=== PATIENT | female | born 1945 | race Caucasian/White ===

== ENCOUNTER 2018-03-30 14:43 | Emergency (ER) | payer OTHER, SELFPAY ==
[2018-03-30] VITALS (42 sets, daily range): BP systolic 98–143; BP diastolic 59–92; PULSE 75–101; RESP 12–33; TEMP 36.7–37; O2SAT 78–99
--- NOTE | 2018-03-30 15:27 | ED.GENADUL ---
Disposition Clinical Impression: Humerus fracture, Fall, Closed head injury without loss of consciousness, Alcohol use disorder, Alcohol intoxication Disposition: HOME Condition: Stable Instructions: Head Injury (ED), Alcohol Intoxication (ED), Proximal Humerus Fracture (ED) Additional Instructions: Take Tylenol as needed and directed for pain. Drink plenty of fluids and get plenty of rest. Take your regular medications as directed. Refrain from excessive alcohol use. Follow-up with your primary care doctor within the next week as needed. Follow-up with orthopedics in 2 weeks for reevaluation of your left shoulder fracture. Return to the emergency department with any worsening or new concerning symptoms. Referrals: Maximilian Villarreal MD [ [facility] STAFF PHYSICIAN] - Medical Decision Making - Lab Data Laboratory Results - last 24 hr 03/30/18 03/30/18 03/30/18 15:50 15:50 15:50 WBC 6.05 RBC 3.86 L Hgb 11.6 L Hct 35.8 L MCV 92.7 MCH 30.1 MCHC 32.4 RDW 17.1 H Plt Count 208 MPV 9.5 Immature Gran % 0.7 Neutrophils % 58.3 Lymphocytes % 29.1 Monocytes % 10.4 Eosinophils % 1.2 Basophils % 0.3 Absolute Neutrophils 3.53 Absolute Lymphocytes 1.76 Absolute Monocytes 0.63 Absolute Eosinophils 0.07 Absolute Basophils 0.02 Sodium 130 L Potassium 3.6 Chloride 93 L Carbon Dioxide 24.5 Anion Gap 12.5 H BUN 24 H Creatinine 1.93 H Estimated GFR/1.73 m2 25.59 Glucose 91 Calcium 9.9 Magnesium 2.4 Total Bilirubin 1.0 1.0 Conjugated Bilirubin 0.35 H AST 197 H 196 H ALT 124 H 124 H Alkaline Phosphatase 116 114 Troponin I < 0.02 Total Protein 6.8 6.8 Albumin 3.6 3.6 Urine Color Urine Clarity Urine pH Ur Specific [place] Urine Protein Urine Ketones Urine Blood Urine Nitrite Urine Bilirubin Urine Urobilinogen Ur Leukocyte Esterase Urine RBC Urine WBC Ur Epithelial Cells Urine Crystals Urine Bacteria Urine Casts Urine Mucus Urine Other Ur Culture Indicated? Urine Glucose Ethyl Alcohol 03/30/18 03/30/18 15:50 15:59 WBC RBC Hgb Hct MCV MCH MCHC RDW Plt Count MPV Immature Gran % Neutrophils % Lymphocytes % Monocytes % Eosinophils % Basophils % Absolute Neutrophils Absolute Lymphocytes Absolute Monocytes Absolute Eosinophils Absolute Basophils Sodium Potassium Chloride Carbon Dioxide Anion Gap BUN Creatinine Estimated GFR/1.73 m2 Glucose Calcium Magnesium Total Bilirubin Conjugated Bilirubin AST ALT Alkaline Phosphatase Troponin I Total Protein Albumin Urine Color Yellow Urine Clarity Cloudy Urine pH >= 9.0 H Ur Specific [place] 1.015 Urine Protein >=300 H Urine Ketones 15 H Urine Blood Negative Urine Nitrite Negative Urine Bilirubin Small H Urine Urobilinogen 0.2 Ur Leukocyte Esterase Trace H Urine RBC Negative Urine WBC 3-5 Ur Epithelial Cells Moderate Urine Crystals Negative Urine Bacteria Many Urine Casts Negative Urine Mucus Negative Urine Other Negative Ur Culture Indicated? Yes Urine Glucose Negative Ethyl Alcohol 169.2 03/30/18 1649: 70 bpm. Sinus. T-wave inversion in lead III and aVR seen in previous EKG. No acute ST elevation or depression. - Radiology Data Radiology results: report reviewed, image reviewed CT head: Senescent changes, no acute findings. CT cervical spine: Severe multilevel cervical degenerative changes. No acute fracture dislocation. Chest x-ray: Vertical lucency greater tuberosity left shoulder, suspicious for hairline fracture. No acute chest findings. Left shoulder x-ray: 1. Vertical cleft seen along medial margin greater tuberosity concerning for nondisplaced fracture. Recommend CT. 2. Resection of distal clavicle, no acute change from previous. CT left upper extremity: Hairline fracture of the greater tuberosity of the humerus, without distraction or displacement. Appears acute by CT imaging not present on prior study. - Medical Decision Making 72-year-old female with frequent admissions and ED visits for alcohol intoxication and withdrawal who presents status post fall at home. Admits to head injury and left shoulder injury. Also admits to neck pain but has a history of chronic neck and back pain. Admits to drinking alcohol this morning. He appears mildly intoxicated but otherwise is awake and alert and able to answer questions. No focal deficits. She has tenderness palpation and pain with range of motion of the left shoulder. Her abdomen is soft and nontender. No bony deformity to remainder of extremities. Vitals within normal limits. Will place an IV, give small bolus IV fluids, check labs, EKG, CT head and neck, chest x-ray, left shoulder x-ray. Patient is requesting medication for pain. Will hold on this due to head injury and likely alcohol intoxication. 1510: Left shoulder x-ray notes a questionable left shoulder fracture and recommend CT for further eval. Will order CT left upper extremity. Labs reviewed. Sodium 130. Creatinine 1.93. AST 196. ALT 124. Troponin negative. UA notes 3-5 WBCs. Alcohol 169. Imaging reviewed. Chest x-ray, CT head and C-spine negative for acute findings. 1840: CT left upper extremity notes hairline fracture of the greater tuberosity of the humerus. Will call orthopedics for recommendations. Case discussed with orthopedics Dr. Villarreal -recommends sling for left shoulder and follow-up in 2 weeks. Patient placed on care management list to arrange for a follow-up appointment with orthopedics. Patient states she feels good to go home. Patient has been eating and drinking and appears in no acute distress. She is alert and oriented ?3. Sister is going to pick patient up. Patient was instructed to return to the ER with any concerns per History of Present Illness - General Chief complaint: ETOHWithdr Stated complaint: LUÍS Time Seen by Provider: 03/30/18 14:46 Source: patient Mode of arrival: ambulatory Limitations: no limitations - History of Present Illness Initial comments: Patient is a 72-year-old female well-known to the emergency department for alcohol intoxication and withdrawal who presents for fall at home prior to arrival. Patient states her primary care doctor sent police for a welfare check and when they were knocking on the door her dogs were barking and she stood up quickly and fell down. Patient states this usually happens when her blood pressure is low. Patient states she hit her head but denies any LOC or vomiting. Patient also is complaining of left shoulder pain after hitting her left shoulder. She also admits to some mild neck pain. She denies chest pain, shortness of breath, hip pain, knee pain or right upper extremity pain. She states her primary care doctor sent the police for a welfare check because she spoke with her primary care doctor today regarding them not refilling her prescription of tramadol. Patient states she has been on tramadol for 20 years and takes 1 tab nightly to help with sleep and they will not refill this for her. States her last dose was 1 week ago. She does admit to drinking a few shots this morning. States her last drink before this was 5 days ago. Patient also states she recently received a prescription for a urinary tract infection but she did not yet start it. - Related Data Cholecalciferol (Vitamin D3) [Vitamin D3] 2 tab PO DAILY #100 tab-cap 09/03/16 Cyanocobalamin [Vitamin B-12] 1,000 mcg PO DAILY #100 tab-cap 09/03/16 Fluticasone Propionate [Flonase] 1 spr NS daily prn #3 bottle 09/03/16 Loperamide [Imodium] 2 mg PO QLOOSE PRN #30 cap 12/23/16 Multivitamin 1 tab PO DAILY #0 tab 02/04/17 Gabapentin 2 tab PO BID #360 cap 03/25/17 Magnesium Oxide 400 mg PO BID #180 tab-cap 06/28/17 Folic Acid 1 mg PO DAILY #90 tab 07/26/17 Ranitidine HCl 150 mg PO HS #30 tab-cap 10/21/17 Naltrexone HCl 50 mg PO DAILY #30 tab-cap 11/04/17 Omeprazole 40 mg PO DAILY #90 tab-cap 11/04/17 Pyridoxine HCl [Vitamin B-6] 50 mg PO nightly #60 cap 11/04/17 Thiamine Mononitrate [Vitamin B-1] 100 mg PO QAM #90 tab 11/04/17 Venlafaxine HCl [Venlafaxine HCl ER] 150 mg PO DAILY #90 tab-cap 11/04/17 Venlafaxine [Effexor] 37.5 mg PO DAILY #90 tab-cap 11/04/17 Metoprolol Succinate 50 mg PO DAILY #30 tab-cap 11/11/17 Trazodone HCl 100 mg PO hs prn tab-cap 11/18/17 Acetaminophen [Tylenol] 1,000 mg PO Q8H PRN PRN #0 tab 12/21/17 Ondansetron HCl 4 mg PO Q6H PRN PRN #15 tab-cap 12/21/17 Losartan [Cozaar] 100 mg PO DAILY #30 tab 02/20/18 Sulfamethoxazole/Trimethoprim [Sulfamethoxazole-Tmp Ds Tablet] 1 tab-cap PO BID #10 tab-cap 03/28/18 Potassium Chloride 20 meq PO BID #180 tab-cap 03/30/18 Allergies Allergy/AdvReac Type Severity Reaction Status Date / Time Penicillins Allergy Mild Rash Unverified 03/30/18 15:04 ramipril Allergy Unknown ITCHING Unverified 03/30/18 15:04 meperidine [From Demerol] AdvReac Severe Nausea Unverified 03/30/18 15:04 bupropion AdvReac Mild GI upset Unverified 03/30/18 15:04 AMBER Inhibitors AdvReac Unknown COUGH Unverified 03/30/18 15:04 alendronate sodium AdvReac Unknown GI Distress Unverified 03/30/18 15:04 clarithromycin AdvReac Unknown intolerant Unverified 03/30/18 15:04 paroxetine AdvReac Unknown Diarrhea Unverified 03/30/18 15:04 Review of Systems Constitutional: denies: chills, fever Eyes: denies: eye pain ENT: denies: ear pain, dental pain Respiratory: denies: cough, shortness of breath Cardiovascular: denies: chest pain, dyspnea on exertion Gastrointestinal: denies: abdominal pain, nausea, vomiting Genitourinary: denies: urgency, dysuria, frequency Musculoskeletal: back pain (chronic ), other (Left shoulder pain) Skin: denies: rash, lesions Neurological: headache. denies: weakness, numbness Past Medical History - Past Medical History Medical history: arthritis, GERD, GI bleed, hyperlipidemia, hypertension ETOH abuse, Chronic back and neck pain, Wernicke's encephalopathy Surgical history: other (bladder repair) Family history: no significant family history - Social History Smoking status: never smoker Alcohol use: heavy Drug use: none General Exam - General Limitations: no limitations General appearance: alert, appears intoxicated (mildly) - Eye Eye exam: Present: PERRL, EOMI - ENT ENT exam: Present: mucous membranes dry, mucous membranes moist, TM's normal bilaterally - Neck Neck exam: Present: normal inspection, other (no midline c-spine tenderness) - Respiratory Respiratory exam: Present: normal lung sounds bilaterally. Absent: respiratory distress, wheezes, rales, rhonchi, stridor, chest wall tenderness - Cardiovascular Cardiovascular Exam: Present: regular rate, normal rhythm. Absent: bradycardia, tachycardia - GI/Abdominal GI/Abdominal exam: Present: soft, normal bowel sounds. Absent: distended, tenderness, guarding, rebound, rigid - Extremities Exam Extremities exam: Present: other (Pain with range of motion and tenderness to palpation of left anterior and lateral shoulder. Old healing ecchymosis noted to left upper arm. Full range of motion at right upper extremity and bilateral lower extremities without pain or deformity. Bilateral DP/PT pulse intact.) - Back Exam Back exam: Present: normal inspection. Absent: vertebral tenderness - Neurological Exam Neurological exam: Present: alert, oriented X3 - Psychiatric Psychiatric exam: Present: normal affect - Skin Skin exam: Present: warm, dry, intact Course Vital Signs - 24 hr 03/30/18 14:58 Temperature 98.6 F Pulse 75 Respiratory 16 Rate Blood Pressure 99/63 Pulse Oximetry 95
--- NOTE | 2018-03-30 15:28 | DI.REPORT_ITS ---
SYMPTOM/DIAGNOSIS: FALL, HYPOTENSION, R/O ACUTE DISEASE CHEST X-RAY: Frontal and lateral views. Comparison 02/17/18 Heart size and pulmonary vasculature are within normal limits. The lungs are clear. No effusions or pneumothoraces are identified. There is a vertical lucency seen at the base of the greater tuberosity of the proximal left humerus suspicious for a fracture. Post surgical changes, post traumatic changes are seen at the left acromioclavicular joint. Old right rib fractures are noted. IMPRESSION: 1. No acute pulmonary process. 2. Findings of a nondisplaced fracture involving the greater tuberosity of the left humerus.
[2018-03-30] MEDS: Normal Saline 1,000 ML 125 ML IV (15:30)
--- NOTE | 2018-03-30 15:45 | DI.RPTCT_ITS ---
SYMPTOM/DIAGNOSIS: S/P FALL AT HOME, R/O INTRACRANIAL INJURY, CERVICAL FRACTURE CT BRAIN: Noncontrast examination was performed. Comparison is 08/27/17. There is age appropriate cerebral atrophy and small vessel ischemic disease. No acute intracranial hemorrhage, midline shift or mass effect is identified. No evidence of a calvarial fracture is seen. The visualized paranasal sinuses are clear. The mastoid air cells are well pneumatized. IMPRESSION: No acute intracranial process. CT CERVICAL SPINE: Multiple contiguous axial images of the cervical spine were obtained. Sagittal and coronal reformatted images were evaluated on the [facility]'s work station. No acute fracture or subluxation of the cervical spine is seen. 3 mm anterolisthesis of C3 on C4 is noted. There is marked disc space narrowing at C4-5, C5-6, and C6-C7. End plate osteophytes are present at each of these levels. There is 2 mm anterolisthesis of C5 on C6. There is no significant pre-vertebral soft tissue swelling. The lung apices appear clear. IMPRESSION: 1. No acute fractures or subluxations in the cervical spine. 2. Severe degenerative changes in the cervical spine as described above.
--- NOTE | 2018-03-30 15:46 | DI.REPORT_ITS ---
SYMPTOM/DIAGNOSIS: S/P FALL, R/O ACUTE FRACTURE LEFT SHOULDER: Multiple views. There is a nondisplaced fracture through the greater tuberosity. No other acute fracture or dislocation seen. There are findings of a partial resection of the distal clavicle. The soft tissues are unremarkable. IMPRESSION: Nondisplaced fracture of the greater tuberosity of the proximal left humerus.
[2018-03-30 15:55] LABS: Abs Immature Grans 0.04 k/cumm (0.0-0.09); Absolute Basophil Count 0.02 k/cumm (0.0-0.2); Absolute Eosinophil Count 0.07 k/cumm (0.0-0.7); Absolute Lymphocyte Count 1.76 k/cumm (1.2-3.4); Absolute Monocyte Count 0.63 k/cumm (0.11-0.7); Absolute Neutrophil Count 3.53 k/cumm (1.2-6.7); Basophils % 0.3; Eosinophils % 1.2; HCT 35.8 % (36.0-46.0); HGB 11.6 g/dL (12.0-15.5); Immature Grans % 0.7; Lymphocytes % 29.1; Mean Corp. HGB Concentration 32.4 g/dL (32.0-36.0); Mean Corpuscular Hemoglobin 30.1 pg (27.0-33.0); Mean Corpuscular Volume 92.7 fL (80-95); Mean Platelet Volume 9.5 fL (8.0-11.0); Monocytes % 10.4; Neutrophils % 58.3; Platelet Count 208 x1000/uL (130-400); RBC 3.86 m/cumm (4.00-5.20); RBC Distribution Width 17.1 % (11.7-14.6); White Blood Cell Count 6.05 k/cumm (4.4-10.8)
[2018-03-30 16:03] LABS: Bilirubin Small (Negative); Blood Negative (Negative); Clarity Cloudy; Glucose Negative (Negative); Ketones 15 mg/dL (Negative); Leukocyte Esterase Trace (Negative); Nitrite Negative (Negative); Specific Gravity 1.015 (1.005-1.025); Urobilinogen 0.2 EU/dL (Up TO 0.2); pH >= 9.0 (5-8)
[2018-03-30 16:14] LABS: ETHANOL BLOOD 169.2 mg/dL (<3)
[2018-03-30 16:18] LABS: RBC Negative (0-2)
[2018-03-30 16:19] LABS: Bacteria Many HPF (Negative); C & S Indicated? Yes; Casts Negative LPF (Negative); Crystals Negative HPF (Negative); Epithelial Cells Moderate HPF (Negative); Mucus Negative (Negative); Other Cells Negative (Negative)
[2018-03-30 16:34] LABS: ALT 124 U/L (12-78); AST 196 U/L (15-37); Albumin 3.6 g/dL (3.4-5.0); Alkaline Phosphatase 114 U/L (46-116); Bilirubin, Direct 0.35 mg/dL (0.00-0.20); Total Protein 6.8 g/dL (6.4-8.2)
[2018-03-30 16:37] LABS: ALT 124 U/L (12-78); AST 197 U/L (15-37); Albumin 3.6 g/dL (3.4-5.0); Alkaline Phosphatase 116 U/L (46-116); Anion Gap 12.5 mmol/L (3-11); BUN 24 mg/dL (7-18); CO2 24.5 mmol/L (21.0-32.0); CREATININE 1.93 mg/dL (0.55-1.02); Calcium 9.9 mg/dL (8.5-10.1); Chloride 93 mmol/L (98-107); Estimated GFR 25.59 (mL/min/1.73m2); Glucose 91 mg/dL (70-100); Magnesium 2.4 mg/dL (1.8-2.4); Potassium 3.6 mmol/L (3.5-5.1); Sodium 130 mmol/L (136-145); Total Protein 6.8 g/dL (6.4-8.2)
[2018-03-30 16:40] LABS: Troponin I < 0.02 ng/mL (0.00-0.06)
--- NOTE | 2018-03-30 16:53 | DI.VRAD_ITS ---
EXAM: XR Left Shoulder Complete, 2 or More Views CLINICAL HISTORY: 72 years old, female; Pain; Shoulder; Left; Patient HX: S/P fall, rule out acute FX TECHNIQUE: Two or more views of the left shoulder. COMPARISON: No relevant prior studies available. FINDINGS: Bones/joints: There is a vertical cleft is seen along the medial margin of the greater tuberosity. Findings are consistent with nondisplaced greater tuberosity fracture. There has been resection of the distal clavicle, with an inferior osteophyte. I do not see any appreciable change in the clavicle compared to a prior portable chest x-ray dated 02/17/2018. No dislocation. Soft tissues: Unremarkable. IMPRESSION: 1. There is a vertical cleft is seen along the medial margin of the greater tuberosity. Findings are consistent with nondisplaced greater tuberosity fracture. This is worrisome for acute fracture, and clinical correlation is recommended. CT scanning may be helpful to confirm suspected acute fracture if there is pain referable to the humeral head laterally. 2. There has been resection of the distal clavicle, with an inferior osteophyte. I do not see any appreciable change in the clavicle compared to a prior portable chest x-ray dated 02/17/2018. Dictated and Authenticated by: Arash Rodriguez MD. Ordering:KATE FOWLER MD
--- NOTE | 2018-03-30 16:55 | DI.VRAD_ITS ---
EXAM: XR Chest, 2 Views CLINICAL HISTORY: 72 years old, female; Signs and symptoms; Other: Hypotension, fall, rule out acute disease. TECHNIQUE: Frontal and lateral views of the chest. COMPARISON: CR - PORTABLE CHEST ONE VIEW 2018-02-17 10:59 FINDINGS: Lungs: Unremarkable. No consolidation. Pleural space: Unremarkable. No pneumothorax. Heart: Unremarkable. No cardiomegaly. Mediastinum: Unremarkable. Bones/joints: There has been previous resection of the distal left clavicle. There is a vertical lucency seen through the greater tuberosity on the left, suspicious for a hairline fracture. This was discussed in a separate x-ray clavicle report. Old, healed right upper rib fractures are noted incidentally. Vasculature: There is mild tortuosity of the descending aorta. IMPRESSION: There has been previous resection of the distal left clavicle. There is a vertical lucency seen through the greater tuberosity on the left, suspicious for a hairline fracture. This was discussed in a separate x-ray clavicle report. Dictated and Authenticated by: Arash Rodriguez MD. Ordering:KATE FOWLER MD
--- NOTE | 2018-03-30 16:56 | DI.RPTCT_ITS ---
SYMPTOM/DIAGNOSIS: S/P FALL, PAIN IN LEFT SHOULDER, ? FX ON X-RAY, R/O ACUTE FRACTURE ON CT CT LEFT SHOULDER: Multiple contiguous axial images of the left shoulder were obtained. Sagittal and coronal reformatted images were evaluated on the [employer]'s work station. There is a nondisplaced fracture involving the anterior aspect of the greater tuberosity of the proximal left humerus. No other fracture or dislocation is identified. There has been resection of the distal clavicle. Soft tissues are unremarkable. The visualized lungs are clear. IMPRESSION: Nondisplaced fracture of the greater tuberosity of the proximal left humerus.
--- NOTE | 2018-03-30 17:04 | DI.VRAD_ITS ---
EXAM: CT Head Without Intravenous Contrast CLINICAL HISTORY: 72 years old, female; Signs and symptoms; Other: S/P fall at home, R/O intracranial injury; Other: S/P fall at home, R/O cervical FX. TECHNIQUE: Axial computed tomography images of the head/brain without intravenous contrast. All CT scans at this facility use at least one of these dose optimization techniques: automated exposure control; mA and/or kV adjustment per patient size (includes targeted exams where dose is matched to clinical indication); or iterative reconstruction. Coronal and sagittal reformatted images were created and reviewed. COMPARISON: No relevant prior studies available. FINDINGS: Brain: Unremarkable. No hemorrhage. No significant white matter disease. No edema. Ventricles: There is moderate diffuse involutional change with commensurate ventriculomegaly. Bones/joints: Unremarkable. No acute fracture. Soft tissues: Unremarkable. Sinuses: Unremarkable as visualized. No acute sinusitis. Mastoid air cells: Unremarkable as visualized. No mastoid effusion. IMPRESSION: Senescent changes with no evidence of acute intracranial trauma. EXAM: CT Cervical Spine Without Intravenous Contrast CLINICAL HISTORY: 72 years old, female; Signs and symptoms; Other: S/P fall at home, R/O intracranial injury; Other: S/P fall at home, R/O cervical FX. TECHNIQUE: Axial computed tomography images of the cervical spine without intravenous contrast. All CT scans at this facility use at least one of these dose optimization techniques: automated exposure control; mA and/or kV adjustment per patient size (includes targeted exams where dose is matched to clinical indication); or iterative reconstruction. Coronal and sagittal reformatted images were created and reviewed. COMPARISON: CT - HEAD WITHOUT CONTRAST 2017-08-27 21:13 FINDINGS: Vertebrae: There is a moderate, grade 1 anterolisthesis of C3 on C4 with moderate posterior disc narrowing. Severe associated right facet hypertrophy suggests a likely degenerative listhesis. Discs/spinal canal/neural foramina: There is severe disc narrowing and degenerative changes C4-5 with uncinate hypertrophy. There is moderate to severe disc narrowing at C5-6 with a grade 1 anterolisthesis. There is severe left and moderate right facet arthropathy again suggesting a degenerative listhesis. There is mild disc narrowing at C6-7. Soft tissues: Unremarkable. Lung apices: Unremarkable as visualized. IMPRESSION: Severe, multilevel cervical degenerative changes. No acute fracture, dislocation or other acute traumatic injury is seen. Dictated and Authenticated by: Arash Rodriguez MD. Ordering:KATE FOWLER MD
--- NOTE | 2018-03-30 18:21 | DI.VRAD_ITS ---
EXAM: CT Left Upper Extremity Without Intravenous Contrast, Shoulder CLINICAL HISTORY: 72 years old, female; Pain; Shoulder; Left; Patient HX: S/P fall, pain, questioning shoulder FX. On x-ray. TECHNIQUE: Axial computed tomography images of the left shoulder without intravenous contrast. All CT scans at this facility use at least one of these dose optimization techniques: automated exposure control; mA and/or kV adjustment per patient size (includes targeted exams where dose is matched to clinical indication); or iterative reconstruction. Coronal and sagittal reformatted images were created and reviewed. COMPARISON: CT - LT.UPPER EXTREMITY WO CONTRAST 2016-05-17 10:58 FINDINGS: Bones/joints: There is a hairline fracture of the greater tuberosity of the humerus, without distraction or displacement. There has been resection of the distal clavicle, appearing stable compared to prior studies. No dislocation. Soft tissues: Unremarkable. IMPRESSION: There is a hairline fracture of the greater tuberosity of the humerus, without distraction or displacement. This appears acute by CT imaging, and was not present on the prior study. Chronic distal clavicular surgical changes. Dictated and Authenticated by: Arash oRdriguez MD. Ordering:KATE FOWLER MD
--- NOTE | 2018-03-31 17:04 | PDOC.ERCMPRO ---
Care Management Progress Note 03/31/18-Pt seen on 03/30/18 for a Left hairline fracture of her humerus. She was seen by Dr. Ana Cristina Foster who requestes f/u with Ortho within 2 weeks. Referral faxed.
--- NOTE | 2018-04-04 18:23 | ED.FU.B ---
- Follow Up Follow Up Plan: I called and spoke with patient and reviewed results. She notes no fever or dysuria but has had urinary incontinence. I have called in a prescription for nitrofurantoin to her pharmacy [facility] in [place]. I advised that she take the full course of antibiotic as prescribed and follow-up with pcp.
--- NOTE | 2018-04-04 18:33 | ED.FU.B_ITS ---
- Follow Up Follow Up Plan: I called and spoke with patient and reviewed results. She notes no fever or dysuria but has had urinary incontinence. I have called in a prescription for nitrofurantoin to her pharmacy [facility] in [place]. I advised that she take the full course of antibiotic as prescribed and follow- up with pcp.
== END 2018-03-30 20:21 | disposition home or self-care (01) ==
PROVIDERS: Emergency Provider Physician Assistant; PCP Family Medicine
DX: S42.255A Nondisplaced fracture of greater tuberosity of left humerus, initial encounter for closed fracture (principal); S09.90XA Unspecified injury of head, initial encounter; F10.129 Alcohol abuse with intoxication, unspecified; Y90.6 Blood alcohol level of 120-199 mg/100 ml; W18.30XA Fall on same level, unspecified, initial encounter; I10 Essential (primary) hypertension
CPT/HCPCS: 36415; 80053; 80076; 87077; 93005; 96360; 96361; 99285; 70450; 71046; 72125; 73030; 73200; 80320; 81003; 81015; 83735; 84484; 85025; 87086; 87186; 93010; L3650

== ENCOUNTER → 2018-04-10 11:25 | Outpatient (CLI) | payer OTHER, SELFPAY | PROVIDERS: PCP Family Medicine; Visit Provider Nurse Practitioner Gerontology | DX: R32 Unspecified urinary incontinence (principal); I10 Essential (primary) hypertension; Z87.440 Personal history of urinary (tract) infections; Z91.14 Patient's other noncompliance with medication regimen | CPT/HCPCS: 99215 ==

== ENCOUNTER → 2018-04-24 12:12 | Outpatient (REF) | payer OTHER, SELFPAY ==
[2018-04-24 15:08] LABS: ALT 53 U/L (12-78); AST 49 U/L (15-37); Albumin 3.3 g/dL (3.4-5.0); Alkaline Phosphatase 108 U/L (46-116); Anion Gap 4.7 mmol/L (3-11); BUN 19 mg/dL (7-18); Bilirubin, Total 0.4 mg/dL (0.2-1.0); CO2 29.3 mmol/L (21.0-32.0); CREATININE 0.92 mg/dL (0.55-1.02); Calcium 9.6 mg/dL (8.5-10.1); Chloride 103 mmol/L (98-107); Glucose 89 mg/dL (70-100); Magnesium 1.7 mg/dL (1.8-2.4); Potassium 4.9 mmol/L (3.5-5.1); Sodium 137 mmol/L (136-145)
== END ==
LOC: LBN 12:12
PROVIDERS: PCP Family Medicine; Visit Provider Family Medicine
DX: I10 Essential (primary) hypertension (principal); F33.9 Major depressive disorder, recurrent, unspecified; J20.9 Acute bronchitis, unspecified; E78.5 Hyperlipidemia, unspecified; D64.9 Anemia, unspecified
CPT/HCPCS: 80053; 83735

== ENCOUNTER → 2018-04-24 15:33 | Outpatient (CLI) | payer OTHER, SELFPAY ==
--- NOTE | 2018-04-24 15:09 | DI.REPORT_ITS ---
SYMPTOMS/DIAGNOSIS: LEFT PROXIMAL HUMERUS FX LEFT SHOULDER: Three views. Comparison is 03/30/18. There is a healing nondisplaced fracture of the greater tuberosity of the left humerus. Posttraumatic or postsurgical changes of the distal clavicle appear stable. Soft tissues are unremarkable.
== END ==
PROVIDERS: PCP Family Medicine; Visit Provider Physician Assistant
DX: S42.255A Nondisplaced fracture of greater tuberosity of left humerus, initial encounter for closed fracture (principal); S22.42XA Multiple fractures of ribs, left side, initial encounter for closed fracture; W18.30XA Fall on same level, unspecified, initial encounter; I10 Essential (primary) hypertension
CPT/HCPCS: 99214; 73030

== ENCOUNTER 2018-05-17 00:38 | Inpatient (IN) | payer OTHER, SELFPAY ==
[2018-05-17] VITALS (59 sets, daily range): BP systolic 122–203; BP diastolic 62–108; PULSE 92–139; RESP 16–30; TEMP 36.2–37.5; O2SAT 88–100
[2018-05-17] MEDS: Normal Saline 1,000 ML 1000 ML IV ×2 (00:49→01:53)
[2018-05-17] MEDS: Ondansetron 4 MG/2 ML VIAL (00:52)
[2018-05-17] MEDS: FAMOTIDINE 20 MG/50 ML BAG 200 MG (00:52)
[2018-05-17] MEDS: LORazepam 2 MG/ML VIAL (00:53)
[2018-05-17] MEDS: THIAMINE 100 MG in Normal Saline 100 ML 200 MG IVPB (01:01)
[2018-05-17] MEDS: Folic Acid 1 MG TAB PO (01:01)
--- NOTE | 2018-05-17 01:03 | ED.GENADUL_ITS ---
Discharge Plan Disposition Patient Disposition: [facility] INPATIENT Condition: Fair Discharge Details Chief Complaint: Dizzy/Sync Clinical Impression: Alcohol withdrawal, Hypomagnesemia, Alcoholic ketoacidosis Reason For Visit: ACUTE ALCOHOL WITHDRAWAL, ALCOHOLIC KETOACIDOSIS Admit Date/Time: 05/17/18 02:35 Admit Provider: Saeed Cosme Attending Provider: Saeed Cosme Primary Care Provider: Lavelle Galindo ED Provider: Megan Foster Discharge Data Discharge Date/Time-TO BE ENTERED AT DEPARTURE: 05/17/18 03:26 Medical Decision Making MDM Narrative Medical decision making narrative: 73-year-old female with a history of alcohol abuse who has had multiple ED visits for alcohol intoxication and alcohol withdrawal as well as admissions for alcohol withdrawal and electrolyte abnormality including hypokalemia and hypomagnesemia who presents for vomiting and dizziness since this afternoon. Last alcoholic drink 4 days ago. BP on arrival 172/108. Heart rate 139. Patient is alert and oriented ?3. No tremor noted. She has mild epigastric tenderness. No focal deficits. 0043 --EKG notes a rate of 138 in sinus tachycardia, nonspecific millimeter ST depression noted in [address] and aVL. No acute ST elevation. QTc 500. QRS 96. Patient had an IV placed on arrival, will give a dose of Pepcid, Zofran, Ativan as well as bolus IV fluids, thiamine and folic acid. Suspect acute alcohol withdrawal. Patient is on Zofran on her medication list. QTc 500 on EKG. We will continue german tutor for assessment for any arrhythmias or prolonged QT. We will check labs, urinalysis, alcohol, chest x-ray. 0130 --CXR negative. HR had decreased to 120s but now increasing to 130s while pt sleeping. BP 180/90. Will give another liter and another dose ativan. 0230 --Lab unable to report lipase due to problem with calibration machine. States won't be able to fix machine likely until the morning. Blood did not appear lipemic. Labs reviewed and note white blood cell count 12, hemoglobin 11, potassium 3.4, bicarb 14.5, anion gap 29.5, creatinine 1.2, glucose 261, magnesium 1.4, T bili 1.6, AST 39, ALT 40, alk phos 149, troponin negative, urinalysis notes 160 ketones and 100 protein, 10-20 WBCs but negative leukocyte esterase and nitrate. Alcohol negative. Potassium and magnesium repletion ordered. Her rate improved to 120s. Blood pressure improved to 164/78. Patient sleeping and resting comfortably. Will admit for alcohol withdrawal/alcohol ketoacidosis. 0235 --case discussed with Dr. Cosme -accepts patient for admission. Notified of pending lipase. Will continue fluids and Ativan and CIWA. HPI - General Adult General Mode of arrival: EMS . Date/Time Provider Initiated Documentation: 05/17/18 00:50 . Limitations to Documentation: no limitations . Information obtained by: patient . HPI Narrative: Patient is a 73-year-old female with a history of alcoholism who is well-known to the emergency department for visits for alcohol intoxication, alcohol withdrawal, hypokalemia, and hypomagnesemia who presents for vomiting and dizziness since this afternoon. States she has vomited more than 10 times. States her last vomiting was prior to arrival in which she vomited brown material that she states filled a grocery bag. She admits to epigastric pain. She states her last alcoholic drink was 4 days ago. She states she had been drinking every day for an unknown amount of time prior to then. She denies fever, chest pain, shortness of breath, urinary symptoms, diarrhea, recent travel, sick contacts, recent surgery, recent antibiotics. Past medical history: GERD, hypertension, hyperlipidemia, alcohol abuse, pancreatitis, gastritis Past surgical history: Tubal, bladder surgery Social history: Alcohol abuse Medications: See list Allergies: See list Related Data Home Medications Medication Instructions Recorded Confirmed cholecalciferol (vitamin D3) 2 tab PO DAILY #100 tab-cap 09/03/16 05/17/18 cyanocobalamin (vitamin B-12) 1,000 mcg PO DAILY #100 tab-cap 09/03/16 05/17/18 [Vitamin B-12] fluticasone 1 spr NS daily prn #3 bottle 09/03/16 05/17/18 gabapentin 2 tab PO BID #360 cap 03/25/17 05/17/18 trazodone 100 mg PO hs prn tab-cap 11/18/17 05/17/18 Previous Rx's Medication Instructions Recorded loperamide 2 mg PO QLOOSE PRN #30 cap 12/23/16 multivitamin [Multiple Vitamins] 1 tab PO DAILY #0 tab 02/04/17 magnesium oxide 400 mg PO BID #180 tab-cap 06/28/17 folic acid 1 mg PO DAILY #90 tab 07/26/17 ranitidine HCl 150 mg PO HS #30 tab-cap 10/21/17 naltrexone 50 mg PO DAILY #30 tab-cap 11/04/17 pyridoxine (vitamin B6) [Vitamin 50 mg PO nightly #60 cap 11/04/17 B-6] thiamine mononitrate (vit B1) 100 mg PO QAM #90 tab 11/04/17 venlafaxine 37.5 mg PO DAILY #90 tab-cap 11/04/17 venlafaxine 150 mg PO DAILY #90 tab-cap 11/04/17 ondansetron HCl 4 mg PO Q6H PRN PRN #15 tab-cap 12/21/17 losartan 100 mg PO DAILY #30 tab 02/20/18 potassium chloride 20 meq PO BID #180 tab-cap 03/30/18 acetaminophen [Mapap Extra 500 mg PO Q6H tab 04/17/18 Strength] pantoprazole 40 mg PO BID@0730,2000 tabcr 04/17/18 polyethylene glycol 3350 17 gm PO DAILY PRN PRN packet 04/17/18 spironolactone 25 mg PO DAILY tab 04/17/18 thiamine mononitrate (vit B1) 100 mg PO DAILY tab 04/17/18 [Vitamin B-1 (mononitrate)] tramadol 50 mg PO Q6H PRN PRN tab 04/17/18 Allergies Allergy/AdvReac Type Severity Reaction Status Date / Time Penicillins Allergy Mild Rash Unverified 05/17/18 00:43 ramipril Allergy Unknown ITCHING Unverified 05/17/18 00:43 meperidine [From Demerol] AdvReac Severe Nausea Unverified 05/17/18 00:43 bupropion AdvReac Mild GI upset Unverified 05/17/18 00:43 AMBER Inhibitors AdvReac Unknown COUGH Unverified 05/17/18 00:43 alendronate sodium AdvReac Unknown GI Distress Unverified 05/17/18 00:43 clarithromycin AdvReac Unknown intolerant Unverified 05/17/18 00:43 paroxetine AdvReac Unknown Diarrhea Unverified 05/17/18 00:43 General Stated Complaint: Dizzy/Sync JORDAN: 2 Review of Systems Review of Systems All systems reviewed & are unremarkable except as noted in HPI and below Constitutional Denies chills, Denies excessive sweating, Denies fever(s) and Denies weight loss Eyes Patient Reports system reviewed and no additional complaints, except as docu and Denies blurry vision ENT Denies vertigo, Reports dizziness, Denies otalgia, Denies nasal congestion, Denies sore throat and Denies throat swelling Cardiovascular Denies chest pain, Denies syncope, Denies rapid heart rate and Denies dyspnea Respiratory Denies dyspnea Gastrointestinal Reports abdominal pain, Denies diarrhea and Reports vomiting Genitourinary Denies hematuria, Denies dysuria and Denies flank pain Musculoskeletal Denies back pain and Denies joint swelling Integumentary/Breasts Denies lesions and Denies rash Neurologic Denies behavioral changes, Denies confusion, Denies vertigo, Reports dizziness and Denies syncope Psychiatric Denies behavioral changes, Denies confusion and Denies depression Endocrine Denies excessive sweating Hematologic/Lymphatic Denies easy bruising and Denies lymphadenopathy Allergic/Immunologic Denies throat swelling [facility] Family History Mother No problems noted. Father No problems noted. Sister Personal history of malignant neoplasm Sister No problems noted. Grandfather Personal history of malignant neoplasm Grandfather Personal history of malignant neoplasm Grandmother Heart disease Acute ill-defined cerebrovascular disease Grandmother Personal history of malignant neoplasm AUNT Heart disease AUNT Heart disease Brother No problems noted. Medical History Alcohol abuse Depression Essential hypertension Hyperlipidemia Osteoarthritis Sciatica Urinary incontinence Social History Smoking/Tobacco Use Status: Former Tobacco Use Surgical History Bladder Surgery Colonoscopy - MAC (01/28/17) EGD - MAC (12/20/16) Ligation of fallopian tube Repair bladder injury, simple Exam Const General: cooperative, no acute distress, disheveled and ill appearing Orientation: alert, awake and oriented x3 HENMT Head: normal to inspection Ears: hearing grossly normal bilaterally and external ears normal General nose exam: external nose normal Face and sinus: normal facial exam Mouth: moist mucous membranes Eyes General: appearance normal, both eyes and all related structures Eyelids: eyelids normal Sclera: scleral abnormality (mild icterus b/l) Pupils: PERRL EOM: EOM intact bilaterally Neck Neck: normal visual inspection Lymphatic: no lymphadenopathy noted Chest Chest: normal inspection of the chest Resp Effort & Inspection: normal respiratory effort and able to speak in complete sentences Auscultation: clear to auscultation bilaterally Cardio Rate: tachycardic Rhythm: regular rhythm GI Inspection: normal to inspection Palpation: soft, not firm, no guarding, no hepatosplenomegaly, no masses, tender in the epigastrum (mild) and No ascites Auscultation: normal bowel sounds Skin General skin exam: no rashes or lesions noted Neuro General: alert, awake and oriented x3 Cognition: normal cognition Speech: speech normal Motor: muscle tone normal throughout, strength 5/5 throughout (some pain with movement of LUE due to recent humerus fracture), fasciculations noted, no tremors and No asterixis Sensory Exam: no sensory deficits noted DTR's: Rt Patellar: 1+, Lt Patellar: 1+, Rt Ankle: 1+ and Lt Ankle: 1+ Plantar Reflexes: Equivocal: bilateral Extrem General: normal to inspection, full ROM, normal capillary refill, no edema and no pedal edema Psych Appearance: grossly normal Mental Status: mental status grossly normal Speech and Movement: speech and movement normal Affect: normal affect Thought Process: normal Course Vital Signs Temperature 98.2 F 05/17/18 00:35 Pulse 139 H 05/17/18 00:35 Respiratory Rate 23 05/17/18 00:35 Blood Pressure 172/108 H 05/17/18 00:35 Pulse Oximetry 99 05/17/18 00:35 Temperature 98.2 F 05/17/18 00:35 Pulse 139 H 05/17/18 00:35 Respiratory Rate 23 05/17/18 00:35 Blood Pressure 172/108 H 05/17/18 00:35 Pulse Oximetry 99 05/17/18 00:35
--- NOTE | 2018-05-17 01:05 | DI.RAD_ITS ---
SYMPTOM/DIAGNOSIS: VOMITING, DIZZINESS PORTABLE AP CHEST: The heart is not enlarged. The lungs are grossly clear and well expanded. CONCLUSION: No evidence of acute disease. Old healed rib fractures noted bilaterally.
[2018-05-17 01:13] LABS: Bilirubin Negative (Negative); Blood Negative (Negative); Clarity Clear; Glucose 100 mg/dL (Negative); Ketones >=160 mg/dL (Negative); Leukocyte Esterase Negative (Negative); Nitrite Negative (Negative); Specific Gravity 1.025 (1.005-1.025); Urobilinogen 0.2 EU/dL (Up TO 0.2); pH 5.5 (5-8)
[2018-05-17 01:14] LABS: Abs Immature Grans 0.02 k/cumm (0.0-0.09); Absolute Basophil Count 0.01 k/cumm (0.0-0.2); Absolute Eosinophil Count 0.01 k/cumm (0.0-0.7); Absolute Lymphocyte Count 0.29 k/cumm (1.2-3.4); Absolute Monocyte Count 0.39 k/cumm (0.11-0.7); Absolute Neutrophil Count 11.76 k/cumm (1.2-6.7); Basophils % 0.1; Eosinophils % 0.1; HCT 35.5 % (36.0-46.0); HGB 11.6 g/dL (12.0-15.5); Immature Grans % 0.2; Lymphocytes % 2.3; Mean Corp. HGB Concentration 32.7 g/dL (32.0-36.0); Mean Corpuscular Hemoglobin 31.3 pg (27.0-33.0); Mean Corpuscular Volume 95.7 fL (80-95); Mean Platelet Volume 10.2 fL (8.0-11.0); Monocytes % 3.1; Neutrophils % 94.2; Platelet Count 213 x1000/uL (130-400); RBC 3.71 m/cumm (4.00-5.20); RBC Distribution Width 17.9 % (11.7-14.6); White Blood Cell Count 12.48 k/cumm (4.4-10.8)
--- NOTE | 2018-05-17 01:16 | DI.VRAD_ITS ---
EXAM: XR Chest, 1 View CLINICAL HISTORY: 73 years old, female; Signs and symptoms; Other: Vomiting \T\ dizziness; Patient HX: Vomiting, dizziness, TECHNIQUE: Frontal view of the chest. COMPARISON: No relevant prior studies available. FINDINGS: Lungs: Unremarkable. No consolidation. Pleural space: Unremarkable. No pneumothorax. Heart: Unremarkable. No cardiomegaly. Mediastinum: Unremarkable. Bones/joints: Old rib fracture deformities. IMPRESSION: No acute findings. Dictated and Authenticated by: Edilberto Allen MD. Ordering:KATE FOWLER MD
[2018-05-17 01:30] LABS: ALT 40 U/L (12-78); AST 39 U/L (15-37); Alkaline Phosphatase 149 U/L (46-116); Anion Gap 29.5 mmol/L (3-11); BUN 21 mg/dL (7-18); Bilirubin, Direct 0.33 mg/dL (0.00-0.20); Bilirubin, Total 1.6 mg/dL (0.2-1.0); CO2 14.5 mmol/L (21.0-32.0); Calcium 9.9 mg/dL (8.5-10.1); Chloride 95 mmol/L (98-107); Estimated GFR 44.16 (mL/min/1.73m2); Glucose 261 mg/dL (70-100); Potassium 3.4 mmol/L (3.5-5.1); Sodium 139 mmol/L (136-145); Total Protein 7.5 g/dL (6.4-8.2); Troponin I 0.02 ng/mL (0.00-0.06)
[2018-05-17 01:39] LABS: Bacteria Many HPF (Negative); C & S Indicated? Yes; Casts 3-5 Hyaline LPF (Negative); Crystals Negative HPF (Negative); Epithelial Cells Few HPF (Negative); Mucus Trace (Negative); Other Cells Rare Transitional (Negative); RBC 0-2 (0-2)
[2018-05-17 01:45] LABS: ETHANOL BLOOD < 3.0 mg/dL (<3)
[2018-05-17 01:46] LABS: Magnesium 1.4 mg/dL (1.8-2.4)
[2018-05-17] MEDS: LORazepam 2 MG/ML VIAL 0.5 MG IVP (01:52)
--- NOTE | 2018-05-17 01:59 | NUR.NOTE ---
Nursing Note: Pt is unable to state her current medication list. Was here roughly 1 month ago for inpatient admission and she does not believe there have been any changes in her medications since that time. States she has home nursing who come in and set up medications for her in a pill box I take whatever is in my pill box. aware.
[2018-05-17] MEDS: MAGNESIUM SULFATE 2 GM/50 ML BAG IVPB (02:04)
[2018-05-17] MEDS: POTASSIUM CHLORIDE 10 MEQ/100 ML BAG 100 MEQ IVPB (02:24)
[2018-05-17] MEDS: LORazepam 1 MG TAB PO/SL ×3 (04:15→20:26)
[2018-05-17] MEDS: Normal Saline 1,000 ML 100 ML IV ×3 (04:41→23:46)
[2018-05-17 05:54] LABS: Lipase 84 U/L (73-393)
--- NOTE | 2018-05-17 06:11 | HPE_ITS ---
Date of service: 05/17/18 Time of Service: 06:10 Assessment and Plan (1) Alcohol abuse: Current visit: Yes Status: Chronic Alcohol abuse, with multiple attendant problems the nausea is nonspecific but is likely recurrent gastritis (there is a history of recurrent pancreatitis but lipase is normal today) the various electrolyte abnormalities (potassium, magnesium) are noted and have been addressed. A ketosis is noted, likely so- called starvation ketosis under the circumstances. Also noted is mild sinus tachycardia. This does not seem to be resolving with fluid resuscitation and indeed the blood pressure is actually somewhat elevated so I suspect other factors here. There may may be an element of alcohol withdrawal at play. I also note the patient is listed as taking a beta-j luis and there may be an element of beta-j luis withdrawal as well. In this regard let me note that we have no confirmation at this point that the patient has been taking her medications, or if so when they were last taken. I would advise we hold everything this point until the matter can be sorted out. 1. gastritis: Proton pump inhibitor 2. alcohol withdrawal: Per protocol. 3. sinus tachycardia: We will add beta-j luis, would cover both alcohol withdrawal and beta-j luis withdrawal 4. electrolyte abnormalities: Will monitor 5. ketosis: will monitor History of Present Illness Chief Complaint: nausea Narrative: Patient is a 73-year-old female with history of alcohol abuse and innumerable hospital visits. She came to the emergency room this morning reporting A. Of vomiting after having been drinking up to, she says, 4 days prior to admission. In the emergency room she was noted to have a sinus tachycardia and hypokalemia and hypomagnesemia. She was given IV fluids and electrolyte replacement she was also given Ativan and Zofran. She was admitted for further evaluation and management here on the floor she has had only one episode of minimal vomiting. She has scored once on this alcohol withdrawal protocol and received a dose of Ativan approximately 1 hour prior to this dictation. The patient is unable to add anything to this history as she is sleeping quite soundly. Review of Systems Review of Systems Unobtainable [facility] Family History Mother No problems noted. Father No problems noted. Sister Personal history of malignant neoplasm Sister No problems noted. Grandfather Personal history of malignant neoplasm Grandfather Personal history of malignant neoplasm Grandmother Heart disease Acute ill-defined cerebrovascular disease Grandmother Personal history of malignant neoplasm AUNT Heart disease AUNT Heart disease Brother No problems noted. Medical History Alcohol abuse Depression Essential hypertension Hyperlipidemia Osteoarthritis Sciatica Urinary incontinence Social History Smoking/Tobacco Use Status: Former Tobacco Use Surgical History Bladder Surgery Colonoscopy - MAC (01/28/17) EGD - MAC (12/20/16) Ligation of fallopian tube Repair bladder injury, simple Meds Home Medications Medication Instructions Recorded Confirmed Type cholecalciferol (vitamin D3) 2 tab PO DAILY #100 tab-cap 09/03/16 05/17/18 History cyanocobalamin (vitamin B-12) 1,000 mcg PO DAILY #100 tab-cap 09/03/16 05/17/18 History [Vitamin B-12] fluticasone 1 spr NS daily prn #3 bottle 09/03/16 05/17/18 History gabapentin 2 tab PO BID #360 cap 03/25/17 05/17/18 History Metoprolol Succinate 50 mg PO DAILY #30 tab-cap 11/11/17 05/17/18 Clinic trazodone 100 mg PO hs prn tab-cap 11/18/17 05/17/18 History Allergies Allergy/AdvReac Type Severity Reaction Status Date / Time Penicillins Allergy Mild Rash Unverified 05/17/18 00:43 ramipril Allergy Unknown ITCHING Unverified 05/17/18 00:43 meperidine [From Demerol] AdvReac Severe Nausea Unverified 05/17/18 00:43 bupropion AdvReac Mild GI upset Unverified 05/17/18 00:43 AMBER Inhibitors AdvReac Unknown COUGH Unverified 05/17/18 00:43 alendronate sodium AdvReac Unknown GI Distress Unverified 05/17/18 00:43 clarithromycin AdvReac Unknown intolerant Unverified 05/17/18 00:43 paroxetine AdvReac Unknown Diarrhea Unverified 05/17/18 00:43 Exam Narrative Exam Narrative: Blood pressure 167/84 pulse 126 (at the time of my visit pulses 112) respirations 18 temp 37.2 O2 sat 97% HEENT there are no signs of head trauma neck is supple lungs clear heart tachycardic and regular abdomen soft and nontender pelvic and rectal exams are deferred extremities without edema neurologic patient is sleeping soundly she arouses briefly to loud voice or light touch. Pupils are equal round reactive to light there is no facial asymmetry and she moves all 4 extremities equally Results Labs : 05/17/18 00:56 05/17/18 00:56 Laboratory Results - last 24 hr 05/17/18 05/17/18 05/17/18 00:56 00:56 00:56 WBC 12.48 H RBC 3.71 L Hgb 11.6 L Hct 35.5 L MCV 95.7 H MCH 31.3 MCHC 32.7 RDW 17.9 H Plt Count 213 MPV 10.2 Immature Gran % 0.2 Neutrophils % 94.2 Lymphocytes % 2.3 Monocytes % 3.1 Eosinophils % 0.1 Basophils % 0.1 Absolute Neutrophils 11.76 H Absolute Lymphocytes 0.29 L Absolute Monocytes 0.39 Absolute Eosinophils 0.01 Absolute Basophils 0.01 Sodium 139 Potassium 3.4 L Chloride 95 L Carbon Dioxide 14.5 L Anion Gap 29.5 H BUN 21 H Creatinine 1.20 H Estimated GFR/1.73 m2 44.16 Glucose 261 H Calcium 9.9 Magnesium 1.4 L Total Bilirubin 1.6 H Conjugated Bilirubin 0.33 H AST 39 H ALT 40 Alkaline Phosphatase 149 H Troponin I 0.02 Total Protein 7.5 Albumin 4.0 Lipase 84 Urine Color Urine Clarity Urine pH Ur Specific Mcgregor Urine Protein Urine Ketones Urine Blood Urine Nitrite Urine Bilirubin Urine Urobilinogen Ur Leukocyte Esterase Urine RBC Urine WBC Ur Epithelial Cells Urine Crystals Urine Bacteria Urine Casts Urine Mucus Urine Other Ur Culture Indicated? Urine Glucose Ethyl Alcohol 05/17/18 05/17/18 00:56 01:05 WBC RBC Hgb Hct MCV MCH MCHC RDW Plt Count MPV Immature Gran % Neutrophils % Lymphocytes % Monocytes % Eosinophils % Basophils % Absolute Neutrophils Absolute Lymphocytes Absolute Monocytes Absolute Eosinophils Absolute Basophils Sodium Potassium Chloride Carbon Dioxide Anion Gap BUN Creatinine Estimated GFR/1.73 m2 Glucose Calcium Magnesium Total Bilirubin Conjugated Bilirubin AST ALT Alkaline Phosphatase Troponin I Total Protein Albumin Lipase Urine Color Straw Urine Clarity Clear Urine pH 5.5 Ur Specific Mcgregor 1.025 Urine Protein 100 H Urine Ketones >=160 Urine Blood Negative Urine Nitrite Negative Urine Bilirubin Negative Urine Urobilinogen 0.2 Ur Leukocyte Esterase Negative Urine RBC 0-2 Urine WBC 10-20 Ur Epithelial Cells Few Urine Crystals Negative Urine Bacteria Many Urine Casts 3-5 hyaline Urine Mucus Trace Urine Other Rare transitional Ur Culture Indicated? Yes Urine Glucose 100 Ethyl Alcohol < 3.0
[2018-05-17] MEDS: Pantoprazole 40 MG VIAL IVP (06:59)
[2018-05-17] MEDS: Normal Saline Flush 10 ML SYR 20 ML (06:59)
--- NOTE | 2018-05-17 08:59 | PDOC.CMIN ---
- If Service Date Differs Date of service: 05/17/18 Time of Service: 09:00 Care Management Initial Assess REASON FOR HOSPITALIZATION:: Alcohol abuse PAST MEDICAL HISTORY/PAST SURGICAL HISTORY:: Alcohol abuse, Depression, Essential hypertension, Hyperlipidemia, Osteoarthritis, Sciatica, Urinary incontinence, Bladder surgery, Colonoscopy, EGD-MAC, Ligation of fallopian tube, Repair bladder injury PREVIOUS FUNCTIONAL STATUS/SOCIAL/FAMILY SUPPORTS:: Leticia resides alone in [place]. She has a sister whom resides locally and is supportive. Leticia has two sons both whom reside out of state. Leticia is independent at baseline and is able to drive. CURRENT FUNCTIONAL STATUS:: CM knows Leticia well from previous hospitalizations. Leticia is lying in bed this morning, she falls asleep easily during discussion and it is difficult to hold a conversation. ADVANCE DIRECTIVES:: On file - Clarence Garza (Ex spouse) is agent Has patient been provided with information about the portal?: No Did the patient sign up for the portal?: No CODE STATUS:: Full Code INSURANCE COVERAGE / FINANCIAL ISSUES:: [employer], Financial ASST [employer] CURRENT HOME/COMMUNITY SERVICES/EQUIPMENT:: Currently Leticia has a FWW at home. She has MOW, [facility] case management (Monica Rodriguez), CCC @ [facility] (Vesna Best), Home Health RN/PT services. PRIMARY CARE PHYSICIAN:: Dr. Galindo POTENTIAL DISCHARGE NEEDS:: F/U appointment with PCP. Resumption of home health services PATIENT/FAMILY EDUCATION NEEDS:: Review DC instructions, any limitations, and ongoing DC planning discussion. Discuss Ask Me Three ANTICIPATED BARRIERS TO DISCHARGE:: None identified at this time. TRANSPORTATION:: via private vehicle with sister PLAN:: ? DC plan at this time. Leticia is unable to fully engage in discussion around DC plans today. ? return home with continued home health RN/PT services. Sister to transport. Readmission - Within the Past 30 Days Yes or No: Y - Date of First Admission Date of 1st Admission: 04/12/18 - Date of this Admission Date of Admission: 05/17/18 This admission was: Through ED - Assessment for Readmission Summary of readmission circumstances, based upon interviews: Leticia had difficulty engaging in discussion today as she fell asleep multiple times throughout conversation. CM called and spoke with [facility], whom states that Leticia was at [facility] for two weeks and then returned home as she was ready for DC and her insurance would no longer cover a SNF stay. CM contacted [facility] whom states that RN/PT/DIET SUPERVISOR was ordered at time of DC. Sharri [facility], states that nursing met with Leticia the day prior to admission to [facility] and Leticia spoke of having diarrhea twice a week at that time. Sharri also states that the DIET SUPERVISOR from [facility] met with Leticia once and she declined this service. PT also has been provided to Leticia three times since her DC at [facility]. Per Sharri [facility], Leticia is intoxicated during home health visits. CM spoke with Vesna Best, [facility], whom states that Leticia no longer allows her or COA in her home. Vesna does state that Leticia called [facility] yesterday and spoke with a nurse that she has a good rapport with. As Leticia is sleeping throughout discussion and unable to fully engage CM to meet with her again later in the day to discuss her readmission as well as plans for DC
--- NOTE | 2018-05-17 10:00 | INITIAL_ITS ---
- If Service Date Differs Date of service: 05/17/18 Time of Service: 09:00 Care Management Initial Assess REASON FOR HOSPITALIZATION:: Alcohol abuse PAST MEDICAL HISTORY/PAST SURGICAL HISTORY:: Alcohol abuse, Depression, Essential hypertension, Hyperlipidemia, Osteoarthritis, Sciatica, Urinary incontinence, Bladder surgery, Colonoscopy, EGD-MAC, Ligation of fallopian tube , Repair bladder injury PREVIOUS FUNCTIONAL STATUS/SOCIAL/FAMILY SUPPORTS:: Leticia resides alone in [place]. She has a sister whom resides locally and is supportive. Leticia has two sons both whom reside out of state. Leticia is independent at baseline and is able to drive. CURRENT FUNCTIONAL STATUS:: CM knows Leticia well from previous hospitalizations. Leticia is lying in bed this morning, she falls asleep easily during discussion and it is difficult to hold a conversation. ADVANCE DIRECTIVES:: On file - Clarence Garza (Ex spouse) is agent Has patient been provided with information about the portal?: No Did the patient sign up for the portal?: No CODE STATUS:: Full Code INSURANCE COVERAGE / FINANCIAL ISSUES:: [employer], Financial ASST 70 CURRENT HOME/COMMUNITY SERVICES/EQUIPMENT:: Currently Leticia has a FWW at home. She has MOW, COA case management (Monica Rodriguez), CCC @ [facility] (Vesna Best), Home Health RN/PT services. PRIMARY CARE PHYSICIAN:: Dr. Galindo POTENTIAL DISCHARGE NEEDS:: F/U appointment with PCP. Resumption of home health services PATIENT/FAMILY EDUCATION NEEDS:: Review DC instructions, any limitations, and ongoing DC planning discussion. Discuss Ask Me Three ANTICIPATED BARRIERS TO DISCHARGE:: None identified at this time. TRANSPORTATION:: via private vehicle with sister PLAN:: ? DC plan at this time. Leticia is unable to fully engage in discussion around DC plans today. ? return home with continued home health RN/PT services. Sister to transport. Readmission - Within the Past 30 Days Yes or No: Y - Date of First Admission Date of 1st Admission: 04/12/18 - Date of this Admission Date of Admission: 05/17/18 This admission was: Through ED - Assessment for Readmission Summary of readmission circumstances, based upon interviews: Leticia had difficulty engaging in discussion today as she fell asleep multiple times throughout conversation. CM called and spoke with [facility], whom states that [facility]icia was at [facility] and then returned home as she was ready for DC and her insurance would no longer cover a SNF stay. CM contacted [facility] whom states that RN/PT/STONE AND CONCRETE WASHER was ordered at time of DC. Sharri [facility], states that nursing met with Leticia the day prior to admission to [facility] and Leticia spoke of having diarrhea twice a week at that time. Sharri also states that the STONE AND CONCRETE WASHER from [facility] met with Leticia once and she declined this service. PT also has been provided to Leticia three times since her DC at [facility]. Per Sharri [facility], Leticia is intoxicated during home health visits. CM spoke with Vesna Best, [facility], whom states that Leticia no longer allows her or COA in her home. Vesna does state that Leticia called [facility] yesterday and spoke with a nurse that she has a good rapport with. As Leticia is sleeping throughout discussion and unable to fully engage CM to meet with her again later in the day to discuss her readmission as well as plans for DC
[2018-05-17] MEDS: Metoprolol 5 MG/5 ML VIAL 2.5 MG IVP ×3 (12:19→23:43)
[2018-05-17] MEDS: Normal Saline Flush 10 ML SYR (12:21)
--- NOTE | 2018-05-17 16:35 | PGE_ITS ---
Date of service: 05/17/18 Time of Service: 16:35 Objective Objective Clinical Data: Abnormal lab results 05/17/18 05/17/18 05/17/18 Range/Units 00:56 00:56 01:05 WBC 12.48 H (4.4-10.8) k/cumm RBC 3.71 L (4.00-5.20) m/cumm Hgb 11.6 L (12.0-15.5) g/dL Hct 35.5 L (36.0-46.0) % MCV 95.7 H (80-95) fL RDW 17.9 H (11.7-14.6) % Absolute Neutrophils 11.76 H (1.2-6.7) k/cumm Absolute Lymphocytes 0.29 L (1.2-3.4) k/cumm Potassium 3.4 L (3.5-5.1) mmol/L Chloride 95 L (98-107) mmol/L Carbon Dioxide 14.5 L (21.0-32.0) mmol/L Anion Gap 29.5 H (3-11) mmol/L BUN 21 H (7-18) mg/dL Creatinine 1.20 H (0.55-1.02) mg/dL Glucose 261 H (70-100) mg/dL Magnesium 1.4 L (1.8-2.4) mg/dL Total Bilirubin 1.6 H (0.2-1.0) mg/dL Conjugated Bilirubin 0.33 H (0.00-0.20) mg/dL AST 39 H (15-37) U/L Alkaline Phosphatase 149 H (46-116) U/L Urine Protein 100 H (Negative) mg/dL Vital Signs Temp 37.1 C 05/17/18 16:05 Pulse 106 H 05/17/18 16:05 Resp 18 05/17/18 16:05 BP 153/92 H 05/17/18 16:05 Pulse Ox 94 L 05/17/18 16:05 Intake & Output 05/16/18 05/17/18 05/17/18 23:59 11:59 23:59 Intake Total 2200 1418.667 / 1418.667 Balance 2200 1418.667 / 1418.667 Weight 58.7 kg Intake: IV 2200 968.667 / 968.667 Oral 450 / 450 Other: Comment incontinent in brief Voiding Methods Diaper Diaper Incontinent Incontinent Laboratory Results WBC 12.48 k/cumm (4.4-10.8) H 05/17/18 00:56 RBC 3.71 m/cumm (4.00-5.20) L 05/17/18 00:56 Hgb 11.6 g/dL (12.0-15.5) L 05/17/18 00:56 Hct 35.5 % (36.0-46.0) L 05/17/18 00:56 MCV 95.7 fL (80-95) H 05/17/18 00:56 MCH 31.3 pg (27.0-33.0) 05/17/18 00:56 MCHC 32.7 g/dL (32.0-36.0) 05/17/18 00:56 RDW 17.9 % (11.7-14.6) H 05/17/18 00:56 Plt Count 213 x1000/uL (130-400) 05/17/18 00:56 MPV 10.2 fL (8.0-11.0) 05/17/18 00:56 Immature Gran % 0.2 05/17/18 00:56 Neutrophils % 94.2 05/17/18 00:56 Lymphocytes % 2.3 05/17/18 00:56 Monocytes % 3.1 05/17/18 00:56 Eosinophils % 0.1 05/17/18 00:56 Basophils % 0.1 05/17/18 00:56 Absolute Neutrophils 11.76 k/cumm (1.2-6.7) H 05/17/18 00:56 Absolute Lymphocytes 0.29 k/cumm (1.2-3.4) L 05/17/18 00:56 Absolute Monocytes 0.39 k/cumm (0.11-0.7) 05/17/18 00:56 Absolute Eosinophils 0.01 k/cumm (0.0-0.7) 05/17/18 00:56 Absolute Basophils 0.01 k/cumm (0.0-0.2) 05/17/18 00:56 Sodium 139 mmol/L (136-145) 09/19/18 00:56 Potassium 3.4 mmol/L (3.5-5.1) L 05/17/18 00:56 Chloride 95 mmol/L (98-107) L 05/17/18 00:56 Carbon Dioxide 14.5 mmol/L (21.0-32.0) L 05/17/18 00:56 Anion Gap 29.5 mmol/L (3-11) H 05/17/18 00:56 BUN 21 mg/dL (7-18) H 05/17/18 00:56 Creatinine 1.20 mg/dL (0.55-1.02) H 05/17/18 00:56 Estimated GFR/1.73 m2 44.16 (mL/min/1.73m2) 05/17/18 00:56 Glucose 261 mg/dL (70-100) H 05/17/18 00:56 Calcium 9.9 mg/dL (8.5-10.1) 05/17/18 00:56 Magnesium 1.4 mg/dL (1.8-2.4) L 05/17/18 00:56 Total Bilirubin 1.6 mg/dL (0.2-1.0) H 05/17/18 00:56 Conjugated Bilirubin 0.33 mg/dL (0.00-0.20) H 05/17/18 00:56 AST 39 U/L (15-37) H 05/17/18 00:56 ALT 40 U/L (12-78) 05/17/18 00:56 Alkaline Phosphatase 149 U/L (46-116) H 05/17/18 00:56 Troponin I 0.02 ng/mL (0.00-0.06) 05/17/18 00:56 Total Protein 7.5 g/dL (6.4-8.2) 05/17/18 00:56 Albumin 4.0 g/dL (3.4-5.0) 05/17/18 00:56 Lipase 84 U/L (73-393) 05/17/18 00:56 Urine Color Straw (Yellow) 05/17/18 01:05 Urine Clarity Clear 05/17/18 01:05 Urine pH 5.5 (5-8) 05/17/18 01:05 Ur Specific [place] 1.025 (1.005-1.025) 05/17/18 01:05 Urine Protein 100 mg/dL (Negative) H 05/17/18 01:05 Urine Ketones >=160 mg/dL (Negative) 05/17/18 01:05 Urine Blood Negative (Negative) 05/17/18 01:05 Urine Nitrite Negative (Negative) 05/17/18 01:05 Urine Bilirubin Negative (Negative) 05/17/18 01:05 Urine Urobilinogen 0.2 EU/dL (Up TO 0.2) 05/17/18 01:05 Ur Leukocyte Esterase Negative (Negative) 05/17/18 01:05 Urine RBC 0-2 (0-2) 05/17/18 01:05 Urine WBC 10-20 HPF (0-5) 05/17/18 01:05 Ur Epithelial Cells Few HPF (Negative) 05/17/18 01:05 Urine Crystals Negative HPF (Negative) 05/17/18 01:05 Urine Bacteria Many HPF (Negative) 05/17/18 01:05 Urine Casts 3-5 hyaline LPF (Negative) 05/17/18 01:05 Urine Mucus Trace (Negative) 05/17/18 01:05 Urine Other Rare transitional (Negative) 05/17/18 01:05 Ur Culture Indicated? Yes 05/17/18 01:05 Urine Glucose 100 mg/dL (Negative) 05/17/18 01:05 Ethyl Alcohol < 3.0 mg/dL (<3) 05/17/18 00:56
[2018-05-17] MEDS: Normal Saline Flush 10 ML SYR IVP (18:04)
[2018-05-18] VITALS (8 sets, daily range): BP systolic 152–181; BP diastolic 93–122; PULSE 84–100; RESP 16–19; TEMP 36.3–36.9; O2SAT 93–97
[2018-05-18] MEDS: Metoprolol 5 MG/5 ML VIAL 2.5 MG IVP (06:20)
[2018-05-18] MEDS: Pantoprazole 40 MG VIAL IVP (06:24)
[2018-05-18 07:30] LABS: Anion Gap 7.5 mmol/L (3-11); BUN 8 mg/dL (7-18); CO2 28.5 mmol/L (21.0-32.0); CREATININE 0.82 mg/dL (0.55-1.02); Calcium 8.5 mg/dL (8.5-10.1); Chloride 105 mmol/L (98-107); Glucose 113 mg/dL (70-100); Sodium 141 mmol/L (136-145)
[2018-05-18 07:31] LABS: Potassium 2.9 mmol/L (3.5-5.1)
[2018-05-18] MEDS: LORazepam 1 MG TAB PO/SL (08:00)
--- NOTE | 2018-05-18 09:55 | PDOC.CMPRO ---
Care Management Progress Note S/O: Leticia was reviewed during interdisciplinary rounds; she continues to score on the CIWA scale and is being medically managed for acute alcohol withdrawal. CM will continue to attempt to connect with Leticia regarding DC planning. A: 73 year old female admitted to [facility] 05/17/18 for Acute Alcohol Withdrawal, Alcoholic Ketoacidosis P: Leticia will return home, resume current supports [facility] RN/PT and follow up with her PCP. She will transport via [facility]. Please refer to re-admission for explanation of lack of follow through with coordinated services resulting in barriers to care and re-admission issues.
[2018-05-18] MEDS: Folic Acid 1 MG TAB PO (10:07)
[2018-05-18] MEDS: Thiamine 100 MG TAB PO (10:07)
[2018-05-18] MEDS: Metoprolol CR 50 MG TABCR PO (10:07)
[2018-05-18] MEDS: Acetaminophen 325 MG TAB 650 MG PO (10:07)
[2018-05-18] MEDS: Multivitamin TAB 1 TAB PO (10:07)
[2018-05-18] MEDS: Normal Saline 1,000 ML 100 ML IV ×2 (10:09→22:12)
--- NOTE | 2018-05-18 14:30 | PHARADMIT ---
Addendum entered by Pedro Hercules III 05/22/18 12:35: Pharmacy Note Subjective Patient had some BP and kidney issues overnight (BP-162/11 SCr-1.43). Objective VS-OK K+4.5 CIWA scale dc'd Had BM Assessment Watch BP and SCr. Bactrim dc'd, Losartan dc'd Plan MD wants patient to remain another 24 hrs to make sure BP & kidney issues have resolved. Original Note: Addendum entered by Licha Atkinson 05/21/18 11:05: Pharmacy Note Subjective Objective BP-154/95 other VS okay Na-135 mag-1.6 SCr-1.14(up) Assessment amlodipine ordered today, spironolactone dose increased yesterday to BID then decreased back to daily today, IV magnesium given today, lorazapam for CIWA discontinued day 3 bactrim Plan watch to see if SCr decreases tomorrow, watch VS Original Note: Admission Pharmacy Clinical Review ACUTE ALCOHOL WITHDRAWAL, ALCOHOLIC KETOACIDOSIS Code Status Full Code Current Weight 58.7 kg Renally Cleared and Narrow Therapeutic Index Meds CRCL ~47ML/MIN QTc Value / Action Taken BP Control, Fever 175/122 AFEBRILE Electrolytes reviewed K 2.9, mag 1.4 (mag bolus and KCL IV) DVT Prophylaxis no, will ask MD Opiate Usage / Scheduled Bowel Regimen Ordered no/no Plt/SCr for Heparin / Enoxaparin 213/0.82 INR for Warfarin na H/H stable, WBC/Bands 11.6/35.5 wbc 12.48 Antibiotic appropriateness na Cultures and Sensitivities na Surgical ABX d/c within 24 hr na DM control / Insulin Dosing na Heart Failure (Check EF%) (AMBER's, B-Block, Diuretics) IV to PO Switch Home Meds Reviewed Home Meds Not Ordered cholecalciferol (vitamin D3) 2 tab PO DAILY #100 tab-cap 09/03/16 cyanocobalamin (vitamin B-12) [Vitamin B-12] 1,000 mcg PO DAILY #100 fluticasone 1 spr NS daily prn #3 bottle 09/03/16 loperamide 2 mg PO QLOOSE PRN #30 cap 12/23/16 [Rx Confirmed 05/17/18] gabapentin 2 tab PO BID #360 cap 03/25/17 [History Confirmed 05/17/18] magnesium oxide 400 mg PO BID #180 tab-cap 06/28/17 ranitidine HCl 150 mg PO HS #30 tab-cap 10/21/17 [Rx Confirmed 05/17/18] naltrexone 50 mg PO DAILY #30 tab-cap 11/04/17 [Rx Confirmed 05/17/18] pyridoxine (vitamin B6) [Vitamin B-6] 50 mg PO nightly #60 cap venlafaxine 37.5 mg PO DAILY #90 tab-cap 11/04/17 [Rx Confirmed 05/17/18] venlafaxine 150 mg PO DAILY #90 tab-cap 11/04/17 [Rx Confirmed 05/17/18] trazodone 100 mg PO hs prn tab-cap 11/18/17 [History Confirmed 05/17/18] ondansetron HCl 4 mg PO Q6H PRN PRN #15 tab-cap 12/21/17 losartan 100 mg PO DAILY #30 tab 02/20/18 [Rx Confirmed 05/17/18] potassium chloride 20 meq PO BID #180 tab-cap 03/30/18 polyethylene glycol 3350 17 gm PO DAILY PRN PRN packet 04/17/18 spironolactone 25 mg PO DAILY tab 04/17/18 [Rx Confirmed 05/17/18] tramadol 50 mg PO Q6H PRN PRN tab 04/17/18 [Rx Confirmed 05/17/18 Comments
--- NOTE | 2018-05-18 15:38 | CMPROGNOTE_ITS ---
Care Management Progress Note S/O: Leticia was reviewed during interdisciplinary rounds; she continues to score on the CIWA scale and is being medically managed for acute alcohol withdrawal. CM will continue to attempt to connect with Leticia regarding DC planning. A: 73 year old female admitted to [facility] 05/17/18 for Acute Alcohol Withdrawal, Alcoholic Ketoacidosis P: Leticia will return home, resume current supports [facility] RN/PT and follow up with her PCP. She will transport via [facility]. Please refer to re-admission for explanation of lack of follow through with coordinated services resulting in barriers to care and re-admission issues.
[2018-05-18] MEDS: Normal Saline Flush 10 ML SYR IVP ×2 (16:50→23:27)
--- NOTE | 2018-05-18 16:52 | PGE_ITS ---
Date of service: 05/18/18 Time of Service: 16:48 Assessment and Plan (1) Alcohol withdrawal: Current visit: Yes Status: Acute cont. CIWA monitoring and give ativan per CIWA scoring. She may benefit from programmed doses of Serax however at present she is too lethargic to require this. (2) Hypertension: Current visit: No Status: Chronic bp have been high. She has been getting metoprolol iv until today; she is now back on Toprol XL but I have resumed her losartan and her spironolactone beginning tomorrow. HOwever I will give her a dose of losartan tonight and write for prn labetalol if her bp becomes elevated. (3) Alcohol dependence: Current visit: No Status: Acute patient has high rescidivism w/ recurrent admissions for alcohol withdrawal. unfortunately she does not allow the staff to set her up in a more stable living situation to allow for continued abstinence (4) Dehydration: Current visit: No Status: Acute continue iv fluid hydration. I will give her D5LR w/ potassium (5) Hypokalemia: Current visit: No Status: Acute will give couple of doses of iv potassium and recheck her labs tonight (6) Hypomagnesemia: Current visit: No Status: Acute will give her repeat bolus of magnesium and repeat her levels Subjective Interval history since last seen: Patient was admitted yesterday by Dr. 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 She was found to have hypokalemia and hypomagnesemia. She was given parenteral magnesium and potassium and remains low today. She was lethargic on admission and could not contribute much to her history and again she is lethargic this afternoon but arouseable. Her last dose of Ativan was given at 8 a.m. and she was given 2 mg. Her CIWA scores have been 4 to 8, however, they have not been able to medicate her d/t lethargy. However her blood pressure remains elevated d/t not getting her oral medications on admission. Her Toprol was restarted this a.m. I have reordered all of her home medications including her losartan, and her spironolactone. As for her potassium and magnesium they remain low and I have ordered iv replacements for this afternoon. Exam Const General: disheveled, ill appearing chronically and lethargic Orientation: oriented to person and confused Limitations: altered mental status Resp Effort & Inspection: normal respiratory effort and able to speak in complete sentences Auscultation: clear to auscultation bilaterally Cardio Jugular venous pressure: no JVD Palpation: normal PMI Rate: regular rate Rhythm: regular rhythm Heart Sounds: normal, physiologic split S2 GI Inspection: normal to inspection and non-distended Palpation: soft and tender in the epigastrum Percussion: normal to percussion Neuro General: confused Cranial Nerves: EOM intact bilaterally and no nystagmus Cognition: abnormal cognition Speech: speech normal Motor: muscle tone normal throughout and strength 5/5 throughout Sensory Exam: no sensory deficits noted Extrem General: normal to inspection, full ROM, no pedal edema and no cyanosis Psych Appearance: disheveled Speech and Movement: speech and movement normal Mood: paranoid Affect: dysphoric affect Attitude: guarded Thought Content: hallucinations (she thinks that she has mice in her bed) Insight: poor Judgment: poor Objective Objective Clinical Data: Abnormal lab results 05/18/18 Range/Units 06:15 Potassium 2.9 L* (3.5-5.1) mmol/L Glucose 113 H D (70-100) mg/dL Vital Signs Temp 36.3 C L 05/18/18 16:11 Pulse 96 H 05/18/18 16:11 Resp 16 05/18/18 16:11 BP 179/107 H 05/18/18 16:11 Pulse Ox 96 05/18/18 16:11 Intake & Output 05/17/18 05/18/18 05/18/18 23:59 11:59 23:59 Intake Total 2978.667 / 2978.667 1375 / 1375 485 / 485 Balance 2978.667 / 2978.667 1375 / 1375 485 / 485 Intake: IV 1928.667 / 1392.234 6091 / 1000 485 / 485 Oral 1050 / 1050 375 / 375 Other: Urine Color Yellow Urine Appearance Clear Clear Urine Odor Normal Voiding Methods Diaper Diaper Diaper Incontinent Incontinent Incontinent Laboratory Results WBC 12.48 k/cumm (4.4-10.8) H 05/17/18 00:56 RBC 3.71 m/cumm (4.00-5.20) L 05/17/18 00:56 Hgb 11.6 g/dL (12.0-15.5) L 05/17/18 00:56 Hct 35.5 % (36.0-46.0) L 05/17/18 00:56 MCV 95.7 fL (80-95) H 05/17/18 00:56 MCH 31.3 pg (27.0-33.0) 05/17/18 00:56 MCHC 32.7 g/dL (32.0-36.0) 05/17/18 00:56 RDW 17.9 % (11.7-14.6) H 05/17/18 00:56 Plt Count 213 x1000/uL (130-400) 05/17/18 00:56 MPV 10.2 fL (8.0-11.0) 05/17/18 00:56 Immature Gran % 0.2 05/17/18 00:56 Neutrophils % 94.2 05/17/18 00:56 Lymphocytes % 2.3 05/17/18 00:56 Monocytes % 3.1 05/17/18 00:56 Eosinophils % 0.1 05/17/18 00:56 Basophils % 0.1 05/17/18 00:56 Absolute Neutrophils 11.76 k/cumm (1.2-6.7) H 05/17/18 00:56 Absolute Lymphocytes 0.29 k/cumm (1.2-3.4) L 05/17/18 00:56 Absolute Monocytes 0.39 k/cumm (0.11-0.7) 05/17/18 00:56 Absolute Eosinophils 0.01 k/cumm (0.0-0.7) 05/17/18 00:56 Absolute Basophils 0.01 k/cumm (0.0-0.2) 05/17/18 00:56 Sodium 141 mmol/L (136-145) 05/18/18 06:15 Potassium 2.9 mmol/L (3.5-5.1) L* 05/18/18 06:15 Chloride 105 mmol/L (98-107) 05/18/18 06:15 Carbon Dioxide 28.5 mmol/L (21.0-32.0) 05/18/18 06:15 Anion Gap 7.5 mmol/L (3-11) 05/18/18 06:15 BUN 8 mg/dL (7-18) D 05/18/18 06:15 Creatinine 0.82 mg/dL (0.55-1.02) 05/18/18 06:15 Estimated GFR/1.73 m2 >= 60.00 (mL/min/1.73m2) 05/18/18 06:15 Glucose 113 mg/dL (70-100) H D 05/18/18 06:15 Calcium 8.5 mg/dL (8.5-10.1) 05/18/18 06:15 Magnesium 1.4 mg/dL (1.8-2.4) L 05/17/18 00:56 Total Bilirubin 1.6 mg/dL (0.2-1.0) H 05/17/18 00:56 Conjugated Bilirubin 0.33 mg/dL (0.00-0.20) H 05/17/18 00:56 AST 39 U/L (15-37) H 05/17/18 00:56 ALT 40 U/L (12-78) 05/17/18 00:56 Alkaline Phosphatase 149 U/L (46-116) H 05/17/18 00:56 Troponin I 0.02 ng/mL (0.00-0.06) 05/17/18 00:56 Total Protein 7.5 g/dL (6.4-8.2) 05/17/18 00:56 Albumin 4.0 g/dL (3.4-5.0) 05/17/18 00:56 Lipase 84 U/L (73-393) 05/17/18 00:56 Urine Color Straw (Yellow) 05/17/18 01:05 Urine Clarity Clear 05/17/18 01:05 Urine pH 5.5 (5-8) 05/17/18 01:05 Ur Specific [place] 1.025 (1.005-1.025) 05/17/18 01:05 Urine Protein 100 mg/dL (Negative) H 05/17/18 01:05 Urine Ketones >=160 mg/dL (Negative) 05/17/18 01:05 Urine Blood Negative (Negative) 05/17/18 01:05 Urine Nitrite Negative (Negative) 05/17/18 01:05 Urine Bilirubin Negative (Negative) 05/17/18 01:05 Urine Urobilinogen 0.2 EU/dL (Up TO 0.2) 05/17/18 01:05 Ur Leukocyte Esterase Negative (Negative) 05/17/18 01:05 Urine RBC 0-2 (0-2) 05/17/18 01:05 Urine WBC 10-20 HPF (0-5) 05/17/18 01:05 Ur Epithelial Cells Few HPF (Negative) 05/17/18 01:05 Urine Crystals Negative HPF (Negative) 05/17/18 01:05 Urine Bacteria Many HPF (Negative) 05/17/18 01:05 Urine Casts 3-5 hyaline LPF (Negative) 05/17/18 01:05 Urine Mucus Trace (Negative) 05/17/18 01:05 Urine Other Rare transitional (Negative) 05/17/18 01:05 Ur Culture Indicated? Yes 05/17/18 01:05 Urine Glucose 100 mg/dL (Negative) 05/17/18 01:05 Ethyl Alcohol < 3.0 mg/dL (<3) 05/17/18 00:56
[2018-05-18] MEDS: POTASSIUM CHLORIDE 20 MEQ/100 ML BAG 50 MEQ IVPB ×2 (17:20→19:58)
[2018-05-18] MEDS: Potassium Chloride 20 MEQ TABCR PO (18:04)
[2018-05-18] MEDS: Magnesium Oxide 400 MG TAB PO (19:57)
[2018-05-18] MEDS: Pantoprazole 40 MG TABCR PO (19:57)
[2018-05-18] MEDS: Gabapentin 100 MG CAP 200 MG PO (19:58)
[2018-05-18 22:38] LABS: Anion Gap 8.5 mmol/L (3-11); BUN 4 mg/dL (7-18); CO2 26.5 mmol/L (21.0-32.0); CREATININE 0.84 mg/dL (0.55-1.02); Calcium 8.8 mg/dL (8.5-10.1); Chloride 101 mmol/L (98-107); Glucose 116 mg/dL (70-100); Potassium 3.5 mmol/L (3.5-5.1); Sodium 136 mmol/L (136-145)
[2018-05-19] VITALS (8 sets, daily range): BP systolic 145–174; BP diastolic 72–101; PULSE 81–98; RESP 16–18; TEMP 36.2–37.3; O2SAT 96–98
[2018-05-19 07:40] LABS: Magnesium 1.3 mg/dL (1.8-2.4)
[2018-05-19] MEDS: Cyanocobalamin 500 MCG TAB 1000 MCG PO (08:26)
[2018-05-19] MEDS: Pantoprazole 40 MG TABCR PO ×2 (08:28→20:30)
[2018-05-19] MEDS: Losartan 50 MG TAB 100 MG PO (08:29)
[2018-05-19] MEDS: Magnesium Oxide 400 MG TAB PO ×2 (08:29→20:28)
[2018-05-19] MEDS: Metoprolol CR 50 MG TABCR PO (08:30)
[2018-05-19] MEDS: Acetaminophen 325 MG TAB 650 MG PO (08:34)
[2018-05-19] MEDS: Gabapentin 100 MG CAP 200 MG PO ×2 (08:35→20:30)
[2018-05-19] MEDS: Normal Saline 1,000 ML 100 ML IV ×2 (08:36→22:21)
[2018-05-19] MEDS: Potassium Chloride 20 MEQ TABCR PO ×2 (08:37→20:28)
[2018-05-19] MEDS: Venlafaxine 150 MG CAPCR PO (08:38)
[2018-05-19] MEDS: LORazepam 1 MG TAB PO/SL (08:45)
[2018-05-19] MEDS: Spironolactone 25 MG TAB PO ×2 (08:46→16:20)
[2018-05-19] MEDS: Naltrexone 50 MG TAB PO (08:46)
[2018-05-19] MEDS: Folic Acid 1 MG TAB PO (08:47)
[2018-05-19] MEDS: Multivitamin TAB 1 TAB PO (08:47)
[2018-05-19] MEDS: Thiamine 100 MG TAB PO (08:47)
[2018-05-19] MEDS: MAGNESIUM SULFATE 2 GM/50 ML BAG IVPB ×2 (08:48→16:20)
[2018-05-19 08:51] LABS: Anion Gap 8.4 mmol/L (3-11); BUN 4 mg/dL (7-18); CO2 26.6 mmol/L (21.0-32.0); CREATININE 0.93 mg/dL (0.55-1.02); Calcium 9.1 mg/dL (8.5-10.1); Chloride 104 mmol/L (98-107); Estimated GFR 59.26 (mL/min/1.73m2); Glucose 119 mg/dL (70-100); Potassium 3.1 mmol/L (3.5-5.1); Sodium 139 mmol/L (136-145)
[2018-05-19] MEDS: Sulfameth/Trimeth DS TAB 1 TAB PO ×2 (10:46→20:31)
--- NOTE | 2018-05-19 12:39 | CMPROGNOTE_ITS ---
- If Service Date Differs Date of service: 05/19/18 Time of Service: 12:37 Care Management Progress Note S/O: Leticia is lying in bed when this global technical writer visits this morning, her room is darkened, and she responds to verbal stimuli. CM [facility] Let[facility] with her, and Leticia states that she does not want to go anywhere but home at time of DC. CM discussed home services currently in place, Leticia states that she would like to have home health continue at time of DC. A: 73 year old female admitted to [facility] 05/17/18 for Acute Alcohol Withdrawal, Alcoholic Ketoacidosis P: Leticia will return home, resume current supports [facility] RN/PT and follow up with her PCP. She will transport via [facility]. Please refer to re-admission for explanation of lack of follow through with coordinated services resulting in barriers to care and re-admission issues.
--- NOTE | 2018-05-19 14:29 | NUR.NOTE ---
Nursing Note: 1425: pt's son called and requested RN remain in room while talking to pt. pt's son Bennie is calling to discuss her sick dog, Khushbu, and what should happen with her. pt agrees, while on the phone with the son that the dog should be put down by Dr. Coughlin as she has bladder cancer and is not well. pt states 3 times just put her down. RN confirms with pt while Bennie is still on the phone that pt does want dog put down. pt confirms this and states yes put her down.
--- NOTE | 2018-05-19 15:01 | PGE_ITS ---
Date of service: 05/19/18 Time of Service: 15:01 Assessment and Plan (1) Alcohol withdrawal: Current visit: Yes Status: Acute CIWA scores have been declining. She is only been medicated with Lorazepam once this morning for score of 9. (2) Hypertension: Current visit: No Status: Chronic poorly controlled. She is currently on Toprol XL and losartan 100 mg daily and spironolactone 25 daily. Given her recurrent hypokalemia, I think she would do better on higher dose of spironolactone. I am also going to switch her toprol XL to carvedilol 6.25 mg BID but this dose may need uptitration. However a combination of beta/alpha j luis would give better bp control than pure beta j luis. She has labetalol 20 mg ivp prn ordered but only for severe elevation over 190 mm. (3) Alcohol dependence: Current visit: No Status: Acute patient has high rescidivism w/ recurrent admissions for alcohol withdrawal. unfortunately she does not allow the staff to set her up in a more stable living situation to allow for continued abstinence (4) Dehydration: Current visit: No Status: Resolved iv fluids have been discontinued (5) Hypokalemia: Current visit: No Status: Acute an ongoing problem for her. I have ordered couple more iv doses of potassium 20 meq each and added additional oral supplementation. With the increase in her spironolactone hopefully her K+ will improve. However we also need to correct her hypomagnesemia. (6) Hypomagnesemia: Current visit: No Status: Acute will give her repeat bolus of magnesium and continue oral supplementation and recheck her levels Subjective Interval history since last seen: Patient is much more oriented today. She is answering questions appropriately. Her CIWA scores have come down this afternoon to 3. Her highest score was in 9 this morning. She scored this based on she was disoriented in terms of the date this morning by being off by 2 days and she had some mild nausea and mild headache along with mild light sensitivity. However Julia is always sensitive to light and if allowed to will insist on keeping the curtains drawn and the lights off. I think at this point she is coming out of danger zone for delirium tremens. She is not having any hallucinations. I think by tomorrow she should be ready for discharge from the hospital. According to the director of healthcare systems's note the patient's son Bennie called to inform his mother that her dog is ill with bladder bladder cancer and needs to be put down. Leticia did not share this with me when I visited her this afternoon. According to the director of healthcare systems and plans for her to return home with her current supports for community home health including nursing and physical therapy visits. Julia is being treated for Klebsiella UTI for which I just started on Bactrim this morning. She will need a 7 day course of antibiotics upon discharge from the hospital. Exam Narrative Exam Narrative: Patient is withdrawn with the covers pulled over her. She reluctantly answers my questions but avoids eye contact. Her answers seem to be appropriate with no slurring of her speech. She has no tremors in her hands and no sweating. Her lungs are clear to auscultation her heart is regular without appreciable murmur rub or gallop. Abdomen is soft and nontender. Objective Objective Clinical Data: Abnormal lab results 05/17/18 05/18/18 05/19/18 Range/Units 01:05 22:14 06:35 Potassium 3.1 L (3.5-5.1) mmol/L BUN 4 L 4 L (7-18) mg/dL Glucose 116 H 119 H (70-100) mg/dL Magnesium 1.3 L (1.8-2.4) mg/dL Urine Protein 100 H (Negative) mg/dL Vital Signs Temp 36.6 C 05/19/18 10:47 Pulse 98 H 05/19/18 14:24 Resp 17 05/19/18 10:47 BP 170/101 H 05/19/18 10:47 Pulse Ox 97 05/19/18 10:47 Intake & Output 05/18/18 05/19/18 05/19/18 23:59 11:59 23:59 Intake Total 1260 / 1260 1560 / 1560 360 / 360 Balance 1260 / 1260 1560 / 1560 360 / 360 Intake: IV 1020 / 1020 1000 / 1000 Oral 240 / 240 560 / 560 360 / 360 Other: Urine Color Yellow Urine Odor Normal Comment Incontinent of a large amount of urine x1 in the briefs. Briefs and gown were changed. Stool Size Moderate Stool Characteristics Liquid Voiding Methods Diaper Diaper Diaper Incontinent Incontinent Incontinent Laboratory Results WBC 12.48 k/cumm (4.4-10.8) H 05/17/18 00:56 RBC 3.71 m/cumm (4.00-5.20) L 05/17/18 00:56 Hgb 11.6 g/dL (12.0-15.5) L 05/17/18 00:56 Hct 35.5 % (36.0-46.0) L 05/17/18 00:56 MCV 95.7 fL (80-95) H 05/17/18 00:56 MCH 31.3 pg (27.0-33.0) 05/17/18 00:56 MCHC 32.7 g/dL (32.0-36.0) 05/17/18 00:56 RDW 17.9 % (11.7-14.6) H 05/17/18 00:56 Plt Count 213 x1000/uL (130-400) 05/17/18 00:56 MPV 10.2 fL (8.0-11.0) 05/17/18 00:56 Immature Gran % 0.2 05/17/18 00:56 Neutrophils % 94.2 05/17/18 00:56 Lymphocytes % 2.3 05/17/18 00:56 Monocytes % 3.1 05/17/18 00:56 Eosinophils % 0.1 05/17/18 00:56 Basophils % 0.1 05/17/18 00:56 Absolute Neutrophils 11.76 k/cumm (1.2-6.7) H 05/17/18 00:56 Absolute Lymphocytes 0.29 k/cumm (1.2-3.4) L 05/17/18 00:56 Absolute Monocytes 0.39 k/cumm (0.11-0.7) 05/17/18 00:56 Absolute Eosinophils 0.01 k/cumm (0.0-0.7) 05/17/18 00:56 Absolute Basophils 0.01 k/cumm (0.0-0.2) 05/17/18 00:56 Sodium 139 mmol/L (136-145) 05/19/18 06:35 Potassium 3.1 mmol/L (3.5-5.1) L 05/19/18 06:35 Chloride 104 mmol/L (98-107) 05/19/18 06:35 Carbon Dioxide 26.6 mmol/L (21.0-32.0) 05/19/18 06:35 Anion Gap 8.4 mmol/L (3-11) 05/19/18 06:35 BUN 4 mg/dL (7-18) L 05/19/18 06:35 Creatinine 0.93 mg/dL (0.55-1.02) 05/19/18 06:35 Estimated GFR/1.73 m2 59.26 (mL/min/1.73m2) 05/19/18 06:35 Glucose 119 mg/dL (70-100) H 05/19/18 06:35 Calcium 9.1 mg/dL (8.5-10.1) 05/19/18 06:35 Magnesium 1.3 mg/dL (1.8-2.4) L 05/19/18 06:35 Total Bilirubin 1.6 mg/dL (0.2-1.0) H 05/17/18 00:56 Conjugated Bilirubin 0.33 mg/dL (0.00-0.20) H 05/17/18 00:56 AST 39 U/L (15-37) H 05/17/18 00:56 ALT 40 U/L (12-78) 05/17/18 00:56 Alkaline Phosphatase 149 U/L (46-116) H 05/17/18 00:56 Troponin I 0.02 ng/mL (0.00-0.06) 05/17/18 00:56 Total Protein 7.5 g/dL (6.4-8.2) 05/17/18 00:56 Albumin 4.0 g/dL (3.4-5.0) 05/17/18 00:56 Lipase 84 U/L (73-393) 05/17/18 00:56 Urine Color Straw (Yellow) 05/17/18 01:05 Urine Clarity Clear 05/17/18 01:05 Urine pH 5.5 (5-8) 05/17/18 01:05 Ur Specific [place] 1.025 (1.005-1.025) 05/17/18 01:05 Urine Protein 100 mg/dL (Negative) H 05/17/18 01:05 Urine Ketones >=160 mg/dL (Negative) 05/17/18 01:05 Urine Blood Negative (Negative) 05/17/18 01:05 Urine Nitrite Negative (Negative) 05/17/18 01:05 Urine Bilirubin Negative (Negative) 05/17/18 01:05 Urine Urobilinogen 0.2 EU/dL (Up TO 0.2) 05/17/18 01:05 Ur Leukocyte Esterase Negative (Negative) 05/17/18 01:05 Urine RBC 0-2 (0-2) 05/17/18 01:05 Urine WBC 10-20 HPF (0-5) 05/17/18 01:05 Ur Epithelial Cells Few HPF (Negative) 05/17/18 01:05 Urine Crystals Negative HPF (Negative) 05/17/18 01:05 Urine Bacteria Many HPF (Negative) 05/17/18 01:05 Urine Casts 3-5 hyaline LPF (Negative) 05/17/18 01:05 Urine Mucus Trace (Negative) 05/17/18 01:05 Urine Other Rare transitional (Negative) 05/17/18 01:05 Ur Culture Indicated? Yes 05/17/18 01:05 Urine Glucose 100 mg/dL (Negative) 05/17/18 01:05 Ethyl Alcohol < 3.0 mg/dL (<3) 05/17/18 00:56
[2018-05-19] MEDS: Potassium Chloride 20 MEQ TABCR 40 MEQ PO (16:20)
[2018-05-19] MEDS: Venlafaxine 37.5 MG CAPCR PO (16:21)
[2018-05-19] MEDS: Normal Saline Flush 10 ML SYR IVP (16:22)
[2018-05-19] MEDS: Carvedilol 6.25 MG TAB PO (20:28)
[2018-05-20] MEDS: Acetaminophen 325 MG TAB 650 MG PO ×4 (02:04→23:54)
[2018-05-20 03:45] VITALS: BP 161/91; PULSE 81; RESP 19; TEMP 36.6; O2SAT 94
[2018-05-20] MEDS: Normal Saline 1,000 ML 100 ML IV (07:02)
[2018-05-20 07:31] LABS: Anion Gap 6.4 mmol/L (3-11); BUN 4 mg/dL (7-18); CO2 24.6 mmol/L (21.0-32.0); CREATININE 0.94 mg/dL (0.55-1.02); Calcium 8.6 mg/dL (8.5-10.1); Chloride 103 mmol/L (98-107); Estimated GFR 58.53 (mL/min/1.73m2); Glucose 105 mg/dL (70-100); Magnesium 1.8 mg/dL (1.8-2.4); Potassium 3.8 mmol/L (3.5-5.1); Sodium 134 mmol/L (136-145)
[2018-05-20 08:34] VITALS: BP 170/102; PULSE 82; RESP 20; TEMP 36.5; O2SAT 97
[2018-05-20] MEDS: Venlafaxine 37.5 MG CAPCR PO (08:37)
[2018-05-20] MEDS: Potassium Chloride 20 MEQ TABCR PO ×3 (08:37→19:53)
[2018-05-20] MEDS: Naltrexone 50 MG TAB PO (08:37)
[2018-05-20] MEDS: Cyanocobalamin 500 MCG TAB 1000 MCG PO (08:38)
[2018-05-20] MEDS: Venlafaxine 150 MG CAPCR PO (08:38)
[2018-05-20] MEDS: Folic Acid 1 MG TAB PO (08:38)
[2018-05-20] MEDS: Magnesium Oxide 400 MG TAB PO ×4 (08:39→19:52)
[2018-05-20] MEDS: Losartan 50 MG TAB 100 MG PO (08:39)
[2018-05-20] MEDS: Spironolactone 25 MG TAB 50 MG PO ×2 (08:39→19:52)
[2018-05-20] MEDS: Carvedilol 6.25 MG TAB PO ×2 (08:40→19:53)
[2018-05-20] MEDS: Pantoprazole 40 MG TABCR PO ×2 (08:40→19:52)
[2018-05-20] MEDS: Thiamine 100 MG TAB PO (08:40)
[2018-05-20] MEDS: Gabapentin 100 MG CAP 200 MG PO ×2 (08:41→19:51)
[2018-05-20] MEDS: Multivitamin TAB 1 TAB PO (08:41)
[2018-05-20] MEDS: Sulfameth/Trimeth DS TAB 1 TAB PO ×2 (08:41→19:52)
--- NOTE | 2018-05-20 10:52 | PDOC.CMPRO ---
- If Service Date Differs Date of service: 05/20/18 Time of Service: 10:53 Care Management Progress Note S/O: Leticia is lying in bed when this display card writer visits this morning, she is attempting to make a phone call. Leticia is more alert than she has been with this display card writer this admission. Leticia requests to use the restroom as I've had so much water and CM spoke with full time staff interpreter whom will facilitate. No change in plan at this time. A: 73 year old female admitted to [facility] 05/17/18 for Acute Alcohol Withdrawal, Alcoholic Ketoacidosis P: Leticia will return home, resume current supports [facility] RN/PT and follow up with her PCP. She will transport via [facility]. Please refer to re-admission for explanation of lack of follow through with coordinated services resulting in barriers to care and re-admission issues.
--- NOTE | 2018-05-20 10:54 | CMPROGNOTE_ITS ---
- If Service Date Differs Date of service: 05/20/18 Time of Service: 10:53 Care Management Progress Note S/O: Leticia is lying in bed when this automobile service writer visits this morning, she is attempting to make a phone call. Leticia is more alert than she has been with this automobile service writer this admission. Leticia requests to use the restroom as I've had so much water and CM spoke with staffing consultant whom will facilitate. No change in plan at this time. A: 73 year old female admitted to [facility] 05/17/18 for Acute Alcohol Withdrawal, Alcoholic Ketoacidosis P: Leticia will return home, resume current supports [facility] RN/PT and follow up with her PCP. She will transport via [facility]. Please refer to re-admission for explanation of lack of follow through with coordinated services resulting in barriers to care and re-admission issues.
[2018-05-20 11:20] VITALS: BP 152/89; PULSE 76; RESP 20; TEMP 36.2; O2SAT 96
--- NOTE | 2018-05-20 14:43 | W.PM.PROGNOT ---
Date of service: 05/20/18 Time of Service: 14:45 Assessment and Plan (1) Alcohol withdrawal: Current visit: Yes Status: Chronic Recurrent admissions for acute withdrawl in known alcoholic woman who abruptly stops drinking at home. CIWA scores have been declining. Continue CIWA protocol, but currently without evidence of withdrawl. (2) Hypertension: Current visit: Yes Status: Acute Poorly controlled and recurrent problem. Continue ARB, BB, and Spironolactone. BB changed to Coreg previously, and ARB maximized. Will increase Spironolactone to twice daily dosing. (3) Alcohol dependence: Current visit: Yes Status: Chronic Recurrent admissions for alcohol withdrawal. Has declined offers for multiple different strategies aimed at assisting her at home in the past. (4) Gastritis: Current visit: Yes Status: Chronic May be on the basis of chronic ETOH abuse. Currently on BID H2 j luis as well as BID PPI therapy. (5) UTI (urinary tract infection): Current visit: Yes Status: Acute Klebsiella Pneumonia, but only at 50 -100,000 colonies/ML. Sensitive to Bactrim - currently day #2. Urinalysis with negative Nitrite, negative LE, and 10-20 WBCs. Plan on discontinuation of antibiotics tomorrow. (6) DVT prophylaxis: Current visit: No Status: Acute Start daily SC Lovenox. Subjective Interval history since last seen: Appears oriented and appropriate today. No evidence of significant hallucinations or tremors. No overnight events reported. Remains afebrile. Exam Narrative Exam Narrative: General: Patient appears comfortable, AAOX3, NAD Neck: Supple CV: Regular, nontachycardic, S1S2, No rubs, murmurs, or gallops. Pulmonary: Clear to auscultation bilaterally, no crackles, wheezing, or rhonchi Abdomen: + Bowel Sounds, soft, nontender, nondistended Vascular: No lower extremity edema Neurologic: CN II-XII grossly intact. No focal deficits. Psych: Normal mood and affect. Objective Objective Clinical Data: Abnormal lab results 05/20/18 Range/Units 06:45 Sodium 134 L (136-145) mmol/L BUN 4 L (7-18) mg/dL Glucose 105 H (70-100) mg/dL Vital Signs Temperature 36.2 C L 05/20/18 11:20 Temperature Source Tympanic 05/20/18 11:20 Pulse 76 05/20/18 11:20 Pulse Rhythm Regular 05/20/18 09:26 Pulse 115 H 05/17/18 03:15 Respiratory Rate 20 05/20/18 11:20 Respiratory Effort Non-Labored 05/20/18 09:26 Respiratory Depth Normal 05/20/18 09:26 Respiratory Pattern Normal 05/20/18 09:26 Blood Pressure 152/89 H 05/20/18 11:20 Blood Pressure Mean 79 05/17/18 03:15 Pulse Oximetry 96 05/20/18 11:20 Oxygen Delivery Method Room Air 05/20/18 11:20 Oxygen Flow Rate 0 05/20/18 11:20 Pain Level 3 05/20/18 09:37 Comment 05/20/18 08:34 Intake & Output 05/19/18 05/20/18 05/20/18 23:59 11:59 23:59 Intake Total 1600 / 1600 1108.333 / 1108.333 920 / 920 Output Total 200 / 200 1200 / 1200 400 / 400 Balance 1400 / 1400 -91.667 / -91.667 520 / 520 Intake: IV 1000 / 1000 868.333 / 868.333 Oral 600 / 600 240 / 240 920 / 920 Output: Urine 200 / 200 1200 / 1200 400 / 400 Other: Urine Color Yellow Pale Yellow Yellow Urine Appearance Clear Clear Clear Urine Odor Normal Normal Comment Patient voided 200cc in commode and was incontinent of large amount of urine at this time. void x 1 + inc large amount plus largely incontinent. Voiding Methods Bedside Commode Diaper Bedside Commode Incontinent Incontinent Laboratory Results WBC 12.48 k/cumm (4.4-10.8) H 05/17/18 00:56 RBC 3.71 m/cumm (4.00-5.20) L 05/17/18 00:56 Hgb 11.6 g/dL (12.0-15.5) L 05/17/18 00:56 Hct 35.5 % (36.0-46.0) L 05/17/18 00:56 MCV 95.7 fL (80-95) H 05/17/18 00:56 MCH 31.3 pg (27.0-33.0) 05/17/18 00:56 MCHC 32.7 g/dL (32.0-36.0) 05/17/18 00:56 RDW 17.9 % (11.7-14.6) H 05/17/18 00:56 Plt Count 213 x1000/uL (130-400) 05/17/18 00:56 MPV 10.2 fL (8.0-11.0) 05/17/18 00:56 Immature Gran % 0.2 05/17/18 00:56 Neutrophils % 94.2 05/17/18 00:56 Lymphocytes % 2.3 05/17/18 00:56 Monocytes % 3.1 05/17/18 00:56 Eosinophils % 0.1 05/17/18 00:56 Basophils % 0.1 05/17/18 00:56 Absolute Neutrophils 11.76 k/cumm (1.2-6.7) H 05/17/18 00:56 Absolute Lymphocytes 0.29 k/cumm (1.2-3.4) L 05/17/18 00:56 Absolute Monocytes 0.39 k/cumm (0.11-0.7) 05/17/18 00:56 Absolute Eosinophils 0.01 k/cumm (0.0-0.7) 05/17/18 00:56 Absolute Basophils 0.01 k/cumm (0.0-0.2) 05/17/18 00:56 Sodium 134 mmol/L (136-145) L 05/20/18 06:45 Potassium 3.8 mmol/L (3.5-5.1) D 05/20/18 06:45 Chloride 103 mmol/L (98-107) 05/20/18 06:45 Carbon Dioxide 24.6 mmol/L (21.0-32.0) 05/20/18 06:45 Anion Gap 6.4 mmol/L (3-11) 05/20/18 06:45 BUN 4 mg/dL (7-18) L 05/20/18 06:45 Creatinine 0.94 mg/dL (0.55-1.02) 05/20/18 06:45 Estimated GFR/1.73 m2 58.53 (mL/min/1.73m2) 05/20/18 06:45 Glucose 105 mg/dL (70-100) H 05/20/18 06:45 Calcium 8.6 mg/dL (8.5-10.1) 05/20/18 06:45 Magnesium 1.8 mg/dL (1.8-2.4) 05/20/18 06:45 Total Bilirubin 1.6 mg/dL (0.2-1.0) H 05/17/18 00:56 Conjugated Bilirubin 0.33 mg/dL (0.00-0.20) H 05/17/18 00:56 AST 39 U/L (15-37) H 05/17/18 00:56 ALT 40 U/L (12-78) 05/17/18 00:56 Alkaline Phosphatase 149 U/L (46-116) H 05/17/18 00:56 Troponin I 0.02 ng/mL (0.00-0.06) 05/17/18 00:56 Total Protein 7.5 g/dL (6.4-8.2) 05/17/18 00:56 Albumin 4.0 g/dL (3.4-5.0) 05/17/18 00:56 Lipase 84 U/L (73-393) 05/17/18 00:56 Urine Color Straw (Yellow) 05/17/18 01:05 Urine Clarity Clear 05/17/18 01:05 Urine pH 5.5 (5-8) 05/17/18 01:05 Ur Specific [place] 1.025 (1.005-1.025) 05/17/18 01:05 Urine Protein 100 mg/dL (Negative) H 05/17/18 01:05 Urine Ketones >=160 mg/dL (Negative) 05/17/18 01:05 Urine Blood Negative (Negative) 05/17/18 01:05 Urine Nitrite Negative (Negative) 05/17/18 01:05 Urine Bilirubin Negative (Negative) 05/17/18 01:05 Urine Urobilinogen 0.2 EU/dL (Up TO 0.2) 05/17/18 01:05 Ur Leukocyte Esterase Negative (Negative) 05/17/18 01:05 Urine RBC 0-2 (0-2) 05/17/18 01:05 Urine WBC 10-20 HPF (0-5) 05/17/18 01:05 Ur Epithelial Cells Few HPF (Negative) 05/17/18 01:05 Urine Crystals Negative HPF (Negative) 05/17/18 01:05 Urine Bacteria Many HPF (Negative) 05/17/18 01:05 Urine Casts 3-5 hyaline LPF (Negative) 05/17/18 01:05 Urine Mucus Trace (Negative) 05/17/18 01:05 Urine Other Rare transitional (Negative) 05/17/18 01:05 Ur Culture Indicated? Yes 05/17/18 01:05 Urine Glucose 100 mg/dL (Negative) 05/17/18 01:05 Ethyl Alcohol < 3.0 mg/dL (<3) 05/17/18 00:56
[2018-05-20] MEDS: Enoxaparin 40 MG/0.4 ML SYR SC (16:07)
[2018-05-20 17:45] LABS: HCT 34.5 % (36.0-46.0); HGB 10.9 g/dL (12.0-15.5); Mean Corp. HGB Concentration 31.6 g/dL (32.0-36.0); Mean Corpuscular Volume 85.6 fL (80-95); Mean Platelet Volume 8.8 fL (8.0-11.0); Platelet Count 408 x1000/uL (130-400); RBC 4.03 m/cumm (4.00-5.20); RBC Distribution Width 15.5 % (11.7-14.6)
[2018-05-20 19:49] VITALS: BP 164/96; PULSE 79; RESP 18; TEMP 36.6; O2SAT 97
[2018-05-20 22:36] VITALS: O2SAT 97
[2018-05-21 07:31] LABS: Magnesium 1.6 mg/dL (1.8-2.4)
[2018-05-21 07:33] LABS: BUN 7 mg/dL (7-18); CREATININE 1.14 mg/dL (0.55-1.02); Calcium 9.3 mg/dL (8.5-10.1); Chloride 101 mmol/L (98-107); Estimated GFR 46.85 (mL/min/1.73m2); Glucose 102 mg/dL (70-100); Potassium 4.4 mmol/L (3.5-5.1); Sodium 135 mmol/L (136-145)
[2018-05-21 07:45] VITALS: BP 162/111; PULSE 98; RESP 20; TEMP 36.2; O2SAT 98
[2018-05-21] MEDS: Gabapentin 100 MG CAP 200 MG PO ×2 (07:54→19:41)
[2018-05-21] MEDS: Cyanocobalamin 500 MCG TAB 1000 MCG PO (07:55)
[2018-05-21] MEDS: Pantoprazole 40 MG TABCR PO ×2 (07:55→19:40)
[2018-05-21] MEDS: Naltrexone 50 MG TAB PO (07:55)
[2018-05-21] MEDS: Magnesium Oxide 400 MG TAB PO ×3 (07:56→19:40)
[2018-05-21] MEDS: Venlafaxine 150 MG CAPCR PO (07:56)
[2018-05-21] MEDS: Multivitamin TAB 1 TAB PO (07:56)
[2018-05-21] MEDS: Thiamine 100 MG TAB PO (07:56)
[2018-05-21] MEDS: Venlafaxine 37.5 MG CAPCR PO (07:57)
[2018-05-21] MEDS: Carvedilol 6.25 MG TAB PO ×2 (07:58→19:40)
[2018-05-21] MEDS: Acetaminophen 325 MG TAB 650 MG PO ×3 (07:58→21:10)
[2018-05-21] MEDS: Losartan 50 MG TAB 100 MG PO (07:58)
[2018-05-21] MEDS: Spironolactone 25 MG TAB 50 MG PO (07:58)
[2018-05-21] MEDS: Potassium Chloride 20 MEQ TABCR PO ×2 (07:59→19:40)
[2018-05-21] MEDS: Normal Saline Flush 10 ML SYR IVP ×2 (08:00→10:31)
[2018-05-21] MEDS: Folic Acid 1 MG TAB PO (08:00)
[2018-05-21] MEDS: Sulfameth/Trimeth DS TAB 1 TAB PO ×2 (08:00→19:41)
[2018-05-21 10:00] VITALS: BP 154/95; PULSE 81; RESP 18; TEMP 36.8; O2SAT 95
[2018-05-21] MEDS: amLODIPine 10 MG TAB PO (10:30)
[2018-05-21] MEDS: MAGNESIUM SULFATE 2 GM/50 ML BAG IVPB (10:30)
[2018-05-21] MEDS: Normal Saline 500 ML 200 ML IVPB (10:31)
--- NOTE | 2018-05-21 13:41 | PDOC.CMPRO ---
- If Service Date Differs Date of service: 05/21/18 Time of Service: 13:41 Care Management Progress Note S/O: Leticia is sitting up in her chair this morning when this radio news writer visits, her mentation continues to improve. Per morning report CIWA will be DC'd at this time. Leticia continues to be treated for the UTI. No change in DC plan. A: 73 year old female admitted to [facility] 05/17/18 for Acute Alcohol Withdrawal, Alcoholic Ketoacidosis P: Leticia will return home, resume current supports [facility] RN/PT and follow up with her PCP. She will transport via [facility]. Please refer to re-admission for explanation of lack of follow through with coordinated services resulting in barriers to care and re-admission issues.
--- NOTE | 2018-05-21 13:44 | CMPROGNOTE_ITS ---
- If Service Date Differs Date of service: 05/21/18 Time of Service: 13:41 Care Management Progress Note S/O: Leticia is sitting up in her chair this morning when this radio news writer visits, her mentation continues to improve. Per morning report CIWA will be DC'd at this time. Leticia continues to be treated for the UTI. No change in DC plan. A: 73 year old female admitted to [facility] 05/17/18 for Acute Alcohol Withdrawal, Alcoholic Ketoacidosis P: Leticia will return home, resume current supports [facility] RN/PT and follow up with her PCP. She will transport via [facility]. Please refer to re-admission for explanation of lack of follow through with coordinated services resulting in barriers to care and re-admission issues.
[2018-05-21] MEDS: Enoxaparin 40 MG/0.4 ML SYR SC (15:11)
--- NOTE | 2018-05-21 15:16 | W.PM.PROGNOT ---
Date of service: 05/21/18 Time of Service: 15:16 Assessment and Plan (1) Alcohol withdrawal: Current visit: Yes Status: Chronic Recurrent admissions for acute withdrawl in known alcoholic woman who abruptly stops drinking at home. CIWA scores have been declining and now >96 hours following admission. Discontinue CIWA protocol. (2) Hypertension: Current visit: Yes Status: Acute Poorly controlled and recurrent problem. Currently appears improved, but with slightly increasing creatinine. Continue ARB, BB, and Spironolactone, but decrease dose of K+ Sparing agent. BB changed to Coreg previously, and ARB maximized. Initiate CCB therapy today. Monitor and repeat kidney function in morning. (3) Alcohol dependence: Current visit: Yes Status: Chronic Recurrent admissions for alcohol withdrawal. Has declined offers for multiple different strategies aimed at assisting her at home and as an outpatient in the past. (4) Gastritis: Current visit: Yes Status: Chronic May be on the basis of chronic ETOH abuse. Currently on BID H2 j luis as well as BID PPI therapy. (5) UTI (urinary tract infection): Current visit: Yes Status: Acute Klebsiella Pneumonia, but only at 50 -100,000 colonies/ML. Sensitive to Bactrim - currently day #2. Urinalysis with negative Nitrite, negative LE, and 10-20 WBCs. Will discontinue antibiotic therapy after tonight's dose. (6) DVT prophylaxis: Current visit: No Status: Acute Daily SC Lovenox. Subjective Interval history since last seen: Appears oriented and appropriate again today. No evidence of significant hallucinations or tremors. Not scoring high on CIWA, now >96 hours after last drink. No overnight events reported. Remains afebrile. Exam Narrative Exam Narrative: General: Patient appears comfortable, AAOX3, NAD Psych: Normal mood and affect. Objective Objective Clinical Data: Abnormal lab results 05/20/18 05/21/18 05/21/18 Range/Units 17:31 06:30 06:30 Hgb 10.9 L (12.0-15.5) g/dL Hct 34.5 L (36.0-46.0) % MCHC 31.6 L (32.0-36.0) g/dL RDW 15.5 H (11.7-14.6) % Plt Count 408 H (130-400) x1000/uL Sodium 135 L (136-145) mmol/L Creatinine 1.14 H (0.55-1.02) mg/dL Glucose 102 H (70-100) mg/dL Magnesium 1.6 L (1.8-2.4) mg/dL Vital Signs Temperature 36.8 C 05/21/18 10:00 Temperature Source Tympanic 05/21/18 10:00 Pulse 81 05/21/18 10:00 Pulse Rhythm Regular 05/21/18 08:08 Pulse 115 H 05/17/18 03:15 Respiratory Rate 18 05/21/18 10:00 Respiratory Effort Non-Labored 05/21/18 08:08 Respiratory Depth Normal 05/21/18 08:08 Respiratory Pattern Normal 05/21/18 08:08 Blood Pressure 154/95 H 05/21/18 10:00 Blood Pressure Mean 79 05/17/18 03:15 Pulse Oximetry 95 05/21/18 10:00 Oxygen Delivery Method Room Air 05/21/18 10:00 Oxygen Flow Rate 0 05/21/18 10:00 Pain Level 6 05/21/18 15:12 Comment 05/21/18 10:00 Intake & Output 05/20/18 05/21/18 05/21/18 23:59 11:59 23:59 Intake Total 1040 / 1040 500 / 500 240 / 240 Output Total 1250 / 1250 550 / 550 500 / 500 Balance -210 / -210 -50 / -50 -260 / -260 Intake: IV 10 Oral 1040 / 1040 490 / 490 240 / 240 Output: Urine 1250 / 1250 550 / 550 500 / 500 Other: Urine Color Yellow Yellow Yellow Urine Appearance Clear Clear Clear Urine Odor None Normal Normal Comment plus largely incontinent. Void x 1 in toilet Voiding Methods Toilet Diaper Toilet Diaper Incontinent Incontinent Laboratory Results WBC 9.00 k/cumm (4.4-10.8) 05/20/18 17:31 RBC 4.03 m/cumm (4.00-5.20) 05/20/18 17:31 Hgb 10.9 g/dL (12.0-15.5) L 05/20/18 17:31 Hct 34.5 % (36.0-46.0) L 05/20/18 17:31 MCV 85.6 fL (80-95) 05/20/18 17:31 MCH 27.0 pg (27.0-33.0) 05/20/18 17:31 MCHC 31.6 g/dL (32.0-36.0) L 05/20/18 17:31 RDW 15.5 % (11.7-14.6) H 05/20/18 17:31 Plt Count 408 x1000/uL (130-400) H 05/20/18 17:31 MPV 8.8 fL (8.0-11.0) 05/20/18 17:31 Immature Gran % 0.2 05/17/18 00:56 Neutrophils % 94.2 05/17/18 00:56 Lymphocytes % 2.3 05/17/18 00:56 Monocytes % 3.1 05/17/18 00:56 Eosinophils % 0.1 05/17/18 00:56 Basophils % 0.1 05/17/18 00:56 Absolute Neutrophils 11.76 k/cumm (1.2-6.7) H 05/17/18 00:56 Absolute Lymphocytes 0.29 k/cumm (1.2-3.4) L 05/17/18 00:56 Absolute Monocytes 0.39 k/cumm (0.11-0.7) 05/17/18 00:56 Absolute Eosinophils 0.01 k/cumm (0.0-0.7) 05/17/18 00:56 Absolute Basophils 0.01 k/cumm (0.0-0.2) 05/17/18 00:56 Sodium 135 mmol/L (136-145) L 05/21/18 06:30 Potassium 4.4 mmol/L (3.5-5.1) 05/21/18 06:30 Chloride 101 mmol/L (98-107) 05/21/18 06:30 Carbon Dioxide 24.0 mmol/L (21.0-32.0) 05/21/18 06:30 Anion Gap 10.0 mmol/L (3-11) 05/21/18 06:30 BUN 7 mg/dL (7-18) 05/21/18 06:30 Creatinine 1.14 mg/dL (0.55-1.02) H 05/21/18 06:30 Estimated GFR/1.73 m2 46.85 (mL/min/1.73m2) 05/21/18 06:30 Glucose 102 mg/dL (70-100) H 05/21/18 06:30 Calcium 9.3 mg/dL (8.5-10.1) 05/21/18 06:30 Magnesium 1.6 mg/dL (1.8-2.4) L 05/21/18 06:30 Total Bilirubin 1.6 mg/dL (0.2-1.0) H 05/17/18 00:56 Conjugated Bilirubin 0.33 mg/dL (0.00-0.20) H 05/17/18 00:56 AST 39 U/L (15-37) H 05/17/18 00:56 ALT 40 U/L (12-78) 05/17/18 00:56 Alkaline Phosphatase 149 U/L (46-116) H 05/17/18 00:56 Troponin I 0.02 ng/mL (0.00-0.06) 05/17/18 00:56 Total Protein 7.5 g/dL (6.4-8.2) 05/17/18 00:56 Albumin 4.0 g/dL (3.4-5.0) 05/17/18 00:56 Lipase 84 U/L (73-393) 05/17/18 00:56 Urine Color Straw (Yellow) 05/17/18 01:05 Urine Clarity Clear 05/17/18 01:05 Urine pH 5.5 (5-8) 05/17/18 01:05 Ur Specific [place] 1.025 (1.005-1.025) 05/17/18 01:05 Urine Protein 100 mg/dL (Negative) H 05/17/18 01:05 Urine Ketones >=160 mg/dL (Negative) 05/17/18 01:05 Urine Blood Negative (Negative) 05/17/18 01:05 Urine Nitrite Negative (Negative) 05/17/18 01:05 Urine Bilirubin Negative (Negative) 05/17/18 01:05 Urine Urobilinogen 0.2 EU/dL (Up TO 0.2) 05/17/18 01:05 Ur Leukocyte Esterase Negative (Negative) 05/17/18 01:05 Urine RBC 0-2 (0-2) 05/17/18 01:05 Urine WBC 10-20 HPF (0-5) 05/17/18 01:05 Ur Epithelial Cells Few HPF (Negative) 05/17/18 01:05 Urine Crystals Negative HPF (Negative) 05/17/18 01:05 Urine Bacteria Many HPF (Negative) 05/17/18 01:05 Urine Casts 3-5 hyaline LPF (Negative) 05/17/18 01:05 Urine Mucus Trace (Negative) 05/17/18 01:05 Urine Other Rare transitional (Negative) 05/17/18 01:05 Ur Culture Indicated? Yes 05/17/18 01:05 Urine Glucose 100 mg/dL (Negative) 05/17/18 01:05 Ethyl Alcohol < 3.0 mg/dL (<3) 05/17/18 00:56
[2018-05-21 16:07] VITALS: BP 119/77; PULSE 85; RESP 18; TEMP 36.7; O2SAT 96
[2018-05-21] MEDS: traZODone 100 MG TAB PO (21:04)
[2018-05-22 00:25] VITALS: BP 105/68; PULSE 74; RESP 15; TEMP 36.2; O2SAT 98
[2018-05-22 07:35] VITALS: BP 149/83; PULSE 81; RESP 17; TEMP 36.3; O2SAT 96
[2018-05-22 07:40] VITALS: O2SAT 96
[2018-05-22 07:50] LABS: Anion Gap 9.4 mmol/L (3-11); BUN 10 mg/dL (7-18); CO2 23.6 mmol/L (21.0-32.0); CREATININE 1.43 mg/dL (0.55-1.02); Calcium 9.5 mg/dL (8.5-10.1); Chloride 101 mmol/L (98-107); Estimated GFR 36.07 (mL/min/1.73m2); Glucose 96 mg/dL (70-100); Potassium 4.5 mmol/L (3.5-5.1); Sodium 134 mmol/L (136-145)
[2018-05-22] MEDS: Acetaminophen 325 MG TAB 650 MG PO ×3 (09:24→22:43)
[2018-05-22] MEDS: Naltrexone 50 MG TAB PO (09:24)
[2018-05-22] MEDS: Carvedilol 6.25 MG TAB PO ×2 (09:25→19:54)
[2018-05-22] MEDS: Gabapentin 100 MG CAP 200 MG PO ×2 (09:26→19:55)
[2018-05-22] MEDS: Venlafaxine 150 MG CAPCR PO (09:26)
[2018-05-22] MEDS: Cyanocobalamin 500 MCG TAB 1000 MCG PO (09:26)
[2018-05-22] MEDS: Magnesium Oxide 400 MG TAB PO ×3 (09:26→19:54)
[2018-05-22] MEDS: Multivitamin TAB 1 TAB PO (09:27)
[2018-05-22] MEDS: Potassium Chloride 20 MEQ TABCR PO ×2 (09:27→19:54)
[2018-05-22] MEDS: Spironolactone 25 MG TAB 50 MG PO (09:27)
[2018-05-22] MEDS: Thiamine 100 MG TAB PO (09:27)
[2018-05-22] MEDS: Pantoprazole 40 MG TABCR PO ×2 (09:27→19:54)
[2018-05-22] MEDS: amLODIPine 10 MG TAB PO (09:28)
[2018-05-22] MEDS: Venlafaxine 37.5 MG CAPCR PO (09:28)
[2018-05-22] MEDS: Folic Acid 1 MG TAB PO (09:28)
--- NOTE | 2018-05-22 10:57 | PDOC.CMPRO ---
- If Service Date Differs Date of service: 05/22/18 Time of Service: 10:57 Care Management Progress Note S/O: Leticia is lying in bed watching TV when this newspaper writer visits. She is pleasant and open to conversation. Leticia states that she is hopeful to return home soon as her dog was recently put to sleep (Yesterday). Leticia states that she partially blames herself, as her dog would get into a lot of things on the floor, was able to assist Leticia with processing this. Leticia also states that when she returns home she would like [facility] to transport her. A: 73 year old female admitted to [facility] 05/17/18 for Acute Alcohol Withdrawal, Alcoholic Ketoacidosis P: Leticia will return home, resume current supports [facility] RN/PT and follow up with her PCP. She will transport via [facility].
--- NOTE | 2018-05-22 11:00 | CMPROGNOTE_ITS ---
- If Service Date Differs Date of service: 05/22/18 Time of Service: 10:57 Care Management Progress Note S/O: Leticia is lying in bed watching TV when this chief writer visits. She is pleasant and open to conversation. Leticia states that she is hopeful to return home soon as her dog was recently put to sleep (Yesterday). Leticia states that she partially blames herself, as her dog would get into a lot of things on the floor , was able to assist Leticia with processing this. Leticia also states that when she returns home she would like [facility] to transport her. A: 73 year old female admitted to [facility] 05/17/18 for Acute Alcohol Withdrawal, Alcoholic Ketoacidosis P: Leticia will return home, resume current supports [facility] RN/PT and follow up with her PCP. She will transport via [facility].
[2018-05-22] MEDS: Normal Saline Flush 10 ML SYR IVP ×2 (11:30→17:50)
--- NOTE | 2018-05-22 14:21 | PGE_ITS ---
Documented by User: Iris Mendieta NP 05/22/18 14:21 Date of service: 05/22/18 Time of Service: 14:12 Assessment and Plan (1) Alcohol withdrawal: Current visit: Yes Status: Chronic CIWA discontinued yesterday. Continues to show no signs or symptoms of withdrawal. (2) Hypertension: Current visit: Yes Status: Acute Continue BB, CCB, Spironolactone, ARB discontinued due to worsening kidney function. Will repeat in the morning to re-evaluate and consider adding back to her regimen once renal function normalizes. (3) Alcohol dependence: Current visit: Yes Status: Chronic Recurrent admissions for alcohol withdrawal. Has declined offers for multiple different strategies aimed at assisting her at home and as an outpatient in the past. (4) Gastritis: Current visit: Yes Status: Chronic Continue BID H2 j luis and PPI therapy. Strongly encouraged sustained abstinence from ETOH. (5) UTI (urinary tract infection): Current visit: Yes Status: Acute Discontinued Bactrim after 3 days of treatment for an uncomplicated UTI. Monitor for symptoms. (6) DVT prophylaxis: Current visit: No Status: Acute Daily SC Lovenox. Subjective Patient reports: no new complaints Interval history since last seen: Leticia appears drowsy and comfortable in bed, although she complains of a XIONG today. These occur frequently at home and are typically relieved with tylenol which she took an hour before our meeting. Is not currently experiencing any ETOH withdrawal symptoms. Nursing has no concerns. ROS: 10 point ROS obtained with pertinent positives noted in HPI, otherwise negative. Exam Narrative Exam Narrative: General: 73yo Female. Well developed and well nourished. No acute distress. A/Ox3. Cooperative. HEENT: Normocephalic, Atraumatic. Conjunctiva clear, sclera non-icteric. PERRL. EOMI. Moist mucous membranes, oropharynx clear. Neck supple, no JVD, thyromegaly or lymphadenopathy. Cardiovascular: Regular rate and rhythm, S1S2, no S3 or S4. No murmur, rub, gallop. Respiratory: Chest expansion symmetrical, respirations unlabored. Lungs clear to auscultation, no adventitious breath sounds. GI: Abdomen round, soft, non-tender to palpation. Normoactive bowel sounds in all 4 quadrants. No hepatosplenomegaly or prominent masses. : deferred Extremities: Lower extremities without deformity or edema Neurological: non-focal. CN 2-12 grossly intact. Psychiatric: pleasant and cooperative. Speech clear and articulate. Depressed/ anxious affect Objective Objective Clinical Data: Abnormal lab results 05/22/18 Range/Units 07:12 Sodium 134 L (136-145) mmol/L Creatinine 1.43 H (0.55-1.02) mg/dL Vital Signs Temperature 36.3 C L 05/22/18 07:35 Temperature Source Tympanic 05/22/18 07:35 Pulse 81 05/22/18 07:35 Pulse Rhythm Regular 05/22/18 09:20 Pulse 115 H 05/17/18 03:15 Respiratory Rate 17 05/22/18 07:35 Respiratory Effort Non-Labored 05/22/18 09:20 Respiratory Depth Normal 05/22/18 09:20 Respiratory Pattern Normal 05/22/18 09:20 Blood Pressure 149/83 H 05/22/18 07:35 Blood Pressure Mean 79 05/17/18 03:15 Pulse Oximetry 96 05/22/18 07:40 Oxygen Delivery Method Room Air 05/22/18 07:40 Oxygen Flow Rate 0 05/22/18 07:40 Pain Level 3 05/22/18 13:43 Comment 05/21/18 10:00 Intake & Output 05/21/18 05/22/18 05/22/18 23:59 11:59 23:59 Intake Total 980 / 980 650 / 650 450 / 450 Output Total 700 / 700 550 / 550 Balance 280 / 280 100 / 100 450 / 450 Intake: IV 500 / 500 10 / 10 Oral 480 / 480 640 / 640 450 / 450 Output: Urine 700 / 700 550 / 550 Other: Urine Color Yellow Yellow Urine Appearance Clear Clear Urine Odor Normal None Comment mixed with stool Stool Size Moderate Stool Characteristics Soft Formed Brown Voiding Methods Toilet Bedside Commode Laboratory Results WBC 9.00 k/cumm (4.4-10.8) 05/20/18 17:31 RBC 4.03 m/cumm (4.00-5.20) 05/20/18 17:31 Hgb 10.9 g/dL (12.0-15.5) L 05/20/18 17:31 Hct 34.5 % (36.0-46.0) L 05/20/18 17:31 MCV 85.6 fL (80-95) 05/20/18 17:31 MCH 27.0 pg (27.0-33.0) 05/20/18 17:31 MCHC 31.6 g/dL (32.0-36.0) L 05/20/18 17:31 RDW 15.5 % (11.7-14.6) H 05/20/18 17:31 Plt Count 408 x1000/uL (130-400) H 05/20/18 17:31 MPV 8.8 fL (8.0-11.0) 05/20/18 17:31 Immature Gran % 0.2 05/17/18 00:56 Neutrophils % 94.2 05/17/18 00:56 Lymphocytes % 2.3 05/17/18 00:56 Monocytes % 3.1 05/17/18 00:56 Eosinophils % 0.1 05/17/18 00:56 Basophils % 0.1 05/17/18 00:56 Absolute Neutrophils 11.76 k/cumm (1.2-6.7) H 05/17/18 00:56 Absolute Lymphocytes 0.29 k/cumm (1.2-3.4) L 05/17/18 00:56 Absolute Monocytes 0.39 k/cumm (0.11-0.7) 05/17/18 00:56 Absolute Eosinophils 0.01 k/cumm (0.0-0.7) 05/17/18 00:56 Absolute Basophils 0.01 k/cumm (0.0-0.2) 05/17/18 00:56 Sodium 134 mmol/L (136-145) L 05/22/18 07:12 Potassium 4.5 mmol/L (3.5-5.1) 05/22/18 07:12 Chloride 101 mmol/L (98-107) 05/22/18 07:12 Carbon Dioxide 23.6 mmol/L (21.0-32.0) 05/22/18 07:12 Anion Gap 9.4 mmol/L (3-11) 05/22/18 07:12 BUN 10 mg/dL (7-18) 05/22/18 07:12 Creatinine 1.43 mg/dL (0.55-1.02) H 05/22/18 07:12 Estimated GFR/1.73 m2 36.07 (mL/min/1.73m2) 05/22/18 07:12 Glucose 96 mg/dL (70-100) 05/22/18 07:12 Calcium 9.5 mg/dL (8.5-10.1) 05/22/18 07:12 Magnesium 2.0 mg/dL (1.8-2.4) 05/22/18 07:12 Total Bilirubin 1.6 mg/dL (0.2-1.0) H 05/17/18 00:56 Conjugated Bilirubin 0.33 mg/dL (0.00-0.20) H 05/17/18 00:56 AST 39 U/L (15-37) H 05/17/18 00:56 ALT 40 U/L (12-78) 05/17/18 00:56 Alkaline Phosphatase 149 U/L (46-116) H 05/17/18 00:56 Troponin I 0.02 ng/mL (0.00-0.06) 05/17/18 00:56 Total Protein 7.5 g/dL (6.4-8.2) 05/17/18 00:56 Albumin 4.0 g/dL (3.4-5.0) 05/17/18 00:56 Lipase 84 U/L (73-393) 05/17/18 00:56 Urine Color Straw (Yellow) 05/17/18 01:05 Urine Clarity Clear 05/17/18 01:05 Urine pH 5.5 (5-8) 05/17/18 01:05 Ur Specific [place] 1.025 (1.005-1.025) 05/17/18 01:05 Urine Protein 100 mg/dL (Negative) H 05/17/18 01:05 Urine Ketones >=160 mg/dL (Negative) 05/17/18 01:05 Urine Blood Negative (Negative) 05/17/18 01:05 Urine Nitrite Negative (Negative) 05/17/18 01:05 Urine Bilirubin Negative (Negative) 05/17/18 01:05 Urine Urobilinogen 0.2 EU/dL (Up TO 0.2) 05/17/18 01:05 Ur Leukocyte Esterase Negative (Negative) 05/17/18 01:05 Urine RBC 0-2 (0-2) 05/17/18 01:05 Urine WBC 10-20 HPF (0-5) 05/17/18 01:05 Ur Epithelial Cells Few HPF (Negative) 05/17/18 01:05 Urine Crystals Negative HPF (Negative) 05/17/18 01:05 Urine Bacteria Many HPF (Negative) 05/17/18 01:05 Urine Casts 3-5 hyaline LPF (Negative) 05/17/18 01:05 Urine Mucus Trace (Negative) 05/17/18 01:05 Urine Other Rare transitional (Negative) 05/17/18 01:05 Ur Culture Indicated? Yes 05/17/18 01:05 Urine Glucose 100 mg/dL (Negative) 05/17/18 01:05 Ethyl Alcohol < 3.0 mg/dL (<3) 05/17/18 00:56
--- NOTE | 2018-05-22 14:54 | CHAPLAIN ---
Leticia was watching [employer] when I stopped in. She said the shows are comforting, but also make her sad because she misses her four cats. Recently (yesterday?) one of her four dogs from liver cancer. She still has four cats she said. Her shoulder is still sore from her fall, she said, and now she is wondering when she will be going home.
[2018-05-22] MEDS: Enoxaparin 40 MG/0.4 ML SYR SC (15:09)
[2018-05-22 15:10] VITALS: BP 111/64; PULSE 78; RESP 16; TEMP 36.2; O2SAT 94
[2018-05-22] MEDS: traMADol 50 MG TAB PO (21:40)
[2018-05-22] MEDS: traZODone 100 MG TAB PO (22:44)
[2018-05-23 00:38] VITALS: BP 139/81; PULSE 80; RESP 19; TEMP 36.8; O2SAT 95
[2018-05-23 07:30] VITALS: BP 126/85; PULSE 82; RESP 17; TEMP 36.6; O2SAT 97
[2018-05-23 07:45] VITALS: O2SAT 97
[2018-05-23 07:49] LABS: Anion Gap 7.8 mmol/L (3-11); BUN 12 mg/dL (7-18); CO2 25.2 mmol/L (21.0-32.0); CREATININE 1.45 mg/dL (0.55-1.02); Calcium 10.2 mg/dL (8.5-10.1); Chloride 104 mmol/L (98-107); Glucose 101 mg/dL (70-100); Magnesium 1.9 mg/dL (1.8-2.4); Potassium 4.6 mmol/L (3.5-5.1); Sodium 137 mmol/L (136-145)
[2018-05-23] MEDS: Gabapentin 100 MG CAP 200 MG PO ×2 (07:58→19:57)
[2018-05-23] MEDS: Naltrexone 50 MG TAB PO (07:59)
[2018-05-23] MEDS: Acetaminophen 325 MG TAB 650 MG PO ×2 (07:59→12:31)
[2018-05-23] MEDS: Pantoprazole 40 MG TABCR PO ×2 (07:59→19:57)
[2018-05-23] MEDS: Spironolactone 25 MG TAB 50 MG PO (07:59)
[2018-05-23] MEDS: Carvedilol 6.25 MG TAB PO ×2 (07:59→19:57)
[2018-05-23] MEDS: Venlafaxine 150 MG CAPCR PO (08:00)
[2018-05-23] MEDS: Multivitamin TAB 1 TAB PO (08:00)
[2018-05-23] MEDS: amLODIPine 10 MG TAB PO (08:00)
[2018-05-23] MEDS: Folic Acid 1 MG TAB PO (08:00)
[2018-05-23] MEDS: Thiamine 100 MG TAB PO (08:00)
[2018-05-23] MEDS: Magnesium Oxide 400 MG TAB PO ×3 (08:00→19:57)
[2018-05-23] MEDS: Potassium Chloride 20 MEQ TABCR PO ×2 (08:00→19:57)
[2018-05-23] MEDS: Venlafaxine 37.5 MG CAPCR PO (08:00)
[2018-05-23] MEDS: Cyanocobalamin 500 MCG TAB 1000 MCG PO (08:00)
[2018-05-23 08:34] LABS: Platelet Count 193 x1000/uL (130-400)
[2018-05-23 15:53] VITALS: BP 104/71; PULSE 85; RESP 18; TEMP 35.9; O2SAT 97
[2018-05-23] MEDS: Enoxaparin 40 MG/0.4 ML SYR SC (16:05)
[2018-05-23] MEDS: Normal Saline 1,000 ML 75 ML IV (16:06)
[2018-05-23] MEDS: Normal Saline Flush 10 ML SYR IVP (16:06)
--- NOTE | 2018-05-23 16:18 | PDOC.CMPRO ---
Care Management Progress Note S/O: Leticia was sitting up in bed when CM met with her. She is pleasant and open to conversation. Leticia reports some confusion over her HIPAA and AD documents though she reports accurately that her son is her POA. Leticia also reiterates that when she returns home she would like [facility] to transport her. A: 73 year old female admitted to [facility] 05/17/18 for Acute Alcohol Withdrawal, Alcoholic Ketoacidosis P: Leticia will return home, resume current supports [facility] RN/PT and follow up with her PCP. She will transport via [facility].
--- NOTE | 2018-05-23 16:57 | PGE_ITS ---
Assessment and Plan (1) Alcohol withdrawal: Current visit: Yes Status: Chronic Recurrent admissions for acute withdrawl in known alcoholic woman who abruptly stops drinking at home. CIWA scores have been declining and now >96 hours following admission. Discontinued CIWA protocol. (2) Hypertension: Current visit: Yes Status: Acute Poorly controlled and recurrent problem. Currently appears improved and at goal, but with slightly increasing creatinine. ARB discontinued yesterday, and Spironolactone dose decreased. BB changed to Coreg previously, and CCB therapy initiated. Monitor and repeat kidney function in morning. Continue current regimen. BP is at goal. (3) Alcohol dependence: Current visit: Yes Status: Chronic Recurrent admissions for alcohol withdrawal. Has declined offers for multiple different strategies aimed at assisting her at home and as an outpatient in the past. (4) Gastritis: Current visit: Yes Status: Chronic May be on the basis of chronic ETOH abuse. Currently on BID H2 j luis as well as BID PPI therapy. (5) UTI (urinary tract infection): Current visit: Yes Status: Acute Klebsiella Pneumonia, but only at 50 -100,000 colonies/ML with negative LE and nitrite. Sensitive to Bactrim - discontinued after 3 days of therapy. (6) AMBER (acute kidney injury): Current visit: Yes Status: Acute In setting of initiation and maximization of ARB, as well as initiation and increase in dose and frequency of Spironolactone. Spironolactone frequency decreased, ARB discontinued. Creatinine this morning stopped rising and now stabilized. Hydrate gently and repeat creatinine in am. Patient was also on 3 days of TMP-SMX. (7) DVT prophylaxis: Current visit: No Status: Acute Daily SC Lovenox. Subjective Interval history since last seen: Appears oriented and appropriate again today. No evidence of significant hallucinations or tremors, and CIWA protocol discontinued on 05/22. Blood Pressure vastly improved. Creatinine remains higher than baseline but without further increase today. No overnight events reported. Remains afebrile. Exam Narrative Exam Narrative: General: Patient appears comfortable, AAOX3, NAD Psych: Normal mood and affect. Objective Objective Clinical Data: Abnormal lab results 05/23/18 Range/Units 07:08 Creatinine 1.45 H (0.55-1.02) mg/dL Glucose 101 H (70-100) mg/dL Calcium 10.2 H (8.5-10.1) mg/dL Vital Signs Temperature 36.6 C 05/23/18 07:30 Temperature Source Tympanic 05/23/18 07:30 Pulse 82 05/23/18 07:30 Pulse Rhythm Regular 05/23/18 08:06 Pulse 115 H 05/17/18 03:15 Respiratory Rate 17 05/23/18 07:30 Respiratory Effort Non-Labored 05/23/18 08:06 Respiratory Depth Normal 05/23/18 08:06 Respiratory Pattern Normal 05/23/18 08:06 Blood Pressure 126/85 05/23/18 07:30 Blood Pressure Mean 79 05/17/18 03:15 Pulse Oximetry 97 05/23/18 07:45 Oxygen Delivery Method Room Air 05/23/18 07:45 Oxygen Flow Rate 0 05/23/18 07:45 Pain Level 7 05/23/18 12:31 Comment 05/21/18 10:00 Intake & Output 05/22/18 05/23/18 05/23/18 23:59 11:59 23:59 Intake Total 460 / 460 600 / 600 Output Total 550 / 550 600 / 600 Balance -90 / -90 0 / 0 Intake: IV 10 Oral 450 / 450 600 / 600 Output: Urine 550 / 550 600 / 600 Other: Urine Color Yellow Yellow Urine Appearance Clear Clear Urine Odor Normal Comment mixed cont/inc pt voided approx 30 cc in hat, more in toilet Voiding Methods Toilet Toilet Toilet Laboratory Results WBC 9.00 k/cumm (4.4-10.8) 05/20/18 17:31 RBC 4.03 m/cumm (4.00-5.20) 05/20/18 17:31 Hgb 10.9 g/dL (12.0-15.5) L 05/20/18 17:31 Hct 34.5 % (36.0-46.0) L 05/20/18 17:31 MCV 85.6 fL (80-95) 05/20/18 17:31 MCH 27.0 pg (27.0-33.0) 05/20/18 17:31 MCHC 31.6 g/dL (32.0-36.0) L 05/20/18 17:31 RDW 15.5 % (11.7-14.6) H 05/20/18 17:31 Plt Count 193 x1000/uL (130-400) D 05/23/18 07:08 MPV 8.8 fL (8.0-11.0) 05/20/18 17:31 Immature Gran % 0.2 05/17/18 00:56 Neutrophils % 94.2 05/17/18 00:56 Lymphocytes % 2.3 05/17/18 00:56 Monocytes % 3.1 05/17/18 00:56 Eosinophils % 0.1 05/17/18 00:56 Basophils % 0.1 05/17/18 00:56 Absolute Neutrophils 11.76 k/cumm (1.2-6.7) H 05/17/18 00:56 Absolute Lymphocytes 0.29 k/cumm (1.2-3.4) L 05/17/18 00:56 Absolute Monocytes 0.39 k/cumm (0.11-0.7) 05/17/18 00:56 Absolute Eosinophils 0.01 k/cumm (0.0-0.7) 05/17/18 00:56 Absolute Basophils 0.01 k/cumm (0.0-0.2) 05/17/18 00:56 Sodium 137 mmol/L (136-145) 05/23/18 07:08 Potassium 4.6 mmol/L (3.5-5.1) 05/23/18 07:08 Chloride 104 mmol/L (98-107) 05/23/18 07:08 Carbon Dioxide 25.2 mmol/L (21.0-32.0) 05/23/18 07:08 Anion Gap 7.8 mmol/L (3-11) 05/23/18 07:08 BUN 12 mg/dL (7-18) 05/23/18 07:08 Creatinine 1.45 mg/dL (0.55-1.02) H 05/23/18 07:08 Estimated GFR/1.73 m2 35.50 (mL/min/1.73m2) 05/23/18 07:08 Glucose 101 mg/dL (70-100) H 05/23/18 07:08 Calcium 10.2 mg/dL (8.5-10.1) H 05/23/18 07:08 Magnesium 1.9 mg/dL (1.8-2.4) 05/23/18 07:08 Total Bilirubin 1.6 mg/dL (0.2-1.0) H 05/17/18 00:56 Conjugated Bilirubin 0.33 mg/dL (0.00-0.20) H 05/17/18 00:56 AST 39 U/L (15-37) H 05/17/18 00:56 ALT 40 U/L (12-78) 05/17/18 00:56 Alkaline Phosphatase 149 U/L (46-116) H 05/17/18 00:56 Troponin I 0.02 ng/mL (0.00-0.06) 05/17/18 00:56 Total Protein 7.5 g/dL (6.4-8.2) 05/17/18 00:56 Albumin 4.0 g/dL (3.4-5.0) 05/17/18 00:56 Lipase 84 U/L (73-393) 05/17/18 00:56 Urine Color Straw (Yellow) 05/17/18 01:05 Urine Clarity Clear 05/17/18 01:05 Urine pH 5.5 (5-8) 05/17/18 01:05 Ur Specific [place] 1.025 (1.005-1.025) 05/17/18 01:05 Urine Protein 100 mg/dL (Negative) H 05/17/18 01:05 Urine Ketones >=160 mg/dL (Negative) 05/17/18 01:05 Urine Blood Negative (Negative) 05/17/18 01:05 Urine Nitrite Negative (Negative) 05/17/18 01:05 Urine Bilirubin Negative (Negative) 05/17/18 01:05 Urine Urobilinogen 0.2 EU/dL (Up TO 0.2) 05/17/18 01:05 Ur Leukocyte Esterase Negative (Negative) 05/17/18 01:05 Urine RBC 0-2 (0-2) 05/17/18 01:05 Urine WBC 10-20 HPF (0-5) 05/17/18 01:05 Ur Epithelial Cells Few HPF (Negative) 05/17/18 01:05 Urine Crystals Negative HPF (Negative) 05/17/18 01:05 Urine Bacteria Many HPF (Negative) 05/17/18 01:05 Urine Casts 3-5 hyaline LPF (Negative) 05/17/18 01:05 Urine Mucus Trace (Negative) 09/19/18 01:05 Urine Other Rare transitional (Negative) 05/17/18 01:05 Ur Culture Indicated? Yes 05/17/18 01:05 Urine Glucose 100 mg/dL (Negative) 05/17/18 01:05 Ethyl Alcohol < 3.0 mg/dL (<3) 05/17/18 00:56
[2018-05-23] MEDS: traZODone 100 MG TAB PO (21:25)
[2018-05-23] MEDS: traMADol 50 MG TAB PO (21:25)
[2018-05-23 23:00] VITALS: BP 145/81; PULSE 86; RESP 16; TEMP 36.5; O2SAT 98
[2018-05-24] MEDS: Normal Saline 1,000 ML 75 ML IV (05:04)
[2018-05-24 07:41] VITALS: O2SAT 98
[2018-05-24 07:42] LABS: Anion Gap 5.2 mmol/L (3-11); BUN 14 mg/dL (7-18); CO2 27.8 mmol/L (21.0-32.0); CREATININE 1.33 mg/dL (0.55-1.02); Calcium 9.7 mg/dL (8.5-10.1); Chloride 105 mmol/L (98-107); Estimated GFR 39.22 (mL/min/1.73m2); Glucose 99 mg/dL (70-100); Magnesium 1.6 mg/dL (1.8-2.4); Potassium 4.7 mmol/L (3.5-5.1); Sodium 138 mmol/L (136-145)
[2018-05-24 07:50] VITALS: BP 163/84; PULSE 84; RESP 18; TEMP 36.4; O2SAT 99
[2018-05-24] MEDS: Acetaminophen 325 MG TAB 650 MG PO (08:48)
[2018-05-24] MEDS: Gabapentin 100 MG CAP 200 MG PO (08:49)
[2018-05-24] MEDS: Carvedilol 6.25 MG TAB PO (08:54)
[2018-05-24] MEDS: Folic Acid 1 MG TAB PO (08:54)
[2018-05-24] MEDS: Magnesium Oxide 400 MG TAB PO ×2 (08:54→14:54)
[2018-05-24] MEDS: Naltrexone 50 MG TAB PO (08:54)
[2018-05-24] MEDS: Cyanocobalamin 500 MCG TAB 1000 MCG PO (08:55)
[2018-05-24] MEDS: Spironolactone 25 MG TAB 50 MG PO (08:55)
[2018-05-24] MEDS: Venlafaxine 150 MG CAPCR PO (08:56)
[2018-05-24] MEDS: Pantoprazole 40 MG TABCR PO (08:56)
[2018-05-24] MEDS: Multivitamin TAB 1 TAB PO (08:56)
[2018-05-24] MEDS: Venlafaxine 37.5 MG CAPCR PO (08:56)
[2018-05-24] MEDS: Potassium Chloride 20 MEQ TABCR PO (08:56)
[2018-05-24] MEDS: Thiamine 100 MG TAB PO (08:56)
[2018-05-24] MEDS: amLODIPine 10 MG TAB PO (08:56)
[2018-05-24] MEDS: MAGNESIUM SULFATE 2 GM/50 ML BAG IVPB (10:52)
[2018-05-24] MEDS: Normal Saline Flush 10 ML SYR IVP (10:53)
--- NOTE | 2018-05-24 13:01 | DSE_ITS ---
Date of service: 05/24/18 Time of Service: 12:53 DS: Diagnosis Discharge Diagnosis (1) Alcohol withdrawal: Status: Chronic (2) Hypertension: Status: Acute (3) Alcohol dependence: Status: Chronic (4) Gastritis: Status: Chronic (5) UTI (urinary tract infection): Status: Acute (6) AMBER (acute kidney injury): Status: Acute Discharge Plan Disposition Patient Disposition: HOME W/HOME HEALTH SERVICE Condition: Improving Discharge Details Chief Complaint: Dizzy/Sync Reason For Visit: ACUTE ALCOHOL WITHDRAWAL, ALCOHOLIC KETOACIDOSIS Admit Date/Time: 05/17/18 02:35 Admit Provider: Saeed Cosme Attending Provider: Saeed Cosme Primary Care Provider: Lavelle Galindo ED Provider: Megan Foster Hospital Course Hospital Course: CC: Nausea and Vomiting HPI: 73-year-old female with history of alcohol abuse and innumerable hospital visits. She came to the emergency room this morning reporting episodes of vomiting after having been drinking up to 4 days prior to admission. In the emergency room she was noted to have a sinus tachycardia and hypokalemia and hypomagnesemia. She was given IV fluids and electrolyte replacement she was also given Ativan and Zofran. She was admitted for further evaluation and management of potential acute alcohol withdrawl, which is a diagnosis that she has been admitted for on numerous prior occasions. Hospital Course by Problem List: (1) Alcohol withdrawal: Current visit: Yes Status: Chronic Recurrent admissions for acute withdrawl in known alcoholic woman who abruptly stops drinking at home. CIWA scores have been declining and now >96 hours following admission. Discontinued CIWA protocol. (2) Hypertension: Current visit: Yes Status: Acute Poorly controlled and recurrent problem. Currently appears improved, with decreasing creatinine. ARB discontinued 2 days ago, and Spironolactone dose decreased. BB changed to Coreg previously, and CCB therapy initiated. Monitor and repeat kidney function in 2-3 days. Continue current regimen. BP is at goal. (3) Alcohol dependence: Current visit: Yes Status: Chronic Recurrent admissions for alcohol withdrawal. Has declined offers for multiple different strategies aimed at assisting her at home and as an outpatient in the past. Did not have significant withdrawl symptoms during this hospitalization. (4) Gastritis: Current visit: Yes Status: Chronic May be on the basis of chronic ETOH abuse. Currently on BID H2 j luis as well as BID PPI therapy. (5) UTI (urinary tract infection): Current visit: Yes Status: Acute Klebsiella Pneumonia, but only at 50 -100,000 colonies/ML with negative LE and nitrite. Sensitive to Bactrim - discontinued after 3 days of therapy. (6) AMBER (acute kidney injury): Current visit: Yes Status: Acute In setting of initiation and maximization of ARB, as well as initiation and increase in dose and frequency of Spironolactone. Spironolactone frequency decreased, ARB discontinued. Creatinine this morning improved with gentle hydration and above measures. Patient was also on 3 days of TMP-SMX. (7) Disposition Discharge home with Home Health for VNA and PT. Follow-up with PCP in one week. Repeat BMP in 2-3 days. Home Meds and New Rx's Prescriptions: New venlafaxine [Effexor XR] 37.5 mg Capsule,Extended Release 24hr 37.5 mg PO DAILY Qty: 30 RF: 0 carvedilol [Coreg] 6.25 mg Tablet 6.25 mg PO BID Qty: 60 RF: 0 venlafaxine 150 mg Capsule,Extended Release 24hr 150 mg PO DAILY Qty: 30 RF: 0 spironolactone 25 mg Tablet 50 mg PO DAILY Qty: 30 RF: 0 potassium chloride [Klor-Con M20] 20 mEq Tablet,Er Particles/Crystals 20 meq PO BID Qty: 60 RF: 0 magnesium oxide 400 mg (241.3 mg magnesium) Tablet 400 mg PO TID Qty: 120 RF: 0 trazodone 100 mg Tablet 100 mg PO HS PRN PRNQty: 30 RF: 0 amlodipine 10 mg Tablet 10 mg PO DAILY Qty: 30 RF: 0 pantoprazole 40 mg Tablet,Delayed Release (Dr/Ec) 40 mg PO BID@0730,2000 Qty: 60 RF: 0 ranitidine HCl 150 mg Tablet 150 mg PO BID Qty: 60 RF: 0 No Action cyanocobalamin (vitamin B-12) [Vitamin B-12] 1,000 MCG tablet 1,000 mcg PO DAILY Qty: 100 RF: 4 fluticasone 16 GM spray,suspension 1 spr NS daily prn Qty: 3 RF: 3 cholecalciferol (vitamin D3) 1,000 UNIT tablet 2 tab PO DAILY Qty: 100 RF: 3 gabapentin 100 MG capsule 2 tab PO BID Qty: 360 RF: 3 magnesium oxide 400 MG tablet 400 mg PO BID Qty: 180 RF: 3 folic acid 1 MG tablet 1 mg PO DAILY Qty: 90 RF: 3 ranitidine HCl 150 MG tablet 150 mg PO HS Qty: 30 RF: 2 venlafaxine 37.5 MG tablet 37.5 mg PO DAILY Qty: 90 RF: 3 venlafaxine 150 MG tablet extended release 24hr 150 mg PO DAILY Qty: 90 RF: 3 naltrexone 50 MG tablet 50 mg PO DAILY Qty: 30 RF: 2 pyridoxine (vitamin B6) [Vitamin B-6] 50 MG tablet 50 mg PO nightly Qty: 60 RF: 4 thiamine mononitrate (vit B1) 100 MG tablet 100 mg PO QAM Qty: 90 RF: 3 Metoprolol Succinate 50 MG TAB.ER.24H 50 mg PO DAILY Qty: 30 RF: 2 trazodone 100 MG tablet 100 mg PO hs prn RF: 0 potassium chloride 20 MEQ tablet extended release 20 meq PO BID Qty: 180 RF: 3 loperamide 2 MG capsule 2 mg PO QLOOSE PRNQty: 30 RF: 0 losartan 50 MG tablet 100 mg PO DAILY Qty: 30 RF: 0 polyethylene glycol 3350 17 GM powder in packet 17 gm PO DAILY PRN PRN (Reason: Constipation) RF: 0 tramadol 50 MG tablet 50 mg PO Q6H PRN PRNRF: 0 acetaminophen [Mapap Extra Strength] 500 MG tablet 500 mg PO Q6H RF: 0 spironolactone 25 MG tablet 25 mg PO DAILY RF: 0 pantoprazole 40 MG tablet,delayed release (DR/EC) 40 mg PO BID@729,1999 RF: 0 thiamine mononitrate (vit B1) [Vitamin B-1 (mononitrate)] 100 MG tablet 100 mg PO DAILY RF: 0 multivitamin [Multiple Vitamins] 1 TAB tablet 1 tab PO DAILY Qty: 0 RF: 0 ondansetron HCl 4 MG tablet 4 mg PO Q6H PRN PRNQty: 15 RF: 0 Discharge Instructions Instructions: Abuse of Alcohol (DC), Chronic Hypertension (DC) Additional Instructions: Please see your primary care doctor in 1 week Please have blood work performed in 2-3 days Referrals: Lavelle Galindo [Primary Care Provider] - 05/31/18 3:00 pm Activity:: No Strenuous Activity Equipment/Supplies:: No Equipment Needed Discharge Orders Discharge Orders: Discharge Order (Routine); Ordered 05/24/18 Ordered By: Robert Medina Other Ambulatory Orders: Basic Metabolic Panel (Routine) Timeframe: 2 Days Location: Determined by Patient Ordered By: Robert Medina Exam Narrative Exam Narrative: General: Patient appears comfortable, AAOX3, NAD Neck: Supple CV: Regular, nontachycardic, S1S2, No rubs, murmurs, or gallops. Pulmonary: Clear to auscultation bilaterally, no crackles, wheezing, or rhonchi Abdomen: + Bowel Sounds, soft, nontender, nondistended Vascular: No lower extremity edema Neurologic: CN II-XII grossly intact. No focal deficits. Psych: Normal mood and affect. DS: Data Vitals/I&O Vitals and I&O: Vital Signs Temperature 36.4 C L 05/24/18 07:50 Temperature Source Tympanic 05/24/18 07:50 Pulse 84 05/24/18 07:50 Pulse Rhythm Regular 05/24/18 08:57 Pulse 115 H 05/17/18 03:15 Respiratory Rate 18 05/24/18 07:50 Respiratory Effort Non-Labored 05/24/18 08:57 Respiratory Depth Normal 05/24/18 08:57 Respiratory Pattern Normal 05/24/18 08:57 Blood Pressure 163/84 H 05/24/18 07:50 Blood Pressure Mean 79 05/17/18 03:15 Pulse Oximetry 99 05/24/18 07:50 Oxygen Delivery Method Room Air 05/24/18 07:50 Oxygen Flow Rate 0 05/24/18 07:50 Pain Level 7 05/24/18 08:48 Comment 05/21/18 10:00 Intake & Output 05/23/18 05/24/18 05/24/18 23:59 11:59 23:59 Intake Total 240 / 240 1332.5 / 1332.5 Output Total 1150 / 1150 1050 / 1050 Balance -910 / -910 282.5 / 282.5 Intake: IV 972.5 / 972.5 Oral 240 / 240 360 / 360 Output: Urine 1150 / 1150 1050 / 1050 Other: Urine Color Pale Yellow Yellow Urine Appearance Clear Clear Urine Odor Normal Normal Stool Size Moderate Small Stool Characteristics Liquid Brown Voiding Methods Toilet Toilet Diaper Incontinent Pending studies at discharge: WBC 9.00 k/cumm (4.4-10.8) 05/20/18 17:31 RBC 4.03 m/cumm (4.00-5.20) 05/20/18 17:31 Hgb 10.9 g/dL (12.0-15.5) L 05/20/18 17:31 Hct 34.5 % (36.0-46.0) L 05/20/18 17:31 MCV 85.6 fL (80-95) 05/20/18 17:31 MCH 27.0 pg (27.0-33.0) 05/20/18 17:31 MCHC 31.6 g/dL (32.0-36.0) L 05/20/18 17:31 RDW 15.5 % (11.7-14.6) H 05/20/18 17:31 Plt Count 193 x1000/uL (130-400) D 05/23/18 07:08 MPV 8.8 fL (8.0-11.0) 05/20/18 17:31 Immature Gran % 0.2 05/17/18 00:56 Neutrophils % 94.2 05/17/18 00:56 Lymphocytes % 2.3 05/17/18 00:56 Monocytes % 3.1 05/17/18 00:56 Eosinophils % 0.1 05/17/18 00:56 Basophils % 0.1 05/17/18 00:56 Absolute Neutrophils 11.76 k/cumm (1.2-6.7) H 05/17/18 00:56 Absolute Lymphocytes 0.29 k/cumm (1.2-3.4) L 05/17/18 00:56 Absolute Monocytes 0.39 k/cumm (0.11-0.7) 05/17/18 00:56 Absolute Eosinophils 0.01 k/cumm (0.0-0.7) 05/17/18 00:56 Absolute Basophils 0.01 k/cumm (0.0-0.2) 05/17/18 00:56 Sodium 138 mmol/L (136-145) 05/24/18 06:20 Potassium 4.7 mmol/L (3.5-5.1) 05/24/18 06:20 Chloride 105 mmol/L (98-107) 05/24/18 06:20 Carbon Dioxide 27.8 mmol/L (21.0-32.0) 05/24/18 06:20 Anion Gap 5.2 mmol/L (3-11) 05/24/18 06:20 BUN 14 mg/dL (7-18) 05/24/18 06:20 Creatinine 1.33 mg/dL (0.55-1.02) H 05/24/18 06:20 Estimated GFR/1.73 m2 39.22 (mL/min/1.73m2) 05/24/18 06:20 Glucose 99 mg/dL (70-100) 05/24/18 06:20 Calcium 9.7 mg/dL (8.5-10.1) 05/24/18 06:20 Magnesium 1.6 mg/dL (1.8-2.4) L 05/24/18 06:20 Total Bilirubin 1.6 mg/dL (0.2-1.0) H 05/17/18 00:56 Conjugated Bilirubin 0.33 mg/dL (0.00-0.20) H 05/17/18 00:56 AST 39 U/L (15-37) H 05/17/18 00:56 ALT 40 U/L (12-78) 05/17/18 00:56 Alkaline Phosphatase 149 U/L (46-116) H 05/17/18 00:56 Troponin I 0.02 ng/mL (0.00-0.06) 05/17/18 00:56 Total Protein 7.5 g/dL (6.4-8.2) 05/17/18 00:56 Albumin 4.0 g/dL (3.4-5.0) 05/17/18 00:56 Lipase 84 U/L (73-393) 05/17/18 00:56 Urine Color Straw (Yellow) 05/17/18 01:05 Urine Clarity Clear 05/17/18 01:05 Urine pH 5.5 (5-8) 05/17/18 01:05 Ur Specific [place] 1.025 (1.005-1.025) 05/17/18 01:05 Urine Protein 100 mg/dL (Negative) H 05/17/18 01:05 Urine Ketones >=160 mg/dL (Negative) 05/17/18 01:05 Urine Blood Negative (Negative) 05/17/18 01:05 Urine Nitrite Negative (Negative) 05/17/18 01:05 Urine Bilirubin Negative (Negative) 05/17/18 01:05 Urine Urobilinogen 0.2 EU/dL (Up TO 0.2) 05/17/18 01:05 Ur Leukocyte Esterase Negative (Negative) 05/17/18 01:05 Urine RBC 0-2 (0-2) 05/17/18 01:05 Urine WBC 10-20 HPF (0-5) 05/17/18 01:05 Ur Epithelial Cells Few HPF (Negative) 05/17/18 01:05 Urine Crystals Negative HPF (Negative) 05/17/18 01:05 Urine Bacteria Many HPF (Negative) 05/17/18 01:05 Urine Casts 3-5 hyaline LPF (Negative) 05/17/18 01:05 Urine Mucus Trace (Negative) 05/17/18 01:05 Urine Other Rare transitional (Negative) 05/17/18 01:05 Ur Culture Indicated? Yes 05/17/18 01:05 Urine Glucose 100 mg/dL (Negative) 05/17/18 01:05 Ethyl Alcohol < 3.0 mg/dL (<3) 05/17/18 00:56 Labs on day of discharge: Labs from last 24 hours 05/24/18 05/24/18 06:20 06:20 Sodium 138 Potassium 4.7 Chloride 105 Carbon Dioxide 27.8 Anion Gap 5.2 BUN 14 Creatinine 1.33 H Estimated GFR/1.73 m2 39.22 Glucose 99 Calcium 9.7 Magnesium 1.6 L Additional Comments Exam(s) a RAD:XR portable chest AP SYMPTOM/DIAGNOSIS: VOMITING, DIZZINESS PORTABLE AP CHEST: The heart is not enlarged. The lungs are grossly clear and well expanded. CONCLUSION: No evidence of acute disease. Old healed rib fractures noted bilaterally.
--- NOTE | 2018-05-24 13:19 | PDOC.CMDIS ---
- If Service Date Differs Date of service: 05/24/18 Time of Service: 13:19 LACE Index Scoring Tool - Questions: Length of Stay (in days): 7 - 13 Acuity (Admit via E.D.?): Yes E.D. Visits: 15 - Answers: Total Score: 12 Risk of Readmission: High Risk Care Management Discharge Reason for Hospitalization: Alcohol abuse Discharge Plan: Leticia will return home today with a resumption of home health RN services. has notified DEEPKIA Blanco, in regards to Leticia's discharge. CAPO has contacted [facility] and spoken with Gracia, transportation has been arranged for 1430. notified Darlene, psychiatric secretary, of the above whom will alert nursing.Leticia will F/U with PCP and plan of care as prescribed. Patient/Family Education Needs: Review DC instructions, any limitations, and discuss DC planning discussion. Services Needed at Discharge: Home Health Care Services (RN), Transportation (RCT)
--- NOTE | 2018-05-24 13:21 | PDOC.HHF2F ---
1. Encounter Date and Reason I certify that LINDA MONSIVAIS was seen by Robert Medina on 05/24/18 and that I had a [id number] encounter with this patient that meets the physician face to face encounter requirements. 2. Clinical Findings Supporting Skilled Need and Homebound Status I certify that home health services are medically necessary, include either intermittent custodial and/or physical/speech therapy, and that this patient is homebound in that absences from the home require considerable and taxing effort and are infrequent or of short duration, or are attributable to the need to receive medical care. [X] (a) Attached documentation from encounter provides clinical findings supporting skilled need and homebound status (including what assistance patient requires to leave the home). The encounter with the patient was in whole, or in part, for the following medical condition, which is the primary reason for home health care: ACUTE ALCOHOL WITHDRAWAL, ALCOHOLIC KETOACIDOSIS Long Term: Med Checks, Repeat blood work (BMP) in 2 days. Physical Therapy: Deconditioning following hospitalization. Speech Therapy: Homebound: 3. Certification and Authentication I certify that I composed the above information based on my clinical judgement relating to this patient's medical condition and, if applicable, clinical findings communicated to me by the NPP or inpatient physician who performed the Home Health Referral. All further orders will be obtained through (Community Based Physician - PCP)
--- NOTE | 2018-05-24 13:24 | CMDISCH_ITS ---
- If Service Date Differs Date of service: 05/24/18 Time of Service: 13:19 LACE Index Scoring Tool - Questions: Length of Stay (in days): 7 - 13 Acuity (Admit via E.D.?): Yes E.D. Visits: 15 - Answers: Total Score: 12 Risk of Readmission: High Risk Care Management Discharge Reason for Hospitalization: Alcohol abuse Discharge Plan: Leticia will return home today with a resumption of home health RN services. has notified DEEPIKA Blanco, in regards to Leticia's discharge. CAPO has contacted [facility] and spoken with Gracia, transportation has been arranged for 1430. notified Darlene, medical secretary teacher, of the above whom will alert nursing.Leticia will F/U with PCP and plan of care as prescribed. Patient/Family Education Needs: Review DC instructions, any limitations, and discuss DC planning discussion. Services Needed at Discharge: Home Health Care Services (RN), Transportation ( RCT)
== END 2018-05-24 15:04 | disposition home health service (06) | DRG 897 ==
LOC: ER 03:18 → MS 09:39
PROVIDERS: Family Medicine; Internal Medicine; Admitting Provider General Practice; Emergency Provider Physician Assistant; PCP Family Medicine; Visit Provider Internal Medicine
DX: F10.239 Alcohol dependence with withdrawal, unspecified (principal); N39.0 Urinary tract infection, site not specified; N17.9 Acute kidney failure, unspecified; E87.2 Acidosis; B96.1 Klebsiella pneumoniae [K. pneumoniae] as the cause of diseases classified elsewhere; R51 Headache; Z16.11 Resistance to penicillins; K29.20 Alcoholic gastritis without bleeding; Y90.0 Blood alcohol level of less than 20 mg/100 ml; R00.0 Tachycardia, unspecified; E87.6 Hypokalemia; E83.42 Hypomagnesemia; I10 Essential (primary) hypertension; E86.0 Dehydration
CPT/HCPCS: 36415; 80048; 80053; 80076; 83690; 85027; 87077; 93005; 96361; 96365; 96367; 96368; 96375; 96376; 99222; 99232; 99239; 99285; J1650; 71045; 80320; 81003; 81015; 83735; 84484; 85025; 85049; 87086; 87186; 93010; J2060; J2405; J3480

== ENCOUNTER 2018-06-11 11:42 | Inpatient (IN) | payer OTHER, SELFPAY ==
[2018-06-11 11:48] VITALS: BP 189/102; PULSE 118; RESP 20; TEMP 36.2; O2SAT 95
--- NOTE | 2018-06-11 11:52 | DI.CT_ITS ---
SYMPTOMS/DIAGNOSIS: S/P FALL, ? ACUTE ABNORMALITY, ? SHOULDER/RIB FRACTURE CERVICAL SPINE CT: CT examination of the cervical spine was performed without contrast administration. Tracheolaryngeal structures appear intact. No cervical mass or adenopathy seen. Severe degenerative changes of the cervical spine noted. No acute fracture identified. CONCLUSION: No evidence of acute cervical fracture. CRANIAL CT: Noncontrast cranial CT was performed. There is moderate generalized cerebral atrophy. There is no evidence of acute intracranial hemorrhage, mass effect or midline shift. There may be small bilateral lacunar infarcts. Orbital and temporal bone structures appear intact. Visualized paranasal sinuses are well aerated. No calvarial fractures seen. CONCLUSION: No evidence of acute intracranial injury. CHEST, ABDOMEN AND PELVIS CT: CT examination of the chest, abdomen and pelvis was performed with a bolus infusion of 100 cc of Omnipaque 350. There is a 12 mm in diameter rounded right apical intrapulmonary radiodensity, which is apparently unchanged in size in comparison with previous CT of 08/27/2017. CT followup recommended in six to 12 months. No evidence of acute consolidation, pulmonary contusion, pleural effusion or pneumothorax. No evidence of vascular injury in the thorax. No evidence of pulmonary embolic disease. No mediastinal or hilar mass or adenopathy seen. Multiple rib fractures seen bilaterally, which appear to be old. No additional bony abnormalities seen. No vascular injury identified on scanning of the abdomen or pelvis. Hepatic steatosis noted. Liver and spleen otherwise unremarkable in appearance, although some image degradation from motion is noted. The gallbladder and bile ducts are CT normal, as is the pancreas. Bilateral renal cysts appear to be present. No evidence of acute renal or adrenal injury. No abdominal or pelvic adenopathy seen. No significant abdominal wall hernia seen. No evidence of bowel injury or bowel obstruction. No bony injury identified on scanning of the chest, abdomen and pelvis. A rounded presacral mass measures about 26 mm in diameter and appears unchanged from previous CT of 08/27/2017. CONCLUSION: No evidence of acute traumatic injury. Right upper lobe lung lesion is probably stable from 08/27/2017. Chest CT followup recommended in six to 12 months.
--- NOTE | 2018-06-11 11:55 | ED.GENADUL_ITS ---
Discharge Plan Disposition Patient Disposition: [facility] INPATIENT Condition: Stable Discharge Details Chief Complaint: GenMedical Clinical Impression: Multiple fractures of ribs of left side, Alcohol intoxication, Fall at home Admit Date/Time: 06/11/18 16:45 Admit Provider: Robert Medina Attending Provider: Robert Medina Primary Care Provider: Lavelle Galindo ED Provider: Megan Foster Discharge Data Discharge Date/Time-TO BE ENTERED AT DEPARTURE: 06/11/18 16:38 Medical Decision Making 73-year-old female with history of chronic alcoholism and frequent falls and frequent ED visits who presents for fall at home while intoxicated. Unsure if all last night of this morning. EMS found patient on ground. Blood pressure hypertensive, heart rate tachycardic, remainder vitals within normal limits. She has pain with range of motion of her left upper extremity which is chronic and there does not appear to be any acute deformity. She is also complaining of pain across her lower back and lower abdomen. Abdomen is otherwise soft and minimally tender in suprapubic region. Cervical spine tender to palpation. No midline thoracic or lumbar spine tenderness. No evidence of trauma to chest or abdomen. EKG notes a rate of 107, sinus tachycardia, no acute ST elevation or depression. QTc 464. QRS 96. T wave inversion in lead III and aVF which is seen in previous EKG. 1520 --labs reviewed and note white blood cell count 4.39. Anion gap 15.6. Magnesium 1.7. Urinalysis notes 20-50 WBCs, few epis, negative leukocyte esterase and nitrate, urine culture sent. CT head notes suggestion of minimally displaced nasal bone fractures, no acute skull fracture or intracranial process, negative CT C-spine. CT chest notes nondisplaced fractures of left fifth through eighth posterior lateral ribs. No pneumothorax. CT abdomen no acute process. Pt has significant pain with movement. Will admit for intractable pain in intoxicated pt with multiple rib fractures. 1545 --discussed with hospitalist - accepts pt for admission. HPI General Mode of arrival: EMS . Date/Time Provider Initiated Documentation: 06/11/18 11:52 . Limitations to Documentation: other (intoxicated) . Information obtained by: patient and EMS . HPI Narrative: Patient is a 73-year-old female who was sent to the ED for fall. Patient appears intoxicated and is a poor historian. She states she fell last night while walking. She is complaining of pain in her neck, left shoulder and lower abdomen but states this is because she has to urinate. EMS states that they believe patient's sister called them for patient found on ground at the house, unsure of how long she was lying there. Past medical history: Depression, hypertension, high cholesterol, alcohol abuse , chronic neck and back pain and chronic left shoulder pain Surgical history: Bladder repair, cataracts Social history: Smokes tobacco, daily alcohol use Medications: See list Allergies: See list Related Data Home Medications Medication Instructions Recorded Confirmed cholecalciferol (vitamin D3) 2 tab PO DAILY #100 tab-cap 09/03/16 06/11/18 cyanocobalamin (vitamin B-12) 1,000 mcg PO DAILY #100 tab-cap 09/03/16 06/11/18 [Vitamin B-12] fluticasone 1 spr NS daily prn #3 bottle 09/03/16 06/11/18 gabapentin 2 tab PO BID #360 cap 03/25/17 06/11/18 folic acid 1 mg PO DAILY #90 tab 07/26/17 06/11/18 naltrexone 50 mg PO DAILY #30 tab-cap 11/04/17 06/11/18 pyridoxine (vitamin B6) [Vitamin 50 mg PO nightly #60 cap 11/04/17 06/11/18 B-6] thiamine mononitrate (vit B1) 100 mg PO QAM #90 tab 11/04/17 06/11/18 venlafaxine 37.5 mg PO DAILY #90 tab-cap 11/04/17 06/11/18 ondansetron HCl 4 mg PO Q6H PRN PRN #15 tab-cap 12/21/17 06/11/18 potassium chloride 20 meq PO BID #180 tab-cap 03/30/18 06/11/18 acetaminophen [Mapap Extra 500 mg PO Q6H tab 04/17/18 06/11/18 Strength] polyethylene glycol 3350 17 gm PO DAILY PRN PRN packet 04/17/18 06/11/18 tramadol 50 mg PO Q6H PRN PRN tab 04/17/18 06/11/18 amlodipine 10 mg PO DAILY #30 tab 05/24/18 06/11/18 carvedilol [Coreg] 6.25 mg PO BID #60 tab 05/24/18 06/11/18 magnesium oxide 400 mg PO TID #120 tab 05/24/18 06/11/18 pantoprazole 40 mg PO BID@729,1999 #60 tab 05/24/18 06/11/18 ranitidine HCl 150 mg PO BID #60 tab 05/24/18 06/11/18 spironolactone 50 mg PO DAILY #30 tab 05/24/18 06/11/18 trazodone 100 mg PO HS PRN PRN #30 tab 05/24/18 06/11/18 venlafaxine 150 mg PO DAILY #30 cap 05/24/18 06/11/18 Previous Rx's Medication Instructions Recorded folic acid 1 mg PO DAILY #90 tab 07/26/17 naltrexone 50 mg PO DAILY #30 tab-cap 11/04/17 pyridoxine (vitamin B6) [Vitamin 50 mg PO nightly #60 cap 11/04/17 B-6] thiamine mononitrate (vit B1) 100 mg PO QAM #90 tab 11/04/17 venlafaxine 37.5 mg PO DAILY #90 tab-cap 11/04/17 ondansetron HCl 4 mg PO Q6H PRN PRN #15 tab-cap 12/21/17 potassium chloride 20 meq PO BID #180 tab-cap 03/30/18 acetaminophen [Mapap Extra 500 mg PO Q6H tab 04/17/18 Strength] polyethylene glycol 3350 17 gm PO DAILY PRN PRN packet 04/17/18 tramadol 50 mg PO Q6H PRN PRN tab 04/17/18 amlodipine 10 mg PO DAILY #30 tab 05/24/18 carvedilol [Coreg] 6.25 mg PO BID #60 tab 05/24/18 magnesium oxide 400 mg PO TID #120 tab 05/24/18 pantoprazole 40 mg PO BID@30,1999 #60 tab 05/24/18 ranitidine HCl 150 mg PO BID #60 tab 05/24/18 spironolactone 50 mg PO DAILY #30 tab 05/24/18 trazodone 100 mg PO HS PRN PRN #30 tab 05/24/18 venlafaxine 150 mg PO DAILY #30 cap 05/24/18 Allergies Allergy/AdvReac Type Severity Reaction Status Date / Time Penicillins Allergy Mild Rash Unverified 05/17/18 00:43 ramipril Allergy Unknown ITCHING Unverified 05/17/18 00:43 meperidine [From Demerol] AdvReac Severe Nausea Unverified 05/17/18 00:43 bupropion AdvReac Mild GI upset Unverified 05/17/18 00:43 AMBER Inhibitors AdvReac Unknown COUGH Unverified 05/17/18 00:43 alendronate sodium AdvReac Unknown GI Distress Unverified 05/17/18 00:43 clarithromycin AdvReac Unknown intolerant Unverified 05/17/18 00:43 paroxetine AdvReac Unknown Diarrhea Unverified 05/17/18 00:43 General Stated Complaint: GenMedical JORDAN: 3 Review of Systems Review of Systems All systems reviewed & are unremarkable except as noted in HPI and below Constitutional Denies chills, Denies excessive sweating, Denies fatigue, Denies fever(s), Denies weakness and Denies weight loss Eyes Reports system reviewed and no additional complaints, except as docu and Denies blurry vision ENT Denies vertigo, Denies dizziness, Denies otalgia, Denies nasal congestion, Reports neck pain, Denies sore throat and Denies throat swelling Cardiovascular Denies chest pain, Denies syncope, Denies rapid heart rate and Denies dyspnea Respiratory Denies dyspnea Gastrointestinal Denies abdominal pain, Denies diarrhea and Denies vomiting Genitourinary Denies hematuria, Denies dysuria and Denies flank pain Musculoskeletal Denies back pain, Reports arthralgias (chronic L shoulder pain ), Denies joint swelling and Reports neck pain Integumentary/Breasts Denies lesions and Denies rash Neurologic Denies behavioral changes, Denies confusion, Denies vertigo, Denies dizziness, Denies syncope and Denies weakness Psychiatric Denies behavioral changes, Denies confusion and Denies depression Endocrine Denies excessive sweating and Denies fatigue Hematologic/Lymphatic Denies easy bruising and Denies lymphadenopathy Allergic/Immunologic Denies throat swelling PFSH Family History Mother No problems noted. Father No problems noted. Sister Personal history of malignant neoplasm Sister No problems noted. Grandfather Personal history of malignant neoplasm Grandfather Personal history of malignant neoplasm Grandmother Heart disease Acute ill-defined cerebrovascular disease Grandmother Personal history of malignant neoplasm Aunt Heart disease Aunt Heart disease Brother No problems noted. 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) Headache (Chronic) Gastritis (Chronic) Wernicke encephalopathy (Chronic) GERD (gastroesophageal reflux disease) (Chronic) Falling (Chronic) Alcohol dependence (Chronic) Anemia (Chronic) Alcohol abuse Depression Essential hypertension Hyperlipidemia Osteoarthritis Sciatica Urinary incontinence Social History Smoking/Tobacco Use Status: Former Tobacco Use Surgical History Bladder Surgery Colonoscopy - MAC (01/28/17) EGD - MAC (12/20/16) Ligation of fallopian tube Repair bladder injury, simple Exam Const General: disheveled and intoxicated appearing Orientation: alert, awake and oriented x3 HENMT Head: normal to inspection Ears: hearing grossly normal bilaterally, external ears normal and TM's normal bilaterally General nose exam: external nose normal Face and sinus: normal facial exam Mouth: oral mucosae normal Teeth and gingiva: dentition normal Throat: posterior oropharynx normal Eyes General: appearance normal, both eyes and all related structures Eyelids: eyelids normal Pupils: PERRL EOM: EOM intact bilaterally Neck Neck: normal visual inspection Lymphatic: no lymphadenopathy noted Chest Chest: normal inspection of the chest Resp Effort & Inspection: normal respiratory effort and able to speak in complete sentences Auscultation: clear to auscultation bilaterally Cardio Rate: regular rate Rhythm: regular rhythm GI Inspection: normal to inspection and no abdominal wall ecchymosis Palpation: soft, not firm, no guarding, no hepatosplenomegaly, no masses and tender suprapubicly Auscultation: normal bowel sounds Back/Spine/Pelvis Cervical Spine: cervical spinal tenderness Thoracic/Lumbar Spine: No thoracic spinal tenderness and No lumbar spinal tenderness Pelvis: no pain with anterior-posterior compression Skin General skin exam: no rashes or lesions noted Neuro General: alert, awake and oriented x3 Cognition: normal cognition Motor: muscle tone normal throughout and strength 5/5 throughout Sensory Exam: no sensory deficits noted Extrem General: normal to inspection, full ROM and normal capillary refill Psych Appearance: disheveled Mental Status: mental status grossly normal Speech and Movement: slurred speech (intoxicated) Affect: irritable affect Thought Process: normal Course Vital Signs Temperature 97.2 F L 06/11/18 11:48 Pulse 118 H 06/11/18 11:48 Respiratory Rate 20 06/11/18 11:48 Blood Pressure 189/102 H 06/11/18 11:48 Pulse Oximetry 95 06/11/18 11:48 Temperature 97.2 F L 06/11/18 11:48 Temperature Source Temporal Artery Scan 06/11/18 11:48 Pulse 118 H 06/11/18 11:48 Respiratory Rate 20 06/11/18 11:48 Blood Pressure 189/102 H 06/11/18 11:48 Blood Pressure Position Supine 06/11/18 11:48 Pulse Oximetry 95 06/11/18 11:48 Oxygen Delivery Method Room Air 06/11/18 11:48 Oxygen Flow Rate 0 06/11/18 11:48 Pain Level 10 06/11/18 11:48
[2018-06-11 12:21] LABS: Abs Immature Grans 0.01 k/cumm (0.0-0.09); Absolute Basophil Count 0.01 k/cumm (0.0-0.2); Absolute Eosinophil Count 0.06 k/cumm (0.0-0.7); Absolute Lymphocyte Count 1.42 k/cumm (1.2-3.4); Absolute Monocyte Count 0.27 k/cumm (0.11-0.7); Absolute Neutrophil Count 2.62 k/cumm (1.2-6.7); Basophils % 0.2; Eosinophils % 1.4; HCT 34.7 % (36.0-46.0); HGB 11.2 g/dL (12.0-15.5); Immature Grans % 0.2; Lymphocytes % 32.3; Mean Corp. HGB Concentration 32.3 g/dL (32.0-36.0); Mean Corpuscular Hemoglobin 31.1 pg (27.0-33.0); Mean Corpuscular Volume 96.4 fL (80-95); Mean Platelet Volume 8.9 fL (8.0-11.0); Monocytes % 6.2; Neutrophils % 59.7; Platelet Count 199 x1000/uL (130-400); RBC Distribution Width 17.8 % (11.7-14.6); White Blood Cell Count 4.39 k/cumm (4.4-10.8)
[2018-06-11 12:43] LABS: ALT 40 U/L (12-78); AST 41 U/L (15-37); Albumin 3.7 g/dL (3.4-5.0); Alkaline Phosphatase 119 U/L (46-116); Anion Gap 15.6 mmol/L (3-11); BUN 16 mg/dL (7-18); Bilirubin, Direct 0.27 mg/dL (0.00-0.20); Bilirubin, Total 1.1 mg/dL (0.2-1.0); CO2 24.4 mmol/L (21.0-32.0); CREATININE 0.98 mg/dL (0.55-1.02); Calcium 9.5 mg/dL (8.5-10.1); Chloride 102 mmol/L (98-107); Creatine Kinase 38 U/L (26-192); Estimated GFR 55.79 (mL/min/1.73m2); Glucose 121 mg/dL (70-100); Lipase 177 U/L (73-393); Magnesium 1.7 mg/dL (1.8-2.4); Potassium 3.5 mmol/L (3.5-5.1); Sodium 142 mmol/L (136-145); Total Protein 7.1 g/dL (6.4-8.2); Troponin I < 0.02 ng/mL (0.00-0.06)
--- NOTE | 2018-06-11 14:13 | DI.VRAD_ITS ---
EXAM: CT Head Without Intravenous Contrast CLINICAL HISTORY: 73 years old, female; Injury or trauma; Fall; Initial encounter; Blunt trauma (contusions or hematomas); Patient HX: S/P fall; Additional info: R/O acute abnormality TECHNIQUE: Axial computed tomography images of the head/brain without intravenous contrast. Coronal and sagittal reformatted images were created and reviewed. COMPARISON: No relevant prior studies available. FINDINGS: Mild diffuse atrophy. Chronic white matter changes of probable small vessel disease. No evidence of hemorrhage. No mass effect. No acute intracranial abnormality. No evidence of acute skull fracture. Irregularity of the nasal bones suggesting minimally displaced fractures. Impression: No evidence of acute intracranial process. Suggestion of minimally displaced fractures. EXAM: CT Cervical Spine Without Intravenous Contrast CLINICAL HISTORY: 73 years old, female; Injury or trauma; Fall; Initial encounter; Blunt trauma (contusions or hematomas); Patient HX: S/P fall; Additional info: R/O acute abnormality TECHNIQUE: Axial computed tomography images of the cervical spine without intravenous contrast. Coronal and sagittal reformatted images were created and reviewed. COMPARISON: FINDINGS: Diffuse degenerative disc and facet disease most pronounced at the C4-5 and C5-6 levels. Slight posterior positioning of C4 with respect to C3 and C6 with respect to C5. This is felt to be due to degenerative disc and facet disease. No evidence of acute fracture. Moderate increased density in the right upper lobe most likely representing scarring. Please see the final report for details as to the local protocol for followup if needed. Impression: No evidence of acute bony injury. Dictated and Authenticated by: Mendez Laird MD. Ordering:KATE FOWLER MD
[2018-06-11] MEDS: MAGNESIUM SULFATE 2 GM/50 ML BAG IVPB (14:26)
--- NOTE | 2018-06-11 14:28 | DI.VRAD_ITS ---
EXAM: CT Abdomen and Pelvis With Intravenous Contrast CLINICAL HISTORY: 73 years old, female; Injury or trauma; Fall; Initial encounter; Blunt; Generalized; Blunt trauma (contusions or hematomas); Patient HX: S/P fall; Additional info: R/O shoulder (l) / rib fracture, R/O abdominal abnormality/pelvis fracture TECHNIQUE: Axial computed tomography images of the abdomen and pelvis with intravenous contrast. Coronal and sagittal reformatted images were created and reviewed. COMPARISON: No relevant prior studies available. FINDINGS: Liver, spleen, and kidneys intact. No abnormal fluid collections. No extraluminal air. Diffuse degenerative disc and facet disease of the lumbar spine. No acute fracture of the abdomen and pelvis. Impression: No evidence of acute abdominal or pelvic trauma. EXAM: CT Chest With Intravenous Contrast CLINICAL HISTORY: 73 years old, female; Injury or trauma; Fall; Initial encounter; Blunt; Generalized; Blunt trauma (contusions or hematomas); Patient HX: S/P fall; Additional info: R/O shoulder (l) / rib fracture, R/O abdominal abnormality/pelvis fracture TECHNIQUE: Axial computed tomography images of the chest with intravenous contrast. Coronal and sagittal reformatted images were created and reviewed. COMPARISON: No relevant prior studies available. FINDINGS: Nondisplaced fractures of the left fifth through eighth posterior lateral ribs. Old appearing right sided rib fractures although the posterior lateral aspect of the ninth rib may be acute or subacute. No evidence of pneumothorax. Mild basilar atelectasis. No pleural effusion. Mediastinum appears unremarkable. Impression: Multiple left-sided rib fractures with a possible acute or subacute fracture of the ninth right rib with additional old appearing right rib fractures. No other evidence of significant thoracic trauma. Dictated and Authenticated by: Mendez Laird MD. Ordering:KATE FOWLER MD
[2018-06-11 14:35] LABS: Bilirubin Negative (Negative); Blood Trace-intact (Negative); Clarity Sl Cloudy; Glucose Negative (Negative); Ketones Negative (Negative); Leukocyte Esterase Negative (Negative); Nitrite Negative (Negative); Specific Gravity 1.015 (1.005-1.025); Urobilinogen 0.2 EU/dL (Up TO 0.2)
[2018-06-11 14:44] LABS: WBC 20-50 HPF (0-5)
[2018-06-11 14:45] LABS: Bacteria Many HPF (Negative); C & S Indicated? Yes; Casts Negative LPF (Negative); Crystals Negative HPF (Negative); Epithelial Cells Few HPF (Negative); Mucus Negative (Negative)
[2018-06-11 15:04] VITALS: BP 185/105; PULSE 103; RESP 16; TEMP 37.1; O2SAT 94
[2018-06-11 16:26] VITALS: BP 196/100; PULSE 109; RESP 16; O2SAT 96
[2018-06-11 17:15] VITALS: BP 182/110; PULSE 106; RESP 18; TEMP 37.1; O2SAT 96
--- NOTE | 2018-06-11 17:54 | HPE_ITS ---
Date of service: 06/11/18 Time of Service: 17:54 Assessment and Plan (1) Left rib fracture: Current visit: No Status: Acute Evidence of b/l Rib fractures, worse on left. Fractures occuring in setting of falls in patient while intoxicated. Pain control, physical therapy. Monitor. (2) Alcohol abuse: Current visit: Yes Status: Chronic Maintain on CIWA protocol with scheduled Oxazepam. Monitor vitals, electrolytes carefully. Has previously declined offers for multiple different strategies aimed at assisting her at home and as an outpatient in the past. (3) Chronic alcoholic gastritis: Current visit: Yes Status: Chronic Continue H2 j luis as well as BID PPI. (4) Essential hypertension: Current visit: Yes Status: Chronic Continue CCB, Spironolactone, BB, and ARB. Losartan was discontinued during previous hospitalization in setting of worsening renal function. Monitor creatinine, electrolytes. (5) Elev transaminase/LDH: Current visit: Yes Status: Chronic In patient with ETOH history. (6) Depressive disorder: Current visit: Yes Status: Chronic Continue Venlafaxine, QHS Trazodone. (7) DVT prophylaxis: Current visit: Yes Status: Acute SC Lovenox. (8) Discharge planning issues: Current visit: No Status: Acute Full Code. History of Present Illness Narrative: 73-year-old female with history of chronic alcoholism and frequent falls while inebriated, with frequent ED visits, presents following a fall at home while intoxicated. Ms. Ingram was found on the ground by EMS and brought to [facility] Emergency Department. Initial work-up revealed a visibly intoxicated woman without significant laboratory derangements. CT of the head noted potential of a minimally displaced nasal bone fracture without any acute skull fracture or intracranial process. She also had a negative CT scan of the C-spine. CT abdomen and pelvis note non-displaced fractures of left fifth through eighth posterior lateral ribs, but no pneumothorax. CT of the abdomen showed no acute process. She was also noted to be significantly hypertensive and mildly tachycardic. She was referred for admission for further evaluation and treatment. At time of examination the patient was found to be intoxicated but awake and alert, answering questions appropriately. Review of Systems Review of Systems Could not ascertain as patient was intoxicated at time of exam. [facility] Family History Mother No problems noted. Father No problems noted. Sister Personal history of malignant neoplasm Sister No problems noted. Grandfather Personal history of malignant neoplasm Grandfather Personal history of malignant neoplasm Grandmother Heart disease Acute ill-defined cerebrovascular disease Grandmother Personal history of malignant neoplasm Aunt Heart disease Aunt Heart disease Brother No problems noted. 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) Headache (Chronic) Gastritis (Chronic) Wernicke encephalopathy (Chronic) GERD (gastroesophageal reflux disease) (Chronic) Falling (Chronic) Alcohol dependence (Chronic) Anemia (Chronic) Alcohol abuse Depression Essential hypertension Hyperlipidemia Osteoarthritis Sciatica Urinary incontinence Social History Smoking/Tobacco Use Status: Former Tobacco Use Surgical History Bladder Surgery Colonoscopy - MAC (01/28/17) EGD - MAC (12/20/16) Ligation of fallopian tube Repair bladder injury, simple Meds Home Medications Medication Instructions Recorded Confirmed Type cholecalciferol (vitamin D3) 2 tab PO DAILY #100 tab-cap 09/03/16 06/11/18 History cyanocobalamin (vitamin B-12) 1,000 mcg PO DAILY #100 tab-cap 09/03/16 06/11/18 History [Vitamin B-12] fluticasone 1 spr NS daily prn #3 bottle 09/03/16 06/11/18 History gabapentin 2 tab PO BID #360 cap 03/25/17 06/11/18 History folic acid 1 mg PO DAILY #90 tab 07/26/17 06/11/18 Rx naltrexone 50 mg PO DAILY #30 tab-cap 11/04/17 06/11/18 Rx pyridoxine (vitamin B6) [Vitamin 50 mg PO nightly #60 cap 11/04/17 06/11/18 Rx B-6] thiamine mononitrate (vit B1) 100 mg PO QAM #90 tab 11/04/17 06/11/18 Rx venlafaxine 37.5 mg PO DAILY #90 tab-cap 11/04/17 06/11/18 Rx ondansetron HCl 4 mg PO Q6H PRN PRN #15 tab-cap 12/21/17 06/11/18 Rx potassium chloride 20 meq PO BID #180 tab-cap 03/30/18 06/11/18 Rx acetaminophen [Mapap Extra 500 mg PO Q6H tab 04/17/18 06/11/18 Rx Strength] polyethylene glycol 3350 17 gm PO DAILY PRN PRN packet 04/17/18 06/11/18 Rx tramadol 50 mg PO Q6H PRN PRN tab 04/17/18 06/11/18 Rx amlodipine 10 mg PO DAILY #30 tab 05/24/18 06/11/18 Rx carvedilol [Coreg] 6.25 mg PO BID #60 tab 05/24/18 06/11/18 Rx magnesium oxide 400 mg PO TID #120 tab 05/24/18 06/11/18 Rx pantoprazole 40 mg PO BID@0730,2000 #60 tab 05/24/18 06/11/18 Rx ranitidine HCl 150 mg PO BID #60 tab 05/24/18 06/11/18 Rx spironolactone 50 mg PO DAILY #30 tab 05/24/18 06/11/18 Rx trazodone 100 mg PO HS PRN PRN #30 tab 05/24/18 06/11/18 Rx venlafaxine 150 mg PO DAILY #30 cap 05/24/18 06/11/18 Rx Allergies Allergy/AdvReac Type Severity Reaction Status Date / Time Penicillins Allergy Mild Rash Unverified 05/17/18 00:43 ramipril Allergy Unknown ITCHING Unverified 05/17/18 00:43 meperidine [From Demerol] AdvReac Severe Nausea Unverified 05/17/18 00:43 bupropion AdvReac Mild GI upset Unverified 05/17/18 00:43 AMBER Inhibitors AdvReac Unknown COUGH Unverified 05/17/18 00:43 alendronate sodium AdvReac Unknown GI Distress Unverified 05/17/18 00:43 clarithromycin AdvReac Unknown intolerant Unverified 05/17/18 00:43 paroxetine AdvReac Unknown Diarrhea Unverified 05/17/18 00:43 Exam Narrative Exam Narrative: General: Patient appears comfortable, AAOX3, NAD. Appears intoxicated. Neck: Supple CV: Regular, nontachycardic, S1S2, No rubs, murmurs, or gallops. Pulmonary: Clear to auscultation bilaterally, no crackles, wheezing, or rhonchi Abdomen: + Bowel Sounds, soft, nontender, nondistended Vascular: No lower extremity edema Neurologic: No focal deficits. Musculoskeletal: Minimal pain overlying left lateral rib cage Psych: Normal mood and affect. Results Imaging Abdomen CT scan report/results: report reviewed CT scan - chest: report reviewed CT scan - pelvis: report reviewed Imaging Studies: Exam(s) EXAM: CT Head Without Intravenous Contrast CLINICAL HISTORY: 73 years old, female; Injury or trauma; Fall; Initial encounter; Blunt trauma (contusions or hematomas); Patient HX: S/P fall; Additional info: R/O acute abnormality TECHNIQUE: Axial computed tomography images of the head/brain without intravenous contrast. Coronal and sagittal reformatted images were created and reviewed. COMPARISON: No relevant prior studies available. FINDINGS: Mild diffuse atrophy. Chronic white matter changes of probable small vessel disease. No evidence of hemorrhage. No mass effect. No acute intracranial abnormality. No evidence of acute skull fracture. Irregularity of the nasal bones suggesting minimally displaced fractures. Impression: No evidence of acute intracranial process. Suggestion of minimally displaced fractures. EXAM: CT Cervical Spine Without Intravenous Contrast CLINICAL HISTORY: 73 years old, female; Injury or trauma; Fall; Initial encounter; Blunt trauma (contusions or hematomas); Patient HX: S/P fall; Additional info: R/O acute abnormality TECHNIQUE: Axial computed tomography images of the cervical spine without intravenous contrast. Coronal and sagittal reformatted images were created and reviewed. COMPARISON: FINDINGS: Diffuse degenerative disc and facet disease most pronounced at the C4-5 and C5-6 levels. Slight posterior positioning of C4 with respect to C3 and C6 with respect to C5. This is felt to be due to degenerative disc and facet disease. No evidence of acute fracture. Moderate increased density in the right upper lobe most likely representing scarring. Please see the final report for details as to the local protocol for followup if needed. Impression: No evidence of acute bony injury. - Exam(s) EXAM: CT Abdomen and Pelvis With Intravenous Contrast CLINICAL HISTORY: 73 years old, female; Injury or trauma; Fall; Initial encounter; Blunt; Generalized; Blunt trauma (contusions or hematomas); Patient HX: S/P fall; Additional info: R/O shoulder (l) / rib fracture, R/O abdominal abnormality/pelvis fracture TECHNIQUE: Axial computed tomography images of the abdomen and pelvis with intravenous contrast. Coronal and sagittal reformatted images were created and reviewed. COMPARISON: No relevant prior studies available. FINDINGS: Liver, spleen, and kidneys intact. No abnormal fluid collections. No extraluminal air. Diffuse degenerative disc and facet disease of the lumbar spine. No acute fracture of the abdomen and pelvis. Impression: No evidence of acute abdominal or pelvic trauma. EXAM: CT Chest With Intravenous Contrast CLINICAL HISTORY: 73 years old, female; Injury or trauma; Fall; Initial encounter; Blunt; Generalized; Blunt trauma (contusions or hematomas); Patient HX: S/P fall; Additional info: R/O shoulder (l) / rib fracture, R/O abdominal abnormality/pelvis fracture COMPARISON: No relevant prior studies available. FINDINGS: Nondisplaced fractures of the left fifth through eighth posterior lateral ribs. Old appearing right sided rib fractures although the posterior lateral aspect of the ninth rib may be acute or subacute. No evidence of pneumothorax. Mild basilar atelectasis. No pleural effusion. Mediastinum appears unremarkable. Impression: Multiple left-sided rib fractures with a possible acute or subacute fracture of the ninth right rib with additional old appearing right rib fractures. No other evidence of significant thoracic trauma. Labs : 06/11/18 12:15 06/12/18 06:30 Laboratory Results - last 24 hr 06/11/18 06/11/18 06/11/18 12:15 12:15 14:28 WBC 4.39 L RBC 3.60 L Hgb 11.2 L Hct 34.7 L MCV 96.4 H MCH 31.1 MCHC 32.3 RDW 17.8 H Plt Count 199 MPV 8.9 Abs Immat Gran (auto) Immature Gran % 0.2 Neutrophils % 59.7 Lymphocytes % 32.3 Monocytes % 6.2 Eosinophils % 1.4 Basophils % 0.2 Absolute Neutrophils 2.62 Band Neutrophils Absolute Lymphocytes 1.42 Absolute Monocytes 0.27 Absolute Eosinophils 0.06 Absolute Basophils 0.01 Metamyelocytes Myelocytes Promyelocytes Nucleated RBCs Differential Comment Atypical Lymphocytes Other Cell Type RBC Morphology Polychromasia Hypochromasia Poikilocytosis Basophilic Stippling Anisocytosis Microcytosis Macrocytosis Spherocytes Target Cells Tear Drop Cells Ovalocytes Stomatocytes Castro-Leland Bodies [place] Cells Acanthocytes (Spur) Schistocytes PT INR APTT Sodium 142 Potassium 3.5 Chloride 102 Carbon Dioxide 24.4 Anion Gap 15.6 H BUN 16 Creatinine 0.98 Estimated GFR/1.73 m2 55.79 Glucose 121 H Calcium 9.5 Magnesium 1.7 L Total Bilirubin 1.1 H Conjugated Bilirubin 0.27 H AST 41 H ALT 40 Alkaline Phosphatase 119 H Creatine Kinase 38 Troponin I < 0.02 Total Protein 7.1 Albumin 3.7 Lipase 177 Urine Color Yellow Urine Clarity Sl cloudy Urine pH 6.0 Ur Specific [place] 1.015 Urine Protein 30 H Urine Ketones Negative Urine Blood Trace-intact H Urine Nitrite Negative Urine Bilirubin Negative Urine Urobilinogen 0.2 Ur Leukocyte Esterase Negative Urine RBC 3-5 H Urine WBC 20-50 Ur Epithelial Cells Few Urine Crystals Negative Urine Bacteria Many Urine Casts Negative Urine Mucus Negative Ur Culture Indicated? Yes Urine Glucose Negative Ethyl Alcohol 338.0 06/11/18 06/11/18 06/11/18 14:36 14:36 14:36 WBC Cancelled RBC Cancelled Hgb Cancelled Hct Cancelled MCV Cancelled MCH Cancelled MCHC Cancelled RDW Cancelled Plt Count Cancelled MPV Cancelled Abs Immat Gran (auto) Cancelled Immature Gran % Cancelled Neutrophils % Cancelled Lymphocytes % Cancelled Monocytes % Cancelled Eosinophils % Cancelled Basophils % Cancelled Absolute Neutrophils Cancelled Band Neutrophils Cancelled Absolute Lymphocytes Cancelled Absolute Monocytes Cancelled Absolute Eosinophils Cancelled Absolute Basophils Cancelled Metamyelocytes Cancelled Myelocytes Cancelled Promyelocytes Cancelled Nucleated RBCs Cancelled Differential Comment Cancelled Atypical Lymphocytes Cancelled Other Cell Type Cancelled RBC Morphology Cancelled Polychromasia Cancelled Hypochromasia Cancelled Poikilocytosis Cancelled Basophilic Stippling Cancelled Anisocytosis Cancelled Microcytosis Cancelled Macrocytosis Cancelled Spherocytes Cancelled Target Cells Cancelled Tear Drop Cells Cancelled Ovalocytes Cancelled Stomatocytes Cancelled Castro-Leland Bodies Cancelled [place] Cells Cancelled Acanthocytes (Spur) Cancelled Schistocytes Cancelled PT Cancelled INR Cancelled APTT Cancelled Sodium Cancelled Potassium Cancelled Chloride Cancelled Carbon Dioxide Cancelled Anion Gap Cancelled BUN Cancelled Creatinine Cancelled Estimated GFR/1.73 m2 Cancelled Glucose Cancelled Calcium Cancelled Magnesium Cancelled Total Bilirubin Cancelled Conjugated Bilirubin Cancelled AST Cancelled ALT Cancelled Alkaline Phosphatase Cancelled Creatine Kinase Troponin I Cancelled Total Protein Cancelled Albumin Cancelled Lipase Cancelled Urine Color Urine Clarity Urine pH Ur Specific [place] Urine Protein Urine Ketones Urine Blood Urine Nitrite Urine Bilirubin Urine Urobilinogen Ur Leukocyte Esterase Urine RBC Urine WBC Ur Epithelial Cells Urine Crystals Urine Bacteria Urine Casts Urine Mucus Ur Culture Indicated? Urine Glucose Ethyl Alcohol Last Vital Signs Temp 37.1 C 06/11/18 17:15 Pulse 106 H 06/11/18 17:15 Resp 18 06/11/18 17:15 BP 182/110 H 06/11/18 17:15 Pulse Ox 96 06/11/18 17:15
[2018-06-11] MEDS: Normal Saline 1,000 ML 75 ML IV (17:57)
[2018-06-11] MEDS: LORazepam 1 MG TAB PO/SL (18:33)
[2018-06-11] MEDS: Losartan 50 MG TAB 100 MG PO (18:34)
[2018-06-11] MEDS: Enoxaparin 40 MG/0.4 ML SYR SC (18:34)
[2018-06-11] MEDS: Acetaminophen 325 MG TAB PO (18:35)
[2018-06-11 20:33] VITALS: BP 176/100; PULSE 108; RESP 16; TEMP 37.5; O2SAT 96
[2018-06-11] MEDS: Potassium Chloride 20 MEQ TABCR PO (21:13)
[2018-06-11] MEDS: Carvedilol 6.25 MG TAB PO (21:14)
[2018-06-11] MEDS: amLODIPine 10 MG TAB PO (21:15)
[2018-06-11] MEDS: Pantoprazole 40 MG TABCR PO (21:16)
[2018-06-11] MEDS: Gabapentin 100 MG CAP 200 MG PO (21:17)
[2018-06-11] MEDS: Magnesium Oxide 400 MG TAB PO (21:18)
[2018-06-11] MEDS: Docusate Sodium 100 MG CAP PO (21:19)
[2018-06-11] MEDS: Senna TAB 2 TAB PO (21:32)
[2018-06-12] VITALS: BP 175/103; PULSE 98; RESP 18; TEMP 37.4; O2SAT 95
[2018-06-12] MEDS: LORazepam 1 MG TAB PO/SL (02:19)
[2018-06-12] MEDS: Normal Saline 1,000 ML 75 ML IV ×2 (06:25→19:25)
[2018-06-12 07:22] VITALS: BP 166/83; PULSE 84; RESP 18; TEMP 36.6; O2SAT 97
[2018-06-12 07:30] LABS: Anion Gap 7.6 mmol/L (3-11); BUN 11 mg/dL (7-18); CO2 28.4 mmol/L (21.0-32.0); CREATININE 0.76 mg/dL (0.55-1.02); Calcium 8.7 mg/dL (8.5-10.1); Chloride 105 mmol/L (98-107); Glucose 97 mg/dL (70-100); Potassium 3.3 mmol/L (3.5-5.1); Sodium 141 mmol/L (136-145)
[2018-06-12 07:35] VITALS: BP 161/89; PULSE 84; RESP 20; TEMP 36.1; O2SAT 92
[2018-06-12] MEDS: Lidocaine 5% Patch 2 PATCH TP (08:53)
[2018-06-12] MEDS: Naltrexone 50 MG TAB PO (08:59)
[2018-06-12] MEDS: Spironolactone 25 MG TAB 50 MG PO (08:59)
[2018-06-12] MEDS: Venlafaxine 37.5 MG CAPCR PO (08:59)
[2018-06-12] MEDS: Venlafaxine 150 MG CAPCR PO (08:59)
[2018-06-12] MEDS: Magnesium Oxide 400 MG TAB PO ×3 (08:59→20:24)
[2018-06-12] MEDS: Folic Acid 1 MG TAB PO (08:59)
[2018-06-12] MEDS: Thiamine 100 MG TAB PO (08:59)
[2018-06-12] MEDS: Cyanocobalamin 500 MCG TAB 1000 MCG PO (09:00)
[2018-06-12] MEDS: amLODIPine 10 MG TAB PO (09:00)
[2018-06-12] MEDS: Losartan 50 MG TAB 100 MG PO (09:00)
[2018-06-12] MEDS: Gabapentin 100 MG CAP 200 MG PO ×2 (09:00→20:24)
[2018-06-12] MEDS: Potassium Chloride 20 MEQ TABCR PO ×2 (09:00→20:24)
[2018-06-12] MEDS: Pantoprazole 40 MG TABCR PO ×2 (09:00→20:24)
--- NOTE | 2018-06-12 10:09 | PT.INIE ---
Date of service: 06/12/18 Time of Service: 10:03 PT Notes Date: 06/12/18 Referring Doctor: Robert Medina PT Orders: PT Consult fall with intoxication, rib fractures Precautions: Fall Precautions Patient Profile/Admitting Diagnosis: Pt is a 73 yr old female admitted for alcohol withdrawal s/p recent left proximal humeral fracture s/p fall at home, now with non-displaced fractures left 5th-8th ribs PMHX: depression, anxiety, alcohol abuse with multiple rehab attempts, alcoholic gastritis, alcoholic hepatitis, Wernicke's encephalopathy, chronic back pain, osteoarthritis hypertension, hyperlipidemia, genital herpes, osteopenia, urinary incontinence s/p bladder repair, temporal mandibular joint pain, allergic rhinitis, lymphocytic colitis, uterine leiomyoma, bilateral cataracts, bilateral tubal ligation Social History/Home Situation: Lives alone in home in [place], 3 steps with left rail to enter, 2 level home patient can stay on the first level, bedroom and bathroom on first level. 10-12 steps with railing to second floor. Baseline mobility independent uses a cane, still drives, sister assists sometimes. Pt states she has not been using the walker at home because she has trouble fitting it in her house. Equipment owned/DME: SPC, FWW, bedside commode, shower chair, grab bars in the bathroom SUBJECTIVE: Pt lying in bed, sleeping, arousable to verbal stimulus but has trouble keeping her eyes open to participate in conversation. Pt agreeable to PT consult. OBJECTIVE General Observation: IV R UE Mental Status: A&O x 3 Pain: c/o pain left arm with movement (prior humerus fracture), not rated. BED MOBILITY/TRANSFERS: Supine-sit: HOB 30 degrees, supervision Sit-stand: SBA with FWW Stand-sit: SBA Bed-commode or chair: unable due to dizziness with standing positions, stating she feels like she is going to faint and lying back down on bed GAIT: stood 2x at bedside with FWW, reported severe dizziness and transferred back to bed. Unable to perform gait training due to dizziness in upright position. BALANCE: Static Sitting balance: normal Dynamic sitting balance: normal Static Standing balance: fair Dynamic standing balance: fair SPECIAL TESTS: Mobility Limitations Standardized Measure [facility] -PAC ?6 clicks? Basic Mobility Inpatient Short Form: raw score: 16 standardized score: 40.78 CMS score: 54.16% CMS modifier: CK INFORMED CONSENT/EDUCATION: Pt instructed in purpose of PT Consult and plan of care and in agreement with plan. ASSESSMENT: Pt is a 73 yr old female admitted for alcohol withdrawal s/p recent left proximal humeral fracture s/p fall at home, now with non-displaced fractures left 5th-8th ribs, in setting of depression, anxiety, alcohol abuse with multiple rehab attempts, alcoholic gastritis, alcoholic hepatitis, Wernicke's encephalopathy, chronic back pain, osteoarthritis. Patient presents with clinical signs and symptoms consistent with diagnosis as demonstrated by the following impairment level findings: decreased strength and mobility with bed transfers, standing transfers and gait with inability to transfer to chair or commode this morning or progress gait training due to dizziness with standing positions requiring transfer back to bed. Pt decreased static and dynamic standing balance putting her at high risk for falls. Impairments are contributing to the following functional limitations: AMPAC score CMS score: 54.16% Patient is assessed as a * mod 46760 complexity based on the following: History: see above, left humeral fracture, alcohol withdrawal, abdominal pain, gastritis, hypokalemia, depression, anxiety, alcohol abuse with multiple rehab attempts, alcoholic gastritis, alcoholic hepatitis, Wernicke's encephalopathy, chronic back pain, osteoarthritis Examination: see above, decreased strength and mobility with bed transfers, standing transfers, gait, decreased static and dynamic standing balance . Presentation: unstable Decision Making: AMPAC score CMS score: 54.16% GOALS x 1week 1. Supine-sit: HOB flat no rails, I 2. Sit-supine: HOB flat no rails, I 3. Sit-stand: S with FWW 4. Stand-sit: S 5. Bed-Chair: S with FWW 6. Chair-bed: S with FWW 7. Gait: S with FWW, 75ft PLAN OF CARE/TREATMENT PLAN 1-2x/day, 7 days/ week x 1 week READING ASSISTANT providing services updated on patient status and plan of care. Initiate physical therapy intervention for strengthening, bed mobility, transfers, gait, stair and balance training. DISCHARGE RECOMMENDATIONS Home with home PT TREATMENT TIME/MINUTES/CODES 24 IE 10:03 G codes in the area of mobility, walking and moving around current status GP [id number] with projected status GP [id number] and discharge status GP G8980- CK based on AMPAC score CMS score: 54.16% Sobia Delarosa PT
--- NOTE | 2018-06-12 10:13 | IN_ITS ---
Date of service: 06/12/18 Time of Service: 10:03 PT Notes Date: 06/12/18 Referring Doctor: Robert Medina PT Orders: PT Consult fall with intoxication, rib fractures Precautions: Fall Precautions Patient Profile/Admitting Diagnosis: Pt is a 73 yr old female admitted for alcohol withdrawal s/p recent left proximal humeral fracture s/p fall at home, now with non-displaced fractures left 5th-8th ribs PMHX: depression, anxiety, alcohol abuse with multiple rehab attempts, alcoholic gastritis, alcoholic hepatitis, Wernicke's encephalopathy, chronic back pain, osteoarthritis hypertension, hyperlipidemia, genital herpes, osteopenia, urinary incontinence s/p bladder repair, temporal mandibular joint pain, allergic rhinitis, lymphocytic colitis, uterine leiomyoma, bilateral cataracts, bilateral tubal ligation Social History/Home Situation: Lives alone in home in [place], 3 steps with left rail to enter, 2 level home patient can stay on the first level, bedroom and bathroom on first level. 10-12 steps with railing to second floor. Baseline mobility independent uses a cane, still drives, sister assists sometimes. Pt states she has not been using the walker at home because she has trouble fitting it in her house. Equipment owned/DME: SPC, FWW, bedside commode, shower chair, grab bars in the bathroom SUBJECTIVE: Pt lying in bed, sleeping, arousable to verbal stimulus but has trouble keeping her eyes open to participate in conversation. Pt agreeable to PT consult. OBJECTIVE General Observation: IV R UE Mental Status: A&O x 3 Pain: c/o pain left arm with movement (prior humerus fracture), not rated. BED MOBILITY/TRANSFERS: Supine-sit: HOB 30 degrees, supervision Sit-stand: SBA with FWW Stand-sit: SBA Bed-commode or chair: unable due to dizziness with standing positions, stating she feels like she is going to faint and lying back down on bed GAIT: stood 2x at bedside with FWW, reported severe dizziness and transferred back to bed. Unable to perform gait training due to dizziness in upright position. BALANCE: Static Sitting balance: normal Dynamic sitting balance: normal Static Standing balance: fair Dynamic standing balance: fair SPECIAL TESTS: Mobility Limitations Standardized Measure [facility] -PAC ?6 clicks? Basic Mobility Inpatient Short Form: raw score: 16 standardized score: 40.78 CMS score: 54.16 % CMS modifier: CK INFORMED CONSENT/EDUCATION: Pt instructed in purpose of PT Consult and plan of care and in agreement with plan. ASSESSMENT: Pt is a 73 yr old female admitted for alcohol withdrawal s/p recent left proximal humeral fracture s/p fall at home, now with non-displaced fractures left 5th-8th ribs, in setting of depression, anxiety, alcohol abuse with multiple rehab attempts, alcoholic gastritis, alcoholic hepatitis, Wernicke 's encephalopathy, chronic back pain, osteoarthritis. Patient presents with clinical signs and symptoms consistent with diagnosis as demonstrated by the following impairment level findings: decreased strength and mobility with bed transfers, standing transfers and gait with inability to transfer to chair or commode this morning or progress gait training due to dizziness with standing positions requiring transfer back to bed. Pt decreased static and dynamic standing balance putting her at high risk for falls. Impairments are contributing to the following functional limitations: AMPAC score CMS score: 54.16% Patient is assessed as a * mod 34918 complexity based on the following: History: see above, left humeral fracture, alcohol withdrawal, abdominal pain, gastritis, hypokalemia, depression, anxiety, alcohol abuse with multiple rehab attempts, alcoholic gastritis, alcoholic hepatitis, Wernicke's encephalopathy, chronic back pain, osteoarthritis Examination: see above, decreased strength and mobility with bed transfers, standing transfers, gait, decreased static and dynamic standing balance . Presentation: unstable Decision Making: AMPAC score CMS score: 54.16% GOALS x 1week 1. Supine-sit: HOB flat no rails, I 2. Sit-supine: HOB flat no rails, I 3. Sit-stand: S with FWW 4. Stand-sit: S 5. Bed-Chair: S with FWW 6. Chair-bed: S with FWW 7. Gait: S with FWW, 75ft PLAN OF CARE/TREATMENT PLAN 1-2x/day, 7 days/ week x 1 week TUBE DRAWING SUPERVISOR providing services updated on patient status and plan of care. Initiate physical therapy intervention for strengthening, bed mobility, transfers, gait, stair and balance training. DISCHARGE RECOMMENDATIONS Home with home PT TREATMENT TIME/MINUTES/CODES 24 IE 10:03 G codes in the area of mobility, walking and moving around current status GP [id number] with projected status GP [id number] and discharge status GP G8980- CK based on AMPAC score CMS score: 54.16% Sobia Delarosa PT
[2018-06-12] MEDS: Carvedilol 6.25 MG TAB PO ×2 (10:18→20:24)
[2018-06-12 10:20] VITALS: BP 157/93; PULSE 90
--- NOTE | 2018-06-12 11:26 | PDOC.CMIN ---
- If Service Date Differs Date of service: 06/12/18 Time of Service: 11:26 Care Management Initial Assess REASON FOR HOSPITALIZATION:: Alcohol abuse PAST MEDICAL HISTORY/PAST SURGICAL HISTORY:: Alcohol abuse (Chronic). Alcoholic ketosis (Resolved). Alcohol abuse (Chronic). Alcohol withdrawal (Chronic). Hypertension (Acute). Hyperlipidemia (Chronic). Back pain, chronic (Chronic). Depression (Chronic). Genital herpes (Chronic). Osteoarthritis (Chronic). Osteopenia (Chronic). Urinary incontinence (Chronic). 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 Headache (Chronic). Gastritis (Chronic). Wernicke encephalopathy (Chronic). GERD (gastroesophageal reflux disease) (Chronic). Falling (Chronic). Alcohol dependence (Chronic). Anemia (Chronic). Alcohol abuse. Depression. Essential hypertension. Hyperlipidemia. Osteoarthritis. Sciatica. Urinary incontinence. Bladder Surgery. Colonoscopy - MAC (01/28/17). EGD - MAC (12/20/16). Ligation of fallopian tube. Repair bladder injury, simple PREVIOUS FUNCTIONAL STATUS/SOCIAL/FAMILY SUPPORTS:: Leticia resides alone in [place], she has a sister whom resides locally. Leticia has two sons whom reside out of [facility]. Leticia is independent at baseline. CURRENT FUNCTIONAL STATUS:: Leticia is lying in bed this morning. CM knows her well from previous hospitalizations. ADVANCE DIRECTIVES:: None on file Has patient been provided with information about the portal?: Yes Did the patient sign up for the portal?: No CODE STATUS:: Full Code INSURANCE COVERAGE / FINANCIAL ISSUES:: [employer], Financial ASST 70 CURRENT HOME/COMMUNITY SERVICES/EQUIPMENT:: Currently Leticia has a FWW at home. CM has left a for [facility] to verify current home health services. In the past Leticia has had MOW, COA case management (Monica Rodriguez), Vesna Keene ([facility] @), and Home health RN/PT services. PRIMARY CARE PHYSICIAN:: Dr. Galindo POTENTIAL DISCHARGE NEEDS:: F/U appointment with PCP. PATIENT/FAMILY EDUCATION NEEDS:: Review DC instructions, any limitations, and ongoing DC planning discussion. Discuss Ask Me Three ANTICIPATED BARRIERS TO DISCHARGE:: None identified at this time. TRANSPORTATION:: Via private vehicle with sister or taxi PLAN:: Leticia will return home with ? continued home health services. She will F/U with PCP and plan of care as prescribed. Leticia's sister or taxi to transport when ready. Readmission - Within the Past 30 Days Yes or No: Y - Date of First Admission Date of 1st Admission: 05/17/18 - Date of this Admission Date of Admission: 06/11/18 This admission was: Through ED - Office Visit Since 1st Admission Have you seen your PCP in the office since discharge?: Yes Date of PCP Appointment: 06/02/18 Describe barriers for scheduling or getting an appointment: Home visit - Speicalist Appointments Have you seen any other specialist since your 1st Admission?: No - I. Interview patient and/or Family Difficulty reaching your doctor or getting an office appt?: No Have you had trouble purchasing/ or taking medication?: No How do you take your medications and set up your pills?: Pills are set up around the home. Have you had trouble with getting meals at home?: No Did you feel ready for discharge when you left the last time: Yes - If the patient had a VNA ordered Did the patient have a VNA order?: Yes Did you call the VNA before you came?: No - If the patient had home care service Call them to discuss the patient's admission: [facility] has left a VM for [facility] in regards to home services that were arranged on DC. Unsure as to what services are in place at this time. - ED visits How many ED visits in the past 12 months: 13 - Assessment for Readmission Summary of readmission circumstances, based upon interviews: Leticia continues to present to [facility] for falls and ETOH abuse. Leticia has had home health at home, as well as support through her PCP (home visits) and CCC at her PCP's office. [facility]O has a call out to [facility] in regards to home services as well as services that will be needed upon DC. Awaiting call back at this time.
--- NOTE | 2018-06-12 12:20 | INITIAL_ITS ---
- If Service Date Differs Date of service: 06/12/18 Time of Service: 11:26 Care Management Initial Assess REASON FOR HOSPITALIZATION:: Alcohol abuse PAST MEDICAL HISTORY/PAST SURGICAL HISTORY:: Alcohol abuse (Chronic). Alcoholic ketosis (Resolved). Alcohol abuse (Chronic). Alcohol withdrawal ( Chronic). Hypertension (Acute). Hyperlipidemia (Chronic). Back pain, chronic (Chronic). Depression (Chronic). Genital herpes (Chronic). Osteoarthritis ( Chronic). Osteopenia (Chronic). Urinary incontinence (Chronic). DJD ( degenerative joint disease) of cervical spine (Chronic). Headache (Chronic). Gastritis (Chronic). Wernicke encephalopathy (Chronic). GERD ( gastroesophageal reflux disease) (Chronic). Falling (Chronic). Alcohol dependence (Chronic). Anemia (Chronic). Alcohol abuse. Depression. Essential hypertension. Hyperlipidemia. Osteoarthritis. Sciatica. Urinary incontinence. Bladder Surgery. Colonoscopy - MAC (01/28/17). EGD - MAC (12/20). Ligation of fallopian tube. Repair bladder injury, simple PREVIOUS FUNCTIONAL STATUS/SOCIAL/FAMILY SUPPORTS:: Leticia resides alone in [place], she has a sister whom resides locally. Leticia has two sons whom reside out of [facility]. Leticia is independent at baseline. CURRENT FUNCTIONAL STATUS:: Leticia is lying in bed this morning. CM knows her well from previous hospitalizations. ADVANCE DIRECTIVES:: None on file Has patient been provided with information about the portal?: Yes Did the patient sign up for the portal?: No CODE STATUS:: Full Code INSURANCE COVERAGE / FINANCIAL ISSUES:: [employer], Financial ASST 70 CURRENT HOME/COMMUNITY SERVICES/EQUIPMENT:: Currently Leticia has a FWW at home. CM has left a for [facility] to verify current home health services. In the past Leticia has had MOW, COA case management (Monica Rodriguez), Vesna Keene ([facility] @), and Home health RN/PT services. PRIMARY CARE PHYSICIAN:: Dr. Galindo POTENTIAL DISCHARGE NEEDS:: F/U appointment with PCP. PATIENT/FAMILY EDUCATION NEEDS:: Review DC instructions, any limitations, and ongoing DC planning discussion. Discuss Ask Me Three ANTICIPATED BARRIERS TO DISCHARGE:: None identified at this time. TRANSPORTATION:: Via private vehicle with sister or taxi PLAN:: Leticia will return home with ? continued home health services. She will F/ U with PCP and plan of care as prescribed. Leticia's sister or taxi to transport when ready. Readmission - Within the Past 30 Days Yes or No: Y - Date of First Admission Date of 1st Admission: 05/17/18 - Date of this Admission Date of Admission: 06/11/18 This admission was: Through ED - Office Visit Since 1st Admission Have you seen your PCP in the office since discharge?: Yes Date of PCP Appointment: 06/02/18 Describe barriers for scheduling or getting an appointment: Home visit - Speicalist Appointments Have you seen any other specialist since your 1st Admission?: No - I. Interview patient and/or Family Difficulty reaching your doctor or getting an office appt?: No Have you had trouble purchasing/ or taking medication?: No How do you take your medications and set up your pills?: Pills are set up around the home. Have you had trouble with getting meals at home?: No Did you feel ready for discharge when you left the last time: Yes - If the patient had a VNA ordered Did the patient have a VNA order?: Yes Did you call the VNA before you came?: No - If the patient had home care service Call them to discuss the patient's admission: [facility] has left a VM for [facility] in regards to home services that were arranged on DC. Unsure as to what services are in place at this time. - ED visits How many ED visits in the past 12 months: 13 - Assessment for Readmission Summary of readmission circumstances, based upon interviews: Leticia continues to present to [facility] for falls and ETOH abuse. Leticia has had home health at home, as well as support through her PCP (home visits) and CCC at her PCP's office. [facility] has a call out to [facility] in regards to home services as well as services that will be needed upon DC. Awaiting call back at this time.
[2018-06-12] MEDS: Docusate Sodium 100 MG CAP PO ×2 (13:06→20:25)
--- NOTE | 2018-06-12 13:29 | PT.INTREAT ---
Date of service: 06/12/18 Time of Service: 13:27 PT Notes Inpatient Physical Therapy Treatment Note Date: 06/12/18 PRECAUTIONS: Fall precautions SUBJECTIVE: Pt sleeping in bed, difficult to arouse, able to awaken when provided with wet wash cloth to wash face. Pt incontinent of urine, agreeable to therapy session to get out of bed for change. OBJECTIVE: PAIN: no c/o pain BED MOBILITY/TRANSFERS Rolling L/R: independent Supine-sit: HOB 30 degrees, supervision Sit-supine: HOB flat, supervision Sit-stand: SBA with FWW, using R UE more than left due to recent left proximal humerus fracture. Stand-sit: SBA Bed-Chair: unable due to falling asleep in standing position. GAIT Assistive Device: FWW Weight bearing: as tolerated Assist: SBA Distance: 5 side steps to the left, further gait witheld due to patient falling asleep in standing position. Pt was incontinent of urine, able to stand at bedside for change of pull up, clean up and change of gown before requiring transfer back to bed. Pt not alert enough to sit in chair or progress gait this afternoon. THEREX: unable to perform, falling asleep ASSESSMENT: Pt mobilizing without assistance, supervision/SBA only with FWW, however she is not able to do much due to falling asleep during both am and pm sessions and as a result was lying in bed incontinent of urine requiring assistance to awaken to get cleaned up. Pt needs to be more alert to participate in progressive mobility. PLAN: Progress transfers Progress gait training TREATMENT CODE/TIME: 24min TAX2 [id number] Sobia Delarosa PT
--- NOTE | 2018-06-12 14:33 | W.PM.PROGNOT ---
Assessment and Plan (1) Left rib fracture: Current visit: No Status: Acute Evidence of b/l Rib fractures, worse on left. Fractures occuring in setting of falls in patient while intoxicated. Pain control, physical therapy. Monitor. (2) Alcohol abuse: Current visit: Yes Status: Chronic Potential start of withdrawl today. Maintain on CIWA protocol with scheduled Oxazepam. Monitor vitals, electrolytes carefully. Has previously declined offers for multiple different strategies aimed at assisting her at home and as an outpatient in the past. (3) Chronic alcoholic gastritis: Current visit: Yes Status: Chronic Continue H2 j luis as well as BID PPI. (4) Essential hypertension: Current visit: Yes Status: Chronic Continue CCB, Spironolactone, BB, and ARB. Losartan was discontinued during previous hospitalization in setting of worsening renal function. Monitor creatinine, electrolytes. (5) Elev transaminase/LDH: Current visit: Yes Status: Chronic In patient with ETOH history. (6) Depressive disorder: Current visit: Yes Status: Chronic Continue Venlafaxine, QHS Trazodone. (7) DVT prophylaxis: Current visit: Yes Status: Acute SC Lovenox. (8) Discharge planning issues: Current visit: No Status: Acute Full Code. Subjective Interval history since last seen: 73-year-old female with history of chronic alcoholism and frequent falls while inebriated, with frequent ED visits, admitted from [facility] Emergency Department on 06/11/2018 following a fall at home while intoxicated, with evidence of rib fractures. Ms. Ingram was found on the ground by EMS and brought to [facility] Emergency Department. Initial work-up revealed a visibly intoxicated woman without significant laboratory derangements. CT of the head noted potential of a minimally displaced nasal bone fracture without any acute skull fracture or intracranial process. She also had a negative CT scan of the C-spine. CT abdomen and pelvis note non-displaced fractures of left fifth through eighth posterior lateral ribs, but no pneumothorax. CT of the abdomen showed no acute process. She was also noted to be significantly hypertensive and mildly tachycardic. She was referred for admission for further evaluation and treatment. Patient appears more somnolent today, and reporting to Physical Therapy that she is dizzy with standing. Still responding and appropriate. No overnight events reported. Remains hypertensive but improved. Afebrile. Exam Narrative Exam Narrative: General: Patient appears comfortable. Sleeping but arousable. Oriented X3. Neck: Supple CV: Regular, nontachycardic, S1S2, No rubs, murmurs, or gallops. Pulmonary: Clear to auscultation bilaterally, no crackles, wheezing, or rhonchi Abdomen: + Bowel Sounds, soft, nontender, nondistended Vascular: No lower extremity edema Objective Objective Clinical Data: Abnormal lab results 06/11/18 06/12/18 Range/Units 14:28 06:30 Potassium 3.3 L (3.5-5.1) mmol/L Urine Protein 30 H (Negative) mg/dL Urine Blood Trace-intact H (Negative) Urine RBC 3-5 H (0-2) Vital Signs Temperature 36.1 C L 06/12/18 07:35 Temperature Source Tympanic 06/12/18 07:35 Pulse 90 06/12/18 10:20 Pulse Rhythm Regular 06/12/18 10:28 Respiratory Rate 20 06/12/18 07:35 Respiratory Effort Non-Labored 06/12/18 10:28 Respiratory Depth Normal 06/12/18 10:28 Respiratory Pattern Normal 06/11/18 12:00 Blood Pressure 157/93 H 06/12/18 10:20 Blood Pressure Position Supine 06/11/18 11:48 Pulse Oximetry 92 L 06/12/18 07:35 Oxygen Delivery Method Room Air 06/12/18 07:35 Oxygen Flow Rate 0 06/12/18 07:35 Pain Level 0 06/12/18 07:22 Intake & Output 06/11/18 06/12/18 06/12/18 23:59 11:59 23:59 Intake Total 770 / 770 1375 / 1375 572.5 / 572.5 Output Total 550 / 550 Balance 770 / 770 825 / 825 572.5 / 572.5 Weight 65.771 kg Intake: IV 50 / 50 935 / 935 572.5 / 572.5 Oral 720 / 720 440 / 440 Output: Urine 550 / 550 Other: Urine Color Yellow Yellow Urine Appearance Clear Clear Urine Odor Normal Normal Comment needs encouragement to get oob and use commode Voiding Methods Bedside Commode Bedside Commode Laboratory Results WBC 4.39 k/cumm (4.4-10.8) L 06/11/18 12:15 RBC 3.60 m/cumm (4.00-5.20) L 06/11/18 12:15 Hgb 11.2 g/dL (12.0-15.5) L 06/11/18 12:15 Hct 34.7 % (36.0-46.0) L 06/11/18 12:15 MCV 96.4 fL (80-95) H 06/11/18 12:15 MCH 31.1 pg (27.0-33.0) 06/11/18 12:15 MCHC 32.3 g/dL (32.0-36.0) 06/11/18 12:15 RDW 17.8 % (11.7-14.6) H 06/11/18 12:15 Plt Count 199 x1000/uL (130-400) 06/11/18 12:15 MPV 8.9 fL (8.0-11.0) 06/11/18 12:15 Abs Immat Gran (auto) Cancelled 06/11/18 14:36 Immature Gran % 0.2 06/11/18 12:15 Neutrophils % 59.7 06/11/18 12:15 Lymphocytes % 32.3 06/11/18 12:15 Monocytes % 6.2 06/11/18 12:15 Eosinophils % 1.4 06/11/18 12:15 Basophils % 0.2 06/11/18 12:15 Absolute Neutrophils 2.62 k/cumm (1.2-6.7) 06/11/18 12:15 Band Neutrophils Cancelled 06/11/18 14:36 Absolute Lymphocytes 1.42 k/cumm (1.2-3.4) 06/11/18 12:15 Absolute Monocytes 0.27 k/cumm (0.11-0.7) 06/11/18 12:15 Absolute Eosinophils 0.06 k/cumm (0.0-0.7) 06/11/18 12:15 Absolute Basophils 0.01 k/cumm (0.0-0.2) 06/11/18 12:15 Metamyelocytes Cancelled 06/11/18 14:36 Myelocytes Cancelled 06/11/18 14:36 Promyelocytes Cancelled 06/11/18 14:36 Nucleated RBCs Cancelled 06/11/18 14:36 Differential Comment Cancelled 06/11/18 14:36 Atypical Lymphocytes Cancelled 06/11/18 14:36 Other Cell Type Cancelled 06/11/18 14:36 RBC Morphology Cancelled 06/11/18 14:36 Polychromasia Cancelled 06/11/18 14:36 Hypochromasia Cancelled 06/11/18 14:36 Poikilocytosis Cancelled 06/11/18 14:36 Basophilic Stippling Cancelled 06/11/18 14:36 Anisocytosis Cancelled 06/11/18 14:36 Microcytosis Cancelled 06/11/18 14:36 Macrocytosis Cancelled 06/11/18 14:36 Spherocytes Cancelled 06/11/18 14:36 Target Cells Cancelled 06/11/18 14:36 Tear Drop Cells Cancelled 06/11/18 14:36 Ovalocytes Cancelled 06/11/18 14:36 Stomatocytes Cancelled 06/11/18 14:36 [place] Bodies Cancelled 06/11/18 14:36 Hillister Cells Cancelled 06/11/18 14:36 Acanthocytes (Spur) Cancelled 06/11/18 14:36 Schistocytes Cancelled 06/11/18 14:36 PT Cancelled 06/11/18 14:36 INR Cancelled 06/11/18 14:36 APTT Cancelled 06/11/18 14:36 Sodium 141 mmol/L (136-145) 06/12/18 06:30 Potassium 3.3 mmol/L (3.5-5.1) L 06/12/18 06:30 Chloride 105 mmol/L (98-107) 06/12/18 06:30 Carbon Dioxide 28.4 mmol/L (21.0-32.0) 06/12/18 06:30 Anion Gap 7.6 mmol/L (3-11) 06/12/18 06:30 BUN 11 mg/dL (7-18) 06/12/18 06:30 Creatinine 0.76 mg/dL (0.55-1.02) 06/12/18 06:30 Estimated GFR/1.73 m2 >= 60.00 (mL/min/1.73m2) 06/12/18 06:30 Glucose 97 mg/dL (70-100) 06/12/18 06:30 Calcium 8.7 mg/dL (8.5-10.1) 06/12/18 06:30 Magnesium 2.0 mg/dL (1.8-2.4) 06/12/18 06:30 Total Bilirubin 1.1 mg/dL (0.2-1.0) H 06/11/18 12:15 Conjugated Bilirubin 0.27 mg/dL (0.00-0.20) H 06/11/18 12:15 AST 41 U/L (15-37) H 06/11/18 12:15 ALT 40 U/L (12-78) 06/11/18 12:15 Alkaline Phosphatase 119 U/L (46-116) H 06/11/18 12:15 Creatine Kinase 38 U/L (26-192) 06/11/18 12:15 Troponin I < 0.02 ng/mL (0.00-0.06) 06/11/18 12:15 Total Protein 7.1 g/dL (6.4-8.2) 06/11/18 12:15 Albumin 3.7 g/dL (3.4-5.0) 06/11/18 12:15 Lipase 177 U/L (73-393) 06/11/18 12:15 Urine Color Yellow (Yellow) 06/11/18 14:28 Urine Clarity Sl cloudy 06/11/18 14:28 Urine pH 6.0 (5-8) 06/11/18 14:28 Ur Specific [place] 1.015 (1.005-1.025) 06/11/18 14:28 Urine Protein 30 mg/dL (Negative) H 06/11/18 14:28 Urine Ketones Negative mg/dL (Negative) 06/11/18 14:28 Urine Blood Trace-intact (Negative) H 06/11/18 14:28 Urine Nitrite Negative (Negative) 06/11/18 14:28 Urine Bilirubin Negative (Negative) 06/11/18 14:28 Urine Urobilinogen 0.2 EU/dL (Up TO 0.2) 06/11/18 14:28 Ur Leukocyte Esterase Negative (Negative) 06/11/18 14:28 Urine RBC 3-5 (0-2) H 06/11/18 14:28 Urine WBC 20-50 HPF (0-5) 06/11/18 14:28 Ur Epithelial Cells Few HPF (Negative) 06/11/18 14:28 Urine Crystals Negative HPF (Negative) 06/11/18 14:28 Urine Bacteria Many HPF (Negative) 06/11/18 14:28 Urine Casts Negative LPF (Negative) 06/11/18 14:28 Urine Mucus Negative (Negative) 06/11/18 14:28 Ur Culture Indicated? Yes 06/11/18 14:28 Urine Glucose Negative mg/dL (Negative) 06/11/18 14:28 Ethyl Alcohol 338.0 mg/dL (<3) 06/11/18 12:15
[2018-06-12] MEDS: Potassium Chloride 20 MEQ TABCR 40 MEQ PO (15:27)
[2018-06-12 15:53] VITALS: BP 161/89; PULSE 17; RESP 17; TEMP 36.3; O2SAT 95
[2018-06-12] MEDS: Enoxaparin 40 MG/0.4 ML SYR SC (17:06)
[2018-06-12] MEDS: Senna TAB 2 TAB PO (22:39)
[2018-06-12 22:40] VITALS: BP 174/100; PULSE 102; RESP 18; TEMP 36.6; O2SAT 97
[2018-06-13] MEDS: Acetaminophen 325 MG TAB PO (01:54)
[2018-06-13 07:33] LABS: Anion Gap 7.7 mmol/L (3-11); BUN 7 mg/dL (7-18); CO2 23.3 mmol/L (21.0-32.0); CREATININE 0.77 mg/dL (0.55-1.02); Calcium 8.9 mg/dL (8.5-10.1); Chloride 102 mmol/L (98-107); Glucose 102 mg/dL (70-100); Magnesium 1.7 mg/dL (1.8-2.4); Potassium 4.4 mmol/L (3.5-5.1); Sodium 133 mmol/L (136-145)
[2018-06-13 07:38] VITALS: BP 131/87; PULSE 85; RESP 18; TEMP 36.6; O2SAT 94
[2018-06-13] MEDS: Normal Saline 1,000 ML 75 ML IV (08:57)
[2018-06-13] MEDS: Lidocaine 5% Patch 2 PATCH TP (09:27)
[2018-06-13] MEDS: MAGNESIUM SULFATE 1 GM/100 ML BAG IVPB (09:28)
[2018-06-13] MEDS: Gabapentin 100 MG CAP 200 MG PO ×2 (09:28→19:58)
[2018-06-13] MEDS: Carvedilol 6.25 MG TAB PO ×2 (09:28→19:58)
[2018-06-13] MEDS: Potassium Chloride 20 MEQ TABCR PO ×2 (09:28→19:58)
[2018-06-13] MEDS: Thiamine 100 MG TAB PO (09:28)
[2018-06-13] MEDS: Venlafaxine 150 MG CAPCR PO (09:28)
[2018-06-13] MEDS: Cyanocobalamin 500 MCG TAB 1000 MCG PO (09:28)
[2018-06-13] MEDS: Spironolactone 25 MG TAB 50 MG PO (09:29)
[2018-06-13] MEDS: Naltrexone 50 MG TAB PO (09:29)
[2018-06-13] MEDS: Magnesium Oxide 400 MG TAB PO ×3 (09:29→19:58)
[2018-06-13] MEDS: Losartan 50 MG TAB 100 MG PO (09:29)
[2018-06-13] MEDS: Docusate Sodium 100 MG CAP PO ×3 (09:29→19:58)
[2018-06-13] MEDS: Venlafaxine 37.5 MG CAPCR PO (09:29)
[2018-06-13] MEDS: Pantoprazole 40 MG TABCR PO ×2 (09:29→19:58)
[2018-06-13] MEDS: Folic Acid 1 MG TAB PO (09:29)
[2018-06-13] MEDS: amLODIPine 10 MG TAB PO (09:29)
--- NOTE | 2018-06-13 10:23 | PT.INTREAT ---
Date of service: 06/13/18 Time of Service: 10:23 PT Notes Date: 06/13/18 PRECAUTIONS: Fall precautions SUBJECTIVE: Pt sleeping in bed, difficult to arouse. Pt stating all I want to do is sleep. Therapist able to encourage patient to attempt sitting and standing this am. OBJECTIVE: PAIN: no c/o pain BED MOBILITY/TRANSFERS Rolling L/R: independent Supine-sit: HOB 30 degrees, supervision Sit-supine: HOB flat, supervision Sit-stand: SBA with FWW, using R UE more than left due to recent left proximal humerus fracture. Stand-sit: SBA Bed-Chair: unable due to falling asleep during therapy session GAIT Assistive Device: FWW Weight bearing: as tolerated Assist: SBA Distance: 5ftx2 in room with FWW. Pt taking slow small steps, requiring repeated verbal cues to stay alert and attend to task. Pt unsafe to leave up in chair, transferred back to bed with fall alarms activated, pt fell asleep immediately upon returning to bed THEREX: unable to perform, falling asleep ASSESSMENT: Continues to have decreased mobility due to decreased alertness and ability to participate in therapy session. PLAN: Progress transfers Progress gait training TREATMENT CODE/TIME: 23min TAX2 [id number] Sobia Delarosa PT
[2018-06-13] MEDS: CIPROFLOXACIN 400 MG/200 ML BAG 200 MG IVPB ×2 (11:13→21:49)
--- NOTE | 2018-06-13 12:34 | W.PM.PROGNOT ---
Assessment and Plan (1) Left rib fracture: Current visit: No Status: Acute Evidence of b/l Rib fractures, worse on left. Fractures occuring in setting of falls in patient while intoxicated. Pain control, physical therapy. Does not appear to be of significant source of discomfort for patient. Monitor. (2) Alcohol abuse: Current visit: Yes Status: Chronic Potential start of withdrawl, although without significant signs currently. No tremors observed, mental status is appropriate. Maintain on CIWA protocol with scheduled Oxazepam. Monitor vitals, electrolytes carefully. Has previously declined offers for multiple different strategies aimed at assisting her at home and as an outpatient in the past. (3) Chronic alcoholic gastritis: Current visit: Yes Status: Chronic Continue H2 j luis as well as BID PPI. (4) Essential hypertension: Current visit: Yes Status: Chronic Continue CCB, Spironolactone, BB, and ARB. Losartan was discontinued during previous hospitalization in setting of worsening renal function. Monitor creatinine, electrolytes. Currently improved. (5) Elev transaminase/LDH: Current visit: Yes Status: Chronic In patient with ETOH history. (6) Depressive disorder: Current visit: Yes Status: Chronic Continue Venlafaxine, QHS Trazodone. (7) DVT prophylaxis: Current visit: Yes Status: Acute SC Lovenox. (8) Discharge planning issues: Current visit: No Status: Acute Full Code. Subjective Interval history since last seen: 73-year-old female with history of chronic alcoholism and frequent falls while inebriated, with frequent ED visits, admitted from [facility] Emergency Department on 06/11/2018 following a fall at home while intoxicated, with evidence of rib fractures. Ms. Ingram was found on the ground by EMS and brought to [facility] Emergency Department. Initial work-up revealed a visibly intoxicated woman without significant laboratory derangements. CT of the head noted potential of a minimally displaced nasal bone fracture without any acute skull fracture or intracranial process. She also had a negative CT scan of the C-spine. CT abdomen and pelvis note non-displaced fractures of left fifth through eighth posterior lateral ribs, but no pneumothorax. CT of the abdomen showed no acute process. Urinalysis showed evidence of a UTI, with cultures again positive for Kelbsiella. She was also noted to be significantly hypertensive and mildly tachycardic. She was referred for admission for further evaluation and treatment. Patient appears sleepy but appropriate. Nursing reports that she is regularly standing up and ambulate to the commode, but patient herself is currently only minimally interactive physically. She states discomfort and subjective sensation of tremors, but scoring minimally on CIWA. Still responding and appropriate. No overnight events reported. Blood Pressure vastly improved. Afebrile. Exam Narrative Exam Narrative: General: Patient appears comfortable. Sleeping but arousable. Oriented X3. Neck: Supple CV: Regular, nontachycardic, S1S2, No rubs, murmurs, or gallops. Pulmonary: Clear to auscultation bilaterally, no crackles, wheezing, or rhonchi Abdomen: + Bowel Sounds, soft, nontender, nondistended Vascular: No lower extremity edema Objective Objective Clinical Data: Abnormal lab results 06/13/18 Range/Units 06:50 Sodium 133 L (136-145) mmol/L Glucose 102 H (70-100) mg/dL Magnesium 1.7 L (1.8-2.4) mg/dL Vital Signs Temperature 36.6 C 06/13/18 07:38 Temperature Source Skin 06/13/18 07:38 Pulse 85 06/13/18 07:38 Pulse Rhythm Regular 06/13/18 10:58 Respiratory Rate 18 06/13/18 07:38 Respiratory Effort 06/13/18 10:58 Respiratory Depth Normal 06/13/18 10:58 Respiratory Pattern Normal 06/13/18 10:58 Blood Pressure 131/87 06/13/18 07:38 Blood Pressure Position Supine 06/11/18 11:48 Pulse Oximetry 94 L 06/13/18 07:38 Oxygen Delivery Method Room Air 06/13/18 07:38 Oxygen Flow Rate 0 06/13/18 07:38 Pain Level 0 06/12/18 07:22 Intake & Output 06/12/18 06/13/18 06/13/18 23:59 11:59 23:59 Intake Total 1455.0 / 1455.0 1510 / 1510 Output Total 600 / 600 650 / 650 Balance 855.0 / 855.0 860 / 860 Intake: IV 975.0 / 975.0 1000 / 1000 Oral 480 / 480 510 / 510 Output: Urine 600 / 600 650 / 650 Other: Urine Color Yellow Yellow Urine Appearance Clear Clear Urine Odor Normal Comment pt incontinent, pt changed. Brief was soaked Voiding Methods Bedside Commode Bedside Commode Incontinent Laboratory Results WBC 4.39 k/cumm (4.4-10.8) L 06/11/18 12:15 RBC 3.60 m/cumm (4.00-5.20) L 06/11/18 12:15 Hgb 11.2 g/dL (12.0-15.5) L 06/11/18 12:15 Hct 34.7 % (36.0-46.0) L 06/11/18 12:15 MCV 96.4 fL (80-95) H 06/11/18 12:15 MCH 31.1 pg (27.0-33.0) 06/11/18 12:15 MCHC 32.3 g/dL (32.0-36.0) 06/11/18 12:15 RDW 17.8 % (11.7-14.6) H 06/11/18 12:15 Plt Count 199 x1000/uL (130-400) 06/11/18 12:15 MPV 8.9 fL (8.0-11.0) 06/11/18 12:15 Abs Immat Gran (auto) Cancelled 06/11/18 14:36 Immature Gran % 0.2 06/11/18 12:15 Neutrophils % 59.7 06/11/18 12:15 Lymphocytes % 32.3 06/11/18 12:15 Monocytes % 6.2 06/11/18 12:15 Eosinophils % 1.4 06/11/18 12:15 Basophils % 0.2 06/11/18 12:15 Absolute Neutrophils 2.62 k/cumm (1.2-6.7) 06/11/18 12:15 Band Neutrophils Cancelled 06/11/18 14:36 Absolute Lymphocytes 1.42 k/cumm (1.2-3.4) 06/11/18 12:15 Absolute Monocytes 0.27 k/cumm (0.11-0.7) 06/11/18 12:15 Absolute Eosinophils 0.06 k/cumm (0.0-0.7) 06/11/18 12:15 Absolute Basophils 0.01 k/cumm (0.0-0.2) 06/11/18 12:15 Metamyelocytes Cancelled 06/11/18 14:36 Myelocytes Cancelled 06/11/18 14:36 Promyelocytes Cancelled 06/11/18 14:36 Nucleated RBCs Cancelled 06/11/18 14:36 Differential Comment Cancelled 06/11/18 14:36 Atypical Lymphocytes Cancelled 06/11/18 14:36 Other Cell Type Cancelled 06/11/18 14:36 RBC Morphology Cancelled 06/11/18 14:36 Polychromasia Cancelled 06/11/18 14:36 Hypochromasia Cancelled 06/11/18 14:36 Poikilocytosis Cancelled 06/11/18 14:36 Basophilic Stippling Cancelled 06/11/18 14:36 Anisocytosis Cancelled 06/11/18 14:36 Microcytosis Cancelled 06/11/18 14:36 Macrocytosis Cancelled 06/11/18 14:36 Spherocytes Cancelled 06/11/18 14:36 Target Cells Cancelled 06/11/18 14:36 Tear Drop Cells Cancelled 06/11/18 14:36 Ovalocytes Cancelled 06/11/18 14:36 Stomatocytes Cancelled 06/11/18 14:36 [place] Bodies Cancelled 06/11/18 14:36 Brooke Cells Cancelled 06/11/18 14:36 Acanthocytes (Spur) Cancelled 06/11/18 14:36 Schistocytes Cancelled 06/11/18 14:36 PT Cancelled 06/11/18 14:36 INR Cancelled 06/11/18 14:36 APTT Cancelled 06/11/18 14:36 Sodium 133 mmol/L (136-145) L 06/13/18 06:50 Potassium 4.4 mmol/L (3.5-5.1) D 06/13/18 06:50 Chloride 102 mmol/L (98-107) 06/13/18 06:50 Carbon Dioxide 23.3 mmol/L (21.0-32.0) 06/13/18 06:50 Anion Gap 7.7 mmol/L (3-11) 06/13/18 06:50 BUN 7 mg/dL (7-18) 06/13/18 06:50 Creatinine 0.77 mg/dL (0.55-1.02) 06/13/18 06:50 Estimated GFR/1.73 m2 >= 60.00 (mL/min/1.73m2) 06/13/18 06:50 Glucose 102 mg/dL (70-100) H 06/13/18 06:50 Calcium 8.9 mg/dL (8.5-10.1) 06/13/18 06:50 Magnesium 1.7 mg/dL (1.8-2.4) L 06/13/18 06:50 Total Bilirubin 1.1 mg/dL (0.2-1.0) H 06/11/18 12:15 Conjugated Bilirubin 0.27 mg/dL (0.00-0.20) H 06/11/18 12:15 AST 41 U/L (15-37) H 06/11/18 12:15 ALT 40 U/L (12-78) 06/11/18 12:15 Alkaline Phosphatase 119 U/L (46-116) H 06/11/18 12:15 Creatine Kinase 38 U/L (26-192) 06/11/18 12:15 Troponin I < 0.02 ng/mL (0.00-0.06) 06/11/18 12:15 Total Protein 7.1 g/dL (6.4-8.2) 06/11/18 12:15 Albumin 3.7 g/dL (3.4-5.0) 06/11/18 12:15 Lipase 177 U/L (73-393) 06/11/18 12:15 Urine Color Yellow (Yellow) 06/11/18 14:28 Urine Clarity Sl cloudy 06/11/18 14:28 Urine pH 6.0 (5-8) 06/11/18 14:28 Ur Specific [place] 1.015 (1.005-1.025) 06/11/18 14:28 Urine Protein 30 mg/dL (Negative) H 06/11/18 14:28 Urine Ketones Negative mg/dL (Negative) 06/11/18 14:28 Urine Blood Trace-intact (Negative) H 06/11/18 14: Urine Nitrite Negative (Negative) 06/11/18 14:28 Urine Bilirubin Negative (Negative) 06/11/18 14: Urine Urobilinogen 0.2 EU/dL (Up TO 0.2) 06/11/18 14:28 Ur Leukocyte Esterase Negative (Negative) 06/11/18 14:28 Urine RBC 3-5 (0-2) H 06/11/18 14:28 Urine WBC 20-50 HPF (0-5) 06/11/18 14:28 Ur Epithelial Cells Few HPF (Negative) 06/11/18 14:28 Urine Crystals Negative HPF (Negative) 06/11/18 14:28 Urine Bacteria Many HPF (Negative) 06/11/18 14:28 Urine Casts Negative LPF (Negative) 06/11/18 14:28 Urine Mucus Negative (Negative) 06/11/18 14:28 Ur Culture Indicated? Yes 06/11/18 14:28 Urine Glucose Negative mg/dL (Negative) 06/11/18 14:28 Ethyl Alcohol 338.0 mg/dL (<3) 06/11/18 12:15
--- NOTE | 2018-06-13 14:07 | PDOC.CMPRO ---
- If Service Date Differs Date of service: 06/13/18 Time of Service: 14:07 Care Management Progress Note S/O: Leticia is sleeping soundly in bed the three times CM attempts to visit this morning and afternoon. She has been reportedly tired since admission, reporting that all she wants to do is sleep. Per MD, Leticia is potentially beginning to withdrawal. Patient continues to be monitored on the CIWA protocol with scheduled Oxazepam. Leticia's CIWA scores have been nominal; most recently 1, 1, and 4. Leticia has had multiple services through home health and has continually refused to allow staff into her home, or answered the door drunk. CM alerted yesterday that has discharged patient from their service. A: 73 year old female admitted for alcohol abuse and fractured ribs d/t fall. P: Leticia will discharge home when medically ready per MD. Anticipate patient will discharge home with no services. Leticia will transport via private vehicle with her sister vs. [facility] vs taxi. CM will continue to offer assistance to patient and care team regarding discharge planning and disposition.
[2018-06-13 16:06] VITALS: BP 127/81; PULSE 71; RESP 18; TEMP 36.3; O2SAT 97
--- NOTE | 2018-06-13 16:36 | PHARADMIT ---
Addendum entered by Jillian Murillo 06/14/18 11:21: Pharmacy Note Subjective pt with rib fractures from falls after etoh intoxication, scheduled oxazepam ordered Objective CIWA 4 Assessment UC klebsiella connor sens except amp, cipro IV continues, no med changes noted Plan monitor CIWA scores, labs and med changes Original Note: Admission Pharmacy Clinical Review alcohol abuse Code Status Full Code Current Weight 65.771 kg Renally Cleared and Narrow Therapeutic Index Meds Crcl ~47.96 mL/min current meds okay QTc Value / Action Taken BP Control, Fever BP 127/81 afebrile Electrolytes reviewed Na-133 mag-1.7 DVT Prophylaxis enoxaparin Opiate Usage / Scheduled Bowel Regimen Ordered PRN/leoncio and prn Plt/SCr for Heparin / Enoxaparin plt 199 SCr 0.77 INR for Warfarin n/a H/H stable, WBC/Bands h/h 11.2/34.7 wbc 4.39 Antibiotic appropriateness ciprofloxacin Cultures and Sensitivities urine culture grew klebsiella Surgical ABX d/c within 24 hr n/a DM control / Insulin Dosing BG 102 n/a Heart Failure (Check EF%) (AMBER's, B-Block, Diuretics) amlodipine, carvedilol, losartan, spironolactone IV to PO Switch n/a Home Meds Reviewed -separate admin of magnesium and gabapentin -multiple QTc prolonging meds (ondansetron, trazodone, venlafaxine) -potassium and spironolactone may increase the risk of hyperkalemia -multiple [employer] depressants (tramadol, gabapentin) -naltrexone may diminish the therapeutic effect of tramadol -trazodone and venlafaxine may increase the risk of side effects (serotonin syndrome) Home Meds Not Ordered none Comments
[2018-06-13] MEDS: traMADol 50 MG TAB PO (17:16)
[2018-06-13] MEDS: Enoxaparin 40 MG/0.4 ML SYR SC (17:16)
[2018-06-13] MEDS: Senna TAB 2 TAB PO (21:49)
[2018-06-14 00:38] VITALS: BP 116/78; PULSE 79; RESP 18; TEMP 36.8; O2SAT 96
[2018-06-14] MEDS: Normal Saline 1,000 ML 75 ML IV (01:14)
[2018-06-14] MEDS: Acetaminophen 325 MG TAB PO ×2 (02:46→10:51)
[2018-06-14 07:19] LABS: Platelet Count 135 x1000/uL (130-400)
[2018-06-14 07:34] LABS: Anion Gap 5.5 mmol/L (3-11); BUN 9 mg/dL (7-18); CO2 24.5 mmol/L (21.0-32.0); Calcium 8.7 mg/dL (8.5-10.1); Chloride 104 mmol/L (98-107); Glucose 99 mg/dL (70-100); Magnesium 1.9 mg/dL (1.8-2.4); Potassium 4.7 mmol/L (3.5-5.1); Sodium 134 mmol/L (136-145)
[2018-06-14 07:40] VITALS: BP 144/87; PULSE 93; RESP 17; TEMP 36.3; O2SAT 96
[2018-06-14] MEDS: Spironolactone 25 MG TAB 50 MG PO (08:06)
[2018-06-14] MEDS: Folic Acid 1 MG TAB PO (08:07)
[2018-06-14] MEDS: Carvedilol 6.25 MG TAB PO (08:07)
[2018-06-14] MEDS: Pantoprazole 40 MG TABCR PO (08:07)
[2018-06-14] MEDS: Venlafaxine 37.5 MG CAPCR PO (08:07)
[2018-06-14] MEDS: Venlafaxine 150 MG CAPCR PO (08:08)
[2018-06-14] MEDS: Magnesium Oxide 400 MG TAB PO ×2 (08:08→14:31)
[2018-06-14] MEDS: amLODIPine 10 MG TAB PO (08:08)
[2018-06-14] MEDS: Docusate Sodium 100 MG CAP PO ×2 (08:08→14:31)
[2018-06-14] MEDS: Thiamine 100 MG TAB PO (08:08)
[2018-06-14] MEDS: Losartan 50 MG TAB 100 MG PO (08:09)
[2018-06-14] MEDS: Cyanocobalamin 500 MCG TAB 1000 MCG PO (08:09)
[2018-06-14] MEDS: Potassium Chloride 20 MEQ TABCR PO (08:09)
[2018-06-14] MEDS: Naltrexone 50 MG TAB PO (08:10)
[2018-06-14] MEDS: Gabapentin 100 MG CAP 200 MG PO (08:10)
[2018-06-14] MEDS: Lidocaine 5% Patch 2 PATCH TP (08:11)
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
--- NOTE | 2018-06-14 10:43 | PT.INTREAT ---
Date of service: 06/14/18 Time of Service: 10:43 PT Notes Inpatient Physical Therapy Treatment Note Date: 06/14/18 PRECAUTIONS: Fall SUBJECTIVE: Leticia states that she is feeling better today, less tired. She is concerned about staying here and missing her dog's grooming appointment tomorrow. OBJECTIVE: PAIN: No complaints of pain BED MOBILITY/TRANSFERS Supine-sit: S with HOB at 20 degrees Sit-supine: S with HOB at 20 degrees Sit-stand: SBA Stand-sit: SBA GAIT Assistive Device: FWW Weight bearing: Full Assist: SBA Distance: 30' +150' Deviation: Slow pace, minimal complaints of dizziness TOILETING/SELF CARE: Patient toileted with assist for dressing and transfers; assisted with washing while in seated and standing positions. ASSESSMENT: Patient tolerated session with minimal c/o dizziness with gait training and without c/o pain. She was able to tolerate a progression in gait distance with FWW support and SBA. She would benefit from continued gait and transfer training to improve ability to perform these functional tasks with more independence. PLAN: Continue with PT's POC TREATMENT CODE/TIME: 30 minutes; TAx2
[2018-06-14] MEDS: Milk of Magnesia 30 ML CUP PO (10:51)
[2018-06-14] MEDS: CIPROFLOXACIN 400 MG/200 ML BAG 200 MG IVPB (10:52)
[2018-06-14 11:35] VITALS: BP 123/77; PULSE 79; RESP 18; TEMP 36; O2SAT 97
--- NOTE | 2018-06-14 12:00 | DI.CT_ITS ---
SYMPTOMS/DIAGNOSIS: RT FLANK PAIN, RECURRENT UTI CT OF THE ABDOMEN AND PELVIS: The lung bases are unremarkable. Fatty infiltration of the liver is noted. The gallbladder and pancreas are unremarkable. The spleen is unremarkable. When compared with the previous examination renal cysts are again noted. There is nonobstructing left nephrolithiasis. A small left adrenal nodule is unchanged. There is no evidence of bowel obstruction. The appendix is normal and no localized bowel wall abnormality is seen. The bladder is intact. The reproductive organs as visualized appear unremarkable with incidental note made of small calcification in the left adnexa likely lying within the ovary. There is no evidence of abdominal or pelvic free fluid or free air. There is no evidence of an abdominal aortic aneurysm. Degenerative changes involving the lumbar spine are identified. SUMMARY: No evidence of an acute abdomen with note made of fatty infiltration of the liver. Bilateral renal cysts and nonobstructing left nephrolithiasis. Please see the above discussion. ADDENDUM: The study was conducted according to the usual protocol and reveals symmetrical excretion of contrast material by the kidneys. Small bilateral renal cysts are evident. There is no apparent mass. There is no evidence of hydronephrosis. The ureters appear normal with no evidence of ureterolithiasis or ureterectasis. The bladder appears intact. SUMMARY: The urogram reveals symmetrical renal function. Small cysts are seen. There is no evidence of hydronephrosis and the bladder is normal.
[2018-06-14] MEDS: Omnipaque 350 MG/ML 100 ML BTL IJ (12:05)
--- NOTE | 2018-06-14 13:27 | PT.INNT ---
Date of service: 06/14/18 Time of Service: 13:27 PT Notes PHYSICAL THERAPY NOTE 06/14/18 Attempted to see patient for PT session, pt deferred stating she wanted to rest. Sobia Delarosa PT
--- NOTE | 2018-06-14 14:48 | PDOC.CMDIS ---
- If Service Date Differs Date of service: 06/14/18 Time of Service: 14:48 LACE Index Scoring Tool - Questions: Length of Stay (in days): 4 - 6 Acuity (Admit via E.D.?): Yes E.D. Visits: 13 - Answers: Total Score: 11 Risk of Readmission: High Risk Care Management Discharge Reason for Hospitalization: Alcohol abuse Discharge Plan: Leticia will return home today via [facility] taxi. [facility] spoke with JANET Mcdonough, and transport has been arranged for [address] to stop at [facility] for Leticia to get her prescription. CM notified Dr. Medina, as well as Darlene, Observatory Director, of the above. Leticia will have no services at time of DC. She will F/U with PCP and plan of care as prescribed. Patient/Family Education Needs: Review DC instructions, any limitations, and discuss Ask Me Three Services Needed at Discharge: Transportation ([facility])
--- NOTE | 2018-06-14 14:52 | CMDISCH_ITS ---
- If Service Date Differs Date of service: 06/14/18 Time of Service: 14:48 LACE Index Scoring Tool - Questions: Length of Stay (in days): 4 - 6 Acuity (Admit via E.D.?): Yes E.D. Visits: 13 - Answers: Total Score: 11 Risk of Readmission: High Risk Care Management Discharge Reason for Hospitalization: Alcohol abuse Discharge Plan: Leticia will return home today via [facility] taxi. [facility] spoke with JANET Mcdonough, and transport has been arranged for [address] stop at [facility] for Leticia to get her prescription. CM notified Dr. Medina, as well as Darlene, [place], of the above. Leticia will have no services at time of DC. She will F/U with PCP and plan of care as prescribed. Patient/Family Education Needs: Review DC instructions, any limitations, and discuss Ask Me Three Services Needed at Discharge: Transportation ([facility])
--- NOTE | 2018-06-14 14:52 | DSE_ITS ---
Date of service: 06/14/18 Time of Service: 14:47 DS: Diagnosis Discharge Diagnosis (1) Left rib fracture: Status: Acute (2) Alcohol abuse: Status: Chronic (3) Chronic alcoholic gastritis: Status: Chronic (4) Essential hypertension: Status: Chronic (5) Elev transaminase/LDH: Status: Chronic Discharge Plan Disposition Patient Disposition: HOME Condition: Stable Discharge Details Reason For Visit: ETOH, FALLS, MULTIPLE FX'S Admit Date/Time: 06/11/18 16:45 Admit Provider: Robert Medina Attending Provider: Robert Medina Primary Care Provider: Lavelle Galindo Hospital Course Hospital Course: CC: Intoxication, Rib Fractures HPI: 73-year-old female with history of chronic alcoholism and frequent falls while inebriated, with frequent ED visits, presented to [facility] ED following a fall at home while intoxicated. Ms. Ingram was found on the ground by EMS and brought to [facility] Emergency Department. Initial work-up revealed a visibly intoxicated woman without significant laboratory derangements. CT of the head noted potential of a minimally displaced nasal bone fracture without any acute skull fracture or intracranial process. She also had a negative CT scan of the C-spine. CT abdomen and pelvis note non-displaced fractures of left fifth through eighth posterior lateral ribs, but no pneumothorax. CT of the abdomen showed no acute process. She was also noted to be significantly hypertensive and mildly tachycardic. She was referred for admission for further evaluation and treatment. At time of examination the patient was found to be intoxicated but awake and alert, answering questions appropriately. (1) Rib fractures: Evidence of b/l Rib fractures, worse on left. Fractures occuring in setting of falls in patient while intoxicated. Patient was ordered pain control and physical therapy. However, fractures do not appear to be of significant source of discomfort for patient. PT has evaluated her as well, and this afternoon verbally reports safe for her to return home. Unfortunately patient's falls all seem to occur in setting of intoxication. Continue Tramadol, Soma, and Topical Lidoderm. (2) Alcohol abuse: Currently without any signs of withdrawl. Of note, patient also did not have signs of withdrawl during her last hospitalizations. No tremors observed, mental status is appropriate. Maintained on CIWA protocol with scheduled Oxazepam, with stable appearing vitals, electrolytes. Has previously declined offers for multiple different strategies aimed at assisting her at home and as an outpatient in the past. Has also been dropped by Home Health Services due to intoxication during visits, limiting their ability to effectively help patient. Discussed importance of abstinence in detail with patient today. (3) Chronic alcoholic gastritis: Continue H2 j luis as well as BID PPI. (4) Essential hypertension: Continue CCB, Spironolactone, BB, and ARB. Losartan was discontinued during previous hospitalization in setting of worsening renal function, restarted. Blood Pressure appears ideal. (5) Elev transaminase/LDH: In patient with ETOH history. (6) Depressive disorder: Continue Venlafaxine, QHS Trazodone. (7) UTI Urine Culture with Klebsiella. Continue Cipro, currently day #2 of a planned 7 day course of antibiotic therapy. Prior Urine culture from last month also with Klebsiella Pneumoniae. Trazodone currently on hold while patient is being treated with Fluoroquinolone therapy. Patient with reported complaint of Right Flank Pain - Given recurrent nature of UTI a CT Urogram was obtained, showing no evidence of obstruction or hydronephrosis, but with a small left nephrolithiasis. Also with an unchanged small left adrenal nodule. Home Meds and New Rx's Prescriptions: New losartan 50 mg Tablet 100 mg PO DAILY Qty: 30 RF: 0 carisoprodol [Soma] 350 mg Tablet 350 mg PO TID Qty: 15 RF: 0 lidocaine [Lidoderm] 5 % Adhesive Patch,Medicated 2 patch Topical DAILY Qty: 1 RF: 0 ciprofloxacin HCl 500 mg tablet 500 mg PO Q12H Qty: 10 RF: 0 Continue cyanocobalamin (vitamin B-12) [Vitamin B-12] 1,000 MCG tablet 1,000 mcg PO DAILY Qty: 100 RF: 4 fluticasone 16 GM spray,suspension 1 spr NS daily prn Qty: 3 RF: 3 cholecalciferol (vitamin D3) 1,000 UNIT tablet 2 tab PO DAILY Qty: 100 RF: 3 gabapentin 100 MG capsule 2 tab PO BID Qty: 360 RF: 3 folic acid 1 MG tablet 1 mg PO DAILY Qty: 90 RF: 3 venlafaxine 37.5 MG tablet 37.5 mg PO DAILY Qty: 90 RF: 3 naltrexone 50 MG tablet 50 mg PO DAILY Qty: 30 RF: 2 pyridoxine (vitamin B6) [Vitamin B-6] 50 MG tablet 50 mg PO nightly Qty: 60 RF: 4 thiamine mononitrate (vit B1) 100 MG tablet 100 mg PO QAM Qty: 90 RF: 3 potassium chloride 20 MEQ tablet extended release 20 meq PO BID Qty: 180 RF: 3 polyethylene glycol 3350 17 GM powder in packet 17 gm PO DAILY PRN PRN (Reason: Constipation) RF: 0 tramadol 50 MG tablet 50 mg PO Q6H PRN PRNRF: 0 acetaminophen [Mapap Extra Strength] 500 MG tablet 500 mg PO Q6H RF: 0 carvedilol [Coreg] 6.25 mg Tablet 6.25 mg PO BID Qty: 60 RF: 0 venlafaxine 150 mg Capsule,Extended Release 24hr 150 mg PO DAILY Qty: 30 RF: 0 spironolactone 25 mg Tablet 50 mg PO DAILY Qty: 30 RF: 0 magnesium oxide 400 mg (241.3 mg magnesium) Tablet 400 mg PO TID Qty: 120 RF: 0 amlodipine 10 mg Tablet 10 mg PO DAILY Qty: 30 RF: 0 pantoprazole 40 mg Tablet,Delayed Release (Dr/Ec) 40 mg PO BID@729,1999 Qty: 60 RF: 0 ranitidine HCl 150 mg Tablet 150 mg PO BID Qty: 60 RF: 0 ondansetron HCl 4 MG tablet 4 mg PO Q6H PRN PRNQty: 15 RF: 0 Discontinued trazodone 100 mg Tablet 100 mg PO HS PRN PRNQty: 30 RF: 0 Discharge Instructions Instructions: Abuse of Alcohol (DC), Abuse of Alcohol (GEN) Additional Instructions: Please see your Primary Care Physician within [address] Galindo' s office will call you back to set up an appointment with you Stand Alone Forms: Nursing Discharge Form Referrals: Lavelle Galindo [Primary Care Provider] - Activity:: No Strenuous Activity Equipment/Supplies:: No Equipment Needed Diet:: Heart Healthy Discharge Orders Discharge Orders: Discharge Order (Routine); Ordered 06/14/18 Ordered By: Robert Medina Discharge Data Discharge Date/Time-TO BE ENTERED AT DEPARTURE: 06/14/18 15:40 Exam Narrative Exam Narrative: General: Patient appears comfortable. Sleeping but arousable. Oriented X3. Neck: Supple CV: Regular, nontachycardic, S1S2, No rubs, murmurs, or gallops. Pulmonary: Clear to auscultation bilaterally, no crackles, wheezing, or rhonchi Abdomen: + Bowel Sounds, soft, nontender, nondistended Vascular: No lower extremity edema DS: Data Vitals/I&O Vitals and I&O: Vital Signs Temperature 36 C L 06/14/18 11:35 Temperature Source Tympanic 06/14/18 11:35 Pulse 79 06/14/18 11:35 Pulse Rhythm Regular 06/14/18 08:00 Respiratory Rate 18 06/14/18 11:35 Respiratory Effort Non-Labored 06/14/18 08:00 Respiratory Depth Normal 06/14/18 08:00 Respiratory Pattern Normal 06/14/18 08:00 Blood Pressure 123/77 06/14/18 11:35 Blood Pressure Position Supine 06/11/18 11:48 Pulse Oximetry 97 06/14/18 11:35 Oxygen Delivery Method Room Air 06/14/18 11:35 Oxygen Flow Rate 0 06/14/18 11:35 Pain Level 6 06/14/18 11:35 Intake & Output 06/13/18 06/14/18 06/14/18 23:59 11:59 23:59 Intake Total 2130.0 / 2130.0 510 / 510 Output Total 600 / 600 950 / 950 700 / 700 Balance 1530.0 / 1530.0 -440 / -440 -700 / -700 Intake: IV 1400.0 / 1400.0 20 / 20 Oral 730 / 730 490 / 490 Output: Urine 600 / 600 950 / 950 700 / 700 Other: Urine Color Yellow Yellow Yellow Urine Appearance Clear Clear Clear Urine Odor Normal Normal Normal Comment maintained continence at this time Voiding Methods Bedside Commode Diaper Toilet Incontinent Completed studies during hospitalization [Text1]: Exam(s) a CT:CT abdomen & pelvis wo/w SYMPTOMS/DIAGNOSIS: RT FLANK PAIN, RECURRENT UTI CT OF THE ABDOMEN AND PELVIS: The lung bases are unremarkable. Fatty infiltration of the liver is noted. The gallbladder and pancreas are unremarkable. The spleen is unremarkable. When compared with the previous examination renal cysts are again noted. There is nonobstructing left nephrolithiasis. A small left adrenal nodule is unchanged. There is no evidence of bowel obstruction. The appendix is normal and no localized bowel wall abnormality is seen. The bladder is intact. The reproductive organs as visualized appear unremarkable with incidental note made of small calcification in the left adnexa likely lying within the ovary. There is no evidence of abdominal or pelvic free fluid or free air. There is no evidence of an abdominal aortic aneurysm. Degenerative changes involving the lumbar spine are identified. SUMMARY: No evidence of an acute abdomen with note made of fatty infiltration of the liver. Bilateral renal cysts and nonobstructing left nephrolithiasis. Please see the above discussion. ADDENDUM: The study was conducted according to the usual protocol and reveals symmetrical excretion of contrast material by the kidneys. Small bilateral renal cysts are evident. There is no apparent mass. There is no evidence of hydronephrosis. The ureters appear normal with no evidence of ureterolithiasis or ureterectasis. The bladder appears intact. SUMMARY: The urogram reveals symmetrical renal function. Small cysts are seen. There is no evidence of hydronephrosis and the bladder is normal. Exam(s) EXAM: CT Abdomen and Pelvis With Intravenous Contrast CLINICAL HISTORY: 73 years old, female; Injury or trauma; Fall; Initial encounter; Blunt; Generalized; Blunt trauma (contusions or hematomas); Patient HX: S/P fall; Additional info: R/O shoulder (l) / rib fracture, R/O abdominal abnormality/pelvis fracture TECHNIQUE: Axial computed tomography images of the abdomen and pelvis with intravenous contrast. Coronal and sagittal reformatted images were created and reviewed. COMPARISON: No relevant prior studies available. FINDINGS: Liver, spleen, and kidneys intact. No abnormal fluid collections. No extraluminal air. Diffuse degenerative disc and facet disease of the lumbar spine. No acute fracture of the abdomen and pelvis. Impression: No evidence of acute abdominal or pelvic trauma. Exam(s) EXAM: CT Head Without Intravenous Contrast CLINICAL HISTORY: 73 years old, female; Injury or trauma; Fall; Initial encounter; Blunt trauma (contusions or hematomas); Patient HX: S/P fall; Additional info: R/O acute abnormality TECHNIQUE: Axial computed tomography images of the head/brain without intravenous contrast. Coronal and sagittal reformatted images were created and reviewed. COMPARISON: No relevant prior studies available. FINDINGS: Mild diffuse atrophy. Chronic white matter changes of probable small vessel disease. No evidence of hemorrhage. No mass effect. No acute intracranial abnormality. No evidence of acute skull fracture. Irregularity of the nasal bones suggesting minimally displaced fractures. Impression: No evidence of acute intracranial process. Suggestion of minimally displaced fractures. (Nasal Bones) EXAM: CT Cervical Spine Without Intravenous Contrast CLINICAL HISTORY: 73 years old, female; Injury or trauma; Fall; Initial encounter; Blunt trauma (contusions or hematomas); Patient HX: S/P fall; Additional info: R/O acute abnormality TECHNIQUE: Axial computed tomography images of the cervical spine without intravenous contrast. Coronal and sagittal reformatted images were created and reviewed. COMPARISON: FINDINGS: Diffuse degenerative disc and facet disease most pronounced at the C4-5 and C5-6 levels. Slight posterior positioning of C4 with respect to C3 and C6 with respect to C5. This is felt to be due to degenerative disc and facet disease. No evidence of acute fracture. Moderate increased density in the right upper lobe most likely representing scarring. Please see the final report for details as to the local protocol for followup if needed. Impression: No evidence of acute bony injury. -------- Exam(s) a CT:CT chest/abd/pel w a CT:CT head & cervical spine wo SYMPTOMS/DIAGNOSIS: S/P FALL, ? ACUTE ABNORMALITY, ? SHOULDER/RIB FRACTURE CERVICAL SPINE CT: CT examination of the cervical spine was performed without contrast administration. Tracheolaryngeal structures appear intact. No cervical mass or adenopathy seen. Severe degenerative changes of the cervical spine noted. No acute fracture identified. CONCLUSION: No evidence of acute cervical fracture. CRANIAL CT: Noncontrast cranial CT was performed. There is moderate generalized cerebral atrophy. There is no evidence of acute intracranial hemorrhage, mass effect or midline shift. There may be small bilateral lacunar infarcts. Orbital and temporal bone structures appear intact. Visualized paranasal sinuses are well aerated. No calvarial fractures seen. CONCLUSION: No evidence of acute intracranial injury. CHEST, ABDOMEN AND PELVIS CT: CT examination of the chest, abdomen and pelvis was performed with a bolus infusion of 100 cc of Omnipaque 350. There is a 12 mm in diameter rounded right apical intrapulmonary radiodensity, which is apparently unchanged in size in comparison with previous CT of 08/27/2017. CT followup recommended in six to 12 months. No evidence of acute consolidation, pulmonary contusion, pleural effusion or pneumothorax. No evidence of vascular injury in the thorax. No evidence of pulmonary embolic disease. No mediastinal or hilar mass or adenopathy seen. Multiple rib fractures seen bilaterally, which appear to be old. No additional bony abnormalities seen. No vascular injury identified on scanning of the abdomen or pelvis. Hepatic steatosis noted. Liver and spleen otherwise unremarkable in appearance, although some image degradation from motion is noted. The gallbladder and bile ducts are CT normal, as is the pancreas. Bilateral renal cysts appear to be present. No evidence of acute renal or adrenal injury. No abdominal or pelvic adenopathy seen. No significant abdominal wall hernia seen. No evidence of bowel injury or bowel obstruction. No bony injury identified on scanning of the chest, abdomen and pelvis. Exam(s) a CT:CT chest/abd/pel w a CT:CT head & cervical spine wo SYMPTOMS/DIAGNOSIS: S/P FALL, ? ACUTE ABNORMALITY, ? SHOULDER/RIB FRACTURE CERVICAL SPINE CT: CT examination of the cervical spine was performed without contrast administration. Tracheolaryngeal structures appear intact. No cervical mass or adenopathy seen. Severe degenerative changes of the cervical spine noted. No acute fracture identified. CONCLUSION: No evidence of acute cervical fracture. CRANIAL CT: Noncontrast cranial CT was performed. There is moderate generalized cerebral atrophy. There is no evidence of acute intracranial hemorrhage, mass effect or midline shift. There may be small bilateral lacunar infarcts. Orbital and temporal bone structures appear intact. Visualized paranasal sinuses are well aerated. No calvarial fractures seen. CONCLUSION: No evidence of acute intracranial injury. CHEST, ABDOMEN AND PELVIS CT: CT examination of the chest, abdomen and pelvis was performed with a bolus infusion of 100 cc of Omnipaque 350. There is a 12 mm in diameter rounded right apical intrapulmonary radiodensity, which is apparently unchanged in size in comparison with previous CT of 08/27/2017. CT followup recommended in six to 12 months. No evidence of acute consolidation, pulmonary contusion, pleural effusion or pneumothorax. No evidence of vascular injury in the thorax. No evidence of pulmonary embolic disease. No mediastinal or hilar mass or adenopathy seen. Multiple rib fractures seen bilaterally, which appear to be old. No additional bony abnormalities seen. No vascular injury identified on scanning of the abdomen or pelvis. Hepatic steatosis noted. Liver and spleen otherwise unremarkable in appearance, although some image degradation from motion is noted. The gallbladder and bile ducts are CT normal, as is the pancreas. Bilateral renal cysts appear to be present. No evidence of acute renal or adrenal injury. No abdominal or pelvic adenopathy seen. No significant abdominal wall hernia seen. No evidence of bowel injury or bowel obstruction. No bony injury identified on scanning of the chest, abdomen and pelvis. A rounded presacral mass measures about 26 mm in diameter and appears unchanged from previous CT of 08/27/2017. Labs on day of discharge: Labs from last 24 hours 06/14/18 06/14/18 06:40 06:40 Plt Count 135 Sodium 134 L Potassium 4.7 Chloride 104 Carbon Dioxide 24.5 Anion Gap 5.5 BUN 9 Creatinine 1.00 Estimated GFR/1.73 m2 54.50 Glucose 99 Calcium 8.7 Magnesium 1.9
--- NOTE | 2018-06-14 14:58 | PT.INDS ---
Date of service: 06/14/18 Time of Service: 14:59 PT Notes Inpatient Physical Therapy Discharge Summary Date: 06/14/18 Dates of Service: 06/12/18-06/14 SUBJECTIVE: NT OBJECTIVE: 06/12/18-06/14 BED MOBILITY/TRANSFERS: Supine-sit: supervision Sit-supine: supervision Sit-stand: SBA with FWW Stand-sit: SBA GAIT: SBA with FWW 150ft BALANCE: Static Sitting balance: normal Dynamic sitting balance: normal Static Standing balance: fair Dynamic standing balance: fair ASSESSMENT: Pt is a 73 yr old female admitted for alcohol withdrawal s/p recent left proximal humeral fracture s/p fall at home, now with non-displaced fractures left 5th-8th ribs, in setting of depression, anxiety, alcohol abuse with multiple rehab attempts, alcoholic gastritis, alcoholic hepatitis, Wernicke's encephalopathy, chronic back pain, osteoarthritis. Patient was seen for 4 visits. Progressed from unable to gait train to SBA with FWW 150ft. Pt is being discharged to home today, home PT recommended for continued strengthening and mobility training. GOALS x 1week 1. Supine-sit: HOB flat no rails, I 2. Sit-supine: HOB flat no rails, I 3. Sit-stand: S with FWW 4. Stand-sit: S 5. Bed-Chair: S with FWW 6. Chair-bed: S with FWW 7. Gait: S with FWW, 75ft Pt did not meet therapy goals prior to discharge, recommend home PT follow up DISCHARGE RECOMMENDATIONS Home with home PT G codes in the area of mobility, walking and moving: projected status GP [id number] and discharge status GP [id number] Sobia Delarosa PT
--- NOTE | 2018-06-14 15:02 | INDS_ITS ---
Date of service: 06/14/18 Time of Service: 14:59 PT Notes Inpatient Physical Therapy Discharge Summary Date: 06/14/18 Dates of Service: 06/12/18-06/14 SUBJECTIVE: NT OBJECTIVE: 06/12/18-06/14 BED MOBILITY/TRANSFERS: Supine-sit: supervision Sit-supine: supervision Sit-stand: SBA with FWW Stand-sit: SBA GAIT: SBA with FWW 150ft BALANCE: Static Sitting balance: normal Dynamic sitting balance: normal Static Standing balance: fair Dynamic standing balance: fair ASSESSMENT: Pt is a 73 yr old female admitted for alcohol withdrawal s/p recent left proximal humeral fracture s/p fall at home, now with non-displaced fractures left 5th-8th ribs, in setting of depression, anxiety, alcohol abuse with multiple rehab attempts, alcoholic gastritis, alcoholic hepatitis, Wernicke 's encephalopathy, chronic back pain, osteoarthritis. Patient was seen for 4 visits. Progressed from unable to gait train to SBA with FWW 150ft. Pt is being discharged to home today, home PT recommended for continued strengthening and mobility training. GOALS x 1week 1. Supine-sit: HOB flat no rails, I 2. Sit-supine: HOB flat no rails, I 3. Sit-stand: S with FWW 4. Stand-sit: S 5. Bed-Chair: S with FWW 6. Chair-bed: S with FWW 7. Gait: S with FWW, 75ft Pt did not meet therapy goals prior to discharge, recommend home PT follow up DISCHARGE RECOMMENDATIONS Home with home PT G codes in the area of mobility, walking and moving: projected status GP [id number]- CK and discharge status GP [id number] CK Sobia Delarosa PT
== END 2018-06-14 16:28 | disposition home or self-care (01) | DRG 184 ==
LOC: ER 16:58 → MS 17:07
PROVIDERS: Admitting Provider Internal Medicine; Emergency Provider Physician Assistant; PCP Family Medicine; Visit Provider Internal Medicine
DX: S22.43XA Multiple fractures of ribs, bilateral, initial encounter for closed fracture (principal); N39.0 Urinary tract infection, site not specified; S02.2XXA Fracture of nasal bones, initial encounter for closed fracture; W19.XXXA Unspecified fall, initial encounter; Z91.81 History of falling; Y92.019 Unspecified place in single-family (private) house as the place of occurrence of the external cause; F10.220 Alcohol dependence with intoxication, uncomplicated; K29.20 Alcoholic gastritis without bleeding; Y90.8 Blood alcohol level of 240 mg/100 ml or more; B96.1 Klebsiella pneumoniae [K. pneumoniae] as the cause of diseases classified elsewhere; Z16.11 Resistance to penicillins; Z23 Encounter for immunization; I10 Essential (primary) hypertension; R00.0 Tachycardia, unspecified; R74.0 Nonspecific elevation of levels of transaminase and lactic acid dehydrogenase [LDH]; F32.9 Major depressive disorder, single episode, unspecified
CPT/HCPCS: 36415; 74177; 80048; 80053; 80076; 82550; 83690; 87077; 93005; 96365; 96366; 97162; 97530; 99222; 99232; 99239; 99285; J1650; 70450; 71260; 72125; 74178; 80320; 81003; 81015; 83735; 84484; 85025; 85049; 85610; 85730; 87086; 87186; 93010; J0744; J3475; J3490

== ENCOUNTER 2018-06-26 13:32 | Inpatient (IN) | payer OTHER, SELFPAY ==
[2018-06-26] VITALS (35 sets, daily range): BP systolic 140–217; BP diastolic 80–172; PULSE 102–128; RESP 16–38; TEMP 36.6–37.2; O2SAT 95–99
[2018-06-26] MEDS: Ondansetron 4 MG/2 ML VIAL IVP (13:49)
[2018-06-26] MEDS: LORazepam 2 MG/ML VIAL 1 MG IM (13:49)
[2018-06-26] MEDS: Normal Saline 1,000 ML 1000 ML IV (13:51)
[2018-06-26 14:06] LABS: Abs Immature Grans 0.02 k/cumm (0.0-0.09); Absolute Basophil Count 0.02 k/cumm (0.0-0.2); Absolute Lymphocyte Count 0.22 k/cumm (1.2-3.4); Absolute Monocyte Count 0.39 k/cumm (0.11-0.7); Absolute Neutrophil Count 9.92 k/cumm (1.2-6.7); Basophils % 0.2; HCT 32.6 % (36.0-46.0); HGB 10.8 g/dL (12.0-15.5); Immature Grans % 0.2; Lymphocytes % 2.1; Mean Corp. HGB Concentration 33.1 g/dL (32.0-36.0); Mean Corpuscular Hemoglobin 31.7 pg (27.0-33.0); Mean Corpuscular Volume 95.6 fL (80-95); Mean Platelet Volume 8.8 fL (8.0-11.0); Monocytes % 3.7; Neutrophils % 93.8; Platelet Count 233 x1000/uL (130-400); RBC 3.41 m/cumm (4.00-5.20); RBC Distribution Width 17.8 % (11.7-14.6); White Blood Cell Count 10.57 k/cumm (4.4-10.8)
[2018-06-26 14:17] LABS: ALT 31 U/L (12-78); AST 31 U/L (15-37); Albumin 4.1 g/dL (3.4-5.0); Alkaline Phosphatase 97 U/L (46-116); Anion Gap 20.2 mmol/L (3-11); BUN 13 mg/dL (7-18); Bilirubin, Total 1.5 mg/dL (0.2-1.0); CO2 22.8 mmol/L (21.0-32.0); CREATININE 1.03 mg/dL (0.55-1.02); Calcium 10.1 mg/dL (8.5-10.1); Chloride 97 mmol/L (98-107); Estimated GFR 52.67 (mL/min/1.73m2); Glucose 220 mg/dL (70-100); Lipase 114 U/L (73-393); Magnesium 1.2 mg/dL (1.8-2.4); Sodium 140 mmol/L (136-145); Total Protein 7.6 g/dL (6.4-8.2)
[2018-06-26 14:25] LABS: Potassium 2.9 mmol/L (3.5-5.1); Troponin I < 0.02 ng/mL (0.00-0.06)
[2018-06-26 14:41] LABS: ETHANOL BLOOD < 3.0 mg/dL (<3)
[2018-06-26 14:55] LABS: Bilirubin Negative (Negative); Blood Trace-intact (Negative); Clarity Clear; Glucose 500 mg/dL (Negative); Ketones Negative (Negative); Leukocyte Esterase Negative (Negative); Nitrite Negative (Negative); Urobilinogen 0.2 EU/dL (Up TO 0.2); pH 7.5 (5-8)
[2018-06-26] MEDS: MAGNESIUM SULFATE 1 GM/100 ML BAG IVPB (15:08)
[2018-06-26] MEDS: THIAMINE 100 MG in Normal Saline 100 ML 200 MG IVPB (15:09)
[2018-06-26 15:12] LABS: BE (Venous) 5.3 mmol/L (-3-3); HCO3 (Venous) 28 mmol/L (22-28); O2 Sat (Venous) 94 % (70-80); TCO2 (Venous) 26 mmol/L (22-29); pCO2 (Venous) 35 mm/Hg (34-47); pH (Venous) 7.51 (7.32-7.43); pO2 (Venous) 66 mm/Hg (28-44)
[2018-06-26 15:20] LABS: Bacteria Rare HPF (Negative); Crystals Negative HPF (Negative); Epithelial Cells Rare HPF (Negative); Mucus Negative (Negative); Other Cells Rare Renal (Negative); RBC 0-2 (0-2); WBC 0-2 HPF (0-5)
[2018-06-26 15:21] LABS: C & S Indicated? No
[2018-06-26] MEDS: DEXTROSE 5%-0.45% SALINE 1,000 ML 150 ML IV (15:35)
--- NOTE | 2018-06-26 16:09 | W.PM.HP.N ---
Date of service: 06/26/18 Time of Service: 16:10 Assessment and Plan (1) DVT prophylaxis: Current visit: No Status: Acute SC Lovenox (2) Chronic alcoholic gastritis: Current visit: No Status: Chronic With acute reports of epigastric discomfort and N/V occurring prior to presentation to the ER. IV Protonix BID in addition to home dosage of ranitidine. Will also add Sucralfate ACHS in case she has developed an ulcer. Monitor daily labs and heme test stool and vomitus. If acutely bleeding stop SC Lovenox and consider surgical consult. (3) Essential hypertension: Current visit: No Status: Chronic Worsened today due to inability to keep anti-hypertensives down. Continue home regimen, but add IV hydralazine for acute management for sustained SBP > 180mm Hg. (4) Depressive disorder: Current visit: No Status: Chronic Continue Venlafaxine at home dose. Consider psych referral as her depression seems a major contributor to her alcohol abuse (5) Alcohol abuse: Current visit: No Status: Chronic Ongoing. Was recently ETOH free for 1 month, however became lonely upon her return home and turned to drinking again. Has tried AA in the past without success/benefit. CM involvement will be important in terms of safe D/C planning as well as connecting Leticia to various community resources on substance abuse. She would be a great candidate for long term care phlebotomist inpatient substance abuse program if possible. (6) Alcohol withdrawal: Current visit: No Status: Chronic CIWA per protocol with benzos PRN. Has been alcohol free for 72 hours without seizure activity or signs of withdrawal (7) Hypokalemia: Current visit: Yes Status: Acute Received 20 mEq in the ER and I have ordered an additional 40 mEq to be given via IV. Maintain on continuous cardiac monitoring to evaluate for arrhythmias. Resume home potassium supplementation. Receiving banana bag in the ER. (8) Hypomagnesemia: Current visit: Yes Status: Acute Recieved 1 Gm in the ER and I have written for an additional 4 Gm's to be given on the floor. Telemetry as above for monitoring of cardiac arrhythmias. History of Present Illness Chief Complaint: ETOH withdrawal, epigastric pain Narrative: Leticia is a 73-year-old with ongoing alcoholism requiring frequent hospitalizations for acute alcohol withdrawal, falls while intoxicated resulting in injury, hypertension, hyperlipidemia, depression, alcohol induced gastritis, history of [place] encephalopathy, GERD, anemia who presents to the emergency department today wanting to withdrawal from alcohol and with complaints of epigastric pain with associated nausea. Leticia reports this happens frequently towards the end of the month. This is typically when her benefits run out and she no longer has money to purchase alcohol. She then acutely withdrawals from alcohol at home. Today she also reports severe epigastric discomfort that remains localized and does not radiate. This is associated with nausea and vomiting. In fact she took her morning medications and proceeded to vomit and suspects that is why her blood pressure is elevated in the emergency room. She did not notice any blood or coffee-ground appearance to her vomitus. Has received IV antiemetics while in the emergency room. In the emergency department workup was notable for hypertension, tachycardia, chronic anemia, hypokalemia with a potassium of 2.9, chloride 97, anion gap 20.2 creatinine 1.03, glucose 220, magnesium 1.2, total bilirubin 1.5. Alcohol level was normal, Leticia reports she has not had a drink in 3 days. First troponin negative at less than 0.02. Leticia also reports she was recently seen in the emergency department after sustaining a fall sustaining a fracture to her right arm/shoulder. Review of Systems Review of Systems Review of Systems: 10 point ROS obtained with pertinent positives noted in HPI, otherwise negative. Meds Home Medications Medication Instructions Recorded Confirmed Type cholecalciferol (vitamin D3) 2 tab PO DAILY #100 tab-cap 09/03/16 06/11/18 History cyanocobalamin (vitamin B-12) 1,000 mcg PO DAILY #100 tab-cap 09/03/16 06/11/18 History [Vitamin B-12] fluticasone 1 spr NS daily prn #3 bottle 09/03/16 06/11/18 History gabapentin 2 tab PO BID #360 cap 03/25/17 06/11/18 History folic acid 1 mg PO DAILY #90 tab 07/26/17 06/11/18 Rx naltrexone 50 mg PO DAILY #30 tab-cap 11/04/17 06/11/18 Rx pyridoxine (vitamin B6) [Vitamin 50 mg PO nightly #60 cap 11/04/17 06/11/18 Rx B-6] thiamine mononitrate (vit B1) 100 mg PO QAM #90 tab 11/04/17 06/11/18 Rx venlafaxine 37.5 mg PO DAILY #90 tab-cap 11/04/17 06/11/18 Rx ondansetron HCl 4 mg PO Q6H PRN PRN #15 tab-cap 12/21/17 06/11/18 Rx potassium chloride 20 meq PO BID #180 tab-cap 03/30/18 06/11/18 Rx acetaminophen [Mapap Extra 500 mg PO Q6H tab 04/17/18 06/11/18 Rx Strength] polyethylene glycol 3350 17 gm PO DAILY PRN PRN packet 04/17/18 06/11/18 Rx tramadol 50 mg PO Q6H PRN PRN tab 04/17/18 06/11/18 Rx amlodipine 10 mg PO DAILY #30 tab 05/24/18 06/11/18 Rx carvedilol [Coreg] 6.25 mg PO BID #60 tab 05/24/18 06/11/18 Rx magnesium oxide 400 mg PO TID #120 tab 05/24/18 06/11/18 Rx pantoprazole 40 mg PO BID@0730,2000 #60 tab 05/24/18 06/11/18 Rx ranitidine HCl 150 mg PO BID #60 tab 05/24/18 06/11/18 Rx spironolactone 50 mg PO DAILY #30 tab 05/24/18 06/11/18 Rx venlafaxine 150 mg PO DAILY #30 cap 05/24/18 06/11/18 Rx carisoprodol [Soma] 350 mg PO TID #15 tab 06/14/18 Rx ciprofloxacin HCl 500 mg PO Q12H #10 tab 06/14/18 Rx lidocaine [Lidoderm] 2 patch TOPICAL DAILY #1 pkg 06/14/18 Rx losartan 100 mg PO DAILY #30 tab 06/14/18 Rx Allergies Allergy/AdvReac Type Severity Reaction Status Date / Time Penicillins Allergy Mild Rash Unverified 05/17/18 00:43 ramipril Allergy Unknown ITCHING Unverified 05/17/18 00:43 meperidine [From Demerol] AdvReac Severe Nausea Unverified 05/17/18 00:43 bupropion AdvReac Mild GI upset Unverified 05/17/18 00:43 AMBER Inhibitors AdvReac Unknown COUGH Unverified 05/17/18 00:43 alendronate sodium AdvReac Unknown GI Distress Unverified 05/17/18 00:43 clarithromycin AdvReac Unknown intolerant Unverified 05/17/18 00:43 paroxetine AdvReac Unknown Diarrhea Unverified 05/17/18 00:43 Exam Const General: cooperative, well developed, disheveled, frail appearing and ill appearing Nutritional Appearance: average body habitus and well nourished Orientation: alert, awake and oriented x3 HENMT Head: normal to inspection Ears: hearing grossly normal bilaterally General nose exam: external nose normal Face and sinus: normal facial exam Mouth: oral mucosae normal Teeth and gingiva: dentition normal Throat: posterior oropharynx normal Eyes General: appearance normal, both eyes and all related structures Alignment and Position: alignment normal Eyelids: eyelids normal Conjunctivae: conjunctivae normal Sclera: sclerae normal Pupils: PERRL EOM: EOM intact bilaterally Neck Neck: normal visual inspection and no JVD Resp Effort & Inspection: normal respiratory effort Auscultation: clear to auscultation bilaterally Cardio Jugular venous pressure: no JVD Palpation: normal PMI Rate: regular rate and tachycardic Rhythm: regular rhythm Heart Sounds: S1 normal and S2 normal GI Inspection: normal to inspection Palpation: soft, no hepatosplenomegaly and tender (suprapubic tenderness and epigastric tenderness) Auscultation: normal bowel sounds General: other (+ urinary incontinence) Neuro General: alert, awake, oriented x3 and no focal motor deficits Cognition: normal cognition Speech: speech normal Motor: muscle tone normal throughout Psych Appearance: disheveled Speech and Movement: speech and movement normal Affect: sad and indifferent Results Labs : 06/26/18 13:50 06/26/18 13:50 Laboratory Results - last 24 hr 06/26/18 06/26/18 06/26/18 13:50 13:50 14:50 WBC 10.57 RBC 3.41 L Hgb 10.8 L Hct 32.6 L MCV 95.6 H MCH 31.7 MCHC 33.1 RDW 17.8 H Plt Count 233 MPV 8.8 Immature Gran % 0.2 Neutrophils % 93.8 Lymphocytes % 2.1 Monocytes % 3.7 Eosinophils % 0.0 Basophils % 0.2 Absolute Neutrophils 9.92 H Absolute Lymphocytes 0.22 L Absolute Monocytes 0.39 Absolute Eosinophils 0.00 Absolute Basophils 0.02 VBG pH VBG pCO2 VBG pO2 VBG HCO3 VBG Total CO2 VBG O2 Saturation VBG Base Excess Sodium 140 Potassium 2.9 L* Chloride 97 L Carbon Dioxide 22.8 Anion Gap 20.2 H BUN 13 Creatinine 1.03 H Estimated GFR/1.73 m2 52.67 Glucose 220 H Calcium 10.1 Magnesium 1.2 L Total Bilirubin 1.5 H AST 31 ALT 31 Alkaline Phosphatase 97 Troponin I < 0.02 Total Protein 7.6 Albumin 4.1 Lipase 114 Urine Color Straw Urine Clarity Clear Urine pH 7.5 Ur Specific [place] 1.020 Urine Protein 100 H Urine Ketones Negative Urine Blood Trace-intact H Urine Nitrite Negative Urine Bilirubin Negative Urine Urobilinogen 0.2 Ur Leukocyte Esterase Negative Urine RBC 0-2 Urine WBC 0-2 Ur Epithelial Cells Rare Urine Crystals Negative Urine Bacteria Rare Urine Casts Comment Urine Mucus Negative Urine Other Rare renal Ur Culture Indicated? No Urine Glucose 500 H Ethyl Alcohol < 3.0 06/26/18 15:00 WBC RBC Hgb Hct MCV MCH MCHC RDW Plt Count MPV Immature Gran % Neutrophils % Lymphocytes % Monocytes % Eosinophils % Basophils % Absolute Neutrophils Absolute Lymphocytes Absolute Monocytes Absolute Eosinophils Absolute Basophils VBG pH 7.51 H VBG pCO2 35 VBG pO2 66 H VBG HCO3 28 VBG Total CO2 26 VBG O2 Saturation 94 H VBG Base Excess 5.3 H Sodium Potassium Chloride Carbon Dioxide Anion Gap BUN Creatinine Estimated GFR/1.73 m2 Glucose Calcium Magnesium Total Bilirubin AST ALT Alkaline Phosphatase Troponin I Total Protein Albumin Lipase Urine Color Urine Clarity Urine pH Ur Specific [place] Urine Protein Urine Ketones Urine Blood Urine Nitrite Urine Bilirubin Urine Urobilinogen Ur Leukocyte Esterase Urine RBC Urine WBC Ur Epithelial Cells Urine Crystals Urine Bacteria Urine Casts Urine Mucus Urine Other Ur Culture Indicated? Urine Glucose Ethyl Alcohol Last Vital Signs Temp 36.8 C 06/26/18 15:26 Pulse 121 H 06/26/18 15:26 Resp 23 06/26/18 15:26 BP 199/108 H 06/26/18 15:26 Pulse Ox 95 06/26/18 15:26
[2018-06-26] MEDS: POTASSIUM CHLORIDE 20 MEQ/100 ML BAG 50 MEQ IVPB (16:12)
[2018-06-26] MEDS: Sucralfate 1 GM TAB PO ×2 (16:16→21:58)
--- NOTE | 2018-06-26 17:17 | DI.CT_ITS ---
SYMPTOMS/DIAGNOSIS: ABDOMINAL PAIN CT ABDOMEN AND PELVIS: Comparison is 05/10/17. Mild dependent atelectatic changes are seen in the lung bases. The dome of the liver is not included on the film. The liver is normal in size and appearance. No hepatic mass is seen. The gallbladder is negative. No biliary ductal dilatation is seen. The portal and superior mesenteric veins are patent. The pancreas and spleen are unremarkable. The left adrenal nodules are stable. The right adrenal gland is unremarkable. The kidneys are normal in size. There are bilateral renal cysts, which appear stable. No suspicious solid renal masses or obstruction is seen. The urinary bladder is intact. The reproductive organs are grossly unremarkable. The abdominal aorta is of normal caliber. No significant abdominal or pelvic adenopathy, ascites or pneumoperitoneum is present. The bowel shows no evidence of obstruction. There is a moderate amount of retained stool present. No findings to suggest an acute appendicitis. Note is made of a small hiatal hernia. Note is made of small bilateral fat-containing inguinal hernias. The 3.2 x 2.8 cm soft tissue presacral mass is unchanged. It is nonspecific. Degenerative changes are again seen in the spine. Alignment of the spine is unchanged. The compression deformity of the inferior endplate of T12 is unchanged. IMPRESSION: 1. No evidence of an acute abdomen or pelvis. 2. Stable presacral soft tissue mass. 3. Bilateral fat-containing inguinal hernias and a small hiatal hernia.
[2018-06-26] MEDS: Omnipaque 350 MG/ML 100 ML BTL IJ (17:18)
--- NOTE | 2018-06-26 17:46 | DI.VRAD_ITS ---
EXAM: CT Abdomen and Pelvis With Intravenous Contrast CLINICAL HISTORY: 73 years old, female; Pain; Abdominal pain TECHNIQUE: Axial computed tomography images of the abdomen and pelvis with intravenous contrast. Coronal and sagittal reformatted images were created and reviewed. CONTRAST: 93 mL of Omnipaque 350 administered intravenously. COMPARISON: UN CT ABDOMEN PELVIS WO/W 06/14/2018 11:30 AM FINDINGS: Lung bases: Mild bibasilar dependent atelectasis of the lung bases. Mediastinum: Small hiatal hernia is present. ABDOMEN: Liver: Unremarkable. No mass. Gallbladder and bile ducts: Unremarkable. No calcified stones. No ductal dilation. Pancreas: Unremarkable. No mass. No ductal dilation. Spleen: Unremarkable. No splenomegaly. Adrenals: Unremarkable. No mass. Kidneys and ureters: Fluid density cysts are present in both kidneys, largest on the right measuring 3 cm. Additional small subcentimeter low density lesions in both kidneys, too small to characterize though statistically representing cysts. Nonspecific bilateral perinephric stranding. No hydronephrosis. No nephrolithiasis. He Stomach and bowel: Unremarkable. No obstruction. No mucosal thickening. PELVIS: Appendix: No findings to suggest acute appendicitis. Bladder: Unremarkable. No mass. Reproductive: Unremarkable as visualized. ABDOMEN and PELVIS: Intraperitoneal space: Unremarkable. No free air. No significant fluid collection. Bones/joints: Multiple old healed bilateral rib fractures. Unchanged mild chronic compression deformity of the inferior endplate of T12. No dislocation. Soft tissues: Chronic unchanged approximately 3.2 x 2.8 cm soft tissue mass anterior to the sacrum. Small fat containing right inguinal hernia. Small fat containing left inguinal hernia. Vasculature: Atherosclerotic calcifications of the aorta and major branches. No abdominal aortic aneurysm. Lymph nodes: Unremarkable. No enlarged lymph nodes. IMPRESSION: 1. Small hiatal hernia. 2. Small bilateral fat-containing inguinal hernias. 3. Chronic unchanged approximately 3.2 x 2.8 cm soft tissue mass anterior to the sacrum. 4. Other chronic findings as above. Dictated and Authenticated by: Jason Durant MD. Ordering:TETO KEEN MD
[2018-06-26 18:29] LABS: *AMPHETAMINES SCREEN URINE Negative (Negative); *BARBITURATES SCREEN URINE Negative (Negative); *BENZODIAZEPINES SCREEN URINE Negative (Negative); Cannabinoids THC Negative (Negative); Cocaine Screen,Urine Negative (Negative); METHADONE URINE SCREEN Negative (Negative); OPIATES URINE SCREEN Negative (Negative)
[2018-06-26 18:32] LABS: Troponin I < 0.02 ng/mL (0.00-0.06)
[2018-06-26 18:36] LABS: Tricyclic Antidepressants Negative (Negative)
[2018-06-26] MEDS: Enoxaparin 40 MG/0.4 ML SYR SC (21:42)
[2018-06-26] MEDS: Pantoprazole 40 MG VIAL IVP (21:43)
[2018-06-26] MEDS: Normal Saline Flush 10 ML SYR IVP (21:43)
[2018-06-26] MEDS: Gabapentin 100 MG CAP 200 MG PO (21:48)
[2018-06-26] MEDS: Carvedilol 6.25 MG TAB PO (21:48)
[2018-06-26] MEDS: Magnesium Oxide 400 MG TAB PO (21:50)
[2018-06-26] MEDS: Potassium Chloride 10 MEQ TABCR 20 MEQ PO (21:50)
[2018-06-26] MEDS: Normal Saline 1,000 ML 125 ML IV (22:21)
[2018-06-27] VITALS (13 sets, daily range): BP systolic 116–161; BP diastolic 74–101; PULSE 72–96; RESP 16–20; TEMP 36–37.2; O2SAT 92–97
[2018-06-27] MEDS: MAGNESIUM SULFATE 4 GM/100 ML BAG IVPB (01:39)
[2018-06-27] MEDS: Acetaminophen 325 MG TAB PO (02:01)
[2018-06-27 07:20] LABS: Abs Immature Grans 0.01 k/cumm (0.0-0.09); Absolute Basophil Count 0.01 k/cumm (0.0-0.2); Absolute Eosinophil Count 0.01 k/cumm (0.0-0.7); Absolute Lymphocyte Count 0.73 k/cumm (1.2-3.4); Absolute Monocyte Count 0.81 k/cumm (0.11-0.7); Absolute Neutrophil Count 4.99 k/cumm (1.2-6.7); Basophils % 0.2; Eosinophils % 0.2; HGB 9.9 g/dL (12.0-15.5); Immature Grans % 0.2; Lymphocytes % 11.1; Mean Corp. HGB Concentration 31.9 g/dL (32.0-36.0); Mean Corpuscular Hemoglobin 30.9 pg (27.0-33.0); Mean Corpuscular Volume 96.9 fL (80-95); Mean Platelet Volume 9.4 fL (8.0-11.0); Monocytes % 12.3; Platelet Count 215 x1000/uL (130-400); RBC Distribution Width 17.8 % (11.7-14.6); White Blood Cell Count 6.56 k/cumm (4.4-10.8)
[2018-06-27 07:33] LABS: Anion Gap 7.6 mmol/L (3-11); BUN 13 mg/dL (7-18); CO2 28.4 mmol/L (21.0-32.0); CREATININE 0.83 mg/dL (0.55-1.02); Calcium 9.6 mg/dL (8.5-10.1); Chloride 97 mmol/L (98-107); Glucose 132 mg/dL (70-100); PHOSPHORUS 2.8 mg/dL (2.6-4.7); Potassium 3.2 mmol/L (3.5-5.1); Sodium 133 mmol/L (136-145)
[2018-06-27 07:40] LABS: Magnesium 4.4 mg/dL (1.8-2.4); Troponin I < 0.02 ng/mL (0.00-0.06)
[2018-06-27 08:33] LABS: Anisocytosis 1+; Diff Comment RBC Morph Reviewed; Hypochromasia 1+; Polychromasia Present
[2018-06-27 08:34] LABS: Magnesium 3.9 mg/dL (1.8-2.4)
[2018-06-27] MEDS: Thiamine 100 MG TAB PO (09:26)
[2018-06-27] MEDS: Carvedilol 6.25 MG TAB PO ×2 (09:26→20:05)
[2018-06-27] MEDS: Losartan 50 MG TAB 100 MG PO (09:26)
[2018-06-27] MEDS: Normal Saline Flush 10 ML SYR IVP ×2 (09:26→20:07)
[2018-06-27] MEDS: Gabapentin 100 MG CAP 200 MG PO ×2 (09:26→20:05)
[2018-06-27] MEDS: Pantoprazole 40 MG VIAL IVP ×2 (09:26→20:06)
[2018-06-27] MEDS: Sucralfate 1 GM TAB PO ×4 (09:27→22:08)
[2018-06-27] MEDS: Naltrexone 50 MG TAB PO (09:27)
[2018-06-27] MEDS: Spironolactone 25 MG TAB 50 MG PO (09:27)
[2018-06-27] MEDS: Potassium Chloride 10 MEQ TABCR 20 MEQ PO (09:27)
[2018-06-27] MEDS: Venlafaxine 37.5 MG CAPCR PO (09:27)
[2018-06-27] MEDS: Multivitamin TAB 1 TAB PO (09:27)
[2018-06-27] MEDS: Venlafaxine 150 MG CAPCR PO (09:27)
[2018-06-27] MEDS: amLODIPine 10 MG TAB PO (09:27)
[2018-06-27] MEDS: Cyanocobalamin 500 MCG TAB 1000 MCG PO (09:28)
[2018-06-27] MEDS: Folic Acid 1 MG TAB PO (09:28)
[2018-06-27] MEDS: Normal Saline 1,000 ML 125 ML IV (10:32)
--- NOTE | 2018-06-27 10:45 | PHARADMIT ---
Addendum entered by Tarah Benjamin 06/28/18 14:04: Pharmacy Note Subjective Objective VS ok, K+ up 4.4, Mag 2.0, Na++ down 131, CIWA 1 Assessment K-dur 40meq po BID put on hold this morning Plan Original Note: Admission Pharmacy Clinical Review ETOH WITHDRAWAL, HYPOKALEMIA, EPIGASTRIC PAIN, N/V Code Status Full Code Current Weight Wgt-60.3 kg Renally Cleared and Narrow Therapeutic Index Meds CrCl~ 46.2 mL/min Meds-OK QTc Value / Action Taken NA BP Control, Fever BP-136/75 Tmax-37.2C Electrolytes reviewed Na-133 K+3.2 Phos-2.8 Mag-3.9 DVT Prophylaxis Lovenox 40mg Opiate Usage / Scheduled Bowel Regimen Ordered Yes Yes Plt/SCr for Heparin / Enoxaparin Plts-215 SCr-0.83 INR for Warfarin na H/H stable, WBC/Bands H&H- 9.9/31.0 WBC- 6.56 Antibiotic appropriateness none Cultures and Sensitivities none Surgical ABX d/c within 24 hr na DM control / Insulin Dosing BG- 132 Aspart Heart Failure (Check EF%) (AMBER's, B-Block, Diuretics) Norvasc,Coreg, Losartan, Aldactone IV to PO Switch No Home Meds Reviewed Yes Home Meds Not Ordered SOMA, Flonase, Cipro, Lidoderm, Zofran Comments
--- NOTE | 2018-06-27 14:53 | PGE_ITS ---
Assessment and Plan (1) Alcohol abuse: Current visit: No Status: Chronic Ongoing. Currently admitted for ETOH withdrawal. She is no longer experiencing withdrawal symptoms, however, she remains at risk for withdrawal. Continue scheduled Serax and CIWA protocol with additional PRN serax. Care management continues to work on safe discharge plan. Continue to monitor labs. (2) Chronic alcoholic gastritis: Current visit: No Status: Chronic With epigastric discomfort and nausea and vomiting on admission. Continue IV PPI at current dosing. Continue to monitor hemoglobin and hematocrit. (3) Depression: Current visit: No Status: Chronic Continue Venlafaxine per home dosing. Refer to therapist as an outpatient. Consider rehab after discharge for both alcohol abuse and depression as she reports depression as a trigger for her alcohol abuse. (4) Hypokalemia: Current visit: Yes Status: Acute Continues to be low despite supplementation. Additional potassium given today. Reassess potassium tomorrow morning. (5) DVT prophylaxis: Current visit: No Status: Acute Subcutaneous Lovenox. (6) Discharge planning issues: Current visit: No Status: Acute She is a FULL CODE. Care management continues to work with Leticia on a safe discharge plan. This case was discussed with Dr. Medina who is in agreement. Subjective Interval history since last seen: Leticia is a 73-year-old with ongoing alcoholism requiring frequent hospitalizations for acute alcohol withdrawal, falls while intoxicated resulting in injury, hypertension, hyperlipidemia, depression, alcohol induced gastritis, history of Wernicke's encephalopathy, GERD, and anemia who presented to the ED on 06/26/18 with reports of epigastric pain, nausea and vomiting. She verbalized a desire to withdrawal from alcohol. She was admitted to the med/surg floor and treated with IV fluids, antiemetics, and serax for alcohol withdrawal. She has both scheduled and PRN Serax ordered but she has not required any PRN doses. She is doing well today. She does not feel like she is experiencing withdrawal. She is eating and drinking without nausea, vomiting or diarrhea. She has a headache, which is typical for her. She reports shortness of breath with activity, none at rest. She denies chest pain/pressure, palpitations. She admits to feeling depressed recently as she has lost 3 dogs in the last 3 months. She is looking forward to getting home to her last living dog. We discussed that she is still at risk for withdrawal as her last drink was 2 days ago (Tuesday). She is agreeable to remaining here on [facility] protocol. Exam Narrative Exam Narrative: General: Leticia is a 73 year old female who appears younger than her stated age. She is pleasant and cooperative, well nourished. She is awake and oriented, in no acute distress. HEENT: normocephalic, atraumatic. Pupils are equal and round. mucous membranes are moist. Neck: supple, no JVD. Respiratory: Respirations are even and unlabored, rales left base. No wheezing. Cardiovascular: Heart has regular rate and rhythm, non-tachycardic. No murmur, click, gallop or rub. Gastrointestinal: Abdomen is soft, nontender on palpation, no masses appreciated with normoactive bowel sounds throughout. : Positive for urinary incontinence. Extremities: No clubbing, cyanosis or edema. Skin: No significant rash or lesion noted. Psychiatric: Speech is clear and articulate, affect is somewhat flat and depressed. Objective Objective Clinical Data: Abnormal lab results 06/26/18 06/26/18 06/27/18 Range/Units 14:50 15:00 06:15 RBC (4.00-5.20) m/cumm Hgb (12.0-15.5) g/dL Hct (36.0-46.0) % MCV (80-95) fL MCHC (32.0-36.0) g/dL RDW (11.7-14.6) % Absolute Lymphocytes (1.2-3.4) k/cumm Absolute Monocytes (0.11-0.7) k/cumm VBG pH 7.51 H (7.32-7.43) VBG pO2 66 H (28-44) mm/Hg VBG O2 Saturation 94 H (70-80) % VBG Base Excess 5.3 H (-3-3) mmol/L Sodium 133 L (136-145) mmol/L Potassium 3.2 L (3.5-5.1) mmol/L Chloride 97 L (98-107) mmol/L Glucose 132 H D (70-100) mg/dL Magnesium 4.4 H* (1.8-2.4) mg/dL Urine Protein 100 H (Negative) mg/dL Urine Blood Trace-intact H (Negative) Urine Glucose 500 H (Negative) mg/dL 06/27/18 06/27/18 Range/Units 06:15 08:20 RBC 3.20 L (4.00-5.20) m/cumm Hgb 9.9 L (12.0-15.5) g/dL Hct 31.0 L (36.0-46.0) % MCV 96.9 H (80-95) fL MCHC 31.9 L (32.0-36.0) g/dL RDW 17.8 H (11.7-14.6) % Absolute Lymphocytes 0.73 L (1.2-3.4) k/cumm Absolute Monocytes 0.81 H (0.11-0.7) k/cumm VBG pH (7.32-7.43) VBG pO2 (28-44) mm/Hg VBG O2 Saturation (70-80) % VBG Base Excess (-3-3) mmol/L Sodium (136-145) mmol/L Potassium (3.5-5.1) mmol/L Chloride (98-107) mmol/L Glucose (70-100) mg/dL Magnesium 3.9 H (1.8-2.4) mg/dL Urine Protein (Negative) mg/dL Urine Blood (Negative) Urine Glucose (Negative) mg/dL Vital Signs Temperature 36 C L 06/27/18 14:45 Temperature Source Tympanic 06/27/18 14:45 Pulse 85 06/27/18 14:45 Pulse Rhythm Regular 06/27/18 01:48 Pulse 109 H 06/26/18 16:50 Respiratory Rate 16 06/27/18 14:45 Respiratory Effort 06/27/18 01:48 Respiratory Depth Normal 06/27/18 01:48 Respiratory Pattern Normal 06/27/18 01:48 Blood Pressure 116/74 06/27/18 14:45 Blood Pressure Mean 184 06/26/18 16:46 Pulse Oximetry 94 L 06/27/18 14:45 Oxygen Delivery Method Room Air 06/27/18 14:45 Oxygen Flow Rate 0 06/27/18 14:45 Pain Level 4 06/27/18 02:01 Intake & Output 06/26/18 06/27/18 06/27/18 23:59 11:59 23:59 Intake Total 1055 / 1055 2450 / 2450 Output Total 400 / 400 600 / 600 250 / 250 Balance 655 / 655 1850 / 1850 -250 / -250 Weight 62 kg 60.3 kg Intake: IV 1055 / 1055 1100 / 1100 Oral 1350 / 1350 Output: Urine 400 / 400 600 / 600 250 / 250 Other: Urine Color Yellow Straw Yellow Urine Appearance Clear Clear Clear Urine Odor Normal Comment also voided on commode. Stool Size Large Stool Characteristics Hard Emesis Description None Voiding Methods Bedside Commode Bedside Commode Bedside Commode Laboratory Results WBC 6.56 k/cumm (4.4-10.8) D 06/27/18 06:15 RBC 3.20 m/cumm (4.00-5.20) L 06/27/18 06:15 Hgb 9.9 g/dL (12.0-15.5) L 06/27/18 06:15 Hct 31.0 % (36.0-46.0) L 06/27/18 06:15 MCV 96.9 fL (80-95) H 06/27/18 06:15 MCH 30.9 pg (27.0-33.0) 06/27/18 06:15 MCHC 31.9 g/dL (32.0-36.0) L 06/27/18 06:15 RDW 17.8 % (11.7-14.6) H 06/27/18 06:15 Plt Count 215 x1000/uL (130-400) 06/27/18 06:15 MPV 9.4 fL (8.0-11.0) 06/27/18 06:15 Immature Gran % 0.2 06/27/18 06:15 Neutrophils % 76.0 06/27/18 06:15 Lymphocytes % 11.1 06/27/18 06:15 Monocytes % 12.3 06/27/18 06:15 Eosinophils % 0.2 06/27/18 06:15 Basophils % 0.2 06/27/18 06:15 Absolute Neutrophils 4.99 k/cumm (1.2-6.7) 06/27/18 06:15 Absolute Lymphocytes 0.73 k/cumm (1.2-3.4) L 06/27/18 06:15 Absolute Monocytes 0.81 k/cumm (0.11-0.7) H 06/27/18 06:15 Absolute Eosinophils 0.01 k/cumm (0.0-0.7) 06/27/18 06:15 Absolute Basophils 0.01 k/cumm (0.0-0.2) 06/27/18 06:15 Differential Comment Rbc morph reviewed 06/27/18 06:15 RBC Morphology See below 06/27/18 06:15 Polychromasia Present 06/27/18 06:15 Hypochromasia 1+ 06/27/18 06:15 Anisocytosis 1+ 06/27/18 06:15 VBG pH 7.51 (7.32-7.43) H 06/26/18 15:00 VBG pCO2 35 mm/Hg (34-47) 06/26/18 15:00 VBG pO2 66 mm/Hg (28-44) H 06/26/18 15:00 VBG HCO3 28 mmol/L (22-28) 06/26/18 15:00 VBG Total CO2 26 mmol/L (22-29) 06/26/18 15:00 VBG O2 Saturation 94 % (70-80) H 06/26/18 15:00 VBG Base Excess 5.3 mmol/L (-3-3) H 06/26/18 15:00 Sodium 133 mmol/L (136-145) L 06/27/18 06:15 Potassium 3.2 mmol/L (3.5-5.1) L 06/27/18 06:15 Chloride 97 mmol/L (98-107) L 06/27/18 06:15 Carbon Dioxide 28.4 mmol/L (21.0-32.0) 06/27/18 06:15 Anion Gap 7.6 mmol/L (3-11) 06/27/18 06:15 BUN 13 mg/dL (7-18) 06/27/18 06:15 Creatinine 0.83 mg/dL (0.55-1.02) 06/27/18 06:15 Estimated GFR/1.73 m2 >= 60.00 (mL/min/1.73m2) 06/27/18 06:15 Glucose 132 mg/dL (70-100) H D 06/27/18 06:15 Calcium 9.6 mg/dL (8.5-10.1) 06/27/18 06:15 Phosphorus 2.8 mg/dL (2.6-4.7) 06/27/18 06:15 Magnesium 3.9 mg/dL (1.8-2.4) H 06/27/18 08:20 Total Bilirubin 1.5 mg/dL (0.2-1.0) H 06/26/18 13:50 AST 31 U/L (15-37) 06/26/18 13:50 ALT 31 U/L (12-78) 06/26/18 13:50 Alkaline Phosphatase 97 U/L (46-116) 06/26/18 13:50 Troponin I < 0.02 ng/mL (0.00-0.06) 06/27/18 06:15 Total Protein 7.6 g/dL (6.4-8.2) 06/26/18 13:50 Albumin 4.1 g/dL (3.4-5.0) 06/26/18 13:50 Lipase 114 U/L (73-393) 06/26/18 13:50 Urine Color Straw (Yellow) 06/26/18 14:50 Urine Clarity Clear 06/26/18 14:50 Urine pH 7.5 (5-8) 06/26/18 14:50 Ur Specific [place] 1.020 (1.005-1.025) 06/26/18 14:50 Urine Protein 100 mg/dL (Negative) H 06/26/18 14:50 Urine Ketones Negative mg/dL (Negative) 06/26/18 14:50 Urine Blood Trace-intact (Negative) H 06/26/18 14:50 Urine Nitrite Negative (Negative) 06/26/18 14:50 Urine Bilirubin Negative (Negative) 06/26/18 14:50 Urine Urobilinogen 0.2 EU/dL (Up TO 0.2) 06/26/18 14:50 Ur Leukocyte Esterase Negative (Negative) 06/26/18 14:50 Urine RBC 0-2 (0-2) 06/26/18 14:50 Urine WBC 0-2 HPF (0-5) 06/26/18 14:50 Ur Epithelial Cells Rare HPF (Negative) 06/26/18 14:50 Urine Crystals Negative HPF (Negative) 06/26/18 14:50 Urine Bacteria Rare HPF (Negative) 06/26/18 14:50 Urine Casts Comment LPF (Negative) 06/26/18 14:50 Urine Mucus Negative (Negative) 06/26/18 14:50 Urine Other Rare renal (Negative) 06/26/18 14:50 Ur Culture Indicated? No 06/26/18 14:50 Urine Glucose 500 mg/dL (Negative) H 06/26/18 14:50 Urine Opiates Screen Negative (Negative) 06/26/18 14:50 Urine Methadone Screen Negative (Negative) 06/26/18 14:50 Ur Barbiturates Screen Negative (Negative) 06/26/18 14:50 Ur Tricyclics Screen Negative (Negative) 06/26/18 14:50 Ur Amphetamines Screen Negative (Negative) 06/26/18 14:50 U Benzodiazepines Scrn Negative (Negative) 06/26/18 14:50 Urine Cocaine Screen Negative (Negative) 06/26/18 14:50 Ur THC Screen Negative (Negative) 06/26/18 14:50 Ethyl Alcohol < 3.0 mg/dL (<3) 06/26/18 13:50
--- NOTE | 2018-06-27 15:32 | NUTRITION ---
Pt. with poor PO intake at meal times and history of ETOH. BMI is 25 kg/m2 which is WNL. Offered Glucerna supplements to boost calorie and protein intake. Pt. is on a carbohydrate counting nutrition therapy. Will follow up with pt. to see acceptance. Will adjust nutrition care plan accordingly.
--- NOTE | 2018-06-27 16:25 | PDOC.CMIN ---
Care Management Initial Assess REASON FOR HOSPITALIZATION:: ETOH abuse, hypokalemia, epigastric pain, N/V PAST MEDICAL HISTORY/PAST SURGICAL HISTORY:: lcohol abuse (Chronic). Alcoholic ketosis (Resolved). Alcohol abuse (Chronic). Alcohol withdrawal (Chronic). Hypertension (Acute). Hyperlipidemia (Chronic). Back pain, chronic (Chronic). Depression (Chronic). Genital herpes (Chronic). Osteoarthritis (Chronic). Osteopenia (Chronic). Urinary incontinence (Chronic). 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 Headache (Chronic). Gastritis (Chronic). Wernicke encephalopathy (Chronic). GERD (gastroesophageal reflux disease) (Chronic). Falling (Chronic). Alcohol dependence (Chronic). Anemia (Chronic). Alcohol abuse. Depression. Essential hypertension. Hyperlipidemia. Osteoarthritis. Sciatica. Urinary incontinence. Bladder Surgery. Colonoscopy - MAC (01/28/17). EGD - MAC (12/20/16). Ligation of fallopian tube. Repair bladder injury, simple PREVIOUS FUNCTIONAL STATUS/SOCIAL/FAMILY SUPPORTS:: Leticia resides alone in [place], she has a sister whom resides locally. Leticia has two sons whom reside out of [facility]. Leticia is independent at baseline. CURRENT FUNCTIONAL STATUS:: Leticia is lying in bed, appearing alert and oriented. She is forthcoming with admission assessment and pleasant in interaction. ADVANCE DIRECTIVES:: POA: Son. Has patient been provided with information about the portal?: Yes Did the patient sign up for the portal?: No CODE STATUS:: Full Code INSURANCE COVERAGE / FINANCIAL ISSUES:: [employer] Financial ASST 70 CURRENT HOME/COMMUNITY SERVICES/EQUIPMENT:: Currently Leticia has a FWW at home. Prior community based supports are no longer able to support Leticia due to liability. Her PCP provides home visits in attempt to keep Leticia from drinking and driving to appointments. PRIMARY CARE PHYSICIAN:: Dr. Galindo POTENTIAL DISCHARGE NEEDS:: Follow up appointment with PCP. PATIENT/FAMILY EDUCATION NEEDS:: Re-admission data review; discharge instructions-discuss Ask Me Three. ANTICIPATED BARRIERS TO DISCHARGE:: None idenfitifed. TRANSPORTATION:: Via taxi-paid for by [facility]. PLAN:: Leticia will return home. She will follow up with her PCP and plan of care-she will transport via taxi paid for by [facility] and coordinated by this play writer. Readmission - Within the Past 30 Days Yes or No: Y - Date of First Admission Date of 1st Admission: 06/11/18 - Date of this Admission Date of Admission: 06/26/18 This admission was: Through ED - Office Visit Since 1st Admission Have you seen your PCP in the office since discharge?: Yes Date of PCP Appointment: 06/22/18 - I. Interview patient and/or Family Difficulty reaching your doctor or getting an office appt?: No Have you had trouble purchasing/ or taking medication?: No Have you had trouble with getting meals at home?: No Did you feel ready for discharge when you left the last time: Yes Did you call your physician beore you came to the ED?: No (Didn't think of it-too sickvomitting) How do you think you became sick enough to come back?: exposure to alcohol. at home. fine in rehabs and hospital when out of sight. been down that road-just costs me thousands of dollars. - If the patient had a VNA ordered Did the patient have a VNA order?: No - If the patient had home care service Call them to discuss the patient's admission: VNA unable to offer supports for Leticia due to liability. - ED visits How many ED visits in the past 12 months: 17 (since 05/05/18) - Assessment for Readmission Summary of readmission circumstances, based upon interviews: Financial barriers due to income guidelines. Liability issues due to ongoing alcohol use. Patient choice-refusal and follow through. Addiction and barriers to treatment.
--- NOTE | 2018-06-27 16:34 | INITIAL_ITS ---
Care Management Initial Assess REASON FOR HOSPITALIZATION:: ETOH abuse, hypokalemia, epigastric pain, N/V PAST MEDICAL HISTORY/PAST SURGICAL HISTORY:: lcohol abuse (Chronic). Alcoholic ketosis (Resolved). Alcohol abuse (Chronic). Alcohol withdrawal (Chronic). Hypertension (Acute). Hyperlipidemia (Chronic). Back pain, chronic (Chronic). Depression (Chronic). Genital herpes (Chronic). Osteoarthritis (Chronic). Osteopenia (Chronic). Urinary incontinence (Chronic). 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 Headache (Chronic). Gastritis (Chronic) . Wernicke encephalopathy (Chronic). GERD (gastroesophageal reflux disease) ( Chronic). Falling (Chronic). Alcohol dependence (Chronic). Anemia (Chronic). Alcohol abuse. Depression. Essential hypertension. Hyperlipidemia. Osteoarthritis. Sciatica. Urinary incontinence. Bladder Surgery. Colonoscopy - MAC (01/28/17). EGD - MAC (12/20/16). Ligation of fallopian tube. Repair bladder injury, simple PREVIOUS FUNCTIONAL STATUS/SOCIAL/FAMILY SUPPORTS:: Leticia resides alone in [place], she has a sister whom resides locally. Leticia has two sons whom reside out of [facility]. Leticia is independent at baseline. CURRENT FUNCTIONAL STATUS:: Leticia is lying in bed, appearing alert and oriented. She is forthcoming with admission assessment and pleasant in interaction. ADVANCE DIRECTIVES:: POA: Son. Has patient been provided with information about the portal?: Yes Did the patient sign up for the portal?: No CODE STATUS:: Full Code INSURANCE COVERAGE / FINANCIAL ISSUES:: [employer], Financial ASST 70 CURRENT HOME/COMMUNITY SERVICES/EQUIPMENT:: Currently Leticia has a FWW at home. Prior community based supports are no longer able to support Leticia due to liability. Her PCP provides home visits in attempt to keep Leticia from drinking and driving to appointments. PRIMARY CARE PHYSICIAN:: Dr. Galindo POTENTIAL DISCHARGE NEEDS:: Follow up appointment with PCP. PATIENT/FAMILY EDUCATION NEEDS:: Re-admission data review; discharge instructions-discuss Ask Me Three. ANTICIPATED BARRIERS TO DISCHARGE:: None idenfitifed. TRANSPORTATION:: Via taxi-paid for by [facility]. PLAN:: Leticia will return home. She will follow up with her PCP and plan of care- she will transport via taxi paid for by [facility] and coordinated by this health underwriter. Readmission - Within the Past 30 Days Yes or No: Y - Date of First Admission Date of 1st Admission: 06/11/18 - Date of this Admission Date of Admission: 06/26/18 This admission was: Through ED - Office Visit Since 1st Admission Have you seen your PCP in the office since discharge?: Yes Date of PCP Appointment: 06/22/18 - I. Interview patient and/or Family Difficulty reaching your doctor or getting an office appt?: No Have you had trouble purchasing/ or taking medication?: No Have you had trouble with getting meals at home?: No Did you feel ready for discharge when you left the last time: Yes Did you call your physician beore you came to the ED?: No (Didn't think of it- too sickvomitting) How do you think you became sick enough to come back?: exposure to alcohol. at home. fine in rehabs and hospital when out of sight. been down that road-just costs me thousands of dollars. - If the patient had a VNA ordered Did the patient have a VNA order?: No - If the patient had home care service Call them to discuss the patient's admission: [facility] unable to offer supports for Leticia due to liability. - ED visits How many ED visits in the past 12 months: 17 (since 05/05/18) - Assessment for Readmission Summary of readmission circumstances, based upon interviews: Financial barriers due to income guidelines. Liability issues due to ongoing alcohol use. Patient choice-refusal and follow through. Addiction and barriers to treatment.
[2018-06-27] MEDS: Insulin Aspart 300 UNITS/3 ML PEN SC (17:11)
[2018-06-27] MEDS: Enoxaparin 40 MG/0.4 ML SYR SC (17:12)
[2018-06-27] MEDS: Magnesium Oxide 400 MG TAB PO (20:05)
[2018-06-27] MEDS: Potassium Chloride 10 MEQ TABCR 40 MEQ PO (20:06)
--- NOTE | 2018-06-27 21:17 | ED.GENADUL_ITS ---
Discharge Plan Disposition Condition: Improving Discharge Details Chief Complaint: Nausea/Vomit/Diar Reason For Visit: ETOH ABUSE, HYPOKALEMIA, EPIGASTRIC PAIN, N/V Admit Date/Time: 06/26/18 15:51 Admit Provider: Robert Medina Attending Provider: Robert Medina Primary Care Provider: Lavelle Galindo ED Provider: Karol Crenshaw Discharge Instructions Activity:: Activity as Tolerated Equipment/Supplies:: No Equipment Needed Diet:: As Tolerated Discharge Orders Discharge Orders: Discharge Order (Routine); Ordered 06/28/18 Ordered By: Jessie Cowan Discharge Data Discharge Date/Time-TO BE ENTERED AT DEPARTURE: 06/26/18 18:22 Medical Decision Making Leticia Ingram is a 73 y/o woman with h/o HTN, HLD, etoh abuse who presented to the emergency department with vomiting and etoh withdrawal with last alcoholic drink 48 hours ago. On exam Pt is tachycardic, hypertensive, UE tremor. A&Ox3, no focal deficit. Concern for etoh withdrawal, pancreatitis, gastritis, dehydration, metabolic/lyte derangement, other. Exam/hx not c/w ACS, PE, sepsis , GIB. Plan for EKG, screening labs, IVF hydration, IV benzos, CT abd/pelv, telemetry. Will monitor and reassess. Pt reports feeling much better after IVF, ativan 1mg IV and valium 5mg IV. Tremor significantly improved. Tachycardia now 100-110. Hypokalemia, hypomagnesemia, increased AG. Plan for admission for etoh withdrawal, alcoholic ketoacidosis, lyte derangements. Will continue IVF. Pt to have CT for r/o acute intra-abdominal process. Lab Data Lab results reviewed: Yes I reviewed the patient's lab results. ECG Data Attestation: I personally reviewed and interpreted this ECG (s) as follows: Interpretation: EKG shows sinus tach at 120 with normal axis, nonspecific ST changes, no STEMI, nondiagnostic EKG HPI General Mode of arrival: EMS . Date/Time Provider Initiated Documentation: 06/26/18 13:37 . Limitations to Documentation: no limitations . Information obtained by: patient, RN notes reviewed and old records reviewed . HPI Narrative: Leticia Ingram is a 73 y/o woman with h/o HTN, HLD, etoh abuse who presents to the emergency department with vomiting and etoh withdrawal. Pt reports that she typically drinks 5-6 glasses of whiskey per day. She states that she has not had anything to drink in two days because she ran out of money to buy alcohol. She states that this morning she began vomiting, denies bloody emesis. Pt reports that she also is feeling shaky and thinks she is going into etoh withdrawal. She denies SI, other ingestions. Reports that she was eating normally until today. No recent illness. She reports generalized abdominal pain worse in epigastric region. No diarrhea. No fever, no SOB, no cough, no rash, no n/t, no weakness, no other pain. Pt recently admitted for fall and alcohol intoxication. Related Data Home Medications Medication Instructions Recorded Confirmed cholecalciferol (vitamin D3) 2 tab PO DAILY #100 tab-cap 09/03/16 06/26/18 cyanocobalamin (vitamin B-12) 1,000 mcg PO DAILY #100 tab-cap 09/03/16 06/26/18 [Vitamin B-12] fluticasone 1 spr NS daily prn #3 bottle 09/03/16 06/26/18 gabapentin 2 tab PO BID #360 cap 03/25/17 06/11/18 folic acid 1 mg PO DAILY #90 tab 07/26/17 06/11/18 naltrexone 50 mg PO DAILY #30 tab-cap 11/04/17 06/11/18 pyridoxine (vitamin B6) [Vitamin 50 mg PO nightly #60 cap 11/04/17 06/26/18 B-6] thiamine mononitrate (vit B1) 100 mg PO QAM #90 tab 11/04/17 06/26/18 venlafaxine 37.5 mg PO DAILY #90 tab-cap 11/04/17 06/26/18 ondansetron HCl 4 mg PO Q6H PRN PRN #15 tab-cap 12/21/17 06/11/18 potassium chloride 20 meq PO BID #180 tab-cap 03/30/18 06/26/18 acetaminophen [Mapap Extra 500 mg PO Q6H tab 04/17/18 06/11/18 Strength] polyethylene glycol 3350 17 gm PO DAILY PRN PRN packet 04/17/18 06/26/18 tramadol 50 mg PO Q6H PRN PRN tab 04/17/18 06/26/18 amlodipine 10 mg PO DAILY #30 tab 05/24/18 06/26/18 carvedilol [Coreg] 6.25 mg PO BID #60 tab 05/24/18 06/26/18 magnesium oxide 400 mg PO TID #120 tab 05/24/18 06/11/18 pantoprazole 40 mg PO BID@0730,2000 #60 tab 05/24/18 06/26/18 ranitidine HCl 150 mg PO BID #60 tab 05/24/18 06/26/18 spironolactone 50 mg PO DAILY #30 tab 05/24/18 06/26/18 venlafaxine 150 mg PO DAILY #30 cap 05/24/18 06/26/18 carisoprodol [Soma] 350 mg PO TID #15 tab 06/14/18 06/26/18 ciprofloxacin HCl 500 mg PO Q12H #10 tab 06/14/18 lidocaine [Lidoderm] 2 patch TOPICAL DAILY #1 pkg 06/14/18 losartan 100 mg PO DAILY #30 tab 06/14/18 amlodipine 10 mg PO DAILY #0 tab 06/28/18 carvedilol [Coreg] 6.25 mg PO BID #0 tab 06/28/18 cholecalciferol (vitamin D3) 2,000 units PO DAILY #0 tab 06/28/18 cyanocobalamin (vitamin B-12) 1,000 mcg PO DAILY #0 tab 06/28/18 [Vitamin B-12] folic acid 1 mg PO DAILY #0 tab 06/28/18 gabapentin 200 mg PO BID #0 cap 06/28/18 losartan 100 mg PO DAILY #0 tab 06/28/18 magnesium oxide 400 mg PO TID #0 tab 06/28/18 multivitamin [Multiple Vitamins] 1 tab PO DAILY #0 tab 06/28/18 naloxone [Narcan] 1 spray EZIO ONCE PRN #2 each 06/28/18 naltrexone 50 mg PO DAILY #0 tab 06/28/18 oxazepam 15 mg PO TID #9 cap 06/28/18 potassium chloride [Klor-Con M10] 20 meq PO DAILY #0 tab 06/28/18 pyridoxine (vitamin B6) [Vitamin 50 mg PO QPM #0 tab 06/28/18 B-6] ranitidine HCl 150 mg PO BID #0 tab 06/28/18 spironolactone 50 mg PO DAILY #0 tab 06/28/18 sucralfate 1 g PO AC & HS #0 tab 06/28/18 thiamine mononitrate (vit B1) 100 mg PO QAM #0 tab 06/28/18 [Vitamin B-1 (mononitrate)] tramadol 50 mg PO Q6H PRN PRN #0 tab 06/28/18 venlafaxine 150 mg PO DAILY #0 cap 06/28/18 venlafaxine [Effexor XR] 37.5 mg PO DAILY #0 cap 06/28/18 Previous Rx's Medication Instructions Recorded folic acid 1 mg PO DAILY #90 tab 07/26/17 naltrexone 50 mg PO DAILY #30 tab-cap 11/04/17 pyridoxine (vitamin B6) [Vitamin 50 mg PO nightly #60 cap 11/04/17 B-6] thiamine mononitrate (vit B1) 100 mg PO QAM #90 tab 11/04/17 venlafaxine 37.5 mg PO DAILY #90 tab-cap 11/04/17 ondansetron HCl 4 mg PO Q6H PRN PRN #15 tab-cap 12/21/17 potassium chloride 20 meq PO BID #180 tab-cap 03/30/18 acetaminophen [Mapap Extra 500 mg PO Q6H tab 04/17/18 Strength] polyethylene glycol 3350 17 gm PO DAILY PRN PRN packet 04/17/18 tramadol 50 mg PO Q6H PRN PRN tab 04/17/18 amlodipine 10 mg PO DAILY #30 tab 05/24/18 carvedilol [Coreg] 6.25 mg PO BID #60 tab 05/24/18 magnesium oxide 400 mg PO TID #120 tab 05/24/18 pantoprazole 40 mg PO BID@0730,2000 #60 tab 05/24/18 ranitidine HCl 150 mg PO BID #60 tab 05/24/18 spironolactone 50 mg PO DAILY #30 tab 05/24/18 venlafaxine 150 mg PO DAILY #30 cap 05/24/18 carisoprodol [Soma] 350 mg PO TID #15 tab 06/14/18 ciprofloxacin HCl 500 mg PO Q12H #10 tab 06/14/18 lidocaine [Lidoderm] 2 patch TOPICAL DAILY #1 pkg 06/14/18 losartan 100 mg PO DAILY #30 tab 06/14/18 amlodipine 10 mg PO DAILY #0 tab 06/28/18 carvedilol [Coreg] 6.25 mg PO BID #0 tab 06/28/18 cholecalciferol (vitamin D3) 2,000 units PO DAILY #0 tab 06/28/18 cyanocobalamin (vitamin B-12) 1,000 mcg PO DAILY #0 tab 06/28/18 [Vitamin B-12] folic acid 1 mg PO DAILY #0 tab 06/28/18 gabapentin 200 mg PO BID #0 cap 06/28/18 losartan 100 mg PO DAILY #0 tab 06/28/18 magnesium oxide 400 mg PO TID #0 tab 06/28/18 multivitamin [Multiple Vitamins] 1 tab PO DAILY #0 tab 06/28/18 naloxone [Narcan] 1 spray EZIO ONCE PRN #2 each 06/28/18 naltrexone 50 mg PO DAILY #0 tab 06/28/18 oxazepam 15 mg PO TID #9 cap 06/28/18 potassium chloride [Klor-Con M10] 20 meq PO DAILY #0 tab 06/28/18 pyridoxine (vitamin B6) [Vitamin 50 mg PO QPM #0 tab 06/28/18 B-6] ranitidine HCl 150 mg PO BID #0 tab 06/28/18 spironolactone 50 mg PO DAILY #0 tab 06/28/18 sucralfate 1 g PO AC & HS #0 tab 06/28/18 thiamine mononitrate (vit B1) 100 mg PO QAM #0 tab 06/28/18 [Vitamin B-1 (mononitrate)] tramadol 50 mg PO Q6H PRN PRN #0 tab 06/28/18 venlafaxine 150 mg PO DAILY #0 cap 06/28/18 venlafaxine [Effexor XR] 37.5 mg PO DAILY #0 cap 06/28/18 Allergies Allergy/AdvReac Type Severity Reaction Status Date / Time Penicillins Allergy Mild Rash Unverified 06/26/18 17:13 ramipril Allergy Unknown ITCHING Unverified 06/26/18 17:13 meperidine [From Demerol] AdvReac Severe Nausea Unverified 06/26/18 17:13 bupropion AdvReac Mild GI upset Unverified 06/26/18 17:13 AMBER Inhibitors AdvReac Unknown COUGH Unverified 06/26/18 17:13 alendronate sodium AdvReac Unknown GI Distress Unverified 06/26/18 17:13 clarithromycin AdvReac Unknown intolerant Unverified 06/26/18 17:13 paroxetine AdvReac Unknown Diarrhea Unverified 06/26/18 17:13 General Stated Complaint: Nausea/Vomit/Diar JORDAN: 2 Review of Systems Review of Systems Constitutional: denies fevers Eyes: denies eye pain ENT: denies facial pain, dental pain, sore throat Cardiovascular: denies chest pain, edema Respiratory: denies SOB, cough GI: reports abdominal pain, vomiting, denies constipation, diarrhea : denies flank pain MSK: denies back pain, neck pain, arthralgias, myalgias Skin: denies rash Neuro: denies headaches, lightheadedness, weakness, reports tremor upper extremities Exam Narrative Exam Narrative: Constitutional: chronically ill-appearing, anxious HENT: head atraumatic, normocephalic normal inspection, mucous membranes moist Eyes: conjunctiva normal, sclera normal, pupils 3mm b/l Neck: no stridor, normal ROM, trachea midline Chest: normal inspection Resp: normal work of breathing, LCTAB Cardio: tachycardic, normal rhythm, no murmur appreciated GI: abdomen soft, mild tenderness throughout without rebound or guarding, non- distended. resolving ecchymoses left flank Back: normal inspection, no rash Skin: warm, dry, normal color, no rash Neuro: alert, not altered, grossly non-focal, normal tone, tremor b/l upper exts Ext: no edema Psych: anxious mood, normal affect, normal behavior Course Vital Signs Temperature 37 C 06/26/18 13:38 Pulse 127 H 06/26/18 13:38 Respiratory Rate 24 06/26/18 13:38 Blood Pressure 213/102 H 06/26/18 13:38 Pulse Oximetry 99 06/26/18 13:38 Temperature 37 C 06/26/18 13:38 Temperature Source Temporal Artery Scan 06/26/18 13:38 Pulse 127 H 06/26/18 13:38 Respiratory Rate 24 06/26/18 13:38 Respiratory Effort 06/26/18 14:16 Blood Pressure 213/102 H 06/26/18 13:38 Pulse Oximetry 99 06/26/18 13:38 Oxygen Delivery Method Room Air 06/26/18 13:38 Oxygen Flow Rate 0 06/26/18 13:38 Pain Level 6 06/26/18 13:49 Lab/Test Results Lab/Test Results: Laboratory Tests Range/Units 06/26/18 06/26/18 13:50 13:50 WBC (4.4-10.8) k/cumm 10.57 RBC (4.00-5.20) m/cumm 3.41 L Hgb (12.0-15.5) g/dL 10.8 L Hct (36.0-46.0) % 32.6 L MCV (80-95) fL 95.6 H MCH (27.0-33.0) pg 31.7 MCHC (32.0-36.0) g/dL 33.1 RDW (11.7-14.6) % 17.8 H Plt Count (130-400) x1000/uL 233 MPV (8.0-11.0) fL 8.8 Immature Gran % 0.2 Neutrophils % 93.8 Lymphocytes % 2.1 Monocytes % 3.7 Eosinophils % 0.0 Basophils % 0.2 Absolute Neutrophils (1.2-6.7) k/cumm 9.92 H Absolute Lymphocytes (1.2-3.4) k/cumm 0.22 L Absolute Monocytes (0.11-0.7) k/cumm 0.39 Absolute Eosinophils (0.0-0.7) k/cumm 0.00 Absolute Basophils (0.0-0.2) k/cumm 0.02 Sodium (136-145) mmol/L 140 Potassium (3.5-5.1) mmol/L 2.9 L* Chloride (98-107) mmol/L 97 L Carbon Dioxide (21.0-32.0) mmol/L 22.8 Anion Gap (3-11) mmol/L 20.2 H BUN (7-18) mg/dL 13 Creatinine (0.55-1.02) mg/dL 1.03 H Estimated GFR/1.73 m2 (mL/min/1.73m2) 52.67 Glucose (70-100) mg/dL 220 H Calcium (8.5-10.1) mg/dL 10.1 Magnesium (1.8-2.4) mg/dL 1.2 L Total Bilirubin (0.2-1.0) mg/dL 1.5 H AST (15-37) U/L 31 ALT (12-78) U/L 31 Alkaline Phosphatase (46-116) U/L 97 Troponin I (0.00-0.06) ng/mL < 0.02 Total Protein (6.4-8.2) g/dL 7.6 Albumin (3.4-5.0) g/dL 4.1 Lipase (73-393) U/L 114
[2018-06-28] VITALS (8 sets, daily range): BP systolic 112–149; BP diastolic 66–89; PULSE 70–82; RESP 16–20; TEMP 35.2–36.8; O2SAT 95–99
[2018-06-28] MEDS: Acetaminophen 325 MG TAB PO ×2 (00:31→09:59)
[2018-06-28 07:20] LABS: HCT 30.9 % (36.0-46.0); HGB 9.7 g/dL (12.0-15.5); Mean Corp. HGB Concentration 31.4 g/dL (32.0-36.0); Mean Corpuscular Hemoglobin 30.5 pg (27.0-33.0); Mean Corpuscular Volume 97.2 fL (80-95); Mean Platelet Volume 9.6 fL (8.0-11.0); Platelet Count 184 x1000/uL (130-400); RBC 3.18 m/cumm (4.00-5.20); RBC Distribution Width 17.1 % (11.7-14.6); White Blood Cell Count 4.26 k/cumm (4.4-10.8)
[2018-06-28 07:28] LABS: Anion Gap 7.1 mmol/L (3-11); BUN 14 mg/dL (7-18); CO2 25.9 mmol/L (21.0-32.0); CREATININE 0.85 mg/dL (0.55-1.02); Calcium 9.1 mg/dL (8.5-10.1); Chloride 98 mmol/L (98-107); Glucose 112 mg/dL (70-100); Potassium 4.4 mmol/L (3.5-5.1); Sodium 131 mmol/L (136-145)
[2018-06-28] MEDS: Carvedilol 6.25 MG TAB PO (09:26)
[2018-06-28] MEDS: amLODIPine 10 MG TAB PO (09:27)
[2018-06-28] MEDS: Spironolactone 25 MG TAB 50 MG PO (09:27)
[2018-06-28] MEDS: Sucralfate 1 GM TAB PO ×2 (09:28→13:20)
[2018-06-28] MEDS: Naltrexone 50 MG TAB PO (09:28)
[2018-06-28] MEDS: Thiamine 100 MG TAB PO (09:28)
[2018-06-28] MEDS: Cyanocobalamin 500 MCG TAB 1000 MCG PO (09:28)
[2018-06-28] MEDS: Losartan 50 MG TAB 100 MG PO (09:28)
[2018-06-28] MEDS: Venlafaxine 150 MG CAPCR PO (09:29)
[2018-06-28] MEDS: Venlafaxine 37.5 MG CAPCR PO (09:29)
[2018-06-28] MEDS: Gabapentin 100 MG CAP 200 MG PO (09:29)
[2018-06-28] MEDS: Magnesium Oxide 400 MG TAB PO ×2 (09:29→13:20)
[2018-06-28] MEDS: Folic Acid 1 MG TAB PO (09:29)
[2018-06-28] MEDS: Multivitamin TAB 1 TAB PO (09:30)
[2018-06-28] MEDS: Pantoprazole 40 MG VIAL IVP (09:34)
[2018-06-28] MEDS: Normal Saline Flush 10 ML SYR IVP (09:35)
--- NOTE | 2018-06-28 09:39 | PDOC.CMPRO ---
Care Management Progress Note S/O: A: 73 year old female admitted to [facility] 06/26/18 for ETOH Abuse, Hypokalemia, Epigastric Pain, N/V P: Leticia will return home. She will follow up with her PCP and plan of care-she will transport via taxi paid for by [facility] and coordinated by this check writer.
--- NOTE | 2018-06-28 09:40 | CMPROGNOTE_ITS ---
Care Management Progress Note S/O: A: 73 year old female admitted to [facility] 06/26/18 for ETOH Abuse, Hypokalemia, Epigastric Pain, N/V P: Leticia will return home. She will follow up with her PCP and plan of care-she will transport via taxi paid for by [facility] and coordinated by this teletypewriter operator.
[2018-06-28] MEDS: traMADol 50 MG TAB PO (09:59)
--- NOTE | 2018-06-28 12:48 | W.PM.DS.N ---
Date of service: 06/28/18 Time of Service: 12:51 DS: Diagnosis Discharge Diagnosis (1) Alcohol abuse: Status: Chronic (2) Chronic alcoholic gastritis: Status: Chronic (3) Depression: Status: Chronic (4) Hypokalemia: Status: Acute Discharge Plan Disposition Patient Disposition: HOME Condition: Improving Discharge Details Reason For Visit: ETOH ABUSE, HYPOKALEMIA, EPIGASTRIC PAIN, N/V Admit Date/Time: 06/26/18 15:51 Admit Provider: Robert Medina Attending Provider: Robert Medina Primary Care Provider: Lavelle Galindo Hospital Course Hospital Course: Leticia is a 73-year-old with ongoing alcoholism requiring frequent hospitalizations for acute alcohol withdrawal, falls while intoxicated resulting in injury, hypertension, hyperlipidemia, depression, alcohol induced gastritis, history of Wernicke's encephalopathy, GERD, and anemia who presented to the ED on 06/26/18 with reports of epigastric pain, nausea and vomiting. She was also noted to be hypertensive and tachycardic. She verbalized a desire to withdrawal from alcohol at the time of her presentation. She reported that her last alcoholic drink was the day prior to her presentation. She was admitted to the med/surg floor and treated with IV fluids, antiemetics, and serax for alcohol withdrawal. She had both scheduled and PRN Serax ordered but she did not score high enough to require any PRN doses. Despite her initial presentation, with nausea, vomiting, abdominal pain, hypertension and tachycardia, she did not appear to have significant withdrawal symptoms throughout her hospitalization. She was monitored on telemetry due to electrolyte abnormalities at time of presentation and was noted to be in normal sinus rhythm. She was initially tachycardic but by the time of discharge her heart rate was appropriate at 77, blood pressure stable at 134/84. On her initial presentation, her potassium was critically low at 2.9, she received supplementation with improvement in her level to 4.4. Her magnesium was low at 1.2, she received supplementation and had a spike to 3.9, by the day of discharge, her magnesium was within normal limits at 2. She continues to have anemia. Her hemoglobin is stable at the time of discharge at 9.7, her hematocrit was 30.9. She declines referral to a intermediate facility or to an alcohol rehabilitation facility. She was counseled extensively on abstinence from alcohol. She agrees to being reconnected with her outpatient therapist. Leticia will be scheduled to follow up with her therapist, Rudy Reid. She will follow up with her PCP, Dr Galindo. Home Meds and New Rx's Prescriptions: New carvedilol [Coreg] 6.25 mg Tablet 6.25 mg PO BID Qty: 0 RF: 0 cyanocobalamin (vitamin B-12) [Vitamin B-12] 500 mcg Tablet 1,000 mcg PO DAILY Qty: 0 RF: 0 amlodipine 10 mg Tablet 10 mg PO DAILY Qty: 0 RF: 0 folic acid 1 mg Tablet 1 mg PO DAILY Qty: 0 RF: 0 gabapentin 100 mg Capsule 200 mg PO BID Qty: 0 RF: 0 multivitamin [Multiple Vitamins] Tablet 1 tab PO DAILY Qty: 0 RF: 0 losartan 50 mg Tablet 100 mg PO DAILY Qty: 0 RF: 0 venlafaxine [Effexor XR] 37.5 mg Capsule,Extended Release 24hr 37.5 mg PO DAILY Qty: 0 RF: 0 sucralfate 1 gram Tablet 1 g PO AC & HS Qty: 0 RF: 0 naltrexone 50 mg Tablet 50 mg PO DAILY Qty: 0 RF: 0 venlafaxine 150 mg Capsule,Extended Release 24hr 150 mg PO DAILY Qty: 0 RF: 0 tramadol 50 mg Tablet 50 mg PO Q6H PRN PRNQty: 0 RF: 0 spironolactone 25 mg Tablet 50 mg PO DAILY Qty: 0 RF: 0 magnesium oxide 400 mg (241.3 mg magnesium) Tablet 400 mg PO TID Qty: 0 RF: 0 ranitidine HCl 150 mg Tablet 150 mg PO BID Qty: 0 RF: 0 pyridoxine (vitamin B6) [Vitamin B-6] 100 mg Tablet 50 mg PO QPM Qty: 0 RF: 0 potassium chloride [Klor-Con M10] 10 mEq Tablet,Er Particles/Crystals 20 meq PO DAILY Qty: 0 RF: 0 cholecalciferol (vitamin D3) 1,000 unit Tablet 2,000 units PO DAILY Qty: 0 RF: 0 thiamine mononitrate (vit B1) [Vitamin B-1 (mononitrate)] 100 mg Tablet 100 mg PO QAM Qty: 0 RF: 0 oxazepam 15 mg capsule 15 mg PO TID Qty: 9 RF: 0 No Action cyanocobalamin (vitamin B-12) [Vitamin B-12] 1,000 MCG tablet 1,000 mcg PO DAILY Qty: 100 RF: 4 fluticasone 16 GM spray,suspension 1 spr NS daily prn Qty: 3 RF: 3 cholecalciferol (vitamin D3) 1,000 UNIT tablet 2 tab PO DAILY Qty: 100 RF: 3 gabapentin 100 MG capsule 2 tab PO BID Qty: 360 RF: 3 folic acid 1 MG tablet 1 mg PO DAILY Qty: 90 RF: 3 venlafaxine 37.5 MG tablet 37.5 mg PO DAILY Qty: 90 RF: 3 naltrexone 50 MG tablet 50 mg PO DAILY Qty: 30 RF: 2 pyridoxine (vitamin B6) [Vitamin B-6] 50 MG tablet 50 mg PO nightly Qty: 60 RF: 4 thiamine mononitrate (vit B1) 100 MG tablet 100 mg PO QAM Qty: 90 RF: 3 potassium chloride 20 MEQ tablet extended release 20 meq PO BID Qty: 180 RF: 3 polyethylene glycol 3350 17 GM powder in packet 17 gm PO DAILY PRN PRN (Reason: Constipation) RF: 0 tramadol 50 MG tablet 50 mg PO Q6H PRN PRNRF: 0 acetaminophen [Mapap Extra Strength] 500 MG tablet 500 mg PO Q6H RF: 0 carvedilol [Coreg] 6.25 mg Tablet 6.25 mg PO BID Qty: 60 RF: 0 venlafaxine 150 mg Capsule,Extended Release 24hr 150 mg PO DAILY Qty: 30 RF: 0 spironolactone 25 mg Tablet 50 mg PO DAILY Qty: 30 RF: 0 magnesium oxide 400 mg (241.3 mg magnesium) Tablet 400 mg PO TID Qty: 120 RF: 0 amlodipine 10 mg Tablet 10 mg PO DAILY Qty: 30 RF: 0 pantoprazole 40 mg Tablet,Delayed Release (Dr/Ec) 40 mg PO BID@0730,2000 Qty: 60 RF: 0 ranitidine HCl 150 mg Tablet 150 mg PO BID Qty: 60 RF: 0 ondansetron HCl 4 MG tablet 4 mg PO Q6H PRN PRNQty: 15 RF: 0 losartan 50 mg Tablet 100 mg PO DAILY Qty: 30 RF: 0 carisoprodol [Soma] 350 mg Tablet 350 mg PO TID Qty: 15 RF: 0 lidocaine [Lidoderm] 5 % Adhesive Patch,Medicated 2 patch Topical DAILY Qty: 1 RF: 0 ciprofloxacin HCl 500 mg tablet 500 mg PO Q12H Qty: 10 RF: 0 Discharge Instructions Instructions: Alcohol Withdrawal (DC) Additional Instructions: Do not drink alcohol. Consider AA. Follow up with your therapist as scheduled. Follow up with your PCP as scheduled. Stand Alone Forms: Nursing Discharge Form Referrals: RUDY REID [Other] Lavelle Galindo [Primary Care Provider] - 07/05/18 11:20 am Activity:: Activity as Tolerated Equipment/Supplies:: No Equipment Needed Diet:: As Tolerated Discharge Orders Discharge Orders: Discharge Order (Routine); Ordered 06/28/18 Ordered By: Jessie Cowan Exam Narrative Exam Narrative: General: she is awake and alert, oriented x3. Pleasant and cooperative. HEENT: normocephalic, atraumatic, mucous membranes moist. Neck: supple, no JVD. Respiratory: respirations even and unlabored. LSCTA throughout. Cardiovascular: HRR, nontachycardic. GI: soft, protuberant, nontender on palpation, no masses appreciated, normoactive bowel sounds. Extremities: no clubbing, cyanosis or edema. DS: Data Vitals/I&O Vitals and I&O: Vital Signs Temperature 36.3 C L 06/28/18 11:30 Temperature Source Tympanic 06/28/18 11:30 Pulse 76 06/28/18 11:30 Pulse Rhythm Regular 06/28/18 08:05 Pulse 109 H 06/26/18 16:50 Respiratory Rate 20 06/28/18 11:30 Respiratory Effort 06/28/18 08:05 Respiratory Depth Normal 06/28/18 08:05 Respiratory Pattern Normal 06/28/18 08:05 Blood Pressure 135/80 06/28/18 11:30 Blood Pressure Mean 184 06/26/18 16:46 Pulse Oximetry 95 06/28/18 11:30 Oxygen Delivery Method Room Air 06/28/18 11:30 Oxygen Flow Rate 0 06/28/18 11:30 Pain Level 6 06/28/18 09:59 Intake & Output 06/27/18 06/28/18 06/28/18 23:59 11:59 23:59 Intake Total 1390.833 / 1390.833 660 / 660 Output Total 1100 / 1100 650 / 650 Balance 290.833 / 290.833 Weight 62.2 kg Intake: IV 670.833 / 670.833 Oral 720 / 720 660 / 660 Output: Urine 1100 / 1100 650 / 650 Other: Urine Color Yellow Yellow Urine Appearance Clear Clear Urine Odor Normal Normal Comment void x 2 200cc each time and incontinent at both times Voiding Methods Toilet Bedside Commode Incontinent Completed studies during hospitalization [Text1]: 06/27/18: CT ABDOMEN AND PELVIS: Comparison is 05/10/17. Mild dependent atelectatic changes are seen in the lung bases. The dome of the liver is not included on the film. The liver is normal in size and appearance. No hepatic mass is seen. The gallbladder is negative. No biliary ductal dilatation is seen. The portal and superior mesenteric veins are patent. The pancreas and spleen are unremarkable. The left adrenal nodules are stable. The right adrenal gland is unremarkable. The kidneys are normal in size. There are bilateral renal cysts, which appear stable. No suspicious solid renal masses or obstruction is seen. The urinary bladder is intact. The reproductive organs are grossly unremarkable. The abdominal aorta is of normal caliber. No significant abdominal or pelvic adenopathy, ascites or pneumoperitoneum is present. The bowel shows no evidence of obstruction. There is a moderate amount of retained stool present. No findings to suggest an acute appendicitis. Note is made of a small hiatal hernia. Note is made of small bilateral fat-containing inguinal hernias. The 3.2 x 2.8 cm soft tissue presacral mass is unchanged. It is nonspecific. Degenerative changes are again seen in the spine. Alignment of the spine is unchanged. The compression deformity of the inferior endplate of T12 is unchanged. IMPRESSION: 1. No evidence of an acute abdomen or pelvis. 2. Stable presacral soft tissue mass. 3. Bilateral fat-containing inguinal hernias and a small hiatal hernia. Labs on day of discharge: Labs from last 24 hours 06/28/18 06/28/18 07:00 07:00 WBC 4.26 L D RBC 3.18 L Hgb 9.7 L Hct 30.9 L MCV 97.2 H MCH 30.5 MCHC 31.4 L RDW 17.1 H Plt Count 184 MPV 9.6 Sodium 131 L Potassium 4.4 D Chloride 98 Carbon Dioxide 25.9 Anion Gap 7.1 BUN 14 Creatinine 0.85 Estimated GFR/1.73 m2 >= 60.00 Glucose 112 H Calcium 9.1 Magnesium 2.0
--- NOTE | 2018-06-28 13:26 | PDOC.CMDIS ---
LACE Index Scoring Tool - Questions: Length of Stay (in days): 3 Acuity (Admit via E.D.?): Yes Comorbidities: Liver or Renal Disease E.D. Visits: 14 - Answers: Total Score: 15 Risk of Readmission: High Risk Care Management Discharge Reason for Hospitalization: ETOH abuse, hypokalemia, epigastric pain, N/V Discharge Plan: Leticia will return home. She will follow up with her PCP and plan of care-she will transport via taxi paid for by [facility] and coordinated by this screenplay writer. Patient/Family Education Needs: Re-admission data review; discharge instructions-discuss Ask Me Three. Services Needed at Discharge: Transportation (RCT prior authorization provided by this screenplay writer for [facility])
--- NOTE | 2018-06-28 13:30 | CMDISCH_ITS ---
LACE Index Scoring Tool - Questions: Length of Stay (in days): 3 Acuity (Admit via E.D.?): Yes Comorbidities: Liver or Renal Disease E.D. Visits: 14 - Answers: Total Score: 15 Risk of Readmission: High Risk Care Management Discharge Reason for Hospitalization: ETOH abuse, hypokalemia, epigastric pain, N/V Discharge Plan: Leticia will return home. She will follow up with her PCP and plan of care-she will transport via taxi paid for by [facility] and coordinated by this tag writer. Patient/Family Education Needs: Re-admission data review; discharge instructions -discuss Ask Me Three. Services Needed at Discharge: Transportation (RCT prior authorization provided by this tag writer for [facility])
== END 2018-06-28 15:38 | disposition home or self-care (01) | DRG 392 ==
LOC: ER 17:28 → MS 18:26
PROVIDERS: Internal Medicine; Nurse Practitioner; Nurse Practitioner Primary Care; Admitting Provider Internal Medicine; Emergency Provider Student in an Organized Health Care Education/Training Program; PCP Family Medicine; Visit Provider Internal Medicine
DX: K29.20 Alcoholic gastritis without bleeding (principal); F10.20 Alcohol dependence, uncomplicated; E87.6 Hypokalemia; E83.42 Hypomagnesemia; I10 Essential (primary) hypertension; R00.0 Tachycardia, unspecified; D64.9 Anemia, unspecified; F32.9 Major depressive disorder, single episode, unspecified
CPT/HCPCS: 36415; 36416; 80048; 80053; 80307; 82805; 82962; 83690; 85027; 93005; 96361; 96365; 96366; 96367; 96368; 96372; 96375; 99223; 99232; 99239; 99285; J1650; 74177; 80320; 81003; 81015; 83735; 84100; 84484; 85025; 93010; J2060; J2405; J3475; J3480; J3490; L3650

== ENCOUNTER 2018-07-08 11:20 | Emergency (ER) | payer OTHER, SELFPAY ==
[2018-07-08] VITALS (24 sets, daily range): BP systolic 107–168; BP diastolic 53–99; PULSE 106–137; RESP 21–32; TEMP 36.6; O2SAT 90–100
--- NOTE | 2018-07-08 11:46 | ED.GENADUL_ITS ---
Discharge Plan Disposition Patient Disposition: HOME Condition: Stable Discharge Details Chief Complaint: ETOHWithdr Clinical Impression: Alcohol withdrawal Primary Care Provider: Lavelle Galindo ED Provider: Blaze Mccarthy [place] Meds and New Rx's Prescriptions: New chlordiazepoxide HCl 25 mg capsule See Label Instructions .ROUTE .COMPLEX Qty: 30 RF: 0 No Action fluticasone 16 GM spray,suspension 1 spr NS daily prn Qty: 3 RF: 3 gabapentin 100 MG capsule 2 tab PO BID Qty: 360 RF: 3 venlafaxine 37.5 MG tablet 37.5 mg PO DAILY Qty: 90 RF: 3 naltrexone 50 MG tablet 50 mg PO DAILY Qty: 30 RF: 2 pyridoxine (vitamin B6) [Vitamin B-6] 50 MG tablet 50 mg PO nightly Qty: 60 RF: 4 potassium chloride 20 MEQ tablet extended release 20 meq PO BID Qty: 180 RF: 3 polyethylene glycol 3350 17 GM powder in packet 17 gm PO DAILY PRN PRN (Reason: Constipation) RF: 0 tramadol 50 MG tablet 50 mg PO Q6H PRN PRNRF: 0 acetaminophen [Mapap Extra Strength] 500 MG tablet 500 mg PO Q6H RF: 0 venlafaxine 150 mg Capsule,Extended Release 24hr 150 mg PO DAILY Qty: 30 RF: 0 spironolactone 25 mg Tablet 50 mg PO DAILY Qty: 30 RF: 0 magnesium oxide 400 mg (241.3 mg magnesium) Tablet 400 mg PO TID Qty: 120 RF: 0 pantoprazole 40 mg Tablet,Delayed Release (Dr/Ec) 40 mg PO BID@0730,2000 Qty: 60 RF: 0 ranitidine HCl 150 mg Tablet 150 mg PO BID Qty: 60 RF: 0 ondansetron HCl 4 MG tablet 4 mg PO Q6H PRN PRNQty: 15 RF: 0 losartan 50 mg Tablet 100 mg PO DAILY Qty: 30 RF: 0 carisoprodol [Soma] 350 mg Tablet 350 mg PO TID Qty: 15 RF: 0 lidocaine [Lidoderm] 5 % Adhesive Patch,Medicated 2 patch Topical DAILY Qty: 1 RF: 0 ciprofloxacin HCl 500 mg tablet 500 mg PO Q12H Qty: 10 RF: 0 carvedilol [Coreg] 6.25 mg Tablet 6.25 mg PO BID Qty: 0 RF: 0 cyanocobalamin (vitamin B-12) [Vitamin B-12] 500 mcg Tablet 1,000 mcg PO DAILY Qty: 0 RF: 0 amlodipine 10 mg Tablet 10 mg PO DAILY Qty: 0 RF: 0 folic acid 1 mg Tablet 1 mg PO DAILY Qty: 0 RF: 0 multivitamin [Multiple Vitamins] Tablet 1 tab PO DAILY Qty: 0 RF: 0 venlafaxine [Effexor XR] 37.5 mg Capsule,Extended Release 24hr 37.5 mg PO DAILY Qty: 0 RF: 0 sucralfate 1 gram Tablet 1 g PO AC & HS Qty: 0 RF: 0 cholecalciferol (vitamin D3) 1,000 unit Tablet 2,000 units PO DAILY Qty: 0 RF: 0 thiamine mononitrate (vit B1) [Vitamin B-1 (mononitrate)] 100 mg Tablet 100 mg PO QAM Qty: 0 RF: 0 oxazepam 15 mg capsule 15 mg PO TID Qty: 9 RF: 0 naloxone [Narcan] 4 mg/actuation spray,non-aerosol 1 spray EZIO ONCE PRN (Reason: opioid overdose) Qty: 2 RF: 0 Discharge Instructions Additional Instructions: do not drink alcohol if you take the chlordiazepoxide if you have significant worsening of sympoms return to the emergency department follow up with your primary care provider's office within a week Medical Decision Making 73 yo female with hx of alcoholism who last had alcohol yesterday afternoon, frequent alcohol withdrawal comes in with n/v since 3am and tremors and states this feels exactly like her prior withdrawals. Has mild epigastric pain that she states she normally gets, and has mild tenderness in epigastric area otherwise no distention, ruq pain and normal bowel sounds so doubt sbo or other surgical pathology at this time. No chest pain or sob so doubt acs at htis time. Will treat her symptoms and eval for electrolyte abnormalities and monitor pt tremors and n/v resolved after ativan, given librium and tolerating PO now. Awaiting lab work labs show low mag and anion gap of 20 likely alcoholic ketosis. Will tx with fluids and recheck. Remains stable and feels much better, no n/v or tremors repeat anion gap is 11, tolerating PO and only has mild tachycardia of 110. She states she is interested in giving up alcohol so will prescribe librum and advised she should not drink alcohol with this. Will have her f/u with pcp this week and return precautions given Differential Diagnosis alcohol withdrawal, sbo, electrolyte abnormality Lab Data Lab results reviewed: Yes I reviewed the patient's lab results. HPI General Mode of arrival: wheelchair . Date/Time Provider Initiated Documentation: 07/08/18 11:21 . Limitations to Documentation: no limitations . Information obtained by: patient . History of Present Illness 73 year old F presents to the emergency department with the chief complaint of nausea and vomit, described as moderate, with intensity rated at 3. Patient started experiencing this hour(s) (8) and it has been constant. No relieving factors improve symptom(s), No exacerbating factors reported . Patient notes no other symptoms.. Related Data Home Medications Medication Instructions Recorded Confirmed fluticasone 1 spr NS daily prn #3 bottle 09/03/16 07/05/18 gabapentin 2 tab PO BID #360 cap 03/25/17 07/05/18 naltrexone 50 mg PO DAILY #30 tab-cap 11/04/17 07/05/18 pyridoxine (vitamin B6) [Vitamin 50 mg PO nightly #60 cap 11/04/17 07/05/18 B-6] venlafaxine 37.5 mg PO DAILY #90 tab-cap 11/04/17 07/05/18 ondansetron HCl 4 mg PO Q6H PRN PRN #15 tab-cap 12/21/17 07/05/18 potassium chloride 20 meq PO BID #180 tab-cap 03/30/18 07/05/18 acetaminophen [Mapap Extra 500 mg PO Q6H tab 04/17/18 07/05/18 Strength] polyethylene glycol 3350 17 gm PO DAILY PRN PRN packet 04/17/18 07/05/18 tramadol 50 mg PO Q6H PRN PRN tab 04/17/18 07/05/18 magnesium oxide 400 mg PO TID #120 tab 05/24/18 07/05/18 pantoprazole 40 mg PO BID@0730,2000 #60 tab 05/24/18 07/05/18 ranitidine HCl 150 mg PO BID #60 tab 05/24/18 07/05/18 spironolactone 50 mg PO DAILY #30 tab 05/24/18 07/05/18 venlafaxine 150 mg PO DAILY #30 cap 05/24/18 07/05/18 carisoprodol [Soma] 350 mg PO TID #15 tab 06/14/18 07/05/18 ciprofloxacin HCl 500 mg PO Q12H #10 tab 06/14/18 07/05/18 lidocaine [Lidoderm] 2 patch TOPICAL DAILY #1 pkg 06/14/18 07/05/18 losartan 100 mg PO DAILY #30 tab 06/14/18 07/05/18 amlodipine 10 mg PO DAILY #0 tab 06/28/18 07/05/18 carvedilol [Coreg] 6.25 mg PO BID #0 tab 06/28/18 07/05/18 cholecalciferol (vitamin D3) 2,000 units PO DAILY #0 tab 06/28/18 07/05/18 cyanocobalamin (vitamin B-12) 1,000 mcg PO DAILY #0 tab 06/28/18 07/05/18 [Vitamin B-12] folic acid 1 mg PO DAILY #0 tab 06/28/18 07/05/18 multivitamin [Multiple Vitamins] 1 tab PO DAILY #0 tab 06/28/18 07/05/18 naloxone [Narcan] 1 spray EZIO ONCE PRN #2 each 06/28/18 07/05/18 oxazepam 15 mg PO TID #9 cap 06/28/18 07/05/18 sucralfate 1 g PO AC & HS #0 tab 06/28/18 07/05/18 thiamine mononitrate (vit B1) 100 mg PO QAM #0 tab 06/28/18 07/05/18 [Vitamin B-1 (mononitrate)] venlafaxine [Effexor XR] 37.5 mg PO DAILY #0 cap 06/28/18 07/05/18 chlordiazepoxide HCl See Label Instructions .ROUTE 07/08/18 .COMPLEX #30 cap Previous Rx's Medication Instructions Recorded naltrexone 50 mg PO DAILY #30 tab-cap 11/04/17 pyridoxine (vitamin B6) [Vitamin 50 mg PO nightly #60 cap 11/04/17 B-6] venlafaxine 37.5 mg PO DAILY #90 tab-cap 11/04/17 ondansetron HCl 4 mg PO Q6H PRN PRN #15 tab-cap 12/21/17 potassium chloride 20 meq PO BID #180 tab-cap 03/30/18 acetaminophen [Mapap Extra 500 mg PO Q6H tab 04/17/18 Strength] polyethylene glycol 3350 17 gm PO DAILY PRN PRN packet 04/17/18 tramadol 50 mg PO Q6H PRN PRN tab 04/17/18 magnesium oxide 400 mg PO TID #120 tab 05/24/18 pantoprazole 40 mg PO BID@0730,2000 #60 tab 05/24/18 ranitidine HCl 150 mg PO BID #60 tab 05/24/18 spironolactone 50 mg PO DAILY #30 tab 05/24/18 venlafaxine 150 mg PO DAILY #30 cap 05/24/18 carisoprodol [Soma] 350 mg PO TID #15 tab 06/14/18 ciprofloxacin HCl 500 mg PO Q12H #10 tab 06/14/18 lidocaine [Lidoderm] 2 patch TOPICAL DAILY #1 pkg 06/14/18 losartan 100 mg PO DAILY #30 tab 06/14/18 amlodipine 10 mg PO DAILY #0 tab 06/28/18 carvedilol [Coreg] 6.25 mg PO BID #0 tab 06/28/18 cholecalciferol (vitamin D3) 2,000 units PO DAILY #0 tab 06/28/18 cyanocobalamin (vitamin B-12) 1,000 mcg PO DAILY #0 tab 06/28/18 [Vitamin B-12] folic acid 1 mg PO DAILY #0 tab 06/28/18 multivitamin [Multiple Vitamins] 1 tab PO DAILY #0 tab 06/28/18 naloxone [Narcan] 1 spray EZIO ONCE PRN #2 each 06/28/18 oxazepam 15 mg PO TID #9 cap 06/28/18 sucralfate 1 g PO AC & HS #0 tab 06/28/18 thiamine mononitrate (vit B1) 100 mg PO QAM #0 tab 06/28/18 [Vitamin B-1 (mononitrate)] venlafaxine [Effexor XR] 37.5 mg PO DAILY #0 cap 06/28/18 chlordiazepoxide HCl See Label Instructions .ROUTE 07/08/18 .COMPLEX #30 cap Allergies Allergy/AdvReac Type Severity Reaction Status Date / Time Penicillins Allergy Mild Rash Unverified 07/05/18 11:39 ramipril Allergy Unknown ITCHING Unverified 07/05/18 11:39 meperidine [From Demerol] AdvReac Severe Nausea Unverified 07/05/18 11:39 bupropion AdvReac Mild GI upset Unverified 07/05/18 11:39 AMBER Inhibitors AdvReac Unknown COUGH Unverified 07/05/18 11:39 alendronate sodium AdvReac Unknown GI Distress Unverified 07/05/18 11:39 clarithromycin AdvReac Unknown intolerant Unverified 07/05/18 11:39 paroxetine AdvReac Unknown Diarrhea Unverified 07/05/18 11:39 General Stated Complaint: ETOHWithdr JORDAN: 3 Review of Systems Review of Systems All systems reviewed & are unremarkable except as noted in HPI and below Constitutional Denies chills, Denies fever(s) and Denies weakness Eyes Denies loss of vision ENT Denies change in voice Cardiovascular Denies chest pain and Denies dyspnea Respiratory Denies dyspnea Genitourinary Denies dysuria Musculoskeletal Denies joint swelling Integumentary/Breasts Denies rash Neurologic Denies loss of vision and Denies weakness Psychiatric Denies depression Endocrine Denies cold intolerance and Denies heat intolerance Allergic/Immunologic Denies urticaria PFSH Family History Mother No problems noted. Father No problems noted. Sister Personal history of malignant neoplasm Sister No problems noted. Grandfather Personal history of malignant neoplasm Grandfather Personal history of malignant neoplasm Grandmother Heart disease Acute ill-defined cerebrovascular disease Grandmother Personal history of malignant neoplasm Aunt Heart disease Aunt Heart disease Brother No problems noted. Medical History Chronic alcoholic gastritis (Chronic 10/12/17) Urinary incontinence (Chronic) Tubular adenoma of colon (Chronic 01/28/17) Sciatica (Chronic) 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) Osteopenia (Chronic) Osteoarthritis (Chronic 03/29/14) Non-cardiac chest pain (Chronic 09/21/16) Macrocytosis (Chronic 09/26/14) Hyperlipidemia (Chronic 02/23/13) Genital herpes simplex (Chronic) GI bleed (Chronic 12/20/16) Elev transaminase/LDH (Chronic) Cervical radicular pain (Chronic) Cataract (Chronic 11/07/15) Anemia (Chronic 12/20/16) Allergic rhinitis (Chronic) Alcohol abuse (Chronic) Alcoholic ketosis (Resolved) Alcohol abuse (Chronic) Hypertension (Acute) Hyperlipidemia (Chronic) Back pain, chronic (Chronic) Depression (Chronic) Osteoarthritis (Chronic) Osteopenia (Chronic) Urinary incontinence (Chronic) 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) Headache (Chronic) Gastritis (Chronic) Wernicke encephalopathy (Chronic) GERD (gastroesophageal reflux disease) (Chronic) Falling (Chronic) Right rib fracture (Acute) Alcohol dependence (Chronic) Anemia (Chronic) Alcohol abuse Depression Essential hypertension Hyperlipidemia Osteoarthritis Sciatica Urinary incontinence Social History Smoking/Tobacco Use Status: Former Tobacco Use Surgical History Bladder Surgery Colonoscopy - MAC (01/28/17) EGD - MAC (12/20/16) Ligation of fallopian tube Repair bladder injury, simple Exam Const Orientation: alert HENMT Head: normal to inspection Ears: external ears normal General nose exam: external nose normal Mouth: moist mucous membranes Eyes General: appearance normal, both eyes and all related structures Neck Neck: normal visual inspection Resp Effort & Inspection: normal respiratory effort and able to speak in complete sentences Cardio Rate: regular rate Skin General skin exam: no rashes or lesions noted Neuro General: alert and oriented x3 Extrem General: normal to inspection Psych Mental Status: mental status grossly normal Course Vital Signs Temperature 36.6 C 07/08/18 11:26 Pulse 136 H 07/08/18 11:26 Respiratory Rate 28 H 07/08/18 11:26 Blood Pressure 140/73 07/08/18 11:26 Pulse Oximetry 100 07/08/18 11:26 Temperature 36.6 C 07/08/18 11:26 Temperature Source Temporal Artery Scan 07/08/18 11:26 Pulse 136 H 07/08/18 11:26 Respiratory Rate 28 H 07/08/18 11:26 Blood Pressure 140/73 07/08/18 11:26 Blood Pressure Position Sitting 07/08/18 11:26 Pulse Oximetry 100 07/08/18 11:26 Oxygen Delivery Method Room Air 07/08/18 11:26 Oxygen Flow Rate 0 11/10/18 11:26 Pain Level 6 07/08/18 11:26
[2018-07-08] MEDS: LORazepam 2 MG/ML VIAL 3 MG IVP (11:48)
[2018-07-08] MEDS: Normal Saline 1,000 ML 1000 ML IV ×2 (11:50→13:12)
[2018-07-08] MEDS: THIAMINE 100 MG in Normal Saline 100 ML 200 MG IVPB (12:01)
[2018-07-08] MEDS: MAGNESIUM SULFATE 2 GM/50 ML BAG IVPB (12:02)
[2018-07-08 12:13] LABS: Abs Immature Grans 0.02 k/cumm (0.0-0.09); Absolute Basophil Count 0.01 k/cumm (0.0-0.2); Absolute Lymphocyte Count 0.39 k/cumm (1.2-3.4); Absolute Neutrophil Count 11.44 k/cumm (1.2-6.7); Basophils % 0.1; HCT 36.7 % (36.0-46.0); HGB 11.8 g/dL (12.0-15.5); Immature Grans % 0.2; Lymphocytes % 3.2; Mean Corp. HGB Concentration 32.2 g/dL (32.0-36.0); Mean Corpuscular Hemoglobin 30.6 pg (27.0-33.0); Mean Corpuscular Volume 95.1 fL (80-95); Mean Platelet Volume 9.5 fL (8.0-11.0); Monocytes % 2.5; Platelet Count 281 x1000/uL (130-400); RBC 3.86 m/cumm (4.00-5.20); RBC Distribution Width 17.1 % (11.7-14.6); White Blood Cell Count 12.17 k/cumm (4.4-10.8)
--- NOTE | 2018-07-08 12:19 | NUR.NOTE ---
MD Mccarthy is aware that patient appears comfortable, resting with eyes closed, RR WNL, no longer dry heaving. HR remains in the 130s.
[2018-07-08 12:25] LABS: ALT 26 U/L (12-78); AST 22 U/L (15-37); Albumin 4.3 g/dL (3.4-5.0); Alkaline Phosphatase 99 U/L (46-116); Anion Gap 20.4 mmol/L (3-11); BUN 18 mg/dL (7-18); Bilirubin, Direct 0.23 mg/dL (0.00-0.20); Bilirubin, Total 1.4 mg/dL (0.2-1.0); CO2 22.6 mmol/L (21.0-32.0); CREATININE 1.46 mg/dL (0.55-1.02); Chloride 95 mmol/L (98-107); Estimated GFR 35.22 (mL/min/1.73m2); Glucose 234 mg/dL (70-100); Lipase 103 U/L (73-393); Magnesium 1.4 mg/dL (1.8-2.4); Potassium 3.2 mmol/L (3.5-5.1); Sodium 138 mmol/L (136-145)
[2018-07-08] MEDS: chlordiazePOXIDE 25 MG CAP 50 MG PO (12:27)
[2018-07-08 12:37] LABS: ETHANOL BLOOD < 3.0 mg/dL (<3)
--- NOTE | 2018-07-08 13:10 | NUR.NOTE ---
pt. continues to rest comfortably, sleeping, easily aroused. Tachycardia remains. MD Mccarthy aware. O2 sat occasionally drops to 89%, placed on 2L NC.
[2018-07-08 14:21] LABS: BUN 16 mg/dL (7-18); CREATININE 0.91 mg/dL (0.55-1.02); Calcium 8.7 mg/dL (8.5-10.1); Chloride 104 mmol/L (98-107); Glucose 146 mg/dL (70-100); Potassium 3.2 mmol/L (3.5-5.1); Sodium 141 mmol/L (136-145)
== END 2018-07-08 15:03 | disposition home or self-care (01) ==
PROVIDERS: Emergency Provider Emergency Medicine; PCP Family Medicine
DX: F10.230 Alcohol dependence with withdrawal, uncomplicated (principal); I10 Essential (primary) hypertension
CPT/HCPCS: 36415; 80048; 80053; 80076; 83690; 96361; 96365; 96368; 99284; 80320; 83735; 85025; J2060

== ENCOUNTER 2018-07-19 10:19 | Emergency (ER) | payer OTHER, SELFPAY ==
[2018-07-19] VITALS (48 sets, daily range): BP systolic 155–197; BP diastolic 58–102; PULSE 89–117; RESP 12–121; TEMP 37; O2SAT 94–99
--- NOTE | 2018-07-19 11:28 | NUR.NOTE ---
This RN attempted PIV access X2 without success. Pt. is alert, intermittently cooperative, redirecatable. VSS on the monitor.
--- NOTE | 2018-07-19 11:46 | W.ED.GENAD ---
Discharge Plan Disposition Patient Disposition: HOME Condition: Stable Discharge Details Chief Complaint: ETOHWithdr Clinical Impression: Alcohol abuse, Depression Reason For Visit: LUÍS Primary Care Provider: Lavelle Galindo ED Provider: Megan Foster Home Meds and New Rx's Prescriptions: Continue fluticasone 16 GM spray,suspension 1 spr NS daily prn Qty: 3 RF: 3 gabapentin 100 MG capsule 2 tab PO BID Qty: 360 RF: 3 venlafaxine 37.5 MG tablet 37.5 mg PO DAILY Qty: 90 RF: 3 naltrexone 50 MG tablet 50 mg PO DAILY Qty: 30 RF: 2 pyridoxine (vitamin B6) [Vitamin B-6] 50 MG tablet 50 mg PO nightly Qty: 60 RF: 4 potassium chloride 20 MEQ tablet extended release 20 meq PO BID Qty: 180 RF: 3 polyethylene glycol 3350 17 GM powder in packet 17 gm PO DAILY PRN PRN (Reason: Constipation) RF: 0 tramadol 50 MG tablet 50 mg PO Q6H PRN PRNRF: 0 acetaminophen [Mapap Extra Strength] 500 MG tablet 500 mg PO Q6H RF: 0 venlafaxine 150 mg Capsule,Extended Release 24hr 150 mg PO DAILY Qty: 30 RF: 0 spironolactone 25 mg Tablet 50 mg PO DAILY Qty: 30 RF: 0 magnesium oxide 400 mg (241.3 mg magnesium) Tablet 400 mg PO TID Qty: 120 RF: 0 pantoprazole 40 mg Tablet,Delayed Release (Dr/Ec) 40 mg PO BID@0730,2000 Qty: 60 RF: 0 ranitidine HCl 150 mg Tablet 150 mg PO BID Qty: 60 RF: 0 chlordiazepoxide HCl 25 mg capsule See Label Instructions .ROUTE .COMPLEX Qty: 30 RF: 0 ondansetron HCl 4 MG tablet 4 mg PO Q6H PRN PRNQty: 15 RF: 0 losartan 50 mg Tablet 100 mg PO DAILY Qty: 30 RF: 0 carisoprodol [Soma] 350 mg Tablet 350 mg PO TID Qty: 15 RF: 0 lidocaine [Lidoderm] 5 % Adhesive Patch,Medicated 2 patch Topical DAILY Qty: 1 RF: 0 ciprofloxacin HCl 500 mg tablet 500 mg PO Q12H Qty: 10 RF: 0 carvedilol [Coreg] 6.25 mg Tablet 6.25 mg PO BID Qty: 0 RF: 0 cyanocobalamin (vitamin B-12) [Vitamin B-12] 500 mcg Tablet 1,000 mcg PO DAILY Qty: 0 RF: 0 amlodipine 10 mg Tablet 10 mg PO DAILY Qty: 0 RF: 0 folic acid 1 mg Tablet 1 mg PO DAILY Qty: 0 RF: 0 multivitamin [Multiple Vitamins] Tablet 1 tab PO DAILY Qty: 0 RF: 0 venlafaxine [Effexor XR] 37.5 mg Capsule,Extended Release 24hr 37.5 mg PO DAILY Qty: 0 RF: 0 sucralfate 1 gram Tablet 1 g PO AC & HS Qty: 0 RF: 0 cholecalciferol (vitamin D3) 1,000 unit Tablet 2,000 units PO DAILY Qty: 0 RF: 0 thiamine mononitrate (vit B1) [Vitamin B-1 (mononitrate)] 100 mg Tablet 100 mg PO QAM Qty: 0 RF: 0 oxazepam 15 mg capsule 15 mg PO TID Qty: 9 RF: 0 naloxone [Narcan] 4 mg/actuation spray,non-aerosol 1 spray EZIO ONCE PRN (Reason: opioid overdose) Qty: 2 RF: 0 Discharge Instructions Instructions: Depression (ED), Abuse of Alcohol (ED) Additional Instructions: Take your regular medications as directed. Follow-up with your primary care doctor in 1 week. Return immediately to the emergency department any worsening or new concerning symptoms per Discharge Data Discharge Date/Time-TO BE ENTERED AT DEPARTURE: 07/19/18 18:27 Discharge Physician: Megan Foster Medical Decision Making 73-year-old female well-known to the emergency department for alcohol intoxication, alcohol withdrawal, frequent falls who presents for alcohol intoxication and a statement of possible suicidal ideation. Patient states she currently denies being actively suicidal but states I do not care if I . Son called [facility] for patient stating I know where my gun is. Patient states she has no intent to kill herself and states she said this because my son does not care . Patient appears mildly intoxicated. Blood pressure hypertensive. Heart rate tachycardic. Afebrile. She otherwise appears nontoxic and is able to answer questions appropriately. Will place an IV, bolus IV fluids, labs, EKG, urinalysis, UDS and alcohol level. Will call mental health pending alcohol level and if negative will call to have them evaluate patient. Patient initially refused IV placement and states I want to go home to take care of my dogs and cats. EKG notes a rate of 106, sinus tachycardia no acute ST elevation or depression. T wave inversion in lead III and aVF which is been seen in previous. QTc 41. QRS 94 1305 --labs reviewed and notes potassium 3.2, magnesium 1.6, anion gap 14.8, alcohol 108. Will replete magnesium and potassium. Discussed with mental health and they were not evaluate until alcohol zero -which will be approximately around 4pm. Concern would be possible withdrawal as well. Patient has not taken any of her blood pressure medications today. Will order a dose of amlodipine and Coreg and Ativan as needed. Patient does not seem to be in acute withdrawal at this time, no tremors. 1630 --discussed with mental health who evaluated patient and patient denies any suicidal ideation or intent. Tammie discussed with patient and patient states she thinks she does own a gun but she does not know where it is and she does not know where the ammunition is. Patient is refusing any follow-up with mental health. Patient denies any suicidal ideation or intent to me. Patient is requesting to go home to take care of her animals. Urinalysis just obtained and there is moderate bacteria but negative leukocyte esterase, negative WBCs, urine culture sent. Patient states she had recent urinary tract infection but did not take antibiotics. She has no fever and a normal white blood cell count so will hold on antibiotics and await urine culture results. UDS notes benzodiazepines otherwise negative. Patient demonstrates no signs of acute alcohol withdrawal or intoxication. She demonstrates capacity to make decisions. There are no tremors, heart rate within normal limits. SBP 170. I feel that patient is safe for discharge home and she is requesting to leave as soon as possible. Patient instructed return here with any concerns. HPI General Mode of arrival: EMS. Date/Time Provider Initiated Documentation: 07/19/18 10:29. Limitations to Documentation: no limitations. Information obtained by: patient. HPI Narrative: Patient is a 73-year-old female well-known to the emergency department for alcohol intoxication, alcohol withdrawal frequent falls who presents for alcohol intoxication and suicidal ideation. Patient currently denies feeling suicidal but states I do not care if I . EMS stated that they were called after son called [facility] stating that patient threatened to kill herself with a gun. Patient states she only said to her son I know where my gun is. She states she said this to him because he does not care. She states no one cares, not my son or the hospital . Patient denies any acute medical complaints. She states she last drank alcohol last night. EMS states that patient drank 1/5 of liquor today. Past medical history: Hypertension, hyperlipidemia, alcohol abuse, chronic back pain, GERD, Wernicke encephalopathy, Pancreatitis, Anemia Surgical history: Bladder surgery, cataract surgery Social history: Former tobacco smoker, daily alcohol and marijuana use Meds: See list Allergies: See list Related Data Home Medications Medication Instructions Recorded Confirmed fluticasone 1 spr NS daily prn #3 bottle 09/03/16 07/19/18 gabapentin 2 tab PO BID #360 cap 03/25/17 07/19/18 naltrexone 50 mg PO DAILY #30 tab-cap 11/04/17 07/19/18 pyridoxine (vitamin B6) [Vitamin 50 mg PO nightly #60 cap 11/04/17 07/19/18 B-6] venlafaxine 37.5 mg PO DAILY #90 tab-cap 11/04/17 07/19/18 ondansetron HCl 4 mg PO Q6H PRN PRN #15 tab-cap 12/21/17 07/19/18 potassium chloride 20 meq PO BID #180 tab-cap 03/30/18 07/19/18 acetaminophen [Mapap Extra 500 mg PO Q6H tab 04/17/18 07/19/18 Strength] polyethylene glycol 3350 17 gm PO DAILY PRN PRN packet 04/17/18 07/19/18 tramadol 50 mg PO Q6H PRN PRN tab 04/17/18 07/19/18 magnesium oxide 400 mg PO TID #120 tab 05/24/18 07/19/18 pantoprazole 40 mg PO BID@0730,2000 #60 tab 05/24/18 07/19/18 ranitidine HCl 150 mg PO BID #60 tab 05/24/18 07/19/18 spironolactone 50 mg PO DAILY #30 tab 05/24/18 07/19/18 venlafaxine 150 mg PO DAILY #30 cap 05/24/18 07/19/18 carisoprodol [Soma] 350 mg PO TID #15 tab 06/14/18 07/19/18 ciprofloxacin HCl 500 mg PO Q12H #10 tab 06/14/18 07/19/18 lidocaine [Lidoderm] 2 patch TOPICAL DAILY #1 pkg 06/14/18 07/19/18 losartan 100 mg PO DAILY #30 tab 06/14/18 07/19/18 amlodipine 10 mg PO DAILY #0 tab 06/28/18 07/19/18 carvedilol [Coreg] 6.25 mg PO BID #0 tab 06/28/18 07/19/18 cholecalciferol (vitamin D3) 2,000 units PO DAILY #0 tab 06/28/18 07/19/18 cyanocobalamin (vitamin B-12) 1,000 mcg PO DAILY #0 tab 06/28/18 07/19/18 [Vitamin B-12] folic acid 1 mg PO DAILY #0 tab 06/28/18 07/19/18 multivitamin [Multiple Vitamins] 1 tab PO DAILY #0 tab 06/28/18 07/19/18 naloxone [Narcan] 1 spray EZIO ONCE PRN #2 each 06/28/18 07/19/18 oxazepam 15 mg PO TID #9 cap 06/28/18 07/19/18 sucralfate 1 g PO AC & HS #0 tab 06/28/18 07/19/18 thiamine mononitrate (vit B1) 100 mg PO QAM #0 tab 06/28/18 07/19/18 [Vitamin B-1 (mononitrate)] venlafaxine [Effexor XR] 37.5 mg PO DAILY #0 cap 06/28/18 07/19/18 chlordiazepoxide HCl See Label Instructions .ROUTE 07/08/18 07/19/18 .COMPLEX #30 cap Previous Rx's Medication Instructions Recorded naltrexone 50 mg PO DAILY #30 tab-cap 11/04/17 pyridoxine (vitamin B6) [Vitamin 50 mg PO nightly #60 cap 11/04/17 B-6] venlafaxine 37.5 mg PO DAILY #90 tab-cap 11/04/17 ondansetron HCl 4 mg PO Q6H PRN PRN #15 tab-cap 12/21/17 potassium chloride 20 meq PO BID #180 tab-cap 03/30/18 acetaminophen [Mapap Extra 500 mg PO Q6H tab 04/17/18 Strength] polyethylene glycol 3350 17 gm PO DAILY PRN PRN packet 04/17/18 tramadol 50 mg PO Q6H PRN PRN tab 04/17/18 magnesium oxide 400 mg PO TID #120 tab 05/24/18 pantoprazole 40 mg PO BID@0730,2000 #60 tab 05/24/18 ranitidine HCl 150 mg PO BID #60 tab 05/24/18 spironolactone 50 mg PO DAILY #30 tab 05/24/18 venlafaxine 150 mg PO DAILY #30 cap 05/24/18 carisoprodol [Soma] 350 mg PO TID #15 tab 06/14/18 ciprofloxacin HCl 500 mg PO Q12H #10 tab 06/14/18 lidocaine [Lidoderm] 2 patch TOPICAL DAILY #1 pkg 06/14/18 losartan 100 mg PO DAILY #30 tab 06/14/18 amlodipine 10 mg PO DAILY #0 tab 06/28/18 carvedilol [Coreg] 6.25 mg PO BID #0 tab 06/28/18 cholecalciferol (vitamin D3) 2,000 units PO DAILY #0 tab 06/28/18 cyanocobalamin (vitamin B-12) 1,000 mcg PO DAILY #0 tab 06/28/18 [Vitamin B-12] folic acid 1 mg PO DAILY #0 tab 06/28/18 multivitamin [Multiple Vitamins] 1 tab PO DAILY #0 tab 06/28/18 naloxone [Narcan] 1 spray EZIO ONCE PRN #2 each 06/28/18 oxazepam 15 mg PO TID #9 cap 06/28/18 sucralfate 1 g PO AC & HS #0 tab 06/28/18 thiamine mononitrate (vit B1) 100 mg PO QAM #0 tab 06/28/18 [Vitamin B-1 (mononitrate)] venlafaxine [Effexor XR] 37.5 mg PO DAILY #0 cap 06/28/18 chlordiazepoxide HCl See Label Instructions .ROUTE 07/08/18 .COMPLEX #30 cap Allergies Allergy/AdvReac Type Severity Reaction Status Date / Time Penicillins Allergy Mild Rash Unverified 07/19/18 10:29 ramipril Allergy Unknown ITCHING Unverified 07/19/18 10:29 meperidine [From Demerol] AdvReac Severe Nausea Unverified 07/19/18 10:29 bupropion AdvReac Mild GI upset Unverified 07/19/18 10:29 AMBER Inhibitors AdvReac Unknown COUGH Unverified 07/19/18 10:29 alendronate sodium AdvReac Unknown GI Distress Unverified 07/19/18 10:29 clarithromycin AdvReac Unknown intolerant Unverified 07/19/18 10:29 paroxetine AdvReac Unknown Diarrhea Unverified 07/19/18 10:29 General Stated Complaint: ETOHWithdr JORDAN: 3 Review of Systems Review of Systems All systems reviewed & are unremarkable except as noted in HPI and below Constitutional Denies chills, Denies excessive sweating, Denies fatigue, Denies fever(s), Denies weakness and Denies weight loss Eyes Reports system reviewed and no additional complaints, except as docu and Denies blurry vision ENT Denies vertigo, Denies dizziness, Denies otalgia, Denies nasal congestion, Denies sore throat and Denies throat swelling Cardiovascular Denies chest pain, Denies syncope, Denies rapid heart rate and Denies dyspnea Respiratory Denies dyspnea Gastrointestinal Denies abdominal pain, Denies diarrhea and Denies vomiting Genitourinary Denies hematuria, Denies dysuria and Denies flank pain Musculoskeletal Denies back pain and Denies joint swelling Integumentary/Breasts Denies lesions and Denies rash Neurologic Denies behavioral changes, Denies confusion, Denies vertigo, Denies dizziness, Denies syncope and Denies weakness Psychiatric Denies behavioral changes, Denies confusion and Reports depression Endocrine Denies excessive sweating and Denies fatigue Hematologic/Lymphatic Denies easy bruising and Denies lymphadenopathy Allergic/Immunologic Denies throat swelling PFSH Family History Mother No problems noted. Father No problems noted. Sister Personal history of malignant neoplasm Sister No problems noted. Grandfather Personal history of malignant neoplasm Grandfather Personal history of malignant neoplasm Grandmother Heart disease Acute ill-defined cerebrovascular disease Grandmother Personal history of malignant neoplasm Aunt Heart disease Aunt Heart disease Brother No problems noted. Medical History Chronic alcoholic gastritis (Chronic 10/12/17) Urinary incontinence (Chronic) Tubular adenoma of colon (Chronic 01/28/17) Sciatica (Chronic) 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) Osteopenia (Chronic) Osteoarthritis (Chronic 03/29/14) Non-cardiac chest pain (Chronic 09/21/16) Macrocytosis (Chronic 09/26/14) Hyperlipidemia (Chronic 02/23/13) Genital herpes simplex (Chronic) GI bleed (Chronic 12/20/16) Elev transaminase/LDH (Chronic) Cervical radicular pain (Chronic) Cataract (Chronic 11/07/15) Anemia (Chronic 12/20/16) Allergic rhinitis (Chronic) Alcohol abuse (Chronic) Alcoholic ketosis (Resolved) Alcohol abuse (Chronic) Hypertension (Acute) Hyperlipidemia (Chronic) Back pain, chronic (Chronic) Depression (Chronic) Osteoarthritis (Chronic) Osteopenia (Chronic) Urinary incontinence (Chronic) 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) Headache (Chronic) Gastritis (Chronic) Wernicke encephalopathy (Chronic) GERD (gastroesophageal reflux disease) (Chronic) Falling (Chronic) Right rib fracture (Acute) Alcohol dependence (Chronic) Anemia (Chronic) Alcohol abuse Depression Essential hypertension Hyperlipidemia Osteoarthritis Sciatica Urinary incontinence Social History Smoking/Tobacco Use Status: Former Tobacco Use Surgical History Bladder Surgery Colonoscopy - MAC (01/28/17) EGD - MAC (12/20/16) Ligation of fallopian tube Repair bladder injury, simple Exam Const General: no acute distress and intoxicated appearing Orientation: awake and other (drowsy but arousable) [facility] Head: normal to inspection Ears: hearing grossly normal bilaterally and external ears normal General nose exam: external nose normal Face and sinus: normal facial exam Eyes General: appearance normal, both eyes and all related structures Eyelids: eyelids normal EOM: EOM intact bilaterally Neck Neck: normal visual inspection Lymphatic: no lymphadenopathy noted Chest Chest: normal inspection of the chest Resp Effort & Inspection: normal respiratory effort and able to speak in complete sentences Auscultation: clear to auscultation bilaterally Cardio Rate: regular rate Rhythm: regular rhythm GI Inspection: normal to inspection Palpation: soft, not firm, no guarding, no hepatosplenomegaly, no masses and nontender Auscultation: normal bowel sounds Skin General skin exam: no rashes or lesions noted Neuro General: alert and awake Cognition: normal cognition Speech: speech normal Motor: muscle tone normal throughout Sensory Exam: no sensory deficits noted Extrem General: normal to inspection, full ROM and no edema Right upper extremity: normal to inspection and shoulder/upper arm (Chronic pain with range of motion due to previous fracture) Left upper extremity: normal to inspection and shoulder/upper arm (Chronic pain with range of motion due to previous fracture) Psych Appearance: grossly normal Mental Status: mental status grossly normal Speech and Movement: speech and movement normal Affect: normal affect Thought Process: normal Course Vital Signs Temperature 98.6 F 07/19/18 10:24 Pulse 117 H 07/19/18 10:24 Respiratory Rate 121 H 07/19/18 10:24 Blood Pressure 197/94 H 07/19/18 10:24 Pulse Oximetry 95 07/19/18 10:24 Temperature 98.6 F 07/19/18 10:24 Temperature Source Skin 07/19/18 10:24 Pulse 117 H 07/19/18 10:24 Respiratory Rate 121 H 07/19/18 10:24 Respiratory Effort Non-Labored 07/19/18 10:24 Blood Pressure 197/94 H 07/19/18 10:24 Blood Pressure Position Supine 07/19/18 10:24 Pulse Oximetry 95 07/19/18 10:24 Pain Level 0 07/19/18 10:24
--- NOTE | 2018-07-19 11:46 | NUR.NOTE ---
[employer]ODUCTION [employer]OUBLES[employer]ER is at the bedside attempting IV
[2018-07-19 11:50] LABS: Abs Immature Grans 0.01 k/cumm (0.0-0.09); Absolute Basophil Count 0.01 k/cumm (0.0-0.2); Absolute Eosinophil Count 0.14 k/cumm (0.0-0.7); Absolute Lymphocyte Count 1.24 k/cumm (1.2-3.4); Absolute Monocyte Count 0.41 k/cumm (0.11-0.7); Absolute Neutrophil Count 2.75 k/cumm (1.2-6.7); Basophils % 0.2; Eosinophils % 3.1; HGB 10.9 g/dL (12.0-15.5); Immature Grans % 0.2; Lymphocytes % 27.2; Mean Corp. HGB Concentration 32.1 g/dL (32.0-36.0); Mean Corpuscular Hemoglobin 31.1 pg (27.0-33.0); Mean Corpuscular Volume 97.1 fL (80-95); Mean Platelet Volume 9.2 fL (8.0-11.0); Neutrophils % 60.3; Platelet Count 163 x1000/uL (130-400); RBC Distribution Width 16.5 % (11.7-14.6); White Blood Cell Count 4.56 k/cumm (4.4-10.8)
[2018-07-19] MEDS: Normal Saline 500 ML IV ×3 (11:59→16:21)
[2018-07-19 12:00] LABS: ETHANOL BLOOD 108.7 mg/dL (<3); Magnesium 1.6 mg/dL (1.8-2.4)
[2018-07-19 12:10] LABS: ALT 31 U/L (12-78); AST 32 U/L (15-37); Alkaline Phosphatase 95 U/L (46-116); Anion Gap 14.8 mmol/L (3-11); BUN 15 mg/dL (7-18); CO2 24.2 mmol/L (21.0-32.0); CREATININE 0.82 mg/dL (0.55-1.02); Calcium 10.3 mg/dL (8.5-10.1); Chloride 102 mmol/L (98-107); Glucose 88 mg/dL (70-100); Potassium 3.2 mmol/L (3.5-5.1); Sodium 141 mmol/L (136-145); Total Protein 7.4 g/dL (6.4-8.2); Troponin I 0.02 ng/mL (0.00-0.06)
--- NOTE | 2018-07-19 12:10 | NUR.NOTE ---
Pt. is currently sleeping, RR WNL. Sitter is at the bedside for safety as she attempted to get out of bed, pt. continues to be redirecatble.
[2018-07-19] MEDS: MAGNESIUM SULFATE 1 GM/100 ML BAG IVPB (13:11)
[2018-07-19] MEDS: Carvedilol 6.25 MG TAB PO (13:51)
[2018-07-19] MEDS: amLODIPine 10 MG TAB PO (13:51)
[2018-07-19] MEDS: POTASSIUM CHLORIDE 20 MEQ/100 ML BAG 50 MEQ IVPB (13:51)
--- NOTE | 2018-07-19 15:17 | NUR.NOTE ---
Pt. is drinking coffee, VSS on the monitor. One to one sitter remains at the bedside.
--- NOTE | 2018-07-19 16:11 | NUR.NOTE ---
Pt. stood up at bedside, changed into new attends. Pt. is alert, is not tremulous, VS improved. Will continue to monitor.
--- NOTE | 2018-07-19 16:34 | PDOC.MHCN ---
Date of service: 07/19/18 Time of Service: 16:34 Mental Health Crisis Note Presenting Issue How did you arrive at the ED and why did you come: Patient states that her son called the police on her for making suicidal statements. The ambulance service was called as the patient had been drinking. The is a self identified alcoholic and there were concerns of alcohol withdraw. Patient was transported to the hospital in order to detox. Precipitating Factors Patient denies SI, HI, and the presence of delusions. She mentions having a gun but is unable to identify the location of the firearm as well as the ammunition for it. She states I think it is on my porch but I would have to find it. The patient denies having intent to harm herself and ana m ever hurting herself in the past. She states that she began drinking heavily after her and her ex- got a divorce. She states that he found a new girlfriend and blah, blah, blah. The patient states that she just wants to go home and be left alone. Disposition BEHAVIOR: No abnormal behavior to report EYE CONTACT: Intermittent MOOD: Patient is slightly agitated at she just wants to go home AFFECT: Appropriate for conversation APPETITE: Unknown SLEEP(trouble falling/staying asleep: Unknown Plan Client refuses to start any services with [facility]. Client is safe to go home as she denies SI/HI. Client contracts for safety. Client states that her plan is to go home and watch television as she always does. Signature Clinician's Name/Title: Tammie Medina - Emergency Clinician
--- NOTE | 2018-07-19 16:46 | PDOC.MHCN_ITS ---
Date of service: 07/19/18 Time of Service: 16:34 Mental Health Crisis Note Presenting Issue How did you arrive at the ED and why did you come: Patient states that her son called the police on her for making suicidal statements. The ambulance service was called as the patient had been drinking. The is a self identified alcoholic and there were concerns of alcohol withdraw. Patient was transported to the hospital in order to detox. Precipitating Factors Patient denies SI, HI, and the presence of delusions. She mentions having a gun but is unable to identify the location of the firearm as well as the ammunition for it. She states I think it is on my porch but I would have to find it. The patient denies having intent to harm herself and ana m ever hurting herself in the past. She states that she began drinking heavily after her and her ex- got a divorce. She states that he found a new girlfriend and blah, blah , blah. The patient states that she just wants to go home and be left alone. Disposition BEHAVIOR: No abnormal behavior to report EYE CONTACT: Intermittent MOOD: Patient is slightly agitated at she just wants to go home AFFECT: Appropriate for conversation APPETITE: Unknown SLEEP(trouble falling/staying asleep: Unknown Plan Client refuses to start any services with [facility]. Client is safe to go home as she denies SI/HI. Client contracts for safety. Client states that her plan is to go home and watch television as she always does. Signature Clinician's Name/Title: Tammie Medina - Emergency Clinician
--- NOTE | 2018-07-19 16:57 | NUR.NOTE ---
Pt. stood up to void in commode independently.
[2018-07-19 17:04] LABS: Bilirubin Negative (Negative); Blood Negative (Negative); Clarity Sl Cloudy; Glucose Negative (Negative); Ketones Negative (Negative); Leukocyte Esterase Negative (Negative); Nitrite Negative (Negative); pH 6.5 (5-8)
[2018-07-19 17:13] LABS: Bacteria Moderate HPF (Negative); C & S Indicated? Yes; Casts Negative LPF (Negative); Crystals Negative HPF (Negative); Epithelial Cells Rare HPF (Negative); Mucus Trace (Negative); Other Cells Negative (Negative); RBC Negative (0-2); WBC Negative HPF (0-5)
[2018-07-19 17:24] LABS: *AMPHETAMINES SCREEN URINE Negative (Negative); *BARBITURATES SCREEN URINE Negative (Negative); *BENZODIAZEPINES SCREEN URINE POSITIVE (Negative); Cannabinoids THC Negative (Negative); Cocaine Screen,Urine Negative (Negative); METHADONE URINE SCREEN Negative (Negative); OPIATES URINE SCREEN Negative (Negative)
[2018-07-19 17:27] LABS: Tricyclic Antidepressants Negative (Negative)
--- NOTE | 2018-07-19 18:22 | NUR.NOTE ---
Pt. is sitting up in chair, eating dinner. Waiting for taxi.
== END 2018-07-19 18:27 | disposition home or self-care (01) ==
PROVIDERS: Emergency Provider Physician Assistant; PCP Family Medicine
DX: F10.120 Alcohol abuse with intoxication, uncomplicated (principal); F32.9 Major depressive disorder, single episode, unspecified; R45.851 Suicidal ideations; R00.0 Tachycardia, unspecified
CPT/HCPCS: 36415; 80053; 80307; 93005; 96361; 96365; 99285; 80320; 81003; 81015; 83735; 84484; 85025; 87086; 93010; 99284; J3475; J3480

== ENCOUNTER 2018-07-21 11:12 | Emergency (ER) | payer OTHER, SELFPAY ==
[2018-07-21 11:18] VITALS: BP 109/76; PULSE 109; RESP 16; TEMP 36.6; O2SAT 100
--- NOTE | 2018-07-21 11:21 | NUR.NOTE ---
Pt. is agitated on arrival, VSS. Pt. is ambulatory with MD on arrival. She alert, skin is pink, warm and dry. Pt. is disheveled.
--- NOTE | 2018-07-21 11:25 | ED.GENADUL_ITS ---
Discharge Plan Disposition Patient Disposition: HOME Condition: Stable Discharge Details Chief Complaint: ETOHWithdr Clinical Impression: Alcohol abuse, Hypokalemia, Hypomagnesemia Reason For Visit: fern Primary Care Provider: Lavelle Galindo ED Provider: Moose Lafleur Home Meds and New Rx's Prescriptions: Continue fluticasone 16 GM spray,suspension 1 spr NS daily prn Qty: 3 RF: 3 gabapentin 100 MG capsule 2 tab PO BID Qty: 360 RF: 3 venlafaxine 37.5 MG tablet 37.5 mg PO DAILY Qty: 90 RF: 3 naltrexone 50 MG tablet 50 mg PO DAILY Qty: 30 RF: 2 pyridoxine (vitamin B6) [Vitamin B-6] 50 MG tablet 50 mg PO nightly Qty: 60 RF: 4 potassium chloride 20 MEQ tablet extended release 20 meq PO BID Qty: 180 RF: 3 polyethylene glycol 3350 17 GM powder in packet 17 gm PO DAILY PRN PRN (Reason: Constipation) RF: 0 tramadol 50 MG tablet 50 mg PO Q6H PRN PRNRF: 0 acetaminophen [Mapap Extra Strength] 500 MG tablet 500 mg PO Q6H RF: 0 venlafaxine 150 mg Capsule,Extended Release 24hr 150 mg PO DAILY Qty: 30 RF: 0 spironolactone 25 mg Tablet 50 mg PO DAILY Qty: 30 RF: 0 magnesium oxide 400 mg (241.3 mg magnesium) Tablet 400 mg PO TID Qty: 120 RF: 0 pantoprazole 40 mg Tablet,Delayed Release (Dr/Ec) 40 mg PO BID@0730,2000 Qty: 60 RF: 0 ranitidine HCl 150 mg Tablet 150 mg PO BID Qty: 60 RF: 0 chlordiazepoxide HCl 25 mg capsule See Label Instructions .ROUTE .COMPLEX Qty: 30 RF: 0 ondansetron HCl 4 MG tablet 4 mg PO Q6H PRN PRNQty: 15 RF: 0 losartan 50 mg Tablet 100 mg PO DAILY Qty: 30 RF: 0 carisoprodol [Soma] 350 mg Tablet 350 mg PO TID Qty: 15 RF: 0 lidocaine [Lidoderm] 5 % Adhesive Patch,Medicated 2 patch Topical DAILY Qty: 1 RF: 0 ciprofloxacin HCl 500 mg tablet 500 mg PO Q12H Qty: 10 RF: 0 carvedilol [Coreg] 6.25 mg Tablet 6.25 mg PO BID Qty: 0 RF: 0 cyanocobalamin (vitamin B-12) [Vitamin B-12] 500 mcg Tablet 1,000 mcg PO DAILY Qty: 0 RF: 0 amlodipine 10 mg Tablet 10 mg PO DAILY Qty: 0 RF: 0 folic acid 1 mg Tablet 1 mg PO DAILY Qty: 0 RF: 0 multivitamin [Multiple Vitamins] Tablet 1 tab PO DAILY Qty: 0 RF: 0 venlafaxine [Effexor XR] 37.5 mg Capsule,Extended Release 24hr 37.5 mg PO DAILY Qty: 0 RF: 0 sucralfate 1 gram Tablet 1 g PO AC & HS Qty: 0 RF: 0 cholecalciferol (vitamin D3) 1,000 unit Tablet 2,000 units PO DAILY Qty: 0 RF: 0 thiamine mononitrate (vit B1) [Vitamin B-1 (mononitrate)] 100 mg Tablet 100 mg PO QAM Qty: 0 RF: 0 oxazepam 15 mg capsule 15 mg PO TID Qty: 9 RF: 0 naloxone [Narcan] 4 mg/actuation spray,non-aerosol 1 spray EZIO ONCE PRN (Reason: opioid overdose) Qty: 2 RF: 0 Discharge Instructions Additional Instructions: Your offered help with your alcohol abuse which she declined. Please continue efforts to decrease the use of alcohol. Continue regular medications Please follow with Dr. Galindo in clinic this week for recheck. Medical Decision Making 73-year-old female brought from home by EMS after being found intoxicated and unresponsive by her housekeeper and laundry assistant. She is a chronic and receptive assist daily alcoholic who aroused after evaluation and transport by EMS. She is ambulatory , somewhat agitated but redirectable. She does not have signs of significant head injury. Her neurologic status is without focal deficits. Screening laboratories reviewed and notable for persistent hypokalemia and hypomagnesemia which was supplemented in the ED. She does have an alcohol level of 204. Patient ambulatory, conversant, clinically sober, stating she wished to be discharged home. I do feel that her chronic alcoholism will likely result in her ultimate demise and discussed this directly with her. She was seen by our dock manager as well as care management. HPI General Mode of arrival: EMS . Date/Time Provider Initiated Documentation: 07/21/18 11:17 . Limitations to Documentation: no limitations . Information obtained by: patient and EMS . History of Present Illness 73 year old F presents to the emergency department with the chief complaint of Found unresponsive and intoxicated by house keeper, described as similar to prior episodes, Patient notes no other symptoms.. Patient did receive the following treatments prior to arrival, none HPI Narrative: 73-year-old female who was found intoxicated passed out by her housekeeper and laundry assistant who called EMS and by the time of their arrival the patient arouses and is become oriented to her usual state admitting to daily use of alcohol. She denies to me any pain other than chronic right shoulder pain Related Data Home Medications Medication Instructions Recorded Confirmed fluticasone 1 spr NS daily prn #3 bottle 09/03/16 07/19/18 gabapentin 2 tab PO BID #360 cap 03/25/17 07/19/18 naltrexone 50 mg PO DAILY #30 tab-cap 11/04/17 07/19/18 pyridoxine (vitamin B6) [Vitamin 50 mg PO nightly #60 cap 11/04/17 07/19/18 B-6] venlafaxine 37.5 mg PO DAILY #90 tab-cap 11/04/17 07/19/18 ondansetron HCl 4 mg PO Q6H PRN PRN #15 tab-cap 12/21/17 07/19/18 potassium chloride 20 meq PO BID #180 tab-cap 03/30/18 07/19/18 acetaminophen [Mapap Extra 500 mg PO Q6H tab 04/17/18 07/19/18 Strength] polyethylene glycol 3350 17 gm PO DAILY PRN PRN packet 04/17/18 07/19/18 tramadol 50 mg PO Q6H PRN PRN tab 04/17/18 07/19/18 magnesium oxide 400 mg PO TID #120 tab 05/24/18 07/19/18 pantoprazole 40 mg PO BID@0730,2000 #60 tab 05/24/18 07/19/18 ranitidine HCl 150 mg PO BID #60 tab 05/24/18 07/19/18 spironolactone 50 mg PO DAILY #30 tab 05/24/18 07/19/18 venlafaxine 150 mg PO DAILY #30 cap 05/24/18 07/19/18 carisoprodol [Soma] 350 mg PO TID #15 tab 06/14/18 07/19/18 ciprofloxacin HCl 500 mg PO Q12H #10 tab 06/14/18 07/19/18 lidocaine [Lidoderm] 2 patch TOPICAL DAILY #1 pkg 06/14/18 07/19/18 losartan 100 mg PO DAILY #30 tab 06/14/18 07/19/18 amlodipine 10 mg PO DAILY #0 tab 06/28/18 07/19/18 carvedilol [Coreg] 6.25 mg PO BID #0 tab 06/28/18 07/19/18 cholecalciferol (vitamin D3) 2,000 units PO DAILY #0 tab 06/28/18 07/19/18 cyanocobalamin (vitamin B-12) 1,000 mcg PO DAILY #0 tab 06/28/18 07/19/18 [Vitamin B-12] folic acid 1 mg PO DAILY #0 tab 06/28/18 07/19/18 multivitamin [Multiple Vitamins] 1 tab PO DAILY #0 tab 06/28/18 07/19/18 naloxone [Narcan] 1 spray EZIO ONCE PRN #2 each 06/28/18 07/19/18 oxazepam 15 mg PO TID #9 cap 06/28/18 07/19/18 sucralfate 1 g PO AC & HS #0 tab 06/28/18 07/19/18 thiamine mononitrate (vit B1) 100 mg PO QAM #0 tab 06/28/18 07/19/18 [Vitamin B-1 (mononitrate)] venlafaxine [Effexor XR] 37.5 mg PO DAILY #0 cap 06/28/18 07/19/18 chlordiazepoxide HCl See Label Instructions .ROUTE 07/08/18 07/19/18 .COMPLEX #30 cap Previous Rx's Medication Instructions Recorded naltrexone 50 mg PO DAILY #30 tab-cap 11/04/17 pyridoxine (vitamin B6) [Vitamin 50 mg PO nightly #60 cap 11/04/17 B-6] venlafaxine 37.5 mg PO DAILY #90 tab-cap 11/04/17 ondansetron HCl 4 mg PO Q6H PRN PRN #15 tab-cap 12/21/17 potassium chloride 20 meq PO BID #180 tab-cap 03/30/18 acetaminophen [Mapap Extra 500 mg PO Q6H tab 04/17/18 Strength] polyethylene glycol 3350 17 gm PO DAILY PRN PRN packet 04/17/18 tramadol 50 mg PO Q6H PRN PRN tab 04/17/18 magnesium oxide 400 mg PO TID #120 tab 05/24/18 pantoprazole 40 mg PO BID@0730,2000 #60 tab 05/24/18 ranitidine HCl 150 mg PO BID #60 tab 05/24/18 spironolactone 50 mg PO DAILY #30 tab 05/24/18 venlafaxine 150 mg PO DAILY #30 cap 05/24/18 carisoprodol [Soma] 350 mg PO TID #15 tab 06/14/18 ciprofloxacin HCl 500 mg PO Q12H #10 tab 06/14/18 lidocaine [Lidoderm] 2 patch TOPICAL DAILY #1 pkg 06/14/18 losartan 100 mg PO DAILY #30 tab 06/14/18 amlodipine 10 mg PO DAILY #0 tab 06/28/18 carvedilol [Coreg] 6.25 mg PO BID #0 tab 06/28/18 cholecalciferol (vitamin D3) 2,000 units PO DAILY #0 tab 06/28/18 cyanocobalamin (vitamin B-12) 1,000 mcg PO DAILY #0 tab 06/28/18 [Vitamin B-12] folic acid 1 mg PO DAILY #0 tab 06/28/18 multivitamin [Multiple Vitamins] 1 tab PO DAILY #0 tab 06/28/18 naloxone [Narcan] 1 spray EZIO ONCE PRN #2 each 06/28/18 oxazepam 15 mg PO TID #9 cap 06/28/18 sucralfate 1 g PO AC & HS #0 tab 06/28/18 thiamine mononitrate (vit B1) 100 mg PO QAM #0 tab 06/28/18 [Vitamin B-1 (mononitrate)] venlafaxine [Effexor XR] 37.5 mg PO DAILY #0 cap 06/28/18 chlordiazepoxide HCl See Label Instructions .ROUTE 07/08/18 .COMPLEX #30 cap Allergies Allergy/AdvReac Type Severity Reaction Status Date / Time Penicillins Allergy Mild Rash Unverified 07/19/18 10:29 ramipril Allergy Unknown ITCHING Unverified 07/19/18 10:29 meperidine [From Demerol] AdvReac Severe Nausea Unverified 07/19/18 10:29 bupropion AdvReac Mild GI upset Unverified 07/19/18 10:29 AMBER Inhibitors AdvReac Unknown COUGH Unverified 07/19/18 10:29 alendronate sodium AdvReac Unknown GI Distress Unverified 07/19/18 10:29 clarithromycin AdvReac Unknown intolerant Unverified 07/19/18 10:29 paroxetine AdvReac Unknown Diarrhea Unverified 07/19/18 10:29 General JORDAN: 3 Review of Systems Review of Systems 6 systems reviewed and otherwise neg PFSH Family History Mother No problems noted. Father No problems noted. Sister Personal history of malignant neoplasm Sister No problems noted. Grandfather Personal history of malignant neoplasm Grandfather Personal history of malignant neoplasm Grandmother Heart disease Acute ill-defined cerebrovascular disease Grandmother Personal history of malignant neoplasm Aunt Heart disease Aunt Heart disease Brother No problems noted. Medical History Chronic alcoholic gastritis (Chronic 10/12/17) Urinary incontinence (Chronic) Tubular adenoma of colon (Chronic 01/28/17) Sciatica (Chronic) 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) Osteopenia (Chronic) Osteoarthritis (Chronic 03/29/14) Non-cardiac chest pain (Chronic 09/21/16) Macrocytosis (Chronic 09/26/14) Hyperlipidemia (Chronic 02/23/13) Genital herpes simplex (Chronic) GI bleed (Chronic 12/20/16) Elev transaminase/LDH (Chronic) Cervical radicular pain (Chronic) Cataract (Chronic 11/07/15) Anemia (Chronic 12/20/16) Allergic rhinitis (Chronic) Alcohol abuse (Chronic) Alcoholic ketosis (Resolved) Alcohol abuse (Chronic) Hypertension (Acute) Hyperlipidemia (Chronic) Back pain, chronic (Chronic) Depression (Chronic) Osteoarthritis (Chronic) Osteopenia (Chronic) Urinary incontinence (Chronic) 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 Pleasant, poorly groomed, interactive. HEAD: Normocephalic, atraumatic ENT: Mucous membranes moist, oropharynx unremarkable, External ear exam unremarkable EYES: PERRL, EOMI NECK: Full ROM, no CANDY, no menigismus CHEST/RESP: Nontender, clear to auscultation bilateral, no wheeze/rhonchi/rales CARDIOVASCULAR: RRR, no murmur, rub shirin. 2+ Rad pulse bilateral ABDOMEN: Soft, nontender, no mass. +Bowel sounds Back: Nontender no step-off or deformity EXT: Full ROM, no edema, no rash Neuro: Grossly normal neurologic exam, conversant, interactive. She is ambulatory. Psych: Speech fluent, thoughts congruent, affect agitated, states I want to go home
[2018-07-21 11:45] LABS: Abs Immature Grans 0.01 k/cumm (0.0-0.09); Absolute Basophil Count 0.01 k/cumm (0.0-0.2); Absolute Eosinophil Count 0.15 k/cumm (0.0-0.7); Absolute Lymphocyte Count 1.82 k/cumm (1.2-3.4); Absolute Monocyte Count 0.22 k/cumm (0.11-0.7); Basophils % 0.2; Eosinophils % 3.7; HCT 36.3 % (36.0-46.0); HGB 11.2 g/dL (12.0-15.5); Immature Grans % 0.2; Lymphocytes % 45.4; Mean Corp. HGB Concentration 30.9 g/dL (32.0-36.0); Mean Corpuscular Hemoglobin 30.6 pg (27.0-33.0); Mean Corpuscular Volume 99.2 fL (80-95); Mean Platelet Volume 8.8 fL (8.0-11.0); Monocytes % 5.5; Platelet Count 302 x1000/uL (130-400); RBC 3.66 m/cumm (4.00-5.20); RBC Distribution Width 16.6 % (11.7-14.6); White Blood Cell Count 4.01 k/cumm (4.4-10.8)
[2018-07-21 12:00] LABS: ALT 34 U/L (12-78); AST 39 U/L (15-37); Albumin 3.6 g/dL (3.4-5.0); Alkaline Phosphatase 93 U/L (46-116); Anion Gap 12.5 mmol/L (3-11); BUN 9 mg/dL (7-18); Bilirubin, Total 0.6 mg/dL (0.2-1.0); CO2 26.5 mmol/L (21.0-32.0); CREATININE 0.93 mg/dL (0.55-1.02); Calcium 9.7 mg/dL (8.5-10.1); Chloride 105 mmol/L (98-107); ETHANOL BLOOD 204.2 mg/dL (<3); Estimated GFR 59.26 (mL/min/1.73m2); Glucose 159 mg/dL (70-100); Magnesium 1.3 mg/dL (1.8-2.4); Sodium 144 mmol/L (136-145); Total Protein 7.1 g/dL (6.4-8.2)
--- NOTE | 2018-07-21 12:01 | NUR.NOTE ---
Pt. has sitter for safety.
[2018-07-21] MEDS: Magnesium Oxide 400 MG TAB 800 MG PO (13:03)
== END 2018-07-21 13:27 | disposition home or self-care (01) ==
PROVIDERS: Emergency Provider Emergency Medicine; PCP Family Medicine
DX: F10.129 Alcohol abuse with intoxication, unspecified (principal); Y90.7 Blood alcohol level of 200-239 mg/100 ml; E87.6 Hypokalemia; E83.42 Hypomagnesemia; I10 Essential (primary) hypertension
CPT/HCPCS: 36415; 80053; 99284; 80320; 83735; 85025

== ENCOUNTER 2018-07-24 15:02 | Emergency (ER) | payer OTHER, SELFPAY ==
[2018-07-24] MEDS: Haloperidol 5 MG/ML VIAL 4 MG IM (15:14)
--- NOTE | 2018-07-24 15:15 | W.ED.GENAD ---
Discharge Plan Disposition Patient Disposition: HOME Condition: Fair Discharge Details Chief Complaint: PsychEval Clinical Impression: Alcohol abuse, Urinary tract infection Reason For Visit: LUÍS Primary Care Provider: Lavelle Galindo ED Provider: Moose Lafleur Home Meds and New Rx's Prescriptions: New cephalexin 500 mg capsule 500 mg PO TID 7 Days Qty: 21 RF: 0 Continue fluticasone 16 GM spray,suspension 1 spr NS daily prn Qty: 3 RF: 3 gabapentin 100 MG capsule 2 tab PO BID Qty: 360 RF: 3 venlafaxine 37.5 MG tablet 37.5 mg PO DAILY Qty: 90 RF: 3 naltrexone 50 MG tablet 50 mg PO DAILY Qty: 30 RF: 2 pyridoxine (vitamin B6) [Vitamin B-6] 50 MG tablet 50 mg PO nightly Qty: 60 RF: 4 potassium chloride 20 MEQ tablet extended release 20 meq PO BID Qty: 180 RF: 3 polyethylene glycol 3350 17 GM powder in packet 17 gm PO DAILY PRN PRN (Reason: Constipation) RF: 0 tramadol 50 MG tablet 50 mg PO Q6H PRN PRNRF: 0 acetaminophen [Mapap Extra Strength] 500 MG tablet 500 mg PO Q6H RF: 0 venlafaxine 150 mg Capsule,Extended Release 24hr 150 mg PO DAILY Qty: 30 RF: 0 spironolactone 25 mg Tablet 50 mg PO DAILY Qty: 30 RF: 0 magnesium oxide 400 mg (241.3 mg magnesium) Tablet 400 mg PO TID Qty: 120 RF: 0 pantoprazole 40 mg Tablet,Delayed Release (Dr/Ec) 40 mg PO BID@0730,2000 Qty: 60 RF: 0 ranitidine HCl 150 mg Tablet 150 mg PO BID Qty: 60 RF: 0 chlordiazepoxide HCl 25 mg capsule See Label Instructions .ROUTE .COMPLEX Qty: 30 RF: 0 ondansetron HCl 4 MG tablet 4 mg PO Q6H PRN PRNQty: 15 RF: 0 losartan 50 mg Tablet 100 mg PO DAILY Qty: 30 RF: 0 carisoprodol [Soma] 350 mg Tablet 350 mg PO TID Qty: 15 RF: 0 lidocaine [Lidoderm] 5 % Adhesive Patch,Medicated 2 patch Topical DAILY Qty: 1 RF: 0 ciprofloxacin HCl 500 mg tablet 500 mg PO Q12H Qty: 10 RF: 0 carvedilol [Coreg] 6.25 mg Tablet 6.25 mg PO BID Qty: 0 RF: 0 cyanocobalamin (vitamin B-12) [Vitamin B-12] 500 mcg Tablet 1,000 mcg PO DAILY Qty: 0 RF: 0 amlodipine 10 mg Tablet 10 mg PO DAILY Qty: 0 RF: 0 folic acid 1 mg Tablet 1 mg PO DAILY Qty: 0 RF: 0 multivitamin [Multiple Vitamins] Tablet 1 tab PO DAILY Qty: 0 RF: 0 venlafaxine [Effexor XR] 37.5 mg Capsule,Extended Release 24hr 37.5 mg PO DAILY Qty: 0 RF: 0 sucralfate 1 gram Tablet 1 g PO AC & HS Qty: 0 RF: 0 cholecalciferol (vitamin D3) 1,000 unit Tablet 2,000 units PO DAILY Qty: 0 RF: 0 thiamine mononitrate (vit B1) [Vitamin B-1 (mononitrate)] 100 mg Tablet 100 mg PO QAM Qty: 0 RF: 0 oxazepam 15 mg capsule 15 mg PO TID Qty: 9 RF: 0 naloxone [Narcan] 4 mg/actuation spray,non-aerosol 1 spray EZIO ONCE PRN (Reason: opioid overdose) Qty: 2 RF: 0 Discharge Instructions Instructions: Urinary Tract Infection in Women (ED), Abuse of Alcohol (ED) Additional Instructions: Take antibiotics as prescribed. You were offered admission and referrals for mental health care which you declined after interview with myself and subsequently the on-call [facility] human services provider. Near regular medications. Return at any time for re-evaluation Medical Decision Making 73yof presents from home via EMS after found intoxicated and with suicidal ideation at home after voicing wishes to harm herself to a home care provider. She has chronically poor self-care and alcoholism. Vital signs stable with mild tachycardia with agitation. Patient agitated and combative with staff and unable to safely obtain medical workup. Patient given IM Haldol & Ativan with Benadryl, IV placed, labs obtained, patient given fluid and MVM. Laboratories are reassuring although she has chronic anemia and leukopenia. She has chronic hypokalemia and this was supplemented in the emergency department again today Patient was able to sleep quietly, did not require physical restraints, was observed in the emergency department. She was watched by a patient care safety observer. Repeat alcohol level at approximately 4 hours of care decreased to 73. Patient does have positive leuk esterase and many bacteria on her urinalysis, culture is pending, may represent underlying urinary tract infection versus contaminated sample. Treatment initiated with Keflex Patient medically stable for interview with mental health. She was seen by [facility] provider Rosina, patient has no further complaints of suicidality, she has agreed to a outpatient plan of care. She was offered admission or further resources for mental health disease which she declined. Lab Data Lab results reviewed: Yes I reviewed the patient's lab results. Laboratory Results - last 24 hr 07/24/18 07/24/18 16:25 16:25 WBC 2.84 L RBC 2.98 L Hgb 9.2 L Hct 29.5 L MCV 99.0 H MCH 30.9 MCHC 31.2 L RDW 16.0 H Plt Count 242 MPV 8.9 Immature Gran % 0.0 Neutrophils % 44.6 Lymphocytes % 42.6 Monocytes % 8.5 Eosinophils % 3.9 Basophils % 0.4 Absolute Neutrophils 1.27 Absolute Lymphocytes 1.21 Absolute Monocytes 0.24 Absolute Eosinophils 0.11 Absolute Basophils 0.01 Differential Comment Agrees w/ instrument RBC Morphology See below Basophilic Stippling Present Macrocytosis 1+ Sodium 144 Potassium 3.2 L Chloride 107 Carbon Dioxide 25.6 Anion Gap 11.4 H BUN 14 Creatinine 0.84 Estimated GFR/1.73 m2 >= 60.00 Glucose 99 Calcium 9.2 Total Bilirubin 0.5 AST 39 H ALT 32 Alkaline Phosphatase 89 Total Protein 6.0 L Albumin 3.0 L TSH 0.07 L Ethyl Alcohol 165.0 ECG Data Attestation: I personally reviewed and interpreted this ECG (s) as follows: Interpretation: Normal sinus rhythm, tachycardic, no ST segment elevations, intervals are unremarkable HPI General Mode of arrival: EMS. Date/Time Provider Initiated Documentation: 07/24/18 15:11. Limitations to Documentation: altered mental status. Information obtained by: EMS. History of Present Illness 73 year old F presents to the emergency department with the chief complaint of 73yof alcoholic brought by EMS after home care provider fnd intoxicated, described as moderate, Patient did receive the following treatments prior to arrival, other (unable to assess given patient intoxication) Related Data Home Medications Medication Instructions Recorded Confirmed fluticasone 1 spr NS daily prn #3 bottle 09/03/16 07/19/18 gabapentin 2 tab PO BID #360 cap 03/25/17 07/19/18 naltrexone 50 mg PO DAILY #30 tab-cap 11/04/17 07/19/18 pyridoxine (vitamin B6) [Vitamin 50 mg PO nightly #60 cap 11/04/17 07/19/18 B-6] venlafaxine 37.5 mg PO DAILY #90 tab-cap 11/04/17 07/19/18 ondansetron HCl 4 mg PO Q6H PRN PRN #15 tab-cap 12/21/17 07/19/18 potassium chloride 20 meq PO BID #180 tab-cap 03/30/18 07/19/18 acetaminophen [Mapap Extra 500 mg PO Q6H tab 04/17/18 07/19/18 Strength] polyethylene glycol 3350 17 gm PO DAILY PRN PRN packet 04/17/18 07/19/18 tramadol 50 mg PO Q6H PRN PRN tab 04/17/18 07/19/18 magnesium oxide 400 mg PO TID #120 tab 05/24/18 07/19/18 pantoprazole 40 mg PO BID@0730,2000 #60 tab 05/24/18 07/19/18 ranitidine HCl 150 mg PO BID #60 tab 05/24/18 07/19/18 spironolactone 50 mg PO DAILY #30 tab 05/24/18 07/19/18 venlafaxine 150 mg PO DAILY #30 cap 05/24/18 07/19/18 carisoprodol [Soma] 350 mg PO TID #15 tab 06/14/18 07/19/18 ciprofloxacin HCl 500 mg PO Q12H #10 tab 06/14/18 07/19/18 lidocaine [Lidoderm] 2 patch TOPICAL DAILY #1 pkg 06/14/18 07/19/18 losartan 100 mg PO DAILY #30 tab 06/14/18 07/19/18 amlodipine 10 mg PO DAILY #0 tab 06/28/18 07/19/18 carvedilol [Coreg] 6.25 mg PO BID #0 tab 06/28/18 07/19/18 cholecalciferol (vitamin D3) 2,000 units PO DAILY #0 tab 06/28/18 07/19/18 cyanocobalamin (vitamin B-12) 1,000 mcg PO DAILY #0 tab 06/28/18 07/19/18 [Vitamin B-12] folic acid 1 mg PO DAILY #0 tab 06/28/18 07/19/18 multivitamin [Multiple Vitamins] 1 tab PO DAILY #0 tab 06/28/18 07/19/18 naloxone [Narcan] 1 spray EZIO ONCE PRN #2 each 06/28/18 07/19/18 oxazepam 15 mg PO TID #9 cap 06/28/18 07/19/18 sucralfate 1 g PO AC & HS #0 tab 06/28/18 07/19/18 thiamine mononitrate (vit B1) 100 mg PO QAM #0 tab 06/28/18 07/19/18 [Vitamin B-1 (mononitrate)] venlafaxine [Effexor XR] 37.5 mg PO DAILY #0 cap 06/28/18 07/19/18 chlordiazepoxide HCl See Label Instructions .ROUTE 07/08/18 07/19/18 .COMPLEX #30 cap cephalexin 500 mg PO TID 7 Days #21 cap 07/24/18 Previous Rx's Medication Instructions Recorded naltrexone 50 mg PO DAILY #30 tab-cap 11/04/17 pyridoxine (vitamin B6) [Vitamin 50 mg PO nightly #60 cap 11/04/17 B-6] venlafaxine 37.5 mg PO DAILY #90 tab-cap 11/04/17 ondansetron HCl 4 mg PO Q6H PRN PRN #15 tab-cap 12/21/17 potassium chloride 20 meq PO BID #180 tab-cap 03/30/18 acetaminophen [Mapap Extra 500 mg PO Q6H tab 04/17/18 Strength] polyethylene glycol 3350 17 gm PO DAILY PRN PRN packet 04/17/18 tramadol 50 mg PO Q6H PRN PRN tab 04/17/18 magnesium oxide 400 mg PO TID #120 tab 05/24/18 pantoprazole 40 mg PO BID@0730,2000 #60 tab 05/24/18 ranitidine HCl 150 mg PO BID #60 tab 05/24/18 spironolactone 50 mg PO DAILY #30 tab 05/24/18 venlafaxine 150 mg PO DAILY #30 cap 05/24/18 carisoprodol [Soma] 350 mg PO TID #15 tab 06/14/18 ciprofloxacin HCl 500 mg PO Q12H #10 tab 06/14/18 lidocaine [Lidoderm] 2 patch TOPICAL DAILY #1 pkg 06/14/18 losartan 100 mg PO DAILY #30 tab 06/14/18 amlodipine 10 mg PO DAILY #0 tab 06/28/18 carvedilol [Coreg] 6.25 mg PO BID #0 tab 06/28/18 cholecalciferol (vitamin D3) 2,000 units PO DAILY #0 tab 06/28/18 cyanocobalamin (vitamin B-12) 1,000 mcg PO DAILY #0 tab 06/28/18 [Vitamin B-12] folic acid 1 mg PO DAILY #0 tab 06/28/18 multivitamin [Multiple Vitamins] 1 tab PO DAILY #0 tab 06/28/18 naloxone [Narcan] 1 spray EZIO ONCE PRN #2 each 06/28/18 oxazepam 15 mg PO TID #9 cap 06/28/18 sucralfate 1 g PO AC & HS #0 tab 06/28/18 thiamine mononitrate (vit B1) 100 mg PO QAM #0 tab 06/28/18 [Vitamin B-1 (mononitrate)] venlafaxine [Effexor XR] 37.5 mg PO DAILY #0 cap 06/28/18 chlordiazepoxide HCl See Label Instructions .ROUTE 07/08/18 .COMPLEX #30 cap cephalexin 500 mg PO TID 7 Days #21 cap 07/24/18 Allergies Allergy/AdvReac Type Severity Reaction Status Date / Time Penicillins Allergy Mild Rash Unverified 07/19/18 10:29 ramipril Allergy Unknown ITCHING Unverified 07/19/18 10:29 meperidine [From Demerol] AdvReac Severe Nausea Unverified 07/19/18 10:29 bupropion AdvReac Mild GI upset Unverified 07/19/18 10:29 AMBER Inhibitors AdvReac Unknown COUGH Unverified 07/19/18 10:29 alendronate sodium AdvReac Unknown GI Distress Unverified 07/19/18 10:29 clarithromycin AdvReac Unknown intolerant Unverified 07/19/18 10:29 paroxetine AdvReac Unknown Diarrhea Unverified 07/19/18 10:29 General JORDAN: 3 Review of Systems Review of Systems Unobtainable due to mental status Exam Narrative Exam Narrative: GEN: awake, slurred speech, interactive, yelling at staff F. HEAD: Normocephalic, atraumatic ENT: Mucous membranes dry, oropharynx unremarkable, External ear exam unremarkable EYES: PERRL, EOMI NECK: Full ROM, no CANDY, no menigismus CHEST/RESP: Nontender, clear to auscultation bilateral, no wheeze/rhonchi/rales CARDIOVASCULAR: RRR, no murmur, rub shirin. 2+ Rad pulse bilateral ABDOMEN: Soft, nontender, no mass. +Bowel sounds EXT: Full ROM, no edema, no rash Neuro: Grossly normal neurologic exam, conversant, interactive. Psych: Speech fluent, thoughts congruent, affect agitated
[2018-07-24] MEDS: diphenhydrAMINE 50 MG/ML VIAL 25 MG IM (15:18)
[2018-07-24] MEDS: LORazepam 2 MG/ML VIAL IM (15:53)
--- NOTE | 2018-07-24 16:10 | NUR.NOTE ---
Nursing Note: U/A, patient agitated, talking about wanting to be with her dogs, which are from bladder cancer. Patient also continuously dry heaving and stating, He told me I couldn't throw up! He's going to be so mad at me! Patient was trying to leave. Attempted verbal deescalation, patient stated that she intended to leave. VO for 5mg haldol and 25mg benadryl IM. Administered. Patient continued to state No one cares. I just want to be with my dogs and attempted to leave multiple times. Assisted back into bed by nursing, continued to try to leave. VO for IM ativan 2 mg. Administered. Patient no longer dry heaving, resting calmly in bed with eyes closed. [facility] arrived.
[2018-07-24] MEDS: Normal Saline 1,000 ML 150 ML IV (16:25)
[2018-07-24 16:37] LABS: Absolute Basophil Count 0.01 k/cumm (0.0-0.2); Absolute Eosinophil Count 0.11 k/cumm (0.0-0.7); Absolute Lymphocyte Count 1.21 k/cumm (1.2-3.4); Absolute Monocyte Count 0.24 k/cumm (0.11-0.7); Absolute Neutrophil Count 1.27 k/cumm (1.2-6.7); Basophils % 0.4; Eosinophils % 3.9; HCT 29.5 % (36.0-46.0); HGB 9.2 g/dL (12.0-15.5); Lymphocytes % 42.6; Mean Corp. HGB Concentration 31.2 g/dL (32.0-36.0); Mean Corpuscular Hemoglobin 30.9 pg (27.0-33.0); Mean Platelet Volume 8.9 fL (8.0-11.0); Monocytes % 8.5; Neutrophils % 44.6; Platelet Count 242 x1000/uL (130-400); RBC 2.98 m/cumm (4.00-5.20); White Blood Cell Count 2.84 k/cumm (4.4-10.8)
[2018-07-24 16:42] VITALS: BP 145/88; TEMP 37
[2018-07-24 16:57] LABS: Diff Comment Agrees w/ Instrument; Macrocytosis 1+
[2018-07-24 16:58] LABS: Basophilic Stippling Present
[2018-07-24 17:01] VITALS: BP 138/83; PULSE 102; RESP 16; O2SAT 93
[2018-07-24 17:02] LABS: ALT 32 U/L (12-78); AST 39 U/L (15-37); Alkaline Phosphatase 89 U/L (46-116); Anion Gap 11.4 mmol/L (3-11); BUN 14 mg/dL (7-18); Bilirubin, Total 0.5 mg/dL (0.2-1.0); CO2 25.6 mmol/L (21.0-32.0); CREATININE 0.84 mg/dL (0.55-1.02); Calcium 9.2 mg/dL (8.5-10.1); Chloride 107 mmol/L (98-107); Glucose 99 mg/dL (70-100); Potassium 3.2 mmol/L (3.5-5.1); Sodium 144 mmol/L (136-145); TSH 0.07 uIU/mL (0.358-3.74)
[2018-07-24 17:15] LABS: Salicylate < 2.8 mg/dL (2.8-20.0)
--- NOTE | 2018-07-24 17:15 | NUR.NOTE ---
Nursing Note: 1625---sleepy/more cooperative -able to start IV and draw blood for lab
[2018-07-24 17:17] LABS: Acetaminophen < 2 ug/mL (10-30)
[2018-07-24] MEDS: MAGNESIUM SULFATE 8.12 MEQ, MULTIVITAMIN 10 ML, THIAMINE 100 MG, FOLIC ACID 1 MG in Nor... 168.867 MG IV (17:50)
--- NOTE | 2018-07-24 17:55 | NUR.NOTE ---
Nursing Note: 1755--sleeping--arousable to voice/touch
[2018-07-24 18:01] VITALS: BP 162/88; PULSE 103; RESP 18; TEMP 37.1; O2SAT 92
--- NOTE | 2018-07-24 18:06 | NUR.NOTE ---
Nursing Note: Laying on side sleeping-arousable to voice/touch--jumps and states Go away--unable to do EKG in this position. Dr Lafleur notified--states not needed now--obtain when more awake/cooperative.
[2018-07-24 19:09] VITALS: BP 136/82; PULSE 101; RESP 16; TEMP 36.4; O2SAT 93
[2018-07-24 20:17] VITALS: BP 159/99; PULSE 104; RESP 14; TEMP 36.6; O2SAT 94
[2018-07-24 20:40] LABS: ETHANOL BLOOD 73.8 mg/dL (<3)
[2018-07-24 21:26] LABS: Bilirubin Negative (Negative); Blood Negative (Negative); Clarity Cloudy; Glucose Negative (Negative); Ketones Negative (Negative); Leukocyte Esterase Trace (Negative); Nitrite Negative (Negative); Urobilinogen 0.2 EU/dL (Up TO 0.2); pH 7.5 (5-8)
[2018-07-24] MEDS: LORazepam 2 MG/ML VIAL 0.5 MG IVP (21:31)
[2018-07-24 21:40] LABS: *AMPHETAMINES SCREEN URINE Negative (Negative); *BARBITURATES SCREEN URINE Negative (Negative); *BENZODIAZEPINES SCREEN URINE POSITIVE (Negative); Cannabinoids THC Negative (Negative); Cocaine Screen,Urine Negative (Negative); METHADONE URINE SCREEN Negative (Negative); OPIATES URINE SCREEN Negative (Negative)
[2018-07-24 21:43] LABS: Bacteria Many HPF (Negative); C & S Indicated? Yes; Casts Negative LPF (Negative); Crystals Many Amorphous HPF (Negative); Epithelial Cells Negative HPF (Negative); Mucus Negative (Negative); Other Cells Negative (Negative); RBC Negative (0-2)
[2018-07-24 21:44] LABS: Tricyclic Antidepressants Negative (Negative)
[2018-07-24] MEDS: Potassium Chloride 20 MEQ TABCR PO (22:30)
[2018-07-24] MEDS: Cephalexin 500 MG CAP 1000 MG PO (22:30)
--- NOTE | 2018-07-24 22:51 | PDOC.MHCN ---
Date of service: 06/30/18 Time of Service: 22:53 Mental Health Crisis Note Presenting Issue How did you arrive at the ED and why did you come: Pt arrived this afternoon by ambulance after a wellness check. She was intoxicated. Precipitating Factors Initially pt stated she wanted to she had a gun. On assessment after medically cleared this clinician was told I just want to go home and feed my pets. I am fine. She is cooperative to a point but does not want to sign up for [facility] and says she just wants to be alone. She has followup planned by [facility] ostomy care nurse and her chronic ostomy care nurse. she is unclean, smells of alcohol and urine/animals. She speaks clearly and her thoughts are organized. This is her fourth visit here this week. She does not show signs of psychosis or delusional thinking. Disposition BEHAVIOR: Her bahavior is cooperative and indifferent. EYE CONTACT: She mjakes eye contact occasionally. MOOD: Her mood is dysphoric and depressed. she is irritable. AFFECT: Her affect is blunted. APPETITE: She appears to be eating, has meals on wheels. SLEEP(trouble falling/staying asleep: No problem Plan Discussed case with Dr. Lafelur and Mignon Arteaga. The patient wants to go home and wants to be left alond. She has follow up with chronic disabilities caregiver and was told by this clinician that [facility] would followup. Although she did not want our services and would not sign paperwork. She stated she would tomorrow Signature Clinician's Name/Title: Rosina Larsen, [facility], [facility] Emergency Services Clinician
[2018-07-24 23:34] VITALS: BP 159/99; PULSE 104; RESP 14; TEMP 36.6; O2SAT 94
--- NOTE | 2018-07-24 23:36 | PDOC.MHCN_ITS ---
Date of service: 06/30/18 Time of Service: 22:53 Mental Health Crisis Note Presenting Issue How did you arrive at the ED and why did you come: Pt arrived this afternoon by ambulance after a wellness check. She was intoxicated. Precipitating Factors Initially pt stated she wanted to she had a gun. On assessment after medically cleared this clinician was told I just want to go home and feed my pets. I am fine. She is cooperative to a point but does not want to sign up for [facility] and says she just wants to be alone. She has followup planned by [facility] eye care professional and her chronic eye care professional. she is unclean, smells of alcohol and urine/animals. She speaks clearly and her thoughts are organized. This is her fourth visit here this week. She does not show signs of psychosis or delusional thinking. Disposition BEHAVIOR: Her bahavior is cooperative and indifferent. EYE CONTACT: She mjakes eye contact occasionally. MOOD: Her mood is dysphoric and depressed. she is irritable. AFFECT: Her affect is blunted. APPETITE: She appears to be eating, has meals on wheels. SLEEP(trouble falling/staying asleep: No problem Plan Discussed case with Dr. Lafleur and Mignon Arteaga. The patient wants to go home and wants to be left alond. She has follow up with chronic career development consultant and was told by this clinician that [facility] would followup. Although she did not want our services and would not sign paperwork. She stated she would tomorrow Verdana 4d Signature Clinician's Name/Title: Rosina Larsen, [facility], [facility] Emergency Services Clinician
== END 2018-07-24 23:24 | disposition home or self-care (01) ==
PROVIDERS: Emergency Provider Emergency Medicine; PCP Family Medicine
DX: F10.129 Alcohol abuse with intoxication, unspecified (principal); Y90.6 Blood alcohol level of 120-199 mg/100 ml; N39.0 Urinary tract infection, site not specified; R45.851 Suicidal ideations; I10 Essential (primary) hypertension
CPT/HCPCS: 36415; 80053; 80307; 93005; 96361; 96365; 96366; 96372; 96375; 99285; 80320; 80329; 81003; 81015; 84443; 85025; 87086; 93010; 99284; J1200; J1630; J2060

== ENCOUNTER 2018-07-31 11:00 | Outpatient (CLI) | payer OTHER, SELFPAY ==
--- NOTE | 2018-07-31 10:58 | DI.RAD_ITS ---
SYMPTOM/DIAGNOSIS: LT SHOULDER PAIN, S/P PROXIMAL HUMERAL FX LEFT SHOULDER: Three views. Comparison is made with 04/24/18. The proximal left humeral fracture appears to be well healed. No new fracture or dislocation is identified. Post surgical changes are seen at the distal clavicle. The soft tissues are unremarkable. IMPRESSION: Healed proximal left humeral fracture.
== END 2018-07-31 11:20 ==
PROVIDERS: PCP Family Medicine; Referring Provider Family Medicine; Visit Provider Student in an Organized Health Care Education/Training Program
DX: M25.512 Pain in left shoulder (principal); M75.82 Other shoulder lesions, left shoulder; S42.255D Nondisplaced fracture of greater tuberosity of left humerus, subsequent encounter for fracture with routine healing
CPT/HCPCS: 99213; 73030

== ENCOUNTER 2018-08-11 14:27 | Emergency (ER) | payer OTHER, SELFPAY ==
[2018-08-11] VITALS (7 sets, daily range): BP systolic 155–197; BP diastolic 66–132; PULSE 95–125; RESP 16–29; TEMP 37.1–38; O2SAT 96–98
--- NOTE | 2018-08-11 14:29 | DI.RAD_ITS ---
SYMPTOM/DIAGNOSIS: SOB AP AND LATERAL CHEST: Comparison is made with 03/16/18. The heart is enlarged and the aorta is tortuous, unchanged. There are old bilateral rib fractures and an old distal clavicle fracture which is non united. No infiltrate, effusion or pneumothorax is seen. IMPRESSION: No acute abnormality.
--- NOTE | 2018-08-11 14:35 | W.ED.GENAD ---
Discharge Plan Disposition Patient Disposition: AGAINST MEDICAL ADVICE Condition: Stable Discharge Details Chief Complaint: RespSymp Clinical Impression: Alcohol abuse, Hypokalemia, Hypomagnesemia, Alcohol withdrawal, Hypertension Reason For Visit: LUÍS Primary Care Provider: Lavelle Galindo ED Provider: Brian Rosales Home Meds and New Rx's Prescriptions: Continued fluticasone 16 GM spray,suspension 1 spr NS daily prn Qty: 3 RF: 3 gabapentin 100 MG capsule 2 tab PO BID Qty: 56 RF: 3 venlafaxine 37.5 MG tablet 37.5 mg PO DAILY Qty: 90 RF: 3 naltrexone 50 MG tablet 50 mg PO DAILY Qty: 30 RF: 2 pyridoxine (vitamin B6) [Vitamin B-6] 50 MG tablet 50 mg PO nightly Qty: 60 RF: 4 polyethylene glycol 3350 17 GM powder in packet 17 gm PO DAILY PRN PRN (Reason: Constipation) RF: 0 tramadol 50 MG tablet 50 mg PO Q6H PRN PRNRF: 0 venlafaxine 150 mg Capsule,Extended Release 24hr 150 mg PO DAILY Qty: 30 RF: 0 pantoprazole 40 mg Tablet,Delayed Release (Dr/Ec) 40 mg PO BID@0730,2000 Qty: 60 RF: 0 ranitidine HCl 150 mg Tablet 150 mg PO BID Qty: 60 RF: 0 chlordiazepoxide HCl 25 mg capsule See Rx Instructions .ROUTE .COMPLEX Qty: 30 RF: 0 losartan 50 mg Tablet 100 mg PO DAILY Qty: 14 RF: 0 carvedilol [Coreg] 6.25 mg Tablet 6.25 mg PO BID Qty: 28 RF: 0 spironolactone 25 mg Tablet 50 mg PO DAILY Qty: 14 RF: 0 magnesium oxide 400 mg (241.3 mg magnesium) Tablet 400 mg PO TID Qty: 14 RF: 0 cyanocobalamin (vitamin B-12) [Vitamin B-12] 500 mcg Tablet 1,000 mcg PO DAILY Qty: 14 RF: 0 amlodipine 10 mg Tablet 10 mg PO DAILY Qty: 14 RF: 0 folic acid 1 mg Tablet 1 mg PO DAILY Qty: 14 RF: 0 cholecalciferol (vitamin D3) 1,000 unit Tablet 2,000 units PO DAILY Qty: 14 RF: 0 thiamine mononitrate (vit B1) [Vitamin B-1 (mononitrate)] 100 mg Tablet 100 mg PO QAM Qty: 14 RF: 0 potassium chloride 20 MEQ tablet extended release 20 meq PO BID Qty: 14 RF: 3 ondansetron HCl 4 MG tablet 4 mg PO Q6H PRN PRNQty: 15 RF: 0 carisoprodol [Soma] 350 mg Tablet 350 mg PO TID Qty: 15 RF: 0 lidocaine [Lidoderm] 5 % Adhesive Patch,Medicated 2 patch Topical DAILY Qty: 1 RF: 0 multivitamin [Multiple Vitamins] Tablet 1 tab PO DAILY Qty: 0 RF: 0 venlafaxine [Effexor XR] 37.5 mg Capsule,Extended Release 24hr 37.5 mg PO DAILY Qty: 0 RF: 0 sucralfate 1 gram Tablet 1 g PO AC & HS Qty: 0 RF: 0 oxazepam 15 mg capsule 15 mg PO TID Qty: 9 RF: 0 Narcan 4 mg/actuation spray,non-aerosol 1 spray EZIO ONCE PRN (Reason: opioid overdose) Qty: 2 RF: 0 Discontinued ciprofloxacin HCl 500 mg tablet 500 mg PO Q12H Qty: 10 RF: 0 No Action acetaminophen [Mapap Extra Strength] 500 MG tablet 500 mg PO Q6H RF: 0 Discharge Instructions Instructions: Hypokalemia (ED), Abuse of Alcohol (ED), Hypertension (ED), Hypomagnesemia (ED) Additional Instructions: Feel free to return immediately for any new or significant worsening of symptoms, seizure activity, or further concerns she may have. Otherwise you should follow-up with your primary care provider for refill of your medications and please continue your medications tomorrow morning. You should utilize [facility] services to get to the pharmacy to fill your medications Referrals: Lavelle Galindo [Primary Care Provider] - 1 week Discharge Data Discharge Date/Time-TO BE ENTERED AT DEPARTURE: 08/11/18 19:00 Medical Decision Making <CELINA Villarreal - Last Filed: 08/13/18 08:14> Balwinder presents, brought in via EMS, with c/c of SOB. States that this started today, patient is a poor historian and is inconsistent in her information. EMS report that upon arrival, O2 98% on RA but that she was notably wheezy. They administered duoneb. Patient is unsure if this offered any symptomatic management. Denies recent illness, no cough/cold/fevers/chills. She does endorse nausea/vomiting that also began today. No recent travel. Denies recent abx. No change in urinary habits or dysurea. Patient typically drinks ETOH daily, states she has had none today. Smells of ETOH. History of chronic alcoholic gastritis, urinary incontinence, tubular adenoma of colon, sciatica, osteopenia, macrocytosis, hyperlipidemia, GI bleed, AMBER, alcohol abuse, hypoxia, alcoholic ketosis, HTN, depression, wernicke encephalopathy, GERD, hypokalemia, hypomagnesemia. On exam, patient is speaking in full sentences but appears very anxious. She is tachypnic. Lungs are clear, no respiratory distress. With coaching the patient, she is able to slow her breathing and feel improved. BP elevated at 180/132, P 124. Afebrile. Had also endorses N/V, no abdominal discomfort on exam. Denies nausea currently. No CP, no cardiac history. Unclear when patient last had alcohol. Her demenor and shakiness appear anxiety driven, may be linked to withdrawal, will keep patient on monitor and obtain labs. She does smell of alcohol. Patient has not been taking her medications for the past week, reports that she has a DUI and is unable to drive to pharmacy to pick these up. Will ask health care consultant to help with this. Patiet is tachycardic and hypertensive. Will give her her typical daily antihypertensives. Spoke with health care consultant who advises that patient is already established with RCT. CXR reviewed by radiologist with no acute abnormality noted. At the end of my shift, patient is just back from XR, labs are coming in. Appear significant for low magnesium and potassium. Care was transitioned to Nestor Rosales NP who will order these to be replenished and will continue to monitor HR and BP as well as withdrawal symptoms. HPI <CELINA Villarreal - Last Filed: 08/13/18 08:14> General Mode of arrival: EMS. Date/Time Provider Initiated Documentation: 08/11/18 14:28. Limitations to Documentation: no limitations. Information obtained by: patient and EMS. History of Present Illness 73 year old F presents to the emergency department with the chief complaint of SOB, described as moderate, Patient started experiencing this hour(s) and it has been constant. No relieving factors improve symptom(s), No exacerbating factors reported . Patient notes nausea/vomiting (endorses nausea today, reports vomiting x 2) and shortness of breath; denies chest pain, cough, diaphoresis, fever/chills, headaches, rash, syncope and weakness. Patient did receive the following treatments prior to arrival, other (received duoneb from EMS) Related Data Home Medications Medication Instructions Recorded Confirmed fluticasone 1 spr NS daily prn #3 bottle 09/03/16 07/19/18 gabapentin 2 tab PO BID #56 cap 03/25/17 07/19/18 naltrexone 50 mg PO DAILY #30 tab-cap 11/04/17 07/19/18 pyridoxine (vitamin B6) [Vitamin 50 mg PO nightly #60 cap 11/04/17 07/19/18 B-6] venlafaxine 37.5 mg PO DAILY #90 tab-cap 11/04/17 07/19/18 ondansetron HCl 4 mg PO Q6H PRN PRN #15 tab-cap 12/21/17 07/19/18 acetaminophen [Mapap Extra 500 mg PO Q6H tab 04/17/18 07/19/18 Strength] polyethylene glycol 3350 17 gm PO DAILY PRN PRN packet 04/17/18 07/19/18 tramadol 50 mg PO Q6H PRN PRN tab 04/17/18 07/19/18 pantoprazole 40 mg PO BID@0730,2000 #60 tab 05/24/18 07/19/18 ranitidine HCl 150 mg PO BID #60 tab 05/24/18 07/19/18 venlafaxine 150 mg PO DAILY #30 cap 05/24/18 07/19/18 carisoprodol [Soma] 350 mg PO TID #15 tab 06/14/18 07/19/18 lidocaine [Lidoderm] 2 patch TOPICAL DAILY #1 pkg 06/14/18 07/19/18 Narcan 1 spray EZIO ONCE PRN #2 each 06/28/18 07/19/18 multivitamin [Multiple Vitamins] 1 tab PO DAILY #0 tab 06/28/18 07/19/18 oxazepam 15 mg PO TID #9 cap 06/28/18 07/19/18 sucralfate 1 g PO AC & HS #0 tab 06/28/18 07/19/18 venlafaxine [Effexor XR] 37.5 mg PO DAILY #0 cap 06/28/18 07/19/18 chlordiazepoxide HCl See Rx Instructions .ROUTE 07/08/18 07/19/18 .COMPLEX #30 cap amlodipine 10 mg PO DAILY #14 tab 08/11/18 carvedilol [Coreg] 6.25 mg PO BID #28 tab 08/11/18 cholecalciferol (vitamin D3) 2,000 units PO DAILY #14 tab 08/11/18 cyanocobalamin (vitamin B-12) 1,000 mcg PO DAILY #14 tab 08/11/18 [Vitamin B-12] folic acid 1 mg PO DAILY #14 tab 08/11/18 losartan 100 mg PO DAILY #14 tab 08/11/18 magnesium oxide 400 mg PO TID #14 tab 08/11/18 potassium chloride 20 meq PO BID #14 tab-cap 08/11/18 spironolactone 50 mg PO DAILY #14 tab 08/11/18 thiamine mononitrate (vit B1) 100 mg PO QAM #14 tab 08/11/18 [Vitamin B-1 (mononitrate)] Previous Rx's Medication Instructions Recorded naltrexone 50 mg PO DAILY #30 tab-cap 11/04/17 pyridoxine (vitamin B6) [Vitamin 50 mg PO nightly #60 cap 11/04/17 B-6] venlafaxine 37.5 mg PO DAILY #90 tab-cap 11/04/17 ondansetron HCl 4 mg PO Q6H PRN PRN #15 tab-cap 12/21/17 acetaminophen [Mapap Extra 500 mg PO Q6H tab 04/17/18 Strength] polyethylene glycol 3350 17 gm PO DAILY PRN PRN packet 04/17/18 tramadol 50 mg PO Q6H PRN PRN tab 04/17/18 pantoprazole 40 mg PO BID@0730,2000 #60 tab 05/24/18 ranitidine HCl 150 mg PO BID #60 tab 05/24/18 venlafaxine 150 mg PO DAILY #30 cap 05/24/18 carisoprodol [Soma] 350 mg PO TID #15 tab 06/14/18 lidocaine [Lidoderm] 2 patch TOPICAL DAILY #1 pkg 06/14/18 Narcan 1 spray EZIO ONCE PRN #2 each 06/28/18 multivitamin [Multiple Vitamins] 1 tab PO DAILY #0 tab 06/28/18 oxazepam 15 mg PO TID #9 cap 06/28/18 sucralfate 1 g PO AC & HS #0 tab 06/28/18 venlafaxine [Effexor XR] 37.5 mg PO DAILY #0 cap 06/28/18 chlordiazepoxide HCl See Rx Instructions .ROUTE 07/08/18 .COMPLEX #30 cap amlodipine 10 mg PO DAILY #14 tab 08/11/18 carvedilol [Coreg] 6.25 mg PO BID #28 tab 08/11/18 cholecalciferol (vitamin D3) 2,000 units PO DAILY #14 tab 08/11/18 cyanocobalamin (vitamin B-12) 1,000 mcg PO DAILY #14 tab 08/11/18 [Vitamin B-12] folic acid 1 mg PO DAILY #14 tab 08/11/18 losartan 100 mg PO DAILY #14 tab 08/11/18 magnesium oxide 400 mg PO TID #14 tab 08/11/18 potassium chloride 20 meq PO BID #14 tab-cap 08/11/18 spironolactone 50 mg PO DAILY #14 tab 08/11/18 thiamine mononitrate (vit B1) 100 mg PO QAM #14 tab 08/11/18 [Vitamin B-1 (mononitrate)] Allergies Allergy/AdvReac Type Severity Reaction Status Date / Time Penicillins Allergy Mild Rash Unverified 08/11/18 14:31 ramipril Allergy Unknown ITCHING Unverified 08/11/18 14:31 meperidine [From Demerol] AdvReac Severe Nausea Unverified 08/11/18 14:31 bupropion AdvReac Mild GI upset Unverified 08/11/18 14:31 AMBER Inhibitors AdvReac Unknown COUGH Unverified 08/11/18 14:31 alendronate sodium AdvReac Unknown GI Distress Unverified 08/11/18 14:31 clarithromycin AdvReac Unknown intolerant Unverified 08/11/18 14:31 paroxetine AdvReac Unknown Diarrhea Unverified 08/11/18 14:31 General Stated Complaint: RespSymp JORDAN: 3 Review of Systems <CELIAN Villarreal - Last Filed: 08/13/18 08:14> Constitutional Reports as per HPI and Denies headache(s) Eyes Reports as per HPI, Denies eye discharge and Denies irritation ENT Denies headache(s) Cardiovascular Reports as per HPI, Denies chest pain, Denies pedal edema, Denies leg edema, Reports lightheadedness, Denies radiating jaw, neck or arm pain, Denies palpitations, Reports dyspnea and Reports dyspnea on exertion Respiratory Reports dyspnea and Reports dyspnea on exertion Gastrointestinal Reports as per HPI, Denies abdominal pain, Denies change in bowel habits, Reports nausea and Reports vomiting Integumentary/Breasts Reports as per HPI and Denies rash Neurologic Denies headache(s) Endocrine Denies palpitations PFS <CELINA Villarreal - Last Filed: 08/13/18 08:14> Medical History Chronic alcoholic gastritis (Chronic 10/12/17) Urinary incontinence (Chronic) Tubular adenoma of colon (Chronic 01/28/17) Sciatica (Chronic) 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) Osteopenia (Chronic) Osteoarthritis (Chronic 03/29/14) Non-cardiac chest pain (Chronic 09/21/16) Macrocytosis (Chronic 09/26/14) Hyperlipidemia (Chronic 02/23/13) Genital herpes simplex (Chronic) GI bleed (Chronic 12/20/16) Elev transaminase/LDH (Chronic) Cervical radicular pain (Chronic) Cataract (Chronic 11/07/15) Anemia (Chronic 12/20/16) Allergic rhinitis (Chronic) Alcohol abuse (Chronic) Alcoholic ketosis (Resolved) Alcohol abuse (Chronic) Hypertension (Acute) Hyperlipidemia (Chronic) Back pain, chronic (Chronic) Depression (Chronic) Osteoarthritis (Chronic) Osteopenia (Chronic) Urinary incontinence (Chronic) 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) Headache (Chronic) Gastritis (Chronic) Wernicke encephalopathy (Chronic) GERD (gastroesophageal reflux disease) (Chronic) Falling (Chronic) Right rib fracture (Acute) Alcohol dependence (Chronic) Anemia (Chronic) Alcohol abuse Depression Essential hypertension Hyperlipidemia Osteoarthritis Sciatica Urinary incontinence Surgical History Bladder Surgery Colonoscopy - MAC (01/28/17) EGD - MAC (12/20/16) Ligation of fallopian tube Repair bladder injury, simple Social History Smoking/Tobacco Use Status: Former Tobacco Use Exam <CELINA Villarreal - Last Filed: 08/13/18 08:14> Const General: cooperative, healthy appearing, comfortable, no acute distress, well developed and well groomed Nutritional Appearance: well nourished and obese Orientation: alert and awake [facility] Head: normal to inspection, normocephalic and atraumatic Ears: hearing grossly normal bilaterally, external ears normal and TM's normal bilaterally General nose exam: external nose normal and nares normal Face and sinus: normal facial exam, sinuses nontender and face symmetric Mouth: oral mucosae normal, lip normal, tongue normal, oropharynx normal and moist mucous membranes Teeth and gingiva: dentition normal Throat: posterior oropharynx normal, tonsils normal and uvula midline Eyes General: appearance normal, both eyes and all related structures Neck Neck: normal visual inspection, full ROM, no lymphadenopathy and no meningeal signs Resp Effort & Inspection: normal respiratory effort, able to speak in complete sentences, no respiratory distress and tachypneic Auscultation: clear to auscultation bilaterally, no rales, no rhonchi and no wheezes Cardio Rate: regular rate Rhythm: regular rhythm Heart Sounds: S1 normal and S2 normal GI Inspection: normal to inspection and non-distended Palpation: soft, not firm, no guarding and nontender Skin General skin exam: no rashes or lesions noted Neuro General: alert and awake Cognition: normal cognition Speech: speech normal Gait: normal gait Extrem General: normal to inspection, no clubbing, cyanosis or edema, no pedal edema and no calf tenderness Psych Appearance: grossly normal and well kempt Mental Status: mental status grossly normal Speech and Movement: speech and movement normal Course <CELINA Villarreal - Last Filed: 08/13/18 08:14> Vital Signs Temperature 37.1 C 08/11/18 14:26 Pulse 124 H 08/11/18 14:26 Respiratory Rate 26 H 08/11/18 14:26 Blood Pressure 180/132 H 08/11/18 14:26 Pulse Oximetry 98 08/11/18 14:26 Temperature 37.1 C 08/11/18 14:26 Temperature Source Skin 08/11/18 14:26 Pulse 124 H 08/11/18 14:26 Respiratory Rate 26 H 08/11/18 14:26 Respiratory Effort 08/11/18 14:31 Blood Pressure 180/132 H 08/11/18 14:26 Pulse Oximetry 98 08/11/18 14:26 Oxygen Delivery Method Room Air 08/11/18 14:26 Oxygen Flow Rate 0 08/11/18 14:26 Pain Level 3 08/11/18 14:26 Sign Out <CELINA Villarreal - Last Filed: 08/13/18 08:14> Sign Out Data: Sign Out Comment: Care signed out to Nestor Rosales NP. Pending results of antihypertensives. Needs magnesium and potassium replenished. Continue to monitor for withdrawal. No ETOH today per patient report. Last updated by Tash Servin PA at 08/11/18 16:13 Post-Handoff Eval: Care of patient was resumed from Natalee PATRICK. Patient remained tachycardic and hypertensive but alert and oriented x4 with no tremors noted. Patient given p.o. mag and potassium but given patient remained tachycardic and hypotensive in spite of fluid resuscitation I have concern for alcohol withdrawal. Patient given 1 mg an hour of Ativan and continue to monitor. Patient did have significant reduction of blood pressure to 180s over 90s and heart rate below 100. Per review of previous medical records this seems to be patient's baseline. Given concern for alcohol withdrawal and potential complications I did discuss with patient benefit of admission which she states that she does not want to be admitted and wants to go home. social staff worker was present for discussion of AMA and paperwork was signed. Given that patient states that she has not been taking her medications due to not being able to get them refilled due to inability to get to the pharmacy. Patient was informed that she does have our CT services and to call them for transportation. Patient was given 2-week prescriptions for associated medications with hypokalemia, hypomagnesia, alcohol abuse, hypertension. Patient was strongly encouraged to return for any new or significant worsening of symptoms and informed that she may return for any further withdrawal symptoms. Patient states full resolution of shortness of breath. Patient was able to ambulate through the emergency department had steady gait. Patient was alert and oriented and competent to make decisions of her own accord. social staff worker Adonis, was present during discussion of leaving AGAINST MEDICAL ADVICE and signing of paperwork.
[2018-08-11 14:54] LABS: Abs Immature Grans 0.01 k/cumm (0.0-0.09); Absolute Basophil Count 0.02 k/cumm (0.0-0.2); Absolute Eosinophil Count 0.01 k/cumm (0.0-0.7); Absolute Lymphocyte Count 0.87 k/cumm (1.2-3.4); Absolute Monocyte Count 0.42 k/cumm (0.11-0.7); Absolute Neutrophil Count 3.75 k/cumm (1.2-6.7); Basophils % 0.4; Eosinophils % 0.2; HCT 35.5 % (36.0-46.0); HGB 11.3 g/dL (12.0-15.5); Immature Grans % 0.2; Lymphocytes % 17.1; Mean Corp. HGB Concentration 31.8 g/dL (32.0-36.0); Mean Corpuscular Hemoglobin 30.5 pg (27.0-33.0); Mean Corpuscular Volume 95.9 fL (80-95); Mean Platelet Volume 8.8 fL (8.0-11.0); Monocytes % 8.3; Neutrophils % 73.8; Platelet Count 139 x1000/uL (130-400); RBC Distribution Width 14.7 % (11.7-14.6); White Blood Cell Count 5.08 k/cumm (4.4-10.8)
--- NOTE | 2018-08-11 15:12 | NUR.NOTE ---
patient reports not haviong anti-hypertensoives x 1 wwek CELINA aware Nursing Note:
[2018-08-11 15:17] LABS: ETHANOL BLOOD 58.6 mg/dL (<3); Lipase 110 U/L (73-393); Magnesium 1.2 mg/dL (1.8-2.4); Troponin I 0.02 ng/mL (0.00-0.06)
[2018-08-11] MEDS: amLODIPine 10 MG TAB PO (15:43)
[2018-08-11] MEDS: Carvedilol 6.25 MG TAB PO (15:43)
--- NOTE | 2018-08-11 15:45 | NUR.NOTE ---
patient medicated per PA order Nursing Note:
[2018-08-11 15:46] LABS: ALT 63 U/L (12-78); AST 116 U/L (15-37); Albumin 3.5 g/dL (3.4-5.0); Alkaline Phosphatase 143 U/L (46-116); Anion Gap 18.6 mmol/L (3-11); BUN 15 mg/dL (7-18); Bilirubin, Total 1.3 mg/dL (0.2-1.0); CO2 22.4 mmol/L (21.0-32.0); CREATININE 0.81 mg/dL (0.55-1.02); Calcium 9.5 mg/dL (8.5-10.1); Chloride 100 mmol/L (98-107); Glucose 124 mg/dL (70-100); Sodium 141 mmol/L (136-145); Total Protein 7.1 g/dL (6.4-8.2)
[2018-08-11 16:01] LABS: Bilirubin Negative (Negative); Blood Trace-intact (Negative); Clarity Cloudy; Glucose Negative (Negative); Ketones 15 mg/dL (Negative); Leukocyte Esterase Negative (Negative); Nitrite Positive (Negative); Specific Gravity 1.025 (1.005-1.025)
[2018-08-11 16:11] LABS: Bacteria Packed HPF (Negative); C & S Indicated? Yes; Crystals Few Calcium Oxalate HPF (Negative)
[2018-08-11 16:14] LABS: *AMPHETAMINES SCREEN URINE Negative (Negative); *BARBITURATES SCREEN URINE Negative (Negative); *BENZODIAZEPINES SCREEN URINE POSITIVE (Negative); Cannabinoids THC Negative (Negative); Cocaine Screen,Urine Negative (Negative); METHADONE URINE SCREEN Negative (Negative); OPIATES URINE SCREEN Negative (Negative)
[2018-08-11 16:15] LABS: Tricyclic Antidepressants Negative (Negative)
[2018-08-11] MEDS: Potassium Chloride 20 MEQ TABCR 40 MEQ PO (16:41)
[2018-08-11] MEDS: Magnesium Oxide 400 MG TAB 800 MG PO (16:42)
[2018-08-11] MEDS: LORazepam 2 MG/ML VIAL 1 MG IVP (16:42)
--- NOTE | 2018-08-11 16:51 | NUR.NOTE ---
patient mediicated per MD order, patient is feeling better Nursing Note:
--- NOTE | 2018-08-11 17:59 | NUR.NOTE ---
patient desires to be discharged, IV dc'd, patient ambulates with a steady gait Nursing Note:
--- NOTE | 2018-08-11 18:31 | NUR.NOTE ---
nusrat hernandez resting comfortbaly, awaiting RCT Nursing Note:
--- NOTE | 2018-08-11 19:07 | NUR.NOTE ---
patient left AMA, patient home with RCT Nursing Note:
== END 2018-08-11 19:00 | disposition left against medical advice (07) ==
PROVIDERS: Physician Assistant; Emergency Provider Nurse Practitioner Family; PCP Family Medicine
DX: E87.6 Hypokalemia (principal); F10.230 Alcohol dependence with withdrawal, uncomplicated; E83.42 Hypomagnesemia; I10 Essential (primary) hypertension; Z53.29 Procedure and treatment not carried out because of patient's decision for other reasons
CPT/HCPCS: 36415; 80053; 80307; 83690; 87077; 96374; 99284; 71046; 80320; 81003; 81015; 83735; 84484; 85025; 87086; 87186; J2060

== ENCOUNTER 2018-08-17 01:10 | Emergency (ER) | payer OTHER, SELFPAY ==
--- NOTE | 2018-08-17 01:24 | W.ED.GENAD ---
Discharge Plan Disposition Patient Disposition: HOME Condition: Good Discharge Details Chief Complaint: EyeProblem Clinical Impression: Pain, eye, right Reason For Visit: LUÍS Primary Care Provider: Lavelle Galindo ED Provider: Wes Dc [place] Meds and New Rx's Prescriptions: Continued fluticasone 16 GM spray,suspension 1 spr NS daily prn Qty: 3 RF: 3 gabapentin 100 MG capsule 2 tab PO BID Qty: 56 RF: 3 venlafaxine 37.5 MG tablet 37.5 mg PO DAILY Qty: 90 RF: 3 naltrexone 50 MG tablet 50 mg PO DAILY Qty: 30 RF: 2 pyridoxine (vitamin B6) [Vitamin B-6] 50 MG tablet 50 mg PO nightly Qty: 60 RF: 4 polyethylene glycol 3350 17 GM powder in packet 17 gm PO DAILY PRN PRN (Reason: Constipation) RF: 0 tramadol 50 MG tablet 50 mg PO Q6H PRN PRNRF: 0 acetaminophen [Mapap Extra Strength] 500 MG tablet 500 mg PO Q6H RF: 0 venlafaxine 150 mg Capsule,Extended Release 24hr 150 mg PO DAILY Qty: 30 RF: 0 pantoprazole 40 mg Tablet,Delayed Release (Dr/Ec) 40 mg PO BID@0730,2000 Qty: 60 RF: 0 ranitidine HCl 150 mg Tablet 150 mg PO BID Qty: 60 RF: 0 chlordiazepoxide HCl 25 mg capsule See Rx Instructions .ROUTE .COMPLEX Qty: 30 RF: 0 losartan 50 mg Tablet 100 mg PO DAILY Qty: 14 RF: 0 carvedilol [Coreg] 6.25 mg Tablet 6.25 mg PO BID Qty: 28 RF: 0 spironolactone 25 mg Tablet 50 mg PO DAILY Qty: 14 RF: 0 magnesium oxide 400 mg (241.3 mg magnesium) Tablet 400 mg PO TID Qty: 14 RF: 0 cyanocobalamin (vitamin B-12) [Vitamin B-12] 500 mcg Tablet 1,000 mcg PO DAILY Qty: 14 RF: 0 amlodipine 10 mg Tablet 10 mg PO DAILY Qty: 14 RF: 0 folic acid 1 mg Tablet 1 mg PO DAILY Qty: 14 RF: 0 cholecalciferol (vitamin D3) 1,000 unit Tablet 2,000 units PO DAILY Qty: 14 RF: 0 thiamine mononitrate (vit B1) [Vitamin B-1 (mononitrate)] 100 mg Tablet 100 mg PO QAM Qty: 14 RF: 0 potassium chloride 20 MEQ tablet extended release 20 meq PO BID Qty: 14 RF: 3 ondansetron HCl 4 MG tablet 4 mg PO Q6H PRN PRNQty: 15 RF: 0 carisoprodol [Soma] 350 mg Tablet 350 mg PO TID Qty: 15 RF: 0 lidocaine [Lidoderm] 5 % Adhesive Patch,Medicated 2 patch Topical DAILY Qty: 1 RF: 0 multivitamin [Multiple Vitamins] Tablet 1 tab PO DAILY Qty: 0 RF: 0 sucralfate 1 gram Tablet 1 g PO AC & HS Qty: 0 RF: 0 oxazepam 15 mg capsule 15 mg PO TID Qty: 9 RF: 0 Narcan 4 mg/actuation spray,non-aerosol 1 spray EZIO ONCE PRN (Reason: opioid overdose) Qty: 2 RF: 0 Discharge Instructions Additional Instructions: You will need to bulk picker the prescription that you received from [facility] yesterday. Begin using it and follow up with [facility]. Return to ED for fever, new neurologic symptoms, continued worsening pain. Referrals: [facility] [Outside] Medical Decision Making Patient was seen for eye complaint this afternoon at [facility]. She cannot tell me what her diagnosis was. She cannot tell me the medication she was supposed to bulk picker at the pharmacy. Attempts were made to contact the provider on for [facility]. At no point were any calls returned. By morning there has been no changes in the patient's status. She does appear to have some corneal opacification versus abrasion versus ulceration on exam. There has been no significant change while she has been here. Will discharge from the ED to go to pharmacy and bulk picker the medication ointment that she is supposed to be using. She can follow up with [facility] next week if not better. Return to ED for any new neurologic symptoms, fever, worsening pain. HPI General Mode of arrival: EMS. Date/Time Provider Initiated Documentation: 08/17/18 01:22. Limitations to Documentation: no limitations. Information obtained by: patient. HPI Narrative: Patient presents to ED with right eye pain. She was actually seen by the eye doctor in the afternoon and she was prescribed medication but did not go to the pharmacy to get it. She reports having pain for the last 2-3 days with loss of vision. She states that she was told there was a injury to the eye. Light makes the discomfort much worse. She continues to have no real vision in the eye. She has previously had cataract surgery in that eye. She denies headache or other neurologic changes. She denies nausea vomiting. Related Data Home Medications Medication Instructions Recorded Confirmed fluticasone 1 spr NS daily prn #3 bottle 09/03/16 07/19/18 gabapentin 2 tab PO BID #56 cap 03/25/17 07/19/18 naltrexone 50 mg PO DAILY #30 tab-cap 11/04/17 07/19/18 pyridoxine (vitamin B6) [Vitamin 50 mg PO nightly #60 cap 11/04/17 07/19/18 B-6] venlafaxine 37.5 mg PO DAILY #90 tab-cap 11/04/17 07/19/18 ondansetron HCl 4 mg PO Q6H PRN PRN #15 tab-cap 12/21/17 07/19/18 acetaminophen [Mapap Extra 500 mg PO Q6H tab 04/17/18 07/19/18 Strength] polyethylene glycol 3350 17 gm PO DAILY PRN PRN packet 04/17/18 07/19/18 tramadol 50 mg PO Q6H PRN PRN tab 04/17/18 07/19/18 pantoprazole 40 mg PO BID@0730,2000 #60 tab 05/24/18 07/19/18 ranitidine HCl 150 mg PO BID #60 tab 05/24/18 07/19/18 venlafaxine 150 mg PO DAILY #30 cap 05/24/18 07/19/18 carisoprodol [Soma] 350 mg PO TID #15 tab 06/14/18 07/19/18 lidocaine [Lidoderm] 2 patch TOPICAL DAILY #1 pkg 06/14/18 07/19/18 Narcan 1 spray EZIO ONCE PRN #2 each 06/28/18 07/19/18 multivitamin [Multiple Vitamins] 1 tab PO DAILY #0 tab 06/28/18 07/19/18 oxazepam 15 mg PO TID #9 cap 06/28/18 07/19/18 sucralfate 1 g PO AC & HS #0 tab 06/28/18 07/19/18 chlordiazepoxide HCl See Rx Instructions .ROUTE 07/08/18 07/19/18 .COMPLEX #30 cap amlodipine 10 mg PO DAILY #14 tab 08/11/18 carvedilol [Coreg] 6.25 mg PO BID #28 tab 08/11/18 cholecalciferol (vitamin D3) 2,000 units PO DAILY #14 tab 08/11/18 cyanocobalamin (vitamin B-12) 1,000 mcg PO DAILY #14 tab 08/11/18 [Vitamin B-12] folic acid 1 mg PO DAILY #14 tab 08/11/18 losartan 100 mg PO DAILY #14 tab 08/11/18 magnesium oxide 400 mg PO TID #14 tab 08/11/18 potassium chloride 20 meq PO BID #14 tab-cap 08/11/18 spironolactone 50 mg PO DAILY #14 tab 08/11/18 thiamine mononitrate (vit B1) 100 mg PO QAM #14 tab 08/11/18 [Vitamin B-1 (mononitrate)] Previous Rx's Medication Instructions Recorded naltrexone 50 mg PO DAILY #30 tab-cap 11/04/17 pyridoxine (vitamin B6) [Vitamin 50 mg PO nightly #60 cap 11/04/17 B-6] venlafaxine 37.5 mg PO DAILY #90 tab-cap 11/04/17 ondansetron HCl 4 mg PO Q6H PRN PRN #15 tab-cap 12/21/17 acetaminophen [Mapap Extra 500 mg PO Q6H tab 04/17/18 Strength] polyethylene glycol 3350 17 gm PO DAILY PRN PRN packet 04/17/18 tramadol 50 mg PO Q6H PRN PRN tab 04/17/18 pantoprazole 40 mg PO BID@0730,2000 #60 tab 05/24/18 ranitidine HCl 150 mg PO BID #60 tab 05/24/18 venlafaxine 150 mg PO DAILY #30 cap 05/24/18 carisoprodol [Soma] 350 mg PO TID #15 tab 06/14/18 lidocaine [Lidoderm] 2 patch TOPICAL DAILY #1 pkg 06/14/18 Narcan 1 spray EZIO ONCE PRN #2 each 06/28/18 multivitamin [Multiple Vitamins] 1 tab PO DAILY #0 tab 06/28/18 oxazepam 15 mg PO TID #9 cap 06/28/18 sucralfate 1 g PO AC & HS #0 tab 06/28/18 chlordiazepoxide HCl See Rx Instructions .ROUTE 07/08/18 .COMPLEX #30 cap amlodipine 10 mg PO DAILY #14 tab 08/11/18 carvedilol [Coreg] 6.25 mg PO BID #28 tab 08/11/18 cholecalciferol (vitamin D3) 2,000 units PO DAILY #14 tab 08/11/18 cyanocobalamin (vitamin B-12) 1,000 mcg PO DAILY #14 tab 08/11/18 [Vitamin B-12] folic acid 1 mg PO DAILY #14 tab 08/11/18 losartan 100 mg PO DAILY #14 tab 08/11/18 magnesium oxide 400 mg PO TID #14 tab 08/11/18 potassium chloride 20 meq PO BID #14 tab-cap 08/11/18 spironolactone 50 mg PO DAILY #14 tab 08/11/18 thiamine mononitrate (vit B1) 100 mg PO QAM #14 tab 08/11/18 [Vitamin B-1 (mononitrate)] Allergies Allergy/AdvReac Type Severity Reaction Status Date / Time Penicillins Allergy Mild Rash Unverified 08/11/18 14:31 ramipril Allergy Unknown ITCHING Unverified 08/11/18 14:31 meperidine [From Demerol] AdvReac Severe Nausea Unverified 08/11/18 14:31 bupropion AdvReac Mild GI upset Unverified 08/11/18 14:31 AMBER Inhibitors AdvReac Unknown COUGH Unverified 08/11/18 14:31 alendronate sodium AdvReac Unknown GI Distress Unverified 08/11/18 14:31 clarithromycin AdvReac Unknown intolerant Unverified 08/11/18 14:31 paroxetine AdvReac Unknown Diarrhea Unverified 08/11/18 14:31 General JORDAN: 3 Review of Systems Constitutional Denies chills, Denies fever(s) and Denies headache(s) Eyes Reports loss of vision and Reports eye pain ENT Denies otalgia, Denies facial pain and Denies headache(s) Gastrointestinal Denies diarrhea, Denies nausea and Denies vomiting Musculoskeletal Denies numbness Neurologic Denies headache(s), Denies focal weakness, Reports loss of vision and Denies numbness [facility] Medical History Chronic alcoholic gastritis (Chronic 10/12/17) Urinary incontinence (Chronic) Tubular adenoma of colon (Chronic 01/28/17) Sciatica (Chronic) 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) Osteopenia (Chronic) Osteoarthritis (Chronic 03/29/14) Non-cardiac chest pain (Chronic 09/21/16) Macrocytosis (Chronic 09/26/14) Hyperlipidemia (Chronic 02/23/13) Genital herpes simplex (Chronic) GI bleed (Chronic 12/20/16) Elev transaminase/LDH (Chronic) Cervical radicular pain (Chronic) Cataract (Chronic 11/07/15) Anemia (Chronic 12/20/16) Allergic rhinitis (Chronic) Alcohol abuse (Chronic) Alcoholic ketosis (Resolved) Alcohol abuse (Chronic) Hypertension (Acute) Hyperlipidemia (Chronic) Back pain, chronic (Chronic) Depression (Chronic) Osteoarthritis (Chronic) Osteopenia (Chronic) Urinary incontinence (Chronic) 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) Headache (Chronic) Gastritis (Chronic) Wernicke encephalopathy (Chronic) GERD (gastroesophageal reflux disease) (Chronic) Falling (Chronic) Right rib fracture (Acute) Alcohol dependence (Chronic) Anemia (Chronic) Alcohol abuse Depression Essential hypertension Hyperlipidemia Osteoarthritis Sciatica Urinary incontinence Surgical History Bladder Surgery Colonoscopy - MAC (01/28/17) EGD - MAC (12/20/16) Ligation of fallopian tube Repair bladder injury, simple Social History Smoking/Tobacco Use Status: Former Tobacco Use Exam Const General: cooperative and uncomfortable Orientation: alert and oriented x3 HENMT Head: normocephalic and atraumatic Face and sinus: normal facial exam Eyes Periorbital: periorbital findings normal Eyelids: eyelids normal Conjunctivae: conjunctival abnormality right conjunctival injection Cornea: corneas abnormal on the right Pupils: other (Previous right cataract surgery) EOM: EOM intact bilaterally Skin General skin exam: no erythema Neuro General: alert, oriented x3, no focal motor deficits and CN's II-XI intact bilaterally
[2018-08-17 05:18] VITALS: BP 159/73; PULSE 89; RESP 16; TEMP 37.2; O2SAT 98
--- NOTE | 2018-08-17 08:42 | PDOC.ERCMPRO ---
- If Service Date Differs Date of service: 08/17/18 Time of Service: 08:43 Care Management Progress Note CM received notification from NORMA Emmanuel, that Leticia was returning home, and did not have money to obtain her prescription. CAPO contacted Zachary Randhawa [facility], and she will outreach to Leticia in regards to obtaining her prescription.
--- NOTE | 2018-08-17 09:30 | CMPROGNOTE_ITS ---
- If Service Date Differs Date of service: 08/17/18 Time of Service: 08:43 Care Management Progress Note CM received notification from NORMA Emmanuel, that Leticia was returning home, and did not have money to obtain her prescription. CAPO contacted Zachary Randhawa [facility], and she will outreach to Leticia in regards to obtaining her prescription.
== END 2018-08-17 07:25 | disposition home or self-care (01) ==
PROVIDERS: Emergency Provider Emergency Medicine; PCP Family Medicine
DX: H57.11 Ocular pain, right eye (principal)
CPT/HCPCS: 99283

== ENCOUNTER 2018-08-22 08:00 | Emergency (ER) | payer OTHER, SELFPAY ==
[2018-08-22 08:05] VITALS: BP 171/86; PULSE 113; RESP 18; TEMP 36.6; O2SAT 100
--- NOTE | 2018-08-22 08:19 | NUR.NOTE ---
MD Mccarthy at the bedside.
--- NOTE | 2018-08-22 08:26 | ED.GENADUL_ITS ---
Discharge Plan Disposition Patient Disposition: HOME Condition: Stable Discharge Details Chief Complaint: EyeProblem Clinical Impression: Corneal ulcer Reason For Visit: LUÍS Primary Care Provider: Lavelle Galindo ED Provider: Blaze Mccarthy [place] Meds and New Rx's Prescriptions: No Action fluticasone 16 GM spray,suspension 1 spr NS daily prn Qty: 3 RF: 3 gabapentin 100 MG capsule 2 tab PO BID Qty: 56 RF: 3 venlafaxine 37.5 MG tablet 37.5 mg PO DAILY Qty: 90 RF: 3 naltrexone 50 MG tablet 50 mg PO DAILY Qty: 30 RF: 2 pyridoxine (vitamin B6) [Vitamin B-6] 50 MG tablet 50 mg PO nightly Qty: 60 RF: 4 polyethylene glycol 3350 17 GM powder in packet 17 gm PO DAILY PRN PRN (Reason: Constipation) RF: 0 tramadol 50 MG tablet 50 mg PO Q6H PRN PRNRF: 0 acetaminophen [Mapap Extra Strength] 500 MG tablet 500 mg PO Q6H RF: 0 venlafaxine 150 mg Capsule,Extended Release 24hr 150 mg PO DAILY Qty: 30 RF: 0 pantoprazole 40 mg Tablet,Delayed Release (Dr/Ec) 40 mg PO BID@0730,2000 Qty: 60 RF: 0 ranitidine HCl 150 mg Tablet 150 mg PO BID Qty: 60 RF: 0 chlordiazepoxide HCl 25 mg capsule See Rx Instructions .ROUTE .COMPLEX Qty: 30 RF: 0 losartan 50 mg Tablet 100 mg PO DAILY Qty: 14 RF: 0 carvedilol [Coreg] 6.25 mg Tablet 6.25 mg PO BID Qty: 28 RF: 0 spironolactone 25 mg Tablet 50 mg PO DAILY Qty: 14 RF: 0 magnesium oxide 400 mg (241.3 mg magnesium) Tablet 400 mg PO TID Qty: 14 RF: 0 cyanocobalamin (vitamin B-12) [Vitamin B-12] 500 mcg Tablet 1,000 mcg PO DAILY Qty: 14 RF: 0 amlodipine 10 mg Tablet 10 mg PO DAILY Qty: 14 RF: 0 folic acid 1 mg Tablet 1 mg PO DAILY Qty: 14 RF: 0 cholecalciferol (vitamin D3) 1,000 unit Tablet 2,000 units PO DAILY Qty: 14 RF: 0 thiamine mononitrate (vit B1) [Vitamin B-1 (mononitrate)] 100 mg Tablet 100 mg PO QAM Qty: 14 RF: 0 potassium chloride 20 MEQ tablet extended release 20 meq PO BID Qty: 14 RF: 3 ondansetron HCl 4 MG tablet 4 mg PO Q6H PRN PRNQty: 15 RF: 0 carisoprodol [Soma] 350 mg Tablet 350 mg PO TID Qty: 15 RF: 0 lidocaine [Lidoderm] 5 % Adhesive Patch,Medicated 2 patch Topical DAILY Qty: 1 RF: 0 multivitamin [Multiple Vitamins] Tablet 1 tab PO DAILY Qty: 0 RF: 0 sucralfate 1 gram Tablet 1 g PO AC & HS Qty: 0 RF: 0 oxazepam 15 mg capsule 15 mg PO TID Qty: 9 RF: 0 Narcan 4 mg/actuation spray,non-aerosol 1 spray EZIO ONCE PRN (Reason: opioid overdose) Qty: 2 RF: 0 Discharge Instructions Instructions: Corneal Ulcer (ED) Additional Instructions: I have placed you on a list to see your relations specialist this week take 1000mg tylenol and 600mg ibuprofen every 6 hours for pain Medical Decision Making 73 yo female who denies chronic eye problems comes in with right eye pain for 5 days after waking up, denies known eye trauma, deep eye pain or fevers. She saw optometerist nuvia Merritt on 08/17, was prescribed topical abx and dx'd with corneal tear. She did not fill the prescription that day and got it the next day. She states she still has pain so came here today. She has no periorbital swleling or redness. Does have injected conjunctiva of the right eye and normal appearance of the left eye, perrl, eomi. IOP pressure 11 in the right eye, 10 in the left eye, she refuses to open the eye to check visual accuity. She has a corneal ulcer over the right pupil without evidence of globe rupture and small amount of iritis. No foreign body on exam. I am going to prescribe her cyclopentolate and abx and I am going to have her f/u with her relations specialist this week Differential Diagnosis iritis, corneal abrasion, glaucoma HPI General Mode of arrival: EMS . Date/Time Provider Initiated Documentation: 08/22/18 08:12 . Limitations to Documentation: no limitations . Information obtained by: patient . History of Present Illness 73 year old F presents to the emergency department with the chief complaint of right eye pain, described as severe, with intensity rated at 8. Quality is described as sharp, and is localized to the eyes. Patient reports no radiation. Patient started experiencing this day(s) (5) and it has been constant. No relieving factors improve symptom(s), No exacerbating factors reported . Patient notes no other symptoms.. Patient did receive the following treatments prior to arrival, none Related Data Home Medications Medication Instructions Recorded Confirmed fluticasone 1 spr NS daily prn #3 bottle 09/03/16 07/19/18 gabapentin 2 tab PO BID #56 cap 03/25/17 07/19/18 naltrexone 50 mg PO DAILY #30 tab-cap 11/04/17 07/19/18 pyridoxine (vitamin B6) [Vitamin 50 mg PO nightly #60 cap 11/04/17 07/19/18 B-6] venlafaxine 37.5 mg PO DAILY #90 tab-cap 11/04/17 07/19/18 ondansetron HCl 4 mg PO Q6H PRN PRN #15 tab-cap 12/21/17 07/19/18 acetaminophen [Mapap Extra 500 mg PO Q6H tab 04/17/18 07/19/18 Strength] polyethylene glycol 3350 17 gm PO DAILY PRN PRN packet 04/17/18 07/19/18 tramadol 50 mg PO Q6H PRN PRN tab 04/17/18 07/19/18 pantoprazole 40 mg PO BID@0730,2000 #60 tab 05/24/18 07/19/18 ranitidine HCl 150 mg PO BID #60 tab 05/24/18 07/19/18 venlafaxine 150 mg PO DAILY #30 cap 05/24/18 07/19/18 carisoprodol [Soma] 350 mg PO TID #15 tab 06/14/18 07/19/18 lidocaine [Lidoderm] 2 patch TOPICAL DAILY #1 pkg 06/14/18 07/19/18 Narcan 1 spray EZIO ONCE PRN #2 each 06/28/18 07/19/18 multivitamin [Multiple Vitamins] 1 tab PO DAILY #0 tab 06/28/18 07/19/18 oxazepam 15 mg PO TID #9 cap 06/28/18 07/19/18 sucralfate 1 g PO AC & HS #0 tab 06/28/18 07/19/18 chlordiazepoxide HCl See Rx Instructions .ROUTE 07/08/18 07/19/18 .COMPLEX #30 cap amlodipine 10 mg PO DAILY #14 tab 08/11/18 carvedilol [Coreg] 6.25 mg PO BID #28 tab 08/11/18 cholecalciferol (vitamin D3) 2,000 units PO DAILY #14 tab 08/11/18 cyanocobalamin (vitamin B-12) 1,000 mcg PO DAILY #14 tab 08/11/18 [Vitamin B-12] folic acid 1 mg PO DAILY #14 tab 08/11/18 losartan 100 mg PO DAILY #14 tab 08/11/18 magnesium oxide 400 mg PO TID #14 tab 08/11/18 potassium chloride 20 meq PO BID #14 tab-cap 08/11/18 spironolactone 50 mg PO DAILY #14 tab 08/11/18 thiamine mononitrate (vit B1) 100 mg PO QAM #14 tab 08/11/18 [Vitamin B-1 (mononitrate)] Previous Rx's Medication Instructions Recorded naltrexone 50 mg PO DAILY #30 tab-cap 11/04/17 pyridoxine (vitamin B6) [Vitamin 50 mg PO nightly #60 cap 11/04/17 B-6] venlafaxine 37.5 mg PO DAILY #90 tab-cap 11/04/17 ondansetron HCl 4 mg PO Q6H PRN PRN #15 tab-cap 12/21/17 acetaminophen [Mapap Extra 500 mg PO Q6H tab 04/17/18 Strength] polyethylene glycol 3350 17 gm PO DAILY PRN PRN packet 04/17/18 tramadol 50 mg PO Q6H PRN PRN tab 04/17/18 pantoprazole 40 mg PO BID@0730,2000 #60 tab 05/24/18 ranitidine HCl 150 mg PO BID #60 tab 05/24/18 venlafaxine 150 mg PO DAILY #30 cap 05/24/18 carisoprodol [Soma] 350 mg PO TID #15 tab 06/14/18 lidocaine [Lidoderm] 2 patch TOPICAL DAILY #1 pkg 06/14/18 Narcan 1 spray EZIO ONCE PRN #2 each 06/28/18 multivitamin [Multiple Vitamins] 1 tab PO DAILY #0 tab 06/28/18 oxazepam 15 mg PO TID #9 cap 06/28/18 sucralfate 1 g PO AC & HS #0 tab 06/28/18 chlordiazepoxide HCl See Rx Instructions .ROUTE 07/08/18 .COMPLEX #30 cap amlodipine 10 mg PO DAILY #14 tab 08/11/18 carvedilol [Coreg] 6.25 mg PO BID #28 tab 08/11/18 cholecalciferol (vitamin D3) 2,000 units PO DAILY #14 tab 08/11/18 cyanocobalamin (vitamin B-12) 1,000 mcg PO DAILY #14 tab 08/11/18 [Vitamin B-12] folic acid 1 mg PO DAILY #14 tab 08/11/18 losartan 100 mg PO DAILY #14 tab 08/11/18 magnesium oxide 400 mg PO TID #14 tab 08/11/18 potassium chloride 20 meq PO BID #14 tab-cap 08/11/18 spironolactone 50 mg PO DAILY #14 tab 08/11/18 thiamine mononitrate (vit B1) 100 mg PO QAM #14 tab 08/11/18 [Vitamin B-1 (mononitrate)] Allergies Allergy/AdvReac Type Severity Reaction Status Date / Time Penicillins Allergy Mild Rash Unverified 08/11/18 14:31 ramipril Allergy Unknown ITCHING Unverified 08/11/18 14:31 meperidine [From Demerol] AdvReac Severe Nausea Unverified 08/11/18 14:31 bupropion AdvReac Mild GI upset Unverified 08/11/18 14:31 AMBER Inhibitors AdvReac Unknown COUGH Unverified 08/11/18 14:31 alendronate sodium AdvReac Unknown GI Distress Unverified 08/11/18 14:31 clarithromycin AdvReac Unknown intolerant Unverified 08/11/18 14:31 paroxetine AdvReac Unknown Diarrhea Unverified 08/11/18 14:31 General Stated Complaint: EyeProblem JORDAN: 3 Review of Systems Review of Systems All systems reviewed & are unremarkable except as noted in HPI and below Constitutional Denies chills, Denies fever(s) and Denies weakness ENT Denies change in voice Cardiovascular Denies chest pain and Denies dyspnea Respiratory Denies dyspnea Gastrointestinal Denies abdominal pain, Denies nausea and Denies vomiting Genitourinary Denies dysuria Musculoskeletal Denies joint swelling Integumentary/Breasts Denies rash Neurologic Denies weakness Psychiatric Denies depression Endocrine Denies heat intolerance [facility] Medical History Chronic alcoholic gastritis (Chronic 10/12/17) Urinary incontinence (Chronic) Tubular adenoma of colon (Chronic 01/28/17) Sciatica (Chronic) 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) Osteopenia (Chronic) Osteoarthritis (Chronic 03/29/14) Non-cardiac chest pain (Chronic 09/21/16) Macrocytosis (Chronic 09/26/14) Hyperlipidemia (Chronic 02/23/13) Genital herpes simplex (Chronic) GI bleed (Chronic 12/20/16) Elev transaminase/LDH (Chronic) Cervical radicular pain (Chronic) Cataract (Chronic 11/07/15) Anemia (Chronic 12/20/16) Allergic rhinitis (Chronic) Alcohol abuse (Chronic) Alcoholic ketosis (Resolved) Alcohol abuse (Chronic) Hypertension (Acute) Hyperlipidemia (Chronic) Back pain, chronic (Chronic) Depression (Chronic) Osteoarthritis (Chronic) Osteopenia (Chronic) Urinary incontinence (Chronic) 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) Headache (Chronic) Gastritis (Chronic) Wernicke encephalopathy (Chronic) GERD (gastroesophageal reflux disease) (Chronic) Falling (Chronic) Right rib fracture (Acute) Alcohol dependence (Chronic) Anemia (Chronic) Alcohol abuse Depression Essential hypertension Hyperlipidemia Osteoarthritis Sciatica Urinary incontinence Social History Smoking/Tobacco Use Status: Former Tobacco Use Exam Const General: no acute distress Orientation: alert [facility] Head: normal to inspection Ears: external ears normal General nose exam: external nose normal Mouth: moist mucous membranes Eyes Periorbital: periorbital findings normal Eyelids: eyelids normal Neck Neck: normal visual inspection Resp Effort & Inspection: normal respiratory effort and able to speak in complete sentences Cardio Rate: regular rate Skin General skin exam: no rashes or lesions noted Neuro General: alert and oriented x3 Extrem General: normal to inspection Psych Mental Status: mental status grossly normal Course Vital Signs Temperature 36.6 C 08/22/18 08:05 Pulse 113 H 08/22/18 08:05 Respiratory Rate 18 08/22/18 08:05 Blood Pressure 171/86 H 08/22/18 08:05 Pulse Oximetry 100 08/22/18 08:05 Temperature 36.6 C 08/22/18 08:05 Temperature Source Temporal Artery Scan 08/22/18 08:05 Pulse 113 H 08/22/18 08:05 Respiratory Rate 18 08/22/18 08:05 Respiratory Effort 08/22/18 08:08 Blood Pressure 171/86 H 08/22/18 08:05 Blood Pressure Position Sitting 08/22/18 08:05 Pulse Oximetry 100 08/22/18 08:05 Oxygen Delivery Method Room Air 08/22/18 08:05 Oxygen Flow Rate 0 08/22/18 08:05 Pain Level 10 08/22/18 08:05
[2018-08-22] MEDS: Erythromycin Ophth Oint 3.5 GM TUBE OP (08:40)
[2018-08-22] MEDS: Fluorescein STRIPS 100/BOX 1 MG OP (08:40)
== END 2018-08-22 09:25 | disposition home or self-care (01) ==
LOC: ER 09:26
PROVIDERS: Emergency Provider Emergency Medicine; PCP Family Medicine
DX: H16.001 Unspecified corneal ulcer, right eye (principal); I10 Essential (primary) hypertension
CPT/HCPCS: 99283; 99282

== ENCOUNTER 2018-09-24 14:13 | Emergency (ER) | payer OTHER, SELFPAY ==
[2018-09-24] VITALS (41 sets, daily range): BP systolic 156–214; BP diastolic 81–100; PULSE 102–130; RESP 15–38; TEMP 36.5; O2SAT 89–100
--- NOTE | 2018-09-24 14:38 | ED.GENADUL_ITS ---
Discharge Plan Disposition Patient Disposition: HOME Condition: Stable Discharge Details Chief Complaint: Nausea/Vomit/Diar Clinical Impression: Gastritis Primary Care Provider: Lavelle Galindo ED Provider: Moose Lafleur Home Meds and New Rx's Prescriptions: No Action valacyclovir 500 mg tablet 1,000 mg PO QAM RF: 0 prednisolone acetate 1 % drops,suspension 1 drp OP QID RF: 0 fluticasone 16 GM spray,suspension 1 spr NS daily prn Qty: 3 RF: 3 naltrexone 50 MG tablet 50 mg PO DAILY Qty: 30 RF: 2 pyridoxine (vitamin B6) [Vitamin B-6] 50 MG tablet 50 mg PO nightly Qty: 60 RF: 4 cyanocobalamin (vitamin B-12) 1,000 mcg capsule 2,000 mcg PO DAILY RF: 0 gabapentin 300 mg capsule 300 mg PO BID RF: 0 magnesium oxide 400 mg (241.3 mg magnesium) tablet 400 mg PO BID RF: 0 venlafaxine 37.5 mg tablet 112.5 mg PO DAILY RF: 0 erythromycin ophthalmic oint ointment OD QID RF: 0 polyethylene glycol 3350 17 GM powder in packet 17 gm PO DAILY PRN PRN (Reason: Constipation) RF: 0 acetaminophen [Mapap Extra Strength] 500 MG tablet 500 mg PO Q6H RF: 0 ranitidine HCl 150 mg Tablet 150 mg PO BID Qty: 60 RF: 0 losartan 50 mg Tablet 100 mg PO DAILY Qty: 14 RF: 0 amlodipine 10 mg Tablet 10 mg PO DAILY Qty: 14 RF: 0 folic acid 1 mg Tablet 1 mg PO DAILY Qty: 14 RF: 0 cholecalciferol (vitamin D3) 1,000 unit Tablet 2,000 units PO DAILY Qty: 14 RF: 0 thiamine mononitrate (vit B1) [Vitamin B-1 (mononitrate)] 100 mg Tablet 100 mg PO QAM Qty: 14 RF: 0 multivitamin [Multiple Vitamins] Tablet 1 tab PO DAILY Qty: 0 RF: 0 Narcan 4 mg/actuation spray,non-aerosol 1 spray EZIO ONCE PRN (Reason: opioid overdose) Qty: 2 RF: 0 Medical Decision Making 73-year-old feet the first the night of nausea and vomiting this morning with associated abdominal cramping. She is quite anxious on arrival and hypertensive. She has a history of alcoholic gastritis, states she has recently been abstinent due to admission to [facility] for hypertensive emergency on September 12 and outpatient ophthalmology consultation for right eye entropion repair. IV placed, labs obtained, patient given fluids and antiemetic. White blood cell count 9, hematocrit stable, platelets 343; chemistries notable for depressed carbon dioxide and positive anion gap with elevated BUN and creatinine. Troponin and lipase are unremarkable. Following 2 L of fluid, chemistries rechecked and anion gap closed and essentially normal. Given the patient's history of gastritis, this may represent some form of cyclic vomiting. She is improving with supportive care. Initial blood pressure is 214/99, rechecked at 157/81 after fluids. She prefers to be discharged to home which I feel is reasonable. She will return for any acute concerns, otherwise continue all regular medications. Lab Data Lab results reviewed: Yes I reviewed the patient's lab results. Laboratory Tests Range/Units 09/24/18 09/24/18 14:44 14:44 WBC (4.4-10.8) k/cumm 9.24 RBC (4.00-5.20) m/cumm 3.85 L Hgb (12.0-15.5) g/dL 11.8 L Hct (36.0-46.0) % 35.1 L MCV (80-95) fL 91.2 MCH (27.0-33.0) pg 30.6 MCHC (32.0-36.0) g/dL 33.6 RDW (11.7-14.6) % 16.7 H Plt Count (130-400) x1000/uL 343 MPV (8.0-11.0) fL 9.6 Immature Gran % 0.1 Neutrophils % 90.5 Lymphocytes % 6.0 Monocytes % 3.2 Eosinophils % 0.1 Basophils % 0.1 Absolute Neutrophils (1.2-6.7) k/cumm 8.36 H Absolute Lymphocytes (1.2-3.4) k/cumm 0.55 L Absolute Monocytes (0.11-0.7) k/cumm 0.30 Absolute Eosinophils (0.0-0.7) k/cumm 0.01 Absolute Basophils (0.0-0.2) k/cumm 0.01 Sodium (136-145) mmol/L 137 Potassium (3.5-5.1) mmol/L 3.4 L Chloride (98-107) mmol/L 97 L Carbon Dioxide (21.0-32.0) mmol/L 18.9 L Anion Gap (3-11) mmol/L 21.1 H BUN (7-18) mg/dL 20 H Creatinine (0.55-1.02) mg/dL 1.23 H Estimated GFR/1.73 m2 (mL/min/1.73m2) 42.92 Glucose (70-100) mg/dL 237 H Calcium (8.5-10.1) mg/dL 11.0 H Magnesium (1.8-2.4) mg/dL 1.5 L Total Bilirubin (0.2-1.0) mg/dL 1.3 H AST (15-37) U/L 30 ALT (12-78) U/L 39 Alkaline Phosphatase (46-116) U/L 115 Troponin I (0.00-0.06) ng/mL < 0.02 Total Protein (6.4-8.2) g/dL 8.0 Albumin (3.4-5.0) g/dL 4.1 Lipase (73-393) U/L 114 Ethyl Alcohol (<3) mg/dL < 3.0 Laboratory Results - last 24 hr 09/24/18 14:44 WBC 9.24 RBC 3.85 L Hgb 11.8 L Hct 35.1 L MCV 91.2 MCH 30.6 MCHC 33.6 RDW 16.7 H Plt Count 343 MPV 9.6 Immature Gran % 0.1 Neutrophils % 90.5 Lymphocytes % 6.0 Monocytes % 3.2 Eosinophils % 0.1 Basophils % 0.1 Absolute Neutrophils 8.36 H Absolute Lymphocytes 0.55 L Absolute Monocytes 0.30 Absolute Eosinophils 0.01 Absolute Basophils 0.01 ECG Data Attestation: I personally reviewed and interpreted this ECG (s) as follows: Interpretation: Sinus tachycardia, rate of 110, the QRS is narrow, no ST segment elevation HPI General Mode of arrival: wheelchair . Date/Time Provider Initiated Documentation: 09/24/18 14:14 . Limitations to Documentation: no limitations . Information obtained by: patient . History of Present Illness 73 year old F presents to the emergency department with the chief complaint of Nausea and vomiting beginning this morning. No headache, described as moderate, Quality is described as dull, and is localized to the abdomen. Patient reports no radiation. Patient started experiencing this hour(s) and it has b een constant. No relieving factors improve symptom(s), No exacerbating factors reported . Patient notes loss of appetite; denies chest pain and fever/chills. Patient did receive the following treatments prior to arrival, none Related Data Home Medications Medication Instructions Recorded Confirmed fluticasone 1 spr NS daily prn #3 bottle 09/03/16 09/24/18 naltrexone 50 mg PO DAILY #30 tab-cap 11/04/17 09/24/18 pyridoxine (vitamin B6) [Vitamin 50 mg PO nightly #60 cap 11/04/17 09/22/18 B-6] acetaminophen [Mapap Extra 500 mg PO Q6H tab 04/17/18 09/24/18 Strength] polyethylene glycol 3350 17 gm PO DAILY PRN PRN packet 04/17/18 09/24/18 ranitidine HCl 150 mg PO BID #60 tab 05/24/18 09/22/18 Narcan 1 spray EZIO ONCE PRN #2 each 06/28/18 09/24/18 multivitamin [Multiple Vitamins] 1 tab PO DAILY #0 tab 06/28/18 09/24/18 amlodipine 10 mg PO DAILY #14 tab 08/11/18 09/24/18 cholecalciferol (vitamin D3) 2,000 units PO DAILY #14 tab 08/11/18 09/24/18 folic acid 1 mg PO DAILY #14 tab 08/11/18 09/24/18 losartan 100 mg PO DAILY #14 tab 08/11/18 09/24/18 thiamine mononitrate (vit B1) 100 mg PO QAM #14 tab 08/11/18 09/22/18 [Vitamin B-1 (mononitrate)] cyanocobalamin (vitamin B-12) 2,000 mcg PO DAILY cap 09/22/18 09/24/18 1,000 mcg capsule erythromycin ophthalmic oint OD QID 09/22/18 gabapentin 300 mg capsule 300 mg PO BID 09/22/18 09/24/18 magnesium oxide 400 mg (241.3 mg 400 mg PO BID tab 09/22/18 09/24/18 magnesium) tablet prednisolone acetate 1 % eye 1 drp OP QID 09/22/18 09/22/18 drops,suspension valacyclovir 500 mg tablet 1,000 mg PO QAM tab 09/22/18 09/22/18 venlafaxine 37.5 mg tablet 112.5 mg PO DAILY tab 09/22/18 Previous Rx's Medication Instructions Recorded naltrexone 50 mg PO DAILY #30 tab-cap 11/04/17 pyridoxine (vitamin B6) [Vitamin 50 mg PO nightly #60 cap 11/04/17 B-6] acetaminophen [Mapap Extra 500 mg PO Q6H tab 04/17/18 Strength] polyethylene glycol 3350 17 gm PO DAILY PRN PRN packet 04/17/18 ranitidine HCl 150 mg PO BID #60 tab 05/24/18 Narcan 1 spray EZIO ONCE PRN #2 each 06/28/18 multivitamin [Multiple Vitamins] 1 tab PO DAILY #0 tab 06/28/18 amlodipine 10 mg PO DAILY #14 tab 08/11/18 cholecalciferol (vitamin D3) 2,000 units PO DAILY #14 tab 08/11/18 folic acid 1 mg PO DAILY #14 tab 08/11/18 losartan 100 mg PO DAILY #14 tab 08/11/18 thiamine mononitrate (vit B1) 100 mg PO QAM #14 tab 08/11/18 [Vitamin B-1 (mononitrate)] Allergies Allergy/AdvReac Type Severity Reaction Status Date / Time Penicillins Allergy Mild Rash Unverified 09/24/18 15:27 ramipril Allergy Unknown ITCHING Unverified 09/24/18 15:27 meperidine [From Demerol] AdvReac Severe Nausea Unverified 09/24/18 15:27 bupropion AdvReac Mild GI upset Unverified 09/24/18 15:27 AMBER Inhibitors AdvReac Unknown COUGH Unverified 09/24/18 15:27 alendronate sodium AdvReac Unknown GI Distress Unverified 09/24/18 15:27 clarithromycin AdvReac Unknown intolerant Unverified 09/24/18 15:27 paroxetine AdvReac Unknown Diarrhea Unverified 09/24/18 15:27 General Stated Complaint: Nausea/Vomit/Diar JORDAN: 2 Review of Systems Review of Systems Patient has recently had right eye surgery at [facility]. She has follow-up established for this on Tuesday. She has had some visual changes that are unchanged. Denies headache, fever, chest pain 6 systems reviewed and otherwise negative [facility] Medical History Chronic alcoholic gastritis (Chronic 10/12/17) Urinary incontinence (Chronic) Tubular adenoma of colon (Chronic 01/28/17) Sciatica (Chronic) 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) Osteopenia (Chronic) Osteoarthritis (Chronic 03/29/14) Non-cardiac chest pain (Chronic 09/21/16) Macrocytosis (Chronic 09/26/14) Hyperlipidemia (Chronic 02/23/13) Genital herpes simplex (Chronic) GI bleed (Chronic 12/20/16) Elev transaminase/LDH (Chronic) Cervical radicular pain (Chronic) Cataract (Chronic 11/07/15) Anemia (Chronic 12/20/16) Allergic rhinitis (Chronic) Alcohol abuse (Chronic) Alcoholic ketosis (Resolved) Alcohol abuse (Chronic) Hypertension (Acute) Hyperlipidemia (Chronic) Back pain, chronic (Chronic) Depression (Chronic) Osteoarthritis (Chronic) Osteopenia (Chronic) Urinary incontinence (Chronic) 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 Anxious. HEAD: Normocephalic, atraumatic ENT: Mucous membranes moist, oropharynx unremarkable, External ear exam unremarkable EYES: EOMI NECK: Full ROM, no CANDY, no menigismus CHEST/RESP: Nontender, clear to auscultation bilateral, no wheeze/rhonchi/rales CARDIOVASCULAR: Regular, tachycardic, no murmur, rub shirin. 2+ Rad pulse bilateral ABDOMEN: Soft, nontender, no mass. +Bowel sounds EXT: Full ROM, no edema, no rash Neuro: Grossly normal neurologic exam, conversant, interactive. Psych: Speech fluent, thoughts congruent, affect normal Course Vital Signs Temperature 36.5 C 09/24/18 14:27 Pulse 126 H 09/24/18 14:27 Respiratory Rate 22 09/24/18 14:27 Blood Pressure 214/99 H 09/24/18 14:27 Pulse Oximetry 99 09/24/18 14:27 Temperature 36.5 C 09/24/18 14:27 Temperature Source Temporal Artery Scan 09/24/18 14:27 Pulse 126 H 09/24/18 14:27 Respiratory Rate 22 09/24/18 14:27 Blood Pressure 214/99 H 09/24/18 14:27 Blood Pressure Position Supine 09/24/18 14:27 Pulse Oximetry 99 09/24/18 14:27 Oxygen Delivery Method Room Air 09/24/18 14:27 Oxygen Flow Rate 0 09/24/18 14:27 Pain Level 6 09/24/18 14:27
[2018-09-24] MEDS: Ondansetron 4 MG/2 ML VIAL IVP (14:45)
[2018-09-24] MEDS: Lactated Ringers 1,000 ML 1000 ML IV ×2 (14:46→16:01)
[2018-09-24] MEDS: LORazepam 2 MG/ML VIAL 1 MG IVP (14:46)
[2018-09-24] MEDS: Pantoprazole 40 MG VIAL IVP (14:50)
[2018-09-24 14:55] LABS: Abs Immature Grans 0.01 k/cumm (0.0-0.09); Absolute Basophil Count 0.01 k/cumm (0.0-0.2); Absolute Eosinophil Count 0.01 k/cumm (0.0-0.7); Absolute Lymphocyte Count 0.55 k/cumm (1.2-3.4); Absolute Neutrophil Count 8.36 k/cumm (1.2-6.7); Basophils % 0.1; Eosinophils % 0.1; HCT 35.1 % (36.0-46.0); HGB 11.8 g/dL (12.0-15.5); Immature Grans % 0.1; Mean Corp. HGB Concentration 33.6 g/dL (32.0-36.0); Mean Corpuscular Hemoglobin 30.6 pg (27.0-33.0); Mean Corpuscular Volume 91.2 fL (80-95); Mean Platelet Volume 9.6 fL (8.0-11.0); Monocytes % 3.2; Neutrophils % 90.5; Platelet Count 343 x1000/uL (130-400); RBC 3.85 m/cumm (4.00-5.20); RBC Distribution Width 16.7 % (11.7-14.6); White Blood Cell Count 9.24 k/cumm (4.4-10.8)
[2018-09-24 15:10] LABS: ALT 39 U/L (12-78); AST 30 U/L (15-37); Albumin 4.1 g/dL (3.4-5.0); Alkaline Phosphatase 115 U/L (46-116); Anion Gap 21.1 mmol/L (3-11); BUN 20 mg/dL (7-18); Bilirubin, Total 1.3 mg/dL (0.2-1.0); CO2 18.9 mmol/L (21.0-32.0); CREATININE 1.23 mg/dL (0.55-1.02); Chloride 97 mmol/L (98-107); Estimated GFR 42.92 (mL/min/1.73m2); Glucose 237 mg/dL (70-100); Lipase 114 U/L (73-393); Magnesium 1.5 mg/dL (1.8-2.4); Potassium 3.4 mmol/L (3.5-5.1); Sodium 137 mmol/L (136-145)
[2018-09-24 15:17] LABS: Troponin I < 0.02 ng/mL (0.00-0.06)
[2018-09-24 15:35] LABS: ETHANOL BLOOD < 3.0 mg/dL (<3)
[2018-09-24 17:25] LABS: Anion Gap 10.9 mmol/L (3-11); BUN 17 mg/dL (7-18); CO2 27.1 mmol/L (21.0-32.0); CREATININE 0.99 mg/dL (0.55-1.02); Chloride 101 mmol/L (98-107); Estimated GFR 55.14 (mL/min/1.73m2); Glucose 145 mg/dL (70-100); Potassium 3.8 mmol/L (3.5-5.1); Sodium 139 mmol/L (136-145)
[2018-09-24 17:34] LABS: Calcium 9.7 mg/dL (8.5-10.1)
--- NOTE | 2018-09-24 18:14 | NUR.NOTE ---
pt states that she is incontinent on a regular basis. pt whet bed estimated output 500+ ml was ambulated to the bathroom unassisted Nursing Note:
== END 2018-09-24 18:29 | disposition home or self-care (01) ==
PROVIDERS: Emergency Provider Emergency Medicine; PCP Family Medicine
DX: K52.9 Noninfective gastroenteritis and colitis, unspecified (principal); I10 Essential (primary) hypertension
CPT/HCPCS: 36415; 80048; 80053; 83690; 96361; 96374; 96375; 99284; 80320; 83735; 84484; 85025; J2060; J2405

== ENCOUNTER 2018-10-01 08:21 | Emergency (ER) | payer OTHER, SELFPAY ==
[2018-10-01] VITALS (26 sets, daily range): BP systolic 133–195; BP diastolic 74–114; PULSE 95–121; RESP 14–27; TEMP 37.4–37.6; O2SAT 94–100
--- NOTE | 2018-10-01 08:33 | ED.GENADUL_ITS ---
Discharge Plan Disposition Patient Disposition: HOME Condition: Improving Discharge Details Chief Complaint: Nausea/Vomit/Diar Clinical Impression: Gastritis, Nausea and vomiting in adult Reason For Visit: LUÍS Primary Care Provider: Lavelle Galindo ED Provider: Moose Lafleur Home Meds and New Rx's Prescriptions: Continued valacyclovir 500 mg tablet 1,000 mg PO QAM RF: 0 prednisolone acetate 1 % drops,suspension 1 drp OP QID RF: 0 fluticasone 16 GM spray,suspension 1 spr NS daily prn Qty: 3 RF: 3 naltrexone 50 MG tablet 50 mg PO DAILY Qty: 30 RF: 2 pyridoxine (vitamin B6) [Vitamin B-6] 50 MG tablet 50 mg PO nightly Qty: 60 RF: 4 cyanocobalamin (vitamin B-12) 1,000 mcg capsule 2,000 mcg PO DAILY RF: 0 gabapentin 300 mg capsule 300 mg PO BID RF: 0 magnesium oxide 400 mg (241.3 mg magnesium) tablet 400 mg PO BID RF: 0 venlafaxine 37.5 mg tablet 112.5 mg PO DAILY RF: 0 erythromycin ophthalmic oint ointment OD QID RF: 0 polyethylene glycol 3350 17 GM powder in packet 17 gm PO DAILY PRN PRN (Reason: Constipation) RF: 0 acetaminophen [Mapap Extra Strength] 500 MG tablet 500 mg PO Q6H RF: 0 ranitidine HCl 150 mg Tablet 150 mg PO BID Qty: 60 RF: 0 losartan 50 mg Tablet 100 mg PO DAILY Qty: 14 RF: 0 amlodipine 10 mg Tablet 10 mg PO DAILY Qty: 14 RF: 0 folic acid 1 mg Tablet 1 mg PO DAILY Qty: 14 RF: 0 cholecalciferol (vitamin D3) 1,000 unit Tablet 2,000 units PO DAILY Qty: 14 RF: 0 thiamine mononitrate (vit B1) [Vitamin B-1 (mononitrate)] 100 mg Tablet 100 mg PO QAM Qty: 14 RF: 0 multivitamin [Multiple Vitamins] Tablet 1 tab PO DAILY Qty: 0 RF: 0 Narcan 4 mg/actuation spray,non-aerosol 1 spray EZIO ONCE PRN (Reason: opioid overdose) Qty: 2 RF: 0 Discharge Instructions Instructions: Acute Nausea and Vomiting (ED) Additional Instructions: Home to rest today. Small, frequent sips of fluids to maintain hydration. Follow-up with regular doctor this week for recheck. Return for any acute concerns including the development of fever, chest pain, persistent vomiting. Medical Decision Making 73-year-old female presents from home via EMS complaining of hours of nausea and vomiting, unable to take her regular medications this morning. She has had similar episodes in the past. She has a history of recurrent gastritis as well as alcohol abuse; states she has recently been abstinent due to admission to [facility] for hypertensive emergency on September 12 and outpatient ophthalmology consultation for right eye entropion repair. She has had known vision loss right eye as well. She arrives hypertensive, slightly tachycardic holding an emesis bag. Given IV fluids and Phenergan. Patient's laboratories are reassuring with a white blood cell count of 5, discrete anion gap but otherwise reassuring chemistries. Following initiation of fluids and antiemetic, patient was ambulatory, requesting p.o. she tolerated liquids and solids well without difficulty, subjectively felt better and requested discharge home. I discussed with her home management as well as return precautions. She stable and appropriate for outpatient management at this time. She will follow up with PMD Lab Data Lab results reviewed: Yes I reviewed the patient's lab results. Laboratory Results - last 24 hr 10/01/18 10/01/18 10/01/18 08:35 08:35 08:35 WBC 5.77 RBC 3.70 L Hgb 11.2 L Hct 34.8 L MCV 94.1 MCH 30.3 MCHC 32.2 RDW 17.2 H Plt Count 285 MPV 8.9 Immature Gran % 0.0 Neutrophils % 83.8 Lymphocytes % 10.6 Monocytes % 5.2 Eosinophils % 0.2 Basophils % 0.2 Absolute Neutrophils 4.84 Absolute Lymphocytes 0.61 L Absolute Monocytes 0.30 Absolute Eosinophils 0.01 Absolute Basophils 0.01 Sodium 141 Potassium 3.7 Chloride 101 Carbon Dioxide 26.5 Anion Gap 13.5 H BUN 16 Creatinine 1.07 H Estimated GFR/1.73 m2 50.41 Glucose 147 H Calcium 10.1 Total Bilirubin 1.0 AST 20 ALT 27 Alkaline Phosphatase 105 Total Protein 7.5 Albumin 3.7 Lipase 109 Ethyl Alcohol < 3.0 HPI General Mode of arrival: EMS . Date/Time Provider Initiated Documentation: 10/01/18 10:17 . Limitations to Documentation: no limitations . Information obtained by: patient . History of Present Illness 73 year old F presents to the emergency department with the chief complaint of Nausea and vomiting since this morning. Unable to take medications, described as moderate and similar to prior episodes, Quality is described as dull and constant, and is localized to the abdomen. Patient reports no radiation. Patient started experiencing this hour(s) and it has been constant. No relieving factors improve symptom(s), No exacerbating factors reported . Patient notes loss of appetite and nausea/vomiting; denies fever/chills. Patient did receive the following treatments prior to arrival, other (IV attempted by EMS) Related Data Home Medications Medication Instructions Recorded Confirmed fluticasone 1 spr NS daily prn #3 bottle 09/03/16 09/24/18 naltrexone 50 mg PO DAILY #30 tab-cap 11/04/17 09/24/18 pyridoxine (vitamin B6) [Vitamin 50 mg PO nightly #60 cap 11/04/17 09/22/18 B-6] acetaminophen [Mapap Extra 500 mg PO Q6H tab 04/17/18 09/24/18 Strength] polyethylene glycol 3350 17 gm PO DAILY PRN PRN packet 04/17/18 09/24/18 ranitidine HCl 150 mg PO BID #60 tab 05/24/18 09/22/18 Narcan 1 spray EZIO ONCE PRN #2 each 06/28/18 09/24/18 multivitamin [Multiple Vitamins] 1 tab PO DAILY #0 tab 06/28/18 09/24/18 amlodipine 10 mg PO DAILY #14 tab 08/11/18 09/24/18 cholecalciferol (vitamin D3) 2,000 units PO DAILY #14 tab 08/11/18 09/24/18 folic acid 1 mg PO DAILY #14 tab 08/11/18 09/24/18 losartan 100 mg PO DAILY #14 tab 08/11/18 09/24/18 thiamine mononitrate (vit B1) 100 mg PO QAM #14 tab 08/11/18 09/22/18 [Vitamin B-1 (mononitrate)] cyanocobalamin (vitamin B-12) 2,000 mcg PO DAILY cap 09/22/18 09/24/18 1,000 mcg capsule erythromycin ophthalmic oint OD QID 09/22/18 gabapentin 300 mg capsule 300 mg PO BID 09/22/18 09/24/18 magnesium oxide 400 mg (241.3 mg 400 mg PO BID tab 09/22/18 09/24/18 magnesium) tablet prednisolone acetate 1 % eye 1 drp OP QID 09/22/18 09/22/18 drops,suspension valacyclovir 500 mg tablet 1,000 mg PO QAM tab 09/22/18 09/22/18 venlafaxine 37.5 mg tablet 112.5 mg PO DAILY tab 09/22/18 Previous Rx's Medication Instructions Recorded naltrexone 50 mg PO DAILY #30 tab-cap 11/04/17 pyridoxine (vitamin B6) [Vitamin 50 mg PO nightly #60 cap 11/04/17 B-6] acetaminophen [Mapap Extra 500 mg PO Q6H tab 04/17/18 Strength] polyethylene glycol 3350 17 gm PO DAILY PRN PRN packet 04/17/18 ranitidine HCl 150 mg PO BID #60 tab 05/24/18 Narcan 1 spray EZIO ONCE PRN #2 each 06/28/18 multivitamin [Multiple Vitamins] 1 tab PO DAILY #0 tab 06/28/18 amlodipine 10 mg PO DAILY #14 tab 08/11/18 cholecalciferol (vitamin D3) 2,000 units PO DAILY #14 tab 08/11/18 folic acid 1 mg PO DAILY #14 tab 08/11/18 losartan 100 mg PO DAILY #14 tab 08/11/18 thiamine mononitrate (vit B1) 100 mg PO QAM #14 tab 08/11/18 [Vitamin B-1 (mononitrate)] Allergies Allergy/AdvReac Type Severity Reaction Status Date / Time Penicillins Allergy Mild Rash Unverified 09/24/18 15:27 ramipril Allergy Unknown ITCHING Unverified 09/24/18 15:27 meperidine [From Demerol] AdvReac Severe Nausea Unverified 09/24/18 15:27 bupropion AdvReac Mild GI upset Unverified 09/24/18 15:27 AMBER Inhibitors AdvReac Unknown COUGH Unverified 09/24/18 15:27 alendronate sodium AdvReac Unknown GI Distress Unverified 09/24/18 15:27 clarithromycin AdvReac Unknown intolerant Unverified 09/24/18 15:27 paroxetine AdvReac Unknown Diarrhea Unverified 09/24/18 15:27 General Stated Complaint: Nausea/Vomit/Diar JORDAN: 3 Review of Systems Review of Systems 8 systems reviewed and otherwise neg PFSH Social History Smoking/Tobacco Use Status: Former Tobacco Use Exam Narrative Exam Narrative: GEN: awake, alert, oriented 3. Pleasant, poorly groomed, interactive. But anxious HEAD: Normocephalic, atraumatic ENT: Mucous membranes moist, oropharynx unremarkable, External ear exam unremarkable EYES: PERRL, EOMI NECK: Full ROM, no CANDY, no menigismus CHEST/RESP: Nontender, clear to auscultation bilateral, no wheeze/rhonchi/rales CARDIOVASCULAR: Tachycardic, no murmur, rub shirin. 2+ Rad pulse bilateral ABDOMEN: Soft, slight distention, mild diffuse tenderness without rebound, no mass. +Bowel sounds EXT: Full ROM, no edema, no rash Neuro: Grossly normal neurologic exam, conversant, interactive. Psych: Speech fluent, thoughts congruent, affect anxious Course Vital Signs Temperature 37.6 C H 10/01/18 08:26 Pulse 110 H 10/01/18 08:26 Respiratory Rate 10/01/18 08:26 Blood Pressure 195/85 H 10/01/18 08:26 Pulse Oximetry 99 10/01/18 08:26 Temperature 37.6 C H 10/01/18 08:26 Temperature Source Temporal Artery Scan 10/01/18 08:26 Pulse 110 H 10/01/18 08:26 Respiratory Rate 19 10/01/18 08:26 Respiratory Effort Non-Labored 10/01/18 08:28 Blood Pressure 195/85 H 10/01/18 08:26 Blood Pressure Position Supine 10/01/18 08:26 Pulse Oximetry 99 10/01/18 08:26 Oxygen Delivery Method Room Air 10/01/18 08:26 Oxygen Flow Rate 0 10/01/18 08:26 Pain Level 7 10/01/18 08:26
[2018-10-01] MEDS: Lactated Ringers 1,000 ML 1000 ML IV (08:37)
[2018-10-01] MEDS: Ondansetron 4 MG/2 ML VIAL IVP (08:38)
[2018-10-01] MEDS: LORazepam 2 MG/ML VIAL 1 MG IVP (08:39)
[2018-10-01] MEDS: Pantoprazole 40 MG VIAL IVP (08:45)
[2018-10-01 08:49] LABS: Absolute Basophil Count 0.01 k/cumm (0.0-0.2); Absolute Eosinophil Count 0.01 k/cumm (0.0-0.7); Absolute Lymphocyte Count 0.61 k/cumm (1.2-3.4); Absolute Neutrophil Count 4.84 k/cumm (1.2-6.7); Basophils % 0.2; Eosinophils % 0.2; HCT 34.8 % (36.0-46.0); HGB 11.2 g/dL (12.0-15.5); Lymphocytes % 10.6; Mean Corp. HGB Concentration 32.2 g/dL (32.0-36.0); Mean Corpuscular Hemoglobin 30.3 pg (27.0-33.0); Mean Corpuscular Volume 94.1 fL (80-95); Mean Platelet Volume 8.9 fL (8.0-11.0); Monocytes % 5.2; Neutrophils % 83.8; Platelet Count 285 x1000/uL (130-400); RBC Distribution Width 17.2 % (11.7-14.6); White Blood Cell Count 5.77 k/cumm (4.4-10.8)
[2018-10-01 08:57] LABS: Lipase 109 U/L (73-393)
[2018-10-01 09:10] LABS: ALT 27 U/L (12-78); AST 20 U/L (15-37); Albumin 3.7 g/dL (3.4-5.0); Alkaline Phosphatase 105 U/L (46-116); Anion Gap 13.5 mmol/L (3-11); BUN 16 mg/dL (7-18); CO2 26.5 mmol/L (21.0-32.0); CREATININE 1.07 mg/dL (0.55-1.02); Calcium 10.1 mg/dL (8.5-10.1); Chloride 101 mmol/L (98-107); Estimated GFR 50.41 (mL/min/1.73m2); Glucose 147 mg/dL (70-100); Potassium 3.7 mmol/L (3.5-5.1); Sodium 141 mmol/L (136-145); Total Protein 7.5 g/dL (6.4-8.2)
[2018-10-01 09:24] LABS: ETHANOL BLOOD < 3.0 mg/dL (<3)
== END 2018-10-01 12:34 | disposition home or self-care (01) ==
PROVIDERS: Emergency Provider Emergency Medicine; PCP Family Medicine
DX: R11.2 Nausea with vomiting, unspecified (principal); K29.00 Acute gastritis without bleeding; F10.10 Alcohol abuse, uncomplicated; I10 Essential (primary) hypertension
CPT/HCPCS: 36415; 80053; 83690; 96361; 96374; 96375; 99284; 80320; 85025; J2060; J2405

== ENCOUNTER 2018-10-24 16:56 | Emergency (ER) | payer OTHER, SELFPAY ==
[2018-10-24] VITALS (8 sets, daily range): BP systolic 137–171; BP diastolic 67–72; PULSE 97–125; RESP 14–28; TEMP 36.6; O2SAT 88–99
--- NOTE | 2018-10-24 17:06 | ED.GENADUL_ITS ---
Discharge Plan Disposition Patient Disposition: HOME Condition: Stable Discharge Details Chief Complaint: Nausea/Vomit/Diar Clinical Impression: Nausea & vomiting Reason For Visit: LUÍS Primary Care Provider: Lavelle Galindo ED Provider: Blaze Mccarthy [place] Meds and New Rx's Prescriptions: New ondansetron 4 mg tablet,disintegrating 4 mg PO TID PRN (Reason: nausea and vomiting) 5 Days Qty: 30 RF: 0 Continued ondansetron 4 mg tablet,disintegrating 4 mg PO QID PRN (Reason: nausea and vomiting) Qty: 20 RF: 0 valacyclovir 500 mg tablet 1,000 mg PO QAM RF: 0 prednisolone acetate 1 % drops,suspension 1 drp OP QID RF: 0 fluticasone 16 GM spray,suspension 1 spr NS daily prn Qty: 3 RF: 3 naltrexone 50 MG tablet 50 mg PO DAILY Qty: 30 RF: 2 pyridoxine (vitamin B6) [Vitamin B-6] 50 MG tablet 50 mg PO nightly Qty: 60 RF: 4 cyanocobalamin (vitamin B-12) 1,000 mcg capsule 2,000 mcg PO DAILY RF: 0 gabapentin 300 mg capsule 300 mg PO BID RF: 0 magnesium oxide 400 mg (241.3 mg magnesium) tablet 400 mg PO BID RF: 0 erythromycin ophthalmic oint ointment OD QID RF: 0 venlafaxine 75 mg tablet 75 mg PO DAILY Qty: 30 RF: 3 venlafaxine 37.5 mg tablet 37.5 mg PO DAILY Qty: 30 RF: 3 polyethylene glycol 3350 17 GM powder in packet 17 gm PO DAILY PRN PRN (Reason: Constipation) RF: 0 acetaminophen [Mapap Extra Strength] 500 MG tablet 500 mg PO Q6H RF: 0 ranitidine HCl 150 mg Tablet 150 mg PO BID Qty: 60 RF: 0 losartan 50 mg Tablet 100 mg PO DAILY Qty: 14 RF: 0 amlodipine 10 mg Tablet 10 mg PO DAILY Qty: 14 RF: 0 folic acid 1 mg Tablet 1 mg PO DAILY Qty: 14 RF: 0 cholecalciferol (vitamin D3) 1,000 unit Tablet 2,000 units PO DAILY Qty: 14 RF: 0 thiamine mononitrate (vit B1) [Vitamin B-1 (mononitrate)] 100 mg Tablet 100 mg PO QAM Qty: 14 RF: 0 multivitamin [Multiple Vitamins] Tablet 1 tab PO DAILY Qty: 0 RF: 0 Narcan 4 mg/actuation spray,non-aerosol 1 spray EZIO ONCE PRN (Reason: opioid overdose) Qty: 2 RF: 0 Discharge Instructions Instructions: Acute Nausea and Vomiting (ED) Additional Instructions: follow up with your primary care provider within 1 week if you feel you are becoming more ill, or having new symptoms such as difficulty breathing or chest pain return to the emergency department Discharge Data Discharge Date/Time-TO BE ENTERED AT DEPARTURE: 10/24/18 18:57 Medical Decision Making 73 yo female with hx of alcohol abuse, states last drink yesterday, comes in with cc of n/v for about a day per pt. She states her last alcoholic drink was about 2pm yesterday and started to have nausea last night and vomit today. She denies fevers, chills, chest pain, sob, headaches, recent falls. SHe does appear tremulous on exam with HR of 120. She has no abdominal tenderness or distention on my exam so doubt sbo or other surgical pathology as the cause of her symptoms. My suspicion is she is in alcohol withdrawal given her hx and last drink being over 24 hours ago, will treat with IV benzos and also evaluate for electrolyte abnormalities and monitor. Given lack of chest pain or pressure I do not suspect acs as the cause of her symptoms and would not expect the tremulous that she is experiencing with this. Will evaluate for possible pancreatitis given her hx and also hepatitis. 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 She is tolerating PO, sleeping on repeat exam, and HR is now 100 and feels better and is requesting d/c at this time. I did recommend strongly that the pt stay and have repeat chemistries done to make sure her chemistries improve and ensure this is alcoholic ketosis and not other entities such as dka or sepsis but she is declining to stay. She has the capacity to make her own decisions and accepts risks of potential and disability. She was advised to f/u with her pcp miguel and return if she changes her mind. She still has no abdominal tenderness or distention so do not feel abdominal imaging is indicated at this time and again denies any chest pain or sob so do not feel w/u for acs indicated at this time Differential Diagnosis alcohol withdrawal, pancreatitis, gastritis, alcoholic ketosis Lab Data Lab results reviewed: Yes I reviewed the patient's lab results. HPI General Mode of arrival: EMS . Date/Time Provider Initiated Documentation: 10/24/18 17:01 . Limitations to Documentation: no limitations . Information obtained by: patient . History of Present Illness 73 year old F presents to the emergency department with the chief complaint of nausea and vomit, described as moderate, with intensity rated at 6. Patient started experiencing this day(s) (1) and it has been constant. No relieving factors improve symptom(s), No exacerbating factors reported . Patient notes denies fever/chills. Patient did receive the following treatments prior to arrival, none Related Data Home Medications Medication Instructions Recorded Confirmed fluticasone 1 spr NS daily prn #3 bottle 09/03/16 10/24/18 naltrexone 50 mg PO DAILY #30 tab-cap 11/04/17 10/24/18 pyridoxine (vitamin B6) [Vitamin 50 mg PO nightly #60 cap 11/04/17 10/24/18 B-6] acetaminophen [Mapap Extra 500 mg PO Q6H tab 04/17/18 10/24/18 Strength] polyethylene glycol 3350 17 gm PO DAILY PRN PRN packet 04/17/18 10/24/18 ranitidine HCl 150 mg PO BID #60 tab 05/24/18 10/24/18 Narcan 1 spray EZIO ONCE PRN #2 each 06/28/18 10/24/18 multivitamin [Multiple Vitamins] 1 tab PO DAILY #0 tab 06/28/18 10/24/18 amlodipine 10 mg PO DAILY #14 tab 08/11/18 10/24/18 cholecalciferol (vitamin D3) 2,000 units PO DAILY #14 tab 08/11/18 10/24/18 folic acid 1 mg PO DAILY #14 tab 08/11/18 10/24/18 losartan 100 mg PO DAILY #14 tab 08/11/18 10/24/18 thiamine mononitrate (vit B1) 100 mg PO QAM #14 tab 08/11/18 10/24/18 [Vitamin B-1 (mononitrate)] cyanocobalamin (vitamin B-12) 2,000 mcg PO DAILY cap 09/22/18 10/24/18 1,000 mcg capsule erythromycin ophthalmic oint OD QID 09/22/18 gabapentin 300 mg capsule 300 mg PO BID 09/22/18 10/24/18 magnesium oxide 400 mg (241.3 mg 400 mg PO BID tab 09/22/18 10/24/18 magnesium) tablet prednisolone acetate 1 % eye 1 drp OP QID 09/22/18 10/24/18 drops,suspension valacyclovir 500 mg tablet 1,000 mg PO QAM tab 09/22/18 10/24/18 ondansetron 4 mg disintegrating 4 mg PO QID PRN #20 tab 10/04/18 10/24/18 tablet venlafaxine 37.5 mg tablet 37.5 mg PO DAILY #30 tab 10/23/18 10/24/18 venlafaxine 75 mg tablet 75 mg PO DAILY #30 tab 10/23/18 10/24/18 ondansetron 4 mg PO TID PRN 5 Days #30 tab 10/24/18 Previous Rx's Medication Instructions Recorded naltrexone 50 mg PO DAILY #30 tab-cap 11/04/17 pyridoxine (vitamin B6) [Vitamin 50 mg PO nightly #60 cap 11/04/17 B-6] acetaminophen [Mapap Extra 500 mg PO Q6H tab 04/17/18 Strength] polyethylene glycol 3350 17 gm PO DAILY PRN PRN packet 04/17/18 ranitidine HCl 150 mg PO BID #60 tab 05/24/18 Narcan 1 spray EZIO ONCE PRN #2 each 06/28/18 multivitamin [Multiple Vitamins] 1 tab PO DAILY #0 tab 06/28/18 amlodipine 10 mg PO DAILY #14 tab 08/11/18 cholecalciferol (vitamin D3) 2,000 units PO DAILY #14 tab 08/11/18 folic acid 1 mg PO DAILY #14 tab 08/11/18 losartan 100 mg PO DAILY #14 tab 08/11/18 thiamine mononitrate (vit B1) 100 mg PO QAM #14 tab 08/11/18 [Vitamin B-1 (mononitrate)] ondansetron 4 mg disintegrating 4 mg PO QID PRN #20 tab 10/04/18 tablet venlafaxine 37.5 mg tablet 37.5 mg PO DAILY #30 tab 10/23/18 venlafaxine 75 mg tablet 75 mg PO DAILY #30 tab 10/23/18 ondansetron 4 mg PO TID PRN 5 Days #30 tab 10/24/18 Allergies Allergy/AdvReac Type Severity Reaction Status Date / Time Penicillins Allergy Mild Rash Unverified 10/24/18 17:00 ramipril Allergy Unknown ITCHING Unverified 10/24/18 17:00 meperidine [From Demerol] AdvReac Severe Nausea Unverified 10/24/18 17:00 bupropion AdvReac Mild GI upset Unverified 10/24/18 17:00 AMBER Inhibitors AdvReac Unknown COUGH Unverified 10/24/18 17:00 alendronate sodium AdvReac Unknown GI Distress Unverified 10/24/18 17:00 clarithromycin AdvReac Unknown intolerant Unverified 10/24/18 17:00 paroxetine AdvReac Unknown Diarrhea Unverified 10/24/18 17:00 General Stated Complaint: Nausea/Vomit/Diar JORDAN: 3 Review of Systems Review of Systems All systems reviewed & are unremarkable except as noted in HPI and below Constitutional Denies chills, Denies fever(s) and Denies weakness Cardiovascular Denies chest pain and Denies dyspnea Respiratory Denies cough and Denies dyspnea Gastrointestinal Denies nausea Genitourinary Denies dysuria Musculoskeletal Denies joint swelling Integumentary/Breasts Denies rash Neurologic Denies weakness Allergic/Immunologic Denies urticaria [facility] Medical History Chronic alcoholic gastritis (Chronic 10/12/17) Urinary incontinence (Chronic) Tubular adenoma of colon (Chronic 01/28/17) Sciatica (Chronic) 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) Osteopenia (Chronic) Osteoarthritis (Chronic 03/29/14) Non-cardiac chest pain (Chronic 09/21/16) Macrocytosis (Chronic 09/26/14) Hyperlipidemia (Chronic 02/23/13) Genital herpes simplex (Chronic) GI bleed (Chronic 12/20/16) Elev transaminase/LDH (Chronic) Cervical radicular pain (Chronic) Cataract (Chronic 11/07/15) Anemia (Chronic 12/20/16) Allergic rhinitis (Chronic) Alcohol abuse (Chronic) Alcoholic ketosis (Resolved) Alcohol abuse (Chronic) Hypertension (Acute) Hyperlipidemia (Chronic) Back pain, chronic (Chronic) Depression (Chronic) Osteoarthritis (Chronic) Osteopenia (Chronic) Urinary incontinence (Chronic) 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 Father No problems noted. Sister Personal history of malignant neoplasm Sister No problems noted. Grandfather Personal history of malignant neoplasm Grandfather Personal history of malignant neoplasm Grandmother Heart disease Acute ill-defined cerebrovascular disease Grandmother Personal history of malignant neoplasm Aunt Heart disease Aunt Heart disease Brother No problems noted. Social History Smoking and Tabacco status: Former Tobacco Use Exam Const General: no acute distress Orientation: alert HENMT Head: normal to inspection Ears: external ears normal General nose exam: external nose normal Mouth: moist mucous membranes Eyes General: appearance normal, both eyes and all related structures Neck Neck: normal visual inspection Resp Effort & Inspection: normal respiratory effort and able to speak in complete sentences Cardio Jugular venous pressure: no JVD Rate: tachycardic Rhythm: regular rhythm Skin General skin exam: no rashes or lesions noted Neuro General: alert and oriented x3 Extrem General: normal to inspection Psych Mental Status: mental status grossly normal Course Vital Signs Temperature 36.6 C 10/24/18 16:57 Pulse 125 H 10/24/18 16:57 Respiratory Rate 28 H 10/24/18 16:57 Blood Pressure 171/72 H 10/24/18 16:57 Pulse Oximetry 99 10/24/18 16:57 Temperature 36.6 C 10/24/18 16:57 Temperature Source Temporal Artery Scan 10/24/18 16:57 Pulse 125 H 10/24/18 16:57 Respiratory Rate 28 H 10/24/18 16:57 Respiratory Effort Non-Labored 10/24/18 16:57 Blood Pressure 171/72 H 10/24/18 16:57 Blood Pressure Position Sitting 10/24/18 16:57 Pulse Oximetry 99 10/24/18 16:57 Oxygen Delivery Method Room Air 10/24/18 16:57 Oxygen Flow Rate 0 10/24/18 16:57 Pain Level 7 10/24/18 16:57
[2018-10-24] MEDS: MAGNESIUM SULFATE 1 GM/100 ML BAG IVPB (17:21)
[2018-10-24] MEDS: THIAMINE 100 MG in Normal Saline 100 ML 200 MG IVPB (17:21)
[2018-10-24] MEDS: LORazepam 2 MG/ML VIAL IVP (17:21)
[2018-10-24] MEDS: Normal Saline 1,000 ML 1000 ML IV (17:21)
[2018-10-24 17:32] LABS: Abs Immature Grans 0.01 k/cumm (0.0-0.09); Absolute Basophil Count 0.01 k/cumm (0.0-0.2); Absolute Monocyte Count 0.22 k/cumm (0.11-0.7); Absolute Neutrophil Count 5.13 k/cumm (1.2-6.7); Basophils % 0.2; HCT 31.2 % (36.0-46.0); Immature Grans % 0.2; Lymphocytes % 3.6; Mean Corp. HGB Concentration 32.1 g/dL (32.0-36.0); Mean Corpuscular Hemoglobin 30.8 pg (27.0-33.0); Mean Platelet Volume 8.9 fL (8.0-11.0); Monocytes % 3.9; Neutrophils % 92.1; Platelet Count 217 x1000/uL (130-400); RBC 3.25 m/cumm (4.00-5.20); RBC Distribution Width 19.1 % (11.7-14.6); White Blood Cell Count 5.57 k/cumm (4.4-10.8)
[2018-10-24 17:40] LABS: ALT 22 U/L (12-78); AST 23 U/L (15-37); Albumin 4.1 g/dL (3.4-5.0); Alkaline Phosphatase 118 U/L (46-116); Anion Gap 22.6 mmol/L (3-11); BUN 18 mg/dL (7-18); Bilirubin, Total 1.7 mg/dL (0.2-1.0); CO2 19.4 mmol/L (21.0-32.0); CREATININE 1.26 mg/dL (0.55-1.02); Chloride 100 mmol/L (98-107); Estimated GFR 41.74 (mL/min/1.73m2); Glucose 242 mg/dL (70-100); Lipase 88 U/L (73-393); Potassium 3.4 mmol/L (3.5-5.1); Sodium 142 mmol/L (136-145); Total Protein 7.9 g/dL (6.4-8.2)
[2018-10-24 18:05] LABS: Calcium 10.4 mg/dL (8.5-10.1)
[2018-10-24 18:12] LABS: ETHANOL BLOOD < 3.0 mg/dL (<3)
[2018-10-24] MEDS: Normal Saline Flush 10 ML SYR IVP (19:00)
== END 2018-10-24 18:57 | disposition home or self-care (01) ==
LOC: ER 18:24
PROVIDERS: Emergency Provider Emergency Medicine; PCP Family Medicine
DX: R11.2 Nausea with vomiting, unspecified (principal); F10.10 Alcohol abuse, uncomplicated; I10 Essential (primary) hypertension
CPT/HCPCS: 36415; 80053; 80076; 83690; 96361; 96365; 96368; 96375; 99284; 80320; 85025; J2060; J3475

== ENCOUNTER 2019-01-01 08:01 | Outpatient (CLI) | payer OTHER, SELFPAY ==
[2019-01-01 11:02] LABS: HCT 32.2 % (36.0-46.0); HGB 9.6 g/dL (12.0-15.5); Mean Corp. HGB Concentration 29.8 g/dL (32.0-36.0); Mean Corpuscular Hemoglobin 26.4 pg (27.0-33.0); Mean Corpuscular Volume 88.7 fL (80-95); Mean Platelet Volume 8.6 fL (8.0-11.0); Platelet Count 286 x1000/uL (130-400); RBC 3.63 m/cumm (4.00-5.20); RBC Distribution Width 16.3 % (11.7-14.6); White Blood Cell Count 3.27 k/cumm (4.4-10.8)
[2019-01-01 11:55] LABS: Anion Gap 13.5 mmol/L (3-11); BUN 17 mg/dL (7-18); CO2 29.5 mmol/L (21.0-32.0); CREATININE 1.07 mg/dL (0.55-1.02); Calcium 9.9 mg/dL (8.5-10.1); Chloride 99 mmol/L (98-107); Estimated GFR 50.41 (mL/min/1.73m2); Glucose 107 mg/dL (70-100); Potassium 3.3 mmol/L (3.5-5.1); Sodium 142 mmol/L (136-145); Vitamin B12 319 pg/mL (193-986)
[2019-01-02 11:04] LABS: Ferritin 25 ng/mL (8-388); Folate 19.4 ng/mL (8.6-20.0)
== END 2019-01-01 08:21 ==
PROVIDERS: PCP Family Medicine; Visit Provider Family Medicine
DX: K29.20 Alcoholic gastritis without bleeding (principal); D64.9 Anemia, unspecified; F10.20 Alcohol dependence, uncomplicated
CPT/HCPCS: 36415; 80048; 85027; 82607; 82728; 82746

== ENCOUNTER 2019-01-04 20:29 | Emergency (ER) | payer OTHER, SELFPAY ==
[2019-01-04] VITALS (29 sets, daily range): BP systolic 110–193; BP diastolic 61–92; PULSE 118–133; RESP 17–37; TEMP 37.1; O2SAT 92–100
--- NOTE | 2019-01-04 20:47 | DI.RAD_ITS ---
SYMPTOM/DIAGNOSIS: LEFT CHEST PAIN RESOLVED NOW. PORTABLE AP CHEST: 01/04 The heart is not enlarged. The lungs are grossly clear and well expanded. 12 mm pulmonary nodule seen on CT in the right lung apex is not seen on this exam.
--- NOTE | 2019-01-04 21:03 | DI.VRAD_ITS ---
EXAM: XR Chest, 1 View EXAM DATE/TIME: 01/04/2019 8:39 PM CLINICAL HISTORY: 73 years old, female; Left-sided chest pain TECHNIQUE: Imaging protocol: XR of the chest, 1 view. COMPARISON: CR XR CHEST 2V PA LATERAL 08/11/2018 3:14 PM FINDINGS: Lungs: Lung gatica are clear. No infiltrates. Pleural space: No pleural effusion or pneumothorax. Heart/Mediastinum: Heart size normal. Moderate aortic tortuosity/ectasia and Pulmonary vaculature normal. No tracheal shift. Bones/joints: There are multiple bilateral chronic appearing rib fractures which are unchanged. No superimposed acute rib fractures were identified radiographically. Chronic postsurgical changes in the distal left clavicle. IMPRESSION: 1. No acute thoracic process. 2. Chronic bilateral rib fractures. No acute osseous abnormalities are identified radiographically. Dictated and Authenticated by: Clarence Phipps MD. Ordering:SHADI Miller MD
[2019-01-04] MEDS: LORazepam 2 MG/ML VIAL 0.5 MG IVP (21:19)
[2019-01-04] MEDS: Normal Saline 1,000 ML 1000 ML IV (21:20)
[2019-01-04 21:22] LABS: Abs Immature Grans 0.02 k/cumm (0.0-0.09); Absolute Basophil Count 0.02 k/cumm (0.0-0.2); Absolute Lymphocyte Count 0.33 k/cumm (1.2-3.4); Absolute Monocyte Count 0.45 k/cumm (0.11-0.7); Absolute Neutrophil Count 9.38 k/cumm (1.2-6.7); Basophils % 0.2; HCT 32.7 % (36.0-46.0); HGB 10.1 g/dL (12.0-15.5); Immature Grans % 0.2; Lymphocytes % 3.2; Mean Corp. HGB Concentration 30.9 g/dL (32.0-36.0); Mean Corpuscular Hemoglobin 27.2 pg (27.0-33.0); Mean Corpuscular Volume 87.9 fL (80-95); Mean Platelet Volume 8.4 fL (8.0-11.0); Monocytes % 4.4; Platelet Count 241 x1000/uL (130-400); RBC 3.72 m/cumm (4.00-5.20); RBC Distribution Width 16.9 % (11.7-14.6)
[2019-01-04 21:32] LABS: Lipase 102 U/L (73-393)
[2019-01-04 21:37] LABS: ALT 47 U/L (12-78); AST 43 U/L (15-37); Albumin 4.4 g/dL (3.4-5.0); Alkaline Phosphatase 110 U/L (46-116); Anion Gap 25.6 mmol/L (3-11); BUN 17 mg/dL (7-18); Bilirubin, Total 1.7 mg/dL (0.2-1.0); CO2 20.4 mmol/L (21.0-32.0); CREATININE 1.47 mg/dL (0.55-1.02); Calcium 11.2 mg/dL (8.5-10.1); Chloride 97 mmol/L (98-107); Estimated GFR 34.94 (mL/min/1.73m2); Glucose 246 mg/dL (70-100); Potassium 3.2 mmol/L (3.5-5.1); Sodium 143 mmol/L (136-145); Total Protein 8.1 g/dL (6.4-8.2)
[2019-01-04 21:50] LABS: ETHANOL BLOOD < 3.0 mg/dL (<3); Troponin I < 0.02 ng/mL (0.00-0.06)
--- NOTE | 2019-01-04 23:12 | ED.GENADUL_ITS ---
Discharge Plan Disposition Patient Disposition: [facility] Condition: Improving Discharge Details Chief Complaint: Abd Prob Clinical Impression: Alcohol abuse, Alcohol withdrawal, Metastatic disease, Acute alcoholic gastritis, Acute hypokalemia, Hypercalcemia Primary Care Provider: Lavelle Galindo ED Provider: Paul Chavira Home Meds and New Rx's Prescriptions: No Action valacyclovir 500 mg tablet 1,000 mg PO QAM RF: 0 prednisolone acetate 1 % drops,suspension 1 drp OP QID RF: 0 potassium chloride [Klor-Con M10] 10 mEq tablet,ER particles/crystals 10 meq PO DAILY Qty: 90 RF: 3 ondansetron 4 mg tablet,disintegrating 4 mg PO QID PRN (Reason: nausea and vomiting) Qty: 20 RF: 1 fluticasone propionate 16 GM spray,suspension 1 spr NS daily prn Qty: 3 RF: 3 naltrexone 50 MG tablet 50 mg PO DAILY Qty: 30 RF: 2 pyridoxine (vitamin B6) [Vitamin B-6] 50 MG tablet 50 mg PO nightly Qty: 60 RF: 4 erythromycin ophthalmic oint ointment OD QID RF: 0 hydrochlorothiazide 12.5 mg tablet 12.5 mg PO DAILY Qty: 90 RF: 3 magnesium oxide 400 mg (241.3 mg magnesium) tablet 400 mg PO BID Qty: 180 RF: 3 pantoprazole 40 mg tablet,delayed release (DR/EC) 40 mg PO DAILY Qty: 90 RF: 3 ranitidine HCl 150 mg tablet 150 mg PO BID Qty: 180 RF: 3 venlafaxine 75 mg tablet 75 mg PO DAILY Qty: 30 RF: 3 venlafaxine 37.5 mg tablet 37.5 mg PO DAILY Qty: 30 RF: 3 amlodipine 10 mg tablet 10 mg PO DAILY Qty: 30 RF: 11 gabapentin 300 mg capsule 300 mg PO TID Qty: 90 RF: 5 celecoxib [Celebrex] 100 mg capsule 100 mg PO DAILY Qty: 90 RF: 1 polyethylene glycol 3350 17 GM powder in packet 17 gm PO DAILY PRN PRN (Reason: Constipation) RF: 0 acetaminophen [Mapap Extra Strength] 500 MG tablet 500 mg PO Q6H RF: 0 folic acid 1 mg Tablet 1 mg PO DAILY Qty: 14 RF: 0 cholecalciferol (vitamin D3) 1,000 unit Tablet 2,000 units PO DAILY Qty: 14 RF: 0 thiamine mononitrate (vit B1) [Vitamin B-1 (mononitrate)] 100 mg Tablet 100 mg PO QAM Qty: 14 RF: 0 multivitamin [Multiple Vitamins] Tablet 1 tab PO DAILY Qty: 0 RF: 0 Narcan 4 mg/actuation spray,non-aerosol 1 spray EZIO ONCE PRN (Reason: opioid overdose) Qty: 2 RF: 0 Medical Decision Making This is a 73-year-old female with a past medical history of chronic alcoholism, gastritis, medical noncompliance, who presents today for evaluation of chest pain and epigastric pain as well as mild alcohol withdrawal. She had a brief episode of chest pain that lasted 1 minute, it was positional and got better on its own. She also has associated chronic epigastric pain which she describes as much worse now compared to normal. Her last drink was 24 hours ago. She does have a history of DTs before but denies any history of seizure. No reproducible chest pain on exam, notable reproducible epigastric pain. Vital signs demonstrate notable tachycardic, the patient is very anxious. I feel that DTs is certainly a component of her symptomatology, however less likely but still in the differential includes severe pancreatitis, gastric ulcer with perf oration causing her abdominal pain and tachycardia, ACS, or notable dehydration. We will rehydrate, perform a CT scan Noncon secondary to decreased renal function to rule out acute abdominal pathology, perform an ACS work-up, start a banana bag, give Ativan for DTs. We will give a GI cocktail for potential gastritis. CIWA score at this time is 11-13. 1 AM Laboratory work-up has returned, the patient's white count is normal, hemoglobin is is at her baseline, platelets are normal, electrolytes demonstrate a potassium of 3.2, chloride of 97, bicarb of 20, anion gap of 25, which I feel is most likely suggestive of alcohol alcoholic ketoacidosis. Creatinine is 1.47 which is higher than her normal. Calcium is 11.2. Bilirubin is 1.7 at her normal. She is less than 0.02. Lipase is normal. Alcohol level is undetectable. Signs and symptoms appear consistent with alcohol withdrawal. The patient has had a improvement of her see was score with her Ativan. CT scan results have returned and demonstrate notable nodules in the lung and liver, concerning for metastases. The patient has known lung nodules, however these liver nodules appear to be somewhat new. She has other nonacute findings of renal cyst, but no evidence of acute process, perf from the abdomen, severe pneumonia or other abnormality per the virtual radiologist. I feel the patient's current signs and symptoms are clinically consistent with alcohol withdrawal at this time. With complete absence of any current chest pain, shortness of breath, chest heaviness or chest weight, I feel that her symptoms are clinically inconsistent with severe PE, ACS, severe pneumonia. Unfortunately at this time we do not have any telemetry or ICU beds. Patient would not be a candidate for admission here. We have contacted [facility] and they are full, cottage, and they are unwilling to accept the patient at this time. We did contact [facility], and I spoke with the on-call provider, operating under Dr. Pacheco, and he agrees with the current assessment and plan and agrees to accept the patient for transfer. Patient's Electrolytes have been replaced, banana bag has been given, magnesium has been supplemented. Patient will be transferred by [facility]. I have extensively reviewed the treatment plan with the patient. I have addressed all patient concerns at this time. I have also discussed the plan with the admitting physician and they agree with the current assessment and plan and have agreed to assume responsibility for the patient. All parties demonstrate verbal understanding and agreement with our assessment and plan at this time. At time of transfer the patient was reassessed and continued to demonstrate current medical stability. No signs of acute respiratory distress requiring intubation, hemodynamic instability requiring pressor support, or rapidly declining mental status. The patient is stable for transport. EKG 20: 38 Rate 129, VA 134, QTc 469, sinus tachycardia, no significant ST elevations or depressions, inverted T wave in lead III. No other significant abnormalities. No evidence of STEMI. TECHNIQUE: Imaging protocol: XR of the chest, 1 view. COMPARISON: CR XR CHEST 2V PA LATERAL 08/11/2018 3:14 PM FINDINGS: Lungs: Lung gatica are clear. No infiltrates. Pleural space: No pleural effusion or pneumothorax. Heart/Mediastinum: Heart size normal. Moderate aortic tortuosity/ectasia and Pulmonary vaculature normal. No tracheal shift. Bones/joints: There are multiple bilateral chronic appearing rib fractures which are unchanged. No superimposed acute rib fractures were identified radiographically. Chronic postsurgical changes in the distal left clavicle. IMPRESSION: 1. No acute thoracic process. 2. Chronic bilateral rib fractures. No acute osseous abnormalities are identified radiographically. Dictated and Authenticated by: Clarence Phipps MD. Ordering:SHADI Miller MD EXAM: CT Chest Without Contrast EXAM DATE/TIME: 01/04/2019 11:17 PM CLINICAL HISTORY: 73 years old, female; Abdominal pain; Generalized; Chest wall pain; Patient HX: Chronic pain, epigastric pain, chronic ETOH TECHNIQUE: Imaging protocol: Axial computed tomography images of the chest without intravenous contrast. Coronal and sagittal reformatted images were created and reviewed. Radiation optimization: All CT scans at this facility use at least one of these dose optimization techniques: automated exposure control; mA and/or kV adjustment per patient size (includes targeted exams where dose is matched to clinical indication); or iterative reconstruction. COMPARISON: CT Private^ROUTINE_ABDOMEN_PELVIS_WITH_CONTRAST (Adult) 06/26/2018 4:52 PM FINDINGS: Thyroid: The thyroid gland is unremarkable. Lungs: No tracheobronchial abnormalities. No infiltrates or edema. There is a mildly spiculated 11.5 x 8.6 mm noncalcified solid nodule in the posterior right pulmonary apex on series 2 image 11. For both low risk and high risk patients, consider CT at 3 months, PET/CT or biopsy. (Val et al., Fleischner Society, 2017). Pleural space: No pneumothorax. Heart: Mild cardiomegaly. Mild aortic ectasia and tortuosity without adria aneurysm. Mediastinum: The esophagus is largely contracted without gross abnormality. Aorta: See Heart Finding. Lymph nodes: No supraclavicular or axillary adenopathy. No mediastinal or hilar adenopathy. Bones/joints: Multiple chronic right posterior rib fractures noted. Multiple chronic left lateral and posterolateral rib fractures noted. No acute rib fractures are identified. There is mild inferior endplate compression deformity of T12 with about 20% loss of anterior vertebral body height and no retropulsion. This is age-indeterminate. Soft tissues: Soft tissues of the thoracic wall demonstrate no gross abnormality. Other findings: No effusions. IMPRESSION: 1. 11.5 mm mildly spiculated noncalcified solid pulmonary nodule in the right posterior pulmonary apex. For both low risk and high risk patients, consider CT at 3 months, PET/CT or biopsy. (Val et al., Fleischner Society, 2017). 2. No evidence of associated adenopathy. 3. Mild cardiomegaly. 4. Multiple bilateral chronic rib fractures. No acute rib fractures are id entified. 5. Mild inferior endplate compression deformity of T12, age-indeterminate. No retropulsion. EXAM: CT Abdomen and Pelvis Without Contrast EXAM DATE/TIME: 01/04/2019 11:17 PM CLINICAL HISTORY: 73 years old, female; Abdominal pain; Generalized; Chest wall pain; Patient HX: Chronic pain, epigastric pain, chronic ETOH TECHNIQUE: Imaging protocol: Axial computed tomography images of the abdomen and pelvis without contrast. Coronal and sagittal reformatted images were created and reviewed. Radiation optimization: All CT scans at this facility use at least one of these dose optimization techniques: automated exposure control; mA and/or kV adjustment per patient size (includes targeted exams where dose is matched to clinical indication); or iterative reconstruction . COMPARISON: CT Private^ROUTINE_ABDOMEN_PELVIS_WITH_CONTRAST (Adult) 06/26/2018 4:52 PM FINDINGS: ABDOMEN: Liver: There are innumerable poorly defined low density nodular foci distributed throughout the liver. There is no peripheral nodularity to suggest underlying hepatic cirrhosis, and the appearance raises concern for the possibility of diffuse hepatic metastasis. Previous report from CT abdomen pelvis on 06/26/2018 suggests this is a new finding. This is a new appearance compared to the postcontrast CT 06/11/2018 images. At this point, recommend further characterization with multiphase post gadolinium MRI. Gallbladder and bile ducts: Normal. No calcified stones. No ductal dilation. Pancreas: Normal. No inflammatory changes or ductal dilation. Spleen: Normal. No splenomegaly. Adrenals: Normal. No adrenal mass. Kidneys and ureters: Multiple bilateral probable renal cysts. The largest is in the anterior midpole of the right kidney measuring 2.9 cm and measuring fluid density. There is a small hyperdense 4 mm lesion in the posterior upper pole cortex of the right kidney which may represent a cyst with hemorrhagic/proteinaceous content. Post contrast CT or ultrasound could be helpf ul in further characterization to exclude solid features. Bilateral nonspecific perinephric stranding. Stomach and bowel: The visualized distal esophagus and stomach are normal. The small bowel is normal with no evidence of obstruction. The colon is fully contracted, limiting its assessment. Appendix: Normal. No evidence of appendicitis. PELVIS: Bladder: Unremarkable as visualized. Reproductive: Unremarkable as visualized. ABDOMEN and PELVIS: Intraperitoneal space: No free fluid or air. Bones/joints: Grade 1 anterolisthesis and moderate central canal stenosis L4-L5. Soft tissues: In the presacral distribution there is a heterogeneous 3.4 x 2.7 cm soft tissue density lesion which is unchanged from the description on the previous report from 06/26/2018. The etiology is uncertain. It does not appear to arise from the colon or uterus. It has been described on multiple prior reports and demonstrates long-term stability based on the available reports. This goes against malignancy. No local adenopathy. Vasculature: Mild atherosclerotic aortoiliac calcification without aneurysm. Lymph nodes: No adenopathy. IMPRESSION: 1. Innumerable poorly defined low density lesions throughout the liver which appear to be new from previous report description is. This raises concern for possible hepatic metastasis. Multiphase post gadolinium MRI of the liver is recommended for further characterization. 2. 3.4 cm mass in the presacral distribution remains unchanged back to 2017 description, which goes against malignancy. Considering the liver findings however, PET/CT scan maybe helpful to confirm that there is not hypermetabolic uptake if not previously performed, or previously biopsied. 3. Multiple probable renal cysts. A 4 mm lesion in the posterior upper pole cortex of the right kidney is mildly hyperdense and is probably hemorrhagic/proteinaceous cyst although this could be confirmed with greater specificity on postcontrast CT oral percent. 4. Moderate central canal stenosis L4-L5. Thank you for allowing us to participate in the care of your patient. Dictated and Authenticated by: Clarence Phipps MD HPI General Date/Time Provider Initiated Documentation: 01/04/19 20:34 . HPI Narrative: This is a 73-year-old female with a past medical history of chronic alcoholism, chronic rib fractures, chronic medical noncompliance, who presents today for evaluation of chest pain, abdominal pain, and DTs. The patient states that she had chest pain that occurred roughly 30 minutes ago, it lasted 1 minute, it was only present when she was bending forward, she describes it as a severe stabbing sensation, that went away on its own without any other activity. It was only brought on by that movement, there is no radiation to the arm, neck, or head. She denies any tearing sensation. She also has chronic abdominal and epigastric pain, and she states that this is worse now than it was in the past. She denies any vomiting but does admit to notable nausea. Last drink was 24 hours ago. She has a history of alcoholic gastritis but does not take her medication for. She denies any history of stroke, heart attack, or PE. She denies any other complaints. No other modifying factors. The patient denies a history of seizures with alcohol withdrawal. Related Data Home Medications Medication Instructions Recorded Confirmed fluticasone propionate 1 spr NS daily prn #3 bottle 09/03/16 11/08/18 naltrexone 50 mg PO DAILY #30 tab-cap 11/04/17 11/08/18 pyridoxine (vitamin B6) [Vitamin 50 mg PO nightly #60 cap 11/04/17 11/08/18 B-6] acetaminophen [Mapap Extra 500 mg PO Q6H tab 04/17/18 11/08/18 Strength] polyethylene glycol 3350 17 gm PO DAILY PRN PRN packet 04/17/18 11/08/18 Narcan 1 spray EZIO ONCE PRN #2 each 06/28/18 11/08/18 multivitamin [Multiple Vitamins] 1 tab PO DAILY #0 tab 06/28/18 11/08/18 cholecalciferol (vitamin D3) 2,000 units PO DAILY #14 tab 08/11/18 11/08/18 folic acid 1 mg PO DAILY #14 tab 08/11/18 11/08/18 thiamine mononitrate (vit B1) 100 mg PO QAM #14 tab 08/11/18 11/08/18 [Vitamin B-1 (mononitrate)] erythromycin ophthalmic oint OD QID 09/22/18 11/08/18 prednisolone acetate 1 % eye 1 drp OP QID 09/22/18 11/08/18 drops,suspension valacyclovir 500 mg tablet 1,000 mg PO QAM tab 09/22/18 11/08/18 amlodipine 10 mg tablet 10 mg PO DAILY #30 tab 11/22/18 gabapentin 300 mg capsule 300 mg PO TID #90 cap 11/22/18 hydrochlorothiazide 12.5 mg tablet 12.5 mg PO DAILY #90 tab 11/22/18 magnesium oxide 400 mg (241.3 mg 400 mg PO BID #180 tab 11/22/18 magnesium) tablet pantoprazole 40 mg tablet,delayed 40 mg PO DAILY #90 tab 11/22/18 release ranitidine 150 mg tablet 150 mg PO BID #180 tab 11/22/18 venlafaxine 37.5 mg tablet 37.5 mg PO DAILY #30 tab 11/22/18 venlafaxine 75 mg tablet 75 mg PO DAILY #30 tab 11/22/18 ondansetron 4 mg disintegrating 4 mg PO QID PRN #20 tab 11/28/18 11/28/18 tablet potassium chloride ER 10 mEq 10 meq PO DAILY #90 tab 11/28/18 11/28/18 tablet,extended release(part/cryst) celecoxib 100 mg capsule 100 mg PO DAILY #90 cap 11/29/18 Previous Rx's Medication Instructions Recorded naltrexone 50 mg PO DAILY #30 tab-cap 11/04/17 pyridoxine (vitamin B6) [Vitamin 50 mg PO nightly #60 cap 11/04/17 B-6] acetaminophen [Mapap Extra 500 mg PO Q6H tab 04/17/18 Strength] polyethylene glycol 3350 17 gm PO DAILY PRN PRN packet 04/17/18 Narcan 1 spray EZIO ONCE PRN #2 each 06/28/18 multivitamin [Multiple Vitamins] 1 tab PO DAILY #0 tab 06/28/18 cholecalciferol (vitamin D3) 2,000 units PO DAILY #14 tab 08/11/18 folic acid 1 mg PO DAILY #14 tab 08/11/18 thiamine mononitrate (vit B1) 100 mg PO QAM #14 tab 08/11/18 [Vitamin B-1 (mononitrate)] amlodipine 10 mg tablet 10 mg PO DAILY #30 tab 11/22/18 gabapentin 300 mg capsule 300 mg PO TID #90 cap 11/22/18 hydrochlorothiazide 12.5 mg tablet 12.5 mg PO DAILY #90 tab 11/22/18 magnesium oxide 400 mg (241.3 mg 400 mg PO BID #180 tab 11/22/18 magnesium) tablet pantoprazole 40 mg tablet,delayed 40 mg PO DAILY #90 tab 11/22/18 release ranitidine 150 mg tablet 150 mg PO BID #180 tab 11/22/18 venlafaxine 37.5 mg tablet 37.5 mg PO DAILY #30 tab 11/22/18 venlafaxine 75 mg tablet 75 mg PO DAILY #30 tab 11/22/18 ondansetron 4 mg disintegrating 4 mg PO QID PRN #20 tab 11/28/18 tablet potassium chloride ER 10 mEq 10 meq PO DAILY #90 tab 11/28/18 tablet,extended release(part/cryst) celecoxib 100 mg capsule 100 mg PO DAILY #90 cap 11/29/18 Allergies Allergy/AdvReac Type Severity Reaction Status Date / Time Penicillins Allergy Mild Rash Unverified 11/08/18 10:42 ramipril Allergy Unknown ITCHING Unverified 11/08/18 10:42 meperidine [From Demerol] AdvReac Severe Nausea Unverified 11/08/18 10:42 bupropion AdvReac Mild GI upset Unverified 11/08/18 10:42 AMBER Inhibitors AdvReac Unknown COUGH Unverified 11/08/18 10:42 alendronate sodium AdvReac Unknown GI Distress Unverified 11/08/18 10:42 clarithromycin AdvReac Unknown intolerant Unverified 11/08/18 10:42 paroxetine AdvReac Unknown Diarrhea Unverified 11/08/18 10:42 General Stated Complaint: Abd Prob JORDAN: 3 Review of Systems Review of Systems All systems reviewed & are unremarkable except as noted in HPI and below PFSH Social History Smoking/Tobacco Use Status: Former Tobacco Use Drug use: Never Do you feel safe in your relationship?: Yes Exam Narrative Exam Narrative: 1.Const: Well-nourished, Well-developed, appearing stated age 2.Eyes: PERRL, no conjunctival injection, and symmetrical lids. 3.ENT: Atraumatic external nose and ears. Moist MM. Neck: Symmetric, trachea midline, No thyromegaly. 4.CVS: +S1/S2, No murmurs or gallops. Peripheral pulses 2+ and equal in all extremities. Brisk capillary refill in all extremities. 5.RESP: Unlabored respiratory effort. Clear to auscultation bilaterally. No wheezes rales or rhonchi 6.GI: Soft,Nondistended, No hepatosplenomegaly. Generalized tenderness throughout, notably worse in the epigastric region. No reproducible chest pain. No pain at McBurney's point, negative Zavala sign. 7.MSK: Normocephalic/Atraumatic, Extremities w/o deformity or ttp No cyanosis or clubbing, Normal movement of all extremities 8.Skin: Warm, Dry. No rashes or lesions. 9.Neuro: awake overnight monitor II-XII grossly intact. Sensation grossly intact, no focal neurologic deficits. 10.Psych: (AAO) x3. Notably anxious, mild tremor. Course Vital Signs Temperature 37.1 C 01/04/19 20:30 Pulse 128 H 01/04/19 20:30 Respiratory Rate 23 01/04/19 20:30 Blood Pressure 174/80 H 01/04/19 20:30 Pulse Oximetry 96 01/04/19 20:30 Temperature 37.1 C 01/04/19 20:30 Temperature Source Skin 01/04/19 20:30 Pulse 128 H 01/04/19 20:30 Respiratory Rate 23 01/04/19 20:30 Blood Pressure 174/80 H 01/04/19 20:30 Pulse Oximetry 96 01/04/19 20:30 Oxygen Delivery Method Room Air 01/04/19 20:30 Oxygen Flow Rate 0 01/04/19 20:30 Pain Level 5 01/04/19 20:30 Lab/Test Results Lab/Test Results: Laboratory Tests Range/Units 01/04/19 01/04/19 01/04/19 21:15 21:15 21:15 WBC (4.4-10.8) k/cumm 10.20 RBC (4.00-5.20) m/cumm 3.72 L Hgb (12.0-15.5) g/dL 10.1 L Hct (36.0-46.0) % 32.7 L MCV (80-95) fL 87.9 MCH (27.0-33.0) pg 27.2 MCHC (32.0-36.0) g/dL 30.9 L RDW (11.7-14.6) % 16.9 H Plt Count (130-400) x1000/uL 241 MPV (8.0-11.0) fL 8.4 Immature Gran % 0.2 Neutrophils % 92.0 Lymphocytes % 3.2 Monocytes % 4.4 Eosinophils % 0.0 Basophils % 0.2 Absolute Neutrophils (1.2-6.7) k/cumm 9.38 H Absolute Lymphocytes (1.2-3.4) k/cumm 0.33 L Absolute Monocytes (0.11-0.7) k/cumm 0.45 Absolute Eosinophils (0.0-0.7) k/cumm 0.00 Absolute Basophils (0.0-0.2) k/cumm 0.02 Sodium (136-145) mmol/L 143 Potassium (3.5-5.1) mmol/L 3.2 L Chloride (98-107) mmol/L 97 L Carbon Dioxide (21.0-32.0) mmol/L 20.4 L Anion Gap (3-11) mmol/L 25.6 H BUN (7-18) mg/dL 17 Creatinine (0.55-1.02) mg/dL 1.47 H Estimated GFR/1.73 m2 (mL/min/1.73m2) 34.94 Glucose (70-100) mg/dL 246 H Calcium (8.5-10.1) mg/dL 11.2 H Total Bilirubin (0.2-1.0) mg/dL 1.7 H AST (15-37) U/L 43 H ALT (12-78) U/L 47 Alkaline Phosphatase (46-116) U/L 110 Troponin I (0.00-0.06) ng/mL Total Protein (6.4-8.2) g/dL 8.1 Albumin (3.4-5.0) g/dL 4.4 Lipase (73-393) U/L 102 Ethyl Alcohol (<3) mg/dL < 3.0 Range/Units 01/04/19 21:15 WBC (4.4-10.8) k/cumm RBC (4.00-5.20) m/cumm Hgb (12.0-15.5) g/dL Hct (36.0-46.0) % MCV (80-95) fL MCH (27.0-33.0) pg MCHC (32.0-36.0) g/dL RDW (11.7-14.6) % Plt Count (130-400) x1000/uL MPV (8.0-11.0) fL Immature Gran % Neutrophils % Lymphocytes % Monocytes % Eosinophils % Basophils % Absolute Neutrophils (1.2-6.7) k/cumm Absolute Lymphocytes (1.2-3.4) k/cumm Absolute Monocytes (0.11-0.7) k/cumm Absolute Eosinophils (0.0-0.7) k/cumm Absolute Basophils (0.0-0.2) k/cumm Sodium (136-145) mmol/L Potassium (3.5-5.1) mmol/L Chloride (98-107) mmol/L Carbon Dioxide (21.0-32.0) mmol/L Anion Gap (3-11) mmol/L BUN (7-18) mg/dL Creatinine (0.55-1.02) mg/dL Estimated GFR/1.73 m2 (mL/min/1.73m2) Glucose (70-100) mg/dL Calcium (8.5-10.1) mg/dL Total Bilirubin (0.2-1.0) mg/dL AST (15-37) U/L ALT (12-78) U/L Alkaline Phosphatase (46-116) U/L Troponin I (0.00-0.06) ng/mL < 0.02 Total Protein (6.4-8.2) g/dL Albumin (3.4-5.0) g/dL Lipase (73-393) U/L Ethyl Alcohol (<3) mg/dL
--- NOTE | 2019-01-04 23:40 | DI.CT_ITS ---
SYMPTOM/DIAGNOSIS: EPIGASTRIC PAIN, CHRONIC ETOH, RIB PAIN CT CHEST, ABDOMEN AND PELVIS: 01/[address] of the chest, abdomen and pelvis was performed. There are multiple healed rib fractures. Due to the degree of motion artifact on this scan it would be impossible to absolutely exclude acute rib fracture but no definite acute rib fracture is seen. No mediastinal or hilar adenopathy. No pneumothorax or pleural effusion. Mild cardiomegaly noted. There is an 11-12 mm spiculated noncalcified pulmonary nodule in the right lung apex. This is essentially unchanged in comparison with examination of 06/11/18. No additional pulmonary lesion identified. Tracheobronchial tree appears intact. There are innumerable small low attenuation hepatic lesions which were not present on most recent CT. The findings are suspicious for metastatic disease although other etiologies including infectious process not excluded. The spleen is unremarkable. Pancreas appears intact. Gallbladder and bile ducts are CT normal. Abdominal aorta is of normal diameter. Bilateral fat containing inguinal hernias noted. No abdominal or pelvic adenopathy seen. There are multiple renal cortical lesions unchanged from prior CT of 06/11/18 and these appear to be consistent with cysts. No urinary tract obstruction. Nonobstructing tiny left renal calculus noted. Appendix is normal. No evidence of bowel obstruction or diverticulitis. 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 Note is made of a pre-sacral mass measuring up to about 33 mm in diameter, unchanged from examinations dating back to 2017. CONCLUSION: 1. Stable 12 mm right apical pulmonary mass 2. Stable pre-sacral mass 3. Interval development of innumerable low attenuation hepatic foci, consider metastatic disease, infectious process, etc. 4. No other significant acute findings.
[2019-01-05] VITALS (16 sets, daily range): BP systolic 129–164; BP diastolic 79–103; PULSE 120–130; RESP 15–31; O2SAT 95–99
--- NOTE | 2019-01-05 00:03 | DI.VRAD_ITS ---
EXAM: CT Chest Without Contrast EXAM DATE/TIME: 01/04/2019 11:17 PM CLINICAL HISTORY: 73 years old, female; Abdominal pain; Generalized; Chest wall pain; Patient HX: Chronic pain, epigastric pain, chronic ETOH TECHNIQUE: Imaging protocol: Axial computed tomography images of the chest without intravenous contrast. Coronal and sagittal reformatted images were created and reviewed. Radiation optimization: All CT scans at this facility use at least one of these dose optimization techniques: automated exposure control; mA and/or kV adjustment per patient size (includes targeted exams where dose is matched to clinical indication); or iterative reconstruction. COMPARISON: CT Private^ROUTINE ABDOMEN PELVIS WITH CONTRAST (Adult) 06/26/2018 4:52 PM FINDINGS: Thyroid: The thyroid gland is unremarkable. Lungs: No tracheobronchial abnormalities. No infiltrates or edema. There is a mildly spiculated 11.5 x 8.6 mm noncalcified solid nodule in the posterior right pulmonary apex on series 2 image 11. For both low risk and high risk patients, consider CT at 3 months, PET/CT or biopsy. (MacMahonguyen, et al., Fleischner Society, 2017). Pleural space: No pneumothorax. Heart: Mild cardiomegaly. Mild aortic ectasia and tortuosity without adria aneurysm. Mediastinum: The esophagus is largely contracted without gross abnormality. Aorta: See Heart Finding. Lymph nodes: No supraclavicular or axillary adenopathy. No mediastinal or hilar adenopathy. Bones/joints: Multiple chronic right posterior rib fractures noted. Multiple chronic left lateral and posterolateral rib fractures noted. No acute rib fractures are identified. There is mild inferior endplate compression deformity of T12 with about 20% loss of anterior vertebral body height and no retropulsion. This is age-indeterminate. Soft tissues: Soft tissues of the thoracic wall demonstrate no gross abnormality. Other findings: No effusions. IMPRESSION: 1. 11.5 mm mildly spiculated noncalcified solid pulmonary nodule in the right posterior pulmonary apex. For both low risk and high risk patients, consider CT at 3 months, PET/CT or biopsy. (Judahhonguyen, et al., Fleischner Society, 2017). 2. No evidence of associated adenopathy. 3. Mild cardiomegaly. 4. Multiple bilateral chronic rib fractures. No acute rib fractures are identified. 5. Mild inferior endplate compression deformity of T12, age-indeterminate. No retropulsion. EXAM: CT Abdomen and Pelvis Without Contrast EXAM DATE/TIME: 01/04/2019 11:17 PM CLINICAL HISTORY: 73 years old, female; Abdominal pain; Generalized; Chest wall pain; Patient HX: Chronic pain, epigastric pain, chronic ETOH TECHNIQUE: Imaging protocol: Axial computed tomography images of the abdomen and pelvis without contrast. Coronal and sagittal reformatted images were created and reviewed. Radiation optimization: All CT scans at this facility use at least one of these dose optimization techniques: automated exposure control; mA and/or kV adjustment per patient size (includes targeted exams where dose is matched to clinical indication); or iterative reconstruction. COMPARISON: CT Private^ROUTINE ABDOMEN PELVIS WITH CONTRAST (Adult) 06/26/2018 4:52 PM FINDINGS: ABDOMEN: Liver: There are innumerable poorly defined low density nodular foci distributed throughout the liver. There is no peripheral nodularity to suggest underlying hepatic cirrhosis, and the appearance raises concern for the possibility of diffuse hepatic metastasis. Previous report from CT abdomen pelvis on 06/26/2018 suggests this is a new finding. This is a new appearance compared to the postcontrast CT 06/11/2018 images. At this point, recommend further characterization with multiphase post gadolinium MRI. Gallbladder and bile ducts: Normal. No calcified stones. No ductal dilation. Pancreas: Normal. No inflammatory changes or ductal dilation. Spleen: Normal. No splenomegaly. Adrenals: Normal. No adrenal mass. Kidneys and ureters: Multiple bilateral probable renal cysts. The largest is in the anterior midpole of the right kidney measuring 2.9 cm and measuring fluid density. There is a small hyperdense 4 mm lesion in the posterior upper pole cortex of the right kidney which may represent a cyst with hemorrhagic/proteinaceous content. Post contrast CT or ultrasound could be helpful in further characterization to exclude solid features. Bilateral nonspecific perinephric stranding. Stomach and bowel: The visualized distal esophagus and stomach are normal. The small bowel is normal with no evidence of obstruction. The colon is fully contracted, limiting its assessment. Appendix: Normal. No evidence of appendicitis. PELVIS: Bladder: Unremarkable as visualized. Reproductive: Unremarkable as visualized. ABDOMEN and PELVIS: Intraperitoneal space: No free fluid or air. Bones/joints: Grade 1 anterolisthesis and moderate central canal stenosis L4-L5. Soft tissues: In the presacral distribution there is a heterogeneous 3.4 x 2.7 cm soft tissue density lesion which is unchanged from the description on the previous report from 06/26/2018. The etiology is uncertain. It does not appear to arise from the colon or uterus. It has been described on multiple prior reports and demonstrates long-term stability based on the available reports. This goes against malignancy. No local adenopathy. Vasculature: Mild atherosclerotic aortoiliac calcification without aneurysm. Lymph nodes: No adenopathy. IMPRESSION: 1. Innumerable poorly defined low density lesions throughout the liver which appear to be new from previous report description is. This raises concern for possible hepatic metastasis. Multiphase post gadolinium MRI of the liver is recommended for further characterization. 2. 3.4 cm mass in the presacral distribution remains unchanged back to 2017 description, which goes against malignancy. Considering the liver findings however, PET/CT scan maybe helpful to confirm that there is not hypermetabolic uptake if not previously performed, or previously biopsied. 3. Multiple probable renal cysts. A 4 mm lesion in the posterior upper pole cortex of the right kidney is mildly hyperdense and is probably hemorrhagic/proteinaceous cyst although this could be confirmed with greater specificity on postcontrast CT oral percent. 4. Moderate central canal stenosis L4-L5. Dictated and Authenticated by: Clarence Phipps MD. Ordering:SHADI Miller MD
[2019-01-05] MEDS: Normal Saline 1,000 ML 1000 ML IV (00:55)
[2019-01-05] MEDS: POTASSIUM CHLORIDE 20 MEQ/100 ML BAG 50 MEQ IVPB (00:55)
[2019-01-05] MEDS: LORazepam 2 MG/ML VIAL IVP (00:56)
[2019-01-05] MEDS: MAGNESIUM SULFATE 8.12 MEQ, MULTIVITAMIN 10 ML, THIAMINE 100 MG, FOLIC ACID 1 MG in Nor... 168.867 MG IV (01:24)
[2019-01-05] MEDS: Ondansetron 4 MG/2 ML VIAL IVP (01:25)
[2019-01-05] MEDS: MORPHine 10 MG/ML VIAL 4 MG IVP (01:25)
[2019-01-05] MEDS: LORazepam 2 MG/ML VIAL 1 MG IVP (01:35)
== END 2019-01-05 01:44 | disposition short-term general hospital (02) ==
PROVIDERS: Emergency Provider Student in an Organized Health Care Education/Training Program; PCP Family Medicine
DX: F10.230 Alcohol dependence with withdrawal, uncomplicated (principal); K29.20 Alcoholic gastritis without bleeding; E87.6 Hypokalemia; E83.52 Hypercalcemia; R00.0 Tachycardia, unspecified; I10 Essential (primary) hypertension
CPT/HCPCS: 36415; 71250; 80053; 83690; 93005; 96361; 96365; 96375; 96376; 99285; 71045; 74176; 80320; 84484; 85025; 93010; J2060; J2270; J2405; J3480

== ENCOUNTER 2019-01-16 01:13 | Outpatient (CLI) | payer OTHER, SELFPAY ==
[2019-01-16 13:56] LABS: CREATININE 1.63 mg/dL (0.55-1.02); Estimated GFR 31.01 (mL/min/1.73m2); Potassium 3.6 mmol/L (3.5-5.1)
[2019-01-16 14:36] LABS: Hemoglobin A1C 5.4 % (4.5-6.2)
== END 2019-01-16 01:33 ==
PROVIDERS: PCP Family Medicine; Visit Provider Family Medicine
DX: I10 Essential (primary) hypertension (principal); R73.9 Hyperglycemia, unspecified
CPT/HCPCS: 36415; 82565; 83036; 84132

== ENCOUNTER 2019-01-17 06:22 | Emergency (ER) | payer OTHER, SELFPAY ==
[2019-01-17] VITALS (29 sets, daily range): BP systolic 127–139; BP diastolic 61–76; PULSE 85–95; RESP 9–26; TEMP 36.8; O2SAT 91–100
--- NOTE | 2019-01-17 06:26 | DI.COMBO_ITS ---
SYMPTOM/DIAGNOSIS: FELL, ALCOHOL ABUSE, PAIN NONCONTRAST HEAD CT: Comparison is made with 03/30/18. There is a left frontal scalp hematoma. No fracture or intracranial hemorrhage is seen. Atrophy is again noted, unchanged. The ventricles are normal in size. The sinuses and mastoid air cells appear clear. IMPRESSION: Left frontal scalp hematoma. No acute intracranial abnormality. CERVICAL SPINE CT: There is no evidence of fracture. Advanced degenerative disc changes are seen throughout. Facet degenerative changes are also present. Stable area of scarring is seen in the right lung apex. No pneumothorax is seen. IMPRESSION: Degenerative changes. No acute abnormality. LEFT ELBOW: The exam is limited by overlying IV tubing. No fracture or dislocation is seen. IMPRESSION: Negative left elbow. RIGHT HAND: The bones appear osteopenic. There is an old healed fracture of the proximal phalanx of the index finger. No acute fracture or dislocation is seen. IMPRESSION: No acute abnormality.
[2019-01-17] MEDS: Lactated Ringers 1,000 ML 150 ML IV (06:36)
[2019-01-17] MEDS: Normal Saline Flush 10 ML SYR IVP (06:37)
[2019-01-17 06:38] LABS: Abs Immature Grans 0.01 k/cumm (0.0-0.09); Absolute Basophil Count 0.03 k/cumm (0.0-0.2); Absolute Eosinophil Count 0.15 k/cumm (0.0-0.7); Absolute Lymphocyte Count 1.02 k/cumm (1.2-3.4); Absolute Neutrophil Count 3.21 k/cumm (1.2-6.7); Basophils % 0.6; Eosinophils % 3.1; HCT 30.5 % (36.0-46.0); HGB 9.3 g/dL (12.0-15.5); Immature Grans % 0.2; Lymphocytes % 21.2; Mean Corp. HGB Concentration 30.5 g/dL (32.0-36.0); Mean Corpuscular Hemoglobin 26.8 pg (27.0-33.0); Mean Corpuscular Volume 87.9 fL (80-95); Mean Platelet Volume 8.1 fL (8.0-11.0); Monocytes % 8.3; Neutrophils % 66.6; Platelet Count 249 x1000/uL (130-400); RBC 3.47 m/cumm (4.00-5.20); RBC Distribution Width 17.6 % (11.7-14.6); White Blood Cell Count 4.82 k/cumm (4.4-10.8)
--- NOTE | 2019-01-17 06:50 | ED.GENADUL_ITS ---
Discharge Plan Disposition Patient Disposition: HOME Condition: Stable Discharge Details Chief Complaint: Trauma Clinical Impression: Head trauma, Alcohol abuse Primary Care Provider: Lavelle Galindo ED Provider: Blaze Mccarthy [place] Meds and New Rx's Prescriptions: No Action naproxen sodium [Aleve] 220 mg capsule 220 mg PO BID PRNRF: 0 valacyclovir 500 mg tablet 1,000 mg PO QAM RF: 0 potassium chloride [Klor-Con M10] 10 mEq tablet,ER particles/crystals 10 meq PO DAILY Qty: 90 RF: 3 ondansetron 4 mg tablet,disintegrating 4 mg PO QID PRN (Reason: nausea and vomiting) Qty: 20 RF: 1 fluticasone propionate 16 GM spray,suspension 1 spr NS daily prn Qty: 3 RF: 3 naltrexone 50 MG tablet 50 mg PO DAILY Qty: 30 RF: 2 pyridoxine (vitamin B6) [Vitamin B-6] 50 MG tablet 50 mg PO nightly Qty: 60 RF: 4 hydrochlorothiazide 12.5 mg tablet 12.5 mg PO DAILY Qty: 90 RF: 3 magnesium oxide 400 mg (241.3 mg magnesium) tablet 400 mg PO BID Qty: 180 RF: 3 pantoprazole 40 mg tablet,delayed release (DR/EC) 40 mg PO DAILY Qty: 90 RF: 3 ranitidine HCl 150 mg tablet 150 mg PO BID Qty: 180 RF: 3 venlafaxine 75 mg tablet 75 mg PO DAILY Qty: 30 RF: 3 venlafaxine 37.5 mg tablet 37.5 mg PO DAILY Qty: 30 RF: 3 amlodipine 10 mg tablet 10 mg PO DAILY Qty: 30 RF: 11 gabapentin 300 mg capsule 300 mg PO TID Qty: 90 RF: 5 celecoxib [Celebrex] 100 mg capsule 100 mg PO DAILY Qty: 90 RF: 1 polyethylene glycol 3350 17 GM powder in packet 17 gm PO DAILY PRN PRN (Reason: Constipation) RF: 0 folic acid 1 mg Tablet 1 mg PO DAILY Qty: 14 RF: 0 cholecalciferol (vitamin D3) 1,000 unit Tablet 2,000 units PO DAILY Qty: 14 RF: 0 thiamine mononitrate (vit B1) [Vitamin B-1 (mononitrate)] 100 mg Tablet 100 mg PO QAM Qty: 14 RF: 0 multivitamin [Multiple Vitamins] Tablet 1 tab PO DAILY Qty: 0 RF: 0 Narcan 4 mg/actuation spray,non-aerosol 1 spray EZIO ONCE PRN (Reason: opioid overdose) Qty: 2 RF: 0 Discharge Instructions Instructions: Abuse of Alcohol (ED) Additional Instructions: follow up with your primary care provider within 1-2 weeks if you have severe new pain or new weakness return to the emergency department for reevaluation Discharge Data Discharge Date/Time-TO BE ENTERED AT DEPARTURE: 01/17/19 09:49 Medical Decision Making <Wes Dc MD - Last Filed: 01/17/19 19:56> Patient here by ambulance status post fall at home with questionable LOC. She does have evidence of head trauma. She is confused but appears intoxicated. She is nonfocal neurologically otherwise. She is in an inflatable c-collar. Complains of elbow and hand pain. IV is established by EMS. Will give fluids. Laboratory studies ordered. EKG is unchanged from previous other than she now has a normal rate. Vital signs are normal. Fingerstick is normal. CT scan of head and c-spine ordered. X-rays of left elbow and right hand ordered. Laboratory studies show potassium of 2.9 and alcohol level of almost 300. Imaging studies are pending read. Will order IV potassium replacement. Will need to remain in the ED for sober eval later today. Will sign out to on coming day physician. Medical Records Medical records reviewed: Yes I reviewed the patient's medical records. Lab Data Lab results reviewed: Yes I reviewed the patient's lab results. ECG Data Attestation: I personally reviewed and interpreted this ECG (s) as follows: Prior ECG tracings: available for review Interpretation: Sinus rhythm at 84. Borderline first-degree heart block. Normal axis. No acute ST changes. No significant change from previous (01/04/19) other than rate. <Blaze Mccarthy MD - Last Filed: 01/17/19 09:45> pt now caox4 and clinically sober, has no midline c spine pain on palpation even on rom and no focal neuro deficits, cleared her c collar. She will be d/c'd, advised f/u with pcp and return precautions given HPI <Wes Dc MD - Last Filed: 01/17/19 19:56> General Mode of arrival: EMS . Date/Time Provider Initiated Documentation: 01/17/19 06:46 . Limitations to Documentation: altered mental status . Information obtained by: patient, EMS and old records reviewed . HPI Narrative: Patient brought in by ambulance status post fall at home. Patient states she was trying to feed her dog and slipped and fell because she only had socks on. There is report of loss of consciousness. She complains of head pain, elbow pain, hand pain. She is a daily drinker. She appears to be intoxicated currently and is altered. Currently no complaint of chest pain, shortness of breath, abdominal pain. Related Data Home Medications Medication Instructions Recorded Confirmed fluticasone propionate 1 spr NS daily prn #3 bottle 09/03/16 01/10/19 naltrexone 50 mg PO DAILY #30 tab-cap 11/04/17 01/10/19 pyridoxine (vitamin B6) [Vitamin 50 mg PO nightly #60 cap 11/04/17 01/10/19 B-6] polyethylene glycol 3350 17 gm PO DAILY PRN PRN packet 04/17/18 01/10/19 Narcan 1 spray EZIO ONCE PRN #2 each 06/28/18 01/10/19 multivitamin [Multiple Vitamins] 1 tab PO DAILY #0 tab 06/28/18 01/10/19 cholecalciferol (vitamin D3) 2,000 units PO DAILY #14 tab 08/11/18 01/10/19 folic acid 1 mg PO DAILY #14 tab 08/11/18 01/10/19 thiamine mononitrate (vit B1) 100 mg PO QAM #14 tab 08/11/18 01/10/19 [Vitamin B-1 (mononitrate)] valacyclovir 500 mg tablet 1,000 mg PO QAM tab 09/22/18 01/10/19 amlodipine 10 mg tablet 10 mg PO DAILY #30 tab 11/22/18 01/10/19 gabapentin 300 mg capsule 300 mg PO TID #90 cap 11/22/18 01/10/19 hydrochlorothiazide 12.5 mg tablet 12.5 mg PO DAILY #90 tab 11/22/18 01/10/19 magnesium oxide 400 mg (241.3 mg 400 mg PO BID #180 tab 11/22/18 01/10/19 magnesium) tablet pantoprazole 40 mg tablet,delayed 40 mg PO DAILY #90 tab 11/22/18 01/10/19 release ranitidine 150 mg tablet 150 mg PO BID #180 tab 11/22/18 01/10/19 venlafaxine 37.5 mg tablet 37.5 mg PO DAILY #30 tab 11/22/18 01/10/19 venlafaxine 75 mg tablet 75 mg PO DAILY #30 tab 11/22/18 01/10/19 ondansetron 4 mg disintegrating 4 mg PO QID PRN #20 tab 11/28/18 01/10/19 tablet potassium chloride ER 10 mEq 10 meq PO DAILY #90 tab 11/28/18 01/10/19 tablet,extended release(part/cryst) celecoxib 100 mg capsule 100 mg PO DAILY #90 cap 11/29/18 01/10/19 naproxen sodium 220 mg capsule 220 mg PO BID PRN 01/10/19 01/10/19 Previous Rx's Medication Instructions Recorded naltrexone 50 mg PO DAILY #30 tab-cap 11/04/17 pyridoxine (vitamin B6) [Vitamin 50 mg PO nightly #60 cap 11/04/17 B-6] polyethylene glycol 3350 17 gm PO DAILY PRN PRN packet 04/17/18 Narcan 1 spray EZIO ONCE PRN #2 each 06/28/18 multivitamin [Multiple Vitamins] 1 tab PO DAILY #0 tab 06/28/18 cholecalciferol (vitamin D3) 2,000 units PO DAILY #14 tab 08/11/18 folic acid 1 mg PO DAILY #14 tab 08/11/18 thiamine mononitrate (vit B1) 100 mg PO QAM #14 tab 08/11/18 [Vitamin B-1 (mononitrate)] amlodipine 10 mg tablet 10 mg PO DAILY #30 tab 11/22/18 gabapentin 300 mg capsule 300 mg PO TID #90 cap 11/22/18 hydrochlorothiazide 12.5 mg tablet 12.5 mg PO DAILY #90 tab 11/22/18 magnesium oxide 400 mg (241.3 mg 400 mg PO BID #180 tab 11/22/18 magnesium) tablet pantoprazole 40 mg tablet,delayed 40 mg PO DAILY #90 tab 11/22/18 release ranitidine 150 mg tablet 150 mg PO BID #180 tab 11/22/18 venlafaxine 37.5 mg tablet 37.5 mg PO DAILY #30 tab 11/22/18 venlafaxine 75 mg tablet 75 mg PO DAILY #30 tab 11/22/18 ondansetron 4 mg disintegrating 4 mg PO QID PRN #20 tab 11/28/18 tablet potassium chloride ER 10 mEq 10 meq PO DAILY #90 tab 11/28/18 tablet,extended release(part/cryst) celecoxib 100 mg capsule 100 mg PO DAILY #90 cap 11/29/18 Allergies Allergy/AdvReac Type Severity Reaction Status Date / Time Penicillins Allergy Mild Rash Unverified 01/17/19 06:30 ramipril Allergy Unknown ITCHING Unverified 01/17/19 06:30 meperidine [From Demerol] AdvReac Severe Nausea Unverified 01/17/19 06:30 bupropion AdvReac Mild GI upset Unverified 01/17/19 06:30 AMBER Inhibitors AdvReac Unknown COUGH Unverified 01/17/19 06:30 alendronate sodium AdvReac Unknown GI Distress Unverified 01/17/19 06:30 clarithromycin AdvReac Unknown intolerant Unverified 01/17/19 06:30 paroxetine AdvReac Unknown Diarrhea Unverified 01/17/19 06:30 General Stated Complaint: Trauma JORDAN: 2 Review of Systems <Wes Dc MD - Last Filed: 01/17/19 19:56> Review of Systems Unobtainable due to mental status [facility] <Wes Dc MD - Last Filed: 01/17/19 19:56> Medical History Chronic alcoholic gastritis (Chronic 10/12/17) Urinary incontinence (Chronic) Tubular adenoma of colon (Chronic 01/28/17) Sciatica (Chronic) 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) Non-cardiac chest pain (Chronic 09/21/16) Macrocytosis (Chronic 09/26/14) Genital herpes simplex (Chronic) GI bleed (Chronic 12/20/16) Elev transaminase/LDH (Chronic) Cervical radicular pain (Chronic) Cataract (Chronic 11/07/15) Anemia (Chronic 12/20/16) Allergic rhinitis (Chronic) Alcoholic ketosis (Resolved) Alcohol abuse (Chronic) Hypertension (Acute) Hyperlipidemia (Chronic) Back pain, chronic (Chronic) Depression (Chronic) Osteoarthritis (Chronic) Osteopenia (Chronic) Headache (Chronic) Wernicke encephalopathy (Chronic) GERD (gastroesophageal reflux disease) (Chronic) Falling (Chronic) Right rib fracture (Resolved) Surgical History Bladder Surgery Colonoscopy - MAC (01/28/17) EGD - MAC (12/20/16) Ligation of fallopian tube Repair bladder injury, simple Social History Smoking/Tobacco Use Status: Former Tobacco Use Alcohol Intake: current Alcohol Intake frequency: 3 or more drinks per day Drug use: Never Do you feel safe at home: Yes Do you feel safe in your relationship?: Yes Exam <Wes Dc MD - Last Filed: 01/17/19 19:56> Narrative Exam Narrative: Vitals: Normal. Const: Elderly female in NAD appears intoxicated with inflatable c-collar on. HEENT: NC with large left forehead hematoma/abrasion. Eyes: Right corneal ulcer/cloudiness with minimally reactive large pupil. Left eye normal. Neck: Inflatable collar in place. Lungs: Normal respiratory effort. Lungs are clear. No chest wall tenderness. Cor: RRR without murmur/gallop. Good radial pulses. GI: Soft. NT/ND. No guarding or rebound. Neuro: Awake and alert but seems confused. CN grossly in tact. Good strength and no focal deficit. Ext: Right hand with swelling dorsal, minimal tenderness. Left elbow with ecchymosis and skin tear but normal ROM. Mild abrasion left knee, no tenderness and normal ROM of LE. Skin: Bruising and abrasions as described. Course <Wes Dc MD - Last Filed: 01/17/19 19:56> Vital Signs Temperature 98.2 F 01/17/19 06:15 Pulse 85 01/17/19 06:15 Respiratory Rate 16 01/17/19 06:15 Blood Pressure 132/72 01/17/19 06:15 Pulse Oximetry 95 01/17/19 06:15 Temperature 98.2 F 01/17/19 06:15 Temperature Source Skin 01/17/19 06:15 Pulse 85 01/17/19 06:15 Respiratory Rate 16 01/17/19 06:15 Respiratory Effort Non-Labored 01/17/19 06:24 Respiratory Depth Normal 01/17/19 06:24 Respiratory Pattern Normal 01/17/19 06:24 Blood Pressure 132/72 01/17/19 06:15 Blood Pressure Position Supine 01/17/19 06:15 Pulse Oximetry 95 01/17/19 06:15 Oxygen Delivery Method Room Air 01/17/19 06:15 Oxygen Flow Rate 0 01/17/19 06:15 Sign Out <Wes Dc MD - Last Filed: 01/17/19 19:56> Sign Out Data: Sign Out Comment: Imaging studies are negative. Potassium is low and is being replaced. Patient signed out to Dr. Mccarthy for sober eval. Last updated by Wes Dc MD at 01/17/19 07:47
[2019-01-17 06:51] LABS: ALT 40 U/L (12-78); AST 33 U/L (15-37); Albumin 3.5 g/dL (3.4-5.0); Alkaline Phosphatase 85 U/L (46-116); Anion Gap 12.9 mmol/L (3-11); BUN 17 mg/dL (7-18); Bilirubin, Total 0.5 mg/dL (0.2-1.0); CO2 28.1 mmol/L (21.0-32.0); CREATININE 1.06 mg/dL (0.55-1.02); Calcium 9.1 mg/dL (8.5-10.1); Chloride 100 mmol/L (98-107); ETHANOL BLOOD 296.3 mg/dL (<3); Estimated GFR 50.96 (mL/min/1.73m2); Glucose 107 mg/dL (70-100); Sodium 141 mmol/L (136-145); Total Protein 6.8 g/dL (6.4-8.2)
[2019-01-17 06:52] LABS: Potassium 2.9 mmol/L (3.5-5.1)
--- NOTE | 2019-01-17 07:04 | DI.VRAD_ITS ---
EXAM: XR Left Elbow EXAM DATE/TIME: 01/17/2019 6:30 AM CLINICAL HISTORY: 73 years old, female; Injury or trauma; Fall; Initial encounter; Sprain or strain; Elbow; Left TECHNIQUE: Imaging protocol: XR Left elbow. Views: 3 or more views. COMPARISON: CR LEFT ELBOW COMPLETE 05/05/2017 5:22 PM FINDINGS: Bones/joints: Joint spaces are maintained. No appreciable elbow joint effusion. No acute fracture or dislocation. Soft tissues: No radiopaque foreign body. IMPRESSION: No acute fracture or dislocation. Dictated and Authenticated by: Pelon Marx MD. Ordering:EVE Harvey MD
--- NOTE | 2019-01-17 07:05 | DI.VRAD_ITS ---
EXAM: XR Right Hand EXAM DATE/TIME: 01/17/2019 6:30 AM CLINICAL HISTORY: 73 years old, female; Injury or trauma; Fall; Initial encounter; Sprain or strain; Hand; Right TECHNIQUE: Imaging protocol: XR Right hand. Views: 3 or more views COMPARISON: CR RIGHT HAND LIMITED 04/25/2017 1:25 PM FINDINGS: Bones/joints: No acute fracture or dislocation. Soft tissues: No radiopaque foreign body. IMPRESSION: No acute fracture or dislocation. Dictated and Authenticated by: Pelon Marx MD. Ordering:EVE Harvey MD
--- NOTE | 2019-01-17 07:13 | DI.VRAD_ITS ---
EXAM: CT Head Without Contrast EXAM DATE/TIME: 01/17/2019 6:30 AM CLINICAL HISTORY: 73 years old, female; Injury or trauma; Initial encounter; Blunt trauma (contusions or hematomas); With loss of consciousness; Not specified; Injury date: 01/17/19; Injury details: Fall from standing with loc TECHNIQUE: Imaging protocol: Axial computed tomography images of the head without contrast. Coronal and sagittal reformatted images were created and reviewed. Radiation optimization: All CT scans at this facility use at least one of these dose optimization techniques: automated exposure control; mA and/or kV adjustment per patient size (includes targeted exams where dose is matched to clinical indication); or iterative reconstruction. COMPARISON: CT HEAD CERVICAL SPINE WO 06/11/2018 1:15 PM FINDINGS: Brain: Age-related involutional changes and chronic microvascular ischemic disease. No evidence for acute transcortical infarct. No mass effect or midline shift. No extra-axial collection. No acute intracranial hemorrhage. Basal cisterns are patent. Ventricles: Normal. No ventriculomegaly. Bones/joints: No acute calvarial fracture. Sinuses: Visualized sinuses are unremarkable. No fluid levels. Mastoid air cells: Visualized mastoid air cells are well aerated. No mastoid effusion. Orbits: Right cataract surgery. Soft tissues: Left forehead scalp hematoma. No radiopaque foreign body. IMPRESSION: 1. Left forehead scalp hematoma. No radiopaque foreign body. No acute calvarial fracture. 2. No evidence for acute transcortical infarct, acute intracranial hemorrhage, or mass effect. EXAM: CT Cervical Spine Without Contrast EXAM DATE/TIME: 01/17/2019 6:30 AM CLINICAL HISTORY: 73 years old, female; Injury or trauma; Initial encounter; Blunt trauma (contusions or hematomas); With loss of consciousness; Not specified; Injury date: 01/17/19; Injury details: Fall from standing with loc TECHNIQUE: Imaging protocol: Axial computed tomography images of the cervical spine without contrast. Coronal and sagittal reformatted images were created and reviewed. Radiation optimization: All CT scans at this facility use at least one of these dose optimization techniques: automated exposure control; mA and/or kV adjustment per patient size (includes targeted exams where dose is matched to clinical indication); or iterative reconstruction. COMPARISON: CT HEAD CERVICAL SPINE WO 06/11/2018 1:15 PM FINDINGS: Vertebrae: Grade 1 anterolisthesis of C3 on C4 and C5 on C6. No acute fracture or traumatic subluxation. The atlantooccipital and atlantoaxial articulations are intact. Facet joint alignments are maintained. Discs/Spinal canal/Neural foramina: Age-related degenerative disc disease. Multilevel degenerative changes of the cervical spine. Other bones/joints: Occipital condyles are intact. Prevertebral Space: No prevertebral soft tissue swelling. Soft tissues: Unremarkable. Lungs: Stable 11 mm groundglass opacity in the right lung apex. IMPRESSION: No acute fracture or traumatic subluxation. Dictated and Authenticated by: Pelon Marx MD. Ordering:EVE Harvey MD
[2019-01-17] MEDS: Acetaminophen 325 MG TAB 650 MG PO (07:16)
[2019-01-17] MEDS: POTASSIUM CHLORIDE 10 MEQ/100 ML BAG 100 MEQ IVPB (07:17)
== END 2019-01-17 09:49 | disposition home or self-care (01) ==
PROVIDERS: Emergency Medicine; Emergency Provider Emergency Medicine; PCP Family Medicine
DX: S09.90XA Unspecified injury of head, initial encounter (principal); M25.522 Pain in left elbow; M79.641 Pain in right hand; F10.120 Alcohol abuse with intoxication, uncomplicated; I10 Essential (primary) hypertension
CPT/HCPCS: 36415; 36416; 80053; 82962; 93005; 96361; 96365; 96366; 99285; 70450; 72125; 73080; 73130; 80320; 83735; 85025; 93010; J3480

== ENCOUNTER 2019-01-24 10:39 | Emergency (ER) | payer OTHER, SELFPAY ==
--- NOTE | 2019-01-24 10:44 | ED.GENADUL_ITS ---
Discharge Plan Disposition Patient Disposition: HOME Condition: Improving Discharge Details Chief Complaint: GenMedical Clinical Impression: Alcohol abuse Primary Care Provider: Lavelle Galindo ED Provider: Moose Lafleur Home Meds and New Rx's Prescriptions: Continued naproxen sodium [Aleve] 220 mg capsule 220 mg PO BID PRNRF: 0 valacyclovir 500 mg tablet 1,000 mg PO QAM RF: 0 potassium chloride [Klor-Con M10] 10 mEq tablet,ER particles/crystals 10 meq PO DAILY Qty: 90 RF: 3 ondansetron 4 mg tablet,disintegrating 4 mg PO QID PRN (Reason: nausea and vomiting) Qty: 20 RF: 1 fluticasone propionate 16 GM spray,suspension 1 spr NS daily prn Qty: 3 RF: 3 naltrexone 50 MG tablet 50 mg PO DAILY Qty: 30 RF: 2 pyridoxine (vitamin B6) [Vitamin B-6] 50 MG tablet 50 mg PO nightly Qty: 60 RF: 4 hydrochlorothiazide 12.5 mg tablet 12.5 mg PO DAILY Qty: 90 RF: 3 magnesium oxide 400 mg (241.3 mg magnesium) tablet 400 mg PO BID Qty: 180 RF: 3 pantoprazole 40 mg tablet,delayed release (DR/EC) 40 mg PO DAILY Qty: 90 RF: 3 ranitidine HCl 150 mg tablet 150 mg PO BID Qty: 180 RF: 3 venlafaxine 75 mg tablet 75 mg PO DAILY Qty: 30 RF: 3 venlafaxine 37.5 mg tablet 37.5 mg PO DAILY Qty: 30 RF: 3 amlodipine 10 mg tablet 10 mg PO DAILY Qty: 30 RF: 11 gabapentin 300 mg capsule 300 mg PO TID Qty: 90 RF: 5 celecoxib [Celebrex] 100 mg capsule 100 mg PO DAILY Qty: 90 RF: 1 polyethylene glycol 3350 17 GM powder in packet 17 gm PO DAILY PRN PRN (Reason: Constipation) RF: 0 folic acid 1 mg Tablet 1 mg PO DAILY Qty: 14 RF: 0 cholecalciferol (vitamin D3) 1,000 unit Tablet 2,000 units PO DAILY Qty: 14 RF: 0 thiamine mononitrate (vit B1) [Vitamin B-1 (mononitrate)] 100 mg Tablet 100 mg PO QAM Qty: 14 RF: 0 multivitamin [Multiple Vitamins] Tablet 1 tab PO DAILY Qty: 0 RF: 0 Narcan 4 mg/actuation spray,non-aerosol 1 spray EZIO ONCE PRN (Reason: opioid overdose) Qty: 2 RF: 0 Discharge Instructions Instructions: Abuse of Alcohol (ED) Additional Instructions: Please follow-up with Dr. Galindo in clinic for recheck. You need to continue to your efforts to stop using alcohol. Return at any time for repeat evaluation Medical Decision Making 73-year-old female, daily drinker, with frequent visits to the emerge department including on January 17 for a fall at which point she had an unremarkable CT scan of the head. Reported by caregiver to be drinking for the past 3 days and found unresponsive at home. She arrives via EMS alert and quite cantankerous. She is interactive with staff. IV placed, patient given small amount of anxiolytic, banana bag ordered and screening labs obtained. Alcohol is greater than 200, her potassium is low at 2.8 and supplemented in the emergency department. Patient observed in the ED, interviewed by case management while in the ED, seen by substance abuse reading recovery teacher. She was observed and clinically became sob er, requested discharge to home, ambulatory and taking liquids and solids without difficulty. She is stable for discharge as per her wishes. She understands her ongoing use of alcohol will prevent treatment of her lung mass. Lab Data Lab results reviewed: Yes I reviewed the patient's lab results. Laboratory Results - last 24 hr 01/24/19 01/24/19 01/24/19 11:00 11:00 11:00 WBC 3.91 L RBC 3.71 L Hgb 9.8 L Hct 31.7 L MCV 85.4 MCH 26.4 L MCHC 30.9 L RDW 18.2 H Plt Count 246 MPV 7.9 L Immature Gran % 0.0 Neutrophils % 63.9 Lymphocytes % 26.1 Monocytes % 7.2 Eosinophils % 1.8 Basophils % 1.0 Absolute Neutrophils 2.50 Absolute Lymphocytes 1.02 L Absolute Monocytes 0.28 Absolute Eosinophils 0.07 Absolute Basophils 0.04 Differential Comment Rbc morph reviewed RBC Morphology See below Polychromasia Present Hypochromasia 1+ Anisocytosis 1+ Sodium 139 Potassium 2.8 L* Chloride 100 Carbon Dioxide 23.5 Anion Gap 15.5 H BUN 10 Creatinine 0.94 Estimated GFR/1.73 m2 58.53 Glucose 148 H Calcium 9.9 Total Bilirubin 1.2 H AST 49 H ALT 45 Alkaline Phosphatase 106 Total Protein 7.0 Albumin 3.8 Ethyl Alcohol 247.8 HPI General Mode of arrival: EMS . Date/Time Provider Initiated Documentation: 01/24/19 10:56 . Limitations to Documentation: no limitations . Information obtained by: patient and EMS . History of Present Illness 73 year old F presents to the emergency department with the chief complaint of Alcohol intoxication, 3 days of drinking, described as moderate and similar to prior episodes, Patient started experiencing this day(s) and it has been constant. Patient notes other (Patient had recent fall, CAT scan was performed on January 17 ). Patient did receive the following treatments prior to arrival, none Related Data Home Medications Medication Instructions Recorded Confirmed fluticasone propionate 1 spr NS daily prn #3 bottle 09/03/16 01/24/19 naltrexone 50 mg PO DAILY #30 tab-cap 11/04/17 01/24/19 pyridoxine (vitamin B6) [Vitamin 50 mg PO nightly #60 cap 11/04/17 01/24/19 B-6] polyethylene glycol 3350 17 gm PO DAILY PRN PRN packet 04/17/18 01/24/19 Narcan 1 spray EZIO ONCE PRN #2 each 06/28/18 01/10/19 multivitamin [Multiple Vitamins] 1 tab PO DAILY #0 tab 06/28/18 01/24/19 cholecalciferol (vitamin D3) 2,000 units PO DAILY #14 tab 08/11/18 01/24/19 folic acid 1 mg PO DAILY #14 tab 08/11/18 01/24/19 thiamine mononitrate (vit B1) 100 mg PO QAM #14 tab 08/11/18 01/24/19 [Vitamin B-1 (mononitrate)] valacyclovir 500 mg tablet 1,000 mg PO QAM tab 09/22/18 01/24/19 amlodipine 10 mg tablet 10 mg PO DAILY #30 tab 11/22/18 01/24/19 gabapentin 300 mg capsule 300 mg PO TID #90 cap 11/22/18 01/24/19 hydrochlorothiazide 12.5 mg tablet 12.5 mg PO DAILY #90 tab 11/22/18 01/24/19 magnesium oxide 400 mg (241.3 mg 400 mg PO BID #180 tab 11/22/18 01/24/19 magnesium) tablet pantoprazole 40 mg tablet,delayed 40 mg PO DAILY #90 tab 11/22/18 01/24/19 release ranitidine 150 mg tablet 150 mg PO BID #180 tab 11/22/18 01/24/19 venlafaxine 37.5 mg tablet 37.5 mg PO DAILY #30 tab 11/22/18 01/24/19 venlafaxine 75 mg tablet 75 mg PO DAILY #30 tab 11/22/18 01/24/19 ondansetron 4 mg disintegrating 4 mg PO QID PRN #20 tab 11/28/18 01/24/19 tablet potassium chloride ER 10 mEq 10 meq PO DAILY #90 tab 11/28/18 01/24/19 tablet,extended release(part/cryst) celecoxib 100 mg capsule 100 mg PO DAILY #90 cap 11/29/18 01/24/19 naproxen sodium 220 mg capsule 220 mg PO BID PRN 01/10/19 01/24/19 Previous Rx's Medication Instructions Recorded naltrexone 50 mg PO DAILY #30 tab-cap 11/04/17 pyridoxine (vitamin B6) [Vitamin 50 mg PO nightly #60 cap 11/04/17 B-6] polyethylene glycol 3350 17 gm PO DAILY PRN PRN packet 04/17/18 Narcan 1 spray EZIO ONCE PRN #2 each 06/28/18 multivitamin [Multiple Vitamins] 1 tab PO DAILY #0 tab 06/28/18 cholecalciferol (vitamin D3) 2,000 units PO DAILY #14 tab 08/11/18 folic acid 1 mg PO DAILY #14 tab 08/11/18 thiamine mononitrate (vit B1) 100 mg PO QAM #14 tab 08/11/18 [Vitamin B-1 (mononitrate)] amlodipine 10 mg tablet 10 mg PO DAILY #30 tab 11/22/18 gabapentin 300 mg capsule 300 mg PO TID #90 cap 11/22/18 hydrochlorothiazide 12.5 mg tablet 12.5 mg PO DAILY #90 tab 11/22/18 magnesium oxide 400 mg (241.3 mg 400 mg PO BID #180 tab 11/22/18 magnesium) tablet pantoprazole 40 mg tablet,delayed 40 mg PO DAILY #90 tab 11/22/18 release ranitidine 150 mg tablet 150 mg PO BID #180 tab 11/22/18 venlafaxine 37.5 mg tablet 37.5 mg PO DAILY #30 tab 11/22/18 venlafaxine 75 mg tablet 75 mg PO DAILY #30 tab 11/22/18 ondansetron 4 mg disintegrating 4 mg PO QID PRN #20 tab 11/28/18 tablet potassium chloride ER 10 mEq 10 meq PO DAILY #90 tab 11/28/18 tablet,extended release(part/cryst) celecoxib 100 mg capsule 100 mg PO DAILY #90 cap 11/29/18 Allergies Allergy/AdvReac Type Severity Reaction Status Date / Time Penicillins Allergy Mild Rash Unverified 01/24/19 12:48 ramipril Allergy Unknown ITCHING Unverified 01/24/19 12:48 meperidine [From Demerol] AdvReac Severe Nausea Unverified 01/24/19 12:48 bupropion AdvReac Mild GI upset Unverified 01/24/19 12:48 AMBER Inhibitors AdvReac Unknown COUGH Unverified 01/24/19 12:48 alendronate sodium AdvReac Unknown GI Distress Unverified 01/24/19 12:48 clarithromycin AdvReac Unknown intolerant Unverified 01/24/19 12:48 paroxetine AdvReac Unknown Diarrhea Unverified 01/24/19 12:48 General JORDAN: 2 Review of Systems Review of Systems Unobtainable due to mental status [facility] Medical History Chronic alcoholic gastritis (Chronic 10/12/17) Urinary incontinence (Chronic) Tubular adenoma of colon (Chronic 01/28/17) Sciatica (Chronic) 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) Non-cardiac chest pain (Chronic 09/21/16) Macrocytosis (Chronic 09/26/14) Genital herpes simplex (Chronic) GI bleed (Chronic 12/20/16) Elev transaminase/LDH (Chronic) Cervical radicular pain (Chronic) Cataract (Chronic 11/07/15) Anemia (Chronic 12/20/16) Allergic rhinitis (Chronic) Alcoholic ketosis (Resolved) Alcohol abuse (Chronic) Hypertension (Acute) Hyperlipidemia (Chronic) Back pain, chronic (Chronic) Depression (Chronic) Osteoarthritis (Chronic) Osteopenia (Chronic) Headache (Chronic) Wernicke encephalopathy (Chronic) GERD (gastroesophageal reflux disease) (Chronic) Falling (Chronic) Right rib fracture (Resolved) Surgical History Bladder Surgery Colonoscopy - MAC (01/28/17) EGD - MAC (12/20/16) Ligation of fallopian tube Repair bladder injury, simple Family History Mother No problems noted. Father No problems noted. Sister Personal history of malignant neoplasm Sister No problems noted. Grandfather Personal history of malignant neoplasm Grandfather Personal history of malignant neoplasm Grandmother Heart disease Acute ill-defined cerebrovascular disease Grandmother Personal history of malignant neoplasm Aunt Heart disease Aunt Heart disease Brother No problems noted. Social History Smoking/Tobacco Use Status: Former Tobacco Use Alcohol Intake: current Alcohol Intake frequency: 3 or more drinks per day Drug use: Never Do you feel safe at home: Yes Do you feel safe in your relationship?: Yes Additional Social history: my caregiver is an anxiety attack person Exam Narrative Exam Narrative: GEN: awake, poorly groomed, interactive. HEAD: Normocephalic, bilateral periorbital ecchymosis, left face ecchymosis ENT: Mucous membranes moist, oropharynx unremarkable, External ear exam unremarkable. No midface instability or tenderness EYES: PERRL, EOMI NECK: Full ROM, no CANDY, no menigismus CHEST/RESP: Nontender, clear to auscultation bilateral, no wheeze/rhonchi/rales CARDIOVASCULAR: RRR, no murmur, rub shirin. 2+ Rad pulse bilateral ABDOMEN: Soft, nontender, no mass. +Bowel sounds EXT: Full ROM, no edema, no rash Neuro: Grossly normal neurologic exam, conversant, interactive. Psych: Speech slurred
[2019-01-24 10:58] VITALS: BP 148/79; PULSE 102; RESP 16; TEMP 36.6; O2SAT 97
[2019-01-24 11:12] LABS: Absolute Basophil Count 0.04 k/cumm (0.0-0.2); Absolute Eosinophil Count 0.07 k/cumm (0.0-0.7); Absolute Lymphocyte Count 1.02 k/cumm (1.2-3.4); Absolute Monocyte Count 0.28 k/cumm (0.11-0.7); Eosinophils % 1.8; HCT 31.7 % (36.0-46.0); HGB 9.8 g/dL (12.0-15.5); Lymphocytes % 26.1; Mean Corp. HGB Concentration 30.9 g/dL (32.0-36.0); Mean Corpuscular Hemoglobin 26.4 pg (27.0-33.0); Mean Corpuscular Volume 85.4 fL (80-95); Mean Platelet Volume 7.9 fL (8.0-11.0); Monocytes % 7.2; Neutrophils % 63.9; Platelet Count 246 x1000/uL (130-400); RBC 3.71 m/cumm (4.00-5.20); RBC Distribution Width 18.2 % (11.7-14.6); White Blood Cell Count 3.91 k/cumm (4.4-10.8)
[2019-01-24] MEDS: MAGNESIUM SULFATE 8.12 MEQ, MULTIVITAMIN 10 ML, THIAMINE 100 MG, FOLIC ACID 1 MG in Nor... 168.867 MG IV (11:15)
[2019-01-24] MEDS: LORazepam 2 MG/ML VIAL 1 MG IVP (11:15)
[2019-01-24 11:22] LABS: ETHANOL BLOOD 247.8 mg/dL (<3)
[2019-01-24 11:24] LABS: Anisocytosis 1+; Diff Comment RBC Morph Reviewed; Hypochromasia 1+; Polychromasia Present
[2019-01-24 11:25] LABS: ALT 45 U/L (12-78); AST 49 U/L (15-37); Albumin 3.8 g/dL (3.4-5.0); Alkaline Phosphatase 106 U/L (46-116); Anion Gap 15.5 mmol/L (3-11); BUN 10 mg/dL (7-18); Bilirubin, Total 1.2 mg/dL (0.2-1.0); CO2 23.5 mmol/L (21.0-32.0); CREATININE 0.94 mg/dL (0.55-1.02); Calcium 9.9 mg/dL (8.5-10.1); Chloride 100 mmol/L (98-107); Estimated GFR 58.53 (mL/min/1.73m2); Glucose 148 mg/dL (70-100); Sodium 139 mmol/L (136-145)
[2019-01-24 11:28] LABS: Potassium 2.8 mmol/L (3.5-5.1)
[2019-01-24] MEDS: POTASSIUM CHLORIDE 20 MEQ/100 ML BAG 50 MEQ IVPB (11:55)
[2019-01-24] MEDS: Potassium Chloride 20 MEQ TABCR PO (11:55)
[2019-01-24 12:51] VITALS: RESP 16
--- NOTE | 2019-01-25 07:51 | PDOC.ERCMPRO ---
Care Management Progress Note 01/25-Note for 01/24 Leticia presents to the emergency department today for multiple falls, she is intoxicated (Please see provider note). This CM met with Leticia.Leticia is lying in bed, has a patch over her eye. When asked what happened to her eye she stated, I ripped my cornea one morning by rubbing it. I went to Dr. Merritt but he shipped me to [place] and I was there for 15 days. Leticia states she had a recent diagnosis of lung cancer, saw oncology last week. Surgeons have told her they would do surgery if she is three months sober. Leticia hasn't taken any of her meds for four days. She does have a caregiver that comes every day, Armida [phone] or [phone]. Julia states that Armida does housework and animal care (she has one dog and four cats) and keeps in touch with her son Bennie. Leticia states she had a PET scan at [facility], Dr. Randhawa and she states she was told she had nodules throughout her body but mostly in her upper right lung. Discussed her alcoholism and if she wanted treatment. Leticia stated she has been going to AA but it is not helping. Asked how she gets her alcohol and she stated she walks to the store and purchases it herself. Discussed elementary instructional coach with Dr. Lafleur and he asked for them to come in and see Leticia for which they did. Julia states, I'm alone most of the time and watch a lot of TV, I'm bored so I drink. Discussed going to [place]. 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 Leticia uses [facility] for transportation. After being cleared by Dr. Lafleur, Leticia was discharged home. This CM asked access to update demographics, Chela Ingram, , [place], [place].
--- NOTE | 2019-01-25 08:04 | CMPROGNOTE_ITS ---
Care Management Progress Note 01/25-Note for 01/24 Leticia presents to the emergency department today for multiple falls, she is intoxicated (Please see provider note). This CM met with Leticia.Leticia is lying in bed, has a patch over her eye. When asked what happened to her eye she stated, I ripped my cornea one morning by rubbing it. I went to Dr. eMrritt but he shipped me to [place] and I was there for 15 days. Leticia states she had a recent diagnosis of lung cancer, saw oncology last week. Surgeons have told her they would do surgery if she is three months sober. Leticia hasn't taken any of her meds for four days. She does have a caregiver that comes every day, Armida [phone] or [phone]. Julia states that Armida does housework and animal care (she has one dog and four cats) and keeps in touch with her son Bennie. Leticia states she had a PET scan at [facility], Dr. Randhawa and she states she was told she had nodules throughout her body but mostly in her upper right lung. Discussed her alcoholism and if she wanted treatment. Leticia stated she has been going to AA but it is not helping. Asked how she gets her alcohol and she stated she walks to the store and purchases it herself. Discussed coach professional athletes with Dr. Lafleur and he asked for them to come in and see Leticia for which they did. Julia states, I'm alone most of the time and watch a lot of TV, I'm bored so I drink. Discussed going to [place]. 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 Leticia uses [facility] for transportation. After being cleared by Dr. Lafelur, Leticia was discharged home. This CM asked access to update demographics, Chela Ingram, , [place], [place].
== END 2019-01-24 14:24 | disposition home or self-care (01) ==
PROVIDERS: Emergency Provider Emergency Medicine; PCP Family Medicine
DX: F10.220 Alcohol dependence with intoxication, uncomplicated (principal); R19.12 Hyperactive bowel sounds
CPT/HCPCS: 36415; 80053; 96365; 96366; 96368; 96375; 99284; 80320; 85025; J2060; J3480

== ENCOUNTER 2019-02-02 10:23 | Outpatient (CLI) | payer OTHER, SELFPAY ==
[2019-02-02 11:14] LABS: Bilirubin Negative (Negative); Blood Negative (Negative); Clarity Cloudy; Glucose Negative (Negative); Ketones Trace mg/dL (Negative); Leukocyte Esterase Small (Negative); Nitrite Positive (Negative); Specific Gravity 1.015 (1.005-1.025); Urobilinogen 0.2 EU/dL (Up TO 0.2); pH 5.5 (5-8)
[2019-02-02 11:26] LABS: Bacteria Packed HPF (Negative); C & S Indicated? C&S Done As Ordered
[2019-02-05 13:33] LABS: Albumin 62.5 % (55.8-66.1); Total Protein 6.7 g/dl (6.3-8.2)
== END 2019-02-02 10:43 ==
PROVIDERS: PCP Family Medicine; Visit Provider Family Medicine
DX: N28.9 Disorder of kidney and ureter, unspecified (principal); R32 Unspecified urinary incontinence; R30.0 Dysuria
CPT/HCPCS: 36415; 87077; 81003; 81015; 84165; 87086; 87186

== ENCOUNTER 2019-03-11 06:33 | Emergency (ER) | payer OTHER, SELFPAY ==
[2019-03-11] VITALS (42 sets, daily range): BP systolic 82–127; BP diastolic 43–76; PULSE 99–170; RESP 17–43; TEMP 36.4–36.7; O2SAT 91–98
--- NOTE | 2019-03-11 06:52 | DI.CT_ITS ---
SYMPTOMS/DIAGNOSIS: TRAUMA, GROUND LEVEL FALL CT BRAIN: Noncontrast. Comparison 01/17/19. There is cerebral atrophy and small vessel ischemic disease consistent with the patient's age. No acute intracranial hemorrhage, midline shift or mass effect. The ventricles are intact. The basilar cisterns are patent. No fluid levels are seen in the sinuses. The mastoid air cells are clear. The calvarium is intact. There are old depressed bilateral nasal bone fractures. These are unchanged. IMPRESSION: No acute intracranial process. CT OF THE CERVICAL SPINE: Multiple contiguous axial images of the cervical spine were obtained. Sagittal and coronal reformatted images were evaluated on the Siemens workstation. No acute fracture or traumatic subluxation is seen. Severe degenerative changes are present throughout the cervical spine. There is anterolisthesis of C 3 on C 4 and C 5 on C 6. This is likely due to degenerative changes. The bones appear osteopenic. There is no prevertebral soft tissue swelling. IMPRESSION: No acute fracture or subluxation of the cervical spine. CT SCAN OF THE CHEST, ABDOMEN AND PELVIS: CT scan of the chest, abdomen and pelvis was performed without intravenous contrast material. The lack of IV contrast does limit evaluation for abdominal or pelvic organ injury. CT SCAN OF THE ABDOMEN AND PELVIS: Comparison is 06/26/18. There is hepatic steatosis. The liver is otherwise unremarkable. The gallbladder is negative. There is no biliary ductal dilatation. There is patient motion artifact which does limit evaluation of the examination. The pancreas, spleen, adrenal glands, kidneys, ureters and bladder are all unremarkable. The reproductive organs are unremarkable as visualized. No significant abdominal or pelvic adenopathy, ascites or pneumoperitoneum is seen. The abdominal aorta is of normal caliber. There is an old compression deformity of the inferior endplate of T 12. No acute fractures in the lumbar spine or pelvis are noted. Multi-level degenerative changes are seen in the lumbar spine. There is grade I pseudospondylolisthesis of L 4 on L 5. There is multi-level central and neural foraminal stenosis. The findings are most marked at L 4 - 5. If there is concern for radiculopathy, a nonemergent MRI of the lumbar spine may be obtained. IMPRESSION: Noncontrast examination of the abdomen and pelvis shows no acute abnormality. Lack of IV contrast does limit evaluation of the abdominal and pelvic organs. Incidental findings in the abdomen and pelvis as described above. CT OF THE CHEST: The thoracic aorta appears grossly unremarkable. The heart size is within normal limits. No significant pericardial effusion is seen. No significant thoracic adenopathy is present. There is a large left hemothorax. There is consolidation involving the left lower lobe. This may represent contusion, atelectasis or pneumonia. There is a nodular opacity seen in the right upper lobe measuring 0.9 cm. This was present on the prior CT scan of the chest from 01/04/19. The tracheobronchial tree is unremarkable. There are multiple old healed fractures present. There are acute fractures of the posterior aspect of the left 6th, 7th, 8th and 9th ribs. The 7th rib is comminuted and displaced. There are healed old right rib fractures. IMPRESSION: 1. Acute fractures involving the left 6th through 9th ribs. 2. Large left hemothorax. 3. Large area of consolidation involving the left lower lobe. This may represent contusion, atelectasis or pneumonia.
--- NOTE | 2019-03-11 06:54 | ED.GENADUL_ITS ---
Discharge Plan Disposition Patient Disposition: STEVE HOYOS ([facility]) Condition: Improving Discharge Details Chief Complaint: Trauma Clinical Impression: Hemothorax, Left rib fracture, Renal failure, High anion gap metabolic acidosis, Fall, Acute dehydration, Chronic alcohol abuse, Transaminitis, Bulging lumbar disc Primary Care Provider: Lavelle Galindo ED Provider: Paul Chavira Home Meds and New Rx's Prescriptions: No Action naproxen sodium [Aleve] 220 mg capsule 220 mg PO BID PRNRF: 0 valacyclovir 500 mg tablet 1,000 mg PO QAM RF: 0 potassium chloride [Klor-Con M10] 10 mEq tablet,ER particles/crystals 10 meq PO DAILY Qty: 90 RF: 3 ondansetron 4 mg tablet,disintegrating 4 mg PO QID PRN (Reason: nausea and vomiting) Qty: 20 RF: 1 fluticasone propionate 16 GM spray,suspension 1 spr NS daily prn Qty: 3 RF: 3 naltrexone 50 MG tablet 50 mg PO DAILY Qty: 30 RF: 2 pyridoxine (vitamin B6) [Vitamin B-6] 50 MG tablet 50 mg PO nightly Qty: 60 RF: 4 hydrochlorothiazide 12.5 mg tablet 12.5 mg PO DAILY Qty: 90 RF: 3 magnesium oxide 400 mg (241.3 mg magnesium) tablet 400 mg PO BID Qty: 180 RF: 3 pantoprazole 40 mg tablet,delayed release (DR/EC) 40 mg PO DAILY Qty: 90 RF: 3 ranitidine HCl 150 mg tablet 150 mg PO BID Qty: 180 RF: 3 venlafaxine 75 mg tablet 75 mg PO DAILY Qty: 30 RF: 3 venlafaxine 37.5 mg tablet 37.5 mg PO DAILY Qty: 30 RF: 3 amlodipine 10 mg tablet 10 mg PO DAILY Qty: 30 RF: 11 gabapentin 300 mg capsule 300 mg PO TID Qty: 90 RF: 5 celecoxib [Celebrex] 100 mg capsule 100 mg PO DAILY Qty: 90 RF: 1 polyethylene glycol 3350 17 GM powder in packet 17 gm PO DAILY PRN PRN (Reason: Constipation) RF: 0 folic acid 1 mg Tablet 1 mg PO DAILY Qty: 14 RF: 0 cholecalciferol (vitamin D3) 1,000 unit Tablet 2,000 units PO DAILY Qty: 14 RF: 0 thiamine mononitrate (vit B1) [Vitamin B-1 (mononitrate)] 100 mg Tablet 100 mg PO QAM Qty: 14 RF: 0 multivitamin [Multiple Vitamins] Tablet 1 tab PO DAILY Qty: 0 RF: 0 Narcan 4 mg/actuation spray,non-aerosol 1 spray EZIO ONCE PRN (Reason: opioid overdose) Qty: 2 RF: 0 Medical Decision Making <Wes Dc MD - Last Filed: 03/11/19 07:43> IV established and LR hung. 1 L bolus ordered to be given. Laboratory studies obtained. Will scan head, C-spine, chest/abdomen/pelvis for trauma. Send urine for possible UTI. Reevaluate vitals after first liter of LR in. 07:45 - Laboratory studies are significant for an anemia which is about a point lower and hemoglobin than usual. She has significant AMBER with a creatinine up over 3. Anion gap is up over 30. Liver function studies are all elevated. CK and troponin are negative. Alcohol is 0. Vital signs are starting to normalize with fluids. We will continue LR at 150 an hour after the first liter bolus. CT scan changed to noncontrast studies. Lab Data Lab results reviewed: Yes I reviewed the patient's lab results. ECG Data Attestation: I personally reviewed and interpreted this ECG (s) as follows: Prior ECG tracings: not available for review Interpretation: Sinus tachycardia at 117. Normal axis and intervals. Nonspecific ST depression but no acute elevation <Paul Chavira DO - Last Filed: 03/11/19 09:25> Upon my evaluation, this patient had a high probability of imminent or life- threatening deterioration, which required my direct attention, intervention, and personal management. I have personally provided 45 minutes of critical care time exclusive of time spent on separately billable procedures. Time includes review of laboratory data, radiology results, discussion with consultants, and monitoring for potential decompensation. Interventions were performed as documented above. The case was signed out to me this morning by my colleague Dr. Dc pending imaging results. CT scan results have returned, and per virtual radiology shows no evidence of acute intracranial bleed, or fracture dislocation of the head or C-spine. Chest abdomen pelvis demonstrates evidence of acute displaced posterior and lateral rib fractures of 6789, left hemothorax that is large, and consolidation in the lower lobe which may represent contusion atelectasis or pneumonia. On reassessment the patient's oxygen saturation is 99% on 2 L, respiration rate has normalized to 20, blood pressure right now is 120/70 systolic. She is hemodynamically stable. Heart rate is 105. Review of her labs demonstrates evidence of no white count, hemoglobin 8.6, platelets are 266, VBG shows a pH of 7.09, anion gap is 33, bicarb is 11 suggesting a notable metabolic acidosis, in the setting of a creatinine of 3.8, notable transaminitis, lipase normal, troponin normal, suspect rhabdomyolysis. Se icylates and acetaminophen levels were ordered, alcohol was ordered, all levels are negative. CPK is 76. urinalysis shows mild urinary tract infection. I feel that the patient is suffering from moderate dehydration, organ failure secondary to dehydration, significant hemothorax multiple rib fractures. Electrolytes are stable at this time. Urine function is demonstrating small output, but she is still making urine. We will place a Lopez catheter for control measurement. CT scan also shows evidence of broad-based disc bulge at L4-L5, however exam shows no signs of cauda equina syndrome at this time clinically. I do feel that her acidosis is not secondary to DKA, sugars have improved to the low 200s with fluid, she does not smell of ketones. I feel renal failure and dehydration and chronic alcoholic ketoacidosis is the cause of her anion gap metabolic acidosis. We did contact the hospitalist here, and because of the patient's multiple medical comorbidities and current problems we have no ICU beds available and the patient is not appropriate to stay here. We did contact [facility] center stated that the ED charge nurse was requiring 1 hour until call back for conversation due to their current patient burden. We did contact the [facility], and discussed the case with their ED staff/trauma staff Dr. Anderson, he agrees with the current assessment and plan. I did discuss placing chest tube here versus at [facility], because she is currently hemodynamically stable, shows no signs of acute respiratory distress, and shows actual improving of her vital signs, Dr. Anderson feels that we can hold off on the chest tube here and wait until she arrives at the [facility]. Patient will be transferred via hydrate thickener operator. I have extensively reviewed the treatment plan with the patient. I have addressed all patient concerns at this time. I have also discussed the plan with the admitting physician and they agree with the current assessment and plan and have agreed to assume responsibility for the patient. All parties demonstrate verbal understanding and agreement with our assessment and plan at this time. At time of transfer the patient was reassessed and continued to demonstrate current medical stability. No signs of acute respiratory distress requiring intubation, hemodynamic instability requiring pressor support, or rapidly declining mental status. The patient is stable for transport. Candidate vein examined with linear array probe - confirmed collapsibility, lack of pulsatility, and proper anatomic location. Using aseptic technique, IV c atheter inserted with flash of blood noted, flow of venous blood confirmed. Flushes easily and without pain. No hematoma or complications noted. IV secured. Patient tolerated well. FINDINGS: Brain: Age-related involutional changes and chronic microvascular ischemic disease. No evidence for acute transcortical infarct. No mass effect or midline shift. No extra-axial collection. No acute intracranial hemorrhage. Basal cisterns are patent. Ventricles: Normal. No ventriculomegaly. Bones/joints: Unremarkable. No acute fracture. Sinuses: Visualized sinuses are unremarkable. No fluid levels. Mastoid air cells: Visualized mastoid air cells are well aerated. No mastoid effusion. Orbits: Right cataract surgery. Soft tissues: Unremarkable. IMPRESSION: No evidence for acute transcortical infarct, acute intracranial hemorrhage, or mass effect. FINDINGS: Vertebrae: No acute fracture or traumatic subluxation. No spondylolisthesis. The atlantooccipital and atlantoaxial articulations are intact. Facet joint alignments are maintained. Discs/Spinal canal/Neural foramina: Age-related degenerative disc disease. Multilevel degenerative changes of the cervical spine. Other bones/joints: Occipital condyles are intact. Prevertebral Space: No prevertebral soft tissue swelling. Soft tissues: Unremarkable. Lungs: Lung apices are normal. Pleural space: Large left pleural effusion. IMPRESSION: No acute fracture or traumatic subluxation. Thank you for allowing us to participate in the care of your patient. Dictated and Authenticated by: Pelon Marx MD 03/11/ FINDINGS: Lungs: Consolidation in the left lower lobe may represent contusion, atelectasis, or pneumonia. Pleural space: Large left hemothorax. Heart: Unremarkable. No cardiomegaly. No pericardial effusion. Aorta: Unremarkable. No aortic aneurysm. Lymph nodes: Unremarkable. No enlarged lymph nodes. Bones/joints: Acute Displaced posterior and lateral left rib fractures:, 6, 7, 8, 9. Healed bilateral rib fractures Soft tissues: Unremarkable. 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 acute Displaced posterior and lateral left rib fractures:, 6, 7, 8, 9. 2. Large left hemothorax. 3. Consolidation in the left lower lobe may represent contusion, atelectasis, or pneumonia. FINDINGS: Liver: Normal. No mass. Gallbladder and bile ducts: Normal. No calcified stones. No ductal dilation. Pancreas: Normal. No ductal dilation. Spleen: Normal. No splenomegaly. Adrenals: Normal. No mass. Kidneys and ureters: Normal. No hydronephrosis. Stomach and bowel: Normal. No obstruction. No mucosal thickening. Appendix: No evidence of appendicitis. Intraperitoneal space: Normal. No free air. No significant fluid collection. Vasculature: Normal. No abdominal aortic aneurysm. Lymph nodes: Normal. No enlarged lymph nodes. Bladder: Unremarkable as visualized. Reproductive: Unremarkable as visualized. Bones/joints: Chronic compression fracture of the inferior endplate of T12. Broad-based disc bulge, facet hypertrophy, and ligament hypertrophy at L4/L5 consistent with spinal stenosis. Soft tissues: Unremarkable. Other findings: Motion artifact degrades images IMPRESSION: Broad-based disc bulge, facet hypertrophy, and ligament hypertrophy at L4/L5 consistent with spinal stenosis. Recommend MRI for further evaluation. Thank you for allowing us to participate in the care of your patient. Dictated and Authenticated by: Fauzia Barfield MD 03/11/2019 8:24 AM Eastern Time ([place] & [place]) HPI <Wes Dc MD - Last Filed: 03/11/19 07:43> General Mode of arrival: EMS . Date/Time Provider Initiated Documentation: 03/11/19 06:40 . Limitations to Documentation: no limitations . Information obtained by: patient, EMS and RN notes reviewed . HPI Narrative: Patient brought in by EMS after calling 911 after being on the floor for the last 3 or 4 hours. She reports that she fell but cannot tell me how. She reports no food or drink for the last couple of days. She typically drinks alcohol on a regular basis. She reports no alcohol for the last couple of days. She is complaining of left shoulder and left sided rib and back pain. She denies headache or neck pain. She denies abdominal pain. She has some difficulty breathing because of pain in her ribs and back. She can not give me a reason as to why she has not been eating and drinking. She also cannot tell me why she fell. She does know where she is and who she is but does not know the date. Related Data Home Medications Medication Instructions Recorded Confirmed fluticasone propionate 1 spr NS daily prn #3 bottle 09/03/16 03/09/19 naltrexone 50 mg PO DAILY #30 tab-cap 11/04/17 03/09/19 pyridoxine (vitamin B6) [Vitamin 50 mg PO nightly #60 cap 11/04/17 03/09/19 B-6] polyethylene glycol 3350 17 gm PO DAILY PRN PRN packet 04/17/18 03/09/19 Narcan 1 spray EZIO ONCE PRN #2 each 06/28/18 03/09/19 multivitamin [Multiple Vitamins] 1 tab PO DAILY #0 tab 06/28/18 03/09/19 cholecalciferol (vitamin D3) 2,000 units PO DAILY #14 tab 08/11/18 03/09/19 folic acid 1 mg PO DAILY #14 tab 08/11/18 03/09/19 thiamine mononitrate (vit B1) 100 mg PO QAM #14 tab 08/11/18 03/09/19 [Vitamin B-1 (mononitrate)] valacyclovir 500 mg tablet 1,000 mg PO QAM tab 09/22/18 03/09/19 amlodipine 10 mg tablet 10 mg PO DAILY #30 tab 11/22/18 03/09/19 gabapentin 300 mg capsule 300 mg PO TID #90 cap 11/22/18 03/09/19 hydrochlorothiazide 12.5 mg tablet 12.5 mg PO DAILY #90 tab 11/22/18 03/09/19 magnesium oxide 400 mg (241.3 mg 400 mg PO BID #180 tab 11/22/18 03/09/19 magnesium) tablet pantoprazole 40 mg tablet,delayed 40 mg PO DAILY #90 tab 11/22/18 03/09/19 release ranitidine HCl 150 mg tablet 150 mg PO BID #180 tab 11/22/18 03/09/19 venlafaxine 37.5 mg tablet 37.5 mg PO DAILY #30 tab 11/22/18 03/09/19 venlafaxine 75 mg tablet 75 mg PO DAILY #30 tab 11/22/18 03/09/19 ondansetron 4 mg disintegrating 4 mg PO QID PRN #20 tab 11/28/18 03/09/19 tablet potassium chloride 10 mEq 10 meq PO DAILY #90 tab 11/28/18 03/09/19 tablet,extended release(part/cryst) celecoxib 100 mg capsule 100 mg PO DAILY #90 cap 11/29/18 03/09/19 naproxen sodium 220 mg capsule 220 mg PO BID PRN 01/10/19 03/09/19 Previous Rx's Medication Instructions Recorded naltrexone 50 mg PO DAILY #30 tab-cap 11/04/17 pyridoxine (vitamin B6) [Vitamin 50 mg PO nightly #60 cap 11/04/17 B-6] polyethylene glycol 3350 17 gm PO DAILY PRN PRN packet 04/17/18 Narcan 1 spray EZIO ONCE PRN #2 each 06/28/18 multivitamin [Multiple Vitamins] 1 tab PO DAILY #0 tab 06/28/18 cholecalciferol (vitamin D3) 2,000 units PO DAILY #14 tab 08/11/18 folic acid 1 mg PO DAILY #14 tab 08/11/18 thiamine mononitrate (vit B1) 100 mg PO QAM #14 tab 08/11/18 [Vitamin B-1 (mononitrate)] amlodipine 10 mg tablet 10 mg PO DAILY #30 tab 11/22/18 gabapentin 300 mg capsule 300 mg PO TID #90 cap 11/22/18 hydrochlorothiazide 12.5 mg tablet 12.5 mg PO DAILY #90 tab 11/22/18 magnesium oxide 400 mg (241.3 mg 400 mg PO BID #180 tab 11/22/18 magnesium) tablet pantoprazole 40 mg tablet,delayed 40 mg PO DAILY #90 tab 11/22/18 release ranitidine HCl 150 mg tablet 150 mg PO BID #180 tab 11/22/18 venlafaxine 37.5 mg tablet 37.5 mg PO DAILY #30 tab 11/22/18 venlafaxine 75 mg tablet 75 mg PO DAILY #30 tab 11/22/18 ondansetron 4 mg disintegrating 4 mg PO QID PRN #20 tab 11/28/18 tablet potassium chloride 10 mEq 10 meq PO DAILY #90 tab 11/28/18 tablet,extended release(part/cryst) celecoxib 100 mg capsule 100 mg PO DAILY #90 cap 11/29/18 Allergies Allergy/AdvReac Type Severity Reaction Status Date / Time Penicillins Allergy Mild Rash Unverified 03/11/19 09:20 ramipril Allergy Unknown ITCHING Unverified 03/11/19 09:20 meperidine [From Demerol] AdvReac Severe Nausea Unverified 03/11/19 09:20 bupropion AdvReac Mild GI upset Unverified 03/11/19 09:20 AMBER Inhibitors AdvReac Unknown COUGH Unverified 03/11/19 09:20 alendronate sodium AdvReac Unknown GI Distress Unverified 03/11/19 09:20 clarithromycin AdvReac Unknown intolerant Unverified 03/11/19 09:20 paroxetine AdvReac Unknown Diarrhea Unverified 03/11/19 09:20 General Stated Complaint: Trauma JORDAN: 3 Review of Systems <Wes Dc MD - Last Filed: 03/11/19 07:43> Review of Systems Unobtainable due to mental status (patient seems mildly confused and is not answering all questions) PFS <Wes Dc MD - Last Filed: 03/11/19 07:43> Medical History Alcohol abuse (Chronic) Alcoholic ketosis (Resolved) Allergic rhinitis (Chronic) Anemia (Chronic 12/20/16) Back pain, chronic (Chronic) Cataract (Chronic 11/07/15) Cervical radicular pain (Chronic) Chronic alcoholic gastritis (Chronic 10/12/17) Depression (Chronic) Elev transaminase/LDH (Chronic) Falling (Chronic) Genital herpes simplex (Chronic) GERD (gastroesophageal reflux disease) (Chronic) GI bleed (Chronic 12/20/16) Headache (Chronic) Hyperlipidemia (Chronic) Hypertension (Chronic) Macrocytosis (Chronic 09/26/14) Non-cardiac chest pain (Chronic 09/21/16) Osteoarthritis (Chronic) Osteopenia (Chronic) 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) Right rib fracture (Resolved) Sciatica (Chronic) Tubular adenoma of colon (Chronic 01/28/17) Urinary incontinence (Chronic) Wernicke encephalopathy (Chronic) Surgical History Bladder Surgery Colonoscopy - MAC (01/28/17) EGD - MAC (12/20/16) Ligation of fallopian tube Repair bladder injury, simple Social History Smoking/Tobacco Use Status: Former Tobacco Use Alcohol Intake: current Alcohol Intake frequency: 3 or more drinks per day Drug use: Never Details: Do you feel safe at home: Yes Do you feel safe in your relationship?: Yes Additional Social history: my caregiver is an anxiety attack person Exam <Wes Dc MD - Last Filed: 03/11/19 07:43> Narrative Exam Narrative: Vitals: She is afebrile. She is tachycardic, hypotensive and at times hypoxic although I think that is more of poor waveform then true hypoxemia. She is on nasal cannula oxygen. Const: Elderly female in NAD but pasty in appearance, mildly confused. HEENT: NC/AT. Normal facial exam. Eyes: Right eye patch in place; pupil dilated and cornea with some opacification. Left eye with normal reactivity. Neck: Supple. Trachea midline. No c-spine tenderness. Lungs: Tachypnea. Lungs are clear and equal bilaterally. Chest tender on left side. Cor: RRR without murmur/gallop. Tachycardic. Good radial pulses. GI: Soft. NT/ND. No guarding or rebound. Back: No spine tenderness. Posterior left rib tenderness. Neuro: A+O x 2. CN grossly in tact. Generally weak but HUFFMAN x4. Ext: No C/C/E. No deformity or tenderness. No pain with ROM of hips. Skin: Warm and dry without lacerations. Ecchymosis present left lateral ribs extending around posteriorly. Course <Wes Dc MD - Last Filed: 03/11/19 07:43> Vital Signs Temperature 97.5 F L 03/11/19 06:34 Pulse 116 H 03/11/19 06:34 Respiratory Rate 40 H 03/11/19 06:34 Pulse Oximetry 98 03/11/19 06:34 Temperature 97.5 F L 03/11/19 06:34 Temperature Source Temporal Artery Scan 03/11/19 06:34 Pulse 116 H 03/11/19 06:34 Respiratory Rate 40 H 03/11/19 06:34 Respiratory Effort 03/11/19 06:34 Pulse Oximetry 98 03/11/19 06:34 Oxygen Delivery Method Room Air 03/11/19 06:34 Oxygen Flow Rate 0 03/11/19 06:34 Pain Level 8 03/11/19 06:34 Sign Out <Wes Dc MD - Last Filed: 03/11/19 07:43> Sign Out Data: Sign Out Comment: Patient is currently in CT scan. Laboratory studies reveal acute kidney injury as well as elevated LFTs. Patient will require admission. Case turned over to Dr. Chavira who will follow up on scan results and get the patient admitted. Last updated by Wes Dc MD at 03/11/19 07:57
[2019-03-11] MEDS: Lactated Ringers 1,000 ML 1000 ML IV (06:57)
[2019-03-11] MEDS: Normal Saline Flush 10 ML SYR IVP (06:58)
[2019-03-11 07:04] LABS: Abs Immature Grans 0.09 k/cumm (0.0-0.09); Absolute Basophil Count 0.02 k/cumm (0.0-0.2); Absolute Eosinophil Count 0.01 k/cumm (0.0-0.7); Absolute Neutrophil Count 8.98 k/cumm (1.2-6.7); Basophils % 0.2; Eosinophils % 0.1; HCT 29.4 % (36.0-46.0); HGB 8.6 g/dL (12.0-15.5); Immature Grans % 0.8; Lymphocytes % 10.4; Mean Corp. HGB Concentration 29.3 g/dL (32.0-36.0); Mean Corpuscular Hemoglobin 28.2 pg (27.0-33.0); Mean Corpuscular Volume 96.4 fL (80-95); Mean Platelet Volume 10.3 fL (8.0-11.0); Monocytes % 3.8; Neutrophils % 84.7; Platelet Count 266 x1000/uL (130-400); RBC 3.05 m/cumm (4.00-5.20); RBC Distribution Width 18.7 % (11.7-14.6)
[2019-03-11 07:17] LABS: INR 1.1 (0.9-1.1); PTT Activated 21.8 sec (21.0-31.4); Prothrombin Time 11.3 sec (9.3-11.0)
[2019-03-11 07:21] LABS: Albumin 3.2 g/dL (3.4-5.0); Anion Gap 33.4 mmol/L (3-11); BUN 20 mg/dL (7-18); Bilirubin, Total 1.7 mg/dL (0.2-1.0); CO2 10.6 mmol/L (21.0-32.0); Calcium 9.5 mg/dL (8.5-10.1); Chloride 97 mmol/L (98-107); Creatine Kinase 76 U/L (26-192); Estimated GFR 11.68 (mL/min/1.73m2); Glucose 309 mg/dL (70-100); Magnesium 2.1 mg/dL (1.8-2.4); Potassium 3.8 mmol/L (3.5-5.1); Sodium 141 mmol/L (136-145); Total Protein 6.3 g/dL (6.4-8.2)
[2019-03-11 07:24] LABS: Bilirubin Small (Negative); Blood Trace-intact (Negative); Clarity Cloudy (Clear); Glucose Negative (Negative); Ketones Trace mg/dL (Negative); Leukocyte Esterase Moderate (Negative); Nitrite Negative (Negative); Specific Gravity 1.015 (1.005-1.025); Urobilinogen 0.2 EU/dL (Up TO 0.2); pH 5.5 (5-8)
[2019-03-11 07:35] LABS: Alkaline Phosphatase 136 U/L (46-116); ETHANOL BLOOD < 3.0 mg/dL (<3); Troponin I < 0.05 ng/mL (0.00-0.06)
[2019-03-11 07:36] LABS: ALT 285 U/L (12-78); AST 678 U/L (15-37)
[2019-03-11 07:40] LABS: Bacteria Moderate HPF (Negative); C & S Indicated? No/Sq. Contamination; Casts 3-5 Fine Granular LPF (Negative); Crystals Moderate Amorphous HPF (Negative); Epithelial Cells Many HPF (Negative); Mucus Moderate (Negative); RBC 0-2 (0-2)
[2019-03-11 07:58] LABS: Lipase 203 U/L (73-393)
[2019-03-11 08:17] LABS: HCO3 (Venous) 11 mmol/L (22-28); O2 Sat (Venous) 48 % (70-80); TCO2 (Venous) 11 mmol/L (22-29); pCO2 (Venous) 36 mm/Hg (34-47); pH (Venous) 7.09 (7.32-7.43); pO2 (Venous) 39 mm/Hg (28-44)
--- NOTE | 2019-03-11 08:22 | DI.VRAD_ITS ---
EXAM: CT Head Without Contrast EXAM DATE/TIME: 03/11/2019 6:55 AM CLINICAL HISTORY: 73 years old, female; Other: Trauma; Ground level fall TECHNIQUE: Imaging protocol: Axial computed tomography images of the head without contrast. Coronal and sagittal reformatted images were created and reviewed. Radiation optimization: All CT scans at this facility use at least one of these dose optimization techniques: automated exposure control; mA and/or kV adjustment per patient size (includes targeted exams where dose is matched to clinical indication); or iterative reconstruction. COMPARISON: CT HEAD CERVICAL SPINE WO 01/17/2019 6:35 AM FINDINGS: Brain: Age-related involutional changes and chronic microvascular ischemic disease. No evidence for acute transcortical infarct. No mass effect or midline shift. No extra-axial collection. No acute intracranial hemorrhage. Basal cisterns are patent. Ventricles: Normal. No ventriculomegaly. Bones/joints: Unremarkable. No acute fracture. Sinuses: Visualized sinuses are unremarkable. No fluid levels. Mastoid air cells: Visualized mastoid air cells are well aerated. No mastoid effusion. Orbits: Right cataract surgery. Soft tissues: Unremarkable. IMPRESSION: No evidence for acute transcortical infarct, acute intracranial hemorrhage, or mass effect. EXAM: CT Cervical Spine Without Contrast EXAM DATE/TIME: 03/11/2019 6:55 AM CLINICAL HISTORY: 73 years old, female; Other: Trauma; Ground level fall TECHNIQUE: Imaging protocol: Axial computed tomography images of the cervical spine without contrast. Coronal and sagittal reformatted images were created and reviewed. Radiation optimization: All CT scans at this facility use at least one of these dose optimization techniques: automated exposure control; mA and/or kV adjustment per patient size (includes targeted exams where dose is matched to clinical indication); or iterative reconstruction. COMPARISON: CT HEAD CERVICAL SPINE WO 01/17/2019 6:35 AM FINDINGS: Vertebrae: No acute fracture or traumatic subluxation. No spondylolisthesis. The atlantooccipital and atlantoaxial articulations are intact. Facet joint alignments are maintained. Discs/Spinal canal/Neural foramina: Age-related degenerative disc disease. Multilevel degenerative changes of the cervical spine. Other bones/joints: Occipital condyles are intact. Prevertebral Space: No prevertebral soft tissue swelling. Soft tissues: Unremarkable. Lungs: Lung apices are normal. Pleural space: Large left pleural effusion. IMPRESSION: No acute fracture or traumatic subluxation. Dictated and Authenticated by: Pelon Marx MD. Ordering:EVE Harvey MD
--- NOTE | 2019-03-11 08:25 | DI.VRAD_ITS ---
EXAM: CT Chest Without Contrast EXAM DATE/TIME: 03/11/2019 8:04 AM CLINICAL HISTORY: 73 years old, female; Other: Trauma; Ground level fall; Additional info: Trauma; Ground level fall PT stated lt shoulder painful also TECHNIQUE: Imaging protocol: Axial computed tomography images of the chest without intravenous contrast. Coronal and sagittal reformatted images were created and reviewed. Radiation optimization: All CT scans at this facility use at least one of these dose optimization techniques: automated exposure control; mA and/or kV adjustment per patient size (includes targeted exams where dose is matched to clinical indication); or iterative reconstruction. COMPARISON: CT CHEST/ABD/PEL WO 01/04/2019 11:13 PM FINDINGS: Lungs: Consolidation in the left lower lobe may represent contusion, atelectasis, or pneumonia. Pleural space: Large left hemothorax. Heart: Unremarkable. No cardiomegaly. No pericardial effusion. Aorta: Unremarkable. No aortic aneurysm. Lymph nodes: Unremarkable. No enlarged lymph nodes. Bones/joints: Acute Displaced posterior and lateral left rib fractures:, 6, 7, 8, 9. Healed bilateral rib fractures Soft tissues: Unremarkable. 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 acute Displaced posterior and lateral left rib fractures:, 6, 7, 8, 9. 2. Large left hemothorax. 3. Consolidation in the left lower lobe may represent contusion, atelectasis, or pneumonia. EXAM: CT Abdomen and Pelvis Without Contrast EXAM DATE/TIME: 03/11/2019 8:04 AM CLINICAL HISTORY: 73 years old, female; Other: Trauma; Ground level fall; Additional info: Trauma; Ground level fall PT stated lt shoulder painful also TECHNIQUE: Imaging protocol: Axial computed tomography images of the abdomen and pelvis without contrast. Coronal and sagittal reformatted images were created and reviewed. Radiation optimization: All CT scans at this facility use at least one of these dose optimization techniques: automated exposure control; mA and/or kV adjustment per patient size (includes targeted exams where dose is matched to clinical indication); or iterative reconstruction. COMPARISON: CT CHEST/ABD/PEL WO 01/04/2019 11:13 PM FINDINGS: Liver: Normal. No mass. Gallbladder and bile ducts: Normal. No calcified stones. No ductal dilation. Pancreas: Normal. No ductal dilation. Spleen: Normal. No splenomegaly. Adrenals: Normal. No mass. Kidneys and ureters: Normal. No hydronephrosis. Stomach and bowel: Normal. No obstruction. No mucosal thickening. Appendix: No evidence of appendicitis. Intraperitoneal space: Normal. No free air. No significant fluid collection. Vasculature: Normal. No abdominal aortic aneurysm. Lymph nodes: Normal. No enlarged lymph nodes. Bladder: Unremarkable as visualized. Reproductive: Unremarkable as visualized. Bones/joints: Chronic compression fracture of the inferior endplate of T12. Broad-based disc bulge, facet hypertrophy, and ligament hypertrophy at L4/L5 consistent with spinal stenosis. Soft tissues: Unremarkable. Other findings: Motion artifact degrades images IMPRESSION: Broad-based disc bulge, facet hypertrophy, and ligament hypertrophy at L4/L5 consistent with spinal stenosis. Recommend MRI for further evaluation. Dictated and Authenticated by: Fauzia Barfield MD. Ordering:EVE Harvey MD
[2019-03-11] MEDS: Normal Saline 1,000 ML 1000 ML IV (08:48)
[2019-03-11 09:02] LABS: Salicylate < 2.8 mg/dL (2.8-20.0)
[2019-03-11 09:08] LABS: Acetaminophen < 2 ug/mL (10-30)
[2019-03-11] MEDS: levoFLOXacin 750 MG/150 ML BAG 100 MG IVPB (09:17)
[2019-03-11] MEDS: MORPHine 10 MG/ML VIAL 4 MG IVP (09:32)
--- NOTE | 2019-03-11 09:53 | NUR.NOTE ---
Nursing Note: Spoke with Robyn Samuel patient's sister. She will take care of patient's dog and will contact her son about the patient. Wendy Roth.
[2019-03-11] MEDS: Lactated Ringers 1,000 ML 150 ML IV (10:08)
== END 2019-03-11 10:17 | disposition short-term general hospital (02) ==
PROVIDERS: Emergency Medicine; Emergency Provider Student in an Organized Health Care Education/Training Program; PCP Family Medicine
DX: S22.42XA Multiple fractures of ribs, left side, initial encounter for closed fracture (principal); S27.1XXA Traumatic hemothorax, initial encounter; E86.0 Dehydration; N17.9 Acute kidney failure, unspecified; E87.2 Acidosis; R74.0 Nonspecific elevation of levels of transaminase and lactic acid dehydrogenase [LDH]; F10.20 Alcohol dependence, uncomplicated; I10 Essential (primary) hypertension; M51.86 Other intervertebral disc disorders, lumbar region
CPT/HCPCS: 36415; 36416; 51702; 71250; 80053; 82550; 82805; 82962; 83690; 86850; 86900; 86901; 93005; 96360; 96361; 96365; 96375; 99285; 70450; 72125; 74176; 80320; 80329; 81003; 81015; 83735; 84484; 85025; 85610; 85730; 93010; J1956; J2270

== ENCOUNTER 2019-04-02 08:03 | Outpatient (CLI) | payer OTHER, SELFPAY ==
--- NOTE | 2019-04-02 08:48 | DI.RAD_ITS ---
SYMPTOMS/DIAGNOSIS: DECREASED BREATH SOUNDS, RALES BASES BOTH LUNGS, F/U HEMOTHORAX PA AND LATERAL CHEST: Comparison is made with [id number]. Comparison is also made with chest CT dated [id number]. Bilateral rib fractures are seen. There is a small residual left pleural effusion, decreasing when compared with the prior CT. There is no pneumothorax. The right lung appears clear. The aorta is tortuous. IMPRESSION: size of left pleural effusion. No evidence of pneumothorax.
== END 2019-04-02 08:23 ==
PROVIDERS: PCP Family Medicine; Visit Provider Nurse Practitioner Adult Health
DX: J90 Pleural effusion, not elsewhere classified (principal); R09.89 Other specified symptoms and signs involving the circulatory and respiratory systems; S22.43XD Multiple fractures of ribs, bilateral, subsequent encounter for fracture with routine healing
CPT/HCPCS: 71046

== ENCOUNTER 2019-04-06 14:19 | Outpatient (REF) | payer OTHER, SELFPAY ==
[2019-04-06 15:15] LABS: Anion Gap 14.7 mmol/L (3-11); BUN 12 mg/dL (7-18); CO2 22.3 mmol/L (21.0-32.0); CREATININE 0.84 mg/dL (0.55-1.02); Calcium 10.1 mg/dL (8.5-10.1); Chloride 101 mmol/L (98-107); Glucose 102 mg/dL (70-100); Potassium 3.4 mmol/L (3.5-5.1); Sodium 138 mmol/L (136-145)
[2019-04-06 15:38] LABS: Abs Immature Grans 0.02 k/cumm (0.0-0.09); Absolute Basophil Count 0.01 k/cumm (0.0-0.2); Absolute Eosinophil Count 0.23 k/cumm (0.0-0.7); Absolute Lymphocyte Count 1.17 k/cumm (1.2-3.4); Absolute Monocyte Count 0.66 k/cumm (0.11-0.7); Absolute Neutrophil Count 5.53 k/cumm (1.2-6.7); Basophils % 0.1; HCT 33.5 % (36.0-46.0); HGB 10.7 g/dL (12.0-15.5); Immature Grans % 0.3; Lymphocytes % 15.4; Mean Corp. HGB Concentration 31.9 g/dL (32.0-36.0); Mean Corpuscular Hemoglobin 30.7 pg (27.0-33.0); Mean Platelet Volume 9.7 fL (8.0-11.0); Monocytes % 8.7; Neutrophils % 72.5; Platelet Count 391 x1000/uL (130-400); RBC 3.49 m/cumm (4.00-5.20); RBC Distribution Width 19.2 % (11.7-14.6); White Blood Cell Count 7.62 k/cumm (4.4-10.8)
== END 2019-04-06 14:39 ==
LOC: LBN 14:19
PROVIDERS: PCP Family Medicine; Visit Provider Nurse Practitioner Adult Health
DX: D64.9 Anemia, unspecified (principal)
CPT/HCPCS: 80048; 80053; 85025

== ENCOUNTER 2019-04-11 10:13 | Inpatient (IN) | payer OTHER, SELFPAY ==
[2019-04-11] VITALS (65 sets, daily range): BP systolic 131–236; BP diastolic 68–131; PULSE 106–144; RESP 17–35; TEMP 36.1–38; O2SAT 90–100
--- NOTE | 2019-04-11 10:27 | ED.GENADUL_ITS ---
Discharge Plan Discharge Details Chief Complaint: SOB Admit Date/Time: 04/11/19 14:41 Admit Provider: Susie Moore Attending Provider: Susie Moore Primary Care Provider: Lavelle Galindo ED Provider: Tash Servin Discharge Data Discharge Date/Time-TO BE ENTERED AT DEPARTURE: 04/11/19 16:21 Medical Decision Making Patient presents today, brought in via EMS, with chief complaint of shortness of breath, nausea, vomiting. Reports she was discharged from [facility] and woke with symptoms this morning. Patient is moaning and appears very anxious. She is a poor historian, patient's mentation seems to be at baseline compared to previous visits. I do not appreciate any alcohol on today's exam. Patient is a known alcoholic. States she has not been drinking since the time of discharge. EMS reports the patient was noted to be hypertensive. Patient reports she has not taken any of her medications since the time of discharge. Patient is notably tachycardic, hypertensive, anxious and disheveled. Patient is a very poor historian making differential diagnostic list difficult. She has been having shortness of breath, with recent trauma, I am concerned for possible PE, ACS. Also concern for possible infectious source. She is tender on her abdominal exam. Plan to give Ativan to help with her anxiety. Patient reports she has not had any alcohol since her injury 1 month ago. EKg reviewed by Dr. Mccarthy, significant for sinus tach with rate of 128. No acute ischemic changes noted. After IV ativan, patient is sleeping, resting comfortably. Her breathing is nonlabored, her O2 remains 95%RA. She is still tachycardic at 130. Labs reviewed, mild leukocytosis with WBC of 11.32. Anemic with Hgb 11.8, this is typical for the patient. Platelet count elevated at 456, this is typical for hte patient. D-dimer elevated at 4716. Anion gap 17.8, patient is typically elevated. Alk phos elevated at 196, while this has been elevated historically, it is higher than her typical. ETOH 3.3. Patient having abdominal pain with palpation, she was not endorsing pain initially. Will obtain CT for PE, abdominal CT. Discussed case with Dr. Mccarthy. He advised bolous, will give 500cc bolus, hestitant to do more than this as the patient sanchez been hypertensive. He notes that the patient is typically tachycardic. Patient has not taken any of her medications today also considered possible gabapentin withdrawal. CT reviewed by radiologist, advised there is no evidence of a pulmonary embolism or acute intra-abdominal pathology. Consulted with hospitalist who agrees to admission For patient's persistent tachycardia, hypertension. Patient is cooperative and calm at this time. All of her questions and concerns were addressed, she is in agreement with this plan. . HPI General Mode of arrival: EMS . Date/Time Provider Initiated Documentation: 04/11/19 10:16 . Limitations to Documentation: no limitations . Information obtained by: patient, EMS and RN notes reviewed . HPI Narrative: Patient is a 73 year old female, brought in via EMS, with c/c of SOB. States that she was discharged from [facility] yesterday where she was recovering from trauma that included a multitude of rib fractures. Patient was admitted at [facility] prior to [facility]. States that she awoke with SOB this AM. On 03/11 patient fell, unknown source of fall but patient did admit to ETOH intake, and suffered left hemothorax, left rib fx, left posterior flank hematoma, radial fracture. Patient had a chest tube placed, 3 units PRBCs. Medical history pertinent for Etoh abuse, COPD, GERD, cirrhosis, depression, chronic renal disease, multiple falls. Patient had no evidence of ETOH withdrawal while at [facility]. Patient reports that she was feeling well while at [facility] yesterday, denies any ETOH lsast night or today. Reports that she is nauseated. Denies pain, No fevers/chills. No SOB, CP. Denies abdominal pain. Related Data Home Medications Medication Instructions Recorded Confirmed fluticasone propionate 1 spr NS daily prn #3 bottle 09/03/16 04/11/19 polyethylene glycol 3350 17 gm PO DAILY PRN PRN packet 04/17/18 04/11/19 folic acid 1 mg PO DAILY #14 tab 08/11/18 04/11/19 gabapentin 300 mg capsule 300 mg PO TID #90 cap 11/22/18 04/11/19 hydrochlorothiazide 12.5 mg tablet 12.5 mg PO DAILY #90 tab 11/22/18 04/11/19 magnesium oxide 400 mg (241.3 mg 400 mg PO BID #180 tab 11/22/18 04/11/19 magnesium) tablet acetaminophen 500 mg tablet 1,000 mg PO Q8H PRN PRN tab 04/10/19 04/11/19 ferrous sulfate 325 mg (65 mg 325 mg PO DAILY 04/10/19 04/11/19 iron) tablet,delayed release lidocaine 5 % topical patch 1 patch TP DAILY 04/10/19 04/11/19 methocarbamol 500 mg tablet 500 mg PO Q6H PRN tab 04/10/19 04/11/19 bisacodyl 10 mg NH PRN PRN 04/11/19 04/11/19 Previous Rx's Medication Instructions Recorded polyethylene glycol 3350 17 gm PO DAILY PRN PRN packet 04/17/18 folic acid 1 mg PO DAILY #14 tab 08/11/18 gabapentin 300 mg capsule 300 mg PO TID #90 cap 11/22/18 hydrochlorothiazide 12.5 mg tablet 12.5 mg PO DAILY #90 tab 11/22/18 magnesium oxide 400 mg (241.3 mg 400 mg PO BID #180 tab 11/22/18 magnesium) tablet Allergies Allergy/AdvReac Type Severity Reaction Status Date / Time Penicillins Allergy Mild Rash Unverified 04/11/19 10:32 ramipril Allergy Unknown ITCHING Unverified 04/11/19 10:32 meperidine [From Demerol] AdvReac Severe Nausea Unverified 04/11/19 10:32 bupropion AdvReac Mild GI upset Unverified 04/11/19 10:32 AMBER Inhibitors AdvReac Unknown COUGH Unverified 04/11/19 10:32 alendronate sodium AdvReac Unknown GI Distress Unverified 04/11/19 10:32 clarithromycin AdvReac Unknown intolerant Unverified 04/11/19 10:32 paroxetine AdvReac Unknown Diarrhea Unverified 04/11/19 10:32 General JORDAN: 3 Review of Systems Review of Systems ROS difficult to obtain from patient. She is a poor historian and very anxious at this time. Patient would answer some questions, these are below. Constitutional Denies chills, Denies fever(s), Denies headache(s) and Reports poor appetite ENT Denies headache(s) and Denies neck pain Cardiovascular Denies chest pain Respiratory Denies cough, Reports pain on inspiration and Reports pain with cough (associates with rib fractures) Gastrointestinal Reports as per HPI (patient does not know when last BM was ), Denies abdominal pain, Reports nausea and Reports vomiting (bringing up small amounts of bile per EMS report) Genitourinary Reports system reviewed and no additional complaints, except as docu (patient does not know about her urinary symptoms) Musculoskeletal Denies neck pain, Denies numbness and Reports other (pain in the left ribs) Neurologic Denies headache(s) and Denies numbness [facility] Medical History (Updated 04/12/19 @ 12:07 by Laly Dumont MD) Alcohol abuse (Chronic) Alcoholic ketosis (Resolved) Allergic rhinitis (Chronic) Anemia (Chronic 12/20/16) Back pain, chronic (Chronic) Cataract (Chronic 11/07/15) Cervical radicular pain (Chronic) Chronic alcoholic gastritis (Chronic 10/12/17) Depression (Chronic) Elev transaminase/LDH (Chronic) Falling (Chronic) Genital herpes simplex (Chronic) GERD (gastroesophageal reflux disease) (Chronic) GI bleed (Chronic 12/20/16) Headache (Chronic) Hyperlipidemia (Chronic) Hypertension (Chronic) Macrocytosis (Chronic 09/26/14) Multiple rib fractures (Acute) Non-cardiac chest pain (Chronic 09/21/16) Osteoarthritis (Chronic) Osteopenia (Chronic) 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) Pleural effusion on left (Acute) Right rib fracture (Resolved) Sciatica (Chronic) Tubular adenoma of colon (Chronic 01/28/17) Urinary incontinence (Chronic) Wernicke encephalopathy (Chronic) Surgical History Bladder Surgery Colonoscopy - MAC (01/28/17) EGD - MAC (12/20/16) Ligation of fallopian tube Repair bladder injury, simple Social History Smoking/Tobacco Use Status: Former Tobacco Use Alcohol Intake: former Drug use: Never Details: Do you feel safe at home: Yes Additional Social history: my caregiver is an anxiety attack person Exam Const General: no acute distress, anxious, not diaphoretic, disheveled and ill appearing chronically Nutritional Appearance: average body habitus and well nourished Orientation: alert, awake and oriented x3 HENMT Head: normal to inspection Mouth: mucous membranes dry (Appears dry) Chest Chest: normal inspection of the chest Resp Effort & Inspection: normal respiratory effort, able to speak in complete sentences and no respiratory distress Auscultation: clear to auscultation bilaterally, no rales, no rhonchi and no wheezes Cardio Rate: regular rate Rhythm: regular rhythm Heart Sounds: S1 normal and S2 normal GI Inspection: normal to inspection, no edema, non-distended, incision (Incision on the inferior aspect, well-healed) and no visible herniation Palpation: soft, no hepatosplenomegaly, not firm, no guarding and tender (Diffusely tender) Auscultation: normal bowel sounds Back/Spine/Pelvis Back: no CVA tenderness Skin General skin exam: no rashes or lesions noted Trauma: no lacerations or abrasions Neuro General: alert and awake Cognition: normal cognition Speech: speech normal Gait: normal gait Extrem General: normal to inspection, normal capillary refill, no pedal edema and no calf tenderness Psych Appearance: grossly normal and disheveled Mental Status: mental status grossly normal Speech and Movement: restless Mood: anxious mood
[2019-04-11 11:03] LABS: Abs Immature Grans 0.02 k/cumm (0.0-0.09); Absolute Basophil Count 0.01 k/cumm (0.0-0.2); Absolute Lymphocyte Count 0.43 k/cumm (1.2-3.4); Absolute Monocyte Count 0.31 k/cumm (0.11-0.7); Absolute Neutrophil Count 10.55 k/cumm (1.2-6.7); Basophils % 0.1; HCT 35.7 % (36.0-46.0); HGB 11.8 g/dL (12.0-15.5); Immature Grans % 0.2; Lymphocytes % 3.8; Mean Corp. HGB Concentration 33.1 g/dL (32.0-36.0); Mean Corpuscular Hemoglobin 31.5 pg (27.0-33.0); Mean Corpuscular Volume 95.2 fL (80-95); Mean Platelet Volume 9.2 fL (8.0-11.0); Monocytes % 2.7; Neutrophils % 93.2; Platelet Count 456 x1000/uL (130-400); RBC 3.75 m/cumm (4.00-5.20); RBC Distribution Width 19.5 % (11.7-14.6); White Blood Cell Count 11.32 k/cumm (4.4-10.8)
[2019-04-11 11:20] LABS: Anisocytosis 2+; Diff Comment RBC Morph Reviewed; Macrocytosis 2+; Polychromasia Present
[2019-04-11 11:21] LABS: Poikilocytes 2+
[2019-04-11 11:23] LABS: PTT Activated 21.8 sec (21.0-31.4); Prothrombin Time 9.8 sec (9.3-11.0)
[2019-04-11] MEDS: LORazepam 2 MG/ML VIAL 1 MG IVP ×2 (11:27→14:21)
[2019-04-11] MEDS: Ondansetron 4 MG/2 ML VIAL IVP (11:27)
[2019-04-11 11:36] LABS: ETHANOL BLOOD 3.3 mg/dL (<3)
[2019-04-11 11:38] LABS: ALT 35 U/L (12-78); AST 42 U/L (15-37); Albumin 3.5 g/dL (3.4-5.0); Alkaline Phosphatase 196 U/L (46-116); Anion Gap 17.8 mmol/L (3-11); BUN 12 mg/dL (7-18); Bilirubin, Total 0.9 mg/dL (0.2-1.0); CO2 22.2 mmol/L (21.0-32.0); CREATININE 0.86 mg/dL (0.55-1.02); Calcium 10.2 mg/dL (8.5-10.1); Chloride 101 mmol/L (98-107); Glucose 188 mg/dL (70-100); Magnesium 1.6 mg/dL (1.8-2.4); NT-proBNP 304 pg/mL; Potassium 3.8 mmol/L (3.5-5.1); Sodium 141 mmol/L (136-145)
[2019-04-11 11:39] LABS: Troponin I < 0.05 ng/mL (0.00-0.06)
[2019-04-11 11:47] LABS: Lipase 104 U/L (73-393)
--- NOTE | 2019-04-11 12:00 | DI.RAD_ITS ---
SYMPTOMS/DIAGNOSIS: SHORTNESS OF BREATH AP AND LATERAL CHEST: Comparison is made with March,. There has been continued interval decrease in size of the previously noted left pleural effusion and left basilar densities. Increased callus formation is seen along the left lateral rib fractures. No pneumothorax is seen. IMPRESSION: Continued decrease in size of left pleural effusion. No new abnormality.
[2019-04-11 12:12] LABS: D-Dimer 4716 ng/mlFEU (<500)
[2019-04-11 12:18] LABS: Ammonia 14 umol/L (11-32)
[2019-04-11] MEDS: Normal Saline 500 ML IV ×2 (12:30→15:00)
--- NOTE | 2019-04-11 12:40 | DI.CT_ITS ---
SYMPTOMS/DIAGNOSIS: TACHYCARDIA, SHORTNESS OF BREATH, ABDOMINAL PAIN CT OF THE CHEST, ABDOMEN AND PELVIS: CT angiography was performed with multi slice acquisition and multi planar and 3D reconstruction. Comparison is made with February,. Images were performed from the clavicles through the ischial tuberosities after IV contrast. There has been interval decrease in size of the left pleural effusion. There is mild adjacent compressive atelectasis. There are multiple left rib fractures, which show some increased callus formation when compared with the previous exam. The right lung shows dependent changes. There is a stable nodule in the right upper lobe when compared with a 2017 exam. There is no evidence of pneumothorax. The pulmonary arteries and aorta are well opacified with IV contrast and there is no evidence of aortic dissection or pulmonary emboli. There is again noted to be dilatation of the ascending aorta to 3.9 cm. The liver shows slight fatty infiltration. The gallbladder is unremarkable. The spleen is normal in size. There is a tiny hiatal hernia. Cysts are noted on both kidneys, right greater than left. There is no hydronephrosis. There is mild motion on the images through the upper abdomen, particularly through the level of the pancreas. No gross pancreatic abnormality is seen. The bladder, uterus and ovaries are unremarkable. There is no bowel dilatation or inflammatory change. The colon is mainly free of stool. The appendix appears normal. There is no small bowel dilatation or inflammatory change. The aorta shows mild calcification and is normal in diameter. No free air or free fluid is seen. Degenerative changes and scoliosis are again noted in the spine. There is a stable mild compression of the inferior endplate of T12. IMPRESSION: Interval decrease in size of right pleural effusion and basilar atelectasis. No acute abnormality is seen in the chest, abdomen or pelvis.
[2019-04-11] MEDS: Omnipaque 350 MG/ML 100 ML BTL IJ (12:44)
[2019-04-11 14:52] LABS: Lactate 2.9 mmol/L (0.6-1.4)
--- NOTE | 2019-04-11 15:16 | W.PM.HP.N ---
Date of service: 04/11/19 Time of Service: 15:16 Assessment and Plan (1) Dyspnea: Current visit: Yes Status: Acute subjective, no hypoxia , no PE, no evidence ACS, may be due to resolving effusion and recent rib fractures (2) Tachycardia: Current visit: Yes Status: Acute sinus tachycardia, dehration unlikely as she is hypertensive, may be due to alcohol withdrawal (3) Hypertension: Current visit: Yes Status: Chronic she is on antihypertensives, unclear whether she is compliant, may be due to alcohol withdrawal. will continue home meds and treats for possible withdrawal (4) Alcohol abuse: Current visit: Yes Status: Chronic her ethanol level was just above 3 on arrival, if she did consume alcohol 2 days ago following discharge, she would be in the window for withdrawal. this could certainly explain her tachycardia and hypertension. we will monitor on CIWA and treat with PRN ativan. would resume naltrexone on discharge (5) Lactic acidosis: Current visit: Yes Status: Acute mild elevation, no obvious source infection, she may have impaired lactate clearance in setting underlying liver disease in an alcoholic, we will repeat a level after she has received IVF (6) Hypomagnesemia: Current visit: Yes Status: Acute replete prn History of Present Illness Chief Complaint: chest pain Narrative: 73 y/o F with H alcohol abuse and multiple admissions for alcohol withdrawal, HTN, chronic pain, depression and recent admission to [facility] from 03/11-03/21 with rib fractures and hemothorax following mechanical fall requiring chest tube presents with shortness of breath and nausea. She was discharged from rehab 2 days ago. She denies any alcohol or drug use in the past 2 days. Upon arrival to [facility] ED she was hypertensive and tachycardic. EKG showed sinus rhythm without acute ischemic changes. CT chest/abdomen pelvis showed no evidence PE, no acute pathology, and improving pleural effusion. Labs notable for elevated anion gap with lactate of 2.9. Ethyl alcohol level was 3.3, Troponin negative. She receiving 1mg IV ativan x2 in the ED as well as IVF. [facility] Medical History (Updated 04/11/19 @ 15:52 by Susie Moore MD) Alcohol abuse (Chronic) Alcoholic ketosis (Resolved) Allergic rhinitis (Chronic) Anemia (Chronic 12/20/16) Back pain, chronic (Chronic) Cataract (Chronic 11/07/15) Cervical radicular pain (Chronic) Chronic alcoholic gastritis (Chronic 10/12/17) Depression (Chronic) Elev transaminase/LDH (Chronic) Falling (Chronic) Genital herpes simplex (Chronic) GERD (gastroesophageal reflux disease) (Chronic) GI bleed (Chronic 12/20/16) Headache (Chronic) Hyperlipidemia (Chronic) Hypertension (Chronic) Macrocytosis (Chronic 09/26/14) Multiple rib fractures (Acute) Non-cardiac chest pain (Chronic 09/21/16) Osteoarthritis (Chronic) Osteopenia (Chronic) 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) Pleural effusion on left (Acute) Right rib fracture (Resolved) Sciatica (Chronic) Tubular adenoma of colon (Chronic 01/28/17) Urinary incontinence (Chronic) Wernicke encephalopathy (Chronic) Surgical History Bladder Surgery Colonoscopy - MAC (01/28/17) EGD - MAC (12/20/16) Ligation of fallopian tube Repair bladder injury, simple Social History Smoking/Tobacco Use Status: Former Tobacco Use Alcohol Intake: former Drug use: Never Details: Do you feel safe at home: Yes Additional Social history: my caregiver is an anxiety attack person Meds Home Medications Medication Instructions Recorded Confirmed Type fluticasone propionate 1 spr NS daily prn #3 bottle 09/03/16 04/11/19 History polyethylene glycol 3350 17 gm PO DAILY PRN PRN packet 04/17/18 04/11/19 Rx folic acid 1 mg PO DAILY #14 tab 08/11/18 04/11/19 Rx gabapentin 300 mg capsule 300 mg PO TID #90 cap 11/22/18 04/11/19 Rx hydrochlorothiazide 12.5 mg tablet 12.5 mg PO DAILY #90 tab 11/22/18 04/11/19 Rx magnesium oxide 400 mg (241.3 mg 400 mg PO BID #180 tab 11/22/18 04/11/19 Rx magnesium) tablet acetaminophen 500 mg tablet 1,000 mg PO Q8H PRN PRN tab 04/10/19 04/11/19 History ferrous sulfate 325 mg (65 mg 325 mg PO DAILY 04/10/19 04/11/19 History iron) tablet,delayed release lidocaine 5 % topical patch 1 patch TP DAILY 04/10/19 04/11/19 History methocarbamol 500 mg tablet 500 mg PO Q6H PRN tab 04/10/19 04/11/19 History bisacodyl 10 mg NM PRN PRN 04/11/19 04/11/19 History Allergies Allergy/AdvReac Type Severity Reaction Status Date / Time Penicillins Allergy Mild Rash Unverified 04/11/19 10:32 ramipril Allergy Unknown ITCHING Unverified 04/11/19 10:32 meperidine [From Demerol] AdvReac Severe Nausea Unverified 04/11/19 10:32 bupropion AdvReac Mild GI upset Unverified 04/11/19 10:32 AMBER Inhibitors AdvReac Unknown COUGH Unverified 04/11/19 10:32 alendronate sodium AdvReac Unknown GI Distress Unverified 04/11/19 10:32 clarithromycin AdvReac Unknown intolerant Unverified 04/11/19 10:32 paroxetine AdvReac Unknown Diarrhea Unverified 04/11/19 10:32 Exam Narrative Exam Narrative: GEN: appears older than stated, mild distress HEENT: NCAT, MMM, CNII-XII intact CV: tachycardic. regular LUNGS: CTAB ABD: obese, mildly distended, soft, ND EXT: symmetrical, no edema NEURO: waxing and waning attention, oriented to person and place, moving all extremities spontaneouls, no asterixis Results Labs : 04/11/19 10:55 04/11/19 10:55 Laboratory Results - last 24 hr 04/11/19 04/11/19 04/11/19 10:55 10:55 10:55 WBC 11.32 H RBC 3.75 L Hgb 11.8 L Hct 35.7 L MCV 95.2 H MCH 31.5 MCHC 33.1 RDW 19.5 H Plt Count 456 H MPV 9.2 Immature Gran % 0.2 Neutrophils % 93.2 Lymphocytes % 3.8 Monocytes % 2.7 Eosinophils % 0.0 Basophils % 0.1 Absolute Neutrophils 10.55 H Absolute Lymphocytes 0.43 L Absolute Monocytes 0.31 Absolute Eosinophils 0.00 Absolute Basophils 0.01 Differential Comment Rbc morph reviewed RBC Morphology See below Polychromasia Present Poikilocytosis 2+ Anisocytosis 2+ Macrocytosis 2+ PT 9.8 INR 1.0 APTT 21.8 D-Dimer Sodium 141 Potassium 3.8 Chloride 101 Carbon Dioxide 22.2 Anion Gap 17.8 H BUN 12 Creatinine 0.86 Estimated GFR/1.73 m2 >= 60.00 Glucose 188 H Lactate Calcium 10.2 H Magnesium 1.6 L Total Bilirubin 0.9 AST 42 H ALT 35 Alkaline Phosphatase 196 H Ammonia Troponin I < 0.05 NT-Pro-B Natriuret Pep 304 H Total Protein 8.0 Albumin 3.5 Lipase Ethyl Alcohol 04/11/19 04/11/19 04/11/19 10:55 10:55 10:55 WBC RBC Hgb Hct MCV MCH MCHC RDW Plt Count MPV Immature Gran % Neutrophils % Lymphocytes % Monocytes % Eosinophils % Basophils % Absolute Neutrophils Absolute Lymphocytes Absolute Monocytes Absolute Eosinophils Absolute Basophils Differential Comment RBC Morphology Polychromasia Poikilocytosis Anisocytosis Macrocytosis PT INR APTT D-Dimer 4716 H Sodium Potassium Chloride Carbon Dioxide Anion Gap BUN Creatinine Estimated GFR/1.73 m2 Glucose Lactate Calcium Magnesium Total Bilirubin AST ALT Alkaline Phosphatase Ammonia Troponin I NT-Pro-B Natriuret Pep Total Protein Albumin Lipase 104 Ethyl Alcohol 3.3 04/11/19 04/11/19 11:50 14:37 WBC RBC Hgb Hct MCV MCH MCHC RDW Plt Count MPV Immature Gran % Neutrophils % Lymphocytes % Monocytes % Eosinophils % Basophils % Absolute Neutrophils Absolute Lymphocytes Absolute Monocytes Absolute Eosinophils Absolute Basophils Differential Comment RBC Morphology Polychromasia Poikilocytosis Anisocytosis Macrocytosis PT INR APTT D-Dimer Sodium Potassium Chloride Carbon Dioxide Anion Gap BUN Creatinine Estimated GFR/1.73 m2 Glucose Lactate 2.9 H* Calcium Magnesium Total Bilirubin AST ALT Alkaline Phosphatase Ammonia 14 Troponin I NT-Pro-B Natriuret Pep Total Protein Albumin Lipase Ethyl Alcohol Last Vital Signs Temp 36.6 C 04/11/19 10:26 Pulse 128 H 04/11/19 12:15 Resp 23 04/11/19 12:15 BP 201/110 H 04/11/19 12:15 Pulse Ox 96 04/11/19 12:15
[2019-04-11 15:32] LABS: Bilirubin Negative (Negative); Blood Trace-lysed (Negative); Clarity Clear (Clear); Glucose 100 mg/dL (Negative); Ketones 40 mg/dL (Negative); Leukocyte Esterase Negative (Negative); Nitrite Negative (Negative); Specific Gravity 1.015 (1.005-1.025); Urobilinogen 0.2 EU/dL (Up TO 0.2)
[2019-04-11 15:40] LABS: *AMPHETAMINES SCREEN URINE Negative (Negative); *BARBITURATES SCREEN URINE Negative (Negative); *BENZODIAZEPINES SCREEN URINE Negative (Negative); Cannabinoids THC Negative (Negative); Cocaine Screen,Urine Negative (Negative); METHADONE URINE SCREEN Negative (Negative); OPIATES URINE SCREEN Negative (Negative)
[2019-04-11 15:45] LABS: Tricyclic Antidepressants Negative (Negative)
[2019-04-11 15:46] LABS: Bacteria Many HPF (Negative); Crystals Negative HPF (Negative); Epithelial Cells Negative HPF (Negative); Other Cells Few Renal (Negative); RBC Negative (0-2)
[2019-04-11 15:47] LABS: C & S Indicated? Yes; Casts Negative LPF (Negative); Mucus Negative (Negative)
[2019-04-11] MEDS: LORazepam 2 MG/ML VIAL IVP ×2 (17:07→21:09)
[2019-04-11] MEDS: Normal Saline Flush 10 ML SYR IVP (17:07)
[2019-04-11] MEDS: MAGNESIUM SULFATE 2 GM/50 ML BAG IVPB (18:01)
[2019-04-11 20:43] LABS: Lactate 1.1 mmol/L (0.6-1.4)
[2019-04-12] VITALS (117 sets, daily range): BP systolic 127–185; BP diastolic 73–98; PULSE 90–120; RESP 14–37; TEMP 36.1–37.1; O2SAT 91–100
[2019-04-12 07:03] LABS: HCT 36.6 % (36.0-46.0); HGB 11.5 g/dL (12.0-15.5); Mean Corp. HGB Concentration 31.4 g/dL (32.0-36.0); Mean Corpuscular Hemoglobin 30.7 pg (27.0-33.0); Mean Corpuscular Volume 97.6 fL (80-95); Mean Platelet Volume 9.3 fL (8.0-11.0); Platelet Count 399 x1000/uL (130-400); RBC 3.75 m/cumm (4.00-5.20); RBC Distribution Width 20.1 % (11.7-14.6); White Blood Cell Count 8.87 k/cumm (4.4-10.8)
[2019-04-12 07:19] LABS: ALT 31 U/L (12-78); AST 26 U/L (15-37); Albumin 3.1 g/dL (3.4-5.0); Alkaline Phosphatase 178 U/L (46-116); Anion Gap 11.3 mmol/L (3-11); BUN 14 mg/dL (7-18); CO2 27.7 mmol/L (21.0-32.0); CREATININE 0.91 mg/dL (0.55-1.02); Chloride 105 mmol/L (98-107); Glucose 128 mg/dL (70-100); Magnesium 2.7 mg/dL (1.8-2.4); Sodium 144 mmol/L (136-145); Total Protein 7.2 g/dL (6.4-8.2)
[2019-04-12 07:24] LABS: Potassium 2.8 mmol/L (3.5-5.1)
--- NOTE | 2019-04-12 08:23 | W.PM.PROGNOT ---
Date of Service Date of service: 04/12/19 Time of Service: 11:59 Assessment and Plan (1) Alcohol withdrawal: Current visit: Yes Status: Acute Continue to monitor in the ICU. Continue CIWA, MVI, thiamine, prn ativan. on gabapentin. Schedule librium. (2) Hypomagnesemia: Current visit: Yes Status: Acute This am's magnesium is unlikely to be accurate - hasn't had time to redistribute. Recheck in am. (3) Hypertension: Current visit: Yes Status: Chronic Likely being driven by alcohol withdrawal. Will rx clonidine (4) Tachycardia: Current visit: Yes Status: Acute Manage alcohol withdrawal. Prn clonidine (5) Dyspnea: Current visit: Yes Status: Acute Could be related to possible aspiration, recent hemothorax/atelectasis, symptoms of alcohol withdrawal. Monitor for recurrence of fevers - low threshold to start broad spectrum abx (would need HCAP coverage). (6) Pleural effusion on left: Current visit: No Status: Acute Consider empyema. Consider thoracenthesis. Consider surgical consult. (7) Multiple rib fractures: Current visit: No Status: Acute Provide incentive spirometry (8) DVT prophylaxis: Current visit: Yes Status: Acute Start SCD's and TEDs. Consider sq heparin (deferring for now due to recent hemothorax) (9) Discharge planning issues: Current visit: Yes Status: Acute Full code Investigating disposition - case management on board Subjective Interval history since last seen: The patient briefly wakes up and nods yes To questions re pain (not specifying where), shortness of breath, nausea. Falls promptly back asleep. Overnight, slept. Got ativan IV @2109 (2 mg) for CIWA 12, 3 mg for a score of 18 this am. 24 yesterday @ 5 pm. Requiring O2 at 2L NC. O2 sats 98%. Exam Narrative Exam Narrative: General: elderly female, laying comfortably/calmly in bed, somnolent, arousable, falls asleep after 2-3 questions. HEENT: EOMI, MMM Heart: RRR, tachycardic, no m/r/g Lungs: diminished breath sounds B anteriorly GI: abdomen is soft, nondistended, + BS, seemingly nontender Extremities: no e/c/c BLE's, 2+ pedal pulses B, R foot with tattoo Objective Objective Clinical Data: Abnormal lab results 04/11/19 04/11/19 04/11/19 Range/Units 10:55 10:55 10:55 WBC 11.32 H (4.4-10.8) k/cumm RBC 3.75 L (4.00-5.20) m/cumm Hgb 11.8 L (12.0-15.5) g/dL Hct 35.7 L (36.0-46.0) % MCV 95.2 H (80-95) fL MCHC (32.0-36.0) g/dL RDW 19.5 H (11.7-14.6) % Plt Count 456 H (130-400) x1000/uL Absolute Neutrophils 10.55 H (1.2-6.7) k/cumm Absolute Lymphocytes 0.43 L (1.2-3.4) k/cumm D-Dimer 4716 H (<500) ng/mlFEU Potassium (3.5-5.1) mmol/L Anion Gap 17.8 H (3-11) mmol/L Glucose 188 H (70-100) mg/dL Lactate (0.6-1.4) mmol/L Calcium 10.2 H (8.5-10.1) mg/dL Magnesium 1.6 L (1.8-2.4) mg/dL AST 42 H (15-37) U/L Alkaline Phosphatase 196 H (46-116) U/L NT-Pro-B Natriuret Pep 304 H ( - 299) pg/mL Albumin (3.4-5.0) g/dL Urine Protein (Negative) mg/dL Urine Ketones (Negative) mg/dL Urine Blood (Negative) 04/11/19 04/11/19 04/12/19 Range/Units 14:37 14:49 06:35 WBC (4.4-10.8) k/cumm RBC (4.00-5.20) m/cumm Hgb (12.0-15.5) g/dL Hct (36.0-46.0) % MCV (80-95) fL MCHC (32.0-36.0) g/dL RDW (11.7-14.6) % Plt Count (130-400) x1000/uL Absolute Neutrophils (1.2-6.7) k/cumm Absolute Lymphocytes (1.2-3.4) k/cumm D-Dimer (<500) ng/mlFEU Potassium 2.8 L* D (3.5-5.1) mmol/L Anion Gap 11.3 H (3-11) mmol/L Glucose 128 H (70-100) mg/dL Lactate 2.9 H* (0.6-1.4) mmol/L Calcium (8.5-10.1) mg/dL Magnesium 2.7 H (1.8-2.4) mg/dL AST (15-37) U/L Alkaline Phosphatase 178 H (46-116) U/L NT-Pro-B Natriuret Pep ( - 299) pg/mL Albumin 3.1 L (3.4-5.0) g/dL Urine Protein >=300 H (Negative) mg/dL Urine Ketones 40 H (Negative) mg/dL Urine Blood Trace-lysed H (Negative) 04/12/19 Range/Units 06:35 WBC (4.4-10.8) k/cumm RBC 3.75 L (4.00-5.20) m/cumm Hgb 11.5 L (12.0-15.5) g/dL Hct (36.0-46.0) % MCV 97.6 H (80-95) fL MCHC 31.4 L (32.0-36.0) g/dL RDW 20.1 H (11.7-14.6) % Plt Count (130-400) x1000/uL Absolute Neutrophils (1.2-6.7) k/cumm Absolute Lymphocytes (1.2-3.4) k/cumm D-Dimer (<500) ng/mlFEU Potassium (3.5-5.1) mmol/L Anion Gap (3-11) mmol/L Glucose (70-100) mg/dL Lactate (0.6-1.4) mmol/L Calcium (8.5-10.1) mg/dL Magnesium (1.8-2.4) mg/dL AST (15-37) U/L Alkaline Phosphatase (46-116) U/L NT-Pro-B Natriuret Pep ( - 299) pg/mL Albumin (3.4-5.0) g/dL Urine Protein (Negative) mg/dL Urine Ketones (Negative) mg/dL Urine Blood (Negative) Vital Signs Temperature 36.5 C 04/12/19 04:33 Temperature Source Temporal Artery Scan 04/12/19 04:33 Pulse 100 H 04/12/19 05:00 Pulse 110 H 04/12/19 05:40 Respiratory Rate 25 H 04/12/19 05:40 Respiratory Effort 04/12/19 04:33 Respiratory Depth Deep 04/12/19 04:33 Respiratory Pattern Tachypnea 04/11/19 16:40 Blood Pressure 168/79 H 04/12/19 05:00 Blood Pressure Mean 97 04/12/19 05:00 Blood Pressure Position Supine 04/12/19 04:33 Pulse Oximetry 97 04/12/19 05:40 Oxygen Delivery Method Nasal Cannula 04/12/19 04:33 Oxygen Flow Rate 2 04/12/19 04:33 Pain Level 0 04/12/19 04:33 Intake & Output 04/11/19 04/11/19 04/12/19 11:59 23:59 11:59 Intake Total 1000 / 1000 Balance 1000 / 1000 Weight 61.235 kg 60 kg 62.4 kg Intake: IV 1000 / 1000 Other: Urine Color Light Nguyen Urine Odor Strong Voiding Methods Diaper Laboratory Results WBC 8.87 k/cumm (4.4-10.8) 04/12/19 06:35 RBC 3.75 m/cumm (4.00-5.20) L 04/12/19 06:35 Hgb 11.5 g/dL (12.0-15.5) L 04/12/19 06:35 Hct 36.6 % (36.0-46.0) 04/12/19 06:35 MCV 97.6 fL (80-95) H 04/12/19 06:35 MCH 30.7 pg (27.0-33.0) 04/12/19 06:35 MCHC 31.4 g/dL (32.0-36.0) L 04/12/19 06:35 RDW 20.1 % (11.7-14.6) H 04/12/19 06:35 Plt Count 399 x1000/uL (130-400) 04/12/19 06:35 MPV 9.3 fL (8.0-11.0) 04/12/19 06:35 Immature Gran % 0.2 04/11/19 10:55 93.2 04/11/19 10:55 3.8 04/11/19 10:55 2.7 04/11/19 10:55 0.0 04/11/19 10:55 0.1 04/11/19 10:55 Absolute Neutrophils 10.55 k/cumm (1.2-6.7) H 04/11/19 10:55 Absolute Lymphocytes 0.43 k/cumm (1.2-3.4) L 04/11/19 10:55 Absolute Monocytes 0.31 k/cumm (0.11-0.7) 04/11/19 10:55 Absolute Eosinophils 0.00 k/cumm (0.0-0.7) 04/11/19 10:55 Absolute Basophils 0.01 k/cumm (0.0-0.2) 04/11/19 10:55 Rbc morph reviewed 04/11/19 10:55 RBC Morphology See below 04/11/19 10:55 Present 04/11/19 10:55 2+ 04/11/19 10:55 2+ 04/11/19 10:55 2+ 04/11/19 10:55 PT 9.8 sec (9.3-11.0) 04/11/19 10:55 INR 1.0 (0.9-1.1) 04/11/19 10:55 APTT 21.8 sec (21.0-31.4) 04/11/19 10:55 4716 ng/mlFEU (<500) H 04/11/19 10:55 Sodium 144 mmol/L (136-145) 04/12/19 06:35 Potassium 2.8 mmol/L (3.5-5.1) L* D 04/12/19 06:35 Chloride 105 mmol/L (98-107) 04/12/19 06:35 Carbon Dioxide 27.7 mmol/L (21.0-32.0) 04/12/19 06:35 11.3 mmol/L (3-11) H 04/12/19 06:35 BUN 14 mg/dL (7-18) 04/12/19 06:35 0.91 mg/dL (0.55-1.02) 04/12/19 06:35 >= 60.00 (mL/min/1.73m2) 04/12/19 06:35 Glucose 128 mg/dL (70-100) H 04/12/19 06:35 1.1 mmol/L (0.6-1.4) 04/11/19 20:30 Calcium 10.0 mg/dL (8.5-10.1) 04/12/19 06:35 Magnesium 2.7 mg/dL (1.8-2.4) H 04/12/19 06:35 1.0 mg/dL (0.2-1.0) 04/12/19 06:35 AST 26 U/L (15-37) 04/12/19 06:35 ALT 31 U/L (12-78) 04/12/19 06:35 178 U/L (46-116) H 04/12/19 06:35 14 umol/L (11-32) 04/11/19 11:50 < 0.05 ng/mL (0.00-0.06) 04/11/19 10:55 NT-Pro-B Natriuret Pep 304 pg/mL (-299) H 04/11/19 10:55 7.2 g/dL (6.4-8.2) 04/12/19 06:35 3.1 g/dL (3.4-5.0) L 04/12/19 06:35 104 U/L (73-393) 04/11/19 10:55 Yellow (Yellow) 04/11/19 14:49 Clear (Clear) 04/11/19 14:49 7.0 (5-8) 04/11/19 14:49 Ur Specific [place] 1.015 (1.005-1.025) 04/11/19 14:49 >=300 mg/dL (Negative) H 04/11/19 14:49 40 mg/dL (Negative) H 04/11/19 14:49 Trace-lysed (Negative) H 04/11/19 14:49 Negative (Negative) 04/11/19 14:49 Negative (Negative) 04/11/19 14:49 0.2 EU/dL (Up TO 0.2) 04/11/19 14:49 Ur Leukocyte Esterase Negative (Negative) 04/11/19 14:49 Negative (0-2) 04/11/19 14:49 5-10 HPF (0-5) 04/11/19 14:49 Ur Epithelial Cells Negative HPF (Negative) 04/11/19 14:49 Negative HPF (Negative) 04/11/19 14:49 Many HPF (Negative) 04/11/19 14:49 Negative LPF (Negative) 04/11/19 14:49 Negative (Negative) 04/11/19 14:49 Few renal (Negative) 04/11/19 14:49 Ur Culture Indicated? Yes 04/11/19 14:49 100 mg/dL (Negative) 04/11/19 14:49 Negative (Negative) 04/11/19 14:49 Negative (Negative) 04/11/19 14:49 Ur Barbiturates Screen Negative (Negative) 04/11/19 14:49 Ur Tricyclics Screen Negative (Negative) 04/11/19 14:49 Ur Amphetamines Screen Negative (Negative) 04/11/19 14:49 U Benzodiazepines Scrn Negative (Negative) 04/11/19 14:49 Negative (Negative) 04/11/19 14:49 Ur THC Screen Negative (Negative) 04/11/19 14:49 Ethyl Alcohol 3.3 mg/dL (<3) 04/11/19 10:55
[2019-04-12 09:13] LABS: FREE T4 1.32 ng/dL (0.76-1.46)
[2019-04-12] MEDS: Folic Acid 1 MG TAB PO (09:43)
[2019-04-12] MEDS: Gabapentin 300 MG CAP PO ×3 (09:43→20:43)
[2019-04-12] MEDS: Magnesium Oxide 400 MG TAB PO ×2 (09:43→20:43)
[2019-04-12] MEDS: amLODIPine 10 MG TAB PO (09:43)
[2019-04-12] MEDS: Venlafaxine 150 MG CAPCR PO (09:43)
[2019-04-12] MEDS: Pantoprazole 40 MG TABCR PO (09:44)
[2019-04-12] MEDS: hydroCHLOROthiazide 12.5 MG TAB PO (09:44)
[2019-04-12] MEDS: Thiamine 100 MG TAB PO (09:44)
[2019-04-12] MEDS: Potassium Chloride 20 MEQ TABCR 40 MEQ PO ×2 (09:44→13:52)
[2019-04-12] MEDS: LORazepam 2 MG/ML VIAL IVP (09:45)
[2019-04-12] MEDS: Lidocaine 5% Patch 1 PATCH TP (09:46)
[2019-04-12] MEDS: POTASSIUM CHLORIDE 20 MEQ/100 ML BAG 50 MEQ IVPB (09:46)
[2019-04-12] MEDS: Multivitamin w/Minerals TAB 1 TAB PO (09:48)
--- NOTE | 2019-04-12 10:28 | INITIAL_ITS ---
Care Management Initial Assess REASON FOR HOSPITALIZATION:: Tachycardia, HTN PAST MEDICAL HISTORY/PAST SURGICAL HISTORY:: Medical: Alcohol abuse (Chronic), Alcoholic ketosis (Resolved), Allergic rhinitis (Chronic), Anemia (Chronic 12/20/16); Back pain, chronic (Chronic). Cataract (Chronic 11/07/15); Cervical radicular pain (Chronic); Chronic alcoholic gastritis (Chronic 10/12/17); Depression (Chronic); Elev transaminase/LDH (Chronic),Falling (Chronic), Genital herpes simplex (Chronic); GERD (gastroesophageal reflux disease) (Chronic); GI bleed (Chronic 12/20/16); Headache (Chronic); Hyperlipidemia (Chronic); Hypertension (Chronic); Macrocytosis (Chronic 09/26/14); Multiple rib fractures (Acute); Non-cardiac chest pain (Chronic 09/21/16); Osteoarthritis (Chronic); Osteopenia (Chronic); 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). Pleural effusion on left (Acute); Right rib fracture (Resolved); Sciatica (Chronic); Tubular adenoma of colon (Chronic 01/28/17); Urinary incontinence (Chronic); Wernicke encephalopathy (Chronic). Surgical: Bladder Surgery; Colonoscopy - MAC (01/28/17); EGD - MAC (12/20/16); Ligation of fallopian tube; Repair bladder injury, simple PREVIOUS FUNCTIONAL STATUS/SOCIAL/FAMILY SUPPORTS:: Lives alone at her home in [place]. Has one dog. Does not currently attend AA meetings. No current contact with [place] on Aging. CCC at [facility] does periodically contact her. No other services at this time. Sister, Robyn Samuel, lives nearby and has been supportive. CURRENT FUNCTIONAL STATUS:: Frail appearing. Asked to call her brother and let him know she was in the hospital. He is actually and this happened over a year ago. States she has not had any alcohol intake at all. Clinical documentation states she is in withdrawal at this time. Has been medicated and is very sleepy at this time. ADVANCE DIRECTIVES:: None on file Has patient been provided with information about the portal?: No Did the patient sign up for the portal?: No CODE STATUS:: Full Code INSURANCE COVERAGE / FINANCIAL ISSUES:: Commercial MCR replacement. Financial Assist 70% CURRENT HOME/COMMUNITY SERVICES/EQUIPMENT:: Owns a FWW. No current services PRIMARY CARE PHYSICIAN:: [facility]: Lavelle Galindo MD POTENTIAL DISCHARGE NEEDS:: HH, [facility], [facility] PATIENT/FAMILY EDUCATION NEEDS:: Discharge instructions. ANTICIPATED BARRIERS TO DISCHARGE:: None identified TRANSPORTATION:: Taxi PLAN:: Leticia will return home when medically cleared for discharge. Plan to connect her to a [facility] and any other services she may need at that time.
--- NOTE | 2019-04-12 10:36 | PHARADMIT ---
Addendum entered by Tarah Benjamin 04/15/19 13:02: Pharmacy Note Subjective overnight fall w/fractured index finger-tripped on SCD tubing Objective BP 163/94, HR 80-90's, CIWA 2, Afebrile, pain 5/10, no weight, Mag 2.0 Assessment slight improvement in HR with Metoprolol addition, still hypertensive no signs of withdrawl Magnesium level recovered no new med orders today Plan wrist immobilizer & tape after seen by Likely return home Tuesday w/services as mentioned below Addendum entered by Tarah Benjamin 04/14/19 13:05: Pharmacy Note Subjective Objective BP 158/81, HR 87, CIWA zero, Mag 1.6 Urine growing Klebsiella >100K but Asymptomatic...not treating Assessment Librium dose decreased as CIWA scores are low, has Lorazepam if needed Starting Metoprolol 50mg po BID and IV prn both with hold parameters to treat underlying tachycardia Also on Amlodipine which was dc'd off home med list while in the ED Spent lengthy time reading old reports, calling local pharmacies for med history and spoke w/RN at [facility] about her meds during last admission just before her admission to our ER (thru 04/09/19), was home only two days before our admission on 04/11/19 and med list not accurate. Old notes state pt often is non-compliant with meds [facility]ano last filled HCTZ and Amlodipine 02/27/19 but patient also had a [facility] admission recently for a lung mass...won't be able to treat until she is 90 days sober, was trying to get into [facility]. GP is Ck Galindo Mag 2gram IV x1, Naproxen dc'd, Tramadol started Plan Tx to M/S, anticipate discharge home with counseling for sobriety when ready Addendum entered by Licha Atkinson 04/13/19 17:20: Pharmacy Note Subjective patient working with PT and OT; speaking more clearly per progress note Objective BP-146/75 HR-96 other VS okay CIWA-5 Na-135 K+4.3(improved) h/h-10.2/32.69(down) Assessment IV fluids discontinued, no other med changes so far today Plan may move to [place] pending CIWA Original Note: Admission Pharmacy Clinical Review Code Status Full Code Current Weight 62.4 kg Renally Cleared and Narrow Therapeutic Index Meds CrCl ~42 ml/min QTc Value / Action Taken QTc 467 BP Control, Fever BP 150/75, HR 103 afebrile Electrolytes reviewed Na 144, K+ 2.8, Mg 2.7 DVT Prophylaxis No Opiate Usage / Scheduled Bowel Regimen Ordered None Plt/SCr for Heparin / Enoxaparin INR for Warfarin H/H stable, WBC/Bands H/H 36.6/11.5, WBC 8.87 Antibiotic appropriateness Cultures and Sensitivities Surgical ABX d/c within 24 hr DM control / Insulin Dosing Heart Failure (Check EF%) (AMBER's, B-Block, Diuretics) AMLODIPINE, HCTZ IV to PO Switch NA Home Meds Reviewed Yes-meds ok Home Meds Not Ordered ferrous sulfate, flonase, naltrexone, vitamin b6, vitamin d3, ranitidine Comments Received Potassium 40meq IV and PO CIWA - needed iv ativan yesterday @4482
[2019-04-12] MEDS: POTASSIUM CHLORIDE 20 MEQ/100 ML BAG 25 MEQ IVPB (13:50)
[2019-04-12] MEDS: chlordiazePOXIDE 25 MG CAP PO ×2 (13:52→20:44)
--- NOTE | 2019-04-12 15:43 | CHAPLAIN ---
Leticia had been medicated and was drowsy when I visited. She responded to her nurse speaking directly to her, and when then fall asleep again. I will check in with her tomorrow.
[2019-04-13] VITALS (63 sets, daily range): BP systolic 96–162; BP diastolic 72–95; PULSE 93–111; RESP 16–27; TEMP 36.6–36.9; O2SAT 95–97
[2019-04-13] MEDS: Acetaminophen 500 MG TAB 1000 MG PO ×2 (02:16→17:04)
[2019-04-13 07:21] LABS: Abs Immature Grans 0.01 k/cumm (0.0-0.09); Absolute Basophil Count 0.02 k/cumm (0.0-0.2); Absolute Eosinophil Count 0.19 k/cumm (0.0-0.7); Absolute Monocyte Count 0.52 k/cumm (0.11-0.7); Basophils % 0.3; Eosinophils % 2.7; HCT 32.9 % (36.0-46.0); HGB 10.2 g/dL (12.0-15.5); Immature Grans % 0.1; Lymphocytes % 20.2; Mean Corpuscular Hemoglobin 30.8 pg (27.0-33.0); Mean Corpuscular Volume 99.4 fL (80-95); Mean Platelet Volume 9.6 fL (8.0-11.0); Monocytes % 7.5; Neutrophils % 69.2; Platelet Count 390 x1000/uL (130-400); RBC 3.31 m/cumm (4.00-5.20); RBC Distribution Width 19.1 % (11.7-14.6); White Blood Cell Count 6.94 k/cumm (4.4-10.8)
[2019-04-13 07:37] LABS: Anion Gap 9.6 mmol/L (3-11); BUN 15 mg/dL (7-18); CO2 24.4 mmol/L (21.0-32.0); CREATININE 0.91 mg/dL (0.55-1.02); Calcium 9.5 mg/dL (8.5-10.1); Chloride 101 mmol/L (98-107); Glucose 135 mg/dL (70-100); Magnesium 1.8 mg/dL (1.8-2.4); Potassium 4.3 mmol/L (3.5-5.1); Sodium 135 mmol/L (136-145)
--- NOTE | 2019-04-13 08:26 | PGE_ITS ---
Date of Service Date of service: 04/13/19 Time of Service: 08:26 Assessment and Plan (1) Alcohol withdrawal: Current visit: Yes Status: Acute Transfer out of ICU to [facility] with tele. Continue CIWA, MVI, thiamine, prn ativan PO/SL, gabapentin. Continue current dose of Scheduled librium. (2) Hypomagnesemia: Current visit: Yes Status: Acute Monitor. Recheck in am. (3) Hypertension: Current visit: Yes Status: Chronic Likely being driven by alcohol withdrawal. Continue prn clonidine (4) Tachycardia: Current visit: Yes Status: Acute Manage alcohol withdrawal. Prn clonidine (5) Dyspnea: Current visit: Yes Status: Acute I do not appreciate increased work of breathing, hypoxia, any signs of respiratory distress. Her imaging reveals improvement of the pleural effusion. I wonder if this is this patient's sensation of anxiety. No fevers. (6) Pleural effusion on left: Current visit: No Status: Chronic No clinical evidence of empyema - no role for antibiotics. Monitor for fevers. (7) Multiple rib fractures: Current visit: No Status: Acute Provide incentive spirometry (8) Asymptomatic bacteriuria: Current visit: Yes Status: Acute D/c ochoa. No indication for abx. (9) DVT prophylaxis: Current visit: Yes Status: Acute SCD's and TEDs. Consider sq heparin (deferring for now due to recent hemothorax) (10) Discharge planning issues: Current visit: Yes Status: Acute Transfer out of ICU. Full code Investigating disposition - case management on board Subjective Interval history since last seen: Patient is much more awake today. Complains of feeling like she was run over by a truck. Denies dizziness, chest pain, nausea, vomiting. Reports a cough and shortness of breath. Nursing does not confirm that the patient has been coughing. Patient says that she has not drunk in over a month. CIWA scores low today. Overnight, 10 - 6 -2, no ativan given. C/o chronic headache - better with tylenol. On tele, sinus tach in low 100's. BP's are trending down as well. Eating, drinking. Exam Narrative Exam Narrative: General: elderly female, still slightly disoriented, but A&OX3, follows commands, conversant, stays awake HEENT: EOMI, MMM Heart: RRR, tachycardic, no m/r/g Lungs: crackles at B bases GI: abdomen is soft, nondistended, + BS, nontender Extremities: no e/c/c BLE's, 2+ pedal pulses B, R foot with tattoo Objective Objective Clinical Data: Abnormal lab results 04/12/19 04/13/19 04/13/19 Range/Units 06:35 06:15 06:15 RBC 3.31 L (4.00-5.20) m/cumm Hgb 10.2 L (12.0-15.5) g/dL Hct 32.9 L (36.0-46.0) % MCV 99.4 H (80-95) fL MCHC 31.0 L (32.0-36.0) g/dL RDW 19.1 H (11.7-14.6) % Sodium 135 L (136-145) mmol/L Potassium 2.8 L* D (3.5-5.1) mmol/L Anion Gap 11.3 H (3-11) mmol/L Glucose 128 H 135 H (70-100) mg/dL Magnesium 2.7 H (1.8-2.4) mg/dL Alkaline Phosphatase 178 H (46-116) U/L Albumin 3.1 L (3.4-5.0) g/dL Vital Signs Temperature 36.6 C 04/13/19 02:51 Temperature Source Temporal Artery Scan 04/12/19 23:50 Pulse 100 H 04/13/19 06:00 Pulse 97 H 04/13/19 06:30 Respiratory Rate 20 04/13/19 06:30 Respiratory Effort Pursed Lip 04/13/19 02:51 Respiratory Depth Normal 04/13/19 02:51 Respiratory Pattern Normal 04/13/19 02:51 Blood Pressure 132/77 04/13/19 06:00 Blood Pressure Mean 91 04/13/19 06:00 Blood Pressure Position Supine 04/12/19 21:36 Pulse Oximetry 94 L 04/12/19 23:50 Oxygen Delivery Method Room Air 04/13/19 02:51 Oxygen Flow Rate 0 04/13/19 02:51 Pain Level 6 04/13/19 04:28 Intake & Output 04/12/19 04/12/19 04/13/19 11:59 23:59 11:59 Intake Total 432.5 / 2097.0 1664.5 / 2097.0 640 / 640 Output Total 250 / 250 200 / 200 Balance 432.5 / 1847.0 1414.5 / 1847.0 440 / 440 Weight 62.4 kg 64.1 kg Intake: IV 32.5 / 270.0 237.5 / 270.0 Oral 400 / 1827 1427 / 1827 640 / 640 Output: Urine 250 / 250 200 / 200 Other: Urine Color Light Nguyen Light Nguyen Light Nguyen Urine Appearance Cloudy Cloudy Urine Odor Normal Comment ochoa patent ochoa patent. Ochoa flushed at this time. Voiding Methods Diaper Laboratory Results WBC 6.94 k/cumm (4.4-10.8) 04/13/19 06:15 RBC 3.31 m/cumm (4.00-5.20) L 04/13/19 06:15 Hgb 10.2 g/dL (12.0-15.5) L 04/13/19 06:15 Hct 32.9 % (36.0-46.0) L 04/13/19 06:15 MCV 99.4 fL (80-95) H 04/13/19 06:15 MCH 30.8 pg (27.0-33.0) 04/13/19 06:15 MCHC 31.0 g/dL (32.0-36.0) L 04/13/19 06:15 RDW 19.1 % (11.7-14.6) H 04/13/19 06:15 Plt Count 390 x1000/uL (130-400) 04/13/19 06:15 MPV 9.6 fL (8.0-11.0) 04/13/19 06:15 Immature Gran % 0.1 04/13/19 06:15 69.2 04/13/19 06:15 20.2 04/13/19 06:15 7.5 04/13/19 06:15 2.7 04/13/19 06:15 0.3 04/13/19 06:15 Absolute Neutrophils 4.80 k/cumm (1.2-6.7) 04/13/19 06:15 Absolute Lymphocytes 1.40 k/cumm (1.2-3.4) 04/13/19 06:15 Absolute Monocytes 0.52 k/cumm (0.11-0.7) 04/13/19 06:15 Absolute Eosinophils 0.19 k/cumm (0.0-0.7) 04/13/19 06:15 Absolute Basophils 0.02 k/cumm (0.0-0.2) 04/13/19 06:15 Rbc morph reviewed 04/11/19 10:55 RBC Morphology See below 04/11/19 10:55 Present 04/11/19 10:55 2+ 04/11/19 10:55 2+ 04/11/19 10:55 2+ 04/11/19 10:55 PT 9.8 sec (9.3-11.0) 04/11/19 10:55 INR 1.0 (0.9-1.1) 04/11/19 10:55 APTT 21.8 sec (21.0-31.4) 04/11/19 10:55 4716 ng/mlFEU (<500) H 04/11/19 10:55 Sodium 135 mmol/L (136-145) L 04/13/19 06:15 Potassium 4.3 mmol/L (3.5-5.1) D 04/13/19 06:15 Chloride 101 mmol/L (98-107) 04/13/19 06:15 Carbon Dioxide 24.4 mmol/L (21.0-32.0) 04/13/19 06:15 9.6 mmol/L (3-11) 04/13/19 06:15 BUN 15 mg/dL (7-18) 04/13/19 06:15 0.91 mg/dL (0.55-1.02) 04/13/19 06:15 >= 60.00 (mL/min/1.73m2) 04/13/19 06:15 Glucose 135 mg/dL (70-100) H 04/13/19 06:15 1.1 mmol/L (0.6-1.4) 04/11/19 20:30 Calcium 9.5 mg/dL (8.5-10.1) 04/13/19 06:15 Magnesium 1.8 mg/dL (1.8-2.4) 04/13/19 06:15 1.0 mg/dL (0.2-1.0) 04/12/19 06:35 AST 26 U/L (15-37) 04/12/19 06:35 ALT 31 U/L (12-78) 04/12/19 06:35 178 U/L (46-116) H 04/12/19 06:35 14 umol/L (11-32) 04/11/19 11:50 < 0.05 ng/mL (0.00-0.06) 04/11/19 10:55 NT-Pro-B Natriuret Pep 304 pg/mL (-299) H 04/11/19 10:55 7.2 g/dL (6.4-8.2) 04/12/19 06:35 3.1 g/dL (3.4-5.0) L 04/12/19 06:35 104 U/L (73-393) 04/11/19 10:55 TSH 0.40 uIU/mL (0.36-3.74) 04/12/19 06:35 Free T4 1.32 ng/dL (0.76-1.46) 04/12/19 06:35 Yellow (Yellow) 04/11/19 14:49 Clear (Clear) 04/11/19 14:49 7.0 (5-8) 04/11/19 14:49 Ur Specific [place] 1.015 (1.005-1.025) 04/11/19 14:49 >=300 mg/dL (Negative) H 04/11/19 14:49 40 mg/dL (Negative) H 04/11/19 14:49 Trace-lysed (Negative) H 04/11/19 14:49 Negative (Negative) 04/11/19 14:49 Negative (Negative) 04/11/19 14:49 0.2 EU/dL (Up TO 0.2) 04/11/19 14:49 Ur Leukocyte Esterase Negative (Negative) 04/11/19 14:49 Negative (0-2) 04/11/19 14:49 5-10 HPF (0-5) 04/11/19 14:49 Ur Epithelial Cells Negative HPF (Negative) 04/11/19 14:49 Negative HPF (Negative) 04/11/19 14:49 Many HPF (Negative) 04/11/19 14:49 Negative LPF (Negative) 04/11/19 14:49 Negative (Negative) 04/11/19 14:49 Few renal (Negative) 04/11/19 14:49 Ur Culture Indicated? Yes 04/11/19 14:49 100 mg/dL (Negative) 04/11/19 14:49 Negative (Negative) 04/11/19 14:49 Negative (Negative) 04/11/19 14:49 Ur Barbiturates Screen Negative (Negative) 04/11/19 14:49 Ur Tricyclics Screen Negative (Negative) 04/11/19 14:49 Ur Amphetamines Screen Negative (Negative) 04/11/19 14:49 U Benzodiazepines Scrn Negative (Negative) 04/11/19 14:49 Negative (Negative) 04/11/19 14:49 Ur THC Screen Negative (Negative) 04/11/19 14:49 Ethyl Alcohol 3.3 mg/dL (<3) 04/11/19 10:55
[2019-04-13] MEDS: Lidocaine 5% Patch 1 PATCH TP (09:26)
[2019-04-13] MEDS: Gabapentin 300 MG CAP PO ×3 (09:27→19:41)
[2019-04-13] MEDS: Magnesium Oxide 400 MG TAB PO ×2 (09:27→19:41)
[2019-04-13] MEDS: Normal Saline 1,000 ML 100 ML IV (09:27)
[2019-04-13] MEDS: Pantoprazole 40 MG TABCR PO (09:28)
[2019-04-13] MEDS: amLODIPine 10 MG TAB PO (09:28)
[2019-04-13] MEDS: Multivitamin w/Minerals TAB 1 TAB PO (09:28)
[2019-04-13] MEDS: Venlafaxine 150 MG CAPCR PO (09:28)
[2019-04-13] MEDS: chlordiazePOXIDE 25 MG CAP PO ×3 (09:28→19:41)
[2019-04-13] MEDS: Thiamine 100 MG TAB PO (09:28)
[2019-04-13] MEDS: Folic Acid 1 MG TAB PO (09:28)
--- NOTE | 2019-04-13 10:48 | OTIE_ITS ---
Occupational Therapy Notes Inpatient Occupational Therapy Evaluation Date: 04/13/19 Referring Doctor:Laly Dumont MD OT Orders: Eval and Treat Precautions: Fall, Standard PATIENT PROFILE/ADMITTING DIAGNOSIS: Pt is a 73 year old female who was admitted through the ER to the ICU one day after being discharged from [facility] for shortness of breath, nausea, vomiting. Past Medical History: Medical History (Updated 04/11/19 @ 15:52 by Susie Moore MD) Alcohol abuse (Chronic) Alcoholic ketosis (Resolved) Allergic rhinitis (Chronic) Anemia (Chronic 12/20/16) Back pain, chronic (Chronic) Cataract (Chronic 11/07/15) Cervical radicular pain (Chronic) Chronic alcoholic gastritis (Chronic 10/12/17) Depression (Chronic) Elev transaminase/LDH (Chronic) Falling (Chronic) Genital herpes simplex (Chronic) GERD (gastroesophageal reflux disease) (Chronic) GI bleed (Chronic 12/20/16) Headache (Chronic) Hyperlipidemia (Chronic) Hypertension (Chronic) Macrocytosis (Chronic 09/26/14) Multiple rib fractures (Acute) Non-cardiac chest pain (Chronic 09/21/16) Osteoarthritis (Chronic) Osteopenia (Chronic) 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) Pleural effusion on left (Acute) Right rib fracture (Resolved) Sciatica (Chronic) Tubular adenoma of colon (Chronic 01/28/17) Urinary incontinence (Chronic) Wernicke encephalopathy (Chronic) Surgical History Bladder Surgery Colonoscopy - MAC (01/28/17) EGD - MAC (12/20/16) Ligation of fallopian tube Repair bladder injury, simple Social History/Home Situation: Pt reports that she was just recently discharged from the [facility] the other day because of funds running out. She reports that she lives in a private home and has a caregiver who comes into the home 2 hours per day. She reports that her caregiver (A) with laundry, grocery shopping and homecare tasks. Pt states that she takes a shower 2x per week. She states that she has a shower seat and what she considers a regular shower. She has a regular toilet and grab bars near her shower but they are removeable. She states that otherwise she feels she is (I) and is able to wash and dress herself. She states that she sometimes has difficulty with LE dressing but this comes and goes she states that she never knows how the day will be. Equipment owned/DME: grab bars, shower seat. SUBJECTIVE: Pt was sitting in bed when OT arrived. She was agreeable to OT session. 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 Pt required vc throughout and min (A). TOILETING on commode min (A) With toileting hygiene. BALANCE: Static sitting Normal Dynamic Sitting Good Static Standing Good Dynamic Standing Good SPECIAL TESTS: Daily Activity Limitations Standardized Measure [facility] AM -PAC ?6 clicks? Daily Activity Inpatient Short Form: Raw score: 20 Standardized score: 42.03 CMS score: 38.32% INFORMED CONSENT/EDUCATION: Pt instructed in purpose of OT Consult and plan of care. ASSESSMENT: Patient is a 73-year-old female referred to occupational therapy services with diagnosis of shortness of breath, nausea, vomiting with care in the ICU due to pts significant medical hx. Patient presents with clinical signs and symptoms consistent with dx, as demonstrated by the following impairment level findings/functional limitations: Decreased functional activity tolerance, decreased (I) in her ADL/IADL routines, decreased functional mobility. Pt would benefit from skilled OT services for increased (I) in her ADL routines, education on adapative equipment and education on energy conservation techniques. AMPAC score 20, CMS score 38.32% Patient is assessed as a Moderate 18492 complexity based on the following: History: See Above Examination: See Above Presentation: Evolving Decision Making: AMPAC score 20, CMS score 38.32% GOALS Goals x1 week 1. Transfers- SBA, FWW 2. Dressing sitting on side of bed (I) with use of sock with ideal technique for socks, (I) with UE 3. Bathing sitting on side of bed (I) UE/LE 4. Toileting on commode (I) 5. Eating (I) 6. Grooming- standing at sink pt will be able to stand at sink with FWW (I) with brushing teeth PLAN OF CARE/TREATMENT PLAN: 1x/day, 5 days/ week x 1week Initiate Occupational Therapy Services for bathing, dressing, grooming, toileting, eating, transfer training. DISCHARGE RECOMMENDATIONS SNF based on pts current functional level of status, OT will continue to assess pts functional (I) and make recommendations as needed. TREATMENT TIME/MINUTES/CODES 54246, 30 minutes (09:35) Yee Elizalde OTR/L [facility]
--- NOTE | 2019-04-13 14:52 | PT.INTREAT ---
Date of service: 04/13/19 Time of Service: 14:52 PT Notes Inpatient Physical Therapy Treatment Note [facility] Date: 04/13/19 PRECAUTIONS: Fall SUBJECTIVE: Leticia is agreeable to PT following some encouragement. She reports at the completion of the PT session that she has a headache. OBJECTIVE: PAIN: No c/o pain BED MOBILITY/TRANSFERS Supine-sit: S with HOB at 40 degrees Sit-stand: SBA Stand-sit: SBA GAIT Assistive Device: FWW Weight bearing: Full Assist: CGA Distance: 80' Deviation: Slow pacing, increased fatigue THEREX: Patient completed several LE strengthening exercises, in a seated position, as per flow sheet. ASSESSMENT: Patient tolerated a progression in gait distance with FWW support and CGA. She continues to demonstrate slow pacing with gait and transfers. She would benefit from continued gait and transfer training for improved mobility and activity tolerance. PLAN: Continue with PT's POC TREATMENT CODE/TIME: 30 minutes; 51092, 55013
--- NOTE | 2019-04-13 15:10 | CHAPLAIN ---
Leticia was having a late lunch when I visited. We remember each other from previous admissions. She told me about being at [facility] before coming here. She said she was disappointed she didn't get a much PT as she though she would. She talked about her four cats and how she misses them.
--- NOTE | 2019-04-13 16:09 | CMPROGNOTE_ITS ---
Care Management Progress Note S/O: Lying in bed and alert today. States she has been receiving Meals on Wheels and has a private caregiver, Armida Lo, who comes in a few times each week. he was just discharged from [facility] less than a week prior to this admission. A: 73 y.o. female admitted for tachycardia and Hypertension. P: Leticia will return home and resume her current services. [facility] to transport. Will request a professional athletes coach contact.
--- NOTE | 2019-04-13 17:00 | IN_ITS ---
Date of service: 04/13/19 Time of Service: 09:56 PT Notes Inpatient Physical Therapy Evaluation Date: 04/13/2019 Referring Doctor: Laly Dumont MD PT Orders: PT CONSULT: eval/treat Precautions: High fall risk. Standard. Activity as tolerated Patient Profile/Admitting Diagnosis: Patient is a 73-year-old female with past medical history significant for ET OH abuse, back pain, depression, and frequent falling who presented to the ED 04/11/2019 with chief complaints of shortness of breath, nausea, and vomiting. Patient was diagnosed with dyspnea, tachycardia, hypertension, and toe abuse, lactic acidosis, and hypomagnesemia. PMHX: Medical History (Updated 04/11/19 @ 15:52 by Susie Moore MD) Alcohol abuse (Chronic) Alcoholic ketosis (Resolved) Allergic rhinitis (Chronic) Anemia (Chronic 12/20/16) Back pain, chronic (Chronic) Cataract (Chronic 11/07/15) Cervical radicular pain (Chronic) Chronic alcoholic gastritis (Chronic 10/12/17) Depression (Chronic) Elev transaminase/LDH (Chronic) Falling (Chronic) Genital herpes simplex (Chronic) GERD (gastroesophageal reflux disease) (Chronic) GI bleed (Chronic 12/20/16) Headache (Chronic) Hyperlipidemia (Chronic) Hypertension (Chronic) Macrocytosis (Chronic 09/26/14) Multiple rib fractures (Acute) Non-cardiac chest pain (Chronic 09/21/16) Osteoarthritis (Chronic) Osteopenia (Chronic) 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) Pleural effusion on left (Acute) Right rib fracture (Resolved) Sciatica (Chronic) Tubular adenoma of colon (Chronic 01/28/17) Urinary incontinence (Chronic) Wernicke encephalopathy (Chronic) Surgical History Bladder Surgery Colonoscopy - MAC (01/28/17) EGD - MAC (12/20/16) Ligation of fallopian tube Repair bladder injury, simple Social History/Home Situation: Leticia lives alone in a private apartment. She has a caregiver who comes in daily 5 days per week for 2 hours each time to assist with laundry, minor house chores, and grocery shopping. Patient is inde pendent with MRADLs using a straight cane. She has a walker which she states she does not use often. She receives meals on wheels. She no longer drives. Current Functional Limitations: Need for an assistive device for all transfer and ambulation task performance due to unsteadiness and frequent falls Equipment Owned/DME: FWW, [place], misha beaver Subjective: Patient is agreeable to a PT consult and treatment today despite report of fatigue and having a restless night. OT and charge nurse were present during the initial part of PT evaluation. Patient states that she has recently been discharged from a long-term facility but ended up being here due to above chief complaints. She reports pain in her low back area more pronounced on the right side. Objective: General Observation: Patient seen resting in bed. Telemetry monitoring in place. Lopez catheter in place. IV in the left UE. Bilateral TEDS. Grade 1 non-pitting edema on the right foot. Diarrhea episode x1 during PT evaluation. Mental Status: Alert and oriented as to person and place Pain: Reports discomfort on her low back area with the right more affected than the left ROM: Right Lower Extremity: Hip flexion 0-100. Hip abduction WFL. Knee flexion WFL. Ankle dorsiflexion WFL. Ankle plantarflexion WFL. Left Lower Extremity: Hip flexion 0-110. Hip abduction WFL. Knee flexion WFL. Ankle dorsiflexion WFL. Ankle plantarflexion WFL. Strength: Right Lower Extremity: Hip flexors 3-/5. Hip abductors 3+/5. Knee flexors 3/5. Knee extensors 3/5. Ankle dorsiflexors 4-/5. Ankle plantarflexors 4-/5. Left Lower Extremity:Hip flexors 3-/5. Hip abductors 4-/5. Knee flexors 4-/5. Knee extensors 4-/5. Ankle dorsiflexors 4/5. Ankle plantarflexors 4/5. Sensation: Intact as to pain and pressure on bilateral lower extremities. Bed Mobility/Transfers: Rolling SBA Supine to sit SBA Sit to supine SBA Sit to stand SBA Stand to sit SBA Bed to chair SBA Chair to bed SBA Gait: Patient tolerated level surface in room ambulation of 10 feet to transfer to the bedside commode and 30 feet to walk around patient's ICU bed and back using front wheeled walker with CGA assist and IV pole management of charge nurse. Patient reports fatigue and discomfort on low back area that subsided with rest. Good good Balance: Static Sitting: Good Dynamic Sitting: Good Static Standing: Fair Dynamic Standing: Fair Special Tests: Mobility Limitations Standardized Measure [facility]-PAC 6 clicks Basic Mobility Inpatient Short Form: Raw Score: 17 CMS Score: 51% deficit 4-stage balance Test: Able to maintain feet together for 5 minutes but unable to do so with semi-tandem, tandem, and one-legged stance. Patient is at high risk for falls. Informed Consent/Education: Patient instructed in purpose of PT consult and plan of care. Assessment: Patient is a 73-year-old female with diagnosis of dyspnea, tachycardia, hypertension, and toe abuse, lactic acidosis, and hypomagnesemia. Patient also has known and reported multiple falls [employer]. Patient appears to be not fully able to thrive at home despite current caregiver support with ADL performance. Furthermore, patient presents with clinical signs and symptoms consistent with current/admitting diagnoses that have resulted to mobility limitations, gait instability, generalized weakness, and impairment of motor control as demonstrated by the following impairment level findings: 1. Decreased strength to B LE major muscle groups with R more affected than the L 6 2 moderate 2. Impaired sitting/standing balance 3. Impaired activity tolerance 4. Edema to R foot , grade 1 Impairments are contributing to the following functional limitations: 1. Dependent bed mobility skills 2. Increased dependence with transfers 3. Inability to safely ambulate without assistive device and physical assistance 4. Increase completion time for mobility ADL performance 5. Increased fall risk 6. Inability to negotiate steps alone safely Patient is assessed as a 53063 moderate complexity based on the following: History: Patient is a 73-year-old female with support service in place now with diagnosis of dyspnea, tachycardia, hypertension, and toe abuse, lactic acidosis, and hypomagnesemia Examination: Demonstrable impairment in strength, balance, and range of motion with underlying impairments and functional limitations as documented above Presentation:Evolving Decision Makin moderate complexity Goals: Goals X1 week 1. Supine-Sit independent 2. Sit-Supine independent 3. Sit-Stand independent 4. Stand-Sit independent 5. Bed-Chair independent 6. Chair-Bed independent 7. Independent gait on level surface with use of least restrictive device for at least 300 feet without report of pain nor dyspnea 8. Independent stair negotiation while holding onto bilateral rails for at least 5 steps without report of pain nor dyspnea 9. Good static and dynamic standing balance/tolerance Plan of Care/Treatment Plan: 1-2x/day, 7 days/week x 1 week. Plan of care has been reviewed with the COMMERCIAL [employer]S PROFESSIONAL providing the service under Physical Therapy direction. Initiate Physical Therapy intervention for strengthening, bed mobility, transfers, gait, stairs, balance training, and use of assistive device. DISCHARGE RECOMMENDATIONS: Patient will benefit from long-term facility placement in order to progress mobility level, strength, and balance with potential for long-term placement due to frequent falls and inability to thrive satisfactorily at home despite existing support services. TREATMENT CODE/TIME: 96111 x 23 minutes beginning at 9:56 AM. Thank you very much for this referral. Tawana Cruz PT, DPT, CLT [facility]
[2019-04-14] VITALS (16 sets, daily range): BP systolic 133–170; BP diastolic 73–99; PULSE 80–107; RESP 14–28; TEMP 36.4–37; O2SAT 94–97
[2019-04-14] MEDS: Acetaminophen 500 MG TAB 1000 MG PO ×2 (06:18→14:21)
[2019-04-14 06:52] LABS: HCT 34.3 % (36.0-46.0); HGB 10.6 g/dL (12.0-15.5); Mean Corp. HGB Concentration 30.9 g/dL (32.0-36.0); Mean Corpuscular Hemoglobin 30.4 pg (27.0-33.0); Mean Corpuscular Volume 98.3 fL (80-95); Mean Platelet Volume 9.3 fL (8.0-11.0); Platelet Count 358 x1000/uL (130-400); RBC 3.49 m/cumm (4.00-5.20); RBC Distribution Width 18.5 % (11.7-14.6); White Blood Cell Count 5.74 k/cumm (4.4-10.8)
[2019-04-14 07:06] LABS: Anion Gap 8.5 mmol/L (3-11); BUN 14 mg/dL (7-18); CO2 25.5 mmol/L (21.0-32.0); CREATININE 0.86 mg/dL (0.55-1.02); Calcium 9.7 mg/dL (8.5-10.1); Chloride 103 mmol/L (98-107); Glucose 116 mg/dL (70-100); Magnesium 1.6 mg/dL (1.8-2.4); Potassium 4.3 mmol/L (3.5-5.1); Sodium 137 mmol/L (136-145)
[2019-04-14] MEDS: Pantoprazole 40 MG TABCR PO (07:42)
[2019-04-14] MEDS: Lidocaine 5% Patch 1 PATCH TP (07:42)
[2019-04-14] MEDS: Normal Saline Flush 10 ML SYR IVP ×3 (08:41→21:34)
[2019-04-14] MEDS: MAGNESIUM SULFATE 2 GM/50 ML BAG IVPB (08:41)
[2019-04-14] MEDS: Thiamine 100 MG TAB PO (08:56)
[2019-04-14] MEDS: Gabapentin 300 MG CAP PO ×3 (08:56→19:43)
[2019-04-14] MEDS: Venlafaxine 150 MG CAPCR PO (08:56)
[2019-04-14] MEDS: amLODIPine 10 MG TAB PO (08:56)
[2019-04-14] MEDS: Folic Acid 1 MG TAB PO (08:56)
[2019-04-14] MEDS: Magnesium Oxide 400 MG TAB PO ×2 (08:57→19:43)
[2019-04-14] MEDS: chlordiazePOXIDE 25 MG CAP PO (08:57)
[2019-04-14] MEDS: Multivitamin w/Minerals TAB 1 TAB PO (08:57)
[2019-04-14] MEDS: Docusate Sodium 100 MG CAP PO ×2 (08:59→19:43)
--- NOTE | 2019-04-14 10:54 | W.PM.PROGNOT ---
Date of Service Date of service: 04/14/19 Time of Service: 10:54 Assessment and Plan (1) Alcohol abuse: Current visit: No Status: Chronic Currently showing no signs of withdrawl. No tremors noted, mental status appropriate, and patient is oriented X3 and without diaphoresis or hallucinations. Underlying hypertension and tachycardia very likely related to lack of medications (see below). Of note, patient also did not have signs of withdrawl during multiple prior hospitalizations. Continue to maintained on CIWA protoco, but begin to wean Chlordiazepoxide. Has previously declined offers for multiple different strategies aimed at assisting her at home and as an outpatient in the past. Has also been dropped by Home Health Services due to intoxication during visits, limiting their ability to effectively help. Discussed importance of abstinence in detail with patient on prior occasions. (2) Hypertension: Current visit: Yes Status: Chronic Appearance of significant hypertension and tachycardia at time of admission currently and in the past. Of note, Mrs. Ingram has a significant prior history of hypertension, previously on combination of medications that included CCB, Spironolactone, BB, and ARB, currently maintained on thiazide therapy only. Presenting hypertension may be related to medication noncompliance at home, and tachycardia related to lack of BB therapy, in addition to initial dehydration in setting of likely EtOH use. Continue CCB, change prn clonidine to IV lopressor, and initiate BB therapy. Plans on restarting home thiazide soon. Pharmacy currently checking into patient's current medications and use at home. Monitor. (3) Tachycardia: Current visit: Yes Status: Acute As above. (4) Multiple rib fractures: Current visit: No Status: Acute History of numerous falls with Rib fractures, occuring in setting of EtOH abuse and intoxication. Recent hospitalization at [facility] with evidence of fractures and associated hemothorax, s/p Chest Tube placement. Current imaging with decrease in size of pleural effusion and basilar atelectasis. Ensure physical therapy, continue Gabapentin, Topical Lidocaine, and Robaxin. Discontinue NSAID therapy given history of gastritis, and start low dose Tramadol. (5) Pleural effusion on left: Current visit: No Status: Chronic Recent hemothorax requiring Chest Tube placement. Findings appear improved. Continue to monitor. (6) GERD (gastroesophageal reflux disease): Current visit: No Status: Chronic Continue daily PPI therapy. (7) DVT prophylaxis: Current visit: Yes Status: Acute Continue SCDs and TEDs. Continue to hold off chemical prophylaxis given recent hemothorax. (8) Advance directive on file: Current visit: Yes Status: Acute Full Code. Subjective Interval history since last seen: 73-year-old woman with a history of chronic alcoholism and frequent falls while inebriated, with a recent development of a hemothorax requiring hospitalization and chest tube placement, admitted from [facility] Emergency Department 04/11 with concern regarding acute alcohol withdrawl . Ms. Ingram has a Past Medical History significant for EtOH abuse with frequent falls while intoxicated, HTN, GERD, prior GIB and Gastritis, as well as a history of alcoholic pancreatitis. She has been seen in the ED on multiple occasions after falls, and was hospitalized here with rib fractures in the past. She was apparently hospitalized at [facility] between 03/11 and 03/21 with rib fractures and hemothorax, requiring placement of a chest tube. Prior to previous hospitalizations she has also been noted to be significantly hypertensive and tachycardic. Following her admission at [facility] she was sent to SNF at [facility], and then discharged home. She presented to the ED 2 days later with acute complaints of SOB, nausea, and vomiting. She was found to be anxious, and again hypertensive and tachycardic. Her work-up was essentially negative. The patient was referred for admission due to concern for possible Alcohol Withdrawl. Following admission the patient has been maintained on CIWA protocol but showing very little signs of withdrawl and not receiving Lorazepam. Her HR remains mostly in the 90's, and blood pressure appears improved. Of note, review of patient's records indicates prior treatment with BB therapy, as well as CCB, ARB, and Spironolactone. Also known to have medication noncompliance in the past - along with dehydration potential explanation for her presenting symptoms of elevated blood pressure and HR. No overnight events reported. Remains afebrile. Exam Narrative Exam Narrative: General: Patient appears comfortable, AAOX3, NAD Neck: Supple CV: Regular, borderline tachycardic, S1S2. Pulmonary: Bibasilar crackles Abdomen: + Bowel Sounds, soft, nontender, nondistended Vascular: No lower extremity edema Psych: Normal mood and affect. Objective Objective Clinical Data: Abnormal lab results 04/14/19 04/14/19 Range/Units 06:11 06:11 RBC 3.49 L (4.00-5.20) m/cumm Hgb 10.6 L (12.0-15.5) g/dL Hct 34.3 L (36.0-46.0) % MCV 98.3 H (80-95) fL MCHC 30.9 L (32.0-36.0) g/dL RDW 18.5 H (11.7-14.6) % Glucose 116 H (70-100) mg/dL Magnesium 1.6 L (1.8-2.4) mg/dL Vital Signs Temperature 36.5 C 04/14/19 07:57 Temperature Source Temporal Artery Scan 04/14/19 07:57 Pulse 94 H 04/14/19 08:01 Pulse Rhythm Regular 04/14/19 07:57 Pulse 95 H 04/14/19 08:01 Respiratory Rate 18 04/14/19 08:01 Respiratory Effort 04/14/19 07:57 Respiratory Depth Normal 04/14/19 07:57 Respiratory Pattern Normal 04/14/19 07:57 Blood Pressure 155/85 H 04/14/19 08:01 Blood Pressure Mean 103 04/14/19 08:01 Blood Pressure Position Supine 04/13/19 16:00 Pulse Oximetry 94 L 04/14/19 08:01 Oxygen Delivery Method Room Air 04/14/19 07:57 Oxygen Flow Rate 0 04/14/19 07:57 Pain Level 7 04/14/19 07:57 Comment 04/14/19 07:57 Intake & Output 04/13/19 04/13/19 04/14/19 11:59 23:59 11:59 Intake Total 1780 / 3716.667 1936.667 / 3716.667 600 / 600 Output Total 300 / 1225 925 / 1225 1100 / 1100 Balance 1480 / 2491.667 1011.667 / 2491.667 -500 / -500 Weight 64.1 kg Intake: IV 20 / 516.667 496.667 / 516.667 Oral 1760 / 3200 1440 / 3200 600 / 600 Output: Urine 300 / 1225 925 / 1225 1100 / 1100 Other: Urine Color Yellow Yellow Yellow Urine Appearance Clear Clear Clear Comment Lopez in place Leg strap in place Pt up to commode, complaining that the catheter is buring her. Performed rafal/cath care. adjusted tubing and reattached to thigh belt. no further complaints. Stool Occult Blood Negative Negative Negative Stool Size Moderate Small Moderate Stool Characteristics Soft Soft Soft Formed Brown Formed Laboratory Results WBC 5.74 k/cumm (4.4-10.8) 04/14/19 06:11 RBC 3.49 m/cumm (4.00-5.20) L 04/14/19 06:11 Hgb 10.6 g/dL (12.0-15.5) L 04/14/19 06:11 Hct 34.3 % (36.0-46.0) L 04/14/19 06:11 MCV 98.3 fL (80-95) H 04/14/19 06:11 MCH 30.4 pg (27.0-33.0) 04/14/19 06:11 MCHC 30.9 g/dL (32.0-36.0) L 04/14/19 06:11 RDW 18.5 % (11.7-14.6) H 04/14/19 06:11 Plt Count 358 x1000/uL (130-400) 04/14/19 06:11 MPV 9.3 fL (8.0-11.0) 04/14/19 06:11 Immature Gran % 0.1 04/13/19 06:15 69.2 04/13/19 06:15 20.2 04/13/19 06:15 7.5 04/13/19 06:15 2.7 04/13/19 06:15 0.3 04/13/19 06:15 Absolute Neutrophils 4.80 k/cumm (1.2-6.7) 04/13/19 06:15 Absolute Lymphocytes 1.40 k/cumm (1.2-3.4) 04/13/19 06:15 Absolute Monocytes 0.52 k/cumm (0.11-0.7) 04/13/19 06:15 Absolute Eosinophils 0.19 k/cumm (0.0-0.7) 04/13/19 06:15 Absolute Basophils 0.02 k/cumm (0.0-0.2) 04/13/19 06:15 Rbc morph reviewed 04/11/19 10:55 RBC Morphology See below 04/11/19 10:55 Present 04/11/19 10:55 2+ 04/11/19 10:55 2+ 04/11/19 10:55 2+ 04/11/19 10:55 PT 9.8 sec (9.3-11.0) 04/11/19 10:55 INR 1.0 (0.9-1.1) 04/11/19 10:55 APTT 21.8 sec (21.0-31.4) 04/11/19 10:55 4716 ng/mlFEU (<500) H 04/11/19 10:55 Sodium 137 mmol/L (136-145) 04/14/19 06:11 Potassium 4.3 mmol/L (3.5-5.1) 04/14/19 06:11 Chloride 103 mmol/L (98-107) 04/14/19 06:11 Carbon Dioxide 25.5 mmol/L (21.0-32.0) 04/14/19 06:11 8.5 mmol/L (3-11) 04/14/19 06:11 BUN 14 mg/dL (7-18) 04/14/19 06:11 0.86 mg/dL (0.55-1.02) 04/14/19 06:11 >= 60.00 (mL/min/1.73m2) 04/14/19 06:11 Glucose 116 mg/dL (70-100) H 04/14/19 06:11 1.1 mmol/L (0.6-1.4) 04/11/19 20:30 Calcium 9.7 mg/dL (8.5-10.1) 04/14/19 06:11 Magnesium 1.6 mg/dL (1.8-2.4) L 04/14/19 06:11 1.0 mg/dL (0.2-1.0) 04/12/19 06:35 AST 26 U/L (15-37) 04/12/19 06:35 ALT 31 U/L (12-78) 04/12/19 06:35 178 U/L (46-116) H 04/12/19 06:35 14 umol/L (11-32) 04/11/19 11:50 < 0.05 ng/mL (0.00-0.06) 04/11/19 10:55 NT-Pro-B Natriuret Pep 304 pg/mL (-299) H 04/11/19 10:55 7.2 g/dL (6.4-8.2) 04/12/19 06:35 3.1 g/dL (3.4-5.0) L 04/12/19 06:35 104 U/L (73-393) 04/11/19 10:55 TSH 0.40 uIU/mL (0.36-3.74) 04/12/19 06:35 Free T4 1.32 ng/dL (0.76-1.46) 04/12/19 06:35 Yellow (Yellow) 04/11/19 14:49 Clear (Clear) 04/11/19 14:49 7.0 (5-8) 04/11/19 14:49 Ur Specific [place] 1.015 (1.005-1.025) 04/11/19 14:49 >=300 mg/dL (Negative) H 04/11/19 14:49 40 mg/dL (Negative) H 04/11/19 14:49 Trace-lysed (Negative) H 04/11/19 14:49 Negative (Negative) 04/11/19 14:49 Negative (Negative) 04/11/19 14:49 0.2 EU/dL (Up TO 0.2) 04/11/19 14:49 Ur Leukocyte Esterase Negative (Negative) 04/11/19 14:49 Negative (0-2) 04/11/19 14:49 5-10 HPF (0-5) 04/11/19 14:49 Ur Epithelial Cells Negative HPF (Negative) 04/11/19 14:49 Negative HPF (Negative) 04/11/19 14:49 Many HPF (Negative) 04/11/19 14:49 Negative LPF (Negative) 04/11/19 14:49 Negative (Negative) 04/11/19 14:49 Few renal (Negative) 04/11/19 14:49 Ur Culture Indicated? Yes 04/11/19 14:49 100 mg/dL (Negative) 04/11/19 14:49 Negative (Negative) 04/11/19 14:49 Negative (Negative) 04/11/19 14:49 Ur Barbiturates Screen Negative (Negative) 04/11/19 14:49 Ur Tricyclics Screen Negative (Negative) 04/11/19 14:49 Ur Amphetamines Screen Negative (Negative) 04/11/19 14:49 U Benzodiazepines Scrn Negative (Negative) 04/11/19 14:49 Negative (Negative) 04/11/19 14:49 Ur THC Screen Negative (Negative) 04/11/19 14:49 Ethyl Alcohol 3.3 mg/dL (<3) 04/11/19 10:55
--- NOTE | 2019-04-14 11:00 | PT.INTREAT ---
Date of service: 04/14/19 Time of Service: 11:00 PT Notes 04/14/19 SUBJECTIVE: Leticia stating she is tired today. She notes she utilizes her cane mostly at home due to narrow door ways and her walker is hard to manage. OBJECTIVE: Supine in bed. Agreeable to PT. TRANSFERS Supine to Sit: Min A Sit to supine: Min A Sit to stand: SBA Stand to sit: SBA GAIT Device: FWW Weight bearing: Full Assist: CGA Distance: 80' Deviation: Slow cautious gait pattern ASSESSMENT: Tolerates PT well. She does note feeling wobbly with gait although does not demonstrate LOB or gait deviations. PLAN: Continue current POC progressing gait distance as she is able to tolerate. Direct time: 15 minutes [id number] Total time: 15 minutes Odette Saul PTA Clinic location: [facility] [place], [place]
--- NOTE | 2019-04-14 12:58 | PDOC.CMPRO ---
Care Management Progress Note S/O: Leticia was up and ambulating with a walker with PT. Alert and engaged readily in conversation. Stated she would like to make contact with a assistant women's soccer coach. Lien Collins is glass production machine operator today and agreed to come in to make initial contact. A: 73 y.o. female admitted for tachycardia and Hypertension. P: Leticia will return home and resume her current MOW and private caregiver services. RCT to transport.
--- NOTE | 2019-04-14 14:59 | NUR.NOTE ---
Nursing Note: Pt to MS floor from ICU at 1258. Report received from Elisa RN and Montserrat RN; ICU nurses. Telemetry; SR. A&Ox3, VSS. Pt ambulated with walker and standby from ICU to room 228. Pt oriented to MS floor; call bailey within reach. RN will continue to monitor.
[2019-04-14] MEDS: traMADol 50 MG TAB PO (16:26)
--- NOTE | 2019-04-14 16:34 | NUR.NOTE ---
Nursing Note: At 1615, RN alerted to pt fall in room. Per pt, she was getting up to go to the toilet from the bed, did not realize she had her SCDs on, and fell next to the bed and the door. Per pt, she hit her head, her knees and her right hand. Pt did not lose consciousness. Pt c/o knee pain, right hand pain, and head pain. Small bump to forehead. No other signs of trauma noted. [employer] SPECIALIST Kavita alerted, assessed pt at bedside. CT scan of head ordered. VSS; 36.6T, 102P, 139/76BP, 20R, 96 O2 RA. Pain 8/10. Pain medications administered. RN will continue to monitor.
--- NOTE | 2019-04-14 16:59 | DI.COMBO_ITS ---
SYMPTOM/DIAGNOSIS: FELL, HIT HEAD, PAIN NONCONTRAST HEAD CT: A noncontrast cranial CT was performed. There is moderate generalized cerebral atrophy. There is no evidence of acute intracranial hemorrhage, mass effect or midline shift. The orbital and temporal bone structures appear intact. Note is made of opacification of a couple of ethmoid air cells. Otherwise the paranasal sinuses appear well aerated. CONCLUSION: No evidence of acute intracranial process. RIGHT HAND: Three views were obtained. There is a moderately displaced fracture of the base of the proximal phalanx of the index finger. Deformity of the distal aspect of the fifth metacarpal is noted, probably unchanged from 01/17/19 and probably representing a healed fracture. Correlation is requested regarding any acute injury to the head of the fifth metacarpal.
--- NOTE | 2019-04-14 17:28 | DI.VRAD_ITS ---
EXAM: XR Right Hand EXAM DATE/TIME: 04/14/2019 5:00 PM CLINICAL HISTORY: 73 years old, female; Other: Fall TECHNIQUE: Imaging protocol: XR Right hand. Views: 3 or more views. COMPARISON: CR XR hand RT complete 17/01/2019 06:48 FINDINGS: Bones/joints: Osteoporotic. Possible fifth distal metacarpal fracture. Fracture of the proximal second phalanx. Possible fracture second middle phalanx shaft. Degenerative changes of the first, second, and third DIP joints. Soft tissues: Soft tissue swelling second digit. IMPRESSION: Intra-articular fracture right second proximal phalanx and possible second middle phalanx fracture. Possible fifth metacarpal fracture. Dictated and Authenticated by: Elizabeth Granger MD. Ordering:NATHEN Jones MD
--- NOTE | 2019-04-14 17:36 | DI.VRAD_ITS ---
EXAM: CT Head Without Contrast EXAM DATE/TIME: 04/14/2019 4:25 PM CLINICAL HISTORY: 73 years old, female; Other: Fall TECHNIQUE: Imaging protocol: Computed tomography images of the head without contrast. Coronal and sagittal reformatted images were created and reviewed. COMPARISON: CT HEAD CERVICAL SPINE WO 11/03/2019 07:43 FINDINGS: Brain: No evidence for acute hemorrhage or infarct. Ventricles: Stable ventriculomegaly. Bones/joints: Unremarkable. No acute fracture. Sinuses: Ethmoid sinus disease. Mastoid air cells: Visualized mastoid air cells are well aerated. No mastoid effusion. Soft tissues: Unremarkable. Vasculature: Calcified right vertebral artery. IMPRESSION: 1. No acute intracranial abnormality. 2. Ethmoid sinus disease. Dictated and Authenticated by: Elizabeth Granger MD. Ordering:CAROL Stewart MD
[2019-04-14] MEDS: Metoprolol 50 MG TAB PO (19:43)
[2019-04-14] MEDS: Senna TAB 1 TAB PO (19:43)
[2019-04-14] MEDS: MORPHine 2 MG/ML SYR 1 MG IVP (21:33)
[2019-04-15] VITALS (8 sets, daily range): BP systolic 134–163; BP diastolic 78–94; PULSE 83–98; RESP 18–19; TEMP 36.6–37; O2SAT 94–97
[2019-04-15 06:57] LABS: Abs Immature Grans 0.02 k/cumm (0.0-0.09); Absolute Basophil Count 0.02 k/cumm (0.0-0.2); Absolute Eosinophil Count 0.33 k/cumm (0.0-0.7); Absolute Lymphocyte Count 1.23 k/cumm (1.2-3.4); Absolute Monocyte Count 0.39 k/cumm (0.11-0.7); Absolute Neutrophil Count 4.04 k/cumm (1.2-6.7); Basophils % 0.3; Eosinophils % 5.5; HCT 33.7 % (36.0-46.0); HGB 10.4 g/dL (12.0-15.5); Immature Grans % 0.3; Lymphocytes % 20.4; Mean Corp. HGB Concentration 30.9 g/dL (32.0-36.0); Mean Corpuscular Hemoglobin 30.6 pg (27.0-33.0); Mean Corpuscular Volume 99.1 fL (80-95); Mean Platelet Volume 9.2 fL (8.0-11.0); Monocytes % 6.5; Platelet Count 385 x1000/uL (130-400); RBC Distribution Width 18.7 % (11.7-14.6); White Blood Cell Count 6.03 k/cumm (4.4-10.8)
[2019-04-15 07:04] LABS: Anion Gap 7.9 mmol/L (3-11); BUN 14 mg/dL (7-18); CO2 28.1 mmol/L (21.0-32.0); CREATININE 1.04 mg/dL (0.55-1.02); Calcium 9.9 mg/dL (8.5-10.1); Chloride 103 mmol/L (98-107); Estimated GFR 52.09 (mL/min/1.73m2); Glucose 111 mg/dL (70-100); Potassium 4.3 mmol/L (3.5-5.1); Sodium 139 mmol/L (136-145)
[2019-04-15] MEDS: Senna TAB 1 TAB PO ×2 (08:12→19:49)
[2019-04-15] MEDS: Folic Acid 1 MG TAB PO (08:12)
[2019-04-15] MEDS: amLODIPine 10 MG TAB PO (08:12)
[2019-04-15] MEDS: Venlafaxine 150 MG CAPCR PO (08:12)
[2019-04-15] MEDS: Metoprolol 50 MG TAB PO ×2 (08:12→19:49)
[2019-04-15] MEDS: Lidocaine 5% Patch 1 PATCH TP (08:13)
[2019-04-15] MEDS: Multivitamin w/Minerals TAB 1 TAB PO (08:13)
[2019-04-15] MEDS: Pantoprazole 40 MG TABCR PO (08:13)
[2019-04-15] MEDS: Magnesium Oxide 400 MG TAB PO ×2 (08:13→19:49)
[2019-04-15] MEDS: Docusate Sodium 100 MG CAP PO ×2 (08:13→19:49)
[2019-04-15] MEDS: Thiamine 100 MG TAB PO (08:13)
[2019-04-15] MEDS: Gabapentin 300 MG CAP PO ×3 (08:13→19:49)
[2019-04-15] MEDS: traMADol 50 MG TAB PO ×3 (08:32→19:48)
--- NOTE | 2019-04-15 08:47 | OCONE_ITS ---
Date of service: 04/15/19 Time of Service: 08:48 History of Present Illness Chief Complaint: Fracture index finger right hand Narrative: This patient is a 73-year-old white female with a chronic history of alcoholism. She was admitted for detoxification approximately 4 days of etoh and was admitted to ICU as an overflow bed patient. She was returned to the [facility] yesterday afternoon and tripped over her SCD tubing injuring her dominant right hand x-ray showed a incomplete nondisplaced fracture of the midportion of the proximal phalanx of her index finger the radiologist also felt that she had another fracture but I believe that she has had a previous fracture of her index finger which has healed she is complaining today mainly thumb pain and minimal fracture pain at the index finger. I have her in a wrist splint in the index middle fingers kaitlin taped Consults Consult date: 04/15/19 Assessment and Plan (1) Fracture of phalanx of right index finger: Current visit: Yes Status: Acute In addition to the incomplete fracture of the index finger right hand proximal phalanx the patient has a sprain ulnar collateral ligament to the thumb both conditions could be managed with a wrist immobilizer with kaitlin taping of the index and middle fingers together. I explained this is a patient but I am not sure she has a good understanding of it. We will continue to follow her she should follow-up with orthopedics in 2 weeks for probable repeat radiographs prognosis is good and I think the ulnar collateral ligament does not require any type of surgical intervention [facility] Medical History (Updated 04/15/19 @ 08:53 by Maximilian Villarreal MD) Alcohol abuse (Chronic) Alcoholic ketosis (Resolved) Allergic rhinitis (Chronic) Anemia (Chronic 12/20/16) Back pain, chronic (Chronic) Cataract (Chronic 11/07/15) Cervical radicular pain (Chronic) Chronic alcoholic gastritis (Chronic 10/12/17) Depression (Chronic) Elev transaminase/LDH (Chronic) Falling (Chronic) Genital herpes simplex (Chronic) GERD (gastroesophageal reflux disease) (Chronic) GI bleed (Chronic 12/20/16) Headache (Chronic) Hyperlipidemia (Chronic) Hypertension (Chronic) Macrocytosis (Chronic 09/26/14) Multiple rib fractures (Acute) Non-cardiac chest pain (Chronic 09/21/16) Osteoarthritis (Chronic) Osteopenia (Chronic) 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) Pleural effusion on left (Chronic) Right rib fracture (Resolved) Sciatica (Chronic) Tubular adenoma of colon (Chronic 01/28/17) Urinary incontinence (Chronic) Wernicke encephalopathy (Chronic) Surgical History Bladder Surgery Colonoscopy - MAC (01/28/17) EGD - MAC (12/20/16) Ligation of fallopian tube Repair bladder injury, simple Social History Smoking/Tobacco Use Status: Former Tobacco Use Alcohol Intake: former Drug use: Never Details: Do you feel safe at home: Yes Additional Social history: my caregiver is an anxiety attack person Exam Extrem Other: Patient has very mild swelling over the proximal phalanx of her right index finger. Stressing the bone causes minimal to little discomfort. Overall alignment is satisfactory. She is tender over the ulnar collateral ligament to her right thumb and I suspect that she sprained this in the course of the fall. Results Last Vital Signs Temp 98.6 F 04/15/19 08:40 Pulse 88 04/15/19 08:40 Resp 18 04/15/19 08:40 BP 163/94 H 04/15/19 08:40 Pulse Ox 96 04/15/19 08:40 Labs : 04/15/19 06:15 04/15/19 06:15 Laboratory Results - last 24 hr 04/15/19 04/15/19 06:15 06:15 WBC 6.03 RBC 3.40 L Hgb 10.4 L Hct 33.7 L MCV 99.1 H MCH 30.6 MCHC 30.9 L RDW 18.7 H Plt Count 385 MPV 9.2 Immature Gran % 0.3 Neutrophils % 67.0 Lymphocytes % 20.4 Monocytes % 6.5 Eosinophils % 5.5 Basophils % 0.3 Absolute Neutrophils 4.04 Absolute Lymphocytes 1.23 Absolute Monocytes 0.39 Absolute Eosinophils 0.33 Absolute Basophils 0.02 Sodium 139 Potassium 4.3 Chloride 103 Carbon Dioxide 28.1 Anion Gap 7.9 BUN 14 Creatinine 1.04 H Estimated GFR/1.73 m2 52.09 Glucose 111 H Calcium 9.9 Magnesium 2.0
--- NOTE | 2019-04-15 10:42 | PT.INTREAT ---
Date of service: 04/15/19 Time of Service: 10:42 PT Notes 04/15/19 SUBJECTIVE: Leticia stating her thumb is sore from falling yesterday. She knows she needs to get stronger to go home. OBJECTIVE: Supine in bed. Agreeable to PT. TRANSFERS supine to sit: SBA SIt to stand: SBA Stand to sit: SBA GAIT Device: FWW Weight bearing: Full Assist: CGA Distance: 120' Deviation: Walker management. THEREX: Squats x 5, LAQ x 10, SLR x 5 each ASSESSMENT: Pt able to increase gait distance today although with path deviations and she tends to run into furniture in the halls. No LOB throughout. PLAN: Continue current POC. Treatment time: 20 minutes [id number] Odette Saul PTA Clinic location: [facility] [place], [place]
--- NOTE | 2019-04-15 10:53 | PGE_ITS ---
Date of Service Date of service: 04/15/19 Time of Service: 10:54 Assessment and Plan (1) Alcohol abuse: Current visit: No Status: Chronic Currently showing no signs of withdrawl. No tremors noted, mental status appropriate, and patient is oriented X3 and without diaphoresis or hallucinations. Underlying hypertension and tachycardia very likely related to lack of medications (see below). Of note, patient also did not show any signs of withdrawl during multiple prior hospitalizations. Continue to maintained on CIWA protoco, but continue to wean Chlordiazepoxide. Has previously declined offers for multiple different strategies aimed at assisting her at home and as an outpatient in the past. Has also been dropped by Home Health Services due to intoxication during visits, limiting their ability to effectively help. Discussed importance of abstinence in detail with patient on prior occasions. (2) Hypertension: Current visit: Yes Status: Chronic Appearance of significant hypertension and tachycardia at time of admission currently and in the past. Of note, Mrs. Ingram has a significant prior history of hypertension, previously on combination of medications that included CCB, Spironolactone, BB, and ARB, currently maintained on thiazide therapy only. Presenting hypertension may be related to medication noncompliance at home, and tachycardia related to lack of BB therapy, in addition to initial dehydration in setting of likely EtOH use. Continue CCB, changed prn clonidine to IV lopressor, and initiated BB therapy. Plans on restarting home thiazide soon as well. Monitor. (3) Tachycardia: Current visit: Yes Status: Acute As above. (4) Multiple rib fractures: Current visit: No Status: Acute History of numerous falls with Rib fractures, occuring in setting of EtOH abuse and intoxication. Recent hospitalization at [facility] with evidence of fractures and associated hemothorax, s/p Chest Tube placement. Current imaging with decrease in size of pleural effusion and basilar atelectasis. Ensure physical therapy, continue Gabapentin, Topical Lidocaine, and Robaxin. Discontinued NSAID therapy given history of gastritis, and started low dose Tramadol. (5) Hand fracture: Current visit: Yes Status: Acute Mechanical fall with resultant fracture - has undergone evaluation by Ortho, with recommendations for maintaining patient on a wrist immobilizer with kaitlin taping of the index and middle fingers for approximately 2 weeks. (6) Pleural effusion on left: Current visit: No Status: Chronic Recent hemothorax requiring Chest Tube placement. Findings appear improved. Continue to monitor. (7) GERD (gastroesophageal reflux disease): Current visit: No Status: Chronic Continue daily PPI therapy. (8) DVT prophylaxis: Current visit: Yes Status: Acute Continue SCDs and TEDs. Continue to hold off chemical prophylaxis given recent hemothorax. (9) Advance directive on file: Current visit: Yes Status: Acute Full Code. Subjective Interval history since last seen: 73-year-old woman with a history of chronic alcoholism and frequent falls while inebriated, with a recent development of a hemothorax requiring hospitalization and chest tube placement, admitted from [facility] Emergency Department 04/11 with concern regarding acute alcohol withdrawl . Ms. Ingram has a Past Medical History significant for EtOH abuse with frequent falls while intoxicated, HTN, GERD, prior GIB and Gastritis, as well as a history of alcoholic pancreatitis. She has been seen in the ED on multiple occasions after falls, and was hospitalized here with rib fractures in the past. She was apparently hospitalized at [facility] between 03/11 and 03/21 with rib fractures and hemothorax, requiring placement of a chest tube. Prior to previous hospitalizations she has also been noted to be significantly hypertensive and tachycardic. Following her admission at [facility] she was sent to SNF at [facility], and then discharged home. She presented to the ED 2 days later with acute complaints of SOB, nausea, and vomiting. She was found to be anxious, and again hypertensive and tachycardic. Her work-up was essentially negative. The patient was referred for admission due to concern for possible Alcohol Withdrawl. Following admission the patient has been maintained on CIWA protocol but showing very little signs of withdrawl and not receiving Lorazepam. Her HR had remained mostly in the 90's prior to reinitiation of BB therapy, and blood pressure appears improved as well. Of note, review of patient's records indicates prior treatment with BB therapy, as well as CCB, ARB, and Spironolactone. Also known to have medication noncompliance in the past - along with dehydration potential explanation for her presenting symptoms of elevated blood pressure and HR. Last night Mrs. Ingram suffered a mechanical fall, precipitated by attempting to ambulate while wearing her SCDs, and suffered a fracture of right 2nd digit and 5th metacarpal. Although she reported hitting her head CT imaging was negative for fracture or acute pathology. Remains afebrile. Exam Narrative Exam Narrative: General: Patient appears comfortable, AAOX3, NAD Neck: Supple CV: Regular, borderline tachycardic, S1S2. Pulmonary: Bibasilar crackles continued Abdomen: + Bowel Sounds, soft, nontender, nondistended Vascular: No lower extremity edema Psych: Normal mood and affect. Objective Objective Clinical Data: Abnormal lab results 04/15/19 04/15/19 Range/Units 06:15 06:15 RBC 3.40 L (4.00-5.20) m/cumm Hgb 10.4 L (12.0-15.5) g/dL Hct 33.7 L (36.0-46.0) % MCV 99.1 H (80-95) fL MCHC 30.9 L (32.0-36.0) g/dL RDW 18.7 H (11.7-14.6) % Creatinine 1.04 H (0.55-1.02) mg/dL Glucose 111 H (70-100) mg/dL Vital Signs Temperature 37 C 04/15/19 08:40 Temperature Source Temporal Artery Scan 04/15/19 08:40 Pulse 95 H 04/15/19 08:50 Pulse Rhythm Regular 04/15/19 08:23 Pulse 95 H 04/14/19 08:01 Respiratory Rate 18 04/15/19 08:40 Respiratory Effort Non-Labored 04/15/19 08:23 Respiratory Depth Normal 04/15/19 08:23 Respiratory Pattern Normal 04/15/19 08:23 Blood Pressure 163/94 H 04/15/19 08:40 Blood Pressure Mean 103 04/14/19 08:01 Blood Pressure Position Supine 04/13/19 16:00 Pulse Oximetry 96 04/15/19 08:40 Oxygen Delivery Method Room Air 04/15/19 08:40 Oxygen Flow Rate 0 04/15/19 08:40 Pain Level 5 04/15/19 08:40 Comment 04/14/19 16:38 Intake & Output 04/14/19 04/14/19 04/15/19 11:59 23:59 11:59 Intake Total 1219 / 1969 750 / 1970 680 / 680 Output Total 1100 / 1400 300 / 1400 300 / 300 Balance 120 / 570 450 / 570 380 / 380 Intake: IV 50 / 60 10 / 60 Oral 1170 / 1910 740 / 1910 680 / 680 Output: Urine 1100 / 1400 300 / 1400 300 / 300 Other: Urine Color Yellow Pale Yellow Yellow Urine Appearance Clear Clear Clear Urine Odor Normal None Comment Pt up to commode, complaining that the catheter is buring her. Performed rafal/cath care. adjusted tubing and reattached to thigh belt. no further complaints. Pt missed hat; no measurement. Denies sx. Stool Occult Blood Negative Stool Size Moderate Small Stool Characteristics Soft Soft Formed Formed Voiding Methods Diaper Toilet Incontinent Diaper Incontinent Laboratory Results WBC 6.03 k/cumm (4.4-10.8) 04/15/19 06:15 RBC 3.40 m/cumm (4.00-5.20) L 04/15/19 06:15 Hgb 10.4 g/dL (12.0-15.5) L 04/15/19 06:15 Hct 33.7 % (36.0-46.0) L 04/15/19 06:15 MCV 99.1 fL (80-95) H 04/15/19 06:15 MCH 30.6 pg (27.0-33.0) 04/15/19 06:15 MCHC 30.9 g/dL (32.0-36.0) L 04/15/19 06:15 RDW 18.7 % (11.7-14.6) H 04/15/19 06:15 Plt Count 385 x1000/uL (130-400) 04/15/19 06:15 MPV 9.2 fL (8.0-11.0) 04/15/19 06:15 Immature Gran % 0.3 04/15/19 06:15 67.0 04/15/19 06:15 20.4 04/15/19 06:15 6.5 04/15/19 06:15 5.5 04/15/19 06:15 0.3 04/15/19 06:15 Absolute Neutrophils 4.04 k/cumm (1.2-6.7) 04/15/19 06:15 Absolute Lymphocytes 1.23 k/cumm (1.2-3.4) 04/15/19 06:15 Absolute Monocytes 0.39 k/cumm (0.11-0.7) 04/15/19 06:15 Absolute Eosinophils 0.33 k/cumm (0.0-0.7) 04/15/19 06:15 Absolute Basophils 0.02 k/cumm (0.0-0.2) 04/15/19 06:15 Rbc morph reviewed 04/11/19 10:55 RBC Morphology See below 04/11/19 10:55 Present 04/11/19 10:55 2+ 04/11/19 10:55 2+ 04/11/19 10:55 2+ 04/11/19 10:55 PT 9.8 sec (9.3-11.0) 04/11/19 10:55 INR 1.0 (0.9-1.1) 04/11/19 10:55 APTT 21.8 sec (21.0-31.4) 04/11/19 10:55 4716 ng/mlFEU (<500) H 04/11/19 10:55 Sodium 139 mmol/L (136-145) 04/15/19 06:15 Potassium 4.3 mmol/L (3.5-5.1) 04/15/19 06:15 Chloride 103 mmol/L (98-107) 04/15/19 06:15 Carbon Dioxide 28.1 mmol/L (21.0-32.0) 04/15/19 06:15 7.9 mmol/L (3-11) 04/15/19 06:15 BUN 14 mg/dL (7-18) 04/15/19 06:15 1.04 mg/dL (0.55-1.02) H 04/15/19 06:15 52.09 (mL/min/1.73m2) 04/15/19 06:15 Glucose 111 mg/dL (70-100) H 04/15/19 06:15 1.1 mmol/L (0.6-1.4) 04/11/19 20:30 Calcium 9.9 mg/dL (8.5-10.1) 04/15/19 06:15 Magnesium 2.0 mg/dL (1.8-2.4) 04/15/19 06:15 1.0 mg/dL (0.2-1.0) 04/12/19 06:35 AST 26 U/L (15-37) 04/12/19 06:35 ALT 31 U/L (12-78) 04/12/19 06:35 178 U/L (46-116) H 04/12/19 06:35 14 umol/L (11-32) 04/11/19 11:50 < 0.05 ng/mL (0.00-0.06) 04/11/19 10:55 NT-Pro-B Natriuret Pep 304 pg/mL (-299) H 04/11/19 10:55 7.2 g/dL (6.4-8.2) 04/12/19 06:35 3.1 g/dL (3.4-5.0) L 04/12/19 06:35 104 U/L (73-393) 04/11/19 10:55 TSH 0.40 uIU/mL (0.36-3.74) 04/12/19 06:35 Free T4 1.32 ng/dL (0.76-1.46) 04/12/19 06:35 Yellow (Yellow) 04/11/19 14:49 Clear (Clear) 04/11/19 14:49 7.0 (5-8) 04/11/19 14:49 Ur Specific [place] 1.015 (1.005-1.025) 04/11/19 14:49 >=300 mg/dL (Negative) H 04/11/19 14:49 40 mg/dL (Negative) H 04/11/19 14:49 Trace-lysed (Negative) H 04/11/19 14:49 Negative (Negative) 04/11/19 14:49 Negative (Negative) 04/11/19 14:49 0.2 EU/dL (Up TO 0.2) 04/11/19 14:49 Ur Leukocyte Esterase Negative (Negative) 04/11/19 14:49 Negative (0-2) 04/11/19 14:49 5-10 HPF (0-5) 04/11/19 14:49 Ur Epithelial Cells Negative HPF (Negative) 04/11/19 14:49 Negative HPF (Negative) 04/11/19 14:49 Many HPF (Negative) 04/11/19 14:49 Negative LPF (Negative) 04/11/19 14:49 Negative (Negative) 04/11/19 14:49 Few renal (Negative) 04/11/19 14:49 Ur Culture Indicated? Yes 04/11/19 14:49 100 mg/dL (Negative) 04/11/19 14:49 Negative (Negative) 04/11/19 14:49 Negative (Negative) 04/11/19 14:49 Ur Barbiturates Screen Negative (Negative) 04/11/19 14:49 Ur Tricyclics Screen Negative (Negative) 04/11/19 14:49 Ur Amphetamines Screen Negative (Negative) 04/11/19 14:49 U Benzodiazepines Scrn Negative (Negative) 04/11/19 14:49 Negative (Negative) 04/11/19 14:49 Ur THC Screen Negative (Negative) 04/11/19 14:49 Ethyl Alcohol 3.3 mg/dL (<3) 04/11/19 10:55
--- NOTE | 2019-04-15 15:44 | PDOC.CMPRO ---
Care Management Progress Note S/O: Leticia was resting in bed and appeared to be in a sound sleep. I did not wake her today. Telephone Interceptor Operator, Lien Collins, came in to meet her yesterday and left her card. She is willing to meet with Leticia as an outpatient. A: 73 y.o. female admitted for tachycardia and Hypertension. P: Leticia will return home and resume her current MOW and private caregiver services. RCT to transport.
[2019-04-15] MEDS: Acetaminophen 500 MG TAB 1000 MG PO (17:54)
[2019-04-16 03:48] VITALS: BP 141/79; PULSE 87; RESP 18; TEMP 36; O2SAT 97
[2019-04-16 07:15] LABS: Abs Immature Grans 0.02 k/cumm (0.0-0.09); Absolute Basophil Count 0.03 k/cumm (0.0-0.2); Absolute Eosinophil Count 0.31 k/cumm (0.0-0.7); Absolute Lymphocyte Count 1.61 k/cumm (1.2-3.4); Absolute Monocyte Count 0.38 k/cumm (0.11-0.7); Absolute Neutrophil Count 4.04 k/cumm (1.2-6.7); Basophils % 0.5; Eosinophils % 4.9; HCT 34.6 % (36.0-46.0); Immature Grans % 0.3; Lymphocytes % 25.2; Mean Corp. HGB Concentration 31.8 g/dL (32.0-36.0); Mean Corpuscular Hemoglobin 31.3 pg (27.0-33.0); Mean Corpuscular Volume 98.6 fL (80-95); Mean Platelet Volume 9.3 fL (8.0-11.0); Monocytes % 5.9; Neutrophils % 63.2; Platelet Count 386 x1000/uL (130-400); RBC 3.51 m/cumm (4.00-5.20); RBC Distribution Width 18.8 % (11.7-14.6); White Blood Cell Count 6.39 k/cumm (4.4-10.8)
[2019-04-16] MEDS: Pantoprazole 40 MG TABCR PO (07:25)
[2019-04-16] MEDS: Lidocaine 5% Patch 1 PATCH TP (07:26)
[2019-04-16 07:34] LABS: Anion Gap 10.7 mmol/L (3-11); BUN 17 mg/dL (7-18); CO2 26.3 mmol/L (21.0-32.0); CREATININE 0.99 mg/dL (0.55-1.02); Calcium 9.8 mg/dL (8.5-10.1); Chloride 101 mmol/L (98-107); Estimated GFR 55.14 (mL/min/1.73m2); Glucose 108 mg/dL (70-100); Magnesium 1.7 mg/dL (1.8-2.4); Potassium 4.2 mmol/L (3.5-5.1); Sodium 138 mmol/L (136-145)
[2019-04-16 07:36] LABS: Diff Comment RBC Morph Reviewed
[2019-04-16 07:37] LABS: Anisocytosis 2+; Hypochromasia 1+; Polychromasia Present
[2019-04-16 08:16] VITALS: BP 158/91; PULSE 85; RESP 18; TEMP 36.2; O2SAT 97
[2019-04-16] MEDS: amLODIPine 10 MG TAB PO (09:05)
[2019-04-16] MEDS: Multivitamin w/Minerals TAB 1 TAB PO (09:05)
[2019-04-16] MEDS: LORazepam 1 MG TAB PO/SL ×2 (09:05→16:34)
[2019-04-16] MEDS: Venlafaxine 150 MG CAPCR PO (09:05)
[2019-04-16] MEDS: Magnesium Oxide 400 MG TAB PO ×2 (09:05→20:22)
[2019-04-16] MEDS: Thiamine 100 MG TAB PO (09:05)
[2019-04-16] MEDS: Metoprolol 50 MG TAB PO ×2 (09:05→20:22)
[2019-04-16] MEDS: Folic Acid 1 MG TAB PO (09:06)
[2019-04-16] MEDS: Senna TAB 1 TAB PO ×2 (09:06→20:22)
[2019-04-16] MEDS: Docusate Sodium 100 MG CAP PO ×2 (09:06→20:22)
[2019-04-16] MEDS: Gabapentin 300 MG CAP PO ×3 (09:06→20:22)
[2019-04-16] MEDS: Acetaminophen 500 MG TAB 1000 MG PO ×2 (09:06→20:33)
--- NOTE | 2019-04-16 10:00 | OT.INTREAT ---
Date of service: 04/16/19 Time of Service: 09:40 Occupational Therapy Notes Occupational Therapy Inpatient Treatment Note Date: 04/16/19 PRECAUTIONS: Fall, Standard SUBJECTIVE: Pt states that she is willing to participate in OT session. She reports that she had fallen over the weekend attempting to go to the bathroom by herself. She states that she hurt her thumb, she says that the doctor told her it was broken but that it feels like it is fine, she then later expresses pain in her (R) thumb. OBJECTIVE: PAIN:c/o pain in her lower back and ribs. FUNCTIONAL MOBILITY Sit-stand: Min vc for hand placement, FWW and SBA Stand-sit: SBA, FWW Sink-Chair: SBA, FWW Chair-Sink: SBA, FWW GROOMING: Standing at sink with FWW, pt was able to perform her teeth brushing with min vc, pt has difficulty opening and closing her toothpaste container with her (R) prefabricated orthosis. Pt required min vc for weight shifting and hand placement. Pt then was able to stand at the sink and perform hair brushing which she required min vc and min (A) for back of head. ASSESSMENT/PLAN: Pt was able to perform hair and teeth brushing standing at sink with FWW. She presents with decreased functional activity tolerance, she has c/o pain in her lower back. She denies performance of bathing and states that she performed this prior to OT arrival. She notes that she is in pain from falling this past weekend. She was moving her (R) digits without noted pain. She thumb is sore at time. OT will continue to work with pt to progress towards goals established at initial evaluation. TREATMENT CODES/TIME: [id number], 20 minutes (09:40) Yee Elizalde OTR/[facility]
[2019-04-16 11:37] VITALS: BP 142/92; PULSE 93; RESP 16; TEMP 36.6; O2SAT 95
--- NOTE | 2019-04-16 11:47 | PT.INTREAT ---
Date of service: 04/16/19 Time of Service: 11:47 PT Notes Inpatient Physical Therapy Treatment Note [facility] Date: 04/16/19 PRECAUTIONS: Fall SUBJECTIVE: Leticia states that her thumb and ribs are sore from when she fell over the weekend. She reports that she wants to go home upon discharge and states that she feels this is a safe plan for her. OBJECTIVE: PAIN: Patient c/o R thumb and rib pain BED MOBILITY/TRANSFERS Supine-sit: S Sit-stand: SBA Stand-sit: SBA GAIT Assistive Device: FWW Weight bearing: Full Assist: CGA Distance: 70' x2 Deviation: Seated rest x1, slow pace, cueing for direction THEREX: Patient completed a LE strengthening and stabilization program, in a supine position, as per flow sheet. Patient required verbal and tactile cueing for appropriate exercise completion. STAIRS: Up/down 3x4 using B rails and a step-to pattern with CGA. ASSESSMENT: Patient tolerated gait training demonstrating slow pacing and requiring cueing for direction and FWW management. Patient would benefit from continued gait and transfer training as well as global strengthening for improved safety with mobility as well as for improved activity tolerance. PLAN: Continue with PT's POC TREATMENT CODE/TIME: 30 minutes; 11494, [id number]
[2019-04-16] MEDS: Magnesium Oxide 400 MG TAB 800 MG PO (13:28)
--- NOTE | 2019-04-16 14:19 | W.PM.PROGNOT ---
Date of Service Date of service: 04/16/19 Time of Service: 14:20 Assessment and Plan (1) Alcohol abuse: Current visit: No Status: Chronic Currently showing no signs of withdrawl. No tremors noted, mental status appropriate, and patient is oriented X3 and without diaphoresis or hallucinations. Underlying hypertension and tachycardia very likely related to lack of medications (see below). 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 Of note, patient also did not show any signs of withdrawl during multiple prior hospitalizations. Continue to maintained on CIWA protoco, but continue to wean Chlordiazepoxide. Has previously declined offers for multiple different strategies aimed at assisting her at home and as an outpatient in the past. Has also been dropped by Home Health Services due to intoxication during visits, limiting their ability to effectively help. Is expressing some interest in a sobriety high school coach, and Case Management has been attempting to help facilitate this. Discussed importance of abstinence in detail with patient on multiple prior occasions. (2) Hypertension: Current visit: Yes Status: Chronic Appearance of significant hypertension and tachycardia at time of admission currently and in the past. Of note, Mrs. Ingram has a significant prior history of HTN, previously on combination of medications that included CCB, Spironolactone, BB, and ARB, admitted with thiazide as her only therapy. Presenting hypertension may be related to medication noncompliance at home, and tachycardia related to lack of BB therapy, in addition to initial dehydration in setting of likely EtOH use. Continue CCB, changed prn clonidine to IV lopressor, and initiated BB therapy. Plans on restarting home thiazide soon as well. Current blood pressure appears improved. (3) Tachycardia: Current visit: Yes Status: Acute As above - HR is improved with reinitiation of BB therapy. (4) Multiple rib fractures: Current visit: No Status: Acute History of numerous falls with Rib fractures, occuring in setting of EtOH abuse and intoxication. Recent hospitalization at [facility] with evidence of fractures and associated hemothorax, s/p Chest Tube placement. Current imaging with decrease in size of pleural effusion and basilar atelectasis. Ensure physical therapy, continue Gabapentin, Topical Lidocaine, and Robaxin. Discontinued NSAID therapy given history of gastritis, and started low dose Tramadol. (5) Hand fracture: Current visit: Yes Status: Acute Mechanical fall with resultant fracture - has undergone evaluation by Ortho, with recommendations for maintaining patient on a wrist immobilizer with kaitlin taping of the index and middle fingers for approximately 2 weeks. (6) Pleural effusion on left: Current visit: No Status: Chronic Recent hemothorax requiring Chest Tube placement. Findings appear improved. Continue to monitor. (7) GERD (gastroesophageal reflux disease): Current visit: No Status: Chronic Continue daily PPI therapy. (8) DVT prophylaxis: Current visit: Yes Status: Acute Continue SCDs and TEDs. Continue to hold off chemical prophylaxis given recent hemothorax. (9) Advance directive on file: Current visit: Yes Status: Acute Full Code. Subjective Interval history since last seen: 73-year-old woman with a history of chronic alcoholism and frequent falls while inebriated, with a recent development of a hemothorax requiring hospitalization and chest tube placement, admitted from [facility] Emergency Department 04/11 with concern regarding acute alcohol withdrawl. Ms. Ingram has a Past Medical History significant for EtOH abuse with frequent falls while intoxicated, HTN, GERD, prior GIB and Gastritis, as well as a history of alcoholic pancreatitis. She has been seen in the ED on multiple occasions after falls, and was hospitalized here with rib fractures in the past. She was apparently hospitalized at [facility] between 03/11 and 03/21 with rib fractures and hemothorax, requiring placement of a chest tube. Prior to previous hospitalizations she has also been noted to be significantly hypertensive and tachycardic. Following her admission at [facility] she was sent to SNF at [facility], and then discharged home. She presented to the ED 2 days later with acute complaints of SOB, nausea, and vomiting. She was found to be anxious, and again hypertensive and tachycardic. Her work-up was essentially negative. The patient was referred for admission due to concern for possible Alcohol Withdrawl. Following admission the patient has been maintained on CIWA protocol but showed very little signs of withdrawl. Her HR had remained mostly in the 90's prior to reinitiation of BB therapy, and blood pressure appears improved as well. Of note, review of patient's records indicates prior treatment with BB therapy, as well as CCB, ARB, and Spironolactone - none of which she was on at time of her admission. Also known to have medication noncompliance in the past - along with dehydration as potential explanation for her presenting symptoms of elevated blood pressure and HR. On 04/14 Mrs. Ingram suffered a mechanical fall, precipitated by attempting to ambulate while wearing her SCDs, and suffered a fracture of right 2nd digit and 5th metacarpal. She continues to complain of hand pain, now better controlled. Although she reported hitting her head CT imaging was negative for fracture or acute pathology. No other events reported. Remains afebrile. Exam Narrative Exam Narrative: General: Patient appears comfortable, AAOX3, NAD Neck: Supple CV: Regular, not tachycardic, S1S2. Pulmonary: Bibasilar crackles continued Abdomen: + Bowel Sounds, soft, nontender, nondistended Vascular: No lower extremity edema Psych: Normal mood and affect. Objective Objective Clinical Data: Abnormal lab results 04/16/19 04/16/19 Range/Units 06:35 06:35 RBC 3.51 L (4.00-5.20) m/cumm Hgb 11.0 L (12.0-15.5) g/dL Hct 34.6 L (36.0-46.0) % MCV 98.6 H (80-95) fL MCHC 31.8 L (32.0-36.0) g/dL RDW 18.8 H (11.7-14.6) % Glucose 108 H (70-100) mg/dL Magnesium 1.7 L (1.8-2.4) mg/dL Vital Signs Temperature 36.6 C 04/16/19 11:37 Temperature Source Tympanic 04/16/19 11:37 Pulse 93 H 04/16/19 11:37 Pulse Rhythm Regular 04/16/19 07:42 Pulse 95 H 04/14/19 08:01 Respiratory Rate 16 04/16/19 11:37 Respiratory Effort Non-Labored 04/16/19 07:42 Respiratory Depth Normal 04/16/19 07:42 Respiratory Pattern Normal 04/16/19 07:42 Blood Pressure 142/92 H 04/16/19 11:37 Blood Pressure Mean 103 04/14/19 08:01 Blood Pressure Position Supine 04/13/19 16:00 Pulse Oximetry 95 04/16/19 11:37 Oxygen Delivery Method Room Air 04/16/19 11:37 Oxygen Flow Rate 0 04/16/19 11:37 Pain Level 4 04/16/19 10:06 Comment 04/14/19 16:38 Intake & Output 04/15/19 04/16/19 04/16/19 23:59 11:59 23:59 Intake Total 720 / 1400 240 / 240 Output Total 400 / 400 Balance 720 / 1100 -400 / -160 240 / -160 Intake: Oral 720 / 1400 240 / 240 Output: Urine 400 / 400 Other: Urine Color Yellow Yellow Urine Appearance Clear Clear Urine Odor Normal Normal Comment pt voided in toilet, unmeasured. Voiding Methods Diaper Toilet Incontinent Laboratory Results WBC 6.39 k/cumm (4.4-10.8) 04/16/19 06:35 RBC 3.51 m/cumm (4.00-5.20) L 04/16/19 06:35 Hgb 11.0 g/dL (12.0-15.5) L 04/16/19 06:35 Hct 34.6 % (36.0-46.0) L 04/16/19 06:35 MCV 98.6 fL (80-95) H 04/16/19 06:35 MCH 31.3 pg (27.0-33.0) 04/16/19 06:35 MCHC 31.8 g/dL (32.0-36.0) L 04/16/19 06:35 RDW 18.8 % (11.7-14.6) H 04/16/19 06:35 Plt Count 386 x1000/uL (130-400) 04/16/19 06:35 MPV 9.3 fL (8.0-11.0) 04/16/19 06:35 Immature Gran % 0.3 04/16/19 06:35 63.2 04/16/19 06:35 25.2 04/16/19 06:35 5.9 04/16/19 06:35 4.9 04/16/19 06:35 0.5 04/16/19 06:35 Absolute Neutrophils 4.04 k/cumm (1.2-6.7) 04/16/19 06:35 Absolute Lymphocytes 1.61 k/cumm (1.2-3.4) 04/16/19 06:35 Absolute Monocytes 0.38 k/cumm (0.11-0.7) 04/16/19 06:35 Absolute Eosinophils 0.31 k/cumm (0.0-0.7) 04/16/19 06:35 Absolute Basophils 0.03 k/cumm (0.0-0.2) 04/16/19 06:35 Rbc morph reviewed 04/16/19 06:35 RBC Morphology See below 04/16/19 06:35 Present 04/16/19 06:35 1+ 04/16/19 06:35 2+ 04/11/19 10:55 2+ 04/16/19 06:35 2+ 04/11/19 10:55 PT 9.8 sec (9.3-11.0) 04/11/19 10:55 INR 1.0 (0.9-1.1) 04/11/19 10:55 APTT 21.8 sec (21.0-31.4) 04/11/19 10:55 4716 ng/mlFEU (<500) H 04/11/19 10:55 Sodium 138 mmol/L (136-145) 04/16/19 06:35 Potassium 4.2 mmol/L (3.5-5.1) 04/16/19 06:35 Chloride 101 mmol/L (98-107) 04/16/19 06:35 Carbon Dioxide 26.3 mmol/L (21.0-32.0) 04/16/19 06:35 10.7 mmol/L (3-11) 04/16/19 06:35 BUN 17 mg/dL (7-18) 04/16/19 06:35 0.99 mg/dL (0.55-1.02) 04/16/19 06:35 55.14 (mL/min/1.73m2) 04/16/19 06:35 Glucose 108 mg/dL (70-100) H 04/16/19 06:35 1.1 mmol/L (0.6-1.4) 04/11/19 20:30 Calcium 9.8 mg/dL (8.5-10.1) 04/16/19 06:35 Magnesium 1.7 mg/dL (1.8-2.4) L 04/16/19 06:35 1.0 mg/dL (0.2-1.0) 04/12/19 06:35 AST 26 U/L (15-37) 04/12/19 06:35 ALT 31 U/L (12-78) 04/12/19 06:35 178 U/L (46-116) H 04/12/19 06:35 14 umol/L (11-32) 04/11/19 11:50 < 0.05 ng/mL (0.00-0.06) 04/11/19 10:55 NT-Pro-B Natriuret Pep 304 pg/mL (-299) H 04/11/19 10:55 7.2 g/dL (6.4-8.2) 04/12/19 06:35 3.1 g/dL (3.4-5.0) L 04/12/19 06:35 104 U/L (73-393) 04/11/19 10:55 TSH 0.40 uIU/mL (0.36-3.74) 04/12/19 06:35 Free T4 1.32 ng/dL (0.76-1.46) 04/12/19 06:35 Yellow (Yellow) 04/11/19 14:49 Clear (Clear) 04/11/19 14:49 7.0 (5-8) 04/11/19 14:49 Ur Specific [place] 1.015 (1.005-1.025) 04/11/19 14:49 >=300 mg/dL (Negative) H 04/11/19 14:49 40 mg/dL (Negative) H 04/11/19 14:49 Trace-lysed (Negative) H 04/11/19 14:49 Negative (Negative) 04/11/19 14:49 Negative (Negative) 04/11/19 14:49 0.2 EU/dL (Up TO 0.2) 04/11/19 14:49 Ur Leukocyte Esterase Negative (Negative) 04/11/19 14:49 Negative (0-2) 04/11/19 14:49 5-10 HPF (0-5) 04/11/19 14:49 Ur Epithelial Cells Negative HPF (Negative) 04/11/19 14:49 Negative HPF (Negative) 04/11/19 14:49 Many HPF (Negative) 04/11/19 14:49 Negative LPF (Negative) 04/11/19 14:49 Negative (Negative) 04/11/19 14:49 Few renal (Negative) 04/11/19 14:49 Ur Culture Indicated? Yes 04/11/19 14:49 100 mg/dL (Negative) 04/11/19 14:49 Negative (Negative) 04/11/19 14:49 Negative (Negative) 04/11/19 14:49 Ur Barbiturates Screen Negative (Negative) 04/11/19 14:49 Ur Tricyclics Screen Negative (Negative) 04/11/19 14:49 Ur Amphetamines Screen Negative (Negative) 04/11/19 14:49 U Benzodiazepines Scrn Negative (Negative) 04/11/19 14:49 Negative (Negative) 04/11/19 14:49 Ur THC Screen Negative (Negative) 04/11/19 14:49 Ethyl Alcohol 3.3 mg/dL (<3) 04/11/19 10:55
[2019-04-16 15:10] VITALS: BP 129/80; PULSE 92; RESP 16; TEMP 36.8; O2SAT 95
--- NOTE | 2019-04-16 16:09 | CMPROGNOTE_ITS ---
- If Service Date Differs Date of service: 04/16/19 Time of Service: 16:09 Care Management Progress Note S/O: Leticia was resting in bed when CM came to see her. She appeared sleepy and had difficulty answering questions. PT had recommended that Leticia go to rehab at discharge.CM approached Leticia to determine if this was an option she wished to pursue. She stated that she would like to go home but didn't really care. CM contacted area facilities and neither [facility]. Leticia will likely be discharged home tomorrow. A: 73 y.o. female admitted for tachycardia and Hypertension. P: Leticia will return home and resume her current MOW and private caregiver services. [facility] to transport.
[2019-04-16 18:40] VITALS: BP 133/70; PULSE 93; RESP 18; TEMP 36.5; O2SAT 97
[2019-04-16 22:02] VITALS: BP 133/81; PULSE 95; RESP 18; TEMP 36.5; O2SAT 95
[2019-04-17 03:44] VITALS: BP 142/85; PULSE 82; RESP 18; TEMP 36.5; O2SAT 96
[2019-04-17 06:58] LABS: Abs Immature Grans 0.02 k/cumm (0.0-0.09); Absolute Basophil Count 0.01 k/cumm (0.0-0.2); Absolute Eosinophil Count 0.24 k/cumm (0.0-0.7); Absolute Lymphocyte Count 1.21 k/cumm (1.2-3.4); Absolute Monocyte Count 0.33 k/cumm (0.11-0.7); Absolute Neutrophil Count 4.09 k/cumm (1.2-6.7); Basophils % 0.2; Eosinophils % 4.1; HCT 32.5 % (36.0-46.0); HGB 10.2 g/dL (12.0-15.5); Immature Grans % 0.3; Lymphocytes % 20.5; Mean Corp. HGB Concentration 31.4 g/dL (32.0-36.0); Mean Corpuscular Hemoglobin 30.8 pg (27.0-33.0); Mean Corpuscular Volume 98.2 fL (80-95); Mean Platelet Volume 9.4 fL (8.0-11.0); Monocytes % 5.6; Neutrophils % 69.3; Platelet Count 330 x1000/uL (130-400); RBC 3.31 m/cumm (4.00-5.20); RBC Distribution Width 18.4 % (11.7-14.6)
[2019-04-17 07:10] VITALS: BP 158/79; PULSE 80; RESP 20; TEMP 36.6; O2SAT 98
[2019-04-17 07:28] LABS: Anion Gap 8.6 mmol/L (3-11); BUN 19 mg/dL (7-18); CO2 27.4 mmol/L (21.0-32.0); CREATININE 0.91 mg/dL (0.55-1.02); Calcium 9.8 mg/dL (8.5-10.1); Chloride 104 mmol/L (98-107); Glucose 109 mg/dL (70-100); Magnesium 1.8 mg/dL (1.8-2.4); Potassium 3.9 mmol/L (3.5-5.1); Sodium 140 mmol/L (136-145)
[2019-04-17] MEDS: Lidocaine 5% Patch 1 PATCH TP (08:25)
[2019-04-17] MEDS: Metoprolol 50 MG TAB PO (08:30)
[2019-04-17] MEDS: Gabapentin 300 MG CAP PO ×2 (08:30→13:57)
[2019-04-17] MEDS: Magnesium Oxide 400 MG TAB PO (08:30)
[2019-04-17] MEDS: Docusate Sodium 100 MG CAP PO (08:30)
[2019-04-17] MEDS: Multivitamin w/Minerals TAB 1 TAB PO (08:30)
[2019-04-17] MEDS: Folic Acid 1 MG TAB PO (08:30)
[2019-04-17] MEDS: Pantoprazole 40 MG TABCR PO (08:31)
[2019-04-17] MEDS: Venlafaxine 150 MG CAPCR PO (08:31)
[2019-04-17] MEDS: Thiamine 100 MG TAB PO (08:31)
[2019-04-17] MEDS: amLODIPine 10 MG TAB PO (08:31)
[2019-04-17] MEDS: Senna TAB 1 TAB PO (08:31)
--- NOTE | 2019-04-17 09:09 | OT.INTREAT ---
Date of service: 04/17/19 Time of Service: 08:55 Occupational Therapy Notes Occupational Therapy Inpatient Treatment Note Date: 04/17/19 PRECAUTIONS: Fall, standard SUBJECTIVE: Pt was sitting in chair when OT arrived. She was agreeable to OT session and states that she would like to use the bathroom. She performed her bathing routine with nursing prior to OT arrival. OBJECTIVE: PAIN: c/o pain in ribs with sit-stand FUNCTIONAL MOBILITY Sit-stand: CGA, FWW Stand-sit: CGA, FWW Toilet-Chair: CGA Chair-Toilet: CGA GROOMING: Standing at sink with FWW (I) with brushing teeth pt was able to squeeze her toothpaste on to toothbrush. TOILETING: Device: Toilet Assist: (I) with mod vc throughout ASSESSMENT/PLAN: Pt was able to tolerate standing at sink well with increased (I). She did require increased vc for toileting routine. Pt was able to perform her teeth brushing with increased (I) and was able to put her own tooth paste on her tooth brush. She did require vc for toileting routine. Pt states that she thinks she is going home today. OT will monitor pts response to todays session and progress accordingly. TREATMENT CODES/TIME: [id number], 15 minutes (08:55) Yee Elizalde OTR/[facility]
[2019-04-17 11:35] VITALS: BP 146/80; PULSE 88; RESP 18; TEMP 36.6; O2SAT 98
--- NOTE | 2019-04-17 12:43 | PT.INTREAT ---
Date of service: 04/17/19 Time of Service: 12:43 PT Notes Inpatient Physical Therapy Treatment Note [facility] Date: 04/17/19 PRECAUTIONS: Fall SUBJECTIVE: Leticia appears sleepy this morning, although, is agreeable to participating in PT. OBJECTIVE: PAIN: No c/o pain BED MOBILITY/TRANSFERS Supine-sit: I with HOB flat Sit-stand: SBA Stand-sit: SBA GAIT Assistive Device: FWW Weight bearing: Full Assist: CGA Distance: 120' + 5' Deviation: Slow pace, verbal and tactile cueing for direction and FWW mechanics and management ASSESSMENT: Patient tolerated gait training demonstrating slow pacing and requiring cueing for direction and FWW management. Patient would benefit from continued gait and transfer training as well as global strengthening for improved safety with mobility as well as for improved activity tolerance. PLAN: Continue with PT's POC TREATMENT CODE/TIME: 35 minutes; [id number] x2
--- NOTE | 2019-04-17 13:23 | PDOC.CMPRO ---
- If Service Date Differs Date of service: 04/17/19 Time of Service: 13:23 Care Management Progress Note S/O: Leticia was sitting up in her chair eating lunch when CM entered the room. Leticia was not very talkative as she was trying to eat her lunch. CM asked about transportation home, which CM will help coordinate. It took Leticia a long time to process questions, with long pauses between communication. A: 73 y.o. female admitted for tachycardia and Hypertension. P: Leticia will return home and resume her current MOW and private caregiver services. CM will help coordinate transportation home.
--- NOTE | 2019-04-17 13:45 | DSE_ITS ---
Date of service: 04/17/19 Time of Service: 13:46 DS: Diagnosis Discharge Diagnosis (1) Alcohol abuse: Status: Chronic (2) Hypertension: Status: Chronic (3) Tachycardia: Status: Acute (4) Multiple rib fractures: Status: Acute (5) Hand fracture: Status: Acute (6) Pleural effusion on left: Status: Chronic (7) GERD (gastroesophageal reflux disease): Status: Chronic (8) Advance directive on file: Status: Acute Discharge Plan Disposition Patient Disposition: HOME W/HOME HEALTH SERVICE Condition: Stable Discharge Details Chief Complaint: SOB Reason For Visit: TACHYCARDIA, HTN Admit Date/Time: 04/11/19 14:41 Admit Provider: Susie Moore Attending Provider: Susie Moore Primary Care Provider: Lavelle Galindo ED Provider: Tash Servin [facility] Course Hospital Course: Chief Complaint: Dyspnea, Nausea HPI: 73-year-old woman with a history of chronic alcoholism and frequent falls while inebriated, with a recent development of a hemothorax requiring hospitalization and chest tube placement, admitted from [facility] Emergency Department 04/11 with concern regarding acute alcohol withdrawl. Ms. Ingram has a Past Medical History significant for EtOH abuse with frequent falls while intoxicated, HTN, GERD, prior GIB and Gastritis, as well as a history of alcoholic pancreatitis. She has been seen in the ED on multiple occasions after falls, and was hospitalized here with rib fractures in the past. She was apparently hospitalized at [facility] between 03/11 and 03/21 with rib fractures and hemothorax, requiring placement of a chest tube. Prior to previous hospitalizations she has also been noted to be significantly hypertensive and tachycardic. Following her admission at [facility] she was sent to SNF at [facility], and then discharged home. She presented to the ED approximately one week later with acute complaints of SOB, nausea, and vomiting. She was found to be anxious, and again hypertensive and tachycardic. Her work-up was essentially negative. The patient was referred for admission due to concern for possible Alcohol Withdrawl. Following admission the patient has been maintained on CIWA protocol but showed very little signs of withdrawl. Her HR had remained mostly in the 90's prior to reinitiation of BB therapy, and blood pressure appears improved as well. Of note, review of patient's records indicates prior treatment with BB therapy, as well as CCB, ARB, and Spironolactone - none of which she was on at time of her admission. Also known to have medication noncompliance in the past - along with dehydration as potential explanation for her presenting symptoms of elevated blood pressure and HR. On 04/14 Mrs. Ingram suffered a mechanical fall, precipitated by attempting to ambulate while wearing her SCDs, and suffered a fracture of right 2nd digit and 5th metacarpal. She continues to complain of thumb pain, deemed likely ligament sprain by Ortho. Although she reported hitting her head CT imaging was negative for fracture or acute pathology. She received doses of Ativan overnight for anxiety, but still without evidence for active withdrawl. No other events reported. Remains afebrile. Hospital Course: (1) Alcohol abuse: Currently showing no signs of withdrawl. Again with no tremors noted, mental status at baseline, and patient is oriented X3 and without diaphoresis or hallucinations. Underlying hypertension and tachycardia very likely related to lack of medications (see below), both now improved. 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 Of note, patient also did not show any signs of withdrawl during multiple prior hospitalizations. Was maintained on Chlordiazepoxide, weaned off. Has previously declined offers for multiple different strategies aimed at assisting her at home and as an outpatient in the past. Has also been dropped by Home Health Services due to intoxication during visits, limiting their ability to effectively help. Is expressing some interest in a sobriety head strength and conditioning coach, and Case Management has been attempting to help facilitate this. Discussed importance of abstinence in detail with patient on multiple prior occasions, including today. (2) Hypertension: Appearance of significant hypertension and tachycardia at time of admission currently and in the past. Of note, Mrs. Ingram has a prior history of HTN, previously on combination of medications that has included CCB, Spironolactone, BB, and ARB, admitted with thiazide as her only therapy. Presenting hypertension may be related to medication noncompliance at home, and tachycardia related to lack of BB therapy, in addition to initial dehydration in setting of likely EtOH use. Continue CCB and BB therapy. Hold off on thiazide. Current blood pressure appears improved. Needs follow-up as outpatient. (3) Tachycardia: As above - HR is improved with reinitiation of BB therapy. (4) Multiple rib fractures: History of numerous falls with Rib fractures, occuring in setting of EtOH abuse and intoxication. Recent hospitalization at [facility] with evidence of fractures and associated hemothorax, s/p Chest Tube placement. Current imaging with decrease in size of pleural effusion and basilar atelectasis. Ensure physical therapy, continue Gabapentin, Topical Lidocaine, and Robaxin. Discontinued NSAID therapy given history of gastritis, and maintained on low dose Tramadol while hospitalized. (5) Hand fracture: Mechanical fall with resultant fracture - has undergone evaluation by Ortho, with recommendations for maintaining patient on a wrist immobilizer with kaitlin taping of the index and middle fingers for approximately 2 weeks. (6) Pleural effusion on left: Recent hemothorax requiring Chest Tube placement. Findings appear improved. Continue to monitor. (7) GERD (gastroesophageal reflux disease): Continue daily PPI therapy. (8) DVT prophylaxis: Was maintained on SCDs and TEDs, with chemical prophylaxis held given recent hemothorax. (9) Advance directive on file: Full Code. (10) Disposition: Official recommendation was for SNF placement - however there are no beds available, and patient has been refused due to substance abuse and leaving AMA in the past. Only current option is for return to home with home services, i ncluding VNA, PT, and OT - however, she has also been refused by home services in the past due to inebriation and intoxication during visits. Discussed importance of sobriety in detail, including risk of falls when drinking and at home. Also informed of meals on wheels services through the [place] [facility], and possible home caregiver per case management. Home Meds and New Rx's Prescriptions: New venlafaxine 150 mg Capsule,Extended Release 24hr 150 mg PO QAM Qty: 0 RF: 0 amlodipine 10 mg Tablet 10 mg PO DAILY Qty: 0 RF: 0 pantoprazole 40 mg Tablet,Delayed Release (Dr/Ec) 40 mg PO DAILY@0730 Qty: 0 RF: 0 metoprolol tartrate 50 mg Tablet 50 mg PO BID Qty: 60 RF: 0 ondansetron 4 mg Tablet,Disintegrating 4 mg PO QID PRN PRN (Reason: nausea and vomiting) Qty: 0 RF: 0 Continued fluticasone propionate 16 GM spray,suspension 1 spr NS daily prn Qty: 3 RF: 3 magnesium oxide 400 mg (241.3 mg magnesium) tablet 400 mg PO BID Qty: 180 RF: 3 gabapentin 300 mg capsule 300 mg PO TID Qty: 90 RF: 5 acetaminophen [Tylenol Extra Strength] 500 mg tablet 1,000 mg PO Q8H PRN PRNRF: 0 ferrous sulfate 325 mg (65 mg iron) tablet,delayed release (DR/EC) 325 mg PO DAILY RF: 0 methocarbamol 500 mg tablet 500 mg PO Q6H PRN RF: 0 lidocaine 5 % adhesive patch,medicated 1 patch TP DAILY RF: 0 polyethylene glycol 3350 17 GM powder in packet 17 gm PO DAILY PRN PRN (Reason: Constipation) RF: 0 folic acid 1 mg Tablet 1 mg PO DAILY Qty: 14 RF: 0 bisacodyl 10 mg Suppository 10 mg OR PRN PRNRF: 0 Discontinued hydrochlorothiazide 12.5 mg tablet 12.5 mg PO DAILY Qty: 90 RF: 3 Discharge Instructions Additional Instructions: Please see your Primary care provider within 1 week of discharge You need to wear your wrist brace and tape your fingers for the next 2 weeks Stand Alone Forms: Nursing Discharge Form Referrals: Maximilian Villarreal MD [ [facility] STAFF PHYSICIAN] - (2 weeks) Lavelle Galindo [Primary Care Provider] - 04/27/19 10:40 am Activity:: No strenuous activity Equipment/Supplies:: Wrist Brace Diet:: As Tolerated Discharge Orders Discharge Orders: Discharge Order (Routine); Ordered 04/17/19 Ordered By: Robert Medina DS: Data Vitals/I&O Vitals and I&O: Vital Signs Temperature 36.6 C 04/17/19 11:35 Temperature Source Tympanic 04/17/19 11:35 Pulse 88 04/17/19 11:35 Pulse Rhythm Regular 04/16/19 20:28 Pulse 95 H 04/14/19 08:01 Respiratory Rate 18 04/17/19 11:35 Respiratory Effort Non-Labored 04/16/19 20:28 Respiratory Depth Normal 04/16/19 20:28 Respiratory Pattern Normal 04/16/19 20:28 Blood Pressure 146/80 H 04/17/19 11:35 Blood Pressure Mean 103 04/14/19 08:01 Blood Pressure Position Supine 04/13/19 16:00 Pulse Oximetry 98 04/17/19 11:35 Oxygen Delivery Method Room Air 04/17/19 11:35 Oxygen Flow Rate 0 04/17/19 11:35 Pain Level 0 04/17/19 11:35 Comment 04/14/19 16:38 Intake & Output 04/16/19 04/17/19 04/17/19 23:59 11:59 23:59 Intake Total 360 / 360 660 / 900 240 / 900 Balance 360 / -40 660 / 900 240 / 900 Intake: Oral 360 / 360 660 / 900 240 / 900 Other: Urine Color Yellow Urine Appearance Clear Urine Odor Normal Normal Stool Size Large Copious Stool Characteristics Formed Soft Brown Formed Voiding Methods Diaper Diaper Incontinent Incontinent Completed studies during hospitalization [Text1]: Exam(s) 04/11/2019 a RAD:XR chest 2V PA & lateral SYMPTOMS/DIAGNOSIS: SHORTNESS OF BREATH AP AND LATERAL CHEST: Comparison is made with March,. There has been continued interval decrease in size of the previously noted left pleural effusion and left basilar densities. Increased callus formation is seen along the left lateral rib fractures. No pneumothorax is seen. IMPRESSION: Continued decrease in size of left pleural effusion. No new abnormality. --------- Exam(s) 04/11/[address]:CT chest PE abd & pelvis w SYMPTOMS/DIAGNOSIS: TACHYCARDIA, SHORTNESS OF BREATH, ABDOMINAL PAIN CT OF THE CHEST, ABDOMEN AND PELVIS: CT angiography was performed with multi slice acquisition and multi planar and 3D reconstruction. Comparison is made with February,. Images were performed from the clavicles through the ischial tuberosities after IV contrast. There has been interval decrease in size of the left pleural effusion. There is mild adjacent compressive atelectasis. There are multiple left rib fractures, which show some increased callus formation when compared with the previous exam. The right lung shows dependent changes. There is a stable nodule in the right upper lobe when compared with a 2017 exam. There is no evidence of pneumothorax. The pulmonary arteries and aorta are well opacified with IV contrast and there is no evidence of aortic dissection or pulmonary emboli. There is again noted to be dilatation of the ascending aorta to 3.9 cm. The liver shows slight fatty infiltration. The gallbladder is unremarkable. The spleen is normal in size. There is a tiny hiatal hernia. Cysts are noted on both kidneys, right greater than left. There is no hydronephrosis. There is mild motion on the images through the upper abdomen, particularly through the level of the pancreas. No gross pancreatic abnormality is seen. The bladder, uterus and ovaries are unremarkable. There is no bowel dilatation or inflammatory change. The colon is mainly free of stool. The appendix appears normal. There is no small bowel dilatation or inflammatory change. The aorta shows mild calcification and is normal in diameter. No free air or free fluid is seen. Degenerative changes and scoliosis are again noted in the spine. There is a stable mild compression of the inferior endplate of T12. IMPRESSION: Interval decrease in size of right pleural effusion and basilar atelectasis. No acute abnormality is seen in the chest, abdomen or pelvis. --------- Exam(s) 04/14/[address]:CT head wo a RAD:XR hand RT complete SYMPTOM/DIAGNOSIS: FELL, HIT HEAD, PAIN NONCONTRAST HEAD CT: A noncontrast cranial CT was performed. There is moderate generalized cerebral atrophy. There is no evidence of acute intracranial hemorrhage, mass effect or midline shift. The orbital and temporal bone structures appear intact. Note is made of opacification of a couple of ethmoid air cells. Otherwise the paranasal sinuses appear well aerated. CONCLUSION: No evidence of acute intracranial process. RIGHT HAND: Three views were obtained. There is a moderately displaced fracture of the base of the proximal phalanx of the index finger. Deformity of the distal aspect of the fifth metacarpal is noted, probably unchanged from 01/17/19 and probably representing a healed fracture. Correlation is requested regarding any acute injury to the head of the fifth metacarpal. Labs on day of discharge: Labs from last 24 hours 04/17/19 04/17/19 06:46 06:40 WBC 5.90 RBC 3.31 L Hgb 10.2 L Hct 32.5 L MCV 98.2 H MCH 30.8 MCHC 31.4 L RDW 18.4 H Plt Count 330 MPV 9.4 Immature Gran % 0.3 Neutrophils % 69.3 Lymphocytes % 20.5 Monocytes % 5.6 Eosinophils % 4.1 Basophils % 0.2 Absolute Neutrophils 4.09 Absolute Lymphocytes 1.21 Absolute Monocytes 0.33 Absolute Eosinophils 0.24 Absolute Basophils 0.01 Sodium 140 Potassium 3.9 Chloride 104 Carbon Dioxide 27.4 Anion Gap 8.6 BUN 19 H Creatinine 0.91 Estimated GFR/1.73 m2 >= 60.00 Glucose 109 H Calcium 9.8 Magnesium 1.8 PFSH Medical History Alcohol abuse (Chronic) Alcoholic ketosis (Resolved) Allergic rhinitis (Chronic) Anemia (Chronic 12/20/16) Back pain, chronic (Chronic) Cataract (Chronic 11/07/15) Cervical radicular pain (Chronic) Chronic alcoholic gastritis (Chronic 10/12/17) Depression (Chronic) Elev transaminase/LDH (Chronic) Falling (Chronic) Genital herpes simplex (Chronic) GERD (gastroesophageal reflux disease) (Chronic) GI bleed (Chronic 12/20/16) Headache (Chronic) Hyperlipidemia (Chronic) Hypertension (Chronic) Macrocytosis (Chronic 09/26/14) Multiple rib fractures (Acute) Non-cardiac chest pain (Chronic 09/21/16) Osteoarthritis (Chronic) Osteopenia (Chronic) 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) Pleural effusion on left (Chronic) Right rib fracture (Resolved) Sciatica (Chronic) Tubular adenoma of colon (Chronic 01/28/17) Urinary incontinence (Chronic) Wernicke encephalopathy (Chronic) Surgical History Bladder Surgery Colonoscopy - MAC (01/28/17) EGD - MAC (12/20/16) Ligation of fallopian tube Repair bladder injury, simple Family History Mother No problems noted. Father No problems noted. Sister Personal history of malignant neoplasm Sister No problems noted. Grandfather Personal history of malignant neoplasm Grandfather Personal history of malignant neoplasm Grandmother Heart disease Acute ill-defined cerebrovascular disease Grandmother Personal history of malignant neoplasm Aunt Heart disease Aunt Heart disease Brother No problems noted. Social History Smoking/Tobacco Use Status: Former Tobacco Use Alcohol Intake: former Drug use: Never Details: Do you feel safe at home: Yes Additional Social history: my caregiver is an anxiety attack person
--- NOTE | 2019-04-17 14:05 | HHF2F_ITS ---
1. Encounter Date and Reason I certify that LINDA MONSIVAIS was seen by Robert Medina on 04/17/19 and that I had a [id number] encounter with this patient that meets the physician face to face encounter requirements. 2. Clinical Findings Supporting Skilled Need and Homebound Status I certify that home health services are medically necessary, include either intermittent custodial and/or physical/speech therapy, and that this patient is homebound in that absences from the home require considerable and taxing effort and are infrequent or of short duration, or are attributable to the need to receive medical care. [X] (a) Attached documentation from encounter provides clinical findings supporting skilled need and homebound status (including what assistance patient requires to leave the home). The encounter with the patient was in whole, or in part, for the following medical condition, which is the primary reason for home health care: TACHYCARDIA, HTN Nursing Home: Medication Reconcilliation, blood pressure and heart rate measurement Physical Therapy/Occupational Therapy: Frequent Falls, Rib and Hand Fractures, deconditioning. Need for continued services. Speech Therapy: Homebound: 3. Certification and Authentication I certify that I composed the above information based on my clinical judgement relating to this patient's medical condition and, if applicable, clinical findings communicated to me by the NPP or inpatient physician who performed the Home Health Referral. All further orders will be obtained through James Galindo (Community Based Physician - PCP)
--- NOTE | 2019-04-17 14:34 | CHAPLAIN ---
I've checked on Leticia a couple of times today (morning and afternoon) and have not caught her away, but will keep trying.
--- NOTE | 2019-04-18 08:30 | OTDS_ITS ---
Date of service: 04/18/19 Time of Service: 08:30 Occupational Therapy Notes Occupational Therapy Inpatient Discharge Summary Date: 04/18/19 Dates of Service: 04/13/19-04/17/19 Referring Doctor:Laly Dumont MD OT Orders: Eval and Treat Precautions: Fall, Standard PATIENT PROFILE/ADMITTING DIAGNOSIS: Pt is a 73 year old female who was admitted through the ER to the ICU one day after being discharged from [facility] for shortness of breath, nausea, vomiting. Past Medical History: Medical History (Updated 04/11/19 @ 15:52 by Susie Moore MD) Alcohol abuse (Chronic) Alcoholic ketosis (Resolved) Allergic rhinitis (Chronic) Anemia (Chronic 12/20/16) Back pain, chronic (Chronic) Cataract (Chronic 11/07/15) Cervical radicular pain (Chronic) Chronic alcoholic gastritis (Chronic 10/12/17) Depression (Chronic) Elev transaminase/LDH (Chronic) Falling (Chronic) Genital herpes simplex (Chronic) GERD (gastroesophageal reflux disease) (Chronic) GI bleed (Chronic 12/20/16) Headache (Chronic) Hyperlipidemia (Chronic) Hypertension (Chronic) Macrocytosis (Chronic 09/26/14) Multiple rib fractures (Acute) Non-cardiac chest pain (Chronic 09/21/16) Osteoarthritis (Chronic) Osteopenia (Chronic) 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) Pleural effusion on left (Acute) Right rib fracture (Resolved) Sciatica (Chronic) Tubular adenoma of colon (Chronic 01/28/17) Urinary incontinence (Chronic) Wernicke encephalopathy (Chronic) Surgical History Bladder Surgery Colonoscopy - MAC (01/28/17) EGD - MAC (12/20/16) Ligation of fallopian tube Repair bladder injury, simple Social History/Home Situation: Pt reports that she was just recently discharged from the [facility] the other day because of funds running out. She reports that she lives in a private home and has a caregiver who comes into the home 2 hours per day. She reports that her caregiver (A) with laundry, grocery shopping and homecare tasks. Pt states that she takes a shower 2x per week. She states that she has a shower seat and what she considers a regular shower. She has a regular toilet and grab bars near her shower but they are removeable. She states that otherwise she feels she is (I) and is able to wash and dress herself. She states that she sometimes has difficulty with LE dressing but this comes and goes she states that she never knows how the day will be. Equipment owned/DME: grab bars, shower seat. SUBJECTIVE: NT This document serves as a summary of care, no skilled OT services provided for this documentation. OBJECTIVE: ROM: RUE AROM WFL L UE AROM WFL with limited shoulder flexion to 110* STRENGTH: RUE Shoulder flexion 3-/5, bicep 2+/5, tricep 3-/5, media account executive is weak and symmetrical LUE Shoulder flexion 3-/5, bicep 3/5, tricep 3-/5, media account executive is weak and symmetrical FUNCTIONAL MOBILITY/ADLS: Transfers with FWW Supine-sit (S) Sit-Stand vc throughout for hand placement, CGA Bed-Commode CGA, FWW min vc throughout Bathing- Sitting in chair pt was (I) with face, abdomen and (B) UE, (B) LE pt required min vc throughout but was able to perform with vc provided. DRESSING Dressing LE (I) with don and doffing (B) socks with use of sock aid, (I) with don and doffing hospital with vc provided throughout. TOILETING on toilet (I) with vc throughout for toileting hygiene. BALANCE: Static sitting Normal Dynamic Sitting Good Static Standing Good Dynamic Standing Good ASSESSMENT: Patient is a 73-year-old female referred to occupational therapy services with diagnosis of shortness of breath, nausea, vomiting with care in the ICU due to pts significant medical hx. Pt was seen for 3 skilled OT services. Pt was able to demonstrate increased (I) in her ADL/IADL routines. Pt does require vc throughout to increase her overall (I) in her ADL/IADL routines. GOALS 1. Transfers- SBA, FWW-met 2. Dressing sitting on side of bed (I) with use of sock with ideal technique for socks, (I) with UE-not met 3. Bathing sitting on side of bed (I) UE/LE- not met 4. Toileting on commode (I) -met 5. Eating (I) -met 6. Grooming- standing at sink pt will be able to stand at sink with FWW (I) with brushing teeth- met PLAN OF CARE/TREATMENT PLAN: Discharge from skilled OT services, pt returned home with MOW and services on 04/17/19. DISCHARGE RECOMMENDATIONS SNF based on pts current functional level of status, OT will continue to assess pts functional (I) and make recommendations as needed. TREATMENT TIME/MINUTES/CODES N/A Yee Elizalde OTR/L [facility] Yee Elizalde OTR/L [facility]
--- NOTE | 2019-04-18 11:22 | PT.INDS ---
Date of service: 04/18/19 Time of Service: 11:23 PT Notes Date: 04/18/2019 Referring Doctor: Laly Dumont MD PT Orders: PT CONSULT: eval/treat Precautions: High fall risk. Standard. Activity as tolerated Treatment Dates: 04/13/19 - 04/17/19 This document serves as a summary of care. No PT services were provided on this date. Patient Profile/Admitting Diagnosis: Patient is a 73-year-old female with past medical history significant for ET OH abuse, back pain, depression, and frequent falling who presented to the ED 04/11/2019 with chief complaints of shortness of breath, nausea, and vomiting. Patient was diagnosed with dyspnea, tachycardia, hypertension, and toe abuse, lactic acidosis, and hypomagnesemia. She participated in 7 PT sessions over the course of 5 days, with improvements in mobility and activity tolerance. She was discharged home with services on 04/17/19. Social History/Home Situation: Leticia lives alone in a private apartment. She has a caregiver who comes in daily 5 days per week for 2 hours each time to assist with laundry, minor house chores, and grocery shopping. Patient is independent with MRADLs using a straight cane. She has a walker which she states she does not use often. She receives meals on wheels. She no longer drives. Subjective: None obtained. Patient discharged home 04/17/19. Objective: ROM: Right Lower Extremity: Hip flexion 0-100. Hip abduction WFL. Knee flexion WFL. Ankle dorsiflexion WFL. Ankle plantarflexion WFL. Left Lower Extremity: Hip flexion 0-110. Hip abduction WFL. Knee flexion WFL. Ankle dorsiflexion WFL. Ankle plantarflexion WFL. Strength: Right Lower Extremity: Hip flexors 3-/5. Hip abductors 3+/5. Knee flexors 3/5. Knee extensors 3/5. Ankle dorsiflexors 4-/5. Ankle plantarflexors 4-/5. Left Lower Extremity:Hip flexors 3-/5. Hip abductors 4-/5. Knee flexors 4-/5. Knee extensors 4-/5. Ankle dorsiflexors 4/5. Ankle plantarflexors 4/5. Sensation: Intact as to pain and pressure on bilateral lower extremities. Bed Mobility/Transfers: Supine to sit : independent with HOB flat Sit to supine : independent with HOB flat Sit to stand SBA Stand to sit SBA Bed to chair SBA Chair to bed SBA Gait: Patient ambulated up to 120' with FWW, SBA and cues for safety. Balance: Static Sitting: Good Dynamic Sitting: Good Static Standing: Fair Dynamic Standing: Fair Assessment: Patient is a 73-year-old female with diagnosis of dyspnea, tachycardia, hypertension, and toe abuse, lactic acidosis, and hypomagnesemia. Patient also has known and reported history of multiple falls. She participated in 7 PT sessions over the course of 5 days, with improvements in mobility and activity tolerance. She was discharged home with services on 04/17/19. Goals: Goals X1 week 1. Supine-Sit independent (MET) 2. Sit-Supine independent(MET) 3. Sit-Stand independent (PROGRESSING TOWARD) 4. Stand-Sit independent(PROGRESSING TOWARD) 5. Bed-Chair independent(PROGRESSING TOWARD) 6. Chair-Bed independent(PROGRESSING TOWARD) 7. Independent gait on level surface with use of least restrictive device for at least 300 feet without report of pain nor dyspnea(PROGRESSING TOWARD) 8. Independent stair negotiation while holding onto bilateral rails for at least 5 steps without report of pain nor dyspnea(PROGRESSING TOWARD) 9. Good static and dynamic standing balance/tolerance(PROGRESSING TOWARD) Plan of Care/Treatment Plan: D/C from PT services in acute care setting. DISCHARGE RECOMMENDATIONS:Home with ongoing community support. She will require PT to continue progress toward established goals. Mae Wallace, PT, DPT [facility]
== END 2019-04-17 15:35 | disposition home health service (06) | DRG 897 ==
LOC: ER 15:35 → ICU 16:24 → MS 04-14 14:06 → ICU 04-23 13:04
PROVIDERS: Internal Medicine; Admitting Provider Internal Medicine; Emergency Provider Physician Assistant; PCP Family Medicine; Visit Provider Internal Medicine
DX: F10.20 Alcohol dependence, uncomplicated (principal); E87.2 Acidosis; E86.0 Dehydration; I10 Essential (primary) hypertension; R00.0 Tachycardia, unspecified; R06.00 Dyspnea, unspecified; E83.42 Hypomagnesemia; S22.49XD Multiple fractures of ribs, unspecified side, subsequent encounter for fracture with routine healing; W19.XXXD Unspecified fall, subsequent encounter; Z91.81 History of falling; K21.9 Gastro-esophageal reflux disease without esophagitis; Z91.14 Patient's other noncompliance with medication regimen; S62.610A Displaced fracture of proximal phalanx of right index finger, initial encounter for closed fracture; W01.0XXA Fall on same level from slipping, tripping and stumbling without subsequent striking against object, initial encounter; Y92.230 Patient room in hospital as the place of occurrence of the external cause
CPT/HCPCS: 36415; 71275; 74177; 80048; 80053; 80307; 83690; 85027; 87077; 87081; 93005; 96361; 96374; 96375; 96376; 97110; 97162; 97166; 97530; 97535; 99221; 99222; 99232; 99238; 99285; 70450; 71046; 73130; 80320; 81003; 81015; 82140; 83605; 83735; 83880; 84439; 84443; 84484; 85025; 85379; 85610; 85730; 87086; 87186; 93010; 99284; J2060; J2270; J2405; J3480; J3490; L3908

== ENCOUNTER → 2019-05-01 10:08 | Outpatient (BNVA) | payer OTHER, SELFPAY | PROVIDERS: PCP Family Medicine; Referring Provider Family Medicine; Visit Provider Orthopaedic Surgery | DX: S62.600A Fracture of unspecified phalanx of right index finger, initial encounter for closed fracture (principal); W19.XXXA Unspecified fall, initial encounter | CPT/HCPCS: 99214 ==

== ENCOUNTER 2019-05-01 19:12 | Emergency (ER) | payer OTHER, SELFPAY ==
--- NOTE | 2019-05-01 19:07 | NUR.NOTE ---
Nursing Note: pt states that he had dialis this morning and at 1830 dialysis site started to bleed upon arrival bleeding had stopped
[2019-05-01 19:08] VITALS: BP 159/84; PULSE 98; RESP 18; TEMP 36.5; O2SAT 98
--- NOTE | 2019-05-01 19:18 | W.ED.GENAD ---
Discharge Plan Disposition Patient Disposition: HOME Condition: Fair Discharge Details Chief Complaint: Laceration Clinical Impression: Falling, Contusion of head Primary Care Provider: Lavelle Galindo ED Provider: Tash Servin Home Meds and New Rx's Prescriptions: Continued magnesium oxide 400 mg (241.3 mg magnesium) tablet 400 mg PO BID Qty: 180 RF: 3 acetaminophen [Tylenol Extra Strength] 500 mg tablet 1,000 mg PO Q8H PRN PRNRF: 0 lidocaine 5 % adhesive patch,medicated 1 patch TP DAILY RF: 0 gabapentin 300 mg capsule 300 mg PO BID Qty: 90 RF: 5 ondansetron 4 mg tablet,disintegrating 4 mg PO QID PRN (Reason: nausea and vomiting) Qty: 0 RF: 0 celecoxib [Celebrex] 100 mg capsule 100 mg PO DAILY PRN (Reason: pain) Qty: 30 RF: 2 metoprolol tartrate 50 mg tablet 50 mg PO BID Qty: 60 RF: 2 venlafaxine 150 mg capsule,extended release 24hr 37.5 mg PO QAM Qty: 0 RF: 0 folic acid 1 mg Tablet 1 mg PO DAILY Qty: 14 RF: 0 bisacodyl 10 mg Suppository 10 mg NJ PRN PRNRF: 0 amlodipine 10 mg Tablet 10 mg PO DAILY Qty: 0 RF: 0 pantoprazole 40 mg Tablet,Delayed Release (Dr/Ec) 40 mg PO DAILY@0730 Qty: 0 RF: 0 Discharge Instructions Instructions: Contusion in Adults (ED) Additional Instructions: Encourage water intake. Tylenol as needed for discomfort. Ice to affected area. If you develop increased pain, weakness, fevers/chills, vision changes or other new/worsening symptoms please seek care urgently once again. Please follow up with primary care in one week for reevaluation. Referrals: Lavelle Galindo [Primary Care Provider] - Medical Decision Making Patient is a 73 year old female, brought in via EMS, with c/c of right sided head trauma. Reports that prior ot arrival, she tripped over her small dog and fell striking the right side of her head on the ground. Denies LOC, good memory of the event. Patient lives alone with her small dog. Called EMS when she noted bleeding. She denies other injury at the time of the incident. Patient was evaluated by EMS, thought to have multiple lacerations. She does have notable contusion to the right parietal side of her scalp. She is not anticoagulated. Patient has a lengthy medical history including alcohol abuse, anemia, back pain, gastritis depression, GERD, headache, tubular adenoma of the colon, urinary incontinence, wearing the encephalopathy. She does report that she had a drink prior to arrival. I do not smell any alcohol or at this time. I seen the patient historically she seems to be at her baseline, does not appear intoxicated at this time. Mentating clearly, appropriate at the time of evaluation. On exam, patient has a 5 cm area of contusion and swelling to the right parietal scalp. She has dried blood across the scalp. Remaining trauma exam is otherwise benign. Plan for CT imaging. FINDINGS: Brain: No hemorrhage. No edema. There is moderate diffuse cerebral atrophy present, consistent with this patient's age.There is mild diffuse heterogeneity of the white matter attenuation, this change is nonspecific but is likely secondary to chronic ischemia within microvascular distributions. Ventricles: Normal in configuration. Compensatory dilatation. Bones/joints: Unremarkable. No acute fracture. Sinuses: Visualized sinuses are unremarkable. No fluid levels. Mastoid air cells: Visualized mastoid air cells are well aerated. Soft tissues: Right temporoparietal scalp hematoma containing small gas bubbles. Vasculature: Vascular calcifications. IMPRESSION: 1. No acute intracerebral findings. 2. Right temporoparietal scalp hematoma/laceration Discussed these findings with the patient. Cleaned of all of the dried blood, patient does not fact have a laceration but does have a small area of abrasion superior to the contusion. Patient son actively bleeding. Do not feel that intervention is needed at this time. Patient is mentating well, requesting discharge. Is worried about her animals. Patient is in our CT client, ride was arranged. She is given strict return precautions. All the questions and concerns were addressed and she is in agreement this plan. HPI General Mode of arrival: EMS. Date/Time Provider Initiated Documentation: 05/01/19 19:18. Limitations to Documentation: no limitations. Information obtained by: patient, EMS and RN notes reviewed. History of Present Illness 73 year old F presents to the emergency department with the chief complaint of right sided head pain after fall, described as moderate, with intensity rated at 7. Quality is described as aching, and is localized to the head. Patient reports no radiation. Patient started experiencing this minute(s) and it has been constant. No relieving factors improve symptom(s), No exacerbating factors reported . Patient notes headaches and rash (reports laceration); denies confusion, chest pain, cough, diaphoresis, fever/chills, loss of appetite, nausea/vomiting, seizure (denies LOC), shortness of breath and weakness. Patient did receive the following treatments prior to arrival, none Related Data Home Medications Medication Instructions Recorded Confirmed folic acid 1 mg PO DAILY #14 tab 08/11/18 05/01/19 magnesium oxide 400 mg (241.3 mg 400 mg PO BID #180 tab 11/22/18 05/01/19 magnesium) tablet acetaminophen 500 mg tablet 1,000 mg PO Q8H PRN PRN tab 04/10/19 05/01/19 lidocaine 5 % topical patch 1 patch TP DAILY 04/10/19 05/01/19 bisacodyl 10 mg NJ PRN PRN 04/11/19 05/01/19 amlodipine 10 mg PO DAILY #0 tab 04/17/19 05/01/19 pantoprazole 40 mg PO DAILY@0730 #0 tab 04/17/19 05/01/19 celecoxib 100 mg capsule 100 mg PO DAILY PRN #30 cap 04/27/19 05/01/19 gabapentin 300 mg capsule 300 mg PO BID #90 cap 04/27/19 05/01/19 metoprolol tartrate 50 mg tablet 50 mg PO BID #60 tab 04/27/19 05/01/19 ondansetron 4 mg disintegrating 4 mg PO QID PRN #0 tab 04/27/19 05/01/19 tablet venlafaxine 150 mg 37.5 mg PO QAM #0 cap 04/27/19 05/01/19 capsule,extended release 24 hr Previous Rx's Medication Instructions Recorded folic acid 1 mg PO DAILY #14 tab 08/11/18 magnesium oxide 400 mg (241.3 mg 400 mg PO BID #180 tab 11/22/18 magnesium) tablet amlodipine 10 mg PO DAILY #0 tab 04/17/19 pantoprazole 40 mg PO DAILY@0730 #0 tab 04/17/19 celecoxib 100 mg capsule 100 mg PO DAILY PRN #30 cap 04/27/19 gabapentin 300 mg capsule 300 mg PO BID #90 cap 04/27/19 metoprolol tartrate 50 mg tablet 50 mg PO BID #60 tab 04/27/19 ondansetron 4 mg disintegrating 4 mg PO QID PRN #0 tab 04/27/19 tablet venlafaxine 150 mg 37.5 mg PO QAM #0 cap 04/27/19 capsule,extended release 24 hr Allergies Allergy/AdvReac Type Severity Reaction Status Date / Time Penicillins Allergy Mild Rash Unverified 05/01/19 19:22 ramipril Allergy Unknown ITCHING Unverified 05/01/19 19:22 meperidine [From Demerol] AdvReac Severe Nausea Unverified 05/01/19 19:22 bupropion AdvReac Mild GI upset Unverified 05/01/19 19:22 AMBER Inhibitors AdvReac Unknown COUGH Unverified 05/01/19 19:22 alendronate sodium AdvReac Unknown GI Distress Unverified 05/01/19 19:22 clarithromycin AdvReac Unknown intolerant Unverified 05/01/19 19:22 paroxetine AdvReac Unknown Diarrhea Unverified 05/01/19 19:22 General Stated Complaint: Laceration JORDAN: 3 Review of Systems Constitutional Reports as per HPI, Denies chills, Denies fatigue, Denies fever(s), Reports headache(s) and Denies weakness Eyes Reports as per HPI, Denies blurry vision, Denies change in vision and Denies loss of vision ENT Denies abnormal hearing and Reports headache(s) Cardiovascular Reports as per HPI, Denies chest pain and Denies dyspnea Respiratory Reports as per HPI, Denies cough, Denies pain on inspiration, Denies pain with cough and Denies dyspnea Gastrointestinal Reports as per HPI, Denies abdominal pain, Denies nausea and Denies vomiting Genitourinary Reports as per HPI and Denies urinary incontinence Musculoskeletal Reports as per HPI Integumentary/Breasts Reports as per HPI and Reports wounds (bleeding from right side of head) Neurologic Reports as per HPI, Denies abnormal hearing, Denies abnormal movements, Denies abnormal speech, Reports headache(s), Denies lack of coordination, Denies focal weakness, Denies loss of vision, Denies seizure-like activity, Denies paresthesias and Denies weakness Endocrine Denies fatigue [facility] Medical History Alcohol abuse (Chronic) Alcoholic ketosis (Resolved) Allergic rhinitis (Chronic) Anemia (Chronic 12/20/16) Back pain, chronic (Chronic) Cataract (Chronic 11/07/15) Cervical radicular pain (Chronic) neck pain and [facility] Chronic alcoholic gastritis (Chronic 10/12/17) pls refrain from alcohol Depression (Chronic) Elev transaminase/LDH (Chronic) due to alcohol Falling (Chronic) Genital herpes simplex (Chronic) recurrent gential; suppressive Valtrex GERD (gastroesophageal reflux disease) (Chronic) GI bleed (Chronic 12/20/16) Headache (Chronic) Hyperlipidemia (Chronic) Hypertension (Chronic) high today; she will check readings at home 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 Multiple rib fractures (Acute) 03/11/19 [facility] Non-cardiac chest pain (Chronic 09/21/16) [facility] [place] 09/21/16 NEGATIVE MP Osteoarthritis (Chronic) Osteopenia (Chronic) 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) Pleural effusion on left (Chronic) 03/11/19 [facility] Right rib fracture (Resolved) Sciatica (Chronic) right, epidural injuections [facility] Tubular adenoma of colon (Chronic 01/28/17) Urinary incontinence (Chronic) 01/24/13 urethral suspension and sling at [facility] [place] (bladder suspension 1991) Wernicke encephalopathy (Chronic) Surgical History Bladder Surgery suspension Colonoscopy - MAC (01/28/17) EGD - MAC (12/20/16) Ligation of fallopian tube Repair bladder injury, simple Social History Smoking/Tobacco Use Status: Former Tobacco Use Alcohol Intake: former Drug use: Never Details: Do you feel safe at home: Yes Additional Social history: my caregiver is an anxiety attack person Exam Const General: cooperative, comfortable, no acute distress, well developed, disheveled, ill appearing chronically, does not appear intoxicated (patient reports she had a drink prior to arrival, does not smell of ETOH) and other (patient appears baseline from previous visit, does not appear intoxicated) Nutritional Appearance: average body habitus and well nourished Orientation: alert, awake and oriented x3 HENMT Head: no palpable skull fracture, normocephalic, no Valentine's sign, contusion right parietal 1.97 in, no lacerations, no palpable skull fracture, no raccoon eyes, scalp lesion (abrasion superior to contusion) and No periorbital ecchymosis Ears: hearing grossly normal bilaterally, external ears normal and TM's normal bilaterally General nose exam: external nose normal Mouth: oral mucosae normal, lip normal, tongue normal and No moist mucous membranes abnormal (appears dry) Throat: posterior oropharynx normal Eyes General: appearance normal, both eyes and all related structures Visual Gatica: normal visual gatica by confrontation Alignment and Position: alignment normal Periorbital: periorbital findings normal Eyelids: eyelids normal Conjunctivae: conjunctivae normal Pupils: PERRL EOM: EOM intact bilaterally Neck Neck: normal visual inspection, full ROM, no lymphadenopathy, no meningeal signs, trachea midline and supple Chest Chest: normal inspection of the chest, normal palpation of entire chest wall, no crepitus and no localized rib tenderness Resp Effort & Inspection: normal respiratory effort, able to speak in complete sentences and no respiratory distress Auscultation: clear to auscultation bilaterally, no rales, no rhonchi and no wheezes Cardio Rate: regular rate Rhythm: regular rhythm Heart Sounds: S1 normal and S2 normal GI Inspection: normal to inspection, no abdominal wall ecchymosis, no edema and distended (patient reports that her round, distended abdomen is baseline, no pain) Palpation: soft, not firm, no guarding, no pulsatile masses, not rigid and nontender Back/Spine/Pelvis Back: no CVA tenderness Cervical Spine: normal cervical lordosis and cervical ROM normal Thoracic/Lumbar Spine: thoracic and lumbar spine normal to inspection, thoraco-lumbar ROM normal, No thoraco-lumbar ROM limited, No thoraco-lumbar spasm and No thoracic spinal tenderness Pelvis: no pain with anterior-posterior compression and no pain with lateral compression Skin Trauma: abrasion (1cm abrasion to scalp as above, no laceration seen) Neuro General: alert, awake, oriented x3, gait normal, tone normal and moves all extremities Cranial Nerves: CN's II-XI intact bilaterally Cognition: normal cognition Speech: speech normal Motor: muscle tone normal throughout and strength 5/5 throughout Sensory Exam: no sensory deficits noted (no saddle paresthesias) Extrem General: normal to inspection, full ROM, normal capillary refill, no pedal edema and no calf tenderness Psych Appearance: grossly normal and well kempt Mental Status: mental status grossly normal Speech and Movement: speech and movement normal
--- NOTE | 2019-05-01 19:42 | DI.CT_ITS ---
SYMPTOMS/DIAGNOSIS: FALL NONCONTRAST HEAD CT: Comparison is made with [id number]. No intracranial hemorrhage or skull fracture is seen. There is a right sided scalp hematoma. The ventricles are normal in size. There is no evidence of mass or infarct. There is atrophy, consistent with the patient's age. IMPRESSION: Scalp hematoma. No acute intracranial abnormality.
--- NOTE | 2019-05-01 20:33 | DI.VRAD_ITS ---
EXAM: CT Head Without Contrast EXAM DATE/TIME: 05/01/2019 7:46 PM CLINICAL HISTORY: 73 years old, female; Injury or trauma; Fall; Initial encounter; Blunt trauma (contusions or hematomas); Consciousness not specified; Injury date: 05/01/19; Injury details: Tripped over dog and hit head, R sided laceration TECHNIQUE: Imaging protocol: Computed tomography of the head without contrast. Radiation optimization: All CT scans at this facility use at least one of these dose optimization techniques: automated exposure control; mA and/or kV adjustment per patient size (includes targeted exams where dose is matched to clinical indication); or iterative reconstruction. COMPARISON: CT HEAD CERVICAL SPINE WO 01/17/2019 6:35 AM FINDINGS: Brain: No hemorrhage. No edema. There is moderate diffuse cerebral atrophy present, consistent with this patient's age.There is mild diffuse heterogeneity of the white matter attenuation, this change is nonspecific but is likely secondary to chronic ischemia within microvascular distributions. Ventricles: Normal in configuration. Compensatory dilatation. Bones/joints: Unremarkable. No acute fracture. Sinuses: Visualized sinuses are unremarkable. No fluid levels. Mastoid air cells: Visualized mastoid air cells are well aerated. Soft tissues: Right temporoparietal scalp hematoma containing small gas bubbles. Vasculature: Vascular calcifications. IMPRESSION: 1. No acute intracerebral findings. 2. Right temporoparietal scalp hematoma/laceration Dictated and Authenticated by: Yinka Garland MD. Ordering:BECKIE Bianchi MD
[2019-05-01 22:05] VITALS: BP 154/68; PULSE 98; RESP 18; TEMP 36.7; O2SAT 98
--- NOTE | 2019-05-02 16:39 | PT.INNT ---
Date of service: 05/02/19 Time of Service: 16:39 PT Notes Patient is a 73-year-old female patient at the ED with minimally displaced clavicular fracture on the R sustained from a fall last night who is referred to physical therapy for fall safety assessment. Patient was admitted for observation as of 16:26 PM today and will be evaluated as soon as another referral for physical therapy services is received. Thank you very much for this referral. Tawana Cruz PT, DPT, CLT [facility]
== END 2019-05-01 22:54 | disposition home or self-care (01) ==
PROVIDERS: Emergency Provider Physician Assistant; PCP Family Medicine
DX: S00.03XA Contusion of scalp, initial encounter (principal); W01.0XXA Fall on same level from slipping, tripping and stumbling without subsequent striking against object, initial encounter; I10 Essential (primary) hypertension
CPT/HCPCS: 99284; 70450

== ENCOUNTER 2019-05-02 09:04 | Observation (INO) | payer OTHER, SELFPAY ==
[2019-05-02] VITALS (29 sets, daily range): BP systolic 158–187; BP diastolic 80–118; PULSE 94–128; RESP 16–28; TEMP 36.4–37.5; O2SAT 93–98
--- NOTE | 2019-05-02 09:15 | DI.RAD_ITS ---
SYMPTOMS/DIAGNOSIS: PAIN, S/P FALL RIGHT SHOULDER: Comparison is made with chest x-ray of [id number]. There is a fracture of the distal right clavicle with mild comminution and inferior displacement of the distal fragments. There is no glenohumeral joint dislocation or AC joint widening. There is a small calcification near the humeral head which could indicate calcific tendinosis. There are old upper right rib fractures. IMPRESSION: Mildly comminuted displaced fracture of the distal clavicle.
--- NOTE | 2019-05-02 09:21 | ED.GENADUL_ITS ---
Discharge Plan Disposition Patient Disposition: HOME Condition: Stable Discharge Details Chief Complaint: GenMedical Clinical Impression: Alcohol abuse, Fracture of right clavicle Primary Care Provider: Lavelle Galindo ED Provider: Blaze Mccarthy Home Meds and New Rx's Prescriptions: Continued magnesium oxide 400 mg (241.3 mg magnesium) tablet 400 mg PO BID Qty: 180 RF: 3 acetaminophen [Tylenol Extra Strength] 500 mg tablet 1,000 mg PO Q8H PRN PRNRF: 0 lidocaine 5 % adhesive patch,medicated 1 patch TP DAILY RF: 0 gabapentin 300 mg capsule 300 mg PO BID Qty: 90 RF: 5 ondansetron 4 mg tablet,disintegrating 4 mg PO QID PRN (Reason: nausea and vomiting) Qty: 0 RF: 0 celecoxib [Celebrex] 100 mg capsule 100 mg PO DAILY PRN (Reason: pain) Qty: 30 RF: 2 metoprolol tartrate 50 mg tablet 50 mg PO BID Qty: 60 RF: 2 venlafaxine 150 mg capsule,extended release 24hr 37.5 mg PO QAM Qty: 0 RF: 0 folic acid 1 mg Tablet 1 mg PO DAILY Qty: 14 RF: 0 bisacodyl 10 mg Suppository 10 mg OR PRN PRNRF: 0 amlodipine 10 mg Tablet 10 mg PO DAILY Qty: 0 RF: 0 pantoprazole 40 mg Tablet,Delayed Release (Dr/Ec) 40 mg PO DAILY@0730 Qty: 0 RF: 0 Discharge Instructions Instructions: Clavicle Fracture (ED) Additional Instructions: call orthopedics tomorrow morning for an appointment for your clavicle fracture follow up with your primary care provider within 1-2 weeks if you feel you are becoming more ill, have high fevers or persistent vomit return to the emergency department Medical Decision Making 73 yo female with hx of alcohol abuse, htn, who comes in with chief complaint of right shoulder pain. She had a fall last night for which she was seen here and had ct head that was negative. She states she has had the pain since last night and states she didn't tell the provider about it last night for unclear reasons. Denies new falls. She has pain with palpation to the right anterior shoulder without palpable for visible deformity and can't move the shoulder due to pain. no chest pain or neck pain, has no pain over elbow, mid/distal humerus, forearm, wrist or hand with intact distal sensation and pulses. will xray the shoulder to eval for fx. She is also noted to be tachycardic and is having dry heaving without abodminal tenderness and hasn't had alcohol since last night so I suspect she is in withdrawal, will treat with benzos and banana bag and reassess. Denies any chest pain or pressure so odubt acs as cause of her dry heaving at this time pt remains stable, sleeping now with HR in the 90's without evidence of withdrawal. Xray shows distal clavicle fracture. Will have nursing place in ing. I do not feel that she requires admission but has been weak but is declining referral to rehab/group home and has capacity to make her own decisions. She is willing to meet with palliative care as an outpaitent given her frequent ed visits, falls and discuss her goals. Return precautions given pt has decided she would like to go to rehab. patient care specialist consulted and will discuss options with patient. Differential Diagnosis fracture, contusion, withdrawal Imaging Data Radiologic Study: Attestation: I personally reviewed and interpreted this imaging study as follows: Imaging: X-Ray Radiologist's impression: IMPRESSION: Mildly comminuted displaced fracture of the distal clavicle. Lab Data Lab results reviewed: Yes I reviewed the patient's lab results. HPI General Mode of arrival: wheelchair . Date/Time Provider Initiated Documentation: 05/02/19 09:05 . Limitations to Documentation: no limitations . Information obtained by: patient . History of Present Illness 73 year old F presents to the emergency department with the chief complaint of right shoulder pain, described as moderate, Quality is described as aching, and is localized to the right and upper extremity. Patient started experiencing this day(s) (1) and it has been constant. Rest improves symptom(s), Movement worsens symptoms . Patient did receive the following treatments prior to arrival, none Related Data Home Medications Medication Instructions Recorded Confirmed folic acid 1 mg PO DAILY #14 tab 08/11/18 05/01/19 magnesium oxide 400 mg (241.3 mg 400 mg PO BID #180 tab 11/22/18 05/01/19 magnesium) tablet acetaminophen 500 mg tablet 1,000 mg PO Q8H PRN PRN tab 04/10/19 05/01/19 lidocaine 5 % topical patch 1 patch TP DAILY 04/10/19 05/01/19 bisacodyl 10 mg OR PRN PRN 04/11/19 05/01/19 amlodipine 10 mg PO DAILY #0 tab 04/17/19 05/01/19 pantoprazole 40 mg PO DAILY@0730 #0 tab 04/17/19 05/01/19 celecoxib 100 mg capsule 100 mg PO DAILY PRN #30 cap 04/27/19 05/01/19 gabapentin 300 mg capsule 300 mg PO BID #90 cap 04/27/19 05/01/19 metoprolol tartrate 50 mg tablet 50 mg PO BID #60 tab 04/27/19 05/01/19 ondansetron 4 mg disintegrating 4 mg PO QID PRN #0 tab 04/27/19 05/01/19 tablet venlafaxine 150 mg 37.5 mg PO QAM #0 cap 04/27/19 05/01/19 capsule,extended release 24 hr Previous Rx's Medication Instructions Recorded folic acid 1 mg PO DAILY #14 tab 08/11/18 magnesium oxide 400 mg (241.3 mg 400 mg PO BID #180 tab 11/22/18 magnesium) tablet amlodipine 10 mg PO DAILY #0 tab 04/17/19 pantoprazole 40 mg PO DAILY@0730 #0 tab 04/17/19 celecoxib 100 mg capsule 100 mg PO DAILY PRN #30 cap 04/27/19 gabapentin 300 mg capsule 300 mg PO BID #90 cap 04/27/19 metoprolol tartrate 50 mg tablet 50 mg PO BID #60 tab 04/27/19 ondansetron 4 mg disintegrating 4 mg PO QID PRN #0 tab 04/27/19 tablet venlafaxine 150 mg 37.5 mg PO QAM #0 cap 04/27/19 capsule,extended release 24 hr Allergies Allergy/AdvReac Type Severity Reaction Status Date / Time Penicillins Allergy Mild Rash Unverified 05/02/19 09:16 ramipril Allergy Unknown ITCHING Unverified 05/02/19 09:16 meperidine [From Demerol] AdvReac Severe Nausea Unverified 05/02/19 09:16 bupropion AdvReac Mild GI upset Unverified 05/02/19 09:16 AMBER Inhibitors AdvReac Unknown COUGH Unverified 05/02/19 09:16 alendronate sodium AdvReac Unknown GI Distress Unverified 05/02/19 09:16 clarithromycin AdvReac Unknown intolerant Unverified 05/02/19 09:16 paroxetine AdvReac Unknown Diarrhea Unverified 05/02/19 09:16 General Stated Complaint: GenMedical JORDAN: 3 Review of Systems Review of Systems All systems reviewed & are unremarkable except as noted in HPI and below Constitutional Denies chills, Denies fever(s) and Denies weakness Cardiovascular Denies chest pain and Denies dyspnea Respiratory Denies cough and Denies dyspnea Gastrointestinal Denies abdominal pain, Denies nausea and Denies vomiting Musculoskeletal Denies joint swelling Neurologic Denies weakness PFS Social History Smoking/Tobacco Use Status: Former Tobacco Use Alcohol Intake: former Drug use: Never Details: APtient states her last alcohol intake was 2 days ago Do you feel safe at home: Yes Additional Social history: my caregiver is an anxiety attack person Exam Const General: disheveled Orientation: alert HENMT Head: normal to inspection Ears: external ears normal General nose exam: external nose normal Mouth: moist mucous membranes Eyes General: appearance normal, both eyes and all related structures Neck Neck: normal visual inspection Resp Effort & Inspection: normal respiratory effort and able to speak in complete sentences Cardio Rate: regular rate Skin General skin exam: no rashes or lesions noted Neuro General: alert and oriented x3 Extrem General: normal capillary refill Psych Mental Status: mental status grossly normal Course Vital Signs Temperature 36.4 C L 05/02/19 09:12 Pulse 128 H 05/02/19 09:12 Respiratory Rate 18 05/02/19 09:12 Blood Pressure 167/87 H 05/02/19 09:12 Pulse Oximetry 98 05/02/19 09:12 Temperature 36.4 C L 05/02/19 09:12 Temperature Source Tympanic 05/02/19 09:12 Pulse 128 H 05/02/19 09:12 Respiratory Rate 18 05/02/19 09:12 Respiratory Effort Non-Labored 05/02/19 09:17 Blood Pressure 167/87 H 05/02/19 09:12 Blood Pressure Position Supine 05/02/19 09:12 Pulse Oximetry 98 05/02/19 09:12 Oxygen Delivery Method Room Air 05/02/19 09:12 Oxygen Flow Rate 0 05/02/19 09:12 Pain Level 10 04/19 09:12
[2019-05-02 10:09] LABS: Abs Immature Grans 0.01 k/cumm (0.0-0.09); Absolute Basophil Count 0.02 k/cumm (0.0-0.2); Absolute Lymphocyte Count 0.69 k/cumm (1.2-3.4); Absolute Monocyte Count 0.49 k/cumm (0.11-0.7); Absolute Neutrophil Count 5.45 k/cumm (1.2-6.7); Basophils % 0.3; HCT 35.7 % (36.0-46.0); HGB 11.6 g/dL (12.0-15.5); Immature Grans % 0.2; Lymphocytes % 10.4; Mean Corp. HGB Concentration 32.5 g/dL (32.0-36.0); Mean Corpuscular Volume 95.5 fL (80-95); Mean Platelet Volume 9.3 fL (8.0-11.0); Monocytes % 7.4; Neutrophils % 81.7; Platelet Count 235 x1000/uL (130-400); RBC 3.74 m/cumm (4.00-5.20); RBC Distribution Width 16.8 % (11.7-14.6); White Blood Cell Count 6.66 k/cumm (4.4-10.8)
[2019-05-02] MEDS: LORazepam 2 MG/ML VIAL IVP (10:20)
[2019-05-02] MEDS: Normal Saline 1,000 ML 1000 ML IV (10:22)
[2019-05-02 10:24] LABS: PTT Activated 23.2 sec (21.0-31.4); Prothrombin Time 10.4 sec (9.3-11.0)
[2019-05-02 10:25] LABS: ALT 45 U/L (14-59); AST 46 U/L (15-37); Alkaline Phosphatase 183 U/L (46-116); Anion Gap 14.1 mmol/L (3-11); BUN 9 mg/dL (7-18); Bilirubin, Direct 0.55 mg/dL (0.00-0.20); Bilirubin, Total 2.3 mg/dL (0.2-1.0); CO2 24.9 mmol/L (21.0-32.0); CREATININE 0.85 mg/dL (0.55-1.02); Calcium 8.9 mg/dL (8.5-10.1); Chloride 104 mmol/L (98-107); Glucose 137 mg/dL (70-100); Magnesium 1.1 mg/dL (1.8-2.4); Potassium 3.1 mmol/L (3.5-5.1); Sodium 143 mmol/L (136-145); Total Protein 6.7 g/dL (6.4-8.2)
[2019-05-02] MEDS: Acetaminophen 500 MG TAB 1000 MG PO (10:34)
[2019-05-02 10:39] LABS: ETHANOL BLOOD < 3.0 mg/dL (<3)
[2019-05-02] MEDS: MAGNESIUM SULFATE 8.12 MEQ, MULTIVITAMIN 10 ML, THIAMINE 100 MG, FOLIC ACID 1 MG in Nor... 1000 MG IV (11:24)
--- NOTE | 2019-05-02 18:26 | NUR.NOTE ---
Nursing Note: Attempted to do med rec with pt- unable to state what medications she takes or what they are for. Accompanying friend Armida states that Leticia has not taken any medications as prescribed since she was discharged from this Hospital a few weeks ago.
--- NOTE | 2019-05-02 19:31 | HPE_ITS ---
Date of service: 05/02/19 Time of Service: 19:32 Assessment and Plan (1) Fracture of clavicle, right, closed: Current visit: Yes Status: Acute sling and swath, NSAID analgesics, ice compresses Qualifiers: Clavicle location: lateral end Encounter type: initial encounter Fracture alignment: displaced Qualified Code(s): S42.031A - Displaced fracture of lateral end of right clavicle, initial encounter for closed fracture (2) Hypomagnesemia: Current visit: No Status: Acute multiple causes including chronic PPI use along w/ alcoholism and poor nutrition. I will continue to replace per IV overnight, continue her home dose of magnesium and recheck levels in the a.m. (3) Alcohol abuse: Current visit: No Status: Chronic monitor for withdrawal per CIWA scoring, however, it should be noted that in the past she has had CIWA scores that would suggest withdrawal when in fact she was not withdrawing. Her tachycardia and hypertension can be explained by her medication non-compliance with her amlodipine and lopressor. (4) Hypertension: Current visit: No Status: Chronic resume her amlodipine and metoprolol. monitor her bp. Qualifiers: Hypertension type: essential hypertension Qualified Code(s): I10 - Essential (primary) hypertension (5) Hypokalemia: Current visit: No Status: Acute replace w/ oral and iv supplementation, correct her hypomagnesemia; monitor levels History of Present Illness Chief Complaint: right shoulder pain Narrative: 73 y/o F with PMH alcohol abuse and multiple admissions for alcohol withdrawal, HTN, chronic pain, depression and frequent falls due to inebriation and recent admission to [facility] f rom 03/11-03/21 with rib fractures and hemothorax following mechanical fall requiring chest tube who was just discharged from [facility] 04/17/2019 after hospitalized for dyspnea, tachycardia, and hypertension. Initially concern was raised for recurrent acute alcohol withdrawal but eventually was concluded that she was hypertensive and tachycardic due to dehydration and poor medication compliance w/ her beta blockers. She did exhibit alcoholic lactic acidosis which corrected w/ hydration and hypomagnesemia which she has chronically. She returned to the ER last night after yet another fall, allegedly over her dog, and she sustained a right temporal soft tissue hematoma but no evidence for ICH per CT. She was discharged home but now returns to the ER w/ c/o of right shoulder pain and has been found by xray to have a comminuted distal right clavicle fracture. Because the patient lives alone and has been found by caregivers to not be taking care of herself including not taking her medications and not eating, attempts were made from the ER today to try to place her in a SNF for short term rehabilitation. [facility] ([facility]) has accepted the patient but could not take the patient this afternoon/evening and therefore she is placed for observation status at [facility] while we have P.T. and CM work with her. Her right arm was put in sling. Labs done in the ER reveal recurrent hypokalemia of 3.1 and hypomagnesemia of 1.1, chronically elevated mildly elevated LFT's and a chronic anemia 11.6 gm/HCT 35%. MIGUELINA was <3. Patient was given ativan 2 mg IV for anxiety, 1 L of NS IV bolus and a banana bag of MVS, thiamine, folic acid and magnesium as well as Tylenol 1 gm for her pain. She is now admitted overnight pending [facility] tomorrow. We will continue to hydrate her and give her additional potassium and magnesium as well as folic acid and thiamine and MVS and monitor for signs/symptoms of withdrawal. Her amlodipine and lopressor will be restarted to control her BP. I will recheck her labs in the a.m. 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; only sees shadows) [facility] Medical History (Updated 05/02/19 @ 20:15 by Gwyn Blake) Alcohol abuse (Chronic) Alcoholic ketosis (Resolved) Allergic rhinitis (Chronic) Anemia (Chronic 12/20/16) Back pain, chronic (Chronic) Cataract (Chronic 11/07/15) Cervical radicular pain (Chronic) neck pain and [facility] Chronic alcoholic gastritis (Chronic 10/12/17) pls refrain from alcohol Corneal ulcer, right (Inactive ~08/23/18) 08/23/18; UV-kb Depression (Chronic) Elev transaminase/LDH (Chronic) due to alcohol Falling (Chronic) Genital herpes simplex (Chronic) recurrent gential; suppressive Valtrex GERD (gastroesophageal reflux disease) (Chronic) GI bleed (Chronic 12/20/16) Headache (Chronic) Hyperlipidemia (Chronic) Hypertension (Chronic) high today; she will check readings at home 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 Multiple rib fractures (Acute) 03/11/19 [facility] Non-cardiac chest pain (Chronic 09/21/16) [facility] 09/21/16 NEGATIVE MP Osteoarthritis (Chronic) Osteopenia (Chronic) 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) Pleural effusion on left (Chronic) 03/11/19 [facility] Right rib fracture (Resolved) Sciatica (Chronic) right, epidural injuections [facility] Tendinitis of left rotator cuff (Inactive) Tubular adenoma of colon (Chronic 01/28/17) Urinary incontinence (Chronic) 01/24/13 urethral suspension and sling at [facility] (bladder suspension 1991) Wernicke encephalopathy (Chronic) Surgical History Bladder Surgery suspension Colonoscopy - [facility] (01/28/17) EGD - [facility] (12/20/16) Ligation of fallopian tube Repair bladder injury, simple Family History Mother No problems noted. Father , DROWNED at age 50. No problems noted. Sister Personal history of malignant neoplasm MELANOMA Sister No problems noted. Grandfather Personal history of malignant neoplasm STOMACH Grandfather Personal history of malignant neoplasm PROSTATE Grandmother Heart disease ME Acute ill-defined cerebrovascular disease Grandmother Personal history of malignant neoplasm UTERINE Aunt , ME Heart disease ME Aunt , ME Heart disease Brother No problems noted. Social History Smoking/Tobacco Use Status: Former Tobacco Use Alcohol Intake: former Drug use: Never Details: APtient states her last alcohol intake was 2 days ago Do you feel safe at home: Yes Additional Social history: my caregiver is an anxiety attack person Meds Home Medications Medication Instructions Recorded Confirmed Type folic acid 1 mg PO DAILY #14 tab 08/11/18 05/02/19 Rx magnesium oxide 400 mg (241.3 mg 400 mg PO BID #180 tab 11/22/18 05/02/19 Rx magnesium) tablet acetaminophen 500 mg tablet 1,000 mg PO Q8H PRN PRN tab 04/10/19 05/02/19 History lidocaine 5 % topical patch 1 patch TP DAILY 04/10/19 05/02/19 History bisacodyl 10 mg CA PRN PRN 04/11/19 05/02/19 History amlodipine 10 mg PO DAILY #0 tab 04/17/19 05/02/19 Rx pantoprazole 40 mg PO DAILY@0730 #0 tab 04/17/19 05/02/19 Rx celecoxib 100 mg capsule 100 mg PO DAILY PRN #30 cap 04/27/19 05/02/19 Rx gabapentin 300 mg capsule 300 mg PO BID #90 cap 04/27/19 05/02/19 Rx metoprolol tartrate 50 mg tablet 50 mg PO BID #60 tab 04/27/19 05/02/19 Rx ondansetron 4 mg disintegrating 4 mg PO QID PRN #0 tab 04/27/19 05/02/19 Rx tablet venlafaxine 150 mg 150 mg PO QAM #0 cap 04/27/19 05/02/19 Rx capsule,extended release 24 hr Allergies Allergy/AdvReac Type Severity Reaction Status Date / Time Penicillins Allergy Mild Rash Unverified 05/02/19 09:16 ramipril Allergy Unknown ITCHING Unverified 05/02/19 09:16 meperidine [From Demerol] AdvReac Severe Nausea Unverified 05/02/19 09:16 bupropion AdvReac Mild GI upset Unverified 05/02/19 09:16 AMBER Inhibitors AdvReac Unknown COUGH Unverified 05/02/19 09:16 alendronate sodium AdvReac Unknown GI Distress Unverified 05/02/19 09:16 clarithromycin AdvReac Unknown intolerant Unverified 05/02/19 09:16 paroxetine AdvReac Unknown Diarrhea Unverified 05/02/19 09:16 Exam Const General: cooperative, no acute distress, well developed and not anxious Nutritional Appearance: average body habitus Orientation: alert, awake and oriented x3 HENMT Head: hematoma right parietal and scalp lesion right parietal other (laceration and hematoma) Chest Chest: tenderness clavicle on the right distal clavicular Resp Effort & Inspection: normal respiratory effort and able to speak in complete sentences Auscultation: clear to auscultation bilaterally Cardio Jugular venous pressure: no JVD Palpation: normal PMI Rate: regular rate Rhythm: regular rhythm Heart Sounds: S1 normal, S2 normal and normal, physiologic split S2 Pulses: normal peripheral pulses GI Inspection: obesity Palpation: soft and no hepatosplenomegaly Percussion: normal to percussion Auscultation: normal bowel sounds Back/Spine/Pelvis Cervical Spine: normal cervical lordosis Thoracic/Lumbar Spine: thoracic and lumbar spine normal to inspection Skin Wounds: wounds noted right parietal region other (small laceration/abrasion that is closed and scabbed over) Neuro General: alert, awake, oriented x3 and no focal motor deficits (RUE motor exam limited d/t clavicle fracture but normal hand and wrist move) Cranial Nerves: CN's II-XI intact bilaterally (except marked decr. vision in O.D.), EOM intact bilaterally and no nystagmus Cognition: normal cognition Speech: speech normal Gait: normal gait Motor: muscle tone normal throughout and no movement abnormalities noted Sensory Exam: no sensory deficits noted Extrem Right upper extremity: shoulder/upper arm Details: tenderness Location: of the clavicle Laterality: laterally, wrist Details: normal to inspection and normal ROM and hand Details: abnormal ROM of finger (right index and middle finger are kaitlin taped) Left upper extremity: normal to inspection, full ROM and normal capillary refill Right lower extremity: normal to inspection, full ROM and normal capillary refill; no edema Left lower extremity: normal to inspection, full ROM and normal capillary refill; no edema Psych Appearance: grossly normal Mental Status: mental status grossly normal Speech and Movement: speech and movement normal Mood: congruent mood Affect: normal affect Attitude: cooperative Thought Process: normal Thought Content: normal Insight: fair Judgment: fair Results Labs : 05/02/19 09:53 05/02/19 09:53 Laboratory Results - last 24 hr 05/02/19 05/02/19 05/02/19 09:53 09:53 09:53 WBC 6.66 RBC 3.74 L Hgb 11.6 L Hct 35.7 L MCV 95.5 H MCH 31.0 MCHC 32.5 RDW 16.8 H Plt Count 235 MPV 9.3 Immature Gran % 0.2 Neutrophils % 81.7 Lymphocytes % 10.4 Monocytes % 7.4 Eosinophils % 0.0 Basophils % 0.3 Absolute Neutrophils 5.45 Absolute Lymphocytes 0.69 L Absolute Monocytes 0.49 Absolute Eosinophils 0.00 Absolute Basophils 0.02 PT 10.4 INR 1.0 APTT 23.2 Sodium 143 Potassium 3.1 L Chloride 104 Carbon Dioxide 24.9 Anion Gap 14.1 H BUN 9 Creatinine 0.85 Estimated GFR/1.73 m2 >= 60.00 Glucose 137 H Calcium 8.9 Magnesium 1.1 L Total Bilirubin 2.3 H Conjugated Bilirubin 0.55 H AST 46 H ALT 45 Alkaline Phosphatase 183 H Total Protein 6.7 Albumin 3.0 L Ethyl Alcohol < 3.0 Last Vital Signs Temp 37.5 C 05/02/19 18:28 Pulse 117 H 05/02/19 18:28 Resp 20 05/02/19 18:28 BP 183/118 H 05/02/19 18:28 Pulse Ox 97 05/02/19 18:28
[2019-05-02] MEDS: Acetaminophen 325 MG TAB PO (20:20)
[2019-05-02] MEDS: Gabapentin 300 MG CAP PO (20:21)
[2019-05-02] MEDS: Metoprolol 50 MG TAB PO (20:21)
[2019-05-02] MEDS: Potassium Chloride 20 MEQ TABCR 40 MEQ PO (20:21)
[2019-05-02] MEDS: Magnesium Oxide 400 MG TAB PO (20:21)
[2019-05-02] MEDS: Thiamine 100 MG TAB PO (20:47)
[2019-05-02] MEDS: MAGNESIUM SULFATE 4 GM/100 ML BAG IVPB (21:08)
[2019-05-02] MEDS: Normal Saline Flush 10 ML SYR IVP (21:10)
[2019-05-03] MEDS: POTASSIUM CHLORIDE/D5-0.45NACL 1,000 ML 85 MEQ IV (05:27)
[2019-05-03] MEDS: Normal Saline Flush 10 ML SYR IVP (05:28)
[2019-05-03] MEDS: Acetaminophen 500 MG TAB 1000 MG PO (06:55)
[2019-05-03] MEDS: Pantoprazole 40 MG TABCR PO (06:55)
[2019-05-03 07:20] VITALS: BP 128/66; PULSE 63; RESP 18; TEMP 36.7; O2SAT 98
[2019-05-03 07:37] LABS: Absolute Basophil Count 0.01 k/cumm (0.0-0.2); Absolute Lymphocyte Count 1.03 k/cumm (1.2-3.4); Absolute Monocyte Count 0.37 k/cumm (0.11-0.7); Absolute Neutrophil Count 3.37 k/cumm (1.2-6.7); Basophils % 0.2; HCT 38.3 % (36.0-46.0); HGB 12.4 g/dL (12.0-15.5); Lymphocytes % 21.1; Mean Corp. HGB Concentration 32.4 g/dL (32.0-36.0); Mean Corpuscular Hemoglobin 31.3 pg (27.0-33.0); Mean Corpuscular Volume 96.7 fL (80-95); Mean Platelet Volume 9.4 fL (8.0-11.0); Monocytes % 7.6; Neutrophils % 69.1; Platelet Count 194 x1000/uL (130-400); RBC 3.96 m/cumm (4.00-5.20); RBC Distribution Width 16.4 % (11.7-14.6); White Blood Cell Count 4.88 k/cumm (4.4-10.8)
[2019-05-03] MEDS: Magnesium Oxide 400 MG TAB PO (07:42)
[2019-05-03] MEDS: Folic Acid 1 MG TAB PO (07:42)
[2019-05-03] MEDS: Potassium Chloride 10 MEQ TABCR 20 MEQ PO (07:42)
[2019-05-03] MEDS: Metoprolol 50 MG TAB PO (07:42)
[2019-05-03] MEDS: Venlafaxine 150 MG CAPCR PO (07:42)
[2019-05-03] MEDS: Thiamine 100 MG TAB PO (07:42)
[2019-05-03] MEDS: amLODIPine 10 MG TAB PO (07:42)
[2019-05-03] MEDS: Gabapentin 300 MG CAP PO (07:42)
[2019-05-03] MEDS: Multivitamin TAB 1 TAB PO (07:43)
[2019-05-03] MEDS: Lidocaine 5% Patch 1 PATCH TP (07:43)
[2019-05-03 08:02] LABS: Anion Gap 8.6 mmol/L (3-11); BUN 6 mg/dL (7-18); CO2 28.4 mmol/L (21.0-32.0); CREATININE 0.73 mg/dL (0.55-1.02); Calcium 9.1 mg/dL (8.5-10.1); Chloride 104 mmol/L (98-107); Glucose 130 mg/dL (70-100); Magnesium 2.5 mg/dL (1.8-2.4); Potassium 3.6 mmol/L (3.5-5.1); Sodium 141 mmol/L (136-145)
[2019-05-03 08:06] LABS: ALT 40 U/L (14-59); AST 39 U/L (15-37); Alkaline Phosphatase 184 U/L (46-116); Bilirubin, Total 2.3 mg/dL (0.2-1.0); Total Protein 6.6 g/dL (6.4-8.2)
[2019-05-03] MEDS: Potassium Chloride 20 MEQ TABCR 40 MEQ PO (10:02)
--- NOTE | 2019-05-03 12:19 | IN_ITS ---
Date of service: 05/03/19 Time of Service: 10:09 PT Notes Inpatient Physical Therapy Evaluation Date: 05/03/19 Referring Doctor: KERI Vazquez PT Orders: PT CONSULT: Routine? Precautions: Fall. Standard. Activity as tolerated. Patient Profile/Admitting Diagnosis: Patient is a 74-year-old female with past medical history significant for ETOH abuse, back pain, depression, and frequent falling who presented to the ED 05/02/2019 with chief complaints of right shoulder pain resultiung from a mechanical fall. Patient is diagnosed with ETOH withrawal and with mildly comminuted /mildly displaced distal clavicular fracture on the right side. PMHX: Medical History Alcohol abuse (Chronic) Alcoholic ketosis (Resolved) Allergic rhinitis (Chronic) Anemia (Chronic 12/20/16) Back pain, chronic (Chronic) Cataract (Chronic 11/07/15) Cervical radicular pain (Chronic) Chronic alcoholic gastritis (Chronic 10/12/17) Depression (Chronic) Elev transaminase/LDH (Chronic) Falling (Chronic) Genital herpes simplex (Chronic) GERD (gastroesophageal reflux disease) (Chronic) GI bleed (Chronic 12/20/16) Headache (Chronic) Hyperlipidemia (Chronic) Hypertension (Chronic) Macrocytosis (Chronic 09/26/14) Multiple rib fractures (Acute) Non-cardiac chest pain (Chronic 09/21/16) Osteoarthritis (Chronic) Osteopenia (Chronic) 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) Pleural effusion on left (Acute) Right rib fracture (Resolved) Sciatica (Chronic) Tubular adenoma of colon (Chronic 01/28/17) Urinary incontinence (Chronic) Wernicke encephalopathy (Chronic) Surgical History Bladder Surgery Colonoscopy - MAC (01/28/17) EGD - MAC (12/20/16) Ligation of fallopian tube Repair bladder injury, simple Social History/Home Situation: Leticia reports that she lives in an assisted living facility in [place]. She has a caregiver who comes in daily 5 days per week for 2 hours each time to assist with laundry, minor house chores, and grocery shopping. Patient is independent with MRADLs using a straight cane. She has a walker which she states she does not use often. She receives meals on wheels. She no longer drives. Equipment Owned/DME: FWW, SC, grab bars Subjective: Leticia reported moderate pain in her R shoulder. She appeared to have neutral feelings regarding her participation in a PT evaluation. Objective: General Observation: Leticia was seen laying supine with HOB elevated 30 degrees. Sling to R arm. Bilateral TEDS in legs. Mental Status: Alert and oriented x 4 Pain: Moderate discomfort of the R shoulder ROM: R UE not assessed due to pain and discomfort. Right Lower Extremity: Hip flexion WFL. Hip abduction WFL. Knee flexion WFL. Ankle dorsiflexion WFL. Ankle plantarflexion WFL. Left Lower Extremity: Hip flexion WFL. Hip abduction WFL. Knee flexion WFL. Ankle dorsiflexion WFL. Ankle plantarflexion WFL. Strength (assessed in supine): Right Lower Extremity: Hip flexors 3-/5. Knee extensors 4/5. Ankle dorsiflexors 5/5. Ankle plantarflexors 5/5. Left Lower Extremity: Hip flexors 3-/5. Knee extensors 4/5. Ankle dorsiflexors 5/5. Ankle plantarflexors 5/5. Bed Mobility/Transfers: Rolling I Supine to sit Minimal assistance Sit to supine Minimal assistance Sit to stand CGA Stand to sit CGA Bed to chair CGA Chair to bed CGA Gait: Patient exhibited reciprocal gait for 25 feet using a flako-walker, and wheelchair follow with CGA. She appeared to have decreased step length but normal violeta. Balance: Static Sitting: Normal Dynamic Sitting: Good Static Standing: Good Dynamic Standing: Fair Special Tests: Mobility Limitations Standardized Measure [facility] AM-PAC 6 clicks Basic Mobility Inpatient Short Form: Raw Score: 15 CMS Score: 58% deficit Informed Consent/Education: Patient instructed in purpose of PT consult and plan of care. She was educated on use of the flako-walker but her need for it is not apparent. She was educated about the benefits of continued PT in a detention facility. Assessment: Patient is a 74-year-old female with past medical history sign ificant for ETOH abuse, back pain, depression, and frequent falling with diagnoses of ETOH withrawal and mildly comminuted /mildly displaced distal clavicular fracture on the right side presenting with impairments and functional limitations listed above requiring continued skilled PT services at the SNF. Patient presents with clinical signs and symptoms consistent with current/admitting diagnoses that have resulted to mobility limitations, gait instability, generalized weakness, and impairment of motor control as demonstrated by the following impairment level findings: 1. Decreased strength to R UE and B LE major muscle groups 2. Impaired standing balance 3. Impaired activity tolerance 4. Limitation of joint range of motion in R shoulder Impairments are contributing to the following functional limitations: 1. Dependent bed mobility skills 2. Increased dependence with transfers 3. Inability to safely ambulate without assistive device and physical assistance 4. Increase completion time for mobility ADL performance 5. Increased fall risk 6. Inability to negotiate steps alone safely Patient is assessed as a 06174 moderate complexity based on the following: History: Patient is a 74 year old female presenting with EtOH withdrawal and distal facture of the R clavicle. Examination: Demonstrable impairment in strength, balance, and range of motion with underlying impairments and functional limitations as documented above Presentation: Evolving Decision Makin moderate complexity Goals: Goals X1 week 1. Supine-Sit independent 2. Sit-Supine independent 3. Sit-Stand independent 4. Stand-Sit independent 5. Bed-Chair independent 6. Chair-Bed independent 7. Independent gait on level surface with use of least restrictive device for at least 300 feet without report of pain nor dyspnea 8. Independent stair negotiation while holding onto bilateral rails for at least 10 steps without report of pain nor dyspnea 9. Independent with home exercise program 10. Good static and dynamic standing balance/tolerance DISCHARGE RECOMMENDATIONS: Patient is recommended to be discharged to a SNF with continued PT treatment and use of SC during ambulatory activities. TREATMENT CODE/TIME: 95300 x 30 minutes, 98417 x 10 minutes beginning at 10:09 AM. Thank you very much for this referral. Fidel Escalona [facility] With the supervision of: Tawana Cruz PT, DPT, CLT [facility]
--- NOTE | 2019-05-03 12:45 | DSE_ITS ---
Date of service: 05/03/19 Time of Service: 12:45 DS: Diagnosis Discharge Diagnosis (1) Fracture of clavicle, right, closed: Status: Acute (2) Hypomagnesemia: Status: Acute (3) Alcohol abuse: Status: Chronic (4) Hypertension: Status: Chronic (5) Hypokalemia: Status: Acute Discharge Plan Disposition Patient Disposition: SNF (LEVEL 1) [facility] Condition: Stable Discharge Details Chief Complaint: GenMedical Clinical Impression: Alcohol abuse, Fracture of right clavicle, Failure to thrive Reason For Visit: FAILURE TO THRIVE Admit Date/Time: 05/02/19 17:33 Admit Provider: Gwyn Blake Attending Provider: Gwyn Blake Primary Care Provider: Lavelle Galindo ED Provider: Blaze Mccarthy Hospital Course Hospital Course: Leticia Garza is a 74 year old female with a past medical history of alcohol abuse and multiple admissions for alcohol withdrawal, HTN, chronic pain, depression and frequent falls related to alcohol intoxication and a recent admission to [facility] with rib fractures and hemothorax following mechanical fall requiring chest tube and a recent discharge here at [facility] on 04/17/19 after being hospitalized for dyspnea, tachycardia, and hypertension. During that hospitalization, there was initially concern for acute alcohol withdrawal but eventually was concluded that she was hypertensive and tachycardic due to dehydration and poor medication compliance w/ her beta blockers. At the time of discharge, official recommendations were for placement at a custodial facility, however, there were no beds available at local facilities. She was discharged home with home health services. Unfortunately, she sustained another fall and presented back to the ED on 05/01, she had a CT head at that time which showed a scalp hematoma, no acute intracranial abnormality. She was discharged home but presented back to the ED on 05/02 with reports of right shoulder pain. X- ray revealed a comminuted distal right clavicle fracture. Because the patient lives alone and has been found by caregivers to not be taking care of herself including not taking her medications and not eating, attempts were made from the ER today to try to place her in a SNF for short term rehabilitation. Local custodial facilities were not able to take her last evening from the ED, therefore, she was admitted overnight on observation to work with PT and to determine a safe disposition. Labs in the ED showed hypokalemia of 3.1 and hypomagnesemia of 1.1, chronically elevated mildly elevated LFT's and a chronic anemia 11.6 gm/HCT 35%. MIGUELINA was <3. Patient was given ativan 2 mg IV for anxiety, 1 L of NS IV bolus and a banana bag of MVS, thiamine, folic acid and magnesium as well as Tylenol 1 gm for her pain. This morning, her potassium has improved to 3.6, magnesium improved to 2.5, hgb 12.4, hct 38.3. She is awake and alert. She is wearing sling on her RUE and has ice to her right shoulder. She is agreeable to rehab. She was seen by PT who recommended Leticia be discharged to a SNF with continued PT treatment and use of SC during ambulatory activities. Leticia's vital signs are stable. She did have 2 small soft brown bowel movements on the day of discharge, no profuse watery diarrhea. She is alert and oriented, pleasant and cooperative. She denies drinking alcohol in several days. Of note, she also had a hand x-ray on 04/14 which showed a moderately displaced fracture of the base of the proximal phalanx of the index finger, she has a splint and kaitlin tape in place. Home Meds and New Rx's Prescriptions: New multivitamin [Multiple Vitamins] Tablet 1 tab PO DAILY Qty: 0 RF: 0 potassium chloride [Klor-Con M10] 10 mEq Tablet,Er Particles/Crystals 20 meq PO BID@0800,2000 Qty: 0 RF: 0 thiamine mononitrate (vit B1) [Vitamin B-1 (mononitrate)] 100 mg Tablet 100 mg PO DAILY Qty: 0 RF: 0 Continued magnesium oxide 400 mg (241.3 mg magnesium) tablet 400 mg PO BID Qty: 180 RF: 3 acetaminophen [Tylenol Extra Strength] 500 mg tablet 1,000 mg PO Q8H PRN PRNRF: 0 lidocaine 5 % adhesive patch,medicated 1 patch TP DAILY RF: 0 gabapentin 300 mg capsule 300 mg PO BID Qty: 90 RF: 5 ondansetron 4 mg tablet,disintegrating 4 mg PO QID PRN (Reason: nausea and vomiting) Qty: 0 RF: 0 celecoxib [Celebrex] 100 mg capsule 100 mg PO DAILY PRN (Reason: pain) Qty: 30 RF: 2 metoprolol tartrate 50 mg tablet 50 mg PO BID Qty: 60 RF: 2 venlafaxine 150 mg capsule,extended release 24hr 150 mg PO QAM Qty: 0 RF: 0 folic acid 1 mg Tablet 1 mg PO DAILY Qty: 14 RF: 0 bisacodyl 10 mg Suppository 10 mg CO PRN PRNRF: 0 amlodipine 10 mg Tablet 10 mg PO DAILY Qty: 0 RF: 0 pantoprazole 40 mg Tablet,Delayed Release (Dr/Ec) 40 mg PO DAILY@0730 Qty: 0 RF: 0 Discharge Instructions Instructions: Clavicle Fracture (ED) Additional Instructions: Follow up with Orthopedics for distal clavicle fracture. Activity:: Activity as Tolerated Equipment/Supplies:: No Equipment Needed Diet:: As Tolerated Discharge Orders Discharge Orders: Discharge Order (Routine); Ordered 05/03/19 Ordered By: Jessie Cowan Exam Narrative Exam Narrative: General: elderly female, laying in bed, in NAD. Alert and oriented, answers questions appropriately. In NAD. HEENT: normocephalic, pupils equal and round, EOMI, mucous membranes moist. Neck: supple, no JVD. Respiratory: respirations even and unlabored, lung sounds clear bilaterally. Cardiovascular: heart has regular rate and rhythm. No murmur appreciated. GI: abdomen soft, nontender on palpation, nondistended, normal bowel sounds. Extremities: RUE with sling in place, lidoderm patch to right shoulder, no obvious deformation to right shoulder, no ecchymosis visible. Right fingers kaitlin taped with splint. no clubbing, cyanosis or edema of BLEs. DS: Data Vitals/I&O Vitals and I&O: Vital Signs Temperature 36.7 C 05/03/19 07:20 Temperature Source Tympanic 05/03/19 07:20 Pulse 63 05/03/19 07:20 Pulse Rhythm Regular 05/03/19 08:03 Pulse 117 H 05/02/19 12:20 Respiratory Rate 18 05/03/19 07:20 Respiratory Effort Non-Labored 05/03/19 08:03 Respiratory Depth Normal 05/03/19 08:03 Respiratory Pattern Normal 05/03/19 08:03 Blood Pressure 128/66 05/03/19 07:20 Blood Pressure Mean 111 05/02/19 14:37 Blood Pressure Position Supine 05/02/19 09:12 Pulse Oximetry 98 09/05/19 07:20 Oxygen Delivery Method Room Air 05/03/19 07:20 Oxygen Flow Rate 0 05/03/19 07:20 Pain Level 0 05/03/19 07:20 Intake & Output 05/02/19 05/03/19 05/03/19 23:59 11:59 23:59 Intake Total 600 / 610 Output Total 300 / 300 Balance -300 / 876.667 600 / 610 Weight 61.235 kg 63.2 kg Intake: IV Oral 600 / 600 Output: Urine 300 / 300 Other: Urine Color Yellow Yellow Urine Appearance Clear Clear Comment Patient grossly incontinent in brief. Stool Size Small Small Stool Characteristics Soft Soft Brown Voiding Methods Bedside Commode Diaper Incontinent Completed studies during hospitalization [Text1]: 05/02/19: RIGHT SHOULDER: Comparison is made with chest x-ray of [id number]. There is a fracture of the distal right clavicle with mild comminution and inferior displacement of the distal fragments. There is no glenohumeral joint dislocation or AC joint widening. There is a small calcification near the humeral head which could indicate calcific tendinosis. There are old upper right rib fractures. IMPRESSION: Mildly comminuted displaced fracture of the distal clavicle. Labs on day of discharge: Labs from last 24 hours 05/03/19 05/03/19 05/03/19 07:20 07:20 07:20 WBC 4.88 RBC 3.96 L Hgb 12.4 Hct 38.3 MCV 96.7 H MCH 31.3 MCHC 32.4 RDW 16.4 H Plt Count 194 MPV 9.4 Immature Gran % 0.0 Neutrophils % 69.1 Lymphocytes % 21.1 Monocytes % 7.6 Eosinophils % 2.0 Basophils % 0.2 Absolute Neutrophils 3.37 Absolute Lymphocytes 1.03 L Absolute Monocytes 0.37 Absolute Eosinophils 0.10 Absolute Basophils 0.01 Sodium 141 Potassium 3.6 Chloride 104 Carbon Dioxide 28.4 Anion Gap 8.6 BUN 6 L Creatinine 0.73 Estimated GFR/1.73 m2 >= 60.00 Glucose 130 H Calcium 9.1 Magnesium 2.5 H Total Bilirubin 2.3 H Conjugated Bilirubin 0.50 H AST 39 H ALT 40 Alkaline Phosphatase 184 H Total Protein 6.6 Albumin 3.0 L [facility] Medical History Alcohol abuse (Chronic) Alcoholic ketosis (Resolved) Allergic rhinitis (Chronic) Anemia (Chronic 12/20/16) Back pain, chronic (Chronic) Cataract (Chronic 11/07/15) Cervical radicular pain (Chronic) neck pain and DJD [facility] Chronic alcoholic gastritis (Chronic 10/12/17) pls refrain from alcohol Corneal ulcer, right (Inactive ~08/23/18) 08/23/18; [facility] Depression (Chronic) Elev transaminase/LDH (Chronic) due to alcohol Falling (Chronic) Genital herpes simplex (Chronic) recurrent gential; suppressive Valtrex GERD (gastroesophageal reflux disease) (Chronic) GI bleed (Chronic 12/20/16) Headache (Chronic) Hyperlipidemia (Chronic) Hypertension (Chronic) high today; she will check readings at home 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 Multiple rib fractures (Acute) 03/11/19 [facility] Non-cardiac chest pain (Chronic 09/21/16) [facility] 09/21/16 NEGATIVE MP Osteoarthritis (Chronic) Osteopenia (Chronic) 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) Pleural effusion on left (Chronic) 03/11/19 [facility] Right rib fracture (Resolved) Sciatica (Chronic) right, epidural injuections [facility] Tendinitis of left rotator cuff (Inactive) Tubular adenoma of colon (Chronic 01/28/17) Urinary incontinence (Chronic) 01/24/13 urethral suspension and sling at [facility] (bladder suspension 1991) Wernicke encephalopathy (Chronic) Surgical History Bladder Surgery suspension Colonoscopy - MAC (01/28/17) EGD - MAC (12/20/16) Ligation of fallopian tube Repair bladder injury, simple Family History Mother No problems noted. Father , DROWNED at age 50. No problems noted. Sister Personal history of malignant neoplasm MELANOMA Sister No problems noted. Grandfather Personal history of malignant neoplasm STOMACH Grandfather Personal history of malignant neoplasm PROSTATE Grandmother Heart disease SC Acute ill-defined cerebrovascular disease Grandmother Personal history of malignant neoplasm UTERINE Aunt , SC Heart disease SC Aunt , SC Heart disease Brother No problems noted. Social History Smoking/Tobacco Use Status: Former Tobacco Use Alcohol Intake: former Drug use: Never Details: APtient states her last alcohol intake was 2 days ago Do you feel safe at home: Yes Additional Social history: my caregiver is an anxiety attack person
--- NOTE | 2019-05-03 14:29 | PDOC.CMIN ---
- If Service Date Differs Date of service: 05/03/19 Time of Service: 14:29 Care Management Initial Assess REASON FOR HOSPITALIZATION:: Failure to thrive PAST MEDICAL HISTORY/PAST SURGICAL HISTORY:: Medical: Alcohol abuse (Chronic), Alcoholic ketosis (Resolved), Allergic rhinitis (Chronic), Anemia (Chronic 12/20/16); Back pain, chronic (Chronic). Cataract (Chronic 11/07/15); Cervical radicular pain (Chronic); Chronic alcoholic gastritis (Chronic 10/12/17); Depression (Chronic); Elev transaminase/LDH (Chronic),Falling (Chronic), Genital herpes simplex (Chronic); GERD (gastroesophageal reflux disease) (Chronic); GI bleed (Chronic 12/20/16); Headache (Chronic); Hyperlipidemia (Chronic); Hypertension (Chronic); Macrocytosis (Chronic 09/26/14); Multiple rib fractures (Acute); Non-cardiac chest pain (Chronic 09/21/16); Osteoarthritis (Chronic); Osteopenia (Chronic); 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). Pleural effusion on left (Acute); Right rib fracture (Resolved); Sciatica (Chronic); Tubular adenoma of colon (Chronic 01/28/17); Urinary incontinence (Chronic); Wernicke encephalopathy (Chronic). Surgical: Bladder Surgery; Colonoscopy - MAC (01/28/17); EGD - MAC (12/20/16); Ligation of fallopian tube; Repair bladder injury, simple PREVIOUS FUNCTIONAL STATUS/SOCIAL/FAMILY SUPPORTS:: Leticia lives alone at her home in [place] with her dog. She has a caregiver, Armida (cell: [phone]; home: [phone]), who assists her with ADL's. Leticia also mentioned her son, Bennie who is a strong support, but lives in [place]. CURRENT FUNCTIONAL STATUS:: Leticia was sitting up in her bed eating lunch when CM visited with her. She was awake and alert and open to discuss her plan of care. She reported that she is here because she fell, but she did not believe that she was ready to be discharged the last time she was here (dc 04/17/19). She was aware of the plan to be placed in a facility for a short rehab stay before going home. ADVANCE DIRECTIVES:: None on file, but there is a durable POA, naming Clarence Garza as agent. Has patient been provided with information about the portal?: Yes Did the patient sign up for the portal?: Yes CODE STATUS:: Full Code INSURANCE COVERAGE / FINANCIAL ISSUES:: Commercial MCR replacement. Financial Assist 70%. CURRENT HOME/COMMUNITY SERVICES/EQUIPMENT:: Leticia has a caregiver, Armida, who assists with her ADL's. She also has current home health services. She owns a FWW. PRIMARY CARE PHYSICIAN:: Lavelle Galindo POTENTIAL DISCHARGE NEEDS:: Evaluations for further needs, follow up appointments including palliative consult. PATIENT/FAMILY EDUCATION NEEDS:: Review of community supports, discharge plan, discussion of self care needs upon discharge, including Ask Me Three. ANTICIPATED BARRIERS TO DISCHARGE:: None identified at this time. TRANSPORTATION:: [facility] private vehicle, coordinated by CM. PLAN:: Anticipate Leticia will discharge today and go to the [facility] for a short rehab stay before returning home. CM to coordinate transportation via [facility]. CM will support Leticia with decision making regarding discharge planning. Readmission - Within the Past 30 Days Yes or No: Y (Previous acute stay) - Date of First Admission Date of 1st Admission: 04/11/19 - Date of this Admission Date of Admission: 05/02/19 This admission was: Through ED - Office Visit Since 1st Admission Have you seen your PCP in the office since discharge?: No Had an appointment Been Scheduled?: Yes Date of Scheduled Appointment: 05/02/2019 Describe barriers for scheduling or getting an appointment: No barriers identified. - Speicalist Appointments Have you seen any other specialist since your 1st Admission?: No - I. Interview patient and/or Family Difficulty reaching your doctor or getting an office appt?: No Have you had trouble purchasing/ or taking medication?: Yes Describe barriers fpr purchasing or taking medication: Leticia states that she does not take her medication as well as she should because it makes her sick to her stomach. How do you take your medications and set up your pills?: Caregiver, Armida helps set up her medication. Leticia states that due to the medication upsetting her stomach she only takes one pill at a time, and often does not finish taking them. Have you had trouble with getting meals at home?: No Describe your typical meals since you have been home: Leticia has received MOW but does not like the food as it is not appealing to her. She states that she does not have a good appetite at baseline. Did you feel ready for discharge when you left the last time: No Why did you not feel ready for discharge?: Leticia states that she felt like she was not ready to be discharged, but she was rushed out of the hospital. Were services received that you thought were set up on disch: Yes What services were received?: HH- VNA What were the barriers for not receiving services?: HH will not stay if it is apparent that Leticia has been drinking upon their arrival. Did you call your physician beore you came to the ED?: Yes (Armida, caregiver called) Did your physician tell you to come in?: No How do you think you became sick enough to come back?: Leticia states that she came back because she fell and broke her shoulder and had a CT scan and was sent home from the ED, despite her pain. She then went home and tripped and fell, which brought her back into the ED. - If the patient had a VNA ordered Did the patient have a VNA order?: Yes Did you call the VNA before you came?: No - If the patient had home care service Call them to discuss the patient's admission: called and spoke with HH regarding Leticia. HH reported that their main concern is her alcohol use, and that they have told her that if they arrive and she has been drinking, they will leave, which has happened on numerous occasions. They also stated that she is not taking her meds at all, and that she is non compliant. - ED visits How many ED visits in the past 12 months: 20 - Assessment for Readmission Summary of readmission circumstances, based upon interviews: Leticia has had numerous trips to the ER in the last year. She was recently discharged home from [facility] on 04/17/2019. Leticia's history of alcohol abuse and her non compliance with medication management are recurrent issues that aid in her readmission. Although it has been noted that she may benefit from joint terminal attack controller care, her lack of nursing home care funds are a barrier to this plan.
--- NOTE | 2019-05-03 15:01 | CHAPLAIN ---
Leticia [facility], but prior to that she was friendly and engaged in a conversation with me. We know each other from previous admissions. Today Leticia was as clear as I've ever seen her. She told me about falling and said her shoulder is still really painful, as well as some ribs. She fell last night, she said. Her children purchased [employer] service for her and Leticia said she used her [employer] to notify emergency services that she'd fallen and they arrived quickly. I gave Leticia a prayer shawl that she seemed to appreciate.
== END 2019-05-03 14:27 | disposition skilled nursing facility (03) ==
LOC: ER 17:45 → MS 18:19
PROVIDERS: Admitting Provider Internal Medicine; Emergency Provider Emergency Medicine; PCP Family Medicine; Visit Provider Internal Medicine
DX: S42.031A Displaced fracture of lateral end of right clavicle, initial encounter for closed fracture (principal); E83.42 Hypomagnesemia; F10.20 Alcohol dependence, uncomplicated; I10 Essential (primary) hypertension; E87.6 Hypokalemia; W19.XXXA Unspecified fall, initial encounter; Z91.81 History of falling; D50.9 Iron deficiency anemia, unspecified; S62.610D Displaced fracture of proximal phalanx of right index finger, subsequent encounter for fracture with routine healing; F32.9 Major depressive disorder, single episode, unspecified; K21.9 Gastro-esophageal reflux disease without esophagitis
CPT/HCPCS: 36415; 80048; 80053; 80076; 96361; 96374; 97162; 97530; 99220; 99239; 99285; 73030; 80320; 83735; 85025; 85610; 85730; 99217; 99284; G0378; J2060; J3475; L3650

== ENCOUNTER 2019-05-07 13:34 | Outpatient (REF) | payer OTHER, SELFPAY ==
[2019-05-07 15:37] LABS: Anion Gap 8.6 mmol/L (3-11); BUN 11 mg/dL (7-18); CO2 25.4 mmol/L (21.0-32.0); CREATININE 1.12 mg/dL (0.55-1.02); Calcium 9.8 mg/dL (8.5-10.1); Chloride 102 mmol/L (98-107); Estimated GFR 47.69 (mL/min/1.73m2); Glucose 102 mg/dL (70-100); Potassium 4.9 mmol/L (3.5-5.1); Sodium 136 mmol/L (136-145); Vitamin B12 597 pg/mL (193-986)
== END 2019-05-07 13:54 ==
LOC: LBN 13:34
PROVIDERS: PCP Family Medicine; Visit Provider Nurse Practitioner Gerontology
DX: D51.8 Other vitamin B12 deficiency anemias (principal)
CPT/HCPCS: 80048; 82607

== ENCOUNTER 2019-05-09 11:29 | Outpatient (CLI) | payer OTHER, SELFPAY ==
--- NOTE | 2019-05-09 11:35 | DI.RAD_ITS ---
SYMPTOM/DIAGNOSIS: F/U FX RIGHT SHOULDER: Comparison is made with 05/02/19. There has been no change in the comminuted fracture at the distal clavicle.
== END 2019-05-09 11:49 ==
PROVIDERS: PCP Family Medicine; Referring Provider Family Medicine; Visit Provider Orthopaedic Surgery
DX: S42.031A Displaced fracture of lateral end of right clavicle, initial encounter for closed fracture (principal); W08.XXXA Fall from other furniture, initial encounter; F10.10 Alcohol abuse, uncomplicated
CPT/HCPCS: 99214; 73020

== ENCOUNTER 2019-05-19 20:55 | Emergency (ER) | payer OTHER, SELFPAY ==
[2019-05-19 21:13] VITALS: BP 175/86; PULSE 134; RESP 32; TEMP 37.7; O2SAT 94
--- NOTE | 2019-05-19 21:21 | DI.CT_ITS ---
EXAM: CT CHEST PE CTA CLINICAL HISTORY: chest pain and shortness of breath. TECHNIQUE: The exam was performed according to the usual protocol with 60 cc of Omnipaque 350. COMPARISON: CT CHEST PE ABD PELVIS W from 04/11/2019 FINDINGS: The pulmonary arteries are intact. There is no evidence of pulmonary emboli. The aorta is unremarkab le. There is no aneurysm or evidence of dissection. There is no pericardial effusion. There is no e vidence of lymphadenopathy. Note is made of old fracture deformities bilaterally. The soft tissues are unremarkable. There is no evidence of PE. The aorta is unremarkable. A 12 mm right apical ground-glass nodular opac ity is identified. A small amount of atelectasis is noted in the left lung base. The heart is unremar kable. There is no evidence of lymphadenopathy many old bilateral rib fractures are seen. The soft ti ssues are unremarkable. IMPRESSION: There is no evidence of PE. There is a 12 mm ground-glass nodular opacity in the right lung apex whic h may have increased in size slightly when compared with an older available study. A small amount of left lung atelectasis is improved. A small left pleural effusion is improved. Many old rib fracture d eformities are identified.
--- NOTE | 2019-05-19 21:23 | W.ED.GENAD ---
Discharge Plan Disposition Patient Disposition: HOME Condition: Stable Discharge Details Chief Complaint: RespSymp Clinical Impression: Alcohol abuse, Influenza Primary Care Provider: Lavelle Galindo ED Provider: Blaze Mccarthy Teller Meds and New Rx's Prescriptions: New oseltamivir [Tamiflu] 75 mg capsule 75 mg PO DAILY Qty: 9 RF: 0 Continued potassium chloride [Klor-Con M10] 10 mEq tablet,ER particles/crystals 20 meq PO BID@0800,2000 RF: 0 magnesium oxide 400 mg (241.3 mg magnesium) tablet 400 mg PO BID Qty: 180 RF: 3 acetaminophen [Tylenol Extra Strength] 500 mg tablet 1,000 mg PO Q8H PRN PRNRF: 0 lidocaine 5 % adhesive patch,medicated 1 patch TP DAILY RF: 0 gabapentin 300 mg capsule 300 mg PO BID Qty: 90 RF: 5 ondansetron 4 mg tablet,disintegrating 4 mg PO QID PRN (Reason: nausea and vomiting) Qty: 0 RF: 0 celecoxib [Celebrex] 100 mg capsule 100 mg PO DAILY PRN (Reason: pain) Qty: 30 RF: 2 metoprolol tartrate 50 mg tablet 50 mg PO BID Qty: 60 RF: 2 venlafaxine 150 mg capsule,extended release 24hr 150 mg PO QAM Qty: 0 RF: 0 folic acid 1 mg Tablet 1 mg PO DAILY Qty: 14 RF: 0 multivitamin [Multiple Vitamins] Tablet 1 tab PO DAILY Qty: 0 RF: 0 thiamine mononitrate (vit B1) [Vitamin B-1 (mononitrate)] 100 mg Tablet 100 mg PO DAILY Qty: 0 RF: 0 bisacodyl 10 mg Suppository 10 mg VA PRN PRNRF: 0 amlodipine 10 mg Tablet 10 mg PO DAILY Qty: 0 RF: 0 pantoprazole 40 mg Tablet,Delayed Release (Dr/Ec) 40 mg PO DAILY@0730 Qty: 0 RF: 0 Discharge Instructions Instructions: Influenza (ED) Additional Instructions: follow up with your primary care provider within 1 week try to limit alcohol use to 1 drink daily if you have severe worsening symptoms, persistent vomit or feel more ill return to the emergency department Medical Decision Making 74 yo female with multiple medical problems comes in with cough for an hour. She recently left the [facility] 3 days ago and denies drinking alcohol since d/c from the [facility]. She came in tonight with cough that started an hour ago with subjective fevers. She has persistent cough during exam, clear lungs on exam. She does appear anxious on exam. She notes some chest pain in the anterior chest that is worsened with coughing. I doubt acs but given her age and risk factors will obtain ecg and troponin and also obtain CTA given her shortness of breath and tachycardia to eval for PE and pna. She does appear anxious and is hypertensive, though she denies alcohol use will give ativan to treat possible withdrawal vs anxiety Pt's labs show etoh of 110 and she is not sure how this happened as she still denies drinking alcohol. Flu is positive so tamiflu ordered, CTA negative and she has improved atelecasis on the left with improved pleural effusion. She still has tachycarida at 110 on my exam. Given her degree of symptoms I recommended admission but she wants to go home and take the tamiflu. She is caox4 and has capacity to make her own decisions and understands risks of leaving incudling and permanent disability. She understands she needs to return immediately if she changes her mind and if she worsens. I will prescribe her the tamiflu Differential Diagnosis Differential Diagnosis: pna, bronchitis, PE, acs Medical Records Medical records reviewed: Yes I reviewed the patient's medical records. Imaging Data Radiologic Study: Attestation: I personally reviewed and interpreted this imaging study as follows: Imaging: CT Scan Radiologist's impression: IMPRESSION: 1. No obvious pulmonary emboli. Some of the basilar subsegmental vessels are obscured by breathing motion. 2. 12 mm groundglass nodular opacity in the right lung apex may have increased in size slightly. Compared to any older available studies. If none available then suggest PET/CT. 3. Small amount of left lung atelectasis, improved. 4. Small left pleural effusion, improved. 5. Many old rib fracture deformities. Lab Data Lab results reviewed: Yes I reviewed the patient's lab results. ECG Data Attestation: I personally reviewed and interpreted this ECG (s) as follows: Prior ECG tracings: not available for review Interpretation: sinus tachycardia, rate of 120, pr 140, qtc 494 HPI General Mode of arrival: wheelchair. Date/Time Provider Initiated Documentation: 05/19/19 20:56. Limitations to Documentation: no limitations. Information obtained by: patient. History of Present Illness 74 year old F presents to the emergency department with the chief complaint of cough, described as moderate, Quality is described as aching, Patient started experiencing this hour(s) (1) and it has been constant. No relieving factors improve symptom(s), No exacerbating factors reported . Patient did receive the following treatments prior to arrival, none Related Data Home Medications Medication Instructions Recorded Confirmed folic acid 1 mg PO DAILY #14 tab 08/11/18 05/19/19 magnesium oxide 400 mg (241.3 mg 400 mg PO BID #180 tab 11/22/18 05/19/19 magnesium) tablet acetaminophen 500 mg tablet 1,000 mg PO Q8H PRN PRN tab 04/10/19 05/19/19 lidocaine 5 % topical patch 1 patch TP DAILY 04/10/19 05/19/19 bisacodyl 10 mg VA PRN PRN 04/11/19 05/19/19 amlodipine 10 mg PO DAILY #0 tab 04/17/19 05/19/19 pantoprazole 40 mg PO DAILY@0730 #0 tab 04/17/19 05/19/19 celecoxib 100 mg capsule 100 mg PO DAILY PRN #30 cap 04/27/19 05/19/19 gabapentin 300 mg capsule 300 mg PO BID #90 cap 04/27/19 05/19/19 metoprolol tartrate 50 mg tablet 50 mg PO BID #60 tab 04/27/19 05/19/19 ondansetron 4 mg disintegrating 4 mg PO QID PRN #0 tab 04/27/19 05/19/19 tablet venlafaxine 150 mg 150 mg PO QAM #0 cap 04/27/19 05/19/19 capsule,extended release 24 hr multivitamin [Multiple Vitamins] 1 tab PO DAILY #0 tab 05/03/19 05/19/19 thiamine mononitrate (vit B1) 100 mg PO DAILY #0 tab 05/03/19 05/19/19 [Vitamin B-1 (mononitrate)] potassium chloride 10 mEq 20 meq PO BID@0800,2000 tab 05/09/19 05/19/19 tablet,extended release(part/cryst) oseltamivir [Tamiflu] 75 mg PO DAILY #9 cap 05/19/19 Previous Rx's Medication Instructions Recorded folic acid 1 mg PO DAILY #14 tab 12/14/18 magnesium oxide 400 mg (241.3 mg 400 mg PO BID #180 tab 11/22/18 magnesium) tablet amlodipine 10 mg PO DAILY #0 tab 04/17/19 pantoprazole 40 mg PO DAILY@0730 #0 tab 04/17/19 celecoxib 100 mg capsule 100 mg PO DAILY PRN #30 cap 04/27/19 gabapentin 300 mg capsule 300 mg PO BID #90 cap 04/27/19 metoprolol tartrate 50 mg tablet 50 mg PO BID #60 tab 04/27/19 ondansetron 4 mg disintegrating 4 mg PO QID PRN #0 tab 04/27/19 tablet venlafaxine 150 mg 150 mg PO QAM #0 cap 04/27/19 capsule,extended release 24 hr multivitamin [Multiple Vitamins] 1 tab PO DAILY #0 tab 05/03/19 thiamine mononitrate (vit B1) 100 mg PO DAILY #0 tab 05/03/19 [Vitamin B-1 (mononitrate)] oseltamivir [Tamiflu] 75 mg PO DAILY #9 cap 05/19/19 Allergies Allergy/AdvReac Type Severity Reaction Status Date / Time Penicillins Allergy Mild Rash Verified 05/19/19 21:16 ramipril Allergy Unknown ITCHING Verified 05/19/19 21:16 meperidine [From Demerol] AdvReac Severe Nausea Verified 05/19/19 21:16 bupropion AdvReac Mild GI upset Verified 05/19/19 21:16 AMBER Inhibitors AdvReac Unknown COUGH Verified 05/19/19 21:16 alendronate sodium AdvReac Unknown GI Distress Verified 05/19/19 21:16 clarithromycin AdvReac Unknown intolerant Verified 05/19/19 21:16 paroxetine AdvReac Unknown Diarrhea Verified 05/19/19 21:16 General Stated Complaint: RespSymp JORDAN: 3 Review of Systems Review of Systems ROS Unobtainable: All systems reviewed & are unremarkable except as noted in HPI and below Constitutional Constitutional: Denies chills, Denies fever(s) and Denies weakness Gastrointestinal Gastrointestinal: Denies abdominal pain, Denies nausea and Denies vomiting Neurologic Neurologic: Denies weakness Endocrine Endocrine: Denies heat intolerance PFSH Social History Smoking/Tobacco Use Status: Former Tobacco Use Alcohol Intake: former Drug use: Never Details: APtient states her last alcohol intake was 2 days ago 05/19/19-pt states last drink was weeks ago Do you feel safe at home: Yes Do you feel safe in your relationship?: Yes Additional Social history: my caregiver is an anxiety attack person Exam Const General: anxious Orientation: alert HENMT Head: normal to inspection Ears: external ears normal General nose exam: external nose normal Mouth: moist mucous membranes Eyes General: appearance normal, both eyes and all related structures Neck Neck: normal visual inspection Resp Effort & Inspection: normal respiratory effort and able to speak in complete sentences Cardio Rate: regular rate Skin General skin exam: no rashes or lesions noted Neuro General: alert and oriented x3 Extrem General: normal to inspection Psych Mental Status: mental status grossly normal Course Vital Signs Vital signs: Vital Signs Temperature 37.7 C H 05/19/19 21:13 Pulse 134 H 05/19/19 21:13 Respiratory Rate 32 H 05/19/19 21:13 Blood Pressure 175/86 H 05/19/19 21:13 Pulse Oximetry 94 L 05/19/19 21:13 Temperature 37.7 C H 05/19/19 21:13 Pulse 134 H 05/19/19 21:13 Respiratory Rate 32 H 05/19/19 21:13 Respiratory Effort Non-Labored 05/19/19 21:18 Respiratory Depth Normal 05/19/19 21:18 Blood Pressure 175/86 H 05/19/19 21:13 Blood Pressure Position Supine 05/19/19 21:13 Pulse Oximetry 94 L 05/19/19 21:13 Oxygen Delivery Method Room Air 05/19/19 21:13 Oxygen Flow Rate 0 05/19/19 21:13 Pain Level 7 05/19/19 21:13
[2019-05-19] MEDS: Albuterol/Ipratropium 3 ML UPD VIAL UPD (21:30)
[2019-05-19] MEDS: methylPREDNISolone SUCC 125 MG VIAL IVP (21:53)
[2019-05-19] MEDS: LORazepam 2 MG/ML VIAL 1 MG IVP (21:53)
[2019-05-19] MEDS: Normal Saline 1,000 ML 1000 ML IV (21:54)
[2019-05-19 22:06] LABS: Abs Immature Grans 0.03 k/cumm (0.0-0.09); Absolute Basophil Count 0.04 k/cumm (0.0-0.2); Absolute Lymphocyte Count 2.35 k/cumm (1.2-3.4); Absolute Neutrophil Count 5.82 k/cumm (1.2-6.7); Basophils % 0.4; Eosinophils % 2.2; HCT 34.8 % (36.0-46.0); HGB 11.1 g/dL (12.0-15.5); Immature Grans % 0.3; Lymphocytes % 25.7; Mean Corp. HGB Concentration 31.9 g/dL (32.0-36.0); Mean Corpuscular Hemoglobin 30.8 pg (27.0-33.0); Mean Corpuscular Volume 96.7 fL (80-95); Mean Platelet Volume 8.5 fL (8.0-11.0); Monocytes % 7.7; Neutrophils % 63.7; Platelet Count 444 x1000/uL (130-400); RBC Distribution Width 16.2 % (11.7-14.6); White Blood Cell Count 9.14 k/cumm (4.4-10.8)
[2019-05-19 22:16] LABS: ALT 42 U/L (14-59); AST 31 U/L (15-37); Albumin 3.6 g/dL (3.4-5.0); Alkaline Phosphatase 179 U/L (46-116); Anion Gap 19.2 mmol/L (3-11); BUN 18 mg/dL (7-18); Bilirubin, Total 0.5 mg/dL (0.2-1.0); CO2 18.8 mmol/L (21.0-32.0); CREATININE 0.96 mg/dL (0.55-1.02); Chloride 107 mmol/L (98-107); ETHANOL BLOOD 115.8 mg/dL (<3); Estimated GFR 56.97 (mL/min/1.73m2); Glucose 109 mg/dL (70-100); Potassium 3.6 mmol/L (3.5-5.1); Sodium 145 mmol/L (136-145); Total Protein 7.4 g/dL (6.4-8.2)
[2019-05-19 22:27] LABS: Troponin I < 0.05 ng/mL (0.00-0.06)
[2019-05-19] MEDS: Omnipaque 350 MG/ML 100 ML BTL IJ (22:42)
[2019-05-19 22:49] LABS: PTT Activated 24.5 sec (21.0-31.4); Prothrombin Time 9.7 sec (9.3-11.0)
--- NOTE | 2019-05-19 22:58 | DI.VRAD_ITS ---
PROCEDURE INFORMATION: Exam: CT Angiography Chest With Contrast Exam date and time: 05/19/2019 9:23 PM Clinical history: 74 years old, female; Type not specified; Patient HX: Chest pain, shortness of breath TECHNIQUE: Imaging protocol: Computed tomographic angiography of the chest with intravenous contrast. 3D rendering: MIP reconstructed images were created and reviewed. COMPARISON: No relevant prior studies available. FINDINGS: Pulmonary arteries: Unremarkable. No evidence of pulmonary emboli. Aorta: Unremarkable. No aortic aneurysm. No aortic dissection. Lungs: 12 mm right apical groundglass nodular opacity. Small amount of atelectasis in the left base. Pleural space: Small left pleural effusion. Heart: Unremarkable. No pericardial effusion. No obvious heart strain. Lymph nodes: Unremarkable. No enlarged lymph nodes. Bones/joints: Many old rib fracture deformities bilaterally. Soft tissues: Unremarkable. IMPRESSION: 1. No obvious pulmonary emboli. Some of the basilar subsegmental vessels are obscured by breathing motion. 2. 12 mm groundglass nodular opacity in the right lung apex may have increased in size slightly. Compared to any older available studies. If none available then suggest PET/CT. 3. Small amount of left lung atelectasis, improved. 4. Small left pleural effusion, improved. 5. Many old rib fracture deformities. Dictated and Authenticated by: Edilberto Allen MD. Ordering:EDUAR Thakur MD
[2019-05-19] MEDS: Oseltamivir 75 MG CAP PO (23:09)
[2019-05-19 23:49] VITALS: TEMP 37.1
== END 2019-05-19 23:15 | disposition home or self-care (01) ==
PROVIDERS: Emergency Provider Emergency Medicine; PCP Family Medicine
DX: J10.1 Influenza due to other identified influenza virus with other respiratory manifestations (principal); F10.220 Alcohol dependence with intoxication, uncomplicated; R91.1 Solitary pulmonary nodule; I10 Essential (primary) hypertension; F41.9 Anxiety disorder, unspecified; Y90.5 Blood alcohol level of 100-119 mg/100 ml
CPT/HCPCS: 36415; 71275; 80053; 87449; 93005; 94640; 96361; 96374; 96375; 99285; 80320; 84484; 85025; 85610; 85730; 93010; J2060; J2930; J3490; J7620

== ENCOUNTER 2019-05-21 20:00 | Emergency (ER) | payer OTHER, SELFPAY ==
[2019-05-21] VITALS (12 sets, daily range): BP systolic 126–145; BP diastolic 74–102; PULSE 107–125; RESP 4–30; TEMP 37.5; O2SAT 94–99
--- NOTE | 2019-05-21 20:37 | ED.GENADUL_ITS ---
Discharge Plan Disposition Patient Disposition: AGAINST MEDICAL ADVICE Discharge Details Chief Complaint: RespSymp Clinical Impression: Ground glass opacity present on imaging of lung, Cough, Pneumonia, Respiratory alkalosis Primary Care Provider: Lavelle Galindo ED Provider: James Crenshaw Home Meds and New Rx's Prescriptions: New albuterol sulfate 90 mcg/actuation HFA aerosol inhaler 2 puff IH Q4H PRN (Reason: shortness of breath) Qty: 8.5 RF: 0 levofloxacin 750 mg tablet 750 mg PO DAILY Qty: 4 RF: 0 magnesium oxide [MagOx] 400 mg (241.3 mg magnesium) tablet 400 mg PO BID Qty: 30 RF: 0 Discontinued magnesium oxide 400 mg (241.3 mg magnesium) tablet 400 mg PO BID Qty: 180 RF: 3 ondansetron 4 mg tablet,disintegrating 4 mg PO QID PRN (Reason: nausea and vomiting) Qty: 0 RF: 0 No Action potassium chloride [Klor-Con M10] 10 mEq tablet,ER particles/crystals 20 meq PO BID@0800,2000 RF: 0 acetaminophen [Tylenol Extra Strength] 500 mg tablet 1,000 mg PO Q8H PRN PRNRF: 0 lidocaine 5 % adhesive patch,medicated 1 patch TP DAILY RF: 0 gabapentin 300 mg capsule 300 mg PO BID Qty: 90 RF: 5 celecoxib [Celebrex] 100 mg capsule 100 mg PO DAILY PRN (Reason: pain) Qty: 30 RF: 2 metoprolol tartrate 50 mg tablet 50 mg PO BID Qty: 60 RF: 2 venlafaxine 150 mg capsule,extended release 24hr 150 mg PO QAM Qty: 0 RF: 0 folic acid 1 mg Tablet 1 mg PO DAILY Qty: 14 RF: 0 multivitamin [Multiple Vitamins] Tablet 1 tab PO DAILY Qty: 0 RF: 0 thiamine mononitrate (vit B1) [Vitamin B-1 (mononitrate)] 100 mg Tablet 100 mg PO DAILY Qty: 0 RF: 0 oseltamivir [Tamiflu] 75 mg capsule 75 mg PO DAILY Qty: 9 RF: 0 bisacodyl 10 mg Suppository 10 mg AK PRN PRNRF: 0 amlodipine 10 mg Tablet 10 mg PO DAILY Qty: 0 RF: 0 pantoprazole 40 mg Tablet,Delayed Release (Dr/Ec) 40 mg PO DAILY@0730 Qty: 0 RF: 0 Discharge Instructions Instructions: Against Medical Advice (ED), Pneumonia (ED) Additional Instructions: You are leaving AGAINST MEDICAL ADVICE. Please take medication as prescribed. Please follow-up with your primary care physician. Call tomorrow. Be sure to discuss her medications as an official medical be sure to discuss your medications as an official medicine reconciliation was not performed today. Please contact your primary care physician to arrange follow-up. Return to the ER at any time for further work-up and treatment. Referrals: Lavelle Galindo [Primary Care Provider] - Discharge Data Discharge Date/Time-TO BE ENTERED AT DEPARTURE: 05/21/19 22:45 Medical Decision Making 20:42 --74-year-old female with multiple medical problems including recently diagnosed with influenza A on 05/19/19, started on tamiflu, here with excessive coughing. Patient is saturating 94% on room air. She does appear anxious and tachycardic. Patient initially refusing care. I have convinced her to allow me to perform physical exam. She is agreeable to receiving lidocaine neb for treatment of spasmodic cough. --Patient reassessed after lidocaine neb and cough much improved now with wheezing. Patient remains minimally cooperative with history and exam. Initially refused IV by nursing. Now agreeable. Patient now with wheezing noted. I will give albuterol neb. --Radiology interpretation of CT of the chest 05/19/2019 was reviewed: There is no evidence of PE. There is a 12 mm ground-glass nodular opacity in the right lung apex which may have increased in size slightly when compared with an older available study. A small amount of left lung atelectasis is improved. A small left pleural effusion is improved. Many old rib fracture deformities are identified. -- VBG reviewed and interpreted by me: 7.51, pCO2 29, pO2 65. Patient has respiratory alkalosis from over ventilating. She has elevated PO2 on room air. Screening ECG was reviewed and interpreted by me: Sinus tachycardia 114 bpm, normal axis, nondiagnostic. --Chest x-ray reviewed and interpreted by radiology: Overall improved aeration of the lungs compared to the previous study. Patchy opacity in the left lung base could represent subsegmental atelectasis, pneumonia or aspiration in the right clinical setting. Pleural thickening and/or scarring suspected at the left lung base. Less likely effusion. Chemistry pending. Patient reassessed and does seem to be breathing easier. Remains tachycardic. Plan for hospitalization for further treatment. I had a discussion with the patient about my diagnostic/treatment plan. Patient declines plan and wishes to leave against medical advise. I reiterated my concerns to the patient and explained the risks of leaving prior to completion of workup and treatment. I specifically emphasized the possibility of life- threatening or lifestyle modifying disease that would not be appropriately treated if they leave. Patient verbalized understanding of my concerns and the potential for life threatening or lifestyle modifying disease. Patient has capacity to make this informed decision to leave. I again explained my concerns and urged the patient to stay for treatment as outlined. Patient continued to refuse. I then discussed potential less ideal alternatives to diagnostic/treatment plan as outlines and patient refused. I recommended that the patient follow-up with primary care physician PARKER or return to the Emergency Department at any time for further treatment. I will initiate treatment with levaquin as well as provide albuterol inhaler and neb. HPI General Mode of arrival: ambulatory . Date/Time Provider Initiated Documentation: 05/21/19 20:03 . Limitations to Documentation: physical limitation (coughing) and other (not cooperative with hx) . Information obtained by: patient . HPI Narrative: 74-year-old female with multiple medical problems including recently diagnosed with influenza A on 05/19/2019, returns today by ambulance with cough. Patient initially refusing treatment and just requesting water. Unable to obtain history secondary to excessive coughing and patient not cooperative with providing history or review of systems. Related Data Home Medications Medication Instructions Recorded Confirmed folic acid 1 mg PO DAILY #14 tab 08/11/18 05/19/19 acetaminophen 500 mg tablet 1,000 mg PO Q8H PRN PRN tab 04/10/19 05/19/19 lidocaine 5 % topical patch 1 patch TP DAILY 04/10/19 05/19/19 bisacodyl 10 mg AK PRN PRN 04/11/19 05/19/19 amlodipine 10 mg PO DAILY #0 tab 04/17/19 05/19/19 pantoprazole 40 mg PO DAILY@0730 #0 tab 04/17/19 05/19/19 celecoxib 100 mg capsule 100 mg PO DAILY PRN #30 cap 04/27/19 05/19/19 gabapentin 300 mg capsule 300 mg PO BID #90 cap 04/27/19 05/19/19 metoprolol tartrate 50 mg tablet 50 mg PO BID #60 tab 04/27/19 05/19/19 venlafaxine 150 mg 150 mg PO QAM #0 cap 04/27/19 05/19/19 capsule,extended release 24 hr multivitamin [Multiple Vitamins] 1 tab PO DAILY #0 tab 05/03/19 05/19/19 thiamine mononitrate (vit B1) 100 mg PO DAILY #0 tab 05/03/19 05/19/19 [Vitamin B-1 (mononitrate)] potassium chloride 10 mEq 20 meq PO BID@0800,2000 tab 05/09/19 05/19/19 tablet,extended release(part/cryst) oseltamivir [Tamiflu] 75 mg PO DAILY #9 cap 05/19/19 albuterol sulfate 2 puff IH Q4H PRN #8.5 gm 05/21/19 levofloxacin 750 mg PO DAILY #4 tab 05/21/19 magnesium oxide [MagOx] 400 mg PO BID #30 tab 05/21/19 Previous Rx's Medication Instructions Recorded folic acid 1 mg PO DAILY #14 tab 08/11/18 amlodipine 10 mg PO DAILY #0 tab 04/17/19 pantoprazole 40 mg PO DAILY@0730 #0 tab 04/17/19 celecoxib 100 mg capsule 100 mg PO DAILY PRN #30 cap 04/27/19 gabapentin 300 mg capsule 300 mg PO BID #90 cap 04/27/19 metoprolol tartrate 50 mg tablet 50 mg PO BID #60 tab 04/27/19 venlafaxine 150 mg 150 mg PO QAM #0 cap 04/27/19 capsule,extended release 24 hr multivitamin [Multiple Vitamins] 1 tab PO DAILY #0 tab 05/03/19 thiamine mononitrate (vit B1) 100 mg PO DAILY #0 tab 05/03/19 [Vitamin B-1 (mononitrate)] oseltamivir [Tamiflu] 75 mg PO DAILY #9 cap 05/19/19 albuterol sulfate 2 puff IH Q4H PRN #8.5 gm 05/21/19 levofloxacin 750 mg PO DAILY #4 tab 05/21/19 magnesium oxide [MagOx] 400 mg PO BID #30 tab 05/21/19 Allergies Allergy/AdvReac Type Severity Reaction Status Date / Time Penicillins Allergy Mild Rash Verified 05/30/19 11:15 ramipril Allergy Unknown ITCHING Verified 05/30/19 11:15 meperidine [From Demerol] AdvReac Severe Nausea Verified 05/30/19 11:15 bupropion AdvReac Mild GI upset Verified 05/30/19 11:15 AMBER Inhibitors AdvReac Unknown COUGH Verified 05/30/19 11:15 alendronate sodium AdvReac Unknown GI Distress Verified 05/30/19 11:15 clarithromycin AdvReac Unknown intolerant Verified 05/30/19 11:15 paroxetine AdvReac Unknown Diarrhea Verified 05/30/19 11:15 General Stated Complaint: RespSymp JORDAN: 3 Review of Systems Review of Systems ROS Unobtainable: Unobtainable due to (See HPI) [facility] Medical History Alcohol abuse (Chronic) Alcoholic ketosis (Resolved) Allergic rhinitis (Chronic) Anemia (Chronic 12/20/16) Back pain, chronic (Chronic) Cataract (Chronic 11/07/15) Cervical radicular pain (Chronic) neck pain and [facility] Chronic alcoholic gastritis (Chronic 10/12/17) pls refrain from alcohol Corneal ulcer, right (Inactive ~08/23/18) 08/23/18; UV-kb Depression (Chronic) Elev transaminase/LDH (Chronic) due to alcohol Falling (Chronic) Genital herpes simplex (Chronic) recurrent gential; suppressive Valtrex GERD (gastroesophageal reflux disease) (Chronic) GI bleed (Chronic 12/20/16) Headache (Chronic) Hyperlipidemia (Chronic) Hypertension (Chronic) high today; she will check readings at home 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 Multiple rib fractures (Acute) 03/11/19 [facility] Non-cardiac chest pain (Chronic 09/21/16) [facility] [place] NEGATIVE MP Osteoarthritis (Chronic) Osteopenia (Chronic) 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) Pleural effusion on left (Chronic) 03/11/19 [facility] Right rib fracture (Resolved) Sciatica (Chronic) right, epidural injuections [facility] Tendinitis of left rotator cuff (Inactive) Tubular adenoma of colon (Chronic 01/28/17) Urinary incontinence (Chronic) 01/24/13 urethral suspension and sling at [facility] (bladder suspension 1991) Wernicke encephalopathy (Chronic) Surgical History Bladder Surgery suspension Colonoscopy - [facility] (01/28/17) EGD - [facility] (12/20/16) Ligation of fallopian tube Repair bladder injury, simple Family History Mother No problems noted. Father , DROWNED at age 50. No problems noted. Sister Personal history of malignant neoplasm MELANOMA Sister No problems noted. Grandfather Personal history of malignant neoplasm STOMACH Grandfather Personal history of malignant neoplasm PROSTATE Grandmother Heart disease AR Acute ill-defined cerebrovascular disease Grandmother Personal history of malignant neoplasm UTERINE Aunt , AR Heart disease AR Aunt , AR Heart disease Brother No problems noted. Social History Smoking/Tobacco Use Status: Former Tobacco Use Alcohol Intake: former Drug use: Never Details: Patient states her last alcohol intake was 2 days ago 05/19/19-pt states last drink was weeks ago Do you feel safe at home: Yes Do you feel safe in your relationship?: Yes Additional Social history: my caregiver is an anxiety attack person Exam Const General: cooperative HENMT Mouth: moist mucous membranes Eyes Conjunctivae: normal conjunctivae Sclera: normal sclerae Neck Neck: trachea midline and supple Resp Effort & Inspection: cough, no respiratory distress and tachypneic Auscultation: clear to auscultation bilaterally, no rales, no rhonchi and no wheezes Cardio Jugular venous pressure: no JVD Rate: regular rate and not tachycardic Rhythm: regular rhythm GI Palpation: soft, not firm, no guarding, no masses, not rigid and nontender Skin General skin exam: no rashes or lesions noted Neuro General: alert, awake and tone normal Extrem General: no edema Course Vital Signs Vital signs: Vital Signs Temperature 37.5 C 05/21/19 20:00 Pulse 119 H 05/21/19 20:00 Respiratory Rate 16 05/21/19 20:00 Blood Pressure 129/94 H 05/21/19 20:00 Pulse Oximetry 94 L 05/21/19 20:00 Temperature 37.5 C 05/21/19 20:00 Temperature Source Temporal Artery Scan 05/21/19 20:00 Pulse 119 H 05/21/19 20:00 Respiratory Rate 16 05/21/19 20:00 Blood Pressure 129/94 H 05/21/19 20:00 Blood Pressure Position Supine 05/21/19 20:00 Pulse Oximetry 94 L 05/21/19 20:00 Oxygen Delivery Method Room Air 05/21/19 20:00 Oxygen Flow Rate 0 05/21/19 20:00 Pain Level 0 05/21/19 20:00 Comment 05/21/19 20:00
--- NOTE | 2019-05-21 20:51 | NUR.NOTE ---
Nursing Note: Pt provided with water x 3 glasses with MD approval.Pt refusing IV access at this time. Call bailey attached to bed and pt instructed in it's use.
[2019-05-21] MEDS: Albuterol 2.5 MG/3 ML INH SOLN VIAL UPD (21:14)
[2019-05-21] MEDS: methylPREDNISolone SUCC 125 MG VIAL 60 MG IVP (21:15)
[2019-05-21 21:18] LABS: Abs Immature Grans 0.02 k/cumm (0.0-0.09); Absolute Basophil Count 0.02 k/cumm (0.0-0.2); Absolute Eosinophil Count 0.06 k/cumm (0.0-0.7); Absolute Lymphocyte Count 1.79 k/cumm (1.2-3.4); Absolute Monocyte Count 0.41 k/cumm (0.11-0.7); Absolute Neutrophil Count 4.58 k/cumm (1.2-6.7); Basophils % 0.3; Eosinophils % 0.9; HCT 33.7 % (36.0-46.0); HGB 10.7 g/dL (12.0-15.5); Immature Grans % 0.3; Mean Corp. HGB Concentration 31.8 g/dL (32.0-36.0); Mean Corpuscular Hemoglobin 30.7 pg (27.0-33.0); Mean Corpuscular Volume 96.6 fL (80-95); Mean Platelet Volume 8.7 fL (8.0-11.0); Neutrophils % 66.5; Platelet Count 370 x1000/uL (130-400); RBC 3.49 m/cumm (4.00-5.20); RBC Distribution Width 16.2 % (11.7-14.6); White Blood Cell Count 6.88 k/cumm (4.4-10.8)
--- NOTE | 2019-05-21 21:18 | DI.RAD_ITS ---
EXAM: XR PORTABLE CHEST AP INDICATION: cough. COMPARISON: XR CHEST 2V PA LATERAL from 04/11/2019 TECHNIQUE: 2D digital imaging was performed. FINDINGS: Improved aeration of the lungs when compared with the previous examination. There is a patchy opacit y in the left lung base. Pleural thickening and/or scarring is identified in the left lung base. The re is no pneumothorax. Heart is not enlarged. No acute bony abnormality is seen. IMPRESSION: Overall improved aeration of the lungs compared with the previous study. A patchy density in the left lung base could reflect subsegmental atelectasis or pneumonia, aspiration in the right clinical sett ing. Note is also made of pleural thickening and/or scarring in the left lung base.
[2019-05-21 21:20] LABS: BE (Venous) -0.4 mmol/L (-3-3); HCO3 (Venous) 23 mmol/L (22-28); O2 Sat (Venous) 91 % (70-80); TCO2 (Venous) 21 mmol/L (22-29); pCO2 (Venous) 29 mm/Hg (34-47); pH (Venous) 7.51 (7.32-7.43); pO2 (Venous) 65 mm/Hg (28-44)
[2019-05-21 21:48] LABS: ALT 43 U/L (14-59); AST 52 U/L (15-37); Albumin 3.6 g/dL (3.4-5.0); Alkaline Phosphatase 156 U/L (46-116); Anion Gap 17.4 mmol/L (3-11); BUN 16 mg/dL (7-18); Bilirubin, Total 0.5 mg/dL (0.2-1.0); CO2 21.6 mmol/L (21.0-32.0); CREATININE 0.89 mg/dL (0.55-1.02); Calcium 9.6 mg/dL (8.5-10.1); Chloride 106 mmol/L (98-107); Glucose 96 mg/dL (70-100); Magnesium 1.7 mg/dL (1.8-2.4); Potassium 3.4 mmol/L (3.5-5.1); Sodium 145 mmol/L (136-145); Total Protein 7.2 g/dL (6.4-8.2)
--- NOTE | 2019-05-21 21:52 | NUR.NOTE ---
Nursing Note: Pt states she wants the light off and to sleep. Pt's rr rate has decreased. Pt encouraged to remain in bed, as she often tries to exit through the end of bed. Repositioning done, offered toileting.
--- NOTE | 2019-05-21 21:57 | NUR.NOTE ---
Nursing Note: pt requesting to see MD and call me RCT, I'm going home
--- NOTE | 2019-05-21 22:02 | DI.VRAD_ITS ---
PROCEDURE INFORMATION: Exam: XR Chest, 1 View Exam date and time: 05/21/2019 21:19 Clinical history: 74 years old, female; Cough TECHNIQUE: Imaging protocol: XR of the chest Views: 1 view. COMPARISON: CR XR CHEST 2V PA LATERAL 04/11/2019 11:57 FINDINGS: Lungs: Overall improved aeration of the lungs compared to the previous study. Patchy opacity in the left lung base. Low lung volumes. Pleural space: Pleural thickening and/or scarring is suspected at the left lung base. No pneumothorax. Heart/Mediastinum: No cardiomegaly. Bones/joints: No acute-appearing bony pathology including old rib fractures, chronic appearing ostial lysis of both distal clavicles, could represent ununited fracture bilaterally. IMPRESSION: 1. Overall improved aeration of the lungs compared to the previous study. Patchy opacity in the left lung base could reflect subsegmental atelectasis, pneumonia or aspiration in the right clinical setting. 2. Pleural thickening and/or scarring is suspected at the left lung base. Less likely effusion. Dictated and Authenticated by: Yadira Hernandez MD. Ordering:ALICIA Ramirez MD
[2019-05-21] MEDS: levoFLOXacin 500 MG, levoFLOXacin 250 MG 750 MG PO (22:42)
[2019-05-21] MEDS: Inhaler, Assist Device 1 EACH MC (22:50)
[2019-05-21] MEDS: Albuterol HFA 8 GM 60 PUFF INH IH (22:50)
--- NOTE | 2019-05-21 22:57 | NUR.NOTE ---
Nursing Note: Attempted to assist pt from stretcher to wheelchair as asked. Once in wheelchair and assisted to dress, removed IV. As documented in IV removal, bleeding present- arms waving around and pt refuses to have this nurse hold pressure. This nurse states please, please, please be careful! Pt snaps at this nurse, Don't say Juan to me again. This nurse assures pt that this word was not used, pt continues to states just don't say Juan to me again, do you hear me?. This nurse acknowledges an understanding of this request and again attempts to reassure this pt that these words were not used. Pt does not accept this. MD made aware. Pt encouraged to stay and not leave AMA, due to condition and risks of leaving. Pt states she is going to leave no matter what and acknowledges the risks associated with leaving, up to and including or permanent disability. Assisted by wheelchair into RCT. Pt able to ambulates short distance on own. Uses assistive device at home for ambulation. Pt on care management list for close follow up. High level of concern for decompensation at home and non- compliance with prescriptions. Pt determined to have capacity by MD to sign AMA paperwork.
== END 2019-05-21 22:45 | disposition left against medical advice (07) ==
LOC: ER 22:22
PROVIDERS: Emergency Provider Student in an Organized Health Care Education/Training Program; PCP Family Medicine
DX: J18.9 Pneumonia, unspecified organism (principal); R91.8 Other nonspecific abnormal finding of lung field; R00.0 Tachycardia, unspecified; E87.3 Alkalosis; Z53.29 Procedure and treatment not carried out because of patient's decision for other reasons
CPT/HCPCS: 80053; 82805; 93005; 94640; 96374; 99285; 71045; 83735; 85025; 93010; J2930; J7613

== ENCOUNTER 2019-05-22 14:06 | Emergency (ER) | payer OTHER, SELFPAY ==
[2019-05-22] VITALS (54 sets, daily range): BP systolic 154–165; BP diastolic 82–108; PULSE 118–130; RESP 15–36; TEMP 36.6–37.7; O2SAT 83–100
--- NOTE | 2019-05-22 14:13 | DI.RAD_ITS ---
EXAM: XR CHEST 2V PA LATERAL INDICATION: fever, recent flu, r/o pneumonia. COMPARISON: No exams were available for comparison TECHNIQUE: 2D digital imaging was performed. FINDINGS: Atelectasis versus infiltrate in the left lower lobe. Left rib fractures, age indeterminate. 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
--- NOTE | 2019-05-22 14:18 | ED.GENADUL_ITS ---
Discharge Plan Disposition Patient Disposition: AGAINST MEDICAL ADVICE Condition: Fair Discharge Details Chief Complaint: SOB Clinical Impression: Pneumonia, Influenza A Primary Care Provider: Lavelle Galindo ED Provider: Megan Foster Home Meds and New Rx's Prescriptions: Continued potassium chloride [Klor-Con M10] 10 mEq tablet,ER particles/crystals 20 meq PO BID@0800,2000 RF: 0 acetaminophen [Tylenol Extra Strength] 500 mg tablet 1,000 mg PO Q8H PRN PRNRF: 0 lidocaine 5 % adhesive patch,medicated 1 patch TP DAILY RF: 0 gabapentin 300 mg capsule 300 mg PO BID Qty: 90 RF: 5 celecoxib [Celebrex] 100 mg capsule 100 mg PO DAILY PRN (Reason: pain) Qty: 30 RF: 2 metoprolol tartrate 50 mg tablet 50 mg PO BID Qty: 60 RF: 2 venlafaxine 150 mg capsule,extended release 24hr 150 mg PO QAM Qty: 0 RF: 0 folic acid 1 mg Tablet 1 mg PO DAILY Qty: 14 RF: 0 multivitamin [Multiple Vitamins] Tablet 1 tab PO DAILY Qty: 0 RF: 0 thiamine mononitrate (vit B1) [Vitamin B-1 (mononitrate)] 100 mg Tablet 100 mg PO DAILY Qty: 0 RF: 0 oseltamivir [Tamiflu] 75 mg capsule 75 mg PO DAILY Qty: 9 RF: 0 bisacodyl 10 mg Suppository 10 mg WV PRN PRNRF: 0 amlodipine 10 mg Tablet 10 mg PO DAILY Qty: 0 RF: 0 pantoprazole 40 mg Tablet,Delayed Release (Dr/Ec) 40 mg PO DAILY@0730 Qty: 0 RF: 0 albuterol sulfate 90 mcg/actuation HFA aerosol inhaler 2 puff IH Q4H PRN (Reason: shortness of breath) Qty: 8.5 RF: 0 levofloxacin 750 mg tablet 750 mg PO DAILY Qty: 4 RF: 0 magnesium oxide [MagOx] 400 mg (241.3 mg magnesium) tablet 400 mg PO BID Qty: 30 RF: 0 Discharge Instructions Instructions: H1N1 Influenza (ED), Pneumonia (ED) Additional Instructions: Take the doxycycline and Tamiflu until finished. Use your albuterol inhaler as needed and directed for shortness of breath, wheezing or cough. Take [id number] cough and cold medication to help with cold symptoms. Follow-up with your primary care doctor next week for reevaluation. Return to the emergency department if you develop any worsening or new concerning symptoms. Discharge Data Discharge Date/Time-TO BE ENTERED AT DEPARTURE: 05/22/19 18:35 Discharge Physician: Megan Foster Medical Decision Making 74-year-old female with history of chronic alcohol abuse, GERD, hypertension, hyperlipidemia who presents for shortness of breath for the past 2 days. Was seen here 3 days ago diagnosed with the flu and started on Tamiflu. She was seen here yesterday for worsening symptoms diagnosed with pneumonia and sent home with doxycycline and albuterol. Heart rate 130s. Oxygen saturation within normal limits on room air. She has crackles in bases bilaterally. Due to age and history, will place an IV, check screening labs, give neb treatment, fluids, chest x-ray and EKG and reassess. EKG notes a rate of 121, sinus, T wave inversion in lead III, no acute ST elevation or depression, no acute change from previous. Labs and imaging reviewed. Lactate 2.7. Magnesium 1.6. Troponin negative. BNP 424. Chest x-ray notes atelectasis versus infiltrate left lung base. Heart rate still 130s. She was given 2 L IV fluids. Discussed with patient that I recommend admission for her tachycardia and symptoms but she is refusing. The risks of and disability due to a serious pathology were explained and she fully understands and is still requesting to leave. AMA form signed. She is advised to finish her Tamiflu, doxycycline and use the albuterol inhaler as needed and directed. She is advised to follow-up with her primary care doctor return her anytime if worse. Patient states she was unaware of her prescriptions for Tamiflu and doxycycline. She states she has a caregiver that helps her with this. 1 dose of doxycycline and Tamiflu given here prior to leaving. Medical Records Medical records reviewed: Yes I reviewed the patient's medical records. Imaging Data Radiologic Study: Radiologist's impression: XR Chest, 2 Views Exam date and time: 05/22/2019 2:17 PM Clinical history: 74 years old, female; Shortness of breath TECHNIQUE: Imaging protocol: XR of the chest Views: 2 views. COMPARISON: XR PORTABLE CHEST AP 05/21/2019 9:19 PM FINDINGS: Lungs: Atelectasis versus infiltrate in the left base. Pleural space: Cannot exclude left pleural effusion. Heart/Mediastinum: Unremarkable. No cardiomegaly. Bones/joints: Left rib fractures, age undetermined. 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 IMPRESSION: Atelectasis versus infiltrate in the left base. Cannot exclude left pleural effusion. Left rib fractures, age undetermined. 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 Lab Data Lab results reviewed: Yes I reviewed the patient's lab results. Labs: Laboratory Tests Range/Units 05/22/19 05/22/19 05/22/19 14:22 14:22 14:22 WBC (4.4-10.8) k/cumm 7.60 RBC (4.00-5.20) m/cumm 3.56 L Hgb (12.0-15.5) g/dL 11.0 L Hct (36.0-46.0) % 33.9 L MCV (80-95) fL 95.2 H MCH (27.0-33.0) pg 30.9 MCHC (32.0-36.0) g/dL 32.4 RDW (11.7-14.6) % 15.7 H Plt Count (130-400) x1000/uL 390 MPV (8.0-11.0) fL 9.0 Immature Gran % 0.4 Neutrophils % 84.1 Lymphocytes % 7.6 Monocytes % 7.9 Eosinophils % 0.0 Basophils % 0.0 Absolute Neutrophils (1.2-6.7) k/cumm 6.39 Absolute Lymphocytes (1.2-3.4) k/cumm 0.58 L Absolute Monocytes (0.11-0.7) k/cumm 0.60 Absolute Eosinophils (0.0-0.7) k/cumm 0.00 Absolute Basophils (0.0-0.2) k/cumm 0.00 Sodium (136-145) mmol/L 139 Potassium (3.5-5.1) mmol/L 3.4 L Chloride (98-107) mmol/L 99 Carbon Dioxide (21.0-32.0) mmol/L 22.7 Anion Gap (3-11) mmol/L 17.3 H BUN (7-18) mg/dL 18 Creatinine (0.55-1.02) mg/dL 0.95 Estimated GFR/1.73 m2 (mL/min/1.73m2) 57.66 Glucose (70-100) mg/dL 172 H D Lactate (0.6-1.4) mmol/L 2.7 H* Calcium (8.5-10.1) mg/dL 9.9 Magnesium (1.8-2.4) mg/dL 1.6 L Total Bilirubin (0.2-1.0) mg/dL 1.0 AST (15-37) U/L 29 ALT (14-59) U/L 42 Alkaline Phosphatase (46-116) U/L 157 H Troponin I (0.00-0.06) ng/mL < 0.05 NT-Pro-B Natriuret Pep ( - 299) pg/mL Total Protein (6.4-8.2) g/dL 7.5 Albumin (3.4-5.0) g/dL 3.7 Range/Units 05/22/19 05/22/19 14:22 17:14 WBC (4.4-10.8) k/cumm RBC (4.00-5.20) m/cumm Hgb (12.0-15.5) g/dL Hct (36.0-46.0) % MCV (80-95) fL MCH (27.0-33.0) pg MCHC (32.0-36.0) g/dL RDW (11.7-14.6) % Plt Count (130-400) x1000/uL MPV (8.0-11.0) fL Immature Gran % Neutrophils % Lymphocytes % Monocytes % Eosinophils % Basophils % Absolute Neutrophils (1.2-6.7) k/cumm Absolute Lymphocytes (1.2-3.4) k/cumm Absolute Monocytes (0.11-0.7) k/cumm Absolute Eosinophils (0.0-0.7) k/cumm Absolute Basophils (0.0-0.2) k/cumm Sodium (136-145) mmol/L Potassium (3.5-5.1) mmol/L Chloride (98-107) mmol/L Carbon Dioxide (21.0-32.0) mmol/L Anion Gap (3-11) mmol/L BUN (7-18) mg/dL Creatinine (0.55-1.02) mg/dL Estimated GFR/1.73 m2 (mL/min/1.73m2) Glucose (70-100) mg/dL Lactate (0.6-1.4) mmol/L Calcium (8.5-10.1) mg/dL Magnesium (1.8-2.4) mg/dL Total Bilirubin (0.2-1.0) mg/dL AST (15-37) U/L ALT (14-59) U/L Alkaline Phosphatase (46-116) U/L Troponin I (0.00-0.06) ng/mL Cancelled NT-Pro-B Natriuret Pep ( - 299) pg/mL 424 H Total Protein (6.4-8.2) g/dL Albumin (3.4-5.0) g/dL ECG Data Attestation: I personally reviewed and interpreted this ECG (s) as follows: Interpretation: Rate of 121, sinus, no acute ST elevation or depression. WV 144. QTc 460. QRS 90. HPI General Mode of arrival: ambulatory . Date/Time Provider Initiated Documentation: 05/22/19 14:13 . Limitations to Documentation: no limitations . Information obtained by: patient . HPI Narrative: Patient is a 74-year-old female with history of chronic alcohol abuse, GERD, hypertension, hyperlipidemia who presents for shortness of breath for the past 2 days. She was seen here 3 days ago and diagnosed with the flu and started on Tamiflu. She was seen here yesterday for worsening symptoms diagnosed with pneumonia and sent home with doxycycline and albuterol. She denies recent alcohol use. She states she has had diminished appetite. She denies chest pain. She admits to feeling feverish. Related Data Home Medications Medication Instructions Recorded Confirmed folic acid 1 mg PO DAILY #14 tab 08/11/18 05/19/19 acetaminophen 500 mg tablet 1,000 mg PO Q8H PRN PRN tab 04/10/19 05/19/19 lidocaine 5 % topical patch 1 patch TP DAILY 04/10/19 05/19/19 bisacodyl 10 mg WV PRN PRN 04/11/19 05/19/19 amlodipine 10 mg PO DAILY #0 tab 04/17/19 05/19/19 pantoprazole 40 mg PO DAILY@0730 #0 tab 04/17/19 05/19/19 celecoxib 100 mg capsule 100 mg PO DAILY PRN #30 cap 04/27/19 05/19/19 gabapentin 300 mg capsule 300 mg PO BID #90 cap 04/27/19 05/19/19 metoprolol tartrate 50 mg tablet 50 mg PO BID #60 tab 04/27/19 05/19/19 venlafaxine 150 mg 150 mg PO QAM #0 cap 04/27/19 05/19/19 capsule,extended release 24 hr multivitamin [Multiple Vitamins] 1 tab PO DAILY #0 tab 05/03/19 05/19/19 thiamine mononitrate (vit B1) 100 mg PO DAILY #0 tab 05/03/19 05/19/19 [Vitamin B-1 (mononitrate)] potassium chloride 10 mEq 20 meq PO BID@0800,2000 tab 05/09/19 05/19/19 tablet,extended release(part/cryst) oseltamivir [Tamiflu] 75 mg PO DAILY #9 cap 05/19/19 albuterol sulfate 2 puff IH Q4H PRN #8.5 gm 05/21/19 levofloxacin 750 mg PO DAILY #4 tab 05/21/19 magnesium oxide [MagOx] 400 mg PO BID #30 tab 05/21/19 Previous Rx's Medication Instructions Recorded folic acid 1 mg PO DAILY #14 tab 08/11/18 amlodipine 10 mg PO DAILY #0 tab 04/17/19 pantoprazole 40 mg PO DAILY@0730 #0 tab 04/17/19 celecoxib 100 mg capsule 100 mg PO DAILY PRN #30 cap 04/27/19 gabapentin 300 mg capsule 300 mg PO BID #90 cap 04/27/19 metoprolol tartrate 50 mg tablet 50 mg PO BID #60 tab 04/27/19 venlafaxine 150 mg 150 mg PO QAM #0 cap 04/27/19 capsule,extended release 24 hr multivitamin [Multiple Vitamins] 1 tab PO DAILY #0 tab 05/03/19 thiamine mononitrate (vit B1) 100 mg PO DAILY #0 tab 05/03/19 [Vitamin B-1 (mononitrate)] oseltamivir [Tamiflu] 75 mg PO DAILY #9 cap 05/19/19 albuterol sulfate 2 puff IH Q4H PRN #8.5 gm 05/21/19 levofloxacin 750 mg PO DAILY #4 tab 05/21/19 magnesium oxide [MagOx] 400 mg PO BID #30 tab 05/21/19 Allergies Allergy/AdvReac Type Severity Reaction Status Date / Time Penicillins Allergy Mild Rash Verified 05/22/19 14:16 ramipril Allergy Unknown ITCHING Verified 05/22/19 14:16 meperidine [From Demerol] AdvReac Severe Nausea Verified 05/22/19 14:16 bupropion AdvReac Mild GI upset Verified 05/22/19 14:16 AMBER Inhibitors AdvReac Unknown COUGH Verified 05/22/19 14:16 alendronate sodium AdvReac Unknown GI Distress Verified 05/22/19 14:16 clarithromycin AdvReac Unknown intolerant Verified 05/22/19 14:16 paroxetine AdvReac Unknown Diarrhea Verified 05/22/19 14:16 General Stated Complaint: SOB JORDAN: 3 Review of Systems Review of Systems ROS Unobtainable: All systems reviewed & are unremarkable except as noted in HPI and below Constitutional Constitutional: Reports as per HPI, Denies chills and Denies fever(s) Eyes Eyes: Denies blurry vision ENT Ears, Nose, Mouth, and Throat: Denies dizziness, Denies sore throat and Denies throat swelling Cardiovascular Cardiovascular: Denies chest pain and Reports dyspnea Respiratory Respiratory: Denies cough and Reports dyspnea Gastrointestinal Gastrointestinal: Denies abdominal pain, Denies diarrhea and Denies vomiting Genitourinary Genitourinary: Denies hematuria and Denies dysuria Musculoskeletal Musculoskeletal: Denies back pain and Denies numbness Integumentary/Breasts Skin/Breast: Denies lesions and Denies rash Neurologic Neurologic: Denies dizziness, Denies focal weakness and Denies numbness Allergic/Immunologic Allergic/Immunologic: Denies throat swelling [facility] Medical History Alcohol abuse (Chronic) Alcoholic ketosis (Resolved) Allergic rhinitis (Chronic) Anemia (Chronic 12/20/16) Back pain, chronic (Chronic) Cataract (Chronic 11/07/15) Cervical radicular pain (Chronic) neck pain and [facility] Chronic alcoholic gastritis (Chronic 10/12/17) pls refrain from alcohol Corneal ulcer, right (Inactive ~08/23/18) 08/23/18; [facility] Depression (Chronic) Elev transaminase/LDH (Chronic) due to alcohol Falling (Chronic) Genital herpes simplex (Chronic) recurrent gential; suppressive Valtrex GERD (gastroesophageal reflux disease) (Chronic) GI bleed (Chronic 12/20/16) Headache (Chronic) Hyperlipidemia (Chronic) Hypertension (Chronic) high today; she will check readings at home 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 Multiple rib fractures (Acute) 03/11/19 [facility] Non-cardiac chest pain (Chronic 09/21/16) [facility] 09/21/16 NEGATIVE MP Osteoarthritis (Chronic) Osteopenia (Chronic) 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) Pleural effusion on left (Chronic) 03/11/19 [facility] Right rib fracture (Resolved) Sciatica (Chronic) right, epidural injuections [facility] Tendinitis of left rotator cuff (Inactive) Tubular adenoma of colon (Chronic 01/28/17) Urinary incontinence (Chronic) 01/24/13 urethral suspension and sling at [facility] (bladder suspension 1991) Wernicke encephalopathy (Chronic) Surgical History Bladder Surgery suspension Colonoscopy - [facility] (01/28/17) EGD - [facility] (12/20/16) Ligation of fallopian tube Repair bladder injury, simple Family History Mother No problems noted. Father , DROWNED at age 50. No problems noted. Sister Personal history of malignant neoplasm MELANOMA Sister No problems noted. Grandfather Personal history of malignant neoplasm STOMACH Grandfather Personal history of malignant neoplasm PROSTATE Grandmother Heart disease CT Acute ill-defined cerebrovascular disease Grandmother Personal history of malignant neoplasm UTERINE Aunt , CT Heart disease CT Aunt , CT Heart disease Brother No problems noted. Social History Smoking/Tobacco Use Status: Former Tobacco Use Alcohol Intake: former Drug use: Never Details: Patient states her last alcohol intake was 2 days ago 05/19/19-pt states last drink was weeks ago Do you feel safe at home: Yes Do you feel safe in your relationship?: Yes Additional Social history: my caregiver is an anxiety attack person Exam Const General: cooperative, healthy appearing and no acute distress HENMT Head: normal to inspection Face and sinus: normal facial exam Eyes General: appearance normal, both eyes and all related structures Pupils: PERRL EOM: EOM intact bilaterally Neck Neck: normal visual inspection and No submandibular swelling Lymphatic: no lymphadenopathy noted Chest Chest: normal inspection of the chest and no tenderness Resp Effort & Inspection: normal respiratory effort and able to speak in complete sentences Auscultation: crackles bilaterally at the base Cardio Rate: regular rate Rhythm: regular rhythm GI Inspection: normal to inspection Palpation: soft, not firm, not rigid and nontender Auscultation: normal bowel sounds Skin General skin exam: no rashes or lesions noted Neuro General: alert, awake and oriented x3 Cognition: normal cognition Speech: speech normal Motor: muscle tone normal throughout Sensory Exam: no sensory deficits noted Extrem General: normal to inspection, full ROM, normal capillary refill, no calf tenderness bilaterally and no edema Psych Appearance: grossly normal Mental Status: mental status grossly normal Speech and Movement: speech and movement normal Affect: normal affect Course Vital Signs Vital signs: Vital Signs Temperature 97.9 F 05/22/19 14:07 Pulse 130 H 05/22/19 14:07 Respiratory Rate 22 05/22/19 14:07 Blood Pressure 162/92 H 05/22/19 14:07 Pulse Oximetry 96 05/22/19 14:07 Temperature 97.9 F 05/22/19 14:07 Temperature Source Oral 05/22/19 14:07 Pulse 130 H 05/22/19 14:07 Respiratory Rate 22 05/22/19 14:07 Blood Pressure 162/92 H 05/22/19 14:07 Blood Pressure Position Sitting 05/22/19 14:07 Pulse Oximetry 96 05/22/19 14:07 Oxygen Delivery Method Room Air 05/22/19 14:07 Oxygen Flow Rate 0 05/22/19 14:07 Pain Level 6 05/22/19 14:07
[2019-05-22 14:42] LABS: Lactate 2.7 mmol/L (0.6-1.4)
[2019-05-22 14:55] LABS: Abs Immature Grans 0.03 k/cumm (0.0-0.09); Absolute Lymphocyte Count 0.58 k/cumm (1.2-3.4); Absolute Neutrophil Count 6.39 k/cumm (1.2-6.7); HCT 33.9 % (36.0-46.0); Immature Grans % 0.4; Lymphocytes % 7.6; Mean Corp. HGB Concentration 32.4 g/dL (32.0-36.0); Mean Corpuscular Hemoglobin 30.9 pg (27.0-33.0); Mean Corpuscular Volume 95.2 fL (80-95); Monocytes % 7.9; Neutrophils % 84.1; Platelet Count 390 x1000/uL (130-400); RBC 3.56 m/cumm (4.00-5.20); RBC Distribution Width 15.7 % (11.7-14.6)
[2019-05-22] MEDS: Normal Saline 1,000 ML 1000 ML IV (15:02)
[2019-05-22 15:03] LABS: ALT 42 U/L (14-59); AST 29 U/L (15-37); Albumin 3.7 g/dL (3.4-5.0); Alkaline Phosphatase 157 U/L (46-116); Anion Gap 17.3 mmol/L (3-11); BUN 18 mg/dL (7-18); CO2 22.7 mmol/L (21.0-32.0); CREATININE 0.95 mg/dL (0.55-1.02); Calcium 9.9 mg/dL (8.5-10.1); Chloride 99 mmol/L (98-107); Estimated GFR 57.66 (mL/min/1.73m2); Glucose 172 mg/dL (70-100); Magnesium 1.6 mg/dL (1.8-2.4); Potassium 3.4 mmol/L (3.5-5.1); Sodium 139 mmol/L (136-145); Total Protein 7.5 g/dL (6.4-8.2); Troponin I < 0.05 ng/mL (0.00-0.06)
[2019-05-22] MEDS: Normal Saline Flush 10 ML SYR IVP (15:05)
[2019-05-22] MEDS: Ketorolac 30 MG/ML VIAL IVP (15:14)
[2019-05-22] MEDS: Prochlorperazine 10 MG/2 ML VIAL IVP (15:31)
[2019-05-22 16:01] LABS: NT-proBNP 424 pg/mL
[2019-05-22] MEDS: Normal Saline 1,000 ML 125 ML IV (17:09)
--- NOTE | 2019-05-22 17:36 | DI.VRAD_ITS ---
PROCEDURE INFORMATION: Exam: XR Chest, 2 Views Exam date and time: 05/22/2019 2:17 PM Clinical history: 74 years old, female; Shortness of breath TECHNIQUE: Imaging protocol: XR of the chest Views: 2 views. COMPARISON: XR PORTABLE CHEST AP 05/21/2019 9:19 PM FINDINGS: Lungs: Atelectasis versus infiltrate in the left base. Pleural space: Cannot exclude left pleural effusion. Heart/Mediastinum: Unremarkable. No cardiomegaly. Bones/joints: Left rib fractures, age undetermined. 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 IMPRESSION: Atelectasis versus infiltrate in the left base. Cannot exclude left pleural effusion. Left rib fractures, age undetermined. 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 Dictated and Authenticated by: Eugenio Madden MD. Ordering:KATE Guzman MD
[2019-05-22] MEDS: Doxycycline Hyclate 100 MG CAP (18:17)
[2019-05-22] MEDS: Oseltamivir 75 MG CAP (18:17)
== END 2019-05-22 18:35 | disposition left against medical advice (07) ==
PROVIDERS: Emergency Provider Physician Assistant; PCP Family Medicine
DX: J10.00 Influenza due to other identified influenza virus with unspecified type of pneumonia (principal); I10 Essential (primary) hypertension
CPT/HCPCS: 36415; 80053; 93005; 96361; 96374; 96375; 99285; 71046; 83605; 83735; 83880; 84484; 85025; 93010; J0780; J1885

== ENCOUNTER 2019-05-30 11:46 | Outpatient (CLI) | payer OTHER, SELFPAY ==
--- NOTE | 2019-05-30 11:50 | DI.RAD_ITS ---
EXAM: XR CLAVICLE RT LIMITED 1V INDICATION: f/u. COMPARISON: LEFT CLAVICLE LTD from 05/12/2016 XR shoulder RT 1V from 05/09/2019 TECHNIQUE: 2D digital imaging was performed. FINDINGS: There is again seen a comminuted fracture of the distal right clavicle. No change in alignment of th e fracture components is noted. There does appear to be some callus formation about the fracture sug gesting interval healing.
== END 2019-05-30 12:06 ==
PROVIDERS: PCP Family Medicine; Referring Provider Family Medicine; Visit Provider Orthopaedic Surgery
DX: S42.031A Displaced fracture of lateral end of right clavicle, initial encounter for closed fracture (principal); X58.XXXA Exposure to other specified factors, initial encounter
CPT/HCPCS: 99213; 73000

== ENCOUNTER 2019-06-10 19:10 | Inpatient (IN) | payer OTHER, SELFPAY ==
[2019-06-10] VITALS (8 sets, daily range): BP systolic 90–145; BP diastolic 51–66; PULSE 97–124; RESP 20–26; TEMP 36.3–36.8; O2SAT 96–100
--- NOTE | 2019-06-10 20:15 | DI.RAD_ITS ---
EXAM: XR CHEST 2V PA LATERAL INDICATION: cough. COMPARISON: XR CHEST 2V PA LATERAL from 05/22/2019 TECHNIQUE: 2D digital imaging was performed. FINDINGS: Note is again made of multiple left rib fractures with left pleural effusion. Lungs appear grossly c lear. No gross interval change in appearance comparison with examination of May 22. IMPRESSION:
--- NOTE | 2019-06-10 20:15 | DI.CT_ITS ---
EXAM: CT ABDOMEN PELVIS WO CLINICAL HISTORY: ruq abdominal pain w/ vomiting. TECHNIQUE: COMPARISON: ABD PELVIS WO CONTRAST from 05/10/2017 CHEST ABD PELVIS WITH CONTRAST from 08/27/2017 CHEST ABD PELVIS WITH CONTRAST from 08/27/2017 CT CHEST PE CTA from 05/19/2019 XR CHEST 2V PA LATERAL from 05/22/2019 FINDINGS: CT examination of the abdomen and pelvis was performed without contrast administration. Images obtai kika through the lung bases show left pleural effusion and areas of atelectasis the left lung base. N ote is made of hepatic steatosis. Probable gallbladder sludge, ultrasound suggested if clinically in dicated. Spleen is unremarkable. Multiple renal lesions again noted as seen on previous CT examinat ions, nonobstructing left renal stone and right renal stone also noted. No hydronephrosis. Abdomina l aorta is of normal diameter. Fat containing bilateral inguinal hernias and umbilical hernia noted. Presacral lobulated mass again noted unchanged from prior studies including July 2017. Appendi x is normal. No evidence of diverticulitis or bowel obstruction. Pancreas is unremarkable. IMPRESSION: No evidence of acute intra-abdominal process.
[2019-06-10] MEDS: Normal Saline 1,000 ML 1000 ML IV ×2 (20:25→22:08)
[2019-06-10] MEDS: Ondansetron 4 MG/2 ML VIAL (20:25)
--- NOTE | 2019-06-10 20:25 | W.ED.GENAD ---
Discharge Plan Disposition Patient Disposition: [facility] INPATIENT Condition: Improving Discharge Details Chief Complaint: GenMedical Clinical Impression: Sepsis, HCAP (healthcare-associated pneumonia), Vomiting, Abdominal pain, epigastric, Acute kidney injury, Acute dehydration Primary Care Provider: Lavelle Galindo ED Provider: Paul Chavira Home Meds and New Rx's Prescriptions: No Action potassium chloride [Klor-Con M10] 10 mEq tablet,ER particles/crystals 20 meq PO BID@0800,2000 RF: 0 acetaminophen [Tylenol Extra Strength] 500 mg tablet 1,000 mg PO Q8H PRN PRNRF: 0 lidocaine 5 % adhesive patch,medicated 1 patch TP DAILY RF: 0 gabapentin 300 mg capsule 300 mg PO BID Qty: 90 RF: 5 metoprolol tartrate 50 mg tablet 50 mg PO BID Qty: 60 RF: 2 hydrochlorothiazide 12.5 mg tablet 12.5 mg PO DAILY Qty: 90 RF: 3 venlafaxine 150 mg capsule,extended release 24hr 150 mg PO DAILY Qty: 90 RF: 3 venlafaxine 37.5 mg capsule,extended release 24hr 37.5 mg PO DAILY RF: 0 folic acid 1 mg Tablet 1 mg PO DAILY Qty: 14 RF: 0 multivitamin [Multiple Vitamins] Tablet 1 tab PO DAILY Qty: 0 RF: 0 thiamine mononitrate (vit B1) [Vitamin B-1 (mononitrate)] 100 mg Tablet 100 mg PO DAILY Qty: 0 RF: 0 amlodipine 10 mg Tablet 10 mg PO DAILY Qty: 0 RF: 0 pantoprazole 40 mg Tablet,Delayed Release (Dr/Ec) 40 mg PO DAILY@0730 Qty: 0 RF: 0 albuterol sulfate 90 mcg/actuation HFA aerosol inhaler 2 puff IH Q4H PRN (Reason: shortness of breath) Qty: 8.5 RF: 0 levofloxacin 750 mg tablet 750 mg PO DAILY Qty: 4 RF: 0 magnesium oxide [MagOx] 400 mg (241.3 mg magnesium) tablet 400 mg PO BID Qty: 30 RF: 0 Medical Decision Making Patient is a 74-year-old female with history of chronic alcohol abuse, GERD, hypertension, hyperlipidemia, previous rib fracture and hemothorax, medical noncompliance, previous episodes of hypertension and tachycardia secondary to medical noncompliance and failure to take medications, as well as recent diagnosis of influenza in late April, and a recently completed prescription of doxycycline for pneumonia and subsequently Levaquin. She presents today for complaints of shortness of breath, weakness, productive cough, vomiting for the last 24 hours in conjunction with fever. Physical exam demonstrates crackles in the left lower lung field. She has mild to moderate pain in the right upper quadrant of her abdomen. With her symptoms of vomiting, as well as fever and tachycardia which may be secondary to medical noncompliance but may also be secondary to a notable illness we will start blood cultures, rehydrate the patient, get a CT scan to evaluate for acute abdominal pathology including gallbladder disease, evaluate for potential pulmonary pathology and reassess. 9:[address] scan results demonstrate evidence of renal lesion concerning for potential renal cell carcinoma requiring further assessment. There is also left lower lobe infiltrate with effusion, we will start aztreonam, vancomycin, and Levaquin secondary to her allergies. Additionally the gallbladder is notably distended, recommendations for ultrasound for further assessment. Ultrasound will be ordered to evaluate for acute cholecystitis. 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 There is sludge noted. Few red sees no evidence of acute cholecystitis. Laboratory work-up does show notable acute kidney injury, she remains persistently tachycardic here, will continue fluids. She is receiving her second liter of normal saline, after which will start to 1/3 L will be LR. Bicarb is notably low. Troponin normal. EKG sinus tachycardia but no evidence of STEMI. She still has not yet urinated for us. We will place a Lopez. Patient's d-dimer is notably elevated however I feel this is likely secondary to her current septic issue. I have spoken with the hospitalist, he agrees with the assessment and plan. Patient will be admitted to the ICU for further medical management. Diagnosis Healthcare associated pneumonia, distended gallbladder, sepsis. At this time the patient remains hemodynamically stable. She is tachycardic blood pressure is stable. I have extensively reviewed the treatment plan with the patient. I have addressed all patient concerns at this time. I have also discussed the plan with the admitting physician and they agree with the current assessment and plan and have agreed to assume responsibility for the patient. All parties demonstrate verbal understanding and agreement with our assessment and plan at this time. EKG 19: 32 Rate 121, MO 138, QTc 494, QRS 94, sinus tachycardia, no evidence of STEMI. FINDINGS: Lungs: Left lower lobe infiltrate. Pleural space: Left pleural effusion. Heart/Mediastinum: Cardiomegaly. Bones/joints: Old bilateral rib fractures. Degenerative changes of the thoracic spine. Other findings: Left clavicular defects. IMPRESSION: 1. Left lower lobe infiltrate and left pleural effusion. 2. Cardiomegaly. Thank you for allowing us to participate in the care of your patient. Dictated and Authenticated by: Elizabeth Granger MD FINDINGS: Liver: Hepatic steatosis. Gallbladder: Distended gallbladder filled with echogenic material consistent with sludge. Negative Zavala's sign. Common bile duct: Common bile duct 0.4 cm. Pancreas: The pancreas is not seen secondary to bowel gas. Right kidney: 2.7 cm simple right renal cyst. Evaluation of the right kidney is limited secondary to patient's inability to hold her breath. Known hyperdense bilateral renal lesions seen on CT earlier today warrants further evaluation with a dedicated renal CT to rule out renal cell carcinoma. IMPRESSION: 1. Hepatic steatosis. 2. Distended echogenic sludge filled gallbladder. Negative Zavala's sign. 3. Known hyperdense renal lesions not appreciated on this ultrasound. Thank you for allowing us to participate in the care of your patient. Dictated and Authenticated by: Elizabeth Granger MD FINDINGS: Lungs: Left lower lobe infiltrate. Pleural space: Left pleural effusion. Heart: Cardiomegaly. Liver: Hepatic steatosis. Gallbladder and bile ducts: Distended hyperdense gallbladder may represent sludge. Consider ultrasound for further evaluation distended gallbladder. Pancreas: Normal. No ductal dilation. Spleen: Normal. No splenomegaly. Adrenals: Normal. No mass. Kidneys and ureters: Stable bilateral renal cysts. 2.0 cm hyperdense nodule in the lower pole of the right kidney, which warrants further evaluation with a dedicated renal CT to rule out renal cell carcinoma. In addition there are several tiny hyperdensities in the upper pole of the right kidney and in the midpole of the left kidney which warrants further evaluation with a dedicated renal CT. Stomach and bowel: Unremarkable. No obstruction. No mucosal thickening. Appendix: No evidence of appendicitis. Intraperitoneal space: Unremarkable. No free air. No significant fluid collection. Vasculature: Unremarkable. No abdominal aortic aneurysm. Lymph nodes: Unremarkable. No enlarged lymph nodes. Bladder: Unremarkable as visualized. Reproductive: Unremarkable as visualized. Bones/joints: Multiple old bilateral rib fractures. Multilevel degenerative changes of the thoracic spine and the lumbar spine. Soft tissues: Fat distention of the inguinal canals. Dependent edema in the posterior back. IMPRESSION: 1. Distended hyperdense gallbladder. Consider ultrasound for further evaluation to rule out cholecystitis. 2. Left lower lobe infiltrate with left pleural effusion. 3. Hyperdense renal lesions warrants further evaluation with dedicated renal CT to rule out renal cell carcinoma. The largest hyperdense lesion measures 2.0 cm. 4. Hepatic steatosis. Thank you for allowing us to participate in the care of your patient. Dictated and Authenticated by: Elizabeth Granger MD [facility] General Date/Time Provider Initiated Documentation: 06/10/19 19:19. [facility] Narrative: Patient is a 74-year-old female with history of chronic alcohol abuse, GERD, hypertension, hyperlipidemia, previous rib fracture and hemothorax, medical noncompliance, previous episodes of hypertension and tachycardia secondary to medical noncompliance and failure to take medications, as well as recent diagnosis of influenza in late April, and a recently completed prescription of doxycycline for pneumonia and subsequently Levaquin. She presents today for complaints of shortness of breath, weakness, productive cough, vomiting for the last 24 hours in conjunction with fever. She denies any hematemesis, dark tarry stools, coffee-ground emesis, she does admit to mild epigastric and right upper quadrant abdominal pain. She does admit to occasional alcohol. Patient denies any chest pain, chest tightness, tearing sensation in her chest. She denies any recent falls or trauma. She has no other complaints at this time. Related Data Home Medications Medication Instructions Recorded Confirmed folic acid 1 mg PO DAILY #14 tab 08/11/18 06/10/19 acetaminophen 500 mg tablet 1,000 mg PO Q8H PRN PRN tab 04/10/19 06/10/19 lidocaine 5 % topical patch 1 patch TP DAILY 04/10/19 06/10/19 amlodipine 10 mg PO DAILY #0 tab 04/17/19 06/10/19 pantoprazole 40 mg PO DAILY@0730 #0 tab 04/17/19 06/10/19 gabapentin 300 mg capsule 300 mg PO BID #90 cap 04/27/19 06/10/19 metoprolol tartrate 50 mg tablet 50 mg PO BID #60 tab 04/27/19 06/10/19 multivitamin [Multiple Vitamins] 1 tab PO DAILY #0 tab 05/03/19 06/10/19 thiamine mononitrate (vit B1) 100 mg PO DAILY #0 tab 05/03/19 06/10/19 [Vitamin B-1 (mononitrate)] potassium chloride 10 mEq 20 meq PO BID@0800,2000 tab 05/09/19 06/10/19 tablet,extended release(part/cryst) albuterol sulfate 2 puff IH Q4H PRN #8.5 gm 05/21/19 06/10/19 levofloxacin 750 mg PO DAILY #4 tab 05/21/19 06/10/19 magnesium oxide [MagOx] 400 mg PO BID #30 tab 05/21/19 06/10/19 hydrochlorothiazide 12.5 mg tablet 12.5 mg PO DAILY #90 tab 06/08/19 06/10/19 venlafaxine 150 mg 150 mg PO DAILY #90 cap 06/08/19 06/10/19 capsule,extended release 24 hr venlafaxine 37.5 mg 37.5 mg PO DAILY 06/08/19 06/10/19 capsule,extended release 24 hr Previous Rx's Medication Instructions Recorded folic acid 1 mg PO DAILY #14 tab 08/11/18 amlodipine 10 mg PO DAILY #0 tab 04/17/19 pantoprazole 40 mg PO DAILY@0730 #0 tab 04/17/19 gabapentin 300 mg capsule 300 mg PO BID #90 cap 04/27/19 metoprolol tartrate 50 mg tablet 50 mg PO BID #60 tab 04/27/19 multivitamin [Multiple Vitamins] 1 tab PO DAILY #0 tab 05/03/19 thiamine mononitrate (vit B1) 100 mg PO DAILY #0 tab 05/03/19 [Vitamin B-1 (mononitrate)] albuterol sulfate 2 puff IH Q4H PRN #8.5 gm 05/21/19 levofloxacin 750 mg PO DAILY #4 tab 05/21/19 magnesium oxide [MagOx] 400 mg PO BID #30 tab 05/21/19 hydrochlorothiazide 12.5 mg tablet 12.5 mg PO DAILY #90 tab 06/08/19 venlafaxine 150 mg 150 mg PO DAILY #90 cap 06/08/19 capsule,extended release 24 hr Allergies Allergy/AdvReac Type Severity Reaction Status Date / Time Penicillins Allergy Mild Rash Verified 05/30/19 11:15 ramipril Allergy Unknown ITCHING Verified 05/30/19 11:15 meperidine [From Demerol] AdvReac Severe Nausea Verified 05/30/19 11:15 bupropion AdvReac Mild GI upset Verified 05/30/19 11:15 AMBER Inhibitors AdvReac Unknown COUGH Verified 05/30/19 11:15 alendronate sodium AdvReac Unknown GI Distress Verified 05/30/19 11:15 clarithromycin AdvReac Unknown intolerant Verified 05/30/19 11:15 paroxetine AdvReac Unknown Diarrhea Verified 05/30/19 11:15 General Stated Complaint: GenMedical JORDAN: 3 Review of Systems Review of Systems ROS Unobtainable: All systems reviewed & are unremarkable except as noted in HPI and below PFSH Social History Smoking/Tobacco Use Status: Former Tobacco Use Alcohol Intake: current Alcohol Intake frequency: 3 or more drinks per day Alcohol type: hard liquor Drug use: Never Substance use type: does not use Details: Patient states her last alcohol intake was 2 days ago 05/19/19-pt states last drink was weeks ago Do you feel safe at home: Yes Do you feel safe in your relationship?: Yes Additional Social history: my caregiver is an anxiety attack person Exam Narrative Exam Narrative: 1.Const: Elderly appearing 2.Eyes: PERRL, no conjunctival injection, and symmetrical lids. 3.ENT: Atraumatic external nose and ears. dry MM. Neck: Symmetric, trachea midline, No thyromegaly. 4.CVS: +S1/S2, No murmurs or gallops. Peripheral pulses 2+ and equal in all extremities. Brisk capillary refill in all extremities. 5.RESP: Unlabored respiratory effort. Crackles in the bases bilaterally primarily on the left lower lung gatica. 6.GI: Soft, nondistended, pain is present in the right upper abdominal quadrant. No guarding or rebound. Questionably positive Zavala sign, no pain at McBurney's point. Negative obturator and psoas sign. 7.MSK: Normocephalic/Atraumatic, Extremities w/o deformity or ttp No cyanosis or clubbing, Normal movement of all extremities 8.Skin: Warm, Dry. No rashes or lesions. 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 Sensation grossly intact, no focal neurologic deficits. 10.Psych: (AAO) x3. Appropriate mood and affect Course Vital Signs Vital signs: Vital Signs Temperature 36.7 C 06/10/19 19:18 Pulse 121 H 06/10/19 19:18 Respiratory Rate 20 06/10/19 19:18 Blood Pressure 132/55 L 06/10/19 19:18 Pulse Oximetry 100 06/10/19 19:18 Temperature 36.7 C 06/10/19 19:18 Temperature Source Skin 06/10/19 19:18 Pulse 121 H 06/10/19 19:18 Respiratory Rate 20 06/10/19 19:40 Respiratory Effort 06/10/19 19:40 Respiratory Depth Normal 06/10/19 19:40 Respiratory Pattern Normal 06/10/19 19:40 Blood Pressure 132/55 L 06/10/19 19:18 Blood Pressure Position Supine 06/10/19 19:18 Pulse Oximetry 100 06/10/19 19:18 Oxygen Delivery Method Room Air 06/10/19 19:18 Oxygen Flow Rate 0 06/10/19 19:18 Lab/Test Results Lab/Test Results: 06/10/19 20:10 Nasopharynx Influenza Types A,B Antigen - Pending 06/10/19 19:14 Blood Blood Culture - Pending 06/10/19 19:14 Blood Blood Culture - Pending
[2019-06-10 20:27] LABS: Abs Immature Grans 0.03 k/cumm (0.0-0.09); Absolute Monocyte Count 0.44 k/cumm (0.11-0.7); Basophils % 0.2; HCT 36.4 % (36.0-46.0); HGB 11.5 g/dL (12.0-15.5); Immature Grans % 0.2; Lymphocytes % 4.5; Mean Corp. HGB Concentration 31.6 g/dL (32.0-36.0); Mean Corpuscular Hemoglobin 31.1 pg (27.0-33.0); Mean Corpuscular Volume 98.4 fL (80-95); Monocytes % 3.4; Neutrophils % 91.7; Platelet Count 308 x1000/uL (130-400); RBC Distribution Width 16.8 % (11.7-14.6); White Blood Cell Count 12.98 k/cumm (4.4-10.8)
[2019-06-10 20:30] LABS: Absolute Basophil Count 0.03 k/cumm (0.0-0.2); Absolute Lymphocyte Count 0.58 k/cumm (1.2-3.4)
--- NOTE | 2019-06-10 20:30 | DI.VRAD_ITS ---
PROCEDURE INFORMATION: Exam: XR Chest, 2 Views Exam date and time: 06/10/2019 7:15 PM Clinical history: 74 years old, female; Patient HX: Cough, vomiting TECHNIQUE: Imaging protocol: XR of the chest Views: 2 views. COMPARISON: CR XR CHEST 2V PA LATERAL 22/05/2019 15:59 FINDINGS: Lungs: Left lower lobe infiltrate. Pleural space: Left pleural effusion. Heart/Mediastinum: Cardiomegaly. Bones/joints: Old bilateral rib fractures. Degenerative changes of the thoracic spine. Other findings: Left clavicular defects. IMPRESSION: 1. Left lower lobe infiltrate and left pleural effusion. 2. Cardiomegaly. Dictated and Authenticated by: Elizabeth Granger MD. Ordering:SHADI Miller MD
--- NOTE | 2019-06-10 20:35 | NUR.NOTE ---
BIBA from home with c/o not feeling well today. Cough, SOB, vomiting today. Reports abd pain with palpation. arrives with #20 LAC from EMS, +flush, +BR. ST on monitor. crackles in LLL. Recent admission for pna, finished levaquin at home. Pt requesting washcloth for eyes, states eyes are very sensitive. Daily drinker, reports last drink yesterday.
--- NOTE | 2019-06-10 20:42 | DI.VRAD_ITS ---
PROCEDURE INFORMATION: Exam: CT Abdomen And Pelvis Without Contrast Exam date and time: 06/10/2019 8:02 PM Clinical history: 74 years old, female; Abdominal pain; Localized; Right upper quadrant (ruq); Patient HX: Epigastric pain, vomiting TECHNIQUE: Imaging protocol: Computed tomography of the abdomen and pelvis without contrast. Radiation optimization: All CT scans at this facility use at least one of these dose optimization techniques: automated exposure control; mA and/or kV adjustment per patient size (includes targeted exams where dose is matched to clinical indication); or iterative reconstruction. COMPARISON: CT CHEST/ABD/PEL WO 11/03/2019 08:00 FINDINGS: Lungs: Left lower lobe infiltrate. Pleural space: Left pleural effusion. Heart: Cardiomegaly. Liver: Hepatic steatosis. Gallbladder and bile ducts: Distended hyperdense gallbladder may represent sludge. Consider ultrasound for further evaluation distended gallbladder. Pancreas: Normal. No ductal dilation. Spleen: Normal. No splenomegaly. Adrenals: Normal. No mass. Kidneys and ureters: Stable bilateral renal cysts. 2.0 cm hyperdense nodule in the lower pole of the right kidney, which warrants further evaluation with a dedicated renal CT to rule out renal cell carcinoma. In addition there are several tiny hyperdensities in the upper pole of the right kidney and in the midpole of the left kidney which warrants further evaluation with a dedicated renal CT. Stomach and bowel: Unremarkable. No obstruction. No mucosal thickening. Appendix: No evidence of appendicitis. Intraperitoneal space: Unremarkable. No free air. No significant fluid collection. Vasculature: Unremarkable. No abdominal aortic aneurysm. Lymph nodes: Unremarkable. No enlarged lymph nodes. Bladder: Unremarkable as visualized. Reproductive: Unremarkable as visualized. Bones/joints: Multiple old bilateral rib fractures. Multilevel degenerative changes of the thoracic spine and the lumbar spine. Soft tissues: Fat distention of the inguinal canals. Dependent edema in the posterior back. IMPRESSION: 1. Distended hyperdense gallbladder. Consider ultrasound for further evaluation to rule out cholecystitis. 2. Left lower lobe infiltrate with left pleural effusion. 3. Hyperdense renal lesions warrants further evaluation with dedicated renal CT to rule out renal cell carcinoma. The largest hyperdense lesion measures 2.0 cm. 4. Hepatic steatosis. Dictated and Authenticated by: Elizabeth Granger MD. Ordering:SHADI Miller MD
--- NOTE | 2019-06-10 20:42 | NUR.NOTE ---
Pt vomited approx 300mL in CT per golf technician. Fan aware, n/o for zofran. Pt reports being daily drinker. last drink yesterday. Appears tremulous. Pt denies feeling tremors. Denies XIONG. Phlebo in to draw BCx2. NS infusing through #20 LAC, pt encouraged to keep arm straight to allow NS to infuse.
[2019-06-10 20:48] LABS: ALT 30 U/L (14-59); AST 39 U/L (15-37); Albumin 3.8 g/dL (3.4-5.0); Alkaline Phosphatase 130 U/L (46-116); Anion Gap 38.1 mmol/L (3-11); BUN 27 mg/dL (7-18); Bilirubin, Total 1.3 mg/dL (0.2-1.0); CO2 8.9 mmol/L (21.0-32.0); CREATININE 1.87 mg/dL (0.55-1.02); Chloride 99 mmol/L (98-107); Estimated GFR 26.39 (mL/min/1.73m2); Glucose 258 mg/dL (70-100); Lipase 58 U/L (73-393); Potassium 3.7 mmol/L (3.5-5.1); Sodium 146 mmol/L (136-145); Total Protein 7.3 g/dL (6.4-8.2)
[2019-06-10 20:50] LABS: Troponin I < 0.05 ng/mL (0.00-0.06)
[2019-06-10] MEDS: AZTREONAM 2,000 MG in Normal Saline 100 ML 200 MG IVPB (21:00)
--- NOTE | 2019-06-10 21:00 | DI.US_ITS ---
EXAM: US ABDOMEN LIMITED CLINICAL HISTORY: ruq pain, distended GB. TECHNIQUE: Ultrasound performed using standard protocol. COMPARISON: ABDOMEN ULTRASOUND (P) from 12/18/2016 FINDINGS: Visualized liver parenchyma is normal in appearance. There is mild gallbladder distention and sludge without discrete gallstone. No biliary dilatation. Pancreas unremarkable as visualized. There are at least 2 right renal cysts. Limited visualization of the left kidney. Spleen is unremarkable. A angela and IVC are of normal diameter. IMPRESSION: No evidence of cholelithiasis. Hyperdense renal lesions noted on CT, thought to be cysts stable, are not identified on ultrasound. Additional evaluation with contrast-enhanced CT or renal protocol MRI should be considered if clinically appropriate to evaluate these lesions.
[2019-06-10 21:07] LABS: D-Dimer 1556 ng/mlFEU (<500); PTT Activated 22.1 sec (21.0-31.4); Prothrombin Time 9.6 sec (9.3-11.0)
[2019-06-10 22:05] LABS: Lactate 8.4 mmol/L (0.6-1.4)
[2019-06-10] MEDS: levoFLOXacin 750 MG/150 ML BAG 100 MG IVPB (22:07)
--- NOTE | 2019-06-10 22:16 | DI.VRAD_ITS ---
PROCEDURE INFORMATION: Exam: US Abdomen Limited, Right Upper Quadrant Exam date and time: 06/10/2019 9:35 PM Clinical history: 74 years old, female; Other: Ruq/epigastric pain and tenderness; Additional info: Limited study due to PT condition/inability to hold breath. TECHNIQUE: Imaging protocol: Real-time ultrasound of the abdomen with image documentation. Examination was focused on the right upper quadrant. COMPARISON: US ABDOMEN ULTRASOUND (P) 18/12/2016 14:47 FINDINGS: Liver: Hepatic steatosis. Gallbladder: Distended gallbladder filled with echogenic material consistent with sludge. Negative Zavala's sign. Common bile duct: Common bile duct 0.4 cm. Pancreas: The pancreas is not seen secondary to bowel gas. Right kidney: 2.7 cm simple right renal cyst. Evaluation of the right kidney is limited secondary to patient's inability to hold her breath. Known hyperdense bilateral renal lesions seen on CT earlier today warrants further evaluation with a dedicated renal CT to rule out renal cell carcinoma. IMPRESSION: 1. Hepatic steatosis. 2. Distended echogenic sludge filled gallbladder. Negative Zavala's sign. 3. Known hyperdense renal lesions not appreciated on this ultrasound. Dictated and Authenticated by: Elizabeth Granger MD. Ordering:SHADI Miller MD
[2019-06-10] MEDS: Labetalol 100 MG/20 ML VIAL 10 MG IVP (22:43)
[2019-06-10] MEDS: Ondansetron 4 MG/2 ML VIAL IVP (22:44)
[2019-06-10 23:14] LABS: Bilirubin Negative (Negative); Blood Negative (Negative); Clarity Clear (Clear); Glucose Negative (Negative); Ketones 80 mg/dL (Negative); Leukocyte Esterase Negative (Negative); Nitrite Negative (Negative); Specific Gravity 1.025 (1.005-1.025); Urobilinogen 0.2 EU/dL (Up TO 0.2); pH 5.5 (5-8)
--- NOTE | 2019-06-10 23:31 | NUR.NOTE ---
Pt provided with phone to call son to inform of admission. Report to Licha in ICU.
[2019-06-11] VITALS (83 sets, daily range): BP systolic 113–161; BP diastolic 59–99; PULSE 78–115; RESP 1–43; TEMP 36.7–37; O2SAT 88–100
--- NOTE | 2019-06-11 00:11 | NUR.NOTE ---
Report to Devin in ICU, pt transported up with all belongings.
--- NOTE | 2019-06-11 00:18 | HPE_ITS ---
Date of service: 06/11/19 Time of Service: 00:18 Assessment and Plan Assessment and plan (1) Community acquired pneumonia of left lower lobe of lung: Status: Acute Assessment and plan: Given her failure to respond to outpatient antibiotics and her prior multiple hospitalization, I will cover her w/ broad spectrum antibiotics including Vancomycin and Cefepime but will continue Levaquin for double coverage of Pseudomonas as well as coverage for atypical organisms. She will receive stress dose corticosteroids per sepsis protocol, supplemental oxygen and mucolytics. (2) Sepsis: Status: Acute Assessment and plan: aggressive iv fluid hydration. Her [id number] echocardiogram showed hyperdynamic LV and RV function with no dilatation of her RV. She has greater than 50% respirophasic change in her IVC suggestive that she can tolerate a fluid challenge. Her blood pressure is stable at this point therefore I do not think she needs vasopressor support. I will check serial blood lactate and procalcitonin levels and continue with broad-spectrum antibiotics as outlined above. Qualifiers: Acute renal failure type: unspecified Sepsis acute organ dysfunction status: with acute organ dysfunction Sepsis type: sepsis due to unspecified organism Severe sepsis acute organ dysfunction type: acute renal failure (3) Lactic acidosis: Status: Acute Assessment and plan: Probably multifactorial cause for lactic acidosis including dehydration along with acute kidney injury in the setting of sepsis. I had some concerns for possible ischemic bowel however her abdominal exam is fairly benign compared to her complaints. She does not have rebound tenderness nor involuntary guarding and no Zavala sign. Ultrasound of her gallbladder is reassuring and that there is no pericholecystic fluid or gallbladder wall thickening to suggest an acute cholecystitis. (4) Acute kidney injury (nontraumatic): Status: Acute Assessment and plan: Multifactorial in origin including dehydration and sepsis as well as continued use of her diuretic. (5) Renal mass: Status: Suspected Assessment and plan: I have ordered renal US to follow up on the suspicous right renal mass seen on her non-contrast CT of her abdomen. Of note, no renal mass was mentioned on recent CT of her abdomen and pelvis from 04/11/2019 but veronica al cysts were mentioned. (6) Alcohol abuse: Status: Chronic Assessment and plan: Patient continues to abuse alcohol her last alcoholic drink was yesterday she had 2 shots of vodka. She has a history of acute alcohol withdrawal therefore we will monitor using the [facility] of alcohol withdrawal assessment. Present time I do not feel that she needs prophylactic benzodiazepines. If she can tolerate her oral pills she will continue on thiamine and multivitamin otherwise we will switch it to IV multivitamin and thiamine. History of Present Illness History of Present Illness Chief Complaint: cough, nausea and vomiting, abdominal pain Narrative: 74-year-old female with a history of alcoholism, GERD, hypertension, hyperlipidemia, previous rib fractures and hemothorax, right clavicular fracture, medical noncompliance, depression, chronic pain presents emergency department with 1 week history of cough productive of purulent sputum along with chills but no rigors and developed acute nausea and vomiting and epigastric abdominal pain today. Patient has been on outpatient treatment with oral antibiotics including Levaquin for the past f ew days. Prior to that she been diagnosed with influenza and treated with Tamiflu on May 19, 2019. Evaluation in the emergency room today included a CT scan of her abdomen and pelvis along with chest x-ray and abdominal ultrasound. Chest x-ray showed a left lower lobe infiltrate and pleural effusion along with cardiomegaly. CT of the abdomen and pelvis without contrast was performed and shows fatty liver as well as a distended hyperdense gallbladder suggestive of sludge. Pancreas sp emir and adrenals appear to be normal. Patient has bilateral renal cysts which appear to be stable however a 2 cm hyperdense nodule in the lower pole of the right kidney is concerning for renal cell carcinoma there are several tiny hypodensities in the upper pole the right kidney in the midpole of the left kidney that warrant further work-up with a renal CT. Abdominal ultrasound again demonstrates hepatic steatosis along with distended echogenic sludge in the gallbladder but negative Zavala sign. Laboratory studies showed a leukocytosis of 12,980. Stable chronic anemia with hemoglobin 11.5 g hematocrit 36%. There is a leftward shift in her white cell count was 11,900 neutrophils. Chemistry panel demonstrated acute kidney injury with a BUN of 26 creatinine 1.6 along with an anion gap metabolic acidosis with an anion gap of 22.5 and a carbon dioxide 18.5. Blood lactate level was elevated at 8.4. Troponin level was normal at less than 0.05. Procalcitonin is elevated at 0.5. Pro time and PTT were normal and her d-dimer is elevated at 1556. Urinalysis showed ketones of 80 mg/dL but was negative for protein blood nitrites bilirubin or leukocyte esterase. Treatment in the emergency department included couple liters of lactated Ringer's solution along with Zofran for her nausea Lola role lack for her pain and initiation of parenteral antibiotics including Levaquin and vancomycin. Patient is now being admitted to the intensive care unit for treatment of sepsis secondary to pneumonia along with metabolic acidosis and acute kidney injury and protracted nausea and vomiting and dehydration. Review of Systems Constitutional Constitutional: Reports anorexia, Reports body ache(s), Reports chills, Reports fatigue, Reports fever(s), Reports headache(s), Reports malaise, Reports poor appetite and Reports weakness Eyes Eyes: Reports system reviewed and no additional complaints, except as docu ENT Ears, Nose, Mouth, and Throat: Reports system reviewed and no additional complaints, except as docu and Reports headache(s) Cardiovascular Cardiovascular: Reports system reviewed and no additional complaints, except as docu, Reports dyspnea and Reports dyspnea on exertion Respiratory Respiratory: Reports change in phlegm color, Reports chest congestion, Reports cough, Reports excessive phlegm production, Reports pain with cough, Reports dyspnea, Reports dyspnea on exertion and Reports wheezing Gastrointestinal Gastrointestinal: Denies hematochezia, Denies coffee ground emesis, Reports nausea and Reports vomiting Genitourinary Genitourinary: Reports system reviewed and no additional complaints, except as docu Musculoskeletal Musculoskeletal: Reports system reviewed and no additional complaints, except as docu Integumentary/Breasts Skin/Breast: Reports system reviewed and no additional complaints, except as docu Neurologic Neurologic: Reports system reviewed and no additional complaints, except as docu, Reports headache(s) and Reports weakness Endocrine Endocrine: Reports system reviewed and no additional complaints, except as docu and Reports fatigue Hematologic/Lymphatic Hematologic/Lymphatic: Reports system reviewed and no additional complaints, except as docu Allergic/Immunologic Allergic/Immunologic: Reports system reviewed and no additional complaints, except as docu and Reports wheezing [facility] Medical History Alcohol abuse (Chronic) Alcoholic ketosis (Resolved) Allergic rhinitis (Chronic) Anemia (Chronic 12/20/16) Back pain, chronic (Chronic) Cataract (Chronic 11/07/15) Cervical radicular pain (Chronic) neck pain and [facility] Chronic alcoholic gastritis (Chronic 10/12/17) pls refrain from alcohol Corneal ulcer, right (Inactive ~08/23/18) 08/23/18; UV-kb Depression (Chronic) Elev transaminase/LDH (Chronic) due to alcohol Falling (Chronic) Genital herpes simplex (Chronic) recurrent gential; suppressive Valtrex GERD (gastroesophageal reflux disease) (Chronic) GI bleed (Chronic 12/20/16) Headache (Chronic) Hyperlipidemia (Chronic) Hypertension (Chronic) high today; she will check readings at home 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 Multiple rib fractures (Acute) 03/11/19 [facility] Non-cardiac chest pain (Chronic 09/21/16) [facility] 09/21/16 NEGATIVE MP Osteoarthritis (Chronic) Osteopenia (Chronic) 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) Pleural effusion on left (Chronic) 03/11/19 [facility] Right rib fracture (Resolved) Sciatica (Chronic) right, epidural injuections [facility] Tendinitis of left rotator cuff (Inactive) Tubular adenoma of colon (Chronic 01/28/17) Urinary incontinence (Chronic) 01/24/13 urethral suspension and sling at [facility] (bladder suspension 1991) Wernicke encephalopathy (Chronic) Surgical History Bladder Surgery suspension Colonoscopy - MAC (01/28/17) EGD - MAC (12/20/16) Ligation of fallopian tube Repair bladder injury, simple Family History Mother No problems noted. Father , DROWNED at age 50. No problems noted. Sister Personal history of malignant neoplasm MELANOMA Sister No problems noted. Grandfather Personal history of malignant neoplasm STOMACH Grandfather Personal history of malignant neoplasm PROSTATE Grandmother Heart disease [place] Acute ill-defined cerebrovascular disease Grandmother Personal history of malignant neoplasm UTERINE Aunt , [place] Heart disease [place] Aunt , [place] Heart disease Brother No problems noted. Social History Smoking/Tobacco Use Status: Former Tobacco Use Alcohol Intake: current Alcohol Intake frequency: 3 or more drinks per day A lcohol type: hard liquor Drug use: Never Substance use type: does not use Details: Patient states her last alcohol intake was 2 days ago 05/19/19-pt states last drink was weeks ago Do you feel safe at home: Yes Do you feel safe in your relationship?: Yes Additional Social history: my caregiver is an anxiety attack person Meds Home Medications and Allergies Home Medications Medication Instructions Recorded Confirmed Type folic acid 1 mg PO DAILY #14 tab 08/11/18 06/10/19 Rx acetaminophen 500 mg tablet 1,000 mg PO Q8H PRN PRN tab 04/10/19 06/10/19 History lidocaine 5 % topical patch 1 patch TP DAILY 04/10/19 06/10/19 History amlodipine 10 mg PO DAILY #0 tab 04/17/19 06/10/19 Rx pantoprazole 40 mg PO DAILY@0730 #0 tab 04/17/19 06/10/19 Rx gabapentin 300 mg capsule 300 mg PO BID #90 cap 04/27/19 06/10/19 Rx metoprolol tartrate 50 mg tablet 50 mg PO BID #60 tab 04/27/19 06/10/19 Rx multivitamin [Multiple Vitamins] 1 tab PO DAILY #0 tab 05/03/19 06/10/19 Rx thiamine mononitrate (vit B1) 100 mg PO DAILY #0 tab 05/03/19 06/10/19 Rx [Vitamin B-1 (mononitrate)] potassium chloride 10 mEq 20 meq PO BID@0800,2000 tab 05/09/19 06/10/19 History tablet,extended release(part/cryst) albuterol sulfate 2 puff IH Q4H PRN #8.5 gm 05/21/19 06/10/19 Rx levofloxacin 750 mg PO DAILY #4 tab 05/21/19 06/10/19 Rx magnesium oxide [MagOx] 400 mg PO BID #30 tab 05/21/19 06/10/19 Rx hydrochlorothiazide 12.5 mg tablet 12.5 mg PO DAILY #90 tab 06/08/19 06/10/19 Rx venlafaxine 150 mg 150 mg PO DAILY #90 cap 06/08/19 06/10/19 Rx capsule,extended release 24 hr venlafaxine 37.5 mg 37.5 mg PO DAILY 06/08/19 06/10/19 History capsule,extended release 24 hr Allergies Allergy/AdvReac Type Severity Reaction Status Date / Time Penicillins Allergy Mild Rash Verified 05/30/19 11:15 ramipril Allergy Unknown ITCHING Verified 05/30/19 11:15 meperidine [From Demerol] AdvReac Severe Nausea Verified 05/30/19 11:15 bupropion AdvReac Mild GI upset Verified 05/30/19 11:15 AMBER Inhibitors AdvReac Unknown COUGH Verified 05/30/19 11:15 alendronate sodium AdvReac Unknown GI Distress Verified 05/30/19 11:15 clarithromycin AdvReac Unknown intolerant Verified 05/30/19 11:15 paroxetine AdvReac Unknown Diarrhea Verified 05/30/19 11:15 Exam Const General: cooperative, in distress moderate, disheveled and ill appearing acutely Nutritional Appearance: average body habitus Orientation: alert, awake and oriented x3 Neck Neck: normal visual inspection, full ROM, supple and no JVD Thyroid: thyroid normal Carotids: normal carotid upstroke Lymphatic: no lymphadenopathy noted Chest Chest: normal inspection of the chest Resp Effort & Inspection: cough Quality of cough: wet and tachypneic Auscultation: bronchovesicular breath sounds bilaterally and crackles bilaterally at the base Cardio Jugular venous pressure: no JVD Palpation: normal PMI Rate: tachycardic Rhythm: regular rhythm Pulses: normal peripheral pulses GI Inspection: distended Palpation: soft, no hepatosplenomegaly and no guarding Percussion: normal to percussion Auscultation: hyperactive bowel sounds Rectal Exam - female: deferred General: bladder normal to inspection, bladder normal to palpation and No CVA tenderness Bimanual Exam- Vagina & Uterus: bladder normal to palpation Back/Spine/Pelvis Back: no CVA tenderness Cervical Spine: normal cervical lordosis Thoracic/Lumbar Spine: thoracic and lumbar spine normal to inspection Skin General skin exam: no rashes or lesions noted, elasticity normal and turgor normal Neuro General: alert, awake, oriented x3, moves all extremities and no focal motor deficits Cognition: normal cognition Speech: speech normal Motor: muscle tone normal throughout, strength 5/5 throughout and no movement abnormalities noted Sensory Exam: no sensory deficits noted Extrem General: normal to inspection, full ROM, normal capillary refill, no joint enlargement, no clubbing, cyanosis or edema, no pedal edema and no calf tenderness Psych Appearance: disheveled Mental Status: mental status grossly normal Speech and Movement: speech and movement normal Mood: congruent mood Affect: normal affect Attitude: cooperative Thought Process: normal Thought Content: normal Insight: fair Judgment: fair Results Imaging Chest x-ray: image reviewed Abdomen CT scan report/results: report reviewed Abdominal ultrasound report/results: report reviewed Labs Result diagrams: 06/11/19 06:50 06/11/19 06:50 Labs: Laboratory Results - last 24 hr 06/10/19 06/10/19 06/10/19 20:10 20:10 20:10 WBC 12.98 H RBC 3.70 L Hgb 11.5 L Hct 36.4 MCV 98.4 H MCH 31.1 MCHC 31.6 L RDW 16.8 H Plt Count 308 MPV 9.0 Immature Gran % 0.2 Neutrophils % 91.7 Lymphocytes % 4.5 Monocytes % 3.4 Eosinophils % 0.0 Basophils % 0.2 Absolute Neutrophils 11.90 H Absolute Lymphocytes 0.58 L Absolute Monocytes 0.44 Absolute Eosinophils 0.00 Absolute Basophils 0.03 PT 9.6 INR 1.0 APTT 22.1 D-Dimer Sodium 146 H Potassium 3.7 Chloride 99 Carbon Dioxide 8.9 L Anion Gap 38.1 H BUN 27 H Creatinine 1.87 H Estimated GFR/1.73 m2 26.39 Glucose 258 H Lactate Calcium 10.0 Total Bilirubin 1.3 H AST 39 H ALT 30 Alkaline Phosphatase 130 H Troponin I < 0.05 Total Protein 7.3 Albumin 3.8 Lipase 58 L Urine Color Urine Clarity Urine pH Ur Specific Sidney Urine Protein Urine Ketones Urine Blood Urine Nitrite Urine Bilirubin Urine Urobilinogen Ur Leukocyte Esterase Urine Glucose 06/10/19 06/10/19 06/10/19 20:10 20:55 21:50 WBC RBC Hgb Hct MCV MCH MCHC RDW Plt Count MPV Immature Gran % Neutrophils % Lymphocytes % Monocytes % Eosinophils % Basophils % Absolute Neutrophils Absolute Lymphocytes Absolute Monocytes Absolute Eosinophils Absolute Basophils PT INR APTT D-Dimer 1556 H Sodium Potassium Chloride Carbon Dioxide Anion Gap BUN Creatinine Estimated GFR/1.73 m2 Glucose Lactate Cancelled 8.4 H* Calcium Total Bilirubin AST ALT Alkaline Phosphatase Troponin I Total Protein Albumin Lipase Urine Color Urine Clarity Urine pH Ur Specific Sidney Urine Protein Urine Ketones Urine Blood Urine Nitrite Urine Bilirubin Urine Urobilinogen Ur Leukocyte Esterase Urine Glucose 06/10/19 23:00 WBC RBC Hgb Hct MCV MCH MCHC RDW Plt Count MPV Immature Gran % Neutrophils % Lymphocytes % Monocytes % Eosinophils % Basophils % Absolute Neutrophils Absolute Lymphocytes Absolute Monocytes Absolute Eosinophils Absolute Basophils PT INR APTT D-Dimer Sodium Potassium Chloride Carbon Dioxide Anion Gap BUN Creatinine Estimated GFR/1.73 m2 Glucose Lactate Calcium Total Bilirubin AST ALT Alkaline Phosphatase Troponin I Total Protein Albumin Lipase Urine Color Yellow Urine Clarity Clear Urine pH 5.5 Ur Specific Sidney 1.025 Urine Protein Negative Urine Ketones 80 H Urine Blood Negative Urine Nitrite Negative Urine Bilirubin Negative Urine Urobilinogen 0.2 Ur Leukocyte Esterase Negative Urine Glucose Negative Last Vital Signs Temp 36.3 C L 06/10/19 23:16 Pulse 99 H 06/10/19 23:31 Resp 24 06/10/19 23:31 BP 119/58 L 06/10/19 23:31 Pulse Ox 99 06/10/19 23:31
[2019-06-11 01:17] LABS: Lactate 4.9 mmol/L (0.6-1.4)
[2019-06-11 01:25] LABS: Anion Gap 22.5 mmol/L (3-11); BUN 26 mg/dL (7-18); CO2 18.5 mmol/L (21.0-32.0); Calcium 8.8 mg/dL (8.5-10.1); Chloride 105 mmol/L (98-107); Glucose 271 mg/dL (70-100); Potassium 3.7 mmol/L (3.5-5.1); Sodium 146 mmol/L (136-145)
[2019-06-11] MEDS: Lactated Ringers 1,000 ML 250 ML IV ×2 (01:29→05:49)
[2019-06-11 01:40] LABS: Troponin I < 0.05 ng/mL (0.00-0.06)
[2019-06-11 01:51] LABS: Procalcitonin 0.5 ng/mL
[2019-06-11] MEDS: Benzonatate 200 MG CAP PO ×4 (01:52→20:37)
[2019-06-11] MEDS: guaiFENesin 600 MG TABCR PO ×3 (01:52→20:36)
[2019-06-11] MEDS: Hydrocortisone SOD SUC. 100 MG VIAL IVP (01:52)
[2019-06-11] MEDS: Albuterol/Ipratropium 3 ML UPD VIAL UPD ×3 (01:52→19:15)
[2019-06-11] MEDS: CEFEPIME 2 GM in Normal Saline 100 ML IVPB (02:45)
[2019-06-11] MEDS: Hydrocortisone SOD SUC. 100 MG VIAL 50 MG IVP ×3 (05:48→19:15)
[2019-06-11 07:03] LABS: Lactate 1.8 mmol/L (0.6-1.4)
[2019-06-11 07:07] LABS: Abs Immature Grans 0.01 k/cumm (0.0-0.09); Absolute Lymphocyte Count 0.26 k/cumm (1.2-3.4); Absolute Neutrophil Count 6.38 k/cumm (1.2-6.7); HGB 10.1 g/dL (12.0-15.5); Immature Grans % 0.1; Lymphocytes % 3.7; Mean Corp. HGB Concentration 31.6 g/dL (32.0-36.0); Mean Corpuscular Hemoglobin 30.2 pg (27.0-33.0); Mean Corpuscular Volume 95.8 fL (80-95); Mean Platelet Volume 8.6 fL (8.0-11.0); Monocytes % 5.7; Neutrophils % 90.5; Platelet Count 185 x1000/uL (130-400); RBC 3.34 m/cumm (4.00-5.20); RBC Distribution Width 16.6 % (11.7-14.6); White Blood Cell Count 7.05 k/cumm (4.4-10.8)
[2019-06-11 07:35] LABS: ALT 26 U/L (14-59); AST 24 U/L (15-37); Albumin 3.2 g/dL (3.4-5.0); Alkaline Phosphatase 107 U/L (46-116); Anion Gap 11.6 mmol/L (3-11); BUN 22 mg/dL (7-18); Bilirubin, Total 1.1 mg/dL (0.2-1.0); CO2 28.4 mmol/L (21.0-32.0); CREATININE 1.37 mg/dL (0.55-1.02); Calcium 8.7 mg/dL (8.5-10.1); Chloride 107 mmol/L (98-107); Estimated GFR 37.79 (mL/min/1.73m2); Glucose 213 mg/dL (70-100); Potassium 3.3 mmol/L (3.5-5.1); Sodium 147 mmol/L (136-145); Total Protein 6.3 g/dL (6.4-8.2)
[2019-06-11 07:38] LABS: Troponin I < 0.05 ng/mL (0.00-0.06)
[2019-06-11] MEDS: Thiamine 100 MG TAB PO (08:30)
[2019-06-11] MEDS: amLODIPine 10 MG TAB PO (08:30)
[2019-06-11] MEDS: Pantoprazole 40 MG TABCR PO (08:30)
[2019-06-11] MEDS: Metoprolol 50 MG TAB PO ×2 (08:30→20:37)
[2019-06-11] MEDS: Venlafaxine 37.5 MG CAPCR PO (08:30)
[2019-06-11] MEDS: Venlafaxine 150 MG CAPCR PO (08:30)
[2019-06-11] MEDS: Gabapentin 300 MG CAP PO ×2 (08:30→20:37)
[2019-06-11] MEDS: Multivitamin TAB 1 TAB PO (08:30)
[2019-06-11] MEDS: Magnesium Oxide 400 MG TAB PO ×2 (08:30→21:53)
[2019-06-11] MEDS: Folic Acid 1 MG TAB PO (08:31)
[2019-06-11] MEDS: Heparin 5,000 UNITS/ML VIAL 5000 UNITS SC ×2 (08:31→15:44)
[2019-06-11] MEDS: POTASSIUM CHLORIDE/0.45% NACL 1,000 ML 150 MEQ IV ×2 (08:56→19:24)
[2019-06-11] MEDS: Lidocaine 5% Patch 1 PATCH TP (09:03)
--- NOTE | 2019-06-11 09:39 | PHARADMIT ---
Addendum entered by Tarah Benjamin 06/19/19 11:00: Pharmacy Note Subjective Objective BP 163/78, HR 96, Afebrile, Mag 1.7, Procalcitonin today: 0.2 H/H down 9.6/30.8, CIWA zero Micro blood/urine: negative, Chest xray: possible pneumonia Assessment Cefepime was renally adjusted, day #9 Vanco was re-added 06/18 based on Procalcitonin which was 0.3 Flagyl orally continues Plan trough entered for 11am 06/20/19, unless the Vanco is dc'd prior Addendum entered by Licha Atkinson 06/16/19 11:57: Pharmacy Note Subjective chest xray, pt consult ordered Objective BP-147/85 HR-91 other VS okay mag-1.7 Assessment vanco discontinued cefepime and metronidazole continues (day6) magnesium replacement given multivitamin with minerals ordered daily, regular multivitamin discontinued Plan recheck procalcitonin tomorrow Addendum entered by Licha Atkinson 06/15/19 12:38: Pharmacy Note Subjective pt continues to improve but was mildly tachycardic this morning per morning report Objective VS okay mag-1.6 Assessment vanco,cefepime and metronidazole continue (day5) procalcitonin today 0.2 heparin changed to enoxaparin, IV fluids started, IV mag replacement given Plan vanco trough ordered for tomorrow @1300 Original Note: Admission Pharmacy Clinical Review sepsis, pneumonia, acute kidney injury Code Status Full Code Current Weight 61.235 kg Renally Cleared and Narrow Therapeutic Index Meds Crcl ~27.5 mL/min -gabapentin: crcl >15-29 recommended 200-700 daily -magnesium: use with caution, renally excreted -metronidazole: no dose adjustments; metabolites may accumulate, monitor for adverse effects -venlafaxine: Crcl<30 recommended to reduce daily dose by 50% or more QTc Value / Action Taken QTc 494 pt has venlafaxine and albuterol ordered BP Control, Fever BP 148/73 afebrile Electrolytes reviewed Na 147 K+3.3 DVT Prophylaxis heparin Opiate Usage / Scheduled Bowel Regimen Ordered no/prn Plt/SCr for Heparin / Enoxaparin plt 185 SCr 1.37 INR for Warfarin n/a H/H stable, WBC/Bands h/h 10.1/32.0 WBC 7.05 Antibiotic appropriateness cefepime, metronidazole, and vanco Cultures and Sensitivities blood and urine cultures pending rapid flu negative Surgical ABX d/c within 24 hr n/a DM control / Insulin Dosing BG 213 none Heart Failure (Check EF%) (AMBER's, B-Block, Diuretics) amlodipine, metoprolol, IV to PO Switch n/a Home Meds Reviewed -multiple forms of vitamin D increase risk of toxicity -separate admin of magnesium from gabapentin and levofloxacin. also separate admin of levofloxacin from multivitamin Home Meds Not Ordered cholecalciferol, cyanocobalamin, flonase, hydrochlorothiazide, levofloxacin (was discontinued), naltrexone, potassium chloride (has fluids w/K+ running), pyridoxine, ranitidine Comments renal ultrasound ordered watch for QTc prolonging meds
[2019-06-11] MEDS: metroNIDAZOLE 500 MG TAB PO ×2 (09:42→15:44)
[2019-06-11] MEDS: VANCOMYCIN 750 MG in Normal Saline 250 ML 166.667 MG IVPB (10:26)
--- NOTE | 2019-06-11 11:00 | DI.US_ITS ---
EXAM: US RENAL CLINICAL HISTORY: renal lesions on CT of abdomen. TECHNIQUE: Ultrasound performed using standard protocol. COMPARISON: No exams were available for comparison FINDINGS: Renal ultrasound was performed. There is limited visualization of the kidneys due to patient's body habitus and inability to cooperate. Two cystic lesions of the right kidney are noted. Additional re nal lesions identified on CT are not identified. Correlation with contrast-enhanced CT or renal prot ocol MRI should be considered to evaluate these lesions. IMPRESSION:
[2019-06-11 12:01] LABS: Lactate 1.1 mmol/L (0.6-1.4)
[2019-06-11 12:09] LABS: Anion Gap 9.3 mmol/L (3-11); BUN 18 mg/dL (7-18); CO2 28.7 mmol/L (21.0-32.0); CREATININE 1.21 mg/dL (0.55-1.02); Calcium 8.5 mg/dL (8.5-10.1); Chloride 106 mmol/L (98-107); Estimated GFR 43.62 (mL/min/1.73m2); Glucose 210 mg/dL (70-100); Potassium 3.2 mmol/L (3.5-5.1); Sodium 144 mmol/L (136-145)
[2019-06-11] MEDS: Albuterol 2.5 MG/3 ML INH SOLN VIAL UPD (12:15)
--- NOTE | 2019-06-11 15:31 | PDOC.CMIN ---
- If Service Date Differs Date of service: 06/11/19 Time of Service: 15:31 Care Management Initial Assess REASON FOR HOSPITALIZATION:: Sepsis, pneumonia, AMBER PAST MEDICAL HISTORY/PAST SURGICAL HISTORY:: Medical: Alcohol abuse (Chronic), Alcoholic ketosis (Resolved), Allergic rhinitis (Chronic), Anemia (Chronic 12/20/16); Back pain, chronic (Chronic). Cataract (Chronic 11/07/15); Cervical radicular pain (Chronic); Chronic alcoholic gastritis (Chronic 10/12/17); Depression (Chronic); Elev transaminase/LDH (Chronic),Falling (Chronic), Genital herpes simplex (Chronic); GERD (gastroesophageal reflux disease) (Chronic); GI bleed (Chronic 12/20/16); Headache (Chronic); Hyperlipidemia (Chronic); Hypertension (Chronic); Macrocytosis (Chronic 09/26/14); Multiple rib fractures (Acute); Non-cardiac chest pain (Chronic 09/21/16); Osteoarthritis (Chronic); Osteopenia (Chronic); 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). Pleural effusion on left (Acute); Right rib fracture (Resolved); Sciatica (Chronic); Tubular adenoma of colon (Chronic 01/28/17); Urinary incontinence (Chronic); Wernicke encephalopathy (Chronic). Surgical: Bladder Surgery; Colonoscopy - MAC (01/28/17); EGD - MAC (12/20/16); Ligation of fallopian tube; Repair bladder injury, simple PREVIOUS FUNCTIONAL STATUS/SOCIAL/FAMILY SUPPORTS:: Leticia lives alone at her home in [place] with her dog. She has a caregiver, Armida (cell: [phone]; home: [phone]), who assists her with med management and homemaking. She is otherwise independent with ADL's. Leticia also mentioned her son, Bennie who is a strong support, but lives in [place]. She does not drive, but uses [facility] to travel locally. CURRENT FUNCTIONAL STATUS:: Leticia was lying in bed when CM met with her. She was pleasant and engaged in conversation. She stated that she is not feeling very well, especially since she was walking around with the nurse. CAPO discussed with her the importance of movement and how it helps with healing. She reported that she knows she will be at [facility] for a few days, and that Armida (her caregiver) and her sister, Robyn, will check in on her dog and cats. She is comfortable with the plan. CM will follow. ADVANCE DIRECTIVES:: None on file, but there is a durable POA, naming Clarence Garza as agent. Has patient been provided with information about the portal?: Yes Did the patient sign up for the portal?: Yes CODE STATUS:: Full Code INSURANCE COVERAGE / FINANCIAL ISSUES:: Commercial MCR replacement. Financial Assist 70%. CURRENT HOME/COMMUNITY SERVICES/EQUIPMENT:: Leticia has a caregiver, Armida, who assists with her med management and home making. She also has current home health services. She owns a FWW. PRIMARY CARE PHYSICIAN:: Lavelle Galindo POTENTIAL DISCHARGE NEEDS:: Evaluations for further needs, follow up appointments. PATIENT/FAMILY EDUCATION NEEDS:: Review of community supports, discharge plan, discussion of self care needs upon discharge, including [employer]. ANTICIPATED BARRIERS TO DISCHARGE:: None identified at this time. TRANSPORTATION:: [employer] private vehicle, coordinated by CM. PLAN:: Anticipate Leticia will return home when medically cleared with a resumption of services- nursing, PT & OT. CM to coordinate transportation via [facility]. CM will continue to support Leticia with decision making regarding discharge planning.
[2019-06-11] MEDS: Acetaminophen 325 MG TAB PO ×2 (15:44→22:01)
--- NOTE | 2019-06-11 18:45 | W.PM.PROGNOT ---
Date of Service Date of service: 06/11/19 Time of Service: 18:46 Assessment and Plan Assessment and plan (1) Sepsis: Status: Acute Assessment and plan: Sepsis based on evidence of tachypnea, tachycardia, leukocytosis, with evidence of pneumonia by imaging. Patient also had a significantly elevated lactic acid with initial AMBER that has so far been responsive to IV fluid resuscitation. -Given numerous recent hospitalizations continue broad-spectrum antibiotic coverage with Vanco and cefepime. There was concern regarding aspiration, and metronidazole was added this morning to that regimen as well. Continue to monitor culture data carefully. Continue and wean stress dose steroids, IV fluid resuscitation. Supplemental O2 as needed. ?Please note that the patient has a history of prior hemothorax following a fall and rib fracture, as well as notes of a pleural effusion currently surrounding her infection. Very low threshold for surgical consult for a thoracentesis if the patient's symptoms do not improve or fail to respond to current treatment. Qualifiers: Sepsis type: sepsis due to unspecified organism Sepsis acute organ dysfunction status: with acute organ dysfunction Severe sepsis acute organ dysfunction type: acute renal failure Acute renal failure type: unspecified (2) Acute kidney injury (nontraumatic): Status: Acute Assessment and plan: Appears to be responding well to IV fluids. Continue and monitor renal function carefully, renally dose medications when appropriate, and avoid nephrotoxins. (3) Renal mass: Status: Suspected Assessment and plan: Will need contrast-enhanced CT or renal protocol MRI for full evaluation once acute illness is better controlled. (4) Alcohol abuse: Status: Chronic Assessment and plan: Currently showing no signs of withdrawl. Of note, patient has not shown any signs of withdrawl during multiple prior hospitalizations, with lone tachycardia and HTN being due to repeated medication noncompliance (BB therapy, antihypertensive regimen) Has previously declined offers for multiple different strategies aimed at assisting her at home and as an outpatient in the past. Has also been dropped by Home Health Services due to intoxication during visits, limiting their ability to effectively help. Has in the past expressed some interest in a sobriety instructional coach. Discussed importance of abstinence in detail with patient on multiple prior occasions. Will maintain on CIWA protocol and monitor symptoms. (5) Hypertension: Status: Chronic Assessment and plan: Currently being maintained on CCB and BB therapy, with HCTZ on hold. Please note in the past Mrs. Garza has required a number of medications, including ARB and spironolactone, for better control of her blood pressure. Currently on IV fluids for sepsis. Will monitor blood pressure carefully and titrate current medications and initiate new ones as needed. (6) GERD (gastroesophageal reflux disease): Status: Chronic Assessment and plan: Continue PPI therapy. (7) DVT prophylaxis: Status: Acute Assessment and plan: SC heparin given AMBER. Subjective Subjective Interval history since last seen: 73-year-old woman with a history of chronic alcoholism and frequent falls, with a somewhat recent development of a hemothorax requiring hospitalization and chest tube placement, admitted from [facility] Emergency Department 06/10 with apparent sepsis from a suspected pulmonary source. Ms. Ingram has a Past Medical History significant for EtOH abuse with frequent falls while intoxicated, HTN, GERD, prior GIB and Gastritis, as well as a history of alcoholic pancreatitis. She has been seen in the ED on multiple occasions after falls, and was hospitalized here with fractures in the past. She was apparently hospitalized at [facility] between 03/11 and 03/21 with rib fractures and hemothorax, requiring placement of a chest tube. The patient presented to the ED with a one-week complaint of cough with production of purulent sputum, along with subjective chills and fever. She had also undergone treatment with oral levofloxacin as an outpatient. Of note, the patient has undergone treatment with oseltamivir on May 19 for diagnosis of influenza. Due to her ongoing nausea and vomiting, Mrs. Garza had also complained of abdominal pain upon presentation to the ED, requiring work-up with a CT scan of her abdomen and pelvis, along with subsequent abdominal ultrasound. A chest x-ray was also obtained. Imaging of the patient's chest was remarkable for multiple left rib fractures with a left-sided pleural effusion unofficial local radiology read, but virtual radiology had read the same image the night before as with a left lower lobe infiltrate and pleural effusion. Her CT was similarly read as without acute intra-abdominal process, hepatic steatosis, and probable gallbladder sludge, along with a nonobstructing bilateral renal stones. Again noted was a pre-sacral lobulated mass unchanged from prior studies dating back to 2017. However, virtual radiology read of the same film included a left lower lobe infiltrate with left pleural effusions, and a hyper dense renal lesion that warrants further evaluation to rule out renal cell CA. The patient's lab work was remarkable for mild leukocytosis with a left shift but no bandemia, evidence of AMBER with a creatinine rise to 1.8, elevated glucose, and significant lactic acidosis with a lactate of 8.4. Her cardiac biomarkers were and remained negative. Lipase was also checked and low. Urinalysis showed no evidence of infection. The patient was initiated on broad-spectrum antibiotic therapy, and referred for admission for further evaluation and treatment for likely sepsis from a pulmonary source. This morning Mrs. Garza appears improved, with improving renal function and quickly normalizing lactate. Renal ultrasound was limited, but showed 2 cystic lesions of the right kidney, with recommendations for additional contrast-enhanced CT or renal protocol MRI for full evaluation of previously noted renal lesions. Patient was noted to have vomited overnight, and there was nursing concern regarding aspiration. She remains afebrile. Exam Narrative Exam Narrative: General: Patient appears chronically ill appearing, asleep but arousable, NAD Neck: Supple CV: Regular, tachycardic, S1S2, No rubs, murmurs, or gallops. Pulmonary: Bibasilar crackles without wheezing on limited anterior lateral exam Abdomen: + Bowel Sounds, soft, nontender, nondistended Vascular: No lower extremity edema Objective Objective Clinical Data: Abnormal lab results 06/10/19 06/10/19 06/10/19 Range/Units 20:10 20:10 20:10 WBC 12.98 H (4.4-10.8) k/cumm RBC 3.70 L (4.00-5.20) m/cumm Hgb 11.5 L (12.0-15.5) g/dL Hct (36.0-46.0) % MCV 98.4 H (80-95) fL MCHC 31.6 L (32.0-36.0) g/dL RDW 16.8 H (11.7-14.6) % Absolute Neutrophils 11.90 H (1.2-6.7) k/cumm Absolute Lymphocytes 0.58 L (1.2-3.4) k/cumm D-Dimer 1556 H (<500) ng/mlFEU Sodium 146 H (136-145) mmol/L Potassium (3.5-5.1) mmol/L Carbon Dioxide 8.9 L (21.0-32.0) mmol/L Anion Gap 38.1 H (3-11) mmol/L BUN 27 H (7-18) mg/dL Creatinine 1.87 H (0.55-1.02) mg/dL Glucose 258 H (70-100) mg/dL Lactate (0.6-1.4) mmol/L Total Bilirubin 1.3 H (0.2-1.0) mg/dL AST 39 H (15-37) U/L Alkaline Phosphatase 130 H (46-116) U/L Total Protein (6.4-8.2) g/dL Albumin (3.4-5.0) g/dL Lipase 58 L (73-393) U/L Urine Ketones (Negative) mg/dL 06/10/19 06/10/19 06/11/19 Range/Units 21:50 23:00 01:05 WBC (4.4-10.8) k/cumm RBC (4.00-5.20) m/cumm Hgb (12.0-15.5) g/dL Hct (36.0-46.0) % MCV (80-95) fL MCHC (32.0-36.0) g/dL RDW (11.7-14.6) % Absolute Neutrophils (1.2-6.7) k/cumm Absolute Lymphocytes (1.2-3.4) k/cumm D-Dimer (<500) ng/mlFEU Sodium 146 H (136-145) mmol/L Potassium (3.5-5.1) mmol/L Carbon Dioxide 18.5 L (21.0-32.0) mmol/L Anion Gap 22.5 H (3-11) mmol/L BUN 26 H (7-18) mg/dL Creatinine 1.60 H (0.55-1.02) mg/dL Glucose 271 H (70-100) mg/dL Lactate 8.4 H* (0.6-1.4) mmol/L Total Bilirubin (0.2-1.0) mg/dL AST (15-37) U/L Alkaline Phosphatase (46-116) U/L Total Protein (6.4-8.2) g/dL Albumin (3.4-5.0) g/dL Lipase (73-393) U/L Urine Ketones 80 H (Negative) mg/dL 1006/11/19 06/11/19 Range/Units 01:05 06:50 06:50 WBC (4.4-10.8) k/cumm RBC (4.00-5.20) m/cumm Hgb (12.0-15.5) g/dL Hct (36.0-46.0) % MCV (80-95) fL MCHC (32.0-36.0) g/dL RDW (11.7-14.6) % Absolute Neutrophils (1.2-6.7) k/cumm Absolute Lymphocytes (1.2-3.4) k/cumm D-Dimer (<500) ng/mlFEU Sodium 147 H (136-145) mmol/L Potassium 3.3 L (3.5-5.1) mmol/L Carbon Dioxide (21.0-32.0) mmol/L Anion Gap 11.6 H (3-11) mmol/L BUN 22 H (7-18) mg/dL Creatinine 1.37 H (0.55-1.02) mg/dL Glucose 213 H (70-100) mg/dL Lactate 4.9 H* 1.8 H (0.6-1.4) mmol/L Total Bilirubin 1.1 H (0.2-1.0) mg/dL AST (15-37) U/L Alkaline Phosphatase (46-116) U/L Total Protein 6.3 L (6.4-8.2) g/dL Albumin 3.2 L (3.4-5.0) g/dL Lipase (73-393) U/L Urine Ketones (Negative) mg/dL 06/11/19 06/11/19 Range/Units 06:50 11:58 WBC (4.4-10.8) k/cumm RBC 3.34 L (4.00-5.20) m/cumm Hgb 10.1 L (12.0-15.5) g/dL Hct 32.0 L (36.0-46.0) % MCV 95.8 H (80-95) fL MCHC 31.6 L (32.0-36.0) g/dL RDW 16.6 H (11.7-14.6) % Absolute Neutrophils (1.2-6.7) k/cumm Absolute Lymphocytes 0.26 L (1.2-3.4) k/cumm D-Dimer (<500) ng/mlFEU Sodium (136-145) mmol/L Potassium 3.2 L (3.5-5.1) mmol/L Carbon Dioxide (21.0-32.0) mmol/L Anion Gap (3-11) mmol/L BUN (7-18) mg/dL Creatinine 1.21 H (0.55-1.02) mg/dL Glucose 210 H (70-100) mg/dL Lactate (0.6-1.4) mmol/L Total Bilirubin (0.2-1.0) mg/dL AST (15-37) U/L Alkaline Phosphatase (46-116) U/L Total Protein (6.4-8.2) g/dL Albumin (3.4-5.0) g/dL Lipase (73-393) U/L Urine Ketones (Negative) mg/dL Vital Signs Temperature 36.8 C 06/11/19 13:00 Temperature Source Temporal Artery Scan 06/11/19 16:48 Pulse 103 H 06/11/19 16:48 Pulse 90 06/11/19 16:01 Respiratory Rate 19 06/11/19 16:48 Respiratory Effort 06/11/19 13:00 Respiratory Depth Normal 06/11/19 13:00 Respiratory Pattern Normal 06/11/19 13:00 Blood Pressure 113/71 06/11/19 16:00 Blood Pressure Mean 79 06/11/19 16:00 Blood Pressure Position Supine 06/11/19 16:48 Pulse Oximetry 93 L 06/11/19 16:48 Oxygen Delivery Method Nasal Cannula 06/11/19 15:35 Oxygen Flow Rate 1 06/11/19 15:35 Pain Level 6 06/11/19 16:48 Comment 06/11/19 16:00 Intake & Output 06/10/19 06/11/19 06/11/19 23:59 11:59 23:59 Intake Total 2099 2540.25 / 4800.25 2260 / 4800.25 Output Total 1600 / 3200 1600 / 3200 Balance 2099 940.25 / 1600.25 660 / 1600.25 Weight 61.235 kg Intake: IV 2099 2300.25 / 4300.25 2000 / 4300.25 Oral 240 / 500 260 / 500 Output: Urine 1600 / 3200 1600 / 3200 Other: Urine Color Yellow Pale Yellow Yellow Urine Appearance Clear Clear Comment functional incontinence Indwelling Lopez catheter with pale clear yellow urine in collection bag. Indwelling Lopez catheter with pale clear yellow urine in collection bag. Laboratory Results WBC 7.05 k/cumm (4.4-10.8) D 06/11/19 06:50 RBC 3.34 m/cumm (4.00-5.20) L 06/11/19 06:50 Hgb 10.1 g/dL (12.0-15.5) L 06/11/19 06:50 Hct 32.0 % (36.0-46.0) L 06/11/19 06:50 MCV 95.8 fL (80-95) H 06/11/19 06:50 MCH 30.2 pg (27.0-33.0) 06/11/19 06:50 MCHC 31.6 g/dL (32.0-36.0) L 06/11/19 06:50 RDW 16.6 % (11.7-14.6) H 06/11/19 06:50 Plt Count 185 x1000/uL (130-400) D 06/11/19 06:50 MPV 8.6 fL (8.0-11.0) 06/11/19 06:50 Immature Gran % 0.1 06/11/19 06:50 Neutrophils % 90.5 06/11/19 06:50 Lymphocytes % 3.7 06/11/19 06:50 Monocytes % 5.7 06/11/19 06:50 Eosinophils % 0.0 06/11/19 06:50 Basophils % 0.0 06/11/19 06:50 Absolute Neutrophils 6.38 k/cumm (1.2-6.7) 06/11/19 06:50 Absolute Lymphocytes 0.26 k/cumm (1.2-3.4) L 06/11/19 06:50 Absolute Monocytes 0.40 k/cumm (0.11-0.7) 06/11/19 06:50 Absolute Eosinophils 0.00 k/cumm (0.0-0.7) 06/11/19 06:50 Absolute Basophils 0.00 k/cumm (0.0-0.2) 06/11/19 06:50 PT 9.6 sec (9.3-11.0) 06/10/19 20:10 INR 1.0 (0.9-1.1) 06/10/19 20:10 APTT 22.1 sec (21.0-31.4) 06/10/19 20:10 D-Dimer 1556 ng/mlFEU (<500) H 06/10/19 20:10 Sodium 144 mmol/L (136-145) 06/11/19 11:58 Potassium 3.2 mmol/L (3.5-5.1) L 06/11/19 11:58 Chloride 106 mmol/L (98-107) 06/11/19 11:58 Carbon Dioxide 28.7 mmol/L (21.0-32.0) 06/11/19 11:58 Anion Gap 9.3 mmol/L (3-11) 06/11/19 11:58 BUN 18 mg/dL (7-18) 06/11/19 11:58 Creatinine 1.21 mg/dL (0.55-1.02) H 06/11/19 11:58 Estimated GFR/1.73 m2 43.62 (mL/min/1.73m2) 06/11/19 11:58 Glucose 210 mg/dL (70-100) H 06/11/19 11:58 Lactate 1.1 mmol/L (0.6-1.4) 06/11/19 11:58 Calcium 8.5 mg/dL (8.5-10.1) 06/11/19 11:58 Total Bilirubin 1.1 mg/dL (0.2-1.0) H 06/11/19 06:50 AST 24 U/L (15-37) 06/11/19 06:50 ALT 26 U/L (14-59) 06/11/19 06:50 Alkaline Phosphatase 107 U/L (46-116) 06/11/19 06:50 Troponin I < 0.05 ng/mL (0.00-0.06) 06/11/19 06:50 Total Protein 6.3 g/dL (6.4-8.2) L 06/11/19 06:50 Albumin 3.2 g/dL (3.4-5.0) L 06/11/19 06:50 Lipase 58 U/L (73-393) L 06/10/19 20:10 Procalcitonin 0.5 ng/mL 06/11/19 01:05 Urine Color Yellow (Yellow) 06/10/19 23:00 Urine Clarity Clear (Clear) 06/10/19 23:00 Urine pH 5.5 (5-8) 06/10/19 23:00 Ur Specific [place] 1.025 (1.005-1.025) 06/10/19 23:00 Urine Protein Negative mg/dL (Negative) 06/10/19 23:00 Urine Ketones 80 mg/dL (Negative) H 06/10/19 23:00 Urine Blood Negative (Negative) 06/10/19 23:00 Urine Nitrite Negative (Negative) 06/10/19 23:00 Urine Bilirubin Negative (Negative) 06/10/19 23:00 Urine Urobilinogen 0.2 EU/dL (Up TO 0.2) 06/10/19 23:00 Ur Leukocyte Esterase Negative (Negative) 06/10/19 23:00 Urine Glucose Negative mg/dL (Negative) 06/10/19 23:00 Legionella Source Cancelled 06/11/19 05:45 Legionella Reprt Status Cancelled 06/11/19 05:45 Legionella Final Result Cancelled 06/11/19 05:45
[2019-06-11] MEDS: Potassium Chloride 20 MEQ TABCR 40 MEQ PO (19:15)
[2019-06-12] VITALS (57 sets, daily range): BP systolic 110–130; BP diastolic 62–91; PULSE 77–97; RESP 2–29; TEMP 36.5–37.2; O2SAT 91–100
[2019-06-12] MEDS: Albuterol/Ipratropium 3 ML UPD VIAL UPD ×5 (00:05→23:55)
[2019-06-12] MEDS: metroNIDAZOLE 500 MG TAB PO ×4 (00:05→23:55)
[2019-06-12] MEDS: Hydrocortisone SOD SUC. 100 MG VIAL 50 MG IVP ×3 (00:05→18:53)
[2019-06-12] MEDS: Heparin 5,000 UNITS/ML VIAL 5000 UNITS SC ×4 (00:05→23:55)
[2019-06-12] MEDS: LORazepam 2 MG/ML VIAL IVP (01:00)
[2019-06-12] MEDS: CEFEPIME 2 GM in Normal Saline 100 ML IVPB (01:41)
[2019-06-12] MEDS: POTASSIUM CHLORIDE/0.45% NACL 1,000 ML 150 MEQ IV ×3 (02:41→19:53)
[2019-06-12] MEDS: VANCOMYCIN 750 MG in Normal Saline 250 ML 166.7 MG IVPB ×2 (04:33→23:51)
[2019-06-12] MEDS: Gabapentin 300 MG CAP PO ×2 (09:29→19:50)
[2019-06-12] MEDS: Venlafaxine 150 MG CAPCR PO (09:29)
[2019-06-12] MEDS: amLODIPine 10 MG TAB PO (09:30)
[2019-06-12] MEDS: Venlafaxine 37.5 MG CAPCR PO (09:30)
[2019-06-12] MEDS: Folic Acid 1 MG TAB PO (09:30)
[2019-06-12] MEDS: Benzonatate 200 MG CAP PO ×3 (09:30→19:50)
[2019-06-12] MEDS: Thiamine 100 MG TAB PO (09:30)
[2019-06-12] MEDS: Pantoprazole 40 MG TABCR PO (09:30)
[2019-06-12] MEDS: Magnesium Oxide 400 MG TAB PO ×2 (09:30→22:57)
[2019-06-12] MEDS: Metoprolol 50 MG TAB PO ×2 (09:30→19:50)
[2019-06-12] MEDS: guaiFENesin 600 MG TABCR PO ×2 (09:30→19:50)
[2019-06-12] MEDS: Multivitamin TAB 1 TAB PO (09:30)
[2019-06-12] MEDS: Lidocaine 5% Patch 1 PATCH TP (09:31)
[2019-06-12 10:44] LABS: Anion Gap 10.1 mmol/L (3-11); BUN 15 mg/dL (7-18); CO2 26.9 mmol/L (21.0-32.0); CREATININE 1.22 mg/dL (0.55-1.02); Calcium 9.1 mg/dL (8.5-10.1); Chloride 102 mmol/L (98-107); Glucose 175 mg/dL (70-100); Magnesium 1.6 mg/dL (1.8-2.4); Potassium 4.2 mmol/L (3.5-5.1); Sodium 139 mmol/L (136-145)
[2019-06-12 12:39] LABS: Abs Immature Grans 0.07 k/cumm (0.0-0.09); Absolute Basophil Count 0.01 k/cumm (0.0-0.2); Absolute Eosinophil Count 0.01 k/cumm (0.0-0.7); Absolute Lymphocyte Count 0.43 k/cumm (1.2-3.4); Absolute Monocyte Count 0.55 k/cumm (0.11-0.7); Absolute Neutrophil Count 8.89 k/cumm (1.2-6.7); Basophils % 0.1; Eosinophils % 0.1; HCT 30.8 % (36.0-46.0); HGB 9.8 g/dL (12.0-15.5); Immature Grans % 0.7; Lymphocytes % 4.3; Mean Corp. HGB Concentration 31.8 g/dL (32.0-36.0); Mean Corpuscular Hemoglobin 30.7 pg (27.0-33.0); Mean Corpuscular Volume 96.6 fL (80-95); Mean Platelet Volume 9.5 fL (8.0-11.0); Monocytes % 5.5; Neutrophils % 89.3; Platelet Count 206 x1000/uL (130-400); RBC 3.19 m/cumm (4.00-5.20); RBC Distribution Width 16.2 % (11.7-14.6); White Blood Cell Count 9.96 k/cumm (4.4-10.8)
--- NOTE | 2019-06-12 14:56 | CHAPLAIN ---
Leticia was sitting up, she'd finished a late breakfast when I visited. She said she didn't get much sleep last night because the noise at the nurses' station. As she usually does, Leticia talked about her pets. One dog recently. She still has one dog and four cats. Leticia said she is feeling better, like her pneumonia is improving. She didn't mention drinking at all.
--- NOTE | 2019-06-12 15:14 | CMPROGNOTE_ITS ---
- If Service Date Differs Date of service: 06/12/19 Time of Service: 15:15 Care Management Progress Note S/O: Leticia was sitting up in her bed eating lunch when CM met with her. She stated that she feels a bit better today, but she is not ready to go home yet. She reported that she was supposed to have an appointment at [facility] tomorrow. CM contacted [facility] to inform them that Leticia is at [facility] and will not make it to that appointment. CM will continue to follow. A: Leticia is a 74 year old female admitted to [facility] on 06/10/2019 due to Sepsis, Pneumonia, AMBER. P: Anticipate Leticia will return home when medically cleared with a resumption of HH services- PT, OT, VNA. CM to coordinate transportation via [facility] private vehicle. CM will continue to support Leticia with discharge planning.
--- NOTE | 2019-06-12 18:16 | W.PM.PROGNOT ---
Date of Service Date of service: 06/12/19 Time of Service: 18:16 Assessment and Plan Assessment and plan (1) Sepsis: Status: Acute Assessment and plan: Sepsis based on evidence of tachypnea, tachycardia, leukocytosis, with evidence of pneumonia by imaging. Patient also had a significantly elevated lactic acid with initial AMBER that has so far been responsive to IV fluid resuscitation. -Given numerous recent hospitalizations continue broad-spectrum antibiotic coverage with Vanco and cefepime, day #2. There was concern regarding aspiration, and metronidazole was added as well. -Continue to monitor culture data carefully - currently negative. Continue and wean stress dose steroids, IV fluid resuscitation. Supplemental O2 as needed. ?Please note that the patient has a history of prior hemothorax following a fall and rib fracture, as well as notes of a pleural effusion currently surrounding her infection. Very low threshold for surgical consult for a thoracentesis if the patient's symptoms do not improve or fail to respond to current treatment. Qualifiers: Sepsis type: sepsis due to unspecified organism Sepsis acute organ dysfunction status: with acute organ dysfunction Severe sepsis acute organ dysfunction type: acute renal failure Acute renal failure type: unspecified (2) Acute kidney injury (nontraumatic): Status: Acute Assessment and plan: Appears to have initially responded well to IV fluids, but without further decrease in creatinine today. Continue IVFs for now, and monitor renal function carefully. Renally dose medications when appropriate, and avoid nephrotoxins. (3) Renal mass: Status: Suspected Assessment and plan: Will need contrast-enhanced CT or renal protocol MRI for full evaluation once acute illness is better controlled. (4) Alcohol abuse: Status: Chronic Assessment and plan: Currently showing no signs of withdrawl. Of note, patient has not shown any signs of withdrawl during multiple prior hospitalizations, with lone tachycardia and HTN being due to repeated medication noncompliance (BB therapy, antihypertensive regimen), and tremors and headache being a chronic finding. No hallucinations or diaphoresis in the past. Has previously declined offers for multiple different strategies aimed at assisting her at home and as an outpatient. Has also been dropped by Home Health Services due to intoxication during visits, limiting their ability to effectively help. Has in the past expressed some interest in a sobriety swim coach. Discussed importance of abstinence in detail with patient on multiple prior occasions. Will maintain on CIWA protocol and monitor symptoms. (5) Hypertension: Status: Chronic Assessment and plan: Currently being maintained on CCB and BB therapy, with HCTZ on hold. Please note in the past Mrs. Garza has required a number of medications, including ARB and spironolactone, for better control of her blood pressure. Currently on IV fluids for sepsis. Will monitor blood pressure carefully and titrate current medications and initiate new ones as needed. (6) GERD (gastroesophageal reflux disease): Status: Chronic Assessment and plan: Continue PPI therapy. (7) DVT prophylaxis: Status: Acute Assessment and plan: SC heparin given AMBER. Subjective Subjective Interval history since last seen: 73-year-old woman with a history of chronic alcoholism and frequent falls, with a somewhat recent development of a hemothorax requiring hospitalization and chest tube placement, admitted from [facility] Emergency Department 06/10 with apparent sepsis from a suspected pulmonary source. Ms. Garza has a Past Medical History significant for EtOH abuse with frequent falls while intoxicated, HTN, GERD, prior GIB and Gastritis, as well as a history of alcoholic pancreatitis. She has been seen in the ED on multiple occasions after falls, and was hospitalized here with fractures in the past. She was apparently hospitalized at [facility] between 03/11 and 03/21 with rib fractures and hemothorax, requiring placement of a chest tube. The patient presented to the ED with a one-week complaint of cough with production of purulent sputum, along with subjective fever and chills. She had also undergone treatment with oral levofloxacin as an outpatient. Of note, the patient has undergone treatment with oseltamivir on May 19 for diagnosis of influenza. Due to her ongoing nausea and vomiting, Mrs. Garza had also complained of abdominal pain upon presentation to the ED, requiring work-up with a CT scan of her abdomen and pelvis, along with subsequent abdominal ultrasound. A chest x-ray was also obtained. Imaging of the patient's chest was remarkable for multiple left rib fractures with a left-sided pleural effusion on official local radiology read, but virtual radiology had read the same image the night before as with a left lower lobe infiltrate and pleural effusion. Her CT was similarly read as without acute intra-abdominal process, hepatic steatosis, and probable gallbladder sludge, along with a nonobstructing bilateral renal stones. Again noted was a pre-sacral lobulated mass unchanged from prior studies dating back to 2017. However, virtual radiology read of the same film included a left lower lobe infiltrate with left pleural effusions, and a hyperdense renal lesion that warrants further evaluation to rule out renal cell CA. The patient's lab work was remarkable for mild leukocytosis with a left shift but no bandemia, evidence of AMBER with a creatinine rise to 1.8, elevated glucose, and significant lactic acidosis with a lactate of 8.4. Her cardiac biomarkers were and remained negative. Lipase was also checked and low. Urinalysis showed no evidence of infection. The patient was initiated on broad-spectrum antibiotic therapy, and referred for admission for further evaluation and treatment for likely sepsis from a pulmonary source. This morning Mrs. Garza continues to appear improved. However, her renal function remains mildly above her baseline. Renal ultrasound was limited, but showed 2 cystic lesions of the right kidney, with recommendations for additional contrast-enhanced CT or renal protocol MRI for full evaluation of previously noted renal lesions. Her Blood and Urine Cultures remain negative, and her flu was checked and negative as well. No overnight events reported. She remains afebrile. Exam Narrative Exam Narrative: General: Patient appears chronically ill appearing, awake and at baseline mental status, NAD Neck: Supple CV: Regular, tachycardic, S1S2, No rubs, murmurs, or gallops. Pulmonary: Bibasilar crackles without wheezing on limited anterior lateral exam Abdomen: + Bowel Sounds, soft, nontender, nondistended Vascular: No lower extremity edema Objective Objective Clinical Data: Abnormal lab results 06/12/19 06/12/19 Range/Units 10:00 11:40 RBC 3.19 L (4.00-5.20) m/cumm Hgb 9.8 L (12.0-15.5) g/dL Hct 30.8 L (36.0-46.0) % MCV 96.6 H (80-95) fL MCHC 31.8 L (32.0-36.0) g/dL RDW 16.2 H (11.7-14.6) % Absolute Neutrophils 8.89 H (1.2-6.7) k/cumm Absolute Lymphocytes 0.43 L (1.2-3.4) k/cumm Creatinine 1.22 H (0.55-1.02) mg/dL Glucose 175 H (70-100) mg/dL Magnesium 1.6 L (1.8-2.4) mg/dL Vital Signs Temperature 36.5 C 06/12/19 15:30 Temperature Source Tympanic 06/12/19 15:30 Pulse 91 H 06/12/19 16:59 Pulse 92 H 06/12/19 17:00 Respiratory Rate 22 06/12/19 17:00 Respiratory Effort 06/12/19 15:30 Respiratory Depth Normal 06/12/19 15:30 Respiratory Pattern Normal 06/12/19 15:30 Blood Pressure 121/68 06/12/19 16:01 Blood Pressure Mean 80 06/12/19 16:01 Blood Pressure Position Supine 06/12/19 15:30 Pulse Oximetry 97 06/12/19 16:59 Oxygen Delivery Method Nasal Cannula 06/12/19 16:59 Oxygen Flow Rate 1 06/12/19 16:59 Pain Level 0 06/12/19 15:30 Comment 06/11/19 16:00 Intake & Output 06/11/19 06/12/19 06/12/19 23:59 11:59 23:59 Intake Total 3070 / 5610.25 3000 / 3300 300 / 3300 Output Total 1600 / 3200 450 / 725 275 / 725 Balance 1470 / 2410.25 2550 / 2575 25 / 2575 Weight 63.8 kg Intake: IV 2250 / 4550.25 3000 / 3000 Oral 820 / 1060 300 / 300 Output: Urine 1600 / 3200 450 / 725 275 / 725 Other: Urine Color Yellow Yellow Urine Appearance Clear Clear Comment Indwelling Ochoa catheter with pale clear yellow urine in collection bag. Indwelling Ochoa catheter dark yellow urine clear, medium yellow urine in ochoa Laboratory Results WBC 9.96 k/cumm (4.4-10.8) 06/12/19 11:40 RBC 3.19 m/cumm (4.00-5.20) L 06/12/19 11:40 Hgb 9.8 g/dL (12.0-15.5) L 06/12/19 11:40 Hct 30.8 % (36.0-46.0) L 06/12/19 11:40 MCV 96.6 fL (80-95) H 06/12/19 11:40 MCH 30.7 pg (27.0-33.0) 06/12/19 11:40 MCHC 31.8 g/dL (32.0-36.0) L 06/12/19 11:40 RDW 16.2 % (11.7-14.6) H 06/12/19 11:40 Plt Count 206 x1000/uL (130-400) 06/12/19 11:40 MPV 9.5 fL (8.0-11.0) 06/12/19 11:40 Immature Gran % 0.7 06/12/19 11:40 Neutrophils % 89.3 06/12/19 11:40 Lymphocytes % 4.3 06/12/19 11:40 Monocytes % 5.5 06/12/19 11:40 Eosinophils % 0.1 06/12/19 11:40 Basophils % 0.1 06/12/19 11:40 Absolute Neutrophils 8.89 k/cumm (1.2-6.7) H 06/12/19 11:40 Absolute Lymphocytes 0.43 k/cumm (1.2-3.4) L 06/12/19 11:40 Absolute Monocytes 0.55 k/cumm (0.11-0.7) 06/12/19 11:40 Absolute Eosinophils 0.01 k/cumm (0.0-0.7) 06/12/19 11:40 Absolute Basophils 0.01 k/cumm (0.0-0.2) 06/12/19 11:40 PT 9.6 sec (9.3-11.0) 06/10/19 20:10 INR 1.0 (0.9-1.1) 06/10/19 20:10 APTT 22.1 sec (21.0-31.4) 06/10/19 20:10 D-Dimer 1556 ng/mlFEU (<500) H 06/10/19 20:10 Sodium 139 mmol/L (136-145) 06/12/19 10:00 Potassium 4.2 mmol/L (3.5-5.1) D 06/12/19 10:00 Chloride 102 mmol/L (98-107) 06/12/19 10:00 Carbon Dioxide 26.9 mmol/L (21.0-32.0) 06/12/19 10:00 Anion Gap 10.1 mmol/L (3-11) 06/12/19 10:00 BUN 15 mg/dL (7-18) 06/12/19 10:00 Creatinine 1.22 mg/dL (0.55-1.02) H 06/12/19 10:00 Estimated GFR/1.73 m2 43.20 (mL/min/1.73m2) 06/12/19 10:00 Glucose 175 mg/dL (70-100) H 06/12/19 10:00 Lactate 1.1 mmol/L (0.6-1.4) 06/11/19 11:58 Calcium 9.1 mg/dL (8.5-10.1) 06/12/19 10:00 Magnesium 1.6 mg/dL (1.8-2.4) L 06/12/19 10:00 Total Bilirubin 1.1 mg/dL (0.2-1.0) H 06/11/19 06:50 AST 24 U/L (15-37) 06/11/19 06:50 ALT 26 U/L (14-59) 06/11/19 06:50 Alkaline Phosphatase 107 U/L (46-116) 06/11/19 06:50 Troponin I < 0.05 ng/mL (0.00-0.06) 06/11/19 06:50 Total Protein 6.3 g/dL (6.4-8.2) L 06/11/19 06:50 Albumin 3.2 g/dL (3.4-5.0) L 06/11/19 06:50 Lipase 58 U/L (73-393) L 06/10/19 20:10 Procalcitonin 0.5 ng/mL 06/11/19 01:05 Urine Color Yellow (Yellow) 06/10/19 23:00 Urine Clarity Clear (Clear) 06/10/19 23:00 Urine pH 5.5 (5-8) 06/10/19 23:00 Ur Specific [place] 1.025 (1.005-1.025) 06/10/19 23:00 Urine Protein Negative mg/dL (Negative) 06/10/19 23:00 Urine Ketones 80 mg/dL (Negative) H 06/10/19 23:00 Urine Blood Negative (Negative) 06/10/19 23:00 Urine Nitrite Negative (Negative) 06/10/19 23:00 Urine Bilirubin Negative (Negative) 06/10/19 23:00 Urine Urobilinogen 0.2 EU/dL (Up TO 0.2) 06/10/19 23:00 Ur Leukocyte Esterase Negative (Negative) 06/10/19 23:00 Urine Glucose Negative mg/dL (Negative) 06/10/19 23:00 Legionella Source Cancelled 06/11/19 05:45 Legionella Reprt Status Cancelled 06/11/19 05:45 Legionella Final Result Cancelled 06/11/19 05:45
[2019-06-12] MEDS: MAGNESIUM SULFATE 2 GM/50 ML BAG IVPB (18:54)
[2019-06-12] MEDS: LORazepam 1 MG TAB 3 MG PO (20:18)
[2019-06-12 23:27] LABS: Vancomycin, Trough 10.6 ug/mL (10.0-20.0)
[2019-06-13] VITALS (40 sets, daily range): BP systolic 112–145; BP diastolic 64–87; PULSE 75–97; RESP 2–26; TEMP 36.3–37; O2SAT 81–100
[2019-06-13] MEDS: CEFEPIME 2 GM in Normal Saline 100 ML IVPB (03:02)
[2019-06-13] MEDS: Albuterol/Ipratropium 3 ML UPD VIAL UPD ×4 (06:22→23:24)
[2019-06-13] MEDS: Hydrocortisone SOD SUC. 100 MG VIAL 50 MG IVP (06:22)
[2019-06-13] MEDS: POTASSIUM CHLORIDE/0.45% NACL 1,000 ML 150 MEQ IV (06:22)
[2019-06-13 07:10] LABS: Abs Immature Grans 0.03 k/cumm (0.0-0.09); Absolute Basophil Count 0.01 k/cumm (0.0-0.2); Absolute Eosinophil Count 0.01 k/cumm (0.0-0.7); Absolute Lymphocyte Count 0.69 k/cumm (1.2-3.4); Absolute Monocyte Count 0.44 k/cumm (0.11-0.7); Absolute Neutrophil Count 4.16 k/cumm (1.2-6.7); Basophils % 0.2; Eosinophils % 0.2; HCT 29.4 % (36.0-46.0); HGB 9.2 g/dL (12.0-15.5); Immature Grans % 0.6; Lymphocytes % 12.9; Mean Corp. HGB Concentration 31.3 g/dL (32.0-36.0); Mean Corpuscular Hemoglobin 30.4 pg (27.0-33.0); Mean Platelet Volume 9.8 fL (8.0-11.0); Monocytes % 8.2; Neutrophils % 77.9; Platelet Count 182 x1000/uL (130-400); RBC 3.03 m/cumm (4.00-5.20); RBC Distribution Width 15.8 % (11.7-14.6); White Blood Cell Count 5.34 k/cumm (4.4-10.8)
[2019-06-13 07:24] LABS: Anion Gap 8.2 mmol/L (3-11); BUN 13 mg/dL (7-18); CO2 26.8 mmol/L (21.0-32.0); CREATININE 0.96 mg/dL (0.55-1.02); Calcium 8.6 mg/dL (8.5-10.1); Chloride 106 mmol/L (98-107); Estimated GFR 56.97 (mL/min/1.73m2); Glucose 147 mg/dL (70-100); Potassium 4.1 mmol/L (3.5-5.1); Sodium 141 mmol/L (136-145)
--- NOTE | 2019-06-13 08:32 | CMPROGNOTE_ITS ---
- If Service Date Differs Date of service: 06/13/19 Time of Service: 08:32 Care Management Progress Note S/O: Leticia was sitting up in her chair when CM met with her. She reported that she is feeling better, and that she was able to sleep last night, which helped. She also reported that the nurses had her up and walking, which was not comfortable for her. CM discussed the importance of ambulating while in the hospital, which Leticia agreed with. She asked CM if she would have HH services upon discharge, which CM reassured her that it would be coordinated prior to discharge. CM will continue to follow. A: Leticia is a 74 year old female admitted to [facility] on 06/10/2019 due to Sepsis, Pneumonia, AMBER. P: Anticipate Leticia will return home when medically cleared with a resumption of HH services- PT, OT, VNA. CM to coordinate transportation via [facility] private vehicle. CM will continue to support Leticia with discharge planning.
[2019-06-13] MEDS: guaiFENesin 600 MG TABCR PO ×2 (09:35→19:56)
[2019-06-13] MEDS: Multivitamin TAB 1 TAB PO (09:35)
[2019-06-13] MEDS: Gabapentin 300 MG CAP PO ×2 (09:36→19:56)
[2019-06-13] MEDS: metroNIDAZOLE 500 MG TAB PO ×3 (09:36→23:25)
[2019-06-13] MEDS: Venlafaxine 37.5 MG CAPCR PO (09:36)
[2019-06-13] MEDS: Benzonatate 200 MG CAP PO ×3 (09:36→19:56)
[2019-06-13] MEDS: amLODIPine 10 MG TAB PO (09:37)
[2019-06-13] MEDS: Folic Acid 1 MG TAB PO (09:37)
[2019-06-13] MEDS: Magnesium Oxide 400 MG TAB PO ×2 (09:37→21:37)
[2019-06-13] MEDS: Metoprolol 50 MG TAB PO ×2 (09:37→19:56)
[2019-06-13] MEDS: Venlafaxine 150 MG CAPCR PO (09:37)
[2019-06-13] MEDS: Heparin 5,000 UNITS/ML VIAL 5000 UNITS SC ×3 (09:38→23:25)
[2019-06-13] MEDS: Pantoprazole 40 MG TABCR PO (09:38)
[2019-06-13] MEDS: Thiamine 100 MG TAB PO (09:38)
[2019-06-13] MEDS: Lidocaine 5% Patch 1 PATCH TP (10:14)
--- NOTE | 2019-06-13 16:29 | W.PM.PROGNOT ---
Date of Service Date of service: 06/13/19 Time of Service: 16:29 Assessment and Plan Assessment and plan (1) Sepsis: Status: Acute Assessment and plan: Sepsis based on evidence of tachypnea, tachycardia, leukocytos - with likely pulmonary source. Patient also had a significantly elevated lactic acid with initial AMBER that has responded to fluid. -Given numerous recent hospitalizations, on broad-spectrum Abx with Vanco and cefepime, day #3. There was concern regarding aspiration, and metronidazole was added as well. -UCx with NG X48 hours, and Blood Cultures remain negative. Will repeat Procalcitonin - 0.5 at time of admission. Continue and wean stress dose steroids, supplemental O2 as needed. Now off IVFs. ?Please note that the patient has a history of prior hemothorax following a fall and rib fracture, as well as notes of a pleural effusion currently surrounding her infection. Very low threshold for surgical consult for a thoracentesis if the patient's symptoms acutely worsen. Qualifiers: Sepsis type: sepsis due to unspecified organism Sepsis acute organ dysfunction status: with acute organ dysfunction Severe sepsis acute organ dysfunction type: acute renal failure Acute renal failure type: unspecified (2) Acute kidney injury (nontraumatic): Status: Acute Assessment and plan: Resolved. Appears to have responded well to IV fluids (3) Renal mass: Status: Suspected Assessment and plan: Will need contrast-enhanced CT or renal protocol MRI for full evaluation once acute illness is better controlled. (4) Alcohol abuse: Status: Chronic Assessment and plan: Currently showing no signs of withdrawl. Of note, patient has not shown any signs of withdrawl during multiple prior hospitalizations, with lone tachycardia and HTN being due to repeated medication noncompliance (BB therapy, antihypertensive regimen), and tremors and headache being a chronic finding. No hallucinations or diaphoresis in the past. Has previously declined offers for multiple different strategies aimed at assisting her at home and as an outpatient. Has also been dropped by Home Health Services due to intoxication during visits, limiting their ability to effectively help. Has in the past expressed some interest in a sobriety health coach. Discussed importance of abstinence in detail with patient on multiple prior occasions. Will maintain on CIWA protocol and monitor symptoms. CIWA score 1 last night. (5) Hypertension: Status: Chronic Assessment and plan: Currently being maintained on CCB and BB therapy, with HCTZ on hold. Please note in the past Mrs. Garza has required a number of medications, including ARB and spironolactone, for better control of her blood pressure. Will monitor blood pressure carefully and titrate current medications and initiate new ones as needed. (6) GERD (gastroesophageal reflux disease): Status: Chronic Assessment and plan: Continue PPI therapy. (7) DVT prophylaxis: Status: Acute Assessment and plan: SC heparin given AMBER. Subjective Subjective Interval history since last seen: 73-year-old woman with a history of chronic alcoholism and frequent falls, with a somewhat recent development of a hemothorax requiring hospitalization and chest tube placement, admitted from [facility] Emergency Department 06/10 with apparent sepsis from a suspected pulmonary source. Ms. Garza has a Past Medical History significant for EtOH abuse with frequent falls while intoxicated, HTN, GERD, prior GIB and Gastritis, as well as a history of alcoholic pancreatitis. She has been seen in the ED on multiple occasions after falls, and was hospitalized here with fractures in the past. She was apparently hospitalized at [facility] between 03/11 and 03/21 with rib fractures and hemothorax, requiring placement of a chest tube. The patient presented to the ED with a one-week complaint of cough with production of purulent sputum, along with subjective fever and chills. She had also undergone treatment with oral levofloxacin as an outpatient. Of note, the patient has undergone treatment with oseltamivir on May 19 for diagnosis of influenza. Due to her ongoing nausea and vomiting, Mrs. Garza had also complained of abdominal pain upon presentation to the ED, requiring work-up with a CT scan of her abdomen and pelvis, along with subsequent abdominal ultrasound. A chest x-ray was also obtained. Imaging of the patient's chest was remarkable for multiple left rib fractures with a left-sided pleural effusion on official local radiology read, but virtual radiology had read the same image the night before as with a left lower lobe infiltrate and pleural effusion. Her CT was similarly read as without acute intra-abdominal process, hepatic steatosis, and probable gallbladder sludge, along with a nonobstructing bilateral renal stones. Again noted was a pre-sacral lobulated mass unchanged from prior studies dating back to 2017. However, virtual radiology read of the same film included a left lower lobe infiltrate with left pleural effusions, and a hyperdense renal lesion that warrants further evaluation to rule out renal cell CA. The patient's lab work was remarkable for mild leukocytosis with a left shift but no bandemia, evidence of AMBER with a creatinine rise to 1.8, elevated glucose, and significant lactic acidosis with a lactate of 8.4. Her cardiac biomarkers were and remained negative. Lipase was also checked and low. Urinalysis showed no evidence of infection. The patient was initiated on broad-spectrum antibiotic therapy, and referred for admission for further evaluation and treatment for likely sepsis from a pulmonary source. This morning Mrs. Garza continues to appear improved. Her renal function has improved and is at or near her baseline. Renal ultrasound was limited, but showed 2 cystic lesions of the right kidney, with recommendations for additional contrast-enhanced CT or renal protocol MRI for full evaluation of previously noted renal lesions. Her Blood and Urine Cultures remain negative, and her flu was checked and negative as well. No overnight events reported. She remains afebrile. Exam Narrative Exam Narrative: General: Patient appears chronically ill appearing, awake and at baseline mental status, NAD Neck: Supple CV: Regular, tachycardic, S1S2, No rubs, murmurs, or gallops. Pulmonary: Bibasilar crackles without wheezing or rhonchi Abdomen: + Bowel Sounds, soft, nontender, nondistended Vascular: No lower extremity edema Objective Objective Clinical Data: Abnormal lab results 06/13/19 06/13/19 Range/Units 06:30 06:30 RBC 3.03 L (4.00-5.20) m/cumm Hgb 9.2 L (12.0-15.5) g/dL Hct 29.4 L (36.0-46.0) % MCV 97.0 H (80-95) fL MCHC 31.3 L (32.0-36.0) g/dL RDW 15.8 H (11.7-14.6) % Absolute Lymphocytes 0.69 L (1.2-3.4) k/cumm Glucose 147 H (70-100) mg/dL Vital Signs Temperature 36.3 C L 06/13/19 12:05 Temperature Source Temporal Artery Scan 06/13/19 12:05 Pulse 85 06/13/19 13:06 Pulse 81 06/13/19 15:30 Respiratory Rate 19 06/13/19 15:30 Respiratory Effort 06/13/19 12:05 Respiratory Depth Normal 06/13/19 12:05 Respiratory Pattern Normal 06/13/19 12:05 Blood Pressure 142/83 H 06/13/19 12:05 Blood Pressure Mean 102 06/13/19 12:05 Blood Pressure Position Sitting 06/13/19 12:05 Pulse Oximetry 98 06/13/19 13:09 Oxygen Delivery Method Nasal Cannula 06/13/19 13:09 Oxygen Flow Rate 1 06/13/19 13:09 Pain Level 6 06/13/19 09:00 Comment 06/11/19 16:00 Intake & Output 06/12/19 06/13/19 06/13/19 23:59 11:59 23:59 Intake Total 1880 / 5230 2070 / 2550 480 / 2550 Output Total 1225 / 1675 1450 / 2200 750 / 2200 Balance 655 / 3555 620 / 350 -270 / 350 Weight 71.2 kg Intake: IV 1000 / 4350 1710 / 1710 Oral 880 / 880 360 / 840 480 / 840 Output: Urine 1225 / 1675 1450 / 2200 750 / 2200 Other: Urine Color Yellow Yellow Pale Yellow Urine Appearance Clear Clear Clear Comment ochoa in place. Ochoa catheter in place draining clear, pale urine. ph of 5, large amt of blood and SG of 1.[address] draining clear urine. Stool Occult Blood Negative Stool Size Small Stool Characteristics Soft Formed Laboratory Results WBC 5.34 k/cumm (4.4-10.8) D 06/13/19 06:30 RBC 3.03 m/cumm (4.00-5.20) L 06/13/19 06:30 Hgb 9.2 g/dL (12.0-15.5) L 06/13/19 06:30 Hct 29.4 % (36.0-46.0) L 06/13/19 06:30 MCV 97.0 fL (80-95) H 06/13/19 06:30 MCH 30.4 pg (27.0-33.0) 06/13/19 06:30 MCHC 31.3 g/dL (32.0-36.0) L 06/13/19 06:30 RDW 15.8 % (11.7-14.6) H 06/13/19 06:30 Plt Count 182 x1000/uL (130-400) 06/13/19 06:30 MPV 9.8 fL (8.0-11.0) 06/13/19 06:30 Immature Gran % 0.6 06/13/19 06:30 Neutrophils % 77.9 06/13/19 06:30 Lymphocytes % 12.9 06/13/19 06:30 Monocytes % 8.2 06/13/19 06:30 Eosinophils % 0.2 06/13/19 06:30 Basophils % 0.2 06/13/19 06:30 Absolute Neutrophils 4.16 k/cumm (1.2-6.7) 06/13/19 06:30 Absolute Lymphocytes 0.69 k/cumm (1.2-3.4) L 06/13/19 06:30 Absolute Monocytes 0.44 k/cumm (0.11-0.7) 06/13/19 06:30 Absolute Eosinophils 0.01 k/cumm (0.0-0.7) 06/13/19 06:30 Absolute Basophils 0.01 k/cumm (0.0-0.2) 06/13/19 06:30 PT 9.6 sec (9.3-11.0) 06/10/19 20:10 INR 1.0 (0.9-1.1) 06/10/19 20:10 APTT 22.1 sec (21.0-31.4) 06/10/19 20:10 D-Dimer 1556 ng/mlFEU (<500) H 06/10/19 20:10 Sodium 141 mmol/L (136-145) 06/13/19 06:30 Potassium 4.1 mmol/L (3.5-5.1) 06/13/19 06:30 Chloride 106 mmol/L (98-107) 06/13/19 06:30 Carbon Dioxide 26.8 mmol/L (21.0-32.0) 06/13/19 06:30 Anion Gap 8.2 mmol/L (3-11) 06/13/19 06:30 BUN 13 mg/dL (7-18) 06/13/19 06:30 Creatinine 0.96 mg/dL (0.55-1.02) 06/13/19 06:30 Estimated GFR/1.73 m2 56.97 (mL/min/1.73m2) 06/13/19 06:30 Glucose 147 mg/dL (70-100) H 06/13/19 06:30 Lactate 1.1 mmol/L (0.6-1.4) 06/11/19 11:58 Calcium 8.6 mg/dL (8.5-10.1) 06/13/19 06:30 Magnesium 2.0 mg/dL (1.8-2.4) 06/13/19 06:30 Total Bilirubin 1.1 mg/dL (0.2-1.0) H 06/11/19 06:50 AST 24 U/L (15-37) 06/11/19 06:50 ALT 26 U/L (14-59) 06/11/19 06:50 Alkaline Phosphatase 107 U/L (46-116) 06/11/19 06:50 Troponin I < 0.05 ng/mL (0.00-0.06) 06/11/19 06:50 Total Protein 6.3 g/dL (6.4-8.2) L 06/11/19 06:50 Albumin 3.2 g/dL (3.4-5.0) L 06/11/19 06:50 Lipase 58 U/L (73-393) L 06/10/19 20:10 Procalcitonin 0.5 ng/mL 06/11/19 01:05 Urine Color Yellow (Yellow) 06/10/19 23:00 Urine Clarity Clear (Clear) 06/10/19 23:00 Urine pH 5.5 (5-8) 06/10/19 23:00 Ur Specific [place] 1.025 (1.005-1.025) 06/10/19 23:00 Urine Protein Negative mg/dL (Negative) 06/10/19 23:00 Urine Ketones 80 mg/dL (Negative) H 06/10/19 23:00 Urine Blood Negative (Negative) 06/10/19 23:00 Urine Nitrite Negative (Negative) 06/10/19 23:00 Urine Bilirubin Negative (Negative) 06/10/19 23:00 Urine Urobilinogen 0.2 EU/dL (Up TO 0.2) 06/10/19 23:00 Ur Leukocyte Esterase Negative (Negative) 06/10/19 23:00 Urine Glucose Negative mg/dL (Negative) 06/10/19 23:00 Vancomycin Trough 10.6 ug/mL (10.0-20.0) 06/12/19 22:55 Legionella Source Cancelled 06/11/19 05:45 Legionella Reprt Status Cancelled 06/11/19 05:45 Legionella Final Result Cancelled 06/11/19 05:45
--- NOTE | 2019-06-13 18:14 | NUR.NOTE ---
Addendum entered and electronically signed by Bianka Rodriges 06/13/19 18:15: Report received from Tessie RN at 1645. All questions answered. Original Note: Nursing Note: Pt to MS floor from ICU at 1700. A&Ox3. VSS. Pt oriented to MS floor, call bailey, TV, etc. Call bailey within reach. RN will continue to monitor.
[2019-06-13] MEDS: Acetaminophen 325 MG TAB PO (19:56)
[2019-06-13] MEDS: LORazepam 1 MG TAB 3 MG PO (21:37)
[2019-06-14] VITALS (15 sets, daily range): BP systolic 124–146; BP diastolic 75–85; PULSE 78–110; RESP 1–18; TEMP 36.3–37.4; O2SAT 92–96
[2019-06-14] MEDS: CEFEPIME 2 GM in Normal Saline 100 ML IVPB (02:58)
[2019-06-14] MEDS: Normal Saline Flush 10 ML SYR IVP ×2 (03:08→19:35)
[2019-06-14] MEDS: Albuterol/Ipratropium 3 ML UPD VIAL UPD ×4 (06:21→22:59)
[2019-06-14 06:57] LABS: Abs Immature Grans 0.05 k/cumm (0.0-0.09); Absolute Basophil Count 0.01 k/cumm (0.0-0.2); Absolute Eosinophil Count 0.11 k/cumm (0.0-0.7); Absolute Monocyte Count 0.41 k/cumm (0.11-0.7); Basophils % 0.2; Eosinophils % 2.4; HGB 10.1 g/dL (12.0-15.5); Immature Grans % 1.1; Lymphocytes % 25.6; Mean Corp. HGB Concentration 31.6 g/dL (32.0-36.0); Mean Corpuscular Hemoglobin 30.5 pg (27.0-33.0); Mean Corpuscular Volume 96.7 fL (80-95); Mean Platelet Volume 9.5 fL (8.0-11.0); Monocytes % 8.8; Neutrophils % 61.9; Platelet Count 170 x1000/uL (130-400); RBC 3.31 m/cumm (4.00-5.20); RBC Distribution Width 15.4 % (11.7-14.6); White Blood Cell Count 4.68 k/cumm (4.4-10.8)
[2019-06-14 07:16] LABS: Anion Gap 6.9 mmol/L (3-11); BUN 14 mg/dL (7-18); CO2 27.1 mmol/L (21.0-32.0); CREATININE 0.87 mg/dL (0.55-1.02); Calcium 8.9 mg/dL (8.5-10.1); Chloride 107 mmol/L (98-107); Glucose 129 mg/dL (70-100); Magnesium 1.8 mg/dL (1.8-2.4); Sodium 141 mmol/L (136-145)
[2019-06-14] MEDS: Hydrocortisone SOD SUC. 100 MG VIAL 50 MG IVP (08:10)
[2019-06-14] MEDS: Lidocaine 5% Patch 1 PATCH TP (08:11)
[2019-06-14] MEDS: Benzonatate 200 MG CAP PO ×3 (08:11→19:26)
[2019-06-14] MEDS: metroNIDAZOLE 500 MG TAB PO ×3 (08:11→22:59)
[2019-06-14] MEDS: amLODIPine 10 MG TAB PO (08:11)
[2019-06-14] MEDS: Venlafaxine 150 MG CAPCR PO (08:11)
[2019-06-14] MEDS: Venlafaxine 37.5 MG CAPCR PO (08:11)
[2019-06-14] MEDS: Multivitamin TAB 1 TAB PO (08:11)
[2019-06-14] MEDS: Thiamine 100 MG TAB PO (08:11)
[2019-06-14] MEDS: Metoprolol 50 MG TAB PO ×2 (08:11→19:26)
[2019-06-14] MEDS: Folic Acid 1 MG TAB PO (08:11)
[2019-06-14] MEDS: Pantoprazole 40 MG TABCR PO (08:11)
[2019-06-14] MEDS: Gabapentin 300 MG CAP PO ×2 (08:11→19:26)
[2019-06-14] MEDS: guaiFENesin 600 MG TABCR PO ×2 (08:11→19:26)
[2019-06-14] MEDS: Heparin 5,000 UNITS/ML VIAL 5000 UNITS SC ×3 (08:17→22:59)
[2019-06-14] MEDS: Acetaminophen 325 MG TAB PO ×2 (09:47→22:59)
[2019-06-14] MEDS: Magnesium Oxide 400 MG TAB PO ×3 (09:47→21:39)
[2019-06-14] MEDS: Polyethylene Glycol 3350 17 GM PACKET PO (09:54)
[2019-06-14 10:39] LABS: Procalcitonin 0.2 ng/mL
--- NOTE | 2019-06-14 14:30 | PDOC.CMPRO ---
- If Service Date Differs Date of service: 06/14/19 Time of Service: 14:30 Care Management Progress Note S/O: Leticia was sitting up in her bed eating lunch when CM met with her. She commented on her new room, as she was transferred from the ICU to NC floor. She stated that she prefers the room she is in now, as it is bigger and more private. She reported that she is feeling better today. CM and Leticia discussed her discharge plan, which is to return home when medically cleared and resume current HH services, which Leticia is agreeable to. CM will continue to follow. A: Leticia is a 74 year old female admitted to [facility] on 06/10/2019 due to Sepsis, Pneumonia, AMBER. P: Anticipate Leticia will return home when medically cleared with a resumption of HH services- PT, OT, VNA. CM to coordinate transportation via [facility] private vehicle. CM will continue to support Leticia with discharge planning.
--- NOTE | 2019-06-14 14:59 | CHAPLAIN ---
Leticia was in bed when I visited. We had brief visit before her nurse arrived to administer meds. Julia said is feeling better, but is tired from waking up every two hours. I will continue to visit her.
--- NOTE | 2019-06-14 15:32 | W.PM.PROGNOT ---
Date of Service Date of service: 06/14/19 Time of Service: 15:32 Assessment and Plan Assessment and plan (1) Sepsis: Status: Acute Assessment and plan: Sepsis based on evidence of tachypnea, tachycardia, and leukocytosis - with likely pulmonary source. Patient also had a significantly elevated lactic acid with initial AMBER that has responded to fluid. -Given numerous recent hospitalizations, on broad-spectrum Abx with Vanco and cefepime, day #4. There was concern regarding aspiration, and metronidazole was added as well. -UCx with NG X48 hours, and Blood Cultures remain negative. Procalcitonin - 0.5 --> 0.2. Will repeat in am to determine timing of antibiotic discontinuation. Stress dosed steroids discontinued. ?Please note that the patient has a history of prior hemothorax following a fall and rib fracture, as well as notes of a pleural effusion currently surrounding her infection. Very low threshold for surgical consult for a thoracentesis if the patient's symptoms acutely worsen. Qualifiers: Sepsis type: sepsis due to unspecified organism Sepsis acute organ dysfunction status: with acute organ dysfunction Severe sepsis acute organ dysfunction type: acute renal failure Acute renal failure type: unspecified (2) Acute kidney injury (nontraumatic): Status: Acute Assessment and plan: Resolved. Appears to have responded well to IV fluids (3) Renal mass: Status: Suspected Assessment and plan: Will need contrast-enhanced CT or renal protocol MRI for full evaluation - currently planning for outpatient. (4) Alcohol abuse: Status: Chronic Assessment and plan: Currently showing no signs of withdrawl. Of note, patient has not shown any signs of withdrawl during multiple prior hospitalizations, with lone tachycardia and HTN being due to repeated medication noncompliance (BB therapy, antihypertensive regimen), and tremors and headache being a chronic finding. No hallucinations or diaphoresis in the past. Has previously declined offers for multiple different strategies aimed at assisting her at home and as an outpatient. Has also been dropped by Home Health Services due to intoxication during visits, limiting their ability to effectively help. Has in the past expressed some interest in a sobriety continuous improvement coach. Discussed importance of abstinence in detail with patient on multiple prior occasions. Will maintain on CIWA protocol and monitor symptoms. (5) Hypertension: Status: Chronic Assessment and plan: Currently being maintained on CCB and BB therapy, with HCTZ on hold. Please note in the past Mrs. Garza has required a number of medications, including ARB and spironolactone, for better control of her blood pressure. Will monitor blood pressure carefully and titrate current medications and initiate new ones as needed. Current readings reasonable. (6) GERD (gastroesophageal reflux disease): Status: Chronic Assessment and plan: Continue PPI therapy. (7) DVT prophylaxis: Status: Acute Assessment and plan: SC heparin given AMBER. Subjective Subjective Interval history since last seen: 73-year-old woman with a history of chronic alcoholism and frequent falls, with a somewhat recent development of a hemothorax requiring hospitalization and chest tube placement, admitted from [facility] Emergency Department 06/10 with apparent sepsis from a suspected pulmonary source. Ms. Garza has a Past Medical History significant for EtOH abuse with frequent falls while intoxicated, HTN, GERD, prior GIB and Gastritis, as well as a history of alcoholic pancreatitis. She has been seen in the ED on multiple occasions after falls, and was hospitalized here with fractures in the past. She was apparently hospitalized at [facility] between 03/11 and 03/21 with rib fractures and hemothorax, requiring placement of a chest tube. The patient presented to the ED with a one-week complaint of cough with production of purulent sputum, along with subjective fever and chills. She had also undergone treatment with oral levofloxacin as an outpatient. Of note, the patient has undergone treatment with oseltamivir on May 19 for diagnosis of influenza. Due to her ongoing nausea and vomiting, Mrs. Garza had also complained of abdominal pain upon presentation to the ED, requiring work-up with a CT scan of her abdomen and pelvis, along with subsequent abdominal ultrasound. A chest x-ray was also obtained. Imaging of the patient's chest was remarkable for multiple left rib fractures with a left-sided pleural effusion on official local radiology read, but virtual radiology had read the same image the night before as with a left lower lobe infiltrate and pleural effusion. Her CT was similarly read as without acute intra-abdominal process, hepatic steatosis, and probable gallbladder sludge, along with a nonobstructing bilateral renal stones. Again noted was a pre-sacral lobulated mass unchanged from prior studies dating back to 2017. However, virtual radiology read of the same film included a left lower lobe infiltrate with left pleural effusions, and a hyperdense renal lesion that warrants further evaluation to rule out renal cell CA. The patient's lab work was remarkable for mild leukocytosis with a left shift but no bandemia, evidence of AMBER with a creatinine rise to 1.8, elevated glucose, and significant lactic acidosis with a lactate of 8.4. Her cardiac biomarkers were and remained negative. Lipase was also checked and low. Urinalysis showed no evidence of infection. The patient was initiated on broad-spectrum antibiotic therapy, and referred for admission for further evaluation and treatment for likely sepsis from a pulmonary source. This morning Mrs. Garza continues to appear improved from original presentation. Her renal function has improved and is at or near her baseline. Renal ultrasound was limited, but showed 2 cystic lesions of the right kidney, with recommendations for additional contrast-enhanced CT or renal protocol MRI for full evaluation of previously noted renal lesions. Her Blood and Urine Cultures remain negative, and her flu was checked and negative as well. No overnight events reported. She remains afebrile. Exam Narrative Exam Narrative: General: Patient appears chronically ill appearing, awake and at baseline mental status, NAD Neck: Supple CV: Regular, nontachycardic, S1S2, No rubs, murmurs, or gallops. Pulmonary: Bibasilar crackles without wheezing or rhonchi - all appear improved Abdomen: + Bowel Sounds, soft, nontender, nondistended Vascular: No lower extremity edema Objective Objective Clinical Data: Abnormal lab results 06/14/19 06/14/19 Range/Units 06:12 06:12 RBC 3.31 L (4.00-5.20) m/cumm Hgb 10.1 L (12.0-15.5) g/dL Hct 32.0 L (36.0-46.0) % MCV 96.7 H (80-95) fL MCHC 31.6 L (32.0-36.0) g/dL RDW 15.4 H (11.7-14.6) % Glucose 129 H (70-100) mg/dL Vital Signs Temperature 36.3 C L 06/14/19 11:20 Temperature Source Tympanic 06/14/19 11:20 Pulse 82 06/14/19 13:31 Pulse Rhythm Regular 06/14/19 13:34 Pulse 82 06/13/19 16:04 Respiratory Rate 18 06/14/19 13:31 Respiratory Effort 06/14/19 13:34 Respiratory Depth Normal 06/14/19 13:34 Respiratory Pattern Normal 06/14/19 13:34 Blood Pressure 124/78 06/14/19 11:20 Blood Pressure Mean 82 06/13/19 16:04 Blood Pressure Position Sitting 06/13/19 12:05 Pulse Oximetry 92 L 06/14/19 14:06 Oxygen Delivery Method Room Air 06/14/19 14:06 Oxygen Flow Rate 0 06/14/19 14:06 Pain Level 5 06/14/19 11:20 Comment 06/11/19 16:00 Intake & Output 06/13/19 06/14/19 06/14/19 23:59 11:59 23:59 Intake Total 1120 / 3440 820 / 1300 480 / 1300 Output Total 2000 / 3450 2975 / 2975 Balance -880 / -10 -2155 / -1675 480 / -1675 Weight 69.2 kg Intake: IV 400 / 2360 340 / 340 Oral 720 / 1080 480 / 960 480 / 960 Output: Urine 2000 / 3450 2975 / 2975 Other: Urine Color Pale Yellow Urine Appearance Clear Clear Clear Comment Lopez catheter in place draining clear urine. Stool Occult Blood Negative Stool Size Small Large Stool Characteristics Soft Formed Formed Brown Laboratory Results WBC 4.68 k/cumm (4.4-10.8) 06/14/19 06:12 RBC 3.31 m/cumm (4.00-5.20) L 06/14/19 06:12 Hgb 10.1 g/dL (12.0-15.5) L 06/14/19 06:12 Hct 32.0 % (36.0-46.0) L 06/14/19 06:12 MCV 96.7 fL (80-95) H 06/14/19 06:12 MCH 30.5 pg (27.0-33.0) 06/14/19 06:12 MCHC 31.6 g/dL (32.0-36.0) L 06/14/19 06:12 RDW 15.4 % (11.7-14.6) H 06/14/19 06:12 Plt Count 170 x1000/uL (130-400) 06/14/19 06:12 MPV 9.5 fL (8.0-11.0) 06/14/19 06:12 Immature Gran % 1.1 06/14/19 06:12 Neutrophils % 61.9 06/14/19 06:12 Lymphocytes % 25.6 06/14/19 06:12 Monocytes % 8.8 06/14/19 06:12 Eosinophils % 2.4 06/14/19 06:12 Basophils % 0.2 06/14/19 06:12 Absolute Neutrophils 2.90 k/cumm (1.2-6.7) 06/14/19 06:12 Absolute Lymphocytes 1.20 k/cumm (1.2-3.4) 06/14/19 06:12 Absolute Monocytes 0.41 k/cumm (0.11-0.7) 06/14/19 06:12 Absolute Eosinophils 0.11 k/cumm (0.0-0.7) 06/14/19 06:12 Absolute Basophils 0.01 k/cumm (0.0-0.2) 06/14/19 06:12 PT 9.6 sec (9.3-11.0) 06/10/19 20:10 INR 1.0 (0.9-1.1) 06/10/19 20:10 APTT 22.1 sec (21.0-31.4) 06/10/19 20:10 D-Dimer 1556 ng/mlFEU (<500) H 06/10/19 20:10 Sodium 141 mmol/L (136-145) 06/14/19 06:12 Potassium 4.0 mmol/L (3.5-5.1) 06/14/19 06:12 Chloride 107 mmol/L (98-107) 06/14/19 06:12 Carbon Dioxide 27.1 mmol/L (21.0-32.0) 06/14/19 06:12 Anion Gap 6.9 mmol/L (3-11) 06/14/19 06:12 BUN 14 mg/dL (7-18) 06/14/19 06:12 Creatinine 0.87 mg/dL (0.55-1.02) 06/14/19 06:12 Estimated GFR/1.73 m2 >= 60.00 (mL/min/1.73m2) 06/14/19 06:12 Glucose 129 mg/dL (70-100) H 06/14/19 06:12 Lactate 1.1 mmol/L (0.6-1.4) 06/11/19 11:58 Calcium 8.9 mg/dL (8.5-10.1) 06/14/19 06:12 Magnesium 1.8 mg/dL (1.8-2.4) 06/14/19 06:12 Total Bilirubin 1.1 mg/dL (0.2-1.0) H 06/11/19 06:50 AST 24 U/L (15-37) 06/11/19 06:50 ALT 26 U/L (14-59) 06/11/19 06:50 Alkaline Phosphatase 107 U/L (46-116) 06/11/19 06:50 Troponin I < 0.05 ng/mL (0.00-0.06) 06/11/19 06:50 Total Protein 6.3 g/dL (6.4-8.2) L 06/11/19 06:50 Albumin 3.2 g/dL (3.4-5.0) L 06/11/19 06:50 Lipase 58 U/L (73-393) L 06/10/19 20:10 Procalcitonin 0.2 ng/mL 06/14/19 06:12 Urine Color Yellow (Yellow) 06/10/19 23:00 Urine Clarity Clear (Clear) 06/10/19 23:00 Urine pH 5.5 (5-8) 06/10/19 23:00 Ur Specific [place] 1.025 (1.005-1.025) 06/10/19 23:00 Urine Protein Negative mg/dL (Negative) 06/10/19 23:00 Urine Ketones 80 mg/dL (Negative) H 06/10/19 23:00 Urine Blood Negative (Negative) 06/10/19 23:00 Urine Nitrite Negative (Negative) 06/10/19 23:00 Urine Bilirubin Negative (Negative) 06/10/19 23:00 Urine Urobilinogen 0.2 EU/dL (Up TO 0.2) 06/10/19 23:00 Ur Leukocyte Esterase Negative (Negative) 06/10/19 23:00 Urine Glucose Negative mg/dL (Negative) 06/10/19 23:00 Vancomycin Trough 10.6 ug/mL (10.0-20.0) 06/12/19 22:55 Legionella Source Cancelled 06/11/19 05:45 Legionella Reprt Status Cancelled 06/11/19 05:45 Legionella Final Result Cancelled 06/11/19 05:45
[2019-06-14] MEDS: LORazepam 1 MG TAB 3 MG PO (23:03)
[2019-06-15] VITALS (14 sets, daily range): BP systolic 128–151; BP diastolic 81–90; PULSE 77–102; RESP 1–20; TEMP 36.4–37.2; O2SAT 95–98
[2019-06-15] MEDS: CEFEPIME 2 GM in Normal Saline 100 ML IVPB (01:34)
[2019-06-15] MEDS: Normal Saline Flush 10 ML SYR IVP ×3 (01:35→08:54)
[2019-06-15] MEDS: Pantoprazole 40 MG TABCR PO (06:20)
[2019-06-15] MEDS: Albuterol/Ipratropium 3 ML UPD VIAL UPD ×3 (06:20→18:14)
[2019-06-15 07:25] LABS: Abs Immature Grans 0.11 k/cumm (0.0-0.09); Absolute Basophil Count 0.01 k/cumm (0.0-0.2); Absolute Eosinophil Count 0.23 k/cumm (0.0-0.7); Absolute Lymphocyte Count 1.39 k/cumm (1.2-3.4); Absolute Monocyte Count 0.53 k/cumm (0.11-0.7); Basophils % 0.2; Eosinophils % 5.1; HCT 33.8 % (36.0-46.0); HGB 10.6 g/dL (12.0-15.5); Immature Grans % 2.5; Lymphocytes % 31.1; Mean Corp. HGB Concentration 31.4 g/dL (32.0-36.0); Mean Corpuscular Hemoglobin 30.2 pg (27.0-33.0); Mean Corpuscular Volume 96.3 fL (80-95); Monocytes % 11.9; Neutrophils % 49.2; Platelet Count 188 x1000/uL (130-400); RBC 3.51 m/cumm (4.00-5.20); RBC Distribution Width 16.1 % (11.7-14.6); White Blood Cell Count 4.47 k/cumm (4.4-10.8)
[2019-06-15 07:52] LABS: Anion Gap 6.4 mmol/L (3-11); BUN 15 mg/dL (7-18); CO2 28.6 mmol/L (21.0-32.0); CREATININE 0.94 mg/dL (0.55-1.02); Calcium 8.8 mg/dL (8.5-10.1); Chloride 105 mmol/L (98-107); Estimated GFR 58.37 (mL/min/1.73m2); Glucose 124 mg/dL (70-100); Magnesium 1.6 mg/dL (1.8-2.4); Sodium 140 mmol/L (136-145)
[2019-06-15 08:25] LABS: Procalcitonin 0.2 ng/mL
[2019-06-15] MEDS: Lidocaine 5% Patch 1 PATCH TP (08:25)
[2019-06-15] MEDS: Benzonatate 200 MG CAP PO ×3 (08:30→20:29)
[2019-06-15] MEDS: metroNIDAZOLE 500 MG TAB PO ×2 (08:30→17:02)
[2019-06-15] MEDS: Multivitamin TAB 1 TAB PO (08:30)
[2019-06-15] MEDS: guaiFENesin 600 MG TABCR PO ×2 (08:30→20:29)
[2019-06-15] MEDS: Gabapentin 300 MG CAP PO ×2 (08:30→20:29)
[2019-06-15] MEDS: Venlafaxine 150 MG CAPCR PO (08:31)
[2019-06-15] MEDS: Folic Acid 1 MG TAB PO (08:31)
[2019-06-15] MEDS: amLODIPine 10 MG TAB PO (08:31)
[2019-06-15] MEDS: Venlafaxine 37.5 MG CAPCR PO (08:31)
[2019-06-15] MEDS: Metoprolol 50 MG TAB PO ×2 (08:32→20:29)
[2019-06-15] MEDS: Thiamine 100 MG TAB PO (08:32)
[2019-06-15] MEDS: Heparin 5,000 UNITS/ML VIAL 5000 UNITS SC (08:33)
[2019-06-15] MEDS: Acetaminophen 325 MG TAB PO ×2 (08:53→18:49)
[2019-06-15] MEDS: MAGNESIUM SULFATE 2 GM/50 ML BAG IVPB (08:55)
[2019-06-15] MEDS: Normal Saline 500 ML IV (08:55)
[2019-06-15] MEDS: Magnesium Oxide 400 MG TAB PO ×2 (10:11→21:00)
[2019-06-15] MEDS: Normal Saline 1,000 ML 125 ML IV ×2 (10:23→18:33)
--- NOTE | 2019-06-15 10:27 | CMPROGNOTE_ITS ---
- If Service Date Differs Date of service: 06/15/19 Time of Service: 10:27 Care Management Progress Note S/O: Leticia was sitting up in her chair when CM met with her. She was pleasant and engaged in conversation. She reported that she is feeling better today. CM discussed the plan to return home when she is ready, which she is agreeable to. She asked if CM would notify and Armida, her caregiver. CM reassured her that it would be taken care of prior to discharge. CM will continue to follow. A: Leticia is a 74 year old female admitted to [facility] on 06/10/2019 due to Sepsis, Pneumonia, AMBER. P: Anticipate Leticia will return home when medically cleared with a resumption of services- PT, OT, VNA. CM to coordinate transportation via [facility] private vehicle. CM will also contact Leticia Huffman's caregiver (c:[phone]) day of discharge to inform her that she will be returning home. CM will continue to support Leticia with discharge planning.
--- NOTE | 2019-06-15 12:01 | PGE_ITS ---
Date of Service Date of service: 06/15/19 Time of Service: 12:01 Assessment and Plan Assessment and plan (1) Sepsis: Status: Acute Assessment and plan: Sepsis based on evidence of tachypnea, tachycardia, and leukocytosis - with likely pulmonary source. Patient also had a significantly elevated lactic acid with initial AMBER that has responded to fluid. -Given numerous recent hospitalizations, on broad-spectrum Abx with Vanco and cefepime, day #5. There was concern regarding aspiration immediately after admission, and metronidazole was added as well. -UCx with NG X48 hours, and Blood Cultures remain negative. Procalcitonin - 0.5 --> 0.2, 0.2 today. Stress dosed steroids discontinued. - Mild tachycardia this morning - remains afebrile, normotensive to slightly hypertensive, non-hypoxic on room air, and with normal mentation. Review of I/O's with -4L over the last 2 days - will benefit from IVFs. ?Has history of prior hemothorax following fall and rib fx, as well as notes of a pleural effusion surrounding her infection. Very low threshold for surgical consult for a thoracentesis if the patient's symptoms acutely worsen. Qualifiers: Sepsis type: sepsis due to unspecified organism Sepsis acute organ dysfunction status: with acute organ dysfunction Severe sepsis acute organ dysfunction type: acute renal failure Acute renal failure type: unspecified (2) Acute kidney injury (nontraumatic): Status: Acute Assessment and plan: Resolved. Appears to have responded well to IV fluids (3) Renal mass: Status: Suspected Assessment and plan: Will need contrast-enhanced CT or renal protocol MRI for full evaluation - currently planning for outpatient. (4) Alcohol abuse: Status: Chronic Assessment and plan: Currently showing no signs of withdrawl. Of note, patient has not shown any signs of withdrawl during multiple prior hospitalizations, with lone tachycardia and HTN being due to repeated medication noncompliance (BB therapy, antihypertensive regimen), and tremors and headache being a chronic finding. No hallucinations or diaphoresis in the past. Has previously declined offers for multiple different strategies aimed at assisting her at home and as an outpatient. Has also been dropped by Home Health Services due to intoxication during visits, limiting their ability to effectively help. 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 Discussed importance of abstinence in detail with patient on multiple prior occasions. Will maintain on CIWA protocol and monitor symptoms. (5) Hypertension: Status: Chronic Assessment and plan: Currently being maintained on CCB and BB therapy, with HCTZ on hold. Please note in the past Mrs. Garza has required a number of medications, including ARB and spironolactone, for better control of her blood pressure. Will monitor blood pressure carefully and titrate current medications and initiate new ones as needed. Current readings reasonable. (6) GERD (gastroesophageal reflux disease): Status: Chronic Assessment and plan: GERD with hx of EtOH Gastritis. Continue PPI therapy. (7) DVT prophylaxis: Status: Acute Assessment and plan: SC heparin given AMBER - change to enoxaparin today. Subjective Subjective Interval history since last seen: 73-year-old woman with a history of chronic alcoholism and frequent falls, with a somewhat recent development of a hemothorax requiring hospitalization and chest tube placement, admitted from [facility] Emergency Department 06/10 with apparent sepsis from a suspected pulmonary source. Ms. Garza has a Past Medical History significant for EtOH abuse with frequent falls while intoxicated, HTN, GERD, prior GIB and Gastritis, as well as a history of alcoholic pancreatitis. She has been seen in the ED on multiple occasions after falls, and was hospitalized here with fractures in the past. She was apparently hospitalized at [facility] between 03/11 and 03/21 with rib fractures and hemothorax, requiring placement of a chest tube. The patient presented to the ED with a one-week complaint of cough with production of purulent sputum, along with subjective fever and chills. She had also undergone treatment with oral levofloxacin as an outpatient. Of note, the patient has undergone treatment with oseltamivir on May 19 for diagnosis of influenza. Due to her ongoing nausea and vomiting, Mrs. Garza had also complained of abdominal pain upon presentation to the ED, requiring work-up with a CT scan of her abdomen and pelvis, along with subsequent abdominal ultrasound. A chest x- ray was also obtained. Imaging of the patient's chest was remarkable for multiple left rib fractures with a left-sided pleural effusion on official local radiology read, but virtual radiology had read the same image the night before as with a left lower lobe infiltrate and pleural effusion. Her CT was similarly read as without acute intra-abdominal process, hepatic steatosis, and probable gallbladder sludge, along with a nonobstructing bilateral renal stones. Again noted was a pre-sacral lobulated mass unchanged from prior studies dating back to 2017. However, virtual radiology read of the same film included a left lower lobe infiltrate with left pleural effusions, and a hyperdense renal lesion that warrants further evaluation to rule out renal cell CA. The patient's lab work was remarkable for mild leukocytosis with a left shift but no bandemia, evidence of AMBER with a creatinine rise to 1.8, elevated glucose, and significant lactic acidosis with a lactate of 8.4. Her cardiac biomarkers were and remained negative. Lipase was also checked and low. Urinalysis showed no evidence of infection. The patient was initiated on broad-spectrum antibiotic therapy, and referred for admission for further evaluation and treatment for likely sepsis from a pulmonary source. This morning Mrs. Garza continues to appear improved from original presentation. Her renal function has improved and is at or near her baseline. Renal ultrasound was limited, but showed 2 cystic lesions of the right kidney, with recommendations for additional contrast-enhanced CT or renal protocol MRI for full evaluation of previously noted renal lesions. Her Blood and Urine Cultures remain negative, and her flu was checked and negative as well. She continues to have minimal activity and ambulation while hospitalized. Mildly tachycardic this morning. No overnight events reported. She remains afebrile. Exam Narrative Exam Narrative: General: Patient appears chronically ill appearing, awake and at baseline mental status, NAD Neck: Supple CV: Regular, nontachycardic, S1S2, No rubs, murmurs, or gallops. Pulmonary: Bibasilar crackles without wheezing or rhonchi - all appear improved Abdomen: + Bowel Sounds, soft, nontender, nondistended Vascular: No lower extremity edema Objective Objective Clinical Data: Abnormal lab results 06/15/19 06/15/19 Range/Units 06:40 06:40 RBC 3.51 L (4.00-5.20) m/cumm Hgb 10.6 L (12.0-15.5) g/dL Hct 33.8 L (36.0-46.0) % MCV 96.3 H (80-95) fL MCHC 31.4 L (32.0-36.0) g/dL RDW 16.1 H (11.7-14.6) % Glucose 124 H (70-100) mg/dL Magnesium 1.6 L (1.8-2.4) mg/dL Vital Signs Temperature 37.0 C 06/15/19 07:00 Temperature Source Tympanic 06/15/19 07:00 Pulse 99 H 06/15/19 07:06 Pulse Rhythm Regular 06/15/19 09:03 Pulse 82 06/13/19 16:04 Respiratory Rate 18 06/15/19 07:00 Respiratory Effort Non-Labored 06/15/19 09:03 Respiratory Depth Normal 06/15/19 09:03 Respiratory Pattern Normal 06/15/19 09:03 Blood Pressure 147/87 H 06/15/19 07:00 Blood Pressure Mean 82 06/13/19 16:04 Blood Pressure Position Sitting 06/13/19 12:05 Pulse Oximetry 95 06/15/19 07:00 Oxygen Delivery Method Room Air 06/15/19 07:00 Oxygen Flow Rate 0 06/15/19 07:00 Pain Level 1 06/15/19 09:53 Comment 06/11/19 16:00 Intake & Output 06/14/19 06/15/19 06/15/19 23:59 11:59 23:59 Intake Total 790.25 / 1610.25 1545.001 / 1545.001 Output Total 1725 / 4700 2500 / 2500 Balance -934.75 / -3089.75 -954.999 / -954.999 Weight 69 kg Intake: IV 70.25 / 410.25 325.001 / 325.001 Oral 720 / 1200 1220 / 1220 Output: Urine 1725 / 4700 2500 / 2500 Other: Urine Color Pale Yellow Urine Appearance Clear Clear Stool Size Large Stool Characteristics Formed Brown Laboratory Results WBC 4.47 k/cumm (4.4-10.8) 06/15/19 06:40 RBC 3.51 m/cumm (4.00-5.20) L 06/15/19 06:40 Hgb 10.6 g/dL (12.0-15.5) L 06/15/19 06:40 Hct 33.8 % (36.0-46.0) L 06/15/19 06:40 MCV 96.3 fL (80-95) H 06/15/19 06:40 MCH 30.2 pg (27.0-33.0) 06/15/19 06:40 MCHC 31.4 g/dL (32.0-36.0) L 06/15/19 06:40 RDW 16.1 % (11.7-14.6) H 06/15/19 06:40 Plt Count 188 x1000/uL (130-400) 06/15/19 06:40 MPV 10.0 fL (8.0-11.0) 06/15/19 06:40 Immature Gran % 2.5 06/15/19 06:40 Neutrophils % 49.2 06/15/19 06:40 Lymphocytes % 31.1 06/15/19 06:40 Monocytes % 11.9 06/15/19 06:40 Eosinophils % 5.1 06/15/19 06:40 Basophils % 0.2 06/15/19 06:40 Absolute Neutrophils 2.20 k/cumm (1.2-6.7) 06/15/19 06:40 Absolute Lymphocytes 1.39 k/cumm (1.2-3.4) 06/15/19 06:40 Absolute Monocytes 0.53 k/cumm (0.11-0.7) 06/15/19 06:40 Absolute Eosinophils 0.23 k/cumm (0.0-0.7) 06/15/19 06:40 Absolute Basophils 0.01 k/cumm (0.0-0.2) 06/15/19 06:40 PT 9.6 sec (9.3-11.0) 06/10/19 20:10 INR 1.0 (0.9-1.1) 06/10/19 20:10 APTT 22.1 sec (21.0-31.4) 06/10/19 20:10 D-Dimer 1556 ng/mlFEU (<500) H 06/10/19 20:10 Sodium 140 mmol/L (136-145) 06/15/19 06:40 Potassium 4.0 mmol/L (3.5-5.1) 06/15/19 06:40 Chloride 105 mmol/L (98-107) 06/15/19 06:40 Carbon Dioxide 28.6 mmol/L (21.0-32.0) 06/15/19 06:40 Anion Gap 6.4 mmol/L (3-11) 06/15/19 06:40 BUN 15 mg/dL (7-18) 06/15/19 06:40 Creatinine 0.94 mg/dL (0.55-1.02) 06/15/19 06:40 Estimated GFR/1.73 m2 58.37 (mL/min/1.73m2) 06/15/19 06:40 Glucose 124 mg/dL (70-100) H 06/15/19 06:40 Lactate 1.1 mmol/L (0.6-1.4) 06/11/19 11:58 Calcium 8.8 mg/dL (8.5-10.1) 06/15/19 06:40 Magnesium 1.6 mg/dL (1.8-2.4) L 06/15/19 06:40 Total Bilirubin 1.1 mg/dL (0.2-1.0) H 06/11/19 06:50 AST 24 U/L (15-37) 06/11/19 06:50 ALT 26 U/L (14-59) 06/11/19 06:50 Alkaline Phosphatase 107 U/L (46-116) 06/11/19 06:50 Troponin I < 0.05 ng/mL (0.00-0.06) 06/11/19 06:50 Total Protein 6.3 g/dL (6.4-8.2) L 06/11/19 06:50 Albumin 3.2 g/dL (3.4-5.0) L 06/11/19 06:50 Lipase 58 U/L (73-393) L 06/10/19 20:10 Procalcitonin 0.2 ng/mL 06/15/19 06:40 Urine Color Yellow (Yellow) 06/10/19 23:00 Urine Clarity Clear (Clear) 06/10/19 23:00 Urine pH 5.5 (5-8) 06/10/19 23:00 Ur Specific Channing 1.025 (1.005-1.025) 06/10/19 23:00 Urine Protein Negative mg/dL (Negative) 06/10/19 23:00 Urine Ketones 80 mg/dL (Negative) H 06/10/19 23:00 Urine Blood Negative (Negative) 06/10/19 23:00 Urine Nitrite Negative (Negative) 06/10/19 23:00 Urine Bilirubin Negative (Negative) 06/10/19 23:00 Urine Urobilinogen 0.2 EU/dL (Up TO 0.2) 06/10/19 23:00 Ur Leukocyte Esterase Negative (Negative) 06/10/19 23:00 Urine Glucose Negative mg/dL (Negative) 06/10/19 23:00 Vancomycin Trough 10.6 ug/mL (10.0-20.0) 06/12/19 22:55 Legionella Source Cancelled 06/11/19 05:45 Legionella Reprt Status Cancelled 06/11/19 05:45 Legionella Final Result Cancelled 06/11/19 05:45
--- NOTE | 2019-06-15 12:52 | PT.INIE ---
Date of service: 06/15/19 Time of Service: 11:22 PT Notes Inpatient Physical Therapy Evaluation Date: 06/15/2019 Referring Doctor: Robert Medina MD PT Orders: PT CONSULT: Eval/Treat? Precautions: Fall. Standard. Activity as tolerated. Patient Profile/Admitting Diagnosis: Patient is a 74-year-old female with past medical history significant for ETOH abuse, back pain, depression, and frequent falling who presented to the ED 06/10/2019 with chief complaints of shortness of breath, weakness, productive cough, and pain in the upper abdominal quadrant. Patient is diagnosed with community-acquired pneumonia, sepsis, lactic acidosis, acute kidney injury, and suspected renal mass with past medical history significant for ETOH abuse. PMHX: Medical History Alcohol abuse (Chronic) Alcoholic ketosis (Resolved) Allergic rhinitis (Chronic) Anemia (Chronic 12/20/16) Back pain, chronic (Chronic) Cataract (Chronic 11/07/15) Cervical radicular pain (Chronic) Chronic alcoholic gastritis (Chronic 10/12/17) Depression (Chronic) Elev transaminase/LDH (Chronic) Falling (Chronic) Genital herpes simplex (Chronic) GERD (gastroesophageal reflux disease) (Chronic) GI bleed (Chronic 12/20/16) Headache (Chronic) Hyperlipidemia (Chronic) Hypertension (Chronic) Macrocytosis (Chronic 09/26/14) Multiple rib fractures (Acute) Non-cardiac chest pain (Chronic 09/21/16) Osteoarthritis (Chronic) Osteopenia (Chronic) 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) Pleural effusion on left (Acute) Right rib fracture (Resolved) Sciatica (Chronic) Tubular adenoma of colon (Chronic 01/28/17) Urinary incontinence (Chronic) Wernicke encephalopathy (Chronic) Surgical History Bladder Surgery Colonoscopy - MAC (01/28/17) EGD - MAC (12/20/16) Ligation of fallopian tube Repair bladder injury, simple Social History/Home Situation: Leticia reports that she lives in an assisted living facility in [place]. She has a caregiver who comes in daily 5 days per week for 2 hours each time to assist with laundry, minor house chores, and grocery shopping. Patient is independent with MRADLs using a straight cane. She has a walker which she states she does not use often. She receives meals on wheels. She no longer drives. Equipment Owned/DME: FWW, SC, grab bars Subjective: Patient is agreeable to a PT evaluation and treatment today. She did report discomfort on her R shoulder when she was maneuvering the FWW to the right to make a turn. She did report being more comfortable with using the straight cane during walking activity than the FWW. Objective: General Observation: Leticia was seen sitting on her recliner upon arrival of this PT and student PT. Bilateral TEDS in legs. Telemetry monitoring in place. Mental Status: Alert and oriented x 4 Pain: No complaints of abdominal pain received throughout session. ROM: R UE not assessed due to pain and discomfort. Right Lower Extremity: Hip flexion WFL. Hip abduction WFL. Knee flexion WFL. Ankle dorsiflexion WFL. Ankle plantarflexion WFL. Left Lower Extremity: Hip flexion WFL. Hip abduction WFL. Knee flexion WFL. Ankle dorsiflexion WFL. Ankle plantarflexion WFL. Strength (assessed in supine): Right Lower Extremity: Hip flexors 3-/5. Knee extensors 4/5. Ankle dorsiflexors 5/5. Ankle plantarflexors 5/5. Left Lower Extremity: Hip flexors 3-/5. Knee extensors 4/5. Ankle dorsiflexors 5/5. Ankle plantarflexors 5/5. Bed Mobility/Transfers: Rolling CGA Supine to sit CGA Sit to supine CGA Sit to stand CGA Stand to sit CGA Bed to chair CGA Chair to bed CGA Gait: Patient exhibited reciprocal gait for 120 feet using a FWW headed to the therapy gym and using a straight cane going back from the gym to her room with mild breathlessness observed with use of the cane. She appeared to have decreased step length. She denies headache, chest pain, and dizziness. Balance: Static Sitting: Normal Dynamic Sitting: Good Static Standing: Good Dynamic Standing: Fair Special Tests: Mobility Limitations Standardized Measure [facility] AM-PAC 6 clicks Basic Mobility Inpatient Short Form: Raw Score: 18 CMS Score: 47% deficit Informed Consent/Education: Patient instructed in purpose of PT consult and plan of care. Assessment: Patient is a 74-year-old female presenting with community-acquired pneumonia, sepsis, lactic acidosis, acute kidney injury, and suspected renal mass with past medical history significant for ETOH abuse presenting with impairments and functional limitations listed below requiring skilled PT services at the SNF. Patient presents with clinical signs and symptoms consistent with current/admitting diagnoses that have resulted to mobility limitations, gait instability, generalized weakness, and impairment of motor control as demonstrated by the following impairment level findings: 1. Decreased strength to B LE major muscle groups 2. Impaired standing balance 3. Impaired activity tolerance Impairments are contributing to the following functional limitations: 1. Dependent bed mobility skills 2. Increased dependence with transfers 3. Inability to safely ambulate without assistive device and physical assistance 4. Increase completion time for mobility ADL performance 5. Increased fall risk 6. Inability to negotiate steps alone safely Patient is assessed as a [id number] moderate complexity based on the following: History: Patient is a 74-year-old female presenting with community-acquired pneumonia, sepsis, lactic acidosis, acute kidney injury, and suspected renal mass with past medical history significant for ETOH abuse Examination: Demonstrable impairment in strength, balance, and range of motion with underlying impairments and functional limitations as documented above Presentation: Evolving Decision Makin moderate complexity Goals: Goals X1 week 1. Supine-Sit independent 2. Sit-Supine independent 3. Sit-Stand independent 4. Stand-Sit independent 5. Bed-Chair independent 6. Chair-Bed independent 7. Independent gait on level surface with use of straight cane for at least 300 feet without report of pain nor dyspnea 8. Independent stair negotiation while holding onto bilateral rails for at least 5 steps without report of pain nor dyspnea 9. Independent with home exercise program 10. Good static and dynamic standing balance/tolerance DISCHARGE RECOMMENDATIONS: Patient is recommended to be discharged to a SNF with continued PT treatment and use of SC during ambulatory activities. TREATMENT CODE/TIME: 16041 x 32 minutes beginning at 11:22 AM. Thank you very much for this referral. Tawana Cruz PT, DPT, CLT [facility]
--- NOTE | 2019-06-15 13:46 | PT.INTREAT ---
Date of service: 06/15/19 Time of Service: 13:46 PT Notes 06/15/19 SUBJECTIVE: Leticai stating she is starting to get tired. She would like to go back to bed after PT. She notes she utilizes a cane in her home and she tends to hold onto her flynn when she has that available. OBJECTIVE: Seated on commode when I enter her room. She is agreeable to PT treatment. TRANSFERS Sit to stand: S Stand to sit: S Sit to supine: I GAIT Device: SPC Weight bearing: Full Assist: CGA Distance: 120' Deviation: Slow cautious gait pattern. ASSESSMENT: Pt tolerates PT well this afternoon. No LOB with use of SPC without her grabbing for furniture or the flynn. PLAN: Continue current POC progressing toward's established goals. Treatment time: 15 minutes [id number] Odette Saul PTA Clinic location: [facility] [place], [place]
[2019-06-15] MEDS: Enoxaparin 40 MG/0.4 ML SYR SC (13:51)
[2019-06-15] MEDS: Lidocaine Patch Removal 1 EACH TD (20:29)
[2019-06-15] MEDS: LORazepam 1 MG TAB 3 MG PO (21:00)
[2019-06-16] VITALS (8 sets, daily range): BP systolic 133–159; BP diastolic 80–99; PULSE 89–106; RESP 17–18; TEMP 36–37; O2SAT 93–97
[2019-06-16] MEDS: metroNIDAZOLE 500 MG TAB PO ×3 (00:17→15:10)
[2019-06-16] MEDS: CEFEPIME 2 GM in Normal Saline 100 ML IVPB (01:59)
[2019-06-16] MEDS: Normal Saline 1,000 ML 125 ML IV (04:15)
[2019-06-16] MEDS: Albuterol/Ipratropium 3 ML UPD VIAL UPD (06:20)
[2019-06-16] MEDS: Acetaminophen 325 MG TAB PO ×2 (06:39→15:10)
[2019-06-16 06:52] LABS: Abs Immature Grans 0.15 k/cumm (0.0-0.09); Absolute Basophil Count 0.02 k/cumm (0.0-0.2); Absolute Eosinophil Count 0.36 k/cumm (0.0-0.7); Absolute Lymphocyte Count 1.15 k/cumm (1.2-3.4); Absolute Monocyte Count 0.47 k/cumm (0.11-0.7); Absolute Neutrophil Count 2.14 k/cumm (1.2-6.7); Basophils % 0.5; Eosinophils % 8.4; Immature Grans % 3.5; Lymphocytes % 26.8; Mean Corp. HGB Concentration 31.3 g/dL (32.0-36.0); Mean Corpuscular Hemoglobin 30.1 pg (27.0-33.0); Mean Corpuscular Volume 96.4 fL (80-95); Mean Platelet Volume 9.1 fL (8.0-11.0); Neutrophils % 49.8; Platelet Count 166 x1000/uL (130-400); RBC 3.32 m/cumm (4.00-5.20); RBC Distribution Width 16.4 % (11.7-14.6); White Blood Cell Count 4.29 k/cumm (4.4-10.8)
[2019-06-16 06:58] LABS: Anion Gap 6.3 mmol/L (3-11); BUN 18 mg/dL (7-18); CO2 28.7 mmol/L (21.0-32.0); CREATININE 0.96 mg/dL (0.55-1.02); Calcium 8.9 mg/dL (8.5-10.1); Chloride 106 mmol/L (98-107); Estimated GFR 56.97 (mL/min/1.73m2); Glucose 113 mg/dL (70-100); Magnesium 1.7 mg/dL (1.8-2.4); Potassium 3.9 mmol/L (3.5-5.1); Sodium 141 mmol/L (136-145)
[2019-06-16] MEDS: Benzonatate 200 MG CAP PO ×3 (07:40→19:54)
[2019-06-16] MEDS: Pantoprazole 40 MG TABCR PO (07:40)
[2019-06-16] MEDS: Multivitamin TAB 1 TAB PO (07:40)
[2019-06-16] MEDS: Gabapentin 300 MG CAP PO ×2 (07:40→19:54)
[2019-06-16] MEDS: Thiamine 100 MG TAB PO (07:40)
[2019-06-16] MEDS: Folic Acid 1 MG TAB PO (07:40)
[2019-06-16] MEDS: amLODIPine 10 MG TAB PO (07:41)
[2019-06-16] MEDS: guaiFENesin 600 MG TABCR PO ×2 (07:41→19:54)
[2019-06-16] MEDS: Metoprolol 50 MG TAB PO ×2 (07:41→19:54)
[2019-06-16] MEDS: Venlafaxine 37.5 MG CAPCR PO (07:42)
[2019-06-16] MEDS: Venlafaxine 150 MG CAPCR PO (07:42)
[2019-06-16] MEDS: Lidocaine 5% Patch 1 PATCH TP (07:43)
[2019-06-16 07:46] LABS: Diff Comment Agrees w/ Instrument; RBC Morphology Normal
[2019-06-16] MEDS: MAGNESIUM SULFATE 2 GM/50 ML BAG IVPB (08:01)
[2019-06-16] MEDS: Normal Saline Flush 10 ML SYR IVP (08:39)
[2019-06-16] MEDS: Normal Saline 500 ML IV (08:40)
--- NOTE | 2019-06-16 08:54 | DI.RAD_ITS ---
EXAM: XR CHEST 2V PA LATERAL CLINICAL HISTORY: follow up pneumonia TECHNIQUE: COMPARISON: XR CHEST 2V PA LATERAL from 06/10/2019 FINDINGS: Today's PA and lateral examination is compared with AP and lateral examination from June 10. No te is again made of multiple left rib fractures with associated left pleural effusion. No pneumothor ax identified. Right lung is clear. Streaky areas of increased radiodensity in left lung base may r epresent areas of atelectasis. Consolidation not excluded. Lungs appear mildly hypoventilated in co mparison to the previous examination. IMPRESSION: Findings suggesting decreased pulmonary ventilation since the previous examination of June 10. Increased atelectasis may be present in the left lung base. Interval development of pneumonia not ex cluded.
--- NOTE | 2019-06-16 09:32 | DI.VRAD_ITS ---
PROCEDURE INFORMATION: Exam: XR Chest, 2 Views Exam date and time: 06/16/2019 8:52 AM Clinical history: 74 years old, female; Other: Follow up pneumonia TECHNIQUE: Imaging protocol: XR of the chest Views: 2 views. COMPARISON: CR XR CHEST 2V PA LATERAL 06/10/2019 7:49 PM FINDINGS: Lungs: Opacity in left costophrenic angle may represent mild atelectasis or pneumonia. Pleural space: There may be small left pleural effusion. Heart/Mediastinum: Stable cardiac silhouette Bones/joints: Osseous structures are stable IMPRESSION: 1. Opacity in left costophrenic angle may represent mild atelectasis or pneumonia. 2. There may be small left pleural effusion. . Dictated and Authenticated by: Fauzia Barfield MD. Ordering:JENNIE Ruffin MD
[2019-06-16] MEDS: Magnesium Oxide 400 MG TAB PO ×2 (10:09→21:17)
--- NOTE | 2019-06-16 10:43 | W.PM.PROGNOT ---
Date of Service Date of service: 06/16/19 Time of Service: 10:43 Assessment and Plan Assessment and plan (1) Sepsis: Status: Acute Assessment and plan: Due to HCAP vs aspiration pneumonia, present on admission, likely complicated by atelectasis and rib fx, as seen today on repeat CXR Improving clinically. D/c vancomycin. Continue cefepime and metronidazole (day 6), vibrapep, add incentive spirometry. Recheck procalcitonin in am. Qualifiers: Sepsis type: sepsis due to unspecified organism Sepsis acute organ dysfunction status: with acute organ dysfunction Severe sepsis acute organ dysfunction type: acute renal failure Acute renal failure type: unspecified (2) Acute kidney injury (nontraumatic): Status: Acute Assessment and plan: Resolved. D/c IVF. Not clinically dehydrated at this point. (3) Renal mass: Status: Suspected Assessment and plan: Will need outpatient contrast-enhanced CT or renal protocol MRI (4) Alcohol abuse: Status: Chronic Assessment and plan: Not actively withdrawing. Continue monitoring on CIWA. Continue thiamine. Add MVI. (5) Hypertension: Status: Chronic Assessment and plan: BP 147/85 this am. D/C IVF. Continue CCB and BB therapy; continue to hold HCTZ. May require reintroduction of ARB and spironolactone. (6) GERD (gastroesophageal reflux disease): Status: Chronic Assessment and plan: GERD with hx of EtOH Gastritis. Continue PPI therapy. (7) Photophobia of right eye: Status: Acute Assessment and plan: Provide a black eye patch and obtain medical records from [facility]. Patient states she ran out of her prescription for eye drops - will attempt to find out which drops. She states the eye patch is supposed to be black. (8) Atelectasis of left lung: Status: Acute Assessment and plan: IS (9) DVT prophylaxis: Status: Acute Assessment and plan: TEDs, SCD's, SC lovenox (10) Generalized weakness: Status: Resolved Assessment and plan: Continue to work with PT (11) Discharge planning issues: Status: Acute Assessment and plan: Pending PT recommendations Subjective Subjective Interval history since last seen: Leticia states she still gets very short of breath with any exertion, long periods of talking or when she is taking medications. Dizzy only when walking. Got nauseated in XR today. No nausea now. CP when she takes a deep breath - on the left where she has the broken rib. The patient reports excruciating pain to her right eye whenever it is exposed to light - ongoing issue since her hospitalization at [facility] (she can't tell me when); she had to have surgery on that eye - she cannot tell me when this was or what the condition was. Exam Narrative Exam Narrative: General: very pleasant elderly female, A&Ox3, sitting comfortably in a chair, but does have mild dyspnea after speaking a few sentences HEENT: R eye with a clear eye patch on, secured with tape, MMM Heart: RRR, ?quiet KIRTI Lungs: Crackles at B bases GI: abdomen is soft, nontender, nondistended Extremities: Trace edema BLE's, +1 pedal pulses B, wearing TEDs. Objective Objective Clinical Data: Abnormal lab results 06/16/19 06/16/19 Range/Units 06:30 06:30 WBC 4.29 L (4.4-10.8) k/cumm RBC 3.32 L (4.00-5.20) m/cumm Hgb 10.0 L (12.0-15.5) g/dL Hct 32.0 L (36.0-46.0) % MCV 96.4 H (80-95) fL MCHC 31.3 L (32.0-36.0) g/dL RDW 16.4 H (11.7-14.6) % Absolute Lymphocytes 1.15 L (1.2-3.4) k/cumm Glucose 113 H (70-100) mg/dL Magnesium 1.7 L (1.8-2.4) mg/dL Vital Signs Temperature 37.0 C 06/16/19 07:09 Temperature Source Tympanic 06/16/19 07:09 Pulse 91 H 06/16/19 07:10 Pulse Rhythm Regular 06/16/19 07:51 Pulse 82 06/13/19 16:04 Respiratory Rate 18 06/16/19 07:09 Respiratory Effort Non-Labored 06/16/19 07:51 Respiratory Depth Shallow 06/16/19 07:51 Respiratory Pattern Normal 06/16/19 07:51 Blood Pressure 147/85 H 06/16/19 07:09 Blood Pressure Mean 82 06/13/19 16:04 Blood Pressure Position Sitting 06/13/19 12:05 Pulse Oximetry 95 06/16/19 07:09 Oxygen Delivery Method Room Air 06/16/19 07:09 Oxygen Flow Rate 0 06/16/19 07:09 Pain Level 2 06/16/19 07:39 Comment 06/11/19 16:00 Intake & Output 06/15/19 06/15/19 06/16/19 11:59 23:59 11:59 Intake Total 1595.001 / 3771.668 2176.667 / 3771.668 2118.750 / 2118.750 Output Total 2500 / 4450 1950 / 4450 2750 / 2750 Balance -904.999 / -678.332 226.667 / -678.332 -631.250 / -631.250 Weight 69 kg 69.6 kg Intake: IV 375.001 / 2007.241 0181.667 / 0992.669 2447.750 / 1368.750 Oral 1220 / 1920 700 / 1920 750 / 750 Output: Urine 2500 / 4450 1950 / 4450 2750 / 2750 Other: Urine Color Yellow Pale Pale Yellow Yellow Urine Appearance Clear Clear Clear Stool Size Large Stool Characteristics Soft Formed Brown Laboratory Results WBC 4.29 k/cumm (4.4-10.8) L 06/16/19 06:30 RBC 3.32 m/cumm (4.00-5.20) L 06/16/19 06:30 Hgb 10.0 g/dL (12.0-15.5) L 06/16/19 06:30 Hct 32.0 % (36.0-46.0) L 06/16/19 06:30 MCV 96.4 fL (80-95) H 06/16/19 06:30 MCH 30.1 pg (27.0-33.0) 06/16/19 06:30 MCHC 31.3 g/dL (32.0-36.0) L 06/16/19 06:30 RDW 16.4 % (11.7-14.6) H 06/16/19 06:30 Plt Count 166 x1000/uL (130-400) 06/16/19 06:30 MPV 9.1 fL (8.0-11.0) 06/16/19 06:30 Immature Gran % 3.5 06/16/19 06:30 Neutrophils % 49.8 06/16/19 06:30 Lymphocytes % 26.8 06/16/19 06:30 Monocytes % 11.0 06/16/19 06:30 Eosinophils % 8.4 06/16/19 06:30 Basophils % 0.5 06/16/19 06:30 Absolute Neutrophils 2.14 k/cumm (1.2-6.7) 06/16/19 06:30 Absolute Lymphocytes 1.15 k/cumm (1.2-3.4) L 06/16/19 06:30 Absolute Monocytes 0.47 k/cumm (0.11-0.7) 06/16/19 06:30 Absolute Eosinophils 0.36 k/cumm (0.0-0.7) 06/16/19 06:30 Absolute Basophils 0.02 k/cumm (0.0-0.2) 06/16/19 06:30 Differential Comment Agrees w/ instrument 06/16/19 06:30 RBC Morphology Normal 06/16/19 06:30 PT 9.6 sec (9.3-11.0) 06/10/19 20:10 INR 1.0 (0.9-1.1) 06/10/19 20:10 APTT 22.1 sec (21.0-31.4) 06/10/19 20:10 D-Dimer 1556 ng/mlFEU (<500) H 06/10/19 20:10 Sodium 141 mmol/L (136-145) 06/16/19 06:30 Potassium 3.9 mmol/L (3.5-5.1) 06/16/19 06:30 Chloride 106 mmol/L (98-107) 06/16/19 06:30 Carbon Dioxide 28.7 mmol/L (21.0-32.0) 06/16/19 06:30 Anion Gap 6.3 mmol/L (3-11) 06/16/19 06:30 BUN 18 mg/dL (7-18) 06/16/19 06:30 Creatinine 0.96 mg/dL (0.55-1.02) 06/16/19 06:30 Estimated GFR/1.73 m2 56.97 (mL/min/1.73m2) 06/16/19 06:30 Glucose 113 mg/dL (70-100) H 06/16/19 06:30 Lactate 1.1 mmol/L (0.6-1.4) 06/11/19 11:58 Calcium 8.9 mg/dL (8.5-10.1) 06/16/19 06:30 Magnesium 1.7 mg/dL (1.8-2.4) L 06/16/19 06:30 Total Bilirubin 1.1 mg/dL (0.2-1.0) H 06/11/19 06:50 AST 24 U/L (15-37) 06/11/19 06:50 ALT 26 U/L (14-59) 06/11/19 06:50 Alkaline Phosphatase 107 U/L (46-116) 06/11/19 06:50 Troponin I < 0.05 ng/mL (0.00-0.06) 06/11/19 06:50 Total Protein 6.3 g/dL (6.4-8.2) L 06/11/19 06:50 Albumin 3.2 g/dL (3.4-5.0) L 06/11/19 06:50 Lipase 58 U/L (73-393) L 06/10/19 20:10 Procalcitonin 0.2 ng/mL 06/15/19 06:40 Urine Color Yellow (Yellow) 06/10/19 23:00 Urine Clarity Clear (Clear) 06/10/19 23:00 Urine pH 5.5 (5-8) 06/10/19 23:00 Ur Specific [place] 1.025 (1.005-1.025) 06/10/19 23:00 Urine Protein Negative mg/dL (Negative) 06/10/19 23:00 Urine Ketones 80 mg/dL (Negative) H 06/10/19 23:00 Urine Blood Negative (Negative) 06/10/19 23:00 Urine Nitrite Negative (Negative) 06/10/19 23:00 Urine Bilirubin Negative (Negative) 06/10/19 23:00 Urine Urobilinogen 0.2 EU/dL (Up TO 0.2) 06/10/19 23:00 Ur Leukocyte Esterase Negative (Negative) 06/10/19 23:00 Urine Glucose Negative mg/dL (Negative) 06/10/19 23:00 Vancomycin Trough Cancelled 06/16/19 13:00 Legionella Source Cancelled 06/11/19 05:45 Legionella Reprt Status Cancelled 06/11/19 05:45 Legionella Final Result Cancelled 06/11/19 05:45 CXR: 1. Opacity in left costophrenic angle may represent mild atelectasis or pneumonia. 2. There may be small left pleural effusion.
--- NOTE | 2019-06-16 11:26 | PT.INTREAT ---
Date of service: 06/16/19 PT Notes Inpatient Physical Therapy Treatment Note [facility] Date: 06/16/19 SUBJECTIVE: Leticia states that she is doing better today. She offers no complaints to me this am. OBJECTIVE: [] BED MOBILITY/TRANSFERS Supine-sit: S Sit-supine: S Sit-stand: S Stand-sit: S GAIT Assistive Device: pushing IV pole Weight bearing: full Assist: SBA Distance: approx 600' ASSESSMENT: tolerated session well. Slight c/o dizziness after session, which subsided once she sat down. No LOB noted with ambulation or transfers. She seemed safe. PLAN: will continue towards established goals. TREATMENT CODE/TIME: 20 min. [id number].
[2019-06-16] MEDS: Enoxaparin 40 MG/0.4 ML SYR SC (13:27)
--- NOTE | 2019-06-16 16:39 | PDOC.CMPRO ---
Care Management Progress Note S/O: Leticia was sleeping when I entered. Did not wake her today for discussion. A: Leticia is a 74 year old female admitted to [facility] on 06/10/2019 due to Sepsis, Pneumonia, AMBER. P: Anticipate Leticia will return home when medically cleared with services- RN, PT, OT. Need to clarify if this will be a resume or new services. Need to verify that still has this client on the active patient list. CM to coordinate transportation via [facility] private vehicle. CM will also contact Leticia Huffman's caregiver (c:[phone]) day of discharge to inform her that she will be returning home.
[2019-06-16] MEDS: Ibuprofen 600 MG TAB PO (19:53)
[2019-06-16] MEDS: Lidocaine Patch Removal 1 EACH TD (19:54)
[2019-06-16] MEDS: LORazepam 1 MG TAB 3 MG PO (21:17)
[2019-06-17] VITALS (10 sets, daily range): BP systolic 139–172; BP diastolic 78–96; PULSE 80–100; RESP 17–18; TEMP 36.4–37.1; O2SAT 96–99
[2019-06-17] MEDS: metroNIDAZOLE 500 MG TAB PO ×4 (00:18→23:14)
[2019-06-17] MEDS: CEFEPIME 2 GM in Normal Saline 100 ML IVPB (02:32)
[2019-06-17] MEDS: Normal Saline Flush 10 ML SYR IVP ×2 (02:33→09:08)
[2019-06-17 07:22] LABS: Abs Immature Grans 0.16 k/cumm (0.0-0.09); HCT 33.8 % (36.0-46.0); HGB 10.6 g/dL (12.0-15.5); Mean Corp. HGB Concentration 31.4 g/dL (32.0-36.0); Mean Corpuscular Hemoglobin 30.3 pg (27.0-33.0); Mean Corpuscular Volume 96.6 fL (80-95); Mean Platelet Volume 9.7 fL (8.0-11.0); Platelet Count 215 x1000/uL (130-400); RBC Distribution Width 16.6 % (11.7-14.6); White Blood Cell Count 4.07 k/cumm (4.4-10.8)
[2019-06-17 07:32] LABS: Anion Gap 7.8 mmol/L (3-11); BUN 15 mg/dL (7-18); CO2 28.2 mmol/L (21.0-32.0); CREATININE 0.83 mg/dL (0.55-1.02); Calcium 9.5 mg/dL (8.5-10.1); Chloride 107 mmol/L (98-107); Glucose 105 mg/dL (70-100); Potassium 3.6 mmol/L (3.5-5.1); Sodium 143 mmol/L (136-145)
[2019-06-17 07:56] LABS: Procalcitonin 0.3 ng/mL
[2019-06-17 08:03] LABS: Absolute Eosinophil Count 0.28 k/cumm (0.0-0.7); Absolute Lymphocyte Count 1.22 k/cumm (1.2-3.4); Absolute Monocyte Count 0.41 k/cumm (0.11-0.7); Absolute Neutrophil Count 2.12 k/cumm (1.2-6.7)
[2019-06-17 08:04] LABS: Diff Comment Manual Differential; RBC Morphology Normal
[2019-06-17] MEDS: Lidocaine 5% Patch 1 PATCH TP (09:08)
[2019-06-17] MEDS: Folic Acid 1 MG TAB PO (09:09)
[2019-06-17] MEDS: Venlafaxine 37.5 MG CAPCR PO (09:09)
[2019-06-17] MEDS: Gabapentin 300 MG CAP PO ×2 (09:09→20:29)
[2019-06-17] MEDS: Metoprolol 50 MG TAB PO ×2 (09:09→20:29)
[2019-06-17] MEDS: Pantoprazole 40 MG TABCR PO (09:09)
[2019-06-17] MEDS: amLODIPine 10 MG TAB PO (09:09)
[2019-06-17] MEDS: Acetaminophen 325 MG TAB PO ×2 (09:09→17:58)
[2019-06-17] MEDS: Benzonatate 200 MG CAP PO ×3 (09:09→20:29)
[2019-06-17] MEDS: guaiFENesin 600 MG TABCR PO ×2 (09:09→20:29)
[2019-06-17] MEDS: Multivitamin w/Minerals TAB 1 TAB PO (09:09)
[2019-06-17] MEDS: Thiamine 100 MG TAB PO (09:09)
[2019-06-17] MEDS: Venlafaxine 150 MG CAPCR PO (09:10)
[2019-06-17] MEDS: Magnesium Oxide 400 MG TAB PO ×2 (09:56→22:02)
--- NOTE | 2019-06-17 11:58 | W.PM.PROGNOT ---
Date of Service Date of service: 06/17/19 Time of Service: 11:59 Assessment and Plan Assessment and plan (1) Sepsis: Status: Acute Assessment and plan: Due to HCAP vs aspiration pneumonia, present on admission, likely complicated by atelectasis due to L rib fx. Clinically improving; however, procalcitonin is slightly worse today (0.2 from 0.1) after discontinuation of vancomycin. Continue cefepime and metronidazole (day 7), vibrapep, incentive spirometry. Recheck procalcitonin in am. Qualifiers: Sepsis type: sepsis due to unspecified organism Sepsis acute organ dysfunction status: with acute organ dysfunction Severe sepsis acute organ dysfunction type: acute renal failure Acute renal failure type: unspecified (2) Acute kidney injury (nontraumatic): Status: Acute Assessment and plan: Resolved. Not clinically dehydrated at this point - off IVF. (3) Renal mass: Status: Suspected Assessment and plan: Will need outpatient contrast-enhanced CT or renal protocol MRI (4) Alcohol abuse: Status: Chronic Assessment and plan: Not actively withdrawing. Continue monitoring on CIWA. Continue thiamine, MVI. (5) Hypertension: Status: Chronic Assessment and plan: Continue CCB and BB therapy; reintroduce HCTZ. (6) GERD (gastroesophageal reflux disease): Status: Chronic Assessment and plan: GERD with hx of EtOH Gastritis. Continue PPI therapy. (7) Photophobia of right eye: Status: Acute Assessment and plan: Now has a black eye patch; awaiting medical records from [facility]. Patient states she ran out of her prescription for eye drops - will attempt to find out which drops. (8) Atelectasis of left lung: Status: Acute Assessment and plan: Continue IS and vibrapep (9) Arthralgia of temporomandibular joint: Status: Acute Assessment and plan: While the patient states her pain is new, per chart review, this diagnosis actually dates back as far as 2014. Seems to be improving with ibuprofen, which we will cautiously continue. (10) Generalized weakness: Status: Resolved Assessment and plan: Continue to work with PT, who as of 06/15/19 was recommending SNF. (11) Discharge planning issues: Status: Acute Assessment and plan: PT recommends SNF - discussed with case management. DNR/DNI. (12) DVT prophylaxis: Status: Acute Assessment and plan: TEDs, SCD's, SC lovenox Subjective Subjective Interval history since last seen: Leticia states that this morning, when she first woke up, she felt very short of breath. Unfortunately, she did not tell anyone so she did not get any breathing treatments. She also reports a lot of nasal drainage today and feeling like she might have postnasal drip. Since yesterday evening, she has been reporting to me that she has had bilateral jaw and lateral neck pain, better with ibuprofen tried overnight. She denies dizziness, chest pain except for when she coughs, which is when she gets the left-sided rib pain. She endorses nausea this morning after breakfast, which has now resolved. Exam Narrative Exam Narrative: General: very pleasant elderly female, A&Ox3, sitting comfortably in a chair, no dyspnea observed today; she does clear her throat several times while talking to me. HEENT: R eye with now a black patch on; MMM; TTP B TMJ and laterally submandibularly Heart: RRR, ?quiet KIRTI Lungs: Crackles at B bases have improved GI: abdomen is soft, nontender, nondistended Extremities: No edema BLE's, +1 pedal pulses B, wearing TEDs. Objective Objective Clinical Data: Abnormal lab results 06/17/19 06/17/19 Range/Units 06:23 06:23 WBC 4.07 L (4.4-10.8) k/cumm RBC 3.50 L (4.00-5.20) m/cumm Hgb 10.6 L (12.0-15.5) g/dL Hct 33.8 L (36.0-46.0) % MCV 96.6 H (80-95) fL MCHC 31.4 L (32.0-36.0) g/dL RDW 16.6 H (11.7-14.6) % Glucose 105 H (70-100) mg/dL Vital Signs Temperature 37.1 C 06/17/19 07:14 Temperature Source Tympanic 06/17/19 07:14 Pulse 100 H 06/17/19 07:15 Pulse Rhythm Regular 06/17/19 09:17 Pulse 82 06/13/19 16:04 Respiratory Rate 17 06/17/19 07:14 Respiratory Effort 06/17/19 09:17 Respiratory Depth Shallow 06/17/19 09:17 Respiratory Pattern Normal 06/17/19 09:17 Blood Pressure 166/95 H 06/17/19 07:14 Blood Pressure Mean 82 06/13/19 16:04 Blood Pressure Position Sitting 06/13/19 12:05 Pulse Oximetry 97 06/17/19 07:14 Oxygen Delivery Method Room Air 06/17/19 07:14 Oxygen Flow Rate 0 06/17/19 07:14 Pain Level 5 06/17/19 07:14 Comment 06/11/19 16:00 Intake & Output 06/16/19 06/16/19 06/17/19 11:59 23:59 11:59 Intake Total 2910.417 / 3390.417 480 / 3390.417 1900 / 1900 Output Total 2750 / 5300 2550 / 5300 300 / 300 Balance 160.417 / -1909.583 -2070 / -2824.409 3335 / 1600 Weight 69.6 kg 68.8 kg Intake: IV 1710.417 / 1710.417 110 / 110 Oral 1200 / 1680 480 / 1680 1790 / 1790 Output: Urine 2750 / 5300 2550 / 5300 300 / 300 Other: Urine Color Pale Yellow Yellow Yellow Urine Appearance Clear Clear Clear Urine Odor None Normal Comment large amount Stool Size Large Stool Characteristics Soft Formed Voiding Methods Toilet Diaper Incontinent Laboratory Results WBC 4.07 k/cumm (4.4-10.8) L 06/17/19 06:23 RBC 3.50 m/cumm (4.00-5.20) L 06/17/19 06:23 Hgb 10.6 g/dL (12.0-15.5) L 06/17/19 06:23 Hct 33.8 % (36.0-46.0) L 06/17/19 06:23 MCV 96.6 fL (80-95) H 06/17/19 06:23 MCH 30.3 pg (27.0-33.0) 06/17/19 06:23 MCHC 31.4 g/dL (32.0-36.0) L 06/17/19 06:23 RDW 16.6 % (11.7-14.6) H 06/17/19 06:23 Plt Count 215 x1000/uL (130-400) 06/17/19 06:23 MPV 9.7 fL (8.0-11.0) 06/17/19 06:23 Immature Gran % See Differential 06/17/19 06:23 Neutrophils % 51.0 06/17/19 06:23 Band Neutrophils % 1.0 % 06/17/19 06:23 Lymphocytes % 30.0 06/17/19 06:23 Monocytes % 10.0 06/17/19 06:23 Eosinophils % 7.0 06/17/19 06:23 Basophils % 0.0 06/17/19 06:23 Metamyelocytes % 1.0 % 06/17/19 06:23 Absolute Neutrophils 2.12 k/cumm (1.2-6.7) 06/17/19 06:23 Absolute Lymphocytes 1.22 k/cumm (1.2-3.4) 06/17/19 06:23 Absolute Monocytes 0.41 k/cumm (0.11-0.7) 06/17/19 06:23 Absolute Eosinophils 0.28 k/cumm (0.0-0.7) 06/17/19 06:23 Absolute Basophils 0.00 k/cumm (0.0-0.2) 06/17/19 06:23 Differential Comment Manual differential 06/17/19 06:23 RBC Morphology Normal 06/17/19 06:23 PT 9.6 sec (9.3-11.0) 06/10/19 20:10 INR 1.0 (0.9-1.1) 06/10/19 20:10 APTT 22.1 sec (21.0-31.4) 06/10/19 20:10 D-Dimer 1556 ng/mlFEU (<500) H 06/10/19 20:10 Sodium 143 mmol/L (136-145) 06/17/19 06:23 Potassium 3.6 mmol/L (3.5-5.1) 06/17/19 06:23 Chloride 107 mmol/L (98-107) 06/17/19 06:23 Carbon Dioxide 28.2 mmol/L (21.0-32.0) 06/17/19 06:23 Anion Gap 7.8 mmol/L (3-11) 06/17/19 06:23 BUN 15 mg/dL (7-18) 06/17/19 06:23 Creatinine 0.83 mg/dL (0.55-1.02) 06/17/19 06:23 Estimated GFR/1.73 m2 >= 60.00 (mL/min/1.73m2) 06/17/19 06:23 Glucose 105 mg/dL (70-100) H 06/17/19 06:23 Lactate 1.1 mmol/L (0.6-1.4) 06/11/19 11:58 Calcium 9.5 mg/dL (8.5-10.1) 06/17/19 06:23 Magnesium 2.0 mg/dL (1.8-2.4) 06/17/19 06:23 Total Bilirubin 1.1 mg/dL (0.2-1.0) H 06/11/19 06:50 AST 24 U/L (15-37) 06/11/19 06:50 ALT 26 U/L (14-59) 06/11/19 06:50 Alkaline Phosphatase 107 U/L (46-116) 06/11/19 06:50 Troponin I < 0.05 ng/mL (0.00-0.06) 06/11/19 06:50 Total Protein 6.3 g/dL (6.4-8.2) L 06/11/19 06:50 Albumin 3.2 g/dL (3.4-5.0) L 06/11/19 06:50 Lipase 58 U/L (73-393) L 06/10/19 20:10 Procalcitonin 0.3 ng/mL 06/17/19 06:23 Urine Color Yellow (Yellow) 06/10/19 23:00 Urine Clarity Clear (Clear) 06/10/19 23:00 Urine pH 5.5 (5-8) 06/10/19 23:00 Ur Specific [place] 1.025 (1.005-1.025) 06/10/19 23:00 Urine Protein Negative mg/dL (Negative) 06/10/19 23:00 Urine Ketones 80 mg/dL (Negative) H 06/10/19 23:00 Urine Blood Negative (Negative) 06/10/19 23:00 Urine Nitrite Negative (Negative) 06/10/19 23:00 Urine Bilirubin Negative (Negative) 06/10/19 23:00 Urine Urobilinogen 0.2 EU/dL (Up TO 0.2) 06/10/19 23:00 Ur Leukocyte Esterase Negative (Negative) 06/10/19 23:00 Urine Glucose Negative mg/dL (Negative) 06/10/19 23:00 Vancomycin Trough Cancelled 06/16/19 13:00 Legionella Source Cancelled 06/11/19 05:45 Legionella Reprt Status Cancelled 06/11/19 05:45 Legionella Final Result Cancelled 06/11/19 05:45
[2019-06-17] MEDS: Ibuprofen 600 MG TAB PO ×2 (12:08→20:38)
--- NOTE | 2019-06-17 12:58 | PDOC.CMPRO ---
Care Management Progress Note S/O: Julia was up in her recliner and enjoying lunch. Smiling and talkative. PT Evaluation note 06/15 stated she was in an assisted living place. Clarified with Julia and she is still in her own home on [address] in [place] where she has lived for the past 43 years. She did go to the [facility] for short term rehab but then returned home with her private caregiver and services through [facility] and [facility]. Armida, her shelter private caregiver, comes in several times a week to help with microbiology teacher, shopping and the animals. Leticia would prefer to go home and receive PT/OT services through [facility]. Stated that she would not consider going to the [facility] again but in an extreme situation she would consider a referral to [facility]. Feels that she will be better off in her own home even though the PT evaluation recommends SNF placement. A: Leticia is a 74 year old female admitted to [facility] on 06/10/2019 due to Sepsis, Pneumonia, AMBER. P: Anticipate Leticia will return home when medically cleared with services- RN, PT, OT. Need to clarify if this will be a resume or new services. Need to verify that still has this client on the active patient list. CM to coordinate transportation via [facility] private vehicle. CM will also contact Leticia Huffman's caregiver (c:[phone]) day of discharge to inform her that she will be returning home.
[2019-06-17] MEDS: Fluticasone NASAL SPRAY 16 GM BTL NS (13:30)
[2019-06-17] MEDS: Enoxaparin 40 MG/0.4 ML SYR SC (13:31)
--- NOTE | 2019-06-17 13:32 | PT.INTREAT ---
Date of service: 06/17/19 PT Notes Inpatient Physical Therapy Treatment Note [facility] Date: 06/17/19 SUBJECTIVE: Leticia states that she has been struggling with XIONG all day. OBJECTIVE: [] BED MOBILITY/TRANSFERS Sit-stand: S Stand-sit: S GAIT Assistive Device: SPC Weight bearing: full Assist: SBA Distance: 300' ASSESSMENT: tolerated session well despite c/o XIONG. No LOB noted with ambulation. She transferred in safe manner. PLAN: continued towards established goals. TREATMENT CODE/TIME: 20 min. [id number]
[2019-06-17] MEDS: Sodium Chloride-Nasal SPRAY-ADULT 44 ML BTL NS (17:56)
[2019-06-17] MEDS: Lidocaine Patch Removal 1 EACH TD (20:30)
[2019-06-17] MEDS: LORazepam 1 MG TAB 3 MG PO (20:38)
[2019-06-18] VITALS (7 sets, daily range): BP systolic 133–169; BP diastolic 78–97; PULSE 84–102; RESP 16–18; TEMP 36.5–37; O2SAT 93–98
[2019-06-18] MEDS: CEFEPIME 2 GM in Normal Saline 100 ML IVPB ×2 (01:50→15:51)
[2019-06-18] MEDS: Refresh PLUS Eye Drops 0.4ml 1 EACH OU ×2 (01:51→15:51)
[2019-06-18] MEDS: Normal Saline Flush 10 ML SYR IVP ×2 (01:52→23:46)
[2019-06-18] MEDS: Folic Acid 1 MG TAB PO (07:28)
[2019-06-18] MEDS: Metoprolol 50 MG TAB PO ×2 (07:28→20:31)
[2019-06-18] MEDS: Venlafaxine 37.5 MG CAPCR PO (07:28)
[2019-06-18] MEDS: Ibuprofen 600 MG TAB PO ×2 (07:28→20:31)
[2019-06-18] MEDS: metroNIDAZOLE 500 MG TAB PO ×3 (07:28→23:46)
[2019-06-18] MEDS: Multivitamin w/Minerals TAB 1 TAB PO (07:28)
[2019-06-18] MEDS: Thiamine 100 MG TAB PO (07:28)
[2019-06-18] MEDS: amLODIPine 10 MG TAB PO (07:29)
[2019-06-18] MEDS: Venlafaxine 150 MG CAPCR PO (07:29)
[2019-06-18] MEDS: guaiFENesin 600 MG TABCR PO ×2 (07:29→20:31)
[2019-06-18] MEDS: Pantoprazole 40 MG TABCR PO (07:29)
[2019-06-18] MEDS: Benzonatate 200 MG CAP PO ×3 (07:29→20:31)
[2019-06-18] MEDS: Gabapentin 300 MG CAP PO ×2 (07:29→20:31)
[2019-06-18] MEDS: Lidocaine 5% Patch 1 PATCH TP (07:29)
[2019-06-18] MEDS: Fluticasone NASAL SPRAY 16 GM BTL NS (07:31)
[2019-06-18] MEDS: hydroCHLOROthiazide 12.5 MG TAB PO (07:34)
[2019-06-18 07:36] LABS: Abs Immature Grans 0.12 k/cumm (0.0-0.09); Absolute Basophil Count 0.01 k/cumm (0.0-0.2); Absolute Eosinophil Count 0.21 k/cumm (0.0-0.7); Absolute Lymphocyte Count 0.98 k/cumm (1.2-3.4); Absolute Monocyte Count 0.78 k/cumm (0.11-0.7); Absolute Neutrophil Count 1.73 k/cumm (1.2-6.7); Basophils % 0.3; Eosinophils % 5.5; HCT 32.5 % (36.0-46.0); HGB 10.2 g/dL (12.0-15.5); Immature Grans % 3.1; Lymphocytes % 25.6; Mean Corp. HGB Concentration 31.4 g/dL (32.0-36.0); Mean Corpuscular Hemoglobin 30.1 pg (27.0-33.0); Mean Corpuscular Volume 95.9 fL (80-95); Mean Platelet Volume 9.4 fL (8.0-11.0); Monocytes % 20.4; Neutrophils % 45.1; Platelet Count 279 x1000/uL (130-400); RBC 3.39 m/cumm (4.00-5.20); RBC Distribution Width 16.2 % (11.7-14.6); White Blood Cell Count 3.83 k/cumm (4.4-10.8)
[2019-06-18 07:48] LABS: Anion Gap 6.9 mmol/L (3-11); BUN 14 mg/dL (7-18); CO2 28.1 mmol/L (21.0-32.0); Calcium 9.8 mg/dL (8.5-10.1); Chloride 104 mmol/L (98-107); Glucose 111 mg/dL (70-100); Magnesium 1.8 mg/dL (1.8-2.4); Sodium 139 mmol/L (136-145)
[2019-06-18 08:47] LABS: Procalcitonin 0.3 ng/mL
[2019-06-18] MEDS: Magnesium Oxide 400 MG TAB PO ×2 (08:55→20:39)
--- NOTE | 2019-06-18 12:51 | PT.INTREAT ---
Date of service: 06/18/19 Time of Service: 11:18 PT Notes Inpatient Physical Therapy Treatment Note [facility] Date: 06/18/2019 PRECAUTIONS: Fall. Standard. Activity as tolerated. SUBJECTIVE: Patient is agreeable to PT session. She very much is looking forward to going home and returning to having back her previous supports. She was talking about how recently she had a negative experience at a SNF she went to and expressed how she would not want to have to experience the same in the future. She denied headache, dizziness, chest pain throughout PT session. OBJECTIVE: Patient seen sitting on recliner upon arrival of this PT and student PT. IV in R UE. Bilateral TEDS on. PAIN: 0/10 BED MOBILITY/TRANSFERS Sit-stand: I Stand-sit: I Bed-Chair: I Chair-bed: I GAIT Assistive Device: FWW Weight bearing: FWB Assist: S Distance: 120' + 150' feet Deviation: Increasing violeta, one episode of trunk swaying to L but patient was able to self-correct THEREX: Patient tolerated seated LAQs, seated marches, and ankle circles x 10 reps. ASSESSMENT: Patient continues to require skilled PT services in order to progress balance skills, mobility level, activity tolerance, and safety awareness PLAN: Continue per PT POC. Patient will benefit from discharging to an assisted living facility or to home with previous caregiver and HH PT/OT/SW in place. TREATMENT CODE/TIME: 60146 x 21 minutes beginning at 11:18 AM.
[2019-06-18] MEDS: Enoxaparin 40 MG/0.4 ML SYR SC (13:47)
[2019-06-18 14:21] LABS: Streptococcus Pneumoniae Ag, U Negative (Negative)
--- NOTE | 2019-06-18 15:29 | PT.INTREAT ---
Date of service: 06/18/19 Time of Service: 15:30 PT Notes Inpatient Physical Therapy Treatment Note [facility] Date: 06/18/19 PRECAUTIONS: Fall SUBJECTIVE: Leticia is pleasant and is agreeable to participating in PT. She states that she is feeling pretty good at this afternoon, she is hopeful to be returning to home soon. OBJECTIVE: PAIN: No c/o pain BED MOBILITY/TRANSFERS Sit-stand: I Stand-sit: I GAIT Assistive Device: SPC Weight bearing: Full Assist: I Distance: 500' + TOILETING: Patient toileted independently ASSESSMENT: Patient tolerated session well, without complaint. She was able to tolerate a progression in gait distance with SPC support. PLAN: Continue with PT's POC TREATMENT CODE/TIME: 25 minutes; 52735 x2
--- NOTE | 2019-06-18 17:21 | CMPROGNOTE_ITS ---
- If Service Date Differs Date of service: 06/18/19 Time of Service: 17:21 Care Management Progress Note S/O: Leticia was sitting in her chair when CM met with her. She was pleasant and engaged in conversation. She reported that she is feeling ok, but that she was started more antibiotics. She stated that she missed her animals at home, and she is eager to get back to them. She also stated that she would like to go home, and not to a facility. CM will continue to follow. A: Leticia is a 74 year old female admitted to [facility] on 06/10/2019 due to Sepsis, Pneumonia, AMBER. P: Anticipate Leticia will return home when medically cleared with resumption of services- RN, PT, OT. Need to verify that still has this client on the active patient list. CM to coordinate transportation via [facility] private vehicle. CM will also contact Leticia Huffman's caregiver (c:[phone]) day of discharge to inform her that she will be returning home.
--- NOTE | 2019-06-18 18:29 | PGE_ITS ---
Date of Service Date of service: 06/18/19 Time of Service: 17:30 Assessment and Plan Assessment and plan (1) Sepsis: Status: Acute Assessment and plan: Due to HCAP vs aspiration pneumonia, present on admission, likely complicated by atelectasis due to L rib fx. Procalcitonin increased yet again today 48 hours after d/c'ing vancomycin - will reintroduce today. Continue cefepime and metronidazole (day 8), vibrapep, incentive spirometry. Recheck procalcitonin in am. Qualifiers: Sepsis type: sepsis due to unspecified organism Sepsis acute organ dysfunction status: with acute organ dysfunction Severe sepsis acute organ dysfunction type: acute renal failure Acute renal failure type: unspecified (2) Acute kidney injury (nontraumatic): Status: Acute Assessment and plan: Resolved. Not clinically dehydrated at this point - off IVF. (3) Renal mass: Status: Suspected Assessment and plan: Will need outpatient contrast-enhanced CT or renal protocol MRI (4) Alcohol abuse: Status: Chronic Assessment and plan: Not actively withdrawing. Continue monitoring on CIWA. Continue thiamine, MVI. (5) Hypertension: Status: Chronic Assessment and plan: Continue CCB and BB therapy; reintroduce HCTZ. (6) GERD (gastroesophageal reflux disease): Status: Chronic Assessment and plan: GERD with hx of EtOH Gastritis. Continue PPI therapy. (7) Photophobia of right eye: Status: Acute Assessment and plan: [facility] records reviewed. The patient had several things happen to her R eye, including a corneal ulcer, bacterial keratitis with strep pneumo, entropion/hypopion. She had completed antibiotic and steroid eyedrops and is recommended to continue artificial tears prn. Unfortunately, I do not know that she knows to ask for them of the nursing staff so I have now scheduled them. We do not have any lubricant eye gels that I can find in our formulary, but this could be something that the patient could use at night as well. Continue the eye patch for comfort. (8) Atelectasis of left lung: Status: Acute Assessment and plan: Continue IS and vibrapep (9) Arthralgia of temporomandibular joint: Status: Acute Assessment and plan: While the patient states her pain is new, per chart review, this diagnosis actually dates back as far as 2014. Seems to be improving with ibuprofen, which we will cautiously continue. (10) Generalized weakness: Status: Resolved Assessment and plan: Continue to work with PT. No longer requiring SNF, per PT. (11) Discharge planning issues: Status: Acute Assessment and plan: home with print machine operator, home health nursing, PT/OT when stable. DNR/DNI. (12) DVT prophylaxis: Status: Acute Assessment and plan: TEDs, SCD's, SC lovenox Subjective Subjective Interval history since last seen: Breathing unchanged. Continues to have TMJ discomfort B, c/o R eye tearing, requests eyedrops. Denies dizziness unless she gets up really fast to go to the bathroom. Denies CP, worsening SOB, n/v. Exam Narrative Exam Narrative: General: very pleasant elderly female, A&Ox3, not wearing eyepatch today HEENT: EOMI, MMM, R eye with some tearing Heart: RRR, ?quiet KIRTI Lungs: Crackles at B bases GI: abdomen is soft, nontender, nondistended Extremities: No edema BLE's, +1 pedal pulses B, wearing TEDs. Objective Objective Clinical Data: Abnormal lab results 06/18/19 06/18/19 Range/Units 06:27 06:27 WBC 3.83 L (4.4-10.8) k/cumm RBC 3.39 L (4.00-5.20) m/cumm Hgb 10.2 L (12.0-15.5) g/dL Hct 32.5 L (36.0-46.0) % MCV 95.9 H (80-95) fL MCHC 31.4 L (32.0-36.0) g/dL RDW 16.2 H (11.7-14.6) % Absolute Lymphocytes 0.98 L (1.2-3.4) k/cumm Absolute Monocytes 0.78 H (0.11-0.7) k/cumm Glucose 111 H (70-100) mg/dL Vital Signs Temperature 36.7 C 06/18/19 16:25 Temperature Source Tympanic 06/18/19 16:25 Pulse 94 H 06/18/19 16:25 Pulse Rhythm Irregular 06/18/19 07:40 Pulse 82 06/13/19 16:04 Respiratory Rate 18 06/18/19 16:25 Respiratory Effort Non-Labored 06/18/19 17:47 Respiratory Depth Normal 06/18/19 17:47 Respiratory Pattern Normal 06/18/19 17:47 Blood Pressure 135/83 06/18/19 16:25 Blood Pressure Mean 82 06/13/19 16:04 Blood Pressure Position Sitting 06/13/19 12:05 Pulse Oximetry 95 06/18/19 16:25 Oxygen Delivery Method Room Air 06/18/19 16:25 Oxygen Flow Rate 0 06/18/19 16:25 Pain Level 5 06/18/19 16:25 Comment 06/18/19 07:10 Intake & Output 06/17/19 06/18/19 06/18/19 23:59 11:59 23:59 Intake Total 680 / 2590 700 / 1960 1260 / 1960 Output Total 1100 / 1400 300 / 300 Balance -420 / 1190 400 / 1660 1260 / 1660 Weight 65.2 kg Intake: IV 10 / 310 300 / 310 Oral 680 / 2470 690 / 1650 960 / 1650 Output: Urine 1100 / 1400 300 / 300 Other: Urine Color Yellow Yellow Urine Appearance Clear Clear Urine Odor Strong Normal Stool Size Moderate Voiding Methods Toilet Diaper Incontinent Laboratory Results WBC 3.83 k/cumm (4.4-10.8) L 06/18/19 06:27 RBC 3.39 m/cumm (4.00-5.20) L 06/18/19 06:27 Hgb 10.2 g/dL (12.0-15.5) L 06/18/19 06:27 Hct 32.5 % (36.0-46.0) L 06/18/19 06:27 MCV 95.9 fL (80-95) H 06/18/19 06:27 MCH 30.1 pg (27.0-33.0) 06/18/19 06:27 MCHC 31.4 g/dL (32.0-36.0) L 06/18/19 06:27 RDW 16.2 % (11.7-14.6) H 06/18/19 06:27 Plt Count 279 x1000/uL (130-400) 06/18/19 06:27 MPV 9.4 fL (8.0-11.0) 06/18/19 06:27 Immature Gran % 3.1 06/18/19 06:27 Neutrophils % 45.1 06/18/19 06:27 Band Neutrophils % 1.0 % 06/17/19 06:23 Lymphocytes % 25.6 06/18/19 06:27 Monocytes % 20.4 06/18/19 06:27 Eosinophils % 5.5 06/18/19 06:27 Basophils % 0.3 06/18/19 06:27 Metamyelocytes % 1.0 % 06/17/19 06:23 Absolute Neutrophils 1.73 k/cumm (1.2-6.7) 06/18/19 06:27 Absolute Lymphocytes 0.98 k/cumm (1.2-3.4) L 06/18/19 06:27 Absolute Monocytes 0.78 k/cumm (0.11-0.7) H 06/18/19 06:27 Absolute Eosinophils 0.21 k/cumm (0.0-0.7) 06/18/19 06:27 Absolute Basophils 0.01 k/cumm (0.0-0.2) 06/18/19 06:27 Differential Comment Manual differential 06/17/19 06:23 RBC Morphology Normal 06/17/19 06:23 PT 9.6 sec (9.3-11.0) 06/10/19 20:10 INR 1.0 (0.9-1.1) 06/10/19 20:10 APTT 22.1 sec (21.0-31.4) 06/10/19 20:10 D-Dimer 1556 ng/mlFEU (<500) H 06/10/19 20:10 Sodium 139 mmol/L (136-145) 06/18/19 06:27 Potassium 4.0 mmol/L (3.5-5.1) 06/18/19 06:27 Chloride 104 mmol/L (98-107) 06/18/19 06:27 Carbon Dioxide 28.1 mmol/L (21.0-32.0) 06/18/19 06:27 Anion Gap 6.9 mmol/L (3-11) 06/18/19 06:27 BUN 14 mg/dL (7-18) 06/18/19 06:27 Creatinine 0.90 mg/dL (0.55-1.02) 06/18/19 06:27 Estimated GFR/1.73 m2 >= 60.00 (mL/min/1.73m2) 06/18/19 06:27 Glucose 111 mg/dL (70-100) H 06/18/19 06:27 Lactate 1.1 mmol/L (0.6-1.4) 06/11/19 11:58 Calcium 9.8 mg/dL (8.5-10.1) 06/18/19 06:27 Magnesium 1.8 mg/dL (1.8-2.4) 06/18/19 06:27 Total Bilirubin 1.1 mg/dL (0.2-1.0) H 06/11/19 06:50 AST 24 U/L (15-37) 06/11/19 06:50 ALT 26 U/L (14-59) 06/11/19 06:50 Alkaline Phosphatase 107 U/L (46-116) 06/11/19 06:50 Troponin I < 0.05 ng/mL (0.00-0.06) 06/11/19 06:50 Total Protein 6.3 g/dL (6.4-8.2) L 06/11/19 06:50 Albumin 3.2 g/dL (3.4-5.0) L 06/11/19 06:50 Lipase 58 U/L (73-393) L 06/10/19 20:10 Procalcitonin 0.3 ng/mL 06/18/19 06:27 Urine Color Yellow (Yellow) 06/10/19 23:00 Urine Clarity Clear (Clear) 06/10/19 23:00 Urine pH 5.5 (5-8) 06/10/19 23:00 Ur Specific [place] 1.025 (1.005-1.025) 06/10/19 23:00 Urine Protein Negative mg/dL (Negative) 06/10/19 23:00 Urine Ketones 80 mg/dL (Negative) H 06/10/19 23:00 Urine Blood Negative (Negative) 06/10/19 23:00 Urine Nitrite Negative (Negative) 06/10/19 23:00 Urine Bilirubin Negative (Negative) 06/10/19 23:00 Urine Urobilinogen 0.2 EU/dL (Up TO 0.2) 06/10/19 23:00 Ur Leukocyte Esterase Negative (Negative) 06/10/19 23:00 Urine Glucose Negative mg/dL (Negative) 06/10/19 23:00 Vancomycin Trough Cancelled 06/16/19 13:00 Legionella Source Cancelled 06/11/19 05:45 Legionella Reprt Status Cancelled 06/11/19 05:45 Legionella Final Result Cancelled 06/11/19 05:45 Ur Strep pneumoniae Ag Negative (Negative) 06/15/19 10:15
[2019-06-18] MEDS: Refresh PLUS Eye Drops 0.4ml OU ×2 (20:34→23:46)
[2019-06-18] MEDS: LORazepam 1 MG TAB 3 MG PO (20:39)
[2019-06-18] MEDS: Lidocaine Patch Removal 1 EACH TD (20:45)
[2019-06-18] MEDS: VANCOMYCIN 750 MG in Normal Saline 250 ML 250 MG IV (23:46)
[2019-06-19] MEDS: Normal Saline Flush 10 ML SYR IVP ×2 (02:04→20:39)
[2019-06-19] MEDS: CEFEPIME 2 GM in Normal Saline 100 ML IVPB ×2 (02:04→16:22)
[2019-06-19 03:30] VITALS: BP 135/89; PULSE 95; RESP 17; TEMP 36.9; O2SAT 98
[2019-06-19 07:00] VITALS: BP 163/78; PULSE 96; RESP 14; TEMP 36.6; O2SAT 95
[2019-06-19 07:36] LABS: Abs Immature Grans 0.08 k/cumm (0.0-0.09); Absolute Basophil Count 0.01 k/cumm (0.0-0.2); Absolute Eosinophil Count 0.14 k/cumm (0.0-0.7); Absolute Lymphocyte Count 0.77 k/cumm (1.2-3.4); Absolute Monocyte Count 0.81 k/cumm (0.11-0.7); Absolute Neutrophil Count 2.78 k/cumm (1.2-6.7); Basophils % 0.2; Eosinophils % 3.1; HCT 30.8 % (36.0-46.0); HGB 9.6 g/dL (12.0-15.5); Immature Grans % 1.7; Lymphocytes % 16.8; Mean Corp. HGB Concentration 31.2 g/dL (32.0-36.0); Mean Corpuscular Hemoglobin 29.7 pg (27.0-33.0); Mean Corpuscular Volume 95.4 fL (80-95); Mean Platelet Volume 8.5 fL (8.0-11.0); Monocytes % 17.6; Neutrophils % 60.6; Platelet Count 288 x1000/uL (130-400); RBC 3.23 m/cumm (4.00-5.20); RBC Distribution Width 16.3 % (11.7-14.6); White Blood Cell Count 4.59 k/cumm (4.4-10.8)
[2019-06-19 07:51] LABS: Anion Gap 9.7 mmol/L (3-11); BUN 18 mg/dL (7-18); CO2 28.3 mmol/L (21.0-32.0); CREATININE 0.96 mg/dL (0.55-1.02); Calcium 9.4 mg/dL (8.5-10.1); Chloride 106 mmol/L (98-107); Estimated GFR 56.97 (mL/min/1.73m2); Glucose 119 mg/dL (70-100); Magnesium 1.7 mg/dL (1.8-2.4); Potassium 3.7 mmol/L (3.5-5.1); Sodium 144 mmol/L (136-145)
[2019-06-19] MEDS: Thiamine 100 MG TAB PO (08:16)
[2019-06-19] MEDS: Benzonatate 200 MG CAP PO ×3 (08:16→20:40)
[2019-06-19] MEDS: Gabapentin 300 MG CAP PO ×2 (08:16→20:40)
[2019-06-19] MEDS: hydroCHLOROthiazide 12.5 MG TAB PO (08:16)
[2019-06-19] MEDS: Venlafaxine 37.5 MG CAPCR PO (08:17)
[2019-06-19] MEDS: Metoprolol 50 MG TAB PO ×2 (08:17→20:40)
[2019-06-19] MEDS: amLODIPine 10 MG TAB PO (08:17)
[2019-06-19] MEDS: Multivitamin w/Minerals TAB 1 TAB PO (08:17)
[2019-06-19] MEDS: guaiFENesin 600 MG TABCR PO ×2 (08:17→20:40)
[2019-06-19] MEDS: Venlafaxine 150 MG CAPCR PO (08:17)
[2019-06-19] MEDS: Folic Acid 1 MG TAB PO (08:17)
[2019-06-19] MEDS: metroNIDAZOLE 500 MG TAB PO ×2 (08:17→16:22)
[2019-06-19] MEDS: Pantoprazole 40 MG TABCR PO (08:18)
[2019-06-19] MEDS: Fluticasone NASAL SPRAY 16 GM BTL NS (08:18)
[2019-06-19] MEDS: Lidocaine 5% Patch 1 PATCH TP (08:18)
[2019-06-19] MEDS: Refresh PLUS Eye Drops 0.4ml OU ×5 (08:32→23:41)
[2019-06-19 09:11] LABS: Procalcitonin 0.2 ng/mL
[2019-06-19] MEDS: Magnesium Oxide 400 MG TAB PO ×2 (10:24→20:40)
[2019-06-19 11:00] VITALS: BP 156/72; PULSE 87; RESP 14; TEMP 36.5; O2SAT 95
[2019-06-19] MEDS: Ibuprofen 600 MG TAB PO ×2 (11:40→17:20)
[2019-06-19] MEDS: VANCOMYCIN 750 MG in Normal Saline 250 ML 250 MG IV (11:42)
[2019-06-19] MEDS: MAGNESIUM SULFATE 2 GM/50 ML BAG IVPB (13:31)
[2019-06-19] MEDS: Enoxaparin 40 MG/0.4 ML SYR SC (14:46)
--- NOTE | 2019-06-19 15:56 | DI.RAD_ITS ---
EXAM: XR CHEST 2V PA LATERAL INDICATION: follow up pneumonia. COMPARISON: XR CHEST 2V PA LATERAL from 06/16/2019 TECHNIQUE: 2D digital imaging was performed. FINDINGS: The heart is mildly enlarged and the aorta is tortuous, unchanged. There are old bilateral rib frac tures. The lungs are better inflated on today's exam. No infiltrate or effusion is seen. There are no thoracic compression fractures. IMPRESSION: No acute abnormality.
--- NOTE | 2019-06-19 16:08 | CMPROGNOTE_ITS ---
- If Service Date Differs Date of service: 06/19/19 Time of Service: 16:08 Care Management Progress Note S/O: Leticia was sitting in her chair when CM met with her. She was in good spirits and was engaged in conversation. She stated that the MD told her she would be ready to go home by Tuesday. She stated that she isn't complaining about staying because the food is so good. She also expressed concern about not having appropriate clothes to go home in. CM asked if Armida, her caregiver, or her sister would bring her clothes before Tuesday. She responded saying she would call and ask. CM offered support with this task if needed, which she declined. CM will continue to follow. A: Leticia is a 74 year old female admitted to [facility] on 06/10/2019 due to Sepsis, Pneumonia, AMBER. P: Anticipate Leticia will return home when medically cleared with resumption of services- RN, PT, OT. Need to verify that still has this client on the active patient list. CM to coordinate transportation via [facility] private vehicle. CM will also contact Leticia Huffman's caregiver (c:[phone]) day of discharge to inform her that she will be returning home.
--- NOTE | 2019-06-19 16:13 | PGE_ITS ---
Date of Service Date of service: 06/19/19 Time of Service: 16:13 Assessment and Plan Assessment and plan (1) Sepsis: Status: Acute Assessment and plan: Due to HCAP vs aspiration pneumonia, present on admission, likely complicated by atelectasis due to L rib fx. Procalcitonin better since restarting vancomycin yesterday. We need to find a good oral regimen for discharge home - seeking ID consult - awaiting call back. Continue cefepime and metronidazole (day 9), vibrapep, incentive spirometry. Recheck procalcitonin in am. Qualifiers: Sepsis type: sepsis due to unspecified organism Sepsis acute organ dysfunction status: with acute organ dysfunction Severe sepsis acute organ dysfunction type: acute renal failure Acute renal failure type: unspecified (2) Acute kidney injury (nontraumatic): Status: Acute Assessment and plan: Resolved. Not clinically dehydrated at this point - off IVF. (3) Renal mass: Status: Suspected Assessment and plan: Will need outpatient contrast-enhanced CT or renal protocol MRI (4) Alcohol abuse: Status: Chronic Assessment and plan: Not actively withdrawing. Continue monitoring on CIWA. Continue thiamine, MVI. (5) Hypertension: Status: Chronic Assessment and plan: Continue CCB and BB therapy, HCTZ. Consider reintroducing ARB tomorrow (6) GERD (gastroesophageal reflux disease): Status: Chronic Assessment and plan: GERD with hx of EtOH Gastritis. Continue PPI therapy. (7) Photophobia of right eye: Status: Acute Assessment and plan: [facility] records reviewed. The patient had several things happen to her R eye, including a corneal ulcer, bacterial keratitis with strep pneumo, entropion/hypopion. Continue artificial tears prn and eye patch for comfort. Follow up with [facility] ophthalmology as outpatient. (8) Atelectasis of left lung: Status: Acute Assessment and plan: Continue IS and vibrapep (9) Arthralgia of temporomandibular joint: Status: Acute Assessment and plan: Continue prn ibuprofen. (10) Generalized weakness: Status: Resolved Assessment and plan: Continue to work with PT. No longer requiring SNF, per PT. (11) Discharge planning issues: Status: Acute Assessment and plan: home with speech language pathologist assistant, home health nursing, PT/OT when stable - hoping for tomorrow. DNR/DNI. (12) DVT prophylaxis: Status: Acute Assessment and plan: TEDs, SCD's, SC lovenox Subjective Subjective Interval history since last seen: I have placed a call with [facility] for ID consult for help with antibiotic guidance - awaiting call back at this time. THe patient states that she does not have a headache today, but apparently she had it yesterday. She never reported it to me. Reports 1 bout of diarrhea this morning, none since. Denies dizziness, chest pain, shortness of breath, nausea. Still has a cough - she is not sure what the color of her sputum is. She would like to go home. Exam Narrative Exam Narrative: General: very pleasant elderly female, A&Ox3, sitting comfortably in a chair, no shortness of breath observed HEENT: EOMI, MMM, R eye with some tearing Heart: RRR, ?quiet KIRTI Lungs: Crackles at B bases, slightly better today GI: abdomen is soft, nontender, nondistended Extremities: No edema BLE's, +1 pedal pulses B, wearing TEDs. Objective Objective Clinical Data: Abnormal lab results 06/19/19 06/19/19 Range/Units 07:24 07:24 RBC 3.23 L (4.00-5.20) m/cumm Hgb 9.6 L (12.0-15.5) g/dL Hct 30.8 L (36.0-46.0) % MCV 95.4 H (80-95) fL MCHC 31.2 L (32.0-36.0) g/dL RDW 16.3 H (11.7-14.6) % Absolute Lymphocytes 0.77 L (1.2-3.4) k/cumm Absolute Monocytes 0.81 H (0.11-0.7) k/cumm Glucose 119 H (70-100) mg/dL Magnesium 1.7 L (1.8-2.4) mg/dL Vital Signs Temperature 36.5 C 06/19/19 11:00 Temperature Source Tympanic 06/19/19 11:00 Pulse 87 06/19/19 11:00 Pulse Rhythm Regular 06/19/19 15:07 Pulse 82 06/13/19 16:04 Respiratory Rate 14 06/19/19 11:00 Respiratory Effort Non-Labored 06/19/19 15:07 Respiratory Depth Normal 06/19/19 15:07 Respiratory Pattern Normal 06/19/19 15:07 Blood Pressure 156/72 H 06/19/19 11:00 Blood Pressure Mean 82 06/13/19 16:04 Blood Pressure Position Sitting 06/13/19 12:05 Pulse Oximetry 95 06/19/19 11:00 Oxygen Delivery Method Room Air 06/19/19 11:00 Oxygen Flow Rate 0 06/19/19 11:00 Pain Level 4 06/19/19 11:40 Comment 06/19/19 07:00 Intake & Output 06/18/19 06/19/19 06/19/19 23:59 11:59 23:59 Intake Total 1260 / 1960 350 / 600 250 / 600 Output Total 500 / 500 Balance 1260 / 1660 -150 / 100 250 / 100 Weight 63.9 kg Intake: IV 300 / 310 350 / 600 250 / 600 Oral 960 / 1650 Output: Urine 500 / 500 Other: Urine Color Yellow Yellow Urine Appearance Clear Clear Clear Comment Voids to the toilet Grossly inc. Voiding Methods Toilet Toilet Toilet Laboratory Results WBC 4.59 k/cumm (4.4-10.8) 06/19/19 07:24 RBC 3.23 m/cumm (4.00-5.20) L 06/19/19 07:24 Hgb 9.6 g/dL (12.0-15.5) L 06/19/19 07:24 Hct 30.8 % (36.0-46.0) L 06/19/19 07:24 MCV 95.4 fL (80-95) H 06/19/19 07:24 MCH 29.7 pg (27.0-33.0) 06/19/19 07:24 MCHC 31.2 g/dL (32.0-36.0) L 06/19/19 07:24 RDW 16.3 % (11.7-14.6) H 06/19/19 07:24 Plt Count 288 x1000/uL (130-400) 06/19/19 07:24 MPV 8.5 fL (8.0-11.0) 06/19/19 07:24 Immature Gran % 1.7 06/19/19 07:24 Neutrophils % 60.6 06/19/19 07:24 Band Neutrophils % 1.0 % 06/17/19 06:23 Lymphocytes % 16.8 06/19/19 07:24 Monocytes % 17.6 06/19/19 07:24 Eosinophils % 3.1 06/19/19 07:24 Basophils % 0.2 06/19/19 07:24 Metamyelocytes % 1.0 % 06/17/19 06:23 Absolute Neutrophils 2.78 k/cumm (1.2-6.7) 06/19/19 07:24 Absolute Lymphocytes 0.77 k/cumm (1.2-3.4) L 06/19/19 07:24 Absolute Monocytes 0.81 k/cumm (0.11-0.7) H 06/19/19 07:24 Absolute Eosinophils 0.14 k/cumm (0.0-0.7) 06/19/19 07:24 Absolute Basophils 0.01 k/cumm (0.0-0.2) 06/19/19 07:24 Differential Comment Manual differential 06/17/19 06:23 RBC Morphology Normal 06/17/19 06:23 PT 9.6 sec (9.3-11.0) 06/10/19 20:10 INR 1.0 (0.9-1.1) 06/10/19 20:10 APTT 22.1 sec (21.0-31.4) 06/10/19 20:10 D-Dimer 1556 ng/mlFEU (<500) H 06/10/19 20:10 Sodium 144 mmol/L (136-145) 06/19/19 07:24 Potassium 3.7 mmol/L (3.5-5.1) 06/19/19 07:24 Chloride 106 mmol/L (98-107) 06/19/19 07:24 Carbon Dioxide 28.3 mmol/L (21.0-32.0) 06/19/19 07:24 Anion Gap 9.7 mmol/L (3-11) 06/19/19 07:24 BUN 18 mg/dL (7-18) 06/19/19 07:24 Creatinine 0.96 mg/dL (0.55-1.02) 06/19/19 07:24 Estimated GFR/1.73 m2 56.97 (mL/min/1.73m2) 06/19/19 07:24 Glucose 119 mg/dL (70-100) H 06/19/19 07:24 Lactate 1.1 mmol/L (0.6-1.4) 06/11/19 11:58 Calcium 9.4 mg/dL (8.5-10.1) 06/19/19 07:24 Magnesium 1.7 mg/dL (1.8-2.4) L 06/19/19 07:24 Total Bilirubin 1.1 mg/dL (0.2-1.0) H 06/11/19 06:50 AST 24 U/L (15-37) 06/11/19 06:50 ALT 26 U/L (14-59) 06/11/19 06:50 Alkaline Phosphatase 107 U/L (46-116) 06/11/19 06:50 Troponin I < 0.05 ng/mL (0.00-0.06) 06/11/19 06:50 Total Protein 6.3 g/dL (6.4-8.2) L 06/11/19 06:50 Albumin 3.2 g/dL (3.4-5.0) L 06/11/19 06:50 Lipase 58 U/L (73-393) L 06/10/19 20:10 Procalcitonin 0.2 ng/mL 06/19/19 07:24 Urine Color Yellow (Yellow) 06/10/19 23:00 Urine Clarity Clear (Clear) 06/10/19 23:00 Urine pH 5.5 (5-8) 06/10/19 23:00 Ur Specific [place] 1.025 (1.005-1.025) 06/10/19 23:00 Urine Protein Negative mg/dL (Negative) 06/10/19 23:00 Urine Ketones 80 mg/dL (Negative) H 06/10/19 23:00 Urine Blood Negative (Negative) 06/10/19 23:00 Urine Nitrite Negative (Negative) 06/10/19 23:00 Urine Bilirubin Negative (Negative) 06/10/19 23:00 Urine Urobilinogen 0.2 EU/dL (Up TO 0.2) 06/10/19 23:00 Ur Leukocyte Esterase Negative (Negative) 06/10/19 23:00 Urine Glucose Negative mg/dL (Negative) 06/10/19 23:00 Vancomycin Trough Cancelled 06/16/19 13:00 Legionella Source Cancelled 06/11/19 05:45 Legionella Reprt Status Cancelled 06/11/19 05:45 Legionella Final Result Cancelled 06/11/19 05:45 Ur Strep pneumoniae Ag Negative (Negative) 06/15/19 10:15
--- NOTE | 2019-06-19 16:50 | INDS_ITS ---
Date of service: 06/19/19 PT Notes Inpatient Physical Therapy Evaluation Date: [] Referring Doctor: [] PT Orders: PT CONSULT: [] Precautions: [] Patient Profile/Admitting Diagnosis: [] PMHX: [] Social History/Home Situation: [] Current Functional Limitations: [] Equipment Owned/DME: [] Subjective: [] Objective: [] General Observation: [] Mental Status: [] Pain: [] Vital Signs: [] ROM: Right Upper Extremity: [] Left Upper Extremity: [] Right Lower Extremity: [] Left Lower Extremity: [] Strength: Right Upper Extremity: [] Left Upper Extremity: [] Right Lower Extremity: [] Left Lower Extremity: [] Sensation: [] Bed Mobility/Transfers: [] Gait: [] Balance: [] Static Sitting: [] Dynamic Sitting: [] Static Standing: [] Dynamic Standing: [] Special Tests: Mobility Limitations Standardized Measure [facility] AM-PAC 6 clicks Basic Mobility Inpatient Short Form: Raw Score: [] Standardized Score: [] CMS Score: [] CMS Modifier: [] Informed Consent/Education: Patient instructed in purpose of PT consult and plan of care. Assessment: Patient is a [] year old [] referred to physical therapy services with the diagnosis of []. Patient presents with clinical signs and symptoms consistent with [], as demonstrated by the following impairment level findings: []. Impairments are contributing to the following functional limitations: AMPAC score. Patient is assessed as a [] Low 45000 [] Moderate 22304 [] High 15887 complexity based on the following: History: [] Examination: [] Presentation: [] Decision Making: [] Goals: Goals X1 week 1. Supine-Sit [] 2. Sit-Supine [] 3. Sit-Stand [] 4. Stand-Sit [] 5. Bed-Chair [] 6. Chair-Bed [] 7. Gait [] 8. Stairs [] 9. Independent with home exercise program [] 10. Balance [] Plan of Care/Treatment Plan: 1-2x/day, 7 days/week x 1 week. Plan of care has been reviewed with the SUPERVISOR [employer]ESS ROOM providing the service under Physical Therapy direction. Initiate Physical Therapy intervention for strengthening, bed mobility, transfers, gait, stairs, balance training, use of assistive device. DISCHARGE RECOMMENDATIONS: [] TREATMENT CODE/TIME: []
--- NOTE | 2019-06-19 16:50 | INDS_ITS ---
Date of service: 06/19/19 PT Notes Inpatient Physical Therapy Discharge Summary Dates: 06/19/2019 Dates of Service: 06/15/2019 through 06/18/2019 This is a clinical summary of care provided on the duration of dates listed above. No charge was made in the completion of this documentation. Referring Doctor: Robert Medina MD PT Orders: PT CONSULT: Eval/Treat? Precautions: Fall. Standard. Activity as tolerated. Patient Profile/Admitting Diagnosis: Patient is a 74-year-old female with past medical history significant for ETOH abuse, back pain, depression, and frequent falling who presented to the ED 06/10/2019 with chief complaints of shortness of breath, weakness, productive cough, and pain in the upper abdominal quadrant. Patient is diagnosed with community-acquired pneumonia, sepsis, lactic acidosis, acute kidney injury, and suspected renal mass with past medical history signific ant for ETOH abuse. PMHX: Medical History Alcohol abuse (Chronic) Alcoholic ketosis (Resolved) Allergic rhinitis (Chronic) Anemia (Chronic 12/20/16) Back pain, chronic (Chronic) Cataract (Chronic 11/07/15) Cervical radicular pain (Chronic) Chronic alcoholic gastritis (Chronic 10/12/17) Depression (Chronic) Elev transaminase/LDH (Chronic) Falling (Chronic) Genital herpes simplex (Chronic) GERD (gastroesophageal reflux disease) (Chronic) GI bleed (Chronic 12/20/16) Headache (Chronic) Hyperlipidemia (Chronic) Hypertension (Chronic) Macrocytosis (Chronic 09/26/14) Multiple rib fractures (Acute) Non-cardiac chest pain (Chronic 09/21/16) Osteoarthritis (Chronic) Osteopenia (Chronic) 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) Pleural effusion on left (Acute) Right rib fracture (Resolved) Sciatica (Chronic) Tubular adenoma of colon (Chronic 01/28/17) Urinary incontinence (Chronic) Wernicke encephalopathy (Chronic) Surgical History Bladder Surgery Colonoscopy - MAC (01/28/17) EGD - MAC (12/20/16) Ligation of fallopian tube Repair bladder injury, simple Social History/Home Situation: Leticia reports that she lives in an assisted living facility in [place]. She has a caregiver who comes in daily 5 days per week for 2 hours each time to assist with laundry, minor house chores, and grocery shopping. Patient is independent with MRADLs using a straight cane. She has a walker which she states she does not use often. She receives meals on wheels. She no longer drives. Equipment Owned/DME: FWW, SC, jmaib bars Subjective: NT Objective: General Observation: NT Mental Status: NT Pain: NT ROM: R UE not assessed due to pain and discomfort. Right Lower Extremity: Hip flexion WFL. Hip abduction WFL. Knee flexion WFL. Ankle dorsiflexion WFL. Ankle plantarflexion WFL. Left Lower Extremity: Hip flexion WFL. Hip abduction WFL. Knee flexion WFL. Ankle dorsiflexion WFL. Ankle plantarflexion WFL. Strength (assessed in supine): Right Lower Extremity: Hip flexors 3-/5. Knee extensors 4/5. Ankle dorsiflexors 5/5. Ankle plantarflexors 5/5. Left Lower Extremity: Hip flexors 3-/5. Knee extensors 4/5. Ankle dorsiflexors 5/5. Ankle plantarflexors 5/5. Bed Mobility/Transfers: Rolling independent Supine to sit independent Sit to supine independent Sit to stand independent Stand to sit independent A Bed to chair independent Chair to bed independent Gait: Patient exhibited reciprocal gait for 500 feet using a FWW headed to the therapy gym and using a straight cane going back from the gym to her room with mild breathlessness observed with use of the cane independently. She denies headache, chest pain, and dizziness. Balance: Static Sitting: Normal Dynamic Sitting: Good Static Standing: Good Dynamic Standing: Fair Assessment: Patient is a 74-year-old female presenting with community-acquired pneumonia, sepsis, lactic acidosis, acute kidney injury, and suspected renal mass with past medical history significant for ETOH abuse presenting with impairments and functional limitations listed below requiring skilled PT services at the SNF. Patient continues to present with clinical signs and symptoms consistent with current/admitting diagnoses that have resulted to mobility limitations, gait instability, generalized weakness, and impairment of motor control as demonstrated by the following impairment level findings: 1. Decreased strength to B LE major muscle groups 2. Impaired standing balance Impairments are contributing to the following functional limitations: 1. Inability to safely ambulate without assistive device and physical assistance Goals: Goals X1 week 1. Supine-Sit independent MET 2. Sit-Supine independent MET 3. Sit-Stand independent MET 4. Stand-Sit independent MET 5. Bed-Chair independent MET 6. Chair-Bed independent MET 7. Independent gait on level surface with use of straight cane for at least 300 feet without report of pain nor dyspnea MET 8. Independent stair negotiation while holding onto bilateral rails for at least 5 steps without report of pain nor dyspnea MET 9. Independent with home exercise program MET 10. Good static and dynamic standing balance/tolerance NOT MET DISCHARGE RECOMMENDATIONS: Patient will benefit from home health PT services in order to progress mobility level using least restrictive assistive ambulatory device, assess home safety, identify additional equipment needs, and establish a functional maintenance program that will increase ability of patient to remain at home. TREATMENT CODE/TIME: HI Thank you very much for this referral. Tawana Cruz PT, DPT, CLT [facility]
[2019-06-19 17:02] VITALS: BP 147/84; PULSE 94; RESP 16; TEMP 37; O2SAT 96
[2019-06-19 20:00] VITALS: BP 145/89; PULSE 107; RESP 17; TEMP 36.6; O2SAT 96
[2019-06-19] MEDS: Cefuroxime 500 MG TAB PO (20:40)
[2019-06-19] MEDS: Doxycycline Hyclate 100 MG CAP PO (20:40)
[2019-06-19] MEDS: LORazepam 1 MG TAB 3 MG PO (21:04)
[2019-06-19] MEDS: Lidocaine Patch Removal 1 EACH TD (21:07)
[2019-06-20 00:28] VITALS: BP 147/84; PULSE 93; RESP 16; TEMP 37; O2SAT 96
[2019-06-20] MEDS: Ibuprofen 600 MG TAB PO ×2 (01:31→10:12)
[2019-06-20 03:39] VITALS: BP 150/80; PULSE 93; RESP 16; TEMP 37.3; O2SAT 96
[2019-06-20 07:18] VITALS: BP 156/88; PULSE 104; RESP 18; TEMP 36.8; O2SAT 96
[2019-06-20 07:43] LABS: Abs Immature Grans 0.06 k/cumm (0.0-0.09); Absolute Basophil Count 0.01 k/cumm (0.0-0.2); Absolute Eosinophil Count 0.15 k/cumm (0.0-0.7); Absolute Lymphocyte Count 0.66 k/cumm (1.2-3.4); Absolute Monocyte Count 0.59 k/cumm (0.11-0.7); Absolute Neutrophil Count 3.79 k/cumm (1.2-6.7); Basophils % 0.2; Eosinophils % 2.9; HCT 33.3 % (36.0-46.0); HGB 10.4 g/dL (12.0-15.5); Immature Grans % 1.1; Lymphocytes % 12.5; Mean Corp. HGB Concentration 31.2 g/dL (32.0-36.0); Mean Corpuscular Hemoglobin 29.8 pg (27.0-33.0); Mean Corpuscular Volume 95.4 fL (80-95); Monocytes % 11.2; Neutrophils % 72.1; Platelet Count 319 x1000/uL (130-400); RBC 3.49 m/cumm (4.00-5.20); RBC Distribution Width 16.3 % (11.7-14.6); White Blood Cell Count 5.26 k/cumm (4.4-10.8)
[2019-06-20] MEDS: Multivitamin w/Minerals TAB 1 TAB PO (07:57)
[2019-06-20] MEDS: Pantoprazole 40 MG TABCR PO (07:57)
[2019-06-20] MEDS: Metoprolol 50 MG TAB PO (07:57)
[2019-06-20] MEDS: guaiFENesin 600 MG TABCR PO (07:57)
[2019-06-20] MEDS: hydroCHLOROthiazide 12.5 MG TAB PO (07:57)
[2019-06-20] MEDS: Folic Acid 1 MG TAB PO (07:57)
[2019-06-20] MEDS: Thiamine 100 MG TAB PO (07:58)
[2019-06-20] MEDS: Benzonatate 200 MG CAP PO ×2 (07:58→13:51)
[2019-06-20] MEDS: Venlafaxine 37.5 MG CAPCR PO (07:59)
[2019-06-20] MEDS: Venlafaxine 150 MG CAPCR PO (07:59)
[2019-06-20] MEDS: amLODIPine 10 MG TAB PO (07:59)
[2019-06-20] MEDS: Cefuroxime 500 MG TAB PO (07:59)
[2019-06-20] MEDS: Gabapentin 300 MG CAP PO (07:59)
[2019-06-20] MEDS: Refresh PLUS Eye Drops 0.4ml OU ×2 (07:59→11:42)
[2019-06-20] MEDS: Fluticasone NASAL SPRAY 16 GM BTL NS (08:03)
[2019-06-20] MEDS: Lidocaine 5% Patch 1 PATCH TP (08:03)
[2019-06-20 08:14] LABS: Anion Gap 9.5 mmol/L (3-11); BUN 19 mg/dL (7-18); CO2 26.5 mmol/L (21.0-32.0); CREATININE 0.92 mg/dL (0.55-1.02); Calcium 9.7 mg/dL (8.5-10.1); Chloride 105 mmol/L (98-107); Estimated GFR 59.84 (mL/min/1.73m2); Glucose 107 mg/dL (70-100); Potassium 3.7 mmol/L (3.5-5.1); Sodium 141 mmol/L (136-145)
[2019-06-20 08:37] LABS: Procalcitonin 0.3 ng/mL
[2019-06-20] MEDS: Doxycycline Hyclate 100 MG CAP PO (10:12)
[2019-06-20] MEDS: Magnesium Oxide 400 MG TAB PO (10:12)
[2019-06-20 11:06] VITALS: BP 131/79; PULSE 92; RESP 17; TEMP 36.5; O2SAT 97
[2019-06-20 12:20] LABS: Vancomycin, Trough 12.5 ug/mL (10.0-20.0)
[2019-06-20] MEDS: Enoxaparin 40 MG/0.4 ML SYR SC (13:51)
--- NOTE | 2019-06-20 14:43 | W.PM.DS.N ---
Date of service: 06/20/19 Time of Service: 14:43 DS: Diagnosis Discharge Diagnosis (1) Sepsis: Status: Resolved (2) Pneumonia: Status: Resolved (3) Acute kidney injury (nontraumatic): Status: Resolved (4) Renal mass: Status: Suspected Asessment and Plan: Needs outpatient contrast CT or renal protocol MRI (5) Alcohol abuse: Status: Chronic (6) Hypertension: Status: Chronic (7) GERD (gastroesophageal reflux disease): Status: Chronic (8) Photophobia of right eye: Status: Acute (9) Atelectasis of left lung: Status: Acute (10) Arthralgia of temporomandibular joint: Status: Chronic (11) Generalized weakness: Status: Resolved Asessment and Plan: Uses a cane and a walker with PT - has both, cane and a FWW at home. Discharge Plan Disposition Patient Disposition: HOME W/HOME HEALTH SERVICE Condition: Improving Discharge Details Chief Complaint: GenMedical Clinical Impression: Sepsis, HCAP (healthcare-associated pneumonia), Vomiting, Abdominal pain, epigastric, Acute kidney injury, Acute dehydration Reason For Visit: SEPSIS, PNEUMONIA, ACUTE KIDNEY INJURY Admit Date/Time: 06/10/19 22:16 Admit Provider: Gwyn Blake Attending Provider: Gwyn Blake Primary Care Provider: Lavelle Galindo ED Provider: Paul Chavira Hospital Course Hospital Course: Mr Garza is a 74 year old female with PMHx of alcohol abuse with Wernicke's Encephalopathy, as well as hypertension, rib fractures on the left, resulting in hemothorax on a prior admission, ambulatory dysfunction, who was admitted to [facility] ICU on 06/10/19 with sepsis due to pneumonia. She was never febrile, but did have a leucocytosis as well as lactic acidosis. She was never in shock. Her blood cultures were negative. No sputum culture data is available. She was treated with aztreonam and levofloxacin in the ED, but because there was suspected aspiration (the patient was vomiting), her antibiotics were upgraded to vancomycin, cefepime, and flagyl on 06/11/19. With this therapy, the patient steadily improved. She was transferred out of the ICU on 06/13/19 to the medical surgical floor. She never had DT's, but possibly did have a mild degree of alcohol withdrawal, for which she was monitored on CIWA. While her procalcitonin had not normalized by antibiotic day 10, the case was discussed with [facility] ID, and because of patient's clinical resolution of illness, it is felt safe to completely stop the antibiotics and discharge patient home with home health RN, PT, OT, [employer], and close follow up with PCP. PCP should follow up on the incidental findings of right renal cystic lesions with either a contrast CT or renal MRI. 45 minutes were spent on care for patient as well as completion of her discharge paperwork on the day of discharge. Home Meds and New Rx's Prescriptions: New ibuprofen [IBU] 600 mg Tablet 600 mg PO TID PRN PRN (Reason: prn TMJ) Qty: 30 RF: 0 Refresh Plus 0.5 % Dropperette 1 drp OU Q4H WHILE AWAKE Qty: 30 RF: 0 sodium chloride [Deep Sea Nasal] 0.65 % Aerosol,[place] 1 spray NS QID PRN PRN (Reason: dry nasal passages) Qty: 30 RF: 0 fluticasone propionate 50 mcg/actuation [place],Suspension 1 spray NS DAILY Qty: 15.8 RF: 0 Continued acetaminophen [Tylenol Extra Strength] 500 mg tablet 1,000 mg PO Q8H PRN PRNRF: 0 lidocaine 5 % adhesive patch,medicated 1 patch TP DAILY RF: 0 gabapentin 300 mg capsule 300 mg PO BID Qty: 90 RF: 5 metoprolol tartrate 50 mg tablet 50 mg PO BID Qty: 60 RF: 2 hydrochlorothiazide 12.5 mg tablet 12.5 mg PO DAILY Qty: 90 RF: 3 venlafaxine 150 mg capsule,extended release 24hr 150 mg PO DAILY Qty: 90 RF: 3 venlafaxine 37.5 mg capsule,extended release 24hr 37.5 mg PO DAILY RF: 0 folic acid 1 mg Tablet 1 mg PO DAILY Qty: 14 RF: 0 multivitamin [Multiple Vitamins] Tablet 1 tab PO DAILY Qty: 0 RF: 0 thiamine mononitrate (vit B1) [Vitamin B-1 (mononitrate)] 100 mg Tablet 100 mg PO DAILY Qty: 0 RF: 0 amlodipine 10 mg Tablet 10 mg PO DAILY Qty: 0 RF: 0 pantoprazole 40 mg Tablet,Delayed Release (Dr/Ec) 40 mg PO DAILY@0730 Qty: 0 RF: 0 albuterol sulfate 90 mcg/actuation HFA aerosol inhaler 2 puff IH Q4H PRN (Reason: shortness of breath) Qty: 8.5 RF: 0 magnesium oxide [MagOx] 400 mg (241.3 mg magnesium) tablet 400 mg PO BID Qty: 30 RF: 0 Discontinued potassium chloride [Klor-Con M10] 10 mEq tablet,ER particles/crystals 20 meq PO BID@0800,2000 RF: 0 levofloxacin 750 mg tablet 750 mg PO DAILY Qty: 4 RF: 0 Discharge Instructions Instructions: Acute Kidney Injury (GEN), Pneumonia (GEN) Additional Instructions: Return to the hospital with any fever, bleeding, chest pain, or shortness of breath. Care Plan Goals: Home with home health RN, PT, OT, [employer] Stand Alone Forms: Nursing Discharge Form Referrals: Lavelle Galindo [Primary Care Provider] - 06/27/19 2:00 pm () Activity:: Activity as Tolerated Equipment/Supplies:: No Equipment Needed Diet:: Low Sodium Discharge Orders Discharge Orders: Discharge Order (Routine); Ordered 06/20/19 Ordered By: Laly Dumont DS: Summary Status at Discharge Functional status at discharge: uses cane/walker Overall status at discharge: patient is back to baseline Mental Status: mental status grossly normal Speech and Movement: speech and movement normal Mood: congruent mood Affect: normal affect Exam Narrative Exam Narrative: General: very pleasant elderly female, A&Ox3, sitting comfortably in a chair, no shortness of breath observed HEENT: EOMI, MMM, wearing a R eye patch Heart: RRR, ?quiet KIRTI Lungs: Crackles at B bases, better GI: abdomen is soft, nontender, nondistended Extremities: No edema BLE's, +1 pedal pulses B, wearing TEDs. Psych Mental Status: mental status grossly normal Speech and Movement: speech and movement normal Mood: congruent mood Affect: normal affect DS: Data Vitals/I&O Vitals and I&O: Vital Signs Temperature 36.5 C 06/20/19 11:06 Temperature Source Tympanic 06/20/19 11:06 Pulse 92 H 06/20/19 11:06 Pulse Rhythm Regular 06/20/19 08:15 Pulse 82 06/13/19 16:04 Respiratory Rate 17 06/20/19 11:06 Respiratory Effort Non-Labored 06/20/19 08:15 Respiratory Depth Normal 06/20/19 08:15 Respiratory Pattern Normal 06/20/19 08:15 Blood Pressure 131/79 06/20/19 11:06 Blood Pressure Mean 82 06/13/19 16:04 Blood Pressure Position Sitting 06/13/19 12:05 Pulse Oximetry 97 06/20/19 11:06 Oxygen Delivery Method Room Air 06/20/19 11:06 Oxygen Flow Rate 0 06/20/19 11:06 Pain Level 6 06/20/19 11:06 Comment 06/19/19 07:00 Intake & Output 06/19/19 06/20/19 06/20/19 23:59 11:59 23:59 Intake Total 650 / 1000 1989 Output Total 1700 / 1700 Balance 650 / 500 290 / 290 Weight 64.9 kg Intake: IV 410 / 760 Oral 240 / 240 1989 Output: Urine 1700 / 1700 Other: Urine Color Yellow Urine Appearance Clear Clear Urine Odor Normal Comment multiple voids Voiding Methods Toilet Toilet Diaper Incontinent Data Completed and Pending Completed studies during hospitalization [Text1]: CT abdomen/pelvis 06/10/19: No evidence of acute intra-abdominal process. Multiple renal lesions again noted as seen on previous CT examinations, nonobstructing left renal stone and right renal stone also noted. CXR PA and lateral 06/10/19: Note is again made of multiple left rib fractures with left pleural effusion. Lungs appear grossly clear. No gross interval change in appearance comparison with examination of May 22. US abdomen 06/10/19: No evidence of cholelithiasis. Hyperdense renal lesions noted on CT, thought to be cysts stable, are not identified on ultrasound. Additional evaluation with contrast-enhanced CT or renal protocol MRI should be considered if clinically appropriate to evaluate these lesions. US renal 06/11/19: Renal ultrasound was performed. There is limited visualization of the kidneys due to patient's body habitus and inability to cooperate. Two cystic lesions of the right kidney are noted. Additional renal lesions identified on CT are not identified. Correlation with contrast-enhanced CT or renal protocol MRI should be considered to evaluate these lesions. CXR 06/16/19: Findings suggesting decreased pulmonary ventilation since the previous examination of June 10. Increased atelectasis may be present in the left lung base. Interval development of pneumonia not excluded. CXR 06/19/19: No acute abnormality. Labs on day of discharge: Labs from last 24 hours 06/20/19 06/20/19 06/20/19 10:50 07:00 07:00 WBC 5.26 RBC 3.49 L Hgb 10.4 L Hct 33.3 L MCV 95.4 H MCH 29.8 MCHC 31.2 L RDW 16.3 H Plt Count 319 MPV 9.0 Immature Gran % 1.1 Neutrophils % 72.1 Lymphocytes % 12.5 Monocytes % 11.2 Eosinophils % 2.9 Basophils % 0.2 Absolute Neutrophils 3.79 Absolute Lymphocytes 0.66 L Absolute Monocytes 0.59 Absolute Eosinophils 0.15 Absolute Basophils 0.01 Sodium Potassium Chloride Carbon Dioxide Anion Gap BUN Creatinine Estimated GFR/1.73 m2 Glucose Calcium Magnesium Procalcitonin 0.3 Vancomycin Trough 12.5 06/20/19 07:00 WBC RBC Hgb Hct MCV MCH MCHC RDW Plt Count MPV Immature Gran % Neutrophils % Lymphocytes % Monocytes % Eosinophils % Basophils % Absolute Neutrophils Absolute Lymphocytes Absolute Monocytes Absolute Eosinophils Absolute Basophils Sodium 141 Potassium 3.7 Chloride 105 Carbon Dioxide 26.5 Anion Gap 9.5 BUN 19 H Creatinine 0.92 Estimated GFR/1.73 m2 59.84 Glucose 107 H Calcium 9.7 Magnesium 2.0 Procalcitonin Vancomycin Trough PFSH Medical History Alcohol abuse (Chronic) Alcoholic ketosis (Resolved) Allergic rhinitis (Chronic) Anemia (Chronic 12/20/16) Back pain, chronic (Chronic) Cataract (Chronic 11/07/15) Cervical radicular pain (Chronic) neck pain and [facility]D [facility] Chronic alcoholic gastritis (Chronic 10/12/17) pls refrain from alcohol Corneal ulcer, right (Inactive ~08/23/18) 08/23/18; [facility] Depression (Chronic) Elev transaminase/LDH (Chronic) due to alcohol Falling (Chronic) Genital herpes simplex (Chronic) recurrent gential; suppressive Valtrex GERD (gastroesophageal reflux disease) (Chronic) GI bleed (Chronic 12/20/16) Headache (Chronic) Hyperlipidemia (Chronic) Hypertension (Chronic) high today; she will check readings at home 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 Multiple rib fractures (Acute) 03/11/19 [facility] Non-cardiac chest pain (Chronic 09/21/16) [facility] 09/21/16 NEGATIVE MP Osteoarthritis (Chronic) Osteopenia (Chronic) 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) Pleural effusion on left (Chronic) 03/11/19 [facility] Right rib fracture (Resolved) Sciatica (Chronic) right, epidural injuections [facility] Tendinitis of left rotator cuff (Inactive) Tubular adenoma of colon (Chronic 01/28/17) Urinary incontinence (Chronic) 01/24/13 urethral suspension and sling at [facility] (bladder suspension 1991) Wernicke encephalopathy (Chronic) Surgical History Bladder Surgery suspension Colonoscopy - MAC (01/28/17) EGD - MAC (12/20/16) Ligation of fallopian tube Repair bladder injury, simple Family History Mother No problems noted. Father , DROWNED at age 50. No problems noted. Sister Personal history of malignant neoplasm MELANOMA Sister No problems noted. Grandfather Personal history of malignant neoplasm STOMACH Grandfather Personal history of malignant neoplasm PROSTATE Grandmother Heart disease CO Acute ill-defined cerebrovascular disease Grandmother Personal history of malignant neoplasm UTERINE Aunt , CO Heart disease CO Aunt , CO Heart disease Brother No problems noted. Social History Smoking/Tobacco Use Status: Former Tobacco Use Alcohol Intake: current Alcohol Intake frequency: 3 or more drinks per day Alcohol type: hard liquor Drug use: Never Substance use type: does not use Details: Patient states her last alcohol intake was 2 days ago 05/19/19-pt states last drink was weeks ago Do you feel safe at home: Yes Do you feel safe in your relationship?: Yes Additional Social history: my caregiver is an anxiety attack person
--- NOTE | 2019-06-20 15:03 | PDOC.CMDIS ---
- If Service Date Differs Date of service: 06/20/19 Time of Service: 15:03 LACE Index Scoring Tool - Questions: Length of Stay (in days): 7 - 13 Acuity (Admit via E.D.?): Yes E.D. Visits: 22 - Answers: Total Score: 12 Risk of Readmission: High Risk Care Management Discharge Reason for Hospitalization: Sepsis, pneumonia, AMBER Discharge Plan: Leticia will return home with new orders for HH nursing, PT/OT. CM coordinated transportation via [facility] private vehicle. She is agreeable to the plan and happy to be going home. Patient/Family Education Needs: Review discharge instructions, discussion of self care needs including Ask Me Three Services Needed at Discharge: Home Health Care Services, Transportation
--- NOTE | 2019-06-20 15:47 | PDOC.HHF2F_ITS ---
Home Health Certification Home Health Certification: 1. Encounter Date and Reason I certify that LINDA CONROY was seen by Laly Dumont on 06/20/19 and that I had a [id number] encounter with this patient that meets the physician face to face encounter requirements. 2. Clinical Findings Supporting Skilled Need and Homebound Status I certify that home health services are medically necessary, include either intermittent mcc and/or physical/speech therapy, and that this pat ient is homebound in that absences from the home require considerable and taxing effort and are infrequent or of short duration, or are attributable to the need to receive medical care. [X] (a) Attached documentation from encounter provides clinical findings supporting skilled need and homebound status (including what assistance patient requires to leave the home). The encounter with the patient was in whole, or in part, for the following medical condition, which is the primary reason for home health care: SEPSIS, PNEUMONIA, ACUTE KIDNEY INJURY Alf: Patient with complex medical history, multiple hospitalizations, HTN, Wernicke's encephalopathy, recent PNA Physical Therapy: eval and treat Occupational Therapy: eval and treat WINDOWS TECHNICAL SPECIALIST: evaluate for resources that could benefit the patient in the community Homebound: unable to leave home without assistance. 3. Certification and Authentication I certify that I composed the above information based on my clinical judgement relating to this patient's medical condition and, if applicable, clinical findings communicated to me by the NPP or inpatient physician who performed the Home Health Referral. All further orders will be obtained through ____Dr Galindo (Community Based Physician - PCP)
== END 2019-06-20 16:07 | disposition home health service (06) | DRG 871 ==
LOC: ER 22:45 → ICU 23:46 → MS 06-20 10:18 → ICU 06-21 10:56
PROVIDERS: General Practice; Internal Medicine; Admitting Provider Internal Medicine; Emergency Provider Student in an Organized Health Care Education/Training Program; PCP Family Medicine; Visit Provider Internal Medicine
DX: A41.9 Sepsis, unspecified organism (principal); J69.0 Pneumonitis due to inhalation of food and vomit; J18.1 Lobar pneumonia, unspecified organism; N17.9 Acute kidney failure, unspecified; J98.11 Atelectasis; E87.2 Acidosis; R65.20 Severe sepsis without septic shock; F10.20 Alcohol dependence, uncomplicated; G31.2 Degeneration of nervous system due to alcohol; I10 Essential (primary) hypertension; K21.9 Gastro-esophageal reflux disease without esophagitis; H53.141 Visual discomfort, right eye; R53.1 Weakness; R11.10 Vomiting, unspecified; E86.0 Dehydration; N28.89 Other specified disorders of kidney and ureter; E78.5 Hyperlipidemia, unspecified; M26.623 Arthralgia of bilateral temporomandibular joint; R26.89 Other abnormalities of gait and mobility; Z91.81 History of falling; K29.20 Alcoholic gastritis without bleeding; S22.42XD Multiple fractures of ribs, left side, subsequent encounter for fracture with routine healing; W19.XXXD Unspecified fall, subsequent encounter
CPT/HCPCS: 36410; 36415; 76770; 80048; 80053; 83690; 84145; 87040; 87449; 93005; 96361; 96365; 96367; 96375; 97162; 97530; 99223; 99232; 99233; 99239; 99285; J1650; 71046; 74176; 76705; 80202; 81003; 83605; 83735; 84484; 85025; 85379; 85610; 85730; 87086; 87324; 87450; 93010; 94640; 94667; J1644; J1720; J1956; J2060; J2405; J3490; J7613; J7620

== ENCOUNTER 2019-06-27 10:31 | Outpatient (CLI) | payer OTHER, SELFPAY ==
--- NOTE | 2019-06-27 10:20 | DI.RAD_ITS ---
EXAM: XR CLAVICLE RT LIMITED 1V INDICATION: f/u. COMPARISON: XR CLAVICLE RT LIMITED 1V from 05/30/2019 TECHNIQUE: 2D digital imaging was performed. FINDINGS: There has been no change in alignment of the comminuted displaced fracture involving the distal right clavicle.
== END 2019-06-27 10:51 ==
PROVIDERS: PCP Family Medicine; Referring Provider Family Medicine; Visit Provider Orthopaedic Surgery
DX: S42.031D Displaced fracture of lateral end of right clavicle, subsequent encounter for fracture with routine healing (principal); X58.XXXD Exposure to other specified factors, subsequent encounter
CPT/HCPCS: 99213; 73000

== ENCOUNTER 2019-06-30 15:59 | Inpatient (IN) | payer OTHER, SELFPAY ==
[2019-06-30] VITALS (30 sets, daily range): BP systolic 147–189; BP diastolic 77–101; PULSE 84–126; RESP 15–33; TEMP 37.1–37.4; O2SAT 89–99
--- NOTE | 2019-06-30 16:03 | ED.GENADUL_ITS ---
Discharge Plan Disposition Patient Disposition: [facility] INPATIENT Condition: Fair Discharge Details Chief Complaint: Nausea/Vomit/Diar Clinical Impression: Hypomagnesemia, Alcohol abuse, Alcohol withdrawal, Hypokalemia, Nausea and vomiting in adult Admit Date/Time: 06/30/19 18:54 Admit Provider: Saeed Thompson Attending Provider: Saeed Thompson Primary Care Provider: Lavelle Galindo ED Provider: Tash Servin Discharge Data Discharge Date/Time-TO BE ENTERED AT DEPARTURE: 06/30/19 19:50 Medical Decision Making Patient is a 74-year-old female, well-known to the department, with chief complaint of nausea and vomiting that began last night. States she vomited multiple times throughout the course of the night. Denies any abdominal pa. Denies any fevers or chills. No diarrhea. Does not feel shaky. She does not like going to alcohol but has been drinking multiple drinks daily but stopped 48 hours ago. Unclear exactly why she stopped drinking. She does not feel that she has been trying. Denies any chest pain. Patient is chronically short of breath but is not short of breath at this time. Was seen by her primary care yesterday who had prescribed patient nebulizer but no acute wheezing noted. Past surgical history pertinent for tubal ligation. Patient underwent a colonoscopy in 2017 as well as an EGD. On exam, patient appears intoxicated. She has her eyes closed has given for short answers. She needs frequently aroused but does answer appropriately wants she is awake. She is not shaky does report nausea. She did vomit with EMS. Appears chronically unwell. Normal cardiac exam. Crackles noted in the bases bilaterally. Patient was treated recently for pneumonia. As the patient has repeat crackles and is feeling well at this point, I am concerned for her current illness. Given her level of alcoholism, I am concerned for possible aspiration pneumonia. Patient does have right upper quadrant pain on exam, there was concern for possible gallbladder disease and a recent admission. Negative Zavala sign. EKG was reviewed by Dr. Lafleur. Patient seems to be in sinus tachycardia. Otherwise no acute ischemic changes. Labs reviewed. No leukocytosis. Patient symptoms 11.4 but this uptrending from recent admission. D-dimer slightly elevated for age-adjusted 789 but this is downtrending from recent admission at which time her d-dimer was 1556. Her potassium is critically low at 2.8, will begin replenishing this IV. Do not believe the patient will tolerate oral. Chloride is low at 95. Anion gap of 13.1. BUN, creatinine and GFR remain stable. Glucose is elevated 178. Lactate is 2.4. Magnesium is 1.2, with osteoporosis IV. Troponin is normal less than 0.05. BNP is slightly elevated at 848. Reviewed chest x-ray, awaiting read from radiologist. Do not see any evidence to suggest acute change from previous. However, with the patient's tachycardia, shortness of breath, recent auscultation elevated d-dimer plan move forward with CT for PE. We will also image the patient's abdomen she is having right upper quadrant discomfort and was noted to have gallbladder abnormalities on recent admission with no evidence of acute cholecystitis. Patient is feeling improved at this time. She continues to appear fatigued but did respond well to the Zofran. Patient was given a PPI and Ativan as well for concern for alcoholic gastritis as well as concern for withdrawal being the source of the nausea vomiting. Consulted by Dr. Bay. Patient is receiving her IV potassium and magnesium. She continues to be sleepy while here. As the CT does not show any new infiltrate, will hold off on antibiotics. Because patient does not have any leukocytosis on labs. Patient to be admitted to the floor. HPI General Mode of arrival: EMS . Date/Time Provider Initiated Documentation: 06/30/19 16:02 . Limitations to Documentation: no limitations . Information obtained by: patient, EMS and RN notes reviewed . HPI Narrative: Patient is a 74-year-old female, well-known to the department, with chief complaint of nausea and vomiting. She reports that this began last night and is endorsing some abdominal pain. Is endorsing shortness of breath but this seems to be more chronic. No recent fevers. Patient was recently admitted and was discharged on 06/20/19 after a 10-day course for sepsis, pneumonia, AMBER, renal mass, alcohol abuse, hypertension. Patient states that she has been drinking alcohol since discharge. She has a known history of large amount of alcohol consumption. She reports that since discharge she is only been having 3 drinks a day. States she is primarily drinking whiskey. However, 2 days ago she stopped drinking alcohol and began having nausea vomiting the following day. Denies any seizures with withdrawal historically. Patient does have known history of Warnicke's encephalopathy. Patient was seen by her primary care on 06/27/2019 at which time a nebulizer was ordered as the patient was unable to use an inhaler while her shortness of breath. She has not yet been able to get this but states is been ordered for Tuesday. She denies any chest pain. Denies any feelings of palpitation. Related Data Home Medications Medication Instructions Recorded Confirmed folic acid 1 mg PO DAILY #14 tab 08/11/18 06/30/19 lidocaine 5 % topical patch 1 patch TP DAILY 04/10/19 06/30/19 pantoprazole 40 mg PO DAILY@0730 #0 tab 04/17/19 06/30/19 gabapentin 300 mg capsule 300 mg PO BID #90 cap 04/27/19 06/30/19 metoprolol tartrate 50 mg tablet 50 mg PO BID #60 tab 04/27/19 06/30/19 multivitamin [Multiple Vitamins] 1 tab PO DAILY #0 tab 05/03/19 06/30/19 magnesium oxide [MagOx] 400 mg PO BID #30 tab 05/21/19 06/30/19 hydrochlorothiazide 12.5 mg tablet 12.5 mg PO DAILY #90 tab 06/08/19 06/30/19 carboxymethylcellulose sodium 1 drp OU Q4H WHILE AWAKE #30 each 06/20/19 06/30/19 [Refresh Plus] fluticasone propionate 1 spray NS DAILY #15.8 ml 06/20/19 06/30/19 ibuprofen [IBU] 600 mg PO TID PRN PRN #30 tab 06/20/19 06/30/19 ipratropium-albuterol 0.5 mg-3 3 ml IH QID PRN #90 ml 06/27/19 06/30/19 mg(2.5 mg base)/3 mL nebulization soln venlafaxine 150 mg 150 mg PO DAILY #30 cap 06/27/19 06/30/19 capsule,extended release 24 hr venlafaxine 37.5 mg 37.5 mg PO DAILY #30 cap 06/27/19 06/30/19 capsule,extended release 24 hr amlodipine 10 mg tablet 10 mg PO DAILY #90 tab 06/28/19 06/30/19 thiamine mononitrate (vit B1) 100 100 mg PO DAILY #90 tab 06/28/19 06/30/19 mg tablet Previous Rx's Medication Instructions Recorded folic acid 1 mg PO DAILY #14 tab 08/11/18 pantoprazole 40 mg PO DAILY@0730 #0 tab 04/17/19 gabapentin 300 mg capsule 300 mg PO BID #90 cap 04/27/19 metoprolol tartrate 50 mg tablet 50 mg PO BID #60 tab 04/27/19 multivitamin [Multiple Vitamins] 1 tab PO DAILY #0 tab 05/03/19 magnesium oxide [MagOx] 400 mg PO BID #30 tab 05/21/19 hydrochlorothiazide 12.5 mg tablet 12.5 mg PO DAILY #90 tab 06/08/19 carboxymethylcellulose sodium 1 drp OU Q4H WHILE AWAKE #30 each 06/20/19 [Refresh Plus] fluticasone propionate 1 spray NS DAILY #15.8 ml 06/20/19 ibuprofen [IBU] 600 mg PO TID PRN PRN #30 tab 06/20/19 ipratropium-albuterol 0.5 mg-3 3 ml IH QID PRN #90 ml 06/27/19 mg(2.5 mg base)/3 mL nebulization soln venlafaxine 150 mg 150 mg PO DAILY #30 cap 06/27/19 capsule,extended release 24 hr venlafaxine 37.5 mg 37.5 mg PO DAILY #30 cap 06/27/19 capsule,extended release 24 hr amlodipine 10 mg tablet 10 mg PO DAILY #90 tab 06/28/19 thiamine mononitrate (vit B1) 100 100 mg PO DAILY #90 tab 06/28/19 mg tablet Allergies Allergy/AdvReac Type Severity Reaction Status Date / Time Penicillins Allergy Mild Rash Verified 06/30/19 16:04 ramipril Allergy Unknown ITCHING Verified 06/30/19 16:04 meperidine [From Demerol] AdvReac Severe Nausea Verified 06/30/19 16:04 bupropion AdvReac Mild GI upset Verified 06/30/19 16:04 AMBER Inhibitors AdvReac Unknown COUGH Verified 06/30/19 16:04 alendronate sodium AdvReac Unknown GI Distress Verified 06/30/19 16:04 clarithromycin AdvReac Unknown intolerant Verified 06/30/19 16:04 paroxetine AdvReac Unknown Diarrhea Verified 06/30/19 16:04 General JORDAN: 3 Review of Systems Constitutional Constitutional: Reports as per HPI, Denies chills, Reports fatigue, Denies fever(s), Denies headache(s), Denies lethargy and Reports poor appetite Eyes Eyes: Denies change in vision ENT Ears, Nose, Mouth, and Throat: Denies dizziness and Denies headache(s) Cardiovascular Cardiovascular: Reports as per HPI, Denies dyspnea and Denies dyspnea on exertion Respiratory Respiratory: Reports as per HPI, Denies chest congestion, Denies cough, Denies pain on inspiration, Denies pain with cough, Denies dyspnea, Denies dyspnea on exertion and Denies wheezing Gastrointestinal Gastrointestinal: Reports as per HPI, Denies abdominal pain, Denies change in stool character, Denies diarrhea, Reports nausea, Reports vomiting and Denies hematemesis Genitourinary Genitourinary: Reports system reviewed and no additional complaints, except as docu (denies change in urinary habits) Musculoskeletal Musculoskeletal: Reports as per HPI and Denies back pain Integumentary/Breasts Skin/Breast: Reports as per HPI and Denies rash Neurologic Neurologic: Reports as per HPI, Denies dizziness and Denies headache(s) Endocrine Endocrine: Reports fatigue Allergic/Immunologic Allergic/Immunologic: Denies wheezing [facility] Medical History Alcohol abuse (Chronic) Alcoholic ketosis (Resolved) Allergic rhinitis (Chronic) Anemia (Chronic 12/20/16) Back pain, chronic (Chronic) Cataract (Chronic 11/07/15) Cervical radicular pain (Chronic) neck pain and [facility] Chronic alcoholic gastritis (Chronic 10/12/17) pls refrain from alcohol Corneal ulcer, right (Inactive ~08/23/18) 08/23/18; [facility] Depression (Chronic) Elev transaminase/LDH (Chronic) due to alcohol Falling (Chronic) Genital herpes simplex (Chronic) recurrent gential; suppressive Valtrex GERD (gastroesophageal reflux disease) (Chronic) GI bleed (Chronic 12/20/16) Headache (Chronic) Hyperlipidemia (Chronic) Hypertension (Chronic) high today; she will check readings at home 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 09/21/16 NEGATIVE MP Osteoarthritis (Chronic) Osteopenia (Chronic) 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) Pleural effusion on left (Chronic) 03/11/19 [facility] Right rib fracture (Resolved) Sciatica (Chronic) right, epidural injuections [facility] Tendinitis of left rotator cuff (Inactive) Tubular adenoma of colon (Chronic 01/28/17) Urinary incontinence (Chronic) 01/24/13 urethral suspension and sling at [facility] (bladder suspension 1991) Wernicke encephalopathy (Chronic) Surgical History Bladder Surgery suspension Colonoscopy - [facility] (01/28/17) EGD - [facility] (12/20/16) Ligation of fallopian tube Repair bladder injury, simple Family History Mother No problems noted. Father , DROWNED at age 50. No problems noted. Sister Personal history of malignant neoplasm MELANOMA Sister No problems noted. Grandfather Personal history of malignant neoplasm STOMACH Grandfather Personal history of malignant neoplasm PROSTATE Grandmother Heart disease NM Acute ill-defined cerebrovascular disease Grandmother Personal history of malignant neoplasm UTERINE Aunt , NM Heart disease NM Aunt , NM Heart disease Brother No problems noted. Social History Smoking/Tobacco Use Status: Former Tobacco Use Alcohol Intake: current Alcohol Intake frequency: 3 or more drinks per day Alcohol type: hard liquor Drug use: Never Substance use type: does not use Details: Patient states her last alcohol intake was 2 days ago 05/19/19-pt states last drink was weeks ago Do you feel safe at home: Yes Do you feel safe in your relationship?: Yes Additional Social history: my caregiver is an anxiety attack person Exam Const General: cooperative, comfortable, no acute distress, well developed and ill appearing chronically Nutritional Appearance: average body habitus and well nourished Orientation: alert, awake and oriented x3 HENMT Head: normal to inspection Ears: hearing grossly normal bilaterally Mouth: mucous membranes dry (patient appears dry) Chest Chest: normal inspection of the chest, normal palpation of entire chest wall and no crepitus Resp Effort & Inspection: normal respiratory effort, able to speak in complete sentences and no respiratory distress Auscultation: crackles bilaterally at the base, no rales, no rhonchi and no wheezes Cardio Rate: regular rate Rhythm: regular rhythm Heart Sounds: S1 normal and S2 normal GI Inspection: normal to inspection, no edema and non-distended Palpation: soft, no hepatosplenomegaly, not firm, no guarding, not rigid and tender in the RUQ; not at McBurney's point, Zavala's sign negative and with no rebound tenderness Auscultation: normal bowel sounds Back/Spine/Pelvis Back: no CVA tenderness Thoracic/Lumbar Spine: thoracic and lumbar spine normal to inspection Skin General skin exam: no rashes or lesions noted Trauma: no lacerations or abrasions Neuro General: alert, awake and oriented x3 Cognition: normal cognition Speech: speech normal Extrem General: normal to inspection, normal capillary refill, no pedal edema, no calf tenderness and normal gait Psych Appearance: grossly normal and well kempt Mental Status: mental status grossly normal Speech and Movement: speech and movement normal
[2019-06-30 16:13] LABS: Abs Immature Grans 0.02 k/cumm (0.0-0.09); Absolute Basophil Count 0.01 k/cumm (0.0-0.2); Absolute Eosinophil Count 0.01 k/cumm (0.0-0.7); Absolute Lymphocyte Count 0.54 k/cumm (1.2-3.4); Absolute Monocyte Count 0.71 k/cumm (0.11-0.7); Absolute Neutrophil Count 5.58 k/cumm (1.2-6.7); Basophils % 0.1; Eosinophils % 0.1; HCT 34.8 % (36.0-46.0); HGB 11.4 g/dL (12.0-15.5); Immature Grans % 0.3; Lymphocytes % 7.9; Mean Corp. HGB Concentration 32.8 g/dL (32.0-36.0); Mean Corpuscular Hemoglobin 30.3 pg (27.0-33.0); Mean Corpuscular Volume 92.6 fL (80-95); Mean Platelet Volume 8.5 fL (8.0-11.0); Monocytes % 10.3; Neutrophils % 81.3; Platelet Count 298 x1000/uL (130-400); RBC 3.76 m/cumm (4.00-5.20); RBC Distribution Width 16.4 % (11.7-14.6); White Blood Cell Count 6.87 k/cumm (4.4-10.8)
[2019-06-30 16:14] LABS: Lactate 2.4 mmol/L (0.6-1.4)
[2019-06-30] MEDS: Normal Saline 1,000 ML 1000 ML IV (16:20)
[2019-06-30] MEDS: Ondansetron 4 MG/2 ML VIAL (16:20)
[2019-06-30] MEDS: LORazepam 2 MG/ML VIAL 1 MG IVP (16:20)
[2019-06-30 16:31] LABS: ALT 35 U/L (14-59); AST 27 U/L (15-37); Albumin 3.9 g/dL (3.4-5.0); Alkaline Phosphatase 143 U/L (46-116); Anion Gap 13.1 mmol/L (3-11); BUN 9 mg/dL (7-18); Bilirubin, Total 1.7 mg/dL (0.2-1.0); CO2 28.9 mmol/L (21.0-32.0); CREATININE 0.77 mg/dL (0.55-1.02); Chloride 95 mmol/L (98-107); Glucose 178 mg/dL (70-100); Magnesium 1.2 mg/dL (1.8-2.4); Sodium 137 mmol/L (136-145); Total Protein 7.7 g/dL (6.4-8.2)
[2019-06-30 16:33] LABS: ETHANOL BLOOD < 3.0 mg/dL (<3); Potassium 2.8 mmol/L (3.5-5.1); Troponin I < 0.05 ng/mL (0.00-0.06)
[2019-06-30 16:52] LABS: NT-proBNP 848 pg/mL
[2019-06-30 17:05] LABS: D-Dimer 789 ng/mlFEU (<500)
--- NOTE | 2019-06-30 17:10 | DI.RAD_ITS ---
EXAM: XR CHEST 2V PA LATERAL INDICATION: cough. COMPARISON: XR CHEST 2V PA LATERAL from 06/16/2019 XR CHEST 2V PA LATERAL from 06/16/2019 XR CHEST 2V PA LATERAL from 06/19/2019 XR CHEST 2V PA LATERAL from 06/19/2019 CT CHEST PE ABD PELVIS W from 06/30/2019 TECHNIQUE: 2D digital imaging was performed. FINDINGS: The heart is enlarged and the aorta is tortuous, unchanged. There are bilateral old rib fractures. The lungs are suboptimally inflated on both views. There is chronic left pleural thickening. No a cute infiltrate or pulmonary edema is seen. There is a small left pleural effusion. IMPRESSION: Small left pleural effusion. Cardiomegaly.
[2019-06-30] MEDS: POTASSIUM CHLORIDE 20 MEQ/100 ML BAG 50 MEQ IVPB (17:15)
[2019-06-30] MEDS: Pantoprazole 40 MG TABCR PO (17:20)
--- NOTE | 2019-06-30 17:37 | DI.CT_ITS ---
EXAM: CT CHEST PE ABD AND PELVIS W CLINICAL HISTORY: RUQ pain TECHNIQUE: Post IV contrast. COMPARISON: CHEST ABD PELVIS WITH CONTRAST from 10/25/2016 CT CHEST/ABD/PEL WO from 03/11/2019 CT CHEST PE CTA from 05/19/2019 CT ABDOMEN PELVIS WO from 06/10/2019 FINDINGS: The liver again shows fatty infiltration. The gallbladder, spleen and pancreas are unremarkable. Ther e is a stable appearance of mild nodularity of the left adrenal gland. Multiple renal cysts are again noted. There is a large amount of fluid distending the vagina. The uterus is otherwise unremarkable. The left ovary is unremarkable. Right ovary is not definitely seen. There is a masslike rounded lesi on to the right of the lower sacral fat, which measures 3 x 4 cm. Findings may represent adenopathy v ersus other malignancy. This does appear stable when compared with previous exams. There is a 10 mil limeter ground-glass nodule in the right upper lobe, which appears unchanged when compared with the o ldest exam of September,. The lungs are expiratory and there is respiratory motion. There is a stable loculated left pleural effusion. No infiltrate or pericardial effusion is seen. There is no evidence of pulmonary emboli or aortic dissection. IMPRESSION: 1. No evidence of pulmonary emboli or aortic dissection. 2. Stable 10 millimeter right upper lobe ground-glass nodule. 3. Stable mass in the presacral fat, which could represent adenopathy versus other malignancy.
[2019-06-30] MEDS: Omnipaque 350 MG/ML 100 ML BTL IJ (17:58)
[2019-06-30] MEDS: MAGNESIUM SULFATE 1 GM/100 ML BAG IVPB (18:04)
--- NOTE | 2019-06-30 18:17 | DI.VRAD_ITS ---
PROCEDURE INFORMATION: Exam: CT Angiography Chest With Contrast Exam date and time: 06/30/2019 17:51 Clinical history: 74 years old, female; Other: Ruq pain; Other: Elevated d dimer TECHNIQUE: Imaging protocol: Computed tomographic angiography of the chest with intravenous contrast. 3D rendering: MIP reconstructed images were created and reviewed. COMPARISON: CT CHEST PE CTA 05/19/2019 22:34 FINDINGS: Pulmonary arteries: No pulmonary emboli. Aorta: Redemonstration of mild dilation of the ascending aorta, 37 x 40 mm with no dissection or evidence of rupture. Normal caliber of the descending aorta. Lungs: Focal groundglass nodule in the right lung apex approximately 10 mm similar to the previous study however warrants followup. Mostly dependent subsegmental atelectasis similar to the previous study. Pleural space: Similar small slightly loculated appearing left pleural effusion. No pneumothorax. Heart: Redemonstration of moderate cardiomegaly. Lymph nodes: No enlarged lymph nodes. Bones/joints: Multiple bilateral rib fractures appearing subacute to chronic are again seen. No definite acute rib fractures are identified. Mild loss of height in inferior T12 endplate, could be acute to subacute. Additional minor areas of loss of height in the thoracic spine appear likely nonacute. Soft tissues: No suspicious lesions. IMPRESSION: 1. No pulmonary emboli are seen. 2. Similar small slightly loculated appearing left pleural effusion. 3. Focal groundglass nodule in the right lung apex approximately 10 mm similar to the previous study however warrants followup. 4. Mostly dependent subsegmental atelectasis similar to the previous study. 5. Mild loss of height in inferior T12 endplate, could be acute to subacute. 6. Incidental findings as described. PROCEDURE INFORMATION: Exam: CT Abdomen And Pelvis With Contrast Exam date and time: 06/30/2019 17:51 Clinical history: 74 years old, female; Other: Ruq pain; Other: Elevated d dimer TECHNIQUE: Imaging protocol: Computed tomography of the abdomen and pelvis with intravenous contrast. 3D rendering: MIP reconstructed images were created and reviewed. COMPARISON: CT CHEST PE CTA 05/19/2019 22:34 FINDINGS: Liver: The liver appears mildly fatty. No hepatic masses. Gallbladder and bile ducts: No calcified stones. No ductal dilation. Pancreas: No ductal dilation. No masses. Spleen: No splenomegaly or focal lesions. Adrenals: Slightly nodular appearance of the left adrenal gland could represent small adenomas. Follow-up as per institutional protocol. No acute pathology in the right adrenal gland. Kidneys and ureters: Multiple benign-appearing renal cysts and probable cysts. Stomach and bowel: No obstruction. No mucosal thickening. Appendix: No evidence of appendicitis. Intraperitoneal space: No free air. No significant fluid collection. Vasculature: No abdominal aortic aneurysm. Lymph nodes: No significantly enlarged lymph nodes. Bladder: Unremarkable as visualized. Reproductive: Moderate amount of fluid in the vagina. Slightly heterogeneous uterus could represent uterine fibroids. Bones/joints: Significant multilevel degenerative changes in the lumbar spine with likely degenerative anterolisthesis L4 over L5. No acute fracture or subluxation. Mild lumbar levoscoliosis. Soft tissues: Soft tissue nodule left subcutaneous flank at the level of the iliac crest, could reflect medication injection however consider clinical correlation. Cluster of soft tissue nodules in the right low pelvis, 3 x 4 cm. IMPRESSION: 1. Cluster of soft tissue nodules in the right low pelvis, 3 x 4 cm. the etiology is uncertain however malignancy must be considered. 2. Moderate amount of fluid in the vagina. 3. Additional findings as described. Dictated and Authenticated by: Yadira Hernandez MD. Ordering:BECKIE Bianchi MD
--- NOTE | 2019-06-30 18:18 | DI.VRAD_ITS ---
PROCEDURE INFORMATION: Exam: XR Chest, 2 Views Exam date and time: 06/30/2019 16:27 Clinical history: 74 years old, female; Cough TECHNIQUE: Imaging protocol: XR of the chest Views: 2 views. COMPARISON: CR XR CHEST 2V PA LATERAL 06/19/2019 15:51 FINDINGS: Lungs: Subsegmental atelectasis in the left lung base. Mild generalized vascular congestion in the setting of low lung volumes. Pleural space: A small left pleural effusion appears similar, better demonstrated on CT. Heart/Mediastinum: Mild cardiomegaly. Bones/joints: Multiple nonacute-appearing rib fractures are again seen. Other findings: Chronic appearing ostial lysis of both clavicles again seen. IMPRESSION: 1. A small left pleural effusion appears similar, better demonstrated on CT. 2. Subsegmental atelectasis in the left lung base. 3. Mild generalized vascular congestion in the setting of low lung volumes. Dictated and Authenticated by: Yadira Hernandez MD. Ordering:BECKIE Bianchi MD
--- NOTE | 2019-06-30 19:08 | HPE_ITS ---
Date of service: 06/30/19 Time of Service: 19:08 Assessment and Plan Assessment and plan (1) Emesis, persistent: Start date: 06/30/19 Status: Acute Assessment and plan: This is a 74-year-old lady who has recurrent episodes of emesis and dehydration with daily alcohol use. She has chronic abdominal pain with recent evaluation revealing nothing specific to cause her symptoms but multiple abnormalities on CT which should be followed up as an outpatient. We will treat her nausea and vomiting symptomatically as we rehydrate her. We will watch for alcohol withdrawal. (2) Dehydration: Start date: 06/30/19 Status: Acute Assessment and plan: IV hydration with electrolyte repletion and follow-up on labs. This is recurrent because of her home situation and daily alcohol use. (3) Alcohol withdrawal: Status: Acute Assessment and plan: This is a recurrent problem with the patient to be the [facility] protocol during her hospital stay. Qualifiers: Complication of substance-induced condition: uncomplicated Qualified Code(s): F10.230 - Alcohol dependence with withdrawal, uncomplicated (4) Hypokalemia: Status: Acute Assessment and plan: Patient did receive magnesium and potassium IV in the ED and will continue on IV hydration with potassium supplement. Follow-up lab in the morning. Patient will be on telemetry. History of Present Illness History of Present Illness Chief Complaint: For nausea and vomiting with chronic abdominal pain. Narrative: This is a 74-year-old lady who is chronically drinking alcohol switching from wine to whiskey recently and trying to decrease the amount that she drinks. He was recently admitted with pneumonia and had a work-up for her abdominal pain which was unrevealing. She does have chronic pleural effusions and she is concerned about a mass in her right upper lung with CT scan of the abdomen and pelvis today revealing also possible tumor in her pelvis. She complained of persistent nausea and vomiting and came in dehydrated and was admitted for IV hydration. Her nausea was controlled with antiemetics and this will be continued. She states she simply want to get a good night sleep when I talked to her. She had multiple chronic concerns which appear to be stable. See ED note for review. Patient does have frequent hospitalizations and presently does not appear to have any active infection but will be hydrated with IV fluids. She also will have to be watched for alcohol withdrawal. Review of systems positive for her chronic complaints which appear to be stable mostly pertaining to her abdomen and recurrent uncontrolled emesis. She denied any hematemesis. She states that she has poor bowel movements I think indicating mostly constipation that she has poor intake. He does live alone. She is a DNR/DNI. Review of Systems Narrative: 13 point review of systems otherwise unrevealing or stable. [facility] Medical History Alcohol abuse (Chronic) Alcoholic ketosis (Resolved) Allergic rhinitis (Chronic) Anemia (Chronic 12/20/16) Back pain, chronic (Chronic) Cataract (Chronic 11/07/15) Cervical radicular pain (Chronic) neck pain and [facility] Chronic alcoholic gastritis (Chronic 10/12/17) pls refrain from alcohol Corneal ulcer, right (Inactive ~08/23/18) 08/23/18; [facility]- Depression (Chronic) Elev transaminase/LDH (Chronic) due to alcohol Falling (Chronic) Genital herpes simplex (Chronic) recurrent gential; suppressive Valtrex GERD (gastroesophageal reflux disease) (Chronic) GI bleed (Chronic 12/20/16) Headache (Chronic) Hyperlipidemia (Chronic) Hypertension (Chronic) high today; she will check readings at home 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 Multiple rib fractures (Acute) 03/11/19 [facility] Non-cardiac chest pain (Chronic 09/21/16) [facility] 09/21/16 NEGATIVE MP Osteoarthritis (Chronic) Osteopenia (Chronic) 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) Pleural effusion on left (Chronic) 03/11/19 [facility] Right rib fracture (Resolved) Sciatica (Chronic) right, epidural injuections [facility] Tendinitis of left rotator cuff (Inactive) Tubular adenoma of colon (Chronic 01/28/17) Urinary incontinence (Chronic) 01/24/13 urethral suspension and sling at [facility] (bladder suspension 1991) Wernicke encephalopathy (Chronic) Surgical History Bladder Surgery suspension Colonoscopy - [facility] (01/28/17) EGD - [facility] (12/20/16) Ligation of fallopian tube Repair bladder injury, simple Family History Mother No problems noted. Father , DROWNED at age 50. No problems noted. Sister Personal history of malignant neoplasm MELANOMA Sister No problems noted. Grandfather Personal history of malignant neoplasm STOMACH Grandfather Personal history of malignant neoplasm PROSTATE Grandmother Heart disease [place] Acute ill-defined cerebrovascular disease Grandmother Personal history of malignant neoplasm UTERINE Aunt , [place] Heart disease [place] Aunt , [place] Heart disease Brother No problems noted. Social History Smoking/Tobacco Use Status: Former Tobacco Use Alcohol Intake: current Alcohol Intake frequency: 3 or more drinks per day Alcohol type: hard liquor Drug use: Never Substance use type: does not use Details: Patient states her last alcohol intake was 2 days ago 05/19/19-pt states last drink was weeks ago Do you feel safe at home: Yes Do you feel safe in your relationship?: Yes Additional Social history: my caregiver is an anxiety attack person Meds Home Medications and Allergies Home Medications Medication Instructions Recorded Confirmed Type folic acid 1 mg PO DAILY #14 tab 08/11/18 06/30/19 Rx lidocaine 5 % topical patch 1 patch TP DAILY 04/10/19 06/30/19 History pantoprazole 40 mg PO DAILY@0730 #0 tab 04/17/19 06/30/19 Rx gabapentin 300 mg capsule 300 mg PO BID #90 cap 04/27/19 06/30/19 Rx metoprolol tartrate 50 mg tablet 50 mg PO BID #60 tab 04/27/19 06/30/19 Rx multivitamin [Multiple Vitamins] 1 tab PO DAILY #0 tab 05/03/19 06/30/19 Rx magnesium oxide [MagOx] 400 mg PO BID #30 tab 05/21/19 06/30/19 Rx hydrochlorothiazide 12.5 mg tablet 12.5 mg PO DAILY #90 tab 06/08/19 06/30/19 Rx carboxymethylcellulose sodium 1 drp OU Q4H WHILE AWAKE #30 each 06/20/19 06/30/19 Rx [Refresh Plus] fluticasone propionate 1 spray NS DAILY #15.8 ml 06/20/19 06/30/19 Rx ibuprofen [IBU] 600 mg PO TID PRN PRN #30 tab 06/20/19 06/30/19 Rx ipratropium-albuterol 0.5 mg-3 3 ml IH QID PRN #90 ml 06/27/19 06/30/19 Rx mg(2.5 mg base)/3 mL nebulization soln venlafaxine 150 mg 150 mg PO DAILY #30 cap 06/27/19 06/30/19 Rx capsule,extended release 24 hr venlafaxine 37.5 mg 37.5 mg PO DAILY #30 cap 06/27/19 06/30/19 Rx capsule,extended release 24 hr amlodipine 10 mg tablet 10 mg PO DAILY #90 tab 06/28/19 06/30/19 Rx thiamine mononitrate (vit B1) 100 100 mg PO DAILY #90 tab 06/28/19 06/30/19 Rx mg tablet Allergies Allergy/AdvReac Type Severity Reaction Status Date / Time Penicillins Allergy Mild Rash Verified 06/30/19 16:04 ramipril Allergy Unknown ITCHING Verified 06/30/19 16:04 meperidine [From Demerol] AdvReac Severe Nausea Verified 06/30/19 16:04 bupropion AdvReac Mild GI upset Verified 06/30/19 16:04 AMBER Inhibitors AdvReac Unknown COUGH Verified 06/30/19 16:04 alendronate sodium AdvReac Unknown GI Distress Verified 06/30/19 16:04 clarithromycin AdvReac Unknown intolerant Verified 06/30/19 16:04 paroxetine AdvReac Unknown Diarrhea Verified 06/30/19 16:04 Exam Narrative Exam Narrative: General: Patient is in moderate distress and has slow and monotonous speech. She is alert and oriented at least to person and place. She is wearing a right eye patch for a chronic cornea abrasion. She does have good eye contact but flattened affect. She is in moderate distress from her nausea and abdominal discomfort. HEENT: Normocephalic with right eye patch in place, left eye with pupil reactive, sclera anicteric and extraocular movement intact. Ears normal. Oropharynx with dry mucosa. Neck: Supple without JVD. Back: Stooped posture with no CVA tenderness. Lungs: Decreased breath sounds both bases with coarse crackles just above the bases and of bronchovesicular breath sounds diffusely with decreased aeration. No expiratory wheeze focalizing rales. No rhonchi. Heart: Regular rate and rhythm no appreciable murmur or gallop. Breast: Exam deferred. Abdomen: Obese contour, soft palpation noted with no palpable hepatomegaly but more comfortable to palpation over the right more than left upper quadrant with slight guarding. No rebound. No tympany. Bowel sounds positive in all quadrants but decreased in the upper abdomen. Genitalia and rectal: Deferred. Extremities: Without clubbing, cyanosis or edema with movement of all extremities without restriction. Skin: Warm, dry and slightly pale with multiple tattoos over her extremities and trunk. No rashes noted. Neuro: Cranial nerves II through XII grossly intact, no focalizing motor deficits. Sensory grossly intact. Psych: Depressed mood with flattened affect but normal memory remote and recent. She ruminates over her somatic complaints and failing body. Results Imaging Imaging Studies: Exam(s) PROCEDURE INFORMATION: Exam: XR Chest, 2 Views Exam date and time: 06/30/2019 16:27 Clinical history: 74 years old, female; Cough TECHNIQUE: Imaging protocol: XR of the chest Views: 2 views. COMPARISON: CR XR CHEST 2V PA LATERAL 06/19/2019 15:51 FINDINGS: Lungs: Subsegmental atelectasis in the left lung base. Mild generalized vascular congestion in the setting of low lung volumes. Pleural space: A small left pleural effusion appears similar, better demonstrated on CT. Heart/Mediastinum: Mild cardiomegaly. Bones/joints: Multiple nonacute-appearing rib fractures are again seen. Other findings: Chronic appearing ostial lysis of both clavicles again seen. IMPRESSION: 1. A small left pleural effusion appears similar, better demonstrated on CT. 2. Subsegmental atelectasis in the left lung base. 3. Mild generalized vascular congestion in the setting of low lung volumes. Dictated and Authenticated by: Yadira Hernandez MD. Exam(s) PROCEDURE INFORMATION: Exam: CT Angiography Chest With Contrast Exam date and time: 06/30/2019 17:51 Clinical history: 74 years old, female; Other: Ruq pain; Other: Elevated d dimer TECHNIQUE: Imaging protocol: Computed tomographic angiography of the chest with intravenous contrast. 3D rendering: MIP reconstructed images were created and reviewed. COMPARISON: CT CHEST PE CTA 05/19/2019 22:34 FINDINGS: Pulmonary arteries: No pulmonary emboli. Aorta: Redemonstration of mild dilation of the ascending aorta, 37 x 40 mm with no dissection or evidence of rupture. Normal caliber of the descending aorta. Lungs: Focal groundglass nodule in the right lung apex approximately 10 mm similar to the previous study however warrants followup. Mostly dependent subsegmental atelectasis similar to the previous study. Pleural space: Similar small slightly loculated appearing left pleural effusion. No pneumothorax. Heart: Redemonstration of moderate cardiomegaly. Lymph nodes: No enlarged lymph nodes. Bones/joints: Multiple bilateral rib fractures appearing subacute to chronic are again seen. No definite acute rib fractures are identified. Mild loss of height in inferior T12 endplate, could be acute to subacute. Additional minor areas of loss of height in the thoracic spine appear likely nonacute. Soft tissues: No suspicious lesions. IMPRESSION: 1. No pulmonary emboli are seen. 2. Similar small slightly loculated appearing left pleural effusion. 3. Focal groundglass nodule in the right lung apex approximately 10 mm similar to the previous study however warrants followup. 4. Mostly dependent subsegmental atelectasis similar to the previous study. 5. Mild loss of height in inferior T12 endplate, could be acute to subacute. 6. Incidental findings as described. PROCEDURE INFORMATION: Exam: CT Abdomen And Pelvis With Contrast Exam date and time: 06/30/2019 17:51 Clinical history: 74 years old, female; Other: Ruq pain; Other: Elevated d dimer TECHNIQUE: Imaging protocol: Computed tomography of the abdomen and pelvis with intravenous contrast. 3D rendering: MIP reconstructed images were created and reviewed. COMPARISON: CT CHEST PE CTA 05/19/2019 22:34 FINDINGS: Liver: The liver appears mildly fatty. No hepatic masses. Gallbladder and bile ducts: No calcified stones. No ductal dilation. Pancreas: No ductal dilation. No masses. Spleen: No splenomegaly or focal lesions. Adrenals: Slightly nodular appearance of the left adrenal gland could represent small adenomas. Follow-up as per institutional protocol. No acute pathology in the right adrenal gland. Kidneys and ureters: Multiple benign-appearing renal cysts and probable cysts. Stomach and bowel: No obstruction. No mucosal thickening. Appendix: No evidence of appendicitis. Intraperitoneal space: No free air. No significant fluid collection. Vasculature: No abdominal aortic aneurysm. Lymph nodes: No significantly enlarged lymph nodes. Bladder: Unremarkable as visualized. Reproductive: Moderate amount of fluid in the vagina. Slightly heterogeneous uterus could represent uterine fibroids. Bones/joints: Significant multilevel degenerative changes in the lumbar spine with likely degenerative anterolisthesis L4 over L5. No acute fracture or subluxation. Mild lumbar levoscoliosis. Soft tissues: Soft tissue nodule left subcutaneous flank at the level of the iliac crest, could reflect medication injection however consider clinical correlation. Cluster of soft tissue nodules in the right low pelvis, 3 x 4 cm. IMPRESSION: 1. Cluster of soft tissue nodules in the right low pelvis, 3 x 4 cm. the etiology is uncertain however malignancy must be considered. 2. Moderate amount of fluid in the vagina. 3. Additional findings as described. Dictated and Authenticated by: Yadira Hernandez MD. Labs Result diagrams: 06/30/19 16:05 06/30/19 16:05 Labs: Laboratory Results - last 24 hr 06/30/19 06/30/19 06/30/19 16:05 16:05 16:05 WBC 6.87 RBC 3.76 L Hgb 11.4 L Hct 34.8 L MCV 92.6 MCH 30.3 MCHC 32.8 RDW 16.4 H Plt Count 298 MPV 8.5 Immature Gran % 0.3 Neutrophils % 81.3 Lymphocytes % 7.9 Monocytes % 10.3 Eosinophils % 0.1 Basophils % 0.1 Absolute Neutrophils 5.58 Absolute Lymphocytes 0.54 L Absolute Monocytes 0.71 H Absolute Eosinophils 0.01 Absolute Basophils 0.01 D-Dimer Sodium 137 Potassium 2.8 L* Chloride 95 L Carbon Dioxide 28.9 Anion Gap 13.1 H BUN 9 Creatinine 0.77 Estimated GFR/1.73 m2 >= 60.00 Glucose 178 H Lactate 2.4 H* Calcium 10.0 Magnesium 1.2 L Total Bilirubin 1.7 H AST 27 ALT 35 Alkaline Phosphatase 143 H Troponin I < 0.05 NT-Pro-B Natriuret Pep Total Protein 7.7 Albumin 3.9 Ethyl Alcohol < 3.0 06/30/19 06/30/19 16:05 16:26 WBC RBC Hgb Hct MCV MCH MCHC RDW Plt Count MPV Immature Gran % Neutrophils % Lymphocytes % Monocytes % Eosinophils % Basophils % Absolute Neutrophils Absolute Lymphocytes Absolute Monocytes Absolute Eosinophils Absolute Basophils D-Dimer 789 H Sodium Potassium Chloride Carbon Dioxide Anion Gap BUN Creatinine Estimated GFR/1.73 m2 Glucose Lactate Calcium Magnesium Total Bilirubin AST ALT Alkaline Phosphatase Troponin I NT-Pro-B Natriuret Pep 848 H Total Protein Albumin Ethyl Alcohol Last Vital Signs Temp 37.1 C 06/30/19 16:00 Pulse 106 H 06/30/19 17:30 Resp 20 06/30/19 18:20 BP 147/89 H 06/30/19 17:30 Pulse Ox 95 06/30/19 18:20
[2019-06-30] MEDS: Normal Saline 1,000 ML 125 ML IV (19:20)
[2019-06-30 19:33] LABS: Troponin I < 0.05 ng/mL (0.00-0.06)
[2019-06-30 19:53] LABS: Prothrombin Time 10.1 sec (9.3-11.0)
[2019-06-30 19:54] LABS: PHOSPHORUS 2.5 mg/dL (2.6-4.7)
[2019-06-30 20:05] LABS: TSH (W/Ref FT4) 0.27 uIU/mL (0.36-3.74)
[2019-06-30 20:23] LABS: FREE T4 1.22 ng/dL (0.76-1.46)
[2019-06-30] MEDS: POTASSIUM CHLORIDE/0.9% NACL 1,000 ML 125 MEQ IV (21:51)
[2019-06-30] MEDS: Metoprolol 50 MG TAB PO (21:51)
[2019-06-30] MEDS: Heparin 5,000 UNITS/ML VIAL 5000 UNITS SC (21:52)
[2019-06-30] MEDS: Acetaminophen 325 MG TAB 650 MG PO (21:52)
[2019-06-30] MEDS: Gabapentin 300 MG CAP PO (21:52)
[2019-06-30] MEDS: Magnesium Oxide 400 MG TAB PO (21:52)
[2019-06-30] MEDS: Refresh PLUS Eye Drops 0.4ml 1 EACH OU (23:04)
[2019-07-01] VITALS (20 sets, daily range): BP systolic 138–173; BP diastolic 81–104; PULSE 80–132; RESP 14–36; TEMP 36.4–39.8; O2SAT 88–99
[2019-07-01] MEDS: Ondansetron 4 MG/2 ML VIAL IVP (00:49)
[2019-07-01] MEDS: Normal Saline 50 ML 200 ML (00:51)
[2019-07-01] MEDS: LORazepam 0.5 MG TAB PO (01:11)
[2019-07-01] MEDS: Refresh PLUS Eye Drops 0.4ml 1 EACH OU ×6 (04:11→23:52)
[2019-07-01] MEDS: POTASSIUM CHLORIDE/0.9% NACL 1,000 ML 125 MEQ IV (05:12)
[2019-07-01] MEDS: Heparin 5,000 UNITS/ML VIAL 5000 UNITS SC ×3 (05:56→21:20)
[2019-07-01 07:49] LABS: HCT 33.4 % (36.0-46.0); HGB 10.4 g/dL (12.0-15.5); Mean Corp. HGB Concentration 31.1 g/dL (32.0-36.0); Mean Corpuscular Volume 96.3 fL (80-95); Mean Platelet Volume 8.9 fL (8.0-11.0); Platelet Count 212 x1000/uL (130-400); RBC 3.47 m/cumm (4.00-5.20); RBC Distribution Width 16.5 % (11.7-14.6); White Blood Cell Count 2.96 k/cumm (4.4-10.8)
[2019-07-01] MEDS: Lidocaine 5% Patch 1 PATCH TP (07:49)
[2019-07-01] MEDS: Venlafaxine 150 MG CAPCR PO (07:51)
[2019-07-01] MEDS: LORazepam 1 MG TAB PO/SL ×4 (07:51→23:53)
[2019-07-01] MEDS: Venlafaxine 37.5 MG CAPCR PO (07:51)
[2019-07-01] MEDS: Gabapentin 300 MG CAP PO ×2 (07:51→19:28)
[2019-07-01] MEDS: Thiamine 100 MG TAB PO (07:51)
[2019-07-01] MEDS: Pantoprazole 40 MG TABCR PO (07:52)
[2019-07-01] MEDS: Magnesium Oxide 400 MG TAB PO ×2 (07:52→19:28)
[2019-07-01] MEDS: amLODIPine 10 MG TAB PO (07:52)
[2019-07-01] MEDS: Multivitamin TAB 1 TAB PO (07:52)
[2019-07-01] MEDS: Metoprolol 50 MG TAB PO ×2 (07:52→19:27)
[2019-07-01] MEDS: Folic Acid 1 MG TAB PO (07:52)
[2019-07-01 08:13] LABS: ALT 33 U/L (14-59); AST 38 U/L (15-37); Albumin 3.1 g/dL (3.4-5.0); Alkaline Phosphatase 114 U/L (46-116); Anion Gap 9.9 mmol/L (3-11); BUN 4 mg/dL (7-18); Bilirubin, Total 1.7 mg/dL (0.2-1.0); CO2 27.1 mmol/L (21.0-32.0); CREATININE 0.76 mg/dL (0.55-1.02); Chloride 105 mmol/L (98-107); Glucose 113 mg/dL (70-100); Magnesium 1.6 mg/dL (1.8-2.4); Potassium 3.3 mmol/L (3.5-5.1); Sodium 142 mmol/L (136-145); Total Protein 6.4 g/dL (6.4-8.2)
[2019-07-01 08:42] LABS: Lactate 1.3 mmol/L (0.6-1.4)
[2019-07-01] MEDS: POTASSIUM CHLORIDE 20 MEQ/100 ML BAG 50 MEQ IVPB ×2 (11:27→13:24)
[2019-07-01] MEDS: MAGNESIUM SULFATE 2 GM/50 ML BAG IVPB (11:28)
--- NOTE | 2019-07-01 11:44 | PHARADMIT ---
Addendum entered by Holly Stephenson 07/05/19 15:05: Pharmacy Note Subjective Feels better, nauseous when taking meds, reports headache Objective BP 155/103, Mag 1.8, C-Reactive Protein 1.81 Assessment Vanc and Ceftriaxone day 5, mag bolus - has been needing daily Plan Ceftriaxone dose decreased to 1gram Addendum entered by Jillian Murillo 07/03/19 14:35: Pharmacy Note Subjective pt working with PT and OT Objective K WNL, Mag 1.7 Assessment Mag bolus ordered, new BC no growth 24 hours vanco and ceftriaxone continue (day 3) Plan possibly order vanco trough tomorrow Addendum entered by Licha Atkinson 07/02/19 14:55: Pharmacy Note Subjective Objective BP-159/100 other VS okay CIWA-0 Tmax-39.8 overnight procalcitonin-1.7 Assessment blood cultures- possible contaminant; repeat blood cultures pending IV magnesium and PO potassium replacement given IV fluids discontinued vanco and ceftriaxone continue (day 2) extrapolated vanco trough came back at 15.1 (still not at steady state). continue current dose with estimated trough of 16.9 Plan watch for results of repeat blood cultures Original Note: Admission Pharmacy Clinical Review DEHYDRATION WITH EMESIS, HYPOKALEMIA, ALCOHOLISM (?Aspiration) Code Status DNR/DNI Current Weight 64.6 kg Renally Cleared and Narrow Therapeutic Index Meds CrCl~47ml/min QTc Value / Action Taken QTC 487 (Effexor/Zofran) BP Control, Fever BP 151/84 Afebrile Electrolytes reviewed K+ 3.3, Mag 1.6 (both being replaced with bolus' and KCL in IVF) also Mag ox DVT Prophylaxis Heparin SC Opiate Usage / Scheduled Bowel Regimen Ordered Plt/SCr for Heparin / Enoxaparin Plt 212 SCr 0.76 INR for Warfarin H/H stable, WBC/Bands H;/H 10.4/33.4 WBC 2.96 Antibiotic appropriateness Rocephin & Vancomycin started 07/01/19 Cultures and Sensitivities POSITIVE BLOOD CULTURES 07/01/19 Surgical ABX d/c within 24 hr DM control / Insulin Dosing Heart Failure (Check EF%) (AMBER's, B-Block, Diuretics) Amlodipine, Metoprolol IV to PO Switch Home Meds Reviewed Home Meds Not Ordered Flonase, Vit D, HCTZ, Ibuprofen, Duoneb, Naltrexone, Vit B6, Ranitidine Comments CIWA: 1 (Lorazepam ordered) Chest Xray/CT: no PE, small left pleural effusion Previous admission just ~ 10 days ago for Sepsis/Pneumonia
--- NOTE | 2019-07-01 12:07 | PGE_ITS ---
Date of Service Date of service: 07/01/19 Time of Service: 12:07 Assessment and Plan Assessment and plan (1) Positive blood culture: Status: Acute Assessment and plan: 09/01 cx from admission are positive. ?contaminant. Check UA/C&S now. Start empiric vancomycin and high dose ceftriaxone. Repeat blood cultures in am. Consider thoracenthesis of the small loculated pleural effusion on the L - could be the source of infection if blood culture is real. (2) Emesis, persistent: Status: Resolved Assessment and plan: Suspect alcoholic gastritis. No evidence of an obstructive process on CT. Continue PPI, add carafate. (3) Hypoxia: Status: Resolved Assessment and plan: Due to atelectasis, medications for alcohol withdrawal, or aspiration. Monitor respiratory status. Encourage IS. Imaging negative for pneumonia on admission - repeat in am. (4) Atelectasis of left lung: Status: Acute Assessment and plan: Due to known L-sided rib fractures (old). Provide IS. Encourage ambulation. (5) Loculated pleural effusion: Status: Acute Assessment and plan: As above - if blood culture is real, consider thoracenthesis. (6) Alcohol withdrawal: Status: Acute Assessment and plan: Monitor on CIWA with prn PO ativan. Continue PO thiamine, multivitamins. Qualifiers: Complication of substance-induced condition: uncomplicated Qualified Code(s): F10.230 - Alcohol dependence with withdrawal, uncomplicated (7) Hypomagnesemia: Status: Acute Assessment and plan: Replete and recheck in am (8) Hypokalemia: Status: Acute Assessment and plan: Replete and recheck in am (9) Discharge planning issues: Status: Acute Assessment and plan: DNR/DNI Only has a classified copy control clerk 2 hours a day (10) DVT prophylaxis: Status: Acute Assessment and plan: Heparin SC. Subjective Subjective Interval history since last seen: Leitcia reports a 7/10 headache this morning, her chronic L-sided rib pain, shortness of breath, cough productive of white sputum. She reports a band-like pain around the middle of her abdomen. Denies nausea/vomiting this morning. She thinks there was blood in her urine this morning, but denies dysuria. Her CIWA score was 8 this morning requiring 2 mg of PO ativan. This did improve her symptoms. She states that her classified copy control clerk comes in for 2 hours a day only and that she does not stay with her. Exam Narrative Exam Narrative: Genera: Frail elderly female, laying comfortably in bed, not visibly tachypenic/dyspneic, A&OX3, answers my questions appropriately, not visibly tremulous HEENT: EOMI, MMM Heart: RRR, no m/r/g Lungs: Diminished breath sounds B anteriorly GI: abdomen is soft, nontender to palpation that I can appreciate Extremities: no e/c/c BLE's Objective Objective Clinical Data: Abnormal lab results 06/30/19 06/30/19 06/30/19 Range/Units 16:05 16:05 16:05 WBC (4.4-10.8) k/cumm RBC 3.76 L (4.00-5.20) m/cumm Hgb 11.4 L (12.0-15.5) g/dL Hct 34.8 L (36.0-46.0) % MCV (80-95) fL MCHC (32.0-36.0) g/dL RDW 16.4 H (11.7-14.6) % Absolute Lymphocytes 0.54 L (1.2-3.4) k/cumm Absolute Monocytes 0.71 H (0.11-0.7) k/cumm D-Dimer (<500) ng/mlFEU Potassium 2.8 L* (3.5-5.1) mmol/L Chloride 95 L (98-107) mmol/L Anion Gap 13.1 H (3-11) mmol/L BUN (7-18) mg/dL Glucose 178 H (70-100) mg/dL Lactate 2.4 H* (0.6-1.4) mmol/L Phosphorus (2.6-4.7) mg/dL Magnesium 1.2 L (1.8-2.4) mg/dL Total Bilirubin 1.7 H (0.2-1.0) mg/dL AST (15-37) U/L Alkaline Phosphatase 143 H (46-116) U/L NT-Pro-B Natriuret Pep ( - 299) pg/mL Albumin (3.4-5.0) g/dL TSH (0.36-3.74) uIU/mL 06/30/19 06/30/1919 Range/Units 16:05 16:26 19:06 WBC (4.4-10.8) k/cumm RBC (4.00-5.20) m/cumm Hgb (12.0-15.5) g/dL Hct (36.0-46.0) % MCV (80-95) fL MCHC (32.0-36.0) g/dL RDW (11.7-14.6) % Absolute Lymphocytes (1.2-3.4) k/cumm Absolute Monocytes (0.11-0.7) k/cumm D-Dimer 789 H (<500) ng/mlFEU Potassium (3.5-5.1) mmol/L Chloride (98-107) mmol/L Anion Gap (3-11) mmol/L BUN (7-18) mg/dL Glucose (70-100) mg/dL Lactate (0.6-1.4) mmol/L Phosphorus (2.6-4.7) mg/dL Magnesium (1.8-2.4) mg/dL Total Bilirubin (0.2-1.0) mg/dL AST (15-37) U/L Alkaline Phosphatase (46-116) U/L NT-Pro-B Natriuret Pep 848 H ( - 299) pg/mL Albumin (3.4-5.0) g/dL TSH 0.27 L (0.36-3.74) uIU/mL 06/30/19 07/01/19 07/01/19 Range/Units 19:06 07:10 07:10 WBC 2.96 L D (4.4-10.8) k/cumm RBC 3.47 L (4.00-5.20) m/cumm Hgb 10.4 L (12.0-15.5) g/dL Hct 33.4 L (36.0-46.0) % MCV 96.3 H D (80-95) fL MCHC 31.1 L (32.0-36.0) g/dL RDW 16.5 H (11.7-14.6) % Absolute Lymphocytes (1.2-3.4) k/cumm Absolute Monocytes (0.11-0.7) k/cumm D-Dimer (<500) ng/mlFEU Potassium 3.3 L (3.5-5.1) mmol/L Chloride (98-107) mmol/L Anion Gap (3-11) mmol/L BUN 4 L (7-18) mg/dL Glucose 113 H (70-100) mg/dL Lactate (0.6-1.4) mmol/L Phosphorus 2.5 L (2.6-4.7) mg/dL Magnesium 1.6 L (1.8-2.4) mg/dL Total Bilirubin 1.7 H (0.2-1.0) mg/dL AST 38 H (15-37) U/L Alkaline Phosphatase (46-116) U/L NT-Pro-B Natriuret Pep ( - 299) pg/mL Albumin 3.1 L (3.4-5.0) g/dL TSH (0.36-3.74) uIU/mL Vital Signs Temperature 37.1 C 07/01/19 09:54 Temperature Source Tympanic 07/01/19 09:54 Pulse 80 07/01/19 09:54 Pulse Rhythm Regular 07/01/19 00:17 Pulse 100 H 06/30/19 19:10 Respiratory Rate 20 07/01/19 09:54 Respiratory Effort Non-Labored 07/01/19 00:17 Respiratory Depth Normal 07/01/19 00:17 Respiratory Pattern Normal 07/01/19 00:17 Blood Pressure 151/84 H 07/01/19 09:54 Blood Pressure Mean 103 06/30/19 17:30 Blood Pressure Position Supine 06/30/19 16:00 Pulse Oximetry 95 07/01/19 11:03 Oxygen Delivery Method Nasal Cannula 07/01/19 11:03 Oxygen Flow Rate 1.5 07/01/19 11:03 Pain Level 2 07/01/19 09:54 Comment 07/01/19 04:00 Intake & Output 07/01/19 07/01/19 07/01/19 00:59 11:59 23:59 Intake Total Output Total Balance Weight Intake: IV Oral Output: Urine Other: Urine Color Urine Appearance Urine Odor Comment Emesis Description Voiding Methods Laboratory Results WBC 2.96 k/cumm (4.4-10.8) L D 07/01/19 07:10 RBC 3.47 m/cumm (4.00-5.20) L 07/01/19 07:10 Hgb 10.4 g/dL (12.0-15.5) L 07/01/19 07:10 Hct 33.4 % (36.0-46.0) L 07/01/19 07:10 MCV 96.3 fL (80-95) H D 07/01/19 07:10 MCH 30.0 pg (27.0-33.0) 07/01/19 07:10 MCHC 31.1 g/dL (32.0-36.0) L 07/01/19 07:10 RDW 16.5 % (11.7-14.6) H 07/01/19 07:10 Plt Count 212 x1000/uL (130-400) 07/01/19 07:10 MPV 8.9 fL (8.0-11.0) 07/01/19 07:10 Immature Gran % 0.3 06/30/19 16:05 Neutrophils % 81.3 06/30/19 16:05 Lymphocytes % 7.9 06/30/19 16:05 Monocytes % 10.3 06/30/19 16:05 Eosinophils % 0.1 06/30/19 16:05 Basophils % 0.1 06/30/19 16:05 Absolute Neutrophils 5.58 k/cumm (1.2-6.7) 06/30/19 16:05 Absolute Lymphocytes 0.54 k/cumm (1.2-3.4) L 06/30/19 16:05 Absolute Monocytes 0.71 k/cumm (0.11-0.7) H 06/30/19 16:05 Absolute Eosinophils 0.01 k/cumm (0.0-0.7) 06/30/19 16:05 Absolute Basophils 0.01 k/cumm (0.0-0.2) 06/30/19 16:05 PT 10.1 sec (9.3-11.0) 06/30/19 16:30 INR 1.0 (0.9-1.1) 06/30/19 16:30 D-Dimer 789 ng/mlFEU (<500) H 06/30/19 16:26 Sodium 142 mmol/L (136-145) 07/01/19 07:10 Potassium 3.3 mmol/L (3.5-5.1) L 07/01/19 07:10 Chloride 105 mmol/L (98-107) 07/01/19 07:10 Carbon Dioxide 27.1 mmol/L (21.0-32.0) 07/01/19 07:10 Anion Gap 9.9 mmol/L (3-11) 07/01/19 07:10 BUN 4 mg/dL (7-18) L 07/01/19 07:10 Creatinine 0.76 mg/dL (0.55-1.02) 07/01/19 07:10 Estimated GFR/1.73 m2 >= 60.00 (mL/min/1.73m2) 07/01/19 07:10 Glucose 113 mg/dL (70-100) H 07/01/19 07:10 Lactate 1.3 mmol/L (0.6-1.4) 07/01/19 08:32 Calcium 9.0 mg/dL (8.5-10.1) 07/01/19 07:10 Phosphorus 2.5 mg/dL (2.6-4.7) L 06/30/19 19:06 Magnesium 1.6 mg/dL (1.8-2.4) L 07/01/19 07:10 Total Bilirubin 1.7 mg/dL (0.2-1.0) H 07/01/19 07:10 AST 38 U/L (15-37) H 07/01/19 07:10 ALT 33 U/L (14-59) 07/01/19 07:10 Alkaline Phosphatase 114 U/L (46-116) 07/01/19 07:10 Troponin I < 0.05 ng/mL (0.00-0.06) 06/30/19 19:08 NT-Pro-B Natriuret Pep 848 pg/mL (-299) H 06/30/19 16:05 Total Protein 6.4 g/dL (6.4-8.2) 07/01/19 07:10 Albumin 3.1 g/dL (3.4-5.0) L 07/01/19 07:10 TSH 0.27 uIU/mL (0.36-3.74) L 06/30/19 19:06 Free T4 1.22 ng/dL (0.76-1.46) 06/30/19 19:06 Ethyl Alcohol < 3.0 mg/dL (<3) 06/30/19 16:05 Blood culture 06/30/19: 1/4 bottles with GPC's in clusters
--- NOTE | 2019-07-01 12:19 | PDOC.CMIN ---
- If Service Date Differs Date of service: 07/01/19 Time of Service: 12:19 Care Management Initial Assess REASON FOR HOSPITALIZATION:: Dehydration with emesis, hypokalemia PAST MEDICAL HISTORY/PAST SURGICAL HISTORY:: Medical: Alcohol abuse (Chronic), Alcoholic ketosis (Resolved), Allergic rhinitis (Chronic), Anemia (Chronic 12/20/16); Back pain, chronic (Chronic). Cataract (Chronic 11/07/15); Cervical radicular pain (Chronic); Chronic alcoholic gastritis (Chronic 10/12/17); Depression (Chronic); Elev transaminase/LDH (Chronic),Falling (Chronic), Genital herpes simplex (Chronic); GERD (gastroesophageal reflux disease) (Chronic); GI bleed (Chronic 12/20/16); Headache (Chronic); Hyperlipidemia (Chronic); Hypertension (Chronic); Macrocytosis (Chronic 09/26/14); Multiple rib fractures (Acute); Non-cardiac chest pain (Chronic 09/21/16); Osteoarthritis (Chronic); Osteopenia (Chronic); 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). Pleural effusion on left (Acute); Right rib fracture (Resolved); Sciatica (Chronic); Tubular adenoma of colon (Chronic 01/28/17); Urinary incontinence (Chronic); Wernicke encephalopathy (Chronic). Surgical: Bladder Surgery; Colonoscopy - MAC (01/28/17); EGD - MAC (12/20/16); Ligation of fallopian tube; Repair bladder injury, simple PREVIOUS FUNCTIONAL STATUS/SOCIAL/FAMILY SUPPORTS:: Leticia lives alone at her home in [place] with her dog. She has a caregiver, Armida (cell: [phone]; home: [phone]), who assists her with med management and homemaking. She is otherwise independent with ADL's. Leticia also mentioned her son, Bennie who is a strong support, but lives in [place]. She does not drive, but uses [facility] to travel locally. CURRENT FUNCTIONAL STATUS:: Leticia was lying in bed when CM met with her. She reported that she is not feeling well as she is very n[place] and has not been able to keep anything down, which is why she came to the ED. She stated that she would like to be well enough to be home with her dog. CM asked if Leticia felt like she would benefit from a short rehab stay, which Leticia stated she would consider. CM will continue to follow. ADVANCE DIRECTIVES:: None on file, but there is a durable POA, naming Clarence Garza as agent. Has patient been provided with information about the portal?: Yes Did the patient sign up for the portal?: Yes CODE STATUS:: DNR/DNI INSURANCE COVERAGE / FINANCIAL ISSUES:: Commercial MCR replacement. Financial Assist 70%. CURRENT HOME/COMMUNITY SERVICES/EQUIPMENT:: Leticia has a caregiver, Armida, who assists with her med management and home making. She also has current home health services. She owns a FWW. PRIMARY CARE PHYSICIAN:: Lavelle Galindo POTENTIAL DISCHARGE NEEDS:: Evaluations for further needs, follow up appointments. PATIENT/FAMILY EDUCATION NEEDS:: Review of community supports, discharge plan, discussion of self care needs upon discharge, including Ask Me Three. ANTICIPATED BARRIERS TO DISCHARGE:: None identified at this time. TRANSPORTATION:: [employer] private vehicle, coordinated by CM. PLAN:: Anticipate Leticia will return home when medically cleared with a resumption of services- nursing, PT & OT. CM to coordinate transportation via [facility]. CM will continue to support Leticia with decision making regarding discharge planning. Readmission - Within the Past 30 Days Yes or No: Y - Date of First Admission Date of 1st Admission: 06/10/19 - Date of this Admission Date of Admission: 06/30/19 This admission was: Through ED - Office Visit Since 1st Admission Have you seen your PCP in the office since discharge?: Yes Date of PCP Appointment: 06/27/2019 - I. Interview patient and/or Family Difficulty reaching your doctor or getting an office appt?: No Have you had trouble purchasing/ or taking medication?: No Have you had trouble with getting meals at home?: No Did you feel ready for discharge when you left the last time: Yes Were services received that you thought were set up on disch: Yes What services were received?: HH RN, PT, OT. Did you call your physician beore you came to the ED?: No How do you think you became sick enough to come back?: Leticia reported that she could not keep anything down, which is why she came to the ED. - If the patient had a VNA ordered Did the patient have a VNA order?: Yes Did you call the VNA before you came?: No - ED visits How many ED visits in the past 12 months: 22 - Assessment for Readmission Summary of readmission circumstances, based upon interviews: Leticia felt that she was ready for discharge, but that she may have benefitted from a short rehab stay, which CM had discussed with her prior to discharge. She did receive VNA services which were ordered, and she did see her PCP for her follow up.
[2019-07-01] MEDS: cefTRIAXone 2 GM/50 ML BAG IVPB (12:28)
[2019-07-01] MEDS: Acetaminophen 325 MG TAB 650 MG PO ×2 (12:29→20:18)
[2019-07-01 12:30] LABS: Bilirubin Negative (Negative); Blood Negative (Negative); Clarity Clear (Clear); Glucose Negative (Negative); Ketones Negative (Negative); Leukocyte Esterase Negative (Negative); Nitrite Negative (Negative); Specific Gravity 1.015 (1.005-1.025); Urobilinogen 0.2 EU/dL (Up TO 0.2); pH 7.5 (5-8)
[2019-07-01] MEDS: POTASSIUM CHLORIDE/0.9% NACL 1,000 ML 100 MEQ IV (15:41)
[2019-07-01] MEDS: Sucralfate 1 GM TAB PO ×2 (16:59→21:20)
[2019-07-01] MEDS: VANCOMYCIN 750 MG in Normal Saline 250 ML 250 MG IV (20:15)
[2019-07-01] MEDS: Normal Saline Flush 10 ML SYR IVP ×2 (20:17→22:32)
--- NOTE | 2019-07-01 22:00 | NUR.NOTE ---
Nursing Note: This nurse went into this patients room around 1930 when report for shift change was completed. Upon initial assessment it was noted the patient had a fever, was tachycardic and tachypneic. Patient stated she feels short of breath and like she can not take in a good breath. Patients color looks very poor and pale. Patient was very hot to the touch, Crackles noted in bases of bilat lungs. CIWA assessment performed and medicated per protocol. CCRN Rita was notified, then MD was called. Blood cultures were obtained, antibiotic given early per MD, acetaminophen given. Patients temp continued to rise along with respiratory rate, still remaining tachycardic. MD was contacted again and ordered ibuprofen, morphine and lasix. Will continue to monitor.
[2019-07-01] MEDS: Ibuprofen 400 MG TAB PO (22:13)
[2019-07-01] MEDS: Furosemide 20 MG/2 ML VIAL IVP (22:33)
[2019-07-01] MEDS: MORPHine 2 MG/ML SYR IVP (22:35)
[2019-07-02] VITALS (15 sets, daily range): BP systolic 134–164; BP diastolic 76–102; PULSE 79–111; RESP 17–28; TEMP 36.5–38.6; O2SAT 96–99
[2019-07-02] MEDS: Albuterol 2.5 MG/3 ML INH SOLN VIAL UPD (00:03)
[2019-07-02] MEDS: POTASSIUM CHLORIDE/0.9% NACL 1,000 ML 100 MEQ IV (02:30)
[2019-07-02] MEDS: Acetaminophen 325 MG TAB 650 MG PO ×2 (06:13→21:30)
[2019-07-02] MEDS: Heparin 5,000 UNITS/ML VIAL 5000 UNITS SC ×3 (06:13→21:30)
--- NOTE | 2019-07-02 06:58 | DI.VRAD_ITS ---
PROCEDURE INFORMATION: Exam: XR Chest, 1 View Exam date and time: 07/02/2019 6:24 AM Clinical history: 74 years old, female; Other: Concern for aspiration pneumonia TECHNIQUE: Imaging protocol: XR of the chest Views: 1 view. COMPARISON: CR XR CHEST 2V PA LATERAL 06/30/2019 5:09 PM FINDINGS: Tubes, catheters and devices: Monitoring leads project over the chest. Lungs: Mild central vascular congestion. No overt pulmonary edema. No consolidative pneumonia. Minimal basilar atelectasis not excluded. Pleural space: Pleural thickening/reaction laterally on the left. No significant effusion or pneumothorax. Heart/Mediastinum: Mild cardiomegaly. Vasculature: Atherosclerotic calcification within a tortuous aorta. Bones/joints: Mild degenerative changes noted throughout the spine. Multiple left-sided rib fractures again demonstrated. IMPRESSION: Mild cardiomegaly with central vascular congestion. No overt edema or consolidative pneumonia. Minimal basilar atelectasis. Relatively stable appearance allowing for differences in technique. Dictated and Authenticated by: Angelito Arciniega MD. Ordering:JENNIE Ruffin MD
[2019-07-02 07:39] LABS: Lactate 1.1 mmol/L (0.6-1.4)
[2019-07-02 07:40] LABS: Abs Immature Grans 0.01 k/cumm (0.0-0.09); Absolute Basophil Count 0.01 k/cumm (0.0-0.2); Absolute Eosinophil Count 0.25 k/cumm (0.0-0.7); Absolute Lymphocyte Count 0.52 k/cumm (1.2-3.4); Absolute Monocyte Count 0.01 k/cumm (0.11-0.7); Basophils % 0.1; Eosinophils % 3.6; HCT 30.4 % (36.0-46.0); HGB 9.6 g/dL (12.0-15.5); Immature Grans % 0.1; Lymphocytes % 7.5; Mean Corp. HGB Concentration 31.6 g/dL (32.0-36.0); Mean Corpuscular Hemoglobin 30.1 pg (27.0-33.0); Mean Corpuscular Volume 95.3 fL (80-95); Mean Platelet Volume 8.5 fL (8.0-11.0); Monocytes % 0.1; Neutrophils % 88.6; Platelet Count 168 x1000/uL (130-400); RBC 3.19 m/cumm (4.00-5.20); White Blood Cell Count 6.94 k/cumm (4.4-10.8)
[2019-07-02 07:45] LABS: Absolute Neutrophil Count 6.15 k/cumm (1.2-6.7)
--- NOTE | 2019-07-02 07:50 | OTIE_ITS ---
Occupational Therapy Notes Inpatient Occupational Therapy Evaluation Date: 07/02/19 Referring Doctor:Laly Dumont MD OT Orders: Eval and Treat Precautions: Fall, Standard PATIENT PROFILE/ADMITTING DIAGNOSIS: Pt is a 74 year old female who was admitted through the ER on 06/30/19 for c/o nausea, vomiting and diarrhea. She was admitted to [facility] for hypomagnesemia, alcohol abuse, alcohol widthdrawal, hypokalemia, and dehydration. Pt was recently admitted to [facility] and was discharged on 06/20/19 after being admitted for several days for sepsis, p enumonia and AMBER. After pt was discharged she returned home and reports that she drank 3 drinks of whiskey per day. Past Medical History: Medical History Alcohol abuse (Chronic) Alcoholic ketosis (Resolved) Allergic rhinitis (Chronic) Anemia (Chronic 12/20/16) Back pain, chronic (Chronic) Cataract (Chronic 11/07/15) Cervical radicular pain (Chronic) Chronic alcoholic gastritis (Chronic 10/12/17) Depression (Chronic) Elev transaminase/LDH (Chronic) Falling (Chronic) Genital herpes simplex (Chronic) GERD (gastroesophageal reflux disease) (Chronic) GI bleed (Chronic 12/20/16) Headache (Chronic) Hyperlipidemia (Chronic) Hypertension (Chronic) Macrocytosis (Chronic 09/26/14) Multiple rib fractures (Acute) Non-cardiac chest pain (Chronic 09/21/16) Osteoarthritis (Chronic) Osteopenia (Chronic) 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) Pleural effusion on left (Acute) Right rib fracture (Resolved) Sciatica (Chronic) Tubular adenoma of colon (Chronic 01/28/17) Urinary incontinence (Chronic) Wernicke encephalopathy (Chronic) Surgical History Bladder Surgery Colonoscopy - MAC (01/28/17) EGD - MAC (12/20/16) Ligation of fallopian tube Repair bladder injury, simple Social History/Home Situation: Pt reports that she was discharged from the [facility] and rehab in [place] March. She reports that she lives in a private home and has a caregiver who comes into the home 2 hours per day. She reports that her caregiver (A) with laundry, grocery shopping and homecare tasks. Pt states that she takes a shower 2x per week. She states that she has a shower seat and what she considers a regular shower. She has a regular toilet and grab bars near her shower but they are removeable. She states that otherwise she feels she is (I) and is able to wash and dress herself. She states that she sometimes has difficulty with LE dressing but this comes and goes she states that she never knows how the day will be. She has a dog that she cares for and she reports that she is eager to return home. Equipment owned/DME: grab bars, shower seat, FWW SUBJECTIVE: Pt was sitting in bed when OT arrived. She was agreeable to OT session. OBJECTIVE: General Observation: BP (B) UE, telemetry, IV (R) UE Mental Status: A&Ox3 Pain: c/o pain in back ROM: RUE AROM WFL L UE AROM WFL with limited shoulder flexion to 110* STRENGTH: RUE Shoulder flexion 3-/5, bicep 3/5, tricep 3-/5, energy systems laboratory director is weak and symmetrical LUE Shoulder flexion 3-/5, bicep 3/5, tricep 3-/5, energy systems laboratory director is weak and symmetrical FUNCTIONAL MOBILITY/ADLS: Transfers with FWW Supine-sit (S) Sit-Stand vc throughout for hand placement, CGA Bed-Commode CGA, FWW min vc throughout and cues for reaching for commode when sitting down DRESSING Dressing- sitting on side of bed pt was min (A) with [facility] gown, mod (A) don and doffing (B) socks. Bathing- sitting on side of the bed with max (A) set up, (I) with (B) UE, denies washing hair, (I) abdomen and mod (A) washing (B) feet. Grooming- Sitting on side of the bed (I) with brushing hair TOILETING on commode min vc for toileting hygiene although pt was able to perform this (I) with vc. BALANCE: Static sitting Normal Dynamic Sitting Good Static Standing Good Dynamic Standing Good SPECIAL TESTS: Daily Activity Limitations Standardized Measure [facility] AM -PAC ?6 clicks? Daily Activity Inpatient Short Form: Raw score: 20 Standardized score: 42.03 CMS score: 38.32% INFORMED CONSENT/EDUCATION: Pt instructed in purpose of OT Consult and plan of care. ASSESSMENT: Patient is a 74-year-old female referred to occupational therapy services with diagnosis of hypomagnesia, alcohol abuse, alcohol widthdrawal, hypokalemia, nausea, vomiting and dehydration. Patient presents with clinical signs and symptoms consistent with dx, as demonstrated by the following impairment level findings/functional limitations: Decreased functional activity tolerance, decreased (I) in her ADL/IADL routines, decreased functional mobility, decreased safety awareness, high risk of re-admission . Pt would benefit from skilled OT services for increased (I) in her ADL routines, education on adaptive equipment and education on energy conservation techniques. AMPAC score 20, CMS score 38.32% Patient is assessed as a Moderate 80444 complexity based on the following: History: See Above Examination: See functional limitations as noted above Presentation: Evolving Decision Making: AMPAC score 20, CMS score 38.32% GOALS 1. Transfers- (S), FWW 2. Dressing sitting on side of bed (I) with UE don and doffing shirt, (I) with don and doffing pants 3. Bathing sitting on side of bed (I) UE/LE 4. Toileting on commode (I) 5. Eating (I) 6. Grooming- standing at sink pt will be able to stand at sink with FWW (I) with brushing teeth PLAN OF CARE/TREATMENT PLAN: 1x/day, 5 days/ week x 1week Initiate Occupational Therapy Services for bathing, dressing, grooming, toileting, eating, transfer training. DISCHARGE RECOMMENDATIONS SNF based on pts current functional level of status and decreased overall safety awareness, OT will continue to assess pts functional (I) and make recommendations as needed. TREATMENT TIME/MINUTES/CODES 49786, 36 minutes (07:10) [facility]
[2019-07-02 08:10] LABS: Diff Comment Agrees w/ Instrument; Hypochromasia 2+; Polychromasia Present
[2019-07-02 08:11] LABS: Poikilocytes 1+
[2019-07-02] MEDS: Multivitamin TAB 1 TAB PO (08:16)
[2019-07-02] MEDS: Venlafaxine 150 MG CAPCR PO (08:16)
[2019-07-02] MEDS: Metoprolol 50 MG TAB PO ×2 (08:16→21:31)
[2019-07-02] MEDS: Lidocaine 5% Patch 1 PATCH TP (08:16)
[2019-07-02] MEDS: amLODIPine 10 MG TAB PO (08:16)
[2019-07-02] MEDS: Refresh PLUS Eye Drops 0.4ml 1 EACH OU ×3 (08:16→17:04)
[2019-07-02] MEDS: Gabapentin 300 MG CAP PO ×2 (08:16→21:31)
[2019-07-02] MEDS: Sucralfate 1 GM TAB PO ×4 (08:17→21:31)
[2019-07-02] MEDS: Folic Acid 1 MG TAB PO (08:17)
[2019-07-02] MEDS: Thiamine 100 MG TAB PO (08:17)
[2019-07-02] MEDS: Venlafaxine 37.5 MG CAPCR PO (08:17)
[2019-07-02] MEDS: Ibuprofen 400 MG TAB PO (08:17)
[2019-07-02] MEDS: Pantoprazole 40 MG TABCR PO (08:17)
[2019-07-02] MEDS: Magnesium Oxide 400 MG TAB PO ×2 (08:17→21:31)
[2019-07-02 08:24] LABS: AST 27 U/L (15-37); Albumin 3.2 g/dL (3.4-5.0); Alkaline Phosphatase 114 U/L (46-116); Anion Gap 10.4 mmol/L (3-11); BUN 5 mg/dL (7-18); Bilirubin, Total 1.1 mg/dL (0.2-1.0); CO2 26.6 mmol/L (21.0-32.0); CREATININE 0.88 mg/dL (0.55-1.02); Chloride 103 mmol/L (98-107); Glucose 115 mg/dL (70-100); Magnesium 1.6 mg/dL (1.8-2.4); Potassium 3.5 mmol/L (3.5-5.1); Sodium 140 mmol/L (136-145); Total Protein 6.7 g/dL (6.4-8.2)
[2019-07-02 08:25] LABS: ALT 32 U/L (14-59); Bilirubin, Direct 0.26 mg/dL (0.00-0.20); C-Reactive Protein 7.92 mg/dL (0.0-0.3); Lipase 37 U/L (73-393)
--- NOTE | 2019-07-02 08:30 | DI.RAD_ITS ---
EXAM: XR PORTABLE CHEST AP INDICATION: concern for aspiration pneumonia. COMPARISON: XR CHEST 2V PA LATERAL from 06/30/2019 TECHNIQUE: 2D digital imaging was performed. FINDINGS: The heart is enlarged, unchanged. The aorta is again noted to be tortuous. Leads overlie the chest. There are old bilateral rib fractures. No infiltrate, effusion or pulmonary edema seen. IMPRESSION: No acute abnormality.
[2019-07-02] MEDS: VANCOMYCIN 750 MG in Normal Saline 250 ML 250 MG IV ×2 (08:51→18:03)
[2019-07-02 09:01] LABS: Procalcitonin 1.7 ng/mL
--- NOTE | 2019-07-02 10:16 | IN_ITS ---
Date of service: 07/02/19 Time of Service: 09:35 PT Notes Physical Therapy Inpatient Evaluation Date: 07/02/2019 Referring Doctor: Laly Dumont MD PT Orders: PT CONSULT: Eval/Treat for limited ability.? Precautions: Fall. Standard. Activity as tolerated. Patient Profile/Admitting Diagnosis: Patient is a 74-year-old female with past medical history significant for ETOH abuse, back pain, depression, and frequent falling who presented to the ED 06/30/2019 9 with chief complaints of nausea, vomiting, diarrhea. Patient is diagnosed with emesis, dehydration, EtOH withdrawal, and hypokalemia. PMHX: Medical History Alcohol abuse (Chronic) Alcoholic ketosis (Resolved) Allergic rhinitis (Chronic) Anemia (Chronic 12/20/16) Back pain, chronic (Chronic) Cataract (Chronic 11/07/15) Cervical radicular pain (Chronic) Chronic alcoholic gastritis (Chronic 10/12/17) Depression (Chronic) Elev transaminase/LDH (Chronic) Falling (Chronic) Genital herpes simplex (Chronic) GERD (gastroesophageal reflux disease) (Chronic) GI bleed (Chronic 12/20/16) Headache (Chronic) Hyperlipidemia (Chronic) Hypertension (Chronic) Macrocytosis (Chronic 09/26/14) Multiple rib fractures (Acute) Non-cardiac chest pain (Chronic 09/21/16) Osteoarthritis (Chronic) Osteopenia (Chronic) 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) Pleural effusion on left (Acute) Right rib fracture (Resolved) Sciatica (Chronic) Tubular adenoma of colon (Chronic 01/28/17) Urinary incontinence (Chronic) Wernicke encephalopathy (Chronic) Surgical History Bladder Surgery Colonoscopy - MAC (01/28/17) EGD - MAC (12/20/16) Ligation of fallopian tube Repair bladder injury, simple Social History/Home Situation: Leticia reports that she lives in a private home in [place]. She has a caregiver who comes in daily 5 days per week for 2 hours each time to assist with laundry, minor house chores, and grocery shopping. Patient is independent with MRADLs using a straight cane. She has a walker which she states she does not use often. She receives meals on wheels. She no longer drives. She was recently discharged from this hospital on 06/18/2019 at independent with a straight cane for all level surface ambulation. Equipment Owned/DME: FWW, SC, grab bars, emergency alert device Subjective: Patient is agreeable to a PT evaluation and treatment today. She did report being more comfortable with using the straight cane during walking activity than the FWW. She denies headache, dizziness, and chest pain throughout PT session. Objective: General Observation: Leticia was seen sitting on her recliner upon arrival of this PT and student PT. Bilateral TEDS in legs. Telemetry monitoring in place. Mental Status: Alert and oriented x 4 Pain: Patient reported back discomfort upon sitting up at edge of bed that subsided with activity. ROM: Right Lower Extremity: Hip flexion WFL. Hip abduction WFL. Knee flexion WFL. Ankle dorsiflexion WFL. Ankle plantarflexion WFL. Left Lower Extremity: Hip flexion WFL. Hip abduction WFL. Knee flexion WFL. Ankle dorsiflexion WFL. Ankle plantarflexion WFL. Strength (assessed in supine): Right Lower Extremity: Hip flexors 3+/5. Knee extensors 4/5. Ankle dorsiflexors 5/5. Ankle plantarflexors 5/5. Left Lower Extremity: Hip flexors 3+/5. Knee extensors 4/5. Ankle dorsiflexors 5/5. Ankle plantarflexors 5/5. Bed Mobility/Transfers: Rolling SBA Supine to sit SBA Sit to supine SBA Sit to stand CGA Stand to sit CGA Bed to chair CGA Chair to bed CGA Gait: Patient exhibited reciprocal gait for 15 feet x 2 feet using a FWW with mild breathlessness after activity. She appeared to have decreased step length. Balance: Static Sitting: Normal Dynamic Sitting: Normal Static Standing: Fair Dynamic Standing: Fair Special Tests: Mobility Limitations Standardized Measure [facility] AM-PAC 6 clicks Basic Mobility Inpatient Short Form: Raw Score: 20 CMS Score: 36 % deficit Informed Consent/Education: Patient instructed in purpose of PT consult and plan of care. Assessment: Patient is a 74-year-old female presenting with emesis, dehydration, EtOH withdrawal, and hypokalemia with impairments and functional limitations listed below requiring skilled PT services at the SNF. Patient has had multiple readmissions to this hospital related to ETOH abuse and may benefit from SNF placement on discharge in order to have a better prognosis and to decrease falls. Patient was given advice about said recommendation but continues to be firm about going home. His prognosis for going home is poor. Patient presents with clinical signs and symptoms consistent with current/admitting diagnoses that have resulted to mobility limitations, gait instability, generalized weakness, and impairment of motor control as demonstrated by the following impairment level findings: 1. Decreased strength to B LE major muscle groups 2. Impaired standing balance 3. Impaired activity tolerance Impairments are contributing to the following functional limitations: 1. Increased dependence with transfers 2. Inability to safely ambulate without assistive device and physical assistance 3. Increase completion time for mobility ADL performance 4. Increased fall risk 5. Inability to negotiate steps alone safely Patient is assessed as a 16955 moderate complexity based on the following: History: Patient is a 74-year-old female presenting with emesis, dehydration, EtOH withdrawal, and hypokalemia with impairments and functional limitations listed below requiring skilled PT services at the SNF Examination: Demonstrable impairment in strength, balance, and range of motion with underlying impairments and functional limitations as documented above Presentation: Evolving Decision Makin moderate complexity Goals: Goals X1 week 1. Supine-Sit independent 2. Sit-Supine independent 3. Sit-Stand independent 4. Stand-Sit independent 5. Bed-Chair independent 6. Chair-Bed independent 7. Independent gait on level surface with use of straight cane for at least 300 feet without report of pain nor dyspnea 8. Independent stair negotiation while holding onto bilateral rails for at least 5 steps without report of pain nor dyspnea 9. Independent with home exercise program 10. Good static and dynamic standing balance/tolerance DISCHARGE RECOMMENDATIONS: Patient is recommended to be discharged to a SNF with continued PT treatment and use of SC during ambulatory activities. TREATMENT CODE/TIME: 57697 x 27 minutes beginning at 9:35 AM. Thank you very much for this referral. Tawana Cruz PT, DPT, CLT [facility]
[2019-07-02] MEDS: MAGNESIUM SULFATE 2 GM/50 ML BAG IVPB (12:12)
[2019-07-02] MEDS: cefTRIAXone 2 GM/50 ML BAG IVPB (12:25)
--- NOTE | 2019-07-02 12:31 | PGE_ITS ---
Date of Service Date of service: 07/02/19 Time of Service: 12:31 Assessment and Plan Assessment and plan (1) Positive blood culture: Status: Acute Assessment and plan: 2/ cx from admission are positive for coag negative staph. The patient states she does not have any implants or metal in her. She did have quite a fever last night, has an elevated CRP and procalcitonin, and is known to have a loculated left pleural effusion. There is no evidence of an active intraabdominal infectious process - denies diarrhea. No UTI per UA. Continue empiric antibiotics (vancomycin, high dose ceftriaxone day 2) and consult surgery for a possible thoracenthesis if the pleural effusion is big enough. Blood cultures recollected today. Trend ESR/CRP. I doubt that alcohol withdrawal alone is cause for the fever due to elevated procalcitonin and CRP. (2) Fever of unknown origin: Status: Acute Assessment and plan: As above. (3) Emesis, persistent: Status: Resolved Assessment and plan: Suspect alcoholic gastritis. No evidence of an obstructive process on CT. Continue PPI, carafate. I am also concerned about development of C.Diff, so monitor for diarrhea. (4) Hypoxia: Status: Resolved Assessment and plan: Due to atelectasis, medications for alcohol wit hdrawal. Aspiration less likely given absence of findings on CXR. Monitor respiratory status. Encourage IS. (5) Atelectasis of left lung: Status: Acute Assessment and plan: Due to known L-sided rib fractures (old). Provide IS. Encourage ambulation. (6) Loculated pleural effusion: Status: Acute Assessment and plan: As above - obtaining surgical consult for a possible thoracenthesis. (7) Alcohol withdrawal: Status: Acute Assessment and plan: Monitor on CIWA with prn PO ativan. Continue PO thiamine, multivitamins. 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 Subjective Subjective Interval history since last seen: Mr Kayla states that she is not in pain, has a cough productive of clear sputum, denies dizziness, chest pain. Endorses nausea this morning with her medications, but that it had resolved, and she was able to tolerate both breakfast and lunch. It does not burn to urinate. Denies sore throat. She was febrile up to 39.8 overnight. CIWA score of 3 overnight. Exam Narrative Exam Narrative: Genera: Frail elderly female, laying comfortably in bed, not tremulous, looks exhausted, A&OX3 HEENT: EOMI, MMM Heart: RRR, no m/r/g Lungs: crackles at B bases. GI: abdomen is soft, nontender to palpation that I can appreciate Extremities: no e/c/c BLE's Objective Objective Clinical Data: Abnormal lab results 07/02/19 07/02/19 07/02/19 Range/Units 07:30 07:30 07:30 RBC 3.19 L (4.00-5.20) m/cumm Hgb 9.6 L (12.0-15.5) g/dL Hct 30.4 L (36.0-46.0) % MCV 95.3 H (80-95) fL MCHC 31.6 L (32.0-36.0) g/dL RDW 16.0 H (11.7-14.6) % Absolute Lymphocytes 0.52 L (1.2-3.4) k/cumm Absolute Monocytes 0.01 L (0.11-0.7) k/cumm BUN 5 L (7-18) mg/dL Glucose 115 H (70-100) mg/dL Magnesium 1.6 L (1.8-2.4) mg/dL Total Bilirubin 1.1 H (0.2-1.0) mg/dL Conjugated Bilirubin 0.26 H (0.00-0.20) mg/dL C-Reactive Protein 7.92 H (0.0-0.3) mg/dL Albumin 3.2 L (3.4-5.0) g/dL Lipase 37 L (73-393) U/L Vital Signs Temperature 36.8 C 07/02/19 10:00 Temperature Source Tympanic 07/02/19 10:00 Pulse 82 07/02/19 10:00 Pulse Rhythm Regular 07/02/19 09:04 Pulse 100 H 06/30/19 19:10 Respiratory Rate 19 07/02/19 10:00 Respiratory Effort Non-Labored 07/02/19 09:04 Respiratory Depth Shallow 07/02/19 09:04 Respiratory Pattern Normal 07/02/19 09:04 Blood Pressure 162/98 H 07/02/19 10:00 Blood Pressure Mean 103 06/30/19 17:30 Blood Pressure Position Supine 06/30/19 16:00 Pulse Oximetry 99 07/02/19 10:00 Oxygen Delivery Method Nasal Cannula 07/02/19 10:00 Oxygen Flow Rate 1 07/02/19 10:00 Pain Level 6 07/02/19 10:00 Comment 07/02/19 06:05 Intake & Output 07/01/19 07/02/19 07/02/19 23:59 11:59 23:59 Intake Total 1807.5 / 3897.5 1750 / 1750 Output Total 570 / 970 100 / 100 Balance 1237.5 / 2927.5 1650 / 1650 Weight 65.2 kg Intake: IV 1567.5 / 2567.5 1000 / 1000 Oral 240 / 1330 750 / 750 Output: Urine 570 / 970 100 / 100 Other: Urine Color Yellow Yellow Urine Appearance Clear Clear Urine Odor Normal Normal Comment Grossly incontinent of urine pt was incontinent Voiding Methods Bedside Commode Diaper Incontinent Laboratory Results WBC 6.94 k/cumm (4.4-10.8) D 07/02/19 07:30 RBC 3.19 m/cumm (4.00-5.20) L 07/02/19 07:30 Hgb 9.6 g/dL (12.0-15.5) L 07/02/19 07:30 Hct 30.4 % (36.0-46.0) L 07/02/19 07:30 MCV 95.3 fL (80-95) H 07/02/19 07:30 MCH 30.1 pg (27.0-33.0) 07/02/19 07:30 MCHC 31.6 g/dL (32.0-36.0) L 07/02/19 07:30 RDW 16.0 % (11.7-14.6) H 07/02/19 07:30 Plt Count 168 x1000/uL (130-400) 07/02/19 07:30 MPV 8.5 fL (8.0-11.0) 07/02/19 07:30 Immature Gran % 0.1 07/02/19 07:30 Neutrophils % 88.6 07/02/19 07:30 Lymphocytes % 7.5 07/02/19 07:30 Monocytes % 0.1 07/02/19 07:30 Eosinophils % 3.6 07/02/19 07:30 Basophils % 0.1 07/02/19 07:30 Absolute Neutrophils 6.15 k/cumm (1.2-6.7) 07/02/19 07:30 Absolute Lymphocytes 0.52 k/cumm (1.2-3.4) L 07/02/19 07:30 Absolute Monocytes 0.01 k/cumm (0.11-0.7) L 07/02/19 07:30 Absolute Eosinophils 0.25 k/cumm (0.0-0.7) 07/02/19 07:30 Absolute Basophils 0.01 k/cumm (0.0-0.2) 07/02/19 07:30 Differential Comment Agrees w/ instrument 07/02/19 07:30 RBC Morphology See below 07/02/19 07:30 Polychromasia Present 07/02/19 07:30 Hypochromasia 2+ 07/02/19 07:30 Poikilocytosis 1+ 07/02/19 07:30 PT 10.1 sec (9.3-11.0) 06/30/19 16:30 INR 1.0 (0.9-1.1) 06/30/19 16:30 D-Dimer 789 ng/mlFEU (<500) H 06/30/19 16:26 Sodium 140 mmol/L (136-145) 07/02/19 07:30 Potassium 3.5 mmol/L (3.5-5.1) 07/02/19 07:30 Chloride 103 mmol/L (98-107) 07/02/19 07:30 Carbon Dioxide 26.6 mmol/L (21.0-32.0) 07/02/19 07:30 Anion Gap 10.4 mmol/L (3-11) 07/02/19 07:30 BUN 5 mg/dL (7-18) L 07/02/19 07:30 Creatinine 0.88 mg/dL (0.55-1.02) 07/02/19 07:30 Estimated GFR/1.73 m2 >= 60.00 (mL/min/1.73m2) 07/02/19 07:30 Glucose 115 mg/dL (70-100) H 07/02/19 07:30 Lactate Cancelled 07/02/19 07:56 Calcium 9.0 mg/dL (8.5-10.1) 07/02/19 07:30 Phosphorus 2.5 mg/dL (2.6-4.7) L 06/30/19 19:06 Magnesium 1.6 mg/dL (1.8-2.4) L 07/02/19 07:30 Total Bilirubin 1.1 mg/dL (0.2-1.0) H 07/02/19 07:30 Conjugated Bilirubin 0.26 mg/dL (0.00-0.20) H 07/02/19 07:30 AST 27 U/L (15-37) 07/02/19 07:30 ALT 32 U/L (14-59) 07/02/19 07:30 Alkaline Phosphatase 114 U/L (46-116) 07/02/19 07:30 Troponin I < 0.05 ng/mL (0.00-0.06) 06/30/19 19:08 C-Reactive Protein 7.92 mg/dL (0.0-0.3) H 07/02/19 07:30 NT-Pro-B Natriuret Pep 848 pg/mL (-299) H 06/30/19 16:05 Total Protein 6.7 g/dL (6.4-8.2) 07/02/19 07:30 Albumin 3.2 g/dL (3.4-5.0) L 07/02/19 07:30 Lipase 37 U/L (73-393) L 07/02/19 07:30 Procalcitonin 1.7 ng/mL 07/02/19 07:30 TSH 0.27 uIU/mL (0.36-3.74) L 06/30/19 19:06 Free T4 1.22 ng/dL (0.76-1.46) 06/30/19 19:06 Urine Color Yellow (Yellow) 07/01/19 12:15 Urine Clarity Clear (Clear) 07/01/19 12:15 Urine pH 7.5 (5-8) 07/01/19 12:15 Ur Specific [place] 1.015 (1.005-1.025) 07/01/19 12:15 Urine Protein Negative mg/dL (Negative) 07/01/19 12:15 Urine Ketones Negative mg/dL (Negative) 07/01/19 12:15 Urine Blood Negative (Negative) 07/01/19 12:15 Urine Nitrite Negative (Negative) 07/01/19 12:15 Urine Bilirubin Negative (Negative) 07/01/19 12:15 Urine Urobilinogen 0.2 EU/dL (Up TO 0.2) 07/01/19 12:15 Ur Leukocyte Esterase Negative (Negative) 07/01/19 12:15 Urine Glucose Negative mg/dL (Negative) 07/01/19 12:15 Ethyl Alcohol < 3.0 mg/dL (<3) 06/30/19 16:05 CXR 07/02/19: No acute abnormality.
[2019-07-02] MEDS: Potassium Chloride 20 MEQ TABCR 40 MEQ PO (14:01)
--- NOTE | 2019-07-02 15:15 | PTTR_ITS ---
Date of service: 07/02/19 Time of Service: 13:22 PT Notes Physical therapy Inpatient Note Date: 07/02/2019 PRECAUTIONS: Fall. Standard. Activity as tolerated. SUBJECTIVE: Patient is agreeable to PT session. She reports dizziness during the first half of the ambulation activity which necessitated a seated rest. She reports feeling better this afternoon and that she had an okay lunch. OBJECTIVE: Patient seen lying in bed upon arrival of this PT. IV in R UE and LE. Bilateral TEDS on. Oxygen via NC at 1L/minute. PAIN: Minimal discomfort on back upon sitting up at edge of bed. BED MOBILITY/TRANSFERS Rolling SBA Supine to sit SBA Sit to supine SBA Sit to stand CGA Stand to sit CGA Bed to chair CGA GAIT Assistive Device: FWW Weight bearing: FWB Assist: CGA Distance: 80' x 2 Deviation: Decreased gait velocity, decreased step length/length, wheelchair follow required, complained of dizziness after the first half of ambulation activity requiring seated rest. Oxygen remained at 94% on 0.25 L/min of oxygen. ASSESSMENT: Patient continues to require skilled PT services in order to progress balance skills, mobility level, activity tolerance, and safety awareness. PLAN: Continue per PT POC. Patient will benefit from [facility] in order to progress mobility level, strength, and balance. TREATMENT CODE/TIME: 65563 x 29 minutes beginning at 13:22 PM.
--- NOTE | 2019-07-02 16:12 | PDOC.CMPRO ---
Care Management Progress Note S/O: Leticia was sleeping soundly when CM attempted to meet with her. CM met with Recovery Coaches who reported Leticia stated she was tired and would like to rest. Alex reports she will return tomorrow to meet with Leticia again. CM continues to follow. A: 74 year old female admitted to [facility] 06/30/19 for Dehydration with Emesis, Hypokalemia, Alcoholism P: Anticipate Leticia will return home when medically cleared with a resumption of services- RN. CAPO to coordinate transportation via [facility]. CM will continue to support Leticia with decision making regarding discharge planning.
[2019-07-02 16:33] LABS: Vancomycin, Trough 18.6 ug/mL (10.0-20.0)
[2019-07-02] MEDS: Normal Saline Flush 10 ML SYR IVP (17:04)
[2019-07-02] MEDS: LORazepam 1 MG TAB PO/SL (21:30)
[2019-07-03] VITALS (10 sets, daily range): BP systolic 134–166; BP diastolic 82–94; PULSE 78–87; RESP 16–18; TEMP 36.5–37.1; O2SAT 94–98
[2019-07-03] MEDS: Refresh PLUS Eye Drops 0.4ml 1 EACH OU ×5 (00:22→17:06)
[2019-07-03] MEDS: Normal Saline Flush 10 ML SYR IVP ×4 (04:40→19:43)
[2019-07-03] MEDS: VANCOMYCIN 750 MG in Normal Saline 250 ML 250 MG IV ×2 (04:40→15:22)
[2019-07-03] MEDS: Heparin 5,000 UNITS/ML VIAL 5000 UNITS SC ×3 (05:53→21:49)
[2019-07-03] MEDS: Acetaminophen 325 MG TAB 650 MG PO ×2 (06:45→10:16)
[2019-07-03 07:42] LABS: Abs Immature Grans 0.02 k/cumm (0.0-0.09); Absolute Basophil Count 0.01 k/cumm (0.0-0.2); Absolute Eosinophil Count 0.25 k/cumm (0.0-0.7); Absolute Monocyte Count 0.08 k/cumm (0.11-0.7); Absolute Neutrophil Count 2.45 k/cumm (1.2-6.7); Basophils % 0.3; Eosinophils % 7.1; HCT 28.6 % (36.0-46.0); Immature Grans % 0.6; Lymphocytes % 19.9; Mean Corp. HGB Concentration 31.5 g/dL (32.0-36.0); Mean Corpuscular Hemoglobin 29.9 pg (27.0-33.0); Mean Platelet Volume 9.1 fL (8.0-11.0); Monocytes % 2.3; Neutrophils % 69.8; Platelet Count 148 x1000/uL (130-400); RBC 3.01 m/cumm (4.00-5.20); RBC Distribution Width 15.7 % (11.7-14.6); White Blood Cell Count 3.51 k/cumm (4.4-10.8)
[2019-07-03 07:55] LABS: ALT 29 U/L (14-59); AST 25 U/L (15-37); Albumin 2.7 g/dL (3.4-5.0); Alkaline Phosphatase 101 U/L (46-116); Anion Gap 8.7 mmol/L (3-11); BUN 9 mg/dL (7-18); Bilirubin, Direct 0.12 mg/dL (0.00-0.20); Bilirubin, Total 0.5 mg/dL (0.2-1.0); C-Reactive Protein 6.01 mg/dL (0.0-0.3); CO2 26.3 mmol/L (21.0-32.0); CREATININE 0.71 mg/dL (0.55-1.02); Chloride 103 mmol/L (98-107); Glucose 103 mg/dL (70-100); Magnesium 1.7 mg/dL (1.8-2.4); Potassium 4.2 mmol/L (3.5-5.1); Sodium 138 mmol/L (136-145); Total Protein 6.1 g/dL (6.4-8.2)
[2019-07-03 08:27] LABS: Procalcitonin 0.2 ng/mL
[2019-07-03] MEDS: MAGNESIUM SULFATE 2 GM/50 ML BAG IVPB (08:57)
[2019-07-03] MEDS: Lidocaine 5% Patch 1 PATCH TP (08:57)
[2019-07-03] MEDS: Sucralfate 1 GM TAB PO ×4 (08:58→21:49)
[2019-07-03] MEDS: Gabapentin 300 MG CAP PO ×2 (08:58→19:42)
[2019-07-03] MEDS: Multivitamin TAB 1 TAB PO (08:58)
[2019-07-03] MEDS: Venlafaxine 37.5 MG CAPCR PO (08:58)
[2019-07-03] MEDS: Magnesium Chloride 64 MG TABCR PO ×2 (08:58→19:43)
[2019-07-03] MEDS: amLODIPine 10 MG TAB PO (08:58)
[2019-07-03] MEDS: Pantoprazole 40 MG TABCR PO (08:58)
[2019-07-03] MEDS: Folic Acid 1 MG TAB PO (08:58)
[2019-07-03] MEDS: Metoprolol 50 MG TAB PO ×2 (08:58→19:43)
[2019-07-03] MEDS: Venlafaxine 150 MG CAPCR PO (08:58)
[2019-07-03] MEDS: Thiamine 100 MG TAB PO (08:58)
--- NOTE | 2019-07-03 10:56 | OTTR_ITS ---
Date of service: 07/03/19 Time of Service: 10:10 Occupational Therapy Notes Occupational Therapy Inpatient Treatment Note Date: 07/03/19 PRECAUTIONS: Fall, Standard SUBJECTIVE: Pt was lying in bed when OT arrived. She was agreeable to OT session and reports that she is willing to participate in OT session. OBJECTIVE: PAIN:no c/o pain FUNCTIONAL MOBILITY Rolling L/R: (s) Supine-sit: (s) min vc Sit-stand: CGA Stand-sit: CGA, FWW Bed-Chair: CGA, FWW BATHING: With max (A) set up sitting in chair Upper Body: (I) with (B) UE with min vc Lower Body: Min (A) (B) LE with min vc DRESSING: Sitting in chair with min vc Upper Extremity: (I) [facility] and [facility] gown Lower Extremity: Min (A) don and doffing underwear, Mod (A) don and doffing (B) socks. GROOMING: Sitting in chair (I) with brushing hair TOILETING: Device: Commode Assist: (I) with toilet hygiene with min vc PLAN: Progress pt towards goals established at Initial evaluation. With increased (I) in dressing routine for (B) LE. TREATMENT CODES/TIME: 34394x6, 45 minutes (10:10) [facility]
[2019-07-03] MEDS: cefTRIAXone 2 GM/50 ML BAG IVPB (11:33)
--- NOTE | 2019-07-03 13:13 | PT.INTREAT ---
Date of service: 07/03/19 Time of Service: 11:30 PT Notes Inpatient Physical Therapy Treatment Note [facility] Date: 07/03/19 PRECAUTIONS: Fall SUBJECTIVE: Leticia is hesitant but agreeable to PT following some encouragement. She reports that she could only sit up in the chair for 15 minutes before it threw my back out. OBJECTIVE: PAIN: No c/o pain BED MOBILITY/TRANSFERS Supine-sit: I Sit-supine: I Sit-stand: SBA in a.m.; S p.m. Stand-sit: SBA in a.m.; S p.m. GAIT Assistive Device: FWW Weight bearing: Full Assist: SBA in the a.m.; S in p.m. Distance: 150' a.m.; 50' +200' in p.m. Deviation: Wheelchair follow in a.m. VITALS: SaO2: 96-97% on RA with gait training THEREX: Patient completed a LE strengthening and stabilization program, in a supine position in the a.m. and in seated position in p.m., as per flow sheet. STAIRS: Up/down 3?4 and 2?6 using B rails to step over pattern, independently TOILETING: Patient toileting with Min A ASSESSMENT: Patient tolerated sessions well without complaint. She was able to tolerate a progression in gait training, with FWW support and supervision. She would benefit from continued gait and transfer training for improved mobility and activity tolerance. PLAN: Continue with PT's POC TREATMENT CODE/TIME: Session 1: 25 minutes; 29642, [id number] Session 2: 35 minutes; 93607 ?2
--- NOTE | 2019-07-03 16:55 | PDOC.CMPRO ---
- If Service Date Differs Date of service: 07/03/19 Time of Service: 16:56 Care Management Progress Note S/O: Leticia was lying in bed when CM met with her. She was pleasant and engaged in conversation. She reported that she is scheduled for a test tomorrow so she will be at [facility] overnight at least. CM discussed the options of Leticia going from here to a facility for short term rehab, or to hire additional private caregivers in her home. Leticia reported that she doesn't have the money to hire more caregivers, and that she would prefer not to go to the [facility], but she would consider [facility]. CM will continue to follow. A: 74 year old female admitted to [facility] 06/30/19 for Dehydration with Emesis, Hypokalemia, Alcoholism P: Anticipate Leticia will return home when medically cleared with a resumption of services- RN. SCANLON to coordinate transportation via [facility]. CM will continue to support Leticia with decision making regarding discharge planning.
--- NOTE | 2019-07-03 17:00 | NUR.NOTE ---
attempted to place new IV site for NM scan tomorrow but was unable to get another IV access. Nursing Note:
[2019-07-03] MEDS: Ibuprofen 400 MG TAB PO (18:22)
--- NOTE | 2019-07-03 18:50 | PGE_ITS ---
Date of Service Date of service: 07/03/19 Time of Service: 18:50 Assessment and Plan Assessment and plan (1) Positive blood culture: Status: Acute Assessment and plan: 2/4 cx from admission are positive for coag negative staph. I believe these are contaminant. Repeat blood cultures are negative. There is one possibility, however, where these blood cultures could be represen tative of a real infection, and that is if she had an empyema - she does have a left loculated pleural effusion which is too small for thoracenthesis. WBC scan is ordered to help us figure out the source of fever. If positive, would need a transfer for VATS - [facility] is familiar with the patient's effusion; she had a chest tube there previously. Continue to trend CRP and procalcitonin. Continue empiric vancomycin, high dose ceftriaxone day 3) (2) Fever of unknown origin: Status: Acute Assessment and plan: As above. (3) Emesis, persistent: Status: Resolved Assessment and plan: Suspect alcoholic gastritis. No evidence of an obstructive process on CT. Continue PPI, carafate. I am also concerned about development of C.Diff, so monitor for diarrhea. (4) Hypoxia: Status: Resolved Assessment and plan: Due to atelectasis, medications for alcohol withdrawal. Aspiration less likely given absence of findings on CXR. Monitor respiratory status. Encourage IS. (5) Atelectasis of left lung: Status: Acute Assessment and plan: Due to known L-sided rib fractures (old). Provide IS. Encourage ambulation. (6) Loculated pleural effusion: Status: Acute Assessment and plan: As above - Too small for thoracenthesis. Obtain WBC scan - if lights up, will consult CT surgery for a possible VATS (at [facility]). (7) Alcohol withdrawal: Status: Acute Assessment and plan: Monitor on CIWA with prn PO ativan. CIWA scores zeros and 1s. Continue PO thiamine, multivitamins. Qualifiers: Complication of substance-induced condition: uncomplicated Qualified Code(s): F10.230 - Alcohol dependence with withdrawal, uncomplicated (8) Hypomagnesemia: Status: Acute Assessment and plan: Replete and recheck in am (9) Hypokalemia: Status: Acute Assessment and plan: Replete and recheck in am (10) Discharge planning issues: Status: Acute Assessment and plan: DNR/DNI Only has a director product management 2 hours a day (11) DVT prophylaxis: Status: Acute Assessment and plan: Heparin SC. Subjective Subjective Interval history since last seen: Leticia states that she feels dizzy and short of breath when she walks but not at rest. Denies chest pain. Had nausea after she took her medications (as always), but not right now. She is planned for a WBC scan tomorrow. Afebrile. Exam Narrative Exam Narrative: Genera: Frail elderly female, laying comfortably in bed, not tremulous, A&Ox3 HEENT: EOMI, MMM Heart: RRR, no m/r/g Lungs: crackles at B bases. GI: abdomen is soft, nontender to palpation that I can appreciate Extremities: no e/c/c BLE's Objective Objective Clinical Data: Abnormal lab results 07/03/19 07/03/19 Range/Units 07:25 07:25 WBC 3.51 L D (4.4-10.8) k/cumm RBC 3.01 L (4.00-5.20) m/cumm Hgb 9.0 L (12.0-15.5) g/dL Hct 28.6 L (36.0-46.0) % MCHC 31.5 L (32.0-36.0) g/dL RDW 15.7 H (11.7-14.6) % Absolute Lymphocytes 0.70 L (1.2-3.4) k/cumm Absolute Monocytes 0.08 L (0.11-0.7) k/cumm Glucose 103 H (70-100) mg/dL Magnesium 1.7 L (1.8-2.4) mg/dL C-Reactive Protein 6.01 H (0.0-0.3) mg/dL Total Protein 6.1 L (6.4-8.2) g/dL Albumin 2.7 L (3.4-5.0) g/dL Vital Signs Temperature 36.8 C 07/03/19 15:30 Temperature Source Tympanic 07/03/19 15:30 Pulse 78 07/03/19 15:30 Pulse Rhythm Regular 07/03/19 10:07 Pulse 100 H 06/30/19 19:10 Respiratory Rate 17 07/03/19 15:30 Respiratory Effort Non-Labored 07/03/19 10:07 Respiratory Depth Normal 07/03/19 10:07 Respiratory Pattern Normal 07/03/19 10:07 Blood Pressure 145/86 H 07/03/19 15:30 Blood Pressure Mean 103 06/30/19 17:30 Blood Pressure Position Supine 06/30/19 16:00 Pulse Oximetry 94 L 07/03/19 15:30 Oxygen Delivery Method Room Air 07/03/19 15:30 Oxygen Flow Rate 0 07/03/19 15:30 Pain Level 7 07/03/19 18:22 Comment 07/03/19 07:45 Intake & Output 07/02/19 07/03/19 07/03/19 23:59 11:59 23:59 Intake Total 3030 / 4780 1160 / 1640 480 / 1640 Output Total 600 / 700 100 / 100 Balance 2430 / 4080 1060 / 1540 480 / 1540 Weight 66.9 kg Intake: IV 1600 / 2600 270 / 270 Oral 1430 / 2180 890 / 1370 480 / 1370 Output: Urine 600 / 700 100 / 100 Other: Urine Color Yellow Yellow Urine Appearance Clear Clear Urine Odor Normal Normal Comment Grossly incontinent of urine Grossly incontinent of urine Stool Occult Blood Negative Stool Size Small Small Stool Characteristics Soft Soft Formed Formed Voiding Methods Diaper Incontinent Incontinent Laboratory Results WBC 3.51 k/cumm (4.4-10.8) L D 07/03/19 07:25 RBC 3.01 m/cumm (4.00-5.20) L 07/03/19 07:25 Hgb 9.0 g/dL (12.0-15.5) L 07/03/19 07:25 Hct 28.6 % (36.0-46.0) L 07/03/19 07:25 MCV 95.0 fL (80-95) 07/03/19 07:25 MCH 29.9 pg (27.0-33.0) 07/03/19 07:25 MCHC 31.5 g/dL (32.0-36.0) L 07/03/19 07:25 RDW 15.7 % (11.7-14.6) H 07/03/19 07:25 Plt Count 148 x1000/uL (130-400) 07/03/19 07:25 MPV 9.1 fL (8.0-11.0) 07/03/19 07:25 Immature Gran % 0.6 07/03/19 07:25 Neutrophils % 69.8 07/03/19 07:25 Lymphocytes % 19.9 07/03/19 07:25 Monocytes % 2.3 07/03/19 07:25 Eosinophils % 7.1 07/03/19 07:25 Basophils % 0.3 07/03/19 07:25 Absolute Neutrophils 2.45 k/cumm (1.2-6.7) 07/03/19 07:25 Absolute Lymphocytes 0.70 k/cumm (1.2-3.4) L 07/03/19 07:25 Absolute Monocytes 0.08 k/cumm (0.11-0.7) L 07/03/19 07:25 Absolute Eosinophils 0.25 k/cumm (0.0-0.7) 07/03/19 07:25 Absolute Basophils 0.01 k/cumm (0.0-0.2) 07/03/19 07:25 Differential Comment Agrees w/ instrument 07/02/19 07:30 RBC Morphology See below 07/02/19 07:30 Polychromasia Present 07/02/19 07:30 Hypochromasia 2+ 07/02/19 07:30 Poikilocytosis 1+ 07/02/19 07:30 PT 10.1 sec (9.3-11.0) 06/30/19 16:30 INR 1.0 (0.9-1.1) 06/30/19 16:30 D-Dimer 789 ng/mlFEU (<500) H 06/30/19 16:26 Sodium 138 mmol/L (136-145) 07/03/19 07:25 Potassium 4.2 mmol/L (3.5-5.1) 07/03/19 07:25 Chloride 103 mmol/L (98-107) 07/03/19 07:25 Carbon Dioxide 26.3 mmol/L (21.0-32.0) 07/03/19 07:25 Anion Gap 8.7 mmol/L (3-11) 07/03/19 07:25 BUN 9 mg/dL (7-18) 07/03/19 07:25 Creatinine 0.71 mg/dL (0.55-1.02) 07/03/19 07:25 Estimated GFR/1.73 m2 >= 60.00 (mL/min/1.73m2) 07/03/19 07:25 Glucose 103 mg/dL (70-100) H 07/03/19 07:25 Lactate Cancelled 07/02/19 07:56 Calcium 9.0 mg/dL (8.5-10.1) 07/03/19 07:25 Phosphorus 2.5 mg/dL (2.6-4.7) L 06/30/19 19:06 Magnesium 1.7 mg/dL (1.8-2.4) L 07/03/19 07:25 Total Bilirubin 0.5 mg/dL (0.2-1.0) 07/03/19 07:25 Conjugated Bilirubin 0.12 mg/dL (0.00-0.20) 07/03/19 07:25 AST 25 U/L (15-37) 07/03/19 07:25 ALT 29 U/L (14-59) 07/03/19 07:25 Alkaline Phosphatase 101 U/L (46-116) 07/03/19 07:25 Troponin I < 0.05 ng/mL (0.00-0.06) 06/30/19 19:08 C-Reactive Protein 6.01 mg/dL (0.0-0.3) H 07/03/19 07:25 NT-Pro-B Natriuret Pep 848 pg/mL (-299) H 06/30/19 16:05 Total Protein 6.1 g/dL (6.4-8.2) L 07/03/19 07:25 Albumin 2.7 g/dL (3.4-5.0) L 07/03/19 07:25 Lipase 37 U/L (73-393) L 07/02/19 07:30 Procalcitonin 0.2 ng/mL 07/03/19 07:25 TSH 0.27 uIU/mL (0.36-3.74) L 06/30/19 19:06 Free T4 1.22 ng/dL (0.76-1.46) 06/30/19 19:06 Urine Color Yellow (Yellow) 07/01/19 12:15 Urine Clarity Clear (Clear) 07/01/19 12:15 Urine pH 7.5 (5-8) 07/01/19 12:15 Ur Specific [place] 1.015 (1.005-1.025) 07/01/19 12:15 Urine Protein Negative mg/dL (Negative) 07/01/19 12:15 Urine Ketones Negative mg/dL (Negative) 07/01/19 12:15 Urine Blood Negative (Negative) 07/01/19 12:15 Urine Nitrite Negative (Negative) 07/01/19 12:15 Urine Bilirubin Negative (Negative) 07/01/19 12:15 Urine Urobilinogen 0.2 EU/dL (Up TO 0.2) 07/01/19 12:15 Ur Leukocyte Esterase Negative (Negative) 07/01/19 12:15 Urine Glucose Negative mg/dL (Negative) 07/01/19 12:15 Vancomycin Trough 18.6 ug/mL (10.0-20.0) 07/02/19 16:09 Ethyl Alcohol < 3.0 mg/dL (<3) 06/30/19 16:05
[2019-07-03] MEDS: LORazepam 1 MG TAB PO/SL (21:49)
[2019-07-04] VITALS (8 sets, daily range): BP systolic 132–158; BP diastolic 72–91; PULSE 68–100; RESP 14–20; TEMP 36.4–37; O2SAT 96–99
[2019-07-04] MEDS: Acetaminophen 325 MG TAB 650 MG PO ×2 (00:51→09:26)
[2019-07-04] MEDS: VANCOMYCIN 750 MG in Normal Saline 250 ML 250 MG IV ×3 (00:52→23:40)
[2019-07-04] MEDS: Normal Saline Flush 10 ML SYR IVP ×4 (00:53→23:40)
[2019-07-04] MEDS: Heparin 5,000 UNITS/ML VIAL 5000 UNITS SC ×3 (05:18→21:58)
--- NOTE | 2019-07-04 07:00 | DI.NM_ITS ---
EXAM: NM ABSCESS IMG WHOLE BODY GRP INDICATION: FEVER UNKNOWN ETIOLOGY COMPARISON: HEPATOBILIARY CCK from 12/23/2016 CT CHEST PE ABD PELVIS W from 06/30/2019 TECHNIQUE: Whole body white cell scanning was performed utilizing autologous white blood cells with 7.0 millicuries of Technetium 99 labeled cells. FINDINGS: Imaging was obtained at 1 hour and 4 hours post-injection. Typical white cell distribution noted. Additionally there is a focus of increased uptake in the presacral region just to the right of midli ne. 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 The findings of increased uptake at this site are nonspecific and may represent neopl astic process versus inflammatory process. No other suspicious focal abnormality seen. IMPRESSION: Increased uptake corresponding to presacral mass noted on recent CT, neoplastic versus infectious/inf lammatory process.
[2019-07-04 07:22] LABS: Abs Immature Grans 0.03 k/cumm (0.0-0.09); Absolute Basophil Count 0.01 k/cumm (0.0-0.2); Absolute Eosinophil Count 0.24 k/cumm (0.0-0.7); Absolute Lymphocyte Count 0.81 k/cumm (1.2-3.4); Absolute Monocyte Count 0.13 k/cumm (0.11-0.7); Absolute Neutrophil Count 2.09 k/cumm (1.2-6.7); Basophils % 0.3; Eosinophils % 7.3; HCT 30.1 % (36.0-46.0); HGB 9.5 g/dL (12.0-15.5); Immature Grans % 0.9; Lymphocytes % 24.5; Mean Corp. HGB Concentration 31.6 g/dL (32.0-36.0); Mean Platelet Volume 8.9 fL (8.0-11.0); Monocytes % 3.9; Neutrophils % 63.1; Platelet Count 197 x1000/uL (130-400); RBC 3.17 m/cumm (4.00-5.20); RBC Distribution Width 16.1 % (11.7-14.6); White Blood Cell Count 3.31 k/cumm (4.4-10.8)
[2019-07-04 07:27] LABS: Anion Gap 7.7 mmol/L (3-11); BUN 13 mg/dL (7-18); C-Reactive Protein 1.81 mg/dL (0.0-0.3); CO2 27.3 mmol/L (21.0-32.0); CREATININE 0.87 mg/dL (0.55-1.02); Calcium 9.4 mg/dL (8.5-10.1); Chloride 102 mmol/L (98-107); Glucose 104 mg/dL (70-100); Magnesium 1.7 mg/dL (1.8-2.4); Potassium 4.1 mmol/L (3.5-5.1); Sodium 137 mmol/L (136-145)
[2019-07-04 07:50] LABS: Procalcitonin 0.1 ng/mL
[2019-07-04 08:11] LABS: Iron 29 ug/dL (50-175); Total Iron Binding Capacity 297 ug/dL (250-450); Transferrin Sat 10 % (15-50)
[2019-07-04 08:26] LABS: Ferritin 80 ng/mL (8-388)
[2019-07-04] MEDS: Cyanocobalamin 500 MCG TAB 1000 MCG PO (09:23)
[2019-07-04] MEDS: Sucralfate 1 GM TAB PO ×4 (09:24→21:58)
[2019-07-04] MEDS: Thiamine 100 MG TAB PO (09:24)
[2019-07-04] MEDS: Magnesium Chloride 64 MG TABCR PO ×2 (09:24→20:10)
[2019-07-04] MEDS: Venlafaxine 37.5 MG CAPCR PO (09:24)
[2019-07-04] MEDS: Venlafaxine 150 MG CAPCR PO (09:24)
[2019-07-04] MEDS: Folic Acid 1 MG TAB PO (09:24)
[2019-07-04] MEDS: amLODIPine 10 MG TAB PO (09:25)
[2019-07-04] MEDS: Multivitamin TAB 1 TAB PO (09:25)
[2019-07-04] MEDS: Gabapentin 300 MG CAP PO ×2 (09:25→20:10)
[2019-07-04] MEDS: Pantoprazole 40 MG TABCR PO (09:25)
[2019-07-04] MEDS: Refresh PLUS Eye Drops 0.4ml 1 EACH OU ×5 (09:26→23:39)
[2019-07-04] MEDS: Metoprolol 50 MG TAB PO ×2 (09:26→20:10)
[2019-07-04] MEDS: Lidocaine 5% Patch 1 PATCH TP (09:27)
--- NOTE | 2019-07-04 09:33 | OT.INNT ---
Date of service: 07/04/19 Time of Service: 09:25 Occupational Therapy Notes 07/04/19 OT attempted to see pt 2x this morning. Pt reports that she has performed her ADLs prior with nursing and refused getting dressed this morning. Based on pt already performing her ADLs, OT will resume OT services tomorrow. Yee Elizalde, OTR/[facility]
[2019-07-04 09:42] LABS: Vancomycin, Trough 25.2 ug/mL (10.0-20.0)
--- NOTE | 2019-07-04 09:47 | PT.INTREAT ---
Date of service: 07/04/19 Time of Service: 09:47 PT Notes Inpatient Physical Therapy Treatment Note [facility] Date: 07/04/19 PRECAUTIONS: Fall SUBJECTIVE: Leticia is agreeable to participating in PT, although indicates that she is feeling tired this morning. OBJECTIVE: PAIN: No c/o pain BED MOBILITY/TRANSFERS Sit-supine: I Sit-stand: I Stand-sit: I GAIT Assistive Device: FWW SPC Weight bearing: Full Assist: S with FWW SBA with SPC Distance: 50' with FWW 200' with SPC THEREX: Patient completed a LE strengthening and stabilization program, in a supine position, as per flow sheet. Static standing at sink to brush teeth x2 minutes, independently TOILETING: Patient toileted, independently ASSESSMENT: Patient tolerated session well without complaint. She was able to tolerate a progression in gait training, with FWW support and supervision. She would benefit from continued gait and transfer training for improved mobility and activity tolerance. PLAN: Continue with PT's POC TREATMENT CODE/TIME: Session 1: 30 minutes; [id number], [id number]
[2019-07-04] MEDS: cefTRIAXone 2 GM/50 ML BAG IVPB (11:27)
[2019-07-04] MEDS: MAGNESIUM SULFATE 2 GM/50 ML BAG IVPB (12:08)
[2019-07-04] MEDS: Ibuprofen 400 MG TAB PO ×2 (14:57→22:00)
--- NOTE | 2019-07-04 14:59 | PT.INNT ---
Date of service: 07/04/19 Time of Service: 14:59 PT Notes 07/04/19 Patient refused afternoon PT session reporting that she is having a headache that she rates as a 5-6/10 on the VAS. Will attempt to resume PT services tomorrow morning.
--- NOTE | 2019-07-04 18:27 | W.PM.PROGNOT ---
Date of Service Date of service: 07/04/19 Time of Service: 15:45 Assessment and Plan Assessment and plan (1) Positive blood culture: Status: Acute Assessment and plan: 2/4 cx from admission are positive for coag negative staph. I believe these are contaminant. Repeat blood cultures are negative. There is one possibility, however, where these blood cultures could be textile machinery sales representative of a real infection, and that is if she had an empyema - she does have a left loculated pleural effusion which is too small for thoracenthesis. WBC scan was done today, read is pending. If positive, would need a transfer for VATS - [facility] is familiar with the patient's effusion; she had a chest tube there previously. Continue to trend CRP and procalcitonin - both better. Continue empiric vancomycin, high dose ceftriaxone day 4) (2) Fever of unknown origin: Status: Acute Assessment and plan: As above. (3) Emesis, persistent: Status: Resolved Assessment and plan: Suspect alcoholic gastritis. No evidence of an obstructive process on CT. Continue PPI, carafate. I am also concerned about development of C.Diff, so monitor for diarrhea. (4) Hypoxia: Status: Resolved Assessment and plan: Due to atelectasis, medications for alcohol withdrawal. Aspiration less likely given absence of findings on CXR. Monitor respiratory status. Encourage IS. (5) Atelectasis of left lung: Status: Chronic Assessment and plan: Due to known L-sided rib fractures (old). Provide IS. Encourage ambulation. (6) Loculated pleural effusion: Status: Acute Assessment and plan: As above - Too small for thoracenthesis. Await WBC scan results. (7) Alcohol withdrawal: Status: Acute Assessment and plan: Monitor on CIWA with prn PO ativan. Continue PO thiamine, multivitamins. Qualifiers: Complication of substance-induced condition: uncomplicated Qualified Code(s): F10.230 - Alcohol dependence with withdrawal, uncomplicated (8) Hypomagnesemia: Status: Acute Assessment and plan: recheck in am (9) Hypokalemia: Status: Resolved Assessment and plan: recheck in am (10) Discharge planning issues: Status: Acute Assessment and plan: DNR/DNI Only has a generator assembler 2 hours a day Palliative care consult to discuss goals of care given unwillingness to stop drinking for workup of a lung nodule (11) DVT prophylaxis: Status: Acute Assessment and plan: Heparin SC. Subjective Subjective Interval history since last seen: Leticia feels better. No dizziness, chest pain, shortness of breath. Continues to report nausea when taking meds. Has a headache today. Per my conversation with her generator assembler, Leticia was told by [facility] that she can only have a biopsy of her lung mass if she stops drinking, and she does not want to. Exam Narrative Exam Narrative: Genera: Frail elderly female, laying comfortably in bed, not tremulous, A&Ox3 HEENT: EOMI, MMM Heart: RRR, no m/r/g Lungs: crackles at B bases. GI: abdomen is soft, nontender to palpation that I can appreciate Extremities: no e/c/c BLE's Objective Objective Clinical Data: Abnormal lab results 07/04/19 07/04/19 07/04/19 Range/Units 06:55 06:55 06:55 WBC 3.31 L (4.4-10.8) k/cumm RBC 3.17 L (4.00-5.20) m/cumm Hgb 9.5 L (12.0-15.5) g/dL Hct 30.1 L (36.0-46.0) % MCHC 31.6 L (32.0-36.0) g/dL RDW 16.1 H (11.7-14.6) % Absolute Lymphocytes 0.81 L (1.2-3.4) k/cumm Glucose 104 H (70-100) mg/dL Magnesium 1.7 L (1.8-2.4) mg/dL Iron 29 L (50-175) ug/dL Transferrin % Sat 10 L (15-50) % C-Reactive Protein 1.81 H (0.0-0.3) mg/dL Vancomycin Trough (10.0-20.0) ug/mL 07/04/19 Range/Units 09:00 WBC (4.4-10.8) k/cumm RBC (4.00-5.20) m/cumm Hgb (12.0-15.5) g/dL Hct (36.0-46.0) % MCHC (32.0-36.0) g/dL RDW (11.7-14.6) % Absolute Lymphocytes (1.2-3.4) k/cumm Glucose (70-100) mg/dL Magnesium (1.8-2.4) mg/dL Iron (50-175) ug/dL Transferrin % Sat (15-50) % C-Reactive Protein (0.0-0.3) mg/dL Vancomycin Trough 25.2 H* (10.0-20.0) ug/mL Vital Signs Temperature 36.7 C 07/04/19 16:03 Temperature Source Tympanic 07/04/19 16:03 Pulse 83 07/04/19 16:03 Pulse Rhythm Regular 07/04/19 15:16 Pulse 100 H 06/30/19 19:10 Respiratory Rate 18 07/04/19 16:03 Respiratory Effort Non-Labored 07/04/19 15:16 Respiratory Depth Normal 07/04/19 15:16 Respiratory Pattern Normal 07/04/19 15:16 Blood Pressure 132/83 07/04/19 16:03 Blood Pressure Mean 103 06/30/19 17:30 Blood Pressure Position Supine 06/30/19 16:00 Pulse Oximetry 97 07/04/19 16:03 Oxygen Delivery Method Room Air 07/04/19 16:03 Oxygen Flow Rate 0 07/04/19 16:03 Pain Level 0 07/04/19 16:03 Comment 07/03/19 07:45 Intake & Output 07/03/19 07/04/19 07/04/19 23:59 11:59 23:59 Intake Total 740 / 1900 810 / 1060 250 / 1060 Balance 740 / 1800 810 / 1060 250 / 1060 Weight 64.9 kg Intake: IV 260 / 530 570 / 570 Oral 480 / 1370 240 / 490 250 / 490 Other: Urine Color Yellow Pale Pale Yellow Yellow Urine Appearance Clear Clear Clear Stool Occult Blood Negative Stool Size Large Smear Moderate Stool Characteristics Soft Formed Soft Brown Brown Formed Voiding Methods Bedside Commode Toilet Toilet Laboratory Results WBC 3.31 k/cumm (4.4-10.8) L 07/04/19 06:55 RBC 3.17 m/cumm (4.00-5.20) L 07/04/19 06:55 Hgb 9.5 g/dL (12.0-15.5) L 07/04/19 06:55 Hct 30.1 % (36.0-46.0) L 07/04/19 06:55 MCV 95.0 fL (80-95) 07/04/19 06:55 MCH 30.0 pg (27.0-33.0) 07/04/19 06:55 MCHC 31.6 g/dL (32.0-36.0) L 07/04/19 06:55 RDW 16.1 % (11.7-14.6) H 07/04/19 06:55 Plt Count 197 x1000/uL (130-400) 07/04/19 06:55 MPV 8.9 fL (8.0-11.0) 07/04/19 06:55 Immature Gran % 0.9 07/04/19 06:55 Neutrophils % 63.1 07/04/19 06:55 Lymphocytes % 24.5 07/04/19 06:55 Monocytes % 3.9 07/04/19 06:55 Eosinophils % 7.3 07/04/19 06:55 Basophils % 0.3 07/04/19 06:55 Absolute Neutrophils 2.09 k/cumm (1.2-6.7) 07/04/19 06:55 Absolute Lymphocytes 0.81 k/cumm (1.2-3.4) L 07/04/19 06:55 Absolute Monocytes 0.13 k/cumm (0.11-0.7) 07/04/19 06:55 Absolute Eosinophils 0.24 k/cumm (0.0-0.7) 07/04/19 06:55 Absolute Basophils 0.01 k/cumm (0.0-0.2) 07/04/19 06:55 Differential Comment Agrees w/ instrument 07/02/19 07:30 RBC Morphology See below 07/02/19 07:30 Polychromasia Present 07/02/19 07:30 Hypochromasia 2+ 07/02/19 07:30 Poikilocytosis 1+ 07/02/19 07:30 PT 10.1 sec (9.3-11.0) 06/30/19 16:30 INR 1.0 (0.9-1.1) 06/30/19 16:30 D-Dimer 789 ng/mlFEU (<500) H 06/30/19 16:26 Sodium 137 mmol/L (136-145) 07/04/19 06:55 Potassium 4.1 mmol/L (3.5-5.1) 07/04/19 06:55 Chloride 102 mmol/L (98-107) 07/04/19 06:55 Carbon Dioxide 27.3 mmol/L (21.0-32.0) 07/04/19 06:55 Anion Gap 7.7 mmol/L (3-11) 07/04/19 06:55 BUN 13 mg/dL (7-18) 07/04/19 06:55 Creatinine 0.87 mg/dL (0.55-1.02) 07/04/19 06:55 Estimated GFR/1.73 m2 >= 60.00 (mL/min/1.73m2) 07/04/19 06:55 Glucose 104 mg/dL (70-100) H 07/04/19 06:55 Lactate Cancelled 07/02/19 07:56 Calcium 9.4 mg/dL (8.5-10.1) 07/04/19 06:55 Phosphorus 2.5 mg/dL (2.6-4.7) L 06/30/19 19:06 Magnesium 1.7 mg/dL (1.8-2.4) L 07/04/19 06:55 Iron 29 ug/dL (50-175) L 07/04/19 06:55 TIBC 297 ug/dL (250-450) 07/04/19 06:55 Transferrin % Sat 10 % (15-50) L 07/04/19 06:55 Ferritin 80 ng/mL (8-388) 07/04/19 06:55 Total Bilirubin 0.5 mg/dL (0.2-1.0) 07/03/19 07:25 Conjugated Bilirubin 0.12 mg/dL (0.00-0.20) 07/03/19 07:25 AST 25 U/L (15-37) 07/03/19 07:25 ALT 29 U/L (14-59) 07/03/19 07:25 Alkaline Phosphatase 101 U/L (46-116) 07/03/19 07:25 Troponin I < 0.05 ng/mL (0.00-0.06) 06/30/19 19:08 C-Reactive Protein 1.81 mg/dL (0.0-0.3) H 07/04/19 06:55 NT-Pro-B Natriuret Pep 848 pg/mL (-299) H 06/30/19 16:05 Total Protein 6.1 g/dL (6.4-8.2) L 07/03/19 07:25 Albumin 2.7 g/dL (3.4-5.0) L 07/03/19 07:25 Lipase 37 U/L (73-393) L 07/02/19 07:30 Procalcitonin 0.1 ng/mL 07/04/19 06:55 TSH 0.27 uIU/mL (0.36-3.74) L 06/30/19 19:06 Free T4 1.22 ng/dL (0.76-1.46) 06/30/19 19:06 Urine Color Yellow (Yellow) 07/01/19 12:15 Urine Clarity Clear (Clear) 07/01/19 12:15 Urine pH 7.5 (5-8) 07/01/19 12:15 Ur Specific [place] 1.015 (1.005-1.025) 07/01/19 12:15 Urine Protein Negative mg/dL (Negative) 07/01/19 12:15 Urine Ketones Negative mg/dL (Negative) 07/01/19 12:15 Urine Blood Negative (Negative) 07/01/19 12:15 Urine Nitrite Negative (Negative) 07/01/19 12:15 Urine Bilirubin Negative (Negative) 07/01/19 12:15 Urine Urobilinogen 0.2 EU/dL (Up TO 0.2) 07/01/19 12:15 Ur Leukocyte Esterase Negative (Negative) 07/01/19 12:15 Urine Glucose Negative mg/dL (Negative) 07/01/19 12:15 Vancomycin Trough 25.2 ug/mL (10.0-20.0) H* 07/04/19 09:00 Ethyl Alcohol < 3.0 mg/dL (<3) 06/30/19 16:05
--- NOTE | 2019-07-04 19:31 | PDOC.CMPRO ---
- If Service Date Differs Date of service: 07/04/19 Time of Service: 19:31 Care Management Progress Note S/O: Leticia was lying in bed when CM met with her. She reported that she was very tired and planned to go to sleep early tonight, after she watches the local news. She also reported having a test today, but not knowing the results at that time. CM will continue to follow. A: 74 year old female admitted to [facility] 06/30/19 for Dehydration with Emesis, Hypokalemia, Alcoholism P: Anticipate Leticia will return home when medically cleared with a resumption of services- RN vs SNF placement for a short rehab stay. CM to coordinate transportation via [facility]. CM will continue to support Leticia with decision making regarding discharge planning.
[2019-07-04] MEDS: LORazepam 1 MG TAB PO/SL (20:18)
--- NOTE | 2019-07-04 22:06 | NUR.NOTE ---
Nursing Note:Patient took lidocaine patch off and gave to this nurse. Lidocaine patch placed in black box.
[2019-07-05] MEDS: Heparin 5,000 UNITS/ML VIAL 5000 UNITS SC ×3 (05:33→22:12)
[2019-07-05 07:20] VITALS: BP 157/108; PULSE 94; RESP 20; TEMP 36.9; O2SAT 97
[2019-07-05 07:21] LABS: Abs Immature Grans 0.04 k/cumm (0.0-0.09); Absolute Basophil Count 0.01 k/cumm (0.0-0.2); Absolute Eosinophil Count 0.22 k/cumm (0.0-0.7); Absolute Neutrophil Count 1.61 k/cumm (1.2-6.7); Basophils % 0.3; Eosinophils % 7.4; HCT 29.3 % (36.0-46.0); HGB 9.1 g/dL (12.0-15.5); Immature Grans % 1.3; Lymphocytes % 30.2; Mean Corp. HGB Concentration 31.1 g/dL (32.0-36.0); Mean Corpuscular Hemoglobin 29.4 pg (27.0-33.0); Mean Corpuscular Volume 94.8 fL (80-95); Mean Platelet Volume 8.7 fL (8.0-11.0); Monocytes % 6.7; Neutrophils % 54.1; Platelet Count 219 x1000/uL (130-400); RBC 3.09 m/cumm (4.00-5.20); RBC Distribution Width 16.1 % (11.7-14.6); White Blood Cell Count 2.98 k/cumm (4.4-10.8)
[2019-07-05 07:25] VITALS: BP 158/100
[2019-07-05 07:51] LABS: Anion Gap 10.2 mmol/L (3-11); BUN 15 mg/dL (7-18); CO2 24.8 mmol/L (21.0-32.0); CREATININE 0.85 mg/dL (0.55-1.02); Calcium 9.8 mg/dL (8.5-10.1); Chloride 103 mmol/L (98-107); Glucose 111 mg/dL (70-100); Magnesium 1.8 mg/dL (1.8-2.4); Sodium 138 mmol/L (136-145)
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
[2019-07-05] MEDS: Lidocaine 5% Patch 1 PATCH TP (09:19)
[2019-07-05] MEDS: Cyanocobalamin 500 MCG TAB 1000 MCG PO (09:20)
[2019-07-05] MEDS: Pantoprazole 40 MG TABCR PO (09:21)
[2019-07-05] MEDS: Gabapentin 300 MG CAP PO ×2 (09:21→20:43)
[2019-07-05] MEDS: Folic Acid 1 MG TAB PO (09:21)
[2019-07-05] MEDS: Thiamine 100 MG TAB PO (09:21)
[2019-07-05] MEDS: Metoprolol 50 MG TAB PO ×2 (09:21→20:43)
[2019-07-05] MEDS: Venlafaxine 150 MG CAPCR PO (09:21)
[2019-07-05] MEDS: Venlafaxine 37.5 MG CAPCR PO (09:21)
[2019-07-05] MEDS: amLODIPine 10 MG TAB PO (09:21)
[2019-07-05] MEDS: Magnesium Chloride 64 MG TABCR PO ×2 (09:21→20:43)
[2019-07-05] MEDS: Multivitamin TAB 1 TAB PO (09:21)
[2019-07-05] MEDS: Sucralfate 1 GM TAB PO ×4 (09:22→22:12)
[2019-07-05] MEDS: Refresh PLUS Eye Drops 0.4ml 1 EACH OU ×3 (09:22→15:55)
[2019-07-05] MEDS: Normal Saline Flush 10 ML SYR IVP ×2 (09:22→11:39)
[2019-07-05] MEDS: Ibuprofen 400 MG TAB PO ×2 (09:59→18:18)
[2019-07-05 11:15] VITALS: BP 155/103; PULSE 94; RESP 16; TEMP 36.7; O2SAT 95
[2019-07-05] MEDS: cefTRIAXone 2 GM/50 ML BAG IVPB (11:40)
--- NOTE | 2019-07-05 12:05 | PT.INTREAT ---
Date of service: 07/05/19 Time of Service: 12:05 PT Notes Inpatient Physical Therapy Treatment Note [facility] Date: 07/05/2019 PRECAUTIONS: Fall SUBJECTIVE: Leticia states that she is feeling much better compared to earlier this morning. She is pleasant and agreeable to participating in PT. OBJECTIVE: Patient is independent within room with transfers and gait with SPC support. PAIN: No c/o pain BED MOBILITY/TRANSFERS Sit-stand: I Stand-sit: I GAIT Assistive Device: SPC Weight bearing: Full Assist: S Distance: 400' Patient required Min A for tieing gown behind her neck due to self-reported shoulder impairment, as well as for clean up from independent bathing. ASSESSMENT: Patient tolerated session well without complaint. She was able to tolerate a progression in gait distance with SPC support and supervision. She has been cleared to be independent within her room with use of SPC support, with gait and transfers. PLAN: As per primary PT TREATMENT CODE/TIME: 25 minutes; 71168 x2
[2019-07-05] MEDS: VANCOMYCIN 750 MG in Normal Saline 250 ML 250 MG IV (12:47)
--- NOTE | 2019-07-05 15:20 | W.PM.PROGNOT ---
Date of Service Date of service: 07/05/19 Time of Service: 15:22 Assessment and Plan Assessment and plan (1) Positive blood culture: Status: Acute Assessment and plan: 2/4 cx from admission are positive for coag negative staph - likely contaminant. Repeat blood cultures are negative. WBC scan did not show enhanced uptake at left lung base, but actually showed it in presacral collection. Discussed with Dr Nam (surgery) - will obtain pelvic US. Continue empiric vancomycin, decrease dose of ceftriaxone (day 5). (2) Fever of unknown origin: Status: Acute Assessment and plan: As above. (3) Emesis, persistent: Status: Resolved Assessment and plan: Suspect alcoholic gastritis. No evidence of an obstructive process on CT. Continue PPI, carafate. I am also concerned about development of C.Diff, so monitor for diarrhea. (4) Hypoxia: Status: Resolved Assessment and plan: Due to atelectasis, medications for alcohol withdrawal. Aspiration less likely given absence of findings on CXR. Monitor respiratory status. Encourage IS. (5) Atelectasis of left lung: Status: Chronic Assessment and plan: Due to known L-sided rib fractures (old). Provide IS. Encourage ambulation. (6) Loculated pleural effusion: Status: Acute Assessment and plan: As above - Too small for thoracenthesis. Not empyema - no activity on WBC scan. (7) Alcohol withdrawal: Status: Acute Assessment and plan: Monitor on CIWA with prn PO ativan. Continue PO thiamine, multivitamins. Qualifiers: Complication of substance-induced condition: uncomplicated Qualified Code(s): F10.230 - Alcohol dependence with withdrawal, uncomplicated (8) Hypomagnesemia: Status: Acute Assessment and plan: recheck in am (9) Hypokalemia: Status: Resolved Assessment and plan: recheck in am (10) Discharge planning issues: Status: Acute Assessment and plan: DNR/DNI Only has a technical writer 2 hours a day Palliative care consult to discuss goals of care given unwillingness to stop drinking for workup of a lung nodule (11) DVT prophylaxis: Status: Acute Assessment and plan: Heparin SC. Subjective Subjective Interval history since last seen: Leticia states she has had a lot of post-nasal drip and requests flonase. She states her headache is better - she now connects it to her sinuses. Denies dizziness, chest pain, shortness of breath, nausea. When asked about pelvic discomfort (based on WBC scan report), she endorses it - states it's bad and she always thought she had arthritis. Exam Narrative Exam Narrative: Genera: Frail elderly female, laying comfortably in bed, not tremulous, A&Ox3 HEENT: EOMI, MMM Heart: RRR, no m/r/g Lungs: crackles at B bases have improved GI: abdomen is soft, nontender Extremities: no e/c/c BLE's Objective Objective Clinical Data: Abnormal lab results 07/05/19 07/05/19 Range/Units 07:13 07:13 WBC 2.98 L (4.4-10.8) k/cumm RBC 3.09 L (4.00-5.20) m/cumm Hgb 9.1 L (12.0-15.5) g/dL Hct 29.3 L (36.0-46.0) % MCHC 31.1 L (32.0-36.0) g/dL RDW 16.1 H (11.7-14.6) % Absolute Lymphocytes 0.90 L (1.2-3.4) k/cumm Glucose 111 H (70-100) mg/dL Vital Signs Temperature 36.7 C 07/05/19 11:15 Temperature Source Tympanic 07/05/19 11:15 Pulse 94 H 07/05/19 11:15 Pulse Rhythm Regular 07/05/19 09:20 Pulse 100 H 06/30/19 19:10 Respiratory Rate 16 07/05/19 11:15 Respiratory Effort Non-Labored 07/05/19 09:20 Respiratory Depth Normal 07/05/19 09:20 Respiratory Pattern Normal 07/05/19 09:20 Blood Pressure 155/103 H 07/05/19 11:15 Blood Pressure Mean 103 06/30/19 17:30 Blood Pressure Position Supine 06/30/19 16:00 Pulse Oximetry 95 07/05/19 11:15 Oxygen Delivery Method Room Air 07/05/19 11:15 Oxygen Flow Rate 0 07/05/19 11:15 Pain Level 0 07/05/19 11:15 Comment 07/03/19 07:45 Intake & Output 07/04/19 07/05/19 07/05/19 23:59 11:59 23:59 Intake Total 250 / 1060 710 / 710 Balance 250 / 1060 710 / 710 Weight 62.2 kg Intake: IV 310 / 310 Oral 250 / 490 400 / 400 Other: Urine Color Yellow Yellow Urine Appearance Clear Clear Urine Odor Normal Stool Size Moderate Small Stool Characteristics Soft Soft Formed Brown Voiding Methods Toilet Toilet Toilet Diaper Laboratory Results WBC 2.98 k/cumm (4.4-10.8) L 07/05/19 07:13 RBC 3.09 m/cumm (4.00-5.20) L 07/05/19 07:13 Hgb 9.1 g/dL (12.0-15.5) L 07/05/19 07:13 Hct 29.3 % (36.0-46.0) L 07/05/19 07:13 MCV 94.8 fL (80-95) 07/05/19 07:13 MCH 29.4 pg (27.0-33.0) 07/05/19 07:13 MCHC 31.1 g/dL (32.0-36.0) L 07/05/19 07:13 RDW 16.1 % (11.7-14.6) H 07/05/19 07:13 Plt Count 219 x1000/uL (130-400) 07/05/19 07:13 MPV 8.7 fL (8.0-11.0) 07/05/19 07:13 Immature Gran % 1.3 07/05/19 07:13 Neutrophils % 54.1 07/05/19 07:13 Lymphocytes % 30.2 07/05/19 07:13 Monocytes % 6.7 07/05/19 07:13 Eosinophils % 7.4 07/05/19 07:13 Basophils % 0.3 07/05/19 07:13 Absolute Neutrophils 1.61 k/cumm (1.2-6.7) 07/05/19 07:13 Absolute Lymphocytes 0.90 k/cumm (1.2-3.4) L 07/05/19 07:13 Absolute Monocytes 0.20 k/cumm (0.11-0.7) 07/05/19 07:13 Absolute Eosinophils 0.22 k/cumm (0.0-0.7) 07/05/19 07:13 Absolute Basophils 0.01 k/cumm (0.0-0.2) 07/05/19 07:13 Differential Comment Agrees w/ instrument 07/02/19 07:30 RBC Morphology See below 07/02/19 07:30 Polychromasia Present 07/02/19 07:30 Hypochromasia 2+ 07/02/19 07:30 Poikilocytosis 1+ 07/02/19 07:30 PT 10.1 sec (9.3-11.0) 06/30/19 16:30 INR 1.0 (0.9-1.1) 06/30/19 16:30 D-Dimer 789 ng/mlFEU (<500) H 06/30/19 16:26 Sodium 138 mmol/L (136-145) 07/05/19 07:13 Potassium 4.0 mmol/L (3.5-5.1) 07/05/19 07:13 Chloride 103 mmol/L (98-107) 07/05/19 07:13 Carbon Dioxide 24.8 mmol/L (21.0-32.0) 07/05/19 07:13 Anion Gap 10.2 mmol/L (3-11) 07/05/19 07:13 BUN 15 mg/dL (7-18) 07/05/19 07:13 Creatinine 0.85 mg/dL (0.55-1.02) 07/05/19 07:13 Estimated GFR/1.73 m2 >= 60.00 (mL/min/1.73m2) 07/05/19 07:13 Glucose 111 mg/dL (70-100) H 07/05/19 07:13 Lactate Cancelled 07/02/19 07:56 Calcium 9.8 mg/dL (8.5-10.1) 07/05/19 07:13 Phosphorus 2.5 mg/dL (2.6-4.7) L 06/30/19 19:06 Magnesium 1.8 mg/dL (1.8-2.4) 07/05/19 07:13 Iron 29 ug/dL (50-175) L 07/04/19 06:55 TIBC 297 ug/dL (250-450) 07/04/19 06:55 Transferrin % Sat 10 % (15-50) L 07/04/19 06:55 Ferritin 80 ng/mL (8-388) 07/04/19 06:55 Total Bilirubin 0.5 mg/dL (0.2-1.0) 07/03/19 07:25 Conjugated Bilirubin 0.12 mg/dL (0.00-0.20) 07/03/19 07:25 AST 25 U/L (15-37) 07/03/19 07:25 ALT 29 U/L (14-59) 07/03/19 07:25 Alkaline Phosphatase 101 U/L (46-116) 07/03/19 07:25 Troponin I < 0.05 ng/mL (0.00-0.06) 06/30/19 19:08 C-Reactive Protein 1.81 mg/dL (0.0-0.3) H 07/04/19 06:55 NT-Pro-B Natriuret Pep 848 pg/mL (-299) H 06/30/19 16:05 Total Protein 6.1 g/dL (6.4-8.2) L 07/03/19 07:25 Albumin 2.7 g/dL (3.4-5.0) L 07/03/19 07:25 Lipase 37 U/L (73-393) L 07/02/19 07:30 Procalcitonin 0.1 ng/mL 07/04/19 06:55 TSH 0.27 uIU/mL (0.36-3.74) L 06/30/19 19:06 Free T4 1.22 ng/dL (0.76-1.46) 06/30/19 19:06 Urine Color Yellow (Yellow) 07/01/19 12:15 Urine Clarity Clear (Clear) 07/01/19 12:15 Urine pH 7.5 (5-8) 07/01/19 12:[address] [place] 1.015 (1.005-1.025) 07/01/19 12:15 Urine Protein Negative mg/dL (Negative) 07/01/19 12:15 Urine Ketones Negative mg/dL (Negative) 07/01/19 12:15 Urine Blood Negative (Negative) 07/01/19 12:15 Urine Nitrite Negative (Negative) 07/01/19 12:15 Urine Bilirubin Negative (Negative) 07/01/19 12:15 Urine Urobilinogen 0.2 EU/dL (Up TO 0.2) 07/01/19 12:15 Ur Leukocyte Esterase Negative (Negative) 07/01/19 12:15 Urine Glucose Negative mg/dL (Negative) 07/01/19 12:15 Vancomycin Trough 25.2 ug/mL (10.0-20.0) H* 07/04/19 09:00 Ethyl Alcohol < 3.0 mg/dL (<3) 06/30/19 16:05
[2019-07-05 16:01] VITALS: BP 143/92; PULSE 91; RESP 17; TEMP 37; O2SAT 96
--- NOTE | 2019-07-05 16:04 | CHAPLAIN ---
Leticia said she's had more tests and is waiting to hear results. She said a scan of her pelvic area lit up but I haven't heard what that means. She talked about going to rehab before returning home, because she said last time she was home only for a few days before being readmitted. She is concerned about her four cats and one dog. Her caregiver is checking on them in the morning, and her sister at night, but her animals remain her motivation for getting home.
--- NOTE | 2019-07-05 16:33 | CMPROGNOTE_ITS ---
- If Service Date Differs Date of service: 07/05/19 Time of Service: 16:33 Care Management Progress Note S/O: Leticia was lying in bed when CM met with her. She reported that she felt ok, but that earlier this morning she had a 'screaming headache'. She also reported that she worked with PT today, which 'went fine'. She stated that she would consider going to [facility], but she prefers going home. She states that she will NOT go to the [facility]. CM will continue to follow. A: 74 year old female admitted to [facility] 06/30/19 for Dehydration with Emesis, Hypokalemia, Alcoholism P: Anticipate Leticia will return home when medically cleared with a resumption of HH services- RN vs SNF placement for a short rehab stay. CM to coordinate transportation via [facility]. CM will continue to support Leticia with decision making regarding discharge planning.
[2019-07-05] MEDS: Fluticasone NASAL SPRAY 16 GM BTL NS (16:53)
[2019-07-05 19:52] VITALS: BP 166/90; PULSE 93; RESP 18; TEMP 37.1; O2SAT 95
[2019-07-05] MEDS: LORazepam 1 MG TAB PO/SL (20:43)
[2019-07-06] MEDS: Refresh PLUS Eye Drops 0.4ml 1 EACH OU ×4 (00:20→15:29)
[2019-07-06] MEDS: VANCOMYCIN 750 MG in Normal Saline 250 ML 250 MG IV (00:20)
[2019-07-06 00:25] VITALS: BP 149/77; PULSE 83; RESP 17; TEMP 36.7; O2SAT 96
[2019-07-06] MEDS: Heparin 5,000 UNITS/ML VIAL 5000 UNITS SC ×2 (06:39→13:38)
[2019-07-06] MEDS: Ibuprofen 400 MG TAB PO ×2 (07:08→15:32)
[2019-07-06 07:29] LABS: Abs Immature Grans 0.06 k/cumm (0.0-0.09); Absolute Basophil Count 0.01 k/cumm (0.0-0.2); Absolute Eosinophil Count 0.16 k/cumm (0.0-0.7); Absolute Monocyte Count 0.27 k/cumm (0.11-0.7); Absolute Neutrophil Count 1.12 k/cumm (1.2-6.7); Basophils % 0.4; Eosinophils % 6.1; HCT 28.6 % (36.0-46.0); HGB 8.8 g/dL (12.0-15.5); Immature Grans % 2.3; Lymphocytes % 38.2; Mean Corp. HGB Concentration 30.8 g/dL (32.0-36.0); Mean Corpuscular Hemoglobin 29.2 pg (27.0-33.0); Mean Platelet Volume 8.8 fL (8.0-11.0); Monocytes % 10.3; Neutrophils % 42.7; Platelet Count 248 x1000/uL (130-400); RBC 3.01 m/cumm (4.00-5.20); RBC Distribution Width 16.1 % (11.7-14.6); White Blood Cell Count 2.62 k/cumm (4.4-10.8)
[2019-07-06 07:35] VITALS: BP 162/93; PULSE 93; RESP 18; TEMP 36.8; O2SAT 96
[2019-07-06] MEDS: Gabapentin 300 MG CAP PO (07:44)
[2019-07-06] MEDS: Normal Saline Flush 10 ML SYR IVP ×3 (07:44→12:58)
[2019-07-06] MEDS: Thiamine 100 MG TAB PO (07:44)
[2019-07-06] MEDS: Cyanocobalamin 500 MCG TAB 1000 MCG PO (07:44)
[2019-07-06] MEDS: Venlafaxine 150 MG CAPCR PO (07:45)
[2019-07-06] MEDS: amLODIPine 10 MG TAB PO (07:45)
[2019-07-06] MEDS: Magnesium Chloride 64 MG TABCR PO (07:45)
[2019-07-06] MEDS: Metoprolol 50 MG TAB PO (07:45)
[2019-07-06] MEDS: Sucralfate 1 GM TAB PO ×3 (07:45→15:32)
[2019-07-06] MEDS: Venlafaxine 37.5 MG CAPCR PO (07:46)
[2019-07-06] MEDS: Pantoprazole 40 MG TABCR PO (07:46)
[2019-07-06] MEDS: Multivitamin TAB 1 TAB PO (07:46)
[2019-07-06] MEDS: Folic Acid 1 MG TAB PO (07:46)
[2019-07-06] MEDS: Lidocaine 5% Patch 1 PATCH TP (07:48)
[2019-07-06 07:58] LABS: BUN 17 mg/dL (7-18); C-Reactive Protein 0.28 mg/dL (0.0-0.3); CREATININE 0.93 mg/dL (0.55-1.02); Calcium 9.9 mg/dL (8.5-10.1); Chloride 106 mmol/L (98-107); Glucose 107 mg/dL (70-100); Magnesium 1.6 mg/dL (1.8-2.4); Potassium 3.9 mmol/L (3.5-5.1); Sodium 141 mmol/L (136-145)
--- NOTE | 2019-07-06 08:18 | NUR.NOTE ---
Nursing Note: Patient angry stating that she is leaving because we do nothing for her here. Patient also stating that her pain is 10/10 but is refusing pain medication because it also does nothing for her
[2019-07-06 08:19] LABS: Procalcitonin < 0.1 ng/mL
[2019-07-06] MEDS: Fluticasone NASAL SPRAY 16 GM BTL NS (09:34)
[2019-07-06 09:40] VITALS: O2SAT 96
--- NOTE | 2019-07-06 10:04 | OTDS_ITS ---
Date of service: 07/06/19 Time of Service: 10:04 Occupational Therapy Notes Occupational Therapy Inpatient Discharge Summary Date: [] Dates of Service: 07/02/19-07/06/19 Referring Doctor:Laly Dumont MD OT Orders: Eval and Treat Precautions: Fall, Standard PATIENT PROFILE/ADMITTING DIAGNOSIS: Pt is a 74 year old female who was admitted through the ER on 06/30/19 for c/o nausea, vomiting and diarrhea. She was admitted to [facility] for hypomagnesemia, alcohol abuse, alcohol widthdrawal, hypokalemia, and dehydration. Pt was recently admitted to [facility] and was discharged on 06/20/19 after being admitted for several days for sepsis, penumonia and AMBER. After pt was discharged she returned home and reports that she drank 3 drinks of whiskey per day. Past Medical History: Medical History Alcohol abuse (Chronic) Alcoholic ketosis (Resolved) Allergic rhinitis (Chronic) Anemia (Chronic 12/20/16) Back pain, chronic (Chronic) Cataract (Chronic 11/07/15) Cervical radicular pain (Chronic) Chronic alcoholic gastritis (Chronic 10/12/17) Depression (Chronic) Elev transaminase/LDH (Chronic) Falling (Chronic) Genital herpes simplex (Chronic) GERD (gastroesophageal reflux disease) (Chronic) GI bleed (Chronic 12/20/16) Headache (Chronic) Hyperlipidemia (Chronic) Hypertension (Chronic) Macrocytosis (Chronic 09/26/14) Multiple rib fractures (Acute) Non-cardiac chest pain (Chronic 09/21/16) Osteoarthritis (Chronic) Osteopenia (Chronic) 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) Pleural effusion on left (Acute) Right rib fracture (Resolved) Sciatica (Chronic) Tubular adenoma of colon (Chronic 01/28/17) Urinary incontinence (Chronic) Wernicke encephalopathy (Chronic) Surgical History Bladder Surgery Colonoscopy - MAC (01/28/17) EGD - MAC (12/20/16) Ligation of fallopian tube Repair bladder injury, simple Social History/Home Situation: Pt reports that she was discharged from the [facility] in Mid March. She reports that she lives in a private home and has a caregiver who comes into the home 2 hours per day. She reports that her caregiver (A) with laundry, grocery shopping and homecare tasks. Pt states that she takes a shower 2x per week. She states that she has a shower seat and what she considers a regular shower. She has a regular toilet and grab bars near her shower but they are removeable. She states that otherwise she feels she is (I) and is able to wash and dress herself. She states that she sometimes has difficulty with LE dressing but this comes and goes she states that she never knows how the day will be. She has a dog that she cares for and she reports that she is eager to return home. Equipment owned/DME: grab bars, shower seat, FWW SUBJECTIVE: NT- Pt states that she is not interested in community resources and OT and pt discuss pts progress towards OT goals which she feels that she is at her baseline level of function. No skilled OT services were provided for this documentation and this is a summary of patient's care. OBJECTIVE: ROM: RUE AROM WFL L UE AROM WFL with limited shoulder flexion to 110* STRENGTH: RUE Shoulder flexion 4/5, bicep 3/5, tricep 3-/5, electrical and radio mock up mechanic is weak and symmetrical LUE Shoulder flexion 4/5, bicep 3/5, tricep 3-/5, electrical and radio mock up mechanic is weak and symmetrical FUNCTIONAL MOBILITY/ADLS: Transfers with cane Supine-sit (S) Sit-Stand vc throughout for hand placement, SBA Bed-Commode SBA, cane DRESSING Dressing- sitting on side of bed pt was (I) with [facility] of early gown, (I) don and doffing (B) socks and pants with ideal technique. Bathing- sitting on side of the bed with max (A) set up, (I) with (B) UE, denies washing hair, (I) abdomen and (I) (B) feet and (B) LE. Grooming- Sitting on side of the bed (I) with brushing hair TOILETING on commode min vc for toileting hygiene although pt was able to perform this (I). BALANCE: Static sitting Normal Dynamic Sitting Normal Static Standing Good Dynamic Standing Good ASSESSMENT: Patient is a 74-year-old female referred to occupational therapy services with diagnosis of hypomagnesia, alcohol abuse, alcohol widthdrawal, hypokalemia, nausea, vomiting and dehydration. Pt has been seen for 4 skilled OT services. She is demonstrating increased (I) and able to meet all goals established at initial eval. GOALS- All met 1. Transfers- (S), FWW 2. Dressing sitting on side of bed (I) with UE don and doffing shirt, (I) with don and doffing pants 3. Bathing sitting on side of bed (I) UE/LE 4. Toileting on commode (I) 5. Eating (I) 6. Grooming- standing at sink pt will be able to stand at sink with FWW (I) with brushing teeth PLAN OF CARE/TREATMENT PLAN: Discharge from skilled OT services. DISCHARGE RECOMMENDATIONS SNF based on pts current functional level of status and decreased overall safety awareness vs. Home with HH services. TREATMENT TIME/MINUTES/CODES N/A Yee Elizalde OTR/L [facility]
[2019-07-06] MEDS: Gadoterate meglumine 20 ML VIAL 12 ML IVP (11:54)
--- NOTE | 2019-07-06 12:35 | DI.MRI_ITS ---
EXAM: MR PELVIS WO/W CLINICAL HISTORY: presacral mass vs abscess. TECHNIQUE: Multiplanar multisequence MRI was performed. Post gadolinium fat-suppressed T1 axial, co tucker and sagittal sequences were performed in addition to the routine sequences. COMPARISON: CHEST ABD PELVIS WITH CONTRAST from 10/25/2016 CT CHEST PE ABD PELVIS W from 06/30/2019 NM ABSCESS IMG WHOLE BODY GRP from 07/04/2019 FINDINGS: As seen on the previous CTs, there is a lobulated mass in the presacral soft tissue to the right of midline. It measures up to 4 cm in size. There is mild enhancement following IV gadolinium. It does n ot have an appearance of an abscess. It is not significantly changed in size and when compared with t he previous exam from 2017 and is unlikely to represent an abscess. No invasive qualities. Previously noted fluid within the vagina is not seen on the current exam. The bladder and ovaries are unremarka ble. There may be a few small uterine fibroids. There are degenerative disc changes in the lower lumb ar spine as well as facet degenerative changes. 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 There are no features to suggest an abscess.
[2019-07-06] MEDS: Acetaminophen 325 MG TAB 650 MG PO (12:58)
[2019-07-06] MEDS: cefTRIAXone 1 GM/50 ML BAG IVPB (12:58)
[2019-07-06 13:09] VITALS: BP 153/88; PULSE 91; RESP 18; TEMP 37; O2SAT 99
[2019-07-06] MEDS: MAGNESIUM SULFATE 2 GM/50 ML BAG IVPB (13:38)
--- NOTE | 2019-07-06 14:53 | SCONE_ITS ---
Date of service: 07/06/19 Time of Service: 14:53 Assessment and Plan Assessment and plan (1) Presacral mass: Status: Acute Assessment and plan: The findings could be consistent with a low grade malignancy. I do not think it is the cause of her fever or acute issue. Discharge is expected soon. Will refer to IR for CT guided biopsy as an outpatient History of Present Illness Narrative: Patient admitted with fever/malaise. Likely source is pulmonary but patient also noted to have soft tissue mass in presacral region on CT. Tagged WBC scan showed an abscess vs malignancy. Follow up pelvic MRI was not consistent with infectious cause, but concern remains for a low grade tumor. Mass has been present since at least 07/2017 with review of prior imaging. The patient reports low back pain with standing to wash dishes. She reports a normal colonoscopy within the last few years. No vaginal bleeding. [facility] Medical History Alcohol abuse (Chronic) Alcoholic ketosis (Resolved) Allergic rhinitis (Chronic) Anemia (Chronic 12/20/16) Back pain, chronic (Chronic) Cataract (Chronic 11/07/15) Cervical radicular pain (Chronic) neck pain and DJD [facility] Chronic alcoholic gastritis (Chronic 10/12/17) pls refrain from alcohol Corneal ulcer, right (Inactive ~08/23/18) 08/23/18; [facility]- Depression (Chronic) Elev transaminase/LDH (Chronic) due to alcohol Falling (Chronic) Genital herpes simplex (Chronic) recurrent gential; suppressive Valtrex GERD (gastroesophageal reflux disease) (Chronic) GI bleed (Chronic 12/20/16) Headache (Chronic) Hyperlipidemia (Chronic) Hypertension (Chronic) high today; she will check readings at home 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 Multiple rib fractures (Acute) 03/11/19 [facility] Non-cardiac chest pain (Chronic 09/21/16[place] [facility] [place] NEGATIVE MP Osteoarthritis (Chronic) Osteopenia (Chronic) 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) Pleural effusion on left (Chronic) 03/11/19 [facility] Right rib fracture (Resolved) Sciatica (Chronic) right, epidural injuections [facility] Tendinitis of left rotator cuff (Inactive) Tubular adenoma of colon (Chronic 01/28/17) Urinary incontinence (Chronic) 01/24/13 [place] [facility] [place] Wernicke encephalopathy (Chronic) Surgical History Bladder Surgery suspension Colonoscopy - MAC (01/28/17) EGD - MAC (12/20/16) Ligation of fallopian tube Repair bladder injury, simple Family History Mother No problems noted. Father , DROWNED at age 50. No problems noted. Sister Personal history of malignant neoplasm MELANOMA Sister No problems noted. Grandfather Personal history of malignant neoplasm STOMACH Grandfather Personal history of malignant neoplasm PROSTATE Grandmother Heart disease [place] Acute ill-defined cerebrovascular disease Grandmother Personal history of malignant neoplasm UTERINE Aunt , [place] Heart disease [place] Aunt , [place] Heart disease Brother No problems noted. Social History Smoking/Tobacco Use Status: Former Tobacco Use Alcohol Intake: current Alcohol Intake frequency: 3 or more drinks per day Alcohol type: hard liquor Drug use: Never Substance use type: does not use Details: Patient states her last alcohol intake was 2 days ago 05/19/19-pt states last drink was weeks ago Do you feel safe at home: Yes Do you feel safe in your relationship?: Yes Additional Social history: my caregiver is an anxiety attack person Exam Narrative Exam Narrative: No acute distress Abdomen soft, non tender No groin adenopathy Results Last Vital Signs Temp 98.6 F 07/06/19 13:09 Pulse 91 H 07/06/19 13:09 Resp 18 07/06/19 13:09 BP 153/88 H 07/06/19 13:09 Pulse Ox 99 07/06/19 13:09 Labs Result diagrams: 07/06/19 06:55 07/06/19 06:55 Labs: Laboratory Results - last 24 hr 07/06/19 07/06/19 07/06/19 06:55 06:55 06:55 WBC 2.62 L RBC 3.01 L Hgb 8.8 L Hct 28.6 L MCV 95.0 MCH 29.2 MCHC 30.8 L RDW 16.1 H Plt Count 248 MPV 8.8 Immature Gran % 2.3 Neutrophils % 42.7 Lymphocytes % 38.2 Monocytes % 10.3 Eosinophils % 6.1 Basophils % 0.4 Absolute Neutrophils 1.12 L Absolute Lymphocytes 1.00 L Absolute Monocytes 0.27 Absolute Eosinophils 0.16 Absolute Basophils 0.01 Sodium 141 Potassium 3.9 Chloride 106 Carbon Dioxide 26.0 Anion Gap 9.0 BUN 17 Creatinine 0.93 Estimated GFR/1.73 m2 59.10 Glucose 107 H Calcium 9.9 Magnesium 1.6 L C-Reactive Protein 0.28 Procalcitonin < 0.1 Vancomycin Trough 07/06/19 11:00 WBC RBC Hgb Hct MCV MCH MCHC RDW Plt Count MPV Immature Gran % Neutrophils % Lymphocytes % Monocytes % Eosinophils % Basophils % Absolute Neutrophils Absolute Lymphocytes Absolute Monocytes Absolute Eosinophils Absolute Basophils Sodium Potassium Chloride Carbon Dioxide Anion Gap BUN Creatinine Estimated GFR/1.73 m2 Glucose Calcium Magnesium C-Reactive Protein Procalcitonin Vancomycin Trough Cancelled
[2019-07-06 15:37] VITALS: BP 132/83; PULSE 69; RESP 20; TEMP 36.1; O2SAT 96
--- NOTE | 2019-07-06 16:44 | DSE_ITS ---
Date of service: 07/06/19 Time of Service: 16:44 DS: Diagnosis Discharge Diagnosis (1) Fever of unknown origin: Status: Acute (2) Presacral mass: Status: Acute (3) Loculated pleural effusion: Status: Chronic Asessment and Plan: Did not light up on WBC scan - unlikely to be infected (4) Hypokalemia: Status: Resolved (5) Emesis, persistent: Status: Resolved (6) Alcohol withdrawal: Status: Acute (7) Alcohol abuse: Status: Chronic Discharge Plan Disposition Patient Disposition: HOME W/HOME HEALTH SERVICE Condition: Good Discharge Details Chief Complaint: Nausea/Vomit/Diar Clinical Impression: Hypomagnesemia, Alcohol abuse, Alcohol withdrawal, Hypokalemia, Nausea and vomiting in adult Reason For Visit: DEHYDRATION WITH EMESIS,HYPOKALEMIA,ALCOHOLISM Admit Date/Time: 06/30/19 18:54 Admit Provider: Saeed Thompson Attending Provider: Saeed Thompson Primary Care Provider: Lavelle Galindo ED Provider: Tash Servin [place] [facility] Course Hospital Course: Ms Garza is a 74 year old female with PMHx of alcohol abuse, as well as chronic small loculated left pleural effusion (residual from hemothorax/prior rib fractures), R lung nodule, hypertension, who was admitted to [facility] on 06/30/19 with intractable nausea/vomiting. Her imaging was negative for nay acute GI issue. Nausea/vomiting were self limited and resolved over the first night of patient's hospitalization. However, she did develop a significant fever (39.8) and remained febrile through 07/01/19. Blood cultures (1 set out of too) came back with coag negative staff. CXR and UA were negative. Because the patient has a known loculated L pleural effusion, which per surgery is too small for thoracenthesis, we needed to make sure she does not have an empyema. WBC scan was obtained and did not light up in the area of concern, essentially ruling it out. Meanwhile, the patient defervesced on broad spectrum antibiotics, and her inflammatory markers (CRP, procalcitonin) normalized. What did light up on the WBC scan was a presacral mass. To follow it up/qualify it better, the patient underwent a pelvic MRI, which revealed a lobulated mass with little change in the last 2 year - with concern for a low grade malignancy. General surgery feels that the patient would benefit from a CT-guided biopsy as outpatient which the general surgery office will set up. Patient has completed her medical therapy and, at this time, is medically stable for discharge home with resumption of home health services. care for patient as well as preparation of her discharge summary took 45 minutes on the day of discharge. Home Meds and New Rx's Prescriptions: New magnesium chloride [Mag 64] 64 mg Tablet,Delayed Release (Dr/Ec) 128 mg PO BID@1000,2200 Qty: 120 RF: 0 Continued venlafaxine 37.5 mg capsule,extended release 24hr 37.5 mg PO DAILY Qty: 30 RF: 11 venlafaxine 150 mg capsule,extended release 24hr 150 mg PO DAILY Qty: 30 RF: 11 ipratropium-albuterol 0.5 mg-3 mg(2.5 mg base)/3 mL solution for nebulization 3 ml IH QID PRN (Reason: shortness of breath) Qty: 90 RF: 3 lidocaine 5 % adhesive patch,medicated 1 patch TP DAILY RF: 0 gabapentin 300 mg capsule 300 mg PO BID Qty: 90 RF: 5 metoprolol tartrate 50 mg tablet 50 mg PO BID Qty: 60 RF: 2 hydrochlorothiazide 12.5 mg tablet 12.5 mg PO DAILY Qty: 90 RF: 3 amlodipine 10 mg tablet 10 mg PO DAILY Qty: 90 RF: 3 thiamine mononitrate (vit B1) [Vitamin B-1 (mononitrate)] 100 mg tablet 100 mg PO DAILY Qty: 90 RF: 3 folic acid 1 mg Tablet 1 mg PO DAILY Qty: 14 RF: 0 multivitamin [Multiple Vitamins] Tablet 1 tab PO DAILY Qty: 0 RF: 0 ibuprofen [IBU] 600 mg Tablet 600 mg PO TID PRN PRN (Reason: prn TMJ) Qty: 30 RF: 0 Refresh Plus 0.5 % Dropperette 1 drp OU Q4H WHILE AWAKE Qty: 30 RF: 0 fluticasone propionate 50 mcg/actuation [place],Suspension 1 spray NS DAILY Qty: 15.8 RF: 0 pantoprazole 40 mg Tablet,Delayed Release (Dr/Ec) 40 mg PO DAILY@0730 Qty: 0 RF: 0 Discontinued magnesium oxide [MagOx] 400 mg (241.3 mg magnesium) tablet 400 mg PO BID Qty: 30 RF: 0 Discharge Instructions Additional Instructions: Return to the hospital with any fever, bleeding, chest pain, shortness of breath. Follow up with your PCP and general surgery. 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 Referrals: Tiffanie Nam MD [ [facility] STAFF PHYSICIAN] - Lavelle Galindo [Primary Care Provider] - Activity:: Activity as Tolerated Equipment/Supplies:: No Equipment Needed Diet:: As Tolerated Discharge Orders Discharge Orders: Discharge Order (Routine); Ordered 07/06/19 Ordered By: Laly Dumont DS: Summary Status at Discharge Functional status at discharge: independent ambulation Overall status at discharge: patient is back to baseline Mental Status: mental status grossly normal Speech and Movement: speech and movement normal Mood: congruent mood Affect: normal affect Exam Narrative Exam Narrative: Genera: Frail elderly female, laying comfortably in bed, not tremulous, A&Ox3 HEENT: EOMI, MMM Heart: RRR, no m/r/g Lungs: crackles at B bases have improved GI: abdomen is soft, nontender Extremities: no e/c/c BLE's Psych Mental Status: mental status grossly normal Speech and Movement: speech and movement normal Mood: congruent mood Affect: normal affect DS: Data Vitals/I&O Vitals and I&O: Vital Signs Temperature 36.1 C L 07/06/19 15:37 Temperature Source Tympanic 07/06/19 15:37 Pulse 69 07/06/19 15:37 Pulse Rhythm Regular 07/06/19 15:30 Pulse 100 H 06/30/19 19:10 Respiratory Rate 20 07/06/19 15:37 Respiratory Effort Non-Labored 07/06/19 15:30 Respiratory Depth Normal 07/06/19 15:30 Respiratory Pattern Normal 07/06/19 15:30 Blood Pressure 132/83 07/06/19 15:37 Blood Pressure Mean 103 06/30/19 17:30 Blood Pressure Position Supine 06/30/19 16:00 Pulse Oximetry 96 07/06/19 15:37 Oxygen Delivery Method Room Air 07/06/19 15:37 Oxygen Flow Rate 0 07/06/19 15:37 Pain Level 0 07/06/19 15:37 Comment 07/06/19 13:09 Intake & Output 07/05/19 07/06/19 07/06/19 23:59 11:59 23:59 Intake Total 780 / 1500 280 / 590 310 / 590 Balance 780 / 1500 280 / 590 310 / 590 Weight 61.9 kg Intake: IV 300 / 620 280 / 350 70 / 350 Oral 480 / 880 240 / 240 Other: Urine Color Yellow Yellow Yellow Urine Appearance Clear Clear Clear Stool Size Small Large Large Stool Characteristics Soft Formed Formed Brown Brown Voiding Methods Toilet Bedside Commode Toilet Data Completed and Pending Completed studies during hospitalization [Text1]: CXR: Small left pleural effusion. Cardiomegaly. CT chest/abdomen/pelvis: 1. No evidence of pulmonary emboli or aortic dissection. 2. Stable 10 millimeter right upper lobe ground-glass nodule. 3. Stable mass in the presacral fat, which could represent adenopathy versus other malignancy. CXR: No acute abnormality. WBC scan: Increased uptake corresponding to presacral mass noted on recent CT, neoplastic versus infectious/inflammatory process. MRI pelvis: Lobulated mass seen on CT shows little climate change risk assessor 2 years and likely represents a low-grade malignancy. There are no features to suggest an abscess. Labs on day of discharge: Labs from last 24 hours 07/06/19 07/06/19 07/06/19 11:00 06:55 06:55 WBC 2.62 L RBC 3.01 L Hgb 8.8 L Hct 28.6 L MCV 95.0 MCH 29.2 MCHC 30.8 L RDW 16.1 H Plt Count 248 MPV 8.8 Immature Gran % 2.3 Neutrophils % 42.7 Lymphocytes % 38.2 Monocytes % 10.3 Eosinophils % 6.1 Basophils % 0.4 Absolute Neutrophils 1.12 L Absolute Lymphocytes 1.00 L Absolute Monocytes 0.27 Absolute Eosinophils 0.16 Absolute Basophils 0.01 Sodium Potassium Chloride Carbon Dioxide Anion Gap BUN Creatinine Estimated GFR/1.73 m2 Glucose Calcium Magnesium C-Reactive Protein Procalcitonin < 0.1 Vancomycin Trough Cancelled 07/06/19 06:55 WBC RBC Hgb Hct MCV MCH MCHC RDW Plt Count MPV Immature Gran % Neutrophils % Lymphocytes % Monocytes % Eosinophils % Basophils % Absolute Neutrophils Absolute Lymphocytes Absolute Monocytes Absolute Eosinophils Absolute Basophils Sodium 141 Potassium 3.9 Chloride 106 Carbon Dioxide 26.0 Anion Gap 9.0 BUN 17 Creatinine 0.93 Estimated GFR/1.73 m2 59.10 Glucose 107 H Calcium 9.9 Magnesium 1.6 L C-Reactive Protein 0.28 Procalcitonin Vancomycin Trough Preliminary micro results at discharge 07/01/19 20:10 Blood Culture - Preliminary Blood NO GROWTH 96 HOURS 07/01/19 19:55 Blood Culture - Preliminary Blood NO GROWTH 96 HOURS [facility] Medical History Alcohol abuse (Chronic) Alcoholic ketosis (Resolved) Allergic rhinitis (Chronic) Anemia (Chronic 12/20/16) Back pain, chronic (Chronic) Cataract (Chronic 11/07/15) Cervical radicular pain (Chronic) neck pain and [facility]D [facility] Chronic alcoholic gastritis (Chronic 10/12/17) pls refrain from alcohol Corneal ulcer, right (Inactive ~08/23/18) 08/23/18; [email or web address] Depression (Chronic) Elev transaminase/LDH (Chronic) due to alcohol Falling (Chronic) Genital herpes simplex (Chronic) recurrent gential; suppressive Valtrex GERD (gastroesophageal reflux disease) (Chronic) GI bleed (Chronic 12/20/16) Headache (Chronic) Hyperlipidemia (Chronic) Hypertension (Chronic) high today; she will check readings at home 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 Multiple rib fractures (Acute) 03/11/19 [facility] Non-cardiac chest pain (Chronic 09/21/16) [facility] 09/21/16 NEGATIVE MP Osteoarthritis (Chronic) Osteopenia (Chronic) 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) Pleural effusion on left (Chronic) 03/11/19 [facility] Right rib fracture (Resolved) Sciatica (Chronic) right, epidural injuections [facility] Tendinitis of left rotator cuff (Inactive) Tubular adenoma of colon (Chronic 01/28/17) Urinary incontinence (Chronic) 01/24/13 urethral suspension and sling at [facility] (bladder suspension 1991) Wernicke encephalopathy (Chronic) Surgical History Bladder Surgery suspension Colonoscopy - MAC (01/28/17) EGD - MAC (12/20/16) Ligation of fallopian tube Repair bladder injury, simple Family History Mother No problems noted. Father , DROWNED at age 50. No problems noted. Sister Personal history of malignant neoplasm MELANOMA Sister No problems noted. Grandfather Personal history of malignant neoplasm STOMACH Grandfather Personal history of malignant neoplasm PROSTATE Grandmother Heart disease SD Acute ill-defined cerebrovascular disease Grandmother Personal history of malignant neoplasm UTERINE Aunt , SD Heart disease SD Aunt , SD Heart disease Brother No problems noted. Social History Smoking/Tobacco Use Status: Former Tobacco Use Alcohol Intake: current Alcohol Intake frequency: 3 or more drinks per day Alcohol type: hard liquor Drug use: Never Substance use type: does not use Details: Patient states her last alcohol intake was 2 days ago 05/19/19-pt states last drink was weeks ago Do you feel safe at home: Yes Do you feel safe in your relationship?: Yes Additional Social history: my caregiver is an anxiety attack person
--- NOTE | 2019-07-06 17:07 | PDOC.CMDIS ---
- If Service Date Differs Date of service: 07/06/19 Time of Service: 17:07 LACE Index Scoring Tool - Questions: Length of Stay (in days): 7 - 13 Acuity (Admit via E.D.?): Yes E.D. Visits: 22 - Answers: Total Score: 12 Risk of Readmission: High Risk Care Management Discharge Reason for Hospitalization: Dehydration with emesis, hypokalemia Discharge Plan: Leticia will return home with a resumption of RN, PT, OT. [facility] notified [facility] of her discharge. CAPO also coordinated transportation via [facility]. She will follow up with her PCP, as recommended. She states that she is agreeable to going home at this time. Patient/Family Education Needs: Review discharge instructions regarding activity level, medication, and follow up appointments, discussion of self care needs including Ask Me Three
--- NOTE | 2019-07-07 15:00 | INDS_ITS ---
Date of service: 07/07/19 Time of Service: 15:00 PT Notes Inpatient Physical Therapy Discharge Summary Dates: 07/07/2019 Dates of Service: 07/02/2019 through 07/05/2019 This is a clinical summary of care provided on the duration of dates listed above. No charge was made in the completion of this documentation. Referring Doctor: Laly Dumont MD PT Orders: PT CONSULT: Eval/Treat for limited ability.? Precautions: Fall. Standard. Activity as tolerated. Patient Profile/Admitting Diagnosis: Patient is a 74-year-old female with past medical history significant for ETOH abuse, back pain, depression, and frequent falling who presented to the ED 06/30/2019 9 with chief complaints of nausea, vomiting, diarrhea. Patient is diagnosed with emesis, dehydration, EtOH withdrawal, and hypokalemia. PMHX: Medical History Alcohol abuse (Chronic) Alcoholic ketosis (Resolved) Allergic rhinitis (Chronic) Anemia (Chronic 12/20/16) Back pain, chronic (Chronic) Cataract (Chronic 11/07/15) Cervical radicular pain (Chronic) Chronic alcoholic gastritis (Chronic 10/12/17) Depression (Chronic) Elev transaminase/LDH (Chronic) Falling (Chronic) Genital herpes simplex (Chronic) GERD (gastroesophageal reflux disease) (Chronic) GI bleed (Chronic 12/20/16) Headache (Chronic) Hyperlipidemia (Chronic) Hypertension (Chronic) Macrocytosis (Chronic 09/26/14) Multiple rib fractures (Acute) Non-cardiac chest pain (Chronic 09/21/16) Osteoarthritis (Chronic) Osteopenia (Chronic) 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) Pleural effusion on left (Acute) Right rib fracture (Resolved) Sciatica (Chronic) Tubular adenoma of colon (Chronic 01/28/17) Urinary incontinence (Chronic) Wernicke encephalopathy (Chronic) Surgical History Bladder Surgery Colonoscopy - MAC (01/28/17) EGD - MAC (12/20/16) Ligation of fallopian tube Repair bladder injury, simple Social History/Home Situation: Leticia reports that she lives in a private home in [place]. She has a caregiver who comes in daily 5 days per week for 2 hours each time to assist with laundry, minor house chores, and grocery shopping. Patient is independent with MRADLs using a straight cane. She has a walker which she states she does not use often. She receives meals on wheels. She no longer drives. She was recently discharged from this hospital on 06/18/2019 at independent with a straight cane for all level surface ambulation. Equipment Owned/DME: FWW, SC, grab bars, emergency alert device Subjective: NT Is Objective: General Observation: NT Mental Status: NT Pain: NT ROM: Right Lower Extremity: Hip flexion WFL. Hip abduction WFL. Knee flexion WFL. Ankle dorsiflexion WFL. Ankle plantarflexion WFL. Left Lower Extremity: Hip flexion WFL. Hip abduction WFL. Knee flexion WFL. Ankle dorsiflexion WFL. Ankle plantarflexion WFL. Strength (assessed in supine): Right Lower Extremity: Hip flexors 4-/5. Knee extensors 4/5. Ankle dorsiflexors 5/5. Ankle plantarflexors 5/5. Left Lower Extremity: Hip flexors 4-/5. Knee extensors 4/5. Ankle dorsiflexors 5/5. Ankle plantarflexors 5/5. Bed Mobility/Transfers: Rolling independent Supine to sit independent Sit to supine independent Sit to stand independent Stand to sit independent Bed to chair independent Chair to bed independent Gait: Patient exhibited reciprocal gait for 15 feet x 2 feet using a FWW with mild breathlessness after activity. She appeared to have decreased step length. Balance: Static Sitting: Normal Dynamic Sitting: Normal Static Standing: Fair Dynamic Standing: Fair Assessment: Patient is a 74-year-old female presenting with emesis, dehydration, EtOH withdrawal, and hypokalemia with impairments and functional limitations listed below requiring skilled PT services at the SNF. Patient has had multiple readmissions to this hospital related to ETOH abuse and may benefit from SNF placement on discharge in order to have a better prognosis and to decrease falls. Patient however is refusing said recommendation. Patient continues to present with clinical signs and symptoms consistent with current/admitting diagnoses that have resulted to mobility limitations, gait in stability, generalized weakness, and impairment of motor control as demonstrated by the following impairment level findings: 1. Impaired standing balance 2. Impaired activity tolerance Impairments continue to contribute to the following functional limitations: 1. Inability to safely ambulate without assistive device 2. Increase completion time for mobility ADL performance 3. Increased fall risk Goals: Goals X1 week 1. Supine-Sit independent MET 2. Sit-Supine independent MET 3. Sit-Stand independent MET 4. Stand-Sit independent MET 5. Bed-Chair independent MET 6. Chair-Bed independent MET 7. Independent gait on level surface with use of straight cane for at least 300 feet without report of pain nor dyspnea NOT MET 8. Independent stair negotiation while holding onto bilateral rails for at least 5 steps without report of pain nor dyspnea NOT MET 9. Independent with home exercise program NOT MET 10. Good static and dynamic standing balance/tolerance NOT MET DISCHARGE RECOMMENDATIONS: Patient will benefit from home health PT services in order to progress mobility level using least restrictive assistive ambulatory device, assess home safety, identify additional equipment needs, and establish a functional maintenance program that will increase ability of patient to remain at home. TREATMENT CODE/TIME: NC Thank you very much for this referral. Tawana Cruz PT, DPT, CLT [facility]
== END 2019-07-06 18:29 | disposition home health service (06) | DRG 392 ==
LOC: ER 19:07 → MS 20:00
PROVIDERS: Admitting Provider Family Medicine; Emergency Provider Physician Assistant; PCP Family Medicine; Visit Provider Internal Medicine
DX: K29.20 Alcoholic gastritis without bleeding (principal); J91.8 Pleural effusion in other conditions classified elsewhere; F10.239 Alcohol dependence with withdrawal, unspecified; J98.11 Atelectasis; E51.2 Wernicke's encephalopathy; E86.0 Dehydration; E83.42 Hypomagnesemia; E87.6 Hypokalemia; R05 Cough; R09.02 Hypoxemia; R50.9 Fever, unspecified; R19.09 Other intra-abdominal and pelvic swelling, mass and lump; S22.32XS Fracture of one rib, left side, sequela; X58.XXXS Exposure to other specified factors, sequela; R09.82 Postnasal drip
CPT/HCPCS: 36415; 71275; 72197; 74177; 80048; 80053; 80076; 83690; 84145; 85027; 87040; 87077; 93005; 96361; 96365; 96366; 96375; 97110; 97162; 97166; 97530; 97535; 99222; 99223; 99232; 99239; 99253; 99285; 71045; 71046; 78806; 80202; 80320; 81003; 82728; 83540; 83550; 83605; 83735; 83880; 84100; 84439; 84443; 84484; 85025; 85379; 85610; 86140; 87086; 87186; 93010; J0696; J1644; J1941; J2060; J2270; J2405; J3475; J3480; J3490; J7613

== ENCOUNTER 2019-07-10 18:11 | Observation (INO) | payer OTHER, SELFPAY ==
[2019-07-10] VITALS (7 sets, daily range): BP systolic 116–174; BP diastolic 82–95; PULSE 94–118; RESP 15–22; TEMP 36.6; O2SAT 94–98
--- NOTE | 2019-07-10 18:29 | W.ED.GENAD ---
Discharge Plan Disposition Patient Disposition: [facility] INPATIENT Condition: Fair Discharge Details Chief Complaint: Laceration Clinical Impression: Alcohol abuse, Hypertension, Falling, Tachycardia with heart rate 121-140 beats per minute, Forehead laceration Primary Care Provider: Lavelle Galindo ED Provider: Wes Dc [place] Meds and New Rx's Prescriptions: No Action venlafaxine 37.5 mg capsule,extended release 24hr 37.5 mg PO DAILY Qty: 30 RF: 11 venlafaxine 150 mg capsule,extended release 24hr 150 mg PO DAILY Qty: 30 RF: 11 ipratropium-albuterol 0.5 mg-3 mg(2.5 mg base)/3 mL solution for nebulization 3 ml IH QID PRN (Reason: shortness of breath) Qty: 90 RF: 3 gabapentin 300 mg capsule 300 mg PO BID Qty: 90 RF: 5 metoprolol tartrate 50 mg tablet 50 mg PO BID Qty: 60 RF: 2 hydrochlorothiazide 12.5 mg tablet 12.5 mg PO DAILY Qty: 90 RF: 3 amlodipine 10 mg tablet 10 mg PO DAILY Qty: 90 RF: 3 thiamine mononitrate (vit B1) [Vitamin B-1 (mononitrate)] 100 mg tablet 100 mg PO DAILY Qty: 90 RF: 3 folic acid 1 mg Tablet 1 mg PO DAILY Qty: 14 RF: 0 multivitamin [Multiple Vitamins] Tablet 1 tab PO DAILY Qty: 0 RF: 0 ibuprofen [IBU] 600 mg Tablet 600 mg PO TID PRN PRN (Reason: prn TMJ) Qty: 30 RF: 0 Refresh Plus 0.5 % Dropperette 1 drp OU Q4H WHILE AWAKE Qty: 30 RF: 0 fluticasone propionate 50 mcg/actuation [place],Suspension 1 spray NS DAILY Qty: 15.8 RF: 0 pantoprazole 40 mg Tablet,Delayed Release (Dr/Ec) 40 mg PO DAILY@0730 Qty: 0 RF: 0 magnesium chloride [Mag 64] 64 mg Tablet,Delayed Release (Dr/Ec) 128 mg PO BID@1000,2200 Qty: 120 RF: 0 Medical Decision Making <Megan Foster DO - Last Filed: 07/10/19 20:05> 1820 -- 74-year-old female who is well-known to the emergency department with a history of alcohol abuse and withdrawal, Warnicke's encephalopathy presents for evaluation after medical alarm activation and found on the ground at her home. Vitals within normal limits. Patient appears intoxicated. She does not provide any history. She has a 3 cm right lateral temporal face laceration. She is moving all of her extremities. She is complaining of pain in her left shoulder but there is no obvious orthopedic deformity. No C-spine/T-spine/L-spine tenderness. Abdomen soft nontender. Lungs clear. Discussed with patient that I would recommend labs and CT imaging but she is refusing all treatment at this time. She states I want to go home to my dog . When discussed that patient could possibly have an intracranial bleed, patient stated I do not care I hope I from this . While in the nurses station there was a loud thump noted and patient had climbed out of her bed and was on the ground naked. She is noted to have a 4 mm laceration to her left lateral baptism region which may be new since arrival. She has no other evidence of new injury. As patient is intoxicated, she is not able to make decisions for herself at this time and concern for intracranial or organ injury, a dose of 2 mg Ativan IM given. Will check screening labs, CT head/cervical spine/facial bones/chest/abdomen and pelvis. 1999 -- case endorsed to Dr. Dc to f/u on labs and imaging and final disposition. Medical Records Medical records reviewed: Yes I reviewed the patient's medical records. <Wes Dc MD - Last Filed: 07/11/19 07:44> Patient signed over to me from Dr. Foster pending imaging and laboratory studies. Patient known to me. She had presented after she was found by EMS on her floor at home. Also apparently had fall here out of stretcher. Please see Dr. Foster's note for initial presentation, evaluation. Lacerations repaired by Dr. Foster. Patient had received Ativan prior to signout. For me she has been mostly cooperative and sleeping. Laboratory studies show neutropenia which is chronic. She also has anemia which is chronic. Chemistries are unremarkable. Liver function is okay. CK normal. Troponin normal. Alcohol level 261. Imaging shows negative intracranial traumatic injury. She has scalp soft tissue swelling. Questionable fracture of the nasal bones of indeterminate age. Negative fracture of the cervical spine. Stable CT of the chest with no posttraumatic thoracic injury. She is noted to have slightly nodular thyroid gland as well as a spiculated 1 cm nodule in the right lung apex both of which appear to be stable. Also noted stable abdominal pelvic scan with no traumatic injury. She has fatty liver as well as subcutaneous nodules noted which have been present previously. She continues to sleep. Continues to remain a little tachycardic so we will give some LR. Will hold for observation until awake and sober for repeat evaluation. 7:30 AM - Patient has received a liter of LR overnight. Continues to remain tachycardic in the 120s and hypertensive. She is awake and alert otherwise with complaint of headache only. She does not seem anxious, agitated, tremulous. Seems unlikely to be withdrawal but given her history need to consider. Patient redosed with Ativan. Patient is agreeable to admission. Case discussed with hospitalist, Dr. Medina. He knows the patient well. Typically gets restarted on her medications including amlodipine, metoprolol, hydrochlorothiazide and vitals normalize. She has never truly had withdrawal. He is agreeable to admission as well. She will receive her dose of amlodipine and metoprolol here in the ED. Lab Data Lab results reviewed: Yes I reviewed the patient's lab results. ECG Data Attestation: I personally reviewed and interpreted this ECG (s) as follows: Prior ECG tracings: not available for review Interpretation: Sinus tachycardia at 106. Normal axis and intervals. Normal ST segments. Normal EKG. HPI <Megan Foster DO - Last Filed: 07/10/19 20:05> General Mode of arrival: EMS. Date/Time Provider Initiated Documentation: 07/10/19 18:27. Limitations to Documentation: altered mental status. Information obtained by: patient. HPI Narrative: Patient is a 74-year-old female who presents to the ED after patient's medical alarm was activated. EMS states they found patient laying on the floor. Patient arrives to the ED intoxicated and denies drinking. She cannot provide any history and only states I want to go home to my dog and I do not want anything done. Related Data Home Medications Medication Instructions Recorded Confirmed folic acid 1 mg PO DAILY #14 tab 08/11/18 07/11/19 pantoprazole 40 mg PO DAILY@0730 #0 tab 04/17/19 07/11/19 gabapentin 300 mg capsule 300 mg PO BID #90 cap 04/27/19 07/11/19 metoprolol tartrate 50 mg tablet 50 mg PO BID #60 tab 04/27/19 07/11/19 multivitamin [Multiple Vitamins] 1 tab PO DAILY #0 tab 05/03/19 07/11/19 hydrochlorothiazide 12.5 mg tablet 12.5 mg PO DAILY #90 tab 06/08/19 07/11/19 Refresh Plus 1 drp OU Q4H WHILE AWAKE #30 each 06/20/19 07/11/19 fluticasone propionate 1 spray NS DAILY #15.8 ml 06/20/19 07/11/19 ibuprofen [IBU] 600 mg PO TID PRN PRN #30 tab 06/20/19 07/11/19 ipratropium-albuterol 0.5 mg-3 3 ml IH QID PRN #90 ml 06/27/19 07/11/19 mg(2.5 mg base)/3 mL nebulization soln venlafaxine 150 mg 150 mg PO DAILY #30 cap 06/27/19 07/11/19 capsule,extended release 24 hr venlafaxine 37.5 mg 37.5 mg PO DAILY #30 cap 06/27/19 07/11/19 capsule,extended release 24 hr amlodipine 10 mg tablet 10 mg PO DAILY #90 tab 06/28/19 07/11/19 thiamine mononitrate (vit B1) 100 100 mg PO DAILY #90 tab 06/28/19 07/11/19 mg tablet magnesium chloride [Mag 64] 128 mg PO BID@1000,2200 #120 tab 07/06/19 07/11/19 Previous Rx's Medication Instructions Recorded folic acid 1 mg PO DAILY #14 tab 08/11/18 pantoprazole 40 mg PO DAILY@0730 #0 tab 04/17/19 gabapentin 300 mg capsule 300 mg PO BID #90 cap 04/27/19 metoprolol tartrate 50 mg tablet 50 mg PO BID #60 tab 04/27/19 multivitamin [Multiple Vitamins] 1 tab PO DAILY #0 tab 05/03/19 hydrochlorothiazide 12.5 mg tablet 12.5 mg PO DAILY #90 tab 06/08/19 Refresh Plus 1 drp OU Q4H WHILE AWAKE #30 each 06/20/19 fluticasone propionate 1 spray NS DAILY #15.8 ml 06/20/19 ibuprofen [IBU] 600 mg PO TID PRN PRN #30 tab 06/20/19 ipratropium-albuterol 0.5 mg-3 3 ml IH QID PRN #90 ml 06/27/19 mg(2.5 mg base)/3 mL nebulization soln venlafaxine 150 mg 150 mg PO DAILY #30 cap 06/27/19 capsule,extended release 24 hr venlafaxine 37.5 mg 37.5 mg PO DAILY #30 cap 06/27/19 capsule,extended release 24 hr amlodipine 10 mg tablet 10 mg PO DAILY #90 tab 06/28/19 thiamine mononitrate (vit B1) 100 100 mg PO DAILY #90 tab 06/28/19 mg tablet magnesium chloride [Mag 64] 128 mg PO BID@1000,2200 #120 tab 07/06/19 Allergies Allergy/AdvReac Type Severity Reaction Status Date / Time Penicillins Allergy Mild Rash Verified 07/11/19 07:29 ramipril Allergy Unknown ITCHING Verified 07/11/19 07:29 meperidine [From Demerol] AdvReac Severe Nausea Verified 07/11/19 07:29 bupropion AdvReac Mild GI upset Verified 07/11/19 07:29 AMBER Inhibitors AdvReac Unknown COUGH Verified 07/11/19 07:29 alendronate sodium AdvReac Unknown GI Distress Verified 07/11/19 07:29 clarithromycin AdvReac Unknown intolerant Verified 07/11/19 07:29 paroxetine AdvReac Unknown Diarrhea Verified 07/11/19 07:29 General Stated Complaint: Laceration JORDAN: 3 Review of Systems <Megan Foster DO - Last Filed: 07/10/19 20:05> All systems reviewed & are unremarkable except as noted in HPI and below Constitutional Constitutional: Reports as per HPI, Denies chills and Denies fever(s) Eyes Eyes: Denies blurry vision ENT Ears, Nose, Mouth, and Throat: Denies dizziness, Denies sore throat and Denies throat swelling Cardiovascular Cardiovascular: Denies chest pain and Denies dyspnea Respiratory Respiratory: Denies cough and Denies dyspnea Gastrointestinal Gastrointestinal: Denies abdominal pain, Denies diarrhea and Denies vomiting Genitourinary Genitourinary: Denies hematuria and Denies dysuria Musculoskeletal Musculoskeletal: Denies back pain and Denies numbness Integumentary/Breasts Skin/Breast: Denies lesions and Denies rash Neurologic Neurologic: Denies dizziness, Denies focal weakness and Denies numbness Allergic/Immunologic Allergic/Immunologic: Denies throat swelling [facility] <Megan Foster DO - Last Filed: 07/10/19 20:05> Medical History Alcohol abuse (Chronic) Alcoholic ketosis (Resolved) Allergic rhinitis (Chronic) Anemia (Chronic 12/20/16) Back pain, chronic (Chronic) Cataract (Chronic 11/07/15) Cervical radicular pain (Chronic) neck pain and [facility] Chronic alcoholic gastritis (Chronic 10/12/17) pls refrain from alcohol Corneal ulcer, right (Inactive ~08/23/18) 08/23/18; UV- Depression (Chronic) Elev transaminase/LDH (Chronic) due to alcohol Falling (Chronic) Genital herpes simplex (Chronic) recurrent gential; suppressive Valtrex GERD (gastroesophageal reflux disease) (Chronic) GI bleed (Chronic 12/20/16) Headache (Chronic) Hyperlipidemia (Chronic) Hypertension (Chronic) high today; she will check readings at home 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 Non-cardiac chest pain (Chronic 09/21/16) [facility] [place]16 NEGATIVE MP Osteoarthritis (Chronic) Osteopenia (Chronic) 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) Pleural effusion on left (Chronic) 03/11/19 [facility] Right rib fracture (Resolved) Sciatica (Chronic) right, epidural injuections [facility] Tendinitis of left rotator cuff (Inactive) Tubular adenoma of colon (Chronic 01/28/17) Urinary incontinence (Chronic) 01/24/13 urethral suspension and sling at [facility] (bladder suspension 1991) Wernicke encephalopathy (Chronic) Surgical History Bladder Surgery suspension Colonoscopy - MAC (01/28/17) EGD - MAC (12/20/16) Ligation of fallopian tube Repair bladder injury, simple Family History Mother No problems noted. Father , DROWNED at age 50. No problems noted. Sister Personal history of malignant neoplasm MELANOMA Sister No problems noted. Grandfather Personal history of malignant neoplasm STOMACH Grandfather Personal history of malignant neoplasm PROSTATE Grandmother Heart disease OR Acute ill-defined cerebrovascular disease Grandmother Personal history of malignant neoplasm UTERINE Aunt , OR Heart disease OR Aunt , OR Heart disease Brother No problems noted. Social History Smoking/Tobacco Use Status: Former Tobacco Use Alcohol Intake: current Alcohol Intake frequency: 3 or more drinks per day Alcohol type: hard liquor Drug use: Never Substance use type: does not use Details: Patient states her last alcohol intake was 2 days ago 05/19/19-pt states last drink was weeks ago Do you feel safe at home: Yes Do you feel safe in your relationship?: Yes Additional Social history: my caregiver is an anxiety attack person Exam <Megan Foster DO - Last Filed: 07/10/19 20:05> Const General: disheveled and intoxicated appearing HENKS Head: normal to inspection Ears: hearing grossly normal bilaterally, external ears normal and TM's normal bilaterally General nose exam: external nose normal Mouth: oral mucosae normal Teeth and gingiva: dentures Eyes General: appearance normal, both eyes and all related structures Periorbital: periorbital findings abnormal right periorbital swelling and periorbital tenderness; no erythema and no crepitus Pupils: pupil size on the right (Overlying haziness. Cataract? former eye injury, wears patch) 4 and on the left 2 EOM: EOM intact bilaterally Neck Neck: normal visual inspection and No submandibular swelling Lymphatic: no lymphadenopathy noted Chest Chest: normal inspection of the chest and no tenderness Resp Effort & Inspection: normal respiratory effort and able to speak in complete sentences Auscultation: clear to auscultation bilaterally Cardio Rate: regular rate Rhythm: regular rhythm GI Inspection: normal to inspection Palpation: soft, not firm, not rigid and nontender Auscultation: normal bowel sounds Back/Spine/Pelvis Cervical Spine: No cervical spinal tenderness Thoracic/Lumbar Spine: thoracic and lumbar spine normal to inspection, No thoracic spinal tenderness and No lumbar spinal tenderness Pelvis: no pain with anterior-posterior compression Skin General skin exam: no rashes or lesions noted Neuro General: alert, awake, oriented x3 and moves all extremities Speech: speech normal Motor: muscle tone normal throughout Sensory Exam: no sensory deficits noted Extrem General: normal to inspection, full ROM, normal capillary refill, no calf tenderness bilaterally and no edema Other: Pain in left shoulder with range of motion without obvious deformity, erythema, edema. Bilateral radial pulses intact. Psych Appearance: disheveled Mental Status: mental status grossly normal Speech and Movement: agitated Affect: hostile and irritable affect Course <Megan Foster DO - Last Filed: 07/10/19 20:05> Vital Signs Vital signs: Vital Signs Temperature 97.9 F 07/10/19 18:15 Pulse 94 H 07/10/19 18:15 Respiratory Rate 20 07/10/19 18:15 Blood Pressure 130/85 07/10/19 18:15 Pulse Oximetry 95 07/10/19 18:15 Temperature 97.9 F 07/10/19 18:15 Temperature Source Skin 07/10/19 18:15 Pulse 94 H 07/10/19 18:15 Respiratory Rate 20 07/10/19 18:15 Blood Pressure 130/85 07/10/19 18:15 Blood Pressure Position Supine 07/10/19 18:15 Pulse Oximetry 95 07/10/19 18:15 Oxygen Delivery Method Room Air 07/10/19 18:15 Oxygen Flow Rate 0 07/10/19 18:15 Procedures <Megan Foster DO - Last Filed: 07/10/19 20:05> Laceration Laceration 1: Site: face Side (If applicable): right Size (cm): 3 Description: linear and other (c shaped) Depth: simple, single layer Pre-repair: wound explored and irrigated extensively Skin layer closed with: other (dermabond) Sign Out <Megan Foster DO - Last Filed: 07/10/19 20:05> Sign Out Data: Sign Out Comment: Follow-up on labs and imaging and final disposition. Last updated by Megan Foster DO at 07/10/19 19:55
--- NOTE | 2019-07-10 18:51 | DI.CT_ITS ---
EXAM: CT CHEST/ABD/PEL W CLINICAL HISTORY: s/p fall, r/o acute organ injury TECHNIQUE: 98 mL of Omnipaque 350 COMPARISON: CT CHEST PE ABD AND PELVIS W from 06/30/2019 FINDINGS: There is no evidence of a hepatic or splenic laceration. The portal, superior mesenteric and splenic veins are patent. The gallbladder, bile ducts, pancreas, and adrenal glands appear stable. No acute abnormalities iden tified. There are stable bilateral renal cysts. No evidence of renal injury. The urinary bladder is intact. The reproductive organs are stable. The abdominal aorta is intact. Atherosclerosis. No significant abdominal or pelvic adenopathy, ascites, or pneumoperitoneum. The bowel shows no evidence of obstruction or inflammation. There is a small hiatal hernia. No acute fracture is present. There is stable grade 1 anterolisthesis of L4 on L5. 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 The thoracic aorta is intact. The heart is enlarged. No pericardial effusion is seen. No significant thoracic adenopathy is present. Left pleural effusion with subjacent infiltrate, which may represent atelectasis or pneumonia. No rig ht pleural effusion is seen. There is no pneumothorax. There is a 1 centimeter spiculated nodule in the right lung apex posteriorly. The tracheobronchial tree is unremarkable. Old healed bilateral rib fractures are noted. There is an old compression deformity of the inferior endplate of T12. IMPRESSION: 1. No acute abdominal or pelvic injury. 2. No acute thoracic injury. 3. 1 centimeter nodule in the right lung apex. Follow-up as clinically appropriate. This may includ e a 3-[address] scan of the chest based on the patient's risk factors.
[2019-07-10] MEDS: LORazepam 2 MG/ML VIAL IM (19:01)
--- NOTE | 2019-07-10 20:17 | NUR.NOTE ---
[facility] care of pt at 1900 Per previous nurse pt had unwitnessed fall in room. Pt lying in bed in NAD. Answering questions, pt agitated with staff you're all laughing at me, i'm just going to walk home. Right eyebrow and left yazidism wound cleansed with MD Cristian PEDERSON in to glue wounds. #20 to LAC, EKG done ST 105. Sitter with pt. Pt reports azeem shoulder pain x several days.
[2019-07-10 20:22] LABS: Abs Immature Grans 0.06 k/cumm (0.0-0.09); Absolute Basophil Count 0.05 k/cumm (0.0-0.2); Absolute Eosinophil Count 0.05 k/cumm (0.0-0.7); Absolute Monocyte Count 0.34 k/cumm (0.11-0.7); Absolute Neutrophil Count 1.43 k/cumm (1.2-6.7); Basophils % 1.5; Eosinophils % 1.5; HCT 32.8 % (36.0-46.0); HGB 10.1 g/dL (12.0-15.5); Immature Grans % 1.9; Lymphocytes % 40.2; Mean Corp. HGB Concentration 30.8 g/dL (32.0-36.0); Mean Corpuscular Volume 94.3 fL (80-95); Mean Platelet Volume 8.3 fL (8.0-11.0); Monocytes % 10.5; Neutrophils % 44.4; Platelet Count 430 x1000/uL (130-400); RBC 3.48 m/cumm (4.00-5.20); RBC Distribution Width 16.6 % (11.7-14.6); White Blood Cell Count 3.23 k/cumm (4.4-10.8)
[2019-07-10 20:30] LABS: ALT 31 U/L (14-59); AST 23 U/L (15-37); Albumin 3.6 g/dL (3.4-5.0); Alkaline Phosphatase 122 U/L (46-116); Anion Gap 13.4 mmol/L (3-11); BUN 11 mg/dL (7-18); Bilirubin, Total 0.3 mg/dL (0.2-1.0); CO2 23.6 mmol/L (21.0-32.0); CREATININE 0.89 mg/dL (0.55-1.02); Calcium 9.9 mg/dL (8.5-10.1); Chloride 106 mmol/L (98-107); Glucose 107 mg/dL (70-100); Potassium 3.8 mmol/L (3.5-5.1); Sodium 143 mmol/L (136-145); Total Protein 7.3 g/dL (6.4-8.2)
[2019-07-10 20:32] LABS: Creatine Kinase 43 U/L (26-192)
[2019-07-10 20:35] LABS: ETHANOL BLOOD 260.7 mg/dL (<3); Magnesium 1.7 mg/dL (1.8-2.4)
[2019-07-10 20:44] LABS: Troponin I < 0.05 ng/mL (0.00-0.06)
--- NOTE | 2019-07-10 21:00 | DI.CT_ITS ---
EXAM: CT HEAD CERV SPINE FACIAL WO CLINICAL HISTORY: b/l eyebrow lacerations TECHNIQUE: The studies were performed according to usual protocol. COMPARISON: CT HEAD WO from 05/01/2019 FINDINGS: CT brain: Age-appropriate cerebral atrophy and small vessel ischemic disease is present. The ventricles are in tact. The basilar cisterns are patent. No acute intracranial hemorrhage, midline shift or mass effe ct is present. No evidence of a calvarial fracture is present. There is a left frontal scalp hemato ma. There is periorbital soft tissue swelling on the right. There are minimally displaced fractures involving the nasal bones. CT scan of the cervical spine: There is no evidence of acute fracture or subluxation in the cervical spine. Moderately severe degen erative changes are present throughout the cervical spine. The odontoid is intact. The lateral mass es are well aligned. The prevertebral soft tissues are unremarkable. CT scan of the face: There are minimally displaced fractures involving the nasal bones bilaterally. The orbits and retro- orbital soft tissues are unremarkable. There is periorbital soft tissue swelling on the right. Ther e is a left frontal scalp hematoma. Nasal septum and turbinates are unremarkable. IMPRESSION: 1. No acute intracranial process. 2. Right periorbital soft tissue swelling. 3. Left frontal scalp hematoma. 4. Minimally displaced nasal bone fractures. 5. No acute fracture or subluxation of the cervical spine.
--- NOTE | 2019-07-10 21:19 | DI.VRAD_ITS ---
PROCEDURE INFORMATION: Exam: CT Head Without Contrast Exam date and time: 07/10/2019 8:40 PM Clinical history: 74 years old, female; Injury or trauma; Initial encounter; Blunt trauma (contusions or hematomas); Consciousness not specified; Eyelid; Upper right and upper left; Injury date: 07/10/19; Injury details: Fall, +etoh, lacerations bilat eyebrows TECHNIQUE: Imaging protocol: Computed tomography of the head without contrast. Radiation optimization: All CT scans at this facility use at least one of these dose optimization techniques: automated exposure control; mA and/or kV adjustment per patient size (includes targeted exams where dose is matched to clinical indication); or iterative reconstruction. COMPARISON: CT HEAD WO 05/01/2019 8:08 PM FINDINGS: Brain: Age related brain involution is present. No acute intracranial hemorrhage, mass effect, midline shift, or brain herniation. Diffuse subcortical and periventricular white matter hypodensities are most in favor with chronic small vessel disease. Ventricles: Compensatory exvacuo ventriculomegaly is present. Bones/joints: Concern for a minimally displaced bilateral nasal bone fracture. Sinuses: Visualized sinuses are unremarkable. No fluid levels. Mastoid air cells: Visualized mastoid air cells are well aerated. Orbits: There is asymmetriy of the lenses consistent with right intraocular lens prosthesis. Soft tissues: There is mild left frontal scalp soft tissue swelling and soft tissue emphysema, most likely related to a small laceration. There is mild right periorbital soft tissue swelling. IMPRESSION: 1. Negative for acute intracranial pathology. 2. Mild left frontal scalp soft tissue swelling and suggested small laceration. 3. Mild right periorbital soft tissue swelling. 4. Concern for a minimally displaced bilateral nasal bone fracture of indeterminate timeframe. Consider correlation with point tenderness at the level of the nasal bridge. PROCEDURE INFORMATION: Exam: CT Maxillofacial Without Contrast Exam date and time: 07/10/2019 8:40 PM Clinical history: 74 years old, female; Injury or trauma; Initial encounter; Blunt trauma (contusions or hematomas); Consciousness not specified; Eyelid; Upper right and upper left; Injury date: 07/10/19; Injury details: Fall, +etoh, lacerations bilat eyebrows TECHNIQUE: Imaging protocol: Computed tomography images of the face without contrast. Radiation optimization: All CT scans at this facility use at least one of these dose optimization techniques: automated exposure control; mA and/or kV adjustment per patient size (includes targeted exams where dose is matched to clinical indication); or iterative reconstruction. COMPARISON: CT HEAD WO 05/01/2019 8:08 PM FINDINGS: Orbits: There is asymmetriy of the lenses consistent with right intraocular lens prosthesis. Sinuses: Normal. No air-fluid levels. Bones/joints: Concern for a minimally displaced bilateral nasal bone fracture. No other acutely displaced fracture or dislocation is otherwise appreciated. Soft tissues: There is mild left frontal scalp soft tissue swelling and soft tissue emphysema, most likely related to a small laceration. There is mild right periorbital soft tissue swelling. IMPRESSION: 1. Mild left frontal scalp soft tissue swelling and suggested small laceration. 2. Mild right periorbital soft tissue swelling. 3. Concern for a minimally displaced bilateral nasal bone fracture of indeterminate timeframe. Consider correlation with point tenderness at the level of the nasal bridge. PROCEDURE INFORMATION: Exam: CT Cervical Spine Without Contrast Exam date and time: 07/10/2019 8:40 PM Clinical history: 74 years old, female; Injury or trauma; Initial encounter; Blunt trauma (contusions or hematomas); Consciousness not specified; Eyelid; Upper right and upper left; Injury date: 07/10/19; Injury details: Fall, +etoh, lacerations bilat eyebrows TECHNIQUE: Imaging protocol: Computed tomography images of the cervical spine without contrast. Radiation optimization: All CT scans at this facility use at least one of these dose optimization techniques: automated exposure control; mA and/or kV adjustment per patient size (includes targeted exams where dose is matched to clinical indication); or iterative reconstruction. COMPARISON: CT HEAD WO 05/01/2019 8:08 PM FINDINGS: Vertebrae: Multilevel degenerative changes of the vertebra are present, as manifested by multilevel anterior osteophytes, endplate sclerosis, and multilevel posterior disc osteophyte complexes. No acutely displaced fracture or dislocation. Discs/Spinal canal/Neural foramina: No spinal stenosis. No neural foraminal narrowing. Soft tissues: No acute soft tissue findings. Lungs: Nonspecific spiculated 1.0 cm nodule in the right lung apex. Linear atelectasis in the left lung apex. Vasculature: There are calcifications of the bilateral carotid bulbs. IMPRESSION: 1. Multilevel degenerative disease without acute skeletal pathology. 2. Nonspecific spiculated 1 cm nodule in the right lung apex. Highly suspicious pulmonary nodule(s). Recommend a complete CT Chest for further evaluation. Val Quarles, Fleischner Society, 2017. Dictated and Authenticated by: Max Luna MD. Ordering:KATE Guzman MD
--- NOTE | 2019-07-10 21:34 | DI.VRAD_ITS ---
PROCEDURE INFORMATION: Exam: CT Chest With Contrast Exam date and time: 07/10/2019 8:55 PM Clinical history: 74 years old, female; Injury or trauma; Initial encounter; Generalized; Blunt trauma (contusions or hematomas); Injury date: 07/10/19; Injury details: Fall, +etoh; Patient HX: S/P fall R/O acute organ injury TECHNIQUE: Imaging protocol: Computed tomography of the chest with intravenous contrast. Radiation optimization: All CT scans at this facility use at least one of these dose optimization techniques: automated exposure control; mA and/or kV adjustment per patient size (includes targeted exams where dose is matched to clinical indication); or iterative reconstruction. Contrast material: OMNIPAQUE 350; Contrast volume: 100 ml; Contrast route: IV; COMPARISON: CT CHEST PE ABD PELVIS W 06/30/2019 5:48 PM FINDINGS: Thyroid: Stable slightly nodular thyroid gland with subcentimeter hypodense nodules merits further evaluation with ultrasound in a nonemergent setting. Lungs: There is linear atelectasis in the right lung base. Low lung volumes causes crowding of the bronchovascular structures. Slightly spiculated 1 cm nodule in the right lung apex is stable. There is subpleural atelectasis of the dependent portions of the lungs. Pleural space: Stable slightly loculated left pleural effusion is again appreciated. No acute right pleural disease. Heart: The heart is markedly enlarged but stable. There is mild stable atherosclerotic calcification of the coronary arteries. No pericardial thickening or effusion. Pulmonary arteries: Normal in course and caliber. Aorta: There is a stable 4 cm mid ascending aortic aneurysm. No acute aortic pathology is otherwise appreciated. There is mild calcific atherosclerotic disease of the aorta noted. Lymph nodes: No adenopathy. Bones/joints: Stable multilevel bilateral old/healed rib fractures are again appreciated. No acutely displaced skeletal fractures are otherwise seen. Stable compression to the inferior endplate of T12. Soft tissues: Unremarkable. IMPRESSION: Essentially stable examination without acute posttraumatic thoracic injury, as detailed above. Note is made of a stable 1 cm nodule in the right lung apex. For both low risk and high risk patients, consider CT at 3 months, PET/CT or biopsy. (Val et al., Fleischner Society, 2017) PROCEDURE INFORMATION: Exam: CT Abdomen And Pelvis With Contrast Exam date and time: 07/10/2019 8:55 PM Clinical history: 74 years old, female; Injury or trauma; Initial encounter; Generalized; Blunt trauma (contusions or hematomas); Injury date: 07/10/19; Injury details: Fall, +etoh; Patient HX: S/P fall R/O acute organ injury TECHNIQUE: Imaging protocol: Computed tomography of the abdomen and pelvis with intravenous contrast. Radiation optimization: All CT scans at this facility use at least one of these dose optimization techniques: automated exposure control; mA and/or kV adjustment per patient size (includes targeted exams where dose is matched to clinical indication); or iterative reconstruction. Contrast material: OMNIPAQUE 350; Contrast volume: 100 ml; Contrast route: IV; COMPARISON: CT CHEST PE ABD PELVIS W 06/30/2019 5:48 PM FINDINGS: Mediastinum: A moderate hiatal hernia is present. Liver: There is a diffuse decrease in hepatic parenchymal density, consistent with fatty infiltration. Gallbladder and bile ducts: Normal. No calcified stones. No ductal dilation. Pancreas: There is diffuse atrophy of the pancreatic parenchyma. Spleen: Normal. No splenomegaly. Adrenals: Stable appearance of the left adrenal gland. No acute adrenal findings otherwise. Kidneys and ureters: Stable bilateral renal cysts and other hypodense renal lesions which are too small to characterize but most probably benign representing cysts. No acute renal findings. No obstructive uropathy. Stomach and bowel: There is no evidence of intestinal perforation or obstruction. There is moderately excessive colonic stool content. Appendix: No evidence of appendicitis. Intraperitoneal space: Unremarkable. No free air. No significant fluid collection. Vasculature: The vasculature demonstrates diffuse moderate atherosclerotic calcification. Lymph nodes: Unremarkable. No enlarged lymph nodes. Bladder: Unremarkable as visualized. Reproductive: Unremarkable as visualized. Bones/joints: No acute skeletal pathology. Moderate multilevel degenerative changes of the spine, as manifested by multilevel anterior osteophytes and multilevel decrease in intervertebral disc space. Stable grade 1 anterolisthesis of L4 in relation to L5. Soft tissues: Stable 1.5 cm subcutaneous nodule in the left abdominal wall near the iliac crest on image 781 series 5. Multiple subcutaneous nodules in the anterior abdominal and pelvic wall most likely represent injection granuloma in the appropriate clinical setting. Other findings: Stable cluster of soft tissue masses/nodules in the presacral region measuring 3.8 cm x 3 cm. This is nonspecific, however raises concern for infiltrative disease. IMPRESSION: Essentially stable examination without acute posttraumatic abdominopelvic injury. Dictated and Authenticated by: Max Luna MD. Ordering:KATE Guzman MD
--- NOTE | 2019-07-10 23:14 | NUR.NOTE ---
Pt sleeping on back, even unlabored resp. Easily arousable to voice.
[2019-07-11] VITALS (11 sets, daily range): BP systolic 150–189; BP diastolic 78–107; PULSE 99–124; RESP 16–94; TEMP 36.5–37.4; O2SAT 94–100
[2019-07-11] MEDS: Lactated Ringers 500 ML IV
[2019-07-11] MEDS: Ondansetron 4 MG/2 ML VIAL IVP (00:18)
[2019-07-11] MEDS: Lactated Ringers 1,000 ML 125 ML IV (03:00)
--- NOTE | 2019-07-11 05:46 | NUR.NOTE ---
Pt sleeping on back, even unlabored resp. Arousable to voice. Denies pain when awake. Inct of large amount of urine, inct care provided. Toño PO fluids. LR infusing a/o. Pt reports dizziness when turning.
[2019-07-11] MEDS: LORazepam 2 MG/ML VIAL 1 MG IVP (07:17)
[2019-07-11] MEDS: Normal Saline Flush 10 ML SYR IVP (07:20)
[2019-07-11] MEDS: Metoprolol 50 MG TAB PO ×2 (07:40→20:44)
[2019-07-11] MEDS: amLODIPine 5 MG TAB 10 MG PO (07:41)
[2019-07-11] MEDS: Folic Acid 1 MG TAB PO (10:12)
[2019-07-11] MEDS: Acetaminophen 325 MG TAB PO ×2 (10:12→20:44)
[2019-07-11] MEDS: Thiamine 100 MG TAB PO (10:12)
[2019-07-11] MEDS: Magnesium Chloride 64 MG TABCR 128 MG PO ×2 (10:12→20:45)
[2019-07-11] MEDS: Refresh PLUS Eye Drops 0.4ml OU ×3 (10:13→23:07)
[2019-07-11] MEDS: hydroCHLOROthiazide 12.5 MG TAB PO (10:13)
[2019-07-11] MEDS: Pantoprazole 40 MG TABCR PO (10:13)
[2019-07-11] MEDS: Gabapentin 300 MG CAP PO ×2 (10:13→20:44)
[2019-07-11] MEDS: Multivitamin TAB 1 TAB PO (10:13)
[2019-07-11] MEDS: Venlafaxine 150 MG CAPCR PO (10:15)
[2019-07-11] MEDS: Venlafaxine 37.5 MG CAPCR PO (10:15)
[2019-07-11] MEDS: Enoxaparin 40 MG/0.4 ML SYR SC (10:15)
[2019-07-11] MEDS: Normal Saline 1,000 ML 125 ML IV ×2 (10:20→18:18)
--- NOTE | 2019-07-11 10:59 | PT.INIE ---
Date of service: 07/11/19 Time of Service: 10:39 PT Notes Inpatient Physical Therapy Evaluation Date: 07/11/2019 Referring Doctor: Robert Medina MD PT Orders: PT CONSULT: Eval/Treat for limited ability.? Precautions: Fall. Standard. Activity as tolerated. Patient Profile/Admitting Diagnosis: Patient is a 74-year-old female with past medical history significant for ETOH abuse, back pain, depression, and frequent falling who presented to the ED 07/10/2019 via EMS with chief presentation of intoxication. Patient was reportedly found on the floor upon arrival of EMS personnel at home. Patient is found to be tachycardic and hypertensive. PMHX: Medical History Alcohol abuse (Chronic) Alcoholic ketosis (Resolved) Allergic rhinitis (Chronic) Anemia (Chronic 12/20/16) Back pain, chronic (Chronic) Cataract (Chronic 11/07/15) Cervical radicular pain (Chronic) Chronic alcoholic gastritis (Chronic 10/12/17) Depression (Chronic) Elev transaminase/LDH (Chronic) Falling (Chronic) Genital herpes simplex (Chronic) GERD (gastroesophageal reflux disease) (Chronic) GI bleed (Chronic 12/20/16) Headache (Chronic) Hyperlipidemia (Chronic) Hypertension (Chronic) Macrocytosis (Chronic 09/26/14) Multiple rib fractures (Acute) Non-cardiac chest pain (Chronic 09/21/16) Osteoarthritis (Chronic) Osteopenia (Chronic) 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) Pleural effusion on left (Acute) Right rib fracture (Resolved) Sciatica (Chronic) Tubular adenoma of colon (Chronic 01/28/17) Urinary incontinence (Chronic) Wernicke encephalopathy (Chronic) Surgical History Bladder Surgery Colonoscopy - MAC (01/28/17) EGD - MAC (12/20/16) Ligation of fallopian tube Repair bladder injury, simple Social History/Home Situation: Leticia lives in a private home in [place]. She has a caregiver who comes in daily 5 days per week for 2 hours each time to assist with laundry, minor house chores, and grocery shopping. Patient is independent with MRADLs using a straight cane. She has a walker which she states she does not use often. She receives meals on wheels. She no longer drives. She was recently discharged from this hospital on 06/18/2019 at independent with a straight cane for all level surface ambulation. Equipment Owned/DME: FWW, SC, grab bars, emergency alert device Subjective: Patient is agreeable to a PT evaluation and treatment today. When asked about what happened to her right eyebrow patient responds slight dog jumped on me. She denies headache, dizziness, and chest pain throughout PT session. Objective: General Observation: Leticia was seen lying in bed upon arrival of this PT. Appears to be mildly lethargic but was able to participate with ambulation activity with encouragement. IV in right UE. Right supraorbital laceration and left lateral temporal laceration noted. Mental Status: Mildly lethargic but oriented x4 Pain: 0/10 ROM: Right Upper Extremity: Shoulder Flexion WFL. Shoulder abduction WFL. Elbow flexion WFL. Wrist flexion WFL. Functional opening and closing of hand WFL. Left Upper Extremity: Shoulder Flexion WFL. Shoulder abduction WFL. Elbow flexion WFL. Wrist flexion WFL. Functional opening and closing of hand WFL. Right Lower Extremity: Hip flexion WFL. Hip abduction WFL. Knee flexion WFL. Ankle dorsiflexion WFL. Ankle plantarflexion WFL. Left Lower Extremity: Hip flexion WFL. Hip abduction WFL. Knee flexion WFL. Ankle dorsiflexion WFL. Ankle plantarflexion WFL. Strength: Right Upper Extremity: Shoulder flexors 4/5. Shoulder abductors 4/5. Elbow flexors 4/5. Elbow extensors 4/5. Outbound Sales Professional strong. Left Upper Extremity: Shoulder flexors 4/5. Shoulder abductors 4/5. Elbow flexors 4/5. Elbow extensors 4/5. Outbound Sales Professional strong. Right Lower Extremity: Hip flexors 4-/5. Hip abductors 4-/5. Knee flexors 4-/5. Knee extensors 4-/5. Ankle dorsiflexors 4-/5. Ankle plantarflexors 4-/5. Left Lower Extremity:Hip flexors 4-/5. Hip abductors 4-/5. Knee flexors 4-/5. Knee extensors 4-/5. Ankle dorsiflexors 4-/5. Ankle plantarflexors 4-/5. Bed Mobility/Transfers: Rolling CGA Supine to sit CGA Sit to supine CGA Sit to stand CGA Stand to sit CGA Bed to chair CGA Chair to bed CGA Gait: Patient exhibited reciprocal gait for 120 feet feet using a FWW with mild breathlessness after activity requiring CGA from PT. She appeared to have decreased step length. Balance: Static Sitting: Normal Dynamic Sitting: Normal Static Standing: Fair Dynamic Standing: Fair Special Tests: Mobility Limitations Standardized Measure [facility] AM-PAC 6 clicks Basic Mobility Inpatient Short Form: Raw Score: 18 CMS Score: 47 % deficit Informed Consent/Education: Patient instructed in purpose of PT consult and plan of care. Assessment: Patient is a 74-year-old female with past medical history significant for ETOH abuse, back pain, depression, and frequent falling who presented to the ED 07/10/2019 via EMS with chief presentation of intoxication. Patient was reportedly found on the floor upon arrival of EMS personnel at home. Patient is found to be tachycardic and hypertensive and demonstrates with impairments and functional limitations listed below requiring skilled PT services at the SNF. Patient has had multiple readmissions to this hospital related to ETOH abuse and may benefit from SNF placement on discharge in order to have a better prognosis and to decrease falls. Patient was given advice about said recommendation but continues to be firm about going home. Her prognosis for thriving at home is poor. Patient presents with clinical signs and symptoms consistent with current/admitting diagnoses that have resulted to mobility limitations, gait instability, generalized weakness, and impairment of motor control as demonstrated by the following impairment level findings: 1. Decreased strength to B LE major muscle groups 2. Impaired standing balance 3. Impaired activity tolerance Impairments are contributing to the following functional limitations: 1. Increased dependence with transfers 2. Inability to safely ambulate without assistive device and physical assistance 3. Increase completion time for mobility ADL performance 4. Increased fall risk 5. Inability to negotiate steps alone safely Patient is assessed as a 62909 moderate complexity based on the following: History: Patient is a 74-year-old female presenting with emesis, dehydration, EtOH withdrawal, and hypokalemia with impairments and functional limitations listed below requiring skilled PT services at the SNF Examination: Demonstrable impairment in strength, balance, and range of motion with underlying impairments and functional limitations as documented above Presentation: Evolving Decision Makin moderate complexity Goals: Goals X1 week 1. Supine-Sit independent 2. Sit-Supine independent 3. Sit-Stand independent 4. Stand-Sit independent 5. Bed-Chair independent 6. Chair-Bed independent 7. Independent gait on level surface with use of straight cane for at least 300 feet without report of pain nor dyspnea 8. Independent stair negotiation while holding onto bilateral rails for at least 5 steps without report of pain nor dyspnea 9. Independent with home exercise program 10. Good static and dynamic standing balance/tolerance DISCHARGE RECOMMENDATIONS: Patient is recommended to be discharged to a SNF with continued PT treatment and use of SC during ambulatory activities. TREATMENT CODE/TIME: 59501 x 27 minutes beginning at 10:39 AM. Thank you very much for this referral. Tawana Cruz PT, DPT, CLT [facility]
--- NOTE | 2019-07-11 12:20 | HPE_ITS ---
Date of service: 07/11/19 Time of Service: 12:20 Assessment and Plan Assessment and plan (1) Alcohol abuse: Status: Chronic Assessment and plan: Currently showing no signs of withdrawl. Of note, patient has not shown any signs of withdrawl during multiple prior hospitalizations, with lone tachycardia and HTN being due to repeated medication noncompliance (BB therapy, antihypertensive regimen), and tremors and headache being chronic findings. No hallucinations or diaphoresis in the past or current ly. Has previously declined offers for multiple different strategies aimed at assisting her at home and as an outpatient. Has also been dropped by Home Health Services due to intoxication during visits, limiting their ability to effectively help. Has in the past expressed some interest in a sobriety quality assurance coach. Discussed importance of abstinence in detail with patient on multiple prior occasions. With multiple falls while intoxicated the patient has had frequent hospitalizations with injuries, and has spent time undergoing PT evaluation as well as SNF placement. Highly doubt that there will be any effective way of helping her upon return home in any way that is meaningful or has lasting effec ts, but will ask for official PT evaluation again and request Case Management in assistance for any further tools that may be able to assist Mrs. aGrza long-term. (2) Hypertension: Status: Chronic Assessment and plan: Restart home regimen of BB, CCB, and thiazide diuretic. Monitor blood pressure. Qualifiers: Hypertension type: essential hypertension Qualified Code(s): I10 - Essential (primary) hypertension (3) Tachycardia: Status: Acute Assessment and plan: Likely due to intoxication, concurrent dehydration, and non-compliance with BB therapy. (4) Nodule of upper lobe of right lung: Status: Acute Assessment and plan: Needs follow-up and further evaluation as outpatient. (5) Chronic alcoholic gastritis: Status: Chronic Assessment and plan: With prior history of GIB. Continue PPI therapy. (6) Renal mass: Status: Suspected Assessment and plan: Will need contrast-enhanced CT or renal protocol MRI for full evaluation - currently planning for outpatient. (7) DVT prophylaxis: Status: Acute Assessment and plan: Enoxaparin. (8) Advance directive on file: Status: Acute Assessment and plan: DNR/DNI. History of Present Illness History of Present Illness Chief Complaint: Fall Narrative: 73-year-old woman with a history of chronic alcoholism and frequent falls while intoxicated, HTN a nd medication non-compliance, being admitted from [facility] Emergency Department on 07/11 after a fall at home while inebriated. Ms. Garza has a Past Medical History significant for EtOH abuse with f requent falls while intoxicated, HTN, GERD, prior GIB and Gastritis, as well as a history of alcoholic pancreatitis. She has been seen in the ED on multiple occasions after falls, and was hospitalized here with fractures in the past. She was hospitalized at [facility] between 03/11 and 03/21 with rib fractures and hemothorax, requiring placement of a chest tube. She was also hospitalized here between 06/30 and 07/06 with sepsis from a pulmonary source. She has despite prior elevated CIWA scores while inpatient never been noted to be acutely in significant withdrawl, specifically without noted diaphoresis, tremors, or hallucinations. Her significant hypertension and tachycardia have always been on the basis of acute alcohol intoxication, dehydration, and non-compliance with her home antihypertensives. The patient presented to the ED after medical bracelet activation, found on the ground at her home by EMS. She was noted to be intoxicated and with a small facial laceration. She also suffered an unwitnessed fall while in the ED. Work-up showed essentially unremarkable labs, and imaging was positive for a questionable fracture of the nasal bone (Indeterminate age), as well as a stable spiculated 1cm right lung nodule. She also has a lobulated mass of the presacral soft tissue that may represent a low grade malignancy, by recent MRI, and by review of prior images also has 2 cystic lesions of the right kidney by ultrasound, with recommendations for additional contrast-enhanced CT or renal protocol MRI for full evaluation. She was also noted to be tachycardic and hypertensive, and administered IVFs and allowed to sleep overnight in the ED. However, as she remained with an elevated HR and blood pressure this morning, the patient was referred for admission for further evaluation and treatment. Review of Systems All systems reviewed & are unremarkable except as noted in HPI and below [facility] Medical History Alcohol abuse (Chronic) Alcoholic ketosis (Resolved) Allergic rhinitis (Chronic) Anemia (Chronic 12/20/16) Back pain, chronic (Chronic) Cataract (Chronic 11/07/15) Cervical radicular pain (Chronic) neck pain and DJD [facility] Chronic alcoholic gastritis (Chronic 10/12/17) pls refrain from alcohol Corneal ulcer, right (Inactive ~08/23/18) 08/23/18; [facility]- Depression (Chronic) Elev transaminase/LDH (Chronic) due to alcohol Falling (Chronic) Genital herpes simplex (Chronic) recurrent gential; suppressive Valtrex GERD (gastroesophageal reflux disease) (Chronic) GI bleed (Chronic 12/20/16) Headache (Chronic) Hyperlipidemia (Chronic) Hypertension (Chronic) high today; she will check readings at home 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 Multiple rib fractures (Acute) 03/11/19 [facility] Non-cardiac chest pain (Chronic 09/21/16) [facility] 09/21/16 NEGATIVE MP Osteoarthritis (Chronic) Osteopenia (Chronic) 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) Pleural effusion on left (Chronic) 03/11/19 [facility] Right rib fracture (Resolved) Sciatica (Chronic) right, epidural injuections [facility] Tendinitis of left rotator cuff (Inactive) Tubular adenoma of colon (Chronic 01/28/17) Urinary incontinence (Chronic) 01/24/13 urethral suspension and sling at [facility] (bladder suspension 1991) Wernicke encephalopathy (Chronic) Surgical History Bladder Surgery suspension Colonoscopy - [facility] (01/28/17) EGD - [facility] (12/20/16) Ligation of fallopian tube Repair bladder injury, simple Family History Mother No problems noted. Father , DROWNED at age 50. No problems noted. Sister Personal history of malignant neoplasm MELANOMA Sister No problems noted. Grandfather Personal history of malignant neoplasm STOMACH Grandfather Personal history of malignant neoplasm PROSTATE Grandmother Heart disease [place] Acute ill-defined cerebrovascular disease Grandmother Personal history of malignant neoplasm UTERINE Aunt , [place] Heart disease [place] Aunt , [place] Heart disease Brother No problems noted. Social History Smoking/Tobacco Use Status: Former Tobacco Use Alcohol Intake: current Alcohol Intake frequency: 3 or more drinks per day Alcohol type: hard liquor Drug use: Never Substance use type: does not use Details: Patient states her last alcohol intake was 2 days ago 05/19/19-pt states last drink was weeks ago Do you feel safe at home: Yes Do you feel safe in your relationship?: Yes Additional Social history: my caregiver is an anxiety attack person Meds Home Medications and Allergies Home Medications Medication Instructions Recorded Confirmed Type folic acid 1 mg PO DAILY #14 tab 08/11/18 07/11/19 Rx pantoprazole 40 mg PO DAILY@0730 #0 tab 04/17/19 07/11/19 Rx gabapentin 300 mg capsule 300 mg PO BID #90 cap 04/27/19 07/11/19 Rx metoprolol tartrate 50 mg tablet 50 mg PO BID #60 tab 04/27/19 07/11/19 Rx multivitamin [Multiple Vitamins] 1 tab PO DAILY #0 tab 05/03/19 07/11/19 Rx hydrochlorothiazide 12.5 mg tablet 12.5 mg PO DAILY #90 tab 06/08/19 07/11/19 Rx Refresh Plus 1 drp OU Q4H WHILE AWAKE #30 each 06/20/19 07/11/19 Rx fluticasone propionate 1 spray NS DAILY #15.8 ml 06/20/19 07/11/19 Rx ibuprofen [IBU] 600 mg PO TID PRN PRN #30 tab 06/20/19 07/11/19 Rx ipratropium-albuterol 0.5 mg-3 3 ml IH QID PRN #90 ml 06/27/19 07/11/19 Rx mg(2.5 mg base)/3 mL nebulization soln venlafaxine 150 mg 150 mg PO DAILY #30 cap 06/27/19 07/11/19 Rx capsule,extended release 24 hr venlafaxine 37.5 mg 37.5 mg PO DAILY #30 cap 06/27/19 07/11/19 Rx capsule,extended release 24 hr amlodipine 10 mg tablet 10 mg PO DAILY #90 tab 06/28/19 07/11/19 Rx thiamine mononitrate (vit B1) 100 100 mg PO DAILY #90 tab 06/28/19 07/11/19 Rx mg tablet magnesium chloride [Mag 64] 128 mg PO BID@1000,2200 #120 tab 07/06/19 07/11/19 Rx Allergies Allergy/AdvReac Type Severity Reaction Status Date / Time Penicillins Allergy Mild Rash Verified 07/11/19 07:29 ramipril Allergy Unknown ITCHING Verified 07/11/19 07:29 meperidine [From Demerol] AdvReac Severe Nausea Verified 07/11/19 07:29 bupropion AdvReac Mild GI upset Verified 07/11/19 07:29 AMBER Inhibitors AdvReac Unknown COUGH Verified 07/11/19 07:29 alendronate sodium AdvReac Unknown GI Distress Verified 07/11/19 07:29 clarithromycin AdvReac Unknown intolerant Verified 07/11/19 07:29 paroxetine AdvReac Unknown Diarrhea Verified 07/11/19 07:29 Exam Narrative Exam Narrative: General: Patient appears comfortable, sleeping but arousable, NAD Neck: Supple CV: Regular, mildly tachycardic, No rubs, murmurs, or gallops. Pulmonary: Clear to auscultation bilaterally, no crackles, wheezing, or rhonchi on limited anterior and lateral exam Abdomen: + Bowel Sounds, soft, nontender, nondistended Vascular: No lower extremity edema Results Labs Result diagrams: 07/10/19 20:00 07/10/19 20:00 Labs: Laboratory Results - last 24 hr 07/10/19 07/10/19 07/10/19 20:00 20:00 20:00 WBC 3.23 L RBC 3.48 L Hgb 10.1 L Hct 32.8 L MCV 94.3 MCH 29.0 MCHC 30.8 L RDW 16.6 H Plt Count 430 H MPV 8.3 Immature Gran % 1.9 Neutrophils % 44.4 Lymphocytes % 40.2 Monocytes % 10.5 Eosinophils % 1.5 Basophils % 1.5 Absolute Neutrophils 1.43 Absolute Lymphocytes 1.30 Absolute Monocytes 0.34 Absolute Eosinophils 0.05 Absolute Basophils 0.05 Sodium 143 Potassium 3.8 Chloride 106 Carbon Dioxide 23.6 Anion Gap 13.4 H BUN 11 Creatinine 0.89 Estimated GFR/1.73 m2 >= 60.00 Glucose 107 H Calcium 9.9 Magnesium 1.7 L Total Bilirubin 0.3 AST 23 ALT 31 Alkaline Phosphatase 122 H Creatine Kinase Troponin I < 0.05 Total Protein 7.3 Albumin 3.6 Ethyl Alcohol 260.7 07/10/19 20:00 WBC RBC Hgb Hct MCV MCH MCHC RDW Plt Count MPV Immature Gran % Neutrophils % Lymphocytes % Monocytes % Eosinophils % Basophils % Absolute Neutrophils Absolute Lymphocytes Absolute Monocytes Absolute Eosinophils Absolute Basophils Sodium Potassium Chloride Carbon Dioxide Anion Gap BUN Creatinine Estimated GFR/1.73 m2 Glucose Calcium Magnesium Total Bilirubin AST ALT Alkaline Phosphatase Creatine Kinase 43 Troponin I Total Protein Albumin Ethyl Alcohol Last Vital Signs Temp 36.9 C 07/11/19 10:58 Pulse 101 H 07/11/19 10:58 Resp 18 07/11/19 10:58 BP 173/103 H 07/11/19 10:58 Pulse Ox 96 07/11/19 10:58
--- NOTE | 2019-07-11 14:22 | PT.INTREAT ---
Date of service: 07/11/19 Time of Service: 14:22 PT Notes 07/11/19 SUBJECTIVE: Leticia stating she has a headache and wants some medication for this. Nursing is aware. She notes significant dizziness upon rising from her bed. OBJECTIVE: Supine in bed. Agreeable to PT. TRANSFERS Supine to sit: SBA Sit to supine: SBA Sit to stand: CGA Stand to sit: CGA GAIT Device: FWW Weight bearing: Full Assist: CGA Distance: 20'+40' Deviation: Walker management Toileting: Max A with toileting and donning brief. ASSESSMENT: Gait limited by her dizziness this afternoon with nursing present throughout treatment. She tends to run into furniture as she is walking and requires assist with managing her walker. PLAN: Continue current POC progressing functional mobility and strength. Treatment time: 15 minutes [id number] Odette Saul PTA Clinic location: [facility] [place], [place]
[2019-07-11] MEDS: Ibuprofen 600 MG TAB PO (14:53)
[2019-07-12 00:10] VITALS: BP 146/84; PULSE 86; RESP 19; TEMP 36.8; O2SAT 95
[2019-07-12] MEDS: LORazepam 1 MG TAB PO (00:24)
[2019-07-12] MEDS: Refresh PLUS Eye Drops 0.4ml OU ×5 (03:39→20:09)
[2019-07-12 05:01] VITALS: BP 180/92; PULSE 91; RESP 16; TEMP 36.8; O2SAT 95
[2019-07-12] MEDS: Pantoprazole 40 MG TABCR PO (06:51)
[2019-07-12 07:25] VITALS: BP 167/83; PULSE 93; RESP 18; TEMP 37; O2SAT 93
[2019-07-12 07:31] LABS: Abs Immature Grans 0.01 k/cumm (0.0-0.09); Absolute Basophil Count 0.02 k/cumm (0.0-0.2); Absolute Eosinophil Count 0.07 k/cumm (0.0-0.7); Absolute Lymphocyte Count 1.17 k/cumm (1.2-3.4); Absolute Neutrophil Count 1.91 k/cumm (1.2-6.7); Basophils % 0.6; HCT 28.4 % (36.0-46.0); Immature Grans % 0.3; Lymphocytes % 33.6; Mean Corp. HGB Concentration 31.7 g/dL (32.0-36.0); Mean Corpuscular Hemoglobin 29.5 pg (27.0-33.0); Mean Corpuscular Volume 93.1 fL (80-95); Mean Platelet Volume 8.6 fL (8.0-11.0); Monocytes % 8.6; Neutrophils % 54.9; Platelet Count 407 x1000/uL (130-400); RBC 3.05 m/cumm (4.00-5.20); RBC Distribution Width 15.5 % (11.7-14.6); White Blood Cell Count 3.48 k/cumm (4.4-10.8)
[2019-07-12 07:32] LABS: Anion Gap 9.5 mmol/L (3-11); BUN 10 mg/dL (7-18); CO2 28.5 mmol/L (21.0-32.0); CREATININE 0.77 mg/dL (0.55-1.02); Calcium 9.8 mg/dL (8.5-10.1); Chloride 100 mmol/L (98-107); Glucose 114 mg/dL (70-100); Magnesium 1.6 mg/dL (1.8-2.4); Potassium 3.3 mmol/L (3.5-5.1); Sodium 138 mmol/L (136-145)
[2019-07-12 07:58] LABS: Anisocytosis 1+; Diff Comment RBC Morph Reviewed; Polychromasia Present
[2019-07-12] MEDS: Thiamine 100 MG TAB PO (08:05)
[2019-07-12] MEDS: Folic Acid 1 MG TAB PO (08:05)
[2019-07-12] MEDS: amLODIPine 10 MG TAB PO (08:06)
[2019-07-12] MEDS: Venlafaxine 37.5 MG CAPCR PO (08:06)
[2019-07-12] MEDS: Venlafaxine 150 MG CAPCR PO (08:06)
[2019-07-12] MEDS: Multivitamin TAB 1 TAB PO (08:07)
[2019-07-12] MEDS: Acetaminophen 325 MG TAB PO (08:07)
[2019-07-12] MEDS: hydroCHLOROthiazide 12.5 MG TAB PO (08:07)
[2019-07-12] MEDS: Spironolactone 25 MG TAB PO ×2 (08:07→20:09)
[2019-07-12] MEDS: Gabapentin 300 MG CAP PO ×2 (08:07→20:09)
[2019-07-12] MEDS: Metoprolol 50 MG TAB PO ×2 (08:07→20:09)
--- NOTE | 2019-07-12 08:15 | PHARADMIT ---
Admission Pharmacy Clinical Review ETOH INTOXICATION, BP MEDICATION NON-COMPLIANCE Code Status DNR/DNI Current Weight Wgt-63.4 kg Renally Cleared and Narrow Therapeutic Index Meds CrCl~47.26 mL/min Meds-OK QTc Value / Action Taken QTc-465 (Protonix, ) BP Control, Fever BP- 180/92 Tmax-36.8C Electrolytes reviewed Na-138 K+3.3 Mag-1.6 DVT Prophylaxis Lovenox Opiate Usage / Scheduled Bowel Regimen Ordered No Yes Plt/SCr for Heparin / Enoxaparin Plts-407 SCr-0.77 INR for Warfarin NA H/H stable, WBC/Bands H&H- 9.0/28.4 WBC-3.48 Antibiotic appropriateness none Cultures and Sensitivities none Surgical ABX d/c within 24 hr NA DM control / Insulin Dosing [id number] Heart Failure (Check EF%) (AMBER's, B-Block, Diuretics) Norvasc, Hydralazine,HCTZ, Lopressor, Spironolactone IV to PO Switch No Home Meds Reviewed Yes Home Meds Not Ordered Vit-D, Naltrexone spray, Zantac Comments ETOH-260.7
[2019-07-12] MEDS: Enoxaparin 40 MG/0.4 ML SYR SC (10:01)
[2019-07-12] MEDS: Magnesium Chloride 64 MG TABCR 128 MG PO ×2 (10:01→21:27)
--- NOTE | 2019-07-12 10:41 | PDOC.CMIN ---
- If Service Date Differs Date of service: 07/12/19 Time of Service: 10:41 Care Management Initial Assess REASON FOR HOSPITALIZATION:: ETOH intoxication, BP medication non-compliance. PAST MEDICAL HISTORY/PAST SURGICAL HISTORY:: Medical History: Alcohol abuse, Alcoholic ketosis, Allergic rhinitis, Anemia, Back pain, chronic, Cataract, Cervical radicular pain, neck pain and DJD - [facility], Chronic alcoholic gastritis - pls refrain from alcohol, Corneal ulcer, right - 08/23/18; [facility], Depression, Elev transaminase/LDH due to alcohol, Falling, Genital herpes simplex - recurrent gential; suppressive Valtrex, GERD (gastroesophageal reflux disease), GI bleed, Headache, Hyperlipidemia, Hypertension, Macrocytosis due to alcohol, Multiple rib fractures - 03/11/19 [facility], Non-cardiac chest pain - [facility] 09/21/16 NEGATIVE MP, Osteoarthritis, Osteopenia, Palliative care patient, Pleural effusion on left - 03/11/19 [facility], Right rib fracture (Resolved), Sciatica - right, [facility], Tendinitis of left rotator cuff, Tubular adenoma of colon, Urinary incontinence - 01/24/13 urethral suspension and sling at [facility] (bladder suspension 1991), and Wernicke encephalopathy. Surgical History: Bladder Surgery suspension, Colonoscopy - [facility], EGD - [facility],. Ligation of fallopian tube, and Repair bladder injury, simple. PREVIOUS FUNCTIONAL STATUS/SOCIAL/FAMILY SUPPORTS:: Leticia lives alone with her dog at her home in [place]. She has a private caregiver who assists her with medication management and housekeeping. Leticia is otherwise independent with ADLs. She states she no longer drives and takes [facility] to appointments. CURRENT FUNCTIONAL STATUS:: Leticia is lying in bed when meets with her. She is fully dressed and states she is going home despite continuing to feel nauseous. After further discussion, Leticia decides to remain at [facility] until she is medically cleared to return home by provider. ADVANCE DIRECTIVES:: DNR/COLST on file, dwayne Avery is agent. Durable POA also on file, agent is Clarence Garza and Balbina Ingram is alternate agent. Has patient been provided with information about the portal?: Yes Did the patient sign up for the portal?: Yes CODE STATUS:: DNR/DNI INSURANCE COVERAGE / FINANCIAL ISSUES:: Commercial Medicare replacement ([facility] PPO) and Financial Assist 47. CURRENT HOME/COMMUNITY SERVICES/EQUIPMENT:: Leticia has a private caregiver who assists with medication management and housekeeping. She meets with Gianna Green for weekly therapy. She also has current HH RN, PT and OT and owns a FWW. PRIMARY CARE PHYSICIAN:: Lavelle Galindo MD, [facility]. POTENTIAL DISCHARGE NEEDS:: Follow-up appointment with primary care physician. PATIENT/FAMILY EDUCATION NEEDS:: Discharge plan, limitations, follow up plan, including [facility]. ANTICIPATED BARRIERS TO DISCHARGE:: None identified at this time. TRANSPORTATION:: [facility] will transport Leticia home when ready. CM will coordinate transport. PLAN:: Leticia will discharge home when medically cleared by provider. Resumption of HH services - nursing, PT and OT. CM to coordinate transportation via [facility]. CM will continue to support Leticia with decision making regarding discharge planning.
[2019-07-12] MEDS: MAGNESIUM SULFATE 2 GM/50 ML BAG IVPB (10:46)
[2019-07-12] MEDS: Potassium Chloride 20 MEQ TABCR 40 MEQ PO (10:49)
--- NOTE | 2019-07-12 13:09 | PT.INTREAT ---
Date of service: 07/12/19 Time of Service: 13:10 PT Notes Inpatient Physical Therapy Treatment Note [facility] Date: 07/12/19 SUBJECTIVE: Leticia is agreeable to participating in PT, although indicates that she feels dizzy this morning. PRECAUTIONS: Fall OBJECTIVE: PAIN: No c/o pain BED MOBILITY/TRANSFERS Supine-sit: I with HOB flat Sit-stand: SBA Stand-sit: SBA GAIT Assistive Device: FWW Weight bearing: Full Assist: CGA-SBA Distance: 75' x2 Deviation: Seated rest x1 THEREX: Patient completed a LE strengthening program in a seated position, as per flow sheet. STAIRS: Up/down 3x4 and 2x6 using B rails and a step-to pattern with SBA ASSESSMENT: Patient tolerated session well, without complaint. She was able to tolerate a progression in gait distance with FWW support and CGA-SBA. She would benefit from continued gait and transfer training for improved mobility and progression toward increased independence. PLAN: Continue with PT's POC TREATMENT CODE/TIME: 25 minutes; [id number], [id number]
--- NOTE | 2019-07-12 13:52 | PT.INNT ---
Date of service: 07/12/19 Time of Service: 13:52 PT Notes 07/12/19 Patient refused afternoon PT, stating she was upset. Will attempt to resume PT services tomorrow morning.
[2019-07-12] MEDS: Ibuprofen 600 MG TAB PO (14:58)
[2019-07-12 15:49] VITALS: BP 128/83; PULSE 82; RESP 16; TEMP 36.5; O2SAT 96
--- NOTE | 2019-07-12 16:33 | W.PM.PROGNOT ---
Date of Service Date of service: 07/12/19 Time of Service: 16:33 Assessment and Plan Assessment and plan (1) Alcohol abuse: Status: Chronic Assessment and plan: Currently showing no signs of withdrawl. Of note, patient has not shown any signs of withdrawl during multiple prior hospitalizations, with lone tachycardia and HTN being due to repeated medication noncompliance (BB therapy, antihypertensive regimen), and tremors and headache being chronic findings. No hallucinations or diaphoresis in the past or currently. Has previously declined offers for multiple different strategies aimed at assisting her at home and as an outpatient. Has also been dropped by Home Health Services due to intoxication during visits, limiting their ability to effectively help. Has in the past expressed some interest in a sobriety women's lacrosse coach. Discussed importance of abstinence in detail with patient on multiple prior occasions. With multiple falls while intoxicated the patient has had frequent hospitalizations with injuries, and has spent time undergoing PT evaluation as well as SNF placement. Highly doubt that there will be any effective way of helping her upon return home in any way that is meaningful or has lasting effects, but will ask for continued official PT evaluation and Case Management involvement in assistance for any further tools that may be able to assist Mrs. Garza long-term. (2) Hypertension: Status: Chronic Assessment and plan: Restarted home regimen of BB, CCB, and thiazide diuretic, but with continued elevated readings. Reinitiate on low dose Spironolactone, and discontinue thiazide. Monitor blood pressure and renal function carefully. Qualifiers: Hypertension type: essential hypertension Qualified Code(s): I10 - Essential (primary) hypertension (3) Tachycardia: Status: Acute Assessment and plan: Likely due to intoxication, concurrent dehydration, and non-compliance with BB therapy. Resolved with reinitiation of medication. (4) Nodule of upper lobe of right lung: Status: Acute Assessment and plan: Needs follow-up and further evaluation as outpatient. (5) Renal mass: Status: Suspected Assessment and plan: With recommendations for contrast enhanced CT or renal protocol MRI for full evaluation - CT with contrast at time of admission with stable b/l renal cysts. (6) Chronic alcoholic gastritis: Status: Chronic Assessment and plan: With prior history of GIB. Continue PPI therapy. (7) DVT prophylaxis: Status: Acute Assessment and plan: Enoxaparin. (8) Advance directive on file: Status: Acute Assessment and plan: DNR/DNI. Subjective Subjective Interval history since last seen: 73-year-old woman with a history of chronic alcoholism and frequent falls while intoxicated, HTN and medication non-compliance, being admitted from [facility] Emergency Department on 07/11 after a fall at home while inebriated. Ms. Garza has a Past Medical History significant for EtOH abuse with frequent falls while intoxicated, HTN, GERD, prior GIB and Gastritis, as well as a history of alcoholic pancreatitis. She has been seen in the ED on multiple occasions after falls, and was hospitalized here with fractures in the past. She was hospitalized at [facility] between 03/11 and 03/21 with rib fractures and hemothorax, requiring placement of a chest tube. She was also hospitalized here between 06/30 and 07/06 with sepsis from a pulmonary source. She has despite prior elevated CIWA scores while inpatient never been noted to be acutely in significant withdrawl, specifically without noted diaphoresis, tremors, or hallucinations. Her significant hypertension and tachycardia have always been on the basis of acute alcohol intoxication, dehydration, and non-compliance with her home antihypertensives. The patient presented to the ED after medical bracelet activation, found on the ground at her home by EMS. She was noted to be intoxicated and with a small facial laceration. She also suffered an unwitnessed fall while in the ED. Work-up showed essentially unremarkable labs, and imaging was positive for a questionable fracture of the nasal bone (Indeterminate age), as well as a stable spiculated 1cm right lung nodule. She also has a lobulated mass of the presacral soft tissue that may represent a low grade malignancy, by recent MRI. She was also noted to be tachycardic and hypertensive, and administered IVFs and allowed to sleep overnight in the ED. However, as she remained with an elevated HR and blood pressure, the patient was referred for admission for further evaluation and treatment. This morning Mrs. Garza was again found sleeping but easily arousable. Continues to work with PT. No signs of withdrawl currently. No overnight events reported. Remains afebrile. Exam Narrative Exam Narrative: General: Patient appears comfortable, sleeping but easily arousable, NAD, Oriented X3 Psych: Normal mood, depressed affect Objective Objective Clinical Data: Abnormal lab results 07/12/19 07/12/19 Range/Units 06:53 06:53 WBC 3.48 L (4.4-10.8) k/cumm RBC 3.05 L (4.00-5.20) m/cumm Hgb 9.0 L (12.0-15.5) g/dL Hct 28.4 L (36.0-46.0) % MCHC 31.7 L (32.0-36.0) g/dL RDW 15.5 H (11.7-14.6) % Plt Count 407 H (130-400) x1000/uL Absolute Lymphocytes 1.17 L (1.2-3.4) k/cumm Potassium 3.3 L (3.5-5.1) mmol/L Glucose 114 H (70-100) mg/dL Magnesium 1.6 L (1.8-2.4) mg/dL Vital Signs Temperature 36.5 C 07/12/19 15:49 Temperature Source Tympanic 07/12/19 15:49 Pulse 82 07/12/19 15:49 Pulse Rhythm Irregular 07/12/19 11:56 Pulse 107 H 07/10/19 20:10 Respiratory Rate 16 07/12/19 15:49 Respiratory Effort Non-Labored 07/12/19 11:56 Respiratory Depth Normal 07/12/19 11:56 Respiratory Pattern Normal 07/12/19 11:56 Blood Pressure 128/83 07/12/19 15:49 Blood Pressure Mean 103 07/10/19 20:08 Blood Pressure Position Supine 07/10/19 18:15 Pulse Oximetry 96 07/12/19 15:49 Oxygen Delivery Method Room Air 07/12/19 15:49 Oxygen Flow Rate 0 07/12/19 15:49 Pain Level 7 07/12/19 14:58 Comment 07/11/19 15:51 Intake & Output 07/11/19 07/12/19 07/12/19 23:59 11:59 23:59 Intake Total 1509.166 / 3009.166 480 / 1010 530 / 1010 Output Total 200 / 200 Balance 1309.166 / 2809.166 480 / 1010 530 / 1010 Intake: IV 1029.166 / 2529.166 50 / 50 Oral 480 / 480 480 / 960 480 / 960 Output: Urine 200 / 200 Other: Urine Color Yellow Yellow Urine Appearance Clear Clear Urine Odor Normal Comment large incontient void patient missed the hat Stool Size Moderate Stool Characteristics Soft Voiding Methods Toilet Toilet Incontinent Laboratory Results WBC 3.48 k/cumm (4.4-10.8) L 07/12/19 06:53 RBC 3.05 m/cumm (4.00-5.20) L 07/12/19 06:53 Hgb 9.0 g/dL (12.0-15.5) L 07/12/19 06:53 Hct 28.4 % (36.0-46.0) L 07/12/19 06:53 MCV 93.1 fL (80-95) 07/12/19 06:53 MCH 29.5 pg (27.0-33.0) 07/12/19 06:53 MCHC 31.7 g/dL (32.0-36.0) L 07/12/19 06:53 RDW 15.5 % (11.7-14.6) H 07/12/19 06:53 Plt Count 407 x1000/uL (130-400) H 07/12/19 06:53 MPV 8.6 fL (8.0-11.0) 07/12/19 06:53 Immature Gran % 0.3 07/12/19 06:53 Neutrophils % 54.9 07/12/19 06:53 Lymphocytes % 33.6 07/12/19 06:53 Monocytes % 8.6 07/12/19 06:53 Eosinophils % 2.0 07/12/19 06:53 Basophils % 0.6 07/12/19 06:53 Absolute Neutrophils 1.91 k/cumm (1.2-6.7) 07/12/19 06:53 Absolute Lymphocytes 1.17 k/cumm (1.2-3.4) L 07/12/19 06:53 Absolute Monocytes 0.30 k/cumm (0.11-0.7) 07/12/19 06:53 Absolute Eosinophils 0.07 k/cumm (0.0-0.7) 07/12/19 06:53 Absolute Basophils 0.02 k/cumm (0.0-0.2) 07/12/19 06:53 Differential Comment Rbc morph reviewed 07/12/19 06:53 RBC Morphology See below 07/12/19 06:53 Polychromasia Present 07/12/19 06:53 Anisocytosis 1+ 07/12/19 06:53 Sodium 138 mmol/L (136-145) 07/12/19 06:53 Potassium 3.3 mmol/L (3.5-5.1) L 07/12/19 06:53 Chloride 100 mmol/L (98-107) 07/12/19 06:53 Carbon Dioxide 28.5 mmol/L (21.0-32.0) 07/12/19 06:53 Anion Gap 9.5 mmol/L (3-11) 07/12/19 06:53 BUN 10 mg/dL (7-18) 07/12/19 06:53 Creatinine 0.77 mg/dL (0.55-1.02) 07/12/19 06:53 Estimated GFR/1.73 m2 >= 60.00 (mL/min/1.73m2) 07/12/19 06:53 Glucose 114 mg/dL (70-100) H 07/12/19 06:53 Calcium 9.8 mg/dL (8.5-10.1) 07/12/19 06:53 Magnesium 1.6 mg/dL (1.8-2.4) L 07/12/19 06:53 Total Bilirubin 0.3 mg/dL (0.2-1.0) 07/10/19 20:00 AST 23 U/L (15-37) 07/10/19 20:00 ALT 31 U/L (14-59) 07/10/19 20:00 Alkaline Phosphatase 122 U/L (46-116) H 07/10/19 20:00 Creatine Kinase 43 U/L (26-192) 07/10/19 20:00 Troponin I < 0.05 ng/mL (0.00-0.06) 07/10/19 20:00 Total Protein 7.3 g/dL (6.4-8.2) 07/10/19 20:00 Albumin 3.6 g/dL (3.4-5.0) 07/10/19 20:00 Ethyl Alcohol 260.7 mg/dL (<3) 07/10/19 20:00
[2019-07-12] MEDS: Mirtazapine 15 MG TAB PO (21:27)
[2019-07-12 22:25] VITALS: BP 146/80; PULSE 91; RESP 16; TEMP 37.2; O2SAT 96
[2019-07-13] MEDS: Refresh PLUS Eye Drops 0.4ml OU ×2 (00:13→07:10)
[2019-07-13 04:30] VITALS: BP 129/70; PULSE 82; RESP 16; TEMP 36.5; O2SAT 95
[2019-07-13 06:52] LABS: Abs Immature Grans 0.03 k/cumm (0.0-0.09); Absolute Basophil Count 0.03 k/cumm (0.0-0.2); Absolute Eosinophil Count 0.16 k/cumm (0.0-0.7); Absolute Monocyte Count 0.38 k/cumm (0.11-0.7); Basophils % 0.5; Eosinophils % 2.8; HCT 29.5 % (36.0-46.0); HGB 9.1 g/dL (12.0-15.5); Immature Grans % 0.5; Lymphocytes % 26.3; Mean Corp. HGB Concentration 30.8 g/dL (32.0-36.0); Mean Corpuscular Hemoglobin 29.4 pg (27.0-33.0); Mean Corpuscular Volume 95.5 fL (80-95); Mean Platelet Volume 8.4 fL (8.0-11.0); Monocytes % 6.7; Neutrophils % 63.2; Platelet Count 421 x1000/uL (130-400); RBC 3.09 m/cumm (4.00-5.20); RBC Distribution Width 15.8 % (11.7-14.6)
[2019-07-13 06:58] LABS: BUN 16 mg/dL (7-18); CREATININE 0.99 mg/dL (0.55-1.02); Calcium 9.8 mg/dL (8.5-10.1); Chloride 104 mmol/L (98-107); Estimated GFR 54.98 (mL/min/1.73m2); Glucose 117 mg/dL (70-100); Magnesium 1.9 mg/dL (1.8-2.4); Potassium 4.6 mmol/L (3.5-5.1); Sodium 139 mmol/L (136-145)
[2019-07-13 07:05] VITALS: BP 158/95; PULSE 94; RESP 16; TEMP 37; O2SAT 100
[2019-07-13] MEDS: Pantoprazole 40 MG TABCR PO (07:10)
[2019-07-13] MEDS: Metoprolol 50 MG TAB PO (09:21)
[2019-07-13] MEDS: Gabapentin 300 MG CAP PO (09:21)
[2019-07-13] MEDS: Venlafaxine 37.5 MG CAPCR PO (09:21)
[2019-07-13] MEDS: Magnesium Chloride 64 MG TABCR 128 MG PO (09:21)
[2019-07-13] MEDS: Thiamine 100 MG TAB PO (09:22)
[2019-07-13] MEDS: Venlafaxine 150 MG CAPCR PO (09:22)
[2019-07-13] MEDS: Multivitamin TAB 1 TAB PO (09:22)
[2019-07-13] MEDS: Ibuprofen 600 MG TAB PO (09:22)
[2019-07-13] MEDS: Spironolactone 25 MG TAB PO (09:23)
[2019-07-13] MEDS: amLODIPine 10 MG TAB PO (09:23)
[2019-07-13] MEDS: Folic Acid 1 MG TAB PO (09:23)
[2019-07-13] MEDS: Enoxaparin 40 MG/0.4 ML SYR SC (09:24)
--- NOTE | 2019-07-13 09:43 | W.PM.DS.N ---
Date of service: 07/13/19 Time of Service: 09:43 DS: Diagnosis Discharge Diagnosis (1) Alcohol abuse: Status: Chronic (2) Hypertension: Status: Chronic (3) Tachycardia: Status: Acute (4) Nodule of upper lobe of right lung: Status: Acute (5) Renal mass: Status: Suspected Discharge Plan Disposition Patient Disposition: HOME W/HOME HEALTH SERVICE Condition: Stable Discharge Details Chief Complaint: Laceration Clinical Impression: Alcohol abuse, Hypertension, Falling, Tachycardia with heart rate 121-140 beats per minute, Forehead laceration Reason For Visit: ETOH INTOXICATION, BP MEDICATION NON-COMPLIANCE Admit Date/Time: 07/11/19 07:45 Admit Provider: Robert Medina Attending Provider: Robert Medina Primary Care Provider: Lavelle Galindo ED Provider: Wes D[facility] Course Hospital Course: Chief Complaint: Intoxication with Fall HPI: 73-year-old woman with a history of chronic alcoholism and frequent falls while intoxicated, HTN and medication non-compliance, admitted from [facility] Emergency Department on 07/11 after a fall at home while inebriated. Ms. Garza has a Past Medical History significant for EtOH abuse with frequent falls while intoxicated, HTN, GERD, prior GIB and Gastritis, as well as a history of alcoholic pancreatitis. She has been seen in the ED on multiple occasions after falls, and was hospitalized here with fractures in the past. She was hospitalized at [facility] between 03/11 and 03/21 with rib fractures and hemothorax, requiring placement of a chest tube. She was also hospitalized here between 06/30 and 07/06 with sepsis from a pulmonary source. She has despite prior elevated CIWA scores while inpatient never been noted to be acutely in alcohol withdrawl, specifically without noted diaphoresis, tremors, or hallucinations. Her significant hypertension and tachycardia have always been on the basis of acute alcohol intoxication, dehydration, and non-compliance with her home antihypertensives. The patient presented to the ED after medical bracelet activation, found on the ground at her home by EMS. She was noted to be intoxicated and with a small facial laceration. She also suffered an unwitnessed fall while in the ED. Work-up showed essentially unremarkable labs, and imaging was positive for a questionable fracture of the nasal bone (Indeterminate age), as well as a stable spiculated 1cm right lung nodule. She also has a lobulated mass of the presacral soft tissue that may represent a low grade malignancy, by recent MRI. She was also noted to be tachycardic and hypertensive, and administered IVFs and allowed to sleep overnight in the ED. However, as she remained with an elevated HR and blood pressure, the patient was referred for admission for further evaluation and treatment. This morning Mrs. Garza was found awake and dressed, asking to go home. Her blood pressure is ideal. No signs of withdrawl. No overnight events reported. Remains afebrile. Hospital Course: (1) Alcohol abuse: Currently showing no signs of withdrawl. Of note, patient has not shown any signs of withdrawl during multiple prior hospitalizations, with lone tachycardia and HTN being due to repeated medication noncompliance (BB therapy, antihypertensive regimen), and tremors and headache being chronic findings. No hallucinations or diaphoresis in the past or during current hospital stay. Has previously declined offers for multiple different strategies aimed at assisting her at home and as an outpatient. Has also been dropped by Home Health Services multiple times in the past due to intoxication during visits, limiting their ability to effectively help. Has in the past expressed some interest in a sobriety assistant baseball coach. Discussed importance of abstinence in detail with patient on multiple prior occasions. With multiple falls while intoxicated the patient has had frequent hospitalizations with injuries, and has spent time undergoing PT evaluation as well as SNF placement. Highly doubt that there will be any effective way of helping her upon return home in any way that is meaningful or has lasting effects, but will again request Home Health for PT and VNA. Case Management has been involvement in assistance. Patient is at high risk for re-hospitalization. (2) Hypertension: Restarted home regimen of BB, CCB, and thiazide diuretic, but with continued elevated readings. Reinitiate on low dose Spironolactone, and discontinued thiazide, with current pressures improved. Continue to monitor blood pressure and renal function carefully upon return home. (3) Tachycardia: Likely due to intoxication, concurrent dehydration, and non-compliance with BB therapy. Resolved with reinitiation of medication. (4) Nodule of upper lobe of right lung: Needs follow-up and further evaluation as outpatient. (5) Renal mass: With recommendations for contrast enhanced CT or renal protocol MRI for full evaluation - CT with contrast at time of admission with stable b/l renal cysts. (6) Chronic alcoholic gastritis: With prior history of GIB. Continue PPI therapy. (7) Pelvic Mass: Appearance of a Lobulated mass in the presacral soft tissue to the right of midline - 4cm in size. NM WBC scan with neoplasm vs. infectious/inflammatory process. No evidence of abscess by pelvic MRI on 07/06. 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 Needs follow-up and monitoring/evaluation as outpatient. (8) DVT prophylaxis: Was maintained on [place] Enoxaparin. (9) Advance directive on file: DNR/DNI. Home Meds and New Rx's Prescriptions: New spironolactone 25 mg Tablet 25 mg PO BID Qty: 60 RF: 0 Continued venlafaxine 37.5 mg capsule,extended release 24hr 37.5 mg PO DAILY Qty: 30 RF: 11 venlafaxine 150 mg capsule,extended release 24hr 150 mg PO DAILY Qty: 30 RF: 11 ipratropium-albuterol 0.5 mg-3 mg(2.5 mg base)/3 mL solution for nebulization 3 ml IH QID PRN (Reason: shortness of breath) Qty: 90 RF: 3 gabapentin 300 mg capsule 300 mg PO BID Qty: 90 RF: 5 metoprolol tartrate 50 mg tablet 50 mg PO BID Qty: 60 RF: 2 amlodipine 10 mg tablet 10 mg PO DAILY Qty: 90 RF: 3 thiamine mononitrate (vit B1) [Vitamin B-1 (mononitrate)] 100 mg tablet 100 mg PO DAILY Qty: 90 RF: 3 folic acid 1 mg Tablet 1 mg PO DAILY Qty: 14 RF: 0 multivitamin [Multiple Vitamins] Tablet 1 tab PO DAILY Qty: 0 RF: 0 ibuprofen [IBU] 600 mg Tablet 600 mg PO TID PRN PRN (Reason: prn TMJ) Qty: 30 RF: 0 Refresh Plus 0.5 % Dropperette 1 drp OU Q4H WHILE AWAKE Qty: 30 RF: 0 fluticasone propionate 50 mcg/actuation [place],Suspension 1 spray NS DAILY Qty: 15.8 RF: 0 pantoprazole 40 mg Tablet,Delayed Release (Dr/Ec) 40 mg PO DAILY@0730 Qty: 0 RF: 0 magnesium chloride [Mag 64] 64 mg Tablet,Delayed Release (Dr/Ec) 128 mg PO BID@1000,2200 Qty: 120 RF: 0 Discontinued hydrochlorothiazide 12.5 mg tablet 12.5 mg PO DAILY Qty: 90 RF: 3 Discharge Instructions Stand Alone Forms: Nursing Discharge Form Referrals: Lavelle Galindo [Primary Care Provider] - 07/17/19 10:20 am Activity:: No strenuous activity Equipment/Supplies:: No Equipment Needed Diet:: Low Sodium Discharge Orders Discharge Orders: Discharge Order (Routine); Ordered 07/13/19 Ordered By: Robert Medina Other Ambulatory Orders: Basic Metabolic Panel (Routine) Timeframe: 7 Days Location: None Selected Ordered By: Robert Medina DS: Summary Status at Discharge Functional status at discharge: independent ambulation Overall status at discharge: patient is back to baseline Mental Status: mental status grossly normal Speech and Movement: speech and movement normal Mood: congruent mood Affect: normal affect Exam Psych Mental Status: mental status grossly normal Speech and Movement: speech and movement normal Mood: congruent mood Affect: normal affect DS: Data Vitals/I&O Vitals and I&O: Vital Signs Temperature 37 C 07/13/19 07:05 Temperature Source Tympanic 07/13/19 07:05 Pulse 94 H 07/13/19 07:05 Pulse Rhythm Regular 07/13/19 09:31 Pulse 107 H 07/10/19 20:10 Respiratory Rate 16 07/13/19 07:05 Respiratory Effort Non-Labored 07/13/19 09:31 Respiratory Depth Normal 07/13/19 09:31 Respiratory Pattern Normal 07/13/19 09:31 Blood Pressure 158/95 H 07/13/19 07:05 Blood Pressure Mean 103 07/10/19 20:08 Blood Pressure Position Supine 07/10/19 18:15 Pulse Oximetry 100 07/13/19 07:05 Oxygen Delivery Method Room Air 07/13/19 07:05 Oxygen Flow Rate 0 07/13/19 07:05 Pain Level 8 07/13/19 09:22 Comment 07/13/19 07:05 Intake & Output 07/12/19 07/12/19 07/13/19 11:59 23:59 11:59 Intake Total 480 / 1490 1010 / 1490 Output Total 700 / 700 600 / 600 Balance 480 / 790 310 / 790 -600 / -600 Intake: IV 50 / 50 Oral 480 / 1440 960 / 1440 Output: Urine 700 / 700 600 / 600 Other: Urine Color Yellow Yellow Yellow Urine Appearance Clear Clear Clear Comment patient missed the hat Stool Size Moderate Stool Characteristics Soft Voiding Methods Toilet Toilet Data Completed and Pending Completed studies during hospitalization [Text1]: Exam(s) 07/10/[address]:CT chest/abd/pel w EXAM: CT CHEST/ABD/PEL W CLINICAL HISTORY: s/p fall, r/o acute organ injury TECHNIQUE: 98 mL of Omnipaque 350 COMPARISON: CT CHEST PE ABD AND PELVIS W from 06/30/2019 FINDINGS: There is no evidence of a hepatic or splenic laceration. The portal, superior mesenteric and splenic veins are patent. The gallbladder, bile ducts, pancreas, and adrenal glands appear stable. No acute abnormalities identified. There are stable bilateral renal cysts. No evidence of renal injury. The urinary bladder is intact. The reproductive organs are stable. The abdominal aorta is intact. Atherosclerosis. No significant abdominal or pelvic adenopathy, ascites, or pneumoperitoneum. The bowel shows no evidence of obstruction or inflammation. There is a small hiatal hernia. No acute fracture is present. There is stable grade 1 anterolisthesis of L4 on L5. 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 The thoracic aorta is intact. The heart is enlarged. No pericardial effusion is seen. No significant thoracic adenopathy is present. Left pleural effusion with subjacent infiltrate, which may represent atelectasis or pneumonia. No right pleural effusion is seen. There is no pneumothorax. There is a 1 centimeter spiculated nodule in the right lung apex posteriorly. The tracheobronchial tree is unremarkable. Old healed bilateral rib fractures are noted. There is an old compression deformity of the inferior endplate of T12. IMPRESSION: 1. No acute abdominal or pelvic injury. 2. No acute thoracic injury. 3. 1 centimeter nodule in the right lung apex. Follow-up as clinically appropriate. This may include a 3-[address] scan of the chest based on the patient's risk factors. --------- Exam(s) 07/10/[address]:CT head cerv spine & facial wo EXAM: CT HEAD CERV SPINE FACIAL WO CLINICAL HISTORY: b/l eyebrow lacerations TECHNIQUE: The studies were performed according to usual protocol. COMPARISON: CT HEAD WO from 05/01/2019 FINDINGS: CT brain: Age-appropriate cerebral atrophy and small vessel ischemic disease is present. The ventricles are intact. The basilar cisterns are patent. No acute intracranial hemorrhage, midline shift or mass effect is present. No evidence of a calvarial fracture is present. There is a left frontal scalp hematoma. There is periorbital soft tissue swelling on the right. There are minimally displaced fractures involving the nasal bones. CT scan of the cervical spine: There is no evidence of acute fracture or subluxation in the cervical spine. Moderately severe degenerative changes are present throughout the cervical spine. The odontoid is intact. The lateral masses are well aligned. The prevertebral soft tissues are unremarkable. CT scan of the face: There are minimally displaced fractures involving the nasal bones bilaterally. The orbits and retro-orbital soft tissues are unremarkable. There is periorbital soft tissue swelling on the right. There is a left frontal scalp hematoma. Nasal septum and turbinates are unremarkable. IMPRESSION: 1. No acute intracranial process. 2. Right periorbital soft tissue swelling. 3. Left frontal scalp hematoma. 4. Minimally displaced nasal bone fractures. 5. No acute fracture or subluxation of the cervical spine. Labs on day of discharge: Labs from last 24 hours 07/13/19 07/13/19 06:30 06:30 WBC 5.70 D RBC 3.09 L Hgb 9.1 L Hct 29.5 L MCV 95.5 H MCH 29.4 MCHC 30.8 L RDW 15.8 H Plt Count 421 H MPV 8.4 Immature Gran % 0.5 Neutrophils % 63.2 Lymphocytes % 26.3 Monocytes % 6.7 Eosinophils % 2.8 Basophils % 0.5 Absolute Neutrophils 3.60 Absolute Lymphocytes 1.50 Absolute Monocytes 0.38 Absolute Eosinophils 0.16 Absolute Basophils 0.03 Sodium 139 Potassium 4.6 D Chloride 104 Carbon Dioxide 28.0 Anion Gap 7.0 BUN 16 D Creatinine 0.99 Estimated GFR/1.73 m2 54.98 Glucose 117 H Calcium 9.8 Magnesium 1.9 PFSH Medical History Alcohol abuse (Chronic) Alcoholic ketosis (Resolved) Allergic rhinitis (Chronic) Anemia (Chronic 12/20/16) Back pain, chronic (Chronic) Cataract (Chronic 11/07/15) Cervical radicular pain (Chronic) neck pain and DJD [facility] Chronic alcoholic gastritis (Chronic 10/12/17) pls refrain from alcohol Corneal ulcer, right (Inactive ~08/23/18) 08/23/18; [facility]- Depression (Chronic) Elev transaminase/LDH (Chronic) due to alcohol Falling (Chronic) Genital herpes simplex (Chronic) recurrent gential; suppressive Valtrex GERD (gastroesophageal reflux disease) (Chronic) GI bleed (Chronic 12/20/16) Headache (Chronic) Hyperlipidemia (Chronic) Hypertension (Chronic) high today; she will check readings at home 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 Multiple rib fractures (Acute) 03/11/19 [facility] Non-cardiac chest pain (Chronic 09/21/16) [facility] [place] 09/21/16 NEGATIVE MP Osteoarthritis (Chronic) Osteopenia (Chronic) 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) Pleural effusion on left (Chronic) 03/11/19 [facility] Right rib fracture (Resolved) Sciatica (Chronic) right, epidural injuections [facility] Tendinitis of left rotator cuff (Inactive) Tubular adenoma of colon (Chronic 01/28/17) Urinary incontinence (Chronic) 01/24/13 urethral suspension and sling at [facility] [place] (bladder suspension 1991) Wernicke encephalopathy (Chronic) Surgical History Bladder Surgery suspension Colonoscopy - MAC (01/28/17) EGD - MAC (12/20/16) Ligation of fallopian tube Repair bladder injury, simple Family History Mother No problems noted. Father , DROWNED at age 50. No problems noted. Sister Personal history of malignant neoplasm MELANOMA Sister No problems noted. Grandfather Personal history of malignant neoplasm STOMACH Grandfather Personal history of malignant neoplasm PROSTATE Grandmother Heart disease NC Acute ill-defined cerebrovascular disease Grandmother Personal history of malignant neoplasm UTERINE Aunt , NC Heart disease NC Aunt , NC Heart disease Brother No problems noted. Social History Smoking/Tobacco Use Status: Former Tobacco Use Alcohol Intake: current Alcohol Intake frequency: 3 or more drinks per day Alcohol type: hard liquor Drug use: Never Substance use type: does not use Details: Patient states her last alcohol intake was 2 days ago 05/19/19-pt states last drink was weeks ago Do you feel safe at home: Yes Do you feel safe in your relationship?: Yes Additional Social history: my caregiver is an anxiety attack person
--- NOTE | 2019-07-13 09:59 | PDOC.HHF2F_ITS ---
Home Health Certification Home Health Certification: 1. Encounter Date and Reason I certify that LINDA CONROY was seen by Robert Medina on 07/13/19 and that I had a [id number] encounter with this patient that meets the physician face to face encounter requirements. 2. Clinical Findings Supporting Skilled Need and Homebound Status I certify that home health services are medically necessary, include either intermittent jail and/or physical/speech therapy, and that this katheryn ent is homebound in that absences from the home require considerable and taxing effort and are infrequent or of short duration, or are attributable to the need to receive medical care. [X] (a) Attached documentation from encounter provides clinical findings supporting skilled need and homebound status (including what assistance patient requires to leave the home). The encounter with the patient was in whole, or in part, for the following medical condition, which is the primary reason for home health care: ETOH INTOXICATION, BP MEDICATION NON-COMPLIANCE Long-Term: Blood pressure and clinical status follow-up post hospitalization. Physical Therapy: Continued falls with intoxication. Home PT Needs. Speech Therapy: Homebound: 3. Certification and Authentication I certify that I composed the above information based on my clinical judgement relating to this patient's medical condition and, if applicable, clinical findings communicated to me by the NPP or inpatient physician who performed the Home Health Referral. All further orders will be obtained through Lavelle Galindo (Community Based Physician - PCP)
[2019-07-13] MEDS: Magnesium Oxide 400 MG TAB PO (10:04)
--- NOTE | 2019-07-13 10:30 | CMDISCH_ITS ---
- If Service Date Differs Date of service: 07/13/19 Time of Service: 10:30 LACE Index Scoring Tool - Questions: Length of Stay (in days): 2 Acuity (Admit via E.D.?): Yes E.D. Visits: 23 - Answers: Total Score: 9 Risk of Readmission: Low Risk Care Management Discharge Reason for Hospitalization: ETOH intoxication, BP medication non-compliance. Discharge Plan: Leticia is returning home with resumption of Home Health nursing and PT. [facility] has notified [facility] of the resumption of services. [facility] has also coordinated transportation via [facility] [place]. Leticia will follow up with her primary care physician as prescribed. Leticia is agreeable to returning home at this time. Patient/Family Education Needs: Nursing will review discharge instructions with Leticia regarding activity level, medications, and follow up appointments. Leticia is able to verbalize reason for hospitalization and how to manage care at home. Services Needed at Discharge: Home Health Care Services (Resumption of nursing and PT.)
--- NOTE | 2019-07-13 15:43 | PT.INDS ---
Date of service: 07/13/19 Time of Service: 15:43 PT Notes Inpatient Physical Therapy Discharge Summary Dates: 07/13/2019 Dates of Service: 07/11/2019 through 07/13/2019 This is a clinical summary of care provided on the duration of dates listed above. No charge was made in the completion of this documentation. Referring Doctor: Robert Medina MD PT Orders: PT CONSULT: Eval/Treat for limited ability.? Precautions: Fall. Standard. Activity as tolerated. Patient Profile/Admitting Diagnosis: Patient is a 74-year-old female with past medical history significant for ETOH abuse, back pain, depression, and frequent falling who presented to the ED 07/10/2019 via EMS with chief presentation of intoxication. Patient was reportedly found on the floor upon arrival of EMS personnel at home. Patient is found to be tachycardic and hypertensive. PMHX: Medical History Alcohol abuse (Chronic) Alcoholic ketosis (Resolved) Allergic rhinitis (Chronic) Anemia (Chronic 12/20/16) Back pain, chronic (Chronic) Cataract (Chronic 11/07/15) Cervical radicular pain (Chronic) Chronic alcoholic gastritis (Chronic 10/12/17) Depression (Chronic) Elev transaminase/LDH (Chronic) Falling (Chronic) Genital herpes simplex (Chronic) GERD (gastroesophageal reflux disease) (Chronic) GI bleed (Chronic 12/20/16) Headache (Chronic) Hyperlipidemia (Chronic) Hypertension (Chronic) Macrocytosis (Chronic 09/26/14) Multiple rib fractures (Acute) Non-cardiac chest pain (Chronic 09/21/16) Osteoarthritis (Chronic) Osteopenia (Chronic) 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) Pleural effusion on left (Acute) Right rib fracture (Resolved) Sciatica (Chronic) Tubular adenoma of colon (Chronic 01/28/17) Urinary incontinence (Chronic) Wernicke encephalopathy (Chronic) Surgical History Bladder Surgery Colonoscopy - MAC (01/28/17) EGD - MAC (12/20/16) Ligation of fallopian tube Repair bladder injury, simple Social History/Home Situation: Leticia lives in a private home in [place]. She has a caregiver who comes in daily 5 days per week for 2 hours each time to assist with laundry, minor house chores, and grocery shopping. Patient is independent with MRADLs using a straight cane. She has a walker which she states she does not use often. She receives meals on wheels. She no longer drives. She was recently discharged from this hospital on 06/18/2019 at [facility] with a straight cane for all level surface ambulation. Equipment Owned/DME: FWW, SC, grab bars, emergency alert device Subjective: NT Objective: General Observation: NT Mental Status: NT Pain: NT ROM: Right Upper Extremity: Shoulder Flexion WFL. Shoulder abduction WFL. Elbow flexion WFL. Wrist flexion WFL. Functional opening and closing of hand WFL. Left Upper Extremity: Shoulder Flexion WFL. Shoulder abduction WFL. Elbow flexion WFL. Wrist flexion WFL. Functional opening and closing of hand WFL. Right Lower Extremity: Hip flexion WFL. Hip abduction WFL. Knee flexion WFL. Ankle dorsiflexion WFL. Ankle plantarflexion WFL. Left Lower Extremity: Hip flexion WFL. Hip abduction WFL. Knee flexion WFL. Ankle dorsiflexion WFL. Ankle plantarflexion WFL. Strength: Right Upper Extremity: Shoulder flexors 4/5. Shoulder abductors 4/5. Elbow flexors 4/5. Elbow extensors 4/5. Piece Work Inspector strong. Left Upper Extremity: Shoulder flexors 4/5. Shoulder abductors 4/5. Elbow flexors 4/5. Elbow extensors 4/5. Piece Work Inspector strong. Right Lower Extremity: Hip flexors 4-/5. Hip abductors 4-/5. Knee flexors 4-/5. Knee extensors 4-/5. Ankle dorsiflexors 4-/5. Ankle plantarflexors 4-/5. Left Lower Extremity:Hip flexors 4-/5. Hip abductors 4-/5. Knee flexors 4-/5. Knee extensors 4-/5. Ankle dorsiflexors 4-/5. Ankle plantarflexors 4-/5. Bed Mobility/Transfers: Rolling independent Supine to sit independent Sit to supine independent Sit to stand SBA Stand to sit SBA Bed to chair SBA Chair to bed SBA Gait: Patient exhibited reciprocal gait for 120 feet feet using a FWW with mild breathlessness after activity requiring CGA from PT. She appeared to have decreased step length. Balance: Static Sitting: Normal Dynamic Sitting: Normal Static Standing: Fair Dynamic Standing: Fair Assessment: Patient is a 74-year-old female with past medical history significant for ETOH abuse, back pain, depression, and frequent falling who presented to the ED 07/10/2019 via EMS with chief presentation of intoxication. Patient was reportedly found on the floor upon arrival of EMS personnel at home. Patient is found to be tachycardic and hypertensive and demonstrates with impairments and functional limitations listed below requiring skilled PT services at the SNF. Patient has had multiple readmissions to this hospital related to ETOH abuse and may benefit from SNF placement on discharge in order to have a better prognosis and to decrease falls. Patient was given advice about said recommendation but continues to be firm about going home. Her prognosis for thriving at home is poor. Patient continues to presentwith clinical signs and symptoms consistent with current/admitting diagnoses that have resulted to mobility limitations, gait instability, generalized weakness, and impairment of motor control as demonstrated by the following impairment level findings: 1. Decreased strength to B LE major muscle groups 2. Impaired standing balance 3. Impaired activity tolerance Impairments continue to contribute to the following functional limitations: 1. Increased dependence with transfers 2. Inability to safely ambulate without assistive device and physical assistance 3. Increase completion time for mobility ADL performance 4. Increased fall risk 5. Inability to negotiate steps alone safely Goals: Goals X1 week 1. Supine-Sit independent MET 2. Sit-Supine independent MET 3. Sit-Stand independent MET 4. Stand-Sit independent NOT MET 5. Bed-Chair independent NOT MET 6. Chair-Bed independent NOT MET 7. Independent gait on level surface with use of straight cane for at least 300 feet without report of pain nor dyspnea NOT MET 8. Independent stair negotiation while holding onto bilateral rails for at least 5 steps without report of pain nor dyspnea NOT MET 9. Independent with home exercise program NOT MET 10. Good static and dynamic standing balance/tolerance NOT MET DISCHARGE RECOMMENDATIONS: Patient is recommended to be discharged to a SNF with continued PT treatment and use of SC during ambulatory activities. TREATMENT CODE/TIME: NC Thank you very much for this referral. Tawana Cruz PT, DPT, CLT [facility]
== END 2019-07-13 10:47 | disposition home health service (06) ==
LOC: ER 07-11 08:05 → MS 07-11 08:59
PROVIDERS: Physician Assistant; Admitting Provider Internal Medicine; Emergency Provider Emergency Medicine; PCP Family Medicine; Visit Provider Internal Medicine
DX: F10.229 Alcohol dependence with intoxication, unspecified (principal); R00.0 Tachycardia, unspecified; T44.7X6A Underdosing of beta-adrenoreceptor antagonists, initial encounter; S01.81XA Laceration without foreign body of other part of head, initial encounter; S02.2XXA Fracture of nasal bones, initial encounter for closed fracture; X58.XXXA Exposure to other specified factors, initial encounter; R91.1 Solitary pulmonary nodule; K29.20 Alcoholic gastritis without bleeding; Y90.8 Blood alcohol level of 240 mg/100 ml or more; Y92.019 Unspecified place in single-family (private) house as the place of occurrence of the external cause; I10 Essential (primary) hypertension; N28.89 Other specified disorders of kidney and ureter; Z91.81 History of falling; W19.XXXA Unspecified fall, initial encounter; Y92.238 Other place in hospital as the place of occurrence of the external cause; E78.5 Hyperlipidemia, unspecified; K21.9 Gastro-esophageal reflux disease without esophagitis; E51.2 Wernicke's encephalopathy
CPT/HCPCS: 12013; 36415; 74177; 80048; 80053; 82550; 93005; 96361; 96372; 96374; 97110; 97162; 97530; 99222; 99232; 99238; 99285; J1650; 70450; 70486; 71260; 72125; 80320; 83735; 84484; 85025; 93010; 99217; 99219; 99225; G0378; J2060; J2405

== ENCOUNTER 2019-07-22 13:32 | Emergency (ER) | payer OTHER, SELFPAY ==
[2019-07-22 13:26] VITALS: BP 166/92; PULSE 95; RESP 25; TEMP 37; O2SAT 98
--- NOTE | 2019-07-22 13:39 | ED.GENADUL_ITS ---
Discharge Plan Disposition Patient Disposition: HOME Condition: Improving Discharge Details Chief Complaint: SOB Clinical Impression: Vomiting, Cough Primary Care Provider: Lavelle Galindo ED Provider: Megan Foster Home Meds and New Rx's Prescriptions: Continued venlafaxine 37.5 mg capsule,extended release 24hr 37.5 mg PO DAILY Qty: 30 RF: 11 venlafaxine 150 mg capsule,extended release 24hr 150 mg PO DAILY Qty: 30 RF: 11 ipratropium-albuterol 0.5 mg-3 mg(2.5 mg base)/3 mL solution for nebulization 3 ml IH QID PRN (Reason: shortness of breath) Qty: 90 RF: 3 magnesium oxide 400 mg magnesium capsule 400 mg PO BID Qty: 180 RF: 3 spironolactone [Aldactone] 25 mg tablet 25 mg PO DAILY Qty: 90 RF: 3 gabapentin 300 mg capsule 300 mg PO BID Qty: 90 RF: 5 metoprolol tartrate 50 mg tablet 50 mg PO BID Qty: 60 RF: 2 amlodipine 10 mg tablet 10 mg PO DAILY Qty: 90 RF: 3 thiamine mononitrate (vit B1) [Vitamin B-1 (mononitrate)] 100 mg tablet 100 mg PO DAILY Qty: 90 RF: 3 folic acid 1 mg Tablet 1 mg PO DAILY Qty: 14 RF: 0 multivitamin [Multiple Vitamins] Tablet 1 tab PO DAILY Qty: 0 RF: 0 Refresh Plus 0.5 % Dropperette 1 drp OU Q4H WHILE AWAKE Qty: 30 RF: 0 fluticasone propionate 50 mcg/actuation [place],Suspension 1 spray NS DAILY Qty: 15.8 RF: 0 pantoprazole 40 mg Tablet,Delayed Release (Dr/Ec) 40 mg PO DAILY@0730 Qty: 0 RF: 0 Discharge Instructions Instructions: Acute Nausea and Vomiting (ED), Acute Cough (ED) Additional Instructions: Use your albuterol inhaler as needed and directed for cough and shortness of breath. Take the Zofran as needed directed for nausea and vomiting. Drink plenty of fluids and get plenty of rest. Follow-up with your primary care doctor within the next week for reevaluation. Return to the emergency department if you develop any worsening or new concerning symptoms. Discharge Data Discharge Date/Time-TO BE ENTERED AT DEPARTURE: 07/22/19 17:51 Discharge Physician: Megan Foster Medical Decision Making 1340 -- 74-year-old female well-known to the emergency department and frequent hospital admission with a history of alcohol abuse presents with cough with clear sputum, vomiting, and shortness of breath today. Patient is coughing throughout exam. Lungs clear. Abdomen tender in epigastrium and mild to moderately distended. She appears nontoxic and at baseline. Differential diagnosis includes pneumonia, bronchitis, ACS, acute abdominal abnormality, dehydration, electrolyte abnormality. Will place an IV, bolus IV fluids, screening labs, CT chest abdomen pelvis and will give a DuoNeb and reassess. 1600 -- Labs and imaging reviewed. Normal white blood cell count, hemoglobin stable, troponin negative. Alcohol 13. CT chest abdomen pelvis negative for acute findings. 164 --patient was able to eat a tray of food and feels much better. She states her shortness of breath and cough are much improved and she denies any dizziness. Patient was able to ambulate to the bathroom without any difficulty. We will send home with an albuterol inhaler to use as needed as well as Zofran. She is advised to follow-up with the primary care doctor for evaluation and to return here anytime if worse. Medical Records Medical records reviewed: Yes I reviewed the patient's medical records. Imaging Data Radiologic Study: Radiologist's impression: CT Chest With Contrast Exam date and time: 07/22/2019 3:15 PM Age: 74 years old Clinical history: Abdominal pain; Generalized; Patient HX: Sob/vomiting, abd pain TECHNIQUE: Imaging protocol: Computed tomography of the chest with intravenous contrast. Radiation optimization: All CT scans at this facility use at least one of these dose optimization techniques: automated exposure control; mA and/or kV adjustment per patient size (includes targeted exams where dose is matched to clinical indication); or iterative reconstruction. Contrast material: OMNI 350; Contrast volume: 100 ml; Contrast route: IV; COMPARISON: CT CHEST/ABD/PEL W 07/10/2019 8:54 PM FINDINGS: Persistent very small left pleural effusion. Continued mild left basilar atelectasis. Mild diffuse interstitial lung scarring unchanged. Irregularity to the left humeral head suggesting prior dislocation with secondary degenerative arthritis. Multiple old bilateral rib fractures. Mediastinum appears unremarkable. IMPRESSION: Little interval change from the prior examination with incidental findings as described but no other specific etiology identified for the patient's symptoms. CT Abdomen And Pelvis With Contrast Exam date and time: 07/22/2019 3:15 PM Age: 74 years old Clinical history: Abdominal pain; Generalized; Patient HX: Sob/vomiting, abd pain TECHNIQUE: Imaging protocol: Computed tomography of the abdomen and pelvis with intravenous contrast. Radiation optimization: All CT scans at this facility use at least one of these dose optimization techniques: automated exposure control; mA and/or kV adjustment per patient size (includes targeted exams where dose is matched to clinical indication); or iterative reconstruction. Contrast material: OMNI 350; Contrast volume: 100 ml; Contrast route: IV; COMPARISON: CT CHEST/ABD/PEL W 07/10/2019 8:54 PM FINDINGS: Bilateral renal cysts. Appendix is normal. No focal inflammatory process. 2.6 x 3.9 x 3.5 cm soft tissue mass in the right mid posterior pelvis unchanged from the prior examination. The exact etiology of this is uncertain. Continued followup is recommended. Please see the final report for further details as to the local protocol for followup. No bowel obstruction. No obstructive uropathy. IMPRESSION: 1. 2.6 x 3.9 x 3.5 cm soft tissue mass in the right mid posterior pelvis unchanged from the prior examination. The exact etiology of this is uncertain. Continued followup is recommended. 2. No other specific etiology identified for the patient's symptoms. Lab Data Lab results reviewed: Yes I reviewed the patient's lab results. Labs: Laboratory Tests Range/Units 07/22/19 07/22/19 07/22/19 14:07 14:07 14:07 WBC (4.4-10.8) k/cumm 6.26 RBC (4.00-5.20) m/cumm 3.20 L Hgb (12.0-15.5) g/dL 9.3 L Hct (36.0-46.0) % 29.7 L MCV (80-95) fL 92.8 MCH (27.0-33.0) pg 29.1 MCHC (32.0-36.0) g/dL 31.3 L RDW (11.7-14.6) % 16.2 H Plt Count (130-400) x1000/uL 343 MPV (8.0-11.0) fL 8.0 Immature Gran % 0.2 Neutrophils % 80.9 Lymphocytes % 11.7 Monocytes % 6.4 Eosinophils % 0.5 Basophils % 0.3 Absolute Neutrophils (1.2-6.7) k/cumm 5.07 Absolute Lymphocytes (1.2-3.4) k/cumm 0.73 L Absolute Monocytes (0.11-0.7) k/cumm 0.40 Absolute Eosinophils (0.0-0.7) k/cumm 0.03 Absolute Basophils (0.0-0.2) k/cumm 0.02 Differential Comment Rbc morph reviewed RBC Morphology See below Polychromasia Present Hypochromasia 1+ Basophilic Stippling Present Anisocytosis 1+ Sodium (136-145) mmol/L 142 Potassium (3.5-5.1) mmol/L 4.2 Chloride (98-107) mmol/L 102 Carbon Dioxide (21.0-32.0) mmol/L 23.1 Anion Gap (3-11) mmol/L 16.9 H BUN (7-18) mg/dL 13 Creatinine (0.55-1.02) mg/dL 0.90 Estimated GFR/1.73 m2 (mL/min/1.73m2) >= 60.00 Glucose (74-106) mg/dL 142 H Calcium (8.5-10.1) mg/dL 9.9 Magnesium (1.8-2.4) mg/dL 1.6 L Total Bilirubin (0.2-1.0) mg/dL 0.5 AST (15-37) U/L 17 ALT (14-59) U/L 20 Alkaline Phosphatase (46-116) U/L 144 H Troponin I (<0.06) ng/Ml < 0.05 NT-Pro-B Natriuret Pep (<300) pg/mL 81 Total Protein (6.4-8.2) g/dL 7.3 Albumin (3.4-5.0) g/dL 3.7 Ethyl Alcohol (<3) mg/dL 13.6 ECG Data Attestation: I personally reviewed and interpreted this ECG (s) as follows: Interpretation: rate of 101, sinus, T wave inversion in lead III which is been seen in previous EKG. No acute ST elevation or depression. TN 182. QTc 477. QRS 94 HPI General Mode of arrival: ambulatory . Date/Time Provider Initiated Documentation: 07/22/19 13:39 . Limitations to Documentation: no limitations . Information obtained by: patient . HPI Narrative: Patient is a 74-year-old female well-known to the emergency department with frequent visits and history of alcohol abuse, depression, hypertension, hyperlipidemia presents for cough, vomiting and shortness of breath today. Patient states she has vomited a few times which is mainly been clear. She states her cough is productive of clear sputum. She denies any known fever or abdominal pain. She states she has not had any alcohol for the past 2 days. Related Data Home Medications Medication Instructions Recorded Confirmed folic acid 1 mg PO DAILY #14 tab 08/11/18 07/17/19 pantoprazole 40 mg PO DAILY@0730 #0 tab 04/17/19 07/17/19 gabapentin 300 mg capsule 300 mg PO BID #90 cap 04/27/19 07/17/19 metoprolol tartrate 50 mg tablet 50 mg PO BID #60 tab 04/27/19 07/17/19 multivitamin [Multiple Vitamins] 1 tab PO DAILY #0 tab 05/03/19 07/17/19 Refresh Plus 1 drp OU Q4H WHILE AWAKE #30 each 06/20/19 07/17/19 fluticasone propionate 1 spray NS DAILY #15.8 ml 06/20/19 07/17/19 ipratropium-albuterol 0.5 mg-3 3 ml IH QID PRN #90 ml 06/27/19 07/17/19 mg(2.5 mg base)/3 mL nebulization soln venlafaxine 150 mg 150 mg PO DAILY #30 cap 06/27/19 07/17/19 capsule,extended release 24 hr venlafaxine 37.5 mg 37.5 mg PO DAILY #30 cap 06/27/19 07/17/19 capsule,extended release 24 hr amlodipine 10 mg tablet 10 mg PO DAILY #90 tab 06/28/19 07/17/19 thiamine mononitrate (vit B1) 100 100 mg PO DAILY #90 tab 06/28/19 07/17/19 mg tablet magnesium oxide 400 mg PO BID #180 cap 07/17/19 07/17/19 spironolactone 25 mg tablet 25 mg PO DAILY #90 tab 07/17/19 07/17/19 Previous Rx's Medication Instructions Recorded folic acid 1 mg PO DAILY #14 tab 08/11/18 pantoprazole 40 mg PO DAILY@0730 #0 tab 04/17/19 gabapentin 300 mg capsule 300 mg PO BID #90 cap 04/27/19 metoprolol tartrate 50 mg tablet 50 mg PO BID #60 tab 04/27/19 multivitamin [Multiple Vitamins] 1 tab PO DAILY #0 tab 05/03/19 Refresh Plus 1 drp OU Q4H WHILE AWAKE #30 each 06/20/19 fluticasone propionate 1 spray NS DAILY #15.8 ml 06/20/19 ipratropium-albuterol 0.5 mg-3 3 ml IH QID PRN #90 ml 06/27/19 mg(2.5 mg base)/3 mL nebulization soln venlafaxine 150 mg 150 mg PO DAILY #30 cap 06/27/19 capsule,extended release 24 hr venlafaxine 37.5 mg 37.5 mg PO DAILY #30 cap 06/27/19 capsule,extended release 24 hr amlodipine 10 mg tablet 10 mg PO DAILY #90 tab 06/28/19 thiamine mononitrate (vit B1) 100 100 mg PO DAILY #90 tab 06/28/19 mg tablet magnesium oxide 400 mg PO BID #180 cap 07/17/19 spironolactone 25 mg tablet 25 mg PO DAILY #90 tab 07/17/19 Allergies Allergy/AdvReac Type Severity Reaction Status Date / Time Penicillins Allergy Mild Rash Verified 07/17/19 10:22 ramipril Allergy Unknown ITCHING Verified 07/17/19 10:22 meperidine [From Demerol] AdvReac Severe Nausea Verified 07/17/19 10:22 bupropion AdvReac Mild GI upset Verified 07/17/19 10:22 AMBER Inhibitors AdvReac Unknown COUGH Verified 07/17/19 10:22 alendronate sodium AdvReac Unknown GI Distress Verified 07/17/19 10:22 clarithromycin AdvReac Unknown intolerant Verified 07/17/19 10:22 paroxetine AdvReac Unknown Diarrhea Verified 07/17/19 10:22 General Stated Complaint: SOB JORDAN: 3 Review of Systems All systems reviewed & are unremarkable except as noted in HPI and below Constitutional Constitutional: Reports as per HPI, Denies chills and Denies fever(s) Eyes Eyes: Denies blurry vision ENT Ears, Nose, Mouth, and Throat: Denies dizziness, Denies sore throat and Denies throat swelling Cardiovascular Cardiovascular: Denies chest pain and Reports dyspnea Respiratory Respiratory: Reports cough and Reports dyspnea Gastrointestinal Gastrointestinal: Denies abdominal pain, Denies diarrhea and Reports vomiting Genitourinary Genitourinary: Denies hematuria and Denies dysuria Musculoskeletal Musculoskeletal: Denies back pain and Denies numbness Integumentary/Breasts Skin/Breast: Denies lesions and Denies rash Neurologic Neurologic: Denies dizziness, Denies focal weakness and Denies numbness Allergic/Immunologic Allergic/Immunologic: Denies throat swelling [facility] Medical History Alcohol abuse (Chronic) Alcoholic ketosis (Resolved) Allergic rhinitis (Chronic) Anemia (Chronic 12/20/16) Back pain, chronic (Chronic) Cataract (Chronic 11/07/15) Cervical radicular pain (Chronic) neck pain and [facility] Chronic alcoholic gastritis (Chronic 10/12/17) pls refrain from alcohol Corneal ulcer, right (Inactive ~08/23/18) 08/23/18; UV-kb Depression (Chronic) Elev transaminase/LDH (Chronic) due to alcohol Fall (Acute) Falling (Chronic) Genital herpes simplex (Chronic) recurrent gential; suppressive Valtrex GERD (gastroesophageal reflux disease) (Chronic) GI bleed (Chronic 12/20/16) Headache (Chronic) Hyperlipidemia (Chronic) Hypertension (Chronic) high today; she will check readings at home 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 Multiple rib fractures (Acute) 03/11/19 [facility] Non-cardiac chest pain (Chronic 09/21/16) [facility] 09/21/16 NEGATIVE MP Osteoarthritis (Chronic) Osteopenia (Chronic) 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) Pleural effusion on left (Chronic) 03/11/19 [facility] Right rib fracture (Resolved) Sciatica (Chronic) right, epidural injuections [facility] Tendinitis of left rotator cuff (Inactive) Tubular adenoma of colon (Chronic 01/28/17) Urinary incontinence (Chronic) 01/24/13 urethral suspension and sling at [facility] [place] (bladder suspension 1991) Wernicke encephalopathy (Chronic) Surgical History Bladder Surgery suspension Colonoscopy - MAC (01/28/17) EGD - [facility] (12/20/16) Ligation of fallopian tube Repair bladder injury, simple Family History Mother No problems noted. Father , DROWNED at age 50. No problems noted. Sister Personal history of malignant neoplasm MELANOMA Sister No problems noted. Grandfather Personal history of malignant neoplasm STOMACH Grandfather Personal history of malignant neoplasm PROSTATE Grandmother Heart disease [place] Acute ill-defined cerebrovascular disease Grandmother Personal history of malignant neoplasm UTERINE Aunt , [place] Heart disease DE Aunt , [place] Heart disease Brother No problems noted. Social History Smoking/Tobacco Use Status: Former Tobacco Use Alcohol Intake: current Alcohol Intake frequency: 3 or more drinks per day Alcohol type: hard liquor Drug use: Never Substance use type: does not use Details: Patient states her last alcohol intake was 2 days ago 05/19/19-pt states last drink was weeks ago Do you feel safe at home: Yes Do you feel safe in your relationship?: Yes Additional Social history: my caregiver is an anxiety attack person Exam Const General: cooperative, no acute distress, disheveled and ill appearing chronically HENMT Head: normal to inspection Face and sinus: normal facial exam Eyes General: appearance normal, both eyes and all related structures Pupils: PERRL EOM: EOM intact bilaterally Neck Neck: normal visual inspection and No submandibular swelling Lymphatic: no lymphadenopathy noted Chest Chest: normal inspection of the chest and no tenderness Resp Effort & Inspection: normal respiratory effort and able to speak in complete sentences Auscultation: clear to auscultation bilaterally Cardio Rate: regular rate Rhythm: regular rhythm GI Inspection: normal to inspection and distended (mild to moderate) Palpation: soft, not firm, not rigid and tender in the epigastrum Auscultation: normal bowel sounds Skin General skin exam: no rashes or lesions noted Neuro General: alert, awake and oriented x3 Cognition: normal cognition Speech: speech normal Motor: muscle tone normal throughout Sensory Exam: no sensory deficits noted Extrem General: normal to inspection, full ROM, normal capillary refill, no calf tenderness bilaterally and no edema Psych Appearance: grossly normal Mental Status: mental status grossly normal Speech and Movement: speech and movement normal Affect: normal affect Course Vital Signs Vital signs: Vital Signs Temperature 98.6 F 07/22/19 13:26 Pulse 95 H 07/22/19 13:26 Respiratory Rate 25 H 07/22/19 13:26 Pulse Oximetry 98 07/22/19 13:26 Temperature 98.6 F 07/22/19 13:26 Temperature Source Oral 07/22/19 13:26 Pulse 95 H 07/22/19 13:26 Respiratory Rate 25 H 07/22/19 13:26 Blood Pressure Position Sitting 07/22/19 13:26 Pulse Oximetry 98 07/22/19 13:26 Oxygen Delivery Method Room Air 07/22/19 13:26 Oxygen Flow Rate 0 07/22/19 13:26
[2019-07-22] MEDS: Albuterol/Ipratropium 3 ML UPD VIAL UPD (13:58)
[2019-07-22] MEDS: Ondansetron 4 MG/2 ML VIAL IVP (13:59)
[2019-07-22] MEDS: Normal Saline 1,000 ML 1000 ML IV (14:10)
[2019-07-22 14:11] VITALS: RESP 20
[2019-07-22 14:14] LABS: Abs Immature Grans 0.01 k/cumm (0.0-0.09); Absolute Basophil Count 0.02 k/cumm (0.0-0.2); Absolute Eosinophil Count 0.03 k/cumm (0.0-0.7); Absolute Lymphocyte Count 0.73 k/cumm (1.2-3.4); Absolute Neutrophil Count 5.07 k/cumm (1.2-6.7); Basophils % 0.3; Eosinophils % 0.5; HCT 29.7 % (36.0-46.0); HGB 9.3 g/dL (12.0-15.5); Immature Grans % 0.2; Lymphocytes % 11.7; Mean Corp. HGB Concentration 31.3 g/dL (32.0-36.0); Mean Corpuscular Hemoglobin 29.1 pg (27.0-33.0); Mean Corpuscular Volume 92.8 fL (80-95); Monocytes % 6.4; Neutrophils % 80.9; Platelet Count 343 x1000/uL (130-400); RBC Distribution Width 16.2 % (11.7-14.6); White Blood Cell Count 6.26 k/cumm (4.4-10.8)
[2019-07-22 14:28] LABS: Anisocytosis 1+; Basophilic Stippling Present; Diff Comment RBC Morph Reviewed; Hypochromasia 1+; Polychromasia Present
[2019-07-22 14:31] LABS: ALT 20 U/L (14-59); AST 17 U/L (15-37); Albumin 3.7 g/dL (3.4-5.0); Alkaline Phosphatase 144 U/L (46-116); Anion Gap 16.9 mmol/L (3-11); BUN 13 mg/dL (7-18); Bilirubin, Total 0.5 mg/dL (0.2-1.0); CO2 23.1 mmol/L (21.0-32.0); Calcium 9.9 mg/dL (8.5-10.1); Chloride 102 mmol/L (98-107); ETHANOL BLOOD 13.6 mg/dL (<3); Glucose 142 mg/dL (74-106); Magnesium 1.6 mg/dL (1.8-2.4); NT-proBNP 81 pg/mL (<300); Potassium 4.2 mmol/L (3.5-5.1); Sodium 142 mmol/L (136-145); Total Protein 7.3 g/dL (6.4-8.2); Troponin I < 0.05 ng/Ml (<0.06)
[2019-07-22 15:11] VITALS: BP 162/98; PULSE 97; RESP 18; TEMP 36.7; O2SAT 91
[2019-07-22] MEDS: Omnipaque 350 MG/ML 100 ML BTL IJ (15:14)
[2019-07-22] MEDS: Normal Saline Flush 10 ML SYR IVP (15:15)
--- NOTE | 2019-07-22 15:20 | DI.CT_ITS ---
EXAM: CT CHEST/ABD/PEL W CLINICAL HISTORY: sob, vomiting, abd pain TECHNIQUE: Post IV contrast. 100 cc's of Omnipaque 350 was utilized. COMPARISON: HEAD NECK FACIAL WO from 02/01/2016 HEAD NECK FACIAL WO from 02/01/2016 CHEST ABD PELVIS WITH CONTRAST from 08/27/2017 CT CHEST/ABD/PEL WO from 01/04/2019 CT CHEST PE ABD PELVIS W from 04/11/2019 CT CHEST PE ABD PELVIS W from 06/30/2019 CT CHEST/ABD/PEL W from 07/10/2019 FINDINGS: CHEST: There is stable mild cardiac enlargement. No pericardial effusion is seen. There is motion a t the aortic root. There is no gross evidence of dissection. There is a stable small left pleural e ffusion with adjacent atelectasis. There are posterior dependent changes in both lungs. There is mi ld scarring at the left lung base. There is a stable 1 centimeter, spiculated appearing lesion at the right lung apex which could represent an additional area of scarring. No adenopathy is seen. There is no evidence of pneumothorax. There are bilateral old rib fractures. Abdomen and pelvis: The liver shows mild fatty infiltration. The gallbladder, spleen, pancreas and a drenals are unremarkable. Multiple bilateral renal cysts are again noted. The appendix appears edilberto l. There is a moderate quantity of stool. No bowel dilatation or inflammatory changes are seen. Aga in noted is a presacral soft tissue mass. The uterus and bladder are unremarkable. IMPRESSION: No acute abnormality is seen in the chest, abdomen or pelvis. 1 centimeters area of presumed scarring at the right lung apex. It appears unchanged when compared wi th a neck CT 02/01/16. Presacral mass.
--- NOTE | 2019-07-22 16:02 | DI.VRAD_ITS ---
PROCEDURE INFORMATION: Exam: CT Chest With Contrast Exam date and time: 07/22/2019 3:15 PM Age: 74 years old Clinical history: Abdominal pain; Generalized; Patient HX: Sob/vomiting, abd pain TECHNIQUE: Imaging protocol: Computed tomography of the chest with intravenous contrast. Radiation optimization: All CT scans at this facility use at least one of these dose optimization techniques: automated exposure control; mA and/or kV adjustment per patient size (includes targeted exams where dose is matched to clinical indication); or iterative reconstruction. Contrast material: OMNI 350; Contrast volume: 100 ml; Contrast route: IV; COMPARISON: CT CHEST/ABD/PEL W 07/10/2019 8:54 PM FINDINGS: Persistent very small left pleural effusion. Continued mild left basilar atelectasis. Mild diffuse interstitial lung scarring unchanged. Irregularity to the left humeral head suggesting prior dislocation with secondary degenerative arthritis. Multiple old bilateral rib fractures. Mediastinum appears unremarkable. IMPRESSION: Little interval change from the prior examination with incidental findings as described but no other specific etiology identified for the patient's symptoms. PROCEDURE INFORMATION: Exam: CT Abdomen And Pelvis With Contrast Exam date and time: 07/22/2019 3:15 PM Age: 74 years old Clinical history: Abdominal pain; Generalized; Patient HX: Sob/vomiting, abd pain TECHNIQUE: Imaging protocol: Computed tomography of the abdomen and pelvis with intravenous contrast. Radiation optimization: All CT scans at this facility use at least one of these dose optimization techniques: automated exposure control; mA and/or kV adjustment per patient size (includes targeted exams where dose is matched to clinical indication); or iterative reconstruction. Contrast material: OMNI 350; Contrast volume: 100 ml; Contrast route: IV; COMPARISON: CT CHEST/ABD/PEL W 07/10/2019 8:54 PM FINDINGS: Bilateral renal cysts. Appendix is normal. No focal inflammatory process. 2.6 x 3.9 x 3.5 cm soft tissue mass in the right mid posterior pelvis unchanged from the prior examination. The exact etiology of this is uncertain. Continued followup is recommended. Please see the final report for further details as to the local protocol for followup. No bowel obstruction. No obstructive uropathy. IMPRESSION: 1. 2.6 x 3.9 x 3.5 cm soft tissue mass in the right mid posterior pelvis unchanged from the prior examination. The exact etiology of this is uncertain. Continued followup is recommended. 2. No other specific etiology identified for the patient's symptoms. Dictated and Authenticated by: Mendez Laird MD. Ordering:KATE Guzman MD
[2019-07-22] MEDS: Ondansetron O.D.T. 4 MG TABEF, 3 TABS/BTL PO (17:18)
[2019-07-22] MEDS: Albuterol HFA 8 GM 60 PUFF INH IH (17:19)
[2019-07-22 17:30] VITALS: BP 168/97; PULSE 100; RESP 20; TEMP 36.9; O2SAT 95
== END 2019-07-22 17:51 | disposition home or self-care (01) ==
PROVIDERS: Emergency Provider Physician Assistant; PCP Family Medicine
DX: R05 Cough (principal); R11.2 Nausea with vomiting, unspecified; I10 Essential (primary) hypertension; F10.10 Alcohol abuse, uncomplicated; Y90.0 Blood alcohol level of less than 20 mg/100 ml; Z87.891 Personal history of nicotine dependence
CPT/HCPCS: 36415; 74177; 80053; 93005; 94640; 96361; 96374; 99285; 71260; 80320; 83735; 83880; 84484; 85025; 93010; J2405; J3490; J7620

== ENCOUNTER 2019-07-25 10:36 | Outpatient (CLI) | payer OTHER, SELFPAY ==
--- NOTE | 2019-07-25 10:55 | DI.RAD_ITS ---
EXAM: XR CLAVICLE RT LIMITED 1V CLINICAL HISTORY: f/u COMPARISON: XR CLAVICLE RT LIMITED 1V from 06/27/2019 FINDINGS: Single view of the clavicle was obtained and shows healing fracture of the distal clavicle with incre ased callus at the fracture site and no gross interval change in alignment in comparison with previou s examination of June 27
--- NOTE | 2019-07-25 10:58 | DI.RAD_ITS ---
EXAM: XR ELBOW LT COMPLETE CLINICAL HISTORY: pain COMPARISON: XR elbow LT complete from 01/17/2019 FINDINGS: Three views of the elbow were obtained. There is slight prominence of the anterior humeral fat pad r aising the possibility of a small joint effusion. Mild degenerative changes are noted involving the joints of the elbow. IMPRESSION: No evidence of acute fracture or dislocation.
== END 2019-07-25 10:56 ==
PROVIDERS: PCP Family Medicine; Referring Provider Family Medicine; Visit Provider Orthopaedic Surgery
DX: M25.522 Pain in left elbow (principal); M19.022 Primary osteoarthritis, left elbow; S53.442A Ulnar collateral ligament sprain of left elbow, initial encounter; W19.XXXA Unspecified fall, initial encounter; Z87.81 Personal history of (healed) traumatic fracture
CPT/HCPCS: 99214; 73000; 73080

== ENCOUNTER 2019-07-26 19:57 | Emergency (ER) | payer OTHER, SELFPAY ==
[2019-07-26 20:01] VITALS: BP 159/84; PULSE 135; RESP 22; TEMP 36.2; O2SAT 98
--- NOTE | 2019-07-26 20:01 | ED.GENADUL_ITS ---
Discharge Plan Disposition Patient Disposition: HOME Condition: Stable Discharge Details Chief Complaint: Nausea/Vomit/Diar Clinical Impression: Alcohol abuse, Hypokalemia, Hypomagnesemia, UTI (urinary tract infection) Primary Care Provider: Lavelle Galindo ED Provider: Wes Dc Saline Meds and New Rx's Prescriptions: New nitrofurantoin macrocrystal 100 mg capsule 100 mg PO BID Qty: 10 RF: 0 Continued venlafaxine 37.5 mg capsule,extended release 24hr 37.5 mg PO DAILY Qty: 30 RF: 11 venlafaxine 150 mg capsule,extended release 24hr 150 mg PO DAILY Qty: 30 RF: 11 ipratropium-albuterol 0.5 mg-3 mg(2.5 mg base)/3 mL solution for nebulization 3 ml IH QID PRN (Reason: shortness of breath) Qty: 90 RF: 3 magnesium oxide 400 mg magnesium capsule 400 mg PO BID Qty: 180 RF: 3 spironolactone [Aldactone] 25 mg tablet 25 mg PO DAILY Qty: 90 RF: 3 gabapentin 300 mg capsule 300 mg PO BID Qty: 90 RF: 5 metoprolol tartrate 50 mg tablet 50 mg PO BID Qty: 60 RF: 2 amlodipine 10 mg tablet 10 mg PO DAILY Qty: 90 RF: 3 thiamine mononitrate (vit B1) [Vitamin B-1 (mononitrate)] 100 mg tablet 100 mg PO DAILY Qty: 90 RF: 3 folic acid 1 mg Tablet 1 mg PO DAILY Qty: 14 RF: 0 multivitamin [Multiple Vitamins] Tablet 1 tab PO DAILY Qty: 0 RF: 0 Refresh Plus 0.5 % Dropperette 1 drp OU Q4H WHILE AWAKE Qty: 30 RF: 0 fluticasone propionate 50 mcg/actuation [place],Suspension 1 spray NS DAILY Qty: 15.8 RF: 0 pantoprazole 40 mg Tablet,Delayed Release (Dr/Ec) 40 mg PO DAILY@0730 Qty: 0 RF: 0 Discharge Instructions Instructions: Urinary Tract Infection in Women (ED), Abuse of Alcohol (ED) Additional Instructions: As we discussed abstain from alcohol, take your medications as prescribed, try to eat and drink on a regular basis. Follow-up with your primary care this week. Return to ED for fever, vomiting, mental status changes, other concerns or problems. Referrals: Lavelle Galindo. [Primary Care Provider] - Medical Decision Making Patient returns with continued complaint of shortness of breath, nausea and vomiting. She was seen just 4 days ago for same. She was admitted earlier this month for fall. She is a known active alcoholic who is noncompliant with medications when she returns home after an admission. Typically shows back-up tachycardic and hypertensive not because of alcohol withdrawal but because of noncompliance with medications including metoprolol which gives her the rebound tachycardia. This has been noted on previous medical admissions where she does not truly ever show alcohol withdrawal symptoms. When her medications are restarted, her vital signs normalize and she does better. She denies any falls recently. She just had CT scan of the chest/abdomen/pelvis 4 days ago which was negative. Will place IV and recheck laboratory studies. Will give fluids, IV Zofran, IV Lopressor. Will do repeat chest x-ray. Suspect that this is just recurrent vicious cycle of patient noncompliance with medical regimen and continued alcohol consumption. 23:00 - Patient continuously coughing and gagging here. However, her lungs remained clear, she had no emesis, and oxygen saturations remained normal. Heart rate came down with IV Lopressor. She was given oral amlodipine and metoprolol that she is supposed to be taking at home. Laboratory studies show a normal white count. She has a stable anemia. She does have low potassium and low magnesium which I have ordered replaced. Her anion gap is elevated. Suspect that is related to alcohol ketoacidosis as opposed to diabetic ketoacidosis. Glucose is only a little elevated at 234. Liver function and lipase are fine. Troponin negative. Alcohol level 0. Her chest x-ray is unremarkable. After receiving IV Phenergan all of her coughing and gagging resolved. Still waiting for urinalysis and EKG. We will plan on repeat BMP to make sure gap is closing after her second liter of fluid is done. I do not plan on admitting this patient and I have discussed this with her. If she would simply abstain from alcohol, take her medications as directed, eat and drink a regular diet, she most likely would do fine. She has refused placement into a facility in the past. I have not approached her regarding this tonight. 00:15 - Patient's EKG is without any acute changes. Urine suggest cystitis so will treat with MacroBid. She has been able to ambulate in the department. Repeat BMP shows potassium now normal and anion gap has closed significantly. Discussed with patient need to abstain from alcohol, take medications as prescribed and to follow up with PCP next week. Medical Records Medical records reviewed: Yes I reviewed the patient's medical records. Lab Data Lab results reviewed: Yes I reviewed the patient's lab results. ECG Data Attestation: I personally reviewed and interpreted this ECG (s) as follows: Prior ECG tracings: not available for review Interpretation: Sinus tachycardia at 110. Normal axis and intervals. Nonspecific ST changes but nothing acute. HPI General Mode of arrival: EMS . Date/Time Provider Initiated Documentation: 07/26/19 20:10 . Limitations to Documentation: no limitations . Information obtained by: patient, EMS, RN notes reviewed and old records reviewed . HPI Narrative: Patient is brought in by ambulance for reevaluation of continued cough, shortness of breath, nausea and vomiting. Patient is well-known to me. She was just here 4 days ago with similar complaints. Work-up at that time was negative, including CT chest/abdomen/pelvis. Patient was also admitted the middle of this month after a fall at home. After discharge she returned home and began drinking alcohol again. She reports that she has not been drinking for the last couple of days. I have reviewed primary care notes since that discharge. Patient denies any falls in the last few days. She is not complaining of pain. Despite complaining of nausea and vomiting she wants ice chips immediately on arrival. No report of fever. Related Data Home Medications Medication Instructions Recorded Confirmed folic acid 1 mg PO DAILY #14 tab 08/11/18 07/25/19 pantoprazole 40 mg PO DAILY@0730 #0 tab 04/17/19 07/25/19 gabapentin 300 mg capsule 300 mg PO BID #90 cap 04/27/19 07/25/19 metoprolol tartrate 50 mg tablet 50 mg PO BID #60 tab 04/27/19 07/25/19 multivitamin [Multiple Vitamins] 1 tab PO DAILY #0 tab 05/03/19 07/25/19 Refresh Plus 1 drp OU Q4H WHILE AWAKE #30 each 06/20/19 07/25/19 fluticasone propionate 1 spray NS DAILY #15.8 ml 06/20/19 07/25/19 ipratropium-albuterol 0.5 mg-3 3 ml IH QID PRN #90 ml 06/27/19 07/25/19 mg(2.5 mg base)/3 mL nebulization soln venlafaxine 150 mg 150 mg PO DAILY #30 cap 06/27/19 07/25/19 capsule,extended release 24 hr venlafaxine 37.5 mg 37.5 mg PO DAILY #30 cap 06/27/19 07/25/19 capsule,extended release 24 hr amlodipine 10 mg tablet 10 mg PO DAILY #90 tab 06/28/19 07/25/19 thiamine mononitrate (vit B1) 100 100 mg PO DAILY #90 tab 06/28/19 07/25/19 mg tablet magnesium oxide 400 mg PO BID #180 cap 07/17/19 07/25/19 spironolactone 25 mg tablet 25 mg PO DAILY #90 tab 07/17/19 07/25/19 nitrofurantoin macrocrystal 100 mg PO BID #10 cap 07/27/19 Previous Rx's Medication Instructions Recorded folic acid 1 mg PO DAILY #14 tab 08/11/18 pantoprazole 40 mg PO DAILY@0730 #0 tab 04/17/19 gabapentin 300 mg capsule 300 mg PO BID #90 cap 04/27/19 metoprolol tartrate 50 mg tablet 50 mg PO BID #60 tab 04/27/19 multivitamin [Multiple Vitamins] 1 tab PO DAILY #0 tab 05/03/19 Refresh Plus 1 drp OU Q4H WHILE AWAKE #30 each 06/20/19 fluticasone propionate 1 spray NS DAILY #15.8 ml 06/20/19 ipratropium-albuterol 0.5 mg-3 3 ml IH QID PRN #90 ml 06/27/19 mg(2.5 mg base)/3 mL nebulization soln venlafaxine 150 mg 150 mg PO DAILY #30 cap 06/27/19 capsule,extended release 24 hr venlafaxine 37.5 mg 37.5 mg PO DAILY #30 cap 06/27/19 capsule,extended release 24 hr amlodipine 10 mg tablet 10 mg PO DAILY #90 tab 06/28/19 thiamine mononitrate (vit B1) 100 100 mg PO DAILY #90 tab 06/28/19 mg tablet magnesium oxide 400 mg PO BID #180 cap 07/17/19 spironolactone 25 mg tablet 25 mg PO DAILY #90 tab 07/17/19 nitrofurantoin macrocrystal 100 mg PO BID #10 cap 07/27/19 Allergies Allergy/AdvReac Type Severity Reaction Status Date / Time Penicillins Allergy Mild Rash Verified 07/25/19 10:22 ramipril Allergy Unknown ITCHING Verified 07/25/19 10:22 meperidine [From Demerol] AdvReac Severe Nausea Verified 07/25/19 10:22 bupropion AdvReac Mild GI upset Verified 07/25/19 10:22 AMBER Inhibitors AdvReac Unknown COUGH Verified 07/25/19 10:22 alendronate sodium AdvReac Unknown GI Distress Verified 07/25/19 10:22 clarithromycin AdvReac Unknown intolerant Verified 07/25/19 10:22 paroxetine AdvReac Unknown Diarrhea Verified 07/25/19 10:22 General JORDAN: 3 Review of Systems Narrative: 06/11 Review of Systems completed and is negative except as stated above in HPI (Systems reviewed: Const, Eyes, ENT, Resp, CV, GI, , MSK, Skin, Neuro) [facility] Medical History Alcohol abuse (Chronic) Alcoholic ketosis (Resolved) Allergic rhinitis (Chronic) Anemia (Chronic 12/20/16) Back pain, chronic (Chronic) Cataract (Chronic 11/07/15) Cervical radicular pain (Chronic) neck pain and [facility] Chronic alcoholic gastritis (Chronic 10/12/17) pls refrain from alcohol Corneal ulcer, right (Inactive ~08/23/18) 08/23/18; [facility] Depression (Chronic) Elev transaminase/LDH (Chronic) due to alcohol Fall (Acute) Falling (Chronic) Genital herpes simplex (Chronic) recurrent gential; suppressive Valtrex GERD (gastroesophageal reflux disease) (Chronic) GI bleed (Chronic 12/20/16) Headache (Chronic) Hyperlipidemia (Chronic) Hypertension (Chronic) high today; she will check readings at home 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 Multiple rib fractures (Acute) 03/11/19 [facility] Non-cardiac chest pain (Chronic 09/21/16) [facility] 09/21/16 NEGATIVE MP Osteoarthritis (Chronic) Osteopenia (Chronic) 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) Pleural effusion on left (Chronic) 03/11/19 [facility] Right rib fracture (Resolved) Sciatica (Chronic) right, epidural injuections [facility] Tendinitis of left rotator cuff (Inactive) Tubular adenoma of colon (Chronic 01/28/17) Urinary incontinence (Chronic) 01/24/13 urethral suspension and sling at [facility] (bladder suspension 1991) Wernicke encephalopathy (Chronic) Surgical History Bladder Surgery suspension Colonoscopy - [facility] (01/28/17) EGD - [facility] (12/20/16) Ligation of fallopian tube Repair bladder injury, simple Social History Smoking/Tobacco Use Status: Former Tobacco Use Alcohol Intake: current Alcohol Intake frequency: 3 or more drinks per day Alcohol type: hard liquor Drug use: Never Substance use type: does not use Details: Patient states her last alcohol intake was 2 days ago 05/19/19-pt states last drink was weeks ago Current gender identity: female Do you feel safe at home: Yes Do you feel safe in your relationship?: Yes Additional Social history: my caregiver is an anxiety attack person Exam Narrative Exam Narrative: Vitals: Afebrile. Tachycardic and hypertensive which is how she typically presents. Normal room air O2 saturation. Const: Elderly female in NAD. HEENT: NC/AT. Normal facial exam. Eyes: Right eye patch in place. Neck: Supple. Trachea midline. No tenderness. Lungs: Normal respiratory effort. Lungs are clear there is no wheezing/rales/rhonchi. Cor: RRR tachy. Good radial pulses. GI: Soft. NT/ND. No guarding or rebound. Neuro: A+O x 3. CN grossly in tact. Good strength and no focal deficit. Ext: No C/C/E. Skin: Warm and dry.
[2019-07-26 20:28] VITALS: TEMP 36.2
[2019-07-26] MEDS: Ondansetron 4 MG/2 ML VIAL IVP (20:28)
[2019-07-26 20:30] VITALS: BP 171/83; PULSE 125
[2019-07-26] MEDS: Metoprolol 5 MG/5 ML VIAL IVP (20:30)
--- NOTE | 2019-07-26 20:36 | NUR.NOTE ---
Nursing Note: Pt doing better, medicated for nausea and repositioned in bed. Metoprolol also given for increased heart rate at 130 and increased BP. Pt now more comfortable. Will continue to monitor pts heart rate and BP.
--- NOTE | 2019-07-26 20:55 | DI.RAD_ITS ---
EXAM: XR CHEST 2V PA LATERAL CLINICAL HISTORY: SOB TECHNIQUE: COMPARISON: XR PORTABLE CHEST AP from 07/02/2019 FINDINGS: Note is made multiple old healed bilateral rib fractures. Heart is mildly enlarged. Lungs are clear . No pleural effusion seen. IMPRESSION: No evidence of acute process.
--- NOTE | 2019-07-26 20:58 | DI.VRAD_ITS ---
PROCEDURE INFORMATION: Exam: XR Chest, 2 Views Exam date and time: 07/26/2019 8:51 PM Age: 74 years old Clinical history: Shortness of breath; Patient HX: SOB, vomiting TECHNIQUE: Imaging protocol: XR of the chest Views: 2 views. COMPARISON: XR PORTABLE CHEST AP 07/02/2019 6:13 AM FINDINGS: Lungs: Unremarkable. No consolidation. Pleural space: Unremarkable. No pleural effusion. No pneumothorax. Heart/Mediastinum: Unremarkable. No cardiomegaly. Bones/joints: Bilateral healed rib fractures. Deformities of acromioclavicular joints. IMPRESSION: No acute findings. Dictated and Authenticated by: Yinka Garland MD. Ordering:EVE Harvey MD
[2019-07-26 21:00] VITALS: BP 174/89; PULSE 109
[2019-07-26 21:01] LABS: ALT 30 U/L (14-59); AST 21 U/L (15-37); Albumin 4.2 g/dL (3.4-5.0); Alkaline Phosphatase 147 U/L (46-116); Anion Gap 21.4 mmol/L (3-11); BUN 16 mg/dL (7-18); Bilirubin, Total 0.7 mg/dL (0.2-1.0); CO2 21.6 mmol/L (21.0-32.0); CREATININE 1.32 mg/dL (0.55-1.02); Calcium 10.2 mg/dL (8.5-10.1); Chloride 97 mmol/L (98-107); Estimated GFR 39.45 (mL/min/1.73m2); Glucose 234 mg/dL (74-106); Magnesium 1.6 mg/dL (1.8-2.4); Potassium 3.3 mmol/L (3.5-5.1); Sodium 140 mmol/L (136-145); Total Protein 8.1 g/dL (6.4-8.2)
[2019-07-26 21:05] LABS: Troponin I < 0.05 ng/Ml (<0.06)
[2019-07-26 21:11] LABS: Abs Immature Grans 0.02 k/cumm (0.0-0.09); Absolute Basophil Count 0.01 k/cumm (0.0-0.2); Absolute Lymphocyte Count 0.31 k/cumm (1.2-3.4); Absolute Monocyte Count 0.38 k/cumm (0.11-0.7); Absolute Neutrophil Count 7.83 k/cumm (1.2-6.7); Basophils % 0.1; HCT 31.2 % (36.0-46.0); HGB 9.4 g/dL (12.0-15.5); Immature Grans % 0.2; Lymphocytes % 3.6; Mean Corp. HGB Concentration 30.1 g/dL (32.0-36.0); Mean Corpuscular Hemoglobin 28.1 pg (27.0-33.0); Mean Corpuscular Volume 93.4 fL (80-95); Mean Platelet Volume 8.9 fL (8.0-11.0); Monocytes % 4.4; Neutrophils % 91.7; Platelet Count 289 x1000/uL (130-400); RBC 3.34 m/cumm (4.00-5.20); White Blood Cell Count 8.55 k/cumm (4.4-10.8)
[2019-07-26] MEDS: amLODIPine 5 MG TAB 10 MG PO (21:21)
[2019-07-26] MEDS: Potassium Chloride 20 MEQ TABCR 40 MEQ PO (21:24)
[2019-07-26] MEDS: Metoprolol CR 50 MG TABCR PO (21:25)
[2019-07-26] MEDS: Lactated Ringers 1,000 ML 1000 ML IV (21:30)
[2019-07-26] MEDS: MAGNESIUM SULFATE 2 GM/50 ML BAG IVPB (21:32)
[2019-07-26 21:33] LABS: ETHANOL BLOOD < 3.0 mg/dL (<3); Lipase 54 U/L (73-393)
[2019-07-26 23:55] LABS: Bilirubin Negative (Negative); Blood Negative (Negative); Clarity Clear (Clear); Glucose 100 mg/dL (Negative); Ketones Negative (Negative); Leukocyte Esterase Small (Negative); Nitrite Negative (Negative); Urobilinogen 0.2 EU/dL (Up TO 0.2); pH 7.5 (5-8)
[2019-07-26 23:56] LABS: Anion Gap 14.2 mmol/L (3-11); BUN 11 mg/dL (7-18); CO2 24.8 mmol/L (21.0-32.0); CREATININE 0.97 mg/dL (0.55-1.02); Calcium 9.7 mg/dL (8.5-10.1); Chloride 100 mmol/L (98-107); Estimated GFR 56.29 (mL/min/1.73m2); Glucose 145 mg/dL (74-106); Potassium 3.7 mmol/L (3.5-5.1); Sodium 139 mmol/L (136-145)
[2019-07-27 00:04] LABS: Bacteria Many HPF (Negative); C & S Indicated? Yes; Casts Negative LPF (Negative); Crystals Negative HPF (Negative); Epithelial Cells Rare HPF (Negative); Mucus Negative (Negative); RBC 0-2 HPF (0-2)
--- NOTE | 2019-07-27 00:50 | NUR.NOTE ---
Nursing Note:Pt has been up to the bathroom with little assistance, tolerated getting up and also provided us for testing. Pt was placed in wheelchair for comfort since she has been slipping out of bed regardless of which position she was placed in. Pt has been very difficult during her stay in the ED. Pt was discharged at 0040 from ED. Pt states she does not have a ride home or anyone she can call to pick her up. States she usually uses [facility]. Pt discharged to [facility] where she can use telephone to call someone to pick her up. No further patient contact.
[2019-07-27 00:54] VITALS: BP 155/78; PULSE 108; RESP 20; TEMP 37.2; O2SAT 99
== END 2019-07-27 01:15 | disposition home or self-care (01) ==
PROVIDERS: Emergency Provider Emergency Medicine; PCP Family Medicine
DX: E87.6 Hypokalemia (principal); E83.42 Hypomagnesemia; N39.0 Urinary tract infection, site not specified; F10.20 Alcohol dependence, uncomplicated; Z91.128 Patient's intentional underdosing of medication regimen for other reason; I10 Essential (primary) hypertension
CPT/HCPCS: 36415; 80048; 80053; 83690; 87077; 93005; 96361; 96365; 96375; 99285; 71046; 80320; 81003; 81015; 83735; 84484; 85025; 87086; 87186; 93010; 99284; J2405; J3490

== ENCOUNTER 2019-07-30 14:53 | Outpatient (REF) | payer OTHER, SELFPAY ==
[2019-07-30 15:24] LABS: Anion Gap 10.2 mmol/L (3-11); BUN 13 mg/dL (7-18); CO2 25.8 mmol/L (21.0-32.0); CREATININE 0.92 mg/dL (0.55-1.02); Calcium 9.7 mg/dL (8.5-10.1); Chloride 100 mmol/L (98-107); Estimated GFR 59.84 (mL/min/1.73m2); Glucose 114 mg/dL (74-106); Potassium 4.2 mmol/L (3.5-5.1); Sodium 136 mmol/L (136-145)
== END 2019-07-30 15:13 ==
LOC: LBN 14:53
PROVIDERS: PCP Family Medicine; Visit Provider Family Medicine
DX: A40.3 Sepsis due to Streptococcus pneumoniae (principal); E51.2 Wernicke's encephalopathy; F10.19 Alcohol abuse with unspecified alcohol-induced disorder
CPT/HCPCS: 80048

== ENCOUNTER 2019-08-15 01:23 | Emergency (ER) | payer OTHER, SELFPAY ==
[2019-08-15] VITALS (36 sets, daily range): BP systolic 132–195; BP diastolic 76–161; PULSE 98–133; RESP 20; TEMP 36.2–36.7; O2SAT 94–100
--- NOTE | 2019-08-15 01:30 | ED.GENADUL_ITS ---
Discharge Plan Disposition Patient Disposition: HOME Condition: Good Discharge Details Chief Complaint: Nausea/Vomit/Diar Clinical Impression: Nausea and vomiting in adult, Hypokalemia, Hypomagnesemia Primary Care Provider: Lavelle Galindo ED Provider: Wes Dc Colbert Meds and New Rx's Prescriptions: New ondansetron 4 mg tablet,disintegrating 4 mg PO Q6H PRN (Reason: nausea and vomiting) Qty: 20 RF: 0 Continued venlafaxine 37.5 mg capsule,extended release 24hr 37.5 mg PO DAILY Qty: 30 RF: 11 venlafaxine 150 mg capsule,extended release 24hr 150 mg PO DAILY Qty: 30 RF: 11 ipratropium-albuterol 0.5 mg-3 mg(2.5 mg base)/3 mL solution for nebulization 3 ml IH QID PRN (Reason: shortness of breath) Qty: 90 RF: 3 magnesium oxide 400 mg magnesium capsule 400 mg PO BID Qty: 180 RF: 3 spironolactone [Aldactone] 25 mg tablet 25 mg PO DAILY Qty: 90 RF: 3 gabapentin 300 mg capsule 300 mg PO BID Qty: 90 RF: 5 metoprolol tartrate 50 mg tablet 50 mg PO BID Qty: 60 RF: 2 amlodipine 10 mg tablet 10 mg PO DAILY Qty: 90 RF: 3 thiamine mononitrate (vit B1) [Vitamin B-1 (mononitrate)] 100 mg tablet 100 mg PO DAILY Qty: 90 RF: 3 folic acid 1 mg Tablet 1 mg PO DAILY Qty: 14 RF: 0 multivitamin [Multiple Vitamins] Tablet 1 tab PO DAILY Qty: 0 RF: 0 Refresh Plus 0.5 % Dropperette 1 drp OU Q4H WHILE AWAKE Qty: 30 RF: 0 fluticasone propionate 50 mcg/actuation [place],Suspension 1 spray NS DAILY Qty: 15.8 RF: 0 pantoprazole 40 mg Tablet,Delayed Release (Dr/Ec) 40 mg PO DAILY@0730 Qty: 0 RF: 0 Discharge Instructions Instructions: Acute Nausea and Vomiting (ED) Additional Instructions: Clear liquid/bland diet for the next few days. Ondansetron as directed for nausea vomiting. Continue and be sure to take other medications as previously prescribed. Avoid alcohol. Please contact primary care for follow-up next week. Return to emergency department for fever, persistent vomiting, new or worsening abdominal pain, chest pain, other concerns. Referrals: Lavelle Galindo [Primary Care Provider] - Medical Decision Making Patient presents to ED with nausea, vomiting and epigastric pain for which I have seen her previously. She was last seen by me just couple weeks ago. She is always tachycardic and hypertensive on arrival. In the past this has been thought to be due to alcohol withdrawal but after many admissions for same, it seems that this is more likely to medication noncompliance. Will place IV and start fluids. We will give a dose of Lopressor and Zofran. Check laboratory studies and EKG. Patient heart rate already down to 100 after fluids and metoprolol. Laboratory studies show a stable anemia. Bilirubin high but it has been in the past and seems to fluctuate. LFTs are otherwise unremarkable. She does have an anion gap. Potassium and magnesium a little low. Lipase normal. Troponin normal. We will continue IV fluid hydration. Will replenish mag and potassium. Will dose with her Norvasc and metoprolol orally. Patient without any vomiting since being dosed with Zofran after arrival. Heart rate and blood pressure down. Repeat BMP shows that anion gap has closed. No signs of withdrawal. Patient will be discharged home with prescription for Zofran ODT to use if needed for nausea vomiting. Follow-up with primary care next week. Return to ED for fever, recurrent/persistent vomiting, abdominal pain, other concerns or problems. Medical Records Medical records reviewed: Yes I reviewed the patient's medical records. Lab Data Lab results reviewed: Yes I reviewed the patient's lab results. ECG Data Attestation: I personally reviewed and interpreted this ECG (s) as follows: Prior ECG tracings: available for review Interpretation: Sinus tachycardia at 111. Normal axis and intervals. Nonspecific ST changes but no change from previous. HPI General Mode of arrival: EMS . Date/Time Provider Initiated Documentation: 08/15/19 01:29 . Limitations to Documentation: no limitations . Information obtained by: patient, EMS, RN notes reviewed and old records reviewed . HPI Narrative: Patient presents by ambulance for evaluation of nausea, vomiting and epigastric pain. Patient reports symptoms started at 11:00 in the morning and have been ongoing now for 12+ hours. She denies hematemesis. She denies fever. She has had previous visits here for same. She denies alcohol use except for 4 to 5 days ago. She reports taking her medications. She reports vomiting up her medications today. She denies chest pain or shortness of breath. She denies diarrhea. Related Data Home Medications Medication Instructions Recorded Confirmed folic acid 1 mg PO DAILY #14 tab 08/11/18 08/15/19 pantoprazole 40 mg PO DAILY@0730 #0 tab 04/17/19 08/15/19 gabapentin 300 mg capsule 300 mg PO BID #90 cap 04/27/19 08/15/19 metoprolol tartrate 50 mg tablet 50 mg PO BID #60 tab 04/27/19 08/15/19 multivitamin [Multiple Vitamins] 1 tab PO DAILY #0 tab 05/03/19 08/15/19 Refresh Plus 1 drp OU Q4H WHILE AWAKE #30 each 06/20/19 08/15/19 fluticasone propionate 1 spray NS DAILY #15.8 ml 06/20/19 08/15/19 ipratropium-albuterol 0.5 mg-3 3 ml IH QID PRN #90 ml 06/27/19 08/15/19 mg(2.5 mg base)/3 mL nebulization soln venlafaxine 150 mg 150 mg PO DAILY #30 cap 06/27/19 08/15/19 capsule,extended release 24 hr venlafaxine 37.5 mg 37.5 mg PO DAILY #30 cap 06/27/19 08/15/19 capsule,extended release 24 hr amlodipine 10 mg tablet 10 mg PO DAILY #90 tab 06/28/19 08/15/19 thiamine mononitrate (vit B1) 100 100 mg PO DAILY #90 tab 06/28/19 08/15/19 mg tablet magnesium oxide 400 mg PO BID #180 cap 07/17/19 08/15/19 spironolactone 25 mg tablet 25 mg PO DAILY #90 tab 07/17/19 08/15/19 ondansetron 4 mg PO Q6H PRN #20 tab 08/15/19 Previous Rx's Medication Instructions Recorded folic acid 1 mg PO DAILY #14 tab 08/11/18 pantoprazole 40 mg PO DAILY@0730 #0 tab 04/17/19 gabapentin 300 mg capsule 300 mg PO BID #90 cap 04/27/19 metoprolol tartrate 50 mg tablet 50 mg PO BID #60 tab 04/27/19 multivitamin [Multiple Vitamins] 1 tab PO DAILY #0 tab 05/03/19 Refresh Plus 1 drp OU Q4H WHILE AWAKE #30 each 06/20/19 fluticasone propionate 1 spray NS DAILY #15.8 ml 06/20/19 ipratropium-albuterol 0.5 mg-3 3 ml IH QID PRN #90 ml 06/27/19 mg(2.5 mg base)/3 mL nebulization soln venlafaxine 150 mg 150 mg PO DAILY #30 cap 06/27/19 capsule,extended release 24 hr venlafaxine 37.5 mg 37.5 mg PO DAILY #30 cap 06/27/19 capsule,extended release 24 hr amlodipine 10 mg tablet 10 mg PO DAILY #90 tab 06/28/19 thiamine mononitrate (vit B1) 100 100 mg PO DAILY #90 tab 06/28/19 mg tablet magnesium oxide 400 mg PO BID #180 cap 07/17/19 spironolactone 25 mg tablet 25 mg PO DAILY #90 tab 07/17/19 ondansetron 4 mg PO Q6H PRN #20 tab 08/15/19 Allergies Allergy/AdvReac Type Severity Reaction Status Date / Time Penicillins Allergy Mild Rash Verified 07/25/19 10:22 ramipril Allergy Unknown ITCHING Verified 07/25/19 10:22 meperidine [From Demerol] AdvReac Severe Nausea Verified 07/25/19 10:22 bupropion AdvReac Mild GI upset Verified 07/25/19 10:22 AMBER Inhibitors AdvReac Unknown COUGH Verified 07/25/19 10:22 alendronate sodium AdvReac Unknown GI Distress Verified 07/25/19 10:22 clarithromycin AdvReac Unknown intolerant Verified 07/25/19 10:22 paroxetine AdvReac Unknown Diarrhea Verified 07/25/19 10:22 General JORDAN: 3 Review of Systems Narrative: As documented in HPI otherwise negative as below. Const: no fever, chills, weakness Resp: no cough, SOB, pleuritic pain CV: no CP, diaphoresis, edema, syncope GI: abdominal pain, nausea, vomiting; no diarrhea Neuro: no headache, numbness, focal weakness, confusion PFSH Social History Smoking/Tobacco Use Status: Former Tobacco Use Alcohol Intake: current Alcohol Intake frequency: 3 or more drinks per day Alcohol type: hard liquor Drug use: Never Substance use type: does not use Details: Patient states her last alcohol intake was 2 days ago 05/19/19-pt states last drink was weeks ago Current gender identity: female Do you feel safe at home: Yes Do you feel safe in your relationship?: Yes Additional Social history: my caregiver is an anxiety attack person Exam Narrative Exam Narrative: Vitals: Afebrile. Tachycardic and hypertensive. Normal room air pulse ox. Const: Elderly female dry heaving. HEENT: NC/AT. Normal facial exam. Eyes: Right eye is patched. Sclera normal. Neck: Supple. Trachea midline. Lungs: Normal respiratory effort. Lungs are clear. Cor: RRR and tachy without murmur/gallop. Good radial pulses. GI: Soft. NT/ND. No guarding or rebound. Neuro: A+O x 3. Normal speech and mental status tonight. Cranial nerves grossly intact. No focal weakness or sensory deficit. Ext: No C/C/E. Skin: Warm and dry without rash.
[2019-08-15 01:59] LABS: Abs Immature Grans 0.01 k/cumm (0.0-0.09); Absolute Basophil Count 0.01 k/cumm (0.0-0.2); Absolute Lymphocyte Count 0.21 k/cumm (1.2-3.4); Absolute Monocyte Count 0.42 k/cumm (0.11-0.7); Basophils % 0.2; HCT 34.3 % (36.0-46.0); HGB 10.9 g/dL (12.0-15.5); Immature Grans % 0.2; Lymphocytes % 3.4; Mean Corp. HGB Concentration 31.8 g/dL (32.0-36.0); Mean Corpuscular Hemoglobin 28.3 pg (27.0-33.0); Mean Corpuscular Volume 89.1 fL (80-95); Mean Platelet Volume 8.7 fL (8.0-11.0); Monocytes % 6.8; Neutrophils % 89.4; Platelet Count 204 x1000/uL (130-400); RBC 3.85 m/cumm (4.00-5.20); RBC Distribution Width 17.2 % (11.7-14.6); White Blood Cell Count 6.15 k/cumm (4.4-10.8)
[2019-08-15] MEDS: Lactated Ringers 1,000 ML 1000 ML IV (02:00)
[2019-08-15 02:16] LABS: ALT 38 U/L (14-59); AST 30 U/L (15-37); Albumin 4.7 g/dL (3.4-5.0); Alkaline Phosphatase 132 U/L (46-116); Anion Gap 17.5 mmol/L (3-11); BUN 13 mg/dL (7-18); Bilirubin, Total 2.3 mg/dL (0.2-1.0); CO2 23.5 mmol/L (21.0-32.0); CREATININE 0.93 mg/dL (0.55-1.02); Calcium 10.7 mg/dL (8.5-10.1); Chloride 96 mmol/L (98-107); ETHANOL BLOOD < 3.0 mg/dL (<3); Glucose 223 mg/dL (74-106); Lipase 60 U/L (73-393); Magnesium 1.2 mg/dL (1.8-2.4); Potassium 3.2 mmol/L (3.5-5.1); Sodium 137 mmol/L (136-145); Total Protein 8.4 g/dL (6.4-8.2); Troponin I < 0.05 ng/Ml (<0.06)
[2019-08-15] MEDS: POTASSIUM CHLORIDE 20 MEQ, POTASSIUM CHLORIDE 10 MEQ 30 MEQ PO (02:35)
[2019-08-15] MEDS: Metoprolol 50 MG TAB PO (02:45)
[2019-08-15] MEDS: Metoprolol 5 MG/5 ML VIAL IVP (02:45)
[2019-08-15] MEDS: Pantoprazole 40 MG VIAL IVP (02:46)
[2019-08-15] MEDS: Ondansetron 4 MG/2 ML VIAL IVP (02:50)
[2019-08-15] MEDS: MAGNESIUM SULFATE 2 GM/50 ML BAG IVPB (03:00)
[2019-08-15] MEDS: amLODIPine 10 MG TAB PO (03:15)
[2019-08-15] MEDS: Lactated Ringers 1,000 ML 200 ML IV (05:15)
[2019-08-15 06:28] LABS: Anion Gap 11.4 mmol/L (3-11); BUN 10 mg/dL (7-18); CO2 26.6 mmol/L (21.0-32.0); CREATININE 0.68 mg/dL (0.55-1.02); Chloride 98 mmol/L (98-107); Glucose 167 mg/dL (74-106); Potassium 3.6 mmol/L (3.5-5.1); Sodium 136 mmol/L (136-145)
[2019-08-15] MEDS: Ondansetron O.D.T. 4 MG TABEF PO (07:30)
== END 2019-08-15 08:28 | disposition home or self-care (01) ==
PROVIDERS: Emergency Provider Emergency Medicine; PCP Family Medicine
DX: R11.2 Nausea with vomiting, unspecified (principal); E87.6 Hypokalemia; E83.42 Hypomagnesemia; R10.13 Epigastric pain
CPT/HCPCS: 36415; 80048; 80053; 83690; 93005; 96361; 96365; 96366; 96375; 99284; 80320; 83735; 84484; 85025; 93010; J2405

== ENCOUNTER 2019-08-15 22:35 | Inpatient (IN) | payer OTHER, SELFPAY ==
--- NOTE | 2019-08-15 22:35 | ED.GENADUL_ITS ---
Discharge Plan Disposition Patient Disposition: [facility] INPATIENT Condition: Fair Discharge Details Chief Complaint: Nausea/Vomit/Diar Clinical Impression: Nausea and vomiting, Hypokalemia, Dehydration Primary Care Provider: Lavelle Galindo ED Provider: Wes Dc [facility] and New Rx's Prescriptions: No Action venlafaxine 37.5 mg capsule,extended release 24hr 37.5 mg PO DAILY Qty: 30 RF: 11 venlafaxine 150 mg capsule,extended release 24hr 150 mg PO DAILY Qty: 30 RF: 11 ipratropium-albuterol 0.5 mg-3 mg(2.5 mg base)/3 mL solution for nebulization 3 ml IH QID PRN (Reason: shortness of breath) Qty: 90 RF: 3 magnesium oxide 400 mg magnesium capsule 400 mg PO BID Qty: 180 RF: 3 spironolactone [Aldactone] 25 mg tablet 25 mg PO DAILY Qty: 90 RF: 3 gabapentin 300 mg capsule 300 mg PO BID Qty: 90 RF: 5 metoprolol tartrate 50 mg tablet 50 mg PO BID Qty: 60 RF: 2 amlodipine 10 mg tablet 10 mg PO DAILY Qty: 90 RF: 3 thiamine mononitrate (vit B1) [Vitamin B-1 (mononitrate)] 100 mg tablet 100 mg PO DAILY Qty: 90 RF: 3 folic acid 1 mg Tablet 1 mg PO DAILY Qty: 14 RF: 0 multivitamin [Multiple Vitamins] Tablet 1 tab PO DAILY Qty: 0 RF: 0 Refresh Plus 0.5 % Dropperette 1 drp OU Q4H WHILE AWAKE Qty: 30 RF: 0 fluticasone propionate 50 mcg/actuation [place],Suspension 1 spray NS DAILY Qty: 15.8 RF: 0 ondansetron 4 mg tablet,disintegrating 4 mg PO Q6H PRN (Reason: nausea and vomiting) Qty: 20 RF: 0 pantoprazole 40 mg Tablet,Delayed Release (Dr/Ec) 40 mg PO DAILY@0730 Qty: 0 RF: 0 Medical Decision Making Patient returns with continued nausea and vomiting. Unable to keep anything down including her medications except for a little bit of mon[place]. Did not get the Zofran prescription filled. Continues to complain of some upper abdominal discomfort but mostly nausea and vomiting. Abdominal exam remains benign. Will restart IV and use Phenergan tonight. Repeat labs. Abdominal chest x-ray ordered. Patient laboratory studies demonstrate an increase in her creatinine as well as a return of her anion gap. Potassium a little low again. Total bili remains elevaed but the rest of the LFTs are okay. Lipase negative. Troponin negative. X-ray without evidence of pneumonia or obstruction per preliminary radiology read. She has received a liter of LR. We will continue LR at 200 and give a dose of Lopressor for her heart rate as she was unable to take her medication today. Will discuss with hospitalist for consideration of admission. Medical Records Medical records reviewed: Yes I reviewed the patient's medical records. Lab Data Lab results reviewed: Yes I reviewed the patient's lab results. ECG Data Attestation: I personally reviewed and interpreted this ECG (s) as follows: Prior ECG tracings: available for review Interpretation: . Sinus tachycardia at 122. Normal axis and intervals. Nonspecific ST changes that are unchanged from previous. HPI General Mode of arrival: EMS . Date/Time Provider Initiated Documentation: 08/15/19 22:39 . Limitations to Documentation: no limitations . Information obtained by: patient, EMS, RN notes reviewed and old records reviewed . HPI Narrative: Patient returns to ED by ambulance with continued nausea and vomiting. Patient seen by me last night for same. Discharged this morning. Reports nausea and vomiting all day at home. Unable to keep anything down but a little monica paradise. Unable to get the Zofran prescription she was given filled. Continues to have some upper abdominal discomfort. Denies fever, chest pain, shortness of breath. Reports bowel movement last night while here in the ED but nothing since. Related Data Home Medications Medication Instructions Recorded Confirmed folic acid 1 mg PO DAILY #14 tab 08/11/18 08/15/19 pantoprazole 40 mg PO DAILY@0730 #0 tab 04/17/19 08/15/19 gabapentin 300 mg capsule 300 mg PO BID #90 cap 04/27/19 08/15/19 metoprolol tartrate 50 mg tablet 50 mg PO BID #60 tab 04/27/19 08/15/19 multivitamin [Multiple Vitamins] 1 tab PO DAILY #0 tab 05/03/19 08/15/19 Refresh Plus 1 drp OU Q4H WHILE AWAKE #30 each 06/20/19 08/15/19 fluticasone propionate 1 spray NS DAILY #15.8 ml 10/23/19 12/18/19 ipratropium-albuterol 0.5 mg-3 3 ml IH QID PRN #90 ml 06/27/19 08/15/19 mg(2.5 mg base)/3 mL nebulization soln venlafaxine 150 mg 150 mg PO DAILY #30 cap 06/27/19 08/15/19 capsule,extended release 24 hr venlafaxine 37.5 mg 37.5 mg PO DAILY #30 cap 06/27/19 08/15/19 capsule,extended release 24 hr amlodipine 10 mg tablet 10 mg PO DAILY #90 tab 06/28/19 08/15/19 thiamine mononitrate (vit B1) 100 100 mg PO DAILY #90 tab 06/28/19 08/15/19 mg tablet magnesium oxide 400 mg PO BID #180 cap 07/17/19 08/15/19 spironolactone 25 mg tablet 25 mg PO DAILY #90 tab 07/17/19 08/15/19 ondansetron 4 mg PO Q6H PRN #20 tab 08/15/19 08/15/19 Previous Rx's Medication Instructions Recorded folic acid 1 mg PO DAILY #14 tab 08/11/18 pantoprazole 40 mg PO DAILY@0730 #0 tab 04/17/19 gabapentin 300 mg capsule 300 mg PO BID #90 cap 04/27/19 metoprolol tartrate 50 mg tablet 50 mg PO BID #60 tab 04/27/19 multivitamin [Multiple Vitamins] 1 tab PO DAILY #0 tab 05/03/19 Refresh Plus 1 drp OU Q4H WHILE AWAKE #30 each 06/20/19 fluticasone propionate 1 spray NS DAILY #15.8 ml 06/20/19 ipratropium-albuterol 0.5 mg-3 3 ml IH QID PRN #90 ml 06/27/19 mg(2.5 mg base)/3 mL nebulization soln venlafaxine 150 mg 150 mg PO DAILY #30 cap 06/27/19 capsule,extended release 24 hr venlafaxine 37.5 mg 37.5 mg PO DAILY #30 cap 06/27/19 capsule,extended release 24 hr amlodipine 10 mg tablet 10 mg PO DAILY #90 tab 06/28/19 thiamine mononitrate (vit B1) 100 100 mg PO DAILY #90 tab 06/28/19 mg tablet magnesium oxide 400 mg PO BID #180 cap 07/17/19 spironolactone 25 mg tablet 25 mg PO DAILY #90 tab 07/17/19 ondansetron 4 mg PO Q6H PRN #20 tab 08/15/19 Allergies Allergy/AdvReac Type Severity Reaction Status Date / Time Penicillins Allergy Mild Rash Verified 08/15/19 22:42 ramipril Allergy Unknown ITCHING Verified 08/15/19 22:42 meperidine [From Demerol] AdvReac Severe Nausea Verified 08/15/19 22:42 bupropion AdvReac Mild GI upset Verified 08/15/19 22:42 AMBER Inhibitors AdvReac Unknown COUGH Verified 08/15/19 22:42 alendronate sodium AdvReac Unknown GI Distress Verified 08/15/19 22:42 clarithromycin AdvReac Unknown intolerant Verified 08/15/19 22:42 paroxetine AdvReac Unknown Diarrhea Verified 08/15/19 22:42 General JORDAN: 3 Review of Systems Narrative: 06/11 Review of Systems completed and is negative except as stated above in HPI (Systems reviewed: Const, Eyes, ENT, Resp, CV, GI, , MSK, Skin, Neuro) PFSH Social History Smoking/Tobacco Use Status: Former Tobacco Use Alcohol Intake: current Alcohol Intake frequency: 3 or more drinks per day Alcohol type: hard liquor Drug use: Never Substance use type: does not use Details: Patient states that her last alcohol was 6 days ago 08/09/19 Current gender identity: female Do you feel safe at home: Yes Do you feel safe in your relationship?: Yes Additional Social history: my caregiver is an anxiety attack person Exam Narrative Exam Narrative: Vitals: Afebrile. Hypertensive and tachycardic but normal room air pulse ox. Const: Elderly female in NAD. HEENT: NC/AT. Normal facial exam. Eyes: Normal sclera. Right eye patched. Neck: Supple. Trachea midline. Lungs: Normal respiratory effort. Lungs are clear. Cor: RRR without murmur/gallop, tachy. Good radial pulses. GI: Soft. NT/ND. No guarding or rebound. Neuro: A+O x 3. Normal speech and mentation. Cranial nerves grossly intact. No gross motor or sensory deficit. Ext: No C/C/E. Skin: Warm and dry without rash.
[2019-08-15 22:36] VITALS: BP 193/88; PULSE 120; RESP 20; TEMP 36.9; O2SAT 99
[2019-08-15 22:54] LABS: Abs Immature Grans 0.05 k/cumm (0.0-0.09); Absolute Lymphocyte Count 0.66 k/cumm (1.2-3.4); Absolute Monocyte Count 0.55 k/cumm (0.11-0.7); Absolute Neutrophil Count 4.34 k/cumm (1.2-6.7); HGB 11.9 g/dL (12.0-15.5); Immature Grans % 0.9; Lymphocytes % 11.8; Mean Corp. HGB Concentration 31.3 g/dL (32.0-36.0); Mean Corpuscular Hemoglobin 27.7 pg (27.0-33.0); Mean Corpuscular Volume 88.4 fL (80-95); Mean Platelet Volume 8.9 fL (8.0-11.0); Monocytes % 9.8; Neutrophils % 77.5; Platelet Count 227 x1000/uL (130-400); RBC Distribution Width 17.5 % (11.7-14.6)
[2019-08-15] MEDS: Lactated Ringers 1,000 ML 1000 ML IV (22:54)
[2019-08-15 23:12] VITALS: BP 193/83; PULSE 117; RESP 18; O2SAT 99
[2019-08-15 23:12] LABS: ALT 39 U/L (14-59); AST 37 U/L (15-37); Albumin 4.7 g/dL (3.4-5.0); Alkaline Phosphatase 131 U/L (46-116); Anion Gap 15.2 mmol/L (3-11); BUN 12 mg/dL (7-18); Bilirubin, Total 2.5 mg/dL (0.2-1.0); CO2 23.8 mmol/L (21.0-32.0); CREATININE 1.14 mg/dL (0.55-1.02); Calcium 10.8 mg/dL (8.5-10.1); Chloride 93 mmol/L (98-107); Estimated GFR 46.72 (mL/min/1.73m2); Glucose 159 mg/dL (74-106); Lipase 86 U/L (73-393); Magnesium 1.8 mg/dL (1.8-2.4); Potassium 3.3 mmol/L (3.5-5.1); Sodium 132 mmol/L (136-145); Total Protein 8.4 g/dL (6.4-8.2); Troponin I < 0.05 ng/Ml (<0.06)
--- NOTE | 2019-08-15 23:45 | DI.RAD_ITS ---
EXAM: XR ABD FLAT UPRIGHT PA CHEST CLINICAL HISTORY: persistent vomiting COMPARISON: XR CHEST 2V PA LATERAL from 07/26/2019 FINDINGS: PA view of the chest was obtained and shows normal cardiac size and no focal intrapulmonary abnormali ty. Multiple healed bilateral rib fractures again noted. Three views of the abdomen were obtained. Bowel gas pattern is within normal limits. No gross free intraperitoneal air. No organomegaly by plain film criteria. IMPRESSION: Negative chest. Negative abdomen.
[2019-08-15 23:46] VITALS: BP 180/91; PULSE 118; O2SAT 99
--- NOTE | 2019-08-15 23:55 | DI.VRAD_ITS ---
PROCEDURE INFORMATION: Exam: XR Complete Acute Abdomen Series Exam date and time: 08/15/2019 11:36 PM Age: 74 years old Clinical indication: Patient HX: Persistent vomiting TECHNIQUE: Imaging protocol: XR complete acute abdomen series, including 2 or more views of the abdomen and a single view chest. COMPARISON: CR XR CHEST 2V PA LATERAL 07/26/2019 8:49 PM FINDINGS: Lungs: No consolidation. Pleural space: No large pleural effusion. No pneumothorax. Heart/Mediastinum: No significant interval change. Gastrointestinal tract: No bowel dilation. Intraperitoneal space: No free air. Bones/joints: Unchanged chronic bilateral rib fractures. Unchanged post traumatic change bilateral acromioclavicular joints. Soft tissues: Normal. IMPRESSION: No demonstrated acute abnormality. Dictated and Authenticated by: Erica Horta MD. Ordering:EVE Harvey MD
[2019-08-15 23:57] VITALS: BP 180/91; PULSE 115
[2019-08-15] MEDS: Metoprolol 5 MG/5 ML VIAL IVP (23:57)
[2019-08-16] VITALS (15 sets, daily range): BP systolic 124–186; BP diastolic 86–102; PULSE 72–130; RESP 16–20; TEMP 36.5–38.5; O2SAT 95–99
[2019-08-16] MEDS: Lactated Ringers 1,000 ML 200 ML IV (00:33)
[2019-08-16] MEDS: POTASSIUM CHLORIDE/0.9% NACL 1,000 ML 150 MEQ IV (03:59)
[2019-08-16] MEDS: Acetaminophen 325 MG TAB 650 MG PO (04:00)
[2019-08-16] MEDS: Enoxaparin 30 MG/0.3 ML SYR SC (04:00)
--- NOTE | 2019-08-16 04:07 | W.PM.HP.N ---
Date of service: 08/16/19 Time of Service: 04:07 Assessment and Plan Assessment and plan (1) Dehydration: Status: Acute Assessment and plan: Continue IV fluid hydration with correction of her electrolyte abnormalities. Will give antiemetics. Start her on a clear liquid diet and advance as tolerated. (2) Prerenal azotemia: Status: Acute Assessment and plan: As above. We will repeat her BMP in the morning. (3) UTI (urinary tract infection): Status: Acute Assessment and plan: We will obtain urine and blood cultures. Begin Rocephin empirically. Adjust her antibiotic coverage depending on the results of her urine culture. Qualifiers: Urinary tract infection type: acute cystitis Hematuria presence: without hematuria Qualified Code(s): N30.00 - Acute cystitis without hematuria (4) Hypokalemia: Status: Resolved Assessment and plan: We will corrected with IV potassium supplementation or IV. If she is able to tolerate diet we will add oral supplements in the morning. (5) DVT prophylaxis: Status: Acute Assessment and plan: Low-dose Lovenox for DVT prophylaxis. (6) GERD (gastroesophageal reflux disease): Status: Chronic Assessment and plan: We will continue her oral PPI. If she is not able to tolerate advancement of her diet and we will need to switch her to an IV Protonix. Qualifiers: Esophagitis presence: with esophagitis Qualified Code(s): K21.0 - Gastro-esophageal reflux disease with esophagitis (7) Alcohol abuse: Status: Chronic Assessment and plan: Patient reportedly had her last drink about a week ago. A little skeptical given her prior history of recidivism and medication noncompliance. Nevertheless she does not appear to be in any acute alcohol withdrawal. Hopefully if her nausea and vomiting resolved and she is able to tolerate a diet she can be discharged home with close follow-up by her PCP. History of Present Illness History of Present Illness Chief Complaint: nausea, vomiting Narrative: 74 yr old female w/ PMH of alcoholism, HTN, frequent falls while intoxicated one of which was complicated by multiple rib fractures and hemothorax (03/11-03/21/2019 at [place], [place]) and sepsis from pneumonia hospitalized at [facility] 06/30-07/06/2019; prior UGI bleeds from alcoholic gastritis. Because of her medication non-compliance she frequently presents w/ nausea, vomiting, epigastric pain and hypertensive and tachycardic. During prior hospitalizations she has been treated for acute alcohol withdrawal even though she has never had hallucinations or tremors. It is felt that most of her CIWA scoring in the past has been elevated d/t her symptoms and signs related to her episodes of dehydration in combination of withdrawal from her antihypertensives including her beta j luis. She now presents to the ER for the 2nd time in 24 hrs w/ complaints of nausea and vomiting to the point she is unable to keep any liquids down. She has not taken her medicines for the past two days d/t her nausea. She states that she has not had any alcohol since last (one week ago). She has been seen in the ER by Dr. Wes Dc, who in the past has been able to hydrate her w/ iv fluids, treat her with antiemetics and over several hours she has been able to go home. She was seen yesterday by Dr. Dc w/ the same complaints and she was given iv Zofran, iv fluids and her nausea and vomiting resolved. She was discharged home w/ an Rx for Zofran and told to refrain from drinking alcohol and to follow up with her PCP. Because she returned in less than 24 hrs w/ the same complaints unable to keep down liquids and because her labs demonstrated worsening anion gap, hypokalemia, and azotemia, it was felt that she ought to be admitted overnight for iv fluids and correction of her electroytes and control of her nausea and vomiting. Her xrays of her abdomen did not show any acute abdominal process such as an ileus or SBO. Her CXR was unremarkable. However, since she has been admitted she developed a fever of 38.5 C. Her admission CBC did not show any leukocytosis. However, her UA demonstrated small leukocyte esterase, 10-20 WBC/HPF, 0-2 RBC/HPF, and many bacteria w/ rare epithelial cells and negative for nitrites. She will have urine and blood cultures done and started empirically on Rocephin for UTI. Review of Systems Constitutional Constitutional: Reports chills, Reports fatigue, Reports frequent falls, Reports poor appetite and Reports weakness Eyes Eyes: Reports photophobia ENT Ears, Nose, Mouth, and Throat: Reports system reviewed and no additional complaints, except as docu Cardiovascular Cardiovascular: Reports system reviewed and no additional complaints, except as docu and Reports dyspnea on exertion Respiratory Respiratory: Reports dyspnea on exertion Gastrointestinal Gastrointestinal: Reports abdominal pain, Denies hematochezia, Reports nausea, Reports vomiting and Denies hematemesis Genitourinary Genitourinary: Denies hematuria, Reports urinary frequency and Reports dysuria Musculoskeletal Musculoskeletal: Reports system reviewed and no additional complaints, except as docu Integumentary/Breasts Skin/Breast: Reports system reviewed and no additional complaints, except as docu Neurologic Neurologic: Reports system reviewed and no additional complaints, except as docu, Reports frequent falls and Reports weakness Psychiatric Psychiatric: Reports change in appetite Endocrine Endocrine: Reports system reviewed and no additional complaints, except as docu and Reports fatigue Hematologic/Lymphatic Hematologic/Lymphatic: Reports system reviewed and no additional complaints, except as docu Allergic/Immunologic Allergic/Immunologic: Reports system reviewed and no additional complaints, except as docu [facility] Medical History Alcohol abuse (Chronic) Alcoholic ketosis (Resolved) Allergic rhinitis (Chronic) Anemia (Chronic 12/20/16) Back pain, chronic (Chronic) Cataract (Chronic 11/07/15) Cervical radicular pain (Chronic) neck pain and [facility] Chronic alcoholic gastritis (Chronic 10/12/17) pls refrain from alcohol Corneal ulcer, right (Inactive ~08/23/18) 08/23/18; UV-kb Depression (Chronic) Elev transaminase/LDH (Chronic) due to alcohol Fall (Acute) Falling (Chronic) Genital herpes simplex (Chronic) recurrent gential; suppressive Valtrex GERD (gastroesophageal reflux disease) (Chronic) GI bleed (Chronic 12/20/16) Headache (Chronic) Hyperlipidemia (Chronic) Hypertension (Chronic) high today; she will check readings at home 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 Multiple rib fractures (Acute) 03/11/19 [facility] Non-cardiac chest pain (Chronic 09/21/16) [facility] 09/21/16 NEGATIVE MP Osteoarthritis (Chronic) Osteopenia (Chronic) 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) Pleural effusion on left (Chronic) 03/11/19 [facility] Right rib fracture (Resolved) Sciatica (Chronic) right, epidural injuections [facility] Tendinitis of left rotator cuff (Inactive) Tubular adenoma of colon (Chronic 01/28/17) Urinary incontinence (Chronic) 01/24/13 urethral suspension and sling at [facility] (bladder suspension 1991) Wernicke encephalopathy (Chronic) Surgical History Bladder Surgery suspension Colonoscopy - MAC (01/28/17) EGD - MAC (12/20/16) Ligation of fallopian tube Repair bladder injury, simple Family History Mother No problems noted. Father , DROWNED at age 50. No problems noted. Sister Personal history of malignant neoplasm MELANOMA Sister No problems noted. Grandfather Personal history of malignant neoplasm STOMACH Grandfather Personal history of malignant neoplasm PROSTATE Grandmother Heart disease NE Acute ill-defined cerebrovascular disease Grandmother Personal history of malignant neoplasm UTERINE Aunt , NE Heart disease NE Aunt , NE Heart disease Brother No problems noted. Social History Smoking/Tobacco Use Status: Former Tobacco Use Alcohol Intake: current Alcohol Intake frequency: 3 or more drinks per day Alcohol type: hard liquor Drug use: Never Substance use type: does not use Details: Patient states that her last alcohol was 6 days ago 08/09/19 Current gender identity: female Do you feel safe at home: Yes Do you feel safe in your relationship?: Yes Additional Social history: my caregiver is an anxiety attack person Meds Home Medications and Allergies Home Medications Medication Instructions Recorded Confirmed Type folic acid 1 mg PO DAILY #14 tab 08/11/18 08/15/19 Rx pantoprazole 40 mg PO DAILY@0730 #0 tab 04/17/19 08/15/19 Rx gabapentin 300 mg capsule 300 mg PO BID #90 cap 04/27/19 08/15/19 Rx metoprolol tartrate 50 mg tablet 50 mg PO BID #60 tab 04/27/19 08/15/19 Rx multivitamin [Multiple Vitamins] 1 tab PO DAILY #0 tab 05/03/19 08/15/19 Rx Refresh Plus 1 drp OU Q4H WHILE AWAKE #30 each 06/20/19 08/15/19 Rx fluticasone propionate 1 spray NS DAILY #15.8 ml 06/20/19 08/15/19 Rx ipratropium-albuterol 0.5 mg-3 3 ml IH QID PRN #90 ml 06/27/19 08/15/19 Rx mg(2.5 mg base)/3 mL nebulization soln venlafaxine 150 mg 150 mg PO DAILY #30 cap 06/27/19 08/15/19 Rx capsule,extended release 24 hr venlafaxine 37.5 mg 37.5 mg PO DAILY #30 cap 06/27/19 08/15/19 Rx capsule,extended release 24 hr amlodipine 10 mg tablet 10 mg PO DAILY #90 tab 06/28/19 08/15/19 Rx thiamine mononitrate (vit B1) 100 100 mg PO DAILY #90 tab 06/28/19 08/15/19 Rx mg tablet magnesium oxide 400 mg PO BID #180 cap 07/17/19 08/15/19 Rx spironolactone 25 mg tablet 25 mg PO DAILY #90 tab 07/17/19 08/15/19 Rx ondansetron 4 mg PO Q6H PRN #20 tab 08/15/19 08/15/19 Rx Allergies Allergy/AdvReac Type Severity Reaction Status Date / Time Penicillins Allergy Mild Rash Verified 08/15/19 22:42 ramipril Allergy Unknown ITCHING Verified 08/15/19 22:42 meperidine [From Demerol] AdvReac Severe Nausea Verified 08/15/19 22:42 bupropion AdvReac Mild GI upset Verified 08/15/19 22:42 AMBER Inhibitors AdvReac Unknown COUGH Verified 08/15/19 22:42 alendronate sodium AdvReac Unknown GI Distress Verified 08/15/19 22:42 clarithromycin AdvReac Unknown intolerant Verified 08/15/19 22:42 paroxetine AdvReac Unknown Diarrhea Verified 08/15/19 22:42 Exam Narrative Exam Narrative: Elderly female lying in bed in supine position with the lights out. Turning lights on she complains of photophobia emplaces mask of her eyes. HEENT is unremarkable. Specifically mucous membranes are moist. There is no oropharyngeal exudate or erythema. Neck is supple nontender with no JVD normal carotid pulses no bruits no cervical lymphadenopathy. Lungs are clear to auscultation. Heart is regular rate and rhythm without murmur rub or gallop Abdomen is soft and nontender with normal active bowel sounds. There is minimal suprapubic tenderness. No rebound tenderness no hepatomegaly. No bruits Lower extremities without peripheral cyanosis or edema. Neurologic exam is unremarkable. She has normal range of motion both upper and lower extremities. Sensation intact light touch. No gross deficits. Genitalia rectal exam deferred. Skin without bruising or bleeding or ulceration. Results Labs Result diagrams: 08/15/19 22:24 08/15/19 22:24 Labs: Laboratory Results - last 24 hr 08/15/19 08/15/19 22:24 22:24 WBC 5.60 RBC 4.30 Hgb 11.9 L Hct 38.0 MCV 88.4 MCH 27.7 MCHC 31.3 L RDW 17.5 H Plt Count 227 MPV 8.9 Immature Gran % 0.9 Neutrophils % 77.5 Lymphocytes % 11.8 Monocytes % 9.8 Eosinophils % 0.0 Basophils % 0.0 Absolute Neutrophils 4.34 Absolute Lymphocytes 0.66 L Absolute Monocytes 0.55 Absolute Eosinophils 0.00 Absolute Basophils 0.00 Sodium 132 L Potassium 3.3 L Chloride 93 L Carbon Dioxide 23.8 Anion Gap 15.2 H BUN 12 Creatinine 1.14 H Estimated GFR/1.73 m2 46.72 Glucose 159 H Calcium 10.8 H Magnesium 1.8 Total Bilirubin 2.5 H AST 37 ALT 39 Alkaline Phosphatase 131 H Troponin I < 0.05 Total Protein 8.4 H Albumin 4.7 Lipase 86 Last Vital Signs Temp 38.5 C H 08/16/19 04:00 Pulse 112 H 08/16/19 01:33 Resp 18 08/16/19 01:27 BP 172/86 H 08/16/19 01:27 Pulse Ox 99 08/16/19 01:27
[2019-08-16] MEDS: Refresh PLUS Eye Drops 0.4ml OU ×5 (04:27→19:34)
[2019-08-16] MEDS: Normal Saline Flush 10 ML SYR IVP ×2 (05:04→11:14)
[2019-08-16] MEDS: Ondansetron 4 MG/2 ML VIAL IVP ×2 (05:04→08:56)
[2019-08-16] MEDS: cefTRIAXone 1,000 MG in Normal Saline 50 ML 100 MG IVPB (05:27)
[2019-08-16 07:01] LABS: Abs Immature Grans 0.02 k/cumm (0.0-0.09); Absolute Basophil Count 0.01 k/cumm (0.0-0.2); Absolute Lymphocyte Count 0.67 k/cumm (1.2-3.4); Absolute Monocyte Count 0.49 k/cumm (0.11-0.7); Absolute Neutrophil Count 3.88 k/cumm (1.2-6.7); Basophils % 0.2; HCT 35.5 % (36.0-46.0); Immature Grans % 0.4; Lymphocytes % 13.2; Mean Corpuscular Hemoglobin 27.6 pg (27.0-33.0); Mean Platelet Volume 9.4 fL (8.0-11.0); Monocytes % 9.7; Neutrophils % 76.5; Platelet Count 193 x1000/uL (130-400); RBC 3.99 m/cumm (4.00-5.20); RBC Distribution Width 16.9 % (11.7-14.6); White Blood Cell Count 5.07 k/cumm (4.4-10.8)
[2019-08-16 07:42] LABS: Anion Gap 14.2 mmol/L (3-11); BUN 9 mg/dL (7-18); CO2 23.8 mmol/L (21.0-32.0); CREATININE 0.86 mg/dL (0.55-1.02); Calcium 9.6 mg/dL (8.5-10.1); Chloride 95 mmol/L (98-107); Glucose 138 mg/dL (74-106); Magnesium 1.5 mg/dL (1.8-2.4); Sodium 133 mmol/L (136-145); TSH (W/Ref FT4) 0.26 uIU/mL (0.36-3.74)
[2019-08-16 07:43] LABS: ALT 31 U/L (14-59); AST 33 U/L (15-37); Albumin 3.9 g/dL (3.4-5.0); Alkaline Phosphatase 115 U/L (46-116); Bilirubin, Direct 0.36 mg/dL (0.00-0.20); Bilirubin, Total 1.5 mg/dL (0.2-1.0); Total Protein 6.8 g/dL (6.4-8.2)
[2019-08-16 07:44] LABS: Potassium 2.8 mmol/L (3.5-5.1)
[2019-08-16 08:03] LABS: FREE T4 1.37 ng/dL (0.76-1.46)
--- NOTE | 2019-08-16 08:39 | INITIAL_ITS ---
- If Service Date Differs Date of service: 08/16/19 Time of Service: 08:39 Care Management Initial Assess REASON FOR HOSPITALIZATION:: Nausea and vomiting with dehydration. PAST MEDICAL HISTORY/PAST SURGICAL HISTORY:: Medical History: Alcohol abuse, Alcoholic ketosis, Allergic rhinitis, Anemia, Back pain, chronic, Cataract, Cervical radicular pain, neck pain and DJD - [facility], Chronic alcoholic gastritis - pls refrain from alcohol, Corneal ulcer, right - 08/23/18; UV-kb, Depression, Elev transaminase/LDH due to alcohol, Falling, Genital herpes simplex - recurrent gential; suppressive Valtrex, GERD (gastroesophageal reflux disease), GI bleed, Headache, Hyperlipidemia, Hypertension, Macrocytosis due to alcohol, Multiple rib fractures - 03/11/19 [facility], Non-cardiac chest pain - [facility] 09/21/16 NEGATIVE MP, Osteoarthritis, Osteopenia, Palliative care patient, Pleural effusion on left - 03/11/19 [facility], Right rib fracture (Resolved), Sciatica - right, epidural injuections - [facility], Tendinitis of left rotator cuff, Tubular adenoma of colon, Urinary incontinence - 01/24/13 urethral suspension and sling at [facility] (bladder suspension 1991), and Wernicke encephalopathy. Surgical History: Bladder Surgery suspension, Colonoscopy - MAC, EGD - [facility],. Ligation of fallopian tube, and Repair bladder injury, simple. PREVIOUS FUNCTIONAL STATUS/SOCIAL/FAMILY SUPPORTS:: Julia resides alone in an apartment in [place]. She has a private caregiver who helps with medication management and housekeeping. She also receives Home Health PT and OT services. Leticia no longer drives and relies on [facility] for transportation to appointments. CURRENT FUNCTIONAL STATUS:: Julia is in bed sleeping when CM comes to meet with her. She will be remaining at the hospital through the night, so CM does not wake her up. ADVANCE DIRECTIVES:: DNR/COLST on file; dwayne Avery is agent. Durable POA also on file, agent is Clarence Garza and Balbina Ingram is alternate agent. Has patient been provided with information about the portal?: Yes Did the patient sign up for the portal?: Yes CODE STATUS:: DNR/DNI INSURANCE COVERAGE / FINANCIAL ISSUES:: Commercial Medicare replacement ([facility] PPO) and financial asst 47. CURRENT HOME/COMMUNITY SERVICES/EQUIPMENT:: Leticia has a private caregiver who helps her with medication management and housekeeping. Leticia receives VNA RN, PT and OT, [id number], and she owns a FWW. PRIMARY CARE PHYSICIAN:: Lavelle Galindo MD ([facility]). POTENTIAL DISCHARGE NEEDS:: Follow-up appointment with PCP and resumption of VNA RN, PT, and OT services. PATIENT/FAMILY EDUCATION NEEDS:: Discharge plan, limitations, follow up plan, including Ask Me Three and self-management. ANTICIPATED BARRIERS TO DISCHARGE:: None. TRANSPORTATION:: [facility] will transport Leticia home when ready. CM will coordinate transport. PLAN:: Leticia will discharge home when medically cleared by provicer. Resumption of VNA RN, PT and OT services, and [id number] upon discharge. CM to coordinate transportation via [facility]. CM will continue to support Leticia with discharging planning needs.
--- NOTE | 2019-08-16 08:49 | NUR.NOTE ---
pt refused her am meds at this time will only take her po metoprolol. stated she will take the rest at a later time
[2019-08-16] MEDS: Metoprolol 50 MG TAB PO ×2 (08:51→19:33)
[2019-08-16] MEDS: MAGNESIUM SULFATE 4 GM/100 ML BAG IVPB (10:33)
[2019-08-16] MEDS: Pantoprazole 40 MG VIAL IVP (11:13)
[2019-08-16] MEDS: POTASSIUM CHLORIDE 10 MEQ/100 ML BAG 100 MEQ IVPB ×2 (11:32→12:54)
--- NOTE | 2019-08-16 11:34 | PHARADMIT ---
Addendum entered by Licha Atkinson 08/18/19 12:32: Pharmacy Note Subjective no n/v overnight per nursing report Objective BP-168/83 HR-96 other VS okay electrolytes-improved NA-135 SCr-1.28(up slightly) Assessment urine culture growing E.coli and mixed gram+ mónica MD ordered UA BM meds ordered/adjusted pantoprazole changed to Q12H, sucralfate ordered Plan watch for UA results and for urine culture sensitivities, holding abx for now continue to watch renal function (AMBER, not back to baseline yet) Addendum entered by Licha Atkinson 08/17/19 16:05: Pharmacy Note Subjective pt continues to be nauseous but feeling better than yesterday per progress note Objective VS-okay Na-133 K+3.1 Cl-96 mag-2.5 SCr-1.24(up) CIWA-1 Assessment ceftriaxone discontinued- urine culture no growth @ 24 hours PO mag held PO K+ replacement given Plan possible discharge tomorrow if continues to improve Original Note: Admission Pharmacy Clinical Review NAUSEA & VOMITING with DEHYDRATION Code Status DNR/DNI Current Weight Wgt-64.8 kg Renally Cleared and Narrow Therapeutic Index Meds CrCl~ 43.9 Meds-OK QTc Value / Action Taken QTc-482 Protonix, Effexor, BP Control, Fever BP- 175/94 Tmax-37.2C Electrolytes reviewed Na- 133 K+2.8 Mag-1.5 DVT Prophylaxis Lovenox Opiate Usage / Scheduled Bowel Regimen Ordered No Yes Plt/SCr for Heparin / Enoxaparin Plts-193 SCr-0.86 INR for Warfarin na H/H stable, WBC/Bands H&H- 11.0/35.5 WBC- 5.07 Antibiotic appropriateness Rocephin Cultures and Sensitivities Blood-Urine: Pending Surgical ABX d/c within 24 hr na DM control / Insulin Dosing BG-138 Heart Failure (Check EF%) (AMBER's, B-Block, Diuretics) Norvasc, Lopressor IV to PO Switch No Home Meds Reviewed Yes Home Meds Not Ordered Calium/D, B-12, Naltrexone, Zantac, B-6, Spironolactone, Comments
--- NOTE | 2019-08-16 12:47 | NS.NUTBLAN_ITS ---
Date of service: 08/16/19 Time of Service: 12:48 Nutritional Consult ASSESSMENT: 74 year old female with long history of ETOH abuse, admitted for n/v/d s/p UTI, dehydration. BMI indicates overweight status. Lives alone with transitional care liaison. Receives meals on wheels daily. reports eating one meal daily. Following regular meal plan with adequate intake. educated resident today on importance of optimal intake for strength and wellness, receptive to information and states she will add Ensure daily to supplement meals from meals on wheels. Reviewed fluid intake needs. At high nutritional risk in view of long hx of alcohol abuse, poor intake. INTERVENTION: educated pt on nutritional/fluid requirements, written material provided MONITORING AND EVALUATION: will monitor po intake and weight trends Time Spent in Nutritional Counseling and Treatment: 15 min face to face
--- NOTE | 2019-08-16 14:24 | PGE_ITS ---
Date of Service Date of service: 08/16/19 Time of Service: 14:25 Subjective Subjective Interval history since last seen: Leticia continues to report nausea and epigastric discomfort. She was not able to take all of her usual medications. Zofran did not relieve her nausea. The zofran was changed to phenergan. Her blood pressure and heart rate improved with her home metoprolol. Her nurse requested [facility] protocol. She offers no additional complaints. Objective Objective Clinical Data: Abnormal lab results 08/15/19 08/15/19 08/16/19 Range/Units 22:24 22:24 05:45 RBC (4.00-5.20) m/cumm Hgb 11.9 L (12.0-15.5) g/dL Hct (36.0-46.0) % MCHC 31.3 L (32.0-36.0) g/dL RDW 17.5 H (11.7-14.6) % Absolute Lymphocytes 0.66 L (1.2-3.4) k/cumm Sodium 132 L (136-145) mmol/L Potassium 3.3 L (3.5-5.1) mmol/L Chloride 93 L (98-107) mmol/L Anion Gap 15.2 H (3-11) mmol/L Creatinine 1.14 H (0.55-1.02) mg/dL Glucose 159 H (74-106) mg/dL Calcium 10.8 H (8.5-10.1) mg/dL Magnesium (1.8-2.4) mg/dL Total Bilirubin 2.5 H 1.5 H (0.2-1.0) mg/dL Conjugated Bilirubin 0.36 H (0.00-0.20) mg/dL Alkaline Phosphatase 131 H (46-116) U/L Total Protein 8.4 H (6.4-8.2) g/dL TSH (0.36-3.74) uIU/mL 08/16/19 08/16/19 Range/Units 06:16 06:16 RBC 3.99 L (4.00-5.20) m/cumm Hgb 11.0 L (12.0-15.5) g/dL Hct 35.5 L (36.0-46.0) % MCHC 31.0 L (32.0-36.0) g/dL RDW 16.9 H (11.7-14.6) % Absolute Lymphocytes 0.67 L (1.2-3.4) k/cumm Sodium 133 L (136-145) mmol/L Potassium 2.8 L* (3.5-5.1) mmol/L Chloride 95 L (98-107) mmol/L Anion Gap 14.2 H (3-11) mmol/L Creatinine (0.55-1.02) mg/dL Glucose 138 H (74-106) mg/dL Calcium (8.5-10.1) mg/dL Magnesium 1.5 L (1.8-2.4) mg/dL Total Bilirubin (0.2-1.0) mg/dL Conjugated Bilirubin (0.00-0.20) mg/dL Alkaline Phosphatase (46-116) U/L Total Protein (6.4-8.2) g/dL TSH 0.26 L (0.36-3.74) uIU/mL Vital Signs Temperature 37.2 C 08/16/19 10:58 Temperature Source Tympanic 08/16/19 10:58 Pulse 97 H 08/16/19 10:58 Pulse Rhythm Regular 08/16/19 01:17 Respiratory Rate 17 08/16/19 10:58 Respiratory Effort Non-Labored 08/16/19 01:17 Respiratory Depth Normal 08/16/19 01:17 Respiratory Pattern Normal 08/16/19 01:17 Blood Pressure 175/94 H 08/16/19 10:58 Blood Pressure Position Supine 08/15/19 22:36 Pulse Oximetry 96 08/16/19 10:58 Oxygen Delivery Method Room Air 08/16/19 10:58 Oxygen Flow Rate 0 08/16/19 10:58 Pain Level 0 08/16/19 10:58 Intake & Output 08/15/19 08/16/19 08/16/19 23:59 11:59 23:59 Intake Total 2049 Balance 2049 Weight 62.4 kg 64.8 kg Intake: IV 2049 Other: Urine Appearance Clear Stool Size Moderate Emesis Description Retching Laboratory Results WBC 5.07 k/cumm (4.4-10.8) 08/16/19 06:16 RBC 3.99 m/cumm (4.00-5.20) L 08/16/19 06:16 Hgb 11.0 g/dL (12.0-15.5) L 08/16/19 06:16 Hct 35.5 % (36.0-46.0) L 08/16/19 06:16 MCV 89.0 fL (80-95) 08/16/19 06:16 MCH 27.6 pg (27.0-33.0) 08/16/19 06:16 MCHC 31.0 g/dL (32.0-36.0) L 08/16/19 06:16 RDW 16.9 % (11.7-14.6) H 08/16/19 06:16 Plt Count 193 x1000/uL (130-400) 08/16/19 06:16 MPV 9.4 fL (8.0-11.0) 08/16/19 06:16 Immature Gran % 0.4 08/16/19 06:16 Neutrophils % 76.5 08/16/19 06:16 Lymphocytes % 13.2 08/16/19 06:16 Monocytes % 9.7 08/16/19 06:16 Eosinophils % 0.0 08/16/19 06:16 Basophils % 0.2 08/16/19 06:16 Absolute Neutrophils 3.88 k/cumm (1.2-6.7) 08/16/19 06:16 Absolute Lymphocytes 0.67 k/cumm (1.2-3.4) L 08/16/19 06:16 Absolute Monocytes 0.49 k/cumm (0.11-0.7) 08/16/19 06:16 Absolute Eosinophils 0.00 k/cumm (0.0-0.7) 08/16/19 06:16 Absolute Basophils 0.01 k/cumm (0.0-0.2) 08/16/19 06:16 Sodium 133 mmol/L (136-145) L 08/16/19 06:16 Potassium 2.8 mmol/L (3.5-5.1) L* 08/16/19 06:16 Chloride 95 mmol/L (98-107) L 08/16/19 06:16 Carbon Dioxide 23.8 mmol/L (21.0-32.0) 08/16/19 06:16 Anion Gap 14.2 mmol/L (3-11) H 08/16/19 06:16 BUN 9 mg/dL (7-18) 08/16/19 06:16 Creatinine 0.86 mg/dL (0.55-1.02) 08/16/19 06:16 Estimated GFR/1.73 m2 >= 60.00 (mL/min/1.73m2) 08/16/19 06:16 Glucose 138 mg/dL (74-106) H 08/16/19 06:16 Calcium 9.6 mg/dL (8.5-10.1) 08/16/19 06:16 Magnesium 1.5 mg/dL (1.8-2.4) L 08/16/19 06:16 Total Bilirubin 1.5 mg/dL (0.2-1.0) H 08/16/19 05:45 Conjugated Bilirubin 0.36 mg/dL (0.00-0.20) H 08/16/19 05:45 AST 33 U/L (15-37) 08/16/19 05:45 ALT 31 U/L (14-59) 08/16/19 05:45 Alkaline Phosphatase 115 U/L (46-116) 08/16/19 05:45 Troponin I < 0.05 ng/Ml (<0.06) 08/15/19 22:24 Total Protein 6.8 g/dL (6.4-8.2) 08/16/19 05:45 Albumin 3.9 g/dL (3.4-5.0) 08/16/19 05:45 Lipase 86 U/L (73-393) 08/15/19 22:24 TSH 0.26 uIU/mL (0.36-3.74) L 08/16/19 06:16 Free T4 1.37 ng/dL (0.76-1.46) 08/16/19 06:16
[2019-08-16] MEDS: LORazepam 1 MG TAB PO/SL (15:04)
[2019-08-16 17:19] LABS: T3,Free 4.5 pg/mL (2.8-5.3)
[2019-08-16 17:32] LABS: T3, Total 111 ng/dL (97-169)
[2019-08-16] MEDS: Lactated Ringers 1,000 ML 75 ML IV (17:49)
[2019-08-16] MEDS: Gabapentin 300 MG CAP PO (19:33)
[2019-08-16] MEDS: Magnesium Oxide 400 MG TAB PO (19:33)
[2019-08-17] VITALS (13 sets, daily range): BP systolic 115–159; BP diastolic 73–90; PULSE 72–99; RESP 1–18; TEMP 36–37; O2SAT 95–98
[2019-08-17] MEDS: Refresh PLUS Eye Drops 0.4ml OU ×5 (04:12→20:29)
[2019-08-17] MEDS: Enoxaparin 30 MG/0.3 ML SYR SC (04:12)
[2019-08-17] MEDS: Acetaminophen 325 MG TAB 650 MG PO ×3 (05:52→23:24)
[2019-08-17] MEDS: cefTRIAXone 1 GM/50 ML BAG IVPB (05:53)
[2019-08-17 07:15] LABS: HCT 32.1 % (36.0-46.0); HGB 9.9 g/dL (12.0-15.5); Mean Corp. HGB Concentration 30.8 g/dL (32.0-36.0); Mean Corpuscular Hemoglobin 27.6 pg (27.0-33.0); Mean Corpuscular Volume 89.4 fL (80-95); Mean Platelet Volume 9.4 fL (8.0-11.0); Platelet Count 193 x1000/uL (130-400); RBC 3.59 m/cumm (4.00-5.20); RBC Distribution Width 16.2 % (11.7-14.6); White Blood Cell Count 4.07 k/cumm (4.4-10.8)
[2019-08-17 07:22] LABS: Anion Gap 8.3 mmol/L (3-11); BUN 12 mg/dL (7-18); CO2 28.7 mmol/L (21.0-32.0); CREATININE 1.24 mg/dL (0.55-1.02); Calcium 9.1 mg/dL (8.5-10.1); Chloride 96 mmol/L (98-107); Glucose 118 mg/dL (74-106); Magnesium 2.5 mg/dL (1.8-2.4); Potassium 3.1 mmol/L (3.5-5.1); Sodium 133 mmol/L (136-145)
[2019-08-17] MEDS: Lactated Ringers 1,000 ML 75 ML IV (08:45)
[2019-08-17] MEDS: amLODIPine 10 MG TAB PO (08:47)
[2019-08-17] MEDS: Thiamine 100 MG TAB PO (08:47)
[2019-08-17] MEDS: Venlafaxine 150 MG CAPCR PO (08:47)
[2019-08-17] MEDS: Folic Acid 1 MG TAB PO (08:47)
[2019-08-17] MEDS: Metoprolol 50 MG TAB PO ×2 (08:47→20:29)
[2019-08-17] MEDS: Venlafaxine 37.5 MG CAPCR PO (08:47)
[2019-08-17] MEDS: Multivitamin TAB 1 TAB PO (08:48)
[2019-08-17] MEDS: Gabapentin 300 MG CAP PO ×2 (08:48→20:29)
[2019-08-17] MEDS: Fluticasone NASAL SPRAY 16 GM BTL NS (08:49)
[2019-08-17] MEDS: POTASSIUM CHLORIDE 20 MEQ, POTASSIUM CHLORIDE 10 MEQ 30 MEQ PO (09:55)
[2019-08-17] MEDS: Albuterol/Ipratropium 3 ML UPD VIAL IH (10:01)
[2019-08-17] MEDS: Normal Saline Flush 10 ML SYR IVP ×2 (12:06→12:15)
[2019-08-17] MEDS: Pantoprazole 40 MG VIAL IVP (12:06)
--- NOTE | 2019-08-17 13:12 | W.PM.PROGNOT ---
Date of Service Date of service: 08/17/19 Time of Service: 13:13 Assessment and Plan Assessment and plan (1) UTI (urinary tract infection): Status: Acute Assessment and plan: Her urine culture has yielded no growth at 24 hours. Discontinue ceftriaxone and monitor. Qualifiers: Urinary tract infection type: acute cystitis Hematuria presence: without hematuria Qualified Code(s): N30.00 - Acute cystitis without hematuria (2) Prerenal azotemia: Status: Acute Assessment and plan: Her renal function appears to be worse than baseline. Her creatinine is 1.24 today, her baseline appears to be closer to 0.8. She also has mildly low sodium and chloride. Continue gentle IV fluid hydration with normal saline. Reassess BMP in the morning. (3) GERD (gastroesophageal reflux disease): Status: Chronic Assessment and plan: Likely alcoholic gastritis. She continues to report epigastric discomfort. Continue IV PPI. Qualifiers: Esophagitis presence: with esophagitis Qualified Code(s): K21.0 - Gastro-esophageal reflux disease with esophagitis (4) Dehydration: Status: Acute Assessment and plan: She continues to report nausea and dizziness while ambulating, her renal function is still above baseline. Continue gentle IV fluid hydration with normal saline. Encourage oral intake. (5) Alcohol abuse: Status: Chronic Assessment and plan: With likely alcoholic gastritis causing abdominal pain and nausea. Continue PPI. Does not appear to be in alcohol withdrawal. Continue to monitor on CIWA protocol. (6) Hypokalemia: Status: Resolved Assessment and plan: Replete and monitor. (7) Hypomagnesemia: Status: Acute Assessment and plan: Repleted, improved to 2.5. Continue to monitor. (8) DVT prophylaxis: Status: Acute Assessment and plan: Subcutaneous lovenox. (9) Discharge planning issues: Status: Acute Assessment and plan: She is a DNR/DNI. She is likely to return home tomorrow if she continues to improve. This case was discussed with Dr. Stephenson who is in agreement. Subjective Subjective Interval history since last seen: Leticia is sitting up in the chair today, she continues to report nausea. She reports that she vomited once this morning. She was dizzy getting up out of bed. She feels better than yesterday overall. She slept well last night. Her blood pressure and heart rate have improved. She denies shortness of breath, coughing, wheezing, chest pain/pressure, palpitations. She continues to have some abdominal discomfort. She denies diarrhea, she has not had a bowel movement in 3 days. She is reluctant to take a stool softener but would consider if she does not have a bowel movement by the end of the day. Exam Narrative Exam Narrative: General: Elderly female sitting up in the chair, no acute distress. Alert and oriented, answers questions appropriately. Does not appear anxious. HEENT: Normocephalic, atraumatic, patch over the right eye, mucous membranes slightly dry. Neck: Supple, no JVD. Respiratory: Respirations appear even and unlabored, lung sounds clear throughout. Cardiovascular: Heart has regular rate and rhythm, no murmur appreciated. GI: Normoactive bowel sounds, abdomen is soft, mildly tender on palpation especially in the epigastric region, nondistended. Extremities: No clubbing, cyanosis or edema. Objective Objective Clinical Data: Abnormal lab results 08/17/19 08/17/19 Range/Units 06:50 06:50 WBC 4.07 L (4.4-10.8) k/cumm RBC 3.59 L (4.00-5.20) m/cumm Hgb 9.9 L (12.0-15.5) g/dL Hct 32.1 L (36.0-46.0) % MCHC 30.8 L (32.0-36.0) g/dL RDW 16.2 H (11.7-14.6) % Sodium 133 L (136-145) mmol/L Potassium 3.1 L (3.5-5.1) mmol/L Chloride 96 L (98-107) mmol/L Creatinine 1.24 H (0.55-1.02) mg/dL Glucose 118 H (74-106) mg/dL Magnesium 2.5 H (1.8-2.4) mg/dL Vital Signs Temperature 36.6 C 08/17/19 11:05 Temperature Source Tympanic 08/17/19 11:05 Pulse 83 08/17/19 11:05 Pulse Rhythm Regular 08/16/19 23:45 Respiratory Rate 18 08/17/19 11:05 Respiratory Effort Non-Labored 08/16/19 23:45 Respiratory Depth Normal 08/16/19 23:45 Respiratory Pattern Normal 08/16/19 23:45 Blood Pressure 128/81 08/17/19 11:05 Blood Pressure Position Supine 08/15/19 22:36 Pulse Oximetry 96 08/17/19 11:05 Oxygen Delivery Method Room Air 08/17/19 11:05 Oxygen Flow Rate 0 08/17/19 11:05 Pain Level 0 08/17/19 11:05 Intake & Output 08/16/19 08/17/19 08/17/19 23:59 11:59 23:59 Intake Total 1180 / 3230 1600 / 1840 240 / 1840 Output Total 200 / 200 450 / 450 Balance 980 / 3030 1150 / 1390 240 / 1390 Weight 63.2 kg Intake: IV 100 / 2150 1000 / 1000 Oral 1080 / 1080 600 / 840 240 / 840 Output: Urine 200 / 200 450 / 450 Other: Urine Color Yellow Yellow Urine Appearance Clear Clear Urine Odor Normal Comment pt is incontinent at times but voids via commode Voiding Methods Bedside Commode Toilet Diaper Incontinent Laboratory Results WBC 4.07 k/cumm (4.4-10.8) L 08/17/19 06:50 RBC 3.59 m/cumm (4.00-5.20) L 08/17/19 06:50 Hgb 9.9 g/dL (12.0-15.5) L 08/17/19 06:50 Hct 32.1 % (36.0-46.0) L 08/17/19 06:50 MCV 89.4 fL (80-95) 08/17/19 06:50 MCH 27.6 pg (27.0-33.0) 08/17/19 06:50 MCHC 30.8 g/dL (32.0-36.0) L 08/17/19 06:50 RDW 16.2 % (11.7-14.6) H 08/17/19 06:50 Plt Count 193 x1000/uL (130-400) 08/17/19 06:50 MPV 9.4 fL (8.0-11.0) 08/17/19 06:50 Immature Gran % 0.4 08/16/19 06:16 Neutrophils % 76.5 08/16/19 06:16 Lymphocytes % 13.2 08/16/19 06:16 Monocytes % 9.7 08/16/19 06:16 Eosinophils % 0.0 08/16/19 06:16 Basophils % 0.2 08/16/19 06:16 Absolute Neutrophils 3.88 k/cumm (1.2-6.7) 08/16/19 06:16 Absolute Lymphocytes 0.67 k/cumm (1.2-3.4) L 08/16/19 06:16 Absolute Monocytes 0.49 k/cumm (0.11-0.7) 08/16/19 06:16 Absolute Eosinophils 0.00 k/cumm (0.0-0.7) 08/16/19 06:16 Absolute Basophils 0.01 k/cumm (0.0-0.2) 08/16/19 06:16 Sodium 133 mmol/L (136-145) L 08/17/19 06:50 Potassium 3.1 mmol/L (3.5-5.1) L 08/17/19 06:50 Chloride 96 mmol/L (98-107) L 08/17/19 06:50 Carbon Dioxide 28.7 mmol/L (21.0-32.0) 08/17/19 06:50 Anion Gap 8.3 mmol/L (3-11) 08/17/19 06:50 BUN 12 mg/dL (7-18) 08/17/19 06:50 Creatinine 1.24 mg/dL (0.55-1.02) H 08/17/19 06:50 Estimated GFR/1.73 m2 42.40 (mL/min/1.73m2) 08/17/19 06:50 Glucose 118 mg/dL (74-106) H 08/17/19 06:50 Calcium 9.1 mg/dL (8.5-10.1) 08/17/19 06:50 Magnesium 2.5 mg/dL (1.8-2.4) H 08/17/19 06:50 Total Bilirubin 1.5 mg/dL (0.2-1.0) H 08/16/19 05:45 Conjugated Bilirubin 0.36 mg/dL (0.00-0.20) H 08/16/19 05:45 AST 33 U/L (15-37) 08/16/19 05:45 ALT 31 U/L (14-59) 08/16/19 05:45 Alkaline Phosphatase 115 U/L (46-116) 08/16/19 05:45 Troponin I < 0.05 ng/Ml (<0.06) 08/15/19 22:24 Total Protein 6.8 g/dL (6.4-8.2) 08/16/19 05:45 Albumin 3.9 g/dL (3.4-5.0) 08/16/19 05:45 Lipase 86 U/L (73-393) 08/15/19 22:24 TSH 0.26 uIU/mL (0.36-3.74) L 08/16/19 06:16 Free T4 1.37 ng/dL (0.76-1.46) 08/16/19 06:16 Free T3 pg/mL 4.5 pg/mL (2.8-5.3) 08/16/19 05:45 Total T3 111 ng/dL (97-169) 08/16/19 05:45
[2019-08-17] MEDS: Normal Saline 1,000 ML 50 ML IV (14:27)
--- NOTE | 2019-08-17 16:16 | CHAPLAIN ---
Leticia was lying in bed, shade was down an she was wearing her eye patch. We know each other from Leticia's previous admissions. She said her left side is uncomfortable because of arthritis. She thinks she will be discharged tomorrow. Her main concern is her dog (and she has cats too, I think). She said her caregiver will take care of the dog in the morning and her sister will come in in the evening.
--- NOTE | 2019-08-17 18:25 | CMPROGNOTE_ITS ---
- If Service Date Differs Date of service: 08/17/19 Time of Service: 18:25 Care Management Progress Note S/O: Leticia was lying on her bed when CM met with her. She stated that she was feeling like she needed to lie down, although she had been up in her chair earlier. She reported that she started becoming nauseas and vomiting while at a doctor's appointment a few days ago. She came to the ED but was sent home, and then she returned as her vomiting worsened. She reported that she would like to stay until she was feeling better, and that she was feeling dizzy when ambulating. CM will continue to follow. A: Leticia is a 74 year old female admitted to [facility] on 08/17/2019 for nausea and vomiting with dehydration. P: Anticipate Leticia will return home once medically cleared. She is currently receiving IV fluids for rehydration. She will be driven home via [facility] private vehicle when ready, coordinated by CM. She will follow up with her PCP, as recommended. CM will continue to follow.
[2019-08-17] MEDS: LORazepam 1 MG TAB PO/SL (21:17)
[2019-08-18] VITALS (9 sets, daily range): BP systolic 129–168; BP diastolic 77–89; PULSE 71–96; RESP 2–18; TEMP 36–36.8; O2SAT 96–99
[2019-08-18] MEDS: Refresh PLUS Eye Drops 0.4ml OU ×4 (04:07→16:19)
[2019-08-18] MEDS: Enoxaparin 30 MG/0.3 ML SYR SC (04:07)
[2019-08-18] MEDS: Acetaminophen 325 MG TAB 650 MG PO ×3 (06:24→22:34)
[2019-08-18 08:22] LABS: Abs Immature Grans 0.02 k/cumm (0.0-0.09); Absolute Basophil Count 0.02 k/cumm (0.0-0.2); Absolute Eosinophil Count 0.17 k/cumm (0.0-0.7); Absolute Lymphocyte Count 1.29 k/cumm (1.2-3.4); Absolute Neutrophil Count 1.91 k/cumm (1.2-6.7); Basophils % 0.5; Eosinophils % 4.5; HCT 29.5 % (36.0-46.0); HGB 9.1 g/dL (12.0-15.5); Immature Grans % 0.5; Lymphocytes % 33.9; Mean Corp. HGB Concentration 30.8 g/dL (32.0-36.0); Mean Corpuscular Hemoglobin 27.9 pg (27.0-33.0); Mean Corpuscular Volume 90.5 fL (80-95); Mean Platelet Volume 9.4 fL (8.0-11.0); Monocytes % 10.5; Neutrophils % 50.1; Platelet Count 179 x1000/uL (130-400); RBC 3.26 m/cumm (4.00-5.20); RBC Distribution Width 16.2 % (11.7-14.6); White Blood Cell Count 3.81 k/cumm (4.4-10.8)
[2019-08-18 08:29] LABS: Anion Gap 8.6 mmol/L (3-11); BUN 21 mg/dL (7-18); CO2 27.4 mmol/L (21.0-32.0); CREATININE 1.28 mg/dL (0.55-1.02); Calcium 8.8 mg/dL (8.5-10.1); Chloride 99 mmol/L (98-107); Estimated GFR 40.88 (mL/min/1.73m2); Glucose 108 mg/dL (74-106); Magnesium 1.9 mg/dL (1.8-2.4); Potassium 3.5 mmol/L (3.5-5.1); Sodium 135 mmol/L (136-145)
[2019-08-18] MEDS: Normal Saline Flush 10 ML SYR IVP ×2 (09:22→12:30)
[2019-08-18 09:23] LABS: Procalcitonin < 0.1 ng/mL
[2019-08-18] MEDS: Multivitamin TAB 1 TAB PO (09:24)
[2019-08-18] MEDS: Folic Acid 1 MG TAB PO (09:24)
[2019-08-18] MEDS: amLODIPine 10 MG TAB PO (09:24)
[2019-08-18] MEDS: Venlafaxine 37.5 MG CAPCR PO (09:24)
[2019-08-18] MEDS: Gabapentin 300 MG CAP PO ×2 (09:24→20:16)
[2019-08-18] MEDS: Venlafaxine 150 MG CAPCR PO (09:24)
[2019-08-18] MEDS: Thiamine 100 MG TAB PO (09:24)
[2019-08-18] MEDS: Metoprolol 50 MG TAB PO ×2 (09:24→20:16)
[2019-08-18] MEDS: Fluticasone NASAL SPRAY 16 GM BTL NS (09:25)
[2019-08-18 09:47] LABS: Creatine Kinase 12 U/L (26-192)
[2019-08-18] MEDS: Normal Saline 1,000 ML 100 ML IV (09:57)
[2019-08-18] MEDS: Albuterol/Ipratropium 3 ML UPD VIAL IH (10:42)
--- NOTE | 2019-08-18 11:03 | PGE_ITS ---
Date of Service Date of service: 08/18/19 Time of Service: 11:04 Assessment and Plan Assessment and plan (1) UTI (urinary tract infection): Status: Acute Assessment and plan: No fevers off abx. C&S from admission is not negative, but is mixed; I am unable to find a UA in the EMR. Will repeat UA. NO abx for now. Qualifiers: Urinary tract infection type: acute cystitis Hematuria presence: without hematuria Qualified Code(s): N30.00 - Acute cystitis without hematuria (2) Prerenal azotemia: Status: Acute Assessment and plan: Cr mildly worse today. Increase IVF. 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 (3) GERD (gastroesophageal reflux disease): Status: Chronic Assessment and plan: With vomiting again this morning - agree that this is likely alcoholic gastritis. Increase PPI, add carafate, and downgrade diet to clears. Qualifiers: Esophagitis presence: with esophagitis Qualified Code(s): K21.0 - Gastro-esophageal reflux disease with esophagitis (4) Dehydration: Status: Acute Assessment and plan: Increase IVF. (5) Alcohol abuse: Status: Chronic Assessment and plan: CIWA scores no higher than 2. Ok to d/c tele. Continue to monitor for alcohol withdrawal. Continue MVI, thiamine. (6) Hypokalemia: Status: Resolved Assessment and plan: Improved. Supplent in IVF and monitor mag. (7) Hypomagnesemia: Status: Acute Assessment and plan: 1.9 today - recheck in am. Continue PO supplements. (8) Malnutrition: Status: Acute Assessment and plan: Long standing history of alcohol abuse and 2 possible malignancies under investigation. Lots 6 kg in 2 months. The patient is very concerned about her weight loss. Consult nutrition. (9) DVT prophylaxis: Status: Acute Assessment and plan: Subcutaneous lovenox. (10) Discharge planning issues: Status: Acute Assessment and plan: She is a DNR/DNI. Obtain palliative care consult (has a lung mass and a presacral mass and is not sure if she wants the workup) PT/OT consults. Subjective Subjective Interval history since last seen: Had an episode of vomiting again this morning after eating eggs. States she had previously been constipated, but finally had a big BM yesterday. Reports epigastric pain and suprapubic pain. Denies dizziness unless she tries to stand up (sometimes, not now), Denies chest pain, shortness of breath. Reports weight loss. States she knows Dr Young, but has not met with her in a palliative care consult. 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 She saw IR at [facility] and a 3D guided biopsy is being planned on her presacral mass. Reports a fall at home with an elbow sprain. Exam Narrative Exam Narrative: General: elderly female who is quite talkative, A&Ox3, looks somewhat pale HEENT: EOMI, dry MM Heart: RRR, no m/r/g Lungs: Crackles at B bases Abdomen: abdomen is soft, full, + hyperactive bowel sounds Extremities: no e/c/c BLE's, 2+ pedal pulses B Objective Objective Clinical Data: Abnormal lab results 08/18/19 08/18/19 Range/Units 08:10 08:10 WBC 3.81 L (4.4-10.8) k/cumm RBC 3.26 L (4.00-5.20) m/cumm Hgb 9.1 L (12.0-15.5) g/dL Hct 29.5 L (36.0-46.0) % MCHC 30.8 L (32.0-36.0) g/dL RDW 16.2 H (11.7-14.6) % Sodium 135 L (136-145) mmol/L BUN 21 H D (7-18) mg/dL Creatinine 1.28 H (0.55-1.02) mg/dL Glucose 108 H (74-106) mg/dL Creatine Kinase 12 L (26-192) U/L Vital Signs Temperature 36.0 C L 08/18/19 07:40 Temperature Source Temporal Artery Scan 08/18/19 07:40 Pulse 96 H 08/18/19 09:28 Pulse Rhythm Regular 08/18/19 10:32 Respiratory Rate 18 08/18/19 07:40 Respiratory Effort Non-Labored 08/18/19 10:32 Respiratory Depth Normal 08/18/19 10:32 Respiratory Pattern Normal 08/18/19 10:32 Blood Pressure 168/83 H 08/18/19 07:40 Blood Pressure Position Supine 08/15/19 22:36 Pulse Oximetry 97 08/18/19 07:40 Oxygen Delivery Method Room Air 08/18/19 07:40 Oxygen Flow Rate 0 08/18/19 07:40 Pain Level 7 08/18/19 07:40 Comment 08/18/19 07:40 Intake & Output 08/17/19 08/17/19 08/18/19 11:59 23:59 11:59 Intake Total 1743.75 / 2583.75 840 / 2583.75 1018.334 / 1018.334 Output Total 450 / 725 275 / 725 500 / 500 Balance 1293.75 / 1858.75 565 / 1858.75 518.334 / 518.334 Weight 63.2 kg Intake: IV 1143.75 / 1143.75 1018.334 / 1018.334 Oral 600 / 1440 840 / 1440 Output: Urine 450 / 725 275 / 725 500 / 500 Other: Urine Color Yellow Yellow Yellow Urine Appearance Clear Clear Clear Urine Odor Normal Normal Normal Comment Pt was also minimally incontinent at this time Stool Size Large Stool Characteristics Soft Liquid Brown Voiding Methods Toilet Toilet Toilet Incontinent Laboratory Results WBC 3.81 k/cumm (4.4-10.8) L 08/18/19 08:10 RBC 3.26 m/cumm (4.00-5.20) L 08/18/19 08:10 Hgb 9.1 g/dL (12.0-15.5) L 08/18/19 08:10 Hct 29.5 % (36.0-46.0) L 08/18/19 08:10 MCV 90.5 fL (80-95) 08/18/19 08:10 MCH 27.9 pg (27.0-33.0) 08/18/19 08:10 MCHC 30.8 g/dL (32.0-36.0) L 08/18/19 08:10 RDW 16.2 % (11.7-14.6) H 08/18/19 08:10 Plt Count 179 x1000/uL (130-400) 08/18/19 08:10 MPV 9.4 fL (8.0-11.0) 08/18/19 08:10 Immature Gran % 0.5 08/18/19 08:10 Neutrophils % 50.1 08/18/19 08:10 Lymphocytes % 33.9 08/18/19 08:10 Monocytes % 10.5 08/18/19 08:10 Eosinophils % 4.5 08/18/19 08:10 Basophils % 0.5 08/18/19 08:10 Absolute Neutrophils 1.91 k/cumm (1.2-6.7) 08/18/19 08:10 Absolute Lymphocytes 1.29 k/cumm (1.2-3.4) 08/18/19 08:10 Absolute Monocytes 0.40 k/cumm (0.11-0.7) 08/18/19 08:10 Absolute Eosinophils 0.17 k/cumm (0.0-0.7) 08/18/19 08:10 Absolute Basophils 0.02 k/cumm (0.0-0.2) 08/18/19 08:10 Sodium 135 mmol/L (136-145) L 08/18/19 08:10 Potassium 3.5 mmol/L (3.5-5.1) 08/18/19 08:10 Chloride 99 mmol/L (98-107) 08/18/19 08:10 Carbon Dioxide 27.4 mmol/L (21.0-32.0) 08/18/19 08:10 Anion Gap 8.6 mmol/L (3-11) 08/18/19 08:10 BUN 21 mg/dL (7-18) H D 08/18/19 08:10 Creatinine 1.28 mg/dL (0.55-1.02) H 08/18/19 08:10 Estimated GFR/1.73 m2 40.88 (mL/min/1.73m2) 08/18/19 08:10 Glucose 108 mg/dL (74-106) H 08/18/19 08:10 Calcium 8.8 mg/dL (8.5-10.1) 08/18/19 08:10 Magnesium 1.9 mg/dL (1.8-2.4) 08/18/19 08:10 Total Bilirubin 1.5 mg/dL (0.2-1.0) H 08/16/19 05:45 Conjugated Bilirubin 0.36 mg/dL (0.00-0.20) H 08/16/19 05:45 AST 33 U/L (15-37) 08/16/19 05:45 ALT 31 U/L (14-59) 08/16/19 05:45 Alkaline Phosphatase 115 U/L (46-116) 08/16/19 05:45 Creatine Kinase 12 U/L (26-192) L 08/18/19 08:10 Troponin I < 0.05 ng/Ml (<0.06) 08/15/19 22:24 Total Protein 6.8 g/dL (6.4-8.2) 08/16/19 05:45 Albumin 3.9 g/dL (3.4-5.0) 08/16/19 05:45 Lipase 86 U/L (73-393) 08/15/19 22:24 Procalcitonin < 0.1 ng/mL 08/18/19 08:10 TSH 0.26 uIU/mL (0.36-3.74) L 08/16/19 06:16 Free T4 1.37 ng/dL (0.76-1.46) 08/16/19 06:16 Free T3 pg/mL 4.5 pg/mL (2.8-5.3) 08/16/19 05:45 Total T3 111 ng/dL (97-169) 08/16/19 05:45
--- NOTE | 2019-08-18 11:11 | IN_ITS ---
Date of service: 08/18/19 Time of Service: 10:00 PT Notes Visit Reasons: NAUSEA AND VOMITING WITH DEHYDRATION Inpatient Physical Therapy Evaluation Date: 08/18/2019 Referring Doctor: Laly Dumont MD PT Orders: PT CONSULT: Limited ability Precautions: Standard Patient Profile/Admitting Diagnosis: Orders received for this 74-year-old female who is had quite a complicated 2019. She has a history of alcoholism and had a recent fall in the middle of the summer where she fractured multiple areas suffered a hemothorax and spent a long period of time in the hospital. She most recently was at [facility] admitted from 06 30-07 06 due to sepsis related from pneumonia. Patient currently has been admitted due to acute case of nausea and vomiting as well as dizziness. PMHX: Medical History Alcohol abuse (Chronic) Alcoholic ketosis (Resolved) Allergic rhinitis (Chronic) Anemia (Chronic 12/20/16) Back pain, chronic (Chronic) Cataract (Chronic 11/07/15) Cervical radicular pain (Chronic) neck pain and [facility] Chronic alcoholic gastritis (Chronic 10/12/17) pls refrain from alcohol Corneal ulcer, right (Inactive ~08/23/18) 08/23/18; [facility]- Depression (Chronic) Elev transaminase/LDH (Chronic) due to alcohol Fall (Acute) Falling (Chronic) Genital herpes simplex (Chronic) recurrent gential; suppressive Valtrex GERD (gastroesophageal reflux disease) (Chronic) GI bleed (Chronic 12/20/16) Headache (Chronic) Hyperlipidemia (Chronic) Hypertension (Chronic) high today; she will check readings at home 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 Multiple rib fractures (Acute) 03/11/19 [facility] Non-cardiac chest pain (Chronic 09/21/16) [facility]/21[place]16 NEGATIVE MP Osteoarthritis (Chronic) Osteopenia (Chronic) 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) Pleural effusion on left (Chronic) 03/11/19 [facility] Right rib fracture (Resolved) Sciatica (Chronic) right, epidural injuections [facility] Tendinitis of left rotator cuff (Inactive) Tubular adenoma of colon (Chronic 01/28/17) Urinary incontinence (Chronic) 01/24/13 urethral suspension and sling at [facility] (bladder suspension 1991) Wernicke encephalopathy (Chronic) Surgical History Bladder Surgery suspension Colonoscopy - MAC (01/28/17) EGD - MAC (12/20/16) Ligation of fallopian tube Repair bladder injury, simple Social History/Home Situation: Patient lives independently at home in [place] Equipment Owned/DME: Front wheel walker Subjective: Patient states that she is doing okay still getting a little nauseous Objective: Patient lying in bed with head of bed to 20 degrees IV access in the right upper extremity Mental Status: Well oriented alert to person place and time Pain: None currently ROM: Right Upper Extremity: Within normal limits Left Upper Extremity: Within normal limits Right Lower Extremity: Within normal limits Left Lower Extremity: Within normal limits Strength: Right Upper Extremity: Globally 5 out of 5 Left Upper Extremity: Globally 5 out of 5 Right Lower Extremity: Globally 5 out of 5 Left Lower Extremity: Globally 5 out of 5 Bed Mobility/Transfers: Contact-guard assist mainly for bed linen Supine-sit: Contact-guard assist Sit-stand: Contact-guard assist Stand-sit: Contact-guard assist Gait: With good stride efficiency patient able to negotiate 10 steps with front wheel walker full weightbearing and contact-guard assist Balance: Static Sitting: Good Dynamic Sitting: Good Static Standing: Good Dynamic Standing: Fair Special Tests: Mobility Limitations Standardized Measure [facility] AM-PAC 6 clicks Basic Mobility Inpatient Short Form: Raw Score: 17 standardized Score: 42.13 CMS Score: 50.57 CMS Modifier: CK Informed Consent/Education: Patient instructed in purpose of PT consult and plan of care. ASSESSMENT: Patient is a 74-year-old female with a history of most recent health issues affecting function Admitted with nausea and vomiting Patient presents with the following impairment level findings: Ambulation intolerance, mild assistance needed for transfer and orientation, activity intolerance Pt will benefit from skilled therapy intervention in order to remedy their functional limitations and restore patient to a more appropriate and stable functional level. Impairments are contributing to the following functional limitations: AMPA score 42.13 CMS Score: 50.57 Patient is assessed as a moderate complexity initial evaluation [id number] based on the following: History: see above Examination: see above Presentation: Evolving Decision Making: Moderate based on impact score 50.57% Goals: Goals X1 week 1. Supine-Sit supervision 2. Sit-Supine supervision 3. Sit-Stand supervision 4. Stand-Sit supervision 5. Bed-Chair supervision 6. Gait up to 100 feet with least restrictive assistive device and supervision 7: Stairs 2 steps with supervision 8: Independent in Home program Plan of Care/Treatment Plan: 1-2x/day, 7 days/week x 1 week. Plan of care has been reviewed with the [facility] PULLER providing the service under Physical Therapy direction. Initiate Physical Therapy intervention for strengthening, bed mobility, transfers, gait, stairs, balance training, use of assistive device. DISCHARGE RECOMMENDATIONS: To home if functional goals have been completed and patient returns to baseline status of functional mobility TREATMENT CODE/TIME: Moderate complexity initial evaluation [id number] 10 AM to 10:20 AM 20 minutes of care [facility] Isamar Araujo
[2019-08-18] MEDS: Sucralfate 1 GM TAB PO ×3 (12:28→20:16)
[2019-08-18] MEDS: Pantoprazole 40 MG VIAL IVP (12:29)
[2019-08-18] MEDS: POTASSIUM CHLORIDE/0.9% NACL 1,000 ML 100 MEQ IV ×2 (12:33→22:23)
[2019-08-18 13:41] LABS: Bilirubin Negative (Negative); Blood Negative (Negative); Clarity Clear (Clear); Glucose Negative (Negative); Ketones Negative (Negative); Leukocyte Esterase Negative (Negative); Nitrite Negative (Negative); Specific Gravity <= 1.005 (1.005-1.025); Urobilinogen 0.2 EU/dL (Up TO 0.2)
[2019-08-18 14:01] LABS: Bacteria Negative HPF (Negative); C & S Indicated? No; Casts Negative LPF (Negative); Crystals Negative HPF (Negative); Epithelial Cells Few HPF (Negative); Mucus Negative (Negative); Other Cells Rare Transitional (Negative); RBC Negative HPF (0-2); WBC 0-2 HPF (0-5)
--- NOTE | 2019-08-18 15:10 | CMPROGNOTE_ITS ---
- If Service Date Differs Date of service: 08/18/19 Time of Service: 15:10 Care Management Progress Note S/O: Leticia was sitting up in a chair when CM met with her. She was pleasant and engaged readily in conversation. Leticia stated that she was starving. She noted that she has been placed on a liquid diet and she wants real food. Leticia does state that she is feeling better but remains fatigued. She also shared events that have contributed to her recent hospitalizations, such as changes in medication that made her lightheaded. CM will continue to follow. A: Leticia is a 74 year old female admitted to [facility] on 08/17/2019 for nausea and vomiting with dehydration. P Leticia will likely return home with a resumption of services. She currently has a private caregiver who helps with medication management and housekeeping and she also receives PT and OT. She will be driven home via [facility] private vehicle when ready, coordinated by CM. She will follow up with her PCP and discharge plan of care. CM will continue to support patient and discharge planning considerations.
[2019-08-18] MEDS: LORazepam 1 MG TAB PO/SL (20:17)
[2019-08-19] MEDS: Refresh PLUS Eye Drops 0.4ml OU ×4 (00:40→11:53)
[2019-08-19] MEDS: Normal Saline Flush 10 ML SYR IVP ×2 (00:40→11:52)
[2019-08-19] MEDS: Pantoprazole 40 MG VIAL IVP ×2 (00:40→11:51)
[2019-08-19] MEDS: Enoxaparin 30 MG/0.3 ML SYR SC (04:08)
[2019-08-19 04:10] VITALS: BP 161/88; PULSE 93; RESP 16; TEMP 36.8; O2SAT 98
[2019-08-19] MEDS: Acetaminophen 325 MG TAB 650 MG PO (06:16)
[2019-08-19 07:02] LABS: Abs Immature Grans 0.01 k/cumm (0.0-0.09); Absolute Basophil Count 0.01 k/cumm (0.0-0.2); Absolute Eosinophil Count 0.18 k/cumm (0.0-0.7); Absolute Lymphocyte Count 0.85 k/cumm (1.2-3.4); Absolute Neutrophil Count 1.47 k/cumm (1.2-6.7); Basophils % 0.4; Eosinophils % 6.4; HCT 30.2 % (36.0-46.0); HGB 8.9 g/dL (12.0-15.5); Immature Grans % 0.4; Lymphocytes % 30.1; Mean Corp. HGB Concentration 29.5 g/dL (32.0-36.0); Mean Corpuscular Hemoglobin 27.3 pg (27.0-33.0); Mean Corpuscular Volume 92.6 fL (80-95); Mean Platelet Volume 9.9 fL (8.0-11.0); Monocytes % 10.6; Neutrophils % 52.1; Platelet Count 190 x1000/uL (130-400); RBC 3.26 m/cumm (4.00-5.20); RBC Distribution Width 16.5 % (11.7-14.6); White Blood Cell Count 2.82 k/cumm (4.4-10.8)
[2019-08-19 07:10] LABS: Anion Gap 9.4 mmol/L (3-11); BUN 13 mg/dL (7-18); CO2 26.6 mmol/L (21.0-32.0); CREATININE 0.94 mg/dL (0.55-1.02); Chloride 104 mmol/L (98-107); Estimated GFR 58.37 (mL/min/1.73m2); Glucose 108 mg/dL (74-106); Magnesium 1.6 mg/dL (1.8-2.4); Potassium 4.1 mmol/L (3.5-5.1); Sodium 140 mmol/L (136-145)
[2019-08-19 07:56] LABS: Anisocytosis 1+; Diff Comment RBC Morph Reviewed
[2019-08-19 07:57] LABS: Poikilocytes 1+; Polychromasia Present
[2019-08-19] MEDS: Gabapentin 300 MG CAP PO (08:06)
[2019-08-19] MEDS: Thiamine 100 MG TAB PO (08:06)
[2019-08-19] MEDS: Docusate Sodium 100 MG CAP PO (08:06)
[2019-08-19] MEDS: Sucralfate 1 GM TAB PO ×2 (08:06→11:51)
[2019-08-19] MEDS: Venlafaxine 150 MG CAPCR PO (08:07)
[2019-08-19] MEDS: Venlafaxine 37.5 MG CAPCR PO (08:07)
[2019-08-19] MEDS: Multivitamin TAB 1 TAB PO (08:07)
[2019-08-19] MEDS: Metoprolol 50 MG TAB PO (08:07)
[2019-08-19] MEDS: amLODIPine 10 MG TAB PO (08:07)
[2019-08-19] MEDS: Folic Acid 1 MG TAB PO (08:08)
[2019-08-19] MEDS: Senna TAB 1 TAB PO (08:08)
[2019-08-19] MEDS: Fluticasone NASAL SPRAY 16 GM BTL NS (08:17)
[2019-08-19 08:37] VITALS: BP 157/86; PULSE 90; RESP 19; TEMP 36.4; O2SAT 98
[2019-08-19] MEDS: POTASSIUM CHLORIDE/0.9% NACL 1,000 ML 100 MEQ IV (09:36)
[2019-08-19] MEDS: Magnesium Oxide 400 MG TAB PO (09:47)
[2019-08-19] MEDS: MAGNESIUM SULFATE 2 GM/50 ML BAG IVPB (09:47)
[2019-08-19 10:40] VITALS: BP 143/83; BP 157/76; PULSE 77; PULSE 81; RESP 18; TEMP 36.1; O2SAT 92
--- NOTE | 2019-08-19 11:27 | DSE_ITS ---
Date of service: 08/19/19 Time of Service: 11:27 DS: Diagnosis Discharge Diagnosis (1) Alcoholic gastritis without bleeding: Status: Acute (2) UTI (urinary tract infection): Status: Resolved (3) Prerenal azotemia: Status: Resolved (4) GERD (gastroesophageal reflux disease): Status: Chronic (5) Dehydration: Status: Resolved (6) Alcohol abuse: Status: Chronic (7) Hypokalemia: Status: Resolved (8) Hypomagnesemia: Status: Acute (9) Malnutrition: Status: Acute Asessment and Plan: Ensure with meals recommended Discharge Plan Disposition Patient Disposition: HOME W/HOME HEALTH SERVICE Condition: Stable Discharge Details Chief Complaint: Nausea/Vomit/Diar Clinical Impression: Nausea and vomiting, Hypokalemia, Dehydration Reason For Visit: NAUSEA AND VOMITING WITH DEHYDRATION Admit Date/Time: 08/18/19 09:26 Admit Provider: Gwyn Blake Attending Provider: Gwyn Blake Primary Care Provider: Lavelle Galindo ED Provider: Wes Dc Hospital Course Hospital Course: Ms Garza is a 74 year old female with PMHx of alcohol abuse as well as suspected alcoholic gastritis, hypertension, 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 She was also dehydrated resulting in mild prerenal AMBER with hypokalemia and hypomagnesemia. She was treated with IVF, electrolyte repletion, PPI, addition of carafate. Her diet was advanced, and she is able to tolerate a regular consistency diet on the day of discharge. Her elevated blood pressures on presentation likely had to do with not being able to keep down her antihypertensive medications, which she has since been able to tolerate with expected improvement in her BP. Her aldactone is being stopped on d/c due to a tendency to become dehydrated. On the day of discharge, she is not requiring it for blood pressure control. Because there was a suspicion for a UTI on admission, the patient was empirically treated with ceftriaxone. However, her culture was contaminated, and repeat UA done after 3 days of antibiotics was negative for a UTI. If she did have a UTI on admission is not clear, but it appears to have resolved by the time of discharge. Objectively, the patient did not have alcohol withdrawal on this admission. The patient still has not met with palliative care as outpatient and she does need help making decisions about whether or not to pursue her workup of the lung and presacral masses. A referral is being sent for an oupatient palliative care consult. The patient is medically stable for discharge home today with resumption of home health nursing, PT, OT, meals on wheels. She will need to follow up with her PCP In 1-2 weeks. Again, outpatient palliative care consult is strongly recommended. Nutrition recommends outpatient nutrition follow up and at least 1 ensure a day if she is unable to eat at least 2 meals per day. Home Meds and New Rx's Prescriptions: New docusate sodium [Colace] 100 mg Capsule 100 mg PO BID Qty: 60 RF: 0 sennosides [Senokot] 8.6 mg Tablet 8.6 mg PO BID Qty: 60 RF: 0 sucralfate 1 gram Tablet 1 g PO AC & HS Qty: 120 RF: 0 bisacodyl 5 mg Tablet,Delayed Release (Dr/Ec) 10 mg PO .q72h prn PRN (Reason: constipation - if no BM In 3 days) Qty: 10 RF: 0 Continued venlafaxine 37.5 mg capsule,extended release 24hr 37.5 mg PO DAILY Qty: 30 RF: 11 venlafaxine 150 mg capsule,extended release 24hr 150 mg PO DAILY Qty: 30 RF: 11 ipratropium-albuterol 0.5 mg-3 mg(2.5 mg base)/3 mL solution for nebulization 3 ml IH QID PRN (Reason: shortness of breath) Qty: 90 RF: 3 magnesium oxide 400 mg magnesium capsule 400 mg PO BID Qty: 180 RF: 3 gabapentin 300 mg capsule 300 mg PO BID Qty: 90 RF: 5 metoprolol tartrate 50 mg tablet 50 mg PO BID Qty: 60 RF: 2 amlodipine 10 mg tablet 10 mg PO DAILY Qty: 90 RF: 3 thiamine mononitrate (vit B1) [Vitamin B-1 (mononitrate)] 100 mg tablet 100 mg PO DAILY Qty: 90 RF: 3 folic acid 1 mg Tablet 1 mg PO DAILY Qty: 14 RF: 0 multivitamin [Multiple Vitamins] Tablet 1 tab PO DAILY Qty: 0 RF: 0 Refresh Plus 0.5 % Dropperette 1 drp OU Q4H WHILE AWAKE Qty: 30 RF: 0 fluticasone propionate 50 mcg/actuation [place],Suspension 1 spray NS DAILY Qty: 15.8 RF: 0 ondansetron 4 mg tablet,disintegrating 4 mg PO Q6H PRN (Reason: nausea and vomiting) Qty: 20 RF: 0 Changed pantoprazole 40 mg Tablet,Delayed Release (Dr/Ec) 40 mg PO BID Qty: 60 RF: 0 Discontinued spironolactone [Aldactone] 25 mg tablet 25 mg PO DAILY Qty: 90 RF: 3 Discharge Instructions Instructions: Dehydration (DC) Additional Instructions: Return to the hospital with any fever, bleeding, chest pain, or shortness of breath. Follow up with your PCP within 1-2 weeks and follow up with Palliative care. Drink 1 ensure per day if you are not able to eat at least 2 meals a day. Eat at least 1 can of vegetables daily and a good source of protein daily, as discussed with fabric stretcher. Care Plan Goals: Resumption of home health nursing, PT, OT, meals on wheels. Labs 08/23/19 to be done by home health nursing: CBC with diff, BMP, magnesium. Results to Dr Samuel mesa. Outpatient palliative care consult. Referrals: Genoveva Young MD, [place] [, [place] MEDICAL STAFF] - Lavelle Galindo [Primary Care Provider] - Activity:: Activity as Tolerated Equipment/Supplies:: cane Diet:: Low Sodium Discharge Orders Discharge Orders: Discharge Order (Routine); Ordered 08/19/19 Ordered By: Laly Dumont DS: Summary Status at Discharge Functional status at discharge: uses cane/walker Overall status at discharge: patient is back to baseline Mental Status: mental status grossly normal Speech and Movement: speech and movement normal Mood: congruent mood Affect: normal affect Exam Narrative Exam Narrative: General: elderly female, A&Ox3, appears to be in her normal state of health HEENT: EOMI, MMM Heart: RRR, no m/r/g Lungs: Crackles at B bases (normal for her) Abdomen: abdomen is soft, full, + hyperactive bowel sounds Extremities: no e/c/c BLE's, 2+ pedal pulses B Psych Mental Status: mental status grossly normal Speech and Movement: speech and movement normal Mood: congruent mood Affect: normal affect DS: Data Vitals/I&O Vitals and I&O: Vital Signs Temperature 36.4 C L 08/19/19 08:37 Temperature Source Temporal Artery Scan 08/19/19 08:37 Pulse 90 08/19/19 08:37 Pulse Rhythm Regular 08/19/19 08:24 Respiratory Rate 19 08/19/19 08:37 Respiratory Effort Non-Labored 08/19/19 08:24 Respiratory Depth Normal 08/19/19 08:24 Respiratory Pattern Normal 08/19/19 08:24 Blood Pressure 157/86 H 08/19/19 08:37 Blood Pressure Position Supine 08/15/19 22:36 Pulse Oximetry 98 08/19/19 08:37 Oxygen Delivery Method Room Air 08/19/19 08:37 Oxygen Flow Rate 0 08/19/19 08:37 Pain Level 2 08/19/19 08:37 Comment 08/19/19 08:37 Intake & Output 08/18/19 08/18/19 08/19/19 11:59 23:59 11:59 Intake Total 1918.334 / 4511.667 2593.333 / 4511.667 1111.667 / 1111.667 Output Total 800 / 1850 1050 / 1850 386 / 386 Balance 1118.334 / 2661.667 1543.333 / 2661.667 725.667 / 725.667 Weight 60.15 kg Intake: IV 1018.334 / 2261.667 1243.333 / 2261.667 771.667 / 771.667 Oral 900 / 2250 1350 / 2250 340 / 340 Output: Urine 800 / 1850 1050 / 1850 350 / 350 Post Void Residual 0 / 0 36 / 36 Other: Urine Color Yellow Yellow Yellow Urine Appearance Clear Clear Clear Urine Odor Normal Normal None Comment small amount of incontinence as well inct Pt brief was soaked per Pt, when RN bladder scanned Pt after came back with 0 ML's PVR. Stool Size Copious Stool Characteristics Soft Liquid Brown Voiding Methods Toilet Toilet Incontinent Incontinent Data Completed and Pending Completed studies during hospitalization [Text1]: CXR and XR abdomen/flat/upright 08/15/19: Negative chest. Negative abdomen. Labs on day of discharge: Labs from last 24 hours 08/19/19 08/19/19 08/19/19 06:30 06:30 06:30 WBC 2.82 L RBC 3.26 L Hgb 8.9 L Hct 30.2 L MCV 92.6 MCH 27.3 MCHC 29.5 L RDW 16.5 H Plt Count 190 MPV 9.9 Immature Gran % 0.4 Neutrophils % 52.1 Lymphocytes % 30.1 Monocytes % 10.6 Eosinophils % 6.4 Basophils % 0.4 Absolute Neutrophils 1.47 Absolute Lymphocytes 0.85 L Absolute Monocytes 0.30 Absolute Eosinophils 0.18 Absolute Basophils 0.01 Differential Comment Rbc morph reviewed RBC Morphology See below Polychromasia Present Poikilocytosis 1+ Anisocytosis 1+ Sodium 140 Potassium 4.1 Chloride 104 Carbon Dioxide 26.6 Anion Gap 9.4 BUN 13 D Creatinine 0.94 Estimated GFR/1.73 m2 58.37 Glucose 108 H Hemoglobin A1c Pending Calcium 9.0 Magnesium 1.6 L Urine Color Urine Clarity Urine pH Ur Specific [place] Urine Protein Urine Ketones Urine Blood Urine Nitrite Urine Bilirubin Urine Urobilinogen Ur Leukocyte Esterase Urine RBC Urine WBC Ur Epithelial Cells Urine Crystals Urine Bacteria Urine Casts Urine Mucus Urine Other Ur Culture Indicated? Urine Glucose 08/18/19 12:40 WBC RBC Hgb Hct MCV MCH MCHC RDW Plt Count MPV Immature Gran % Neutrophils % Lymphocytes % Monocytes % Eosinophils % Basophils % Absolute Neutrophils Absolute Lymphocytes Absolute Monocytes Absolute Eosinophils Absolute Basophils Differential Comment RBC Morphology Polychromasia Poikilocytosis Anisocytosis Sodium Potassium Chloride Carbon Dioxide Anion Gap BUN Creatinine Estimated GFR/1.73 m2 Glucose Hemoglobin A1c Calcium Magnesium Urine Color Yellow Urine Clarity Clear Urine pH 6.0 Ur Specific [place] <= 1.005 Urine Protein Trace H Urine Ketones Negative Urine Blood Negative Urine Nitrite Negative Urine Bilirubin Negative Urine Urobilinogen 0.2 Ur Leukocyte Esterase Negative Urine RBC Negative Urine WBC 0-2 Ur Epithelial Cells Few Urine Crystals Negative Urine Bacteria Negative Urine Casts Negative Urine Mucus Negative Urine Other Rare transitional Ur Culture Indicated? No Urine Glucose Negative Preliminary micro results at discharge 08/16/19 06:16 Blood Culture - Preliminary Blood NO GROWTH 72 HOURS 08/16/19 05:45 Blood Culture - Preliminary Blood NO GROWTH 72 HOURS [facility] Medical History (Updated 08/19/19 @ 11:28 by Laly Dumont MD) Alcohol abuse (Chronic) Alcoholic ketosis (Resolved) Allergic rhinitis (Chronic) Anemia (Chronic 12/20/16) Back pain, chronic (Chronic) CAP (community acquired pneumonia) (Resolved) Cataract (Chronic 11/07/15) Cervical radicular pain (Chronic) neck pain and [facility]D [facility] Chronic alcoholic gastritis (Chronic 10/12/17) pls refrain from alcohol Corneal ulcer, right (Inactive ~08/23/18) 08/23/18; [facility] Depression (Chronic) Elev transaminase/LDH (Chronic) due to alcohol Fall (Acute) Falling (Chronic) Genital herpes simplex (Chronic) recurrent gential; suppressive Valtrex GERD (gastroesophageal reflux disease) (Chronic) GI bleed (Resolved 12/20/16) Headache (Resolved) Hyperlipidemia (Chronic) Hypertension (Chronic) high today; she will check readings at home 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 Multiple rib [facility] (Res[facility]) [facility] (Resolved 09/21/16) [facility] 09/21/16 NEGATIVE MP Osteoarthritis (Chronic) Osteopenia (Chronic) 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) Pleural effusion on left (Resolved) [facility] Right rib fracture (Resolved) Sciatica (Chronic) right, epidural injuections [facility] Tendinitis of left rotator cuff (Inactive) Tubular adenoma of colon (Chronic 01/28/17) Urinary incontinence (Chronic) 01/24/13 urethral suspension and sling at [facility] (bladder suspension 1991) Wernicke encephalopathy (Chronic) Surgical History (Updated 08/16/19 @ 04:35 by Gwyn Blake) Bladder Surgery suspension Colonoscopy - MAC (01/28/17) EGD - MAC (12/20/16) History of bilateral ligation of fallopian tubes (Inactive) Ligation of fallopian tube Repair bladder injury, simple Family History Mother No problems noted. Father , DROWNED at age 50. No problems noted. Sister Personal history of malignant neoplasm MELANOMA Sister No problems noted. Grandfather Personal history of malignant neoplasm STOMACH Grandfather Personal history of malignant neoplasm PROSTATE Grandmother Heart disease MD Acute ill-defined cerebrovascular disease Grandmother Personal history of malignant neoplasm UTERINE Aunt , MD Heart disease MD Aunt , MD Heart disease Brother No problems noted. Social History Smoking/Tobacco Use Status: Former Tobacco Use Alcohol Intake: current Alcohol Intake frequency: 3 or more drinks per day Alcohol type: hard liquor Drug use: Never Substance use type: does not use Details: Patient states that her last alcohol was 6 days ago 08/09/19 Current gender identity: female Do you feel safe at home: Yes Do you feel safe in your relationship?: Yes Additional Social history: my caregiver is an anxiety attack person
--- NOTE | 2019-08-19 11:57 | W.NUTCONSULT ---
Date of service: 08/19/19 Time of Service: 11:57 Nutritional Consult ASSESSMENT: Appreciate nutrition consult for Thoedora Garza who is hospitalized with alcoholic gastritis. States she vomits about once a week but has no warning for when it will happen. She carries a bag with her at all times while home. Theodora states she has meals on wheels but does not enjoy the meals and often does not eat them. She has difficulty cooking because she cannot stand long secondary to arthritis. Her caregiver does her grocery shopping. States she has barriers to eating well secondary to limited income and a problem with her dentures. Theodora states she has Garth Luis Miguel for breakfast some days; otherwise microwaves macaroni and cheese. She will eat vegetables straight out of the can; enjoys many fruits. She occasionally has cheerios and milk. Her only sweet desire is chocolate. BMI 25 NUTRITIONAL DIAGNOSIS: Inadequate nutrient intake secondary to access to food, chewing problems, inability to prepare foods INTERVENTION: Discussed obtaining foods that can be microwaved that include protein i.e. hamburg, eggs, cheese. Discussed food resources including food shelves although she states she does not have access to those. She asks about Ensure and this is encouraged if she is unable to procure and make real food. MONITORING AND EVALUATION: Theodora will eat 1 can of vegetables daily; a good source of protein daily She will add 1 ensure daily if she is unable to eat at least 2 meals a day Theodora may benefit from additional nutrition support to help her plan better and consistent meals for herself. Time Spent in Nutritional Counseling and Treatment: 15 minutes face to face
--- NOTE | 2019-08-19 15:03 | PDOC.CMDIS ---
- If Service Date Differs Date of service: 08/19/19 Time of Service: 15:03 LACE Index Scoring Tool - Questions: Length of Stay (in days): 3 Acuity (Admit via E.D.?): Yes Comorbidities: Dementia E.D. Visits: 23 - Answers: Total Score: 13 Risk of Readmission: High Risk Care Management Discharge Reason for Hospitalization: Nausea and vomiting with dehydration. Discharge Plan: Leticia will be discharged home with a resumption of home health services which include nursing, PT and OT. She will follow up with her PCP an ddischarge plan of care. Leticia will trasport via RCT coordinated by CM. Patient/Family Education Needs: Discharge plan, limitations, follow up plan and Ask Me Three. Services Needed at Discharge: Home Health Care Services
[2019-08-20 04:03] LABS: Hemoglobin A1C 4.9 % (4.5-6.2)
--- NOTE | 2019-08-20 09:06 | PT.INTREAT ---
Date of service: 08/19/19 Time of Service: 09:06 PT Notes Visit Reasons: NAUSEA AND VOMITING WITH DEHYDRATION Inpatient Physical Therapy Treatment Note [facility] Date: 08/19/19 PRECAUTIONS: Fall SUBJECTIVE: Leticia is agreeable to participating in PT, she is hopeful that she will be returning to home today. OBJECTIVE: PAIN: No c/o pain BED MOBILITY/TRANSFERS Sit-stand: S Stand-sit: S GAIT Assistive Device: FWW SPC Weight bearing: Full Assist: S with FWW SBA with SPC Distance: 75' with FWW SBA with SPC Deviation: SOB with gait training STAIRS: Up/down 3x4 and 2x6 using B rails and a step-over pattern with supervision ASSESSMENT: Patient tolerated session well with c/o increased SOB with gait training. She was able to tolerate a progression in gait distance with SPC support and SBA. PLAN: As per primary PT TREATMENT CODE/TIME: 20 minutes; [id number]
--- NOTE | 2019-08-21 08:08 | INDS_ITS ---
Date of service: 08/21/19 Time of Service: 08:09 PT Notes Visit Reasons: NAUSEA AND VOMITING WITH DEHYDRATION Inpatient Physical Therapy Discharge Summary Dates: 08/21/2019 Dates of Service: 08/18/2019 through 08/19/2019 This is a clinical summary of care provided on the duration of dates listed above. No charge was made in the completion of this documentation. Referring Doctor: Laly Dumont MD PT Orders: PT CONSULT: Limited ability Precautions: Standard Patient Profile/Admitting Diagnosis: Orders received for this 74-year-old female who is had quite a complicated 2019. She has a history of alcoholism and had a recent fall in the middle of the summer where she fractured multiple areas suffered a hemothorax and spent a long period of time in the hospital. She most recently was at [facility] admitted from 06 30-07 06 due to sepsis related from pneumonia. Patient currently has been admitted due to acute case of nausea and vomiting as well as dizziness. PMHX: Medical History Alcohol abuse (Chronic) Alcoholic ketosis (Resolved) Allergic rhinitis (Chronic) Anemia (Chronic 12/20/16) Back pain, chronic (Chronic) Cataract (Chronic 11/07/15) Cervical radicular pain (Chronic) neck pain and DJD [facility] Chronic alcoholic gastritis (Chronic 10/12/17) pls refrain from alcohol Corneal ulcer, right (Inactive ~08/23/18) 08/23/18; [facility]- Depression (Chronic) Elev transaminase/LDH (Chronic) due to alcohol Fall (Acute) Falling (Chronic) Genital herpes simplex (Chronic) recurrent gential; suppressive Valtrex GERD (gastroesophageal reflux disease) (Chronic) GI bleed (Chronic 12/20/16) Headache (Chronic) Hyperlipidemia (Chronic) Hypertension (Chronic) high today; she will check readings at home 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 Multiple rib fractures (Acute) 03/11/19 [facility] Non-cardiac chest pain (Chronic 09/21/16) [facility] 09/21/16 NEGATIVE MP Osteoarthritis (Chronic) Osteopenia (Chronic) 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) Pleural effusion on left (Chronic) 03/11/19 [facility] Right rib fracture (Resolved) Sciatica (Chronic) right, epidural injuections [facility] Tendinitis of left rotator cuff (Inactive) Tubular adenoma of colon (Chronic 01/28/17) Urinary incontinence (Chronic) 01/24/13 urethral suspension and sling at [facility] (bladder suspension 1991) Wernicke encephalopathy (Chronic) Surgical History Bladder Surgery suspension Colonoscopy - MAC (01/28/17) EGD - MAC (12/20/16) Ligation of fallopian tube Repair bladder injury, simple Social History/Home Situation: Patient lives independently at home in [place] Equipment Owned/DME: Front wheel walker Subjective: Patient states that she is doing okay still getting a little nauseous Objective: Patient lying in bed with head of bed to 20 degrees IV access in the right upper extremity Mental Status: Well oriented alert to person place and time Pain: None currently ROM: Right Upper Extremity: Within normal limits Left Upper Extremity: Within normal limits Right Lower Extremity: Within normal limits Left Lower Extremity: Within normal limits Strength: Right Upper Extremity: Globally 5 out of 5 Left Upper Extremity: Globally 5 out of 5 Right Lower Extremity: Globally 5 out of 5 Left Lower Extremity: Globally 5 out of 5 Bed Mobility/Transfers: Contact-guard assist mainly for bed linen Supine-sit: Supervision Sit-stand: Supervision Stand-sit: Supervision Gait: With the CERTIFIED PERSONAL FINANCE COUNSELOR, patient was able to tolerate 75 feet on level surface ambulation with 4 wheeled walker FWB requiring only supervision. Patient also tolerated 225 feet level surface ambulation using single-point cane with FWB requiring SBA with minimal shortness of breath noted. Patient also negotiated three 4 inch steps and two 6 inch steps while holding onto bilateral rails using step over step pattern with supervision. Balance: Static Sitting: Good Dynamic Sitting: Good Static Standing: Good Dynamic Standing: Fair ASSESSMENT: Patient is a 74-year-old female with a history of most recent health issues affecting function admitted with nausea and vomiting. Patient presents with the following impairment level findings: Ambulation intolerance, mild assistance needed for transfer and orientation, activity intolerance Goals: Goals X1 week 1. Supine-Sit supervision MET 2. Sit-Supine supervision MET 3. Sit-Stand supervision MET 4. Stand-Sit supervision MET 5. Bed-Chair supervision MET 6. Gait up to 100 feet with least restrictive assistive device and supervision MET 7: Stairs 2 steps with supervision MET 8: Independent in Home program MET DISCHARGE RECOMMENDATIONS: To home if functional goals have been completed and patient returns to baseline status of functional mobility TREATMENT CODE/TIME: NC. Thank you very much for this referral. Tawana Cruz PT, DPT, CLT [facility] Inpatient PT at [facility]
== END 2019-08-19 13:31 | disposition home health service (06) | DRG 392 ==
LOC: ER 08-16 00:36 → MS 08-16 01:02
PROVIDERS: Nurse Practitioner; Admitting Provider Internal Medicine; Emergency Provider Emergency Medicine; PCP Family Medicine; Visit Provider Internal Medicine
DX: K29.20 Alcoholic gastritis without bleeding (principal); N17.9 Acute kidney failure, unspecified; N39.0 Urinary tract infection, site not specified; E46 Unspecified protein-calorie malnutrition; F10.20 Alcohol dependence, uncomplicated; K21.9 Gastro-esophageal reflux disease without esophagitis; B96.20 Unspecified Escherichia coli [E. coli] as the cause of diseases classified elsewhere; E86.0 Dehydration; E87.6 Hypokalemia; E83.42 Hypomagnesemia; Z68.25 Body mass index [BMI] 25.0-25.9, adult
CPT/HCPCS: 36415; 80048; 80053; 80076; 82550; 83690; 84145; 85027; 87040; 87077; 93005; 96361; 96365; 96366; 96375; 97162; 97530; 99220; 99225; 99232; 99239; 99285; 74022; 81003; 81015; 83036; 83735; 84439; 84443; 84480; 84481; 84484; 85025; 87086; 87186; 93010; 94640; 99284; G0378; J0696; J1650; J2405; J3475; J3480; J7620

== ENCOUNTER 2019-08-23 16:05 | Outpatient (REF) | payer OTHER, SELFPAY ==
[2019-08-23 16:26] LABS: Abs Immature Grans 0.01 k/cumm (0.0-0.09); Absolute Basophil Count 0.02 k/cumm (0.0-0.2); Absolute Lymphocyte Count 1.15 k/cumm (1.2-3.4); Absolute Monocyte Count 0.91 k/cumm (0.11-0.7); Basophils % 0.5; Eosinophils % 2.6; HCT 31.4 % (36.0-46.0); HGB 9.7 g/dL (12.0-15.5); Immature Grans % 0.3; Lymphocytes % 29.6; Mean Corp. HGB Concentration 30.9 g/dL (32.0-36.0); Mean Corpuscular Hemoglobin 27.8 pg (27.0-33.0); Mean Platelet Volume 8.4 fL (8.0-11.0); Monocytes % 23.4; Neutrophils % 43.6; Platelet Count 451 x1000/uL (130-400); RBC 3.49 m/cumm (4.00-5.20); White Blood Cell Count 3.89 k/cumm (4.4-10.8)
[2019-08-23 16:43] LABS: Anion Gap 12.2 mmol/L (3-11); BUN 10 mg/dL (7-18); CO2 25.8 mmol/L (21.0-32.0); CREATININE 0.83 mg/dL (0.55-1.02); Calcium 9.9 mg/dL (8.5-10.1); Chloride 99 mmol/L (98-107); Glucose 90 mg/dL (74-106); Magnesium 1.5 mg/dL (1.8-2.4); Potassium 4.3 mmol/L (3.5-5.1); Sodium 137 mmol/L (136-145)
== END 2019-08-23 16:25 ==
LOC: LBN 16:05
PROVIDERS: PCP Family Medicine; Visit Provider Family Medicine
DX: I10 Essential (primary) hypertension (principal); F10.10 Alcohol abuse, uncomplicated; E51.2 Wernicke's encephalopathy; N28.89 Other specified disorders of kidney and ureter
CPT/HCPCS: 80048; 83735; 85025

== ENCOUNTER 2019-09-12 08:49 | Emergency (ER) | payer OTHER, SELFPAY ==
[2019-09-12 08:52] VITALS: BP 135/60; PULSE 96; RESP 16; TEMP 36.5; O2SAT 95
--- NOTE | 2019-09-12 09:03 | ED.GENADUL_ITS ---
Discharge Plan Disposition Patient Disposition: HOME Condition: Stable Discharge Details Chief Complaint: Orthopedic Clinical Impression: Closed right humeral fracture Primary Care Provider: Lavelle Galindo ED Provider: Franki Jovel Home Meds and New Rx's Prescriptions: No Action venlafaxine 37.5 mg capsule,extended release 24hr 37.5 mg PO DAILY Qty: 30 RF: 11 venlafaxine 150 mg capsule,extended release 24hr 150 mg PO DAILY Qty: 30 RF: 11 ipratropium-albuterol 0.5 mg-3 mg(2.5 mg base)/3 mL solution for nebulization 3 ml IH QID PRN (Reason: shortness of breath) Qty: 90 RF: 3 hydrochlorothiazide 12.5 mg tablet 12.5 mg PO DAILY Qty: 90 RF: 3 gabapentin 300 mg capsule 300 mg PO BID Qty: 90 RF: 5 metoprolol tartrate 50 mg tablet 50 mg PO BID Qty: 180 RF: 3 sennosides [Senokot] 8.6 mg tablet 8.6 mg PO BID Qty: 180 RF: 3 sucralfate 1 gram tablet 1 g PO AC & HS Qty: 120 RF: 5 magnesium oxide 400 mg magnesium capsule 400 mg PO BID Qty: 180 RF: 3 amlodipine 10 mg tablet 10 mg PO DAILY Qty: 90 RF: 3 thiamine mononitrate (vit B1) [Vitamin B-1 (mononitrate)] 100 mg tablet 100 mg PO DAILY Qty: 90 RF: 3 pantoprazole 40 mg tablet,delayed release (DR/EC) 40 mg PO DAILY Qty: 90 RF: 3 Ensure Active High Protein Liquid 414 ml PO DAILY Qty: 27777 RF: 11 folic acid 1 mg Tablet 1 mg PO DAILY Qty: 14 RF: 0 multivitamin [Multiple Vitamins] Tablet 1 tab PO DAILY Qty: 0 RF: 0 Refresh Plus 0.5 % Dropperette 1 drp OU Q4H WHILE AWAKE Qty: 30 RF: 0 fluticasone propionate 50 mcg/actuation [place],Suspension 1 spray NS DAILY Qty: 15.8 RF: 0 ondansetron 4 mg tablet,disintegrating 4 mg PO Q6H PRN (Reason: nausea and vomiting) Qty: 20 RF: 0 docusate sodium [Colace] 100 mg Capsule 100 mg PO BID Qty: 60 RF: 0 bisacodyl 5 mg Tablet,Delayed Release (Dr/Ec) 10 mg PO .q72h prn PRN (Reason: constipation - if no BM In 3 days) Qty: 10 RF: 0 Discharge Instructions Additional Instructions: 1. Drink plenty of fluids. 2. Continue all medications as prescribed. 3. Acetaminophen 1000mg every 4 hours (up to 5 time a day) and/or ibuprofen 600mg every 6 hours as needed for fever or pain. 4. Wear sling for comfort. Do frequent hand arm rotations. 5. Ice sore areas frequently. 6. Follow-up with your doctor to set up outpatient physical therapy. Return to the Emergency Department (ED) if your condition worsens, does not improve as expected, or for ANY other concerns. Specifically, return if you have new or uncontrolled pain, worsening fever, difficulty breathing, vomiting, or are unable to drink fluids. Medical Decision Making 74-year-old with a past medical history which includes alcohol abuse, COPD, chronic cervical pain and previous orthopedic injuries. Transported here after accidentally falling and striking her right shoulder. She denied other significant injuries and on exam had focal humeral tenderness with no evidence of dislocation. X-ray diagnostic for a impacted proximal right humerus fracture with no radiographic evidence of dislocation. Discussed findings with patient was placed in a sling. Discharged home with a plan for OTC analgesia and follow-up for PT. Remained stable in ED with no other accelerating constitutional complaints. Given usual and customary return instructions prior to discharge. Medical Records Medical records reviewed: Yes I reviewed the patient's medical records. Imaging Data Radiologic Study: Attestation: I personally reviewed and interpreted this imaging study as follows: Imaging: X-Ray (Right shoulder) My impression: Impacted proximal humerus fracture with no dislocation interpreted independently contemporaneously by myself. Radiologist's impression: Same HPI 74-year-old woman with a past medical history which includes alcohol abuse, anemia, chronic back pain, CAP, and chronic cervical radicular pain. Transf erred here via EMS after accidentally falling at home this morning. Describes wearing slippers which are slippery and inadvertently fell with an impact to her right shoulder. She denies hitting head impact, neck pain, back pain, chest wall pain, hip pain or other extremity injury. She does have severe localized pain to her proximal right shoulder which is worse with direct palpation and effort at shoulder motion. She denies any loss of motion or loss of sensation distal to the injury. General Date/Time Provider Initiated Documentation: 09/12/19 09:02 . Related Data Home Medications Medication Instructions Recorded Confirmed folic acid 1 mg PO DAILY #14 tab 08/11/18 09/12/19 multivitamin [Multiple Vitamins] 1 tab PO DAILY #0 tab 05/03/19 09/12/19 Refresh Plus 1 drp OU Q4H WHILE AWAKE #30 each 06/20/19 09/12/19 fluticasone propionate 1 spray NS DAILY #15.8 ml 06/20/19 09/12/19 ipratropium-albuterol 0.5 mg-3 3 ml IH QID PRN #90 ml 06/27/19 09/12/19 mg(2.5 mg base)/3 mL nebulization soln venlafaxine 150 mg 150 mg PO DAILY #30 cap 06/27/19 09/12/19 capsule,extended release 24 hr venlafaxine 37.5 mg 37.5 mg PO DAILY #30 cap 06/27/19 09/12/19 capsule,extended release 24 hr amlodipine 10 mg tablet 10 mg PO DAILY #90 tab 06/28/19 09/12/19 thiamine mononitrate (vit B1) 100 100 mg PO DAILY #90 tab 06/28/19 09/12/19 mg tablet magnesium oxide 400 mg PO BID #180 cap 07/17/19 09/12/19 ondansetron 4 mg PO Q6H PRN #20 tab 08/15/19 09/12/19 bisacodyl 10 mg PO .q72h prn PRN #10 tab 08/19/19 09/12/19 docusate sodium [Colace] 100 mg PO BID #60 cap 08/19/19 09/12/19 food supplemt, lactose-reduced 414 ml PO DAILY #51057 ml 08/24/19 09/12/19 pantoprazole 40 mg tablet,delayed 40 mg PO DAILY #90 tab 08/24/19 09/12/19 release gabapentin 300 mg capsule 300 mg PO BID #90 cap 08/28/19 09/12/19 hydrochlorothiazide 12.5 mg tablet 12.5 mg PO DAILY #90 tab 08/28/19 09/12/19 metoprolol tartrate 50 mg tablet 50 mg PO BID #180 tab 08/28/19 09/12/19 sennosides 8.6 mg tablet 8.6 mg PO BID #180 tab 08/28/19 09/12/19 sucralfate 1 gram tablet 1 g PO AC & HS #120 tab 08/28/19 09/12/19 Previous Rx's Medication Instructions Recorded folic acid 1 mg PO DAILY #14 tab 08/11/18 multivitamin [Multiple Vitamins] 1 tab PO DAILY #0 tab 05/03/19 Refresh Plus 1 drp OU Q4H WHILE AWAKE #30 each 06/20/19 fluticasone propionate 1 spray NS DAILY #15.8 ml 06/20/19 ipratropium-albuterol 0.5 mg-3 3 ml IH QID PRN #90 ml 06/27/19 mg(2.5 mg base)/3 mL nebulization soln venlafaxine 150 mg 150 mg PO DAILY #30 cap 06/27/19 capsule,extended release 24 hr venlafaxine 37.5 mg 37.5 mg PO DAILY #30 cap 06/27/19 capsule,extended release 24 hr amlodipine 10 mg tablet 10 mg PO DAILY #90 tab 06/28/19 thiamine mononitrate (vit B1) 100 100 mg PO DAILY #90 tab 06/28/19 mg tablet magnesium oxide 400 mg PO BID #180 cap 07/17/19 ondansetron 4 mg PO Q6H PRN #20 tab 08/15/19 bisacodyl 10 mg PO .q72h prn PRN #10 tab 08/19/19 docusate sodium [Colace] 100 mg PO BID #60 cap 08/19/19 food supplemt, lactose-reduced 414 ml PO DAILY #93717 ml 08/24/19 pantoprazole 40 mg tablet,delayed 40 mg PO DAILY #90 tab 08/24/19 release gabapentin 300 mg capsule 300 mg PO BID #90 cap 08/28/19 hydrochlorothiazide 12.5 mg tablet 12.5 mg PO DAILY #90 tab 08/28/19 metoprolol tartrate 50 mg tablet 50 mg PO BID #180 tab 08/28/19 sennosides 8.6 mg tablet 8.6 mg PO BID #180 tab 08/28/19 sucralfate 1 gram tablet 1 g PO AC & HS #120 tab 08/28/19 Allergies Allergy/AdvReac Type Severity Reaction Status Date / Time Penicillins Allergy Mild Rash Verified 09/12/19 09:04 ramipril Allergy Unknown ITCHING Verified 09/12/19 09:04 meperidine [From Demerol] AdvReac Severe Nausea Verified 09/12/19 09:04 bupropion AdvReac Mild GI upset Verified 09/12/19 09:04 AMBER Inhibitors AdvReac Unknown COUGH Verified 09/12/19 09:04 alendronate sodium AdvReac Unknown GI Distress Verified 09/12/19 09:04 clarithromycin AdvReac Unknown intolerant Verified 09/12/19 09:04 paroxetine AdvReac Unknown Diarrhea Verified 09/12/19 09:04 General Stated Complaint: Orthopedic JORDAN: 4 Review of Systems All systems reviewed & are unremarkable except as noted in HPI and below PFSH Medical History Alcohol abuse (Chronic) Alcoholic ketosis (Resolved) Allergic rhinitis (Chronic) Anemia (Chronic 12/20/16) Back pain, chronic (Chronic) CAP (community acquired pneumonia) (Resolved) Cataract (Chronic 11/07/15) Cervical radicular pain (Chronic) neck pain and [facility] Chronic alcoholic gastritis (Chronic 10/12/17) pls refrain from alcohol Corneal ulcer, right (Inactive ~08/23/18) 08/23/18; [facility] Depression (Chronic) Elev transaminase/LDH (Chronic) due to alcohol Fall (Acute) Falling (Chronic) Genital herpes simplex (Chronic) recurrent gential; suppressive Valtrex GERD (gastroesophageal reflux disease) (Chronic) GI bleed (Resolved 12/20/16) Headache (Resolved) Hyperlipidemia (Chronic) Hypertension (Chronic) high today; she will check readings at home 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 Multiple rib fractures (Resolved) 03/11/19 [facility] Non-cardiac chest pain (Resolved 09/21/16) [facility] [place] 09/21/16 NEGATIVE MP Osteoarthritis (Chronic) Osteopenia (Chronic) 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) Peripheral edema (Acute) Pleural effusion on left (Resolved) 03/11/19 [facility] Right rib fracture (Resolved) Sciatica (Chronic) right, epidural injuections [facility] Tendinitis of left rotator cuff (Inactive) Tubular adenoma of colon (Chronic 01/28/17) Urinary incontinence (Chronic) 01/24/13 urethral suspension and sling at [facility] [place] (bladder suspension 1991) Wernicke encephalopathy (Chronic) Surgical History Bladder Surgery suspension Colonoscopy - MAC (01/28/17) EGD - [facility] (12/20/16) History of bilateral ligation of fallopian tubes (Inactive) Ligation of fallopian tube Repair bladder injury, simple Family History Mother No problems noted. Father , DROWNED at age 50. No problems noted. Sister Personal history of malignant neoplasm MELANOMA Sister No problems noted. Grandfather Personal history of malignant neoplasm STOMACH Grandfather Personal history of malignant neoplasm PROSTATE Grandmother Heart disease CT Acute ill-defined cerebrovascular disease Grandmother Personal history of malignant neoplasm UTERINE Aunt , CT Heart disease CT Aunt , CT Heart disease Brother No problems noted. Social History Smoking/Tobacco Use Status: Former Tobacco Use Alcohol Intake: current Alcohol Intake frequency: 3 or more drinks per day Alcohol type: hard liquor Drug use: Never Substance use type: does not use Details: last drink at midnight Current gender identity: female Do you feel safe at home: Yes Do you feel safe in your relationship?: Yes Exam Narrative Exam Narrative: Nursing note and vital signs have been reviewed and noted. GENERAL: alert, active, no acute distress, well -hydrated, well-nourished HEENT: atraumatic/normocephalic, PERRLA, EOMI, conjunctiva clear, external ears/canals normal, nasal mucosa normal NECK: supple, full range of motion, no mass, normal lymphadenopathy, no thyromegaly CARDIOVASCULAR: RRR, no murmurs, nl pulses, no edema PULMONARY: nl effort, no audible wheezing or stridor, nl breath sounds with no focal deficit. no chest wall tenderness ABDOMEN: soft, non-tender, non-distended, no mass, no organomegaly EXTREMITY: normal muscle tone, right shoulder: Humerus palpable in the glenoid. No significant clavicular tenderness. There is soft tissue swelling lateral deltoid and distally along the humerus with associated tenderness. Normal distal neurovascular exam. SKIN: no exanthem appreciated NEURO: gross motor exam normal, normal stance and gait PSYCH: alert and oriented, Course Vital Signs Vital signs: Vital Signs Temperature 97.7 F 09/12/19 08:52 Pulse 96 H 09/12/19 08:52 Respiratory Rate 16 09/12/19 08:52 Blood Pressure 135/60 09/12/19 08:52 Pulse Oximetry 95 09/12/19 08:52 Temperature 97.7 F 09/12/19 08:52 Pulse 96 H 09/12/19 08:52 Respiratory Rate 16 09/12/19 08:52 Blood Pressure 135/60 09/12/19 08:52 Blood Pressure Position Supine 09/12/19 08:52 Pulse Oximetry 95 09/12/19 08:52 Oxygen Delivery Method Room Air 09/12/19 08:52 Oxygen Flow Rate 0 09/12/19 08:52 Pain Level 8 09/12/19 08:52
[2019-09-12] MEDS: HYDROmorphone 2 MG TAB PO (09:12)
--- NOTE | 2019-09-12 09:23 | DI.RAD_ITS ---
EXAM: XR SHOULDER RT COMPLETE 2+V INDICATION: fall with right shoulder impact and pain. COMPARISON: XR shoulder RT 1V from 05/09/2019 TECHNIQUE: 2D digital imaging was performed. FINDINGS: There is an acute fracture of the proximal humerus. The fracture appears to involve the surgical nec k and extends proximally to involve the greater tuberosity. There is mild impaction of the fracture. There does not appear to be an acute subluxation. There is an old distal right clavicular fracture . There are old right rib fractures. The soft tissues are unremarkable. IMPRESSION: Mildly impacted fracture involving the proximal right humerus.
[2019-09-12 11:00] VITALS: BP 124/78; PULSE 99; RESP 20; TEMP 36.8; O2SAT 96
== END 2019-09-12 11:04 | disposition home or self-care (01) ==
PROVIDERS: Emergency Provider Emergency Medicine; PCP Family Medicine
DX: M25.511 Pain in right shoulder (principal); S42.211A Unspecified displaced fracture of surgical neck of right humerus, initial encounter for closed fracture; W19.XXXA Unspecified fall, initial encounter; J44.9 Chronic obstructive pulmonary disease, unspecified; Z87.891 Personal history of nicotine dependence; I10 Essential (primary) hypertension
CPT/HCPCS: 23600; 73030; L3650

== ENCOUNTER 2019-09-26 12:24 | Outpatient (CLI) | payer OTHER, SELFPAY ==
--- NOTE | 2019-09-26 | DI.RAD_ITS ---
EXAM: XR SHOULDER RT COMPLETE 2+V INDICATION: f/u fracture. COMPARISON: XR CLAVICLE RT LIMITED 1V from 07/25/2019 XR ABD FLAT UPRIGHT PA CHEST from 08/15/2019 XR SHOULDER RT COMPLETE 2+V from 09/12/2019 TECHNIQUE: 2D digital imaging was performed. FINDINGS: There has been no change in alignment of the humeral head fracture. Fracture involves the greater t uberosity. There is also no change in an old distal clavicle fracture deformity. There are old righ t rib fractures.
== END 2019-09-26 12:44 ==
PROVIDERS: PCP Family Medicine; Referring Provider Family Medicine; Visit Provider Orthopaedic Surgery
DX: S42.301A Unspecified fracture of shaft of humerus, right arm, initial encounter for closed fracture (principal); W01.0XXA Fall on same level from slipping, tripping and stumbling without subsequent striking against object, initial encounter
CPT/HCPCS: 99214; 73030

== ENCOUNTER 2019-10-24 10:59 | Outpatient (CLI) | payer OTHER, SELFPAY ==
--- NOTE | 2019-10-24 10:45 | DI.RAD_ITS ---
EXAM: XR SHOULDER RT COMPLETE 2+V INDICATION: f/u. COMPARISON: XR CLAVICLE RT LIMITED 1V from 07/25/2019 XR CHEST 2V PA LATERAL from 07/26/2019 XR SHOULDER RT COMPLETE 2+V from 09/26/2019 XR SHOULDER LT COMPLETE 2+V from 10/24/2019 TECHNIQUE: 2D digital imaging was performed. FINDINGS: There has been no change in the alignment of the distal clavicle and proximal humeral fractures. Old right upper rib fractures are again noted. DATA REPOSITORY: RADIATION DOSE DELIVERED:
--- NOTE | 2019-10-24 11:00 | DI.RAD_ITS ---
EXAM: XR SHOULDER LT COMPLETE 2+V INDICATION: pain. COMPARISON: XR ABD FLAT UPRIGHT PA CHEST from 08/15/2019 TECHNIQUE: 2D digital imaging was performed. FINDINGS: There is an old nonunited distal clavicle fracture. There is prominent spurring at the undersurface of the acromion. There are irregularities seen at the greater tuberosity which appears unchanged. There is mild spurring at the glenoid. There is no joint space narrowing. There are old left rib fr actures. IMPRESSION: Old left clavicle fracture. Degenerative changes. DATA REPOSITORY: RADIATION DOSE DELIVERED:
== END 2019-10-24 11:19 ==
PROVIDERS: PCP Family Medicine; Referring Provider Family Medicine; Visit Provider Orthopaedic Surgery
DX: M25.512 Pain in left shoulder (principal); M19.012 Primary osteoarthritis, left shoulder; S42.031D Displaced fracture of lateral end of right clavicle, subsequent encounter for fracture with routine healing; S42.211D Unspecified displaced fracture of surgical neck of right humerus, subsequent encounter for fracture with routine healing; S42.301D Unspecified fracture of shaft of humerus, right arm, subsequent encounter for fracture with routine healing; X58.XXXD Exposure to other specified factors, subsequent encounter; M75.32 Calcific tendinitis of left shoulder
CPT/HCPCS: 99213; 73030

== ENCOUNTER 2019-10-30 01:12 | Inpatient (IN) | payer OTHER, SELFPAY ==
[2019-10-30] VITALS (29 sets, daily range): BP systolic 121–169; BP diastolic 72–85; PULSE 84–118; RESP 16–20; TEMP 36.2–37.5; O2SAT 93–100
--- NOTE | 2019-10-30 01:20 | ED.GENADUL_ITS ---
Discharge Plan Disposition Patient Disposition: [facility] INPATIENT Condition: Poor Discharge Details Chief Complaint: Nausea/Vomit/Diar Clinical Impression: Nausea, vomiting and diarrhea, High anion gap metabolic acidosis, Lactic acidosis Primary Care Provider: Lavelle Galindo ED Provider: Wes Dc [place] Meds and New Rx's Prescriptions: No Action meclizine 25 mg tablet 25 mg PO TID PRN (Reason: dizziness) Qty: 30 RF: 1 venlafaxine 37.5 mg capsule,extended release 24hr 37.5 mg PO DAILY Qty: 30 RF: 11 venlafaxine 150 mg capsule,extended release 24hr 150 mg PO DAILY Qty: 30 RF: 11 ipratropium-albuterol 0.5 mg-3 mg(2.5 mg base)/3 mL solution for nebulization 3 ml IH QID PRN (Reason: shortness of breath) Qty: 90 RF: 3 hydrochlorothiazide 12.5 mg tablet 12.5 mg PO DAILY Qty: 90 RF: 3 gabapentin 300 mg capsule 300 mg PO BID Qty: 90 RF: 5 metoprolol tartrate 50 mg tablet 50 mg PO BID Qty: 180 RF: 3 sennosides [Senokot] 8.6 mg tablet 8.6 mg PO BID Qty: 180 RF: 3 sucralfate 1 gram tablet 1 g PO AC & HS Qty: 120 RF: 5 magnesium oxide 400 mg magnesium capsule 400 mg PO BID Qty: 180 RF: 3 amlodipine 10 mg tablet 10 mg PO DAILY Qty: 90 RF: 3 thiamine mononitrate (vit B1) [Vitamin B-1 (mononitrate)] 100 mg tablet 100 mg PO DAILY Qty: 90 RF: 3 pantoprazole 40 mg tablet,delayed release (DR/EC) 40 mg PO DAILY Qty: 90 RF: 3 Ensure Active High Protein Liquid 414 ml PO DAILY Qty: 22647 RF: 11 multivitamin [Multiple Vitamins] Tablet 1 tab PO DAILY Qty: 90 RF: 3 potassium chloride [Klor-Con M10] 10 mEq tablet,ER particles/crystals 10 meq PO DAILY Qty: 90 RF: 3 folic acid 1 mg Tablet 1 mg PO DAILY Qty: 14 RF: 0 multivitamin [Multiple Vitamins] Tablet 1 tab PO DAILY Qty: 0 RF: 0 Refresh Plus 0.5 % Dropperette 1 drp OU Q4H WHILE AWAKE Qty: 30 RF: 0 fluticasone propionate 50 mcg/actuation [place],Suspension 1 spray NS DAILY Qty: 15.8 RF: 0 ondansetron 4 mg tablet,disintegrating 4 mg PO Q6H PRN (Reason: nausea and vomiting) Qty: 20 RF: 0 docusate sodium [Colace] 100 mg Capsule 100 mg PO BID Qty: 60 RF: 0 bisacodyl 5 mg Tablet,Delayed Release (Dr/Ec) 10 mg PO .q72h prn PRN (Reason: constipation - if no BM In 3 days) Qty: 10 RF: 0 Medical Decision Making Patient presenting with complaint of vomiting and diarrhea. Reporting that di arrhea is the reason she is here. She is afebrile. She is not tachycardic. She has a benign abdomen. She has previous visits here for similar complaints. Typically presents tachycardic but patient reports taking her medications on a regular basis at this point except for today because of the vomiting. Will place IV and get laboratory studies as well as give Zofran and LR. Patient's laboratory studies show a normal white count. She has an anemia which is baseline. She has significant anion gap at 25 with a lactic acid of 8 and a bicarb of 19. Kidney function is okay. Glucose is okay. Alcohol level 81. Because of the complaint of diarrhea with abdominal pain and associated anion gap/lactic acidosis CT scan of the abdomen was ordered. This reveals generalized thickening of the colon consistent with colitis. No evidence of abscess, that, obstruction. Patient continuing on LR, on her second liter at 200 an hour. Case discussed with hospitalist for admission. Will order C. difficile screen but will hold off on treating for the time being. We will continue with IV fluids and antiemetics. Medical Records Medical records reviewed: Yes I reviewed the patient's medical records. Lab Data Lab results reviewed: Yes I reviewed the patient's lab results. HPI General Mode of arrival: EMS . Date/Time Provider Initiated Documentation: 10/30/19 01:18 . Limitations to Documentation: no limitations . Information obtained by: patient, RN notes reviewed and old records reviewed . HPI Narrative: Patient presents to ED with complaint of nausea, vomiting and diarrhea. She reports symptoms starting 3 days ago. She tells me that it is mostly diarrhea that is bothering her and why she came in. She does state that she is unable to take her medications today because of nausea and vomiting. She complains of some upper abdominal pain which for her is chronic. She denies fever. She denies chest pain or shortness of breath. She is unable to quantify the amount of diarrhea. Does not know if it is been bloody or not. There has been no travel. Related Data Home Medications Medication Instructions Recorded Confirmed folic acid 1 mg PO DAILY #14 tab 08/11/18 10/30/19 multivitamin [Multiple Vitamins] 1 tab PO DAILY #0 tab 05/03/19 10/30/19 Refresh Plus 1 drp OU Q4H WHILE AWAKE #30 each 06/20/19 10/30/19 fluticasone propionate 1 spray NS DAILY #15.8 ml 06/20/19 10/30/19 ipratropium 0.5 mg-albuterol 3 mg 3 ml IH QID PRN #90 ml 06/27/19 10/30/19 (2.5 mg base)/3 mL nebulization soln venlafaxine 150 mg 150 mg PO DAILY #30 cap 06/27/19 10/30/19 capsule,extended release 24 hr venlafaxine 37.5 mg 37.5 mg PO DAILY #30 cap 06/27/19 10/30/19 capsule,extended release 24 hr amlodipine 10 mg tablet 10 mg PO DAILY #90 tab 06/28/19 10/30/19 thiamine mononitrate (vit B1) 100 100 mg PO DAILY #90 tab 06/28/19 10/30/19 mg tablet magnesium oxide 400 mg PO BID #180 cap 07/17/19 10/30/19 ondansetron 4 mg PO Q6H PRN #20 tab 08/15/19 10/30/19 bisacodyl 10 mg PO .q72h prn PRN #10 tab 08/19/19 10/30/19 docusate sodium [Colace] 100 mg PO BID #60 cap 08/19/19 10/30/19 food supplemt, lactose-reduced 414 ml PO DAILY #78892 ml 08/24/19 10/30/19 pantoprazole 40 mg tablet,delayed 40 mg PO DAILY #90 tab 08/24/19 10/30/19 release gabapentin 300 mg capsule 300 mg PO BID #90 cap 08/28/19 10/30/19 hydrochlorothiazide 12.5 mg tablet 12.5 mg PO DAILY #90 tab 08/28/19 10/30/19 metoprolol tartrate 50 mg tablet 50 mg PO BID #180 tab 08/28/19 10/30/19 sennosides 8.6 mg tablet 8.6 mg PO BID #180 tab 08/28/19 10/30/19 sucralfate 1 gram tablet 1 g PO AC & HS #120 tab 08/28/19 10/30/19 meclizine 25 mg tablet 25 mg PO TID PRN #30 tab 09/14/19 10/30/19 multivitamin 1 tab PO DAILY #90 tab 09/14/19 10/30/19 potassium chloride 10 mEq 10 meq PO DAILY #90 tab 09/14/19 10/30/19 tablet,extended release(part/cryst) Previous Rx's Medication Instructions Recorded folic acid 1 mg PO DAILY #14 tab 08/11/18 multivitamin [Multiple Vitamins] 1 tab PO DAILY #0 tab 05/03/19 Refresh Plus 1 drp OU Q4H WHILE AWAKE #30 each 06/20/19 fluticasone propionate 1 spray NS DAILY #15.8 ml 06/20/19 ipratropium 0.5 mg-albuterol 3 mg 3 ml IH QID PRN #90 ml 06/27/19 (2.5 mg base)/3 mL nebulization soln venlafaxine 150 mg 150 mg PO DAILY #30 cap 06/27/19 capsule,extended release 24 hr venlafaxine 37.5 mg 37.5 mg PO DAILY #30 cap 06/27/19 capsule,extended release 24 hr amlodipine 10 mg tablet 10 mg PO DAILY #90 tab 06/28/19 thiamine mononitrate (vit B1) 100 100 mg PO DAILY #90 tab 06/28/19 mg tablet magnesium oxide 400 mg PO BID #180 cap 07/17/19 ondansetron 4 mg PO Q6H PRN #20 tab 08/15/19 bisacodyl 10 mg PO .q72h prn PRN #10 tab 08/19/19 docusate sodium [Colace] 100 mg PO BID #60 cap 08/19/19 food supplemt, lactose-reduced 414 ml PO DAILY #40538 ml 08/24/19 pantoprazole 40 mg tablet,delayed 40 mg PO DAILY #90 tab 08/24/19 release gabapentin 300 mg capsule 300 mg PO BID #90 cap 08/28/19 hydrochlorothiazide 12.5 mg tablet 12.5 mg PO DAILY #90 tab 08/28/19 metoprolol tartrate 50 mg tablet 50 mg PO BID #180 tab 08/28/19 sennosides 8.6 mg tablet 8.6 mg PO BID #180 tab 08/28/19 sucralfate 1 gram tablet 1 g PO AC & HS #120 tab 08/28/19 meclizine 25 mg tablet 25 mg PO TID PRN #30 tab 09/14/19 multivitamin 1 tab PO DAILY #90 tab 09/14/19 potassium chloride 10 mEq 10 meq PO DAILY #90 tab 09/14/19 tablet,extended release(part/cryst) Allergies Allergy/AdvReac Type Severity Reaction Status Date / Time Penicillins Allergy Mild Rash Verified 10/30/19 01:22 ramipril Allergy Unknown ITCHING Verified 10/30/19 01:22 meperidine [From Demerol] AdvReac Severe Nausea Verified 10/30/19 01:22 bupropion AdvReac Mild GI upset Verified 10/30/19 01:22 AMBER Inhibitors AdvReac Unknown COUGH Verified 10/30/19 01:22 alendronate sodium AdvReac Unknown GI Distress Verified 10/30/19 01:22 clarithromycin AdvReac Unknown intolerant Verified 10/30/19 01:22 paroxetine AdvReac Unknown Diarrhea Verified 10/30/19 01:22 General Stated Complaint: Nausea/Vomit/Diar JORDAN: 3 Review of Systems Narrative: As documented in HPI otherwise negative as below. Const: weakness; no fever, chills Resp: no cough, SOB, pleuritic pain CV: no CP, diaphoresis, edema, syncope GI: abdominal pain, nausea, vomiting, diarrhea Neuro: no headache, numbness, focal weakness, confusion [facility] Medical History Alcohol abuse (Chronic) Alcoholic ketosis (Resolved) Allergic rhinitis (Chronic) Anemia (Chronic 12/20/16) Back pain, chronic (Chronic) CAP (community acquired pneumonia) (Resolved) Cataract (Chronic 11/07/15) Cervical radicular pain (Chronic) neck pain and [facility] Chronic alcoholic gastritis (Chronic 10/12/17) pls refrain from alcohol Corneal ulcer, right (Inactive ~08/23/18) 08/23/18; UV-kb Depression (Chronic) Elev transaminase/LDH (Chronic) due to alcohol Fall (Acute) Falling (Chronic) Genital herpes simplex (Chronic) recurrent gential; suppressive Valtrex GERD (gastroesophageal reflux disease) (Chronic) GI bleed (Resolved 12/20/16) Headache (Resolved) Hyperlipidemia (Chronic) Hypertension (Chronic) high today; she will check readings at home 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 Multiple rib fractures (Resolved) 03/11/19 [facility] Non-cardiac chest pain (Resolved 09/21/16[place] [facility] [place] Osteoarthritis (Chronic) Osteopenia (Chronic) 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) Peripheral edema (Acute) Pleural effusion on left (Resolved) 03/11/19 [facility] Right rib fracture (Resolved) Sciatica (Chronic) right, epidural injuections [facility] Tendinitis of left rotator cuff (Inactive) Tubular adenoma of colon (Chronic 01/28/17) Urinary incontinence (Chronic) 01/24/13 urethral [place] [facility] [place] Wernicke encephalopathy (Chronic) Surgical History Bladder Surgery suspension Colonoscopy - MAC (01/28/17) EGD - MAC (12/20/16) History of bilateral ligation of fallopian tubes (Inactive) Ligation of fallopian tube Repair bladder injury, simple Social History Smoking/Tobacco Use Status: Former Tobacco Use Alcohol Intake: current Alcohol Intake frequency: 3 or more drinks per day Alcohol type: hard liquor Drug use: Never Substance use type: does not use Details: last drink at midnight Current gender identity: female Do you feel safe at home: Yes Do you feel safe in your relationship?: Yes Additional Social history: Exam Narrative Exam Narrative: Vitals: Afebrile. Elevated blood pressure but normal heart rate and room air pulse oximetry. Const: Elderly female in NAD. HEENT: NC/AT. Normal facial exam. Eyes: Right eye patched. Neck: Supple. Trachea midline. Lungs: Normal respiratory effort. Lungs are clear. Cor: RRR without murmur/gallop. Good distal pulses. GI: Soft. NT/ND. No guarding or rebound. Neuro: A+O x 3. Normal speech, mentation. Cranial nerves II - XII grossly intact. No gross motor or sensory deficit. Ext: No C/C/E. Skin: Warm and dry without rash. Course Vital Signs Vital signs: Vital Signs Temperature 99.1 F 10/30/19 01:17 Pulse 86 10/30/19 01:17 Respiratory Rate 16 10/30/19 01:17 Blood Pressure 163/73 H 10/30/19 01:17 Pulse Oximetry 96 10/30/19 01:17 Temperature 99.1 F 10/30/19 01:17 Temperature Source Skin 10/30/19 01:17 Pulse 86 10/30/19 01:17 Respiratory Rate 16 10/30/19 01:17 Respiratory Effort 10/30/19 01:17 Blood Pressure 163/73 H 10/30/19 01:17 Pulse Oximetry 96 10/30/19 01:17 Oxygen Delivery Method Room Air 10/30/19 01:17 Oxygen Flow Rate 0 10/30/19 01:17 Pain Level 7 10/30/19 01:17
[2019-10-30] MEDS: Lactated Ringers 1,000 ML 200 ML IV ×4 (01:41→19:21)
[2019-10-30] MEDS: Ondansetron 4 MG/2 ML VIAL IVP (01:44)
[2019-10-30 01:54] LABS: Absolute Basophil Count 0.02 k/cumm (0.0-0.2); Absolute Eosinophil Count 0.01 k/cumm (0.0-0.7); Absolute Lymphocyte Count 0.48 k/cumm (1.2-3.4); Absolute Monocyte Count 0.18 k/cumm (0.11-0.7); Absolute Neutrophil Count 5.15 k/cumm (1.2-6.7); Basophils % 0.3; Eosinophils % 0.2; HCT 34.5 % (36.0-46.0); HGB 10.9 g/dL (12.0-15.5); Lymphocytes % 8.2; Mean Corp. HGB Concentration 31.6 g/dL (32.0-36.0); Mean Corpuscular Volume 85.4 fL (80-95); Mean Platelet Volume 9.1 fL (8.0-11.0); Monocytes % 3.1; Neutrophils % 88.2; Platelet Count 250 x1000/uL (130-400); RBC 4.04 m/cumm (4.00-5.20); RBC Distribution Width 19.8 % (11.7-14.6); White Blood Cell Count 5.84 k/cumm (4.4-10.8)
[2019-10-30 02:01] LABS: Lactate 8.2 mmol/L (0.6-1.4)
--- NOTE | 2019-10-30 02:05 | NUR.NOTE ---
Nursing Note: Fluids infusing at 999 ml/hr per Dr Dc orders
[2019-10-30 02:06] LABS: ETHANOL BLOOD 81.4 mg/dL (<3); Lipase 57 U/L (73-393)
[2019-10-30 02:09] LABS: ALT 34 U/L (14-59); AST 45 U/L (15-37); Albumin 3.9 g/dL (3.4-5.0); Alkaline Phosphatase 132 U/L (46-116); Anion Gap 24.7 mmol/L (3-11); BUN 18 mg/dL (7-18); Bilirubin, Total 1.1 mg/dL (0.2-1.0); CO2 19.3 mmol/L (21.0-32.0); CREATININE 1.16 mg/dL (0.55-1.02); Calcium 10.1 mg/dL (8.5-10.1); Chloride 97 mmol/L (98-107); Estimated GFR 45.79 (mL/min/1.73m2); Glucose 149 mg/dL (74-106); Magnesium 1.8 mg/dL (1.8-2.4); Potassium 3.4 mmol/L (3.5-5.1); Sodium 141 mmol/L (136-145); Total Protein 7.6 g/dL (6.4-8.2)
[2019-10-30] MEDS: Omnipaque 350 MG/ML 100 ML BTL IJ (02:26)
[2019-10-30] MEDS: Normal Saline - Diluent 50 ML VIAL IV (03:02)
--- NOTE | 2019-10-30 03:15 | DI.CT_ITS ---
EXAM: CT ABDOMEN PELVIS W CLINICAL HISTORY: diarrhea, abdominal pain, elevated lactate TECHNIQUE: Post IV contrast. Without oral contrast. COMPARISON: CT CHEST/ABD/PEL W from 07/22/2019 FINDINGS: There are old bilateral rib fractures. The heart size is normal. Mild atelectasis or scarring is s een at the lung bases. The liver shows diffuse fatty infiltration. There is a small hiatal hernia. The gallbladder, spleen, pancreas and adrenals are unremarkable. There are several bilateral renal cysts. There is mild to moderate aortic calcification. The aorta is normal in diameter. The bladde r, ovaries and uterus are unremarkable. There are small bilateral fatty containing inguinal hernias. Colon is mainly collapsed. There is some wall thickening which appears diffuse, greater at the asce nding colon. Pre sacral soft tissue mass is seen, not significantly changed. There is no ascites. N o adenopathy is seen. Degenerative changes are again noted in the spine. IMPRESSION: Mild diffuse colonic wall thickening, consistent with colitis. No evidence of bowel obstruction. St able presacral mass.
--- NOTE | 2019-10-30 03:19 | DI.VRAD_ITS ---
PROCEDURE INFORMATION: Exam: CT Abdomen And Pelvis With Contrast Exam date and time: 10/30/2019 2:04 AM Age: 74 years old Clinical indication: Nausea and vomiting and other: Diarrhea; Prior surgery; Surgery date: 6+ months; Surgery type: Bladder suspension, tubal ligation; Patient HX: Diarrhea, abdominal pain, elevated lactate; Additional info: HX of chronic alcoholic gastritis TECHNIQUE: Imaging protocol: Computed tomography of the abdomen and pelvis with intravenous contrast. Radiation optimization: All CT scans at this facility use at least one of these dose optimization techniques: automated exposure control; mA and/or kV adjustment per patient size (includes targeted exams where dose is matched to clinical indication); or iterative reconstruction. Contrast material: OMNIPAQUE 350; Contrast volume: 97 ml; Contrast route: IV; COMPARISON: CT CHEST/ABD/PEL W 07/22/2019 3:14 PM FINDINGS: Liver: Hepatic steatosis is present. Gallbladder and bile ducts: Normal. No calcified stones. No ductal dilation. Pancreas: Normal. No ductal dilation. Spleen: Normal. No splenomegaly. Adrenals: Normal. No mass. Kidneys and ureters: Bilateral simple renal measure up to 3.1 cm on the right Stomach and bowel: Colonic wall thickening compatible with a nonspecific colitis, either infectious or inflammatory. Appendix: No evidence of appendicitis. Intraperitoneal space: Unremarkable. No free air. No significant fluid collection. Vasculature: Unremarkable. No abdominal aortic aneurysm. Lymph nodes: Unremarkable. No enlarged lymph nodes. Bladder: Unremarkable as visualized. Reproductive: Unremarkable as visualized. Bones/joints: Unremarkable. No acute fracture. Soft tissues: Unremarkable. IMPRESSION: Colonic wall thickening compatible with a nonspecific colitis, either infectious or inflammatory. Dictated and Authenticated by: Franki Lyle MD. Ordering:EVE Harvey MD
--- NOTE | 2019-10-30 03:39 | NUR.NOTE ---
Nursing Note: Pt incontinent of urine. Evelyne care and clean linens provided. No stools since arrival to ER.
--- NOTE | 2019-10-30 04:07 | W.PM.HP.N ---
Date of service: 10/30/19 Time of Service: 04:07 Assessment and Plan Assessment and plan (1) Enteritis: Status: Acute Assessment and plan: Enteritis, no specific diagnosis at this point. Could be gastritis for which she has been frequently admitted; possibly non-specific gastroenteritis; possible colitis (perhaps C diff). Would continue IVF, anti-emetics and PPI along with bowel rest. Will await testing for C diff, hold on any empiric treatment in this regard. Lactic acidosis noted, no signs of hypoperfusion. may be related to alcohol. Will trend out. Will place on [facility] History of Present Illness History of Present Illness Chief Complaint: nausea and vomiting and diarrhea Narrative: 74 female with multiple problems, including alcoholism, continues to drink, frequesnt admissions for alcoholic gastritis -- comes in with tthree days of diarrhea (loos up to 6 times per day) along with nausea and vomiting in past day. Some epigastric discomfort. Diarrhea seems to have settled down today. In ER findings of note for lack of hypotension, normal white count (5.8), and CT showing some colonic wall thickening c/w colitis. Note that patient reports course of antibiotics some three weeks ago for ear infection. Lactate of 8.4 also noted along with HCO3 of 19 and AG of 25. Alcohol level 83. Patient received IVF and Zofran. Has not had any stool output here. Admitted for further management. Review of Systems All systems reviewed & are unremarkable except as noted in HPI and below PFSH Medical History Alcohol abuse (Chronic) Alcoholic ketosis (Resolved) Allergic rhinitis (Chronic) Anemia (Chronic 12/20/16) Back pain, chronic (Chronic) CAP (community acquired pneumonia) (Resolved) Cataract (Chronic 11/07/15) Cervical radicular pain (Chronic) neck pain and [facility] Chronic alcoholic gastritis (Chronic 10/12/17) pls refrain from alcohol Corneal ulcer, right (Inactive ~08/23/18) 08/23/18; [facility] Depression (Chronic) Elev transaminase/LDH (Chronic) due to alcohol Fall (Acute) Falling (Chronic) Genital herpes simplex (Chronic) recurrent gential; suppressive Valtrex GERD (gastroesophageal reflux disease) (Chronic) GI bleed (Resolved 12/20/16) Headache (Resolved) Hyperlipidemia (Chronic) Hypertension (Chronic) high today; she will check readings at home 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 Multiple rib fractures (Resolved) 03/11/19 [facility] Non-cardiac chest pain (Resolved 09/21/16[place] [facility] [place] Osteoarthritis (Chronic) Osteopenia (Chronic) 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) Peripheral edema (Acute) Pleural effusion on left (Resolved) 03/11/19 [facility] Right rib fracture (Resolved) Sciatica (Chronic) right, epidural injuections [facility] Tendinitis of left rotator cuff (Inactive) Tubular adenoma of colon (Chronic 01/28/17) Urinary incontinence (Chronic) 01/24/13 [place]ral suspension [place] [facility] [place]) Wernicke encephalopathy (Chronic) Surgical History Bladder Surgery suspension Colonoscopy - MAC (01/28/17) EGD - MAC (12/20/16) History of bilateral ligation of fallopian tubes (Inactive) Ligation of fallopian tube Repair bladder injury, simple Family History Mother No problems noted. Father , DROWNED at age 50. No problems noted. Sister Personal history of malignant neoplasm MELANOMA Sister No problems noted. Grandfather Personal history of malignant neoplasm STOMACH Grandfather Personal history of malignant neoplasm PROSTATE Grandmother Heart disease [place] Acute ill-defined cerebrovascular disease Grandmother Personal history of malignant neoplasm UTERINE Aunt , [place] Heart disease [place] Aunt , [place] Heart disease Brother No problems noted. Social History Smoking/Tobacco Use Status: Former Tobacco Use Alcohol Intake: current Alcohol Intake frequency: 3 or more drinks per day Alcohol type: hard liquor Drug use: Never Substance use type: does not use Details: last drink at midnight Current gender identity: female Do you feel safe at home: Yes Do you feel safe in your relationship?: Yes Additional Social history: Meds Home Medications and Allergies Home Medications Medication Instructions Recorded Confirmed Type folic acid 1 mg PO DAILY #14 tab 08/11/18 10/30/19 Rx multivitamin [Multiple Vitamins] 1 tab PO DAILY #0 tab 05/03/19 10/30/19 Rx Refresh Plus 1 drp OU Q4H WHILE AWAKE #30 each 06/20/19 10/30/19 Rx fluticasone propionate 1 spray NS DAILY #15.8 ml 06/20/19 10/30/19 Rx ipratropium 0.5 mg-albuterol 3 mg 3 ml IH QID PRN #90 ml 06/27/19 10/30/19 Rx (2.5 mg base)/3 mL nebulization soln venlafaxine 150 mg 150 mg PO DAILY #30 cap 06/27/19 10/30/19 Rx capsule,extended release 24 hr venlafaxine 37.5 mg 37.5 mg PO DAILY #30 cap 06/27/19 10/30/19 Rx capsule,extended release 24 hr amlodipine 10 mg tablet 10 mg PO DAILY #90 tab 06/28/19 10/30/19 Rx thiamine mononitrate (vit B1) 100 100 mg PO DAILY #90 tab 06/28/19 10/30/19 Rx mg tablet magnesium oxide 400 mg PO BID #180 cap 07/17/19 10/30/19 Rx ondansetron 4 mg PO Q6H PRN #20 tab 08/15/19 10/30/19 Rx bisacodyl 10 mg PO .q72h prn PRN #10 tab 08/19/19 10/30/19 Rx docusate sodium [Colace] 100 mg PO BID #60 cap 08/19/19 10/30/19 Rx food supplemt, lactose-reduced 414 ml PO DAILY #67198 ml 08/24/19 10/30/19 Rx pantoprazole 40 mg tablet,delayed 40 mg PO DAILY #90 tab 08/24/19 10/30/19 Rx release gabapentin 300 mg capsule 300 mg PO BID #90 cap 08/28/19 10/30/19 Rx hydrochlorothiazide 12.5 mg tablet 12.5 mg PO DAILY #90 tab 08/28/19 10/30/19 Rx metoprolol tartrate 50 mg tablet 50 mg PO BID #180 tab 08/28/19 10/30/19 Rx sennosides 8.6 mg tablet 8.6 mg PO BID #180 tab 08/28/19 10/30/19 Rx sucralfate 1 gram tablet 1 g PO AC & HS #120 tab 08/28/19 10/30/19 Rx meclizine 25 mg tablet 25 mg PO TID PRN #30 tab 09/14/19 10/30/19 Rx multivitamin 1 tab PO DAILY #90 tab 09/14/19 10/30/19 Rx potassium chloride 10 mEq 10 meq PO DAILY #90 tab 09/14/19 10/30/19 Rx tablet,extended release(part/cryst) Allergies Allergy/AdvReac Type Severity Reaction Status Date / Time Penicillins Allergy Mild Rash Verified 10/30/19 01:22 ramipril Allergy Unknown ITCHING Verified 10/30/19 01:22 meperidine [From Demerol] AdvReac Severe Nausea Verified 10/30/19 01:22 bupropion AdvReac Mild GI upset Verified 10/30/19 01:22 AMBER Inhibitors AdvReac Unknown COUGH Verified 10/30/19 01:22 alendronate sodium AdvReac Unknown GI Distress Verified 10/30/19 01:22 clarithromycin AdvReac Unknown intolerant Verified 10/30/19 01:22 paroxetine AdvReac Unknown Diarrhea Verified 10/30/19 01:22 Exam Narrative Exam Narrative: 158/81, 105, 37.3, 16. 98%. HEENT atraumatic; neck supple; lungs clear; heart tachy/regular; abdomen +BS, soft and NT; rectal deferred; extremities w/o edema; neuro non-focal. Results Labs Result diagrams: 10/30/19 01:40 10/30/19 01:40 Labs: Laboratory Results - last 24 hr 10/30/19 10/30/19 10/30/19 01:40 01:40 01:40 WBC 5.84 RBC 4.04 Hgb 10.9 L Hct 34.5 L MCV 85.4 MCH 27.0 MCHC 31.6 L RDW 19.8 H Plt Count 250 MPV 9.1 Immature Gran % 0.0 Neutrophils % 88.2 Lymphocytes % 8.2 Monocytes % 3.1 Eosinophils % 0.2 Basophils % 0.3 Absolute Neutrophils 5.15 Absolute Lymphocytes 0.48 L Absolute Monocytes 0.18 Absolute Eosinophils 0.01 Absolute Basophils 0.02 Sodium 141 Potassium 3.4 L Chloride 97 L Carbon Dioxide 19.3 L Anion Gap 24.7 H BUN 18 Creatinine 1.16 H Estimated GFR/1.73 m2 45.79 Glucose 149 H Lactate 8.2 H* Calcium 10.1 Magnesium 1.8 Total Bilirubin 1.1 H AST 45 H ALT 34 Alkaline Phosphatase 132 H Total Protein 7.6 Albumin 3.9 Lipase Ethyl Alcohol 10/30/19 01:40 WBC RBC Hgb Hct MCV MCH MCHC RDW Plt Count MPV Immature Gran % Neutrophils % Lymphocytes % Monocytes % Eosinophils % Basophils % Absolute Neutrophils Absolute Lymphocytes Absolute Monocytes Absolute Eosinophils Absolute Basophils Sodium Potassium Chloride Carbon Dioxide Anion Gap BUN Creatinine Estimated GFR/1.73 m2 Glucose Lactate Calcium Magnesium Total Bilirubin AST ALT Alkaline Phosphatase Total Protein Albumin Lipase 57 Ethyl Alcohol 81.4 Last Vital Signs Temp 37.3 C 10/30/19 01:17 Pulse 105 H 10/30/19 03:31 Resp 16 10/30/19 01:45 BP 158/81 H 10/30/19 03:31 Pulse Ox 98 10/30/19 03:31
[2019-10-30] MEDS: Normal Saline Flush 10 ML SYR IVP (06:34)
[2019-10-30] MEDS: Lactated Ringers 1,000 ML 1000 ML IV (06:34)
[2019-10-30] MEDS: Pantoprazole 40 MG VIAL IVP (06:35)
[2019-10-30] MEDS: LORazepam 1 MG TAB PO/SL ×3 (06:46→15:51)
[2019-10-30 07:03] LABS: Lactate 4.3 mmol/L (0.6-1.4)
[2019-10-30 07:51] LABS: Anion Gap 22.2 mmol/L (3-11); BUN 17 mg/dL (7-18); CO2 20.8 mmol/L (21.0-32.0); CREATININE 1.09 mg/dL (0.55-1.02); Calcium 9.9 mg/dL (8.5-10.1); Chloride 97 mmol/L (98-107); Glucose 190 mg/dL (74-106); Potassium 3.1 mmol/L (3.5-5.1); Sodium 140 mmol/L (136-145)
[2019-10-30] MEDS: MAGNESIUM SULFATE 8.12 MEQ, MULTIVITAMIN 10 ML, THIAMINE 100 MG, FOLIC ACID 1 MG in Nor... 168.867 MG IV (09:10)
[2019-10-30] MEDS: Gabapentin 300 MG CAP PO ×2 (09:21→20:06)
[2019-10-30] MEDS: Venlafaxine 37.5 MG CAPCR PO (09:21)
[2019-10-30] MEDS: Sucralfate 1 GM TAB PO ×3 (09:22→22:05)
[2019-10-30] MEDS: Multivitamin TAB 1 TAB PO (09:22)
[2019-10-30] MEDS: Folic Acid 1 MG TAB PO (09:22)
[2019-10-30] MEDS: Metoprolol 50 MG TAB PO ×2 (09:22→20:06)
[2019-10-30] MEDS: Venlafaxine 150 MG CAPCR PO (09:22)
[2019-10-30] MEDS: Thiamine 100 MG TAB PO (09:23)
[2019-10-30] MEDS: amLODIPine 10 MG TAB PO (09:23)
--- NOTE | 2019-10-30 10:32 | INITIAL_ITS ---
- If Service Date Differs Date of service: 10/30/19 Time of Service: 10:32 Care Management Initial Assess REASON FOR HOSPITALIZATION:: Enteritis PAST MEDICAL HISTORY/PAST SURGICAL HISTORY:: Medical History . Alcohol abuse (Chronic). Alcoholic ketosis (Resolved). Allergic rhinitis (Chronic). Anemia (Chronic 12/20/16). Back pain, chronic (Chronic). CAP (community acquired pneumonia) (Resolved). Cataract (Chronic 11/07/15). Cervical radicular pain (Chronic). neck pain and DJD. [facility]. Chronic alcoholic gastritis (Chronic 10/12/17). pls refrain from alcohol. Corneal ulcer, right (Inactive ~08/23/18). 08/23/18; UV-kb. Depression (Chronic). Elev transaminase/LDH (Chronic). due to alcohol. Fall (Acute). Falling (Chronic). Genital herpes simplex (Chronic). recurrent gential; suppressive Valtrex. GERD (gastroesophageal reflux disease) (Chronic). GI bleed (Resolved 12/20/16). Headache (Resolved). Hyperlipidemia (Chronic). Hypertension (Chronic). high today; she will check readings at home. Macrocytosis (Chronic 09/26/14). due to alcohol. Multiple rib fractures (Resolved). 03/11/19 [facility]. Non-cardiac chest pain (Resolved 09/21/16). [facility] [place] 09/21/16 NEGATIVE MP. Osteoarthritis (Chronic). Osteopenia (Chronic). 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). Peripheral edema (Acute). Pleural effusion on left (Resolved). 03/11/19 [facility]. Right rib fracture (Resolved). Sciatica (Chronic). right, epidural injuections. [facility]. Tendinitis of left rotator cuff (Inactive). Tubular adenoma of colon (Chronic 01/28/17). Urinary incontinence (Chronic). 01/24/13 urethral suspension and sling at [facility] [place]. (bladder suspension 1991). Wernicke encephalopathy (Chronic). Surgical History . Bladder Surgery. suspension. Colonoscopy - MAC (01/28/17). EGD - MAC (12/20/16). History of bilateral ligation of fallopian tubes (Inactive). Ligation of fallopian tube. Repair bladder injury, simple PREVIOUS FUNCTIONAL STATUS/SOCIAL/FAMILY SUPPORTS:: Leticia lives alone in [place]. She has a private caregiver who assists her with medication management and housekeeping. Leticia is otherwise independent with ADLs. She states she no longer drives and takes RCT to appointments. CURRENT FUNCTIONAL STATUS:: Leticia was sitting up in a chair when CM met with her. She appeared somnolent and would not answer any questions verbally. She did nod assent to a couple of questions about services. Leticia is tachycardic and a bit hypertensive, but remains afebrile. ADVANCE DIRECTIVES:: DNR/COLST on file dwayne Avery is agent Has patient been provided with information about the portal?: Yes Did the patient sign up for the portal?: Yes (previously) CODE STATUS:: DNR/DNI INSURANCE COVERAGE / FINANCIAL ISSUES:: [facility] PPO CURRENT HOME/COMMUNITY SERVICES/EQUIPMENT:: private caregiver, MOW, FWW. RN and OT PRIMARY CARE PHYSICIAN:: Lavelle Galindo POTENTIAL DISCHARGE NEEDS:: Follow up with PCP and discharge plan of care PATIENT/FAMILY EDUCATION NEEDS:: Discharge plan, limitations, follow up plan, Ask Me Three TRANSPORTATION:: via RCT coordinated by CM PLAN:: Leticia will likely return home with a resumption of services. She has a private caregiver, MOW and nursing and OT. She will follow up with her PCP and discharge plan of care and transport via RCT. CM will continue to follow and support Leticia and her discharge planning needs.
[2019-10-30 11:16] LABS: Lactate 2.2 mmol/L (0.6-1.4)
[2019-10-30] MEDS: POTASSIUM CHLORIDE 20 MEQ/100 ML BAG 50 MEQ IVPB ×2 (11:17→13:46)
--- NOTE | 2019-10-30 14:53 | PHA.ADMREV ---
Pharmacy Clinical Review - Admission Clinical Review (Last Reviewed 10/30/19 @ 04:14 by Saeed Cosme MD) Enteritis (Acute) Nausea, vomiting and diarrhea (Acute) High anion gap metabolic acidosis (Acute) Lactic acidosis (Acute) Penicillins Allergy (Mild, Verified 10/30/19 01:22) Rash ramipril Allergy (Unknown, Verified 10/30/19 01:22) ITCHING meperidine [From Demerol] Adverse Reaction (Severe, Verified 10/30/19:22) Nausea bupropion Adverse Reaction (Mild, Verified 10/30/19:22) GI upset AMBER Inhibitors Adverse Reaction (Unknown, Verified 10/30/19:22) COUGH alendronate sodium Adverse Reaction (Unknown, Verified 10/30/19:) GI Distress clarithromycin Adverse Reaction (Unknown, Verified 10/30/19:22) intolerant paroxetine Adverse Reaction (Unknown, Verified 10/30/19:22) Diarrhea Height 5 ft 1 in Weight 65.1 kg - Renal Dosing Renal Dosing: BUN 17 mg/dL (7-18) 10/30/19 06:30 Creatinine 1.09 mg/dL (0.55-1.02) H 10/30/19 06:30 Medications needing adjustments: Reviewed (Est CrCl~ 34.6 mL/min) - Anticoagulation Anticoagulation: Hgb 10.9 g/dL (12.0-15.5) L 10/30/19 01:40 Hct 34.5 % (36.0-46.0) L 10/30/19 01:40 Plt Count 250 x1000/uL (130-400) 10/30/19 01:40 Creatinine 1.09 mg/dL (0.55-1.02) H 10/30/19 06:30 DVT Prohphylaxis: Intervened (No DVT proph, will speak to hospitalist) Therapeutic Anticoagulation: N/A - Opiate Usage Evaluate Pain Scale/Pains Meds: N/A Scheduled Bowel Reg ordered if on Opiates?: No - Relevant Labs Sodium 140 mmol/L (136-145) 10/30/19 06:30 Potassium 3.1 mmol/L (3.5-5.1) L 10/30/19 06:30 Chloride 97 mmol/L (98-107) L 10/30/19 06:30 Magnesium 1.8 mg/dL (1.8-2.4) 10/30/19 01:40 Electrolytes, C-Reactive P, ESR: Reviewed (Low K+3.1 (2 boluses of PotChl 20mEq given)) - Antimicrobial Stewardship Antibiotic appropriateness: N/A Culture review/Resistance: Reviewed (c-diff ordered but not collected yet) - DM Control DM Control: Glucose 190 mg/dL (74-106) H 10/30/19 06:30 - Heart Failure/ND EF%, AMBER's, B-Blockers, Diuretics: Reviewed (Lopressor 50mg PO BID (home dose)) - BP Control BP Control: Blood Pressure 123/77 Blood Pressure 159/82 Blood Pressure 169/81 Blood Pressure 157/72 Blood Pressure 157/72 Blood Pressure 164/72 Blood Pressure 160/74 Blood Pressure 154/73 Blood Pressure 167/85 Blood Pressure 167/73 Blood Pressure 158/81 Blood Pressure 150/72 If elevated: Reviewed (Norvasc(home dose)) - QTc Review If Elevated: Reviewed (non current) - IV to PO Switch IV Medications: Reviewed (Azalia lang DC'd PO vitamin supplements for CIWA started) - Home Meds Home Med List reviewed: Reviewed - Current meds Current Medication Order Review: Reviewed (Here again, for IV fluids and to spber up. Probable discharge home tomorrow)
--- NOTE | 2019-10-30 16:22 | PT.INIE ---
Date of service: 10/30/19 Time of Service: 15:46 PT Notes Visit Reasons: ENTERITIS Inpatient Physical Therapy Evaluation Date: 10/30/2019 Referring Doctor: Laly Dumont MD PT Orders: PT CONSULT: Limited ability.? Precautions: Fall. Contact and Droplet precautions. Activity as tolerated. Patient Profile/Admitting Diagnosis: Patient is a 74-year-old female with past medical history significant for ETOH abuse, back pain, depression, and frequent falling who presented to the ED today with chief presentation of nausea, vomiting, and diarrhea. Patient has a diagnosis of enteritis with referral sent therapy to address impairments in mobility ADL performance. PMHX: Medical History Alcohol abuse (Chronic) Alcoholic ketosis (Resolved) Allergic rhinitis (Chronic) Anemia (Chronic 12/20/16) Back pain, chronic (Chronic) CAP (community acquired pneumonia) (Resolved) Cataract (Chronic 11/07/15) Cervical radicular pain (Chronic) neck pain and DJD [facility] Chronic alcoholic gastritis (Chronic 10/12/17) pls refrain from alcohol Corneal ulcer, right (Inactive ~08/23/18) 08/23/18; UV-kb Depression (Chronic) Elev transaminase/LDH (Chronic) due to alcohol Fall (Acute) Falling (Chronic) Genital herpes simplex (Chronic) recurrent genital; suppressive Valtrex GERD (gastroesophageal reflux disease) (Chronic) GI bleed (Resolved 12/20/16) Headache (Resolved) Hyperlipidemia (Chronic) Hypertension (Chronic) high today; she will check readings at home 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 Multiple rib fractures (Resolved) 03/11/19 [facility] Non-cardiac chest pain (Resolved 09/21/16) [facility] [place] [place] 09/21/16 NEGATIVE MP Osteoarthritis (Chronic) Osteopenia (Chronic) 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) Peripheral edema (Acute) Pleural effusion on left (Resolved) 03/11/19 [facility] Right rib fracture (Resolved) Sciatica (Chronic) right, epidural injuections [facility] Tendinitis of left rotator cuff (Inactive) Tubular adenoma of colon (Chronic 01/28/17) Urinary incontinence (Chronic) 01/24/13 urethral suspension and sling at [facility] [place] [place] (bladder suspension 1991) Wernicke encephalopathy (Chronic) Surgical History Bladder Surgery suspension Colonoscopy - MAC (01/28/17) EGD - MAC (12/20/16) History of bilateral ligation of fallopian tubes (Inactive) Ligation of fallopian tube Repair bladder injury, simple Colonoscopy - MAC (01/28/17) EGD - MAC (12/20/16) Ligation of fallopian tube Repair bladder injury, simple Social History/Home Situation: Leticia lives in a private home in [place]. She has a caregiver who comes in daily 5 days per week for 2 hours each time to assist with laundry, minor house chores, and grocery shopping. Patient is independent with MRADLs using a straight cane. She has a walker which she states she does not use often. She receives meals on wheels. She no longer drives. Equipment Owned/DME: FWW, SC, grab bars, emergency alert device Subjective: Patient is agreeable to PT consult. She reports being fatigued from symptoms of nausea vomiting and diarrhea but is amenable to trying whatever she can for this evaluation. Patient reported being lightheaded during ambulation activity. Objective: General Observation: Leticia was seen lying in bed upon arrival of this PT. IV in the left UE. Eye patch on the right. Mental Status: Alert and oriented as to person, place, time, and purpose Pain: 0/10 ROM: Right Upper Extremity: Shoulder Flexion allows up to 90 degrees. Shoulder abduction allows up to 90 degrees. Elbow flexion WFL. Wrist flexion WFL. Functional opening and closing of hand WFL. Left Upper Extremity: Shoulder Flexion allows up to 90 degrees. Shoulder abduction allows up to 90 degrees. Elbow flexion WFL. Wrist flexion WFL. Functional opening and closing of hand WFL. Right Lower Extremity: Hip flexion WFL. Hip abduction WFL. Knee flexion WFL. Ankle dorsiflexion WFL. Ankle plantarflexion WFL. Left Lower Extremity: Hip flexion WFL. Hip abduction WFL. Knee flexion WFL. Ankle dorsiflexion WFL. Ankle plantarflexion WFL. Strength: Right Upper Extremity: Shoulder flexors 3-/5. Shoulder abductors 3-/5. Elbow flexors 4/5. Elbow extensors 4/5. Entry Level Receptionist strong. Left Upper Extremity: Shoulder flexors 3-/5. Shoulder abductors 3-/5. Elbow flexors 4/5. Elbow extensors 4/5. Entry Level Receptionist strong. Right Lower Extremity: Hip flexors 4/5. Hip abductors 4/5. Knee flexors 4/5. Knee extensors 4/5. Ankle dorsiflexors 4/5. Ankle plantarflexors 4/5. Left Lower Extremity:Hip flexors 4/5. Hip abductors 4/5. Knee flexors 4/5. Knee extensors 4/5. Ankle dorsiflexors 4/5. Ankle plantarflexors 4/5. Bed Mobility/Transfers: Rolling moderate assist Supine to sit moderate assist Sit to supine moderate assist Sit to stand CGA Stand to sit CGA Bed to chair CGA Chair to bed CGA Gait: Patient exhibited reciprocal gait for 50 feet feet using a FWW with mild breathlessness after activity requiring CGA from PT. She appeared to have decreased step length. Complained of lightheadedness during ambulation activity which shortened distance significantly. Balance: Static Sitting: Normal Dynamic Sitting: Normal Static Standing: Fair Dynamic Standing: Fair Special Tests: Mobility Limitations Standardized Measure [facility] 6 clicks Basic Mobility Inpatient Short Form: Raw Score: 15 CMS Score: 58 % deficit Informed Consent/Education: Patient instructed in purpose of PT consult and plan of care. Assessment: Patient demonstrates generalized weakness resulting from current diagnoses as above. Patient is a 74-year-old female with past medical history significant for ETOH abuse, back pain, depression, and frequent falling who presented to the ED today with chief presentation of nausea, vomiting, and diarrhea. Patient has a diagnosis of enteritis with referral sent therapy to address and mobility ADL. Patient presents with clinical signs and symptoms consistent with current/admitting diagnoses that have resulted to mobility limitations, gait instability, generalized weakness, and impairment of motor control as demonstrated by the following impairment level findings: 1. Decreased strength to B UE/LE major muscle groups 2. Impaired standing balance 3. Impaired activity tolerance 4. Lightheadedness affecting ambulation distance Impairments are contributing to the following functional limitations: 1. Increased dependence with transfers 2. Inability to safely ambulate without assistive device and physical assistance 3. Increase completion time for mobility ADL performance 4. Increased fall risk 5. Inability to negotiate steps alone safely 6. Decreased ambulation distance Patient is assessed as a 21308 moderate complexity based on the following: History: 74-year-old female with impairment level findings, functional impairments, medical history, and [place] AM PAC deficit score of 58% Examination: Demonstrable impairment in strength, balance, and range of motion with underlying impairments and functional limitations as documented above Presentation: Evolving Decision Makin moderate complexity Goals: Goals X1 week 1. Supine-Sit independent 2. Sit-Supine independent 3. Sit-Stand independent 4. Stand-Sit independent 5. Bed-Chair independent 6. Chair-Bed independent 7. Independent gait on level surface with use of straight cane for at least 300 feet without report of pain nor dyspnea 8. Independent stair negotiation while holding onto bilateral rails for at least 5 steps without report of pain nor dyspnea 9. Independent with home exercise program 10. Good static and dynamic standing balance/tolerance DISCHARGE RECOMMENDATIONS: Patient will benefit from home health PT services in order to progress mobility level using least restrictive assistive ambulatory device, assess home safety, identify additional equipment needs, and establish a functional maintenance program that will increase ability of patient to remain at home. TREATMENT CODE/TIME: 07840 x 26 minutes beginning at 15:46 PM. Thank you very much for this referral. Tawana Cruz PT, DPT, CLT [facility] [place], [place]
--- NOTE | 2019-10-30 17:03 | W.PM.PROGNOT ---
Date of Service Date of service: 10/30/19 Time of Service: 17:03 Subjective Subjective Interval history since last seen: Leticia feels better. She states she had mild abdominal pain yesterday, but has none now. Denies dizziness, unless she tries to stand up. Denies chest pain, shortness of breath. Had nausea/vomiting this am. Abdomen feels distended. CTA abdomen/pelvis reviewed - colitis, no mesenteric ischemia. Cdiff ordered. Continue IVF, CIWA, clear liquids. Objective Objective Clinical Data: Abnormal lab results 10/30/19 10/30/19 10/30/19 Range/Units 01:40 01:40 01:40 Hgb 10.9 L (12.0-15.5) g/dL Hct 34.5 L (36.0-46.0) % MCHC 31.6 L (32.0-36.0) g/dL RDW 19.8 H (11.7-14.6) % Absolute Lymphocytes 0.48 L (1.2-3.4) k/cumm Potassium 3.4 L (3.5-5.1) mmol/L Chloride 97 L (98-107) mmol/L Carbon Dioxide 19.3 L (21.0-32.0) mmol/L Anion Gap 24.7 H (3-11) mmol/L Creatinine 1.16 H (0.55-1.02) mg/dL Glucose 149 H (74-106) mg/dL Lactate 8.2 H* (0.6-1.4) mmol/L Total Bilirubin 1.1 H (0.2-1.0) mg/dL AST 45 H (15-37) U/L Alkaline Phosphatase 132 H (46-116) U/L 10/30/19 10/30/19 10/30/19 Range/Units 06:30 06:30 11:05 Hgb (12.0-15.5) g/dL Hct (36.0-46.0) % MCHC (32.0-36.0) g/dL RDW (11.7-14.6) % Absolute Lymphocytes (1.2-3.4) k/cumm Potassium 3.1 L (3.5-5.1) mmol/L Chloride 97 L (98-107) mmol/L Carbon Dioxide 20.8 L (21.0-32.0) mmol/L Anion Gap 22.2 H (3-11) mmol/L Creatinine 1.09 H (0.55-1.02) mg/dL Glucose 190 H (74-106) mg/dL Lactate 4.3 H* 2.2 H* (0.6-1.4) mmol/L Total Bilirubin (0.2-1.0) mg/dL AST (15-37) U/L Alkaline Phosphatase (46-116) U/L Vital Signs Temperature 36.8 C 10/30/19 16:00 Temperature Source Tympanic 10/30/19 16:00 Pulse 88 10/30/19 16:00 Pulse Rhythm Regular 10/30/19 08:45 Respiratory Rate 19 10/30/19 16:00 Respiratory Effort Non-Labored 10/30/19 08:45 Respiratory Depth Normal 10/30/19 08:45 Respiratory Pattern Normal 10/30/19 08:45 Blood Pressure 143/84 H 10/30/19 16:00 Blood Pressure Mean 94 10/30/19 05:01 Pulse Oximetry 94 L 10/30/19 16:00 Oxygen Delivery Method Room Air 10/30/19 16:00 Oxygen Flow Rate 0 10/30/19 16:00 Pain Level 0 10/30/19 16:00 Intake & Output 10/29/19 10/30/19 10/30/19 23:59 11:59 23:59 Intake Total 1436.667 / 1786.667 350 / 1786.667 Balance 1436.667 / 1786.667 350 / 1786.667 Weight 65.1 kg Intake: IV 1436.667 / 1536.667 100 / 1536.667 Oral 250 / 250 Other: Urine Color Yellow Yellow Urine Appearance Clear Clear Urine Odor Strong Strong Stool Size Moderate Smear Stool Characteristics Soft Liquid Emesis Description Retching Voiding Methods Diaper Diaper Incontinent Incontinent Laboratory Results WBC 5.84 k/cumm (4.4-10.8) 10/30/19 01:40 RBC 4.04 m/cumm (4.00-5.20) 10/30/19 01:40 Hgb 10.9 g/dL (12.0-15.5) L 10/30/19 01:40 Hct 34.5 % (36.0-46.0) L 10/30/19 01:40 MCV 85.4 fL (80-95) 10/30/19 01:40 MCH 27.0 pg (27.0-33.0) 10/30/19 01:40 MCHC 31.6 g/dL (32.0-36.0) L 10/30/19 01:40 RDW 19.8 % (11.7-14.6) H 10/30/19 01:40 Plt Count 250 x1000/uL (130-400) 10/30/19 01:40 MPV 9.1 fL (8.0-11.0) 10/30/19 01:40 Immature Gran % 0.0 % 10/30/19 01:40 Neutrophils % 88.2 10/30/19 01:40 Lymphocytes % 8.2 10/30/19 01:40 Monocytes % 3.1 10/30/19 01:40 Eosinophils % 0.2 10/30/19 01:40 Basophils % 0.3 10/30/19 01:40 Absolute Neutrophils 5.15 k/cumm (1.2-6.7) 10/30/19 01:40 Absolute Lymphocytes 0.48 k/cumm (1.2-3.4) L 10/30/19 01:40 Absolute Monocytes 0.18 k/cumm (0.11-0.7) 10/30/19 01:40 Absolute Eosinophils 0.01 k/cumm (0.0-0.7) 10/30/19 01:40 Absolute Basophils 0.02 k/cumm (0.0-0.2) 10/30/19 01:40 Sodium 140 mmol/L (136-145) 10/30/19 06:30 Potassium 3.1 mmol/L (3.5-5.1) L 10/30/19 06:30 Chloride 97 mmol/L (98-107) L 10/30/19 06:30 Carbon Dioxide 20.8 mmol/L (21.0-32.0) L 10/30/19 06:30 Anion Gap 22.2 mmol/L (3-11) H 10/30/19 06:30 BUN 17 mg/dL (7-18) 10/30/19 06:30 Creatinine 1.09 mg/dL (0.55-1.02) H 10/30/19 06:30 Estimated GFR/1.73 m2 49.20 (mL/min/1.73m2) 10/30/19 06:30 Glucose 190 mg/dL (74-106) H 10/30/19 06:30 Lactate 2.2 mmol/L (0.6-1.4) H* 10/30/19 11:05 Calcium 9.9 mg/dL (8.5-10.1) 10/30/19 06:30 Magnesium 1.8 mg/dL (1.8-2.4) 10/30/19 01:40 Total Bilirubin 1.1 mg/dL (0.2-1.0) H 10/30/19 01:40 AST 45 U/L (15-37) H 10/30/19 01:40 ALT 34 U/L (14-59) 10/30/19 01:40 Alkaline Phosphatase 132 U/L (46-116) H 10/30/19 01:40 Total Protein 7.6 g/dL (6.4-8.2) 10/30/19 01:40 Albumin 3.9 g/dL (3.4-5.0) 10/30/19 01:40 Lipase 57 U/L (73-393) 10/30/19 01:40 Ethyl Alcohol 81.4 mg/dL (<3) 10/30/19 01:40
[2019-10-30 17:40] LABS: Lactate 1.5 mmol/L (0.6-1.4)
[2019-10-31] VITALS (10 sets, daily range): BP systolic 125–143; BP diastolic 71–84; PULSE 80–110; RESP 18–20; TEMP 36.2–37.2; O2SAT 92–97
[2019-10-31] MEDS: Lactated Ringers 1,000 ML 200 ML IV ×3 (00:03→10:03)
[2019-10-31] MEDS: Pantoprazole 40 MG VIAL IVP (05:56)
[2019-10-31 07:27] LABS: Lactate 1.6 mmol/L (0.6-1.4)
[2019-10-31 07:39] LABS: White Blood Cell Count 3.25 k/cumm (4.4-10.8)
[2019-10-31 07:40] LABS: Abs Immature Grans 0.01 k/cumm (0.0-0.09); Absolute Eosinophil Count 0.02 k/cumm (0.0-0.7); Absolute Lymphocyte Count 0.96 k/cumm (1.2-3.4); Absolute Monocyte Count 0.34 k/cumm (0.11-0.7); Absolute Neutrophil Count 1.92 k/cumm (1.2-6.7); Eosinophils % 0.6; HCT 30.2 % (36.0-46.0); Immature Grans % 0.3 %; Lymphocytes % 29.5; Mean Corp. HGB Concentration 29.8 g/dL (32.0-36.0); Mean Corpuscular Hemoglobin 26.3 pg (27.0-33.0); Mean Corpuscular Volume 88.3 fL (80-95); Mean Platelet Volume 8.7 fL (8.0-11.0); Monocytes % 10.5; Neutrophils % 59.1; Platelet Count 192 x1000/uL (130-400); RBC 3.42 m/cumm (4.00-5.20)
[2019-10-31 08:11] LABS: Anion Gap 5.6 mmol/L (3-11); BUN 10 mg/dL (7-18); CO2 29.4 mmol/L (21.0-32.0); CREATININE 0.93 mg/dL (0.55-1.02); Calcium 8.9 mg/dL (8.5-10.1); Chloride 100 mmol/L (98-107); Glucose 118 mg/dL (74-106); Magnesium 1.4 mg/dL (1.8-2.4); Potassium 3.2 mmol/L (3.5-5.1); Sodium 135 mmol/L (136-145)
[2019-10-31 08:16] LABS: Procalcitonin 0.1 ng/mL
[2019-10-31] MEDS: Folic Acid 1 MG TAB PO (09:08)
[2019-10-31] MEDS: Venlafaxine 37.5 MG CAPCR PO (09:08)
[2019-10-31] MEDS: Multivitamin TAB 1 TAB PO (09:08)
[2019-10-31] MEDS: Venlafaxine 150 MG CAPCR PO (09:08)
[2019-10-31] MEDS: amLODIPine 10 MG TAB PO (09:08)
[2019-10-31] MEDS: Metoprolol 50 MG TAB PO ×2 (09:08→20:15)
[2019-10-31] MEDS: Sucralfate 1 GM TAB PO ×4 (09:08→22:04)
[2019-10-31] MEDS: Gabapentin 300 MG CAP PO ×2 (09:08→20:15)
[2019-10-31] MEDS: Thiamine 100 MG TAB PO (09:08)
[2019-10-31] MEDS: LORazepam 1 MG TAB PO/SL (09:13)
[2019-10-31] MEDS: Normal Saline 1,000 ML 100 ML IV (11:00)
[2019-10-31] MEDS: MAGNESIUM SULFATE 4 GM/100 ML BAG IVPB (11:32)
[2019-10-31] MEDS: Magnesium Oxide 400 MG TAB 800 MG PO (11:33)
[2019-10-31] MEDS: Potassium Chloride 20 MEQ TABCR 40 MEQ PO ×2 (11:34→16:21)
[2019-10-31 12:30] LABS: ALT 30 U/L (14-59); AST 40 U/L (15-37); Albumin 3.1 g/dL (3.4-5.0); Alkaline Phosphatase 98 U/L (46-116); Bilirubin, Direct 0.26 mg/dL (0.00-0.20); Bilirubin, Total 1.1 mg/dL (0.2-1.0); Total Protein 5.9 g/dL (6.4-8.2)
--- NOTE | 2019-10-31 15:35 | W.NUTCONSULT ---
Date of service: 10/31/19 Time of Service: 15:35 Nutritional Consult ASSESSMENT: 74 year old female admitted with enteritis, n/v/d. Long history of multiple bouts of alcoholic gastritis. Met with Leticia today and she reports no change in appetite or weight prior to admission. Meds include MVI, thiamine, folic acid. BMI wnl for age. Following regular meal plan with adequate intake. Labs indicate low levels of K, sodium, Mg- being repleted. Not considered at nutritional risk at this time. Receiving appropriate vit/min repletion. MONITORING AND EVALUATION: weight, po intake, labs monitored daily Time Spent in Nutritional Counseling and Treatment: 15 min spent face to face
--- NOTE | 2019-10-31 16:04 | CMPROGNOTE_ITS ---
- If Service Date Differs Date of service: 10/31/19 Time of Service: 16:04 Care Management Progress Note S/O: Leticia was being bathed when CM attempted to meet with her. She was sleeping upon another attempt. Per report, C.Diff was negative. PT is recommending PT. Per report, Palliative will be consulted. CM will continue to follow. A: Leticia is a 74 year old female admitted to [facility] on 10/30/19 with Enteritis. P: Anticipate Leticia will likely return home with a resumption of services. She has a private caregiver, MOW and nursing and OT. She will follow up with her PCP and discharge plan of care and transport via [facility]. CM will continue to follow and support Leticia and her discharge planning needs.
[2019-10-31 16:09] LABS: Lactate 1.6 mmol/L (0.6-1.4)
--- NOTE | 2019-10-31 16:40 | W.PM.PROGNOT ---
Date of Service Date of service: 10/31/19 Time of Service: 16:40 Assessment and Plan Assessment and plan (1) Enteritis: Start date: 10/31/19 Start time: 16:48 Status: Acute Assessment and plan: Imaging with colitis. Cdiff negative. Bentyl started for abdominal pain. 7 loose stool today. N/V has subsided. Replete electrolytes. Zofran for nausea. PPI, tolerating regular diet. (2) Nausea, vomiting and diarrhea: Start date: 10/31/19 Start time: 16:50 Status: Acute Assessment and plan: As above. (3) Lactic acidosis: Start date: 10/31/19 Start time: 16:50 Status: Acute Assessment and plan: Continues to be 1.6, could be due to liver injury. LFTs for am. (4) Sacral mass: Start date: 10/31/19 Start time: 16:51 Status: Acute Assessment and plan: Se[place] [facility] [place] of mass, continue to seek care for further work up. (5) Photophobia of right eye: Start date: 10/31/19 Start time: 16:52 Status: Acute Assessment and plan: Wears eye patch (6) Alcohol abuse: Start date: 10/31/19 Start time: 16:52 Status: Chronic Assessment and plan: CIWA scores over night 5, 2,2,0. Does not appear to be actively withdrawaling. Continue folate, thiamine and multivitamin. Continue to monitor for withdrawal. (7) DVT prophylaxis: Start date: 10/31/19 Start time: 16:56 Status: Acute Assessment and plan: heparin subcu. Above case discussed with Dr. Dumont who is in agreement. Subjective Subjective Patient reports: no new complaints Interval history since last seen: 7 bouts loose stool today. Cdiff negative. C/o cramping to belly. Started on dicyclomine for belly pain. Exam Narrative Exam Narrative: Const: Younger than stated age female sitting up in chair eating meal. AAOx3 Eyes: PERRLA, Neck: no jvd, no lymphedema. Resp: even unlabored, able to speak sentences without difficulty. Clear to auscultation. Cardio: RRR no murmur appreciated. GI: continues to have pain to LUQ on palpation. hyperactive bs, loose stool Extrem: no clubbing, cyanosis or edema. Objective Objective Clinical Data: Abnormal lab results 10/30/19 10/31/19 10/31/19 Range/Units 17:30 07:20 07:20 WBC 3.25 L (4.4-10.8) k/cumm RBC 3.42 L (4.00-5.20) m/cumm Hgb 9.0 L (12.0-15.5) g/dL Hct 30.2 L (36.0-46.0) % MCH 26.3 L (27.0-33.0) pg MCHC 29.8 L (32.0-36.0) g/dL RDW 20.0 H (11.7-14.6) % Absolute Lymphocytes 0.96 L (1.2-3.4) k/cumm Sodium 135 L (136-145) mmol/L Potassium 3.2 L (3.5-5.1) mmol/L Glucose 118 H (74-106) mg/dL Lactate 1.5 H (0.6-1.4) mmol/L Magnesium 1.4 L (1.8-2.4) mg/dL Total Bilirubin (0.2-1.0) mg/dL Conjugated Bilirubin (0.00-0.20) mg/dL AST (15-37) U/L Total Protein (6.4-8.2) g/dL Albumin (3.4-5.0) g/dL 10/31/19 10/31/19 10/31/19 Range/Units 07:20 07:20 15:58 WBC (4.4-10.8) k/cumm RBC (4.00-5.20) m/cumm Hgb (12.0-15.5) g/dL Hct (36.0-46.0) % MCH (27.0-33.0) pg MCHC (32.0-36.0) g/dL RDW (11.7-14.6) % Absolute Lymphocytes (1.2-3.4) k/cumm Sodium (136-145) mmol/L Potassium (3.5-5.1) mmol/L Glucose (74-106) mg/dL Lactate 1.6 H 1.6 H (0.6-1.4) mmol/L Magnesium (1.8-2.4) mg/dL Total Bilirubin 1.1 H (0.2-1.0) mg/dL Conjugated Bilirubin 0.26 H (0.00-0.20) mg/dL AST 40 H (15-37) U/L Total Protein 5.9 L (6.4-8.2) g/dL Albumin 3.1 L (3.4-5.0) g/dL Vital Signs Temperature 36.8 C 10/31/19 11:00 Temperature Source Tympanic 10/31/19 11:00 Pulse 80 10/31/19 11:00 Pulse Rhythm Regular 10/31/19 10:00 Respiratory Rate 20 10/31/19 11:00 Respiratory Effort 10/31/19 10:00 Respiratory Depth Normal 10/31/19 10:00 Respiratory Pattern Normal 10/31/19 10:00 Blood Pressure 135/82 10/31/19 11:00 Blood Pressure Mean 94 10/30/19 05:01 Pulse Oximetry 97 10/31/19 11:00 Oxygen Delivery Method Room Air 10/31/19 11:00 Oxygen Flow Rate 0 10/31/19 11:00 Pain Level 4 10/31/19 11:00 Intake & Output 10/30/19 10/31/19 10/31/19 23:59 11:59 23:59 Intake Total 2002.333 / 5440.000 3166.667 / 3853.334 686.667 / 3853.334 Balance 2002.333 / 5440.000 3166.667 / 3853.334 686.667 / 3853.334 Intake: IV 673.333 / 4110.000 2926.667 / 3613.334 686.667 / 3613.334 Oral 1330 / 1330 240 / 240 Other: Urine Color Yellow Yellow Urine Appearance Clear Clear Urine Odor Strong Stool Occult Blood Negative Stool Size Moderate Moderate Stool Characteristics Soft Soft Liquid Liquid Brown Voiding Methods Diaper Toilet Incontinent Laboratory Results WBC 3.25 k/cumm (4.4-10.8) L 10/31/19 07:20 RBC 3.42 m/cumm (4.00-5.20) L 10/31/19 07:20 Hgb 9.0 g/dL (12.0-15.5) L 10/31/19 07:20 Hct 30.2 % (36.0-46.0) L 10/31/19 07:20 MCV 88.3 fL (80-95) 10/31/19 07:20 MCH 26.3 pg (27.0-33.0) L 10/31/19 07:20 MCHC 29.8 g/dL (32.0-36.0) L 10/31/19 07:20 RDW 20.0 % (11.7-14.6) H 10/31/19 07:20 Plt Count 192 x1000/uL (130-400) 10/31/19 07:20 MPV 8.7 fL (8.0-11.0) 10/31/19 07:20 Immature Gran % 0.3 % 10/31/19 07:20 Neutrophils % 59.1 10/31/19 07:20 Lymphocytes % 29.5 10/31/19 07:20 Monocytes % 10.5 10/31/19 07:20 Eosinophils % 0.6 10/31/19 07:20 Basophils % 0.0 10/31/19 07:20 Absolute Neutrophils 1.92 k/cumm (1.2-6.7) 10/31/19 07:20 Absolute Lymphocytes 0.96 k/cumm (1.2-3.4) L 10/31/19 07:20 Absolute Monocytes 0.34 k/cumm (0.11-0.7) 10/31/19 07:20 Absolute Eosinophils 0.02 k/cumm (0.0-0.7) 10/31/19 07:20 Absolute Basophils 0.00 k/cumm (0.0-0.2) 10/31/19 07:20 Sodium 135 mmol/L (136-145) L 10/31/19 07:20 Potassium 3.2 mmol/L (3.5-5.1) L 10/31/19 07:20 Chloride 100 mmol/L (98-107) 10/31/19 07:20 Carbon Dioxide 29.4 mmol/L (21.0-32.0) 10/31/19 07:20 Anion Gap 5.6 mmol/L (3-11) 10/31/19 07:20 BUN 10 mg/dL (7-18) D 10/31/19 07:20 Creatinine 0.93 mg/dL (0.55-1.02) 10/31/19 07:20 Estimated GFR/1.73 m2 59.10 (mL/min/1.73m2) 10/31/19 07:20 Glucose 118 mg/dL (74-106) H 10/31/19 07:20 Lactate 1.6 mmol/L (0.6-1.4) H 10/31/19 15:58 Calcium 8.9 mg/dL (8.5-10.1) 10/31/19 07:20 Magnesium 1.4 mg/dL (1.8-2.4) L 10/31/19 07:20 Total Bilirubin 1.1 mg/dL (0.2-1.0) H 10/31/19 07:20 Conjugated Bilirubin 0.26 mg/dL (0.00-0.20) H 10/31/19 07:20 AST 40 U/L (15-37) H 10/31/19 07:20 ALT 30 U/L (14-59) 10/31/19 07:20 Alkaline Phosphatase 98 U/L (46-116) 10/31/19 07:20 Total Protein 5.9 g/dL (6.4-8.2) L 10/31/19 07:20 Albumin 3.1 g/dL (3.4-5.0) L 10/31/19 07:20 Lipase 57 U/L (73-393) 10/30/19 01:40 Procalcitonin 0.1 ng/mL 10/31/19 07:20 Ethyl Alcohol 81.4 mg/dL (<3) 10/30/19 01:40
--- NOTE | 2019-10-31 17:52 | PCNE_ITS ---
Date of service: 10/31/19 Time of Service: 13:53 History of Present Illness Consults Consult date: 10/31/19 Requesting physician: Laly Dumont Assessment and Plan Assessment and plan (1) Nausea, vomiting and diarrhea: Status: Acute Assessment and plan: improving. Pt eating lunch (2) Humerus fracture: Status: Acute Assessment and plan: Pt needs a sling due to the pain. (3) Alcoholic gastritis without bleeding: Status: Acute Assessment and plan: continues to drink. Plans to reduce, but doesn't have any intentions of stopping (4) Dehydration: Status: Resolved Assessment and plan: on IV fluids (5) Chronic alcoholism: Status: Chronic (6) Presacral mass: Status: Acute Assessment and plan: stable over many CT scans for 4 plus years. No adenopathy Mostlikely does not need f/u (7) Incidental lung nodule, greater than or equal to 8mm: Status: Acute Assessment and plan: Stable for [address] which did not show change, recommended 3-6 m f/u (8) Encounter for hospice care discussion: Status: Acute Assessment and plan: The pt fully expects to live for 10-20 years and wants aggressive care for her problems. That said her presacral mass has been stable for 4 years and probably doesn't require f/u. Her lung nodule , 1 cm, could be biopsied, but serial chest CT have not shown change or adenopathy. Review of Systems Narrative: Leticia states that her right arm hurts because she does not have a sling on it. She does not have any new breaks. She still is nauseous but she did eat her entire lunch in front of me. She has not vomited recently. She has no interest in stopping her alcohol intake but she does state that she has reduced it. She has not had any chest pain or difficulty breathing [facility] Medical History Alcohol abuse (Chronic) Alcoholic ketosis (Resolved) Allergic rhinitis (Chronic) Anemia (Chronic 12/20/16) Back pain, chronic (Chronic) CAP (community acquired pneumonia) (Resolved) Cataract (Chronic 11/07/15) Cervical radicular pain (Chronic) neck pain and [facility] Chronic alcoholic gastritis (Chronic 10/12/17) pls refrain from alcohol Corneal ulcer, right (Inactive ~08/23/18) 08/23/18; UV-kb Depression (Chronic) Elev transaminase/LDH (Chronic) due to alcohol Fall (Acute) Falling (Chronic) Genital herpes simplex (Chronic) recurrent gential; suppressive Valtrex GERD (gastroesophageal reflux disease) (Chronic) GI bleed (Resolved 12/20/16) Headache (Resolved) Hyperlipidemia (Chronic) Hypertension (Chronic) high today; she will check readings at home 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 Multiple rib fractures (Resolved) 03/11/19 [facility] Non-cardiac chest pain (Resolved 09/21/16) [facility] 09/21/16 NEGATIVE MP Osteoarthritis (Chronic) Osteopenia (Chronic) 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) Peripheral edema (Acute) Pleural effusion on left (Resolved) 03/11/19 [facility] Right rib fracture (Resolved) Sciatica (Chronic) right, epidural injuections [facility] Tendinitis of left rotator cuff (Inactive) Tubular adenoma of colon (Chronic 01/28/17) Urinary incontinence (Chronic) 01/24/13 urethral suspension and sling at [facility] (bladder suspension 1991) Wernicke encephalopathy (Chronic) Surgical History Bladder Surgery suspension Colonoscopy - MAC (01/28/17) EGD - MAC (12/20/16) History of bilateral ligation of fallopian tubes (Inactive) Ligation of fallopian tube Repair bladder injury, simple Family History Mother No problems noted. Father , DROWNED at age 50. No problems noted. Sister Personal history of malignant neoplasm MELANOMA Sister No problems noted. Grandfather Personal history of malignant neoplasm STOMACH Grandfather Personal history of malignant neoplasm PROSTATE Grandmother Heart disease OR Acute ill-defined cerebrovascular disease Grandmother Personal history of malignant neoplasm UTERINE Aunt , OR Heart disease OR Aunt , OR Heart disease Brother No problems noted. Social History Smoking/Tobacco Use Status: Former Tobacco Use Alcohol Intake: current Alcohol Intake frequency: 3 or more drinks per day Alcohol type: hard liquor Drug use: Never Substance use type: does not use Details: last drink at midnight Current gender identity: female Do you feel safe at home: Yes Do you feel safe in your relationship?: Yes Additional Social history: Exam Narrative Exam Narrative: am(s) a CT:CT abdomen & pelvis w EXAM: CT ABDOMEN PELVIS W CLINICAL HISTORY: diarrhea, abdominal pain, elevated lactate TECHNIQUE: Post IV contrast. Without oral contrast. COMPARISON: CT CHEST/ABD/PEL W from 07/22/2019 FINDINGS: There are old bilateral rib fractures. The heart size is normal. Mild atelectasis or scarring is seen at the lung bases. The liver shows diffuse fatty infiltration. There is a small hiatal hernia. The gallbladder, spleen, pancreas and adrenals are unremarkable. There are several bilateral renal cysts. There is mild to moderate aortic calcification. The aorta is normal in diameter. The bladder, ovaries and uterus are unremarkable. There are small bilateral fatty containing inguinal hernias. Colon is mainly collapsed. There is some wall thickening which appears diffuse, greater at the ascending colon. Pre sacral soft tissue mass is seen, not significantly changed. There is no ascites. No adenopathy is seen. Degenerative changes are again noted in the spine. IMPRESSION: Mild diffuse colonic wall thickening, consistent with colitis. No evidence of bowel obstruction. Stable presacral mass. FINDINGS: CHEST: There is stable mild cardiac enlargement. No pericardial effusion is seen. There is motion at the aortic root. There is no gross evidence of dissection. There is a stable small left pleural effusion with adjacent atelectasis. There are posterior dependent changes in both lungs. There is mild scarring at the left lung base. There is a stable 1 centimeter, spiculated appearing lesion at the right lung apex which could represent an additional area of scarring. No adenopathy is seen. There is no evidence of pneumothorax. There are bilateral old rib fractures. Abdomen and pelvis: The liver shows mild fatty infiltration. The gallbladder, spleen, pancreas and adrenals are unremarkable. Multiple bilateral renal cysts are again noted. The appendix appears normal. There is a moderate quantity of stool. No bowel dilatation or inflammatory changes are seen. Again noted is a presacral soft tissue mass. The uterus and bladder are unremarkable. IMPRESSION: No acute abnormality is seen in the chest, abdomen or pelvis. 1 centimeters area of presumed scarring at the right lung apex. It appears unchanged when compared with a neck CT 02/01/16. Presacral mass. Const General: cooperative, no acute distress and disheveled Orientation: oriented x3 Eyes Other: patch over right eye Resp Effort & Inspection: normal respiratory effort and able to speak in complete sentences Auscultation: abnormal I/E ratio Cardio Rate: regular rate Rhythm: regular rhythm Heart Sounds: murmur GI Palpation: soft General: deferred Skin General skin exam: dry skin and pallor Psych Appearance: disheveled Speech and Movement: speech clear and slowed movement Affect: indifferent Attitude: cooperative Results Last Vital Signs Temp 97.2 F L 10/31/19 15:30 Pulse 81 10/31/19 15:30 Resp 19 10/31/19 15:30 BP 125/71 10/31/19 15:30 Pulse Ox 93 L 10/31/19 15:30 Labs Result diagrams: 10/31/19 07:20 11/01/19 06:51 Labs: Laboratory Results - last 24 hr 10/31/19 10/31/19 10/31/19 07:20 07:20 07:20 WBC 3.25 L RBC 3.42 L Hgb 9.0 L Hct 30.2 L MCV 88.3 MCH 26.3 L MCHC 29.8 L RDW 20.0 H Plt Count 192 MPV 8.7 Immature Gran % 0.3 Neutrophils % 59.1 Lymphocytes % 29.5 Monocytes % 10.5 Eosinophils % 0.6 Basophils % 0.0 Absolute Neutrophils 1.92 Absolute Lymphocytes 0.96 L Absolute Monocytes 0.34 Absolute Eosinophils 0.02 Absolute Basophils 0.00 Sodium 135 L Potassium 3.2 L Chloride 100 Carbon Dioxide 29.4 Anion Gap 5.6 BUN 10 D Creatinine 0.93 Estimated GFR/1.73 m2 59.10 Glucose 118 H Lactate 1.6 H Calcium 8.9 Magnesium 1.4 L Total Bilirubin Conjugated Bilirubin AST ALT Alkaline Phosphatase Total Protein Albumin Procalcitonin 10/31/19 10/31/19 10/31/19 07:20 07:20 15:58 WBC RBC Hgb Hct MCV MCH MCHC RDW Plt Count MPV Immature Gran % Neutrophils % Lymphocytes % Monocytes % Eosinophils % Basophils % Absolute Neutrophils Absolute Lymphocytes Absolute Monocytes Absolute Eosinophils Absolute Basophils Sodium Potassium Chloride Carbon Dioxide Anion Gap BUN Creatinine Estimated GFR/1.73 m2 Glucose Lactate 1.6 H Calcium Magnesium Total Bilirubin 1.1 H Conjugated Bilirubin 0.26 H AST 40 H ALT 30 Alkaline Phosphatase 98 Total Protein 5.9 L Albumin 3.1 L Procalcitonin 0.1
[2019-10-31] MEDS: Dicyclomine 10 MG CAP PO (20:15)
[2019-10-31] MEDS: Heparin 5,000 UNITS/ML VIAL 5000 UNITS SC (20:15)
[2019-11-01] VITALS: BP 143/88; PULSE 81; RESP 20; TEMP 36.6; O2SAT 91
[2019-11-01] MEDS: Normal Saline 1,000 ML 100 ML IV ×2 (01:18→11:18)
[2019-11-01] MEDS: Heparin 5,000 UNITS/ML VIAL 5000 UNITS SC ×3 (04:28→21:20)
[2019-11-01 04:33] VITALS: BP 143/83; PULSE 88; RESP 18; TEMP 37.1; O2SAT 97
[2019-11-01] MEDS: Pantoprazole 40 MG VIAL IVP (06:07)
[2019-11-01 07:35] LABS: Prothrombin Time 9.6 sec (9.3-11.0)
[2019-11-01] MEDS: Metoprolol 50 MG TAB PO ×2 (09:02→21:20)
[2019-11-01] MEDS: Folic Acid 1 MG TAB PO (09:02)
[2019-11-01] MEDS: Dicyclomine 10 MG CAP PO ×4 (09:02→21:20)
[2019-11-01] MEDS: Thiamine 100 MG TAB PO (09:02)
[2019-11-01] MEDS: Gabapentin 300 MG CAP PO ×2 (09:02→21:20)
[2019-11-01] MEDS: Multivitamin TAB 1 TAB PO (09:02)
[2019-11-01] MEDS: Sucralfate 1 GM TAB PO ×4 (09:02→21:20)
[2019-11-01] MEDS: Venlafaxine 150 MG CAPCR PO (09:03)
[2019-11-01] MEDS: Venlafaxine 37.5 MG CAPCR PO (09:03)
[2019-11-01] MEDS: amLODIPine 10 MG TAB PO (09:03)
--- NOTE | 2019-11-01 09:33 | PT.INTREAT ---
PT Notes Visit Reasons: ENTERITIS Inpatient Physical Therapy Treatment Note [facility] Date: 10/31/2019 SUBJECTIVE: Leticia refused treatment this am due to diarrhea. She was only agreeable to walking this pm. OBJECTIVE: [] BED MOBILITY/TRANSFERS Sit-stand: CGA Stand-sit: CGA GAIT Assistive Device: FWW Weight bearing: full Assist: CGA Distance: 120' Deviation: she required assistance to help steer her walker due to poor vision. ASSESSMENT: tolerated session well, despite c/o diarrhea. She was fairly steady on her feet, no LOB. PLAN: continue progressing towards established goals. TREATMENT CODE/TIME: 20 min. [id number]
[2019-11-01 09:38] LABS: Anion Gap 5.2 mmol/L (3-11); BUN 5 mg/dL (7-18); CO2 29.8 mmol/L (21.0-32.0); CREATININE 0.94 mg/dL (0.55-1.02); Calcium 8.6 mg/dL (8.5-10.1); Chloride 100 mmol/L (98-107); Estimated GFR 58.37 (mL/min/1.73m2); Glucose 113 mg/dL (74-106); Magnesium 1.8 mg/dL (1.8-2.4); Potassium 4.2 mmol/L (3.5-5.1); Sodium 135 mmol/L (136-145)
[2019-11-01] MEDS: Acetaminophen 325 MG TAB 650 MG PO (11:44)
--- NOTE | 2019-11-01 11:50 | PT.INNT ---
Date of service: 11/01/19 Time of Service: 11:50 PT Notes Visit Reasons: ENTERITIS 11/01/2019 Pt declines PT this AM. Will check back in this afternoon. Odette Saul, BIOMASS FACILITATOR
[2019-11-01 12:04] VITALS: BP 136/66; PULSE 78; RESP 15; TEMP 36.6; O2SAT 95
--- NOTE | 2019-11-01 14:26 | PTTR_ITS ---
Date of service: 11/01/19 Time of Service: 14:26 PT Notes Visit Reasons: ENTERITIS 11/01/2019 SUBJECTIVE: Leticia agreeable to PT treatment this afternoon. She notes some stomach discomfort throughout. OBJECTIVE: TRANSFERS: Supine to sit: Min A Sit to supine: Min A Sit to stand: CGA Stand to sit: CGA GAIT Device: FWW Weight bearing: Full Assist: CGA Distance: 150' Deviation: Step through pattern ASSESSMENT: Pt ambulates well this afternoon without LOB or path deviations. She complains of discomfort in her abdomen throughout. PLAN: Continue current POC. Treatment time: Odette Saul, BACK UP SCAN COORDINATOR
--- NOTE | 2019-11-01 15:53 | PDOC.CMPRO ---
- If Service Date Differs Date of service: 11/01/19 Time of Service: 15:53 Care Management Progress Note S/O: Leticia was lying in bed when CM met with her. She reported that she is still not feeling well. She reported that she met with Dr. Young yesterday, and she is happy to 'not be at 's door yet'. She stated that she drinks Ensure, and is wondering if that is giving her diarrhea. CM will inquire with nutrition regarding this question. She also stated that she was [facility], and she was upset about that. CM will continue to follow. A: Leticia is a 74 year old female admitted to [facility] on 10/30/19 with Enteritis. P: Anticipate Leticia will likely return home with a resumption of services. She has a private caregiver, MOW and nursing and OT. She will follow up with her PCP and discharge plan of care and transport via [facility]. CM will continue to follow and support Leticia and her discharge planning needs.
[2019-11-01 16:38] VITALS: BP 148/89; PULSE 84; RESP 16; TEMP 37; O2SAT 96
--- NOTE | 2019-11-01 17:07 | W.PM.PROGNOT ---
Date of Service Date of service: 11/01/19 Time of Service: 17:07 Assessment and Plan Assessment and plan (1) Nausea, vomiting and diarrhea: Status: Acute Assessment and plan: With evidence of colitis on CT. C. Diff negative. Continue diet as tolerated, though the patient should really consider different dietary choices. provide prn imodium, bentyl. (2) Humerus fracture: Status: Chronic Assessment and plan: LUE, chronic. Will provide a sling. Consult OT. (3) Alcoholic gastritis without bleeding: Status: Acute Assessment and plan: Continue PPI/carafate (4) Dehydration: Status: Resolved Assessment and plan: D/c IVF. (5) Chronic alcoholism: Status: Chronic Assessment and plan: Monitor on CIWA. (6) Presacral mass: Status: Acute Assessment and plan: For follow up as outpatient if desires. (7) Incidental lung nodule, greater than or equal to 8mm: Status: Acute Assessment and plan: The patient has failed to follow up with [facility]. Did have an attempt in bx, but there was a complication. At this point, the patient can choose to follow up with [facility] [place] if she so desires - however, needs to stop drinking first, and that is unlikely to happen Subjective Subjective Interval history since last seen: Continues to report diarrhea. At the same time, she has beets on her dinner tray and has been eating and tolerating generous portions on her tray. She says after she eats, she gets nauseated. Reports chronic cough productive of white sputum. Denies dizzines, chest pain. Has epigastric abdominal pain. She is not interested in backing off of her diet or making different dietary choices. Exam Narrative Exam Narrative: General: Pleasant elderly female, laying comfortably in bed, eating dinner, A&Ox3 HEENT: EOMI, MMM Heart: RRR, no m/r/g Lungs: CTAB Abdomen: soft, nontender, mildly diffusely distended Extremities: no e/c/c BLE's Objective Objective Clinical Data: Abnormal lab results 11/01/19 Range/Units 06:51 Sodium 135 L (136-145) mmol/L BUN 5 L (7-18) mg/dL Glucose 113 H (74-106) mg/dL Vital Signs Temperature 37 C 11/01/19 16:38 Temperature Source Tympanic 11/01/19 16:38 Pulse 84 11/01/19 16:38 Pulse Rhythm Regular 11/01/19 09:36 Respiratory Rate 16 11/01/19 16:38 Respiratory Effort Non-Labored 11/01/19 09:36 Respiratory Depth Normal 11/01/19 09:36 Respiratory Pattern Normal 11/01/19 09:36 Blood Pressure 148/89 H 11/01/19 16:38 Blood Pressure Mean 94 10/30/19 05:01 Pulse Oximetry 96 11/01/19 16:38 Oxygen Delivery Method Room Air 11/01/19 16:38 Oxygen Flow Rate 0 11/01/19 16:38 Pain Level 4 11/01/19 16:38 Intake & Output 10/31/19 11/01/19 11/01/19 23:59 11:59 23:59 Intake Total 1926.667 / 5093.334 1480 / 1720 240 / 1720 Balance 1926.667 / 5093.334 1480 / 1720 240 / 1720 Intake: IV 1686.667 / 4613.334 1000 / 1000 Oral 240 / 480 480 / 720 240 / 720 Other: Urine Color Yellow Yellow Urine Appearance Clear Clear Urine Odor Normal Comment pt incontinent Stool Size Copious Small Stool Characteristics Soft Soft Liquid Brown Brown Voiding Methods Diaper Bedside Commode Toilet Incontinent Diaper Diaper Incontinent Incontinent Laboratory Results WBC 3.25 k/cumm (4.4-10.8) L 10/31/19 07:20 RBC 3.42 m/cumm (4.00-5.20) L 10/31/19 07:20 Hgb 9.0 g/dL (12.0-15.5) L 10/31/19 07:20 Hct 30.2 % (36.0-46.0) L 10/31/19 07:20 MCV 88.3 fL (80-95) 10/31/19 07:20 MCH 26.3 pg (27.0-33.0) L 10/31/19 07:20 MCHC 29.8 g/dL (32.0-36.0) L 10/31/19 07:20 RDW 20.0 % (11.7-14.6) H 10/31/19 07:20 Plt Count 192 x1000/uL (130-400) 10/31/19 07:20 MPV 8.7 fL (8.0-11.0) 10/31/19 07:20 Immature Gran % 0.3 % 10/31/19 07:20 Neutrophils % 59.1 10/31/19 07:20 Lymphocytes % 29.5 10/31/19 07:20 Monocytes % 10.5 10/31/19 07:20 Eosinophils % 0.6 10/31/19 07: Basophils % 0.0 10/31/19 07:20 Absolute Neutrophils 1.92 k/cumm (1.2-6.7) 10/31/19 07:20 Absolute Lymphocytes 0.96 k/cumm (1.2-3.4) L 10/31/19 07:20 Absolute Monocytes 0.34 k/cumm (0.11-0.7) 10/31/19 07:20 Absolute Eosinophils 0.02 k/cumm (0.0-0.7) 10/31/19 07: Absolute Basophils 0.00 k/cumm (0.0-0.2) 10/31/19 07:20 PT 9.6 sec (9.3-11.0) 11/01/19 06:51 INR 1.0 (0.9-1.1) 11/01/19 06:51 Sodium 135 mmol/L (136-145) L 11/01/19 06:51 Potassium 4.2 mmol/L (3.5-5.1) D 11/01/19 06:51 Chloride 100 mmol/L (98-107) 11/01/19 06:51 Carbon Dioxide 29.8 mmol/L (21.0-32.0) 11/01/19 06:51 Anion Gap 5.2 mmol/L (3-11) 11/01/19 06:51 BUN 5 mg/dL (7-18) L 11/01/19 06:51 Creatinine 0.94 mg/dL (0.55-1.02) 11/01/19 06:51 Estimated GFR/1.73 m2 58.37 (mL/min/1.73m2) 11/01/19 06:51 Glucose 113 mg/dL (74-106) H 11/01/19 06:51 Lactate 1.6 mmol/L (0.6-1.4) H 10/31/19 15:58 Calcium 8.6 mg/dL (8.5-10.1) 11/01/19 06:51 Magnesium 1.8 mg/dL (1.8-2.4) 11/01/19 06:51 Total Bilirubin 1.1 mg/dL (0.2-1.0) H 10/31/19 07:20 Conjugated Bilirubin 0.26 mg/dL (0.00-0.20) H 10/31/19 07:20 AST 40 U/L (15-37) H 10/31/19 07:20 ALT 30 U/L (14-59) 10/31/19 07:20 Alkaline Phosphatase 98 U/L (46-116) 10/31/19 07:20 Total Protein 5.9 g/dL (6.4-8.2) L 10/31/19 07:20 Albumin 3.1 g/dL (3.4-5.0) L 10/31/19 07:20 Lipase 57 U/L (73-393) 10/30/19 01:40 Procalcitonin 0.1 ng/mL 10/31/19 07:20 Ethyl Alcohol 81.4 mg/dL (<3) 10/30/19 01:40
[2019-11-01] MEDS: Loperamide 2 MG CAP PO (17:15)
[2019-11-01 19:25] VITALS: BP 148/87; PULSE 70; RESP 16; TEMP 37; O2SAT 94
[2019-11-01] MEDS: Melatonin 3 MG TAB PO (21:20)
[2019-11-01 23:52] VITALS: BP 155/83; PULSE 89; RESP 18; TEMP 37; O2SAT 97
[2019-11-02] MEDS: Acetaminophen 325 MG TAB 650 MG PO ×2 (02:02→13:35)
[2019-11-02] MEDS: Loperamide 2 MG CAP PO ×3 (02:05→23:05)
[2019-11-02] MEDS: Heparin 5,000 UNITS/ML VIAL 5000 UNITS SC ×3 (05:00→20:47)
[2019-11-02] MEDS: Pantoprazole 40 MG VIAL IVP (05:00)
[2019-11-02] MEDS: Normal Saline Flush 10 ML SYR IVP ×3 (05:01→15:39)
[2019-11-02 07:06] VITALS: BP 149/87; PULSE 82; RESP 16; TEMP 36.8; O2SAT 96
[2019-11-02 07:28] LABS: Abs Immature Grans 0.02 k/cumm (0.0-0.09); Absolute Basophil Count 0.01 k/cumm (0.0-0.2); Absolute Eosinophil Count 0.01 k/cumm (0.0-0.7); Absolute Lymphocyte Count 0.76 k/cumm (1.2-3.4); Absolute Neutrophil Count 1.81 k/cumm (1.2-6.7); Basophils % 0.3; Eosinophils % 0.3; HCT 32.1 % (36.0-46.0); HGB 9.5 g/dL (12.0-15.5); Immature Grans % 0.7 %; Lymphocytes % 26.1; Mean Corp. HGB Concentration 29.6 g/dL (32.0-36.0); Mean Corpuscular Hemoglobin 26.2 pg (27.0-33.0); Mean Corpuscular Volume 88.4 fL (80-95); Mean Platelet Volume 9.5 fL (8.0-11.0); Monocytes % 10.3; Neutrophils % 62.3; Platelet Count 193 x1000/uL (130-400); RBC 3.63 m/cumm (4.00-5.20); RBC Distribution Width 19.1 % (11.7-14.6); White Blood Cell Count 2.91 k/cumm (4.4-10.8)
[2019-11-02 07:41] LABS: Anion Gap 9.4 mmol/L (3-11); BUN 4 mg/dL (7-18); CO2 28.6 mmol/L (21.0-32.0); CREATININE 0.83 mg/dL (0.55-1.02); Calcium 9.3 mg/dL (8.5-10.1); Chloride 99 mmol/L (98-107); Glucose 116 mg/dL (74-106); Magnesium 1.4 mg/dL (1.8-2.4); Potassium 3.1 mmol/L (3.5-5.1); Sodium 137 mmol/L (136-145)
--- NOTE | 2019-11-02 09:29 | OT.INIE ---
Occupational Therapy Notes Inpatient Occupational Therapy Evaluation Date: 11/02/19 Referring Doctor:Laly Dumont MD OT Orders: Eval and Treat- Non Urgent Precautions: Fall, Standard PATIENT PROFILE/ADMITTING DIAGNOSIS: Pt is a 74 year old female who was admitted through the ER on 10/30/19 for c/o nausea, vomiting and diarrhea. Pt has a significant past medical history and was been admitted to [facility] frequently in the past year. Past Medical History: Alcohol abuse (Chronic) Alcoholic ketosis (Resolved) Allergic rhinitis (Chronic) Anemia (Chronic 12/20/16) Back pain, chronic (Chronic) Cataract (Chronic 11/07/15) Cervical radicular pain (Chronic) Chronic alcoholic gastritis (Chronic 10/12/17) Depression (Chronic) Elev transaminase/LDH (Chronic) Falling (Chronic) Genital herpes simplex (Chronic) GERD (gastroesophageal reflux disease) (Chronic) GI bleed (Chronic 12/20/16) Headache (Chronic) Hyperlipidemia (Chronic) Hypertension (Chronic) Macrocytosis (Chronic 09/26/14) Multiple rib fractures (Acute) Non-cardiac chest pain (Chronic 09/21/16) Osteoarthritis (Chronic) Osteopenia (Chronic) 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) Pleural effusion on left (Acute) Right rib fracture (Resolved) Sciatica (Chronic) Tubular adenoma of colon (Chronic 01/28/17) Urinary incontinence (Chronic) Wernicke encephalopathy (Chronic) Surgical History Bladder Surgery Colonoscopy - MAC (01/28/17) EGD - MAC (12/20/16) Ligation of fallopian tube Repair bladder injury, simple Social History/Home Situation: She reports that she lives in a private home and has a caregiver who comes into the home 2 hours per day. She reports that her caregiver (A) with laundry, grocery shopping and homecare tasks as well as HHOT since last admission to [facility]. Pt states that she takes a shower 2-3x per week. She states that she has a shower seat and what she considers a regular shower. She has a regular toilet and grab bars near her shower but they are removeable. She states that otherwise she feels she is (I) and is able to wash and dress herself. She states that she sometimes has difficulty with LE dressing but this comes and goes she states that she never knows how the day will be. She has a dog that she cares for and she reports that she is eager to return home. RAJI peters comes into her home every morning and she gets Meals from [employer] which she states they help her prepare her meals. Equipment owned/DME: grab bars, shower seat, FWW SUBJECTIVE: Pt was sitting in bed when OT arrived. She was agreeable to OT session. OBJECTIVE: General Observation: BP (B) UE, telemetry, IV (R) UE Mental Status: A&Ox3 Pain: c/o pain in back ROM: RUE AROM shoulder flexion limited to 80* with pain, elbow WNL, hand and digits WNL L UE AROM WFL with limited shoulder flexion to 110* STRENGTH: RUE Shoulder flexion 3-/5, bicep 3/5, tricep 3-/5, block sawyer is weak and symmetrical LUE Shoulder flexion 3-/5, bicep 3/5, tricep 3-/5, block sawyer is weak and symmetrical FUNCTIONAL MOBILITY/ADLS: DRESSING Dressing- sitting on side of bed pt was min (A) with don and doffing [facility] gown, mod (A) don and doffing (B) socks. She states that she gets (A) with this at home. Bathing- Pt denies. Grooming- Sitting on side of the bed (I) with brushing hair TOILETING- NT Eating- Sitting in bed with support pt was able to perform eating routine (I). BALANCE: Static sitting Normal Dynamic Sitting Good SPECIAL TESTS: Daily Activity Limitations Standardized Measure [facility] AM -PAC ?6 clicks? Daily Activity Inpatient Short Form: Raw score: 20 Standardized score: 42.03 CMS score: 38.32% INFORMED CONSENT/EDUCATION: Pt instructed in purpose of OT Consult and plan of care. ASSESSMENT: Patient is a 74-year-old female referred to occupational therapy services with diagnosis of chronic alcohol abuse, alcohol widthdrawal, nausea, vomiting and dehydration, nodule on lung. Patient presents with clinical signs and symptoms consistent with dx, as demonstrated by the following impairment level findings/functional limitations: Decreased functional activity tolerance, decreased (I) in her ADL/IADL routines, decreased functional mobility, decreased safety awareness, high risk of re-admission . Pt would benefit from skilled OT services for increased (I) in her ADL routines. AMPAC score 20, CMS score 38.32% Patient is assessed as a Moderate 79919 complexity based on the following: History: See Above Examination: See functional limitations as noted above Presentation: Evolving Decision Making: AMPAC score 20, CMS score 38.32% GOALS 1. Transfers- (S), FWW 2. Dressing sitting on side of bed (I) with UE don and doffing shirt, (I) with don and doffing pants 3. Bathing sitting in chair (I) UE/LE 4. Toileting on toilet (I) 5. Grooming- standing at sink pt will be able to stand at sink with FWW (I) with brushing teeth PLAN OF CARE/TREATMENT PLAN: 1x/day, 5 days/ week x 1week Initiate Occupational Therapy Services for bathing, dressing, grooming, toileting, eating, transfer training. DISCHARGE RECOMMENDATIONS home with continued HHOT/PT services. TREATMENT TIME/MINUTES/CODES 34582, 25 minutes (08:35) Yee Elizalde OTR/L [facility]
[2019-11-02] MEDS: Folic Acid 1 MG TAB PO (09:33)
[2019-11-02] MEDS: Venlafaxine 37.5 MG CAPCR PO (09:33)
[2019-11-02] MEDS: Sucralfate 1 GM TAB PO ×4 (09:33→20:46)
[2019-11-02] MEDS: amLODIPine 10 MG TAB PO (09:33)
[2019-11-02] MEDS: Thiamine 100 MG TAB PO (09:33)
[2019-11-02] MEDS: Gabapentin 300 MG CAP PO ×2 (09:33→20:47)
[2019-11-02] MEDS: Venlafaxine 150 MG CAPCR PO (09:33)
[2019-11-02] MEDS: Multivitamin TAB 1 TAB PO (09:33)
[2019-11-02] MEDS: Dicyclomine 10 MG CAP PO (09:33)
[2019-11-02] MEDS: Metoprolol 50 MG TAB PO ×2 (09:34→20:46)
[2019-11-02] MEDS: Ondansetron 4 MG/2 ML VIAL IVP (11:04)
[2019-11-02] MEDS: MAGNESIUM SULFATE 4 GM/100 ML BAG IVPB (11:06)
--- NOTE | 2019-11-02 11:27 | PT.INNT ---
Date of service: 11/02/19 Time of Service: 11:28 PT Notes Visit Reasons: ENTERITIS 11/02/2019 Refused x 2 this AM due to dizziness and then her stomach was bothering her. Odette Saul, LICENSED NUCLEAR OPERATOR
[2019-11-02 11:38] VITALS: BP 157/95; PULSE 91; RESP 19; TEMP 36.5; O2SAT 94
--- NOTE | 2019-11-02 15:14 | PT.INTREAT ---
Date of service: 11/02/19 Time of Service: 15:15 PT Notes Visit Reasons: ENTERITIS 11/02/2019 SUBJECTIVE: Leticia stating she has a headache this afternoon and is getting Tylenol for it. She is agreeable to PT. OBJECTIVE: Seated in her recliner. TRANSFERS Sit to stand: SBA Stand to sit: SBA GAIT Device: FWW Weight bearing: Full Assist: SBA Distance: 260' Deviation: Step through pattern ASSESSMENT: Pt moves well with PT this afternoon. She does require encouragement to participate. She would benefit from continued PT services to increase her activity tolerance. PLAN: Continue per POC. Treatment time: 15 [id number] Odette Saul PTA
[2019-11-02] MEDS: POTASSIUM CHLORIDE 20 MEQ/100 ML BAG 50 MEQ IVPB (15:39)
[2019-11-02 15:55] VITALS: BP 143/87; PULSE 76; RESP 18; TEMP 36.6; O2SAT 96
--- NOTE | 2019-11-02 16:17 | CMPROGNOTE_ITS ---
- If Service Date Differs Date of service: 11/02/19 Time of Service: 16:17 Care Management Progress Note S/O: Leticia was lying in bed when CM met with her. She expressed her concern about how she was treated in the ED upon a previous admission. CM will inform Risk Management of the complaint. CM introduced Leticia to Gracia, the new event promotions coordinator at [facility]. CM will fax a referral to see if admission at [facility] would be an option. CM will continue to follow. A: Leticia is a 74 year old female admitted to [facility] on 10/30/19 with Enteritis. P: Anticipate Leticia will likely return home with a resumption of services. She has a private caregiver, MOW and HH nursing and OT. She will follow up with her PCP and discharge plan of care and transport via [facility]. CM will continue to follow and support Leticia and her discharge planning needs.
[2019-11-02 19:17] VITALS: BP 148/82; PULSE 85; RESP 18; TEMP 36.6; O2SAT 95
--- NOTE | 2019-11-02 19:47 | W.PM.PROGNOT ---
Date of Service Date of service: 11/02/19 Time of Service: 18:30 Assessment and Plan Assessment and plan (1) Nausea, vomiting and diarrhea: Status: Acute Assessment and plan: With evidence of colitis on CT. C. Diff negative. Still quite distended, but patient states she is improving. Continue diet as tolerated. Continue prn imodium. (2) Humerus fracture: Status: Chronic Assessment and plan: LUE, chronic. Sling rx'ed. Continue OT. (3) Alcoholic gastritis without bleeding: Status: Acute Assessment and plan: Continue PPI/carafate (4) Dehydration: Status: Resolved Assessment and plan: Doing well off IVF. (5) Chronic alcoholism: Status: Chronic Assessment and plan: Monitor on CIWA. (6) Presacral mass: Status: Acute Assessment and plan: For follow up as outpatient if desires. (7) Incidental lung nodule, greater than or equal to 8mm: Status: Acute Assessment and plan: The patient has failed to follow up with [facility]. Did have an attempt in bx, but there was a complication. At this point, the patient can choose to follow up with [facility] thoracic surgery if she so desires - however, needs to stop drinking first, and that is unlikely to happen (8) Hypokalemia: Status: Resolved Assessment and plan: Replete (9) Hypomagnesemia: Status: Acute Assessment and plan: replete (10) DVT prophylaxis: Status: Acute Assessment and plan: SC heparin (11) Discharge planning issues: Status: Acute Assessment and plan: DNR/DNI I think she is nearing discharge Subjective Subjective Interval history since last seen: Leticia states she feels a little better today. She still says she had diarrhea today, but it got better with immodium. Had nausea, but no vomiting. Denies abdominal pain. Denies dizziness, chest pain, shortness of breath. Does not want to back off the diet. Exam Narrative Exam Narrative: General: Pleasant elderly female, laying comfortably in bed, eating dinner, A&Ox3 HEENT: EOMI, MMM Heart: RRR, no m/r/g Lungs: CTAB Abdomen: soft, nontender, distended, +BS Extremities: no e/c/c BLE's Objective Objective Clinical Data: Abnormal lab results 11/02/19 11/02/19 Range/Units 06:40 06:40 WBC 2.91 L (4.4-10.8) k/cumm RBC 3.63 L (4.00-5.20) m/cumm Hgb 9.5 L (12.0-15.5) g/dL Hct 32.1 L (36.0-46.0) % MCH 26.2 L (27.0-33.0) pg MCHC 29.6 L (32.0-36.0) g/dL RDW 19.1 H (11.7-14.6) % Absolute Lymphocytes 0.76 L (1.2-3.4) k/cumm Potassium 3.1 L D (3.5-5.1) mmol/L BUN 4 L (7-18) mg/dL Glucose 116 H (74-106) mg/dL Magnesium 1.4 L (1.8-2.4) mg/dL Vital Signs Temperature 36.6 C 11/02/19 19:17 Temperature Source Tympanic 11/02/19 19:17 Pulse 85 11/02/19 19:17 Pulse Rhythm Regular 11/02/19 17:50 Respiratory Rate 18 11/02/19 19:17 Respiratory Effort Non-Labored 11/02/19 17:50 Respiratory Depth Normal 11/02/19 17:50 Respiratory Pattern Normal 11/02/19 17:50 Blood Pressure 148/82 H 11/02/19 19:17 Blood Pressure Mean 94 10/30/19 05:01 Pulse Oximetry 95 11/02/19 19:17 Oxygen Delivery Method Room Air 11/02/19 19:17 Oxygen Flow Rate 0 11/02/19 19:17 Pain Level 0 11/02/19 19:17 Intake & Output 11/01/19 11/02/19 11/02/19 23:59 11:59 23:59 Intake Total 2320.000 / 3800.000 1331949 Balance 2320.000 / 3800.000 1329 Intake: IV 1000.000 / 2000.000 130 / 130 Oral 1320 / 1800 1330 / 1820 490 / 1820 Other: Urine Color Yellow Yellow Yellow Urine Appearance Clear Clear Clear Urine Odor Normal Comment Incontinent of copious amount of urine pt had a very large incontinent episoide Stool Size Moderate Moderate Stool Characteristics Soft Soft Liquid Mucoid Brown Brown Voiding Methods Toilet Toilet Toilet Diaper Incontinent Incontinent Laboratory Results WBC 2.91 k/cumm (4.4-10.8) L 11/02/19 06:40 RBC 3.63 m/cumm (4.00-5.20) L 11/02/19 06:40 Hgb 9.5 g/dL (12.0-15.5) L 11/02/19 06:40 Hct 32.1 % (36.0-46.0) L 11/02/19 06:40 MCV 88.4 fL (80-95) 11/02/19 06:40 MCH 26.2 pg (27.0-33.0) L 11/02/19 06:40 MCHC 29.6 g/dL (32.0-36.0) L 11/02/19 06:40 RDW 19.1 % (11.7-14.6) H 11/02/19 06:40 Plt Count 193 x1000/uL (130-400) 11/02/19 06:40 MPV 9.5 fL (8.0-11.0) 11/02/19 06:40 Immature Gran % 0.7 % 11/02/19 06:40 Neutrophils % 62.3 11/02/19 06:40 Lymphocytes % 26.1 11/02/19 06:40 Monocytes % 10.3 11/02/19 06:40 Eosinophils % 0.3 11/02/19 06:40 Basophils % 0.3 11/02/19 06:40 Absolute Neutrophils 1.81 k/cumm (1.2-6.7) 11/02/19 06:40 Absolute Lymphocytes 0.76 k/cumm (1.2-3.4) L 11/02/19 06:40 Absolute Monocytes 0.30 k/cumm (0.11-0.7) 11/02/19 06:40 Absolute Eosinophils 0.01 k/cumm (0.0-0.7) 11/02/19 06:40 Absolute Basophils 0.01 k/cumm (0.0-0.2) 11/02/19 06:40 PT 9.6 sec (9.3-11.0) 11/01/19 06:51 INR 1.0 (0.9-1.1) 11/01/19 06:51 Sodium 137 mmol/L (136-145) 11/02/19 06:40 Potassium 3.1 mmol/L (3.5-5.1) L D 11/02/19 06:40 Chloride 99 mmol/L (98-107) 11/02/19 06:40 Carbon Dioxide 28.6 mmol/L (21.0-32.0) 11/02/19 06:40 Anion Gap 9.4 mmol/L (3-11) 11/02/19 06:40 BUN 4 mg/dL (7-18) L 11/02/19 06:40 Creatinine 0.83 mg/dL (0.55-1.02) 11/02/19 06:40 Estimated GFR/1.73 m2 >= 60.00 (mL/min/1.73m2) 11/02/19 06:40 Glucose 116 mg/dL (74-106) H 11/02/19 06:40 Lactate 1.6 mmol/L (0.6-1.4) H 10/31/19 15:58 Calcium 9.3 mg/dL (8.5-10.1) 11/02/19 06:40 Magnesium 1.4 mg/dL (1.8-2.4) L 11/02/19 06:40 Total Bilirubin 1.1 mg/dL (0.2-1.0) H 10/31/19 07:20 Conjugated Bilirubin 0.26 mg/dL (0.00-0.20) H 10/31/19 07:20 AST 40 U/L (15-37) H 10/31/19 07:20 ALT 30 U/L (14-59) 10/31/19 07:20 Alkaline Phosphatase 98 U/L (46-116) 10/31/19 07:20 Total Protein 5.9 g/dL (6.4-8.2) L 10/31/19 07:20 Albumin 3.1 g/dL (3.4-5.0) L 10/31/19 07:20 Lipase 57 U/L (73-393) 10/30/19 01:40 Procalcitonin 0.1 ng/mL 10/31/19 07:20 Ethyl Alcohol 81.4 mg/dL (<3) 10/30/19 01:40
[2019-11-02] MEDS: POTASSIUM CHLORIDE 20 MEQ/100 ML BAG 25 MEQ IVPB (19:53)
[2019-11-02] MEDS: Melatonin 3 MG TAB PO (20:46)
[2019-11-02 23:40] VITALS: BP 145/82; PULSE 95; RESP 19; TEMP 36.8; O2SAT 99
[2019-11-03] MEDS: Acetaminophen 325 MG TAB 650 MG PO ×2 (03:17→09:57)
[2019-11-03] MEDS: Heparin 5,000 UNITS/ML VIAL 5000 UNITS SC ×2 (03:18→13:17)
[2019-11-03] MEDS: Normal Saline Flush 10 ML SYR IVP (06:24)
[2019-11-03] MEDS: Pantoprazole 40 MG VIAL IVP (06:24)
[2019-11-03 07:10] LABS: Abs Immature Grans 0.02 k/cumm (0.0-0.09); Absolute Basophil Count 0.01 k/cumm (0.0-0.2); Absolute Eosinophil Count 0.01 k/cumm (0.0-0.7); Absolute Lymphocyte Count 0.76 k/cumm (1.2-3.4); Absolute Monocyte Count 0.37 k/cumm (0.11-0.7); Absolute Neutrophil Count 1.59 k/cumm (1.2-6.7); Basophils % 0.4; Eosinophils % 0.4; HCT 29.4 % (36.0-46.0); HGB 8.9 g/dL (12.0-15.5); Immature Grans % 0.7 %; Lymphocytes % 27.5; Mean Corp. HGB Concentration 30.3 g/dL (32.0-36.0); Mean Corpuscular Hemoglobin 26.7 pg (27.0-33.0); Mean Corpuscular Volume 88.3 fL (80-95); Mean Platelet Volume 8.6 fL (8.0-11.0); Monocytes % 13.4; Neutrophils % 57.6; Platelet Count 178 x1000/uL (130-400); RBC 3.33 m/cumm (4.00-5.20); RBC Distribution Width 19.4 % (11.7-14.6); White Blood Cell Count 2.76 k/cumm (4.4-10.8)
[2019-11-03 07:40] VITALS: BP 158/88; PULSE 79; RESP 16; TEMP 37; O2SAT 98
[2019-11-03 07:41] LABS: BUN 4 mg/dL (7-18); CREATININE 0.85 mg/dL (0.55-1.02); Calcium 8.2 mg/dL (8.5-10.1); Chloride 103 mmol/L (98-107); Glucose 109 mg/dL (74-106); Magnesium 1.9 mg/dL (1.8-2.4); Potassium 3.1 mmol/L (3.5-5.1); Sodium 139 mmol/L (136-145)
[2019-11-03] MEDS: Multivitamin TAB 1 TAB PO (08:13)
[2019-11-03] MEDS: amLODIPine 10 MG TAB PO (08:13)
[2019-11-03] MEDS: Venlafaxine 150 MG CAPCR PO (08:13)
[2019-11-03] MEDS: Folic Acid 1 MG TAB PO (08:13)
[2019-11-03] MEDS: Metoprolol 50 MG TAB PO (08:13)
[2019-11-03] MEDS: Sucralfate 1 GM TAB PO ×2 (08:13→10:58)
[2019-11-03] MEDS: Gabapentin 300 MG CAP PO (08:13)
[2019-11-03] MEDS: Thiamine 100 MG TAB PO (08:13)
[2019-11-03] MEDS: Venlafaxine 37.5 MG CAPCR PO (08:13)
[2019-11-03] MEDS: Potassium Chloride 20 MEQ TABCR 40 MEQ PO ×2 (09:52→13:48)
--- NOTE | 2019-11-03 10:37 | DSE_ITS ---
Date of service: 11/03/19 Time of Service: 10:37 DS: Diagnosis Discharge Diagnosis (1) Nausea, vomiting and diarrhea: Start date: 11/03/19 Start time: 10:38 Status: Acute Asessment and Plan: Found to have colitis by CT, not infectious, cdiff negative. Loperamide for loose stool. Tolerating diets no vomiting. Bentayl for abdominal pain. Carafate and PPI, she has history of alcohol dependence. (2) Humerus fracture: Start date: 11/03/19 Start time: 10:39 Status: Chronic Asessment and Plan: LUE chronic, sling for comfort. PT/OT as oupatient. (3) Alcoholic gastritis without bleeding: Start date: 11/03/19 Start time: 10:42 Status: Ruled-out Asessment and Plan: Continue PPI, carafate (4) Dehydration: Start date: 11/03/19 Start time: 10:42 Status: Resolved Asessment and Plan: Secondary to colitis. Resolved. (5) Chronic alcoholism: Start date: 11/03/19 Start time: 10:42 Status: Chronic Asessment and Plan: Leticia will most likely go home and drink, spoke with her about sustaining from alcohol. She states she can go days without drinking, then she will get bored and drink. (6) Presacral mass: Start date: 11/03/19 Start time: 10:44 Status: Acute Asessment and Plan: Will need to have follow up for mass at [facility]. (7) Incidental lung nodule, greater than or equal to 8mm: Start date: 11/03/19 Start time: 10:45 Status: Acute Asessment and Plan: Will also need follow up as an outpatient for nodule. (8) Hypokalemia: Start date: 11/03/19 Start time: 10:45 Status: Acute Asessment and Plan: Likely from diarrhea. Recommend taking daily potassium supplement until diarrhea gets better and increase diet potassium, eat bananas, potatoes. Repeat potassium level on Tuesday Discharge Plan Disposition Patient Disposition: HOME Condition: Improving Discharge Details Chief Complaint: Nausea/Vomit/Diar Clinical Impression: Nausea, vomiting and diarrhea, High anion gap metabolic acidosis, Lactic acidosis Reason For Visit: ENTERITIS Admit Date/Time: 10/30/19 04:24 Admit Provider: Saeed Cosme Attending Provider: Saeed Cosme Primary Care Provider: Lavelle Galindo ED Provider: DaoWes [facility] Course Hospital Course: 74 y.o female with PMH Alcohol dependence, Humerus fracture, elbow sprain, sacaral mass, alcoholic gastritis, HTN, pneumonia, AMBER, anemia, UTI admitted to m/s for diarrhea, CT scan revealing colitis, c-diff negative. She initially presented with nausea and vomiting, abdominal pain. She was placed on IVF with zofran for nausea, bentayl for abdominal pain. Over the course of hospitalization she was able to tolerate po intake, fluids dcd, pain was managed with bentayl. Started on loperamide. CT scan also revealing for stable presacral mass. She was suppose to follow up at [facility] though she failed to follow up with [facility]. Did have an attempt in bx, but there was a complication. She will need to follow up for further work up. She continues to have hypokalemia, secondary to diarrhea. Continue po potassium, she states she has some pills at home until diarrhea subsides. Replete today. Eat a diet rich in potassium and repeat potassium level on Tuesday. Continue carafate and PPI. She is taking po, pain is improved, she feels well enough to get discharged home. She is being discharged home today. She will be given bentayl, zofran, loperamide and follow up with PCP in 1 week. Resume nursing services and she will have new PT/OT. Home Meds and New Rx's Prescriptions: New promethazine 25 mg tablet 25 mg PO Q6H PRN (Reason: nausea and vomiting) Qty: 10 RF: 0 loperamide 2 mg capsule 2 mg PO Q4H PRN (Reason: loose stool) Qty: 20 RF: 0 dicyclomine 10 mg capsule 10 mg PO QID Qty: 10 RF: 0 Continued meclizine 25 mg tablet 25 mg PO TID PRN (Reason: dizziness) Qty: 30 RF: 1 venlafaxine 37.5 mg capsule,extended release 24hr 37.5 mg PO DAILY Qty: 30 RF: 11 venlafaxine 150 mg capsule,extended release 24hr 150 mg PO DAILY Qty: 30 RF: 11 ipratropium-albuterol 0.5 mg-3 mg(2.5 mg base)/3 mL solution for nebulization 3 ml IH QID PRN (Reason: shortness of breath) Qty: 90 RF: 3 hydrochlorothiazide 12.5 mg tablet 12.5 mg PO DAILY Qty: 90 RF: 3 gabapentin 300 mg capsule 300 mg PO BID Qty: 90 RF: 5 metoprolol tartrate 50 mg tablet 50 mg PO BID Qty: 180 RF: 3 sennosides [Senokot] 8.6 mg tablet 8.6 mg PO BID Qty: 180 RF: 3 sucralfate 1 gram tablet 1 g PO AC & HS Qty: 120 RF: 5 magnesium oxide 400 mg magnesium capsule 400 mg PO BID Qty: 180 RF: 3 amlodipine 10 mg tablet 10 mg PO DAILY Qty: 90 RF: 3 thiamine mononitrate (vit B1) [Vitamin B-1 (mononitrate)] 100 mg tablet 100 mg PO DAILY Qty: 90 RF: 3 pantoprazole 40 mg tablet,delayed release (DR/EC) 40 mg PO DAILY Qty: 90 RF: 3 Ensure Active High Protein Liquid 414 ml PO DAILY Qty: 89358 RF: 11 multivitamin [Multiple Vitamins] Tablet 1 tab PO DAILY Qty: 90 RF: 3 potassium chloride [Klor-Con M10] 10 mEq tablet,ER particles/crystals 10 meq PO DAILY Qty: 90 RF: 3 folic acid 1 mg Tablet 1 mg PO DAILY Qty: 14 RF: 0 multivitamin [Multiple Vitamins] Tablet 1 tab PO DAILY Qty: 0 RF: 0 Refresh Plus 0.5 % Dropperette 1 drp OU Q4H WHILE AWAKE Qty: 30 RF: 0 fluticasone propionate 50 mcg/actuation [place],Suspension 1 spray NS DAILY Qty: 15.8 RF: 0 ondansetron 4 mg tablet,disintegrating 4 mg PO Q6H PRN (Reason: nausea and vomiting) Qty: 20 RF: 0 bisacodyl 5 mg Tablet,Delayed Release (Dr/Ec) 10 mg PO .q72h prn PRN (Reason: constipation - if no BM In 3 days) Qty: 10 RF: 0 Discontinued docusate sodium [Colace] 100 mg Capsule 100 mg PO BID Qty: 60 RF: 0 Discharge Instructions Instructions: Irritable Bowel Syndrome (DC), Hypokalemia (DC), Acute Nausea and Vomiting (DC), Proximal Humerus Fracture (DC) Additional Instructions: Take potassium daily, eat a diet rich in potassium. Continue to take bentyl and loperamide until diarrhea improves. Follow up with PCP in 1 week Recheck potassium level on Tuesday Resume nursing services, new PT/OT Keep sling in arm when up and ambulating. New prescriptions: Bentyl 10 mg may take four times a day for abdominal pain Take phenergan 25 mg for nausea. Activity:: Activity as Tolerated Equipment/Supplies:: No Equipment Needed Diet:: As Tolerated Discharge Orders Discharge Orders: Discharge Order (Routine); Ordered 11/03/19 Ordered By: Pat Navarro Other Ambulatory Orders: Basic Metabolic Panel (Routine) Location: None Selected Ordered By: Pat Navarro DS: Summary Status at Discharge Functional status at discharge: independent ambulation Overall status at discharge: patient is progressing back to baseline Mental Status: mental status grossly normal Speech and Movement: speech and movement normal Mood: congruent mood Affect: normal affect Exam Narrative Exam Narrative: Const: Younger than stated age female laying in bed AAOx3 Eyes: PERRLA, Neck: no jvd, no lymphedema. Resp: even unlabored, able to speak sentences without difficulty. Clear to auscultation. Cardio: RRR no murmur appreciated. GI: pain improving bsx4, loose stool Extrem: no clubbing, cyanosis or edema. Psych Mental Status: mental status grossly normal Speech and Movement: speech and movement normal Mood: congruent mood Affect: normal affect DS: Data Vitals/I&O Vitals and I&O: Vital Signs Temperature 37 C 11/03/19 07:40 Temperature Source Tympanic 11/03/19 07:40 Pulse 79 11/03/19 07:40 Pulse Rhythm Regular 11/03/19 03:20 Respiratory Rate 16 11/03/19 07:40 Respiratory Effort Non-Labored 11/03/19 03:20 Respiratory Depth Normal 11/03/19 03:20 Respiratory Pattern Normal 11/03/19 03:20 Blood Pressure 158/88 H 11/03/19 07:40 Blood Pressure Mean 94 10/30/19 05:01 Pulse Oximetry 98 11/03/19 07:40 Oxygen Delivery Method Room Air 11/03/19 07:40 Oxygen Flow Rate 0 11/03/19 07:40 Pain Level 3 11/03/19 09:57 Comment 11/02/19 23:40 Intake & Output 11/02/19 11/02/19 11/03/19 11:59 23:59 11:59 Intake Total 1330 / 2130.000 800.000 / 2130.000 500 / 500 Balance 1330 / 2130.000 800.000 / 2130.000 500 / 500 Intake: IV 310.000 / 310.000 Oral 1330 / 1820 490 / 1820 500 / 500 Other: Urine Color Yellow Yellow Yellow Urine Appearance Clear Clear Clear Urine Odor Normal Normal Comment pt had a very large incontinent episoide Stool Size Moderate Moderate Moderate Stool Characteristics Soft Soft Soft Mucoid Brown Brown Brown Voiding Methods Toilet Diaper Toilet Incontinent Diaper Data Completed and Pending Completed studies during hospitalization [Text1]: Exam(s) a CT:CT abdomen & pelvis w EXAM: CT ABDOMEN PELVIS W CLINICAL HISTORY: diarrhea, abdominal pain, elevated lactate TECHNIQUE: Post IV contrast. Without oral contrast. COMPARISON: CT CHEST/ABD/PEL W from 07/22/2019 FINDINGS: There are old bilateral rib fractures. The heart size is normal. Mild atelectasis or scarring is seen at the lung bases. The liver shows diffuse fatty infiltration. There is a small hiatal hernia. The gallbladder, spleen, pancreas and adrenals are unremarkable. There are several bilateral renal cysts. There is mild to moderate aortic calcification. The aorta is normal in diameter. The bladder, ovaries and uterus are unremarkable. There are small bilateral fatty containing inguinal hernias. Colon is mainly collapsed. There is some wall thickening which appears diffuse, greater at the ascending colon. Pre sacral soft tissue mass is seen, not significantly changed. There is no ascites. No adenopathy is seen. Degenerative changes are again noted in the spine. IMPRESSION: Mild diffuse colonic wall thickening, consistent with colitis. No evidence of bowel obstruction. Stable presacral mass. Labs on day of discharge: Labs from last 24 hours 11/03/19 11/03/19 06:20 06:20 WBC 2.76 L RBC 3.33 L Hgb 8.9 L Hct 29.4 L MCV 88.3 MCH 26.7 L MCHC 30.3 L RDW 19.4 H Plt Count 178 MPV 8.6 Immature Gran % 0.7 Neutrophils % 57.6 Lymphocytes % 27.5 Monocytes % 13.4 Eosinophils % 0.4 Basophils % 0.4 Absolute Neutrophils 1.59 Absolute Lymphocytes 0.76 L Absolute Monocytes 0.37 Absolute Eosinophils 0.01 Absolute Basophils 0.01 Sodium 139 Potassium 3.1 L Chloride 103 Carbon Dioxide 28.0 Anion Gap 8.0 BUN 4 L Creatinine 0.85 Estimated GFR/1.73 m2 >= 60.00 Glucose 109 H Calcium 8.2 L Magnesium 1.9 [facility] Medical History Alcohol abuse (Chronic) Alcoholic ketosis (Resolved) Allergic rhinitis (Chronic) Anemia (Chronic 12/20/16) Back pain, chronic (Chronic) CAP (community acquired pneumonia) (Resolved) Cataract (Chronic 11/07/15) Cervical radicular pain (Chronic) neck pain and DJD [facility] Chronic alcoholic gastritis (Chronic 10/12/17) pls refrain from alcohol Corneal ulcer, right (Inactive ~08/23/18) 08/23/18; UV-kb Depression (Chronic) Elev transaminase/LDH (Chronic) due to alcohol Fall (Acute) Falling (Chronic) Genital herpes simplex (Chronic) recurrent gential; suppressive Valtrex GERD (gastroesophageal reflux disease) (Chronic) GI bleed (Resolved 12/20/16) Headache (Resolved) Hyperlipidemia (Chronic) Hypertension (Chronic) high today; she will check readings at home 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 Multiple rib fractures (Resolved) 03/11/19 [facility] Non-cardiac chest pain (Resolved 09/21/16) [facility] 09/21/16 NEGATIVE MP Osteoarthritis (Chronic) Osteopenia (Chronic) 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) Peripheral edema (Acute) Pleural effusion on left (Resolved) 03/11/19 [facility] Right rib fracture (Resolved) Sciatica (Chronic) right, epidural injuections [facility] Tendinitis of left rotator cuff (Inactive) Tubular adenoma of colon (Chronic 01/28/17) Urinary incontinence (Chronic) 01/24/13 urethral suspension and sling at [facility] (bladder suspension 1991) Wernicke encephalopathy (Chronic) Surgical History Bladder Surgery suspension Colonoscopy - [facility] (01/28/17) EGD - [facility] (04/24/17) History of bilateral ligation of fallopian tubes (Inactive) Ligation of fallopian tube Repair bladder injury, simple Family History Mother No problems noted. Father , DROWNED at age 50. No problems noted. Sister Personal history of malignant neoplasm MELANOMA Sister No problems noted. Grandfather Personal history of malignant neoplasm STOMACH Grandfather Personal history of malignant neoplasm PROSTATE Grandmother Heart disease NE Acute ill-defined cerebrovascular disease Grandmother Personal history of malignant neoplasm UTERINE Aunt , NE Heart disease NE Aunt , NE Heart disease Brother No problems noted. Social History Smoking/Tobacco Use Status: Former Tobacco Use Alcohol Intake: current Alcohol Intake frequency: 3 or more drinks per day Alcohol type: hard liquor Drug use: Never Substance use type: does not use Details: last drink at midnight Current gender identity: female Do you feel safe at home: Yes Do you feel safe in your relationship?: Yes Additional Social history:
--- NOTE | 2019-11-03 12:01 | PT.INNT ---
PT Notes Visit Reasons: ENTERITIS Pt refused PT and states that she is being D/C.
[2019-11-03] MEDS: Loperamide 2 MG CAP PO (13:48)
--- NOTE | 2019-11-03 16:36 | CMDISCH_ITS ---
LACE Index Scoring Tool - Questions: Length of Stay (in days): 4 - 6 (16) Acuity (Admit via E.D.?): Yes Comorbidities: Dementia, Liver or Renal Disease E.D. Visits: 19 - Answers: Total Score: 16 Risk of Readmission: High Risk Care Management Discharge Reason for Hospitalization: Enteritis Discharge Plan: Leticia will return home with a resumption of services with an addition of PT through [facility]. She has a private caregiver, MOW and HH nursing and OT. She will follow up with her PCP and discharge plan of care and transport via [facility]; coordinated by this financial writer. Patient/Family Education Needs: Review discharge instructions, discuss Ask Me Three. Services Needed at Discharge: Home Health Care Services (Resume, add PT), Transportation ([facility] coordinated by this financial writer)
--- NOTE | 2019-11-05 07:47 | OT.INDS ---
Date of service: 11/05/19 Time of Service: 07:47 Occupational Therapy Notes Occupational Therapy Inpatient Discharge Summary Date: 11/05/19 Dates of Service: 11/02/19-11/05/19 Referring Doctor:Laly Dumont MD OT Orders: Eval and Treat- Non Urgent Precautions: Fall, Standard PATIENT PROFILE/ADMITTING DIAGNOSIS: Pt is a 74 year old female who was admitted through the ER on 10/30/19 for c/o nausea, vomiting and diarrhea. Pt has a significant past medical history and was been admitted to [facility] frequently in the past year. Past Medical History: Alcohol abuse (Chronic) Alcoholic ketosis (Resolved) Allergic rhinitis (Chronic) Anemia (Chronic 12/20/16) Back pain, chronic (Chronic) Cataract (Chronic 11/07/15) Cervical radicular pain (Chronic) Chronic alcoholic gastritis (Chronic 10/12/17) Depression (Chronic) Elev transaminase/LDH (Chronic) Falling (Chronic) Genital herpes simplex (Chronic) GERD (gastroesophageal reflux disease) (Chronic) GI bleed (Chronic 12/20/16) Headache (Chronic) Hyperlipidemia (Chronic) Hypertension (Chronic) Macrocytosis (Chronic 09/26/14) Multiple rib fractures (Acute) Non-cardiac chest pain (Chronic 09/21/16) Osteoarthritis (Chronic) Osteopenia (Chronic) 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) Pleural effusion on left (Acute) Right rib fracture (Resolved) Sciatica (Chronic) Tubular adenoma of colon (Chronic 01/28/17) Urinary incontinence (Chronic) Wernicke encephalopathy (Chronic) Surgical History Bladder Surgery Colonoscopy - [facility] (01/28/17) EGD - [facility] (12/20/16) Ligation of fallopian tube Repair bladder injury, simple Social History/Home Situation: She reports that she lives in a private home and has a caregiver who comes into the home 2 hours per day. She reports that her caregiver (A) with laundry, grocery shopping and homecare tasks as well as HHOT since last admission to [facility]. Pt states that she takes a shower 2-3x per week. She states that she has a shower seat and what she considers a regular shower. She has a regular toilet and grab bars near her shower but they are removeable. She states that otherwise she feels she is (I) and is able to wash and dress herself. She states that she sometimes has difficulty with LE dressing but this comes and goes she states that she never knows how the day will be. She has a dog that she cares for and she reports that she is eager to return home. HH aidilnda comes into her home every morning and she gets Meals from [employer] which she states they help her prepare her meals. Equipment owned/DME: grab bars, shower seat, FWW SUBJECTIVE: NT OBJECTIVE: *This document serves as a summary of care, no skilled OT services provided for this documentation. ROM: RUE AROM shoulder flexion limited to 80* with pain, elbow WNL, hand and digits WNL L UE AROM WFL with limited shoulder flexion to 110* STRENGTH: RUE Shoulder flexion 3-/5, bicep 3/5, tricep 3-/5, cigar tobacco processing supervisor is weak and symmetrical LUE Shoulder flexion 3-/5, bicep 3/5, tricep 3-/5, cigar tobacco processing supervisor is weak and symmetrical FUNCTIONAL MOBILITY/ADLS: DRESSING Dressing- sitting on side of bed pt was min (A) with don and doffing [facility] gown, mod (A) don and doffing (B) socks. She states that she gets (A) with this at home. Bathing- Pt denies. Grooming- Sitting on side of the bed (I) with brushing hair TOILETING- NT Eating- Sitting in bed with support, pt was able to perform eating routine (I). BALANCE: Static sitting Normal Dynamic Sitting Good ASSESSMENT: Patient is a 74-year-old female referred to occupational therapy services with diagnosis of chronic alcohol abuse, alcohol widthdrawal, nausea, vomiting and dehydration, nodule on lung. Pt was seen for OT consult only and OT was unable to assess pts progress towards goals based on discharge. Pt was transitioned home with services. GOALS- Unable to assess as pt was seen for OT consult only. 1. Transfers- (S), FWW 2. Dressing sitting on side of bed (I) with UE don and doffing shirt, (I) with don and doffing pants 3. Bathing sitting in chair (I) UE/LE 4. Toileting on toilet (I) 5. Grooming- standing at sink pt will be able to stand at sink with FWW (I) with brushing teeth PLAN OF CARE/TREATMENT PLAN: Discharge from skilled OT services. DISCHARGE RECOMMENDATIONS home with continued HHOT/PT services. TREATMENT TIME/MINUTES/CODES N/A Yee Elizalde OTR/L [facility]
--- NOTE | 2019-11-05 12:55 | PT.INDS ---
Date of service: 11/05/19 PT Notes Visit Reasons: ENTERITIS Inpatient Physical Therapy Discharge Summary Dates: 11/05/2019 Dates of Service: 10/30/2019 through 11/02/2019 This is a clinical summary of care provided on the duration of dates listed above. No charge was made in the completion of this documentation. Referring Doctor: Laly Dumont MD PT Orders: PT CONSULT: Limited ability.? Precautions: Fall. Contact and Droplet precautions. Activity as tolerated. Patient Profile/Admitting Diagnosis: Patient is a 74-year-old female with past medical history significant for ETOH abuse, back pain, depression, and frequent falling who presented to the ED today with chief presentation of nausea, vomiting, and diarrhea. Patient has a diagnosis of enteritis with referral sent therapy to address impairments in mobility ADL performance. PMHX: Medical History Alcohol abuse (Chronic) Alcoholic ketosis (Resolved) Allergic rhinitis (Chronic) Anemia (Chronic 12/20/16) Back pain, chronic (Chronic) CAP (community acquired pneumonia) (Resolved) Cataract (Chronic 11/07/15) Cervical radicular pain (Chronic) neck pain and [facility] Chronic alcoholic gastritis (Chronic 10/12/17) pls refrain from alcohol Corneal ulcer, right (Inactive ~08/23/18) 08/23/18; [facility] Depression (Chronic) Elev transaminase/LDH (Chronic) due to alcohol Fall (Acute) Falling (Chronic) Genital herpes simplex (Chronic) recurrent genital; suppressive Valtrex GERD (gastroesophageal reflux disease) (Chronic) GI bleed (Resolved 12/20/16) Headache (Resolved) Hyperlipidemia (Chronic) Hypertension (Chronic) high today; she will check readings at home 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 Multiple rib fractures (Resolved) 03/11/19 [facility] Non-cardiac chest pain (Resolved 09/21/16) [facility] [place] 09/21/16 NEGATIVE MP Osteoarthritis (Chronic) Osteopenia (Chronic) 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) Peripheral edema (Acute) Pleural effusion on left (Resolved) 03/11/19 [facility] Right rib fracture (Resolved) Sciatica (Chronic) right, epidural injuections [facility] Tendinitis of left rotator cuff (Inactive) Tubular adenoma of colon (Chronic 01/28/17) Urinary incontinence (Chronic) 01/24/13 urethral suspension and sling at [facility] [place] (bladder suspension 1991) Wernicke encephalopathy (Chronic) Surgical History Bladder Surgery suspension Colonoscopy - MAC (01/28/17) EGD - MAC (12/20/16) History of bilateral ligation of fallopian tubes (Inactive) Ligation of fallopian tube Repair bladder injury, simple Colonoscopy - MAC (01/28/17) EGD - MAC (12/20/16) Ligation of fallopian tube Repair bladder injury, simple Social History/Home Situation: Leticia lives in a private home in [place]. She has a caregiver who comes in daily 5 days per week for 2 hours each time to assist with laundry, minor house chores, and grocery shopping. Patient is independent with MRADLs using a straight cane. She has a walker which she states she does not use often. She receives meals on wheels. She no longer drives. Equipment Owned/DME: FWW, SC, grab bars, emergency alert device Subjective: NT Objective: General Observation: NT Mental Status:NT Pain: NT ROM: Right Upper Extremity: Shoulder Flexion allows up to 90 degrees. Shoulder abduction allows up to 90 degrees. Elbow flexion WFL. Wrist flexion WFL. Functional opening and closing of hand WFL. Left Upper Extremity: Shoulder Flexion allows up to 90 degrees. Shoulder abduction allows up to 90 degrees. Elbow flexion WFL. Wrist flexion WFL. Functional opening and closing of hand WFL. Right Lower Extremity: Hip flexion WFL. Hip abduction WFL. Knee flexion WFL. Ankle dorsiflexion WFL. Ankle plantarflexion WFL. Left Lower Extremity: Hip flexion WFL. Hip abduction WFL. Knee flexion WFL. Ankle dorsiflexion WFL. Ankle plantarflexion WFL. Strength: Right Upper Extremity: Shoulder flexors 3-/5. Shoulder abductors 3-/5. Elbow flexors 4/5. Elbow extensors 4/5. Neonatal Critical Care Nurse strong. Left Upper Extremity: Shoulder flexors 3-/5. Shoulder abductors 3-/5. Elbow flexors 4/5. Elbow extensors 4/5. Neonatal Critical Care Nurse strong. Right Lower Extremity: Hip flexors 4/5. Hip abductors 4/5. Knee flexors 4/5. Knee extensors 4/5. Ankle dorsiflexors 4/5. Ankle plantarflexors 4/5. Left Lower Extremity:Hip flexors 4/5. Hip abductors 4/5. Knee flexors 4/5. Knee extensors 4/5. Ankle dorsiflexors 4/5. Ankle plantarflexors 4/5. Bed Mobility/Transfers: Rolling minimal assist Supine to sit minimal assist Sit to supine minimal assist Sit to stand SBA Stand to sit SBA Bed to chair SBA Chair to bed SBA Gait: Patient exhibited reciprocal gait for 260 feet feet using a FWW with mild breathlessness after activity requiring SBA with step through gait pattern. Balance: Static Sitting: Normal Dynamic Sitting: Normal Static Standing: Fair Dynamic Standing: Fair Assessment: Patient demonstrates generalized weakness resulting from current diagnoses as above. Patient is a 74-year-old female with past medical history significant for ETOH abuse, back pain, depression, and frequent falling who presented to the ED today with chief presentation of nausea, vomiting, and diarrhea. Patient will continue to benefit from skilled home health physical therapy services to facilitate attainment of goals as listed below. Patient presented with clinical signs and symptoms consistent with current/admitting diagnoses that have resulted to mobility limitations, gait instability, generalized weakness, and impairment of motor control as demonstrated by the following impairment level findings: 1. Decreased strength to B UE/LE major muscle groups 2. Impaired standing balance 3. Impaired activity tolerance 4. Lightheadedness affecting ambulation distance Impairments continued to the following functional limitations: 1. Increased dependence with transfers 2. Inability to safely ambulate without assistive device and physical assistance 3. Increase completion time for mobility ADL performance 4. Increased fall risk 5. Inability to negotiate steps alone safely 6. Decreased ambulation distance Goals: Goals X1 week 1. Supine-Sit independent NOT MET 2. Sit-Supine independent NOT MET 3. Sit-Stand independent NOT MET 4. Stand-Sit independent NOT MET 5. Bed-Chair independent NOT MET 6. Chair-Bed independent NOT MET 7. Independent gait on level surface with use of straight cane for at least 300 feet without report of pain nor dyspnea NOT MET 8. Independent stair negotiation while holding onto bilateral rails for at least 5 steps without report of pain nor dyspnea NOT MET 9. Independent with home exercise program NOT MET 10. Good static and dynamic standing balance/tolerance NOT MET DISCHARGE RECOMMENDATIONS: Patient will benefit from home health PT services in order to progress mobility level using least restrictive assistive ambulatory device, assess home safety, identify additional equipment needs, and establish a functional maintenance program that will increase ability of patient to remain at home. TREATMENT CODE/TIME: NC. Thank you very much for this referral. Tawana Cruz PT, DPT, CLT [facility] [place], [place]
== END 2019-11-03 14:33 | disposition home or self-care (01) | DRG 392 ==
LOC: ER 04:56 → MS 05:23
PROVIDERS: Internal Medicine; Nurse Practitioner Family; Admitting Provider General Practice; Emergency Provider Emergency Medicine; PCP Family Medicine; Visit Provider General Practice
DX: K52.9 Noninfective gastroenteritis and colitis, unspecified (principal); E87.2 Acidosis; E51.2 Wernicke's encephalopathy; D64.9 Anemia, unspecified; F10.20 Alcohol dependence, uncomplicated; J30.9 Allergic rhinitis, unspecified; G89.29 Other chronic pain; M54.9 Dorsalgia, unspecified; M47.22 Other spondylosis with radiculopathy, cervical region; K29.20 Alcoholic gastritis without bleeding; F32.9 Major depressive disorder, single episode, unspecified; A60.00 Herpesviral infection of urogenital system, unspecified; K21.9 Gastro-esophageal reflux disease without esophagitis; E78.5 Hyperlipidemia, unspecified; I10 Essential (primary) hypertension; D75.89 Other specified diseases of blood and blood-forming organs; M85.80 Other specified disorders of bone density and structure, unspecified site; M54.31 Sciatica, right side; Z87.891 Personal history of nicotine dependence; H53.141 Visual discomfort, right eye; R19.09 Other intra-abdominal and pelvic swelling, mass and lump; R91.1 Solitary pulmonary nodule; S42.302D Unspecified fracture of shaft of humerus, left arm, subsequent encounter for fracture with routine healing; E86.0 Dehydration; E83.42 Hypomagnesemia; E87.6 Hypokalemia; Z66 Do not resuscitate
CPT/HCPCS: 36415; 80048; 80053; 80076; 83690; 84145; 96361; 96374; 97162; 97166; 97530; 99222; 99232; 99233; 99239; 99254; 99285; NC; 74177; 80320; 83605; 83735; 85025; 85610; 87324; 99284; J1644; J2405; J3475; J3480; J3490

== ENCOUNTER 2019-11-07 16:43 | Outpatient (REF) | payer OTHER, SELFPAY ==
[2019-11-07 13:37] LABS: Anion Gap 11.4 mmol/L (3-11); BUN 10 mg/dL (7-18); CO2 23.6 mmol/L (21.0-32.0); CREATININE 1.19 mg/dL (0.55-1.02); Calcium 9.5 mg/dL (8.5-10.1); Chloride 100 mmol/L (98-107); Estimated GFR 44.46 (mL/min/1.73m2); Glucose 119 mg/dL (74-106); Potassium 4.6 mmol/L (3.5-5.1); Sodium 135 mmol/L (136-145)
== END 2019-11-07 17:03 ==
LOC: LBN 16:43
PROVIDERS: PCP Family Medicine; Visit Provider Family Medicine
DX: R19.7 Diarrhea, unspecified (principal); R11.2 Nausea with vomiting, unspecified; E87.6 Hypokalemia
CPT/HCPCS: 80048

== ENCOUNTER 2019-11-13 17:09 | Emergency (ER) | payer OTHER, SELFPAY ==
[2019-11-13] VITALS (8 sets, daily range): BP systolic 165–198; BP diastolic 76–106; PULSE 90–143; RESP 21–24; TEMP 37.2–37.4; O2SAT 94–97
--- NOTE | 2019-11-13 17:03 | ED.GENADUL_ITS ---
Discharge Plan Disposition Patient Disposition: HOME Condition: Improving Discharge Details Chief Complaint: Nausea/Vomit/Diar Clinical Impression: Nausea & vomiting, Hypertension, Hypomagnesemia, Medical non-compliance Primary Care Provider: Lavelle Galindo ED Provider: Tash Servin Dingle Meds and New Rx's Prescriptions: Continued meclizine 25 mg tablet 25 mg PO TID PRN (Reason: dizziness) Qty: 30 RF: 1 venlafaxine 37.5 mg capsule,extended release 24hr 37.5 mg PO DAILY Qty: 30 RF: 11 venlafaxine 150 mg capsule,extended release 24hr 150 mg PO DAILY Qty: 30 RF: 11 ipratropium-albuterol 0.5 mg-3 mg(2.5 mg base)/3 mL solution for nebulization 3 ml IH QID PRN (Reason: shortness of breath) Qty: 90 RF: 3 hydrochlorothiazide 12.5 mg tablet 12.5 mg PO DAILY Qty: 90 RF: 3 gabapentin 300 mg capsule 300 mg PO BID Qty: 90 RF: 5 metoprolol tartrate 50 mg tablet 50 mg PO BID Qty: 180 RF: 3 sennosides [Senokot] 8.6 mg tablet 8.6 mg PO BID Qty: 180 RF: 3 magnesium oxide 400 mg magnesium capsule 400 mg PO BID Qty: 180 RF: 3 amlodipine 10 mg tablet 10 mg PO DAILY Qty: 90 RF: 3 thiamine mononitrate (vit B1) [Vitamin B-1 (mononitrate)] 100 mg tablet 100 mg PO DAILY Qty: 90 RF: 3 pantoprazole 40 mg tablet,delayed release (DR/EC) 40 mg PO DAILY Qty: 90 RF: 3 Ensure Active High Protein Liquid 414 ml PO DAILY Qty: 81443 RF: 11 multivitamin [Multiple Vitamins] Tablet 1 tab PO DAILY Qty: 90 RF: 3 potassium chloride [Klor-Con M10] 10 mEq tablet,ER particles/crystals 10 meq PO DAILY Qty: 90 RF: 3 dicyclomine 10 mg capsule 10 mg PO QID PRN (Reason: belly pain) Qty: 40 RF: 0 sucralfate 1 gram tablet 1 g PO AC & HS Qty: 120 RF: 5 folic acid 1 mg Tablet 1 mg PO DAILY Qty: 14 RF: 0 multivitamin [Multiple Vitamins] Tablet 1 tab PO DAILY Qty: 0 RF: 0 Refresh Plus 0.5 % Dropperette 1 drp OU Q4H WHILE AWAKE Qty: 30 RF: 0 fluticasone propionate 50 mcg/actuation [place],Suspension 1 spray NS DAILY Qty: 15.8 RF: 0 ondansetron 4 mg tablet,disintegrating 4 mg PO Q6H PRN (Reason: nausea and vomiting) Qty: 20 RF: 0 bisacodyl 5 mg Tablet,Delayed Release (Dr/Ec) 10 mg PO .q72h prn PRN (Reason: constipation - if no BM In 3 days) Qty: 10 RF: 0 promethazine 25 mg tablet 25 mg PO Q6H PRN (Reason: nausea and vomiting) Qty: 10 RF: 0 loperamide 2 mg capsule 2 mg PO Q4H PRN (Reason: loose stool) Qty: 20 RF: 0 Discharge Instructions Instructions: Acute Nausea and Vomiting (ED), Hypertension (ED), Hypomagnesemia (ED) Additional Instructions: Stop drinking alcohol. Encourage water intake. Please take medications as previously prescribed. Please follow-up with primary care this week for reevaluation. Please consider rehab options and discuss this further with your primary care. If you develop new or worsening symptoms please seek care urgently once again. Referrals: Lavelle Galindo [Primary Care Provider] - Discharge Data Discharge Date/Time-TO BE ENTERED AT DEPARTURE: 11/14/19 02:35 Medical Decision Making Patient is a 74-year-old female, well-known to the department, presenting today via EMS with chief complaint of nausea and vomiting. Patient has had similar episodes multiple times historically and reports that this does feel the same. She reports nausea and vomiting began yesterday. Does endorse some generalized abdominal discomfort. No chest pain or shortness of breath. Denies of fevers or chills. States that this morning she began having a headache. States that this feels unchanged from her baseline headaches. No thunderclap onset, no change compared to previous. Patient does drink alcohol but reports that she has not had any alcohol in the past 2 days. Patient has past medical history of presacral mass, enteritis, multiple episodes of nausea, vomiting diarrhea, alcoholic gastritis without bleeding, malnutrition, hypokalemia, alcohol abuse, chronic alcoholic gastritis, hypertension, hyperlipidemia, depression, Warnicke encephalopathy, pancreatitis. States that she has not been able to take her medication in 4 days. Patient has been here multiple times for this historically with very similar presentations. Patient is typically hypertensive as well as tachycardic secondary to her dehydration as well as not being to take her medications in general noncompliance to the light of alcohol consumption. On exam, she appears to be at her baseline. She is coughing and this does seem to cause her to gag but no adria vomiting. She appears chronically unwell. She does appear dehydrated. Lungs are clear, normal cardiac exam. Abdomen is tender primarily in the epigastric region no peritoneal findings. Plan to hydrate the patient, will give saline and banana bag as well as obtain baseline labs. EKG was reviewed by Dr. Foster. Patient is in a sinus tach at 138 with no change from previous EKGs, no acute ischemic changes are noted. Contacted by the lab with a potassium of 2.8. As the patient continues to endorse nausea despite the IV ondansetron, will give IV replenishment. We will also give IV Phenergan to help with nausea. Remaining labs are reviewed. No leukocytosis. Patient is anemic with a hemoglobin of 10.2, this actually up from the patient's baseline. Anion gap of 15.3 with a BUN of 8, creatinine of 1.12. His creatinine is not unusual for the patient. Glucose 224. Mag is low at 1.0. She is receiving banana bag with 2G of magnesium in it. Alk phos elevated at 148 which is baseline for patient. Troponin <0.05. Lipase 40. ETOH <3. Patient is receiving IV saline, banana bag and has received 5mg of Lopressor. HR already down trending to 111, BP 179/76. Patient is sleeping, comfortable with no vomiting or diarrhea since being here. Spoke with healthcare science specialist who sees the patient a few hours daily. She states that she saw her Tuesday and was quite drunk. States that when she is drinking she gets diarrhea. She states that she had to call EMS secondary to how intoxicated she was and that she was unable to get her up. She states she drank two 1/2 gallons of Mike whiskey on Tuesday and these were both empty on Tuesday morning when she saw her again. She states that yesterday there was diarrhea all around her apartment and she was still very intoxicated. She states that the patient did not have any of her medications prior to as Tuesday-today is still in the box. They are also concerned with the animals wellbeing as the patient small dog was outside all weekend in very cold temperatures and was found wet and cold notes that on Tuesday when she returned. I discussed that this is a recurrent issue with the patient. I asked her what we can do to get her to stop drinking so frequently and propelling herself into these exacerbation of diarrhea, nausea and vomiting. At this point, the patient reports I am too tired to talk about that. However, she did tell me that she does not want to stop drinking and only starts drinking when she is bored. Patient reports her nausea is coming back. It had completely resolved after Phenergan and Zofran. She is starting to get more tachycardic again, we will give IV Ativan as this may be associated with her withdrawal symptoms. Patient responded well to the Ativan. Heart rate is now down to 100. Repeat BMP reveals improvement with a potassium from 2.8-3.5. Her creatinine is from 1.12-0.74. Lactate is now within normal range of 1.3 down from 3.5. Magnesium is up to 1.6 from 1.0. Patient has been resting comfortably, is feeling much improved at this time. The hospitalist and I did discuss the patient. She has been hospitalized multitude of times for this and continues to go home and drink alcohol. Patient I also discussed inpatient versus outpatient admission. Given the current state of affairs and that the patient is at high risk if she was to contract COVID, and has improved greatly after the above interventions, I feel that discharge home is the safest options for this patient. I encouraged alcohol cessation. Encourage water intake. Encourage close follow-up with primary care. She is given strict return precautions. We did discuss inpatient care for her alcoholism which she continues to decline. She has daily home care provider and has been offered services historically. Her career development facilitator will be in touch to see what other services may be an option for the patient. All her questions and concerns were addressed and she is in agreement this plan. HPI General Mode of arrival: EMS . Date/Time Provider Initiated Documentation: 11/13/19 17:26 . Limitations to Documentation: no limitations . Information obtained by: patient, EMS and RN notes reviewed . History of Present Illness 74 year old F presents to the emergency department with the chief complaint of N/V, headache, described as moderate and similar to prior episodes, Quality is described as aching, and is localized to the head and abdomen. Patient reports no radiation. Patient started experiencing this day(s) (1, N/V began yesterday, slow onset of XIONG this AM) and it has been constant. No relieving factors improve symptom(s), No exacerbating factors reported . Patient notes loss of appetite and nausea/vomiting; denies chest pain, cough, fever/chills, rash, shortness of breath and weakness. Patient did receive the following treatments prior to arrival, none Related Data Home Medications Medication Instructions Recorded Confirmed folic acid 1 mg PO DAILY #14 tab 08/11/18 11/13/19 multivitamin [Multiple Vitamins] 1 tab PO DAILY #0 tab 05/03/19 11/13/19 Refresh Plus 1 drp OU Q4H WHILE AWAKE #30 each 06/20/19 11/13/19 fluticasone propionate 1 spray NS DAILY #15.8 ml 06/20/19 11/13/19 ipratropium 0.5 mg-albuterol 3 mg 3 ml IH QID PRN #90 ml 06/27/19 11/13/19 (2.5 mg base)/3 mL nebulization soln venlafaxine 150 mg 150 mg PO DAILY #30 cap 06/27/19 11/13/19 capsule,extended release 24 hr venlafaxine 37.5 mg 37.5 mg PO DAILY #30 cap 06/27/19 10/30/19 capsule,extended release 24 hr amlodipine 10 mg tablet 10 mg PO DAILY #90 tab 06/28/19 11/13/19 thiamine mononitrate (vit B1) 100 100 mg PO DAILY #90 tab 06/28/19 11/13/19 mg tablet magnesium oxide 400 mg PO BID #180 cap 07/17/19 10/30/19 ondansetron 4 mg PO Q6H PRN #20 tab 08/15/19 11/13/19 bisacodyl 10 mg PO .q72h prn PRN #10 tab 08/19/19 11/13/19 food supplemt, lactose-reduced 414 ml PO DAILY #09968 ml 08/24/19 11/13/19 pantoprazole 40 mg tablet,delayed 40 mg PO DAILY #90 tab 08/24/19 11/13/19 release gabapentin 300 mg capsule 300 mg PO BID #90 cap 08/28/19 11/13/19 hydrochlorothiazide 12.5 mg tablet 12.5 mg PO DAILY #90 tab 08/28/19 11/13/19 metoprolol tartrate 50 mg tablet 50 mg PO BID #180 tab 08/28/19 11/13/19 sennosides 8.6 mg tablet 8.6 mg PO BID #180 tab 08/28/19 11/13/19 meclizine 25 mg tablet 25 mg PO TID PRN #30 tab 09/14/19 11/13/19 multivitamin 1 tab PO DAILY #90 tab 09/14/19 10/30/19 potassium chloride 10 mEq 10 meq PO DAILY #90 tab 09/14/19 11/13/19 tablet,extended release(part/cryst) loperamide 2 mg PO Q4H PRN #20 cap 11/03/19 11/13/19 promethazine 25 mg PO Q6H PRN #10 tab 11/03/19 11/13/19 dicyclomine 10 mg capsule 10 mg PO QID PRN #40 cap 11/06/19 11/13/19 sucralfate 1 gram tablet 1 g PO AC & HS #120 tab 11/06/19 11/13/19 Previous Rx's Medication Instructions Recorded folic acid 1 mg PO DAILY #14 tab 08/11/18 multivitamin [Multiple Vitamins] 1 tab PO DAILY #0 tab 05/03/19 Refresh Plus 1 drp OU Q4H WHILE AWAKE #30 each 06/20/19 fluticasone propionate 1 spray NS DAILY #15.8 ml 06/20/19 ipratropium 0.5 mg-albuterol 3 mg 3 ml IH QID PRN #90 ml 06/27/19 (2.5 mg base)/3 mL nebulization soln venlafaxine 150 mg 150 mg PO DAILY #30 cap 06/27/19 capsule,extended release 24 hr venlafaxine 37.5 mg 37.5 mg PO DAILY #30 cap 06/27/19 capsule,extended release 24 hr amlodipine 10 mg tablet 10 mg PO DAILY #90 tab 06/28/19 thiamine mononitrate (vit B1) 100 100 mg PO DAILY #90 tab 06/28/19 mg tablet magnesium oxide 400 mg PO BID #180 cap 07/17/19 ondansetron 4 mg PO Q6H PRN #20 tab 08/15/19 bisacodyl 10 mg PO .q72h prn PRN #10 tab 08/19/19 food supplemt, lactose-reduced 414 ml PO DAILY #26254 ml 08/24/19 pantoprazole 40 mg tablet,delayed 40 mg PO DAILY #90 tab 08/24/19 release gabapentin 300 mg capsule 300 mg PO BID #90 cap 08/28/19 hydrochlorothiazide 12.5 mg tablet 12.5 mg PO DAILY #90 tab 08/28/19 metoprolol tartrate 50 mg tablet 50 mg PO BID #180 tab 08/28/19 sennosides 8.6 mg tablet 8.6 mg PO BID #180 tab 08/28/19 meclizine 25 mg tablet 25 mg PO TID PRN #30 tab 09/14/19 multivitamin 1 tab PO DAILY #90 tab 09/14/19 potassium chloride 10 mEq 10 meq PO DAILY #90 tab 09/14/19 tablet,extended release(part/cryst) loperamide 2 mg PO Q4H PRN #20 cap 11/03/19 promethazine 25 mg PO Q6H PRN #10 tab 11/03/19 dicyclomine 10 mg capsule 10 mg PO QID PRN #40 cap 11/06/19 sucralfate 1 gram tablet 1 g PO AC & HS #120 tab 11/06/19 Allergies Allergy/AdvReac Type Severity Reaction Status Date / Time Penicillins Allergy Mild Rash Verified 11/13/19 17:16 ramipril Allergy Unknown ITCHING Verified 11/13/19 17:16 meperidine [From Demerol] AdvReac Severe Nausea Verified 11/13/19 17:16 bupropion AdvReac Mild GI upset Verified 11/13/19 17:16 AMBER Inhibitors AdvReac Unknown COUGH Verified 11/13/19 17:16 alendronate sodium AdvReac Unknown GI Distress Verified 11/13/19 17:16 clarithromycin AdvReac Unknown intolerant Verified 11/13/19 17:16 paroxetine AdvReac Unknown Diarrhea Verified 11/13/19 17:16 General JORDAN: 3 Review of Systems Constitutional Constitutional: Reports as per HPI, Denies chills, Reports fatigue, Denies fever(s), Denies headache(s), Reports malaise and Reports poor appetite ENT Ears, Nose, Mouth, and Throat: Denies headache(s) and Denies odynophagia Cardiovascular Cardiovascular: Reports as per HPI, Denies chest pain and Denies dyspnea Respiratory Respiratory: Reports as per HPI, Denies cough and Denies dyspnea Gastrointestinal Gastrointestinal: Reports as per HPI, Denies hematochezia, Reports fecal incontinence (during times of alcohol intoxication), Reports diarrhea, Reports nausea, Denies odynophagia, Reports vomiting and Denies hematemesis Musculoskeletal Musculoskeletal: Reports as per HPI and Denies back pain Integumentary/Breasts Skin/Breast: Reports as per HPI and Denies rash Neurologic Neurologic: Reports as per HPI and Denies headache(s) Endocrine Endocrine: Reports fatigue [facility] Medical History Alcohol abuse (Chronic) Alcoholic ketosis (Resolved) Allergic rhinitis (Chronic) Anemia (Chronic 12/20/16) Back pain, chronic (Chronic) CAP (community acquired pneumonia) (Resolved) Cataract (Chronic 11/07/15) Cervical radicular pain (Chronic) neck pain and [facility] Chronic alcoholic gastritis (Chronic 10/12/17) pls refrain from alcohol Corneal ulcer, right (Inactive ~08/23/18) 08/23/18; UV-kb Depression (Chronic) Elev transaminase/LDH (Chronic) due to alcohol Fall (Acute) Falling (Chronic) Genital herpes simplex (Chronic) recurrent gential; suppressive Valtrex GERD (gastroesophageal reflux disease) (Chronic) GI bleed (Resolved 12/20/16) Headache (Resolved) Hyperlipidemia (Chronic) Hypertension (Chronic) high today; she will check readings at home 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 Multiple rib fractures (Resolved) 03/11/19 [facility] Non-cardiac chest pain (Resolved 09/21/16[place] [facility] [place] NEGATIVE MP Osteoarthritis (Chronic) Osteopenia (Chronic) 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) Peripheral edema (Acute) Pleural effusion on left (Resolved) 03/11/19 [facility] Right rib fracture (Resolved) Sciatica (Chronic) right, epidural injuections [facility] Tendinitis of left rotator cuff (Inactive) Tubular adenoma of colon (Chronic 01/28/17) Urinary incontinence (Chronic) 01/24/13 [place]ral [place] [facility] [place] Wernicke encephalopathy (Chronic) Surgical History Bladder Surgery suspension Colonoscopy - MAC (01/28/17) EGD - MAC (12/20/16) History of bilateral ligation of fallopian tubes (Inactive) Ligation of fallopian tube Repair bladder injury, simple Social History Smoking/Tobacco Use Status: Former Tobacco Use Alcohol Intake: current Alcohol Intake frequency: 3 or more drinks per day Alcohol type: hard liquor Drug use: Never Substance use type: does not use Details: last drink at midnight Current gender identity: female Do you feel safe at home: Yes Do you feel safe in your relationship?: Yes Additional Social history: Exam Const General: cooperative, comfortable and no acute distress Nutritional Appearance: average body habitus and well nourished Orientation: alert and awake HENPR Head: normal to inspection Mouth: moist mucous membranes Resp Effort & Inspection: normal respiratory effort, able to speak in complete sentences and no respiratory distress Auscultation: clear to auscultation bilaterally, no rales, no rhonchi and no wheezes Cardio Rate: regular rate Rhythm: regular rhythm Heart Sounds: S1 normal and S2 normal Back/Spine/Pelvis Back: no CVA tenderness Skin General skin exam: no rashes or lesions noted Trauma: no lacerations or abrasions Neuro General: patient alert and patient awake Cognition: normal cognition Speech: speech normal Gait: normal gait Psych Appearance: grossly normal and well kempt Mental Status: mental status grossly normal Speech and Movement: speech and movement normal
[2019-11-13] MEDS: Ondansetron 4 MG/2 ML VIAL IVP (17:24)
[2019-11-13 17:41] LABS: Abs Immature Grans 0.02 k/cumm (0.0-0.09); Absolute Basophil Count 0.01 k/cumm (0.0-0.2); Absolute Lymphocyte Count 0.25 k/cumm (1.2-3.4); Absolute Monocyte Count 0.24 k/cumm (0.11-0.7); Absolute Neutrophil Count 7.59 k/cumm (1.2-6.7); Basophils % 0.1; HCT 32.5 % (36.0-46.0); HGB 10.2 g/dL (12.0-15.5); Immature Grans % 0.2 %; Lymphocytes % 3.1; Mean Corp. HGB Concentration 31.4 g/dL (32.0-36.0); Mean Platelet Volume 8.4 fL (8.0-11.0); Neutrophils % 93.6; Platelet Count 383 x1000/uL (130-400); RBC 3.78 m/cumm (4.00-5.20); RBC Distribution Width 19.6 % (11.7-14.6); White Blood Cell Count 8.11 k/cumm (4.4-10.8)
[2019-11-13] MEDS: Normal Saline 1,000 ML 1000 ML IV (17:42)
[2019-11-13] MEDS: Metoprolol 5 MG/5 ML VIAL IVP ×2 (17:46→21:44)
[2019-11-13] MEDS: MAGNESIUM SULFATE 8.12 MEQ, MULTIVITAMIN 10 ML, THIAMINE 100 MG, FOLIC ACID 1 MG in Nor... 168.867 MG IV (18:05)
[2019-11-13 18:07] LABS: ALT 41 U/L (14-59); AST 32 U/L (15-37); Alkaline Phosphatase 148 U/L (46-116); Anion Gap 15.3 mmol/L (3-11); BUN 8 mg/dL (7-18); Bilirubin, Total 1.2 mg/dL (0.2-1.0); CO2 26.7 mmol/L (21.0-32.0); CREATININE 1.12 mg/dL (0.55-1.02); Chloride 99 mmol/L (98-107); ETHANOL BLOOD < 3.0 mg/dL (<3); Estimated GFR 47.69 (mL/min/1.73m2); Glucose 224 mg/dL (74-106); Lipase 40 U/L (73-393); Sodium 141 mmol/L (136-145); Total Protein 7.9 g/dL (6.4-8.2); Troponin I < 0.05 ng/Ml (<0.06)
[2019-11-13 18:13] LABS: Potassium 2.8 mmol/L (3.5-5.1)
[2019-11-13] MEDS: POTASSIUM CHLORIDE 20 MEQ/100 ML BAG 50 MEQ IVPB ×2 (18:19→20:28)
[2019-11-13 18:23] LABS: Lactate 3.5 mmol/L (0.6-1.4)
[2019-11-13] MEDS: LORazepam 2 MG/ML VIAL 1 MG IVP (19:23)
[2019-11-13 21:49] LABS: Bilirubin Negative (Negative); Blood Small (Negative); Clarity Clear (Clear); Glucose 100 mg/dL (Negative); Ketones Negative (Negative); Leukocyte Esterase Trace (Negative); Nitrite Negative (Negative); Urobilinogen 0.2 EU/dL (Up TO 0.2)
[2019-11-13 21:59] LABS: Bacteria Many HPF (Negative); C & S Indicated? No/Sq. Contamination; Casts Negative LPF (Negative); Crystals Negative HPF (Negative); Epithelial Cells Moderate HPF (Negative); Mucus Negative (Negative)
[2019-11-13 23:45] LABS: Lactate 1.3 mmol/L (0.6-1.4)
[2019-11-13 23:57] LABS: Anion Gap 7.6 mmol/L (3-11); BUN 5 mg/dL (7-18); CO2 30.4 mmol/L (21.0-32.0); CREATININE 0.74 mg/dL (0.55-1.02); Calcium 8.9 mg/dL (8.5-10.1); Chloride 106 mmol/L (98-107); Glucose 126 mg/dL (74-106); Potassium 3.5 mmol/L (3.5-5.1); Sodium 144 mmol/L (136-145)
[2019-11-14 00:30] LABS: Magnesium 1.6 mg/dL (1.8-2.4)
[2019-11-14 00:50] VITALS: BP 155/88; PULSE 100; RESP 20; TEMP 37.1; O2SAT 96
== END 2019-11-14 02:35 | disposition home or self-care (01) ==
PROVIDERS: Emergency Provider Physician Assistant; PCP Family Medicine
DX: R11.2 Nausea with vomiting, unspecified (principal); E83.42 Hypomagnesemia; I10 Essential (primary) hypertension; R10.84 Generalized abdominal pain; Z91.19 Patient's noncompliance with other medical treatment and regimen; E87.6 Hypokalemia; F10.20 Alcohol dependence, uncomplicated
CPT/HCPCS: 36415; 80048; 80053; 83690; 93005; 96375; 99284; 80320; 81003; 81015; 83605; 83735; 84484; 85025; 93010; J2060; J2405; J3480

== ENCOUNTER 2019-11-21 13:10 | Inpatient (IN) | payer OTHER, SELFPAY ==
[2019-11-21] VITALS (78 sets, daily range): BP systolic 159–190; BP diastolic 70–159; PULSE 100–148; RESP 16–34; TEMP 36.7–37.4; O2SAT 90–99
--- NOTE | 2019-11-21 13:20 | W.ED.GENAD ---
Discharge Plan Disposition Patient Disposition: [facility] INPATIENT Condition: Stable Discharge Details Chief Complaint: Nausea/Vomit/Diar Clinical Impression: Acute vomiting, Hypokalemia, Hypomagnesemia, Alcohol withdrawal Admit Date/Time: 11/21/19 22:11 Admit Provider: Saeed Cosme Attending Provider: Saeed Cosme Primary Care Provider: Lavelle Galindo ED Provider: Diana Luu Discharge Data Discharge Date/Time-TO BE ENTERED AT DEPARTURE: 11/21/19 23:30 Medical Decision Making <Gloria Alvarez - Last Filed: 11/22/19 08:06> 74-year-old female who is well-known to the department presents via EMS for nausea vomiting diarrhea which she reports started yesterday. She is a known alcoholic she reports her last intake of alcohol was when I left here. She is tachycardic and hypertensive upon arrival and is actively dry heaving. She has some right upper quadrant abdominal pain with palpation. Work-up ordered including CBC, CMP, lactate, troponin, Zofran, Ativan liter of fluid and Pepcid. EKG obtained by staff and reviewed by Dr. Fabio SERVIN. Sinus tachycardia no ST elevation. 1359: Critical lactate level of 7.0 resulted will order another liter of normal saline and recheck. 1400: Magnesium low at 1.11 g of magnesium IV piggyback ordered. Vital signs have improved, HR 115, BP 190/88 Lactate will be repeated after 2L NS fluid infusion, 40 meq KCL ordered PO and another Zofran 4 mg IVP. Possible admission for Lactic acidosis, Alcohol withdrawal, and Hypomagnesemia. 1458: Rectal exam performed Crystal RN at bedside as witness, guaic negative stool. 1541: Spoke with hospitalist Dr. Blake regarding possible admission, he recommends beta blocke rand additional fluids to see if she could be a canidate to return home. Will order beta j luis. Lopressor 2.5 mg IV push ordered and is in process at this time. Care to be handed over to oncoming provider Cyndy PATRICK pending repeat labs. At this time disposition is possible discharge home pending repeat labs and patient evaluation of condition. <CELINA Cortez - Last Filed: 11/21/19 23:06> Is a 74-year-old patient whom accepted in signout pending ultimate disposition and reevaluation of labs after period of observation in the emergency room. Patient is well-known to the emergency room for alcoholism and frequent nausea vomiting diarrhea and abdominal pain complaints. Patient returns with similar symptoms tonight. Patient reportedly has been noncompliant with her daily medications due to nausea vomiting and diarrhea for the last few days. Patient has a history of alcohol abuse, continues to drink, history of anemia, chronic pain syndrome, depression, frequent falls, history of GI bleeding, history of urinary incontinence, history of hypertension and hyperlipidemia. Patient signed out pending reevaluation of labs after being provided Ativan, IV magnesium, oral potassium, 2 L of IV fluid normal saline. Patient initially noted to have a gap of 20, a lactate notably elevated. Patient's lactate improved from 7.0-3.1, magnesium improved from 1.1-1.4, potassium improved to 3.0. These are not atypical of this patient's course. serial evaluations of the patient reveal some somnolence after receiving Ativan however at this time patient has been able to tolerate p.o. fluids. Will trial some crackers by mouth. Patient has not vomited since transition of care. Patient has been maintained on an LR drip of 150 an hour. Patient did receive an additional 2.5 of labetalol IV due to persistent tachycardia. Patient's heart rate had improved to the low 100s. After discussion with the patient inpatient management for further correction of her electrolyte abnormalities, continued monitoring and management of nausea and vomiting versus discharge home at this time patient feels most comfortable with discharge home. I did have to arouse the patient to have this conversation with her however she clearly sees her preference is discharge. will provide additional oral magnesium 400 mg as well as 200 mEq of potassium orally to further correct her electrolyte changes. Have strongly recommended this patient stop drinking as majority of her nausea vomiting and diarrhea are likely related to chronic alcoholism. Will trial p.o. crackers, continue to replete oral medications and plan to discharge patient home at her request at this time. Did attempt to get this patient upright and out of bed however she remains too somnolent for safe discharge home at this time. At this time I did ask Dr. Dc to evaluate the patient who is more familiar with her typical presentation. He evaluated the patient and reports this is unlike her baseline and is recommending admission to the hospital for further evaluation and observation. Possible somulonce related to use of benzo for withdrawl managment. Also recommended addition of CT head as patient does have a history of frequent falls due to her alcohol abuse. Will add CT head and he has hospitalist for consideration for admission. Spoke with hospitalist who will admit patient to [facility] <Wes Dc MD - Last Filed: 11/21/19 23:29> Patient is well known to me from previous visits/admissions. Current mental status is not baseline and could be related to the Ativan she received prior. However, has history of falls so will get CT head. Will need admission until back to baseline. Fluids and electrolyte replacements have been iniated and will continue. Patient seen by Dr. Cosme. Lab Data Lab results reviewed: Yes I reviewed the patient's lab results. HPI <Gloria Kim - Last Filed: 11/22/19 08:06> General Mode of arrival: EMS. Date/Time Provider Initiated Documentation: 11/21/19 13:18. Limitations to Documentation: no limitations. Information obtained by: patient and EMS. HPI Narrative: 74-year-old female who is well-known to the department presents via EMS for nausea vomiting diarrhea which she reports started yesterday. She is a known alcoholic she reports her last intake of alcohol was when I left here. She is tachycardic and hypertensive upon arrival and is actively dry heaving. She has some right upper quadrant abdominal pain with palpation. She has a history of alcoholic ketosis, anemia, alcoholic gastritis, depression, GERD hypertension, Wernicke's encephalopathy. She also has recent home health care notes noted in her review of her medical record from 11/16/2019. Related Data Home Medications Medication Instructions Recorded Confirmed folic acid 1 mg PO DAILY #14 tab 08/11/18 11/21/19 multivitamin [Multiple Vitamins] 1 tab PO DAILY #0 tab 05/03/19 11/21/19 Refresh Plus 1 drp OU Q4H WHILE AWAKE #30 each 06/20/19 11/21/19 fluticasone propionate 1 spray NS DAILY #15.8 ml 06/20/19 11/21/19 ipratropium 0.5 mg-albuterol 3 mg 3 ml IH QID PRN #90 ml 06/27/19 11/21/19 (2.5 mg base)/3 mL nebulization soln venlafaxine 150 mg 150 mg PO DAILY #30 cap 06/27/19 11/21/19 capsule,extended release 24 hr venlafaxine 37.5 mg 37.5 mg PO DAILY #30 cap 06/27/19 11/21/19 capsule,extended release 24 hr amlodipine 10 mg tablet 10 mg PO DAILY #90 tab 06/28/19 11/21/19 thiamine mononitrate (vit B1) 100 100 mg PO DAILY #90 tab 06/28/19 11/21/19 mg tablet magnesium oxide 400 mg PO BID #180 cap 07/17/19 11/21/19 ondansetron 4 mg PO Q6H PRN #20 tab 08/15/19 11/21/19 bisacodyl 10 mg PO .q72h prn PRN #10 tab 08/19/19 11/21/19 food supplemt, lactose-reduced 414 ml PO DAILY #44575 ml 08/24/19 11/21/19 pantoprazole 40 mg tablet,delayed 40 mg PO DAILY #90 tab 08/24/19 11/21/19 release gabapentin 300 mg capsule 300 mg PO BID #90 cap 08/28/19 11/21/19 hydrochlorothiazide 12.5 mg tablet 12.5 mg PO DAILY #90 tab 08/28/19 11/21/19 metoprolol tartrate 50 mg tablet 50 mg PO BID #180 tab 08/28/19 11/21/19 sennosides 8.6 mg tablet 8.6 mg PO BID #180 tab 08/28/19 11/21/19 meclizine 25 mg tablet 25 mg PO TID PRN #30 tab 09/14/19 11/21/19 multivitamin 1 tab PO DAILY #90 tab 09/14/19 11/21/19 potassium chloride 10 mEq 10 meq PO DAILY #90 tab 09/14/19 11/13/19 tablet,extended release(part/cryst) loperamide 2 mg PO Q4H PRN #20 cap 11/03/19 11/21/19 promethazine 25 mg PO Q6H PRN #10 tab 11/03/19 11/21/19 dicyclomine 10 mg capsule 10 mg PO QID PRN #40 cap 11/06/19 11/13/19 sucralfate 1 gram tablet 1 g PO AC & HS #120 tab 11/06/19 11/21/19 Previous Rx's Medication Instructions Recorded folic acid 1 mg PO DAILY #14 tab 08/11/18 multivitamin [Multiple Vitamins] 1 tab PO DAILY #0 tab 05/03/19 Refresh Plus 1 drp OU Q4H WHILE AWAKE #30 each 06/20/19 fluticasone propionate 1 spray NS DAILY #15.8 ml 06/20/19 ipratropium 0.5 mg-albuterol 3 mg 3 ml IH QID PRN #90 ml 06/27/19 (2.5 mg base)/3 mL nebulization soln venlafaxine 150 mg 150 mg PO DAILY #30 cap 06/27/19 capsule,extended release 24 hr venlafaxine 37.5 mg 37.5 mg PO DAILY #30 cap 06/27/19 capsule,extended release 24 hr amlodipine 10 mg tablet 10 mg PO DAILY #90 tab 06/28/19 thiamine mononitrate (vit B1) 100 100 mg PO DAILY #90 tab 06/28/19 mg tablet magnesium oxide 400 mg PO BID #180 cap 07/17/19 ondansetron 4 mg PO Q6H PRN #20 tab 08/15/19 bisacodyl 10 mg PO .q72h prn PRN #10 tab 08/19/19 food supplemt, lactose-reduced 414 ml PO DAILY #33356 ml 08/24/19 pantoprazole 40 mg tablet,delayed 40 mg PO DAILY #90 tab 08/24/19 release gabapentin 300 mg capsule 300 mg PO BID #90 cap 08/28/19 hydrochlorothiazide 12.5 mg tablet 12.5 mg PO DAILY #90 tab 08/28/19 metoprolol tartrate 50 mg tablet 50 mg PO BID #180 tab 08/28/19 sennosides 8.6 mg tablet 8.6 mg PO BID #180 tab 08/28/19 meclizine 25 mg tablet 25 mg PO TID PRN #30 tab 09/14/19 multivitamin 1 tab PO DAILY #90 tab 09/14/19 potassium chloride 10 mEq 10 meq PO DAILY #90 tab 09/14/19 tablet,extended release(part/cryst) loperamide 2 mg PO Q4H PRN #20 cap 11/03/19 promethazine 25 mg PO Q6H PRN #10 tab 11/03/19 dicyclomine 10 mg capsule 10 mg PO QID PRN #40 cap 11/06/19 sucralfate 1 gram tablet 1 g PO AC & HS #120 tab 11/06/19 Allergies Allergy/AdvReac Type Severity Reaction Status Date / Time Penicillins Allergy Mild Rash Verified 11/21/19 13:19 ramipril Allergy Unknown ITCHING Verified 11/21/19 13:19 meperidine [From Demerol] AdvReac Severe Nausea Verified 11/21/19 13:19 bupropion AdvReac Mild GI upset Verified 11/21/19 13:19 AMBER Inhibitors AdvReac Unknown COUGH Verified 11/21/19 13:19 alendronate sodium AdvReac Unknown GI Distress Verified 11/21/19 13:19 clarithromycin AdvReac Unknown intolerant Verified 11/21/19 13:19 paroxetine AdvReac Unknown Diarrhea Verified 11/21/19 13:19 General Stated Complaint: Nausea/Vomit/Diar JORDAN: 2 Review of Systems <Gloria Alvarez - Last Filed: 11/22/19 08:06> Narrative: Constitutional: Negative for weight loss, alert and oriented, appears disheveled, normal body habitus, appears uncomfortable. HEENT: Denies trauma, headaches, blurry vision, nasal discharge, sore throat, trouble swallowing. Chest: Denies chest pain, palpitations, irregular rhythm. Does have a history of tachycardia. And hypertension which she takes medication for. Respiratory: Denies Shortness of breath, cough, hemoptysis. GI: Positive abdominal pain, nausea, vomiting, diarrhea, denies constipation. : Denies dysuria, hematuria, flank pain. Neuro: Denies dizziness, blurry vision, weakness, syncope, headache or facial numbness. Hematologic: Denies easy bruising, intolerance to heat or cold, hair loss. PFSH <Gloria [place] - [facility] Filed: 11/22/19 08:06> Medical History Alcohol abuse (Chronic) Alcoholic ketosis (Resolved) Allergic rhinitis (Chronic) Anemia (Chronic 12/20/16) Back pain, chronic (Chronic) CAP (community acquired pneumonia) (Resolved) Cataract (Chronic 11/07/15) Cervical radicular pain (Chronic) neck pain and [facility] Chronic alcoholic gastritis (Chronic 10/12/17) pls refrain from alcohol Corneal ulcer, right (Inactive ~08/23/18) 08/23/18; [facility]- Depression (Chronic) Elev transaminase/LDH (Chronic) due to alcohol Fall (Acute) Falling (Chronic) Genital herpes simplex (Chronic) recurrent gential; suppressive Valtrex GERD (gastroesophageal reflux disease) (Chronic) GI bleed (Resolved 12/20/16) Headache (Resolved) Hyperlipidemia (Chronic) Hypertension (Chronic) high today; she will check readings at home 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 Multiple rib fractures (Resolved) 03/11/19 [facility] Non-cardiac chest pain (Resolved 09/21/16) [facility] 09/21/16 NEGATIVE MP Osteoarthritis (Chronic) Osteopenia (Chronic) 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) Peripheral edema (Acute) Pleural effusion on left (Resolved) 03/11/19 [facility] Right rib fracture (Resolved) Sciatica (Chronic) right, epidural injuections [facility] Tendinitis of left rotator cuff (Inactive) Tubular adenoma of colon (Chronic 01/28/17) Urinary incontinence (Chronic) 01/24/13 urethral suspension and sling at [facility] (bladder suspension 1991) Wernicke encephalopathy (Chronic) Surgical History Bladder Surgery suspension Colonoscopy - MAC (01/28/17) EGD - MAC (12/20/16) History of bilateral ligation of fallopian tubes (Inactive) Ligation of fallopian tube Repair bladder injury, simple Family History Mother No problems noted. Father , DROWNED at age 50. No problems noted. Sister Personal history of malignant neoplasm MELANOMA Sister No problems noted. Grandfather Personal history of malignant neoplasm STOMACH Grandfather Personal history of malignant neoplasm PROSTATE Grandmother Heart disease [place] Acute ill-defined cerebrovascular disease Grandmother Personal history of malignant neoplasm UTERINE Aunt , [place] Heart disease [place] Aunt , [place] Heart disease Brother No problems noted. Social History Smoking/Tobacco Use Status: Former Tobacco Use Alcohol Intake: current Alcohol Intake frequency: 3 or more drinks per day Alcohol type: hard liquor Drug use: Never Substance use type: does not use Details: last drink at midnight Current gender identity: female Do you feel safe at home: Yes Do you feel safe in your relationship?: Yes Additional Social history: Exam <Gloria Alvarez [facility] Filed: 11/22/19 08:06> Narrative Exam Narrative: Constitutional: Allert and oriented x3. Appears stated age. Normal body habitus. Head: Normocephalic, no trauma. Eyes: Pupils PERRLA, Red reflex noted, EOM's intact. Eyelids symmetrical withour lesions, discharge, or swelling. ENT: Bilateral TM's WNL, External ear normal to inspection, no mastoid TTP, swelling, or erythema, Nasal turbinates WNL, no nasal discharge. Normal dentition, Posterior pharynx WNL, no exudate. Chest: RRR, tachycardic at a rate of 144 normal S1, S2, distal pulses intact. Resp: Lungs clear to auscultation bilaterally, no wheezes, rales, or rhonchi. Abdominal: Soft normal to inspection, right upper quadrant tenderness to palpation. Musculoskeletal: Normal gait, 5/5 strength to all four extremities. Skin: No suspicious rashes or lesions. Capillary refill less than 2 sec. Neurologic: Cranial nerves II-XII intact. Alert and oriented x 3. DTR's intact. Hematologic/Lymphatic: No ecchymosis, no lymphadenopathy. Course <Gloria Alvarez - [facility] Filed: 11/22/19 08:06> Vital Signs Vital signs: Vital Signs Temperature 37.1 C 11/21/19 13:11 Pulse 148 H 11/21/19 13:11 Respiratory Rate 32 H 11/21/19 13:11 Blood Pressure 190/126 H 11/21/19 13:11 Pulse Oximetry 98 11/21/19 13:11 Temperature 37.1 C 11/21/19 13:11 Temperature Source Skin 11/21/19 13:11 Pulse 148 H 11/21/19 13:11 Respiratory Rate 32 H 11/21/19 13:11 Respiratory Effort Non-Labored 11/21/19 13:11 Blood Pressure 190/126 H 11/21/19 13:11 Blood Pressure Position Supine 11/21/19 13:11 Pulse Oximetry 98 11/21/19 13:11 Oxygen Delivery Method Room Air 11/21/19 13:11 Oxygen Flow Rate 0 11/21/19 13:11 Pain Level 6 11/21/19 13:11 Comment 11/21/19 13:11 Sign Out <Gloria Alvarez - Last Filed: 11/22/19 08:06> Sign Out Data: Sign Out Comment: Pending repeat Labs and disposition. Last updated by Gloria Alvarez at 11/21/19 16:18
[2019-11-21 13:27] LABS: Abs Immature Grans 0.02 k/cumm (0.0-0.09); Absolute Basophil Count 0.01 k/cumm (0.0-0.2); Absolute Lymphocyte Count 0.44 k/cumm (1.2-3.4); Absolute Monocyte Count 0.45 k/cumm (0.11-0.7); Basophils % 0.1; HCT 32.6 % (36.0-46.0); HGB 10.3 g/dL (12.0-15.5); Immature Grans % 0.3 %; Lymphocytes % 5.6; Mean Corp. HGB Concentration 31.6 g/dL (32.0-36.0); Mean Corpuscular Volume 85.3 fL (80-95); Mean Platelet Volume 8.7 fL (8.0-11.0); Monocytes % 5.8; Neutrophils % 88.2; Platelet Count 406 x1000/uL (130-400); RBC 3.82 m/cumm (4.00-5.20); RBC Distribution Width 18.9 % (11.7-14.6); White Blood Cell Count 7.82 k/cumm (4.4-10.8)
[2019-11-21] MEDS: LORazepam 2 MG/ML VIAL IVP ×2 (13:28→16:33)
[2019-11-21] MEDS: Normal Saline 1,000 ML 1000 ML IV ×2 (13:28→14:15)
[2019-11-21] MEDS: Ondansetron 4 MG/2 ML VIAL IVP ×2 (13:29→15:22)
[2019-11-21] MEDS: Normal Saline Flush 10 ML SYR IVP (13:29)
[2019-11-21] MEDS: FAMOTIDINE 20 MG/50 ML BAG 200 MG IVPB (13:37)
[2019-11-21 13:58] LABS: ALT 49 U/L (14-59); AST 41 U/L (15-37); Albumin 3.8 g/dL (3.4-5.0); Alkaline Phosphatase 152 U/L (46-116); Anion Gap 20.6 mmol/L (3-11); BUN 14 mg/dL (7-18); Bilirubin, Total 0.9 mg/dL (0.2-1.0); CO2 22.4 mmol/L (21.0-32.0); CREATININE 1.24 mg/dL (0.55-1.02); Calcium 10.2 mg/dL (8.5-10.1); Chloride 99 mmol/L (98-107); ETHANOL BLOOD 6.9 mg/dL (<3); Glucose 220 mg/dL (74-106); Magnesium 1.1 mg/dL (1.8-2.4); Potassium 3.1 mmol/L (3.5-5.1); Sodium 142 mmol/L (136-145); Total Protein 7.3 g/dL (6.4-8.2); Troponin I < 0.05 ng/Ml (<0.06)
[2019-11-21] MEDS: MAGNESIUM SULFATE 1 GM/100 ML BAG IVPB (14:23)
[2019-11-21] MEDS: Potassium Chloride Liquid 20 MEQ PKT 40 MEQ PO (15:22)
[2019-11-21] MEDS: Metoprolol 5 MG/5 ML VIAL 2.5 MG IVP ×2 (16:33→18:09)
[2019-11-21 16:42] LABS: Lactate 3.1 mmol/L (0.6-1.4)
[2019-11-21 16:48] LABS: Anion Gap 10.8 mmol/L (3-11); BUN 11 mg/dL (7-18); CO2 28.2 mmol/L (21.0-32.0); CREATININE 0.91 mg/dL (0.55-1.02); Calcium 9.1 mg/dL (8.5-10.1); Chloride 104 mmol/L (98-107); Glucose 185 mg/dL (74-106); Magnesium 1.4 mg/dL (1.8-2.4); Sodium 143 mmol/L (136-145)
[2019-11-21 17:43] LABS: Troponin I < 0.05 ng/Ml (<0.06)
[2019-11-21] MEDS: Lactated Ringers 1,000 ML 150 ML IV (17:44)
--- NOTE | 2019-11-21 21:58 | W.PM.HP.N ---
Date of service: 11/21/19 Time of Service: 21:58 Assessment and Plan Assessment and plan (1) Nausea: Status: Acute Assessment and plan: Nausea vomiting and diarrhea, all likely due to ongoing alcoholism, with gastritis and multiple electrolyte deficiencies. Will place on CIWA, with IVF and K and Mg replacement, along with PPI. ER has just ordered head CT due to sedation. Will stand by but as noted above patient has received Ativan and this is likely explanation. History of Present Illness History of Present Illness Chief Complaint: nausea and vomiting Narrative: 74 female alcoholic, innumerable admissions for [id number] and vomiting attributable to alcoholism -- here with one day nausea vomiting and diarrhea. In ER findings of note for hypokalemia, hypomagnesemia, tremor, alcohol level 69 and lactate 7.1. Given Ativan, Lopressor, magnesium and potassium. Due to persistent electrolyte deficiencies along with sedation (from Ativan?) patient admitted for further management. Patient unable to give any history at this time. Review of Systems Unobtainable due to mental status [facility] Medical History Alcohol abuse (Chronic) Alcoholic ketosis (Resolved) Allergic rhinitis (Chronic) Anemia (Chronic 12/20/16) Back pain, chronic (Chronic) CAP (community acquired pneumonia) (Resolved) Cataract (Chronic 11/07/15) Cervical radicular pain (Chronic) neck pain and DJD [facility] Chronic alcoholic gastritis (Chronic 10/12/17) pls refrain from alcohol Corneal ulcer, right (Inactive ~08/23/18) 08/23/18; [facility] Depression (Chronic) Elev transaminase/LDH (Chronic) due to alcohol Fall (Acute) Falling (Chronic) Genital herpes simplex (Chronic) recurrent gential; suppressive Valtrex GERD (gastroesophageal reflux disease) (Chronic) GI bleed (Resolved 12/20/16) Headache (Resolved) Hyperlipidemia (Chronic) Hypertension (Chronic) high today; she will check readings at home 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 Multiple rib fractures (Resolved) 03/11/19 [facility] Non-cardiac chest pain (Resolved 09/21/16) [facility] [place] NEGATIVE MP Osteoarthritis (Chronic) Osteopenia (Chronic) 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) Peripheral edema (Acute) Pleural effusion on left (Resolved) 7/14/19 [facility] Right rib fracture (Resolved) Sciatica (Chronic) right, epidural injuections [facility] Tendinitis of left rotator cuff (Inactive) Tubular adenoma of colon (Chronic 01/28/17) Urinary incontinence (Chronic) 01/24/13 urethral suspension and sling [place] [facility] [place] (bladder suspension 1991) Wernicke encephalopathy (Chronic) Surgical History Bladder Surgery suspension Colonoscopy - MAC (01/28/17) EGD - MAC (12/20/16) History of bilateral ligation of fallopian tubes (Inactive) Ligation of fallopian tube Repair bladder injury, simple Family History Mother No problems noted. Father , DROWNED at age 50. No problems noted. Sister Personal history of malignant neoplasm MELANOMA Sister No problems noted. Grandfather Personal history of malignant neoplasm STOMACH Grandfather Personal history of malignant neoplasm PROSTATE Grandmother Heart disease OR Acute ill-defined cerebrovascular disease Grandmother Personal history of malignant neoplasm UTERINE Aunt , OR Heart disease OR Aunt , OR Heart disease Brother No problems noted. Social History Smoking/Tobacco Use Status: Former Tobacco Use Alcohol Intake: current Alcohol Intake frequency: 3 or more drinks per day Alcohol type: hard liquor Drug use: Never Substance use type: does not use Details: last drink at midnight Current gender identity: female Do you feel safe at home: Yes Do you feel safe in your relationship?: Yes Additional Social history: Meds Home Medications and Allergies Home Medications Medication Instructions Recorded Confirmed Type folic acid 1 mg PO DAILY #14 tab 08/11/18 11/21/19 Rx multivitamin [Multiple Vitamins] 1 tab PO DAILY #0 tab 05/03/19 11/21/19 Rx Refresh Plus 1 drp OU Q4H WHILE AWAKE #30 each 06/20/19 11/21/19 Rx fluticasone propionate 1 spray NS DAILY #15.8 ml 06/20/19 11/21/19 Rx ipratropium 0.5 mg-albuterol 3 mg 3 ml IH QID PRN #90 ml 06/27/19 11/21/19 Rx (2.5 mg base)/3 mL nebulization soln venlafaxine 150 mg 150 mg PO DAILY #30 cap 06/27/19 11/21/19 Rx capsule,extended release 24 hr venlafaxine 37.5 mg 37.5 mg PO DAILY #30 cap 06/27/19 11/21/19 Rx capsule,extended release 24 hr amlodipine 10 mg tablet 10 mg PO DAILY #90 tab 06/28/19 11/21/19 Rx thiamine mononitrate (vit B1) 100 100 mg PO DAILY #90 tab 06/28/19 11/21/19 Rx mg tablet magnesium oxide 400 mg PO BID #180 cap 07/17/19 11/21/19 Rx ondansetron 4 mg PO Q6H PRN #20 tab 08/15/19 11/21/19 Rx bisacodyl 10 mg PO .q72h prn PRN #10 tab 08/19/19 11/21/19 Rx food supplemt, lactose-reduced 414 ml PO DAILY #72949 ml 08/24/19 11/21/19 Rx pantoprazole 40 mg tablet,delayed 40 mg PO DAILY #90 tab 08/24/19 11/21/19 Rx release gabapentin 300 mg capsule 300 mg PO BID #90 cap 08/28/19 11/21/19 Rx hydrochlorothiazide 12.5 mg tablet 12.5 mg PO DAILY #90 tab 08/28/19 11/21/19 Rx metoprolol tartrate 50 mg tablet 50 mg PO BID #180 tab 08/28/19 11/21/19 Rx sennosides 8.6 mg tablet 8.6 mg PO BID #180 tab 08/28/19 11/21/19 Rx meclizine 25 mg tablet 25 mg PO TID PRN #30 tab 09/14/19 11/21/19 Rx multivitamin 1 tab PO DAILY #90 tab 09/14/19 11/21/19 Rx potassium chloride 10 mEq 10 meq PO DAILY #90 tab 09/14/19 11/13/19 Rx tablet,extended release(part/cryst) loperamide 2 mg PO Q4H PRN #20 cap 11/03/19 11/21/19 Rx promethazine 25 mg PO Q6H PRN #10 tab 11/03/19 11/21/19 Rx dicyclomine 10 mg capsule 10 mg PO QID PRN #40 cap 11/06/19 11/13/19 Rx sucralfate 1 gram tablet 1 g PO AC & HS #120 tab 11/06/19 11/21/19 Rx Allergies Allergy/AdvReac Type Severity Reaction Status Date / Time Penicillins Allergy Mild Rash Verified 11/21/19 13:19 ramipril Allergy Unknown ITCHING Verified 11/21/19 13:19 meperidine [From Demerol] AdvReac Severe Nausea Verified 11/21/19 13:19 bupropion AdvReac Mild GI upset Verified 11/21/19 13:19 AMBER Inhibitors AdvReac Unknown COUGH Verified 11/21/19 13:19 alendronate sodium AdvReac Unknown GI Distress Verified 11/21/19 13:19 clarithromycin AdvReac Unknown intolerant Verified 11/21/19 13:19 paroxetine AdvReac Unknown Diarrhea Verified 11/21/19 13:19 Exam Narrative Exam Narrative: 161/70, 112, 37.4, 19. 94%. HEENT atraumatic; neck supple; lungs clear; heart tachy and regular; abdomen soft and NT; extremities w/o edema; neuro awakens to loud voice or light touch, denies pain then falls asleep again, responds to one word commands, moves all 4s Results Labs Result diagrams: 11/21/19 13:17 11/21/19 16:29 Labs: Laboratory Results - last 24 hr 11/21/19 11/21/19 11/21/19 13:17 13:17 13:38 WBC 7.82 RBC 3.82 L Hgb 10.3 L Hct 32.6 L MCV 85.3 MCH 27.0 MCHC 31.6 L RDW 18.9 H Plt Count 406 H MPV 8.7 Immature Gran % 0.3 Neutrophils % 88.2 Lymphocytes % 5.6 Monocytes % 5.8 Eosinophils % 0.0 Basophils % 0.1 Absolute Neutrophils 6.90 H Absolute Lymphocytes 0.44 L Absolute Monocytes 0.45 Absolute Eosinophils 0.00 Absolute Basophils 0.01 Sodium 142 Potassium 3.1 L Chloride 99 Carbon Dioxide 22.4 Anion Gap 20.6 H BUN 14 Creatinine 1.24 H Estimated GFR/1.73 m2 42.40 Glucose 220 H Lactate 7.0 H* Calcium 10.2 H Magnesium 1.1 L Total Bilirubin 0.9 AST 41 H ALT 49 Alkaline Phosphatase 152 H Troponin I < 0.05 Total Protein 7.3 Albumin 3.8 Ethyl Alcohol 6.9 11/21/19 11/21/19 11/21/19 16:29 16:29 16:29 WBC RBC Hgb Hct MCV MCH MCHC RDW Plt Count MPV Immature Gran % Neutrophils % Lymphocytes % Monocytes % Eosinophils % Basophils % Absolute Neutrophils Absolute Lymphocytes Absolute Monocytes Absolute Eosinophils Absolute Basophils Sodium 143 Potassium 3.0 L Chloride 104 Carbon Dioxide 28.2 Anion Gap 10.8 BUN 11 Creatinine 0.91 Estimated GFR/1.73 m2 >= 60.00 Glucose 185 H Lactate 3.1 H* Calcium 9.1 Magnesium 1.4 L Total Bilirubin AST ALT Alkaline Phosphatase Troponin I < 0.05 Total Protein Albumin Ethyl Alcohol Last Vital Signs Temp 37.4 C 11/21/19 19:53 Pulse 112 H 11/21/19 21:01 Resp 19 11/21/19 21:30 BP 161/70 H 11/21/19 21:01 Pulse Ox 94 L 11/21/19 21:20 COVID-19 Screening Traveled to [place] from one of the affected countries or regions?: No Recent travel in the [place] within the last 8 weeks?: No Recent out of the country travel within the last 8 weeks?: No Exposure or possible exposure to illness during travel?: No Had IN PERSON contact w/suspected or confirmed C-19 person: No Have you had the following symptoms in the past few days?: No
--- NOTE | 2019-11-21 22:43 | DI.CT_ITS ---
EXAM: CT HEAD WO CLINICAL HISTORY: vomiting, altered mental status. TECHNIQUE: Imaging Protocol: Axial computed tomography images with coronal and sagittal reformatted images were created and reviewed COMPARISON: CT HEAD CERV SPINE FACIAL WO from 07/10/2019 FINDINGS: Ventricles and Extra axial spaces: There is prominence of the ventricles and sulci consistent with ce rebral atrophy. Hemorrhage: None. Cerebral parenchyma: There are areas of decreased attenuation in the white matter consistent with sma ll vessel ischemic disease. No acute territorial infarct is present. Midline shift: None. Brainstem/Cerebellum: Normal. Calvarium: Normal. Visualized Paranasal sinuses/Mastoids: Clear. Soft Tissues: Unremarkable. IMPRESSION: No acute intracranial process. RADIATION DOSE DELIVERED: DATA REPOSITORY: All CT scans at this facility are submitted to the National Radiology Data Registry (NRDR) Dose Index Registry (DIR) with the [employer] (ACR). RADIATION OPTIMIZATION: All CT scans at this facility use at least one of these dose optimization te chniques: automated exposure control; mA and/or kV adjustment per patient size (includes targeted exa ms where dose is matched to clinical indication); or iterative reconstruction.
--- NOTE | 2019-11-21 22:54 | DI.VRAD_ITS ---
PROCEDURE INFORMATION: Exam: CT Head Without Contrast Exam date and time: 11/21/2019 10:44 PM Age: 74 years old Clinical indication: Altered mental status/memory loss; Additional info: Vomiting, AMS TECHNIQUE: Imaging protocol: Computed tomography of the head without contrast. Radiation optimization: All CT scans at this facility use at least one of these dose optimization techniques: automated exposure control; mA and/or kV adjustment per patient size (includes targeted exams where dose is matched to clinical indication); or iterative reconstruction. COMPARISON: CT HEAD WO 05/01/2019 8:08 PM FINDINGS: Brain: There is diffuse cerebral atrophy concordant with the patient's age. Chronic small vessel deep white matter ischemic disease is suggested by areas of patchy white matter low attenuation. No intracranial hemorrhage. No acute large territory CVA. No mass. No acute edema. No acute intracranial abnormality. Ventricles: Normal. No ventriculomegaly. Bones/joints: Unremarkable. No acute fracture. Sinuses: Visualized sinuses are unremarkable. No fluid levels. Mastoid air cells: Visualized mastoid air cells are well aerated. Soft tissues: Unremarkable. IMPRESSION: 1. No acute intracranial abnormality. 2. Atrophy and chronic small vessel deep white matter ischemia. Age-appropriate. Dictated and Authenticated by: Alpesh Smith MD. Ordering:CAMILO Ortiz MD
[2019-11-21] MEDS: MAGNESIUM SULFATE 8.12 MEQ, MULTIVITAMIN 10 ML, THIAMINE 100 MG, FOLIC ACID 1 MG in Nor... 168.867 MG IV (23:26)
[2019-11-22] VITALS (11 sets, daily range): BP systolic 171–183; BP diastolic 93–127; PULSE 85–115; RESP 16–20; TEMP 36.5–37.6; O2SAT 96–98
[2019-11-22] MEDS: Pantoprazole 40 MG VIAL IVP ×2 (00:20→22:08)
[2019-11-22] MEDS: Metoprolol 25 MG TAB PO (04:55)
[2019-11-22] MEDS: POTASSIUM CHLORIDE/0.9% NACL 1,000 ML 125 MEQ IV ×3 (06:15→23:04)
[2019-11-22 06:59] LABS: HGB 9.9 g/dL (12.0-15.5); Mean Corpuscular Hemoglobin 26.5 pg (27.0-33.0); Mean Corpuscular Volume 88.2 fL (80-95); Mean Platelet Volume 9.1 fL (8.0-11.0); Platelet Count 309 x1000/uL (130-400); RBC 3.74 m/cumm (4.00-5.20); White Blood Cell Count 4.28 k/cumm (4.4-10.8)
[2019-11-22 07:20] LABS: Anion Gap 8.5 mmol/L (3-11); BUN 8 mg/dL (7-18); CO2 31.5 mmol/L (21.0-32.0); CREATININE 0.83 mg/dL (0.55-1.02); Calcium 8.9 mg/dL (8.5-10.1); Chloride 105 mmol/L (98-107); Glucose 121 mg/dL (74-106); Sodium 145 mmol/L (136-145)
[2019-11-22 07:24] LABS: Potassium 2.8 mmol/L (3.5-5.1)
[2019-11-22 07:27] LABS: Magnesium 1.8 mg/dL (1.8-2.4)
[2019-11-22] MEDS: Metoprolol 50 MG TAB PO ×2 (07:34→19:54)
[2019-11-22] MEDS: MAGNESIUM SULFATE 1 GM/100 ML BAG IVPB (08:56)
--- NOTE | 2019-11-22 09:47 | PDOC.CMIN ---
- If Service Date Differs Date of service: 11/22/19 Time of Service: 10:00 Care Management Initial Assess REASON FOR HOSPITALIZATION:: Nausea, Alcoholism PAST MEDICAL HISTORY/PAST SURGICAL HISTORY:: Medical History . Alcohol abuse (Chronic). Alcoholic ketosis (Resolved). Allergic rhinitis (Chronic). Anemia (Chronic 12/20/16). Back pain, chronic (Chronic). CAP (community acquired pneumonia) (Resolved). Cataract (Chronic 11/07/15). Cervical radicular pain (Chronic). neck pain and DJD. [facility]. Chronic alcoholic gastritis (Chronic 10/12/17). pls refrain from alcohol. Corneal ulcer, right (Inactive ~08/23/18). 08/23/18; [facility]. Depression (Chronic). Elev transaminase/LDH (Chronic). due to alcohol. Fall (Acute). Falling (Chronic). Genital herpes simplex (Chronic). recurrent gential; suppressive Valtrex. GERD (gastroesophageal reflux disease) (Chronic). GI bleed (Resolved 12/20/16). Headache (Resolved). Hyperlipidemia (Chronic). Hypertension (Chronic). high today; she will check readings at home. Macrocytosis (Chronic 09/26/14). due to alcohol. Multiple rib fractures (Resolved). 03/11/19 [facility]. Non-cardiac chest pain (Resolved 09/21/16). [facility] [place] 09/21/16 NEGATIVE MP. Osteoarthritis (Chronic). Osteopenia (Chronic). 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). Peripheral edema (Acute). Pleural effusion on left (Resolved). 03/11/19 [facility]. Right rib fracture (Resolved). Sciatica (Chronic). right, epidural injuections. [facility]. Tendinitis of left rotator cuff (Inactive). Tubular adenoma of colon (Chronic 01/28/17). Urinary incontinence (Chronic). 01/24/13 urethral suspension and sling at [facility] [place]. (bladder suspension 1991). Wernicke encephalopathy (Chronic). Surgical History . Bladder Surgery. suspension. Colonoscopy - MAC (01/28/17). EGD - MAC (12/20/16). History of bilateral ligation of fallopian tubes (Inactive). Ligation of fallopian tube. Repair bladder injury, simple PREVIOUS FUNCTIONAL STATUS/SOCIAL/FAMILY SUPPORTS:: Leticia lives alone in [place]. She has a private caregiver who assists her with medication management and housekeeping. Leticia is otherwise independent with ADLs. She states she no longer drives and takes RCT to appointments. CURRENT FUNCTIONAL STATUS:: Leticia was resting when CM met with her. She woke up when CM entered the room, but had very little communication with CM. When asked how she was feeling today, she shook her head no. Per RN report, she has been arousable today but not very communicative. Per NEEDLE POLISHER report, Leticia will be discharged home once she is able to tolerate PO. CM will continue to follow. ADVANCE DIRECTIVES:: DNR/COLST on file dwayne Avery is agent Has patient been provided with information about the portal?: Yes Did the patient sign up for the portal?: Yes (previously) CODE STATUS:: DNR/DNI INSURANCE COVERAGE / FINANCIAL ISSUES:: [facility] CURRENT HOME/COMMUNITY SERVICES/EQUIPMENT:: private caregiver, MOW, FWW. RN and OT PRIMARY CARE PHYSICIAN:: Lavelle Galindo POTENTIAL DISCHARGE NEEDS:: Follow up with PCP and discharge plan of care PATIENT/FAMILY EDUCATION NEEDS:: Discharge plan, limitations, follow up plan, Ask Me Three ANTICIPATED BARRIERS TO DISCHARGE:: None identified at this time. TRANSPORTATION:: via RCT coordinated by CM PLAN:: Leticia will likely return home with a resumption of services. She has a private caregiver, MOW and nursing and OT. She will follow up with her PCP and discharge plan of care and transport via RCT. CM will continue to follow and support Leticia and her discharge planning needs. Readmission - Within the Past 30 Days Yes or No: Y - Date of First Admission Date of 1st Admission: 11/13/19 - Date of this Admission Date of Admission: 11/21/19 This admission was: Through ED - Assessment for Readmission Summary of readmission circumstances, based upon interviews: CM was unable to obtain a full assessment from Leticia regarding her readmission. Per report, Leticia returned to [facility] after having nausea, vomiting and diarrhea for two days. When she was last discharged from [facility] on 11/03/19 she was still having diarrhea, but it appears that it is a chronic issue, per report. CM will continue to discuss her discharge plan as well as ask me three, determining self care goals that will help her be successful at home.
[2019-11-22] MEDS: POTASSIUM CHLORIDE 10 MEQ/100 ML BAG 100 MEQ IVPB ×4 (09:57→12:57)
--- NOTE | 2019-11-22 11:59 | W.PM.PROGNOT ---
Date of Service Date of service: 11/22/19 Time of Service: 12:00 Assessment and Plan Assessment and plan (1) Nausea & vomiting: Status: Acute Assessment and plan: recurrent and all likely due to ongoing alcoholism, with gastritis and multiple electrolyte deficiencies. Will place on CIWA, with IVF and K and Mg replacement, continue IV PPI. (2) Alcoholic gastritis without bleeding: Status: Ruled-out Assessment and plan: daily IV PPI, restart carafate now that diet advancing. (3) Chronic alcoholism: Status: Chronic Assessment and plan: CIWA scale, (4) Hypokalemia: Status: Acute Assessment and plan: IV replacement and monitor. (5) DVT prophylaxis: Status: Acute Assessment and plan: heparin subcu, teds (6) Discharge planning issues: Status: Acute Assessment and plan: will discharge home when tolerating PO Subjective Subjective Patient reports: feels better Exam Narrative Exam Narrative: elderly female of stated age, lying quietly in bed. no acute distress. pink warm dry and well perfused. Const General: cooperative, comfortable and no acute distress Nutritional Appearance: average body habitus Orientation: alert, awake, oriented to person and oriented to place HENNH Head: normal to inspection, normocephalic and atraumatic Mouth: oral mucosae normal Resp Effort & Inspection: normal respiratory effort Auscultation: diminished lung sounds bilaterally Cardio Rate: regular rate Rhythm: regular rhythm GI Inspection: normal to inspection Palpation: soft and tender in the epigastrum Skin General skin exam: no rashes or lesions noted Neuro General: patient alert, tone normal and moves all extremities Cognition: normal cognition Speech: speech normal Motor: muscle tone normal throughout Extrem General: normal to inspection Psych Appearance: grossly normal Mental Status: mental status grossly normal and other (depressed appearance) Speech and Movement: speech and movement normal Mood: other (depressed appearance) Affect: blunted Attitude: cooperative Thought Process: normal Thought Content: normal Insight: limited Judgment: poor Objective Objective Clinical Data: Abnormal lab results 11/21/19 11/21/19 11/21/19 Range/Units 13:17 13:17 13:38 WBC (4.4-10.8) k/cumm RBC 3.82 L (4.00-5.20) m/cumm Hgb 10.3 L (12.0-15.5) g/dL Hct 32.6 L (36.0-46.0) % MCH (27.0-33.0) pg MCHC 31.6 L (32.0-36.0) g/dL RDW 18.9 H (11.7-14.6) % Plt Count 406 H (130-400) x1000/uL Absolute Neutrophils 6.90 H (1.2-6.7) k/cumm Absolute Lymphocytes 0.44 L (1.2-3.4) k/cumm Potassium 3.1 L (3.5-5.1) mmol/L Anion Gap 20.6 H (3-11) mmol/L Creatinine 1.24 H (0.55-1.02) mg/dL Glucose 220 H (74-106) mg/dL Lactate 7.0 H* (0.6-1.4) mmol/L Calcium 10.2 H (8.5-10.1) mg/dL Magnesium 1.1 L (1.8-2.4) mg/dL AST 41 H (15-37) U/L Alkaline Phosphatase 152 H (46-116) U/L 11/21/19 11/21/19/ Range/Units 16:29 16:29 06:15 WBC (4.4-10.8) k/cumm RBC (4.00-5.20) m/cumm Hgb (12.0-15.5) g/dL Hct (36.0-46.0) % MCH (27.0-33.0) pg MCHC (32.0-36.0) g/dL RDW (11.7-14.6) % Plt Count (130-400) x1000/uL Absolute Neutrophils (1.2-6.7) k/cumm Absolute Lymphocytes (1.2-3.4) k/cumm Potassium 3.0 L 2.8 L* (3.5-5.1) mmol/L Anion Gap (3-11) mmol/L Creatinine (0.55-1.02) mg/dL Glucose 185 H 121 H (74-106) mg/dL Lactate 3.1 H* (0.6-1.4) mmol/L Calcium (8.5-10.1) mg/dL Magnesium 1.4 L (1.8-2.4) mg/dL AST (15-37) U/L Alkaline Phosphatase (46-116) U/L 11/22/19 Range/Units 06:15 WBC 4.28 L D (4.4-10.8) k/cumm RBC 3.74 L (4.00-5.20) m/cumm Hgb 9.9 L (12.0-15.5) g/dL Hct 33.0 L (36.0-46.0) % MCH 26.5 L (27.0-33.0) pg MCHC 30.0 L (32.0-36.0) g/dL RDW 19.0 H (11.7-14.6) % Plt Count (130-400) x1000/uL Absolute Neutrophils (1.2-6.7) k/cumm Absolute Lymphocytes (1.2-3.4) k/cumm Potassium (3.5-5.1) mmol/L Anion Gap (3-11) mmol/L Creatinine (0.55-1.02) mg/dL Glucose (74-106) mg/dL Lactate (0.6-1.4) mmol/L Calcium (8.5-10.1) mg/dL Magnesium (1.8-2.4) mg/dL AST (15-37) U/L Alkaline Phosphatase (46-116) U/L Vital Signs Temperature 37.1 C 11/22/19 10:25 Temperature Source Tympanic 11/22/19 10:25 Pulse 85 11/22/19 10:25 Pulse Rhythm Regular 11/22/19 08:05 Pulse 110 H 11/21/19 23:10 Respiratory Rate 16 11/22/19 10:25 Respiratory Effort Non-Labored 11/22/19 08:05 Respiratory Depth Normal 11/22/19 08:05 Respiratory Pattern Normal 11/22/19 08:05 Blood Pressure 173/98 H 11/22/19 10:25 Blood Pressure Mean 105 11/21/19 22:52 Blood Pressure Position Supine 11/21/19 13:11 Pulse Oximetry 98 11/22/19 10:25 Oxygen Delivery Method Room Air 11/22/19 10:25 Oxygen Flow Rate 0 11/22/19 10:25 Pain Level 0 11/22/19 10:25 Comment 11/21/19 13:11 Intake & Output 0311/21/19 11/22/19 11:59 23:59 11:59 Intake Total 2049 2299.867 / 2299.867 Output Total 100 / 100 Balance 2049 2199.867 / 2199.867 Weight 63.503 kg Intake: IV 2049 2299.867 / 2299.867 Output: Urine 100 / 100 Other: Urine Color Pale Urine Appearance Clear Urine Odor None Stool Size Small Stool Characteristics Formed Mucoid Emesis Description None Voiding Methods Incontinent Laboratory Results WBC 4.28 k/cumm (4.4-10.8) L D 11/22/19 06:15 RBC 3.74 m/cumm (4.00-5.20) L 11/22/19 06:15 Hgb 9.9 g/dL (12.0-15.5) L 11/22/19 06:15 Hct 33.0 % (36.0-46.0) L 11/22/19 06:15 MCV 88.2 fL (80-95) 11/22/19 06:15 MCH 26.5 pg (27.0-33.0) L 11/22/19 06:15 MCHC 30.0 g/dL (32.0-36.0) L 11/22/19 06:15 RDW 19.0 % (11.7-14.6) H 11/22/19 06:15 Plt Count 309 x1000/uL (130-400) 11/22/19 06:15 MPV 9.1 fL (8.0-11.0) 11/22/19 06:15 Immature Gran % 0.3 % 11/21/19 13:17 Neutrophils % 88.2 11/21/19 13:17 Lymphocytes % 5.6 11/21/19 13:17 Monocytes % 5.8 11/21/19 13:17 Eosinophils % 0.0 11/21/19 13:17 Basophils % 0.1 11/21/19 13:17 Absolute Neutrophils 6.90 k/cumm (1.2-6.7) H 11/21/19 13:17 Absolute Lymphocytes 0.44 k/cumm (1.2-3.4) L 11/21/19 13:17 Absolute Monocytes 0.45 k/cumm (0.11-0.7) 11/21/19 13:17 Absolute Eosinophils 0.00 k/cumm (0.0-0.7) 11/21/19 13:17 Absolute Basophils 0.01 k/cumm (0.0-0.2) 11/21/19 13:17 Sodium 145 mmol/L (136-145) 11/22/19 06:15 Potassium 2.8 mmol/L (3.5-5.1) L* 11/22/19 06:15 Chloride 105 mmol/L (98-107) 11/22/19 06:15 Carbon Dioxide 31.5 mmol/L (21.0-32.0) 11/22/19 06:15 Anion Gap 8.5 mmol/L (3-11) 11/22/19 06:15 BUN 8 mg/dL (7-18) 11/22/19 06:15 Creatinine 0.83 mg/dL (0.55-1.02) 11/22/19 06:15 Estimated GFR/1.73 m2 >= 60.00 (mL/min/1.73m2) 11/22/19 06:15 Glucose 121 mg/dL (74-106) H 11/22/19 06:15 Lactate 3.1 mmol/L (0.6-1.4) H* 11/21/19 16:29 Calcium 8.9 mg/dL (8.5-10.1) 11/22/19 06:15 Magnesium 1.8 mg/dL (1.8-2.4) 11/22/19 06:45 Total Bilirubin 0.9 mg/dL (0.2-1.0) 11/21/19 13:17 AST 41 U/L (15-37) H 11/21/19 13:17 ALT 49 U/L (14-59) 11/21/19 13:17 Alkaline Phosphatase 152 U/L (46-116) H 11/21/19 13:17 Troponin I < 0.05 ng/Ml (<0.06) 11/21/19 16:29 Total Protein 7.3 g/dL (6.4-8.2) 11/21/19 13:17 Albumin 3.8 g/dL (3.4-5.0) 11/21/19 13:17 Ethyl Alcohol 6.9 mg/dL (<3) 11/21/19 13:17
[2019-11-22] MEDS: Venlafaxine 150 MG CAPCR PO (12:55)
[2019-11-22] MEDS: Venlafaxine 37.5 MG CAPCR PO (12:56)
--- NOTE | 2019-11-22 14:58 | NUR.NOTE ---
Nursing Note: Pt's caregiver Armida called and inquired about the pt. This nurse advised that she would not be going home today. Armida noted that she would talk to the pt's daughter [facility] Armida then proceeded to have a very long conversation with this nurse about her concerns about the pt's drinking. She notes that when the pt gets home, she obtains whisky by the multiples of half gallons and goes through about a half gallon in 2 days by sipping it all day. She also advised that the pt drank almost 1.5 gallons of whisky from the evening of Tuesday the to yesterday when she was brought to the hospital. She is very concerned that she will come home, stop taking her meds again and start drinking and there is little she could do about it. This nurse advised that the [employer], Kiana who cared for her today did briefly discuss that the drinking was the cause of the gastritis and that the Carafate was important to take to relieve this. This nurse also advised that a note would be made of the conversation and her concerns.
--- NOTE | 2019-11-22 15:05 | NUR.NOTE ---
Nursing Note: While the fourth bag of KCl was infusing, the L forearm IV site began to infiltrate. There was a pink, puffy area by the catheter insertion site. There were no hardened areas in the skin. The infusion was stopped. A new IV was placed in the R forearm. MIGUEL ÁNGEL Wells RN was conferred with and advised a warm compress which was placed on the L forearm after the IV was d/c'ed.
--- NOTE | 2019-11-22 15:51 | PHA.ADMREV ---
Pharmacy Clinical Review - Admission Clinical Review (Last Reviewed 11/21/19 @ 22:03 by Saeed Cosme MD) Nausea (Acute) Acute vomiting (Acute) Hypokalemia (Acute) Hypomagnesemia (Acute) Alcohol withdrawal (Acute) Nausea & vomiting (Acute) Discharge planning issues (Acute) DVT prophylaxis (Acute) Hypokalemia (Acute) Penicillins Allergy (Mild, Verified 11/21/19 13:19) Rash ramipril Allergy (Unknown, Verified 11/21/19 13:19) ITCHING meperidine [From Demerol] Adverse Reaction (Severe, Verified 11/21/19 13:19) Nausea bupropion Adverse Reaction (Mild, Verified 11/21/19 13:19) GI upset AMBER Inhibitors Adverse Reaction (Unknown, Verified 11/21/19 13:19) COUGH alendronate sodium Adverse Reaction (Unknown, Verified 11/21/19 13:19) GI Distress clarithromycin Adverse Reaction (Unknown, Verified 11/21/19 13:19) intolerant paroxetine Adverse Reaction (Unknown, Verified 11/21/19 13:19) Diarrhea Height 5 ft Weight 63.503 kg NAUSEA, ALCOHOLISM - Renal Dosing Renal Dosing: BUN 8 mg/dL (7-18) 11/22/19 06:15 Creatinine 0.83 mg/dL (0.55-1.02) 11/22/19 06:15 Medications needing adjustments: Reviewed (CrCl~43ml/min-no med adjustments) - Anticoagulation Anticoagulation: Hgb 9.9 g/dL (12.0-15.5) L 11/22/19 06:15 Hct 33.0 % (36.0-46.0) L 11/22/19 06:15 Plt Count 309 x1000/uL (130-400) 11/22/19 06:15 Creatinine 0.83 mg/dL (0.55-1.02) 11/22/19 06:15 DVT Prohphylaxis: Reviewed Medications: Heparin Therapeutic Anticoagulation: N/A - Opiate Usage Evaluate Pain Scale/Pains Meds: N/A - Relevant Labs Sodium 145 mmol/L (136-145) 11/22/19 06:15 Potassium 2.8 mmol/L (3.5-5.1) L* 11/22/19 06:15 Chloride 105 mmol/L (98-107) 11/22/19 06:15 Magnesium 1.8 mg/dL (1.8-2.4) 11/22/19 06:45 Electrolytes, C-Reactive P, ESR: Reviewed (Lactate trending down, Potassium repleted with both IV and oral supplements, IV Mag 1gram given, also rec'd Banana bag in ED) - Antimicrobial Stewardship Antibiotic appropriateness: N/A Surgical Abx d/c within 24 hr: N/A Culture review/Resistance: N/A - DM Control DM Control: Glucose 121 mg/dL (74-106) H 11/22/19 06:15 Insulin Dosing: N/A - Heart Failure/VT Heart Failure/VT: Troponin I < 0.05 ng/Ml (<0.06) 11/21/19 16:29 EF%, AMBER's, B-Blockers, Diuretics: Reviewed (Metoprolol) - BP Control BP Control: Blood Pressure 176/109 Blood Pressure 173/98 Blood Pressure 176/113 Blood Pressure 173/93 Blood Pressure 181/127 If elevated: Reviewed (Metoprolol ordered, Amlodipine and HCTZ-home med not ordered) - QTc Review If Elevated: Reviewed (QTC 325) - IV to PO Switch IV Medications: Reviewed (Zofran, Protonix-possibly change from IV to oral) - Home Meds Home Med List reviewed: Reviewed Relevent Home Meds Not ordered & why?: Plan was to advance diet and possibly discharge PARKER. Amlodipine & HCTZ not ordered. OTC's. Fluticasone NS. Folic Acid. Gabapentin. Ranitidine-has Protonix & Sucralfate ordered. Naltrexone. Promethazine. Meclizine - Current meds Current Medication Order Review: Reviewed (has IV and oral Lorazepam) - Comments Comments/Follow Ups: Watch BP, CIWA-currently 2, electrolytes
[2019-11-22] MEDS: Potassium Chloride Liquid 20 MEQ PKT PO ×2 (16:09→19:53)
[2019-11-22] MEDS: Sucralfate 1 GM TAB PO ×2 (16:09→22:06)
[2019-11-22] MEDS: Normal Saline Flush 10 ML SYR IVP ×2 (19:54→22:08)
[2019-11-22] MEDS: Heparin 5,000 UNITS/ML VIAL 5000 UNITS SC (19:54)
[2019-11-22 20:27] LABS: Bilirubin Negative (Negative); Blood Trace-intact (Negative); Clarity Sl Cloudy (Clear); Glucose Negative (Negative); Ketones Negative (Negative); Leukocyte Esterase Small (Negative); Nitrite Negative (Negative); Urobilinogen 0.2 EU/dL (Up TO 0.2)
[2019-11-22 20:45] LABS: Bacteria Moderate HPF (Negative); C & S Indicated? Yes; Casts Negative LPF (Negative); Crystals Negative HPF (Negative); Epithelial Cells Rare HPF (Negative); Mucus Negative (Negative); Other Cells Negative (Negative); RBC 0-2 HPF (0-2)
[2019-11-22] MEDS: LORazepam 1 MG TAB PO/SL (22:06)
[2019-11-23] VITALS (7 sets, daily range): BP systolic 138–177; BP diastolic 92–115; PULSE 84–100; RESP 16–28; TEMP 36.3–36.6; O2SAT 95–97
[2019-11-23] MEDS: LORazepam 1 MG TAB PO/SL ×3 (03:33→10:36)
[2019-11-23] MEDS: POTASSIUM CHLORIDE/0.9% NACL 1,000 ML 125 MEQ IV (06:41)
[2019-11-23 07:03] LABS: Abs Immature Grans 0.02 k/cumm (0.0-0.09); Absolute Lymphocyte Count 1.54 k/cumm (1.2-3.4); Absolute Monocyte Count 0.72 k/cumm (0.11-0.7); Absolute Neutrophil Count 3.54 k/cumm (1.2-6.7); HCT 33.7 % (36.0-46.0); HGB 10.3 g/dL (12.0-15.5); Immature Grans % 0.3 %; Lymphocytes % 26.5; Mean Corp. HGB Concentration 30.6 g/dL (32.0-36.0); Mean Corpuscular Hemoglobin 26.5 pg (27.0-33.0); Mean Corpuscular Volume 86.6 fL (80-95); Monocytes % 12.4; Neutrophils % 60.8; Platelet Count 299 x1000/uL (130-400); RBC 3.89 m/cumm (4.00-5.20); RBC Distribution Width 18.1 % (11.7-14.6); White Blood Cell Count 5.82 k/cumm (4.4-10.8)
[2019-11-23 07:14] LABS: ALT 46 U/L (14-59); AST 44 U/L (15-37); Albumin 3.2 g/dL (3.4-5.0); Alkaline Phosphatase 135 U/L (46-116); Anion Gap 10.3 mmol/L (3-11); BUN 4 mg/dL (7-18); Bilirubin, Total 1.5 mg/dL (0.2-1.0); CO2 24.7 mmol/L (21.0-32.0); CREATININE 0.82 mg/dL (0.55-1.02); Calcium 8.6 mg/dL (8.5-10.1); Chloride 99 mmol/L (98-107); Glucose 118 mg/dL (74-106); Potassium 3.6 mmol/L (3.5-5.1); Sodium 134 mmol/L (136-145); Total Protein 6.4 g/dL (6.4-8.2)
[2019-11-23] MEDS: Sucralfate 1 GM TAB PO (07:48)
[2019-11-23] MEDS: Potassium Chloride Liquid 20 MEQ PKT PO (07:48)
[2019-11-23] MEDS: Venlafaxine 150 MG CAPCR PO (07:48)
[2019-11-23] MEDS: Heparin 5,000 UNITS/ML VIAL 5000 UNITS SC (07:48)
[2019-11-23] MEDS: Venlafaxine 37.5 MG CAPCR PO (07:48)
[2019-11-23] MEDS: Metoprolol 50 MG TAB PO (07:48)
[2019-11-23] MEDS: Thiamine 100 MG TAB PO (07:49)
--- NOTE | 2019-11-23 09:34 | DSE_ITS ---
Date of service: 11/23/19 Time of Service: 09:34 DS: Diagnosis Discharge Diagnosis (1) Nausea & vomiting: Start date: 11/23/19 Start time: 09:36 Status: Resolved Asessment and Plan: Known alcohol dependence, with gastritis. Tolerating po intake. Continue PPI and carafate will given zofran for nausea. Have spoke in length with patient regarding alcohol use. She verbalizes understanding, continues drink despite. Will d/c home follow up with PCP (2) Alcoholic gastritis without bleeding: Start date: 11/23/19 Start time: 09:39 Status: Ruled-out Asessment and Plan: Continue PPI and carafate. Diet as tolerated. Abstain from alcohol (3) Chronic alcoholism: Start date: 11/23/19 Start time: 09:42 Status: Chronic Asessment and Plan: Understands risks of drinking, continue to drink. States out of boredom (4) Hypokalemia: Start date: 11/23/19 Start time: 09:43 Status: Resolved Asessment and Plan: 3.6 Discharge Plan Disposition Patient Disposition: HOME Condition: Improving Discharge Details Chief Complaint: Nausea/Vomit/Diar Clinical Impression: Acute vomiting, Hypokalemia, Hypomagnesemia, Alcohol withdrawal Reason For Visit: NAUSEA, ALCOHOLISM Admit Date/Time: 11/21/19 22:11 Admit Provider: Saeed Cosme Attending Provider: Saeed Cosme Primary Care Provider: Lavelle Galindo ED Provider: Diana Luu Hospital Course Hospital Course: 74 y.o female well known for admission r/t alcohol dependence, n/v and gastritis. Admitted from [facility] ED to m/s. Upon admission had multiple electrolyte deficiencies. She was admitted for further mangement. During hospitalization she was placed on CIWA when admitted, however was not presenting with symptoms, per previous provider and continues to present without symptoms at this time. Electrolytes improved. No longer feeling nauseated, tolerating diet. She did have u/a growing e coli with greater than 100,000 colonies, given a dose of fosfomyacin. Given concern for COVID virus spread in the hospital setting, She is being discharged home with zofran for nausea. Continue PPI and carafate. Follow up with PCP as needed. She denies CP, N/V/D. SOB. Home Meds and New Rx's Prescriptions: New potassium chloride 20 mEq Packet 20 meq PO BID Qty: 10 RF: 0 thiamine mononitrate (vit B1) [Vitamin B-1 (mononitrate)] 100 mg Tablet 100 mg PO DAILY Qty: 10 RF: 0 ondansetron HCl [Zofran] 4 mg tablet 4 mg PO Q8H Qty: 10 RF: 0 Continued meclizine 25 mg tablet 25 mg PO TID PRN (Reason: dizziness) Qty: 30 RF: 1 venlafaxine 37.5 mg capsule,extended release 24hr 37.5 mg PO DAILY Qty: 30 RF: 11 venlafaxine 150 mg capsule,extended release 24hr 150 mg PO DAILY Qty: 30 RF: 11 ipratropium-albuterol 0.5 mg-3 mg(2.5 mg base)/3 mL solution for nebulization 3 ml IH QID PRN (Reason: shortness of breath) Qty: 90 RF: 3 hydrochlorothiazide 12.5 mg tablet 12.5 mg PO DAILY Qty: 90 RF: 3 gabapentin 300 mg capsule 300 mg PO BID Qty: 90 RF: 5 metoprolol tartrate 50 mg tablet 50 mg PO BID Qty: 180 RF: 3 sennosides [Senokot] 8.6 mg tablet 8.6 mg PO BID Qty: 180 RF: 3 magnesium oxide 400 mg magnesium capsule 400 mg PO BID Qty: 180 RF: 3 amlodipine 10 mg tablet 10 mg PO DAILY Qty: 90 RF: 3 thiamine mononitrate (vit B1) [Vitamin B-1 (mononitrate)] 100 mg tablet 100 mg PO DAILY Qty: 90 RF: 3 pantoprazole 40 mg tablet,delayed release (DR/EC) 40 mg PO DAILY Qty: 90 RF: 3 Ensure Active High Protein Liquid 414 ml PO DAILY Qty: 84194 RF: 11 multivitamin [Multiple Vitamins] Tablet 1 tab PO DAILY Qty: 90 RF: 3 potassium chloride [Klor-Con M10] 10 mEq tablet,ER particles/crystals 10 meq PO DAILY Qty: 90 RF: 3 dicyclomine 10 mg capsule 10 mg PO QID PRN (Reason: belly pain) Qty: 40 RF: 0 sucralfate 1 gram tablet 1 g PO AC & HS Qty: 120 RF: 5 folic acid 1 mg Tablet 1 mg PO DAILY Qty: 14 RF: 0 multivitamin [Multiple Vitamins] Tablet 1 tab PO DAILY Qty: 0 RF: 0 Refresh Plus 0.5 % Dropperette 1 drp OU Q4H WHILE AWAKE Qty: 30 RF: 0 fluticasone propionate 50 mcg/actuation Dodge,Suspension 1 spray NS DAILY Qty: 15.8 RF: 0 ondansetron 4 mg tablet,disintegrating 4 mg PO Q6H PRN (Reason: nausea and vomiting) Qty: 20 RF: 0 bisacodyl 5 mg Tablet,Delayed Release (Dr/Ec) 10 mg PO .q72h prn PRN (Reason: constipation - if no BM In 3 days) Qty: 10 RF: 0 promethazine 25 mg tablet 25 mg PO Q6H PRN (Reason: nausea and vomiting) Qty: 10 RF: 0 loperamide 2 mg capsule 2 mg PO Q4H PRN (Reason: loose stool) Qty: 20 RF: 0 Discharge Instructions Instructions: Urinary Tract Infection in Women (GEN), Acute Nausea and Vomiting (DC), Alcohol Dependence (GEN) Additional Instructions: Follow up with PCP as needed Taken zofran if feeling nauseated every 8 hours Advance diet as tolerated. STOP DRINKING !!!! Activity:: Activity as Tolerated Equipment/Supplies:: No Equipment Needed Diet:: As Tolerated Discharge Orders Discharge Orders: Discharge Order (Routine); Ordered 11/23/19 Ordered By: Pat Navarro DS: Summary Status at Discharge Functional status at discharge: independent ambulation Overall status at discharge: patient is back to baseline Mental Status: mental status grossly normal and other (depressed appearance) Speech and Movement: speech and movement normal Mood: other (depressed appearance) Affect: blunted Exam Const General: cooperative, comfortable and no acute distress Nutritional Appearance: average body habitus Orientation: alert, awake, oriented to person and oriented to place [facility] Head: normal to inspection, normocephalic and atraumatic Mouth: oral mucosae normal Resp Effort & Inspection: normal respiratory effort Auscultation: diminished lung sounds bilaterally Cardio Rate: regular rate Rhythm: regular rhythm GI Inspection: normal to inspection Palpation: soft and tender in the epigastrum Skin General skin exam: no rashes or lesions noted Neuro General: patient alert, tone normal and moves all extremities Cognition: normal cognition Speech: speech normal Motor: muscle tone normal throughout Extrem General: normal to inspection Psych Appearance: grossly normal Mental Status: mental status grossly normal and other (depressed appearance) Speech and Movement: speech and movement normal Mood: other (depressed appearance) Affect: blunted Attitude: cooperative Thought Process: normal Thought Content: normal Insight: limited Judgment: poor DS: Data Vitals/I&O Vitals and I&O: Vital Signs Temperature 36.6 C 11/23/19 08:55 Temperature Source Tympanic 11/23/19 08:55 Pulse 92 H 11/23/19 08:55 Pulse Rhythm Regular 11/23/19 08:14 Pulse 110 H 11/21/19 23:10 Respiratory Rate 20 11/23/19 08:55 Respiratory Effort 11/23/19 08:27 Respiratory Depth Shallow 11/23/19 08:27 Respiratory Pattern Normal 11/23/19 08:27 Blood Pressure 138/92 H 11/23/19 08:55 Blood Pressure Mean 105 11/21/19 22:52 Blood Pressure Position Supine 11/21/19 13:11 Pulse Oximetry 97 11/23/19 08:55 Oxygen Delivery Method Room Air 11/23/19 08:55 Oxygen Flow Rate 0 11/23/19 08:55 Pain Level 5 11/23/19 08:55 Comment 11/22/19 12:37 Intake & Output 11/22/19 11/22/19 11/23/19 11:59 23:59 11:59 Intake Total 2299.867 / 5328.617 3028.75 / 5328.617 1682.083 / 1682.083 Output Total 100 / 150 50 / 150 100 / 100 Balance 2199.867 / 5178.617 2978.75 / 5178.617 1582.083 / 1582.083 Intake: IV 2299.867 / 4368.617 2068.75 / 4368.617 952.083 / 952.083 Oral 960 / 960 730 / 730 Output: Urine 100 / 150 50 / 150 100 / 100 Other: Urine Color Pale Yellow Yellow Urine Appearance Clear Clear Clear Urine Odor None Normal Comment Urine contaminated by stool. Dribbled in BSC, urine sent to lab. Stool Size Small Moderate Stool Characteristics Formed Liquid Mucoid Brown Voiding Methods Incontinent Diaper Bedside Commode Incontinent Diaper Incontinent Data Completed and Pending Completed studies during hospitalization [Text1]: : 6Age: 74 Exam(s) PROCEDURE INFORMATION: Exam: CT Head Without Contrast Exam date and time: 11/21/2019 10:44 PM Age: 74 years old Clinical indication: Altered mental status/memory loss; Additional info: Vomiting, AMS TECHNIQUE: Imaging protocol: Computed tomography of the head without contrast. Radiation optimization: All CT scans at this facility use at least one of these dose optimization techniques: automated exposure control; mA and/or kV adjustment per patient size (includes targeted exams where dose is matched to clinical indication); or iterative reconstruction. COMPARISON: CT HEAD WO 05/01/2019 8:08 PM FINDINGS: Brain: There is diffuse cerebral atrophy concordant with the patient's age. Chronic small vessel deep white matter ischemic disease is suggested by areas of patchy white matter low attenuation. No intracranial hemorrhage. No acute large territory CVA. No mass. No acute edema. No acute intracranial abnormality. Ventricles: Normal. No ventriculomegaly. Bones/joints: Unremarkable. No acute fracture. Sinuses: Visualized sinuses are unremarkable. No fluid levels. Mastoid air cells: Visualized mastoid air cells are well aerated. Soft tissues: Unremarkable. IMPRESSION: 1. No acute intracranial abnormality. 2. Atrophy and chronic small vessel deep white matter ischemia. Age-appropriate. Labs on day of discharge: Labs from last 24 hours 11/23/19 11/23/19 11/22/19 06:25 06:25 20:00 WBC 5.82 D RBC 3.89 L Hgb 10.3 L Hct 33.7 L MCV 86.6 MCH 26.5 L MCHC 30.6 L RDW 18.1 H Plt Count 299 MPV 9.0 Immature Gran % 0.3 Neutrophils % 60.8 Lymphocytes % 26.5 Monocytes % 12.4 Eosinophils % 0.0 Basophils % 0.0 Absolute Neutrophils 3.54 Absolute Lymphocytes 1.54 Absolute Monocytes 0.72 H Absolute Eosinophils 0.00 Absolute Basophils 0.00 Sodium 134 L Potassium 3.6 D Chloride 99 Carbon Dioxide 24.7 Anion Gap 10.3 BUN 4 L Creatinine 0.82 Estimated GFR/1.73 m2 >= 60.00 Glucose 118 H Calcium 8.6 Total Bilirubin 1.5 H AST 44 H ALT 46 Alkaline Phosphatase 135 H Total Protein 6.4 Albumin 3.2 L Urine Color Yellow Urine Clarity Sl cloudy Urine pH 8.0 Ur Specific [place]ilion 1.020 Urine Protein 30 H Urine Ketones Negative Urine Blood Trace-intact H Urine Nitrite Negative Urine Bilirubin Negative Urine Urobilinogen 0.2 Ur Leukocyte Esterase Small H Urine RBC 0-2 Urine WBC 5-10 Ur Epithelial Cells Rare Urine Crystals Negative Urine Bacteria Moderate Urine Casts Negative Urine Mucus Negative Urine Other Negative Ur Culture Indicated? Yes Urine Glucose Negative Preliminary micro results at discharge 11/22/19 20:00 Urine Culture - Preliminary Urine - Reflex from Ua Escherichia coli [facility] Medical History Alcohol abuse (Chronic) Alcoholic ketosis (Resolved) Allergic rhinitis (Chronic) Anemia (Chronic 12/20/16) Back pain, chronic (Chronic) CAP (community acquired pneumonia) (Resolved) Cataract (Chronic 11/07/15) Cervical radicular pain (Chronic) neck pain and [facility]D [facility] Chronic alcoholic gastritis (Chronic 10/12/17) pls refrain from alcohol Corneal ulcer, right (Inactive ~08/23/18) 08/23/18; [facility] Depression (Chronic) Elev transaminase/LDH (Chronic) due to alcohol Fall (Acute) Falling (Chronic) Genital herpes simplex (Chronic) recurrent gential; suppressive Valtrex GERD (gastroesophageal reflux disease) (Chronic) GI bleed (Resolved 12/20/16) Headache (Resolved) Hyperlipidemia (Chronic) Hypertension (Chronic) high today; she will check readings at home 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 Multiple rib fractures (Resolved) 03/11/19 [facility] Non-cardiac chest pain (Resolved 09/21/16) [facility] 09/21/16 NEGATIVE MP Osteoarthritis (Chronic) Osteopenia (Chronic) 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) Peripheral edema (Acute) Pleural effusion on left (Resolved) [facility] Right rib fracture (Resolved) Sciatica (Chronic) right, epidural injuections [facility] Tendinitis of left rotator cuff (Inactive) Tubular adenoma of colon (Chronic 01/28/17) Urinary incontinence (Chronic) 01/24/13 urethral suspension and sling at [facility] (bladder suspension 1991) Wernicke encephalopathy (Chronic) Surgical History Bladder Surgery suspension Colonoscopy - MAC (01/28/17) EGD - MAC (12/20/16) History of bilateral ligation of fallopian tubes (Inactive) Ligation of fallopian tube Repair bladder injury, simple Family History Mother No problems noted. Father , DROWNED at age 50. No problems noted. Sister Personal history of malignant neoplasm MELANOMA Sister No problems noted. Grandfather Personal history of malignant neoplasm STOMACH Grandfather Personal history of malignant neoplasm PROSTATE Grandmother Heart disease MA Acute ill-defined cerebrovascular disease Grandmother Personal history of malignant neoplasm UTERINE Aunt , MA Heart disease MA Aunt , MA Heart disease Brother No problems noted. Social History Smoking/Tobacco Use Status: Former Tobacco Use Alcohol Intake: current Alcohol Intake frequency: 3 or more drinks per day Alcohol type: hard liquor Drug use: Never Substance use type: does not use Details: last drink at midnight Current gender identity: female Do you feel safe at home: Yes Do you feel safe in your relationship?: Yes Additional Social history:
[2019-11-23] MEDS: Acetaminophen 325 MG TAB 650 MG PO (09:41)
[2019-11-23] MEDS: Fosfomycin Tromethamine 3 GM PACKET PO (09:56)
--- NOTE | 2019-11-23 12:09 | CMDISCH_ITS ---
- If Service Date Differs Date of service: 11/23/19 Time of Service: 12:09 LACE Index Scoring Tool - Questions: Length of Stay (in days): 3 Acuity (Admit via E.D.?): Yes E.D. Visits: 21 - Answers: Total Score: 10 Risk of Readmission: High Risk Care Management Discharge Reason for Hospitalization: Nausea, Alcoholism Discharge Plan: Leticia will return home today with a resumption of services. She has a private caregiver who helps with her medications, as well as MOW. CAPO coordinated a ride with [facility], private vehicle. She will follow up with her PCP and discharge plan of care. Patient/Family Education Needs: Review discharge instructions regarding activity levels and medications, discussion of self care and goals of care. Services Needed at Discharge: Home Health Care Services (resume RN, PT), Transportation ([facility])
== END 2019-11-23 12:00 | disposition home or self-care (01) | DRG 392 ==
LOC: ER 22:44 → MS 23:36
PROVIDERS: Nurse Practitioner Acute Care; Registered Nurse Emergency; Admitting Provider General Practice; Emergency Provider Physician Assistant; PCP Family Medicine; Visit Provider General Practice
DX: K29.20 Alcoholic gastritis without bleeding (principal); E51.2 Wernicke's encephalopathy; F10.20 Alcohol dependence, uncomplicated; E87.6 Hypokalemia; E83.42 Hypomagnesemia; D64.9 Anemia, unspecified; J30.9 Allergic rhinitis, unspecified; G89.29 Other chronic pain; M54.9 Dorsalgia, unspecified; F32.9 Major depressive disorder, single episode, unspecified; M54.12 Radiculopathy, cervical region; K21.9 Gastro-esophageal reflux disease without esophagitis; E78.5 Hyperlipidemia, unspecified; I10 Essential (primary) hypertension; M19.90 Unspecified osteoarthritis, unspecified site; M85.80 Other specified disorders of bone density and structure, unspecified site; M54.31 Sciatica, right side
CPT/HCPCS: 36415; 80048; 80053; 85027; 87077; 93005; 96361; 96365; 96367; 96375; 96376; 99222; 99233; 99239; 99285; 70450; 80320; 81003; 81015; 83605; 83735; 84484; 85025; 87086; 87186; 93010; J1644; J2060; J2405; J3475; J3480; J3490

== ENCOUNTER 2019-12-17 14:31 | Inpatient (IN) | payer OTHER, SELFPAY ==
[2019-12-17] VITALS (33 sets, daily range): BP systolic 160–199; BP diastolic 72–115; PULSE 93–140; RESP 15–26; TEMP 36.4–36.7; O2SAT 94–98
--- NOTE | 2019-12-17 14:45 | DI.CT_ITS ---
EXAM: CT ABDOMEN PELVIS W CLINICAL HISTORY: Vomiting, hematochezia. TECHNIQUE: Imaging Protocol: Axial computed tomography images with coronal and sagittal reformatted images were created and reviewed CONTRAST MATERIAL: Intravenous: Omnipaque 350 Contrast volume:100 ml Oral: no COMPARISON: CT ABDOMEN PELVIS W from 10/30/2019 FINDINGS: ABDOMEN: Lung Bases: Dependent changes. Liver: Marked fatty infiltration. No measurable mass. Gallbladder and biliary tract: No radiodense calculus or dilation. Pancreas: Somewhat atrophic normal density, no abnormal calcifications or inflammatory process. Spleen: Normal. Kidneys: Normal size, contour and axis. No radiodense stones or obstructive uropathy. No masses seen. Multiple bilateral cysts. Adrenal glands: No masses seen. Abdominal Aorta: Abdominal portion non-dilated. Mild calcification. PELVIS: Bladder: Symmetric distention, no gross wall thickening. Bowel: There is a small hiatal hernia. There is no small bowel dilatation. The appendix appears nor mal. The colon is mainly decompressed. No obstruction or bowel wall thickening. Peritoneal cavity: No ascites, collection or mesenteric inflammatory response. Bones: Degenerative changes are noted in the spine.. Reproductive organs: Within normal limits. Lymph nodes: Unremarkable. There is a sub lobulated mass again noted in the in the presacral fat, unchanged. Impression: Stable presacral mass. No acute abnormality.. DATA REPOSITORY: All CT scans at this facility are submitted to the National Radiology Data Registry (NRDR) Dose Index Registry (DIR) with the [employer] (ACR). RADIATION OPTIMIZATION: All CT scans at this facility use at least one of these dose optimization te chniques: automated exposure control; mA and/or kV adjustment per patient size (includes targeted exa ms where dose is matched to clinical indication); or iterative reconstruction.
--- NOTE | 2019-12-17 14:47 | W.ED.GENAD ---
Discharge Plan Disposition Patient Disposition: [facility] INPATIENT Condition: Improving Discharge Details Chief Complaint: Nausea/Vomit/Diar Clinical Impression: Alcohol abuse, Hypertension, Nausea and vomiting in adult, Diarrhea Admit Date/Time: 12/17/19 19:40 Admit Provider: Saeed Cosme Attending Provider: Edilberto Headley Primary Care Provider: Lavelle Galindo ED Provider: Tash [facility] Course Hospital Course: This is a 74 female alcoholic, well known the hospitalist for frequent admissions for alcoholic gastritis and withdrawal. presented to the ED with several days nausea and vomiting. In ED findings of note for k 3.3, Mg 1.o, AST 135, ALT 109, TBili 2.0 and negative EtOH. she was given a banana bag, Ativan, Lopressor and Zofran and admitted for further management. She continued to received IV hydration and her symptoms remained resolved. Her diet was advanced. she had no further symptoms of withdrawal. she was eating and drinking. she continued to c/o diarrhea which has been ongoing for several weeks. Stool was negative for cdiff. Her urine was positive for pansensitive UTI for which she received 2 doses of IV ceftriaxone, she will be discharged to complete her course with keflex. she was also given another 1 gm magnesium IV dose to replete. She was 1.0 on admission and 1.4 this morning. Discharge Instructions Instructions: Abuse of Alcohol (DC), Acute Urinary Retention in Women (GEN) Additional Instructions: finish antibiotics as prescribed. avoid alcohol. Forms: Nursing Discharge Form Referrals: Lavelle Galindo [Primary Care Provider] - 12/21/19 10:40 am (Follow up will be via phone call from Dr. Galindo. ) Discharge Data Discharge Date/Time-TO BE ENTERED AT DEPARTURE: 12/17/19 20:28 Medical Decision Making <Gloria Alvarez - Last Filed: 12/21/19 17:14> 74-year-old female who has a history of chronic alcoholism presents with tachycardia, hypertension and tremors after not drinking since . Patient states that she is a daily drinker. She also is having nausea vomiting diarrhea and reports dark loose stools for the last 2 weeks. She has generalized abdominal pain to palpation. Hyperactive bowel sounds all 4 quadrants. Upon arrival she is tachycardic at 144 hypertensive at 190s over 100. She does have a history of hypokalemia and hypomagnesiemia. Patient has received 1 mg lorazepam IV push which has decreased her tremors. staff field engineer completed a CIWA score which is 13. Ethanol level is less than 3. Magnesium is 1.0. Potassium is 3.3. Sodium is 143. Patient is resting, breathing eupneic. Heart rate remains tachycardic at 124 blood pressure is 172/80 which is an improvement. CT result is pending at this time. A banana bag was ordered to replace magnesium and vitamins. Care is to be handed off to oncoming provider CELINA Villarreal pending CT results and possible admission for alcohol withdrawal syndrome. Hemoccult negative, stool is guaiac negative. At the time of this dictation patient was hemodynamically stable. <CELINA Villarreal - Last Filed: 12/17/19 22:08> Patient transitioned to my care from Janie Alvarez NP with CT imaging pending. Please see her note for initial complaints, presentation and work up. In brief, patient is well-known to myself in the department presenting today for recurrent alcohol withdrawal. She is tachycardic, hypertensive with tremors on presentation. Patient reports no alcohol since . Patient typically drinks copious amounts daily. She is not giving me an exact amount that she drinks but the last time I saw her she had drank a gallon of vodka over 2-1/2 days. Patient was noted to be hypomagnesemic with a magnesium of 1.0. Patient is anemic but this is baseline for the patient. Potassium slightly low at 3.3. Her anion gap is 23 with acute kidney injury with creatinine 1.25. Patient's total bili is elevated at 2.0, AST 119, ALT 105 and alk phos of 158. Patient is an 16 and ALT are quite elevated from her baseline. Her alcohol is nondetectable. Initial troponin is normal. Patient continues to be tachycardic at 120 at this time. She reports to me that she last took her metoprolol on . Plan to give her an oral dose at this time. Will order second liter of fluids. She is receiving banana bag. She has required second dose of Ativan. FINDINGS: Lungs: Minimal atelectasis at bilateral lung bases. Mediastinum: Small hiatal hernia. Liver: Fatty infiltration of the liver. Gallbladder and bile ducts: Normal. No calcified stones. No ductal dilation. Pancreas: Normal. No ductal dilation. Spleen: Normal. No splenomegaly. Adrenals: Normal. No mass. Kidneys and ureters: 1 cm cyst in the midpole of left kidney. Multiple cysts in the right kidney with the largest measuring 2.7 cm in the midpole region. Stomach and bowel: Unremarkable. No obstruction. No mucosal thickening. Appendix: No evidence of appendicitis. Intraperitoneal space: Unremarkable. No free air. No significant fluid collection. Vasculature: Unremarkable. No abdominal aortic aneurysm. Lymph nodes: Unremarkable. No enlarged lymph nodes. Bladder: Unremarkable as visualized. Reproductive: Unremarkable as visualized. Bones/joints: Degenerative changes of the spine. Grade 1 anterolisthesis of L4 over L5 and grade 1 retrolisthesis of L2 over L3. Soft tissues: Bilateral inguinal hernias containing fat. Soft tissue mass in the posterior mid right pelvis measuring approximately 3.6 x 2.8 x 4.9 cm(APXTXCC) not significantly changed from prior study. IMPRESSION: Soft tissue mass in the right mid posterior pelvis unchanged from prior examination of uncertain etiology. Continued follow-up is recommended. Hepatic steatosis. Discussed these findings with the patient at length. I also discussed findings of her laboratory evaluation. Patient is now expressing desire to abstain from alcohol. She does express wishes to go to a rehabilitation center which is unusual for the patient. In the past, she has told me that she would go home and drink because she gets bored. She is now more forward thinking and would like interventions that she is typically refusing. Patient all labs, continue tremors and wished to continue to seek help, I do feel that admission would be appropriate at this time and will discuss with hospitalist. Spoke with care management who will f/u with patient tomorrow [facility] Consulted with Dr. Cosme who agrees on admission. HPI <Gloria Alvarez - Last Filed: 12/21/19 17:14> General Mode of arrival: EMS. Date/Time Provider Initiated Documentation: 12/17/19 14:34. Limitations to Documentation: no limitations. Information obtained by: patient. HPI Narrative: 74-year-old female who has a history of chronic alcoholism presents with tachycardia, hypertension and tremors after not drinking since Thursday. Patient states that she is a daily drinker. She also is having nausea vomiting diarrhea and reports dark loose stools for the last 2 weeks. She has generalized abdominal pain to palpation. Hyperactive bowel sounds all 4 quadrants. Upon arrival she is tachycardic at 144 hypertensive at 190s over 100. She does have a history of hypokalemia and hypomagnesiemia. Related Data Home Medications Medication Instructions Recorded Confirmed folic acid 1 mg PO DAILY #14 tab 08/11/18 12/17/19 multivitamin [Multiple Vitamins] 1 tab PO DAILY #0 tab 05/03/19 12/17/19 Refresh Plus 1 drp OU Q4H WHILE AWAKE #30 each 06/20/19 12/17/19 fluticasone propionate 1 spray NS DAILY #15.8 ml 06/20/19 12/17/19 ipratropium 0.5 mg-albuterol 3 mg 3 ml IH QID PRN #90 ml 06/27/19 12/17/19 (2.5 mg base)/3 mL nebulization soln venlafaxine 150 mg 150 mg PO DAILY #30 cap 06/27/19 12/17/19 capsule,extended release 24 hr venlafaxine 37.5 mg 37.5 mg PO DAILY #30 cap 06/27/19 12/17/19 capsule,extended release 24 hr amlodipine 10 mg tablet 10 mg PO DAILY #90 tab 06/28/19 12/17/19 thiamine mononitrate (vit B1) 100 100 mg PO DAILY #90 tab 06/28/19 12/17/19 mg tablet magnesium oxide 400 mg PO BID #180 cap 07/17/19 12/17/19 ondansetron 4 mg PO Q6H PRN #20 tab 08/15/19 12/17/19 bisacodyl 10 mg PO .q72h prn PRN #10 tab 08/19/19 12/17/19 food supplemt, lactose-reduced 414 ml PO DAILY #32215 ml 08/24/19 12/17/19 pantoprazole 40 mg tablet,delayed 40 mg PO DAILY #90 tab 08/24/19 12/17/19 release gabapentin 300 mg capsule 300 mg PO BID #90 cap 08/28/19 12/17/19 hydrochlorothiazide 12.5 mg tablet 12.5 mg PO DAILY #90 tab 08/28/19 12/17/19 metoprolol tartrate 50 mg tablet 50 mg PO BID #180 tab 08/28/19 12/17/19 sennosides 8.6 mg tablet 8.6 mg PO BID #180 tab 08/28/19 12/17/19 meclizine 25 mg tablet 25 mg PO TID PRN #30 tab 09/14/19 12/17/19 multivitamin 1 tab PO DAILY #90 tab 09/14/19 12/17/19 potassium chloride 10 mEq 10 meq PO DAILY #90 tab 09/14/19 12/17/19 tablet,extended release(part/cryst) loperamide 2 mg PO Q4H PRN #20 cap 11/03/19 12/17/19 promethazine 25 mg PO Q6H PRN #10 tab 11/03/19 12/17/19 dicyclomine 10 mg capsule 10 mg PO QID PRN #40 cap 11/06/19 12/17/19 sucralfate 1 gram tablet 1 g PO AC & HS #120 tab 11/06/19 12/17/19 potassium chloride 20 meq PO BID #10 ea 11/23/19 12/17/19 thiamine mononitrate (vit B1) 100 mg PO DAILY #10 tab 11/23/19 12/17/19 [Vitamin B-1 (mononitrate)] ondansetron HCl 4 mg tablet 4 mg PO Q8H #10 tab 11/26/19 12/17/19 cephalexin 250 mg PO BID #10 cap 12/19/19 Previous Rx's Medication Instructions Recorded folic acid 1 mg PO DAILY #14 tab 08/11/18 multivitamin [Multiple Vitamins] 1 tab PO DAILY #0 tab 05/03/19 Refresh Plus 1 drp OU Q4H WHILE AWAKE #30 each 06/20/19 fluticasone propionate 1 spray NS DAILY #15.8 ml 06/20/19 ipratropium 0.5 mg-albuterol 3 mg 3 ml IH QID PRN #90 ml 06/27/19 (2.5 mg base)/3 mL nebulization soln venlafaxine 150 mg 150 mg PO DAILY #30 cap 06/27/19 capsule,extended release 24 hr venlafaxine 37.5 mg 37.5 mg PO DAILY #30 cap 06/27/19 capsule,extended release 24 hr amlodipine 10 mg tablet 10 mg PO DAILY #90 tab 06/28/19 thiamine mononitrate (vit B1) 100 100 mg PO DAILY #90 tab 06/28/19 mg tablet magnesium oxide 400 mg PO BID #180 cap 07/17/19 ondansetron 4 mg PO Q6H PRN #20 tab 08/15/19 bisacodyl 10 mg PO .q72h prn PRN #10 tab 08/19/19 food supplemt, lactose-reduced 414 ml PO DAILY #37576 ml 08/24/19 pantoprazole 40 mg tablet,delayed 40 mg PO DAILY #90 tab 08/24/19 release gabapentin 300 mg capsule 300 mg PO BID #90 cap 08/28/19 hydrochlorothiazide 12.5 mg tablet 12.5 mg PO DAILY #90 tab 08/28/19 metoprolol tartrate 50 mg tablet 50 mg PO BID #180 tab 08/28/19 sennosides 8.6 mg tablet 8.6 mg PO BID #180 tab 08/28/19 meclizine 25 mg tablet 25 mg PO TID PRN #30 tab 09/14/19 multivitamin 1 tab PO DAILY #90 tab 09/14/19 potassium chloride 10 mEq 10 meq PO DAILY #90 tab 09/14/19 tablet,extended release(part/cryst) loperamide 2 mg PO Q4H PRN #20 cap 11/03/19 promethazine 25 mg PO Q6H PRN #10 tab 11/03/19 dicyclomine 10 mg capsule 10 mg PO QID PRN #40 cap 11/06/19 sucralfate 1 gram tablet 1 g PO AC & HS #120 tab 11/06/19 potassium chloride 20 meq PO BID #10 ea 11/23/19 thiamine mononitrate (vit B1) 100 mg PO DAILY #10 tab 11/23/19 [Vitamin B-1 (mononitrate)] ondansetron HCl 4 mg tablet 4 mg PO Q8H #10 tab 11/26/19 cephalexin 250 mg PO BID #10 cap 12/19/19 Allergies Allergy/AdvReac Type Severity Reaction Status Date / Time Penicillins Allergy Mild Rash Verified 12/17/19 15:39 ramipril Allergy Unknown ITCHING Verified 12/17/19 15:39 meperidine [From Demerol] AdvReac Severe Nausea Verified 12/17/19 15:39 bupropion AdvReac Mild GI upset Verified 12/17/19 15:39 AMBER Inhibitors AdvReac Unknown COUGH Verified 12/17/19 15:39 alendronate sodium AdvReac Unknown GI Distress Verified 12/17/19 15:39 clarithromycin AdvReac Unknown intolerant Verified 12/17/19 15:39 paroxetine AdvReac Unknown Diarrhea Verified 12/17/19 15:39 General Stated Complaint: Nausea/Vomit/Diar JORDAN: 2 Review of Systems <Gloria Alvarez - Last Filed: 12/21/19 17:14> Narrative: Constitutional: Negative for weight loss, alert and oriented, well groomed, obese body habitus, history of alcoholism and alcohol withdrawal. HEENT: Denies trauma, headaches, blurry vision, nasal discharge, sore throat, trouble swallowing. Chest: Denies chest pain, Respiratory: Denies Shortness of breath, cough, hemoptysis. GI: Denies constipation. Positive generalized abdominal pain. : Denies dysuria, hematuria, flank pain. Positive dark loose stools. positive nausea vomiting. Neuro: Denies dizziness, blurry vision, syncope, headache or facial numbness. Positive tremors. Positive weakness. Skin: Appears dry, no suspicious lesions or wounds. No signs of trauma. Hematologic: Denies easy bruising, intolerance to heat or cold, hair loss. Allergic/Immunologic Allergic/Immunologic: Reports system reviewed and no additional complaints, except as documented PFSH <Gloria Alvarez - Last Filed: 12/21/19 17:14> Medical History (Updated 12/21/19 @ 11:26 by Lavelle Galindo) Alcohol abuse (Chronic) Alcoholic ketosis (Resolved) Allergic rhinitis (Chronic) Anemia (Chronic 12/20/16) Back pain, chronic (Chronic) CAP (community acquired pneumonia) (Resolved) Cataract (Chronic 11/07/15) Cervical radicular pain (Chronic) neck pain and [facility] Chronic alcoholic gastritis (Chronic 10/12/17) pls refrain from alcohol Chronic diarrhea (Acute) Corneal ulcer, right (Inactive ~08/23/18) 08/23/18; [facility] Depression (Chronic) Elev transaminase/LDH (Chronic) due to alcohol Fall (Acute) Falling (Chronic) Genital herpes simplex (Chronic) recurrent gential; suppressive Valtrex GERD (gastroesophageal reflux disease) (Chronic) GI bleed (Resolved 12/20/16) Headache (Resolved) Hyperlipidemia (Chronic) Hypertension (Chronic) high today; she will check readings at home 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 Multiple rib fractures (Resolved) 03/11/19 [facility] Non-cardiac chest pain (Resolved 09/21/16[place] [facility] [place] Osteoarthritis (Chronic) Osteopenia (Chronic) 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) Peripheral edema (Acute) Pleural effusion on left (Resolved) 03/11/19 [facility] Right rib fracture (Resolved) Sciatica (Chronic) right, epidural injuections [facility] Tendinitis of left rotator cuff (Inactive) Tubular adenoma of colon (Chronic 01/28/17) Urinary incontinence (Chronic) 01/24/[place] [facility] [place] Wernicke encephalopathy (Chronic) Surgical History Bladder Surgery suspension Colonoscopy - MAC (01/28/17) EGD - MAC (12/20/16) History of bilateral ligation of fallopian tubes (Inactive) Ligation of fallopian tube Repair bladder injury, simple Family History Mother No problems noted. Father , DROWNED at age 50. No problems noted. Sister Personal history of malignant neoplasm MELANOMA Sister No problems noted. Grandfather Personal history of malignant neoplasm STOMACH Grandfather Personal history of malignant neoplasm PROSTATE Grandmother Heart disease CT Acute ill-defined cerebrovascular disease Grandmother Personal history of malignant neoplasm UTERINE Aunt , CT Heart disease CT Aunt , CT Heart disease Brother No problems noted. Social History Smoking/Tobacco Use Status: Former Tobacco Use Alcohol Intake: current Alcohol Intake frequency: 3 or more drinks per day Alcohol type: hard liquor Drug use: Never Substance use type: does not use Details: last drink at midnight Current gender identity: female Do you feel safe at home: Yes Do you feel safe in your relationship?: Yes Additional Social history: Exam <Gloria Alvarez - Last Filed: 12/21/19 17:14> Narrative Exam Narrative: Constitutional: Alert and oriented x3. Appears older than stated age. Normal body habitus. Head: Normocephalic, no trauma. Eyes: Pupils PERRLA, Red reflex noted, EOM's intact. Eyelids symmetrical without lesions, discharge, or swelling. ENT: Bilateral TM's WNL, External ear normal to inspection, no mastoid TTP, swelling, or erythema, Nasal turbinates WNL, no nasal discharge. Normal dentition, Posterior pharynx WNL, no exudate. Chest: Tachycardia at a rate of 140, hypertensive 199/115 distal pulses intact. Resp: Lungs clear to auscultation bilaterally, no wheezes, rales, or rhonchi. Abdomen: Generally tender all 4 quadrants to palpation. Normoactive bowel sounds all 4 quadrants. Musculoskeletal: Tremors noted to upper extremities Skin: No suspicious rashes or lesions. Capillary refill less than 2 sec. Neurologic: Denies visual or auditory hallucinations. Hematologic/Lymphatic: No ecchymosis, no lymphadenopathy. Course <Gloria Alvarez - Last Filed: 12/21/19 17:14> Vital Signs Vital signs: Vital Signs Temperature 36.6 C 12/17/19 14:33 Pulse 140 H 12/17/19 14:33 Respiratory Rate 21 12/17/19 14:33 Blood Pressure 199/115 H 12/17/19 14:33 Pulse Oximetry 96 12/17/19 14:33 Temperature 36.6 C 12/17/19 14:33 Temperature Source Skin 12/17/19 14:33 Pulse 140 H 12/17/19 14:33 Respiratory Rate 21 12/17/19 14:33 Blood Pressure 199/115 H 12/17/19 14:33 Blood Pressure Position Sitting 12/17/19 14:33 Pulse Oximetry 96 12/17/19 14:33 Oxygen Delivery Method Room Air 12/17/19 14:33 Oxygen Flow Rate 0 12/17/19 14:33 Pain Level 5 12/17/19 14:33 Sign Out <Gloria Alvarez - Last Filed: 12/21/19 17:14> Sign Out Data: Sign Out Comment: Pending CT Last updated by Gloria Alvarez at 12/17/19 16:02
[2019-12-17] MEDS: Ondansetron 4 MG/2 ML VIAL IVP (14:58)
[2019-12-17] MEDS: LORazepam 2 MG/ML VIAL 1 MG IVP ×3 (14:58→19:29)
[2019-12-17] MEDS: Normal Saline Flush 10 ML SYR IVP ×2 (14:58→19:30)
[2019-12-17 15:12] LABS: Abs Immature Grans 0.01 k/cumm (0.0-0.09); Absolute Lymphocyte Count 0.28 k/cumm (1.2-3.4); Absolute Monocyte Count 0.29 k/cumm (0.11-0.7); Absolute Neutrophil Count 4.81 k/cumm (1.2-6.7); HCT 33.3 % (36.0-46.0); HGB 10.2 g/dL (12.0-15.5); Immature Grans % 0.2 %; Lymphocytes % 5.2; Mean Corp. HGB Concentration 30.6 g/dL (32.0-36.0); Mean Corpuscular Hemoglobin 26.6 pg (27.0-33.0); Mean Corpuscular Volume 86.9 fL (80-95); Mean Platelet Volume 8.9 fL (8.0-11.0); Monocytes % 5.4; Neutrophils % 89.2; Platelet Count 176 x1000/uL (130-400); RBC 3.83 m/cumm (4.00-5.20); RBC Distribution Width 18.5 % (11.7-14.6); White Blood Cell Count 5.39 k/cumm (4.4-10.8)
[2019-12-17] MEDS: Normal Saline 1,000 ML 1000 ML IV ×2 (15:16→17:05)
[2019-12-17 15:18] LABS: Prothrombin Time 10.4 sec (9.3-11.0)
[2019-12-17 15:25] LABS: ALT 105 U/L (14-59); AST 119 U/L (15-37); Albumin 3.6 g/dL (3.4-5.0); Alkaline Phosphatase 158 U/L (46-116); Anion Gap 23.1 mmol/L (3-11); BUN 9 mg/dL (7-18); CO2 19.9 mmol/L (21.0-32.0); CREATININE 1.25 mg/dL (0.55-1.02); Calcium 9.6 mg/dL (8.5-10.1); Chloride 100 mmol/L (98-107); ETHANOL BLOOD < 3.0 mg/dL (<3); Estimated GFR 42.01 (mL/min/1.73m2); Glucose 174 mg/dL (74-106); Potassium 3.3 mmol/L (3.5-5.1); Sodium 143 mmol/L (136-145); Total Protein 7.3 g/dL (6.4-8.2)
[2019-12-17 15:35] LABS: Troponin I < 0.05 ng/Ml (<0.06)
[2019-12-17] MEDS: Omnipaque 350 MG/ML 100 ML BTL IJ (16:31)
--- NOTE | 2019-12-17 16:49 | DI.VRAD_ITS ---
PROCEDURE INFORMATION: Exam: CT Abdomen And Pelvis With Contrast Exam date and time: 12/17/2019 2:47 PM Age: 74 years old Clinical indication: Vomiting and other: Hematochezia; Patient HX: Vomiting, hematochezia TECHNIQUE: Imaging protocol: Computed tomography of the abdomen and pelvis with intravenous contrast. COMPARISON: CT ABDOMEN PELVIS W 10/30/2019 2:57 AM FINDINGS: Lungs: Minimal atelectasis at bilateral lung bases. Mediastinum: Small hiatal hernia. Liver: Fatty infiltration of the liver. Gallbladder and bile ducts: Normal. No calcified stones. No ductal dilation. Pancreas: Normal. No ductal dilation. Spleen: Normal. No splenomegaly. Adrenals: Normal. No mass. Kidneys and ureters: 1 cm cyst in the midpole of left kidney. Multiple cysts in the right kidney with the largest measuring 2.7 cm in the midpole region. Stomach and bowel: Unremarkable. No obstruction. No mucosal thickening. Appendix: No evidence of appendicitis. Intraperitoneal space: Unremarkable. No free air. No significant fluid collection. Vasculature: Unremarkable. No abdominal aortic aneurysm. Lymph nodes: Unremarkable. No enlarged lymph nodes. Bladder: Unremarkable as visualized. Reproductive: Unremarkable as visualized. Bones/joints: Degenerative changes of the spine. Grade 1 anterolisthesis of L4 over L5 and grade 1 retrolisthesis of L2 over L3. Soft tissues: Bilateral inguinal hernias containing fat. Soft tissue mass in the posterior mid right pelvis measuring approximately 3.6 x 2.8 x 4.9 cm(APXTXCC) not significantly changed from prior study. IMPRESSION: Soft tissue mass in the right mid posterior pelvis unchanged from prior examination of uncertain etiology. Continued follow-up is recommended. Hepatic steatosis. Dictated and Authenticated by: Ubaldo Pettit MD. Ordering:CAMDEN Castro MD
[2019-12-17] MEDS: MAGNESIUM SULFATE 8.12 MEQ, MULTIVITAMIN 10 ML, THIAMINE 100 MG, FOLIC ACID 1 MG in Nor... 168.867 MG IV (17:02)
[2019-12-17] MEDS: Metoprolol 50 MG TAB PO ×2 (17:37→21:23)
--- NOTE | 2019-12-17 19:26 | HPE_ITS ---
Date of service: 12/17/19 Time of Service: 19:27 Assessment and Plan Assessment and plan (1) Nausea: Status: Acute Assessment and plan: Nausea in setting oif alcoholism No doubt once again gastritis, with probaly also an element of alcoholic hepatitis. Will leave NPOL, continue IVF and prn antiemetics and track LFTs. Likely also an elemnet of withdrawal, place on CIWA. Hold diuretic for now. History of Present Illness History of Present Illness Chief Complaint: nausea Narrative: 74 female alcoholic, innumerable admissions foir alcoholic gastritis and withdrawal. States last drink 4 days [employer]. Here with several days nausea and vomiting. In ER findings of note for k 3.3, Mg 1.o, AST 135, ALT 109, TBili 2.0 and negative EtOH. Given banana bag, Ativan, Lopressor and Zorfran. Feels a little better. Admitted for further management. Review of Systems All systems reviewed & are unremarkable except as noted in HPI and below PFSH Medical History Alcohol abuse (Chronic) Alcoholic ketosis (Resolved) Allergic rhinitis (Chronic) Anemia (Chronic 12/20/16) Back pain, chronic (Chronic) CAP (community acquired pneumonia) (Resolved) Cataract (Chronic 11/07/15) Cervical radicular pain (Chronic) neck pain and DJD [facility] Chronic alcoholic gastritis (Chronic 10/12/17) pls refrain from alcohol Corneal ulcer, right (Inactive ~08/23/18) 08/23/18; [facility] Depression (Chronic) Elev transaminase/LDH (Chronic) due to alcohol Fall (Acute) Falling (Chronic) Genital herpes simplex (Chronic) recurrent gential; suppressive Valtrex GERD (gastroesophageal reflux disease) (Chronic) GI bleed (Resolved 12/20/16) Headache (Resolved) Hyperlipidemia (Chronic) Hypertension (Chronic) high today; she will check readings at home 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 Multiple rib fractures (Resolved) 03/11/19 [facility] Non-cardiac chest pain (Resolved 09/21/16) [facility] 09/21/16 NEGATIVE MP Osteoarthritis (Chronic) Osteopenia (Chronic) 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) Peripheral edema (Acute) Pleural effusion on left (Resolved) 03/11/19 [facility] Right rib fracture (Resolved) Sciatica (Chronic) right, epidural injuections [facility] Tendinitis of left rotator cuff (Inactive) Tubular adenoma of colon (Chronic 01/28/17) Urinary incontinence (Chronic) 01/24/13 urethral suspension and sling at [facility] (bladder suspension 1991) Wernicke encephalopathy (Chronic) Surgical History Bladder Surgery suspension Colonoscopy - MAC (01/28/17) EGD - MAC (12/20/16) History of bilateral ligation of fallopian tubes (Inactive) Ligation of fallopian tube Repair bladder injury, simple Family History Mother No problems noted. Father , DROWNED at age 50. No problems noted. Sister Personal history of malignant neoplasm MELANOMA Sister No problems noted. Grandfather Personal history of malignant neoplasm STOMACH Grandfather Personal history of malignant neoplasm PROSTATE Grandmother Heart disease MD Acute ill-defined cerebrovascular disease Grandmother Personal history of malignant neoplasm UTERINE Aunt , MD Heart disease MD Aunt , MD Heart disease Brother No problems noted. Social History Smoking/Tobacco Use Status: Former Tobacco Use Alcohol Intake: current Alcohol Intake frequency: 3 or more drinks per day Alcohol type: hard liquor Drug use: Never Substance use type: does not use Details: last drink at midnight Current gender identity: female Do you feel safe at home: Yes Do you feel safe in your relationship?: Yes Additional Social history: Meds Home Medications and Allergies Home Medications Medication Instructions Recorded Confirmed Type folic acid 1 mg PO DAILY #14 tab 08/11/18 12/17/19 Rx multivitamin [Multiple Vitamins] 1 tab PO DAILY #0 tab 05/03/19 12/17/19 Rx Refresh Plus 1 drp OU Q4H WHILE AWAKE #30 each 06/20/19 12/17/19 Rx fluticasone propionate 1 spray NS DAILY #15.8 ml 06/20/19 12/17/19 Rx ipratropium 0.5 mg-albuterol 3 mg 3 ml IH QID PRN #90 ml 06/27/19 12/17/19 Rx (2.5 mg base)/3 mL nebulization soln venlafaxine 150 mg 150 mg PO DAILY #30 cap 06/27/19 12/17/19 Rx capsule,extended release 24 hr venlafaxine 37.5 mg 37.5 mg PO DAILY #30 cap 06/27/19 12/17/19 Rx capsule,extended release 24 hr amlodipine 10 mg tablet 10 mg PO DAILY #90 tab 06/28/19 12/17/19 Rx thiamine mononitrate (vit B1) 100 100 mg PO DAILY #90 tab 06/28/19 12/17/19 Rx mg tablet magnesium oxide 400 mg PO BID #180 cap 07/17/19 12/17/19 Rx ondansetron 4 mg PO Q6H PRN #20 tab 08/15/19 12/17/19 Rx bisacodyl 10 mg PO .q72h prn PRN #10 tab 08/19/19 12/17/19 Rx food supplemt, lactose-reduced 414 ml PO DAILY #25663 ml 08/24/19 12/17/19 Rx pantoprazole 40 mg tablet,delayed 40 mg PO DAILY #90 tab 08/24/19 12/17/19 Rx release gabapentin 300 mg capsule 300 mg PO BID #90 cap 08/28/19 12/17/19 Rx hydrochlorothiazide 12.5 mg tablet 12.5 mg PO DAILY #90 tab 08/28/19 12/17/19 Rx metoprolol tartrate 50 mg tablet 50 mg PO BID #180 tab 08/28/19 12/17/19 Rx sennosides 8.6 mg tablet 8.6 mg PO BID #180 tab 08/28/19 12/17/19 Rx meclizine 25 mg tablet 25 mg PO TID PRN #30 tab 09/14/19 12/17/19 Rx multivitamin 1 tab PO DAILY #90 tab 09/14/19 12/17/19 Rx potassium chloride 10 mEq 10 meq PO DAILY #90 tab 09/14/19 12/17/19 Rx tablet,extended release(part/cryst) loperamide 2 mg PO Q4H PRN #20 cap 11/03/19 12/17/19 Rx promethazine 25 mg PO Q6H PRN #10 tab 11/03/19 12/17/19 Rx dicyclomine 10 mg capsule 10 mg PO QID PRN #40 cap 11/06/19 12/17/19 Rx sucralfate 1 gram tablet 1 g PO AC & HS #120 tab 11/06/19 12/17/19 Rx potassium chloride 20 meq PO BID #10 ea 11/23/19 12/17/19 Rx thiamine mononitrate (vit B1) 100 mg PO DAILY #10 tab 11/23/19 12/17/19 Rx [Vitamin B-1 (mononitrate)] ondansetron HCl 4 mg tablet 4 mg PO Q8H #10 tab 11/26/19 12/17/19 Rx Allergies Allergy/AdvReac Type Severity Reaction Status Date / Time Penicillins Allergy Mild Rash Verified 12/17/19 15:39 ramipril Allergy Unknown ITCHING Verified 12/17/19 15:39 meperidine [From Demerol] AdvReac Severe Nausea Verified 12/17/19 15:39 bupropion AdvReac Mild GI upset Verified 12/17/19 15:39 AMBER Inhibitors AdvReac Unknown COUGH Verified 12/17/19 15:39 alendronate sodium AdvReac Unknown GI Distress Verified 12/17/19 15:39 clarithromycin AdvReac Unknown intolerant Verified 12/17/19 15:39 paroxetine AdvReac Unknown Diarrhea Verified 12/17/19 15:39 Exam Narrative Exam Narrative: 161/76, 118, 36.6, 16. HEENT no scleral icterus, atraumatic; n zoltan supple; lkungs clear; heart tachy and nregujlar; abdomen soft, mild epigastric tenderness w/o rebound; extremities w/o edema; neuro non-focal, Ox3 Results Labs Result diagrams: 12/17/19 14:45 12/17/19 14:45 Labs: Laboratory Results - last 24 hr 12/17/19 12/17/19 12/17/19 14:45 14:45 14:45 WBC 5.39 RBC 3.83 L Hgb 10.2 L Hct 33.3 L MCV 86.9 MCH 26.6 L MCHC 30.6 L RDW 18.5 H Plt Count 176 D MPV 8.9 Immature Gran % 0.2 Neutrophils % 89.2 Lymphocytes % 5.2 Monocytes % 5.4 Eosinophils % 0.0 Basophils % 0.0 Absolute Neutrophils 4.81 Absolute Lymphocytes 0.28 L Absolute Monocytes 0.29 Absolute Eosinophils 0.00 Absolute Basophils 0.00 PT 10.4 INR 1.0 Sodium 143 Potassium 3.3 L Chloride 100 Carbon Dioxide 19.9 L Anion Gap 23.1 H BUN 9 Creatinine 1.25 H Estimated GFR/1.73 m2 42.01 Glucose 174 H Calcium 9.6 Magnesium 1.0 L Total Bilirubin 2.0 H AST 119 H ALT 105 H Alkaline Phosphatase 158 H Troponin I < 0.05 Total Protein 7.3 Albumin 3.6 Ethyl Alcohol < 3.0 12/17/19 17:44 WBC RBC Hgb Hct MCV MCH MCHC RDW Plt Count MPV Immature Gran % Neutrophils % Lymphocytes % Monocytes % Eosinophils % Basophils % Absolute Neutrophils Absolute Lymphocytes Absolute Monocytes Absolute Eosinophils Absolute Basophils PT INR Sodium Potassium Chloride Carbon Dioxide Anion Gap BUN Creatinine Estimated GFR/1.73 m2 Glucose Calcium Magnesium Total Bilirubin AST ALT Alkaline Phosphatase Troponin I Cancelled Total Protein Albumin Ethyl Alcohol Last Vital Signs Temp 36.6 C 12/17/19 14:33 Pulse 118 H 12/17/19 17:15 Resp 16 12/17/19 17:30 BP 161/76 H 12/17/19 17:15 Pulse Ox 96 12/17/19 17:30 COVID-19 Screening Traveled to [place] from one of the affected countries or regions?: NO Recent travel in the [place] within the last 8 weeks?: No Recent out of the country travel within the last 8 weeks?: No Exposure or possible exposure to illness during travel?: No Had IN PERSON contact w/suspected or confirmed C-19 person: No Have you had the following symptoms in the past few days?: No Symptoms noted since travel?: No Symptoms
[2019-12-17] MEDS: Magnesium Oxide 400 MG TAB PO (21:24)
[2019-12-17] MEDS: Gabapentin 300 MG CAP PO (21:24)
[2019-12-17] MEDS: Sucralfate 1 GM TAB PO (21:24)
[2019-12-17] MEDS: POTASSIUM CHLORIDE/0.9% NACL 1,000 ML 125 MEQ IV (21:25)
[2019-12-17] MEDS: MAGNESIUM SULFATE 2 GM/50 ML BAG IVPB (21:25)
[2019-12-17] MEDS: LORazepam 1 MG TAB PO/SL (22:03)
[2019-12-17] MEDS: Refresh PLUS Eye Drops 0.4ml OU (22:55)
[2019-12-18 03:52] VITALS: BP 166/78; PULSE 73; RESP 17; TEMP 36.3; O2SAT 97
[2019-12-18] MEDS: Refresh PLUS Eye Drops 0.4ml OU ×5 (04:02→21:14)
[2019-12-18] MEDS: Normal Saline Flush 10 ML SYR IVP ×2 (04:05→14:04)
[2019-12-18 07:22] LABS: ALT 93 U/L (14-59); AST 103 U/L (15-37); Bilirubin, Total 2.4 mg/dL (0.2-1.0); Magnesium 2.2 mg/dL (1.8-2.4)
[2019-12-18] MEDS: POTASSIUM CHLORIDE/0.9% NACL 1,000 ML 125 MEQ IV ×2 (07:23→16:45)
[2019-12-18 07:30] VITALS: BP 174/89; PULSE 84; RESP 16; TEMP 36.6; O2SAT 100
[2019-12-18] MEDS: amLODIPine 10 MG TAB PO (08:50)
[2019-12-18] MEDS: Magnesium Oxide 400 MG TAB PO ×2 (08:50→21:14)
[2019-12-18] MEDS: Metoprolol 50 MG TAB PO ×2 (08:50→21:13)
[2019-12-18] MEDS: Venlafaxine 37.5 MG CAPCR PO (08:50)
[2019-12-18] MEDS: Venlafaxine 150 MG CAPCR PO (08:50)
[2019-12-18] MEDS: Thiamine 100 MG TAB PO (08:51)
[2019-12-18] MEDS: Sucralfate 1 GM TAB PO ×4 (08:51→21:14)
[2019-12-18] MEDS: Gabapentin 300 MG CAP PO ×2 (08:51→21:14)
--- NOTE | 2019-12-18 11:43 | W.PM.PROGNOT ---
Date of Service Date of service: 12/18/19 Time of Service: 10:15 Assessment and Plan Assessment and plan (1) Nausea: Status: Acute Assessment and plan: seems to be resolved, will slowly advance diet as tolerated. recurrent and due to ongoing alcoholism, gastritis and multiple electrolyte deficiencies. continue IV PPI. (2) UTI (urinary tract infection): Status: Resolved Assessment and plan: urine culture positive for ecoli, sensitivities pending but will add ceftriaxone based on last culture report of pansensitive ecoli. will add probiotic. Qualifiers: Hematuria presence: without hematuria Urinary tract infection type: acute cystitis Qualified Code(s): N30.00 - Acute cystitis without hematuria (3) Alcohol abuse: Status: Chronic Assessment and plan: Will place on CIWA, thiamine daily. cessation discussed, case management will explore rehabilitation options should she be interested. It is unlikely she will agree to this. (4) Chronic alcoholic gastritis: Status: Chronic Assessment and plan: IV PPI- protonix daily. continue carafate. asking for diet to be advanced. (5) Hypomagnesemia: Status: Resolved Assessment and plan: Due to poor intake, GI losses and alcoholism, will continue with K and Mg replacement, (6) Hypokalemia: Status: Resolved Assessment and plan: Due to poor intake, GI losses and alcoholism, will continue with K and Mg replacement, (7) Discharge planning issues: Status: Acute Assessment and plan: case management following will likely discharge home when taking PO. care provider did call to report that patient drinking 2 bottles of whiskey weekly and that she did drink over the weekend. she also reports that she is non compliant with taking her medications. Subjective Subjective Patient reports: no new complaints Interval history since last seen: patient was resting quietly, refusing to answer questions. nursing staff reports there have been no signs of withdrawal and that she is asking to have her diet advanced. her vitals have been stable and there have been no active issues. Exam Const General: no acute distress and ill appearing chronically Nutritional Appearance: overweight Orientation: other (responds easily to verbal stimuli but does not open eyes or answer verbally) [facility] Head: normal to inspection, normocephalic and atraumatic Resp Effort & Inspection: normal respiratory effort Auscultation: clear to auscultation bilaterally (anteriorly) Cardio Rate: regular rate Rhythm: regular rhythm GI Inspection: normal to inspection and obesity Palpation: soft Auscultation: normal bowel sounds Neuro General: moves all extremities Psych Appearance: disheveled Mental Status: other (withdrawn) Mood: other (withdrawn) Affect: blunted Attitude: avoids eye contact and refuses to answer Insight: poor Judgment: poor Objective Objective Clinical Data: Abnormal lab results 12/17/19 12/17/19 12/18/19 Range/Units 14:45 14:45 06:30 RBC 3.83 L (4.00-5.20) m/cumm Hgb 10.2 L (12.0-15.5) g/dL Hct 33.3 L (36.0-46.0) % MCH 26.6 L (27.0-33.0) pg MCHC 30.6 L (32.0-36.0) g/dL RDW 18.5 H (11.7-14.6) % Absolute Lymphocytes 0.28 L (1.2-3.4) k/cumm Potassium 3.3 L (3.5-5.1) mmol/L Carbon Dioxide 19.9 L (21.0-32.0) mmol/L Anion Gap 23.1 H (3-11) mmol/L Creatinine 1.25 H (0.55-1.02) mg/dL Glucose 174 H (74-106) mg/dL Magnesium 1.0 L (1.8-2.4) mg/dL Total Bilirubin 2.0 H 2.4 H (0.2-1.0) mg/dL AST 119 H 103 H (15-37) U/L ALT 105 H 93 H (14-59) U/L Alkaline Phosphatase 158 H (46-116) U/L Vital Signs Temperature 36.6 C 12/18/19 07:30 Temperature Source Temporal Artery Scan 12/18/19 07:30 Pulse 84 12/18/19 07:30 Pulse Rhythm Regular 12/18/19 04:30 Pulse 118 H 12/17/19 17:30 Respiratory Rate 16 12/18/19 07:30 Respiratory Effort Non-Labored 12/18/19 04:30 Respiratory Depth Normal 12/18/19 04:30 Respiratory Pattern Normal 12/18/19 04:30 Blood Pressure 174/89 H 12/18/19 07:30 Blood Pressure Mean 98 12/17/19 17:15 Blood Pressure Position Sitting 12/17/19 14:33 Pulse Oximetry 100 12/18/19 07:30 Oxygen Delivery Method Room Air 12/18/19 07:30 Oxygen Flow Rate 0 12/18/19 07:30 Pain Level 5 12/17/19 14:33 Intake & Output 12/17/19 12/17/19 12/18/19 11:59 23:59 11:59 Intake Total 2009 1000 / 1000 Output Total 100 / 100 Balance 1909 1000 / 1000 Weight 63.503 kg Intake: IV 2009 1000 / 1000 Output: Urine 100 / 100 Other: Urine Color Pale Yellow Urine Appearance Clear Clear Urine Odor Normal Comment incontinent and bsc to void x 1 Stool Size Large Stool Characteristics Soft Liquid Emesis Description Retching Voiding Methods Bedside Commode Incontinent Laboratory Results WBC 5.39 k/cumm (4.4-10.8) 12/17/19 14:45 RBC 3.83 m/cumm (4.00-5.20) L 12/17/19 14:45 Hgb 10.2 g/dL (12.0-15.5) L 12/17/19 14:45 Hct 33.3 % (36.0-46.0) L 12/17/19 14:45 MCV 86.9 fL (80-95) 12/17/19 14:45 MCH 26.6 pg (27.0-33.0) L 12/17/19 14:45 MCHC 30.6 g/dL (32.0-36.0) L 12/17/19 14:45 RDW 18.5 % (11.7-14.6) H 12/17/19 14:45 Plt Count 176 x1000/uL (130-400) D 12/17/19 14:45 MPV 8.9 fL (8.0-11.0) 12/17/19 14:45 Immature Gran % 0.2 % 12/17/19 14:45 Neutrophils % 89.2 12/17/19 14:45 Lymphocytes % 5.2 12/17/19 14:45 Monocytes % 5.4 12/17/19 14:45 Eosinophils % 0.0 12/17/19 14:45 Basophils % 0.0 12/17/19 14:45 Absolute Neutrophils 4.81 k/cumm (1.2-6.7) 12/17/19 14:45 Absolute Lymphocytes 0.28 k/cumm (1.2-3.4) L 12/17/19 14:45 Absolute Monocytes 0.29 k/cumm (0.11-0.7) 12/17/19 14:45 Absolute Eosinophils 0.00 k/cumm (0.0-0.7) 12/17/19 14:45 Absolute Basophils 0.00 k/cumm (0.0-0.2) 12/17/19 14:45 PT 10.4 sec (9.3-11.0) 12/17/19 14:45 INR 1.0 (0.9-1.1) 12/17/19 14:45 Sodium 143 mmol/L (136-145) 12/17/19 14:45 Potassium 3.3 mmol/L (3.5-5.1) L 12/17/19 14:45 Chloride 100 mmol/L (98-107) 12/17/19 14:45 Carbon Dioxide 19.9 mmol/L (21.0-32.0) L 12/17/19 14:45 Anion Gap 23.1 mmol/L (3-11) H 12/17/19 14:45 BUN 9 mg/dL (7-18) 12/17/19 14:45 Creatinine 1.25 mg/dL (0.55-1.02) H 12/17/19 14:45 Estimated GFR/1.73 m2 42.01 (mL/min/1.73m2) 12/17/19 14:45 Glucose 174 mg/dL (74-106) H 12/17/19 14:45 Calcium 9.6 mg/dL (8.5-10.1) 12/17/19 14:45 Magnesium 2.2 mg/dL (1.8-2.4) 12/18/19 06:30 Total Bilirubin 2.4 mg/dL (0.2-1.0) H 12/18/19 06:30 AST 103 U/L (15-37) H 12/18/19 06:30 ALT 93 U/L (14-59) H 12/18/19 06:30 Alkaline Phosphatase 158 U/L (46-116) H 12/17/19 14:45 Troponin I Cancelled 12/17/19 17:44 Total Protein 7.3 g/dL (6.4-8.2) 12/17/19 14:45 Albumin 3.6 g/dL (3.4-5.0) 12/17/19 14:45 Ethyl Alcohol < 3.0 mg/dL (<3) 12/17/19 14:45
--- NOTE | 2019-12-18 12:54 | PDOC.CMIN ---
- If Service Date Differs Date of service: 12/18/19 Time of Service: 12:54 Care Management Initial Assess REASON FOR HOSPITALIZATION:: Nausea, Alcohol Withdrawal PAST MEDICAL HISTORY/PAST SURGICAL HISTORY:: Medical History . Alcohol abuse (Chronic). Alcoholic ketosis (Resolved). Allergic rhinitis (Chronic). Anemia (Chronic 12/20/16). Back pain, chronic (Chronic). CAP (community acquired pneumonia) (Resolved). Cataract (Chronic 11/07/15). Cervical radicular pain (Chronic). neck pain and DJD. [facility]. Chronic alcoholic gastritis (Chronic 10/12/17). pls refrain from alcohol. Corneal ulcer, right (Inactive ~08/23/18). 08/23/18; [facility]. Depression (Chronic). Elev transaminase/LDH (Chronic). due to alcohol. Fall (Acute). Falling (Chronic). Genital herpes simplex (Chronic). recurrent gential; suppressive Valtrex. GERD (gastroesophageal reflux disease) (Chronic). GI bleed (Resolved 12/20/16). Headache (Resolved). Hyperlipidemia (Chronic). Hypertension (Chronic). high today; she will check readings at home. Macrocytosis (Chronic 09/26/14). due to alcohol. Multiple rib fractures (Resolved). 03/11/19 [facility]. Non-cardiac chest pain (Resolved 09/21/16). [facility] 09/21/16 NEGATIVE MP. Osteoarthritis (Chronic). Osteopenia (Chronic). 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). Peripheral edema (Acute). Pleural effusion on left (Resolved). 03/11/19 [facility]. Right rib fracture (Resolved). Sciatica (Chronic). right, epidural injuections. [facility]. Tendinitis of left rotator cuff (Inactive). Tubular adenoma of colon (Chronic 01/28/17). Urinary incontinence (Chronic). 01/24/13 urethral suspension and sling at [facility]. (bladder suspension 1991). Wernicke encephalopathy (Chronic). Surgical History . Bladder Surgery. suspension. Colonoscopy - MAC (01/28/17). EGD - MAC (12/20/16). History of bilateral ligation of fallopian tubes (Inactive). Ligation of fallopian tube. Repair bladder injury, simple PREVIOUS FUNCTIONAL STATUS/SOCIAL/FAMILY SUPPORTS:: Leticia lives alone in [place]. She has a private caregiver who assists her with medication management and housekeeping. Leticia is otherwise independent with ADLs. She states she no longer drives and takes RCT to appointments. CURRENT FUNCTIONAL STATUS:: Leticia was sitting up in bed, resting when CM met with her. She opened her eyes and asked for ice chips. CM discussed this with her nurse, who stated that she is currently NPO. CM spoke with her caregiver, Armida extensively regarding the care she provides to Leticia at home. She stated that Leticia has not been taking her medication for over a week and that she drinks heavily, daily. CM attempted to visit with Leticia again, which was unsuccessful as she was sleeping. CM will continue to follow. ADVANCE DIRECTIVES:: DNR/COLST on file dwayne Avery is agent Has patient been provided with information about the portal?: Yes Did the patient sign up for the portal?: Yes CODE STATUS:: DNR/DNI INSURANCE COVERAGE / FINANCIAL ISSUES:: [facility] CURRENT HOME/COMMUNITY SERVICES/EQUIPMENT:: private caregiver, MOW, FWW. RN and OT PRIMARY CARE PHYSICIAN:: Lavelle Galindo POTENTIAL DISCHARGE NEEDS:: Follow up with PCP and discharge plan of care PATIENT/FAMILY EDUCATION NEEDS:: Discharge plan, limitations, follow up plan, Ask Me Three ANTICIPATED BARRIERS TO DISCHARGE:: None identified at this time. TRANSPORTATION:: via RCT coordinated by CM PLAN:: Leticia will likely return home with a resumption of services. She has a private caregiver, MOW and nursing and OT. She will follow up with her PCP and discharge plan of care and transport via RCT. CM will continue to follow and support Leticia and her discharge planning needs. Readmission - Within the Past 30 Days Yes or No: Y - Date of First Admission Date of 1st Admission: 11/21/19 - Date of this Admission Date of Admission: 12/17/19 This admission was: Through ED - Office Visit Since 1st Admission Have you seen your PCP in the office since discharge?: Yes Date of PCP Appointment: 12/05/19 - ED visits How many ED visits in the past 12 months: 22 - Assessment for Readmission Summary of readmission circumstances, based upon interviews: Leticia was unable to participate in the interview today due to her sleeping at every attempt to visit with CM. She did wake up at one time and asked for ice chips. CM discussed her care at home with her private care provider, Armida, who stated that Leticia was not taking her meds as prescribed for at least a week, and that she was drinking heavily, which is her baseline. CM relayed this information to the provider. Per reports, Leticia had a telehealth PCP visit between admissions, where she was encouraged not to drink. CM will continue to follow.
[2019-12-18] MEDS: cefTRIAXone 1 GM/50 ML BAG IVPB (14:04)
[2019-12-18] MEDS: Pantoprazole 40 MG VIAL IVP (14:05)
[2019-12-18 16:01] VITALS: BP 163/105; PULSE 80; RESP 18; TEMP 36.6; O2SAT 95
[2019-12-18] MEDS: Loperamide 2 MG CAP PO (17:44)
[2019-12-18 19:16] VITALS: BP 128/81; PULSE 63; RESP 17; TEMP 36.6; O2SAT 96
[2019-12-18] MEDS: LORazepam 1 MG TAB PO/SL (21:13)
[2019-12-18 23:53] VITALS: BP 157/90; PULSE 83; RESP 20; TEMP 36.4; O2SAT 97
[2019-12-19] MEDS: LORazepam 1 MG TAB PO/SL (01:18)
[2019-12-19] MEDS: Ondansetron 4 MG/2 ML VIAL IVP (03:42)
[2019-12-19] MEDS: Normal Saline Flush 10 ML SYR IVP ×2 (03:42→09:03)
[2019-12-19] MEDS: Refresh PLUS Eye Drops 0.4ml OU ×4 (03:42→12:52)
[2019-12-19 06:50] LABS: Abs Immature Grans 0.01 k/cumm (0.0-0.09); Absolute Basophil Count 0.01 k/cumm (0.0-0.2); Absolute Lymphocyte Count 0.82 k/cumm (1.2-3.4); Absolute Monocyte Count 0.44 k/cumm (0.11-0.7); Absolute Neutrophil Count 2.54 k/cumm (1.2-6.7); Basophils % 0.3; HCT 30.3 % (36.0-46.0); HGB 9.3 g/dL (12.0-15.5); Immature Grans % 0.3 %; Lymphocytes % 21.5; Mean Corp. HGB Concentration 30.7 g/dL (32.0-36.0); Mean Corpuscular Hemoglobin 27.4 pg (27.0-33.0); Mean Corpuscular Volume 89.1 fL (80-95); Mean Platelet Volume 9.3 fL (8.0-11.0); Monocytes % 11.5; Neutrophils % 66.4; Platelet Count 171 x1000/uL (130-400); RBC Distribution Width 18.2 % (11.7-14.6); White Blood Cell Count 3.82 k/cumm (4.4-10.8)
[2019-12-19 07:05] LABS: ALT 76 U/L (14-59); AST 70 U/L (15-37); Alkaline Phosphatase 131 U/L (46-116); Anion Gap 9.1 mmol/L (3-11); BUN 4 mg/dL (7-18); Bilirubin, Total 1.5 mg/dL (0.2-1.0); CO2 23.9 mmol/L (21.0-32.0); CREATININE 0.94 mg/dL (0.55-1.02); Calcium 8.1 mg/dL (8.5-10.1); Chloride 101 mmol/L (98-107); Estimated GFR 58.37 (mL/min/1.73m2); Glucose 109 mg/dL (74-106); Magnesium 1.4 mg/dL (1.8-2.4); Potassium 3.6 mmol/L (3.5-5.1); Sodium 134 mmol/L (136-145); Total Protein 6.2 g/dL (6.4-8.2)
[2019-12-19 07:15] VITALS: BP 179/93; PULSE 97; RESP 20; TEMP 36.7; O2SAT 98
[2019-12-19 07:17] LABS: Anisocytosis 2+; Diff Comment RBC Morph Reviewed; Poikilocytes 1+; Polychromasia Present
[2019-12-19] MEDS: Pantoprazole 40 MG VIAL IVP (09:02)
[2019-12-19] MEDS: amLODIPine 10 MG TAB PO (09:03)
[2019-12-19] MEDS: Sucralfate 1 GM TAB PO ×2 (09:03→12:53)
[2019-12-19] MEDS: Gabapentin 300 MG CAP PO (09:03)
[2019-12-19] MEDS: Metoprolol 50 MG TAB PO (09:03)
[2019-12-19] MEDS: Thiamine 100 MG TAB PO (09:03)
[2019-12-19] MEDS: Venlafaxine 37.5 MG CAPCR PO (09:03)
[2019-12-19] MEDS: Venlafaxine 150 MG CAPCR PO (09:03)
[2019-12-19] MEDS: Magnesium Oxide 400 MG TAB PO (09:03)
--- NOTE | 2019-12-19 09:53 | W.PM.DS.N ---
Date of service: 12/19/19 Time of Service: 09:54 DS: Diagnosis Discharge Diagnosis (1) Nausea: Status: Resolved (2) UTI (urinary tract infection): Status: Acute Asessment and Plan: connor sensitive ecoli, received 2 doses of IV ceftriaxone while hospitalized. will discharge home on keflex for 5 more days (3) Alcohol abuse: Status: Chronic Asessment and Plan: states she wants to abstain, does not want rehab. liver functions improving Tbili down to 1.5 from 2.4 improved transaminases (4) Chronic alcoholic gastritis: Status: Chronic Asessment and Plan: will continue carafate at discharge. hemoglobin at baseline, 9-10, slight drop since admission d/t IV hydration (5) Hypomagnesemia: Status: Resolved Asessment and Plan: mag was up from 1.0 to 1.4 today, given 1 gm IV prior to discharge (6) Hypokalemia: Status: Resolved Asessment and Plan: potassium 3.6 with oral replacement. Discharge Plan Disposition Patient Disposition: HOME Condition: Improving Discharge Details Chief Complaint: Nausea/Vomit/Diar Clinical Impression: Alcohol abuse, Hypertension, Nausea and vomiting in adult, Diarrhea Reason For Visit: NAUSEA, ALCOHOL WITHDRAWAL Admit Date/Time: 12/17/19 19:40 Admit Provider: Saeed Cosme Attending Provider: Saeed Cosme Primary Care Provider: Lavelle Galindo ED Provider: Tash Servin Hospital Course Hospital Course: This is a 74 female alcoholic, well known the hospitalist for frequent admissions for alcoholic gastritis and withdrawal. presented to the ED with several days nausea and vomiting. In ED findings of note for k 3.3, Mg 1.o, AST 135, ALT 109, TBili 2.0 and negative EtOH. she was given a banana bag, Ativan, Lopressor and Zofran and admitted for further management. She continued to received IV hydration and her symptoms remained resolved. Her diet was advanced. she had no further symptoms of withdrawal. she was eating and drinking. she continued to c/o diarrhea which has been ongoing for several weeks. Stool was negative for cdiff. Her urine was positive for pansensitive UTI for which she received 2 doses of IV ceftriaxone, she will be discharged to complete her course with keflex. she was also given another 1 gm magnesium IV dose to replete. She was 1.0 on admission and 1.4 this morning. Home Meds and New Rx's Prescriptions: New cephalexin 250 mg capsule 250 mg PO BID Qty: 10 RF: 0 Continued meclizine 25 mg tablet 25 mg PO TID PRN (Reason: dizziness) Qty: 30 RF: 1 venlafaxine 37.5 mg capsule,extended release 24hr 37.5 mg PO DAILY Qty: 30 RF: 11 venlafaxine 150 mg capsule,extended release 24hr 150 mg PO DAILY Qty: 30 RF: 11 ipratropium-albuterol 0.5 mg-3 mg(2.5 mg base)/3 mL solution for nebulization 3 ml IH QID PRN (Reason: shortness of breath) Qty: 90 RF: 3 hydrochlorothiazide 12.5 mg tablet 12.5 mg PO DAILY Qty: 90 RF: 3 gabapentin 300 mg capsule 300 mg PO BID Qty: 90 RF: 5 metoprolol tartrate 50 mg tablet 50 mg PO BID Qty: 180 RF: 3 sennosides [Senokot] 8.6 mg tablet 8.6 mg PO BID Qty: 180 RF: 3 magnesium oxide 400 mg magnesium capsule 400 mg PO BID Qty: 180 RF: 3 amlodipine 10 mg tablet 10 mg PO DAILY Qty: 90 RF: 3 thiamine mononitrate (vit B1) [Vitamin B-1 (mononitrate)] 100 mg tablet 100 mg PO DAILY Qty: 90 RF: 3 pantoprazole 40 mg tablet,delayed release (DR/EC) 40 mg PO DAILY Qty: 90 RF: 3 Ensure Active High Protein Liquid 414 ml PO DAILY Qty: 04562 RF: 11 multivitamin [Multiple Vitamins] Tablet 1 tab PO DAILY Qty: 90 RF: 3 potassium chloride [Klor-Con M10] 10 mEq tablet,ER particles/crystals 10 meq PO DAILY Qty: 90 RF: 3 dicyclomine 10 mg capsule 10 mg PO QID PRN (Reason: belly pain) Qty: 40 RF: 0 sucralfate 1 gram tablet 1 g PO AC & HS Qty: 120 RF: 5 ondansetron HCl [Zofran] 4 mg tablet 4 mg PO Q8H Qty: 10 RF: 2 folic acid 1 mg Tablet 1 mg PO DAILY Qty: 14 RF: 0 multivitamin [Multiple Vitamins] Tablet 1 tab PO DAILY Qty: 0 RF: 0 Refresh Plus 0.5 % Dropperette 1 drp OU Q4H WHILE AWAKE Qty: 30 RF: 0 fluticasone propionate 50 mcg/actuation [place],Suspension 1 spray NS DAILY Qty: 15.8 RF: 0 ondansetron 4 mg tablet,disintegrating 4 mg PO Q6H PRN (Reason: nausea and vomiting) Qty: 20 RF: 0 bisacodyl 5 mg Tablet,Delayed Release (Dr/Ec) 10 mg PO .q72h prn PRN (Reason: constipation - if no BM In 3 days) Qty: 10 RF: 0 promethazine 25 mg tablet 25 mg PO Q6H PRN (Reason: nausea and vomiting) Qty: 10 RF: 0 loperamide 2 mg capsule 2 mg PO Q4H PRN (Reason: loose stool) Qty: 20 RF: 0 potassium chloride 20 mEq Packet 20 meq PO BID Qty: 10 RF: 0 thiamine mononitrate (vit B1) [Vitamin B-1 (mononitrate)] 100 mg Tablet 100 mg PO DAILY Qty: 10 RF: 0 Discharge Instructions Instructions: Abuse of Alcohol (DC), Acute Urinary Retention in Women (GEN) Additional Instructions: finish antibiotics as prescribed. avoid alcohol. Activity:: Activity as Tolerated Equipment/Supplies:: No Equipment Needed Diet:: As Tolerated Discharge Orders Discharge Orders: Discharge Order (Routine); Ordered 12/19/19 Ordered By: Kimmy Sierra DS: Summary Status at Discharge Functional status at discharge: independent ambulation Overall status at discharge: patient is progressing back to baseline Mental Status: mental status grossly normal Speech and Movement: speech and movement normal Mood: congruent mood Affect: blunted (flat affect) Exam Const General: cooperative, no acute distress and ill appearing (older appearing than stated age) chronically Nutritional Appearance: overweight Orientation: alert, awake and oriented x3 HENMT Head: normal to inspection, normocephalic and atraumatic Resp Effort & Inspection: normal respiratory effort Auscultation: clear to auscultation bilaterally Cardio Rate: regular rate Rhythm: regular rhythm GI Inspection: obesity Palpation: soft Auscultation: normal bowel sounds Extrem General: normal to inspection and full ROM Psych Appearance: disheveled Mental Status: mental status grossly normal Speech and Movement: speech and movement normal Mood: congruent mood Affect: blunted (flat affect) Attitude: cooperative Thought Process: normal Thought Content: normal Insight: fair Judgment: poor DS: Data Vitals/I&O Vitals and I&O: Vital Signs Temperature 36.7 C 12/19/19 07:15 Temperature Source Temporal Artery Scan 12/19/19 07:15 Pulse 97 H 12/19/19 07:15 Pulse Rhythm Regular 12/19/19 03:46 Pulse 118 H 12/17/19 17:30 Respiratory Rate 12/19/19 07:15 Respiratory Effort 12/19/19 03:46 Respiratory Depth Normal 12/19/19 03:46 Respiratory Pattern Normal 12/19/19 03:46 Blood Pressure 179/93 H 12/19/19 07:15 Blood Pressure Mean 98 12/17/19 17:15 Blood Pressure Position Sitting 12/17/19 14:33 Pulse Oximetry 98 12/19/19 07:15 Oxygen Delivery Method Room Air 12/19/19 07:15 Oxygen Flow Rate 0 12/19/19 07:15 Pain Level 2 12/18/19 19:16 Intake & Output 12/18/19 12/18/19 12/19/19 11:59 23:59 11:59 Intake Total 1000 / 2290 1290 / 2290 1000 / 1000 Output Total 175 / 175 Balance 1000 / 2290 1290 / 2290 825 / 825 Intake: IV 1000 / 2050 1050 / 2050 1000 / 1000 Oral 240 / 240 Output: Urine 175 / 175 Other: Urine Color Yellow Yellow Yellow Urine Appearance Clear Clear Clear Urine Odor Normal None None Comment incontinent and bsc to void x 1 pt was incontinent Stool Occult Blood Negative Stool Size Smear Stool Characteristics Soft Emesis Description None Voiding Methods Bedside Commode Bedside Commode Bedside Commode Incontinent Data Completed and Pending Labs on day of discharge: Labs from last 24 hours 12/19/19 12/19/19 06:40 06:40 WBC 3.82 L RBC 3.40 L Hgb 9.3 L Hct 30.3 L MCV 89.1 MCH 27.4 MCHC 30.7 L RDW 18.2 H Plt Count 171 MPV 9.3 Immature Gran % 0.3 Neutrophils % 66.4 Lymphocytes % 21.5 Monocytes % 11.5 Eosinophils % 0.0 Basophils % 0.3 Absolute Neutrophils 2.54 Absolute Lymphocytes 0.82 L Absolute Monocytes 0.44 Absolute Eosinophils 0.00 Absolute Basophils 0.01 Differential Comment Rbc morph reviewed RBC Morphology See below Polychromasia Present Poikilocytosis 1+ Anisocytosis 2+ Sodium 134 L Potassium 3.6 Chloride 101 Carbon Dioxide 23.9 Anion Gap 9.1 BUN 4 L Creatinine 0.94 Estimated GFR/1.73 m2 58.37 Glucose 109 H D Calcium 8.1 L Magnesium 1.4 L Total Bilirubin 1.5 H AST 70 H ALT 76 H Alkaline Phosphatase 131 H Total Protein 6.2 L Albumin 3.0 L [facility] Medical History Alcohol abuse (Chronic) Alcoholic ketosis (Resolved) Allergic rhinitis (Chronic) Anemia (Chronic 12/20/16) Back pain, chronic (Chronic) CAP (community acquired pneumonia) (Resolved) Cataract (Chronic 11/07/15) Cervical radicular pain (Chronic) neck pain and [facility] Chronic alcoholic gastritis (Chronic 10/12/17) pls refrain from alcohol Corneal ulcer, right (Inactive ~08/23/18) 08/23/18; [facility] Depression (Chronic) Elev transaminase/LDH (Chronic) due to alcohol Fall (Acute) Falling (Chronic) Genital herpes simplex (Chronic) recurrent gential; suppressive Valtrex GERD (gastroesophageal reflux disease) (Chronic) GI bleed (Resolved 12/20/16) Headache (Resolved) Hyperlipidemia (Chronic) Hypertension (Chronic) high today; she will check readings at home 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 Multiple rib fractures (Resolved) 03/11/19 [facility] Non-cardiac chest pain (Resolved 09/21/16) [facility] [place] 09/21/16 NEGATIVE MP Osteoarthritis (Chronic) Osteopenia (Chronic) 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) Peripheral edema (Acute) Pleural effusion on left (Resolved) 03/11/19 [facility] Right rib fracture (Resolved) Sciatica (Chronic) right, epidural injuections [facility] Tendinitis of left rotator cuff (Inactive) Tubular adenoma of colon (Chronic 01/28/17) Urinary incontinence (Chronic) 01/24/13 urethral suspension and sling at [facility] [place] (bladder suspension 1991) Wernicke encephalopathy (Chronic) Surgical History Bladder Surgery suspension Colonoscopy - MAC (01/28/17) EGD - MAC (12/20/16) History of bilateral ligation of fallopian tubes (Inactive) Ligation of fallopian tube Repair bladder injury, simple Family History Mother No problems noted. Father , DROWNED at age 50. No problems noted. Sister Personal history of malignant neoplasm MELANOMA Sister No problems noted. Grandfather Personal history of malignant neoplasm STOMACH Grandfather Personal history of malignant neoplasm PROSTATE Grandmother Heart disease CO Acute ill-defined cerebrovascular disease Grandmother Personal history of malignant neoplasm UTERINE Aunt , CO Heart disease CO Aunt , CO Heart disease Brother No problems noted. Social History Smoking/Tobacco Use Status: Former Tobacco Use Alcohol Intake: current Alcohol Intake frequency: 3 or more drinks per day Alcohol type: hard liquor Drug use: Never Substance use type: does not use Details: last drink at midnight Current gender identity: female Do you feel safe at home: Yes Do you feel safe in your relationship?: Yes Additional Social history:
[2019-12-19] MEDS: MAGNESIUM SULFATE 1 GM/100 ML BAG IVPB (10:04)
[2019-12-19 10:24] VITALS: BP 137/91; BP 167/95; PULSE 107; PULSE 66
[2019-12-19 12:03] VITALS: BP 121/83; PULSE 77; RESP 18; TEMP 37; O2SAT 95
[2019-12-19] MEDS: cefTRIAXone 1 GM/50 ML BAG IVPB (12:39)
--- NOTE | 2019-12-19 15:29 | PDOC.CMDIS ---
- If Service Date Differs Date of service: 12/19/19 Time of Service: 15:29 LACE Index Scoring Tool - Questions: Length of Stay (in days): 3 Acuity (Admit via E.D.?): Yes E.D. Visits: 22 - Answers: Total Score: 10 Risk of Readmission: High Risk Care Management Discharge Reason for Hospitalization: Nausea, Alcohol Withdrawal Discharge Plan: Leticia will return home with a resumption of home health nursing. CM called her caregiver, Armida, to inform her of Leticia's discharge. CM coordinated RCT transportation home for Leticia. CM provided resources for quitting drinking including rehab facilities, recovery room nurse, and intensive outpatient therapy. Leticia stated that she would consider them. CM provided guidance to Leticia's caregiver regarding precautions while she continues to care for Leticia, although she was not under suspicion for Covid 19 while at [facility]. Leticia was agreeable to returning home. Patient/Family Education Needs: Review discharge instructions regarding activity levels and medications, discussion of self care needs including ask me three and goals of care. Services Needed at Discharge: Transportation (RCT pv)
== END 2019-12-19 14:12 | disposition home or self-care (01) | DRG 392 ==
LOC: ER 20:26 → MS 20:35
PROVIDERS: Nurse Practitioner Acute Care; Registered Nurse Emergency; Admitting Provider General Practice; Emergency Provider Physician Assistant; PCP Family Medicine; Visit Provider Internal Medicine
DX: R11.2 Nausea with vomiting, unspecified (principal); N39.0 Urinary tract infection, site not specified; K29.20 Alcoholic gastritis without bleeding; F10.20 Alcohol dependence, uncomplicated; B96.20 Unspecified Escherichia coli [E. coli] as the cause of diseases classified elsewhere; E83.42 Hypomagnesemia; E87.6 Hypokalemia; K21.9 Gastro-esophageal reflux disease without esophagitis; I10 Essential (primary) hypertension; E78.5 Hyperlipidemia, unspecified
CPT/HCPCS: 36415; 51702; 80053; 87077; 96361; 96365; 96366; 96375; 96376; 99222; 99233; 99239; 99285; 74177; 80320; 82247; 83735; 84450; 84460; 84484; 85025; 85610; 87086; 87186; 87324; J0696; J2060; J2405; J3475; J3490

== ENCOUNTER 2019-12-25 19:18 | Emergency (ER) | payer OTHER, SELFPAY ==
[2019-12-25 19:18] VITALS: BP 162/93; PULSE 118; RESP 16; TEMP 36.6; O2SAT 98
--- NOTE | 2019-12-25 19:30 | DI.RAD_ITS ---
EXAM: XR CHEST 2V PA LATERAL CLINICAL HISTORY: cough TECHNIQUE: COMPARISON: XR ABD FLAT UPRIGHT PA CHEST from 08/15/2019 FINDINGS: The heart is mildly enlarged. Lungs appear clear and well expanded. No pleural effusion seen. Pres umed pleural scarring noted laterally on the left, unchanged from 08/15/2019. There are multiple bilateral healed rib fractures and a prior resection of distal end of left clavicl e. IMPRESSION: Cardiomegaly, no evidence of acute process.
--- NOTE | 2019-12-25 19:35 | W.ED.GENAD ---
Discharge Plan Disposition Patient Disposition: HOME Condition: Stable Discharge Details Chief Complaint: Abd Prob Clinical Impression: Gastritis, Nausea & vomiting Primary Care Provider: Lavelle Galindo ED Provider: Diana Luu Home Meds and New Rx's Prescriptions: No Action meclizine 25 mg tablet 25 mg PO TID PRN (Reason: dizziness) Qty: 30 RF: 1 venlafaxine 37.5 mg capsule,extended release 24hr 37.5 mg PO DAILY Qty: 30 RF: 11 venlafaxine 150 mg capsule,extended release 24hr 150 mg PO DAILY Qty: 30 RF: 11 ipratropium-albuterol 0.5 mg-3 mg(2.5 mg base)/3 mL solution for nebulization 3 ml IH QID PRN (Reason: shortness of breath) Qty: 90 RF: 3 hydrochlorothiazide 12.5 mg tablet 12.5 mg PO DAILY Qty: 90 RF: 3 gabapentin 300 mg capsule 300 mg PO BID Qty: 90 RF: 5 metoprolol tartrate 50 mg tablet 50 mg PO BID Qty: 180 RF: 3 sennosides [Senokot] 8.6 mg tablet 8.6 mg PO BID Qty: 180 RF: 3 magnesium oxide 400 mg magnesium capsule 400 mg PO BID Qty: 180 RF: 3 amlodipine 10 mg tablet 10 mg PO DAILY Qty: 90 RF: 3 thiamine mononitrate (vit B1) [Vitamin B-1 (mononitrate)] 100 mg tablet 100 mg PO DAILY Qty: 90 RF: 3 pantoprazole 40 mg tablet,delayed release (DR/EC) 40 mg PO DAILY Qty: 90 RF: 3 Ensure Active High Protein Liquid 414 ml PO DAILY Qty: 70128 RF: 11 multivitamin [Multiple Vitamins] Tablet 1 tab PO DAILY Qty: 90 RF: 3 potassium chloride [Klor-Con M10] 10 mEq tablet,ER particles/crystals 10 meq PO DAILY Qty: 90 RF: 3 dicyclomine 10 mg capsule 10 mg PO QID PRN (Reason: belly pain) Qty: 40 RF: 0 sucralfate 1 gram tablet 1 g PO AC & HS Qty: 120 RF: 5 ondansetron HCl [Zofran] 4 mg tablet 4 mg PO Q8H Qty: 10 RF: 2 folic acid 1 mg Tablet 1 mg PO DAILY Qty: 14 RF: 0 multivitamin [Multiple Vitamins] Tablet 1 tab PO DAILY Qty: 0 RF: 0 Refresh Plus 0.5 % Dropperette 1 drp OU Q4H WHILE AWAKE Qty: 30 RF: 0 fluticasone propionate 50 mcg/actuation Whigham,Suspension 1 spray NS DAILY Qty: 15.8 RF: 0 ondansetron 4 mg tablet,disintegrating 4 mg PO Q6H PRN (Reason: nausea and vomiting) Qty: 20 RF: 0 bisacodyl 5 mg Tablet,Delayed Release (Dr/Ec) 10 mg PO .q72h prn PRN (Reason: constipation - if no BM In 3 days) Qty: 10 RF: 0 promethazine 25 mg tablet 25 mg PO Q6H PRN (Reason: nausea and vomiting) Qty: 10 RF: 0 loperamide 2 mg capsule 2 mg PO Q4H PRN (Reason: loose stool) Qty: 20 RF: 0 potassium chloride 20 mEq Packet 20 meq PO BID Qty: 10 RF: 0 thiamine mononitrate (vit B1) [Vitamin B-1 (mononitrate)] 100 mg Tablet 100 mg PO DAILY Qty: 10 RF: 0 cephalexin 250 mg capsule 250 mg PO BID Qty: 10 RF: 0 Discharge Instructions Instructions: Gastritis (ED), Acute Nausea and Vomiting (ED) Additional Instructions: Avoid alcohol use. Drink plenty of water. Rest activities as tolerated. Please be sure to take your daily medications Follow-up closely with your primary care doctor for repeat lab evaluation as discussed. You declined CT imaging of your abdomen today or repeat lab evaluation. Regarding the emergency room for any worsening, concerns or alarming symptoms sooner if needed. Medical Decision Making This 74-year-old patient presenting to the emergency room for complaints of nausea vomiting diarrhea and upper abdominal pain which began at 5:00 this morning and persisted through the day. Patient reports numerous episodes of vomiting and approximately 5-6 episodes of diarrhea. Patient does report abdominal pain which is somewhat intermittent but does not relieve after vomiting or bowel movements. Patient denies any blood in the vomitus or bowel movement. patient denies dark stool. Patient does report transient headache and dizziness which has since resolved. Patient presents via EMS. Patient lives alone. Patient has a history of alcohol abuse. Patient reports last drink was 5 to 6 days ago at which time she had a small glass of alcohol. Patient was recently admitted to the hospital and discharged last week on 12/18 for alcohol induced gastritis as well as electrolyte abnormalities. Patient was also noted to have a urinary tract infection in the emergency room and was discharged on Keflex. Patient reports she was compliant with Keflex. Patient denies any back pain, dysuria, urgency, frequency, fevers or chills. Patient reports nausea and vomiting she is experiencing at this time is somewhat typical of what she is experienced in the past. Patient reports in comparison this is a medium episode. Patient denies any recent fall or trauma. Patient denies any obvious covid exposures. Patient reports she had been feeling well at home prior to onset of the symptoms this morning. On initial exam patient has mild hypertension and tachycardia noted on initial vitals. Patient appears in no apparent distress. Patient does have mild notable rales in the left lower lobe posteriorly otherwise breath sounds are clear and patient has an unlabored respiratory effort. No notable tachycardia present. No hypoxia. Patient has no murmur. Patient's abdominal exam reveals upper abdominal discomfort. No peritoneal signs associated. No CVA tenderness. No notable distal edema. Patient speech is clear. No smell of alcohol. I was able to watch patient ambulate from the EMS stretcher to the bed and she was able to ambulate with very minimal assistance. No obvious unsteady gait. No obvious lower extremity weakness. We will plan to rehydrate. Will check baseline labs given patient's recent admission to the hospital and electrolyte abnormalities including magnesium. Will check troponin giving nausea and vomiting. Will check EKG. We will recheck urinalysis given recent UTI. Patient agrees with this plan of care. Patient's EKG reveals a heart rate of 104, sinus tachycardia, no significant ST segment changes. Nonspecific T wave abnormalities. This was compared to her previous EKG on 12/17/2019 and seems unchanged. Reviewed by Dr. Wes Dc Patient given Phenergan for symptomatic relief due to for persistence of nausea despite initial bag of IV fluid. After Phenergan and 1 L of IV fluid patient is being moderately improved. Patient reports mild upper abdominal pain persists. Nausea controlled. Patient has not vomited nor has she had diarrhea since arrival to the emergency room. On exam patient does have mild persistent right upper quadrant pain. I did discuss this persistent pain with the patient. I did offer CT scan of her abdomen to rule out cholecystitis or acute intra-abdominal abnormalities. Patient declines more advanced imaging at this time she is had multiple CT scans for similar complaints of abdominal pain nausea and vomiting. Patient does not feel she needs CT scanning today. Pt did have recent CT scan on 12/16 revealing FINDINGS: ABDOMEN: Lung Bases: Dependent changes. Liver: Marked fatty infiltration. No measurable mass. Gallbladder and biliary tract: No radiodense calculus or dilation. Pancreas: Somewhat atrophic normal density, no abnormal calcifications or inflammatory process. Spleen: Normal. Kidneys: Normal size, contour and axis. No radiodense stones or obstructive uropathy. No masses seen. Multiple bilateral cysts. Adrenal glands: No masses seen. Abdominal Aorta: Abdominal portion non-dilated. Mild calcification. PELVIS: Bladder: Symmetric distention, no gross wall thickening. Bowel: There is a small hiatal hernia. There is no small bowel dilatation. The appendix appears normal. The colon is mainly decompressed. No obstruction or bowel wall thickening. Peritoneal cavity: No ascites, collection or mesenteric inflammatory response. Bones: Degenerative changes are noted in the spine.. Reproductive organs: Within normal limits. Lymph nodes: Unremarkable. There is a sub lobulated mass again noted in the in the presacral fat, unchanged. Impression: Stable presacral mass. No acute abnormality.. Patient the labs reviewed. Patient does have stable H&H. Hemoglobin 10.1, hematocrit 32.9. Patient is mildly neutropenic at this time which has been noted on her previous exams. Patient sodium noted to be 135, potassium 3.1. Patient provided 20 mEq of potassium chloride. Patient's creatinine 1.08, GFR 49. Magnesium 1.3 do down 0.1 from her discharge last week. Bilirubin 1.8 which has been notably elevated in the past. LFTs mildly elevated. Initial troponin negative. Lipase normal. Labs noted are not entirely abnormal for this patient and noted on previous examinations. We will give additional 500 cc of fluid. Will also replace patient's magnesium as well as potassium orally. Given patient's persistence of pain which is mild will provide Pepcid IV. Patient remains mildly tachycardic and hypertensive. Patient is unsure if she was able to keep down her daily medications. Will give an additional 25 mg of metoprolol at this time. Blood pressure improved to 159/74, heart rate now below 100. Patient tolerating p.o. fluids without difficulty. Discussed plan of care with patient. Patient does not feel she needs additional medical treatment. Patient declines repeat of labs. Patient declines advanced imaging today. Patient is of sound mind. Patient reports she is feeling improved at this time. We will plan to discharge patient. Recommended compliance with her daily medications. Recommended follow-up with PCP for repeat labs. Patient reports her understanding and agrees with plan of care. The patient was stable and requested discharge. Prior to discharge, my usual and customary return precautions were reviewed with the patient - this included follow-up instructions and reasons to return to the Emergency Department if conditions worsens, does not improve as expected, or other new concerns arise. HPI General Date/Time Provider Initiated Documentation: 12/25/19 19:29. HPI Narrative: Is a 74-year-old patient arriving via EMS complaints of nausea vomiting and diarrhea. Patient reports several episodes of vomiting throughout the course of the day. Patient reports bilious vomitus. Denies any blood in the vomitus. Patient reports approximately 5-6 episodes of diarrhea. Patient does report mild upper abdominal discomfort. Patient denies any abdominal discomfort radiating to her back. Patient denies any chest pain. Patient does report mild shortness of breath which she discusses as her baseline. Patient with mild headache and a single episode of dizziness noted today, dizziness has since resolved. Patient reports she is feeling dehydrated and reports mild sensation of dry mouth. Patient reports she is unsure what she held on her morning medications. Patients her symptoms began at approximately 5 AM. She awoke early with vomiting. Patient reports this is somewhat typical of nausea and vomiting she is experienced in the past. Patient does have a history of alcohol abuse. Reports her last drink was 5 to 6 days ago. She reports her last drink was a small glass of alcohol. Patient appears somewhat tremulous but does not feel she is withdrawing at this time. Patient denies any recent falls or trauma. Related Data Home Medications Medication Instructions Recorded Confirmed folic acid 1 mg PO DAILY #14 tab 08/11/18 12/17/19 multivitamin [Multiple Vitamins] 1 tab PO DAILY #0 tab 05/03/19 12/17/19 Refresh Plus 1 drp OU Q4H WHILE AWAKE #30 each 06/20/19 12/17/19 fluticasone propionate 1 spray NS DAILY #15.8 ml 06/20/19 12/17/19 ipratropium 0.5 mg-albuterol 3 mg 3 ml IH QID PRN #90 ml 06/27/19 12/17/19 (2.5 mg base)/3 mL nebulization soln venlafaxine 150 mg 150 mg PO DAILY #30 cap 06/27/19 12/17/19 capsule,extended release 24 hr venlafaxine 37.5 mg 37.5 mg PO DAILY #30 cap 06/27/19 12/17/19 capsule,extended release 24 hr amlodipine 10 mg tablet 10 mg PO DAILY #90 tab 06/28/19 12/17/19 thiamine mononitrate (vit B1) 100 100 mg PO DAILY #90 tab 06/28/19 12/17/19 mg tablet magnesium oxide 400 mg PO BID #180 cap 07/17/19 12/17/19 ondansetron 4 mg PO Q6H PRN #20 tab 08/15/19 12/17/19 bisacodyl 10 mg PO .q72h prn PRN #10 tab 08/19/19 12/17/19 food supplemt, lactose-reduced 414 ml PO DAILY #91641 ml 08/24/19 12/17/19 pantoprazole 40 mg tablet,delayed 40 mg PO DAILY #90 tab 08/24/19 12/17/19 release gabapentin 300 mg capsule 300 mg PO BID #90 cap 08/28/19 12/17/19 hydrochlorothiazide 12.5 mg tablet 12.5 mg PO DAILY #90 tab 08/28/19 12/17/19 metoprolol tartrate 50 mg tablet 50 mg PO BID #180 tab 08/28/19 12/17/19 sennosides 8.6 mg tablet 8.6 mg PO BID #180 tab 08/28/19 12/17/19 meclizine 25 mg tablet 25 mg PO TID PRN #30 tab 09/14/19 12/17/19 multivitamin 1 tab PO DAILY #90 tab 09/14/19 12/17/19 potassium chloride 10 mEq 10 meq PO DAILY #90 tab 09/14/19 12/17/19 tablet,extended release(part/cryst) loperamide 2 mg PO Q4H PRN #20 cap 11/03/19 12/17/19 promethazine 25 mg PO Q6H PRN #10 tab 11/03/19 12/17/19 dicyclomine 10 mg capsule 10 mg PO QID PRN #40 cap 11/06/19 12/17/19 sucralfate 1 gram tablet 1 g PO AC & HS #120 tab 11/06/19 12/17/19 potassium chloride 20 meq PO BID #10 ea 11/23/19 12/17/19 thiamine mononitrate (vit B1) 100 mg PO DAILY #10 tab 11/23/19 12/17/19 [Vitamin B-1 (mononitrate)] ondansetron HCl 4 mg tablet 4 mg PO Q8H #10 tab 11/26/19 12/17/19 cephalexin 250 mg PO BID #10 cap 12/19/19 Previous Rx's Medication Instructions Recorded folic acid 1 mg PO DAILY #14 tab 08/11/18 multivitamin [Multiple Vitamins] 1 tab PO DAILY #0 tab 05/03/19 Refresh Plus 1 drp OU Q4H WHILE AWAKE #30 each 06/20/19 fluticasone propionate 1 spray NS DAILY #15.8 ml 06/20/19 ipratropium 0.5 mg-albuterol 3 mg 3 ml IH QID PRN #90 ml 06/27/19 (2.5 mg base)/3 mL nebulization soln venlafaxine 150 mg 150 mg PO DAILY #30 cap 06/27/19 capsule,extended release 24 hr venlafaxine 37.5 mg 37.5 mg PO DAILY #30 cap 06/27/19 capsule,extended release 24 hr amlodipine 10 mg tablet 10 mg PO DAILY #90 tab 06/28/19 thiamine mononitrate (vit B1) 100 100 mg PO DAILY #90 tab 06/28/19 mg tablet magnesium oxide 400 mg PO BID #180 cap 07/17/19 ondansetron 4 mg PO Q6H PRN #20 tab 08/15/19 bisacodyl 10 mg PO .q72h prn PRN #10 tab 08/19/19 food supplemt, lactose-reduced 414 ml PO DAILY #20488 ml 08/24/19 pantoprazole 40 mg tablet,delayed 40 mg PO DAILY #90 tab 08/24/19 release gabapentin 300 mg capsule 300 mg PO BID #90 cap 08/28/19 hydrochlorothiazide 12.5 mg tablet 12.5 mg PO DAILY #90 tab 08/28/19 metoprolol tartrate 50 mg tablet 50 mg PO BID #180 tab 08/28/19 sennosides 8.6 mg tablet 8.6 mg PO BID #180 tab 08/28/19 meclizine 25 mg tablet 25 mg PO TID PRN #30 tab 09/14/19 multivitamin 1 tab PO DAILY #90 tab 09/14/19 potassium chloride 10 mEq 10 meq PO DAILY #90 tab 09/14/19 tablet,extended release(part/cryst) loperamide 2 mg PO Q4H PRN #20 cap 11/03/19 promethazine 25 mg PO Q6H PRN #10 tab 11/03/19 dicyclomine 10 mg capsule 10 mg PO QID PRN #40 cap 11/06/19 sucralfate 1 gram tablet 1 g PO AC & HS #120 tab 11/06/19 potassium chloride 20 meq PO BID #10 ea 11/23/19 thiamine mononitrate (vit B1) 100 mg PO DAILY #10 tab 11/23/19 [Vitamin B-1 (mononitrate)] ondansetron HCl 4 mg tablet 4 mg PO Q8H #10 tab 11/26/19 cephalexin 250 mg PO BID #10 cap 12/19/19 Allergies Allergy/AdvReac Type Severity Reaction Status Date / Time Penicillins Allergy Mild Rash Verified 12/25/19 19:23 ramipril Allergy Unknown ITCHING Verified 12/25/19 19:23 meperidine [From Demerol] AdvReac Severe Nausea Verified 12/25/19 19:23 bupropion AdvReac Mild GI upset Verified 12/25/19 19:23 AMBER Inhibitors AdvReac Unknown COUGH Verified 12/25/19 19:23 alendronate sodium AdvReac Unknown GI Distress Verified 12/25/19 19:23 clarithromycin AdvReac Unknown intolerant Verified 12/25/19 19:23 paroxetine AdvReac Unknown Diarrhea Verified 12/25/19 19:23 General Stated Complaint: Abd Prob JORDAN: 3 Review of Systems All systems reviewed & are unremarkable except as noted in HPI and below Constitutional Constitutional: Denies chills, Denies fatigue, Denies fever(s), Reports headache(s) and Denies malaise ENT Ears, Nose, Mouth, and Throat: Denies dysphagia, Reports headache(s) and Denies odynophagia Cardiovascular Cardiovascular: Denies chest pain, Denies lightheadedness, Denies radiating jaw, neck or arm pain, Denies palpitations and Reports dyspnea (Baseline) Respiratory Respiratory: Denies cough and Reports dyspnea (Baseline) Gastrointestinal Gastrointestinal: Reports abdominal pain, Denies dysphagia, Denies heartburn, Reports diarrhea, Reports nausea, Denies odynophagia and Reports vomiting Genitourinary Genitourinary: Denies dysuria and Denies urinary urgency Neurologic Neurologic: Reports headache(s) Endocrine Endocrine: Denies fatigue and Denies palpitations [facility] Medical History Alcohol abuse (Chronic) Alcoholic ketosis (Resolved) Allergic rhinitis (Chronic) Anemia (Chronic 12/20/16) Back pain, chronic (Chronic) CAP (community acquired pneumonia) (Resolved) Cataract (Chronic 11/07/15) Cervical radicular pain (Chronic) neck pain and [facility] Chronic alcoholic gastritis (Chronic 10/12/17) pls refrain from alcohol Chronic diarrhea (Acute) Corneal ulcer, right (Inactive ~08/23/18) 08/23/18; UV-kb Depression (Chronic) Elev transaminase/LDH (Chronic) due to alcohol Fall (Acute) Falling (Chronic) Genital herpes simplex (Chronic) recurrent gential; suppressive Valtrex GERD (gastroesophageal reflux disease) (Chronic) GI bleed (Resolved 12/20/16) Headache (Resolved) Hyperlipidemia (Chronic) Hypertension (Chronic) high today; she will check readings at home 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 Multiple rib fractures (Resolved) 03/11/19 [facility] Non-cardiac chest pain (Resolved [place]21[place]16[place] [facility] [place] Osteoarthritis (Chronic) Osteopenia (Chronic) 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) Peripheral edema (Acute) Pleural effusion on left (Resolved) 03/11/19 [facility] Right rib fracture (Resolved) Sciatica (Chronic) right, epidural injuections [facility] Tendinitis of left rotator cuff (Inactive) Tubular adenoma of colon (Chronic 01/28/17) Urinary incontinence (Chronic) 01[place]24[place] [facility] [place] Wernicke encephalopathy (Chronic) Surgical History Bladder Surgery suspension Colonoscopy - MAC (01/28/17) EGD - [facility] (12/20/16) History of bilateral ligation of fallopian tubes (Inactive) Ligation of fallopian tube Repair bladder injury, simple Social History Smoking/Tobacco Use Status: Former Tobacco Use Alcohol Intake: current Alcohol Intake frequency: 3 or more drinks per day Alcohol type: hard liquor Drug use: Never Substance use type: does not use Current gender identity: female Do you feel safe at home: Yes Do you feel safe in your relationship?: Yes Additional Social history: Exam Narrative Exam Narrative: CONST: Patient in no acute distress. Alert and oriented. HENMT: Head nomocephalic, normal to inspection. Atraumatic. Hearing grossly normal. External ear canal no erythema or swelling. TM normal bilaterally. Nose normal to inspection. No rhinnorhea. Normal facial exam. Oral mucosa normal. Tounge normal. Dentition normal. Normal posterior oropharynx. Uvula midline. EYES: General normal appearance. Alignment normal. Eyelids normal. Conjunctiva normal. NECK: Normal visual inspection. FROM. No lymphadenopathy. Trachea midline. No Midline tenderness. CHEST: Normal insepection of the chest. RESP: Normal respiratory effort. Speaking full sentences. No cough. No wheezing. No retractions. Rales noted in the left lower lung. Otherwise clear breath sounds. CARDIO: No JVD. Normal PMI. Regular Rate. Regular Rhythm. Normal peripheral pulses. GI: Normal inspection of abdomen. No distension. Soft. Mild upper abdominal pain with palpation. Bowel sounds present in all 4 quadrants. No rebound. No gaurding. No peritoneal signs MUSCULOSKELETAL: Normal Gait. FROM of all extremities. No lower extremity edema SKIN: Normal. Dry. No rashes. NEURO: Alert and awake. Speech clear. PSYCH: Normal affect. Cooperative. Course Vital Signs Vital signs: Vital Signs Temperature 36.6 C 12/25/19 19:18 Pulse 118 H 12/25/19 19:18 Respiratory Rate 16 12/25/19 19:18 Blood Pressure 162/93 H 12/25/19 19:18 Pulse Oximetry 98 12/25/19 19:18 Temperature 36.6 C 12/25/19 19:18 Pulse 118 H 12/25/19 19:18 Respiratory Rate 16 12/25/19 19:18 Respiratory Effort Non-Labored 12/25/19 19:22 Blood Pressure 162/93 H 12/25/19 19:18 Blood Pressure Position Sitting 12/25/19 19:18 Pulse Oximetry 98 12/25/19 19:18 Oxygen Delivery Method Room Air 12/25/19 19:18 Oxygen Flow Rate 0 12/25/19 19:18 Pain Level 4 12/25/19 19:18
[2019-12-25] MEDS: Normal Saline 1,000 ML 1000 ML IV (19:42)
[2019-12-25 19:44] LABS: Abs Immature Grans 0.01 k/cumm (0.0-0.09); Absolute Lymphocyte Count 0.13 k/cumm (1.2-3.4); Absolute Monocyte Count 0.24 k/cumm (0.11-0.7); HCT 32.9 % (36.0-46.0); HGB 10.1 g/dL (12.0-15.5); Immature Grans % 0.3 %; Lymphocytes % 4.2; Mean Corp. HGB Concentration 30.7 g/dL (32.0-36.0); Mean Corpuscular Hemoglobin 26.6 pg (27.0-33.0); Mean Corpuscular Volume 86.6 fL (80-95); Mean Platelet Volume 8.4 fL (8.0-11.0); Monocytes % 7.8; Neutrophils % 87.7; Platelet Count 300 x1000/uL (130-400); RBC Distribution Width 18.3 % (11.7-14.6); White Blood Cell Count 3.08 k/cumm (4.4-10.8)
[2019-12-25 20:00] LABS: ALT 114 U/L (14-59); AST 119 U/L (15-37); Albumin 3.5 g/dL (3.4-5.0); Alkaline Phosphatase 168 U/L (46-116); Anion Gap 10.5 mmol/L (3-11); BUN 10 mg/dL (7-18); Bilirubin, Total 1.8 mg/dL (0.2-1.0); CO2 28.5 mmol/L (21.0-32.0); CREATININE 1.08 mg/dL (0.55-1.02); Calcium 9.6 mg/dL (8.5-10.1); Chloride 96 mmol/L (98-107); Estimated GFR 49.73 (mL/min/1.73m2); Glucose 216 mg/dL (74-106); Lipase 59 U/L (73-393); Potassium 3.1 mmol/L (3.5-5.1); Sodium 135 mmol/L (136-145); Total Protein 7.3 g/dL (6.4-8.2)
[2019-12-25 20:05] LABS: Magnesium 1.3 mg/dL (1.8-2.4)
[2019-12-25 20:17] LABS: Bilirubin Negative (Negative); Blood Negative (Negative); Clarity Clear (Clear); Glucose 100 mg/dL (Negative); Ketones 15 mg/dL (Negative); Leukocyte Esterase Negative (Negative); Nitrite Negative (Negative); Urobilinogen 0.2 EU/dL (Up TO 0.2); pH 7.5 (5-8)
[2019-12-25 20:18] LABS: Troponin I < 0.05 ng/Ml (<0.06)
--- NOTE | 2019-12-25 20:22 | DI.VRAD_ITS ---
PROCEDURE INFORMATION: Exam: XR Chest, 2 Views Exam date and time: 12/25/2019 7:35 PM Age: 74 years old Clinical indication: Other: Cough TECHNIQUE: Imaging protocol: XR of the chest Views: 2 views. COMPARISON: CR XR ABD FLAT UPRIGHT PA CHEST 08/15/2019 11:23 PM FINDINGS: Lungs: Unremarkable. No consolidation. Pleural space: Unremarkable. No pleural effusion. No pneumothorax. Heart/Mediastinum: Unremarkable. No cardiomegaly. Bones/joints: Healed bilateral rib fractures. Interval surgical resection, distal left clavicle IMPRESSION: No acute findings. Dictated and Authenticated by: Yinka Garland MD. Ordering:CAMILO Ortiz MD
[2019-12-25 20:24] LABS: Bacteria Rare HPF (Negative); C & S Indicated? No; Casts Negative LPF (Negative); Crystals Negative HPF (Negative); Epithelial Cells Rare HPF (Negative); Mucus Trace (Negative); Other Cells Negative (Negative); RBC Negative HPF (0-2); WBC 0-2 HPF (0-5)
[2019-12-25 20:58] VITALS: BP 171/85; PULSE 102; RESP 16; O2SAT 97
[2019-12-25] MEDS: Potassium Chloride 20 MEQ TABCR PO (21:26)
[2019-12-25] MEDS: Magnesium Oxide 400 MG TAB PO (21:31)
--- NOTE | 2019-12-25 21:31 | NUR.NOTE ---
provided with warm blanket, able to tolerate PO medication and water.
[2019-12-25 21:45] VITALS: BP 170/86; PULSE 108; RESP 16; TEMP 36.7; O2SAT 95
[2019-12-25] MEDS: Normal Saline 500 ML IV (21:45)
[2019-12-25] MEDS: FAMOTIDINE 20 MG/50 ML BAG 200 MG IVPB (21:51)
[2019-12-25] MEDS: Metoprolol 25 MG TAB PO (22:24)
[2019-12-25 22:36] VITALS: BP 159/74; PULSE 98; RESP 15; O2SAT 93
[2019-12-25 23:18] VITALS: BP 165/80; PULSE 95; RESP 15; O2SAT 94
== END 2019-12-25 23:35 | disposition home or self-care (01) ==
PROVIDERS: Emergency Provider Physician Assistant; PCP Family Medicine
DX: K29.70 Gastritis, unspecified, without bleeding (principal); R11.2 Nausea with vomiting, unspecified; R00.0 Tachycardia, unspecified; Z87.440 Personal history of urinary (tract) infections; R79.89 Other specified abnormal findings of blood chemistry; I10 Essential (primary) hypertension
CPT/HCPCS: 80053; 83690; 93005; 96361; 96365; 96375; 99285; 71046; 81003; 81015; 83735; 84484; 85025; 93010; 99284

== ENCOUNTER 2019-12-31 03:56 | Emergency (ER) | payer OTHER, SELFPAY ==
[2019-12-31 03:58] VITALS: BP 166/93; PULSE 98; RESP 20; TEMP 37; O2SAT 94
--- NOTE | 2019-12-31 04:02 | W.ED.GENAD ---
Discharge Plan Disposition Patient Disposition: HOME Condition: Stable Discharge Details Chief Complaint: ETOHWithdr Clinical Impression: Alcohol abuse Primary Care Provider: Lavelle Galindo ED Provider: Blaze Mccarthy [place] Meds and New Rx's Prescriptions: Continued meclizine 25 mg tablet 25 mg PO TID PRN (Reason: dizziness) Qty: 30 RF: 1 venlafaxine 37.5 mg capsule,extended release 24hr 37.5 mg PO DAILY Qty: 30 RF: 11 venlafaxine 150 mg capsule,extended release 24hr 150 mg PO DAILY Qty: 30 RF: 11 ipratropium-albuterol 0.5 mg-3 mg(2.5 mg base)/3 mL solution for nebulization 3 ml IH QID PRN (Reason: shortness of breath) Qty: 90 RF: 3 hydrochlorothiazide 12.5 mg tablet 12.5 mg PO DAILY Qty: 90 RF: 3 gabapentin 300 mg capsule 300 mg PO BID Qty: 90 RF: 5 metoprolol tartrate 50 mg tablet 50 mg PO BID Qty: 180 RF: 3 sennosides [Senokot] 8.6 mg tablet 8.6 mg PO BID Qty: 180 RF: 3 magnesium oxide 400 mg magnesium capsule 400 mg PO BID Qty: 180 RF: 3 amlodipine 10 mg tablet 10 mg PO DAILY Qty: 90 RF: 3 thiamine mononitrate (vit B1) [Vitamin B-1 (mononitrate)] 100 mg tablet 100 mg PO DAILY Qty: 90 RF: 3 pantoprazole 40 mg tablet,delayed release (DR/EC) 40 mg PO DAILY Qty: 90 RF: 3 Ensure Active High Protein Liquid 414 ml PO DAILY Qty: 97049 RF: 11 multivitamin [Multiple Vitamins] Tablet 1 tab PO DAILY Qty: 90 RF: 3 potassium chloride [Klor-Con M10] 10 mEq tablet,ER particles/crystals 10 meq PO DAILY Qty: 90 RF: 3 dicyclomine 10 mg capsule 10 mg PO QID PRN (Reason: belly pain) Qty: 40 RF: 0 sucralfate 1 gram tablet 1 g PO AC & HS Qty: 120 RF: 5 ondansetron HCl [Zofran] 4 mg tablet 4 mg PO Q8H Qty: 10 RF: 2 folic acid 1 mg Tablet 1 mg PO DAILY Qty: 14 RF: 0 multivitamin [Multiple Vitamins] Tablet 1 tab PO DAILY Qty: 0 RF: 0 Refresh Plus 0.5 % Dropperette 1 drp OU Q4H WHILE AWAKE Qty: 30 RF: 0 fluticasone propionate 50 mcg/actuation [place],Suspension 1 spray NS DAILY Qty: 15.8 RF: 0 ondansetron 4 mg tablet,disintegrating 4 mg PO Q6H PRN (Reason: nausea and vomiting) Qty: 20 RF: 0 bisacodyl 5 mg Tablet,Delayed Release (Dr/Ec) 10 mg PO .q72h prn PRN (Reason: constipation - if no BM In 3 days) Qty: 10 RF: 0 promethazine 25 mg tablet 25 mg PO Q6H PRN (Reason: nausea and vomiting) Qty: 10 RF: 0 loperamide 2 mg capsule 2 mg PO Q4H PRN (Reason: loose stool) Qty: 20 RF: 0 potassium chloride 20 mEq Packet 20 meq PO BID Qty: 10 RF: 0 thiamine mononitrate (vit B1) [Vitamin B-1 (mononitrate)] 100 mg Tablet 100 mg PO DAILY Qty: 10 RF: 0 cephalexin 250 mg capsule 250 mg PO BID Qty: 10 RF: 0 Discharge Instructions Instructions: Abuse of Alcohol (ED) Medical Decision Making 74 yo female comes in with ems after she hit her life alert and ems found her asleep with empty alcohol containers aroud her in her apartment. She would only awaken to verbal stimuli and they brought her here, bgfs 130. She arrives sleeping and will only open her eyes to painful stimuli and the only thing she will say is leave me alone and also stop hurting me. She has no signs of trauma, moving all extremities to painful stimuli, HD stable with heavy smell of alcohol on her breath. Highly suspect alcohol intoxication will obtain alcohol level etoh level of 347, she remains stable. [facility], would have to go to [place]. Will monitor here until clinically sober. Patient remarkable walking with steady gait and requesting d/c. She is now caox4 with clear speech and requesting rct to bring her home. She has capacity to make her own decisions, will f/u with pcp and return precautions given Differential Diagnosis Differential Diagnosis: alcohol intoxication, drug abuse Medical Records Medical records reviewed: Yes I reviewed the patient's medical records. Lab Data Lab results reviewed: Yes I reviewed the patient's lab results. HPI General Mode of arrival: EMS. Date/Time Provider Initiated Documentation: 12/31/19 04:01. Limitations to Documentation: no limitations. Information obtained by: patient. History of Present Illness 74 year old F presents to the emergency department with the chief complaint of leave me alone, Patient started experiencing this unknown No relieving factors improve symptom(s), No exacerbating factors reported . Related Data Home Medications Medication Instructions Recorded Confirmed folic acid 1 mg PO DAILY #14 tab 08/11/18 12/17/19 multivitamin [Multiple Vitamins] 1 tab PO DAILY #0 tab 05/03/19 12/17/19 Refresh Plus 1 drp OU Q4H WHILE AWAKE #30 each 06/20/19 12/17/19 fluticasone propionate 1 spray NS DAILY #15.8 ml 06/20/19 12/17/19 ipratropium 0.5 mg-albuterol 3 mg 3 ml IH QID PRN #90 ml 06/27/19 12/17/19 (2.5 mg base)/3 mL nebulization soln venlafaxine 150 mg 150 mg PO DAILY #30 cap 06/27/19 12/17/19 capsule,extended release 24 hr venlafaxine 37.5 mg 37.5 mg PO DAILY #30 cap 06/27/19 12/17/19 capsule,extended release 24 hr amlodipine 10 mg tablet 10 mg PO DAILY #90 tab 06/28/19 12/17/19 thiamine mononitrate (vit B1) 100 100 mg PO DAILY #90 tab 06/28/19 12/17/19 mg tablet magnesium oxide 400 mg PO BID #180 cap 07/17/19 12/17/19 ondansetron 4 mg PO Q6H PRN #20 tab 08/15/19 12/17/19 bisacodyl 10 mg PO .q72h prn PRN #10 tab 08/19/19 12/17/19 food supplemt, lactose-reduced 414 ml PO DAILY #00849 ml 08/24/19 12/17/19 pantoprazole 40 mg tablet,delayed 40 mg PO DAILY #90 tab 08/24/19 12/17/19 release gabapentin 300 mg capsule 300 mg PO BID #90 cap 08/28/19 12/17/19 hydrochlorothiazide 12.5 mg tablet 12.5 mg PO DAILY #90 tab 08/28/19 12/17/19 metoprolol tartrate 50 mg tablet 50 mg PO BID #180 tab 08/28/19 12/17/19 sennosides 8.6 mg tablet 8.6 mg PO BID #180 tab 08/28/19 12/17/19 meclizine 25 mg tablet 25 mg PO TID PRN #30 tab 09/14/19 12/17/19 multivitamin 1 tab PO DAILY #90 tab 09/14/19 12/17/19 potassium chloride 10 mEq 10 meq PO DAILY #90 tab 09/14/19 12/17/19 tablet,extended release(part/cryst) loperamide 2 mg PO Q4H PRN #20 cap 11/03/19 12/17/19 promethazine 25 mg PO Q6H PRN #10 tab 11/03/19 12/17/19 dicyclomine 10 mg capsule 10 mg PO QID PRN #40 cap 11/06/19 12/17/19 sucralfate 1 gram tablet 1 g PO AC & HS #120 tab 11/06/19 12/17/19 potassium chloride 20 meq PO BID #10 ea 11/23/19 12/17/19 thiamine mononitrate (vit B1) 100 mg PO DAILY #10 tab 11/23/19 12/17/19 [Vitamin B-1 (mononitrate)] ondansetron HCl 4 mg tablet 4 mg PO Q8H #10 tab 11/26/19 12/17/19 cephalexin 250 mg PO BID #10 cap 12/19/19 Previous Rx's Medication Instructions Recorded folic acid 1 mg PO DAILY #14 tab 08/11/18 multivitamin [Multiple Vitamins] 1 tab PO DAILY #0 tab 05/03/19 Refresh Plus 1 drp OU Q4H WHILE AWAKE #30 each 06/20/19 fluticasone propionate 1 spray NS DAILY #15.8 ml 06/20/19 ipratropium 0.5 mg-albuterol 3 mg 3 ml IH QID PRN #90 ml 06/27/19 (2.5 mg base)/3 mL nebulization soln venlafaxine 150 mg 150 mg PO DAILY #30 cap 06/27/19 capsule,extended release 24 hr venlafaxine 37.5 mg 37.5 mg PO DAILY #30 cap 06/27/19 capsule,extended release 24 hr amlodipine 10 mg tablet 10 mg PO DAILY #90 tab 06/28/19 thiamine mononitrate (vit B1) 100 100 mg PO DAILY #90 tab 06/28/19 mg tablet magnesium oxide 400 mg PO BID #180 cap 07/17/19 ondansetron 4 mg PO Q6H PRN #20 tab 08/15/19 bisacodyl 10 mg PO .q72h prn PRN #10 tab 08/19/19 food supplemt, lactose-reduced 414 ml PO DAILY #47823 ml 08/24/19 pantoprazole 40 mg tablet,delayed 40 mg PO DAILY #90 tab 08/24/19 release gabapentin 300 mg capsule 300 mg PO BID #90 cap 08/28/19 hydrochlorothiazide 12.5 mg tablet 12.5 mg PO DAILY #90 tab 08/28/19 metoprolol tartrate 50 mg tablet 50 mg PO BID #180 tab 08/28/19 sennosides 8.6 mg tablet 8.6 mg PO BID #180 tab 08/28/19 meclizine 25 mg tablet 25 mg PO TID PRN #30 tab 09/14/19 multivitamin 1 tab PO DAILY #90 tab 09/14/19 potassium chloride 10 mEq 10 meq PO DAILY #90 tab 09/14/19 tablet,extended release(part/cryst) loperamide 2 mg PO Q4H PRN #20 cap 11/03/19 promethazine 25 mg PO Q6H PRN #10 tab 11/03/19 dicyclomine 10 mg capsule 10 mg PO QID PRN #40 cap 11/06/19 sucralfate 1 gram tablet 1 g PO AC & HS #120 tab 11/06/19 potassium chloride 20 meq PO BID #10 ea 11/23/19 thiamine mononitrate (vit B1) 100 mg PO DAILY #10 tab 11/23/19 [Vitamin B-1 (mononitrate)] ondansetron HCl 4 mg tablet 4 mg PO Q8H #10 tab 11/26/19 cephalexin 250 mg PO BID #10 cap 12/19/19 Allergies Allergy/AdvReac Type Severity Reaction Status Date / Time Penicillins Allergy Mild Rash Verified 12/25/19 19:23 ramipril Allergy Unknown ITCHING Verified 12/25/19 19:23 meperidine [From Demerol] AdvReac Severe Nausea Verified 12/25/19 19:23 bupropion AdvReac Mild GI upset Verified 12/25/19 19:23 AMBER Inhibitors AdvReac Unknown COUGH Verified 12/25/19 19:23 alendronate sodium AdvReac Unknown GI Distress Verified 12/25/19 19:23 clarithromycin AdvReac Unknown intolerant Verified 12/25/19 19:23 paroxetine AdvReac Unknown Diarrhea Verified 12/25/19 19:23 General Stated Complaint: ETOHWithdr JORDAN: 4 Review of Systems Unobtainable due to mental status PFS Surgical History Bladder Surgery suspension Colonoscopy - MAC (01/28/17) EGD - MAC (12/20/16) History of bilateral ligation of fallopian tubes (Inactive) Ligation of fallopian tube Repair bladder injury, simple Social History Smoking/Tobacco Use Status: Former Tobacco Use Alcohol Intake: current Alcohol Intake frequency: 3 or more drinks per day Alcohol type: hard liquor Drug use: Never Substance use type: does not use Current gender identity: female Do you feel safe at home: Yes Do you feel safe in your relationship?: Yes Additional Social history: Exam Const General: other (sleeping, awakens to painful stimuli and yellsleave me alone) Orientation: other (sleeping) HENNV Head: normal to inspection Ears: external ears normal General nose exam: external nose normal Mouth: moist mucous membranes Eyes Eyelids: eyelids normal Neck Neck: normal visual inspection Resp Effort & Inspection: normal respiratory effort Cardio Rate: regular rate Skin General skin exam: no rashes or lesions noted Neuro General: other (localizes pain, opens eyes and yells leave me alone w/ verbal stimuli) Extrem General: normal to inspection Course Vital Signs Vital signs: Vital Signs Temperature 37 C 12/31/19 03:58 Pulse 98 H 12/31/19 03:58 Respiratory Rate 20 12/31/19 03:58 Blood Pressure 166/93 H 12/31/19 03:58 Pulse Oximetry 94 L 12/31/19 03:58 Temperature 37 C 12/31/19 03:58 Temperature Source Temporal Artery Scan 12/31/19 03:58 Pulse 98 H 12/31/19 03:58 Respiratory Rate 12/31/19 03:58 Blood Pressure 166/93 H 12/31/19 03:58 Blood Pressure Position Sitting 12/31/19 03:58 Pulse Oximetry 94 L 12/31/19 03:58 Oxygen Delivery Method Room Air 12/31/19 03:58 Oxygen Flow Rate 0 12/31/19 03:58 Sign Out Sign Out Data: Sign Out Comment: evaluate when clinically sober Last updated by Blaze Mccarthy MD at 12/31/19 04:47
[2019-12-31 04:24] LABS: ETHANOL BLOOD 347.3 mg/dL (<3)
[2019-12-31 06:14] VITALS: BP 166/93; PULSE 98; RESP 20; TEMP 37; O2SAT 94
== END 2019-12-31 06:10 | disposition home or self-care (01) ==
PROVIDERS: Emergency Provider Emergency Medicine; PCP Family Medicine
DX: F10.220 Alcohol dependence with intoxication, uncomplicated (principal); Y90.8 Blood alcohol level of 240 mg/100 ml or more; R40.0 Somnolence
CPT/HCPCS: 36415; 99283; 80320

== ENCOUNTER 2020-01-01 10:57 | Outpatient (REF) | payer OTHER, SELFPAY ==
[2020-01-01 14:02] LABS: HCT 31.8 % (36.0-46.0); HGB 9.8 g/dL (12.0-15.5); Mean Corp. HGB Concentration 30.8 g/dL (32.0-36.0); Mean Corpuscular Hemoglobin 26.8 pg (27.0-33.0); Mean Corpuscular Volume 86.9 fL (80-95); Mean Platelet Volume 8.9 fL (8.0-11.0); Platelet Count 237 x1000/uL (130-400); RBC 3.66 m/cumm (4.00-5.20); RBC Distribution Width 17.5 % (11.7-14.6); White Blood Cell Count 2.77 k/cumm (4.4-10.8)
[2020-01-01 14:27] LABS: ALT 128 U/L (14-59); AST 144 U/L (15-37); Alkaline Phosphatase 146 U/L (46-116); Anion Gap 9.9 mmol/L (3-11); BUN 7 mg/dL (7-18); Bilirubin, Total 0.9 mg/dL (0.2-1.0); CO2 29.1 mmol/L (21.0-32.0); CREATININE 0.84 mg/dL (0.55-1.02); Calcium 9.2 mg/dL (8.5-10.1); Chloride 102 mmol/L (98-107); Glucose 134 mg/dL (74-106); Sodium 141 mmol/L (136-145); Total Protein 6.2 g/dL (6.4-8.2)
[2020-01-01 14:33] LABS: Potassium 2.6 mmol/L (3.5-5.1)
== END 2020-01-01 11:17 ==
LOC: LBN 10:57
PROVIDERS: PCP Family Medicine; Visit Provider Family Medicine
DX: F10.239 Alcohol dependence with withdrawal, unspecified (principal); K52.9 Noninfective gastroenteritis and colitis, unspecified; R11.2 Nausea with vomiting, unspecified
CPT/HCPCS: 80053; 85027

== ENCOUNTER 2020-01-02 09:30 | Emergency (ER) | payer OTHER, SELFPAY ==
[2020-01-02] VITALS (74 sets, daily range): BP systolic 138–194; BP diastolic 60–153; PULSE 81–138; RESP 14–31; TEMP 37.8; O2SAT 91–99
[2020-01-02] MEDS: Ondansetron 4 MG/2 ML VIAL (09:27)
[2020-01-02] MEDS: Normal Saline 1,000 ML 1000 ML IV (09:27)
--- NOTE | 2020-01-02 09:34 | ED.GENADUL_ITS ---
Discharge Plan Disposition Patient Disposition: HOME Condition: Stable Discharge Details Chief Complaint: ETOHWithdr Clinical Impression: UTI (urinary tract infection), Hypokalemia, Hypomagnesemia, History of alcohol abuse Primary Care Provider: Lavelle Galindo ED Provider: Megan Foster Home Meds and New Rx's Prescriptions: New levofloxacin [Levaquin] 750 mg tablet 750 mg PO DAILY 4 Days Qty: 4 RF: 0 prochlorperazine maleate [Compazine] 10 mg tablet 10 mg PO TID PRN (Reason: nausea and vomiting) Qty: 7 RF: 0 Continued meclizine 25 mg tablet 25 mg PO TID PRN (Reason: dizziness) Qty: 30 RF: 1 venlafaxine 37.5 mg capsule,extended release 24hr 37.5 mg PO DAILY Qty: 30 RF: 11 venlafaxine 150 mg capsule,extended release 24hr 150 mg PO DAILY Qty: 30 RF: 11 ipratropium-albuterol 0.5 mg-3 mg(2.5 mg base)/3 mL solution for nebulization 3 ml IH QID PRN (Reason: shortness of breath) Qty: 90 RF: 3 hydrochlorothiazide 12.5 mg tablet 12.5 mg PO DAILY Qty: 90 RF: 3 gabapentin 300 mg capsule 300 mg PO BID Qty: 90 RF: 5 metoprolol tartrate 50 mg tablet 50 mg PO BID Qty: 180 RF: 3 sennosides [Senokot] 8.6 mg tablet 8.6 mg PO BID Qty: 180 RF: 3 magnesium oxide 400 mg magnesium capsule 400 mg PO BID Qty: 180 RF: 3 amlodipine 10 mg tablet 10 mg PO DAILY Qty: 90 RF: 3 pantoprazole 40 mg tablet,delayed release (DR/EC) 40 mg PO DAILY Qty: 90 RF: 3 Ensure Active High Protein Liquid 414 ml PO DAILY Qty: 01160 RF: 11 multivitamin [Multiple Vitamins] Tablet 1 tab PO DAILY Qty: 90 RF: 3 potassium chloride [Klor-Con M10] 10 mEq tablet,ER particles/crystals 10 meq PO DAILY Qty: 90 RF: 3 dicyclomine 10 mg capsule 10 mg PO QID PRN (Reason: belly pain) Qty: 40 RF: 0 sucralfate 1 gram tablet 1 g PO AC & HS Qty: 120 RF: 5 folic acid 1 mg Tablet 1 mg PO DAILY Qty: 14 RF: 0 Refresh Plus 0.5 % Dropperette 1 drp OU Q4H WHILE AWAKE Qty: 30 RF: 0 fluticasone propionate 50 mcg/actuation [place],Suspension 1 spray NS DAILY Qty: 15.8 RF: 0 bisacodyl 5 mg Tablet,Delayed Release (Dr/Ec) 10 mg PO .q72h prn PRN (Reason: constipation - if no BM In 3 days) Qty: 10 RF: 0 promethazine 25 mg tablet 25 mg PO Q6H PRN (Reason: nausea and vomiting) Qty: 10 RF: 0 loperamide 2 mg capsule 2 mg PO Q4H PRN (Reason: loose stool) Qty: 20 RF: 0 potassium chloride 20 mEq Packet 20 meq PO BID Qty: 10 RF: 0 thiamine mononitrate (vit B1) [Vitamin B-1 (mononitrate)] 100 mg Tablet 100 mg PO DAILY Qty: 10 RF: 0 Discontinued ondansetron HCl [Zofran] 4 mg tablet 4 mg PO Q8H Qty: 10 RF: 2 ondansetron 4 mg tablet,disintegrating 4 mg PO Q6H PRN (Reason: nausea and vomiting) Qty: 20 RF: 0 Discharge Instructions Instructions: Urinary Tract Infection in Women (ED), Hypokalemia (ED), Hypomagnesemia (ED) Additional Instructions: Take the antibiotics until finished. Stop taking your Zofran as there can be an interaction with Zofran and Levaquin. Take the Compazine as needed and directed for nausea and vomiting. Call your primary care doctor's office tomorrow to schedule a follow-up appointment for reevaluation in the next week. Discharge Data Discharge Physician: Megan Foster Medical Decision Making 1000 -- 74-year-old female well-known to the emergency department with a history of chronic alcohol abuse and frequent admissions for alcohol withdrawal or electrolyte abnormalities presents after sent by PCP for hypokalemia 2.6 on labs drawn yesterday. She admits to vomiting since last night. Last drink 6 days ago because she ran out. This is her eighth ED visit in 2019. Heart rate 120s. Remainder vitals within normal limits. Patient holding vomitus bag. She is extremely disheveled but appears at mental status baseline. She has healing ecchymosis to anterior chest but denies any known fall or injury. Moving all extremities. Epigastric tender to palpation. Will repeat screening labs, chest x-ray, urinalysis and give fluids and Zofran. Patient agreeable to admission if indicated. 1100 --labs and imaging reviewed. Normal white blood cell count. Hemoglobin stable at 10. Potassium 2.7. Mag 1.2. Troponin negative. Lipase negative. Urinalysis notes UTI. Patient has been treated for pansensitive E. coli UTI tw ice over the past several weeks. Cephalexin is on her list but unclear if she is taking it. She has also not taken her metoprolol in 2 days. Heart rate remains 120s. We will continue IV fluids and give a dose of Lopressor 5 mg IV. This patient is frequently admitted here for electrolyte replacement, will replete electrolytes here and recheck after repletion to see if improved. 1530 --magnesium and potassium now normalized. Lactate uptrending to 3.5, then rechecked and went to 3.8. Case discussed with hospitalist -recommends checking a procalcitonin. If procalcitonin elevated, will plan for admission for possible early sepsis in setting of possible UTI. If procalcitonin normal, recommends continued fluid and rechecking lactate. Procalcitonin normal. Will finish third liter normal saline and recheck lactate. 1745 -- Lactate 1.5. Pt is requesting to go home. Will treat UTI with Levaquin as she has had recurrent UTI after cephalosporins. Patient's mirror inspector Armida was notified of plan for patient to return home. She will check on patient in the morning. Advised to follow up with the primary care doctor for re-evaluation. Usual and customary return precautions given prior to discharge. Medical Records Medical records reviewed: Yes I reviewed the patient's medical records. Imaging Data Radiologic Study: Radiologist's impression: XR PORTABLE CHEST AP INDICATION: h/o alcohol abuse, r/o acute disease. COMPARISON: XR CHEST 2V PA LATERAL from 12/25/2019 TECHNIQUE: 2D digital imaging was performed. FINDINGS: The exam is limited by semi upright position and suboptimal pulmonary inflation. Leads overlie the chest. There is also overlying clothing or sheets creating artifact. The heart is enlarged and the aorta is tortuous, unchanged. The lungs appear grossly clear. Old bilateral rib fractures are visible. IMPRESSION: Limited exam. No acute abnormality is visible. Lab Data Lab results reviewed: Yes I reviewed the patient's lab results. Labs: 01/02/20 11:20 Blood Blood Culture - Pending 01/02/20 11:10 Blood Blood Culture - Pending 01/02/20 10:05 Urine - Reflex from Ua Urine Culture - Pending Laboratory Tests Range/Units 01/02/20 01/02/20 01/02/20 09:15 09:15 09:15 WBC (4.4-10.8) k/cumm 4.50 D RBC (4.00-5.20) m/cumm 3.99 L Hgb (12.0-15.5) g/dL 10.7 L Hct (36.0-46.0) % 34.0 L MCV (80-95) fL 85.2 MCH (27.0-33.0) pg 26.8 L MCHC (32.0-36.0) g/dL 31.5 L RDW (11.7-14.6) % 17.3 H Plt Count (130-400) x1000/uL 246 MPV (8.0-11.0) fL 8.9 Immature Gran % % 0.2 Neutrophils % 75.6 Lymphocytes % 14.4 Monocytes % 9.8 Eosinophils % 0.0 Basophils % 0.0 Absolute Neutrophils (1.2-6.7) k/cumm 3.40 Absolute Lymphocytes (1.2-3.4) k/cumm 0.65 L Absolute Monocytes (0.11-0.7) k/cumm 0.44 Absolute Eosinophils (0.0-0.7) k/cumm 0.00 Absolute Basophils (0.0-0.2) k/cumm 0.00 Sodium (136-145) mmol/L 136 Potassium (3.5-5.1) mmol/L 2.7 L* Chloride (98-107) mmol/L 95 L Carbon Dioxide (21.0-32.0) mmol/L 25.6 Anion Gap (3-11) mmol/L 15.4 H BUN (7-18) mg/dL 8 Creatinine (0.55-1.02) mg/dL 0.83 Estimated GFR/1.73 m2 (mL/min/1.73m2) >= 60.00 Glucose (74-106) mg/dL 175 H Lactate (0.6-1.4) mmol/L Calcium (8.5-10.1) mg/dL 9.7 Magnesium (1.8-2.4) mg/dL 1.2 L Total Bilirubin (0.2-1.0) mg/dL 1.8 H AST (15-37) U/L 161 H ALT (14-59) U/L 149 H Alkaline Phosphatase (46-116) U/L 175 H Troponin I (<0.06) ng/Ml < 0.05 Total Protein (6.4-8.2) g/dL 7.6 Albumin (3.4-5.0) g/dL 3.7 Lipase (73-393) U/L 69 Procalcitonin ng/mL Urine Color (Yellow) Urine Clarity (Clear) Urine pH (5-8) Ur Specific Mitchell (1.005-1.025) Urine Protein (Negative) mg/dL Urine Ketones (Negative) mg/dL Urine Blood (Negative) Urine Nitrite (Negative) Urine Bilirubin (Negative) Urine Urobilinogen (Up TO 0.2) EU/dL Ur Leukocyte Esterase (Negative) Urine RBC Urine WBC (0-5) HPF Ur Epithelial Cells (Negative) HPF Urine Crystals (Negative) HPF Urine Bacteria (Negative) HPF Urine Mucus (Negative) Urine Other (Negative) Ur Culture Indicated? Urine Glucose (Negative) mg/dL Range/Units 01/02/20 01/02/20 01/02/20 10:05 11:20 14:00 WBC (4.4-10.8) k/cumm RBC (4.00-5.20) m/cumm Hgb (12.0-15.5) g/dL Hct (36.0-46.0) % MCV (80-95) fL MCH (27.0-33.0) pg MCHC (32.0-36.0) g/dL RDW (11.7-14.6) % Plt Count (130-400) x1000/uL MPV (8.0-11.0) fL Immature Gran % % Neutrophils % Lymphocytes % Monocytes % Eosinophils % Basophils % Absolute Neutrophils (1.2-6.7) k/cumm Absolute Lymphocytes (1.2-3.4) k/cumm Absolute Monocytes (0.11-0.7) k/cumm Absolute Eosinophils (0.0-0.7) k/cumm Absolute Basophils (0.0-0.2) k/cumm Sodium (136-145) mmol/L 138 Potassium (3.5-5.1) mmol/L 3.5 Chloride (98-107) mmol/L 101 Carbon Dioxide (21.0-32.0) mmol/L 26.2 Anion Gap (3-11) mmol/L 10.8 BUN (7-18) mg/dL 8 Creatinine (0.55-1.02) mg/dL 0.88 Estimated GFR/1.73 m2 (mL/min/1.73m2) >= 60.00 Glucose (74-106) mg/dL 143 H Lactate (0.6-1.4) mmol/L 2.5 H* Calcium (8.5-10.1) mg/dL 8.3 L Magnesium (1.8-2.4) mg/dL 1.9 Total Bilirubin (0.2-1.0) mg/dL AST (15-37) U/L ALT (14-59) U/L Alkaline Phosphatase (46-116) U/L Troponin I (<0.06) ng/Ml Total Protein (6.4-8.2) g/dL Albumin (3.4-5.0) g/dL Lipase (73-393) U/L Procalcitonin ng/mL Urine Color (Yellow) Yellow Urine Clarity (Clear) Sl cloudy Urine pH (5-8) 7.0 Ur Specific Mitchell (1.005-1.025) 1.025 Urine Protein (Negative) mg/dL >=300 H Urine Ketones (Negative) mg/dL Negative Urine Blood (Negative) Negative Urine Nitrite (Negative) Negative Urine Bilirubin (Negative) Negative Urine Urobilinogen (Up TO 0.2) EU/dL 1.0 H Ur Leukocyte Esterase (Negative) Small H Urine RBC Not Applicable Urine WBC (0-5) HPF >50 H Ur Epithelial Cells (Negative) HPF Few Urine Crystals (Negative) HPF Rare triple phos Urine Bacteria (Negative) HPF Moderate Urine Mucus (Negative) Trace Urine Other (Negative) Few transitional Ur Culture Indicated? Yes Urine Glucose (Negative) mg/dL Negative Range/Units 05/06/20 05/06/20 05/06/20 14:00 15:00 15:00 WBC (4.4-10.8) k/cumm RBC (4.00-5.20) m/cumm Hgb (12.0-15.5) g/dL Hct (36.0-46.0) % MCV (80-95) fL MCH (27.0-33.0) pg MCHC (32.0-36.0) g/dL RDW (11.7-14.6) % Plt Count (130-400) x1000/uL MPV (8.0-11.0) fL Immature Gran % % Neutrophils % Lymphocytes % Monocytes % Eosinophils % Basophils % Absolute Neutrophils (1.2-6.7) k/cumm Absolute Lymphocytes (1.2-3.4) k/cumm Absolute Monocytes (0.11-0.7) k/cumm Absolute Eosinophils (0.0-0.7) k/cumm Absolute Basophils (0.0-0.2) k/cumm Sodium (136-145) mmol/L Potassium (3.5-5.1) mmol/L Chloride (98-107) mmol/L Carbon Dioxide (21.0-32.0) mmol/L Anion Gap (3-11) mmol/L BUN (7-18) mg/dL Creatinine (0.55-1.02) mg/dL Estimated GFR/1.73 m2 (mL/min/1.73m2) Glucose (74-106) mg/dL Lactate (0.6-1.4) mmol/L 3.2 H* 3.8 H* Calcium (8.5-10.1) mg/dL Magnesium (1.8-2.4) mg/dL Total Bilirubin (0.2-1.0) mg/dL AST (15-37) U/L ALT (14-59) U/L Alkaline Phosphatase (46-116) U/L Troponin I (<0.06) ng/Ml Total Protein (6.4-8.2) g/dL Albumin (3.4-5.0) g/dL Lipase (73-393) U/L Procalcitonin ng/mL < 0.1 Urine Color (Yellow) Urine Clarity (Clear) Urine pH (5-8) Ur Specific Mitchell (1.005-1.025) Urine Protein (Negative) mg/dL Urine Ketones (Negative) mg/dL Urine Blood (Negative) Urine Nitrite (Negative) Urine Bilirubin (Negative) Urine Urobilinogen (Up TO 0.2) EU/dL Ur Leukocyte Esterase (Negative) Urine RBC Urine WBC (0-5) HPF Ur Epithelial Cells (Negative) HPF Urine Crystals (Negative) HPF Urine Bacteria (Negative) HPF Urine Mucus (Negative) Urine Other (Negative) Ur Culture Indicated? Urine Glucose (Negative) mg/dL Range/Units 01/02/20 17:40 WBC (4.4-10.8) k/cumm RBC (4.00-5.20) m/cumm Hgb (12.0-15.5) g/dL Hct (36.0-46.0) % MCV (80-95) fL MCH (27.0-33.0) pg MCHC (32.0-36.0) g/dL RDW (11.7-14.6) % Plt Count (130-400) x1000/uL MPV (8.0-11.0) fL Immature Gran % % Neutrophils % Lymphocytes % Monocytes % Eosinophils % Basophils % Absolute Neutrophils (1.2-6.7) k/cumm Absolute Lymphocytes (1.2-3.4) k/cumm Absolute Monocytes (0.11-0.7) k/cumm Absolute Eosinophils (0.0-0.7) k/cumm Absolute Basophils (0.0-0.2) k/cumm Sodium (136-145) mmol/L Potassium (3.5-5.1) mmol/L Chloride (98-107) mmol/L Carbon Dioxide (21.0-32.0) mmol/L Anion Gap (3-11) mmol/L BUN (7-18) mg/dL Creatinine (0.55-1.02) mg/dL Estimated GFR/1.73 m2 (mL/min/1.73m2) Glucose (74-106) mg/dL Lactate (0.6-1.4) mmol/L 1.5 H Calcium (8.5-10.1) mg/dL Magnesium (1.8-2.4) mg/dL Total Bilirubin (0.2-1.0) mg/dL AST (15-37) U/L ALT (14-59) U/L Alkaline Phosphatase (46-116) U/L Troponin I (<0.06) ng/Ml Total Protein (6.4-8.2) g/dL Albumin (3.4-5.0) g/dL Lipase (73-393) U/L Procalcitonin ng/mL Urine Color (Yellow) Urine Clarity (Clear) Urine pH (5-8) Ur Specific Mitchell (1.005-1.025) Urine Protein (Negative) mg/dL Urine Ketones (Negative) mg/dL Urine Blood (Negative) Urine Nitrite (Negative) Urine Bilirubin (Negative) Urine Urobilinogen (Up TO 0.2) EU/dL Ur Leukocyte Esterase (Negative) Urine RBC Urine WBC (0-5) HPF Ur Epithelial Cells (Negative) HPF Urine Crystals (Negative) HPF Urine Bacteria (Negative) HPF Urine Mucus (Negative) Urine Other (Negative) Ur Culture Indicated? Urine Glucose (Negative) mg/dL ECG Data Attestation: I personally reviewed and interpreted this ECG (s) as follows: Interpretation: Rate of 120, sinus, T wave inversion in V2, appears new. No acute ST elevation or depression. WI 146. QTc 469. QRS 92. HPI General Mode of arrival: EMS . Date/Time Provider Initiated Documentation: 01/02/20 09:33 . Limitations to Documentation: no limitations . Information obtained by: patient and EMS . HPI Narrative: Patient is a 74-year-old female well-known to the emergency department with a history of chronic alcohol abuse, frequent admissions for electrolyte abnormalities or alcohol withdrawal, along with a history of GERD, hypertension, hyperlipidemia who presents after sent by PCP office for hypokalemia on lab work drawn yesterday. Patient states the blood was drawn from her house yesterday. Her potassium was 2.6. She states her last drink was last because she ran out of alcohol. She has been vomiting multiple times since last night. She is unsure of the color of the vomit. She also admits to epigastric abdominal pain. She denies any chest pain, shortness of breath or diarrhea. She denies any known fever, cough, recent travel, recent Covid testing or known sick contacts. Related Data Home Medications Medication Instructions Recorded Confirmed folic acid 1 mg PO DAILY #14 tab 08/11/18 01/02/20 Refresh Plus 1 drp OU Q4H WHILE AWAKE #30 each 06/20/19 01/02/20 fluticasone propionate 1 spray NS DAILY #15.8 ml 06/20/19 01/02/20 ipratropium 0.5 mg-albuterol 3 mg 3 ml IH QID PRN #90 ml 06/27/19 01/02/20 (2.5 mg base)/3 mL nebulization soln venlafaxine 150 mg 150 mg PO DAILY #30 cap 06/27/19 01/02/20 capsule,extended release 24 hr venlafaxine 37.5 mg 37.5 mg PO DAILY #30 cap 06/27/19 01/02/20 capsule,extended release 24 hr amlodipine 10 mg tablet 10 mg PO DAILY #90 tab 06/28/19 01/02/20 magnesium oxide 400 mg PO BID #180 cap 07/17/19 01/02/20 bisacodyl 10 mg PO .q72h prn PRN #10 tab 08/19/19 01/02/20 food supplemt, lactose-reduced 414 ml PO DAILY #70330 ml 08/24/19 01/02/20 pantoprazole 40 mg tablet,delayed 40 mg PO DAILY #90 tab 08/24/19 01/02/20 release gabapentin 300 mg capsule 300 mg PO BID #90 cap 08/28/19 01/02/20 hydrochlorothiazide 12.5 mg tablet 12.5 mg PO DAILY #90 tab 08/28/19 01/02/20 metoprolol tartrate 50 mg tablet 50 mg PO BID #180 tab 08/28/19 01/02/20 sennosides 8.6 mg tablet 8.6 mg PO BID #180 tab 08/28/19 01/02/20 meclizine 25 mg tablet 25 mg PO TID PRN #30 tab 09/14/19 01/02/20 multivitamin 1 tab PO DAILY #90 tab 09/14/19 01/02/20 potassium chloride 10 mEq 10 meq PO DAILY #90 tab 09/14/19 01/02/20 tablet,extended release(part/cryst) loperamide 2 mg PO Q4H PRN #20 cap 11/03/19 01/02/20 promethazine 25 mg PO Q6H PRN #10 tab 11/03/19 01/02/20 dicyclomine 10 mg capsule 10 mg PO QID PRN #40 cap 11/06/19 01/02/20 sucralfate 1 gram tablet 1 g PO AC & HS #120 tab 11/06/19 01/02/20 potassium chloride 20 meq PO BID #10 ea 11/23/19 01/02/20 thiamine mononitrate (vit B1) 100 mg PO DAILY #10 tab 11/23/19 01/02/20 [Vitamin B-1 (mononitrate)] levofloxacin [Levaquin] 750 mg PO DAILY 4 Days #4 tab 01/02/20 prochlorperazine maleate 10 mg PO TID PRN #7 tab 01/02/20 [Compazine] Previous Rx's Medication Instructions Recorded folic acid 1 mg PO DAILY #14 tab 08/11/18 Refresh Plus 1 drp OU Q4H WHILE AWAKE #30 each 06/20/19 fluticasone propionate 1 spray NS DAILY #15.8 ml 06/20/19 ipratropium 0.5 mg-albuterol 3 mg 3 ml IH QID PRN #90 ml 06/27/19 (2.5 mg base)/3 mL nebulization soln venlafaxine 150 mg 150 mg PO DAILY #30 cap 06/27/19 capsule,extended release 24 hr venlafaxine 37.5 mg 37.5 mg PO DAILY #30 cap 06/27/19 capsule,extended release 24 hr amlodipine 10 mg tablet 10 mg PO DAILY #90 tab 06/28/19 magnesium oxide 400 mg PO BID #180 cap 07/17/19 bisacodyl 10 mg PO .q72h prn PRN #10 tab 08/19/19 food supplemt, lactose-reduced 414 ml PO DAILY #24227 ml 08/24/19 pantoprazole 40 mg tablet,delayed 40 mg PO DAILY #90 tab 08/24/19 release gabapentin 300 mg capsule 300 mg PO BID #90 cap 08/28/19 hydrochlorothiazide 12.5 mg tablet 12.5 mg PO DAILY #90 tab 08/28/19 metoprolol tartrate 50 mg tablet 50 mg PO BID #180 tab 08/28/19 sennosides 8.6 mg tablet 8.6 mg PO BID #180 tab 12/31/19 meclizine 25 mg tablet 25 mg PO TID PRN #30 tab 09/14/19 multivitamin 1 tab PO DAILY #90 tab 09/14/19 potassium chloride 10 mEq 10 meq PO DAILY #90 tab 09/14/19 tablet,extended release(part/cryst) loperamide 2 mg PO Q4H PRN #20 cap 11/03/19 promethazine 25 mg PO Q6H PRN #10 tab 11/03/19 dicyclomine 10 mg capsule 10 mg PO QID PRN #40 cap 11/06/19 sucralfate 1 gram tablet 1 g PO AC & HS #120 tab 11/06/19 potassium chloride 20 meq PO BID #10 ea 11/23/19 thiamine mononitrate (vit B1) 100 mg PO DAILY #10 tab 11/23/19 [Vitamin B-1 (mononitrate)] levofloxacin [Levaquin] 750 mg PO DAILY 4 Days #4 tab 01/02/20 prochlorperazine maleate 10 mg PO TID PRN #7 tab 01/02/20 [Compazine] Allergies Allergy/AdvReac Type Severity Reaction Status Date / Time Penicillins Allergy Mild Rash Verified 01/02/20 10:22 ramipril Allergy Unknown ITCHING Verified 01/02/20 10:22 meperidine [From Demerol] AdvReac Severe Nausea Verified 01/02/20 10:22 bupropion AdvReac Mild GI upset Verified 01/02/20 10:22 AMBER Inhibitors AdvReac Unknown COUGH Verified 01/02/20 10:22 alendronate sodium AdvReac Unknown GI Distress Verified 01/02/20 10:22 clarithromycin AdvReac Unknown intolerant Verified 01/02/20 10:22 paroxetine AdvReac Unknown Diarrhea Verified 01/02/20 10:22 General JORDAN: 4 Review of Systems All systems reviewed & are unremarkable except as noted in HPI and below Constitutional Constitutional: Reports as per HPI, Denies chills and Denies fever(s) Eyes Eyes: Denies blurry vision ENT Ears, Nose, Mouth, and Throat: Denies dizziness, Denies sore throat and Denies throat swelling Cardiovascular Cardiovascular: Denies chest pain and Denies dyspnea Respiratory Respiratory: Denies cough and Denies dyspnea Gastrointestinal Gastrointestinal: Reports abdominal pain, Denies diarrhea and Reports vomiting Genitourinary Genitourinary: Denies hematuria and Denies dysuria Musculoskeletal Musculoskeletal: Denies back pain and Denies numbness Integumentary/Breasts Skin/Breast: Denies lesions and Denies rash Neurologic Neurologic: Denies dizziness, Denies localized weakness and Denies numbness Allergic/Immunologic Allergic/Immunologic: Denies throat swelling [facility] Surgical History Bladder Surgery suspension Colonoscopy - MAC (01/28/17) EGD - MAC (12/20/16) History of bilateral ligation of fallopian tubes (Inactive) Ligation of fallopian tube Repair bladder injury, simple Social History Smoking/Tobacco Use Status: Former Tobacco Use Alcohol Intake: current Alcohol Intake frequency: 3 or more drinks per day Alcohol type: hard liquor Drug use: Never Substance use type: does not use Current gender identity: female Do you feel safe at home: Yes Do you feel safe in your relationship?: Yes Additional Social history: Exam Const General: cooperative, no acute distress, disheveled and ill appearing chronically HENMT Head: normal to inspection Face and sinus: normal facial exam Eyes General: appearance normal, both eyes and all related structures Pupils: PERRL EOM: EOM intact bilaterally Other: Patch over right eye due to corneal abrasion per patient. Both eyes normal to inspection. No evidence of periorbital cellulitis, conjunctivitis. Neck Neck: normal visual inspection and No submandibular swelling Lymphatic: no lymphadenopathy noted Chest Chest: normal inspection of the chest and no tenderness Chest/axillae images: 1. Healing ecchymosis noted anteriorly. Tender to palpation. No abrasions or lacerations. No step-off or crepitus. Resp Effort & Inspection: normal respiratory effort and able to speak in complete sentences Auscultation: clear to auscultation bilaterally Cardio Rate: regular rate Rhythm: regular rhythm GI Inspection: normal to inspection Palpation: soft, not firm, not rigid and tender in the epigastrum, in the LUQ and in the RUQ Auscultation: hypoactive bowel sounds Back/Spine/Pelvis Thoracic/Lumbar Spine: thoracic and lumbar spine normal to inspection Pelvis: no pain with anterior-posterior compression Skin General skin exam: no rashes or lesions noted Neuro General: patient alert, patient awake, patient oriented x3 and moves all extremities Cognition: normal cognition Speech: speech normal Motor: muscle tone normal throughout Sensory Exam: no sensory deficits noted Extrem General: normal to inspection, full ROM, capillary refill normal, no calf tenderness bilaterally and no edema Psych Appearance: grossly normal Mental Status: mental status grossly normal Speech and Movement: speech and movement normal Affect: normal affect
[2020-01-02 10:09] LABS: Abs Immature Grans 0.01 k/cumm (0.0-0.09); Absolute Lymphocyte Count 0.65 k/cumm (1.2-3.4); Absolute Monocyte Count 0.44 k/cumm (0.11-0.7); HGB 10.7 g/dL (12.0-15.5); Immature Grans % 0.2 %; Lymphocytes % 14.4; Mean Corp. HGB Concentration 31.5 g/dL (32.0-36.0); Mean Corpuscular Hemoglobin 26.8 pg (27.0-33.0); Mean Corpuscular Volume 85.2 fL (80-95); Mean Platelet Volume 8.9 fL (8.0-11.0); Monocytes % 9.8; Neutrophils % 75.6; Platelet Count 246 x1000/uL (130-400); RBC 3.99 m/cumm (4.00-5.20); RBC Distribution Width 17.3 % (11.7-14.6)
[2020-01-02 10:14] LABS: Lipase 69 U/L (73-393)
[2020-01-02 10:20] LABS: ALT 149 U/L (14-59); AST 161 U/L (15-37); Albumin 3.7 g/dL (3.4-5.0); Alkaline Phosphatase 175 U/L (46-116); Anion Gap 15.4 mmol/L (3-11); BUN 8 mg/dL (7-18); Bilirubin, Total 1.8 mg/dL (0.2-1.0); CO2 25.6 mmol/L (21.0-32.0); CREATININE 0.83 mg/dL (0.55-1.02); Calcium 9.7 mg/dL (8.5-10.1); Chloride 95 mmol/L (98-107); Glucose 175 mg/dL (74-106); Magnesium 1.2 mg/dL (1.8-2.4); Sodium 136 mmol/L (136-145); Total Protein 7.6 g/dL (6.4-8.2)
[2020-01-02 10:20] LABS: Bilirubin Negative (Negative); Blood Negative (Negative); Clarity Sl Cloudy (Clear); Glucose Negative (Negative); Ketones Negative (Negative); Leukocyte Esterase Small (Negative); Nitrite Negative (Negative); Specific Gravity 1.025 (1.005-1.025)
[2020-01-02 10:21] LABS: Potassium 2.7 mmol/L (3.5-5.1); Troponin I < 0.05 ng/Ml (<0.06)
[2020-01-02 10:33] LABS: Bacteria Moderate HPF (Negative); C & S Indicated? Yes; Crystals Rare Triple Phos HPF (Negative); Epithelial Cells Few HPF (Negative); Mucus Trace (Negative); Other Cells Few Transitional (Negative); WBC >50 HPF (0-5)
[2020-01-02] MEDS: MAGNESIUM SULFATE 1 GM/100 ML BAG IVPB (10:45)
--- NOTE | 2020-01-02 10:55 | DI.RAD_ITS ---
EXAM: XR PORTABLE CHEST AP INDICATION: h/o alcohol abuse, r/o acute disease. COMPARISON: XR CHEST 2V PA LATERAL from 12/25/2019 TECHNIQUE: 2D digital imaging was performed. FINDINGS: The exam is limited by semi upright position and suboptimal pulmonary inflation. Leads overlie the chest. There is also overlying clothing or sheets creating artifact. The heart is enlarged and the aorta is tortuous, unchanged. The lungs appear grossly clear. Old bilateral rib fractures are visi ble. IMPRESSION: Limited exam. No acute abnormality is visible. DATA REPOSITORY: RADIATION DOSE DELIVERED:
[2020-01-02] MEDS: POTASSIUM CHLORIDE 20 MEQ/100 ML BAG 50 MEQ IVPB (11:00)
[2020-01-02] MEDS: Prochlorperazine 10 MG/2 ML VIAL IVP (11:22)
[2020-01-02] MEDS: MAGNESIUM SULFATE 8.12 MEQ, MULTIVITAMIN 10 ML, THIAMINE 100 MG, FOLIC ACID 1 MG in Nor... 168.867 MG IV (11:23)
[2020-01-02 11:30] LABS: Lactate 2.5 mmol/L (0.6-1.4)
[2020-01-02] MEDS: Metoprolol 5 MG/5 ML VIAL IVP (11:35)
[2020-01-02] MEDS: Potassium Chloride Liquid 20 MEQ PKT 40 MEQ PO (11:43)
[2020-01-02] MEDS: Normal Saline 500 ML IV ×2 (13:10→13:12)
[2020-01-02] MEDS: cefTRIAXone 1 GM/50 ML BAG IVPB (13:35)
[2020-01-02 14:31] LABS: Lactate 3.2 mmol/L (0.6-1.4)
[2020-01-02 14:41] LABS: Anion Gap 10.8 mmol/L (3-11); BUN 8 mg/dL (7-18); CO2 26.2 mmol/L (21.0-32.0); CREATININE 0.88 mg/dL (0.55-1.02); Calcium 8.3 mg/dL (8.5-10.1); Chloride 101 mmol/L (98-107); Glucose 143 mg/dL (74-106); Magnesium 1.9 mg/dL (1.8-2.4); Potassium 3.5 mmol/L (3.5-5.1); Sodium 138 mmol/L (136-145)
[2020-01-02 15:17] LABS: Lactate 3.8 mmol/L (0.6-1.4)
[2020-01-02] MEDS: Normal Saline 250 ML IV (15:41)
[2020-01-02] MEDS: Metoprolol 50 MG TAB PO (15:41)
[2020-01-02 16:28] LABS: Procalcitonin < 0.1 ng/mL
[2020-01-02] MEDS: Normal Saline 1,000 ML 750 ML IV (16:56)
[2020-01-02 17:52] LABS: Lactate 1.5 mmol/L (0.6-1.4)
[2020-01-02] MEDS: levoFLOXacin 500 MG, levoFLOXacin 250 MG 750 MG PO (18:28)
[2020-01-02] MEDS: Prochlorperazine 10 MG TAB 30 MG PO (18:30)
--- NOTE | 2020-01-03 09:25 | NUR.NOTE ---
Nursing Note: Patient's discharge instructions, prescriptions, and medication for discharge were left behind in the ED. I spoke with patient and called the 2 prescriptions in to [facility] [place], [place]. Leticia is aware that the prescriptions were called in and that they need to be picked up. Discharge instructions were mailed to patient. Wendy Roth.
--- NOTE | 2020-01-03 09:30 | NUR.NOTE ---
pt left rx and paperwork behind. rx's called into pharmacy. pt left medication dispensed from home with her. will return to [facility].
== END 2020-01-02 19:30 | disposition home or self-care (01) ==
PROVIDERS: Emergency Provider Physician Assistant; PCP Family Medicine
DX: F10.230 Alcohol dependence with withdrawal, uncomplicated (principal); E87.6 Hypokalemia; E83.42 Hypomagnesemia; R11.2 Nausea with vomiting, unspecified; R10.13 Epigastric pain; I10 Essential (primary) hypertension; S20.219A Contusion of unspecified front wall of thorax, initial encounter; X58.XXXA Exposure to other specified factors, initial encounter
CPT/HCPCS: 36410; 36415; 80048; 80053; 83690; 84145; 87040; 87077; 93005; 96361; 96365; 96367; 96368; 96375; 99285; 71045; 81003; 81015; 83605; 83735; 84484; 85025; 87086; 87186; 93010; J0696; J0780; J2405; J3475; J3480

== ENCOUNTER 2020-01-30 12:28 | Outpatient (CLI) | payer OTHER, SELFPAY ==
--- NOTE | 2020-01-30 11:30 | DI.RAD_ITS ---
EXAM: XR SHOULDER RT COMPLETE 2+V CLINICAL HISTORY: F/U FRACTURE TECHNIQUE: COMPARISON: CR XR SHOULDER RT COMPLETE 2+V from 10/24/2019 FINDINGS: Two views were obtained and show previously described fractures of the distal clavicle and proximal h umerus as well as multiple right rib fractures. Alignment appears unchanged in comparison with prior radiographs 10/24/2019. IMPRESSION:
== END 2020-01-30 12:48 ==
PROVIDERS: PCP Family Medicine; Referring Provider Family Medicine; Visit Provider Orthopaedic Surgery
DX: S42.031D Displaced fracture of lateral end of right clavicle, subsequent encounter for fracture with routine healing; S42.301A Unspecified fracture of shaft of humerus, right arm, initial encounter for closed fracture; S60.052A Contusion of left little finger without damage to nail, initial encounter; X58.XXXA Exposure to other specified factors, initial encounter; M75.32 Calcific tendinitis of left shoulder; I10 Essential (primary) hypertension
CPT/HCPCS: 99213; 73030

== ENCOUNTER 2020-02-07 04:07 | Emergency (ER) | payer OTHER, SELFPAY ==
[2020-02-07] VITALS (44 sets, daily range): BP systolic 111–189; BP diastolic 62–110; PULSE 97–147; RESP 15–36; TEMP 36.7; O2SAT 88–100
--- NOTE | 2020-02-07 04:18 | ED.GENADUL_ITS ---
Discharge Plan Disposition Patient Disposition: HOME Condition: Improving Discharge Details Chief Complaint: ETOHWithdr Clinical Impression: Alcohol abuse, Enteritis, Acute vomiting Primary Care Provider: Lavelle Galindo ED Provider: Megan Foster Home Meds and New Rx's Prescriptions: New ondansetron HCl [Zofran] 4 mg tablet 4 mg PO Q8H Qty: 12 RF: 0 Continued meclizine 25 mg tablet 25 mg PO TID PRN (Reason: dizziness) Qty: 30 RF: 1 venlafaxine 37.5 mg capsule,extended release 24hr 37.5 mg PO DAILY Qty: 30 RF: 11 venlafaxine 150 mg capsule,extended release 24hr 150 mg PO DAILY Qty: 30 RF: 11 hydrochlorothiazide 12.5 mg tablet 12.5 mg PO DAILY Qty: 90 RF: 3 gabapentin 300 mg capsule 300 mg PO BID Qty: 90 RF: 5 metoprolol tartrate 50 mg tablet 50 mg PO BID Qty: 180 RF: 3 sennosides [Senokot] 8.6 mg tablet 8.6 mg PO BID Qty: 180 RF: 3 magnesium oxide 400 mg magnesium capsule 400 mg PO BID Qty: 180 RF: 3 amlodipine 10 mg tablet 10 mg PO DAILY Qty: 90 RF: 3 pantoprazole 40 mg tablet,delayed release (DR/EC) 40 mg PO DAILY Qty: 90 RF: 3 Ensure Active High Protein Liquid 414 ml PO DAILY Qty: 09878 RF: 11 multivitamin [Multiple Vitamins] Tablet 1 tab PO DAILY Qty: 90 RF: 3 potassium chloride [Klor-Con M10] 10 mEq tablet,ER particles/crystals 10 meq PO DAILY Qty: 90 RF: 3 dicyclomine 10 mg capsule 10 mg PO QID PRN (Reason: belly pain) Qty: 40 RF: 0 sucralfate 1 gram tablet 1 g PO AC & HS Qty: 120 RF: 5 ipratropium-albuterol 0.5 mg-3 mg(2.5 mg base)/3 mL solution for nebulization 3 ml IH QID PRN (Reason: shortness of breath) Qty: 90 RF: 3 folic acid 1 mg Tablet 1 mg PO DAILY Qty: 14 RF: 0 Refresh Plus 0.5 % Dropperette 1 drp OU Q4H WHILE AWAKE Qty: 30 RF: 0 fluticasone propionate 50 mcg/actuation Mckinney,Suspension 1 spray NS DAILY Qty: 15.8 RF: 0 bisacodyl 5 mg Tablet,Delayed Release (Dr/Ec) 10 mg PO .q72h prn PRN (Reason: constipation - if no BM In 3 days) Qty: 10 RF: 0 promethazine 25 mg tablet 25 mg PO Q6H PRN (Reason: nausea and vomiting) Qty: 10 RF: 0 loperamide 2 mg capsule 2 mg PO Q4H PRN (Reason: loose stool) Qty: 20 RF: 0 potassium chloride 20 mEq Packet 20 meq PO BID Qty: 10 RF: 0 thiamine mononitrate (vit B1) [Vitamin B-1 (mononitrate)] 100 mg Tablet 100 mg PO DAILY Qty: 10 RF: 0 prochlorperazine maleate [Compazine] 10 mg tablet 10 mg PO TID PRN (Reason: nausea and vomiting) Qty: 7 RF: 0 Discharge Instructions Instructions: Gastritis (ED), Abuse of Alcohol (DC) Additional Instructions: Please continue to avoid alcohol. Please take the Zofran as needed for nausea. Please take your home sucralfate as previously prescribed. Avoid any spicy or tomato-based products. Stick with a bland diet for the next 2 to 3 days of rice, mashed potatoes, applesauce, and toast. Drink plenty of fluids. If you notice any worsening of your symptoms, or any new symptoms such as vomiting, diarrhea, fever, chills, shortness of breath, chest pain, numbness, weakness, or fainting , please return immediately to the emergency department for reevaluation. Please follow up with your primary care provider as soon as possible for reassessment and reevaluation. As always, it was a pleasure participating in your medical care today. Referrals: Lavelle Galindo. [Primary Care Provider] - Discharge Data Discharge Date/Time-TO BE ENTERED AT DEPARTURE: 02/07/20 10:30 Discharge Physician: Megan Foster Medical Decision Making <Paul Chavira DO - Last Filed: 02/07/20 07:47> This is a 74-year-old female with a past medical history of chronic alcoholism, chronic rib fractures, chronic medical noncompliance, chronic presacral mass which is stable, multiple visits recently for alcoholism, vomiting, and electrolyte abnormalities who presents today for evaluation of vomiting. Patient states her last drink was 6 days ago. She has not been able to get any alcohol since then. Patient states that starting at noon today she has had 3-4 episodes of vomiting. She denies hematemesis, coffee-ground emesis, she does admit to occasional grainy loose stools but this is improved over the last 24 to 48 hours. She denies any hematochezia or melena. She does admit to mild epigastric tenderness and achiness which she states she has had chronically. She denies any significant acute changes otherwise. She denies any chest pain, chest tightness, chest heaviness, bandlike sensation around the chest. She denies any change in food. She denies any other complaints at this time. Physical exam demonstrates a notably disheveled and unkempt female. Mild epigastric tenderness, no signs of an acute surgical abdomen. Dry mucous mem branes. Symptoms likely secondary to chronic alcoholism, suspect mild pancreatitis, versus chronic gastritis from her alcoholism. No current clinical indication for CT imaging. Obstruction unlikely but we will get plain films to evaluate for any signs of overt obstruction. We will rehydrate, give Zofran, monitor closely and reassess. Out of an abundance of precaution we will perform a cardiac work-up although I feel her symptoms are unlikely cardiac in etiology. 5:30 AM Patient's laboratory work-up is returned, patient demonstrates no significant white count, magnesium is low at 1.5, potassium stable. Renal function demonstrates a low GFR of 31, bicarb is low at 18 and anion gap is notably elevated at 25.5. Concern for dehydration for sure. Troponin EKG productive. TSH and alcohol normal. Lipase normal. Plain films negative for acute process per virtual radiology. However while the patient was getting her x-rays she had notable retching episode, shortly thereafter she started complaining of right- sided and central chest pain. Repeat physical exam demonstrates no subcutaneous crepitus, however her symptoms are concerning. We will advanced imaging to CT scan to evaluate for any signs of esophageal perforation, although I feel this unlikely. We will fix her electrolytes, and continue to rehydrate monitor closely. We will add a banana bag. 7:[address] scans results have returned, no evidence of esophageal tear, subcutaneous air, acute abdominal or thoracic pathology. Patient's heart rate is finally starting to gradually come down after some Ativan was given. Feel that alcohol withdrawal may certainly be a component of her symptoms. No seizure activity whatsoever. Patient is gradually starting to feel better, retching is notably diminished. Repeat BMP demonstrates notably normalizing bicarb 22 and an anion gap that is notably returning towards baseline at 16. GFR improved to 46. Patient's bilirubin is elevated at 2.4 however she is cer tainly been at these levels in the past, and in the setting of a negative CT scan her symptoms are inconsistent with acute cholecystitis. At this time I do not see indication for admission currently, I do feel that she would benefit from some continued hydration with a banana bag. I discussed this with the patient she agrees, and states that she does feel comfortable going home but would like to rest more and gets more fluids. I do feel this is reasonable. We will continue with the banana bag, and then discharge after she is gotten 2-300 more cc of the banana bag total. With her improvement of her symptomatology I do feel that this is notably reasonable. Symptoms continue to show no signs of an acute abdominal process on exam or signs of an acute surgical abdomen. Diagnosis sized for alcoholic gastritis, dehydration, and hypomagnesemia. I have extensively reviewed the treatment plan and discharge instructions with the patient. I have addressed all patient concerns at this time. The patient was made aware of what symptoms to monitor for that would warrant a return to the emergency department. Discussed the plan with the patient, they demonstrate verbal understanding and agreement with our assessment and plan at this time. EKG 4: 32 Rate 131, NM 132, QTc 469, QRS 92, sinus tachycardia, nonspecific ST depressions noted in V2 and V3, inverted T wave in V1, lead III. Previous EKG from 01/02/2020 demonstrates near identical findings. No signs of acute change or STEMI. FINDINGS: Lungs: There is a stable 1 x 1.1 cm ground-glass opacity in the right apex. Linear atelectasis in the upper lobes. Dependent atelectasis at the lung bases. Pleural space: Trace pleural effusions. Heart: Normal sized heart. No pericardial effusion. Mediastinal space: Small hiatus hernia. Aorta: The a atherosclerotic aorta. Ascending aorta is mildly aneurysmal measuring 3.9 cm unchanged from the prior exam. Lymph nodes: Unremarkable. No enlarged lymph nodes. Bones/joints: Old, healed bilateral rib fractures. Soft tissues: Unremarkable. IMPRESSION: 1. Subsegmental atelectasis at the lung bases and trace pleural effusions. 2. Stable 1.1 cm ground-glass opacity in the right apex. This is unchanged since 2019 . 3. Small hiatus hernia. FINDINGS: Liver: Fatty liver. Gallbladder and bile ducts: Normal. No calcified stones. No ductal dilation. Pancreas: Pancreatic atrophy. Spleen: Normal. No splenomegaly. Adrenals: Stable left adrenal thickening. Right adrenal gland is unremarkable. Kidneys and ureters: There are multiple renal cysts , largest 3.3 cm in the anterior right kidney , unchanged from the prior exam. No stones or hydronephrosis. Stomach and bowel: Small hiatus hernia. Unremarkable small and large bowel. Appendix: Normal appendix. Intraperitoneal space: Unremarkable. No free air. No significant fluid collection. Vasculature: Unremarkable. No abdominal aortic aneurysm. Lymph nodes: Unremarkable. No enlarged lymph nodes. Bladder: Unremarkable as visualized. Reproductive: Unremarkable as visualized. Bones/joints: Grade 1 anterolisthesis of L4 on L5, stable. Minimal chronic compression fractures of the T11-T12 endplates .. No acute fracture. Soft tissues: Unremarkable. Other findings: Stable lobular soft tissue mass in the right pelvis measuring 3.9 x 3.3 cm with mild associated presacral fluid. This is unchanged from 07/10/2019 was described as far back as 2017. IMPRESSION: No acute findings. Fatty liver. Small hiatus hernia. Stable 3.9 x 3.3 cm right pelvic mass described as far back as 2017, likely benign. Thank you for allowing us to participate in the care of your patient. Dictated and Authenticated by: Tia Brown MD 02/07/2020 6:48 AM Eastern Time ([place] & [place]) <Megan Foster DO - Last Filed: 02/07/20 20:53> 0800 --please see Dr. Chavira's note for initial presentation, exam and plan. Case endorsed to follow-up on patient's response to additional fluids and if patient continues to do well, plan is for discharge home. 0920 --patient feels much better. A CBC was just obtained and notes a hemoglobin of 10 which is her baseline with normal white blood cell count. Anion gap normalized. Repeat potassium 3.2 which was repleted with p.o. potassium. Patient is requesting to go home. She had no acute complaints. Advised to follow up with the primary care doctor for re-evaluation. Usual and customary return precautions given prior to discharge. Medical Records Medical records reviewed: Yes I reviewed the patient's medical records. Lab Data Lab results reviewed: Yes I reviewed the patient's lab results. ECG Data Attestation: I personally reviewed and interpreted this ECG (s) as follows: Interpretation: rate of 131, sinus, no acute st elevation or depression, NM 132, QTc 469, QRS 92. HPI <Paul Chavira DO - Last Filed: 02/07/20 07:47> General Date/Time Provider Initiated Documentation: 02/07/20 04:14 . HPI Narrative: This is a 74-year-old female with a past medical history of chronic alcoholism, chronic rib fractures, chronic medical noncompliance, chronic presacral mass which is stable, multiple visits recently for alcoholism, vomiting, and electrolyte abnormalities who presents today for evaluation of vomiting. Patient states her last drink was 6 days ago. She has not been able to get any alcohol since then. Patient states that starting at noon today she has had 3-4 episodes of vomiting. She denies hematemesis, coffee-ground emesis, she does admit to occasional grainy loose stools but this is improved over the last 24 to 48 hours. She denies any hematochezia or melena. She does admit to mild epigastric tenderness and achiness which she states she has had chronically. She denies any significant acute changes otherwise. She denies any chest pain, chest tightness, chest heaviness, bandlike sensation around the chest. She denies any change in food. She denies any other complaints at this time. Related Data Home Medications Medication Instructions Recorded Confirmed folic acid 1 mg PO DAILY #14 tab 08/11/18 01/30/20 Refresh Plus 1 drp OU Q4H WHILE AWAKE #30 each 06/20/19 01/30/20 fluticasone propionate 1 spray NS DAILY #15.8 ml 06/20/19 01/30/20 venlafaxine 150 mg 150 mg PO DAILY #30 cap 06/27/19 01/30/20 capsule,extended release 24 hr venlafaxine 37.5 mg 37.5 mg PO DAILY #30 cap 06/27/19 01/30/20 capsule,extended release 24 hr amlodipine 10 mg tablet 10 mg PO DAILY #90 tab 06/28/19 01/30/20 magnesium oxide 400 mg PO BID #180 cap 07/17/19 01/30/20 bisacodyl 10 mg PO .q72h prn PRN #10 tab 08/19/19 01/30/20 food supplemt, lactose-reduced 414 ml PO DAILY #21499 ml 08/24/19 01/30/20 pantoprazole 40 mg tablet,delayed 40 mg PO DAILY #90 tab 08/24/19 01/30/20 release gabapentin 300 mg capsule 300 mg PO BID #90 cap 08/28/19 01/30/20 hydrochlorothiazide 12.5 mg tablet 12.5 mg PO DAILY #90 tab 08/28/19 01/30/20 metoprolol tartrate 50 mg tablet 50 mg PO BID #180 tab 08/28/19 01/30/20 sennosides 8.6 mg tablet 8.6 mg PO BID #180 tab 08/28/19 01/30/20 meclizine 25 mg tablet 25 mg PO TID PRN #30 tab 09/14/19 01/30/20 multivitamin 1 tab PO DAILY #90 tab 09/14/19 01/30/20 potassium chloride 10 mEq 10 meq PO DAILY #90 tab 09/14/19 01/30/20 tablet,extended release(part/cryst) loperamide 2 mg PO Q4H PRN #20 cap 11/03/19 01/30/20 promethazine 25 mg PO Q6H PRN #10 tab 11/03/19 01/30/20 dicyclomine 10 mg capsule 10 mg PO QID PRN #40 cap 11/06/19 01/30/20 sucralfate 1 gram tablet 1 g PO AC & HS #120 tab 11/06/19 01/30/20 potassium chloride 20 meq PO BID #10 ea 11/23/19 01/30/20 thiamine mononitrate (vit B1) 100 mg PO DAILY #10 tab 11/23/19 01/30/20 [Vitamin B-1 (mononitrate)] prochlorperazine maleate 10 mg PO TID PRN #7 tab 01/02/20 01/30/20 [Compazine] ipratropium 0.5 mg-albuterol 3 mg 3 ml IH QID PRN #90 ml 01/04/20 01/30/20 (2.5 mg base)/3 mL nebulization soln ondansetron HCl [Zofran] 4 mg PO Q8H #12 tab 02/07/20 Previous Rx's Medication Instructions Recorded folic acid 1 mg PO DAILY #14 tab 08/11/18 Refresh Plus 1 drp OU Q4H WHILE AWAKE #30 each 06/20/19 fluticasone propionate 1 spray NS DAILY #15.8 ml 06/20/19 venlafaxine 150 mg 150 mg PO DAILY #30 cap 06/27/19 capsule,extended release 24 hr venlafaxine 37.5 mg 37.5 mg PO DAILY #30 cap 06/27/19 capsule,extended release 24 hr amlodipine 10 mg tablet 10 mg PO DAILY #90 tab 06/28/19 magnesium oxide 400 mg PO BID #180 cap 07/17/19 bisacodyl 10 mg PO .q72h prn PRN #10 tab 08/19/19 food supplemt, lactose-reduced 414 ml PO DAILY #31482 ml 08/24/19 pantoprazole 40 mg tablet,delayed 40 mg PO DAILY #90 tab 08/24/19 release gabapentin 300 mg capsule 300 mg PO BID #90 cap 08/28/19 hydrochlorothiazide 12.5 mg tablet 12.5 mg PO DAILY #90 tab 08/28/19 metoprolol tartrate 50 mg tablet 50 mg PO BID #180 tab 08/28/19 sennosides 8.6 mg tablet 8.6 mg PO BID #180 tab 08/28/19 meclizine 25 mg tablet 25 mg PO TID PRN #30 tab 09/14/19 multivitamin 1 tab PO DAILY #90 tab 09/14/19 potassium chloride 10 mEq 10 meq PO DAILY #90 tab 09/14/19 tablet,extended release(part/cryst) loperamide 2 mg PO Q4H PRN #20 cap 11/03/19 promethazine 25 mg PO Q6H PRN #10 tab 11/03/19 dicyclomine 10 mg capsule 10 mg PO QID PRN #40 cap 11/06/19 sucralfate 1 gram tablet 1 g PO AC & HS #120 tab 11/06/19 potassium chloride 20 meq PO BID #10 ea 11/23/19 thiamine mononitrate (vit B1) 100 mg PO DAILY #10 tab 11/23/19 [Vitamin B-1 (mononitrate)] prochlorperazine maleate 10 mg PO TID PRN #7 tab 01/02/20 [Compazine] ipratropium 0.5 mg-albuterol 3 mg 3 ml IH QID PRN #90 ml 01/04/20 (2.5 mg base)/3 mL nebulization soln ondansetron HCl [Zofran] 4 mg PO Q8H #12 tab 02/07/20 Allergies Allergy/AdvReac Type Severity Reaction Status Date / Time Penicillins Allergy Mild Rash Verified 02/07/20 04:17 ramipril Allergy Unknown ITCHING Verified 02/07/20 04:17 meperidine [From Demerol] AdvReac Severe Nausea Verified 02/07/20 04:17 bupropion AdvReac Mild GI upset Verified 02/07/20 04:17 AMBER Inhibitors AdvReac Unknown COUGH Verified 02/07/20 04:17 alendronate sodium AdvReac Unknown GI Distress Verified 02/07/20 04:17 clarithromycin AdvReac Unknown intolerant Verified 02/07/20 04:17 paroxetine AdvReac Unknown Diarrhea Verified 02/07/20 04:17 General Stated Complaint: ETOHWithdr JORDAN: 2 Review of Systems <Paul Chavira DO - Last Filed: 02/07/20 07:47> All systems reviewed & are unremarkable except as noted in HPI and below PFSH <Paul Chavira DO - Last Filed: 02/07/20 07:47> Medical History Alcohol abuse (Chronic) Alcoholic ketosis (Resolved) Allergic rhinitis (Chronic) Anemia (Chronic 12/20/16) Back pain, chronic (Chronic) CAP (community acquired pneumonia) (Resolved) Cataract (Chronic 11/07/15) Cervical radicular pain (Chronic) neck pain and [facility] Chronic alcoholic gastritis (Chronic 10/12/17) pls refrain from alcohol Chronic diarrhea (Acute) Contusion of left little finger (Acute) Corneal ulcer, right (Inactive ~08/23/18) 08/23/18; UV-kb Depression (Chronic) Elev transaminase/LDH (Chronic) due to alcohol Fall (Acute) Falling (Acute) Genital herpes simplex (Chronic) recurrent gential; suppressive Valtrex GERD (gastroesophageal reflux disease) (Chronic) GI bleed (Resolved 12/20/16) Headache (Resolved) Hyperlipidemia (Chronic) Hypertension (Chronic) high today; she will check readings at home 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 Multiple rib fractures (Resolved) 03/11/19 [facility] Non-cardiac chest pain (Resolved 09/21/16) [facility] 09/21/16 NEGATIVE MP Osteoarthritis (Chronic) Osteopenia (Chronic) 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) Peripheral edema (Acute) Pleural effusion on left (Resolved) 03/11/19 [facility] Right rib fracture (Resolved) Sciatica (Chronic) right, epidural injuections [facility] Tendinitis of left rotator cuff (Inactive) Tubular adenoma of colon (Chronic 01/28/17) Urinary incontinence (Chronic) 01/24/13 urethral suspension and sling at [facility] (bladder suspension 1991) Wernicke encephalopathy (Chronic) Surgical History Bladder Surgery suspension Colonoscopy - MAC (01/28/17) EGD - MAC (12/20/16) History of bilateral ligation of fallopian tubes (Inactive) Ligation of fallopian tube Repair bladder injury, simple Family History Mother No problems noted. Father , DROWNED at age 50. No problems noted. Sister Personal history of malignant neoplasm MELANOMA Sister No problems noted. Grandfather Personal history of malignant neoplasm STOMACH Grandfather Personal history of malignant neoplasm PROSTATE Grandmother Heart disease OR Acute ill-defined cerebrovascular disease Grandmother Personal history of malignant neoplasm UTERINE Aunt , OR Heart disease OR Aunt , OR Heart disease Brother No problems noted. Social History Smoking/Tobacco Use Status: Former Tobacco Use Alcohol Intake: current Alcohol Intake frequency: 3 or more drinks per day Alcohol type: hard liquor Drug use: Never Substance use type: does not use Current gender identity: female Do you feel safe at home: Yes Do you feel safe in your relationship?: Yes Additional Social history: Exam <Paul Chavira DO - Last Filed: 02/07/20 07:47> Narrative Exam Narrative: 1.Const: Disheveled, vomitus over anterior chest. Appears older than stated age 2.Eyes: PERRL, no conjunctival injection, and symmetrical lids. 3.ENT: Atraumatic external nose and ears. Notably dry MM. Neck: Symmetric, trachea midline, No thyromegaly. 4.CVS: +S1/S2, No murmurs or gallops. Peripheral pulses 2+ and equal in all extremities. Brisk capillary refill in all extremities. 5.RESP: Unlabored respiratory effort. Clear to auscultation bilaterally. No wheezes rales or rhonchi 6.GI: Soft, nondistended, minimal epigastric tenderness. No pain at McBurney's point, negative Zavala sign, no signs of an acute surgical abdomen 7.MSK: Normocephalic/Atraumatic, Extremities w/o deformity or ttp No cyanosis or clubbing, Normal movement of all extremities 8.Skin: Warm, Dry. No rashes or lesions. 9.Neuro: padder II-XII grossly intact. Sensation grossly intact, no focal neurologic deficits. 10.Psych: (AAO) x3. Appropriate mood and affect Course <Paul Sheridan Fan - Last Filed: 02/07/20 07:47> Vital Signs Vital signs: Vital Signs Temperature 36.7 C 02/07/20 04:09 Pulse 140 H 02/07/20 04:09 Respiratory Rate 27 H 02/07/20 04:09 Blood Pressure 144/86 H 02/07/20 04:09 Pulse Oximetry 96 02/07/20 04:09 Temperature 36.7 C 02/07/20 04:09 Temperature Source Skin 02/07/20 04:09 Pulse 140 H 02/07/20 04:09 Respiratory Rate 27 H 02/07/20 04:09 Blood Pressure 144/86 H 02/07/20 04:09 Blood Pressure Position Supine 02/07/20 04:09 Pulse Oximetry 96 02/07/20 04:09 Oxygen Delivery Method Room Air 02/07/20 04:09 Oxygen Flow Rate 0 02/07/20 04:09 Pain Level 7 02/07/20 04:09 Sign Out <Paul Chavira DO - Last Filed: 02/07/20 07:47> Sign Out Data: Sign Out Comment: repeat assessment after 1-2 more hours of observation with banana bag. Last updated by Paul Chavira DO at 02/07/20 07:52
[2020-02-07] MEDS: Ondansetron 4 MG/2 ML VIAL IVP (04:27)
[2020-02-07] MEDS: Normal Saline 1,000 ML 1000 ML IV ×2 (04:28→05:48)
[2020-02-07 04:41] LABS: Ammonia 22 umol/L (11-32)
[2020-02-07 04:53] LABS: ALT 93 U/L (14-59); AST 98 U/L (15-37); Albumin 3.6 g/dL (3.4-5.0); Alkaline Phosphatase 141 U/L (46-116); Anion Gap 25.5 mmol/L (3-11); BUN 15 mg/dL (7-18); Bilirubin, Total 2.4 mg/dL (0.2-1.0); CO2 18.5 mmol/L (21.0-32.0); Chloride 95 mmol/L (98-107); Glucose 228 mg/dL (74-106); INR 1.1 (0.9-1.1); Lipase 114 U/L (73-393); Magnesium 1.5 mg/dL (1.8-2.4); PTT Activated 21.2 sec (21.0-31.4); Potassium 3.7 mmol/L (3.5-5.1); Sodium 139 mmol/L (136-145); Total Protein 7.1 g/dL (6.4-8.2)
[2020-02-07 04:54] LABS: Troponin I < 0.05 ng/mL (<0.06)
[2020-02-07 04:55] LABS: ETHANOL BLOOD < 3.0 mg/dL (<3)
[2020-02-07] MEDS: MAGNESIUM SULFATE 1 GM/100 ML BAG IVPB (05:13)
--- NOTE | 2020-02-07 05:15 | DI.RAD_ITS ---
EXAM: 2D digital imaging was performed. CLINICAL HISTORY: vomiting, eval for obstruction. COMPARISON: CR,XR XR ABD FLAT UPRIGHT PA CHEST from 08/15/[address] CHEST/ABD/PEL WO from 02/07/2020 TECHNIQUE: Supine and uprightSupine and Lateral views of the abdomen was performed. FINDINGS: LUNG BASES: Clear. No pleural effusion or pneumothorax. Heart: Upper limits of normal in size. BOWEL GAS PATTERN: Nondistended. FREE AIR: None. CALCIFICATIONS: No radiopaque calcifications. OSSEOUS STRUCTURES: Normal for age. Old bilateral rib fractures. Degenerative changes seen in the sp ine. Left convex thoracolumbar scoliosis. Old clavicular fractures. OTHER FINDINGS: None. IMPRESSION: No evidence of an acute abdomen. DATA REPOSITORY: RADIATION DOSE DELIVERED:
--- NOTE | 2020-02-07 05:26 | DI.VRAD_ITS ---
PROCEDURE INFORMATION: Exam: XR Complete Acute Abdomen Series Exam date and time: 02/07/2020 4:57 AM Age: 74 years old Clinical indication: Vomiting; Patient HX: Eval for obstruction TECHNIQUE: Imaging protocol: XR complete acute abdomen series, including 2 or more views of the abdomen and a single view chest. COMPARISON: CR XR PORTABLE CHEST AP 01/02/2020 10:46 AM FINDINGS: Lungs: Normal. No consolidation. Pleural space: Normal. No pneumothorax. Heart/Mediastinum: Stable cardiomegaly. Gastrointestinal tract: Visualized bowel gas pattern is unremarkable. Intraperitoneal space: Normal. No free air. Bones/joints: Degenerative changes throughout the lower spine. No fracture or dislocation. Mild lumbar levoscoliosis. Old, healed posterior rib fractures bilaterally. There are old distal clavicular fractures. Soft tissues: Normal. IMPRESSION: 1. No acute findings. 2. Stable cardiomegaly. Dictated and Authenticated by: Tia Brown MD. Ordering:SHADI Miller MD
[2020-02-07] MEDS: Metoclopramide 10 MG/2 ML VIAL IVP (06:08)
--- NOTE | 2020-02-07 06:21 | DI.CT_ITS ---
EXAM: CT CHEST/ABD/PEL WO CLINICAL HISTORY: wretching, epigastric pain, now right chest pain. TECHNIQUE: Imaging Protocol: Axial computed tomography images with coronal and sagittal reformatted images were created and reviewed COMPARISON: CT CT CHEST/ABD/PEL W from 07/10/[address] ABDOMEN PELVIS W from 10/30/[address] ABDOMEN PELVIS W from 12/17/2019 FINDINGS: CHEST: Thyroid: Unremarkable as visualized. Tracheobronchial tree: Patent where visualized. Mediastinum and Vilma: No dominant adenopathy or fluid collection. Pulmonary parenchyma: There is a stable 1.1 cm opacity in the right upper lobe. Linear atelectasis o r scarring is seen in the upper lobes bilaterally. Linear atelectasis or scarring is seen in the jessica g bases. There is a persistent infiltrate in the left lingula which may represent scarring or atelec tasis. Pleura: No effusion or pneumothorax. Lymph nodes: Within normal limits. Aorta: The ascending thoracic aorta measures 3.9 cm in diameter. This is unchanged. Atherosclerosis. Heart: Not enlarged. Mild coronary artery calcification. No significant pericardial effusion. Bones: Old T11 and T12 compression deformities. Old bilateral rib fractures. ABDOMEN: Liver: Fatty liver. No measurable mass. Gallbladder and biliary tract: No radiodense calculus or dilation. Pancreas: Normal density, no abnormal calcifications or inflammatory process. Pancreatic atrophy. Spleen: Normal. Kidneys: Normal size, contour and axis. Nonobstructing left nephrolithiasis. Stable bilateral renal cysts. Adrenal glands: Stable left adrenal nodule. Unremarkable right adrenal gland. Aorta: Abdominal portion non-dilated. Atherosclerosis. Lymph nodes: Within normal limits. PELVIS: Bladder: Symmetric distention, no gross wall thickening. Bowel: No obstruction or bowel wall thickening. Normal appendix. Small hiatal hernia. Peritoneal cavity: No ascites, collection or mesenteric inflammatory response. Stable 3.9 cm presacra l soft tissue mass. Bones: Stable grade 1 anterolisthesis of L4 on L5. Multilevel degenerative changes in the lumbar spi ne. Reproductive organs: Within normal limits. IMPRESSION: 1. No acute abdominal or pelvic process. 2. Atelectasis, scarring or pneumonia in the lung bases bilaterally. 3. Stable 1.1 cm opacity in the right upper lobe. RADIATION DOSE DELIVERED: 1,025.77mGy.cm Total DLP 1,025.77mGy.cm Total DLP DATA REPOSITORY: All CT scans at this facility are submitted to the National Radiology Data Registry (NRDR) Dose Index Registry (DIR) with the [employer] ([employer]). RADIATION OPTIMIZATION: All CT scans at this facility use at least one of these dose optimization te chniques: automated exposure control; mA and/or kV adjustment per patient size (includes targeted exa ms where dose is matched to clinical indication); or iterative reconstruction.
--- NOTE | 2020-02-07 06:49 | DI.VRAD_ITS ---
PROCEDURE INFORMATION: Exam: CT Chest Without Contrast Exam date and time: 02/07/2020 5:57 AM Age: 74 years old Clinical indication: Abdominal pain; Epigastric; Right-sided chest pain TECHNIQUE: Imaging protocol: Computed tomography of the chest without contrast. Radiation optimization: All CT scans at this facility use at least one of these dose optimization techniques: automated exposure control; mA and/or kV adjustment per patient size (includes targeted exams where dose is matched to clinical indication); or iterative reconstruction. COMPARISON: CT CHEST/ABD/PEL W 07/10/2019 8:54 PM FINDINGS: Lungs: There is a stable 1 x 1.1 cm ground-glass opacity in the right apex. Linear atelectasis in the upper lobes. Dependent atelectasis at the lung bases. Pleural space: Trace pleural effusions. Heart: Normal sized heart. No pericardial effusion. Mediastinal space: Small hiatus hernia. Aorta: The a atherosclerotic aorta. Ascending aorta is mildly aneurysmal measuring 3.9 cm unchanged from the prior exam. Lymph nodes: Unremarkable. No enlarged lymph nodes. Bones/joints: Old, healed bilateral rib fractures. Soft tissues: Unremarkable. IMPRESSION: 1. Subsegmental atelectasis at the lung bases and trace pleural effusions. 2. Stable 1.1 cm ground-glass opacity in the right apex. This is unchanged since 2019 . 3. Small hiatus hernia. PROCEDURE INFORMATION: Exam: CT Abdomen And Pelvis Without Contrast Exam date and time: 02/07/2020 5:57 AM Age: 74 years old Clinical indication: Abdominal pain; Epigastric; Right-sided chest pain TECHNIQUE: Imaging protocol: Computed tomography of the abdomen and pelvis without contrast. Radiation optimization: All CT scans at this facility use at least one of these dose optimization techniques: automated exposure control; mA and/or kV adjustment per patient size (includes targeted exams where dose is matched to clinical indication); or iterative reconstruction. COMPARISON: CT CHEST/ABD/PEL W 07/10/2019 8:[address] abdomen and pelvis report 10/25/2016. FINDINGS: Liver: Fatty liver. Gallbladder and bile ducts: Normal. No calcified stones. No ductal dilation. Pancreas: Pancreatic atrophy. Spleen: Normal. No splenomegaly. Adrenals: Stable left adrenal thickening. Right adrenal gland is unremarkable. Kidneys and ureters: There are multiple renal cysts , largest 3.3 cm in the anterior right kidney , unchanged from the prior exam. No stones or hydronephrosis. Stomach and bowel: Small hiatus hernia. Unremarkable small and large bowel. Appendix: Normal appendix. Intraperitoneal space: Unremarkable. No free air. No significant fluid collection. Vasculature: Unremarkable. No abdominal aortic aneurysm. Lymph nodes: Unremarkable. No enlarged lymph nodes. Bladder: Unremarkable as visualized. Reproductive: Unremarkable as visualized. Bones/joints: Grade 1 anterolisthesis of L4 on L5, stable. Minimal chronic compression fractures of the T11-T12 endplates .. No acute fracture. Soft tissues: Unremarkable. Other findings: Stable lobular soft tissue mass in the right pelvis measuring 3.9 x 3.3 cm with mild associated presacral fluid. This is unchanged from 07/10/2019 was described as far back as 2017. IMPRESSION: No acute findings. Fatty liver. Small hiatus hernia. Stable 3.9 x 3.3 cm right pelvic mass described as far back as 2017, likely benign. Dictated and Authenticated by: Tia Brown MD. Ordering:SHADI Miller MD
[2020-02-07] MEDS: LORazepam 2 MG/ML VIAL 1 MG IVP (07:18)
[2020-02-07 07:28] LABS: Anion Gap 16.4 mmol/L (3-11); BUN 13 mg/dL (7-18); CO2 22.6 mmol/L (21.0-32.0); CREATININE 1.16 mg/dL (0.55-1.02); Calcium 8.8 mg/dL (8.5-10.1); Chloride 103 mmol/L (98-107); Estimated GFR 45.79 (mL/min/1.73m2); Glucose 190 mg/dL (74-106); Potassium 3.6 mmol/L (3.5-5.1); Sodium 142 mmol/L (136-145)
[2020-02-07] MEDS: MAGNESIUM SULFATE 8.12 MEQ, MULTIVITAMIN 10 ML, THIAMINE 100 MG, FOLIC ACID 1 MG in Nor... 168.867 MG IV (08:13)
[2020-02-07 09:21] LABS: Abs Immature Grans 0.01 k/cumm (0.0-0.09); Absolute Basophil Count 0.01 k/cumm (0.0-0.2); Absolute Eosinophil Count 0.02 k/cumm (0.0-0.7); Absolute Lymphocyte Count 0.18 k/cumm (1.2-3.4); Absolute Monocyte Count 0.34 k/cumm (0.11-0.7); Absolute Neutrophil Count 5.14 k/cumm (1.2-6.7); Basophils % 0.2; Eosinophils % 0.4; HCT 32.3 % (36.0-46.0); Immature Grans % 0.2 %; Lymphocytes % 3.2; Mean Corpuscular Volume 87.3 fL (80-95); Mean Platelet Volume 9.5 fL (8.0-11.0); Platelet Count 270 x1000/uL (130-400)
[2020-02-07 09:44] LABS: Anion Gap 9.8 mmol/L (3-11); BUN 12 mg/dL (7-18); CO2 29.2 mmol/L (21.0-32.0); CREATININE 0.99 mg/dL (0.55-1.02); Calcium 8.4 mg/dL (8.5-10.1); Chloride 103 mmol/L (98-107); Estimated GFR 54.98 (mL/min/1.73m2); Glucose 131 mg/dL (74-106); Potassium 3.2 mmol/L (3.5-5.1); Sodium 142 mmol/L (136-145)
[2020-02-07] MEDS: Potassium Chloride 20 MEQ TABCR 40 MEQ PO (10:07)
== END 2020-02-07 10:30 | disposition home or self-care (01) ==
PROVIDERS: Student in an Organized Health Care Education/Training Program; Emergency Provider Physician Assistant; PCP Family Medicine
DX: R11.2 Nausea with vomiting, unspecified (principal); R10.13 Epigastric pain; E83.42 Hypomagnesemia; E86.0 Dehydration; E87.6 Hypokalemia; K29.20 Alcoholic gastritis without bleeding; F10.20 Alcohol dependence, uncomplicated
CPT/HCPCS: 36415; 71250; 80048; 80053; 83690; 93005; 96361; 96365; 96366; 96367; 96375; 99285; 74022; 74176; 80320; 82140; 83735; 84443; 84484; 85025; 85610; 85730; 93010; J2060; J2405; J2765; J3475

== ENCOUNTER 2020-02-08 09:17 | Emergency (ER) | payer OTHER, SELFPAY ==
[2020-02-08] VITALS (14 sets, daily range): BP systolic 150–161; BP diastolic 67–94; PULSE 89–104; RESP 17–18; TEMP 36.3–36.7; O2SAT 95–98
--- NOTE | 2020-02-08 09:29 | ED.GENADUL_ITS ---
Discharge Plan Disposition Patient Disposition: HOME Condition: Stable Discharge Details Chief Complaint: Nausea/Vomit/Diar Clinical Impression: Abdominal pain, vomiting, and diarrhea Primary Care Provider: Lavelle Galindo ED Provider: Diana Luu Home Meds and New Rx's Prescriptions: No Action meclizine 25 mg tablet 25 mg PO TID PRN (Reason: dizziness) Qty: 30 RF: 1 venlafaxine 37.5 mg capsule,extended release 24hr 37.5 mg PO DAILY Qty: 30 RF: 11 venlafaxine 150 mg capsule,extended release 24hr 150 mg PO DAILY Qty: 30 RF: 11 hydrochlorothiazide 12.5 mg tablet 12.5 mg PO DAILY Qty: 90 RF: 3 gabapentin 300 mg capsule 300 mg PO BID Qty: 90 RF: 5 metoprolol tartrate 50 mg tablet 50 mg PO BID Qty: 180 RF: 3 sennosides [Senokot] 8.6 mg tablet 8.6 mg PO BID Qty: 180 RF: 3 magnesium oxide 400 mg magnesium capsule 400 mg PO BID Qty: 180 RF: 3 amlodipine 10 mg tablet 10 mg PO DAILY Qty: 90 RF: 3 pantoprazole 40 mg tablet,delayed release (DR/EC) 40 mg PO DAILY Qty: 90 RF: 3 Ensure Active High Protein Liquid 414 ml PO DAILY Qty: 12175 RF: 11 multivitamin [Multiple Vitamins] Tablet 1 tab PO DAILY Qty: 90 RF: 3 potassium chloride [Klor-Con M10] 10 mEq tablet,ER particles/crystals 10 meq PO DAILY Qty: 90 RF: 3 dicyclomine 10 mg capsule 10 mg PO QID PRN (Reason: belly pain) Qty: 40 RF: 0 sucralfate 1 gram tablet 1 g PO AC & HS Qty: 120 RF: 5 ipratropium-albuterol 0.5 mg-3 mg(2.5 mg base)/3 mL solution for nebulization 3 ml IH QID PRN (Reason: shortness of breath) Qty: 90 RF: 3 folic acid 1 mg Tablet 1 mg PO DAILY Qty: 14 RF: 0 Refresh Plus 0.5 % Dropperette 1 drp OU Q4H WHILE AWAKE Qty: 30 RF: 0 fluticasone propionate 50 mcg/actuation [facility],Suspension 1 spray NS DAILY Qty: 15.8 RF: 0 bisacodyl 5 mg Tablet,Delayed Release (Dr/Ec) 10 mg PO .q72h prn PRN (Reason: constipation - if no BM In 3 days) Qty: 10 RF: 0 promethazine 25 mg tablet 25 mg PO Q6H PRN (Reason: nausea and vomiting) Qty: 10 RF: 0 loperamide 2 mg capsule 2 mg PO Q4H PRN (Reason: loose stool) Qty: 20 RF: 0 potassium chloride 20 mEq Packet 20 meq PO BID Qty: 10 RF: 0 thiamine mononitrate (vit B1) [Vitamin B-1 (mononitrate)] 100 mg Tablet 100 mg PO DAILY Qty: 10 RF: 0 ondansetron HCl [Zofran] 4 mg tablet 4 mg PO Q8H Qty: 12 RF: 0 prochlorperazine maleate [Compazine] 10 mg tablet 10 mg PO TID PRN (Reason: nausea and vomiting) Qty: 7 RF: 0 Discharge Instructions Instructions: Hypokalemia (ED), Acute Nausea and Vomiting (ED), Hypomagnesemia (ED) Additional Instructions: Drink plenty of fluids. Rest activities as tolerated. Use nausea medication provided if needed for severe nausea and vomiting. Please follow-up with your primary care doctor this week for incidental findings noted on your CT scan as discussed specifically lung findings as well as hiatal hernia noted on yesterday's CT scan. Avoid drinking alcohol. Please review information regarding hypokalemia and hypomagnesemia specifically meaning you have low potassium and low magnesium. Please review dietary recommendations to increase your magnesium and potassium. Return for worsening, concerns or alarming symptoms sooner if needed Discharge Data Discharge Date/Time-TO BE ENTERED AT DEPARTURE: 02/08/20 12:13 Medical Decision Making <CELINA Cortez - Last Filed: 02/08/20 15:58> Is a 74-year-old patient presenting for nausea vomiting diarrhea for the last 2 days. Patient was seen in the emergency room yesterday for similar complaints. Patient reports onset of symptoms 2 days ago noted, patient reports symptoms are similar. Patient reports vomited x4 this morning. Described as bilious vomitus. Patient denies any blood with bowel movements or in vomitus. Patient describes abdominal pain unchanged from yesterday. patient does report a history of gastritis. Previous imaging reveals hiatal hernia. Stable pelvic mass. Atelectasis in the lung base opacity in the apex. We will plan to obtain baseline labs urinalysis hydrate and provide symptomatic relief. Patient is adamant that she declines CT imaging today as she had CT imaging of chest abdomen and pelvis yesterday. Patient will consent EKG. Patient's EKG reveals sinus rhythm with a heart rate of 97. No significant ST segment changes. QTC noted to be 495. Patient's labs reviewed revealing no significant leukocytosis. Patient has a sodium of 133. Potassium noted to be 3.1. Plan to replace with 20 mEq by mouth. Magnesium noted to be 1.4. Plan to replace with 400 mg orally. Notable elevation of bilirubin and LFTs. Patient does have history of similar. Lipase normal. Patient's troponin is normal. Urinalysis reveals no acute infection. Previous CT Chest/abd/pelvis imaging reveals COMPARISON: CT CHEST/ABD/PEL W 07/10/2019 8:54 PM FINDINGS: Lungs: There is a stable 1 x 1.1 cm ground-glass opacity in the right apex. Linear atelectasis in the upper lobes. Dependent atelectasis at the lung bases. Pleural space: Trace pleural effusions. Heart: Normal sized heart. No pericardial effusion. Mediastinal space: Small hiatus hernia. Aorta: The a atherosclerotic aorta. Ascending aorta is mildly aneurysmal measuring 3.9 cm unchanged from the prior exam. Lymph nodes: Unremarkable. No enlarged lymph nodes. Bones/joints: Old, healed bilateral rib fractures. Soft tissues: Unremarkable. IMPRESSION: 1. Subsegmental atelectasis at the lung bases and trace pleural effusions. 2. Stable 1.1 cm ground-glass opacity in the right apex. This is unchanged since 2019 . 3. Small hiatus hernia. PROCEDURE INFORMATION: Exam: CT Abdomen And Pelvis Without Contrast Exam date and time: 02/07/2020 5:57 AM Age: 74 years old Clinical indication: Abdominal pain; Epigastric; Right-sided chest pain COMPARISON: CT CHEST/ABD/PEL W 07/10/2019 8:[address] abdomen and pelvis report 10/25/2016. FINDINGS: Liver: Fatty liver. Gallbladder and bile ducts: Normal. No calcified stones. No ductal dilation. Pancreas: Pancreatic atrophy. Spleen: Normal. No splenomegaly. Adrenals: Stable left adrenal thickening. Right adrenal gland is unremarkable. Kidneys and ureters: There are multiple renal cysts , largest 3.3 cm in the anterior right kidney , unchanged from the prior exam. No stones or hydronephrosis. Stomach and bowel: Small hiatus hernia. Unremarkable small and large bowel. Appendix: Normal appendix. Intraperitoneal space: Unremarkable. No free air. No significant fluid collection. Vasculature: Unremarkable. No abdominal aortic aneurysm. Lymph nodes: Unremarkable. No enlarged lymph nodes. Bladder: Unremarkable as visualized. Reproductive: Unremarkable as visualized. Bones/joints: Grade 1 anterolisthesis of L4 on L5, stable. Minimal chronic compression fractures of the T11-T12 endplates .. No acute fracture. Soft tissues: Unremarkable. Other findings: Stable lobular soft tissue mass in the right pelvis measuring 3.9 x 3.3 cm with mild associated presacral fluid. This is unchanged from 07/10/2019 was described as far back as 2017. IMPRESSION: No acute findings. Fatty liver. Small hiatus hernia. Stable 3.9 x 3.3 cm right pelvic mass described as far back as 2017, likely benign. Discussed patient CT results from her visit yesterday including incidental findings. Symptomatically patient feels significantly improved. Patient has not vomited since arrival. Reports her symptoms are improving. Patient refuses all imaging but is requesting discharge home at this time. Did discuss patient's potassium and magnesium abnormalities. To discuss sodium abnormalities. Recommended dietary replacement, information provided. Patient feels comfortable discharge home at this time. Patient is requesting nausea medication for discharge. Of note patient was seen in the emergency room yesterday and did receive a prescription for Zofran which she did not yet fill. Will give 3 to go tablets for symptomatic relief until able to fill previously prescribed medication. Recommend prompt follow-up with PCP The patient was stable and requested discharge. Prior to discharge, my usual and customary return precautions were reviewed with the patient - this included follow-up instructions and reasons to return to the Emergency Department if conditions worsens, does not improve as expected, or other new concerns arise. <Blaze Mccarthy MD - Last Filed: 02/08/20 09:44> I had a [id number] encounter with the patient. I evaluated the patient. I discussed case with VENDING SERVICE TECHNICIAN/PA and I reviewed VENDING SERVICE TECHNICIAN/PA note and agree with note as documented HPI <CELINA Cortez - Last Filed: 02/08/20 15:58> General Date/Time Provider Initiated Documentation: 02/08/20 09:27 . HPI Narrative: This is a 74-year-old patient presenting for complaints of nausea vomiting and diarrhea which began 2 days ago. Patient reports she is experiencing mild back pain since onset of symptoms. Patient denies chest pain, difficulty breathing shortness of breath or wheezing. Denies any fevers or chills. Patient does report mild abdominal discomfort. Patient reports symptoms are similar to what she experienced 2 days ago. Patient denies alcohol use for approximately 1 week however EMS did note 2 bottles of [employer] which are empty next to the chair in which she was found, patient reports these were from last week. Patient reports a history of gastritis. Patient has been seen in the emergency room several times for similar complaints. Patient reports she did have recent CT scans and declines any imaging today. Patient consents only to labs as well as management of her nausea. Patient is very specific that she refuses all CT imaging. Patient denies headache or dizziness. Patient reports vomiting 4 times this morning bilious vomit. Denies any blood in the vomitus. Patient reports watery diarrhea for the last 2 days. Denies any recent antibiotic use. Patient denies any other concerns or complaints at this time. Patient denies obvious Covid exposures. Denies rash. Patient does report that she has frequent urination and is concerned that she could have a bladder infection. Denies obvious dysuria. Does report urgency and incontinence. Denies any hematuria. Related Data Home Medications Medication Instructions Recorded Confirmed folic acid 1 mg PO DAILY #14 tab 08/11/18 01/30/20 Refresh Plus 1 drp OU Q4H WHILE AWAKE #30 each 06/20/19 01/30/20 fluticasone propionate 1 spray NS DAILY #15.8 ml 06/20/19 01/30/20 venlafaxine 150 mg 150 mg PO DAILY #30 cap 06/27/19 01/30/20 capsule,extended release 24 hr venlafaxine 37.5 mg 37.5 mg PO DAILY #30 cap 06/27/19 01/30/20 capsule,extended release 24 hr amlodipine 10 mg tablet 10 mg PO DAILY #90 tab 06/28/19 01/30/20 magnesium oxide 400 mg PO BID #180 cap 07/17/19 01/30/20 bisacodyl 10 mg PO .q72h prn PRN #10 tab 08/19/19 01/30/20 food supplemt, lactose-reduced 414 ml PO DAILY #74033 ml 08/24/19 01/30/20 pantoprazole 40 mg tablet,delayed 40 mg PO DAILY #90 tab 08/24/19 01/30/20 release gabapentin 300 mg capsule 300 mg PO BID #90 cap 08/28/19 01/30/20 hydrochlorothiazide 12.5 mg tablet 12.5 mg PO DAILY #90 tab 08/28/19 01/30/20 metoprolol tartrate 50 mg tablet 50 mg PO BID #180 tab 08/28/19 01/30/20 sennosides 8.6 mg tablet 8.6 mg PO BID #180 tab 08/28/19 01/30/20 meclizine 25 mg tablet 25 mg PO TID PRN #30 tab 09/14/19 01/30/20 multivitamin 1 tab PO DAILY #90 tab 09/14/19 01/30/20 potassium chloride 10 mEq 10 meq PO DAILY #90 tab 09/14/19 01/30/20 tablet,extended release(part/cryst) loperamide 2 mg PO Q4H PRN #20 cap 11/03/19 01/30/20 promethazine 25 mg PO Q6H PRN #10 tab 11/03/19 01/30/20 dicyclomine 10 mg capsule 10 mg PO QID PRN #40 cap 11/06/19 01/30/20 sucralfate 1 gram tablet 1 g PO AC & HS #120 tab 11/06/19 01/30/20 potassium chloride 20 meq PO BID #10 ea 11/23/19 01/30/20 thiamine mononitrate (vit B1) 100 mg PO DAILY #10 tab 11/23/19 01/30/20 [Vitamin B-1 (mononitrate)] prochlorperazine maleate 10 mg PO TID PRN #7 tab 01/02/20 01/30/20 [Compazine] ipratropium 0.5 mg-albuterol 3 mg 3 ml IH QID PRN #90 ml 01/04/20 01/30/20 (2.5 mg base)/3 mL nebulization soln ondansetron HCl [Zofran] 4 mg PO Q8H #12 tab 02/07/20 Previous Rx's Medication Instructions Recorded folic acid 1 mg PO DAILY #14 tab 08/11/18 Refresh Plus 1 drp OU Q4H WHILE AWAKE #30 each 06/20/19 fluticasone propionate 1 spray NS DAILY #15.8 ml 06/20/19 venlafaxine 150 mg 150 mg PO DAILY #30 cap 06/27/19 capsule,extended release 24 hr venlafaxine 37.5 mg 37.5 mg PO DAILY #30 cap 06/27/19 capsule,extended release 24 hr amlodipine 10 mg tablet 10 mg PO DAILY #90 tab 06/28/19 magnesium oxide 400 mg PO BID #180 cap 07/17/19 bisacodyl 10 mg PO .q72h prn PRN #10 tab 08/19/19 food supplemt, lactose-reduced 414 ml PO DAILY #72669 ml 08/24/19 pantoprazole 40 mg tablet,delayed 40 mg PO DAILY #90 tab 08/24/19 release gabapentin 300 mg capsule 300 mg PO BID #90 cap 08/28/19 hydrochlorothiazide 12.5 mg tablet 12.5 mg PO DAILY #90 tab 08/28/19 metoprolol tartrate 50 mg tablet 50 mg PO BID #180 tab 08/28/19 sennosides 8.6 mg tablet 8.6 mg PO BID #180 tab 08/28/19 meclizine 25 mg tablet 25 mg PO TID PRN #30 tab 09/14/19 multivitamin 1 tab PO DAILY #90 tab 09/14/19 potassium chloride 10 mEq 10 meq PO DAILY #90 tab 09/14/19 tablet,extended release(part/cryst) loperamide 2 mg PO Q4H PRN #20 cap 11/03/19 promethazine 25 mg PO Q6H PRN #10 tab 11/03/19 dicyclomine 10 mg capsule 10 mg PO QID PRN #40 cap 11/06/19 sucralfate 1 gram tablet 1 g PO AC & HS #120 tab 11/06/19 potassium chloride 20 meq PO BID #10 ea 11/23/19 thiamine mononitrate (vit B1) 100 mg PO DAILY #10 tab 11/23/19 [Vitamin B-1 (mononitrate)] prochlorperazine maleate 10 mg PO TID PRN #7 tab 01/02/20 [Compazine] ipratropium 0.5 mg-albuterol 3 mg 3 ml IH QID PRN #90 ml 01/04/20 (2.5 mg base)/3 mL nebulization soln ondansetron HCl [Zofran] 4 mg PO Q8H #12 tab 02/07/20 Allergies Allergy/AdvReac Type Severity Reaction Status Date / Time Penicillins Allergy Mild Rash Verified 02/08/20 09:22 ramipril Allergy Unknown ITCHING Verified 02/08/20 09:22 meperidine [From Demerol] AdvReac Severe Nausea Verified 02/08/20 09:22 bupropion AdvReac Mild GI upset Verified 02/08/20 09:22 AMBER Inhibitors AdvReac Unknown COUGH Verified 02/08/20 09:22 alendronate sodium AdvReac Unknown GI Distress Verified 02/08/20 09:22 clarithromycin AdvReac Unknown intolerant Verified 02/08/20 09:22 paroxetine AdvReac Unknown Diarrhea Verified 02/08/20 09:22 General Stated Complaint: Nausea/Vomit/Diar JORDAN: 3 Review of Systems <CELINA Cortez - Last Filed: 02/08/20 15:58> All systems reviewed & are unremarkable except as noted in HPI and below PFSH <CELINA Cortez - Last Filed: 02/08/20 15:58> Medical History Alcohol abuse (Chronic) Alcoholic ketosis (Resolved) Allergic rhinitis (Chronic) Anemia (Chronic 12/20/16) Back pain, chronic (Chronic) CAP (community acquired pneumonia) (Resolved) Cataract (Chronic 11/07/15) Cervical radicular pain (Chronic) neck pain and [facility] Chronic alcoholic gastritis (Chronic 10/12/17) pls refrain from alcohol Chronic diarrhea (Acute) Contusion of left little finger (Acute) Corneal ulcer, right (Inactive ~08/23/18) 08/23/18; [facility] Depression (Chronic) Elev transaminase/LDH (Chronic) due to alcohol Fall (Acute) Falling (Acute) Genital herpes simplex (Chronic) recurrent gential; suppressive Valtrex GERD (gastroesophageal reflux disease) (Chronic) GI bleed (Resolved 12/20/16) Headache (Resolved) Hyperlipidemia (Chronic) Hypertension (Chronic) high today; she will check readings at home 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 Multiple rib fractures (Resolved) 03/11/19 [facility] Non-cardiac chest pain (Resolved 09/21/16) [facility] [place] 09/21/16 NEGATIVE MP Osteoarthritis (Chronic) Osteopenia (Chronic) 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) Peripheral edema (Acute) Pleural effusion on left (Resolved) 03/11/19 [facility] Right rib fracture (Resolved) Sciatica (Chronic) right, epidural injuections [facility] Tendinitis of left rotator cuff (Inactive) Tubular adenoma of colon (Chronic 01/28/17) Urinary incontinence (Chronic) 01/24/13 urethral suspension and sling at [facility] (bladder suspension 1991) Wernicke encephalopathy (Chronic) Social History Smoking/Tobacco Use Status: Former Tobacco Use Alcohol Intake: current Alcohol Intake frequency: 3 or more drinks per day Alcohol type: hard liquor Drug use: Never Substance use type: does not use Current gender identity: female Do you feel safe at home: Yes Do you feel safe in your relationship?: Yes Additional Social history: Exam <CELINA Cortez - Last Filed: 02/08/20 15:58> Narrative Exam Narrative: CONST: Alert and oriented x 3. HENMT: Head nomocephalic, normal to inspection. Atraumatic. Hearing grossly normal. No rhinnorhea. Normal facial exam. Oral mucosa mildly dry. Tounge normal. Dentition normal. Normal posterior oropharynx. Uvula midline. EYES: General normal appearance. Alignment normal. Eyelids normal. Conjunctiva normal. Sclera normal. NECK: Normal visual inspection. FROM. No lymphadenopathy. Trachea midline. No Midline tenderness. CHEST: Normal insepection of the chest. RESP: Normal respiratory effort. Speaking full sentences. No cough. No wheezing. No retractions. Clear to auscaltation. Breath sound equal and present bilaterally. CARDIO: No JVD. Normal PMI. Regular Rate. Regular Rhythm. Normal peripheral pulses. GI: Normal inspection of abdomen. No distension. Soft. mild diffuse abdominal t enderness with palpation. Bowel sounds present in all 4 quadrants. No rebound. No gaurding. no peritoneal signs MUSCULOSKELETAL: Normal Gait. FROM of all extremities. Distal neurovascularly intact. Sensation intact distally. No distal edema present SKIN: Normal. Dry. No rashes. NEURO: Alert and awake. Speech clear. PSYCH: Normal affect. Cooperative. Course <CELINA Cortez - Last Filed: 02/08/20 15:58> Vital Signs Vital signs: Vital Signs Temperature 36.7 C 02/08/20 09:15 Pulse 104 H 02/08/20 09:15 Respiratory Rate 17 02/08/20 09:15 Blood Pressure 158/94 H 02/08/20 09:15 Pulse Oximetry 97 02/08/20 09:15 Temperature 36.7 C 02/08/20 09:15 Temperature Source Temporal Artery Scan 02/08/20 09:15 Pulse 104 H 02/08/20 09:15 Respiratory Rate 17 02/08/20 09:15 Respiratory Effort Non-Labored 02/08/20 09:22 Blood Pressure 158/94 H 02/08/20 09:15 Pulse Oximetry 97 02/08/20 09:15 Oxygen Delivery Method Room Air 02/08/20 09:15 Oxygen Flow Rate 0 02/08/20 09:15
[2020-02-08] MEDS: Ondansetron 4 MG/2 ML VIAL IVP (09:37)
[2020-02-08] MEDS: LORazepam 2 MG/ML VIAL 1 MG IVP (09:37)
[2020-02-08] MEDS: Normal Saline 1,000 ML 500 ML IV (09:38)
[2020-02-08 09:40] LABS: Abs Immature Grans 0.02 k/cumm (0.0-0.09); Absolute Basophil Count 0.01 k/cumm (0.0-0.2); Absolute Lymphocyte Count 0.89 k/cumm (1.2-3.4); Absolute Monocyte Count 0.41 k/cumm (0.11-0.7); Absolute Neutrophil Count 3.57 k/cumm (1.2-6.7); Basophils % 0.2; HCT 32.2 % (36.0-46.0); HGB 9.9 g/dL (12.0-15.5); Immature Grans % 0.4 %; Lymphocytes % 18.2; Mean Corp. HGB Concentration 30.7 g/dL (32.0-36.0); Mean Corpuscular Volume 87.7 fL (80-95); Mean Platelet Volume 9.1 fL (8.0-11.0); Monocytes % 8.4; Neutrophils % 72.8; Platelet Count 196 x1000/uL (130-400); RBC 3.67 m/cumm (4.00-5.20); RBC Distribution Width 20.1 % (11.7-14.6)
[2020-02-08 09:53] LABS: Anisocytosis 2+; Diff Comment RBC Morph Reviewed; Hypochromasia 1+; Microcytosis 1+; Poikilocytes 1+
[2020-02-08 09:55] LABS: ALT 95 U/L (14-59); AST 123 U/L (15-37); Albumin 3.6 g/dL (3.4-5.0); Alkaline Phosphatase 139 U/L (46-116); Anion Gap 10.1 mmol/L (3-11); BUN 6 mg/dL (7-18); Bilirubin, Total 2.1 mg/dL (0.2-1.0); CO2 28.9 mmol/L (21.0-32.0); CREATININE 0.95 mg/dL (0.55-1.02); Calcium 9.4 mg/dL (8.5-10.1); Chloride 94 mmol/L (98-107); Estimated GFR 57.66 (mL/min/1.73m2); Glucose 131 mg/dL (74-106); Lipase 73 U/L (73-393); Magnesium 1.4 mg/dL (1.8-2.4); Potassium 3.1 mmol/L (3.5-5.1); Sodium 133 mmol/L (136-145); Total Protein 6.9 g/dL (6.4-8.2)
[2020-02-08 09:59] LABS: Troponin I < 0.05 ng/mL (<0.06)
[2020-02-08 10:03] LABS: ETHANOL BLOOD < 3.0 mg/dL (<3)
[2020-02-08 10:59] LABS: Bilirubin Negative (Negative); Blood Negative (Negative); Clarity Clear (Clear); Glucose Negative (Negative); Ketones Trace mg/dL (Negative); Leukocyte Esterase Negative (Negative); Nitrite Negative (Negative); Urobilinogen 0.2 EU/dL (Up TO 0.2); pH 8.5 (5-8)
[2020-02-08 11:11] LABS: Bacteria Rare HPF (Negative); C & S Indicated? No; Casts Negative LPF (Negative); Crystals Negative HPF (Negative); Epithelial Cells Rare HPF (Negative); Mucus Negative (Negative); Other Cells Rare Renal (Negative); RBC Negative HPF (0-2); WBC 0-2 HPF (0-5)
== END 2020-02-08 12:13 | disposition home or self-care (01) ==
PROVIDERS: Emergency Provider Physician Assistant; PCP Family Medicine
DX: E87.1 Hypo-osmolality and hyponatremia (principal); R19.7 Diarrhea, unspecified; R11.2 Nausea with vomiting, unspecified; R10.13 Epigastric pain; E83.42 Hypomagnesemia; E87.6 Hypokalemia; I10 Essential (primary) hypertension
CPT/HCPCS: 36415; 80053; 83690; 93005; 96361; 96374; 96375; 99284; 80320; 81003; 81015; 83735; 84484; 85025; 93010; J2060; J2405

== ENCOUNTER 2020-03-12 01:41 | Emergency (ER) | payer OTHER, SELFPAY ==
[2020-03-12] VITALS (35 sets, daily range): BP systolic 112–165; BP diastolic 51–77; PULSE 54–118; RESP 9–23; TEMP 36.3; O2SAT 94–99
--- NOTE | 2020-03-12 01:36 | W.ED.GENAD ---
Discharge Plan Disposition Patient Disposition: HOME Condition: Stable Discharge Details Chief Complaint: ETOHWithdr Clinical Impression: Alcohol abuse Primary Care Provider: Lavelle Galindo ED Provider: Paul Chavira Home Meds and New Rx's Prescriptions: Continued meclizine 25 mg tablet 25 mg PO TID PRN (Reason: dizziness) Qty: 30 RF: 1 venlafaxine 37.5 mg capsule,extended release 24hr 37.5 mg PO DAILY Qty: 30 RF: 11 venlafaxine 150 mg capsule,extended release 24hr 150 mg PO DAILY Qty: 30 RF: 11 hydrochlorothiazide 12.5 mg tablet 12.5 mg PO DAILY Qty: 90 RF: 3 gabapentin 300 mg capsule 300 mg PO BID Qty: 90 RF: 5 metoprolol tartrate 50 mg tablet 50 mg PO BID Qty: 180 RF: 3 sennosides [Senokot] 8.6 mg tablet 8.6 mg PO BID Qty: 180 RF: 3 magnesium oxide 400 mg magnesium capsule 400 mg PO BID Qty: 180 RF: 3 amlodipine 10 mg tablet 10 mg PO DAILY Qty: 90 RF: 3 pantoprazole 40 mg tablet,delayed release (DR/EC) 40 mg PO DAILY Qty: 90 RF: 3 Ensure Active High Protein Liquid 414 ml PO DAILY Qty: 00266 RF: 11 multivitamin [Multiple Vitamins] Tablet 1 tab PO DAILY Qty: 90 RF: 3 potassium chloride [Klor-Con M10] 10 mEq tablet,ER particles/crystals 10 meq PO DAILY Qty: 90 RF: 3 dicyclomine 10 mg capsule 10 mg PO QID PRN (Reason: belly pain) Qty: 40 RF: 0 sucralfate 1 gram tablet 1 g PO AC & HS Qty: 120 RF: 5 ipratropium-albuterol 0.5 mg-3 mg(2.5 mg base)/3 mL solution for nebulization 3 ml IH QID PRN (Reason: shortness of breath) Qty: 90 RF: 3 folic acid 1 mg Tablet 1 mg PO DAILY Qty: 14 RF: 0 Refresh Plus 0.5 % Dropperette 1 drp OU Q4H WHILE AWAKE Qty: 30 RF: 0 fluticasone propionate 50 mcg/actuation [place],Suspension 1 spray NS DAILY Qty: 15.8 RF: 0 bisacodyl 5 mg Tablet,Delayed Release (Dr/Ec) 10 mg PO .q72h prn PRN (Reason: constipation - if no BM In 3 days) Qty: 10 RF: 0 promethazine 25 mg tablet 25 mg PO Q6H PRN (Reason: nausea and vomiting) Qty: 10 RF: 0 loperamide 2 mg capsule 2 mg PO Q4H PRN (Reason: loose stool) Qty: 20 RF: 0 potassium chloride 20 mEq Packet 20 meq PO BID Qty: 10 RF: 0 thiamine mononitrate (vit B1) [Vitamin B-1 (mononitrate)] 100 mg Tablet 100 mg PO DAILY Qty: 10 RF: 0 ondansetron HCl [Zofran] 4 mg tablet 4 mg PO Q8H Qty: 12 RF: 0 prochlorperazine maleate [Compazine] 10 mg tablet 10 mg PO TID PRN (Reason: nausea and vomiting) Qty: 7 RF: 0 Discharge Instructions Instructions: Abuse of Alcohol (ED) Additional Instructions: Please do your best to decrease your alcohol intake. Please eat foods high in potassium like banana, legumes, and beans. Drink plenty of fluids throughout the day. If you notice any worsening of your symptoms, or any new symptoms such as vomiting, diarrhea, fever, chills, shortness of breath, chest pain, numbness, weakness, or fainting , please return immediately to the emergency department for reevaluation. Please follow up with your primary care provider as soon as possible for reassessment and reevaluation. As always, it was a pleasure participating in your medical care today. Referrals: Lavelle Galindo [Primary Care Provider] - Medical Decision Making This is a 74-year-old female with a past medical history of chronic alcoholism, chronic rib fractures, chronic medical noncompliance, chronic presacral mass which is stable, multiple visits recently for alcoholism, vomiting, and electrolyte abnormalities who presents today for evaluation of vomiting. She presents today via EMS for evaluation of intoxication. Her life alert was tripped, when EMS arrived she was at home with an empty bottle of alcohol next to her. She is arousable to painful stimuli, otherwise appropriate. Vitals are stable, she was brought in for further evaluation. Currently the patient has no complaints at this time except for complaints of pain when stimulated with sternal rub. Review of systems is limited but otherwise negative. Of note the patient does state that she did drink this evening. She denies any IV or illicit drugs. She denies any isopropyl alcohol or rubbing alcohol use. She denies any suicidal ideations. Exam is unremarkable, GCS 14. Vital signs stable. We will gently rehydrate, evaluate for significant metabolic abnormality, monitor closely and reassess. Suspect alcohol intoxication without symptoms of toxic alcohol syndrome 3:20 AM Patient's laboratory work-up has returned, vital signs stabilized, patient's mental status is notably improved, she appears less intoxicated. GCS is improved to 15. Laboratory work-up demonstrates low WBC count, however this appears consistent with her prior levels. Hemoglobin stable at her chronic level of 10. Potassium slightly low at 3.1 we will replenish this, acetaminophen and salicylates negative. Ethyl alcohol is 330. We will continue to hydrate here, replete her potassium, monitor closely as she returns toward sobriety. Pending clinical sobriety I do feel that the patient can be discharged. 7 AM On reassessment patient is doing much better. She is notably clinically sober and asking to go home. She is feeling much better. Vitals are stable. The patient is able to speak clearly. There is no demonstration of any slurring of speech. There is evidence of clear decision making capacity. Patient is able to ambulate well without any difficulty. There are no signs of ataxia or stumbling motions. This time patient is stable for discharge. Signs and symptoms are consistent with intoxication which is now resolved. Patient will be discharged home. Discussed red flags which to return. I have extensively reviewed the treatment plan and discharge instructions with the patient. I have addressed all patient concerns at this time. The patient was made aware of what symptoms to monitor for that would warrant a return to the emergency department. Discussed the plan with the patient, they demonstrate verbal understanding and agreement with our assessment and plan at this time. HPI General Date/Time Provider Initiated Documentation: 03/12/20 01:43. HPI Narrative: This is a 74-year-old female with a past medical history of chronic alcoholism, chronic rib fractures, chronic medical noncompliance, chronic presacral mass which is stable, multiple visits recently for alcoholism, vomiting, and electrolyte abnormalities who presents today for evaluation of vomiting. She presents today via EMS for evaluation of intoxication. Her life alert was tripped, when EMS arrived she was at home with an empty bottle of alcohol next to her. She is arousable to painful stimuli, otherwise appropriate. Vitals are stable, she was brought in for further evaluation. Currently the patient has no complaints at this time except for complaints of pain when stimulated with sternal rub. Review of systems is limited but otherwise negative. Of note the patient does state that she did drink this evening. She denies any IV or illicit drugs. She denies any isopropyl alcohol or rubbing alcohol use. She denies any suicidal ideations. Related Data Home Medications Medication Instructions Recorded Confirmed folic acid 1 mg PO DAILY #14 tab 08/11/18 03/12/20 Refresh Plus 1 drp OU Q4H WHILE AWAKE #30 each 06/20/19 03/12/20 fluticasone propionate 1 spray NS DAILY #15.8 ml 06/20/19 03/12/20 venlafaxine 150 mg 150 mg PO DAILY #30 cap 06/27/19 03/12/20 capsule,extended release 24 hr venlafaxine 37.5 mg 37.5 mg PO DAILY #30 cap 06/27/19 03/12/20 capsule,extended release 24 hr amlodipine 10 mg tablet 10 mg PO DAILY #90 tab 06/28/19 03/12/20 magnesium oxide 400 mg PO BID #180 cap 07/17/19 03/12/20 bisacodyl 10 mg PO .q72h prn PRN #10 tab 08/19/19 03/12/20 food supplemt, lactose-reduced 414 ml PO DAILY #69372 ml 08/24/19 03/12/20 pantoprazole 40 mg tablet,delayed 40 mg PO DAILY #90 tab 08/24/19 03/12/20 release gabapentin 300 mg capsule 300 mg PO BID #90 cap 08/28/19 03/12/20 hydrochlorothiazide 12.5 mg tablet 12.5 mg PO DAILY #90 tab 08/28/19 03/12/20 metoprolol tartrate 50 mg tablet 50 mg PO BID #180 tab 08/28/19 03/12/20 sennosides 8.6 mg tablet 8.6 mg PO BID #180 tab 08/28/19 03/12/20 meclizine 25 mg tablet 25 mg PO TID PRN #30 tab 09/14/19 03/12/20 multivitamin 1 tab PO DAILY #90 tab 09/14/19 03/12/20 potassium chloride 10 mEq 10 meq PO DAILY #90 tab 09/14/19 03/12/20 tablet,extended release(part/cryst) loperamide 2 mg PO Q4H PRN #20 cap 11/03/19 03/12/20 promethazine 25 mg PO Q6H PRN #10 tab 11/03/19 03/12/20 dicyclomine 10 mg capsule 10 mg PO QID PRN #40 cap 11/06/19 03/12/20 sucralfate 1 gram tablet 1 g PO AC & HS #120 tab 11/06/19 03/12/20 potassium chloride 20 meq PO BID #10 ea 11/23/19 03/12/20 thiamine mononitrate (vit B1) 100 mg PO DAILY #10 tab 11/23/19 03/12/20 [Vitamin B-1 (mononitrate)] prochlorperazine maleate 10 mg PO TID PRN #7 tab 01/02/20 03/12/20 [Compazine] ipratropium 0.5 mg-albuterol 3 mg 3 ml IH QID PRN #90 ml 01/04/20 03/12/20 (2.5 mg base)/3 mL nebulization soln ondansetron HCl [Zofran] 4 mg PO Q8H #12 tab 02/07/20 03/12/20 Previous Rx's Medication Instructions Recorded folic acid 1 mg PO DAILY #14 tab 08/11/18 Refresh Plus 1 drp OU Q4H WHILE AWAKE #30 each 06/20/19 fluticasone propionate 1 spray NS DAILY #15.8 ml 06/20/19 venlafaxine 150 mg 150 mg PO DAILY #30 cap 06/27/19 capsule,extended release 24 hr venlafaxine 37.5 mg 37.5 mg PO DAILY #30 cap 06/27/19 capsule,extended release 24 hr amlodipine 10 mg tablet 10 mg PO DAILY #90 tab 06/28/19 magnesium oxide 400 mg PO BID #180 cap 07/17/19 bisacodyl 10 mg PO .q72h prn PRN #10 tab 08/19/19 food supplemt, lactose-reduced 414 ml PO DAILY #99303 ml 08/24/19 pantoprazole 40 mg tablet,delayed 40 mg PO DAILY #90 tab 08/24/19 release gabapentin 300 mg capsule 300 mg PO BID #90 cap 08/28/19 hydrochlorothiazide 12.5 mg tablet 12.5 mg PO DAILY #90 tab 08/28/19 metoprolol tartrate 50 mg tablet 50 mg PO BID #180 tab 08/28/19 sennosides 8.6 mg tablet 8.6 mg PO BID #180 tab 08/28/19 meclizine 25 mg tablet 25 mg PO TID PRN #30 tab 09/14/19 multivitamin 1 tab PO DAILY #90 tab 09/14/19 potassium chloride 10 mEq 10 meq PO DAILY #90 tab 09/14/19 tablet,extended release(part/cryst) loperamide 2 mg PO Q4H PRN #20 cap 11/03/19 promethazine 25 mg PO Q6H PRN #10 tab 11/03/19 dicyclomine 10 mg capsule 10 mg PO QID PRN #40 cap 11/06/19 sucralfate 1 gram tablet 1 g PO AC & HS #120 tab 11/06/19 potassium chloride 20 meq PO BID #10 ea 11/23/19 thiamine mononitrate (vit B1) 100 mg PO DAILY #10 tab 11/23/19 [Vitamin B-1 (mononitrate)] prochlorperazine maleate 10 mg PO TID PRN #7 tab 01/02/20 [Compazine] ipratropium 0.5 mg-albuterol 3 mg 3 ml IH QID PRN #90 ml 01/04/20 (2.5 mg base)/3 mL nebulization soln ondansetron HCl [Zofran] 4 mg PO Q8H #12 tab 02/07/20 Allergies Allergy/AdvReac Type Severity Reaction Status Date / Time Penicillins Allergy Mild Rash Verified 03/12/20 02:33 ramipril Allergy Unknown ITCHING Verified 03/12/20 02:33 meperidine [From Demerol] AdvReac Severe Nausea Verified 03/12/20 02:33 bupropion AdvReac Mild GI upset Verified 03/12/20 02:33 AMBER Inhibitors AdvReac Unknown COUGH Verified 03/12/20 02:33 alendronate sodium AdvReac Unknown GI Distress Verified 03/12/20 02:33 clarithromycin AdvReac Unknown intolerant Verified 03/12/20 02:33 paroxetine AdvReac Unknown Diarrhea Verified 03/12/20 02:33 General JORDAN: 3 Review of Systems All systems reviewed & are unremarkable except as noted in HPI and below [facility] Medical History Alcohol abuse (Acute) Alcoholic ketosis (Resolved) Allergic rhinitis (Chronic) Anemia (Chronic 12/20/16) Back pain, chronic (Chronic) CAP (community acquired pneumonia) (Resolved) Cataract (Chronic 11/07/15) Cervical radicular pain (Chronic) neck pain and [facility] Chronic alcoholic gastritis (Chronic 10/12/17) pls refrain from alcohol Chronic diarrhea (Acute) Contusion of left little finger (Acute) Corneal ulcer, right (Inactive ~08/23/18) 08/23/18; UV-kb Depression (Chronic) Elev transaminase/LDH (Chronic) due to alcohol Fall (Acute) Falling (Acute) Genital herpes simplex (Chronic) recurrent gential; suppressive Valtrex GERD (gastroesophageal reflux disease) (Chronic) GI bleed (Resolved 12/20/16) Headache (Resolved) Hyperlipidemia (Chronic) Hypertension (Chronic) high today; she will check readings at home 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 Multiple rib fractures (Resolved) 03/11/19 [facility] Non-cardiac chest pain (Resolved 09/21/16) [facility] [place] 09/21/16 NEGATIVE MP Osteoarthritis (Chronic) Osteopenia (Chronic) 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) Peripheral edema (Acute) Pleural effusion on left (Resolved) 03/11/19 [facility] Right rib fracture (Resolved) Sciatica (Chronic) right, epidural injuections [facility] Tendinitis of left rotator cuff (Inactive) Tubular adenoma of colon (Chronic 01/28/17) Urinary incontinence (Chronic) 01/24/13 urethral suspension and sling at [facility] [place] (bladder suspension 1991) Wernicke encephalopathy (Chronic) Surgical History Bladder Surgery suspension Colonoscopy - MAC (01/28/17) EGD - MAC (12/20/16) History of bilateral ligation of fallopian tubes (Inactive) Ligation of fallopian tube Repair bladder injury, simple Family History Mother No problems noted. Father , DROWNED at age 50. No problems noted. Sister Personal history of malignant neoplasm MELANOMA Sister No problems noted. Grandfather Personal history of malignant neoplasm STOMACH Grandfather Personal history of malignant neoplasm PROSTATE Grandmother Heart disease AL Acute ill-defined cerebrovascular disease Grandmother Personal history of malignant neoplasm UTERINE Aunt , [place] Heart disease AL Aunt , [place] Heart disease Brother No problems noted. Social History Smoking/Tobacco Use Status: Former Tobacco Use Alcohol Intake: current Alcohol Intake frequency: 3 or more drinks per day Alcohol type: hard liquor Drug use: Never Substance use type: does not use Current gender identity: female Do you feel safe at home: Yes Do you feel safe in your relationship?: Yes Additional Social history: Exam Narrative Exam Narrative: 1.Const: Well-nourished, Well-developed, appearing stated age 2.Eyes: PERRL, no conjunctival injection, and symmetrical lids. 3.ENT: Atraumatic external nose and ears. Dry MM. Neck: Symmetric, trachea midline, No thyromegaly. There is no evidence of raccoon eyes, bernard sign, CSF rhinorrhea, mastoid tenderness, cranial crepitus, hemotympanum, exophthalmos, or hyphema. Patient demonstrates intact dentition with no signs of tooth avulsion or fracture, no signs of jaw deformity, no evidence of a LeFort's fracture, with an intact palate, nose and orbital region. There is no evidence of a nasal septal hematoma. No proptosis. Jaw closes symmetrically. Airway is clear. 4.CVS: +S1/S2, No murmurs or gallops. Peripheral pulses 2+ and equal in all extremities. Brisk capillary refill in all extremities. 5.RESP: Unlabored respiratory effort. Clear to auscultation bilaterally. No wheezes rales or rhonchi 6.GI: Soft, Nontender/Nondistended, No hepatosplenomegaly. No guarding or rebound. 7.MSK: Normocephalic/Atraumatic, Extremities w/o deformity or ttp No cyanosis or clubbing, Normal movement of all extremities 8.Skin: Warm, Dry. No rashes or lesions. 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 Sensation grossly intact, no focal neurologic deficits. 10.Psych: (AAO) x3. Moderately intoxicated, GCS is 14
[2020-03-12] MEDS: Normal Saline 1,000 ML 1000 ML IV (02:20)
[2020-03-12 02:35] LABS: BE (Venous) 2.9 mmol/L (-3-3); HCO3 (Venous) 27 mmol/L (22-28); O2 Sat (Venous) 46 % (70-80); TCO2 (Venous) 26 mmol/L (22-29); pCO2 (Venous) 42 mm/Hg (34-47); pH (Venous) 7.42 (7.35-7.45); pO2 (Venous) 31 mm/Hg (28-44)
[2020-03-12 02:36] LABS: Mean Corp. HGB Concentration 31.3 g/dL (32.0-36.0); Mean Corpuscular Hemoglobin 27.2 pg (27.0-33.0); Mean Corpuscular Volume 87.2 fL (80-95); Mean Platelet Volume 8.3 fL (8.0-11.0); Platelet Count 254 x1000/uL (130-400); RBC 3.67 m/cumm (4.00-5.20); White Blood Cell Count 2.49 k/cumm (4.4-10.8)
[2020-03-12 02:47] LABS: Ammonia 12 umol/L (11-32)
[2020-03-12 02:50] LABS: Salicylate < 2.8 mg/dL (2.8-20.0)
[2020-03-12 02:53] LABS: Absolute Lymphocyte Count 1.49 k/cumm (1.2-3.4); Absolute Monocyte Count 0.15 k/cumm (0.11-0.7); Absolute Neutrophil Count 0.85 k/cumm (1.2-6.7); Anisocytosis 1+; Basophilic Stippling 1+; Diff Comment Manual Differential; Hypochromasia 1+; Microcytosis 1+; Polychromasia Present
[2020-03-12 02:55] LABS: Acetaminophen < 2 ug/mL (10-30)
[2020-03-12 02:57] LABS: ALT 59 U/L (14-59); AST 94 U/L (15-37); Albumin 3.4 g/dL (3.4-5.0); Alkaline Phosphatase 119 U/L (46-116); Anion Gap 14.7 mmol/L (3-11); BUN 9 mg/dL (7-18); CO2 26.3 mmol/L (21.0-32.0); CREATININE 0.82 mg/dL (0.55-1.02); Calcium 9.2 mg/dL (8.5-10.1); Chloride 101 mmol/L (98-107); ETHANOL BLOOD 330.9 mg/dL (<3); Glucose 91 mg/dL (74-106); Lipase 55 U/L (73-393); Potassium 3.1 mmol/L (3.5-5.1); Sodium 142 mmol/L (136-145); Total Protein 6.7 g/dL (6.4-8.2)
[2020-03-12 02:59] LABS: TSH (W/Ref FT4) 0.14 uIU/mL (0.36-3.74)
[2020-03-12] MEDS: Potassium Chloride 20 MEQ TABCR 40 MEQ PO (03:23)
[2020-03-12] MEDS: POTASSIUM CHLORIDE 10 MEQ/100 ML BAG 100 MEQ IVPB (03:23)
[2020-03-12 03:30] LABS: FREE T4 0.98 ng/dL (0.76-1.46); Magnesium 1.7 mg/dL (1.8-2.4)
[2020-03-12] MEDS: MAGNESIUM SULFATE 1 GM/100 ML BAG IVPB (04:32)
== END 2020-03-12 06:55 | disposition home or self-care (01) ==
PROVIDERS: Emergency Provider Student in an Organized Health Care Education/Training Program; PCP Family Medicine
DX: F10.129 Alcohol abuse with intoxication, unspecified (principal); R79.89 Other specified abnormal findings of blood chemistry; Y90.8 Blood alcohol level of 240 mg/100 ml or more; R40.2412 Glasgow coma scale score 13-15, at arrival to emergency department; I10 Essential (primary) hypertension
CPT/HCPCS: 80053; 82805; 83690; 96361; 96365; 96366; 96368; 99285; 36600; 80320; 80329; 82140; 83735; 84439; 84443; 85025; 99284; J3475; J3480

== ENCOUNTER 2020-03-27 11:56 | Observation (INO) | payer OTHER, SELFPAY ==
[2020-03-27] VITALS (28 sets, daily range): BP systolic 120–153; BP diastolic 56–81; PULSE 87–95; RESP 13–21; TEMP 36.3–37; O2SAT 90–100
--- NOTE | 2020-03-27 11:45 | RT.EKG_ITS ---
APPROVED REPORT Exam: Resting ECG Patient Location: E HR:91 bpm ECG Measurements Heart Rate 91 AXIS MO 203 P 47 QRSd 103 QRS -29 QT 421 T 5 QTc 520 <Conclusion> Sinus rhythm...normal P axis, V-rate 91 Probable left ventricular hypertrophy...multiple LVH criteria Inferior infarct, old...Q >35mS, II III aVF Prolonged QT interval...QTc >500mS
--- NOTE | 2020-03-27 12:15 | W.ED.GENAD ---
Discharge Plan Disposition Patient Disposition: [facility] INPATIENT Condition: Stable Discharge Details Chief Complaint: ETOHWithdr Clinical Impression: Acute hypokalemia, Alcohol abuse Primary Care Provider: Lavelle Galindo ED Provider: Moose Lafleur Home Meds and New Rx's Prescriptions: No Action meclizine 25 mg tablet 25 mg PO TID PRN (Reason: dizziness) Qty: 30 RF: 1 venlafaxine 37.5 mg capsule,extended release 24hr 37.5 mg PO DAILY Qty: 30 RF: 11 venlafaxine 150 mg capsule,extended release 24hr 150 mg PO DAILY Qty: 30 RF: 11 hydrochlorothiazide 12.5 mg tablet 12.5 mg PO DAILY Qty: 90 RF: 3 gabapentin 300 mg capsule 300 mg PO BID Qty: 90 RF: 5 metoprolol tartrate 50 mg tablet 50 mg PO BID Qty: 180 RF: 3 sennosides [Senokot] 8.6 mg tablet 8.6 mg PO BID Qty: 180 RF: 3 magnesium oxide 400 mg magnesium capsule 400 mg PO BID Qty: 180 RF: 3 amlodipine 10 mg tablet 10 mg PO DAILY Qty: 90 RF: 3 pantoprazole 40 mg tablet,delayed release (DR/EC) 40 mg PO DAILY Qty: 90 RF: 3 Ensure Active High Protein Liquid 414 ml PO DAILY Qty: 04049 RF: 11 multivitamin [Multiple Vitamins] Tablet 1 tab PO DAILY Qty: 90 RF: 3 potassium chloride [Klor-Con M10] 10 mEq tablet,ER particles/crystals 10 meq PO DAILY Qty: 90 RF: 3 dicyclomine 10 mg capsule 10 mg PO QID PRN (Reason: belly pain) Qty: 40 RF: 0 sucralfate 1 gram tablet 1 g PO AC & HS Qty: 120 RF: 5 ipratropium-albuterol 0.5 mg-3 mg(2.5 mg base)/3 mL solution for nebulization 3 ml IH QID PRN (Reason: shortness of breath) Qty: 90 RF: 3 fluticasone propionate 50 mcg/actuation spray,suspension 1 spray NS daily prn Qty: 9.9 RF: 2 folic acid 1 mg Tablet 1 mg PO DAILY Qty: 14 RF: 0 Refresh Plus 0.5 % Dropperette 1 drp OU Q4H WHILE AWAKE Qty: 30 RF: 0 fluticasone propionate 50 mcg/actuation [place],Suspension 1 spray NS DAILY Qty: 15.8 RF: 0 bisacodyl 5 mg Tablet,Delayed Release (Dr/Ec) 10 mg PO .q72h prn PRN (Reason: constipation - if no BM In 3 days) Qty: 10 RF: 0 promethazine 25 mg tablet 25 mg PO Q6H PRN (Reason: nausea and vomiting) Qty: 10 RF: 0 loperamide 2 mg capsule 2 mg PO Q4H PRN (Reason: loose stool) Qty: 20 RF: 0 potassium chloride 20 mEq Packet 20 meq PO BID Qty: 10 RF: 0 thiamine mononitrate (vit B1) [Vitamin B-1 (mononitrate)] 100 mg Tablet 100 mg PO DAILY Qty: 10 RF: 0 ondansetron HCl [Zofran] 4 mg tablet 4 mg PO Q8H Qty: 12 RF: 0 prochlorperazine maleate [Compazine] 10 mg tablet 10 mg PO TID PRN (Reason: nausea and vomiting) Qty: 7 RF: 0 Medical Decision Making 74-year-old female presents via EMS. She called them for a lift assist after slumping to the ground and being unable to get up. Once there she stated she felt weak, nauseated, felt like she was going into alcohol withdrawal as her last drink was yesterday. She denies any loss of consciousness or injuring herself, but does complain of mild left headache. She arrives to the ER with blood pressure 141/71, pulse 91, afebrile at 36.7 with normal oxygenation. She is somewhat irascible and irritated on exam but it is primarily notable for mild diffuse abdominal tenderness. IV placed, patient given antiemetics and fluids. Is referred for laboratory testing. Discussed with her CT scan of the head which she refuses. She is appropriate but irritated on my examination, no other injuries appreciated. Laboratories: CBC noticeably change versus baseline. Her white blood cell count is 3.7, hematocrit 30.5, platelets 270. Chemistries note potassium 2.2. Sodium is 143, chloride 109, bicarb 20, BUN 9, creatinine 0.6. Glucose 137. LFTs within normal limits. Lipase 79. Alcohol level 258. Magnesium is low as well and being supplemented. Given the severity of her hypokalemia and hypomagnesemia I do not feel she can safely be supplemented in the ED and will discuss admission. HPI General Mode of arrival: EMS. Date/Time Provider Initiated Documentation: 03/27/20 13:05. Limitations to Documentation: no limitations. Information obtained by: patient and EMS. History of Present Illness 74 year old F presents to the emergency department with the chief complaint of Fall at home, weakness, described as moderate, Quality is described as dull and constant, Patient reports no radiation. Patient started experiencing this hour(s) No relieving factors improve symptom(s), No exacerbating factors reported . Patient notes loss of appetite, malaise and weakness; denies chest pain and syncope. Patient did receive the following treatments prior to arrival, none Related Data Home Medications Medication Instructions Recorded Confirmed folic acid 1 mg PO DAILY #14 tab 08/11/18 03/27/20 Refresh Plus 1 drp OU Q4H WHILE AWAKE #30 each 06/20/19 03/27/20 fluticasone propionate 1 spray NS DAILY #15.8 ml 06/20/19 03/27/20 venlafaxine 150 mg 150 mg PO DAILY #30 cap 06/27/19 03/27/20 capsule,extended release 24 hr venlafaxine 37.5 mg 37.5 mg PO DAILY #30 cap 06/27/19 03/27/20 capsule,extended release 24 hr amlodipine 10 mg tablet 10 mg PO DAILY #90 tab 06/28/19 03/27/20 magnesium oxide 400 mg PO BID #180 cap 07/17/19 03/27/20 bisacodyl 10 mg PO .q72h prn PRN #10 tab 08/19/19 03/27/20 food supplemt, lactose-reduced 414 ml PO DAILY #73374 ml 08/24/19 03/27/20 pantoprazole 40 mg tablet,delayed 40 mg PO DAILY #90 tab 08/24/19 03/27/20 release gabapentin 300 mg capsule 300 mg PO BID #90 cap 08/28/19 03/27/20 hydrochlorothiazide 12.5 mg tablet 12.5 mg PO DAILY #90 tab 08/28/19 03/27/20 metoprolol tartrate 50 mg tablet 50 mg PO BID #180 tab 08/28/19 03/27/20 sennosides 8.6 mg tablet 8.6 mg PO BID #180 tab 08/28/19 03/27/20 meclizine 25 mg tablet 25 mg PO TID PRN #30 tab 09/14/19 03/27/20 multivitamin 1 tab PO DAILY #90 tab 09/14/19 03/27/20 potassium chloride 10 mEq 10 meq PO DAILY #90 tab 09/14/19 03/27/20 tablet,extended release(part/cryst) loperamide 2 mg PO Q4H PRN #20 cap 11/03/19 03/27/20 promethazine 25 mg PO Q6H PRN #10 tab 11/03/19 03/27/20 dicyclomine 10 mg capsule 10 mg PO QID PRN #40 cap 11/06/19 03/27/20 sucralfate 1 gram tablet 1 g PO AC & HS #120 tab 11/06/19 03/27/20 potassium chloride 20 meq PO BID #10 ea 11/23/19 03/27/20 thiamine mononitrate (vit B1) 100 mg PO DAILY #10 tab 11/23/19 03/27/20 [Vitamin B-1 (mononitrate)] prochlorperazine maleate 10 mg PO TID PRN #7 tab 01/02/20 03/27/20 [Compazine] ipratropium 0.5 mg-albuterol 3 mg 3 ml IH QID PRN #90 ml 01/04/20 03/27/20 (2.5 mg base)/3 mL nebulization soln ondansetron HCl [Zofran] 4 mg PO Q8H #12 tab 02/07/20 03/27/20 fluticasone propionate 50 1 spray NS daily prn #9.9 ml 03/25/20 03/27/20 mcg/actuation nasal spray,suspension Previous Rx's Medication Instructions Recorded folic acid 1 mg PO DAILY #14 tab 08/11/18 Refresh Plus 1 drp OU Q4H WHILE AWAKE #30 each 06/20/19 fluticasone propionate 1 spray NS DAILY #15.8 ml 06/20/19 venlafaxine 150 mg 150 mg PO DAILY #30 cap 06/27/19 capsule,extended release 24 hr venlafaxine 37.5 mg 37.5 mg PO DAILY #30 cap 06/27/19 capsule,extended release 24 hr amlodipine 10 mg tablet 10 mg PO DAILY #90 tab 06/28/19 magnesium oxide 400 mg PO BID #180 cap 07/17/19 bisacodyl 10 mg PO .q72h prn PRN #10 tab 08/19/19 food supplemt, lactose-reduced 414 ml PO DAILY #80999 ml 08/24/19 pantoprazole 40 mg tablet,delayed 40 mg PO DAILY #90 tab 08/24/19 release gabapentin 300 mg capsule 300 mg PO BID #90 cap 08/28/19 hydrochlorothiazide 12.5 mg tablet 12.5 mg PO DAILY #90 tab 08/28/19 metoprolol tartrate 50 mg tablet 50 mg PO BID #180 tab 08/28/19 sennosides 8.6 mg tablet 8.6 mg PO BID #180 tab 08/28/19 meclizine 25 mg tablet 25 mg PO TID PRN #30 tab 09/14/19 multivitamin 1 tab PO DAILY #90 tab 09/14/19 potassium chloride 10 mEq 10 meq PO DAILY #90 tab 09/14/19 tablet,extended release(part/cryst) loperamide 2 mg PO Q4H PRN #20 cap 11/03/19 promethazine 25 mg PO Q6H PRN #10 tab 11/03/19 dicyclomine 10 mg capsule 10 mg PO QID PRN #40 cap 11/06/19 sucralfate 1 gram tablet 1 g PO AC & HS #120 tab 11/06/19 potassium chloride 20 meq PO BID #10 ea 11/23/19 thiamine mononitrate (vit B1) 100 mg PO DAILY #10 tab 11/23/19 [Vitamin B-1 (mononitrate)] prochlorperazine maleate 10 mg PO TID PRN #7 tab 01/02/20 [Compazine] ipratropium 0.5 mg-albuterol 3 mg 3 ml IH QID PRN #90 ml 01/04/20 (2.5 mg base)/3 mL nebulization soln ondansetron HCl [Zofran] 4 mg PO Q8H #12 tab 02/07/20 fluticasone propionate 50 1 spray NS daily prn #9.9 ml 03/25/20 mcg/actuation nasal spray,suspension Allergies Allergy/AdvReac Type Severity Reaction Status Date / Time Penicillins Allergy Mild Rash Verified 03/27/20 12:07 ramipril Allergy Unknown ITCHING Verified 03/27/20 12:07 meperidine [From Demerol] AdvReac Severe Nausea Verified 03/27/20 12:07 bupropion AdvReac Mild GI upset Verified 03/27/20 12:07 AMBER Inhibitors AdvReac Unknown COUGH Verified 03/27/20 12:07 alendronate sodium AdvReac Unknown GI Distress Verified 03/27/20 12:07 clarithromycin AdvReac Unknown intolerant Verified 03/27/20 12:07 paroxetine AdvReac Unknown Diarrhea Verified 03/27/20 12:07 General Stated Complaint: ETOHWithdr JORDAN: 3 Review of Systems Narrative: Last alcohol intake yesterday, nauseated, states she was weak and slumped to the ground with out significant injury but complains of mild headache. She called EMS for lift assist. 8 systems reviewed and otherwise negative. [facility] Medical History Alcohol abuse (Acute) Alcoholic ketosis (Resolved) Allergic rhinitis (Chronic) Anemia (Chronic 12/20/16) Back pain, chronic (Chronic) CAP (community acquired pneumonia) (Resolved) Cataract (Chronic 11/07/15) Cervical radicular pain (Chronic) neck pain and [facility] Chronic alcoholic gastritis (Chronic 10/12/17) pls refrain from alcohol Chronic diarrhea (Acute) Contusion of left little finger (Acute) Corneal ulcer, right (Inactive ~08/23/18) 08/23/18; [facility] Depression (Chronic) Elev transaminase/LDH (Chronic) due to alcohol Fall (Acute) Falling (Acute) Genital herpes simplex (Chronic) recurrent gential; suppressive Valtrex GERD (gastroesophageal reflux disease) (Chronic) GI bleed (Resolved 12/20/16) Headache (Resolved) Hyperlipidemia (Chronic) Hypertension (Chronic) high today; she will check readings at home 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 Multiple rib fractures (Resolved) 03/11/19 [facility] Non-cardiac chest pain (Resolved 09/21/16) [facility] [place] NEGATIVE MP Osteoarthritis (Chronic) Osteopenia (Chronic) 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) Peripheral edema (Acute) Pleural effusion on left (Resolved) 03/11/19 [facility] Right rib fracture (Resolved) Sciatica (Chronic) right, epidural injuections [facility] Tendinitis of left rotator cuff (Inactive) Tubular adenoma of colon (Chronic 01/28/17) Urinary incontinence (Chronic) 01/24/13 urethral suspension and [place]ing [place] [facility] [place] Wernicke encephalopathy (Chronic) Social History Smoking/Tobacco Use Status: Former Tobacco Use Alcohol Intake: current Alcohol Intake frequency: 3 or more drinks per day Alcohol type: hard liquor Drug use: Never Substance use type: does not use Current gender identity: female Do you feel safe at home: Yes Do you feel safe in your relationship?: Yes Additional Social history: Exam Narrative Exam Narrative: GEN: awake, alert, oriented 3. Interactive and conversant. States leave me alone.. HEAD: Normocephalic, atraumatic Neck: No midline step-off tenderness or deformity ENT: Mucous membranes moist, oropharynx unremarkable, External ear exam unremarkable EYES: PERRL, EOMI CHEST/RESP: Nontender, clear to auscultation bilateral, no wheeze/rhonchi/rales CARDIOVASCULAR: RRR, no murmur, rub shirin. 2+ Rad pulse bilateral ABDOMEN: Soft, mild diffuse tenderness without rebound or guarding, no mass. +Bowel sounds EXT: Full ROM, no edema, no rash Neuro: Grossly normal neurologic exam, conversant, interactive. Psych: Speech fluent, thoughts congruent, affect flat Course Vital Signs Vital signs: Vital Signs Temperature 36.7 C 03/27/20 12:02 Pulse 91 H 03/27/20 12:02 Respiratory Rate 16 03/27/20 12:02 Blood Pressure 141/71 H 03/27/20 12:02 Pulse Oximetry 98 03/27/20 12:02 Temperature 36.7 C 03/27/20 12:02 Temperature Source Skin 03/27/20 12:02 Pulse 91 H 03/27/20 12:02 Respiratory Rate 16 03/27/20 12:02 Respiratory Effort Non-Labored 03/27/20 12:02 Blood Pressure 141/71 H 03/27/20 12:02 Blood Pressure Position Supine 03/27/20 12:02 Pulse Oximetry 98 03/27/20 12:02 Oxygen Delivery Method Room Air 03/27/20 12:02 Oxygen Flow Rate 0 03/27/20 12:02 Pain Level 2 03/27/20 12:02
[2020-03-27] MEDS: Normal Saline 1,000 ML 1000 ML IV (12:45)
[2020-03-27 12:55] LABS: Abs Immature Grans 0.01 10^3/uL (0.0-0.06); Absolute Basophil Count 0.02 10^3/uL (0.0-0.2); Absolute Lymphocyte Count 0.96 10^3/uL (1.2-3.4); Absolute Monocyte Count 0.23 10^3/uL (0.1-0.8); Basophils % 0.5; HCT 30.5 % (36.0-46.0); HGB 9.5 g/dL (11.2-15.7); Immature Grans % 0.3; Lymphocytes % 25.8; MCH 28.7 pg (27.0-33.0); MCHC 31.1 % (32.0-36.0); MCV 92.1 fL (80-95); Monocytes % 6.2; Neutrophils % 67.2; Platelet Count 270 10^3/uL (130-400); RBC 3.31 10^6/uL (3.93-5.22); WBC 3.72 10^3/uL (4.4-10.8)
[2020-03-27] MEDS: Ondansetron 4 MG/2 ML VIAL IVP (12:56)
[2020-03-27] MEDS: LORazepam 2 MG/ML VIAL 0.5 MG IVP (12:58)
[2020-03-27 13:14] LABS: Lipase 79 U/L (73-393)
[2020-03-27 13:19] LABS: ALT 38 U/L (14-59); AST 33 U/L (15-37); Albumin 2.4 g/dL (3.4-5.0); Alkaline Phosphatase 83 U/L (46-116); Anion Gap 13.1 mmol/L (3-11); BUN 9 mg/dL (7-18); Bilirubin, Total 0.3 mg/dL (0.2-1.0); CO2 20.9 mmol/L (21.0-32.0); Calcium 7.2 mg/dL (8.5-10.1); Chloride 109 mmol/L (98-107); ETHANOL BLOOD 258.6 mg/dL (<3); Glucose 137 mg/dL (74-106); Sodium 143 mmol/L (136-145); Total Protein 5.2 g/dL (6.4-8.2)
[2020-03-27 13:20] LABS: Potassium 2.2 mmol/L (3.5-5.1)
[2020-03-27 13:37] LABS: Magnesium 1.2 mg/dL (1.8-2.4)
[2020-03-27] MEDS: Normal Saline 1,000 ML 125 ML IV (13:50)
[2020-03-27] MEDS: POTASSIUM CHLORIDE 20 MEQ/100 ML BAG 50 MEQ IVPB ×3 (13:50→21:38)
[2020-03-27] MEDS: MAGNESIUM SULFATE 2 GM/50 ML BAG IVPB ×2 (13:53→17:21)
--- NOTE | 2020-03-27 16:23 | W.PM.HP.N ---
Date of service: 03/27/20 Time of Service: 16:23 Assessment and Plan Assessment and plan (1) Acute hypokalemia: Status: Acute Assessment and plan: We will give both IV and oral potassium replacement and correct her hypomagnesemia at the same time. She is probably going need between 120 to 200 mEq of potassium to correct her hypokalemia given the degree of hypokalemia (2) Alcohol abuse: Status: Chronic Assessment and plan: Patient presented acutely intoxicated with a blood alcohol 258. Patient has a history of alcohol withdrawal however we have proven on multiple occasions that she does not routinely go into active withdrawal. However she will often exhibit symptoms suspicious for withdrawal such as palpitations and tremors and nausea. These are related to her alcoholic gastritis and her withdrawal from her beta-blockers. Unfortunately she has been unable to maintain any abstinence even after is been in the hospital for prolonged period free from alcohol. She is also been resistant to any long-term halfway facility placement. Nevertheless she will be monitored with frequent vital signs and CIWA protocol scoring with appropriate treatment with any signs of acute alcohol withdrawal (3) Chronic alcoholic gastritis: Status: Chronic Assessment and plan: Resume her Carafate and Protonix Qualifiers: Gastritis bleeding: without bleeding Qualified Code(s): K29.20 - Alcoholic gastritis without bleeding (4) GERD (gastroesophageal reflux disease): Status: Chronic Assessment and plan: As above Qualifiers: Esophagitis presence: with esophagitis Qualified Code(s): K21.0 - Gastro-esophageal reflux disease with esophagitis (5) Hypertension: Status: Chronic Assessment and plan: Resume amlodipine and metoprolol tartrate Qualifiers: Hypertension type: essential hypertension Qualified Code(s): I10 - Essential (primary) hypertension (6) Hypomagnesemia: Status: Resolved Assessment and plan: Replace with parenteral and oral magnesium and recheck labs in the morning History of Present Illness History of Present Illness Chief Complaint: Nausea and vomiting Narrative: 74-year-old female alcoholic with a history of frequent admissions to this hospital for alcoholic gastritis and alcohol withdrawal. She has a history of essential hypertension, GERD, chronic back pain, depression who allegedly had quit drinking for two weeks but recently resumed her drinking. Allegedly her last drink was yesterday and she reports that she only drank 3 ounces yet she presented with a blood alcohol level of 258. She called EMS today for assist after she slumped to the ground was unable to get back up. She said she was nausea and felt weak and felt like she was going through alcohol withdrawal. She denies a loss of consciousness or any injury to herself but complained of a mild left-sided headache. On arrival to emergency department her vital signs were stable with a blood pressure 141/71 and a pulse of 91 and she was afebrile with normal oxygenation. Patient complained of diffuse abdominal tenderness and was nauseated and was given antiemetics and IV fluids. Laboratory studies were remarkable for a low magnesium of 1.2 and a potassium level of 2.2 with a normal BUN of 9 and creatinine 0.6. Her anion gap was slightly elevated at 13.1 with a carbon dioxide of 20.9. Glucose was elevated 137. AST ALT alkaline phosphatase all within normal limits. Lipase was normal at 79. CBC was remarkable for chronic stable anemia with a hemoglobin 9.5 g hematocrit 30% with a normal platelet count 270,000 and a white cell count 3700. She was treated emergency department with antiemetics and IV fluids and was given a potassium bolus of 20 mEq IV along with oral potassium chloride 20 mEq. She was given a dose of Lorazepam 0.5 mg IV and given a bolus of magnesium sulfate 2 g IV. Because of the severity of her electrolyte abnormalities and because of her protracted nausea and vomiting it was felt that she needed to be hospitalized and stabilized with IV fluids and replacement of her electrolytes. She has had multiple hospitalizations with similar presentations. Although it is doubtful that she is going through acute alcohol withdrawal given her elevated blood alcohol level she will be monitor with [facility] protocol overnight and treated appropriately. We have shown on multiple occasions in the past that a lot of her symptoms are related to withdrawal of her medications including her beta-blockers and her amlodipine and her gabapentin and also with not taking her Protonix and Carafate. Review of Systems All systems reviewed & are unremarkable except as noted in HPI and below Gastrointestinal Gastrointestinal: Reports abdominal pain, Denies melena, Denies coffee ground emesis, Reports diarrhea, Reports nausea, Reports vomiting and Denies hematemesis [facility] Medical History Alcohol abuse (Acute) Alcoholic ketosis (Resolved) Allergic rhinitis (Chronic) Anemia (Chronic 12/20/16) Back pain, chronic (Chronic) CAP (community acquired pneumonia) (Resolved) Cataract (Chronic 11/07/15) Cervical radicular pain (Chronic) neck pain and DJD [facility] Chronic alcoholic gastritis (Chronic 10/12/17) pls refrain from alcohol Chronic diarrhea (Acute) Contusion of left little finger (Acute) Corneal ulcer, right (Inactive ~08/23/18) 08/23/18; UV-kb Depression (Chronic) Elev transaminase/LDH (Chronic) due to alcohol Fall (Acute) Falling (Acute) Genital herpes simplex (Chronic) recurrent gential; suppressive Valtrex GERD (gastroesophageal reflux disease) (Chronic) GI bleed (Resolved 12/20/16) Headache (Resolved) Hyperlipidemia (Chronic) Hypertension (Chronic) high today; she will check readings at home 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 Multiple rib fractures (Resolved) 03/11/19 [facility] Non-cardiac chest pain (Resolved 09/21/16) [facility] 09/21/16 NEGATIVE MP Osteoarthritis (Chronic) Osteopenia (Chronic) 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) Peripheral edema (Acute) Pleural effusion on left (Resolved) 03/11/19 [facility] Right rib fracture (Resolved) Sciatica (Chronic) right, epidural injuections [facility] Tendinitis of left rotator cuff (Inactive) Tubular adenoma of colon (Chronic 01/28/17) Urinary incontinence (Chronic) 01/24/13 urethral suspension and sling at [facility] (bladder suspension 1991) Wernicke encephalopathy (Chronic) Surgical History Bladder Surgery suspension Colonoscopy - MAC (01/28/17) EGD - MAC (12/20/16) History of bilateral ligation of fallopian tubes (Inactive) Ligation of fallopian tube Repair bladder injury, simple Family History Mother No problems noted. Father , DROWNED at age 50. No problems noted. Sister Personal history of malignant neoplasm MELANOMA Sister No problems noted. Grandfather Personal history of malignant neoplasm STOMACH Grandfather Personal history of malignant neoplasm PROSTATE Grandmother Heart disease PR Acute ill-defined cerebrovascular disease Grandmother Personal history of malignant neoplasm UTERINE Aunt , PR Heart disease PR Aunt , PR Heart disease Brother No problems noted. Social History Smoking/Tobacco Use Status: Former Tobacco Use Alcohol Intake: current Alcohol Intake frequency: 3 or more drinks per day Alcohol type: hard liquor Drug use: Never Substance use type: does not use Current gender identity: female Do you feel safe at home: Yes Do you feel safe in your relationship?: Yes Additional Social history: Meds Home Medications and Allergies Home Medications Medication Instructions Recorded Confirmed Type folic acid 1 mg PO DAILY #14 tab 08/11/18 03/27/20 Rx Refresh Plus 1 drp OU Q4H WHILE AWAKE #30 each 06/20/19 03/27/20 Rx fluticasone propionate 1 spray NS DAILY #15.8 ml 06/20/19 03/27/20 Rx venlafaxine 150 mg 150 mg PO DAILY #30 cap 06/27/19 03/27/20 Rx capsule,extended release 24 hr venlafaxine 37.5 mg 37.5 mg PO DAILY #30 cap 06/27/19 03/27/20 Rx capsule,extended release 24 hr amlodipine 10 mg tablet 10 mg PO DAILY #90 tab 06/28/19 03/27/20 Rx magnesium oxide 400 mg PO BID #180 cap 07/17/19 03/27/20 Rx bisacodyl 10 mg PO .q72h prn PRN #10 tab 08/19/19 03/27/20 Rx food supplemt, lactose-reduced 414 ml PO DAILY #67714 ml 08/24/19 03/27/20 Rx pantoprazole 40 mg tablet,delayed 40 mg PO DAILY #90 tab 08/24/19 03/27/20 Rx release gabapentin 300 mg capsule 300 mg PO BID #90 cap 08/28/19 03/27/20 Rx hydrochlorothiazide 12.5 mg tablet 12.5 mg PO DAILY #90 tab 08/28/19 03/27/20 Rx metoprolol tartrate 50 mg tablet 50 mg PO BID #180 tab 08/28/19 03/27/20 Rx sennosides 8.6 mg tablet 8.6 mg PO BID #180 tab 08/28/19 03/27/20 Rx meclizine 25 mg tablet 25 mg PO TID PRN #30 tab 09/14/19 03/27/20 Rx multivitamin 1 tab PO DAILY #90 tab 01/17/20 07/30/20 Rx potassium chloride 10 mEq 10 meq PO DAILY #90 tab 09/14/19 03/27/20 Rx tablet,extended release(part/cryst) loperamide 2 mg PO Q4H PRN #20 cap 11/03/19 03/27/20 Rx promethazine 25 mg PO Q6H PRN #10 tab 11/03/19 03/27/20 Rx dicyclomine 10 mg capsule 10 mg PO QID PRN #40 cap 11/06/19 03/27/20 Rx sucralfate 1 gram tablet 1 g PO AC & HS #120 tab 11/06/19 03/27/20 Rx potassium chloride 20 meq PO BID #10 ea 11/23/19 03/27/20 Rx thiamine mononitrate (vit B1) 100 mg PO DAILY #10 tab 11/23/19 03/27/20 Rx [Vitamin B-1 (mononitrate)] prochlorperazine maleate 10 mg PO TID PRN #7 tab 01/02/20 03/27/20 Rx [Compazine] ipratropium 0.5 mg-albuterol 3 mg 3 ml IH QID PRN #90 ml 01/04/20 03/27/20 Rx (2.5 mg base)/3 mL nebulization soln ondansetron HCl [Zofran] 4 mg PO Q8H #12 tab 02/07/20 03/27/20 Rx fluticasone propionate 50 1 spray NS daily prn #9.9 ml 03/25/20 03/27/20 Rx mcg/actuation nasal spray,suspension Allergies Allergy/AdvReac Type Severity Reaction Status Date / Time Penicillins Allergy Mild Rash Verified 03/27/20 12:07 ramipril Allergy Unknown ITCHING Verified 03/27/20 12:07 meperidine [From Demerol] AdvReac Severe Nausea Verified 03/27/20 12:07 bupropion AdvReac Mild GI upset Verified 03/27/20 12:07 AMBER Inhibitors AdvReac Unknown COUGH Verified 03/27/20 12:07 alendronate sodium AdvReac Unknown GI Distress Verified 03/27/20 12:07 clarithromycin AdvReac Unknown intolerant Verified 03/27/20 12:07 paroxetine AdvReac Unknown Diarrhea Verified 03/27/20 12:07 Exam Narrative Exam Narrative: Elderly female who sitting up in bed trying to sip some monica paradise became nauseated and coughed while trying to drink monica paradise. The nurse quickly took away the monica paradise and I sat the patient bolt upright in bed at 90 degrees and she cleared her throat. Neck is supple nontender no JVD Lungs with prolonged expiratory phase but no rhonchi or wheezes. Heart is regular Abdomen soft with mild epigastric tenderness no guarding no palpable masses Extremities without peripheral cyanosis or edema Results Labs Result diagrams: 03/27/20 12:42 03/27/20 12:42 Labs: Laboratory Results - last 24 hr 03/27/20 03/27/20 03/27/20 12:42 12:42 12:42 WBC 3.72 L RBC 3.31 L Hgb 9.5 L Hct 30.5 L MCV 92.1 MCH 28.7 MCHC 31.1 L RDW 20.0 H Plt Count 270 MPV 9.0 Immature Gran % 0.3 Neutrophils % 67.2 Lymphocytes % 25.8 Monocytes % 6.2 Eosinophils % 0.0 Basophils % 0.5 Absolute Neutrophils 2.50 Absolute Lymphocytes 0.96 L Absolute Monocytes 0.23 Absolute Eosinophils 0.00 Absolute Basophils 0.02 Sodium 143 Potassium 2.2 L* Chloride 109 H Carbon Dioxide 20.9 L Anion Gap 13.1 H BUN 9 Creatinine 0.60 Estimated GFR/1.73 m2 >= 60.00 Glucose 137 H Calcium 7.2 L Magnesium Total Bilirubin 0.3 AST 33 ALT 38 Alkaline Phosphatase 83 Total Protein 5.2 L Albumin 2.4 L Lipase 79 Ethyl Alcohol 258.6 03/27/20 12:42 WBC RBC Hgb Hct MCV MCH MCHC RDW Plt Count MPV Immature Gran % Neutrophils % Lymphocytes % Monocytes % Eosinophils % Basophils % Absolute Neutrophils Absolute Lymphocytes Absolute Monocytes Absolute Eosinophils Absolute Basophils Sodium Potassium Chloride Carbon Dioxide Anion Gap BUN Creatinine Estimated GFR/1.73 m2 Glucose Calcium Magnesium 1.2 L Total Bilirubin AST ALT Alkaline Phosphatase Total Protein Albumin Lipase Ethyl Alcohol Last Vital Signs Temp 36.6 C 03/27/20 16:00 Pulse 87 03/27/20 16:00 Resp 20 03/27/20 16:00 BP 142/81 H 03/27/20 16:00 Pulse Ox 98 03/27/20 16:00 COVID-19 Screening Have you,or household,traveled outside [place] in last 14 days?: No Had IN PERSON contact w/suspected or confirmed C-19 person: No
[2020-03-27] MEDS: Sucralfate 1 GM TAB PO ×2 (16:24→21:15)
[2020-03-27] MEDS: Potassium Chloride Liquid 20 MEQ PKT 40 MEQ PO (16:24)
[2020-03-27] MEDS: Refresh PLUS Eye Drops 0.4ml OU ×2 (17:30→21:15)
--- NOTE | 2020-03-27 18:46 | NUR.NOTE ---
Nursing Note: pt had difficulty clearing her throat after sipping on a cup of warm tea at 1630. HOB was elevated and pt was able to clear throat. Another episode happened at 1730 and pt again had difficulty clearing her throat after sipping on her warm tea. Neither time was food involved.
[2020-03-27] MEDS: Pantoprazole 40 MG TABCR PO (20:32)
[2020-03-27] MEDS: Magnesium Oxide 400 MG TAB PO (20:32)
[2020-03-27] MEDS: Gabapentin 300 MG CAP PO (20:33)
[2020-03-27] MEDS: Metoprolol 50 MG TAB PO (20:34)
[2020-03-27] MEDS: Potassium Chloride Liquid 20 MEQ PKT PO (20:36)
[2020-03-27 22:19] LABS: Potassium 4.5 mmol/L (3.5-5.1)
[2020-03-28] MEDS: LORazepam 1 MG TAB PO/SL ×3 (00:02→09:10)
[2020-03-28] MEDS: Refresh PLUS Eye Drops 0.4ml OU (01:15)
[2020-03-28 03:26] VITALS: BP 151/83; PULSE 80; RESP 18; TEMP 36.5; O2SAT 99
[2020-03-28 07:08] LABS: Anion Gap 6.3 mmol/L (3-11); BUN 8 mg/dL (7-18); CO2 24.7 mmol/L (21.0-32.0); CREATININE 0.81 mg/dL (0.55-1.02); Calcium 8.4 mg/dL (8.5-10.1); Chloride 106 mmol/L (98-107); Glucose 108 mg/dL (74-106); Magnesium 2.1 mg/dL (1.8-2.4); Potassium 4.7 mmol/L (3.5-5.1); Sodium 137 mmol/L (136-145)
[2020-03-28 07:13] LABS: ALT 38 U/L (14-59); AST 38 U/L (15-37); Albumin 2.6 g/dL (3.4-5.0); Alkaline Phosphatase 97 U/L (46-116); Bilirubin, Direct 0.21 mg/dL (0.00-0.20); Bilirubin, Total 0.8 mg/dL (0.2-1.0); PHOSPHORUS 2.1 mg/dL (2.6-4.7); Total Protein 5.5 g/dL (6.4-8.2)
[2020-03-28 08:00] VITALS: BP 168/84; PULSE 81; RESP 20; TEMP 36.4; O2SAT 96
--- NOTE | 2020-03-28 08:02 | INITIAL_ITS ---
- If Service Date Differs Date of service: 03/28/20 Time of Service: 08:02 Care Management Initial Assess REASON FOR HOSPITALIZATION:: Acute intoxication, hypokalemia, hypomagnesemia PAST MEDICAL HISTORY/PAST SURGICAL HISTORY:: Medical History . Alcohol abuse (Chronic). Alcoholic ketosis (Resolved). Allergic rhinitis (Chronic). Anemia (Chronic 12/20/16). Back pain, chronic (Chronic). CAP (community acquired pneumonia) (Resolved). Cataract (Chronic 11/07/15). Cervical radicular pain (Chronic). neck pain and DJD. [facility]. Chronic alcoholic gastritis (Chronic 10/12/17). pls refrain from alcohol. Corneal ulcer, right (Inactive ~08/23/18). 08/23/18; UV-kb. Depression (Chronic). Elev transaminase/LDH (Chronic). due to alcohol. Fall (Acute). Falling (Chronic). Genital herpes simplex (Chronic). recurrent gential; suppressive Valtrex. GERD (gastroesophageal reflux disease) (Chronic). GI bleed (Resolved 12/20/16). Headache (Resolved). Hyperlipidemia (Chronic). Hypertension (Chronic). high today; she will check readings at home. Macrocytosis (Chronic 09/26/14). due to alcohol. Multiple rib fractures (Resolved). 03/11/19 [facility]. Non-cardiac chest pain (Resolved 09/21/16). [facility] 09/21/16 NEGATIVE MP. Osteoarthritis (Chronic). Osteopenia (Chronic). 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). Peripheral edema (Acute). Pleural effusion on left (Resolved). 03/11/19 [facility]. Right rib fracture (Resolved). Sciatica (Chronic). right, epidural injuections. [facility]. Tendinitis of left rotator cuff (Inactive). Tubular adenoma of colon (Chronic 01/28/17). Urinary incontinence (Chronic). 01/24/13 urethral suspension and sling at [facility]. (bladder suspension 1991). Wernicke encephalopathy (Chronic). Surgical History . Bladder Surgery. suspension. Colonoscopy - MAC (01/28/17). EGD - MAC (12/20/16). History of bilateral ligation of fallopian tubes (Inactive). Ligation of fallopian tube. Repair bladder injury, simple PREVIOUS FUNCTIONAL STATUS/SOCIAL/FAMILY SUPPORTS:: Leticia lives alone in [place], [place] she states she does not have a caregiver at this time. Leticia uses [facility] for transportation, she has minimal community supports and states she uses alcohol on a daily basis. CURRENT FUNCTIONAL STATUS:: Leticia is unable to engage with CM at this time. She received 3mg ativan due to CIWA assessment. She does answer some questions she states she does not currently have services or a caregiver. She is unable to answer any furthur questions and quickly falls back to sleep in the recliner. ADVANCE DIRECTIVES:: DNR/COLST on file dwayne Avery is agent Has patient been provided with info about the portal/API?: Yes Did the patient sign up for the portal?: Yes (Enrolled ) CODE STATUS:: DNR/DNI INSURANCE COVERAGE / FINANCIAL ISSUES:: [employer] [facility] and [employer] assist 47% CURRENT HOME/COMMUNITY SERVICES/EQUIPMENT:: Leticia was recently discharged from home health nursing. She has a FWW and MOW. PRIMARY CARE PHYSICIAN:: Lavelle Galindo POTENTIAL DISCHARGE NEEDS:: Follow up with PCP and discharge plan of care, and resumption of home health nursing. PATIENT/FAMILY EDUCATION NEEDS:: Discharge plan, limitations, follow up plan, Ask Me Three ANTICIPATED BARRIERS TO DISCHARGE:: Leticia has a long history of alcohol use and has difficulty caring for herself when intoxicated. She was recently discharged from home health services. TRANSPORTATION:: Via [facility] at time of discharge coordianted by CM. PLAN:: Leticia will be discharged home when medically ready. CM will continue to provide support and discharge planning.
[2020-03-28 08:26] LABS: COVID-19 RT-PCR UVMMC Result Negative (Negative)
[2020-03-28] MEDS: Folic Acid 1 MG TAB PO (08:49)
[2020-03-28] MEDS: Potassium Chloride Liquid 20 MEQ PKT PO (08:49)
[2020-03-28] MEDS: Pantoprazole 40 MG TABCR PO (08:50)
[2020-03-28] MEDS: Magnesium Oxide 400 MG TAB PO (08:50)
[2020-03-28] MEDS: Gabapentin 300 MG CAP PO (08:50)
[2020-03-28] MEDS: Metoprolol 50 MG TAB PO (08:50)
[2020-03-28] MEDS: Thiamine 100 MG TAB PO (08:50)
[2020-03-28] MEDS: Venlafaxine 37.5 MG CAPCR PO (08:50)
[2020-03-28] MEDS: Multivitamin TAB 1 TAB PO (08:51)
[2020-03-28] MEDS: Sucralfate 1 GM TAB PO ×3 (08:51→17:10)
[2020-03-28] MEDS: Venlafaxine 150 MG CAPCR PO (08:51)
[2020-03-28] MEDS: Senna TAB 1 TAB PO (08:51)
[2020-03-28] MEDS: amLODIPine 10 MG TAB PO (08:51)
--- NOTE | 2020-03-28 10:41 | PHA.REVIEW ---
Pharmacy Admission Review - Admission Clinical Review (Last Reviewed 03/27/20 @ 18:45 by Gwyn Blake) Acute hypokalemia (Acute) Penicillins Allergy (Mild, Verified 03/27/20 12:07) Rash ramipril Allergy (Unknown, Verified 03/27/20 12:07) ITCHING meperidine [From Demerol] Adverse Reaction (Severe, Verified 03/27/20 12:07) Nausea bupropion Adverse Reaction (Mild, Verified 03/27/20 12:07) GI upset AMBER Inhibitors Adverse Reaction (Unknown, Verified 03/27/20 12:07) COUGH alendronate sodium Adverse Reaction (Unknown, Verified 03/27/20 12:07) GI Distress clarithromycin Adverse Reaction (Unknown, Verified 03/27/20 12:07) intolerant paroxetine Adverse Reaction (Unknown, Verified 03/27/20 12:07) Diarrhea Weight 57.8 kg - Renal Dosing Renal Dosing: BUN 8 mg/dL (7-18) 03/28/20 06:40 Creatinine 0.81 mg/dL (0.55-1.02) 03/28/20 06:40 Medications needing adjustments: N/A (Need patient height in order to calculate CrCl) - Anticoagulation Anticoagulation: Hgb 9.5 g/dL (11.2-15.7) L 03/27/20 12:42 Hct 30.5 % (36.0-46.0) L 03/27/20 12:42 Plt Count 270 10^3/uL (130-400) 03/27/20 12:42 Creatinine 0.81 mg/dL (0.55-1.02) 03/28/20 06:40 DVT Prohphylaxis: N/A Therapeutic Anticoagulation: N/A - Opiate Usage Evaluate Pain Scale/Pains Meds: N/A - Relevant Labs Sodium 137 mmol/L (136-145) 03/28/20 06:40 Potassium 4.7 mmol/L (3.5-5.1) 03/28/20 06:40 Chloride 106 mmol/L (98-107) 03/28/20 06:40 Phosphorus 2.1 mg/dL (2.6-4.7) L 03/28/20 06:40 Magnesium 2.1 mg/dL (1.8-2.4) 07/31/20 06:40 Electrolytes, C-Reactive P, ESR: Reviewed (Phosphorous low at 2.1, AST slightly elevated at 38) - DM Control DM Control: Glucose 108 mg/dL (74-106) H 03/28/20 06:40 Insulin Dosing: N/A (No DM, glucose was elevated at 108 (decrease from 137 on 03/27/2020)) - Heart Failure/AK EF%, AMBER's, B-Blockers, Diuretics: N/A - BP Control BP Control: Blood Pressure 168/84 Blood Pressure 151/83 If elevated: Reviewed (BP 168/84, elevated for both readings this morning, and a most of the readings from last night.) - Qtc Review If Elevated: Reviewed (QTc 520 03/27/2020 - currently on venlafaxine, prochlorperazine and promethazine) List meds needing interventions: MD had order for IV ondansetron, once aware of QTc level the order was DC - IV to PO Switch IV Medications: Reviewed (IV promethazine) - Home Meds Home Med List reviewed: Reviewed (dicyclomine, HCTZ, loperamide, ondansetron (DC order due to QTc)) - Current meds Current Medication Order Review: Reviewed (Multiple drug interactions for respiratory depression (monitor)) - Comments Comments/Follow Ups: Monitor phosphorous, BP and QTc (on multiple QTc prolonging meds, ondansetron was DC). Monitor for med changes (addition of any more QTc prolonging meds). Mag and K have normalized since admission, IV fluids and banana bag are being DC. CIWA score of 10-13, stated that patient rarely goes into withdrawal and to DC the CIWA protocol. If patient can tolerate lunch she will most likely be discharged.
[2020-03-28 11:15] VITALS: BP 149/87; PULSE 86; RESP 20; TEMP 36.4; O2SAT 97
[2020-03-28 15:51] VITALS: BP 125/75; PULSE 84; RESP 19; TEMP 36.9; O2SAT 95
--- NOTE | 2020-03-28 16:00 | DSE_ITS ---
Date of service: 03/28/20 Time of Service: 16:01 DS: Diagnosis Discharge Diagnosis (1) Acute hypokalemia: Status: Resolved (2) Alcohol abuse: Status: Chronic (3) Chronic alcoholic gastritis: Status: Chronic Asessment and Plan: Patient is to resume her PPI and her Carafate and to refrain from drinking. Follow-up with Dr. Galindo in the next 1 to 2 weeks. (4) GERD (gastroesophageal reflux disease): Status: Chronic Asessment and Plan: Resume PPI and Carafate as above. (5) Hypertension: Status: Chronic Asessment and Plan: No change to her medications. (6) Hypomagnesemia: Status: Resolved Asessment and Plan: Continue oral supplementation. Discharge Plan Disposition Patient Disposition: HOME Condition: Stable Discharge Details Chief Complaint: ETOHWithdr Clinical Impression: Acute hypokalemia, Alcohol abuse Reason For Visit: ALCOHOL INTOXICATION,HYPOKALEMIA,HYPOMAGNESEMIA Admit Date/Time: 03/27/20 14:06 Admit Provider: Gwyn Blake Attending Provider: Gwyn Blake Primary Care Provider: Lavelle Galindo ED Provider: Moose Lafleur Hospital Course Hospital Course: 74-year-old female alcoholic with a history of frequent admissions to this hospital for alcoholic gastritis and alcohol withdrawal. She has a history of essential hypertension, GERD, chronic back pain, depression who allegedly had quit drinking for two weeks but recently resumed her drinking. Allegedly her last drink was yesterday and she reports that she only drank 3 ounces yet she presented with a blood alcohol level of 258. She called EMS today for assist after she slumped to the ground was unable to get back up. She said she was nausea and felt weak and felt like she was going through alcohol withdrawal. She denies a loss of consciousness or any injury to herself but complained of a mild left-sided headache. On arrival to emergency department her vital signs were stable with a blood pressure 141/71 and a pulse of 91 and she was afebrile with normal oxygenation. Patient complained of diffuse abdominal tenderness and was nauseated and was given antiemetics and IV fluids. Laboratory studies were remarkable for a low magnesium of 1.2 and a potassium level of 2.2 with a normal BUN of 9 and creatinine 0.6. Her anion gap was slightly elevated at 13.1 with a carbon dioxide of 20.9. Glucose was elevated 137. AST ALT alkaline phosphatase all within normal limits. Lipase was normal at 79. CBC was remarkable for chronic stable anemia with a hemoglobin 9.5 g hematocrit 30% with a normal platelet count 270,000 and a white cell count 3700. She was treated emergency department with antiemetics and IV fluids and was given a potassium bolus of 20 mEq IV along with oral potassium chloride 20 mEq. She was given a dose of Lorazepam 0.5 mg IV and given a bolus of magnesium sulfate 2 g IV. Because of the severity of her electrolyte abnormalities and because of her protracted nausea and vomiting it was felt that she needed to be hospitalized and stabilized with IV fluids and replacement of her electrolytes. She has had multiple hospitalizations with similar presentations. Although it is doubtful that she is going through acute alcohol withdrawal given her elevated blood alcohol level she will be monitor with [facility] protocol overnight and treated appropriately. We have shown on multiple occasions in the past that a lot of her symptoms are related to withdrawal of her medications including her beta-blo ckers and her amlodipine and her gabapentin and also with not taking her Protonix and Carafate. Patient's nausea and vomiting resolved overnight. Her electrolytes were corrected with both IV and oral potassium and magnesium. Patient was tolerating her diet the next morning. She was felt not to be in acute alcohol withdrawal. Case management reached out to area nursing homes to see if any would accept her for temporary placement and none responded. Patient will be discharged home with follow-up through referral with [facility] health services to monitor her nutritional status and electrolyte as well as her alcoholism. Home Meds and New Rx's Prescriptions: Continued meclizine 25 mg tablet 25 mg PO TID PRN (Reason: dizziness) Qty: 30 RF: 1 venlafaxine 37.5 mg capsule,extended release 24hr 37.5 mg PO DAILY Qty: 30 RF: 11 venlafaxine 150 mg capsule,extended release 24hr 150 mg PO DAILY Qty: 30 RF: 11 hydrochlorothiazide 12.5 mg tablet 12.5 mg PO DAILY Qty: 90 RF: 3 gabapentin 300 mg capsule 300 mg PO BID Qty: 90 RF: 5 metoprolol tartrate 50 mg tablet 50 mg PO BID Qty: 180 RF: 3 sennosides [Senokot] 8.6 mg tablet 8.6 mg PO BID Qty: 180 RF: 3 magnesium oxide 400 mg magnesium capsule 400 mg PO BID Qty: 180 RF: 3 amlodipine 10 mg tablet 10 mg PO DAILY Qty: 90 RF: 3 pantoprazole 40 mg tablet,delayed release (DR/EC) 40 mg PO DAILY Qty: 90 RF: 3 Ensure Active High Protein Liquid 414 ml PO DAILY Qty: 51076 RF: 11 multivitamin [Multiple Vitamins] Tablet 1 tab PO DAILY Qty: 90 RF: 3 potassium chloride [Klor-Con M10] 10 mEq tablet,ER particles/crystals 10 meq PO DAILY Qty: 90 RF: 3 dicyclomine 10 mg capsule 10 mg PO QID PRN (Reason: belly pain) Qty: 40 RF: 0 sucralfate 1 gram tablet 1 g PO AC & HS Qty: 120 RF: 5 ipratropium-albuterol 0.5 mg-3 mg(2.5 mg base)/3 mL solution for nebulization 3 ml IH QID PRN (Reason: shortness of breath) Qty: 90 RF: 3 fluticasone propionate 50 mcg/actuation spray,suspension 1 spray NS daily prn Qty: 9.9 RF: 2 folic acid 1 mg Tablet 1 mg PO DAILY Qty: 14 RF: 0 Refresh Plus 0.5 % Dropperette 1 drp OU Q4H WHILE AWAKE Qty: 30 RF: 0 fluticasone propionate 50 mcg/actuation [place],Suspension 1 spray NS DAILY Qty: 15.8 RF: 0 bisacodyl 5 mg Tablet,Delayed Release (Dr/Ec) 10 mg PO .q72h prn PRN (Reason: constipation - if no BM In 3 days) Qty: 10 RF: 0 promethazine 25 mg tablet 25 mg PO Q6H PRN (Reason: nausea and vomiting) Qty: 10 RF: 0 loperamide 2 mg capsule 2 mg PO Q4H PRN (Reason: loose stool) Qty: 20 RF: 0 thiamine mononitrate (vit B1) [Vitamin B-1 (mononitrate)] 100 mg Tablet 100 mg PO DAILY Qty: 10 RF: 0 ondansetron HCl [Zofran] 4 mg tablet 4 mg PO Q8H Qty: 12 RF: 0 prochlorperazine maleate [Compazine] 10 mg tablet 10 mg PO TID PRN (Reason: nausea and vomiting) Qty: 7 RF: 0 Discontinued potassium chloride 20 mEq Packet 20 meq PO BID Qty: 10 RF: 0 Discharge Instructions Instructions: Acute Nausea and Vomiting (DC), Alcohol Dependence (DC) Stand Alone Forms: Nursing Discharge Form Referrals: Lavelle Galindo [Primary Care Provider] - (Call the office for follow-up next week. Present to the office next week for repeat labs including basic metabolic profile) Activity:: Activity as Tolerated Equipment/Supplies:: No Equipment Needed Diet:: Normal Diet Discharge Orders Discharge Orders: Discharge Order (Routine); Ordered 03/28/20 Ordered By: Gwyn Blake Other Ambulatory Orders: Basic Metabolic Panel (Routine) Timeframe: 1 Week Facility: [facility] - Location: [facility] Ordered By: Gwyn Blake Discharge Data Discharge Date/Time-TO BE ENTERED AT DEPARTURE: 03/28/20 17:33 DS: Summary Status at Discharge Functional status at discharge: independent ambulation Overall status at discharge: patient is back to baseline Mental Status: mental status grossly normal Speech and Movement: speech and movement normal Mood: congruent mood Affect: normal affect Exam Narrative Exam Narrative: Elderly female lying in her bed with the shades pulled down in her room. I entered the room with protective services case worker and open the shades to bring more light into the room so we could see her. Initially she tried to ignore me and the protective services case worker but eventually did engage in conversation. She indicated the protective services case worker that she would be interested in placement at SNF bed however the protective services case worker made referrals and none would accept her. Patient did indicate that she would prefer to go home rather than stay in the hospital. Abdomen soft nontender nondistended. Psych Mental Status: mental status grossly normal Speech and Movement: speech and movement normal Mood: congruent mood Affect: normal affect DS: Data Vitals/I&O Vitals and I&O: Vital Signs Temperature 36.9 C 03/28/20 15:51 Temperature Source Tympanic 03/28/20 15:51 Pulse 84 03/28/20 15:51 Pulse Rhythm Regular 03/28/20 08:45 Pulse 93 H 03/27/20 15:20 Respiratory Rate 19 03/28/20 15:51 Respiratory Effort Non-Labored 03/28/20 08:45 Respiratory Depth Normal 03/28/20 08:45 Respiratory Pattern Normal 03/28/20 08:45 Blood Pressure 125/75 03/28/20 15:51 Blood Pressure Mean 87 03/27/20 15:01 Blood Pressure Position Supine 03/27/20 12:02 Pulse Oximetry 95 03/28/20 15:51 Oxygen Delivery Method Room Air 03/28/20 15:51 Oxygen Flow Rate 0 03/28/20 15:51 Pain Level 0 03/28/20 15:51 Intake & Output 03/27/20 03/28/20 03/28/20 23:59 11:59 23:59 Intake Total 1490 / 1490 1370 / 1850 480 / 1850 Balance 1490 / 1490 1370 / 1850 480 / 1850 Weight 65.771 kg 57.8 kg Intake: IV 1250 / 1250 1000 / 1000 Oral 240 / 240 370 / 850 480 / 850 Other: Urine Color Yellow Urine Appearance Clear Urine Odor Strong Comment pt reported incontinence large Bed pad incontinent changed at this time. Stool Size Large Stool Characteristics Soft Formed Brown Voiding Methods Incontinent Incontinent Data Completed and Pending Labs on day of discharge: Labs from last 24 hours 03/28/20 03/28/20 03/27/20 06:40 06:40 22:08 Sodium 137 Potassium 4.7 4.5 D Chloride 106 Carbon Dioxide 24.7 Anion Gap 6.3 BUN 8 Creatinine 0.81 Estimated GFR/1.73 m2 >= 60.00 Glucose 108 H Calcium 8.4 L Phosphorus 2.1 L Magnesium 2.1 Total Bilirubin 0.8 Conjugated Bilirubin 0.21 H AST 38 H ALT 38 Alkaline Phosphatase 97 Total Protein 5.5 L Albumin 2.6 L COVID-19 PCR Nasopharyn COVID-19 PCR Ref Test Perform Site 03/27/20 03/27/20 19:00 14:40 Sodium Potassium Cancelled Chloride Carbon Dioxide Anion Gap BUN Creatinine Estimated GFR/1.73 m2 Glucose Calcium Phosphorus Magnesium Total Bilirubin Conjugated Bilirubin AST ALT Alkaline Phosphatase Total Protein Albumin COVID-19 PCR Negative Nasopharyn COVID-19 PCR Not Applicable Ref Test Perform Site [facility] Medical History Alcohol abuse (Acute) Alcoholic ketosis (Resolved) Allergic rhinitis (Chronic) Anemia (Chronic 12/20/16) Back pain, chronic (Chronic) CAP (community acquired pneumonia) (Resolved) Cataract (Chronic 11/07/15) Cervical radicular pain (Chronic) neck pain and [facility] Chronic alcoholic gastritis (Chronic 10/12/17) pls refrain from alcohol Chronic diarrhea (Acute) Contusion of left little finger (Acute) Corneal ulcer, right (Inactive ~08/23/18) 08/23/18; [facility] Depression (Chronic) Elev transaminase/LDH (Chronic) due to alcohol Fall (Acute) Falling (Acute) Genital herpes simplex (Chronic) recurrent gential; suppressive Valtrex GERD (gastroesophageal reflux disease) (Chronic) GI bleed (Resolved 12/20/16) Headache (Resolved) Hyperlipidemia (Chronic) Hypertension (Chronic) high today; she will check readings at home 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 Multiple rib fractures (Resolved) 03/11/19 [facility] Non-cardiac chest pain (Resolved 09/21/16) [facility] [place]/21[place]16 NEGATIVE MP Osteoarthritis (Chronic) Osteopenia (Chronic) 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) Peripheral edema (Acute) Pleural effusion on left (Resolved) 03/11/19 [facility] Right rib fracture (Resolved) Sciatica (Chronic) right, epidural injuections [facility] Tendinitis of left rotator cuff (Inactive) Tubular adenoma of colon (Chronic 01/28/17) Urinary incontinence (Chronic) 01/24/13 urethral suspension and sling at [facility] [place] (bladder suspension 1991) Wernicke encephalopathy (Chronic) Surgical History Bladder Surgery suspension Colonoscopy - MAC (01/28/17) EGD - [facility] (12/20/16) History of bilateral ligation of fallopian tubes (Inactive) Ligation of fallopian tube Repair bladder injury, simple Family History Mother No problems noted. Father , DROWNED at age 50. No problems noted. Sister Personal history of malignant neoplasm MELANOMA Sister No problems noted. Grandfather Personal history of malignant neoplasm STOMACH Grandfather Personal history of malignant neoplasm PROSTATE Grandmother Heart disease [place] Acute ill-defined cerebrovascular disease Grandmother Personal history of malignant neoplasm UTERINE Aunt , [place] Heart disease [place] Aunt , [place] Heart disease Brother No problems noted. Social History Smoking/Tobacco Use Status: Former Tobacco Use Alcohol Intake: current Alcohol Intake frequency: 3 or more drinks per day Alcohol type: hard liquor Drug use: Never Substance use type: does not use Current gender identity: female Do you feel safe at home: Yes Do you feel safe in your relationship?: Yes Additional Social history:
== END 2020-03-28 17:33 | disposition home or self-care (01) ==
LOC: ER 15:51 → MS 16:04
PROVIDERS: Admitting Provider Internal Medicine; Emergency Provider Emergency Medicine; PCP Family Medicine; Visit Provider Internal Medicine
DX: E87.6 Hypokalemia (principal); E83.42 Hypomagnesemia; F10.229 Alcohol dependence with intoxication, unspecified; J30.9 Allergic rhinitis, unspecified; D64.9 Anemia, unspecified; M47.22 Other spondylosis with radiculopathy, cervical region; K29.20 Alcoholic gastritis without bleeding; F32.9 Major depressive disorder, single episode, unspecified; A60.00 Herpesviral infection of urogenital system, unspecified; I10 Essential (primary) hypertension; E78.5 Hyperlipidemia, unspecified; D75.89 Other specified diseases of blood and blood-forming organs; M85.80 Other specified disorders of bone density and structure, unspecified site; M54.30 Sciatica, unspecified side; E51.2 Wernicke's encephalopathy; K21.0 Gastro-esophageal reflux disease with esophagitis; Y90.8 Blood alcohol level of 240 mg/100 ml or more; R11.2 Nausea with vomiting, unspecified
CPT/HCPCS: 36415; 36416; 80048; 80053; 80076; 82962; 83690; 93005; 96361; 96365; 96366; 96368; 96375; 99220; 99238; 99285; U0003; 80320; 83735; 84100; 84132; 85025; 93010; 99217; G0378; J2060; J2405; J3480

== ENCOUNTER 2020-04-13 17:44 | Observation (INO) | payer OTHER, SELFPAY ==
[2020-04-13] VITALS (26 sets, daily range): BP systolic 154–171; BP diastolic 73–98; PULSE 80–97; RESP 9–22; TEMP 35.9–37.1; O2SAT 88–99
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
--- NOTE | 2020-04-13 17:45 | W.ED.GENAD ---
Discharge Plan Disposition Patient Disposition: [facility] INPATIENT Condition: Fair Discharge Details Chief Complaint: Chest/Rib Clinical Impression: Multiple fractures of ribs, Hypoxia, History of alcohol abuse Admit Date/Time: 04/13/20 19:39 Admit Provider: Diandra Wells Attending Provider: Diandra Wells Primary Care Provider: Lavelle Galindo ED Provider: Megan Foster Discharge Data Discharge Date/Time-TO BE ENTERED AT DEPARTURE: 04/13/20 20:20 Discharge Physician: Megan Foster Medical Decision Making 1755 -- 74-year-old female well-known to the emergency department with a history of chronic alcohol abuse and frequent falls related to alcohol presents for right sided rib pain for the past 2 days after mechanical fall out of her recliner. BP hypertensive but remainder vitals within normal limits. She appears calm, slightly uncomfortable but no tremors or shaking. She demonstrates no signs of alcohol withdrawal. She is answering questions appropriately and is oriented x3. She has tenderness to palpation of the right inferior lateral ribs and right upper quadrant. He is moving all extremities without deformity. Lungs clear. She has midline spinal tenderness. We will check screening labs and refer for CT head to pelvis imaging. 1930 -- Labs and imaging reviewed. Patient has right 7 through 10 rib fractures. No pneumothorax. No acute findings in abdomen. Oxygen saturation has fluctuated between 87 to 93% on room air. Suspect this is due to poor inspiration associated with pain from rib fractures. Patient lives alone and has a telegraph and teletype operator that checks on her during the day. Will admit for observation overnight, pain control and O2 monitoring. Case discussed with hospitalist who recommends discussing with surgery for admission as presentation more focused on pain control with rib fractures. Case discussed with surgery Dr. Wells who accepts patient for admission. Admit orders placed. Patient's telegraph and teletype operator Armida notified. Medical Records Medical records reviewed: Yes I reviewed the patient's medical records. Imaging Data Radiologic Study: Radiologist's impression: CT Head Without Contrast Exam date and time: 04/13/2020 6:26 PM Age: 74 years old Clinical indication: Injury or trauma; Fall; Initial encounter; Blunt trauma TECHNIQUE: Imaging protocol: Computed tomography of the head without contrast. COMPARISON: CT HEAD WO 11/21/2019 10:42 PM FINDINGS: Diffuse atrophy. Chronic white matter changes of probable small vessel disease. No evidence of hemorrhage. No mass effect. No acute intracranial abnormality. No evidence of acute fracture. IMPRESSION: No evidence of acute intracranial process. CT Cervical Spine Without Contrast Exam date and time: 04/13/2020 6:26 PM Age: 74 years old Clinical indication: Injury or trauma; Fall; Initial encounter; Blunt trauma TECHNIQUE: Imaging protocol: Computed tomography images of the cervical spine without contrast. COMPARISON: CT HEAD WO 11/21/2019 10:42 PM FINDINGS: Marked degenerative disc and facet disease of the midcervical spine. Reversal of the normal cervical lordosis. No acute fracture identified. Paraspinous soft tissues unremarkable. Lung apices unremarkable. IMPRESSION: Marked degenerative disc and facet disease with no evidence of acute bony abnormality. CT chest w/ contrast Acute right-sided rib fractures superimposed on chronic or subacute bilateral rib fractures. CT abdomen and pelvis w/ contrast Liver, spleen, and kidneys intact. No abnormal fluid collections. No extraluminal air. Diffuse degenerative disc and facet disease of the lumbar spine. CT Thoracic Spine With Contrast Exam date and time: 04/13/2020 6:32 PM Age: 74 years old Clinical indication: Other: Fall, R chest pain; Chest wall pain TECHNIQUE: Imaging protocol: Computed tomography images of the thoracic spine with intravenous contrast. COMPARISON: No relevant prior studies available. FINDINGS: Acute and chronic rib fractures as previously described on a CT scan of the chest. Minimal degenerative spurring of the thoracic spine. No acute fracture of the thoracic spine. Paraspinous soft tissues unremarkable. IMPRESSION: 1. Rib fractures as previously described. 2. No other evidence of acute bony abnormality. CT Lumbar Spine With Contrast Exam date and time: 04/13/2020 6:32 PM Age: 74 years old Clinical indication: Other: Fall, R chest pain; Chest wall pain TECHNIQUE: Imaging protocol: Computed tomography images of the lumbar spine with intravenous contrast. COMPARISON: No relevant prior studies available. FINDINGS: Diffuse degenerative spurring. The bony structures are in anatomic alignment. No fracture is present. No radiopaque foreign body is identified. Parasinous soft tissues unremarkable. IMPRESSION: No evidence of acute bony abnormality. Lab Data Lab results reviewed: Yes I reviewed the patient's lab results. Labs: Laboratory Tests Range/Units 04/13/20 04/13/20 18:12 18:12 WBC (4.4-10.8) 10^3/uL 5.70 RBC (3.93-5.22) 10^6/uL 3.36 L Hgb (11.2-15.7) g/dL 9.3 L Hct (36.0-46.0) % 29.9 L MCV (80-95) fL 89.0 MCH (27.0-33.0) pg 27.7 MCHC (32.0-36.0) % 31.1 L RDW (11.7-14.6) % 19.9 H Plt Count (130-400) 10^3/uL 289 MPV (8.0-11.0) fL 8.8 Immature Gran % 0.4 Neutrophils % 79.5 Lymphocytes % 10.9 Monocytes % 8.8 Eosinophils % 0.0 Basophils % 0.4 Absolute Neutrophils (1.2-6.7) 10^3/uL 4.54 Absolute Lymphocytes (1.2-3.4) 10^3/uL 0.62 L Absolute Monocytes (0.1-0.8) 10^3/uL 0.50 Absolute Eosinophils (0.0-0.7) 10^3/uL 0.00 Absolute Basophils (0.0-0.2) 10^3/uL 0.02 Sodium (136-145) mmol/L 139 Potassium (3.5-5.1) mmol/L 3.3 L Chloride (98-107) mmol/L 99 Carbon Dioxide (21.0-32.0) mmol/L 28.6 Anion Gap (3-11) mmol/L 11.4 H BUN (7-18) mg/dL 12 Creatinine (0.55-1.02) mg/dL 1.00 Estimated GFR/1.73 m2 (mL/min/1.73m2) 54.35 Glucose (74-106) mg/dL 169 H Calcium (8.5-10.1) mg/dL 10.0 Magnesium (1.8-2.4) mg/dL 1.5 L Total Bilirubin (0.2-1.0) mg/dL 1.0 AST (15-37) U/L 61 H ALT (14-59) U/L 52 Alkaline Phosphatase (46-116) U/L 140 H Troponin I (<0.06) ng/mL < 0.05 Total Protein (6.4-8.2) g/dL 6.9 Albumin (3.4-5.0) g/dL 3.3 L HPI General Mode of arrival: ambulatory. Date/Time Provider Initiated Documentation: 04/13/20 17:45. Limitations to Documentation: no limitations. Information obtained by: patient. HPI Narrative: Pt is a 74 yo F well-known to the emergency department with a history of chronic alcohol abuse who presents to the ED w/ a c/o right lateral rib pain after she fell out of her recliner 2 days ago. Patient states the leg of her recliner broke and she fell to her right side hitting her right lateral ribs on her metal table. She states she also hit the back of her head on the floor but denies any LOC or vomiting. She admits to mild headache and neck pain but states she has a history of chronic neck pain. She denies chest pain, shortness of breath, abdominal pain, back pain. She states her last alcoholic drink was 3 days ago. EMS gave patient 4 mg of morphine and she vomited once in route and was given a dose of Zofran. Related Data Home Medications Medication Instructions Recorded Confirmed folic acid 1 mg PO DAILY #14 tab 08/11/18 04/13/20 Refresh Plus 1 drp OU Q4H WHILE AWAKE #30 each 06/20/19 04/13/20 venlafaxine 150 mg 150 mg PO DAILY #30 cap 06/27/19 04/13/20 capsule,extended release 24 hr venlafaxine 37.5 mg 37.5 mg PO DAILY #30 cap 06/27/19 04/13/20 capsule,extended release 24 hr amlodipine 10 mg tablet 10 mg PO DAILY #90 tab 06/28/19 04/13/20 magnesium oxide 400 mg PO BID #180 cap 07/17/19 04/13/20 bisacodyl 10 mg PO .q72h prn PRN #10 tab 08/19/19 04/13/20 food supplemt, lactose-reduced 414 ml PO DAILY #04179 ml 08/24/19 04/13/20 pantoprazole 40 mg tablet,delayed 40 mg PO DAILY #90 tab 08/24/19 04/13/20 release gabapentin 300 mg capsule 300 mg PO BID #90 cap 08/28/19 04/13/20 hydrochlorothiazide 12.5 mg tablet 12.5 mg PO DAILY #90 tab 08/28/19 04/13/20 metoprolol tartrate 50 mg tablet 50 mg PO BID #180 tab 08/28/19 04/13/20 sennosides 8.6 mg tablet 8.6 mg PO BID #180 tab 08/28/19 04/13/20 meclizine 25 mg tablet 25 mg PO TID PRN #30 tab 09/14/19 04/13/20 multivitamin 1 tab PO DAILY #90 tab 09/14/19 04/13/20 potassium chloride 10 mEq 10 meq PO DAILY #90 tab 09/14/19 04/13/20 tablet,extended release(part/cryst) loperamide 2 mg PO Q4H PRN #20 cap 11/03/19 04/13/20 promethazine 25 mg PO Q6H PRN #10 tab 11/03/19 04/13/20 dicyclomine 10 mg capsule 10 mg PO QID PRN #40 cap 11/06/19 04/13/20 sucralfate 1 gram tablet 1 g PO AC & HS #120 tab 11/06/19 04/13/20 thiamine mononitrate (vit B1) 100 mg PO DAILY #10 tab 11/23/19 04/13/20 [Vitamin B-1 (mononitrate)] prochlorperazine maleate 10 mg PO TID PRN #7 tab 01/02/20 04/13/20 [Compazine] ipratropium 0.5 mg-albuterol 3 mg 3 ml IH QID PRN #90 ml 01/04/20 04/13/20 (2.5 mg base)/3 mL nebulization soln ondansetron HCl [Zofran] 4 mg PO Q8H #12 tab 02/07/20 04/13/20 fluticasone propionate 50 1 spray NS daily prn #9.9 ml 03/25/20 04/13/20 mcg/actuation nasal spray,suspension Previous Rx's Medication Instructions Recorded folic acid 1 mg PO DAILY #14 tab 08/11/18 Refresh Plus 1 drp OU Q4H WHILE AWAKE #30 each 06/20/19 venlafaxine 150 mg 150 mg PO DAILY #30 cap 06/27/19 capsule,extended release 24 hr venlafaxine 37.5 mg 37.5 mg PO DAILY #30 cap 06/27/19 capsule,extended release 24 hr amlodipine 10 mg tablet 10 mg PO DAILY #90 tab 06/28/19 magnesium oxide 400 mg PO BID #180 cap 07/17/19 bisacodyl 10 mg PO .q72h prn PRN #10 tab 08/19/19 food supplemt, lactose-reduced 414 ml PO DAILY #40917 ml 08/24/19 pantoprazole 40 mg tablet,delayed 40 mg PO DAILY #90 tab 08/24/19 release gabapentin 300 mg capsule 300 mg PO BID #90 cap 08/28/19 hydrochlorothiazide 12.5 mg tablet 12.5 mg PO DAILY #90 tab 08/28/19 metoprolol tartrate 50 mg tablet 50 mg PO BID #180 tab 08/28/19 sennosides 8.6 mg tablet 8.6 mg PO BID #180 tab 08/28/19 meclizine 25 mg tablet 25 mg PO TID PRN #30 tab 09/14/19 multivitamin 1 tab PO DAILY #90 tab 09/14/19 potassium chloride 10 mEq 10 meq PO DAILY #90 tab 09/14/19 tablet,extended release(part/cryst) loperamide 2 mg PO Q4H PRN #20 cap 11/03/19 promethazine 25 mg PO Q6H PRN #10 tab 11/03/19 dicyclomine 10 mg capsule 10 mg PO QID PRN #40 cap 11/06/19 sucralfate 1 gram tablet 1 g PO AC & HS #120 tab 11/06/19 thiamine mononitrate (vit B1) 100 mg PO DAILY #10 tab 11/23/19 [Vitamin B-1 (mononitrate)] prochlorperazine maleate 10 mg PO TID PRN #7 tab 01/02/20 [Compazine] ipratropium 0.5 mg-albuterol 3 mg 3 ml IH QID PRN #90 ml 01/04/20 (2.5 mg base)/3 mL nebulization soln ondansetron HCl [Zofran] 4 mg PO Q8H #12 tab 02/07/20 fluticasone propionate 50 1 spray NS daily prn #9.9 ml 03/25/20 mcg/actuation nasal spray,suspension Allergies Allergy/AdvReac Type Severity Reaction Status Date / Time Penicillins Allergy Mild Rash Verified 04/13/20 17:50 ramipril Allergy Unknown ITCHING Verified 04/13/20 17:50 meperidine [From Demerol] AdvReac Severe Nausea Verified 04/13/20 17:50 bupropion AdvReac Mild GI upset Verified 04/13/20 17:50 AMBER Inhibitors AdvReac Unknown COUGH Verified 04/13/20 17:50 alendronate sodium AdvReac Unknown GI Distress Verified 04/13/20 17:50 clarithromycin AdvReac Unknown intolerant Verified 04/13/20 17:50 paroxetine AdvReac Unknown Diarrhea Verified 04/13/20 17:50 General JORDAN: 3 Review of Systems All systems reviewed & are unremarkable except as noted in HPI and below Constitutional Constitutional: Reports as per HPI, Denies chills and Denies fever(s) Eyes Eyes: Denies blurry vision ENT Ears, Nose, Mouth, and Throat: Denies dizziness, Denies sore throat and Denies throat swelling Cardiovascular Cardiovascular: Denies chest pain and Denies dyspnea Respiratory Respiratory: Denies cough and Denies dyspnea Gastrointestinal Gastrointestinal: Denies abdominal pain, Denies diarrhea and Denies vomiting Genitourinary Genitourinary: Denies hematuria and Denies dysuria Musculoskeletal Musculoskeletal: Denies back pain, Denies numbness and Reports other (Right rib pain) Integumentary/Breasts Skin/Breast: Denies lesions and Denies rash Neurologic Neurologic: Denies dizziness, Denies localized weakness and Denies numbness Allergic/Immunologic Allergic/Immunologic: Denies throat swelling [facility] Medical History (Updated 04/13/20 @ 20:16 by Megan Foster DO) Alcohol abuse (Acute) Alcoholic ketosis (Resolved) Allergic rhinitis (Chronic) Anemia (Chronic 12/20/16) Back pain, chronic (Chronic) CAP (community acquired pneumonia) (Resolved) Cataract (Chronic 11/07/15) Cervical radicular pain (Chronic) neck pain and [facility] Chronic alcoholic gastritis (Chronic 10/12/17) pls refrain from alcohol Chronic diarrhea (Acute) Contusion of left little finger (Acute) Corneal ulcer, right (Inactive ~08/23/18) 08/23/18; [facility] Depression (Chronic) Elev transaminase/LDH (Chronic) due to alcohol Fall (Acute) Falling (Acute) Genital herpes simplex (Chronic) recurrent gential; suppressive Valtrex GERD (gastroesophageal reflux disease) (Chronic) GI bleed (Resolved 12/20/16) Headache (Resolved) Hyperlipidemia (Chronic) Hypertension (Chronic) high today; she will check readings at home 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 Multiple rib fractures (Resolved) 03/11/19 [facility] Non-cardiac chest pain (Resolved 09/21/16) [facility] [place] NEGATIVE MP Osteoarthritis (Chronic) Osteopenia (Chronic) 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) Peripheral edema (Acute) Pleural effusion on left (Resolved) 03/11/19 [facility] Right rib fracture (Resolved) Sciatica (Chronic) right, epidural injuections [facility] Tendinitis of left rotator cuff (Inactive) Tubular adenoma of colon (Chronic 01/28/17) Urinary incontinence (Chronic) 01/24/13 urethral suspension and sling at [facility] [place] (bladder suspension 1991) Wernicke encephalopathy (Chronic) Surgical History Bladder Surgery suspension Colonoscopy - [facility] (01/28/17) EGD - [facility] (12/20/16) History of bilateral ligation of fallopian tubes (Inactive) Ligation of fallopian tube Repair bladder injury, simple Family History Mother No problems noted. Father , DROWNED at age 50. No problems noted. Sister Personal history of malignant neoplasm MELANOMA Sister No problems noted. Grandfather Personal history of malignant neoplasm STOMACH Grandfather Personal history of malignant neoplasm PROSTATE Grandmother Heart disease RI Acute ill-defined cerebrovascular disease Grandmother Personal history of malignant neoplasm UTERINE Aunt , RI Heart disease RI Aunt , RI Heart disease Brother No problems noted. Social History Smoking/Tobacco Use Status: Former Tobacco Use Alcohol Intake: current Alcohol Intake frequency: 3 or more drinks per day Alcohol type: hard liquor Drug use: Never Substance use type: does not use Details: states last drink was Current gender identity: female Do you feel safe at home: Yes Do you feel safe in your relationship?: Yes Additional Social history: Exam Const General: cooperative, no acute distress, disheveled and ill appearing chronically Orientation: alert, awake and oriented x3 HENMT Head: normal to inspection Ears: hearing grossly normal bilaterally and external ears normal General nose exam: external nose normal Face and sinus: normal facial exam Mouth: oral mucosae normal Teeth and gingiva: dentition normal Throat: posterior oropharynx normal Eyes General: appearance normal, both eyes and all related structures Eyelids: eyelids normal Pupils: PERRL EOM: EOM intact bilaterally Neck Neck: normal visual inspection Lymphatic: no lymphadenopathy noted Chest Chest: normal inspection of the chest Chest/axillae images: 1. Tenderness to palpation of right inferior lateral ribs. No crepitus, step-off, ecchymosis, erythema, edema. Resp Effort & Inspection: normal respiratory effort and able to speak in complete sentences Auscultation: clear to auscultation bilaterally Cardio Rate: regular rate Rhythm: regular rhythm GI Inspection: normal to inspection and no abdominal wall ecchymosis Palpation: soft, not firm, no guarding, no hepatosplenomegaly, no masses and tender in the RUQ Auscultation: normal bowel sounds Back/Spine/Pelvis Thoracic/Lumbar Spine: thoracic and lumbar spine normal to inspection, thoracic spinal tenderness and lumbar spinal tenderness Pelvis: no pain with anterior-posterior compression Sacrum: no ecchymosis and no tenderness Coccyx: no swelling and no tenderness Skin General skin exam: no rashes or lesions noted Neuro General: patient alert and patient awake Cognition: normal cognition Speech: speech normal Gait: normal gait Motor: muscle tone normal throughout Sensory Exam: no sensory deficits noted Extrem General: normal to inspection, full ROM and capillary refill normal Right lower extremity: normal to inspection and full ROM Left lower extremity: normal to inspection and full ROM Other: Tenderness to palpation and minimal pain with range of motion at right hip. No deformity. No significant pain with range of motion bilateral upper extremities or left lower extremity. Psych Appearance: grossly normal Mental Status: mental status grossly normal Speech and Movement: speech and movement normal Affect: normal affect Thought Process: normal
--- NOTE | 2020-04-13 18:00 | DI.CT_ITS ---
EXAM: CT HEAD CERVICAL SPINE WO CLINICAL HISTORY: hit head on floor, headache. TECHNIQUE: Imaging Protocol: Axial computed tomography images with coronal and sagittal reformatted images were created and reviewed COMPARISON: CT CT HEAD WO from 11/21/2019 FINDINGS: Head CT Ventricles and Extra axial spaces: Normal in size and morphology for the patient's age. Hemorrhage: None. Cerebral parenchyma: Atrophy. Mild mild white matter changes of small vessel disease. Midline shift: None. Brainstem/Cerebellum: Normal. Calvarium: Normal. Visualized Paranasal sinuses/Mastoids: Clear. Cervical Spine CT BONES: Vertebral body heights are maintained. Alignment is normal. There is no evidence of acute frac ture. SOFT TISSUES: No paraspinal hematoma. The airway appears intact. Severe degenerative disc changes and severe facet degenerative changes are seen . reversal of the no rmal cervical lordosis. IMPRESSION: Head CT: Atrophy. No acute abnormality. C-spine CT: Degenerative changes, no acute abnormality. Incidental RADIATION DOSE DELIVERED: 1,336.06mGy.cm Total DLP DATA REPOSITORY: All CT scans at this facility are submitted to the National Radiology Data Registry (NRDR) Dose Index Registry (DIR) with the [employer] ([employer]). RADIATION OPTIMIZATION: All CT scans at this facility use at least one of these dose optimization te chniques: automated exposure control; mA and/or kV adjustment per patient size (includes targeted exa ms where dose is matched to clinical indication); or iterative reconstruction.
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
[2020-04-13 18:23] LABS: Abs Immature Grans 0.02 10^3/uL (0.0-0.06); Absolute Basophil Count 0.02 10^3/uL (0.0-0.2); Absolute Lymphocyte Count 0.62 10^3/uL (1.2-3.4); Absolute Neutrophil Count 4.54 10^3/uL (1.2-6.7); Basophils % 0.4; HCT 29.9 % (36.0-46.0); HGB 9.3 g/dL (11.2-15.7); Immature Grans % 0.4; Lymphocytes % 10.9; MCH 27.7 pg (27.0-33.0); MCHC 31.1 % (32.0-36.0); MPV 8.8 fL (8.0-11.0); Monocytes % 8.8; Neutrophils % 79.5; Nucleated RBC 0 %; Platelet Count 289 10^3/uL (130-400); RBC 3.36 10^6/uL (3.93-5.22); RDW 19.9 % (11.7-14.6); RDW-SD 64.4 fL
[2020-04-13] MEDS: Normal Saline 1,000 ML 1000 ML IV (18:40)
[2020-04-13] MEDS: Omnipaque 350 MG/ML 100 ML BTL IJ (18:42)
[2020-04-13 18:49] LABS: ALT 52 U/L (14-59); AST 61 U/L (15-37); Albumin 3.3 g/dL (3.4-5.0); Alkaline Phosphatase 140 U/L (46-116); Anion Gap 11.4 mmol/L (3-11); BUN 12 mg/dL (7-18); CO2 28.6 mmol/L (21.0-32.0); Chloride 99 mmol/L (98-107); Estimated GFR 54.35 (mL/min/1.73m2); Glucose 169 mg/dL (74-106); Magnesium 1.5 mg/dL (1.8-2.4); Potassium 3.3 mmol/L (3.5-5.1); Sodium 139 mmol/L (136-145); Total Protein 6.9 g/dL (6.4-8.2)
--- NOTE | 2020-04-13 18:56 | DI.VRAD_ITS ---
PROCEDURE INFORMATION: Exam: CT Head Without Contrast Exam date and time: 04/13/2020 6:26 PM Age: 74 years old Clinical indication: Injury or trauma; Fall; Initial encounter; Blunt trauma TECHNIQUE: Imaging protocol: Computed tomography of the head without contrast. COMPARISON: CT HEAD WO 11/21/2019 10:42 PM FINDINGS: Diffuse atrophy. Chronic white matter changes of probable small vessel disease. No evidence of hemorrhage. No mass effect. No acute intracranial abnormality. No evidence of acute fracture. IMPRESSION: No evidence of acute intracranial process. PROCEDURE INFORMATION: Exam: CT Cervical Spine Without Contrast Exam date and time: 04/13/2020 6:26 PM Age: 74 years old Clinical indication: Injury or trauma; Fall; Initial encounter; Blunt trauma TECHNIQUE: Imaging protocol: Computed tomography images of the cervical spine without contrast. COMPARISON: CT HEAD WO 11/21/2019 10:42 PM FINDINGS: Marked degenerative disc and facet disease of the midcervical spine. Reversal of the normal cervical lordosis. No acute fracture identified. Paraspinous soft tissues unremarkable. Lung apices unremarkable. IMPRESSION: Marked degenerative disc and facet disease with no evidence of acute bony abnormality. Dictated and Authenticated by: Mendez Laird MD. Ordering:KATE Guzman MD
[2020-04-13 19:02] LABS: Troponin I < 0.05 ng/mL (<0.06)
--- NOTE | 2020-04-13 19:10 | DI.VRAD_ITS ---
PROCEDURE INFORMATION: Exam: CT Thoracic Spine With Contrast Exam date and time: 04/13/2020 6:32 PM Age: 74 years old Clinical indication: Other: Fall, R chest pain; Chest wall pain TECHNIQUE: Imaging protocol: Computed tomography images of the thoracic spine with intravenous contrast. COMPARISON: No relevant prior studies available. FINDINGS: Acute and chronic rib fractures as previously described on a CT scan of the chest. Minimal degenerative spurring of the thoracic spine. No acute fracture of the thoracic spine. Paraspinous soft tissues unremarkable. IMPRESSION: 1. Rib fractures as previously described. 2. No other evidence of acute bony abnormality. PROCEDURE INFORMATION: Exam: CT Lumbar Spine With Contrast Exam date and time: 04/13/2020 6:32 PM Age: 74 years old Clinical indication: Other: Fall, R chest pain; Chest wall pain TECHNIQUE: Imaging protocol: Computed tomography images of the lumbar spine with intravenous contrast. COMPARISON: No relevant prior studies available. FINDINGS: Diffuse degenerative spurring. The bony structures are in anatomic alignment. No fracture is present. No radiopaque foreign body is identified. Parasinous soft tissues unremarkable. IMPRESSION: No evidence of acute bony abnormality. Dictated and Authenticated by: Mendez Laird MD. Ordering:KATE Guzman MD
[2020-04-13] MEDS: Normal Saline 1,000 ML 125 ML IV (19:58)
[2020-04-13] MEDS: Potassium Chloride 20 MEQ TABCR 40 MEQ PO (19:58)
[2020-04-13] MEDS: MAGNESIUM SULFATE 2 GM/50 ML BAG IVPB (19:59)
--- NOTE | 2020-04-13 20:44 | NUR.NOTE ---
Nursing Note: Pt was being wheeled up to med surg and started vomiting. PT brought back into ED and cleaned of emesis, new gown and blankets change and pt brought to [facility].
[2020-04-13] MEDS: Metoprolol 50 MG TAB PO (21:11)
[2020-04-13 21:31] LABS: ETHANOL BLOOD < 3.0 mg/dL (<3)
[2020-04-14 03:25] VITALS: BP 150/90; PULSE 71; RESP 17; TEMP 36.6; O2SAT 93
[2020-04-14] MEDS: Normal Saline 1,000 ML 125 ML IV (04:49)
[2020-04-14] MEDS: Ketorolac 30 MG/ML VIAL IVP (04:49)
--- NOTE | 2020-04-14 07:12 | W.PM.HP.N ---
Date of service: 04/14/20 Time of Service: 07:12 Assessment and Plan Assessment and plan (1) Multiple fractures of ribs: Status: Acute Assessment and plan: A\\ 74 year old s/p fall. She came to the ER for right sided chest pain. CT scan revealed rib fractures on the right. She was somnolent and her Sats would drift into the high 80's. Most likely due to pain P\\ Will ask anesthesia to perform a rib block for pain Incentive spirometer Wean off O2. Hopefully Home today Qualifiers: Encounter type: initial encounter Fracture type: closed Laterality: right Qualified Code(s): S22.41XA - Multiple fractures of ribs, right side, initial encounter for closed fracture (2) Hypoxia: Status: Acute History of Present Illness History of Present Illness Chief Complaint: Right chest wall pain, hypoxia Consults Consult date: 04/13/20 Requesting physician: Megan Foster Narrative: 74-year-old female well-known to the emergency department with a history of chronic alcohol abuse and frequent falls related to alcohol presents for right sided rib pain for the past 2 days after mechanical fall out of her recliner. Workup revealed right sided rib fractures. No Ptx. She was also somnolent and her O2 sats would dip into the high 80's. She denies alcohol use at time of her fall on Tuesday. Her PMHx is significant for Chronic Nausea and chronic abdominal pain. Exam: CT Thoracic Spine With Contrast Exam date and time: 04/13/2020 6:32 PM Age: 74 years old Clinical indication: Other: Fall, R chest pain; Chest wall pain TECHNIQUE: Imaging protocol: Computed tomography images of the thoracic spine with intravenous contrast. COMPARISON: No relevant prior studies available. FINDINGS: Acute and chronic rib fractures as previously described on a CT scan of the chest. Minimal degenerative spurring of the thoracic spine. No acute fracture of the thoracic spine. Paraspinous soft tissues unremarkable. IMPRESSION: 1. Rib fractures as previously described. 2. No other evidence of acute bony abnormality. Review of Systems Constitutional Constitutional: Denies fever(s) and Denies headache(s) Eyes Eyes: Denies change in vision ENT Ears, Nose, Mouth, and Throat: Denies change in voice, Denies headache(s) and Denies hoarseness Cardiovascular Cardiovascular: Denies chest pain, Denies chest pain at rest, Denies irregular heart rhythm, Denies dyspnea and Denies dyspnea on exertion Respiratory Respiratory: Reports cough, Denies dyspnea and Denies dyspnea on exertion Gastrointestinal Gastrointestinal: Denies bloating, Denies dyspepsia and Denies heartburn Genitourinary Genitourinary: Denies dysuria, Reports urinary incontinence and Denies urinary urgency Neurologic Neurologic: Denies headache(s) Endocrine Endocrine: Reports system reviewed and no additional complaints, except as documented Hematologic/Lymphatic Hematologic/Lymphatic: Denies easy bruising and Denies lymphadenopathy [facility] Medical History Alcohol abuse (Acute) Alcoholic ketosis (Resolved) Allergic rhinitis (Chronic) Anemia (Chronic 12/20/16) Back pain, chronic (Chronic) CAP (community acquired pneumonia) (Resolved) Cataract (Chronic 11/07/15) Cervical radicular pain (Chronic) neck pain and DJD [facility] Chronic alcoholic gastritis (Chronic 10/12/17) pls refrain from alcohol Chronic diarrhea (Acute) Contusion of left little finger (Acute) Corneal ulcer, right (Inactive ~08/23/18) 08/23/18; UV-kb Depression (Chronic) Elev transaminase/LDH (Chronic) due to alcohol Fall (Acute) Falling (Acute) Genital herpes simplex (Chronic) recurrent gential; suppressive Valtrex GERD (gastroesophageal reflux disease) (Chronic) GI bleed (Resolved 12/20/16) Headache (Resolved) Hyperlipidemia (Chronic) Hypertension (Chronic) high today; she will check readings at home 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 Multiple rib fractures (Resolved) 03/11/19 [facility] [place]-cardiac chest pain (Resolved 09/21/16[place] [facility] [place] Osteoarthritis (Chronic) Osteopenia (Chronic) 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) Peripheral edema (Acute) Pleural effusion on left (Resolved) 03/11/19 [facility] Right rib fracture (Resolved) Sciatica (Chronic) right, epidural injuections [facility] Tendinitis of left rotator cuff (Inactive) Tubular adenoma of colon (Chronic 01/28/17) Urinary incontinence (Chronic) 01/24/13 [place] [facility] [place] Wernicke encephalopathy (Chronic) Surgical History Bladder Surgery suspension Colonoscopy - MAC (01/28/17) EGD - MAC (12/20/16) History of bilateral ligation of fallopian tubes (Inactive) Ligation of fallopian tube Repair bladder injury, simple Family History Mother No problems noted. Father , DROWNED at age 50. No problems noted. Sister Personal history of malignant neoplasm MELANOMA Sister No problems noted. Grandfather Personal history of malignant neoplasm STOMACH Grandfather Personal history of malignant neoplasm PROSTATE Grandmother Heart disease AR Acute ill-defined cerebrovascular disease Grandmother Personal history of malignant neoplasm UTERINE Aunt , AR Heart disease AR Aunt , AR Heart disease Brother No problems noted. Social History Smoking/Tobacco Use Status: Former Tobacco Use Alcohol Intake: current Alcohol Intake frequency: 3 or more drinks per day Alcohol type: hard liquor Drug use: Never Substance use type: does not use Details: states last drink was Current gender identity: female Do you feel safe at home: Yes Do you feel safe in your relationship?: Yes Additional Social history: Meds Home Medications and Allergies Home Medications Medication Instructions Recorded Confirmed Type folic acid 1 mg PO DAILY #14 tab 08/11/18 04/13/20 Rx Refresh Plus 1 drp OU Q4H WHILE AWAKE #30 each 06/20/19 04/13/20 Rx venlafaxine 150 mg 150 mg PO DAILY #30 cap 06/27/19 04/13/20 Rx capsule,extended release 24 hr venlafaxine 37.5 mg 37.5 mg PO DAILY #30 cap 06/27/19 04/13/20 Rx capsule,extended release 24 hr amlodipine 10 mg tablet 10 mg PO DAILY #90 tab 06/28/19 04/13/20 Rx magnesium oxide 400 mg PO BID #180 cap 07/17/19 04/13/20 Rx bisacodyl 10 mg PO .q72h prn PRN #10 tab 08/19/19 04/13/20 Rx food supplemt, lactose-reduced 414 ml PO DAILY #89863 ml 08/24/19 04/13/20 Rx pantoprazole 40 mg tablet,delayed 40 mg PO DAILY #90 tab 08/24/19 04/13/20 Rx release gabapentin 300 mg capsule 300 mg PO BID #90 cap 08/28/19 04/13/20 Rx hydrochlorothiazide 12.5 mg tablet 12.5 mg PO DAILY #90 tab 08/28/19 04/13/20 Rx metoprolol tartrate 50 mg tablet 50 mg PO BID #180 tab 08/28/19 04/13/20 Rx sennosides 8.6 mg tablet 8.6 mg PO BID #180 tab 08/28/19 04/13/20 Rx meclizine 25 mg tablet 25 mg PO TID PRN #30 tab 09/14/19 04/13/20 Rx multivitamin 1 tab PO DAILY #90 tab 09/14/19 04/13/20 Rx potassium chloride 10 mEq 10 meq PO DAILY #90 tab 09/14/19 04/13/20 Rx tablet,extended release(part/cryst) loperamide 2 mg PO Q4H PRN #20 cap 11/03/19 04/13/20 Rx promethazine 25 mg PO Q6H PRN #10 tab 11/03/19 04/13/20 Rx dicyclomine 10 mg capsule 10 mg PO QID PRN #40 cap 11/06/19 04/13/20 Rx sucralfate 1 gram tablet 1 g PO AC & HS #120 tab 11/06/19 04/13/20 Rx thiamine mononitrate (vit B1) 100 mg PO DAILY #10 tab 11/23/19 04/13/20 Rx [Vitamin B-1 (mononitrate)] prochlorperazine maleate 10 mg PO TID PRN #7 tab 01/02/20 04/13/20 Rx [Compazine] ipratropium 0.5 mg-albuterol 3 mg 3 ml IH QID PRN #90 ml 01/04/20 04/13/20 Rx (2.5 mg base)/3 mL nebulization soln ondansetron HCl [Zofran] 4 mg PO Q8H #12 tab 02/07/20 04/13/20 Rx fluticasone propionate 50 1 spray NS daily prn #9.9 ml 03/25/20 04/13/20 Rx mcg/actuation nasal spray,suspension Allergies Allergy/AdvReac Type Severity Reaction Status Date / Time Penicillins Allergy Mild Rash Verified 04/13/20 17:50 ramipril Allergy Unknown ITCHING Verified 04/13/20 17:50 meperidine [From Demerol] AdvReac Severe Nausea Verified 04/13/20 17:50 bupropion AdvReac Mild GI upset Verified 04/13/20 17:50 AMBER Inhibitors AdvReac Unknown COUGH Verified 04/13/20 17:50 alendronate sodium AdvReac Unknown GI Distress Verified 04/13/20 17:50 clarithromycin AdvReac Unknown intolerant Verified 04/13/20 17:50 paroxetine AdvReac Unknown Diarrhea Verified 04/13/20 17:50 Exam Const General: cooperative, comfortable and no acute distress Orientation: alert and oriented x3 HENMT Head: normocephalic and atraumatic Resp Effort & Inspection: normal respiratory effort Auscultation: clear to auscultation bilaterally Cardio Rate: regular rate Rhythm: regular rhythm Heart Sounds: no gallops, no murmurs and no rubs GI Inspection: normal to inspection Palpation: soft, no hepatosplenomegaly and nontender Auscultation: normal bowel sounds Results Labs Result diagrams: 04/13/20 18:12 04/13/20 18:12 Labs: Laboratory Results - last 24 hr 04/13/20 04/13/20 04/13/20 18:12 18:12 18:12 WBC 5.70 RBC 3.36 L Hgb 9.3 L Hct 29.9 L MCV 89.0 MCH 27.7 MCHC 31.1 L RDW 19.9 H Plt Count 289 MPV 8.8 Immature Gran % 0.4 Neutrophils % 79.5 Lymphocytes % 10.9 Monocytes % 8.8 Eosinophils % 0.0 Basophils % 0.4 Absolute Neutrophils 4.54 Absolute Lymphocytes 0.62 L Absolute Monocytes 0.50 Absolute Eosinophils 0.00 Absolute Basophils 0.02 Sodium 139 Potassium 3.3 L Chloride 99 Carbon Dioxide 28.6 Anion Gap 11.4 H BUN 12 Creatinine 1.00 Estimated GFR/1.73 m2 54.35 Glucose 169 H Calcium 10.0 Magnesium 1.5 L Total Bilirubin 1.0 AST 61 H ALT 52 Alkaline Phosphatase 140 H Troponin I < 0.05 Total Protein 6.9 Albumin 3.3 L Ethyl Alcohol < 3.0 Last Vital Signs Temp 97.9 F 04/14/20 03:25 Pulse 71 04/14/20 03:25 Resp 17 04/14/20 03:25 BP 150/90 H 04/14/20 03:25 Pulse Ox 93 L 04/14/20 03:25 COVID-19 Screening Have you,or household,traveled outside [place] in last 14 days?: No Had IN PERSON contact w/suspected or confirmed C-19 person: No
[2020-04-14 07:15] LABS: Anion Gap 7.9 mmol/L (3-11); BUN 6 mg/dL (7-18); CO2 28.1 mmol/L (21.0-32.0); CREATININE 0.69 mg/dL (0.55-1.02); Calcium 8.6 mg/dL (8.5-10.1); Chloride 99 mmol/L (98-107); Glucose 115 mg/dL (74-106); Potassium 3.6 mmol/L (3.5-5.1); Sodium 135 mmol/L (136-145)
[2020-04-14 07:29] VITALS: O2SAT 94
[2020-04-14 07:58] VITALS: BP 130/61; PULSE 75; RESP 18; TEMP 36.6; O2SAT 93
--- NOTE | 2020-04-14 08:00 | DI.RAD_ITS ---
EXAM: XR CHEST 2V PA LATERAL CLINICAL HISTORY: Mulitple rib fractures R 7-10 TECHNIQUE: 2D digital imaging was performed. COMPARISON: CR,XR XR ABD FLAT UPRIGHT PA CHEST from 02/07/[address] CHEST/ABD/PEL W from 04/13/2020 CT T/L SPINE RECONS from 04/13/2020 CT T/L SPINE RECONS from 04/13/[address] CHEST/ABD/PEL W from 04/13/2020 FINDINGS: The heart is mildly enlarged. The aorta is tortuous. Multiple bilateral rib fractures are noted. No infiltrate or pneumothorax is seen. Are small bilateral pleural effusions seen on the lateral vie w. IMPRESSION: Small bilateral pleural effusions.
--- NOTE | 2020-04-14 08:07 | INITIAL_ITS ---
- If Service Date Differs Date of service: 04/14/20 Time of Service: 08:07 Care Management Initial Assess REASON FOR HOSPITALIZATION:: Multiple rib fractures, frequent falls, ETOH use and dependency PAST MEDICAL HISTORY/PAST SURGICAL HISTORY:: Medical History . Alcohol abuse (Chronic). Alcoholic ketosis (Resolved). Allergic rhinitis (Chronic). Anemia (Chronic 12/20/16). Back pain, chronic (Chronic). CAP (community acquired pneumonia) (Resolved). Cataract (Chronic 11/07/15). Cervical radicular pain (Chronic). neck pain and DJD. [facility]. Chronic alcoholic gastritis (Chronic 10/12/17). pls refrain from alcohol. Corneal ulcer, right (Inactive ~08/23/18). 08/23/18; [facility]. Depression (Chronic). Elev transaminase/LDH (Chronic). due to alcohol. Fall (Acute). Falling (Chronic). Genital herpes simplex (Chronic). recurrent gential; suppressive Valtrex. GERD (gastroesophageal reflux disease) (Chronic). GI bleed (Resolved 12/20/16). Headache (Resolved). Hyperlipidemia (Chronic). Hypertension (Chronic). high today; she will check readings at home. Macrocytosis (Chronic 09/26/14). due to alcohol. Multiple rib fractures (Resolved). 03/11/19 [facility]. Non-cardiac chest pain (Resolved 09/21/16). [facility] [place] NEGATIVE MP. Osteoarthritis (Chronic). Osteopenia (Chronic). 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). Peripheral edema (Acute). Pleural effusion on left (Resolved). 03/11/19 [facility]. Right rib fracture (Resolved). Sciatica (Chronic). right, epidural injuections. [facility]. Tendinitis of left rotator cuff (Inactive). Tubular adenoma of colon (Chronic 01/28/17). Urinary incontinence (Chronic). 01/24/13 urethral suspension and sling at [facility] [place]. (bladder suspension 1991). Wernicke encephalopathy (Chronic). Surgical History . Bladder Surgery. suspension. Colonoscopy - MAC (01/28/17). EGD - MAC (12/20/16). History of bilateral ligation of fallopian tubes (Inactive). Ligation of fallopian tube. Repair bladder injury, simple PREVIOUS FUNCTIONAL STATUS/SOCIAL/FAMILY SUPPORTS:: Leticia lives alone in [place], [place] she states she does not have a caregiver at this time. Leticia uses [facility] for transportation, she has minimal community supports and states she uses alcohol on a daily basis. CURRENT FUNCTIONAL STATUS:: Leticia is alert and engaged with CM during assessment. She states her caregiver has returned and she is going into the home three times a week for 2 hours a day. Leticia states she would like home health services, she would like PT to help her meet her goals. She wants to be able to ambulate outside at home. CM contacted home health and requested services and sent a request for face to face. Leticia states the pain has improved since the injection she received this morning from anesthsia. Leticia is planning on returning home today if her pain is well controlled. ADVANCE DIRECTIVES:: DNR/COLST on file dwayne Avery is agent Has patient been provided with info about the portal/API?: Yes Did the patient sign up for the portal?: Yes (Enrolled ) CODE STATUS:: DNR/DNI INSURANCE COVERAGE / FINANCIAL ISSUES:: [employer] [facility] and [employer] assist 47% CURRENT HOME/COMMUNITY SERVICES/EQUIPMENT:: Private caregiver three times a week for two hours a day, paid for by her son. PRIMARY CARE PHYSICIAN:: Lavelle Galindo POTENTIAL DISCHARGE NEEDS:: Follow up primary care and resumption of home health services. PATIENT/FAMILY EDUCATION NEEDS:: Discharge plan, limitations, follow up plan, Ask Me Three ANTICIPATED BARRIERS TO DISCHARGE:: None TRANSPORTATION:: Via [facility] at time of discharge. PLAN:: Leticia is being monitored, status post injection for pain control. She will likely return home today, CM will coordinate [facility] when she is ready for discharge. Home Health PT to be ordered at time of discharge.
[2020-04-14] MEDS: Venlafaxine 37.5 MG CAPCR PO (08:36)
[2020-04-14] MEDS: Gabapentin 300 MG CAP PO (08:36)
[2020-04-14] MEDS: hydroCHLOROthiazide 12.5 MG TAB PO (08:36)
[2020-04-14] MEDS: Venlafaxine 150 MG CAPCR PO (08:36)
[2020-04-14] MEDS: Thiamine 100 MG TAB PO (08:37)
[2020-04-14] MEDS: Folic Acid 1 MG TAB PO (08:37)
[2020-04-14] MEDS: amLODIPine 10 MG TAB PO (08:37)
[2020-04-14] MEDS: Pantoprazole 40 MG TABCR PO (08:37)
[2020-04-14] MEDS: Metoprolol 50 MG TAB PO (08:37)
[2020-04-14] MEDS: Sucralfate 1 GM TAB PO ×3 (08:37→15:36)
[2020-04-14] MEDS: Potassium Chloride 10 MEQ TABCR PO (08:37)
[2020-04-14] MEDS: Magnesium Oxide 400 MG TAB PO (09:25)
[2020-04-14] MEDS: Refresh PLUS Eye Drops 0.4ml 1 EACH OU (10:41)
[2020-04-14 11:44] VITALS: BP 119/73; PULSE 73; RESP 18; TEMP 36.3; O2SAT 94
--- NOTE | 2020-04-14 13:22 | PDOC.HHF2F_ITS ---
Home Health Certification Home Health Certification: 1. Encounter Date and Reason I certify that LINDA CONROY was seen by Diandra Wells MD on 04/14/20 and that I had a [id number] encounter with this patient that meets the physician face to face encounter requirements. 2. Clinical Findings Supporting Skilled Need and Homebound Status I certify that home health services are medically necessary, include either intermittent group home and/or physical/speech therapy, and that this patient is homebound in that absences from the home require considerable and taxing effort and are infrequent or of short duration, or are attributable to the need to receive medical care. [X] (a) Attached documentation from encounter provides clinical findings supporting skilled need and homebound status (including what assistance patient requires to leave the home). The encounter with the patient was in whole, or in part, for the following medical condition, which is the primary reason for home health care: MULTIPLE RIB FRACTURES, FALL AT HOME, HISTORY OF A Penitentiary: Physical Therapy: for safety check Speech Therapy: Homebound: 3. Certification and Authentication I certify that I composed the above information based on my clinical judgement relating to this patient's medical condition and, if applicable, clinical findings communicated to me by the NPP or inpatient physician who performed the Home Health Referral. All further orders will be obtained through (Community Based Physician - PCP)
--- NOTE | 2020-04-14 13:24 | DSE_ITS ---
Documented by User: Diandra Wells MD 04/15/20 06:51 Date of service: 04/14/20 Time of Service: 13:24 DS: Diagnosis Discharge Diagnosis (1) Multiple fractures of ribs: Status: Acute (2) Hypoxia: Status: Acute Discharge Plan Disposition Patient Disposition: HOME W/HOME HEALTH SERVICE Condition: Fair Discharge Details Chief Complaint: Chest/Rib Clinical Impression: Multiple fractures of ribs, Hypoxia, History of alcohol abuse Reason For Visit: MULTIPLE RIB FRACTURES, FALL AT HOME, HISTORY OF A Admit Date/Time: 04/13/20 19:39 Admit Provider: Diandra Wells Attending Provider: Diandra Wells Primary Care Provider: Lavelle Galindo ED Provider: Megan Foster Hospital Course Hospital Course: Mrs. Garza was admitted last night for pain control for her rib fractures that she suffered last Tuesday. She states that she fell out of her recliner when one of its legs broke. Anesthesia was consulted for a rib block the next morning which they were able to do. The patients pain was well controlled and she was only on Toradol. Patient is discharged home with PT. Patient requests a PT home safety check. Home Meds and New Rx's Prescriptions: New ibuprofen 400 mg tablet 400 mg PO Q6H PRNQty: 60 RF: 3 Continued meclizine 25 mg tablet 25 mg PO TID PRN (Reason: dizziness) Qty: 30 RF: 1 venlafaxine 37.5 mg capsule,extended release 24hr 37.5 mg PO DAILY Qty: 30 RF: 11 venlafaxine 150 mg capsule,extended release 24hr 150 mg PO DAILY Qty: 30 RF: 11 hydrochlorothiazide 12.5 mg tablet 12.5 mg PO DAILY Qty: 90 RF: 3 gabapentin 300 mg capsule 300 mg PO BID Qty: 90 RF: 5 metoprolol tartrate 50 mg tablet 50 mg PO BID Qty: 180 RF: 3 sennosides [Senokot] 8.6 mg tablet 8.6 mg PO BID Qty: 180 RF: 3 magnesium oxide 400 mg magnesium capsule 400 mg PO BID Qty: 180 RF: 3 amlodipine 10 mg tablet 10 mg PO DAILY Qty: 90 RF: 3 pantoprazole 40 mg tablet,delayed release (DR/EC) 40 mg PO DAILY Qty: 90 RF: 3 Ensure Active High Protein Liquid 414 ml PO DAILY Qty: 19261 RF: 11 multivitamin [Multiple Vitamins] Tablet 1 tab PO DAILY Qty: 90 RF: 3 potassium chloride [Klor-Con M10] 10 mEq tablet,ER particles/crystals 10 meq PO DAILY Qty: 90 RF: 3 dicyclomine 10 mg capsule 10 mg PO QID PRN (Reason: belly pain) Qty: 40 RF: 0 sucralfate 1 gram tablet 1 g PO AC & HS Qty: 120 RF: 5 ipratropium-albuterol 0.5 mg-3 mg(2.5 mg base)/3 mL solution for nebulization 3 ml IH QID PRN (Reason: shortness of breath) Qty: 90 RF: 3 fluticasone propionate 50 mcg/actuation spray,suspension 1 spray NS daily prn Qty: 9.9 RF: 2 folic acid 1 mg Tablet 1 mg PO DAILY Qty: 14 RF: 0 Refresh Plus 0.5 % Dropperette 1 drp OU Q4H WHILE AWAKE Qty: 30 RF: 0 thiamine mononitrate (vit B1) [Vitamin B-1 (mononitrate)] 100 mg Tablet 100 mg PO DAILY Qty: 10 RF: 0 ondansetron HCl [Zofran] 4 mg tablet 4 mg PO Q8H Qty: 12 RF: 0 Discharge Instructions Additional Instructions: Keep an ice bag on the incision. 20 minutes on and 20 minutes off. Ice keeps the swelling down and swelling causes pain. Make sure you wrap the ice pack in a towel and don't apply directly to the skin. -No driving -it is VERY important that you take the carafate every 6hrs to prevent an ulcer. -Follow-up with Dr. Wells -chest Xray prior to the appt -no straining to move bowels -if you do not move your bowels daily take a dose of OTC milk of magnesia -It is ok to shower. Shower daily -Protein supplements daily. You may find that your appetite is smaller. Eat 3-6 small meals throughout the day. It is important to drink lots of water after surgery, 6-10 glasses a day. -If you were given an incentive spirometry (breathing product engineering manager?), continue to do this 10x/hour while awake. -We do want you up walking, at least 5-6 times per day. This is very important to prevent pneumonia and blood clots. You can climb stairs, take them slowly. -No lifting over 5 pounds. This is very important to avoid developing a hernia in your incision. -You may find that you are very tired after surgery- this is normal. -please do not smoke for a minimum of 72 hours after surgery. Stand Alone Forms: Nursing Discharge Form Referrals: Diandra Wells MD [ [facility] STAFF [facility]YSICIAN] - 04/29/20 8:30 am Activity:: walk Equipment/Supplies:: No Equipment Needed Diet:: As Tolerated Discharge Orders Discharge Orders: Discharge Order (Routine); Ordered 04/14/20 Ordered By: Margaret Boss Discharge Data Discharge Date/Time-TO BE ENTERED AT DEPARTURE: 04/14/20 16:00 DS: Data Vitals/I&O Vitals and I&O: Vital Signs Temperature 97.3 F L 04/14/20 11:44 Temperature Source Tympanic 04/14/20 11:44 Pulse 73 04/14/20 11:44 Pulse Rhythm Regular 04/14/20 07:49 Pulse 97 H 04/13/20 20:01 Respiratory Rate 18 04/14/20 11:44 Respiratory Effort Non-Labored 04/14/20 07:49 Respiratory Depth Normal 04/14/20 07:49 Respiratory Pattern Normal 04/14/20 07:49 Blood Pressure 119/73 04/14/20 11:44 Blood Pressure Mean 104 04/13/20 20:01 Blood Pressure Position Sitting 04/13/20 17:42 Pulse Oximetry 94 L 04/14/20 11:44 Oxygen Delivery Method Room Air 04/14/20 11:44 Oxygen Flow Rate 0 04/14/20 11:44 Pain Level 4 04/14/20 11:44 Comment 04/14/20 03:25 Intake & Output 04/13/20 04/14/20 04/14/20 23:59 11:59 23:59 Intake Total 1060 / 1060 1479.167 / 1479.167 Output Total 200 / 200 Balance 860 / 860 1479.167 / 1479.167 Weight 140 lb 0.002 oz Intake: IV 1060 / 1060 1379.167 / 1379.167 Oral 100 / 100 Output: Urine 200 / 200 Other: Urine Color Yellow Yellow Urine Appearance Clear Clear Urine Odor Normal Voiding Methods Bedside Commode Diaper Incontinent Data Completed and Pending Labs on day of discharge: Labs from last 24 hours 04/14/20 04/13/20 04/13/20 06:44 20:12 18:12 WBC RBC Hgb Hct MCV MCH MCHC RDW Plt Count MPV Immature Gran % Neutrophils % Lymphocytes % Monocytes % Eosinophils % Basophils % Absolute Neutrophils Absolute Lymphocytes Absolute Monocytes Absolute Eosinophils Absolute Basophils Sodium 135 L Potassium 3.6 Chloride 99 Carbon Dioxide 28.1 Anion Gap 7.9 BUN 6 L Creatinine 0.69 Estimated GFR/1.73 m2 >= 60.00 Glucose 115 H Calcium 8.6 Magnesium Total Bilirubin AST ALT Alkaline Phosphatase Troponin I Total Protein Albumin Ethyl Alcohol < 3.0 COVID-19 PCR Pending Nasopharyn COVID-19 PCR Pending Ref Test Perform Site Pending 04/13/20 04/13/20 18:12 18:12 WBC 5.70 RBC 3.36 L Hgb 9.3 L Hct 29.9 L MCV 89.0 MCH 27.7 MCHC 31.1 L RDW 19.9 H Plt Count 289 MPV 8.8 Immature Gran % 0.4 Neutrophils % 79.5 Lymphocytes % 10.9 Monocytes % 8.8 Eosinophils % 0.0 Basophils % 0.4 Absolute Neutrophils 4.54 Absolute Lymphocytes 0.62 L Absolute Monocytes 0.50 Absolute Eosinophils 0.00 Absolute Basophils 0.02 Sodium 139 Potassium 3.3 L Chloride 99 Carbon Dioxide 28.6 Anion Gap 11.4 H BUN 12 Creatinine 1.00 Estimated GFR/1.73 m2 54.35 Glucose 169 H Calcium 10.0 Magnesium 1.5 L Total Bilirubin 1.0 AST 61 H ALT 52 Alkaline Phosphatase 140 H Troponin I < 0.05 Total Protein 6.9 Albumin 3.3 L Ethyl Alcohol COVID-19 PCR Nasopharyn COVID-19 PCR Ref Test Perform Site [facility] Medical History (Updated 04/14/20 @ 14:16 by Margaret Boss DO) Alcohol abuse (Acute) Alcoholic ketosis (Resolved) Allergic rhinitis (Chronic) Anemia (Chronic 12/20/16) Back pain, chronic (Chronic) CAP (community acquired pneumonia) (Resolved) Cataract (Chronic 11/07/15) Cervical radicular pain (Chronic) neck pain and DJD [facility] Chronic alcoholic gastritis (Chronic 10/12/17) pls refrain from alcohol Chronic diarrhea (Acute) Contusion of left little finger (Acute) Corneal ulcer, right (Inactive ~08/23/18) 08/23/18; [facility]- Depression (Chronic) Elev transaminase/LDH (Chronic) due to alcohol Fall (Acute) Fall as cause of accidental injury at home as place of occurrence (Acute) Falling (Acute) Genital herpes simplex (Chronic) recurrent gential; suppressive Valtrex GERD (gastroesophageal reflux disease) (Chronic) GI bleed (Resolved 12/20/16) Headache (Resolved) Hyperlipidemia (Chronic) Hypertension (Chronic) high today; she will check readings at home 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 Multiple rib fractures (Resolved) 03/11/19 [facility] Non-cardiac chest pain (Resolved 09/21/16) [facility] [place] 09/21/16 NEGATIVE MP Osteoarthritis (Chronic) Osteopenia (Chronic) 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) Peripheral edema (Acute) Pleural effusion on left (Resolved) 03/11/19 [facility] Right rib fracture (Resolved) Sciatica (Chronic) right, epidural injuections [facility] Tendinitis of left rotator cuff (Inactive) Tubular adenoma of colon (Chronic 01/28/17) Urinary incontinence (Chronic) 01/24/13 urethral suspension and sling at [facility] [place] (bladder suspension 1991) Wernicke encephalopathy (Chronic) Surgical History Bladder Surgery suspension Colonoscopy - MAC (01/28/17) EGD - MAC (12/20/16) History of bilateral ligation of fallopian tubes (Inactive) Ligation of fallopian tube Repair bladder injury, simple Family History Mother No problems noted. Father , DROWNED at age 50. No problems noted. Sister Personal history of malignant neoplasm MELANOMA Sister No problems noted. Grandfather Personal history of malignant neoplasm STOMACH Grandfather Personal history of malignant neoplasm PROSTATE Grandmother Heart disease [place] Acute ill-defined cerebrovascular disease Grandmother Personal history of malignant neoplasm UTERINE Aunt , [place] Heart disease [place] Aunt , [place] Heart disease Brother No problems noted. Social History Smoking/Tobacco Use Status: Former Tobacco Use Alcohol Intake: current Alcohol Intake frequency: 3 or more drinks per day Alcohol type: hard liquor Drug use: Never Substance use type: does not use Details: states last drink was Current gender identity: female Do you feel safe at home: Yes Do you feel safe in your relationship?: Yes Additional Social history: Documented by User: Margaret Kimberly Boss DO 04/14/20 14:18 Discharge Plan Disposition Patient Disposition: HOME W/HOME HEALTH SERVICE Condition: Fair Discharge Details Chief Complaint: Chest/Rib Clinical Impression: Multiple fractures of ribs, Hypoxia, History of alcohol abuse Reason For Visit: MULTIPLE RIB FRACTURES, FALL AT HOME, HISTORY OF A Admit Date/Time: 04/13/20 19:39 Admit Provider: Diandra Wells Attending Provider: Diandra Wells Primary Care Provider: Lavelle Galindo ED Provider: Megan Foster Hospital Course Hospital Course: Mrs. Garza was admitted last night for pain control for her rib fractures that she suffered last Tuesday. She states that she fell out of her recliner when one of its legs broke. Anesthesia was consulted for a rib block the next morning which they were able to do. The patients pain was well controlled and she was only on Toradol. Patient is discharged home with PT. Patient requests a PT home safety check. Home Meds and New Rx's Prescriptions: New ibuprofen 400 mg tablet 400 mg PO Q6H PRNQty: 60 RF: 3 Continued meclizine 25 mg tablet 25 mg PO TID PRN (Reason: dizziness) Qty: 30 RF: 1 venlafaxine 37.5 mg capsule,extended release 24hr 37.5 mg PO DAILY Qty: 30 RF: 11 venlafaxine 150 mg capsule,extended release 24hr 150 mg PO DAILY Qty: 30 RF: 11 hydrochlorothiazide 12.5 mg tablet 12.5 mg PO DAILY Qty: 90 RF: 3 gabapentin 300 mg capsule 300 mg PO BID Qty: 90 RF: 5 metoprolol tartrate 50 mg tablet 50 mg PO BID Qty: 180 RF: 3 sennosides [Senokot] 8.6 mg tablet 8.6 mg PO BID Qty: 180 RF: 3 magnesium oxide 400 mg magnesium capsule 400 mg PO BID Qty: 180 RF: 3 amlodipine 10 mg tablet 10 mg PO DAILY Qty: 90 RF: 3 pantoprazole 40 mg tablet,delayed release (DR/EC) 40 mg PO DAILY Qty: 90 RF: 3 Ensure Active High Protein Liquid 414 ml PO DAILY Qty: 72011 RF: 11 multivitamin [Multiple Vitamins] Tablet 1 tab PO DAILY Qty: 90 RF: 3 potassium chloride [Klor-Con M10] 10 mEq tablet,ER particles/crystals 10 meq PO DAILY Qty: 90 RF: 3 dicyclomine 10 mg capsule 10 mg PO QID PRN (Reason: belly pain) Qty: 40 RF: 0 sucralfate 1 gram tablet 1 g PO AC & HS Qty: 120 RF: 5 ipratropium-albuterol 0.5 mg-3 mg(2.5 mg base)/3 mL solution for nebulization 3 ml IH QID PRN (Reason: shortness of breath) Qty: 90 RF: 3 fluticasone propionate 50 mcg/actuation spray,suspension 1 spray NS daily prn Qty: 9.9 RF: 2 folic acid 1 mg Tablet 1 mg PO DAILY Qty: 14 RF: 0 Refresh Plus 0.5 % Dropperette 1 drp OU Q4H WHILE AWAKE Qty: 30 RF: 0 thiamine mononitrate (vit B1) [Vitamin B-1 (mononitrate)] 100 mg Tablet 100 mg PO DAILY Qty: 10 RF: 0 ondansetron HCl [Zofran] 4 mg tablet 4 mg PO Q8H Qty: 12 RF: 0 Discharge Instructions Additional Instructions: Keep an ice bag on the incision. 20 minutes on and 20 minutes off. Ice keeps the swelling down and swelling causes pain. Make sure you wrap the ice pack in a towel and don't apply directly to the skin. -No driving -it is VERY important that you take the carafate every 6hrs to prevent an ulcer. -Follow-up with Dr. Wells -chest Xray prior to the appt -no straining to move bowels -if you do not move your bowels daily take a dose of OTC milk of magnesia -It is ok to shower. Shower daily -Protein supplements daily. You may find that your appetite is smaller. Eat 3-6 small meals throughout the day. It is important to drink lots of water after surgery, 6-10 glasses a day. -If you were given an incentive spirometry (breathing product engineering manager?), continue to do this 10x/hour while awake. -We do want you up walking, at least 5-6 times per day. This is very important to prevent pneumonia and blood clots. You can climb stairs, take them slowly. -No lifting over 5 pounds. This is very important to avoid developing a hernia in your incision. -You may find that you are very tired after surgery- this is normal. -please do not smoke for a minimum of 72 hours after surgery. Stand Alone Forms: Nursing Discharge Form Referrals: Diandra Wells MD [ [facility] ST[facility]FF PHYSICIAN] - 04/29/20 8:30 am Activity:: walk Equipment/Supplies:: No Equipment Needed Diet:: As Tolerated Discharge Orders Discharge Orders: Discharge Order (Routine); Ordered 04/14/20 Ordered By: Margaret Boss Discharge Data Discharge Date/Time-TO BE ENTERED AT DEPARTURE: 04/14/20 16:00 DS: Summary Status at Discharge Functional status at discharge: independent ambulation Overall status at discharge: patient is back to baseline Mental Status: mental status grossly normal Speech and Movement: pressured speech Mood: congruent mood Affect: normal affect Exam Const General: cooperative, comfortable and no acute distress Nutritional Appearance: well nourished Orientation: alert, awake and oriented x3 HENMT Other: c/o dry mouth ectropion R eyelid. no jaundice Resp Effort & Inspection: normal respiratory effort and able to speak in complete sentences Other: non productive cough Cardio Rate: regular rate Rhythm: regular rhythm GI Other: no pain soft Skin Other: bruising right arm/flank Psych Mental Status: mental status grossly normal Speech and Movement: pressured speech Mood: congruent mood Affect: normal affect [facility] Medical History (Updated 04/14/20 @ 14:16 by Margaret M Stoiber, DO) Alcohol abuse (Acute) Alcoholic ketosis (Resolved) Allergic rhinitis (Chronic) Anemia (Chronic 12/20/16) Back pain, chronic (Chronic) CAP (community acquired pneumonia) (Resolved) Cataract (Chronic 11/07/15) Cervical radicular pain (Chronic) neck pain and DJD [facility] Chronic alcoholic gastritis (Chronic 10/12/17) pls refrain from alcohol Chronic diarrhea (Acute) Contusion of left little finger (Acute) Corneal ulcer, right (Inactive ~08/23/18) 08/23/18; [facility] Depression (Chronic) Elev transaminase/LDH (Chronic) due to alcohol Fall (Acute) Fall as cause of accidental injury at home as place of occurrence (Acute) Falling (Acute) Genital herpes simplex (Chronic) recurrent gential; suppressive Valtrex GERD (gastroesophageal reflux disease) (Chronic) GI bleed (Resolved 12/20/16) Headache (Resolved) Hyperlipidemia (Chronic) Hypertension (Chronic) high today; she will check readings at home 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 Multiple rib fractures (Resolved) 03/11/19 [facility] Non-cardiac chest pain (Resolved 09/21/16) [facility] [place] 09/21/16 NEGATIVE MP Osteoarthritis (Chronic) Osteopenia (Chronic) 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) Peripheral edema (Acute) Pleural effusion on left (Resolved) 03/11/19 [facility] Right rib fracture (Resolved) Sciatica (Chronic) right, epidural injuections [facility] Tendinitis of left rotator cuff (Inactive) Tubular adenoma of colon (Chronic 01/28/17) Urinary incontinence (Chronic) 01/24/13 urethral suspension and sling at [facility] [place] (bladder suspension 1991) Wernicke encephalopathy (Chronic) Surgical History Bladder Surgery suspension Colonoscopy - MAC (01/28/17) EGD - MAC (12/20/16) History of bilateral ligation of fallopian tubes (Inactive) Ligation of fallopian tube Repair bladder injury, simple Family History Mother No problems noted. Father , DROWNED at age 50. No problems noted. Sister Personal history of malignant neoplasm MELANOMA Sister No problems noted. Grandfather Personal history of malignant neoplasm STOMACH Grandfather Personal history of malignant neoplasm PROSTATE Grandmother Heart disease [place] Acute ill-defined cerebrovascular disease Grandmother Personal history of malignant neoplasm UTERINE Aunt , [place] Heart disease [place] Aunt , [place] Heart disease Brother No problems noted. Social History Smoking/Tobacco Use Status: Former Tobacco Use Alcohol Intake: current Alcohol Intake frequency: 3 or more drinks per day Alcohol type: hard liquor Drug use: Never Substance use type: does not use Details: states last drink was Current gender identity: female Do you feel safe at home: Yes Do you feel safe in your relationship?: Yes Additional Social history:
[2020-04-14 14:45] LABS: COVID-19 RT-PCR UVMMC Result Negative (Negative)
== END 2020-04-14 16:00 | disposition home health service (06) ==
LOC: ER 20:16 → MS 20:23
PROVIDERS: Admitting Provider Surgery; Emergency Provider Physician Assistant; PCP Family Medicine; Visit Provider Surgery
DX: S22.41XA Multiple fractures of ribs, right side, initial encounter for closed fracture (principal); R09.02 Hypoxemia; F10.10 Alcohol abuse, uncomplicated; Z79.899 Other long term (current) drug therapy; W07.XXXA Fall from chair, initial encounter; J30.9 Allergic rhinitis, unspecified; M47.22 Other spondylosis with radiculopathy, cervical region; K29.20 Alcoholic gastritis without bleeding; F32.9 Major depressive disorder, single episode, unspecified; K52.9 Noninfective gastroenteritis and colitis, unspecified; B00.9 Herpesviral infection, unspecified; K21.9 Gastro-esophageal reflux disease without esophagitis; E78.5 Hyperlipidemia, unspecified; I10 Essential (primary) hypertension; D75.89 Other specified diseases of blood and blood-forming organs; M19.90 Unspecified osteoarthritis, unspecified site; M54.31 Sciatica, right side; E51.2 Wernicke's encephalopathy; R32 Unspecified urinary incontinence
CPT/HCPCS: 36415; 74177; 76942; 80048; 80053; 96361; 96365; 99223; 99238; 99285; U0003; 70450; 71046; 71260; 72125; 72128; 72131; 80320; 83735; 84484; 85025; G0378; J1885; J3490

== ENCOUNTER 2020-04-19 13:28 | Emergency (ER) | payer OTHER, SELFPAY ==
[2020-04-19] VITALS (26 sets, daily range): BP systolic 119–127; BP diastolic 66–73; PULSE 67–71; RESP 15–39; TEMP 36.2–36.8; O2SAT 91–97
--- NOTE | 2020-04-19 13:30 | DI.CT_ITS ---
EXAM: CT CHEST/ABD/PEL W CLINICAL HISTORY: fall out of chair, r/o acute process TECHNIQUE: COMPARISON: CT CT ABDOMEN PELVIS W from 12/17/[address] CHEST/ABD/PEL W from 04/13/[address] THORACIC LUMBAR SPINE WO from 04/19/2020 FINDINGS: CT examination of the chest, abdomen, and pelvis was performed with intravenous infusion of 100 cc of Omnipaque 350. Examination is compared with prior examinations of April 13 and also of December 16t h. Multiple bilateral rib fractures are again noted, unchanged from April 13, predominantly old o n the left with some new rib fractures present on the right. No change. No new pneumothorax or pleu ral effusion. Nonspecific intrapulmonary radiodensities again noted, atelectasis most likely. A adry ewhat rounded focal radiodensity measuring 1-1.5 cm in diameter in the right lung apex should be foll owed as it has a somewhat spiculated appearance. Follow-up chest CT recommended in 2-3 weeks. No pulmonary embolus. No acute thoracic vascular injury. Hepatic steatosis noted. Unremarkable appearance of gallbladder and bile ducts. Unremarkable appear ance of spleen. Unremarkable appearance of the pancreas. Renal cysts again noted bilaterally, otherwise urinary tract structures unremarkable. Adrenals unrem arkable. Lobulated presacral mass again noted, unchanged from December 16 CT. No abdominal or pelvic adenopathy apart from the aforementioned lobulated presacral mass which could be labor union business representative of adenopathy. No focal bowel pathology identified. No evidence of obstruction. Reconstructions of thoracic and lumbar spine from initial CT data show no evidence of acute thoracic or lumbar spine fracture. IMPRESSION: No evidence of acute injury. Previously noted multiple rib fractures again seen from examination of A ugust . Lobulated presacral mass noted, unchanged from November 2019. Indeterminate right apical lung lesion noted, follow-up in 2-[address] weeks recommended with chest CT to milagro luate acute process versus neoplasm. RADIATION DOSE DELIVERED: Total DLP
--- NOTE | 2020-04-19 13:30 | DI.CT_ITS ---
EXAM: CT HEAD CERVICAL SPINE WO CLINICAL HISTORY: fall out of chair, r/o acute process TECHNIQUE: COMPARISON: CT CT HEAD CERVICAL SPINE WO from 04/13/2020 FINDINGS: CT examination of the cervical spine was performed. There are severe degenerative changes with a mod erate predominantly mid cervical kyphosis. No evidence of acute fracture or dislocation. Tracheolar yngeal structures appear intact. Noncontrast cranial CT was performed. There is moderate to severe generalized cerebral atrophy. The re is no evidence of acute intracranial hemorrhage, mass effect, or midline shift. The orbital and t emporal bone structures appear intact. Paranasal sinuses and mastoid air cells appear well aerated a s visualized. IMPRESSION: No evidence of acute cervical spine fracture. Severe DJD noted. No evidence of acute intracranial injury. RADIATION DOSE DELIVERED: 1,078.11mGy.cm Total DLP
--- NOTE | 2020-04-19 13:37 | ED.GENADUL_ITS ---
Discharge Plan Disposition Patient Disposition: HOME Condition: Stable Discharge Details Chief Complaint: GenMedical Clinical Impression: Fall at home, Rib pain on right side Primary Care Provider: Lavelle Galindo ED Provider: Megan Foster Home Meds and New Rx's Prescriptions: Continued meclizine 25 mg tablet 25 mg PO TID PRN (Reason: dizziness) Qty: 30 RF: 1 venlafaxine 37.5 mg capsule,extended release 24hr 37.5 mg PO DAILY Qty: 30 RF: 11 venlafaxine 150 mg capsule,extended release 24hr 150 mg PO DAILY Qty: 30 RF: 11 hydrochlorothiazide 12.5 mg tablet 12.5 mg PO DAILY Qty: 90 RF: 3 gabapentin 300 mg capsule 300 mg PO BID Qty: 90 RF: 5 metoprolol tartrate 50 mg tablet 50 mg PO BID Qty: 180 RF: 3 sennosides [Senokot] 8.6 mg tablet 8.6 mg PO BID Qty: 180 RF: 3 magnesium oxide 400 mg magnesium capsule 400 mg PO BID Qty: 180 RF: 3 amlodipine 10 mg tablet 10 mg PO DAILY Qty: 90 RF: 3 pantoprazole 40 mg tablet,delayed release (DR/EC) 40 mg PO DAILY Qty: 90 RF: 3 Ensure Active High Protein Liquid 414 ml PO DAILY Qty: 20102 RF: 11 multivitamin [Multiple Vitamins] Tablet 1 tab PO DAILY Qty: 90 RF: 3 potassium chloride [Klor-Con M10] 10 mEq tablet,ER particles/crystals 10 meq PO DAILY Qty: 90 RF: 3 dicyclomine 10 mg capsule 10 mg PO QID PRN (Reason: belly pain) Qty: 40 RF: 0 sucralfate 1 gram tablet 1 g PO AC & HS Qty: 120 RF: 5 ipratropium-albuterol 0.5 mg-3 mg(2.5 mg base)/3 mL solution for nebulization 3 ml IH QID PRN (Reason: shortness of breath) Qty: 90 RF: 3 fluticasone propionate 50 mcg/actuation spray,suspension 1 spray NS daily prn Qty: 9.9 RF: 2 celecoxib [Celebrex] 100 mg capsule 100 mg PO BID Qty: 20 RF: 0 folic acid 1 mg Tablet 1 mg PO DAILY Qty: 14 RF: 0 Refresh Plus 0.5 % Dropperette 1 drp OU Q4H WHILE AWAKE Qty: 30 RF: 0 thiamine mononitrate (vit B1) [Vitamin B-1 (mononitrate)] 100 mg Tablet 100 mg PO DAILY Qty: 10 RF: 0 ondansetron HCl [Zofran] 4 mg tablet 4 mg PO Q8H Qty: 12 RF: 0 ibuprofen 400 mg tablet 400 mg PO Q6H PRNQty: 60 RF: 3 Discharge Instructions Instructions: Rib Contusion (ED) Additional Instructions: Rest, ice, and elevate the affected area as much as possible. Alternate tylenol and motrin as needed and directed for pain. Follow-up with your primary care doctor in 1 week. Return to the emergency department with any worsening or new concerning symptoms. Discharge Data Discharge Date/Time-TO BE ENTERED AT DEPARTURE: 04/19/20 18:10 Discharge Physician: Megan Foster Medical Decision Making 74-year-old female well-known to the emergency department with multiple ED visits and multiple reports of falls related to alcohol abuse presents for right-sided rib pain after fall out of chair at home today. She appears nontoxic. She is answering questions appropriately. She has tende rness to her right lateral chest but no evidence of trauma on exam. Lungs are clear. Abdomen soft nontender. No midline spinal tenderness. Moving all extremities without deformity. Patient referred for labs and imaging which were all reviewed and negative for acute findings. Patient was able to drink and ambulate with assistance here. Patient cleared for discharge to home. Advised to follow up with the primary care doctor for re-evaluation. Usual and customary return precautions given prior to discharge. Medical Records Medical records reviewed: Yes I reviewed the patient's medical records. Imaging Data Radiologic Study: Radiologist's impression: CT Chest With Contrast Exam date and time: 04/19/2020 1:46 PM Age: 74 years old Clinical indication: Fall out of chair, R/O acute process TECHNIQUE: Imaging protocol: Computed tomography of the chest with intravenous contrast. Radiation optimization: All CT scans at this facility use at least one of these dose optimization techniques: automated exposure control; mA and/or kV adjustment per patient size (includes targeted exams where dose is matched to clinical indication); or iterative reconstruction. Contrast material: OMNIPAQUE 350; Contrast route: INTRAVENOUS (IV); COMPARISON: CT CHEST/ABD/PEL W 04/13/2020 6:30 PM FINDINGS: Lungs: Minimal atelectasis posterior right lower lobe. Bilateral superior lung linear parenchymal scarring or subsegmental collapse / atelectasis. Pleural space: Unremarkable. No pneumothorax. No pleural effusion. Heart: Unremarkable. No cardiomegaly. No pericardial effusion. Mediastinal space: Small hiatal hernia. Aorta: Unremarkable. No aortic aneurysm. Lymph nodes: Unremarkable. No enlarged lymph nodes. Bones/joints: No acute fracture. Impression. Compared to 04/13/2020, multiple old bilateral rib fractures. Old mild compression fracture of T12. Old fracture lateral right clavicle and proximal right humerus. Spinal degenerative changes. Soft tissues: Unremarkable. IMPRESSION: 1. No acute fracture. Impression. Compared to 04/13/2020, multiple old bilateral rib fractures. Old mild compression fracture of T12. Old fracture lateral right clavicle and proximal right humerus. 3. No pneumothorax or pleural fluid collection. 4. Minimal atelectasis posterior right lower lobe. 5. Small hiatal hernia. CT Abdomen And Pelvis With Contrast Exam date and time: 04/19/2020 1:46 PM Age: 74 years old Clinical indication: Fall out of chair, R/O acute process TECHNIQUE: Imaging protocol: Computed tomography of the abdomen and pelvis with intravenous contrast. Radiation optimization: All CT scans at this facility use at least one of these dose optimization techniques: automated exposure control; mA and/or kV adjustment per patient size (includes targeted exams where dose is matched to clinical indication); or iterative reconstruction. Contrast material: OMNIPAQUE 350; Contrast volume: 100 ml; Contrast route: INTRAVENOUS (IV); COMPARISON: CT CHEST/ABD/PEL W 04/13/2020 6:30 PM FINDINGS: Liver: Liver fatty infiltration. Gallbladder and bile ducts: Normal. No calcified stones. No ductal dilation. Pancreas: Normal. No ductal dilation. Spleen: Normal. No splenomegaly. Adrenals: Normal. No mass. Kidneys and ureters: Bilateral renal cortical cysts. No hydronephrosis or perinephric fluid collection. Stomach and bowel: Unremarkable. No obstruction. No mucosal thickening. Appendix: No evidence of appendicitis. Intraperitoneal space: Unremarkable. No free air. No significant fluid collection. Vasculature: Unremarkable. No abdominal aortic aneurysm. Lymph nodes: Unremarkable. No enlarged lymph nodes. Bladder: Unremarkable as visualized. Reproductive: Atrophic uterus and ovaries. Bones/joints: Spinal degenerative changes. Lumbar levoscoliosis. No acute fracture. Retrolisthesis of L5 with respect to L4. Soft tissues: Fat-containing inguinal and umbilical hernias. IMPRESSION: 1. No acute fracture. 2. No acute intra-abdominal or pelvic findings. CT Thoracic Spine Without Contrast Exam date and time: 04/19/2020 1:46 PM Age: 74 years old Clinical indication: Other: S/P fall, R/O acute fracture; Other: S/P fall, f/o acute fracture TECHNIQUE: Imaging protocol: Computed tomography images of the thoracic spine without contrast. Radiation optimization: All CT scans at this facility use at least one of these dose optimization techniques: automated exposure control; mA and/or kV adjustment per patient size (includes targeted exams where dose is matched to clinical indication); or iterative reconstruction. COMPARISON: CT chest, abdomen, pelvis 04/13/2020 FINDINGS: Vertebrae: Old mild compression fracture of T12. No acute fracture. Discs/Spinal canal/Neural foramina: Spinal degenerative changes. Other bones/joints: Old bilateral rib fractures. Soft tissues: Unremarkable. IMPRESSION: Compared to 04/13/2020, no acute fracture. CT Lumbar Spine Without Contrast Exam date and time: 04/19/2020 1:46 PM Age: 74 years old Clinical indication: Other: S/P fall, R/O acute fracture TECHNIQUE: Imaging protocol: Computed tomography images of the lumbar spine without contrast. Radiation optimization: All CT scans at this facility use at least one of these dose optimization techniques: automated exposure control; mA and/or kV adjustment per patient size (includes targeted exams where dose is matched to clinical indication); or iterative reconstruction. COMPARISON: CT chest, abdomen, pelvis 04/13/2020 FINDINGS: Vertebrae: Old mild compression fracture of T12. No acute fracture. Lumbar spine levoscoliosis. Retrolisthesis of L5 with respect to L4. Discs/Spinal canal/Neural foramina: Multilevel disc space narrowing. Soft tissues: Unremarkable. IMPRESSION: Compared to 04/13/2020, no acute fracture. CT Head Without Contrast Exam date and time: 04/19/2020 3:52 PM Age: 74 years old Clinical indication: Other: Fall out of chair, R/O acute process TECHNIQUE: Imaging protocol: Computed tomography of the head without contrast. COMPARISON: CT HEAD CERVICAL SPINE WO 04/13/2020 6:22 PM FINDINGS: Brain: Cerebral volume loss noted. Scattered areas of decreased attenuation in the deep periventricular white matter consistent with small vessel ischemic change. No evidence for acute intracranial hemorrhage. Ventricles: Normal. No ventriculomegaly. Bones/joints: Unremarkable. No acute fracture. Sinuses: Mild mucoperiosteal thickening left ethmoid air cells. Mastoid air cells: Visualized mastoid air cells are well aerated. Soft tissues: Unremarkable. IMPRESSION: Senescent changes noted. No acute intracranial abnormality. CT Cervical Spine Without Contrast Exam date and time: 04/19/2020 3:52 PM Age: 74 years old Clinical indication: Other: Fall out of chair, R/O acute process TECHNIQUE: Imaging protocol: Computed tomography images of the cervical spine without contrast. COMPARISON: CT HEAD CERVICAL SPINE WO 04/13/2020 6:22 PM FINDINGS: Vertebrae: Moderate cervical spondylosis without evidence for stenosis. There is reversal the normal cervical lordosis with extensive uncovertebral degenerative change and presumed chronic ligamentous laxity. There is anterolisthesis C3-C4 and C5-C6. Vertebral body height is well preserved. There is no evidence for fracture or dislocation. Discs/Spinal canal/Neural foramina: No significant disc protrusion. No severe spinal canal stenosis. No significant neural foraminal narrowing. Soft tissues: Unremarkable. Lungs: Hazy ill-defined right upper lobe opacity, uncertain chronicity. Vasculature: Bilateral calcified carotid plaque. IMPRESSION: 1. Spondylosis without stenosis. No evidence for fracture. 2. Follow up right upper lobe opacity. Lab Data Lab results reviewed: Yes I reviewed the patient's lab results. Labs: Laboratory Tests Range/Units 04/19/20 04/19/20 04/19/20 14:40 14:40 14:40 WBC (4.4-10.8) 10^3/uL 3.46 L RBC (3.93-5.22) 10^6/uL 3.50 L Hgb (11.2-15.7) g/dL 9.7 L Hct (36.0-46.0) % 31.7 L MCV (80-95) fL 90.6 MCH (27.0-33.0) pg 27.7 MCHC (32.0-36.0) % 30.6 L RDW (11.7-14.6) % 19.4 H Plt Count (130-400) 10^3/uL 225 MPV (8.0-11.0) fL 10.1 Immature Gran % 0.3 Neutrophils % 54.6 Lymphocytes % 34.4 Monocytes % 9.8 Eosinophils % 0.3 Basophils % 0.6 Nucleated RBC % % 0 Absolute Neutrophils (1.2-6.7) 10^3/uL 1.89 Absolute Lymphocytes (1.2-3.4) 10^3/uL 1.19 L Absolute Monocytes (0.1-0.8) 10^3/uL 0.34 Absolute Eosinophils (0.0-0.7) 10^3/uL 0.01 Absolute Basophils (0.0-0.2) 10^3/uL 0.02 PT (9.3-11.0) sec 10.1 INR (0.9-1.1) 1.0 APTT (21.0-31.4) sec 18.9 L Sodium (136-145) mmol/L 139 Potassium (3.5-5.1) mmol/L 3.3 L Chloride (98-107) mmol/L 101 Carbon Dioxide (21.0-32.0) mmol/L 27.5 Anion Gap (3-11) mmol/L 10.5 BUN (7-18) mg/dL 9 Creatinine (0.55-1.02) mg/dL 0.76 Estimated GFR/1.73 m2 (mL/min/1.73m2) >= 60.00 Glucose (74-106) mg/dL 100 Calcium (8.5-10.1) mg/dL 9.3 Magnesium (1.8-2.4) mg/dL 1.7 L Total Bilirubin (0.2-1.0) mg/dL 0.4 AST (15-37) U/L 57 H ALT (14-59) U/L 39 Alkaline Phosphatase (46-116) U/L 184 H Troponin I (<0.06) ng/mL < 0.05 Total Protein (6.4-8.2) g/dL 6.9 Albumin (3.4-5.0) g/dL 3.0 L ECG Data Interpretation: HPI General Mode of arrival: EMS . Date/Time Provider Initiated Documentation: 04/19/20 13:37 . Limitations to Documentation: no limitations . Information obtained by: patient . HPI Narrative: Pt is a 74yo F well known to the emergency department with a history of multiple falls and traumatic fractures, most recently multiple rib fractures status post mechanical fall who presents with right-sided rib pain after her chair at home broke and she fell onto her right side. She denies any known head injury, neck pain, chest pain, shortness of breath or abdominal pain. Patient lives at home alone with multiple animals. She has a is manager who checks on her daily. Related Data Home Medications Medication Instructions Recorded Confirmed folic acid 1 mg PO DAILY #14 tab 08/11/18 04/19/20 Refresh Plus 1 drp OU Q4H WHILE AWAKE #30 each 06/20/19 04/19/20 venlafaxine 150 mg 150 mg PO DAILY #30 cap 06/27/19 04/19/20 capsule,extended release 24 hr venlafaxine 37.5 mg 37.5 mg PO DAILY #30 cap 06/27/19 04/19/20 capsule,extended release 24 hr amlodipine 10 mg tablet 10 mg PO DAILY #90 tab 06/28/19 04/19/20 magnesium oxide 400 mg PO BID #180 cap 07/17/19 04/19/20 food supplemt, lactose-reduced 414 ml PO DAILY #14937 ml 08/24/19 04/19/20 pantoprazole 40 mg tablet,delayed 40 mg PO DAILY #90 tab 08/24/19 04/19/20 release gabapentin 300 mg capsule 300 mg PO BID #90 cap 08/28/19 04/19/20 hydrochlorothiazide 12.5 mg tablet 12.5 mg PO DAILY #90 tab 08/28/19 04/19/20 metoprolol tartrate 50 mg tablet 50 mg PO BID #180 tab 08/28/19 04/19/20 sennosides 8.6 mg tablet 8.6 mg PO BID #180 tab 08/28/19 04/19/20 meclizine 25 mg tablet 25 mg PO TID PRN #30 tab 09/14/19 04/19/20 multivitamin 1 tab PO DAILY #90 tab 09/14/19 04/19/20 potassium chloride 10 mEq 10 meq PO DAILY #90 tab 09/14/19 04/19/20 tablet,extended release(part/cryst) dicyclomine 10 mg capsule 10 mg PO QID PRN #40 cap 03/10/20 08/22/20 sucralfate 1 gram tablet 1 g PO AC & HS #120 tab 11/06/19 04/19/20 thiamine mononitrate (vit B1) 100 mg PO DAILY #10 tab 11/23/19 04/19/20 [Vitamin B-1 (mononitrate)] ipratropium 0.5 mg-albuterol 3 mg 3 ml IH QID PRN #90 ml 01/04/20 04/19/20 (2.5 mg base)/3 mL nebulization soln ondansetron HCl [Zofran] 4 mg PO Q8H #12 tab 02/07/20 04/19/20 fluticasone propionate 50 1 spray NS daily prn #9.9 ml 03/25/20 04/19/20 mcg/actuation nasal spray,suspension ibuprofen 400 mg PO Q6H PRN #60 tab 04/14/20 04/19/20 celecoxib 100 mg capsule 100 mg PO BID #20 cap 04/15/20 04/19/20 Previous Rx's Medication Instructions Recorded folic acid 1 mg PO DAILY #14 tab 08/11/18 Refresh Plus 1 drp OU Q4H WHILE AWAKE #30 each 06/20/19 venlafaxine 150 mg 150 mg PO DAILY #30 cap 06/27/19 capsule,extended release 24 hr venlafaxine 37.5 mg 37.5 mg PO DAILY #30 cap 06/27/19 capsule,extended release 24 hr amlodipine 10 mg tablet 10 mg PO DAILY #90 tab 06/28/19 magnesium oxide 400 mg PO BID #180 cap 07/17/19 food supplemt, lactose-reduced 414 ml PO DAILY #86028 ml 08/24/19 pantoprazole 40 mg tablet,delayed 40 mg PO DAILY #90 tab 08/24/19 release gabapentin 300 mg capsule 300 mg PO BID #90 cap 08/28/19 hydrochlorothiazide 12.5 mg tablet 12.5 mg PO DAILY #90 tab 08/28/19 metoprolol tartrate 50 mg tablet 50 mg PO BID #180 tab 08/28/19 sennosides 8.6 mg tablet 8.6 mg PO BID #180 tab 08/28/19 meclizine 25 mg tablet 25 mg PO TID PRN #30 tab 09/14/19 multivitamin 1 tab PO DAILY #90 tab 09/14/19 potassium chloride 10 mEq 10 meq PO DAILY #90 tab 09/14/19 tablet,extended release(part/cryst) dicyclomine 10 mg capsule 10 mg PO QID PRN #40 cap 11/06/19 sucralfate 1 gram tablet 1 g PO AC & HS #120 tab 11/06/19 thiamine mononitrate (vit B1) 100 mg PO DAILY #10 tab 11/23/19 [Vitamin B-1 (mononitrate)] ipratropium 0.5 mg-albuterol 3 mg 3 ml IH QID PRN #90 ml 01/04/20 (2.5 mg base)/3 mL nebulization soln ondansetron HCl [Zofran] 4 mg PO Q8H #12 tab 02/07/20 fluticasone propionate 50 1 spray NS daily prn #9.9 ml 03/25/20 mcg/actuation nasal spray,suspension ibuprofen 400 mg PO Q6H PRN #60 tab 04/14/20 celecoxib 100 mg capsule 100 mg PO BID #20 cap 04/15/20 Allergies Allergy/AdvReac Type Severity Reaction Status Date / Time Penicillins Allergy Mild Rash Verified 04/19/20 15:17 ramipril Allergy Unknown ITCHING Verified 04/19/20 15:17 meperidine [From Demerol] AdvReac Severe Nausea Verified 04/19/20 15:17 bupropion AdvReac Mild GI upset Verified 04/19/20 15:17 AMBER Inhibitors AdvReac Unknown COUGH Verified 04/19/20 15:17 alendronate sodium AdvReac Unknown GI Distress Verified 04/19/20 15:17 clarithromycin AdvReac Unknown intolerant Verified 04/19/20 15:17 paroxetine AdvReac Unknown Diarrhea Verified 04/19/20 15:17 General JORDAN: 3 Review of Systems All systems reviewed & are unremarkable except as noted in HPI and below Constitutional Constitutional: Reports as per HPI, Denies chills and Denies fever(s) Eyes Eyes: Denies blurry vision ENT Ears, Nose, Mouth, and Throat: Denies dizziness, Denies sore throat and Denies throat swelling Cardiovascular Cardiovascular: Denies chest pain and Denies dyspnea Respiratory Respiratory: Denies cough and Denies dyspnea Gastrointestinal Gastrointestinal: Denies abdominal pain, Denies diarrhea and Denies vomiting Genitourinary Genitourinary: Denies hematuria and Denies dysuria Musculoskeletal Musculoskeletal: Reports back pain, Denies numbness and Reports other (R sided rib pain) Integumentary/Breasts Skin/Breast: Denies lesions and Denies rash Neurologic Neurologic: Denies dizziness, Denies localized weakness and Denies numbness Allergic/Immunologic Allergic/Immunologic: Denies throat swelling [facility] Medical History (Updated 04/19/20 @ 17:20 by Megan Foster DO) Alcohol abuse (Acute) Alcoholic ketosis (Resolved) Allergic rhinitis (Chronic) Anemia (Chronic 12/20/16) Back pain, chronic (Chronic) CAP (community acquired pneumonia) (Resolved) Cataract (Chronic 11/07/15) Cervical radicular pain (Chronic) neck pain and [facility] Chronic alcoholic gastritis (Chronic 10/12/17) pls refrain from alcohol Chronic diarrhea (Acute) Contusion of left little finger (Acute) Corneal ulcer, right (Inactive ~08/23/18) 08/23/18; [facility] Depression (Chronic) Elev transaminase/LDH (Chronic) due to alcohol Fall (Acute) Fall as cause of accidental injury at home as place of occurrence (Acute) Falling (Acute) Genital herpes simplex (Chronic) recurrent gential; suppressive Valtrex GERD (gastroesophageal reflux disease) (Chronic) GI bleed (Resolved 12/20/16) Headache (Resolved) Hyperlipidemia (Chronic) Hypertension (Chronic) high today; she will check readings at home 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 Multiple rib fractures (Resolved) 03/11/19 [facility] Non-cardiac chest pain (Resolved 09/21/16) [facility] 09/21/16 NEGATIVE MP Osteoarthritis (Chronic) Osteopenia (Chronic) 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) Peripheral edema (Acute) Pleural effusion on left (Resolved) 03/11/19 [facility] Right rib fracture (Resolved) Sciatica (Chronic) right, epidural injuections [facility] Tendinitis of left rotator cuff (Inactive) Tubular adenoma of colon (Chronic 01/28/17) Urinary incontinence (Chronic) 01/24/13 urethral suspension and sling at [facility] (bladder suspension 1991) Wernicke encephalopathy (Chronic) Surgical History Bladder Surgery suspension Colonoscopy - [facility] (01/28/17) EGD - [facility] (12/20/16) History of bilateral ligation of fallopian tubes (Inactive) Ligation of fallopian tube Repair bladder injury, simple Family History Mother No problems noted. Father , DROWNED at age 50. No problems noted. Sister Personal history of malignant neoplasm MELANOMA Sister No problems noted. Grandfather Personal history of malignant neoplasm STOMACH Grandfather Personal history of malignant neoplasm PROSTATE Grandmother Heart disease ID Acute ill-defined cerebrovascular disease Grandmother Personal history of malignant neoplasm UTERINE Aunt , ID Heart disease ID Aunt , ID Heart disease Brother No problems noted. Social History Smoking/Tobacco Use Status: Former Tobacco Use Alcohol Intake: current Alcohol Intake frequency: 3 or more drinks per day Alcohol type: hard liquor Drug use: Never Substance use type: does not use Details: states last drink was Current gender identity: female Do you feel safe at home: Yes Do you feel safe in your relationship?: Yes Additional Social history: Exam Const General: cooperative and ill appearing chronically Orientation: alert, awake and oriented x3 HENMT Head: normal to inspection Ears: hearing grossly normal bilaterally, external ears normal and TM's normal bilaterally General nose exam: external nose normal Face and sinus: normal facial exam Mouth: mucous membranes dry Throat: posterior oropharynx normal Eyes General: appearance normal, both eyes and all related structures Eyelids: eyelids normal Pupils: PERRL EOM: EOM intact bilaterally Neck Neck: normal visual inspection Lymphatic: no lymphadenopathy noted Chest Chest: normal inspection of the chest and tenderness (R side of chest tenderness ) Resp Effort & Inspection: normal respiratory effort and able to speak in complete sentences Auscultation: clear to auscultation bilaterally Cardio Rate: regular rate Rhythm: regular rhythm GI Inspection: normal to inspection Palpation: soft, not firm, no guarding, no hepatosplenomegaly, no masses and nontender Auscultation: normal bowel sounds Back/Spine/Pelvis Cervical Spine: No cervical spinal tenderness Thoracic/Lumbar Spine: thoracic and lumbar spine normal to inspection, No thoracic spinal tenderness and No lumbar spinal tenderness Skin General skin exam: no rashes or lesions noted Neuro General: patient alert and patient awake Cognition: normal cognition Speech: speech normal Gait: normal gait Motor: muscle tone normal throughout Sensory Exam: no sensory deficits noted Extrem General: normal to inspection, full ROM and capillary refill normal Other: no evidence of trauma to upper or lower extremities. Psych Appearance: grossly normal Mental Status: mental status grossly normal Speech and Movement: speech and movement normal Affect: normal affect Thought Process: normal
[2020-04-19 14:58] LABS: Abs Immature Grans 0.01 10^3/uL (0.0-0.06); Absolute Basophil Count 0.02 10^3/uL (0.0-0.2); Absolute Eosinophil Count 0.01 10^3/uL (0.0-0.7); Absolute Lymphocyte Count 1.19 10^3/uL (1.2-3.4); Absolute Monocyte Count 0.34 10^3/uL (0.1-0.8); Absolute Neutrophil Count 1.89 10^3/uL (1.2-6.7); Basophils % 0.6; Eosinophils % 0.3; HCT 31.7 % (36.0-46.0); HGB 9.7 g/dL (11.2-15.7); Immature Grans % 0.3; Lymphocytes % 34.4; MCH 27.7 pg (27.0-33.0); MCHC 30.6 % (32.0-36.0); MCV 90.6 fL (80-95); MPV 10.1 fL (8.0-11.0); Monocytes % 9.8; Neutrophils % 54.6; Nucleated RBC 0 %; Platelet Count 225 10^3/uL (130-400); RDW 19.4 % (11.7-14.6); RDW-SD 65.1 fL; WBC 3.46 10^3/uL (4.4-10.8)
[2020-04-19 15:12] LABS: PTT Activated 18.9 sec (21.0-31.4); Prothrombin Time 10.1 sec (9.3-11.0)
[2020-04-19 15:15] LABS: ALT 39 U/L (14-59); AST 57 U/L (15-37); Alkaline Phosphatase 184 U/L (46-116); Anion Gap 10.5 mmol/L (3-11); BUN 9 mg/dL (7-18); Bilirubin, Total 0.4 mg/dL (0.2-1.0); CO2 27.5 mmol/L (21.0-32.0); CREATININE 0.76 mg/dL (0.55-1.02); Calcium 9.3 mg/dL (8.5-10.1); Chloride 101 mmol/L (98-107); Glucose 100 mg/dL (74-106); Magnesium 1.7 mg/dL (1.8-2.4); Potassium 3.3 mmol/L (3.5-5.1); Sodium 139 mmol/L (136-145); Total Protein 6.9 g/dL (6.4-8.2)
[2020-04-19 15:16] LABS: Troponin I < 0.05 ng/mL (<0.06)
[2020-04-19] MEDS: Omnipaque 350 MG/ML 100 ML BTL IJ (16:04)
[2020-04-19] MEDS: Normal Saline - Diluent 50 ML VIAL IV (16:04)
[2020-04-19] MEDS: Normal Saline Flush 10 ML SYR IVP (16:05)
[2020-04-19] MEDS: Potassium Chloride 20 MEQ TABCR 40 MEQ PO (16:26)
[2020-04-19] MEDS: MAGNESIUM SULFATE 1 GM/100 ML BAG IVPB (16:26)
--- NOTE | 2020-04-19 16:26 | DI.VRAD_ITS ---
PROCEDURE INFORMATION: Exam: CT Head Without Contrast Exam date and time: 04/19/2020 3:52 PM Age: 74 years old Clinical indication: Other: Fall out of chair, R/O acute process TECHNIQUE: Imaging protocol: Computed tomography of the head without contrast. COMPARISON: CT HEAD CERVICAL SPINE WO 04/13/2020 6:22 PM FINDINGS: Brain: Cerebral volume loss noted. Scattered areas of decreased attenuation in the deep periventricular white matter consistent with small vessel ischemic change. No evidence for acute intracranial hemorrhage. Ventricles: Normal. No ventriculomegaly. Bones/joints: Unremarkable. No acute fracture. Sinuses: Mild mucoperiosteal thickening left ethmoid air cells. Mastoid air cells: Visualized mastoid air cells are well aerated. Soft tissues: Unremarkable. IMPRESSION: Senescent changes noted. No acute intracranial abnormality. PROCEDURE INFORMATION: Exam: CT Cervical Spine Without Contrast Exam date and time: 04/19/2020 3:52 PM Age: 74 years old Clinical indication: Other: Fall out of chair, R/O acute process TECHNIQUE: Imaging protocol: Computed tomography images of the cervical spine without contrast. COMPARISON: CT HEAD CERVICAL SPINE WO 04/13/2020 6:22 PM FINDINGS: Vertebrae: Moderate cervical spondylosis without evidence for stenosis. There is reversal the normal cervical lordosis with extensive uncovertebral degenerative change and presumed chronic ligamentous laxity. There is anterolisthesis C3-C4 and C5-C6. Vertebral body height is well preserved. There is no evidence for fracture or dislocation. Discs/Spinal canal/Neural foramina: No significant disc protrusion. No severe spinal canal stenosis. No significant neural foraminal narrowing. Soft tissues: Unremarkable. Lungs: Hazy ill-defined right upper lobe opacity, uncertain chronicity. Vasculature: Bilateral calcified carotid plaque. IMPRESSION: 1. Spondylosis without stenosis. No evidence for fracture. 2. Follow up right upper lobe opacity. Dictated and Authenticated by: Alma Rosa Santiago MD. Ordering:KATE Guzman MD
--- NOTE | 2020-04-19 16:48 | DI.VRAD_ITS ---
PROCEDURE INFORMATION: Exam: CT Chest With Contrast Exam date and time: 04/19/2020 1:46 PM Age: 74 years old Clinical indication: Fall out of chair, R/O acute process TECHNIQUE: Imaging protocol: Computed tomography of the chest with intravenous contrast. Radiation optimization: All CT scans at this facility use at least one of these dose optimization techniques: automated exposure control; mA and/or kV adjustment per patient size (includes targeted exams where dose is matched to clinical indication); or iterative reconstruction. Contrast material: OMNIPAQUE 350; Contrast route: INTRAVENOUS (IV); COMPARISON: CT CHEST/ABD/PEL W 04/13/2020 6:30 PM FINDINGS: Lungs: Minimal atelectasis posterior right lower lobe. Bilateral superior lung linear parenchymal scarring or subsegmental collapse / atelectasis. Pleural space: Unremarkable. No pneumothorax. No pleural effusion. Heart: Unremarkable. No cardiomegaly. No pericardial effusion. Mediastinal space: Small hiatal hernia. Aorta: Unremarkable. No aortic aneurysm. Lymph nodes: Unremarkable. No enlarged lymph nodes. Bones/joints: No acute fracture. Impression. Compared to 04/13/2020, multiple old bilateral rib fractures. Old mild compression fracture of T12. Old fracture lateral right clavicle and proximal right humerus. Spinal degenerative changes. Soft tissues: Unremarkable. IMPRESSION: 1. No acute fracture. Impression. Compared to 04/13/2020, multiple old bilateral rib fractures. Old mild compression fracture of T12. Old fracture lateral right clavicle and proximal right humerus. 3. No pneumothorax or pleural fluid collection. 4. Minimal atelectasis posterior right lower lobe. 5. Small hiatal hernia. PROCEDURE INFORMATION: Exam: CT Abdomen And Pelvis With Contrast Exam date and time: 04/19/2020 1:46 PM Age: 74 years old Clinical indication: Fall out of chair, R/O acute process TECHNIQUE: Imaging protocol: Computed tomography of the abdomen and pelvis with intravenous contrast. Radiation optimization: All CT scans at this facility use at least one of these dose optimization techniques: automated exposure control; mA and/or kV adjustment per patient size (includes targeted exams where dose is matched to clinical indication); or iterative reconstruction. Contrast material: OMNIPAQUE 350; Contrast volume: 100 ml; Contrast route: INTRAVENOUS (IV); COMPARISON: CT CHEST/ABD/PEL W 04/13/2020 6:30 PM FINDINGS: Liver: Liver fatty infiltration. Gallbladder and bile ducts: Normal. No calcified stones. No ductal dilation. Pancreas: Normal. No ductal dilation. Spleen: Normal. No splenomegaly. Adrenals: Normal. No mass. Kidneys and ureters: Bilateral renal cortical cysts. No hydronephrosis or perinephric fluid collection. Stomach and bowel: Unremarkable. No obstruction. No mucosal thickening. Appendix: No evidence of appendicitis. Intraperitoneal space: Unremarkable. No free air. No significant fluid collection. Vasculature: Unremarkable. No abdominal aortic aneurysm. Lymph nodes: Unremarkable. No enlarged lymph nodes. Bladder: Unremarkable as visualized. Reproductive: Atrophic uterus and ovaries. Bones/joints: Spinal degenerative changes. Lumbar levoscoliosis. No acute fracture. Retrolisthesis of L5 with respect to L4. Soft tissues: Fat-containing inguinal and umbilical hernias. IMPRESSION: 1. No acute fracture. 2. No acute intra-abdominal or pelvic findings. Dictated and Authenticated by: Mamadou Melton MD. Ordering:KATE Guzman MD
--- NOTE | 2020-04-19 16:53 | DI.VRAD_ITS ---
PROCEDURE INFORMATION: Exam: CT Thoracic Spine Without Contrast Exam date and time: 04/19/2020 1:46 PM Age: 74 years old Clinical indication: Other: S/P fall, R/O acute fracture; Other: S/P fall, f/o acute fracture TECHNIQUE: Imaging protocol: Computed tomography images of the thoracic spine without contrast. Radiation optimization: All CT scans at this facility use at least one of these dose optimization techniques: automated exposure control; mA and/or kV adjustment per patient size (includes targeted exams where dose is matched to clinical indication); or iterative reconstruction. COMPARISON: CT chest, abdomen, pelvis 04/13/2020 FINDINGS: Vertebrae: Old mild compression fracture of T12. No acute fracture. Discs/Spinal canal/Neural foramina: Spinal degenerative changes. Other bones/joints: Old bilateral rib fractures. Soft tissues: Unremarkable. IMPRESSION: Compared to 04/13/2020, no acute fracture. PROCEDURE INFORMATION: Exam: CT Lumbar Spine Without Contrast Exam date and time: 04/19/2020 1:46 PM Age: 74 years old Clinical indication: Other: S/P fall, R/O acute fracture TECHNIQUE: Imaging protocol: Computed tomography images of the lumbar spine without contrast. Radiation optimization: All CT scans at this facility use at least one of these dose optimization techniques: automated exposure control; mA and/or kV adjustment per patient size (includes targeted exams where dose is matched to clinical indication); or iterative reconstruction. COMPARISON: CT chest, abdomen, pelvis 04/13/2020 FINDINGS: Vertebrae: Old mild compression fracture of T12. No acute fracture. Lumbar spine levoscoliosis. Retrolisthesis of L5 with respect to L4. Discs/Spinal canal/Neural foramina: Multilevel disc space narrowing. Soft tissues: Unremarkable. IMPRESSION: Compared to 04/13/2020, no acute fracture. Dictated and Authenticated by: Mamadou Melton MD. Ordering:KATE Guzman MD
== END 2020-04-19 18:10 | disposition home or self-care (01) ==
PROVIDERS: Emergency Provider Physician Assistant; PCP Family Medicine
DX: R07.81 Pleurodynia (principal); W07.XXXA Fall from chair, initial encounter; F10.10 Alcohol abuse, uncomplicated; R29.6 Repeated falls; Z60.2 Problems related to living alone; I10 Essential (primary) hypertension
CPT/HCPCS: 36415; 74177; 80053; 96365; 99285; 70450; 71260; 72125; 72128; 72131; 83735; 84484; 85025; 85610; 85730; 99284; J3475; J3490

== ENCOUNTER 2020-04-22 21:22 | Emergency (ER) | payer OTHER, SELFPAY ==
--- NOTE | 2020-04-22 20:48 | ED.GENADUL_ITS ---
Discharge Plan Disposition Patient Disposition: AGAINST MEDICAL ADVICE Condition: Poor Discharge Details Chief Complaint: GenMedical Clinical Impression: Fall at home, Neck pain, Acute shoulder pain, Laceration of face Primary Care Provider: Lavelle Galindo ED Provider: Tash Servin [place] Meds and New Rx's Prescriptions: Continued meclizine 25 mg tablet 25 mg PO TID PRN (Reason: dizziness) Qty: 30 RF: 1 venlafaxine 37.5 mg capsule,extended release 24hr 37.5 mg PO DAILY Qty: 30 RF: 11 venlafaxine 150 mg capsule,extended release 24hr 150 mg PO DAILY Qty: 30 RF: 11 hydrochlorothiazide 12.5 mg tablet 12.5 mg PO DAILY Qty: 90 RF: 3 gabapentin 300 mg capsule 300 mg PO BID Qty: 90 RF: 5 metoprolol tartrate 50 mg tablet 50 mg PO BID Qty: 180 RF: 3 sennosides [Senokot] 8.6 mg tablet 8.6 mg PO BID Qty: 180 RF: 3 magnesium oxide 400 mg magnesium capsule 400 mg PO BID Qty: 180 RF: 3 amlodipine 10 mg tablet 10 mg PO DAILY Qty: 90 RF: 3 pantoprazole 40 mg tablet,delayed release (DR/EC) 40 mg PO DAILY Qty: 90 RF: 3 Ensure Active High Protein Liquid 414 ml PO DAILY Qty: 53525 RF: 11 multivitamin [Multiple Vitamins] Tablet 1 tab PO DAILY Qty: 90 RF: 3 potassium chloride [Klor-Con M10] 10 mEq tablet,ER particles/crystals 10 meq PO DAILY Qty: 90 RF: 3 dicyclomine 10 mg capsule 10 mg PO QID PRN (Reason: belly pain) Qty: 40 RF: 0 sucralfate 1 gram tablet 1 g PO AC & HS Qty: 120 RF: 5 ipratropium-albuterol 0.5 mg-3 mg(2.5 mg base)/3 mL solution for nebulization 3 ml IH QID PRN (Reason: shortness of breath) Qty: 90 RF: 3 fluticasone propionate 50 mcg/actuation spray,suspension 1 spray NS daily prn Qty: 9.9 RF: 2 celecoxib [Celebrex] 100 mg capsule 100 mg PO BID Qty: 20 RF: 0 folic acid 1 mg Tablet 1 mg PO DAILY Qty: 14 RF: 0 Refresh Plus 0.5 % Dropperette 1 drp OU Q4H WHILE AWAKE Qty: 30 RF: 0 thiamine mononitrate (vit B1) [Vitamin B-1 (mononitrate)] 100 mg Tablet 100 mg PO DAILY Qty: 10 RF: 0 ondansetron HCl [Zofran] 4 mg tablet 4 mg PO Q8H Qty: 12 RF: 0 ibuprofen 400 mg tablet 400 mg PO Q6H PRNQty: 60 RF: 3 Discharge Instructions Instructions: Facial Laceration (ED), Springer J Collar (ED), Neck Pain (ED) Additional Instructions: I am concerned that she relieving without having imaging completed of your neck. You do have pain along her cervical spine. You have refused all imaging here. You may return anytime for further work-up. However, until you have been cleared, I would like for you to remain in c-collar to help protect the cervical spine. Please avoid alcohol. Encourage water intake. You may use medications as previously prescribed to help with discomfort. You may try topical anesthetic such as Lidoderm patches to help with pain in the right shoulder. You had a laceration her face which was cleaned and closed with adhesive here today. Please allow this to come off naturally. Please not pick or pull with this. Do not put any ointments over this as well because presence of breakdown. Monitor for signs of infection getting redness, warmth, drainage, increased pain, fever/chills. If you develop these or other new/worsening symptoms to seek care urgently once again. If you develop weakness, sensation changes, increased pain or other new/worsening symptoms please seek care urgently once again. Otherwise, please follow-up with your primary care soon as possible to discuss your neck pain. Referrals: Lavelle Galindo. [Primary Care Provider] - Discharge Data Discharge Date/Time-TO BE ENTERED AT DEPARTURE: 04/22/20 22:28 Medical Decision Making Patient is 74-year-old female, well-known to myself and department, brought in via EMS with chief complaint of right-sided shoulder pain after fall. Patient has a long history of alcohol abuse. States that she last had alcohol approximately 2 hours prior to arrival. She reports that she remembers the entirety of the fall, no LOC. Reports that she felt weak and associates this with hypotension. Reports that she has known hypotension and has been discussing with her primary care. Her primary concern at this time is acute on chronic pain. She reports known fracture to right shoulder as well as mutliple right sided ribs injuries from her frequent falls. She denies SOB. Denies XIONG. Endorsed neck pain to EMS, currently collared. Her primary concern at this time is pain management. She denies numbness/tingling. No new weakness. On exam, patient appears to be at her baseline. She actually is the most verbally clear I have ever seen her. While she reports ETOH 2 hours ago, she does not appear as impared as I have seen her historically. Her speech is clear. She is LEVELOCK at baseline but responds appropriately and respectfully. She has a 1.5cm Y shaped laceration superior lateral to right eye lid. No other evidence of head trama. She has c-collar in place but does endorse midling tendernes. Moving all extremiteis. No thoracic/lumbar midline pain. Limited range of motion of the right upper extremity secondary to pain. She indicates that humeral head is area of maximal discomfort. Axillary nerve function is intact. Good capillary refill, 2+ distal pulses. She is having pain with palpation about the chest, has known right-sided rib fractures in various stages of healing. Ecchymosis of bilateral upper extremities in various stages of healin g. Denies any evidence of acute injury to extremities. I advised imaging of her cervical spine and shoulder. However, patient is adamantly refusing. She is concerned regaridng the number of radiographic images she has had historically. She is clincially sober, I feel that she can make that judgement at this time. I have seen the patient multiple times in the past she is the most clear and appropriate of ever seen her. We did discuss the risk/benefits of this at length and I did encourage that she move forward with imaging which she continues to refuse. Question the patient can what it is I could help her with today if she did not want to have her injuries further assessed, patient is requesting narcotics for her pain. Is not patient's alcohol history and continued consumption, I do not feel that this is safe. Nor do I feel that adding narcotics on top of somebody having low blood pressure with frequent falls would be appropriate. I counseled the patient on this. We did discuss nonnarcotic options which seem to only frustrate her. Patient discussed care of the laceration on her forehead. We discussed risk/benefits as well as expected procedural steps associated with adhesive closure. She voiced understanding and wished to proceed. Please see procedure note. Wound edges easily reapproximated and closed well with adhesive. She and I discussed wound care as well as care of the adhesive at length. She is able to reiterate care of this back to me. Patient I again discussed imaging and she continues to refuse secondary to risk of radiation. She has known humeral head fracture and multiple right-sided rib fractures in various stages of healing. She prefers at this time to keep the cervical collar in place. She has a sling at home for her shoulder. She will follow-up closely with her primary care. Advised that she and her treatment time for imaging that she had refused. I am concerned that while the patient is clinically sober at this time, she is at high risk for further injury to her neck and likely will be removing the cervical collar at home as she has high likelihood to consume large amount of alcohol once again. This remains present, patient is leaving AGAINST MEDICAL ADVICE as I would like to ensure she is not having serious cervical spine injury prior to her discharge. Patient is aware of these risks. HPI General Mode of arrival: EMS . Date/Time Provider Initiated Documentation: 04/22/20 21:22 . Limitations to Documentation: no limitations . Information obtained by: patient, EMS, RN notes reviewed and old records reviewed . HPI Narrative: Balwinder is a 74 year old female, well known to myself, brought in via EMS with c/c of right shoulder pain. 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 States that, my blood pressure got low and I got woozy. She denies LOC, remembers the fall and events prior to and after. Suffered laceration near right eyebrow. She reports acut nanette chronic right shoulder/rib pain from previous fractures. Deneis numbness or tingling. She reports last ETOh consumption was two hours prior ot arrival. Patient reports frequent falls slightly associates with her hypotension. Related Data Home Medications Medication Instructions Recorded Confirmed folic acid 1 mg PO DAILY #14 tab 08/11/18 04/25/20 Refresh Plus 1 drp OU Q4H WHILE AWAKE #30 each 06/20/19 04/25/20 venlafaxine 150 mg 150 mg PO DAILY #30 cap 06/27/19 04/25/20 capsule,extended release 24 hr venlafaxine 37.5 mg 37.5 mg PO DAILY #30 cap 06/27/19 04/25/20 capsule,extended release 24 hr amlodipine 10 mg tablet 10 mg PO DAILY #90 tab 06/28/19 04/25/20 magnesium oxide 400 mg PO BID #180 cap 07/17/19 04/25/20 food supplemt, lactose-reduced 414 ml PO DAILY #80101 ml 08/24/19 04/25/20 pantoprazole 40 mg tablet,delayed 40 mg PO DAILY #90 tab 08/24/19 04/25/20 release gabapentin 300 mg capsule 300 mg PO BID #90 cap 08/28/19 04/25/20 hydrochlorothiazide 12.5 mg tablet 12.5 mg PO DAILY #90 tab 08/28/19 04/25/20 metoprolol tartrate 50 mg tablet 50 mg PO BID #180 tab 08/28/19 04/25/20 sennosides 8.6 mg tablet 8.6 mg PO BID #180 tab 08/28/19 04/25/20 meclizine 25 mg tablet 25 mg PO TID PRN #30 tab 09/14/19 04/25/20 multivitamin 1 tab PO DAILY #90 tab 09/14/19 04/25/20 potassium chloride 10 mEq 10 meq PO DAILY #90 tab 09/14/19 04/25/20 tablet,extended release(part/cryst) dicyclomine 10 mg capsule 10 mg PO QID PRN #40 cap 11/06/19 04/25/20 sucralfate 1 gram tablet 1 g PO AC & HS #120 tab 11/06/19 04/25/20 thiamine mononitrate (vit B1) 100 mg PO DAILY #10 tab 11/23/19 04/25/20 [Vitamin B-1 (mononitrate)] ipratropium 0.5 mg-albuterol 3 mg 3 ml IH QID PRN #90 ml 01/04/20 04/25/20 (2.5 mg base)/3 mL nebulization soln ondansetron HCl [Zofran] 4 mg PO Q8H #12 tab 02/07/20 04/25/20 fluticasone propionate 50 1 spray NS daily prn #9.9 ml 03/25/20 04/25/20 mcg/actuation nasal spray,suspension ibuprofen 400 mg PO Q6H PRN #60 tab 04/14/20 04/25/20 celecoxib 100 mg capsule 100 mg PO BID #20 cap 04/15/20 04/25/20 Previous Rx's Medication Instructions Recorded folic acid 1 mg PO DAILY #14 tab 08/11/18 Refresh Plus 1 drp OU Q4H WHILE AWAKE #30 each 06/20/19 venlafaxine 150 mg 150 mg PO DAILY #30 cap 06/27/19 capsule,extended release 24 hr venlafaxine 37.5 mg 37.5 mg PO DAILY #30 cap 06/27/19 capsule,extended release 24 hr amlodipine 10 mg tablet 10 mg PO DAILY #90 tab 06/28/19 magnesium oxide 400 mg PO BID #180 cap 07/17/19 food supplemt, lactose-reduced 414 ml PO DAILY #29245 ml 08/24/19 pantoprazole 40 mg tablet,delayed 40 mg PO DAILY #90 tab 08/24/19 release gabapentin 300 mg capsule 300 mg PO BID #90 cap 08/28/19 hydrochlorothiazide 12.5 mg tablet 12.5 mg PO DAILY #90 tab 08/28/19 metoprolol tartrate 50 mg tablet 50 mg PO BID #180 tab 08/28/19 sennosides 8.6 mg tablet 8.6 mg PO BID #180 tab 08/28/19 meclizine 25 mg tablet 25 mg PO TID PRN #30 tab 09/14/19 multivitamin 1 tab PO DAILY #90 tab 09/14/19 potassium chloride 10 mEq 10 meq PO DAILY #90 tab 09/14/19 tablet,extended release(part/cryst) dicyclomine 10 mg capsule 10 mg PO QID PRN #40 cap 11/06/19 sucralfate 1 gram tablet 1 g PO AC & HS #120 tab 11/06/19 thiamine mononitrate (vit B1) 100 mg PO DAILY #10 tab 11/23/19 [Vitamin B-1 (mononitrate)] ipratropium 0.5 mg-albuterol 3 mg 3 ml IH QID PRN #90 ml 01/04/20 (2.5 mg base)/3 mL nebulization soln ondansetron HCl [Zofran] 4 mg PO Q8H #12 tab 02/07/20 fluticasone propionate 50 1 spray NS daily prn #9.9 ml 03/25/20 mcg/actuation nasal spray,suspension ibuprofen 400 mg PO Q6H PRN #60 tab 04/14/20 celecoxib 100 mg capsule 100 mg PO BID #20 cap 04/15/20 Allergies Allergy/AdvReac Type Severity Reaction Status Date / Time Penicillins Allergy Mild Rash Verified 04/25/20 10:51 ramipril Allergy Unknown ITCHING Verified 04/25/20 10:51 meperidine [From Demerol] AdvReac Severe Nausea Verified 04/25/20 10:51 bupropion AdvReac Mild GI upset Verified 04/25/20 10:51 AMBER Inhibitors AdvReac Unknown COUGH Verified 04/25/20 10:51 alendronate sodium AdvReac Unknown GI Distress Verified 04/25/20 10:51 clarithromycin AdvReac Unknown intolerant Verified 04/25/20 10:51 paroxetine AdvReac Unknown Diarrhea Verified 04/25/20 10:51 General JORDAN: 3 Review of Systems Constitutional Constitutional: Reports as per HPI, Denies chills, Denies fatigue, Denies fever(s), Reports frequent falls, Denies headache(s) and Denies weakness Eyes Eyes: Reports as per HPI, Denies blurry vision, Denies change in vision and Denies loss of vision ENT Ears, Nose, Mouth, and Throat: Denies abnormal hearing and Denies headache(s) Cardiovascular Cardiovascular: Reports as per HPI, Denies chest pain and Denies dyspnea Respiratory Respiratory: Reports as per HPI, Denies cough, Denies pain on inspiration, Denies pain with cough and Denies dyspnea Gastrointestinal Gastrointestinal: Reports as per HPI, Denies abdominal pain, Denies nausea and Denies vomiting Genitourinary Genitourinary: Reports as per HPI and Denies urinary incontinence Musculoskeletal Musculoskeletal: Reports as per HPI Integumentary/Breasts Skin/Breast: Reports as per HPI, Denies rash and Reports wounds (laceration lateral to right eyebrow) Neurologic Neurologic: Reports as per HPI, Denies abnormal hearing, Denies abnormal movements, Denies abnormal speech, Reports frequent falls, Denies headache(s), Denies lack of coordination, Denies localized weakness, Denies loss of vision, Denies seizure-like activity, Denies paresthesias and Denies weakness Endocrine Endocrine: Denies fatigue [facility] Medical History (Updated 04/25/20 @ 13:53 by James Crenshaw MD) Alcohol abuse (Acute) Alcoholic ketosis (Resolved) Allergic rhinitis (Chronic) Anemia (Chronic 12/20/16) Back pain, chronic (Chronic) CAP (community acquired pneumonia) (Resolved) Cataract (Chronic 11/07/15) Cervical radicular pain (Chronic) neck pain and [facility] Chronic alcoholic gastritis (Chronic 10/12/17) pls refrain from alcohol Chronic diarrhea (Acute) Contusion of left little finger (Acute) Corneal ulcer, right (Inactive ~08/23/18) 08/23/18; [facility] Depression (Chronic) Elev transaminase/LDH (Chronic) due to alcohol Fall (Acute) Fall as cause of accidental injury at home as place of occurrence (Acute) Falling (Acute) Genital herpes simplex (Chronic) recurrent gential; suppressive Valtrex GERD (gastroesophageal reflux disease) (Chronic) GI bleed (Resolved 12/20/16) Headache (Resolved) Hyperlipidemia (Chronic) Hypertension (Chronic) high today; she will check readings at home 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 Multiple rib fractures (Resolved) 03/11/19 [facility] Non-cardiac chest pain (Resolved 09/21/16) [facility] [place]/21[place]16 NEGATIVE MP Osteoarthritis (Chronic) Osteopenia (Chronic) 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) Peripheral edema (Acute) Pleural effusion on left (Resolved) 03/11/19 [facility] Right rib fracture (Resolved) Sciatica (Chronic) right, epidural injuections [facility] Tendinitis of left rotator cuff (Inactive) Tubular adenoma of colon (Chronic 01/28/17) Urinary incontinence (Chronic) 01/24/13 urethral suspension and sling at [facility] (bladder suspension 1991) Wernicke encephalopathy (Chronic) Surgical History Bladder Surgery suspension Colonoscopy - MAC (01/28/17) EGD - MAC (12/20/16) History of bilateral ligation of fallopian tubes (Inactive) Ligation of fallopian tube Repair bladder injury, simple Family History Mother No problems noted. Father , DROWNED at age 50. No problems noted. Sister Personal history of malignant neoplasm MELANOMA Sister No problems noted. Grandfather Personal history of malignant neoplasm STOMACH Grandfather Personal history of malignant neoplasm PROSTATE Grandmother Heart disease ME Acute ill-defined cerebrovascular disease Grandmother Personal history of malignant neoplasm UTERINE Aunt , ME Heart disease ME Aunt , ME Heart disease Brother No problems noted. Social History Smoking/Tobacco Use Status: Former Tobacco Use Alcohol Intake: current Alcohol Intake frequency: 3 or more drinks per day Alcohol type: hard liquor Drug use: Never Substance use type: does not use Details: Last acoholic beverage was 2pm this afternoon. Current gender identity: female Do you feel safe at home: Yes Do you feel safe in your relationship?: Yes Additional Social history: Exam Const General: cooperative, comfortable, no acute distress, disheveled and ill appearing chronically Nutritional Appearance: average body habitus and well nourished Orientation: alert, awake and oriented x3 HENMT Head: normal to inspection, no palpable skull fracture, normocephalic, atraum atic, no Valentine's sign, no contusions, no hematomas and laceration (as drawn below) Head images: 1. Y shaped laceration without active bleeding. No swelling, no tenderness. Deep structures are intact. Ears: hearing grossly normal bilaterally, external ears normal and TM's normal bilaterally General nose exam: external nose normal Mouth: oral mucosae normal, lip normal and tongue normal Throat: posterior oropharynx normal Eyes General: appearance normal, both eyes and all related structures Visual Gatica: normal visual gatica by confrontation Alignment and Position: alignment normal Periorbital: periorbital findings normal Eyelids: eyelids normal Conjunctivae: conjunctivae normal Pupils: PERRL EOM: EOM intact bilaterally Neck Neck: normal visual inspection, no lymphadenopathy, no meningeal signs, trachea midline and supple Chest Chest: normal inspection of the chest, normal palpation of entire chest wall, no crepitus and localized rib tenderness with anteroposterior compression (diffuse along right side, no ecchymosis, swelling) Resp Effort & Inspection: normal respiratory effort, able to speak in complete sentences and no respiratory distress Auscultation: clear to auscultation bilaterally, no rales, no rhonchi and no wheezes Cardio Rate: regular rate Rhythm: regular rhythm Heart Sounds: S1 normal and S2 normal GI Inspection: normal to inspection, no abdominal wall ecchymosis, no edema and non-distended Palpation: soft, no hepatosplenomegaly, not firm, no guarding, no pulsatile masses, not rigid and nontender Auscultation: normal bowel sounds Back/Spine/Pelvis Back: no CVA tenderness Cervical Spine: collar present, No cervical muscular tenderness, pain with cervical ROM, cervical spinal tenderness (along entire length of cervical spine) and No step off deformity Thoracic/Lumbar Spine: thoracic and lumbar spine normal to inspection, thoraco- lumbar ROM normal, No thoraco-lumbar ROM limited, No thoraco-lumbar spasm and No thoracic spinal tenderness Pelvis: no pain with anterior-posterior compression and no pain with lateral compression Skin General skin exam: ecchymosis (multiple ecchymotic areas to BUE, various stages of healing) Neuro General: patient alert, patient awake, patient oriented x3, gait normal, tone normal and moves all extremities Cranial Nerves: CN's II-XI intact bilaterally Cognition: normal cognition Speech: speech normal Gait: normal gait Motor: muscle tone normal throughout and strength 5/5 throughout Sensory Exam: no sensory deficits noted (no saddle paresthesias) Extrem General: normal to inspection, capillary refill normal, no pedal edema and no calf tenderness Right upper extremity: normal to inspection, normal capillary refill and no joint enlargement; ROM limited (unable to range shoulder secondary to pain) Psych Appearance: grossly normal and well kempt Mental Status: mental status grossly normal Speech and Movement: speech and movement normal Procedures Laceration Laceration 1: Site: face Side (If applicable): right Size (cm): 2.5 Description: irregular (Y) Depth: simple, single layer Pre-repair: wound explored, irrigated extensively and deep structures intact Skin layer closed with: other (Adhesive)
[2020-04-22 20:49] VITALS: BP 90/52; PULSE 69; RESP 14; TEMP 36.1; O2SAT 96
[2020-04-22 20:58] VITALS: RESP 12
[2020-04-22 21:55] VITALS: BP 99/54; PULSE 68; RESP 16; TEMP 36.2; O2SAT 96
[2020-04-22] MEDS: Acetaminophen 500 MG TAB 1000 MG PO (21:56)
--- NOTE | 2020-04-22 22:18 | NUR.NOTE ---
Nursing Note: [place] collar applied per provider request. Information regarding use and instructions sent home with DC paper work. Vitals stable at DC. PT sent with [facility] home.
== END 2020-04-22 22:28 | disposition left against medical advice (07) ==
PROVIDERS: Emergency Provider Physician Assistant; PCP Family Medicine
DX: S01.111A Laceration without foreign body of right eyelid and periocular area, initial encounter (principal); M54.2 Cervicalgia; M25.511 Pain in right shoulder; F10.10 Alcohol abuse, uncomplicated; R29.6 Repeated falls; Z60.2 Problems related to living alone; Z53.29 Procedure and treatment not carried out because of patient's decision for other reasons; I10 Essential (primary) hypertension; W19.XXXA Unspecified fall, initial encounter
CPT/HCPCS: 12011; L0172

== ENCOUNTER 2020-04-25 10:45 | Emergency (ER) | payer OTHER, SELFPAY ==
[2020-04-25 10:48] VITALS: BP 175/76; PULSE 92; RESP 18; TEMP 36.5; O2SAT 99
--- NOTE | 2020-04-25 11:00 | DI.RAD_ITS ---
EXAM: XR SHOULDER RT COMPLETE 2+V CLINICAL HISTORY: pain, fall TECHNIQUE: COMPARISON: CR XR SHOULDER RT COMPLETE 2+V from 01/30/[address] CHEST/ABD/PEL WO from 02/07/[address] CHEST/ABD/PEL WO from 02/07/[address] CHEST/ABD/PEL W from 04/13/[address] CHEST/ABD/PEL W from 04/13/[address] CHEST/ABD/PEL W from 04/19/2020 FINDINGS: Four views were obtained. Previously described humeral head fracture again noted, no change in align ment comparison with examination of January 29. Deformity of the distal clavicle also noted, there may be a new fracture through an old healed distal clavicular fracture with mild displacement. This reg ion was incompletely seen on recent CT of April 19 nor of April 13. No definite fracture of ac [place] nature was seen on visualized portions of distal clavicle on these examinations. IMPRESSION: Suspect acute fracture distal right clavicle, extending through a previously noted healed clavicular fracture. RADIATION DOSE DELIVERED: Total DLP
--- NOTE | 2020-04-25 11:00 | DI.RAD_ITS ---
EXAM: XR RIBS RT PA CHEST 3V CLINICAL HISTORY: fall, pain TECHNIQUE: COMPARISON: CT CT CHEST/ABD/PEL W from 04/13/2020 CR XR CHEST 2V PA LATERAL from 04/14/2020 FINDINGS: PA chest and additional views of the right ribs were obtained. CT from April 13 and showed m ultiple bilateral rib fractures. Findings are grossly unchanged on today's examination. No definite additional rib fracture seen. No pleural effusion or pneumothorax. IMPRESSION: Stable multiple bilateral rib fractures. RADIATION DOSE DELIVERED: Total DLP
--- NOTE | 2020-04-25 11:03 | ED.GENADUL_ITS ---
Discharge Plan Disposition Patient Disposition: HOME Condition: Stable Discharge Details Chief Complaint: Orthopedic Clinical Impression: Closed fracture of right clavicle, Incidental pulmonary nodule, Closed right humeral fracture Primary Care Provider: Lavelle Galindo ED Provider: James Crenshaw Home Meds and New Rx's Prescriptions: Continued meclizine 25 mg tablet 25 mg PO TID PRN (Reason: dizziness) Qty: 30 RF: 1 venlafaxine 37.5 mg capsule,extended release 24hr 37.5 mg PO DAILY Qty: 30 RF: 11 venlafaxine 150 mg capsule,extended release 24hr 150 mg PO DAILY Qty: 30 RF: 11 hydrochlorothiazide 12.5 mg tablet 12.5 mg PO DAILY Qty: 90 RF: 3 gabapentin 300 mg capsule 300 mg PO BID Qty: 90 RF: 5 metoprolol tartrate 50 mg tablet 50 mg PO BID Qty: 180 RF: 3 sennosides [Senokot] 8.6 mg tablet 8.6 mg PO BID Qty: 180 RF: 3 magnesium oxide 400 mg magnesium capsule 400 mg PO BID Qty: 180 RF: 3 amlodipine 10 mg tablet 10 mg PO DAILY Qty: 90 RF: 3 pantoprazole 40 mg tablet,delayed release (DR/EC) 40 mg PO DAILY Qty: 90 RF: 3 Ensure Active High Protein Liquid 414 ml PO DAILY Qty: 02747 RF: 11 multivitamin [Multiple Vitamins] Tablet 1 tab PO DAILY Qty: 90 RF: 3 potassium chloride [Klor-Con M10] 10 mEq tablet,ER particles/crystals 10 meq PO DAILY Qty: 90 RF: 3 dicyclomine 10 mg capsule 10 mg PO QID PRN (Reason: belly pain) Qty: 40 RF: 0 sucralfate 1 gram tablet 1 g PO AC & HS Qty: 120 RF: 5 ipratropium-albuterol 0.5 mg-3 mg(2.5 mg base)/3 mL solution for nebulization 3 ml IH QID PRN (Reason: shortness of breath) Qty: 90 RF: 3 fluticasone propionate 50 mcg/actuation spray,suspension 1 spray NS daily prn Qty: 9.9 RF: 2 celecoxib [Celebrex] 100 mg capsule 100 mg PO BID Qty: 20 RF: 0 folic acid 1 mg Tablet 1 mg PO DAILY Qty: 14 RF: 0 Refresh Plus 0.5 % Dropperette 1 drp OU Q4H WHILE AWAKE Qty: 30 RF: 0 thiamine mononitrate (vit B1) [Vitamin B-1 (mononitrate)] 100 mg Tablet 100 mg PO DAILY Qty: 10 RF: 0 ondansetron HCl [Zofran] 4 mg tablet 4 mg PO Q8H Qty: 12 RF: 0 ibuprofen 400 mg tablet 400 mg PO Q6H PRNQty: 60 RF: 3 Discharge Instructions Instructions: Clavicle Fracture (ED), Fall Prevention for Older Adults (ED) Additional Instructions: Please follow-up with your primary care physician regarding your pulmonary nodule noted on CT. Please wear sling and follow-up with orthopedics. Call orthopedics to schedule an appointment. Please contact your primary care physician to arrange follow-up. Return to the ER for any worsening or new concerning symptoms. Referrals: [facility] [Provider Group] Lavelle Galindo [Primary Care Provider] - Discharge Data Discharge Date/Time-TO BE ENTERED AT DEPARTURE: 04/25/20 14:31 Medical Decision Making 1134?? 74-year-old female with history of frequent falls, here 3 days after being seen in the ED for a fall with neck pain and shoulder pain, refused imaging at that time, returns now agreeable to recommended imaging. Concern for cervical spine fracture. Plan to obtain CT of the cervical spine, consider shoulder fracture and will x-ray, consider worsening rib fracture or pneumothorax will x-ray. 1530--CT of the neck interpreted by radiology: No acute injury chest x-ray interpreted by radiology: Multiple bilateral rib fractures that have been seen on prior x-ray with no acute injury, no pneumothorax X-ray of the right shoulder reviewed and interpreted by radiology: Known humeral head fracture, unchanged, there does appear to be acute on prior healed fracture of the distal clavicle. C-collar removed and C-spine cleared by me. Sling provided. Usual customary discharge instructions were reviewed with the patient. I did include instructions for fall prevention which hopefully home health can assist with prevention in the home. HPI General Mode of arrival: ambulatory . Date/Time Provider Initiated Documentation: 04/25/20 10:54 . Limitations to Documentation: no limitations . Information obtained by: patient . HPI Narrative: 74-year-old female with history of alcoholism, frequent falls, here with chief complaint of right shoulder pain. Patient was seen here on 04/22/2024 fall. She had posterior neck pain and midline cervical tenderness and right shoulder pain. CT imaging and x- ray was recommended and declined by patient as part of an informed refusal. She was discharged in a cervical collar and with a sling. She has not been wearing the cervical collar. She notes continued pain. She is here at the [facility] who noted that they would not see her unless she had recurrent recommended imaging. Patient also notes some right-sided chest pain. She states that she has known right-sided rib fractures and that pain worsened after recent fall. She denies shortness of breath. No abdominal pain or pelvic pain. Patient denies headache. Related Data Home Medications Medication Instructions Recorded Confirmed folic acid 1 mg PO DAILY #14 tab 08/11/18 04/25/20 Refresh Plus 1 drp OU Q4H WHILE AWAKE #30 each 06/20/19 04/25/20 venlafaxine 150 mg 150 mg PO DAILY #30 cap 06/27/19 04/25/20 capsule,extended release 24 hr venlafaxine 37.5 mg 37.5 mg PO DAILY #30 cap 06/27/19 04/25/20 capsule,extended release 24 hr amlodipine 10 mg tablet 10 mg PO DAILY #90 tab 06/28/19 04/25/20 magnesium oxide 400 mg PO BID #180 cap 07/17/19 04/25/20 food supplemt, lactose-reduced 414 ml PO DAILY #50534 ml 08/24/19 04/25/20 pantoprazole 40 mg tablet,delayed 40 mg PO DAILY #90 tab 08/24/19 04/25/20 release gabapentin 300 mg capsule 300 mg PO BID #90 cap 08/28/19 04/25/20 hydrochlorothiazide 12.5 mg tablet 12.5 mg PO DAILY #90 tab 08/28/19 04/25/20 metoprolol tartrate 50 mg tablet 50 mg PO BID #180 tab 08/28/19 04/25/20 sennosides 8.6 mg tablet 8.6 mg PO BID #180 tab 08/28/19 04/25/20 meclizine 25 mg tablet 25 mg PO TID PRN #30 tab 09/14/19 04/25/20 multivitamin 1 tab PO DAILY #90 tab 09/14/19 04/25/20 potassium chloride 10 mEq 10 meq PO DAILY #90 tab 09/14/19 04/25/20 tablet,extended release(part/cryst) dicyclomine 10 mg capsule 10 mg PO QID PRN #40 cap 11/06/19 04/25/20 sucralfate 1 gram tablet 1 g PO AC & HS #120 tab 11/06/19 04/25/20 thiamine mononitrate (vit B1) 100 mg PO DAILY #10 tab 11/23/19 04/25/20 [Vitamin B-1 (mononitrate)] ipratropium 0.5 mg-albuterol 3 mg 3 ml IH QID PRN #90 ml 01/04/20 04/25/20 (2.5 mg base)/3 mL nebulization soln ondansetron HCl [Zofran] 4 mg PO Q8H #12 tab 02/07/20 04/25/20 fluticasone propionate 50 1 spray NS daily prn #9.9 ml 03/25/20 04/25/20 mcg/actuation nasal spray,suspension ibuprofen 400 mg PO Q6H PRN #60 tab 04/14/20 04/25/20 celecoxib 100 mg capsule 100 mg PO BID #20 cap 04/15/20 04/25/20 Previous Rx's Medication Instructions Recorded folic acid 1 mg PO DAILY #14 tab 08/11/18 Refresh Plus 1 drp OU Q4H WHILE AWAKE #30 each 06/20/19 venlafaxine 150 mg 150 mg PO DAILY #30 cap 06/27/19 capsule,extended release 24 hr venlafaxine 37.5 mg 37.5 mg PO DAILY #30 cap 06/27/19 capsule,extended release 24 hr amlodipine 10 mg tablet 10 mg PO DAILY #90 tab 06/28/19 magnesium oxide 400 mg PO BID #180 cap 07/17/19 food supplemt, lactose-reduced 414 ml PO DAILY #54660 ml 08/24/19 pantoprazole 40 mg tablet,delayed 40 mg PO DAILY #90 tab 08/24/19 release gabapentin 300 mg capsule 300 mg PO BID #90 cap 08/28/19 hydrochlorothiazide 12.5 mg tablet 12.5 mg PO DAILY #90 tab 08/28/19 metoprolol tartrate 50 mg tablet 50 mg PO BID #180 tab 08/28/19 sennosides 8.6 mg tablet 8.6 mg PO BID #180 tab 08/28/19 meclizine 25 mg tablet 25 mg PO TID PRN #30 tab 09/14/19 multivitamin 1 tab PO DAILY #90 tab 09/14/19 potassium chloride 10 mEq 10 meq PO DAILY #90 tab 09/14/19 tablet,extended release(part/cryst) dicyclomine 10 mg capsule 10 mg PO QID PRN #40 cap 11/06/19 sucralfate 1 gram tablet 1 g PO AC & HS #120 tab 11/06/19 thiamine mononitrate (vit B1) 100 mg PO DAILY #10 tab 11/23/19 [Vitamin B-1 (mononitrate)] ipratropium 0.5 mg-albuterol 3 mg 3 ml IH QID PRN #90 ml 01/04/20 (2.5 mg base)/3 mL nebulization soln ondansetron HCl [Zofran] 4 mg PO Q8H #12 tab 02/07/20 fluticasone propionate 50 1 spray NS daily prn #9.9 ml 03/25/20 mcg/actuation nasal spray,suspension ibuprofen 400 mg PO Q6H PRN #60 tab 04/14/20 celecoxib 100 mg capsule 100 mg PO BID #20 cap 04/15/20 Allergies Allergy/AdvReac Type Severity Reaction Status Date / Time Penicillins Allergy Mild Rash Verified 04/25/20 10:51 ramipril Allergy Unknown ITCHING Verified 04/25/20 10:51 meperidine [From Demerol] AdvReac Severe Nausea Verified 04/25/20 10:51 bupropion AdvReac Mild GI upset Verified 04/25/20 10:51 AMBER Inhibitors AdvReac Unknown COUGH Verified 04/25/20 10:51 alendronate sodium AdvReac Unknown GI Distress Verified 04/25/20 10:51 clarithromycin AdvReac Unknown intolerant Verified 04/25/20 10:51 paroxetine AdvReac Unknown Diarrhea Verified 04/25/20 10:51 General Stated Complaint: Orthopedic JORDAN: 3 Review of Systems All systems reviewed & are unremarkable except as noted in HPI and below Constitutional Constitutional: Denies fever(s) Gastrointestinal Gastrointestinal: Denies nausea and Denies vomiting Musculoskeletal Musculoskeletal: Reports as per HPI PFSH Medical History Alcohol abuse (Acute) Alcoholic ketosis (Resolved) Allergic rhinitis (Chronic) Anemia (Chronic 12/20/16) Back pain, chronic (Chronic) CAP (community acquired pneumonia) (Resolved) Cataract (Chronic 11/07/15) Cervical radicular pain (Chronic) neck pain and DJD [facility] Chronic alcoholic gastritis (Chronic 10/12/17) pls refrain from alcohol Chronic diarrhea (Acute) Contusion of left little finger (Acute) Corneal ulcer, right (Inactive ~08/23/18) 08/23/18; [facility] Depression (Chronic) Elev transaminase/LDH (Chronic) due to alcohol Fall (Acute) Fall as cause of accidental injury at home as place of occurrence (Acute) Falling (Acute) Genital herpes simplex (Chronic) recurrent gential; suppressive Valtrex GERD (gastroesophageal reflux disease) (Chronic) GI bleed (Resolved 12/20/16) Headache (Resolved) Hyperlipidemia (Chronic) Hypertension (Chronic) high today; she will check readings at home 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 Multiple rib fractures (Resolved) 03/11/19 [facility] Non-cardiac chest pain (Resolved 09/21/16) [facility] 09/21/16 NEGATIVE MP Osteoarthritis (Chronic) Osteopenia (Chronic) 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) Peripheral edema (Acute) Pleural effusion on left (Resolved) 03/11/19 [facility] Right rib fracture (Resolved) Sciatica (Chronic) right, epidural injuections [facility] Tendinitis of left rotator cuff (Inactive) Tubular adenoma of colon (Chronic 01/28/17) Urinary incontinence (Chronic) 01/24/13 urethral suspension and sling at [facility] (bladder suspension 1991) Wernicke encephalopathy (Chronic) Surgical History Bladder Surgery suspension Colonoscopy - MAC (01/28/17) EGD - MAC (12/20/16) History of bilateral ligation of fallopian tubes (Inactive) Ligation of fallopian tube Repair bladder injury, simple Family History Mother No problems noted. Father , DROWNED at age 50. No problems noted. Sister Personal history of malignant neoplasm MELANOMA Sister No problems noted. Grandfather Personal history of malignant neoplasm STOMACH Grandfather Personal history of malignant neoplasm PROSTATE Grandmother Heart disease IN Acute ill-defined cerebrovascular disease Grandmother Personal history of malignant neoplasm UTERINE Aunt , IN Heart disease IN Aunt , [place] Heart disease Brother No problems noted. Social History Smoking/Tobacco Use Status: Former Tobacco Use Alcohol Intake: current Alcohol Intake frequency: 3 or more drinks per day Alcohol type: hard liquor Drug use: Never Substance use type: does not use Details: Last acoholic beverage was 2pm this afternoon. Current gender identity: female Do you feel safe at home: Yes Do you feel safe in your relationship?: Yes Additional Social history: Exam Const General: cooperative and no acute distress HENMT Head: normocephalic Mouth: moist mucous membranes Eyes Conjunctivae: normal conjunctivae Sclera: normal sclerae Neck Neck: trachea midline and supple Other: Patient in collar Chest Chest: tenderness rib (Right lateral mid to upper) Resp Auscultation: clear to auscultation bilaterally, no rales, no rhonchi and no wheezes Cardio Rate: regular rate and not tachycardic Rhythm: regular rhythm GI Palpation: soft, not firm, no guarding, no masses, not rigid and nontender Back/Spine/Pelvis Cervical Spine: cervical spinal tenderness Skin General skin exam: no rashes or lesions noted Neuro General: patient alert, patient awake, patient oriented x3 and tone normal Extrem General: no edema and other (Sensation intact, motor intact, 2+ radial) Right upper extremity: shoulder/upper arm Details: tenderness Location: of the proximal humerus and abnormal ROM Details: pain with passive ROM Details: with ABduction, with extension and with internal rotation Psych Appearance: grossly normal Mental Status: mental status grossly normal Speech and Movement: speech and movement normal Course Vital Signs Vital signs: Vital Signs Temperature 36.5 C 04/25/20 10:48 Pulse 92 H 04/25/20 10:48 Respiratory Rate 18 04/25/20 10:48 Blood Pressure 175/76 H 04/25/20 10:48 Pulse Oximetry 99 04/25/20 10:48 Temperature 36.5 C 04/25/20 10:48 Temperature Source Temporal Artery Scan 04/25/20 10:48 Pulse 92 H 04/25/20 10:48 Respiratory Rate 18 04/25/20 10:48 Blood Pressure 175/76 H 04/25/20 10:48 Blood Pressure Position Sitting 04/25/20 10:48 Pulse Oximetry 99 04/25/20 10:48 Oxygen Delivery Method Room Air 04/25/20 10:48 Oxygen Flow Rate 0 04/25/20 10:48 Pain Level 6 04/25/20 10:48
--- NOTE | 2020-04-25 12:26 | DI.CT_ITS ---
EXAM: CT CERVICAL SPINE WO CLINICAL HISTORY: pain, fall TECHNIQUE: COMPARISON: CT CT CHEST/ABD/PEL WO from 02/07/[address] CHEST/ABD/PEL W from 04/13/[address] HEAD CERVICAL SPINE WO from 04/19/2020 FINDINGS: CT examination cervical spine was performed. Visualized lung apices are clear except for previously mentioned mildly irregular 1 cm in diameter right apical lung lesion. Follow-up chest CT recommended in 12 months. There are severe degenerative changes of cervical spine with marked hypertrophic changes facet joints and vertebral endplates and a moderate cervical kyphosis. No gross central canal spinal stenosis se en. Prevertebral soft tissues appear intact. No cervical mass or adenopathy. No acute fracture or dislocation. IMPRESSION: Severe DJD, no evidence of acute fracture or dislocation. Note is again made of 1 cm stable right upper lobe lung lesion, follow-up chest CT recommended 12 mon ths. RADIATION DOSE DELIVERED: 321.4mGy.cm Total DLP
[2020-04-25] MEDS: Lidocaine 5% Patch 1 PATCH TP (13:30)
[2020-04-25 13:41] VITALS: BP 142/60; PULSE 91; TEMP 36; O2SAT 99
== END 2020-04-25 14:31 | disposition home or self-care (01) ==
PROVIDERS: Emergency Provider Student in an Organized Health Care Education/Training Program; PCP Family Medicine
DX: S42.031A Displaced fracture of lateral end of right clavicle, initial encounter for closed fracture (principal); S42.291A Other displaced fracture of upper end of right humerus, initial encounter for closed fracture; W07.XXXA Fall from chair, initial encounter; F10.10 Alcohol abuse, uncomplicated; R29.6 Repeated falls; Z60.2 Problems related to living alone; I10 Essential (primary) hypertension
CPT/HCPCS: 23500; 99284; 71046; 71100; 72125; 73030; 99282; L3650

== ENCOUNTER 2020-05-08 10:23 | Inpatient (IN) | payer OTHER, SELFPAY ==
[2020-05-08] VITALS (16 sets, daily range): BP systolic 127–164; BP diastolic 72–91; PULSE 0–118; RESP 18–19; TEMP 36.6–36.8; O2SAT 94–98
--- NOTE | 2020-05-08 10:26 | ED.GENADUL_ITS ---
Discharge Plan Disposition Patient Disposition: [facility] INPATIENT Condition: Poor Discharge Details Chief Complaint: Nk/Back Pain Clinical Impression: Rib pain on right side, UTI (urinary tract infection), Hypomagnesemia, Multiple fractures of ribs, Fall at home, AMBER (acute kidney injury) Admit Date/Time: 05/08/20 14:06 Admit Provider: Aydin Joy Attending Provider: Aydin Joy Primary Care Provider: Lavelle Galindo ED Provider: Tash Servin Discharge Data Discharge Date/Time-TO BE ENTERED AT DEPARTURE: 05/08/20 15:20 Medical Decision Making Patient is a 75 year old female, well known to myself and department, presenting after multiple falls. She has had increaed frequency of visits recently, all stemming around falls. Patient has long history of ETOH abuse, last had drink last night. States that she is falling frequently associated with broken furniture. She comes in today with uncontrolled pain. Pain is maximal along the posterior right side of chest wall. States she has pjain with cough, deep insp iration but no shortness of brteath when at rest. Denies anterior CP. No fevers/chills. EMS reports that they noted multiple piece of broken furniture in her house and are happy to help the patient fix these as they continue to be sources of falls for the patient. On exam, patient actually appears to be quite clearheaded. Often when I see the patient she can be difficult to communicate with secondary to where she is at and her cycle with alcohol. However, she is quite clear and pleasant today. Neurologic exam is intact. She has 2 focal areas of swelling and ecchymosis with palpable rib fractures underneath. Is not appear to be mobile, they may be the old fractures as previously reported. She does have good lung sounds although she has crackles noted in the right lower lobe. I do feel that with the patient's history, CT imaging would be appropriate. I discussed this plan with the patient who is in agreement. With the patient's past medical history and chronic alcohol abuse, with the frequent falls, I am quite concerned about getting the patient on narcotics and feel that this is inappropriate. Will try Lidoderm patch and give nonnarcotic options to help with pain management. Patient reports that she is interested in going to a rehab facility. I did express my concerns with her that she is not safe at home and is having difficulty caring for herself. Feel that a time in a rehabilitation center, particularly with assistance of physical therapy, would be of benefit and likely be able to get her to a stronger state so she may be more successful at home. A time with out alcohol may also be of benefit hopefully lead to long-term abstinence. Will consult with care management as patient is agreeable to this. Labs reviewed. Patient is anemic with a hemoglobin of 8.8. I not see any active evidence of bleeding but CT remains pending. She has been anemic histo rically and is likely associate with chronic disease. Coags are stable. Potassium is low at 3.1, will begin replenishing this here. Creatinine is 1.9 which is elevated from the patient's baseline which is typically around 0.8. She does not report any recent change in her fluid intake, unclear what is prompting this acute kidney injury. AST is elevated at 80, alk phos of 207. Alcohol 185. UA is still pending. Also add on a magnesium. FINDINGS: Tracheobronchial tree: Patent where visualized. Mediastinum and Vilma: No dominant adenopathy or fluid collection. Pulmonary parenchyma: The right upper lobe nodule again noted which has been seen on multiple prior exams including a CT of the neck from 2015. Dependent changes are seen bilaterally. Pleura: No effusion or pneumothorax. Heart: The heart is not dilated. Mild coronary artery calcifications are seen. Aorta: Ascending aorta measures 4 cm in maximal dimension.. Upper abdomen: Fatty liver Lymph nodes: Within normal limits. Bones: Multiple bilateral old and subacute rib fractures. No acute rib fractures are identified. No spine fracture is seen. Soft tissues: Unremarkable. IMPRESSION: Old bilateral rib fractures. Stable right upper lobe nodule. No acute abnormality is identified. Discussed these findings with the patient. I did speak with care management who also spoke with the patient. Hopes is to get the patient to a long-term care facility for continued therapy and treatment of her chronic pain and improve her mobility so she may be safe at home. Patient does have an acute kidney injury. UA is concerning for UTI. Consulted with hospitalist, Dr. field, who agrees to admission. Discussed this plan with patient who is in agreement. All her questions and concerns were addressed. She is eating, conversant and appears comfortable here. HPI General Mode of arrival: EMS . Date/Time Provider Initiated Documentation: 05/08/20 10:26 . Limitations to Documentation: no limitations . Information obtained by: patient, EMS, RN notes reviewed and old records reviewed . HPI Narrative: Patient is a 75-year-old female, well-known to myself in the department, presenting today after fall. Patient has had multiple falls recently and has a known right clavicle fracture, right humeral fracture and multiple rib fractures bilaterally in various stages of healing. She reports that today she fell out of her chair, both of her recliners are currently broken which she reports is increasing her frequency of falls. She reports she last drank alcohol yesterday. She denies any recent head injury. No headache. Denies any cough, fevers or chills. She does report feeling shortness of breath but this seems to be more pain driven associated with deep inspiration pain along the posterior left side of her chest wall. Denies any anterior chest pain. Denies headache, sensory deficit, weakness. Related Data Home Medications Medication Instructions Recorded Confirmed folic acid 1 mg PO DAILY #14 tab 08/11/18 05/08/20 Refresh Plus 1 drp OU Q4H WHILE AWAKE #30 each 06/20/19 05/08/20 venlafaxine 150 mg 150 mg PO DAILY #30 cap 06/27/19 05/08/20 capsule,extended release 24 hr venlafaxine 37.5 mg 37.5 mg PO DAILY #30 cap 06/27/19 05/08/20 capsule,extended release 24 hr amlodipine 10 mg tablet 10 mg PO DAILY #90 tab 06/28/19 05/08/20 magnesium oxide 400 mg PO BID #180 cap 07/17/19 05/08/20 food supplemt, lactose-reduced 414 ml PO DAILY #07125 ml 08/24/19 05/08/20 pantoprazole 40 mg tablet,delayed 40 mg PO DAILY #90 tab 08/24/19 05/08/20 release gabapentin 300 mg capsule 300 mg PO BID #90 cap 08/28/19 05/08/20 hydrochlorothiazide 12.5 mg tablet 12.5 mg PO DAILY #90 tab 08/28/19 05/08/20 metoprolol tartrate 50 mg tablet 50 mg PO BID #180 tab 08/28/19 05/08/20 sennosides 8.6 mg tablet 8.6 mg PO BID #180 tab 08/28/19 05/08/20 meclizine 25 mg tablet 25 mg PO TID PRN #30 tab 09/14/19 05/08/20 multivitamin 1 tab PO DAILY #90 tab 09/14/19 05/08/20 potassium chloride 10 mEq 10 meq PO DAILY #90 tab 09/14/19 05/08/20 tablet,extended release(part/cryst) dicyclomine 10 mg capsule 10 mg PO QID PRN #40 cap 11/06/19 05/08/20 sucralfate 1 gram tablet 1 g PO AC & HS #120 tab 11/06/19 05/08/20 thiamine mononitrate (vit B1) 100 mg PO DAILY #10 tab 11/23/19 05/08/20 [Vitamin B-1 (mononitrate)] ipratropium 0.5 mg-albuterol 3 mg 3 ml IH QID PRN #90 ml 01/04/20 05/08/20 (2.5 mg base)/3 mL nebulization soln ondansetron HCl [Zofran] 4 mg PO Q8H #12 tab 02/07/20 05/08/20 fluticasone propionate 50 1 spray NS daily prn #9.9 ml 03/25/20 05/08/20 mcg/actuation nasal spray,suspension ibuprofen 400 mg PO Q6H PRN #60 tab 04/14/20 05/08/20 celecoxib 100 mg capsule 100 mg PO BID #20 cap 04/15/20 05/08/20 Previous Rx's Medication Instructions Recorded folic acid 1 mg PO DAILY #14 tab 08/11/18 Refresh Plus 1 drp OU Q4H WHILE AWAKE #30 each 06/20/19 venlafaxine 150 mg 150 mg PO DAILY #30 cap 06/27/19 capsule,extended release 24 hr venlafaxine 37.5 mg 37.5 mg PO DAILY #30 cap 06/27/19 capsule,extended release 24 hr amlodipine 10 mg tablet 10 mg PO DAILY #90 tab 06/28/19 magnesium oxide 400 mg PO BID #180 cap 07/17/19 food supplemt, lactose-reduced 414 ml PO DAILY #81553 ml 08/24/19 pantoprazole 40 mg tablet,delayed 40 mg PO DAILY #90 tab 12/27/19 release gabapentin 300 mg capsule 300 mg PO BID #90 cap 08/28/19 hydrochlorothiazide 12.5 mg tablet 12.5 mg PO DAILY #90 tab 08/28/19 metoprolol tartrate 50 mg tablet 50 mg PO BID #180 tab 08/28/19 sennosides 8.6 mg tablet 8.6 mg PO BID #180 tab 08/28/19 meclizine 25 mg tablet 25 mg PO TID PRN #30 tab 09/14/19 multivitamin 1 tab PO DAILY #90 tab 09/14/19 potassium chloride 10 mEq 10 meq PO DAILY #90 tab 09/14/19 tablet,extended release(part/cryst) dicyclomine 10 mg capsule 10 mg PO QID PRN #40 cap 11/06/19 sucralfate 1 gram tablet 1 g PO AC & HS #120 tab 11/06/19 thiamine mononitrate (vit B1) 100 mg PO DAILY #10 tab 11/23/19 [Vitamin B-1 (mononitrate)] ipratropium 0.5 mg-albuterol 3 mg 3 ml IH QID PRN #90 ml 01/04/20 (2.5 mg base)/3 mL nebulization soln ondansetron HCl [Zofran] 4 mg PO Q8H #12 tab 02/07/20 fluticasone propionate 50 1 spray NS daily prn #9.9 ml 03/25/20 mcg/actuation nasal spray,suspension ibuprofen 400 mg PO Q6H PRN #60 tab 04/14/20 celecoxib 100 mg capsule 100 mg PO BID #20 cap 04/15/20 Allergies Allergy/AdvReac Type Severity Reaction Status Date / Time Penicillins Allergy Mild Rash Verified 05/08/20 10:34 ramipril Allergy Unknown ITCHING Verified 05/08/20 10:34 meperidine [From Demerol] AdvReac Severe Nausea Verified 05/08/20 10:34 bupropion AdvReac Mild GI upset Verified 05/08/20 10:34 AMBER Inhibitors AdvReac Unknown COUGH Verified 05/08/20 10:34 alendronate sodium AdvReac Unknown GI Distress Verified 05/08/20 10:34 clarithromycin AdvReac Unknown intolerant Verified 05/08/20 10:34 paroxetine AdvReac Unknown Diarrhea Verified 05/08/20 10:34 General JORDAN: 3 Review of Systems Constitutional Constitutional: Reports as per HPI, Denies chills, Reports fatigue, Denies f ever(s), Denies headache(s) and Reports weakness Eyes Eyes: Reports as per HPI, Denies blurry vision, Denies change in vision and Denies loss of vision ENT Ears, Nose, Mouth, and Throat: Denies abnormal hearing and Denies headache(s) Cardiovascular Cardiovascular: Reports as per HPI, Denies chest pain, Reports dyspnea and Denies dyspnea on exertion Respiratory Respiratory: Reports as per HPI, Denies cough, Reports pain on inspiration, Reports pain with cough, Reports dyspnea and Denies dyspnea on exertion Gastrointestinal Gastrointestinal: Reports as per HPI, Denies abdominal pain, Denies nausea and Denies vomiting Genitourinary Genitourinary: Reports as per HPI and Reports urinary incontinence (chronic) Musculoskeletal Musculoskeletal: Reports as per HPI Integumentary/Breasts Skin/Breast: Reports as per HPI and Reports unusual bruising Neurologic Neurologic: Reports as per HPI, Denies abnormal hearing, Denies abnormal moveme nts, Denies abnormal speech, Denies headache(s), Denies lack of coordination, Denies localized weakness, Denies loss of vision, Denies seizure-like activity, Denies paresthesias and Reports weakness Endocrine Endocrine: Reports fatigue [facility] Medical History (Updated 05/11/20 @ 20:40 by CELINA Villarreal) Adjustment disorder with depressed mood AMBER (acute kidney injury) Alcohol abuse Alcoholic gastritis without bleeding Alcoholic ketosis Allergic rhinitis Anemia (12/20/16) Back pain, chronic Calcific tendinitis of left shoulder CAP (community acquired pneumonia) Cataract (11/07/15) Cervical radicular pain neck pain and [facility]D [facility] 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) pls refrain from alcohol Chronic alcoholism she will not stop drinking unless she checks with me, so that we can help her avert withdrawal I do not think she is capable on her own--she would need placement to achieve required goal of 3 months of sobriety Chronic diarrhea Closed displaced fracture of proximal phalanx of right index finger with routine healing (06/03/17) Closed right humeral fracture Contusion of left little finger Corneal ulcer, right (~08/23/18) 08/23/18; [facility] Dehydration Depression Diarrhea Discharge planning issues DVT prophylaxis Elev transaminase/LDH due to alcohol Epigastric abdominal pain Fall as cause of accidental injury at home as place of occurrence Genital herpes simplex recurrent gential; suppressive Valtrex GERD (gastroesophageal reflux disease) GI bleed (12/20/16) Head contusion Headache History of alcohol abuse Humerus fracture (09/12/19) Right Hyperlipidemia Hypertension Incidental lung nodule, greater than or equal to 8mm 1cm, spiculated, stable for many years, recommend f/u in 6 mo Macrocytosis (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 Multiple rib fractures 03/11/19 [facility] Nausea and vomiting in adult Non-cardiac chest pain (09/21/16) [facility]16 NEGATIVE MP Osteoarthritis Osteopenia Palliative care patient (03/21/17) Pancreatitis, alcoholic, acute Peripheral edema Pleural effusion on left 03/11/19 [facility] Presacral mass (~09/15/18) 09/15/18 [facility] Right rib fracture Sacral mass Sciatica right, epidural injuections [facility] Tendinitis of left rotator cuff Tubular adenoma of colon (01/28/17) Urinary incontinence 01/24/13 urethral suspension and sling [place] [facility] [place] (bladder suspension 1991) UTI (urinary tract infection) Vision loss of right eye 08/17/18;[facility] Wernicke encephalopathy Surgical History (Updated 05/11/20 @ 08:52 by Pat Navarro NP) Bladder Surgery suspension Colonoscopy - MAC (01/28/17) EGD - MAC (12/20/16) History of bilateral ligation of fallopian tubes History of Surgical Procedure a. Bladder repair. Ligation of fallopian tube Repair bladder injury, simple Family History Mother No problems noted. Father , DROWNED at age 50. No problems noted. Sister Personal history of malignant neoplasm MELANOMA Sister No problems noted. Grandfather Personal history of malignant neoplasm STOMACH Grandfather Personal history of malignant neoplasm PROSTATE Grandmother Heart disease HI Acute ill-defined cerebrovascular disease Grandmother Personal history of malignant neoplasm UTERINE Aunt , HI Heart disease HI Aunt , HI Heart disease Brother No problems noted. Social History Smoking/Tobacco Use Status: Former Tobacco Use Alcohol Intake: current Alcohol Intake frequency: 3 or more drinks per day Alcohol type: hard liquor Drug use: Never Substance use type: does not use Details: Last acoholic beverage was 2pm this afternoon. Current gender identity: female Do you feel safe at home: Yes Do you feel safe in your relationship?: Yes Exam Const General: cooperative, comfortable, no acute distress, well developed, well groomed and ill appearing chronically Nutritional Appearance: average body habitus and malnourished Orientation: alert, awake and oriented x3 [facility] Head: normal to inspection, no palpable skull fracture, normocephalic and atraumatic Ears: hearing grossly normal bilaterally, external ears normal and TM's normal bilaterally General nose exam: external nose normal Face and sinus: normal facial exam (patient has eye patch over right eye) Mouth: oral mucosae normal, lip normal and tongue normal Throat: posterior oropharynx normal Eyes General: appearance normal, both eyes and all related structures (patch over right eye, chronic, wears intermittently) Neck Neck: normal visual inspection, full ROM, no lymphadenopathy, no meningeal signs, trachea midline and supple Chest Chest: no crepitus and tenderness (focal swelling with palpable bony abnormality x 2 posterior right chest wal) Resp Effort & Inspection: normal respiratory effort, able to speak in complete sentences and no respiratory distress Auscultation: crackles on the right at the base, no rales, no rhonchi and no wheezes Cardio Rate: regular rate Rhythm: regular rhythm Heart Sounds: S1 normal and S2 normal GI Inspection: normal to inspection, no abdominal wall ecchymosis, no edema and non-distended Palpation: soft, no hepatosplenomegaly, not firm, no guarding, no pulsatile masses, not rigid and nontender Auscultation: normal bowel sounds Back/Spine/Pelvis Back: no CVA tenderness Cervical Spine: normal cervical lordosis and cervical ROM normal Thoracic/Lumbar Spine: thoracic and lumbar spine normal to inspection, thoraco- lumbar ROM normal, No thoraco-lumbar ROM limited, No thoraco-lumbar spasm and No thoracic spinal tenderness Pelvis: no pain with anterior-posterior compression and no pain with lateral compression Back/spine/pelvis image: 1. 2. areas of swelling, ecchymosis and bony abnormality Skin General skin exam: ecchymosis (multiple areas of eccymosis in various stages of healing) Neuro General: patient alert, patient awake, patient oriented x3, gait normal, tone normal and moves all extremities Cranial Nerves: CN's II-XI intact bilaterally Cognition: normal cognition Speech: speech normal Gait: normal gait Motor: muscle tone normal throughout and strength 5/5 throughout Sensory Exam: no sensory deficits noted (no saddle paresthesias) Extrem General: normal to inspection, full ROM, capillary refill normal, no pedal edema and no calf tenderness Psych Appearance: grossly normal and well kempt Mental Status: mental status grossly normal Speech and Movement: speech and movement normal
--- NOTE | 2020-05-08 11:18 | DI.CT_ITS ---
EXAM: CT CHEST WO CLINICAL HISTORY: multiple falls, contusions/swelling right side TECHNIQUE: Imaging Protocol: Axial computed tomography images with coronal and sagittal reformatted images were created and reviewed CONTRAST MATERIAL: Intravenous: Omnipaque 350 Contrast volume:structured data in ml. COMPARISON: CT HEAD AND CSPINE W/O CONTRAST from 07/18/2015 CT CHEST ABD PELVIS WITH CONTRAST from 10/25/[address] CHEST/ABD/PEL WO from 01/04/[address] CHEST/ABD/PEL W from 07/10/[address] ABDOMEN PELVIS W from 10/30/[address] CHEST/ABD/PEL W from 04/19/2020 CR XR RIBS RT PA CHEST 3V from 04/25/2020 FINDINGS: Tracheobronchial tree: Patent where visualized. Mediastinum and Vilma: No dominant adenopathy or fluid collection. Pulmonary parenchyma: The right upper lobe nodule again noted which has been seen on multiple prior e xams including a CT of the neck from 2014. Dependent changes are seen bilaterally. Pleura: No effusion or pneumothorax. Heart: The heart is not dilated. Mild coronary artery calcifications are seen. Aorta: Ascending aorta measures 4 cm in maximal dimension.. Upper abdomen: Fatty liver Lymph nodes: Within normal limits. Bones: Multiple bilateral old and subacute rib fractures. No acute rib fractures are identified. No s pine fracture is seen. Soft tissues: Unremarkable. IMPRESSION: Old bilateral rib fractures. Stable right upper lobe nodule. No acute abnormality is identified. RADIATION DOSE DELIVERED: Total DLP DATA REPOSITORY: All CT scans at this facility are submitted to the National Radiology Data Registry (NRDR) Dose Index Registry (DIR) with the [employer] (ACR). RADIATION OPTIMIZATION: All CT scans at this facility use at least one of these dose optimization te chniques: automated exposure control; mA and/or kV adjustment per patient size (includes targeted exa ms where dose is matched to clinical indication); or iterative reconstruction.
[2020-05-08 11:54] LABS: Abs Immature Grans 0.02 10^3/uL (0.0-0.06); Absolute Basophil Count 0.03 10^3/uL (0.0-0.2); Absolute Lymphocyte Count 1.05 10^3/uL (1.2-3.4); Absolute Monocyte Count 0.37 10^3/uL (0.1-0.8); Absolute Neutrophil Count 2.29 10^3/uL (1.2-6.7); Basophils % 0.8; HGB 8.8 g/dL (11.2-15.7); Immature Grans % 0.5; Lymphocytes % 27.9; MCH 27.5 pg (27.0-33.0); MCHC 31.4 % (32.0-36.0); MCV 87.5 fL (80-95); MPV 8.8 fL (8.0-11.0); Monocytes % 9.8; Nucleated RBC 0 %; Platelet Count 263 10^3/uL (130-400); RDW 18.6 % (11.7-14.6); RDW-SD 59.7 fL; WBC 3.76 10^3/uL (4.4-10.8)
[2020-05-08 12:03] LABS: ETHANOL BLOOD 185.4 mg/dL (<3)
[2020-05-08] MEDS: Lactated Ringers 1,000 ML 150 ML IV ×3 (12:06→20:41)
[2020-05-08] MEDS: ACETAMINOPHEN 1,000 MG/100 ML BTL 400 MG IVPB (12:07)
[2020-05-08 12:13] LABS: ALT 53 U/L (14-59); AST 80 U/L (15-37); Albumin 3.2 g/dL (3.4-5.0); Alkaline Phosphatase 207 U/L (46-116); Anion Gap 12.7 mmol/L (3-11); BUN 21 mg/dL (7-18); Bilirubin, Total 0.5 mg/dL (0.2-1.0); CO2 26.3 mmol/L (21.0-32.0); Chloride 96 mmol/L (98-107); Estimated GFR 25.84 (mL/min/1.73m2); Glucose 103 mg/dL (74-106); Potassium 3.1 mmol/L (3.5-5.1); Sodium 135 mmol/L (136-145)
[2020-05-08 12:16] LABS: PTT Activated 23.4 sec (21.0-31.4)
[2020-05-08] MEDS: POTASSIUM CHLORIDE 20 MEQ/100 ML BAG 50 MEQ IVPB (13:11)
[2020-05-08] MEDS: Ketorolac 30 MG/ML VIAL IVP (13:46)
[2020-05-08] MEDS: Lidocaine 5% Patch 1 PATCH TP (13:49)
[2020-05-08 15:04] LABS: Magnesium 1.8 mg/dL (1.8-2.4)
[2020-05-08 16:00] LABS: Bilirubin Negative (Negative); Blood Moderate (Negative); Clarity Cloudy (Clear); Glucose Negative (Negative); Ketones Trace mg/dL (Negative); Leukocyte Esterase Large (Negative); Nitrite Negative (Negative); Specific Gravity 1.015 (1.005-1.025); Urobilinogen 0.2 EU/dL (Up TO 0.2); pH 5.5 (5-8)
--- NOTE | 2020-05-08 16:05 | HPE_ITS ---
Date of service: 05/08/20 Time of Service: 16:05 Assessment and Plan Assessment and plan (1) Fall at home: Status: Acute Assessment and plan: Falls with increasing frequency Etoh related. Also wearing an eye patch d/t photosensitivity from recent infection. States she has eye appt next week. (2) Neck pain: Status: Acute Assessment and plan: No fx or dislocation on imaging. Pain control with Celebrex. PT/OT (3) Alcohol abuse: Status: Chronic Assessment and plan: Etoh level 185 CIWA precautions. Phenobarbitol 130mg x 1. PRN Lorazepam. MVI, thiamine, folate supplementation. (4) Adjustment disorder with depressed mood: Status: Acute Assessment and plan: Cont Venlafaxine. (5) Discharge planning issues: Status: Acute Assessment and plan: Currently states she would like further rehab to avoid future falls. She is aware this would include alcohol avoidance. (6) Wernicke encephalopathy: Status: Chronic Assessment and plan: Chronic alcohol abuse. Thiamine daily. (7) Palliative care patient: Status: Chronic Assessment and plan: Records indicate previous palliative care patient I don't believe she is currently. (8) Iron deficiency anemia: Status: Acute Assessment and plan: Check iron level; was 29 on 07/04/2019 Hgb now 8.8; monitor. History of Present Illness History of Present Illness Chief Complaint: Neck and back pain Narrative: This is a 75 y/o female with a h/o Etoh abuse disorder, anemia, epression, transaminitis, GERD, HLD, HTN, Wernicke encephalopathy, multiple fxs including ribs, R humerus and clavicle d/t frequent falls. She presented to the ED via EMS after sitting in a broken recliner then sliding out onto the floor hurting her neck and R lower back. Her last Etoh intake was the day before admission. No CP, palpitations, syncope. No XIONG, vertigo, dizziness. She endorses falling more often over the last month or so. She wishes to seek placement for further rehabilitation. Per EMS report, her home is very filthy. She endorses loose stools yesterday; not today. No melena or hematochezia. Review of Systems All systems reviewed & are unremarkable except as noted in HPI and below [facility] Medical History (Updated 05/08/20 @ 16:41 by Aydin Joy MD) Alcohol abuse Alcoholic ketosis Allergic rhinitis Anemia (12/20/16) Back pain, chronic CAP (community acquired pneumonia) Cataract (11/07/15) Cervical radicular pain neck pain and DJD [facility] 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) pls refrain from alcohol Chronic diarrhea Contusion of left little finger Corneal ulcer, right (~08/23/18) 08/23/18; UV-kb Depression Elev transaminase/LDH due to alcohol Fall Fall as cause of accidental injury at home as place of occurrence Falling Genital herpes simplex recurrent gential; suppressive Valtrex GERD (gastroesophageal reflux disease) GI bleed (12/20/16) Headache Hyperlipidemia Hypertension high today; she will check readings at home Macrocytosis (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 Multiple rib fractures 03/11/19 [facility] Non-cardiac chest pain (09/21/16[place] [facility] [place] Osteoarthritis Osteopenia Palliative care patient (03/21/17) Peripheral edema Pleural effusion on left 03/11/19 [facility] Right rib fracture Sciatica right, epidural injuections [facility] Tendinitis of left rotator cuff Tubular adenoma of colon (01/28/17) Urinary incontinence 01/24/13 [place] [facility] [place] Wernicke encephalopathy Surgical History Bladder Surgery suspension Colonoscopy - MAC (01/28/17) EGD - MAC (12/20/16) History of bilateral ligation of fallopian tubes Ligation of fallopian tube Repair bladder injury, simple Family History Mother No problems noted. Father , DROWNED at age 50. No problems noted. Sister Personal history of malignant neoplasm MELANOMA Sister No problems noted. Grandfather Personal history of malignant neoplasm STOMACH Grandfather Personal history of malignant neoplasm PROSTATE Grandmother Heart disease HI Acute ill-defined cerebrovascular disease Grandmother Personal history of malignant neoplasm UTERINE Aunt , HI Heart disease HI Aunt , HI Heart disease Brother No problems noted. Social History Smoking/Tobacco Use Status: Former Tobacco Use Alcohol Intake: current Alcohol Intake frequency: 3 or more drinks per day Alcohol type: hard liquor Drug use: Never Substance use type: does not use Details: Last acoholic beverage was 2pm this afternoon. Current gender identity: female Do you feel safe at home: Yes Do you feel safe in your relationship?: Yes Meds Home Medications and Allergies Home Medications Medication Instructions Recorded Confirmed Type folic acid 1 mg PO DAILY #14 tab 08/11/18 05/08/20 Rx Refresh Plus 1 drp OU Q4H WHILE AWAKE #30 each 06/20/19 05/08/20 Rx venlafaxine 150 mg 150 mg PO DAILY #30 cap 06/27/19 05/08/20 Rx capsule,extended release 24 hr venlafaxine 37.5 mg 37.5 mg PO DAILY #30 cap 06/27/19 05/08/20 Rx capsule,extended release 24 hr amlodipine 10 mg tablet 10 mg PO DAILY #90 tab 06/28/19 05/08/20 Rx magnesium oxide 400 mg PO BID #180 cap 07/17/19 05/08/20 Rx food supplemt, lactose-reduced 414 ml PO DAILY #77088 ml 08/24/19 05/08/20 Rx pantoprazole 40 mg tablet,delayed 40 mg PO DAILY #90 tab 08/24/19 05/08/20 Rx release gabapentin 300 mg capsule 300 mg PO BID #90 cap 08/28/19 05/08/20 Rx hydrochlorothiazide 12.5 mg tablet 12.5 mg PO DAILY #90 tab 08/28/19 05/08/20 Rx metoprolol tartrate 50 mg tablet 50 mg PO BID #180 tab 08/28/19 05/08/20 Rx sennosides 8.6 mg tablet 8.6 mg PO BID #180 tab 08/28/19 05/08/20 Rx meclizine 25 mg tablet 25 mg PO TID PRN #30 tab 09/14/19 05/08/20 Rx multivitamin 1 tab PO DAILY #90 tab 09/14/19 05/08/20 Rx potassium chloride 10 mEq 10 meq PO DAILY #90 tab 09/14/19 05/08/20 Rx tablet,extended release(part/cryst) dicyclomine 10 mg capsule 10 mg PO QID PRN #40 cap 11/06/19 05/08/20 Rx sucralfate 1 gram tablet 1 g PO AC & HS #120 tab 11/06/19 05/08/20 Rx thiamine mononitrate (vit B1) 100 mg PO DAILY #10 tab 11/23/19 05/08/20 Rx [Vitamin B-1 (mononitrate)] ipratropium 0.5 mg-albuterol 3 mg 3 ml IH QID PRN #90 ml 01/04/20 05/08/20 Rx (2.5 mg base)/3 mL nebulization soln ondansetron HCl [Zofran] 4 mg PO Q8H #12 tab 02/07/20 05/08/20 Rx fluticasone propionate 50 1 spray NS daily prn #9.9 ml 03/25/20 05/08/20 Rx mcg/actuation nasal spray,suspension ibuprofen 400 mg PO Q6H PRN #60 tab 04/14/20 05/08/20 Rx celecoxib 100 mg capsule 100 mg PO BID #20 cap 04/15/20 05/08/20 Rx Allergies Allergy/AdvReac Type Severity Reaction Status Date / Time Penicillins Allergy Mild Rash Verified 05/08/20 10:34 ramipril Allergy Unknown ITCHING Verified 05/08/20 10:34 meperidine [From Demerol] AdvReac Severe Nausea Verified 05/08/20 10:34 bupropion AdvReac Mild GI upset Verified 05/08/20 10:34 AMBER Inhibitors AdvReac Unknown COUGH Verified 05/08/20 10:34 alendronate sodium AdvReac Unknown GI Distress Verified 05/08/20 10:34 clarithromycin AdvReac Unknown intolerant Verified 05/08/20 10:34 paroxetine AdvReac Unknown Diarrhea Verified 05/08/20 10:34 Exam Const General: cooperative and no acute distress Nutritional Appearance: average body habitus Orientation: alert and oriented x3 HENMT Head: normocephalic and atraumatic Ears: hearing grossly normal bilaterally Eyes Eyelids: other (Wearing an eye patch over R eye) Sclera: sclerae normal Neck Neck: normal visual inspection and tender (along R posterior neck) Resp Effort & Inspection: normal respiratory effort Auscultation: clear to auscultation bilaterally Cardio Rate: regular rate Rhythm: regular rhythm Heart Sounds: S1 normal and S2 normal GI Inspection: normal to inspection Palpation: soft Auscultation: normal bowel sounds Skin General skin exam: no rashes or lesions noted Neuro General: patient alert and moves all extremities Cranial Nerves: CN's II-XI intact bilaterally Speech: speech normal Extrem General: no clubbing, cyanosis or edema Psych Appearance: grossly normal Speech and Movement: speech and movement normal Affect: normal affect Attitude: cooperative Results Labs Result diagrams: 05/08/20 11:47 05/08/20 11:47 Labs: Laboratory Results - last 24 hr 05/08/20 05/08/20 05/08/20 11:47 11:47 11:47 WBC RBC Hgb Hct MCV MCH MCHC RDW Plt Count MPV Immature Gran % Neutrophils % Lymphocytes % Monocytes % Eosinophils % Basophils % Nucleated RBC % Absolute Neutrophils Absolute Lymphocytes Absolute Monocytes Absolute Eosinophils Absolute Basophils PT 10.0 INR 1.0 APTT 23.4 Sodium 135 L Potassium 3.1 L Chloride 96 L Carbon Dioxide 26.3 Anion Gap 12.7 H BUN 21 H Creatinine 1.90 H Estimated GFR/1.73 m2 25.84 Glucose 103 Calcium 9.0 Magnesium Total Bilirubin 0.5 AST 80 H ALT 53 Alkaline Phosphatase 207 H Total Protein 7.0 Albumin 3.2 L Urine Color Urine Clarity Urine pH Ur Specific [place] Urine Protein Urine Ketones Urine Blood Urine Nitrite Urine Bilirubin Urine Urobilinogen Ur Leukocyte Esterase Urine Glucose Ethyl Alcohol 185.4 05/08/20 05/08/20 05/08/20 11:47 11:47 15:54 WBC 3.76 L RBC 3.20 L Hgb 8.8 L Hct 28.0 L MCV 87.5 MCH 27.5 MCHC 31.4 L RDW 18.6 H Plt Count 263 MPV 8.8 Immature Gran % 0.5 Neutrophils % 61.0 Lymphocytes % 27.9 Monocytes % 9.8 Eosinophils % 0.0 Basophils % 0.8 Nucleated RBC % 0 Absolute Neutrophils 2.29 Absolute Lymphocytes 1.05 L Absolute Monocytes 0.37 Absolute Eosinophils 0.00 Absolute Basophils 0.03 PT INR APTT Sodium Potassium Chloride Carbon Dioxide Anion Gap BUN Creatinine Estimated GFR/1.73 m2 Glucose Calcium Magnesium 1.8 Total Bilirubin AST ALT Alkaline Phosphatase Total Protein Albumin Urine Color Yellow Urine Clarity Cloudy Urine pH 5.5 Ur Specific [place] 1.015 Urine Protein 30 H Urine Ketones Trace H Urine Blood Moderate H Urine Nitrite Negative Urine Bilirubin Negative Urine Urobilinogen 0.2 Ur Leukocyte Esterase Large H Urine Glucose Negative Ethyl Alcohol Last Vital Signs Temp 36.6 C 05/08/20 14:50 Pulse 118 H 05/08/20 14:51 Resp 18 05/08/20 14:51 BP 148/72 H 05/08/20 14:51 Pulse Ox 95 05/08/20 14:51 COVID-19 Screening Have you,or household,traveled outside [place] in last 14 days?: No Had IN PERSON contact w/suspected or confirmed C-19 person: No
[2020-05-08 16:13] LABS: Bacteria Many HPF (Negative); C & S Indicated? Yes; Mucus Heavy (Negative); WBC >50 HPF (0-5)
[2020-05-08] MEDS: Normal Saline Flush 10 ML SYR IVP (16:57)
[2020-05-08] MEDS: PHENobarbital 130 MG/ML VIAL IVP (16:57)
[2020-05-08] MEDS: Sucralfate 1 GM TAB PO ×2 (16:57→21:43)
[2020-05-08] MEDS: Celecoxib 100 MG CAP PO (19:52)
[2020-05-08] MEDS: Potassium Chloride 10 MEQ TABCR 20 MEQ PO (19:52)
[2020-05-08] MEDS: Gabapentin 300 MG CAP PO (19:53)
[2020-05-08] MEDS: Metoprolol 50 MG TAB PO (19:53)
[2020-05-08] MEDS: Magnesium Oxide 400 MG TAB PO (19:54)
[2020-05-08] MEDS: LORazepam 1 MG TAB PO/SL ×2 (20:07→21:45)
[2020-05-08] MEDS: Acetaminophen 325 MG TAB 650 MG PO (21:43)
[2020-05-08 22:19] LABS: Iron 16 ug/dL (50-170); Total Iron Binding Capacity 371 ug/dL (250-450); Transferrin Sat 4 % (15-50)
[2020-05-09] MEDS: Lactated Ringers 1,000 ML 150 ML IV ×2 (03:23→10:07)
[2020-05-09 05:00] VITALS: BP 166/93; PULSE 82; RESP 18; TEMP 35.3; O2SAT 95
[2020-05-09 06:56] LABS: Abs Immature Grans 0.01 10^3/uL (0.0-0.06); Absolute Basophil Count 0.03 10^3/uL (0.0-0.2); Absolute Lymphocyte Count 1.01 10^3/uL (1.2-3.4); Absolute Monocyte Count 0.52 10^3/uL (0.1-0.8); Absolute Neutrophil Count 1.52 10^3/uL (1.2-6.7); HCT 26.1 % (36.0-46.0); HGB 7.9 g/dL (11.2-15.7); Immature Grans % 0.3; Lymphocytes % 32.7; MCH 27.1 pg (27.0-33.0); MCHC 30.3 % (32.0-36.0); MCV 89.7 fL (80-95); MPV 9.6 fL (8.0-11.0); Monocytes % 16.8; Neutrophils % 49.2; Nucleated RBC 0 %; Platelet Count 221 10^3/uL (130-400); RBC 2.91 10^6/uL (3.93-5.22); RDW 18.6 % (11.7-14.6); RDW-SD 60.6 fL; WBC 3.09 10^3/uL (4.4-10.8)
[2020-05-09 07:16] LABS: ALT 39 U/L (14-59); AST 38 U/L (15-37); Albumin 2.5 g/dL (3.4-5.0); Alkaline Phosphatase 163 U/L (46-116); Anion Gap 6.3 mmol/L (3-11); BUN 21 mg/dL (7-18); Bilirubin, Total 0.9 mg/dL (0.2-1.0); CO2 29.7 mmol/L (21.0-32.0); CREATININE 1.25 mg/dL (0.55-1.02); Calcium 8.9 mg/dL (8.5-10.1); Chloride 102 mmol/L (98-107); Estimated GFR 41.89 (mL/min/1.73m2); Glucose 97 mg/dL (74-106); Magnesium 1.6 mg/dL (1.8-2.4); Potassium 3.4 mmol/L (3.5-5.1); Sodium 138 mmol/L (136-145); TSH (W/Ref FT4) 0.21 uIU/mL (0.36-3.74); Total Protein 5.6 g/dL (6.4-8.2)
[2020-05-09 07:35] LABS: Diff Comment RBC Morph Reviewed; FREE T4 1.07 ng/dL (0.76-1.46)
[2020-05-09 07:36] LABS: Anisocytosis 2+; Hypochromasia 1+; Macrocytosis 1+; Microcytosis 1+; Polychromasia Present
[2020-05-09 07:48] VITALS: BP 181/86; PULSE 84; RESP 18; TEMP 35.9; O2SAT 96
[2020-05-09] MEDS: Potassium Chloride 10 MEQ TABCR 20 MEQ PO ×2 (07:55→20:00)
[2020-05-09] MEDS: Thiamine 100 MG TAB PO (07:55)
[2020-05-09] MEDS: Sucralfate 1 GM TAB PO ×4 (07:55→21:21)
[2020-05-09] MEDS: Celecoxib 100 MG CAP PO ×2 (07:55→20:01)
[2020-05-09] MEDS: hydroCHLOROthiazide 12.5 MG TAB PO (07:55)
[2020-05-09] MEDS: Gabapentin 300 MG CAP PO ×2 (07:55→20:01)
[2020-05-09] MEDS: LORazepam 1 MG TAB PO/SL ×3 (07:55→15:59)
[2020-05-09] MEDS: Venlafaxine 150 MG CAPCR PO (07:56)
[2020-05-09] MEDS: Multivitamin TAB 1 TAB PO (07:56)
[2020-05-09] MEDS: Venlafaxine 37.5 MG CAPCR PO (07:56)
[2020-05-09] MEDS: Metoprolol 50 MG TAB PO ×2 (07:56→20:01)
[2020-05-09] MEDS: Folic Acid 1 MG TAB PO (07:56)
[2020-05-09] MEDS: Enoxaparin 30 MG/0.3 ML SYR SC (07:56)
[2020-05-09] MEDS: amLODIPine 10 MG TAB PO (07:56)
[2020-05-09] MEDS: Pantoprazole 40 MG TABCR PO (07:56)
[2020-05-09 08:37] LABS: COVID-19 RT-PCR UVMMC Result Negative (Negative)
--- NOTE | 2020-05-09 09:01 | IN_ITS ---
PT Notes Visit Reasons: AMBER, ANEMIA, FREQUENT FALLS, ETOH ABUSE Inpatient Physical Therapy Evaluation Date: 05/09/2020 Referring Doctor: Aydin Joy MD PT Orders: PT CONSULT: Eval/Treat Precautions: Fall. Standard. Photosensitive. Activity as tolerated. Patient Profile/Admitting Diagnosis: Patient is a 75-year-old female with past medical history significant for Wernicke's encephalopathy, ETOH abuse, back pain, and frequent falling who presented to the ED on 05/08/2020 with chief complaint of neck/back pain resulting from a fall from a sitting on a broken recliner loose stools. Patient has a diagnosis of neck pain, fall at home, adjustment disorder with depressed mood, and iron deficiency anemia. PMHX: Medical History Alcohol abuse (Chronic) Alcoholic ketosis (Resolved) Allergic rhinitis (Chronic) Anemia (Chronic 12/20/16) Back pain, chronic (Chronic) CAP (community acquired pneumonia) (Resolved) Cataract (Chronic 11/07/15) Cervical radicular pain (Chronic) neck pain and DJD [facility] Chronic alcoholic gastritis (Chronic 10/12/17) pls refrain from alcohol Corneal ulcer, right (Inactive ~08/23/18) 08/23/18; UV-kb Depression (Chronic) Elev transaminase/LDH (Chronic) due to alcohol Fall (Acute) Falling (Chronic) Genital herpes simplex (Chronic) recurrent genital; suppressive Valtrex GERD (gastroesophageal reflux disease) (Chronic) GI bleed (Resolved 12/20/16) Headache (Resolved) Hyperlipidemia (Chronic) Hypertension (Chronic) high today; she will check readings at home 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 Multiple rib fractures (Resolved) 03/11/19 [facility] Non-cardiac chest pain (Resolved 09/21/16) [facility] [place]16 NEGATIVE MP Osteoarthritis (Chronic) Osteopenia (Chronic) 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) Peripheral edema (Acute) Pleural effusion on left (Resolved) 03/11/19 [facility] Right rib fracture (Resolved) Sciatica (Chronic) right, epidural injuections [facility] Tendinitis of left rotator cuff (Inactive) Tubular adenoma of colon (Chronic 01/28/17) Urinary incontinence (Chronic) 01/24/13 urethral suspension and sling at [facility] [place] (bladder suspension 1991) Wernicke encephalopathy (Chronic) Surgical History Bladder Surgery suspension Colonoscopy - MAC (01/28/17) EGD - MAC (12/20/16) History of bilateral ligation of fallopian tubes (Inactive) Ligation of fallopian tube Repair bladder injury, simple Colonoscopy - MAC (01/28/17) EGD - MAC (12/20/16) Ligation of fallopian tube Repair bladder injury, simple Social History/Home Situation: Leticia lives in a private home in [place]. She has a caregiver who comes in daily 5 days per week for 2 hours each time to assist with laundry, minor house chores, and grocery shopping. Patient is independent with MRADLs using a front wheeled walker. She receives meals on wheels. She no longer drives. Equipment Owned/DME: FWW, SC, grab bars, emergency alert device Subjective: Patient is agreeable to PT consult. She complains of being very sleepy and her back being very itchy. She reports her neck being sore. Denies headache, chest pain, and dizziness. Objective: General Observation: IV in the left UE. No eye patch on the right. Contusion seen on the right lateral posterior thorax from her fall. Mental Status: Alert and oriented as to person, place, time, and purpose Pain: 5/10 in her neck ROM: Neck ROM: Extension allows up to 10 degrees, flexion allows 15 degrees, and rotation to B sides about 20 degrees with pain at end of range. Right Upper Extremity: Shoulder Flexion allows up to 70 degrees. Shoulder abduction allows up to 50 degrees. Elbow flexion WFL. Wrist flexion WFL. Functional opening and closing of hand WFL. Left Upper Extremity: Shoulder Flexion allows up to 80 degrees. Shoulder abduction allows up to 60 degrees. Elbow flexion WFL. Wrist flexion WFL. Functional opening and closing of hand WFL. Right Lower Extremity: Hip flexion allows up to 20 degrees beyond 90 while seated at edge of bed. Hip abduction WFL. Knee flexion 30-90 degrees. Knee extension -30 degrees. Ankle dorsiflexion WFL. Ankle plantarflexion WFL. Left Lower Extremity: Hip flexion allows up to 20 degrees beyond 90 while seated at edge of bed. Hip abduction WFL. Knee flexion 30-90 degrees. Knee extension - 30 degrees. Ankle dorsiflexion WFL. Ankle plantarflexion WFL. Strength: Right Upper Extremity: Shoulder flexors 3-/5. Shoulder abductors 3-/5. Elbow flexors 4/5. Elbow extensors 4/5. Sewer Digger strong. Left Upper Extremity: Shoulder flexors 3-/5. Shoulder abductors 3-/5. Elbow flexors 4/5. Elbow extensors 4/5. Sewer Digger strong. Right Lower Extremity: Hip flexors 3-/5. Hip abductors 4-/5. Knee flexors 3-/5. Knee extensors 3-/5. Ankle dorsiflexors 4-/5. Ankle plantarflexors 4-/5. Left Lower Extremity: Hip flexors 3-/5. Hip abductors 4-/5. Knee flexors 3-/5. Knee extensors 3-/5. Ankle dorsiflexors 4-/5. Ankle plantarflexors 4-/5. Bed Mobility/Transfers: Supine to sit minimal assist Sit to supine minimal assist Sit to stand CGA Stand to sit CGA Bed to chair CGA Chair to bed CGA Gait: Patient exhibited reciprocal gait for 40 feet feet using a FWW with mild breathlessness after activity requiring CGA from PT. She appeared to have decreased step length complained of neck and back soreness. Balance: Static Sitting: Normal Dynamic Sitting: Good Static Standing: Fair Dynamic Standing: Fair Special Tests: Mobility Limitations Standardized Measure [facility] AM-PAC 6 clicks Basic Mobility Inpatient Short Form: Raw Score: 14 CMS Score: 61 % deficit Informed Consent/Education: Patient instructed in purpose of PT consult and plan of care. Assessment: Patient demonstrates generalized weakness, functional mobility prior requiring the need for front wheeled walker for all mobility ADL perform this, difficulty with walking with walking, impairment with balance, and increased fall risk resulting from current diagnoses . Patient is a 75-year-old female with past medical history significant for Wernicke's encephalopathy, ETOH abuse, back pain, and frequent falling who presented to the ED on 05/08/2020 with chief complaint of neck/back pain resulting from a fall from a sitting on a broken recliner loose stools. Patient has a diagnosis of neck pain, fall at home, adjustment disorder with depressed mood, and iron deficiency anemia. Patient presents with clinical signs and symptoms consistent with current /admitting diagnoses that have resulted to mobility limitations, gait instability, generalized weakness, and impairment of motor control as demonstrated by the following impairment level findings: 1. Decreased strength to B UE/LE major muscle groups 2. Impaired standing balance 3. Impaired activity tolerance 4. Lightheadedness affecting ambulation distance Impairments are contributing to the following functional limitations: 1. Increased dependence with transfers 2. Inability to safely ambulate without assistive device and physical assistance 3. Increase completion time for mobility ADL performance 4. Increased fall risk 5. Inability to negotiate steps alone safely 6. Decreased ambulation distance Patient is assessed as a [id number] moderate complexity based on the following: History: 75-year-old female with impairment level findings, functional impairments, medical history, and [place] AM PAC deficit score of 58% Examination: Demonstrable impairment in strength, balance, and range of motion with underlying impairments and functional limitations as documented above Presentation: Evolving Decision Makin moderate complexity Goals: Goals X1 week 1. Supine-Sit independent 2. Sit-Supine independent 3. Sit-Stand independent 4. Stand-Sit independent 5. Bed-Chair independent 6. Chair-Bed independent 7. Supervision gait on level surface with use of straight cane for at least 300 feet without report of pain nor dyspnea 8. Supervision stair negotiation while holding onto bilateral rails for at least 5 steps without report of pain nor dyspnea 9. Independent with home exercise program 10. Good static and dynamic standing balance/tolerance DISCHARGE RECOMMENDATIONS: Patient will benefit from senior care facility placement for continued skilled physical therapy services in order to progress mobility level, strength, and balance. TREATMENT CODE/TIME: [id number] x 27 minutes beginning at 9:01 PM. Thank you very much for this referral. Tawana Cruz PT, DPT, CLT [facility] [place], [place]
--- NOTE | 2020-05-09 09:41 | INDS_ITS ---
Date of service: 05/09/20 Time of Service: 09:01 PT Notes Visit Reasons: AMBER, ANEMIA, FREQUENT FALLS, ETOH ABUSE Inpatient Physical Therapy Evaluation Date: 05/09/2020 Referring Doctor: Aydin Joy MD PT Orders: PT CONSULT: Eval/Treat Precautions: Fall. Standard. Photosensitive. Activity as tolerated. Patient Profile/Admitting Diagnosis: Patient is a 75-year-old female with past medical history significant for Wernicke's encephalopathy, ETOH abuse, back pain, and frequent falling who presented to the ED on 05/08/2020 with chief complaint of neck/back pain resulting from a fall from a sitting on a broken recliner loose stools. Patient has a diagnosis of neck pain, fall at home, adjustment disorder with depressed mood, and iron deficiency anemia. PMHX: Medical History Alcohol abuse (Chronic) Alcoholic ketosis (Resolved) Allergic rhinitis (Chronic) Anemia (Chronic 12/20/16) Back pain, chronic (Chronic) CAP (community acquired pneumonia) (Resolved) Cataract (Chronic 11/07/15) Cervical radicular pain (Chronic) neck pain and DJD [facility] Chronic alcoholic gastritis (Chronic 10/12/17) pls refrain from alcohol Corneal ulcer, right (Inactive ~08/23/18) 08/23/18; [facility] Depression (Chronic) Elev transaminase/LDH (Chronic) due to alcohol Fall (Acute) Falling (Chronic) Genital herpes simplex (Chronic) recurrent genital; suppressive Valtrex GERD (gastroesophageal reflux disease) (Chronic) GI bleed (Resolved 12/20/16) Headache (Resolved) Hyperlipidemia (Chronic) Hypertension (Chronic) high today; she will check readings at home 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 Multiple rib fractures (Resolved) 03/11/19 [facility] Non-cardiac chest pain (Resolved 09/21/16) [facility] 09/21/16 NEGATIVE MP Osteoarthritis (Chronic) Osteopenia (Chronic) 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) Peripheral edema (Acute) Pleural effusion on left (Resolved) 03/11/19 [facility] Right rib fracture (Resolved) Sciatica (Chronic) right, epidural injuections [facility] Tendinitis of left rotator cuff (Inactive) Tubular adenoma of colon (Chronic 01/28/17) Urinary incontinence (Chronic) 01/24/13 urethral suspension and sling at [facility] (bladder suspension 1991) Wernicke encephalopathy (Chronic) Surgical History Bladder Surgery suspension Colonoscopy - MAC (01/28/17) EGD - MAC (12/20/16) History of bilateral ligation of fallopian tubes (Inactive) Ligation of fallopian tube Repair bladder injury, simple Colonoscopy - MAC (01/28/17) EGD - MAC (12/20/16) Ligation of fallopian tube Repair bladder injury, simple Social History/Home Situation: Leticia lives in a private home in [place]. She has a caregiver who comes in daily 5 days per week for 2 hours each time to assist with laundry, minor house chores, and grocery shopping. Patient is independent with MRADLs using a straight cane. She has a walker which she states she does not use often. She receives meals on wheels. She no longer drives. Equipment Owned/DME: FWW, SC, grab bars, emergency alert device Subjective: Patient is agreeable to PT consult. She reports being fatigued from symptoms of nausea vomiting and diarrhea but is amenable to trying whatever she can for this evaluation. Patient reported being lightheaded during ambulation activity. Objective: General Observation: Leticia was seen lying in bed upon arrival of this PT. IV in the left UE. Eye patch on the right. Mental Status: Alert and oriented as to person, place, time, and purpose Pain: 0/10 ROM: Right Upper Extremity: Shoulder Flexion allows up to 90 degrees. Shoulder abduction allows up to 90 degrees. Elbow flexion WFL. Wrist flexion WFL. Functional opening and closing of hand WFL. Left Upper Extremity: Shoulder Flexion allows up to 90 degrees. Shoulder abduction allows up to 90 degrees. Elbow flexion WFL. Wrist flexion WFL. Functional opening and closing of hand WFL. Right Lower Extremity: Hip flexion WFL. Hip abduction WFL. Knee flexion WFL. Ankle dorsiflexion WFL. Ankle plantarflexion WFL. Left Lower Extremity: Hip flexion WFL. Hip abduction WFL. Knee flexion WFL. Ankle dorsiflexion WFL. Ankle plantarflexion WFL. Strength: Right Upper Extremity: Shoulder flexors 3-/5. Shoulder abductors 3-/5. Elbow flexors 4/5. Elbow extensors 4/5. Data Base Design Analyst strong. Left Upper Extremity: Shoulder flexors 3-/5. Shoulder abductors 3-/5. Elbow flexors 4/5. Elbow extensors 4/5. Data Base Design Analyst strong. Right Lower Extremity: Hip flexors 4/5. Hip abductors 4/5. Knee flexors 4/5. Knee extensors 4/5. Ankle dorsiflexors 4/5. Ankle plantarflexors 4/5. Left Lower Extremity:Hip flexors 4/5. Hip abductors 4/5. Knee flexors 4/5. Knee extensors 4/5. Ankle dorsiflexors 4/5. Ankle plantarflexors 4/5. Bed Mobility/Transfers: Rolling moderate assist Supine to sit moderate assist Sit to supine moderate assist Sit to stand CGA Stand to sit CGA Bed to chair CGA Chair to bed CGA Gait: Patient exhibited reciprocal gait for 50 feet feet using a FWW with mild breathlessness after activity requiring CGA from PT. She appeared to have decreased step length. Complained of lightheadedness during ambulation activity which shortened distance significantly. Balance: Static Sitting: Normal Dynamic Sitting: Normal Static Standing: Fair Dynamic Standing: Fair Special Tests: Mobility Limitations Standardized Measure [facility]-PAC 6 clicks Basic Mobility Inpatient Short Form: Raw Score: 15 CMS Score: 58 % deficit Informed Consent/Education: Patient instructed in purpose of PT consult and plan of care. Assessment: Patient demonstrates generalized weakness resulting from current diagnoses as above. Patient is a 74-year-old female with past medical history significant for ETOH abuse, back pain, depression, and frequent falling who presented to the ED today with chief presentation of nausea, vomiting, and diarrhea. Patient has a diagnosis of enteritis with referral sent therapy to address and mobility ADL. Patient presents with clinical signs and symptoms consistent with current/admitting diagnoses that have resulted to mobility limitations, gait instability, generalized weakness, and impairment of motor control as demonstrated by the following impairment level findings: 1. Decreased strength to B UE/LE major muscle groups 2. Impaired standing balance 3. Impaired activity tolerance 4. Lightheadedness affecting ambulation distance Impairments are contributing to the following functional limitations: 1. Increased dependence with transfers 2. Inability to safely ambulate without assistive device and physical assistance 3. Increase completion time for mobility ADL performance 4. Increased fall risk 5. Inability to negotiate steps alone safely 6. Decreased ambulation distance Patient is assessed as a [id number] moderate complexity based on the following: History: 74-year-old female with impairment level findings, functional impairments, medical history, and [place] AM PAC deficit score of 58% Examination: Demonstrable impairment in strength, balance, and range of motion with underlying impairments and functional limitations as documented above Presentation: Evolving Decision Makin moderate complexity Goals: Goals X1 week 1. Supine-Sit independent 2. Sit-Supine independent 3. Sit-Stand independent 4. Stand-Sit independent 5. Bed-Chair independent 6. Chair-Bed independent 7. Independent gait on level surface with use of straight cane for at least 300 feet without report of pain nor dyspnea 8. Independent stair negotiation while holding onto bilateral rails for at least 5 steps without report of pain nor dyspnea 9. Independent with home exercise program 10. Good static and dynamic standing balance/tolerance DISCHARGE RECOMMENDATIONS: Patient will benefit from home health PT services in order to progress mobility level using least restrictive assistive ambulatory device, assess home safety, identify additional equipment needs, and establish a functional maintenance program that will increase ability of patient to remain at home. TREATMENT CODE/TIME: [id number] x 26 minutes beginning at 15:46 PM. Thank you very much for this referral. Tawana Cruz PT, DPT, CLT [facility] [place], [place]
--- NOTE | 2020-05-09 09:56 | PDOC.CMIN ---
- If Service Date Differs Date of service: 05/09/20 Time of Service: 10:06 Care Management Initial Assess REASON FOR HOSPITALIZATION:: AQUILINO, Anemia, frequent falls PAST MEDICAL HISTORY/PAST SURGICAL HISTORY:: Medical History (Updated 05/08/20 @ 16:41 by Aydin Joy MD). Alcohol abuse. Alcoholic ketosis. Allergic rhinitis. Anemia (12/20/16). Back pain, chronic. CAP (community acquired pneumonia). Cataract (11/07/15). Cervical radicular pain. neck pain and DJD. [facility]. 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). pls refrain from alcohol. Chronic diarrhea. Contusion of left little finger. Corneal ulcer, right (~08/23/18). 08/23/18; [facility]. Depression. Elev transaminase/LDH. due to alcohol. Fall. Fall as cause of accidental injury at home as place of occurrence. Falling. Genital herpes simplex. recurrent gential; suppressive Valtrex. GERD (gastroesophageal reflux disease). GI bleed (12/20/16). Headache. Hyperlipidemia. Hypertension. high today; she will check readings at home. Macrocytosis (09/26/14). due to alcohol. Multiple rib fractures. 03/11/19 [facility]. Non-cardiac chest pain (09/21/16). [facility] 09/21/16 NEGATIVE MP. Osteoarthritis. Osteopenia. Palliative care patient (03/21/17). Peripheral edema. Pleural effusion on left. 03/11/19 [facility]. Right rib fracture. Sciatica. right, epidural injuections. [facility]. Tendinitis of left rotator cuff. Tubular adenoma of colon (01/28/17). Urinary incontinence. 01/24/13 urethral suspension and sling at [facility]. (bladder suspension 1991). Wernicke encephalopathy. Surgical History . Bladder Surgery. suspension. Colonoscopy - MAC (01/28/17). EGD - MAC (12/20/16). History of bilateral ligation of fallopian tubes. Ligation of fallopian tube. Repair bladder injury, simple PREVIOUS FUNCTIONAL STATUS/SOCIAL/FAMILY SUPPORTS:: Leticia lives alone in [place], [place]. She has a caregiver, Armida, who goes into her home three times a week for two hours. Leticia uses [facility] for transportation, she has minimal community supports and states she uses alcohol on a daily basis. CURRENT FUNCTIONAL STATUS:: Leticia was sitting up eating lunch when CM met with her. She reported that she has had several falls at home due to her recliners both being broken. She stated that Armida, her caregiver, comes to help her 4 days a week for two hours at a time. She stated that she doesn't talk to her children often. She reported that she has decreased her drinking to 3 oz a day. She could not report to CM how much she used to drink, before she decreased her intake. CM discussed options for discharge, including short term rehab, which she is agreeable to. She stated that she wants to stay local, specifically that she doesn't want to go to [place]. CM sent referrals to the [facility], and [facility]. CM called [facility], who stated that they do not have a bed for her. CM will continue to follow. ADVANCE DIRECTIVES:: DNR/COLST on file dwayne Avery is agent Has patient been provided with info about the portal/API?: Yes Did the patient sign up for the portal?: Yes (previously enrolled) CODE STATUS:: DNR/DNI INSURANCE COVERAGE / FINANCIAL ISSUES:: [employer] [facility] and [employer] assist 47% CURRENT HOME/COMMUNITY SERVICES/EQUIPMENT:: Private caregiver three times a week for two hours a day, paid for by her son. RCT. PRIMARY CARE PHYSICIAN:: Lavelle Galindo POTENTIAL DISCHARGE NEEDS:: follow up with PCP, resumption of HH services vs placement PATIENT/FAMILY EDUCATION NEEDS:: Discharge plan, limitations, follow up plan, Ask Me Three ANTICIPATED BARRIERS TO DISCHARGE:: None identified at this time. TRANSPORTATION:: Via [facility] private vehicle. PLAN:: Leticia has stated that she is interested in rehab, CM will explore this option with her. Anticipate she will go to a SNF for short term rehab vs home with resumption of HH services. She will be transported via [facility] private vehicle, coordinated by CM. CM will continue to follow.
[2020-05-09] MEDS: Magnesium Oxide 400 MG TAB PO ×2 (10:03→20:01)
[2020-05-09] MEDS: Normal Saline Flush 10 ML SYR IVP ×2 (10:04→20:17)
[2020-05-09] MEDS: cefTRIAXone 1 GM/50 ML BAG IVPB (10:04)
--- NOTE | 2020-05-09 11:27 | PT.INTREAT ---
Date of service: 05/09/20 Time of Service: 11:27 PT Notes Visit Reasons: AMBER, ANEMIA, FREQUENT FALLS, ETOH ABUSE Inpatient Physical Therapy Treatment Note [facility] Date: 05/09/2020 PRECAUTIONS: Fall SUBJECTIVE: Leticia repeatedly states I'm tired. She is agreeable to participating in PT. OBJECTIVE: Patient observed guarding R UE when reaching for FWW and utilizing FWW with ambulation. PAIN: No c/o pain BED MOBILITY/TRANSFERS Supine-sit: Min A with HOB at 30 degrees Sit-stand: CGA Stand-sit: CGA Bed-Chair: CGA Chair-bed: CGA GAIT Assistive Device: FWW Weight bearing: Full Assist: CGA Distance: 80' + 150' Deviation: Path deviation to R t/o, cueing required to avoid objects on R, hitting objects on R with FWW, decreased violeta ASSESSMENT: Patient tolerated session without complaint. She was able to tolerate a progression in gait distance with FWW support and CGA. She was observed deviating to R and running into objects on R with FWW t/o gait training. She requires constant direction to avoid objects. She would benefit from global strengthening for improved mobility and ability to perform daily functional tasks. PLAN: Continue with gait training with FWW, global strengthening, and transfer and bed mobility training. TREATMENT CODE/TIME: 25 minutes; [id number] x2
--- NOTE | 2020-05-09 14:46 | W.PM.PROGNOT ---
Date of Service Date of service: 05/09/20 Time of Service: 14:46 Assessment and Plan Assessment and plan (1) Fall at home: Status: Acute Assessment and plan: Increasing incident but has had h/o falls. Has fxs in various stages of healing. PT/OT (2) Alcohol abuse: Status: Chronic Assessment and plan: CIWA precautions. Thiamin and folate supplementation (3) Iron deficiency anemia: Status: Acute Assessment and plan: Iron 16 Hgb 7.9 Likely d/t poor nutrition and alcohol abuse Venofer 200mg IV today and tomorrow Monitor hemoglobin. (4) Neck pain: Status: Acute Assessment and plan: Improved Cont Celebrex, PT/OT (5) Hypertension: Status: Chronic Assessment and plan: Poorly controlled. Cont amlodipine, HCTZ and metoprolol. Monitor Qualifiers: Hypertension type: essential hypertension Qualified Code(s): I10 - Essential (primary) hypertension (6) UTI (urinary tract infection): Status: Acute Assessment and plan: Urine cx growing 2 GNR; one with >100,000 colony count On Rocephin Adjust antibiotics if necessary pending final ID and sensitivities. Qualifiers: Hematuria presence: without hematuria Urinary tract infection type: acute cystitis Qualified Code(s): N30.00 - Acute cystitis without hematuria Subjective Subjective Patient reports: no new complaints and feels better Interval history since last seen: Endorses unsteadiness with ambulation Appetite is good Pain is better controlled. Exam Const General: cooperative and no acute distress Nutritional Appearance: average body habitus Orientation: alert Eyes Sclera: sclerae normal Other: Eye patch over R eye Neck Neck: other (Diminished ROM with rotation d/t discomfort) Resp Effort & Inspection: normal respiratory effort Auscultation: clear to auscultation bilaterally Cardio Rate: regular rate Rhythm: regular rhythm Heart Sounds: S1 normal and S2 normal GI Palpation: soft Auscultation: normal bowel sounds Extrem General: no clubbing, cyanosis or edema Psych Appearance: grossly normal Speech and Movement: speech and movement normal Affect: normal affect Attitude: cooperative Objective Objective Clinical Data: Abnormal lab results 05/08/20 05/08/20 05/09/20 Range/Units 11:47 15:54 06:25 WBC (4.4-10.8) 10^3/uL RBC (3.93-5.22) 10^6/uL Hgb (11.2-15.7) g/dL Hct (36.0-46.0) % MCHC (32.0-36.0) % RDW (11.7-14.6) % Absolute Lymphocytes (1.2-3.4) 10^3/uL Potassium 3.4 L (3.5-5.1) mmol/L BUN 21 H (7-18) mg/dL Creatinine 1.25 H D (0.55-1.02) mg/dL Magnesium 1.6 L (1.8-2.4) mg/dL Iron 16 L (50-170) ug/dL Transferrin % Sat 4 L (15-50) % AST 38 H (15-37) U/L Alkaline Phosphatase 163 H (46-116) U/L Total Protein 5.6 L (6.4-8.2) g/dL Albumin 2.5 L (3.4-5.0) g/dL TSH 0.21 L (0.36-3.74) uIU/mL Urine Protein 30 H (Negative) mg/dL Urine Ketones Trace H (Negative) mg/dL Urine Blood Moderate H (Negative) Ur Leukocyte Esterase Large H (Negative) Urine WBC >50 H (0-5) HPF 05/09/20 Range/Units 06:25 WBC 3.09 L (4.4-10.8) 10^3/uL RBC 2.91 L (3.93-5.22) 10^6/uL Hgb 7.9 L (11.2-15.7) g/dL Hct 26.1 L (36.0-46.0) % MCHC 30.3 L (32.0-36.0) % RDW 18.6 H (11.7-14.6) % Absolute Lymphocytes 1.01 L (1.2-3.4) 10^3/uL Potassium (3.5-5.1) mmol/L BUN (7-18) mg/dL Creatinine (0.55-1.02) mg/dL Magnesium (1.8-2.4) mg/dL Iron (50-170) ug/dL Transferrin % Sat (15-50) % AST (15-37) U/L Alkaline Phosphatase (46-116) U/L Total Protein (6.4-8.2) g/dL Albumin (3.4-5.0) g/dL TSH (0.36-3.74) uIU/mL Urine Protein (Negative) mg/dL Urine Ketones (Negative) mg/dL Urine Blood (Negative) Ur Leukocyte Esterase (Negative) Urine WBC (0-5) HPF Vital Signs Temperature 35.9 C L 05/09/20 07:48 Temperature Source Tympanic 05/09/20 07:48 Pulse 84 05/09/20 07:48 Pulse Rhythm Regular 05/09/20 07:30 Pulse 115 H 05/08/20 14:50 Respiratory Rate 18 05/09/20 07:48 Respiratory Effort Non-Labored 05/09/20 07:30 Respiratory Depth Normal 05/09/20 07:30 Respiratory Pattern Normal 05/09/20 07:30 Blood Pressure 181/86 H 05/09/20 07:48 Pulse Oximetry 96 05/09/20 07:48 Oxygen Delivery Method Room Air 05/09/20 07:48 Oxygen Flow Rate 0 05/09/20 07:48 Pain Level 7 05/09/20 07:48 Comment 05/09/20 07:48 Intake & Output 05/08/20 05/09/20 05/09/20 23:59 11:59 23:59 Intake Total 2257.5 / 2257.5 1999 240 / 2240 Output Total 150 / 150 300 / 300 Balance 2107.5 / 2107.5 170 / 1940 240 / 1940 Weight 62.46 kg Intake: IV 1287.5 / 1287.5 1999 Oral 970 / 970 240 / 240 Output: Urine 150 / 150 300 / 300 Other: Urine Color Yellow Yellow Urine Appearance Clear Clear Urine Odor Normal None Comment Void x1 in bedside commode. Urine mixed with stool; unable to determine urine amount. PT WAS INCONTINENT X1 PRIOR TO GOING TO COMMODE Stool Size Moderate Moderate Stool Characteristics Soft Soft Formed Formed Brown Brown Voiding Methods Bedside Commode Diaper Incontinent Laboratory Results WBC 3.09 10^3/uL (4.4-10.8) L 05/09/20 06:25 RBC 2.91 10^6/uL (3.93-5.22) L 05/09/20 06:25 Hgb 7.9 g/dL (11.2-15.7) L 05/09/20 06:25 Hct 26.1 % (36.0-46.0) L 05/09/20 06:25 MCV 89.7 fL (80-95) 05/09/20 06:25 MCH 27.1 pg (27.0-33.0) 05/09/20 06:25 MCHC 30.3 % (32.0-36.0) L 05/09/20 06:25 RDW 18.6 % (11.7-14.6) H 05/09/20 06:25 Plt Count 221 10^3/uL (130-400) 05/09/20 06:25 MPV 9.6 fL (8.0-11.0) 05/09/20 06:25 Immature Gran % 0.3 05/09/20 06:25 Neutrophils % 49.2 05/09/20 06:25 Lymphocytes % 32.7 05/09/20 06:25 Monocytes % 16.8 05/09/20 06:25 Eosinophils % 0.0 05/09/20 06:25 Basophils % 1.0 05/09/20 06:25 Nucleated RBC % 0 % 05/09/20 06:25 Absolute Neutrophils 1.52 10^3/uL (1.2-6.7) 05/09/20 06:25 Absolute Lymphocytes 1.01 10^3/uL (1.2-3.4) L 05/09/20 06:25 Absolute Monocytes 0.52 10^3/uL (0.1-0.8) 05/09/20 06:25 Absolute Eosinophils 0.00 10^3/uL (0.0-0.7) 05/09/20 06:25 Absolute Basophils 0.03 10^3/uL (0.0-0.2) 05/09/20 06:25 RBC Morphology See below 05/09/20 06:25 Polychromasia Present 05/09/20 06:25 Hypochromasia 1+ 05/09/20 06:25 Anisocytosis 2+ 05/09/20 06:25 Microcytosis 1+ 05/09/20 06:25 Macrocytosis 1+ 05/09/20 06:25 PT 10.0 sec (9.3-11.0) 05/08/20 11:47 INR 1.0 (0.9-1.1) 05/08/20 11:47 APTT 23.4 sec (21.0-31.4) 05/08/20 11:47 Sodium 138 mmol/L (136-145) 05/09/20 06:25 Potassium 3.4 mmol/L (3.5-5.1) L 05/09/20 06:25 Chloride 102 mmol/L (98-107) 05/09/20 06:25 Carbon Dioxide 29.7 mmol/L (21.0-32.0) 05/09/20 06:25 Anion Gap 6.3 mmol/L (3-11) 05/09/20 06:25 BUN 21 mg/dL (7-18) H 05/09/20 06:25 Creatinine 1.25 mg/dL (0.55-1.02) H D 05/09/20 06:25 Estimated GFR/1.73 m2 41.89 (mL/min/1.73m2) 05/09/20 06:25 Glucose 97 mg/dL (74-106) 05/09/20 06:25 Calcium 8.9 mg/dL (8.5-10.1) 05/09/20 06:25 Magnesium 1.6 mg/dL (1.8-2.4) L 05/09/20 06:25 Iron 16 ug/dL (50-170) L 05/08/20 11:47 TIBC 371 ug/dL (250-450) 05/08/20 11:47 Transferrin % Sat 4 % (15-50) L 05/08/20 11:47 Total Bilirubin 0.9 mg/dL (0.2-1.0) 05/09/20 06:25 AST 38 U/L (15-37) H 05/09/20 06:25 ALT 39 U/L (14-59) 05/09/20 06:25 Alkaline Phosphatase 163 U/L (46-116) H 05/09/20 06:25 Total Protein 5.6 g/dL (6.4-8.2) L 05/09/20 06:25 Albumin 2.5 g/dL (3.4-5.0) L 05/09/20 06:25 TSH 0.21 uIU/mL (0.36-3.74) L 05/09/20 06:25 Free T4 1.07 ng/dL (0.76-1.46) 05/09/20 06:25 Urine Color Yellow (Yellow) 05/08/20 15:54 Urine Clarity Cloudy (Clear) 05/08/20 15:54 Urine pH 5.5 (5-8) 05/08/20 15:54 Ur Specific [place] 1.015 (1.005-1.025) 05/08/20 15:54 Urine Protein 30 mg/dL (Negative) H 05/08/20 15:54 Urine Ketones Trace mg/dL (Negative) H 05/08/20 15:54 Urine Blood Moderate (Negative) H 05/08/20 15:54 Urine Nitrite Negative (Negative) 05/08/20 15:54 Urine Bilirubin Negative (Negative) 05/08/20 15:54 Urine Urobilinogen 0.2 EU/dL (Up TO 0.2) 05/08/20 15:54 Ur Leukocyte Esterase Large (Negative) H 05/08/20 15:54 Urine RBC Not Applicable 05/08/20 15:54 Urine WBC >50 HPF (0-5) H 05/08/20 15:54 Ur Epithelial Cells Not Applicable 05/08/20 15:54 Urine Crystals Not Applicable 05/08/20 15:54 Urine Bacteria Many HPF (Negative) 05/08/20 15:54 Urine Mucus Heavy (Negative) 05/08/20 15:54 Ur Culture Indicated? Yes 05/08/20 15:54 Urine Glucose Negative mg/dL (Negative) 05/08/20 15:54 Ethyl Alcohol 185.4 mg/dL (<3) 05/08/20 11:47 COVID-19 PCR Negative (Negative) 05/08/20 14:12 Nasopharyn COVID-19 PCR Not Applicable 05/08/20 14:12 Ref Test [facility] 05/08/20 14:12
[2020-05-09 15:17] VITALS: BP 138/76; PULSE 85; RESP 17; TEMP 35.5; O2SAT 98
--- NOTE | 2020-05-09 15:33 | PHA.REVIEW ---
Pharmacy Admission Review - Admission Clinical Review (Last Reviewed 05/08/20 @ 16:10 by Aydin Joy MD) Iron deficiency anemia (Acute) Fall at home (Acute) Neck pain (Acute) Adjustment disorder with depressed mood (Acute) Discharge planning issues (Acute) UTI (urinary tract infection) (Acute) Penicillins Allergy (Mild, Verified 05/08/20 10:34) Rash ramipril Allergy (Unknown, Verified 05/08/20 10:34) ITCHING meperidine [From Demerol] Adverse Reaction (Severe, Verified 05/08/20 10:34) Nausea bupropion Adverse Reaction (Mild, Verified 05/08/20 10:34) GI upset AMBER Inhibitors Adverse Reaction (Unknown, Verified 05/08/20 10:34) COUGH alendronate sodium Adverse Reaction (Unknown, Verified 05/08/20 10:34) GI Distress clarithromycin Adverse Reaction (Unknown, Verified 05/08/20 10:34) intolerant paroxetine Adverse Reaction (Unknown, Verified 05/08/20 10:34) Diarrhea Height 5 ft Weight 62.46 kg Anemia, frequent falls, ETOH abuse - Comments Comments/Follow Ups: Please let MD know we have an Iron Sucrose shortage for the upcoming weekend. Have enough supply for Tue/Tue only. Follow H/H, electrolytes, pain management, hypertension, Micro urine for sensitivities. Patient interested in rehab - Renal Dosing Renal Dosing: BUN 21 mg/dL (7-18) H 05/09/20 06:25 Creatinine 1.25 mg/dL (0.55-1.02) H D 05/09/20 06:25 Medications needing adjustments: Reviewed (CrCl~28ml/min (Lovenox adjusted to 30mg)) - Anticoagulation Anticoagulation: Hgb 7.9 g/dL (11.2-15.7) L 05/09/20 06:25 Hct 26.1 % (36.0-46.0) L 05/09/20 06:25 Plt Count 221 10^3/uL (130-400) 05/09/20 06:25 INR 1.0 (0.9-1.1) 05/08/20 11:47 Creatinine 1.25 mg/dL (0.55-1.02) H D 05/09/20 06:25 DVT Prohphylaxis: Reviewed Medications: Enoxaparin - Opiate Usage Evaluate Pain Scale/Pains Meds: Reviewed (Neck Pain 03/07 (Has Celebrex, Gabapentin and Lidocaine patches ordered-no opiates)) - Relevant Labs Sodium 138 mmol/L (136-145) 05/09/20 06:25 Potassium 3.4 mmol/L (3.5-5.1) L 05/09/20 06:25 Chloride 102 mmol/L (98-107) 05/09/20 06:25 Magnesium 1.6 mg/dL (1.8-2.4) L 05/09/20 06:25 Electrolytes, C-Reactive P, ESR: Reviewed (MagOx 400mg po BID, K-dur 20meq po BID, H/H low 7.9/26.1 (Iron Sucrose ordered)) - DM Control DM Control: Glucose 97 mg/dL (74-106) 05/09/20 06:25 Insulin Dosing: N/A - Heart Failure/ND EF%, AMBER's, B-Blockers, Diuretics: Reviewed (Amlodipine, Metoprolol, HCTZ) - BP Control BP Control: Blood Pressure 138/76 Blood Pressure 181/86 Blood Pressure 166/93 If elevated: Reviewed (resumed home meds) - Qtc Review If Elevated: N/A - IV to PO Switch IV Medications: Reviewed (Rocephin for urine, Iron Sucrose IV daily) - Home Meds Relevent Home Meds Not ordered & why?: Vit D, Vit B-12, Dicyclomine, Ibuprofen, Meclizine, Naltrexone, Zofran, Pyridoxine, Ranitidine-old Rx - Current meds Current Medication Order Review: Reviewed (Iron Sucrose ordered for Anemia 200mg IV daily (only have enough supply for Tuesday and Tue)) Antibiotic Activity - Pharmacy Antibiotic Review Pharmacy Antibiotic Activity: Reviewed, no change (Ceftrixone added for Urine growing >100K colonies Gram Neg & positive)
[2020-05-09] MEDS: IRON SUCROSE COMPLEX 200 MG in Normal Saline 100 ML 400 MG IVPB (15:47)
[2020-05-09 19:15] VITALS: BP 125/78; PULSE 75; RESP 17; TEMP 36.6; O2SAT 96
[2020-05-09 23:10] VITALS: BP 153/80; PULSE 85; RESP 18; TEMP 36; O2SAT 96
[2020-05-10] MEDS: LORazepam 1 MG TAB PO/SL ×4 (00:17→13:55)
[2020-05-10] MEDS: Acetaminophen 325 MG TAB 650 MG PO (00:17)
[2020-05-10 05:59] VITALS: BP 154/87; PULSE 84; RESP 18; TEMP 36.1; O2SAT 94
[2020-05-10 07:18] LABS: Anion Gap 5.4 mmol/L (3-11); BUN 17 mg/dL (7-18); CO2 30.6 mmol/L (21.0-32.0); CREATININE 0.97 mg/dL (0.55-1.02); Calcium 9.1 mg/dL (8.5-10.1); Chloride 98 mmol/L (98-107); Estimated GFR 56.14 (mL/min/1.73m2); Glucose 106 mg/dL (74-106); Potassium 3.5 mmol/L (3.5-5.1); Sodium 134 mmol/L (136-145)
[2020-05-10 07:33] LABS: HCT 25.7 % (36.0-46.0); HGB 8.1 g/dL (11.2-15.7); MCH 27.6 pg (27.0-33.0); MCHC 31.5 % (32.0-36.0); MCV 87.4 fL (80-95); MPV 9.9 fL (8.0-11.0); Platelet Count 215 10^3/uL (130-400); RBC 2.94 10^6/uL (3.93-5.22); RDW 18.7 % (11.7-14.6); RDW-SD 60.2 fL
[2020-05-10 08:23] VITALS: BP 166/95; PULSE 81; RESP 18; TEMP 35.7; O2SAT 95
--- NOTE | 2020-05-10 08:33 | PDOC.CMPRO ---
Care Management Progress Note S/O: Leticia continues to be closely monitored at this time. She was up walking with PT and returned to her room when CM entered. She reported being agreeable to transferring to the [facility] on Tuesday, when they are able to offer a bed, and remaining at [facility] while awaiting placement. She shared no other concerns at this time. CM continues to follow. A: 75 year old female admitted to [facility] 05/08/20 P: Leticia has been accepted at the [facility] for short term rehab prior to returning home with resumption of services. [facility] has accepted Leticia for Tuesday, as her insurance requires a tedious prior authorization process. Anticipate she will remain at [facility] until able to discharge to SNF. Leticia will transport via private vehicle, coordinated by [facility] through [facility]. CM will continue to follow.
[2020-05-10] MEDS: amLODIPine 10 MG TAB PO (08:43)
[2020-05-10] MEDS: Multivitamin TAB 1 TAB PO (08:43)
[2020-05-10] MEDS: Venlafaxine 37.5 MG CAPCR PO (08:43)
[2020-05-10] MEDS: Metoprolol 50 MG TAB PO ×2 (08:43→19:47)
[2020-05-10] MEDS: Folic Acid 1 MG TAB PO (08:43)
[2020-05-10] MEDS: hydroCHLOROthiazide 12.5 MG TAB PO (08:43)
[2020-05-10] MEDS: Enoxaparin 30 MG/0.3 ML SYR SC (08:44)
[2020-05-10] MEDS: Sucralfate 1 GM TAB PO ×3 (08:44→21:13)
[2020-05-10] MEDS: Venlafaxine 150 MG CAPCR PO (08:44)
[2020-05-10] MEDS: Pantoprazole 40 MG TABCR PO (08:44)
[2020-05-10] MEDS: Thiamine 100 MG TAB PO (08:44)
[2020-05-10] MEDS: Celecoxib 100 MG CAP PO ×2 (08:44→19:46)
[2020-05-10] MEDS: Potassium Chloride 10 MEQ TABCR 20 MEQ PO ×2 (08:44→19:47)
[2020-05-10] MEDS: Gabapentin 300 MG CAP PO ×2 (08:44→19:46)
[2020-05-10] MEDS: IRON SUCROSE COMPLEX 200 MG in Normal Saline 100 ML 400 MG IVPB (10:03)
[2020-05-10] MEDS: Potassium Chloride 20 MEQ TABCR 40 MEQ PO (10:03)
[2020-05-10] MEDS: Magnesium Oxide 400 MG TAB PO ×2 (10:03→19:46)
[2020-05-10] MEDS: levoFLOXacin 500 MG, levoFLOXacin 250 MG 750 MG PO (10:03)
--- NOTE | 2020-05-10 11:40 | W.PM.PROGNOT ---
Date of Service Date of service: 05/10/20 Time of Service: 11:40 Assessment and Plan Assessment and plan (1) Fall at home: Start date: 05/10/20 Start time: 11:41 Status: Acute Assessment and plan: Increasing incident but has had h/o falls. Has fxs in various stages of healing. PT/OT Agreeable to rehab Qualifiers: Encounter type: subsequent encounter Qualified Code(s): W19.XXXD - Unspecified fall, subsequent encounter; Y92.009 - Unspecified place in unspecified non-institutional (private) residence as the place of occurrence of the external cause (2) Alcohol abuse: Start date: 05/10/20 Start time: 11:41 Status: Chronic Assessment and plan: CIWA precautions. Thiamin and folate supplementation (3) Iron deficiency anemia: Start date: 05/10/20 Start time: 11:42 Status: Acute Assessment and plan: Iron 16 Hgb 8.1 Likely d/t poor nutrition and alcohol abuse PO iron with Vit C for better absorption Monitor hemoglobin. (4) Neck pain: Start date: 05/10/20 Start time: 11:43 Status: Acute Assessment and plan: Improved Cont Celebrex, PT/OT (5) Hypertension: Start date: 05/10/20 Start time: 11:43 Status: Chronic Assessment and plan: Poorly controlled. Cont amlodipine, HCTZ and metoprolol. Monitor Qualifiers: Hypertension type: essential hypertension Qualified Code(s): I10 - Essential (primary) hypertension (6) UTI (urinary tract infection): Start date: 05/10/20 Start time: 11:43 Status: Acute Assessment and plan: Will transition to PO keflex, pansensitive Above case discussed with Dr. Blake who is in agreement Qualifiers: Urinary tract infection type: acute cystitis Hematuria presence: without hematuria Qualified Code(s): N30.00 - Acute cystitis without hematuria Subjective Subjective Patient reports: other Interval history since last seen: No new complaints. Sitting up in chair sleeping. Awakes easily, denies CP, SOB, N/V/D at this time Exam Const General: cooperative and no acute distress Nutritional Appearance: average body habitus Orientation: alert and oriented x3 HENMT Head: normocephalic and atraumatic Ears: hearing grossly normal bilaterally Eyes Eyelids: other (Wearing an eye patch over R eye) Sclera: sclerae normal Neck Neck: normal visual inspection, tender (along R posterior neck) and other (Diminished ROM with rotation d/t discomfort) Resp Effort & Inspection: normal respiratory effort Auscultation: clear to auscultation bilaterally Cardio Rate: regular rate Rhythm: regular rhythm Heart Sounds: S1 normal and S2 normal GI Inspection: normal to inspection Palpation: soft Auscultation: normal bowel sounds Skin General skin exam: no rashes or lesions noted Neuro General: patient alert and moves all extremities Cranial Nerves: CN's II-XI intact bilaterally Speech: speech normal Extrem General: no clubbing, cyanosis or edema Psych Appearance: grossly normal Speech and Movement: speech and movement normal Affect: normal affect Attitude: cooperative Objective Objective Clinical Data: Abnormal lab results 05/10/20 05/10/20 Range/Units 06:15 06:15 WBC 3.30 L (4.4-10.8) 10^3/uL RBC 2.94 L (3.93-5.22) 10^6/uL Hgb 8.1 L (11.2-15.7) g/dL Hct 25.7 L (36.0-46.0) % MCHC 31.5 L (32.0-36.0) % RDW 18.7 H (11.7-14.6) % Sodium 134 L (136-145) mmol/L Vital Signs Temperature 35.7 C L 05/10/20 08:23 Temperature Source Tympanic 05/10/20 08:23 Pulse 81 05/10/20 08:23 Pulse Rhythm Regular 05/10/20 03:57 Pulse 115 H 05/08/20 14:50 Respiratory Rate 18 05/10/20 08:23 Respiratory Effort Non-Labored 05/10/20 03:57 Respiratory Depth Normal 05/10/20 03:57 Respiratory Pattern Normal 05/10/20 03:57 Blood Pressure 166/95 H 05/10/20 08:23 Pulse Oximetry 95 05/10/20 08:23 Oxygen Delivery Method Room Air 05/10/20 08:23 Oxygen Flow Rate 0 05/10/20 08:23 Pain Level 5 05/10/20 08:23 Comment 05/09/20 07:48 Intake & Output 05/09/20 05/09/20 05/10/20 11:59 23:59 11:59 Intake Total 1999 [id number] 360 / 360 Output Total 300 / 300 Balance 1700 / 3245 1545 / 3245 360 / 360 [place]: [place] [address] 905 / 2905 120 / 120 Oral 640 / 640 240 / 240 Output: Urine 300 / 300 Other: Urine Color Yellow Yellow Yellow Urine Appearance Clear Clear Clear Urine Odor None Normal Normal Comment PT WAS INCONTINENT X1 PRIOR TO GOING TO [facility] Stool Size Moderate Stool Characteristics Soft Formed Brown Voiding Methods Diaper Urinal Diaper Incontinent Incontinent Laboratory Results WBC 3.30 10^3/uL (4.4-10.8) L 05/10/20 06:15 RBC 2.94 10^6/uL (3.93-5.22) L 05/10/20 06:15 Hgb 8.1 g/dL (11.2-15.7) L 05/10/20 06:15 Hct 25.7 % (36.0-46.0) L 05/10/20 06:15 MCV 87.4 fL (80-95) 05/10/20 06:15 MCH 27.6 pg (27.0-33.0) 05/10/20 06:15 MCHC 31.5 % (32.0-36.0) L 05/10/20 06:15 RDW 18.7 % (11.7-14.6) H 05/10/20 06:15 Plt Count 215 10^3/uL (130-400) 05/10/20 06:15 MPV 9.9 fL (8.0-11.0) 05/10/20 06:15 Immature Gran % 0.3 05/09/20 06:25 Neutrophils % 49.2 05/09/20 06:25 Lymphocytes % 32.7 05/09/20 06:25 Monocytes % 16.8 05/09/20 06:25 Eosinophils % 0.0 05/09/20 06:25 Basophils % 1.0 05/09/20 06:25 Nucleated RBC % 0 % 05/09/20 06:25 Absolute Neutrophils 1.52 10^3/uL (1.2-6.7) 05/09/20 06:25 Absolute Lymphocytes 1.01 10^3/uL (1.2-3.4) L 05/09/20 06:25 Absolute Monocytes 0.52 10^3/uL (0.1-0.8) 05/09/20 06:25 Absolute Eosinophils 0.00 10^3/uL (0.0-0.7) 05/09/20 06:25 Absolute Basophils 0.03 10^3/uL (0.0-0.2) 05/09/20 06:25 RBC Morphology See below 05/09/20 06:25 Polychromasia Present 05/09/20 06:25 Hypochromasia 1+ 05/09/20 06:25 Anisocytosis 2+ 05/09/20 06:25 Microcytosis 1+ 05/09/20 06:25 Macrocytosis 1+ 05/09/20 06:25 PT 10.0 sec (9.3-11.0) 05/08/20 11:47 INR 1.0 (0.9-1.1) 05/08/20 11:47 APTT 23.4 sec (21.0-31.4) 05/08/20 11:47 Sodium 134 mmol/L (136-145) L 05/10/20 06:15 Potassium 3.5 mmol/L (3.5-5.1) 05/10/20 06:15 Chloride 98 mmol/L (98-107) 05/10/20 06:15 Carbon Dioxide 30.6 mmol/L (21.0-32.0) 05/10/20 06:15 Anion Gap 5.4 mmol/L (3-11) 05/10/20 06:15 BUN 17 mg/dL (7-18) 05/10/20 06:15 Creatinine 0.97 mg/dL (0.55-1.02) 05/10/20 06:15 Estimated GFR/1.73 m2 56.14 (mL/min/1.73m2) 05/10/20 06:15 Glucose 106 mg/dL (74-106) 05/10/20 06:15 Calcium 9.1 mg/dL (8.5-10.1) 05/10/20 06:15 Magnesium 1.6 mg/dL (1.8-2.4) L 05/09/20 06:25 Iron 16 ug/dL (50-170) L 05/08/20 11:47 TIBC 371 ug/dL (250-450) 05/08/20 11:47 Transferrin % Sat 4 % (15-50) L 05/08/20 11:47 Total Bilirubin 0.9 mg/dL (0.2-1.0) 05/09/20 06:25 AST 38 U/L (15-37) H 05/09/20 06:25 ALT 39 U/L (14-59) 05/09/20 06:25 Alkaline Phosphatase 163 U/L (46-116) H 05/09/20 06:25 Total Protein 5.6 g/dL (6.4-8.2) L 05/09/20 06:25 Albumin 2.5 g/dL (3.4-5.0) L 05/09/20 06:25 TSH 0.21 uIU/mL (0.36-3.74) L 05/09/20 06:25 Free T4 1.07 ng/dL (0.76-1.46) 05/09/20 06:25 Urine Color Yellow (Yellow) 05/08/20 15:54 Urine Clarity Cloudy (Clear) 05/08/20 15:54 Urine pH 5.5 (5-8) 05/08/20 15:54 Ur Specific [place] 1.015 (1.005-1.025) 05/08/20 15:54 Urine Protein 30 mg/dL (Negative) H 05/08/20 15:54 Urine Ketones Trace mg/dL (Negative) H 05/08/20 15:54 Urine Blood Moderate (Negative) H 05/08/20 15:54 Urine Nitrite Negative (Negative) 05/08/20 15:54 Urine Bilirubin Negative (Negative) 05/08/20 15:54 Urine Urobilinogen 0.2 EU/dL (Up TO 0.2) 05/08/20 15:54 Ur Leukocyte Esterase Large (Negative) H 05/08/20 15:54 Urine RBC Not Applicable 05/08/20 15:54 Urine WBC >50 HPF (0-5) H 05/08/20 15:54 Ur Epithelial Cells Not Applicable 05/08/20 15:54 Urine Crystals Not Applicable 05/08/20 15:54 Urine Bacteria Many HPF (Negative) 05/08/20 15:54 Urine Mucus Heavy (Negative) 05/08/20 15:54 Ur Culture Indicated? Yes 05/08/20 15:54 Urine Glucose Negative mg/dL (Negative) 05/08/20 15:54 Ethyl Alcohol 185.4 mg/dL (<3) 05/08/20 11:47 COVID-19 PCR Negative (Negative) 05/08/20 14:12 Nasopharyn COVID-19 PCR Not Applicable 05/08/20 14:12 Ref Test Perform Site [facility] lab 05/08/20 14:12
--- NOTE | 2020-05-10 13:50 | PT.INTREAT ---
PT Notes Visit Reasons: AMBER, ANEMIA, FREQUENT FALLS, ETOH ABUSE Inpatient Physical Therapy Treatment Note [facility] Date: 05/10/2020 PRECAUTIONS: Fall, standard, Photosensitive SUBJECTIVE: Stated she was willing to take a walk after lunch. Too tired in the am. Complainted of feeling dizzy after walking 80ft, but okay to walk to commode from w/c once back to room. OBJECTIVE: PAIN: Ribs hurt her when moving today. BED MOBILITY/TRANSFERS Sit-supine: Min assist with going sit to supine. Sit-stand: CGA Stand-sit: CGA GAIT Assistive Device: FWW Weight bearing: Full Assist: CGA Distance: 80ft, taken back to room with w/c due to complaints of dizziness. Better once back in room. Ambulated 5ft w/c to commode and 5ft commode to bed without complaints of dizziness. Performed urination in commode and nursing staff was informed. Requested assistance with wiping post urination. Deviation: Tends to deviate to the right. ASSESSMENT: Tolerated fair, despite short period of feeling dizzy when walking. Stated she was very tired after walking and urinated on commode and wanted to return to her bed rather than the recliner. PLAN: Continue to encourage functional mobility. TREATMENT CODE/TIME: 53438 x 2 (25'), 1:00 to 1:25
[2020-05-10 15:25] VITALS: BP 132/84; PULSE 81; RESP 18; TEMP 35.7; O2SAT 96
[2020-05-10 19:10] VITALS: BP 107/72; PULSE 88; RESP 17; TEMP 37.2; O2SAT 97
[2020-05-10] MEDS: Cephalexin 500 MG CAP PO (19:46)
[2020-05-10] MEDS: Ascorbic Acid 500 MG TAB PO (19:46)
[2020-05-10] MEDS: Ferrous Sulfate 325 MG TAB PO (19:47)
[2020-05-11 03:10] VITALS: BP 151/93; PULSE 84; RESP 17; TEMP 36; O2SAT 96
[2020-05-11] MEDS: Sucralfate 1 GM TAB PO ×4 (07:26→21:25)
[2020-05-11] MEDS: Enoxaparin 30 MG/0.3 ML SYR SC (07:27)
[2020-05-11] MEDS: Pantoprazole 40 MG TABCR PO (07:27)
[2020-05-11 07:44] VITALS: BP 159/86; PULSE 73; RESP 18; TEMP 36.4; O2SAT 98
--- NOTE | 2020-05-11 08:52 | W.PM.PROGNOT ---
Date of Service Date of service: 05/11/20 Time of Service: 08:52 Assessment and Plan Assessment and plan (1) Fall at home: Start date: 05/11/20 Start time: 08:54 Status: Acute Assessment and plan: C/o pain to rib and back, history of fx ribs, Lidoderm patch to areas PT/OT [place] on Tuesday Repeat COVID sent, negative COVID on admission Qualifiers: Encounter type: subsequent encounter Qualified Code(s): W19.XXXD - Unspecified fall, subsequent encounter; Y92.009 - Unspecified place in unspecified non-institutional (private) residence as the place of occurrence of the external cause (2) Alcohol abuse: Start date: 05/11/20 Start time: 08:55 Status: Chronic Assessment and plan: CIWA precautions. Thiamin and folate supplementation (3) Iron deficiency anemia: Start date: 05/11/20 Start time: 08:55 Status: Acute Assessment and plan: Stable continue Iron and vitamin C supplementation (4) Neck pain: Start date: 05/11/20 Start time: 08:55 Status: Resolved Assessment and plan: Improved Cont Celebrex, PT/OT\ Chronic (5) Hypertension: Start date: 05/11/20 Start time: 08:55 Status: Inactive Assessment and plan: Poorly controlled. Cont amlodipine, HCTZ and metoprolol. Monitor Qualifiers: Hypertension type: essential hypertension Qualified Code(s): I10 - Essential (primary) hypertension (6) UTI (urinary tract infection): Start date: 05/11/20 Start time: 08:56 Status: Acute Assessment and plan: Will transition to PO keflex, pansensitive Above case discussed with Dr. Blake who is in agreement Qualifiers: Urinary tract infection type: acute cystitis Hematuria presence: without hematuria Qualified Code(s): N30.00 - Acute cystitis without hematuria Subjective Subjective Patient reports: other Interval history since last seen: Sitting up in chair eating breakfast, no n/v/d. She is c/o pain to back and ribs which is chronic. Will give lido patch for pain. She denies CP, SOB Exam Const General: cooperative, comfortable and ill appearing chronically Nutritional Appearance: obese Orientation: alert, awake and oriented x3 Eyes Pupils: PERRL EOM: EOM intact bilaterally Resp Auscultation: clear to auscultation bilaterally Cardio Jugular venous pressure: no JVD Rate: regular rate Rhythm: regular rhythm Heart Sounds: S1 normal and S2 normal GI Inspection: normal to inspection Palpation: soft and no hepatosplenomegaly Auscultation: normal bowel sounds Skin General skin exam: no rashes or lesions noted Neuro General: patient alert, patient awake and patient oriented x3 Cognition: normal cognition Speech: speech normal Extrem General: normal to inspection and no clubbing, cyanosis or edema Objective Objective Clinical Data: Vital Signs Temperature 36.4 C L 05/11/20 07:44 Temperature Source Tympanic 05/11/20 07:44 Pulse 73 05/11/20 07:44 Pulse Rhythm Regular 05/11/20 03:53 Pulse 115 H 05/08/20 14:50 Respiratory Rate 18 05/11/20 07:44 Respiratory Effort Non-Labored 05/11/20 03:53 Respiratory Depth Normal 05/11/20 03:53 Respiratory Pattern Normal 05/11/20 03:53 Blood Pressure 159/86 H 05/11/20 07:44 Pulse Oximetry 98 05/11/20 07:44 Oxygen Delivery Method Room Air 05/11/20 07:44 Oxygen Flow Rate 0 05/11/20 07:44 Pain Level 5 05/11/20 07:44 Comment 05/09/20 07:48 Intake & Output 05/10/20 05/10/20 05/11/20 11:59 23:59 11:59 Intake Total 360 / 1290 930 / 1290 10 10 Output Total 300 / 300 400 / 400 Balance 360 / 990 630 / 990 -390 / -390 Intake: IV 120 / 130 10 / 130 10 / 10 Oral 240 / 1160 920 / 1160 Output: Urine 300 / 300 400 / 400 Other: Urine Color Yellow Pale Yellow Yellow Urine Appearance Clear Clear Clear Urine Odor Normal Normal Normal Voiding Methods Diaper Bedside Commode Bedside Commode Incontinent Laboratory Results WBC 3.30 10^3/uL (4.4-10.8) L 05/10/20 06:15 RBC 2.94 10^6/uL (3.93-5.22) L 05/10/20 06:15 Hgb 8.1 g/dL (11.2-15.7) L 05/10/20 06:15 Hct 25.7 % (36.0-46.0) L 05/10/20 06:15 MCV 87.4 fL (80-95) 05/10/20 06:15 MCH 27.6 pg (27.0-33.0) 05/10/20 06:15 MCHC 31.5 % (32.0-36.0) L 05/10/20 06:15 RDW 18.7 % (11.7-14.6) H 05/10/20 06:15 Plt Count 215 10^3/uL (130-400) 05/10/20 06:15 MPV 9.9 fL (8.0-11.0) 05/10/20 06:15 Immature Gran % 0.3 05/09/20 06:25 Neutrophils % 49.2 05/09/20 06:25 Lymphocytes % 32.7 05/09/20 06:25 Monocytes % 16.8 05/09/20 06:25 Eosinophils % 0.0 05/09/20 06:25 Basophils % 1.0 05/09/20 06:25 Nucleated RBC % 0 % 05/09/20 06:25 Absolute Neutrophils 1.52 10^3/uL (1.2-6.7) 05/09/20 06:25 Absolute Lymphocytes 1.01 10^3/uL (1.2-3.4) L 05/09/20 06:25 Absolute Monocytes 0.52 10^3/uL (0.1-0.8) 05/09/20 06:25 Absolute Eosinophils 0.00 10^3/uL (0.0-0.7) 05/09/20 06:25 Absolute Basophils 0.03 10^3/uL (0.0-0.2) 05/09/20 06:25 RBC Morphology See below 05/09/20 06:25 Polychromasia Present 05/09/20 06:25 Hypochromasia 1+ 05/09/20 06:25 Anisocytosis 2+ 05/09/20 06:25 Microcytosis 1+ 05/09/20 06:25 Macrocytosis 1+ 05/09/20 06:25 PT 10.0 sec (9.3-11.0) 05/08/20 11:47 INR 1.0 (0.9-1.1) 05/08/20 11:47 APTT 23.4 sec (21.0-31.4) 05/08/20 11:47 Sodium 134 mmol/L (136-145) L 05/10/20 06:15 Potassium 3.5 mmol/L (3.5-5.1) 05/10/20 06:15 Chloride 98 mmol/L (98-107) 05/10/20 06:15 Carbon Dioxide 30.6 mmol/L (21.0-32.0) 05/10/20 06:15 Anion Gap 5.4 mmol/L (3-11) 05/10/20 06:15 BUN 17 mg/dL (7-18) 05/10/20 06:15 Creatinine 0.97 mg/dL (0.55-1.02) 05/10/20 06:15 Estimated GFR/1.73 m2 56.14 (mL/min/1.73m2) 05/10/20 06:15 Glucose 106 mg/dL (74-106) 05/10/20 06:15 Calcium 9.1 mg/dL (8.5-10.1) 05/10/20 06:15 Magnesium 1.6 mg/dL (1.8-2.4) L 05/09/20 06:25 Iron 16 ug/dL (50-170) L 05/08/20 11:47 TIBC 371 ug/dL (250-450) 05/08/20 11:47 Transferrin % Sat 4 % (15-50) L 05/08/20 11:47 Total Bilirubin 0.9 mg/dL (0.2-1.0) 05/09/20 06:25 AST 38 U/L (15-37) H 05/09/20 06:25 ALT 39 U/L (14-59) 05/09/20 06:25 Alkaline Phosphatase 163 U/L (46-116) H 05/09/20 06:25 Total Protein 5.6 g/dL (6.4-8.2) L 05/09/20 06:25 Albumin 2.5 g/dL (3.4-5.0) L 05/09/20 06:25 TSH 0.21 uIU/mL (0.36-3.74) L 05/09/20 06:25 Free T4 1.07 ng/dL (0.76-1.46) 05/09/20 06:25 Urine Color Yellow (Yellow) 05/08/20 15:54 Urine Clarity Cloudy (Clear) 05/08/20 15:54 Urine pH 5.5 (5-8) 05/08/20 15:54 Ur Specific [place] 1.015 (1.005-1.025) 05/08/20 15:54 Urine Protein 30 mg/dL (Negative) H 05/08/20 15:54 Urine Ketones Trace mg/dL (Negative) H 05/08/20 15:54 Urine Blood Moderate (Negative) H 05/08/20 15:54 Urine Nitrite Negative (Negative) 05/08/20 15:54 Urine Bilirubin Negative (Negative) 05/08/20 15:54 Urine Urobilinogen 0.2 EU/dL (Up TO 0.2) 05/08/20 15:54 Ur Leukocyte Esterase Large (Negative) H 05/08/20 15:54 Urine RBC Not Applicable 05/08/20 15:54 Urine WBC >50 HPF (0-5) H 05/08/20 15:54 Ur Epithelial Cells Not Applicable 05/08/20 15:54 Urine Crystals Not Applicable 05/08/20 15:54 Urine Bacteria Many HPF (Negative) 05/08/20 15:54 Urine Mucus Heavy (Negative) 05/08/20 15:54 Ur Culture Indicated? Yes 05/08/20 15:54 Urine Glucose Negative mg/dL (Negative) 05/08/20 15:54 Ethyl Alcohol 185.4 mg/dL (<3) 05/08/20 11:47 COVID-19 PCR Negative (Negative) 05/08/20 14:12 Nasopharyn COVID-19 PCR Not Applicable 05/08/20 14:12 Ref Test [facility] 05/08/20 14:12
[2020-05-11] MEDS: Celecoxib 100 MG CAP PO ×2 (08:53→20:18)
[2020-05-11] MEDS: Venlafaxine 37.5 MG CAPCR PO (08:54)
[2020-05-11] MEDS: Multivitamin TAB 1 TAB PO (08:54)
[2020-05-11] MEDS: amLODIPine 10 MG TAB PO (08:54)
[2020-05-11] MEDS: hydroCHLOROthiazide 12.5 MG TAB PO (08:54)
[2020-05-11] MEDS: Cephalexin 500 MG CAP PO ×2 (08:54→20:19)
[2020-05-11] MEDS: Ascorbic Acid 500 MG TAB PO ×2 (08:54→20:19)
[2020-05-11] MEDS: Thiamine 100 MG TAB PO (08:54)
[2020-05-11] MEDS: Ferrous Sulfate 325 MG TAB PO ×2 (08:54→20:19)
[2020-05-11] MEDS: Venlafaxine 150 MG CAPCR PO (08:55)
[2020-05-11] MEDS: Folic Acid 1 MG TAB PO (08:55)
[2020-05-11] MEDS: Gabapentin 300 MG CAP PO ×2 (08:55→20:18)
[2020-05-11] MEDS: Potassium Chloride 10 MEQ TABCR 20 MEQ PO ×2 (08:55→20:19)
--- NOTE | 2020-05-11 08:55 | PDOC.CMPRO ---
Care Management Progress Note S/O: Leticia continues to be closely monitored at this time. She remains agreeable to transferring to the [facility] on Tuesday, when they are able to offer a bed, and remaining at [facility] while awaiting placement. She shared no other concerns at this time. CM continues to follow. A: 75 year old female admitted to [facility] 05/08/20 P: Leticia has been accepted at the [facility] for short term rehab prior to returning home with resumption of services. [facility] has accepted Leticia for Tuesday, as her insurance requires a tedious prior authorization process. Anticipate she will remain at [facility] until able to discharge to SNF. Leticia will transport via private vehicle, coordinated by CM through [facility]. CM will continue to follow.
[2020-05-11] MEDS: Lidocaine 5% Patch 2 PATCH TP (09:04)
[2020-05-11] MEDS: Metoprolol 50 MG TAB PO ×2 (09:25→20:19)
[2020-05-11] MEDS: Magnesium Oxide 400 MG TAB PO ×2 (09:42→20:18)
--- NOTE | 2020-05-11 09:56 | PT.INTREAT ---
Date of service: 05/11/20 Time of Service: 09:30 PT Notes Visit Reasons: AMBER, ANEMIA, FREQUENT FALLS, ETOH ABUSE Inpatient Physical Therapy Treatment Note [facility] Date: 05/11/2020 PRECAUTIONS:Fall, Standard, Photosensitive SUBJECTIVE: Stated she is willing to take a walk this morning. OBJECTIVE: PAIN: Complained of right shoulder pain when going from stand to sit in recliner and lowering her body down in chair. BED MOBILITY/TRANSFERS Up in recliner when I arrived to patient's room. Sit-stand: SBA Stand-sit: SBA GAIT Assistive Device: FWW Weight bearing: Full Assist: CGA Distance: 80ft x 2, short seated rest (3 minutes) between walks Deviation: Not having difficulty with deviation to the right today. Indicated if she pushes down on walker too hard it causes her to get dizzy. Worked on lightening up on walker with ambulation today. ASSESSMENT: Tolerated ambulation very well today. Appeared more comfortable and alert today. PLAN: Continue with current POC with focus on improved functional mobility with ADLs. TREATMENT CODE/TIME: 38080w9 (20'), 9:30 to 9:50
[2020-05-11 10:49] LABS: HCT 26.7 % (36.0-46.0); HGB 8.3 g/dL (11.2-15.7); MCH 27.9 pg (27.0-33.0); MCHC 31.1 % (32.0-36.0); MCV 89.6 fL (80-95); MPV 9.7 fL (8.0-11.0); Platelet Count 227 10^3/uL (130-400); RBC 2.98 10^6/uL (3.93-5.22); RDW 19.2 % (11.7-14.6); RDW-SD 62.7 fL; WBC 4.45 10^3/uL (4.4-10.8)
[2020-05-11 15:00] VITALS: BP 132/79; PULSE 79; RESP 18; TEMP 36.2; O2SAT 96
[2020-05-11 19:15] VITALS: BP 152/85; PULSE 84; RESP 18; TEMP 36.2; O2SAT 94
[2020-05-11] MEDS: Normal Saline Flush 10 ML SYR IVP (20:17)
[2020-05-11] MEDS: LORazepam 1 MG TAB PO/SL ×2 (20:20→23:57)
[2020-05-11] MEDS: LIDOCAINE Patch Removal 2 EACH TP (21:26)
[2020-05-11] MEDS: Acetaminophen 325 MG TAB 650 MG PO (23:33)
[2020-05-12 03:09] VITALS: BP 155/91; PULSE 82; RESP 18; TEMP 36.1; O2SAT 95
[2020-05-12 07:31] LABS: BUN 21 mg/dL (7-18); CREATININE 1.25 mg/dL (0.55-1.02); Calcium 9.8 mg/dL (8.5-10.1); Chloride 98 mmol/L (98-107); Estimated GFR 41.89 (mL/min/1.73m2); Glucose 94 mg/dL (74-106); Magnesium 1.5 mg/dL (1.8-2.4); Potassium 3.6 mmol/L (3.5-5.1); Sodium 137 mmol/L (136-145)
[2020-05-12] MEDS: Sucralfate 1 GM TAB PO ×4 (07:53→22:41)
--- NOTE | 2020-05-12 07:53 | OTIE_ITS ---
Occupational Therapy Notes SInpatient Occupational Therapy Evaluation Date: 05/12/20 Referring Doctor:Aydin Joy MD OT Orders: Eval and Treat- Non Urgent Precautions: Fall, Standard PATIENT PROFILE/ADMITTING DIAGNOSIS: Pt is a 75 year old female who was admitted through the ER with c/o neck and back pain from a fall out of a broken recliner. She is admitted with ETOH abuse, back pain, frequent falls, and iron deficiency anemia. Pt has a significant past medical history and was been admitted to [facility] frequently in the past year. Past Medical History: Alcohol abuse (Chronic) Alcoholic ketosis (Resolved) Allergic rhinitis (Chronic) Anemia (Chronic 12/20/16) Back pain, chronic (Chronic) Cataract (Chronic 11/07/15) Cervical radicular pain (Chronic) Chronic alcoholic gastritis (Chronic 10/12/17) Depression (Chronic) Elev transaminase/LDH (Chronic) Falling (Chronic) Genital herpes simplex (Chronic) GERD (gastroesophageal reflux disease) (Chronic) GI bleed (Chronic 12/20/16) Headache (Chronic) Hyperlipidemia (Chronic) Hypertension (Chronic) Macrocytosis (Chronic 09/26/14) Multiple rib fractures (Acute) Non-cardiac chest pain (Chronic 09/21/16) Osteoarthritis (Chronic) Osteopenia (Chronic) 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) Pleural effusion on left (Acute) Right rib fracture (Resolved) Sciatica (Chronic) Tubular adenoma of colon (Chronic 01/28/17) Urinary incontinence (Chronic) Wernicke encephalopathy (Chronic) Surgical History Bladder Surgery Colonoscopy - MAC (01/28/17) EGD - MAC (12/20/16) Ligation of fallopian tube Repair bladder injury, simple Social History/Home Situation: She reports that she lives in a private home and has a caregiver who comes into the home 2 hours per day. She reports that her caregiver (A) with laundry, grocery shopping and homecare tasks. Pt states that she takes a shower 2-3x per week. She states that she has a shower seat and what she considers a regular shower. She has a regular toilet and grab bars near her shower but they are removable. She states that otherwise she feels she is (I) and is able to wash and dress herself. She states that she sometimes has difficulty with LE dressing but this comes and goes she states that she never knows how the day will be. She has a dog that she cares for and she reports that she is eager to return home. RAJI peters comes into her home every morning and she gets Meals from [employer] which she states they help her prepare her meals. She lives with her dog and 3 cats. Equipment owned/DME: grab bars, shower seat, FWW SUBJECTIVE: Pt was sitting in bed when OT arrived. She was agreeable to OT session. OBJECTIVE: General Observation:Life line, Mental Status: A&Ox3 Pain: c/o pain in back, (R) shoulder and ribs ROM: RUE AROM limited to 60*AROM due to pain from fall. L UE AROM WFL with limited shoulder flexion to 110* STRENGTH: RUE Shoulder flexion 2-/5, bicep 2/5, tricep 2-/5, aerodynamics professor is weak and symmetrical LUE Shoulder flexion 3-/5, bicep 3/5, tricep 3-/5, aerodynamics professor is weak and symmetrical FUNCTIONAL MOBILITY/ADLS: DRESSING Dressing- sitting on side of bed pt was min (A) with don and doffing hospital gown, (I) don and doffing (B) socks with min vc. Bathing- Sitting on side of the bed with max (A) Set up/clean up, mod (A) hair, (I) face, (B) UE, abdomen, (B) LE to knees, denies lower legs. Grooming- Sitting on side of the bed (I) with brushing hair TOILETING- on commode (I) with supervision for transfer, (I) with toileting hygiene Eating- NT BALANCE: Static sitting Normal Dynamic Sitting Good Static Standing Good Dynamic Standing Good SPECIAL TESTS: Daily Activity Limitations Standardized Measure [facility] AM -PAC ?6 clicks? Daily Activity Inpatient Short Form: Raw score: 20 Standardized score: 42.03 CMS score: 38.32% INFORMED CONSENT/EDUCATION: Pt instructed in purpose of OT Consult and plan of care. ASSESSMENT: Patient is a 75-year-old female referred to occupational therapy services with diagnosis of chronic alcohol abuse, wernickes encephalopathy, back pain, frequent falls, c/o neck pain, back pain from fall out of sitting in a broken recliner. Patient presents with clinical signs and symptoms consistent with dx, as demonstrated by the following impairment level findings/functional limitations: Decreased functional activity tolerance, decreased (I) in her ADL/IADL routines, decreased functional mobility, decreased safety awareness, high risk of re-admission, decreased (R) UE, decreased functional use of his (R) UE required for ADLs//IADLs, rib pain. Pt would benefit from skilled OT services for increased (I) in her ADL routines. AMPAC score 20, CMS score 38.32% Patient is assessed as a Moderate 09048 complexity based on the following: History: See Above Examination: See functional limitations as noted above Presentation: Evolving Decision Making: AMPAC score 20, CMS score 38.32% GOALS 1. Transfers- (S), FWW 2. Dressing sitting on side of bed (I) with UE don and doffing shirt, (I) with don and doffing pants 3. Bathing standing at sink (I) UE/LE 4. Toileting on toilet (I) 5. Grooming- standing at sink pt will be able to stand at sink with FWW (I) with brushing teeth PLAN OF CARE/TREATMENT PLAN: 1x/day, 5 days/ week x 1week Initiate Occupational Therapy Services for bathing, dressing, grooming, toileting, eating, transfer training. DISCHARGE RECOMMENDATIONS SNF vs. home with TREATMENT TIME/MINUTES/CODES 30828, [id number] 30 minutes (07:20) Yee Elizalde OTR/L [facility]
[2020-05-12] MEDS: hydroCHLOROthiazide 12.5 MG TAB PO (07:54)
[2020-05-12] MEDS: Potassium Chloride 10 MEQ TABCR 20 MEQ PO ×2 (07:54→19:48)
[2020-05-12] MEDS: Venlafaxine 150 MG CAPCR PO (07:55)
[2020-05-12] MEDS: Cephalexin 500 MG CAP PO ×2 (07:55→19:48)
[2020-05-12] MEDS: Folic Acid 1 MG TAB PO (07:56)
[2020-05-12] MEDS: Celecoxib 100 MG CAP PO ×2 (07:56→19:48)
[2020-05-12] MEDS: Venlafaxine 37.5 MG CAPCR PO (07:56)
[2020-05-12] MEDS: Ferrous Sulfate 325 MG TAB PO ×2 (07:56→19:48)
[2020-05-12] MEDS: Thiamine 100 MG TAB PO (07:57)
[2020-05-12] MEDS: Gabapentin 300 MG CAP PO ×2 (07:57→19:48)
[2020-05-12] MEDS: Metoprolol 50 MG TAB PO ×2 (07:57→19:48)
[2020-05-12] MEDS: amLODIPine 10 MG TAB PO (07:57)
[2020-05-12] MEDS: Pantoprazole 40 MG TABCR PO (07:58)
[2020-05-12] MEDS: Ascorbic Acid 500 MG TAB PO ×2 (07:58→19:48)
[2020-05-12] MEDS: Enoxaparin 30 MG/0.3 ML SYR SC (07:59)
[2020-05-12] MEDS: Multivitamin TAB 1 TAB PO (07:59)
[2020-05-12] MEDS: Lidocaine 5% Patch 2 PATCH TP (08:00)
[2020-05-12 08:30] LABS: COVID-19 RT-PCR UVMMC Result Negative (Negative)
[2020-05-12 08:48] VITALS: BP 142/81; PULSE 83; RESP 18; TEMP 36.5; O2SAT 93
[2020-05-12] MEDS: LORazepam 1 MG TAB PO/SL ×2 (08:49→20:11)
--- NOTE | 2020-05-12 09:43 | PGE_ITS ---
Date of Service Date of service: 05/12/20 Time of Service: 09:44 Assessment and Plan Assessment and plan (1) Fall at home: Start date: 05/12/20 Start time: 09:45 Status: Acute Assessment and plan: C/o pain to rib and back, history of fx ribs, Lidoderm patch to areas PT/OT [facility] on Tuesday Repeat COVID sent, negative COVID on admission Qualifiers: Encounter type: subsequent encounter Qualified Code(s): W19.XXXD - Unspecified fall, subsequent encounter; Y92.009 - Unspecified place in unspecified non-institutional (private) residence as the place of occurrence of the external cause (2) Alcohol abuse: Start date: 05/12/20 Start time: 09:45 Status: Chronic Assessment and plan: CIWA precautions. Thiamin and folate supplementation (3) Iron deficiency anemia: Start date: 05/12/20 Start time: 09:46 Status: Acute Assessment and plan: Stable continue Iron and vitamin C supplementation (4) Neck pain: Start date: 05/12/20 Start time: 09:48 Status: Resolved Assessment and plan: Improved Cont Celebrex, PT/OT\ Chronic (5) Hypertension: Start date: 05/12/20 Start time: 09:48 Status: Inactive Assessment and plan: Poorly controlled. Cont amlodipine, HCTZ and metoprolol. Monitor Qualifiers: Hypertension type: essential hypertension Qualified Code(s): I10 - Essential (primary) hypertension (6) UTI (urinary tract infection): Start date: 05/12/20 Start time: 09:48 Status: Acute Assessment and plan: Will transition to PO keflex, pansensitive Above case discussed with Dr. Blake who is in agreement Qualifiers: Urinary tract infection type: acute cystitis Hematuria presence: without hematuria Qualified Code(s): N30.00 - Acute cystitis without hematuria Subjective Subjective Patient reports: still having pain Interval history since last seen: Sitting up in bed tolerating food, no nausea or vomiting. C/o pain to back and neck, chronic. Possible discharge to [facility] tomorrow. Exam Const General: cooperative, comfortable, no acute distress and ill appearing chronically Nutritional Appearance: average body habitus and obese Orientation: alert, awake and oriented x3 HENMT Head: normocephalic and atraumatic Ears: hearing grossly normal bilaterally Eyes Eyelids: other (Wearing an eye patch over R eye) Sclera: sclerae normal Pupils: PERRL EOM: EOM intact bilaterally Neck Neck: normal visual inspection, tender (along R posterior neck) and other (Diminished ROM with rotation d/t discomfort) Resp Effort & Inspection: normal respiratory effort Auscultation: clear to auscultation bilaterally Cardio Jugular venous pressure: no JVD Rate: regular rate Rhythm: regular rhythm Heart Sounds: S1 normal and S2 normal GI Inspection: normal to inspection Palpation: soft and no hepatosplenomegaly Auscultation: normal bowel sounds Skin General skin exam: no rashes or lesions noted Neuro General: patient alert, patient awake, patient oriented x3 and moves all extremities Cranial Nerves: CN's II-XI intact bilaterally Cognition: normal cognition Speech: speech normal Extrem General: normal to inspection and no clubbing, cyanosis or edema Psych Appearance: grossly normal Speech and Movement: speech and movement normal Affect: normal affect Attitude: cooperative Objective Last Vital Signs Temp 36.5 C 05/12/20 08:48 Pulse 83 05/12/20 08:48 Resp 18 05/12/20 08:48 BP 142/81 H 05/12/20 08:48 Pulse Ox 93 05/12/20 08:48 Laboratory Results - last 24 hr 05/09/20 05/11/20 05/12/20 11:39 10:24 06:33 WBC 4.45 RBC 2.98 L Hgb 8.3 L Hct 26.7 L MCV 89.6 MCH 27.9 MCHC 31.1 L RDW 19.2 H Plt Count 227 MPV 9.7 Sodium 137 Potassium 3.6 Chloride 98 Carbon Dioxide 31.0 Anion Gap 8.0 BUN 21 H Creatinine 1.25 H Estimated GFR/1.73 m2 41.89 Glucose 94 Calcium 9.8 Magnesium 1.5 L COVID-19 PCR Negative Nasopharyn COVID-19 PCR Not Applicable Ref Test Perform Site [facility] lab
[2020-05-12] MEDS: Magnesium Oxide 400 MG TAB PO ×2 (09:56→19:48)
--- NOTE | 2020-05-12 10:09 | PT.INTREAT ---
Date of service: 05/12/20 Time of Service: 10:10 PT Notes Visit Reasons: AMBER, ANEMIA, FREQUENT FALLS, ETOH ABUSE Inpatient Physical Therapy Treatment Note [facility] Date: 05/12/2020 PRECAUTIONS: Fall SUBJECTIVE: Leticia is agreeable to participating in PT. She states that she has a headache this morning and is cold. OBJECTIVE: Held further PT due to increased dizziness with activity PAIN: No c/o pain BED MOBILITY/TRANSFERS Supine-sit: S Sit-supine: S Sit-stand: SBA Stand-sit: SBA GAIT Assistive Device: FWW Weight bearing: Full Assist: SBA Distance: 250' + 150' in a.m.; 100' x2 in p.m. Deviation: Seated rest x1 due to dizziness, no path deviation in a.m.; Seated rest x1, path deviation to R, increased dizziness ASSESSMENT: Patient tolerated sessions with complaint of increased dizziness with gait training. She would benefit from continued global strengthening to return to baseline level of function at an independent level. PLAN: Continue with global strengthening TREATMENT CODE/TIME: Session 1: 25 minutes; [id number] x2 Session 2: 20 minutes; [id number]
[2020-05-12] MEDS: MAGNESIUM SULFATE 4 GM/100 ML BAG IVPB (10:36)
--- NOTE | 2020-05-12 13:07 | TELEFU_ITS ---
Date of service: 05/12/20 Time of Service: 13:07 Nutritional Follow up NOTE: 75 year old female admitted s/p Fall [facility] long standing hx of ETOH abuse, with iron deficiency anemia. Following Regular Diet with excellent intake (>75%). BMI wnl for age, stable in past year. Meds include thiamine, folate and iron. To be d/c to [facility] tomorrow. Currently meeting nutrient and fluid needs and not at risk for nutritional decline at this time. Time Spent in Nutritional Counseling and Treatment: 0 time spent face to face
[2020-05-12] MEDS: Normal Saline Flush 10 ML SYR IVP (13:46)
--- NOTE | 2020-05-12 14:54 | CHAPLAIN ---
Leticia is well known to staff as she is admitted every few months. She's been in the hospital a few days now and said she was up and walking around today. She will go to the [facility] tomorrow for two weeks of PT as she said she needs to get stronger to she can go home by herself. Leticia said she fell out of her chair and that both her recliners are broken and that is why she fell. Her son is in charge of her money, and he said she doesn't have enough money to buy a new chair, Leticia said. I gave Leticia a prayer shawl to take to the [facility] with her.
[2020-05-12 15:37] VITALS: BP 133/84; PULSE 79; RESP 17; TEMP 35.7; O2SAT 94
--- NOTE | 2020-05-12 15:40 | W.PM.DS.N ---
Date of service: 05/12/20 Time of Service: 15:42 DS: Diagnosis Discharge Diagnosis (1) Fall at home: Start date: 05/12/20 Start time: 15:42 Status: Chronic Asessment and Plan: h/o recent falls due to ETOH use resulting in old fx ribs and back pain. She is unsteady on her feet. she has agreed to the [facility]. (2) Alcohol abuse: Start date: 05/12/20 Start time: 15:43 Status: Chronic Asessment and Plan: On thiamine and folate, CIWA negative while in hospital, no signs withdrawal (3) Iron deficiency anemia: Start date: 05/12/20 Start time: 15:43 Status: Chronic Asessment and Plan: Chronic secondary to alcoholism, and poor po intake supplement with iron pills and vitamin c (4) Neck pain: Start date: 05/12/20 Start time: 15:44 Status: Chronic Asessment and Plan: falls a contributor, Lidocaine patches for pain with celebrex which appears to be helpful (5) Hypertension: Start date: 05/12/20 Start time: 15:45 Status: Inactive Asessment and Plan: Continue medications as outpatient, follow up with PCP in 2 weeks, will defer for further treatment and medication mangement (6) UTI (urinary tract infection): Start date: 05/12/20 Start time: 15:46 Status: Acute Asessment and Plan: On keflex to finish total course of 7 days of antibiotics Above case discussed with Dr. Blake who is in agreement. Discharge Plan Disposition Patient Disposition: SNF (LEVEL 1) [facility] Condition: Improving Discharge Details Reason For Visit: AMBER, ANEMIA, FREQUENT FALLS, ETOH ABUSE Admit Date/Time: 05/08/20 14:06 Admit Provider: Aydin Joy Attending Provider: Aydin Joy Primary Care Provider: Lavelle Galindo Hospital Course Hospital Course: This is a 75 y/o female with a h/o Etoh abuse disorder, anemia, depression, transaminitis, GERD, HLD, HTN, Wernicke encephalopathy, multiple fxs including ribs, R humerus and clavicle d/t frequent falls. She presented to the ED via EMS after sitting in a broken recliner then sliding out onto the floor hurting her neck and R lower back. Her last Etoh intake was the day before admission. No CP, palpitations, syncope. No XIONG, vertigo, dizziness. She endorses falling more often over the last month or so. She wishes to seek placement for further rehabilitation. Per EMS report, her home is very filthy. Over course of hospital stay she has had no nausea or vomiting. She is tolerating a full diet. Coivd negative. She was found to have a uti sensitive to keflex, will treat for a total of 7 days with keflex. MARIELA which is chronic but stable, treatment with supplemental iron and vitamin c. celebrex for neck pain. She has been working with PT. AMBER resolved with hydration. She is being [facility] to the [facility] for further management and rehabilitation. She denies CP, SOB, n/v/d. Home Meds and New Rx's Prescriptions: New ascorbic acid (vitamin C) [Vitamin C] 500 mg Tablet 500 mg PO BID Qty: 30 RF: 0 cephalexin 500 mg Capsule 500 mg PO BID Qty: 7 RF: 0 ferrous sulfate 325 mg (65 mg iron) Tablet 325 mg PO BID Qty: 60 RF: 0 lidocaine [Lidoderm] 5 % Adhesive Patch,Medicated 2 patch topical Q24H Qty: 10 RF: 0 Bio-K plus 50 billion cell Capsule,Delayed Release(Dr/Ec) 1 cap PO DAILY Qty: 60 RF: 0 Continued venlafaxine 37.5 mg capsule,extended release 24hr 37.5 mg PO DAILY Qty: 30 RF: 11 venlafaxine 150 mg capsule,extended release 24hr 150 mg PO DAILY Qty: 30 RF: 11 hydrochlorothiazide 12.5 mg tablet 12.5 mg PO DAILY Qty: 90 RF: 3 gabapentin 300 mg capsule 300 mg PO BID Qty: 90 RF: 5 metoprolol tartrate 50 mg tablet 50 mg PO BID Qty: 180 RF: 3 sennosides [Senokot] 8.6 mg tablet 8.6 mg PO BID Qty: 180 RF: 3 magnesium oxide 400 mg magnesium capsule 400 mg PO BID Qty: 180 RF: 3 amlodipine 10 mg tablet 10 mg PO DAILY Qty: 90 RF: 3 pantoprazole 40 mg tablet,delayed release (DR/EC) 40 mg PO DAILY Qty: 90 RF: 3 Ensure Active High Protein Liquid 414 ml PO DAILY Qty: 34777 RF: 11 multivitamin [Multiple Vitamins] Tablet 1 tab PO DAILY Qty: 90 RF: 3 potassium chloride [Klor-Con M10] 10 mEq tablet,ER particles/crystals 10 meq PO DAILY Qty: 90 RF: 3 dicyclomine 10 mg capsule 10 mg PO QID PRN (Reason: belly pain) Qty: 40 RF: 0 sucralfate 1 gram tablet 1 g PO AC & HS Qty: 120 RF: 5 ipratropium-albuterol 0.5 mg-3 mg(2.5 mg base)/3 mL solution for nebulization 3 ml IH QID PRN (Reason: shortness of breath) Qty: 90 RF: 3 fluticasone propionate 50 mcg/actuation spray,suspension 1 spray NS daily prn Qty: 9.9 RF: 2 celecoxib [Celebrex] 100 mg capsule 100 mg PO BID Qty: 20 RF: 0 folic acid 1 mg Tablet 1 mg PO DAILY Qty: 14 RF: 0 Refresh Plus 0.5 % Dropperette 1 drp OU Q4H WHILE AWAKE Qty: 30 RF: 0 thiamine mononitrate (vit B1) [Vitamin B-1 (mononitrate)] 100 mg Tablet 100 mg PO DAILY Qty: 10 RF: 0 ondansetron HCl [Zofran] 4 mg tablet 4 mg PO Q8H Qty: 12 RF: 0 Discontinued ibuprofen 400 mg tablet 400 mg PO Q6H PRNQty: 60 RF: 3 No Action meclizine 25 mg tablet 25 mg PO TID PRN (Reason: dizziness) Qty: 30 RF: 1 Discharge Instructions Instructions: Abuse of Alcohol (DC), Acute Nausea and Vomiting (DC), Fall Prevention (DC), Alcohol Use Disorder (DC) Additional Instructions: STOP DRINKING Discharge to [facility] Activity:: Activity as Tolerated Equipment/Supplies:: No Equipment Needed Diet:: As Tolerated DS: Summary Status at Discharge Functional status at discharge: uses cane/walker Overall status at discharge: patient is not back to baseline Mental Status: mental status grossly normal Speech and Movement: speech and movement normal Mood: congruent mood Affect: normal affect Exam Const General: cooperative, comfortable, no acute distress and ill appearing chronically Nutritional Appearance: average body habitus and obese Orientation: alert, awake and oriented x3 HENMT Head: normocephalic and atraumatic Ears: hearing grossly normal bilaterally Eyes Eyelids: other (Wearing an eye patch over R eye) Sclera: sclerae normal Pupils: PERRL EOM: EOM intact bilaterally Neck Neck: normal visual inspection, tender (along R posterior neck) and other (Diminished ROM with rotation d/t discomfort) Resp Effort & Inspection: normal respiratory effort Auscultation: clear to auscultation bilaterally Cardio Jugular venous pressure: no JVD Rate: regular rate Rhythm: regular rhythm Heart Sounds: S1 normal and S2 normal GI Inspection: normal to inspection Palpation: soft and no hepatosplenomegaly Auscultation: normal bowel sounds Skin General skin exam: no rashes or lesions noted Neuro General: patient alert, patient awake, patient oriented x3 and moves all extremities Cranial Nerves: CN's II-XI intact bilaterally Cognition: normal cognition Speech: speech normal Extrem General: normal to inspection and no clubbing, cyanosis or edema Psych Appearance: grossly normal Mental Status: mental status grossly normal Speech and Movement: speech and movement normal Mood: congruent mood Affect: normal affect Attitude: cooperative DS: Data Vitals/I&O Vitals and I&O: Vital Signs Temperature 36.5 C 05/12/20 08:48 Temperature Source Tympanic 05/12/20 08:48 Pulse 83 05/12/20 08:48 Pulse Rhythm Regular 05/12/20 12:36 Pulse 115 H 05/08/20 14:50 Respiratory Rate 18 05/12/20 08:48 Respiratory Effort Non-Labored 05/12/20 12:36 Respiratory Depth Normal 05/12/20 12:36 Respiratory Pattern Normal 05/12/20 12:36 Blood Pressure 142/81 H 05/12/20 08:48 Pulse Oximetry 93 05/12/20 08:48 Oxygen Delivery Method Room Air 05/12/20 08:48 Oxygen Flow Rate 0 05/12/20 08:48 Pain Level 5 05/12/20 08:48 Comment 05/12/20 08:48 Intake & Output 05/11/20 05/12/20 05/12/20 23:59 11:59 23:59 Intake Total 980 / 1480 600 / 600 Balance 980 / 980 600 / 600 Intake: IV Oral 960 / 1450 600 / 600 Other: Urine Color Yellow Urine Appearance Clear Urine Odor Normal Comment moderate amnt inct Stool Size Small Small Stool Characteristics Soft Soft Formed Formed Brown Voiding Methods Diaper Incontinent Data Completed and Pending Completed studies during hospitalization [Text1]: EXAM: CT CHEST WO CLINICAL HISTORY: multiple falls, contusions/swelling right side TECHNIQUE: Imaging Protocol: Axial computed tomography images with coronal and sagittal reformatted images were created and reviewed CONTRAST MATERIAL: Intravenous: Omnipaque 350 Contrast volume:structured data in ml. COMPARISON: CT HEAD AND CSPINE W/O CONTRAST from 07/18/2015 CT CHEST ABD PELVIS WITH CONTRAST from 10/25/[address] CHEST/ABD/PEL WO from 01/04/[address] CHEST/ABD/PEL W from 07/10/[address] ABDOMEN PELVIS W from 10/30/[address] CHEST/ABD/PEL W from 04/19/2020 CR XR RIBS RT PA CHEST 3V from 04/25/2020 FINDINGS: Tracheobronchial tree: Patent where visualized. Mediastinum and Vilma: No dominant adenopathy or fluid collection. Pulmonary parenchyma: The right upper lobe nodule again noted which has been seen on multiple prior exams including a CT of the neck from 2014. Dependent changes are seen bilaterally. Pleura: No effusion or pneumothorax. Heart: The heart is not dilated. Mild coronary artery calcifications are seen. Aorta: Ascending aorta measures 4 cm in maximal dimension.. Upper abdomen: Fatty liver Lymph nodes: Within normal limits. Bones: Multiple bilateral old and subacute rib fractures. No acute rib fractures are identified. No spine fracture is seen. Soft tissues: Unremarkable. IMPRESSION: Old bilateral rib fractures. Stable right upper lobe nodule. No acute abnormality is identified. Labs on day of discharge: Labs from last 24 hours 05/12/20 05/09/20 06:33 11:39 Sodium 137 Potassium 3.6 Chloride 98 Carbon Dioxide 31.0 Anion Gap 8.0 BUN 21 H Creatinine 1.25 H Estimated GFR/1.73 m2 41.89 Glucose 94 Calcium 9.8 Magnesium 1.5 L COVID-19 PCR Negative Nasopharyn COVID-19 PCR Not Applicable Ref Test Perform Site [facility] Medical History Adjustment disorder with depressed mood AMBER (acute kidney injury) Alcohol abuse Alcoholic gastritis without bleeding Alcoholic ketosis Allergic rhinitis Anemia (12/20/16) Back pain, chronic Calcific tendinitis of left shoulder CAP (community acquired pneumonia) Cataract (11/07/15) Cervical radicular pain neck pain and DJD [facility] 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) pls refrain from alcohol Chronic alcoholism she will not stop drinking unless she checks with me, so that we can help her avert withdrawal I do not think she is capable on her own--she would need placement to achieve required goal of 3 months of sobriety Chronic diarrhea Closed displaced fracture of proximal phalanx of right index finger with routine healing (06/03/17) Closed right humeral fracture Contusion of left little finger Corneal ulcer, right (~08/23/18) 08/23/18; [facility]- Dehydration Depression Diarrhea Discharge planning issues DVT prophylaxis Elev transaminase/LDH due to alcohol Epigastric abdominal pain Fall as cause of accidental injury at home as place of occurrence Genital herpes simplex recurrent gential; suppressive Valtrex GERD (gastroesophageal reflux disease) GI bleed (12/20/16) Head contusion Headache History of alcohol abuse Humerus fracture (09/12/19) Right Hyperlipidemia Hypertension Incidental lung nodule, greater than or equal to 8mm 1cm, spiculated, stable for many years, recommend f/u in 6 mo Macrocytosis (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 Multiple rib fractures 03/11/19 [facility] Nausea and vomiting in adult Non-cardiac chest pain (09/21/16) [facility] 09/21/16 NEGATIVE MP Osteoarthritis Osteopenia Palliative care patient (03/21/17) Pancreatitis, alcoholic, acute Peripheral edema Pleural effusion on left 03/11/19 [facility] Presacral mass (~09/15/18) 09/15/18 [facility] Right rib fracture Sacral mass Sciatica right, epidural injuections [facility] Tendinitis of left rotator cuff Tubular adenoma of colon (01/28/17) Urinary incontinence 01/24/13 urethral suspension and sling at [facility] (bladder suspension 1991) UTI (urinary tract infection) Vision loss of right eye 08/17/18;[facility] Wernicke encephalopathy Surgical History Bladder Surgery suspension Colonoscopy - MAC (01/28/17) EGD - MAC (12/20/16) History of bilateral ligation of fallopian tubes History of Surgical Procedure a. Bladder repair. Ligation of fallopian tube Repair bladder injury, simple Family History Mother No problems noted. Father , DROWNED at age 50. No problems noted. Sister Personal history of malignant neoplasm MELANOMA Sister No problems noted. Grandfather Personal history of malignant neoplasm STOMACH Grandfather Personal history of malignant neoplasm PROSTATE Grandmother Heart disease IN Acute ill-defined cerebrovascular disease Grandmother Personal history of malignant neoplasm UTERINE Aunt , IN Heart disease IN Aunt , IN Heart disease Brother No problems noted. Social History Smoking/Tobacco Use Status: Former Tobacco Use Alcohol Intake: current Alcohol Intake frequency: 3 or more drinks per day Alcohol type: hard liquor Drug use: Never Substance use type: does not use Details: Last acoholic beverage was 2pm this afternoon. Current gender identity: female Do you feel safe at home: Yes Do you feel safe in your relationship?: Yes
--- NOTE | 2020-05-12 16:12 | PDOC.CMPRO ---
- If Service Date Differs Date of service: 05/12/20 Time of Service: 16:12 Care Management Progress Note S/O: Leticia was sitting up in her chair when CM met with her. She reported that she is still not feeling her best, especially due to pain. CM discussed the discharge plan for her to go to short term rehab at the [facility] prior to returning home. She reported that she will be buying herself a new reclining chair before she goes home, as she does not want to 'slide out' of it again. She is agreeable to going to the [facility]. She will likely transfer to the [facility] tomorrow. CM will continue to follow. A: Leticia is a 75 year old female admitted to [facility] on 05/08/20 with AMBER, Anemia, frequent falls. P: Leticia has been accepted at the [facility] for short term rehab prior to returning home with resumption of services. [facility] has accepted Leticia for Tuesday, as her insurance requires a tedious prior authorization process. Anticipate she will remain at [facility] until able to discharge to SNF. Leticia will transport via private vehicle, coordinated by CM through [facility]. CM will continue to follow.
[2020-05-12 19:42] VITALS: BP 128/73; PULSE 83; RESP 18; TEMP 36.6; O2SAT 95
[2020-05-12] MEDS: LIDOCAINE Patch Removal 2 EACH TP (19:49)
[2020-05-12] MEDS: Acetaminophen 325 MG TAB 650 MG PO (20:11)
[2020-05-13] MEDS: LORazepam 1 MG TAB PO/SL (00:32)
[2020-05-13 03:43] VITALS: BP 143/84; PULSE 78; RESP 17; TEMP 36.4; O2SAT 95
[2020-05-13 06:56] LABS: Platelet Count 225 10^3/uL (130-400)
[2020-05-13 07:45] VITALS: BP 156/82; PULSE 87; RESP 17; TEMP 36.5; O2SAT 97
[2020-05-13] MEDS: Enoxaparin 30 MG/0.3 ML SYR SC (09:15)
[2020-05-13] MEDS: Pantoprazole 40 MG TABCR PO (09:15)
[2020-05-13] MEDS: Multivitamin TAB 1 TAB PO (09:16)
[2020-05-13] MEDS: Ascorbic Acid 500 MG TAB PO (09:16)
[2020-05-13] MEDS: Celecoxib 100 MG CAP PO (09:16)
[2020-05-13] MEDS: Cephalexin 500 MG CAP PO (09:16)
[2020-05-13] MEDS: Venlafaxine 150 MG CAPCR PO (09:16)
[2020-05-13] MEDS: Venlafaxine 37.5 MG CAPCR PO (09:16)
[2020-05-13] MEDS: Ferrous Sulfate 325 MG TAB PO (09:16)
[2020-05-13] MEDS: amLODIPine 10 MG TAB PO (09:16)
[2020-05-13] MEDS: Sucralfate 1 GM TAB PO (09:17)
[2020-05-13] MEDS: hydroCHLOROthiazide 12.5 MG TAB PO (09:17)
[2020-05-13] MEDS: Potassium Chloride 10 MEQ TABCR 20 MEQ PO (09:17)
[2020-05-13] MEDS: Metoprolol 50 MG TAB PO (09:17)
[2020-05-13] MEDS: Folic Acid 1 MG TAB PO (09:17)
[2020-05-13] MEDS: Thiamine 100 MG TAB PO (09:17)
[2020-05-13] MEDS: Gabapentin 300 MG CAP PO (09:17)
[2020-05-13] MEDS: Magnesium Oxide 400 MG TAB PO (09:25)
[2020-05-13] MEDS: Lidocaine 5% Patch 2 PATCH TP (09:25)
--- NOTE | 2020-05-13 09:49 | OT.INTREAT ---
Date of service: 05/13/20 Time of Service: 07:05 Occupational Therapy Notes Occupational Therapy Inpatient Treatment Note Date: 05/13/20 PRECAUTIONS: Fall, Standard, DNR/DNI SUBJECTIVE: Pt was sitting in bed when OT arrived. She states that she believes she is going to the [facility]. She states that she slept ok and feels slightly better than she did. OBJECTIVE: PAIN: c/o discomfort in her (R) shoulder and ribs FUNCTIONAL MOBILITY Sit-stand: (S) Stand-sit: (S) BATHING: Upper Body: sitting on side of the bed with max (A) set up/clean up (I) with washing face, (B) UE Lower Body: pt denies DRESSING: sitting on side of the bed Upper Extremity: pt denies performance of Lower Extremity: OT educates pt on use of adaptive equipment including sock aid and dressing stick which she denies at this time and reports. She is able to (I) don and doff her (B) socks with min vc. She does this by bringing her leg up towards her chest and placing her sock on her feet and pull with (B) UE. ASSESSMENT/PLAN: Plan is for pt to go to SNF when cleared per MD. She believes that this will happen today but is not sure. Pt was not receptive to performing her full bathing routine and reports that she wants to wait till later. TREATMENT CODES/TIME: 99366, 15 minutes (07:05) Yee Elizalde, OTR/L [facility]
--- NOTE | 2020-05-13 13:02 | PT.INTREAT ---
Date of service: 05/13/20 Time of Service: 13:02 PT Notes Visit Reasons: AMBER, ANEMIA, FREQUENT FALLS, ETOH ABUSE Inpatient Physical Therapy Treatment Note [facility] Date: 05/13/2020 PRECAUTIONS: Fall SUBJECTIVE: Leticia is agreeable to participating in PT. She reports that she is feeling better today. OBJECTIVE: Held further PT due to increased dizziness with activity PAIN: No c/o pain BED MOBILITY/TRANSFERS Supine-sit: I with HOB flat Sit-stand: S Stand-sit: S Bed-chair: SBA GAIT Assistive Device: FWW Weight bearing: Full Assist: S Distance: 260' Deviation: No c/o dizziness TOILETING: Patient toileted with assist for pericare ASSESSMENT: Patient tolerated session without complaint. She would benefit from continued global strengthening to return to baseline level of function at an independent level. PLAN: Continue with global strengthening at SNF level rehab facility TREATMENT CODE/TIME: 20 minutes; [id number]
--- NOTE | 2020-05-13 17:12 | PDOC.CMDIS ---
- If Service Date Differs Date of service: 05/13/20 Time of Service: 17:12 LACE Index Scoring Tool - Questions: Length of Stay (in days): 4 - 6 Acuity (Admit via E.D.?): Yes Comorbidities: Liver or Renal Disease E.D. Visits: 27 - Answers: Total Score: 16 Risk of Readmission: High Risk Care Management Discharge Reason for Hospitalization: AQUILINO, Anemia, frequent falls Discharge Plan: Leticia will transition to the [facility] today for short term rehab. She will transport via [facility] private vehicle. She will follow up with her discharge plan of care. CM will continue to follow. Patient/Family Education Needs: Review discharge instructions regarding activity levels and medications with pt and staff at the [facility], discussion of self care needs and goals of care. Services Needed at Discharge: Care Home Facility ([facility]), Transportation ([facility])
--- NOTE | 2020-05-14 07:07 | OT.INDS ---
Date of service: 05/14/20 Time of Service: 07:07 Occupational Therapy Notes Occupational Therapy Inpatient Discharge Summary Date: 05/14/20 Referring Doctor:Aydin Joy MD OT Orders: Eval and Treat- Non Urgent Precautions: Fall, Standard *This document serves as a summary of care, no skilled OT services were provided for this documentation* PATIENT PROFILE/ADMITTING DIAGNOSIS: Pt is a 75 year old female who was admitted through the ER with c/o neck and back pain from a fall out of a broken recliner. She is admitted with ETOH abuse, back pain, frequent falls, and iron deficiency anemia. Pt has a significant past medical history and was been admitted to [facility] frequently in the past year. Past Medical History: Alcohol abuse (Chronic) Alcoholic ketosis (Resolved) Allergic rhinitis (Chronic) Anemia (Chronic 12/20/16) Back pain, chronic (Chronic) Cataract (Chronic 11/07/15) Cervical radicular pain (Chronic) Chronic alcoholic gastritis (Chronic 10/12/17) Depression (Chronic) Elev transaminase/LDH (Chronic) Falling (Chronic) Genital herpes simplex (Chronic) GERD (gastroesophageal reflux disease) (Chronic) GI bleed (Chronic 12/20/16) Headache (Chronic) Hyperlipidemia (Chronic) Hypertension (Chronic) Macrocytosis (Chronic 09/26/14) Multiple rib fractures (Acute) Non-cardiac chest pain (Chronic 09/21/16) Osteoarthritis (Chronic) Osteopenia (Chronic) 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) Pleural effusion on left (Acute) Right rib fracture (Resolved) Sciatica (Chronic) Tubular adenoma of colon (Chronic 01/28/17) Urinary incontinence (Chronic) Wernicke encephalopathy (Chronic) Surgical History Bladder Surgery Colonoscopy - MAC (01/28/17) EGD - MAC (12/20/16) Ligation of fallopian tube Repair bladder injury, simple Social History/Home Situation: She reports that she lives in a private home and has a caregiver who comes into the home 2 hours per day. She reports that her caregiver (A) with laundry, grocery shopping and homecare tasks. Pt states that she takes a shower 2-3x per week. She states that she has a shower seat and what she considers a regular shower. She has a regular toilet and grab bars near her shower but they are removable. She states that otherwise she feels she is (I) and is able to wash and dress herself. She states that she sometimes has difficulty with LE dressing but this comes and goes she states that she never knows how the day will be. She has a dog that she cares for and she reports that she is eager to return home. RAJI peters comes into her home every morning and she gets Meals from [employer] which she states they help her prepare her meals. She lives with her dog and 3 cats. Equipment owned/DME: grab bars, shower seat, FWW SUBJECTIVE: NT OBJECTIVE: ROM: RUE AROM limited to 60*AROM due to pain from fall. L UE AROM WFL with limited shoulder flexion to 110* STRENGTH: RUE Shoulder flexion 2-/5, bicep 2/5, tricep 2-/5, precision honing machine operator is weak and symmetrical LUE Shoulder flexion 3-/5, bicep 3/5, tricep 3-/5, precision honing machine operator is weak and symmetrical FUNCTIONAL MOBILITY/ADLS: DRESSING Dressing- sitting on side of bed pt was min (A) with don and doffing hospital gown, (I) don and doffing (B) socks with min vc. Bathing- Sitting on side of the bed with max (A) Set up/clean up, mod (A) hair, (I) face, (B) UE, abdomen, (B) LE to knees, denies lower legs. Grooming- Sitting on side of the bed (I) with brushing hair TOILETING- on commode (I) with supervision for transfer, (I) with toileting hygiene Eating- NT BALANCE: Static sitting Normal Dynamic Sitting Good Static Standing Good Dynamic Standing Good ASSESSMENT: Patient is a 75-year-old female referred to occupational therapy services with diagnosis of chronic alcohol abuse, wernickes encephalopathy, back pain, frequent falls, c/o neck pain, back pain from fall out of sitting in a broken recliner. Pt was seen for 2 skilled OT sessions, she is discharged as of 05/13 and transitioned to SNF at the [facility]. GOALS 1. Transfers- (S), FWW- met 2. Dressing sitting on side of bed (I) with UE don and doffing shirt, (I) with don and doffing pants- met 3. Bathing standing at sink (I) UE/LE- progressing towards 4. Toileting on toilet (I)- met 5. Grooming- standing at sink pt will be able to stand at sink with FWW (I) with brushing teeth - progressing towards PLAN OF CARE/TREATMENT PLAN: Discharge OT services. DISCHARGE RECOMMENDATIONS SNF vs. home with HH TREATMENT TIME/MINUTES/CODES N/A Yee Elizalde, OTR/L [facility]
--- NOTE | 2020-05-16 19:00 | PT.INDS ---
Date of service: 05/16/20 PT Notes Visit Reasons: AMBER, ANEMIA, FREQUENT FALLS, ETOH ABUSE Inpatient Physical Therapy Discharge Summary Dates: 05/16/2020 Dates of Service: 05/09/2020 through 05/13/2020 This is a clinical summary of care provided on the duration of dates listed above. No charge was made in the completion of this documentation. Referring Doctor: Aydin Joy MD PT Orders: PT CONSULT: Eval/Treat Precautions: Fall. Standard. Photosensitive. Activity as tolerated. Patient Profile/Admitting Diagnosis: Patient is a 75-year-old female with past medical history significant for Wernicke's encephalopathy, ETOH abuse, back pain, and frequent falling who presented to the ED on 05/08/2020 with chief complaint of neck/back pain resulting from a fall from a sitting on a broken recliner loose stools. Patient has a diagnosis of neck pain, fall at home, adjustment disorder with depressed mood, and iron deficiency anemia. PMHX: Medical History Alcohol abuse (Chronic) Alcoholic ketosis (Resolved) Allergic rhinitis (Chronic) Anemia (Chronic 12/20/16) Back pain, chronic (Chronic) CAP (community acquired pneumonia) (Resolved) Cataract (Chronic 11/07/15) Cervical radicular pain (Chronic) neck pain and DJD [facility] Chronic alcoholic gastritis (Chronic 10/12/17) pls refrain from alcohol Corneal ulcer, right (Inactive ~08/23/18) 08/23/18; [facility] Depression (Chronic) Elev transaminase/LDH (Chronic) due to alcohol Fall (Acute) Falling (Chronic) Genital herpes simplex (Chronic) recurrent genital; suppressive Valtrex GERD (gastroesophageal reflux disease) (Chronic) GI bleed (Resolved 12/20/16) Headache (Resolved) Hyperlipidemia (Chronic) Hypertension (Chronic) high today; she will check readings at home 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 Multiple rib fractures (Resolved) 03/11/19 [facility] Non-cardiac chest pain (Resolved 09/21/16) [facility] 09/21/16 NEGATIVE MP Osteoarthritis (Chronic) Osteopenia (Chronic) 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) Peripheral edema (Acute) Pleural effusion on left (Resolved) 03/11/19 [facility] Right rib fracture (Resolved) Sciatica (Chronic) right, epidural injuections [facility] Tendinitis of left rotator cuff (Inactive) Tubular adenoma of colon (Chronic 01/28/17) Urinary incontinence (Chronic) 01/24/13 urethral suspension and sling at [facility] (bladder suspension 1991) Wernicke encephalopathy (Chronic) Surgical History Bladder Surgery suspension Colonoscopy - MAC (01/28/17) EGD - MAC (12/20/16) History of bilateral ligation of fallopian tubes (Inactive) Ligation of fallopian tube Repair bladder injury, simple Colonoscopy - MAC (01/28/17) EGD - MAC (12/20/16) Ligation of fallopian tube Repair bladder injury, simple Social History/Home Situation: Leticia lives in a private home in [place]. She has a caregiver who comes in daily 5 days per week for 2 hours each time to assist with laundry, minor house chores, and grocery shopping. Patient is independent with MRADLs using a front wheeled walker. She receives meals on wheels. She no longer drives. Equipment Owned/DME: FWW, SC, grab bars, emergency alert device Subjective: NT. See most recent INTEGRATION DIRECTOR notes. Objective: General Observation: NT. See most recent INTEGRATION DIRECTOR notes. Mental Status: NT. See most recent INTEGRATION DIRECTOR notes. Pain: NT. See most recent INTEGRATION DIRECTOR notes. ROM: Neck ROM: Extension allows up to 10 degrees, flexion allows 15 degrees, and rotation to B sides about 20 degrees with pain at end of range. Right Upper Extremity: Shoulder Flexion allows up to 70 degrees. Shoulder abduction allows up to 50 degrees. Elbow flexion WFL. Wrist flexion WFL. Functional opening and closing of hand WFL. Left Upper Extremity: Shoulder Flexion allows up to 80 degrees. Shoulder abduction allows up to 60 degrees. Elbow flexion WFL. Wrist flexion WFL. Functional opening and closing of hand WFL. Right Lower Extremity: Hip flexion allows up to 20 degrees beyond 90 while seated at edge of bed. Hip abduction WFL. Knee flexion 30-90 degrees. Knee extension -30 degrees. Ankle dorsiflexion WFL. Ankle plantarflexion WFL. Left Lower Extremity: Hip flexion allows up to 20 degrees beyond 90 while seated at edge of bed. Hip abduction WFL. Knee flexion 30-90 degrees. Knee extension -30 degrees. Ankle dorsiflexion WFL. Ankle plantarflexion WFL. Strength: Right Upper Extremity: Shoulder flexors 3-/5. Shoulder abductors 3-/5. Elbow flexors 4/5. Elbow extensors 4/5. Septic Tank Servicer strong. Left Upper Extremity: Shoulder flexors 3-/5. Shoulder abductors 3-/5. Elbow flexors 4/5. Elbow extensors 4/5. Septic Tank Servicer strong. Right Lower Extremity: Hip flexors 3-/5. Hip abductors 4-/5. Knee flexors 3-/5. Knee extensors 3-/5. Ankle dorsiflexors 4-/5. Ankle plantarflexors 4-/5. Left Lower Extremity: Hip flexors 3-/5. Hip abductors 4-/5. Knee flexors 3-/5. Knee extensors 3-/5. Ankle dorsiflexors 4-/5. Ankle plantarflexors 4-/5. Bed Mobility/Transfers: Supine to sit independent Sit to supine independent Sit to stand independent Stand to sit independent Bed to chair independent Chair to bed independent Gait: 260 feet with front wheeled walker requiring supervision with full weight bearing. Balance: Static Sitting: Normal Dynamic Sitting: Normal Static Standing: Fair Dynamic Standing: Fair Assessment: Leticia demonstrates significant functional mobility improvements during this episode of care as evidenced by discharge mobility level above and goal status below. She will continue to benefit from skilled physical therapy services at the SNF to achieve independent ambulation using least restrictive device. Goals: Goals X1 week 1. Supine-Sit independent MET 2. Sit-Supine independent MET 3. Sit-Stand independent MET 4. Stand-Sit independent MET 5. Bed-Chair independent MET 6. Chair-Bed independent MET 7. Supervision gait on level surface with use of straight cane for at least 300 feet without report of pain nor dyspnea MET 8. Supervision stair negotiation while holding onto bilateral rails for at least 5 steps without report of pain nor dyspnea MET 9. Independent with home exercise program NOT MET 10. Good static and dynamic standing balance/tolerance NOT MET DISCHARGE RECOMMENDATIONS: Patient will benefit from halfway facility placement for continued skilled physical therapy services in order to progress mobility level, strength, and balance. TREATMENT CODE/TIME: TN. Thank you very much for this referral. Tawana Cruz PT, DPT, CLT [facility], [place]
== END 2020-05-13 11:59 | disposition skilled nursing facility (03) | DRG 690 ==
LOC: ER 14:41 → MS 15:17
PROVIDERS: Internal Medicine; Nurse Practitioner Family; Admitting Provider Family Medicine; Emergency Provider Physician Assistant; PCP Family Medicine; Visit Provider Family Medicine
DX: N30.00 Acute cystitis without hematuria (principal); N17.9 Acute kidney failure, unspecified; E51.2 Wernicke's encephalopathy; M54.12 Radiculopathy, cervical region; F10.10 Alcohol abuse, uncomplicated; D50.9 Iron deficiency anemia, unspecified; I10 Essential (primary) hypertension; F32.9 Major depressive disorder, single episode, unspecified; K21.9 Gastro-esophageal reflux disease without esophagitis; E78.5 Hyperlipidemia, unspecified; G89.29 Other chronic pain; M54.9 Dorsalgia, unspecified; K29.20 Alcoholic gastritis without bleeding; K52.9 Noninfective gastroenteritis and colitis, unspecified; A60.00 Herpesviral infection of urogenital system, unspecified; D75.89 Other specified diseases of blood and blood-forming organs; R29.6 Repeated falls; Z91.81 History of falling; M19.90 Unspecified osteoarthritis, unspecified site; M54.31 Sciatica, right side; E83.42 Hypomagnesemia; W07.XXXA Fall from chair, initial encounter; S22.43XD Multiple fractures of ribs, bilateral, subsequent encounter for fracture with routine healing; Z11.59 Encounter for screening for other viral diseases
CPT/HCPCS: 36415; 71250; 80048; 80053; 85027; 87077; 90686; 96361; 96365; 96366; 96367; 96375; 97162; 97166; 97530; 97535; 99222; 99232; 99233; 99239; 99285; U0003; 80320; 81003; 81015; 83540; 83550; 83735; 84439; 84443; 85025; 85049; 85610; 85730; 87086; 87186; J0131; J0696; J1650; J1756; J1885; J2560; J3475; J3480; J3490

== ENCOUNTER 2020-05-16 16:16 | Outpatient (REF) | payer OTHER, SELFPAY ==
[2020-05-16 18:44] LABS: Abs Immature Grans 0.03 10^3/uL (0.0-0.06); Absolute Basophil Count 0.02 10^3/uL (0.0-0.2); Absolute Lymphocyte Count 0.94 10^3/uL (1.2-3.4); Absolute Monocyte Count 0.62 10^3/uL (0.1-0.8); Basophils % 0.4; HCT 28.9 % (36.0-46.0); HGB 8.6 g/dL (11.2-15.7); Immature Grans % 0.6; Lymphocytes % 18.8; MCH 28.3 pg (27.0-33.0); MCHC 29.8 % (32.0-36.0); MCV 95.1 fL (80-95); MPV 9.6 fL (8.0-11.0); Monocytes % 12.4; Neutrophils % 67.8; Nucleated RBC 0 %; Platelet Count 290 10^3/uL (130-400); RBC 3.04 10^6/uL (3.93-5.22); RDW 21.7 % (11.7-14.6); RDW-SD 75.2 fL; WBC 5.01 10^3/uL (4.4-10.8)
[2020-05-16 19:14] LABS: ALT 78 U/L (14-59); AST 90 U/L (15-37); Albumin 3.2 g/dL (3.4-5.0); Alkaline Phosphatase 216 U/L (46-116); Anion Gap 10.9 mmol/L (3-11); BUN 17 mg/dL (7-18); Bilirubin, Total 0.4 mg/dL (0.2-1.0); CO2 26.1 mmol/L (21.0-32.0); CREATININE 1.21 mg/dL (0.55-1.02); Calcium 9.7 mg/dL (8.5-10.1); Chloride 99 mmol/L (98-107); Glucose 136 mg/dL (74-106); Potassium 3.5 mmol/L (3.5-5.1); Sodium 136 mmol/L (136-145); Total Protein 6.2 g/dL (6.4-8.2)
[2020-05-16 20:04] LABS: Anisocytosis 1+; Basophilic Stippling Present; Polychromasia Present
== END 2020-05-16 16:36 ==
LOC: LBN 16:16
PROVIDERS: PCP Family Medicine; Visit Provider Family Medicine
DX: D50.9 Iron deficiency anemia, unspecified (principal); E51.2 Wernicke's encephalopathy; F10.10 Alcohol abuse, uncomplicated; I10 Essential (primary) hypertension; M62.81 Muscle weakness (generalized); R73.09 Other abnormal glucose
CPT/HCPCS: 80053; 83036; 85025

== ENCOUNTER 2020-06-22 03:17 | Emergency (ER) | payer OTHER, SELFPAY ==
[2020-06-22] VITALS (22 sets, daily range): BP systolic 111–172; BP diastolic 52–89; PULSE 96–122; RESP 14–34; TEMP 36.5; O2SAT 93–98
--- NOTE | 2020-06-22 03:09 | ED.GENADUL_ITS ---
Discharge Plan Disposition Patient Disposition: HOME Condition: Improving Discharge Details Clinical Impression: Alcohol abuse, Itching Primary Care Provider: Lavelle Galindo ED Provider: Paul Chavira Home Meds and New Rx's Prescriptions: New hydroxyzine HCl 25 mg tablet 25 mg PO BID Qty: 30 RF: 0 Continued meclizine 25 mg tablet 25 mg PO TID PRN (Reason: dizziness) Qty: 30 RF: 1 venlafaxine 37.5 mg capsule,extended release 24hr 37.5 mg PO DAILY Qty: 30 RF: 11 venlafaxine 150 mg capsule,extended release 24hr 150 mg PO DAILY Qty: 30 RF: 11 hydrochlorothiazide 12.5 mg tablet 12.5 mg PO DAILY Qty: 90 RF: 3 gabapentin 300 mg capsule 300 mg PO BID Qty: 90 RF: 5 metoprolol tartrate 50 mg tablet 50 mg PO BID Qty: 180 RF: 3 sennosides [Senokot] 8.6 mg tablet 8.6 mg PO BID Qty: 180 RF: 3 magnesium oxide 400 mg magnesium capsule 400 mg PO BID Qty: 180 RF: 3 celecoxib [Celebrex] 100 mg capsule 100 mg PO BID Qty: 60 RF: 2 amlodipine 10 mg tablet 10 mg PO DAILY Qty: 90 RF: 3 pantoprazole 40 mg tablet,delayed release (DR/EC) 40 mg PO DAILY Qty: 90 RF: 3 Ensure Active High Protein Liquid 414 ml PO DAILY Qty: 81423 RF: 11 multivitamin [Multiple Vitamins] Tablet 1 tab PO DAILY Qty: 90 RF: 3 potassium chloride [Klor-Con M10] 10 mEq tablet,ER particles/crystals 10 meq PO DAILY Qty: 90 RF: 3 dicyclomine 10 mg capsule 10 mg PO QID PRN (Reason: belly pain) Qty: 40 RF: 0 sucralfate 1 gram tablet 1 g PO AC & HS Qty: 120 RF: 5 ipratropium-albuterol 0.5 mg-3 mg(2.5 mg base)/3 mL solution for nebulization 3 ml IH QID PRN (Reason: shortness of breath) Qty: 90 RF: 3 fluticasone propionate 50 mcg/actuation spray,suspension 1 spray NS daily prn Qty: 9.9 RF: 2 folic acid 1 mg Tablet 1 mg PO DAILY Qty: 14 RF: 0 Refresh Plus 0.5 % Dropperette 1 drp OU Q4H WHILE AWAKE Qty: 30 RF: 0 thiamine mononitrate (vit B1) [Vitamin B-1 (mononitrate)] 100 mg Tablet 100 mg PO DAILY Qty: 10 RF: 0 ondansetron HCl [Zofran] 4 mg tablet 4 mg PO Q8H Qty: 12 RF: 0 ascorbic acid (vitamin C) [Vitamin C] 500 mg Tablet 500 mg PO BID Qty: 30 RF: 0 cephalexin 500 mg Capsule 500 mg PO BID Qty: 7 RF: 0 ferrous sulfate 325 mg (65 mg iron) Tablet 325 mg PO BID Qty: 60 RF: 0 lidocaine [Lidoderm] 5 % Adhesive Patch,Medicated 2 patch topical Q24H Qty: 10 RF: 0 Bio-K plus 50 billion cell Capsule,Delayed Release(Dr/Ec) 1 cap PO DAILY Qty: 60 RF: 0 Discharge Instructions Instructions: Abuse of Alcohol (ED), Itchy Skin (ED) Additional Instructions: Please do your best to decrease your alcohol intake. Please make sure to evaluate for any potential fleas or bedbugs may be causing some of your itching. Wash all of your clothes and linens. Please take the Atarax as needed for itching. If you notice any worsening of your symptoms, or any new symptoms such as vomiting, diarrhea, fever, chills, shortness of breath, chest pain, numbness, weakness, or fainting , please return immediately to the emergency department for reevaluation. Please follow up with your primary care provider as soon as possible for reassessment and reevaluation. As always, it was a pleasure participating in your medical care today. Referrals: Lavelle Galindo [Primary Care Provider] - Medical Decision Making This is a 75-year-old female with a past medical history of chronic alcoholism, chronic rib fractures, chronic medical noncompliance, chronic presacral mass which is stable, presents today via EMS for medical evaluation. Patient fell out of her chair at home. When EMS arrived as a notable amount of empty alcohol bottles surrounding her. They helped her up, and then felt that her mood was a typical compared to normal and recommended she come into the ER for further evaluation. Patient is a notably poor historian both at baseline and currently. She refuses to interact with me. She was certainly more interactive with EMS they were here. Currently has no complaints at this time. She refuses to answer any other questions and states that she is fine. Exam is relatively unremarkable, no evidence of significant trauma midline C-spine or thoracic tenderness. No nuchal rigidity or signs of managements. No focal neurologic deficits or evidence of significant trauma. Patient notably refuses to interact with myself, and I am uncertain why. She will at her own whim interact with nursing staff or EMS, however in a notably aggressive fashion. She has no complaints at this time. With the amount of alcohol bottles that were surrounding her eyes do certainly suspect a component of alcohol intoxication. Due to the patient's lack of forthcoming attitude, we will get basic laboratory work-up, CT scan of her head to make sure the patient is medically safe and clear of acute emergent etiologies or processes. We will gently rehydrate monitor closely and reassess. 7 AM Patient's laboratory work-up has returned, relatively unremarkable, no white count or bandemia. Ammonia is unremarkable, VBG benign. Potassium 3.1, oral potassium given. Mild anion gap likely secondary to alcohol and mild dehydration. She was rehydrated with normal saline. Renal function good. Initial alcohol level elevated, however after notably prolonged observation. Here in the ED on reassessment the patient demonstrates notable clinical sobriety. No signs of stumbling or intoxication. Patient is vehemently asking to be discharged and I feel this is reasonable to respect the patient's wishes at this time. CT scan negative for acute process. Patient was given Atarax for itching, she had notable improvement with this. I am still uncertain if the itching is secondary to a psychogenic cause or perhaps from an arthropod vector at home. Did recommend that she evaluate her home living scenario for any potential signs of fleas or bedbugs. We will give Atarax for home use. Discussed red flags for which to return. I have extensively reviewed the treatment plan and discharge instructions with the patient. I have addressed all patient concerns at this time. The patient was made aware of what symptoms to monitor for that would warrant a return to the emergency department. Discussed the plan with the patient, they demonstrate verbal understanding and agreement with our assessment and plan at this time. EKG 3: 23 Rate 102, intervals normal, sinus tachycardia, no significant ST elevations or depressions. No evidence of STEMI. FINDINGS: Brain: Mild volume loss No hemorrhage. Mild white matter disease. No mass effect. Cerebral ventricles: No ventriculomegaly. Bones/joints: Unremarkable. No acute fracture. Paranasal sinuses: Visualized sinuses are unremarkable. No fluid levels. Mastoid air cells: Visualized mastoid air cells are well aerated. Soft tissues: Unremarkable. IMPRESSION: No acute intracranial hemorrhage noted Thank you for allowing us to participate in the care of your patient. Dictated and Authenticated by: Dylon Carter MD 06/22/2020 4:10 AM Eastern Time ([place] & [place]) HPI General Date/Time Provider Initiated Documentation: 06/22/20 03:19 . HPI Narrative: This is a 75-year-old female with a past medical history of chronic alcoholism, chronic rib fractures, chronic medical noncompliance, chronic presacral mass which is stable, presents today via EMS for medical evaluation. Patient fell out of her chair at home. When EMS arrived as a notable amount of empty alcohol bottles surrounding her. They helped her up, and then felt that her mood was a typical compared to normal and recommended she come into the ER for further evaluation. Patient is a notably poor historian both at baseline and currently. She refuses to interact with me. She was certainly more interactive with EMS they were here. Currently has no complaints at this time. She refuses to answer any other questions and states that she is fine. Related Data Home Medications Medication Instructions Recorded Confirmed folic acid 1 mg PO DAILY #14 tab 08/11/18 06/13/20 Refresh Plus 1 drp OU Q4H WHILE AWAKE #30 each 06/20/19 06/13/20 venlafaxine 150 mg 150 mg PO DAILY #30 cap 06/27/19 06/13/20 capsule,extended release 24 hr venlafaxine 37.5 mg 37.5 mg PO DAILY #30 cap 06/27/19 06/13/20 capsule,extended release 24 hr amlodipine 10 mg tablet 10 mg PO DAILY #90 tab 06/28/19 06/13/20 magnesium oxide 400 mg PO BID #180 cap 07/17/19 06/13/20 food supplemt, lactose-reduced 414 ml PO DAILY #90362 ml 08/24/19 06/13/20 pantoprazole 40 mg tablet,delayed 40 mg PO DAILY #90 tab 08/24/19 06/13/20 release gabapentin 300 mg capsule 300 mg PO BID #90 cap 08/28/19 06/13/20 hydrochlorothiazide 12.5 mg tablet 12.5 mg PO DAILY #90 tab 08/28/19 06/13/20 metoprolol tartrate 50 mg tablet 50 mg PO BID #180 tab 08/28/19 06/13/20 sennosides 8.6 mg tablet 8.6 mg PO BID #180 tab 08/28/19 06/13/20 meclizine 25 mg tablet 25 mg PO TID PRN #30 tab 09/14/19 06/13/20 multivitamin 1 tab PO DAILY #90 tab 09/14/19 06/13/20 potassium chloride 10 mEq 10 meq PO DAILY #90 tab 09/14/19 06/13/20 tablet,extended release(part/cryst) dicyclomine 10 mg capsule 10 mg PO QID PRN #40 cap 11/06/19 06/13/20 sucralfate 1 gram tablet 1 g PO AC & HS #120 tab 11/06/19 06/13/20 thiamine mononitrate (vit B1) 100 mg PO DAILY #10 tab 11/23/19 06/13/20 [Vitamin B-1 (mononitrate)] ipratropium 0.5 mg-albuterol 3 mg 3 ml IH QID PRN #90 ml 01/04/20 06/13/20 (2.5 mg base)/3 mL nebulization soln ondansetron HCl [Zofran] 4 mg PO Q8H #12 tab 02/07/20 06/13/20 fluticasone propionate 50 1 spray NS daily prn #9.9 ml 03/25/20 06/13/20 mcg/actuation nasal spray,suspension Bio-K plus 1 cap PO DAILY #60 cap 05/12/20 06/13/20 ascorbic acid (vitamin C) [Vitamin 500 mg PO BID #30 tab 05/12/20 06/13/20 C] cephalexin 500 mg PO BID #7 cap 05/12/20 06/13/20 ferrous sulfate 325 mg PO BID #60 tab 05/12/20 06/13/20 lidocaine [Lidoderm] 2 patch TOPICAL Q24H #10 ea 05/12/20 06/13/20 celecoxib 100 mg capsule 100 mg PO BID #60 cap 06/13/20 06/13/20 hydroxyzine HCl 25 mg PO BID #30 tab 06/22/20 Previous Rx's Medication Instructions Recorded folic acid 1 mg PO DAILY #14 tab 08/11/18 Refresh Plus 1 drp OU Q4H WHILE AWAKE #30 each 06/20/19 venlafaxine 150 mg 150 mg PO DAILY #30 cap 06/27/19 capsule,extended release 24 hr venlafaxine 37.5 mg 37.5 mg PO DAILY #30 cap 06/27/19 capsule,extended release 24 hr amlodipine 10 mg tablet 10 mg PO DAILY #90 tab 06/28/19 magnesium oxide 400 mg PO BID #180 cap 07/17/19 food supplemt, lactose-reduced 414 ml PO DAILY #35184 ml 08/24/19 pantoprazole 40 mg tablet,delayed 40 mg PO DAILY #90 tab 08/24/19 release gabapentin 300 mg capsule 300 mg PO BID #90 cap 08/28/19 hydrochlorothiazide 12.5 mg tablet 12.5 mg PO DAILY #90 tab 08/28/19 metoprolol tartrate 50 mg tablet 50 mg PO BID #180 tab 08/28/19 sennosides 8.6 mg tablet 8.6 mg PO BID #180 tab 08/28/19 meclizine 25 mg tablet 25 mg PO TID PRN #30 tab 09/14/19 multivitamin 1 tab PO DAILY #90 tab 09/14/19 potassium chloride 10 mEq 10 meq PO DAILY #90 tab 09/14/19 tablet,extended release(part/cryst) dicyclomine 10 mg capsule 10 mg PO QID PRN #40 cap 11/06/19 sucralfate 1 gram tablet 1 g PO AC & HS #120 tab 11/06/19 thiamine mononitrate (vit B1) 100 mg PO DAILY #10 tab 11/23/19 [Vitamin B-1 (mononitrate)] ipratropium 0.5 mg-albuterol 3 mg 3 ml IH QID PRN #90 ml 01/04/20 (2.5 mg base)/3 mL nebulization soln ondansetron HCl [Zofran] 4 mg PO Q8H #12 tab 02/07/20 fluticasone propionate 50 1 spray NS daily prn #9.9 ml 03/25/20 mcg/actuation nasal spray,suspension Bio-K plus 1 cap PO DAILY #60 cap 05/12/20 ascorbic acid (vitamin C) [Vitamin 500 mg PO BID #30 tab 05/12/20 C] cephalexin 500 mg PO BID #7 cap 05/12/20 ferrous sulfate 325 mg PO BID #60 tab 05/12/20 lidocaine [Lidoderm] 2 patch TOPICAL Q24H #10 ea 05/12/20 celecoxib 100 mg capsule 100 mg PO BID #60 cap 06/13/20 hydroxyzine HCl 25 mg PO BID #30 tab 06/22/20 Allergies Allergy/AdvReac Type Severity Reaction Status Date / Time Penicillins Allergy Mild Rash Verified 06/13/20 08:31 ramipril Allergy Unknown ITCHING Verified 06/13/20 08:31 meperidine [From Demerol] AdvReac Severe Nausea Verified 06/13/20 08:31 bupropion AdvReac Mild GI upset Verified 06/13/20 08:31 AMBER Inhibitors AdvReac Unknown COUGH Verified 06/13/20 08:31 alendronate sodium AdvReac Unknown GI Distress Verified 06/13/20 08:31 clarithromycin AdvReac Unknown intolerant Verified 06/13/20 08:31 paroxetine AdvReac Unknown Diarrhea Verified 06/13/20 08:31 General JORDAN: 3 Review of Systems All systems reviewed & are unremarkable except as noted in HPI and below PFSH Medical History Adjustment disorder with depressed mood AMBER (acute kidney injury) Alcohol abuse Alcoholic gastritis without bleeding Alcoholic ketosis Allergic rhinitis Anemia (12/20/16) Back pain, chronic Calcific tendinitis of left shoulder CAP (community acquired pneumonia) Cataract (11/07/15) Cervical radicular pain neck pain and DJD [facility] 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) pls refrain from alcohol Chronic alcoholism she will not stop drinking unless she checks with me, so that we can help her avert withdrawal I do not think she is capable on her own--she would need placement to achieve required goal of 3 months of sobriety Chronic diarrhea Closed displaced fracture of proximal phalanx of right index finger with routine healing (06/03/17) Closed right humeral fracture Contusion of left little finger Corneal ulcer, right (~08/23/18) 08/23/18; [facility] Dehydration Depression Diarrhea Discharge planning issues DVT prophylaxis Elev transaminase/LDH due to alcohol Epigastric abdominal pain Fall as cause of accidental injury at home as place of occurrence Genital herpes simplex recurrent gential; suppressive Valtrex GERD (gastroesophageal reflux disease) GI bleed (12/20/16) Head contusion Headache History of alcohol abuse Humerus fracture (09/12/19) Right Hyperlipidemia Hypertension Incidental lung nodule, greater than or equal to 8mm 1cm, spiculated, stable for many years, recommend f/u in 6 mo Macrocytosis (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 Multiple rib fractures 03/11/19 [facility] Nausea and vomiting in adult Non-cardiac chest pain (09/21/16) [facility] [place]/21/16 NEGATIVE MP Osteoarthritis Osteopenia Palliative care patient (03/21/17) Pancreatitis, alcoholic, acute Peripheral edema Pleural effusion on left 03/11/19 [facility] Presacral mass (~09/15/18) 09/15/18 [facility] Right rib fracture Sacral mass Sciatica right, epidural injuections [facility] Tendinitis of left rotator cuff Tubular adenoma of colon (01/28/17) Urinary incontinence 01/24/13 urethral suspension and sling at [facility] (bladder suspension 1991) UTI (urinary tract infection) Vision loss of right eye 08/17/18;[facility] Wernicke encephalopathy Surgical History Bladder Surgery suspension Colonoscopy - MAC (01/28/17) EGD - MAC (12/20/16) History of bilateral ligation of fallopian tubes History of Surgical Procedure a. Bladder repair. Ligation of fallopian tube Repair bladder injury, simple Family History Mother No problems noted. Father , DROWNED at age 50. No problems noted. Sister Personal history of malignant neoplasm MELANOMA Sister No problems noted. Grandfather Personal history of malignant neoplasm STOMACH Grandfather Personal history of malignant neoplasm PROSTATE Grandmother Heart disease [place] Acute ill-defined cerebrovascular disease Grandmother Personal history of malignant neoplasm UTERINE Aunt , [place] Heart disease [place] Aunt , [place] Heart disease Brother No problems noted. Social History Smoking/Tobacco Use Status: Former Tobacco Use Alcohol Intake: current Alcohol Intake frequency: 3 or more drinks per day Alcohol type: hard liquor Drug use: Never Substance use type: does not use Current gender identity: female Do you feel safe at home: Yes Do you feel safe in your relationship?: Yes Exam Narrative Exam Narrative: 1.Const: Appears older than stated age 2.Eyes: PERRL, no conjunctival injection, and symmetrical lids. 3.ENT: Atraumatic external nose and ears. Moist MM. Neck: Symmetric, trachea midline, No thyromegaly. No signs of gross trauma 4.CVS: +S1/S2, No murmurs or gallops. Peripheral pulses 2+ and equal in all extremities. Brisk capillary refill in all extremities. 5.RESP: Unlabored respiratory effort. Clear to auscultation bilaterally. No wheezes rales or rhonchi, no signs of trauma 6.GI: Soft, minimally distended, bowel sounds present, no focal tenderness, mild irritation with palpation but no peritoneal signs. No evidence of an acute surgical abdomen. 7.MSK: Normocephalic/Atraumatic, Extremities w/o deformity or ttp No cyanosis or clubbing, Normal movement of all extremities. Patient moves all extremities well, no signs of significant trauma or deformity. No asterixis 8.Skin: Warm, Dry. Small iatrogenic appearing scratch salomon and lesions on the abdomen and arms in areas that can be itched. No evidence of significant lesions in the intertriginous areas. 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 No focal neurologic deficits. 10.Psych: Patient responds to commands by EMS and nursing staff but is currently not responding to commands by myself. She will often randomly interject during conversation or questions, and she definitely makes clear and concise statements relevant to the conversation or current scenario. However the seem to be at her women.
--- NOTE | 2020-06-22 03:15 | RT.EKG_ITS ---
APPROVED REPORT Exam: Resting ECG Patient Location: E HR:102 bpm ECG Measurements Heart Rate 102 AXIS RI 209 P 61 QRSd 90 QRS -24 QT 358 T -6 QTc 467 Conclusion Sinus tachycardia...rate> 99 Borderline prolonged RI interval...RI >207, V-rate 91-120 Left ventricular hypertrophy...multiple voltage criteria Inferior infarct, old...Q >35mS, II III aVF Physician comment: EKG 3: 23 Rate 102, intervals normal, sinus tachycardia, no significant ST elevations or depressions. No evid ence of STEMI.
--- NOTE | 2020-06-22 03:15 | DI.CT_ITS ---
EXAM: CT HEAD WO CLINICAL HISTORY: fall, altered TECHNIQUE: COMPARISON: CT CT HEAD CERVICAL SPINE WO from 04/19/2020 FINDINGS: Noncontrast cranial CT was performed. There is moderate generalized cerebral atrophy. There are mil d patchy areas of decreased attenuation consistent with microvascular ischemic changes. No evidence of acute intracranial hemorrhage, mass effect, or midline shift. The orbital and temporal bone struc tures appear intact. Visualized paranasal sinuses and mastoid air cells appear clear. IMPRESSION: No evidence of acute process. RADIATION DOSE DELIVERED: 680.56mGy.cm Total DLP
[2020-06-22] MEDS: Normal Saline 1,000 ML 1000 ML IV (03:30)
[2020-06-22 03:52] LABS: BE (Venous) 0 mmol/L (-2-3); HCO3 (Venous) 25 mmol/L (23-28); O2 Sat (Venous) 62 %; TCO2 (Venous) 22 mmol/L (24-29); pCO2 (Venous) 39 mmHg (41-51); pH (Venous) 7.41 (7.31-7.41); pO2 (Venous) 36 mmHg
[2020-06-22 03:53] LABS: Abs Immature Grans 0.03 10^3/uL (0.0-0.06); Absolute Basophil Count 0.03 10^3/uL (0.0-0.2); Absolute Lymphocyte Count 1.94 10^3/uL (1.2-3.4); Absolute Monocyte Count 0.42 10^3/uL (0.1-0.8); Absolute Neutrophil Count 2.72 10^3/uL (1.2-6.7); Basophils % 0.6; HCT 37.8 % (36.0-46.0); Immature Grans % 0.6; Lymphocytes % 37.7; MCH 29.9 pg (27.0-33.0); MCHC 31.7 % (32.0-36.0); MCV 94.3 fL (80-95); MPV 8.6 fL (8.0-11.0); Monocytes % 8.2; Neutrophils % 52.9; Nucleated RBC 0 %; Platelet Count 212 10^3/uL (130-400); RBC 4.01 10^6/uL (3.93-5.22); RDW 17.5 % (11.7-14.6); RDW-SD 61.5 fL; WBC 5.14 10^3/uL (4.4-10.8)
[2020-06-22 04:07] LABS: ALT 28 U/L (14-59); AST 37 U/L (15-37); Albumin 3.9 g/dL (3.4-5.0); Alkaline Phosphatase 172 U/L (46-116); Anion Gap 15.3 mmol/L (3-11); BUN 19 mg/dL (7-18); Bilirubin, Total 0.9 mg/dL (0.2-1.0); CO2 25.7 mmol/L (21.0-32.0); CREATININE 0.96 mg/dL (0.55-1.02); Calcium 10.4 mg/dL (8.5-10.1); Chloride 101 mmol/L (98-107); Estimated GFR 56.81 (mL/min/1.73m2); Glucose 114 mg/dL (74-106); Potassium 3.1 mmol/L (3.5-5.1); Sodium 142 mmol/L (136-145); Total Protein 7.9 g/dL (6.4-8.2)
--- NOTE | 2020-06-22 04:10 | DI.VRAD_ITS ---
PROCEDURE INFORMATION: Exam: CT Head Without Contrast Exam date and time: 06/22/2020 3:49 AM Age: 75 years old Clinical indication: Injury or trauma; Blunt trauma (contusions or hematomas); Altered mental status/memory loss; Patient HX: Fall, altered TECHNIQUE: Imaging protocol: Computed tomography of the head without contrast. COMPARISON: CT HEAD CERVICAL SPINE WO 04/19/2020 3:53 PM FINDINGS: Brain: Mild volume loss No hemorrhage. Mild white matter disease. No mass effect. Cerebral ventricles: No ventriculomegaly. Bones/joints: Unremarkable. No acute fracture. Paranasal sinuses: Visualized sinuses are unremarkable. No fluid levels. Mastoid air cells: Visualized mastoid air cells are well aerated. Soft tissues: Unremarkable. IMPRESSION: No acute intracranial hemorrhage noted Dictated and Authenticated by: Dylon Carter MD. Ordering:SHADI Miller MD
[2020-06-22 04:14] LABS: Ammonia 16 umol/L (11-32); ETHANOL BLOOD 260.5 mg/dL (<3)
[2020-06-22] MEDS: hydrOXYzine HCL 25 MG TAB (04:36)
[2020-06-22] MEDS: Normal Saline 500 ML IV (04:37)
[2020-06-22] MEDS: Potassium Chloride 20 MEQ TABCR 40 MEQ PO (04:37)
--- NOTE | 2020-06-22 06:58 | NUR.NOTE ---
Nursing Note: Attempted to discharge patient and assist with getting clothes on. Patient refusing to help change self or stay awake. Multiple sternal rubs to stimulate patient. Dr Chavira made aware, will not be discharged at this time.
== END 2020-06-22 09:35 | disposition home or self-care (01) ==
LOC: ER 05:16
PROVIDERS: Emergency Provider Student in an Organized Health Care Education/Training Program; PCP Family Medicine
DX: F10.120 Alcohol abuse with intoxication, uncomplicated (principal); L29.8 Other pruritus; Y90.8 Blood alcohol level of 240 mg/100 ml or more; E87.6 Hypokalemia; E86.0 Dehydration; W07.XXXA Fall from chair, initial encounter
CPT/HCPCS: 36415; 80053; 82805; 93005; 96360; 96361; 99285; 70450; 80320; 82140; 85025; 93010; 99284

== ENCOUNTER 2020-08-08 14:36 | Inpatient (IN) | payer OTHER, SELFPAY ==
[2020-08-08] VITALS (94 sets, daily range): BP systolic 164–198; BP diastolic 76–175; PULSE 103–138; RESP 17–32; TEMP 36.4–37.2; O2SAT 75–100
--- NOTE | 2020-08-08 14:45 | RT.EKG_ITS ---
APPROVED REPORT Exam: Resting ECG Patient Location: E HR:115 bpm ECG Measurements Heart Rate 115 AXIS ID 174 P 56 QRSd 89 QRS -29 QT 360 T -17 QTc 499 Conclusion Sinus tachycardia...rate> 99 Left ventricular hypertrophy...multiple voltage criteria Nonspecific T abnormalities, inferior leads...T <-0.10mV, II III aVF
--- NOTE | 2020-08-08 15:00 | W.ED.GENAD ---
Discharge Plan Disposition Patient Disposition: [facility] INPATIENT Condition: Improving Discharge Details Clinical Impression: Alcohol abuse, Hypomagnesemia, Intractable vomiting Admit Date/Time: 08/08/20 20:22 Admit Provider: Saeed Cosme Attending Provider: Saeed Cosme Primary Care Provider: Lavelle Galindo ED Provider: Moose Lafleur Discharge Data Discharge Date/Time-TO BE ENTERED AT DEPARTURE: 08/08/20 21:15 Medical Decision Making 75-year-old female brought by EMS for day 2 of nausea and vomiting at home. She is an alcoholic & states her last drink was 2 days ago. She denies diarrhea. She did not note a fever but the rescue personnel questioned an elevated temperature on route. She arrives to the ER with a temp of 36.8, pulse 137, blood pressure 196/175. Differential gnosis includes dehydration, electrolyte abnormalities, acidosis. Patient IV access established, fluids initiated and she is given antiemetics as well as Ativan. Her labs reveal negative ethyl alcohol, lipase is normal as are LFTs. Her chemistries reveal sodium 138, potassium 3.4, chloride 96, bicarb 27, BUN 22 and creatinine 1.2. White blood cell count 5, hematocrit 37.9, platelets 149. Patient actually has some improvements with fluids, antiemetics, Ativan. She attempted to try liquids by mouth. At approximately 5 hours of care she developed recurrent vomiting, her heart rate increased to 122 and she was unable to take p.o. She will require admission for intractable vomiting and possible alcohol withdrawal. Case discussed with Dr. Cosme. HPI General Mode of arrival: EMS. Date/Time Provider Initiated Documentation: 08/08/20 14:37. Limitations to Documentation: no limitations. Information obtained by: patient and EMS. History of Present Illness 75 year old F presents to the emergency department with the chief complaint of Vomiting that began yesterday, last drink 2 days ago, described as moderate, and is localized to the abdomen. Patient reports no radiation. Patient started experiencing this day(s) and it has been intermittent. No relieving factors improve symptom(s), No exacerbating factors reported . Patient notes loss of appetite and nausea/vomiting. Patient did receive the following treatments prior to arrival, none Related Data Home Medications Medication Instructions Recorded Confirmed Refresh Plus 1 drp OU Q4H WHILE AWAKE #30 each 06/20/19 08/08/20 venlafaxine 150 mg 150 mg PO DAILY #30 cap 06/27/19 08/08/20 capsule,extended release 24 hr venlafaxine 37.5 mg 37.5 mg PO DAILY #30 cap 06/27/19 08/08/20 capsule,extended release 24 hr amlodipine 10 mg tablet 10 mg PO DAILY #90 tab 06/28/19 08/08/20 magnesium oxide 400 mg PO BID #180 cap 07/17/19 08/05/20 food supplemt, lactose-reduced 414 ml PO DAILY #56863 ml 08/24/19 08/05/20 pantoprazole 40 mg tablet,delayed 40 mg PO DAILY #90 tab 08/24/19 08/08/20 release gabapentin 300 mg capsule 300 mg PO BID #90 cap 08/28/19 08/08/20 hydrochlorothiazide 12.5 mg tablet 12.5 mg PO DAILY #90 tab 08/28/19 08/08/20 metoprolol tartrate 50 mg tablet 50 mg PO BID #180 tab 08/28/19 08/08/20 multivitamin 1 tab PO DAILY #90 tab 09/14/19 08/08/20 potassium chloride 10 mEq 10 meq PO DAILY #90 tab 09/14/19 08/08/20 tablet,extended release(part/cryst) dicyclomine 10 mg capsule 10 mg PO QID PRN #40 cap 11/06/19 08/08/20 sucralfate 1 gram tablet 1 g PO AC & HS #120 tab 11/06/19 08/08/20 ipratropium 0.5 mg-albuterol 3 mg 3 ml IH QID PRN #90 ml 01/04/20 08/08/20 (2.5 mg base)/3 mL nebulization soln fluticasone propionate 50 1 spray NS daily prn #9.9 ml 03/25/20 08/08/20 mcg/actuation nasal spray,suspension Bio-K plus 1 cap PO DAILY #60 cap 05/12/20 08/08/20 ascorbic acid (vitamin C) [Vitamin 500 mg PO BID #30 tab 05/12/20 08/08/20 C] celecoxib 100 mg capsule 100 mg PO BID #60 cap 06/13/20 08/08/20 hydroxyzine HCl 25 mg tablet 50 mg PO BID #30 tab 07/16/20 08/08/20 triamcinolone acetonide 0.025 % 1 applic TOPICAL BID #15 g 07/17/20 08/08/20 topical cream lifitegrast 5 % eye drops in a 1 drp OPHTHALMIC (EYE) BID 08/05/20 08/08/20 dropperette permethrin 5 % topical cream 1 applic TOPICAL .q 7 days #60 g 08/05/20 08/08/20 sennosides [Senokot] 8.6 mg PO PRN PRN 08/08/20 08/08/20 chlordiazepoxide HCl 25 mg PO Q12H #7 cap 08/09/20 ondansetron 4 mg PO Q8H PRN #10 tab 08/09/20 Previous Rx's Medication Instructions Recorded Refresh Plus 1 drp OU Q4H WHILE AWAKE #30 each 06/20/19 venlafaxine 150 mg 150 mg PO DAILY #30 cap 06/27/19 capsule,extended release 24 hr venlafaxine 37.5 mg 37.5 mg PO DAILY #30 cap 06/27/19 capsule,extended release 24 hr amlodipine 10 mg tablet 10 mg PO DAILY #90 tab 06/28/19 magnesium oxide 400 mg PO BID #180 cap 07/17/19 food supplemt, lactose-reduced 414 ml PO DAILY #51767 ml 08/24/19 pantoprazole 40 mg tablet,delayed 40 mg PO DAILY #90 tab 08/24/19 release gabapentin 300 mg capsule 300 mg PO BID #90 cap 08/28/19 hydrochlorothiazide 12.5 mg tablet 12.5 mg PO DAILY #90 tab 08/28/19 metoprolol tartrate 50 mg tablet 50 mg PO BID #180 tab 08/28/19 multivitamin 1 tab PO DAILY #90 tab 09/14/19 potassium chloride 10 mEq 10 meq PO DAILY #90 tab 09/14/19 tablet,extended release(part/cryst) dicyclomine 10 mg capsule 10 mg PO QID PRN #40 cap 11/06/19 sucralfate 1 gram tablet 1 g PO AC & HS #120 tab 11/06/19 ipratropium 0.5 mg-albuterol 3 mg 3 ml IH QID PRN #90 ml 01/04/20 (2.5 mg base)/3 mL nebulization soln fluticasone propionate 50 1 spray NS daily prn #9.9 ml 03/25/20 mcg/actuation nasal spray,suspension Bio-K plus 1 cap PO DAILY #60 cap 05/12/20 ascorbic acid (vitamin C) [Vitamin 500 mg PO BID #30 tab 05/12/20 C] celecoxib 100 mg capsule 100 mg PO BID #60 cap 06/13/20 hydroxyzine HCl 25 mg tablet 50 mg PO BID #30 tab 07/16/20 triamcinolone acetonide 0.025 % 1 applic TOPICAL BID #15 g 07/17/20 topical cream permethrin 5 % topical cream 1 applic TOPICAL .q 7 days #60 g 08/05/20 chlordiazepoxide HCl 25 mg PO Q12H #7 cap 08/09/20 ondansetron 4 mg PO Q8H PRN #10 tab 08/09/20 Allergies Allergy/AdvReac Type Severity Reaction Status Date / Time Penicillins Allergy Mild Rash Verified 08/08/20 15:16 ramipril Allergy Unknown ITCHING Verified 08/08/20 15:16 meperidine [From Demerol] AdvReac Severe Nausea Verified 08/08/20 15:16 bupropion AdvReac Mild GI upset Verified 08/08/20 15:16 AMBER Inhibitors AdvReac Unknown COUGH Verified 08/08/20 15:16 alendronate sodium AdvReac Unknown GI Distress Verified 08/08/20 15:16 clarithromycin AdvReac Unknown intolerant Verified 08/08/20 15:16 paroxetine AdvReac Unknown Diarrhea Verified 08/08/20 15:16 General Stated Complaint: Nausea/Vomit/Diar JORDAN: 3 Review of Systems Narrative: 6 systems reviewed and otherwise negative [facility] Medical History (Updated 08/11/20 @ 18:36 by Lavelle Galindo) Adjustment disorder with depressed mood AMBER (acute kidney injury) Alcohol abuse Alcoholic gastritis without bleeding Alcoholic ketosis Allergic rhinitis Anemia (12/20/16) Back pain, chronic Calcific tendinitis of left shoulder CAP (community acquired pneumonia) Cataract (11/07/15) Cervical radicular pain neck pain and DJD [facility] 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) pls refrain from alcohol Chronic alcoholism she will not stop drinking unless she checks with me, so that we can help her avert withdrawal I do not think she is capable on her own--she would need placement to achieve required goal of 3 months of sobriety Chronic diarrhea Closed displaced fracture of proximal phalanx of right index finger with routine healing (06/03/17) Closed right humeral fracture Contusion of left little finger Corneal ulcer, right (~08/23/18) 08/23/18; [facility]- Dehydration Depression Diarrhea Discharge planning issues DVT prophylaxis Dystrophic nail Elev transaminase/LDH due to alcohol Epigastric abdominal pain Fall as cause of accidental injury at home as place of occurrence Genital herpes simplex recurrent gential; suppressive Valtrex GERD (gastroesophageal reflux disease) GI bleed (12/20/16) Head contusion Headache History of alcohol abuse Humerus fracture (09/12/19) Right Hyperlipidemia Hypertension Incidental lung nodule, greater than or equal to 8mm 1cm, spiculated, stable for many years, recommend f/u in 6 mo Macrocytosis (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 Multiple rib fractures 03/11/19 [facility] Nausea and vomiting in adult Non-cardiac chest pain (09/21/16) [facility] 09/21/16 NEGATIVE MP Osteoarthritis Osteopenia Palliative care patient (03/21/17) Pancreatitis, alcoholic, acute Peripheral edema Pleural effusion on left 03/11/19 [facility] Presacral mass (~09/15/18) 09/15/18 [facility] Right rib fracture Sacral mass Sciatica right, epidural injuections [facility] Tendinitis of left rotator cuff Tubular adenoma of colon (01/28/17) Urinary incontinence 01/24/13 urethral suspension and sling at [facility] (bladder suspension 1991) UTI (urinary tract infection) Vision loss of right eye 08/17/18;[facility] Wernicke encephalopathy Surgical History Bladder Surgery suspension Colonoscopy - MAC (01/28/17) EGD - MAC (12/20/16) History of bilateral ligation of fallopian tubes History of Surgical Procedure a. Bladder repair. Ligation of fallopian tube Repair bladder injury, simple Family History Mother No problems noted. Father , DROWNED at age 50. No problems noted. Sister Personal history of malignant neoplasm MELANOMA Sister No problems noted. Grandfather Personal history of malignant neoplasm STOMACH Grandfather Personal history of malignant neoplasm PROSTATE Grandmother Heart disease [place] Acute ill-defined cerebrovascular disease Grandmother Personal history of malignant neoplasm UTERINE Aunt , [place] Heart disease [place] Aunt , [place] Heart disease Brother No problems noted. Social History Smoking/Tobacco Use Status: Former Tobacco Use Quit Date: 08/05/20 Smoking risk assessment performed?: Yes Alcohol Intake: current Alcohol Intake frequency: 3 or more drinks per day Alcohol type: hard liquor Drug use: Never Substance use type: does not use Current gender identity: female Do you feel safe at home: Yes Do you feel safe in your relationship?: Yes Exam Narrative Exam Narrative: GEN: awake, alert, oriented 3. Pleasant, well groomed, interactive. HEAD: Normocephalic, atraumatic ENT: Mucous membranes dry, oropharynx unremarkable, External ear exam unremarkable EYES: PERRL, EOMI NECK: Full ROM, no CANDY, no menigismus CHEST/RESP: Nontender, clear to auscultation bilateral, no wheeze/rhonchi/rales CARDIOVASCULAR: Regular and tachycardic, no murmur, rub shirin. 2+ Rad pulse bilateral ABDOMEN: Soft, epigastric tenderness, no mass. +Bowel sounds EXT: Full ROM, no edema, no rash Neuro: Grossly normal neurologic exam, conversant, interactive. Psych: Speech fluent, thoughts congruent, affect flat Course Vital Signs Vital signs: Vital Signs Temperature 36.8 C 08/08/20 14:40 Pulse 137 H 08/08/20 14:40 Respiratory Rate 08/08/20 14:40 Blood Pressure 196/175 H 08/08/20 14:40 Pulse Oximetry 96 08/08/20 14:40 Temperature 36.8 C 08/08/20 14:40 Pulse 137 H 08/08/20 14:40 Respiratory Rate 08/08/20 14:40 Respiratory Effort 08/08/20 14:44 Blood Pressure 196/175 H 08/08/20 14:40 Blood Pressure Position Supine 08/08/20 14:40 Pulse Oximetry 96 08/08/20 14:40 Oxygen Delivery Method Room Air 08/08/20 14:40 Oxygen Flow Rate 0 08/08/20 14:40
[2020-08-08] MEDS: Normal Saline 1,000 ML 1000 ML IV ×2 (16:25→17:15)
[2020-08-08] MEDS: Ondansetron 4 MG/2 ML VIAL IVP ×2 (16:25→19:33)
[2020-08-08] MEDS: LORazepam 2 MG/ML VIAL 1 MG IVP (16:28)
[2020-08-08 16:36] LABS: Abs Immature Grans 0.02 10^3/uL (0.0-0.06); Absolute Basophil Count 0.01 10^3/uL (0.0-0.2); Absolute Lymphocyte Count 0.21 10^3/uL (1.2-3.4); Absolute Monocyte Count 0.19 10^3/uL (0.1-0.8); Absolute Neutrophil Count 5.24 10^3/uL (1.2-6.7); Basophils % 0.2; HCT 37.9 % (36.0-46.0); HGB 12.8 g/dL (11.2-15.7); Immature Grans % 0.4; Lymphocytes % 3.7; MCH 30.8 pg (27.0-33.0); MCHC 33.8 % (32.0-36.0); MCV 91.1 fL (80-95); MPV 9.5 fL (8.0-11.0); Monocytes % 3.4; Neutrophils % 92.3; Nucleated RBC 0 %; Platelet Count 149 10^3/uL (130-400); RBC 4.16 10^6/uL (3.93-5.22); RDW 13.6 % (11.7-14.6); RDW-SD 45.5 fL; WBC 5.67 10^3/uL (4.4-10.8)
[2020-08-08 17:02] LABS: ALT 47 U/L (14-59); AST 48 U/L (15-37); Albumin 4.2 g/dL (3.4-5.0); Alkaline Phosphatase 119 U/L (46-116); Anion Gap 14.2 mmol/L (3-11); BUN 22 mg/dL (7-18); Bilirubin, Total 2.5 mg/dL (0.2-1.0); CO2 27.8 mmol/L (21.0-32.0); CREATININE 1.28 mg/dL (0.55-1.02); Calcium 10.3 mg/dL (8.5-10.1); Chloride 96 mmol/L (98-107); Estimated GFR 40.76 (mL/min/1.73m2); Glucose 232 mg/dL (74-106); Lipase 45 U/L (73-393); Magnesium 1.3 mg/dL (1.8-2.4); Potassium 3.4 mmol/L (3.5-5.1); Sodium 138 mmol/L (136-145); Troponin I < 0.05 ng/mL (<0.06)
[2020-08-08] MEDS: MAGNESIUM SULFATE 2 GM/50 ML BAG IVPB (17:29)
[2020-08-08] MEDS: MAGNESIUM SULFATE 8.12 MEQ, MULTIVITAMIN 10 ML, THIAMINE 100 MG, FOLIC ACID 1 MG in Nor... 168.867 MG IV (18:26)
--- NOTE | 2020-08-08 20:08 | W.PM.HP.N ---
Date of service: 08/08/20 Time of Service: 20:08 Assessment and Plan Assessment and plan (1) Intractable vomiting: Status: Acute Assessment and plan: No doubt recurrent alcoholic gastritis. Will place NPO, IVF, PPI and prn antiemetics. Alcohol withdrawal: scheduled Librium plus CIWA HTN (robinson plus W/ -- both EtOH and rebound from beta j luis noncompliance): resume beta j luis -- Lopressor 50 now then bid Electrolytes: replace and monitor History of Present Illness History of Present Illness Chief Complaint: vomiting Narrative: 75 female alcoholic with numerous prior admissions for vomiting attributed to alcoholic gastritis. Last drink she states days [employer], here with vomiting since that oliver. In ER findings of note for tachycardia, fluctuating high blood pressure, potassium 3.4 magnesium 1.3, T Bili 2.5, normal Lipase and essentially normal transaminases; EtOH 3.0. Given Mg So4 2 gm, IVF and multiple doses Zofran. Due to persistent vomiting and presumed withdrawal she is admitted for further management. Review of Systems All systems reviewed & are unremarkable except as noted in HPI and below PFSH Medical History Adjustment disorder with depressed mood AMBER (acute kidney injury) Alcohol abuse Alcoholic gastritis without bleeding Alcoholic ketosis Allergic rhinitis Anemia (12/20/16) Back pain, chronic Calcific tendinitis of left shoulder CAP (community acquired pneumonia) Cataract (11/07/15) Cervical radicular pain neck pain and DJD [facility] 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) pls refrain from alcohol Chronic alcoholism she will not stop drinking unless she checks with me, so that we can help her avert withdrawal I do not think she is capable on her own--she would need placement to achieve required goal of 3 months of sobriety Chronic diarrhea Closed displaced fracture of proximal phalanx of right index finger with routine healing (06/03/17) Closed right humeral fracture Contusion of left little finger Corneal ulcer, right (~08/23/18) 08/23/18; [facility] Dehydration Depression Diarrhea Discharge planning issues DVT prophylaxis Elev transaminase/LDH due to alcohol Epigastric abdominal pain Fall as cause of accidental injury at home as place of occurrence Genital herpes simplex recurrent gential; suppressive Valtrex GERD (gastroesophageal reflux disease) GI bleed (12/20/16) Head contusion Headache History of alcohol abuse Humerus fracture (09/12/19) Right Hyperlipidemia Hypertension Incidental lung nodule, greater than or equal to 8mm 1cm, spiculated, stable for many years, recommend f/u in 6 mo Macrocytosis (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 Multiple rib fractures 03/11/19 [facility] Nausea and vomiting in adult Non-cardiac chest pain (09/21/16) [facility] 09/21/16 NEGATIVE MP Osteoarthritis Osteopenia Palliative care patient (03/21/17) Pancreatitis, alcoholic, acute Peripheral edema Pleural effusion on left 03/11/19 [facility] Presacral mass (~09/15/18) 09/15/18 [facility] Right rib fracture Sacral mass Sciatica right, epidural injuections [facility] Tendinitis of left rotator cuff Tubular adenoma of colon (01/28/17) Urinary incontinence 01/24/13 urethral suspension and sling at [facility] (bladder suspension 1991) UTI (urinary tract infection) 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 Bladder repair. Ligation of fallopian tube Repair bladder injury, simple Family History Mother No problems noted. Father , DROWNED at age 50. No problems noted. Sister Personal history of malignant neoplasm MELANOMA Sister No problems noted. Grandfather Personal history of malignant neoplasm STOMACH Grandfather Personal history of malignant neoplasm PROSTATE Grandmother Heart disease [place] Acute ill-defined cerebrovascular disease Grandmother Personal history of malignant neoplasm UTERINE Aunt , [place] Heart disease [place] Aunt , [place] Heart disease Brother No problems noted. Social History Smoking/Tobacco Use Status: Former Tobacco Use Quit Date: 08/05/20 Smoking risk assessment performed?: Yes Alcohol Intake: current Alcohol Intake frequency: 3 or more drinks per day Alcohol type: hard liquor Drug use: Never Substance use type: does not use Current gender identity: female Do you feel safe at home: Yes Do you feel safe in your relationship?: Yes Meds Home Medications and Allergies Home Medications Medication Instructions Recorded Confirmed Type Refresh Plus 1 drp OU Q4H WHILE AWAKE #30 each 06/20/19 08/08/20 Rx venlafaxine 150 mg 150 mg PO DAILY #30 cap 06/27/19 08/08/20 Rx capsule,extended release 24 hr venlafaxine 37.5 mg 37.5 mg PO DAILY #30 cap 06/27/19 08/08/20 Rx capsule,extended release 24 hr amlodipine 10 mg tablet 10 mg PO DAILY #90 tab 06/28/19 08/08/20 Rx magnesium oxide 400 mg PO BID #180 cap 07/17/19 08/05/20 Rx food supplemt, lactose-reduced 414 ml PO DAILY #89910 ml 08/24/19 08/05/20 Rx pantoprazole 40 mg tablet,delayed 40 mg PO DAILY #90 tab 08/24/19 08/08/20 Rx release gabapentin 300 mg capsule 300 mg PO BID #90 cap 08/28/19 08/08/20 Rx hydrochlorothiazide 12.5 mg tablet 12.5 mg PO DAILY #90 tab 08/28/19 08/08/20 Rx metoprolol tartrate 50 mg tablet 50 mg PO BID #180 tab 08/28/19 08/08/20 Rx meclizine 25 mg tablet 25 mg PO TID PRN #30 tab 09/14/19 08/08/20 Rx multivitamin 1 tab PO DAILY #90 tab 09/14/19 08/08/20 Rx potassium chloride 10 mEq 10 meq PO DAILY #90 tab 09/14/19 08/08/20 Rx tablet,extended release(part/cryst) dicyclomine 10 mg capsule 10 mg PO QID PRN #40 cap 11/06/19 08/08/20 Rx sucralfate 1 gram tablet 1 g PO AC & HS #120 tab 11/06/19 08/08/20 Rx ipratropium 0.5 mg-albuterol 3 mg 3 ml IH QID PRN #90 ml 01/04/20 08/08/20 Rx (2.5 mg base)/3 mL nebulization soln fluticasone propionate 50 1 spray NS daily prn #9.9 ml 03/25/20 08/08/20 Rx mcg/actuation nasal spray,suspension Bio-K plus 1 cap PO DAILY #60 cap 05/12/20 08/08/20 Rx ascorbic acid (vitamin C) [Vitamin 500 mg PO BID #30 tab 05/12/20 08/08/20 Rx C] celecoxib 100 mg capsule 100 mg PO BID #60 cap 06/13/20 08/08/20 Rx hydroxyzine HCl 25 mg tablet 50 mg PO BID #30 tab 07/16/20 08/08/20 Rx triamcinolone acetonide 0.025 % 1 applic TOPICAL BID #15 g 07/17/20 08/08/20 Rx topical cream lifitegrast 5 % eye drops in a 1 drp OPHTHALMIC (EYE) BID 08/05/20 08/08/20 History dropperette permethrin 5 % topical cream 1 applic TOPICAL .q 7 days #60 g 08/05/20 08/08/20 Rx sennosides [Senokot] 8.6 mg PO PRN PRN 08/08/20 08/08/20 History Allergies Allergy/AdvReac Type Severity Reaction Status Date / Time Penicillins Allergy Mild Rash Verified 08/08/20 15:16 ramipril Allergy Unknown ITCHING Verified 08/08/20 15:16 meperidine [From Demerol] AdvReac Severe Nausea Verified 08/08/20 15:16 bupropion AdvReac Mild GI upset Verified 08/08/20 15:16 AMBER Inhibitors AdvReac Unknown COUGH Verified 08/08/20 15:16 alendronate sodium AdvReac Unknown GI Distress Verified 08/08/20 15:16 clarithromycin AdvReac Unknown intolerant Verified 08/08/20 15:16 paroxetine AdvReac Unknown Diarrhea Verified 08/08/20 15:16 Exam Narrative Exam Narrative: 177/88, 124, 36.4, 28, 93% RA. HEENT atraumatic; neck supple; lungs clear; heart tachy/regular; abdomen minimal epigastric tenderness; neuro Ox, moves all 4s Results Labs Result diagrams: 08/08/20 16:15 08/08/20 16:15 Labs: Laboratory Results - last 24 hr 08/08/20 08/08/20 16:15 16:15 WBC 5.67 RBC 4.16 Hgb 12.8 Hct 37.9 MCV 91.1 MCH 30.8 MCHC 33.8 RDW 13.6 Plt Count 149 MPV 9.5 Immature Gran % 0.4 Neutrophils % 92.3 Lymphocytes % 3.7 Monocytes % 3.4 Eosinophils % 0.0 Basophils % 0.2 Nucleated RBC % 0 Absolute Neutrophils 5.24 Absolute Lymphocytes 0.21 L Absolute Monocytes 0.19 Absolute Eosinophils 0.00 Absolute Basophils 0.01 Sodium 138 Potassium 3.4 L Chloride 96 L Carbon Dioxide 27.8 Anion Gap 14.2 H BUN 22 H Creatinine 1.28 H Estimated GFR/1.73 m2 40.76 Glucose 232 H Calcium 10.3 H Magnesium 1.3 L Total Bilirubin 2.5 H AST 48 H ALT 47 Alkaline Phosphatase 119 H Troponin I < 0.05 Total Protein 8.0 Albumin 4.2 Lipase 45 Ethyl Alcohol 3.0 Last Vital Signs Temp 36.4 C L 08/08/20 19:35 Pulse 128 H 08/08/20 19:30 Resp 29 H 08/08/20 19:31 BP 177/88 H 08/08/20 19:30 Pulse Ox 93 08/08/20 19:01 COVID-19 Screening Have you, or household traveled for leisure in last 14 days?: No Had IN PERSON contact w/suspected or confirmed C-19 person: No
[2020-08-08] MEDS: Metoprolol 50 MG TAB PO (20:44)
[2020-08-08] MEDS: chlordiazePOXIDE 25 MG CAP PO (20:44)
[2020-08-08] MEDS: Pantoprazole 40 MG VIAL IVP (22:12)
[2020-08-08] MEDS: Normal Saline Flush 10 ML SYR IVP (22:12)
[2020-08-08] MEDS: POTASSIUM CHLORIDE/0.9% NACL 1,000 ML 125 MEQ IV (23:14)
[2020-08-09] MEDS: POTASSIUM CHLORIDE/0.9% NACL 1,000 ML 125 MEQ IV (06:59)
[2020-08-09 07:24] LABS: HCT 35.7 % (36.0-46.0); HGB 11.7 g/dL (11.2-15.7); MCH 30.2 pg (27.0-33.0); MCHC 32.8 % (32.0-36.0); MCV 92.2 fL (80-95); MPV 10.2 fL (8.0-11.0); Platelet Count 124 10^3/uL (130-400); RBC 3.87 10^6/uL (3.93-5.22); RDW 13.7 % (11.7-14.6); RDW-SD 46.1 fL; WBC 4.58 10^3/uL (4.4-10.8)
[2020-08-09 07:30] VITALS: BP 177/87; PULSE 88; RESP 18; TEMP 37.6; O2SAT 99
[2020-08-09 07:39] LABS: Anion Gap 11.3 mmol/L (3-11); BUN 13 mg/dL (7-18); CO2 25.7 mmol/L (21.0-32.0); CREATININE 1.01 mg/dL (0.55-1.02); Calcium 8.7 mg/dL (8.5-10.1); Chloride 104 mmol/L (98-107); Estimated GFR 53.58 (mL/min/1.73m2); Glucose 105 mg/dL (74-106); Magnesium 1.7 mg/dL (1.8-2.4); Potassium 3.1 mmol/L (3.5-5.1); Sodium 141 mmol/L (136-145)
[2020-08-09] MEDS: Metoprolol 50 MG TAB PO (07:45)
[2020-08-09 07:50] VITALS: O2SAT 99
[2020-08-09] MEDS: chlordiazePOXIDE 25 MG CAP PO ×2 (07:50→14:12)
[2020-08-09] MEDS: Potassium Chloride 20 MEQ TABCR 40 MEQ PO (11:08)
[2020-08-09] MEDS: Magnesium Oxide 400 MG TAB 800 MG PO (11:08)
[2020-08-09 14:01] VITALS: BP 145/83; PULSE 86; RESP 18; TEMP 37.4; O2SAT 99
--- NOTE | 2020-08-09 14:08 | DSE_ITS ---
Date of service: 08/09/20 Time of Service: 14:09 DS: Diagnosis Discharge Diagnosis (1) Intractable vomiting: Start date: 08/09/20 Start time: 14:09 Status: Resolved Asessment and Plan: History of alcoholic gastritis with n/v. resolved. improved to baseline. Tolerating diet, vital signs at baseline. CIWA 0. she does not typically go through withdrawal. Will d/c home with antiemetic Librium taper follow up with PCP in 1 week liquids to soft diet until able to tolerate full diet. above case discussed with Dr. Joy who is in agreement. Discharge Plan Disposition Patient Disposition: HOME W/HOME HEALTH SERVICE Condition: Improving Discharge Details Reason For Visit: GASTRITIS, ALCOHOL WITHDRAWAL Admit Date/Time: 08/08/20 20:22 Admit Provider: Saeed Cosme Attending Provider: Saeed Cosme Primary Care Provider: Lavelle Galindo Hospital Course Hospital Course: 75 y.o female with PMH alcoholic gastritis, MARIELA, Cataracts, HTN, HLD, depression, osteopenia admitted to [facility] after presenting to ED for intractable nausea and vomiting. Leticia is well known to us, she is a chronic drinker and takes poor care of herself. After last admission she was transferred to the [facility], after multiple falls. She has become stronger, though she continues to drink. She states last drink was Tuesday. She does not typically withdrawal. On admission mag and potassium were low, blood pressure was elevated she was admitted for further management. Over course of treatment, vital signs improved. She was able to stop vomiting with antiemetics. HR became regular. Magnesium and potassium were repleted. Renal function improved with IV hydration. CIWA was 0-1. She is being discharged home on omeprazole, carafate, zofran, libruim taper. Follow up with PCP in 1 week. Resume home health PT. She denies CP, SOB, N/V/D Home Meds and New Rx's Prescriptions: New chlordiazepoxide HCl 25 mg capsule 25 mg PO Q12H Qty: 7 RF: 0 ondansetron 4 mg tablet,disintegrating 4 mg PO Q8H PRNQty: 10 RF: 0 Continued Xiidra 5 % dropperette 1 drp ophthalmic (eye) BID RF: 0 venlafaxine 37.5 mg capsule,extended release 24hr 37.5 mg PO DAILY Qty: 30 RF: 11 venlafaxine 150 mg capsule,extended release 24hr 150 mg PO DAILY Qty: 30 RF: 11 hydrochlorothiazide 12.5 mg tablet 12.5 mg PO DAILY Qty: 90 RF: 3 gabapentin 300 mg capsule 300 mg PO BID Qty: 90 RF: 5 metoprolol tartrate 50 mg tablet 50 mg PO BID Qty: 180 RF: 3 magnesium oxide 400 mg magnesium capsule 400 mg PO BID Qty: 180 RF: 3 celecoxib [Celebrex] 100 mg capsule 100 mg PO BID Qty: 60 RF: 2 amlodipine 10 mg tablet 10 mg PO DAILY Qty: 90 RF: 3 pantoprazole 40 mg tablet,delayed release (DR/EC) 40 mg PO DAILY Qty: 90 RF: 3 Ensure Active High Protein Liquid 414 ml PO DAILY Qty: 49793 RF: 11 multivitamin [Multiple Vitamins] Tablet 1 tab PO DAILY Qty: 90 RF: 3 potassium chloride [Klor-Con M10] 10 mEq tablet,ER particles/crystals 10 meq PO DAILY Qty: 90 RF: 3 dicyclomine 10 mg capsule 10 mg PO QID PRN (Reason: belly pain) Qty: 40 RF: 0 sucralfate 1 gram tablet 1 g PO AC & HS Qty: 120 RF: 5 ipratropium-albuterol 0.5 mg-3 mg(2.5 mg base)/3 mL solution for nebulization 3 ml IH QID PRN (Reason: shortness of breath) Qty: 90 RF: 3 fluticasone propionate 50 mcg/actuation spray,suspension 1 spray NS daily prn Qty: 9.9 RF: 2 hydroxyzine HCl 25 mg tablet 50 mg PO BID Qty: 30 RF: 0 Refresh Plus 0.5 % Dropperette 1 drp OU Q4H WHILE AWAKE Qty: 30 RF: 0 ascorbic acid (vitamin C) [Vitamin C] 500 mg Tablet 500 mg PO BID Qty: 30 RF: 0 Bio-K plus 50 billion cell Capsule,Delayed Release(Dr/Ec) 1 cap PO DAILY Qty: 60 RF: 0 sennosides [Senokot] 8.6 mg tablet 8.6 mg PO PRN PRNRF: 0 Discontinued meclizine 25 mg tablet 25 mg PO TID PRN (Reason: dizziness) Qty: 30 RF: 1 No Action permethrin 5 % cream 1 applic topical .q 7 days Qty: 60 RF: 1 triamcinolone acetonide 0.025 % cream 1 applic topical BID Qty: 15 RF: 0 Discharge Instructions Instructions: Gastritis (DC), Hypokalemia (DC), Abuse of Alcohol (DC), Hypomagnesemia (DC) Additional Instructions: Take all medications as prescribed, DO NOT DRINK ALCOHOL WHILE TAKING LIBRIUM Take omeprazole twice a day Take carafate before every meal follow up with PCP in 1 week Resume home health PT Continue clear/soft diet and slowly advance to regular as tolerated Take zofran for nausea. Stand Alone Forms: Nursing Discharge Form Referrals: Lavelle Galindo [Primary Care Provider] - (PLease call Tuesday to make a follow up appointment.) Activity:: Activity as Tolerated Equipment/Supplies:: No Equipment Needed Diet:: Low Sodium Discharge Orders Discharge Orders: Discharge Order (Routine); Ordered 08/09/20 Ordered By: Pat Navarro DS: Summary Status at Discharge Functional status at discharge: uses cane/walker Overall status at discharge: patient is back to baseline Mental Status: mental status grossly normal Speech and Movement: speech and movement normal Mood: congruent mood Affect: normal affect Exam Const General: cooperative, comfortable and no acute distress Nutritional Appearance: obese Orientation: alert, awake and oriented x3 HENMT Head: normal to inspection and normocephalic Ears: hearing grossly normal bilaterally Neck Neck: normal visual inspection, full ROM and no JVD Carotids: normal carotid upstroke Lymphatic: no lymphadenopathy noted Chest Chest: normal inspection of the chest Resp Effort & Inspection: normal respiratory effort and able to speak in complete sentences Auscultation: clear to auscultation bilaterally Cardio Jugular venous pressure: no JVD Rate: regular rate Rhythm: regular rhythm Heart Sounds: S1 normal and S2 normal GI Palpation: soft and no hepatosplenomegaly Auscultation: normal bowel sounds General: deferred Skin General skin exam: other (scratches) Neuro General: patient alert, patient awake and patient oriented x3 Speech: speech normal Extrem General: normal to inspection, full ROM and no clubbing, cyanosis or edema Psych Mental Status: mental status grossly normal Speech and Movement: speech and movement normal Mood: congruent mood Affect: normal affect DS: Data Vitals/I&O Vitals and I&O: Vital Signs Temperature 37.4 C 08/09/20 14:01 Temperature Source Tympanic 08/09/20 14:01 Pulse 86 08/09/20 14:01 Pulse Rhythm Regular 08/09/20 07:50 Pulse 124 H 08/08/20 19:31 Respiratory Rate 18 08/09/20 14:01 Respiratory Effort 08/09/20 07:50 Respiratory Depth Normal 08/09/20 07:50 Respiratory Pattern Normal 08/09/20 07:50 Blood Pressure 145/83 H 08/09/20 14:01 Blood Pressure Mean 110 08/08/20 19:30 Blood Pressure Position Supine 08/08/20 14:40 Pulse Oximetry 99 08/09/20 14:01 Oxygen Delivery Method Room Air 08/09/20 14:01 Oxygen Flow Rate 0 08/09/20 14:01 Pain Level 5 08/09/20 14:01 Comment 08/08/20 23:10 Intake & Output 08/08/20 08/09/20 08/09/20 23:59 11:59 23:59 Intake Total 2858.747 / 2858.747 968.75 / 968.75 Balance 2858.747 / 2858.747 968.75 / 968.75 Weight 65.2 kg Intake: IV 2858.747 / 2858.747 968.75 / 968.75 Other: Urine Color Yellow Urine Appearance Clear Comment incontinent of a very large amount of urine full bed change Emesis Description Retching Voiding Methods Incontinent Data Completed and Pending Labs on day of discharge: Labs from last 24 hours 08/09/20 08/09/20 08/08/20 06:45 06:45 20:25 WBC 4.58 RBC 3.87 L Hgb 11.7 Hct 35.7 L MCV 92.2 MCH 30.2 MCHC 32.8 RDW 13.7 Plt Count 124 L MPV 10.2 Immature Gran % Neutrophils % Lymphocytes % Monocytes % Eosinophils % Basophils % Nucleated RBC % Absolute Neutrophils Absolute Lymphocytes Absolute Monocytes Absolute Eosinophils Absolute Basophils Sodium 141 Potassium 3.1 L Chloride 104 Carbon Dioxide 25.7 Anion Gap 11.3 H BUN 13 D Creatinine 1.01 Estimated GFR/1.73 m2 53.58 Glucose 105 D Calcium 8.7 Magnesium 1.7 L Total Bilirubin AST ALT Alkaline Phosphatase Troponin I Total Protein Albumin Lipase Ethyl Alcohol SARS-CoV-2 (PCR) Pending Nasopharyn COVID-19 PCR Pending Ref Test Perform Site Pending 08/08/20 08/08/20 16:15 16:15 WBC 5.67 RBC 4.16 Hgb 12.8 Hct 37.9 MCV 91.1 MCH 30.8 MCHC 33.8 RDW 13.6 Plt Count 149 MPV 9.5 Immature Gran % 0.4 Neutrophils % 92.3 Lymphocytes % 3.7 Monocytes % 3.4 Eosinophils % 0.0 Basophils % 0.2 Nucleated RBC % 0 Absolute Neutrophils 5.24 Absolute Lymphocytes 0.21 L Absolute Monocytes 0.19 Absolute Eosinophils 0.00 Absolute Basophils 0.01 Sodium 138 Potassium 3.4 L Chloride 96 L Carbon Dioxide 27.8 Anion Gap 14.2 H BUN 22 H Creatinine 1.28 H Estimated GFR/1.73 m2 40.76 Glucose 232 H Calcium 10.3 H Magnesium 1.3 L Total Bilirubin 2.5 H AST 48 H ALT 47 Alkaline Phosphatase 119 H Troponin I < 0.05 Total Protein 8.0 Albumin 4.2 Lipase 45 Ethyl Alcohol 3.0 SARS-CoV-2 (PCR) Nasopharyn COVID-19 PCR Ref Test Perform Site [facility] Medical History Adjustment disorder with depressed mood AMBER (acute kidney injury) Alcohol abuse Alcoholic gastritis without bleeding Alcoholic ketosis Allergic rhinitis Anemia (12/20/16) Back pain, chronic Calcific tendinitis of left shoulder CAP (community acquired pneumonia) Cataract (11/07/15) Cervical radicular pain neck pain and DJD [facility] 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) pls refrain from alcohol Chronic alcoholism she will not stop drinking unless she checks with me, so that we can help her avert withdrawal I do not think she is capable on her own--she would need placement to achieve required goal of 3 months of sobriety Chronic diarrhea Closed displaced fracture of proximal phalanx of right index finger with routine healing (06/03/17) Closed right humeral fracture Contusion of left little finger Corneal ulcer, right (~08/23/18) 08/23/18; [facility] Dehydration Depression Diarrhea Discharge planning issues DVT prophylaxis Elev transaminase/LDH due to alcohol Epigastric abdominal pain Fall as cause of accidental injury at home as place of occurrence Genital herpes simplex recurrent gential; suppressive Valtrex GERD (gastroesophageal reflux disease) GI bleed (12/20/16) Head contusion Headache History of alcohol abuse Humerus fracture (09/12/19) Right Hyperlipidemia Hypertension Incidental lung nodule, greater than or equal to 8mm 1cm, spiculated, stable for many years, recommend f/u in 6 mo Macrocytosis (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 Multiple rib fractures 03/11/19 [facility] Nausea and vomiting in adult Non-cardiac chest pain (09/21/16) [facility] 09/21/16 NEGATIVE MP Osteoarthritis Osteopenia Palliative care patient (03/21/17) Pancreatitis, alcoholic, acute Peripheral edema Pleural effusion on left 03/11/19 [facility] Presacral mass (~09/15/18) 09/15/[address] [facility] Right rib fracture Sacral mass Sciatica right, epidural injuections [facility] Tendinitis of left rotator cuff Tubular adenoma of colon (01/28/17) Urinary incontinence 01/24/13 urethral suspension and sling at [facility] (bladder suspension 1991) UTI (urinary tract infection) 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 Bladder repair. Ligation of fallopian tube Repair bladder injury, simple Family History Mother No problems noted. Father , DROWNED at age 50. No problems noted. Sister Personal history of malignant neoplasm MELANOMA Sister No problems noted. Grandfather Personal history of malignant neoplasm STOMACH Grandfather Personal history of malignant neoplasm PROSTATE Grandmother Heart disease CA Acute ill-defined cerebrovascular disease Grandmother Personal history of malignant neoplasm UTERINE Aunt , CA Heart disease CA Aunt , CA Heart disease Brother No problems noted. Social History Smoking/Tobacco Use Status: Former Tobacco Use Quit Date: 08/05/20 Smoking risk assessment performed?: Yes Alcohol Intake: current Alcohol Intake frequency: 3 or more drinks per day Alcohol type: hard liquor Drug use: Never Substance use type: does not use Current gender identity: female Do you feel safe at home: Yes Do you feel safe in your relationship?: Yes
--- NOTE | 2020-08-09 14:54 | PDOC.CMDIS ---
- If Service Date Differs Date of service: 08/09/20 Time of Service: 14:54 LACE Index Scoring Tool - Questions: Length of Stay (in days): 1 Acuity (Admit via E.D.?): Yes E.D. Visits: 20 - Answers: Total Score: 8 Risk of Readmission: Low Risk Care Management Discharge Reason for Hospitalization: Vomiting Discharge Plan: Julia is being dischared home today with resumption of home health PT. She will be transported home via private car through [facility] coordinated by CM. Julia vasquez was controlled and she was able to tolerate a diet before discharge. Patient/Family Education Needs: Discharge education, limitations and follow up plan of care per nursing. Services Needed at Discharge: Home Health Care Services, Physical Therapy, Transportation
[2020-08-09] MEDS: amLODIPine 10 MG TAB PO (15:04)
[2020-08-10 01:49] LABS: COVID-19 RT-PCR UVMMC Result Negative (Negative)
== END 2020-08-09 15:16 | disposition home health service (06) | DRG 392 ==
LOC: ER 20:37 → MS 21:17
PROVIDERS: Admitting Provider General Practice; Emergency Provider Emergency Medicine; PCP Family Medicine; Visit Provider General Practice
DX: R11.10 Vomiting, unspecified (principal); F10.239 Alcohol dependence with withdrawal, unspecified; K29.20 Alcoholic gastritis without bleeding; F43.21 Adjustment disorder with depressed mood; D64.9 Anemia, unspecified; G89.29 Other chronic pain; M54.9 Dorsalgia, unspecified; M54.12 Radiculopathy, cervical region; K52.9 Noninfective gastroenteritis and colitis, unspecified; K21.9 Gastro-esophageal reflux disease without esophagitis; M19.90 Unspecified osteoarthritis, unspecified site; Z87.891 Personal history of nicotine dependence
CPT/HCPCS: 36415; 80048; 80053; 83690; 85027; 93005; 96361; 96365; 96366; 96368; 96375; 96376; 99222; 99239; 99285; U0003; 80320; 83735; 84484; 85025; 93010; J2060; J2405

== ENCOUNTER 2020-09-01 13:40 | Emergency (ER) | payer OTHER, SELFPAY ==
[2020-09-01] VITALS (8 sets, daily range): BP systolic 135–152; BP diastolic 73–84; PULSE 97–103; RESP 20–25; TEMP 36.4–36.7; O2SAT 88–99
--- NOTE | 2020-09-01 14:23 | NUR.NOTE ---
pt unable to verify medications [facility] patient for verification of allergies and medications pt states she did not take any medications today states she drinks hard liquor whenever I can Nursing Note:
--- NOTE | 2020-09-01 14:30 | DI.CT_ITS ---
EXAM: CT HEAD CERVICAL SPINE WO CLINICAL HISTORY: fall while walking, h/o ETOH. TECHNIQUE: Imaging Protocol: Axial computed tomography images with coronal and sagittal reformatted images were created and reviewed COMPARISON: No exams were available for comparison FINDINGS: CT Head: Ventricles and Extra axial spaces: Normal in size and morphology for the patient's age. Hemorrhage: None. Cerebral parenchyma: There are areas of decreased attenuation in the white matter most consistent wit h chronic microvascular ischemic change. No acute territorial infarct. Midline shift: None. Brainstem/Cerebellum: Normal. Calvarium: Normal. Old stable nasal bone fractures. Visualized Paranasal sinuses/Mastoids: Clear. Soft Tissues: Small scalp hematoma posteriorly. No radiopaque foreign bodies. CT Cervical Spine: Bones: No acute fracture or subluxation. There is grade 1 anterolisthesis of C3 on C4 and C5 on C6. Moderate degenerative changes are present throughout the cervical spine. Soft Tissues: Unremarkable. Lung Apices: Scarring is seen in the lung apices bilaterally. IMPRESSION: 1. No acute intracranial process. 2. Small scalp hematoma posteriorly on the right. No radiopaque foreign bodies. 3. No acute fracture or subluxation in the cervical spine. RADIATION DOSE DELIVERED: Total DLP DATA REPOSITORY: All CT scans at this facility are submitted to the National Radiology Data Registry (NRDR) Dose Index Registry (DIR) with the [employer] (A[employer]). RADIATION OPTIMIZATION: All CT scans at this facility use at least one of these dose optimization te chniques: automated exposure control; mA and/or kV adjustment per patient size (includes targeted exa ms where dose is matched to clinical indication); or iterative reconstruction.
--- NOTE | 2020-09-01 14:38 | ED.GENADUL_ITS ---
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 sling [place] [facility] [place] (bladder suspension 1991) UTI (urinary tract infection) 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 Bladder repair. Ligation of fallopian tube Repair bladder injury, simple Family History Mother No problems noted. Father , DROWNED at age 50. No problems noted. Sister Personal history of malignant neoplasm MELANOMA Sister No problems noted. Grandfather Personal history of malignant neoplasm STOMACH Grandfather Personal history of malignant neoplasm PROSTATE Grandmother Heart disease [place] Acute ill-defined cerebrovascular disease Grandmother Personal history of malignant neoplasm UTERINE Aunt , [place] Heart disease [place] Aunt , [place] Heart disease Brother No problems noted. Social History Smoking/Tobacco Use Status: Former Tobacco Use Quit Date: 08/05/20 Smoking risk assessment performed?: Yes Alcohol Intake: current Alcohol Intake frequency: 3 or more drinks per day Alcohol type: hard liquor Drug use: Never Substance use type: does not use Current gender identity: female Do you feel safe at home: Yes Do you feel safe in your relationship?: Yes Exam <Megan Foster DO - Last Filed: 09/02/20 14:02> Const General: disheveled, ill appearing chronically and intoxicated appearing Orientation: alert, oriented to person and oriented to place [facility] Head: normal to inspection Ears: hearing grossly normal bilaterally and external ears normal General nose exam: external nose normal Face and sinus: normal facial exam Mouth: oral mucosae normal Teeth and gingiva: dentition normal Throat: posterior oropharynx normal Eyes General: appearance normal, both eyes and all related structures Eyelids: eyelids normal Pupils: PERRL EOM: EOM intact bilaterally Neck Neck: normal visual inspection Lymphatic: no lymphadenopathy noted Chest Chest: normal inspection of the chest Resp Effort & Inspection: normal respiratory effort and able to speak in complete sentences Auscultation: clear to auscultation bilaterally Cardio Rate: regular rate Rhythm: regular rhythm GI Inspection: normal to inspection Palpation: soft, not firm, no guarding, no hepatosplenomegaly, no masses and nontender Auscultation: normal bowel sounds Back/Spine/Pelvis Cervical Spine: No cervical spinal tenderness Thoracic/Lumbar Spine: thoracic and lumbar spine normal to inspection, No thoracic spinal tenderness and No lumbar spinal tenderness Pelvis: no pain with anterior-posterior compression Skin Lesions: lesion noted (Left upper back and left upper extremity, multiple small crusted papules) Neuro General: moves all extremities and other (Drowsy but arousable and able to answer questions) Cognition: normal cognition Speech: speech normal Extrem Other: Pain in bilateral shoulders with range of motion, chronic. No acute deformities noted. No pain with range of motion of hips bilaterally. Psych Appearance: disheveled Mental Status: mental status grossly normal Speech and Movement: speech and movement normal Thought Process: normal Course <Megan Foster DO - Last Filed: 09/02/20 14:02> Vital Signs Vital signs: Vital Signs Temperature 98.1 F 09/01/20 13:43 Pulse 99 H 09/01/20 13:43 Respiratory Rate 20 09/01/20 13:43 Blood Pressure 148/80 H 09/01/20 13:43 Pulse Oximetry 88 L 09/01/20 13:43 Temperature 98.1 F 09/01/20 13:43 Temperature Source Temporal Artery Scan 09/01/20 13:43 Pulse 97 H 09/01/20 14:20 Respiratory Rate 23 09/01/20 14:20 Respiratory Effort 09/01/20 14:03 Blood Pressure 143/83 H 09/01/20 14:20 Pulse Oximetry 96 09/01/20 14:20 Oxygen Delivery Method Nasal Cannula 09/01/20 14:20 Oxygen Flow Rate 2 09/01/20 14:20 Comment 09/01/20 13:43 Sign Out <Megan Foster DO - Last Filed: 09/02/20 14:02> Sign Out Data: Sign Out Comment: Follow-up on labs and imaging and final disposition. Patient will need a ride home if work-up negative and she remains intoxicated Last updated by Megan Foster DO at 09/01/20 15:40
--- NOTE | 2020-09-01 14:39 | DI.CT_ITS ---
EXAM: CT CHEST/ABD/PEL W CLINICAL HISTORY: s/p fall, r/o rib fx, abd trauma TECHNIQUE: Imaging Protocol: Axial computed tomography images with coronal and sagittal reformatted images were created and reviewed CONTRAST MATERIAL: Intravenous: Omnipaque 350 Contrast volume:100 mL Oral: No COMPARISON: CT CT CHEST/ABD/PEL W from 04/19/[address] CHEST/ABD/PEL W from 04/19/[address] CHEST WO from 05/08/[address] HEAD WO from 06/22/[address] THORACIC LUMBAR SPINE REC from 09/01/2020 FINDINGS: CHEST: Tracheobronchial tree: Patent where visualized. Mediastinum and Vilma: No dominant adenopathy or fluid collection. There is a hiatal hernia. Pulmonary parenchyma: There is stable scarring in the lungs. The right upper lobe pulmonary nodule is unchanged. No focal consolidating infiltrates. Pleura: No effusion or pneumothorax. Heart: Mild cardiomegaly. No coronary artery calcifications are seen. No pericardial effusion. Aorta: Thoracic aorta non-dilated. Atherosclerosis. Lymph nodes: Within normal limits. Bones:Bilateral old rib fractures.Degenerative changes in the spine. Soft tissues: Unremarkable. CT reconstructions of the thoracic spine: Degenerative changes are seen in the spine. No acute fractu re or subluxation. There is stable mild loss of height of the T6, T11 and T12 vertebral bodies. ABDOMEN: Liver: Diffuse decreased attenuation consistent with fatty infiltration. No measurable mass. Portal, Superior Mesenteric, and Splenic Veins: Unremarkable. Gallbladder and Biliary Tract: The gallbladder is contracted but otherwise unremarkable. No biliary d uctal dilatation. Pancreas: Normal density, no abnormal calcifications or inflammatory process. Spleen: Normal. Adrenals: No masses seen. Kidneys: Normal size, contour and axis. No radiodense stones or obstructive uropathy. Multiple bilate ral renal cysts. Abdominal Aorta: Abdominal portion non-dilated. Atherosclerosis. Bowel: No obstruction or bowel wall thickening. No evidence of appendicitis. Peritoneal Cavity: No ascites, collection or mesenteric inflammatory response. There is a stable pres acral mass. Lymph Nodes: Within normal limits. Bones: Old bilateral healed rib fractures. Degenerative changes in the spine. Soft Tissues: Unremarkable. PELVIS: Bladder: Symmetric distention, no gross wall thickening. Reproductive Organs: There is again seen a hypodense lesion of the left ovary with an associated calc ification. This is unchanged. Lymph Nodes: Within normal limits. Bones: No acute fracture or subluxation. CT reconstructions of the lumbar spine: No acute fracture or subluxation in the lumbar spine. Grade 1 pseudo spondylolisthesis of L4 on L5. Degenerative changes throughout the lumbar spine. IMPRESSION: 1. No acute abdominal or pelvic process. 2. Stable findings in the abdomen and pelvis as described above. 3. CT reconstruction of the lumbar and thoracic spine shows no acute fracture or subluxation. 4. No acute pulmonary process. RADIATION DOSE DELIVERED: Total DLP DATA REPOSITORY: All CT scans at this facility are submitted to the National Radiology Data Registry (NRDR) Dose Index Registry (DIR) with the [employer] (ACR). RADIATION OPTIMIZATION: All CT scans at this facility use at least one of these dose optimization te chniques: automated exposure control; mA and/or kV adjustment per patient size (includes targeted exa ms where dose is matched to clinical indication); or iterative reconstruction.
[2020-09-01] MEDS: Normal Saline Flush 10 ML SYR IVP (15:05)
[2020-09-01] MEDS: Normal Saline 500 ML IV ×2 (15:10→17:01)
--- NOTE | 2020-09-01 15:15 | RT.EKG_ITS ---
APPROVED REPORT Exam: Resting ECG Patient Location: E HR:100 bpm ECG Measurements Heart Rate 100 AXIS WI 200 P 59 QRSd 92 QRS -28 QT 367 T -1 QTc 474 Conclusion Sinus tachycardia...rate> 99 sinus tachycardia at 100, normal axis, T wave inversions lead III and aVF present on prior, no acute ischemic changes, nondiagnostic EKG
[2020-09-01 15:30] LABS: Abs Immature Grans 0.01 10^3/uL (0.0-0.06); Absolute Basophil Count 0.01 10^3/uL (0.0-0.2); Absolute Lymphocyte Count 0.83 10^3/uL (1.2-3.4); Absolute Monocyte Count 0.27 10^3/uL (0.1-0.8); Basophils % 0.3; HCT 32.9 % (36.0-46.0); HGB 10.5 g/dL (11.2-15.7); Immature Grans % 0.3; Lymphocytes % 22.3; MCH 31.8 pg (27.0-33.0); MCHC 31.9 % (32.0-36.0); MCV 99.7 fL (80-95); MPV 9.4 fL (8.0-11.0); Monocytes % 7.3; Neutrophils % 69.8; Nucleated RBC 0 %; Platelet Count 195 10^3/uL (130-400); RDW-SD 58.2 fL; WBC 3.72 10^3/uL (4.4-10.8)
[2020-09-01 15:41] LABS: ALT 46 U/L (14-59); AST 41 U/L (15-37); Alkaline Phosphatase 105 U/L (46-116); Anion Gap 10.4 mmol/L (3-11); BUN 12 mg/dL (7-18); Bilirubin, Total 0.4 mg/dL (0.2-1.0); CO2 24.6 mmol/L (21.0-32.0); CREATININE 0.97 mg/dL (0.55-1.02); Calcium 8.8 mg/dL (8.5-10.1); Chloride 111 mmol/L (98-107); ETHANOL BLOOD 201.4 mg/dL (<3); Estimated GFR 56.14 (mL/min/1.73m2); Glucose 110 mg/dL (74-106); Lipase 50 U/L (73-393); Magnesium 1.6 mg/dL (1.8-2.4); Potassium 3.3 mmol/L (3.5-5.1); Sodium 146 mmol/L (136-145); Total Protein 6.5 g/dL (6.4-8.2)
[2020-09-01 15:43] LABS: Troponin I < 0.05 ng/mL (<0.06)
[2020-09-01 15:44] LABS: PTT Activated 24.8 sec (21.0-27.5); Prothrombin Time 10.4 sec (9.3-11.0)
[2020-09-01] MEDS: Omnipaque 350 MG/ML 100 ML BTL IJ (16:25)
[2020-09-01] MEDS: Normal Saline - Diluent 50 ML VIAL IV (16:26)
[2020-09-01] MEDS: Potassium Chloride 20 MEQ TABCR 40 MEQ PO (17:00)
[2020-09-01] MEDS: MAGNESIUM SULFATE 1 GM/100 ML BAG IVPB (17:00)
--- NOTE | 2020-09-01 18:42 | DI.VRAD_ITS ---
PROCEDURE INFORMATION: Exam: CT Chest With Contrast; Diagnostic Exam date and time: 09/01/2020 15:50 Age: 75 years old Clinical indication: Injury or trauma; Fall; Generalized; Blunt trauma (contusions or hematomas) TECHNIQUE: Imaging protocol: Diagnostic computed tomography of the chest with intravenous contrast. COMPARISON: CT CHEST WO 05/08/2020 12:35 FINDINGS: Thyroid: A slightly heterogeneous thyroid gland is similar to prior and statistically benign. Follow-up as per institutional protocol. Lungs: Similar areas of scarring in the apices. Similar appearance of a 12 mm right apical nodular density which is mixed density. Follow-up may be indicated depending on length of stability. Follow-up as per institutional protocol. Similar moderate scattered subsegmental atelectasis and or scarring. Pleural space: No pneumothorax. No pleural effusion. Heart: Stable mild cardiomegaly. Mediastinal space: Small hiatal hernia. Aorta: Stable mild dilation of the ascending aorta measuring up to 38 mm in diameter. No dissection. Lymph nodes: No enlarged lymph nodes. Bones/joints: Multiple chronic rib fractures are again identified. No acute rib fractures are seen. Soft tissues: No suspicious lesions. IMPRESSION: 1. No acute findings. 2. Similar moderate scattered subsegmental atelectasis and or scarring. 3. Additional findings as described. PROCEDURE INFORMATION: Exam: CT Abdomen And Pelvis With Contrast Exam date and time: 09/01/2020 15:50 Age: 75 years old Clinical indication: Injury or trauma; Fall; Generalized; Blunt trauma (contusions or hematomas) TECHNIQUE: Imaging protocol: Computed tomography of the abdomen and pelvis with intravenous contrast. COMPARISON: CT CHEST WO 05/08/2020 12:35 FINDINGS: Mediastinal space: Small hiatal hernia. Liver: Fatty liver with no mass lesions. Gallbladder and bile ducts: No calcified stones. No ductal dilation. Pancreas: No ductal dilation. No masses. Spleen: No splenomegaly or focal lesions. Adrenal glands: Normal. No mass. Kidneys and ureters: Multi-cystic appearance of the kidneys. No obstruction bilaterally. Stomach and bowel: No obstruction. No mucosal thickening. Appendix: No evidence of appendicitis. Intraperitoneal space: No free air. No significant fluid collection. Vasculature: No abdominal aortic aneurysm. Lymph nodes: No significantly enlarged lymph nodes. Urinary bladder: Very minor smooth appearing thickening left aspect of the urinary bladder. Reproductive: Small coarse calcification in the left ovary associated with a 20 mm intermediate density structure. Bones/joints: No acute fracture. Soft tissues: Diastasis recti. Bilateral inguinal hernias containing fat. Other findings: Nodule or cluster of nodules in the right pelvis, 45 x 32 mm. No surrounding edema. IMPRESSION: 1. No acute findings. 2. Nodule or cluster of nodules in the right pelvis, 45 x 32 mm. Metastatic adenopathy can have this appearance and workup is advised. Unclear if this is relating to a small left ovarian lesion. Consider pelvic ultrasound when appropriate, or tissue sampling depending on the clinical scenario. 3. Additional findings as described. Dictated and Authenticated by: Yadira Hernandez MD. Ordering:KATE Guzman MD
--- NOTE | 2020-09-01 18:48 | DI.VRAD_ITS ---
PROCEDURE INFORMATION: Exam: CT Thoracic Spine Without Contrast Exam date and time: 09/01/2020 15:50 Age: 75 years old Clinical indication: Screening exam; Due to fall TECHNIQUE: Imaging protocol: Computed tomography images of the thoracic spine without contrast. COMPARISON: CT THORACIC LUMBAR SPINE WO 04/19/2020 15:59 FINDINGS: Vertebrae: Mild loss of height involving the T12, T11 and T6 vertebral bodies is stable compared to prior. No acute fracture or subluxation. No significant listhesis in the thoracic spine. Discs/Spinal canal/Neural foramina: No adria central canal or neural foraminal stenosis. Other bones/joints: Demineralization. IMPRESSION: Mild loss of height involving the T12, T11 and T6 vertebral bodies is stable compared to prior. No acute fracture or subluxation. PROCEDURE INFORMATION: Exam: CT Lumbar Spine Without Contrast Exam date and time: 09/01/2020 15:50 Age: 75 years old Clinical indication: Screening exam; Due to fall TECHNIQUE: Imaging protocol: Computed tomography images of the lumbar spine without contrast. COMPARISON: CT THORACIC LUMBAR SPINE WO 04/19/2020 15:59 FINDINGS: Vertebrae: Mild multilevel listhesis in the lumbar spine is stable in the setting of severe, chronic multilevel spondylosis. No acute fracture or subluxation. Mild lumbar levoscoliosis. There may be chronic deformities of the left L2 and L3 transverse processes. Generalized demineralization. Small scattered benign-appearing bone islands. Discs/Spinal canal/Neural foramina: Severe multilevel disc space narrowing. Multilevel significant central canal and neural foraminal stenosis similar to prior. IMPRESSION: Mild multilevel listhesis in the lumbar spine is stable in the setting of severe, chronic multilevel spondylosis. No acute fracture or subluxation. Dictated and Authenticated by: Yadira Hernandez MD. Ordering:KATE Guzman MD
[2020-09-01 18:51] LABS: Bilirubin Negative (Negative); Blood Negative (Negative); Clarity Sl Cloudy (Clear); Glucose Negative (Negative); Ketones Negative (Negative); Leukocyte Esterase Negative (Negative); Nitrite Positive (Negative); Specific Gravity 1.015 (1.005-1.025); Urobilinogen 0.2 EU/dL (Up TO 0.2); pH 5.5 (5-8)
--- NOTE | 2020-09-01 18:54 | DI.VRAD_ITS ---
PROCEDURE INFORMATION: Exam: CT Head Without Contrast Exam date and time: 09/01/2020 3:50 PM Age: 75 years old Clinical indication: Injury or trauma; Fall; Blunt trauma (contusions or hematomas) TECHNIQUE: Imaging protocol: Computed tomography of the head without contrast. COMPARISON: CT HEAD WO 06/22/2020 3:51 AM FINDINGS: Brain: Age-related involutional changes and chronic microvascular ischemic disease. No evidence for acute transcortical infarct. No mass effect or midline shift. No extra-axial collection. No acute intracranial hemorrhage. Basal cisterns are patent. Cerebral ventricles: No ventriculomegaly. Bones/joints: No acute calvarial fracture. Paranasal sinuses: Visualized sinuses are unremarkable. No fluid levels. Mastoid air cells: Visualized mastoid air cells are well aerated. Orbital cavity: Left cataract surgery. Soft tissues: Right parietal scalp swelling. No radiopaque foreign body. IMPRESSION: 1. Right parietal scalp swelling. No radiopaque foreign body. No acute calvarial fracture. 2. No evidence for acute transcortical infarct, acute intracranial hemorrhage, or mass effect. PROCEDURE INFORMATION: Exam: CT Cervical Spine Without Contrast Exam date and time: 09/01/2020 3:50 PM Age: 75 years old Clinical indication: Injury or trauma; Fall; Blunt trauma (contusions or hematomas) TECHNIQUE: Imaging protocol: Computed tomography images of the cervical spine without contrast. COMPARISON: CT HEAD WO 06/22/2020 3:51 AM FINDINGS: Bones/joints: No acute fracture or traumatic subluxation. The atlantooccipital and atlantoaxial articulations are intact. Occipital condyles are intact. Facet joint alignments are maintained. Chronic healed fracture of the right clavicle. Grade 1 anterolisthesis of C3 on C4 and C5 on C6. Discs/Spinal canal/Neural foramina: Age-related degenerative disc disease. Multilevel degenerative changes of the cervical spine. Prevertebral Space: No prevertebral soft tissue swelling. Lungs: Linear scarring involving both lung apices. Soft tissues: Unremarkable. IMPRESSION: No acute fracture or traumatic subluxation. Dictated and Authenticated by: Pelon Marx MD. Ordering:KATE Guzman MD
[2020-09-01 19:01] LABS: Bacteria Packed HPF (Negative); C & S Indicated? Yes; Casts 3-5 Hyaline LPF (Negative); Crystals Few Calcium Oxalate HPF (Negative); Epithelial Cells Few HPF (Negative); Mucus Negative (Negative); RBC 0-2 HPF (0-2)
[2020-09-01 19:18] LABS: *AMPHETAMINES SCREEN URINE Negative (Negative); *BARBITURATES SCREEN URINE Negative (Negative); *BENZODIAZEPINES SCREEN URINE POSITIVE (Negative); Cannabinoids THC Negative (Negative); Cocaine Screen,Urine Negative (Negative); METHADONE URINE SCREEN Negative (Negative); OPIATES URINE SCREEN Negative (Negative)
[2020-09-01 19:22] LABS: Tricyclic Antidepressants Negative (Negative)
[2020-09-01] MEDS: MacroBID 100 MG CAP PO (19:39)
== END 2020-09-01 19:44 | disposition home or self-care (01) ==
PROVIDERS: Physician Assistant; Emergency Provider Student in an Organized Health Care Education/Training Program; PCP Family Medicine
DX: E83.42 Hypomagnesemia (principal); N39.0 Urinary tract infection, site not specified; B96.20 Unspecified Escherichia coli [E. coli] as the cause of diseases classified elsewhere; E87.6 Hypokalemia; I10 Essential (primary) hypertension; F10.120 Alcohol abuse with intoxication, uncomplicated; Y90.7 Blood alcohol level of 200-239 mg/100 ml; W19.XXXA Unspecified fall, initial encounter; B86 Scabies; R91.1 Solitary pulmonary nodule
CPT/HCPCS: 36415; 74177; 80053; 80307; 83690; 87077; 93005; 96361; 96365; 99285; 70450; 71260; 72125; 80320; 81003; 81015; 83735; 84484; 85025; 85610; 85730; 87086; 87186; 93010; J3475; J3490

== ENCOUNTER 2020-10-22 11:52 | Inpatient (IN) | payer OTHER, SELFPAY ==
--- NOTE | 2020-10-22 12:05 | W.ED.GENAD ---
Discharge Plan Disposition Patient Disposition: [facility] INPATIENT Condition: Stable Discharge Details Clinical Impression: Suicidal ideation, Alcohol intoxication, Hypomagnesemia, Hypokalemia Admit Date/Time: 10/22/20 14:12 Admit Provider: Aydin Joy Attending Provider: Aydin Joy Primary Care Provider: Lavelle Galindo. ED Provider: Megan Foster Discharge Data Discharge Date/Time-TO BE ENTERED AT DEPARTURE: 10/22/20 15:28 Medical Decision Making 75-year-old female with a history of chronic alcohol abuse, frequent falls, well-known to the emergency department presents for suicidal ideation due to complaint of persistent scabies rash. Patient voiced to me that she wants to kill herself and will kill her all her animals first before I kill myself. She also stated that she is very frustrated with her scabies rash and it would not go away. She states she has no hot water at home to wash her bedding. Patient appears mildly intoxicated. Her diffuse rash appears like excoriations from her scratching. No cellulitis. Screening labs obtained. Alcohol level 179. Labs noted a potassium of 2.9 and magnesium of 1.5, will replete. As mental health will not evaluate until alcohol level 0, will plan to admit to the floor until sober. Patient has not yet given a urine sample. She has a history of chronic UTIs. Discussed with hospitalist who accepts patient for admission. HPI General Mode of arrival: EMS. Date/Time Provider Initiated Documentation: 10/22/20 11:55. Limitations to Documentation: no limitations. Information obtained by: patient. HPI Narrative: Patient is a 75-year-old female well-known to emergency department with a history of chronic alcohol abuse, history of frequent falls, and inability to care for herself at home presents for suicidal ideation. Patient's caregiver Armida stated that she called 911 after patient stated she wanted to kill herself. Caregiver stated that patient is very frustrated with having scabies which patient states she got staying at the [facility] recently. Caregiver stated that patient expressed frustration that her scabies will not go away and stated today that she wanted to kill herself. Patient also stated that she would kill her animals first and then kill herself. Patient is complaining of diffuse itching all over and states this is making her feel like she wants to kill herself. Caregiver stated that patient has been given to separate prescriptions for scabies but patient has not taken it properly. Patient also stated that she does not have hot water at home so she is unable to wash all of her bedding and clothing properly. Related Data Home Medications Medication Instructions Recorded Confirmed Refresh Plus 1 drp OU Q4H WHILE AWAKE #30 each 06/20/19 10/22/20 magnesium oxide 400 mg PO BID #180 cap 07/17/19 10/22/20 food supplemt, lactose-reduced 414 ml PO DAILY #88828 ml 08/24/19 10/22/20 dicyclomine 10 mg capsule 10 mg PO QID PRN #40 cap 11/06/19 10/22/20 sucralfate 1 gram tablet 1 g PO AC & HS #120 tab 11/06/19 10/22/20 ipratropium 0.5 mg-albuterol 3 mg 3 ml IH QID PRN #90 ml 01/04/20 10/22/20 (2.5 mg base)/3 mL nebulization soln fluticasone propionate 50 1 spray NS daily prn #9.9 ml 03/25/20 10/22/20 mcg/actuation nasal spray,suspension Bio-K plus 1 cap PO DAILY #60 cap 05/12/20 10/22/20 ascorbic acid (vitamin C) [Vitamin 500 mg PO BID #30 tab 05/12/20 10/22/20 C] celecoxib 100 mg capsule 100 mg PO BID #60 cap 06/13/20 10/22/20 lifitegrast 5 % eye drops in a 1 drp OPHTHALMIC (EYE) BID 08/05/20 10/22/20 dropperette sennosides [Senokot] 8.6 mg PO PRN PRN 08/08/20 10/22/20 chlordiazepoxide HCl 25 mg PO Q12H #7 cap 08/09/20 10/22/20 cholestyramine (with sugar) 4 gram 1 pwd PO BID #378 g 08/27/20 10/22/20 oral powder amlodipine 10 mg tablet 10 mg PO DAILY #90 tab 09/05/20 10/22/20 folic acid 1 mg tablet 1 mg PO DAILY #90 tab 09/05/20 10/22/20 gabapentin 300 mg capsule 300 mg PO BID #90 cap 09/05/20 10/22/20 hydrochlorothiazide 12.5 mg tablet 12.5 mg PO DAILY #90 tab 09/05/20 10/22/20 metoprolol tartrate 50 mg tablet 50 mg PO BID #180 tab 09/05/20 10/22/20 multivitamin 1 tab PO DAILY #90 tab 09/05/20 10/22/20 pantoprazole 40 mg tablet,delayed 40 mg PO DAILY #90 tab 09/05/20 10/22/20 release potassium chloride 10 mEq 10 meq PO DAILY #90 tab 09/05/20 10/22/20 tablet,extended release(part/cryst) thiamine HCl (vitamin B1) 100 mg 100 mg PO DAILY #90 tab 09/05/20 10/22/20 tablet venlafaxine 150 mg 150 mg PO DAILY #30 cap 09/05/20 10/22/20 capsule,extended release 24 hr venlafaxine 37.5 mg 37.5 mg PO DAILY #30 cap 09/05/20 10/22/20 capsule,extended release 24 hr doxepin 3 mg tablet 3 mg PO BID PRN #30 tab 10/15/20 10/22/20 hydroxyzine HCl 25 mg tablet 25 mg PO TID PRN #30 tab 10/17/20 10/22/20 cyclosporine [Restasis] 0.4 ml OU BID #10 ea 10/25/20 diphenhydramine HCl 25 mg PO Q4H PRN PRN #20 cap 10/25/20 hydrocortisone 0 g TOPICAL TID #1 applic 10/25/20 lanolin zdvwusg-qa-n.pet-ceres 0 g TOPICAL TID #1 unit 10/25/20 [Eucerin] Previous Rx's Medication Instructions Recorded Refresh Plus 1 drp OU Q4H WHILE AWAKE #30 each 06/20/19 magnesium oxide 400 mg PO BID #180 cap 07/17/19 food supplemt, lactose-reduced 414 ml PO DAILY #22644 ml 08/24/19 dicyclomine 10 mg capsule 10 mg PO QID PRN #40 cap 11/06/19 sucralfate 1 gram tablet 1 g PO AC & HS #120 tab 11/06/19 ipratropium 0.5 mg-albuterol 3 mg 3 ml IH QID PRN #90 ml 01/04/20 (2.5 mg base)/3 mL nebulization soln fluticasone propionate 50 1 spray NS daily prn #9.9 ml 03/25/20 mcg/actuation nasal spray,suspension Bio-K plus 1 cap PO DAILY #60 cap 05/12/20 ascorbic acid (vitamin C) [Vitamin 500 mg PO BID #30 tab 05/12/20 C] celecoxib 100 mg capsule 100 mg PO BID #60 cap 06/13/20 chlordiazepoxide HCl 25 mg PO Q12H #7 cap 08/09/20 cholestyramine (with sugar) 4 gram 1 pwd PO BID #378 g 08/27/20 oral powder amlodipine 10 mg tablet 10 mg PO DAILY #90 tab 09/05/20 folic acid 1 mg tablet 1 mg PO DAILY #90 tab 09/05/20 gabapentin 300 mg capsule 300 mg PO BID #90 cap 09/05/20 hydrochlorothiazide 12.5 mg tablet 12.5 mg PO DAILY #90 tab 09/05/20 metoprolol tartrate 50 mg tablet 50 mg PO BID #180 tab 09/05/20 multivitamin 1 tab PO DAILY #90 tab 09/05/20 pantoprazole 40 mg tablet,delayed 40 mg PO DAILY #90 tab 09/05/20 release potassium chloride 10 mEq 10 meq PO DAILY #90 tab 09/05/20 tablet,extended release(part/cryst) thiamine HCl (vitamin B1) 100 mg 100 mg PO DAILY #90 tab 09/05/20 tablet venlafaxine 150 mg 150 mg PO DAILY #30 cap 09/05/20 capsule,extended release 24 hr venlafaxine 37.5 mg 37.5 mg PO DAILY #30 cap 09/05/20 capsule,extended release 24 hr doxepin 3 mg tablet 3 mg PO BID PRN #30 tab 10/15/20 hydroxyzine HCl 25 mg tablet 25 mg PO TID PRN #30 tab 10/17/20 cyclosporine [Restasis] 0.4 ml OU BID #10 ea 10/25/20 diphenhydramine HCl 25 mg PO Q4H PRN PRN #20 cap 10/25/20 hydrocortisone 0 g TOPICAL TID #1 applic 10/25/20 lanolin ozkdjac-da-j.pet-ceres 0 g TOPICAL TID #1 unit 10/25/20 [Eucerin] Allergies Allergy/AdvReac Type Severity Reaction Status Date / Time Penicillins Allergy Mild Rash Verified 10/01/20 10:45 ramipril Allergy Unknown ITCHING Verified 10/01/20 10:45 meperidine [From Demerol] AdvReac Severe Nausea Verified 10/01/20 10:45 bupropion AdvReac Mild GI upset Verified 10/01/20 10:45 AMBER Inhibitors AdvReac Unknown COUGH Verified 10/01/20 10:45 alendronate sodium AdvReac Unknown GI Distress Verified 10/01/20 10:45 clarithromycin AdvReac Unknown intolerant Verified 10/01/20 10:45 paroxetine AdvReac Unknown Diarrhea Verified 10/01/20 10:45 General Stated Complaint: PsychEval JORDAN: 2 Review of Systems All systems reviewed & are unremarkable except as noted in HPI and below Constitutional Constitutional: Reports as per HPI, Denies chills and Denies fever(s) Eyes Eyes: Denies blurry vision ENT Ears, Nose, Mouth, and Throat: Denies dizziness, Denies sore throat and Denies throat swelling Cardiovascular Cardiovascular: Denies chest pain and Denies dyspnea Respiratory Respiratory: Denies cough and Denies dyspnea Gastrointestinal Gastrointestinal: Denies abdominal pain, Denies diarrhea and Denies vomiting Genitourinary Genitourinary: Denies hematuria and Denies dysuria Musculoskeletal Musculoskeletal: Denies back pain and Denies numbness Integumentary/Breasts Skin/Breast: Reports lesions and Reports rash Neurologic Neurologic: Denies dizziness, Denies localized weakness and Denies numbness Allergic/Immunologic Allergic/Immunologic: Denies throat swelling [facility] Medical History Adjustment disorder with depressed mood AMBER (acute kidney injury) Alcohol abuse Alcoholic gastritis without bleeding Alcoholic ketosis Allergic rhinitis Anemia (12/20/16) Back pain, chronic Calcific tendinitis of left shoulder CAP (community acquired pneumonia) Cataract (11/07/15) Cervical radicular pain neck pain and [facility] 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) pls refrain from alcohol Chronic alcoholism she will not stop drinking unless she checks with me, so that we can help her avert withdrawal I do not think she is capable on her own--she would need placement to achieve required goal of 3 months of sobriety Chronic diarrhea Closed displaced fracture of proximal phalanx of right index finger with routine healing (06/03/17) Closed right humeral fracture Contusion of left little finger Corneal ulcer, right (~08/23/18) 08/23/18; [facility] Dehydration Depression Diarrhea Discharge planning issues DVT prophylaxis Dystrophic nail Elev transaminase/LDH due to alcohol Epigastric abdominal pain Fall as cause of accidental injury at home as place of occurrence Genital herpes simplex recurrent gential; suppressive Valtrex GERD (gastroesophageal reflux disease) GI bleed (12/20/16) Head contusion Headache History of alcohol abuse Humerus fracture (09/12/19) Right Hyperlipidemia Hypertension Incidental lung nodule, greater than or equal to 8mm 1cm, spiculated, stable for many years, recommend f/u in 6 mo Macrocytosis (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 Multiple rib fractures 03/11/19 [facility] Nausea and vomiting in adult Non-cardiac chest pain (09/21/16) [facility] [place] 09/21/16 NEGATIVE MP Osteoarthritis Osteopenia Palliative care patient (03/21/17) Pancreatitis, alcoholic, acute Peripheral edema Pleural effusion on left 03/11/19 [facility] Presacral mass (~09/15/18) 09/15/18 [facility] Right rib fracture Sacral mass Sciatica right, epidural injuections [facility] Tendinitis of left rotator cuff Tubular adenoma of colon (01/28/17) Urinary incontinence 01/24/13 urethral suspension and sling at [facility] [place] (bladder suspension 1991) UTI (urinary tract infection) 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 Bladder repair. Ligation of fallopian tube Repair bladder injury, simple Family History Mother No problems noted. Father , DROWNED at age 50. No problems noted. Sister Personal history of malignant neoplasm MELANOMA Sister No problems noted. Grandfather Personal history of malignant neoplasm STOMACH Grandfather Personal history of malignant neoplasm PROSTATE Grandmother Heart disease [place] Acute ill-defined cerebrovascular disease Grandmother Personal history of malignant neoplasm UTERINE Aunt , [place] Heart disease [place] Aunt , [place] Heart disease Brother No problems noted. Social History Smoking/Tobacco Use Status: Former Tobacco Use Quit Date: 08/05/20 Smoking risk assessment performed?: Yes Alcohol Intake: current Alcohol Intake frequency: 3 or more drinks per day Alcohol type: hard liquor Drug use: Never Substance use type: does not use Current gender identity: female Do you feel safe at home: Yes Do you feel safe in your relationship?: Yes Exam Const General: cooperative, no acute distress and ill appearing chronically Orientation: alert, awake and oriented x3 HENMT Head: normal to inspection Face and sinus: normal facial exam Eyes General: appearance normal, both eyes and all related structures Pupils: PERRL EOM: EOM intact bilaterally Neck Neck: normal visual inspection and No submandibular swelling Lymphatic: no lymphadenopathy noted Chest Chest: normal inspection of the chest and no tenderness Resp Effort & Inspection: normal respiratory effort and able to speak in complete sentences Auscultation: clear to auscultation bilaterally Cardio Rate: regular rate Rhythm: regular rhythm GI Inspection: normal to inspection Palpation: soft, not firm, not rigid and nontender Auscultation: normal bowel sounds Back/Spine/Pelvis Thoracic/Lumbar Spine: thoracic and lumbar spine normal to inspection Pelvis: no pain with anterior-posterior compression Skin Lesions: lesion noted (Scattered papules and excoriations diffusely to arms, legs, torso.) Neuro General: patient alert, patient awake, patient oriented x3, moves all extremities and no meningeal signs Cognition: normal cognition Speech: speech normal Motor: muscle tone normal throughout Sensory Exam: no sensory deficits noted Extrem General: normal to inspection, full ROM, capillary refill normal, no calf tenderness bilaterally and no edema Psych Appearance: grossly normal Mental Status: mental status grossly normal Speech and Movement: speech and movement normal Affect: normal affect Course Vital Signs Vital signs: Respiratory Effort 10/22/20 12:03
[2020-10-22 12:49] LABS: Abs Immature Grans 0.01 10^3/uL (0.0-0.06); Absolute Basophil Count 0.02 10^3/uL (0.0-0.2); Absolute Lymphocyte Count 1.29 10^3/uL (1.2-3.4); Absolute Neutrophil Count 1.89 10^3/uL (1.2-6.7); Basophils % 0.6; HCT 35.9 % (36.0-46.0); HGB 11.9 g/dL (11.2-15.7); Immature Grans % 0.3; Lymphocytes % 36.8; MCH 33.8 pg (27.0-33.0); MCHC 33.1 % (32.0-36.0); Monocytes % 8.5; Neutrophils % 53.8; Nucleated RBC 0 %; Platelet Count 205 10^3/uL (130-400); RBC 3.52 10^6/uL (3.93-5.22); RDW 14.6 % (11.7-14.6); WBC 3.51 10^3/uL (4.4-10.8)
[2020-10-22] MEDS: diphenhydrAMINE 25 MG CAP 50 MG PO (13:00)
[2020-10-22] MEDS: predniSONE 20 MG TAB 60 MG PO (13:01)
[2020-10-22 13:03] LABS: ALT 59 U/L (14-59); AST 73 U/L (15-37); Alkaline Phosphatase 129 U/L (46-116); Anion Gap 10.7 mmol/L (3-11); BUN 12 mg/dL (7-18); Bilirubin, Total 0.7 mg/dL (0.2-1.0); CO2 24.3 mmol/L (21.0-32.0); Calcium 9.2 mg/dL (8.5-10.1); Chloride 106 mmol/L (98-107); ETHANOL BLOOD 179.4 mg/dL (<3); Glucose 162 mg/dL (74-106); Sodium 141 mmol/L (136-145); Total Protein 6.5 g/dL (6.4-8.2)
[2020-10-22 13:09] LABS: Potassium 2.9 mmol/L (3.5-5.1)
[2020-10-22] MEDS: Potassium Chloride 20 MEQ TABCR 40 MEQ PO (13:45)
[2020-10-22 13:50] LABS: Magnesium 1.5 mg/dL (1.8-2.4)
[2020-10-22 14:08] LABS: Bilirubin Negative (Negative); Blood Trace-intact (Negative); Clarity Cloudy (Clear); Glucose Negative (Negative); Ketones Negative (Negative); Leukocyte Esterase Small (Negative); Nitrite Positive (Negative); Specific Gravity 1.025 (1.005-1.025); Urobilinogen 0.2 EU/dL (Up TO 0.2)
[2020-10-22 14:17] LABS: Bacteria Packed HPF (Negative); WBC >50 HPF (0-5)
[2020-10-22 14:18] LABS: C & S Indicated? Yes
[2020-10-22 14:20] LABS: *AMPHETAMINES SCREEN URINE Negative (Negative); *BARBITURATES SCREEN URINE Negative (Negative); *BENZODIAZEPINES SCREEN URINE POSITIVE (Negative); Cannabinoids THC Negative (Negative); Cocaine Screen,Urine Negative (Negative); METHADONE URINE SCREEN Negative (Negative); OPIATES URINE SCREEN Negative (Negative)
[2020-10-22 14:25] LABS: Tricyclic Antidepressants Negative (Negative)
[2020-10-22] MEDS: MAGNESIUM SULFATE 1 GM/100 ML BAG IVPB (15:08)
[2020-10-22] MEDS: Normal Saline 500 ML IV (15:26)
[2020-10-22 15:53] VITALS: BP 151/94; PULSE 93; RESP 20; TEMP 37.3; O2SAT 92
[2020-10-22 15:53] LABS: Influenza A PCR Negative (Negative); Influenza B PCR Negative (Negative); RSV PCR Negative (Negative)
--- NOTE | 2020-10-22 15:57 | HPE_ITS ---
Date of service: 10/22/20 Time of Service: 15:58 Assessment and Plan Assessment and plan (1) Pruritus: Status: Acute Assessment and plan: Does not appear to be scabies; Ramos lamp eval negative. Scattered, individual lesions in areas that she can reach and scratch only. Prurigo Nodularis? Eucerin TID, 1% hydrocortison cream TID. IV diphenhydramine prn, Montelukast 10 mg nightly. Cont cholestyramine though has not been helpful for her itch. (2) Alcohol abuse: Status: Chronic Assessment and plan: CIWA protocol for monitoring. PRN Lorazepam for CIWA scoring as per protocol. Lorazepam 0.5 mg po now. MVI, folate and thiamine daily. (3) Hypomagnesemia: Status: Acute Assessment and plan: One gram Mg IVPB infused. Oral Mg oxide 400mg BID Monitor (4) Hypokalemia: Status: Resolved Assessment and plan: IV and po repletion initiated. Misha. (5) Anemia: Status: Chronic Assessment and plan: Multifactoral: Fe of 16 in 04/2020, Elevated MCV related to alcohol intake, likely bone marrow suppression as well d/t alcohol. Will recheck iron and if low give IV dose. Check B12. (6) Hypertension: Status: Chronic Assessment and plan: Cont amlodipine and metoprolol Monitor Qualifiers: Hypertension type: essential hypertension Qualified Code(s): I10 - Essential (primary) hypertension (7) Hyperlipidemia: Status: Chronic Assessment and plan: Check fasting lipid panel in AM Not on a statin. Is on cholestyramine. (8) Dry eye: Status: Acute Assessment and plan: On Xiidra at home. Restasis OU BID (9) Depression: Status: Chronic Assessment and plan: Cont Venlafaxine. Her SI statements have been made out of frustration over her pruritus. Will have mental health evaluate when sober. (10) GI bleed: Status: Acute Assessment and plan: History of GI bleed. Cont PPI and Carafate. Monitor for melena, hematochezia, declining H/H. History of Present Illness History of Present Illness Chief Complaint: Suicidal ideations, alcohol intoxication, diffuse itch Narrative: This is a 75 yo female with a h/o alcohol abuse, Falls resulting in fractures, HLD, HTN, depression, Wernicke encephalopathy, anemia. Her caregiver endorsed that the patient stated I'm going to right here, I could just kill myself and it would be fine. EMS reported the patient voiced suicidal ideations to her caregiver. She states that she is highly stressed by generalized pruritis; dxd with possible scabies. She denies any ROSS/SOA above her baseline. She endorses being more ambulatory recently; trying to improve her deconditioned state. No F/C, pustules, ulcerations. In the ED her Etoh level was elevated at 179.4. WBC count 3.51, Hgb 11.9, MCV 102, platelets 205, Na 141, K 2.9, BUN 12, Creatinine 1.0, Magnesium 1.5, Bilirubin 0.7, AST 73, ALT 59. Review of Systems All systems reviewed & are unremarkable except as noted in HPI and below PFSH Medical History Adjustment disorder with depressed mood AMBER (acute kidney injury) Alcohol abuse Alcoholic gastritis without bleeding Alcoholic ketosis Allergic rhinitis Anemia (12/20/16) Back pain, chronic Calcific tendinitis of left shoulder CAP (community acquired pneumonia) Cataract (11/07/15) Cervical radicular pain neck pain and DJD [facility] 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) pls refrain from alcohol Chronic alcoholism she will not stop drinking unless she checks with me, so that we can help her avert withdrawal I do not think she is capable on her own--she would need placement to achieve required goal of 3 months of sobriety Chronic diarrhea Closed displaced fracture of proximal phalanx of right index finger with routine healing (06/03/17) Closed right humeral fracture Contusion of left little finger Corneal ulcer, right (~08/23/18) 08/23/18; [facility] Dehydration Depression Diarrhea Discharge planning issues DVT prophylaxis Dystrophic nail Elev transaminase/LDH due to alcohol Epigastric abdominal pain Fall as cause of accidental injury at home as place of occurrence Genital herpes simplex recurrent gential; suppressive Valtrex GERD (gastroesophageal reflux disease) GI bleed (12/20/16) Head contusion Headache History of alcohol abuse Humerus fracture (09/12/19) Right Hyperlipidemia Hypertension Incidental lung nodule, greater than or equal to 8mm 1cm, spiculated, stable for many years, recommend f/u in 6 mo Macrocytosis (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 Multiple rib fractures 03/11/19 [facility] Nausea and vomiting in adult Non-cardiac chest pain (09/21/16) [facility] 09/21/16 NEGATIVE MP Osteoarthritis Osteopenia Palliative care patient (03/21/17) Pancreatitis, alcoholic, acute Peripheral edema Pleural effusion on left 03/11/19 [facility] Presacral mass (~09/15/18) 09/15/18 [facility] Right rib fracture Sacral mass Sciatica right, epidural injuections [facility] Tendinitis of left rotator cuff Tubular adenoma of colon (01/28/17) Urinary incontinence 01/24/13 urethral suspension and sling at [facility] (bladder suspension 1991) UTI (urinary tract infection) 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 Bladder repair. Ligation of fallopian tube Repair bladder injury, simple Family History Mother No problems noted. Father , DROWNED at age 50. No problems noted. Sister Personal history of malignant neoplasm MELANOMA Sister No problems noted. Grandfather Personal history of malignant neoplasm STOMACH Grandfather Personal history of malignant neoplasm PROSTATE Grandmother Heart disease [place] Acute ill-defined cerebrovascular disease Grandmother Personal history of malignant neoplasm UTERINE Aunt , [place] Heart disease [place] Aunt , [place] Heart disease Brother No problems noted. Social History Smoking/Tobacco Use Status: Former Tobacco Use Quit Date: 08/05/20 Smoking risk assessment performed?: Yes Alcohol Intake: current Alcohol Intake frequency: 3 or more drinks per day Alcohol type: hard liquor Drug use: Never Substance use type: does not use Current gender identity: female Do you feel safe at home: Yes Do you feel safe in your relationship?: Yes Meds Home Medications and Allergies Home Medications Medication Instructions Recorded Confirmed Type Refresh Plus 1 drp OU Q4H WHILE AWAKE #30 each 06/20/19 10/22/20 Rx magnesium oxide 400 mg PO BID #180 cap 07/17/19 10/22/20 Rx food supplemt, lactose-reduced 414 ml PO DAILY #69402 ml 08/24/19 10/22/20 Rx dicyclomine 10 mg capsule 10 mg PO QID PRN #40 cap 11/06/19 10/22/20 Rx sucralfate 1 gram tablet 1 g PO AC & HS #120 tab 11/06/19 10/22/20 Rx ipratropium 0.5 mg-albuterol 3 mg 3 ml IH QID PRN #90 ml 01/04/20 10/22/20 Rx (2.5 mg base)/3 mL nebulization soln fluticasone propionate 50 1 spray NS daily prn #9.9 ml 03/25/20 10/22/20 Rx mcg/actuation nasal spray,suspension Bio-K plus 1 cap PO DAILY #60 cap 05/12/20 10/22/20 Rx ascorbic acid (vitamin C) [Vitamin 500 mg PO BID #30 tab 05/12/20 10/22/20 Rx C] celecoxib 100 mg capsule 100 mg PO BID #60 cap 06/13/20 10/22/20 Rx triamcinolone acetonide 0.025 % 1 applic TOPICAL BID #15 g 07/17/20 10/22/20 Rx topical cream lifitegrast 5 % eye drops in a 1 drp OPHTHALMIC (EYE) BID 08/05/20 10/22/20 History dropperette sennosides [Senokot] 8.6 mg PO PRN PRN 08/08/20 10/22/20 History chlordiazepoxide HCl 25 mg PO Q12H #7 cap 08/09/20 10/22/20 Rx cholestyramine (with sugar) 4 gram 1 pwd PO BID #378 g 08/27/20 10/22/20 Rx oral powder nitrofurantoin monohyd/m-cryst 100 mg PO BID #9 cap 09/01/20 10/22/20 Rx [Macrobid] amlodipine 10 mg tablet 10 mg PO DAILY #90 tab 09/05/20 10/22/20 Rx folic acid 1 mg tablet 1 mg PO DAILY #90 tab 09/05/20 10/22/20 Rx gabapentin 300 mg capsule 300 mg PO BID #90 cap 09/05/20 10/22/20 Rx hydrochlorothiazide 12.5 mg tablet 12.5 mg PO DAILY #90 tab 09/05/20 10/22/20 Rx metoprolol tartrate 50 mg tablet 50 mg PO BID #180 tab 09/05/20 10/22/20 Rx multivitamin 1 tab PO DAILY #90 tab 09/05/20 10/22/20 Rx pantoprazole 40 mg tablet,delayed 40 mg PO DAILY #90 tab 09/05/20 10/22/20 Rx release potassium chloride 10 mEq 10 meq PO DAILY #90 tab 09/05/20 10/22/20 Rx tablet,extended release(part/cryst) thiamine HCl (vitamin B1) 100 mg 100 mg PO DAILY #90 tab 09/05/20 10/22/20 Rx tablet venlafaxine 150 mg 150 mg PO DAILY #30 cap 09/05/20 10/22/20 Rx capsule,extended release 24 hr venlafaxine 37.5 mg 37.5 mg PO DAILY #30 cap 09/05/20 10/22/20 Rx capsule,extended release 24 hr permethrin 5 % topical cream 1 applic TOPICAL .q 7 days #60 g 10/10/20 10/22/20 Rx doxepin 3 mg tablet 3 mg PO BID PRN #30 tab 10/15/20 10/22/20 Rx hydroxyzine HCl 25 mg tablet 25 mg PO TID PRN #30 tab 10/17/20 10/22/20 Rx ondansetron 4 mg disintegrating 4 mg PO Q8H PRN #10 tab 10/21/20 10/22/20 Rx tablet Allergies Allergy/AdvReac Type Severity Reaction Status Date / Time Penicillins Allergy Mild Rash Verified 10/01/20 10:45 ramipril Allergy Unknown ITCHING Verified 10/01/20 10:45 meperidine [From Demerol] AdvReac Severe Nausea Verified 10/01/20 10:45 bupropion AdvReac Mild GI upset Verified 10/01/20 10:45 AMBER Inhibitors AdvReac Unknown COUGH Verified 10/01/20 10:45 alendronate sodium AdvReac Unknown GI Distress Verified 10/01/20 10:45 clarithromycin AdvReac Unknown intolerant Verified 10/01/20 10:45 paroxetine AdvReac Unknown Diarrhea Verified 10/01/20 10:45 Exam Const General: cooperative and anxious Nutritional Appearance: overweight Orientation: alert and oriented x3 HENMT Head: normocephalic and atraumatic Eyes Sclera: sclerae normal Pupils: PERRL Resp Effort & Inspection: normal respiratory effort and able to speak in complete sentences Auscultation: clear to auscultation bilaterally and diminished lung sounds Cardio Jugular venous pressure: no JVD Rate: regular rate Rhythm: regular rhythm Heart Sounds: S1 normal and S2 normal GI Palpation: soft and nontender Auscultation: normal bowel sounds Skin Lesions: lesion noted (scattered exoriated lesions on erythematous base; arms upper/lower back/abd) Extrem General: no pedal edema Psych Appearance: grossly normal Speech and Movement: speech and movement normal Mood: angry Affect: irritable affect Results Labs Result diagrams: 10/22/20 12:45 10/22/20 12:45 Labs: Laboratory Results - last 24 hr 10/22/20 10/22/20 10/22/20 12:45 12:45 12:45 WBC 3.51 L RBC 3.52 L Hgb 11.9 Hct 35.9 L MCV 102.0 H MCH 33.8 H MCHC 33.1 RDW 14.6 Plt Count 205 MPV 9.0 Immature Gran % 0.3 Neutrophils % 53.8 Lymphocytes % 36.8 Monocytes % 8.5 Eosinophils % 0.0 Basophils % 0.6 Nucleated RBC % 0 Absolute Neutrophils 1.89 Absolute Lymphocytes 1.29 Absolute Monocytes 0.30 Absolute Eosinophils 0.00 Absolute Basophils 0.02 Sodium 141 Potassium 2.9 L Chloride 106 Carbon Dioxide 24.3 Anion Gap 10.7 BUN 12 Creatinine 1.0 Estimated GFR/1.73 m2 54.20 Glucose 162 H Calcium 9.2 Magnesium 1.5 L Total Bilirubin 0.7 AST 73 H ALT 59 Alkaline Phosphatase 129 H Total Protein 6.5 Albumin 3.0 L Urine Color Urine Clarity Urine pH Ur Specific [place] Urine Protein Urine Ketones Urine Blood Urine Nitrite Urine Bilirubin Urine Urobilinogen Ur Leukocyte Esterase Urine RBC Urine WBC Ur Epithelial Cells Urine Crystals Urine Bacteria Urine Mucus Ur Culture Indicated? Urine Glucose Urine Opiates Screen Urine Methadone Screen Ur Barbiturates Screen Ur Tricyclics Screen Ur Amphetamines Screen U Benzodiazepines Scrn Urine Cocaine Screen Ur THC Screen Ethyl Alcohol 179.4 COVID-19 Source 10/22/20 10/22/20 10/22/20 14:01 14:01 15:03 WBC RBC Hgb Hct MCV MCH MCHC RDW Plt Count MPV Immature Gran % Neutrophils % Lymphocytes % Monocytes % Eosinophils % Basophils % Nucleated RBC % Absolute Neutrophils Absolute Lymphocytes Absolute Monocytes Absolute Eosinophils Absolute Basophils Sodium Potassium Chloride Carbon Dioxide Anion Gap BUN Creatinine Estimated GFR/1.73 m2 Glucose Calcium Magnesium Total Bilirubin AST ALT Alkaline Phosphatase Total Protein Albumin Urine Color Yellow Urine Clarity Cloudy Urine pH 6.0 Ur Specific [place] 1.025 Urine Protein 100 H Urine Ketones Negative Urine Blood Trace-intact H Urine Nitrite Positive H Urine Bilirubin Negative Urine Urobilinogen 0.2 Ur Leukocyte Esterase Small H Urine RBC Not Applicable Urine WBC >50 H Ur Epithelial Cells Not Applicable Urine Crystals Not Applicable Urine Bacteria Packed Urine Mucus Not Applicable Ur Culture Indicated? Yes Urine Glucose Negative Urine Opiates Screen Negative Urine Methadone Screen Negative Ur Barbiturates Screen Negative Ur Tricyclics Screen Negative Ur Amphetamines Screen Negative U Benzodiazepines Scrn Positive A Urine Cocaine Screen Negative Ur THC Screen Negative Ethyl Alcohol COVID-19 Source Nasopharyx Last Vital Signs Temp 37.3 C 10/22/20 15:53 Pulse 93 H 10/22/20 15:53 Resp 20 10/22/20 15:53 BP 151/94 H 10/22/20 15:53 Pulse Ox 92 10/22/20 15:53 COVID-19 Screening Have you, or household traveled for leisure in last 14 days?: No Had IN PERSON contact w/suspected or confirmed C-19 person: No
[2020-10-22 16:00] VITALS: BP 151/94; PULSE 93; RESP 20; TEMP 37.3; O2SAT 92
[2020-10-22 16:16] LABS: COVID-19 PCR Negative (Negative)
[2020-10-22] MEDS: POTASSIUM CHLORIDE/0.9% NACL 1,000 ML 100 MEQ IV (16:25)
[2020-10-22] MEDS: LORazepam 0.5 MG TAB PO (16:26)
[2020-10-22] MEDS: diphenhydrAMINE 25 MG CAP PO ×2 (16:27→19:53)
[2020-10-22] MEDS: Sucralfate 1 GM TAB PO ×2 (16:28→22:11)
[2020-10-22] MEDS: Heparin 5,000 UNITS/ML VIAL 5000 UNITS SC (16:46)
--- NOTE | 2020-10-22 16:49 | CMSP_ITS ---
- If Service Date Differs Date of service: 10/22/20 Time of Service: 16:49 Care Management Safety Plan Status: Voluntary Leticia is a 75 year old woman admitted on 10/22/20 after verbalizing suicidal thoughts. Leticia has a long history of alcohol abuse and has been in and out of the hospital, ED and area SNFs many, many times in the past few years. Reportedly, Leticia has a pruritic rash that has been bothering her for quite some time. This morning she allegedly told her caregiver that she would kill herself secondary to frustration with the itching. CM will respond to assess patient after patient has been medically cleared and assessed by screener. If screener deems patient meets criteria for psychiatric stabilization CM will facilitate interdepartmental huddle with [facility] screener for safety planning considerations and meet with patient to review [facility] policy and safety plan, establish individual wishes for treatment and maintain patient rights. In the interim; please note safety plan below to guide patient care while awaiting further assessment in the ED. SAFETY PLAN: 1. Will remain on suicide precautions and in paper clothes. 2. Will remain in room under direct supervision of one-on-one staff at all times provided by [employer], [employer] corporate associate attorney. 3. May have paper cups, plates, finger foods as well as a cardboard spoon with which to eat meals. 4. Follow [facility] Management of the Admitted Behavioral Health Patient policy. 5. Comfort bath system only. 6. No personal belongings 7. No visitors. 8. Phone contact - none at this time 9. Due to VOLUNTARY status, if patient wishes to leave [facility], staff will contact [facility] Crisis Screener ([phone]) and On-Call Process Design Chemical Engineer ([phone]) as soon as possible. In the event of elopement, notify [facility] Police ([phone]). If deemed appropriate for inpatient psychiatric care, safety plan will be established with patient, and care team, to adhere to patient goals, identify restrictions based on behavioral status, address nutrition, and determine allowed personal belongings, tools for hygiene and personal care. As well plan will determine level of activity including ambulation, level of supervision, visitors, and determine privileges based on level of acuity, behaviors and level of engagement by patient.
[2020-10-22 17:47] LABS: Iron 56 ug/dL (50-170); Total Iron Binding Capacity 315 ug/dL (250-450); Transferrin Sat 18 % (15-50)
[2020-10-22 18:14] LABS: Vitamin B12 406 pg/mL (193-986)
[2020-10-22] MEDS: LORazepam 1 MG TAB PO/SL ×2 (19:52→22:16)
[2020-10-22] MEDS: Mylanta Suspension 30 ML CUP PO (19:53)
[2020-10-22] MEDS: Hydrocortisone 1% CR 30 GM TUBE TP (19:53)
[2020-10-22] MEDS: Magnesium Oxide 400 MG TAB PO (22:11)
[2020-10-22] MEDS: Metoprolol 50 MG TAB PO (22:11)
[2020-10-22] MEDS: Cholestyramine/Aspartame PKT 1 EACH PO (22:11)
[2020-10-22] MEDS: Montelukast 10 MG TAB PO (22:11)
[2020-10-22] MEDS: Gabapentin 300 MG CAP PO (22:12)
[2020-10-23] VITALS (7 sets, daily range): BP systolic 143–181; BP diastolic 80–98; PULSE 64–76; RESP 17–19; TEMP 36.4–37.1; O2SAT 93–98
[2020-10-23] MEDS: diphenhydrAMINE 25 MG CAP PO ×3 (00:07→21:48)
[2020-10-23] MEDS: Acetaminophen 325 MG TAB 650 MG PO ×2 (00:07→08:26)
[2020-10-23] MEDS: Heparin 5,000 UNITS/ML VIAL 5000 UNITS SC ×4 (00:08→23:40)
[2020-10-23] MEDS: POTASSIUM CHLORIDE/0.9% NACL 1,000 ML 100 MEQ IV (02:02)
[2020-10-23 07:01] LABS: Abs Immature Grans 0.01 10^3/uL (0.0-0.06); Absolute Basophil Count 0.02 10^3/uL (0.0-0.2); Absolute Lymphocyte Count 0.78 10^3/uL (1.2-3.4); Absolute Monocyte Count 0.55 10^3/uL (0.1-0.8); Absolute Neutrophil Count 3.51 10^3/uL (1.2-6.7); Basophils % 0.4; HCT 34.3 % (36.0-46.0); HGB 11.5 g/dL (11.2-15.7); Immature Grans % 0.2; MCH 33.2 pg (27.0-33.0); MCHC 33.5 % (32.0-36.0); MCV 99.1 fL (80-95); MPV 9.6 fL (8.0-11.0); Monocytes % 11.3; Neutrophils % 72.1; Nucleated RBC 0 %; Platelet Count 212 10^3/uL (130-400); RBC 3.46 10^6/uL (3.93-5.22); RDW 13.9 % (11.7-14.6); RDW-SD 51.1 fL; WBC 4.87 10^3/uL (4.4-10.8)
[2020-10-23 07:29] LABS: ALT 87 U/L (14-59); AST 131 U/L (15-37); Albumin 3.1 g/dL (3.4-5.0); Alkaline Phosphatase 138 U/L (46-116); Anion Gap 11.2 mmol/L (3-11); BUN 12 mg/dL (7-18); Bilirubin, Total 1.2 mg/dL (0.2-1.0); CO2 23.8 mmol/L (21.0-32.0); CREATININE 0.9 mg/dL (0.55-1.02); Calcium 8.8 mg/dL (8.5-10.1); Calculated LDL 115 mg/dL (<100); Chloride 100 mmol/L (98-107); Cholesterol 211 mg/dL (<200); Glucose 116 mg/dL (74-106); HDL Cholesterol 73 mg/dL (40-60); Magnesium 1.6 mg/dL (1.8-2.4); Potassium 4.6 mmol/L (3.5-5.1); Sodium 135 mmol/L (136-145); Total Protein 6.6 g/dL (6.4-8.2); Triglyceride 119 mg/dL (<150)
[2020-10-23] MEDS: hydroCHLOROthiazide 12.5 MG TAB PO (08:25)
[2020-10-23] MEDS: Hydrocortisone 1% CR 30 GM TUBE TP ×3 (08:25→21:25)
[2020-10-23] MEDS: Venlafaxine 150 MG CAPCR PO (08:25)
[2020-10-23] MEDS: Cholestyramine/Aspartame PKT 1 EACH PO (08:25)
[2020-10-23] MEDS: LORazepam 1 MG TAB PO/SL ×3 (08:26→23:38)
[2020-10-23] MEDS: Metoprolol 50 MG TAB PO ×2 (08:26→21:24)
[2020-10-23] MEDS: Folic Acid 1 MG TAB PO (08:26)
[2020-10-23] MEDS: Venlafaxine 37.5 MG CAPCR PO (08:26)
[2020-10-23] MEDS: Potassium Chloride 10 MEQ TABCR PO (08:27)
[2020-10-23] MEDS: Sucralfate 1 GM TAB PO ×4 (08:27→21:25)
[2020-10-23] MEDS: amLODIPine 10 MG TAB PO (08:27)
[2020-10-23] MEDS: Multivitamin TAB 1 TAB PO (08:27)
[2020-10-23] MEDS: Thiamine 100 MG TAB PO (08:27)
[2020-10-23] MEDS: Gabapentin 300 MG CAP PO ×2 (08:27→21:25)
[2020-10-23] MEDS: Pantoprazole 40 MG TABCR PO (08:27)
--- NOTE | 2020-10-23 09:25 | PDOC.CMIN ---
- If Service Date Differs Date of service: 10/23/20 Time of Service: 09:25 Care Management Initial Assess REASON FOR HOSPITALIZATION:: Suicidal ideation and alcohol intoxication. PAST MEDICAL HISTORY/PAST SURGICAL HISTORY:: Medical History: Adjustment disorder with depressed mood, AMBER (acute kidney injury), Alcohol abuse, Alcoholic gastritis without bleeding,. Alcoholic ketosis, Allergic rhinitis, Anemia (12/20/16), Back pain, chronic,. Calcific tendinitis of left shoulder, CAP (community acquired pneumonia),. Cataract (11/07/15), Cervical radicular pain - neck pain and DJD - [facility], 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) - pls refrain from alcohol, Chronic alcoholism - she will not stop drinking unless she checks with me, so that we can help her avert withdrawal - I do not think she is capable on her own--she would need placement to achieve required goal of 3 months of sobriety, Chronic diarrhea, Closed displaced fracture of proximal phalanx of right index finger with routine healing (06/03/17), Closed right humeral fracture, Contusion of left little finger, Corneal ulcer, right (~08/23/18) - 08/23/18; [facility], Dehydration, Depression, Discharge planning issues, DVT prophylaxis, Dystrophic nail, Elev transaminase/LDH due to alcohol, Epigastric abdominal pain, Fall as cause of accidental injury at home as place of occurrence, Genital herpes simplex - recurrent gential; suppressive Valtrex, GERD (gastroesophageal reflux disease), GI bleed (12/20/16), Head contusion, Headache, History of alcohol abuse, Humerus fracture (09/12/19) - Right, Hyperlipidemia, Hypertension, Incidental lung nodule, greater than or equal to 8mm - 1cm, spiculated, stable for many years, recommend f/u in 6 mo, Macrocytosis (09/26/14) - due to alcohol, Multiple rib fractures - 03/11/19 [facility] , Nausea and vomiting in adult, Non-cardiac chest pain (09/21/16) - [facility] 09/21/16 NEGATIVE MP, Osteoarthritis, Osteopenia, Palliative care patient (03/21/17), Pancreatitis, alcoholic, acute, Peripheral edema, Pleural effusion on left - 03/11/19 [facility] , Presacral mass (~09/15/18) - 09/15/18 [facility], Right rib fracture, Sacral mass, Sciatica - right, epidural injuections - [facility], Tendinitis of left rotator cuff, Tubular adenoma of colon (01/28/17), Urinary incontinence - 01/24/13 urethral suspension and sling at [facility] - (bladder suspension 1991), UTI (urinary tract infection), Vision loss of right eye - 08/17/18;[facility], and Wernicke encephalopathy. Surgical History: Bladder Surgery - suspension, Colonoscopy - MAC (01/28/17), EGD - MAC (12/20/16), History of bilateral ligation of fallopian tubes, History of Surgical Procedure - a. Bladder repair, Ligation of fallopian tube, and Repair bladder injury, simple. PREVIOUS FUNCTIONAL STATUS/SOCIAL/FAMILY SUPPORTS:: Leticia lives alone with her dog and 4 cats in her own home in [place], [place]. She reports she has a sister and her sister is the one caring for her animals while she is in the hospital. Leticia also has a caregiver, Armida, who comes in four times a week for two hours a day. Leticia shares her son Seth is her DPOA. CURRENT FUNCTIONAL STATUS:: Leticia is laying in bed watching television when CM comes to meet with her. She is pleasant and easily engages in conversation. She shares frustration with her caregiver and her son and states they treat me like I don't have a brain. She reports they do not listen to her and pay no attention to what she wants and doesn't want. ADVANCE DIRECTIVES:: DNR/COLST on file; son Bennie Ingram is Health Care Agent. Has patient been provided with info about the portal/API?: Yes Did the patient sign up for the portal?: Yes (Previously enrolled) CODE STATUS:: DNR/DNI INSURANCE COVERAGE / FINANCIAL ISSUES:: [employer] [facility] (commercial Medicare replacement plan) and Financial asst 85. CURRENT HOME/COMMUNITY SERVICES/EQUIPMENT:: Leticia owns a walker, a cane, and a toilet seat riser. She has a caregiver four days a week for two hours per day. PRIMARY CARE PHYSICIAN:: Lavelle Galindo MD. POTENTIAL DISCHARGE NEEDS:: Follow up with PCP. PATIENT/FAMILY EDUCATION NEEDS:: Discharge instructions, limitations, follow up plan including Ask Me Three and self management. ANTICIPATED BARRIERS TO DISCHARGE:: No anticipated barriers to discharge at this time. TRANSPORTATION:: Via precinct commanding officer. PLAN:: Leticia was assessed by [facility] crisis screener, and found to meet criteria for a voluntary psychiatric hospitalization. Leticia will remain at [facility] while [facility] continues to seek a psych bed for her. Transport will be done via precinct commanding officer, once placement has been secured. CM will continue to follow.
[2020-10-23] MEDS: Fluticasone NASAL SPRAY 16 GM BTL NS (10:18)
[2020-10-23] MEDS: Magnesium Oxide 400 MG TAB PO ×2 (10:18→21:23)
--- NOTE | 2020-10-23 10:33 | W.PM.PROGNOT ---
Date of Service Date of service: 10/23/20 Time of Service: 08:12 Assessment and Plan Assessment and plan (1) Alcohol intoxication: Status: Acute Assessment and plan: CIWA monitoring. Repeating blood alcohol level to assist in determination if she is capable of an appropriate mental health eval. Daily MVI, thiamine, folate. Qualifiers: Complication of substance-induced condition: uncomplicated Qualified Code(s): F10.920 - Alcohol use, unspecified with intoxication, uncomplicated (2) Hypomagnesemia: Status: Acute Assessment and plan: Magnesium 1.5 on admission; now 1.6 after 1g mag sulfate IV and oral Mag oxide 400mg BID initiated yesterday. Cont oral replacement. (3) Hypokalemia: Status: Acute Assessment and plan: Now corrected; K+ 4.6 S/P K+ in IV fluid infusion and po K+. Stop IV fluids and oral K+. (4) Dry eye: Status: Acute Assessment and plan: Chronic. Cont Restasis. (5) Anemia: Status: Chronic Assessment and plan: Hgb stable. Iron and B12 normal. (6) Hypertension: Status: Chronic Assessment and plan: BP elevated. Currently on amlodipine 10mg daily, HCTZ 12.5 mg daily, Metoprolol 50mg BID. Hesitant to increase BB d/t HR; 60-70's this AM. Cont to monitor. PO clonidine for SBP > 180 prn. Qualifiers: Hypertension type: essential hypertension Qualified Code(s): I10 - Essential (primary) hypertension (7) Depression: Status: Chronic Assessment and plan: Cont Venlafaxine. Her SI verbalization likely d/t frustration with her now chronic pruritis. Mental Health to eval. Cont Venlafaxine. (8) Pruritus: Status: Acute Assessment and plan: Eucerin TID, 1% hydrocortison cream TID. IV diphenhydramine prn, Montelukast 10 mg nightly. Stop cheolestyramine; initiated in 07/2020 and apparently hasn't been effective. Outpt skin bx recommended. Subjective Subjective Patient reports: no new complaints and afebrile; denies shortness of breath Interval history since last seen: She states she is trying to avoid scratching. Was awake intertermittently through much of the night due to itch. Eating breakfast. No N/V/abd pain. Exam Const General: cooperative, no acute distress and other (fatigued appearing.) Nutritional Appearance: average body habitus Orientation: awake, oriented to person and oriented to place Eyes Sclera: sclerae normal Pupils: PERRL Resp Effort & Inspection: normal respiratory effort Auscultation: clear to auscultation bilaterally Cardio Rate: regular rate Rhythm: regular rhythm Heart Sounds: S1 normal and S2 normal GI Palpation: soft and nontender Skin Lesions: other (scattered excoriated lesions with erythematous base.) Extrem General: no pedal edema and no calf tenderness Psych Appearance: disheveled Speech and Movement: speech and movement normal Affect: blunted Objective Last Vital Signs Temp 37.0 C 10/23/20 07:20 Pulse 64 10/23/20 07:20 Resp 17 10/23/20 07:20 BP 180/80 H 10/23/20 07:42 Pulse Ox 97 10/23/20 07:20 Laboratory Results - last 24 hr 10/22/20 10/22/20 10/22/20 12:42 12:42 12:45 WBC RBC Hgb Hct MCV MCH MCHC RDW Plt Count MPV Immature Gran % Neutrophils % Lymphocytes % Monocytes % Eosinophils % Basophils % Nucleated RBC % Absolute Neutrophils Absolute Lymphocytes Absolute Monocytes Absolute Eosinophils Absolute Basophils Sodium 141 Potassium 2.9 L Chloride 106 Carbon Dioxide 24.3 Anion Gap 10.7 BUN 12 Creatinine 1.0 Estimated GFR/1.73 m2 54.20 Glucose 162 H Calcium 9.2 Magnesium Iron 56 TIBC 315 Transferrin % Sat 18 Total Bilirubin 0.7 AST 73 H ALT 59 Alkaline Phosphatase 129 H Total Protein 6.5 Albumin 3.0 L Triglycerides Total Cholesterol LDL Cholesterol, Calc HDL Cholesterol Vitamin B12 406 TSH Free T4 Urine Color Urine Clarity Urine pH Ur Specific [place] Urine Protein Urine Ketones Urine Blood Urine Nitrite Urine Bilirubin Urine Urobilinogen Ur Leukocyte Esterase Urine RBC Urine WBC Ur Epithelial Cells Urine Crystals Urine Bacteria Urine Mucus Ur Culture Indicated? Urine Glucose Urine Opiates Screen Urine Methadone Screen Ur Barbiturates Screen Ur Tricyclics Screen Ur Amphetamines Screen U Benzodiazepines Scrn Urine Cocaine Screen Ur THC Screen Ethyl Alcohol 179.4 COVID-19 Source SARS-CoV-2 (PCR) Influenza Type A (PCR) Influenza Type B (PCR) RSV (PCR) 10/22/20 10/22/20 10/22/20 12:45 12:45 14:01 WBC 3.51 L RBC 3.52 L Hgb 11.9 Hct 35.9 L MCV 102.0 H MCH 33.8 H MCHC 33.1 RDW 14.6 Plt Count 205 MPV 9.0 Immature Gran % 0.3 Neutrophils % 53.8 Lymphocytes % 36.8 Monocytes % 8.5 Eosinophils % 0.0 Basophils % 0.6 Nucleated RBC % 0 Absolute Neutrophils 1.89 Absolute Lymphocytes 1.29 Absolute Monocytes 0.30 Absolute Eosinophils 0.00 Absolute Basophils 0.02 Sodium Potassium Chloride Carbon Dioxide Anion Gap BUN Creatinine Estimated GFR/1.73 m2 Glucose Calcium Magnesium 1.5 L Iron TIBC Transferrin % Sat Total Bilirubin AST ALT Alkaline Phosphatase Total Protein Albumin Triglycerides Total Cholesterol LDL Cholesterol, Calc HDL Cholesterol Vitamin B12 TSH Free T4 Urine Color Urine Clarity Urine pH Ur Specific [place] Urine Protein Urine Ketones Urine Blood Urine Nitrite Urine Bilirubin Urine Urobilinogen Ur Leukocyte Esterase Urine RBC Urine WBC Ur Epithelial Cells Urine Crystals Urine Bacteria Urine Mucus Ur Culture Indicated? Urine Glucose Urine Opiates Screen Negative Urine Methadone Screen Negative Ur Barbiturates Screen Negative Ur Tricyclics Screen Negative Ur Amphetamines Screen Negative U Benzodiazepines Scrn Positive A Urine Cocaine Screen Negative Ur THC Screen Negative Ethyl Alcohol COVID-19 Source SARS-CoV-2 (PCR) Influenza Type A (PCR) Influenza Type B (PCR) RSV (PCR) 10/22/20 10/22/20 10/23/20 14:01 15:03 06:32 WBC RBC Hgb Hct MCV MCH MCHC RDW Plt Count MPV Immature Gran % Neutrophils % Lymphocytes % Monocytes % Eosinophils % Basophils % Nucleated RBC % Absolute Neutrophils Absolute Lymphocytes Absolute Monocytes Absolute Eosinophils Absolute Basophils Sodium 135 L Potassium 4.6 D Chloride 100 Carbon Dioxide 23.8 Anion Gap 11.2 H BUN 12 Creatinine 0.9 Estimated GFR/1.73 m2 >= 60.00 Glucose 116 H Calcium 8.8 Magnesium 1.6 L Iron TIBC Transferrin % Sat Total Bilirubin 1.2 H AST 131 H ALT 87 H Alkaline Phosphatase 138 H Total Protein 6.6 Albumin 3.1 L Triglycerides 119 Total Cholesterol 211 H LDL Cholesterol, Calc 115 H HDL Cholesterol 73 Vitamin B12 TSH 0.20 L Free T4 1.00 Urine Color Yellow Urine Clarity Cloudy Urine pH 6.0 Ur Specific [place] 1.025 Urine Protein 100 H Urine Ketones Negative Urine Blood Trace-intact H Urine Nitrite Positive H Urine Bilirubin Negative Urine Urobilinogen 0.2 Ur Leukocyte Esterase Small H Urine RBC Not Applicable Urine WBC >50 H Ur Epithelial Cells Not Applicable Urine Crystals Not Applicable Urine Bacteria Packed Urine Mucus Not Applicable Ur Culture Indicated? Yes Urine Glucose Negative Urine Opiates Screen Urine Methadone Screen Ur Barbiturates Screen Ur Tricyclics Screen Ur Amphetamines Screen U Benzodiazepines Scrn Urine Cocaine Screen Ur THC Screen Ethyl Alcohol COVID-19 Source Nasopharyx SARS-CoV-2 (PCR) Negative Influenza Type A (PCR) Negative Influenza Type B (PCR) Negative RSV (PCR) Negative 10/23/20 06:32 WBC 4.87 D RBC 3.46 L Hgb 11.5 Hct 34.3 L MCV 99.1 H MCH 33.2 H MCHC 33.5 RDW 13.9 Plt Count 212 MPV 9.6 Immature Gran % 0.2 Neutrophils % 72.1 Lymphocytes % 16.0 Monocytes % 11.3 Eosinophils % 0.0 Basophils % 0.4 Nucleated RBC % 0 Absolute Neutrophils 3.51 Absolute Lymphocytes 0.78 L Absolute Monocytes 0.55 Absolute Eosinophils 0.00 Absolute Basophils 0.02 Sodium Potassium Chloride Carbon Dioxide Anion Gap BUN Creatinine Estimated GFR/1.73 m2 Glucose Calcium Magnesium Iron TIBC Transferrin % Sat Total Bilirubin AST ALT Alkaline Phosphatase Total Protein Albumin Triglycerides Total Cholesterol LDL Cholesterol, Calc HDL Cholesterol Vitamin B12 TSH Free T4 Urine Color Urine Clarity Urine pH Ur Specific [place] Urine Protein Urine Ketones Urine Blood Urine Nitrite Urine Bilirubin Urine Urobilinogen Ur Leukocyte Esterase Urine RBC Urine WBC Ur Epithelial Cells Urine Crystals Urine Bacteria Urine Mucus Ur Culture Indicated? Urine Glucose Urine Opiates Screen Urine Methadone Screen Ur Barbiturates Screen Ur Tricyclics Screen Ur Amphetamines Screen U Benzodiazepines Scrn Urine Cocaine Screen Ur THC Screen Ethyl Alcohol COVID-19 Source SARS-CoV-2 (PCR) Influenza Type A (PCR) Influenza Type B (PCR) RSV (PCR)
[2020-10-23] MEDS: Normal Saline Flush 10 ML SYR IVP (11:41)
--- NOTE | 2020-10-23 12:00 | RT.EKG_ITS ---
APPROVED REPORT Exam: Resting ECG Patient Location: I HR:67 bpm ECG Measurements Heart Rate 67 AXIS LA 180 P 42 QRSd 93 QRS -29 QT 447 T -6 QTc 473 Conclusion Sinus rhythm...normal P axis, V-rate 60- 99 Normal Electrocardiogram
[2020-10-23 12:25] LABS: ETHANOL BLOOD < 3.0 mg/dL (<3)
[2020-10-23 13:08] LABS: Troponin I < 0.05 ng/mL (<0.06)
--- NOTE | 2020-10-23 14:10 | DI.RAD_ITS ---
EXAM: XR PORTABLE CHEST AP CLINICAL HISTORY: SOA, rales.. TECHNIQUE: 2D digital imaging was performed. COMPARISON: CR XR RIBS RT PA CHEST 3V from 04/25/2020 FINDINGS: Heart size is upper normal. The mediastinum is not widened. Lungs are clear. No infiltrates nor obvious pleural effusions. Multiple healed left-sided rib fractures are again noted. Deformities lateral aspect both clavicles again noted including what appears to be partial resection of the lateral aspect of the left clavicle. Fracture deformity of the lateral aspect of the opposite -right clavicle is noted. IMPRESSION: No acute pulmonary findings on this single AP portable view of the chest.Healed left-sided rib fractu res again noted. DATA REPOSITORY: RADIATION DOSE DELIVERED:
--- NOTE | 2020-10-23 16:04 | PHA.REVIEW ---
Pharmacy Admission Review - Admission Clinical Review (Last Updated 10/22/20 @ 16:21 by Aydin Joy MD) Suicidal ideation (Acute) Alcohol intoxication (Acute) Hypomagnesemia (Acute) Hypokalemia (Acute) GI bleed (Acute 12/20/16) Dry eye (Acute) Pruritus (Acute) Hypomagnesemia (Acute) Penicillins Allergy (Mild, Verified 10/01/20 10:45) Rash ramipril Allergy (Unknown, Verified 10/01/20 10:45) ITCHING meperidine [From Demerol] Adverse Reaction (Severe, Verified 10/01/20 10:45) Nausea bupropion Adverse Reaction (Mild, Verified 10/01/20 10:45) GI upset AMBER Inhibitors Adverse Reaction (Unknown, Verified 10/01/20 10:45) COUGH alendronate sodium Adverse Reaction (Unknown, Verified 10/01/20 10:45) GI Distress clarithromycin Adverse Reaction (Unknown, Verified 10/01/20 10:45) intolerant paroxetine Adverse Reaction (Unknown, Verified 10/01/20 10:45) Diarrhea Height 5 ft 1.02 in Weight 64.4 kg - Renal Dosing Renal Dosing: BUN 12 mg/dL (7-18) 10/23/20 06:32 Creatinine 0.9 mg/dL (0.55-1.02) 10/23/20 06:32 Medications needing adjustments: Reviewed List of meds needing interventions: eCrCl 45 ML/MIN - Anticoagulation Anticoagulation: Hgb 11.5 g/dL (11.2-15.7) 10/23/20 06:32 Hct 34.3 % (36.0-46.0) L 10/23/20 06:32 Plt Count 212 10^3/uL (130-400) 10/23/20 06:32 Creatinine 0.9 mg/dL (0.55-1.02) 10/23/20 06:32 DVT Prohphylaxis: Reviewed Medications: Heparin - Opiate Usage Evaluate Pain Scale/Pains Meds: N/A - Relevant Labs Sodium 135 mmol/L (136-145) L 10/23/20 06:32 Potassium 4.6 mmol/L (3.5-5.1) D 10/23/20 06:32 Chloride 100 mmol/L (98-107) 02/25/21 06:32 Magnesium 1.6 mg/dL (1.8-2.4) L 10/23/20 06:32 Electrolytes, C-Reactive P, ESR: Reviewed (mag being repleted orally) - DM Control DM Control: Glucose 116 mg/dL (74-106) H 10/23/20 06:32 Insulin Dosing: N/A - Heart Failure/SD Heart Failure/SD: Troponin I < 0.05 ng/mL (<0.06) 10/23/20 12:39 EF%, AMBER's, B-Blockers, Diuretics: N/A - BP Control BP Control: Blood Pressure 152/90 Blood Pressure 180/80 Blood Pressure 181/98 If elevated: Reviewed - Qtc Review If Elevated: N/A - IV to PO Switch IV Medications: Reviewed - Home Meds Home Med List reviewed: Reviewed Relevent Home Meds Not ordered & why?: ascorbic acid, bio-k, celecoxib, chlordiazepoxide (likely short taper), dicyclomine, doxepin, hydroxyzine (prn itch), permethrin (r/o'd), triamcinolone (acute rx, hydrocortisone ordered) - Current meds Current Medication Order Review: Reviewed
--- NOTE | 2020-10-23 17:58 | PDOC.CMSAFE ---
- If Service Date Differs Date of service: 10/23/20 Time of Service: 17:58 Care Management Safety Plan Status: Voluntary VOLUNTARY FOR INPATIENT PSYCHIATRIC STABILIZATION. Patient is appropriate in all interactions since arriving at [facility]; Pt has demonstrated appropriate coping and communication skills, has articulated his or her needs and concerns and is fully engaged during staff interactions. Safety plan has been established with patient, and care team, to adhere to patient goals, identify restrictions based on behavioral status, address nutrition, and determine allowed personal belongings, tools for hygiene and personal care. Determine level of activity including ambulation, level of supervision, visitors, and determine privileges based on behaviors and level of engagement by pt. SAFETY PLAN: 1. Will remain on suicide precautions and in paper clothes. 2. Will remain in room under direct supervision of one-on-one staff at all times provided by CPS[employer], ELA, OVERAGE SHORTAGE AND DAMAGE CLERK insurance investigator. 3. May have paper cups, plates, finger foods as well as a cardboard spoon with which to eat meals. 4. Follow [facility] Management of the Admitted Behavioral Health Patient policy. 5. Comfort bath system only. 6. No personal belongings 7. Visitors-No visitors at this time per [facility] Covid policy. 8. Activities: Television, coloring books, crayons, and other activities at nursing discretion. 9. Bathroom privileges: May use bathroom in room without supervision. 10. Phone: Permitted at RN discretion. 11. Due to VOLUNTARY status, if patient wishes to leave [facility], staff will contact [facility] Crisis Screener ([phone]) and On-Call Medical Consultant ([phone]) as soon as possible. In the event of elopement, notify [facility] Police ([phone]). Patient is currently voluntarily at [facility] and seeking inpatient admission when a bed becomes available. [facility] Frontline It Security Specialist will continue seeking placement. Please contact the Supervisor Fireworks Assembly Medical Consultant ([phone]) and [facility] It Security Specialist ([phone]) for any needed changes in the Safety Plan. Safety plan has been provided to interdepartmental care team.
--- NOTE | 2020-10-23 18:25 | PDOC.MHCN_ITS ---
Date of service: 10/23/20 Time of Service: 18:25 Mental Health Crisis Note Presenting Issue How did you arrive at the ED and why did you come: Pt arrived yesterday 10.22.2020 via ambulance after reporting she wanted to by suicide. Precipitating Factors Pt was medically cleared today and [facility] requested an evaluation. Pt endorsed suicidal ideation today when she met with this clinician. She did not show any signs of delusions. Disposition BEHAVIOR: Pt is cooperative but clearly depressed and having suicidal thoughts. She scored high risk for the PHQ9 and the CSSRS. EYE CONTACT: Pt's eye contact was avoiding and not engaged. MOOD: Pt's mood is depressed, hopeless, and helpless. AFFECT: Pt's affect is disconnected and depressed. APPETITE: Pt reported that her appetite is not good. SLEEP(trouble falling/staying asleep: Pt reported poor sleep and sleeping all day to avoid her symptoms of depression. Plan Pt reported that she is in crisis every day and she albert with this by sleeping. She reported she does not have any supports. Pt reported that she was trying self-care when she was able to walk and now she is not able to. When asked if there is anything worth living for she responded no way. Pt is agreeable to a voluntary admission today. She is not able to keep herself safe at this time and it is concerning that she lives independently with only a couple of hours a day where someone is in her home. She has no natural supports per her report and is reporting hopelessness and helplessness. Referrals were made to [facility] and [facility]. Signature Clinician's Name/Title: Gianna Mcneal MS, [facility] Emergency Services Clinician, [facility]
[2020-10-23] MEDS: Montelukast 10 MG TAB PO (21:24)
[2020-10-24] VITALS (7 sets, daily range): BP systolic 126–166; BP diastolic 72–83; PULSE 65–74; RESP 17–21; TEMP 36.5–37.1; O2SAT 93–97
[2020-10-24] MEDS: Acetaminophen 325 MG TAB 650 MG PO ×2 (04:49→14:49)
[2020-10-24] MEDS: Fluticasone NASAL SPRAY 16 GM BTL NS (08:09)
[2020-10-24] MEDS: Hydrocortisone 1% CR 30 GM TUBE TP ×2 (08:09→20:40)
[2020-10-24] MEDS: Gabapentin 300 MG CAP PO ×2 (08:10→20:40)
[2020-10-24] MEDS: Sucralfate 1 GM TAB PO ×4 (08:10→23:05)
[2020-10-24] MEDS: Venlafaxine 150 MG CAPCR PO (08:10)
[2020-10-24] MEDS: Venlafaxine 37.5 MG CAPCR PO (08:10)
[2020-10-24] MEDS: diphenhydrAMINE 25 MG CAP PO ×3 (08:10→23:05)
[2020-10-24] MEDS: hydroCHLOROthiazide 12.5 MG TAB PO (08:10)
[2020-10-24] MEDS: Thiamine 100 MG TAB PO (08:10)
[2020-10-24] MEDS: Multivitamin TAB 1 TAB PO (08:10)
[2020-10-24] MEDS: Heparin 5,000 UNITS/ML VIAL 5000 UNITS SC ×3 (08:11→23:06)
[2020-10-24] MEDS: Metoprolol 50 MG TAB PO ×2 (08:11→20:40)
[2020-10-24] MEDS: Pantoprazole 40 MG TABCR PO (08:11)
[2020-10-24] MEDS: amLODIPine 10 MG TAB PO (08:11)
[2020-10-24] MEDS: Folic Acid 1 MG TAB PO (08:11)
[2020-10-24] MEDS: Normal Saline 500 ML 100 ML IV (09:46)
[2020-10-24] MEDS: Magnesium Oxide 400 MG TAB PO ×2 (09:46→23:05)
[2020-10-24] MEDS: cefTRIAXone 1 GM/50 ML BAG IVPB (09:46)
[2020-10-24] MEDS: Cholestyramine/Aspartame PKT 1 EACH PO ×2 (09:46→19:06)
--- NOTE | 2020-10-24 11:23 | W.NUTRFU ---
Date of service: 10/24/20 Time of Service: 11:23 Nutritional Follow up NOTE: 75 year old female admitted with alcohol intoxication, hypomagnesemia, hypokalemia, anemia with long standing history of ETOH abuse, now with suicidal ideation. BMI wnl and stable x 3 months. Supplement with MVI, thiamine and folic acid for repletion. Following regular meal plan with excellent intake. Not considered at nutritional risk at this time. Time Spent in Nutritional Counseling and Treatment: 0
--- NOTE | 2020-10-24 11:31 | W.PM.PROGNOT ---
Date of Service Date of service: 10/24/20 Time of Service: 11:33 Assessment and Plan Assessment and plan (1) Suicidal ideation: Status: Acute Assessment and plan: H/O depression. Mental health has evaluated. Recommending in-patient psychiatric care (2) Alcohol abuse: Status: Acute Assessment and plan: Intoxicated on admission. Will schedule small dose of Ativan BID. Cont MVI, thiamine, folate (3) Pruritus: Status: Acute Assessment and plan: Cont Eucerin TID, 1% hydrocortison cream TID. IV diphenhydramine prn, Montelukast 10mg nightly. Restart cholestyramine BID. Outpt skin bx recommended. (4) Hypertension: Status: Chronic Assessment and plan: SBP 140-180's. Cont Metoprolol, HCTZ and amlodipine. Monitor. Qualifiers: Hypertension type: essential hypertension Qualified Code(s): I10 - Essential (primary) hypertension (5) UTI (urinary tract infection): Status: Acute Assessment and plan: She was on nitrofurantoin 100mg BID; she endorses taking for 2 days. Culture growing 2 gram neg rods and mixed gram positive mónica. Rocephin 1 gram IV daily. Monitor for culture results to adjust antibiotics as necessary. Qualifiers: Urinary tract infection type: acute cystitis Hematuria presence: without hematuria Qualified Code(s): N30.00 - Acute cystitis without hematuria Subjective Subjective Patient reports: no new complaints, tolerating a regular diet and afebrile; denies nausea, vomiting and shortness of breath Interval history since last seen: Voiding frequently. Exam Const General: cooperative and no acute distress Nutritional Appearance: overweight Orientation: awake, oriented to person and oriented to place Resp Effort & Inspection: normal respiratory effort Auscultation: rales bilaterally in the lower lung gatica Cardio Rate: regular rate Rhythm: regular rhythm Heart Sounds: S1 normal and S2 normal GI Palpation: soft and nontender Extrem General: no pedal edema and no calf tenderness Objective Last Vital Signs Temp 36.7 C 10/24/20 07:19 Pulse 73 10/24/20 07:19 Resp 17 10/24/20 07:19 BP 166/83 H 10/24/20 07:19 Pulse Ox 97 10/24/20 07:19 Laboratory Results - last 24 hr 10/23/20 10/23/20 06:32 12:39 Troponin I < 0.05 Ethyl Alcohol < 3.0
--- NOTE | 2020-10-24 18:35 | CMSP_ITS ---
- If Service Date Differs Date of service: 10/24/20 Time of Service: 18:35 Care Management Safety Plan Status: Voluntary VOLUNTARY FOR INPATIENT PSYCHIATRIC STABILIZATION. Patient is appropriate in all interactions since arriving at [facility]; Pt has demonstrated appropriate coping and communication skills, has articulated his or her needs and concerns and is fully engaged during staff interactions. Safety plan has been established with patient, and care team, to adhere to patient goals, identify restrictions based on behavioral status, address nutrition, and determine allowed personal belongings, tools for hygiene and personal care. Determine level of activity including ambulation, level of supervision, visitors, and determine privileges based on behaviors and level of engagement by pt. SAFETY PLAN: 1. Will remain on suicide precautions and in paper clothes. 2. Will remain in room under direct supervision of one-on-one staff at all times provided by CPSO, ELA, NETWORK ARCHITECT MANAGER home visitor. 3. May have paper cups, plates, finger foods as well as a cardboard spoon with which to eat meals. 4. Follow [facility] Management of the Admitted Behavioral Health Patient policy. 5. Comfort bath system only. 6. No personal belongings 7. Visitors-No visitors at this time per [facility] Covid policy. 8. Activities: Television, coloring books, crayons, and other activities at nursing discretion. 9. Bathroom privileges: May use bathroom in room without supervision. 10. Phone: Permitted at RN discretion. 11. Due to VOLUNTARY status, if patient wishes to leave [facility], staff will contact [facility] Crisis Screener ([phone]) and On-Call Focuser ([phone]) as soon as possible. In the event of elopement, notify [facility] Police ([phone]). Patient is currently voluntarily at [facility] and seeking inpatient admission when a bed becomes available. [facility] Frontline Quality Improvement Manager will continue seeking placement. Please contact the Loom Setter Focuser ([phone]) and [facility] C risis Worker ([phone]) for any needed changes in the Safety Plan. Safety plan has been provided to interdepartmental care team.
--- NOTE | 2020-10-24 18:35 | PDOC.CMSAFE ---
- If Service Date Differs Date of service: 10/24/20 Time of Service: 18:35 Care Management Safety Plan Status: Voluntary VOLUNTARY FOR INPATIENT PSYCHIATRIC STABILIZATION. Patient is appropriate in all interactions since arriving at [facility]; Pt has demonstrated appropriate coping and communication skills, has articulated his or her needs and concerns and is fully engaged during staff interactions. Safety plan has been established with patient, and care team, to adhere to patient goals, identify restrictions based on behavioral status, address nutrition, and determine allowed personal belongings, tools for hygiene and personal care. Determine level of activity including ambulation, level of supervision, visitors, and determine privileges based on behaviors and level of engagement by pt. SAFETY PLAN: 1. Will remain on suicide precautions and in paper clothes. 2. Will remain in room under direct supervision of one-on-one staff at all times provided by CPSO, ELA, DRAFTER ASSISTANT non destructive testing supervisor. 3. May have paper cups, plates, finger foods as well as a cardboard spoon with which to eat meals. 4. Follow [facility] Management of the Admitted Behavioral Health Patient policy. 5. Comfort bath system only. 6. No personal belongings 7. Visitors-No visitors at this time per [facility] Covid policy. 8. Activities: Television, coloring books, crayons, and other activities at nursing discretion. 9. Bathroom privileges: May use bathroom in room without supervision. 10. Phone: Permitted at RN discretion. 11. Due to VOLUNTARY status, if patient wishes to leave [facility], staff will contact [facility] Crisis Screener ([phone]) and On-Call Tree Climber ([phone]) as soon as possible. In the event of elopement, notify [facility] Police ([phone]). Patient is currently voluntarily at [facility] and seeking inpatient admission when a bed becomes available. [facility] Frontline Nike Athlete will continue seeking placement. Please contact the Spray Mixer Tree Climber ([phone]) and [facility] Nike Athlete ([phone]) for any needed changes in the Safety Plan. Safety plan has been provided to interdepartmental care team.
--- NOTE | 2020-10-24 18:46 | CMPROGNOTE_ITS ---
- If Service Date Differs Date of service: 10/24/20 Time of Service: 18:46 Care Management Progress Note S/O: Leticia was lying in bed when CM met with her. She reported that she is exhausted. She stated that she can repeat all of the commercials, and all of the political views. She reported that she feels that her family just wants her to , so they don't have to worry about her. She stated that she feels that things have been worse since the Covid pandemic hit, and for a year now she has been stuck in her home with no support. She stated that home health doesn't come anymore because her insurance won't cover it. Referrals were sent to all psychiatric facilities with the exception of [facility], as she prefers not to go there. She was tentatively offered a bed at [facility]) today, but a prior auth was required. CM sent her negative Covid result to , as requested. KAMLA Katz, obtained the PA after several hours on the phone with [facility]. Later, the provider was contacted by a medical officer psychiatry at , who stated that they could not take her today d/t her not being medically cleared. Leticia is being treated for a rash on her skin, but per provider, she is medically cleared, as this is being managed well with medication. CM will continue to seek placement, including discussing the medical clearance with when a provider is available. A: Leticia is a 75 year old female admitted to [facility] on 10/22/20 with SI, ETOH intoxication. P: Leticia was assessed again by KAMLA Katz crisis screener, and found to continue to meet criteria for a voluntary psychiatric hospitalization. Leticia will remain at [facility] while [facility] continues to seek a psych bed for her. Transport will be via [facility] vs ambulance, once placement has been secured. CM will continue to follow.
--- NOTE | 2020-10-24 19:07 | W.INMHPGNOTE ---
Date of service: 10/24/20 Time of Service: 19:07 Mental Health Crisis Note Presenting Issue How did you arrive at the ED and why did you come: Pt arrived on 10.22.2020 via ambulance after reporting she wanted to by suicide. Precipitating Factors Pt reported she still does not want to be here or anywhere. She has not decided on a plan but does not want to live. She is not showing any signs of delusions. Disposition BEHAVIOR: Pt is cooperative and engaged and appeared less agitated today and more open to sharing her feelings and thoughts. EYE CONTACT: Pt has improved eye contact in comparison to yesterday's assessment. MOOD: He mood appears depressed and hopeless. AFFECT: Her affect appears distracted some and withdrawn. APPETITE: Pt reported she is eating. SLEEP(trouble falling/staying asleep: Pt reported that she is sleeping. Plan Pt reported that she knows she is in crisis because she will stop caring for herself. She will be up all night and has a poor appetite. She tries to cope with this by watching TV. She denied having any natural supports and her professional ones are her primary physician and a therapist Gianna Green. She said she has not seen Gianna in awhile as Gianna's family member has been sick and she has been caring for them. She denied having any self-care things she does for herself and that the one thing worth living for is her animals. Pt is still accepting of an inpatient psychiatric bed to assist her in improving her mood. She has been accepted by [facility] however, late in the day and after getting a prior approval from her insurance she was refused by [facility] with beliefs that she is not medically cleared. Despite efforts by [facility] provider and this agency insisting that she is they would not take her. [facility] and [facility] will try again tomorrow. Signature Clinician's Name/Title: Gianna Mcneal MS, [facility] Emergency Services Clinician, [facility]
[2020-10-24] MEDS: Montelukast 10 MG TAB PO (20:41)
[2020-10-24] MEDS: LORazepam 0.5 MG TAB PO (23:05)
[2020-10-25] MEDS: Gabapentin 300 MG CAP PO (07:44)
[2020-10-25] MEDS: hydroCHLOROthiazide 12.5 MG TAB PO (07:44)
[2020-10-25] MEDS: Folic Acid 1 MG TAB PO (07:44)
[2020-10-25] MEDS: Venlafaxine 37.5 MG CAPCR PO (07:44)
[2020-10-25] MEDS: Thiamine 100 MG TAB PO (07:44)
[2020-10-25] MEDS: amLODIPine 10 MG TAB PO (07:45)
[2020-10-25] MEDS: Metoprolol 50 MG TAB PO (07:45)
[2020-10-25] MEDS: Sucralfate 1 GM TAB PO ×2 (07:45→11:22)
[2020-10-25] MEDS: Pantoprazole 40 MG TABCR PO (07:45)
[2020-10-25] MEDS: Venlafaxine 150 MG CAPCR PO (07:45)
[2020-10-25] MEDS: Multivitamin TAB 1 TAB PO (07:45)
[2020-10-25] MEDS: Normal Saline Flush 10 ML SYR IVP (07:46)
[2020-10-25] MEDS: Heparin 5,000 UNITS/ML VIAL 5000 UNITS SC (07:46)
[2020-10-25] MEDS: Hydrocortisone 1% CR 30 GM TUBE TP (07:47)
[2020-10-25] MEDS: Fluticasone NASAL SPRAY 16 GM BTL NS (07:47)
[2020-10-25 07:52] VITALS: BP 176/88; PULSE 77; RESP 14; TEMP 37.2; O2SAT 94
[2020-10-25] MEDS: cefTRIAXone 1 GM/50 ML BAG IVPB (09:30)
[2020-10-25] MEDS: Cholestyramine/Aspartame PKT 1 EACH PO (09:31)
[2020-10-25] MEDS: Magnesium Oxide 400 MG TAB PO (09:31)
--- NOTE | 2020-10-25 10:42 | DSE_ITS ---
Date of service: 10/25/20 Time of Service: 10:43 DS: Diagnosis Discharge Diagnosis (1) Suicidal ideation: Start date: 10/25/20 Start time: 10:43 Status: Acute Asessment and Plan: very depressed feels though her family hates her, actively admitting to have her thoughts of killing herself and killing her animals she has been accepted to [facility] as an inpatient. Will be transferred there today (2) Alcohol abuse: Start date: 10/25/20 Start time: 10:49 Status: Acute Asessment and Plan: She was initially intoxicated on admission. No longer intoxicated, She has never gone through withdrawal symptoms in the hospital and she has had multiple admissions with us. Electrolytes repleted Ativan BID for anxeity MVI, Thiamine, folate (3) Pruritus: Start date: 10/25/20 Start time: 10:54 Status: Acute Asessment and Plan: Cont Eucerin TID, 1% hydrocortison cream TID. IV diphenhydramine prn, Montelukast 10mg nightly. Restart cholestyramine BID. Outpt skin bx recommended. (4) Hypertension: Start date: 10/25/20 Start time: 11:02 Status: Chronic Asessment and Plan: ont Metoprolol, HCTZ and amlodipine. (5) UTI (urinary tract infection): Start date: 10/25/20 Start time: 11:02 Status: Acute Asessment and Plan: Urine culture with gram negative apollo treated with 2 days IV ceftriaxone will switch to po cefpodixime. 200 mg daily x 3 days. above case discussed with Dr. Dumont who is inagreement Discharge Plan Disposition Patient Disposition: [facility] Condition: Stable Discharge Details Reason For Visit: SUICIDAL IDEATION, ALCOHOL INTOXICATION Admit Date/Time: 10/22/20 14:12 Admit Provider: Aydin Joy Attending Provider: Aydin Joy Primary Care Provider: Lavelle Galindo Hospital Course Hospital Course: This is a 75 yo female with a h/o alcohol abuse, Falls resulting in fractures, HLD, HTN, depression, Wernicke encephalopathy, anemia. Her caregiver endorsed that the patient stated I'm going to right here, I could just kill myself and it would be fine. EMS reported the patient voiced suicidal ideations to her caregiver. She states that she is highly stressed by generalized pruritis. She denies any ROSS/SOA above her baseline. She endorses being more ambulatory recently; trying to improve her deconditioned state. No F/C, pustules, ulcerations. In the ED her Etoh level was elevated at 179.4. WBC count 3.51, Hgb 11.9, MCV 102, platelets 205, Na 141, K 2.9, BUN 12, Creatinine 1.0, Magnesium 1.5, Bilirubin 0.7, AST 73, ALT 59. Urine with nitrates and leuk est. She also comes in intoxicated She was admitted to /S electrolytes repleted, ativan for anxiety over her itching. Leticia is very depressed this visit; she has never gone through withdrawal and is not displaying any withdrawal symptoms. She is the most depressed I have seen her in any visit. She states her family hates her; she is discouraged and wants to kill herself and her animals. She is also having severe puritis, which is likely adding to her depression. Steroid cream with benadryl and cholestyramine for itching has helped. She has been on ceftriaxone for two days urine culture grew gram negative rods she will be switched to cefpodxime and finish a 3 day course. MH met with patient and felt she met inpatient psychiatric care, therefore she has been accepted to [facility] psych center. She will be transferred via EMS. Home Meds and New Rx's Prescriptions: New diphenhydramine HCl 25 mg Capsule 25 mg PO Q4H PRN PRNQty: 20 RF: 0 Restasis 0.05 % Dropperette 0.4 ml OU BID Qty: 10 RF: 0 hydrocortisone 1 % Cream 0 g topical TID Qty: 1 RF: 2 Eucerin Cream 0 g topical TID Qty: 1 RF: 1 Continued Xiidra 5 % dropperette 1 drp ophthalmic (eye) BID RF: 0 magnesium oxide 400 mg magnesium capsule 400 mg PO BID Qty: 180 RF: 3 celecoxib [Celebrex] 100 mg capsule 100 mg PO BID Qty: 60 RF: 2 cholestyramine (with sugar) 4 gram powder 1 pwd PO BID Qty: 378 RF: 0 Ensure Active High Protein Liquid 414 ml PO DAILY Qty: 31359 RF: 11 dicyclomine 10 mg capsule 10 mg PO QID PRN (Reason: belly pain) Qty: 40 RF: 0 sucralfate 1 gram tablet 1 g PO AC & HS Qty: 120 RF: 5 ipratropium-albuterol 0.5 mg-3 mg(2.5 mg base)/3 mL solution for nebulization 3 ml IH QID PRN (Reason: shortness of breath) Qty: 90 RF: 3 fluticasone propionate 50 mcg/actuation spray,suspension 1 spray NS daily prn Qty: 9.9 RF: 2 amlodipine 10 mg tablet 10 mg PO DAILY Qty: 90 RF: 3 gabapentin 300 mg capsule 300 mg PO BID Qty: 90 RF: 5 hydrochlorothiazide 12.5 mg tablet 12.5 mg PO DAILY Qty: 90 RF: 3 metoprolol tartrate 50 mg tablet 50 mg PO BID Qty: 180 RF: 3 multivitamin [Multiple Vitamins] Tablet 1 tab PO DAILY Qty: 90 RF: 3 pantoprazole 40 mg tablet,delayed release (DR/EC) 40 mg PO DAILY Qty: 90 RF: 3 potassium chloride [Klor-Con M10] 10 mEq tablet,ER particles/crystals 10 meq PO DAILY Qty: 90 RF: 3 venlafaxine 37.5 mg capsule,extended release 24hr 37.5 mg PO DAILY Qty: 30 RF: 11 venlafaxine 150 mg capsule,extended release 24hr 150 mg PO DAILY Qty: 30 RF: 11 thiamine HCl (vitamin B1) 100 mg tablet 100 mg PO DAILY Qty: 90 RF: 3 folic acid 1 mg tablet 1 mg PO DAILY Qty: 90 RF: 3 doxepin 3 mg tablet 3 mg PO BID PRN (Reason: itch) Qty: 30 RF: 0 hydroxyzine HCl 25 mg tablet 25 mg PO TID PRN (Reason: itching) Qty: 30 RF: 2 Refresh Plus 0.5 % Dropperette 1 drp OU Q4H WHILE AWAKE Qty: 30 RF: 0 ascorbic acid (vitamin C) [Vitamin C] 500 mg Tablet 500 mg PO BID Qty: 30 RF: 0 Bio-K plus 50 billion cell Capsule,Delayed Release(Dr/Ec) 1 cap PO DAILY Qty: 60 RF: 0 sennosides [Senokot] 8.6 mg tablet 8.6 mg PO PRN PRNRF: 0 chlordiazepoxide HCl 25 mg capsule 25 mg PO Q12H Qty: 7 RF: 0 Discontinued triamcinolone acetonide 0.025 % cream 1 applic topical BID Qty: 15 RF: 0 permethrin 5 % cream 1 applic topical .q 7 days Qty: 60 RF: 1 ondansetron 4 mg tablet,disintegrating 4 mg PO Q8H PRN (Reason: nausea and vomiting) Qty: 10 RF: 0 nitrofurantoin monohyd/m-cryst [Macrobid] 100 mg capsule 100 mg PO BID Qty: 9 RF: 0 Discharge Instructions Instructions: Eczema (ED), Dermatitis (GEN) Additional Instructions: Transfer to [facility] Activity:: Activity as Tolerated Equipment/Supplies:: No Equipment Needed Diet:: Low Sodium Discharge Orders Discharge Orders: Discharge Order (Routine); Ordered 10/25/20 Ordered By: Pat Navarro DS: Summary Time Spent with Patient providing and/or coordinating discharge services: Greater than 30 minutes (approx discharge time 40 mins) Status at Discharge Functional status at discharge: independent ambulation Overall status at discharge: patient is not back to baseline Mental Status: other Speech and Movement: speech and movement normal Mood: angry Affect: irritable affect and blunted Exam Const General: cooperative, no acute distress, anxious and other (fatigued appearing.) Nutritional Appearance: average body habitus and overweight Orientation: alert, awake, oriented x3, oriented to person and oriented to place [facility] Head: normocephalic and atraumatic Eyes Sclera: sclerae normal Pupils: PERRL Resp Effort & Inspection: normal respiratory effort and able to speak in complete sentences Auscultation: clear to auscultation bilaterally, diminished lung sounds and rales bilaterally in the lower lung gatica Cardio Jugular venous pressure: no JVD Rate: regular rate Rhythm: regular rhythm Heart Sounds: S1 normal and S2 normal GI Palpation: soft and nontender Auscultation: normal bowel sounds Skin Lesions: lesion noted (scattered exoriated lesions on erythematous base; arms upper/lower back/abd) and other (scattered excoriated lesions with erythematous base.) Extrem General: no pedal edema and no calf tenderness Psych Appearance: grossly normal and disheveled Speech and Movement: speech and movement normal Mood: angry Affect: irritable affect and blunted DS: Data Vitals/I&O Vitals and I&O: Vital Signs Temperature 37.2 C 10/25/20 07:52 Temperature Source Tympanic 10/25/20 07:52 Pulse 77 10/25/20 07:52 Pulse Rhythm Regular 10/25/20 07:40 Respiratory Rate 14 10/25/20 07:52 Respiratory Effort Non-Labored 10/25/20 07:40 Respiratory Depth Normal 10/25/20 07:40 Respiratory Pattern Normal 10/25/20 07:40 Blood Pressure 176/88 H 10/25/20 07:52 Pulse Oximetry 94 10/25/20 07:52 Oxygen Delivery Method Room Air 10/25/20 07:52 Oxygen Flow Rate 0 10/25/20 07:52 Pain Level 3 10/25/20 07:59 Comment 10/24/20 20:00 Intake & Output 10/24/20 10/24/20 10/25/20 11:59 23:59 11:59 Intake Total 701.667 / 1581.667 880 / 1581.667 720 / 720 Output Total 500 / 1750 1250 / 1750 1300 / 1300 Balance 201.667 / -168.333 -370 / -168.333 -580 / -580 Intake: IV 101.667 / 101.667 10 / 10 Oral 600 / 1480 880 / 1480 710 / 710 Output: Urine 500 / 1750 1250 / 1750 1300 / 1300 Other: Urine Color Straw Pale Pale Yellow Yellow Urine Appearance Clear Clear Clear Urine Odor Strong Normal Normal Comment Checked and dry Small amount of urine in diaper. Replaced pt wet diaper. Small amount of urine in pt diaper. Replaced pt wet diaper. Stool Size Small Stool Characteristics Soft Voiding Methods Bedside Commode Bedside Commode Diaper Incontinent Data Completed and Pending Completed studies during hospitalization [Text1]: COMPARISON: CR XR RIBS RT PA CHEST 3V from 04/25/2020 FINDINGS: Heart size is upper normal. The mediastinum is not widened. Lungs are clear. No infiltrates nor obvious pleural effusions. Multiple healed left-sided rib fractures are again noted. Deformities lateral aspect both clavicles again noted including what appears to be partial resection of the lateral aspect of the left clavicle. Fracture deformity of the lateral aspect of the opposite-right clavicle is noted. IMPRESSION: No acute pulmonary findings on this single AP portable view of the chest.Healed left-sided rib fractures again noted. [facility] Medical History Adjustment disorder with depressed mood AMBER (acute kidney injury) Alcohol abuse Alcoholic gastritis without bleeding Alcoholic ketosis Allergic rhinitis Anemia (12/20/16) Back pain, chronic Calcific tendinitis of left shoulder CAP (community acquired pneumonia) Cataract (11/07/15) Cervical radicular pain neck pain and DJD [facility] 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) pls refrain from alcohol Chronic alcoholism she will not stop drinking unless she checks with me, so that we can help her avert withdrawal I do not think she is capable on her own--she would need placement to achieve required goal of 3 months of sobriety Chronic diarrhea Closed displaced fracture of proximal phalanx of right index finger with routine healing (06/03/17) Closed right humeral fracture Contusion of left little finger Corneal ulcer, right (~08/23/18) 08/23/18; [facility]- Dehydration Depression Diarrhea Discharge planning issues DVT prophylaxis Dystrophic nail Elev transaminase/LDH due to alcohol Epigastric abdominal pain Fall as cause of accidental injury at home as place of occurrence Genital herpes simplex recurrent gential; suppressive Valtrex GERD (gastroesophageal reflux disease) GI bleed (12/20/16) Head contusion Headache History of alcohol abuse Humerus fracture (09/12/19) Right Hyperlipidemia Hypertension Incidental lung nodule, greater than or equal to 8mm 1cm, spiculated, stable for many years, recommend f/u in 6 mo Macrocytosis (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 Multiple rib fractures 03/11/19 [facility] Nausea and vomiting in adult Non-cardiac chest pain (09/21/16) [facility] 09/21/16 NEGATIVE MP Osteoarthritis Osteopenia Palliative care patient (03/21/17) Pancreatitis, alcoholic, acute Peripheral edema Pleural effusion on left 03/11/19 [facility] Presacral mass (~09/15/18) 09/15/18 [facility] Right rib fracture Sacral mass Sciatica right, epidural injuections [facility] Tendinitis of left rotator cuff Tubular adenoma of colon (01/28/17) Urinary incontinence 01/24/13 urethral suspension and sling at [facility] (bladder suspension 1991) UTI (urinary tract infection) 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 Bladder repair. Ligation of fallopian tube Repair bladder injury, simple Family History Mother No problems noted. Father , DROWNED at age 50. No problems noted. Sister Personal history of malignant neoplasm MELANOMA Sister No problems noted. Grandfather Personal history of malignant neoplasm STOMACH Grandfather Personal history of malignant neoplasm PROSTATE Grandmother Heart disease OR Acute ill-defined cerebrovascular disease Grandmother Personal history of malignant neoplasm UTERINE Aunt , OR Heart disease OR Aunt , OR Heart disease Brother No problems noted. Social History Smoking/Tobacco Use Status: Former Tobacco Use Quit Date: 08/05/20 Smoking risk assessment performed?: Yes Alcohol Intake: current Alcohol Intake frequency: 3 or more drinks per day Alcohol type: hard liquor Drug use: Never Substance use type: does not use Current gender identity: female Do you feel safe at home: Yes Do you feel safe in your relationship?: Yes
--- NOTE | 2020-10-25 11:03 | NUR.NOTE ---
Nursing Note: 11:03 10/25/2020 Nursing handoff provided to Gracia at psychiatric unit at [facility], . This nurse provided a [id number] handoff and answered all questions, Gracia verbalized understanding of patient's current condition. Transfer via [facility] is scheduled for 14:00.
[2020-10-25 11:23] VITALS: BP 149/78; PULSE 64; RESP 18; TEMP 37.3; O2SAT 93
--- NOTE | 2020-10-25 13:43 | CMDISCH_ITS ---
- If Service Date Differs Date of service: 10/25/20 Time of Service: 13:43 LACE Index Scoring Tool - Questions: Length of Stay (in days): 3 Acuity (Admit via E.D.?): Yes Comorbidities: Mild Liver/Renal Disease E.D. Visits: 20 - Answers: Total Score: 12 Risk of Readmission: High Risk Care Management Discharge Reason for Hospitalization: Suicidal ideation and alcohol intoxication. Discharge Plan: Leticia was transferred to [facility] for psychiatric stabilization. She was transported via ambulance by [facility]. She will follow up with [facility] and her discharge plan once she returns home. She is agreeable to go to , as she reports that she does not have anything to live for, and is reaching out for help. CM coordinated the transport, and informed of her expected time of arrival. Patient/Family Education Needs: Review discharge instructions regarding activity levels and medications, discussion of expectations of inpatient psychiatric care. Services Needed at Discharge: Psychiatric Facility ([facility]), Transportation ([facility])
== END 2020-10-25 13:25 | disposition short-term general hospital (02) | DRG 897 ==
LOC: ER 14:48 → MS 15:30
PROVIDERS: Admitting Provider Family Medicine; Emergency Provider Physician Assistant; PCP Family Medicine; Visit Provider Family Medicine
DX: F10.129 Alcohol abuse with intoxication, unspecified (principal); R45.851 Suicidal ideations; E51.2 Wernicke's encephalopathy; N30.00 Acute cystitis without hematuria; Y90.6 Blood alcohol level of 120-199 mg/100 ml; L29.9 Pruritus, unspecified; E83.42 Hypomagnesemia; D63.8 Anemia in other chronic diseases classified elsewhere; E87.6 Hypokalemia; I10 Essential (primary) hypertension; E78.5 Hyperlipidemia, unspecified; H04.129 Dry eye syndrome of unspecified lacrimal gland; K29.20 Alcoholic gastritis without bleeding; G89.29 Other chronic pain; M54.9 Dorsalgia, unspecified; M47.22 Other spondylosis with radiculopathy, cervical region; A60.00 Herpesviral infection of urogenital system, unspecified; K21.9 Gastro-esophageal reflux disease without esophagitis; D75.89 Other specified diseases of blood and blood-forming organs; M54.31 Sciatica, right side
CPT/HCPCS: 36415; 80053; 80061; 80307; 96365; 99222; 99232; 99239; 99285; 71045; 80320; 81003; 81015; 82607; 83540; 83550; 83735; 84439; 84443; 84484; 85025; 87086; J0696; J1644; J3475; J7512

== ENCOUNTER 2020-11-02 15:46 | Inpatient (IN) | payer OTHER, SELFPAY ==
[2020-11-02] VITALS (20 sets, daily range): BP systolic 156–200; BP diastolic 64–103; PULSE 106–139; RESP 15–20; TEMP 36.8–37.2; O2SAT 95–100
--- NOTE | 2020-11-02 16:15 | RT.EKG_ITS ---
APPROVED REPORT Exam: Resting ECG Patient Location: E HR:125 bpm ECG Measurements Heart Rate 125 AXIS UT 124 P 2 QRSd 84 QRS -35 QT 365 T -84 QTc 527 Conclusion Sinus tachycardia...rate> 99 Inferior infarct, old...Q >35mS, II III aVF Prolonged QT interval...QTc >500mS
--- NOTE | 2020-11-02 16:15 | DI.CT_ITS ---
EXAM: CT CHEST PE ABD PELVIS W CLINICAL HISTORY: tachy, sob. TECHNIQUE: Imaging Protocol: Axial CT angiography was performed with multi-slice acquisition and mu lti-planar and/or 3D reconstructions. CONTRAST MATERIAL: Intravenous: Omnipaque 350 Contrast volume:100 ml Intravenous: Omnipaque 350 Contrast volume:100 cc COMPARISON: MR MRI - LUMBAR SPINE WO CONTRAST from 08/11/[address] CHEST/ABD/PEL W from 04/13/[address] CHEST/ABD/PEL W from 04/13/[address] CHEST WO from 05/08/[address] CHEST WO from 05/08/[address] CHEST/ABD/PEL W from 09/01/2020 FINDINGS: CHEST: Pulmonary Arteries: No evidence of filling defect to suggest pulmonary emboli. Tracheobronchial tree: Patent where visualized. Mediastinum and Vilma: No dominant adenopathy or fluid collection. Pulmonary parenchyma: Mild multifocal atelectasis. Expiratory changes. Stable right upper lobe dens ity, consistent with scarring. No consolidation. Pleura: No effusion or pneumothorax. Heart: The heart is mildly enlarged.. No coronary artery calcifications are seen. Aorta: Mild dilatation up to 4.1 cm. No dissection. Mild calcification. Bones: Multiple old bilateral rib fractures.. ABDOMEN: Liver: Normal density. No measurable mass. Portal, Superior Mesenteric, and Splenic Veins: Unremarkable. Gallbladder and Biliary Tract: No radiodense calculus or dilation. Pancreas: Normal density, no abnormal calcifications or inflammatory process. Spleen: Normal. Adrenals: No masses seen. Kidneys: Normal size, contour and axis. No radiodense stones or obstructive uropathy. Stable cysts. No masses seen. Abdominal Aorta: Abdominal portion non-dilated. Bowel: Small hiatal hernia. No obstruction or bowel wall thickening. Appendix is unremarkable. Colon decompressed. Peritoneal Cavity: No ascites, collection or mesenteric inflammatory response. Lymph Nodes: Within normal limits. Bones: Degenerative disc changes and facet degenerative changes. Stable mild compression inferior en dplate of T12. Soft Tissues: Unremarkable. PELVIS: Bladder: Symmetric distention, no gross wall thickening. Reproductive Organs: Unremarkable as visualized. Lymph Nodes: Within normal limits. Bones: Within normal limits. Stable lobulated mass in the presacral region IMPRESSION: 1. No evidence of pulmonary embolism. Or other acute abnormality in the chest. 2. No acute abdominal or pelvic process. Stable lobulated presacral mass. RADIATION DOSE DELIVERED: LINK-TO-SR Total DLP 1,412.76mGy.cm Total DLP DATA REPOSITORY: All CT scans at this facility are submitted to the National Radiology Data Registry (NRDR) Dose Index Registry (DIR) with the [employer] (ACR). RADIATION OPTIMIZATION: All CT scans at this facility use at least one of these dose optimization te chniques: automated exposure control; mA and/or kV adjustment per patient size (includes targeted exa ms where dose is matched to clinical indication); or iterative reconstruction.
--- NOTE | 2020-11-02 16:15 | W.ED.GENAD ---
Discharge Plan Discharge Details Chief Complaint: RashLesion Primary Care Provider: Lavelle Galindo ED Provider: Monica Yarbrough Home Meds and New Rx's Prescriptions: No Action Xiidra 5 % dropperette 1 drp ophthalmic (eye) BID RF: 0 magnesium oxide 400 mg magnesium capsule 400 mg PO BID Qty: 180 RF: 3 celecoxib [Celebrex] 100 mg capsule 100 mg PO BID Qty: 60 RF: 2 cholestyramine (with sugar) 4 gram powder 1 pwd PO BID Qty: 378 RF: 0 Ensure Active High Protein Liquid 414 ml PO DAILY Qty: 24781 RF: 11 dicyclomine 10 mg capsule 10 mg PO QID PRN (Reason: belly pain) Qty: 40 RF: 0 sucralfate 1 gram tablet 1 g PO AC & HS Qty: 120 RF: 5 ipratropium-albuterol 0.5 mg-3 mg(2.5 mg base)/3 mL solution for nebulization 3 ml IH QID PRN (Reason: shortness of breath) Qty: 90 RF: 3 fluticasone propionate 50 mcg/actuation spray,suspension 1 spray NS daily prn Qty: 9.9 RF: 2 amlodipine 10 mg tablet 10 mg PO DAILY Qty: 90 RF: 3 gabapentin 300 mg capsule 300 mg PO BID Qty: 90 RF: 5 hydrochlorothiazide 12.5 mg tablet 12.5 mg PO DAILY Qty: 90 RF: 3 metoprolol tartrate 50 mg tablet 50 mg PO BID Qty: 180 RF: 3 multivitamin [Multiple Vitamins] Tablet 1 tab PO DAILY Qty: 90 RF: 3 pantoprazole 40 mg tablet,delayed release (DR/EC) 40 mg PO DAILY Qty: 90 RF: 3 potassium chloride [Klor-Con M10] 10 mEq tablet,ER particles/crystals 10 meq PO DAILY Qty: 90 RF: 3 venlafaxine 37.5 mg capsule,extended release 24hr 37.5 mg PO DAILY Qty: 30 RF: 11 venlafaxine 150 mg capsule,extended release 24hr 150 mg PO DAILY Qty: 30 RF: 11 thiamine HCl (vitamin B1) 100 mg tablet 100 mg PO DAILY Qty: 90 RF: 3 folic acid 1 mg tablet 1 mg PO DAILY Qty: 90 RF: 3 doxepin 3 mg tablet 3 mg PO BID PRN (Reason: itch) Qty: 30 RF: 0 hydroxyzine HCl 25 mg tablet 25 mg PO TID PRN (Reason: itching) Qty: 30 RF: 2 Refresh Plus 0.5 % Dropperette 1 drp OU Q4H WHILE AWAKE Qty: 30 RF: 0 diphenhydramine HCl 25 mg Capsule 25 mg PO Q4H PRN PRNQty: 20 RF: 0 Restasis 0.05 % Dropperette 0.4 ml OU BID Qty: 10 RF: 0 hydrocortisone 1 % Cream 0 g topical TID Qty: 1 RF: 2 Eucerin Cream 0 g topical TID Qty: 1 RF: 1 ascorbic acid (vitamin C) [Vitamin C] 500 mg Tablet 500 mg PO BID Qty: 30 RF: 0 Bio-K plus 50 billion cell Capsule,Delayed Release(Dr/Ec) 1 cap PO DAILY Qty: 60 RF: 0 sennosides [Senokot] 8.6 mg tablet 8.6 mg PO PRN PRNRF: 0 chlordiazepoxide HCl 25 mg capsule 25 mg PO Q12H Qty: 7 RF: 0 Medical Decision Making Patient is alert and oriented but quite tremulous and tachycardic, consistent with alcohol withdrawal, she has tongue fasciculations and tremor Her CIWA score is 11 She was given IV hydration and Ativan in the emergency room Her heart rate is now 125 down from 140 Lactate is 5, pH actually went within normal limits Magnesium and potassium do not show acute pathology Bilirubin within normal limits Given the acuity of patient's presentation she will need to be admitted for observation, Dr. Cosme to admit patient Dr. Cosme to admit patient Of note, patient does have prolongation of qtc, [address] Keenan, radiologist regarding evidence of persisting mass with area chest and abdomen and pelvis No evidence of pulmonary embolism per radiology No acute findings per radiology Differential Diagnosis Differential Diagnosis: Alcoholic KA., Electrolyte abnormality, hyperbilirubinemia, EtOH withdrawa Medical Records Medical records reviewed: Yes I reviewed the patient's medical records. HPI This 75-year-old female with history of alcohol abuse, hypertension, hyperlipidemia, depression, osteopenia, anemia presents with diffuse. It started on Tuesday of this week. She denies any cyst, detergents, medications. She denies prior history of similar symptoms in the past. She denies any chest pain. She states she has felt short of breath but she wonders if anxiety from being itchy at home. She states she scratching so much that she has abrasions. She denies any new sheets on her bed or any known exacerbating or alleviating factors. She has not alcohol. She states she drinks approximately 6 to 8 ounces of hard alcohol every other day. She states she is not having withdrawal symptoms from cough. Her last drink was yesterday reportedly. She denies any fever or chills. She denies any urinary complaints. She does have some right upper quadrant abdominal pain reportedly. She denies change in her bowel movements. Denies any auditory or visual hallucinations. General Date/Time Provider Initiated Documentation: 11/02/20 16:06. Related Data Home Medications Medication Instructions Recorded Confirmed Refresh Plus 1 drp OU Q4H WHILE AWAKE #30 each 06/20/19 11/02/20 magnesium oxide 400 mg PO BID #180 cap 07/17/19 11/02/20 food supplemt, lactose-reduced 414 ml PO DAILY #11816 ml 08/24/19 11/02/20 dicyclomine 10 mg capsule 10 mg PO QID PRN #40 cap 11/06/19 11/02/20 sucralfate 1 gram tablet 1 g PO AC & HS #120 tab 11/06/19 11/02/20 ipratropium 0.5 mg-albuterol 3 mg 3 ml IH QID PRN #90 ml 01/04/20 11/02/20 (2.5 mg base)/3 mL nebulization soln fluticasone propionate 50 1 spray NS daily prn #9.9 ml 03/25/20 11/02/20 mcg/actuation nasal spray,suspension Bio-K plus 1 cap PO DAILY #60 cap 05/12/20 11/02/20 ascorbic acid (vitamin C) [Vitamin 500 mg PO BID #30 tab 05/12/20 11/02/20 C] celecoxib 100 mg capsule 100 mg PO BID #60 cap 06/13/20 11/02/20 lifitegrast 5 % eye drops in a 1 drp OPHTHALMIC (EYE) BID 08/05/20 11/02/20 dropperette sennosides [Senokot] 8.6 mg PO PRN PRN 08/08/20 11/02/20 chlordiazepoxide HCl 25 mg PO Q12H #7 cap 08/09/20 11/02/20 cholestyramine (with sugar) 4 gram 1 pwd PO BID #378 g 08/27/20 11/02/20 oral powder amlodipine 10 mg tablet 10 mg PO DAILY #90 tab 09/05/20 11/02/20 folic acid 1 mg tablet 1 mg PO DAILY #90 tab 09/05/20 11/02/20 gabapentin 300 mg capsule 300 mg PO BID #90 cap 09/05/20 11/02/20 hydrochlorothiazide 12.5 mg tablet 12.5 mg PO DAILY #90 tab 09/05/20 11/02/20 metoprolol tartrate 50 mg tablet 50 mg PO BID #180 tab 09/05/20 11/02/20 multivitamin 1 tab PO DAILY #90 tab 09/05/20 11/02/20 pantoprazole 40 mg tablet,delayed 40 mg PO DAILY #90 tab 09/05/20 11/02/20 release potassium chloride 10 mEq 10 meq PO DAILY #90 tab 09/05/20 11/02/20 tablet,extended release(part/cryst) thiamine HCl (vitamin B1) 100 mg 100 mg PO DAILY #90 tab 09/05/20 11/02/20 tablet venlafaxine 150 mg 150 mg PO DAILY #30 cap 09/05/20 11/02/20 capsule,extended release 24 hr venlafaxine 37.5 mg 37.5 mg PO DAILY #30 cap 09/05/20 11/02/20 capsule,extended release 24 hr doxepin 3 mg tablet 3 mg PO BID PRN #30 tab 10/15/20 11/02/20 hydroxyzine HCl 25 mg tablet 25 mg PO TID PRN #30 tab 10/17/20 11/02/20 cyclosporine [Restasis] 0.4 ml OU BID #10 ea 10/25/20 11/02/20 diphenhydramine HCl 25 mg PO Q4H PRN PRN #20 cap 10/25/20 11/02/20 hydrocortisone 0 g TOPICAL TID #1 applic 10/25/20 11/02/20 lanolin xyjtvoj-dr-n.pet-ceres 0 g TOPICAL TID #1 unit 10/25/20 11/02/20 [Eucerin] Previous Rx's Medication Instructions Recorded Refresh Plus 1 drp OU Q4H WHILE AWAKE #30 each 06/20/19 magnesium oxide 400 mg PO BID #180 cap 07/17/19 food supplemt, lactose-reduced 414 ml PO DAILY #19060 ml 08/24/19 dicyclomine 10 mg capsule 10 mg PO QID PRN #40 cap 11/06/19 sucralfate 1 gram tablet 1 g PO AC & HS #120 tab 11/06/19 ipratropium 0.5 mg-albuterol 3 mg 3 ml IH QID PRN #90 ml 01/04/20 (2.5 mg base)/3 mL nebulization soln fluticasone propionate 50 1 spray NS daily prn #9.9 ml 03/25/20 mcg/actuation nasal spray,suspension Bio-K plus 1 cap PO DAILY #60 cap 05/12/20 ascorbic acid (vitamin C) [Vitamin 500 mg PO BID #30 tab 05/12/20 C] celecoxib 100 mg capsule 100 mg PO BID #60 cap 06/13/20 chlordiazepoxide HCl 25 mg PO Q12H #7 cap 08/09/20 cholestyramine (with sugar) 4 gram 1 pwd PO BID #378 g 08/27/20 oral powder amlodipine 10 mg tablet 10 mg PO DAILY #90 tab 09/05/20 folic acid 1 mg tablet 1 mg PO DAILY #90 tab 09/05/20 gabapentin 300 mg capsule 300 mg PO BID #90 cap 09/05/20 hydrochlorothiazide 12.5 mg tablet 12.5 mg PO DAILY #90 tab 09/05/20 metoprolol tartrate 50 mg tablet 50 mg PO BID #180 tab 09/05/20 multivitamin 1 tab PO DAILY #90 tab 09/05/20 pantoprazole 40 mg tablet,delayed 40 mg PO DAILY #90 tab 09/05/20 release potassium chloride 10 mEq 10 meq PO DAILY #90 tab 09/05/20 tablet,extended release(part/cryst) thiamine HCl (vitamin B1) 100 mg 100 mg PO DAILY #90 tab 09/05/20 tablet venlafaxine 150 mg 150 mg PO DAILY #30 cap 09/05/20 capsule,extended release 24 hr venlafaxine 37.5 mg 37.5 mg PO DAILY #30 cap 09/05/20 capsule,extended release 24 hr doxepin 3 mg tablet 3 mg PO BID PRN #30 tab 10/15/20 hydroxyzine HCl 25 mg tablet 25 mg PO TID PRN #30 tab 10/17/20 cyclosporine [Restasis] 0.4 ml OU BID #10 ea 10/25/20 diphenhydramine HCl 25 mg PO Q4H PRN PRN #20 cap 10/25/20 hydrocortisone 0 g TOPICAL TID #1 applic 10/25/20 lanolin qlmtvwv-vx-t.pet-ceres 0 g TOPICAL TID #1 unit 10/25/20 [Eucerin] Allergies Allergy/AdvReac Type Severity Reaction Status Date / Time Penicillins Allergy Mild Rash Verified 11/02/20 16:03 ramipril Allergy Unknown ITCHING Verified 11/02/20 16:03 meperidine [From Demerol] AdvReac Severe Nausea Verified 11/02/20 16:03 bupropion AdvReac Mild GI upset Verified 11/02/20 16:03 AMBER Inhibitors AdvReac Unknown COUGH Verified 11/02/20 16:03 alendronate sodium AdvReac Unknown GI Distress Verified 11/02/20 16:03 clarithromycin AdvReac Unknown intolerant Verified 11/02/20 16:03 paroxetine AdvReac Unknown Diarrhea Verified 11/02/20 16:03 General Stated Complaint: RashLesion JORDAN: 2 Review of Systems Narrative: Review of systems negative x7 approximately stated in HPI specifically no chest pain, cough, vomiting, diarrhea, history of coagulopathy [facility] History Adjustment disorder with depressed mood AMBER (acute kidney injury) Alcohol abuse Alcoholic gastritis without bleeding Alcoholic ketosis Allergic rhinitis Anemia (12/20/16) Back pain, chronic Calcific tendinitis of left shoulder CAP (community acquired pneumonia) Cataract (11/07/15) Cervical radicular pain neck pain and DJD [facility] 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) pls refrain from alcohol Chronic alcoholism she will not stop drinking unless she checks with me, so that we can help her avert withdrawal I do not think she is capable on her own--she would need placement to achieve required goal of 3 months of sobriety Chronic diarrhea Closed displaced fracture of proximal phalanx of right index finger with routine healing (06/03/17) Closed right humeral fracture Contusion of left little finger Corneal ulcer, right (~08/23/18) 08/23/18; [facility] Dehydration Depression Diarrhea Discharge planning issues DVT prophylaxis Dystrophic nail Elev transaminase/LDH due to alcohol Epigastric abdominal pain Fall as cause of accidental injury at home as place of occurrence Genital herpes simplex recurrent gential; suppressive Valtrex GERD (gastroesophageal reflux disease) GI bleed (12/20/16) Head contusion Headache History of alcohol abuse Humerus fracture (09/12/19) Right Hyperlipidemia Hypertension Incidental lung nodule, greater than or equal to 8mm 1cm, spiculated, stable for many years, recommend f/u in 6 mo Macrocytosis (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 Multiple rib fractures 03/11/19 [facility] Nausea and vomiting in adult Non-cardiac chest pain (09/21/16) [facility] [place] 09/21/16 NEGATIVE MP Osteoarthritis Osteopenia Palliative care patient (03/21/17) Pancreatitis, alcoholic, acute Peripheral edema Pleural effusion on left 03/11/19 [facility] Presacral mass (~09/15/18) 09/15/18 [facility] Right rib fracture Sacral mass Sciatica right, epidural injuections [facility] Tendinitis of left rotator cuff Tubular adenoma of colon (01/28/17) Urinary incontinence 01/24/13 urethral suspension and sling at [facility] [place] (bladder suspension 1991) UTI (urinary tract infection) 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 Bladder repair. Ligation of fallopian tube Repair bladder injury, simple Family History Mother No problems noted. Father , DROWNED at age 50. No problems noted. Sister Personal history of malignant neoplasm MELANOMA Sister No problems noted. Grandfather Personal history of malignant neoplasm STOMACH Grandfather Personal history of malignant neoplasm PROSTATE Grandmother Heart disease AR Acute ill-defined cerebrovascular disease Grandmother Personal history of malignant neoplasm UTERINE Aunt , AR Heart disease AR Aunt , AR Heart disease Brother No problems noted. Social History Smoking/Tobacco Use Status: Former Tobacco Use Quit Date: 08/05/20 Smoking risk assessment performed?: Yes Alcohol Intake: current Alcohol Intake frequency: 0-2 drinks per day Alcohol type: hard liquor Drug use: Never Substance use type: does not use Current gender identity: female Do you feel safe at home: Yes Do you feel safe in your relationship?: Yes Exam Const General: acute distress, anxious and disheveled HENMT Head: normal to inspection Mouth: oral mucosae normal Throat: uvula midline Other: tongue fasciculations Eyes Pupils: PERRL Neck Other: No stridor no midline tenderness Chest Chest: normal inspection of the chest Resp Effort & Inspection: normal respiratory effort Auscultation: clear to auscultation bilaterally Cardio Rate: tachycardic Rhythm: regular rhythm GI Other: Right upper quadrant tenderness with palpation Skin Other: Generalized excoriations Neuro General: patient alert and patient oriented x3 Cranial Nerves: CN's II-XI intact bilaterally Psych Appearance: disheveled Course Vital Signs Vital signs: Vital Signs Temperature 36.8 C 11/02/20 15:58 Pulse 139 H 11/02/20 15:58 Respiratory Rate 20 11/02/20 15:58 Blood Pressure 189/91 H 11/02/20 15:58 Pulse Oximetry 96 11/02/20 15:58 Temperature 36.8 C 11/02/20 15:58 Temperature Source Skin 11/02/20 15:58 Pulse 139 H 11/02/20 15:58 Respiratory Rate 20 11/02/20 15:58 Blood Pressure 189/91 H 11/02/20 15:58 Blood Pressure Position Supine 11/02/20 15:58 Pulse Oximetry 96 11/02/20 15:58 Oxygen Delivery Method Room Air 11/02/20 15:58 Oxygen Flow Rate 0 11/02/20 15:58 Pain Level 0 11/02/20 15:58 Critical Care Time Critical Care Time Critical Care Time: Yes Total Critical Care Time: 45 Attestation: Patient was on telemetry monitoring, CIWA evaluations repeatedly IV fluid hydration, IV Ativan administration, close observation, admission
[2020-11-02] MEDS: Normal Saline 500 ML IV (16:35)
[2020-11-02 16:39] LABS: Abs Immature Grans 0.01 10^3/uL (0.0-0.06); Absolute Basophil Count 0.02 10^3/uL (0.0-0.2); Absolute Lymphocyte Count 1.06 10^3/uL (1.2-3.4); Absolute Monocyte Count 0.43 10^3/uL (0.1-0.8); Absolute Neutrophil Count 4.44 10^3/uL (1.2-6.7); Basophils % 0.3; HCT 39.4 % (36.0-46.0); HGB 12.8 g/dL (11.2-15.7); Immature Grans % 0.2; Lymphocytes % 17.8; MCH 32.5 pg (27.0-33.0); MCHC 32.5 % (32.0-36.0); MPV 8.8 fL (8.0-11.0); Monocytes % 7.2; Neutrophils % 74.5; Nucleated RBC 0 %; Platelet Count 343 10^3/uL (130-400); RBC 3.94 10^6/uL (3.93-5.22); RDW 14.1 % (11.7-14.6); WBC 5.96 10^3/uL (4.4-10.8)
[2020-11-02] MEDS: diphenhydrAMINE 50 MG/ML VIAL 25 MG IVP (16:40)
[2020-11-02] MEDS: LORazepam 2 MG/ML VIAL 0.5 MG IVP (16:45)
[2020-11-02 16:59] LABS: ALT 84 U/L (14-59); AST 66 U/L (15-37); Albumin 3.8 g/dL (3.4-5.0); Alkaline Phosphatase 156 U/L (46-116); Anion Gap 19.7 mmol/L (3-11); BUN 16 mg/dL (7-18); Bilirubin, Total 0.7 mg/dL (0.2-1.0); CO2 19.3 mmol/L (21.0-32.0); CREATININE 1.1 mg/dL (0.55-1.02); Calcium 10.3 mg/dL (8.5-10.1); Chloride 102 mmol/L (98-107); ETHANOL BLOOD 17.2 mg/dL (<3); Estimated GFR 48.55 (mL/min/1.73m2); Glucose 168 mg/dL (74-106); Lipase 56 U/L (73-393); NT-proBNP 88 pg/mL (<300); Potassium 3.6 mmol/L (3.5-5.1); Sodium 141 mmol/L (136-145); Total Protein 7.9 g/dL (6.4-8.2)
[2020-11-02 17:01] LABS: Troponin I < 0.05 ng/mL (<0.06)
[2020-11-02] MEDS: Omnipaque 350 MG/ML 100 ML BTL IJ (17:26)
[2020-11-02] MEDS: Normal Saline - Diluent 50 ML VIAL IV (17:32)
[2020-11-02] MEDS: Normal Saline Flush 10 ML SYR IVP (17:33)
[2020-11-02 17:43] LABS: BE (Venous) 0 mmol/L (-2-3); HCO3 (Venous) 24 mmol/L (23-28); O2 Sat (Venous) 69 %; TCO2 (Venous) 23 mmol/L (24-29); pCO2 (Venous) 38 mmHg (41-51); pH (Venous) 7.42 (7.31-7.41); pO2 (Venous) 38 mmHg
[2020-11-02 17:45] LABS: Lactate 5.6 mmol/L (0.6-1.4)
[2020-11-02] MEDS: LORazepam 2 MG/ML VIAL 1 MG IVP ×2 (18:05→18:55)
[2020-11-02] MEDS: Normal Saline 1,000 ML 1000 ML IV (18:10)
[2020-11-02 18:18] LABS: Magnesium 1.8 mg/dL (1.8-2.4)
[2020-11-02] MEDS: LORazepam 2 MG/ML VIAL IVP (18:33)
--- NOTE | 2020-11-02 18:58 | DI.VRAD_ITS ---
PROCEDURE INFORMATION: Exam: CT Angiography Chest With Contrast Exam date and time: 11/02/2020 5:23 PM Age: 75 years old Clinical indication: Shortness of breath; Other: Tachy TECHNIQUE: Imaging protocol: Computed tomographic angiography of the chest with contrast. 3D rendering (Not supervised by radiologist): MIP and/or 3D reconstructed images were created by the technologist. Contrast material: OMNIPAQUE 350; Contrast volume: 100 ml; Contrast route: INTRAVENOUS (IV); COMPARISON: CT CHEST PE ABD PELVIS W 06/30/2019 5:48 PM FINDINGS: Pulmonary arteries: Contrast fills the pulmonary artery and its branch vessels satisfactorily. No intraluminal filling defect to suggest pulmonary embolism. Aorta: Mild fusiform aneurysmal dilatation of the ascending thoracic aorta measuring up to 4.1 cm. No dissection. Lungs: Single spiculated ground-glass nodule in the posterior right apex which appears inflammatory. Linear posterior left upper lobe atelectasis. Multiple foci atelectasis involving the posterior bilateral lower lobes as well as the lingula. Pleural spaces: Unremarkable. No pneumothorax. No pleural effusion. Heart: Moderate cardiomegaly. Mediastinal space: Small hiatal hernia. Lymph nodes: Unremarkable. No enlarged lymph nodes. Bones/joints: Multiple old healed posterior and lateral bilateral rib fractures. No acute rib fractures. Soft tissues: Unremarkable. IMPRESSION: 1. No pulmonary embolus. 2. Nonspecific posterior right apical spiculated ground-glass nodule. Finding may represent a focus of atypical pneumonia or chronic scarring. Multiple posterior left upper lobe, bilateral lower lobe and lingular foci of atelectasis. 3. Cardiomegaly. 4. Mild aneurysmal dilatation of the thoracic ascending aorta 4.1 cm. No thoracic aortic dissection. 5. Small hiatal hernia PROCEDURE INFORMATION: Exam: CT Angiography Abdomen With Contrast Exam date and time: 11/02/2020 5:23 PM Age: 75 years old Clinical indication: Shortness of breath; Other: Tachy TECHNIQUE: Imaging protocol: Computed tomographic angiography images of the abdomen with intravenous contrast material. 3D rendering (Not supervised by radiologist): MIP and/or 3D reconstructed images were created by the technologist. Contrast material: OMNIPAQUE 350; Contrast volume: 100 ml; Contrast route: INTRAVENOUS (IV); COMPARISON: CT CHEST PE ABD PELVIS W 06/30/2019 5:48 PM FINDINGS: Aorta: No aortic aneurysm. No aortic dissection. Patent bilateral common iliac, external iliac, and internal iliac arteries. Celiac trunk and mesenteric arteries: The celiac artery is widely patent without evidence for focal stenosis or thrombosis. Incidental note is made of an accessory right hepatic artery arising from the widely patent SMA. Normal BROOKE. Renal arteries: No occlusion or significant stenosis. Liver: Normal. No mass. Gallbladder and bile ducts: Normal. No calcified stones. No ductal dilation. Pancreas: Normal. No ductal dilation. Spleen: Normal. No splenomegaly. Adrenals: Normal. No mass. Kidneys and ureters: Multiple stable bilateral simple and scattered hyperdense renal cortical cysts. Coarse calcifications in the bilateral renal ostia, right greater than left with single arteries to each kidney. Stomach and bowel: In addition, there is a mid jejunal mass measuring 2.5 cm on series 13, image 34 without evidence for upstream bowel dilatation. No bowel obstruction. Appendix: Normal appendix. No appendicitis. Lymph nodes: Unremarkable. No enlarged lymph nodes. Intraperitoneal space: Unremarkable. No free air. No significant fluid collection. Bones/joints: Multilevel degenerative changes in the lumbar spine with disc space narrowing at multiple levels. Chronic retrolisthesis of L2 over L3 by 6 mm. Chronic anterolisthesis of L4 over L5 by 7 mm. No new compression fractures. No lytic or blastic osseous lesions. Soft tissues: Two lobulated presacral masses. The larger measures 2.6 x 3.2 cm. The right superior and lateral smaller mass measures 1.6 x 2.2 cm. IMPRESSION: 1. Normal CT angiogram of the abdomen and pelvis. No evidence for abdominal aortic aneurysm or dissection. No significant stenosis or thrombosis. 2. Small bowel mass measuring 2.5 cm in the mid jejunum. Recommend Gastroenterology consultation. 3. Multiple lobulated presacral masses. Recommend pelvic MRI for further characterization. 4. Multiple stable bilateral simple renal cortical cysts. Some appear hyperdense with calcific or hemorrhagic internal findings. The study was personally discussed on the telephone with Monica Taveras on 11/02/2020 6:55 PM EST. The results were understood and acknowledged. Dictated and Authenticated by: Sylvia Keenan MD. Ordering:RIZWAN Anderson MD
--- NOTE | 2020-11-02 19:55 | HPE_ITS ---
Date of service: 11/02/20 Time of Service: 19:55 Assessment and Plan Assessment and plan (1) Alcohol withdrawal: Status: Acute Assessment and plan: probable early alcohol withdrawal. Whether the hyperdynamic status is due to this or beta j luis rebound, or both is unknown. The lactic acidosis is presumably on the basis of alcohol, suffice to say no other cause apparent as there are no signs of hypoperfusion. The pruritus remains nonspecific, and I would advise trial systemic meds. 1. Alcohol: banana bag, CIWA plus scheduled Librium, IVF, beta j luis 2. Pruritus: trial Vistaril HTN/sinus tachycardia: as above, beta j luis, plus usual Norvasc. Will hold HCTZ while we are hydrating. History of Present Illness History of Present Illness Chief Complaint: itching Narrative: 75 female with h/o alcogol abuse and chronic pruritus of unspecified etiology, on various topical treatments. Here with ongoing pruritus. Denies rash or new meds. In ER findings of note for sinus tachycardia, hypertension, normal CBC, HCO3 19 with Lactate 5.6, with VBG of pH 7.42 and pCO2 42; TAs approx 1.5 x normal, more or less her baseline, T bili 0.7, and alcohol 17.2. Due to concerns about withdrawal, as well as elevated lactate I was asked to admit. Patient states last drink last night. Has not taken anything for pruritus. Review of Systems All systems reviewed & are unremarkable except as noted in HPI and below PFSH Medical History Adjustment disorder with depressed mood AMBER (acute kidney injury) Alcohol abuse Alcoholic gastritis without bleeding Alcoholic ketosis Allergic rhinitis Anemia (12/20/16) Back pain, chronic Calcific tendinitis of left shoulder CAP (community acquired pneumonia) Cataract (11/07/15) Cervical radicular pain neck pain and DJD [facility] 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) pls refrain from alcohol Chronic alcoholism she will not stop drinking unless she checks with me, so that we can help her avert withdrawal I do not think she is capable on her own--she would need placement to achieve required goal of 3 months of sobriety Chronic diarrhea Closed displaced fracture of proximal phalanx of right index finger with routine healing (06/03/17) Closed right humeral fracture Contusion of left little finger Corneal ulcer, right (~08/23/18) 08/23/18; [facility] Dehydration Depression Diarrhea Discharge planning issues DVT prophylaxis Dystrophic nail Elev transaminase/LDH due to alcohol Epigastric abdominal pain Fall as cause of accidental injury at home as place of occurrence Genital herpes simplex recurrent gential; suppressive Valtrex GERD (gastroesophageal reflux disease) GI bleed (12/20/16) Head contusion Headache History of alcohol abuse Humerus fracture (09/12/19) Right Hyperlipidemia Hypertension Incidental lung nodule, greater than or equal to 8mm 1cm, spiculated, stable for many years, recommend f/u in 6 mo Macrocytosis (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 Multiple rib fractures 03/11/19 [facility] Nausea and vomiting in adult Non-cardiac chest pain (09/21/16) [facility] 09/21/16 NEGATIVE MP Osteoarthritis Osteopenia Palliative care patient (03/21/17) Pancreatitis, alcoholic, acute Peripheral edema Pleural effusion on left 03/11/19 [facility] Presacral mass (~09/15/18) 09/15/18 [facility] Right rib fracture Sacral mass Sciatica right, epidural injuections [facility] Tendinitis of left rotator cuff Tubular adenoma of colon (01/28/17) Urinary incontinence 01/24/13 urethral suspension and sling at [facility] (bladder suspension 1991) UTI (urinary tract infection) 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 Bladder repair. Ligation of fallopian tube Repair bladder injury, simple Family History Mother No problems noted. Father , DROWNED at age 50. No problems noted. Sister Personal history of malignant neoplasm MELANOMA Sister No problems noted. Grandfather Personal history of malignant neoplasm STOMACH Grandfather Personal history of malignant neoplasm PROSTATE Grandmother Heart disease LA Acute ill-defined cerebrovascular disease Grandmother Personal history of malignant neoplasm UTERINE Aunt , LA Heart disease LA Aunt , LA Heart disease Brother No problems noted. Social History Smoking/Tobacco Use Status: Former Tobacco Use Quit Date: 08/05/20 Smoking risk assessment performed?: Yes Alcohol Intake: current Alcohol Intake frequency: 0-2 drinks per day Alcohol type: hard liquor Drug use: Never Substance use type: does not use Current gender identity: female Do you feel safe at home: Yes Do you feel safe in your relationship?: Yes Meds Home Medications and Allergies Allergies Allergy/AdvReac Type Severity Reaction Status Date / Time Penicillins Allergy Mild Rash Verified 11/02/20 16:03 ramipril Allergy Unknown ITCHING Verified 11/02/20 16:03 meperidine [From Demerol] AdvReac Severe Nausea Verified 11/02/20 16:03 bupropion AdvReac Mild GI upset Verified 11/02/20 16:03 AMBER Inhibitors AdvReac Unknown COUGH Verified 11/02/20 16:03 alendronate sodium AdvReac Unknown GI Distress Verified 11/02/20 16:03 clarithromycin AdvReac Unknown intolerant Verified 11/02/20 16:03 paroxetine AdvReac Unknown Diarrhea Verified 11/02/20 16:03 Home Medications Medication Instructions Recorded Confirmed Type Refresh Plus 1 drp OU Q4H WHILE AWAKE #30 each 06/20/19 11/02/20 Rx magnesium oxide 400 mg PO BID #180 cap 07/17/19 11/02/20 Rx food supplemt, lactose-reduced 414 ml PO DAILY #85208 ml 08/24/19 11/02/20 Rx dicyclomine 10 mg capsule 10 mg PO QID PRN #40 cap 11/06/19 11/02/20 Rx sucralfate 1 gram tablet 1 g PO AC & HS #120 tab 11/06/19 11/02/20 Rx ipratropium 0.5 mg-albuterol 3 mg 3 ml IH QID PRN #90 ml 01/04/20 11/02/20 Rx (2.5 mg base)/3 mL nebulization soln fluticasone propionate 50 1 spray NS daily prn #9.9 ml 03/25/20 11/02/20 Rx mcg/actuation nasal spray,suspension Bio-K plus 1 cap PO DAILY #60 cap 05/12/20 11/02/20 Rx ascorbic acid (vitamin C) [Vitamin 500 mg PO BID #30 tab 05/12/20 11/02/20 Rx C] celecoxib 100 mg capsule 100 mg PO BID #60 cap 06/13/20 11/02/20 Rx lifitegrast 5 % eye drops in a 1 drp OPHTHALMIC (EYE) BID 08/05/20 11/02/20 History dropperette sennosides [Senokot] 8.6 mg PO PRN PRN 08/08/20 11/02/20 History chlordiazepoxide HCl 25 mg PO Q12H #7 cap 08/09/20 11/02/20 Rx cholestyramine (with sugar) 4 gram 1 pwd PO BID #378 g 08/27/20 11/02/20 Rx oral powder amlodipine 10 mg tablet 10 mg PO DAILY #90 tab 09/05/20 11/02/20 Rx folic acid 1 mg tablet 1 mg PO DAILY #90 tab 09/05/20 11/02/20 Rx gabapentin 300 mg capsule 300 mg PO BID #90 cap 09/05/20 11/02/20 Rx hydrochlorothiazide 12.5 mg tablet 12.5 mg PO DAILY #90 tab 09/05/20 11/02/20 Rx metoprolol tartrate 50 mg tablet 50 mg PO BID #180 tab 09/05/20 11/02/20 Rx multivitamin 1 tab PO DAILY #90 tab 09/05/20 11/02/20 Rx pantoprazole 40 mg tablet,delayed 40 mg PO DAILY #90 tab 09/05/20 11/02/20 Rx release potassium chloride 10 mEq 10 meq PO DAILY #90 tab 09/05/20 11/02/20 Rx tablet,extended release(part/cryst) thiamine HCl (vitamin B1) 100 mg 100 mg PO DAILY #90 tab 09/05/20 11/02/20 Rx tablet venlafaxine 150 mg 150 mg PO DAILY #30 cap 09/05/20 11/02/20 Rx capsule,extended release 24 hr venlafaxine 37.5 mg 37.5 mg PO DAILY #30 cap 09/05/20 11/02/20 Rx capsule,extended release 24 hr doxepin 3 mg tablet 3 mg PO BID PRN #30 tab 10/15/20 11/02/20 Rx hydroxyzine HCl 25 mg tablet 25 mg PO TID PRN #30 tab 10/17/20 11/02/20 Rx cyclosporine [Restasis] 0.4 ml OU BID #10 ea 10/25/20 11/02/20 Rx diphenhydramine HCl 25 mg PO Q4H PRN PRN #20 cap 10/25/20 11/02/20 Rx hydrocortisone 0 g TOPICAL TID #1 applic 10/25/20 11/02/20 Rx lanolin ydjrgjm-ls-o.pet-ceres 0 g TOPICAL TID #1 unit 10/25/20 11/02/20 Rx [Eucerin] Exam Narrative Exam Narrative: 170/89, 125, 36.8, 20, 95% RA. HEENT atraumatic; neck supple; lungs clear; heart tachy/regular; abdomen soft and NT; extremities trace edema; neuro Ox3, tremulous, moves all 4s; skin no rash, scattered excoriated maculo- papules. Results Labs Result diagrams: 11/02/20 16:30 11/02/20 16:30 Labs: Laboratory Results - last 24 hr 11/02/20 11/02/20 11/02/20 16:30 16:30 16:30 WBC 5.96 RBC 3.94 Hgb 12.8 Hct 39.4 MCV 100.0 H MCH 32.5 MCHC 32.5 RDW 14.1 Plt Count 343 D MPV 8.8 Immature Gran % 0.2 Neutrophils % 74.5 Lymphocytes % 17.8 Monocytes % 7.2 Eosinophils % 0.0 Basophils % 0.3 Nucleated RBC % 0 Absolute Neutrophils 4.44 Absolute Lymphocytes 1.06 L Absolute Monocytes 0.43 Absolute Eosinophils 0.00 Absolute Basophils 0.02 VBG pH VBG pCO2 VBG pO2 VBG HCO3 VBG Total CO2 VBG O2 Saturation VBG Base Excess VBG Lactate Sodium 141 Potassium 3.6 Chloride 102 Carbon Dioxide 19.3 L Anion Gap 19.7 H BUN 16 Creatinine 1.1 H Estimated GFR/1.73 m2 48.55 Glucose 168 H Calcium 10.3 H Magnesium 1.8 Total Bilirubin 0.7 AST 66 H ALT 84 H Alkaline Phosphatase 156 H Troponin I < 0.05 NT-Pro-B Natriuret Pep 88 Total Protein 7.9 Albumin 3.8 Lipase 56 Ethyl Alcohol 17.2 COVID-19 Source 11/02/20 11/02/20 11/02/20 17:37 17:37 19:17 WBC RBC Hgb Hct MCV MCH MCHC RDW Plt Count MPV Immature Gran % Neutrophils % Lymphocytes % Monocytes % Eosinophils % Basophils % Nucleated RBC % Absolute Neutrophils Absolute Lymphocytes Absolute Monocytes Absolute Eosinophils Absolute Basophils VBG pH 7.42 H VBG pCO2 38 L VBG pO2 38 VBG HCO3 24 VBG Total CO2 23 L VBG O2 Saturation 69 VBG Base Excess 0 VBG Lactate 5.6 H* Sodium Potassium Chloride Carbon Dioxide Anion Gap BUN Creatinine Estimated GFR/1.73 m2 Glucose Calcium Magnesium Total Bilirubin AST ALT Alkaline Phosphatase Troponin I NT-Pro-B Natriuret Pep Total Protein Albumin Lipase Ethyl Alcohol COVID-19 Source Nasopharyx Last Vital Signs Temp 36.8 C 11/02/20 15:58 Pulse 125 H 11/02/20 19:01 Resp 20 11/02/20 15:58 BP 170/89 H 11/02/20 19:01 Pulse Ox 95 11/02/20 19:01 COVID-19 Screening Have you, or household traveled for leisure in last 14 days?: No Had IN PERSON contact w/suspected or confirmed C-19 person: No
[2020-11-02 20:01] LABS: COVID-19 PCR Negative (Negative); Influenza A PCR Negative (Negative); Influenza B PCR Negative (Negative); RSV PCR Negative (Negative)
[2020-11-02] MEDS: chlordiazePOXIDE 25 MG CAP (20:48)
[2020-11-02] MEDS: Metoprolol 50 MG TAB PO (20:49)
[2020-11-02] MEDS: MAGNESIUM SULFATE 8.12 MEQ, MULTIVITAMIN 10 ML, THIAMINE 100 MG, FOLIC ACID 1 MG in Nor... 168.867 MG IV (20:49)
[2020-11-03] MEDS: LORazepam 1 MG TAB PO/SL (00:56)
[2020-11-03] MEDS: Lactated Ringers 1,000 ML 125 ML IV (02:48)
[2020-11-03] MEDS: Normal Saline Flush 10 ML SYR IVP (02:48)
[2020-11-03 07:25] LABS: Lactate 1.5 mmol/L (0.6-1.4)
[2020-11-03 07:33] LABS: Anion Gap 8.2 mmol/L (3-11); BUN 7 mg/dL (7-18); CO2 27.8 mmol/L (21.0-32.0); CREATININE 0.6 mg/dL (0.55-1.02); Calcium 8.8 mg/dL (8.5-10.1); Chloride 102 mmol/L (98-107); Glucose 116 mg/dL (74-106); Sodium 138 mmol/L (136-145)
[2020-11-03 07:38] LABS: Potassium 2.9 mmol/L (3.5-5.1)
[2020-11-03 07:46] VITALS: BP 174/99; PULSE 98; RESP 17; TEMP 36.4; O2SAT 98
[2020-11-03] MEDS: Gabapentin 300 MG CAP PO ×2 (09:33→20:02)
[2020-11-03] MEDS: chlordiazePOXIDE 25 MG CAP PO ×4 (09:33→20:01)
[2020-11-03] MEDS: Venlafaxine 37.5 MG CAPCR PO (09:33)
[2020-11-03] MEDS: Celecoxib 100 MG CAP PO ×2 (09:33→20:01)
[2020-11-03] MEDS: amLODIPine 10 MG TAB PO (09:34)
[2020-11-03] MEDS: Venlafaxine 150 MG CAPCR PO (09:34)
[2020-11-03] MEDS: Pantoprazole 40 MG TABCR PO (09:34)
[2020-11-03] MEDS: Potassium Chloride 10 MEQ TABCR PO (09:34)
[2020-11-03] MEDS: Metoprolol 50 MG TAB PO ×2 (09:34→20:02)
[2020-11-03] MEDS: Thiamine 100 MG TAB PO (09:34)
[2020-11-03] MEDS: POTASSIUM CHLORIDE 10 MEQ/100 ML BAG 100 MEQ IVPB ×3 (09:35→12:15)
[2020-11-03] MEDS: Cholestyramine/Aspartame PKT 1 EACH PO ×2 (09:35→18:15)
--- NOTE | 2020-11-03 12:35 | W.PM.PROGNOT ---
Date of Service Date of service: 11/03/20 Time of Service: 12:36 Assessment and Plan Assessment and plan (1) Alcohol withdrawal: Status: Acute Assessment and plan: It is unclear if her presentation represents ETOH withdrawal or not. She reports that her last alcoholic beverage was 3 days ago. She is on scheduled librium 25 mg PO QID and she is being monitored on the CIWA protocol for withdrawal. She has scored 0 and 7 today. She has not required lorazepam today. Her lactic acidosis is likely related to her alcohol abuse, improvement noted today. Continue to monitor. (2) Hypokalemia: Status: Acute Assessment and plan: Replete and monitor. (3) Pruritus: Status: Acute Assessment and plan: She continues to report pruritus. Hydroxozyine ordered, she has not taken it yet. (4) Fall: Status: Acute Assessment and plan: She has had multiple falls in the past. PT ordered. (5) DVT prophylaxis: Status: Acute Assessment and plan: subcutaneous heparin. Subjective Subjective Interval history since last seen: Leticia reports that she is itchy all over, she has hydroxyzine ordered but has not yet taken it. She reports nausea but she ate all of her breakfast and denies vomiting. She has moved her bowels. She reports that she had her last alcoholic beverage 3 days ago. She has scored 0 and 7 on the CIWA scale. She scored for mild anxiety, tremors, headache and tactile disturbances (ie: itching), many of these symptoms appear to be chronic. She states she has not been out of bed yet today. Her potassium was low and is being replaced. She denies SOB, coughing, wheezing, CP/pressure, palpations. Exam Narrative Exam Narrative: General: elderly lady, laying in bed with eyes closed, awakened to verbal stimuli, answers questions appropriately. HEENT: normocephalic, atraumatic, eyes remained closed for most of the visit, mucous membranes moist. Neck: supple. Cardiovascular: heart sounds regular. Respiratory: respirations appear even and unlabored, fine rales to left base. GI: +BS, tenderness noted on palpation of the left side of her abdomen, nondistended. Extremities: no edema. Objective Last Vital Signs Temp 36.4 C L 11/03/20 07:46 Pulse 98 H 11/03/20 07:46 Resp 17 11/03/20 07:46 BP 174/99 H 11/03/20 07:46 Pulse Ox 98 11/03/20 07:46 Laboratory Results - last 24 hr 11/02/20 11/02/20 11/02/20 16:30 16:30 16:30 WBC 5.96 RBC 3.94 Hgb 12.8 Hct 39.4 MCV 100.0 H MCH 32.5 MCHC 32.5 RDW 14.1 Plt Count 343 D MPV 8.8 Immature Gran % 0.2 Neutrophils % 74.5 Lymphocytes % 17.8 Monocytes % 7.2 Eosinophils % 0.0 Basophils % 0.3 Nucleated RBC % 0 Absolute Neutrophils 4.44 Absolute Lymphocytes 1.06 L Absolute Monocytes 0.43 Absolute Eosinophils 0.00 Absolute Basophils 0.02 VBG pH VBG pCO2 VBG pO2 VBG HCO3 VBG Total CO2 VBG O2 Saturation VBG Base Excess VBG Lactate Sodium 141 Potassium 3.6 Chloride 102 Carbon Dioxide 19.3 L Anion Gap 19.7 H BUN 16 Creatinine 1.1 H Estimated GFR/1.73 m2 48.55 Glucose 168 H Calcium 10.3 H Magnesium 1.8 Total Bilirubin 0.7 AST 66 H ALT 84 H Alkaline Phosphatase 156 H Troponin I < 0.05 NT-Pro-B Natriuret Pep 88 Total Protein 7.9 Albumin 3.8 Lipase 56 Ethyl Alcohol 17.2 COVID-19 Source SARS-CoV-2 (PCR) Influenza Type A (PCR) Influenza Type B (PCR) RSV (PCR) 11/02/20 11/02/20 11/02/20 17:37 17:37 19:17 WBC RBC Hgb Hct MCV MCH MCHC RDW Plt Count MPV Immature Gran % Neutrophils % Lymphocytes % Monocytes % Eosinophils % Basophils % Nucleated RBC % Absolute Neutrophils Absolute Lymphocytes Absolute Monocytes Absolute Eosinophils Absolute Basophils VBG pH 7.42 H VBG pCO2 38 L VBG pO2 38 VBG HCO3 24 VBG Total CO2 23 L VBG O2 Saturation 69 VBG Base Excess 0 VBG Lactate 5.6 H* Sodium Potassium Chloride Carbon Dioxide Anion Gap BUN Creatinine Estimated GFR/1.73 m2 Glucose Calcium Magnesium Total Bilirubin AST ALT Alkaline Phosphatase Troponin I NT-Pro-B Natriuret Pep Total Protein Albumin Lipase Ethyl Alcohol COVID-19 Source Nasopharyx SARS-CoV-2 (PCR) Negative Influenza Type A (PCR) Negative Influenza Type B (PCR) Negative RSV (PCR) Negative 11/03/20 11/03/20 07:16 07:16 WBC RBC Hgb Hct MCV MCH MCHC RDW Plt Count MPV Immature Gran % Neutrophils % Lymphocytes % Monocytes % Eosinophils % Basophils % Nucleated RBC % Absolute Neutrophils Absolute Lymphocytes Absolute Monocytes Absolute Eosinophils Absolute Basophils VBG pH VBG pCO2 VBG pO2 VBG HCO3 VBG Total CO2 VBG O2 Saturation VBG Base Excess VBG Lactate 1.5 H Sodium 138 Potassium 2.9 L Chloride 102 Carbon Dioxide 27.8 Anion Gap 8.2 BUN 7 Creatinine 0.6 D Estimated GFR/1.73 m2 >= 60.00 Glucose 116 H Calcium 8.8 Magnesium Total Bilirubin AST ALT Alkaline Phosphatase Troponin I NT-Pro-B Natriuret Pep Total Protein Albumin Lipase Ethyl Alcohol COVID-19 Source SARS-CoV-2 (PCR) Influenza Type A (PCR) Influenza Type B (PCR) RSV (PCR)
[2020-11-03] MEDS: Heparin 5,000 UNITS/ML VIAL 5000 UNITS SC (14:20)
--- NOTE | 2020-11-03 14:40 | IN_ITS ---
Date of service: 11/03/20 Time of Service: 03:22 PT Notes Visit Reasons: ALCOHOL WITHDRAWAL, PRURITUS Physical Therapy Inpatient Initial Evaluation Date: 11/03/2020 Referring Doctor: Jessie Cowan NP PT Orders: PT CONSULT: strengthening, balance, mobility Precautions: Fall. Standard. on CIWA protocol. Activity as tolerated. Patient Profile/Admitting Diagnosis: Leticia is a 75-year-old female with past medical history significant for chronic aloholism and repeated falls who presented to the ED on 11/02/2020 due to significant itching. She is diagnosed with ETOH wtithrawal, hypokalemia, pruritus, and fall. PMHX: Medical History Adjustment disorder with depressed mood AMBER (acute kidney injury) Alcohol abuse Alcoholic gastritis without bleeding Alcoholic ketosis Allergic rhinitis Anemia (12/20/16) Back pain, chronic Calcific tendinitis of left shoulder CAP (community acquired pneumonia) Cataract (11/07/15) Cervical radicular pain neck pain and DJD [facility] 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) pls refrain from alcohol Chronic alcoholism she will not stop drinking unless she checks with me, so that we can help her avert withdrawal I do not think she is capable on her own--she would need placement to achieve required goal of 3 months of sobriety Chronic diarrhea Closed displaced fracture of proximal phalanx of right index finger with routine healing (06/03/17) Closed right humeral fracture Contusion of left little finger Corneal ulcer, right (~08/23/18) 08/23/18; [facility] Dehydration Depression Diarrhea Discharge planning issues DVT prophylaxis Dystrophic nail Elev transaminase/LDH due to alcohol Epigastric abdominal pain Fall as cause of accidental injury at home as place of occurrence Genital herpes simplex recurrent gential; suppressive Valtrex GERD (gastroesophageal reflux disease) GI bleed (12/20/16) Head contusion Headache History of alcohol abuse Humerus fracture (09/12/19) Right Hyperlipidemia Hypertension Incidental lung nodule, greater than or equal to 8mm 1cm, spiculated, stable for many years, recommend f/u in 6 mo Macrocytosis (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 Multiple rib fractures 03/11/[facility] Nausea and vomiting in adult Non-cardiac chest pain (09/21/16) [facility] 09/21/16 NEGATIVE MP Osteoarthritis Osteopenia Palliative care patient (03/21/17) Pancreatitis, alcoholic, acute Peripheral edema Pleural effusion on left 03/11/19 [facility] Presacral mass (~09/15/18) 09/15/18 [facility] Right rib fracture Sacral mass Sciatica right, epidural injuections [facility] Tendinitis of left rotator cuff Tubular adenoma of colon (01/28/17) Urinary incontinence 01/24/13 urethral suspension and sling at [facility] (bladder suspension 1991) UTI (urinary tract infection) 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 Bladder repair. Ligation of fallopian tube Repair bladder injury, simple Social History/Home Situation: Leticia lives in a private home in [place], [place]. She has a caregiver who comes in daily 4 days per week for 2 hours each time to assist with laundry, minor house chores, and grocery shopping. Patient is independent with MRADLs using a front wheeled walker. She receives meals on wheels. She no longer drives. Equipment Owned/DME: FWW, SC, grab bars, emergency alert device Subjective: Patient is agreeable to PT consult. She states that her back is still ithcy and achy. Appears tired. Reports that her HH services stopped due to insurance issues. She states that she now pays privately for the caregiver who comes to help her 4x/week. Complains of a mild headache. Denies chest pain and dizziness. Objective: General Observation: No eye patch on the right. No lines seen. Mental Status: Alert and oriented as to person, place, time, and purpose Pain: 3-4/10 in low back ROM: Right Upper Extremity: Shoulder Flexion allows up to 70 degrees. Shoulder abduction allows up to 50 degrees. Elbow flexion WFL. Wrist flexion WFL. Functional opening and closing of hand WFL. Left Upper Extremity: Shoulder Flexion allows up to 80 degrees. Shoulder abduction allows up to 60 degrees. Elbow flexion WFL. Wrist flexion WFL. Functional opening and closing of hand WFL. Right Lower Extremity: Hip flexion allows up to 20 degrees beyond 90 while seated at edge of bed. Hip abduction WFL. Knee flexion 30-90 degrees. Knee extension -30 degrees. Ankle dorsiflexion WFL. Ankle plantarflexion WFL. Left Lower Extremity: Hip flexion allows up to 20 degrees beyond 90 while seated at edge of bed. Hip abduction WFL. Knee flexion 30-90 degrees. Knee extension - 30 degrees. Ankle dorsiflexion WFL. Ankle plantarflexion WFL. Strength: Right Upper Extremity: Shoulder flexors 3-/5. Shoulder abductors 3-/5. Elbow flexors 4/5. Elbow extensors 4/5. Creping Machine Operator strong. Left Upper Extremity: Shoulder flexors 3-/5. Shoulder abductors 3-/5. Elbow flexors 4/5. Elbow extensors 4/5. Creping Machine Operator strong. Right Lower Extremity: Hip flexors 3-/5. Hip abductors 4-/5. Knee flexors 3-/5. Knee extensors 3-/5. Ankle dorsiflexors 4-/5. Ankle plantarflexors 4-/5. Left Lower Extremity: Hip flexors 3-/5. Hip abductors 4-/5. Knee flexors 3-/5. Knee extensors 3-/5. Ankle dorsiflexors 4-/5. Ankle plantarflexors 4-/5. Bed Mobility/Transfers: Supine to sit minimal assist with HOB at 30 degrees Sit to supine minimal assist Sit to stand contact guard assist Stand to sit stand by assist Bed to chair contact guard assist Gait: Patient exhibited reciprocal gait for 15 feet +20 feet +35 feet using a FWW with mild breathlessness and report of fatigue after activity requiring CGA from PT. Decreased violeta. Decreased step length and height. Balance: Static Sitting: Good Dynamic Sitting: Good Static Standing: Fair Dynamic Standing: Fair Special Tests: Mobility Limitations Standardized Measure [facility] 6 clicks Basic Mobility Inpatient Short Form: Raw Score: 18 CMS Score: 47% deficit Informed Consent/Education: Patient instructed in purpose of PT consult and plan of care. Assessment: Patient demonstrates generalized weakness, functional mobility prior requiring the need for front wheeled walker for all mobility ADL perform this, difficulty with walking with walking, impairment with balance, and increased fall risk resulting from current diagnoses. She will benefit from PT services to address impairments and functional limitations listed below. Patient presents with clinical signs and symptoms consistent with current/admitting diagnoses that have resulted to mobility limitations, gait instability, generalized weakness, and impairment of motor control as demonstrated by the following impairment level findings: 1. Decreased strength to B UE/LE major muscle groups 2. Impaired standing balance 3. Impaired activity tolerance 4. Headache and fatigue affecting ambulation distance Impairments are contributing to the following functional limitations: 1. Increased dependence with transfers 2. Inability to safely ambulate without assistive device and physical assistance 3. Increase completion time for mobility ADL performance 4. Increased fall risk 5. Inability to negotiate steps alone safely 6. Decreased ambulation distance Patient is assessed as a [id number] moderate complexity based on the following: History: 75-year-old female with impairment level findings, functional impairments, medical history, and [place] AM PAC deficit score of 47% Examination: Demonstrable impairment in strength, balance, and range of motion with underlying impairments and functional limitations as documented above Presentation: Evolving Decision Makin moderate complexity Goals: Goals X1 week 1. Supine-Sit independent 2. Sit-Supine independent 3. Sit-Stand independent 4. Stand-Sit independent 5. Bed-Chair independent 6. Chair-Bed independent 7. Independent gait on level surface with use of straight cane for at least 300 feet without report of pain nor dyspnea 8. Independent stair negotiation while holding onto bilateral rails for at least 5 steps without report of pain nor dyspnea 9. Good static and dynamic standing balance/tolerance DISCHARGE RECOMMENDATIONS: SNF vs. HHPT TREATMENT CODE/TIME: 87599 x 20 minutes, 53795 x 10 minutes beginning at 14:40 PM. Thank you very much for this referral. Tawana Cruz PT, DPT, CLT [facility] [place], [place]
[2020-11-03 15:38] VITALS: BP 126/81; PULSE 85; RESP 18; TEMP 36.7; O2SAT 96
[2020-11-03 16:52] LABS: Potassium 3.9 mmol/L (3.5-5.1)
--- NOTE | 2020-11-03 17:20 | PDOC.CMIN ---
- If Service Date Differs Date of service: 11/03/20 Time of Service: 17:20 Care Management Initial Assess REASON FOR HOSPITALIZATION:: Alcohol Withdrawal, pruritus PAST MEDICAL HISTORY/PAST SURGICAL HISTORY:: Medical History. Adjustment disorder with depressed mood. AMBER (acute kidney injury). Alcohol abuse. Alcoholic gastritis without bleeding. Alcoholic ketosis. Allergic rhinitis. Anemia (12/20/16). Back pain, chronic. Calcific tendinitis of left shoulder. CAP (community acquired pneumonia). Cataract (11/07/15). Cervical radicular pain. neck pain and DJD. [facility]. 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). pls refrain from alcohol. Chronic alcoholism. she will not stop drinking unless she checks with me, so that we can help her avert withdrawal. I do not think she is capable on her own--she would need placement to achieve required goal of 3 months of sobriety. Chronic diarrhea. Closed displaced fracture of proximal phalanx of right index finger with routine healing (06/03/17). Closed right humeral fracture. Contusion of left little finger. Corneal ulcer, right (~08/23/18). 08/23/18; [facility]. Dehydration. Depression. Diarrhea. Discharge planning issues. DVT prophylaxis. Dystrophic nail. Elev transaminase/LDH. due to alcohol. Epigastric abdominal pain. Fall as cause of accidental injury at home as place of occurrence. Genital herpes simplex. recurrent gential; suppressive Valtrex. GERD (gastroesophageal reflux disease). GI bleed (12/20/16). Head contusion. Headache. History of alcohol abuse. Humerus fracture (09/12/19). Right. Hyperlipidemia. Hypertension. Incidental lung nodule, greater than or equal to 8mm. 1cm, spiculated, stable for many years, recommend f/u in 6 mo. Macrocytosis (09/26/14). due to alcohol. Multiple rib fractures. 03/11/19 [facility]. Nausea and vomiting in adult. Non-cardiac chest pain (09/21/16). [facility] 09/21/16 NEGATIVE MP. Osteoarthritis. Osteopenia. Palliative care patient (03/21/17). Pancreatitis, alcoholic, acute. Peripheral edema. Pleural effusion on left. 03/11/19 [facility]. 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 09/15/18 [facility]. Right rib fracture. Sacral mass. Sciatica. right, epidural injuections. [facility]. Tendinitis of left rotator cuff. Tubular adenoma of colon (01/28/17). Urinary incontinence. 01/24/13 urethral suspension and sling at [facility]. (bladder suspension 1991). UTI (urinary tract infection). Vision loss of right eye. 08/17/18;[facility]. Wernicke encephalopathy. Surgical History. Bladder Surgery. suspension. Colonoscopy - MAC (01/28/17). EGD - MAC (12/20/16). History of bilateral ligation of fallopian tubes. History of Surgical Procedure. a. Bladder repair. Ligation of fallopian tube. Repair bladder injury, simple PREVIOUS FUNCTIONAL STATUS/SOCIAL/FAMILY SUPPORTS:: Leticia lives alone with her dog and 4 cats in her own home in [place], [place]. She reports she has a sister and her sister is the one caring for her animals while she is in the hospital. Leticia also has a caregiver, Armida, who comes in four times a week for two hours a day. Leticia shares her son Seth is her DPOA. CURRENT FUNCTIONAL STATUS:: Leticia was sleeping most of the day. When CM met with her, she was awake and alert, although she stated that she was exhausted. She reported that she has been so itchy from the rash that she has that she wanted to jump off a bridge. She stated that it has been better since she has been at [facility], and she is not as itchy. She reported that she feels that she is taking her medications as prescribed. PT evaluated her and is recommending SNF vs PT. CM will discuss options with her. CM will continue to follow. ADVANCE DIRECTIVES:: DNR/COLST on file; dwayne Ingram is Health Care Agent. Has patient been provided with info about the portal/API?: Yes Did the patient sign up for the portal?: Yes (previously) CODE STATUS:: DNR/DNI INSURANCE COVERAGE / FINANCIAL ISSUES:: Wanda Tomo [employer] (commercial Medicare replacement plan) and Financial asst 85. CURRENT HOME/COMMUNITY SERVICES/EQUIPMENT:: Leticia owns a walker, a cane, and a toilet seat riser. She has a caregiver four days a week for two hours per day. PRIMARY CARE PHYSICIAN:: Lavelle Galindo MD POTENTIAL DISCHARGE NEEDS:: SNF vs HH PT, follow up appointments. PATIENT/FAMILY EDUCATION NEEDS:: Discharge instructions, limitations, follow up plan including Ask Me Three and self management. ANTICIPATED BARRIERS TO DISCHARGE:: None identified at this time. TRANSPORTATION:: [facility] private vehicle PLAN:: Leticia will return home with new orders for HH PT vs SNF for short term rehab prior to returning home. She will transport via [facility] private vehicle. She will follow up with her PCP and discharge plan of care. CM will continue to follow. Readmission - Within the Past 30 Days Yes or No: Y - Date of First Admission Date of 1st Admission: 10/22/20 - Date of this Admission Date of Admission: 11/02/20 This admission was: Through ED - Office Visit Since 1st Admission Have you seen your PCP in the office since discharge?: No Had an appointment Been Scheduled?: Yes Date of Scheduled Appointment: 11/04/20 - I. Interview patient and/or Family Difficulty reaching your doctor or getting an office appt?: No Have you had trouble purchasing/ or taking medication?: No How do you take your medications and set up your pills?: Caregiver sets up medications for Leticia Have you had trouble with getting meals at home?: No Describe your typical meals since you have been home: MOW Did you feel ready for discharge when you left the last time: No (Inpatient Psychiatric stabilization) Why did you not feel ready for discharge?: Leticia went to Inpatient psychiatric stablization from her last admission. She did not feel supported at [facility], and did not feel that it was helpful. If patient did not receive services, were there orders at: No Reason there were no orders at discharge: transferred care to [facility] for psychiatric stablization - ED visits How many ED visits in the past 12 months: 20 - Assessment for Readmission Summary of readmission circumstances, based upon interviews: Leticia was transferred to [facility] upon her last discharge from [facility], for psychiatric stabilization. Per Leticia, she feels that nothing was done for her at . She reported that there were no medication changes and she did not benefit from therapy. She was admitted for four days, and returned home with no additional services. Leticia reports feeling exhausted, and having difficulty functioning due to the severe itchiness she feels from the rashes on her skin. She reports that she is taking her medications as prescribed. Leticia has a history of ETOH use, and per her caregiver, she is not compliant with medications, although she sets them out for her. CM will ask for services upon discharge.
[2020-11-03 19:30] VITALS: BP 134/79; PULSE 88; RESP 17; TEMP 37; O2SAT 97
[2020-11-03 23:59] VITALS: BP 148/86; PULSE 72; RESP 18; TEMP 36.6; O2SAT 96
[2020-11-04] MEDS: LORazepam 1 MG TAB PO/SL (00:46)
[2020-11-04] MEDS: hydrOXYzine PAMOATE 25 MG CAP PO (00:46)
[2020-11-04] MEDS: Heparin 5,000 UNITS/ML VIAL 5000 UNITS SC ×2 (01:41→14:09)
[2020-11-04 07:16] LABS: Anion Gap 7.3 mmol/L (3-11); BUN 11 mg/dL (7-18); CO2 26.7 mmol/L (21.0-32.0); CREATININE 0.7 mg/dL (0.55-1.02); Calcium 9.2 mg/dL (8.5-10.1); Chloride 102 mmol/L (98-107); Glucose 107 mg/dL (74-106); Magnesium 1.4 mg/dL (1.8-2.4); Potassium 3.9 mmol/L (3.5-5.1); Sodium 136 mmol/L (136-145)
[2020-11-04 07:27] VITALS: BP 162/90; PULSE 81; RESP 18; TEMP 36.3; O2SAT 96
[2020-11-04] MEDS: Potassium Chloride 10 MEQ TABCR PO (08:55)
[2020-11-04] MEDS: Pantoprazole 40 MG TABCR PO (08:55)
[2020-11-04] MEDS: Metoprolol 50 MG TAB PO ×2 (08:55→19:35)
[2020-11-04] MEDS: Gabapentin 300 MG CAP PO ×2 (08:55→19:35)
[2020-11-04] MEDS: Venlafaxine 37.5 MG CAPCR PO (08:55)
[2020-11-04] MEDS: Celecoxib 100 MG CAP PO ×2 (08:55→19:35)
[2020-11-04] MEDS: Thiamine 100 MG TAB PO (08:55)
[2020-11-04] MEDS: Venlafaxine 150 MG CAPCR PO (08:55)
[2020-11-04] MEDS: chlordiazePOXIDE 25 MG CAP PO ×4 (08:55→19:35)
[2020-11-04] MEDS: amLODIPine 10 MG TAB PO (08:55)
[2020-11-04] MEDS: Cholestyramine/Aspartame PKT 1 EACH PO ×2 (10:20→19:34)
[2020-11-04] MEDS: Magnesium Oxide 400 MG TAB (12:03)
[2020-11-04] MEDS: MAGNESIUM SULFATE 4 GM/100 ML BAG 25 GM (12:03)
--- NOTE | 2020-11-04 14:15 | CHAPLAIN ---
Leticia was resting in her darkened room. She said she was tired and trying to sleep. Leticia and I know each other from previous admissions. She told me about coming here with excessive itching, then being transported to [facility] (psych unit) and returning home and then to the ER here, and being admitted. Leticia said at [facility] they washed good leather slippers which are ruined now. Leticia is usually concerned about her pets, three cats and a dog, but according to Care Management notes, Leticia's sister is caring for the animals.
--- NOTE | 2020-11-04 14:42 | NUR.NOTE ---
Nursing Note: 11/04/2020 14:43 Patient verbalized that she would like the COVID-19 vaccine and verbalized consent for COVID-19 vaccine administration. Patient signed a general vaccine consent form; patient asked which vaccine she was receiving and verbalized familiarity with Moderna and Salvatore and Salvatore vaccines. Patient was informed that she was getting a Moderna vaccine. Patient was given an emergence-use extra dose of Moderna, see MAR.
--- NOTE | 2020-11-04 15:03 | PT.INTREAT ---
Date of service: 11/04/20 Time of Service: 09:50 PT Notes Visit Reasons: ALCOHOL WITHDRAWAL, PRURITUS Inpatient Physical Therapy Treatment Note [facility] Date: 11/04/2020 PRECAUTIONS: Fall SUBJECTIVE: Leticia is agreeable to participating in PT. She reports that she has a headache, her back hurts, and that she has a stomach ache. You name it, I've got it. She reports feeling tired in the afternoon, stating I was just about to take a nap. OBJECTIVE: PAIN: See subjective portion of this note. BED MOBILITY/TRANSFERS Supine-sit: I Sit-supine: I Sit-stand: S Stand-sit: S GAIT Assistive Device: FWW Weight bearing: WBAT R Assist: S Distance: 250' in a.m.; 300' in p.m. Deviation: Slow violeta, short step height and length, path deviation to L THEREX: Patient was instructed in several lower extremity strengthening exercises, performed in a supine position in a.m., and a seated at EOB position in p.m., as per flow sheet. STAIRS: Up/down 3x4 2x6 using B rails and a step-to pattern with supervision ASSESSMENT: Patient tolerated session well, tolerating a progression in gait distance with FWW support and supervision. She demonstrates path deviation to the left throughout session, although was able to self-correct without LOB. PLAN: Continue with global strengthening and continued gait and transfer training for improved activity tolerance and continued progression toward baseline level of function. TREATMENT CODE/TIME: Session 1: 25 minutes; 15979 x2 (09:50) Session 2: 20 minutes; 92030 (14:20)
[2020-11-04 15:23] VITALS: BP 129/78; PULSE 72; RESP 16; TEMP 36.6; O2SAT 94
--- NOTE | 2020-11-04 17:16 | W.PM.PROGNOT ---
Date of Service Date of service: 11/04/20 Time of Service: 17:16 Assessment and Plan Assessment and plan (1) Alcohol withdrawal: Status: Acute Assessment and plan: It is unclear if her presentation represents ETOH withdrawal or not. She reports that her last alcoholic beverage was 3 days ago. She is on scheduled librium 25 mg PO QID and she is being monitored on the CIWA protocol for withdrawal. She has scored 0 today. She has not required lorazepam today. Her lactic acidosis is likely related to her alcohol abuse, improvement noted today. Continue to monitor. (2) Hypokalemia: Status: Acute Assessment and plan: Replete and monitor. (3) Pruritus: Status: Acute Assessment and plan: puritus is improved w/out use of atarax (4) Fall: Status: Acute Assessment and plan: She has had multiple falls in the past. PT ordered. Subjective Subjective Interval history since last seen: Patient is tolerating her diet (regular diet). No nausea or vomiting. No tremors. CIWA scores of 1. Currently on librium 25 mg qid and has prn ativan. She has not required ativan today. She has no tremors. No diaphoresis and no hallucinations. I really believe that she is not actively withdrawing from alcohol. Historically she has not had severe withdrawal and many of her symptoms are chronic. Her puritus is improved. Exam Narrative Exam Narrative: Patient is alert and oriented sitting up in bed in no discomfort. Skin is dry. Hands are nontremulous. Abdomen soft and nontender normal bowel sounds no guarding Lungs are clear to auscultation Heart regular rate and rhythm Objective Last Vital Signs Temp 36.6 C 11/04/20 15:23 Pulse 72 11/04/20 15:23 Resp 16 11/04/20 15:23 BP 129/78 11/04/20 15:23 Pulse Ox 94 11/04/20 15:23 Laboratory Results - last 24 hr 11/04/20 06:25 Sodium 136 Potassium 3.9 Chloride 102 Carbon Dioxide 26.7 Anion Gap 7.3 BUN 11 Creatinine 0.7 Estimated GFR/1.73 m2 >= 60.00 Glucose 107 H Calcium 9.2 Magnesium 1.4 L
--- NOTE | 2020-11-04 17:17 | CMPROGNOTE_ITS ---
- If Service Date Differs Date of service: 11/04/20 Time of Service: 17:17 Care Management Progress Note S/O: Leticia was sleeping throughout the day, but CM was successful in meeting with her later in the evening. She was eating her dinner, and reported that it was too spicy for her. CM discussed her discharge plan, as PT has recommended SNF vs HH PT. Leticia stated that she absolutely does NOT want to go to a SNF at this time. She believes that her itchy rash was associated with her stay at the [facility]. She reported that she still suffers from itching, but was not itching at the time of this visit. CM spoke to her RN, who stated that Leticia has not reported being itchy today. Leticia has agreed to HH PT, which CM will advocate for. CM will continue to follow. A: Leticia is a 75 year old female admitted to [facility] on 11/02/20 with alcohol withdrawal, pruritus. P: Leticia will return home with new orders for HH PT. She will transport via [facility] private vehicle. She will follow up with her PCP and discharge plan of care. CM will continue to follow.
--- NOTE | 2020-11-04 19:20 | NUR.NOTE ---
Nursing Note: 11/04/20 19:20 Any discrepancies, omissions, or errors in documentation today can be related to the code black today when [employer] and the internet were down. This limited patient care. This nurse did not have access to patient's account, MAR, orders, documentation, etc. This nurse performed patient care and documentation as accurately and timely as possible.
[2020-11-04] MEDS: Magnesium Oxide 400 MG TAB PO (21:14)
[2020-11-04 23:43] VITALS: BP 138/80; PULSE 74; RESP 17; TEMP 37.1; O2SAT 95
[2020-11-05] MEDS: Heparin 5,000 UNITS/ML VIAL 5000 UNITS SC ×2 (02:35→13:56)
[2020-11-05 08:32] VITALS: BP 132/76; PULSE 71; RESP 19; TEMP 36.6; O2SAT 96
[2020-11-05] MEDS: Cholestyramine/Aspartame PKT 1 EACH PO (09:35)
[2020-11-05] MEDS: Metoprolol 50 MG TAB PO (09:36)
[2020-11-05] MEDS: amLODIPine 10 MG TAB PO (09:36)
[2020-11-05] MEDS: chlordiazePOXIDE 25 MG CAP PO ×3 (09:37→15:53)
[2020-11-05] MEDS: Pantoprazole 40 MG TABCR PO (09:37)
[2020-11-05] MEDS: Celecoxib 100 MG CAP PO (09:37)
[2020-11-05] MEDS: Gabapentin 300 MG CAP PO (09:38)
[2020-11-05] MEDS: Venlafaxine 37.5 MG CAPCR PO (09:38)
[2020-11-05] MEDS: Magnesium Oxide 400 MG TAB PO (09:38)
[2020-11-05] MEDS: Venlafaxine 150 MG CAPCR PO (09:38)
[2020-11-05] MEDS: Potassium Chloride 10 MEQ TABCR PO (09:38)
[2020-11-05] MEDS: Thiamine 100 MG TAB PO (09:38)
--- NOTE | 2020-11-05 14:31 | DSE_ITS ---
Date of service: 11/05/20 Time of Service: 14:32 DS: Diagnosis Discharge Diagnosis (1) Alcohol withdrawal: Status: Acute (2) Hypokalemia: Status: Acute (3) Pruritus: Status: Acute (4) Fall: Status: Acute Discharge Plan Disposition Patient Disposition: HOME W/HOME HEALTH SERVICE Condition: Stable Discharge Details Reason For Visit: ALCOHOL WITHDRAWAL, PRURITUS Admit Date/Time: 11/02/20 20:12 Admit Provider: Saeed Cosme Attending Provider: Saeed Cosme Primary Care Provider: Lavelle Galindo Hospital Course Hospital Course: This is a 75 year old female well known to [facility], who presents to ED with c/o pruritus. Her work up in ED shows sinus tachy which is typical and likely d/t med non-compliance. Due to concerns of withdrawal and elevated lactate she was admitted to med/surg. She was restarted on her medication and her symptoms improved. she had no withdrawal from alcohol with ciwas of 1. she is eating and drinking and has been hemodynamically stable. She is ready for discharge to home, resumptions of home health services with addition of PT/OT. discussed with Dr Henriquez [place] Meds and New Rx's Prescriptions: Continued Xiidra 5 % dropperette 1 drp ophthalmic (eye) BID RF: 0 magnesium oxide 400 mg magnesium capsule 400 mg PO BID Qty: 180 RF: 3 celecoxib [Celebrex] 100 mg capsule 100 mg PO BID Qty: 60 RF: 2 cholestyramine (with sugar) 4 gram powder 1 pwd PO BID Qty: 378 RF: 0 Ensure Active High Protein Liquid 414 ml PO DAILY Qty: 62904 RF: 11 dicyclomine 10 mg capsule 10 mg PO QID PRN (Reason: belly pain) Qty: 40 RF: 0 sucralfate 1 gram tablet 1 g PO AC & HS Qty: 120 RF: 5 ipratropium-albuterol 0.5 mg-3 mg(2.5 mg base)/3 mL solution for nebulization 3 ml IH QID PRN (Reason: shortness of breath) Qty: 90 RF: 3 fluticasone propionate 50 mcg/actuation spray,suspension 1 spray NS daily prn Qty: 9.9 RF: 2 amlodipine 10 mg tablet 10 mg PO DAILY Qty: 90 RF: 3 gabapentin 300 mg capsule 300 mg PO BID Qty: 90 RF: 5 hydrochlorothiazide 12.5 mg tablet 12.5 mg PO DAILY Qty: 90 RF: 3 metoprolol tartrate 50 mg tablet 50 mg PO BID Qty: 180 RF: 3 multivitamin [Multiple Vitamins] Tablet 1 tab PO DAILY Qty: 90 RF: 3 pantoprazole 40 mg tablet,delayed release (DR/EC) 40 mg PO DAILY Qty: 90 RF: 3 potassium chloride [Klor-Con M10] 10 mEq tablet,ER particles/crystals 10 meq PO DAILY Qty: 90 RF: 3 venlafaxine 37.5 mg capsule,extended release 24hr 37.5 mg PO DAILY Qty: 30 RF: 11 venlafaxine 150 mg capsule,extended release 24hr 150 mg PO DAILY Qty: 30 RF: 11 thiamine HCl (vitamin B1) 100 mg tablet 100 mg PO DAILY Qty: 90 RF: 3 folic acid 1 mg tablet 1 mg PO DAILY Qty: 90 RF: 3 doxepin 3 mg tablet 3 mg PO BID PRN (Reason: itch) Qty: 30 RF: 0 hydroxyzine HCl 25 mg tablet 25 mg PO TID PRN (Reason: itching) Qty: 30 RF: 2 Refresh Plus 0.5 % Dropperette 1 drp OU Q4H WHILE AWAKE Qty: 30 RF: 0 diphenhydramine HCl 25 mg Capsule 25 mg PO Q4H PRN PRNQty: 20 RF: 0 Restasis 0.05 % Dropperette 0.4 ml OU BID Qty: 10 RF: 0 hydrocortisone 1 % Cream 0 g topical TID Qty: 1 RF: 2 Eucerin Cream 0 g topical TID Qty: 1 RF: 1 ascorbic acid (vitamin C) [Vitamin C] 500 mg Tablet 500 mg PO BID Qty: 30 RF: 0 Bio-K plus 50 billion cell Capsule,Delayed Release(Dr/Ec) 1 cap PO DAILY Qty: 60 RF: 0 sennosides [Senokot] 8.6 mg tablet 8.6 mg PO PRN PRNRF: 0 chlordiazepoxide HCl 25 mg capsule 25 mg PO Q12H Qty: 7 RF: 0 Discharge Instructions Instructions: Itchy Skin (DC) Additional Instructions: avoid alcohol resume usual medication as directed. Stand Alone Forms: Nursing Discharge Form Referrals: SARS-COVID,SARS-COVID [OTHER] - 12/02/20 4:50 pm (Go to the clinic at the [facility] for your second Maderna covid vaccine) Lavelle Galindo [Primary Care Provider] - 11/12/20 3:40 pm Activity:: Activity as Tolerated Equipment/Supplies:: No Equipment Needed Diet:: As Tolerated Discharge Orders Discharge Orders: Discharge Order (Routine); Ordered 11/05/20 Ordered By: Kimmy Sierra DS: Summary Time Spent with Patient providing and/or coordinating discharge services: Greater than 30 minutes Status at Discharge Functional status at discharge: independent ambulation Overall status at discharge: patient is progressing back to baseline Mental Status: mental status grossly normal Speech and Movement: speech and movement normal Mood: congruent mood Affect: normal affect Exam Const General: cooperative (awoken from a nap), comfortable and no acute distress Nutritional Appearance: overweight Orientation: alert, awake and oriented x3 HENMT Head: normal to inspection, normocephalic and atraumatic Mouth: oral mucosae normal Eyes Pupils: PERRL Chest Chest: normal inspection of the chest Resp Effort & Inspection: normal respiratory effort Auscultation: clear to auscultation bilaterally Cardio Rate: regular rate Rhythm: regular rhythm Neuro General: patient alert and patient oriented x3 Cranial Nerves: CN's II-XI intact bilaterally Psych Appearance: disheveled Mental Status: mental status grossly normal Speech and Movement: speech and movement normal Mood: congruent mood Affect: normal affect DS: Data Vitals/I&O Vitals and I&O: Vital Signs Temperature 36.6 C 11/05/20 08:32 Temperature Source Tympanic 11/05/20 08:32 Pulse 71 11/05/20 08:32 Pulse Rhythm Regular 11/05/20 00:31 Respiratory Rate 19 11/05/20 08:32 Respiratory Effort Non-Labored 11/05/20 00:31 Respiratory Depth Normal 11/05/20 00:31 Respiratory Pattern Normal 11/05/20 00:31 Blood Pressure 132/76 11/05/20 08:32 Blood Pressure Position Supine 11/02/20 15:58 Pulse Oximetry 96 11/05/20 08:32 Oxygen Delivery Method Room Air 11/05/20 08:32 Oxygen Flow Rate 0 11/05/20 08:32 Pain Level 0 11/04/20 23:43 Comment 11/04/20 07:27 Intake & Output 11/04/20 11/05/20 11/05/20 23:59 11:59 23:59 Intake Total 500 / 1630 360 / 600 240 / 600 Output Total 400 / 500 Balance 100 / 1130 360 / 600 240 / 600 Intake: Oral 500 / 1620 360 / 600 240 / 600 Output: Urine 400 / 500 Other: Urine Color Yellow Yellow Urine Appearance Clear Clear Urine Odor Normal Comment Some urine in brief Voiding Methods Bedside Commode Diaper Diaper Diaper Incontinent Incontinent [facility] Medical History (Updated 11/03/20 @ 13:01 by Jessie Cowan NP) Adjustment disorder with depressed mood AMBER (acute kidney injury) Alcohol abuse Alcoholic gastritis without bleeding Alcoholic ketosis Allergic rhinitis Anemia (12/20/16) Back pain, chronic Calcific tendinitis of left shoulder CAP (community acquired pneumonia) Cataract (11/07/15) Cervical radicular pain neck pain and DJD [facility] 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) pls refrain from alcohol Chronic alcoholism she will not stop drinking unless she checks with me, so that we can help her avert withdrawal I do not think she is capable on her own--she would need placement to achieve required goal of 3 months of sobriety Chronic diarrhea Closed displaced fracture of proximal phalanx of right index finger with routine healing (06/03/17) Closed right humeral fracture Contusion of left little finger Corneal ulcer, right (~08/23/18) 08/23/18; [facility] Dehydration Depression Diarrhea Discharge planning issues DVT prophylaxis Dystrophic nail Elev transaminase/LDH due to alcohol Epigastric abdominal pain Fall as cause of accidental injury at home as place of occurrence Genital herpes simplex recurrent gential; suppressive Valtrex GERD (gastroesophageal reflux disease) GI bleed (12/20/16) Head contusion Headache History of alcohol abuse Humerus fracture (09/12/19) Right Hyperlipidemia Hypertension Incidental lung nodule, greater than or equal to 8mm 1cm, spiculated, stable for many years, recommend f/u in 6 mo Macrocytosis (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 Multiple rib fractures 03/11/19 [facility] Nausea and vomiting in adult Non-cardiac chest pain (09/21/16) [facility] 09/21/16 NEGATIVE MP Osteoarthritis Osteopenia Palliative care patient (03/21/17) Pancreatitis, alcoholic, acute Peripheral edema Pleural effusion on left 03/11/19 [facility] Presacral mass (~09/15/18) 09/15/18 [facility] Right rib fracture Sacral mass Sciatica right, epidural injuections [facility] Tendinitis of left rotator cuff Tubular adenoma of colon (01/28/17) Urinary incontinence 01/24/13 urethral suspension and sling at [facility] (bladder suspension 1991) UTI (urinary tract infection) 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 Bladder repair. Ligation of fallopian tube Repair bladder injury, simple Family History Mother No problems noted. Father , DROWNED at age 50. No problems noted. Sister Personal history of malignant neoplasm MELANOMA Sister No problems noted. Grandfather Personal history of malignant neoplasm STOMACH Grandfather Personal history of malignant neoplasm PROSTATE Grandmother Heart disease MA Acute ill-defined cerebrovascular disease Grandmother Personal history of malignant neoplasm UTERINE Aunt , MA Heart disease MA Aunt , MA Heart disease Brother No problems noted. Social History Smoking/Tobacco Use Status: Former Tobacco Use Quit Date: 08/05/20 Smoking risk assessment performed?: Yes Alcohol Intake: current Alcohol Intake frequency: 0-2 drinks per day Alcohol type: hard liquor Drug use: Never Substance use type: does not use Current gender identity: female Do you feel safe at home: Yes Do you feel safe in your relationship?: Yes
--- NOTE | 2020-11-05 15:04 | PT.INTREAT ---
Date of service: 11/05/20 Time of Service: 09:20 PT Notes Visit Reasons: ALCOHOL WITHDRAWAL, PRURITUS Inpatient Physical Therapy Treatment Note [facility] Date: 11/05/2020 PRECAUTIONS: Fall SUBJECTIVE: Leticia is agreeable to participating in PT. She reports that she is feeling very sleepy this morning, and that she wishes to take a nap after PT. OBJECTIVE: PAIN: Patient c/o headache BED MOBILITY/TRANSFERS Supine-sit: I Sit-supine: I Sit-stand: S Stand-sit: S Chair-bed: S GAIT Assistive Device: FWW Weight bearing: Full Assist: S Distance: 300' Deviation: Slow violeta, short step height and length, decreased path deviation to L THEREX: Patient was instructed in clamshell exercise. TOILETING: Patient toileted with assist. ASSESSMENT: Patient tolerated session well, with decreased path deviation to the left compared to previous sessions. PLAN: Continue with global strengthening and continued gait and transfer training for improved activity tolerance and continued progression toward baseline level of function via PT upon discharge. TREATMENT CODE/TIME: 25 minutes; 67060 x2 (09:20)
--- NOTE | 2020-11-05 16:43 | PDOC.CMDIS ---
- If Service Date Differs Date of service: 11/05/20 Time of Service: 16:43 LACE Index Scoring Tool - Questions: Length of Stay (in days): 4 - 6 Acuity (Admit via E.D.?): Yes E.D. Visits: 20 - Answers: Total Score: 11 Risk of Readmission: High Risk Care Management Discharge Reason for Hospitalization: Alcohol Withdrawal, pruritus Discharge Plan: Leticia will return home today with a resumption of HH RN, and the addition of PT. She will be driven home via [facility] private vehicle, coordinated by CM. She will follow up with her PCP and discharge plan of care. CM discussed her discharge plan with Armida, her caregiver. She is agreeable to returning home. Patient/Family Education Needs: Review discharge instructions with pt and caregiver, discussion of self care needs and goals of care. Services Needed at Discharge: Home Health Care Services (resume HH RN, add PT), Transportation (RCT)
--- NOTE | 2020-11-07 16:50 | PT.INDS ---
Date of service: 11/05/20 PT Notes Visit Reasons: ALCOHOL WITHDRAWAL, PRURITUS Physical Therapy Inpatient Discharge Summary Date: 11/07/2020 Dates of service: 11/03/2020 through 11/05/2020 This is a clinical summary of care provided on the duration of dates listed above. No charge was made in the completion of this documentation. Referring Doctor: Jessie Cowan NP PT Orders: PT CONSULT: strengthening, balance, mobility Precautions: Fall. Standard. on CIWA protocol. Activity as tolerated. Patient Profile/Admitting Diagnosis: Leticia is a 75-year-old female with past medical history significant for chronic aloholism and repeated falls who presented to the ED on 11/02/2020 due to significant itching. She is diagnosed with ETOH wtithrawal, hypokalemia, pruritus, and fall. PMHX: Medical History Adjustment disorder with depressed mood AMBER (acute kidney injury) Alcohol abuse Alcoholic gastritis without bleeding Alcoholic ketosis Allergic rhinitis Anemia (12/20/16) Back pain, chronic Calcific tendinitis of left shoulder CAP (community acquired pneumonia) Cataract (11/07/15) Cervical radicular pain neck pain and DJD [facility] 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) pls refrain from alcohol Chronic alcoholism she will not stop drinking unless she checks with me, so that we can help her avert withdrawal I do not think she is capable on her own--she would need placement to achieve required goal of 3 months of sobriety Chronic diarrhea Closed displaced fracture of proximal phalanx of right index finger with routine healing (06/03/17) Closed right humeral fracture Contusion of left little finger Corneal ulcer, right (~08/23/18) 08/23/18; [facility] Dehydration Depression Diarrhea Discharge planning issues DVT prophylaxis Dystrophic nail Elev transaminase/LDH due to alcohol Epigastric abdominal pain Fall as cause of accidental injury at home as place of occurrence Genital herpes simplex recurrent gential; suppressive Valtrex GERD (gastroesophageal reflux disease) GI bleed (12/20/16) Head contusion Headache History of alcohol abuse Humerus fracture (09/12/19) Right Hyperlipidemia Hypertension Incidental lung nodule, greater than or equal to 8mm 1cm, spiculated, stable for many years, recommend f/u in 6 mo Macrocytosis (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 Multiple rib fractures 03/11/19 [facility] Nausea and vomiting in adult Non-cardiac chest pain (09/21/16) [facility] [place] NEGATIVE MP Osteoarthritis Osteopenia Palliative care patient (03/21/17) Pancreatitis, alcoholic, acute Peripheral edema Pleural effusion on left 03/11/19 [facility] Presacral mass (~09/15/18) 09/15/18 [facility] Right rib fracture Sacral mass Sciatica right, epidural injuections [facility] Tendinitis of left rotator cuff Tubular adenoma of colon (01/28/17) Urinary incontinence 01[place]24/[place] [facility] [place] UTI (urinary tract infection) 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 Bladder repair. Ligation of fallopian tube Repair bladder injury, simple Social History/Home Situation: Leticia lives in a private home in [place], [place]. She has a caregiver who comes in daily 4 days per week for 2 hours each time to assist with laundry, minor house chores, and grocery shopping. Patient is independent with MRADLs using a front wheeled walker. She receives meals on wheels. She no longer drives. Equipment Owned/DME: FWW, SC, grab bars, emergency alert device Subjective: NT. See most recent MOLD DESIGNER notes. Objective: General Observation: NT. See most recent MOLD DESIGNER notes. Mental Status: NT. See most recent MOLD DESIGNER notes. Pain: NT. See most recent MOLD DESIGNER notes. ROM: Right Upper Extremity: Shoulder Flexion allows up to 70 degrees. Shoulder abduction allows up to 50 degrees. Elbow flexion WFL. Wrist flexion WFL. Functional opening and closing of hand WFL. Left Upper Extremity: Shoulder Flexion allows up to 80 degrees. Shoulder abduction allows up to 60 degrees. Elbow flexion WFL. Wrist flexion WFL. Functional opening and closing of hand WFL. Right Lower Extremity: Hip flexion allows up to 20 degrees beyond 90 while seated at edge of bed. Hip abduction WFL. Knee flexion 30-90 degrees. Knee extension -30 degrees. Ankle dorsiflexion WFL. Ankle plantarflexion WFL. Left Lower Extremity: Hip flexion allows up to 20 degrees beyond 90 while seated at edge of bed. Hip abduction WFL. Knee flexion 30-90 degrees. Knee extension -30 degrees. Ankle dorsiflexion WFL. Ankle plantarflexion WFL. Strength: Right Upper Extremity: Shoulder flexors 3-/5. Shoulder abductors 3-/5. Elbow flexors 4/5. Elbow extensors 4/5. Certified Executive [employer] strong. Left Upper Extremity: Shoulder flexors 3-/5. Shoulder abductors 3-/5. Elbow flexors 4/5. Elbow extensors 4/5. Certified Executive Chef strong. Right Lower Extremity: Hip flexors 3-/5. Hip abductors 4-/5. Knee flexors 3-/5. Knee extensors 3-/5. Ankle dorsiflexors 4-/5. Ankle plantarflexors 4-/5. Left Lower Extremity: Hip flexors 3-/5. Hip abductors 4-/5. Knee flexors 3-/5. Knee extensors 3-/5. Ankle dorsiflexors 4-/5. Ankle plantarflexors 4-/5. Bed Mobility/Transfers: Supine to sit independent Sit to supine independent Sit to stand independent Stand to sit independent Bed to chair supervision Gait: 300 feet using FWW with supervision only. Path deviation decreased. Balance: Static Sitting: Good Dynamic Sitting: Good Static Standing: Fair Dynamic Standing: Fair Assessment: Patient continues to demonstrate generalized weakness, functional mobility prior requiring the need for front wheeled walker for all mobility ADL perform this, difficulty with walking with walking, impairment with balance, and increased fall risk resulting from current diagnoses. She will benefit from PT services to address impairments and functional limitations listed below. Patient continues to present with clinical signs and symptoms consistent with current/admitting diagnoses that have resulted to mobility limitations, gait instability, generalized weakness, and impairment of motor control as demonstrated by the following impairment level findings: 1. Decreased strength to B UE/LE major muscle groups 2. Impaired standing balance 3. Impaired activity tolerance Impairments are continuing to contribute to the following functional limitations: 1. Inability to safely ambulate without assistive device and physical assistance 2. Increase completion time for mobility ADL performance 3. Increased fall risk 4. Inability to negotiate steps alone safely Goals: Goals X1 week 1. Supine-Sit independent MET 2. Sit-Supine independent MET 3. Sit-Stand independent MET 4. Stand-Sit independent MET 5. Bed-Chair independent MET 6. Chair-Bed independent MET 7. Independent gait on level surface with use of straight cane for at least 300 feet without report of pain nor dyspnea NOT MET 8. Independent stair negotiation while holding onto bilateral rails for at least 5 steps without report of pain nor dyspnea NOT MET 9. Good static and dynamic standing balance/tolerance NOT MET DISCHARGE RECOMMENDATIONS: SNF vs. PT TREATMENT CODE/TIME: OR Thank you very much for this referral. Tawana Cruz PT, DPT, CLT [facility] [place], [place]
== END 2020-11-05 17:15 | disposition home health service (06) | DRG 897 ==
LOC: ER 15:54 → MS 20:53
PROVIDERS: Nurse Practitioner; Admitting Provider General Practice; Emergency Provider Physician Assistant; PCP Family Medicine; Visit Provider General Practice
DX: F10.239 Alcohol dependence with withdrawal, unspecified (principal); E87.2 Acidosis; E51.2 Wernicke's encephalopathy; I10 Essential (primary) hypertension; L29.9 Pruritus, unspecified; R00.0 Tachycardia, unspecified; F43.21 Adjustment disorder with depressed mood; K29.20 Alcoholic gastritis without bleeding; J30.9 Allergic rhinitis, unspecified; D64.9 Anemia, unspecified; G89.29 Other chronic pain; M54.9 Dorsalgia, unspecified; M54.12 Radiculopathy, cervical region; K52.9 Noninfective gastroenteritis and colitis, unspecified; E86.0 Dehydration; F32.9 Major depressive disorder, single episode, unspecified; A60.00 Herpesviral infection of urogenital system, unspecified; K21.9 Gastro-esophageal reflux disease without esophagitis; D75.89 Other specified diseases of blood and blood-forming organs; E78.5 Hyperlipidemia, unspecified; R91.1 Solitary pulmonary nodule; M19.90 Unspecified osteoarthritis, unspecified site; M85.80 Other specified disorders of bone density and structure, unspecified site; M54.31 Sciatica, right side; Z87.440 Personal history of urinary (tract) infections; E87.6 Hypokalemia; R29.6 Repeated falls; Z91.14 Patient's other noncompliance with medication regimen
CPT/HCPCS: 36410; 36415; 71275; 74177; 80048; 80053; 82805; 83690; 87637; 93005; 96361; 96374; 96375; 96376; 97162; 97530; 99222; 99232; 99239; 99285; 80320; 83605; 83735; 83880; 84132; 84484; 85025; 93010; 99284; J1200; J1644; J2060; J3475; J3480; J3490

== ENCOUNTER 2020-11-08 08:48 | Emergency (ER) | payer OTHER, SELFPAY ==
[2020-11-08] VITALS (22 sets, daily range): BP systolic 159–186; BP diastolic 86–104; PULSE 90–104; RESP 12–28; TEMP 36.4–37; O2SAT 96–100
--- NOTE | 2020-11-08 08:45 | RT.EKG_ITS ---
APPROVED REPORT Exam: Resting ECG Patient Location: E HR:96 bpm ECG Measurements Heart Rate 96 AXIS CA 171 P 55 QRSd 81 QRS -31 QT 390 T -5 QTc 494 Conclusion Sinus rhythm...normal P axis, V-rate 60- 99 Inferior infarct, old...Q >35mS, II III aVF I have reviewed and interpreted ECG and agree with software generated interpretation.
--- NOTE | 2020-11-08 08:59 | ED.GENADUL_ITS ---
Discharge Plan Disposition Patient Disposition: HOME Condition: Stable Discharge Details Clinical Impression: Fall, Transaminitis, Multiple contusions Primary Care Provider: Lavelle Galindo ED Provider: Tash Servin [place] Meds and New Rx's Prescriptions: No Action Xiidra 5 % dropperette 1 drp ophthalmic (eye) BID RF: 0 magnesium oxide 400 mg magnesium capsule 400 mg PO BID Qty: 180 RF: 3 celecoxib [Celebrex] 100 mg capsule 100 mg PO BID Qty: 60 RF: 2 cholestyramine (with sugar) 4 gram powder 1 pwd PO BID Qty: 378 RF: 0 Ensure Active High Protein Liquid 414 ml PO DAILY Qty: 23438 RF: 11 dicyclomine 10 mg capsule 10 mg PO QID PRN (Reason: belly pain) Qty: 40 RF: 0 sucralfate 1 gram tablet 1 g PO AC & HS Qty: 120 RF: 5 ipratropium-albuterol 0.5 mg-3 mg(2.5 mg base)/3 mL solution for nebulization 3 ml IH QID PRN (Reason: shortness of breath) Qty: 90 RF: 3 fluticasone propionate 50 mcg/actuation spray,suspension 1 spray NS daily prn Qty: 9.9 RF: 2 amlodipine 10 mg tablet 10 mg PO DAILY Qty: 90 RF: 3 gabapentin 300 mg capsule 300 mg PO BID Qty: 90 RF: 5 hydrochlorothiazide 12.5 mg tablet 12.5 mg PO DAILY Qty: 90 RF: 3 metoprolol tartrate 50 mg tablet 50 mg PO BID Qty: 180 RF: 3 multivitamin [Multiple Vitamins] Tablet 1 tab PO DAILY Qty: 90 RF: 3 pantoprazole 40 mg tablet,delayed release (DR/EC) 40 mg PO DAILY Qty: 90 RF: 3 potassium chloride [Klor-Con M10] 10 mEq tablet,ER particles/crystals 10 meq PO DAILY Qty: 90 RF: 3 venlafaxine 37.5 mg capsule,extended release 24hr 37.5 mg PO DAILY Qty: 30 RF: 11 venlafaxine 150 mg capsule,extended release 24hr 150 mg PO DAILY Qty: 30 RF: 11 thiamine HCl (vitamin B1) 100 mg tablet 100 mg PO DAILY Qty: 90 RF: 3 folic acid 1 mg tablet 1 mg PO DAILY Qty: 90 RF: 3 doxepin 3 mg tablet 3 mg PO BID PRN (Reason: itch) Qty: 30 RF: 0 hydroxyzine HCl 25 mg tablet 25 mg PO TID PRN (Reason: itching) Qty: 30 RF: 2 Refresh Plus 0.5 % Dropperette 1 drp OU Q4H WHILE AWAKE Qty: 30 RF: 0 diphenhydramine HCl 25 mg Capsule 25 mg PO Q4H PRN PRNQty: 20 RF: 0 Restasis 0.05 % Dropperette 0.4 ml OU BID Qty: 10 RF: 0 hydrocortisone 1 % Cream 0 g topical TID Qty: 1 RF: 2 Eucerin Cream 0 g topical TID Qty: 1 RF: 1 ascorbic acid (vitamin C) [Vitamin C] 500 mg Tablet 500 mg PO BID Qty: 30 RF: 0 Bio-K plus 50 billion cell Capsule,Delayed Release(Dr/Ec) 1 cap PO DAILY Qty: 60 RF: 0 sennosides [Senokot] 8.6 mg tablet 8.6 mg PO PRN PRNRF: 0 chlordiazepoxide HCl 25 mg capsule 25 mg PO Q12H Qty: 7 RF: 0 Discharge Instructions Instructions: Contusion in Adults (ED) Additional Instructions: Please encourage water intake. Please work on cutting back on your alcohol. Please use your walker at home to help with ambulation. Please take your medications as prescribed. Please follow-up with primary care in 1 week for reevaluation. If you develop any new or worsening symptoms to seek care urgently once again. Referrals: Lavelle Galindo [Primary Care Provider] - Discharge Data Discharge Date/Time-TO BE ENTERED AT DEPARTURE: 11/08/20 12:45 Medical Decision Making Patient is a 75-year-old female, well-known to myself in the department, brought in via EMS after being found down at home. Patient reports that she tripped this morning when trying to let the dog outside and fell forward striking the top of her head against the refrigerator. She denies loss of consciousness. Also reports pain along the right side of her chest, neck, right arm. Patient does have known fractures in various stages of healing to these same areas. Patient has a long history of alcohol abuse, she reports her last drink was last night. Reports that typically she does not begin drinking until the afternoon or evening. Patient activated her life alert after her fall prompting EMS evaluation. She is unable to tell me how long she was on the ground for. Unknown what time she attempted to let the dog out. Patient has not had any vomiting. Is not endorsing visual changes. Past medical history pertinent for alcohol abuse, electrolyte abnormalities, multiple rib fractures, closed fracture of the left humerus, hypertension, hyperlipidemia, chronic back pain, depression. On exam, patient is fairly quiet and limited in her responses. This does seem intermittent and patient is easily arousable. Patient is able to move all 4 extremities but is only doing this when not prompted. When asked to move her extremities she is unable or unwilling. She has no palpable skull fracture. No hemotympanum. She is endorsing discomfort at the crown of her head, no ecchymosis or swelling is appreciated. She has diffuse pain on palpation of her cervical spine. Collar was applied by myself and nursing staff. When attempting to assess midline tenderness from thoracic or lumbar spine, patient would not answer questioning. She does report pain with palpation over the chest wall, particularly on the right side of the ribs. Lung sounds are clear in all gatica, normal cardiac rotation. Abdomen is soft and nontender. Pelvis is stable. I do not see any objective evidence of trauma. She is endorsing pain over the right arm but would not localize where this pain is. She does not seem to have any pain in the hand with palpation. No evidence of trauma on her bilateral lower extremities. 2+ distal pulses in all extremities. Plan for connor scan did not sure how intoxicated the patient currently is and she is limited with the response that she is willing to give. Labs reviewed. No leukocytosis. Stable H&H. Coags are normal. Chemistry significant for an anion gap of 13. AST, ALT and alk phos are all elevated but is unchanged from the patient's baseline. Her CK is within normal limits. Troponin within normal limits. Alcohol less than 3. FINDINGS: Brain: There is moderate diffuse heterogeneity of the white matter attenuation, consistent with chronic white matter ischemic changes. Moderate cerebral atrophy No acute intracranial hemorrhage.. Cerebral ventricles: No ventriculomegaly. Bones/joints: Contour abnormalities in the nasal bones may represent acute or chronic nasal fractures. Paranasal sinuses: Visualized sinuses are unremarkable. No fluid levels. Mastoid air cells: Visualized mastoid air cells are well aerated. Soft tissues: Unremarkable. IMPRESSION: 1. No acute intracranial hemorrhage.. 2. Contour abnormalities in the nasal bones may represent acute or chronic nasal fractures. FINDINGS: Bones/joints: Kyphosis of the cervical spine with the apex at C6 .. No acute fracture of the cervical spine. No subluxation or dislocation of the cervical spine. Anterolisthesis of C3 with respect to C4 and C5 with respect to C6 Anterior osteophyte formation C2 through C7 Degenerative changes in the facets at multiple levels Discs/Spinal canal/Neural foramina: Intervertebral disc space narrowing C4 through C7 may represent degenerative disc disease.. Posterior osteophyte formation C4 through C7 Degenerative changes at C1/C2 Thyroid: The thyroid is unremarkable Lungs: Lung apices are normal. Soft tissues: Unremarkable. IMPRESSION: 1. Kyphosis of the cervical spine with the apex at C6 .. 2. No acute fracture of the cervical spine. 3. No subluxation or dislocation of the cervical spine. 4. Intervertebral disc space narrowing C4 through C7 may represent degenerative disc disease.. FINDINGS: Thyroid: 5 mm nodule left thyroid lobe. Lungs: Right apical 11 mm spiculated nodular opacity. Left upper lobe linear atelectasis or fibrosis. Pleural spaces: Unremarkable. No pneumothorax. No pleural effusion. Heart: Unremarkable. No cardiomegaly. No pericardial effusion. Aorta: Unremarkable. No aortic aneurysm. Lymph nodes: Unremarkable. No enlarged lymph nodes. Bones/joints: Multiple bilateral chronic healed rib fractures. Unusual spur or chronic fracture deformity of the proximal right humerus. Soft tissues: Unremarkable. Other findings: Respiratory motion artifact. IMPRESSION: 1. No acute findings. 2. Right apical 11 mm spiculated opacity.For both low risk and high risk patients, consider CT Chest at 3 months, PET/CT, or biopsy. (Reference: [email or web address]) 3. Chronic healed rib fractures and deformity proximal right humerus. FINDINGS: Liver: Normal. No mass. Gallbladder and bile ducts: Normal. No calcified stones. No ductal dilation. Pancreas: Normal. No ductal dilation. Spleen: Normal. No splenomegaly. Adrenal glands: Normal. No mass. Kidneys and ureters: Multiple bilateral renal cortical cysts. Largest cyst posterior cortex right kidney measuring 2.8 cm. And anterior cortex left kidney measuring 3.2 cm. Stomach and bowel: Unremarkable. No obstruction. No mucosal thickening. Appendix: No evidence of appendicitis. Intraperitoneal space: No free intraperitoneal fluid. Vasculature: Unremarkable. No abdominal aortic aneurysm. Lymph nodes: Unremarkable. No enlarged lymph nodes. Urinary bladder: Unremarkable as visualized. Reproductive: Unremarkable as visualized. Bones/joints: Thoracolumbar scoliosis. Multiple bilateral chronic healed rib fractures. No thoracic or lumbar compression deformities. Anterolisthesis L4 on L5. Soft tissues: Bilateral fat containing inguinal hernias. IMPRESSION: 1. No acute findings. 2. Bilateral renal cortical cysts FINDINGS: Bones/joints: Spur versus chronic fracture deformity of the right humerus greater tuberosity. Mid and distal humerus are intact. Right acromioclavicular separation. Multiple old healed right rib fractures. Soft tissues: Soft tissue swelling. IMPRESSION: 1. No acute fracture. 2. Stable spur or chronic fracture deformity of the right humerus greater tuberosity. 3. Right AC separation which appears chronic and unchanged from prior radiographs. FINDINGS: Bones/joints: Normal. Soft tissues: Normal. IMPRESSION: No acute findings. I discussed the findings with the patient. Patient is no longer endorsing midline cervical tenderness and has good range of motion. Collar has been removed. Patient feels that she would like to be able to go home at this point which I feel is appropriate as she does appear to be at her baseline. I encouraged alcohol cessation. Encourage close follow-up with primary care. She continues to endorse mild headache. Will give Tylenol to help with her discomfort. Advised that she should take the home medications. She has not taken her morning meds and was noted to be hypertensive. Patient does have baseline hypertension but will take her medications as prescribed when she returns home. Return precautions were discussed. All of her questions and concerns were addressed and she is in agreement this plan. [facility] General Mode of arrival: EMS . Date/Time Provider Initiated Documentation: 11/08/20 08:53 . Limitations to Documentation: no limitations . Information obtained by: patient, EMS and RN notes reviewed . History of Present Illness 75 year old F presents to the emergency department with the chi ef complaint of fall, struck head, right arm and right chest wall, described as moderate, with intensity rated at 7. Quality is described as aching, and is localized to the head, chest, right and upper extremity. Patient reports no radiation. Patient started experiencing this unknown and it has been constant. Immobilization improves symptom(s), Movement worsens symptoms . Patient notes headaches; denies chest pain, cough, diaphoresis, fever/chills and nausea/vomiting. Patient did receive the following treatments prior to arrival, none Related Data Home Medications Medication Instructions Recorded Confirmed Refresh Plus 1 drp OU Q4H WHILE AWAKE #30 each 06/20/19 11/08/20 magnesium oxide 400 mg PO BID #180 cap 07/17/19 11/08/20 food supplemt, lactose-reduced 414 ml PO DAILY #65047 ml 08/24/19 11/08/20 dicyclomine 10 mg capsule 10 mg PO QID PRN #40 cap 11/06/19 11/08/20 sucralfate 1 gram tablet 1 g PO AC & HS #120 tab 11/06/19 11/08/20 ipratropium 0.5 mg-albuterol 3 mg 3 ml IH QID PRN #90 ml 01/04/20 11/08/20 (2.5 mg base)/3 mL nebulization soln fluticasone propionate 50 1 spray NS daily prn #9.9 ml 03/25/20 11/08/20 mcg/actuation nasal spray,suspension Bio-K plus 1 cap PO DAILY #60 cap 05/12/20 11/08/20 ascorbic acid (vitamin C) [Vitamin 500 mg PO BID #30 tab 05/12/20 11/08/20 C] celecoxib 100 mg capsule 100 mg PO BID #60 cap 06/13/20 11/08/20 lifitegrast 5 % eye drops in a 1 drp OPHTHALMIC (EYE) BID 08/05/20 11/08/20 dropperette sennosides [Senokot] 8.6 mg PO PRN PRN 08/08/20 11/08/20 chlordiazepoxide HCl 25 mg PO Q12H #7 cap 08/09/20 11/08/20 cholestyramine (with sugar) 4 gram 1 pwd PO BID #378 g 08/27/20 11/08/20 oral powder amlodipine 10 mg tablet 10 mg PO DAILY #90 tab 09/05/20 11/08/20 folic acid 1 mg tablet 1 mg PO DAILY #90 tab 09/05/20 11/08/20 gabapentin 300 mg capsule 300 mg PO BID #90 cap 09/05/20 11/08/20 hydrochlorothiazide 12.5 mg tablet 12.5 mg PO DAILY #90 tab 09/05/20 11/08/20 metoprolol tartrate 50 mg tablet 50 mg PO BID #180 tab 09/05/20 11/08/20 multivitamin 1 tab PO DAILY #90 tab 09/05/20 11/08/20 pantoprazole 40 mg tablet,delayed 40 mg PO DAILY #90 tab 09/05/20 11/08/20 release potassium chloride 10 mEq 10 meq PO DAILY #90 tab 09/05/20 11/08/20 tablet,extended release(part/cryst) thiamine HCl (vitamin B1) 100 mg 100 mg PO DAILY #90 tab 09/05/20 11/08/20 tablet venlafaxine 150 mg 150 mg PO DAILY #30 cap 09/05/20 11/08/20 capsule,extended release 24 hr venlafaxine 37.5 mg 37.5 mg PO DAILY #30 cap 09/05/20 11/08/20 capsule,extended release 24 hr doxepin 3 mg tablet 3 mg PO BID PRN #30 tab 10/15/20 11/08/20 hydroxyzine HCl 25 mg tablet 25 mg PO TID PRN #30 tab 10/17/20 11/08/20 Eucerin 0 g TOPICAL TID #1 unit 10/25/20 11/08/20 Restasis 0.4 ml OU BID #10 ea 10/25/20 11/08/20 diphenhydramine HCl 25 mg PO Q4H PRN PRN #20 cap 10/25/20 11/08/20 hydrocortisone 0 g TOPICAL TID #1 applic 10/25/20 11/08/20 Previous Rx's Medication Instructions Recorded Refresh Plus 1 drp OU Q4H WHILE AWAKE #30 each 06/20/19 magnesium oxide 400 mg PO BID #180 cap 07/17/19 food supplemt, lactose-reduced 414 ml PO DAILY #74117 ml 08/24/19 dicyclomine 10 mg capsule 10 mg PO QID PRN #40 cap 11/06/19 sucralfate 1 gram tablet 1 g PO AC & HS #120 tab 11/06/19 ipratropium 0.5 mg-albuterol 3 mg 3 ml IH QID PRN #90 ml 01/04/20 (2.5 mg base)/3 mL nebulization soln fluticasone propionate 50 1 spray NS daily prn #9.9 ml 03/25/20 mcg/actuation nasal spray,suspension Bio-K plus 1 cap PO DAILY #60 cap 05/12/20 ascorbic acid (vitamin C) [Vitamin 500 mg PO BID #30 tab 05/12/20 C] celecoxib 100 mg capsule 100 mg PO BID #60 cap 06/13/20 chlordiazepoxide HCl 25 mg PO Q12H #7 cap 08/09/20 cholestyramine (with sugar) 4 gram 1 pwd PO BID #378 g 08/27/20 oral powder amlodipine 10 mg tablet 10 mg PO DAILY #90 tab 09/05/20 folic acid 1 mg tablet 1 mg PO DAILY #90 tab 09/05/20 gabapentin 300 mg capsule 300 mg PO BID #90 cap 09/05/20 hydrochlorothiazide 12.5 mg tablet 12.5 mg PO DAILY #90 tab 09/05/20 metoprolol tartrate 50 mg tablet 50 mg PO BID #180 tab 09/05/20 multivitamin 1 tab PO DAILY #90 tab 09/05/20 pantoprazole 40 mg tablet,delayed 40 mg PO DAILY #90 tab 09/05/20 release potassium chloride 10 mEq 10 meq PO DAILY #90 tab 09/05/20 tablet,extended release(part/cryst) thiamine HCl (vitamin B1) 100 mg 100 mg PO DAILY #90 tab 09/05/20 tablet venlafaxine 150 mg 150 mg PO DAILY #30 cap 09/05/20 capsule,extended release 24 hr venlafaxine 37.5 mg 37.5 mg PO DAILY #30 cap 09/05/20 capsule,extended release 24 hr doxepin 3 mg tablet 3 mg PO BID PRN #30 tab 10/15/20 hydroxyzine HCl 25 mg tablet 25 mg PO TID PRN #30 tab 10/17/20 Eucerin 0 g TOPICAL TID #1 unit 10/25/20 Restasis 0.4 ml OU BID #10 ea 10/25/20 diphenhydramine HCl 25 mg PO Q4H PRN PRN #20 cap 10/25/20 hydrocortisone 0 g TOPICAL TID #1 applic 10/25/20 Allergies Allergy/AdvReac Type Severity Reaction Status Date / Time Penicillins Allergy Mild Rash Verified 11/08/20 09:02 ramipril Allergy Unknown ITCHING Verified 11/08/20 09:02 meperidine [From Demerol] AdvReac Severe Nausea Verified 11/08/20 09:02 bupropion AdvReac Mild GI upset Verified 11/08/20 09:02 AMBER Inhibitors AdvReac Unknown COUGH Verified 11/08/20 09:02 alendronate sodium AdvReac Unknown GI Distress Verified 11/08/20 09:02 clarithromycin AdvReac Unknown intolerant Verified 11/08/20 09:02 paroxetine AdvReac Unknown Diarrhea Verified 11/08/20 09:02 General JORDAN: 2 Review of Systems Constitutional Constitutional: Reports as per HPI, Denies chills, Denies fatigue, Denies fever(s), Reports headache(s) and Denies weakness ENT Ears, Nose, Mouth, and Throat: Denies abnormal hearing and Reports headache(s) Cardiovascular Cardiovascular: Reports as per HPI, Reports chest pain (right sided chest wall pain) and Denies dyspnea Respiratory Respiratory: Reports as per HPI, Denies cough, Denies pain on inspiration, Denies pain with cough and Denies dyspnea Gastrointestinal Gastrointestinal: Reports as per HPI, Denies abdominal pain, Denies nausea and Denies vomiting Genitourinary Genitourinary: Reports as per HPI and Denies urinary incontinence Musculoskeletal Musculoskeletal: Reports as per HPI Integumentary/Breasts Skin/Breast: Reports as per HPI and Denies rash Neurologic Neurologic: Reports as per HPI, Denies abnormal hearing, Denies abnormal movements, Denies abnormal speech, Reports headache(s), Denies lack of coordination, Denies localized weakness, Denies seizure-like activity, Denies paresthesias and Denies weakness Endocrine Endocrine: Denies fatigue COUNTS INCLUDE 234 BEDS AT THE [facility] Medical History (Updated 11/08/20 @ 11:11 by CELINA Villarreal) Adjustment disorder with depressed mood AMBER (acute kidney injury) Alcohol abuse Alcoholic gastritis without bleeding Alcoholic ketosis Allergic rhinitis Anemia (12/20/16) Back pain, chronic Calcific tendinitis of left shoulder CAP (community acquired pneumonia) Cataract (11/07/15) Cervical radicular pain neck pain and DJD [facility] clinic 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) pls refrain from alcohol Chronic alcoholism she will not stop drinking unless she checks with me, so that we can help her avert withdrawal I do not think she is capable on her own--she would need placement to achieve required goal of 3 months of sobriety Chronic diarrhea Closed displaced fracture of proximal phalanx of right index finger with routine healing (06/03/17) Closed right humeral fracture Contusion of left little finger Corneal ulcer, right (~08/23/18) 08/23/18; [facility] Dehydration Depression Diarrhea Discharge planning issues DVT prophylaxis Dystrophic nail Elev transaminase/LDH due to alcohol Epigastric abdominal pain Fall as cause of accidental injury at home as place of occurrence Genital herpes simplex recurrent gential; suppressive Valtrex GERD (gastroesophageal reflux disease) GI bleed (12/20/16) Head contusion Headache History of alcohol abuse Humerus fracture (09/12/19) Right Hyperlipidemia Hypertension Incidental lung nodule, greater than or equal to 8mm 1cm, spiculated, stable for many years, recommend f/u in 6 mo Macrocytosis (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 Multiple rib fractures 03/11/19 [facility] Nausea and vomiting in adult Non-cardiac chest pain (09/21/16) [facility] 09/21/16 NEGATIVE MP Osteoarthritis Osteopenia Palliative care patient (03/21/17) Pancreatitis, alcoholic, acute Peripheral edema Pleural effusion on left 03/11/19 [facility] Presacral mass (~09/15/18) 09/15/18 [facility] Right rib fracture Sacral mass Sciatica right, epidural injuections [facility] Tendinitis of left rotator cuff Tubular adenoma of colon (01/28/17) Urinary incontinence 01/24/13 urethral suspension and sling at [facility] (bladder suspension 1991) UTI (urinary tract infection) 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 Bladder repair. Ligation of fallopian tube Repair bladder injury, simple Family History Mother No problems noted. Father , DROWNED at age 50. No problems noted. Sister Personal history of malignant neoplasm MELANOMA Sister No problems noted. Grandfather Personal history of malignant neoplasm STOMACH Grandfather Personal history of malignant neoplasm PROSTATE Grandmother Heart disease NM Acute ill-defined cerebrovascular disease Grandmother Personal history of malignant neoplasm UTERINE Aunt , NM Heart disease NM Aunt , NM Heart disease Brother No problems noted. Social History Smoking/Tobacco Use Status: Former Tobacco Use Quit Date: 08/05/20 Smoking risk assessment performed?: Yes Alcohol Intake: current Alcohol Intake frequency: 0-2 drinks per day Alcohol type: hard liquor Drug use: Never Substance use type: does not use Details: last ETOH yesterday afternoon Current gender identity: female Do you feel safe at home: Yes Do you feel safe in your relationship?: Yes Exam Const General: uncooperative, not healthy appearing, comfortable, no acute distress, well developed, well groomed and ill appearing chronically Nutritional Appearance: average body habitus and well nourished Orientation: alert, awake and oriented x3 HENMT Head: normal to inspection, no palpable skull fracture, normocephalic and atraumatic Ears: hearing grossly normal bilaterally, external ears normal and TM's normal bilaterally General nose exam: external nose normal Mouth: oral mucosae normal, lip normal and tongue normal Throat: posterior oropharynx normal Eyes Alignment and Position: alignment normal Periorbital: periorbital findings normal Eyelids: eyelids normal Conjunctivae: conjunctivae normal Pupils: PERRL EOM: EOM intact bilaterally Neck Neck: normal visual inspection and limited ROM (patietn collared) Chest Chest: normal inspection of the chest, normal palpation of entire chest wall, no crepitus and no localized rib tenderness Resp Effort & Inspection: normal respiratory effort, able to speak in complete sentences and no respiratory distress Auscultation: clear to auscultation bilaterally, no rales, no rhonchi and no wheezes Cardio Rate: regular rate Rhythm: regular rhythm Heart Sounds: S1 normal and S2 normal GI Inspection: normal to inspection, no abdominal wall ecchymosis, no edema and non-distended Palpation: soft, no hepatosplenomegaly, not firm, no guarding, no pulsatile masses, not rigid and nontender Auscultation: normal bowel sounds Back/Spine/Pelvis Cervical Spine: normal cervical lordosis, No cervical ROM normal (did not assess after patient found to have pain with palpation), cervical spinal tenderness (diffuse) and No step off deformity Thoracic/Lumbar Spine: thoracic and lumbar spine normal to inspection, thoraco- lumbar ROM normal, No thoraco-lumbar ROM limited, No thoraco-lumbar spasm and No thoracic spinal tenderness Pelvis: no pain with anterior-posterior compression and no pain with lateral compression Skin General skin exam: no rashes or lesions noted Lesions: no lesions Rashes: no rashes Trauma: no lacerations or abrasions Wounds: no wounds Neuro General: patient alert, patient awake, patient oriented x3, gait normal (baseline, ambulates with walker), tone normal and moves all extremities Cranial Nerves: CN's II-XI intact bilaterally Cognition: normal cognition Speech: speech normal Gait: normal gait Motor: strength not 5/5 throughout (patient has limited exam, refuses to preform parts of exam), no movement abnormalities noted and no fasciculations Sensory Exam: no sensory deficits noted (no saddle paresthesias) Extrem General: normal to inspection, capillary refill normal, no pedal edema and no calf tenderness Psych Appearance: grossly normal and disheveled Mental Status: mental status grossly normal Speech and Movement: speech and movement normal
--- NOTE | 2020-11-08 09:00 | DI.CT_ITS ---
EXAM: CT HEAD CERVICAL SPINE WO COMPARISON: CT CT CHEST/ABD/PEL W from 09/01/2020 FINDINGS: CT examination of the cervical spine was performed without contrast administration. There is severe degenerative deformity of the cervical spine with mid cervical kyphosis and anterior subluxation of C3 on C4 which appears to be on a degenerative basis. There is no evidence of acute cervical spine fracture or dislocation. Intervertebral disc spaces are well maintained. Tracheolaryngeal structures appear intact. No cervical mass or adenopathy. Noncontrast cranial CT was performed. There is moderate generalized cerebral atrophy. No evidence of acute intracranial hemorrhage, mass effect, or midline shift. No calvarial fracture. The orbital and temporal bone structures appear intact. Visualized mastoid air cells and paranasal sinuses appear clear. IMPRESSION: No evidence of acute cervical spine injury. No evidence of acute intracranial injury. RADIATION DOSE DELIVERED: 1,123.26mGy.cm Total DLP 1,123.26mGy.cm Total DLP DATA REPOSITORY: All CT scans at this facility are submitted to the National Radiology Data Registry (NRDR) Dose Index Registry (DIR) with the [employer] (ACR). RADIATION OPTIMIZATION: All CT scans at this facility use at least one of these dose optimization te chniques: automated exposure control; mA and/or kV adjustment per patient size (includes targeted exa ms where dose is matched to clinical indication); or iterative reconstruction.
--- NOTE | 2020-11-08 09:00 | DI.RAD_ITS ---
EXAM: XR FOREARM RT CLINICAL HISTORY: fall TECHNIQUE: COMPARISON: CR,XR XR HUMERUS RT from 11/08/2020 FINDINGS: Two views were obtained. There is no evidence of fracture. IMPRESSION: RADIATION DOSE DELIVERED: Total DLP
--- NOTE | 2020-11-08 09:00 | DI.RAD_ITS ---
EXAM: XR HUMERUS RT CLINICAL HISTORY: fall TECHNIQUE: COMPARISON: No exams were available for comparison FINDINGS: Two views were obtained. There are severe degenerative changes of the glenohumeral joint with possib le old humeral head fracture. There is no evidence of acute fracture. IMPRESSION: RADIATION DOSE DELIVERED: Total DLP
--- NOTE | 2020-11-08 09:00 | DI.CT_ITS ---
EXAM: CT CHEST/ABD/PEL W TECHNIQUE: CT examination of the chest, abdomen, and pelvis was performed with bolus infusion of 100 cc of Omnipaque 350. COMPARISON: CT CT CHEST/ABD/PEL WO from 02/07/[address] CHEST WO from 05/08/[address] CHEST PE ABD PELVIS W from 11/02/2020 FINDINGS: There is no evidence of a thoracic vascular injury. Pulmonary parenchymal detail is poorly visualized due to motion. An 11 millimeter spiculated right a pical pulmonary nodule is again noted unchanged from multiple prior examinations. No pneumothorax or pleural effusion. No mediastinal hematoma. No adenopathy in the chest. Tracheobronchial tree appears intact. There are multiple bilateral old rib fractures. No acute fracture is seen. No mediastinal or hilar adenopathy. Mild cardiomegaly noted. Note is made of hepatic steatosis. The spleen, and pancreas appear normal. Gallbladder and bile duct s are normal. Adrenals and kidneys are unremarkable except for multiple previously mentioned bilateral renal cysts. . No evidence of urinary tract injury or obstruction. No abdominal or pelvic vascular injury seen. A previously described presacral lobulated mass is again noted, little interval change in appearance comparison with examination of February 07, 2020. This may represent adenopathy, malignancy is not exclu ded. No significant abdominal wall hernia or hematoma. No evidence of bowel injury. No fracture identified in the region surveyed. IMPRESSION: No evidence of acute injury of the chest, abdomen, or pelvis. Additional findings as described above. RADIATION DOSE DELIVERED: 1,253.93mGy.cm Total DLP 1,253.93mGy.cm Total DLP DATA REPOSITORY: All CT scans at this facility are submitted to the National Radiology Data Registry (NRDR) Dose Index Registry (DIR) with the [employer] (A[employer]). RADIATION OPTIMIZATION: All CT scans at this facility use at least one of these dose optimization te chniques: automated exposure control; mA and/or kV adjustment per patient size (includes targeted exa ms where dose is matched to clinical indication); or iterative reconstruction.
[2020-11-08 09:30] LABS: Abs Immature Grans 0.02 10^3/uL (0.0-0.06); Absolute Basophil Count 0.01 10^3/uL (0.0-0.2); Absolute Lymphocyte Count 1.13 10^3/uL (1.2-3.4); Absolute Monocyte Count 0.28 10^3/uL (0.1-0.8); Absolute Neutrophil Count 4.58 10^3/uL (1.2-6.7); Basophils % 0.2; HCT 41.9 % (36.0-46.0); HGB 13.9 g/dL (11.2-15.7); Immature Grans % 0.3; Lymphocytes % 18.8; MCH 33.3 pg (27.0-33.0); MCHC 33.2 % (32.0-36.0); MCV 100.5 fL (80-95); MPV 9.4 fL (8.0-11.0); Monocytes % 4.7; Nucleated RBC 0 %; Platelet Count 240 10^3/uL (130-400); RBC 4.17 10^6/uL (3.93-5.22); RDW 13.8 % (11.7-14.6); WBC 6.02 10^3/uL (4.4-10.8)
[2020-11-08 09:43] LABS: Prothrombin Time 10.1 sec (9.3-11.0)
[2020-11-08 09:44] LABS: Creatine Kinase 33 U/L (26-192)
[2020-11-08 09:47] LABS: ALT 62 U/L (14-59); AST 64 U/L (15-37); Albumin 3.8 g/dL (3.4-5.0); Alkaline Phosphatase 156 U/L (46-116); Anion Gap 13.1 mmol/L (3-11); BUN 15 mg/dL (7-18); CO2 23.9 mmol/L (21.0-32.0); Calcium 10.4 mg/dL (8.5-10.1); Chloride 102 mmol/L (98-107); ETHANOL BLOOD < 3.0 mg/dL (<3); Glucose 105 mg/dL (74-106); Magnesium 1.8 mg/dL (1.8-2.4); Potassium 4.3 mmol/L (3.5-5.1); Sodium 139 mmol/L (136-145); Troponin I < 0.05 ng/mL (<0.06)
[2020-11-08] MEDS: Omnipaque 350 MG/ML 100 ML BTL IJ (10:19)
[2020-11-08] MEDS: Normal Saline Flush 10 ML SYR IVP ×2 (10:19→10:20)
[2020-11-08] MEDS: Normal Saline - Diluent 50 ML VIAL IV (10:19)
[2020-11-08] MEDS: Lactated Ringers 1,000 ML 1000 ML IV (10:20)
--- NOTE | 2020-11-08 10:37 | DI.VRAD_ITS ---
PROCEDURE INFORMATION: Exam: CT Head Without Contrast Exam date and time: 11/08/2020 9:54 AM Age: 75 years old Clinical indication: Other: Fall, struck head TECHNIQUE: Imaging protocol: Computed tomography of the head without contrast. Radiation optimization: All CT scans at this facility use at least one of these dose optimization techniques: automated exposure control; mA and/or kV adjustment per patient size (includes targeted exams where dose is matched to clinical indication); or iterative reconstruction. COMPARISON: CT HEAD CERVICAL SPINE WO 09/01/2020 3:43 PM FINDINGS: Brain: There is moderate diffuse heterogeneity of the white matter attenuation, consistent with chronic white matter ischemic changes. Moderate cerebral atrophy No acute intracranial hemorrhage.. Cerebral ventricles: No ventriculomegaly. Bones/joints: Contour abnormalities in the nasal bones may represent acute or chronic nasal fractures. Paranasal sinuses: Visualized sinuses are unremarkable. No fluid levels. Mastoid air cells: Visualized mastoid air cells are well aerated. Soft tissues: Unremarkable. IMPRESSION: 1. No acute intracranial hemorrhage.. 2. Contour abnormalities in the nasal bones may represent acute or chronic nasal fractures. PROCEDURE INFORMATION: Exam: CT Cervical Spine Without Contrast Exam date and time: 11/08/2020 9:54 AM Age: 75 years old Clinical indication: Other: Fall, struck head TECHNIQUE: Imaging protocol: Computed tomography images of the cervical spine without contrast. Radiation optimization: All CT scans at this facility use at least one of these dose optimization techniques: automated exposure control; mA and/or kV adjustment per patient size (includes targeted exams where dose is matched to clinical indication); or iterative reconstruction. COMPARISON: CT HEAD CERVICAL SPINE WO 09/01/2020 3:43 PM FINDINGS: Bones/joints: Kyphosis of the cervical spine with the apex at C6 .. No acute fracture of the cervical spine. No subluxation or dislocation of the cervical spine. Anterolisthesis of C3 with respect to C4 and C5 with respect to C6 Anterior osteophyte formation C2 through C7 Degenerative changes in the facets at multiple levels Discs/Spinal canal/Neural foramina: Intervertebral disc space narrowing C4 through C7 may represent degenerative disc disease.. Posterior osteophyte formation C4 through C7 Degenerative changes at C1/C2 Thyroid: The thyroid is unremarkable Lungs: Lung apices are normal. Soft tissues: Unremarkable. IMPRESSION: 1. Kyphosis of the cervical spine with the apex at C6 .. 2. No acute fracture of the cervical spine. 3. No subluxation or dislocation of the cervical spine. 4. Intervertebral disc space narrowing C4 through C7 may represent degenerative disc disease.. Dictated and Authenticated by: Fauzia Barfield MD. Ordering:BECKIE Bianchi MD
--- NOTE | 2020-11-08 10:37 | DI.VRAD_ITS ---
PROCEDURE INFORMATION: Exam: XR Right Humerus Exam date and time: 11/08/2020 9:03 AM Age: 75 years old Clinical indication: Pain; Upper arm; Right; Patient HX: Fall; Additional info: Limited mobility - best images possible TECHNIQUE: Imaging protocol: XR Right humerus. Views: 2 or more views. COMPARISON: NM ABSCESS IMG WHOLE BODY GRP 07/04/2019 1:45 PM and right ribs 04/25/2020. FINDINGS: Bones/joints: Spur versus chronic fracture deformity of the right humerus greater tuberosity. Mid and distal humerus are intact. Right acromioclavicular separation. Multiple old healed right rib fractures. Soft tissues: Soft tissue swelling. IMPRESSION: 1. No acute fracture. 2. Stable spur or chronic fracture deformity of the right humerus greater tuberosity. 3. Right AC separation which appears chronic and unchanged from prior radiographs. Dictated and Authenticated by: Christopher Hanna MD. Ordering:BECKIE Bianchi MD
--- NOTE | 2020-11-08 10:41 | DI.VRAD_ITS ---
PROCEDURE INFORMATION: Exam: CT Chest With Contrast; Diagnostic Exam date and time: 11/08/2020 10:00 AM Age: 75 years old Clinical indication: Abdominal pain; Other: Fall, pain; Right-sided chest pain; Additional info: PT unable to hold her breath. PT unable to raise arms for scan TECHNIQUE: Imaging protocol: Diagnostic computed tomography of the chest with contrast. Radiation optimization: All CT scans at this facility use at least one of these dose optimization techniques: automated exposure control; mA and/or kV adjustment per patient size (includes targeted exams where dose is matched to clinical indication); or iterative reconstruction. Contrast material: OMNIPAQUE 350; Contrast volume: 100 ml; Contrast route: INTRAVENOUS (IV); COMPARISON: CT CHEST PE ABD PELVIS W 11/02/2020 5:23 PM FINDINGS: Thyroid: 5 mm nodule left thyroid lobe. Lungs: Right apical 11 mm spiculated nodular opacity. Left upper lobe linear atelectasis or fibrosis. Pleural spaces: Unremarkable. No pneumothorax. No pleural effusion. Heart: Unremarkable. No cardiomegaly. No pericardial effusion. Aorta: Unremarkable. No aortic aneurysm. Lymph nodes: Unremarkable. No enlarged lymph nodes. Bones/joints: Multiple bilateral chronic healed rib fractures. Unusual spur or chronic fracture deformity of the proximal right humerus. Soft tissues: Unremarkable. Other findings: Respiratory motion artifact. IMPRESSION: 1. No acute findings. 2. Right apical 11 mm spiculated opacity.For both low risk and high risk patients, consider CT Chest at 3 months, PET/CT, or biopsy. (Reference: Val) 3. Chronic healed rib fractures and deformity proximal right humerus. REFERENCES: Val Quarles, et al. Guidelines for Management of Incidental Pulmonary Nodules Detected on CT Images: From the Fleischner Society 2017. Radiology. 2017;284(1):228-243. PROCEDURE INFORMATION: Exam: CT Abdomen And Pelvis With Contrast Exam date and time: 11/08/2020 10:00 AM Age: 75 years old Clinical indication: Abdominal pain; Other: Fall, pain; Right-sided chest pain; Additional info: PT unable to hold her breath. PT unable to raise arms for scan TECHNIQUE: Imaging protocol: Computed tomography of the abdomen and pelvis with contrast. Radiation optimization: All CT scans at this facility use at least one of these dose optimization techniques: automated exposure control; mA and/or kV adjustment per patient size (includes targeted exams where dose is matched to clinical indication); or iterative reconstruction. Contrast material: OMNIPAQUE 350; Contrast volume: 100 ml; Contrast route: INTRAVENOUS (IV); COMPARISON: CT CHEST PE ABD PELVIS W 11/02/2020 5:23 PM FINDINGS: Liver: Normal. No mass. Gallbladder and bile ducts: Normal. No calcified stones. No ductal dilation. Pancreas: Normal. No ductal dilation. Spleen: Normal. No splenomegaly. Adrenal glands: Normal. No mass. Kidneys and ureters: Multiple bilateral renal cortical cysts. Largest cyst posterior cortex right kidney measuring 2.8 cm. And anterior cortex left kidney measuring 3.2 cm. Stomach and bowel: Unremarkable. No obstruction. No mucosal thickening. Appendix: No evidence of appendicitis. Intraperitoneal space: No free intraperitoneal fluid. Vasculature: Unremarkable. No abdominal aortic aneurysm. Lymph nodes: Unremarkable. No enlarged lymph nodes. Urinary bladder: Unremarkable as visualized. Reproductive: Unremarkable as visualized. Bones/joints: Thoracolumbar scoliosis. Multiple bilateral chronic healed rib fractures. No thoracic or lumbar compression deformities. Anterolisthesis L4 on L5. Soft tissues: Bilateral fat containing inguinal hernias. IMPRESSION: 1. No acute findings. 2. Bilateral renal cortical cysts. Dictated and Authenticated by: Christopher Hanna MD. Ordering:BECKIE Bianchi MD
--- NOTE | 2020-11-08 10:41 | DI.VRAD_ITS ---
PROCEDURE INFORMATION: Exam: XR Right Forearm Exam date and time: 11/08/2020 9:03 AM Age: 75 years old Clinical indication: Pain; Lower or forearm; Right; Additional info: Limited mobility - best images possible TECHNIQUE: Imaging protocol: XR Right forearm. Views: 2 views. COMPARISON: NM ABSCESS IMG WHOLE BODY GRP 07/04/2019 1:45 PM FINDINGS: Bones/joints: Normal. Soft tissues: Normal. IMPRESSION: No acute findings. Dictated and Authenticated by: Christopher Hanna MD. Ordering:BECKIE Bianchi MD
[2020-11-08] MEDS: Acetaminophen 325 MG TAB 650 MG PO (11:48)
== END 2020-11-08 12:45 | disposition home or self-care (01) ==
PROVIDERS: Emergency Provider Physician Assistant; PCP Family Medicine
DX: S09.8XXA Other specified injuries of head, initial encounter (principal); S20.211A Contusion of right front wall of thorax, initial encounter; S10.83XA Contusion of other specified part of neck, initial encounter; M79.601 Pain in right arm; W01.198A Fall on same level from slipping, tripping and stumbling with subsequent striking against other object, initial encounter; F10.10 Alcohol abuse, uncomplicated; R74.01 Elevation of levels of liver transaminase levels
CPT/HCPCS: 36415; 74177; 80053; 82550; 93005; 96360; 99285; 70450; 71260; 72125; 73060; 73090; 80320; 83735; 84484; 85025; 85610; 85730; 93010; J3490

== ENCOUNTER 2020-11-10 22:37 | Emergency (ER) | payer OTHER, SELFPAY ==
[2020-11-10] VITALS (8 sets, daily range): BP systolic 138–156; BP diastolic 79–86; PULSE 90–99; RESP 18–23; TEMP 36.6; O2SAT 94–99
--- NOTE | 2020-11-10 23:00 | DI.CT_ITS ---
EXAM: CT HEAD CERVICAL SPINE WO COMPARISON: CT CT HEAD CERVICAL SPINE WO from 11/08/2020 FINDINGS: CT examination of the cervical spine was performed without contrast administration. Severe degenerative changes of the cervical spine again noted with mid cervical kyphosis, mild anteri or subluxation C3 on C4, mild subluxation C 5 on C6 is also noted. There is no evidence of acute cervical spine fracture or dislocation. Intervertebral disc spaces are well maintained. Tracheolaryngeal structures appear intact. No cervical mass or adenopathy. Noncontrast cranial CT was performed. There is moderate generalized cerebral atrophy. No evidence of acute intracranial hemorrhage, mass effect, or midline shift. No calvarial fracture. The orbital and temporal bone structures appear intact. Visualized mastoid air cells and paranasal sinuses appear clear. IMPRESSION: No evidence of acute cervical spine injury. No evidence of acute intracranial injury. RADIATION DOSE DELIVERED: 1,233.05mGy.cm Total DLP 1,233.05mGy.cm Total DLP DATA REPOSITORY: All CT scans at this facility are submitted to the National Radiology Data Registry (NRDR) Dose Index Registry (DIR) with the [employer] (ACR). RADIATION OPTIMIZATION: All CT scans at this facility use at least one of these dose optimization te chniques: automated exposure control; mA and/or kV adjustment per patient size (includes targeted exa ms where dose is matched to clinical indication); or iterative reconstruction.
--- NOTE | 2020-11-10 23:00 | DI.CT_ITS ---
EXAM: CT CHEST/ABD/PEL WO TECHNIQUE: CT examination of the chest, abdomen, and pelvis was performed with bolus infusion of 100 cc of Omnipaque 350. COMPARISON: CT CT CHEST/ABD/PEL W from 11/08/[address] THORACIC LUMBAR SPINE REC from 11/10/2020 FINDINGS: There is no evidence of a thoracic vascular injury. The lungs are predominantly clear with note agai n made of a stable 11 millimeter in diameter right upper pulmonary.. No pneumothorax or pleural effu ninoska. No mediastinal hematoma. No adenopathy in the chest. Tracheobronchial tree appears intact. The liver, spleen, and pancreas appear normal. Gallbladder and bile ducts are normal. Adrenals and kidneys are unremarkable. No evidence of urinary tract injury or obstruction. No abdominal or pelvic vascular injury seen. Stable presacral lobulated mass again noted. No signif icant abdominal wall hernia or hematoma. No evidence of bowel injury. No fracture identified in the region surveyed. Thoracic and lumbar spine reconstructions were obtained which also show no evidence fracture. IMPRESSION: No evidence of acute injury of the chest, abdomen, or pelvis. RADIATION DOSE DELIVERED: Total DLP Total DLP DATA REPOSITORY: All CT scans at this facility are submitted to the National Radiology Data Registry (NRDR) Dose Index Registry (DIR) with the [employer] ([employer]). RADIATION OPTIMIZATION: All CT scans at this facility use at least one of these dose optimization te chniques: automated exposure control; mA and/or kV adjustment per patient size (includes targeted exa ms where dose is matched to clinical indication); or iterative reconstruction.
--- NOTE | 2020-11-10 23:07 | ED.GENADUL_ITS ---
Discharge Plan Disposition Patient Disposition: HOME Condition: Stable Discharge Details Clinical Impression: Alcohol abuse, Fall, Blunt trauma of multiple sites of trunk, Cervical strain, Blunt head trauma Primary Care Provider: Lavelle Galindo ED Provider: Blaze Mccarthy [place] Meds and New Rx's Prescriptions: Continued Xiidra 5 % dropperette 1 drp ophthalmic (eye) BID RF: 0 magnesium oxide 400 mg magnesium capsule 400 mg PO BID Qty: 180 RF: 3 celecoxib [Celebrex] 100 mg capsule 100 mg PO BID Qty: 60 RF: 2 cholestyramine (with sugar) 4 gram powder 1 pwd PO BID Qty: 378 RF: 0 Ensure Active High Protein Liquid 414 ml PO DAILY Qty: 96920 RF: 11 dicyclomine 10 mg capsule 10 mg PO QID PRN (Reason: belly pain) Qty: 40 RF: 0 sucralfate 1 gram tablet 1 g PO AC & HS Qty: 120 RF: 5 ipratropium-albuterol 0.5 mg-3 mg(2.5 mg base)/3 mL solution for nebulization 3 ml IH QID PRN (Reason: shortness of breath) Qty: 90 RF: 3 fluticasone propionate 50 mcg/actuation spray,suspension 1 spray NS daily prn Qty: 9.9 RF: 2 amlodipine 10 mg tablet 10 mg PO DAILY Qty: 90 RF: 3 gabapentin 300 mg capsule 300 mg PO BID Qty: 90 RF: 5 hydrochlorothiazide 12.5 mg tablet 12.5 mg PO DAILY Qty: 90 RF: 3 metoprolol tartrate 50 mg tablet 50 mg PO BID Qty: 180 RF: 3 multivitamin [Multiple Vitamins] Tablet 1 tab PO DAILY Qty: 90 RF: 3 pantoprazole 40 mg tablet,delayed release (DR/EC) 40 mg PO DAILY Qty: 90 RF: 3 potassium chloride [Klor-Con M10] 10 mEq tablet,ER particles/crystals 10 meq PO DAILY Qty: 90 RF: 3 venlafaxine 37.5 mg capsule,extended release 24hr 37.5 mg PO DAILY Qty: 30 RF: 11 venlafaxine 150 mg capsule,extended release 24hr 150 mg PO DAILY Qty: 30 RF: 11 thiamine HCl (vitamin B1) 100 mg tablet 100 mg PO DAILY Qty: 90 RF: 3 folic acid 1 mg tablet 1 mg PO DAILY Qty: 90 RF: 3 doxepin 3 mg tablet 3 mg PO BID PRN (Reason: itch) Qty: 30 RF: 0 hydroxyzine HCl 25 mg tablet 25 mg PO TID PRN (Reason: itching) Qty: 30 RF: 2 Refresh Plus 0.5 % Dropperette 1 drp OU Q4H WHILE AWAKE Qty: 30 RF: 0 diphenhydramine HCl 25 mg Capsule 25 mg PO Q4H PRN PRNQty: 20 RF: 0 Restasis 0.05 % Dropperette 0.4 ml OU BID Qty: 10 RF: 0 hydrocortisone 1 % Cream 0 g topical TID Qty: 1 RF: 2 Eucerin Cream 0 g topical TID Qty: 1 RF: 1 ascorbic acid (vitamin C) [Vitamin C] 500 mg Tablet 500 mg PO BID Qty: 30 RF: 0 Bio-K plus 50 billion cell Capsule,Delayed Release(Dr/Ec) 1 cap PO DAILY Qty: 60 RF: 0 sennosides [Senokot] 8.6 mg tablet 8.6 mg PO PRN PRNRF: 0 chlordiazepoxide HCl 25 mg capsule 25 mg PO Q12H Qty: 7 RF: 0 Discharge Instructions Instructions: Abuse of Alcohol (ED) Additional Instructions: Follow up with your primary care provider within 1 week if you feel more ill, have severe worsening pain or difficulty breathing return to the emergency department Medical Decision Making 75 yo female with hx of alcohol abuse with falls, htn, hld, comes in with chief complaint of back pain. She states she tripped over her dog and fell earlier today and finally called ems. She is noted to have smell of alcohol on her breath and doesn't answer how much she had to drink and is only oriented to her name, is not sure of where she is or year with no slurred speech and no focal neuro deficits. She Has a mild headache, left lateral neck pain, left lateral chest pain in mid axillary line over the 5-7 ribs, and pain over mid t and l spine. Normal sensation in the extremites and pulses with full rom. Give the fall will obtain CT head/cspine/chest/abd/pelvis as well as T and L spine recons. She has multiple contusions of various healing stages on her face, chest and abdomen and falls frequently and has declined living elsewhere inthe past other than her home Imaging shows no acute findings, still has upper lobe nodule that is unchanged in the left lung. Will monitor until clinically sober pt now caox4 with clear speech and is able to ambulate using walker unassisted which is her baseline and has a walker at her house. She is declining to stay to speak with care management in the morning and she demands to be discharged and has capacity to make her own decisions. She has no ride, rct will be paged to try and bring her home. No midline spine pain on exam. Differential Diagnosis Differential Diagnosis: fracture, alcohol abuse, rib fracture, tbi Medical Records Medical records reviewed: Yes I reviewed the patient's medical records. Imaging Data Radiologic Study: Attestation: I personally reviewed and interpreted this imaging study as follows: Imaging: CT Scan Radiologist's impression: no acute findings on head/cspine ct Radiologic Study #2: Attestation: I personally reviewed and interpreted this imaging study as follows: Imaging: CT Scan Radiologist's impression: IMPRESSION: 1. No acute fracture. 2. Severe degenerative disc disease at L1-L2, L2-L3, and L4-L5. 3. Degenerative grade 1 anterolisthesis at L4-L5. 4. Moderate right neural foraminal stenosis at L2-L3. IMPRESSION: 1. No acute fracture. 2. Multiple healing fractures of bilateral posterior ribs 3. Ectasia of the ascending thoracic aorta. 4. 11 mm right upper lobe ground-glass nodule, unchanged from the recent comparison exam Radiologic Study #3: Attestation: I personally reviewed and interpreted this imaging study as follows: Imaging: CT Scan Radiologist's impression: no acute findings on chest/abd/pelvis ct HPI General Mode of arrival: EMS . Date/Time Provider Initiated Documentation: 11/10/20 22:39 . Limitations to Documentation: no limitations . Information obtained by: patient . History of Present Illness 75 year old F presents to the emergency department with the chief complaint of back pain, described as moderate, Quality is described as aching, and is localized to the back. Patient reports no radiation. and it has been constant. No relieving factors improve symptom(s), No exacerbating factors reported . Patient did receive the following treatments prior to arrival, none Related Data Home Medications Medication Instructions Recorded Confirmed Refresh Plus 1 drp OU Q4H WHILE AWAKE #30 each 06/20/19 11/08/20 magnesium oxide 400 mg PO BID #180 cap 07/17/19 11/08/20 food supplemt, lactose-reduced 414 ml PO DAILY #46702 ml 08/24/19 11/08/20 dicyclomine 10 mg capsule 10 mg PO QID PRN #40 cap 11/06/19 11/08/20 sucralfate 1 gram tablet 1 g PO AC & HS #120 tab 11/06/19 11/08/20 ipratropium 0.5 mg-albuterol 3 mg 3 ml IH QID PRN #90 ml 01/04/20 11/08/20 (2.5 mg base)/3 mL nebulization soln fluticasone propionate 50 1 spray NS daily prn #9.9 ml 03/25/20 11/08/20 mcg/actuation nasal spray,suspension Bio-K plus 1 cap PO DAILY #60 cap 05/12/20 11/08/20 ascorbic acid (vitamin C) [Vitamin 500 mg PO BID #30 tab 05/12/20 11/08/20 C] celecoxib 100 mg capsule 100 mg PO BID #60 cap 06/13/20 11/08/20 lifitegrast 5 % eye drops in a 1 drp OPHTHALMIC (EYE) BID 08/05/20 11/08/20 dropperette sennosides [Senokot] 8.6 mg PO PRN PRN 08/08/20 11/08/20 chlordiazepoxide HCl 25 mg PO Q12H #7 cap 08/09/20 11/08/20 cholestyramine (with sugar) 4 gram 1 pwd PO BID #378 g 08/27/20 11/08/20 oral powder amlodipine 10 mg tablet 10 mg PO DAILY #90 tab 09/05/20 11/08/20 folic acid 1 mg tablet 1 mg PO DAILY #90 tab 09/05/20 11/08/20 gabapentin 300 mg capsule 300 mg PO BID #90 cap 09/05/20 11/08/20 hydrochlorothiazide 12.5 mg tablet 12.5 mg PO DAILY #90 tab 09/05/20 11/08/20 metoprolol tartrate 50 mg tablet 50 mg PO BID #180 tab 09/05/20 11/08/20 multivitamin 1 tab PO DAILY #90 tab 09/05/20 11/08/20 pantoprazole 40 mg tablet,delayed 40 mg PO DAILY #90 tab 09/05/20 11/08/20 release potassium chloride 10 mEq 10 meq PO DAILY #90 tab 09/05/20 11/08/20 tablet,extended release(part/cryst) thiamine HCl (vitamin B1) 100 mg 100 mg PO DAILY #90 tab 09/05/20 11/08/20 tablet venlafaxine 150 mg 150 mg PO DAILY #30 cap 09/05/20 11/08/20 capsule,extended release 24 hr venlafaxine 37.5 mg 37.5 mg PO DAILY #30 cap 09/05/20 11/08/20 capsule,extended release 24 hr doxepin 3 mg tablet 3 mg PO BID PRN #30 tab 10/15/20 11/08/20 hydroxyzine HCl 25 mg tablet 25 mg PO TID PRN #30 tab 10/17/20 11/08/20 Eucerin 0 g TOPICAL TID #1 unit 10/25/20 11/08/20 Restasis 0.4 ml OU BID #10 ea 10/25/20 11/08/20 diphenhydramine HCl 25 mg PO Q4H PRN PRN #20 cap 10/25/20 11/08/20 hydrocortisone 0 g TOPICAL TID #1 applic 10/25/20 11/08/20 Previous Rx's Medication Instructions Recorded Refresh Plus 1 drp OU Q4H WHILE AWAKE #30 each 06/20/19 magnesium oxide 400 mg PO BID #180 cap 07/17/19 food supplemt, lactose-reduced 414 ml PO DAILY #48651 ml 08/24/19 dicyclomine 10 mg capsule 10 mg PO QID PRN #40 cap 11/06/19 sucralfate 1 gram tablet 1 g PO AC & HS #120 tab 11/06/19 ipratropium 0.5 mg-albuterol 3 mg 3 ml IH QID PRN #90 ml 01/04/20 (2.5 mg base)/3 mL nebulization soln fluticasone propionate 50 1 spray NS daily prn #9.9 ml 03/25/20 mcg/actuation nasal spray,suspension Bio-K plus 1 cap PO DAILY #60 cap 05/12/20 ascorbic acid (vitamin C) [Vitamin 500 mg PO BID #30 tab 09/14/20 C] celecoxib 100 mg capsule 100 mg PO BID #60 cap 06/13/20 chlordiazepoxide HCl 25 mg PO Q12H #7 cap 08/09/20 cholestyramine (with sugar) 4 gram 1 pwd PO BID #378 g 08/27/20 oral powder amlodipine 10 mg tablet 10 mg PO DAILY #90 tab 09/05/20 folic acid 1 mg tablet 1 mg PO DAILY #90 tab 09/05/20 gabapentin 300 mg capsule 300 mg PO BID #90 cap 09/05/20 hydrochlorothiazide 12.5 mg tablet 12.5 mg PO DAILY #90 tab 09/05/20 metoprolol tartrate 50 mg tablet 50 mg PO BID #180 tab 09/05/20 multivitamin 1 tab PO DAILY #90 tab 09/05/20 pantoprazole 40 mg tablet,delayed 40 mg PO DAILY #90 tab 09/05/20 release potassium chloride 10 mEq 10 meq PO DAILY #90 tab 09/05/20 tablet,extended release(part/cryst) thiamine HCl (vitamin B1) 100 mg 100 mg PO DAILY #90 tab 09/05/20 tablet venlafaxine 150 mg 150 mg PO DAILY #30 cap 09/05/20 capsule,extended release 24 hr venlafaxine 37.5 mg 37.5 mg PO DAILY #30 cap 09/05/20 capsule,extended release 24 hr doxepin 3 mg tablet 3 mg PO BID PRN #30 tab 10/15/20 hydroxyzine HCl 25 mg tablet 25 mg PO TID PRN #30 tab 10/17/20 Eucerin 0 g TOPICAL TID #1 unit 10/25/20 Restasis 0.4 ml OU BID #10 ea 10/25/20 diphenhydramine HCl 25 mg PO Q4H PRN PRN #20 cap 10/25/20 hydrocortisone 0 g TOPICAL TID #1 applic 10/25/20 Allergies Allergy/AdvReac Type Severity Reaction Status Date / Time Penicillins Allergy Mild Rash Verified 11/08/20 09:02 ramipril Allergy Unknown ITCHING Verified 11/08/20 09:02 meperidine [From Demerol] AdvReac Severe Nausea Verified 11/08/20 09:02 bupropion AdvReac Mild GI upset Verified 11/08/20 09:02 AMBER Inhibitors AdvReac Unknown COUGH Verified 11/08/20 09:02 alendronate sodium AdvReac Unknown GI Distress Verified 11/08/20 09:02 clarithromycin AdvReac Unknown intolerant Verified 11/08/20 09:02 paroxetine AdvReac Unknown Diarrhea Verified 11/08/20 09:02 General Stated Complaint: Orthopedic JORDAN: 3 Review of Systems All systems reviewed & are unremarkable except as noted in HPI and below Constitutional Constitutional: Denies chills and Denies fever(s) Cardiovascular Cardiovascular: Denies dyspnea Respiratory Respiratory: Denies cough and Denies dyspnea Gastrointestinal Gastrointestinal: Denies nausea and Denies vomiting Genitourinary Genitourinary: Denies dysuria Musculoskeletal Musculoskeletal: Denies joint swelling Integumentary/Breasts Skin/Breast: Denies rash Allergic/Immunologic Allergic/Immunologic: Denies urticaria [facility] Medical History (Updated 11/11/20 @ 01:23 by Blaze Mccarthy MD) Adjustment disorder with depressed mood AMBER (acute kidney injury) Alcohol abuse Alcoholic gastritis without bleeding Alcoholic ketosis Allergic rhinitis Anemia (12/20/16) Back pain, chronic Calcific tendinitis of left shoulder CAP (community acquired pneumonia) Cataract (11/07/15) Cervical radicular pain neck pain and DJD [facility] 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) pls refrain from alcohol Chronic alcoholism she will not stop drinking unless she checks with me, so that we can help her avert withdrawal I do not think she is capable on her own--she would need placement to achieve required goal of 3 months of sobriety Chronic diarrhea Closed displaced fracture of proximal phalanx of right index finger with routine healing (06/03/17) Closed right humeral fracture Contusion of left little finger Corneal ulcer, right (~08/23/18) 08/23/18; [facility] Dehydration Depression Diarrhea Discharge planning issues DVT prophylaxis Dystrophic nail Elev transaminase/LDH due to alcohol Epigastric abdominal pain Fall as cause of accidental injury at home as place of occurrence Genital herpes simplex recurrent gential; suppressive Valtrex GERD (gastroesophageal reflux disease) GI bleed (12/20/16) Head contusion Headache History of alcohol abuse Humerus fracture (09/12/19) Right Hyperlipidemia Hypertension Incidental lung nodule, greater than or equal to 8mm 1cm, spiculated, stable for many years, recommend f/u in 6 mo Macrocytosis (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 Multiple rib fractures 03/11/19 [facility] Nausea and vomiting in adult Non-cardiac chest pain (09/21/16[place] [facility] [place] MP Osteoarthritis Osteopenia Palliative care patient (03/21/17) Pancreatitis, alcoholic, acute Peripheral edema Pleural effusion on left 03/11/19 [facility] Presacral mass (~09/15/18) 09/15/18 [facility] Right rib fracture Sacral mass Sciatica right, epidural injuections [facility] Tendinitis of left rotator cuff Tubular adenoma of colon (01/28/17) Urinary incontinence 01[place]24[place] [facility] [place] UTI (urinary tract infection) 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 Bladder repair. Ligation of fallopian tube Repair bladder injury, simple Family History Mother No problems noted. Father , DROWNED at age 50. No problems noted. Sister Personal history of malignant neoplasm MELANOMA Sister No problems noted. Grandfather Personal history of malignant neoplasm STOMACH Grandfather Personal history of malignant neoplasm PROSTATE Grandmother Heart disease NC Acute ill-defined cerebrovascular disease Grandmother Personal history of malignant neoplasm UTERINE Aunt , NC Heart disease NC Aunt , NC Heart disease Brother No problems noted. Social History Smoking/Tobacco Use Status: Former Tobacco Use Quit Date: 08/05/20 Smoking risk assessment performed?: Yes Alcohol Intake: current Alcohol Intake frequency: 3 or more drinks per day Alcohol type: hard liquor Drug use: Never Substance use type: does not use Details: last ETOH yesterday afternoon Current gender identity: female Do you feel safe at home: Yes Do you feel safe in your relationship?: Yes Exam Const General: no acute distress Orientation: alert HENMT Head: normal to inspection Ears: external ears normal General nose exam: external nose normal Mouth: moist mucous membranes Eyes General: appearance normal, both eyes and all related structures Neck Neck: normal visual inspection Resp Effort & Inspection: normal respiratory effort and able to speak in complete sentences Cardio Rate: regular rate Skin General skin exam: no rashes or lesions noted Neuro General: patient alert Extrem General: normal to inspection Course Vital Signs Vital signs: Vital Signs Temperature 36.6 C 11/10/20 22:32 Pulse 92 H 11/10/20 22:32 Respiratory Rate 18 11/10/20 22:32 Blood Pressure 156/83 H 11/10/20 22:32 Pulse Oximetry 94 11/10/20 22:32 Temperature 36.6 C 11/10/20 22:32 Temperature Source Temporal Artery Scan 11/10/20 22:32 Pulse 92 H 11/10/20 22:32 Respiratory Rate 18 11/10/20 22:32 Respiratory Effort Non-Labored 11/10/20 22:37 Blood Pressure 156/83 H 11/10/20 22:32 Pulse Oximetry 94 11/10/20 22:32 Oxygen Delivery Method Room Air 11/10/20 22:32 Oxygen Flow Rate 0 11/10/20 22:32 Pain Level 2 11/10/20 22:32
--- NOTE | 2020-11-10 23:57 | DI.VRAD_ITS ---
PROCEDURE INFORMATION: Exam: CT Head Without Contrast Exam date and time: 11/10/2020 11:18 PM Age: 75 years old Clinical indication: Injury or trauma; Blunt trauma (contusions or hematomas); Consciousness not specified; Injury date: 11/10/20; Injury details: Fall, pain +etoh TECHNIQUE: Imaging protocol: Computed tomography of the head without contrast. Radiation optimization: All CT scans at this facility use at least one of these dose optimization techniques: automated exposure control; mA and/or kV adjustment per patient size (includes targeted exams where dose is matched to clinical indication); or iterative reconstruction. COMPARISON: CT HEAD CERVICAL SPINE WO 11/08/2020 9:54 AM FINDINGS: Brain: There is [id number] age related parenchymal atrophy with prominence of the cortical sulci. Periventricular and deep white matter hypodensities are consistent with sequela of chronic microvascular ischemic disease. No midline shift or herniation. No acute intracranial hemorrhage. Cerebral ventricles: No ventriculomegaly. Bones/joints: Stable contour deformity of the nasal bones suggestive of prior fracture. No acute osseous finding. Paranasal sinuses: Visualized sinuses are unremarkable. No fluid levels. Mastoid air cells: No mastoid effusion. Soft tissues: No focal soft tissue abnormality. IMPRESSION: No acute intracranial finding. PROCEDURE INFORMATION: Exam: CT Cervical Spine Without Contrast Exam date and time: 11/10/2020 11:18 PM Age: 75 years old Clinical indication: Injury or trauma; Blunt trauma (contusions or hematomas); Consciousness not specified; Injury date: 11/10/20; Injury details: Fall, pain +etoh TECHNIQUE: Imaging protocol: Computed tomography images of the cervical spine without contrast. Radiation optimization: All CT scans at this facility use at least one of these dose optimization techniques: automated exposure control; mA and/or kV adjustment per patient size (includes targeted exams where dose is matched to clinical indication); or iterative reconstruction. COMPARISON: CT HEAD CERVICAL SPINE WO 11/08/2020 9:54 AM FINDINGS: Bones/joints: No acute fracture. Redemonstrated straightening with reversal of normal cervical lordosis with curve apex centered at C6. Redemonstrated grade 1 anterolisthesis of C3 on C4 as well as C5 on C6, stable to prior, possibly secondary to degenerative facet changes. There are moderate bilateral degenerative facet changes at the C2-C6 levels. Discs/Spinal canal/Neural foramina: Moderate to severe intervertebral disc height loss at C4-C5 with moderate intervertebral disc height loss at the C5-C7 levels. There is mild disc height loss at C3-C4. Evaluation of the C7-T1 level mildly limited secondary to exclusion from field of view. There is mild bilateral osseous neural foraminal narrowing at the C3-C5 levels with mild left osseous neural foraminal narrowing at the C5-C7 levels. There is mild relative osseous central canal narrowing at the C4-C6 levels, similar to prior. Lymph nodes: No pathologically sized nodes by CT size criteria. Soft tissues: No focal abnormality. IMPRESSION: 1. No acute fracture. No acute/traumatic spondylolisthesis. 2. Multilevel cervical spondylosis as discussed, similar to comparison. Dictated and Authenticated by: Jg Kaur MD. Ordering:EDUAR Thakur MD
[2020-11-11] VITALS: PULSE 91; RESP 24; O2SAT 95
[2020-11-11 00:01] VITALS: BP 135/78; PULSE 91; PULSE 92; RESP 27; O2SAT 95
[2020-11-11 00:10] VITALS: PULSE 90; RESP 18; O2SAT 98
[2020-11-11 00:16] VITALS: BP 139/84; PULSE 89; PULSE 93; RESP 20; O2SAT 97
--- NOTE | 2020-11-11 00:18 | DI.VRAD_ITS ---
PROCEDURE INFORMATION: Exam: CT Thoracic Spine Without Contrast Exam date and time: 11/10/2020 11:30 PM Age: 75 years old Clinical indication: Low back pain; Pain in thoracic spine; Other: Not specified TECHNIQUE: Imaging protocol: Computed tomography images of the thoracic spine without contrast. Radiation optimization: All CT scans at this facility use at least one of these dose optimization techniques: automated exposure control; mA and/or kV adjustment per patient size (includes targeted exams where dose is matched to clinical indication); or iterative reconstruction. COMPARISON: CT THORACIC LUMBAR SPINE REC 09/01/2020 3:43 PM FINDINGS: Vertebrae: Moderate to severe multilevel lower cervical degenerative disc disease. Inferior endplate indentation at T12, unchanged. Other thoracic vertebral body heights and disc spaces are maintained. No focal suspicious osseous lesion. Slight S-shaped thoracic scoliosis. Marked multilevel lower cervical facet arthropathy. Discs/Spinal canal/Neural foramina: No significant disc protrusion. No severe spinal canal stenosis. No significant neural foraminal narrowing. Other bones/joints: Multiple healing bilateral posterior rib fractures, similar to the comparison exam. Soft tissues: Unremarkable. Vasculature: 3.8 cm diameter ascending thoracic aorta. Lungs: 11 mm apical right upper lobe ground-glass nodule, unchanged. Dependent subsegmental atelectasis. IMPRESSION: 1. No acute fracture. 2. Multiple healing fractures of bilateral posterior ribs. 3. Ectasia of the ascending thoracic aorta. 4. 11 mm right upper lobe ground-glass nodule, unchanged from the recent comparison exam. PROCEDURE INFORMATION: Exam: CT Lumbar Spine Without Contrast Exam date and time: 11/10/2020 11:30 PM Age: 75 years old Clinical indication: Low back pain; Pain in thoracic spine; Other: Not specified TECHNIQUE: Imaging protocol: Computed tomography images of the lumbar spine without contrast. Radiation optimization: All CT scans at this facility use at least one of these dose optimization techniques: automated exposure control; mA and/or kV adjustment per patient size (includes targeted exams where dose is matched to clinical indication); or iterative reconstruction. COMPARISON: CT THORACIC LUMBAR SPINE REC 09/01/2020 3:43 PM FINDINGS: Vertebrae: Severe L4-L5 degenerative disc disease with 6 mm grade 1 anterolisthesis, unchanged from the comparison exam. Severe degenerative disc disease at L1-L2 and L2-L3, unchanged. No acute fracture or focal suspicious osseous lesion. Moderate multilevel lower lumbar facet arthropathy, unchanged. Mild lumbar levoscoliosis. Discs/Spinal canal/Neural foramina: Moderate right neural foraminal stenosis at L2-L3. No significant central canal or other neural foraminal stenosis. Vasculature: Mild calcified atherosclerotic disease. No abdominal aortic aneurysm. Soft tissues: Unremarkable. IMPRESSION: 1. No acute fracture. 2. Severe degenerative disc disease at L1-L2, L2-L3, and L4-L5. 3. Degenerative grade 1 anterolisthesis at L4-L5. 4. Moderate right neural foraminal stenosis at L2-L3. Dictated and Authenticated by: Saeed Givens MD. Ordering:EDUAR Thakur MD
--- NOTE | 2020-11-11 00:30 | DI.VRAD_ITS ---
PROCEDURE INFORMATION: Exam: CT Chest Without Contrast; Diagnostic Exam date and time: 11/10/2020 11:30 PM Age: 75 years old Clinical indication: Injury or trauma; Generalized; Blunt trauma (contusions or hematomas); Injury date: 11/10/20; Injury details: Fall, pain, +etoh; Patient HX: PT unable to answer questions about pain, does state shoulder pain but unable to tell US which one. TECHNIQUE: Imaging protocol: Diagnostic computed tomography of the chest without contrast. Radiation optimization: All CT scans at this facility use at least one of these dose optimization techniques: automated exposure control; mA and/or kV adjustment per patient size (includes targeted exams where dose is matched to clinical indication); or iterative reconstruction. COMPARISON: CT CHEST/ABD/PEL W 11/08/2020 10:02 AM FINDINGS: Lungs: 11 mm ground-glass nodule in the apical right upper lobe, unchanged. Pleural spaces: Unremarkable. No pneumothorax. No pleural effusion. Heart: Mild left ventricular hypertrophy. No pericardial effusion. Dependent subsegmental atelectasis. Aorta: 3.8 cm diameter ascending thoracic aorta. Lymph nodes: Unremarkable. No enlarged lymph nodes. Bones/joints: Healing posterior rib fractures, 3 through 10 on the right and 4 through 10 on the left. Marked multilevel lower cervical spondylosis. Soft tissues: Unremarkable. IMPRESSION: 1. Unchanged apical right upper lobe nodule. 2. Left ventricular hypertrophy. 3. Ectasia of the ascending thoracic aorta. 4. Multiple bilateral healed posterior rib fractures. PROCEDURE INFORMATION: Exam: CT Abdomen And Pelvis Without Contrast Exam date and time: 11/10/2020 11:30 PM Age: 75 years old Clinical indication: Injury or trauma; Generalized; Blunt trauma (contusions or hematomas); Injury date: 11/10/20; Injury details: Fall, pain, +etoh; Patient HX: PT unable to answer questions about pain, does state shoulder pain but unable to tell US which one. TECHNIQUE: Imaging protocol: Computed tomography of the abdomen and pelvis without contrast. Radiation optimization: All CT scans at this facility use at least one of these dose optimization techniques: automated exposure control; mA and/or kV adjustment per patient size (includes targeted exams where dose is matched to clinical indication); or iterative reconstruction. COMPARISON: CT CHEST/ABD/PEL W 11/08/2020 10:02 AM FINDINGS: Mediastinal space: Small sliding hiatal hernia. Liver: Normal. No mass. Gallbladder and bile ducts: Normal. No calcified stones. No ductal dilation. Pancreas: Normal. No ductal dilation. Spleen: Normal. No splenomegaly. Adrenal glands: Normal. No mass. Kidneys and ureters: Bilateral renal cysts are unchanged. Stomach and bowel: Unremarkable. No obstruction. No mucosal thickening. Appendix: Normal appendix. Intraperitoneal space: Unremarkable. No free air. No significant fluid collection. Vasculature: Unremarkable. No abdominal aortic aneurysm. Lymph nodes: Unremarkable. No enlarged lymph nodes. Urinary bladder: Unremarkable as visualized. Reproductive: Unremarkable as visualized. Bones/joints: Lumbar levoscoliosis and multilevel spondylosis, detailed in the lumbar spine report on the same day. No acute fracture or focal suspicious osseous lesion. Soft tissues: Small bilateral fat filled inguinal hernias. IMPRESSION: 1. No acute fracture or internal organ injury. 2. Lumbar levoscoliosis and multilevel spondylosis. 3. Small bilateral fat filled inguinal hernias. 4. Bilateral benign renal cysts. No imaging follow-up required. Dictated and Authenticated by: Saeed Givens MD. Ordering:EDUAR Thakur MD
--- NOTE | 2020-11-11 01:24 | NUR.NOTE ---
Addendum entered by Maribeth Randhawa 11/11/20 01:28: Dr Mccarthy gives ok for pt to go home via [facility]. [facility] contacted, awaiting for confirmation on time of arrival. Pt back in bed. rails x 2 . visual of pt from nurses station. Original Note: Nursing Note: Pt awakens and makes eye contact, reports, I can walk and want to go home. THis RN and 2nd RN ambulates next to pt as she uses walker with excellent coordination and maneuvers around corners, follows commands. Dr Mccarthy watches pt ambulate and gives ok
--- NOTE | 2020-11-11 01:35 | NUR.NOTE ---
Nursing Note: [facility] calls back, reports will arrive@ ED 0315.
[2020-11-11 02:07] VITALS: BP 142/88; PULSE 78; RESP 18; TEMP 36.8; O2SAT 98
== END 2020-11-11 02:15 | disposition home or self-care (01) ==
PROVIDERS: Emergency Provider Emergency Medicine; PCP Family Medicine
DX: S09.8XXA Other specified injuries of head, initial encounter (principal); S16.1XXA Strain of muscle, fascia and tendon at neck level, initial encounter; M54.5 Low back pain; M54.6 Pain in thoracic spine; R07.81 Pleurodynia; W01.0XXA Fall on same level from slipping, tripping and stumbling without subsequent striking against object, initial encounter; F10.10 Alcohol abuse, uncomplicated
CPT/HCPCS: 71250; 99284; 70450; 72125; 74176

== ENCOUNTER 2020-11-12 10:49 | Observation (INO) | payer OTHER, SELFPAY ==
[2020-11-12 11:04] VITALS: PULSE 100; RESP 20; TEMP 36.6; O2SAT 93
--- NOTE | 2020-11-12 11:25 | ED.GENADUL_ITS ---
Discharge Plan Disposition Patient Disposition: STILL A PATIENT Condition: Stable Discharge Details Clinical Impression: Suicidal ideation, Alcohol abuse, Acute UTI Primary Care Provider: Lavelle Galindo ED Provider: Monica Yarbrough Home Meds and New Rx's Prescriptions: No Action Xiidra 5 % dropperette 1 drp ophthalmic (eye) BID RF: 0 magnesium oxide 400 mg magnesium capsule 400 mg PO BID Qty: 180 RF: 3 celecoxib [Celebrex] 100 mg capsule 100 mg PO BID Qty: 60 RF: 2 cholestyramine (with sugar) 4 gram powder 1 pwd PO BID Qty: 378 RF: 0 Ensure Active High Protein Liquid 414 ml PO DAILY Qty: 02158 RF: 11 dicyclomine 10 mg capsule 10 mg PO QID PRN (Reason: belly pain) Qty: 40 RF: 0 sucralfate 1 gram tablet 1 g PO AC & HS Qty: 120 RF: 5 ipratropium-albuterol 0.5 mg-3 mg(2.5 mg base)/3 mL solution for nebulization 3 ml IH QID PRN (Reason: shortness of breath) Qty: 90 RF: 3 fluticasone propionate 50 mcg/actuation spray,suspension 1 spray NS daily prn Qty: 9.9 RF: 2 amlodipine 10 mg tablet 10 mg PO DAILY Qty: 90 RF: 3 gabapentin 300 mg capsule 300 mg PO BID Qty: 90 RF: 5 hydrochlorothiazide 12.5 mg tablet 12.5 mg PO DAILY Qty: 90 RF: 3 metoprolol tartrate 50 mg tablet 50 mg PO BID Qty: 180 RF: 3 multivitamin [Multiple Vitamins] Tablet 1 tab PO DAILY Qty: 90 RF: 3 pantoprazole 40 mg tablet,delayed release (DR/EC) 40 mg PO DAILY Qty: 90 RF: 3 potassium chloride [Klor-Con M10] 10 mEq tablet,ER particles/crystals 10 meq PO DAILY Qty: 90 RF: 3 venlafaxine 37.5 mg capsule,extended release 24hr 37.5 mg PO DAILY Qty: 30 RF: 11 venlafaxine 150 mg capsule,extended release 24hr 150 mg PO DAILY Qty: 30 RF: 11 thiamine HCl (vitamin B1) 100 mg tablet 100 mg PO DAILY Qty: 90 RF: 3 folic acid 1 mg tablet 1 mg PO DAILY Qty: 90 RF: 3 doxepin 3 mg tablet 3 mg PO BID PRN (Reason: itch) Qty: 30 RF: 0 hydroxyzine HCl 25 mg tablet 25 mg PO TID PRN (Reason: itching) Qty: 30 RF: 2 Refresh Plus 0.5 % Dropperette 1 drp OU Q4H WHILE AWAKE Qty: 30 RF: 0 diphenhydramine HCl 25 mg Capsule 25 mg PO Q4H PRN PRNQty: 20 RF: 0 Restasis 0.05 % Dropperette 0.4 ml OU BID Qty: 10 RF: 0 hydrocortisone 1 % Cream 0 g topical TID Qty: 1 RF: 2 Eucerin Cream 0 g topical TID Qty: 1 RF: 1 ascorbic acid (vitamin C) [Vitamin C] 500 mg Tablet 500 mg PO BID Qty: 30 RF: 0 Bio-K plus 50 billion cell Capsule,Delayed Release(Dr/Ec) 1 cap PO DAILY Qty: 60 RF: 0 sennosides [Senokot] 8.6 mg tablet 8.6 mg PO PRN PRNRF: 0 chlordiazepoxide HCl 25 mg capsule 25 mg PO Q12H Qty: 7 RF: 0 naltrexone 50 mg tablet 50 mg PO DAILY RF: 0 amlodipine 5 mg tablet 5 mg PO DAILY RF: 0 Medical Decision Making <CELINA Kidd - Last Filed: 11/12/20 16:03> This is a 75-year-old female presenting to the ER via EMS for evaluation, admitting to alcohol use overnight, told EMS that she was suicidal. Patient states to me that she just wants to go home, denying any active suicidal thoughts or plan. The story I received from EMS is that she had stated she wanted to hurt herself, and was planning to cut herself with scissors. Patient reports chronic back pain but has no acute medical concerns or complaints at this time. Patient is disheveled, initially uncooperative and unwilling to actively partake in HPI or examination. Subsequently with multiple attempts she is somewhat willing to answer my questions and partake in examination. Will obtain laboratory values for medical screening examination and if medically cleared will contact mental health. I have ordered a CPSO and safety plan. I have initiated a [facility] protocol Laboratory values do not reveal any obvious emergent process. Urinalysis positive for leuk esterase, greater than 50 white cells. Will treat with Keflex for potential UTI. Alcohol level is 92. Covid negative Patient removed her IV. Patient with UTI, treated with Keflex, otherwise medically cleared. I have contacted mental health for evaluation. Patient continues to deny any active suicidal thoughts or plan. She is requesting to be discharged home. Mental health evaluation in process, please see their note. I received a call back from [facility], the plan is to reevaluate her when her alcohol level is 0 in order to make this a legally binding mental health evaluation. She is concerned about the suicidal ideations and the plan with scissors, she would ultimately like to see her placed for mental health purposes. She will talk with the patient once again to discuss whether or not this can be done involuntarily. Repeat alcohol level drawn Repeat mental health evaluation completed. Patient to be a voluntary placement. We are currently evaluating the hospital bed status to determine whether the patient will be admitted to the floor or held in the ER Medical Records Medical records reviewed: Yes I reviewed the patient's medical records. Lab Data Lab results reviewed: Yes I reviewed the patient's lab results. Lab results narrative: 11/12/20 11:50 Urine - Reflex from Ua Urine Culture - Pending Laboratory Tests Range/Units 11/12/20 11/12/20 11/12/20 11:29 11:50 11:50 WBC (4.4-10.8) 10^3/uL RBC (3.93-5.22) 10^6/uL Hgb (11.2-15.7) g/dL Hct (36.0-46.0) % MCV (80-95) fL MCH (27.0-33.0) pg MCHC (32.0-36.0) % RDW (11.7-14.6) % Plt Count (130-400) 10^3/uL MPV (8.0-11.0) fL Immature Gran % Neutrophils % Lymphocytes % Monocytes % Eosinophils % Basophils % Nucleated RBC % % Absolute Neutrophils (1.2-6.7) 10^3/uL Absolute Lymphocytes (1.2-3.4) 10^3/uL Absolute Monocytes (0.1-0.8) 10^3/uL Absolute Eosinophils (0.0-0.7) 10^3/uL Absolute Basophils (0.0-0.2) 10^3/uL Sodium (136-145) mmol/L Potassium (3.5-5.1) mmol/L Chloride (98-107) mmol/L Carbon Dioxide (21.0-32.0) mmol/L Anion Gap (3-11) mmol/L BUN (7-18) mg/dL Creatinine (0.55-1.02) mg/dL Estimated GFR/1.73 m2 (mL/min/1.73m2) Glucose (74-106) mg/dL Calcium (8.5-10.1) mg/dL Magnesium (1.8-2.4) mg/dL Total Bilirubin (0.2-1.0) mg/dL AST (15-37) U/L ALT (14-59) U/L Alkaline Phosphatase (46-116) U/L Total Protein (6.4-8.2) g/dL Albumin (3.4-5.0) g/dL Lipase (73-393) U/L TSH (0.36-3.74) uIU/mL Urine Color (Yellow) Yellow Urine Clarity (Clear) Cloudy Urine pH (5-8) 6.0 Ur Specific Strunk (1.005-1.025) >= 1.030 H Urine Protein (Negative) mg/dL 100 H Urine Ketones (Negative) mg/dL Trace H Urine Blood (Negative) Negative Urine Nitrite (Negative) Positive H Urine Bilirubin (Negative) Negative Urine Urobilinogen (Up TO 0.2) EU/dL 1.0 H Ur Leukocyte Esterase (Negative) Moderate H Urine RBC (0-2) HPF Negative Urine WBC (0-5) HPF >50 H Ur Epithelial Cells (Negative) HPF Few Urine Crystals (Negative) HPF Negative Urine Bacteria (Negative) HPF Many Urine Casts (Negative) LPF Negative Urine Mucus (Negative) Moderate Urine Other (Negative) Negative Ur Culture Indicated? Yes Urine Glucose (Negative) mg/dL Negative Salicylates (<2.8) mg/dL Urine Opiates Screen (Negative) Negative Urine Methadone Screen (Negative) Negative Acetaminophen (10-30) ug/mL Ur Barbiturates Screen (Negative) Negative Ur Tricyclics Screen (Negative) Negative Ur Amphetamines Screen (Negative) Negative U Benzodiazepines Scrn (Negative) Positive A Urine Cocaine Screen (Negative) Negative Ur THC Screen (Negative) Negative Ethyl Alcohol (<3) mg/dL COVID-19 Source Nasopharyx SARS-CoV-2 (PCR) (Negative) Negative Range/Units 11/12/20 11/12/20 11/12/20 12:43 12:43 12:43 WBC (4.4-10.8) 10^3/uL 3.01 L RBC (3.93-5.22) 10^6/uL 3.59 L Hgb (11.2-15.7) g/dL 12.0 Hct (36.0-46.0) % 37.1 MCV (80-95) fL 103.3 H MCH (27.0-33.0) pg 33.4 H MCHC (32.0-36.0) % 32.3 RDW (11.7-14.6) % 14.0 Plt Count (130-400) 10^3/uL 234 MPV (8.0-11.0) fL 9.4 Immature Gran % 0.3 Neutrophils % 56.9 Lymphocytes % 30.9 Monocytes % 11.6 Eosinophils % 0.0 Basophils % 0.3 Nucleated RBC % % 0 Absolute Neutrophils (1.2-6.7) 10^3/uL 1.71 Absolute Lymphocytes (1.2-3.4) 10^3/uL 0.93 L Absolute Monocytes (0.1-0.8) 10^3/uL 0.35 Absolute Eosinophils (0.0-0.7) 10^3/uL 0.00 Absolute Basophils (0.0-0.2) 10^3/uL 0.01 Sodium (136-145) mmol/L 144 Potassium (3.5-5.1) mmol/L 3.7 Chloride (98-107) mmol/L 108 H Carbon Dioxide (21.0-32.0) mmol/L 24.6 Anion Gap (3-11) mmol/L 11.4 H BUN (7-18) mg/dL 12 Creatinine (0.55-1.02) mg/dL 0.8 Estimated GFR/1.73 m2 (mL/min/1.73m2) >= 60.00 Glucose (74-106) mg/dL 98 Calcium (8.5-10.1) mg/dL 9.7 Magnesium (1.8-2.4) mg/dL Total Bilirubin (0.2-1.0) mg/dL 0.7 AST (15-37) U/L 39 H ALT (14-59) U/L 37 Alkaline Phosphatase (46-116) U/L 122 H Total Protein (6.4-8.2) g/dL 6.9 Albumin (3.4-5.0) g/dL 3.2 L Lipase (73-393) U/L 44 TSH (0.36-3.74) uIU/mL 0.76 Urine Color (Yellow) Urine Clarity (Clear) Urine pH (5-8) Ur Specific Strunk (1.005-1.025) Urine Protein (Negative) mg/dL Urine Ketones (Negative) mg/dL Urine Blood (Negative) Urine Nitrite (Negative) Urine Bilirubin (Negative) Urine Urobilinogen (Up TO 0.2) EU/dL Ur Leukocyte Esterase (Negative) Urine RBC (0-2) HPF Urine WBC (0-5) HPF Ur Epithelial Cells (Negative) HPF Urine Crystals (Negative) HPF Urine Bacteria (Negative) HPF Urine Casts (Negative) LPF Urine Mucus (Negative) Urine Other (Negative) Ur Culture Indicated? Urine Glucose (Negative) mg/dL Salicylates (<2.8) mg/dL < 2.8 Urine Opiates Screen (Negative) Urine Methadone Screen (Negative) Acetaminophen (10-30) ug/mL < 2 Ur Barbiturates Screen (Negative) Ur Tricyclics Screen (Negative) Ur Amphetamines Screen (Negative) U Benzodiazepines Scrn (Negative) Urine Cocaine Screen (Negative) Ur THC Screen (Negative) Ethyl Alcohol (<3) mg/dL 92.0 COVID-19 Source SARS-CoV-2 (PCR) (Negative) Range/Units 11/12/20 12:43 WBC (4.4-10.8) 10^3/uL RBC (3.93-5.22) 10^6/uL Hgb (11.2-15.7) g/dL Hct (36.0-46.0) % MCV (80-95) fL MCH (27.0-33.0) pg MCHC (32.0-36.0) % RDW (11.7-14.6) % Plt Count (130-400) 10^3/uL MPV (8.0-11.0) fL Immature Gran % Neutrophils % Lymphocytes % Monocytes % Eosinophils % Basophils % Nucleated RBC % % Absolute Neutrophils (1.2-6.7) 10^3/uL Absolute Lymphocytes (1.2-3.4) 10^3/uL Absolute Monocytes (0.1-0.8) 10^3/uL Absolute Eosinophils (0.0-0.7) 10^3/uL Absolute Basophils (0.0-0.2) 10^3/uL Sodium (136-145) mmol/L Potassium (3.5-5.1) mmol/L Chloride (98-107) mmol/L Carbon Dioxide (21.0-32.0) mmol/L Anion Gap (3-11) mmol/L BUN (7-18) mg/dL Creatinine (0.55-1.02) mg/dL Estimated GFR/1.73 m2 (mL/min/1.73m2) Glucose (74-106) mg/dL Calcium (8.5-10.1) mg/dL Magnesium (1.8-2.4) mg/dL 1.9 Total Bilirubin (0.2-1.0) mg/dL AST (15-37) U/L ALT (14-59) U/L Alkaline Phosphatase (46-116) U/L Total Protein (6.4-8.2) g/dL Albumin (3.4-5.0) g/dL Lipase (73-393) U/L TSH (0.36-3.74) uIU/mL Urine Color (Yellow) Urine Clarity (Clear) Urine pH (5-8) Ur Specific Strunk (1.005-1.025) Urine Protein (Negative) mg/dL Urine Ketones (Negative) mg/dL Urine Blood (Negative) Urine Nitrite (Negative) Urine Bilirubin (Negative) Urine Urobilinogen (Up TO 0.2) EU/dL Ur Leukocyte Esterase (Negative) Urine RBC (0-2) HPF Urine WBC (0-5) HPF Ur Epithelial Cells (Negative) HPF Urine Crystals (Negative) HPF Urine Bacteria (Negative) HPF Urine Casts (Negative) LPF Urine Mucus (Negative) Urine Other (Negative) Ur Culture Indicated? Urine Glucose (Negative) mg/dL Salicylates (<2.8) mg/dL Urine Opiates Screen (Negative) Urine Methadone Screen (Negative) Acetaminophen (10-30) ug/mL Ur Barbiturates Screen (Negative) Ur Tricyclics Screen (Negative) Ur Amphetamines Screen (Negative) U Benzodiazepines Scrn (Negative) Urine Cocaine Screen (Negative) Ur THC Screen (Negative) Ethyl Alcohol (<3) mg/dL COVID-19 Source SARS-CoV-2 (PCR) (Negative) <CELINA Snow - Last Filed: 11/12/20 17:39> evaluated pt at 1738 after taking sign out from Gwyn Sandoval PA-C pt will be admitted to transitional bed in the hospital remains voluntary at this time no evidence of ETOH withdrawal <Moose Lafleur MD - Last Filed: 11/12/20 17:37> Patient seen, evaluated [id number], discussed with Lori and Ms. Yarbrough. I agree with their assessment and plan. HPI <CELINA Kidd - Last Filed: 11/12/20 16:03> General Mode of arrival: EMS . Date/Time Provider Initiated Documentation: 11/12/20 11:20 . Limitations to Documentation: altered mental status . Information obtained by: patient and EMS . HPI Narrative: This is a 75-year-old female, past medical history that includes alcohol abuse, multiple falls, AMBER, anemia, chronic back pain, depression, GERD, GI bleed, hypertension, pancreatitis, presenting to the ER today via EMS. Patient is not willing to actively partake much in her HPI. Apparently she had contacted a friend on the phone, reported that she was feeling suicidal with a plan to cut herself with scissors. EMS was called, she initially was not willing to come to the ER with EMS; however, additional resources and local police were on scene and eventually the patient was agreeable to coming to the ER. Patient admits to multiple recent falls however she denies any falls after she was seen here on Tuesday night. She reports chronic back pain but no acute pain. She admits to alcohol but will not tell me how much she drank today. She initially admitted that she was suicidal without a plan; however, later states I am not suicidal if I can just go home. She denies headache, visual change, neck pain, chest pain, shortness of breath, abdominal pain, nausea, vomiting, numbness, tingling, weakness. She denies any homicidal ideations. She denies taking any intentional overdose today. Related Data Home Medications Medication Instructions Recorded Confirmed Refresh Plus 1 drp OU Q4H WHILE AWAKE #30 each 06/20/19 11/08/20 magnesium oxide 400 mg PO BID #180 cap 07/17/19 11/08/20 food supplemt, lactose-reduced 414 ml PO DAILY #72719 ml 08/24/19 11/08/20 dicyclomine 10 mg capsule 10 mg PO QID PRN #40 cap 11/06/19 11/08/20 sucralfate 1 gram tablet 1 g PO AC & HS #120 tab 11/06/19 11/08/20 ipratropium 0.5 mg-albuterol 3 mg 3 ml IH QID PRN #90 ml 01/04/20 11/08/20 (2.5 mg base)/3 mL nebulization soln fluticasone propionate 50 1 spray NS daily prn #9.9 ml 03/25/20 11/08/20 mcg/actuation nasal spray,suspension Bio-K plus 1 cap PO DAILY #60 cap 05/12/20 11/08/20 ascorbic acid (vitamin C) [Vitamin 500 mg PO BID #30 tab 05/12/20 11/08/20 C] celecoxib 100 mg capsule 100 mg PO BID #60 cap 06/13/20 11/08/20 lifitegrast 5 % eye drops in a 1 drp OPHTHALMIC (EYE) BID 08/05/20 11/08/20 dropperette sennosides [Senokot] 8.6 mg PO PRN PRN 08/08/20 11/08/20 chlordiazepoxide HCl 25 mg PO Q12H #7 cap 08/09/20 11/08/20 cholestyramine (with sugar) 4 gram 1 pwd PO BID #378 g 08/27/20 11/08/20 oral powder amlodipine 10 mg tablet 10 mg PO DAILY #90 tab 09/05/20 11/12/20 folic acid 1 mg tablet 1 mg PO DAILY #90 tab 09/05/20 11/08/20 gabapentin 300 mg capsule 300 mg PO BID #90 cap 09/05/20 11/12/20 hydrochlorothiazide 12.5 mg tablet 12.5 mg PO DAILY #90 tab 09/05/20 11/12/20 metoprolol tartrate 50 mg tablet 50 mg PO BID #180 tab 09/05/20 11/12/20 multivitamin 1 tab PO DAILY #90 tab 09/05/20 11/12/20 pantoprazole 40 mg tablet,delayed 40 mg PO DAILY #90 tab 09/05/20 11/12/20 release potassium chloride 10 mEq 10 meq PO DAILY #90 tab 09/05/20 11/12/20 tablet,extended release(part/cryst) thiamine HCl (vitamin B1) 100 mg 100 mg PO DAILY #90 tab 09/05/20 11/12/20 tablet venlafaxine 150 mg 150 mg PO DAILY #30 cap 09/05/20 11/12/20 capsule,extended release 24 hr venlafaxine 37.5 mg 37.5 mg PO DAILY #30 cap 09/05/20 11/12/20 capsule,extended release 24 hr doxepin 3 mg tablet 3 mg PO BID PRN #30 tab 10/15/20 11/08/20 hydroxyzine HCl 25 mg tablet 25 mg PO TID PRN #30 tab 10/17/20 11/12/20 Eucerin 0 g TOPICAL TID #1 unit 10/25/20 11/08/20 Restasis 0.4 ml OU BID #10 ea 10/25/20 11/08/20 diphenhydramine HCl 25 mg PO Q4H PRN PRN #20 cap 10/25/20 11/08/20 hydrocortisone 0 g TOPICAL TID #1 applic 10/25/20 11/08/20 amlodipine 5 mg PO DAILY 11/12/20 11/12/20 naltrexone 50 mg PO DAILY 11/12/20 11/12/20 Previous Rx's Medication Instructions Recorded Refresh Plus 1 drp OU Q4H WHILE AWAKE #30 each 06/20/19 magnesium oxide 400 mg PO BID #180 cap 07/17/19 food supplemt, lactose-reduced 414 ml PO DAILY #96985 ml 08/24/19 dicyclomine 10 mg capsule 10 mg PO QID PRN #40 cap 11/06/19 sucralfate 1 gram tablet 1 g PO AC & HS #120 tab 11/06/19 ipratropium 0.5 mg-albuterol 3 mg 3 ml IH QID PRN #90 ml 01/04/20 (2.5 mg base)/3 mL nebulization soln fluticasone propionate 50 1 spray NS daily prn #9.9 ml 03/25/20 mcg/actuation nasal spray,suspension Bio-K plus 1 cap PO DAILY #60 cap 05/12/20 ascorbic acid (vitamin C) [Vitamin 500 mg PO BID #30 tab 05/12/20 C] celecoxib 100 mg capsule 100 mg PO BID #60 cap 06/13/20 chlordiazepoxide HCl 25 mg PO Q12H #7 cap 08/09/20 cholestyramine (with sugar) 4 gram 1 pwd PO BID #378 g 08/27/20 oral powder amlodipine 10 mg tablet 10 mg PO DAILY #90 tab 09/05/20 folic acid 1 mg tablet 1 mg PO DAILY #90 tab 09/05/20 gabapentin 300 mg capsule 300 mg PO BID #90 cap 09/05/20 hydrochlorothiazide 12.5 mg tablet 12.5 mg PO DAILY #90 tab 09/05/20 metoprolol tartrate 50 mg tablet 50 mg PO BID #180 tab 09/05/20 multivitamin 1 tab PO DAILY #90 tab 09/05/20 pantoprazole 40 mg tablet,delayed 40 mg PO DAILY #90 tab 09/05/20 release potassium chloride 10 mEq 10 meq PO DAILY #90 tab 09/05/20 tablet,extended release(part/cryst) thiamine HCl (vitamin B1) 100 mg 100 mg PO DAILY #90 tab 09/05/20 tablet venlafaxine 150 mg 150 mg PO DAILY #30 cap 09/05/20 capsule,extended release 24 hr venlafaxine 37.5 mg 37.5 mg PO DAILY #30 cap 09/05/20 capsule,extended release 24 hr doxepin 3 mg tablet 3 mg PO BID PRN #30 tab 10/15/20 hydroxyzine HCl 25 mg tablet 25 mg PO TID PRN #30 tab 10/17/20 Eucerin 0 g TOPICAL TID #1 unit 10/25/20 Restasis 0.4 ml OU BID #10 ea 10/25/20 diphenhydramine HCl 25 mg PO Q4H PRN PRN #20 cap 10/25/20 hydrocortisone 0 g TOPICAL TID #1 applic 10/25/20 Allergies Allergy/AdvReac Type Severity Reaction Status Date / Time Penicillins Allergy Mild Rash Verified 11/08/20 09:02 ramipril Allergy Unknown ITCHING Verified 11/08/20 09:02 meperidine [From Demerol] AdvReac Severe Nausea Verified 11/08/20 09:02 bupropion AdvReac Mild GI upset Verified 11/08/20 09:02 AMBER Inhibitors AdvReac Unknown COUGH Verified 11/08/20 09:02 alendronate sodium AdvReac Unknown GI Distress Verified 11/08/20 09:02 clarithromycin AdvReac Unknown intolerant Verified 11/08/20 09:02 paroxetine AdvReac Unknown Diarrhea Verified 11/08/20 09:02 General Stated Complaint: PsychEval JORDAN: 2 Review of Systems <CELINA Kidd - Last Filed: 11/12/20 16:03> Constitutional Constitutional: Denies fatigue, Denies fever(s) and Denies headache(s) Eyes Eyes: Denies change in vision ENT Ears, Nose, Mouth, and Throat: Denies headache(s) and Denies neck pain Cardiovascular Cardiovascular: Denies chest pain and Denies dyspnea Respiratory Respiratory: Denies dyspnea Gastrointestinal Gastrointestinal: Denies abdominal pain, Denies nausea and Denies vomiting Genitourinary Genitourinary: Denies dysuria Musculoskeletal Musculoskeletal: Reports back pain and Denies neck pain Integumentary/Breasts Skin/Breast: Denies rash Neurologic Neurologic: Denies headache(s) Psychiatric Psychiatric: Reports depression, Denies homicidal ideation and Reports suicidal ideation Endocrine Endocrine: Denies fatigue PFSH <CELINA Kidd - Last Filed: 11/12/20 16:03> Medical History Adjustment disorder with depressed mood AMBER (acute kidney injury) Alcohol abuse Alcoholic gastritis without bleeding Alcoholic ketosis Allergic rhinitis Anemia (12/20/16) Back pain, chronic Calcific tendinitis of left shoulder CAP (community acquired pneumonia) Cataract (11/07/15) Cervical radicular pain neck pain and [facility]D [facility] 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) pls refrain from alcohol Chronic alcoholism she will not stop drinking unless she checks with me, so that we can help her avert withdrawal I do not think she is capable on her own--she would need placement to achieve required goal of 3 months of sobriety Chronic diarrhea Closed displaced fracture of proximal phalanx of right index finger with routine healing (06/03/17) Closed right humeral fracture Contusion of left little finger Corneal ulcer, right (~08/23/18) 08/23/18; [facility] Dehydration Depression Diarrhea Discharge planning issues DVT prophylaxis Dystrophic nail Elev transaminase/LDH due to alcohol Epigastric abdominal pain Fall as cause of accidental injury at home as place of occurrence Genital herpes simplex recurrent gential; suppressive Valtrex GERD (gastroesophageal reflux disease) GI bleed (12/20/16) Head contusion Headache History of alcohol abuse Humerus fracture (09/12/19) Right Hyperlipidemia Hypertension Incidental lung nodule, greater than or equal to 8mm 1cm, spiculated, stable for many years, recommend f/u in 6 mo Macrocytosis (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 Multiple rib fractures 03/11/19 [facility] Nausea and vomiting in adult Non-cardiac chest pain (09/21/16) [facility] 09/21/16 NEGATIVE MP Osteoarthritis Osteopenia Palliative care patient (03/21/17) Pancreatitis, alcoholic, acute Peripheral edema Pleural effusion on left 03/11/19 [facility] Presacral mass (~09/15/18) 09/15/18 [facility] Right rib fracture Sacral mass Sciatica right, epidural injuections [facility] Tendinitis of left rotator cuff Tubular adenoma of colon (01/28/17) Urinary incontinence 01/24/13 urethral suspension and sling at [facility] (bladder suspension 1991) UTI (urinary tract infection) Vision loss of right eye 08/17/18;[facility] Wernicke encephalopathy Surgical History Bladder Surgery suspension Colonoscopy - MAC (01/28/17) EGD - MAC (12/20/16) History of bilateral ligation of fallopian tubes History of Surgical Procedure a. Bladder repair. Ligation of fallopian tube Repair bladder injury, simple Family History Mother No problems noted. Father , DROWNED at age 50. No problems noted. Sister Personal history of malignant neoplasm MELANOMA Sister No problems noted. Grandfather Personal history of malignant neoplasm STOMACH Grandfather Personal history of malignant neoplasm PROSTATE Grandmother Heart disease VA Acute ill-defined cerebrovascular disease Grandmother Personal history of malignant neoplasm UTERINE Aunt , VA Heart disease VA Aunt , VA Heart disease Brother No problems noted. Social History Smoking/Tobacco Use Status: Former Tobacco Use Quit Date: 08/05/20 Smoking risk assessment performed?: Yes Alcohol Intake: current Alcohol Intake frequency: 3 or more drinks per day Alcohol type: hard liquor Drug use: Never Substance use type: does not use Details: last ETOH yesterday afternoon Current gender identity: female Do you feel safe at home: Yes Do you feel safe in your relationship?: Yes Additional Social history: Unable to obtain any history r/t patients alcohol consumption Exam <CELINA Kidd - Last Filed: 11/12/20 16:03> Const General: no acute distress and disheveled Orientation: alert, awake, oriented to person, oriented to place and confused (Unsure of exact date) HENMT Head: normal to inspection, normocephalic and atraumatic Face and sinus: normal facial exam Mouth: moist mucous membranes abnormal (Slightly dry) Eyes General: appearance normal, both eyes and all related structures Alignment and Position: alignment normal Periorbital: periorbital findings normal Eyelids: eyelids normal Conjunctivae: conjunctivae normal Sclera: sclerae normal Cornea: corneas normal Pupils: PERRL EOM: EOM intact bilaterally Direct ophthalmoscopy: normal light reflex Neck Neck: normal visual inspection, full ROM, no meningeal signs, trachea midline, supple and nontender Resp Effort & Inspection: normal respiratory effort and able to speak in complete sentences Auscultation: clear to auscultation bilaterally Cardio Rate: regular rate Rhythm: regular rhythm GI Palpation: soft, not firm, no guarding and nontender Auscultation: normal bowel sounds Back/Spine/Pelvis Back: no CVA tenderness and back tenderness (Diffuse mild lumbar discomfort) Skin General skin exam: no rashes or lesions noted Neuro General: patient alert, patient awake, oriented Patient Orientation: Person, m oves all extremities and no focal motor deficits Cranial Nerves: CN's II-XI intact bilaterally Cognition: normal cognition Speech: speech normal Motor: muscle tone normal throughout Sensory Exam: no sensory deficits noted Extrem General: normal to inspection, full ROM and capillary refill normal Psych Appearance: disheveled Mental Status: mental status grossly normal Speech and Movement: agitated Mood: dysthymic mood Affect: sad Attitude: refuses to answer Thought Process: normal Thought Content: suicidality Insight: limited Judgment: limited Course <CELINA Kidd - Last Filed: 11/12/20 16:03> Vital Signs Vital signs: Vital Signs Temperature 36.6 C 11/12/20 11:04 Pulse 100 H 11/12/20 11:04 Respiratory Rate 20 11/12/20 11:04 Pulse Oximetry 93 11/12/20 11:04 Temperature 36.6 C 11/12/20 11:04 Temperature Source Oral 11/12/20 11:04 Pulse 100 H 11/12/20 11:04 Respiratory Rate 20 11/12/20 11:04 Pulse Oximetry 93 11/12/20 11:04 Oxygen Delivery Method Room Air 11/12/20 11:04 Oxygen Flow Rate 0 11/12/20 11:04 Sign Out <CELINA Kidd - Last Filed: 11/12/20 16:03> Sign Out Data: Sign Out Comment: Chronic alcohol abuse, SI with vague plan. Medically cleared, UTI, given dose of Keflex. Mental health evaluated and patient is a voluntary placement Last updated by Gwyn Sandoval PA at 11/12/20 16:00
[2020-11-12] MEDS: Normal Saline 1,000 ML 150 ML IV (11:37)
[2020-11-12 12:09] LABS: Bilirubin Negative (Negative); Blood Negative (Negative); Clarity Cloudy (Clear); Glucose Negative (Negative); Ketones Trace mg/dL (Negative); Leukocyte Esterase Moderate (Negative); Nitrite Positive (Negative); Specific Gravity >= 1.030 (1.005-1.025)
[2020-11-12 12:19] LABS: Bacteria Many HPF (Negative); C & S Indicated? Yes; Casts Negative LPF (Negative); Crystals Negative HPF (Negative); Epithelial Cells Few HPF (Negative); Mucus Moderate (Negative); Other Cells Negative (Negative); RBC Negative HPF (0-2); WBC >50 HPF (0-5)
[2020-11-12 12:33] LABS: *AMPHETAMINES SCREEN URINE Negative (Negative); *BARBITURATES SCREEN URINE Negative (Negative); *BENZODIAZEPINES SCREEN URINE POSITIVE (Negative); Cannabinoids THC Negative (Negative); Cocaine Screen,Urine Negative (Negative); METHADONE URINE SCREEN Negative (Negative); OPIATES URINE SCREEN Negative (Negative)
[2020-11-12 12:35] LABS: Tricyclic Antidepressants Negative (Negative)
[2020-11-12 12:43] LABS: COVID-19 PCR Negative (Negative)
[2020-11-12 12:51] LABS: Abs Immature Grans 0.01 10^3/uL (0.0-0.06); Absolute Basophil Count 0.01 10^3/uL (0.0-0.2); Absolute Lymphocyte Count 0.93 10^3/uL (1.2-3.4); Absolute Monocyte Count 0.35 10^3/uL (0.1-0.8); Absolute Neutrophil Count 1.71 10^3/uL (1.2-6.7); Basophils % 0.3; HCT 37.1 % (36.0-46.0); Immature Grans % 0.3; Lymphocytes % 30.9; MCH 33.4 pg (27.0-33.0); MCHC 32.3 % (32.0-36.0); MCV 103.3 fL (80-95); MPV 9.4 fL (8.0-11.0); Monocytes % 11.6; Neutrophils % 56.9; Nucleated RBC 0 %; Platelet Count 234 10^3/uL (130-400); RBC 3.59 10^6/uL (3.93-5.22); WBC 3.01 10^3/uL (4.4-10.8)
[2020-11-12 13:12] LABS: Magnesium 1.9 mg/dL (1.8-2.4)
[2020-11-12 13:24] LABS: ALT 37 U/L (14-59); AST 39 U/L (15-37); Albumin 3.2 g/dL (3.4-5.0); Alkaline Phosphatase 122 U/L (46-116); Anion Gap 11.4 mmol/L (3-11); BUN 12 mg/dL (7-18); Bilirubin, Total 0.7 mg/dL (0.2-1.0); CO2 24.6 mmol/L (21.0-32.0); CREATININE 0.8 mg/dL (0.55-1.02); Calcium 9.7 mg/dL (8.5-10.1); Chloride 108 mmol/L (98-107); Glucose 98 mg/dL (74-106); Lipase 44 U/L (73-393); Potassium 3.7 mmol/L (3.5-5.1); Sodium 144 mmol/L (136-145); TSH 0.76 uIU/mL (0.36-3.74); Total Protein 6.9 g/dL (6.4-8.2)
[2020-11-12 13:28] LABS: Salicylate < 2.8 mg/dL (<2.8)
[2020-11-12 13:29] LABS: Acetaminophen < 2 ug/mL (10-30)
--- NOTE | 2020-11-12 13:29 | PDOC.CMSAFED ---
- If Service Date Differs Date of service: 11/12/20 Time of Service: 13:29 Care Management Safety Plan Status: Voluntary Chief Complaint: Leticia is a 75 year old female who presents in the ED via EMS after making suicidal statements on the telephone when speaking with a friend. [facility] was contacted and requested a wellcare check. Leticia was subsequently brought to the ED for an evaluation. She is pleasant but appears confused when CM comes to meet with her. She was evaluated by Bernabe [facility] crisis screener, and was found to meet criteria for a voluntary psych hospitalization. Leticia tells CM that she is getting a vaccine on December 02, 2020, and fears that if she goes to a psych hospital she will miss the appointment for the vaccine. Leticia states she doesn't know if the vaccine is for the flu or Covid or something else, but is afraid she will have to remain in her apartment for the next year if she misses the appointment. reassures her that December 02 is almost three weeks away and that she likely will be back home by then and able to make the appointment. VOLUNTARY FOR INPATIENT PSYCHIATRIC STABILIZATION. Patient is appropriate in all interactions since arriving at [facility]; Pt has demonstrated appropriate coping and communication skills, has articulated his or her needs and concerns and is fully engaged during staff interactions. Safety plan has been established with patient, and care team, to adhere to patient goals, identify restrictions based on behavioral status, address nutrition, and determine allowed personal belongings, tools for hygiene and personal care. Determine level of activity including ambulation, level of supervision, visitors, and determine privileges based on behaviors and level of engagement by pt. SAFETY PLAN: 1. Will remain on suicide precautions and in paper clothes. 2. Will remain in room under direct supervision of one-on-one staff at all times provided by CPSO, OUTREACH SPECIALIST, AIR BRUSH DECORATOR hydraulic hammer operator. 3. May have paper cups, plates, finger foods as well as a cardboard spoon with which to eat meals. 4. Follow [facility] Management of the Admitted Behavioral Health Patient policy. 5. Comfort bath system only while in the ED. If moved to Med/Surg, will be permitted to shower with supervision and at RN discretion. 6. No personal belongings 7. Visitors-No visitors at this time per Covid Policy. 8. Activities: Television if available, coloring book, crayons, and other activities at RN discretion. 9. Bathroom privileges: Must be accompanied by staff while in the ED. If moved to Med/Surg, may use bathroom in room without supervision. 10. Phone: Phone use at RN discretion. 11. Due to VOLUNTARY status, if patient wishes to leave [facility], staff will contact [facility] Crisis Screener ([phone]) and On-Call Gun Stock Checker ([phone]) as soon as possible. In the event of elopement, notify [facility] ([phone]). Patient is currently voluntarily at [facility] and seeking inpatient admission when a bed becomes available. [facility] Frontline Product Picker will continue seeking placement. Please contact the Medical Support Assistant Gun Stock Checker ([phone]) and [facility] Product Picker ([phone]) for any needed changes in the Safety Plan. Safety plan has been provided to interdepartmental care team.
[2020-11-12] MEDS: Cephalexin 500 MG CAP PO (15:15)
[2020-11-12 16:21] LABS: ETHANOL BLOOD 19.4 mg/dL (<3)
--- NOTE | 2020-11-12 16:50 | PDOC.MHCN ---
Date of service: 11/12/20 Time of Service: 14:00 Mental Health Crisis Note Presenting Issue How did you arrive at the ED and why did you come: Client arrived at the ED via ambulance due to suicidal ideation with intent and plan. Precipitating Factors Client denied SI / HI at this time. However, EMS states that upon arrival to client's residence, she had a pair of scissors in her hands. Disposition BEHAVIOR: Client was uncooperative and very tangential in thought process and content. Client often evaded question regarding suicidality as well as ETOH dependence during this assessment. EYE CONTACT: Client was unable to make any eye contact with this appeals writer MOOD: Client presented with severely depressed and hopeless mood AFFECT: Client presented with flat affect. APPETITE: Client reported she barely eats but consumes a lot of alcohol daily. SLEEP(trouble falling/staying asleep: Client endorsed sleep disturbance. Client reported she drinks till she falls asleep. Plan Client has agreed to be on voluntary status for in-patient psychiatric treatment. Client will need to be reassessed if she decided to leave before placement. A referral has been sent to [facility] and it is pending review as well as bed availability. Signature Clinician's Name/Title: Joyce Prather / Emergency Services Clinician
[2020-11-12 17:44] VITALS: BP 139/82; PULSE 117; RESP 18; TEMP 36.5; O2SAT 94
[2020-11-12] MEDS: Acetaminophen 500 MG TAB 1000 MG PO (19:14)
[2020-11-12 19:30] VITALS: BP 175/84; PULSE 104; RESP 18; TEMP 36.4; O2SAT 98
[2020-11-12] MEDS: Magnesium Oxide 400 MG TAB PO (20:33)
[2020-11-12] MEDS: Thiamine 100 MG TAB PO ×2 (20:33→20:53)
[2020-11-12] MEDS: Metoprolol 50 MG TAB PO (20:33)
[2020-11-12] MEDS: Fosfomycin Tromethamine 3 GM PACKET PO (20:36)
[2020-11-12] MEDS: Folic Acid 1 MG TAB PO (20:52)
[2020-11-12] MEDS: Multivitamin TAB 1 TAB (20:56)
[2020-11-12] MEDS: Sucralfate 1 GM TAB PO (21:55)
--- NOTE | 2020-11-12 23:07 | HPE_ITS ---
Date of service: 11/12/20 Time of Service: 23:08 Assessment and Plan Assessment and plan (1) Suicidal ideation: Status: Acute Assessment and plan: Patient allegedly expressed thoughts of suicide although she denies this at the present time. However patient was intoxicated at the time she made the statements of suicidal intention. Patient has chronic depression which is worsened by her alcoholism. Mental health is made referral to inpatient psychiatric hospitals for which we are awaiting her acceptance. (2) Acute UTI: Status: Acute Assessment and plan: Currently asymptomatic although her urinalysis certainly was suspicious for UTI. She was given Keflex in the ER. I have given her a one-time dose of fosfomycin. We will await results of urine culture. (3) Alcohol intoxication: Status: Acute Assessment and plan: Patient presented emergency department intoxicated but no longer is intoxicated as evidenced by her most recent blood alcohol level. She has a history of chronic alcoholism and although there have been multiple episodes which she has been given a diagnosis of alcohol withdrawal she has never really gone through severe withdrawal and most of her symptoms that are ascribed to her withdrawal are actually symptoms related to her chronic conditions including her alcoholic gastritis and her hypertension and her pruritus. Her symptoms become exacerbated when she quits taking her beta- blockers and her antipruritic medicines and her GI medications. She should not be prescribed benzodiazepines either as an inpatient nor as an outpatient because of her history of overuse of benzodiazepines leading to severe sedation. Furthermore she cannot be trusted to take outpatient benzodiazepines. If she should show signs of acute alcohol withdrawal she should be treated with a loading dose of phenobarbital and no as needed dosing of benzodiazepines. Qualifiers: Complication of substance-induced condition: uncomplicated Qualified Code(s): F10.920 - Alcohol use, unspecified with intoxication, uncomplicated (4) Pruritus: Status: Acute Assessment and plan: Continue as needed use of Atarax along with moisturizing creams such as Lac-Hydrin or Kodi cream (5) Shoulder pain, right: Status: Acute Assessment and plan: She probably has a right rotator cuff injury from her frequent falls. Recent x-ray from a couple days ago showed no evidence of acute fractures. I will prescribe Voltaren gel for her shoulder and request physical therapy. If pain persist consider Ortho consult and possible steroid injection. Qualifiers: Chronicity: chronic Qualified Code(s): M25.511 - Pain in right shoulder; G89.29 - Other chronic pain (6) Depression: Status: Chronic Assessment and plan: Continue current dose of venlafaxine. Referral to inpatient psychiatric care. Consideration should be given for ECT or IV alicia mine. History of Present Illness History of Present Illness Chief Complaint: Alcohol abuse, suicidal ideation Narrative: 75-year-old female with history of chronic depression, alcoholism, hypertension, hyperlipidemia, previous suicidal ideation, generalized pruritus, frequent falls resulting in fractures presents to the emergency department via EMS after admitting to alcohol use overnight reportedly telling EMS that she was suicidal. Allegedly she told EMS that she wanted to hurt her self was plan to cut herself with scissors. Upon arrival to emergency department patient was uncooperative but denying suicidal thoughts or plan. Screening medical exam and labs were done by emergency room personnel and request was made for mental health evaluation. However because the patient was intoxicated mental health indicated that they would evaluate her once she is no longer intoxicated. Blood alcohol was 92 in her urine for drugs of abuse was negative with the exception of benzodiazepines. Of note she was recently discharge for reported alcohol withdrawal and was prescribed Librium. Her salicylate level was less than 2.8 and her acetaminophen level was less than 2. Repeat blood alcohol level was obtained this afternoon and found her to no longer be intoxicated with a level of 19.4. Subsequently was evaluated by mental health services deemed appropriate for voluntary inpatient psychiatric hospitalization. Patient now tells me that she was joking around and did not intend to harm her self. However the patient remains uncooperative with my interview with her eyes shut and states the whole reason she came to the emergency department is because she was having headache and shoulder ache. Of note patient just had recent x-rays of her right humerus on November 08, 2020 showed severe degenerative arthritic changes including glenohumeral joint with possible old humeral head fracture but no acute fracture. She had CT scan of her head and cervical spine as well as thoracic and lumbar spine on November 10, 2020 as well as her chest and abdomen pelvis. No evidence of acute injury was seen in the chest abdomen or pelvis. CT scan of the cervical spine showed no acute cervical spine injury and there is no acute intracranial injury. Thoracic and lumbar spine reconstruction showed no evidence of fracture. Review of Systems Constitutional Constitutional: Reports as per HPI, Reports frequent falls and Reports headache(s) ENT Ears, Nose, Mouth, and Throat: Reports headache(s) Musculoskeletal Musculoskeletal: Reports myalgias and Reports arthralgias Neurologic Neurologic: Reports frequent falls and Reports headache(s) Psychiatric Psychiatric: Reports as per HPI [facility] Medical History Adjustment disorder with depressed mood AMBER (acute kidney injury) Alcohol abuse Alcoholic gastritis without bleeding Alcoholic ketosis Allergic rhinitis Anemia (12/20/16) Back pain, chronic Calcific tendinitis of left shoulder CAP (community acquired pneumonia) Cataract (11/07/15) Cervical radicular pain neck pain and [facility]D [facility] 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) pls refrain from alcohol Chronic alcoholism she will not stop drinking unless she checks with me, so that we can help her avert withdrawal I do not think she is capable on her own--she would need placement to achieve required goal of 3 months of sobriety Chronic diarrhea Closed displaced fracture of proximal phalanx of right index finger with routine healing (06/03/17) Closed right humeral fracture Contusion of left little finger Corneal ulcer, right (~08/23/18) 08/23/18; [facility]- Dehydration Depression Diarrhea Discharge planning issues DVT prophylaxis Dystrophic nail Elev transaminase/LDH due to alcohol Epigastric abdominal pain Fall as cause of accidental injury at home as place of occurrence Genital herpes simplex recurrent gential; suppressive Valtrex GERD (gastroesophageal reflux disease) GI bleed (12/20/16) Head contusion Headache History of alcohol abuse Humerus fracture (09/12/19) Right Hyperlipidemia Hypertension Incidental lung nodule, greater than or equal to 8mm 1cm, spiculated, stable for many years, recommend f/u in 6 mo Macrocytosis (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 Multiple rib fractures 03/11/19 [facility] Nausea and vomiting in adult Non-cardiac chest pain (09/21/16) [facility] 09/21/16 NEGATIVE MP Osteoarthritis Osteopenia Palliative care patient (03/21/17) Pancreatitis, alcoholic, acute Peripheral edema Pleural effusion on left 03/11/19 [facility] Presacral mass (~09/15/18) 09/15/18 [facility] Right rib fracture Sacral mass Sciatica right, epidural injuections [facility] Tendinitis of left rotator cuff Tubular adenoma of colon (01/28/17) Urinary incontinence 01/24/13 urethral suspension and sling at [facility] (bladder suspension 1991) UTI (urinary tract infection) 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 Bladder repair. Ligation of fallopian tube Repair bladder injury, simple Family History Mother No problems noted. Father , DROWNED at age 50. No problems noted. Sister Personal history of malignant neoplasm MELANOMA Sister No problems noted. Grandfather Personal history of malignant neoplasm STOMACH Grandfather Personal history of malignant neoplasm PROSTATE Grandmother Heart disease [place] Acute ill-defined cerebrovascular disease Grandmother Personal history of malignant neoplasm UTERINE Aunt , [place] Heart disease TX Aunt , [place] Heart disease Brother No problems noted. Social History Smoking/Tobacco Use Status: Former Tobacco Use Quit Date: 08/05/20 Smoking risk assessment performed?: Yes Alcohol Intake: current Alcohol Intake frequency: 3 or more drinks per day Alcohol type: hard liquor Drug use: Never Substance use type: does not use Details: last ETOH yesterday afternoon Current gender identity: female Do you feel safe at home: Yes Do you feel safe in your relationship?: Yes Meds Home Medications and Allergies Allergies Allergy/AdvReac Type Severity Reaction Status Date / Time Penicillins Allergy Mild Rash Verified 11/08/20 09:02 ramipril Allergy Unknown ITCHING Verified 11/08/20 09:02 meperidine [From Demerol] AdvReac Severe Nausea Verified 11/08/20 09:02 bupropion AdvReac Mild GI upset Verified 11/08/20 09:02 AMBER Inhibitors AdvReac Unknown COUGH Verified 11/08/20 09:02 alendronate sodium AdvReac Unknown GI Distress Verified 11/08/20 09:02 clarithromycin AdvReac Unknown intolerant Verified 11/08/20 09:02 paroxetine AdvReac Unknown Diarrhea Verified 11/08/20 09:02 Home Medications Medication Instructions Recorded Confirmed Type Refresh Plus 1 drp OU Q4H WHILE AWAKE #30 each 06/20/19 11/08/20 Rx magnesium oxide 400 mg PO BID #180 cap 07/17/19 11/08/20 Rx food supplemt, lactose-reduced 414 ml PO DAILY #38146 ml 08/24/19 11/08/20 Rx dicyclomine 10 mg capsule 10 mg PO QID PRN #40 cap 11/06/19 11/08/20 Rx sucralfate 1 gram tablet 1 g PO AC & HS #120 tab 11/06/19 11/08/20 Rx ipratropium 0.5 mg-albuterol 3 mg 3 ml IH QID PRN #90 ml 01/04/20 11/08/20 Rx (2.5 mg base)/3 mL nebulization soln fluticasone propionate 50 1 spray NS daily prn #9.9 ml 03/25/20 11/08/20 Rx mcg/actuation nasal spray,suspension Bio-K plus 1 cap PO DAILY #60 cap 05/12/20 11/08/20 Rx ascorbic acid (vitamin C) [Vitamin 500 mg PO BID #30 tab 05/12/20 11/08/20 Rx C] celecoxib 100 mg capsule 100 mg PO BID #60 cap 06/13/20 11/08/20 Rx lifitegrast 5 % eye drops in a 1 drp OPHTHALMIC (EYE) BID 08/05/20 11/08/20 History dropperette sennosides [Senokot] 8.6 mg PO PRN PRN 08/08/20 11/08/20 History chlordiazepoxide HCl 25 mg PO Q12H #7 cap 08/09/20 11/08/20 Rx cholestyramine (with sugar) 4 gram 1 pwd PO BID #378 g 08/27/20 11/08/20 Rx oral powder amlodipine 10 mg tablet 10 mg PO DAILY #90 tab 09/05/20 11/12/20 Rx folic acid 1 mg tablet 1 mg PO DAILY #90 tab 09/05/20 11/08/20 Rx gabapentin 300 mg capsule 300 mg PO BID #90 cap 09/05/20 11/12/20 Rx hydrochlorothiazide 12.5 mg tablet 12.5 mg PO DAILY #90 tab 09/05/20 11/12/20 Rx metoprolol tartrate 50 mg tablet 50 mg PO BID #180 tab 09/05/20 11/12/20 Rx multivitamin 1 tab PO DAILY #90 tab 09/05/20 11/12/20 Rx pantoprazole 40 mg tablet,delayed 40 mg PO DAILY #90 tab 09/05/20 11/12/20 Rx release potassium chloride 10 mEq 10 meq PO DAILY #90 tab 09/05/20 11/12/20 Rx tablet,extended release(part/cryst) thiamine HCl (vitamin B1) 100 mg 100 mg PO DAILY #90 tab 09/05/20 11/12/20 Rx tablet venlafaxine 150 mg 150 mg PO DAILY #30 cap 09/05/20 11/12/20 Rx capsule,extended release 24 hr venlafaxine 37.5 mg 37.5 mg PO DAILY #30 cap 09/05/20 11/12/20 Rx capsule,extended release 24 hr doxepin 3 mg tablet 3 mg PO BID PRN #30 tab 10/15/20 11/08/20 Rx hydroxyzine HCl 25 mg tablet 25 mg PO TID PRN #30 tab 10/17/20 11/12/20 Rx Eucerin 0 g TOPICAL TID #1 unit 10/25/20 11/08/20 Rx Restasis 0.4 ml OU BID #10 ea 10/25/20 11/08/20 Rx diphenhydramine HCl 25 mg PO Q4H PRN PRN #20 cap 10/25/20 11/08/20 Rx hydrocortisone 0 g TOPICAL TID #1 applic 10/25/20 11/08/20 Rx amlodipine 5 mg PO DAILY 11/12/20 11/12/20 History naltrexone 50 mg PO DAILY 11/12/20 11/12/20 History Exam Narrative Exam Narrative: Elderly female lying in bed with her eyes shut earlier she is awake and responsive to me. She is declining to answer my questions. Neck is supple normal range of motion Right shoulder is tender to abduction or internal and external rotation there is no visible swelling. Lungs are clear to auscultation Heart regular rate and rhythm Abdomen soft nondistended nontender Upper and lower extremities without abrasion or open sores. Normal pedal pulses. Patient has a tattoo over the dorsum of her left foot. Neuro exam grossly intact nonfocal. Normal speech pattern no facial asymmetry noted dysarthric speech. Normal handgrip strength muscle strength in lower extremities. Results Labs Result diagrams: 11/12/20 12:43 11/12/20 12:43 Labs: Laboratory Results - last 24 hr 11/12/20 11/12/20 11/12/20 11:29 11:50 11:50 WBC RBC Hgb Hct MCV MCH MCHC RDW Plt Count MPV Immature Gran % Neutrophils % Lymphocytes % Monocytes % Eosinophils % Basophils % Nucleated RBC % Absolute Neutrophils Absolute Lymphocytes Absolute Monocytes Absolute Eosinophils Absolute Basophils Sodium Potassium Chloride Carbon Dioxide Anion Gap BUN Creatinine Estimated GFR/1.73 m2 Glucose Calcium Magnesium Total Bilirubin AST ALT Alkaline Phosphatase Total Protein Albumin Lipase TSH Urine Color Yellow Urine Clarity Cloudy Urine pH 6.0 Ur Specific [place] >= 1.030 H Urine Protein 100 H Urine Ketones Trace H Urine Blood Negative Urine Nitrite Positive H Urine Bilirubin Negative Urine Urobilinogen 1.0 H Ur Leukocyte Esterase Moderate H Urine RBC Negative Urine WBC >50 H Ur Epithelial Cells Few Urine Crystals Negative Urine Bacteria Many Urine Casts Negative Urine Mucus Moderate Urine Other Negative Ur Culture Indicated? Yes Urine Glucose Negative Salicylates Urine Opiates Screen Negative Urine Methadone Screen Negative Acetaminophen Ur Barbiturates Screen Negative Ur Tricyclics Screen Negative Ur Amphetamines Screen Negative U Benzodiazepines Scrn Positive A Urine Cocaine Screen Negative Ur THC Screen Negative Ethyl Alcohol COVID-19 Source Nasopharyx SARS-CoV-2 (PCR) Negative 11/12/20 11/12/20 11/12/20 12:43 12:43 12:43 WBC 3.01 L RBC 3.59 L Hgb 12.0 Hct 37.1 MCV 103.3 H MCH 33.4 H MCHC 32.3 RDW 14.0 Plt Count 234 MPV 9.4 Immature Gran % 0.3 Neutrophils % 56.9 Lymphocytes % 30.9 Monocytes % 11.6 Eosinophils % 0.0 Basophils % 0.3 Nucleated RBC % 0 Absolute Neutrophils 1.71 Absolute Lymphocytes 0.93 L Absolute Monocytes 0.35 Absolute Eosinophils 0.00 Absolute Basophils 0.01 Sodium 144 Potassium 3.7 Chloride 108 H Carbon Dioxide 24.6 Anion Gap 11.4 H BUN 12 Creatinine 0.8 Estimated GFR/1.73 m2 >= 60.00 Glucose 98 Calcium 9.7 Magnesium Total Bilirubin 0.7 AST 39 H ALT 37 Alkaline Phosphatase 122 H Total Protein 6.9 Albumin 3.2 L Lipase 44 TSH 0.76 Urine Color Urine Clarity Urine pH Ur Specific [place]asio Urine Protein Urine Ketones Urine Blood Urine Nitrite Urine Bilirubin Urine Urobilinogen Ur Leukocyte Esterase Urine RBC Urine WBC Ur Epithelial Cells Urine Crystals Urine Bacteria Urine Casts Urine Mucus Urine Other Ur Culture Indicated? Urine Glucose Salicylates < 2.8 Urine Opiates Screen Urine Methadone Screen Acetaminophen < 2 Ur Barbiturates Screen Ur Tricyclics Screen Ur Amphetamines Screen U Benzodiazepines Scrn Urine Cocaine Screen Ur THC Screen Ethyl Alcohol 92.0 COVID-19 Source SARS-CoV-2 (PCR) 11/12/20 11/12/20 12:43 15:55 WBC RBC Hgb Hct MCV MCH MCHC RDW Plt Count MPV Immature Gran % Neutrophils % Lymphocytes % Monocytes % Eosinophils % Basophils % Nucleated RBC % Absolute Neutrophils Absolute Lymphocytes Absolute Monocytes Absolute Eosinophils Absolute Basophils Sodium Potassium Chloride Carbon Dioxide Anion Gap BUN Creatinine Estimated GFR/1.73 m2 Glucose Calcium Magnesium 1.9 Total Bilirubin AST ALT Alkaline Phosphatase Total Protein Albumin Lipase TSH Urine Color Urine Clarity Urine pH Ur Specific [place]asio Urine Protein Urine Ketones Urine Blood Urine Nitrite Urine Bilirubin Urine Urobilinogen Ur Leukocyte Esterase Urine RBC Urine WBC Ur Epithelial Cells Urine Crystals Urine Bacteria Urine Casts Urine Mucus Urine Other Ur Culture Indicated? Urine Glucose Salicylates Urine Opiates Screen Urine Methadone Screen Acetaminophen Ur Barbiturates Screen Ur Tricyclics Screen Ur Amphetamines Screen U Benzodiazepines Scrn Urine Cocaine Screen Ur THC Screen Ethyl Alcohol 19.4 COVID-19 Source SARS-CoV-2 (PCR) Last Vital Signs Temp 36.4 C L 11/12/20 19:30 Pulse 104 H 11/12/20 19:30 Resp 18 11/12/20 19:30 BP 175/84 H 11/12/20 19:30 Pulse Ox 98 11/12/20 19:30 COVID-19 Screening Have you, or household traveled for leisure in last 14 days?: No Had IN PERSON contact w/suspected or confirmed C-19 person: No
[2020-11-12 23:22] VITALS: BP 159/90; PULSE 80; RESP 20; TEMP 37; O2SAT 95
[2020-11-12] MEDS: Acetaminophen 325 MG TAB 650 MG PO (23:51)
[2020-11-13] MEDS: Acetaminophen 325 MG TAB 650 MG PO ×2 (04:19→11:30)
[2020-11-13 06:18] VITALS: BP 177/99; PULSE 80; RESP 18; TEMP 36.2; O2SAT 94
[2020-11-13 06:54] VITALS: BP 164/91
[2020-11-13] MEDS: amLODIPine 5 MG TAB PO (07:54)
[2020-11-13] MEDS: hydroCHLOROthiazide 12.5 MG TAB PO (07:54)
[2020-11-13] MEDS: Folic Acid 1 MG TAB PO (07:54)
[2020-11-13] MEDS: Venlafaxine 37.5 MG CAPCR PO (07:55)
[2020-11-13] MEDS: Pantoprazole 40 MG TABCR PO (07:55)
[2020-11-13] MEDS: Multivitamin TAB 1 TAB PO (07:55)
[2020-11-13] MEDS: Venlafaxine 150 MG CAPCR PO (07:55)
[2020-11-13] MEDS: Metoprolol 50 MG TAB PO (07:55)
[2020-11-13] MEDS: Sucralfate 1 GM TAB PO (07:55)
[2020-11-13] MEDS: Potassium Chloride 10 MEQ TABCR PO (07:55)
[2020-11-13] MEDS: Diclofenac 1% Gel 100 GM TUBE TP (10:01)
[2020-11-13] MEDS: hydrOXYzine HCL 25 MG TAB PO (11:29)
--- NOTE | 2020-11-13 11:53 | PDOC.MHCN ---
Date of service: 11/13/20 Time of Service: 11:00 Mental Health Crisis Note Presenting Issue How did you arrive at the ED and why did you come: Client was brought to the ED via ambulance due suicidal ideation. Precipitating Factors Client denied SI/HI at this time. There were no evidence of delusions present. Disposition BEHAVIOR: Client was cooperative and less tangential during the assessment today. Client was tearful at times during this assessment. EYE CONTACT: Client did not make eye contact during this assessment MOOD: Client presented with depressed and irritated mood. AFFECT: Client presented with flat affect. APPETITE: Client reported no eating disturbance SLEEP(trouble falling/staying asleep: Client reported she slept well. Plan Client is set to discharge home and her PCP as well as caregiver has been made aware of this. Signature Clinician's Name/Title: Joyce Prather / Emergency Services Clinician
--- NOTE | 2020-11-13 13:09 | DSE_ITS ---
Date of service: 11/13/20 Time of Service: 13:10 DS: Diagnosis Discharge Diagnosis (1) Suicidal ideation: Status: Acute Asessment and Plan: cleared by psych and no longer suicidal once sober (2) Acute UTI: Status: Acute Asessment and Plan: treated with fosfomycin. (3) Alcohol intoxication: Status: Acute Asessment and Plan: no interest in resources. not motivated to stop no withdrawal (4) Pruritus: Status: Acute (5) Shoulder pain, right: Status: Acute (6) Depression: Status: Chronic Discharge Plan Disposition Patient Disposition: HOME W/HOME HEALTH SERVICE Condition: Stable Discharge Details Reason For Visit: DEPRESSION, SUICIDAL IDEATION Admit Date/Time: 11/12/20 18:32 Admit Provider: Gwyn Blake Attending Provider: Gwyn Blake Primary Care Provider: Lavelle Galindo Hospital Course Hospital Course: This is a 75-year-old female with history of chronic depression, alcoholism, hypertension, hyperlipidemia, previous suicidal ideation, generalized pruritus, frequent falls resulting in fractures presents to the emergency department via EMS after admitting to alcohol use overnight reportedly telling EMS that she was suicidal. Allegedly she told EMS that she wanted to hurt her self was plan to cut herself with scissors. Upon arrival to emergency department patient was uncooperative but denying suicidal thoughts or plan. Screening medical exam and labs were done by emergency room personnel and request was made for mental health evaluation. However because the patient was intoxicated mental health indicated that they would evaluate her once she is no longer intoxicated. She was referred to observation overnight and remained medically stable. She was screened by mental health and was no longer suicidal once she sobered up. plan is for discharge to home with resumption of home health services. she received a dose of fosfomycin for her UTI and will not need any further antibiotics at discharge. discussed with Dr Joy. Home Meds and New Rx's Prescriptions: Continued Xiidra 5 % dropperette 1 drp ophthalmic (eye) BID RF: 0 magnesium oxide 400 mg magnesium capsule 400 mg PO BID Qty: 180 RF: 3 celecoxib [Celebrex] 100 mg capsule 100 mg PO BID Qty: 60 RF: 2 cholestyramine (with sugar) 4 gram powder 1 pwd PO BID Qty: 378 RF: 0 Ensure Active High Protein Liquid 414 ml PO DAILY Qty: 35415 RF: 11 dicyclomine 10 mg capsule 10 mg PO QID PRN (Reason: belly pain) Qty: 40 RF: 0 sucralfate 1 gram tablet 1 g PO AC & HS Qty: 120 RF: 5 ipratropium-albuterol 0.5 mg-3 mg(2.5 mg base)/3 mL solution for nebulization 3 ml IH QID PRN (Reason: shortness of breath) Qty: 90 RF: 3 fluticasone propionate 50 mcg/actuation spray,suspension 1 spray NS daily prn Qty: 9.9 RF: 2 amlodipine 10 mg tablet 10 mg PO DAILY Qty: 90 RF: 3 gabapentin 300 mg capsule 300 mg PO BID Qty: 90 RF: 5 hydrochlorothiazide 12.5 mg tablet 12.5 mg PO DAILY Qty: 90 RF: 3 metoprolol tartrate 50 mg tablet 50 mg PO BID Qty: 180 RF: 3 multivitamin [Multiple Vitamins] Tablet 1 tab PO DAILY Qty: 90 RF: 3 pantoprazole 40 mg tablet,delayed release (DR/EC) 40 mg PO DAILY Qty: 90 RF: 3 potassium chloride [Klor-Con M10] 10 mEq tablet,ER particles/crystals 10 meq PO DAILY Qty: 90 RF: 3 venlafaxine 37.5 mg capsule,extended release 24hr 37.5 mg PO DAILY Qty: 30 RF: 11 venlafaxine 150 mg capsule,extended release 24hr 150 mg PO DAILY Qty: 30 RF: 11 thiamine HCl (vitamin B1) 100 mg tablet 100 mg PO DAILY Qty: 90 RF: 3 folic acid 1 mg tablet 1 mg PO DAILY Qty: 90 RF: 3 doxepin 3 mg tablet 3 mg PO BID PRN (Reason: itch) Qty: 30 RF: 0 hydroxyzine HCl 25 mg tablet 25 mg PO TID PRN (Reason: itching) Qty: 30 RF: 2 Refresh Plus 0.5 % Dropperette 1 drp OU Q4H WHILE AWAKE Qty: 30 RF: 0 diphenhydramine HCl 25 mg Capsule 25 mg PO Q4H PRN PRNQty: 20 RF: 0 Restasis 0.05 % Dropperette 0.4 ml OU BID Qty: 10 RF: 0 hydrocortisone 1 % Cream 0 g topical TID Qty: 1 RF: 2 Eucerin Cream 0 g topical TID Qty: 1 RF: 1 ascorbic acid (vitamin C) [Vitamin C] 500 mg Tablet 500 mg PO BID Qty: 30 RF: 0 Bio-K plus 50 billion cell Capsule,Delayed Release(Dr/Ec) 1 cap PO DAILY Qty: 60 RF: 0 sennosides [Senokot] 8.6 mg tablet 8.6 mg PO PRN PRNRF: 0 chlordiazepoxide HCl 25 mg capsule 25 mg PO Q12H Qty: 7 RF: 0 naltrexone 50 mg tablet 50 mg PO DAILY RF: 0 amlodipine 5 mg tablet 5 mg PO DAILY RF: 0 Discharge Instructions Instructions: Help Prevent Suicide in Older Adults (DC), Alcohol Dependence (DC) Additional Instructions: avoid alcohol continue usual medication resume home health services. Stand Alone Forms: Nursing Discharge Form Referrals: Lavelle Galindo [Primary Care Provider] - 11/25/20 3:40 pm (Home visit, will call if it needs to be changed to a office visit) Activity:: Activity as Tolerated Equipment/Supplies:: No Equipment Needed Diet:: As Tolerated Discharge Orders Discharge Orders: Discharge Order (Routine); Ordered 11/13/20 Ordered By: Kimmy Sierra DS: Summary Time Spent with Patient providing and/or coordinating discharge services: Less than 30 minutes Status at Discharge Functional status at discharge: independent ambulation Overall status at discharge: patient is back to baseline Mental Status: mental status grossly normal Speech and Movement: agitated Mood: dysthymic mood Affect: sad Exam Const General: no acute distress, disheveled, frail appearing and ill appearing (older than stated age) chronically Orientation: alert, awake and oriented x3 HENMT Head: normal to inspection, normocephalic and atraumatic Face and sinus: normal facial exam Mouth: moist mucous membranes abnormal (Slightly dry) Eyes General: appearance normal, both eyes and all related structures Alignment and Position: alignment normal Periorbital: periorbital findings normal Eyelids: eyelids normal Conjunctivae: conjunctivae normal Sclera: sclerae normal Cornea: corneas normal Pupils: PERRL EOM: EOM intact bilaterally Direct ophthalmoscopy: normal light reflex Neck Neck: normal visual inspection, full ROM, no meningeal signs, trachea midline, supple and nontender Resp Effort & Inspection: normal respiratory effort and able to speak in complete sentences Auscultation: clear to auscultation bilaterally Cardio Rate: regular rate Rhythm: regular rhythm GI Palpation: soft, not firm, no guarding and nontender Auscultation: normal bowel sounds Back/Spine/Pelvis Back: no CVA tenderness and back tenderness (Diffuse mild lumbar discomfort) Skin General skin exam: no rashes or lesions noted Neuro General: patient alert, patient awake, oriented Patient Orientation: Person, moves all extremities and no focal motor deficits Cranial Nerves: CN's II-XI intact bilaterally Cognition: normal cognition Speech: speech normal Motor: muscle tone normal throughout Sensory Exam: no sensory deficits noted Extrem General: normal to inspection, full ROM and capillary refill normal Psych Appearance: disheveled Mental Status: mental status grossly normal Speech and Movement: agitated Mood: dysthymic mood Affect: sad Attitude: refuses to answer Thought Process: normal Thought Content: suicidality Insight: limited Judgment: limited DS: Data Vitals/I&O Vitals and I&O: Vital Signs Temperature 36.2 C L 11/13/20 06:18 Temperature Source Tympanic 11/13/20 06:18 Pulse 80 11/13/20 06:18 Pulse Rhythm Regular 11/13/20 06:38 Respiratory Rate 18 11/13/20 06:18 Respiratory Effort Non-Labored 11/13/20 06:38 Respiratory Depth Normal 11/13/20 06:38 Respiratory Pattern Normal 11/13/20 06:38 Blood Pressure 164/91 H 11/13/20 06:54 Pulse Oximetry 94 11/13/20 06:18 Oxygen Delivery Method Room Air 11/13/20 06:18 Oxygen Flow Rate 0 11/13/20 06:18 Pain Level 6 11/13/20 11:30 Intake & Output 11/12/20 11/13/20 11/13/20 23:59 11:59 23:59 Intake Total 1340 / 1340 580 / 580 Balance 1340 / 1340 580 / 580 Weight 62.8 kg Intake: IV 1000 / 1000 Oral 340 / 340 580 / 580 Other: Urine Color Yellow Yellow Urine Appearance Clear Clear Urine Odor Normal None Stool Occult Blood Negative Stool Size Large Small Stool Characteristics Formed Liquid Liquid Mucoid Brown Voiding Methods Toilet Toilet Toilet Diaper Incontinent Data Completed and Pending Labs on day of discharge: Labs from last 24 hours 11/12/20 11/12/20 11/12/20 15:55 12:43 12:43 Sodium Potassium Chloride Carbon Dioxide Anion Gap BUN Creatinine Estimated GFR/1.73 m2 Glucose Calcium Magnesium 1.9 Total Bilirubin AST ALT Alkaline Phosphatase Total Protein Albumin Lipase TSH Salicylates < 2.8 Acetaminophen < 2 Ethyl Alcohol 19.4 11/12/20 12:43 Sodium 144 Potassium 3.7 Chloride 108 H Carbon Dioxide 24.6 Anion Gap 11.4 H BUN 12 Creatinine 0.8 Estimated GFR/1.73 m2 >= 60.00 Glucose 98 Calcium 9.7 Magnesium Total Bilirubin 0.7 AST 39 H ALT 37 Alkaline Phosphatase 122 H Total Protein 6.9 Albumin 3.2 L Lipase 44 TSH 0.76 Salicylates Acetaminophen Ethyl Alcohol 92.0 Preliminary micro results at discharge 11/12/20 11:50 Urine Culture - Preliminary Urine - Reflex from Ua Gram Positive Lashonda Gram Positive Lashonda#2 Gram Negative Rob [facility] Medical History Adjustment disorder with depressed mood AMBER (acute kidney injury) Alcohol abuse Alcoholic gastritis without bleeding Alcoholic ketosis Allergic rhinitis Anemia (12/20/16) Back pain, chronic Calcific tendinitis of left shoulder CAP (community acquired pneumonia) Cataract (11/07/15) Cervical radicular pain neck pain and DJD [facility] 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) pls refrain from alcohol Chronic alcoholism she will not stop drinking unless she checks with me, so that we can help her avert withdrawal I do not think she is capable on her own--she would need placement to achieve required goal of 3 months of sobriety Chronic diarrhea Closed displaced fracture of proximal phalanx of right index finger with routine healing (06/03/17) Closed right humeral fracture Contusion of left little finger Corneal ulcer, right (~08/23/18) 08/23/18; [facility] Dehydration Depression Diarrhea Discharge planning issues DVT prophylaxis Dystrophic nail Elev transaminase/LDH due to alcohol Epigastric abdominal pain Fall as cause of accidental injury at home as place of occurrence Genital herpes simplex recurrent gential; suppressive Valtrex GERD (gastroesophageal reflux disease) GI bleed (12/20/16) Head contusion Headache History of alcohol abuse Humerus fracture (09/12/19) Right Hyperlipidemia Hypertension Incidental lung nodule, greater than or equal to 8mm 1cm, spiculated, stable for many years, recommend f/u in 6 mo Macrocytosis (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 Multiple rib fractures 03/11/19 [facility] Nausea and vomiting in adult Non-cardiac chest pain (09/21/16) [facility] 09/21/16 NEGATIVE MP Osteoarthritis Osteopenia Palliative care patient (03/21/17) Pancreatitis, alcoholic, acute Peripheral edema Pleural effusion on left 03/11/19 [facility] Presacral mass (~09/15/18) 09/15/18 [facility] Right rib fracture Sacral mass Sciatica right, epidural injuections [facility] Tendinitis of left rotator cuff Tubular adenoma of colon (01/28/17) Urinary incontinence 01/24/13 urethral suspension and sling at [facility] (bladder suspension 1991) UTI (urinary tract infection) 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 Bladder repair. Ligation of fallopian tube Repair bladder injury, simple Family History Mother No problems noted. Father , DROWNED at age 50. No problems noted. Sister Personal history of malignant neoplasm MELANOMA Sister No problems noted. Grandfather Personal history of malignant neoplasm STOMACH Grandfather Personal history of malignant neoplasm PROSTATE Grandmother Heart disease MT Acute ill-defined cerebrovascular disease Grandmother Personal history of malignant neoplasm UTERINE Aunt , MT Heart disease MT Aunt , MT Heart disease Brother No problems noted. Social History Smoking/Tobacco Use Status: Former Tobacco Use Quit Date: 08/05/20 Smoking risk assessment performed?: Yes Alcohol Intake: current Alcohol Intake frequency: 3 or more drinks per day Alcohol type: hard liquor Drug use: Never Substance use type: does not use Details: last ETOH yesterday afternoon Current gender identity: female Do you feel safe at home: Yes Do you feel safe in your relationship?: Yes
--- NOTE | 2020-11-13 17:42 | PDOC.CMPRO ---
- If Service Date Differs Date of service: 11/13/20 Time of Service: 17:42 Care Management Progress Note S/O: Leticia was lying in bed when CAPO met with her. Per report, she was admitted for depression and SI, and was intoxicated upon admission. Today, she is medically cleared and is no longer intoxicated. She reported that she was joking about SI, and is not feeling suicidal. She was screened by KAMLA Kidd, who determined that she does not meet criteria for inpatient psychiatric admission, and feels comfortable sending her home. Leticia is agreeable to return home at this time. CAPO spoke to her caregiver, Armida, informing her of the discharge plan. KAMLA Kidd, will attempt to process intake paperwork in the community for case management by [facility]. CAPO coordinated a ride home for Leticia by RCT. A: Leticia is a 75 year old female admitted to [facility] on 11/12/20 for depression, SI. P: Leticia will return home today as she is medically cleared and also cleared by [facility]. She will follow up with her PCP, and JEYSON in the community. CAPO coordinated a ride home via private vehicle RCT, and called her caregiver to inform her that she is being discharged home today.
--- NOTE | 2020-12-13 04:33 | ED.FU.B_ITS ---
Date of service: 12/13/20 Time of Service: 04:34 Follow Up Plan: I was contacted by Shayan from [facility]. Loco stated that the patient was at her standard baseline, and is refusing to come in for evaluation to the ER after initially calling EMS. EMS states that the patient's vital signs are stable, and the patient's exam on their clinical assessment is otherwise unremarkable. I stated that if the patient does not seem to be a harm to herself or others and demonstrates the ability to make the decision of refusal, and refusal is certainly warranted and within her rights as a person. I did ask if the patient has any assistance at her home, and EMS was told that the patient does have someone coming in shortly to visit with her. I made it clear that if they felt at any point that the patient needed to come in to be evaluated or if the patient changed her mind she could come in to be evaluated here in the ER and would be happy to see her
== END 2020-11-13 13:48 | disposition home health service (06) ==
LOC: ER 16:22 → MS 19:27
PROVIDERS: Physician Assistant; Admitting Provider Internal Medicine; Emergency Provider Physician Assistant; PCP Family Medicine; Visit Provider Internal Medicine
DX: F32.9 Major depressive disorder, single episode, unspecified (principal); F10.229 Alcohol dependence with intoxication, unspecified; R45.851 Suicidal ideations; N39.0 Urinary tract infection, site not specified; L29.9 Pruritus, unspecified; M25.511 Pain in right shoulder; G89.29 Other chronic pain; E78.5 Hyperlipidemia, unspecified; I10 Essential (primary) hypertension; R29.6 Repeated falls; K29.20 Alcoholic gastritis without bleeding; K59.09 Other constipation; K21.9 Gastro-esophageal reflux disease without esophagitis; M15.9 Polyosteoarthritis, unspecified; Z87.891 Personal history of nicotine dependence
CPT/HCPCS: 36415; 80053; 80307; 83690; 87635; 96360; 96361; 99217; 99220; 99285; 80320; 80329; 81003; 81015; 83735; 84443; 85025; 87086; G0378; J3490

== ENCOUNTER 2020-12-13 15:47 | Inpatient (IN) | payer OTHER, SELFPAY ==
[2020-12-13 15:54] VITALS: BP 109/65; PULSE 101; RESP 16; TEMP 36.1; O2SAT 95
--- NOTE | 2020-12-13 16:00 | DI.CT_ITS ---
EXAM: CT CHEST/ABD/PEL W TECHNIQUE: CT examination of the chest, abdomen, and pelvis was performed with bolus infusion of 100 cc of Omnipaque 350. COMPARISON: CT CT THORACIC LUMBAR SPINE REC from 11/10/2020 FINDINGS: There is no evidence of a thoracic vascular injury. There is a previously described stable 11 tanika meter spiculated right apical pulmonary nodule. Additional areas of presumed scarring also noted. N o change from prior studies. Multiple old healed rib fractures bilaterally.. No pneumothorax or ple ural effusion. No mediastinal hematoma. No adenopathy in the chest. Tracheobronchial tree appears int act. There is hepatic steatosis with no evidence of acute hepatic injury period spleen, and pancreas appea r normal. Gallbladder and bile ducts are normal. Adrenals and kidneys are unremarkable except for previously mentioned multiple bilateral renal cysts. . No evidence of urinary tract injury or obstruction. No abdominal or pelvic vascular injury seen. No abdominal or pelvic adenopathy. No significant abdomi nal wall hernia or hematoma. No evidence of bowel injury. Previously described presacral lobulated mass again noted, no change from prior studies. No acute fracture identified in the region surveyed. IMPRESSION: No evidence of acute injury of the chest, abdomen, or pelvis. RADIATION DOSE DELIVERED: 1,326.94mGy.cm Total DLP 1,326.94mGy.cm Total DLP DATA REPOSITORY: All CT scans at this facility are submitted to the National Radiology Data Registry (NRDR) Dose Index Registry (DIR) with the [employer] ([employer]). RADIATION OPTIMIZATION: All CT scans at this facility use at least one of these dose optimization te chniques: automated exposure control; mA and/or kV adjustment per patient size (includes targeted exa ms where dose is matched to clinical indication); or iterative reconstruction.
--- NOTE | 2020-12-13 16:00 | DI.CT_ITS ---
EXAM: CT HEAD CERVICAL SPINE WO COMPARISON: No exams were available for comparison FINDINGS: CT examination of the cervical spine was performed without contrast administration. There are severe degenerative changes of the cervical spine. There is no evidence of acute cervical spine fracture or dislocation. Intervertebral disc spaces are well maintained. Tracheolaryngeal structures appear intact. No cervical mass or adenopathy. Noncontrast cranial CT was performed. There is marked generalized cerebral atrophy. No evidence of acute intracranial hemorrhage, mass effect, or midline shift. No calvarial fracture. The orbital and temporal bone structures appear intact. Visualized mastoid air cells and paranasal sinuses appear clear. IMPRESSION: No evidence of acute cervical spine injury. No evidence of acute intracranial injury. RADIATION DOSE DELIVERED: 2,107.08mGy.cm Total DLP 2,107.08mGy.cm Total DLP DATA REPOSITORY: All CT scans at this facility are submitted to the National Radiology Data Registry (NRDR) Dose Index Registry (DIR) with the [employer] (ACR). RADIATION OPTIMIZATION: All CT scans at this facility use at least one of these dose optimization te chniques: automated exposure control; mA and/or kV adjustment per patient size (includes targeted exa ms where dose is matched to clinical indication); or iterative reconstruction.
--- NOTE | 2020-12-13 16:00 | RT.EKG_ITS ---
APPROVED REPORT Exam: Resting ECG Patient Location: E HR:102 bpm ECG Measurements Heart Rate 102 AXIS OR 188 P 45 QRSd 95 QRS -38 QT 394 T -25 QTc 514 Conclusion Sinus tachycardia...rate> 99 Left ventricular hypertrophy...multiple voltage criteria Inferior infarct, old...Q >35mS, II III aVF Probable anterior infarct, age indeterminate...Q >35mS, T neg, V2-V5 Prolonged QT interval...QTc >500mS I have reviewed and interpreted ECG and agree with software generated interpretation.
--- NOTE | 2020-12-13 16:00 | DI.RAD_ITS ---
EXAM: XR SHOULDER LT COMPLETE 2+V CLINICAL HISTORY: fall, left shoulder pain TECHNIQUE: COMPARISON: CR XR SHOULDER RT COMPLETE 2+V from 04/25/2020 FINDINGS: Three views were obtained. There are multiple old healed left rib fractures. There are degenerative changes of the glenohumeral and acromioclavicular joints with previously noted ununited fracture of the distal clavicle. No acute fracture or dislocation identified. IMPRESSION: RADIATION DOSE DELIVERED: Total DLP
--- NOTE | 2020-12-13 16:11 | W.ED.GENAD ---
Discharge Plan Discharge Details Chief Complaint: Orthopedic Admit Date/Time: 12/13/20 20:32 Admit Provider: Laly Dumont Attending Provider: Laly Dumont Primary Care Provider: Lavelle Galindo ED Provider: Monica Yarbrough Medical Decision Making Patient has been alert and oriented throughout the evaluation Patient her head CT and cervical spine do not show acute abnormality, her CT chest abdomen and pelvis are without noted trauma And patient is unable to stand unassisted and will need admission likely secondary to electrolyte abnormality, dehydration, malnutrition, chronic alcoholism She does not appear to be encephalopathic on my exam today She was supplemented with 40 mEq of p.o. potassium and 1 g of IV mag She is on telemetry She did not exhibit signs or symptoms of withdrawal until the last half an hour of her emergency room stay, she was given 1 g of IV Ativan prior to discharge from the emergency room and was discharged to the floor in stable condition She was accepted by the hospitalist, Dr. Dumont HPI This 75-year-old female with history of alcoholism, electrolyte abnormality, frequent falls presents with report of lightheadedness and slip and fall. She states that she was walking to the kitchen and attempt to obtain food when she slipped and fell. She states that she hit the left side of her body and now has significant pain. She states she was unable to assist herself and therefore notified EMS. She states she has pain to the entire left side of her body. She states that she hit her head but did not lose consciousness. She states secondary to her lightheadedness she has been having difficulty getting around at home. She states her last drink was yesterday and she drinks daily. She cannot tell me how much she typically drinks. She denies any new medication. She denies any current shortness of breath. She denies any history of anticoagulation. Denies nausea or vomiting. Denies diarrhea or urinary symptoms. States her pain is exacerbated with movement and describes her discomfort as a dull ache. General Date/Time Provider Initiated Documentation: 12/13/20 15:54. Related Data Home Medications Medication Instructions Recorded Confirmed Refresh Plus 1 drp OU Q4H WHILE AWAKE #30 each 06/20/19 11/19/20 magnesium oxide 400 mg PO BID #180 cap 07/17/19 11/19/20 food supplemt, lactose-reduced 414 ml PO DAILY #26785 ml 08/24/19 11/19/20 dicyclomine 10 mg capsule 10 mg PO QID PRN #40 cap 11/06/19 11/19/20 sucralfate 1 gram tablet 1 g PO AC & HS #120 tab 11/06/19 11/19/20 ipratropium 0.5 mg-albuterol 3 mg 3 ml IH QID PRN #90 ml 01/04/20 11/19/20 (2.5 mg base)/3 mL nebulization soln fluticasone propionate 50 1 spray NS daily prn #9.9 ml 03/25/20 11/19/20 mcg/actuation nasal spray,suspension Bio-K plus 1 cap PO DAILY #60 cap 05/12/20 11/19/20 ascorbic acid (vitamin C) [Vitamin 500 mg PO BID #30 tab 05/12/20 11/19/20 C] celecoxib 100 mg capsule 100 mg PO BID #60 cap 06/13/20 11/19/20 lifitegrast 5 % eye drops in a 1 drp OPHTHALMIC (EYE) BID 08/05/20 12/13/20 dropperette sennosides [Senokot] 8.6 mg PO PRN PRN 08/08/20 12/13/20 chlordiazepoxide HCl 25 mg PO Q12H #7 cap 08/09/20 11/19/20 cholestyramine (with sugar) 4 gram 1 pwd PO BID #378 g 08/27/20 11/19/20 oral powder amlodipine 10 mg tablet 10 mg PO DAILY #90 tab 09/05/20 12/13/20 folic acid 1 mg tablet 1 mg PO DAILY #90 tab 09/05/20 12/13/20 gabapentin 300 mg capsule 300 mg PO BID #90 cap 09/05/20 12/13/20 hydrochlorothiazide 12.5 mg tablet 12.5 mg PO DAILY #90 tab 09/05/20 11/19/20 metoprolol tartrate 50 mg tablet 50 mg PO BID #180 tab 09/05/20 11/19/20 multivitamin 1 tab PO DAILY #90 tab 09/05/20 11/19/20 pantoprazole 40 mg tablet,delayed 40 mg PO DAILY #90 tab 09/05/20 12/13/20 release potassium chloride 10 mEq 10 meq PO DAILY #90 tab 09/05/20 12/13/20 tablet,extended release(part/cryst) thiamine HCl (vitamin B1) 100 mg 100 mg PO DAILY #90 tab 09/05/20 12/13/20 tablet venlafaxine 150 mg 150 mg PO DAILY #30 cap 09/05/20 12/13/20 capsule,extended release 24 hr venlafaxine 37.5 mg 37.5 mg PO DAILY #30 cap 09/05/20 11/19/20 capsule,extended release 24 hr doxepin 3 mg tablet 3 mg PO BID PRN #30 tab 10/15/20 11/19/20 hydroxyzine HCl 25 mg tablet 25 mg PO TID PRN #30 tab 10/17/20 11/19/20 Eucerin 0 g TOPICAL TID #1 unit 10/25/20 11/19/20 Restasis 0.4 ml OU BID #10 ea 10/25/20 11/19/20 diphenhydramine HCl 25 mg PO Q4H PRN PRN #20 cap 10/25/20 11/19/20 hydrocortisone 0 g TOPICAL TID #1 applic 10/25/20 11/19/20 amlodipine 5 mg PO DAILY 11/12/20 11/19/20 naltrexone 50 mg PO DAILY 11/12/20 12/13/20 acamprosate 333 mg tablet,delayed 333 mg PO TID #90 tab 11/26/20 11/26/20 release Previous Rx's Medication Instructions Recorded Refresh Plus 1 drp OU Q4H WHILE AWAKE #30 each 06/20/19 magnesium oxide 400 mg PO BID #180 cap 07/17/19 food supplemt, lactose-reduced 414 ml PO DAILY #72202 ml 08/24/19 dicyclomine 10 mg capsule 10 mg PO QID PRN #40 cap 11/06/19 sucralfate 1 gram tablet 1 g PO AC & HS #120 tab 11/06/19 ipratropium 0.5 mg-albuterol 3 mg 3 ml IH QID PRN #90 ml 01/04/20 (2.5 mg base)/3 mL nebulization soln fluticasone propionate 50 1 spray NS daily prn #9.9 ml 03/25/20 mcg/actuation nasal spray,suspension Bio-K plus 1 cap PO DAILY #60 cap 05/12/20 ascorbic acid (vitamin C) [Vitamin 500 mg PO BID #30 tab 05/12/20 C] celecoxib 100 mg capsule 100 mg PO BID #60 cap 06/13/20 chlordiazepoxide HCl 25 mg PO Q12H #7 cap 08/09/20 cholestyramine (with sugar) 4 gram 1 pwd PO BID #378 g 08/27/20 oral powder amlodipine 10 mg tablet 10 mg PO DAILY #90 tab 09/05/20 folic acid 1 mg tablet 1 mg PO DAILY #90 tab 09/05/20 gabapentin 300 mg capsule 300 mg PO BID #90 cap 09/05/20 hydrochlorothiazide 12.5 mg tablet 12.5 mg PO DAILY #90 tab 09/05/20 metoprolol tartrate 50 mg tablet 50 mg PO BID #180 tab 09/05/20 multivitamin 1 tab PO DAILY #90 tab 09/05/20 pantoprazole 40 mg tablet,delayed 40 mg PO DAILY #90 tab 09/05/20 release potassium chloride 10 mEq 10 meq PO DAILY #90 tab 09/05/20 tablet,extended release(part/cryst) thiamine HCl (vitamin B1) 100 mg 100 mg PO DAILY #90 tab 09/05/20 tablet venlafaxine 150 mg 150 mg PO DAILY #30 cap 09/05/20 capsule,extended release 24 hr venlafaxine 37.5 mg 37.5 mg PO DAILY #30 cap 09/05/20 capsule,extended release 24 hr doxepin 3 mg tablet 3 mg PO BID PRN #30 tab 10/15/20 hydroxyzine HCl 25 mg tablet 25 mg PO TID PRN #30 tab 10/17/20 Eucerin 0 g TOPICAL TID #1 unit 10/25/20 Restasis 0.4 ml OU BID #10 ea 10/25/20 diphenhydramine HCl 25 mg PO Q4H PRN PRN #20 cap 10/25/20 hydrocortisone 0 g TOPICAL TID #1 applic 10/25/20 acamprosate 333 mg tablet,delayed 333 mg PO TID #90 tab 11/26/20 release Allergies Allergy/AdvReac Type Severity Reaction Status Date / Time Penicillins Allergy Mild Rash Verified 11/08/20 09:02 ramipril Allergy Unknown ITCHING Verified 11/08/20 09:02 meperidine [From Demerol] AdvReac Severe Nausea Verified 11/08/20 09:02 bupropion AdvReac Mild GI upset Verified 11/08/20 09:02 AMBER Inhibitors AdvReac Unknown COUGH Verified 11/08/20 09:02 alendronate sodium AdvReac Unknown GI Distress Verified 11/08/20 09:02 clarithromycin AdvReac Unknown intolerant Verified 11/08/20 09:02 paroxetine AdvReac Unknown Diarrhea Verified 11/08/20 09:02 General Stated Complaint: Orthopedic JORDAN: 3 Review of Systems Narrative: Review of systems obtained x7 aside from where indicated in HPI [facility] Medical History Adjustment disorder with depressed mood AMBER (acute kidney injury) Alcohol abuse Alcoholic gastritis without bleeding Alcoholic ketosis Allergic rhinitis Anemia (12/20/16) Back pain, chronic Calcific tendinitis of left shoulder CAP (community acquired pneumonia) Cataract (11/07/15) Cervical radicular pain neck pain and [facility]D [facility] 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) pls refrain from alcohol Chronic alcoholism she will not stop drinking unless she checks with me, so that we can help her avert withdrawal I do not think she is capable on her own--she would need placement to achieve required goal of 3 months of sobriety Chronic diarrhea Closed displaced fracture of proximal phalanx of right index finger with routine healing (06/03/17) Closed right humeral fracture Contusion of left little finger Corneal ulcer, right (~08/23/18) 08/23/18; [facility] Dehydration Depression Diarrhea Discharge planning issues DVT prophylaxis Dystrophic nail Elev transaminase/LDH due to alcohol Epigastric abdominal pain Fall as cause of accidental injury at home as place of occurrence Genital herpes simplex recurrent gential; suppressive Valtrex GERD (gastroesophageal reflux disease) GI bleed (12/20/16) Head contusion Headache History of alcohol abuse Humerus fracture (09/12/19) Right Hyperlipidemia Hypertension Incidental lung nodule, greater than or equal to 8mm 1cm, spiculated, stable for many years, recommend f/u in 6 mo Macrocytosis (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 Multiple rib fractures 03/11/19 [facility] Nausea and vomiting in adult Non-cardiac chest pain (09/21/16) [facility] 09/21/16 NEGATIVE MP Osteoarthritis Osteopenia Palliative care patient (03/21/17) Pancreatitis, alcoholic, acute Peripheral edema Pleural effusion on left 03/11/19 [facility] Presacral mass (~09/15/18) 09/15/18 [facility] Right rib fracture Sacral mass Sciatica right, epidural injuections [facility] Tendinitis of left rotator cuff Tubular adenoma of colon (01/28/17) Urinary incontinence 01/24/13 urethral suspension and sling at [facility] (bladder suspension 1991) UTI (urinary tract infection) Vision loss of right eye 08/17/18;[facility] Wernicke encephalopathy Surgical History Bladder Surgery suspension Colonoscopy - MAC (01/28/17) EGD - MAC (12/20/16) History of bilateral ligation of fallopian tubes History of Surgical Procedure a. Bladder repair. Ligation of fallopian tube Repair bladder injury, simple Family History Mother No problems noted. Father , DROWNED at age 50. No problems noted. Sister Personal history of malignant neoplasm MELANOMA Sister No problems noted. Grandfather Personal history of malignant neoplasm STOMACH Grandfather Personal history of malignant neoplasm PROSTATE Grandmother Heart disease ME Acute ill-defined cerebrovascular disease Grandmother Personal history of malignant neoplasm UTERINE Aunt , ME Heart disease ME Aunt , ME Heart disease Brother No problems noted. Social History Smoking/Tobacco Use Status: Former Tobacco Use Quit Date: 08/05/20 Smoking risk assessment performed?: Yes Alcohol Intake: current Alcohol Intake frequency: 3 or more drinks per day Alcohol type: hard liquor Drug use: Never Substance use type: does not use Details: last ETOH yesterday afternoon Current gender identity: female Do you feel safe at home: Yes Do you feel safe in your relationship?: Yes Exam Const General: cooperative Other: Chronically ill-appearing [facility] Head: no palpable skull fracture Other: Moist mucous membranes, uvula midline Eyes Pupils: PERRL Neck Other: No midline tenderness Chest Chest: normal inspection of the chest Other: Chest wall tenderness without crepitus or evidence of flail chest Resp Effort & Inspection: normal respiratory effort Auscultation: clear to auscultation bilaterally Cardio Rate: regular rate Rhythm: regular rhythm GI Other: Left upper quadrant tenderness, no CVA tenderness, no ecchymosis Back/Spine/Pelvis Other: No lumbar spine tenderness, or thoracic tenderness Skin Other: Excoriated lesions noted Neuro General: patient alert and patient oriented x3 Psych Other: Denies hallucinations, denies suicidal ideation, disheveled Course Vital Signs Vital signs: Vital Signs Temperature 36.1 C L 12/13/20 15:54 Pulse 101 H 12/13/20 15:54 Respiratory Rate 16 12/13/20 15:54 Blood Pressure 109/65 12/13/20 15:54 Pulse Oximetry 95 12/13/20 15:54 Temperature 36.1 C L 12/13/20 15:54 Temperature Source Temporal Artery Scan 12/13/20 15:54 Pulse 101 H 12/13/20 15:54 Respiratory Rate 16 12/13/20 15:54 Respiratory Effort 12/13/20 15:56 Blood Pressure 109/65 12/13/20 15:54 Blood Pressure Position Supine 12/13/20 15:54 Pulse Oximetry 95 12/13/20 15:54 Oxygen Delivery Method Room Air 12/13/20 15:54 Oxygen Flow Rate 0 12/13/20 15:54 Pain Level 8 12/13/20 15:54
[2020-12-13 16:44] VITALS: BP 124/67; PULSE 100
[2020-12-13 16:58] LABS: Abs Immature Grans 0.03 10^3/uL (0.0-0.06); Absolute Basophil Count 0.01 10^3/uL (0.0-0.2); Absolute Lymphocyte Count 1.23 10^3/uL (1.2-3.4); Absolute Monocyte Count 0.23 10^3/uL (0.1-0.8); Absolute Neutrophil Count 1.32 10^3/uL (1.2-6.7); Basophils % 0.4; HCT 41.6 % (36.0-46.0); HGB 13.7 g/dL (11.2-15.7); Immature Grans % 1.1; Lymphocytes % 43.6; MCH 32.9 pg (27.0-33.0); MCHC 32.9 % (32.0-36.0); MCV 99.8 fL (80-95); MPV 9.9 fL (8.0-11.0); Monocytes % 8.2; Neutrophils % 46.7; Nucleated RBC 0 %; Platelet Count 147 10^3/uL (130-400); RBC 4.17 10^6/uL (3.93-5.22); RDW 14.4 % (11.7-14.6); RDW-SD 52.8 fL; WBC 2.82 10^3/uL (4.4-10.8)
[2020-12-13 17:00] VITALS: BP 111/62; PULSE 99
[2020-12-13 17:14] LABS: ALT 88 U/L (14-59); AST 184 U/L (15-37); Albumin 3.9 g/dL (3.4-5.0); Alkaline Phosphatase 118 U/L (46-116); BUN 15 mg/dL (7-18); Bilirubin, Total 1.3 mg/dL (0.2-1.0); CREATININE 1.2 mg/dL (0.55-1.02); Calcium 10.5 mg/dL (8.5-10.1); Chloride 99 mmol/L (98-107); Creatine Kinase 28 U/L (26-192); Estimated GFR 43.91 (mL/min/1.73m2); Glucose 140 mg/dL (74-106); Lipase 67 U/L (73-393); Magnesium 1.4 mg/dL (1.8-2.4); Sodium 142 mmol/L (136-145); Total Protein 7.6 g/dL (6.4-8.2)
[2020-12-13 17:16] LABS: Potassium 2.9 mmol/L (3.5-5.1)
[2020-12-13 17:25] VITALS: TEMP 36.8; O2SAT 98
[2020-12-13 17:42] LABS: Bilirubin Moderate (Negative); Blood Negative (Negative); Clarity Cloudy (Clear); Glucose Negative (Negative); Ketones 15 mg/dL (Negative); Leukocyte Esterase Trace (Negative); Nitrite Negative (Negative); Specific Gravity 1.025 (1.005-1.025); pH 5.5 (5-8)
[2020-12-13 18:12] LABS: C & S Indicated? No; Crystals Many Amorphous HPF (Negative)
[2020-12-13] MEDS: MAGNESIUM SULFATE 1 GM/100 ML BAG IVPB (18:47)
[2020-12-13] MEDS: Normal Saline - Diluent 50 ML VIAL IV (19:23)
--- NOTE | 2020-12-13 19:30 | DI.VRAD_ITS ---
PROCEDURE INFORMATION: Exam: CT Head Without Contrast Exam date and time: 12/13/2020 4:10 PM Age: 75 years old Clinical indication: Injury or trauma; Patient HX: Fall, ETOH, headache TECHNIQUE: Imaging protocol: Computed tomography of the head without contrast. COMPARISON: CT HEAD CERVICAL SPINE WO 11/10/2020 11:20 PM FINDINGS: Brain: Mild nonspecific hypodensities of the periventricular and deep subcortical white matter, most likely secondary to chronic small vessel ischemic change. No intracranial hemorrhage or extra-axial fluid collection. No evidence of mass effect or midline shift. Schmitz-white matter differentiation is normal. Cerebral ventricles: Mild prominence of the ventricles and sulci, most likely attributed to parenchymal volume loss. Bones/joints: No acute osseus lesion or fracture. Paranasal sinuses: Visualized sinuses are unremarkable. No fluid levels. Mastoid air cells: Unremarkable. Soft tissues: Unremarkable. IMPRESSION: 1. No acute intracranial pathology. 2. Other chronic findings, as above. PROCEDURE INFORMATION: Exam: CT Cervical Spine Without Contrast Exam date and time: 12/13/2020 4:10 PM Age: 75 years old Clinical indication: Injury or trauma; Patient HX: Fall, ETOH, headache TECHNIQUE: Imaging protocol: Computed tomography images of the cervical spine without contrast. COMPARISON: CT HEAD CERVICAL SPINE WO 11/10/2020 11:20 PM FINDINGS: Bones/joints: Vertebral body heights are maintained. No locked or perched facets. Multilevel facet arthropathy. No acute cervical spine fracture. The dens is intact. Atlanto-axial intervals are normal. Chronic 0.3 cm degenerative anterior subluxation of C3 on C4 and C5 on C6. Discs/Spinal canal/Neural foramina: Multilevel degenerative changes with intervertebral disc height loss and osteophyte formation, with multilevel areas of mild canal stenosis. Soft tissues: Unremarkable. IMPRESSION: 1. No acute cervical spine fracture. 2. Chronic findings, as above. Dictated and Authenticated by: Jason Durant MD. Ordering:RIZWAN Anderson MD
--- NOTE | 2020-12-13 19:46 | DI.VRAD_ITS ---
PROCEDURE INFORMATION: Exam: CT Chest With Contrast; Diagnostic Exam date and time: 12/13/2020 7:13 PM Age: 75 years old Clinical indication: Abdominal pain; Generalized; Left-sided chest pain; Patient HX: Fall, left chest, abd pain, ETOH TECHNIQUE: Imaging protocol: Diagnostic computed tomography of the chest with contrast. COMPARISON: CT CHEST/ABD/PEL WO 11/10/2020 11:30 PM FINDINGS: Lungs: An 11 mm ground-glass nodule with some spiculation of its margins again seen along the posterior margin of the apex of the right lung, unchanged in appearance. A discrete stranded parenchymal density seen near the apex of the left lung posteriorly was also present previously the lungs and their pleural margins are otherwise unchanged with no new parenchymal lung contusion or other consolidation/collapse detected. Pleural spaces: No pneumothorax or pleural effusion. Heart: Heart is again enlarged and there is no pericardial effusion detected. Aorta: Normal thoracic aorta with no evidence of dissection or other traumatic injury. No aortic aneurysm detected. Lymph nodes: No lymphadenopathy detected at thoracic levels. Bones/joints: Multiple healed fractures are again seen involving the posterior and posterolateral segments of the mid to lower ribs bilaterally with no acute fractures detected at thoracic levels. Soft tissues: Unremarkable. IMPRESSION: 1. Stable appearance of 11 mm ground-glass nodule at the posterior apex of the right lung and of focal scarring seen posteriorly near the left apex with no new evidence of parenchymal lung contusion, pneumothorax or pleural effusion. 2. Multiple healed fractures again seen involving mid to lower ribs bilaterally no acute fractures detected at thoracic levels. PROCEDURE INFORMATION: Exam: CT Abdomen And Pelvis With Contrast Exam date and time: 12/13/2020 7:13 PM Age: 75 years old Clinical indication: Abdominal pain; Generalized; Left-sided chest pain; Patient HX: Fall, left chest, abd pain, ETOH TECHNIQUE: Imaging protocol: Computed tomography of the abdomen and pelvis with contrast. COMPARISON: CT CHEST/ABD/PEL WO 11/10/2020 11:30 PM FINDINGS: Liver: Hepatic steatosis is evident without focal liver lesion. Gallbladder and bile ducts: Gallbladder is normal and there is no abnormal pericholecystic fluid or dilatation of intrahepatic biliary radicles. Pancreas: Pancreas is normal in appearance with no evidence of pancreatic contusion, transection or abnormal peripancreatic fluid collection. Spleen: Spleen is normal appearance with no splenic laceration or abnormal perisplenic fluid detected. Adrenal glands: Normal. No mass. Kidneys and ureters: Multiple discrete fluid attenuation cysts are seen bilaterally, the largest measuring up to 3 cm in size along the anterior margin of the right kidney and these require no further follow-up. No evidence of hydronephrosis, renal laceration or abnormal perinephric fluid. Stomach and bowel: Stomach and segments of large and small bowel are unremarkable. Appendix: Normal appendix is identified without evidence of inflammation. Intraperitoneal space: No pneumoperitoneum or free intraperitoneal air is detected. Vasculature: There is no evidence of aortic aneurysm, dissection or other vascular injury. Lymph nodes: Unremarkable. No enlarged lymph nodes. Urinary bladder: Nondistended but otherwise unremarkable. Reproductive: Unremarkable as visualized. Bones/joints: Degenerative disc and facet changes seen throughout lumbar levels are stable in appearance and no acute fractures are detected. Soft tissues: A lobular presacral soft tissue mass of heterogeneous density again measures up to 4.4 cm in maximal oblique dimension on axial images and is indeterminate (see image 99, series 4). IMPRESSION: 1. No new evidence of an acute abdominopelvic visceral injury is detected. 2. A discrete and lobular 4.4 cm presacral soft tissue mass is indeterminate although neoplasm cannot be excluded. An enhanced MRI of the pelvis is suggested for further evaluation. Dictated and Authenticated by: Pranav Adame MD. Ordering:RIZWAN Anderson MD
--- NOTE | 2020-12-13 19:49 | DI.VRAD_ITS ---
PROCEDURE INFORMATION: Exam: XR Left Shoulder Exam date and time: 12/13/2020 7:21 PM Age: 75 years old Clinical indication: Pain; Upper arm; Left TECHNIQUE: Imaging protocol: XR Left shoulder. Views: 2 or more views. COMPARISON: CR XR SHOULDER LT COMPLETE 2+V 10/24/2019 11:15 AM FINDINGS: Bones/joints: Chronic ununited fracture again seen involving the distal segment of the left clavicle adjacent to the acromioclavicular joint with associated osteophyte formation along the margins of this ununited fracture. Glenohumeral alignment is normal and no acute fracture is detected. Soft tissues: Unremarkable. IMPRESSION: No acute fracture is seen. Dictated and Authenticated by: Pranav Adame MD. Ordering:RIZWAN Anderson MD
[2020-12-13] MEDS: Potassium Chloride 20 MEQ TABCR 40 MEQ PO (20:43)
[2020-12-13] MEDS: LORazepam 2 MG/ML VIAL 1 MG IVP (21:13)
[2020-12-13] MEDS: MAGNESIUM SULFATE 2 GM/50 ML BAG IVPB (21:20)
[2020-12-13 21:35] LABS: Source Nasal/Nares
[2020-12-13 21:58] VITALS: BP 143/95; PULSE 100; RESP 18; TEMP 36.6; O2SAT 97
[2020-12-13 23:03] LABS: COVID-19 PCR Negative (Negative)
[2020-12-14] VITALS (8 sets, daily range): BP systolic 126–170; BP diastolic 74–99; PULSE 70–110; RESP 16–20; TEMP 36.3–36.9; O2SAT 97–98
[2020-12-14] MEDS: THIAMINE 100 MG in Normal Saline 100 ML 200 MG IVPB (00:44)
[2020-12-14] MEDS: POTASSIUM CHLORIDE/0.9% NACL 1,000 ML 100 MEQ IV ×2 (00:44→11:27)
[2020-12-14] MEDS: Heparin 5,000 UNITS/ML VIAL 5000 UNITS SC (00:45)
[2020-12-14] MEDS: Normal Saline Flush 10 ML SYR IVP ×2 (00:45→09:30)
--- NOTE | 2020-12-14 01:18 | W.PM.HP.N ---
Date of service: 12/14/20 Time of Service: : Assessment and Plan Assessment and plan (1) Lightheadedness: Status: Acute Assessment and plan: Given h/o heavier EtOH use than in the past as well as patient not being compliant with outpatient regimen, ddx is wide and includes Wernicke's encephalopathy (highly suspected), electrolyte abnormalities, orthostasis, dehydration, withdrawal effect from medication (such as venlafaxine), cardiac arrhythmia, and alcohol intoxication proper. Will treat with high dose thiamine, IVF, replete electrolytes, verify and resume outpatient medications. Place on tele. Check orthostatics. Obtain echo. (2) Fall: Status: Acute Assessment and plan: As above. The patient has known ambulatory dysfunction and was intoxicated. There appear to be no acute fractures. No evidence of rhabdo. I am concerned about concussion. SHe is slower to respond today than her baseline. Neurochecks Q4H Will manage pain. PT/OT c/s. (3) Dehydration: Status: Acute Assessment and plan: IVF (4) Transaminitis: Status: Acute Assessment and plan: Likely due to alcoholic liver disease. Hepatic steatosis on CT abdomen/pelvis. No evidence of cholelithiasis/choledocholithiasis/cholangitis. Minimal tenderness is present on physical exam, so I will order a US RUQ. Will ensure no alcoholic hepatitis. Check INR. Trend LFTs. (5) Alcohol intoxication: Status: Acute Assessment and plan: Monitor for signs of alcohol w/d. Read above re high dose thiamine. Qualifiers: Complication of substance-induced condition: uncomplicated Qualified Code(s): F10.920 - Alcohol use, unspecified with intoxication, uncomplicated (6) Hypokalemia: Status: Acute Assessment and plan: Replete (7) Hypomagnesemia: Status: Acute Assessment and plan: Replete (8) Ambulatory dysfunction: Status: Acute Assessment and plan: Wernicke's could be contributing. High dose thiamine therapy. PT/OT c/s May require subacute rehab (9) Alcohol abuse: Status: Chronic Assessment and plan: As above. Thiamine/vitamins. Monitor on CIWA. Patient does not usually withdraw from alcohol in our facility. (10) DVT prophylaxis: Status: Acute Assessment and plan: TEDS/SCDS. Abstain from chemical DVT ppx due to h/o GI bleeding (11) Discharge planning issues: Status: Acute Assessment and plan: DNR/DNI PT/OT consults Palliative care consult May require subacute rehab History of Present Illness History of Present Illness Chief Complaint: Everything hurts. Fall at home, generalized weakness, poor PO intake. Narrative: Ms Garza is a 75 year old female who is well known to our service, who has a PMHx of alcohol abuse, hypertension, hyperlipidemia, lung nodule, pelvic mass, ambulatory dysfunction with multiple falls at home, who had fallen at home on the day of presentation (12/13/20) and could not get up for at least an hour. Patient was brought to [facility] ED by ambulance. She had reported shoulder pain to EMS. She reported pain all over to the ED and that she had fallen because of feeling lightheaded which has been ongoing. Patient has a animal care taker who comes to her every couple of days to set up her medications. Per ED provider, her animal care taker had stated that the patient has not been taking her medications, eating or drinking adequate PO, but instead has been consuming alcohol all day. Her alcohol level in the ED was 156 mg/dL. The patient was unable to ambulate in the ED and continued to have pain. She is dehydrated, hypokalemic, and hypomagnesemic. She tested negative for COVID -19. Hospitalist admission was requested. To me, the patient describes falling as I slipped out of bed when I was trying to go get some food. I fell over backwards. I hit my head. She states she has her chronic headache right now. Denies dizziness/lightheadedness now. Endorses L-sided chest wall pain which is reproducible with palpation. Endorses ROSS but no shortness of breath at rest. Denies n/v. States she does not know whether there has been any blood in her stool. She does not know what month or year it is. Review of Systems All systems reviewed & are unremarkable except as noted in HPI and below [facility] Medical History Adjustment disorder with depressed mood AMBER (acute kidney injury) Alcohol abuse Alcoholic gastritis without bleeding Alcoholic ketosis Allergic rhinitis Anemia (12/20/16) Back pain, chronic Calcific tendinitis of left shoulder CAP (community acquired pneumonia) Cataract (03/11/16) Cervical radicular pain neck pain and DJD [facility] 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) pls refrain from alcohol Chronic alcoholism she will not stop drinking unless she checks with me, so that we can help her avert withdrawal I do not think she is capable on her own--she would need placement to achieve required goal of 3 months of sobriety Chronic diarrhea Closed displaced fracture of proximal phalanx of right index finger with routine healing (06/03/17) Closed right humeral fracture Contusion of left little finger Corneal ulcer, right (~08/23/18) 08/23/18; [facility] Dehydration Depression Diarrhea Discharge planning issues DVT prophylaxis Dystrophic nail Elev transaminase/LDH due to alcohol Epigastric abdominal pain Fall as cause of accidental injury at home as place of occurrence Genital herpes simplex recurrent gential; suppressive Valtrex GERD (gastroesophageal reflux disease) GI bleed (12/20/16) Head contusion Headache History of alcohol abuse Humerus fracture (09/12/19) Right Hyperlipidemia Hypertension Incidental lung nodule, greater than or equal to 8mm 1cm, spiculated, stable for many years, recommend f/u in 6 mo Macrocytosis (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 Multiple rib fractures 03/11/19 [facility] Nausea and vomiting in adult Non-cardiac chest pain (09/21/16) [facility] [place] 09/21/16 NEGATIVE MP Osteoarthritis Osteopenia Palliative care patient (03/21/17) Pancreatitis, alcoholic, acute Peripheral edema Pleural effusion on left 03/11/19 [facility] Presacral mass (~09/15/18) 09/15/18 [facility] Right rib fracture Sacral mass Sciatica right, epidural injuections [facility] Tendinitis of left rotator cuff Tubular adenoma of colon (01/28/17) Urinary incontinence 01/24/13 urethral suspension and sling at [facility] [place] (bladder suspension 1991) UTI (urinary tract infection) 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 Bladder repair. Ligation of fallopian tube Repair bladder injury, simple Family History Mother No problems noted. Father , DROWNED at age 50. No problems noted. Sister Personal history of malignant neoplasm MELANOMA Sister No problems noted. Grandfather Personal history of malignant neoplasm STOMACH Grandfather Personal history of malignant neoplasm PROSTATE Grandmother Heart disease AR Acute ill-defined cerebrovascular disease Grandmother Personal history of malignant neoplasm UTERINE Aunt , AR Heart disease AR Aunt , AR Heart disease Brother No problems noted. Social History Smoking/Tobacco Use Status: Former Tobacco Use Quit Date: 08/05/20 Smoking risk assessment performed?: Yes Alcohol Intake: current Alcohol Intake frequency: 3 or more drinks per day Alcohol type: hard liquor Drug use: Never Substance use type: does not use Details: last ETOH yesterday afternoon Current gender identity: female Do you feel safe at home: Yes Do you feel safe in your relationship?: Yes Meds Allergies and Home Medications Allergies Allergy/AdvReac Type Severity Reaction Status Date / Time Penicillins Allergy Mild Rash Verified 11/08/20 09:02 ramipril Allergy Unknown ITCHING Verified 11/08/20 09:02 meperidine [From Demerol] AdvReac Severe Nausea Verified 11/08/20 09:02 bupropion AdvReac Mild GI upset Verified 11/08/20 09:02 AMBER Inhibitors AdvReac Unknown COUGH Verified 11/08/20 09:02 alendronate sodium AdvReac Unknown GI Distress Verified 11/08/20 09:02 clarithromycin AdvReac Unknown intolerant Verified 11/08/20 09:02 paroxetine AdvReac Unknown Diarrhea Verified 11/08/20 09:02 Home Medications Medication Instructions Recorded Confirmed Type Refresh Plus 1 drp OU Q4H WHILE AWAKE #30 each 06/20/19 11/19/20 Rx magnesium oxide 400 mg PO BID #180 cap 07/17/19 11/19/20 Rx food supplemt, lactose-reduced 414 ml PO DAILY #89668 ml 08/24/19 11/19/20 Rx dicyclomine 10 mg capsule 10 mg PO QID PRN #40 cap 11/06/19 11/19/20 Rx sucralfate 1 gram tablet 1 g PO AC & HS #120 tab 11/06/19 11/19/20 Rx ipratropium 0.5 mg-albuterol 3 mg 3 ml IH QID PRN #90 ml 01/04/20 11/19/20 Rx (2.5 mg base)/3 mL nebulization soln fluticasone propionate 50 1 spray NS daily prn #9.9 ml 03/25/20 11/19/20 Rx mcg/actuation nasal spray,suspension Bio-K plus 1 cap PO DAILY #60 cap 05/12/20 11/19/20 Rx ascorbic acid (vitamin C) [Vitamin 500 mg PO BID #30 tab 05/12/20 11/19/20 Rx C] celecoxib 100 mg capsule 100 mg PO BID #60 cap 06/13/20 11/19/20 Rx lifitegrast 5 % eye drops in a 1 drp OPHTHALMIC (EYE) BID 08/05/20 12/13/20 History dropperette sennosides [Senokot] 8.6 mg PO PRN PRN 08/08/20 12/13/20 History chlordiazepoxide HCl 25 mg PO Q12H #7 cap 08/09/20 11/19/20 Rx cholestyramine (with sugar) 4 gram 1 pwd PO BID #378 g 08/27/20 11/19/20 Rx oral powder amlodipine 10 mg tablet 10 mg PO DAILY #90 tab 09/05/20 12/13/20 Rx folic acid 1 mg tablet 1 mg PO DAILY #90 tab 09/05/20 12/13/20 Rx gabapentin 300 mg capsule 300 mg PO BID #90 cap 09/05/20 12/13/20 Rx hydrochlorothiazide 12.5 mg tablet 12.5 mg PO DAILY #90 tab 09/05/20 11/19/20 Rx metoprolol tartrate 50 mg tablet 50 mg PO BID #180 tab 09/05/20 11/19/20 Rx multivitamin 1 tab PO DAILY #90 tab 09/05/20 11/19/20 Rx pantoprazole 40 mg tablet,delayed 40 mg PO DAILY #90 tab 09/05/20 12/13/20 Rx release potassium chloride 10 mEq 10 meq PO DAILY #90 tab 09/05/20 12/13/20 Rx tablet,extended release(part/cryst) thiamine HCl (vitamin B1) 100 mg 100 mg PO DAILY #90 tab 09/05/20 12/13/20 Rx tablet venlafaxine 150 mg 150 mg PO DAILY #30 cap 09/05/20 12/13/20 Rx capsule,extended release 24 hr venlafaxine 37.5 mg 37.5 mg PO DAILY #30 cap 09/05/20 11/19/20 Rx capsule,extended release 24 hr doxepin 3 mg tablet 3 mg PO BID PRN #30 tab 10/15/20 11/19/20 Rx hydroxyzine HCl 25 mg tablet 25 mg PO TID PRN #30 tab 10/17/20 11/19/20 Rx Eucerin 0 g TOPICAL TID #1 unit 10/25/20 11/19/20 Rx Restasis 0.4 ml OU BID #10 ea 10/25/20 11/19/20 Rx diphenhydramine HCl 25 mg PO Q4H PRN PRN #20 cap 10/25/20 11/19/20 Rx hydrocortisone 0 g TOPICAL TID #1 applic 10/25/20 11/19/20 Rx amlodipine 5 mg PO DAILY 11/12/20 11/19/20 History naltrexone 50 mg PO DAILY 11/12/20 12/13/20 History acamprosate 333 mg tablet,delayed 333 mg PO TID #90 tab 11/26/20 11/26/20 Rx release Exam Narrative Exam Narrative: General: Elderly female who is much slower to respond than her baseline, A&Ox2, appears to have a headache Neurological: A&Ox2, +horizontal nystagmus, slowed speech, inattentive; no focal deficits otherwise Psychiatric: inattentive/distracted Skin: visible skin intact HEENT: Atraumatic, normocephalic, EOMI with horizontal nystagmus, dry MM, clear oropharynx, no submandibular or cervical lymphadenopathy, no goiter or JVD Cardiovascular: RRR, mildly tachycardic Lungs: CTAB Gastrointestinal: soft, minimal tendernes in RUQ, distended Genitourinary: deferred Extremities: no edema BLE's, wearing TEDs/SCD's. Results Imaging Additional studies: EKG: ST, HR 102, borderlie inferolateral ST segment depressions (seen on prior EKG, but less so). No acute ischemia. CT head: 1. No acute intracranial pathology. 2. Other chronic findings, as above. CT c-spine: 1. No acute cervical spine fracture. 2. Chronic findings, as above. CT chest: 1. Stable appearance of 11 mm ground-glass nodule at the posterior apex of the right lung and of focal scarring seen posteriorly near the left apex with no new evidence of parenchymal lung contusion, pneumothorax or pleural effusion. 2. Multiple healed fractures again seen involving mid to lower ribs bilaterally no acute fractures detected at thoracic levels. CT abdomen/pelvis: 1. No new evidence of an acute abdominopelvic visceral injury is detected. 2. A discrete and lobular 4.4 cm presacral soft tissue mass is indeterminate although neoplasm cannot be excluded. An enhanced MRI of the pelvis is suggested for further evaluation. XR L shoulder: No acute fracture is seen. Labs Result diagrams: 12/13/20 16:47 12/13/20 16:47 Labs: Laboratory Results - last 24 hr 12/13/20 12/13/20 12/13/20 16:47 16:47 17:17 WBC 2.82 L RBC 4.17 Hgb 13.7 Hct 41.6 MCV 99.8 H MCH 32.9 MCHC 32.9 RDW 14.4 Plt Count 147 MPV 9.9 Immature Gran % 1.1 Neutrophils % 46.7 Lymphocytes % 43.6 Monocytes % 8.2 Eosinophils % 0.0 Basophils % 0.4 Nucleated RBC % 0 Absolute Neutrophils 1.32 Absolute Lymphocytes 1.23 Absolute Monocytes 0.23 Absolute Eosinophils 0.00 Absolute Basophils 0.01 Sodium 142 Potassium 2.9 L Chloride 99 Carbon Dioxide 31.0 Anion Gap 12.0 H BUN 15 Creatinine 1.2 H Estimated GFR/1.73 m2 43.91 Glucose 140 H Calcium 10.5 H Magnesium 1.4 L Total Bilirubin 1.3 H AST 184 H ALT 88 H Alkaline Phosphatase 118 H Creatine Kinase 28 Total Protein 7.6 Albumin 3.9 Lipase 67 Urine Color Urine Clarity Cloudy Urine pH 5.5 Ur Specific Prospect 1.025 Urine Protein 100 H Urine Ketones 15 H Urine Blood Negative Urine Nitrite Negative Urine Bilirubin Moderate H Urine Urobilinogen 1.0 H Ur Leukocyte Esterase Trace H Urine RBC Not Applicable Urine WBC Not Applicable Ur Epithelial Cells Not Applicable Urine Crystals Many amorphous Urine Bacteria Not Applicable Urine Mucus Not Applicable Ur Culture Indicated? No Urine Glucose Negative Ethyl Alcohol 156.0 COVID-19 Source SARS-CoV-2 (PCR) 12/13/20 21:20 WBC RBC Hgb Hct MCV MCH MCHC RDW Plt Count MPV Immature Gran % Neutrophils % Lymphocytes % Monocytes % Eosinophils % Basophils % Nucleated RBC % Absolute Neutrophils Absolute Lymphocytes Absolute Monocytes Absolute Eosinophils Absolute Basophils Sodium Potassium Chloride Carbon Dioxide Anion Gap BUN Creatinine Estimated GFR/1.73 m2 Glucose Calcium Magnesium Total Bilirubin AST ALT Alkaline Phosphatase Creatine Kinase Total Protein Albumin Lipase Urine Color Urine Clarity Urine pH Ur Specific Prospect Urine Protein Urine Ketones Urine Blood Urine Nitrite Urine Bilirubin Urine Urobilinogen Ur Leukocyte Esterase Urine RBC Urine WBC Ur Epithelial Cells Urine Crystals Urine Bacteria Urine Mucus Ur Culture Indicated? Urine Glucose Ethyl Alcohol COVID-19 Source Nasal/nares SARS-CoV-2 (PCR) Negative Last Vital Signs Temp 36.6 C 12/13/20 21:58 Pulse 100 H 12/13/20 21:58 Resp 18 12/13/20 21:58 BP 143/95 H 12/13/20 21:58 Pulse Ox 97 12/13/20 21:58 COVID-19 Screening Have you, or household traveled for leisure in last 14 days?: No Had IN PERSON contact w/suspected or confirmed C-19 person: No
[2020-12-14] MEDS: Acetaminophen 325 MG TAB 650 MG PO ×3 (02:21→20:33)
[2020-12-14 07:49] LABS: Abs Immature Grans 0.01 10^3/uL (0.0-0.06); Absolute Basophil Count 0.01 10^3/uL (0.0-0.2); Absolute Eosinophil Count 0.01 10^3/uL (0.0-0.7); Absolute Lymphocyte Count 0.85 10^3/uL (1.2-3.4); Absolute Monocyte Count 0.22 10^3/uL (0.1-0.8); Absolute Neutrophil Count 1.26 10^3/uL (1.2-6.7); Basophils % 0.4; Eosinophils % 0.4; HCT 33.3 % (36.0-46.0); Immature Grans % 0.4; MCH 33.2 pg (27.0-33.0); MCV 100.6 fL (80-95); MPV 9.6 fL (8.0-11.0); Monocytes % 9.3; Neutrophils % 53.5; Nucleated RBC 0 %; Platelet Count 108 10^3/uL (130-400); RBC 3.31 10^6/uL (3.93-5.22); RDW 14.6 % (11.7-14.6); RDW-SD 54.3 fL; WBC 2.36 10^3/uL (4.4-10.8)
[2020-12-14 07:51] LABS: Prothrombin Time 10.2 sec (9.3-11.0)
[2020-12-14 07:55] LABS: Anion Gap 7.6 mmol/L (3-11); BUN 14 mg/dL (7-18); CO2 29.4 mmol/L (21.0-32.0); CREATININE 1.1 mg/dL (0.55-1.02); Calcium 9.1 mg/dL (8.5-10.1); Chloride 107 mmol/L (98-107); Estimated GFR 48.55 (mL/min/1.73m2); Glucose 93 mg/dL (74-106); Magnesium 2.2 mg/dL (1.8-2.4); Sodium 144 mmol/L (136-145)
[2020-12-14 08:00] LABS: ALT 65 U/L (14-59); AST 111 U/L (15-37); Albumin 2.9 g/dL (3.4-5.0); Alkaline Phosphatase 88 U/L (46-116); Bilirubin, Direct 0.5 mg/dL (0.0-0.2); Bilirubin, Total 1.4 mg/dL (0.2-1.0); Total Protein 5.6 g/dL (6.4-8.2)
[2020-12-14 08:02] LABS: Potassium 4.2 mmol/L (3.5-5.1)
[2020-12-14 08:40] LABS: Ammonia 10 umol/L (11-32)
[2020-12-14] MEDS: Magnesium Oxide 400 MG TAB PO ×2 (09:29→20:33)
[2020-12-14] MEDS: THIAMINE 500 MG in Normal Saline 100 ML 200 MG IVPB ×2 (09:29→15:45)
[2020-12-14] MEDS: Sucralfate 1 GM TAB PO ×4 (09:29→21:03)
[2020-12-14] MEDS: Multivitamin TAB 1 TAB PO (09:29)
[2020-12-14] MEDS: Folic Acid 1 MG TAB PO (09:29)
[2020-12-14] MEDS: Pantoprazole 40 MG TABCR PO (09:30)
[2020-12-14] MEDS: LORazepam 1 MG TAB PO/SL (09:38)
--- NOTE | 2020-12-14 11:12 | PDOC.CMIN ---
- If Service Date Differs Date of service: 12/14/20 Time of Service: 11:12 Care Management Initial Assess REASON FOR HOSPITALIZATION:: lightheadedness and fall PAST MEDICAL HISTORY/PAST SURGICAL HISTORY:: Medical History . Adjustment disorder with depressed mood. AMBER (acute kidney injury). Alcohol abuse. Alcoholic gastritis without bleeding. Alcoholic ketosis. Allergic rhinitis. Anemia (12/20/16). Back pain, chronic. Calcific tendinitis of left shoulder. CAP (community acquired pneumonia). Cataract (11/07/15). Cervical radicular pain. neck pain and DJD. [facility]. 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). pls refrain from alcohol. Chronic alcoholism. she will not stop drinking unless she checks with me, so that we can help her avert withdrawal. I do not think she is capable on her own--she would need placement to achieve required goal of 3 months of sobriety. Chronic diarrhea. Closed displaced fracture of proximal phalanx of right index finger with routine healing (06/03/17). Closed right humeral fracture. Contusion of left little finger. Corneal ulcer, right (~08/23/18). 08/23/18; [facility]. Dehydration. Depression. Diarrhea. Discharge planning issues. DVT prophylaxis. Dystrophic nail. Elev transaminase/LDH. due to alcohol. Epigastric abdominal pain. Fall as cause of accidental injury at home as place of occurrence. Genital herpes simplex. recurrent gential; suppressive Valtrex. GERD (gastroesophageal reflux disease). GI bleed (12/20/16). Head contusion. Headache. History of alcohol abuse. Humerus fracture (09/12/19). Right. Hyperlipidemia. Hypertension. Incidental lung nodule, greater than or equal to 8mm. 1cm, spiculated, stable for many years, recommend f/u in 6 mo. Macrocytosis (09/26/14). due to alcohol. Multiple rib fractures. 03/11/19 [facility]. Nausea and vomiting in adult. Non-cardiac chest pain (09/21/16). [facility] [place] NEGATIVE MP. Osteoarthritis. Osteopenia. Palliative care patient (03/21/17). Pancreatitis, alcoholic, acute. Peripheral edema. Pleural effusion on left. 03/11/19 [facility]. 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 09/15/18 [facility]. Right rib fracture. Sacral mass. Sciatica. right, epidural injuections. [facility]. Tendinitis of left rotator cuff. Tubular adenoma of colon (01/28/17). Urinary incontinence. 01/24/13 urethral suspension and sling at [facility] [place]. (bladder suspension 1991). UTI (urinary tract infection). Vision loss of right eye. 08/17/18;[facility]. Wernicke encephalopathy. Surgical History . Bladder Surgery. suspension. Colonoscopy - MAC (01/28/17). EGD - MAC (12/20/16). History of bilateral ligation of fallopian tubes. History of Surgical Procedure. a. Bladder repair. Ligation of fallopian tube. Repair bladder injury, simple PREVIOUS FUNCTIONAL STATUS/SOCIAL/FAMILY SUPPORTS:: Leticia lives alone with her dog and 4 cats in her own home in [place], [place]. She reports she has a sister and her sister is the one caring for her animals while she is in the hospital. Leticia also has a caregiver, Armida, who comes in four times a week for two hours a day. Leticia shares her son Seth is her DPOA CURRENT FUNCTIONAL STATUS:: Leticia was sitting up in a chair when CM met with her. She had her eyes closed but opened them and emngaged with CM. Leticia stated that things have been OK most of the time at home. She appeared sad and shared that her son wants to sell her house. She informed CM that he told her they have no more money. She stated that she will never give up her animals. When CM asked about discharge plans, Leticia stated that she wanted to go home. She is not interested in rehab this time. Leticia reported that she ambulates well in her house and never goes out because of Covid, although she has been vaccinated. ADVANCE DIRECTIVES:: DNR/COLST on file Has patient been provided with info about the portal/API?: Yes Did the patient sign up for the portal?: Yes (previously) CODE STATUS:: DNR/DNI INSURANCE COVERAGE / FINANCIAL ISSUES:: [facility] PPO (M[employer] Replacement) CURRENT HOME/COMMUNITY SERVICES/EQUIPMENT:: Leticia owns a walker, a cane, and a toilet seat riser. She has a caregiver four days a week for two hours per day. PRIMARY CARE PHYSICIAN:: Lavelle Galindo MD POTENTIAL DISCHARGE NEEDS:: follow up with PCP and discharge plan of care. Leticia may benedit from short term rehab as she has in the past PATIENT/FAMILY EDUCATION NEEDS:: Review of discharge instructions, medications, follow up plan, limitations,Ask Me Three TRANSPORTATION:: likely via [facility] PLAN:: Leticia will likely be discharged home with no new services. She will follow up with her community providers and plan of care. Leticia will transport via RCT coordinated by CM. CM will continue to support Leticia and her discharge planning needs.
--- NOTE | 2020-12-14 12:47 | PT.INIE ---
Date of service: 12/14/20 Time of Service: 10:20 PT Notes Visit Reasons: HYPOKALEMIA,HYPOMAGNESEMIA,INTRACT PAIN,ALCOHOL IN Inpatient Physical Therapy Evaluation Date: December 14, 2020 Referring Doctor: Laly Dumont PT Orders: PT CONSULT: Limited ability Precautions: Standard, Falls Patient Profile/Admitting Diagnosis: Leticia is a 75 year old female who is well known to our service, who has a PMHx of alcohol abuse, hypertension, hyperlipidemia, lung nodule, pelvic mass, ambulatory dysfunction with multiple falls at home, who had fallen at home (12/13/20) and could not get up for at least an hour. Patient was brought to [facility] ED by ambulance. She reported pain all over to the ED and that she had fallen because of feeling lightheaded which has been ongoing. PMHX: Adjustment disorder with depressed mood AMBER (acute kidney injury) Alcohol abuse Alcoholic gastritis without bleeding Alcoholic ketosis Allergic rhinitis Anemia (12/20/16) Back pain, chronic Calcific tendinitis of left shoulder CAP (community acquired pneumonia) Cataract (11/07/15) Cervical radicular pain neck pain and DJD [facility] 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) pls refrain from alcohol Chronic alcoholism she will not stop drinking unless she checks with me, so that we can help her avert withdrawal I do not think she is capable on her own--she would need placement to achieve required goal of 3 months of sobriety Chronic diarrhea Closed displaced fracture of proximal phalanx of right index finger with routine healing (06/03/17) Closed right humeral fracture Contusion of left little finger Corneal ulcer, right (~08/23/18) 08/23/18; [facility] Dehydration Depression Diarrhea Discharge planning issues DVT prophylaxis Dystrophic nail Elev transaminase/LDH due to alcohol Epigastric abdominal pain Fall as cause of accidental injury at home as place of occurrence Genital herpes simplex recurrent gential; suppressive Valtrex GERD (gastroesophageal reflux disease) GI bleed (12/20/16) Head contusion Headache History of alcohol abuse Humerus fracture (09/12/19) Right Hyperlipidemia Hypertension Incidental lung nodule, greater than or equal to 8mm 1cm, spiculated, stable for many years, recommend f/u in 6 mo Macrocytosis (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 Multiple rib fractures 03/11/19 [facility] Nausea and vomiting in adult Non-cardiac chest pain (09/21/16[place] [facility] [place] MP Osteoarthritis Osteopenia Palliative care patient (03/21/17) Pancreatitis, alcoholic, acute Peripheral edema Pleural effusion on left 03/11/19 [facility] Presacral mass (~09/15/18) 09/15/18 [facility] Right rib fracture Sacral mass Sciatica right, epidural injuections [facility] Tendinitis of left rotator cuff Tubular adenoma of colon (01/28/17) Urinary incontinence 01/24/13 [place] [facility] [place] UTI (urinary tract infection) 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 Bladder repair. Ligation of fallopian tube Repair bladder injury, simple Social History/Home Situation: Leticia lives in a private home in [place], [place]. She has a caregiver who comes in daily 4 days per week for 2 hours each time to assist with laundry, minor house chores, and grocery shopping. Patient is independent with ADLs using a front wheeled walker. She receives meals on wheels. She no longer drives. Equipment Owned/DME: FWW, SC, grab bars, emergency alert device Subjective: Patient is agreeable to PT consult. She states that her back is still ithcy and achy. Appears tired. Complains she hurts all over ciara on the right hand side of her face and jaw. Objective: General Observation: Telemetry, IV right upper extremity Mental Status: Alert and oriented as to person, place, time, and purpose Pain: 6/10 Jaw ROM: Right Upper Extremity: Shoulder Flexion allows up to 90 degrees. Shoulder abduction allows up to 70 degrees. Elbow flexion WFL. Wrist flexion WFL. Functional opening and closing of hand WFL. Left Upper Extremity: Shoulder Flexion allows up to 100 degrees. Shoulder abduction allows up to 90 degrees. Elbow flexion WFL. Wrist flexion WFL. Functional opening and closing of hand WFL. Right Lower Extremity: Hip flexion allows up to 20 degrees beyond 90 while seated at edge of bed. Hip abduction WFL. Knee flexion 30-90 degrees. Knee extension -30 degrees. Ankle dorsiflexion WFL. Ankle plantarflexion WFL. Left Lower Extremity: Hip flexion allows up to 20 degrees beyond 90 while seated at edge of bed. Hip abduction WFL. Knee flexion 30-90 degrees. Knee extension -30 degrees. Ankle dorsiflexion WFL. Ankle plantarflexion WFL. Strength: Right Upper Extremity: Shoulder flexors 3-/5. Shoulder abductors 3-/5. Elbow flexors 4/5. Elbow extensors 4/5. Inspector Insulation strong. Left Upper Extremity: Shoulder flexors 3-/5. Shoulder abductors 3-/5. Elbow flexors 4/5. Elbow extensors 4/5. Inspector Insulation strong. Right Lower Extremity: Hip flexors 3-/5. Hip abductors 4-/5. Knee flexors 3-/5. Knee extensors 3-/5. Ankle dorsiflexors 4-/5. Ankle plantarflexors 4-/5. Left Lower Extremity: Hip flexors 3-/5. Hip abductors 4-/5. Knee flexors 3-/5. Knee extensors 3-/5. Ankle dorsiflexors 4-/5. Ankle plantarflexors 4-/5. Bed Mobility/Transfers: Supine to sit minimal assist with HOB at 30 degrees Sit to supine minimal assist Sit to stand minimal assistx2 Stand to sit minimal assistx2 with cueing for hand placement Bed to chair minimal assistx2 Gait: Patient exhibited reciprocal gait for 5 feet requiring min A from PT and nursing. Decreased violeta. Decreased step length and height. Will require use of walker. Balance: Static Sitting: Good Dynamic Sitting: Fair Static Standing: Fair Dynamic Standing: Fair Special Tests: Mobility Limitations Standardized Measure [facility] AM-PAC 6 clicks Basic Mobility Inpatient Short Form: Raw Score: 18 CMS Score: 47% deficit Informed Consent/Education: Patient instructed in purpose of PT consult and plan of care. Assessment: Patient demonstrates generalized weakness, functional mobility prior requiring the need for front wheeled walker for all mobility ADL perform this, difficulty with walking with walking, impairment with balance, and increased fall risk resulting from current diagnoses. She will benefit from PT services to address impairments and functional limitations listed below. Patient presents with clinical signs and symptoms consistent with current/admitting diagnoses that have resulted to mobility limitations, gait instability, generalized weakness, and impairment of motor control as demonstrated by the following impairment level findings: 1. Decreased strength to B UE/LE major muscle groups 2. Impaired standing balance 3. Impaired activity tolerance 4. Headache and fatigue affecting ambulation distance Impairments are contributing to the following functional limitations: 1. Increased dependence with transfers 2. Inability to safely ambulate without assistive device and physical assistance 3. Increase completion time for mobility ADL performance 4. Increased fall risk 5. Inability to negotiate steps alone safely 6. Decreased ambulation distance Patient is assessed as a 70193 moderate complexity based on the following: History: 75-year-old female with impairment level findings, functional impairments, medical history, and [place] AM PAC deficit score of 47% Examination: Demonstrable impairment in strength, balance, and range of motion with underlying impairments and functional limitations as documented above Presentation: Evolving Decision Makin moderate complexity Goals: Goals X1 week 1. Supine-Sit independent 2. Sit-Supine independent 3. Sit-Stand independent 4. Stand-Sit independent 5. Bed-Chair independent 6. Chair-Bed independent 7. Independent gait on level surface with use of straight cane for at least 300 feet without report of pain nor dyspnea 8. Independent stair negotiation while holding onto bilateral rails for at least 5 steps without report of pain nor dyspnea 9. Good static and dynamic standing balance/tolerance DISCHARGE RECOMMENDATIONS: SNF vs. HHPT TREATMENT CODE/TIME: 07850 x 20 minutes 10:20 Thank you very much for this referral. Jessie Dukes, MPT [facility] Disclaimer: This note was created using [employer] voice recognition software. It was reviewed for major content. However, there may be multiple small discrepancies and errors due to the voice recognition aspects of the software.
--- NOTE | 2020-12-14 14:26 | PGE_ITS ---
Date of Service Date of service: 12/14/20 Time of Service: 14:27 Assessment and Plan Assessment and plan (1) Lightheadedness: Status: Acute Assessment and plan: No arrhythmias. Tele demonstrats NSR 80's to 90's. dc tele. I believe her dizziness and falls is secondary to alcohol intoxication and dehydration, not d/t Wernicke's. (2) Fall: Status: Acute Assessment and plan: Neurologically she appears to be back to her baseline. dc neuro checks. Proceed w/ P.T. evaluation. Patient has known ambulatory dysfunction particularly after she has been intoxicated. Wernicke's seems to be possible however, she has improved even after one dose of thiamine making Wernicke's less likely. I think that her falls were d/t dehydration and intoxication. Qualifiers: Encounter type: initial encounter Qualified Code(s): W19.XXXA - Unspecified fall, initial encounter (3) Dehydration: Status: Acute Assessment and plan: resolving. dc potassium supplemented iv fluids. Will give D5LR at low rate for another 24 hr until she is taking po well. (4) Transaminitis: Status: Acute Assessment and plan: CT abdomen demonstrated fatty liver w/out biliary obstruction or cholecystitis nor any SBO. I do not feel that an US of her abdomen is necessary nor will it change her treatment. Her transaminitis is already improving w/ cessation of her alcohol and giving her iv fluid hydration (5) Alcohol intoxication: Status: Acute Assessment and plan: continue high dose thiamine replacement that was started by Dr. Dumont. continue w/ MVI and folate. No need for CIWA. She really does not go into withdrawal. If she were to withdraw, I would give her low dose of phenobarbital i.e. 6 to 10 mg/kg loading dose rather than using benzodiazepines (phenobarb is more predictable, she does not have cirrhosis which would cause clearance issues w/ phenobarbital and it would avoid oversedation which has happened to her in the past when she has been medicated w/ benzodiazepines). Qualifiers: Complication of substance-induced condition: uncomplicated Qualified Code(s): F10.920 - Alcohol use, unspecified with intoxication, uncomplicated (6) Hypokalemia: Status: Resolved Assessment and plan: will keep her on low dose potassium supplement and repeat her BMP in the a.m. (7) Hypomagnesemia: Status: Acute Assessment and plan: Replete (8) Ambulatory dysfunction: Status: Acute Assessment and plan: Wernicke's could be contributing. High dose thiamine therapy. PT/OT c/s May require subacute rehab (9) Alcohol abuse: Status: Chronic Assessment and plan: As above. Thiamine/vitamins. dc CIWA. Patient does not usually withdraw from alcohol in our facility. (10) DVT prophylaxis: Status: Acute Assessment and plan: TEDS/SCDS. Abstain from chemical DVT ppx due to h/o GI bleeding (11) Discharge planning issues: Status: Acute Assessment and plan: DNR/DNI PT/OT consults Palliative care consult May require subacute rehab Subjective Subjective Interval history since last seen: Patient is a 75-year-old alcoholic well-known to this hospitalist service with repeated admissions for alcoholic hepatitis as well as dehydration and electrolyte disturbance and alcoholic gastritis. Is also had multiple admissions for alcohol withdrawal although she has never had severe withdrawal and has been managed with little benzodiazepines. Patient presented with symptoms similar to her prior hospitalizations with acute mental status change nausea and vomiting along with hypokalemia and hypomagnesemia. Patient reported been confabulating and having nystagmus and worsening tremors. Dr. Dumont, tip fixer, admitted last night and put her on high-dose thiamine for presumptive Warnicke's encephalopathy. Patient was given IV fluids and her potassium magnesium were corrected overnight. She is no longer having any nausea or vomiting and her mental status is cleared up overnight. At this point it does not appear that the patient is going through acute alcohol withdrawal. I think at this point we can discontinue CIWA scoring and discontinue any as needed Ativan. I will continue low-dose IV fluids until we are sure that she is eating and drinking adequately. We will continue the course of treatment with high-dose thiamine and we have asked physical therapy and case management to see the patient. Patient has been placed in SNF facilities in the past but always returns home and fails when she gets home. Patient is fully coherent and cognizant and not encephalopathic. She knows why she is in the hospital she knows the reason she keeps coming back to the hospital is because she continues to drink alcohol. When asked why she returns to drinking alcohol she states that she is bored and lives alone. I do think that she suffers from chronic depression and she would be better off in a permanent long-term where she could have company and social interaction and prohibited from drinking further alcohol. Exam Narrative Exam Narrative: Elderly female who appears to be older than her stated age of 75. She is alert and oriented person place time circumstance. HEENT is remarkable for droopy right eyelid as well as a right corneal scarring. She has no facial asymmetry her speech is clear and coherent. Neck is supple no JVD Lungs revealed bibasilar rales no rhonchi no wheezes. Heart regular rate and rhythm Abdomen soft nontender with normal active bowel sounds Extremities without peripheral cyanosis or edema. Neurologic exam reveals essential tremor. Because of her visual impairment she has trouble doing [id number] testing. 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 She has no visible nystagmus. Objective Last Vital Signs Temp 36.3 C L 12/14/20 11:50 Pulse 89 12/14/20 11:50 Resp 19 12/14/20 11:50 BP 141/86 H 12/14/20 11:50 Pulse Ox 97 12/14/20 11:50 Laboratory Results - last 24 hr 12/13/20 12/13/20 12/13/20 16:47 16:47 17:17 WBC 2.82 L RBC 4.17 Hgb 13.7 Hct 41.6 MCV 99.8 H MCH 32.9 MCHC 32.9 RDW 14.4 Plt Count 147 MPV 9.9 Immature Gran % 1.1 Neutrophils % 46.7 Lymphocytes % 43.6 Monocytes % 8.2 Eosinophils % 0.0 Basophils % 0.4 Nucleated RBC % 0 Absolute Neutrophils 1.32 Absolute Lymphocytes 1.23 Absolute Monocytes 0.23 Absolute Eosinophils 0.00 Absolute Basophils 0.01 PT INR Sodium 142 Potassium 2.9 L Chloride 99 Carbon Dioxide 31.0 Anion Gap 12.0 H BUN 15 Creatinine 1.2 H Estimated GFR/1.73 m2 43.91 Glucose 140 H Calcium 10.5 H Magnesium 1.4 L Total Bilirubin 1.3 H Conjugated Bilirubin AST 184 H ALT 88 H Alkaline Phosphatase 118 H Ammonia Creatine Kinase 28 Total Protein 7.6 Albumin 3.9 Lipase 67 Urine Color Urine Clarity Cloudy Urine pH 5.5 Ur Specific [place] 1.025 Urine Protein 100 H Urine Ketones 15 H Urine Blood Negative Urine Nitrite Negative Urine Bilirubin Moderate H Urine Urobilinogen 1.0 H Ur Leukocyte Esterase Trace H Urine RBC Not Applicable Urine WBC Not Applicable Ur Epithelial Cells Not Applicable Urine Crystals Many amorphous Urine Bacteria Not Applicable Urine Mucus Not Applicable Ur Culture Indicated? No Urine Glucose Negative Ethyl Alcohol 156.0 COVID-19 Source SARS-CoV-2 (PCR) 12/13/20 12/14/20 12/14/20 21:20 07:11 07:11 WBC 2.36 L RBC 3.31 L Hgb 11.0 L D Hct 33.3 L MCV 100.6 H MCH 33.2 H MCHC 33.0 RDW 14.6 Plt Count 108 L MPV 9.6 Immature Gran % 0.4 Neutrophils % 53.5 Lymphocytes % 36.0 Monocytes % 9.3 Eosinophils % 0.4 Basophils % 0.4 Nucleated RBC % 0 Absolute Neutrophils 1.26 Absolute Lymphocytes 0.85 L Absolute Monocytes 0.22 Absolute Eosinophils 0.01 Absolute Basophils 0.01 PT INR Sodium 144 Potassium 4.2 D Chloride 107 Carbon Dioxide 29.4 Anion Gap 7.6 BUN 14 Creatinine 1.1 H Estimated GFR/1.73 m2 48.55 Glucose 93 Calcium 9.1 Magnesium 2.2 Total Bilirubin Conjugated Bilirubin AST ALT Alkaline Phosphatase Ammonia Creatine Kinase Total Protein Albumin Lipase Urine Color Urine Clarity Urine pH Ur Specific [place] Urine Protein Urine Ketones Urine Blood Urine Nitrite Urine Bilirubin Urine Urobilinogen Ur Leukocyte Esterase Urine RBC Urine WBC Ur Epithelial Cells Urine Crystals Urine Bacteria Urine Mucus Ur Culture Indicated? Urine Glucose Ethyl Alcohol COVID-19 Source Nasal/nares SARS-CoV-2 (PCR) Negative 12/14/20 12/14/20 12/14/20 07:11 07:11 08:20 WBC RBC Hgb Hct MCV MCH MCHC RDW Plt Count MPV Immature Gran % Neutrophils % Lymphocytes % Monocytes % Eosinophils % Basophils % Nucleated RBC % Absolute Neutrophils Absolute Lymphocytes Absolute Monocytes Absolute Eosinophils Absolute Basophils PT 10.2 INR 1.0 Sodium Potassium Chloride Carbon Dioxide Anion Gap BUN Creatinine Estimated GFR/1.73 m2 Glucose Calcium Magnesium Total Bilirubin 1.4 H Conjugated Bilirubin 0.5 H AST 111 H ALT 65 H Alkaline Phosphatase 88 Ammonia 10 L Creatine Kinase Total Protein 5.6 L Albumin 2.9 L Lipase Urine Color Urine Clarity Urine pH Ur Specific [place] Urine Protein Urine Ketones Urine Blood Urine Nitrite Urine Bilirubin Urine Urobilinogen Ur Leukocyte Esterase Urine RBC Urine WBC Ur Epithelial Cells Urine Crystals Urine Bacteria Urine Mucus Ur Culture Indicated? Urine Glucose Ethyl Alcohol COVID-19 Source SARS-CoV-2 (PCR)
--- NOTE | 2020-12-14 20:25 | NUR.NOTE ---
Nursing Note: went into pt room to take vitals she said if i dont fix her pillows she was going to get out of her bed and fall on the floor. so i fixed her pillows.
[2020-12-14] MEDS: DEXTROSE 5%-LACTATED RINGERS 1,000 ML 85 ML IV (20:33)
[2020-12-15] MEDS: THIAMINE 500 MG in Normal Saline 100 ML 200 MG IVPB ×3 (00:30→18:04)
[2020-12-15] MEDS: hydrOXYzine PAMOATE 25 MG CAP PO (03:25)
[2020-12-15 04:00] VITALS: BP 170/96; PULSE 85; RESP 18; TEMP 36.6; O2SAT 98
[2020-12-15 07:01] LABS: Abs Immature Grans 0.01 10^3/uL (0.0-0.06); Absolute Basophil Count 0.01 10^3/uL (0.0-0.2); Absolute Lymphocyte Count 0.72 10^3/uL (1.2-3.4); Absolute Neutrophil Count 1.29 10^3/uL (1.2-6.7); Basophils % 0.4; HCT 30.9 % (36.0-46.0); HGB 10.2 g/dL (11.2-15.7); Immature Grans % 0.4; Lymphocytes % 32.3; MPV 9.5 fL (8.0-11.0); Neutrophils % 57.9; Nucleated RBC 0 %; Platelet Count 102 10^3/uL (130-400); RBC 3.09 10^6/uL (3.93-5.22); RDW 14.1 % (11.7-14.6); WBC 2.23 10^3/uL (4.4-10.8)
[2020-12-15 07:17] LABS: ALT 48 U/L (14-59); AST 56 U/L (15-37); Albumin 2.5 g/dL (3.4-5.0); Alkaline Phosphatase 80 U/L (46-116); BUN 11 mg/dL (7-18); Bilirubin, Total 1.2 mg/dL (0.2-1.0); CREATININE 1.2 mg/dL (0.55-1.02); Calcium 9.1 mg/dL (8.5-10.1); Chloride 103 mmol/L (98-107); Estimated GFR 43.91 (mL/min/1.73m2); Glucose 128 mg/dL (74-106); Potassium 3.5 mmol/L (3.5-5.1); Sodium 136 mmol/L (136-145); Total Protein 5.1 g/dL (6.4-8.2)
[2020-12-15 08:14] VITALS: BP 162/96; PULSE 87; RESP 14; TEMP 37; O2SAT 96
[2020-12-15] MEDS: Potassium Chloride Liquid 20 MEQ PKT PO (08:19)
[2020-12-15] MEDS: Pantoprazole 40 MG TABCR PO (08:19)
[2020-12-15] MEDS: Folic Acid 1 MG TAB PO (08:19)
[2020-12-15] MEDS: Acetaminophen 325 MG TAB 650 MG PO ×3 (08:19→16:16)
[2020-12-15] MEDS: Magnesium Oxide 400 MG TAB PO ×2 (08:19→20:10)
[2020-12-15] MEDS: Multivitamin TAB 1 TAB PO (08:19)
[2020-12-15] MEDS: Normal Saline Flush 10 ML SYR IVP ×2 (08:20→18:05)
[2020-12-15] MEDS: Sucralfate 1 GM TAB PO ×4 (08:20→22:20)
--- NOTE | 2020-12-15 09:29 | OTIE_ITS ---
Occupational Therapy Notes Inpatient Occupational Therapy Evaluation Date:12/15/20 Referring Doctor: Laly Dumont MD OT Orders: Eval and Treat- Non Urgent Precautions: Fall, Standard PATIENT PROFILE/ADMITTING DIAGNOSIS: Pt is a 75 year old female who was admitted through the ER with a significant PMHx of alcohol abuse, hypertension, hyperlipidemia, lung nodule, pelvic mass, ambulatory dysfunction with multiple falls at home, who had fallen at home (12/13/20) and could not get up for at least an hour. Past Medical History: Alcohol abuse (Chronic) Alcoholic ketosis (Resolved) Allergic rhinitis (Chronic) Anemia (Chronic 12/20/16) Back pain, chronic (Chronic) Cataract (Chronic 11/07/15) Cervical radicular pain (Chronic) Chronic alcoholic gastritis (Chronic 10/12/17) Depression (Chronic) Elev transaminase/LDH (Chronic) Falling (Chronic) Genital herpes simplex (Chronic) GERD (gastroesophageal reflux disease) (Chronic) GI bleed (Chronic 12/20/16) Headache (Chronic) Hyperlipidemia (Chronic) Hypertension (Chronic) Macrocytosis (Chronic 09/26/14) Multiple rib fractures (Acute) Non-cardiac chest pain (Chronic 09/21/16) Osteoarthritis (Chronic) Osteopenia (Chronic) 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) Pleural effusion on left (Acute) Right rib fracture (Resolved) Sciatica (Chronic) Tubular adenoma of colon (Chronic 01/28/17) Urinary incontinence (Chronic) Wernicke encephalopathy (Chronic) Surgical History Bladder Surgery Colonoscopy - MAC (01/28/17) EGD - MAC (12/20/16) Ligation of fallopian tube Repair bladder injury, simple Social History/Home Situation: She reports that she lives in a private home and has a caregiver who comes into the home 2 hours per day. She reports that her caregiver (A) with laundry, grocery shopping and home care tasks. Pt states that she takes a shower 2-3x per week. She states that she has a shower seat and what she considers a regular shower. She has a regular toilet and grab bars near her shower but they are removable. She states that otherwise she feels she is (I) and that she lives with her dog and 3 cats. Equipment owned/DME: grab bars, shower seat, FWW SUBJECTIVE: Pt was sitting in bed when OT arrived. She was agreeable to OT session and reports that she is going home today. OBJECTIVE: General Observation:Life line, pleasant and IV in (R) UE connected at time of consult. Mental Status: A&Ox3 Pain: c/o pain all over ROM: RUE AROM limited to 60*AROM due to pain from fall. L UE AROM WFL with limited shoulder flexion to 110* STRENGTH: RUE Shoulder flexion 3-/5, bicep 3/5, tricep 3-/5, scaffold worker is weak and symmetrical LUE Shoulder flexion 3-/5, bicep 3/5, tricep 3-/5, scaffold worker is weak and symmetrical FUNCTIONAL MOBILITY/ADLS: DRESSING Dressing- sitting on side of bed pt was min (A) with don and doffing hospital gown, (I) don and doffing (B) socks with min vc. Bathing- Sitting on side of the bed with max (A) Set up/clean up,(I) face, (B) UE, abdomen, (B) LE to knees, denies lower legs and states that her head is hurting to bad. Grooming- Sitting in bed (I) with brushing hair TOILETING-NT Eating- sitting in bed (I) BALANCE: Static sitting Normal Dynamic Sitting Good SPECIAL TESTS: Daily Activity Limitations Standardized Measure [facility] AM PAC ?6 clicks? Daily Activity Inpatient Short Form: Raw score: 20 Standardized score: 42.03 CMS score: 38.32% INFORMED CONSENT/EDUCATION: Pt instructed in purpose of OT Consult and plan of care. ASSESSMENT: Patient is a 75-year-old female referred to occupational therapy services with diagnosis of alcohol abuse, hypertension, hyperlipidemia, lung nodule, pelvic mass, ambulatory dysfunction with multiple falls at home, who had fallen at home (12/13/20) and could not get up for at least an hour. Patient presents with clinical signs and symptoms consistent with dx, as demonstrated by the following impairment level findings/functional limitations: Decreased functional activity tolerance, decreased (I) in her ADL/IADL routines, pt has c/o headache and pain in her (R) UE which she doesn't know why it is happening. Patient is assessed as a Moderate 13931 complexity based on the following: History: See Above Examination: See functional limitations as noted above Presentation: Evolving Decision Making: AMPAC score 20 GOALS 1. Transfers- (S), FWW 2. Dressing sitting on side of bed (I) with UE don and doffing shirt, (I) with don and doffing pants 3. Bathing standing at sink (I) UE/LE 4. Toileting on toilet (I) 5. Grooming- standing at sink pt will be able to stand at sink (I) with brushing teeth PLAN OF CARE/TREATMENT PLAN: 1x/day, 5 days/ week x 1week Initiate Occupational Therapy Services for bathing, dressing, grooming, toileting, eating, transfer training. DISCHARGE RECOMMENDATIONS Home with HH services vs. SNF TREATMENT TIME/MINUTES/CODES 42897, 10 minutes (08:45) L[facility]E [facility]
[2020-12-15 15:06] VITALS: BP 148/92; PULSE 89; RESP 16; TEMP 36.8; O2SAT 97
--- NOTE | 2020-12-15 15:57 | PT.INTREAT ---
Date of service: 12/15/20 Time of Service: 11:45 PT Notes Visit Reasons: HYPOKALEMIA,HYPOMAGNESEMIA,INTRACT PAIN,ALCOHOL IN Inpatient Physical Therapy Treatment Note [facility] Date: 12/15/2020 PRECAUTIONS: Fall SUBJECTIVE: Leticia reports feelings of nausea and that she has a headache. She is eventually coaxed into participating in PT and sitting up in the chair for lunch. OBJECTIVE: Patient refused afternoon PT session, due to significant headache and arm pain. Complaints relayed to nursing staff. PAIN: Patient c/o headache BED MOBILITY/TRANSFERS Supine-sit: I Sit-stand: CGA Stand-sit: SBA GAIT Assistive Device: FWW Weight bearing: Full Assist: CGA Distance: 20' x2 Deviation: C/o increased nausea TOILETING: Patient toileted with assist. ASSESSMENT: Patient tolerated session with c/o increasing nausea with gait training. She was able to tolerate a progression in gait distance with use of FWW and CGA. PLAN: Continue with gait and transfer training and add global strengthening for improved mobility and activity tolerance. TREATMENT CODE/TIME: 15 minutes; 93629 x1 (11:45)
[2020-12-15] MEDS: traMADol 50 MG TAB PO (18:04)
--- NOTE | 2020-12-15 18:11 | W.PM.PROGNOT ---
Date of Service Date of service: 12/15/20 Time of Service: 18:11 Assessment and Plan Assessment and plan (1) Shoulder pain, right: Status: Acute Assessment and plan: check xray of her right shoulder and humerus r/o fracture however, I think that she has rotator cuff injury but the distal clavicle seems on exam. Will xray this. Treat voltaren gel. Qualifiers: Chronicity: chronic Qualified Code(s): M25.511 - Pain in right shoulder; G89.29 - Other chronic pain (2) Lightheadedness: Status: Resolved Assessment and plan: She had no arrhythmias and her tele was dc yesterday. I believe her dizziness and falls is secondary to alcohol intoxication and dehydration, not d/t Wernicke's. We can dc her high dose thiamine and treat her w/ conventional doses. (3) Fall: Status: Acute Assessment and plan: Neurologically she appears to be back to her baseline. dc neuro checks. Proceed w/ P.T. evaluation. Patient has known ambulatory dysfunction particularly after she has been intoxicated. Wernicke's seems to be possible however, she has improved even after one dose of thiamine making Wernicke's less likely. I think that her falls were d/t dehydration and intoxication. Qualifiers: Encounter type: initial encounter Qualified Code(s): W19.XXXA - Unspecified fall, initial encounter (4) Dehydration: Status: Resolved Assessment and plan: resolved. BUN 11, creatinine 1.2. IV fluids have been stopped. (5) Transaminitis: Status: Resolved Assessment and plan: CT abdomen demonstrated fatty liver w/out biliary obstruction or cholecystitis nor any SBO. Transaminitis has resolved. (6) Alcohol intoxication: Status: Resolved Assessment and plan: dc high dose thiamine. treat w/ conventional dose of thiamine, folic acid and MVI. patient needs to abstain from alcohol but seems to not be able to follow through and is unable to care for herself. Qualifiers: Complication of substance-induced condition: uncomplicated Qualified Code(s): F10.920 - Alcohol use, unspecified with intoxication, uncomplicated (7) Ambulatory dysfunction: Status: Acute Assessment and plan: cont. P.T. while here. consider outpatient P.T. if she is willing. (8) Alcohol abuse: Status: Chronic Assessment and plan: As above. Thiamine/vitamins. dc CIWA. Patient does not usually withdraw from alcohol in our facility. (9) DVT prophylaxis: Status: Acute Assessment and plan: TEDS/SCDS. Abstain from chemical DVT ppx due to h/o GI bleeding (10) Discharge planning issues: Status: Acute Assessment and plan: DNR/DNI PT/OT consults Palliative care consult May require subacute rehab Subjective Subjective Interval history since last seen: Leticia complaining of right shoulder pain. She has had frequent falls d/t alcoholism. She had xrays done of her left shoulder which demonstrate old healed left rib fractures and unhealed fracture of her left distal clavicle. I told her that I would order an xray of her right shoulder. She seems to have pain w/ abduction of the shoulder and is unable to raise this over her head. She has been eating today although poorly; some wretching but no actual emesis. She continues to receive iv thiamine along w/ oral MVI and folic acid. She is back on her protonix and carafate for her alcoholic gastritis/esophagitis. I am going to restart some of her home meds including her Celebrex and her Effexor and her amlodipine. Exam Narrative Exam Narrative: Depressed appearing elderly female lying in bed in the dark. She is alert and oriented x 3; complaining of hurting all over. Right shoulder does not appear swollen; but is tender w/ ROM testing especially w/ abduction or external rotation. Lungs: clear Heart: RRR Abdomen: soft, mild epigastric tenderness, normal bowel sounds. No guarding or rebound tenderness. Objective Last Vital Signs Temp 36.8 C 12/15/20 15:06 Pulse 89 12/15/20 15:06 Resp 16 12/15/20 15:06 BP 148/92 H 12/15/20 15:06 Pulse Ox 97 12/15/20 15:06 Laboratory Results - last 24 hr 12/15/20 12/15/20 06:40 06:40 WBC 2.23 L RBC 3.09 L Hgb 10.2 L Hct 30.9 L MCV 100.0 H MCH 33.0 MCHC 33.0 RDW 14.1 Plt Count 102 L MPV 9.5 Immature Gran % 0.4 Neutrophils % 57.9 Lymphocytes % 32.3 Monocytes % 9.0 Eosinophils % 0.0 Basophils % 0.4 Nucleated RBC % 0 Absolute Neutrophils 1.29 Absolute Lymphocytes 0.72 L Absolute Monocytes 0.20 Absolute Eosinophils 0.00 Absolute Basophils 0.01 Sodium 136 Potassium 3.5 Chloride 103 Carbon Dioxide 27.0 Anion Gap 6.0 BUN 11 Creatinine 1.2 H Estimated GFR/1.73 m2 43.91 Glucose 128 H Calcium 9.1 Total Bilirubin 1.2 H AST 56 H ALT 48 Alkaline Phosphatase 80 Total Protein 5.1 L Albumin 2.5 L
--- NOTE | 2020-12-15 19:28 | PDOC.CMPRO ---
- If Service Date Differs Date of service: 12/15/20 Time of Service: 19:28 Care Management Progress Note S/O: Leticia was lying in bed when CM met with her. She reported that she has been very nauseas all morning, and didn't sleep well last night. She does not feel ready for discharge at this time. Per report, she will have an xray on her right shoulder to r/o a fracture. She is at her baseline mentation at this time. She will continue to work with PT while admitted. CM will continue to follow. A: Leticia is a 75 year old female admitted to [facility] on 12/13/20 with Hypokalemia, Hypomagnesemia, intractable pain. P: Leticia will likely be discharged home with no new services. She will follow up with her community providers and plan of care. Leticia will transport via [facility] coordinated by [facility]. CM will continue to support Leticia and her discharge planning needs.
[2020-12-15 20:00] VITALS: BP 156/91; PULSE 93; RESP 18; TEMP 36.6; O2SAT 98
[2020-12-15] MEDS: Metoprolol 50 MG TAB 25 MG PO (20:10)
[2020-12-15] MEDS: Diclofenac 1% Gel 100 GM TUBE TP (20:10)
[2020-12-15] MEDS: Zolpidem 5 MG TAB PO (22:20)
[2020-12-16 01:49] VITALS: BP 170/99; PULSE 75; RESP 16; TEMP 36.6; O2SAT 96
[2020-12-16] MEDS: THIAMINE 500 MG in Normal Saline 100 ML 200 MG IVPB ×2 (01:57→10:15)
[2020-12-16 06:59] LABS: Abs Immature Grans 0.01 10^3/uL (0.0-0.06); Absolute Basophil Count 0.02 10^3/uL (0.0-0.2); Absolute Lymphocyte Count 1.22 10^3/uL (1.2-3.4); Absolute Monocyte Count 0.27 10^3/uL (0.1-0.8); Absolute Neutrophil Count 1.93 10^3/uL (1.2-6.7); Basophils % 0.6; HCT 36.7 % (36.0-46.0); Immature Grans % 0.3; Lymphocytes % 35.4; MCH 32.3 pg (27.0-33.0); MCHC 32.7 % (32.0-36.0); MCV 98.9 fL (80-95); MPV 10.7 fL (8.0-11.0); Monocytes % 7.8; Neutrophils % 55.9; Nucleated RBC 0 %; RBC 3.71 10^6/uL (3.93-5.22); RDW 13.9 % (11.7-14.6); RDW-SD 50.8 fL; WBC 3.45 10^3/uL (4.4-10.8)
[2020-12-16 07:24] LABS: ALT 57 U/L (14-59); AST 54 U/L (15-37); Albumin 3.1 g/dL (3.4-5.0); Alkaline Phosphatase 102 U/L (46-116); Anion Gap 8.5 mmol/L (3-11); BUN 10 mg/dL (7-18); Bilirubin, Total 1.2 mg/dL (0.2-1.0); CO2 25.5 mmol/L (21.0-32.0); CREATININE 1.3 mg/dL (0.55-1.02); Calcium 9.7 mg/dL (8.5-10.1); Chloride 101 mmol/L (98-107); Estimated GFR 40.04 (mL/min/1.73m2); Glucose 108 mg/dL (74-106); Magnesium 1.6 mg/dL (1.8-2.4); Potassium 3.7 mmol/L (3.5-5.1); Sodium 135 mmol/L (136-145); Total Protein 6.3 g/dL (6.4-8.2)
[2020-12-16 07:25] LABS: Platelet Count 143 10^3/uL (130-400)
[2020-12-16 07:28] LABS: Diff Comment Diff Reviewed; RBC Morphology Normal
[2020-12-16 07:30] VITALS: BP 173/105; PULSE 88; RESP 18; TEMP 36.2; O2SAT 96
[2020-12-16 07:35] VITALS: BP 170/95
--- NOTE | 2020-12-16 08:28 | OT.INTREAT ---
Date of service: 12/16/20 Time of Service: 07:50 Occupational Therapy Notes Occupational Therapy Inpatient Treatment Note Date: 12/16/20 PRECAUTIONS: Fall, standard, DNR/DNI SUBJECTIVE: Pt was lying in bed when OT arrived. She reports that she is going home today and is not sure how she is feeling yet. OBJECTIVE: PAIN:no c/o pain FUNCTIONAL MOBILITY Rolling L/R: (I) Supine-sit: (I) Sit-supine: (I) BATHING: sitting in bed with max (A) set up/clean up Upper Body: (I) Lower Body: (I) DRESSING: Sitting in bed Upper Extremity: min (A) [facility] gown Lower Extremity: Pt denies GROOMING: (I) brushing hair ASSESSMENT/PLAN: Pt was receptive to performance of her ADLs, she is able to perform them for the most part (I). She was limited at time and reported chest pain which OT reported to nursing. Pt states that she is always having aches and pains. Functionally she is demonstrating near her baseline level of function. TREATMENT CODES/TIME: [id number], 20 minutes (07:50) Yee Elizalde, OTR/L [facility]
--- NOTE | 2020-12-16 09:06 | DI.RAD_ITS ---
EXAM: XR SHOULDER RT COMPLETE 2+V CLINICAL HISTORY: s/p fall; right shoulder pain TECHNIQUE: COMPARISON: CT CT CHEST/ABD/PEL W from 11/08/2020 CR,XR XR HUMERUS RT from 11/08/2020 CR,XR XR SHOULDER LT COMPLETE 2+V from 12/13/[address] CHEST/ABD/PEL W from 12/13/2020 FINDINGS: Five views were obtained. There is an old humeral head fracture which appears healed. There is defo rmity of the distal clavicle unchanged from prior examinations presumably representing old fracture a nd/or AC separation. There are multiple healed right rib fractures. There is no evidence of acute f racture or dislocation. IMPRESSION: RADIATION DOSE DELIVERED: Total DLP
[2020-12-16] MEDS: Potassium Chloride Liquid 20 MEQ PKT PO (09:55)
[2020-12-16] MEDS: Pantoprazole 40 MG TABCR PO (09:55)
[2020-12-16] MEDS: Folic Acid 1 MG TAB PO (09:55)
[2020-12-16] MEDS: Magnesium Oxide 400 MG TAB PO (09:55)
[2020-12-16] MEDS: Multivitamin TAB 1 TAB PO (09:56)
[2020-12-16] MEDS: Venlafaxine 37.5 MG CAPCR PO (09:56)
[2020-12-16] MEDS: Sucralfate 1 GM TAB PO (09:56)
[2020-12-16] MEDS: Venlafaxine 150 MG CAPCR PO (09:56)
[2020-12-16] MEDS: traMADol 50 MG TAB PO (09:57)
[2020-12-16] MEDS: amLODIPine 5 MG TAB PO (09:57)
[2020-12-16] MEDS: Metoprolol 50 MG TAB 25 MG PO (09:58)
[2020-12-16] MEDS: Diclofenac 1% Gel 100 GM TUBE TP (10:15)
--- NOTE | 2020-12-16 11:36 | W.NUTRFU ---
Date of service: 12/16/20 Time of Service: 11:36 Nutritional Follow up NOTE: 75 year old female readmitted s/p fall with long hx of alcoholism. BMI has been stable and wnl. Following regular meal plan with varied intake. Supplemented with MVI, thiamine and folic acid. Does not appear at nutritional risk at this time. Will continue to follow. Time Spent in Nutritional Counseling and Treatment: 0
--- NOTE | 2020-12-16 13:55 | PT.INTREAT ---
Date of service: 12/16/20 Time of Service: 11:40 PT Notes Visit Reasons: HYPOKALEMIA,HYPOMAGNESEMIA,INTRACT PAIN,ALCOHOL IN Inpatient Physical Therapy Treatment Note [facility] Date: 12/16/2020 PRECAUTIONS: Fall SUBJECTIVE: Leticia reports continued feelings of nausea and that she has a headache. She is eventually coaxed into participating in PT. OBJECTIVE: Patient refused afternoon PT session, due to significant headache and nausea. Complaints relayed to nursing staff. PAIN: Patient c/o headache BED MOBILITY/TRANSFERS Sit-supine: S Sit-stand: SBA Stand-sit: SBA GAIT Assistive Device: FWW Weight bearing: Full Assist: SBA Distance: 20' + 80' Deviation: C/o increased nausea TOILETING: Patient toileted with assist. ASSESSMENT: Patient tolerated session with c/o increasing nausea with gait training. She was able to tolerate a progression in gait distance with use of FWW and SBA. PLAN: Continue with gait and transfer training as well as global strengthening for improved mobility and activity tolerance via PT upon discharge. TREATMENT CODE/TIME: 15 minutes; [id number] x1 (11:40)
--- NOTE | 2020-12-16 14:04 | DSE_ITS ---
Date of service: 12/16/20 Time of Service: 14:06 DS: Diagnosis Discharge Diagnosis (1) Shoulder pain, right: Status: Chronic Asessment and Plan: patient had xray of right shoulder which showed not acute fracture. patient has Celebrex at home which she can resume. PCP could consider referral to pain management if patient is willing to go. (2) Lightheadedness: Status: Resolved (3) Fall: Status: Resolved (4) Dehydration: Status: Resolved (5) Transaminitis: Status: Resolved Asessment and Plan: probably combination of fatty liver and dehydration. transaminitis quickly resolved therefore probably not alcoholic hepatitis. (6) Alcohol intoxication: Status: Resolved (7) Ambulatory dysfunction: Status: Chronic Asessment and Plan: patient could benefit from either SNF or home PT however d/t patient non-compliance, and alcoholic recidivism, no agencies want to go out to her house and no SNF is willing to accept her. (8) Alcohol abuse: Status: Chronic (9) Discharge planning issues: Status: Resolved Asessment and Plan: dc home to follow up w/ PCP. Discharge Plan Disposition Patient Disposition: HOME Condition: Improving Discharge Details Reason For Visit: HYPOKALEMIA,HYPOMAGNESEMIA,INTRACT PAIN,ALCOHOL IN Admit Date/Time: 12/13/20 20:32 Admit Provider: Laly Dumont Attending Provider: Laly Dumont Primary Care Provider: Lavelle Galindo Hospital Course Hospital Course: Patient is a 75-year-old female with a known history of chronic alcoholism complicated by alcoholic hepatitis and alcoholic gastritis and esophagitis who frequently presents the hospital with electrolyte abnormalities after being intoxicated and vomiting although she usually does not go into alcohol withdrawal. She has had a history of frequent falls with multiple rib fractures and clavicular fractures and humerus fracture. She now presents to the hospital on December 13, 2020 with complaints of lightheadedness and reportedly had another fall while walking to the kitchen. She landed on her left side complains significant left arm pain. She reportedly did not lose consciousness. Evaluation in the ER included CT scan of the head and cervical spine that showed no acute abnormality. Likewise CT of the chest abdomen pelvis showed no trauma. Patient was found to be hypokalemic (2.9) and hypomagnesemic (1.4) and w/ a transaminitis (NEC236, ALT 88, alk phosph 118) and hyperbilirubinemia (1.3), normal lipase. CBC showed no anemia but mild leukopenia (WBC 2800), SARS-CoV-2 [employer]ACH[employer] swab was negtive. R. shoulder xray showed degenerative changes of the glenohumeral joint and AC joint w/ previously noted ununitied fracture of the distal clavicle. Tox screen demonstrated her to be intoxicated w/ blood alcohol level of 156. Cait was admitted to med/surg floor and monitored on telemetry and put on high dose thiamine, folic acid, MVI and iv fluids while her potassium and magnesium were repleted. She had no arrhythmias to explain her falls. After she sobered up her encephalopathy cleared. She continued to complain of pain all over, but especially her right shoulder (opposite to what she told the ER). Subsequent xray was taken of her right shoulder and no acute fracture was seen. She has a healed right humerus fracture and a non-healed distal clavicle separation. P.T. and O.T. were consulted. See their notes for details. At the time of discharge, patient was able to ambulate 80 feet w use of FWW. They recommend follow up home health and P.T. however, from prior experiences patient has refused home health services and even when provided she has fired them. Therefore, if patient wants further home health, she should work w/ her PCP to obtain them. Patient understands that her multiple medical problems are directly related to her refusal to quit drinking alcohol (i.e. unsteady gait, frequent falls, dehydration, electrolyte disturbances). Until she is prepared to remain abstinent and follow up w/ outpatient treatment for her alcholism, she will continue to fail and will likely end up being re-admitted to the hospital for the same problems. She has been referred to SNF in the past but d/t her leaving [facility] and refusing treatment/services at these SNF facilities, no SNF wants to accept her. Home Meds and New Rx's Prescriptions: Continued Xiidra 5 % dropperette 1 drp ophthalmic (eye) BID RF: 0 acamprosate 333 mg tablet,delayed release (DR/EC) 333 mg PO TID Qty: 90 RF: 2 magnesium oxide 400 mg magnesium capsule 400 mg PO BID Qty: 180 RF: 3 celecoxib [Celebrex] 100 mg capsule 100 mg PO BID Qty: 60 RF: 2 cholestyramine (with sugar) 4 gram powder 1 pwd PO BID Qty: 378 RF: 0 Ensure Active High Protein Liquid 414 ml PO DAILY Qty: 39965 RF: 11 dicyclomine 10 mg capsule 10 mg PO QID PRN (Reason: belly pain) Qty: 40 RF: 0 sucralfate 1 gram tablet 1 g PO AC & HS Qty: 120 RF: 5 ipratropium-albuterol 0.5 mg-3 mg(2.5 mg base)/3 mL solution for nebulization 3 ml IH QID PRN (Reason: shortness of breath) Qty: 90 RF: 3 fluticasone propionate 50 mcg/actuation spray,suspension 1 spray NS daily prn Qty: 9.9 RF: 2 gabapentin 300 mg capsule 300 mg PO BID Qty: 90 RF: 5 metoprolol tartrate 50 mg tablet 50 mg PO BID Qty: 180 RF: 3 multivitamin [Multiple Vitamins] Tablet 1 tab PO DAILY Qty: 90 RF: 3 pantoprazole 40 mg tablet,delayed release (DR/EC) 40 mg PO DAILY Qty: 90 RF: 3 potassium chloride [Klor-Con M10] 10 mEq tablet,ER particles/crystals 10 meq PO DAILY Qty: 90 RF: 3 venlafaxine 37.5 mg capsule,extended release 24hr 37.5 mg PO DAILY Qty: 30 RF: 11 venlafaxine 150 mg capsule,extended release 24hr 150 mg PO DAILY Qty: 30 RF: 11 thiamine HCl (vitamin B1) 100 mg tablet 100 mg PO DAILY Qty: 90 RF: 3 folic acid 1 mg tablet 1 mg PO DAILY Qty: 90 RF: 3 doxepin 3 mg tablet 3 mg PO BID PRN (Reason: itch) Qty: 30 RF: 0 hydroxyzine HCl 25 mg tablet 25 mg PO TID PRN (Reason: itching) Qty: 30 RF: 2 Refresh Plus 0.5 % Dropperette 1 drp OU Q4H WHILE AWAKE Qty: 30 RF: 0 diphenhydramine HCl 25 mg Capsule 25 mg PO Q4H PRN PRNQty: 20 RF: 0 Restasis 0.05 % Dropperette 0.4 ml OU BID Qty: 10 RF: 0 hydrocortisone 1 % Cream 0 g topical TID Qty: 1 RF: 2 Eucerin Cream 0 g topical TID Qty: 1 RF: 1 Bio-K plus 50 billion cell Capsule,Delayed Release(Dr/Ec) 1 cap PO DAILY Qty: 60 RF: 0 sennosides [Senokot] 8.6 mg tablet 8.6 mg PO PRN PRNRF: 0 naltrexone 50 mg tablet 50 mg PO DAILY RF: 0 amlodipine 5 mg tablet 5 mg PO DAILY RF: 0 Discontinued amlodipine 10 mg tablet 10 mg PO DAILY Qty: 90 RF: 3 hydrochlorothiazide 12.5 mg tablet 12.5 mg PO DAILY Qty: 90 RF: 3 ascorbic acid (vitamin C) [Vitamin C] 500 mg Tablet 500 mg PO BID Qty: 30 RF: 0 chlordiazepoxide HCl 25 mg capsule 25 mg PO Q12H Qty: 7 RF: 0 Discharge Instructions Instructions: Alcohol Intoxication (DC), Alcohol Dependence (DC) Stand Alone Forms: Nursing Discharge Form Referrals: Lavelle Galindo [Primary Care Provider] - 12/23/20 4:00 pm (will be a home and might be later then 4pm, will arrive after he is done seeig all his patients for that day.) Activity:: Activity as Tolerated Equipment/Supplies:: No Equipment Needed Diet:: Normal Diet Discharge Orders Discharge Orders: Discharge Order (Routine); Ordered 12/16/20 Ordered By: Gwyn Blake DS: Summary Time Spent with Patient providing and/or coordinating discharge services: Less than 30 minutes Status at Discharge Functional status at discharge: uses cane/walker Overall status at discharge: patient is back to baseline Mental Status: mental status grossly normal Speech and Movement: speech and movement normal Mood: congruent mood Affect: normal affect Exam Psych Mental Status: mental status grossly normal Speech and Movement: speech and movement normal Mood: congruent mood Affect: normal affect DS: Data Vitals/I&O Vitals and I&O: Vital Signs Temperature 36.2 C L 12/16/20 07:30 Temperature Source Tympanic 12/16/20 07:30 Pulse 88 12/16/20 07:30 Pulse Rhythm Regular 12/16/20 01:30 Respiratory Rate 18 12/16/20 07:30 Respiratory Effort Non-Labored 12/16/20 01:30 Respiratory Depth Normal 12/16/20 01:30 Respiratory Pattern Normal 12/16/20 01:30 Blood Pressure 170/95 H 12/16/20 07:35 Blood Pressure Mean 74 12/13/20 17:00 Blood Pressure Position Supine 12/13/20 15:54 Pulse Oximetry 96 12/16/20 07:30 Oxygen Delivery Method Room Air 12/16/20 07:30 Oxygen Flow Rate 0 12/16/20 07:30 Pain Level 8 12/16/20 09:57 Comment 12/13/20 21:58 Intake & Output 12/15/20 12/16/20 12/16/20 23:59 11:59 23:59 Intake Total 1710 / 2535 355 / 355 Output Total 100 / 100 Balance 1710 / 2535 355 / 255 -100 / 255 Intake: IV 1210 / 1315 155 / 155 Oral 500 / 1220 200 / 200 Output: Urine 100 / 100 Other: Urine Color Yellow Yellow Yellow Urine Appearance Clear Clear Clear Urine Odor Normal Normal Comment patient voided directly into the toilet, no measuring hat, also incontinent of large amount of urine. Stool Size Moderate Small Stool Characteristics Soft Soft Formed Brown Voiding Methods Toilet Toilet Toilet Incontinent Data Completed and Pending Labs on day of discharge: Labs from last 24 hours 12/16/20 12/16/20 06:30 06:30 WBC 3.45 L D RBC 3.71 L Hgb 12.0 Hct 36.7 MCV 98.9 H MCH 32.3 MCHC 32.7 RDW 13.9 Plt Count 143 MPV 10.7 Immature Gran % 0.3 Neutrophils % 55.9 Lymphocytes % 35.4 Monocytes % 7.8 Eosinophils % 0.0 Basophils % 0.6 Nucleated RBC % 0 Absolute Neutrophils 1.93 Absolute Lymphocytes 1.22 Absolute Monocytes 0.27 Absolute Eosinophils 0.00 Absolute Basophils 0.02 RBC Morphology Normal Sodium 135 L Potassium 3.7 Chloride 101 Carbon Dioxide 25.5 Anion Gap 8.5 BUN 10 Creatinine 1.3 H Estimated GFR/1.73 m2 40.04 Glucose 108 H Calcium 9.7 Magnesium 1.6 L Total Bilirubin 1.2 H AST 54 H ALT 57 Alkaline Phosphatase 102 Total Protein 6.3 L Albumin 3.1 L [facility] Medical History Adjustment disorder with depressed mood AMBER (acute kidney injury) Alcohol abuse Alcoholic gastritis without bleeding Alcoholic ketosis Allergic rhinitis Anemia (12/20/16) Back pain, chronic Calcific tendinitis of left shoulder CAP (community acquired pneumonia) Cataract (11/07/15) Cervical radicular pain neck pain and DJD [facility] 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) pls refrain from alcohol Chronic alcoholism she will not stop drinking unless she checks with me, so that we can help her avert withdrawal I do not think she is capable on her own--she would need placement to achieve required goal of 3 months of sobriety Chronic diarrhea Closed displaced fracture of proximal phalanx of right index finger with routine healing (06/03/17) Closed right humeral fracture Contusion of left little finger Corneal ulcer, right (~08/23/18) 08/23/18; [facility] Dehydration Depression Diarrhea Discharge planning issues DVT prophylaxis Dystrophic nail Elev transaminase/LDH due to alcohol Epigastric abdominal pain Fall as cause of accidental injury at home as place of occurrence Genital herpes simplex recurrent gential; suppressive Valtrex GERD (gastroesophageal reflux disease) GI bleed (12/20/16) Head contusion Headache History of alcohol abuse Humerus fracture (09/12/19) Right Hyperlipidemia Hypertension Incidental lung nodule, greater than or equal to 8mm 1cm, spiculated, stable for many years, recommend f/u in 6 mo Macrocytosis (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 Multiple rib fractures 03/11/19 [facility] Nausea and vomiting in adult Non-cardiac chest pain (09/21/16) [facility] 09/21/16 NEGATIVE MP Osteoarthritis Osteopenia Palliative care patient (03/21/17) Pancreatitis, alcoholic, acute Peripheral edema Pleural effusion on left 03/11/19 [facility] Presacral mass (~09/15/18) 09/15/18 [facility] Right rib fracture Sacral mass Sciatica right, epidural injuections [facility] Tendinitis of left rotator cuff Tubular adenoma of colon (01/28/17) Urinary incontinence 01/24/13 urethral suspension and sling at [facility] (bladder suspension 1991) UTI (urinary tract infection) 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 Bladder repair. Ligation of fallopian tube Repair bladder injury, simple Family History Mother No problems noted. Father , DROWNED at age 50. No problems noted. Sister Personal history of malignant neoplasm MELANOMA Sister No problems noted. Grandfather Personal history of malignant neoplasm STOMACH Grandfather Personal history of malignant neoplasm PROSTATE Grandmother Heart disease [place] Acute ill-defined cerebrovascular disease Grandmother Personal history of malignant neoplasm UTERINE Aunt , [place] Heart disease [place] Aunt , [place] Heart disease Brother No problems noted. Social History Smoking/Tobacco Use Status: Former Tobacco Use Quit Date: 08/05/20 Smoking risk assessment performed?: Yes Alcohol Intake: current Alcohol Intake frequency: 3 or more drinks per day Alcohol type: hard liquor Drug use: Never Substance use type: does not use Details: last ETOH yesterday afternoon Current gender identity: female Do you feel safe at home: Yes Do you feel safe in your relationship?: Yes
--- NOTE | 2020-12-16 17:58 | PDOC.CMDIS ---
- If Service Date Differs Date of service: 12/16/20 Time of Service: 17:58 LACE Index Scoring Tool - Questions: Length of Stay (in days): 3 Acuity (Admit via E.D.?): Yes E.D. Visits: 22 - Answers: Total Score: 10 Risk of Readmission: High Risk Care Management Discharge Reason for Hospitalization: lightheadedness and fall Discharge Plan: Leticia returned home today with a resumption of HH services. CM informed [facility] of her discharge today. She was transported home via [facility] private vehicle, coordinated by [facility]. She will follow up with her PCP and discharge plan of care. Patient/Family Education Needs: Review discharge instructions, discussion of self care needs and goals of care. Services Needed at Discharge: Home Health Care Services (resume HH RN, PT), Transportation ([facility] private vehicle)
--- NOTE | 2020-12-17 07:28 | OTDS_ITS ---
Date of service: 12/17/20 Time of Service: 07:28 Occupational Therapy Notes Occupational Therapy Inpatient Discharge Summary Date: 12/17/20 Dates of Service: 12/15/20-12/16/20 Referring Doctor: Laly Dumont MD OT Orders: Eval and Treat- Non Urgent Precautions: Fall, Standard PATIENT PROFILE/ADMITTING DIAGNOSIS: Pt is a 75 year old female who was admitted through the ER with a significant PMHx of alcohol abuse, hypertension, hyperlipidemia, lung nodule, pelvic mass, ambulatory dysfunction with multiple falls at home, who had fallen at home (12/13/20) and could not get up for at least an hour. Past Medical History: Alcohol abuse (Chronic) Alcoholic ketosis (Resolved) Allergic rhinitis (Chronic) Anemia (Chronic 12/20/16) Back pain, chronic (Chronic) Cataract (Chronic 11/07/15) Cervical radicular pain (Chronic) Chronic alcoholic gastritis (Chronic 10/12/17) Depression (Chronic) Elev transaminase/LDH (Chronic) Falling (Chronic) Genital herpes simplex (Chronic) GERD (gastroesophageal reflux disease) (Chronic) GI bleed (Chronic 12/20/16) Headache (Chronic) Hyperlipidemia (Chronic) Hypertension (Chronic) Macrocytosis (Chronic 09/26/14) Multiple rib fractures (Acute) Non-cardiac chest pain (Chronic 09/21/16) Osteoarthritis (Chronic) Osteopenia (Chronic) 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) Pleural effusion on left (Acute) Right rib fracture (Resolved) Sciatica (Chronic) Tubular adenoma of colon (Chronic 01/28/17) Urinary incontinence (Chronic) Wernicke encephalopathy (Chronic) Surgical History Bladder Surgery Colonoscopy - MAC (01/28/17) EGD - MAC (12/20/16) Ligation of fallopian tube Repair bladder injury, simple Social History/Home Situation: She reports that she lives in a private home and has a caregiver who comes into the home 2 hours per day. She reports that her caregiver (A) with laundry, grocery shopping and home care tasks. Pt states that she takes a shower 2-3x per week. She states that she has a shower seat and what she considers a regular shower. She has a regular toilet and grab bars near her shower but they are removable. She states that otherwise she feels she is (I) and that she lives with her dog and 3 cats. Equipment owned/DME: grab bars, shower seat, FWW SUBJECTIVE: NT OBJECTIVE: ROM: RUE AROM limited to 60*AROM due to pain from fall. L UE AROM WFL with limited shoulder flexion to 110* STRENGTH: RUE Shoulder flexion 3-/5, bicep 3/5, tricep 3-/5, surgical instrument technician is weak and symmetrical LUE Shoulder flexion 3-/5, bicep 3/5, tricep 3-/5, surgical instrument technician is weak and symmetrical FUNCTIONAL MOBILITY/ADLS: Rolling L/R: (I) Supine-sit: (I) Sit-supine: (I) BATHING: sitting in bed with max (A) set up/clean up Upper Body: (I) Lower Body: (I) DRESSING: Sitting in bed Upper Extremity: min (A) don and doffing hospital gown Lower Extremity: Pt denies GROOMING: (I) brushing hair BALANCE: Static sitting Normal Dynamic Sitting Good ASSESSMENT: Patient is a 75-year-old female referred to occupational therapy services with diagnosis of alcohol abuse, hypertension, hyperlipidemia, lung nodule, pelvic mass, ambulatory dysfunction with multiple falls at home, who had fallen at home (12/13/20) and could not get up for at least an hour. Pt was seen for 2 skilled OT session including her evaluation. She was at her baseline level of function at discharge and will have HH services when she returns home. GOALS- Not met as pt was seen for OT consult and then later discharged. 1. Transfers- (S), FWW 2. Dressing sitting on side of bed (I) with UE don and doffing shirt, (I) with don and doffing pants 3. Bathing standing at sink (I) UE/LE 4. Toileting on toilet (I) 5. Grooming- standing at sink pt will be able to stand at sink (I) with brushing teeth PLAN OF CARE/TREATMENT PLAN: Pt returned home with HH services on 12/16/20. DISCHARGE RECOMMENDATIONS Home with HH services vs. SNF TREATMENT TIME/MINUTES/CODES N/A Yee Elizalde, OTR/L [facility]
--- NOTE | 2020-12-17 13:40 | INDS_ITS ---
Date of service: 12/17/20 Time of Service: 13:40 PT Notes Visit Reasons: HYPOKALEMIA,HYPOMAGNESEMIA,INTRACT PAIN,ALCOHOL IN Inpatient Physical Therapy Evaluation Date: 12/17/2020 Dates of service: 12/14/2020 through 12/16/2020 This is a clinical summary of care provided on the duration of dates listed above. No charge was made in the completion of this documentation. Referring Doctor: Laly Dumont MD PT Orders: PT CONSULT: Limited ability Precautions: Standard, Falls Patient Profile/Admitting Diagnosis: Leticia is a 75 year old female who is well known to our service, who has a PMHx of alcohol abuse, hypertension, hyperlipid emia, lung nodule, pelvic mass, ambulatory dysfunction with multiple falls at home, who had fallen at home (12/13/20) and could not get up for at least an hour. Patient was brought to [facility] ED by ambulance. She reported pain all over to the ED and that she had fallen because of feeling lightheaded which has been ongoing. PMHX: Medical History Adjustment disorder with depressed mood AMBER (acute kidney injury) Alcohol abuse Alcoholic gastritis without bleeding Alcoholic ketosis Allergic rhinitis Anemia (12/20/16) Back pain, chronic Calcific tendinitis of left shoulder CAP (community acquired pneumonia) Cataract (11/07/15) Cervical radicular pain neck pain and DJD [facility] 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) pls refrain from alcohol Chronic alcoholism she will not stop drinking unless she checks with me, so that we can help her avert withdrawal I do not think she is capable on her own--she would need placement to achieve required goal of 3 months of sobriety Chronic diarrhea Closed displaced fracture of proximal phalanx of right index finger with routine healing (06/03/17) Closed right humeral fracture Contusion of left little finger Corneal ulcer, right (~08/23/18) 08/23/18; [facility] Dehydration Depression Diarrhea Discharge planning issues DVT prophylaxis Dystrophic nail Elev transaminase/LDH due to alcohol Epigastric abdominal pain Fall as cause of accidental injury at home as place of occurrence Genital herpes simplex recurrent gential; suppressive Valtrex GERD (gastroesophageal reflux disease) GI bleed (12/20/16) Head contusion Headache History of alcohol abuse Humerus fracture (09/12/19) Right Hyperlipidemia Hypertension Incidental lung nodule, greater than or equal to 8mm 1cm, spiculated, stable for many years, recommend f/u in 6 mo Macrocytosis (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 Multiple rib fractures 03/11/19 [facility] Nausea and vomiting in adult Non-cardiac chest pain (09/21/16) [facility] 09/21/16 NEGATIVE MP Osteoarthritis Osteopenia Palliative care patient (03/21/17) Pancreatitis, alcoholic, acute Peripheral edema Pleural effusion on left 03/11/19 [facility] Presacral mass (~09/15/18) 09/15/18 [facility] Right rib fracture Sacral mass Sciatica right, epidural injuections PainCare Tendinitis of left rotator cuff Tubular adenoma of colon (01/28/17) Urinary incontinence 01/24/13 urethral suspension and sling at [facility] (bladder suspension 1991) UTI (urinary tract infection) 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 Bladder repair. Ligation of fallopian tube Repair bladder injury, simple Social History/Home Situation: Leticia lives in a private home in [place], [place]. She has a caregiver who comes in daily 4 days per week for 2 hours each time to assist with laundry, minor house chores, and grocery shopping. Patient is independent with ADLs using a front wheeled walker. She receives meals on wheels. She no longer drives. Equipment Owned/DME: FWW, SC, grab bars, emergency alert device. Subjective: NT. See most recent SHUTTLE ROUTE VEHICLE OPERATOR notes. Objective: General Observation: NT. See most recent SHUTTLE ROUTE VEHICLE OPERATOR notes. Mental Status: NT. See most recent SHUTTLE ROUTE VEHICLE OPERATOR notes. Pain: NT. See most recent SHUTTLE ROUTE VEHICLE OPERATOR notes. ROM: Right Upper Extremity: Shoulder Flexion allows up to 90 degrees. Shoulder abduction allows up to 70 degrees. Elbow flexion WFL. Wrist flexion WFL. Functional opening and closing of hand WFL. Left Upper Extremity: Shoulder Flexion allows up to 100 degrees. Shoulder abduction allows up to 90 degrees. Elbow flexion WFL. Wrist flexion WFL. Functional opening and closing of hand WFL. Right Lower Extremity: Hip flexion allows up to 20 degrees beyond 90 while seated at edge of bed. Hip abduction WFL. Knee flexion 30-90 degrees. Knee extension -30 degrees. Ankle dorsiflexion WFL. Ankle plantarflexion WFL. Left Lower Extremity: Hip flexion allows up to 20 degrees beyond 90 while seated at edge of bed. Hip abduction WFL. Knee flexion 30-90 degrees. Knee extension - 30 degrees. Ankle dorsiflexion WFL. Ankle plantarflexion WFL. Strength: Right Upper Extremity: Shoulder flexors 3-/5. Shoulder abductors 3-/5. Elbow flexors 4/5. Elbow extensors 4/5. Retail Field Supervisor strong. Left Upper Extremity: Shoulder flexors 3-/5. Shoulder abductors 3-/5. Elbow flexors 4/5. Elbow extensors 4/5. Retail Field Supervisor strong. Right Lower Extremity: Hip flexors 3-/5. Hip abductors 4-/5. Knee flexors 3-/5. Knee extensors 3-/5. Ankle dorsiflexors 4-/5. Ankle plantarflexors 4-/5. Left Lower Extremity: Hip flexors 3-/5. Hip abductors 4-/5. Knee flexors 3-/5. Knee extensors 3-/5. Ankle dorsiflexors 4-/5. Ankle plantarflexors 4-/5. Bed Mobility/Transfers: Supine to sit independent Sit to supine independent Stand to sit independent Bed to chair independent Gait: Patient exhibited reciprocal gait for 20 feet + 80 feet requiring standby assist. Decreased violeta. Decreased step length and height. Will require use of walker. Balance: Static Sitting: Good Dynamic Sitting: Good Static Standing: Fair Dynamic Standing: Fair Assessment: Patient continues to demonstrate generalized weakness, functional mobility prior requiring the need for front wheeled walker for all mobility ADL perform this, difficulty with walking with walking, impairment with balance, and increased fall risk resulting from current diagnoses. She will benefit from PT services to address impairments and functional limitations listed below. Patient continues to present with clinical signs and symptoms consistent with current/admitting diagnoses that have resulted to mobility limitations, gait instability, generalized weakness, and impairment of motor control as demonstrated by the following impairment level findings: 1. Decreased strength to B UE/LE major muscle groups 2. Impaired standing balance 3. Impaired activity tolerance 4. Headache and fatigue affecting ambulation distance Impairments are continuing to contribute to the following functional limitations: 1. Increased dependence with transfers 2. Inability to safely ambulate without assistive device and physical assistance 3. Increase completion time for mobility ADL performance 4. Increased fall risk 5. Inability to negotiate steps alone safely 6. Decreased ambulation distance Goals: Goals X1 week 1. Supine-Sit independent MET 2. Sit-Supine independent MET 3. Sit-Stand independent NOT MET 4. Stand-Sit independent NOT MET 5. Bed-Chair independent NOT MET 6. Chair-Bed independent NOT MET 7. Independent gait on level surface with use of straight cane for at least 300 feet without report of pain nor dyspnea NOT MET 8. Independent stair negotiation while holding onto bilateral rails for at least 5 steps without report of pain nor dyspnea NOT MET 9. Good static and dynamic standing balance/tolerance NOT MET DISCHARGE RECOMMENDATIONS: SNF vs. HHPT TREATMENT CODE/TIME: UT Thank you for the opportunity to participate in the care of this patient. Tawana Cruz PT, DPT, CLT [facility] [place], [place]
== END 2020-12-16 15:13 | disposition home or self-care (01) | DRG 897 ==
LOC: ER 20:46 → MS 21:50
PROVIDERS: Internal Medicine; Admitting Provider Internal Medicine; Emergency Provider Physician Assistant; PCP Family Medicine; Visit Provider Internal Medicine
DX: F10.229 Alcohol dependence with intoxication, unspecified (principal); E46 Unspecified protein-calorie malnutrition; E51.2 Wernicke's encephalopathy; S42.031K Displaced fracture of lateral end of right clavicle, subsequent encounter for fracture with nonunion; R42 Dizziness and giddiness; E86.0 Dehydration; F43.21 Adjustment disorder with depressed mood; K29.20 Alcoholic gastritis without bleeding; D64.9 Anemia, unspecified; G89.29 Other chronic pain; M54.9 Dorsalgia, unspecified; M54.12 Radiculopathy, cervical region; F10.20 Alcohol dependence, uncomplicated; K21.9 Gastro-esophageal reflux disease without esophagitis; E78.5 Hyperlipidemia, unspecified; I10 Essential (primary) hypertension; R91.1 Solitary pulmonary nodule; D75.89 Other specified diseases of blood and blood-forming organs; M19.09 Primary osteoarthritis, other specified site; M85.80 Other specified disorders of bone density and structure, unspecified site; M54.31 Sciatica, right side; W01.0XXA Fall on same level from slipping, tripping and stumbling without subsequent striking against object, initial encounter; Z91.81 History of falling; R29.6 Repeated falls; Y92.090 Kitchen in other non-institutional residence as the place of occurrence of the external cause; Z87.891 Personal history of nicotine dependence; Z91.19 Patient's noncompliance with other medical treatment and regimen; K76.0 Fatty (change of) liver, not elsewhere classified; K70.9 Alcoholic liver disease, unspecified; E87.6 Hypokalemia; E83.42 Hypomagnesemia; R26.2 Difficulty in walking, not elsewhere classified; Y90.6 Blood alcohol level of 120-199 mg/100 ml; Z66 Do not resuscitate; M25.511 Pain in right shoulder; Z20.822 Contact with and (suspected) exposure to COVID-19
CPT/HCPCS: 36415; 74177; 80048; 80053; 80076; 82550; 83690; 87635; 93005; 96365; 96366; 96375; 97162; 97165; 97530; 97535; 99223; 99232; 99238; 99285; 70450; 71260; 72125; 73030; 80320; 81003; 81015; 82140; 83735; 85025; 85610; 93010; J1644; J2060; J3475

== ENCOUNTER 2020-12-26 20:41 | Emergency (ER) | payer OTHER, SELFPAY ==
[2020-12-26 20:40] VITALS: BP 128/81; PULSE 72; RESP 14; TEMP 36.4; O2SAT 97
--- NOTE | 2020-12-26 20:45 | DI.CT_ITS ---
Exam(s) CT HEAD CERVICAL SPINE WO EXAM: CT HEAD CERVICAL SPINE WO CLINICAL HISTORY: fall/etoh. TECHNIQUE: Imaging Protocol: Axial computed tomography images with coronal and sagittal reformatted images were created and reviewed COMPARISON: CT CT HEAD CERVICAL SPINE WO from 12/13/2020 FINDINGS: CT Head: Ventricles and Extra axial spaces: Normal in size and morphology for the patient's age. Hemorrhage: None. Cerebral parenchyma: No acute territorial infarct. There are areas of decreased attenuation in the w yuriy matter most consistent with chronic microvascular ischemic change. Midline shift: None. Brainstem/Cerebellum: Normal. Calvarium: Normal. Visualized Paranasal sinuses/Mastoids: Clear. Soft Tissues: Unremarkable. CT Cervical Spine: Bones: No acute fracture or subluxation. There is straightening of the cervical spine with mild rever janiya of the cervical lordosis seen at C6. Multilevel degenerative changes are present throughout the cervical spine. Degenerative grade 1 spondylolisthesis of C3 on C4 and C5 on C6 is noted. Soft Tissues: Atherosclerosis. Lung Apices: Clear. IMPRESSION: 1. No acute intracranial process. 2. No acute fracture or subluxation in the cervical spine. RADIATION DOSE DELIVERED: 1,331.41mGy.cm Total DLP DATA REPOSITORY: All CT scans at this facility are submitted to the National Radiology Data Registry (NRDR) Dose Index Registry (DIR) with the [employer] (A[employer]). RADIATION OPTIMIZATION: All CT scans at this facility use at least one of these dose optimization te chniques: automated exposure control; mA and/or kV adjustment per patient size (includes targeted exa ms where dose is matched to clinical indication); or iterative reconstruction.
[2020-12-26 20:48] VITALS: RESP 15
--- NOTE | 2020-12-26 20:55 | ED.GENADUL_ITS ---
Discharge Plan Disposition Patient Disposition: HOME Condition: Stable Discharge Details Clinical Impression: Alcohol abuse, Fall, Hypomagnesemia, Hypokalemia, Head injury Primary Care Provider: Lavelle Galindo ED Provider: Gwyn Sandoval Home Meds and New Rx's Prescriptions: Continued Xiidra 5 % dropperette 1 drp ophthalmic (eye) BID RF: 0 acamprosate 333 mg tablet,delayed release (DR/EC) 333 mg PO TID Qty: 90 RF: 2 magnesium oxide 400 mg magnesium capsule 400 mg PO BID Qty: 180 RF: 3 celecoxib [Celebrex] 100 mg capsule 100 mg PO BID Qty: 60 RF: 2 cholestyramine (with sugar) 4 gram powder 1 pwd PO BID Qty: 378 RF: 0 Ensure Active High Protein Liquid 414 ml PO DAILY Qty: 24064 RF: 11 dicyclomine 10 mg capsule 10 mg PO QID PRN (Reason: belly pain) Qty: 40 RF: 0 sucralfate 1 gram tablet 1 g PO AC & HS Qty: 120 RF: 5 ipratropium-albuterol 0.5 mg-3 mg(2.5 mg base)/3 mL solution for nebulization 3 ml IH QID PRN (Reason: shortness of breath) Qty: 90 RF: 3 fluticasone propionate 50 mcg/actuation spray,suspension 1 spray NS daily prn Qty: 9.9 RF: 2 gabapentin 300 mg capsule 300 mg PO BID Qty: 90 RF: 5 metoprolol tartrate 50 mg tablet 50 mg PO BID Qty: 180 RF: 3 multivitamin [Multiple Vitamins] Tablet 1 tab PO DAILY Qty: 90 RF: 3 pantoprazole 40 mg tablet,delayed release (DR/EC) 40 mg PO DAILY Qty: 90 RF: 3 potassium chloride [Klor-Con M10] 10 mEq tablet,ER particles/crystals 10 meq PO DAILY Qty: 90 RF: 3 venlafaxine 37.5 mg capsule,extended release 24hr 37.5 mg PO DAILY Qty: 30 RF: 11 venlafaxine 150 mg capsule,extended release 24hr 150 mg PO DAILY Qty: 30 RF: 11 thiamine HCl (vitamin B1) 100 mg tablet 100 mg PO DAILY Qty: 90 RF: 3 folic acid 1 mg tablet 1 mg PO DAILY Qty: 90 RF: 3 doxepin 3 mg tablet 3 mg PO BID PRN (Reason: itch) Qty: 30 RF: 0 hydroxyzine HCl 25 mg tablet 25 mg PO TID PRN (Reason: itching) Qty: 30 RF: 2 Refresh Plus 0.5 % Dropperette 1 drp OU Q4H WHILE AWAKE Qty: 30 RF: 0 diphenhydramine HCl 25 mg Capsule 25 mg PO Q4H PRN PRNQty: 20 RF: 0 Restasis 0.05 % Dropperette 0.4 ml OU BID Qty: 10 RF: 0 hydrocortisone 1 % Cream 0 g topical TID Qty: 1 RF: 2 Eucerin Cream 0 g topical TID Qty: 1 RF: 1 Bio-K plus 50 billion cell Capsule,Delayed Release(Dr/Ec) 1 cap PO DAILY Qty: 60 RF: 0 sennosides [Senokot] 8.6 mg tablet 8.6 mg PO PRN PRNRF: 0 naltrexone 50 mg tablet 50 mg PO DAILY RF: 0 amlodipine 5 mg tablet 5 mg PO DAILY RF: 0 Discharge Instructions Instructions: Hypokalemia (ED), Head Injury (ED), Abuse of Alcohol (ED), Hypomagnesemia (ED) Additional Instructions: CT imaging, x-rays, laboratory values do not reveal any obvious emergent process. Take all of your medications as directed. Drink alcohol in moderation. Please watch for new or worsening symptoms and return to the ER for any concerns. I recommend that you reach out to your primary care provider on Tuesday to discuss your ER visit and need for outpatient reevaluation Discharge Data Discharge Date/Time-TO BE ENTERED AT DEPARTURE: 12/26/20 23:47 Medical Decision Making <CELINA Kidd - Last Filed: 12/26/20 22:49> This 75-year-old female for LOC and to be here, brought by EMS. Reports moderate whiskey drinking today, mechanical fall probably around 5 PM. She believes she hit her head but does not recall any LOC. She is a rather vague and poor historian. She is initially not going to allow IV access or any imaging. After discussing options with her further, she is agreeable to IV access, IV fluids, IV thiamine, CT imaging of head, C-spine, x-ray of chest and pelvis. Will obtain routine laboratory values including CPK. Laboratory values reveal a white blood cell count of 3.08 hemoglobin 11.6 hematocrit 35.4 platelet count 211. Potassium 3.3 anion gap 14.5 creatinine 0.8 with a GFR greater than 60. Magnesium 1.6. AST 56 alk phosphatase 125 lipase 60 [address]. CPK Head CT, cervical spine CT read by radiology as no acute findings C-collar removed. Full range of motion of neck. X-ray of chest and pelvis read by radiology as negative. Patient was given p.o. magnesium and potassium Patient was observed in the ER for over 2 hours. She has no additional acute concerns or complaints and is requesting discharge. She has no interest in detox. Patient was able to ambulate slowly but steadily using a walker, reports this is her baseline. It would appear clinical sobriety has been reached. Transportation home was arranged Medical Records Medical records reviewed: Yes I reviewed the patient's medical records. Lab Data Lab results reviewed: Yes I reviewed the patient's lab results. Labs: Laboratory Tests Range/Units 12/26/20 12/26/20 12/26/20 20:15 20:15 20:15 WBC (4.4-10.8) 10^3/uL 3.08 L RBC (3.93-5.22) 10^6/uL 3.55 L Hgb (11.2-15.7) g/dL 11.6 Hct (36.0-46.0) % 35.4 L MCV (80-95) fL 99.7 H MCH (27.0-33.0) pg 32.7 MCHC (32.0-36.0) % 32.8 RDW (11.7-14.6) % 14.3 Plt Count (130-400) 10^3/uL 211 MPV (8.0-11.0) fL 9.0 Immature Gran % 0.6 Neutrophils % 57.8 Lymphocytes % 35.1 Monocytes % 4.9 Eosinophils % 0.3 Basophils % 1.3 Nucleated RBC % % 0 Absolute Neutrophils (1.2-6.7) 10^3/uL 1.78 Absolute Lymphocytes (1.2-3.4) 10^3/uL 1.08 L Absolute Monocytes (0.1-0.8) 10^3/uL 0.15 Absolute Eosinophils (0.0-0.7) 10^3/uL 0.01 Absolute Basophils (0.0-0.2) 10^3/uL 0.04 Sodium (136-145) mmol/L 141 Potassium (3.5-5.1) mmol/L 3.3 L Chloride (98-107) mmol/L 102 Carbon Dioxide (21.0-32.0) mmol/L 24.5 Anion Gap (3-11) mmol/L 14.5 H BUN (7-18) mg/dL 17 Creatinine (0.55-1.02) mg/dL 0.8 Estimated GFR/1.73 m2 (mL/min/1.73m2) >= 60.00 Glucose (74-106) mg/dL 88 Calcium (8.5-10.1) mg/dL 9.3 Magnesium (1.8-2.4) mg/dL 1.6 L Total Bilirubin (0.2-1.0) mg/dL 0.9 AST (15-37) U/L 56 H ALT (14-59) U/L 43 Alkaline Phosphatase (46-116) U/L 125 H Creatine Kinase (26-192) U/L 46 Total Protein (6.4-8.2) g/dL 7.2 Albumin (3.4-5.0) g/dL 3.4 Lipase (73-393) U/L 60 Ethyl Alcohol (<3) mg/dL 336.6 <Jamse Crenshaw MD - Last Filed: 01/02/21 23:01> Patient seen, examined, and discussed with CELINA Sandoval. Patient initially refusing x-ray. I discussed risk benefit with her and she is now agreeable. I agree with treatment plan as discussed/documented. HPI <CELINA Kidd - Last Filed: 12/26/20 22:49> General Mode of arrival: EMS . Date/Time Provider Initiated Documentation: 12/26/20 20:42 . Limitations to Documentation: no limitations . Information obtained by: patient and EMS . HPI Narrative: This is a 75-year-old female with past medical history that includes AMBER, alcohol abuse, gastritis, anemia, chronic back pain, depression, GERD, hypertension, pancreatitis, presented to the ER via EMS. Unfortunately patient is a rather vague and poor historian. Patient reports that she drank a moderate amount of whiskey today, had a mechanical fall around 5 PM, striking her head on a door jam. She does not recall losing consciousness. She reports mild global headache. She denies any other acute injuries. She states that she does not want to come here but EMS was concerned because of the alcohol on board and the head injury. She denies recent illness, visual changes, neck pain, chest pain, shortness of breath, abdominal pain, nausea, vomiting, numbness, tingling, focal weakness. Denies any change in bowel or bladder habits. Patient reported shoulder pain to psychiatric technician assistant, when questioning patient about shoulder pain she reports is chronic and does not want any x-rays of her shoulder. Related Data Home Medications Medication Instructions Recorded Confirmed Refresh Plus 1 drp OU Q4H WHILE AWAKE #30 each 06/20/19 12/31/20 magnesium oxide 400 mg PO BID #180 cap 07/17/19 12/31/20 food supplemt, lactose-reduced 414 ml PO DAILY #39159 ml 08/24/19 12/31/20 dicyclomine 10 mg capsule 10 mg PO QID PRN #40 cap 11/06/19 12/31/20 sucralfate 1 gram tablet 1 g PO AC & HS #120 tab 11/06/19 12/31/20 ipratropium 0.5 mg-albuterol 3 mg 3 ml IH QID PRN #90 ml 01/04/20 12/31/20 (2.5 mg base)/3 mL nebulization soln fluticasone propionate 50 1 spray NS daily prn #9.9 ml 03/25/20 12/31/20 mcg/actuation nasal spray,suspension Bio-K plus 1 cap PO DAILY #60 cap 05/12/20 12/31/20 celecoxib 100 mg capsule 100 mg PO BID #60 cap 06/13/20 12/31/20 lifitegrast 5 % eye drops in a 1 drp OPHTHALMIC (EYE) BID 08/05/20 12/31/20 dropperette sennosides [Senokot] 8.6 mg PO PRN PRN 08/08/20 12/31/20 cholestyramine (with sugar) 4 gram 1 pwd PO BID #378 g 08/27/20 12/31/20 oral powder folic acid 1 mg tablet 1 mg PO DAILY #90 tab 09/05/20 12/31/20 gabapentin 300 mg capsule 300 mg PO BID #90 cap 09/05/20 12/31/20 metoprolol tartrate 50 mg tablet 50 mg PO BID #180 tab 09/05/20 12/31/20 multivitamin 1 tab PO DAILY #90 tab 09/05/20 12/31/20 pantoprazole 40 mg tablet,delayed 40 mg PO DAILY #90 tab 09/05/20 12/31/20 release potassium chloride 10 mEq 10 meq PO DAILY #90 tab 09/05/20 12/31/20 tablet,extended release(part/cryst) thiamine HCl (vitamin B1) 100 mg 100 mg PO DAILY #90 tab 09/05/20 12/31/20 tablet venlafaxine 150 mg 150 mg PO DAILY #30 cap 09/05/20 12/31/20 capsule,extended release 24 hr venlafaxine 37.5 mg 37.5 mg PO DAILY #30 cap 09/05/20 12/31/20 capsule,extended release 24 hr doxepin 3 mg tablet 3 mg PO BID PRN #30 tab 10/15/20 12/31/20 hydroxyzine HCl 25 mg tablet 25 mg PO TID PRN #30 tab 10/17/20 12/31/20 Eucerin 0 g TOPICAL TID #1 unit 10/25/20 12/31/20 Restasis 0.4 ml OU BID #10 ea 10/25/20 12/31/20 diphenhydramine HCl 25 mg PO Q4H PRN PRN #20 cap 10/25/20 12/31/20 hydrocortisone 0 g TOPICAL TID #1 applic 10/25/20 12/31/20 amlodipine 5 mg PO DAILY 11/12/20 12/31/20 naltrexone 50 mg PO DAILY 11/12/20 12/31/20 acamprosate 333 mg tablet,delayed 333 mg PO TID #90 tab 11/26/20 12/31/20 release Previous Rx's Medication Instructions Recorded Refresh Plus 1 drp OU Q4H WHILE AWAKE #30 each 06/20/19 magnesium oxide 400 mg PO BID #180 cap 07/17/19 food supplemt, lactose-reduced 414 ml PO DAILY #46686 ml 08/24/19 dicyclomine 10 mg capsule 10 mg PO QID PRN #40 cap 11/06/19 sucralfate 1 gram tablet 1 g PO AC & HS #120 tab 11/06/19 ipratropium 0.5 mg-albuterol 3 mg 3 ml IH QID PRN #90 ml 01/04/20 (2.5 mg base)/3 mL nebulization soln fluticasone propionate 50 1 spray NS daily prn #9.9 ml 03/25/20 mcg/actuation nasal spray,suspension Bio-K plus 1 cap PO DAILY #60 cap 05/12/20 celecoxib 100 mg capsule 100 mg PO BID #60 cap 06/13/20 cholestyramine (with sugar) 4 gram 1 pwd PO BID #378 g 08/27/20 oral powder folic acid 1 mg tablet 1 mg PO DAILY #90 tab 09/05/20 gabapentin 300 mg capsule 300 mg PO BID #90 cap 09/05/20 metoprolol tartrate 50 mg tablet 50 mg PO BID #180 tab 09/05/20 multivitamin 1 tab PO DAILY #90 tab 09/05/20 pantoprazole 40 mg tablet,delayed 40 mg PO DAILY #90 tab 09/05/20 release potassium chloride 10 mEq 10 meq PO DAILY #90 tab 09/05/20 tablet,extended release(part/cryst) thiamine HCl (vitamin B1) 100 mg 100 mg PO DAILY #90 tab 09/05/20 tablet venlafaxine 150 mg 150 mg PO DAILY #30 cap 09/05/20 capsule,extended release 24 hr venlafaxine 37.5 mg 37.5 mg PO DAILY #30 cap 09/05/20 capsule,extended release 24 hr doxepin 3 mg tablet 3 mg PO BID PRN #30 tab 10/15/20 hydroxyzine HCl 25 mg tablet 25 mg PO TID PRN #30 tab 10/17/20 Eucerin 0 g TOPICAL TID #1 unit 10/25/20 Restasis 0.4 ml OU BID #10 ea 10/25/20 diphenhydramine HCl 25 mg PO Q4H PRN PRN #20 cap 10/25/20 hydrocortisone 0 g TOPICAL TID #1 applic 10/25/20 acamprosate 333 mg tablet,delayed 333 mg PO TID #90 tab 11/26/20 release Allergies Allergy/AdvReac Type Severity Reaction Status Date / Time Penicillins Allergy Mild Rash Verified 12/30/20 10:02 ramipril Allergy Unknown ITCHING Verified 12/30/20 10:02 meperidine [From Demerol] AdvReac Severe Nausea Verified 12/30/20 10:02 bupropion AdvReac Mild GI upset Verified 12/30/20 10:02 AMBER Inhibitors AdvReac Unknown COUGH Verified 12/30/20 10:02 alendronate sodium AdvReac Unknown GI Distress Verified 12/30/20 10:02 clarithromycin AdvReac Unknown intolerant Verified 12/30/20 10:02 paroxetine AdvReac Unknown Diarrhea Verified 12/30/20 10:02 General Stated Complaint: GenMedical JORDAN: 3 Review of Systems <CELINA Kidd - Last Filed: 12/26/20 22:49> Constitutional Constitutional: Denies fatigue, Denies fever(s) and Reports headache(s) Eyes Eyes: Denies change in vision ENT Ears, Nose, Mouth, and Throat: Reports headache(s) and Denies neck pain Cardiovascular Cardiovascular: Denies chest pain and Denies dyspnea Respiratory Respiratory: Denies cough and Denies dyspnea Gastrointestinal Gastrointestinal: Denies abdominal pain, Denies nausea and Denies vomiting Genitourinary Genitourinary: Denies dysuria Musculoskeletal Musculoskeletal: Reports back pain and Denies neck pain Integumentary/Breasts Skin/Breast: Denies rash Neurologic Neurologic: Reports headache(s) Endocrine Endocrine: Denies fatigue PFSH <CELINA Kidd - Last Filed: 12/26/20 22:49> Medical History Adjustment disorder with depressed mood AMBER (acute kidney injury) Alcohol abuse Alcoholic gastritis without bleeding Alcoholic ketosis Allergic rhinitis Anemia (12/20/16) Back pain, chronic Calcific tendinitis of left shoulder CAP (community acquired pneumonia) Cataract (11/07/15) Cervical radicular pain neck pain and [facility]D [facility] 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) pls refrain from alcohol Chronic alcoholism she will not stop drinking unless she checks with me, so that we can help her avert withdrawal I do not think she is capable on her own--she would need placement to achieve required goal of 3 months of sobriety Chronic diarrhea Closed displaced fracture of proximal phalanx of right index finger with routine healing (06/03/17) Closed right humeral fracture Contusion of left little finger Corneal ulcer, right (~08/23/18) 08/23/18; [facility] Dehydration Depression Diarrhea Discharge planning issues DVT prophylaxis Dystrophic nail Elev transaminase/LDH due to alcohol Epigastric abdominal pain Fall as cause of accidental injury at home as place of occurrence Genital herpes simplex recurrent gential; suppressive Valtrex GERD (gastroesophageal reflux disease) GI bleed (12/20/16) Head contusion Headache History of alcohol abuse Humerus fracture (09/12/19) Right Hyperlipidemia Hypertension Incidental lung nodule, greater than or equal to 8mm 1cm, spiculated, stable for many years, recommend f/u in 6 mo Macrocytosis (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 Multiple rib fractures 03/11/19 [facility] Nausea and vomiting in adult Non-cardiac chest pain (09/21/16) [facility] [place] NEGATIVE MP Osteoarthritis Osteopenia Palliative care patient (03/21/17) Pancreatitis, alcoholic, acute Peripheral edema Pleural effusion on left 03/11/19 [facility] Presacral mass (~09/15/18) 09/15/18 [facility] Right rib fracture Sacral mass Sciatica right, epidural injuections [facility] Tendinitis of left rotator cuff Tubular adenoma of colon (01/28/17) Urinary incontinence 01/24/13 urethral suspension and [place]ing [place] [facility] [place]bladder [place]) UTI (urinary tract infection) Vision loss of right eye 08/17/18;[facility] Wernicke encephalopathy Surgical History Bladder Surgery suspension Colonoscopy - MAC (01/28/17) EGD - MAC (12/20/16) History of bilateral ligation of fallopian tubes History of Surgical Procedure a. Bladder repair. Ligation of fallopian tube Repair bladder injury, simple Family History Mother No problems noted. Father , DROWNED at age 50. No problems noted. Sister Personal history of malignant neoplasm MELANOMA Sister No problems noted. Grandfather Personal history of malignant neoplasm STOMACH Grandfather Personal history of malignant neoplasm PROSTATE Grandmother Heart disease IN Acute ill-defined cerebrovascular disease Grandmother Personal history of malignant neoplasm UTERINE Aunt , IN Heart disease IN Aunt , [place] Heart disease Brother No problems noted. Social History Smoking/Tobacco Use Status: Former Tobacco Use Quit Date: 08/05/20 Smoking risk assessment performed?: Yes Alcohol Intake: current Alcohol Intake frequency: 3 or more drinks per day Alcohol type: hard liquor Drug use: Never Substance use type: does not use Current gender identity: female Do you feel safe at home: Yes Do you feel safe in your relationship?: Yes Additional Social history: Unable to obtain any history r/t patients alcohol consumption Exam <CELINA Kidd - Last Filed: 12/26/20 22:49> Const General: cooperative, comfortable and no acute distress Orientation: alert, awake, oriented to person and oriented to place HENPR Head: normal to inspection, no palpable skull fracture, normocephalic and atraumatic Ears: external ears normal, TM's normal bilaterally and EAC's normal Face and sinus: normal facial exam Mouth: moist mucous membranes abnormal (Dry) Eyes General: appearance normal, both eyes and all related structures Alignment and Position: alignment normal Periorbital: periorbital findings normal Eyelids: eyelids normal Conjunctivae: conjunctivae normal Sclera: sclerae normal Cornea: corneas normal Pupils: PERRL EOM: EOM intact bilaterally Direct ophthalmoscopy: normal light reflex Neck Neck: normal visual inspection, trachea midline, supple, nontender and other (Patient wearing hard c-collar) Chest Chest: normal inspection of the chest and normal palpation of entire chest wall Resp Effort & Inspection: normal respiratory effort and able to speak in complete sentences Auscultation: clear to auscultation bilaterally Cardio Rate: regular rate Rhythm: regular rhythm GI Inspection: normal to inspection Palpation: soft, not firm, no guarding and nontender Back/Spine/Pelvis Back: No back tenderness Pelvis: no pain with anterior-posterior compression and no pain with lateral compression Skin General skin exam: no rashes or lesions noted Neuro General: patient alert, patient awake, moves all extremities and no focal motor deficits Cognition: normal cognition Speech: speech normal Motor: muscle tone normal throughout Sensory Exam: no sensory deficits noted Extrem General: normal to inspection, full ROM and capillary refill normal Psych Appearance: grossly normal Mental Status: mental status grossly normal Course <CELINA Kidd - Last Filed: 12/26/20 22:49> Vital Signs Vital signs: Vital Signs Temperature 36.4 C L 12/26/20 20:40 Pulse 72 12/26/20 20:40 Respiratory Rate 14 12/26/20 20:40 Blood Pressure 128/81 12/26/20 20:40 Pulse Oximetry 97 12/26/20 20:40 Temperature 36.4 C L 12/26/20 20:40 Temperature Source Temporal Artery Scan 12/26/20 20:40 Pulse 72 12/26/20 20:40 Respiratory Rate 15 12/26/20 20:48 Respiratory Effort Non-Labored 12/26/20 20:48 Respiratory Depth Normal 12/26/20 20:48 Respiratory Pattern Normal 12/26/20 20:48 Blood Pressure 128/81 12/26/20 20:40 Blood Pressure Position Supine 12/26/20 20:40 Pulse Oximetry 97 12/26/20 20:40 Oxygen Delivery Method Room Air 12/26/20 20:40 Oxygen Flow Rate 0 12/26/20 20:40 Pain Level 2 12/26/20 20:40
[2020-12-26 21:15] LABS: Abs Immature Grans 0.02 10^3/uL (0.0-0.06); Absolute Basophil Count 0.04 10^3/uL (0.0-0.2); Absolute Eosinophil Count 0.01 10^3/uL (0.0-0.7); Absolute Lymphocyte Count 1.08 10^3/uL (1.2-3.4); Absolute Monocyte Count 0.15 10^3/uL (0.1-0.8); Absolute Neutrophil Count 1.78 10^3/uL (1.2-6.7); Basophils % 1.3; Eosinophils % 0.3; HCT 35.4 % (36.0-46.0); HGB 11.6 g/dL (11.2-15.7); Immature Grans % 0.6; Lymphocytes % 35.1; MCH 32.7 pg (27.0-33.0); MCHC 32.8 % (32.0-36.0); MCV 99.7 fL (80-95); Monocytes % 4.9; Neutrophils % 57.8; Nucleated RBC 0 %; Platelet Count 211 10^3/uL (130-400); RBC 3.55 10^6/uL (3.93-5.22); RDW 14.3 % (11.7-14.6); RDW-SD 52.4 fL; WBC 3.08 10^3/uL (4.4-10.8)
--- NOTE | 2020-12-26 21:15 | DI.RAD_ITS ---
Exam(s) XR PELVIS AP EXAM: XR PELVIS AP CLINICAL HISTORY: fall. TECHNIQUE: 2D digital imaging was performed. COMPARISON: CR PELVIS AP from 05/05/2017 FINDINGS: BONES: No acute fracture is present. No bony destructive lesion is seen. JOINTS: No dislocation present. There are degenerative changes seen in the lower lumbar spine. There is a transitional lumbosacral vertebral body. SOFT TISSUE: Normal. IMPRESSION: No acute fracture or dislocation. DATA REPOSITORY: RADIATION DOSE DELIVERED:
--- NOTE | 2020-12-26 21:15 | DI.RAD_ITS ---
Exam(s) XR CHEST 1V IN DI DEPT EXAM: XR CHEST 1V IN DI DEPT CLINICAL HISTORY: fall TECHNIQUE: 2D digital imaging was performed. COMPARISON: CR XR PORTABLE CHEST AP from 10/23/2020 FINDINGS: MEDIASTINUM: Normal. HEART: Normal. PULMONARY VASCULATURE: Normal. LUNGS: Clear. PLEURAL SPACE: No pleural effusion or pneumothorax. BONE:There are chronic bilateral old rib deformities. Postsurgical or posttraumatic changes are seen in the left clavicle. OTHER FINDINGS:Normal. IMPRESSION: No acute pulmonary findings. DATA REPOSITORY: RADIATION DOSE DELIVERED:
[2020-12-26 21:32] LABS: ALT 43 U/L (14-59); AST 56 U/L (15-37); Albumin 3.4 g/dL (3.4-5.0); Alkaline Phosphatase 125 U/L (46-116); Anion Gap 14.5 mmol/L (3-11); BUN 17 mg/dL (7-18); Bilirubin, Total 0.9 mg/dL (0.2-1.0); CO2 24.5 mmol/L (21.0-32.0); CREATININE 0.8 mg/dL (0.55-1.02); Calcium 9.3 mg/dL (8.5-10.1); Chloride 102 mmol/L (98-107); Creatine Kinase 46 U/L (26-192); Glucose 88 mg/dL (74-106); Lipase 60 U/L (73-393); Potassium 3.3 mmol/L (3.5-5.1); Sodium 141 mmol/L (136-145); Total Protein 7.2 g/dL (6.4-8.2)
[2020-12-26 21:42] LABS: ETHANOL BLOOD 336.6 mg/dL (<3)
[2020-12-26] MEDS: Normal Saline 1,000 ML 1000 ML IV (21:54)
[2020-12-26] MEDS: THIAMINE 100 MG in Normal Saline 100 ML 200 MG IVPB (21:55)
--- NOTE | 2020-12-26 21:58 | DI.VRAD_ITS ---
PROCEDURE INFORMATION: Exam: XR Chest Exam date and time: 12/26/2020 9:45 PM Age: 75 years old Clinical indication: Injury or trauma; Fall; Blunt trauma (contusions or hematomas); Injury date: 12/26/20 TECHNIQUE: Imaging protocol: XR of the chest. Views: 1 view. COMPARISON: CT CHEST/ABD/PEL W 12/13/2020 7:12 PM FINDINGS: Lungs: Unremarkable. No consolidation. Pleural spaces: Unremarkable. No pleural effusion. No pneumothorax. Heart/Mediastinum: Unremarkable. No cardiomegaly. Bones/joints: Chronic rib fracture deformities. IMPRESSION: No acute findings. Dictated and Authenticated by: Blaze Yo MD. Ordering:MOUNA Pascal MD
--- NOTE | 2020-12-26 22:01 | DI.VRAD_ITS ---
PROCEDURE INFORMATION: Exam: XR Pelvis Exam date and time: 12/26/2020 9:45 PM Age: 75 years old Clinical indication: Injury or trauma; Fall; Blunt trauma (contusions or hematomas); Bilateral; Pelvic region; Injury date: 12/26/20 TECHNIQUE: Imaging protocol: XR pelvis. Views: 1 or 2 view. COMPARISON: CT CHEST/ABD/PEL W 12/13/2020 7:12 PM FINDINGS: Bones/joints: Unremarkable. No acute fracture. Soft tissues: Unremarkable. IMPRESSION: No acute findings. Dictated and Authenticated by: Blaze Yo MD. Ordering:MOUNA Pascal MD
--- NOTE | 2020-12-26 22:03 | DI.VRAD_ITS ---
PROCEDURE INFORMATION: Exam: CT Head Without Contrast Exam date and time: 12/26/2020 9:29 PM Age: 75 years old Clinical indication: Injury or trauma; Fall; Blunt trauma (contusions or hematomas); Consciousness not specified; Injury date: 12/26/20 TECHNIQUE: Imaging protocol: Computed tomography of the head without contrast. Radiation optimization: All CT scans at this facility use at least one of these dose optimization techniques: automated exposure control; mA and/or kV adjustment per patient size (includes targeted exams where dose is matched to clinical indication); or iterative reconstruction. COMPARISON: CT HEAD CERVICAL SPINE WO 12/13/2020 7:04 PM FINDINGS: Brain: There is moderate age related parenchymal atrophy with prominence of the cortical sulci. Periventricular and deep white matter hypodensities are consistent with sequela of chronic microvascular ischemic disease. No midline shift or herniation. No acute intracranial hemorrhage. Cerebral ventricles: Mild ex vacuo dilation of the ventricles, likely secondary to age related volume loss. Bones/joints: Unremarkable. No acute osseous finding. Paranasal sinuses: Visualized sinuses are unremarkable. No fluid levels. Mastoid air cells: No mastoid effusion. Orbital cavity: Status post lens replacement on the right. Vasculature: Vascular calcifications within the vertebral and carotid arteries are present. Soft tissues: No focal soft tissue abnormality. IMPRESSION: 1. No acute intracranial finding. 2. Chronic/senescent findings as discussed. PROCEDURE INFORMATION: Exam: CT Cervical Spine Without Contrast Exam date and time: 12/26/2020 9:29 PM Age: 75 years old Clinical indication: Injury or trauma; Fall; Blunt trauma (contusions or hematomas); Consciousness not specified; Injury date: 12/26/20 TECHNIQUE: Imaging protocol: Computed tomography images of the cervical spine without contrast. Radiation optimization: All CT scans at this facility use at least one of these dose optimization techniques: automated exposure control; mA and/or kV adjustment per patient size (includes targeted exams where dose is matched to clinical indication); or iterative reconstruction. COMPARISON: CT HEAD CERVICAL SPINE WO 12/13/2020 7:04 PM FINDINGS: Bones/joints: Diffuse decreased osseous mineralization consistent with osteopenia. No acute fracture. Stable scattered degenerative grade 1 spondylolisthesis at C3-C4 and C5-C6 with straightening of normal cervical lordosis and mild curve reversal centered at C6 also similar to comparison exam. No traumatic spondylolisthesis. Moderate degenerative facet changes asymmetrically to the left predominantly affecting the upper to mid cervical spine. Discs/Spinal canal/Neural foramina: Unchanged moderate to severe degenerative disc changes at the C4-C6 levels, moderate at C6-C7. No high-grade osseous neural foraminal or central canal stenosis. Thyroid: No mass. Lymph nodes: No pathologically sized nodes by CT size criteria. Vasculature: Bilateral carotid vascular calcifications. Soft tissues: No focal abnormality. IMPRESSION: 1. No acute fracture. 2. Cervical spondylosis as discussed, not changed to most recent comparison. Dictated and Authenticated by: Jg Kaur MD. Ordering:MOUNA Pascal MD
[2020-12-26 22:07] LABS: Magnesium 1.6 mg/dL (1.8-2.4)
[2020-12-26] MEDS: Magnesium Oxide 400 MG TAB 800 MG PO (22:21)
[2020-12-26] MEDS: Potassium Chloride 20 MEQ TABCR 40 MEQ PO (22:21)
[2020-12-26 23:45] VITALS: BP 128/81; PULSE 72; RESP 15; TEMP 36.4
--- NOTE | 2020-12-27 00:01 | NUR.NOTE ---
Referral to Care Management for RCT voucher for a ride home 12/26/20.
== END 2020-12-26 23:47 | disposition home or self-care (01) ==
PROVIDERS: Emergency Provider Physician Assistant; PCP Family Medicine
DX: E83.42 Hypomagnesemia (principal); E87.6 Hypokalemia; F10.120 Alcohol abuse with intoxication, uncomplicated; Y90.8 Blood alcohol level of 240 mg/100 ml or more; S09.8XXA Other specified injuries of head, initial encounter; W19.XXXA Unspecified fall, initial encounter
CPT/HCPCS: 36415; 80053; 82550; 83690; 96361; 96365; 99284; 70450; 71045; 72125; 72170; 80320; 83735; 85025

== ENCOUNTER 2021-01-27 21:10 | Emergency (ER) | payer OTHER, SELFPAY ==
[2021-01-27] VITALS (16 sets, daily range): BP systolic 150–166; BP diastolic 86–100; PULSE 88–95; RESP 10–24; TEMP 36.6; O2SAT 96–99
--- NOTE | 2021-01-27 21:15 | DI.RAD_ITS ---
Exam(s) XR CHEST 1V IN DI DEPT EXAM: XR CHEST 1V IN DI DEPT CLINICAL HISTORY: trauma TECHNIQUE: 2D digital imaging was performed. COMPARISON: CR,XR XR CHEST 1V IN DI DEPT from 12/26/2020 FINDINGS: MEDIASTINUM: Normal. HEART: Mild cardiomegaly. PULMONARY VASCULATURE: Normal. LUNGS: Clear. PLEURAL SPACE: No pleural effusion or pneumothorax. BONE:Old bilateral rib fractures. Chronic deformity of the left clavicle. OTHER FINDINGS:Normal. IMPRESSION: No acute pulmonary findings. DATA REPOSITORY: RADIATION DOSE DELIVERED:
--- NOTE | 2021-01-27 21:15 | DI.CT_ITS ---
Exam(s) CT HEAD CERV SPINE FACIAL WO EXAM: CT HEAD CERV SPINE FACIAL WO CLINICAL HISTORY: fall/trauma. TECHNIQUE: Imaging Protocol: Axial computed tomography images with coronal and sagittal reformatted images were created and reviewed COMPARISON: CT HEAD AND CSPINE W/O CONTRAST from 07/18/2015 CT HEAD NECK FACIAL WO from 02/01/2016 CT HEAD AND CSPINE W/O CONTRAST from 05/05/[address] CHEST PE ABD PELVIS W from 04/11/[address] CHEST/ABD/PEL W from 12/13/[address] HEAD CERVICAL SPINE WO from 12/26/2020 FINDINGS: The examination is limited due to patient motion artifact. CT Head: Ventricles and Extra axial spaces: Normal in size and morphology for the patient's age. Hemorrhage: None. Cerebral parenchyma: There are areas of decreased attenuation in the white matter most consistent wit h chronic microvascular ischemic disease. No acute territorial infarct. Midline shift: None. Brainstem/Cerebellum: Normal. Calvarium: No calvarial fracture. Please see the maxillofacial CT report below. Visualized Paranasal sinuses/Mastoids: Please see the maxillofacial CT report below. Soft Tissues: Please see the maxillofacial CT report below. CT Face: Facial Bones: There is a mildly depressed fracture of the anterior wall of the right maxillary sinus . No other definite acute fracture or dislocation is present. There is a chronic deformity of the rig ht inferior orbital wall. Sinuses and Mastoids: There is layering blood in the right maxillary sinus. Mucous retention cyst or polyp is in a left ethmoid air cell. There is also mild mucosal thickening of the left sphenoid sinu s. Mastoid air cells are clear. There are old nasal bone fractures. Globes, extraocular muscles, optic nerves and retrobulbar fat: Normal. Upper aerodigestive tract: Normal. Mandible and bilateral temporomandibular joints: Normal. Soft tissues: There is a large hematoma overlying the right face and periorbital soft tissues with a small amount of subcutaneous emphysema. CT Cervical Spine: Bones: No acute fracture or subluxation. Moderate degenerative changes are seen in the cervical spine particularly from C3-4 through C6-C7. There is mild anterolisthesis of C3 on C4 and C5 on C6. Soft Tissues: Unremarkable. Lung Apices: Scarring in the lung apices. Unchanged spiculated opacity in the right lung apex. This h as been present on multiple prior examinations IMPRESSION: 1. No acute intracranial process. 2. No acute fracture or subluxation in the cervical spine. 3. Mildly depressed fracture of the anterior wall of the right maxillary sinus. 4. Large subcutaneous hematoma overlying the right face. RADIATION DOSE DELIVERED: 1,702.16mGy.cm Total DLP DATA REPOSITORY: All CT scans at this facility are submitted to the National Radiology Data Registry (NRDR) Dose Index Registry (DIR) with the [employer] ([employer]). RADIATION OPTIMIZATION: All CT scans at this facility use at least one of these dose optimization te chniques: automated exposure control; mA and/or kV adjustment per patient size (includes targeted exa ms where dose is matched to clinical indication); or iterative reconstruction.
--- NOTE | 2021-01-27 21:15 | DI.RAD_ITS ---
Exam(s) XR PELVIS AP EXAM: XR PELVIS AP CLINICAL HISTORY: trauma. TECHNIQUE: 2D digital imaging was performed. COMPARISON: CR,XR XR PELVIS AP from 12/26/2020 FINDINGS: BONES: No acute fracture is present. No bony destructive lesion is seen. Osteopenia. JOINTS: No dislocation present. No joint space narrowing is present. Mild degenerative changes of the hips. SOFT TISSUE: Normal. IMPRESSION: No acute fracture or dislocation. DATA REPOSITORY: RADIATION DOSE DELIVERED:
--- NOTE | 2021-01-27 21:15 | RT.EKG_ITS ---
APPROVED REPORT Exam: Resting ECG Reason for Exam: fall/trauma/etoh Patient Location: E HR:86 bpm ECG Measurements Heart Rate [address] 221 P 70 QRSd 99 QRS -32 QT 372 T -1 QTc 446 Conclusion Sinus rhythm.. Prolonged CT interval.. Left ventricular hypertrophy.
--- NOTE | 2021-01-27 21:36 | W.ED.GENAD ---
Discharge Plan Disposition Patient Disposition: HOME Condition: Stable Discharge Details Clinical Impression: Facial fracture due to fall, Hypokalemia, Alcohol intoxication Primary Care Provider: Lavelle Galindo ED Provider: Wes Dc Washburn Meds and New Rx's Prescriptions: Continued Xiidra 5 % dropperette 1 drp ophthalmic (eye) BID RF: 0 acamprosate 333 mg tablet,delayed release (DR/EC) 333 mg PO TID Qty: 90 RF: 2 magnesium oxide 400 mg magnesium capsule 400 mg PO BID Qty: 180 RF: 3 celecoxib [Celebrex] 100 mg capsule 100 mg PO BID Qty: 60 RF: 2 cholestyramine (with sugar) 4 gram powder 1 pwd PO BID Qty: 378 RF: 0 Ensure Active High Protein Liquid 414 ml PO DAILY Qty: 00022 RF: 11 dicyclomine 10 mg capsule 10 mg PO QID PRN (Reason: belly pain) Qty: 40 RF: 0 sucralfate 1 gram tablet 1 g PO AC & HS Qty: 120 RF: 5 ipratropium-albuterol 0.5 mg-3 mg(2.5 mg base)/3 mL solution for nebulization 3 ml IH QID PRN (Reason: shortness of breath) Qty: 90 RF: 3 fluticasone propionate 50 mcg/actuation spray,suspension 1 spray NS daily prn Qty: 9.9 RF: 2 gabapentin 300 mg capsule 300 mg PO BID Qty: 90 RF: 5 metoprolol tartrate 50 mg tablet 50 mg PO BID Qty: 180 RF: 3 multivitamin [Multiple Vitamins] Tablet 1 tab PO DAILY Qty: 90 RF: 3 pantoprazole 40 mg tablet,delayed release (DR/EC) 40 mg PO DAILY Qty: 90 RF: 3 potassium chloride [Klor-Con M10] 10 mEq tablet,ER particles/crystals 10 meq PO DAILY Qty: 90 RF: 3 venlafaxine 37.5 mg capsule,extended release 24hr 37.5 mg PO DAILY Qty: 30 RF: 11 venlafaxine 150 mg capsule,extended release 24hr 150 mg PO DAILY Qty: 30 RF: 11 thiamine HCl (vitamin B1) 100 mg tablet 100 mg PO DAILY Qty: 90 RF: 3 folic acid 1 mg tablet 1 mg PO DAILY Qty: 90 RF: 3 doxepin 3 mg tablet 3 mg PO BID PRN (Reason: itch) Qty: 30 RF: 0 hydroxyzine HCl 25 mg tablet 25 mg PO TID PRN (Reason: itching) Qty: 30 RF: 2 silver sulfadiazine [Silvadene] 1 % cream 1 applic topical DAILY Qty: 25 RF: 1 Refresh Plus 0.5 % Dropperette 1 drp OU Q4H WHILE AWAKE Qty: 30 RF: 0 diphenhydramine HCl 25 mg Capsule 25 mg PO Q4H PRN PRNQty: 20 RF: 0 Restasis 0.05 % Dropperette 0.4 ml OU BID Qty: 10 RF: 0 hydrocortisone 1 % Cream 0 g topical TID Qty: 1 RF: 2 Eucerin Cream 0 g topical TID Qty: 1 RF: 1 Bio-K plus 50 billion cell Capsule,Delayed Release(Dr/Ec) 1 cap PO DAILY Qty: 60 RF: 0 sennosides [Senokot] 8.6 mg tablet 8.6 mg PO PRN PRNRF: 0 naltrexone 50 mg tablet 50 mg PO DAILY RF: 0 amlodipine 5 mg tablet 5 mg PO DAILY RF: 0 Discharge Instructions Instructions: Head Injury (ED), Alcohol Intoxication (ED) Additional Instructions: You should strongly consider cutting back on your alcohol use. This fall has resulted in a fracture to your face. You should follow-up with ear nose and throat in the next week or 2. Continue other medications as before. Return to ED for problems. Referrals: Saeed Luo DO [OSTEOPATHIC DOCTOR] - Lavelle Galindo [Primary Care Provider] - Discharge Data Discharge Date/Time-TO BE ENTERED AT DEPARTURE: 01/28/21 06:59 Medical Decision Making <CELINA Kidd - Last Filed: 01/28/21 16:40> 75-year-old female presents to the ER via EMS status post mechanical fall sustaining a right facial injury. She does admit to EtOH. Unclear whether there was any LOC. Patient is a very vague and poor historian. She does not have any obvious trauma other than her face. She is willing now to wear a c-collar. Will obtain IV access, CT imaging of her head, face, C-spine. Will obtain laboratory values as well as give IV fluids. Will obtain single troponin and EKG. Patient denies any chest pain whatsoever. Will obtain 1 view chest x-ray as well as a 1 view pelvis x-ray. Initial laboratory values reveal a white blood cell count of 2.89 hemoglobin 11.1 hematocrit 33.1 platelet count 116, this all appears to be near her baseline. INR 1.0. Potassium 3.0. EKG does not reveal any obvious changes consistent with hypokalemia. Will give 20 IV and once her CTs have resulted we will give 40 p.o. if indicated. Creatinine 0.8 with a GFR greater than 60. Glucose 111. Magnesium 1.5, will give 1 g IV. Troponin less than 0.05. Lipase 49. Urinalysis positive for nitrate, 5-10 white cells. She denies any dysuria, will await culture. Urine tox positive for benzodiazepine. Alcohol 340. The laceration to the right side of the face does not require approximation. It was cleaned and dressed appropriately. CT imaging of head, face, neck unremarkable head and neck. C-collar removed. CT imaging of face reveals a depressed acute comminuted minimally displaced right anterior maxillary wall fracture. Patient placed on the ENT outpatient follow-up with us that she can properly follow-up for her maxillary wall fracture. X-ray of the pelvis read as no acute findings. X-ray of chest read by radiology as no acute findings. While awaiting clinical sobriety, patient was given 40 p.o. potassium. She was also requesting food, tolerated p.o. intake without difficulty. At time of signout to Dr. Dc, patient is awaiting clinical sobriety and disposition. Medical Records Medical records reviewed: Yes I reviewed the patient's medical records. Imaging Data Radiologic Study: Attestation: I personally reviewed and interpreted this imaging study as follows: Imaging: CT Scan Radiologist's impression: CT imaging of head, facial bones, cervical spine read by radiology. Impression of the head is no acute intracranial findings. Impression of the cervical spine is no acute fracture or dislocation. Impression of maxillofacial reveals prominent soft tissue injury to the face with depressed acute comminuted minimally displaced right anterior maxillary wall fracture. Lab Data Lab results reviewed: Yes I reviewed the patient's lab results. Labs: 01/27/21 22:32 Urine - Reflex from Ua Urine Culture - Pending Laboratory Tests Range/Units 01/27/21 01/27/21 01/27/21 21:35 21:35 21:35 WBC (4.4-10.8) 10^3/uL RBC (3.93-5.22) 10^6/uL Hgb (11.2-15.7) g/dL Hct (36.0-46.0) % MCV (80-95) fL MCH (27.0-33.0) pg MCHC (32.0-36.0) % RDW (11.7-14.6) % Plt Count (130-400) 10^3/uL MPV (8.0-11.0) fL Immature Gran % Neutrophils % Lymphocytes % Monocytes % Eosinophils % Basophils % Nucleated RBC % % Absolute Neutrophils (1.2-6.7) 10^3/uL Absolute Lymphocytes (1.2-3.4) 10^3/uL Absolute Monocytes (0.1-0.8) 10^3/uL Absolute Eosinophils (0.0-0.7) 10^3/uL Absolute Basophils (0.0-0.2) 10^3/uL PT (9.3-11.0) sec 10.1 INR (0.9-1.1) 1.0 APTT (21.0-27.5) sec 23.3 Sodium (136-145) mmol/L 145 Potassium (3.5-5.1) mmol/L 3.0 L Chloride (98-107) mmol/L 104 Carbon Dioxide (21.0-32.0) mmol/L 28.2 Anion Gap (3-11) mmol/L 12.8 H BUN (7-18) mg/dL 19 H Creatinine (0.55-1.02) mg/dL 0.8 Estimated GFR/1.73 m2 (mL/min/1.73m2) >= 60.00 Glucose (74-106) mg/dL 111 H Calcium (8.5-10.1) mg/dL 8.8 Magnesium (1.8-2.4) mg/dL 1.5 L Total Bilirubin (0.2-1.0) mg/dL 0.7 AST (15-37) U/L 56 H ALT (14-59) U/L 40 Alkaline Phosphatase (46-116) U/L 95 Troponin I (<0.06) ng/mL < 0.05 Total Protein (6.4-8.2) g/dL 6.7 Albumin (3.4-5.0) g/dL 3.4 Lipase (73-393) U/L 49 Urine Color (Yellow) Urine Clarity (Clear) Urine pH (5-8) Ur Specific [place] (1.005-1.025) Urine Protein (Negative) mg/dL Urine Ketones (Negative) mg/dL Urine Blood (Negative) Urine Nitrite (Negative) Urine Bilirubin (Negative) Urine Urobilinogen (Up TO 0.2) EU/dL Ur Leukocyte Esterase (Negative) Urine RBC (0-2) HPF Urine WBC (0-5) HPF Ur Epithelial Cells (Negative) HPF Urine Crystals (Negative) HPF Urine Bacteria (Negative) HPF Urine Casts (Negative) LPF Urine Mucus (Negative) Urine Other (Negative) Ur Culture Indicated? Urine Glucose (Negative) mg/dL Urine Opiates Screen (Negative) Urine Methadone Screen (Negative) Ur Barbiturates Screen (Negative) Ur Tricyclics Screen (Negative) Ur Amphetamines Screen (Negative) U Benzodiazepines Scrn (Negative) Urine Cocaine Screen (Negative) Ur THC Screen (Negative) Ethyl Alcohol (<3) mg/dL 340.6 Range/Units 01/27/21 01/27/21 01/27/21 21:35 22:32 22:32 WBC (4.4-10.8) 10^3/uL 2.89 L RBC (3.93-5.22) 10^6/uL 3.32 L Hgb (11.2-15.7) g/dL 11.1 L Hct (36.0-46.0) % 33.1 L MCV (80-95) fL 99.7 H MCH (27.0-33.0) pg 33.4 H MCHC (32.0-36.0) % 33.5 RDW (11.7-14.6) % 14.0 Plt Count (130-400) 10^3/uL 116 L MPV (8.0-11.0) fL 8.9 Immature Gran % 0.7 Neutrophils % 50.5 Lymphocytes % 38.1 Monocytes % 10.0 Eosinophils % 0.0 Basophils % 0.7 Nucleated RBC % % 0 Absolute Neutrophils (1.2-6.7) 10^3/uL 1.46 Absolute Lymphocytes (1.2-3.4) 10^3/uL 1.10 L Absolute Monocytes (0.1-0.8) 10^3/uL 0.29 Absolute Eosinophils (0.0-0.7) 10^3/uL 0.00 Absolute Basophils (0.0-0.2) 10^3/uL 0.02 PT (9.3-11.0) sec INR (0.9-1.1) APTT (21.0-27.5) sec Sodium (136-145) mmol/L Potassium (3.5-5.1) mmol/L Chloride (98-107) mmol/L Carbon Dioxide (21.0-32.0) mmol/L Anion Gap (3-11) mmol/L BUN (7-18) mg/dL Creatinine (0.55-1.02) mg/dL Estimated GFR/1.73 m2 (mL/min/1.73m2) Glucose (74-106) mg/dL Calcium (8.5-10.1) mg/dL Magnesium (1.8-2.4) mg/dL Total Bilirubin (0.2-1.0) mg/dL AST (15-37) U/L ALT (14-59) U/L Alkaline Phosphatase (46-116) U/L Troponin I (<0.06) ng/mL Total Protein (6.4-8.2) g/dL Albumin (3.4-5.0) g/dL Lipase (73-393) U/L Urine Color (Yellow) Yellow Urine Clarity (Clear) Sl cloudy Urine pH (5-8) 6.0 Ur Specific [place] (1.005-1.025) 1.025 Urine Protein (Negative) mg/dL Trace H Urine Ketones (Negative) mg/dL Negative Urine Blood (Negative) Negative Urine Nitrite (Negative) Positive H Urine Bilirubin (Negative) Negative Urine Urobilinogen (Up TO 0.2) EU/dL 1.0 H Ur Leukocyte Esterase (Negative) Trace H Urine RBC (0-2) HPF Negative Urine WBC (0-5) HPF 5-10 Ur Epithelial Cells (Negative) HPF Rare Urine Crystals (Negative) HPF Negative Urine Bacteria (Negative) HPF Packed Urine Casts (Negative) LPF Negative Urine Mucus (Negative) Trace Urine Other (Negative) Negative Ur Culture Indicated? Yes Urine Glucose (Negative) mg/dL Negative Urine Opiates Screen (Negative) Negative Urine Methadone Screen (Negative) Negative Ur Barbiturates Screen (Negative) Negative Ur Tricyclics Screen (Negative) Negative Ur Amphetamines Screen (Negative) Negative U Benzodiazepines Scrn (Negative) Positive A Urine Cocaine Screen (Negative) Negative Ur THC Screen (Negative) Negative Ethyl Alcohol (<3) mg/dL ECG Data Attestation: I personally reviewed and interpreted this ECG (s) as follows: Interpretation: Please see official report by Dr. Lafleur. Sinus rhythm, prolonged AR interval. Left ventricular hypertrophy. Ventricular of 86. No STEMI. <Wes Dc MD - Last Filed: 01/28/21 06:10> Patient signed out to me pending sobering up and discharged home. In reviewing her laboratory studies is noted that she had urine which was positive for nitrite with white cells no epithelial cells and many bacteria. She was treated with single dose of fosfomycin. She has otherwise been fine overnight. We will arrange for our CT to bring her home. Lab Data Lab results reviewed: Yes I reviewed the patient's lab results. HPI <CELINA Kidd - Last Filed: 01/28/21 16:40> General Mode of arrival: EMS. Date/Time Provider Initiated Documentation: 01/27/21 21:15. Limitations to Documentation: altered mental status. Information obtained by: patient and EMS. HPI Narrative: This is a 75-year-old female with past medical history that includes depression, AMBER, alcohol abuse, alcoholic gastritis without bleeding, anemia, chronic back pain, hypertension osteopenia, pancreatitis, presenting to the ER this evening for evaluation. Patient is a rather vague and poor historian. Apparently she had a mechanical fall prior to arrival, struck her head, unclear whether or not there was an LOC. She was unable to get up off of the floor by herself, she activated her medical alarm. Patient reports headache, facial pain, moderate to severe, and a burn on her right hand that is a few weeks old. She denies any neck pain, chest pain, shortness of breath, abdominal pain, nausea, vomiting, incontinence, numbness, tingling, weakness. Patient admits to alcohol but is unclear exactly what she drank. Patient is unwilling to wear a cervical collar for EMS. Related Data Home Medications Medication Instructions Recorded Confirmed Refresh Plus 1 drp OU Q4H WHILE AWAKE #30 each 06/20/19 01/27/21 magnesium oxide 400 mg PO BID #180 cap 07/17/19 01/27/21 food supplemt, lactose-reduced 414 ml PO DAILY #84563 ml 08/24/19 01/27/21 dicyclomine 10 mg capsule 10 mg PO QID PRN #40 cap 11/06/19 01/27/21 sucralfate 1 gram tablet 1 g PO AC & HS #120 tab 11/06/19 01/27/21 ipratropium 0.5 mg-albuterol 3 mg 3 ml IH QID PRN #90 ml 01/04/20 01/27/21 (2.5 mg base)/3 mL nebulization soln fluticasone propionate 50 1 spray NS daily prn #9.9 ml 03/25/20 01/27/21 mcg/actuation nasal spray,suspension Bio-K plus 1 cap PO DAILY #60 cap 05/12/20 01/27/21 celecoxib 100 mg capsule 100 mg PO BID #60 cap 06/13/20 01/27/21 lifitegrast 5 % eye drops in a 1 drp OPHTHALMIC (EYE) BID 08/05/20 01/27/21 dropperette sennosides [Senokot] 8.6 mg PO PRN PRN 08/08/20 01/27/21 cholestyramine (with sugar) 4 gram 1 pwd PO BID #378 g 08/27/20 01/27/21 oral powder folic acid 1 mg tablet 1 mg PO DAILY #90 tab 09/05/20 01/27/21 gabapentin 300 mg capsule 300 mg PO BID #90 cap 09/05/20 01/27/21 metoprolol tartrate 50 mg tablet 50 mg PO BID #180 tab 09/05/20 01/27/21 multivitamin 1 tab PO DAILY #90 tab 09/05/20 01/27/21 pantoprazole 40 mg tablet,delayed 40 mg PO DAILY #90 tab 09/05/20 01/27/21 release potassium chloride 10 mEq 10 meq PO DAILY #90 tab 09/05/20 01/27/21 tablet,extended release(part/cryst) thiamine HCl (vitamin B1) 100 mg 100 mg PO DAILY #90 tab 09/05/20 01/27/21 tablet venlafaxine 150 mg 150 mg PO DAILY #30 cap 09/05/20 01/27/21 capsule,extended release 24 hr venlafaxine 37.5 mg 37.5 mg PO DAILY #30 cap 09/05/20 01/27/21 capsule,extended release 24 hr doxepin 3 mg tablet 3 mg PO BID PRN #30 tab 10/15/20 01/27/21 hydroxyzine HCl 25 mg tablet 25 mg PO TID PRN #30 tab 10/17/20 01/27/21 Eucerin 0 g TOPICAL TID #1 unit 10/25/20 01/27/21 Restasis 0.4 ml OU BID #10 ea 10/25/20 01/27/21 diphenhydramine HCl 25 mg PO Q4H PRN PRN #20 cap 10/25/20 01/27/21 hydrocortisone 0 g TOPICAL TID #1 applic 10/25/20 01/27/21 amlodipine 5 mg PO DAILY 11/12/20 01/27/21 naltrexone 50 mg PO DAILY 11/12/20 01/27/21 acamprosate 333 mg tablet,delayed 333 mg PO TID #90 tab 11/26/20 01/27/21 release silver sulfadiazine 1 % topical 1 applic TOPICAL DAILY #25 g 01/06/21 01/27/21 cream Previous Rx's Medication Instructions Recorded Refresh Plus 1 drp OU Q4H WHILE AWAKE #30 each 06/20/19 magnesium oxide 400 mg PO BID #180 cap 07/17/19 food supplemt, lactose-reduced 414 ml PO DAILY #97517 ml 08/24/19 dicyclomine 10 mg capsule 10 mg PO QID PRN #40 cap 11/06/19 sucralfate 1 gram tablet 1 g PO AC & HS #120 tab 11/06/19 ipratropium 0.5 mg-albuterol 3 mg 3 ml IH QID PRN #90 ml 01/04/20 (2.5 mg base)/3 mL nebulization soln fluticasone propionate 50 1 spray NS daily prn #9.9 ml 03/25/20 mcg/actuation nasal spray,suspension Bio-K plus 1 cap PO DAILY #60 cap 05/12/20 celecoxib 100 mg capsule 100 mg PO BID #60 cap 06/13/20 cholestyramine (with sugar) 4 gram 1 pwd PO BID #378 g 08/27/20 oral powder folic acid 1 mg tablet 1 mg PO DAILY #90 tab 09/05/20 gabapentin 300 mg capsule 300 mg PO BID #90 cap 09/05/20 metoprolol tartrate 50 mg tablet 50 mg PO BID #180 tab 09/05/20 multivitamin 1 tab PO DAILY #90 tab 09/05/20 pantoprazole 40 mg tablet,delayed 40 mg PO DAILY #90 tab 09/05/20 release potassium chloride 10 mEq 10 meq PO DAILY #90 tab 09/05/20 tablet,extended release(part/cryst) thiamine HCl (vitamin B1) 100 mg 100 mg PO DAILY #90 tab 09/05/20 tablet venlafaxine 150 mg 150 mg PO DAILY #30 cap 09/05/20 capsule,extended release 24 hr venlafaxine 37.5 mg 37.5 mg PO DAILY #30 cap 09/05/20 capsule,extended release 24 hr doxepin 3 mg tablet 3 mg PO BID PRN #30 tab 10/15/20 hydroxyzine HCl 25 mg tablet 25 mg PO TID PRN #30 tab 10/17/20 Eucerin 0 g TOPICAL TID #1 unit 10/25/20 Restasis 0.4 ml OU BID #10 ea 10/25/20 diphenhydramine HCl 25 mg PO Q4H PRN PRN #20 cap 10/25/20 hydrocortisone 0 g TOPICAL TID #1 applic 10/25/20 acamprosate 333 mg tablet,delayed 333 mg PO TID #90 tab 11/26/20 release silver sulfadiazine 1 % topical 1 applic TOPICAL DAILY #25 g 01/06/21 cream Allergies Allergy/AdvReac Type Severity Reaction Status Date / Time Penicillins Allergy Mild Rash Verified 01/27/21 21:59 ramipril Allergy Unknown ITCHING Verified 01/27/21 21:59 meperidine [From Demerol] AdvReac Severe Nausea Verified 01/27/21 21:59 bupropion AdvReac Mild GI upset Verified 01/27/21 21:59 AMBER Inhibitors AdvReac Unknown COUGH Verified 01/27/21 21:59 alendronate sodium AdvReac Unknown GI Distress Verified 01/27/21 21:59 clarithromycin AdvReac Unknown intolerant Verified 01/27/21 21:59 paroxetine AdvReac Unknown Diarrhea Verified 01/27/21 21:59 General Stated Complaint: Trauma JORDAN: 3 Review of Systems <CELINA Kidd - Last Filed: 01/28/21 16:40> Constitutional Constitutional: Denies fatigue, Denies fever(s), Reports headache(s) and Denies weakness Eyes Eyes: Denies change in vision ENT Ears, Nose, Mouth, and Throat: Reports headache(s) and Denies neck pain Cardiovascular Cardiovascular: Denies chest pain and Denies dyspnea Respiratory Respiratory: Denies cough and Denies dyspnea Gastrointestinal Gastrointestinal: Denies abdominal pain, Denies nausea and Denies vomiting Genitourinary Genitourinary: Denies dysuria Musculoskeletal Musculoskeletal: Reports back pain (Chronic), Denies neck pain and Denies tingling Integumentary/Breasts Skin/Breast: Denies rash Neurologic Neurologic: Reports headache(s), Denies tingling and Denies weakness Endocrine Endocrine: Denies fatigue Hematologic/Lymphatic Hematologic/Lymphatic: Reports easy bleeding and Reports easy bruising PFSH <CELINA Kidd - Last Filed: 01/28/21 16:40> Medical History Adjustment disorder with depressed mood AMBER (acute kidney injury) Alcohol abuse Alcoholic gastritis without bleeding Alcoholic ketosis Allergic rhinitis Anemia (12/20/16) Back pain, chronic Calcific tendinitis of left shoulder CAP (community acquired pneumonia) Cataract (11/07/15) Cervical radicular pain neck pain and [facility] 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) pls refrain from alcohol Chronic alcoholism she will not stop drinking unless she checks with me, so that we can help her avert withdrawal I do not think she is capable on her own--she would need placement to achieve required goal of 3 months of sobriety Chronic diarrhea Closed displaced fracture of proximal phalanx of right index finger with routine healing (06/03/17) Closed right humeral fracture Contusion of left little finger Corneal ulcer, right (~08/23/18) 08/23/18; [id number] Dehydration Depression Diarrhea Discharge planning issues DVT prophylaxis Dystrophic nail Elev transaminase/LDH due to alcohol Epigastric abdominal pain Fall as cause of accidental injury at home as place of occurrence Genital herpes simplex recurrent gential; suppressive Valtrex GERD (gastroesophageal reflux disease) GI bleed (12/20/16) Head contusion Headache History of alcohol abuse Humerus fracture (09/12/19) Right Hyperlipidemia Hypertension Incidental lung nodule, greater than or equal to 8mm 1cm, spiculated, stable for many years, recommend f/u in 6 mo Macrocytosis (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 Multiple rib fractures 03/11/19 [facility] Nausea and vomiting in adult Non-cardiac chest pain [place]09/21/16[place] [facility] [place] [facility] [place]IVE MP Osteoarthritis Osteopenia Palliative care patient (03/21/17) Pancreatitis, alcoholic, acute Peripheral edema Pleural effusion on left 03/11/19 [facility] Presacral mass (~09/15/18) 09/15/18 [facility] Right rib fracture Sacral mass Sciatica right, epidural injuections [facility] Tendinitis of left rotator cuff Tubular adenoma of colon (01/28/17) Urinary incontinence 01[place]24[place] [facility] [place] [facility] [place] UTI (urinary tract infection) 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 Bladder repair. Ligation of fallopian tube Repair bladder injury, simple Family History Mother No problems noted. Father , DROWNED at age 50. No problems noted. Sister Personal history of malignant neoplasm MELANOMA Sister No problems noted. Grandfather Personal history of malignant neoplasm STOMACH Grandfather Personal history of malignant neoplasm PROSTATE Grandmother Heart disease [place] Acute ill-defined cerebrovascular disease Grandmother Personal history of malignant neoplasm UTERINE Aunt , [place] Heart disease [place] Aunt , [place] Heart disease Brother No problems noted. Social History Smoking/Tobacco Use Status: Former Tobacco Use Quit Date: 08/05/20 Smoking risk assessment performed?: Yes Alcohol Intake: current Alcohol Intake frequency: 3 or more drinks per day Alcohol type: hard liquor Drug use: Never Substance use type: does not use Current gender identity: female Do you feel safe at home: Yes Do you feel safe in your relationship?: Yes Additional Social history: Unable to obtain any history r/t patients alcohol consumption Exam <CELINA Kidd - Last Filed: 01/28/21 16:40> Const General: disheveled and ill appearing chronically Orientation: alert, awake, oriented to person and oriented to place HENCO Head: normal to inspection, no palpable skull fracture, normocephalic and atraumatic Ears: external ears normal, TM's normal bilaterally and EAC's normal Face images: 1. 0.5 cm well approximated, laceration. No active bleeding. 2. Impressive diffuse swelling, tenderness, ecchymosis. There is swelling of both her upper and lower lip along the right lateral aspect. There is an abrasion to her inferior lip. Mouth: moist mucous membranes Throat: posterior oropharynx normal Eyes Alignment and Position: alignment normal Conjunctivae: conjunctivae normal Sclera: sclerae normal Cornea: corneas normal Pupils: PERRL EOM: EOM intact bilaterally Direct ophthalmoscopy: normal light reflex Other: Right eyelid with diffuse mild swelling and ecchymosis. Patient is able to open her lid, it is not swollen shut. Neck Neck: normal visual inspection, trachea midline, supple, nontender and other (Patient agreeable to placing a hard c-collar) Chest Chest: normal inspection of the chest and normal palpation of entire chest wall Resp Effort & Inspection: normal respiratory effort and able to speak in complete sentences Auscultation: diminished lung sounds bilaterally in the lower lung gatica Cardio Rate: regular rate Rhythm: regular rhythm GI Palpation: soft and nontender Back/Spine/Pelvis Other: While maintaining C-spine precautions, patient was logrolled to her left. Back was visualized, unremarkable. Nontender. Without erythema, ecchymosis, midline point tenderness or any tenderness for that matter. Skin General skin exam: no rashes or lesions noted Neuro General: patient alert, patient awake, oriented Patient Orientation: Person and Place, moves all extremities and no focal motor deficits Motor: muscle tone normal throughout and strength 5/5 throughout Sensory Exam: no sensory deficits noted Extrem General: normal to inspection, full ROM and capillary refill normal Psych Appearance: grossly normal Mental Status: mental status grossly normal Course <CELINA Kidd - Last Filed: 01/28/21 16:40> Vital Signs Vital signs: Vital Signs Temperature 36.6 C 01/27/21 21:12 Pulse 88 01/27/21 21:12 Respiratory Rate 16 01/27/21 21:12 Pulse Oximetry 99 01/27/21 21:12 Temperature 36.6 C 01/27/21 21:12 Temperature Source Skin 01/27/21 21:12 Pulse 88 01/27/21 21:12 Respiratory Rate 16 01/27/21 21:12 Respiratory Effort Non-Labored 01/27/21 21:15 Respiratory Depth Normal 01/27/21 21:15 Respiratory Pattern Normal 01/27/21 21:15 Blood Pressure Position Supine 01/27/21 21:12 Pulse Oximetry 99 01/27/21 21:12 Oxygen Delivery Method Room Air 01/27/21 21:12 Oxygen Flow Rate 0 01/27/21 21:12 Pain Level 6 01/27/21 21:12 Sign Out <CELINA Kidd - Last Filed: 01/28/21 16:40> Sign Out Data: Sign Out Comment: Mechanical fall, EtOH of 340. CT imaging of face reveals acute comminuted minimally displaced right anterior maxillary wall fracture. Head and C-spine unremarkable. Placed on the ENT list. Baseline anemia. Post potassium and magnesium replenished. Awaiting sobriety and disposition. Last updated by Gwyn Sandoval PA at 01/27/21 23:44
[2021-01-27 21:46] LABS: Abs Immature Grans 0.02 10^3/uL (0.0-0.06); Absolute Basophil Count 0.02 10^3/uL (0.0-0.2); Absolute Monocyte Count 0.29 10^3/uL (0.1-0.8); Absolute Neutrophil Count 1.46 10^3/uL (1.2-6.7); Basophils % 0.7; HCT 33.1 % (36.0-46.0); HGB 11.1 g/dL (11.2-15.7); Immature Grans % 0.7; Lymphocytes % 38.1; MCH 33.4 pg (27.0-33.0); MCHC 33.5 % (32.0-36.0); MCV 99.7 fL (80-95); MPV 8.9 fL (8.0-11.0); Neutrophils % 50.5; Nucleated RBC 0 %; Platelet Count 116 10^3/uL (130-400); RBC 3.32 10^6/uL (3.93-5.22); RDW-SD 51.3 fL; WBC 2.89 10^3/uL (4.4-10.8)
[2021-01-27 22:00] LABS: Lipase 49 U/L (73-393); Magnesium 1.5 mg/dL (1.8-2.4)
[2021-01-27 22:01] LABS: ETHANOL BLOOD 340.6 mg/dL (<3)
[2021-01-27 22:02] LABS: ALT 40 U/L (14-59); AST 56 U/L (15-37); Albumin 3.4 g/dL (3.4-5.0); Alkaline Phosphatase 95 U/L (46-116); Anion Gap 12.8 mmol/L (3-11); BUN 19 mg/dL (7-18); Bilirubin, Total 0.7 mg/dL (0.2-1.0); CO2 28.2 mmol/L (21.0-32.0); CREATININE 0.8 mg/dL (0.55-1.02); Calcium 8.8 mg/dL (8.5-10.1); Chloride 104 mmol/L (98-107); Glucose 111 mg/dL (74-106); Sodium 145 mmol/L (136-145); Total Protein 6.7 g/dL (6.4-8.2)
[2021-01-27 22:04] LABS: Troponin I < 0.05 ng/mL (<0.06)
[2021-01-27 22:11] LABS: PTT Activated 23.3 sec (21.0-27.5); Prothrombin Time 10.1 sec (9.3-11.0)
[2021-01-27 22:41] LABS: Bilirubin Negative (Negative); Blood Negative (Negative); Clarity Sl Cloudy (Clear); Glucose Negative (Negative); Ketones Negative (Negative); Leukocyte Esterase Trace (Negative); Nitrite Positive (Negative); Specific Gravity 1.025 (1.005-1.025)
[2021-01-27 22:52] LABS: *AMPHETAMINES SCREEN URINE Negative (Negative); *BARBITURATES SCREEN URINE Negative (Negative); *BENZODIAZEPINES SCREEN URINE Positive (Negative); Bacteria Packed HPF (Negative); C & S Indicated? Yes; Cannabinoids THC Negative (Negative); Casts Negative LPF (Negative); Cocaine Screen,Urine Negative (Negative); Crystals Negative HPF (Negative); Epithelial Cells Rare HPF (Negative); METHADONE URINE SCREEN Negative (Negative); Mucus Trace (Negative); OPIATES URINE SCREEN Negative (Negative); Other Cells Negative (Negative); RBC Negative HPF (0-2)
[2021-01-27 22:53] LABS: Tricyclic Antidepressants Negative (Negative)
--- NOTE | 2021-01-27 23:00 | DI.VRAD_ITS ---
PROCEDURE INFORMATION: Exam: CT Head Without Contrast Exam date and time: 01/27/2021 9:23 PM Age: 75 years old Clinical indication: Other: Fall/trauma TECHNIQUE: Imaging protocol: Computed tomography of the head without contrast. COMPARISON: CT HEAD CERVICAL SPINE WO 12/26/2020 9:30 PM FINDINGS: Similar cerebral volume loss similar burden nonspecific white matter disease. No convincing evidence of acute infarct. No acute intracranial hemorrhage. Similar configuration of the ventricles. Vascular calcifications. Face dictated separately. Please see the associated report. Vascular calcifications. impression: No acute intracranial findings. PROCEDURE INFORMATION: Exam: CT Maxillofacial Without Contrast Exam date and time: 01/27/2021 9:23 PM Age: 75 years old Clinical indication: Other: Fall/trauma TECHNIQUE: Imaging protocol: Computed tomography images of the face without contrast. Radiation optimization: All CT scans at this facility use at least one of these dose optimization techniques: automated exposure control; mA and/or kV adjustment per patient size (includes targeted exams where dose is matched to clinical indication); or iterative reconstruction. COMPARISON: CT HEAD CERVICAL SPINE WO 12/26/2020 9:30 PM FINDINGS: Large soft tissue contusion/injury right face including right periorbital region. There is evidence of presumably traumatic subcutaneous emphysema. There is a right-sided lens extraction. Globes intact. There is minimal irregularity along the right inferior orbital wall. Image 51 series 11. Not convincing for fracture and appears to have been present on prior study. There is a slightly depressed comminuted appearing fracture along the anterior maxillary wall however. Images 97 through 110 series 10. Layering blood within the right maxillary sinus. Minimal mucosal thickening ethmoid air cells. Mastoid air cells appear clear. There is no other definite acute fracture or dislocation. Evaluation limited by osteopenia and metallic artifact from dental hardware and or fillings. Nasal bone fractures appear to have been present on prior study. Impression: Prominent soft tissue injury to the face with depressed acute comminuted minimally displaced right anterior maxillary wall fracture. PROCEDURE INFORMATION: Exam: CT Cervical Spine Without Contrast Exam date and time: 01/27/2021 9:23 PM Age: 75 years old Clinical indication: Other: Fall/trauma TECHNIQUE: Imaging protocol: Computed tomography images of the cervical spine without contrast. Radiation optimization: All CT scans at this facility use at least one of these dose optimization techniques: automated exposure control; mA and/or kV adjustment per patient size (includes targeted exams where dose is matched to clinical indication); or iterative reconstruction. COMPARISON: CT HEAD CERVICAL SPINE WO 12/26/2020 9:30 PM , CT chest abdomen pelvis 12/13/2020 FINDINGS: There is a spiculated appearing lesion redemonstrated at the right lung apex measuring up to 1.1 cm. Image 58 series 14. Evaluation mildly limited by motion. Mild atelectasis and/or scarring lung apices. Vascular calcifications. Limited evaluation cervical soft tissues unremarkable. Please note that exam degraded by motion. Chronic appearing right posterior 4th rib fracture incompletely imaged. There is no evidence of cervical vertebral body height loss. Alignment and bony degenerative changes of the cervical spine are similar to prior. IMPRESSION: No acute fracture or dislocation of the cervical spine. Dictated and Authenticated by: Edilberto Grijalva MD. Ordering:MOUNA Pascal MD
--- NOTE | 2021-01-27 23:33 | DI.VRAD_ITS ---
PROCEDURE INFORMATION: Exam: XR Pelvis Exam date and time: 01/27/2021 10:18 PM Age: 75 years old Clinical indication: Other: Trauma TECHNIQUE: Imaging protocol: XR pelvis. Views: 1 or 2 view. Total images: 1 COMPARISON: CR XR PELVIS AP 12/26/2020 10:53 PM FINDINGS: Bones/joints: Osteopenia. No fractures are identified. SI joints and pubic symphysis demonstrate no evidence of traumatic diastasis. Soft tissues: No gross soft tissue abnormalities. IMPRESSION: 1. No acute findings. No significant change from 12/26/2020. 2. Osteopenia. Dictated and Authenticated by: Clarence Phipps MD. Ordering:MOUNA Pascal MD
--- NOTE | 2021-01-27 23:37 | DI.VRAD_ITS ---
PROCEDURE INFORMATION: Exam: XR Chest Exam date and time: 01/27/2021 10:18 PM Age: 75 years old Clinical indication: Other: Trauma TECHNIQUE: Imaging protocol: XR of the chest. Views: 1 view. Total images: 1 COMPARISON: CR XR CHEST 1V IN DI DEPT 12/26/2020 10:55 PM FINDINGS: Lungs: Pulmonary vasculature grossly normal. No gross pulmonary infiltrates. Pleural spaces: No pleural effusion. No pneumothorax. Heart/Mediastinum: Mild cardiomegaly. No tracheal/mediastinal shift. Vasculature: Mild aortic ectasia/tortuosity. Bones/joints: No acute osseous abnormalities are identified. Osteopenia. Chronic fractures of the right posterior 5th rib and numerous left posterolateral ribs grossly unchanged from 12/26/2020. Chronic fracture of the distal left clavicle unchanged. IMPRESSION: 1. No acute findings. No significant change from 12/26/2020. 2. Mild cardiomegaly without evidence of decompensation. 3. Osteopenia and chronic fractures of multiple bilateral ribs and the distal left clavicle unchanged. Dictated and Authenticated by: Clarence Phipps MD. Ordering:MOUNA Pascal MD
--- NOTE | 2021-01-27 23:42 | NUR.NOTE ---
Referral faxed to ENT for within a week follow up maxillary fx.Nursing Note:
[2021-01-27] MEDS: POTASSIUM CHLORIDE 20 MEQ/100 ML BAG 50 MEQ IVPB (23:53)
[2021-01-27] MEDS: MAGNESIUM SULFATE 1 GM/100 ML BAG IVPB (23:53)
[2021-01-27] MEDS: Potassium Chloride 20 MEQ TABCR 40 MEQ PO (23:54)
[2021-01-27] MEDS: Normal Saline 1,000 ML 1000 ML IV (23:55)
[2021-01-28] VITALS (48 sets, daily range): BP systolic 145–169; BP diastolic 72–88; PULSE 99–118; RESP 13–23; O2SAT 93–99
[2021-01-28] MEDS: Fosfomycin Tromethamine 3 GM PACKET PO (00:50)
== END 2021-01-28 06:59 | disposition home or self-care (01) ==
PROVIDERS: Physician Assistant; Emergency Provider Emergency Medicine; PCP Family Medicine
DX: S02.40CA Maxillary fracture, right side, initial encounter for closed fracture (principal); E87.6 Hypokalemia; S01.81XA Laceration without foreign body of other part of head, initial encounter; W19.XXXA Unspecified fall, initial encounter; E83.42 Hypomagnesemia; F10.220 Alcohol dependence with intoxication, uncomplicated; Y90.8 Blood alcohol level of 240 mg/100 ml or more
CPT/HCPCS: 36415; 80053; 80307; 83690; 87077; 93005; 96361; 96365; 96366; 96368; 99285; 70450; 70486; 71045; 72125; 72170; 80320; 81003; 81015; 83735; 84484; 85025; 85610; 85730; 87086; 87186; 93010; J3475; J3480; J3490

== ENCOUNTER 2021-02-05 07:09 | Emergency (ER) | payer OTHER, SELFPAY ==
[2021-02-05 07:09] VITALS: BP 183/96; PULSE 97; RESP 16; TEMP 36.6; O2SAT 93
--- NOTE | 2021-02-05 07:15 | DI.RAD_ITS ---
Exam(s) XR HUMERUS RT EXAM: XR HUMERUS RT CLINICAL HISTORY: fall, etoh, right humerus bruising. TECHNIQUE: 2D digital imaging was performed. COMPARISON: CR,XR XR FOREARM RT from 11/08/2020 CR XR SHOULDER RT COMPLETE 2+V from 12/16/2020 FINDINGS: There has been no change in the appearance of the humeral head fracture. There is stable deformity o f the distal clavicle. No acute fracture or dislocation is seen. The elbow is unremarkable as visua lized. IMPRESSION: Old fractures. No acute abnormality. DATA REPOSITORY: RADIATION DOSE DELIVERED:
--- NOTE | 2021-02-05 07:17 | W.ED.GENAD ---
Discharge Plan Disposition Patient Disposition: HOME Condition: Stable Discharge Details Clinical Impression: Acute alcoholism Primary Care Provider: Lavelle Galindo ED Provider: Moose Lafleur Home Meds and New Rx's Prescriptions: Continued Xiidra 5 % dropperette 1 drp ophthalmic (eye) BID RF: 0 acamprosate 333 mg tablet,delayed release (DR/EC) 333 mg PO TID Qty: 90 RF: 2 magnesium oxide 400 mg magnesium capsule 400 mg PO BID Qty: 180 RF: 3 celecoxib [Celebrex] 100 mg capsule 100 mg PO BID Qty: 60 RF: 2 cholestyramine (with sugar) 4 gram powder 1 pwd PO BID Qty: 378 RF: 0 Ensure Active High Protein Liquid 414 ml PO DAILY Qty: 09822 RF: 11 dicyclomine 10 mg capsule 10 mg PO QID PRN (Reason: belly pain) Qty: 40 RF: 0 sucralfate 1 gram tablet 1 g PO AC & HS Qty: 120 RF: 5 ipratropium-albuterol 0.5 mg-3 mg(2.5 mg base)/3 mL solution for nebulization 3 ml IH QID PRN (Reason: shortness of breath) Qty: 90 RF: 3 fluticasone propionate 50 mcg/actuation spray,suspension 1 spray NS daily prn Qty: 9.9 RF: 2 gabapentin 300 mg capsule 300 mg PO BID Qty: 90 RF: 5 metoprolol tartrate 50 mg tablet 50 mg PO BID Qty: 180 RF: 3 multivitamin [Multiple Vitamins] Tablet 1 tab PO DAILY Qty: 90 RF: 3 pantoprazole 40 mg tablet,delayed release (DR/EC) 40 mg PO DAILY Qty: 90 RF: 3 potassium chloride [Klor-Con M10] 10 mEq tablet,ER particles/crystals 10 meq PO DAILY Qty: 90 RF: 3 venlafaxine 37.5 mg capsule,extended release 24hr 37.5 mg PO DAILY Qty: 30 RF: 11 venlafaxine 150 mg capsule,extended release 24hr 150 mg PO DAILY Qty: 30 RF: 11 thiamine HCl (vitamin B1) 100 mg tablet 100 mg PO DAILY Qty: 90 RF: 3 folic acid 1 mg tablet 1 mg PO DAILY Qty: 90 RF: 3 doxepin 3 mg tablet 3 mg PO BID PRN (Reason: itch) Qty: 30 RF: 0 hydroxyzine HCl 25 mg tablet 25 mg PO TID PRN (Reason: itching) Qty: 30 RF: 2 silver sulfadiazine [Silvadene] 1 % cream 1 applic topical DAILY Qty: 25 RF: 1 ondansetron 4 mg tablet,disintegrating 4 mg PO Q8H PRN (Reason: nausea and vomiting) Qty: 20 RF: 0 Refresh Plus 0.5 % Dropperette 1 drp OU Q4H WHILE AWAKE Qty: 30 RF: 0 diphenhydramine HCl 25 mg Capsule 25 mg PO Q4H PRN PRNQty: 20 RF: 0 Restasis 0.05 % Dropperette 0.4 ml OU BID Qty: 10 RF: 0 hydrocortisone 1 % Cream 0 g topical TID Qty: 1 RF: 2 Eucerin Cream 0 g topical TID Qty: 1 RF: 1 Bio-K plus 50 billion cell Capsule,Delayed Release(Dr/Ec) 1 cap PO DAILY Qty: 60 RF: 0 sennosides [Senokot] 8.6 mg tablet 8.6 mg PO PRN PRNRF: 0 naltrexone 50 mg tablet 50 mg PO DAILY RF: 0 amlodipine 5 mg tablet 5 mg PO DAILY RF: 0 Discharge Instructions Instructions: Alcohol Intoxication (ED) Additional Instructions: You need to reduce your use of alcohol. The CAT scan and x-ray of your shoulder did not show any new injuries. Please follow-up with your regular doctor for routine care. Medical Decision Making <Paul Chavira, - Last Filed: 02/05/21 07:28> 75-year-old female with a past medical history of notable alcoholism chronically, multiple falls, recent fall 1 week ago causing a right maxillary sinus fracture, presents today via EMS for fall. EMS was called after the patient had fallen and could not get up. She admits to a night of drinking. Upon EMS arrival the patient was notably confrontational and unwilling to wear the c-collar. She did have bruising over her face and arm which is from her recent fall a week ago. Patient is a notably challenging historian, and aside for informing us that she has been drinking does not give any additional historical components. She does admit to pain in her right middle finger secondary to a small burn, but denies any other complaints currently. No other known known historical components at this time. Physical exam demonstrates notable bruising over the patient's right face which I suspect has a chronic component of her with her new fall today I do feel that imaging is certainly indicated of the head neck. There is notable bruising over her right humerus, suspect this is old as well. Is noticed appear to be significant tenderness in this area, however again with her limited historical component secondary to her intoxicated state we will get an x-ray of this area as well. We will gently rehydrate, monitor closely and reassess. Patient will be signed out to my colleague Dr. Moose Lafleur for follow-up on imaging and reassessment. <Moose Lafleur MD - Last Filed: 02/05/21 10:26> Received signout from Dr. Chavira. Patient underwent imaging studies which showed no acute findings. She is intoxicated as is her typical finding. Clinically she had improvement, became more alert and interactive with the nursing staff. HPI <Paul Chavira DO - Last Filed: 02/05/21 07:28> General Date/Time Provider Initiated Documentation: 02/05/21 07:13. HPI Narrative: 75-year-old female with a past medical history of notable alcoholism chronically, multiple falls, recent fall 1 week ago causing a right maxillary sinus fracture, presents today via EMS for fall. EMS was called after the patient had fallen and could not get up. She admits to a night of drinking. Upon EMS arrival the patient was notably confrontational and unwilling to wear the c-collar. She did have bruising over her face and arm which is from her recent fall a week ago. Patient is a notably challenging historian, and aside for informing us that she has been drinking does not give any additional historical components. She does admit to pain in her right middle finger secondary to a small burn, but denies any other complaints currently. No other known known historical components at this time. Related Data Home Medications Medication Instructions Recorded Confirmed Refresh Plus 1 drp OU Q4H WHILE AWAKE #30 each 06/20/19 01/27/21 magnesium oxide 400 mg PO BID #180 cap 07/17/19 01/27/21 food supplemt, lactose-reduced 414 ml PO DAILY #57979 ml 08/24/19 01/27/21 dicyclomine 10 mg capsule 10 mg PO QID PRN #40 cap 11/06/19 01/27/21 sucralfate 1 gram tablet 1 g PO AC & HS #120 tab 11/06/19 01/27/21 ipratropium 0.5 mg-albuterol 3 mg 3 ml IH QID PRN #90 ml 01/04/20 01/27/21 (2.5 mg base)/3 mL nebulization soln fluticasone propionate 50 1 spray NS daily prn #9.9 ml 03/25/20 01/27/21 mcg/actuation nasal spray,suspension Bio-K plus 1 cap PO DAILY #60 cap 05/12/20 01/27/21 celecoxib 100 mg capsule 100 mg PO BID #60 cap 06/13/20 01/27/21 lifitegrast 5 % eye drops in a 1 drp OPHTHALMIC (EYE) BID 08/05/20 01/27/21 dropperette sennosides [Senokot] 8.6 mg PO PRN PRN 08/08/20 01/27/21 cholestyramine (with sugar) 4 gram 1 pwd PO BID #378 g 08/27/20 01/27/21 oral powder folic acid 1 mg tablet 1 mg PO DAILY #90 tab 09/05/20 01/27/21 gabapentin 300 mg capsule 300 mg PO BID #90 cap 09/05/20 01/27/21 metoprolol tartrate 50 mg tablet 50 mg PO BID #180 tab 09/05/20 01/27/21 multivitamin 1 tab PO DAILY #90 tab 09/05/20 01/27/21 pantoprazole 40 mg tablet,delayed 40 mg PO DAILY #90 tab 09/05/20 01/27/21 release potassium chloride 10 mEq 10 meq PO DAILY #90 tab 09/05/20 01/27/21 tablet,extended release(part/cryst) thiamine HCl (vitamin B1) 100 mg 100 mg PO DAILY #90 tab 09/05/20 01/27/21 tablet venlafaxine 150 mg 150 mg PO DAILY #30 cap 09/05/20 01/27/21 capsule,extended release 24 hr venlafaxine 37.5 mg 37.5 mg PO DAILY #30 cap 09/05/20 01/27/21 capsule,extended release 24 hr doxepin 3 mg tablet 3 mg PO BID PRN #30 tab 10/15/20 01/27/21 hydroxyzine HCl 25 mg tablet 25 mg PO TID PRN #30 tab 10/17/20 01/27/21 Eucerin 0 g TOPICAL TID #1 unit 10/25/20 01/27/21 Restasis 0.4 ml OU BID #10 ea 10/25/20 01/27/21 diphenhydramine HCl 25 mg PO Q4H PRN PRN #20 cap 10/25/20 01/27/21 hydrocortisone 0 g TOPICAL TID #1 applic 10/25/20 01/27/21 amlodipine 5 mg PO DAILY 11/12/20 01/27/21 naltrexone 50 mg PO DAILY 11/12/20 01/27/21 acamprosate 333 mg tablet,delayed 333 mg PO TID #90 tab 11/26/20 01/27/21 release silver sulfadiazine 1 % topical 1 applic TOPICAL DAILY #25 g 01/06/21 01/27/21 cream ondansetron 4 mg disintegrating 4 mg PO Q8H PRN #20 tab 01/30/21 tablet Previous Rx's Medication Instructions Recorded Refresh Plus 1 drp OU Q4H WHILE AWAKE #30 each 06/20/19 magnesium oxide 400 mg PO BID #180 cap 07/17/19 food supplemt, lactose-reduced 414 ml PO DAILY #49676 ml 08/24/19 dicyclomine 10 mg capsule 10 mg PO QID PRN #40 cap 11/06/19 sucralfate 1 gram tablet 1 g PO AC & HS #120 tab 11/06/19 ipratropium 0.5 mg-albuterol 3 mg 3 ml IH QID PRN #90 ml 01/04/20 (2.5 mg base)/3 mL nebulization soln fluticasone propionate 50 1 spray NS daily prn #9.9 ml 03/25/20 mcg/actuation nasal spray,suspension Bio-K plus 1 cap PO DAILY #60 cap 05/12/20 celecoxib 100 mg capsule 100 mg PO BID #60 cap 06/13/20 cholestyramine (with sugar) 4 gram 1 pwd PO BID #378 g 08/27/20 oral powder folic acid 1 mg tablet 1 mg PO DAILY #90 tab 09/05/20 gabapentin 300 mg capsule 300 mg PO BID #90 cap 09/05/20 metoprolol tartrate 50 mg tablet 50 mg PO BID #180 tab 09/05/20 multivitamin 1 tab PO DAILY #90 tab 09/05/20 pantoprazole 40 mg tablet,delayed 40 mg PO DAILY #90 tab 09/05/20 release potassium chloride 10 mEq 10 meq PO DAILY #90 tab 09/05/20 tablet,extended release(part/cryst) thiamine HCl (vitamin B1) 100 mg 100 mg PO DAILY #90 tab 09/05/20 tablet venlafaxine 150 mg 150 mg PO DAILY #30 cap 09/05/20 capsule,extended release 24 hr venlafaxine 37.5 mg 37.5 mg PO DAILY #30 cap 09/05/20 capsule,extended release 24 hr doxepin 3 mg tablet 3 mg PO BID PRN #30 tab 10/15/20 hydroxyzine HCl 25 mg tablet 25 mg PO TID PRN #30 tab 10/17/20 Eucerin 0 g TOPICAL TID #1 unit 10/25/20 Restasis 0.4 ml OU BID #10 ea 10/25/20 diphenhydramine HCl 25 mg PO Q4H PRN PRN #20 cap 10/25/20 hydrocortisone 0 g TOPICAL TID #1 applic 10/25/20 acamprosate 333 mg tablet,delayed 333 mg PO TID #90 tab 11/26/20 release silver sulfadiazine 1 % topical 1 applic TOPICAL DAILY #25 g 01/06/21 cream ondansetron 4 mg disintegrating 4 mg PO Q8H PRN #20 tab 01/30/21 tablet Allergies Allergy/AdvReac Type Severity Reaction Status Date / Time Penicillins Allergy Mild Rash Verified 02/05/21 07:19 ramipril Allergy Unknown ITCHING Verified 02/05/21 07:19 meperidine [From Demerol] AdvReac Severe Nausea Verified 02/05/21 07:19 bupropion AdvReac Mild GI upset Verified 02/05/21 07:19 AMBER Inhibitors AdvReac Unknown COUGH Verified 02/05/21 07:19 alendronate sodium AdvReac Unknown GI Distress Verified 02/05/21 07:19 clarithromycin AdvReac Unknown intolerant Verified 02/05/21 07:19 paroxetine AdvReac Unknown Diarrhea Verified 02/05/21 07:19 General Stated Complaint: Trauma JORDAN: 3 Review of Systems <Paul Chavira DO - Last Filed: 02/05/21 07:28> All systems reviewed & are unremarkable except as noted in HPI and below PFSH <Paul Chavira DO - Last Filed: 02/05/21 07:28> Medical History Adjustment disorder with depressed mood AMBER (acute kidney injury) Alcohol abuse Alcoholic gastritis without bleeding Alcoholic ketosis Allergic rhinitis Anemia (12/20/16) Back pain, chronic Calcific tendinitis of left shoulder CAP (community acquired pneumonia) Cataract (11/07/15) Cervical radicular pain neck pain and [facility] 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) pls refrain from alcohol Chronic alcoholism she will not stop drinking unless she checks with me, so that we can help her avert withdrawal I do not think she is capable on her own--she would need placement to achieve required goal of 3 months of sobriety Chronic diarrhea Closed displaced fracture of proximal phalanx of right index finger with routine healing (06/03/17) Closed right humeral fracture Contusion of left little finger Corneal ulcer, right (~08/23/18) 08/23/18; [facility] Dehydration Depression Diarrhea Discharge planning issues DVT prophylaxis Dystrophic nail Elev transaminase/LDH due to alcohol Epigastric abdominal pain Fall as cause of accidental injury at home as place of occurrence Genital herpes simplex recurrent gential; suppressive Valtrex GERD (gastroesophageal reflux disease) GI bleed (12/20/16) Head contusion Headache History of alcohol abuse Humerus fracture (09/12/19) Right Hyperlipidemia Hypertension Incidental lung nodule, greater than or equal to 8mm 1cm, spiculated, stable for many years, recommend f/u in 6 mo Macrocytosis (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 Multiple rib fractures 03/11/19 [facility] Nausea and vomiting in adult Non-cardiac chest pain (09/21/16) [facility] 09/21/16 NEGATIVE MP Osteoarthritis Osteopenia Palliative care patient (03/21/17) Pancreatitis, alcoholic, acute Peripheral edema Pleural effusion on left 03/11/19 [facility] Presacral mass (~09/15/18) 09/15/18 [facility] Right rib fracture Sacral mass Sciatica right, epidural injuections [facility] Tendinitis of left rotator cuff Tubular adenoma of colon (01/28/17) Urinary incontinence 01/24/13 urethral suspension and sling at [facility] (bladder suspension 1991) UTI (urinary tract infection) Vision loss of right eye 08/17/18;[facility] Wernicke encephalopathy Surgical History Bladder Surgery suspension Colonoscopy - [facility] (01/28/17) EGD - [facility] (12/20/16) History of bilateral ligation of fallopian tubes History of Surgical Procedure a. Bladder repair. Ligation of fallopian tube Repair bladder injury, simple Family History Mother No problems noted. Father , DROWNED at age 50. No problems noted. Sister Personal history of malignant neoplasm MELANOMA Sister No problems noted. Grandfather Personal history of malignant neoplasm STOMACH Grandfather Personal history of malignant neoplasm PROSTATE Grandmother Heart disease NC Acute ill-defined cerebrovascular disease Grandmother Personal history of malignant neoplasm UTERINE Aunt , NC Heart disease NC Aunt , NC Heart disease Brother No problems noted. Social History Smoking/Tobacco Use Status: Former Tobacco Use Quit Date: 08/05/20 Smoking risk assessment performed?: Yes Alcohol Intake: current Alcohol Intake frequency: 3 or more drinks per day Alcohol type: hard liquor Drug use: Never Substance use type: does not use Current gender identity: female Do you feel safe at home: Yes Do you feel safe in your relationship?: Yes Additional Social history: Unable to obtain any history r/t patients alcohol consumption Exam <Paul Chavira DO - Last Filed: 02/05/21 07:28> Narrative Exam Narrative: 1.Const: Well-nourished, Well-developed, appearing stated age 2.Eyes: PERRL, no conjunctival injection, and symmetrical lids. 3.ENT: Patient demonstrates no signs of tooth avulsion or fracture, no signs of jaw deformity, no evidence of a LeFort's fracture, with an intact palate, nose and orbital region. There is no evidence of a nasal septal hematoma. No proptosis. Jaw closes symmetrically. Airway is clear. There is no evidence of CSF rhinorrhea, mastoid tenderness, cranial crepitus, hemotympanum, exophthalmos, or hyphema. Patient does have notable bruising over her face, however I suspect this is from her fall 1 week ago where she suffered the maxillary sinus fracture at that time. 4.CVS: +S1/S2, No murmurs or gallops. Peripheral pulses 2+ and equal in all extremities. Brisk capillary refill in all extremities. 5.RESP: Unlabored respiratory effort. Clear to auscultation bilaterally. No wheezes rales or rhonchi 6.GI: Soft, Nontender/Nondistended, No hepatosplenomegaly. No guarding or rebound. 7.MSK: Normocephalic/Atraumatic, Extremities w/o deformity or ttp No cyanosis or clubbing, Normal movement of all extremities, however there is notable bruising over her right humerus. There appears to be no significant tenderness but exam is challenging secondary to her intoxicated state. , 8.Skin: Warm, Dry. No rashes or lesions. 9.Neuro: fitter and turner II-XII grossly intact. Sensation grossly intact, no focal neurologic deficits. 10.Psych: Patient for the most part refuses to answer questions, and exquisitely states that she does not want a c-collar and she wants the covers over her eyes so she does not see the light Course <Paul Chavira, DO - Last Filed: 02/05/21 07:28> Vital Signs Vital signs: Vital Signs Temperature 36.6 C 02/05/21 07:09 Pulse 97 H 02/05/21 07:09 Respiratory Rate 16 02/05/21 07:09 Blood Pressure 183/96 H 02/05/21 07:09 Pulse Oximetry 93 02/05/21 07:09 Temperature 36.6 C 02/05/21 07:09 Temperature Source Skin 02/05/21 07:09 Pulse 97 H 02/05/21 07:09 Respiratory Rate 16 02/05/21 07:09 Respiratory Effort Non-Labored 02/05/21 07:15 Blood Pressure 183/96 H 02/05/21 07:09 Blood Pressure Position Sitting 02/05/21 07:09 Pulse Oximetry 93 02/05/21 07:09 Pain Level 8 02/05/21 07:09 Sign Out <Paul Chavira DO - Last Filed: 02/05/21 07:28> Sign Out Data: Sign Out Comment: Fall, intoxicated, follow-up on labs and imaging Last updated by Paul Chavira DO at 02/05/21 07:34
--- NOTE | 2021-02-05 08:35 | DI.CT_ITS ---
Exam(s) CT HEAD CERVICAL SPINE WO EXAM: CT HEAD CERVICAL SPINE WO CLINICAL HISTORY: fall, etoh, recent facial fx. TECHNIQUE: Imaging Protocol: Axial computed tomography images with coronal and sagittal reformatted images were created and reviewed COMPARISON: CT CT HEAD CERV SPINE FACIAL WO from 01/27/2021 FINDINGS: Head CT Ventricles and Extra axial spaces: Normal in size and morphology for the patient's age. Usrf-cv-xydgx ate atrophy. Hemorrhage: None. Cerebral parenchyma: Normal. Midline shift: None. Brainstem/Cerebellum: Normal. Calvarium: Normal. Visualized Paranasal sinuses/Mastoids: Clear. Cervical Spine CT BONES: Vertebral body heights are maintained. There is stable reversal of the normal cervical lordosi s.. There is no evidence of acute fracture. Prominent degenerative disc changes and facet degenerative changes are seen . SOFT TISSUES: No paraspinal hematoma. The airway appears intact. No pneumothorax is seen at the lung apices. There is a stable opacity at the right upper lobe. IMPRESSION: Head CT: No acute abnormality. C-spine CT: Advanced degenerative changes, no acute abnormality. RADIATION DOSE DELIVERED: 1,468.36mGy.cm Total DLP DATA REPOSITORY: All CT scans at this facility are submitted to the National Radiology Data Registry (NRDR) Dose Index Registry (DIR) with the [employer] (ACR). RADIATION OPTIMIZATION: All CT scans at this facility use at least one of these dose optimization te chniques: automated exposure control; mA and/or kV adjustment per patient size (includes targeted exa ms where dose is matched to clinical indication); or iterative reconstruction.
[2021-02-05 09:27] LABS: HCT 33.3 % (36.0-46.0); Lymphocytes % 31.9; MCH 33.5 pg (27.0-33.0); MCV 101.5 fL (80-95); MPV 8.5 fL (8.0-11.0); Neutrophils % 59.6; Platelet Count 165 10^3/uL (130-400); RBC 3.28 10^6/uL (3.93-5.22); RDW 14.2 % (11.7-14.6); RDW-SD 52.8 fL; WBC 2.95 10^3/uL (4.4-10.8)
[2021-02-05 09:28] LABS: Abs Immature Grans 0.02 10^3/uL (0.0-0.06); Absolute Basophil Count 0.03 10^3/uL (0.0-0.2); Absolute Lymphocyte Count 0.94 10^3/uL (1.2-3.4); Absolute Neutrophil Count 1.76 10^3/uL (1.2-6.7); Immature Grans % 0.7; Monocytes % 6.8; Nucleated RBC 0 %
[2021-02-05 09:44] LABS: PTT Activated 23.7 sec (21.0-27.5); Prothrombin Time 10.3 sec (9.3-11.0)
[2021-02-05 10:00] LABS: ALT 46 U/L (14-59); AST 79 U/L (15-37); Albumin 3.5 g/dL (3.4-5.0); Alkaline Phosphatase 100 U/L (46-116); Anion Gap 14.6 mmol/L (3-11); BUN 11 mg/dL (7-18); Bilirubin, Total 1.3 mg/dL (0.2-1.0); CO2 26.4 mmol/L (21.0-32.0); CREATININE 0.8 mg/dL (0.55-1.02); Calcium 9.5 mg/dL (8.5-10.1); Chloride 103 mmol/L (98-107); ETHANOL BLOOD 312.3 mg/dL (<3); Glucose 104 mg/dL (74-106); Potassium 3.5 mmol/L (3.5-5.1); Sodium 144 mmol/L (136-145); Total Protein 6.8 g/dL (6.4-8.2)
[2021-02-05 10:09] LABS: Ammonia 29 umol/L (11-32)
== END 2021-02-05 12:32 | disposition home or self-care (01) ==
PROVIDERS: Physician Assistant; Student in an Organized Health Care Education/Training Program; Emergency Provider Emergency Medicine; PCP Family Medicine
DX: F10.229 Alcohol dependence with intoxication, unspecified (principal); R29.6 Repeated falls; S50.11XA Contusion of right forearm, initial encounter; X58.XXXA Exposure to other specified factors, initial encounter
CPT/HCPCS: 36415; 80053; 99284; 70450; 72125; 73060; 80320; 82140; 85025; 85610; 85730; 99283

== ENCOUNTER 2021-02-09 17:12 | Outpatient (CLI) | payer OTHER, SELFPAY ==
--- NOTE | 2021-02-09 17:00 | RT.EKG_ITS ---
APPROVED REPORT Exam: Resting ECG Reason for Exam: Shortness of breath Patient Location: O HR:102 bpm ECG Measurements Heart Rate 102 AXIS NH 184 P 50 QRSd 87 QRS -27 QT 359 T -5 QTc 468 Conclusion Sinus tachycardia...rate> 99 Probable left atrial enlargement...P >50mS, <-0.10mV V1 Left ventricular hypertrophy...multiple voltage criteria
== END 2021-02-09 17:13 | disposition home or self-care (01) ==
LOC: DI.CM 17:20
PROVIDERS: PCP Family Medicine; Visit Provider Nurse Practitioner Family
DX: R07.89 Other chest pain (principal)
CPT/HCPCS: 93010

== ENCOUNTER 2021-02-09 18:35 | Outpatient (REF) | payer OTHER, SELFPAY ==
[2021-02-09 20:49] LABS: Abs Immature Grans 0.03 10^3/uL (0.0-0.06); Absolute Basophil Count 0.02 10^3/uL (0.0-0.2); Absolute Lymphocyte Count 0.79 10^3/uL (1.2-3.4); Absolute Monocyte Count 0.34 10^3/uL (0.1-0.8); Absolute Neutrophil Count 3.27 10^3/uL (1.2-6.7); Basophils % 0.4; HCT 34.7 % (36.0-46.0); HGB 11.3 g/dL (11.2-15.7); Immature Grans % 0.7; Lymphocytes % 17.8; MCH 33.4 pg (27.0-33.0); MCHC 32.6 % (32.0-36.0); MCV 102.7 fL (80-95); Monocytes % 7.6; Neutrophils % 73.5; Nucleated RBC 0 %; Platelet Count 174 10^3/uL (130-400); RBC 3.38 10^6/uL (3.93-5.22); RDW 15.1 % (11.7-14.6); RDW-SD 55.2 fL; WBC 4.45 10^3/uL (4.4-10.8)
[2021-02-09 21:19] LABS: D-Dimer 674 ng/mlFEU (<500)
[2021-02-09 21:26] LABS: ALT 51 U/L (14-59); AST 91 U/L (15-37); Albumin 4.3 g/dL (3.4-5.0); Alkaline Phosphatase 115 U/L (46-116); Anion Gap 13.6 mmol/L (3-11); BUN 16 mg/dL (7-18); Bilirubin, Total 3.5 mg/dL (0.2-1.0); CO2 26.4 mmol/L (21.0-32.0); CREATININE 1.1 mg/dL (0.55-1.02); Calcium 9.6 mg/dL (8.5-10.1); Chloride 97 mmol/L (98-107); Estimated GFR 48.55 (mL/min/1.73m2); Glucose 125 mg/dL (74-106); Potassium 4.2 mmol/L (3.5-5.1); Sodium 137 mmol/L (136-145); Total Protein 7.3 g/dL (6.4-8.2)
[2021-02-10 16:20] LABS: Magnesium 1.2 mg/dL (1.8-2.4)
== END 2021-02-09 18:36 | disposition home or self-care (01) ==
LOC: NCHCN 18:35
PROVIDERS: PCP Family Medicine; Visit Provider Nurse Practitioner Family
DX: R06.02 Shortness of breath (principal); R00.0 Tachycardia, unspecified; E83.42 Hypomagnesemia
CPT/HCPCS: 80053; 83735; 85025; 85379

== ENCOUNTER 2021-02-13 10:34 | Emergency (ER) | payer OTHER, SELFPAY ==
--- NOTE | 2021-02-13 10:30 | RT.EKG_ITS ---
APPROVED REPORT Exam: Resting ECG Reason for Exam: [facility] Patient Location: E HR:89 bpm ECG Measurements Heart Rate 89 AXIS VA 216 P 46 QRSd 97 QRS -24 QT 390 T 4 QTc 476 Conclusion Sinus rhythm...normal P axis, V-rate 60- 99 Borderline prolonged VA interval...VA >212, V-rate 50- 90
[2021-02-13 10:41] VITALS: BP 137/83; PULSE 94; RESP 18; TEMP 36.9; O2SAT 93
--- NOTE | 2021-02-13 10:52 | W.ED.GENAD ---
Discharge Plan Disposition Patient Disposition: AGAINST MEDICAL ADVICE Condition: Fair Discharge Details Clinical Impression: Alcohol abuse, Anemia Primary Care Provider: Lavelle Galindo ED Provider: Monica Yarbrough [place] Meds and New Rx's Prescriptions: No Action Xiidra 5 % dropperette 1 drp ophthalmic (eye) BID RF: 0 acamprosate 333 mg tablet,delayed release (DR/EC) 333 mg PO TID Qty: 90 RF: 2 magnesium oxide 400 mg magnesium capsule 400 mg PO BID Qty: 180 RF: 3 celecoxib [Celebrex] 100 mg capsule 100 mg PO BID Qty: 60 RF: 2 cholestyramine (with sugar) 4 gram powder 1 pwd PO BID Qty: 378 RF: 0 Ensure Active High Protein Liquid 414 ml PO DAILY Qty: 98062 RF: 11 dicyclomine 10 mg capsule 10 mg PO QID PRN (Reason: belly pain) Qty: 40 RF: 0 sucralfate 1 gram tablet 1 g PO AC & HS Qty: 120 RF: 5 ipratropium-albuterol 0.5 mg-3 mg(2.5 mg base)/3 mL solution for nebulization 3 ml IH QID PRN (Reason: shortness of breath) Qty: 90 RF: 3 fluticasone propionate 50 mcg/actuation spray,suspension 1 spray NS daily prn Qty: 9.9 RF: 2 gabapentin 300 mg capsule 300 mg PO BID Qty: 90 RF: 5 metoprolol tartrate 50 mg tablet 50 mg PO BID Qty: 180 RF: 3 multivitamin [Multiple Vitamins] Tablet 1 tab PO DAILY Qty: 90 RF: 3 pantoprazole 40 mg tablet,delayed release (DR/EC) 40 mg PO DAILY Qty: 90 RF: 3 potassium chloride [Klor-Con M10] 10 mEq tablet,ER particles/crystals 10 meq PO DAILY Qty: 90 RF: 3 venlafaxine 37.5 mg capsule,extended release 24hr 37.5 mg PO DAILY Qty: 30 RF: 11 venlafaxine 150 mg capsule,extended release 24hr 150 mg PO DAILY Qty: 30 RF: 11 thiamine HCl (vitamin B1) 100 mg tablet 100 mg PO DAILY Qty: 90 RF: 3 folic acid 1 mg tablet 1 mg PO DAILY Qty: 90 RF: 3 doxepin 3 mg tablet 3 mg PO BID PRN (Reason: itch) Qty: 30 RF: 0 hydroxyzine HCl 25 mg tablet 25 mg PO TID PRN (Reason: itching) Qty: 30 RF: 2 silver sulfadiazine [Silvadene] 1 % cream 1 applic topical DAILY Qty: 25 RF: 1 ondansetron 4 mg tablet,disintegrating 4 mg PO Q8H PRN (Reason: nausea and vomiting) Qty: 20 RF: 0 Refresh Plus 0.5 % Dropperette 1 drp OU Q4H WHILE AWAKE Qty: 30 RF: 0 diphenhydramine HCl 25 mg Capsule 25 mg PO Q4H PRN PRNQty: 20 RF: 0 Restasis 0.05 % Dropperette 0.4 ml OU BID Qty: 10 RF: 0 hydrocortisone 1 % Cream 0 g topical TID Qty: 1 RF: 2 Eucerin Cream 0 g topical TID Qty: 1 RF: 1 Bio-K plus 50 billion cell Capsule,Delayed Release(Dr/Ec) 1 cap PO DAILY Qty: 60 RF: 0 sennosides [Senokot] 8.6 mg tablet 8.6 mg PO PRN PRNRF: 0 naltrexone 50 mg tablet 50 mg PO DAILY RF: 0 amlodipine 5 mg tablet 5 mg PO DAILY RF: 0 Discharge Instructions Instructions: Abuse of Alcohol (ED), Anemia (ED) Additional Instructions: you are leaving against medical recommendation return for further evaluation or see your pcp for reevaluation Discharge Data Discharge Date/Time-TO BE ENTERED AT DEPARTURE: 02/13/21 13:15 Medical Decision Making <CELINA Snow - Last Filed: 02/13/21 14:50> Patient is alert and oriented, her blood alcohol is 350, this seems consistent with her prior evaluation but I suspect when her alcohol level is lower limits, she is at risk for withdrawal symptoms of chronic alcoholic patient She does have anemia which is worsening, he did recommend guaiac evaluation to evaluate for GI bleed, patient has declined, I also recommended CT head and neck given her alcoholism and significant bruising to her head and neck region Patient has declined CT imaging Her potassium was noted to be 3.0, she is requesting discharge at this time and will not take any of her medications, risk-benefit were all discussed with patient I am attending physician, Dr. Jhaveri sign, patient was discharged home via taxi declining all intervention She adamantly denies suicidal ideation at this time AMA form was signed by my attending physician, please see documentation in chart pt will need close oupatient reevaluation and dc'd alert and oriented AMA status salt diet Differential Diagnosis Differential Diagnosis: Suicidal ideation, alcohol intoxication, electrolyte abnormality, subdural Medical Records Medical records reviewed: Yes I reviewed the patient's medical records. Lab Data Lab results reviewed: Yes I reviewed the patient's lab results. <James Crenshaw MD - Last Filed: 02/21/21 03:37> Patient seen, examined, and discussed with CELINA Yarbrough. I agree with treatment plan as discussed/documented. I went to assess the patient and patient is refusing recommended treatment and diagnostics. She wishes to leave AGAINST MEDICAL ADVICE. Patient does have decision-making capacity at this time and is clinically sober. Patient is not suicidal and has no plan to harm her self. I had a discussion with the patient about my diagnostic/treatment plan. Patient declines plan and wishes to leave against medical advise. I reiterated my concerns to the patient and explained the risks of leaving prior to completion of workup and treatment. I specifically emphasized the possibility of life-threatening or lifestyle modifying disease that would not be appropriately treated if they leave. Patient verbalized understanding of my concerns and the potential for life threatening or lifestyle modifying disease. Patient has capacity to make informed decision. I again explained my concerns and urged the patient to stay for treatment as outlined. Patient continued to refuse. I then discussed potential less ideal alternatives to diagnostic/treatment plan as outlines and patient refused. I recommended that the patient follow-up with primary care physician PARKER or return to the Emergency Department at any time for further treatment. HPI <CELINA Snow - Last Filed: 02/13/21 14:50> General Mode of arrival: EMS. Date/Time Provider Initiated Documentation: 02/13/21 10:36. Limitations to Documentation: altered mental status. Information obtained by: RN/. HPI Narrative: This 75-year-old female with history of alcoholism, frequent falls, hypokalemia presents with EMS secondary to acute alcohol intoxication and suicidal ideation. Patient denies any chest pain or shortness of breath. She is unable to give any additional history. She is unsure as to whether or not she fell recently. She has unsure as to when her last drink was and is unwilling to share this. She does state I do not want to live any longer . Denies specific pain complaints. Related Data Home Medications Medication Instructions Recorded Confirmed Refresh Plus 1 drp OU Q4H WHILE AWAKE #30 each 06/20/19 02/18/21 magnesium oxide 400 mg PO BID #180 cap 07/17/19 02/18/21 food supplemt, lactose-reduced 414 ml PO DAILY #70799 ml 08/24/19 02/18/21 dicyclomine 10 mg capsule 10 mg PO QID PRN #40 cap 11/06/19 02/18/21 sucralfate 1 gram tablet 1 g PO AC & HS #120 tab 11/06/19 02/18/21 ipratropium 0.5 mg-albuterol 3 mg 3 ml IH QID PRN #90 ml 01/04/20 02/18/21 (2.5 mg base)/3 mL nebulization soln fluticasone propionate 50 1 spray NS daily prn #9.9 ml 03/25/20 02/18/21 mcg/actuation nasal spray,suspension Bio-K plus 1 cap PO DAILY #60 cap 05/12/20 02/18/21 celecoxib 100 mg capsule 100 mg PO BID #60 cap 06/13/20 02/18/21 lifitegrast 5 % eye drops in a 1 drp OPHTHALMIC (EYE) BID 08/05/20 02/18/21 dropperette sennosides [Senokot] 8.6 mg PO PRN PRN 08/08/20 02/18/21 cholestyramine (with sugar) 4 gram 1 pwd PO BID #378 g 08/27/20 02/18/21 oral powder folic acid 1 mg tablet 1 mg PO DAILY #90 tab 09/05/20 02/18/21 gabapentin 300 mg capsule 300 mg PO BID #90 cap 09/05/20 02/18/21 metoprolol tartrate 50 mg tablet 50 mg PO BID #180 tab 09/05/20 02/18/21 multivitamin 1 tab PO DAILY #90 tab 09/05/20 02/18/21 pantoprazole 40 mg tablet,delayed 40 mg PO DAILY #90 tab 09/05/20 02/18/21 release potassium chloride 10 mEq 10 meq PO DAILY #90 tab 09/05/20 02/18/21 tablet,extended release(part/cryst) thiamine HCl (vitamin B1) 100 mg 100 mg PO DAILY #90 tab 09/05/20 02/18/21 tablet venlafaxine 150 mg 150 mg PO DAILY #30 cap 09/05/20 02/18/21 capsule,extended release 24 hr venlafaxine 37.5 mg 37.5 mg PO DAILY #30 cap 09/05/20 02/18/21 capsule,extended release 24 hr doxepin 3 mg tablet 3 mg PO BID PRN #30 tab 10/15/20 02/18/21 hydroxyzine HCl 25 mg tablet 25 mg PO TID PRN #30 tab 10/17/20 02/18/21 Eucerin 0 g TOPICAL TID #1 unit 10/25/20 02/18/21 Restasis 0.4 ml OU BID #10 ea 10/25/20 02/18/21 diphenhydramine HCl 25 mg PO Q4H PRN PRN #20 cap 10/25/20 02/18/21 hydrocortisone 0 g TOPICAL TID #1 applic 10/25/20 02/18/21 amlodipine 5 mg PO DAILY 11/12/20 02/18/21 naltrexone 50 mg PO DAILY 11/12/20 02/18/21 acamprosate 333 mg tablet,delayed 333 mg PO TID #90 tab 11/26/20 02/18/21 release silver sulfadiazine 1 % topical 1 applic TOPICAL DAILY #25 g 01/06/21 02/18/21 cream ondansetron 4 mg disintegrating 4 mg PO Q8H PRN #20 tab 01/30/21 02/18/21 tablet Previous Rx's Medication Instructions Recorded Refresh Plus 1 drp OU Q4H WHILE AWAKE #30 each 06/20/19 magnesium oxide 400 mg PO BID #180 cap 07/17/19 food supplemt, lactose-reduced 414 ml PO DAILY #73157 ml 08/24/19 dicyclomine 10 mg capsule 10 mg PO QID PRN #40 cap 11/06/19 sucralfate 1 gram tablet 1 g PO AC & HS #120 tab 11/06/19 ipratropium 0.5 mg-albuterol 3 mg 3 ml IH QID PRN #90 ml 01/04/20 (2.5 mg base)/3 mL nebulization soln fluticasone propionate 50 1 spray NS daily prn #9.9 ml 03/25/20 mcg/actuation nasal spray,suspension Bio-K plus 1 cap PO DAILY #60 cap 05/12/20 celecoxib 100 mg capsule 100 mg PO BID #60 cap 06/13/20 cholestyramine (with sugar) 4 gram 1 pwd PO BID #378 g 08/27/20 oral powder folic acid 1 mg tablet 1 mg PO DAILY #90 tab 09/05/20 gabapentin 300 mg capsule 300 mg PO BID #90 cap 09/05/20 metoprolol tartrate 50 mg tablet 50 mg PO BID #180 tab 09/05/20 multivitamin 1 tab PO DAILY #90 tab 09/05/20 pantoprazole 40 mg tablet,delayed 40 mg PO DAILY #90 tab 09/05/20 release potassium chloride 10 mEq 10 meq PO DAILY #90 tab 09/05/20 tablet,extended release(part/cryst) thiamine HCl (vitamin B1) 100 mg 100 mg PO DAILY #90 tab 09/05/20 tablet venlafaxine 150 mg 150 mg PO DAILY #30 cap 09/05/20 capsule,extended release 24 hr venlafaxine 37.5 mg 37.5 mg PO DAILY #30 cap 09/05/20 capsule,extended release 24 hr doxepin 3 mg tablet 3 mg PO BID PRN #30 tab 10/15/20 hydroxyzine HCl 25 mg tablet 25 mg PO TID PRN #30 tab 10/17/20 Eucerin 0 g TOPICAL TID #1 unit 10/25/20 Restasis 0.4 ml OU BID #10 ea 10/25/20 diphenhydramine HCl 25 mg PO Q4H PRN PRN #20 cap 10/25/20 hydrocortisone 0 g TOPICAL TID #1 applic 10/25/20 acamprosate 333 mg tablet,delayed 333 mg PO TID #90 tab 11/26/20 release silver sulfadiazine 1 % topical 1 applic TOPICAL DAILY #25 g 01/06/21 cream ondansetron 4 mg disintegrating 4 mg PO Q8H PRN #20 tab 01/30/21 tablet Allergies Allergy/AdvReac Type Severity Reaction Status Date / Time Penicillins Allergy Mild Rash Verified 02/18/21 14:39 ramipril Allergy Unknown ITCHING Verified 02/18/21 14:39 meperidine [From Demerol] AdvReac Severe Nausea Verified 02/18/21 14:39 bupropion AdvReac Mild GI upset Verified 02/18/21 14:39 AMBER Inhibitors AdvReac Unknown COUGH Verified 02/18/21 14:39 alendronate sodium AdvReac Unknown GI Distress Verified 02/18/21 14:39 clarithromycin AdvReac Unknown intolerant Verified 02/18/21 14:39 paroxetine AdvReac Unknown Diarrhea Verified 02/18/21 14:39 General Stated Complaint: GenMedical JORDAN: 3 Review of Systems <CELINA Snow - Last Filed: 02/13/21 14:50> Narrative: Review of systems obtained x7 aside from where indicated in HPI PFSH <CELINA Snow - Last Filed: 02/13/21 14:50> Medical History Adjustment disorder with depressed mood AMBER (acute kidney injury) Alcohol abuse Alcoholic gastritis without bleeding Alcoholic ketosis Allergic rhinitis Anemia (12/20/16) Back pain, chronic Calcific tendinitis of left shoulder CAP (community acquired pneumonia) Cataract (11/07/15) Cervical radicular pain neck pain and DJD [facility] 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) pls refrain from alcohol Chronic alcoholism she will not stop drinking unless she checks with me, so that we can help her avert withdrawal I do not think she is capable on her own--she would need placement to achieve required goal of 3 months of sobriety Chronic diarrhea Closed displaced fracture of proximal phalanx of right index finger with routine healing (06/03/17) Closed right humeral fracture Contusion of left little finger Corneal ulcer, right (~08/23/18) 08/23/18; [facility] Dehydration Depression Diarrhea Discharge planning issues DVT prophylaxis Dystrophic nail Elev transaminase/LDH due to alcohol Epigastric abdominal pain Fall as cause of accidental injury at home as place of occurrence Genital herpes simplex recurrent gential; suppressive Valtrex GERD (gastroesophageal reflux disease) GI bleed (12/20/16) Head contusion Headache History of alcohol abuse Humerus fracture (09/12/19) Right Hyperlipidemia Hypertension Incidental lung nodule, greater than or equal to 8mm 1cm, spiculated, stable for many years, recommend f/u in 6 mo Macrocytosis (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 Multiple rib fractures 03/11/19 [facility] Nausea and vomiting in adult Non-cardiac chest pain (09/21/16[place] [facility] NEGATIVE MP Osteoarthritis Osteopenia Palliative care patient (03/21/17) Pancreatitis, alcoholic, acute Peripheral edema Pleural effusion on left 03/11/19 [facility] Presacral mass (~09/15/18) 09/15/18 [facility] Right rib fracture Sacral mass Sciatica right, epidural injuections [facility] Tendinitis of left rotator cuff Tubular adenoma of colon (01/28/17) Urinary incontinence 01/24/13 [place]ral suspension [place] [facility] [place] UTI (urinary tract infection) 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 Bladder repair. Ligation of fallopian tube Repair bladder injury, simple Family History Mother No problems noted. Father , DROWNED at age 50. No problems noted. Sister Personal history of malignant neoplasm MELANOMA Sister No problems noted. Grandfather Personal history of malignant neoplasm STOMACH Grandfather Personal history of malignant neoplasm PROSTATE Grandmother Heart disease GA Acute ill-defined cerebrovascular disease Grandmother Personal history of malignant neoplasm UTERINE Aunt , GA Heart disease GA Aunt , GA Heart disease Brother No problems noted. Social History Smoking/Tobacco Use Status: Former Tobacco Use Quit Date: 08/05/20 Smoking risk assessment performed?: Yes Alcohol Intake: current Alcohol Intake frequency: 3 or more drinks per day Alcohol type: hard liquor Drug use: Never Substance use type: does not use Current gender identity: female Do you feel safe at home: Yes Do you feel safe in your relationship?: Yes Additional Social history: Unable to obtain any history r/t patients alcohol consumption Exam <CELINA Snow - Last Filed: 02/13/21 14:50> Const General: disheveled HENMT Other: Numerous ecchymotic regions on patient's maxillary region, neck, and forehead Eyes Pupils: PERRL Neck Other: No midline tenderness Chest Other: Ecchymosis right upper chest wall, no crepitus Resp Effort & Inspection: normal respiratory effort Cardio Rate: regular rate GI Other: No abdominal tenderness, no CVA tenderness Neuro General: patient alert and patient oriented x3 Other: GCS 15 Course <CELINA Snow - Last Filed: 02/13/21 14:50> Vital Signs Vital signs: Vital Signs Temperature 36.9 C 02/13/21 10:41 Pulse 94 H 02/13/21 10:41 Respiratory Rate 18 02/13/21 10:41 Blood Pressure 137/83 02/13/21 10:41 Pulse Oximetry 93 02/13/21 10:41 Temperature 36.9 C 02/13/21 10:41 Temperature Source Temporal Artery Scan 02/13/21 10:41 Pulse 94 H 02/13/21 10:41 Respiratory Rate 18 02/13/21 10:41 Respiratory Effort 02/13/21 10:44 Blood Pressure 137/83 02/13/21 10:41 Blood Pressure Position Supine 02/13/21 10:41 Pulse Oximetry 93 02/13/21 10:41 Oxygen Delivery Method Room Air 02/13/21 10:41 Oxygen Flow Rate 0 02/13/21 10:41 Pain Level 2 02/13/21 10:41
[2021-02-13 11:33] LABS: Abs Immature Grans 0.01 10^3/uL (0.0-0.06); Absolute Basophil Count 0.01 10^3/uL (0.0-0.2); Absolute Lymphocyte Count 0.93 10^3/uL (1.2-3.4); Absolute Monocyte Count 0.49 10^3/uL (0.1-0.8); Absolute Neutrophil Count 1.38 10^3/uL (1.2-6.7); Basophils % 0.4; HCT 29.6 % (36.0-46.0); HGB 9.6 g/dL (11.2-15.7); Immature Grans % 0.4; MCH 34.2 pg (27.0-33.0); MCHC 32.4 % (32.0-36.0); MCV 105.3 fL (80-95); MPV 9.3 fL (8.0-11.0); Monocytes % 17.4; Neutrophils % 48.8; Nucleated RBC 0 %; Platelet Count 180 10^3/uL (130-400); RBC 2.81 10^6/uL (3.93-5.22); RDW 15.3 % (11.7-14.6); RDW-SD 58.8 fL; WBC 2.82 10^3/uL (4.4-10.8)
[2021-02-13 11:45] LABS: Diff Comment RBC Morph Reviewed; Macrocytosis 1+
[2021-02-13 12:01] LABS: Ammonia 15 umol/L (11-32)
[2021-02-13 12:04] LABS: Magnesium 1.9 mg/dL (1.8-2.4); Salicylate < 2.8 mg/dL (<2.8)
[2021-02-13 12:09] LABS: ALT 49 U/L (14-59); AST 50 U/L (15-37); Albumin 3.3 g/dL (3.4-5.0); Alkaline Phosphatase 109 U/L (46-116); Anion Gap 10.9 mmol/L (3-11); BUN 23 mg/dL (7-18); Bilirubin, Total 0.5 mg/dL (0.2-1.0); CO2 26.1 mmol/L (21.0-32.0); CREATININE 1.2 mg/dL (0.55-1.02); Calcium 9.3 mg/dL (8.5-10.1); Chloride 107 mmol/L (98-107); Estimated GFR 43.91 (mL/min/1.73m2); Glucose 122 mg/dL (74-106); Sodium 144 mmol/L (136-145); Total Protein 6.2 g/dL (6.4-8.2)
[2021-02-13 12:18] LABS: TSH (W/Ref FT4) 0.09 uIU/mL (0.36-3.74)
[2021-02-13 12:19] LABS: Acetaminophen < 2 ug/mL (10-30); ETHANOL BLOOD 350.4 mg/dL (<3)
[2021-02-13 12:43] LABS: FREE T4 1.22 ng/dL (0.76-1.46)
== END 2021-02-13 13:15 | disposition left against medical advice (07) ==
PROVIDERS: Emergency Provider Physician Assistant; PCP Family Medicine
DX: F10.129 Alcohol abuse with intoxication, unspecified (principal); D64.9 Anemia, unspecified; Z53.29 Procedure and treatment not carried out because of patient's decision for other reasons
CPT/HCPCS: 36415; 80053; 93005; 99283; 80320; 80329; 81003; 82140; 83735; 84439; 84443; 85025; 93010; 99282

== ENCOUNTER 2021-02-18 14:39 | Emergency (ER) | payer OTHER, SELFPAY ==
[2021-02-18 14:29] VITALS: BP 117/75; PULSE 84; RESP 16; TEMP 36.7; O2SAT 98
--- NOTE | 2021-02-18 14:56 | NUR.NOTE ---
patient was only able to confirm prilosec on medicatrion rec. patient does not know what she takes. [facility] reported last filled medications in mid september. Nursing Note:
--- NOTE | 2021-02-18 15:00 | DI.CT_ITS ---
Exam(s) CT CHEST/ABD/PEL WO EXAM: CT CHEST/ABD/PEL WO CLINICAL HISTORY: s/p fall, r/o acute fx. TECHNIQUE: Imaging Protocol: Axial computed tomography images with coronal and sagittal reformatted images were created and reviewed CONTRAST MATERIAL: Intravenous: none Oral: None COMPARISON: CT CT ABDOMEN PELVIS WO/W from 06/14/[address] CHEST/ABD/PEL W from 12/13/2020 FINDINGS: CHEST: LUNGS: In the right upper lobe there is a spiculated sub apical nodular density which is unchanged fr om 12/13/2020, again measuring 11 millimeters. Some scarring in both lungs is unchanged. No pleural effusions. No pneumothorax. No new findings in trachea and mainstem bronchi. MEDIASTINUM: No obvious hilar nor mediastinal adenopathy. Visualized thyroid unremarkable. CARDIAC: Heart size is normal. There is no pericardial effusion.Caliber of the thoracic aorta is upp er normal. OSSEOUS: Multiple healed bilateral rib fractures are again noted. No acute fractures evident. No th oracic vertebral fractures.. ABDOMEN: There is no ascites. LIVER: There are no obvious focal hepatic lesions evident of this noninfused study. No evidence of o bvious a patent laceration. GALLBLADDER/BILIARY: No obvious gallbladder pathology. CBD is not dilated. PANCREAS: No evidence of obvious pancreatic mass nor dilatation of the pancreatic duct. SPLEEN: Spleen is not enlarged. No obvious intrasplenic lesions. No splenic laceration. ADRENALS: There are no new significant adrenal masses. KIDNEYS: Multiple right-sided renal cysts are again noted,. There are 2 tiny hyperdense findings in the superior pole of the right kidney which may be hemorrhagic cysts. Motion artifacts prevents accu rate assessment. Another similar findings seen in the lateral cortex of the left kidney. There is a lso a cyst in the lateral cortex of the left kidney, measuring 11 x 11 millimeters. The largest cyst in the right kidney measures approximately 3 centimeters, unchanged. ABDOMINAL AORTA: Abdominal aorta is not enlarged. LYMPH NODES: No eceprcvoprckqkp-faib-pkkqsw adenopathy. No evidence of bowel wall hematoma. No mese nteric hematoma. ABDOMINAL WALL/GI: No evidence of signature anterior abdominal wall hernia. No bowel obstruction. PELVIS: LYMPH NODES: There is no intrapelvic nor inguinal adenopathy. GI: No evidence of appendicitis.No evidence of sigmoid diverticulitis. URINARY BLADDER: No calculi nor obvious masses evident REPRODUCTIVE: Uterus size age-appropriate. OSSEOUS: In the presacral region there is a lobulated noncalcified mass which measures approximately 4.5 by 2.8 by 5 cm, unchanged from prior study performed within the past year but slightly increased in size from 05/2018 CT scan. There is no free fluid in the pelvis. IMPRESSION: 1. Unchanged 11 millimeter spiculated nodule in the right upper lobe sub apical region, this is uncha nged from prior studies earlier this year but requires appropriate follow-up. 2. Multiple bilateral healed rib fractures. No acute fractures. No pleural effusions. No pneumotho rax. 3. Multiple cysts in the kidneys and hyperdense nodules which are probably hemorrhagic cyst but diffi cult to evaluate without IV contrast. 4. Lobulated noncalcified mass in the presacral region measuring 4.5 x 2.8 x 5 centimetres which has slightly increased in size from the June 07/2018 scan but unchanged from CT scan 12/13/2020. No ascites Result called by myself to ER physician following completion of the study 02/18/2021 RADIATION DOSE DELIVERED: Total DLP DATA REPOSITORY: All CT scans at this facility are submitted to the National Radiology Data Registry (NRDR) Dose Index Registry (DIR) with the [employer] (ACR). RADIATION OPTIMIZATION: All CT scans at this facility use at least one of these dose optimization te chniques: automated exposure control; mA and/or kV adjustment per patient size (includes targeted exa ms where dose is matched to clinical indication); or iterative reconstruction.
--- NOTE | 2021-02-18 15:08 | DI.CT_ITS ---
Exam(s) CT THORACIC LUMBAR SPINE REC EXAM: CT THORACIC LUMBAR SPINE REC CLINICAL HISTORY: s/p fall, r/o acute fx TECHNIQUE: COMPARISON: CT CT CHEST/ABD/PEL W from 12/13/2020 FINDINGS: THORACIC SPINE: There is a compression deformity of T12 at inferior endplate level consistent with re cent fracture. No retropulsed cortex at this level. There is also mild height loss of T6 which is p robably not acute. There is moderate T10-T11 disc space narrowing. No prominent disc herniation. There are nonacute appearing fractures of the right 4th through 10th ribs and there also nonacute korey earing left rib fractures, left ribs numbers 5 through 10. There are no lytic osseous lesions. Visualized lung gatica: Right upper lobe 11 millimeters spiculated nodule, previously documented. LUMBAR SPINE: No evidence of compression fractures. There is mild anterolisthesis of L 4 upon L5 due to facet arthropathy. There is approximately 8 millimeters anterior slippage. Also advanced disc s pace narrowing at this level. Multilevel degenerative disc disease is noted. There is advanced disc space narrowing at L1-2, L2-3, and L4-5 levels. Moderate disc space narrowing at L3-4 and mild disc space narrowing at L5-S1. No lytic osseous lesions. Visualized sacrum unremarkable. IMPRESSION: 1. Inferior endplate compression deformity T12 level. No retropulsion 2. Mild superior endplate compression fracture T6, not acute. 3. 8 millimeter degenerative anterolisthesis L4 upon L5 as well as moderate disc space narrowing at t his level. 4. Advanced disc space narrowing at multiple levels in the lumbar spine. 5. If clinically indicated follow-up MRI can be performed.
--- NOTE | 2021-02-18 15:08 | ED.GENADUL_ITS ---
Discharge Plan Disposition Patient Disposition: HOME Condition: Stable Discharge Details Clinical Impression: Fall at home, Facial laceration, T12 compression fracture, Presacral mass Primary Care Provider: Lavelle Galindo ED Provider: Megan Foster Home Meds and New Rx's Prescriptions: Continued Xiidra 5 % dropperette 1 drp ophthalmic (eye) BID RF: 0 acamprosate 333 mg tablet,delayed release (DR/EC) 333 mg PO TID Qty: 90 RF: 2 magnesium oxide 400 mg magnesium capsule 400 mg PO BID Qty: 180 RF: 3 celecoxib [Celebrex] 100 mg capsule 100 mg PO BID Qty: 60 RF: 2 cholestyramine (with sugar) 4 gram powder 1 pwd PO BID Qty: 378 RF: 0 Ensure Active High Protein Liquid 414 ml PO DAILY Qty: 00264 RF: 11 dicyclomine 10 mg capsule 10 mg PO QID PRN (Reason: belly pain) Qty: 40 RF: 0 sucralfate 1 gram tablet 1 g PO AC & HS Qty: 120 RF: 5 ipratropium-albuterol 0.5 mg-3 mg(2.5 mg base)/3 mL solution for nebulization 3 ml IH QID PRN (Reason: shortness of breath) Qty: 90 RF: 3 fluticasone propionate 50 mcg/actuation spray,suspension 1 spray NS daily prn Qty: 9.9 RF: 2 gabapentin 300 mg capsule 300 mg PO BID Qty: 90 RF: 5 metoprolol tartrate 50 mg tablet 50 mg PO BID Qty: 180 RF: 3 multivitamin [Multiple Vitamins] Tablet 1 tab PO DAILY Qty: 90 RF: 3 pantoprazole 40 mg tablet,delayed release (DR/EC) 40 mg PO DAILY Qty: 90 RF: 3 potassium chloride [Klor-Con M10] 10 mEq tablet,ER particles/crystals 10 meq PO DAILY Qty: 90 RF: 3 venlafaxine 37.5 mg capsule,extended release 24hr 37.5 mg PO DAILY Qty: 30 RF: 11 venlafaxine 150 mg capsule,extended release 24hr 150 mg PO DAILY Qty: 30 RF: 11 thiamine HCl (vitamin B1) 100 mg tablet 100 mg PO DAILY Qty: 90 RF: 3 folic acid 1 mg tablet 1 mg PO DAILY Qty: 90 RF: 3 doxepin 3 mg tablet 3 mg PO BID PRN (Reason: itch) Qty: 30 RF: 0 hydroxyzine HCl 25 mg tablet 25 mg PO TID PRN (Reason: itching) Qty: 30 RF: 2 silver sulfadiazine [Silvadene] 1 % cream 1 applic topical DAILY Qty: 25 RF: 1 ondansetron 4 mg tablet,disintegrating 4 mg PO Q8H PRN (Reason: nausea and vomiting) Qty: 20 RF: 0 Refresh Plus 0.5 % Dropperette 1 drp OU Q4H WHILE AWAKE Qty: 30 RF: 0 diphenhydramine HCl 25 mg Capsule 25 mg PO Q4H PRN PRNQty: 20 RF: 0 Restasis 0.05 % Dropperette 0.4 ml OU BID Qty: 10 RF: 0 hydrocortisone 1 % Cream 0 g topical TID Qty: 1 RF: 2 Eucerin Cream 0 g topical TID Qty: 1 RF: 1 Bio-K plus 50 billion cell Capsule,Delayed Release(Dr/Ec) 1 cap PO DAILY Qty: 60 RF: 0 sennosides [Senokot] 8.6 mg tablet 8.6 mg PO PRN PRNRF: 0 naltrexone 50 mg tablet 50 mg PO DAILY RF: 0 amlodipine 5 mg tablet 5 mg PO DAILY RF: 0 Discharge Instructions Instructions: Vertebral Compression Fracture (ED), Facial Laceration (ED) Additional Instructions: Keep wound clean and dry. Cover wound with bandage if risk of contamination. Otherwise you can keep the wound open to air if resting at home to allow edges to dry and heal. Alternate tylenol and motrin as needed and directed for pain. 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 Use a cane or walker as needed for ambulation while back pain present until follow up with the spine clinic. Follow-up with your primary care doctor or return to the emergency department in 5 to 7 days for suture removal. Return to the emergency department with any worsening or new concerning symptoms. Discharge Data Discharge Date/Time-TO BE ENTERED AT DEPARTURE: 02/18/21 18:20 Discharge Physician: Megan Foster Medical Decision Making 75-year-old female with a history of alcohol abuse and multiple ED visits related to falls presents for a fall after possibly losing her balance and potentially tripping over her walker striking her head on the ground. Admits to headache and neck pain but denies any LOC or vomiting. Denies any dizziness, chest pain, shortness of breath or LOC prior to fall. Vitals within normal limits. C-collar present. Patient has right-sided facial swelling which she states is related to a right sinus fracture sustained a few weeks ago. She has midline spinal, thoracic and lumbar spine tenderness. She is moving all extremities without deformity. She has chronic bilateral shoulder pain related to previous humerus fractures. Her lungs are clear and her abdomen is soft and nontender. Considering patient's history and mechanism, will obtain screening labs and CT head, facial bones, cervical spine, chest abdomen and pelvis thoracic and lumbar spine recons. Labs reviewed. White blood cell count 4. Potassium 3.7. Mag 1.4, she is on home po magnesium. CT imaging reviewed. No acute findings on CT head, facial bones or cervical spine. CT thoracic spine note potential T12 compression fracture. This was r eviewed with Dr. Bernard who notes that this appears nondisplaced and recommends weightbearing as tolerated with a cane or walker, pain control and can follow-up with spine. T6 compression deformity likely chronic. CT chest abdomen pelvis negative for acute chest or abdominal pathology. There is a previously noted presacral mass which has been unchanged from this year but generally increasing in size over the past few years. Patient's facial laceration closed with 5 Prolene 6-0 sutures. Patient complained of some left-sided rib pain and she was given a dose of IV tylenol. All results and plan were d/w patient. Case discussed with patient caregiver Armida over the phone at [phone] and she was informed of results and that patient will be discharged home. She can follow-up with her PCP, home health or return to the ED for suture removal. Pt placed on care management list for follow up with spine or pain clinic. Tetanus up to date 2011. Medical Records Medical records reviewed: Yes I reviewed the patient's medical records. Imaging Data Radiologic Study: Radiologist's impression: CT Head Without Contrast Exam date and time: 02/18/2021 3:29 PM Age: 75 years old Clinical indication: Injury or trauma; Fall; Blunt trauma (contusions or hematomas); Cheek bone; Not specified TECHNIQUE: Imaging protocol: Computed tomography of the head without contrast. COMPARISON: 1. CT HEAD CERVICAL SPINE WO 02/05/2021 8:[address] HEAD CERV SPINE FACIAL WO 01/27/2021 10:02 PM FINDINGS: Brain: Mild low attenuation in the periventricular white matter. This is a nonspecific finding most commonly seen in setting of microvascular ischemic change. Moderate involutional changes of the brain parenchyma. No evidence of acute infarct. No intraparenchymal hemorrhage. No midline shift or mass effect. No extra-axial fluid collections or hemorrhage. Cerebral ventricles: No ventriculomegaly. Paranasal sinuses: Mucous retention cyst versus polyp in a left anterior ethmoid air cell and in the right maxillary sinus. Otherwise normal aeration of the paranasal sinuses. Mastoid air cells: Visualized mastoid air cells are well aerated. Bones/joints: Unremarkable. No acute fracture. Soft tissues: Unremarkable. IMPRESSION: No evidence of acute intracranial abnormality. CT Maxillofacial Without Contrast Exam date and time: 02/18/2021 3:29 PM Age: 75 years old Clinical indication: Injury or trauma; Fall; Blunt trauma (contusions or hematomas); Cheek bone; Not specified TECHNIQUE: Imaging protocol: Computed tomography images of the face without contrast. COMPARISON: 1. CT HEAD CERVICAL SPINE WO 02/05/2021 8:[address] HEAD CERV SPINE FACIAL WO 01/27/2021 10:02 PM FINDINGS: Orbital cavity: Orbits are normal. Globes are unremarkable. Bones/joints: No acute fracture. Paranasal sinuses: Normal. No air-fluid levels. Soft tissues: Unremarkable. IMPRESSION: No acute findings. CT Cervical Spine Without Contrast Exam date and time: 02/18/2021 3:29 PM Age: 75 years old Clinical indication: Injury or trauma; Fall; Blunt trauma (contusions or hematomas); Cheek bone; Not specified TECHNIQUE: Imaging protocol: Computed tomography images of the cervical spine without contrast. COMPARISON: 1. CT HEAD CERVICAL SPINE WO 02/05/2021 8:[address] HEAD CERV SPINE FACIAL WO 01/27/2021 10:02 PM FINDINGS: Bones/joints: Stable mild reversal of the normal cervical lordosis. Stable mild anterolisthesis of C3 on C4, and of C5 on C6, measuring 4 mm. Discs/Spinal canal/Neural foramina: Severe multilevel degenerative changes of the cervical spine, with findings including disc space narrowing, uncovertebral hypertrophy, facet arthropathy, marginal osteophytes, and disc osteophyte complexes, greatest at C4-C6. Lungs: Lung apices are normal. Soft tissues: Unremarkable. IMPRESSION: 1. No evidence of acute fracture of the cervical spine. 2. Stable mild reversal of the normal cervical lordosis. 3. Stable mild anterolisthesis of C3 on C4, and of C5 on C6, measuring 4 mm. 4. Severe multilevel degenerative disc disease. CT Thoracic Spine Without Contrast Exam date and time: 02/18/2021 3:36 PM Age: 75 years old Clinical indication: Other: S/P fall, R/O acute FX TECHNIQUE: Imaging protocol: Computed tomography images of the thoracic spine without contrast. Radiation optimization: All CT scans at this facility use at least one of these dose optimization techniques: automated exposure control; mA and/or kV adjustment per patient size (includes targeted exams where dose is matched to clinical indication); or iterative reconstruction. COMPARISON: 1. CT THORACIC LUMBAR SPINE REC 11/10/2020 11:[address] CHEST/ABD/PEL W 12/13/2020 7:12 PM FINDINGS: Vertebrae: There is compression deformity of the T12 vertebra at its inferior endplate where there are vertical linear lucencies seen, suggestive of a recent compression fracture. Some vertebral body height loss of T6 without definite fracture line seen possibly chronic compression deformity. Discs/Spinal canal/Neural foramina: There is moderate T10-T11 disc space narrowing. Other bones/joints: There are chronic appearing right 4th through 10th rib fractures. There are chronic appearing left 5th through 10th rib fractures. Soft tissues: Unremarkable. Lungs: There is a stable, spiculated 11 mm nodular opacity in the posterior right upper lobe. IMPRESSION: 1. Inferior endplate compression deformity of T12 with vertical linear lucencies suggestive of recent compression fracture. 2. Vertebral body height loss of T6 consistent with age indeterminate compression deformity, but no fracture line seen, possibly chronic. 3. Numerous bilateral chronic appearing rib fractures. 4. Stable 11 mm nodular opacity in the posterior right upper lobe. CT Lumbar Spine Without Contrast Exam date and time: 02/18/2021 3:36 PM Age: 75 years old Clinical indication: Other: S/P fall, R/O acute FX TECHNIQUE: Imaging protocol: Computed tomography images of the lumbar spine without contrast. Radiation optimization: All CT scans at this facility use at least one of these dose optimization techniques: automated exposure control; mA and/or kV adjustment per patient size (includes targeted exams where dose is matched to clinical indication); or iterative reconstruction. COMPARISON: 1. CT THORACIC LUMBAR SPINE REC 11/10/2020 11:[address] CHEST/ABD/PEL W 12/13/2020 7:12 PM FINDINGS: Vertebrae: No acute fracture. There is L4-L5 anterolisthesis due to facet arthropathy. Discs/Spinal canal/Neural foramina: There is severe disc space narrowing at L1-L2, L2-L3 and L4-L5. Liver: There is a diffuse decrease in hepatic parenchymal density, consistent with fatty infiltration. There is no evidence for a mass. Kidneys and ureters: There are bilateral renal cysts. There is 5 mm hyperdense lesion in the left kidney, possibly a hemorrhagic cyst. Soft tissues: Unremarkable. IMPRESSION: 1. No evidence for compression deformity of the lumbar vertebrae. 2. Multilevel degenerative disc disease. 3. Bilateral renal cysts. 5 mm hyperdense lesion in the left kidney, possibly a hemorrhagic cyst. This can be further evaluated with renal ultrasound. Lab Data Lab results reviewed: Yes I reviewed the patient's lab results. Labs: Laboratory Tests Range/Units 02/18/21 02/18/21 15:45 15:45 WBC (4.4-10.8) 10^3/uL 4.00 L RBC (3.93-5.22) 10^6/uL 3.42 L Hgb (11.2-15.7) g/dL 11.3 Hct (36.0-46.0) % 34.1 L MCV (80-95) fL 99.7 H MCH (27.0-33.0) pg 33.0 MCHC (32.0-36.0) % 33.1 RDW (11.7-14.6) % 14.3 Plt Count (130-400) 10^3/uL 212 MPV (8.0-11.0) fL 9.1 Immature Gran % 0.5 Neutrophils % 61.7 Lymphocytes % 25.5 Monocytes % 11.8 Eosinophils % 0.0 Basophils % 0.5 Nucleated RBC % % 0 Absolute Neutrophils (1.2-6.7) 10^3/uL 2.47 Absolute Lymphocytes (1.2-3.4) 10^3/uL 1.02 L Absolute Monocytes (0.1-0.8) 10^3/uL 0.47 Absolute Eosinophils (0.0-0.7) 10^3/uL 0.00 Absolute Basophils (0.0-0.2) 10^3/uL 0.02 Sodium (136-145) mmol/L 137 Potassium (3.5-5.1) mmol/L 3.7 Chloride (98-107) mmol/L 97 L Carbon Dioxide (21.0-32.0) mmol/L 22.7 Anion Gap (3-11) mmol/L 17.3 H BUN (7-18) mg/dL 14 Creatinine (0.55-1.02) mg/dL 1.3 H Estimated GFR/1.73 m2 (mL/min/1.73m2) 40.04 Glucose (74-106) mg/dL 120 H Calcium (8.5-10.1) mg/dL 9.1 Magnesium (1.8-2.4) mg/dL 1.4 L Total Bilirubin (0.2-1.0) mg/dL 1.9 H AST (15-37) U/L 40 H ALT (14-59) U/L 35 Alkaline Phosphatase (46-116) U/L 143 H Total Protein (6.4-8.2) g/dL 7.0 Albumin (3.4-5.0) g/dL 3.5 HPI General Mode of arrival: EMS . Date/Time Provider Initiated Documentation: 02/18/21 15:04 . Limitations to Documentation: no limitations . Information obtained by: patient . HPI Narrative: Patient is a 75-year-old female with a history of multiple ED visits, alcohol abuse with multiple falls presents for fall at home this morning with head laceration. Patient states she frequently uses her balance and walking and states she was walking with her walker when she tripped and hit her head on the kitchen floor. She denies any chest pain, shortness of breath or dizziness prior to the fall. She states she has not ate much food over the past 2 days. She states her last alcohol was yesterday. She currently is complaining of left-sided headache, neck pain but denies any chest or abdominal pain. Related Data Home Medications Medication Instructions Recorded Confirmed Refresh Plus 1 drp OU Q4H WHILE AWAKE #30 each 06/20/19 02/18/21 magnesium oxide 400 mg PO BID #180 cap 07/17/19 02/18/21 food supplemt, lactose-reduced 414 ml PO DAILY #95809 ml 08/24/19 02/18/21 dicyclomine 10 mg capsule 10 mg PO QID PRN #40 cap 11/06/19 02/18/21 sucralfate 1 gram tablet 1 g PO AC & HS #120 tab 11/06/19 02/18/21 ipratropium 0.5 mg-albuterol 3 mg 3 ml IH QID PRN #90 ml 01/04/20 02/18/21 (2.5 mg base)/3 mL nebulization soln fluticasone propionate 50 1 spray NS daily prn #9.9 ml 03/25/20 02/18/21 mcg/actuation nasal spray,suspension Bio-K plus 1 cap PO DAILY #60 cap 05/12/20 02/18/21 celecoxib 100 mg capsule 100 mg PO BID #60 cap 06/13/20 02/18/21 lifitegrast 5 % eye drops in a 1 drp OPHTHALMIC (EYE) BID 08/05/20 02/18/21 dropperette sennosides [Senokot] 8.6 mg PO PRN PRN 08/08/20 02/18/21 cholestyramine (with sugar) 4 gram 1 pwd PO BID #378 g 08/27/20 02/18/21 oral powder folic acid 1 mg tablet 1 mg PO DAILY #90 tab 09/05/20 02/18/21 gabapentin 300 mg capsule 300 mg PO BID #90 cap 09/05/20 02/18/21 metoprolol tartrate 50 mg tablet 50 mg PO BID #180 tab 09/05/20 02/18/21 multivitamin 1 tab PO DAILY #90 tab 09/05/20 02/18/21 pantoprazole 40 mg tablet,delayed 40 mg PO DAILY #90 tab 09/05/20 02/18/21 release potassium chloride 10 mEq 10 meq PO DAILY #90 tab 09/05/20 02/18/21 tablet,extended release(part/cryst) thiamine HCl (vitamin B1) 100 mg 100 mg PO DAILY #90 tab 09/05/20 02/18/21 tablet venlafaxine 150 mg 150 mg PO DAILY #30 cap 09/05/20 02/18/21 capsule,extended release 24 hr venlafaxine 37.5 mg 37.5 mg PO DAILY #30 cap 09/05/20 02/18/21 capsule,extended release 24 hr doxepin 3 mg tablet 3 mg PO BID PRN #30 tab 10/15/20 02/18/21 hydroxyzine HCl 25 mg tablet 25 mg PO TID PRN #30 tab 10/17/20 02/18/21 Eucerin 0 g TOPICAL TID #1 unit 10/25/20 02/18/21 Restasis 0.4 ml OU BID #10 ea 10/25/20 02/18/21 diphenhydramine HCl 25 mg PO Q4H PRN PRN #20 cap 10/25/20 02/18/21 hydrocortisone 0 g TOPICAL TID #1 applic 10/25/20 02/18/21 amlodipine 5 mg PO DAILY 11/12/20 02/18/21 naltrexone 50 mg PO DAILY 11/12/20 02/18/21 acamprosate 333 mg tablet,delayed 333 mg PO TID #90 tab 11/26/20 02/18/21 release silver sulfadiazine 1 % topical 1 applic TOPICAL DAILY #25 g 01/06/21 02/18/21 cream ondansetron 4 mg disintegrating 4 mg PO Q8H PRN #20 tab 01/30/21 02/18/21 tablet Previous Rx's Medication Instructions Recorded Refresh Plus 1 drp OU Q4H WHILE AWAKE #30 each 06/20/19 magnesium oxide 400 mg PO BID #180 cap 07/17/19 food supplemt, lactose-reduced 414 ml PO DAILY #50820 ml 08/24/19 dicyclomine 10 mg capsule 10 mg PO QID PRN #40 cap 11/06/19 sucralfate 1 gram tablet 1 g PO AC & HS #120 tab 11/06/19 ipratropium 0.5 mg-albuterol 3 mg 3 ml IH QID PRN #90 ml 01/04/20 (2.5 mg base)/3 mL nebulization soln fluticasone propionate 50 1 spray NS daily prn #9.9 ml 03/25/20 mcg/actuation nasal spray,suspension Bio-K plus 1 cap PO DAILY #60 cap 05/12/20 celecoxib 100 mg capsule 100 mg PO BID #60 cap 06/13/20 cholestyramine (with sugar) 4 gram 1 pwd PO BID #378 g 08/27/20 oral powder folic acid 1 mg tablet 1 mg PO DAILY #90 tab 09/05/20 gabapentin 300 mg capsule 300 mg PO BID #90 cap 09/05/20 metoprolol tartrate 50 mg tablet 50 mg PO BID #180 tab 09/05/20 multivitamin 1 tab PO DAILY #90 tab 09/05/20 pantoprazole 40 mg tablet,delayed 40 mg PO DAILY #90 tab 09/05/20 release potassium chloride 10 mEq 10 meq PO DAILY #90 tab 09/05/20 tablet,extended release(part/cryst) thiamine HCl (vitamin B1) 100 mg 100 mg PO DAILY #90 tab 09/05/20 tablet venlafaxine 150 mg 150 mg PO DAILY #30 cap 09/05/20 capsule,extended release 24 hr venlafaxine 37.5 mg 37.5 mg PO DAILY #30 cap 09/05/20 capsule,extended release 24 hr doxepin 3 mg tablet 3 mg PO BID PRN #30 tab 10/15/20 hydroxyzine HCl 25 mg tablet 25 mg PO TID PRN #30 tab 10/17/20 Eucerin 0 g TOPICAL TID #1 unit 10/25/20 Restasis 0.4 ml OU BID #10 ea 10/25/20 diphenhydramine HCl 25 mg PO Q4H PRN PRN #20 cap 10/25/20 hydrocortisone 0 g TOPICAL TID #1 applic 10/25/20 acamprosate 333 mg tablet,delayed 333 mg PO TID #90 tab 11/26/20 release silver sulfadiazine 1 % topical 1 applic TOPICAL DAILY #25 g 01/06/21 cream ondansetron 4 mg disintegrating 4 mg PO Q8H PRN #20 tab 01/30/21 tablet Allergies Allergy/AdvReac Type Severity Reaction Status Date / Time Penicillins Allergy Mild Rash Verified 02/18/21 14:39 ramipril Allergy Unknown ITCHING Verified 02/18/21 14:39 meperidine [From Demerol] AdvReac Severe Nausea Verified 02/18/21 14:39 bupropion AdvReac Mild GI upset Verified 02/18/21 14:39 AMBER Inhibitors AdvReac Unknown COUGH Verified 02/18/21 14:39 alendronate sodium AdvReac Unknown GI Distress Verified 02/18/21 14:39 clarithromycin AdvReac Unknown intolerant Verified 02/18/21 14:39 paroxetine AdvReac Unknown Diarrhea Verified 02/18/21 14:39 General Stated Complaint: HeadInjury JORDAN: 3 Review of Systems All systems reviewed & are unremarkable except as noted in HPI and below Constitutional Constitutional: Reports as per HPI, Denies chills, Denies fever(s) and Reports headache(s) Eyes Eyes: Denies blurry vision ENT Ears, Nose, Mouth, and Throat: Denies dizziness, Reports headache(s), Denies sore throat and Denies throat swelling Cardiovascular Cardiovascular: Denies chest pain and Denies dyspnea Respiratory Respiratory: Denies cough and Denies dyspnea Gastrointestinal Gastrointestinal: Denies abdominal pain, Denies diarrhea and Denies vomiting Genitourinary Genitourinary: Denies hematuria and Denies dysuria Musculoskeletal Musculoskeletal: Denies back pain and Denies numbness Integumentary/Breasts Skin/Breast: Denies lesions and Denies rash Neurologic Neurologic: Denies dizziness, Reports headache(s), Denies localized weakness and Denies numbness Allergic/Immunologic Allergic/Immunologic: Denies throat swelling [facility] Medical History Adjustment disorder with depressed mood AMBER (acute kidney injury) Alcohol abuse Alcoholic gastritis without bleeding Alcoholic ketosis Allergic rhinitis Anemia (12/20/16) Back pain, chronic Calcific tendinitis of left shoulder CAP (community acquired pneumonia) Cataract (11/07/15) Cervical radicular pain neck pain and [facility] clinic 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) pls refrain from alcohol Chronic alcoholism she will not stop drinking unless she checks with me, so that we can help her avert withdrawal I do not think she is capable on her own--she would need placement to achieve required goal of 3 months of sobriety Chronic diarrhea Closed displaced fracture of proximal phalanx of right index finger with routine healing (06/03/17) Closed right humeral fracture Contusion of left little finger Corneal ulcer, right (~08/23/18) 08/23/18; [facility] Dehydration Depression Diarrhea Discharge planning issues DVT prophylaxis Dystrophic nail Elev transaminase/LDH due to alcohol Epigastric abdominal pain Fall as cause of accidental injury at home as place of occurrence Genital herpes simplex recurrent gential; suppressive Valtrex GERD (gastroesophageal reflux disease) GI bleed (12/20/16) Head contusion Headache History of alcohol abuse Humerus fracture (09/12/19) Right Hyperlipidemia Hypertension Incidental lung nodule, greater than or equal to 8mm 1cm, spiculated, stable for many years, recommend f/u in 6 mo Macrocytosis (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 Multiple rib fractures 03/11/19 [facility] Nausea and vomiting in adult Non-cardiac chest pain (09/21/16) [facility] 09/21/16 NEGATIVE MP Osteoarthritis Osteopenia Palliative care patient (03/21/17) Pancreatitis, alcoholic, acute Peripheral edema Pleural effusion on left 03/11/19 [facility] Presacral mass (~09/15/18) 09/15/18 [facility] Right rib fracture Sacral mass Sciatica right, epidural injuections [facility] Tendinitis of left rotator cuff Tubular adenoma of colon (01/28/17) Urinary incontinence 01/24/13 urethral suspension and sling at [facility] (bladder suspension 1991) UTI (urinary tract infection) Vision loss of right eye 08/17/18;[facility] Wernicke encephalopathy Surgical History Bladder Surgery suspension Colonoscopy - MAC (01/28/17) EGD - MAC (12/20/16) History of bilateral ligation of fallopian tubes History of Surgical Procedure a. Bladder repair. Ligation of fallopian tube Repair bladder injury, simple Family History Mother No problems noted. Father , DROWNED at age 50. No problems noted. Sister Personal history of malignant neoplasm MELANOMA Sister No problems noted. Grandfather Personal history of malignant neoplasm STOMACH Grandfather Personal history of malignant neoplasm PROSTATE Grandmother Heart disease AR Acute ill-defined cerebrovascular disease Grandmother Personal history of malignant neoplasm UTERINE Aunt , AR Heart disease AR Aunt , AR Heart disease Brother No problems noted. Social History Smoking/Tobacco Use Status: Former Tobacco Use Quit Date: 08/05/20 Smoking risk assessment performed?: Yes Alcohol Intake: current Alcohol Intake frequency: 3 or more drinks per day Alcohol type: hard liquor Drug use: Never Substance use type: does not use Current gender identity: female Do you feel safe at home: Yes Do you feel safe in your relationship?: Yes Additional Social history: Unable to obtain any history r/t patients alcohol consumption Exam Const General: cooperative and no acute distress HENMT Head: normal to inspection Face and sinus: normal facial exam Face images: 1. 2.5 cm straight laceration above L lateral eyebrow. Bleeding controlled. 2. Edema and tenderness consistent with recent sinus fracture. No open wounds. Eyes General: appearance normal, both eyes and all related structures Pupils: PERRL EOM: EOM intact bilaterally Neck Neck: normal visual inspection and No submandibular swelling Lymphatic: no lymphadenopathy noted Chest Chest: normal inspection of the chest and no tenderness Resp Effort & Inspection: normal respiratory effort and able to speak in complete sentences Auscultation: clear to auscultation bilaterally Cardio Rate: regular rate Rhythm: regular rhythm GI Inspection: normal to inspection Palpation: soft, not firm, not rigid and nontender Auscultation: normal bowel sounds Back/Spine/Pelvis Cervical Spine: cervical spinal tenderness Thoracic/Lumbar Spine: thoracic and lumbar spine normal to inspection, thoracic spinal tenderness and lumbar spinal tenderness Pelvis: no pain with anterior-posterior compression Skin General skin exam: no rashes or lesions noted Neuro General: patient alert, patient awake and patient oriented x3 Cognition: normal cognition Speech: speech normal Motor: muscle tone normal throughout Sensory Exam: no sensory deficits noted Extrem Other: Ecchymosis in various stages of healing throughout the bilateral upper and lower extremities. No new deformities noted. Normal range of motion of bilateral upper and lower extremities but with some pain in bilateral shoulders. Bilateral distal pulses intact. Right lateral distal foot notes a healing superficial first and second-degree burn with distal erosion. There is no surrounding cellulitis, crepitus or abscess. Psych Appearance: grossly normal Mental Status: mental status grossly normal Speech and Movement: speech and movement normal Affect: normal affect Course Vital Signs Vital signs: Vital Signs Temperature 98.1 F 02/18/21 14:29 Pulse 84 02/18/21 14:29 Respiratory Rate 16 02/18/21 14:29 Blood Pressure 117/75 02/18/21 14:29 Pulse Oximetry 98 02/18/21 14:29 Temperature 98.1 F 02/18/21 14:29 Temperature Source Tympanic 02/18/21 14:29 Pulse 84 02/18/21 14:29 Respiratory Rate 16 02/18/21 14:29 Respiratory Effort 02/18/21 14:35 Respiratory Depth Normal 02/18/21 14:35 Respiratory Pattern Normal 02/18/21 14:35 Blood Pressure 117/75 02/18/21 14:29 Pulse Oximetry 98 02/18/21 14:29 Oxygen Delivery Method Room Air 02/18/21 14:29 Oxygen Flow Rate 0 02/18/21 14:29 Pain Level 7 02/18/21 14:29 Comment 02/18/21 14:29
--- NOTE | 2021-02-18 15:15 | DI.CT_ITS ---
Exam(s) CT HEAD CERV SPINE FACIAL WO EXAM: CT HEAD CERV SPINE FACIAL WO CLINICAL HISTORY: s/p fall, L eyebrow laceration. TECHNIQUE: Imaging Protocol: Axial computed tomography images with coronal and sagittal reformatted images were created and reviewed COMPARISON: CT CT HEAD CERVICAL SPINE WO from 02/05/2021 FINDINGS: CT BRAIN: Patient tilted towards right side. There are no skull fractures nor fluid in the visualized paranasal sinuses. There is no evidence of intracranial hemorrhage, mass effect, or shift of midline structures. There are no extra-axial fluid collections. The ventricles are not enlarged or shifted and there is no blo od within the ventricular system nor within the basal cisterns. Is mild periventricular hypodensity consistent with chronic small vessel disease. There is atrophy c onsistent with this patient's age CT MAXILLOFACIAL BONES: There is no evidence of facial fractures nor fluid in the visualized paranasal sinuses. there is no evidence of orbital blowout fracture. Mild focal mucosal thickening in the anterior aspect of the right maxillary sinus noted. CT CERVICAL SPINE: There is reversal of normal curvature. There is advanced disc space narrowing at multiple levels in the cervical spine, most evident at C 4-5, C5-6, and C6-7 levels. There is also degenerative anterol isthesis of C3 upon C4, approximately 4 millimeters. This is related to degenerative facet joint roxanne nges. Also mild degenerative anterolisthesis C5 upon C6. There is multilevel facet arthropathy but no facet malalignment. Multilevel disc-osteophyte complexes from C4 through C6. There is no evidence of fracture nor listhesis. No significant prevertebral soft tissue swelling. N o significant osseous lesions . IMPRESSION: Advanced multilevel degenerative disc disease and degenerative facet arthropathy. Reversal of the no rmal curvature which probably related to chronic muscle spasm. Degenerative listhesis. No acute fra ctures evident. No evidence of facial nor orbital blowout fractures. No evidence of cervical spine fracture, malalignment, nor acute compromise of the cervical spinal can al. RADIATION DOSE DELIVERED: 1,521.95mGy.cm Total DLP DATA REPOSITORY: All CT scans at this facility are submitted to the National Radiology Data Registry (NRDR) Dose Index Registry (DIR) with the [employer] ([employer]). RADIATION OPTIMIZATION: All CT scans at this facility use at least one of these dose optimization te chniques: automated exposure control; mA and/or kV adjustment per patient size (includes targeted exa ms where dose is matched to clinical indication); or iterative reconstruction.
[2021-02-18 15:48] VITALS: BP 120/78; PULSE 91; RESP 16; O2SAT 98
[2021-02-18] MEDS: Normal Saline 500 ML IV (15:58)
[2021-02-18 16:09] LABS: Abs Immature Grans 0.02 10^3/uL (0.0-0.06); Absolute Basophil Count 0.02 10^3/uL (0.0-0.2); Absolute Lymphocyte Count 1.02 10^3/uL (1.2-3.4); Absolute Monocyte Count 0.47 10^3/uL (0.1-0.8); Absolute Neutrophil Count 2.47 10^3/uL (1.2-6.7); Basophils % 0.5; HCT 34.1 % (36.0-46.0); HGB 11.3 g/dL (11.2-15.7); Immature Grans % 0.5; Lymphocytes % 25.5; MCHC 33.1 % (32.0-36.0); MCV 99.7 fL (80-95); MPV 9.1 fL (8.0-11.0); Monocytes % 11.8; Neutrophils % 61.7; Nucleated RBC 0 %; Platelet Count 212 10^3/uL (130-400); RBC 3.42 10^6/uL (3.93-5.22); RDW 14.3 % (11.7-14.6)
[2021-02-18 16:20] LABS: ALT 35 U/L (14-59); AST 40 U/L (15-37); Albumin 3.5 g/dL (3.4-5.0); Alkaline Phosphatase 143 U/L (46-116); Anion Gap 17.3 mmol/L (3-11); BUN 14 mg/dL (7-18); Bilirubin, Total 1.9 mg/dL (0.2-1.0); CO2 22.7 mmol/L (21.0-32.0); CREATININE 1.3 mg/dL (0.55-1.02); Calcium 9.1 mg/dL (8.5-10.1); Chloride 97 mmol/L (98-107); Estimated GFR 40.04 (mL/min/1.73m2); Glucose 120 mg/dL (74-106); Magnesium 1.4 mg/dL (1.8-2.4); Potassium 3.7 mmol/L (3.5-5.1); Sodium 137 mmol/L (136-145)
--- NOTE | 2021-02-18 16:49 | DI.VRAD_ITS ---
PROCEDURE INFORMATION: Exam: CT Head Without Contrast Exam date and time: 02/18/2021 3:29 PM Age: 75 years old Clinical indication: Injury or trauma; Fall; Blunt trauma (contusions or hematomas); Cheek bone; Not specified TECHNIQUE: Imaging protocol: Computed tomography of the head without contrast. COMPARISON: 1. CT HEAD CERVICAL SPINE WO 02/05/2021 8:[address] HEAD CERV SPINE FACIAL WO 01/27/2021 10:02 PM FINDINGS: Brain: Mild low attenuation in the periventricular white matter. This is a nonspecific finding most commonly seen in setting of microvascular ischemic change. Moderate involutional changes of the brain parenchyma. No evidence of acute infarct. No intraparenchymal hemorrhage. No midline shift or mass effect. No extra-axial fluid collections or hemorrhage. Cerebral ventricles: No ventriculomegaly. Paranasal sinuses: Mucous retention cyst versus polyp in a left anterior ethmoid air cell and in the right maxillary sinus. Otherwise normal aeration of the paranasal sinuses. Mastoid air cells: Visualized mastoid air cells are well aerated. Bones/joints: Unremarkable. No acute fracture. Soft tissues: Unremarkable. IMPRESSION: No evidence of acute intracranial abnormality. PROCEDURE INFORMATION: Exam: CT Maxillofacial Without Contrast Exam date and time: 02/18/2021 3:29 PM Age: 75 years old Clinical indication: Injury or trauma; Fall; Blunt trauma (contusions or hematomas); Cheek bone; Not specified TECHNIQUE: Imaging protocol: Computed tomography images of the face without contrast. COMPARISON: 1. CT HEAD CERVICAL SPINE WO 02/05/2021 8:[address] HEAD CERV SPINE FACIAL WO 01/27/2021 10:02 PM FINDINGS: Orbital cavity: Orbits are normal. Globes are unremarkable. Bones/joints: No acute fracture. Paranasal sinuses: Normal. No air-fluid levels. Soft tissues: Unremarkable. IMPRESSION: No acute findings. PROCEDURE INFORMATION: Exam: CT Cervical Spine Without Contrast Exam date and time: 02/18/2021 3:29 PM Age: 75 years old Clinical indication: Injury or trauma; Fall; Blunt trauma (contusions or hematomas); Cheek bone; Not specified TECHNIQUE: Imaging protocol: Computed tomography images of the cervical spine without contrast. COMPARISON: 1. CT HEAD CERVICAL SPINE WO 02/05/2021 8:[address] HEAD CERV SPINE FACIAL WO 01/27/2021 10:02 PM FINDINGS: Bones/joints: Stable mild reversal of the normal cervical lordosis. Stable mild anterolisthesis of C3 on C4, and of C5 on C6, measuring 4 mm. Discs/Spinal canal/Neural foramina: Severe multilevel degenerative changes of the cervical spine, with findings including disc space narrowing, uncovertebral hypertrophy, facet arthropathy, marginal osteophytes, and disc osteophyte complexes, greatest at C4-C6. Lungs: Lung apices are normal. Soft tissues: Unremarkable. IMPRESSION: 1. No evidence of acute fracture of the cervical spine. 2. Stable mild reversal of the normal cervical lordosis. 3. Stable mild anterolisthesis of C3 on C4, and of C5 on C6, measuring 4 mm. 4. Severe multilevel degenerative disc disease. Dictated and Authenticated by: Lori Mendoza MD. Ordering:KATE Guzman MD
--- NOTE | 2021-02-18 16:50 | DI.VRAD_ITS ---
PROCEDURE INFORMATION: Exam: CT Thoracic Spine Without Contrast Exam date and time: 02/18/2021 3:36 PM Age: 75 years old Clinical indication: Other: S/P fall, R/O acute FX TECHNIQUE: Imaging protocol: Computed tomography images of the thoracic spine without contrast. Radiation optimization: All CT scans at this facility use at least one of these dose optimization techniques: automated exposure control; mA and/or kV adjustment per patient size (includes targeted exams where dose is matched to clinical indication); or iterative reconstruction. COMPARISON: 1. CT THORACIC LUMBAR SPINE REC 11/10/2020 11:[address] CHEST/ABD/PEL W 12/13/2020 7:12 PM FINDINGS: Vertebrae: There is compression deformity of the T12 vertebra at its inferior endplate where there are vertical linear lucencies seen, suggestive of a recent compression fracture. Some vertebral body height loss of T6 without definite fracture line seen possibly chronic compression deformity. Discs/Spinal canal/Neural foramina: There is moderate T10-T11 disc space narrowing. Other bones/joints: There are chronic appearing right 4th through 10th rib fractures. There are chronic appearing left 5th through 10th rib fractures. Soft tissues: Unremarkable. Lungs: There is a stable, spiculated 11 mm nodular opacity in the posterior right upper lobe. IMPRESSION: 1. Inferior endplate compression deformity of T12 with vertical linear lucencies suggestive of recent compression fracture. 2. Vertebral body height loss of T6 consistent with age indeterminate compression deformity, but no fracture line seen, possibly chronic. 3. Numerous bilateral chronic appearing rib fractures. 4. Stable 11 mm nodular opacity in the posterior right upper lobe. PROCEDURE INFORMATION: Exam: CT Lumbar Spine Without Contrast Exam date and time: 02/18/2021 3:36 PM Age: 75 years old Clinical indication: Other: S/P fall, R/O acute FX TECHNIQUE: Imaging protocol: Computed tomography images of the lumbar spine without contrast. Radiation optimization: All CT scans at this facility use at least one of these dose optimization techniques: automated exposure control; mA and/or kV adjustment per patient size (includes targeted exams where dose is matched to clinical indication); or iterative reconstruction. COMPARISON: 1. CT THORACIC LUMBAR SPINE REC 11/10/2020 11:[address] CHEST/ABD/PEL W 12/13/2020 7:12 PM FINDINGS: Vertebrae: No acute fracture. There is L4-L5 anterolisthesis due to facet arthropathy. Discs/Spinal canal/Neural foramina: There is severe disc space narrowing at L1-L2, L2-L3 and L4-L5. Liver: There is a diffuse decrease in hepatic parenchymal density, consistent with fatty infiltration. There is no evidence for a mass. Kidneys and ureters: There are bilateral renal cysts. There is 5 mm hyperdense lesion in the left kidney, possibly a hemorrhagic cyst. Soft tissues: Unremarkable. IMPRESSION: 1. No evidence for compression deformity of the lumbar vertebrae. 2. Multilevel degenerative disc disease. 3. Bilateral renal cysts. 5 mm hyperdense lesion in the left kidney, possibly a hemorrhagic cyst. This can be further evaluated with renal ultrasound. Dictated and Authenticated by: Saeed Crow MD. Ordering:KATE Guzman MD
--- NOTE | 2021-02-18 18:38 | DI.VRAD_ITS ---
PROCEDURE INFORMATION: Exam: CT Chest Without Contrast; Diagnostic Exam date and time: 02/18/2021 3:36 PM Age: 75 years old Clinical indication: Other: Trauma TECHNIQUE: Imaging protocol: Diagnostic computed tomography of the chest without contrast. Radiation optimization: All CT scans at this facility use at least one of these dose optimization techniques: automated exposure control; mA and/or kV adjustment per patient size (includes targeted exams where dose is matched to clinical indication); or iterative reconstruction. COMPARISON: 1. CT CHEST/ABD/PEL W 12/13/2020 7:[address] CHEST/ABD/PEL WO 11/10/2020 11:30 PM FINDINGS: Lungs: There is a stable 11 mm spiculated pulmonary nodule in the posterior right upper lobe. No consolidation. No masses. Pleural spaces: Unremarkable. No pneumothorax. No pleural effusion. Heart: Unremarkable. No cardiomegaly. No pericardial effusion. Aorta: Unremarkable. No aortic aneurysm. Lymph nodes: Unremarkable. No enlarged lymph nodes. Bones/joints: There is a compression deformity of the T12 vertebra at the inferior endplate with fracture line seen compatible with recent compression fracture. There is also mild compression deformity of T6 which is age indeterminate, possibly chronic. There are stable right 4th through 10th and left 5th through 10th nonacute appearing rib fractures. Soft tissues: Unremarkable. IMPRESSION: 1. Recent appearing compression fracture of the T12 vertebra. 2. Stable nonacute appearing numerous bilateral rib fractures. 3. Stable 11 mm spiculated right upper lobe pulmonary nodule. PROCEDURE INFORMATION: Exam: CT Abdomen And Pelvis Without Contrast Exam date and time: 02/18/2021 3:36 PM Age: 75 years old Clinical indication: Other: Trauma TECHNIQUE: Imaging protocol: Computed tomography of the abdomen and pelvis without contrast. Radiation optimization: All CT scans at this facility use at least one of these dose optimization techniques: automated exposure control; mA and/or kV adjustment per patient size (includes targeted exams where dose is matched to clinical indication); or iterative reconstruction. COMPARISON: 1. CT CHEST/ABD/PEL W 12/13/2020 7:[address] CHEST/ABD/PEL WO 11/10/2020 11:30 PM FINDINGS: Limitations: Evaluation of the solid organs and vasculature is limited wiithout IV contrast. Liver: There is a diffuse decrease in hepatic parenchymal density, consistent with fatty infiltration. There is no evidence for a mass. Gallbladder and bile ducts: Distended. No calcified stones. No ductal dilation. Pancreas: Unremarkable. No ductal dilation. Spleen: Unremarkable. No splenomegaly. Adrenal glands: There is possible nodule in the left adrenal gland measuring 19 mm x 12 mm, unchanged. Kidneys and ureters: There are bilateral renal cysts. There is a 5 mm high-density lesion in the left kidney, possibly a hemorrhagic cyst.. No hydronephrosis. No evidence for nephrolithiasis. Stomach and bowel: Unremarkable. No obstruction. No mucosal thickening. Appendix: No evidence of appendicitis. Intraperitoneal space: Unremarkable. No free air. No significant fluid collection. Vasculature: Unremarkable. No abdominal aortic aneurysm. Lymph nodes: Unremarkable. No enlarged lymph nodes. Urinary bladder: Unremarkable as visualized. Reproductive: Unremarkable as visualized. Bones/joints: There are degenerative changes of the lumbosacral spine. No acute fracture identified. Soft tissues: There are bilateral fat containing inguinal hernias. Other findings: There is a stable lobulated presacral mass, measuring 4.4 cm AP x 2.8 cm transverse x 4.6 cm craniocaudal. IMPRESSION: 1. Stable lobulated presacral mass. 2. Stable bilateral renal cysts. A 5 mm high-density lesion in the left kidney, possibly a hemorrhagic cyst. This can be further evaluated with renal ultrasound. 3. Stable possible left adrenal nodule. Dictated and Authenticated by: Saeed Crow MD. Ordering:KATE Guzman MD
--- NOTE | 2021-02-18 18:46 | NUR.NOTE ---
Nursing Note: referral to cm for spine clinic referral
== END 2021-02-18 18:20 | disposition home or self-care (01) ==
PROVIDERS: Emergency Provider Physician Assistant; PCP Family Medicine
DX: S01.112A Laceration without foreign body of left eyelid and periocular area, initial encounter (principal); S22.080A Wedge compression fracture of T11-T12 vertebra, initial encounter for closed fracture; R22.2 Localized swelling, mass and lump, trunk; W01.198A Fall on same level from slipping, tripping and stumbling with subsequent striking against other object, initial encounter
CPT/HCPCS: 12001; 36415; 71250; 80053; 96360; 99284; 70450; 70486; 72125; 74176; 83735; 85025

== ENCOUNTER 2021-03-06 10:27 | Emergency (ER) | payer OTHER, SELFPAY ==
[2021-03-06] VITALS (74 sets, daily range): BP systolic 118–213; BP diastolic 61–101; PULSE 79–116; RESP 0–24; TEMP 36.4–37; O2SAT 91–98
--- NOTE | 2021-03-06 10:39 | NUR.NOTE ---
Nursing Note: Pt declining IV and labs at this time. States this is not needed, it's going to tell you the same thing it always does- I'm drunk. made aware, per Dr. Crenshaw will hold off IV and labs at this time. Pt resting quietly at this time on the monitor, calm.
--- NOTE | 2021-03-06 12:54 | NUR.NOTE ---
pt sleeping comfortably at this time. vs stable. will cont to monitor:
--- NOTE | 2021-03-06 14:54 | ED.GENADUL_ITS ---
Discharge Plan Disposition Patient Disposition: HOME Condition: Stable Discharge Details Clinical Impression: Alcohol intoxication, Anemia, UTI (urinary tract infection), Leukopenia, Depression Primary Care Provider: Lavelle Galindo ED Provider: Karol Crenshaw Home Meds and New Rx's Prescriptions: New cephalexin 500 mg capsule 500 mg PO BID 7 Days Qty: 13 RF: 0 Continued Xiidra 5 % dropperette 1 drp ophthalmic (eye) BID RF: 0 acamprosate 333 mg tablet,delayed release (DR/EC) 333 mg PO TID Qty: 90 RF: 2 magnesium oxide 400 mg magnesium capsule 400 mg PO BID Qty: 180 RF: 3 celecoxib [Celebrex] 100 mg capsule 100 mg PO BID Qty: 60 RF: 2 cholestyramine (with sugar) 4 gram powder 1 pwd PO BID Qty: 378 RF: 0 Ensure Active High Protein Liquid 414 ml PO DAILY Qty: 71866 RF: 11 dicyclomine 10 mg capsule 10 mg PO QID PRN (Reason: belly pain) Qty: 40 RF: 0 sucralfate 1 gram tablet 1 g PO AC & HS Qty: 120 RF: 5 ipratropium-albuterol 0.5 mg-3 mg(2.5 mg base)/3 mL solution for nebulization 3 ml IH QID PRN (Reason: shortness of breath) Qty: 90 RF: 3 fluticasone propionate 50 mcg/actuation spray,suspension 1 spray NS daily prn Qty: 9.9 RF: 2 gabapentin 300 mg capsule 300 mg PO BID Qty: 90 RF: 5 metoprolol tartrate 50 mg tablet 50 mg PO BID Qty: 180 RF: 3 multivitamin [Multiple Vitamins] Tablet 1 tab PO DAILY Qty: 90 RF: 3 pantoprazole 40 mg tablet,delayed release (DR/EC) 40 mg PO DAILY Qty: 90 RF: 3 potassium chloride [Klor-Con M10] 10 mEq tablet,ER particles/crystals 10 meq PO DAILY Qty: 90 RF: 3 venlafaxine 37.5 mg capsule,extended release 24hr 37.5 mg PO DAILY Qty: 30 RF: 11 venlafaxine 150 mg capsule,extended release 24hr 150 mg PO DAILY Qty: 30 RF: 11 thiamine HCl (vitamin B1) 100 mg tablet 100 mg PO DAILY Qty: 90 RF: 3 folic acid 1 mg tablet 1 mg PO DAILY Qty: 90 RF: 3 doxepin 3 mg tablet 3 mg PO BID PRN (Reason: itch) Qty: 30 RF: 0 hydroxyzine HCl 25 mg tablet 25 mg PO TID PRN (Reason: itching) Qty: 30 RF: 2 silver sulfadiazine [Silvadene] 1 % cream 1 applic topical DAILY Qty: 25 RF: 1 ondansetron 4 mg tablet,disintegrating 4 mg PO Q8H PRN (Reason: nausea and vomiting) Qty: 20 RF: 0 Refresh Plus 0.5 % Dropperette 1 drp OU Q4H WHILE AWAKE Qty: 30 RF: 0 diphenhydramine HCl 25 mg Capsule 25 mg PO Q4H PRN PRNQty: 20 RF: 0 Restasis 0.05 % Dropperette 0.4 ml OU BID Qty: 10 RF: 0 hydrocortisone 1 % Cream 0 g topical TID Qty: 1 RF: 2 Eucerin Cream 0 g topical TID Qty: 1 RF: 1 Bio-K plus 50 billion cell Capsule,Delayed Release(Dr/Ec) 1 cap PO DAILY Qty: 60 RF: 0 sennosides [Senokot] 8.6 mg tablet 8.6 mg PO PRN PRNRF: 0 naltrexone 50 mg tablet 50 mg PO DAILY RF: 0 amlodipine 5 mg tablet 5 mg PO DAILY RF: 0 Discharge Instructions Instructions: Urinary Tract Infection in Women (ED), Depression (ED), Alcohol Intoxication (ED), Anemia (ED) Additional Instructions: Please return immediately to the emergency department if you develop any new or worsening symptoms, if your condition does not improve as expected, or if you become otherwise concerned. It is extremely important that you call soon as possible to make an appointment to be seen in follow-up for this visit by your primary care doctor. Referrals: Lavelle Galindo [Primary Care Provider] - Discharge Data Discharge Date/Time-TO BE ENTERED AT DEPARTURE: 03/06/21 23:50 Medical Decision Making <James Crenshaw MD - Last Filed: 03/07/21 09:53> 75-year-old female with multiple medical problems including history of alcohol use disorder, depression, here with alcohol intoxication and depression. Patient refusing all treatment on arrival. She is clinically intoxicated. Plan to observe and monitor for safety and reassess when clinically sober. On reassessment, patient speech more coherent. Her home caregiver is now here and has convince patient to allow for diagnostic labs to be performed. Patient now agreeable to IV access. Consider electrolyte abnormalities. I will obtain chemistry. We will give IV fluid and multivitamin including thiamine IV. Care signed out to Dr. Karol Cresnhaw with plan to follow-up on labs and reassess patient for disposition. <Karol Crenshaw MD - Last Filed: 03/09/21 08:33> Leticia Garza is a 25-year-old woman with a history of alcohol use disorder, hypertension, hyperlipidemia who presented to emergency department with alcohol intoxication, depression signed out to me by Dr. James Crenshaw at time of shift change with evaluation of right foot, reassessment after clinical sobriety pending. On my assessment patient is alert and oriented x3. She has clear speech and a lucid thought process. Patient reports that her right foot has been hurting for approximately 3 weeks and is causing her to limp. She reports diffuse pain in the distal aspect of the foot. Patient reports that she did drop boiling water on her right foot 2 to 3 weeks ago when she was cooking eggs, and thinks at some point she might have hit her foot against something, but is unsure of other trauma. She denies pain other than to her right foot. There is healing superficial burn to the dorsal distal aspect of the right foot, no war mth/erythema, no tenderness palpation. There is diffuse mild tenderness to palpation across the plantar MTPs. Patient is ranging her toes without issue. Brisk cap refill of all toes. There is no tenderness palpation of the right ankle. DP pulses are intact. Foot is neurovascularly intact. X-ray ordered. Exam/history at this time is not consistent with ankle fracture, other significant extremity trauma, vascular pathology. Labs reviewed. Patient with anemia, leukopenia which has been present in the past and will require outpatient follow-up. Mild hypomagnesiemia at 1.6 is present, patient did receive magnesium today and has magnesium prescribed as an outpatient. Xray negative. I discussed patient's statements made earlier about not caring if she lives or dies with the patient. Patient reports that over the past 18 months her mobility has been significantly decreased, and she is essentially stuck at home. Patient reports that her hearing and eyesight are poor which also limits her activities. Patient reports that she has felt very depressed and essentially does not care if she lives or dies. Patient reports that this is unchanged over the past few months. She denies any attempt to harm herself or any intention or plan to harm herself. Patient states that she would never hurt herself because she needs to care for her cat and her dog. Patient states that she does feel lonely at home as her caregivers only present with her for 2 hours a day 4 days a week. On my assessment patient does not express any acute suicidality, however given her depression and chronic alcohol use disorder, plan for mental health evaluation. Patient evaluated by mental health. Mental health agrees that there is no acute suicidality, does not meet any criteria for admission, patient also states adamantly to both mental health and myself that she wants to go home and does not want to be admitted. Patient has chronic depression that is progressing somewhat at this point. Requested care management involvement for resources to increase patient's care at home and perhaps improve her home life. Discussed patient over the phone with care management, who will place referrals for the [facility] [place] [facility] and also for possible day programs. Patient is requesting to go home. Patient is clinically sober at this point. She is having no symptoms of withdrawal. women's swim coach contacted. Patient reporting some dysuria over the past few days. UA consistent with UTI, will treat with Keflex (patient has received ceftriaxone in the past low suspicion for crossover reaction with penicillin allergy). Patient noted to have blood pressure elevated at 213/106 with heart rate of 116. Patient denies anxiety, shaking, other symptoms of withdrawal. On examination patient is calm, well-appearing, nontoxic. There is no agitation or tremor. Patient has not received her nighttime metoprolol. I did discuss patient for possible admission with hospitalist Dr. Blake. He states that patient has been admitted multiple times in the past for alcohol cessation, and patient does not experience severe withdrawal symptoms during admission. We will plan for metoprolol, Ativan, reassessment. Patient reassessed, blood pressure 177/91, heart rate 106. She remains calm, cooperative, no agitation, no tremor. Not experiencing current withdrawal symptoms. Patient is comfortable with discharge at this time. She does have a history of noncompliance with her medications and it is not clear whether she has been taking her medications regularly. Given patient's many historic adm issions, including 11/16 and 12/17 the patient continuing to drink alcohol, patient stating that she believes she will continue to drink alcohol, admission is unlikely to be beneficial. Exam/history at this time is not consistent with acute alcohol withdrawal, other acute emergent medical condition. I had a lengthy discussion with Patient regarding return to emergency department precautions, home care, and importance of outpatient follow-up. Pt verbalizes understanding of the plan and is amenable. Patient discharged to home with clear plan for outpatient follow-up. All questions were answered. Disposition decision was made weighing the risks and benefits of hospitalization versus outpatient treatment, the risk for further decompensation, and the patient's wishes. Medical Records Medical records reviewed: Yes I reviewed the patient's medical records. Imaging Data Radiologic Study: Attestation: I personally reviewed and interpreted this imaging study as follows: Radiologist's impression: Exam: XR Right Foot Exam date and time: 03/06/2021 3:59 PM Age: 75 years old Clinical indication: Patient HX: Right foot pain TECHNIQUE: Imaging protocol: XR Right foot. Views: 3 or more views. COMPARISON: CR RIGHT FOOT COMPLETE 02/17/2016 3:57 PM FINDINGS: Bones/joints: Normal. Soft tissues: Normal. IMPRESSION: No acute findings. Lab Data Lab results reviewed: Yes I reviewed the patient's lab results. Labs: Laboratory Tests Range/Units 03/06/21 03/06/21 03/06/21 15:10 15:10 17:38 WBC (4.4-10.8) 10^3/uL 2.10 L RBC (3.93-5.22) 10^6/uL 3.12 L Hgb (11.2-15.7) g/dL 10.7 L Hct (36.0-46.0) % 32.7 L MCV (80-95) fL 104.8 H MCH (27.0-33.0) pg 34.3 H MCHC (32.0-36.0) % 32.7 RDW (11.7-14.6) % 15.2 H Plt Count (130-400) 10^3/uL 160 MPV (8.0-11.0) fL 8.8 Immature Gran % 1.0 Neutrophils % 37.5 Lymphocytes % 50.0 Monocytes % 10.5 Eosinophils % 0.0 Basophils % 1.0 Nucleated RBC % % 0 Absolute Neutrophils (1.2-6.7) 10^3/uL 0.79 L Absolute Lymphocytes (1.2-3.4) 10^3/uL 1.05 L Absolute Monocytes (0.1-0.8) 10^3/uL 0.22 Absolute Eosinophils (0.0-0.7) 10^3/uL 0.00 Absolute Basophils (0.0-0.2) 10^3/uL 0.02 RBC Morphology See Below Macrocytosis 2+ Sodium (136-145) mmol/L 145 Potassium (3.5-5.1) mmol/L 3.8 Chloride (98-107) mmol/L 107 Carbon Dioxide (21.0-32.0) mmol/L 25.4 Anion Gap (3-11) mmol/L 12.6 H BUN (7-18) mg/dL 10 Creatinine (0.55-1.02) mg/dL 0.7 Estimated GFR/1.73 m2 (mL/min/1.73m2) >= 60.00 Glucose (74-106) mg/dL 97 Calcium (8.5-10.1) mg/dL 9.0 Magnesium (1.8-2.4) mg/dL 1.6 L Total Bilirubin (0.2-1.0) mg/dL 0.7 AST (15-37) U/L 103 H ALT (14-59) U/L 56 Alkaline Phosphatase (46-116) U/L 127 H Total Protein (6.4-8.2) g/dL 6.3 L Albumin (3.4-5.0) g/dL 3.1 L Urine Color (Yellow) Urine Clarity (Clear) Urine pH (5-8) Ur Specific [place] (1.005-1.025) Urine Protein (Negative) mg/dL Urine Ketones (Negative) mg/dL Urine Blood (Negative) Urine Nitrite (Negative) Urine Bilirubin (Negative) Urine Urobilinogen (Up TO 0.2) EU/dL Ur Leukocyte Esterase (Negative) Urine RBC (0-2) HPF Urine WBC (0-5) HPF Ur Epithelial Cells (Negative) HPF Urine Crystals (Negative) HPF Urine Bacteria (Negative) HPF Urine Casts (Negative) LPF Urine Mucus (Negative) Urine Other (Negative) Ur Culture Indicated? Urine Glucose (Negative) mg/dL Urine Opiates Screen (Negative) Negative Urine Methadone Screen (Negative) Negative Ur Barbiturates Screen (Negative) Negative Ur Tricyclics Screen (Negative) Negative Ur Amphetamines Screen (Negative) Negative U Benzodiazepines Scrn (Negative) Negative Urine Cocaine Screen (Negative) Negative Ur THC Screen (Negative) Negative Ethyl Alcohol (<3) mg/dL 240.9 Range/Units 03/06/21 17:38 WBC (4.4-10.8) 10^3/uL RBC (3.93-5.22) 10^6/uL Hgb (11.2-15.7) g/dL Hct (36.0-46.0) % MCV (80-95) fL MCH (27.0-33.0) pg MCHC (32.0-36.0) % RDW (11.7-14.6) % Plt Count (130-400) 10^3/uL MPV (8.0-11.0) fL Immature Gran % Neutrophils % Lymphocytes % Monocytes % Eosinophils % Basophils % Nucleated RBC % % Absolute Neutrophils (1.2-6.7) 10^3/uL Absolute Lymphocytes (1.2-3.4) 10^3/uL Absolute Monocytes (0.1-0.8) 10^3/uL Absolute Eosinophils (0.0-0.7) 10^3/uL Absolute Basophils (0.0-0.2) 10^3/uL RBC Morphology Macrocytosis Sodium (136-145) mmol/L Potassium (3.5-5.1) mmol/L Chloride (98-107) mmol/L Carbon Dioxide (21.0-32.0) mmol/L Anion Gap (3-11) mmol/L BUN (7-18) mg/dL Creatinine (0.55-1.02) mg/dL Estimated GFR/1.73 m2 (mL/min/1.73m2) Glucose (74-106) mg/dL Calcium (8.5-10.1) mg/dL Magnesium (1.8-2.4) mg/dL Total Bilirubin (0.2-1.0) mg/dL AST (15-37) U/L ALT (14-59) U/L Alkaline Phosphatase (46-116) U/L Total Protein (6.4-8.2) g/dL Albumin (3.4-5.0) g/dL Urine Color (Yellow) Yellow Urine Clarity (Clear) Clear Urine pH (5-8) 6.0 Ur Specific [place] (1.005-1.025) 1.020 Urine Protein (Negative) mg/dL Negative Urine Ketones (Negative) mg/dL Negative Urine Blood (Negative) Small H Urine Nitrite (Negative) Positive H Urine Bilirubin (Negative) Negative Urine Urobilinogen (Up TO 0.2) EU/dL 1.0 H Ur Leukocyte Esterase (Negative) Trace H Urine RBC (0-2) HPF 0-2 Urine WBC (0-5) HPF 5-10 Ur Epithelial Cells (Negative) HPF Many Urine Crystals (Negative) HPF Negative Urine Bacteria (Negative) HPF Many Urine Casts (Negative) LPF Negative Urine Mucus (Negative) Negative Urine Other (Negative) Negative Ur Culture Indicated? No/Sq. Contamination Urine Glucose (Negative) mg/dL Negative Urine Opiates Screen (Negative) Urine Methadone Screen (Negative) Ur Barbiturates Screen (Negative) Ur Tricyclics Screen (Negative) Ur Amphetamines Screen (Negative) U Benzodiazepines Scrn (Negative) Urine Cocaine Screen (Negative) Ur THC Screen (Negative) Ethyl Alcohol (<3) mg/dL HPI <James Crenshaw MD - Last Filed: 03/07/21 09:53> General Mode of arrival: EMS . Date/Time Provider Initiated Documentation: 03/06/21 11:26 . Limitations to Documentation: altered mental status . Information obtained by: EMS . HPI Narrative: 75-year-old female multiple medical problems including history of alcohol use disorder, frequent ED visits for intoxication and depression, here today at the prompting of her home caregiver with intoxication from heavy consumption of alcohol and depression. History and review of systems is limited as patient is not forthcoming. She is refusing to allow for diagnostics and treatment. She notes she has been drinking alcoholic beverages since 4 AM today. Related Data Home Medications Medication Instructions Recorded Confirmed Refresh Plus 1 drp OU Q4H WHILE AWAKE #30 each 06/20/19 03/04/21 magnesium oxide 400 mg PO BID #180 cap 07/17/19 03/04/21 food supplemt, lactose-reduced 414 ml PO DAILY #81821 ml 08/24/19 03/04/21 dicyclomine 10 mg capsule 10 mg PO QID PRN #40 cap 11/06/19 03/04/21 sucralfate 1 gram tablet 1 g PO AC & HS #120 tab 11/06/19 03/04/21 ipratropium 0.5 mg-albuterol 3 mg 3 ml IH QID PRN #90 ml 01/04/20 03/04/21 (2.5 mg base)/3 mL nebulization soln fluticasone propionate 50 1 spray NS daily prn #9.9 ml 03/25/20 03/04/21 mcg/actuation nasal spray,suspension Bio-K plus 1 cap PO DAILY #60 cap 05/12/20 03/04/21 celecoxib 100 mg capsule 100 mg PO BID #60 cap 06/13/20 03/04/21 lifitegrast 5 % eye drops in a 1 drp OPHTHALMIC (EYE) BID 08/05/20 03/04/21 dropperette sennosides [Senokot] 8.6 mg PO PRN PRN 08/08/20 03/04/21 cholestyramine (with sugar) 4 gram 1 pwd PO BID #378 g 08/27/20 03/04/21 oral powder folic acid 1 mg tablet 1 mg PO DAILY #90 tab 09/05/20 03/04/21 gabapentin 300 mg capsule 300 mg PO BID #90 cap 09/05/20 03/04/21 metoprolol tartrate 50 mg tablet 50 mg PO BID #180 tab 09/05/20 03/04/21 multivitamin 1 tab PO DAILY #90 tab 09/05/20 03/04/21 pantoprazole 40 mg tablet,delayed 40 mg PO DAILY #90 tab 09/05/20 03/04/21 release potassium chloride 10 mEq 10 meq PO DAILY #90 tab 09/05/20 03/04/21 tablet,extended release(part/cryst) thiamine HCl (vitamin B1) 100 mg 100 mg PO DAILY #90 tab 09/05/20 03/04/21 tablet venlafaxine 150 mg 150 mg PO DAILY #30 cap 09/05/20 03/04/21 capsule,extended release 24 hr venlafaxine 37.5 mg 37.5 mg PO DAILY #30 cap 09/05/20 03/04/21 capsule,extended release 24 hr doxepin 3 mg tablet 3 mg PO BID PRN #30 tab 10/15/20 03/04/21 hydroxyzine HCl 25 mg tablet 25 mg PO TID PRN #30 tab 10/17/20 03/04/21 Eucerin 0 g TOPICAL TID #1 unit 10/25/20 03/04/21 Restasis 0.4 ml OU BID #10 ea 10/25/20 03/04/21 diphenhydramine HCl 25 mg PO Q4H PRN PRN #20 cap 10/25/20 03/04/21 hydrocortisone 0 g TOPICAL TID #1 applic 10/25/20 03/04/21 amlodipine 5 mg PO DAILY 11/12/20 03/04/21 naltrexone 50 mg PO DAILY 11/12/20 03/04/21 acamprosate 333 mg tablet,delayed 333 mg PO TID #90 tab 11/26/20 03/04/21 release silver sulfadiazine 1 % topical 1 applic TOPICAL DAILY #25 g 01/06/21 03/04/21 cream ondansetron 4 mg disintegrating 4 mg PO Q8H PRN #20 tab 01/30/21 03/04/21 tablet cephalexin 500 mg PO BID 7 Days #13 cap 03/06/21 Previous Rx's Medication Instructions Recorded Refresh Plus 1 drp OU Q4H WHILE AWAKE #30 each 06/20/19 magnesium oxide 400 mg PO BID #180 cap 07/17/19 food supplemt, lactose-reduced 414 ml PO DAILY #51376 ml 08/24/19 dicyclomine 10 mg capsule 10 mg PO QID PRN #40 cap 11/06/19 sucralfate 1 gram tablet 1 g PO AC & HS #120 tab 11/06/19 ipratropium 0.5 mg-albuterol 3 mg 3 ml IH QID PRN #90 ml 01/04/20 (2.5 mg base)/3 mL nebulization soln fluticasone propionate 50 1 spray NS daily prn #9.9 ml 03/25/20 mcg/actuation nasal spray,suspension Bio-K plus 1 cap PO DAILY #60 cap 05/12/20 celecoxib 100 mg capsule 100 mg PO BID #60 cap 06/13/20 cholestyramine (with sugar) 4 gram 1 pwd PO BID #378 g 12/30/20 oral powder folic acid 1 mg tablet 1 mg PO DAILY #90 tab 09/05/20 gabapentin 300 mg capsule 300 mg PO BID #90 cap 09/05/20 metoprolol tartrate 50 mg tablet 50 mg PO BID #180 tab 09/05/20 multivitamin 1 tab PO DAILY #90 tab 09/05/20 pantoprazole 40 mg tablet,delayed 40 mg PO DAILY #90 tab 09/05/20 release potassium chloride 10 mEq 10 meq PO DAILY #90 tab 09/05/20 tablet,extended release(part/cryst) thiamine HCl (vitamin B1) 100 mg 100 mg PO DAILY #90 tab 09/05/20 tablet venlafaxine 150 mg 150 mg PO DAILY #30 cap 09/05/20 capsule,extended release 24 hr venlafaxine 37.5 mg 37.5 mg PO DAILY #30 cap 09/05/20 capsule,extended release 24 hr doxepin 3 mg tablet 3 mg PO BID PRN #30 tab 10/15/20 hydroxyzine HCl 25 mg tablet 25 mg PO TID PRN #30 tab 10/17/20 Eucerin 0 g TOPICAL TID #1 unit 10/25/20 Restasis 0.4 ml OU BID #10 ea 10/25/20 diphenhydramine HCl 25 mg PO Q4H PRN PRN #20 cap 10/25/20 hydrocortisone 0 g TOPICAL TID #1 applic 10/25/20 acamprosate 333 mg tablet,delayed 333 mg PO TID #90 tab 11/26/20 release silver sulfadiazine 1 % topical 1 applic TOPICAL DAILY #25 g 01/06/21 cream ondansetron 4 mg disintegrating 4 mg PO Q8H PRN #20 tab 01/30/21 tablet cephalexin 500 mg PO BID 7 Days #13 cap 03/06/21 Allergies Allergy/AdvReac Type Severity Reaction Status Date / Time Penicillins Allergy Mild Rash Verified 03/06/21 10:35 ramipril Allergy Unknown ITCHING Verified 03/06/21 10:35 meperidine [From Demerol] AdvReac Severe Nausea Verified 03/06/21 10:35 bupropion AdvReac Mild GI upset Verified 03/06/21 10:35 AMBER Inhibitors AdvReac Unknown COUGH Verified 03/06/21 10:35 alendronate sodium AdvReac Unknown GI Distress Verified 07/09/21 10:35 clarithromycin AdvReac Unknown intolerant Verified 03/06/21 10:35 paroxetine AdvReac Unknown Diarrhea Verified 03/06/21 10:35 General Stated Complaint: GenMedical JORDAN: 2 Review of Systems <James Crenshaw MD - Last Filed: 03/07/21 09:53> Narrative: Review of systems limited secondary to altered mental status and not forthcoming Constitutional Constitutional: Denies fever(s) Psychiatric Comments: Depressed PFSH <James Crenshaw MD - Last Filed: 03/07/21 09:53> Medical History Adjustment disorder with depressed mood AMBER (acute kidney injury) Alcohol abuse Alcoholic gastritis without bleeding Alcoholic ketosis Allergic rhinitis Anemia (12/20/16) Back pain, chronic Calcific tendinitis of left shoulder CAP (community acquired pneumonia) Cataract (11/07/15) Cervical radicular pain neck pain and DJD [facility] 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) pls refrain from alcohol Chronic alcoholism she will not stop drinking unless she checks with me, so that we can help her avert withdrawal I do not think she is capable on her own--she would need placement to achieve required goal of 3 months of sobriety Chronic diarrhea Closed displaced fracture of proximal phalanx of right index finger with routine healing (06/03/17) Closed right humeral fracture Contusion of left little finger Corneal ulcer, right (~08/23/18) 08/23/18; [id number] Dehydration Depression Diarrhea Discharge planning issues DVT prophylaxis Dystrophic nail Elev transaminase/LDH due to alcohol Epigastric abdominal pain Fall as cause of accidental injury at home as place of occurrence Genital herpes simplex recurrent gential; suppressive Valtrex GERD (gastroesophageal reflux disease) GI bleed (12/20/16) Head contusion Headache History of alcohol abuse Humerus fracture (09/12/19) Right Hyperlipidemia Hypertension Incidental lung nodule, greater than or equal to 8mm 1cm, spiculated, stable for many years, recommend f/u in 6 mo Macrocytosis (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 Multiple rib fractures 03/11/19 [facility] Nausea and vomiting in adult Non-cardiac chest pain (09/21/16) [facility] [place] NEGATIVE MP Osteoarthritis Osteopenia Palliative care patient (03/21/17) Pancreatitis, alcoholic, acute Peripheral edema Pleural effusion on left 03/11/19 [facility] Presacral mass (~09/15/18) 09/15/18 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 Bladder repair. Ligation of fallopian tube Repair bladder injury, simple Family History Mother No problems noted. Father , DROWNED at age 50. No problems noted. Sister Personal history of malignant neoplasm MELANOMA Sister No problems noted. Grandfather Personal history of malignant neoplasm STOMACH Grandfather Personal history of malignant neoplasm PROSTATE Grandmother Heart disease DC Acute ill-defined cerebrovascular disease Grandmother Personal history of malignant neoplasm UTERINE Aunt , DC Heart disease DC Aunt , DC Heart disease Brother No problems noted. Social History Smoking/Tobacco Use Status: Former Tobacco Use Quit Date: 08/05/20 Smoking risk assessment performed?: Yes Alcohol Intake: current Alcohol Intake frequency: 3 or more drinks per day Alcohol type: hard liquor Drug use: Never Substance use type: does not use Current gender identity: female Do you feel safe at home: Yes Do you feel safe in your relationship?: Yes Additional Social history: Pt has been binge drinking since 4am Exam <James Crenshaw MD - Last Filed: 03/07/21 09:53> Const General: no acute distress HENMT Head: normocephalic and atraumatic Mouth: moist mucous membranes Eyes Conjunctivae: normal conjunctivae Sclera: normal sclerae Neck Neck: trachea midline Resp Auscultation: clear to auscultation bilaterally, no rales, no rhonchi and no wheezes Cardio Rate: regular rate and not tachycardic Rhythm: regular rhythm GI Palpation: soft, not firm, no guarding, no masses, not rigid and nontender Skin General skin exam: no rashes or lesions noted Neuro General: patient alert, patient awake, oriented Patient Orientation: Person and Place and tone normal Extrem General: no edema Psych Appearance: grossly normal Course <James Crenshaw MD - Last Filed: 03/07/21 09:53> Vital Signs Vital signs: Vital Signs Temperature 36.6 C 03/06/21 10:29 Pulse 97 H 03/06/21 10:29 Respiratory Rate 20 03/06/21 10:29 Blood Pressure 166/95 H 03/06/21 10:29 Pulse Oximetry 91 L 03/06/21 10:29 Temperature 36.6 C 03/06/21 10:29 Temperature Source Skin 03/06/21 10:29 Pulse 95 H 03/06/21 14:15 Pulse 96 H 03/06/21 14:15 Respiratory Rate 12 03/06/21 14:15 Respiratory Effort Non-Labored 03/06/21 10:46 Respiratory Depth Normal 03/06/21 10:46 Respiratory Pattern Normal 03/06/21 10:46 Blood Pressure 118/69 03/06/21 14:15 Blood Pressure Mean 82 03/06/21 14:15 Blood Pressure Position Sitting 03/06/21 10:29 Pulse Oximetry 94 03/06/21 11:10 Oxygen Delivery Method Room Air 03/06/21 10:29 Oxygen Flow Rate 0 03/06/21 10:29 Pain Level 1 03/06/21 10:29 Sign Out <James Crenshaw MD - Last Filed: 03/07/21 09:53> Sign Out Data: Sign Out Comment: Follow-up labs, reassess patient and examined foot, consider foot x-ray as requested by home caregiver, reassess depression, determine disposition. Last updated by James Crenshaw MD at 03/06/21 15:57
[2021-03-06 15:18] LABS: Abs Immature Grans 0.02 10^3/uL (0.0-0.06); Absolute Basophil Count 0.02 10^3/uL (0.0-0.2); Absolute Lymphocyte Count 1.05 10^3/uL (1.2-3.4); Absolute Monocyte Count 0.22 10^3/uL (0.1-0.8); Absolute Neutrophil Count 0.79 10^3/uL (1.2-6.7); HCT 32.7 % (36.0-46.0); HGB 10.7 g/dL (11.2-15.7); MCH 34.3 pg (27.0-33.0); MCHC 32.7 % (32.0-36.0); MCV 104.8 fL (80-95); MPV 8.8 fL (8.0-11.0); Monocytes % 10.5; Neutrophils % 37.5; Nucleated RBC 0 %; Platelet Count 160 10^3/uL (130-400); RBC 3.12 10^6/uL (3.93-5.22); RDW 15.2 % (11.7-14.6); RDW-SD 58.6 fL
[2021-03-06] MEDS: Lactated Ringers 500 ML IV (15:30)
[2021-03-06 15:32] LABS: ALT 56 U/L (14-59); AST 103 U/L (15-37); Albumin 3.1 g/dL (3.4-5.0); Alkaline Phosphatase 127 U/L (46-116); Anion Gap 12.6 mmol/L (3-11); BUN 10 mg/dL (7-18); Bilirubin, Total 0.7 mg/dL (0.2-1.0); CO2 25.4 mmol/L (21.0-32.0); CREATININE 0.7 mg/dL (0.55-1.02); Chloride 107 mmol/L (98-107); ETHANOL BLOOD 240.9 mg/dL (<3); Glucose 97 mg/dL (74-106); Magnesium 1.6 mg/dL (1.8-2.4); Potassium 3.8 mmol/L (3.5-5.1); Sodium 145 mmol/L (136-145); Total Protein 6.3 g/dL (6.4-8.2)
--- NOTE | 2021-03-06 15:45 | DI.RAD_ITS ---
Exam(s) XR FOOT RT COMPLETE EXAM: XR FOOT RT COMPLETE CLINICAL HISTORY: trauma, distal right foot pain. TECHNIQUE: 2D digital imaging was performed. COMPARISON: CR LEFT FOOT COMPLETE from 05/05/2017 FINDINGS: BONES: No acute fracture is present. There are 2 tiny densities adjacent to the DIP joints of the 2n d and 3rd toes which may be chronic. Please correlate with the patient's site of pain. No bony dest ructive lesion is seen. JOINTS: No dislocation present. SOFT TISSUE: Normal. IMPRESSION: No definite acute fracture or dislocation. DATA REPOSITORY: RADIATION DOSE DELIVERED:
[2021-03-06] MEDS: MAGNESIUM SULFATE 8.12 MEQ, MULTIVITAMIN 10 ML, THIAMINE 100 MG, FOLIC ACID 1 MG in Nor... 168.867 MG IV (16:10)
[2021-03-06 16:20] LABS: Diff Comment Diff Reviewed; Macrocytosis 2+
--- NOTE | 2021-03-06 17:09 | DI.VRAD_ITS ---
PROCEDURE INFORMATION: Exam: XR Right Foot Exam date and time: 03/06/2021 3:59 PM Age: 75 years old Clinical indication: Patient HX: Right foot pain TECHNIQUE: Imaging protocol: XR Right foot. Views: 3 or more views. COMPARISON: CR RIGHT FOOT COMPLETE 02/17/2016 3:57 PM FINDINGS: Bones/joints: Normal. Soft tissues: Normal. IMPRESSION: No acute findings. Dictated and Authenticated by: Emmett Tatum MD. Ordering:TETO Roberson MD
[2021-03-06 18:13] LABS: *AMPHETAMINES SCREEN URINE Negative (Negative); *BARBITURATES SCREEN URINE Negative (Negative); *BENZODIAZEPINES SCREEN URINE Negative (Negative); Cannabinoids THC Negative (Negative); Cocaine Screen,Urine Negative (Negative); METHADONE URINE SCREEN Negative (Negative); OPIATES URINE SCREEN Negative (Negative); Tricyclic Antidepressants Negative (Negative)
--- NOTE | 2021-03-06 18:27 | NUR.NOTE ---
MENTAL HEALTH I AT BEDSIDE TALKING WITH PATIENT. NO S/SXS OF DISTRESS NOTED AT THIS TIME.:
--- NOTE | 2021-03-06 20:46 | PDOC.MHCN ---
Date of service: 03/06/21 Time of Service: 18:10
--- NOTE | 2021-03-06 20:52 | NUR.NOTE ---
PORTAL ARCHITECT IN AT BEDSIDE:
[2021-03-06 21:01] LABS: Bilirubin Negative (Negative); Blood Small (Negative); Clarity Clear (Clear); Glucose Negative (Negative); Ketones Negative (Negative); Leukocyte Esterase Trace (Negative); Nitrite Positive (Negative)
[2021-03-06 21:22] LABS: Bacteria Many HPF (Negative); C & S Indicated? No/Sq. Contamination; Casts Negative LPF (Negative); Crystals Negative HPF (Negative); Epithelial Cells Many HPF (Negative); Mucus Negative (Negative); Other Cells Negative (Negative); RBC 0-2 HPF (0-2)
[2021-03-06] MEDS: Cephalexin 500 MG CAP PO (21:44)
[2021-03-06] MEDS: LORazepam 1 MG TAB PO (21:49)
[2021-03-06] MEDS: Metoprolol 50 MG TAB PO (22:02)
[2021-03-06] MEDS: Ondansetron 4 MG/2 ML VIAL IVP (22:07)
--- NOTE | 2021-03-30 09:57 | CMACTNOTE_ITS ---
- If Service Date Differs Date of service: 03/30/21 Time of Service: 09:57 Care Management Activity Note CAPO was contacted by the healthcare or medical at [facility] and asked to call the [facility] to arrange for a acid recovery operator to outreach to Leticia. CAPO speaks with Sabina at the [facility] and learns that Shayna has already spoken with Leticia a couple of times but then Leticia stopped answering the phone. Sabina will have Oumou, today's on-call acid recovery operator, outreach to Leticia by telephone to again offer support and resources. This is relayed to the healthcare or medical at [facility].
--- NOTE | 2021-03-30 09:57 | PDOC.ERCMACT ---
- If Service Date Differs Date of service: 03/30/21 Time of Service: 09:57 Care Management Activity Note CAPO was contacted by the career services director at [facility] and asked to call the [facility] to arrange for a agile scrum coach to outreach to Leticia. CAPO speaks with Sabina at the [facility] and learns that Shayna has already spoken with Leticia a couple of times but then Leticia stopped answering the phone. Sabina will have Oumou, today's on-call agile scrum coach, outreach to Leticia by telephone to again offer support and resources. This is relayed to the career services director at [facility].
== END 2021-03-06 23:50 | disposition home or self-care (01) ==
PROVIDERS: Student in an Organized Health Care Education/Training Program; Emergency Provider Student in an Organized Health Care Education/Training Program; PCP Family Medicine
DX: N39.0 Urinary tract infection, site not specified (principal); F10.120 Alcohol abuse with intoxication, uncomplicated; Y90.8 Blood alcohol level of 240 mg/100 ml or more; D72.819 Decreased white blood cell count, unspecified; D64.9 Anemia, unspecified; F32.9 Major depressive disorder, single episode, unspecified; M25.571 Pain in right ankle and joints of right foot
CPT/HCPCS: 36415; 80053; 80307; 96361; 96365; 96366; 96375; 99284; 73630; 80320; 81003; 81015; 83735; 85025; 99285; J2405

== ENCOUNTER 2021-04-14 09:03 | Emergency (ER) | payer OTHER, SELFPAY ==
[2021-04-14] VITALS (12 sets, daily range): BP systolic 164–189; BP diastolic 73–111; PULSE 97–121; RESP 20; TEMP 36.2–36.5; O2SAT 97–98
--- NOTE | 2021-04-14 09:20 | W.ED.GENAD ---
Discharge Plan Disposition Patient Disposition: HOME Condition: Stable Discharge Details Clinical Impression: Alcohol intoxication, Dehydration Primary Care Provider: Lavelle Galindo ED Provider: Blaze Mccarthy [place] Meds and New Rx's Prescriptions: Continued Xiidra 5 % dropperette 1 drp ophthalmic (eye) BID RF: 0 acamprosate 333 mg tablet,delayed release (DR/EC) 333 mg PO TID Qty: 90 RF: 2 magnesium oxide 400 mg magnesium capsule 400 mg PO BID Qty: 180 RF: 3 celecoxib [Celebrex] 100 mg capsule 100 mg PO BID Qty: 60 RF: 2 cholestyramine (with sugar) 4 gram powder 1 pwd PO BID Qty: 378 RF: 0 Ensure Active High Protein Liquid 414 ml PO DAILY Qty: 99273 RF: 11 dicyclomine 10 mg capsule 10 mg PO QID PRN (Reason: belly pain) Qty: 40 RF: 0 ipratropium-albuterol 0.5 mg-3 mg(2.5 mg base)/3 mL solution for nebulization 3 ml IH QID PRN (Reason: shortness of breath) Qty: 90 RF: 3 fluticasone propionate 50 mcg/actuation spray,suspension 1 spray NS daily prn Qty: 9.9 RF: 2 gabapentin 300 mg capsule 300 mg PO BID Qty: 90 RF: 5 metoprolol tartrate 50 mg tablet 50 mg PO BID Qty: 180 RF: 3 multivitamin [Multiple Vitamins] Tablet 1 tab PO DAILY Qty: 90 RF: 3 pantoprazole 40 mg tablet,delayed release (DR/EC) 40 mg PO DAILY Qty: 90 RF: 3 potassium chloride [Klor-Con M10] 10 mEq tablet,ER particles/crystals 10 meq PO DAILY Qty: 90 RF: 3 venlafaxine 150 mg capsule,extended release 24hr 150 mg PO DAILY Qty: 30 RF: 11 thiamine HCl (vitamin B1) 100 mg tablet 100 mg PO DAILY Qty: 90 RF: 3 folic acid 1 mg tablet 1 mg PO DAILY Qty: 90 RF: 3 doxepin 3 mg tablet 3 mg PO BID PRN (Reason: itch) Qty: 30 RF: 0 hydroxyzine HCl 25 mg tablet 25 mg PO TID PRN (Reason: itching) Qty: 30 RF: 2 ondansetron 4 mg tablet,disintegrating 4 mg PO Q8H PRN (Reason: nausea and vomiting) Qty: 20 RF: 0 fluoxetine 10 mg tablet 10 mg PO DAILY Qty: 30 RF: 1 sucralfate 1 gram tablet 1 g PO AC & HS Qty: 120 RF: 11 Refresh Plus 0.5 % Dropperette 1 drp OU Q4H WHILE AWAKE Qty: 30 RF: 0 diphenhydramine HCl 25 mg Capsule 25 mg PO Q4H PRN PRNQty: 20 RF: 0 Restasis 0.05 % Dropperette 0.4 ml OU BID Qty: 10 RF: 0 hydrocortisone 1 % Cream 0 g topical TID Qty: 1 RF: 2 Eucerin Cream 0 g topical TID Qty: 1 RF: 1 Bio-K plus 50 billion cell Capsule,Delayed Release(Dr/Ec) 1 cap PO DAILY Qty: 60 RF: 0 sennosides [Senokot] 8.6 mg tablet 8.6 mg PO PRN PRNRF: 0 naltrexone 50 mg tablet 50 mg PO DAILY RF: 0 amlodipine 5 mg tablet 5 mg PO DAILY RF: 0 Discharge Instructions Instructions: Dehydration (ED) Additional Instructions: try to stop drinking alcohol follow up with your primary care provider within 1 week if you feel more ill, have fevers or persistent vomit return to the emergency department Medical Decision Making 75 yo female with hx of alcohol abuse, ptsd, htn, hld, who comes in with ems from home with complaints of all over body aching, not eating or drinking since last Tuesday and general malaise. She has a mild headache, no chest pain, fevers, dyspnea, vomit or abdomen pain. She states her joints feel achy. Denies any recent falls. She appears unkempt, and has flat affect on exam. She has no abdomen tenderness, no meningismus, states her headache is mild and has slowly been worsening. I suspect part of her symptoms are likely due to dehydration and not eating or drinking and also could be due to her underlying depression.Her headache seems like a tension headache and do not feel workup for itrancranial hemorrhage or dental insurance coordinator infection indicated at this time. Will give IVF and check for electrolyte abnormalities as well as rhabdo and reassess. pt remains stable, sleeping on reassessment but awakens easily. labs show elevated anion gap likely from alcoholic ketosis and dehydration, alcohol over 170, chronically elevated lft's. Will recheck bmp after fluids, pain has resolved now still has anion gap acidosis, had nausea likely from alcohol induced gastritis, she has been tolerating po despite her nausea. Given continued anion gap acidosis which is still most likely from dehydration and alcoholic ketosis offered admission. She declines and requests discharge. She is caox4 and is clinically sober and has capacity to make her own decisions. She states she is trying to limit how much she is in the hospital and is limiting how much medical interventions she has done. She understands she needs to try and stop drinking alcohol, declines recovery room nurse at this time. I advised she follow up with her pcp and return precautions given Differential Diagnosis Differential Diagnosis: fibromyalgia, dehydration, electrolyte abnormality, uti, rhabdo Medical Records Medical records reviewed: Yes I reviewed the patient's medical records. Lab Data Lab results reviewed: Yes I reviewed the patient's lab results. HPI General Mode of arrival: EMS. Date/Time Provider Initiated Documentation: 04/14/21 09:12. Limitations to Documentation: no limitations. Information obtained by: patient. History of Present Illness 75 year old F presents to the emergency department with the chief complaint of whole body hurts, described as moderate, Quality is described as aching, Patient reports no radiation. Patient started experiencing this day(s) (1) and it has been constant. No relieving factors improve symptom(s), No exacerbating factors reported . Patient notes other (lack of appetite). Patient did receive the following treatments prior to arrival, none Related Data Home Medications Medication Instructions Recorded Confirmed Refresh Plus 1 drp OU Q4H WHILE AWAKE #30 each 06/20/19 04/14/21 magnesium oxide 400 mg PO BID #180 cap 07/17/19 04/14/21 food supplemt, lactose-reduced 414 ml PO DAILY #06325 ml 08/24/19 04/14/21 dicyclomine 10 mg capsule 10 mg PO QID PRN #40 cap 11/06/19 04/14/21 ipratropium 0.5 mg-albuterol 3 mg 3 ml IH QID PRN #90 ml 01/04/20 04/14/21 (2.5 mg base)/3 mL nebulization soln fluticasone propionate 50 1 spray NS daily prn #9.9 ml 03/25/20 04/14/21 mcg/actuation nasal spray,suspension Bio-K plus 1 cap PO DAILY #60 cap 05/12/20 04/14/21 celecoxib 100 mg capsule 100 mg PO BID #60 cap 06/13/20 04/14/21 lifitegrast 5 % eye drops in a 1 drp OPHTHALMIC (EYE) BID 08/05/20 04/14/21 dropperette sennosides [Senokot] 8.6 mg PO PRN PRN 08/08/20 04/14/21 cholestyramine (with sugar) 4 gram 1 pwd PO BID #378 g 08/27/20 04/14/21 oral powder folic acid 1 mg tablet 1 mg PO DAILY #90 tab 09/05/20 04/14/21 gabapentin 300 mg capsule 300 mg PO BID #90 cap 09/05/20 04/14/21 metoprolol tartrate 50 mg tablet 50 mg PO BID #180 tab 09/05/20 04/14/21 multivitamin 1 tab PO DAILY #90 tab 09/05/20 04/14/21 pantoprazole 40 mg tablet,delayed 40 mg PO DAILY #90 tab 09/05/20 04/14/21 release potassium chloride 10 mEq 10 meq PO DAILY #90 tab 09/05/20 04/14/21 tablet,extended release(part/cryst) thiamine HCl (vitamin B1) 100 mg 100 mg PO DAILY #90 tab 09/05/20 04/14/21 tablet venlafaxine 150 mg 150 mg PO DAILY #30 cap 09/05/20 04/14/21 capsule,extended release 24 hr doxepin 3 mg tablet 3 mg PO BID PRN #30 tab 10/15/20 04/14/21 hydroxyzine HCl 25 mg tablet 25 mg PO TID PRN #30 tab 10/17/20 04/14/21 Eucerin 0 g TOPICAL TID #1 unit 10/25/20 04/14/21 Restasis 0.4 ml OU BID #10 ea 10/25/20 04/14/21 diphenhydramine HCl 25 mg PO Q4H PRN PRN #20 cap 10/25/20 04/14/21 hydrocortisone 0 g TOPICAL TID #1 applic 10/25/20 04/14/21 amlodipine 5 mg PO DAILY 11/12/20 04/14/21 naltrexone 50 mg PO DAILY 11/12/20 04/14/21 acamprosate 333 mg tablet,delayed 333 mg PO TID #90 tab 11/26/20 04/14/21 release fluoxetine 10 mg tablet 10 mg PO DAILY #30 tab 03/27/21 04/14/21 ondansetron 4 mg disintegrating 4 mg PO Q8H PRN #20 tab 03/27/21 04/14/21 tablet sucralfate 1 gram tablet 1 g PO AC & HS #120 tab 04/04/21 04/14/21 Previous Rx's Medication Instructions Recorded Refresh Plus 1 drp OU Q4H WHILE AWAKE #30 each 06/20/19 magnesium oxide 400 mg PO BID #180 cap 07/17/19 food supplemt, lactose-reduced 414 ml PO DAILY #58210 ml 08/24/19 dicyclomine 10 mg capsule 10 mg PO QID PRN #40 cap 11/06/19 ipratropium 0.5 mg-albuterol 3 mg 3 ml IH QID PRN #90 ml 01/04/20 (2.5 mg base)/3 mL nebulization soln fluticasone propionate 50 1 spray NS daily prn #9.9 ml 03/25/20 mcg/actuation nasal spray,suspension Bio-K plus 1 cap PO DAILY #60 cap 05/12/20 celecoxib 100 mg capsule 100 mg PO BID #60 cap 06/13/20 cholestyramine (with sugar) 4 gram 1 pwd PO BID #378 g 08/27/20 oral powder folic acid 1 mg tablet 1 mg PO DAILY #90 tab 09/05/20 gabapentin 300 mg capsule 300 mg PO BID #90 cap 09/05/20 metoprolol tartrate 50 mg tablet 50 mg PO BID #180 tab 09/05/20 multivitamin 1 tab PO DAILY #90 tab 09/05/20 pantoprazole 40 mg tablet,delayed 40 mg PO DAILY #90 tab 09/05/20 release potassium chloride 10 mEq 10 meq PO DAILY #90 tab 09/05/20 tablet,extended release(part/cryst) thiamine HCl (vitamin B1) 100 mg 100 mg PO DAILY #90 tab 09/05/20 tablet venlafaxine 150 mg 150 mg PO DAILY #30 cap 09/05/20 capsule,extended release 24 hr doxepin 3 mg tablet 3 mg PO BID PRN #30 tab 10/15/20 hydroxyzine HCl 25 mg tablet 25 mg PO TID PRN #30 tab 10/17/20 Eucerin 0 g TOPICAL TID #1 unit 10/25/20 Restasis 0.4 ml OU BID #10 ea 10/25/20 diphenhydramine HCl 25 mg PO Q4H PRN PRN #20 cap 10/25/20 hydrocortisone 0 g TOPICAL TID #1 applic 10/25/20 acamprosate 333 mg tablet,delayed 333 mg PO TID #90 tab 11/26/20 release fluoxetine 10 mg tablet 10 mg PO DAILY #30 tab 03/27/21 ondansetron 4 mg disintegrating 4 mg PO Q8H PRN #20 tab 03/27/21 tablet sucralfate 1 gram tablet 1 g PO AC & HS #120 tab 04/04/21 Allergies Allergy/AdvReac Type Severity Reaction Status Date / Time Penicillins Allergy Mild Rash Verified 04/14/21 09:13 ramipril Allergy Unknown ITCHING Verified 04/14/21 09:13 meperidine [From Demerol] AdvReac Severe Nausea Verified 04/14/21 09:13 bupropion AdvReac Mild GI upset Verified 04/14/21 09:13 AMBER Inhibitors AdvReac Unknown COUGH Verified 04/14/21 09:13 alendronate sodium AdvReac Unknown GI Distress Verified 04/14/21 09:13 clarithromycin AdvReac Unknown intolerant Verified 04/14/21 09:13 paroxetine AdvReac Unknown Diarrhea Verified 04/14/21 09:13 General Stated Complaint: GenMedical JORDAN: 3 Review of Systems All systems reviewed & are unremarkable except as noted in HPI and below Constitutional Constitutional: Denies chills and Denies fever(s) Cardiovascular Cardiovascular: Denies chest pain and Denies dyspnea Respiratory Respiratory: Denies cough and Denies dyspnea Gastrointestinal Gastrointestinal: Denies abdominal pain, Denies nausea and Denies vomiting Musculoskeletal Musculoskeletal: Denies joint swelling REPLACED BY [facility] Medical History (Updated 04/14/21 @ 12:43 by Blaze Mccarthy MD) Acute alcoholism Acute UTI Adjustment disorder with depressed mood AMBER (acute kidney injury) Alcohol abuse Alcohol intoxication Alcohol intoxication Alcoholic gastritis without bleeding Alcoholic ketosis Allergic rhinitis Anemia Back pain, chronic Blunt head trauma Blunt trauma of multiple sites of trunk Calcific tendinitis of left shoulder CAP (community acquired pneumonia) Cataract (11/07/15) Cervical radicular pain neck pain and DJD [facility] clinic Cervical strain 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) pls refrain from alcohol Chronic alcoholism she will not stop drinking unless she checks with me, so that we can help her avert withdrawal I do not think she is capable on her own--she would need placement to achieve required goal of 3 months of sobriety Chronic diarrhea Closed displaced fracture of proximal phalanx of right index finger with routine healing (06/03/17) Closed right humeral fracture Contusion of left little finger Corneal ulcer, right (~08/23/18) 08/23/18; UV-kb Dehydration Depression Diarrhea Discharge planning issues DVT prophylaxis Dystrophic nail Elev transaminase/LDH due to alcohol Epigastric abdominal pain Facial fracture due to fall Facial laceration Fall as cause of accidental injury at home as place of occurrence Fall at home Fracture of humerus, left, closed Genital herpes simplex recurrent gential; suppressive Valtrex GERD (gastroesophageal reflux disease) GI bleed (12/20/16) Head contusion Headache History of alcohol abuse Humerus fracture (09/12/19) Right Hyperlipidemia Hypertension Hypokalemia Hypokalemia Hypokalemia Hypomagnesemia Incidental lung nodule, greater than or equal to 8mm 1cm, spiculated, stable for many years, recommend f/u in 6 mo Intractable vomiting Leukopenia Macrocytosis (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 Multiple contusions Multiple fractures of ribs Multiple rib fractures 03/11/19 [facility] Nausea and vomiting in adult Non-cardiac chest pain (09/21/16) [facility] [place] 09/21/16 NEGATIVE MP Osteoarthritis Osteopenia Palliative care patient (03/21/17) Pancreatitis, alcoholic, acute Peripheral edema Photophobia of right eye Pleural effusion on left 03/11/19 [facility] Pneumonia Presacral mass (~09/15/18) 09/15/18 [facility] Rash Rib pain on right side Right rib fracture Sacral mass Sciatica right, epidural injuections PainCare Suicidal ideation Tendinitis of left rotator cuff Tubular adenoma of colon (01/28/17) Urinary incontinence 01/24/13 urethral suspension and sling at [facility] [place] (bladder suspension 1991) UTI (urinary tract infection) UTI (urinary tract infection) 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 Bladder repair. Ligation of fallopian tube Repair bladder injury, simple Family History Mother No problems noted. Father , DROWNED at age 50. No problems noted. Sister Personal history of malignant neoplasm MELANOMA Sister No problems noted. Grandfather Personal history of malignant neoplasm STOMACH Grandfather Personal history of malignant neoplasm PROSTATE Grandmother Heart disease CT Acute ill-defined cerebrovascular disease Grandmother Personal history of malignant neoplasm UTERINE Aunt , CT Heart disease CT Aunt , CT Heart disease Brother No problems noted. Social History Smoking/Tobacco Use Status: Former Tobacco Use Quit Date: 08/05/20 Smoking risk assessment performed?: Yes Alcohol Intake: current Alcohol Intake frequency: 3 or more drinks per day Alcohol type: hard liquor Drug use: Never Substance use type: does not use Current gender identity: female Do you feel safe at home: Yes Do you feel safe in your relationship?: Yes Additional Social history: Pt has been binge drinking since 4am Exam Const General: no acute distress Orientation: alert HENMT Head: normal to inspection Ears: external ears normal General nose exam: external nose normal Mouth: moist mucous membranes Eyes General: appearance normal, both eyes and all related structures Neck Neck: normal visual inspection Chest Chest: normal inspection of the chest Resp Effort & Inspection: normal respiratory effort and able to speak in complete sentences Cardio Rate: regular rate GI Palpation: soft, not firm, no guarding and nontender Skin General skin exam: no rashes or lesions noted Neuro General: patient alert and patient oriented x3 Extrem General: normal to inspection Course Vital Signs Vital signs: Vital Signs Temperature 36.2 C L 04/14/21 09:08 Pulse 108 H 04/14/21 09:08 Respiratory Rate 20 04/14/21 09:08 Blood Pressure 188/92 H 04/14/21 09:08 Pulse Oximetry 98 04/14/21 09:08 Temperature 36.2 C L 04/14/21 09:08 Temperature Source Temporal Artery Scan 04/14/21 09:08 Pulse 108 H 04/14/21 09:08 Respiratory Rate 20 04/14/21 09:08 Blood Pressure 188/92 H 04/14/21 09:08 Blood Pressure Position Supine 04/14/21 09:08 Pulse Oximetry 98 04/14/21 09:08 Oxygen Delivery Method Room Air 04/14/21 09:08 Oxygen Flow Rate 0 04/14/21 09:08 Pain Level 8 04/14/21 09:08
[2021-04-14 09:38] LABS: Abs Immature Grans 0.02 10^3/uL (0.0-0.06); Absolute Basophil Count 0.03 10^3/uL (0.0-0.2); Absolute Lymphocyte Count 0.78 10^3/uL (1.2-3.4); Absolute Monocyte Count 0.26 10^3/uL (0.1-0.8); Absolute Neutrophil Count 1.56 10^3/uL (1.2-6.7); Basophils % 1.1; HCT 39.1 % (36.0-46.0); HGB 12.4 g/dL (11.2-15.7); Immature Grans % 0.8; Lymphocytes % 29.4; MCH 33.9 pg (27.0-33.0); MCHC 31.7 % (32.0-36.0); MCV 106.8 fL (80-95); MPV 8.8 fL (8.0-11.0); Monocytes % 9.8; Neutrophils % 58.9; Nucleated RBC 0 %; Platelet Count 103 10^3/uL (130-400); RBC 3.66 10^6/uL (3.93-5.22); RDW-SD 54.7 fL; WBC 2.65 10^3/uL (4.4-10.8)
[2021-04-14] MEDS: Normal Saline 1,000 ML 1000 ML IV (09:39)
[2021-04-14 10:03] LABS: ALT 93 U/L (14-59); AST 189 U/L (15-37); Alkaline Phosphatase 154 U/L (46-116); Anion Gap 24.9 mmol/L (3-11); BUN 14 mg/dL (7-18); Bilirubin, Total 2.3 mg/dL (0.2-1.0); CO2 19.1 mmol/L (21.0-32.0); CREATININE 0.8 mg/dL (0.55-1.02); Calcium 9.9 mg/dL (8.5-10.1); Chloride 100 mmol/L (98-107); Creatine Kinase 19 U/L (26-192); ETHANOL BLOOD 174.5 mg/dL (<3); Glucose 88 mg/dL (74-106); Magnesium 1.6 mg/dL (1.8-2.4); Potassium 3.9 mmol/L (3.5-5.1); Sodium 144 mmol/L (136-145); TSH (W/Ref FT4) 0.85 uIU/mL (0.36-3.74); Total Protein 7.6 g/dL (6.4-8.2)
[2021-04-14] MEDS: Ondansetron O.D.T. 4 MG TABEF PO (12:01)
[2021-04-14 12:29] LABS: Anion Gap 25.8 mmol/L (3-11); BUN 13 mg/dL (7-18); CO2 15.2 mmol/L (21.0-32.0); CREATININE 0.8 mg/dL (0.55-1.02); Calcium 9.3 mg/dL (8.5-10.1); Chloride 103 mmol/L (98-107); Glucose 93 mg/dL (74-106); Potassium 3.8 mmol/L (3.5-5.1); Sodium 144 mmol/L (136-145)
== END 2021-04-14 13:18 | disposition home or self-care (01) ==
PROVIDERS: Emergency Provider Emergency Medicine; PCP Family Medicine
DX: F10.129 Alcohol abuse with intoxication, unspecified (principal); E86.0 Dehydration; E87.2 Acidosis; R53.81 Other malaise
CPT/HCPCS: 36415; 80048; 80053; 82550; 96360; 96361; 99284; 80320; 81003; 83735; 84443; 85025

== ENCOUNTER 2021-04-15 06:20 | Inpatient (IN) | payer OTHER, SELFPAY ==
[2021-04-15] VITALS (27 sets, daily range): BP systolic 149–198; BP diastolic 47–122; PULSE 90–137; RESP 18–34; TEMP 36.6–37.2; O2SAT 96–99
--- NOTE | 2021-04-15 | DI.US_ITS ---
Exam(s) US RENAL EXAM: US RENAL CLINICAL HISTORY: probable hemorrhagic cysts in the right kidney TECHNIQUE: Ultrasound of both kidneys performed using standard protocol. COMPARISON: US US OR ANESTHESIA from 04/14/[address] ABDOMEN PELVIS WO from 04/15/2021 FINDINGS: RIGHT KIDNEY: Measures 10.4 cm in length. Two cysts evident. Upper pole cyst measures 2.8 x 2.2 cm. Midpole level c yst measures 2.5 x 2.3 cm. No solid lesions evident. No intrarenal calculi nor hydronephrosis. LEFT KIDNEY: Measures 9.1 cm in length. Single small cyst measuring 1.2 x 1.1 cm, approximately midpole level. No rmal cortical thickness and corticomedullary differentiaion. No solids masses. No intrarenal calculi nor hydonephrosis. IMPRESSION: 1. Renal cysts. No obvious solid renal masses. No calculi nor hydronephrosis. DATA REPOSITORY:
--- NOTE | 2021-04-15 06:15 | DI.CT_ITS ---
Exam(s) CT ABDOMEN PELVIS WO EXAM: CT ABDOMEN PELVIS WO CLINICAL HISTORY: vomiting, etoh, distended abd. TECHNIQUE: Imaging Protocol: Axial computed tomography images with coronal and sagittal reformatted images were created and reviewed CONTRAST MATERIAL: Intravenous: none Oral: None COMPARISON: CT CT CHEST/ABD/PEL WO from 02/18/[address] THORACIC LUMBAR SPINE REC from 02/18/2021 FINDINGS: VISUALIZED LUNG BASES: Small area of infiltrate noted in the lingular segment of the left lung. No p leural effusions.. ABDOMEN: There is no ascites. LIVER: Liver is profoundly hypodense implying severe steatosis. However, there are no discrete focal hepatic lesions. GALLBLADDER/BILIARY: No obvious gallbladder pathology. CBD is not dilated. PANCREAS: Very subtle streaking noted around the pancreas. Possible pancreatitis. No obvious pancre atic masses nor dilatation of the pancreatic duct. SPLEEN: Spleen is not enlarged. No obvious intrasplenic lesions. ADRENALS: There are no significant adrenal masses. KIDNEYS:Left kidney no significant focal findings. Nodular densities in the upper pole the right kid agustina are noted. There is a 3.2 x 3.2 cm cyst in the anterior cortex of the right kidney and an exophy tic 2.3 x 2.4 cm cyst off the posterior cortex. Superiorly there is probable hemorrhagic cyst in the right kidney. No calculi nor hydronephrosis.. ABDOMINAL AORTA: Abdominal aorta is not enlarged. LYMPH NODES: There is no retroperitoneal nor paraaortic adenopathy. ABDOMINAL WALL: No evidence of significant anterior abdominal wall hernia. GI: There is no evidence of bowel obstruction, free air, nor abscess. PELVIS: LYMPH NODES: There is no intrapelvic nor inguinal adenopathy. GI: No evidence of appendicitis.No evidence of sigmoid diverticulitis. URINARY BLADDER: No calculi nor obvious masses evident REPRODUCTIVE: Uterus and adnexal regions appear age-appropriate. However, there is a presacral mass measuring 5 cm AP by 3 cm wide by 4.3 cm craniocaudal, slightly ri ght of center and deviating the rectum towards the left side.. This mass was evident on the CT scan of 02/18/2021,, exhibiting minimal if any significant increased in size from 02/18/2021.. No adjacen t bone destruction. OSSEOUS: Multiple healed rib bilateral rib fractures are again noted. No obvious acute fractures lois dent. The no lytic osseous lesions identified. IMPRESSION: 1. Compared to the prior CT scan of 02/18/2021 there is again noted a lobulated noncalcified mass in the presacral region measuring approximately 5 x 3 x 4.3 cm, similar in size to CT scan of 02/18/2021 and not associated with adjacent bone destruction of the sacrum. No parapelvic masses nor adenopath y nor ascites. 2. Multiple cysts and probable hemorrhagic cysts in the right kidney, somewhat difficult to assess wi thout IV contrast. Should be further studied with ultrasound. 3. Multiple bilateral healed rib fractures again noted. No acute fractures evident. Mild infiltrate in the lingular segment of the left lung base noted. 4. Subtle streaking around the pancreas which may be exaggerated by motion artifact. Correlation an y clinical signs of pancreatitis recommended. 5. Hepatic steatosis noted. No focal hepatic lesions identified. RADIATION DOSE DELIVERED: 796.5mGy.cm Total DLP DATA REPOSITORY: All CT scans at this facility are submitted to the National Radiology Data Registry (NRDR) Dose Index Registry (DIR) with the [employer] (ACR). RADIATION OPTIMIZATION: All CT scans at this facility use at least one of these dose optimization te chniques: automated exposure control; mA and/or kV adjustment per patient size (includes targeted exa ms where dose is matched to clinical indication); or iterative reconstruction.
--- NOTE | 2021-04-15 06:15 | RT.EKG_ITS ---
APPROVED REPORT Exam: Resting ECG Reason for Exam: vomiting Patient Location: E HR:135 bpm ECG Measurements Heart Rate 135 AXIS MA 123 P 35 QRSd 85 QRS -36 QT 316 T 0 QTc 474 Conclusion Sinus tachycardia...rate> 99 Inferior infarct, old...Q >35mS, II III aVF No stemi
--- NOTE | 2021-04-15 06:22 | ED.GENADUL_ITS ---
Discharge Plan Disposition Patient Disposition: [facility] INPATIENT Condition: Stable Discharge Details Clinical Impression: Vomiting, Dehydration, Pancreatitis Primary Care Provider: Lavelle Galindo ED Provider: Blaze Mccarthy [place] Meds and New Rx's Prescriptions: No Action Xiidra 5 % dropperette 1 drp ophthalmic (eye) BID RF: 0 acamprosate 333 mg tablet,delayed release (DR/EC) 333 mg PO TID Qty: 90 RF: 2 magnesium oxide 400 mg magnesium capsule 400 mg PO BID Qty: 180 RF: 3 celecoxib [Celebrex] 100 mg capsule 100 mg PO BID Qty: 60 RF: 2 cholestyramine (with sugar) 4 gram powder 1 pwd PO BID Qty: 378 RF: 0 Ensure Active High Protein Liquid 414 ml PO DAILY Qty: 18941 RF: 11 dicyclomine 10 mg capsule 10 mg PO QID PRN (Reason: belly pain) Qty: 40 RF: 0 ipratropium-albuterol 0.5 mg-3 mg(2.5 mg base)/3 mL solution for nebulization 3 ml IH QID PRN (Reason: shortness of breath) Qty: 90 RF: 3 fluticasone propionate 50 mcg/actuation spray,suspension 1 spray NS daily prn Qty: 9.9 RF: 2 gabapentin 300 mg capsule 300 mg PO BID Qty: 90 RF: 5 metoprolol tartrate 50 mg tablet 50 mg PO BID Qty: 180 RF: 3 multivitamin [Multiple Vitamins] Tablet 1 tab PO DAILY Qty: 90 RF: 3 pantoprazole 40 mg tablet,delayed release (DR/EC) 40 mg PO DAILY Qty: 90 RF: 3 potassium chloride [Klor-Con M10] 10 mEq tablet,ER particles/crystals 10 meq PO DAILY Qty: 90 RF: 3 venlafaxine 150 mg capsule,extended release 24hr 150 mg PO DAILY Qty: 30 RF: 11 thiamine HCl (vitamin B1) 100 mg tablet 100 mg PO DAILY Qty: 90 RF: 3 folic acid 1 mg tablet 1 mg PO DAILY Qty: 90 RF: 3 doxepin 3 mg tablet 3 mg PO BID PRN (Reason: itch) Qty: 30 RF: 0 hydroxyzine HCl 25 mg tablet 25 mg PO TID PRN (Reason: itching) Qty: 30 RF: 2 ondansetron 4 mg tablet,disintegrating 4 mg PO Q8H PRN (Reason: nausea and vomiting) Qty: 20 RF: 0 fluoxetine 10 mg tablet 10 mg PO DAILY Qty: 30 RF: 1 sucralfate 1 gram tablet 1 g PO AC & HS Qty: 120 RF: 11 Refresh Plus 0.5 % Dropperette 1 drp OU Q4H WHILE AWAKE Qty: 30 RF: 0 diphenhydramine HCl 25 mg Capsule 25 mg PO Q4H PRN PRNQty: 20 RF: 0 Restasis 0.05 % Dropperette 0.4 ml OU BID Qty: 10 RF: 0 hydrocortisone 1 % Cream 0 g topical TID Qty: 1 RF: 2 Eucerin Cream 0 g topical TID Qty: 1 RF: 1 Bio-K plus 50 billion cell Capsule,Delayed Release(Dr/Ec) 1 cap PO DAILY Qty: 60 RF: 0 sennosides [Senokot] 8.6 mg tablet 8.6 mg PO PRN PRNRF: 0 naltrexone 50 mg tablet 50 mg PO DAILY RF: 0 amlodipine 5 mg tablet 5 mg PO DAILY RF: 0 Medical Decision Making <Paul Chavira DO - Last Filed: 04/15/21 07:28> This is a 75-year-old female with a past medical history of chronic alcohol intoxication, alcoholic gastritis, hypertension, high cholesterol, chronic transaminitis, who presents today for vomiting. Patient was just here about 16 hours ago, and she is dehydrated and had some mild vomiting then. She was rehydrated, but refused admission want to go home. She called EMS again and states that she has continued to vomit all throughout the night and cannot keep anything down. She has not taken her medications. She does consume alcohol regularly. Patient is otherwise a poor historian and denies any other complaints. She denies any chest pain or shortness of breath. She denies any blood. No other complaints. No other modifying factors. Exam demonstrates a disheveled appearing female, vomitus all over her mouth and chest. Abdomen mildly distended, mildly tender throughout., Appears dry. Suspect recurrent episodes of emesis secondary to alcoholic gastritis. We will gently rehydrate, get a CT scan of the abdomen to rule out obstruction, monitor closely and reassess. <Blaze Mccarthy MD - Last Filed: 04/15/21 09:06> patient's labs show continued anion gap acidosis likely from alcoholic ketosis and dehydration and lacate over 2 which is likely due to dehydration, no infectious symptoms to suggest sepsis. Lipase is over a 1000, no new findings on ct still has unchanged presacral mass. Still not able to take po, will discuss with hospitalist about admission Imaging Data Radiologic Study: Attestation: I personally reviewed and interpreted this imaging study as follows: Imaging: CT Scan Radiologist's impression: IMPRESSION: No acute findings. Enlarged, fatty liver. Stable presacral mass Lab Data Lab results reviewed: No I reviewed the patient's lab results. HPI <Paul Chavira DO - Last Filed: 04/15/21 07:28> General Date/Time Provider Initiated Documentation: 04/15/21 06:21 . HPI Narrative: This is a 75-year-old female with a past medical history of chronic alcohol intoxication, alcoholic gastritis, hypertension, high cholesterol, chronic transaminitis, who presents today for vomiting. Patient was just here about 16 hours ago, and she is dehydrated and had some mild vomiting then. She was rehydrated, but refused admission want to go home. She called EMS again and states that she has continued to vomit all throughout the night and cannot keep anything down. She has not taken her medications. She does consume alcohol regularly. Patient is otherwise a poor historian and denies any other complaints. She denies any chest pain or shortness of breath. She denies any blood. No other complaints. No other modifying factors. Related Data Home Medications Medication Instructions Recorded Confirmed Refresh Plus 1 drp OU Q4H WHILE AWAKE #30 each 06/20/19 04/15/21 magnesium oxide 400 mg PO BID #180 cap 07/17/19 04/15/21 food supplemt, lactose-reduced 414 ml PO DAILY #44659 ml 08/24/19 04/15/21 dicyclomine 10 mg capsule 10 mg PO QID PRN #40 cap 11/06/19 04/15/21 ipratropium 0.5 mg-albuterol 3 mg 3 ml IH QID PRN #90 ml 01/04/20 04/15/21 (2.5 mg base)/3 mL nebulization soln fluticasone propionate 50 1 spray NS daily prn #9.9 ml 03/25/20 04/15/21 mcg/actuation nasal spray,suspension Bio-K plus 1 cap PO DAILY #60 cap 05/12/20 04/15/21 celecoxib 100 mg capsule 100 mg PO BID #60 cap 06/13/20 04/15/21 lifitegrast 5 % eye drops in a 1 drp OPHTHALMIC (EYE) BID 08/05/20 04/15/21 dropperette sennosides [Senokot] 8.6 mg PO PRN PRN 08/08/20 04/15/21 cholestyramine (with sugar) 4 gram 1 pwd PO BID #378 g 08/27/20 04/15/21 oral powder folic acid 1 mg tablet 1 mg PO DAILY #90 tab 09/05/20 04/15/21 gabapentin 300 mg capsule 300 mg PO BID #90 cap 09/05/20 04/15/21 metoprolol tartrate 50 mg tablet 50 mg PO BID #180 tab 09/05/20 04/15/21 multivitamin 1 tab PO DAILY #90 tab 09/05/20 04/15/21 pantoprazole 40 mg tablet,delayed 40 mg PO DAILY #90 tab 09/05/20 04/15/21 release potassium chloride 10 mEq 10 meq PO DAILY #90 tab 09/05/20 04/15/21 tablet,extended release(part/cryst) thiamine HCl (vitamin B1) 100 mg 100 mg PO DAILY #90 tab 09/05/20 04/15/21 tablet venlafaxine 150 mg 150 mg PO DAILY #30 cap 09/05/20 04/15/21 capsule,extended release 24 hr doxepin 3 mg tablet 3 mg PO BID PRN #30 tab 10/15/20 04/15/21 hydroxyzine HCl 25 mg tablet 25 mg PO TID PRN #30 tab 10/17/20 04/15/21 Eucerin 0 g TOPICAL TID #1 unit 10/25/20 04/15/21 Restasis 0.4 ml OU BID #10 ea 10/25/20 04/15/21 diphenhydramine HCl 25 mg PO Q4H PRN PRN #20 cap 10/25/20 04/15/21 hydrocortisone 0 g TOPICAL TID #1 applic 10/25/20 04/15/21 amlodipine 5 mg PO DAILY 03/17/21 08/18/21 naltrexone 50 mg PO DAILY 11/12/20 04/15/21 acamprosate 333 mg tablet,delayed 333 mg PO TID #90 tab 11/26/20 04/15/21 release fluoxetine 10 mg tablet 10 mg PO DAILY #30 tab 03/27/21 04/15/21 ondansetron 4 mg disintegrating 4 mg PO Q8H PRN #20 tab 03/27/21 04/15/21 tablet sucralfate 1 gram tablet 1 g PO AC & HS #120 tab 04/04/21 04/15/21 Previous Rx's Medication Instructions Recorded Refresh Plus 1 drp OU Q4H WHILE AWAKE #30 each 06/20/19 magnesium oxide 400 mg PO BID #180 cap 07/17/19 food supplemt, lactose-reduced 414 ml PO DAILY #44266 ml 08/24/19 dicyclomine 10 mg capsule 10 mg PO QID PRN #40 cap 11/06/19 ipratropium 0.5 mg-albuterol 3 mg 3 ml IH QID PRN #90 ml 01/04/20 (2.5 mg base)/3 mL nebulization soln fluticasone propionate 50 1 spray NS daily prn #9.9 ml 03/25/20 mcg/actuation nasal spray,suspension Bio-K plus 1 cap PO DAILY #60 cap 05/12/20 celecoxib 100 mg capsule 100 mg PO BID #60 cap 06/13/20 cholestyramine (with sugar) 4 gram 1 pwd PO BID #378 g 08/27/20 oral powder folic acid 1 mg tablet 1 mg PO DAILY #90 tab 09/05/20 gabapentin 300 mg capsule 300 mg PO BID #90 cap 09/05/20 metoprolol tartrate 50 mg tablet 50 mg PO BID #180 tab 09/05/20 multivitamin 1 tab PO DAILY #90 tab 09/05/20 pantoprazole 40 mg tablet,delayed 40 mg PO DAILY #90 tab 09/05/20 release potassium chloride 10 mEq 10 meq PO DAILY #90 tab 09/05/20 tablet,extended release(part/cryst) thiamine HCl (vitamin B1) 100 mg 100 mg PO DAILY #90 tab 09/05/20 tablet venlafaxine 150 mg 150 mg PO DAILY #30 cap 09/05/20 capsule,extended release 24 hr doxepin 3 mg tablet 3 mg PO BID PRN #30 tab 10/15/20 hydroxyzine HCl 25 mg tablet 25 mg PO TID PRN #30 tab 10/17/20 Eucerin 0 g TOPICAL TID #1 unit 10/25/20 Restasis 0.4 ml OU BID #10 ea 10/25/20 diphenhydramine HCl 25 mg PO Q4H PRN PRN #20 cap 10/25/20 hydrocortisone 0 g TOPICAL TID #1 applic 10/25/20 acamprosate 333 mg tablet,delayed 333 mg PO TID #90 tab 11/26/20 release fluoxetine 10 mg tablet 10 mg PO DAILY #30 tab 03/27/21 ondansetron 4 mg disintegrating 4 mg PO Q8H PRN #20 tab 03/27/21 tablet sucralfate 1 gram tablet 1 g PO AC & HS #120 tab 04/04/21 Allergies Allergy/AdvReac Type Severity Reaction Status Date / Time Penicillins Allergy Mild Rash Verified 04/15/21 07:04 ramipril Allergy Unknown ITCHING Verified 04/15/21 07:04 meperidine [From Demerol] AdvReac Severe Nausea Verified 04/15/21 07:04 bupropion AdvReac Mild GI upset Verified 04/15/21 07:04 AMBER Inhibitors AdvReac Unknown COUGH Verified 04/15/21 07:04 alendronate sodium AdvReac Unknown GI Distress Verified 04/15/21 07:04 clarithromycin AdvReac Unknown intolerant Verified 04/15/21 07:04 paroxetine AdvReac Unknown Diarrhea Verified 04/15/21 07:04 General JORDAN: 3 Review of Systems <Paul Chavira DO - Last Filed: 04/15/21 07:28> All systems reviewed & are unremarkable except as noted in HPI and below PFSH <Paul Chavira DO - Last Filed: 04/15/21 07:28> Medical History Acute alcoholism Acute UTI Adjustment disorder with depressed mood AMBER (acute kidney injury) Alcohol abuse Alcohol intoxication Alcohol intoxication Alcoholic gastritis without bleeding Alcoholic ketosis Allergic rhinitis Anemia Back pain, chronic Blunt head trauma Blunt trauma of multiple sites of trunk Calcific tendinitis of left shoulder CAP (community acquired pneumonia) Cataract (11/07/15) Cervical radicular pain neck pain and DJD [facility] Cervical strain 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) pls refrain from alcohol Chronic alcoholism she will not stop drinking unless she checks with me, so that we can help her avert withdrawal I do not think she is capable on her own--she would need placement to achieve required goal of 3 months of sobriety Chronic diarrhea Closed displaced fracture of proximal phalanx of right index finger with routine healing (06/03/17) Closed right humeral fracture Contusion of left little finger Corneal ulcer, right (~08/23/18) 08/23/18; [facility]- Dehydration Depression Diarrhea Discharge planning issues DVT prophylaxis Dystrophic nail Elev transaminase/LDH due to alcohol Epigastric abdominal pain Facial fracture due to fall Facial laceration Fall as cause of accidental injury at home as place of occurrence Fall at home Fracture of humerus, left, closed Genital herpes simplex recurrent gential; suppressive Valtrex GERD (gastroesophageal reflux disease) GI bleed (12/20/16) Head contusion Headache History of alcohol abuse Humerus fracture (09/12/19) Right Hyperlipidemia Hypertension Hypokalemia Hypokalemia Hypokalemia Hypomagnesemia Incidental lung nodule, greater than or equal to 8mm 1cm, spiculated, stable for many years, recommend f/u in 6 mo Intractable vomiting Leukopenia Macrocytosis (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 Multiple contusions Multiple fractures of ribs Multiple rib fractures 03/11/19 [facility] Nausea and vomiting in adult Non-cardiac chest pain (09/21/16) [facility] 09/21/16 NEGATIVE MP Osteoarthritis Osteopenia Palliative care patient (03/21/17) Pancreatitis, alcoholic, acute Peripheral edema Photophobia of right eye Pleural effusion on left 03/11/19 [facility] Pneumonia Presacral mass (~09/15/18) 09/15/18 [facility] Rash Rib pain on right side Right rib fracture Sacral mass Sciatica right, epidural injuections PainCare Suicidal ideation Tendinitis of left rotator cuff Tubular adenoma of colon (01/28/17) Urinary incontinence 01/24/13 urethral suspension and sling at [facility] (bladder suspension 1991) UTI (urinary tract infection) UTI (urinary tract infection) 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 Bladder repair. Ligation of fallopian tube Repair bladder injury, simple Family History Mother No problems noted. Father , DROWNED at age 50. No problems noted. Sister Personal history of malignant neoplasm MELANOMA Sister No problems noted. Grandfather Personal history of malignant neoplasm STOMACH Grandfather Personal history of malignant neoplasm PROSTATE Grandmother Heart disease SC Acute ill-defined cerebrovascular disease Grandmother Personal history of malignant neoplasm UTERINE Aunt , SC Heart disease SC Aunt , SC Heart disease Brother No problems noted. Social History Smoking/Tobacco Use Status: Former Tobacco Use Quit Date: 08/05/20 Smoking risk assessment performed?: Yes Alcohol Intake: current Alcohol Intake frequency: 3 or more drinks per day Alcohol type: hard liquor Drug use: Never Substance use type: does not use Current gender identity: female Do you feel safe at home: Yes Do you feel safe in your relationship?: Yes Additional Social history: Pt has been binge drinking since 4am Exam <Paul Chavira DO - Last Filed: 04/15/21 07:28> Narrative Exam Narrative: 1.Const: Disheveled, somewhat cachectic. 2.Eyes: PERRL, no conjunctival injection, and symmetrical lids. 3.ENT: Atraumatic external nose and ears. Dry MM. Neck: Symmetric, trachea midline, No thyromegaly. 4.CVS: +S1/S2, No murmurs or gallops. Peripheral pulses 2+ and equal in all extremities. Brisk capillary refill in all extremities. 5.RESP: Unlabored respiratory effort. Clear to auscultation bilaterally. No wheezes rales or rhonchi 6.GI: Soft, mild distention, no evidence of acute surgical abdomen, mild tenderness throughout. 7.MSK: Normocephalic/Atraumatic, Extremities w/o deformity or ttp No cyanosis or clubbing, Normal movement of all extremities 8.Skin: Warm, Dry. No rashes or lesions. 9.Neuro: oil field roustabout II-XII grossly intact. Sensation grossly intact, no focal neurologic deficits. 10.Psych: (AAO) x3. Sign Out <Paul Chavira DO - Last Filed: 04/15/21 07:28> Sign Out Data: Sign Out Comment: vomiting, f/u labs/imaging Last updated by Paul Chavira DO at 04/15/21 07:29
[2021-04-15] MEDS: Normal Saline 500 ML IV (07:02)
[2021-04-15] MEDS: Ondansetron 4 MG/2 ML VIAL IVP ×2 (07:02→10:22)
[2021-04-15 07:06] LABS: Abs Immature Grans 0.05 10^3/uL (0.0-0.06); Absolute Basophil Count 0.02 10^3/uL (0.0-0.2); Absolute Eosinophil Count 0.18 10^3/uL (0.0-0.7); Absolute Lymphocyte Count 0.26 10^3/uL (1.2-3.4); Absolute Monocyte Count 0.37 10^3/uL (0.1-0.8); Absolute Neutrophil Count 4.92 10^3/uL (1.2-6.7); Basophils % 0.3; Eosinophils % 3.1; HCT 36.9 % (36.0-46.0); HGB 11.4 g/dL (11.2-15.7); Immature Grans % 0.9; Lymphocytes % 4.5; MCH 33.6 pg (27.0-33.0); MCHC 30.9 % (32.0-36.0); MCV 108.8 fL (80-95); MPV 9.2 fL (8.0-11.0); Monocytes % 6.4; Neutrophils % 84.8; Nucleated RBC 0 %; Platelet Count 105 10^3/uL (130-400); RBC 3.39 10^6/uL (3.93-5.22); RDW 14.1 % (11.7-14.6); RDW-SD 55.9 fL
[2021-04-15 07:08] LABS: Lactate 2.9 mmol/L (0.6-1.4)
[2021-04-15 07:25] LABS: ALT 89 U/L (14-59); AST 156 U/L (15-37); Albumin 4.1 g/dL (3.4-5.0); Alkaline Phosphatase 144 U/L (46-116); Anion Gap 33.9 mmol/L (3-11); BUN 11 mg/dL (7-18); Bilirubin, Total 3.1 mg/dL (0.2-1.0); CO2 10.1 mmol/L (21.0-32.0); Calcium 9.9 mg/dL (8.5-10.1); Chloride 100 mmol/L (98-107); Glucose 235 mg/dL (74-106); Potassium 3.6 mmol/L (3.5-5.1); Sodium 144 mmol/L (136-145); Total Protein 7.5 g/dL (6.4-8.2)
[2021-04-15 07:41] LABS: ETHANOL BLOOD < 3.0 mg/dL (<3)
[2021-04-15 07:49] LABS: Lipase 1482 U/L (73-393)
[2021-04-15] MEDS: Normal Saline 1,000 ML 1000 ML IV (07:55)
--- NOTE | 2021-04-15 08:06 | DI.VRAD_ITS ---
PROCEDURE INFORMATION: Exam: CT Abdomen And Pelvis Without Contrast Exam date and time: 04/15/2021 6:23 AM Age: 75 years old Clinical indication: Other: Vomiting, ETOH, distended abd TECHNIQUE: Imaging protocol: Computed tomography of the abdomen and pelvis without contrast. Radiation optimization: All CT scans at this facility use at least one of these dose optimization techniques: automated exposure control; mA and/or kV adjustment per patient size (includes targeted exams where dose is matched to clinical indication); or iterative reconstruction. COMPARISON: CT CHEST/ABD/PEL WO 02/18/2021 3:40 PM FINDINGS: Liver: Enlarged, fatty liver. Gallbladder and bile ducts: Hyperdense material is seen in the gallbladder which may be contrast or sludge. No calcified stones seen. No wall thickening or biliary ductal dilatation noted. Pancreas: Normal. No ductal dilation. Spleen: Normal. No splenomegaly. Adrenal glands: Normal. No mass. Kidneys and ureters: No hydronephrosis or renal calculi. There are right renal cysts measuring up to 3 cm. An 8 mm hyperdense finding seen exophytic off the left kidney, unchanged from the prior study, likely a complex cyst. Stomach and bowel: Unremarkable. No obstruction. No mucosal thickening. Appendix: Normal appendix. Intraperitoneal space: Unremarkable. No free air. No significant fluid collection. Again seen is a lobulated 5 x 3.4 x 5 cm mass in the presacral region containing fat and soft tissue elements with poorly defined capsule . This has not significantly changed from the prior study. Vasculature: Atherosclerotic aorta without aneurysm. Lymph nodes: Unremarkable. No enlarged lymph nodes. Urinary bladder: Unremarkable as visualized. Reproductive: Unremarkable as visualized. Bones/joints: Degenerative changes throughout the spine. Stable mild retrolisthesis of L1 on L2 and of L2 on L3. There is stable grade 1 anterolisthesis of L4 on L5. Lumbar levoscoliosis. Soft tissues: Small fat containing inguinal hernias. IMPRESSION: No acute findings. Enlarged, fatty liver. Stable presacral mass. Dictated and Authenticated by: Tia Brown MD. Ordering:SHADI Miller MD
--- NOTE | 2021-04-15 10:29 | W.PM.HP.N ---
Date of service: 04/15/21 Time of Service: 10:30 Assessment and Plan Assessment and plan (1) Pancreatitis: Start date: 04/15/21 Start time: 13:00 Status: Chronic Assessment and plan: Lipase of 1482 with vomiting and abdominal pain NPO except sips with meds Banana bag and IVF hydration Monitor labs, Creon when she starts to eat as this is now chronic MVI, folic acid and thiamine to start after banana bag Qualifiers: Chronicity: acute Pancreatitis type: alcohol induced Acute pancreatitis complication: no infection or necrosis Qualified Code(s): K85.20 - Alcohol induced acute pancreatitis without necrosis or infection (2) Vomiting: Start date: 04/15/21 Start time: 13:00 Status: Acute Assessment and plan: Due to pancreatitis, NPO, hydration She can have clears when she is no longer vomiting. Qualifiers: Vomiting type: unspecified Vomiting Intractability: non-intractable Nausea presence: with nausea Qualified Code(s): R11.2 - Nausea with vomiting, unspecified (3) Dehydration: Start date: 04/15/21 Start time: 13:00 Status: Acute Assessment and plan: From vomiting as above (4) Alcohol abuse: Start date: 04/15/21 Start time: 13:00 Status: Chronic Assessment and plan: as above no interest in cessation (5) Iron deficiency anemia: Start date: 04/15/21 Start time: 13:00 Status: Chronic Assessment and plan: Due to chronic alcohol use as above, monitor labs Qualifiers: Iron deficiency anemia type: inadequate dietary iron intake Qualified Code(s): D50.8 - Other iron deficiency anemias (6) Transaminitis: Start date: 04/15/21 Start time: 13:00 Status: Acute Assessment and plan: Monitor liver enzymes IVF hydration (7) Ambulatory dysfunction: Start date: 04/15/21 Start time: 13:00 Status: Chronic Assessment and plan: due to alcohol with rib fracture PT consulted (8) Frequent falls: Start date: 04/15/21 Start time: 13:00 Status: Chronic Assessment and plan: as above (9) Presacral mass: Start date: 04/15/21 Start time: 13:00 Status: Chronic Assessment and plan: as above patient is aware and does not want further work up (10) Alcohol intoxication: Start date: 04/15/21 Start time: 16:11 Status: Chronic Assessment and plan: Chronic alcohol dependence no interest in quitting alcohol. Multiple falls due to this including rib fractures. As above Qualifiers: Complication of substance-induced condition: uncomplicated Qualified Code(s): F10.920 - Alcohol use, unspecified with intoxication, uncomplicated (11) DVT prophylaxis: Start date: 04/15/21 Start time: 16:17 Status: Acute Assessment and plan: Enoxaparin, initally concern for hemorrhagic renal cysts. u/s r/o revealing no obvious renal masses or hydronephrosis, small single cysts, no evidence of bleeding. NO cva tenderness (12) Discharge planning issues: Start date: 04/15/21 Start time: 13:00 Status: Acute Assessment and plan: Home when medically ready History of Present Illness History of Present Illness Chief Complaint: Pancreatitis, dehydration Narrative: 75 y.o female with mulitple medical problems including chronic alcohol intoxication, alcoholic gastritis, hypertension, high cholesterol, chronic transaminitis, presented to ED for vomiting was hydrated and up for admission but refused and went home, 16 hours later she returned due to hyperemesis. She was unable to take her medication due to vomiting. She drinks alcohol regularly. Labs in the ED remarkable for lipase of 1482, elevated liver enzymes, 2.9 lactate, anion gap of 3.9. She was given fluid boluses in the ED. She is Hypertensive with tachycardia. CT abd pelvis revealing a lobulated noncalcified mass in the presacral region measuring approximately 5 x 3 x 4.3 cm, similar in size to CT scan of 02/18/2021 and not associated with adjacent bone destruction of the sacrum. No parapelvic masses nor adenopathy nor ascites. Multiple cysts and probable hemorrhagic cysts in the right kidney, somewhat difficult to assess without IV contrast. Multiple bilateral healed rib fractures again noted. Subtle streaking around the pancreas which may be exaggerated by motion artifact. Correlation any clinical signs of pancreatitis recommended. Hepatic steatosis noted. No focal hepatic lesions identified. She has been asked to be admitted to [facility] for further management. Leticia is being admitted to m/s with telemetry with IV lopressor as needed for HR and BP. Banana bag along with creon for repeat pancreatitis. Will trial clears. If she is vomiting or in pain will change to NPO. Renal u/s to assess for hemorrhagic cysts in the right kidney. Zofran for nausea, PT for weakness. Monitor daily labs. Will hold any anticoagulation at this time due to possible renal hemorrhage use scd and teds. Review of Systems All systems reviewed & are unremarkable except as noted in HPI and below [facility] Medical History Acute alcoholism Acute UTI Adjustment disorder with depressed mood AMBER (acute kidney injury) Alcohol abuse Alcohol intoxication Alcohol intoxication Alcoholic gastritis without bleeding Alcoholic ketosis Allergic rhinitis Anemia Back pain, chronic Blunt head trauma Blunt trauma of multiple sites of trunk Calcific tendinitis of left shoulder CAP (community acquired pneumonia) Cataract (11/07/15) Cervical radicular pain neck pain and DJD [facility] Cervical strain 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) pls refrain from alcohol Chronic alcoholism she will not stop drinking unless she checks with me, so that we can help her avert withdrawal I do not think she is capable on her own--she would need placement to achieve required goal of 3 months of sobriety Chronic diarrhea Closed displaced fracture of proximal phalanx of right index finger with routine healing (06/03/17) Closed right humeral fracture Contusion of left little finger Corneal ulcer, right (~08/23/18) 08/23/18; [facility] Dehydration Depression Diarrhea Discharge planning issues DVT prophylaxis Dystrophic nail Elev transaminase/LDH due to alcohol Epigastric abdominal pain Facial fracture due to fall Facial laceration Fall as cause of accidental injury at home as place of occurrence Fall at home Fracture of humerus, left, closed Genital herpes simplex recurrent gential; suppressive Valtrex GERD (gastroesophageal reflux disease) GI bleed (12/20/16) Head contusion Headache History of alcohol abuse Humerus fracture (09/12/19) Right Hyperlipidemia Hypertension Hypokalemia Hypokalemia Hypokalemia Hypomagnesemia Incidental lung nodule, greater than or equal to 8mm 1cm, spiculated, stable for many years, recommend f/u in 6 mo Intractable vomiting Leukopenia Macrocytosis (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 Multiple contusions Multiple fractures of ribs Multiple rib fractures 03/11/19 [facility] Nausea and vomiting in adult Non-cardiac chest pain (09/21/16) [facility] 09/21/16 NEGATIVE MP Osteoarthritis Osteopenia Palliative care patient (03/21/17) Pancreatitis, alcoholic, acute Peripheral edema Photophobia of right eye Pleural effusion on left 03/11/19 [facility] Pneumonia Presacral mass (~09/15/18) 09/15/18 [facility] Rash Rib pain on right side Right rib fracture Sacral mass Sciatica right, epidural injuections PainCare Suicidal ideation Tendinitis of left rotator cuff Tubular adenoma of colon (01/28/17) Urinary incontinence 01/24/13 urethral suspension and sling at [facility] (bladder suspension 1991) UTI (urinary tract infection) UTI (urinary tract infection) 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 Bladder repair. Ligation of fallopian tube Repair bladder injury, simple Family History Mother No problems noted. Father , DROWNED at age 50. No problems noted. Sister Personal history of malignant neoplasm MELANOMA Sister No problems noted. Grandfather Personal history of malignant neoplasm STOMACH Grandfather Personal history of malignant neoplasm PROSTATE Grandmother Heart disease SC Acute ill-defined cerebrovascular disease Grandmother Personal history of malignant neoplasm UTERINE Aunt , SC Heart disease SC Aunt , SC Heart disease Brother No problems noted. Social History Smoking/Tobacco Use Status: Former Tobacco Use Quit Date: 08/05/20 Smoking risk assessment performed?: Yes Alcohol Intake: current Alcohol Intake frequency: 3 or more drinks per day Alcohol type: hard liquor Drug use: Never Substance use type: does not use Current gender identity: female Do you feel safe at home: Yes Do you feel safe in your relationship?: Yes Additional Social history: Pt has been binge drinking since 4am Meds Allergies and Home Medications Allergies Allergy/AdvReac Type Severity Reaction Status Date / Time Penicillins Allergy Mild Rash Verified 04/15/21 07:04 ramipril Allergy Unknown ITCHING Verified 04/15/21 07:04 meperidine [From Demerol] AdvReac Severe Nausea Verified 04/15/21 07:04 bupropion AdvReac Mild GI upset Verified 04/15/21 07:04 AMBER Inhibitors AdvReac Unknown COUGH Verified 04/15/21 07:04 alendronate sodium AdvReac Unknown GI Distress Verified 04/15/21 07:04 clarithromycin AdvReac Unknown intolerant Verified 04/15/21 07:04 paroxetine AdvReac Unknown Diarrhea Verified 04/15/21 07:04 Home Medications Medication Instructions Recorded Confirmed Type Refresh Plus 1 drp OU Q4H WHILE AWAKE #30 each 06/20/19 04/15/21 Rx magnesium oxide 400 mg PO BID #180 cap 07/17/19 04/15/21 Rx food supplemt, lactose-reduced 414 ml PO DAILY #11484 ml 08/24/19 04/15/21 Rx dicyclomine 10 mg capsule 10 mg PO QID PRN #40 cap 11/06/19 04/15/21 Rx ipratropium 0.5 mg-albuterol 3 mg 3 ml IH QID PRN #90 ml 01/04/20 04/15/21 Rx (2.5 mg base)/3 mL nebulization soln fluticasone propionate 50 1 spray NS daily prn #9.9 ml 03/25/20 04/15/21 Rx mcg/actuation nasal spray,suspension Bio-K plus 1 cap PO DAILY #60 cap 05/12/20 04/15/21 Rx celecoxib 100 mg capsule 100 mg PO BID #60 cap 06/13/20 04/15/21 Rx lifitegrast 5 % eye drops in a 1 drp OPHTHALMIC (EYE) BID 08/05/20 04/15/21 History dropperette sennosides [Senokot] 8.6 mg PO PRN PRN 08/08/20 04/15/21 History cholestyramine (with sugar) 4 gram 1 pwd PO BID #378 g 08/27/20 04/15/21 Rx oral powder folic acid 1 mg tablet 1 mg PO DAILY #90 tab 09/05/20 04/15/21 Rx gabapentin 300 mg capsule 300 mg PO BID #90 cap 09/05/20 04/15/21 Rx metoprolol tartrate 50 mg tablet 50 mg PO BID #180 tab 09/05/20 04/15/21 Rx multivitamin 1 tab PO DAILY #90 tab 09/05/20 04/15/21 Rx pantoprazole 40 mg tablet,delayed 40 mg PO DAILY #90 tab 09/05/20 04/15/21 Rx release potassium chloride 10 mEq 10 meq PO DAILY #90 tab 09/05/20 04/15/21 Rx tablet,extended release(part/cryst) thiamine HCl (vitamin B1) 100 mg 100 mg PO DAILY #90 tab 09/05/20 04/15/21 Rx tablet venlafaxine 150 mg 150 mg PO DAILY #30 cap 09/05/20 04/15/21 Rx capsule,extended release 24 hr doxepin 3 mg tablet 3 mg PO BID PRN #30 tab 10/15/20 04/15/21 Rx hydroxyzine HCl 25 mg tablet 25 mg PO TID PRN #30 tab 10/17/20 04/15/21 Rx Eucerin 0 g TOPICAL TID #1 unit 10/25/20 04/15/21 Rx Restasis 0.4 ml OU BID #10 ea 10/25/20 04/15/21 Rx diphenhydramine HCl 25 mg PO Q4H PRN PRN #20 cap 10/25/20 04/15/21 Rx hydrocortisone 0 g TOPICAL TID #1 applic 10/25/20 04/15/21 Rx amlodipine 5 mg PO DAILY 11/12/20 04/15/21 History naltrexone 50 mg PO DAILY 11/12/20 04/15/21 History acamprosate 333 mg tablet,delayed 333 mg PO TID #90 tab 11/26/20 04/15/21 Rx release fluoxetine 10 mg tablet 10 mg PO DAILY #30 tab 03/27/21 04/15/21 Rx ondansetron 4 mg disintegrating 4 mg PO Q8H PRN #20 tab 03/27/21 04/15/21 Rx tablet sucralfate 1 gram tablet 1 g PO AC & HS #120 tab 04/04/21 04/15/21 Rx Exam Narrative Exam Narrative: Const: sitting up in bed, disheveled, chronically ill looking, with tremors, AAOx3, vomiting, making NPO HENMT/EYES: PERRLA, EOMI. No JVD, no lymphedema Chest: normal no scars or rashes Resp: clear diminished. Cardio: tachy, but regular, no murmur GI: vomiting, tender to palpation to Right upper quad, and mid abd,obese contour Back: normal spinal curvature, no CVA tenderness Skin: multiple brusies in multiple areas Neuro: AAOx3 Extremity: no edema, clubbing or cyanosis Results Labs Result diagrams: 04/15/21 06:54 04/15/21 06:54 Labs: Laboratory Results - last 24 hr 04/15/21 04/15/21 04/15/21 06:54 06:54 06:54 WBC 5.80 D RBC 3.39 L Hgb 11.4 Hct 36.9 MCV 108.8 H MCH 33.6 H MCHC 30.9 L RDW 14.1 Plt Count 105 L MPV 9.2 Immature Gran % 0.9 Neutrophils % 84.8 Lymphocytes % 4.5 Monocytes % 6.4 Eosinophils % 3.1 Basophils % 0.3 Nucleated RBC % 0 Absolute Neutrophils 4.92 Absolute Lymphocytes 0.26 L Absolute Monocytes 0.37 Absolute Eosinophils 0.18 Absolute Basophils 0.02 VBG Lactate 2.9 H* Sodium 144 Potassium 3.6 Chloride 100 Carbon Dioxide 10.1 L Anion Gap 33.9 H BUN 11 Creatinine 1.0 Estimated GFR/1.73 m2 54.20 Glucose 235 H D Calcium 9.9 Total Bilirubin 3.1 H AST 156 H ALT 89 H Alkaline Phosphatase 144 H Total Protein 7.5 Albumin 4.1 Lipase 1482 H Ethyl Alcohol < 3.0 Last Vital Signs Temp 36.7 C 04/15/21 06:21 Pulse 133 H 04/15/21 10:17 Resp 18 04/15/21 10:20 BP 157/104 H 04/15/21 10:17 Pulse Ox 96 04/15/21 10:20
[2021-04-15 10:33] LABS: Source Nasal/Nares
[2021-04-15] MEDS: Lactated Ringers 1,000 ML 500 ML IV (10:51)
[2021-04-15] MEDS: Metoprolol 5 MG/5 ML VIAL IVP ×2 (11:04→14:18)
[2021-04-15 11:27] LABS: COVID-19 PCR Negative (Negative)
[2021-04-15 12:41] LABS: Bilirubin Small (Negative); Blood Trace-intact (Negative); Clarity Clear (Clear); Glucose Negative (Negative); Ketones >=160 mg/dL (Negative); Leukocyte Esterase Negative (Negative); Nitrite Negative (Negative); Specific Gravity 1.025 (1.005-1.025); Urobilinogen 0.2 EU/dL (Up TO 0.2)
[2021-04-15] MEDS: Sucralfate 1 GM TAB PO ×3 (12:44→21:46)
[2021-04-15 12:53] LABS: Bacteria Many HPF (Negative); C & S Indicated? No/Sq. Contamination; Casts 5-10 Hyaline LPF (Negative); Crystals Few Amorphous HPF (Negative); Epithelial Cells Many HPF (Negative); Mucus Negative (Negative)
[2021-04-15] MEDS: MAGNESIUM SULFATE 8.12 MEQ, MULTIVITAMIN 10 ML, THIAMINE 100 MG, FOLIC ACID 1 MG in Nor... 168.867 MG IV (13:33)
[2021-04-15] MEDS: Creon, Lipase 6,000 CAPCR 1 CAP PO (13:51)
[2021-04-15] MEDS: Docusate Sodium 100 MG CAP PO ×2 (13:51→20:02)
[2021-04-15] MEDS: Refresh PLUS Eye Drops 0.4ml OU ×3 (13:52→20:02)
[2021-04-15] MEDS: Pantoprazole 40 MG VIAL IVP (14:46)
[2021-04-15] MEDS: amLODIPine 5 MG TAB PO (15:33)
--- NOTE | 2021-04-15 15:41 | CHAPLAIN ---
Leticia was in bed, connect to a heart monitor when visited. We know each other from her previous admissions. She was not thinking clearly when I saw her this morning. I will visit again tomorrow.
[2021-04-15] MEDS: hydrALAZINE 20 MG/ML VIAL 10 MG IVP (16:22)
[2021-04-15] MEDS: Lactated Ringers 1,000 ML 150 ML IV (20:01)
[2021-04-15] MEDS: hydrOXYzine HCL 25 MG TAB PO (20:03)
[2021-04-15] MEDS: Metoprolol 50 MG TAB PO (20:03)
[2021-04-15] MEDS: Normal Saline Flush 10 ML SYR IVP (21:46)
[2021-04-16] VITALS (7 sets, daily range): BP systolic 148–176; BP diastolic 83–100; PULSE 81–117; RESP 18–22; TEMP 36.4–37.5; O2SAT 97–99
--- NOTE | 2021-04-16 | DI.RAD_ITS ---
Exam(s) XR PORTABLE CHEST AP EXAM: XR PORTABLE CHEST AP CLINICAL HISTORY: r/o asp penumo. TECHNIQUE: 2D digital imaging was performed. COMPARISON: CR,XR XR CHEST 1V IN DI DEPT from 01/27/[address] ABDOMEN PELVIS WO from 04/15/[address] ABDOMEN PELVIS WO from 04/15/2021 FINDINGS: Heart size is upper normal. The mediastinum is not widened. Lungs are clear. No infiltrates nor obvious pleural effusions. healed rib fractures noted bilaterally. Pulmonary edema or pleural effusions. Left clavicle fracture there is chronic appearance. IMPRESSION: No acute pulmonary findings on this single AP portable view of the chest. DATA REPOSITORY: RADIATION DOSE DELIVERED: All CT scans at this facility use at least one of these dose optimization techniques: automated exposure control; mA and/or kV adjustment per patient size (includes targeted e xams where dose is matched to clinical indication); or iterative reconstruction.
[2021-04-16] MEDS: Refresh PLUS Eye Drops 0.4ml OU ×5 (01:17→20:16)
[2021-04-16] MEDS: LORazepam 2 MG/ML VIAL 0.5 MG IVP ×3 (01:36→22:15)
[2021-04-16] MEDS: Normal Saline Flush 10 ML SYR IVP ×3 (01:37→22:14)
[2021-04-16] MEDS: Lactated Ringers 1,000 ML 150 ML IV (01:37)
[2021-04-16 07:14] LABS: ALT 57 U/L (14-59); AST 107 U/L (15-37); Albumin 3.3 g/dL (3.4-5.0); Alkaline Phosphatase 112 U/L (46-116); Anion Gap 25.5 mmol/L (3-11); BUN 11 mg/dL (7-18); Bilirubin, Total 2.5 mg/dL (0.2-1.0); CO2 16.5 mmol/L (21.0-32.0); Chloride 104 mmol/L (98-107); Glucose 119 mg/dL (74-106); Magnesium 1.4 mg/dL (1.8-2.4); Sodium 146 mmol/L (136-145); Total Protein 6.1 g/dL (6.4-8.2)
[2021-04-16 07:16] LABS: Potassium 2.3 mmol/L (3.5-5.1)
[2021-04-16 07:40] LABS: Abs Immature Grans 0.04 10^3/uL (0.0-0.06); Absolute Basophil Count 0.01 10^3/uL (0.0-0.2); Absolute Lymphocyte Count 0.46 10^3/uL (1.2-3.4); Absolute Monocyte Count 0.51 10^3/uL (0.1-0.8); Absolute Neutrophil Count 4.45 10^3/uL (1.2-6.7); Basophils % 0.2; HCT 34.4 % (36.0-46.0); HGB 11.2 g/dL (11.2-15.7); Immature Grans % 0.7; Lymphocytes % 8.4; MCH 34.4 pg (27.0-33.0); MCHC 32.6 % (32.0-36.0); MCV 105.5 fL (80-95); MPV 8.8 fL (8.0-11.0); Monocytes % 9.3; Neutrophils % 81.4; Nucleated RBC 0 %; RBC 3.26 10^6/uL (3.93-5.22); RDW 13.7 % (11.7-14.6); RDW-SD 53.1 fL; WBC 5.47 10^3/uL (4.4-10.8)
[2021-04-16] MEDS: MAGNESIUM SULFATE 4 GM/100 ML BAG IVPB (07:59)
[2021-04-16] MEDS: Potassium Chloride 20 MEQ TABCR 40 MEQ PO ×2 (08:03→19:03)
[2021-04-16 08:16] LABS: Diff Comment Diff Reviewed; Macrocytosis 2+
--- NOTE | 2021-04-16 09:17 | IN_ITS ---
Date of service: 04/16/21 Time of Service: 09:17 PT Notes Visit Reasons: Acute pancreatitis,Dehydration,intractable vomitin Inpatient Physical Therapy Evaluation Date: 04/16/2021 Referring Doctor: Pat Navarro NP PT Orders: PT CONSULT:Eval/Treat. Precautions: Standard. Falls. IV access through anterior tibial vein on the R side. Patient Profile/Admitting Diagnosis: Leticia is a 75-year-old female who is well known to our service who presented to the ED on 04/15/2021 due to persistent vomitting and dehydration. Cait is diagnosed with pancreatitis, Dehaydration, ETOH abuse, MARIELA, transaminitis, ambulatory dysfunction, and frequent falls. PMHX: Medical History Acute alcoholism Acute UTI Adjustment disorder with depressed mood AMBER (acute kidney injury) Alcohol abuse Alcohol intoxication Alcohol intoxication Alcoholic gastritis without bleeding Alcoholic ketosis Allergic rhinitis Anemia Back pain, chronic Blunt head trauma Blunt trauma of multiple sites of trunk Calcific tendinitis of left shoulder CAP (community acquired pneumonia) Cataract (11/07/15) Cervical radicular pain neck pain and DJD [facility] Cervical strain 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) pls refrain from alcohol Chronic alcoholism she will not stop drinking unless she checks with me, so that we can help her avert withdrawal I do not think she is capable on her own--she would need placement to achieve required goal of 3 months of sobriety Chronic diarrhea Closed displaced fracture of proximal phalanx of right index finger with routine healing (06/03/17) Closed right humeral fracture Contusion of left little finger Corneal ulcer, right (~08/23/18) 08/23/18; [facility] Dehydration Depression Diarrhea Discharge planning issues DVT prophylaxis Dystrophic nail Elev transaminase/LDH due to alcohol Epigastric abdominal pain Facial fracture due to fall Facial laceration Fall as cause of accidental injury at home as place of occurrence Fall at home Fracture of humerus, left, closed Genital herpes simplex recurrent gential; suppressive Valtrex GERD (gastroesophageal reflux disease) GI bleed (12/20/16) Head contusion Headache History of alcohol abuse Humerus fracture (09/12/19) Right Hyperlipidemia Hypertension Hypokalemia Hypokalemia Hypokalemia Hypomagnesemia Incidental lung nodule, greater than or equal to 8mm 1cm, spiculated, stable for many years, recommend f/u in 6 mo Intractable vomiting Leukopenia Macrocytosis (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 Multiple contusions Multiple fractures of ribs Multiple rib fractures 03/11/19 [facility] Nausea and vomiting in adult Non-cardiac chest pain (09/21/16) [facility] 09/21/16 NEGATIVE MP Osteoarthritis Osteopenia Palliative care patient (03/21/17) Pancreatitis, alcoholic, acute Peripheral edema Photophobia of right eye Pleural effusion on left 03/11/19 [facility] Pneumonia Presacral mass (~09/15/18) 09/15/18 [email or web address] Rash Rib pain on right side Right rib fracture Sacral mass Sciatica right, epidural injuections [facility] Suicidal ideation Tendinitis of left rotator cuff Tubular adenoma of colon (01/28/17) Urinary incontinence 01/24/13 urethral suspension and sling at [facility] (bladder suspension 1991) UTI (urinary tract infection) UTI (urinary tract infection) 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 Bladder repair. Ligation of fallopian tube Repair bladder injury, simple Social History/Home Situation: Leticia lives in a private home in [place], [place]. She has a caregiver who comes in daily 4 days per week for 2 hours each time to assist with laundry, minor house chores, and grocery shopping. Patient is independent with ADLs using a front wheeled walker. She receives meals on wheels. She no longer drives. Equipment Owned/DME: [employer], [place], grab bars, emergency alert device Subjective: She wants to to talk with the doctor, eat something and drink. Defiant about her NPO status. Nurse Amber aware. However, agreeable to PT consult. Adamant about keeping room dark as the light hurts her eyes. Complains of nausea. Objective: General Observation: Telemetry. IV access through anterior tibial vein on the R side. Mental Status: Alert and oriented. Aware of where she is. Unclear about time and date. Pain: 5-6/10 general body ache ROM: Right Upper Extremity: Shoulder Flexion allows up to 90 degrees. Shoulder abduction allows up to 70 degrees. Elbow flexion WFL. Wrist flexion WFL. Functional opening and closing of hand WFL. Left Upper Extremity: Shoulder Flexion allows up to 100 degrees. Shoulder abduction allows up to 90 degrees. Elbow flexion WFL. Wrist flexion WFL. Functional opening and closing of hand WFL. Right Lower Extremity: Hip flexion allows up to 20 degrees beyond 90 while seated at edge of bed. Hip abduction WFL. Knee flexion 30-90 degrees. Knee extension -30 degrees. Ankle dorsiflexion WFL. Ankle plantarflexion WFL. Left Lower Extremity: Hip flexion allows up to 20 degrees beyond 90 while seated at edge of bed. Hip abduction WFL. Knee flexion 30-90 degrees. Knee extension - 30 degrees. Ankle dorsiflexion WFL. Ankle plantarflexion WFL. Strength: Right Upper Extremity: Shoulder flexors 3-/5. Shoulder abductors 3-/5. Elbow flexors 4/5. Elbow extensors 4/5. Customer Service Analyst strong. Left Upper Extremity: Shoulder flexors 3-/5. Shoulder abductors 3-/5. Elbow flexors 4/5. Elbow extensors 4/5. Customer Service Analyst strong. Right Lower Extremity: Hip flexors 3-/5. Hip abductors 4-/5. Knee flexors 3-/5. Knee extensors 3-/5. Ankle dorsiflexors 4-/5. Ankle plantarflexors 4-/5. Left Lower Extremity: Hip flexors 3-/5. Hip abductors 4-/5. Knee flexors 3-/5. Knee extensors 3-/5. Ankle dorsiflexors 4-/5. Ankle plantarflexors 4-/5. Bed Mobility/Transfers: Supine to sit minimal assist with HOB at 45 degrees Sit to stand contact-guard assist Stand to sit contact-guard assist Bed to chair contact-guard assist Gait: Patient exhibited reciprocal gait for 25 feet x 2 requiring contact-guard assist from PT with wheelchair follow. Decreased violeta. Decreased step length and height. Still nauseous. Balance: Static Sitting: Normal Dynamic Sitting: Normal Static Standing: Fair Dynamic Standing: Fair Special Tests: Mobility Limitations Standardized Measure [facility] 6 clicks Basic Mobility Inpatient Short Form: Raw Score: 18 CMS Score: 47% deficit Informed Consent/Education: Patient instructed in purpose of PT consult and plan of care. Assessment: Patient demonstrates generalized weakness, functional mobility decline requiring the need for front wheeled walker, difficulty with walking with walking, impairment with balance, and increased fall risk resulting from current diagnoses. She will benefit from PT services to address impairments and functional limitations listed below. Patient presents with clinical signs and symptoms consistent with current/admitting diagnoses that have resulted to mobility limitations, gait instability, generalized weakness, and impairment of motor control as demo nstrated by the following impairment level findings: 1. Decreased strength to B UE/LE major muscle groups 2. Impaired standing balance 3. Impaired activity tolerance Impairments are contributing to the following functional limitations: 1. Increased dependence with transfers 2. Inability to safely ambulate without assistive device and physical assistance 3. Increase completion time for mobility ADL performance 4. Increased fall risk 5. Inability to negotiate steps alone safely 6. Decreased ambulation distance Patient is assessed as a 61293 moderate complexity based on the following: History: 75-year-old female with impairment level findings, functional impairments, medical history, and [facility] deficit score of 47% Examination: Demonstrable impairment in strength, balance, and range of motion with underlying impairments and functional limitations as documented above Presentation: Evolving Decision Makin moderate complexity Goals: Goals X1 week 1. Supine-Sit independent 2. Sit-Supine independent 3. Sit-Stand independent 4. Stand-Sit independent 5. Bed-Chair independent 6. Chair-Bed independent 7. Independent gait on level surface with use of straight cane for at least 300 feet without report of pain nor dyspnea 8. Independent stair negotiation while holding onto bilateral rails for at least 5 steps without report of pain nor dyspnea 9. Good static and dynamic standing balance/tolerance DISCHARGE RECOMMENDATIONS: Patient will benefit from group home facility placement for continued skilled physical therapy services in order to progress mobility level, strength, and balance in preparation for a safe discharge to home. TREATMENT CODE/TIME: 37358 x 20 minutes, 16261 x 18 minutes beginning at 9:17 AM. Thank you for the opportunity to participate in the care of this patient. Tawana Cruz PT, DPT, CLT [facility] [place], [place]
[2021-04-16] MEDS: POTASSIUM CHLORIDE 20 MEQ/100 ML BAG 50 MEQ IVPB ×3 (09:27→19:04)
[2021-04-16] MEDS: Pantoprazole 40 MG VIAL IVP (09:30)
[2021-04-16] MEDS: Naltrexone 50 MG TAB PO (09:31)
[2021-04-16] MEDS: Folic Acid 1 MG TAB PO (09:31)
[2021-04-16] MEDS: Enoxaparin 40 MG/0.4 ML SYR SC (09:31)
[2021-04-16] MEDS: Thiamine 100 MG TAB PO (09:31)
[2021-04-16] MEDS: Metoprolol 50 MG TAB PO ×2 (09:31→20:16)
[2021-04-16] MEDS: Docusate Sodium 100 MG CAP PO ×3 (09:31→20:16)
[2021-04-16] MEDS: Multivitamin TAB 1 TAB PO (09:31)
[2021-04-16] MEDS: FLUoxetine 10 MG TAB PO (09:31)
[2021-04-16] MEDS: amLODIPine 5 MG TAB PO (09:31)
--- NOTE | 2021-04-16 11:35 | PDOC.CMIN ---
- If Service Date Differs Date of service: 04/16/21 Time of Service: 11:35 Care Management Initial Assess REASON FOR HOSPITALIZATION:: acute pancreatitis, dehydration, intractable vomiting PAST MEDICAL HISTORY/PAST SURGICAL HISTORY:: Medical History. Acute alcoholism. Acute UTI. Adjustment disorder with depressed mood. AMBER (acute kidney injury). Alcohol abuse. Alcohol intoxication. Alcohol intoxication. Alcoholic gastritis without bleeding. Alcoholic ketosis. Allergic rhinitis. Anemia. Back pain, chronic. Blunt head trauma. Blunt trauma of multiple sites of trunk. Calcific tendinitis of left shoulder. CAP (community acquired pneumonia). Cataract (11/07/15). Cervical radicular pain. neck pain and DJD. [facility]. Cervical strain. 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). pls refrain from alcohol. Chronic alcoholism. she will not stop drinking unless she checks with me, so that we can help her avert withdrawal. I do not think she is capable on her own--she would need placement to achieve required goal of 3 months of sobriety. Chronic diarrhea. Closed displaced fracture of proximal phalanx of right index finger with routine healing (06/03/17). Closed right humeral fracture. Contusion of left little finger. Corneal ulcer, right (~08/23/18). 08/23/18; [facility]. Dehydration. Depression. Diarrhea. Discharge planning issues. DVT prophylaxis. Dystrophic nail. Elev transaminase/LDH. due to alcohol. Epigastric abdominal pain. Facial fracture due to fall. Facial laceration. Fall as cause of accidental injury at home as place of occurrence. Fall at home. Fracture of humerus, left, closed. Genital herpes simplex. recurrent gential; suppressive Valtrex. GERD (gastroesophageal reflux disease). GI bleed (12/20/16). Head contusion. Headache. History of alcohol abuse. Humerus fracture (09/12/19). Right. Hyperlipidemia. Hypertension. Hypokalemia. Hypokalemia. Hypokalemia. Hypomagnesemia. Incidental lung nodule, greater than or equal to 8mm. 1cm, spiculated, stable for many years, recommend f/u in 6 mo. Intractable vomiting. Leukopenia. Macrocytosis (09/26/14). due to alcohol. Multiple contusions. Multiple fractures of ribs. Multiple rib fractures. [facility]. Nausea and vomiting in adult. Non-cardiac chest pain (09/21/16). [facility] 09/21/16 NEGATIVE MP. Osteoarthritis. Osteopenia. Palliative care patient (03/21/17). Pancreatitis, alcoholic, acute. Peripheral edema. Photophobia of right eye. Pleural effusion on left. 03/11/19 [facility]. Pneumonia. 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 09/15/18 [facility]. Rash. Rib pain on right side. Right rib fracture. Sacral mass. Sciatica. right, epidural injuections. [facility]. Suicidal ideation. Tendinitis of left rotator cuff. Tubular adenoma of colon (01/28/17). Urinary incontinence. 01/24/13 urethral suspension and sling at [facility]. (bladder suspension 1991). UTI (urinary tract infection). UTI (urinary tract infection). Vision loss of right eye. 08/17/18;[facility]-. Wernicke encephalopathy. Surgical History. Bladder Surgery. suspension. Colonoscopy - MAC (01/28/17). EGD - MAC (12/20/16). History of bilateral ligation of fallopian tubes. History of Surgical Procedure. a. Bladder repair. Ligation of fallopian tube. Repair bladder injury, simple PREVIOUS FUNCTIONAL STATUS/SOCIAL/FAMILY SUPPORTS:: Leticia lives alone with her dog and 4 cats in her own home in [place], [place]. She reports she has a sister and her sister is the one caring for her animals while she is in the hospital. Leticia also has a caregiver, Armida, who comes in four times a week for two hours a day. Leticia shares her son Seth is her DPOA. CURRENT FUNCTIONAL STATUS:: Leticia was resting in bed when CM met with her. She reported that she is not feeling well today. She appeared alert and oriented, but also stated that she has not eaten in four days. CM stated that she was admitted yesterday from the ED, and Leticia disagreed, stating that she has been at [facility] for four days. Leticia asked for CM to turn the lights off, as she wanted to rest. CM will continue to follow. ADVANCE DIRECTIVES:: DNR/COLST on file Has patient been provided with info about the portal/API?: Yes Did the patient sign up for the portal?: Yes CODE STATUS:: DNR/DNI INSURANCE COVERAGE / FINANCIAL ISSUES:: [facility] PPO (MCR Replacement) CURRENT HOME/COMMUNITY SERVICES/EQUIPMENT:: Leticia owns a walker, a cane, and a toilet seat riser. She has a caregiver four days a week for two hours per day. She currently has HH SN, OT. PRIMARY CARE PHYSICIAN:: Lavelle Galindo MD POTENTIAL DISCHARGE NEEDS:: follow up with PCP and discharge plan of care. PATIENT/FAMILY EDUCATION NEEDS:: Review of discharge instructions, medications, follow up plan, limitations,Ask Me Three ANTICIPATED BARRIERS TO DISCHARGE:: None identified at this time. TRANSPORTATION:: Via [facility] private vehicle. PLAN:: Leticia will likely be discharged home with a resumption of HH services. She will follow up with her community providers and plan of care. Leticia will transport via [facility] coordinated by CM. CM will continue to support Leticia and her discharge planning needs.
[2021-04-16 12:20] LABS: Potassium 3.1 mmol/L (3.5-5.1)
[2021-04-16] MEDS: Acetaminophen 325 MG TAB PO (13:35)
--- NOTE | 2021-04-16 15:03 | PT.INTREAT ---
PT Notes Visit Reasons: Acute Pancreatitis,Dehydration,Intractable Vomitin 04/16/2021 SUBJECTIVE: Leticia stating she wants to eat. Less nausea reported. Needs to go the bathroom. OBJECTIVE: TRANSFERS Supine to sit: Min A Sit to supine: Min A Sit to stand: CGA Stand to sit: CGA GAIT Device: FWW Weight bearing: Full Assist: CGA distance: 25'x2 Deviation: Decreased violeta, no LOB THEREX: Deferred due to fatigue. ASSESSMENT: Minimal assist with transfers and gait today. She is not able to answer me when asked if she knew where she was. Pt will benefit from continued PT services to address gait deficits and strength deficits. PLAN: Continue current POC. Treatment time: 20 minutes([id number]) Odette Saul PTA Clinic location: [facility] [place], [place]
--- NOTE | 2021-04-16 16:50 | PGE_ITS ---
Date of Service Date of service: 04/16/21 Time of Service: 16:51 Assessment and Plan Assessment and plan (1) Pancreatitis: Start date: 04/16/21 Start time: 16:54 Status: Chronic Assessment and plan: Lipase of 1482 with vomiting and abdominal pain NPO except sips with meds Potassium IVF hydration as potassium was 2.3 today repeat is 3.1 will replete this afternoon and recheck Monitor labs, Creon when she starts to eat as this is now chronic MVI, folic acid and thiamine Qualifiers: Chronicity: acute Pancreatitis type: alcohol induced Acute pancreati tis complication: no infection or necrosis Qualified Code(s): K85.20 - Alcohol induced acute pancreatitis without necrosis or infection (2) Vomiting: Start date: 04/16/21 Start time: 17:00 Status: Acute Assessment and plan: Due to pancreatitis, NPO, hydration She can have clears when she is no longer vomiting. Qualifiers: Vomiting type: unspecified Vomiting Intractability: non-intractable Nausea presence: with nausea Qualified Code(s): R11.2 - Nausea with vomiting, unspecified (3) Dehydration: Start date: 04/16/21 Start time: 17:00 Status: Acute Assessment and plan: From vomiting as above (4) Alcohol abuse: Start date: 04/16/21 Start time: 17:00 Status: Chronic Assessment and plan: as above no interest in cessation (5) Iron deficiency anemia: Start date: 04/16/21 Start time: 17:01 Status: Chronic Assessment and plan: Due to chronic alcohol use as above, monitor labs Qualifiers: Iron deficiency anemia type: inadequate dietary iron intake Qualified Code(s): D50.8 - Other iron deficiency anemias (6) Transaminitis: Start date: 04/16/21 Start time: 17:01 Status: Acute Assessment and plan: Monitor liver enzymes IVF hydration continue to monitor (7) Ambulatory dysfunction: Start date: 04/16/21 Start time: 17:01 Status: Chronic Assessment and plan: due to alcohol with rib fracture PT consulted (8) Frequent falls: Start date: 04/16/21 Start time: 17:01 Status: Chronic Assessment and plan: as above (9) Presacral mass: Start date: 04/16/21 Start time: 17:01 Status: Chronic Assessment and plan: as above patient is aware and does not want further work up (10) Alcohol intoxication: Start date: 04/16/21 Start time: 17:01 Status: Chronic Assessment and plan: Chronic alcohol dependence no interest in quitting alcohol. Multiple falls due to this including rib fractures. As above Qualifiers: Complication of substance-induced condition: uncomplicated Qualified Code(s): F10.920 - Alcohol use, unspecified with intoxication, uncomplicated (11) DVT prophylaxis: Start date: 04/16/21 Start time: 17:02 Status: Acute Assessment and plan: Enoxaparin, initally concern for hemorrhagic renal cysts. u/s r/o revealing no obvious renal masses or hydronephrosis, small single cysts, no evidence of bleeding. NO cva tenderness (12) Discharge planning issues: Start date: 04/16/21 Start time: 17:02 Status: Acute Assessment and plan: Home when medically ready Subjective Subjective Patient reports: still having pain and vomiting Interval history since last seen: Patient continues to have severe pain to abd wrapping around to back with vomiting. Will continue to be NPO. She requested ativan given 0.5 mg. Denies SOB, N/V/D. Exam Narrative Exam Narrative: Const: sitting up in bed, disheveled, chronically ill looking, with tremors, AAOx3, vomiting, making NPO HENMT/EYES: PERRLA, EOMI. No JVD, no lymphedema Chest: normal no scars or rashes Resp: clear diminished. Cardio: RRR, no murmur GI: vomiting, tender to palpation to Right upper quad, and mid abd wrapping around to back,obese contour Back: normal spinal curvature, no CVA tenderness Skin: multiple brusies in multiple areas Neuro: AAOx3 Extremity: no edema, clubbing or cyanosis Objective Last Vital Signs Temp 37.2 C 04/16/21 11:30 Pulse 81 04/16/21 11:30 Resp 19 04/16/21 11:30 BP 159/85 H 04/16/21 11:30 Pulse Ox 99 04/16/21 11:30 Laboratory Results - last 24 hr 04/16/21 04/16/21 04/16/21 06:40 07:33 12:10 WBC 5.47 RBC 3.26 L Hgb 11.2 Hct 34.4 L MCV 105.5 H MCH 34.4 H MCHC 32.6 RDW 13.7 Plt Count MPV 8.8 Immature Gran % 0.7 Neutrophils % 81.4 Lymphocytes % 8.4 Monocytes % 9.3 Eosinophils % 0.0 Basophils % 0.2 Nucleated RBC % 0 Absolute Neutrophils 4.45 Absolute Lymphocytes 0.46 L Absolute Monocytes 0.51 Absolute Eosinophils 0.00 Absolute Basophils 0.01 RBC Morphology See Below Macrocytosis 2+ Sodium 146 H Potassium 2.3 L* D 3.1 L Chloride 104 Carbon Dioxide 16.5 L Anion Gap 25.5 H BUN 11 Creatinine 1.0 Estimated GFR/1.73 m2 54.20 Glucose 119 H D Calcium 9.0 Magnesium 1.4 L Total Bilirubin 2.5 H AST 107 H ALT 57 Alkaline Phosphatase 112 Total Protein 6.1 L Albumin 3.3 L
[2021-04-16] MEDS: hydrOXYzine HCL 25 MG TAB PO (20:16)
[2021-04-17] VITALS (10 sets, daily range): BP systolic 135–175; BP diastolic 66–90; PULSE 76–120; RESP 19–20; TEMP 36.2–37.2; O2SAT 96–99
[2021-04-17] MEDS: Refresh PLUS Eye Drops 0.4ml OU ×4 (00:41→20:30)
[2021-04-17 07:34] LABS: Abs Immature Grans 0.05 10^3/uL (0.0-0.06); Absolute Monocyte Count 0.37 10^3/uL (0.1-0.8); Absolute Neutrophil Count 3.69 10^3/uL (1.2-6.7); HCT 32.6 % (36.0-46.0); HGB 10.8 g/dL (11.2-15.7); Immature Grans % 1.1; Lymphocytes % 8.9; MCH 33.3 pg (27.0-33.0); MCHC 33.1 % (32.0-36.0); MCV 100.6 fL (80-95); MPV 11.1 fL (8.0-11.0); Monocytes % 8.2; Neutrophils % 81.8; Nucleated RBC 0 %; RBC 3.24 10^6/uL (3.93-5.22); RDW 13.4 % (11.7-14.6); RDW-SD 50.4 fL; WBC 4.51 10^3/uL (4.4-10.8)
[2021-04-17 07:44] LABS: ALT 56 U/L (14-59); AST 81 U/L (15-37); Albumin 3.4 g/dL (3.4-5.0); Alkaline Phosphatase 108 U/L (46-116); Anion Gap 10.8 mmol/L (3-11); BUN 7 mg/dL (7-18); Bilirubin, Total 2.4 mg/dL (0.2-1.0); CO2 28.2 mmol/L (21.0-32.0); CREATININE 0.8 mg/dL (0.55-1.02); Calcium 9.5 mg/dL (8.5-10.1); Chloride 106 mmol/L (98-107); Glucose 143 mg/dL (74-106); Magnesium 1.8 mg/dL (1.8-2.4); Potassium 3.2 mmol/L (3.5-5.1); Sodium 145 mmol/L (136-145); Total Protein 6.4 g/dL (6.4-8.2)
[2021-04-17 08:11] LABS: Platelet Count 59 10^3/uL (130-400)
[2021-04-17 08:12] LABS: Diff Comment Diff Reviewed; RBC Morphology Normal
[2021-04-17] MEDS: FLUoxetine 10 MG TAB PO (08:33)
[2021-04-17] MEDS: Thiamine 100 MG TAB PO (08:33)
[2021-04-17] MEDS: Enoxaparin 40 MG/0.4 ML SYR SC (08:33)
[2021-04-17] MEDS: Metoprolol 50 MG TAB PO ×2 (08:34→20:31)
[2021-04-17] MEDS: Folic Acid 1 MG TAB PO (08:34)
[2021-04-17] MEDS: Magnesium Oxide 400 MG TAB 800 MG PO (08:34)
[2021-04-17] MEDS: Docusate Sodium 100 MG CAP PO ×3 (08:34→20:31)
[2021-04-17] MEDS: Multivitamin TAB 1 TAB PO (08:34)
[2021-04-17] MEDS: amLODIPine 5 MG TAB PO (08:34)
[2021-04-17] MEDS: Naltrexone 50 MG TAB PO (08:34)
--- NOTE | 2021-04-17 09:42 | W.ANESVAS ---
Midline Placement Date Performed: 04/17/21 Procedure Time: 09:20 Requesting Provider: Gwyn Blake Procedure Location: Med/Surg Sedation Given (Indicate Dose Given): No Sedation given Patient Mental Status: Awake Sterility: Hand Hygiene, Surgical Cap, Surgical Mask, Sterile Gloves and Chlorhexidine Laterality: Right Insertion Site: Basilic Midline Device: PowerGlide Pro 20G Catheter Length: 10 cm Midline Procedure Procedure: 1% Lidocaine to skin and subcutaneous tissue with 25g needle, Vessel accessed with needle, Vessel accessed with catheter over needle, Guidewire placed with ease, Catheter placed without resistance and Guidewire removed Dressing: Tegaderm Applied Blood Return: Present Flushes: Easily Ultrasound: Sterile probe cover and gel used Ultrasound Image Saved?: Yes Number of Attempts (See previous attempts in note section): 1 Procedure Tolerated: No Complications and Patient tolerated well Procedure Outcome: Successful Procedure Comment:: Pt. states she is normally very difficult to start IV. Multiple PIV attempts with eventual placement in foot. This IV stopped working. I was asked to get vascular access. Performed By: Desmond
[2021-04-17] MEDS: Pantoprazole 40 MG VIAL IVP (09:55)
[2021-04-17] MEDS: Normal Saline Flush 10 ML SYR IVP (09:56)
--- NOTE | 2021-04-17 10:36 | W.PM.PROGNOT ---
Date of Service Date of service: 04/17/21 Time of Service: 10:36 Assessment and Plan Assessment and plan (1) Pancreatitis: Status: Chronic Assessment and plan: will slowly advance with sips and chips if tolerated continue Potassium supplementation and IV fluids till taking good po Monitor labs, Creon when she starts to eat as this is now chronic MVI, folic acid and thiamine Qualifiers: Acute pancreatitis complication: no infection or necrosis Chronicity: acute Pancreatitis type: alcohol induced Qualified Code(s): K85.20 - Alcohol induced acute pancreatitis without necrosis or infection (2) Vomiting: Status: Acute Assessment and plan: Due to pancreatitis, sips and chips, hydration She can have clears when she is no longer vomiting. Qualifiers: Nausea presence: with nausea Vomiting Intractability: non-intractable Vomiting type: unspecified Qualified Code(s): R11.2 - Nausea with vomiting, unspecified (3) Dehydration: Status: Acute Assessment and plan: From vomiting as above (4) Alcohol abuse: Status: Chronic Assessment and plan: as above no interest in cessation (5) Iron deficiency anemia: Status: Chronic Assessment and plan: Due to chronic alcohol use as above, monitor labs Qualifiers: Iron deficiency anemia type: inadequate dietary iron intake Qualified Code(s): D50.8 - Other iron deficiency anemias (6) Transaminitis: Status: Acute Assessment and plan: Monitor liver enzymes IVF hydration continue to monitor (7) Ambulatory dysfunction: Status: Chronic Assessment and plan: due to alcohol with rib fracture PT consulted (8) Frequent falls: Status: Chronic Assessment and plan: as above (9) Presacral mass: Status: Chronic Assessment and plan: as above patient is aware and does not want further work up (10) Alcohol intoxication: Status: Chronic Assessment and plan: Chronic alcohol dependence no interest in quitting alcohol. Multiple falls due to this including rib fractures. As above Qualifiers: Complication of substance-induced condition: uncomplicated Qualified Code(s): F10.920 - Alcohol use, unspecified with intoxication, uncomplicated (11) DVT prophylaxis: Status: Acute Assessment and plan: Enoxaparin on hold in setting on thrombocytopenia (12) Discharge planning issues: Status: Acute Assessment and plan: Home when medically ready discussed with Dr Blake Subjective Subjective Interval history since last seen: anxious Exam Narrative Exam Narrative: Const: sitting up in bed, disheveled, chronically ill looking, with tremors, AAOx3, vomiting, making NPO HENMT/EYES: PERRLA, EOMI. No JVD, no lymphedema Chest: normal no scars or rashes Resp: clear diminished. Cardio: RRR, no murmur GI: vomiting, tender to palpation to Right upper quad, and mid abd wrapping around to back,obese contour Back: normal spinal curvature, no CVA tenderness Skin: multiple brusies in multiple areas Neuro: AAOx3 Extremity: no edema, clubbing or cyanosis Objective Last Vital Signs Temp 37 C 04/17/21 07:59 Pulse 120 H 04/17/21 07:59 Resp 20 04/17/21 07:59 BP 135/77 04/17/21 07:59 Pulse Ox 97 04/17/21 07:59 Laboratory Results - last 24 hr 04/16/21 04/17/21 04/17/21 12:10 06:35 06:35 WBC 4.51 RBC 3.24 L Hgb 10.8 L Hct 32.6 L MCV 100.6 H D MCH 33.3 H MCHC 33.1 RDW 13.4 Plt Count 59 L MPV 11.1 H Immature Gran % 1.1 Neutrophils % 81.8 Lymphocytes % 8.9 Monocytes % 8.2 Eosinophils % 0.0 Basophils % 0.0 Nucleated RBC % 0 Absolute Neutrophils 3.69 Absolute Lymphocytes 0.40 L Absolute Monocytes 0.37 Absolute Eosinophils 0.00 Absolute Basophils 0.00 RBC Morphology Normal Sodium 145 Potassium 3.1 L 3.2 L Chloride 106 Carbon Dioxide 28.2 Anion Gap 10.8 BUN 7 Creatinine 0.8 Estimated GFR/1.73 m2 >= 60.00 Glucose 143 H Calcium 9.5 Magnesium 1.8 Total Bilirubin 2.4 H AST 81 H ALT 56 Alkaline Phosphatase 108 Total Protein 6.4 Albumin 3.4
--- NOTE | 2021-04-17 10:37 | NUR.NOTE ---
Nursing Note: On 04/16, [employer] request nurse to come to room to assess patient's butt. this RN enters room and notes a stage 2 pressure ulceration to pt's left buttock. area appears some what like a skin tear but also as though the area unroofed as the skin was still present and beginning to roll. [employer] cleansed area and placed orange barrier cream to the perianal region. primary RN, Owen Santana informed of stage 2 by this RN.
[2021-04-17] MEDS: LORazepam 2 MG/ML VIAL 0.5 MG IVP (10:58)
--- NOTE | 2021-04-17 11:39 | PTTR_ITS ---
Date of service: 04/17/21 Time of Service: 11:39 PT Notes Visit Reasons: Acute Pancreatitis,Dehydration,Intractable Vomitin Physical Therapy Inpatient Treatment Note Date: 04/17/2021 Referring Doctor: Pat Navarro NP PT Orders: PT CONSULT: Eval/Treat. Precautions: Standard. Falls. Subjective: Agreeable to getting out of bed and ambulating this morning. Thinks that her [place] cats are with her in her room. Complained of being dizzy midway through walking needing seated rest. Objective: General Observation: Telemetry in place. IV access through R brachium. Red- tinged urine draining through urinary tube and to bag. Mental Status: Agreeable and able to follow instructions. Pain: 5-6/10 general body ache Bed Mobility/Transfers: Supine to sit minimal assist with HOB at 30 degrees Sit to stand contact-guard assist Stand to sit contact-guard assist Bed to chair contact-guard assist Gait: Patient exhibited reciprocal gait for 80 feet + 100 feet requiring contact-guard assist from PT with wheelchair follow. Complained of dizziness at 80 feet. BP at 128/79 mmHg, saturating at 91% on room air, and HR at 84 bpm. Decreased violeta. Decreased step length and height. Did not complain of being nauseous. Mild SOB. Balance: Static Sitting: Normal Dynamic Sitting: Normal Static Standing: Fair Dynamic Standing: Fair Assessment: Patient demonstrates generalized weakness, functional mobility decline requiring the need for front wheeled walker, difficulty with walking with walking, impairment with balance, and increased fall risk resulting from current diagnoses. She will benefit from continued PT services to address impairments and functional limitations listed below. DISCHARGE RECOMMENDATIONS: Patient will benefit from shelter facility placement for continued skilled physical therapy services in order to progress mobility level, strength, and balance in preparation for a safe discharge to home. TREATMENT CODE/TIME: 87220 x 39 minutes beginning at 11:39 AM. Thank you for the opportunity to participate in the care of this patient.
[2021-04-17] MEDS: Potassium Chloride 20 MEQ TABCR PO ×2 (14:03→20:31)
--- NOTE | 2021-04-17 14:17 | NT_ITS ---
PT Notes Visit Reasons: Acute Pancreatitis,Dehydration,Intractable Vomitin 04/17/2021 Pt refuses PM PT. Pt continues to be very confused. Odette Saul PTA Clinic location: [facility] [place], [place]
--- NOTE | 2021-04-17 14:40 | PHA.REVIEW ---
Pharmacy Admission Review - Admission Clinical Review (Last Updated 04/17/21 @ 09:46 by Jg Logan CRNA) Dehydration (Acute) Vomiting (Acute) Transaminitis (Acute) DVT prophylaxis (Acute) Discharge planning issues (Acute) Penicillins Allergy (Mild, Verified 04/15/21 07:04) Rash ramipril Allergy (Unknown, Verified 04/15/21 07:04) ITCHING meperidine [From Demerol] Adverse Reaction (Severe, Verified 04/15/21 07:04) Nausea bupropion Adverse Reaction (Mild, Verified 04/15/21 07:04) GI upset AMBER Inhibitors Adverse Reaction (Unknown, Verified 04/15/21 07:04) COUGH alendronate sodium Adverse Reaction (Unknown, Verified 04/15/21 07:04) GI Distress clarithromycin Adverse Reaction (Unknown, Verified 04/15/21 07:04) intolerant paroxetine Adverse Reaction (Unknown, Verified 04/15/21 07:04) Diarrhea Resuscitation Status DNR/DNI Height 5 ft 1 in Weight 70.76 kg - Renal Dosing Renal Dosing: BUN 7 mg/dL (7-18) 04/17/21 06:35 Creatinine 0.8 mg/dL (0.55-1.02) 04/17/21 06:35 Medications needing adjustments: Reviewed (Crcl ~46.55 mL/min current meds okay) - Anticoagulation Anticoagulation: Hgb 10.8 g/dL (11.2-15.7) L 04/17/21 06:35 Hct 32.6 % (36.0-46.0) L 04/17/21 06:35 Plt Count 59 10^3/uL (130-400) L 04/17/21 06:35 Creatinine 0.8 mg/dL (0.55-1.02) 04/17/21 06:35 DVT Prophylaxis: Intervened Medications: Enoxaparin (plts dropped, mentioned to provider and enoxaparin put on hold) Therapeutic Anticoagulation: N/A - Opiate Usage Evaluate Pain Scale/Pains Meds: N/A - Relevant Labs Sodium 145 mmol/L (136-145) 04/17/21 06:35 Potassium 3.2 mmol/L (3.5-5.1) L 04/17/21 06:35 Chloride 106 mmol/L (98-107) 04/17/21 06:35 Magnesium 1.8 mg/dL (1.8-2.4) 04/17/21 06:35 Electrolytes, C-Reactive P, ESR: Reviewed (K+ replacement ordered) - DM Control DM Control: Glucose 143 mg/dL (74-106) H 04/17/21 06:35 Insulin Dosing: N/A (BG has been elevated some so far this admission, no DM noted in medical history. Previous A1c 5.0 on 05/16/20.) - Heart Failure/NV EF%, AMBER's, B-Blockers, Diuretics: N/A - BP Control BP Control: Blood Pressure 156/66 Blood Pressure 135/77 Blood Pressure 138/84 If elevated: Reviewed (BP has been elevated so far this admission, currently has metoprolol ordered.) - Qtc Review If Elevated: Reviewed (QTc 474 on admission has fluoxetine and hydroxyzine ordered in addition to low K+) - IV to PO Switch IV Medications: Reviewed - Home Meds Home Med List reviewed: Intervened (Most of the home meds listed in [employer] had not been picked up since at least October of this year and it looked like there might have been some changes to others. I talked to the provider about this and both the current meds ordered and the home med list were adjusted. Multiple anticholinergic meds.) Relevent Home Meds Not ordered & why?: ondansetron (PRN, has other antiemetics ordered) - Current meds Current Medication Order Review: Intervened (Talked to provider Tuesday about creon and holding it until the pt is no longer NPO.) - Comments Comments/Follow Ups: Watch BP, BG, K+, plts, SCr, labs and for med changes (IV to PO, avoid QT prolonging meds, possible renal dose adjusments, possible resumption of meds currently on hold).
--- NOTE | 2021-04-17 17:26 | CMPROGNOTE_ITS ---
- If Service Date Differs Date of service: 04/17/21 Time of Service: 17:26 Care Management Progress Note S/O: Leticia was sitting up in her chair when CM met with her. Per her RN, she removed her IV and ochoa catheter herself last night. She continues to be confused and has difficulty finishing her thoughts in conversation. Per report, she was given ativan today, since she scored 6 on CIWA. She remains NPO, which she is upset about, as she feels hungry, but she has also had nausea and vomiting, per report. Her diet will be advanced slowly, as tolerated. CM will continue to follow. A: Leticia is a 75 year old female admitted to [facility] on 04/15/21 for acute pancreatitis. P: Leticia will likely be discharged home with a resumption of services. She will follow up with her community providers and plan of care. Leticia will transport via [facility]. CM will continue to support Leticia and her discharge planning needs.
[2021-04-18] VITALS (7 sets, daily range): BP systolic 153–186; BP diastolic 84–120; PULSE 84–137; RESP 16–20; TEMP 36.3–37.2; O2SAT 97–100
[2021-04-18] MEDS: LORazepam 2 MG/ML VIAL 0.5 MG IVP (03:01)
[2021-04-18] MEDS: Normal Saline Flush 10 ML SYR IVP ×2 (03:02→08:51)
[2021-04-18 07:43] LABS: Abs Immature Grans 0.02 10^3/uL (0.0-0.06); Absolute Lymphocyte Count 0.62 10^3/uL (1.2-3.4); Absolute Monocyte Count 0.22 10^3/uL (0.1-0.8); Absolute Neutrophil Count 1.39 10^3/uL (1.2-6.7); HCT 29.8 % (36.0-46.0); HGB 9.9 g/dL (11.2-15.7); Immature Grans % 0.9; Lymphocytes % 27.6; MCHC 33.2 % (32.0-36.0); MCV 102.4 fL (80-95); MPV 10.4 fL (8.0-11.0); Monocytes % 9.8; Neutrophils % 61.7; Nucleated RBC 0 %; RBC 2.91 10^6/uL (3.93-5.22); RDW 13.7 % (11.7-14.6); RDW-SD 51.5 fL; WBC 2.25 10^3/uL (4.4-10.8)
[2021-04-18 07:54] LABS: Anion Gap 4.9 mmol/L (3-11); BUN 6 mg/dL (7-18); CO2 30.1 mmol/L (21.0-32.0); CREATININE 0.7 mg/dL (0.55-1.02); Calcium 8.8 mg/dL (8.5-10.1); Chloride 106 mmol/L (98-107); Glucose 150 mg/dL (74-106); Potassium 3.3 mmol/L (3.5-5.1); Sodium 141 mmol/L (136-145)
[2021-04-18 08:09] LABS: Platelet Count 61 10^3/uL (130-400)
[2021-04-18 08:10] LABS: Diff Comment PLT Morph Reviewed; RBC Morphology Normal
[2021-04-18] MEDS: FLUoxetine 10 MG TAB PO (08:47)
[2021-04-18] MEDS: Magnesium Oxide 400 MG TAB 800 MG PO (08:47)
[2021-04-18] MEDS: Naltrexone 50 MG TAB PO (08:47)
[2021-04-18] MEDS: Multivitamin TAB 1 TAB PO (08:49)
[2021-04-18] MEDS: Refresh PLUS Eye Drops 0.4ml OU ×3 (08:49→20:22)
[2021-04-18] MEDS: Docusate Sodium 100 MG CAP PO ×2 (08:50→14:37)
[2021-04-18] MEDS: Thiamine 100 MG TAB PO (08:50)
[2021-04-18] MEDS: Pantoprazole 40 MG VIAL IVP (08:50)
[2021-04-18] MEDS: Potassium Chloride 20 MEQ TABCR PO ×3 (08:50→20:23)
[2021-04-18] MEDS: Metoprolol 50 MG TAB PO ×2 (08:50→20:24)
[2021-04-18] MEDS: amLODIPine 5 MG TAB PO (08:50)
[2021-04-18] MEDS: Folic Acid 1 MG TAB PO (08:50)
[2021-04-18 09:13] LABS: Magnesium 1.6 mg/dL (1.8-2.4)
--- NOTE | 2021-04-18 10:59 | PT.INTREAT ---
PT Notes Visit Reasons: Acute Pancreatitis,Dehydration,Intractable Vomitin Inpatient Physical Therapy Treatment Note [facility] Date: 04/18/21 SUBJECTIVE: Pt reports that she does not feel well today. OBJECTIVE: Supine-sit: SBA Sit-supine: [] Sit-stand: CGA Stand-sit: CGA GAIT Assistive Device: FWW Weight bearing:Full] Assist: CGA Distance: standing endurance and marching in place to F approx 2 min. THEREX: Pt completed min UE strengthening ther ex as per flow sheet. Pt was very nauseous during the session and did spit up a few times. Pt was not able to tolerate much today due to how she was feeling. ASSESSMENT: Pt was not feeling well today. PLAN: Cont as per PT POC as per kevin. TREATMENT CODE/TIME: 9:05-9:30 (46) TA
[2021-04-18] MEDS: hydrOXYzine HCL 25 MG TAB PO ×2 (13:58→20:22)
--- NOTE | 2021-04-18 14:18 | W.PM.PROGNOT ---
Date of Service Date of service: 04/18/21 Time of Service: 14:19 Assessment and Plan Assessment and plan (1) Pancreatitis: Status: Chronic Assessment and plan: will slowly advance with sips and chips if tolerated continue Potassium supplementation and IV fluids till taking good po Monitor labs, Creon when she starts to eat as this is now chronic MVI, folic acid and thiamine Qualifiers: Acute pancreatitis complication: no infection or necrosis Chronicity: acute Pancreatitis type: alcohol induced Qualified Code(s): K85.20 - Alcohol induced acute pancreatitis without necrosis or infection (2) Vomiting: Status: Acute Assessment and plan: Due to pancreatitis, sips and chips, hydration She can have clears when she is no longer vomiting. Qualifiers: Nausea presence: with nausea Vomiting Intractability: non-intractable Vomiting type: unspecified Qualified Code(s): R11.2 - Nausea with vomiting, unspecified (3) Dehydration: Status: Acute Assessment and plan: From vomiting as above (4) Alcohol abuse: Status: Chronic Assessment and plan: as above no interest in cessation (5) Iron deficiency anemia: Status: Chronic Assessment and plan: Due to chronic alcohol use as above, monitor labs Qualifiers: Iron deficiency anemia type: inadequate dietary iron intake Qualified Code(s): D50.8 - Other iron deficiency anemias (6) Transaminitis: Status: Acute Assessment and plan: Monitor liver enzymes IVF hydration continue to monitor (7) Ambulatory dysfunction: Status: Chronic Assessment and plan: due to alcohol with rib fracture PT consulted (8) Frequent falls: Status: Chronic Assessment and plan: as above (9) Presacral mass: Status: Chronic Assessment and plan: as above patient is aware and does not want further work up (10) Alcohol intoxication: Status: Chronic Assessment and plan: Chronic alcohol dependence no interest in quitting alcohol. Multiple falls due to this including rib fractures. As above Qualifiers: Complication of substance-induced condition: uncomplicated Qualified Code(s): F10.920 - Alcohol use, unspecified with intoxication, uncomplicated (11) DVT prophylaxis: Status: Acute Assessment and plan: Enoxaparin on hold in setting on thrombocytopenia (12) Discharge planning issues: Status: Acute Assessment and plan: Home when medically ready discussed with Dr Joy Subjective Subjective Patient reports: no new complaints, feels better, pain is less, tolerating liquids well and afebrile Exam Narrative Exam Narrative: Const: sitting up in bed, disheveled, chronically ill looking, with tremors, AAOx3, vomiting, making NPO HENMT/EYES: PERRLA, EOMI. No JVD, no lymphedema Chest: normal no scars or rashes Resp: clear diminished. Cardio: RRR, no murmur GI: vomiting, tender to palpation to Right upper quad, and mid abd wrapping around to back,obese contour Back: normal spinal curvature, no CVA tenderness Skin: multiple brusies in multiple areas Neuro: AAOx3 Extremity: no edema, clubbing or cyanosis Objective Last Vital Signs Temp 37.2 C 04/18/21 10:17 Pulse 137 H 04/18/21 10:17 Resp 20 04/18/21 10:17 BP 184/120 H 04/18/21 10:17 Pulse Ox 97 04/18/21 10:17 Laboratory Results - last 24 hr 04/18/21 04/18/21 04/18/21 06:50 06:50 06:50 WBC 2.25 L D RBC 2.91 L Hgb 9.9 L Hct 29.8 L MCV 102.4 H MCH 34.0 H MCHC 33.2 RDW 13.7 Plt Count 61 L MPV 10.4 Immature Gran % 0.9 Neutrophils % 61.7 Lymphocytes % 27.6 Monocytes % 9.8 Eosinophils % 0.0 Basophils % 0.0 Nucleated RBC % 0 Absolute Neutrophils 1.39 Absolute Lymphocytes 0.62 L Absolute Monocytes 0.22 Absolute Eosinophils 0.00 Absolute Basophils 0.00 RBC Morphology Normal Sodium 141 Potassium 3.3 L Chloride 106 Carbon Dioxide 30.1 Anion Gap 4.9 BUN 6 L Creatinine 0.7 Estimated GFR/1.73 m2 >= 60.00 Glucose 150 H Calcium 8.8 Magnesium 1.6 L
[2021-04-18] MEDS: Acetaminophen 325 MG TAB PO (20:23)
[2021-04-19] VITALS (8 sets, daily range): BP systolic 145–174; BP diastolic 83–97; PULSE 83–93; RESP 17–20; TEMP 36.7–37.2; O2SAT 98–99
[2021-04-19] MEDS: Acetaminophen 325 MG TAB PO (02:37)
[2021-04-19] MEDS: hydrOXYzine HCL 25 MG TAB PO ×3 (02:37→19:54)
[2021-04-19 07:02] LABS: HCT 28.3 % (36.0-46.0); HGB 9.5 g/dL (11.2-15.7); MCH 34.4 pg (27.0-33.0); MCHC 33.6 % (32.0-36.0); MCV 102.5 fL (80-95); MPV 11.3 fL (8.0-11.0); RBC 2.76 10^6/uL (3.93-5.22); RDW-SD 52.1 fL; WBC 2.49 10^3/uL (4.4-10.8)
[2021-04-19 07:13] LABS: Anion Gap 6.6 mmol/L (3-11); BUN 4 mg/dL (7-18); CO2 26.4 mmol/L (21.0-32.0); CREATININE 0.6 mg/dL (0.55-1.02); Calcium 8.7 mg/dL (8.5-10.1); Chloride 103 mmol/L (98-107); Glucose 144 mg/dL (74-106); Magnesium 1.4 mg/dL (1.8-2.4); Potassium 3.7 mmol/L (3.5-5.1); Sodium 136 mmol/L (136-145)
[2021-04-19 07:50] LABS: Platelet Count 77 10^3/uL (130-400)
[2021-04-19] MEDS: FLUoxetine 10 MG TAB PO (09:10)
[2021-04-19] MEDS: Refresh PLUS Eye Drops 0.4ml OU ×4 (09:10→19:54)
[2021-04-19] MEDS: Naltrexone 50 MG TAB PO (09:10)
[2021-04-19] MEDS: Pantoprazole 40 MG VIAL IVP (09:10)
[2021-04-19] MEDS: Folic Acid 1 MG TAB PO (09:11)
[2021-04-19] MEDS: Potassium Chloride 20 MEQ TABCR PO ×3 (09:11→19:54)
[2021-04-19] MEDS: amLODIPine 5 MG TAB PO (09:11)
[2021-04-19] MEDS: Thiamine 100 MG TAB PO (09:11)
[2021-04-19] MEDS: Magnesium Oxide 400 MG TAB 800 MG PO (09:11)
[2021-04-19] MEDS: Metoprolol 50 MG TAB PO ×2 (09:11→19:54)
[2021-04-19] MEDS: Docusate Sodium 100 MG CAP PO ×3 (09:12→19:54)
[2021-04-19] MEDS: Multivitamin TAB 1 TAB PO (09:12)
--- NOTE | 2021-04-19 10:58 | PT.INTREAT ---
PT Notes Visit Reasons: Acute Pancreatitis,Dehydration,Intractable Vomitin Inpatient Physical Therapy Treatment Note [facility] Date: 04/19/21 SUBJECTIVE: Pt reports that she is tired today. OBJECTIVE: GAIT Assistive Device: Pt refused to stand or walk today during her session. Pt was up in the chair during her session today by nursing. THEREX: Pt completed UE and LE strengthening ther ex as per flow sheet. ASSESSMENT: Pt was more alert and oriented today. Pt did not seem to be as nasauous today. Pt was still difficult to motivate today. PLAN: Cont as per PT POC. TREATMENT CODE/TIME: 9:10-9:30 (20) TP
--- NOTE | 2021-04-19 11:50 | W.PM.PROGNOT ---
Date of Service Date of service: 04/19/21 Time of Service: 11:50 Assessment and Plan Assessment and plan (1) Pancreatitis: Status: Chronic Assessment and plan: will slowly advance with sips and chips if tolerated continue Potassium supplementation and IV fluids till taking good po Monitor labs, Creon when she starts to eat as this is now chronic MVI, folic acid and thiamine Qualifiers: Acute pancreatitis complication: no infection or necrosis Chronicity: acute Pancreatitis type: alcohol induced Qualified Code(s): K85.20 - Alcohol induced acute pancreatitis without necrosis or infection (2) Vomiting: Status: Acute Assessment and plan: Due to pancreatitis, sips and chips, hydration She can have clears when she is no longer vomiting. Qualifiers: Nausea presence: with nausea Vomiting Intractability: non-intractable Vomiting type: unspecified Qualified Code(s): R11.2 - Nausea with vomiting, unspecified (3) Dehydration: Status: Acute Assessment and plan: From vomiting as above (4) Alcohol abuse: Status: Chronic Assessment and plan: as above no interest in cessation (5) Iron deficiency anemia: Status: Chronic Assessment and plan: Due to chronic alcohol use as above, monitor labs Qualifiers: Iron deficiency anemia type: inadequate dietary iron intake Qualified Code(s): D50.8 - Other iron deficiency anemias (6) Transaminitis: Status: Acute Assessment and plan: Monitor liver enzymes IVF hydration continue to monitor (7) Ambulatory dysfunction: Status: Chronic Assessment and plan: due to alcohol with rib fracture PT consulted (8) Frequent falls: Status: Chronic Assessment and plan: as above (9) Presacral mass: Status: Chronic Assessment and plan: as above patient is aware and does not want further work up (10) Alcohol intoxication: Status: Chronic Assessment and plan: Chronic alcohol dependence no interest in quitting alcohol. Multiple falls due to this including rib fractures. As above Qualifiers: Complication of substance-induced condition: uncomplicated Qualified Code(s): F10.920 - Alcohol use, unspecified with intoxication, uncomplicated (11) DVT prophylaxis: Status: Acute Assessment and plan: Enoxaparin on hold in setting on thrombocytopenia (12) Discharge planning issues: Status: Acute Assessment and plan: Home when medically ready discussed with Dr Joy Subjective Subjective Patient reports: still having pain (abdominal), diarrhea (foul) and afebrile; denies vomiting Exam Narrative Exam Narrative: Const: sitting up in bed, disheveled, chronically ill looking, with tremors, AAOx3, vomiting, making NPO HENMT/EYES: PERRLA, EOMI. No JVD, no lymphedema Chest: normal no scars or rashes Resp: clear diminished. Cardio: RRR, no murmur GI: vomiting, tender to palpation to Right upper quad, and mid abd wrapping around to back,obese contour Back: normal spinal curvature, no CVA tenderness Skin: multiple brusies in multiple areas Neuro: AAOx3 Extremity: no edema, clubbing or cyanosis Objective Last Vital Signs Temp 36.8 C 04/19/21 11:19 Pulse 91 H 04/19/21 11:19 Resp 18 04/19/21 11:19 BP 171/96 H 04/19/21 11:19 Pulse Ox 99 04/19/21 11:19 Laboratory Results - last 24 hr 04/19/21 04/19/21 06:20 06:20 WBC 2.49 L RBC 2.76 L Hgb 9.5 L Hct 28.3 L MCV 102.5 H MCH 34.4 H MCHC 33.6 RDW 14.0 Plt Count 77 L MPV 11.3 H Sodium 136 Potassium 3.7 Chloride 103 Carbon Dioxide 26.4 Anion Gap 6.6 BUN 4 L Creatinine 0.6 Estimated GFR/1.73 m2 >= 60.00 Glucose 144 H Calcium 8.7 Magnesium 1.4 L
[2021-04-19] MEDS: MAGNESIUM SULFATE 4 GM/100 ML BAG IVPB (17:18)
[2021-04-19] MEDS: Normal Saline Flush 10 ML SYR IVP (19:55)
[2021-04-19 22:05] LABS: C Diff PCR Positive (Negative)
[2021-04-20] VITALS (10 sets, daily range): BP systolic 142–182; BP diastolic 82–94; PULSE 69–98; RESP 16–22; TEMP 35–36.9; O2SAT 97–100
[2021-04-20] MEDS: metroNIDAZOLE 500 MG/100 ML BAG 100 MG IVPB ×2 (00:30→08:33)
[2021-04-20] MEDS: Refresh PLUS Eye Drops 0.4ml OU ×5 (00:30→19:57)
[2021-04-20] MEDS: Acetaminophen 325 MG TAB PO ×2 (00:38→20:15)
[2021-04-20 07:07] LABS: Abs Immature Grans 0.03 10^3/uL (0.0-0.06); Absolute Basophil Count 0.01 10^3/uL (0.0-0.2); Absolute Lymphocyte Count 0.55 10^3/uL (1.2-3.4); Absolute Monocyte Count 0.39 10^3/uL (0.1-0.8); Basophils % 0.4; HCT 28.8 % (36.0-46.0); HGB 9.6 g/dL (11.2-15.7); Immature Grans % 1.2; Lymphocytes % 21.3; MCH 34.7 pg (27.0-33.0); MCHC 33.3 % (32.0-36.0); MPV 10.8 fL (8.0-11.0); Monocytes % 15.1; Nucleated RBC 0 %; Platelet Count 112 10^3/uL (130-400); RBC 2.77 10^6/uL (3.93-5.22); RDW 13.6 % (11.7-14.6); RDW-SD 51.8 fL; WBC 2.58 10^3/uL (4.4-10.8)
[2021-04-20 07:50] LABS: Anion Gap 7.4 mmol/L (3-11); BUN 6 mg/dL (7-18); CO2 25.6 mmol/L (21.0-32.0); CREATININE 0.7 mg/dL (0.55-1.02); Calcium 8.4 mg/dL (8.5-10.1); Chloride 103 mmol/L (98-107); Glucose 153 mg/dL (74-106); Lipase 566 U/L (73-393); Magnesium 2.4 mg/dL (1.8-2.4); Sodium 136 mmol/L (136-145)
[2021-04-20] MEDS: Metoprolol 50 MG TAB PO ×2 (08:34→19:58)
[2021-04-20] MEDS: amLODIPine 5 MG TAB PO (08:34)
[2021-04-20] MEDS: Thiamine 100 MG TAB PO (08:34)
[2021-04-20] MEDS: FLUoxetine 10 MG TAB PO (08:34)
[2021-04-20] MEDS: Naltrexone 50 MG TAB PO (08:34)
[2021-04-20] MEDS: Folic Acid 1 MG TAB PO (08:34)
[2021-04-20] MEDS: Multivitamin TAB 1 TAB PO (08:34)
[2021-04-20] MEDS: Famotidine 20 MG TAB PO (08:34)
[2021-04-20] MEDS: Creon, Lipase 6,000 CAPCR 1 CAP PO ×2 (12:00→16:53)
[2021-04-20] MEDS: Vancomycin 125 MG CAP PO ×2 (12:00→18:56)
--- NOTE | 2021-04-20 13:13 | PDOC.CMPRO ---
- If Service Date Differs Date of service: 04/20/21 Time of Service: 13:13 Care Management Progress Note S/O: Leticia was lying in bed when CM met with her. She stated that she doesn't feel ready to return home at this point, but she is feeling better than when she arrived. Per provider, she was changed to oral medication today and is tolerating her diet. If she continues to improve, she may be discharge ready tomorrow. CM will continue to follow. A: Leticia is a 75 year old female admitted to [facility] on 04/15/21 for acute pancreatitis. P: Leticia will likely be discharged home with a resumption of services. She will follow up with her community providers and plan of care. Leticia will transport via [facility]. CM will continue to support Leticia and her discharge planning needs.
--- NOTE | 2021-04-20 14:02 | W.PALLCONSUL ---
Date of service: 04/20/21 Time of Service: 07:02 History of Present Illness History of Present Illness Chief Complaint: weakness, diarrhea Narrative: From H and P: History of Present Illness History of Present Illness Chief Complaint: Pancreatitis, dehydration Narrative: 75 y.o female with mulitple medical problems including chronic alcohol intoxication, alcoholic gastritis, hypertension, high cholesterol, chronic transaminitis, presented to ED for vomiting was hydrated and up for admission but refused and went home, 16 hours later she returned due to hyperemesis. She was unable to take her medication due to vomiting. She drinks alcohol regularly. Labs in the ED remarkable for lipase of 1482, elevated liver enzymes, 2.9 lactate, anion gap of 3.9. She was given fluid boluses in the ED. She is Hypertensive with tachycardia. CT abd pelvis revealing a lobulated noncalcified mass in the presacral region measuring approximately 5 x 3 x 4.3 cm, similar in size to CT scan of 02/18/2021 and not associated with adjacent bone destruction of the sacrum. No parapelvic masses nor adenopathy nor ascites. Multiple cysts and probable hemorrhagic cysts in the right kidney, somewhat difficult to assess without IV contrast. Multiple bilateral healed rib fractures again noted. Subtle streaking around the pancreas which may be exaggerated by motion artifact. Correlation any clinical signs of pancreatitis recommended. Hepatic steatosis noted. No focal hepatic lesions identified. She has been asked to be admitted to [facility] for further management. Leticia is being admitted to m/s with telemetry with IV lopressor as needed for HR and BP. Banana bag along with creon for repeat pancreatitis. Will trial clears. If she is vomiting or in pain will change to NPO. Renal u/s to assess for hemorrhagic cysts in the right kidney. Zofran for nausea, PT for weakness. Monitor daily labs. Will hold any anticoagulation at this time due to possible renal hemorrhage use scd and teds. Interim hx: I saw Leticia in the morning in the afternoon. In the morning she states that she was feeling better. She had not yet had a bowel movement by evening she had. She said she was refusing the medication to help with her diarrhea. She did not feel that she needed it anymore. She is very weak and knows that she needs to get stronger in order to go home. She is hoping to go home soon. Is quite depressed at this time by her admission. Consults Consult date: 04/20/21 Requesting physician: Aydin Joy Assessment and Plan Assessment and plan (1) Vomiting: Status: Resolved Qualifiers: Vomiting type: unspecified Vomiting Intractability: non-intractable Nausea presence: with nausea Qualified Code(s): R11.2 - Nausea with vomiting, unspecified (2) Pancreatitis: Status: Chronic Qualifiers: Chronicity: acute Pancreatitis type: alcohol induced Acute pancreatitis complication: no infection or necrosis Qualified Code(s): K85.20 - Alcohol induced acute pancreatitis without necrosis or infection (3) Anemia: Status: Chronic (4) Depression: Status: Chronic (5) Ambulatory dysfunction: Status: Chronic (6) Palliative care patient: Status: Acute Assessment and plan: Leticia has had longstanding alcoholism. Unfortunately whenever she goes home is able to obtain alcohol and then has consequences of this. She knows she cannot go home at this time due to weakness. She does agree to go to a long term for short time to strengthen. Long-term placement would be the best for her as she is not able to drink and she does get better. In the past I have cared for her at the [facility] and she has done very well. She agrees to go to health and rehab today but perhaps not tomorrow Multiple interventions for her alcoholism have been tried. Unfortunately to date none have been successful. Her son does a great job in hiring people and trying to help him. Unfortunately again she continues to imbibe She was actually quite depressed today, more so than what I have seen on other occasions. I will ask the lay out and detail drafter to come in and visit her. I will continue to follow her, I wish she could be more successful in abstaining from alcohol C. difficile?continue with precautions. I did urge her to take the medication so that she can recover from this and also recover her strength. It sounds like at this time her diarrhea is slowing down. Review of Systems Narrative: She states that she is very weak. She has trouble standing. Diarrhea continues although she only had one episode per her report this day. She is nauseous and does have a emesis bag near her. She knows she has a urinary tract infection. She does get short of breath with minimal exertion. [facility] Medical History (Updated 04/21/21 @ 07:32 by Genoveva Young MD, [place]) Acute alcoholism Acute UTI Adjustment disorder with depressed mood AMBER (acute kidney injury) Alcohol abuse Alcohol intoxication Alcohol intoxication Alcoholic gastritis without bleeding Alcoholic ketosis Allergic rhinitis Anemia Back pain, chronic Blunt head trauma Blunt trauma of multiple sites of trunk Calcific tendinitis of left shoulder CAP (community acquired pneumonia) Cataract (11/07/15) Cervical radicular pain neck pain and DJD [facility] Cervical strain 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) pls refrain from alcohol Chronic alcoholism she will not stop drinking unless she checks with me, so that we can help her avert withdrawal I do not think she is capable on her own--she would need placement to achieve required goal of 3 months of sobriety Chronic diarrhea Closed displaced fracture of proximal phalanx of right index finger with routine healing (06/03/17) Closed right humeral fracture Contusion of left little finger Corneal ulcer, right (~08/23/18) 08/23/18; [facility]- Dehydration Depression Diarrhea Difficult intravenous access Multiple IV attempts, usually requires ultrasound placement. Discharge planning issues DVT prophylaxis Dystrophic nail Elev transaminase/LDH due to alcohol Epigastric abdominal pain Facial fracture due to fall Facial laceration Fall as cause of accidental injury at home as place of occurrence Fall at home Fracture of humerus, left, closed Genital herpes simplex recurrent gential; suppressive Valtrex GERD (gastroesophageal reflux disease) GI bleed (12/20/16) Head contusion Headache History of alcohol abuse Humerus fracture (09/12/19) Right Hyperlipidemia Hypertension Hypokalemia Hypokalemia Hypokalemia Hypomagnesemia Incidental lung nodule, greater than or equal to 8mm 1cm, spiculated, stable for many years, recommend f/u in 6 mo Intractable vomiting Leukopenia Macrocytosis (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 Multiple contusions Multiple fractures of ribs Multiple rib fractures 03/11/19 [facility] Nausea and vomiting in adult Non-cardiac chest pain (09/21/16) [facility] 09/21/16 NEGATIVE MP Osteoarthritis Osteopenia Palliative care patient (03/21/17) Pancreatitis, alcoholic, acute Peripheral edema Photophobia of right eye Pleural effusion on left 03/11/19 [facility] Pneumonia Presacral mass (~09/15/18) 09/15/18 [facility] Rash Rib pain on right side Right rib fracture Sacral mass Sciatica right, epidural injuections [facility] Suicidal ideation Tendinitis of left rotator cuff Tubular adenoma of colon (01/28/17) Urinary incontinence 01/24/13 urethral suspension and sling at [facility] (bladder suspension 1991) UTI (urinary tract infection) UTI (urinary tract infection) 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 Bladder repair. Ligation of fallopian tube Repair bladder injury, simple Family History Mother No problems noted. Father , DROWNED at age 50. No problems noted. Sister Personal history of malignant neoplasm MELANOMA Sister No problems noted. Grandfather Personal history of malignant neoplasm STOMACH Grandfather Personal history of malignant neoplasm PROSTATE Grandmother Heart disease IN Acute ill-defined cerebrovascular disease Grandmother Personal history of malignant neoplasm UTERINE Aunt , IN Heart disease IN Aunt , [place] Heart disease Brother No problems noted. Social History Smoking/Tobacco Use Status: Former Tobacco Use Quit Date: 08/05/20 Smoking risk assessment performed?: Yes Alcohol Intake: current Alcohol Intake frequency: 3 or more drinks per day Alcohol type: hard liquor Drug use: Never Substance use type: does not use Current gender identity: female Do you feel safe at home: Yes Do you feel safe in your relationship?: Yes Additional Social history: Pt has been binge drinking since 4am Exam Narrative Exam Narrative: She is lying in bed. She is cooperative and smiles. She also cries in the evening upset about her weakness and depression. She is slightly distant shuffled. She does have bruises in different places. Her heart is regular but there is a systolic murmur. Her lungs little air movement. Abdomen mildly tender. She does not have any lower extremity edema Results Last Vital Signs Temp 95.2 F L 04/20/21 11:07 Pulse 86 04/20/21 11:07 Resp 20 04/20/21 11:07 BP 142/82 H 04/20/21 11:07 Pulse Ox 97 04/20/21 11:07 Labs Result diagrams: 04/20/21 06:50 04/20/21 06:50 Labs: Laboratory Results - last 24 hr 04/19/21 04/20/21 04/20/21 20:20 06:50 06:50 WBC 2.58 L RBC 2.77 L Hgb 9.6 L Hct 28.8 L MCV 104.0 H MCH 34.7 H MCHC 33.3 RDW 13.6 Plt Count 112 L MPV 10.8 Immature Gran % 1.2 Neutrophils % 62.0 Lymphocytes % 21.3 Monocytes % 15.1 Eosinophils % 0.0 Basophils % 0.4 Nucleated RBC % 0 Absolute Neutrophils 1.60 Absolute Lymphocytes 0.55 L Absolute Monocytes 0.39 Absolute Eosinophils 0.00 Absolute Basophils 0.01 Sodium 136 Potassium 4.0 Chloride 103 Carbon Dioxide 25.6 Anion Gap 7.4 BUN 6 L Creatinine 0.7 Estimated GFR/1.73 m2 >= 60.00 Glucose 153 H Calcium 8.4 L Magnesium 2.4 Lipase 566 H Stl C.difficile Tox PCR Positive A Laboratory Tests 02/13/21 03/06/21 03/06/21 11:20 15:10 15:10 WBC Hgb 10.7 L MCV Plt Count Creatinine 0.7 Calcium AST 103 H Alkaline Phosphatase 127 H Lipase TSH 0.09 L Free T4 1.22 Urine Ketones Urine RBC Ethyl Alcohol 04/14/21 04/15/21 04/15/21 09:30 06:54 12:30 WBC Hgb MCV Plt Count Creatinine Calcium AST Alkaline Phosphatase Lipase TSH Free T4 Urine Ketones >=160 H Urine RBC 10-20 H Ethyl Alcohol 174.5 < 3.0 04/17/21 04/20/21 04/20/21 06:35 06:50 06:50 WBC 2.58 L Hgb MCV 104.0 H Plt Count 112 L Creatinine Calcium 8.4 L AST 81 H Alkaline Phosphatase Lipase 566 H TSH Free T4 Urine Ketones Urine RBC Ethyl Alcohol
--- NOTE | 2021-04-20 15:28 | PT.INTREAT ---
Date of service: 04/20/21 Time of Service: 11:25 PT Notes Visit Reasons: Acute Pancreatitis,Dehydration,Intractable Vomitin Inpatient Physical Therapy Treatment Note [facility] Date: 04/20/2021 PRECAUTIONS: Fall SUBJECTIVE: Letciia reports that she still does not feel well, although states that she was able to eat some solid food, and has not vomited today, only gagged, but reports that she gags on a regular basis. OBJECTIVE: Patient appears confused today, attempting to grab for lines and remote multiple times and repeating herself. PAIN: Patient complained everything hurts BED MOBILITY/TRANSFERS Supine-sit: I with HOB flat Sit-supine: I with HOB flat Sit-stand: SBA Stand-sit: SBA Bed-chair: SBA Chair-bed: SBA GAIT Assistive Device: FWW Weight bearing: Full Assist: SBA Distance: 15' x2 + 3 x20' Deviation: Back pain, increased fatigue, dizziness TOILETING: Patient toileted with SBA for transfers ASSESSMENT: Patient tolerated session with complaint of increased fatigue and global pain with activity. She continues to report dizziness with gait training and standing activities. PLAN: Continue with global conditioning for continued progression toward baseline level of function. TREATMENT CODE/TIME: 30 minutes; [id number] x2 (11:25)
--- NOTE | 2021-04-20 17:54 | W.PM.PROGNOT ---
Date of Service Date of service: 04/20/21 Time of Service: 17:55 Assessment and Plan Assessment and plan (1) Pancreatitis: Start date: 04/20/21 Start time: 18:04 Status: Chronic Assessment and plan: Improving pain, tolerating diet no vomiting creon added to diet. D/c IVF Continue vitamins. Possible discharge tomorrow Qualifiers: Chronicity: acute Pancreatitis type: alcohol induced Acute pancreatitis complication: no infection or necrosis Qualified Code(s): K85.20 - Alcohol induced acute pancreatitis without necrosis or infection (2) Vomiting: Start date: 04/20/21 Start time: 18:05 Status: Resolved Assessment and plan: was due to above Qualifiers: Vomiting type: unspecified Vomiting Intractability: non-intractable Nausea presence: with nausea Qualified Code(s): R11.2 - Nausea with vomiting, unspecified (3) Dehydration: Start date: 04/20/21 Start time: 18:06 Status: Resolved Assessment and plan: From vomiting as above (4) Alcohol abuse: Start date: 04/20/21 Start time: 18:06 Status: Chronic Assessment and plan: no intrest in cessation (5) Iron deficiency anemia: Start date: 04/20/21 Start time: 18:06 Status: Chronic Assessment and plan: Due to chronic alcohol use as above, monitor labs Qualifiers: Iron deficiency anemia type: inadequate dietary iron intake Qualified Code(s): D50.8 - Other iron deficiency anemias (6) Transaminitis: Start date: 04/20/21 Start time: 18:06 Status: Acute Assessment and plan: Liver enzymes improved IVF dcd now that patient tolerating diet and not vomiting continue to monitor (7) Ambulatory dysfunction: Start date: 04/20/21 Start time: 18:08 Status: Chronic Assessment and plan: due to alcohol with rib fracture PT consulted (8) Frequent falls: Start date: 04/20/21 Start time: 18:08 Status: Chronic Assessment and plan: as above (9) Presacral mass: Start date: 04/20/21 Start time: 18:08 Status: Chronic Assessment and plan: as above patient is aware and does not want further work up (10) Alcohol intoxication: Start date: 04/20/21 Start time: 18:08 Status: Chronic Assessment and plan: Chronic alcohol dependence no interest in quitting alcohol. Multiple falls due to this including rib fractures. As above Qualifiers: Complication of substance-induced condition: uncomplicated Qualified Code(s): F10.920 - Alcohol use, unspecified with intoxication, uncomplicated (11) DVT prophylaxis: Start date: 04/20/21 Start time: 18:08 Status: Acute Assessment and plan: Enoxaparin, initally concern for hemorrhagic renal cysts. u/s r/o revealing no obvious renal masses or hydronephrosis, small single cysts, no evidence of bleeding. NO cva tenderness (12) Discharge planning issues: Start date: 04/20/21 Start time: 18:08 Status: Acute Assessment and plan: Home when medically ready discussed with Dr. Joy Subjective Subjective Patient reports: feels better Interval history since last seen: Patient feeling better. Pain improved. Tolerating diet. No longer vomiting. She is ready for discharge tomorrow though she states she is considering H/R though she is always changing her mind. Will let CM know. She denies CP, SOB, N/V /D Exam Narrative Exam Narrative: Const: lying in bed, looking better though chronically ill looking, with tremors, AAOx3, now tolerating meals HENMT/EYES: PERRLA, EOMI. No JVD, no lymphedema Chest: normal no scars or rashes Resp: clear diminished. Cardio: RRR, no murmur GI: less pain to Right upper quad, ntour Back: normal spinal curvature, no CVA tenderness Skin: multiple brusies in multiple areas Neuro: AAOx3 Extremity: no edema, clubbing or cyanosis Objective Last Vital Signs Temp 36.9 C 04/20/21 15:52 Pulse 76 04/20/21 15:52 Resp 19 04/20/21 15:52 BP 161/83 H 04/20/21 15:52 Pulse Ox 97 04/20/21 15:52 Laboratory Results - last 24 hr 04/19/21 04/20/21 04/20/21 20:20 06:50 06:50 WBC 2.58 L RBC 2.77 L Hgb 9.6 L Hct 28.8 L MCV 104.0 H MCH 34.7 H MCHC 33.3 RDW 13.6 Plt Count 112 L MPV 10.8 Immature Gran % 1.2 Neutrophils % 62.0 Lymphocytes % 21.3 Monocytes % 15.1 Eosinophils % 0.0 Basophils % 0.4 Nucleated RBC % 0 Absolute Neutrophils 1.60 Absolute Lymphocytes 0.55 L Absolute Monocytes 0.39 Absolute Eosinophils 0.00 Absolute Basophils 0.01 Sodium 136 Potassium 4.0 Chloride 103 Carbon Dioxide 25.6 Anion Gap 7.4 BUN 6 L Creatinine 0.7 Estimated GFR/1.73 m2 >= 60.00 Glucose 153 H Calcium 8.4 L Magnesium 2.4 Lipase 566 H Stl C.difficile Tox PCR Positive A
--- NOTE | 2021-04-20 18:57 | NUR.NOTE ---
Nursing Note: Lopez catheter and Tele monitoring had been dc'd by Sandeep Navarro
[2021-04-20] MEDS: hydrOXYzine HCL 25 MG TAB PO (19:58)
[2021-04-20] MEDS: Docusate Sodium 100 MG CAP PO (19:58)
[2021-04-20] MEDS: Ondansetron 4 MG/2 ML VIAL IVP (20:15)
[2021-04-21] MEDS: Refresh PLUS Eye Drops 0.4ml OU ×4 (00:12→17:26)
[2021-04-21] MEDS: Vancomycin 125 MG CAP PO ×4 (00:12→17:15)
[2021-04-21] MEDS: Acetaminophen 325 MG TAB PO (00:12)
[2021-04-21 08:38] VITALS: BP 175/97; PULSE 88; RESP 16; TEMP 36.5; O2SAT 99
[2021-04-21] MEDS: Multivitamin TAB 1 TAB PO (09:01)
[2021-04-21] MEDS: Metoprolol 50 MG TAB PO ×2 (09:02→21:11)
[2021-04-21] MEDS: Naltrexone 50 MG TAB PO (09:02)
[2021-04-21] MEDS: amLODIPine 5 MG TAB PO (09:02)
[2021-04-21] MEDS: Famotidine 20 MG TAB PO (09:02)
[2021-04-21] MEDS: Docusate Sodium 100 MG CAP PO ×3 (09:02→21:10)
[2021-04-21] MEDS: Creon, Lipase 6,000 CAPCR 1 CAP PO ×3 (09:02→17:15)
[2021-04-21] MEDS: Folic Acid 1 MG TAB PO (09:02)
[2021-04-21] MEDS: Thiamine 100 MG TAB PO (09:02)
[2021-04-21] MEDS: FLUoxetine 10 MG TAB PO (09:03)
--- NOTE | 2021-04-21 12:15 | PGE_ITS ---
Date of Service Date of service: 04/21/21 Time of Service: 12:15 Assessment and Plan Assessment and plan (1) C. difficile colitis: Status: Acute Assessment and plan: responding to oral vancomycin, will need 7 days (2) Pancreatitis: Status: Chronic Assessment and plan: resolving and tolerating advancing diet. encourage no etoh at discharge Qualifiers: Acute pancreatitis complication: no infection or necrosis Chronicity: acute Pancreatitis type: alcohol induced Qualified Code(s): K85.20 - Alcohol induced acute pancreatitis without necrosis or infection (3) Alcohol abuse: Status: Chronic Assessment and plan: no interest in cessation (4) Iron deficiency anemia: Status: Chronic Assessment and plan: Due to chronic alcohol use as above, monitor labs Qualifiers: Iron deficiency anemia type: inadequate dietary iron intake Qualified Code(s): D50.8 - Other iron deficiency anemias (5) Transaminitis: Status: Acute Assessment and plan: Monitor liver enzymes IVF hydration continue to monitor (6) Ambulatory dysfunction: Status: Chronic Assessment and plan: due to alcohol with rib fracture PT consulted will resume services at discharge (7) Frequent falls: Status: Chronic Assessment and plan: as above (8) Presacral mass: Status: Chronic Assessment and plan: patient is aware and does not want further work up (9) DVT prophylaxis: Status: Acute Assessment and plan: Enoxaparin restarted, was held d/t thrombocytopenia w hich has resolved. (10) Discharge planning issues: Status: Acute Assessment and plan: plan for discharge to home tomorrow with resumption of home health services.\ case management following discussed with Dr Joy Subjective Subjective Patient reports: feels better, tolerating liquids well, tolerating a regular diet, voiding w/o difficulty and afebrile Interval history since last seen: 2 soft bowel movements overnight. Exam Narrative Exam Narrative: Const: sitting up in bed, disheveled, chronically ill looking, with tremors, AAOx3, vomiting, making NPO HENMT/EYES: PERRLA, EOMI. No JVD, no lymphedema Chest: normal no scars or rashes Resp: clear diminished. Cardio: RRR, no murmur GI: vomiting, tender to palpation to Right upper quad, and mid abd wrapping around to back,obese contour Back: normal spinal curvature, no CVA tenderness Skin: multiple brusies in multiple areas Neuro: AAOx3 Extremity: no edema, clubbing or cyanosis Objective Last Vital Signs Temp 36.5 C 04/21/21 08:38 Pulse 88 04/21/21 08:38 Resp 16 04/21/21 08:38 BP 175/97 H 04/21/21 08:38 Pulse Ox 99 04/21/21 08:38
[2021-04-21] MEDS: Mylanta Suspension 30 ML CUP PO (13:44)
--- NOTE | 2021-04-21 13:44 | NUR.NOTE ---
Nursing Note: patient c/o pressure chest pain, mid chest and and both lower sides. Charge nurse notified. Ron mittal
[2021-04-21] MEDS: Pantoprazole 40 MG VIAL IVP (13:52)
[2021-04-21] MEDS: Sucralfate 1 GM TAB PO ×2 (13:53→17:15)
--- NOTE | 2021-04-21 13:54 | PT.INTREAT ---
Date of service: 04/21/21 Time of Service: 11:00 PT Notes Visit Reasons: Acute Pancreatitis,Dehydration,Intractable Vomitin Inpatient Physical Therapy Treatment Note [facility] Date: 04/21/2021 PRECAUTIONS: Fall SUBJECTIVE: Leticia reports that she is not feeling better today. She reports that she would feel much safer if she could stay another night. OBJECTIVE: Patient refused afternoon PT session due to fatigue. PAIN: Patient c/o back pain following gait training BED MOBILITY/TRANSFERS Supine-sit: I Sit-supine: I Sit-stand: S Stand-sit: S Bed-chair: S Chair-bed: S GAIT Assistive Device: FWW Weight bearing: Full Assist: S Distance: 100' Deviation: Back pain, standing rest x3 TOILETING: Patient toileted with assist due to incontinence of urine ASSESSMENT: Patient tolerated a progression in gait distance with FWW support and supervision, requiring standing rest x3. She continues to complain of back pain following activity. PLAN: Continue with global conditioning for continued progression toward baseline level of function. TREATMENT CODE/TIME: 30 minutes; 17855 x2 (11:00)
--- NOTE | 2021-04-21 16:24 | PDOC.CMPRO ---
- If Service Date Differs Date of service: 04/21/21 Time of Service: 16:24 Care Management Progress Note S/O: Leticia was lying in bed when CM met with her. She stated that she does not feel ready for discharge at this time. Per report, the provider is awaiting sensitivities in order to determine the best course of antibiotics for her to return home on. She reported that she was waiting for someone to help her because she was wet and needed assistance changing. CM notified the help desk support specialist on M/S of this, as her RN was not available at the time. CM will continue to follow. A: Leticia is a 75 year old female admitted to [facility] on 04/15/21 for acute pancreatitis. P: Leticia will likely be discharged home with a resumption of services. She will follow up with her community providers and plan of care. Leticia will transport via [facility]. CM will continue to support Leticia and her discharge planning needs.
[2021-04-21 17:27] VITALS: BP 150/90; PULSE 85; RESP 16; TEMP 36.1; O2SAT 99
[2021-04-21] MEDS: hydrOXYzine HCL 25 MG TAB PO (21:11)
[2021-04-22 00:25] VITALS: BP 176/82; PULSE 74; RESP 18; TEMP 36.8; O2SAT 97
[2021-04-22] MEDS: Vancomycin 125 MG CAP PO ×4 (00:39→17:42)
[2021-04-22 07:37] VITALS: BP 188/82; PULSE 87; RESP 20; TEMP 37; O2SAT 97
[2021-04-22] MEDS: Multivitamin TAB 1 TAB PO (08:45)
[2021-04-22] MEDS: Thiamine 100 MG TAB PO (08:45)
[2021-04-22] MEDS: Refresh PLUS Eye Drops 0.4ml OU ×4 (08:45→19:34)
[2021-04-22] MEDS: Enoxaparin 40 MG/0.4 ML SYR SC (08:45)
[2021-04-22] MEDS: FLUoxetine 10 MG TAB PO (08:45)
[2021-04-22] MEDS: Creon, Lipase 6,000 CAPCR 1 CAP PO ×3 (08:45→16:43)
[2021-04-22] MEDS: Metoprolol 50 MG TAB PO ×2 (08:45→19:35)
[2021-04-22] MEDS: Naltrexone 50 MG TAB PO (08:45)
[2021-04-22] MEDS: amLODIPine 5 MG TAB PO (08:46)
[2021-04-22] MEDS: Famotidine 20 MG TAB PO (08:46)
[2021-04-22] MEDS: Folic Acid 1 MG TAB PO (08:46)
[2021-04-22] MEDS: Sucralfate 1 GM TAB PO ×4 (08:46→22:07)
--- NOTE | 2021-04-22 11:26 | W.PM.PROGNOT ---
Date of Service Date of service: 04/22/21 Time of Service: 11:27 Assessment and Plan Assessment and plan (1) C. difficile colitis: Status: Acute Assessment and plan: responding to oral vancomycin, will need 7 days (2) Pancreatitis: Status: Chronic Assessment and plan: resolving and tolerating advancing diet. encourage no etoh at discharge Qualifiers: Acute pancreatitis complication: no infection or necrosis Chronicity: acute Pancreatitis type: alcohol induced Qualified Code(s): K85.20 - Alcohol induced acute pancreatitis without necrosis or infection (3) Alcohol abuse: Status: Chronic Assessment and plan: no interest in cessation (4) Iron deficiency anemia: Status: Chronic Assessment and plan: Due to chronic alcohol use as above, monitor labs Qualifiers: Iron deficiency anemia type: inadequate dietary iron intake Qualified Code(s): D50.8 - Other iron deficiency anemias (5) Ambulatory dysfunction: Status: Chronic Assessment and plan: due to alcohol abuse PT consulted will resume HH services at discharge (6) Frequent falls: Status: Chronic Assessment and plan: as above (7) Presacral mass: Status: Chronic Assessment and plan: patient is aware and does not want further work up (8) DVT prophylaxis: Status: Acute Assessment and plan: Enoxaparin restarted, was held d/t thrombocytopenia which has resolved. (9) Discharge planning issues: Status: Acute Assessment and plan: plan for discharge to home tomorrow with resumption of home health services.\ case management following discussed with Dr Joy Subjective Subjective Patient reports: no new complaints, feels better, pain is less, tolerating liquids well, tolerating a regular diet and afebrile Exam Narrative Exam Narrative: Const: sitting up in bed, disheveled, chronically ill looking, with tremors, AAOx3, vomiting, making NPO HENMT/EYES: PERRLA, EOMI. No JVD, no lymphedema Chest: normal no scars or rashes Resp: clear diminished. Cardio: RRR, no murmur GI: vomiting, tender to palpation to Right upper quad, and mid abd wrapping around to back,obese contour Back: normal spinal curvature, no CVA tenderness Skin: multiple brusies in multiple areas Neuro: AAOx3 Extremity: no edema, clubbing or cyanosis Objective Last Vital Signs Temp 37.0 C 04/22/21 07:37 Pulse 87 04/22/21 07:37 Resp 20 04/22/21 07:37 BP 188/82 H 04/22/21 07:37 Pulse Ox 97 04/22/21 07:37
[2021-04-22 14:53] VITALS: BP 148/79; PULSE 79; RESP 20; TEMP 36.7; O2SAT 98
--- NOTE | 2021-04-22 15:43 | PDOC.CMPRO ---
- If Service Date Differs Date of service: 04/22/21 Time of Service: 15:43 Care Management Progress Note S/O: Leticia was lying in bed when CM met with her. She reported that she is feeling better, and per provider, she will likely be ready for discharge tomorrow. She has been changed to oral antibiotics and is tolerating an advanced diet. CM talked to her caregiver today, who stated that she will resume Leticia's MOW in preparation for her to return home. CM will inform her of Leticia's discharge, as she will resume her visits to her home, as well as HH. CM will continue to follow. A: Leticia is a 75 year old female admitted to [facility] on 04/15/21 for acute pancreatitis. P: Leticia will likely be discharged home with a resumption of HH services. She will follow up with her community providers and plan of care. Leticia will transport via [facility]. CM will continue to support Leticia and her discharge planning needs.
[2021-04-22] MEDS: Acetaminophen 325 MG TAB PO (17:40)
[2021-04-22] MEDS: Docusate Sodium 100 MG CAP PO (19:35)
[2021-04-22] MEDS: Normal Saline Flush 10 ML SYR IVP (19:35)
[2021-04-23] MEDS: Acetaminophen 325 MG TAB PO ×2 (00:35→07:51)
[2021-04-23] MEDS: Refresh PLUS Eye Drops 0.4ml OU ×4 (00:37→11:55)
[2021-04-23] MEDS: Vancomycin 125 MG CAP PO ×3 (00:37→11:55)
[2021-04-23 00:57] VITALS: BP 178/84; PULSE 84; RESP 16; TEMP 36.6; O2SAT 99
[2021-04-23 01:35] VITALS: PULSE 80
[2021-04-23 04:05] VITALS: BP 173/69; RESP 17; O2SAT 99
[2021-04-23 06:45] LABS: HCT 27.5 % (36.0-46.0); HGB 9.1 g/dL (11.2-15.7); MCHC 33.1 % (32.0-36.0); MCV 102.6 fL (80-95); MPV 10.4 fL (8.0-11.0); RBC 2.68 10^6/uL (3.93-5.22); RDW 14.7 % (11.7-14.6); WBC 3.43 10^3/uL (4.4-10.8)
[2021-04-23 06:48] LABS: Platelet Count 253 10^3/uL (130-400)
[2021-04-23] MEDS: FLUoxetine 10 MG TAB PO (07:51)
[2021-04-23] MEDS: Multivitamin TAB 1 TAB PO (07:51)
[2021-04-23] MEDS: Creon, Lipase 6,000 CAPCR 1 CAP PO ×2 (07:51→11:55)
[2021-04-23] MEDS: Docusate Sodium 100 MG CAP PO (07:51)
[2021-04-23] MEDS: hydrOXYzine HCL 25 MG TAB PO (07:51)
[2021-04-23] MEDS: Metoprolol 50 MG TAB PO (07:51)
[2021-04-23] MEDS: amLODIPine 5 MG TAB PO (07:51)
[2021-04-23] MEDS: Thiamine 100 MG TAB PO (07:51)
[2021-04-23] MEDS: Sucralfate 1 GM TAB PO ×2 (07:52→11:55)
[2021-04-23] MEDS: Normal Saline Flush 10 ML SYR IVP (07:52)
[2021-04-23] MEDS: Folic Acid 1 MG TAB PO (07:52)
[2021-04-23] MEDS: Famotidine 20 MG TAB PO (07:52)
[2021-04-23] MEDS: Enoxaparin 40 MG/0.4 ML SYR SC (07:52)
[2021-04-23] MEDS: Naltrexone 50 MG TAB PO (07:52)
[2021-04-23 07:53] VITALS: BP 196/96; PULSE 95; RESP 15; TEMP 36.7; O2SAT 97
[2021-04-23 08:52] VITALS: BP 150/86
--- NOTE | 2021-04-23 11:13 | DSE_ITS ---
Date of service: 04/23/21 Time of Service: 11:13 DS: Diagnosis Discharge Diagnosis (1) C. difficile colitis: Status: Acute (2) Pancreatitis: Status: Chronic (3) Alcohol abuse: Status: Chronic (4) Iron deficiency anemia: Status: Chronic (5) Ambulatory dysfunction: Status: Chronic (6) Frequent falls: Status: Chronic (7) Presacral mass: Status: Chronic Discharge Plan Disposition Patient Disposition: HOME W/HOME HEALTH SERVICE Condition: Stable Discharge Details Reason For Visit: Acute Pancreatitis,Dehydration,Intractable Vomitin Admit Date/Time: 04/15/21 08:54 Admit Provider: Gwyn Blake Attending Provider: Gwyn Blake Primary Care Provider: Lavelle Galindo Hospital Course Hospital Course: This is a 75 year old female with multiple medical problems including chronic alcohol intoxication, alcoholic gastritis, hypertension, high cholesterol, chronic transaminitis, presented to ED for vomiting was hydrated and up for admission but refused and went home, 16 hours later she returned due to hyperemesis. She was unable to take her medication due to vomiting. She drinks alcohol regularly. Labs in the ED remarkable for lipase of 1482, elevated liver enzymes, 2.9 lactate, anion gap of 3.9. She was given fluid boluses in the ED. She is Hypertensive with tachycardia. CT abd pelvis revealing a lobulated noncalcified mass in the presacral region measuring approximately 5 x 3 x 4.3 cm, similar in size to CT scan of 02/18/2021 and not associated with adjacent bone destruction of the sacrum. No parapelvic masses nor adenopathy nor ascites. Multiple cysts and probable hemorrhagic cysts in the right kidney, somewhat difficult to assess without IV contrast. Multiple bilateral healed rib fractures again noted. Subtle streaking around the pancreas which may be exaggerated by motion artifact. This presacral mass and CT findings have been known and she has declined work up for it. She is admitted to med/surg under hospitalist services for IV hydration, pain management and bowel rest. Her course was prolonged but diet eventually advanced. she remained hemodynamically stable. her hospital course complicated with diarrhea, found to have cdiff and started on oral vancomycin. she does indorse recent antibiotic use. she has been working with physical therapy and has been progressing, possibly better than her typical discharge baseline at this point. plan is to discharge to home on one week of oral vancomycin to finish course for cdiff. advance diet as tolerated, started on creon with meals. she can use questran as needed bid if contiues with loose stools. she is being discharged to home with home health services. advised to refrain from alcohol to avoid future episodes of pancreatitis. discharge discussed with Dr Joy. Home Meds and New Rx's Prescriptions: New vancomycin 125 mg Capsule 125 mg PO Q6H Qty: 40 RF: 0 cholestyramine-aspartame [Prevalite] 4 gram Powder In Packet 1 ea PO BID PRN PRNQty: 60 RF: 0 Creon 6,000-19,000 -30,000 unit Capsule,Delayed Release(Dr/Ec) 1 cap PO QMEALS Qty: 90 RF: 0 Continued Xiidra 5 % dropperette 1 drp ophthalmic (eye) BID RF: 0 magnesium oxide 400 mg magnesium capsule 400 mg PO BID Qty: 180 RF: 3 Ensure Active High Protein Liquid 414 ml PO DAILY Qty: 81523 RF: 11 ipratropium-albuterol 0.5 mg-3 mg(2.5 mg base)/3 mL solution for nebulization 3 ml IH QID PRN (Reason: shortness of breath) Qty: 90 RF: 3 metoprolol tartrate 50 mg tablet 50 mg PO BID Qty: 180 RF: 3 multivitamin [Multiple Vitamins] Tablet 1 tab PO DAILY Qty: 90 RF: 3 pantoprazole 40 mg tablet,delayed release (DR/EC) 40 mg PO DAILY Qty: 90 RF: 3 potassium chloride [Klor-Con M10] 10 mEq tablet,ER particles/crystals 10 meq PO DAILY Qty: 90 RF: 3 thiamine HCl (vitamin B1) 100 mg tablet 100 mg PO DAILY Qty: 90 RF: 3 folic acid 1 mg tablet 1 mg PO DAILY Qty: 90 RF: 3 hydroxyzine HCl 25 mg tablet 25 mg PO TID PRN (Reason: itching) Qty: 30 RF: 2 ondansetron 4 mg tablet,disintegrating 4 mg PO Q8H PRN (Reason: nausea and vomiting) Qty: 20 RF: 0 fluoxetine 10 mg tablet 10 mg PO DAILY Qty: 30 RF: 1 sucralfate 1 gram tablet 1 g PO AC & HS Qty: 120 RF: 11 Refresh Plus 0.5 % Dropperette 1 drp OU Q4H WHILE AWAKE Qty: 30 RF: 0 Restasis 0.05 % Dropperette 0.4 ml OU BID Qty: 10 RF: 0 Bio-K plus 50 billion cell Capsule,Delayed Release(Dr/Ec) 1 cap PO DAILY Qty: 60 RF: 0 sennosides [Senokot] 8.6 mg tablet 8.6 mg PO PRN PRNRF: 0 naltrexone 50 mg tablet 50 mg PO DAILY RF: 0 amlodipine 5 mg tablet 5 mg PO DAILY RF: 0 Discharge Instructions Instructions: Pancreatitis (DC), C. Diff (Clostridioides Difficile) Infection (DC) Additional Instructions: take all your medication as directed. drink at least glasses of water daily to stay well hydrated. Stand Alone Forms: Nursing Discharge Form Referrals: Lavelle Galindo [Primary Care Provider] - 04/28/21 2:40 pm Activity:: Activity as Tolerated Equipment/Supplies:: No Equipment Needed Diet:: As Tolerated Discharge Orders Discharge Orders: Discharge Order (Routine); Ordered 04/23/21 Ordered By: Kimmy Sierra Discharge Data Discharge Date/Time-TO BE ENTERED AT DEPARTURE: 04/23/21 12:42 DS: Summary Time Spent with Patient providing and/or coordinating discharge services: Greater than 30 minutes Status at Discharge Functional status at discharge: independent ambulation Overall status at discharge: patient is back to baseline Mental Status: mental status grossly normal Speech and Movement: speech and movement normal Mood: congruent mood Affect: normal affect Exam Narrative Exam Narrative: Const: sitting up in bed, chronically ill looking, with tremors, AAOx3 HENMT/EYES: PERRLA, EOMI. No JVD, no lymphedema Chest: normal no scars or rashes Resp: clear diminished. Cardio: RRR, no murmur GI: vomiting, tender to palpation to Right upper quad, and mid abd wrapping around to back,obese contour Back: normal spinal curvature, no CVA tenderness Skin: multiple brusies in multiple areas Neuro: AAOx3 Extremity: no edema, clubbing or cyanosis Psych Mental Status: mental status grossly normal Speech and Movement: speech and movement normal Mood: congruent mood Affect: normal affect DS: Data Vitals/I&O Vitals and I&O: Vital Signs Temperature 36.7 C 04/23/21 07:53 Temperature Source Temporal Artery Scan 04/23/21 07:53 Pulse 95 H 08/26/21 07:53 Pulse Rhythm Regular 04/23/21 00:40 Pulse 124 H 04/15/21 10:22 Respiratory Rate 15 04/23/21 07:53 Respiratory Effort Non-Labored 04/23/21 00:40 Respiratory Depth Normal 04/23/21 00:40 Respiratory Pattern Normal 04/23/21 00:40 Blood Pressure 150/86 H 04/23/21 08:52 Blood Pressure Mean 118 04/15/21 10:17 Blood Pressure Position Supine 04/15/21 06:21 Pulse Oximetry 97 04/23/21 07:53 Oxygen Delivery Method Room Air 04/23/21 07:53 Oxygen Flow Rate 0 04/23/21 07:53 Pain Level 6 04/23/21 07:53 Comment 04/23/21 07:53 Intake & Output 04/22/21 04/22/21 04/23/21 11:59 23:59 11:59 Intake Total 100 / 100 260 / 260 Output Total 100 / 100 200 / 200 Balance 0 / 0 60 / 60 Intake: IV 20 / 20 Oral 100 / 100 240 / 240 Output: Urine 100 / 100 200 / 200 Other: Urine Color Straw Yellow Yellow Urine Appearance Clear Clear Clear Urine Odor Strong None Normal Comment pt flushed before able to check Moderate amount of urine in diaper. Patient was largely incontinent in brief Stool Occult Blood Negative Stool Size Moderate Stool Characteristics Soft Voiding Methods Diaper Bedside Commode Diaper Data Completed and Pending Labs on day of discharge: Labs from last 24 hours 04/23/21 06:27 WBC 3.43 L RBC 2.68 L Hgb 9.1 L Hct 27.5 L MCV 102.6 H MCH 34.0 H MCHC 33.1 RDW 14.7 H Plt Count 253 D MPV 10.4 PFSH Medical History (Updated 04/21/21 @ 15:54 by Kimmy Sierra NP) Acute alcoholism Acute UTI Adjustment disorder with depressed mood AMBER (acute kidney injury) Alcohol abuse Alcohol intoxication Alcohol intoxication Alcoholic gastritis without bleeding Alcoholic ketosis Allergic rhinitis Anemia Back pain, chronic Blunt head trauma Blunt trauma of multiple sites of trunk Calcific tendinitis of left shoulder CAP (community acquired pneumonia) Cataract (11/07/15) Cervical radicular pain neck pain and DJD [facility] Cervical strain 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) pls refrain from alcohol Chronic alcoholism she will not stop drinking unless she checks with me, so that we can help her avert withdrawal I do not think she is capable on her own--she would need placement to achieve required goal of 3 months of sobriety Chronic diarrhea Closed displaced fracture of proximal phalanx of right index finger with routine healing (06/03/17) Closed right humeral fracture Contusion of left little finger Corneal ulcer, right (~08/23/18) 08/23/18; [facility] Dehydration Depression Diarrhea Difficult intravenous access Multiple IV attempts, usually requires ultrasound placement. Discharge planning issues DVT prophylaxis Dystrophic nail Elev transaminase/LDH due to alcohol Epigastric abdominal pain Facial fracture due to fall Facial laceration Fall as cause of accidental injury at home as place of occurrence Fall at home Fracture of humerus, left, closed Genital herpes simplex recurrent gential; suppressive Valtrex GERD (gastroesophageal reflux disease) GI bleed (12/20/16) Head contusion Headache History of alcohol abuse Humerus fracture (09/12/19) Right Hyperlipidemia Hypertension Hypokalemia Hypokalemia Hypokalemia Hypomagnesemia Incidental lung nodule, greater than or equal to 8mm 1cm, spiculated, stable for many years, recommend f/u in 6 mo Intractable vomiting Leukopenia Macrocytosis (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 Multiple contusions Multiple fractures of ribs Multiple rib fractures 03/11/19 [facility] Nausea and vomiting in adult Non-cardiac chest pain (09/21/16[place] [facility]IVE [place] Osteoarthritis Osteopenia Palliative care patient (03/21/17) Pancreatitis, alcoholic, acute Peripheral edema Photophobia of right eye Pleural effusion on left 03/11/19 [facility] Pneumonia Presacral mass (~09/15/18) 09/15/18 [facility] Rash Rib pain on right side Right rib fracture Sacral mass Sciatica right, epidural injuections [facility] Suicidal ideation Tendinitis of left rotator cuff Tubular adenoma of colon (01/28/17) Urinary incontinence 01/24/13 [place] [facility] [place] UTI (urinary tract infection) UTI (urinary tract infection) 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 Bladder repair. Ligation of fallopian tube Repair bladder injury, simple Family History Mother No problems noted. Father , DROWNED at age 50. No problems noted. Sister Personal history of malignant neoplasm MELANOMA Sister No problems noted. Grandfather Personal history of malignant neoplasm STOMACH Grandfather Personal history of malignant neoplasm PROSTATE Grandmother Heart disease CT Acute ill-defined cerebrovascular disease Grandmother Personal history of malignant neoplasm UTERINE Aunt , CT Heart disease CT Aunt , CT Heart disease Brother No problems noted. Social History Smoking/Tobacco Use Status: Former Tobacco Use Quit Date: 08/05/20 Smoking risk assessment performed?: Yes Alcohol Intake: current Alcohol Intake frequency: 3 or more drinks per day Alcohol type: hard liquor Drug use: Never Substance use type: does not use Current gender identity: female Do you feel safe at home: Yes Do you feel safe in your relationship?: Yes Additional Social history: Pt has been binge drinking since 4am
[2021-04-23] MEDS: Bacitracin 1 PACKET TP (12:20)
--- NOTE | 2021-04-23 16:22 | PDOC.CMDIS ---
- If Service Date Differs Date of service: 04/23/21 Time of Service: 16:22 LACE Index Scoring Tool - Questions: Length of Stay (in days): 7 - 13 Acuity (Admit via E.D.?): Yes Comorbidities: Liver or Renal Disease E.D. Visits: 20 - Answers: Total Score: 17 Risk of Readmission: High Risk Care Management Discharge Reason for Hospitalization: acute pancreatitis, dehydration, intractable vomiting Discharge Plan: Leticia returned home today with a resumption of HH RN, OT, with the addition of PT. She was driven home via private vehicle by [facility], who stopped at her pharmacy for her, coordinated by [facility]. CM talked to her caregiver, Armida today, who resumed her MOW, and will resume her caregiving. She will follow up with her PCP and discharge plan of care. She is comfortable returning home, and feels much better than when she arrived. Patient/Family Education Needs: Review discharge instructions regarding activity levels and medications, discussion of self care needs including ask me three and goals of care. Services Needed at Discharge: Home Delivered Meals (MOW), Home Health Care Services (resume HH RN, OT, add PT), Transportation ([facility])
--- NOTE | 2021-04-24 17:40 | PT.INDS ---
Date of service: 04/24/21 PT Notes Visit Reasons: Acute Pancreatitis,Dehydration,Intractable Vomitin Physical Therapy Inpatient Discharge Summary Date: 04/24/2021 Dates of service: 04/16/2021 through 04/22/2021 This is a clinical summary of care provided for the duration of dates listed above. No charge was made in the completion of this documentation. Referring Doctor: Pat Navarro NP PT Orders: PT CONSULT:Eval/Treat. Precautions: Standard. Falls. IV access through anterior tibial vein on the R side. Patient Profile/Admitting Diagnosis: Leticia is a 75-year-old female who is well known to our service who presented to the ED on 04/15/2021 due to persistent vomitting and dehydration. Patietn is diagnosed with pancreatitis, Dehaydration, ETOH abuse, MARIELA, transaminitis, ambulatory dysfunction, and frequent falls. PMHX: Medical History Acute alcoholism Acute UTI Adjustment disorder with depressed mood AMBER (acute kidney injury) Alcohol abuse Alcohol intoxication Alcohol intoxication Alcoholic gastritis without bleeding Alcoholic ketosis Allergic rhinitis Anemia Back pain, chronic Blunt head trauma Blunt trauma of multiple sites of trunk Calcific tendinitis of left shoulder CAP (community acquired pneumonia) Cataract (11/07/15) Cervical radicular pain neck pain and DJD [facility] Cervical strain 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) pls refrain from alcohol Chronic alcoholism she will not stop drinking unless she checks with me, so that we can help her avert withdrawal I do not think she is capable on her own--she would need placement to achieve required goal of 3 months of sobriety Chronic diarrhea Closed displaced fracture of proximal phalanx of right index finger with routine healing (06/03/17) Closed right humeral fracture Contusion of left little finger Corneal ulcer, right (~08/23/18) 08/23/18; [facility] Dehydration Depression Diarrhea Discharge planning issues DVT prophylaxis Dystrophic nail Elev transaminase/LDH due to alcohol Epigastric abdominal pain Facial fracture due to fall Facial laceration Fall as cause of accidental injury at home as place of occurrence Fall at home Fracture of humerus, left, closed Genital herpes simplex recurrent gential; suppressive Valtrex GERD (gastroesophageal reflux disease) GI bleed (12/20/16) Head contusion Headache History of alcohol abuse Humerus fracture (09/12/19) Right Hyperlipidemia Hypertension Hypokalemia Hypokalemia Hypokalemia Hypomagnesemia Incidental lung nodule, greater than or equal to 8mm 1cm, spiculated, stable for many years, recommend f/u in 6 mo Intractable vomiting Leukopenia Macrocytosis (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 Multiple contusions Multiple fractures of ribs Multiple rib fractures 03/11/19 [facility] Nausea and vomiting in adult Non-cardiac chest pain (09/21/16) [facility] [place] 09/21/16 NEGATIVE MP Osteoarthritis Osteopenia Palliative care patient (03/21/17) Pancreatitis, alcoholic, acute Peripheral edema Photophobia of right eye Pleural effusion on left 03/11/19 [facility] Pneumonia Presacral mass (~09/15/18) 09/15/18 [facility] Rash Rib pain on right side Right rib fracture Sacral mass Sciatica right, epidural injuections [facility] Suicidal ideation Tendinitis of left rotator cuff Tubular adenoma of colon (01/28/17) Urinary incontinence 01/24/13 urethral suspension and sling at [facility] [place] (bladder suspension 1991) UTI (urinary tract infection) UTI (urinary tract infection) 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 Bladder repair. Ligation of fallopian tube Repair bladder injury, simple Social History/Home Situation: Leticia lives in a private home in [place], [place]. She has a caregiver who comes in daily 4 days per week for 2 hours each time to assist with laundry, minor house chores, and grocery shopping. Patient is independent with ADLs using a front wheeled walker. She receives meals on wheels. She no longer drives. Equipment Owned/DME: FWW, SC, grab bars, emergency alert device Subjective: NT. See most recent WE[employer] SUR[employer]YING ENGINEER notes. Objective: General Observation: NT. See most recent [employer]YING [employer] notes. Mental Status: NT. See most recent [employer]YING [employer] notes. Pain: NT. See most recent [employer]YING [employer] notes. ROM: Right Upper Extremity: Shoulder Flexion allows up to 90 degrees. Shoulder abduction allows up to 70 degrees. Elbow flexion WFL. Wrist flexion WFL. Functional opening and closing of hand WFL. Left Upper Extremity: Shoulder Flexion allows up to 100 degrees. Shoulder abduction allows up to 90 degrees. Elbow flexion WFL. Wrist flexion WFL. Functional opening and closing of hand WFL. Right Lower Extremity: Hip flexion allows up to 20 degrees beyond 90 while seated at edge of bed. Hip abduction WFL. Knee flexion 30-90 degrees. Knee extension -30 degrees. Ankle dorsiflexion WFL. Ankle plantarflexion WFL. Left Lower Extremity: Hip flexion allows up to 20 degrees beyond 90 while seated at edge of bed. Hip abduction WFL. Knee flexion 30-90 degrees. Knee extension -30 degrees. Ankle dorsiflexion WFL. Ankle plantarflexion WFL. Strength: Right Upper Extremity: Shoulder flexors 3-/5. Shoulder abductors 3-/5. Elbow flexors 4/5. Elbow extensors 4/5. Head Operator Sulfide strong. Left Upper Extremity: Shoulder flexors 3-/5. Shoulder abductors 3-/5. Elbow flexors 4/5. Elbow extensors 4/5. Head Operator Sulfide strong. Right Lower Extremity: Hip flexors 3-/5. Hip abductors 4-/5. Knee flexors 3-/5. Knee extensors 3-/5. Ankle dorsiflexors 4-/5. Ankle plantarflexors 4-/5. Left Lower Extremity: Hip flexors 3-/5. Hip abductors 4-/5. Knee flexors 3-/5. Knee extensors 3-/5. Ankle dorsiflexors 4-/5. Ankle plantarflexors 4-/5. Bed Mobility/Transfers: Supine to sit independent Sit to stand independent Stand to sit independent Bed to chair independent Gait: Able to tolerate up to 100 feet of level surface ambulation using front wheel walker with full weight bearing independently without any complaints. Balance: Static Sitting: Normal Dynamic Sitting: Normal Static Standing: Fair Dynamic Standing: Fair Assessment: Patient demonstrates significant functional mobility improvement during this episode of care as evidenced by current mobility level above and goal status below. Goals X1 week 1. Supine-Sit independent MET 2. Sit-Supine independent MET 3. Sit-Stand independent MET 4. Stand-Sit independent MET 5. Bed-Chair independent MET 6. Chair-Bed independent MET 7. Independent gait on level surface with use of straight cane for at least 300 feet without report of pain nor dyspnea NOT MET 8. Independent stair negotiation while holding onto bilateral rails for at least 5 steps without report of pain nor dyspnea NOT MET 9. Good static and dynamic standing balance/tolerance NOT MET DISCHARGE RECOMMENDATIONS: Patient will benefit from home health PT services in order to progress mobility level using least restrictive assistive ambulatory device, assess home safety, identify additional equipment needs, and establish a functional maintenance program that will increase ability of patient to remain at home. TREATMENT CODE/TIME: AK Thank you for the opportunity to participate in the care of this patient. Tawana Cruz PT, DPT, CLT [facility] [place], [place]
== END 2021-04-23 12:42 | disposition home health service (06) | DRG 439 ==
LOC: ER 08:42 → MS 10:34
PROVIDERS: Family Medicine; Nurse Practitioner Acute Care; Nurse Practitioner Family; Student in an Organized Health Care Education/Training Program; Admitting Provider Internal Medicine; Emergency Provider Emergency Medicine; PCP Family Medicine; Visit Provider Internal Medicine
DX: K85.20 Alcohol induced acute pancreatitis without necrosis or infection (principal); R45.851 Suicidal ideations; E51.2 Wernicke's encephalopathy; A04.72 Enterocolitis due to Clostridium difficile, not specified as recurrent; E86.0 Dehydration; K29.20 Alcoholic gastritis without bleeding; E78.00 Pure hypercholesterolemia, unspecified; I10 Essential (primary) hypertension; R74.01 Elevation of levels of liver transaminase levels; G89.29 Other chronic pain; M54.9 Dorsalgia, unspecified; M54.12 Radiculopathy, cervical region; K21.9 Gastro-esophageal reflux disease without esophagitis; A60.00 Herpesviral infection of urogenital system, unspecified; E78.5 Hyperlipidemia, unspecified; E87.6 Hypokalemia; E83.42 Hypomagnesemia; R91.1 Solitary pulmonary nodule; R60.0 Localized edema; Z87.891 Personal history of nicotine dependence; R29.6 Repeated falls; F10.229 Alcohol dependence with intoxication, unspecified; K76.0 Fatty (change of) liver, not elsewhere classified; D50.8 Other iron deficiency anemias; R26.2 Difficulty in walking, not elsewhere classified; R19.09 Other intra-abdominal and pelvic swelling, mass and lump
CPT/HCPCS: 36415; 76770; 76942; 80048; 80053; 83690; 85027; 87493; 87635; 93005; 96361; 96374; 96375; 97110; 97162; 97530; 99285; J1650; 71045; 74176; 80320; 81003; 81015; 83605; 83735; 84132; 85025; 93010; 99223; 99232; 99233; 99239; J0360; J2060; J2405; J3475; J3480; J3490

== ENCOUNTER 2021-05-12 08:32 | Observation (INO) | payer OTHER, MEDICARE, SELFPAY ==
[2021-05-12] VITALS (66 sets, daily range): BP systolic 164–190; BP diastolic 81–155; PULSE 103–146; RESP 14–31; TEMP 36.2–37.4; O2SAT 95–100
--- NOTE | 2021-05-12 08:30 | RT.EKG_ITS ---
APPROVED REPORT Exam: Resting ECG Reason for Exam: tachycardia Patient Location: E HR:117 bpm ECG Measurements Heart Rate 117 AXIS ID 161 P 45 QRSd 85 QRS -28 QT 334 T -3 QTc 467 Conclusion Sinus tachycardia...rate> 99. Sinus. No STEMI. I have reviewed and interpreted ECG and agree with software generated interpretation.
--- NOTE | 2021-05-12 08:35 | W.ED.GENAD ---
Discharge Plan Disposition Patient Disposition: [facility] INPATIENT Condition: Stable Discharge Details Clinical Impression: Alcohol withdrawal, Hypomagnesemia, Vomiting Admit Date/Time: 05/12/21 14:01 Admit Provider: Aydin Joy Attending Provider: Aydin Joy Primary Care Provider: Lavelle Galindo. ED Provider: Megan Foster Discharge Data Discharge Date/Time-TO BE ENTERED AT DEPARTURE: 05/12/21 14:55 Medical Decision Making 0900 -- 76-year-old female well-known to the emergency department recently admitted here over 2 weeks ago for hyperemesis in the setting of alcohol use and noted to have pancreatitis and C. difficile colitis, sent home on oral vancomycin presents for complaint of coughing and abdominal pain. Last alcoholic drink was 4 days ago. Heart rate 130s. Blood pressure hypertensive at 183/102. She is oriented x3 and does not appear to be in acute alcohol withdrawal. She is actively coughing. Her abdomen is soft but diffusely tender throughout without rigidity or guarding. She states she has not had watery stools over the last few weeks even since her diagnosis of C. difficile. Last bowel movement 4 days ago. Consider pancreatitis, electrolyte abnormality, Covid, arrhythmia, UTI, pneumonia, etc. Will obtain screening labs, EKG, portable chest x-ray and give fluids, banana bag, GI cocktail and antiemetic. 0950 -- Pt's caregiver Armida called the ED stating that patient has been drinking even up to this morning. She states she was intoxicated last evening and had an alcoholic drink near her this morning. 1020 --labs and imaging reviewed. White blood cell count 4.28. Hemoglobin 11. Potassium 3.4, will replete. Anion gap 14. Mag 1.3, will replete. Troponin negative. Lipase normal at 104. Urine notes 5-10 WBCs, trace leukocyte esterase, many bacteria and positive nitrates, patient has history of chronic frequent UTI. Chest x-ray negative. Patient reassessed and she would like to try p.o. Heart rate remains 110s. If heart rate improves and patient able to tolerate p.o., can consider discharge to home. 1445 --patient able to take some Jell-O and ice chips but states she does not feel better. Heart rate remains in the 110s. Blood pressure remains hypertensive at 180/90. CIWA score 22. Patient states she feels that she cannot go home. Will admit for IV fluid hydration, finished banana bag, continued electrolyte repletion as needed, continued monitoring for alcohol withdrawal. Case discussed with hospitalist who accepts patient for admission. Medical Records Medical records reviewed: Yes I reviewed the patient's medical records. Imaging Data Radiologic Study: Radiologist's impression: XR PORTABLE CHEST AP CLINICAL HISTORY: cough, sob, r/o acute disease TECHNIQUE: 2D digital imaging was performed. COMPARISON: CT CT CHEST/ABD/PEL WO from 02/18/[address] CHEST/ABD/PEL WO from 02/18/[address] ABDOMEN PELVIS WO from 04/15/[address] ABDOMEN PELVIS WO from 04/15/2021 CR XR PORTABLE CHEST AP from 04/16/2021 FINDINGS: LUNGS: Clear. No pneumothorax or pleural effusion. Chronic blunting at the left costophrenic angle. HEART: Normal. MEDIASTINUM: Normal. BONES: Old bilateral rib fractures.. Degenerative changes spine and shoulders. IMPRESSION: No acute pulmonary findings. Lab Data Lab results reviewed: Yes I reviewed the patient's lab results. ECG Data Attestation: I personally reviewed and interpreted this ECG (s) as follows: Interpretation: Rate of 117, sinus. [place] 151. QTc 467. No STEMI. HPI General Mode of arrival: ambulatory. Date/Time Provider Initiated Documentation: 05/12/21 08:51. Limitations to Documentation: no limitations. Information obtained by: patient. HPI Narrative: Patient is a 76-year-old female well-known to the emergency department with frequent ED visits and hospital admissions presents for coughing, vomiting, shortness of breath, abdominal pain, decreased appetite for the past 4 days. Patient was discharged from here over 2 weeks ago for hyperemesis in the setting of alcohol use, and found to have pancreatitis and C. difficile colitis. She was sent home on p.o. vancomycin which she states she has been unable to take for the past few days as she has been unable to any medications, fluids or food down. Her last episode of vomiting was yesterday morning. She states she vomited a few times over the weekend. He states she has been frequently coughing but this is been nonproductive. She does admit to intermittent shortness of breath. She states she has had diffuse abdominal pain consistent with her pancreatitis. Her last alcoholic drink was 4 days ago. She states she had not had watery stools at the time of her C. difficile colitis and has not had a bowel movement for the past 4 days. Related Data Home Medications Medication Instructions Recorded Confirmed Refresh Plus 1 drp OU Q4H WHILE AWAKE #30 each 06/20/19 05/12/21 food supplemt, lactose-reduced 414 ml PO DAILY #12289 ml 08/24/19 05/12/21 ipratropium 0.5 mg-albuterol 3 mg 3 ml IH QID PRN #90 ml 01/04/20 05/12/21 (2.5 mg base)/3 mL nebulization soln lifitegrast 5 % eye drops in a 1 drp OPHTHALMIC (EYE) BID 08/05/20 05/12/21 dropperette folic acid 1 mg tablet 1 mg PO DAILY #90 tab 09/05/20 05/12/21 metoprolol tartrate 50 mg tablet 50 mg PO BID #180 tab 09/05/20 05/12/21 multivitamin 1 tab PO DAILY #90 tab 09/05/20 05/12/21 thiamine HCl (vitamin B1) 100 mg 100 mg PO DAILY #90 tab 09/05/20 05/12/21 tablet Restasis 0.4 ml OU BID #10 ea 10/25/20 05/12/21 amlodipine 5 mg PO DAILY 11/12/20 05/12/21 fluoxetine 10 mg tablet 10 mg PO DAILY #30 tab 03/27/21 05/12/21 sucralfate 1 gram tablet 1 g PO AC & HS #120 tab 04/04/21 05/12/21 Creon 1 cap PO QMEALS #90 cap 04/23/21 05/12/21 cholestyramine-aspartame 1 ea PO BID PRN PRN #60 ea 04/23/21 05/12/21 [Prevalite] ondansetron 4 mg disintegrating 4 mg PO Q8H PRN #20 tab 04/28/21 05/12/21 tablet cefpodoxime 100 mg PO Q12H #9 tab 05/13/21 potassium chloride [Klor-Con M20] 40 meq PO ONCE #1 tab 05/13/21 Previous Rx's Medication Instructions Recorded Refresh Plus 1 drp OU Q4H WHILE AWAKE #30 each 06/20/19 food supplemt, lactose-reduced 414 ml PO DAILY #03288 ml 08/24/19 ipratropium 0.5 mg-albuterol 3 mg 3 ml IH QID PRN #90 ml 01/04/20 (2.5 mg base)/3 mL nebulization soln folic acid 1 mg tablet 1 mg PO DAILY #90 tab 09/05/20 metoprolol tartrate 50 mg tablet 50 mg PO BID #180 tab 09/05/20 multivitamin 1 tab PO DAILY #90 tab 09/05/20 thiamine HCl (vitamin B1) 100 mg 100 mg PO DAILY #90 tab 09/05/20 tablet Restasis 0.4 ml OU BID #10 ea 10/25/20 fluoxetine 10 mg tablet 10 mg PO DAILY #30 tab 03/27/21 sucralfate 1 gram tablet 1 g PO AC & HS #120 tab 04/04/21 Creon 1 cap PO QMEALS #90 cap 04/23/21 cholestyramine-aspartame 1 ea PO BID PRN PRN #60 ea 04/23/21 [Prevalite] ondansetron 4 mg disintegrating 4 mg PO Q8H PRN #20 tab 04/28/21 tablet cefpodoxime 100 mg PO Q12H #9 tab 05/13/21 potassium chloride [Klor-Con M20] 40 meq PO ONCE #1 tab 05/13/21 Allergies Allergy/AdvReac Type Severity Reaction Status Date / Time Penicillins Allergy Mild Rash Verified 05/12/21 09:08 ramipril Allergy Unknown ITCHING Verified 05/12/21 09:08 meperidine [From Demerol] AdvReac Severe Nausea Verified 05/12/21 09:08 bupropion AdvReac Mild GI upset Verified 05/12/21 09:08 AMBER Inhibitors AdvReac Unknown COUGH Verified 05/12/21 09:08 alendronate sodium AdvReac Unknown GI Distress Verified 05/12/21 09:08 clarithromycin AdvReac Unknown intolerant Verified 05/12/21 09:08 paroxetine AdvReac Unknown Diarrhea Verified 05/12/21 09:08 General JORDAN: 3 Review of Systems All systems reviewed & are unremarkable except as noted in HPI and below Constitutional Constitutional: Reports as per HPI, Denies chills, Denies fever(s) and Reports poor appetite Eyes Eyes: Denies blurry vision ENT Ears, Nose, Mouth, and Throat: Denies dizziness, Denies sore throat and Denies throat swelling Cardiovascular Cardiovascular: Denies chest pain and Denies dyspnea Respiratory Respiratory: Reports cough and Denies dyspnea Gastrointestinal Gastrointestinal: Reports abdominal pain, Denies diarrhea and Reports vomiting Genitourinary Genitourinary: Denies hematuria and Denies dysuria Musculoskeletal Musculoskeletal: Denies back pain and Denies numbness Integumentary/Breasts Skin/Breast: Denies lesions and Denies rash Neurologic Neurologic: Denies dizziness, Denies localized weakness and Denies numbness Allergic/Immunologic Allergic/Immunologic: Denies throat swelling [facility] Medical History Acute alcoholism Acute UTI Adjustment disorder with depressed mood AMBER (acute kidney injury) Alcohol abuse Alcohol intoxication Alcohol intoxication Alcoholic gastritis without bleeding Alcoholic ketosis Allergic rhinitis Anemia Back pain, chronic Blunt head trauma Blunt trauma of multiple sites of trunk Calcific tendinitis of left shoulder CAP (community acquired pneumonia) Cataract (11/07/15) Cervical radicular pain neck pain and [facility] Cervical strain 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) pls refrain from alcohol Chronic alcoholism she will not stop drinking unless she checks with me, so that we can help her avert withdrawal I do not think she is capable on her own--she would need placement to achieve required goal of 3 months of sobriety Chronic diarrhea Closed displaced fracture of proximal phalanx of right index finger with routine healing (06/03/17) Closed right humeral fracture Contusion of left little finger Corneal ulcer, right (~08/23/18) 08/23/18; [facility] Dehydration Depression Diarrhea Difficult intravenous access Multiple IV attempts, usually requires ultrasound placement. Discharge planning issues DVT prophylaxis Dystrophic nail Elev transaminase/LDH due to alcohol Epigastric abdominal pain Facial fracture due to fall Facial laceration Fall as cause of accidental injury at home as place of occurrence Fall at home Fracture of humerus, left, closed Genital herpes simplex recurrent gential; suppressive Valtrex GERD (gastroesophageal reflux disease) GI bleed (12/20/16) Head contusion Headache History of alcohol abuse Humerus fracture (09/12/19) Right Hyperlipidemia Hypertension Hypokalemia Hypokalemia Hypokalemia Hypomagnesemia Incidental lung nodule, greater than or equal to 8mm 1cm, spiculated, stable for many years, recommend f/u in 6 mo Intractable vomiting Leukopenia Macrocytosis (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 Multiple contusions Multiple fractures of ribs Multiple rib fractures 03/11/19 [facility] Nausea and vomiting in adult Non-cardiac chest pain (09/21/16) [facility] 09/21/16 NEGATIVE MP Osteoarthritis Osteopenia Palliative care patient (03/21/17) Pancreatitis, alcoholic, acute Peripheral edema Photophobia of right eye Pleural effusion on left 03/11/19 [facility] Pneumonia Presacral mass (~09/15/18) 09/15/18 [facility] Rash Rib pain on right side Right rib fracture Sacral mass Sciatica right, epidural injuections [facility] Suicidal ideation Tendinitis of left rotator cuff Tubular adenoma of colon (01/28/17) Urinary incontinence 01/24/13 urethral suspension and sling at [facility] (bladder suspension 1991) UTI (urinary tract infection) UTI (urinary tract infection) 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 Bladder repair. Ligation of fallopian tube Repair bladder injury, simple Family History Mother No problems noted. Father , DROWNED at age 50. No problems noted. Sister Personal history of malignant neoplasm MELANOMA Sister No problems noted. Grandfather Personal history of malignant neoplasm STOMACH Grandfather Personal history of malignant neoplasm PROSTATE Grandmother Heart disease [place] Acute ill-defined cerebrovascular disease Grandmother Personal history of malignant neoplasm UTERINE Aunt , [place] Heart disease [place] Aunt , [place] Heart disease Brother No problems noted. Social History Smoking/Tobacco Use Status: Former Tobacco Use Quit Date: 08/05/20 Smoking risk assessment performed?: Yes Alcohol Intake: current Alcohol Intake frequency: 3 or more drinks per day Alcohol type: hard liquor Drug use: Never Substance use type: does not use Current gender identity: female Do you feel safe at home: Yes Do you feel safe in your relationship?: Yes Additional Social history: Pt has been binge drinking since 4am Exam Const General: cooperative, no acute distress and ill appearing chronically HENMT Head: normal to inspection Ears: hearing grossly normal bilaterally and external ears normal Face and sinus: normal facial exam Eyes General: appearance normal, both eyes and all related structures Pupils: PERRL EOM: EOM intact bilaterally Neck Neck: normal visual inspection and No submandibular swelling Lymphatic: no lymphadenopathy noted Chest Chest: normal inspection of the chest and no tenderness Resp Effort & Inspection: normal respiratory effort, able to speak in complete sentences and cough Quality of cough: actively coughing Auscultation: clear to auscultation bilaterally, no rhonchi and no wheezes Cardio Rate: tachycardic Rhythm: regular rhythm GI Palpation: soft, not firm, not rigid and tender (throughout) Auscultation: hypoactive bowel sounds Skin General skin exam: no rashes or lesions noted Neuro General: patient alert, patient awake and patient oriented x3 Cognition: normal cognition Speech: speech normal Motor: muscle tone normal throughout Sensory Exam: no sensory deficits noted Extrem General: normal to inspection, full ROM, capillary refill normal, no calf tenderness bilaterally and no edema Psych Appearance: grossly normal Mental Status: mental status grossly normal Speech and Movement: speech and movement normal Affect: normal affect
--- NOTE | 2021-05-12 08:45 | DI.RAD_ITS ---
Exam(s) XR PORTABLE CHEST AP EXAM: XR PORTABLE CHEST AP CLINICAL HISTORY: cough, sob, r/o acute disease TECHNIQUE: 2D digital imaging was performed. COMPARISON: CT CT CHEST/ABD/PEL WO from 02/18/[address] CHEST/ABD/PEL WO from 02/18/[address] ABDOMEN PELVIS WO from 04/15/[address] ABDOMEN PELVIS WO from 04/15/2021 CR XR PORTABLE CHEST AP from 04/16/2021 FINDINGS: LUNGS: Clear. No pneumothorax or pleural effusion. Chronic blunting at the left costophrenic angle. HEART: Normal. MEDIASTINUM: Normal. BONES: Old bilateral rib fractures.. Degenerative changes spine and shoulders. IMPRESSION: No acute pulmonary findings. DATA REPOSITORY: RADIATION DOSE DELIVERED:
[2021-05-12] MEDS: Ondansetron 4 MG/2 ML VIAL IVP ×2 (08:50→15:46)
[2021-05-12] MEDS: Normal Saline 1,000 ML 1000 ML IV (08:50)
[2021-05-12 08:55] LABS: Abs Immature Grans 0.01 10^3/uL (0.0-0.06); Absolute Basophil Count 0.01 10^3/uL (0.0-0.2); Absolute Monocyte Count 0.36 10^3/uL (0.1-0.8); Basophils % 0.2; HCT 35.3 % (36.0-46.0); HGB 11.6 g/dL (11.2-15.7); Immature Grans % 0.2; MCH 33.8 pg (27.0-33.0); MCHC 32.9 % (32.0-36.0); MCV 102.9 fL (80-95); MPV 8.9 fL (8.0-11.0); Monocytes % 8.4; Neutrophils % 77.2; Nucleated RBC 0 %; Platelet Count 203 10^3/uL (130-400); RBC 3.43 10^6/uL (3.93-5.22); RDW 13.6 % (11.7-14.6); WBC 4.28 10^3/uL (4.4-10.8)
[2021-05-12 08:59] LABS: Source Nasal/Nares
[2021-05-12] MEDS: FAMOTIDINE 20 MG/50 ML BAG 200 MG IVPB (09:00)
[2021-05-12 09:04] LABS: Lipase 104 U/L (73-393)
[2021-05-12 09:05] LABS: Magnesium 1.3 mg/dL (1.8-2.4)
[2021-05-12 09:12] LABS: ALT 44 U/L (14-59); AST 63 U/L (15-37); Albumin 3.2 g/dL (3.4-5.0); Alkaline Phosphatase 168 U/L (46-116); Anion Gap 14.6 mmol/L (3-11); BUN 12 mg/dL (7-18); Bilirubin, Total 1.3 mg/dL (0.2-1.0); CO2 24.4 mmol/L (21.0-32.0); CREATININE 0.9 mg/dL (0.55-1.02); Calcium 9.3 mg/dL (8.5-10.1); Chloride 102 mmol/L (98-107); Glucose 170 mg/dL (74-106); Potassium 3.4 mmol/L (3.5-5.1); Sodium 141 mmol/L (136-145); Total Protein 6.9 g/dL (6.4-8.2)
[2021-05-12 09:13] LABS: Troponin I < 0.05 ng/mL (<0.06)
[2021-05-12 09:47] LABS: Bilirubin Negative (Negative); Blood Negative (Negative); Clarity Sl Cloudy (Clear); Glucose Negative (Negative); Ketones Negative (Negative); Leukocyte Esterase Trace (Negative); Nitrite Positive (Negative); Specific Gravity 1.025 (1.005-1.025); Urobilinogen 0.2 EU/dL (Up TO 0.2)
[2021-05-12 09:58] LABS: Bacteria Many HPF (Negative); Casts Negative LPF (Negative); Crystals Negative HPF (Negative); Epithelial Cells Negative HPF (Negative); Other Cells Negative (Negative)
[2021-05-12 09:59] LABS: C & S Indicated? Yes; Mucus Negative (Negative)
[2021-05-12] MEDS: POTASSIUM CHLORIDE 20 MEQ/100 ML BAG 50 MEQ IVPB (10:00)
[2021-05-12] MEDS: MAGNESIUM SULFATE 8.12 MEQ, MULTIVITAMIN 10 ML, THIAMINE 100 MG, FOLIC ACID 1 MG in Nor... 168.867 MG IV (10:00)
[2021-05-12 10:01] LABS: COVID-19 PCR Negative (Negative)
[2021-05-12 10:08] LABS: ETHANOL BLOOD < 3.0 mg/dL (<3)
--- NOTE | 2021-05-12 14:11 | HPE_ITS ---
Date of service: 05/12/21 Time of Service: 14:11 Assessment and Plan Assessment and plan (1) Nausea and vomiting in adult: Status: Acute Assessment and plan: referred to observation. iv fluids, antiemetics no sign of alcohol withdrawal. will continue to monitor (2) Alcohol abuse: Status: Chronic Assessment and plan: alcohol level <3 and reports last drink 4 days ago. she has not withdrawn in the past ED provider reports no sign of withdrawal at this time. continue thiamine she has had no desire to stop (3) Hypomagnesemia: Status: Acute Assessment and plan: replete and follow (4) Pancreatitis: Status: Chronic Assessment and plan: lipase normal, no evidence of acute episode. continue to monitor Qualifiers: Acute pancreatitis complication: no infection or necrosis Chronicity: acute Pancreatitis type: alcohol induced Qualified Code(s): K85.20 - Alcohol induced acute pancreatitis without necrosis or infection (5) C. difficile colitis: Status: Acute Assessment and plan: treated with vancomycin. no diarrhea since treatment monitor (6) Discharge planning issues: Status: Acute Assessment and plan: plan to discharge home tomorrow with resumption of services. discussed with Dr Joy. History of Present Illness History of Present Illness Chief Complaint: nausea and vomiting Narrative: this is a 76-year-old female well-known to [facility], recently admitted here over 2 weeks ago for hyperemesis in the setting of alcohol use and noted to have pancreatitis and C. difficile colitis, sent home on oral vancomycin presents for complaint of coughing and abdominal pain. Reports last alcoholic drink was 4 days ago. Heart rate 130s. Blood pressure hypertensive at 183/102. She is oriented x3 and does not appear to be in acute alcohol withdrawal. Work up in the ED consistent with dehydration, no evidence of acute pancreatitis or colitis. Her cxr with no evidence of pneumonia. she was given IV fluids and antiemetics but still not feeling well enough to be safely discharged to home. hospitalist was asked to admit her to observation overnight for fluids and further monitoring. Review of Systems All systems reviewed & are unremarkable except as noted in HPI and below [facility] Medical History (Updated 05/12/21 @ 14:18 by Kimmy Sierra NP) Acute alcoholism Acute UTI Adjustment disorder with depressed mood AMBER (acute kidney injury) Alcohol abuse Alcohol intoxication Alcohol intoxication Alcoholic gastritis without bleeding Alcoholic ketosis Allergic rhinitis Anemia Back pain, chronic Blunt head trauma Blunt trauma of multiple sites of trunk Calcific tendinitis of left shoulder CAP (community acquired pneumonia) Cataract (11/07/15) Cervical radicular pain neck pain and DJD [facility] Cervical strain 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) pls refrain from alcohol Chronic alcoholism she will not stop drinking unless she checks with me, so that we can help her avert withdrawal I do not think she is capable on her own--she would need placement to achieve required goal of 3 months of sobriety Chronic diarrhea Closed displaced fracture of proximal phalanx of right index finger with routine healing (06/03/17) Closed right humeral fracture Contusion of left little finger Corneal ulcer, right (~08/23/18) 08/23/18; [facility] Dehydration Depression Diarrhea Difficult intravenous access Multiple IV attempts, usually requires ultrasound placement. Discharge planning issues DVT prophylaxis Dystrophic nail Elev transaminase/LDH due to alcohol Epigastric abdominal pain Facial fracture due to fall Facial laceration Fall as cause of accidental injury at home as place of occurrence Fall at home Fracture of humerus, left, closed Genital herpes simplex recurrent gential; suppressive Valtrex GERD (gastroesophageal reflux disease) GI bleed (12/20/16) Head contusion Headache History of alcohol abuse Humerus fracture (09/12/19) Right Hyperlipidemia Hypertension Hypokalemia Hypokalemia Hypokalemia Hypomagnesemia Incidental lung nodule, greater than or equal to 8mm 1cm, spiculated, stable for many years, recommend f/u in 6 mo Intractable vomiting Leukopenia Macrocytosis (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 Multiple contusions Multiple fractures of ribs Multiple rib fractures 03/11/19 [facility] Nausea and vomiting in adult Non-cardiac chest pain [place]09[place]21/16[place] [facility] [place] NEGATIVE MP Osteoarthritis Osteopenia Palliative care patient (03/21/17) Pancreatitis, alcoholic, acute Peripheral edema Photophobia of right eye Pleural effusion on left 03/11/19 [facility] Pneumonia Presacral mass (~09/15/18) 09/15/18 [facility] Rash Rib pain on right side Right rib fracture Sacral mass Sciatica right, epidural injuections [facility] Suicidal ideation Tendinitis of left rotator cuff Tubular adenoma of colon (01/28/17) Urinary incontinence 01/24/13 [place] [facility] [place] UTI (urinary tract infection) UTI (urinary tract infection) 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 Bladder repair. Ligation of fallopian tube Repair bladder injury, simple Family History Mother No problems noted. Father , DROWNED at age 50. No problems noted. Sister Personal history of malignant neoplasm MELANOMA Sister No problems noted. Grandfather Personal history of malignant neoplasm STOMACH Grandfather Personal history of malignant neoplasm PROSTATE Grandmother Heart disease [place] Acute ill-defined cerebrovascular disease Grandmother Personal history of malignant neoplasm UTERINE Aunt , [place] Heart disease [place] Aunt , [place] Heart disease Brother No problems noted. Social History Smoking/Tobacco Use Status: Former Tobacco Use Quit Date: 08/05/20 Smoking risk assessment performed?: Yes Alcohol Intake: current Alcohol Intake frequency: 3 or more drinks per day Alcohol type: hard liquor Drug use: Never Substance use type: does not use Current gender identity: female Do you feel safe at home: Yes Do you feel safe in your relationship?: Yes Additional Social history: Pt has been binge drinking since 4am Meds Allergies and Home Medications Allergies Allergy/AdvReac Type Severity Reaction Status Date / Time Penicillins Allergy Mild Rash Verified 05/12/21 09:08 ramipril Allergy Unknown ITCHING Verified 05/12/21 09:08 meperidine [From Demerol] AdvReac Severe Nausea Verified 05/12/21 09:08 bupropion AdvReac Mild GI upset Verified 05/12/21 09:08 AMBER Inhibitors AdvReac Unknown COUGH Verified 05/12/21 09:08 alendronate sodium AdvReac Unknown GI Distress Verified 05/12/21 09:08 clarithromycin AdvReac Unknown intolerant Verified 05/12/21 09:08 paroxetine AdvReac Unknown Diarrhea Verified 05/12/21 09:08 Home Medications Medication Instructions Recorded Confirmed Type Refresh Plus 1 drp OU Q4H WHILE AWAKE #30 each 06/20/19 05/12/21 Rx food supplemt, lactose-reduced 414 ml PO DAILY #79356 ml 08/24/19 05/12/21 Rx ipratropium 0.5 mg-albuterol 3 mg 3 ml IH QID PRN #90 ml 01/04/20 05/12/21 Rx (2.5 mg base)/3 mL nebulization soln lifitegrast 5 % eye drops in a 1 drp OPHTHALMIC (EYE) BID 08/05/20 05/12/21 History dropperette folic acid 1 mg tablet 1 mg PO DAILY #90 tab 09/05/20 05/12/21 Rx metoprolol tartrate 50 mg tablet 50 mg PO BID #180 tab 09/05/20 05/12/21 Rx multivitamin 1 tab PO DAILY #90 tab 09/05/20 05/12/21 Rx thiamine HCl (vitamin B1) 100 mg 100 mg PO DAILY #90 tab 09/05/20 05/12/21 Rx tablet Restasis 0.4 ml OU BID #10 ea 10/25/20 05/12/21 Rx amlodipine 5 mg PO DAILY 11/12/20 05/12/21 History fluoxetine 10 mg tablet 10 mg PO DAILY #30 tab 03/27/21 05/12/21 Rx sucralfate 1 gram tablet 1 g PO AC & HS #120 tab 04/04/21 05/12/21 Rx cholestyramine-aspartame 1 ea PO BID PRN PRN #60 ea 04/23/21 05/12/21 Rx [Prevalite] [id number] [Creon] 1 cap PO QMEALS #90 cap 04/23/21 05/12/21 Rx vancomycin 125 mg PO Q6H #40 cap 04/23/21 05/12/21 Rx ondansetron 4 mg disintegrating 4 mg PO Q8H PRN #20 tab 04/28/21 05/12/21 Rx tablet Exam Const General: cooperative, no acute distress and ill appearing chronically HENMT Head: normal to inspection Ears: hearing grossly normal bilaterally and external ears normal Face and sinus: normal facial exam Eyes General: appearance normal, both eyes and all related structures EOM: EOM intact bilaterally Neck Neck: normal visual inspection Chest Chest: normal inspection of the chest and no tenderness Resp Effort & Inspection: normal respiratory effort, able to speak in complete sentences and cough Quality of cough: actively coughing Auscultation: clear to auscultation bilaterally, no rhonchi and no wheezes Cardio Rate: tachycardic Rhythm: regular rhythm GI Inspection: normal to inspection Palpation: soft, not firm, not rigid and tender (throughout) Auscultation: hypoactive bowel sounds Back/Spine/Pelvis Thoracic/Lumbar Spine: thoracic and lumbar spine normal to inspection Skin General skin exam: no rashes or lesions noted Neuro General: patient alert, patient awake and patient oriented x3 Cognition: normal cognition Speech: speech normal Motor: muscle tone normal throughout Sensory Exam: no sensory deficits noted Extrem General: normal to inspection, full ROM and no edema Psych Appearance: grossly normal Mental Status: mental status grossly normal Speech and Movement: speech and movement normal Results Labs Result diagrams: 05/12/21 08:50 05/12/21 08:50 Labs: Laboratory Results - last 24 hr 05/12/21 05/12/21 05/12/21 08:50 08:50 08:50 WBC RBC Hgb Hct MCV MCH MCHC RDW Plt Count MPV Immature Gran % Neutrophils % Lymphocytes % Monocytes % Eosinophils % Basophils % Nucleated RBC % Absolute Neutrophils Absolute Lymphocytes Absolute Monocytes Absolute Eosinophils Absolute Basophils Sodium 141 Potassium 3.4 L Chloride 102 Carbon Dioxide 24.4 Anion Gap 14.6 H BUN 12 Creatinine 0.9 Estimated GFR/1.73 m2 >= 60.00 Glucose 170 H Calcium 9.3 Magnesium 1.3 L Total Bilirubin 1.3 H AST 63 H ALT 44 Alkaline Phosphatase 168 H Troponin I < 0.05 Total Protein 6.9 Albumin 3.2 L Lipase 104 Urine Color Urine Clarity Urine pH Ur Specific Ideal Urine Protein Urine Ketones Urine Blood Urine Nitrite Urine Bilirubin Urine Urobilinogen Ur Leukocyte Esterase Urine RBC Urine WBC Ur Epithelial Cells Urine Crystals Urine Bacteria Urine Casts Urine Mucus Urine Other Ur Culture Indicated? Urine Glucose Ethyl Alcohol COVID-19 Source SARS-CoV-2 (PCR) 05/12/21 05/12/21 05/12/21 08:50 08:50 08:55 WBC 4.28 L RBC 3.43 L Hgb 11.6 Hct 35.3 L MCV 102.9 H MCH 33.8 H MCHC 32.9 RDW 13.6 Plt Count 203 MPV 8.9 Immature Gran % 0.2 Neutrophils % 77.2 Lymphocytes % 14.0 Monocytes % 8.4 Eosinophils % 0.0 Basophils % 0.2 Nucleated RBC % 0 Absolute Neutrophils 3.30 Absolute Lymphocytes 0.60 L Absolute Monocytes 0.36 Absolute Eosinophils 0.00 Absolute Basophils 0.01 Sodium Potassium Chloride Carbon Dioxide Anion Gap BUN Creatinine Estimated GFR/1.73 m2 Glucose Calcium Magnesium Total Bilirubin AST ALT Alkaline Phosphatase Troponin I Total Protein Albumin Lipase Urine Color Urine Clarity Urine pH Ur Specific Ideal Urine Protein Urine Ketones Urine Blood Urine Nitrite Urine Bilirubin Urine Urobilinogen Ur Leukocyte Esterase Urine RBC Urine WBC Ur Epithelial Cells Urine Crystals Urine Bacteria Urine Casts Urine Mucus Urine Other Ur Culture Indicated? Urine Glucose Ethyl Alcohol < 3.0 COVID-19 Source Nasal/Nares SARS-CoV-2 (PCR) Negative 05/12/21 09:30 WBC RBC Hgb Hct MCV MCH MCHC RDW Plt Count MPV Immature Gran % Neutrophils % Lymphocytes % Monocytes % Eosinophils % Basophils % Nucleated RBC % Absolute Neutrophils Absolute Lymphocytes Absolute Monocytes Absolute Eosinophils Absolute Basophils Sodium Potassium Chloride Carbon Dioxide Anion Gap BUN Creatinine Estimated GFR/1.73 m2 Glucose Calcium Magnesium Total Bilirubin AST ALT Alkaline Phosphatase Troponin I Total Protein Albumin Lipase Urine Color Yellow Urine Clarity Sl Cloudy Urine pH 6.0 Ur Specific Ideal 1.025 Urine Protein 30 H Urine Ketones Negative Urine Blood Negative Urine Nitrite Positive H Urine Bilirubin Negative Urine Urobilinogen 0.2 Ur Leukocyte Esterase Trace H Urine RBC 3-5 H Urine WBC 5-10 Ur Epithelial Cells Negative Urine Crystals Negative Urine Bacteria Many Urine Casts Negative Urine Mucus Negative Urine Other Negative Ur Culture Indicated? Yes Urine Glucose Negative Ethyl Alcohol COVID-19 Source SARS-CoV-2 (PCR) Last Vital Signs Temp 36.6 C 05/12/21 13:33 Pulse 113 H 05/12/21 13:30 Resp 26 H 05/12/21 13:31 BP 177/81 H 05/12/21 13:30 Pulse Ox 98 05/12/21 13:31
[2021-05-12] MEDS: LORazepam 2 MG/ML VIAL 0.5 MG IVP ×2 (14:38→20:57)
[2021-05-12] MEDS: Lactated Ringers 1,000 ML 125 ML IV ×2 (15:46→23:24)
[2021-05-12] MEDS: Sucralfate 1 GM TAB PO ×2 (15:47→20:57)
[2021-05-12] MEDS: Metoprolol 50 MG TAB PO (20:00)
[2021-05-12] MEDS: Creon, Lipase 6,000 CAPCR 1 CAP PO (20:00)
[2021-05-12] MEDS: Pantoprazole 40 MG VIAL IVP (20:01)
[2021-05-13] MEDS: Ondansetron 4 MG/2 ML VIAL IVP (01:01)
[2021-05-13 04:07] VITALS: RESP 2
[2021-05-13] MEDS: Albuterol/Ipratropium 3 ML UPD VIAL IH (04:07)
[2021-05-13] MEDS: LORazepam 2 MG/ML VIAL 0.5 MG IVP (04:07)
[2021-05-13 04:31] VITALS: BP 165/91; PULSE 83; RESP 19; TEMP 37.1; O2SAT 96
[2021-05-13 04:37] VITALS: RESP 1
[2021-05-13 04:38] VITALS: O2SAT 96
[2021-05-13 07:08] LABS: Abs Immature Grans 0.01 10^3/uL (0.0-0.06); Absolute Basophil Count 0.01 10^3/uL (0.0-0.2); Absolute Lymphocyte Count 0.79 10^3/uL (1.2-3.4); Absolute Monocyte Count 0.41 10^3/uL (0.1-0.8); Absolute Neutrophil Count 1.88 10^3/uL (1.2-6.7); Basophils % 0.3; HCT 30.8 % (36.0-46.0); HGB 10.1 g/dL (11.2-15.7); Immature Grans % 0.3; Lymphocytes % 25.5; MCH 34.5 pg (27.0-33.0); MCHC 32.8 % (32.0-36.0); MCV 105.1 fL (80-95); MPV 9.4 fL (8.0-11.0); Monocytes % 13.2; Neutrophils % 60.7; Nucleated RBC 0 %; Platelet Count 155 10^3/uL (130-400); RBC 2.93 10^6/uL (3.93-5.22); RDW 13.4 % (11.7-14.6); RDW-SD 52.3 fL
[2021-05-13 07:23] LABS: Anion Gap 7.4 mmol/L (3-11); BUN 6 mg/dL (7-18); CO2 28.6 mmol/L (21.0-32.0); CREATININE 0.8 mg/dL (0.55-1.02); Calcium 8.5 mg/dL (8.5-10.1); Chloride 102 mmol/L (98-107); Glucose 127 mg/dL (74-106); Magnesium 1.3 mg/dL (1.8-2.4); Potassium 3.1 mmol/L (3.5-5.1); Sodium 138 mmol/L (136-145)
[2021-05-13 07:34] VITALS: BP 180/81; PULSE 94; RESP 18; TEMP 37; O2SAT 94
[2021-05-13] MEDS: Creon, Lipase 6,000 CAPCR 1 CAP PO ×2 (07:41→11:12)
[2021-05-13] MEDS: Sucralfate 1 GM TAB PO ×2 (07:41→11:12)
[2021-05-13] MEDS: FLUoxetine 10 MG TAB PO (07:41)
[2021-05-13] MEDS: Multivitamin TAB 1 TAB PO (07:41)
[2021-05-13] MEDS: Thiamine 100 MG TAB PO (07:41)
[2021-05-13] MEDS: amLODIPine 5 MG TAB PO (07:41)
[2021-05-13] MEDS: Metoprolol 50 MG TAB PO (07:42)
[2021-05-13] MEDS: Folic Acid 1 MG TAB PO (07:42)
[2021-05-13] MEDS: Pantoprazole 40 MG VIAL IVP (07:42)
[2021-05-13] MEDS: Normal Saline Flush 10 ML SYR (07:43)
[2021-05-13] MEDS: Lactated Ringers 1,000 ML 125 ML IV (07:43)
[2021-05-13] MEDS: Magnesium Oxide 400 MG TAB 800 MG PO (09:10)
[2021-05-13] MEDS: Potassium Chloride 20 MEQ TABCR 40 MEQ PO (09:11)
[2021-05-13] MEDS: MAGNESIUM SULFATE 4 GM/100 ML BAG IVPB (09:11)
--- NOTE | 2021-05-13 10:49 | W.PM.DS.N ---
Date of service: 05/13/21 Time of Service: 10:49 DS: Diagnosis Discharge Diagnosis (1) Nausea and vomiting in adult: Start date: 05/13/21 Start time: 10:49 Status: Resolved Asessment and Plan: Patient has not had any n/v since admission. Therefore she can be discharged home (2) Alcohol abuse: Start date: 05/13/21 Start time: 10:58 Status: Chronic Asessment and Plan: Ethyl alcohol level was negative on admission. States she has not drank in days (3) Hypomagnesemia: Start date: 05/13/21 Start time: 10:59 Status: Chronic Asessment and Plan: Repleted with both PO and IV (4) Pancreatitis: Start date: 05/13/21 Start time: 10:59 Status: Chronic Asessment and Plan: She has had this in the past however this visit does not appear to have pancreatitis (5) C. difficile colitis: Start date: 05/13/21 Start time: 11:00 Status: Resolved Asessment and Plan: She was recently treated with oral vanco and has not had diarrhea since (6) Hypokalemia: Start date: 05/13/21 Start time: 11:01 Status: Acute Asessment and Plan: Repleted with PO potassium discussed with Dr. Joy Discharge Plan Disposition Patient Disposition: HOME W/HOME HEALTH SERVICE Condition: Stable Discharge Details Reason For Visit: Nausea and Vomiting Admit Date/Time: 05/12/21 14:01 Admit Provider: Aydin Joy Attending Provider: Aydin Joy Primary Care Provider: Lavelle Galindo Hospital Course Hospital Course: this is a 76-year-old female well-known to [facility], recently admitted here over 2 weeks ago for hyperemesis in the setting of alcohol use and noted to have pancreatitis and C. difficile colitis, sent home on oral vancomycin presents for complaint of coughing and abdominal pain. Reports last alcoholic drink was 4 days ago. Heart rate was in the 130s. Blood pressure was hypertensive at 183/102. She is oriented x3 and does not appear to be in acute alcohol withdrawal, she does not normally withdrawal. Work up in the ED consistent with dehydration, no evidence of acute pancreatitis or colitis. Her cxr with no evidence of pneumonia. she was given IV fluids and antiemetics but still not feeling well enough to be safely discharged to home. hospitalist was asked to admit her to observation overnight for fluids and further monitoring. Today she is feeling better. No vomiting, she was hydrated overnight, anion gap normalized. She appears hydrated. No signs of withdrawal. She was hypokalemic with hypomagnesium. Both repleted with oral and mag repleted with IV as well. She was shown to have nitrates in her urine. Last UTI culture grew e. coli sensitive to ceftriaxone, this visit urine cx growing gram negative rob will treat with 5 day course of cefpdoxime. She is being discharged home with resumption of HH services. F/u with PCP as needed. Home Meds and New Rx's Prescriptions: New cefpodoxime 200 mg Tablet 100 mg PO Q12H Qty: 9 RF: 0 potassium chloride [Klor-Con M20] 20 mEq Tablet,Er Particles/Crystals 40 meq PO ONCE Qty: 1 RF: 0 Continued Xiidra 5 % dropperette 1 drp ophthalmic (eye) BID RF: 0 ondansetron 4 mg tablet,disintegrating 4 mg PO Q8H PRN (Reason: nausea and vomiting) Qty: 20 RF: 0 Ensure Active High Protein Liquid 414 ml PO DAILY Qty: 81757 RF: 11 ipratropium-albuterol 0.5 mg-3 mg(2.5 mg base)/3 mL solution for nebulization 3 ml IH QID PRN (Reason: shortness of breath) Qty: 90 RF: 3 metoprolol tartrate 50 mg tablet 50 mg PO BID Qty: 180 RF: 3 multivitamin [Multiple Vitamins] Tablet 1 tab PO DAILY Qty: 90 RF: 3 thiamine HCl (vitamin B1) 100 mg tablet 100 mg PO DAILY Qty: 90 RF: 3 folic acid 1 mg tablet 1 mg PO DAILY Qty: 90 RF: 3 fluoxetine 10 mg tablet 10 mg PO DAILY Qty: 30 RF: 1 sucralfate 1 gram tablet 1 g PO AC & HS Qty: 120 RF: 11 Refresh Plus 0.5 % Dropperette 1 drp OU Q4H WHILE AWAKE Qty: 30 RF: 0 Restasis 0.05 % Dropperette 0.4 ml OU BID Qty: 10 RF: 0 amlodipine 5 mg tablet 5 mg PO DAILY RF: 0 cholestyramine-aspartame [Prevalite] 4 gram Powder In Packet 1 ea PO BID PRN PRNQty: 60 RF: 0 Creon 6,000-19,000 -30,000 unit Capsule,Delayed Release(Dr/Ec) 1 cap PO QMEALS Qty: 90 RF: 0 Discontinued vancomycin 125 mg Capsule 125 mg PO Q6H Qty: 40 RF: 0 Discharge Instructions Instructions: Dehydration (DC), Hypokalemia (DC), Hypomagnesemia (DC) Additional Instructions: STOP DRINKING ALCOHOL Follow up with PCP as needed. Stand Alone Forms: Nursing Discharge Form Activity:: Activity as Tolerated Equipment/Supplies:: No Equipment Needed Diet:: As Tolerated Discharge Orders Discharge Orders: Discharge Order (Routine); Ordered 05/13/21 Ordered By: Pat Navarro DS: Summary Time Spent with Patient providing and/or coordinating discharge services: Less than 30 minutes Status at Discharge Functional status at discharge: uses cane/walker Overall status at discharge: patient is back to baseline Mental Status: mental status grossly normal Speech and Movement: speech and movement normal Mood: congruent mood Affect: normal affect Exam Const General: cooperative, no acute distress and ill appearing chronically HENMT Head: normal to inspection Ears: hearing grossly normal bilaterally and external ears normal Face and sinus: normal facial exam Eyes General: appearance normal, both eyes and all related structures EOM: EOM intact bilaterally Neck Neck: normal visual inspection Chest Chest: normal inspection of the chest and no tenderness Resp Effort & Inspection: normal respiratory effort and able to speak in complete sentences Auscultation: clear to auscultation bilaterally, no rhonchi and no wheezes Cardio Rate: regular rate Rhythm: regular rhythm Heart Sounds: S1 normal GI Inspection: normal to inspection Palpation: soft, not firm, not rigid and tender (throughout) Auscultation: hypoactive bowel sounds Back/Spine/Pelvis Thoracic/Lumbar Spine: thoracic and lumbar spine normal to inspection Skin General skin exam: no rashes or lesions noted Neuro General: patient alert, patient awake and patient oriented x3 Cognition: normal cognition Speech: speech normal Motor: muscle tone normal throughout Sensory Exam: no sensory deficits noted Extrem General: normal to inspection, full ROM and no edema Psych Appearance: grossly normal Mental Status: mental status grossly normal Speech and Movement: speech and movement normal Mood: congruent mood Affect: normal affect DS: Data Vitals/I&O Vitals and I&O: Vital Signs Temperature 37.0 C 05/13/21 07:34 Temperature Source Tympanic 05/13/21 07:34 Pulse 94 H 05/13/21 07:34 Pulse Rhythm Regular 05/13/21 04:38 Pulse 106 H 05/12/21 14:31 Respiratory Rate 18 05/13/21 07:34 Respiratory Effort Non-Labored 05/13/21 04:38 Respiratory Depth Normal 05/13/21 04:38 Respiratory Pattern Normal 05/13/21 04:38 Blood Pressure 180/81 H 05/13/21 07:34 Blood Pressure Mean 109 05/12/21 14:30 Blood Pressure Position Supine 05/12/21 08:59 Pulse Oximetry 94 05/13/21 07:34 Oxygen Delivery Method Room Air 05/13/21 07:34 Oxygen Flow Rate 0 05/13/21 07:34 Pain Level 0 05/13/21 04:31 Intake & Output 05/12/21 05/12/21 05/13/21 11:59 23:59 11:59 Intake Total 1050 / 2214.167 1164.167 / 2214.167 1110 / 1110 Output Total 300 / 300 Balance 1050 / 1914.167 864.167 / 0213.713 3246 / 1110 Weight 61.9 kg 61.9 kg Intake: IV 1050 / 2114.167 1064.167 / 2114.167 1010 / 1010 Oral 100 / 100 100 / 100 Output: Urine 300 / 300 Other: Urine Color Yellow Yellow Urine Appearance Clear Clear Urine Odor Normal Strong Comment wet diaper x 1 Patient had soaked bed with very large amount of urine. NORMA Farley has been made aware. Stool Size Small Large Stool Characteristics Soft Formed Brown Hard Brown Voiding Methods Diaper Diaper Incontinent Data Completed and Pending Completed studies during hospitalization [Text1]: Exam(s) XR PORTABLE CHEST AP EXAM: XR PORTABLE CHEST AP CLINICAL HISTORY: cough, sob, r/o acute disease TECHNIQUE: 2D digital imaging was performed. COMPARISON: CT CT CHEST/ABD/PEL WO from 02/18/[address] CHEST/ABD/PEL WO from 02/18/[address] ABDOMEN PELVIS WO from 04/15/[address] ABDOMEN PELVIS WO from 04/15/2021 CR XR PORTABLE CHEST AP from 04/16/2021 FINDINGS: LUNGS: Clear. No pneumothorax or pleural effusion. Chronic blunting at the left costophrenic angle. HEART: Normal. MEDIASTINUM: Normal. BONES: Old bilateral rib fractures.. Degenerative changes spine and shoulders. IMPRESSION: No acute pulmonary findings. Labs on day of discharge: Labs from last 24 hours 05/13/21 05/13/21 05/13/21 06:34 06:34 06:34 WBC 3.10 L RBC 2.93 L Hgb 10.1 L Hct 30.8 L MCV 105.1 H MCH 34.5 H MCHC 32.8 RDW 13.4 Plt Count 155 MPV 9.4 Immature Gran % 0.3 Neutrophils % 60.7 Lymphocytes % 25.5 Monocytes % 13.2 Eosinophils % 0.0 Basophils % 0.3 Nucleated RBC % 0 Absolute Neutrophils 1.88 Absolute Lymphocytes 0.79 L Absolute Monocytes 0.41 Absolute Eosinophils 0.00 Absolute Basophils 0.01 Sodium 138 Potassium 3.1 L Chloride 102 Carbon Dioxide 28.6 Anion Gap 7.4 BUN 6 L Creatinine 0.8 Estimated GFR/1.73 m2 >= 60.00 Glucose 127 H Calcium 8.5 Magnesium 1.3 L Preliminary micro results at discharge 05/12/21 09:30 Urine Culture - Preliminary Urine - Reflex from Ua Gram Negative Rob Gram Positive Lashonda,Mixed Gram Negative Lashonda,Mixed PFSH Medical History Acute alcoholism Acute UTI Adjustment disorder with depressed mood AMBER (acute kidney injury) Alcohol abuse Alcohol intoxication Alcohol intoxication Alcoholic gastritis without bleeding Alcoholic ketosis Allergic rhinitis Anemia Back pain, chronic Blunt head trauma Blunt trauma of multiple sites of trunk Calcific tendinitis of left shoulder CAP (community acquired pneumonia) Cataract (11/07/15) Cervical radicular pain neck pain and DJD [facility] clinic Cervical strain 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) pls refrain from alcohol Chronic alcoholism she will not stop drinking unless she checks with me, so that we can help her avert withdrawal I do not think she is capable on her own--she would need placement to achieve required goal of 3 months of sobriety Chronic diarrhea Closed displaced fracture of proximal phalanx of right index finger with routine healing (06/03/17) Closed right humeral fracture Contusion of left little finger Corneal ulcer, right (~08/23/18) 08/23/18; [facility] Dehydration Depression Diarrhea Difficult intravenous access Multiple IV attempts, usually requires ultrasound placement. Discharge planning issues DVT prophylaxis Dystrophic nail Elev transaminase/LDH due to alcohol Epigastric abdominal pain Facial fracture due to fall Facial laceration Fall as cause of accidental injury at home as place of occurrence Fall at home Fracture of humerus, left, closed Genital herpes simplex recurrent gential; suppressive Valtrex GERD (gastroesophageal reflux disease) GI bleed (12/20/16) Head contusion Headache History of alcohol abuse Humerus fracture (09/12/19) Right Hyperlipidemia Hypertension Hypokalemia Hypokalemia Hypokalemia Hypomagnesemia Incidental lung nodule, greater than or equal to 8mm 1cm, spiculated, stable for many years, recommend f/u in 6 mo Intractable vomiting Leukopenia Macrocytosis (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 Multiple contusions Multiple fractures of ribs Multiple rib fractures 03/11/19 [facility] Nausea and vomiting in adult Non-cardiac chest pain (09/21/16) [facility] 09/21/16 NEGATIVE MP Osteoarthritis Osteopenia Palliative care patient (03/21/17) Pancreatitis, alcoholic, acute Peripheral edema Photophobia of right eye Pleural effusion on left 03/11/19 [facility] Pneumonia Presacral mass (~09/15/18) 09/15/18 [facility] Rash Rib pain on right side Right rib fracture Sacral mass Sciatica right, epidural injuections [facility] Suicidal ideation Tendinitis of left rotator cuff Tubular adenoma of colon (01/28/17) Urinary incontinence 01/24/13 urethral suspension and sling at [facility] [place] (bladder suspension 1991) UTI (urinary tract infection) UTI (urinary tract infection) 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 Bladder repair. Ligation of fallopian tube Repair bladder injury, simple Family History Mother No problems noted. Father , DROWNED at age 50. No problems noted. Sister Personal history of malignant neoplasm MELANOMA Sister No problems noted. Grandfather Personal history of malignant neoplasm STOMACH Grandfather Personal history of malignant neoplasm PROSTATE Grandmother Heart disease OR Acute ill-defined cerebrovascular disease Grandmother Personal history of malignant neoplasm UTERINE Aunt , OR Heart disease OR Aunt , OR Heart disease Brother No problems noted. Social History Smoking/Tobacco Use Status: Former Tobacco Use Quit Date: 08/05/20 Smoking risk assessment performed?: Yes Alcohol Intake: current Alcohol Intake frequency: 3 or more drinks per day Alcohol type: hard liquor Drug use: Never Substance use type: does not use Current gender identity: female Do you feel safe at home: Yes Do you feel safe in your relationship?: Yes Additional Social history: Pt has been binge drinking since 4am
--- NOTE | 2021-05-13 11:07 | INITIAL_ITS ---
- If Service Date Differs Date of service: 05/13/21 Time of Service: 11:07 Care Management Initial Assess REASON FOR HOSPITALIZATION:: Nausea and vomiting PAST MEDICAL HISTORY/PAST SURGICAL HISTORY:: Acute alcoholism. Acute UTI. Adjustment disorder with depressed mood. AMBER (acute kidney injury). Alcohol abuse. Alcohol intoxication. Alcohol intoxication. Alcoholic gastritis without bleeding. Alcoholic ketosis. Allergic rhinitis. Anemia. Back pain, chronic. Blunt head trauma. Blunt trauma of multiple sites of trunk. Calcific tendinitis of left shoulder. CAP (community acquired pneumonia). Cataract (11/07/15). Cervical radicular pain. neck pain and DJD. [facility]. Cervical strain. 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). pls refrain from alcohol. Chronic alcoholism. she will not stop drinking unless she checks with me, so that we can help her avert withdrawal. I do not think she is capable on her own--she would need placement to achieve required goal of 3 months of sobriety. Chronic diarrhea. Closed displaced fracture of proximal phalanx of right index finger with routine healing (06/03/17). Closed right humeral fracture. Contusion of left little finger. Corneal ulcer, right (~08/23/18). 08/23/18; [facility]. Dehydration. Depression. Diarrhea. Discharge planning issues. DVT prophylaxis. Dystrophic nail. Elev transaminase/LDH. due to alcohol. Epigastric abdominal pain. Facial fracture due to fall. Facial laceration. Fall as cause of accidental injury at home as place of occurrence. Fall at home. Fracture of humerus, left, closed. Genital herpes simplex. recurrent gential; suppressive Valtrex. GERD (gastroesophageal reflux disease). GI bleed (12/20/16). Head contusion. Headache. History of alcohol abuse. Humerus fracture (09/12/19). Right. Hyperlipidemia. Hypertension. Hypok alemia. Hypokalemia. Hypokalemia. Hypomagnesemia. Incidental lung nodule, greater than or equal to 8mm. 1cm, spiculated, stable for many years, recommend f/u in 6 mo. Intractable vomiting. Leukopenia. Macrocytosis (09/26/14). due to alcohol. Multiple contusions. Multiple fractures of ribs. Multiple rib fractures. [facility] Nausea and vomiting in adult. Non-cardiac chest pain (09/21/16). [facility] 09/21/16 NEGATIVE MP. Osteoarthritis. Osteopenia. Palliative care patient (03/21/17). Pancreatitis, alcoholic, acute. Peripheral edema. Photophobia of right eye. Pleural effusion on left. 03/11/19 [facility]. Pneumonia. 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 09/15/18 [facility]. Rash. Rib pain on right side. Right rib fracture. Sacral mass. Sciatica. right, epidural injuections. [facility]. Suicidal ideation. Tendinitis of left rotator cuff. Tubular adenoma of colon (01/28/17). Urinary incontinence. 01/24/13 urethral suspension and sling at [facility]. (bladder suspension 1991). UTI (urinary tract infection). UTI (urinary tract infection). Vision loss of right eye. 08/17/18;[facility]. Wernicke encephalopathy. Surgical History. Bladder Surgery. suspension. Colonoscopy - MAC (01/28/17). EGD - MAC (12/20/16). History of bilateral ligation of fallopian tubes. History of Surgical Procedure. a. Bladder repair. Ligation of fallopian tube. Repair bladder injury, simple PREVIOUS FUNCTIONAL STATUS/SOCIAL/FAMILY SUPPORTS:: Leticia lives alone with her dog and 4 cats in her own home in [place], [place]. She reports she has a sister who takes care of her pet while she is here. Leticia also has a caregiver, Armida, who comes in four times a week for two hours a day. Leticia shares her son Seth is her DPOA. CURRENT FUNCTIONAL STATUS:: Leticia was resting in her chair when CM met with her. She reported that she is not feeling well today. She appeared alert and oriented and engaged in conversation with CM although she did not make eye contact. Leticia is anticipating being discharged this afternoon and is going to use this time to try to sleep as she hasn't been sleeping well at home. CM will continue to follow. ADVANCE DIRECTIVES:: DNR/COLST Has patient been provided with info about the portal/API?: Yes Did the patient sign up for the portal?: Yes CODE STATUS:: DNR/DNI INSURANCE COVERAGE / FINANCIAL ISSUES:: [facility] PPO ([employer]) CURRENT HOME/COMMUNITY SERVICES/EQUIPMENT:: Leticia owns a walker, a cane, and a toilet seat riser. She has a caregiver four days a week for two hours per day. She currently has HH SN, OT. PRIMARY CARE PHYSICIAN:: Dr. Galindo POTENTIAL DISCHARGE NEEDS:: [facility] transportation, follow up with PCP and discharge plan of care. PATIENT/FAMILY EDUCATION NEEDS:: Review of discharge instructions, medications, follow up plan, limitations,Ask Me Three TRANSPORTATION:: Via [facility] private vehicle PLAN:: Leticia will likely be discharged home with a resumption of HH services when medically cleared by MD. She will follow up with her community providers and plan of care. Leticia will transport via [facility] coordinated by CM. CM will continue to support Leticia and her discharge planning needs.
[2021-05-13] MEDS: Cefpodoxime 200 MG TAB 100 MG PO (11:12)
--- NOTE | 2021-05-13 12:34 | PDOC.CMDIS ---
- If Service Date Differs Date of service: 05/13/21 Time of Service: 12:34 LACE Index Scoring Tool - Questions: Length of Stay (in days): 1 Acuity (Admit via E.D.?): Yes Comorbidities: Liver or Renal Disease E.D. Visits: 21 - Answers: Total Score: 13 Risk of Readmission: High Risk Care Management Discharge Reason for Hospitalization: Nausea and vomiting Discharge Plan: Leticia will be discharged home via [facility] with resumption of HH RN, OT and PT. She will follow up with her PCP and discharge plan of care. Patient/Family Education Needs: Review discharge instructions regarding activity levels and medications, discussion of self care needs including ask me three and goals of care. Services Needed at Discharge: Home Delivered Meals (MOW), Home Health Care Services (Resume HH RN, OT, PT), Transportation ([facility])
--- NOTE | 2021-05-13 14:21 | PCNE_ITS ---
Date of service: 05/13/21 Time of Service: 12:21 History of Present Illness History of Present Illness Chief Complaint: NAusea Narrative: Patient is a 76-year-old woman with multiple past medical admissions for alcoholism, nausea, and dehydration, fractures. She came in yesterday because she said she felt she needed fluids. Today she states that she feels better. She does still have some nausea and has a emesis bag near her. She was quite happy that she has been having less alcohol. She says she is doing very good with abstinence, although not perfect. Her children are taking care of her animals while she is hospitalized. Her main objective is to leave as soon as possible. I have known Leticia for many years. I been following her with palliative care for several years across multiple admissions, home visits, and visits to the palliative office. She seems much more together today than she has in past admissions Consults Consult date: 05/13/21 Requesting physician: Aydin Jyo Assessment and Plan Assessment and plan (1) Hypokalemia: Status: Acute (2) Nausea and vomiting in adult: Status: Resolved (3) Dehydration: Status: Resolved (4) Palliative care patient: Status: Acute Assessment and plan: Leticia is to struggle with her alcoholism. She is proud of herself for drinking less, I think this is a good sign. She appears ready to go home and at this time does not seem nauseous or weak. I will continue to follow her outpatient. She has received potassium and magnesium while inpatient as well as hydration. CODE STATUS she continues to be comfortable with the DNR/DNI designation for her CODE STATUS Review of Systems Narrative: She states that she is nauseated, but she has been bringing up a lot of phlegm. Sometimes it is difficult for her to breathe although it is better. No diarrhea or constipation. No chest pain. She has not taken any recent falls [facility] Medical History Acute alcoholism Acute UTI Adjustment disorder with depressed mood AMBER (acute kidney injury) Alcohol abuse Alcohol intoxication Alcohol intoxication Alcoholic gastritis without bleeding Alcoholic ketosis Allergic rhinitis Anemia Back pain, chronic Blunt head trauma Blunt trauma of multiple sites of trunk Calcific tendinitis of left shoulder CAP (community acquired pneumonia) Cataract (11/07/15) Cervical radicular pain neck pain and DJD [facility] Cervical strain 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) pls refrain from alcohol Chronic alcoholism she will not stop drinking unless she checks with me, so that we can help her avert withdrawal I do not think she is capable on her own--she would need placement to achieve required goal of 3 months of sobriety Chronic diarrhea Closed displaced fracture of proximal phalanx of right index finger with routine healing (06/03/17) Closed right humeral fracture Contusion of left little finger Corneal ulcer, right (~08/23/18) 08/23/18; [facility] [place]- Dehydration Depression Diarrhea Difficult intravenous access Multiple IV attempts, usually requires ultrasound placement. Discharge planning issues DVT prophylaxis Dystrophic nail Elev transaminase/LDH due to alcohol Epigastric abdominal pain Facial fracture due to fall Facial laceration Fall as cause of accidental injury at home as place of occurrence Fall at home Fracture of humerus, left, closed Genital herpes simplex recurrent gential; suppressive Valtrex GERD (gastroesophageal reflux disease) GI bleed (12/20/16) Head contusion Headache History of alcohol abuse Humerus fracture (09/12/19) Right Hyperlipidemia Hypertension Hypokalemia Hypokalemia Hypokalemia Hypomagnesemia Incidental lung nodule, greater than or equal to 8mm 1cm, spiculated, stable for many years, recommend f/u in 6 mo Intractable vomiting Leukopenia Macrocytosis (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 Multiple contusions Multiple fractures of ribs Multiple rib fractures 03/11/19 [facility] Nausea and vomiting in adult Non-cardiac chest pain (09/21/16) [facility] [place] Osteoarthritis Osteopenia Palliative care patient (03/21/17) Pancreatitis, alcoholic, acute Peripheral edema Photophobia of right eye Pleural effusion on left 03/11/19 [facility] Pneumonia Presacral mass (~09/15/18) 09/15/18 [facility] Rash Rib pain on right side Right rib fracture Sacral mass Sciatica right, epidural injuections [facility] Suicidal ideation Tendinitis of left rotator cuff Tubular adenoma of colon (01/28/17) Urinary incontinence 01/24/13 [place]ral suspension [place] [facility] [place] UTI (urinary tract infection) UTI (urinary tract infection) 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 Bladder repair. Ligation of fallopian tube Repair bladder injury, simple Family History Mother No problems noted. Father , DROWNED at age 50. No problems noted. Sister Personal history of malignant neoplasm MELANOMA Sister No problems noted. Grandfather Personal history of malignant neoplasm STOMACH Grandfather Personal history of malignant neoplasm PROSTATE Grandmother Heart disease [place] Acute ill-defined cerebrovascular disease Grandmother Personal history of malignant neoplasm UTERINE Aunt , [place] Heart disease [place] Aunt , [place] Heart disease Brother No problems noted. Social History Smoking/Tobacco Use Status: Former Tobacco Use Quit Date: 08/05/20 Smoking risk assessment performed?: Yes Alcohol Intake: current Alcohol Intake frequency: 3 or more drinks per day Alcohol type: hard liquor Drug use: Never Substance use type: does not use Current gender identity: female Do you feel safe at home: Yes Do you feel safe in your relationship?: Yes Additional Social history: Pt has been binge drinking since 4am Exam Narrative Exam Narrative: Leticia looks really good. She is awake alert and answering my questions completely. She does not appear anxious. Resp Effort & Inspection: normal respiratory effort and able to speak in complete sentences Auscultation: clear to auscultation bilaterally Cardio Rate: regular rate Rhythm: regular rhythm GI Palpation: soft and no hepatosplenomegaly Percussion: normal to percussion Auscultation: normal bowel sounds Rectal Exam - female: deferred Other: With distraction she had absolutely no sign of any abdominal pain Results Last Vital Signs Temp 98.6 F 05/13/21 07:34 Pulse 94 H 05/13/21 07:34 Resp 18 05/13/21 07:34 BP 180/81 H 05/13/21 07:34 Pulse Ox 94 05/13/21 07:34 Labs Result diagrams: 05/13/21 06:34 05/13/21 06:34 Labs: Laboratory Results - last 24 hr 05/13/21 05/13/21 05/13/21 06:34 06:34 06:34 WBC 3.10 L RBC 2.93 L Hgb 10.1 L Hct 30.8 L MCV 105.1 H MCH 34.5 H MCHC 32.8 RDW 13.4 Plt Count 155 MPV 9.4 Immature Gran % 0.3 Neutrophils % 60.7 Lymphocytes % 25.5 Monocytes % 13.2 Eosinophils % 0.0 Basophils % 0.3 Nucleated RBC % 0 Absolute Neutrophils 1.88 Absolute Lymphocytes 0.79 L Absolute Monocytes 0.41 Absolute Eosinophils 0.00 Absolute Basophils 0.01 Sodium 138 Potassium 3.1 L Chloride 102 Carbon Dioxide 28.6 Anion Gap 7.4 BUN 6 L Creatinine 0.8 Estimated GFR/1.73 m2 >= 60.00 Glucose 127 H Calcium 8.5 Magnesium 1.3 L
== END 2021-05-13 13:11 | disposition home health service (06) ==
LOC: ER 15:06 → MS 15:10
PROVIDERS: Nurse Practitioner Acute Care; Admitting Provider Family Medicine; Emergency Provider Physician Assistant; PCP Family Medicine; Visit Provider Family Medicine
DX: E86.0 Dehydration (principal); F43.21 Adjustment disorder with depressed mood; E87.6 Hypokalemia; E83.42 Hypomagnesemia; K29.20 Alcoholic gastritis without bleeding; D64.9 Anemia, unspecified; G89.29 Other chronic pain; M54.9 Dorsalgia, unspecified; F10.20 Alcohol dependence, uncomplicated; K21.9 Gastro-esophageal reflux disease without esophagitis; E78.5 Hyperlipidemia, unspecified; I10 Essential (primary) hypertension; Z20.822 Contact with and (suspected) exposure to COVID-19
CPT/HCPCS: 36415; 80048; 80053; 83690; 87635; 93005; 96361; 96365; 96366; 96367; 96368; 96375; 99285; 71045; 80320; 81003; 81015; 83735; 84484; 85025; 87086; 93010; 99217; 99220; G0378; J2060; J2405; J3475; J3480; J3490; J7620

== ENCOUNTER 2021-05-28 18:57 | Emergency (ER) | payer MEDICARE, OTHER, SELFPAY ==
[2021-05-28] VITALS (42 sets, daily range): BP systolic 85–182; BP diastolic 47–113; PULSE 95–119; RESP 14–28; TEMP 36.7; O2SAT 95–99
--- NOTE | 2021-05-28 19:00 | RT.EKG_ITS ---
APPROVED REPORT Exam: Resting ECG Reason for Exam: chest pain Patient Location: E HR:102 bpm ECG Measurements Heart Rate 102 AXIS NC 187 P 44 QRSd 87 QRS -26 QT 377 T -15 QTc 492 Conclusion Sinus tachycardia...rate> 99 Inferior infarct, old...Q >35mS, II III aVF
--- NOTE | 2021-05-28 19:34 | W.ED.GENAD ---
Discharge Plan Disposition Patient Disposition: HOME Condition: Improving Discharge Details Clinical Impression: Nausea and vomiting, Alcohol abuse, Hypomagnesemia Primary Care Provider: Lavelle Galindo ED Provider: Wes Dc [place] Head Meds and New Rx's Prescriptions: Continued Xiidra 5 % dropperette 1 drp ophthalmic (eye) BID RF: 0 ondansetron 4 mg tablet,disintegrating 4 mg PO Q8H PRN (Reason: nausea and vomiting) Qty: 20 RF: 0 Ensure Active High Protein Liquid 414 ml PO DAILY Qty: 11383 RF: 11 ipratropium-albuterol 0.5 mg-3 mg(2.5 mg base)/3 mL solution for nebulization 3 ml IH QID PRN (Reason: shortness of breath) Qty: 90 RF: 3 metoprolol tartrate 50 mg tablet 50 mg PO BID Qty: 180 RF: 3 multivitamin [Multiple Vitamins] Tablet 1 tab PO DAILY Qty: 90 RF: 3 thiamine HCl (vitamin B1) 100 mg tablet 100 mg PO DAILY Qty: 90 RF: 3 folic acid 1 mg tablet 1 mg PO DAILY Qty: 90 RF: 3 fluoxetine 10 mg tablet 10 mg PO DAILY Qty: 30 RF: 1 sucralfate 1 gram tablet 1 g PO AC & HS Qty: 120 RF: 11 Refresh Plus 0.5 % Dropperette 1 drp OU Q4H WHILE AWAKE Qty: 30 RF: 0 Restasis 0.05 % Dropperette 0.4 ml OU BID Qty: 10 RF: 0 cefpodoxime 200 mg Tablet 100 mg PO Q12H Qty: 9 RF: 0 potassium chloride [Klor-Con M20] 20 mEq Tablet,Er Particles/Crystals 40 meq PO ONCE Qty: 1 RF: 0 amlodipine 5 mg tablet 5 mg PO DAILY RF: 0 cholestyramine-aspartame [Prevalite] 4 gram Powder In Packet 1 ea PO BID PRN PRNQty: 60 RF: 0 Creon 6,000-19,000 -30,000 unit Capsule,Delayed Release(Dr/Ec) 1 cap PO QMEALS Qty: 90 RF: 0 Discharge Instructions Instructions: Abuse of Alcohol (ED), Acute Nausea and Vomiting (ED) Additional Instructions: Avoid alcohol as this will only exacerbate your symptoms. Clear liquid/bland diet for the next day or 2. Medications as previously prescribed. Follow-up with primary care next week. Return to ED for worsening symptoms, inability to tolerate oral, other concerns. Referrals: Lavelle Galindo [Primary Care Provider] - Medical Decision Making <Blaze Mccarthy MD - Last Filed: 05/28/21 19:41> 76 yo female with hx of alcohol abuse who states she last had alcohol around 3pm comes in with chief complaint of n/v starting tonight. She states when she had vomit she had chest discomfort denies any chest pain now and has no abdominal tenderness. She has no fevers or chills. On exam she is sleeping but easily awakens and has clear speech with no focal deficits. Soft nontender abdomen, clear lungs, perrl. Suspect her symptoms are related to her alcohol use vs withdrawal, will obtain labs to evaluate for electrolyte abnormalities. She has no abdominal tenderness so do not feel she requires ct abdomen/pelvis. NO evidence of dvt on exam and no hypoxia or pleuritic pain so doubt PE and dissection less likely given lack of upper back pain and normal vascular exam. Will obtain ecg and troponin though her pain seems likely gastritis vs gerd since it was associated with vomitting she is stable, signed out to oncoming provide pending lab results, and reassessment Differential Diagnosis Differential Diagnosis: alcohol withdrawal, gastroenteritis, gerd Medical Records Medical records reviewed: Yes I reviewed the patient's medical records. ECG Data Attestation: I personally reviewed and interpreted this ECG (s) as follows: Prior ECG tracings: available for review Interpretation: sinus rhythm, rate of 90, no acute st t wave ischemic findings <Wes Dc MD - Last Filed: 05/28/21 23:12> Patient signed out to me pending reevaluation, repeat EKG/troponin. Patient at this time awake and alert and baseline from my previous interactions with her. Vital signs have remained stable. She is tolerating p.o. Her liver function elevation is baseline. Lipase is normal. Elevated anion gap and low bicarb is par for course with this patient once she starts vomiting. She has received fluids, IV magnesium and is tolerating p.o. She has been up and ambulated in the department. Repeat EKG and troponin remain unchanged. No indication for admission. Plan for discharge home. Lab Data Lab results reviewed: Yes I reviewed the patient's lab results. ECG Data Attestation: I personally reviewed and interpreted this ECG (s) as follows: Prior ECG tracings: available for review Interpretation: see EKG HPI <Blaze Mccarthy MD - Last Filed: 05/28/21 19:41> General Mode of arrival: EMS. Date/Time Provider Initiated Documentation: 05/28/21 19:14. Limitations to Documentation: no limitations. Information obtained by: patient. History of Present Illness 76 year old F presents to the emergency department with the chief complaint of nausea/vomit, described as moderate, and it has been constant. No relieving factors improve symptom(s), No exacerbating factors reported . Patient did receive the following treatments prior to arrival, none Related Data Home Medications Medication Instructions Recorded Confirmed Refresh Plus 1 drp OU Q4H WHILE AWAKE #30 each 06/20/19 05/28/21 food supplemt, lactose-reduced 414 ml PO DAILY #91336 ml 08/24/19 05/28/21 ipratropium 0.5 mg-albuterol 3 mg 3 ml IH QID PRN #90 ml 01/04/20 05/28/21 (2.5 mg base)/3 mL nebulization soln lifitegrast 5 % eye drops in a 1 drp OPHTHALMIC (EYE) BID 08/05/20 05/28/21 dropperette folic acid 1 mg tablet 1 mg PO DAILY #90 tab 09/05/20 05/28/21 metoprolol tartrate 50 mg tablet 50 mg PO BID #180 tab 09/05/20 05/28/21 multivitamin 1 tab PO DAILY #90 tab 09/05/20 05/28/21 thiamine HCl (vitamin B1) 100 mg 100 mg PO DAILY #90 tab 09/05/20 05/28/21 tablet Restasis 0.4 ml OU BID #10 ea 10/25/20 05/28/21 amlodipine 5 mg PO DAILY 11/12/20 05/28/21 fluoxetine 10 mg tablet 10 mg PO DAILY #30 tab 03/27/21 05/28/21 sucralfate 1 gram tablet 1 g PO AC & HS #120 tab 04/04/21 05/28/21 Creon 1 cap PO QMEALS #90 cap 04/23/21 05/28/21 cholestyramine-aspartame 1 ea PO BID PRN PRN #60 ea 04/23/21 05/28/21 [Prevalite] ondansetron 4 mg disintegrating 4 mg PO Q8H PRN #20 tab 04/28/21 05/28/21 tablet cefpodoxime 100 mg PO Q12H #9 tab 05/13/21 05/28/21 potassium chloride [Klor-Con M20] 40 meq PO ONCE #1 tab 05/13/21 05/28/21 Previous Rx's Medication Instructions Recorded Refresh Plus 1 drp OU Q4H WHILE AWAKE #30 each 06/20/19 food supplemt, lactose-reduced 414 ml PO DAILY #74876 ml 08/24/19 ipratropium 0.5 mg-albuterol 3 mg 3 ml IH QID PRN #90 ml 01/04/20 (2.5 mg base)/3 mL nebulization soln folic acid 1 mg tablet 1 mg PO DAILY #90 tab 09/05/20 metoprolol tartrate 50 mg tablet 50 mg PO BID #180 tab 09/05/20 multivitamin 1 tab PO DAILY #90 tab 09/05/20 thiamine HCl (vitamin B1) 100 mg 100 mg PO DAILY #90 tab 09/05/20 tablet Restasis 0.4 ml OU BID #10 ea 10/25/20 fluoxetine 10 mg tablet 10 mg PO DAILY #30 tab 03/27/21 sucralfate 1 gram tablet 1 g PO AC & HS #120 tab 04/04/21 Creon 1 cap PO QMEALS #90 cap 04/23/21 cholestyramine-aspartame 1 ea PO BID PRN PRN #60 ea 04/23/21 [Prevalite] ondansetron 4 mg disintegrating 4 mg PO Q8H PRN #20 tab 04/28/21 tablet cefpodoxime 100 mg PO Q12H #9 tab 05/13/21 potassium chloride [Klor-Con M20] 40 meq PO ONCE #1 tab 05/13/21 Allergies Allergy/AdvReac Type Severity Reaction Status Date / Time Penicillins Allergy Mild Rash Verified 05/28/21 19:16 ramipril Allergy Unknown ITCHING Verified 05/28/21 19:16 meperidine [From Demerol] AdvReac Severe Nausea Verified 05/28/21 19:16 bupropion AdvReac Mild GI upset Verified 05/28/21 19:16 AMBER Inhibitors AdvReac Unknown COUGH Verified 05/28/21 19:16 alendronate sodium AdvReac Unknown GI Distress Verified 05/28/21 19:16 clarithromycin AdvReac Unknown intolerant Verified 05/28/21 19:16 paroxetine AdvReac Unknown Diarrhea Verified 05/28/21 19:16 General Stated Complaint: Chest Pain JORDAN: 2 Review of Systems <Blaze Mccarthy MD - Last Filed: 05/28/21 19:41> All systems reviewed & are unremarkable except as noted in HPI and below Constitutional Constitutional: Denies chills and Denies fever(s) Cardiovascular Cardiovascular: Denies dyspnea Respiratory Respiratory: Denies cough and Denies dyspnea Gastrointestinal Gastrointestinal: Denies abdominal pain Genitourinary Genitourinary: Denies dysuria Musculoskeletal Musculoskeletal: Denies joint swelling Integumentary/Breasts Skin/Breast: Denies rash PFSH <Blaze Mccarthy MD - Last Filed: 05/28/21 19:41> Medical History Acute alcoholism Acute UTI Adjustment disorder with depressed mood AMBER (acute kidney injury) Alcohol abuse Alcohol intoxication Alcohol intoxication Alcoholic gastritis without bleeding Alcoholic ketosis Allergic rhinitis Anemia Back pain, chronic Blunt head trauma Blunt trauma of multiple sites of trunk Calcific tendinitis of left shoulder CAP (community acquired pneumonia) Cataract (11/07/15) Cervical radicular pain neck pain and DJD [facility] Cervical strain 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) pls refrain from alcohol Chronic alcoholism she will not stop drinking unless she checks with me, so that we can help her avert withdrawal I do not think she is capable on her own--she would need placement to achieve required goal of 3 months of sobriety Chronic diarrhea Closed displaced fracture of proximal phalanx of right index finger with routine healing (06/03/17) Closed right humeral fracture Contusion of left little finger Corneal ulcer, right (~08/23/18) 08/23/18; [facility] Dehydration Depression Diarrhea Difficult intravenous access Multiple IV attempts, usually requires ultrasound placement. Discharge planning issues DVT prophylaxis Dystrophic nail Elev transaminase/LDH due to alcohol Epigastric abdominal pain Facial fracture due to fall Facial laceration Fall as cause of accidental injury at home as place of occurrence Fall at home Fracture of humerus, left, closed Genital herpes simplex recurrent gential; suppressive Valtrex GERD (gastroesophageal reflux disease) GI bleed (12/20/16) Head contusion Headache History of alcohol abuse Humerus fracture (09/12/19) Right Hyperlipidemia Hypertension Hypokalemia Hypokalemia Hypokalemia Hypomagnesemia Incidental lung nodule, greater than or equal to 8mm 1cm, spiculated, stable for many years, recommend f/u in 6 mo Intractable vomiting Leukopenia Macrocytosis (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 Multiple contusions Multiple fractures of ribs Multiple rib fractures 03/11/19 [facility] Nausea and vomiting in adult Non-cardiac chest pain (09/21/16) [facility] [place] 09/21/16 NEGATIVE MP Osteoarthritis Osteopenia Palliative care patient (03/21/17) Pancreatitis, alcoholic, acute Peripheral edema Photophobia of right eye Pleural effusion on left 03/11/19 [facility] Pneumonia Presacral mass (~09/15/18) 09/15/18 [facility] Rash Rib pain on right side Right rib fracture Sacral mass Sciatica right, epidural injuections [facility] Suicidal ideation Tendinitis of left rotator cuff Tubular adenoma of colon (01/28/17) Urinary incontinence 01/24/13 urethral suspension and sling at [facility] [place] (bladder suspension 1991) UTI (urinary tract infection) UTI (urinary tract infection) 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 Bladder repair. Ligation of fallopian tube Repair bladder injury, simple Family History Mother No problems noted. Father , DROWNED at age 50. No problems noted. Sister Personal history of malignant neoplasm MELANOMA Sister No problems noted. Grandfather Personal history of malignant neoplasm STOMACH Grandfather Personal history of malignant neoplasm PROSTATE Grandmother Heart disease [place] Acute ill-defined cerebrovascular disease Grandmother Personal history of malignant neoplasm UTERINE Aunt , [place] Heart disease [place] Aunt , [place] Heart disease Brother No problems noted. Social History Smoking/Tobacco Use Status: Former Tobacco Use Quit Date: 08/05/20 Smoking risk assessment performed?: Yes Alcohol Intake: current Alcohol Intake frequency: 3 or more drinks per day Alcohol type: hard liquor Drug use: Never Substance use type: does not use Current gender identity: female Do you feel safe at home: Yes Do you feel safe in your relationship?: Yes Additional Social history: Pt has been binge drinking since 4am Exam <Blaze Mccarthy MD - Last Filed: 05/28/21 19:41> Const General: no acute distress Orientation: alert HENMT Head: normal to inspection Ears: external ears normal General nose exam: external nose normal Mouth: moist mucous membranes Eyes General: appearance normal, both eyes and all related structures Neck Neck: normal visual inspection Resp Effort & Inspection: normal respiratory effort and able to speak in complete sentences Cardio Rate: regular rate GI Palpation: soft Skin General skin exam: no rashes or lesions noted Neuro General: patient alert and patient oriented x3 Extrem General: normal to inspection Psych Mental Status: mental status grossly normal Course <Blaze Mccarthy MD - Last Filed: 05/28/21 19:41> Vital Signs Vital signs: Vital Signs Temperature 36.7 C 05/28/21 19:01 Pulse 98 H 05/28/21 19:01 Respiratory Rate 18 05/28/21 19:01 Blood Pressure 178/81 H 05/28/21 19:01 Pulse Oximetry 99 05/28/21 19:01 Temperature 36.7 C 05/28/21 19:01 Temperature Source Temporal Artery Scan 05/28/21 19:01 Pulse 98 H 05/28/21 19:01 Respiratory Rate 19 05/28/21 19:04 Respiratory Effort 05/28/21 19:04 Respiratory Depth Normal 05/28/21 19:04 Respiratory Pattern Normal 05/28/21 19:04 Blood Pressure 178/81 H 05/28/21 19:01 Blood Pressure Position Sitting 05/28/21 19:01 Pulse Oximetry 99 05/28/21 19:01 Oxygen Delivery Method Room Air 05/28/21 19:01 Oxygen Flow Rate 0 05/28/21 19:01 Pain Level 6 05/28/21 19:01 Sign Out <Blaze Mccarthy MD - Last Filed: 05/28/21 19:41> Sign Out Data: Sign Out Comment: last had alcohol earlier, here with n/v and had chest pain with the n/v. Pending labs and reassessment Last updated by Blaze Mccarthy MD at 05/28/21 19:45 PAWSS <Blaze Mccarthy MD - Last Filed: 05/28/21 19:41> Have you Been Recently Intoxicated or Drunk Within the Last 30 days?: Yes Have you Ever Experienced Previous Episodes of Alcohol Withdrawal?: Yes Have you ever Experienced Withdrawal Seizures?: No Have you ever Experienced Delirium Tremens(DT)s?: Yes Have you ever undergone Alcohol Rehabilitation Treatment (i.e, inpt ot outpatient treatment programs)?: No Have you ever Experienced Blackouts?: Yes Have you ever Combined Alcohol with other Downers within the last 90 days?: No Have you ever Combined Alcohol with any other Substance of Abuse during the last 90 days?: No Evidence of Increased Autonomic Activity (i.e. HR>120, tremor, sweating, agitation, nausea)?: No Result: 4
[2021-05-28 19:35] LABS: Abs Immature Grans 0.03 10^3/uL (0.0-0.06); Absolute Basophil Count 0.04 10^3/uL (0.0-0.2); Basophils % 0.9; Immature Grans % 0.7; Nucleated RBC 0 %
[2021-05-28 19:36] LABS: Absolute Eosinophil Count 0.31 10^3/uL (0.0-0.7); Absolute Monocyte Count 0.19 10^3/uL (0.1-0.8); Absolute Neutrophil Count 3.47 10^3/uL (1.2-6.7); Eosinophils % 6.8; HCT 35.5 % (36.0-46.0); HGB 11.5 g/dL (11.2-15.7); MCH 33.7 pg (27.0-33.0); MCHC 32.4 % (32.0-36.0); MCV 104.1 fL (80-95); MPV 9.1 fL (8.0-11.0); Monocytes % 4.2; Neutrophils % 76.4; Platelet Count 159 10^3/uL (130-400); RBC 3.41 10^6/uL (3.93-5.22); RDW 13.2 % (11.7-14.6); RDW-SD 50.5 fL; WBC 4.54 10^3/uL (4.4-10.8)
[2021-05-28] MEDS: Ondansetron 4 MG/2 ML VIAL IVP (19:40)
[2021-05-28] MEDS: Normal Saline 500 ML IV (19:41)
[2021-05-28 19:50] LABS: ALT 70 U/L (14-59); AST 150 U/L (15-37); Albumin 3.4 g/dL (3.4-5.0); Alkaline Phosphatase 160 U/L (46-116); Anion Gap 22.5 mmol/L (3-11); BUN 12 mg/dL (7-18); Bilirubin, Total 1.4 mg/dL (0.2-1.0); CO2 19.5 mmol/L (21.0-32.0); CREATININE 0.8 mg/dL (0.55-1.02); Calcium 9.4 mg/dL (8.5-10.1); Chloride 102 mmol/L (98-107); Glucose 131 mg/dL (74-106); Magnesium 1.6 mg/dL (1.8-2.4); Potassium 3.7 mmol/L (3.5-5.1); Sodium 144 mmol/L (136-145)
[2021-05-28 19:51] LABS: Troponin I < 0.05 ng/mL (<0.06)
[2021-05-28 20:00] LABS: ETHANOL BLOOD 213.9 mg/dL (<3); Lipase 72 U/L (73-393)
[2021-05-28] MEDS: Normal Saline 1,000 ML 1000 ML IV (20:58)
--- NOTE | 2021-05-28 22:30 | RT.EKG_ITS ---
APPROVED REPORT Exam: Resting ECG Reason for Exam: CP Patient Location: E HR:108 bpm ECG Measurements Heart Rate 108 AXIS HI 169 P 47 QRSd 86 QRS -26 QT 376 T -15 QTc 504 Conclusion Sinus tachycardia...rate> 99 Inferior infarct, old...Q >35mS, II III aVF Prolonged QT interval...QTc >500mS I have reviewed and interpreted ECG and agree with software generated interpretation. There are no significant changes compared to prior EKG performed on 05/28/2021 at 19:06.
[2021-05-28 22:46] LABS: Troponin I < 0.05 ng/mL (<0.06)
[2021-05-28] MEDS: MAGNESIUM SULFATE 2 GM/50 ML BAG IVPB (22:46)
[2021-05-29 00:45] VITALS: O2SAT 97
[2021-05-29 00:50] VITALS: O2SAT 98
[2021-05-29] MEDS: Normal Saline 100 ML (00:50)
[2021-05-29 01:00] VITALS: O2SAT 96
[2021-05-29 01:10] VITALS: O2SAT 96
[2021-05-29 01:20] VITALS: O2SAT 95
[2021-05-29 01:30] VITALS: O2SAT 97
== END 2021-05-29 05:35 | disposition home or self-care (01) ==
PROVIDERS: Emergency Medicine; Registered Nurse Emergency; Emergency Provider Emergency Medicine; PCP Family Medicine
DX: R11.2 Nausea with vomiting, unspecified (principal); R07.9 Chest pain, unspecified; E83.42 Hypomagnesemia; F10.20 Alcohol dependence, uncomplicated
CPT/HCPCS: 80053; 83690; 93005; 96361; 96365; 96366; 96375; 99284; 80320; 83735; 84484; 85025; 93010; J2405

== ENCOUNTER 2021-05-29 09:03 | Inpatient (IN) | payer MEDICARE, OTHER, SELFPAY ==
[2021-05-29] VITALS (33 sets, daily range): BP systolic 125–197; BP diastolic 71–109; PULSE 83–137; RESP 17–33; TEMP 36.4–37.7; O2SAT 90–100
--- NOTE | 2021-05-29 09:00 | RT.EKG_ITS ---
APPROVED REPORT Exam: Resting ECG Reason for Exam: vomiting Patient Location: E HR:126 bpm ECG Measurements Heart Rate 126 AXIS MI 139 P 58 QRSd 86 QRS -35 QT 342 T -11 QTc 496 Conclusion Sinus tachycardia...rate> 99. Sinus. No STEMI. I have reviewed and interpreted ECG and agree with software generated interpretation.
--- NOTE | 2021-05-29 09:30 | DI.CT_ITS ---
Exam(s) CT ABDOMEN PELVIS W EXAM: CT ABDOMEN PELVIS W CLINICAL HISTORY: abdominal pain, vomiting TECHNIQUE: Imaging Protocol: Axial computed tomography images with coronal and sagittal reformatted images were created and reviewed CONTRAST MATERIAL: Intravenous: Omnipaque 350 Contrast volume:77 mL Oral: No COMPARISON: CT CT ABDOMEN PELVIS WO from 04/15/2021 FINDINGS: The examination is limited due to patient motion artifact. ABDOMEN: Lung Bases: Atelectasis is seen in the lung bases. Cardiomegaly. Liver: Fatty infiltration of the liver. No measurable mass. Portal, Superior Mesenteric, and Splenic Veins: Unremarkable. Gallbladder and Biliary Tract: No radiodense calculus or dilation. Pancreas: Normal density, no abnormal calcifications or inflammatory process. Spleen: Normal. Adrenals: No masses seen. Kidneys: Normal size, contour and axis. No radiodense stones or obstructive uropathy. There are bilat eral renal cysts. No follow-up is recommended. The largest measures 3 cm and is located in the righ t kidney. Abdominal Aorta: Abdominal portion non-dilated. Atherosclerosis. Bowel: No obstruction or bowel wall thickening. Appendix is unremarkable. Peritoneal Cavity: No ascites, collection or mesenteric inflammatory response. No free air.There is a stable presacral mass. Lymph Nodes: Within normal limits. Bones: Multilevel degenerative changes are seen in the spine. Grade 1 pseudo spondylolisthesis of L4 on L5. Soft Tissues: Bilateral fat containing inguinal hernia. PELVIS: Bladder: Symmetric distention, no gross wall thickening. Reproductive Organs: Stable left partially calcified adnexal mass. Lymph Nodes: Within normal limits. Bones: Within normal limits for the patient's age. IMPRESSION: 1. No acute abdominal or pelvic process. 2. Results of this exam have been verbally communicated with provider. RADIATION DOSE DELIVERED: 953.36mGy.cm Total DLP DATA REPOSITORY: All CT scans at this facility are submitted to the National Radiology Data Registry (NRDR) Dose Index Registry (DIR) with the [employer] (ACR). RADIATION OPTIMIZATION: All CT scans at this facility use at least one of these dose optimization te chniques: automated exposure control; mA and/or kV adjustment per patient size (includes targeted exa ms where dose is matched to clinical indication); or iterative reconstruction.
[2021-05-29 09:34] LABS: Abs Immature Grans 0.02 10^3/uL (0.0-0.06); Absolute Basophil Count 0.02 10^3/uL (0.0-0.2); Absolute Eosinophil Count 0.01 10^3/uL (0.0-0.7); Absolute Lymphocyte Count 0.33 10^3/uL (1.2-3.4); Absolute Monocyte Count 0.32 10^3/uL (0.1-0.8); Basophils % 0.2; Eosinophils % 0.1; HCT 33.6 % (36.0-46.0); Immature Grans % 0.2; Lymphocytes % 3.7; MCH 33.6 pg (27.0-33.0); MCHC 32.7 % (32.0-36.0); MCV 102.8 fL (80-95); MPV 8.9 fL (8.0-11.0); Monocytes % 3.6; Neutrophils % 92.2; Nucleated RBC 0 %; Platelet Count 142 10^3/uL (130-400); RBC 3.27 10^6/uL (3.93-5.22); RDW 13.5 % (11.7-14.6)
[2021-05-29] MEDS: Metoclopramide 10 MG/2 ML VIAL IVP (09:42)
[2021-05-29] MEDS: LORazepam 2 MG/ML VIAL 1 MG IVP ×2 (09:43→23:01)
[2021-05-29] MEDS: THIAMINE 100 MG in Normal Saline 100 ML 200 MG IVPB (09:43)
[2021-05-29] MEDS: Lactated Ringers 1,000 ML 1000 ML IV (09:44)
[2021-05-29 09:55] LABS: ALT 65 U/L (14-59); AST 111 U/L (15-37); Albumin 3.8 g/dL (3.4-5.0); Alkaline Phosphatase 164 U/L (46-116); BUN 9 mg/dL (7-18); Bilirubin, Total 2.6 mg/dL (0.2-1.0); Calcium 9.8 mg/dL (8.5-10.1); Chloride 101 mmol/L (98-107); Estimated GFR 54.05 (mL/min/1.73m2); Glucose 227 mg/dL (74-106); Potassium 3.4 mmol/L (3.5-5.1); Sodium 143 mmol/L (136-145); Total Protein 7.5 g/dL (6.4-8.2)
[2021-05-29 09:57] LABS: ETHANOL BLOOD < 3.0 mg/dL (<3)
--- NOTE | 2021-05-29 10:06 | W.ED.GENAD ---
Discharge Plan Disposition Patient Disposition: [facility] INPATIENT Condition: Serious Discharge Details Clinical Impression: Nausea and vomiting, Alcohol abuse, Dehydration Admit Date/Time: 05/29/21 13:38 Admit Provider: Aydin Joy Attending Provider: Aydin Joy Primary Care Provider: Lavelle Galindo ED Provider: Monica Yarbrough Discharge Data Discharge Date/Time-TO BE ENTERED AT DEPARTURE: 05/29/21 14:38 Medical Decision Making <CELINA Snow - Last Filed: 05/30/21 16:15> Mild score of 10, and treated for alcohol withdrawal with a negative alcohol level was 1 and then a second 2 mg dose of Ativan, patient has been sleeping comfortably in the room, tachycardia has improved with IV fluid resuscitation Potassium is 3.4, magnesium within normal limits Given a dose of thiamine and 2 L of fluid, now on maintenance therapy CT does not show acute abnormality, patient has chronic 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 Smith, admitting hospitalist and she will be admitted for IV fluid resuscitation and observation Medical Records Medical records reviewed: Yes I reviewed the patient's medical records. Lab Data Lab results reviewed: Yes I reviewed the patient's lab results. ECG Data Prior ECG tracings: available for review <Megan Fsoter DO - Last Filed: 05/29/21 10:38> I have seen and examined this patient. I discussed case and reviewed note with Monica Yarbrough and I agree with plan and note as documented. HPI <CELINA Snow - Last Filed: 05/30/21 16:15> General Mode of arrival: ambulatory. Date/Time Provider Initiated Documentation: 05/29/21 09:10. Limitations to Documentation: no limitations. Information obtained by: patient. HPI Narrative: Alcohol dependent 76-year-old female with history of AMBER, hypomagnesemia, and urinary tract infection presents with report of nausea and vomiting with abdominal pain. Denies any fever or chills. States her last drink of alcohol was 4 days ago although her blood alcohol last evening was 213 at 11 PM. She denies any falls or injuries. She denies any chest pain or shortness of breath. She states she feels generally weak. Denies any chest pain or shortness of breath. Denies blood in vomitus or stool. Denies any diarrhea. Denies any additional illicit drug use. Denies any hallucinations. Feels tremulous. Denies falls or injuries. Will cannot tell me how much she typically drinks. She says it varies. Denies suicidal or homicidal ideation Related Data Home Medications Medication Instructions Recorded Confirmed Refresh Plus 1 drp OU Q4H WHILE AWAKE #30 each 06/20/19 05/29/21 food supplemt, lactose-reduced 414 ml PO DAILY #74076 ml 08/24/19 05/29/21 ipratropium 0.5 mg-albuterol 3 mg 3 ml IH QID PRN #90 ml 01/04/20 05/29/21 (2.5 mg base)/3 mL nebulization soln lifitegrast 5 % eye drops in a 1 drp OPHTHALMIC (EYE) BID 08/05/20 05/29/21 dropperette folic acid 1 mg tablet 1 mg PO DAILY #90 tab 09/05/20 05/29/21 metoprolol tartrate 50 mg tablet 50 mg PO BID #180 tab 09/05/20 05/29/21 multivitamin 1 tab PO DAILY #90 tab 09/05/20 05/29/21 thiamine HCl (vitamin B1) 100 mg 100 mg PO DAILY #90 tab 09/05/20 05/29/21 tablet Restasis 0.4 ml OU BID #10 ea 10/25/20 05/29/21 amlodipine 5 mg PO DAILY 11/12/20 05/29/21 fluoxetine 10 mg tablet 10 mg PO DAILY #30 tab 03/27/21 05/29/21 sucralfate 1 gram tablet 1 g PO AC & HS #120 tab 04/04/21 05/29/21 Creon 1 cap PO QMEALS #90 cap 04/23/21 05/29/21 cholestyramine-aspartame 1 ea PO BID PRN PRN #60 ea 04/23/21 05/29/21 [Prevalite] ondansetron 4 mg disintegrating 4 mg PO Q8H PRN #20 tab 04/28/21 05/29/21 tablet Previous Rx's Medication Instructions Recorded Refresh Plus 1 drp OU Q4H WHILE AWAKE #30 each 06/20/19 food supplemt, lactose-reduced 414 ml PO DAILY #13338 ml 08/24/19 ipratropium 0.5 mg-albuterol 3 mg 3 ml IH QID PRN #90 ml 01/04/20 (2.5 mg base)/3 mL nebulization soln folic acid 1 mg tablet 1 mg PO DAILY #90 tab 09/05/20 metoprolol tartrate 50 mg tablet 50 mg PO BID #180 tab 09/05/20 multivitamin 1 tab PO DAILY #90 tab 09/05/20 thiamine HCl (vitamin B1) 100 mg 100 mg PO DAILY #90 tab 09/05/20 tablet Restasis 0.4 ml OU BID #10 ea 10/25/20 fluoxetine 10 mg tablet 10 mg PO DAILY #30 tab 03/27/21 sucralfate 1 gram tablet 1 g PO AC & HS #120 tab 04/04/21 Creon 1 cap PO QMEALS #90 cap 04/23/21 cholestyramine-aspartame 1 ea PO BID PRN PRN #60 ea 04/23/21 [Prevalite] ondansetron 4 mg disintegrating 4 mg PO Q8H PRN #20 tab 04/28/21 tablet Allergies Allergy/AdvReac Type Severity Reaction Status Date / Time Penicillins Allergy Mild Rash Verified 05/28/21 19:16 ramipril Allergy Unknown ITCHING Verified 05/28/21 19:16 meperidine [From Demerol] AdvReac Severe Nausea Verified 05/28/21 19:16 bupropion AdvReac Mild GI upset Verified 05/28/21 19:16 AMBER Inhibitors AdvReac Unknown COUGH Verified 05/28/21 19:16 alendronate sodium AdvReac Unknown GI Distress Verified 05/28/21 19:16 clarithromycin AdvReac Unknown intolerant Verified 05/28/21 19:16 paroxetine AdvReac Unknown Diarrhea Verified 05/28/21 19:16 General Stated Complaint: Nausea/Vomit/Diar JORDAN: 3 Review of Systems <CELINA Snow - Last Filed: 05/30/21 16:15> All systems reviewed & are unremarkable except as noted in HPI and below PFSH <CELINA Snow - Last Filed: 05/30/21 16:15> Medical History Acute alcoholism Acute UTI Adjustment disorder with depressed mood AMBER (acute kidney injury) Alcohol abuse Alcohol intoxication Alcohol intoxication Alcoholic gastritis without bleeding Alcoholic ketosis Allergic rhinitis Anemia Back pain, chronic Blunt head trauma Blunt trauma of multiple sites of trunk Calcific tendinitis of left shoulder CAP (community acquired pneumonia) Cataract (11/07/15) Cervical radicular pain neck pain and DJD [facility] clinic Cervical strain 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) pls refrain from alcohol Chronic alcoholism she will not stop drinking unless she checks with me, so that we can help her avert withdrawal I do not think she is capable on her own--she would need placement to achieve required goal of 3 months of sobriety Chronic diarrhea Closed displaced fracture of proximal phalanx of right index finger with routine healing (06/03/17) Closed right humeral fracture Contusion of left little finger Corneal ulcer, right (~08/23/18) 08/23/18; [facility] Dehydration Depression Diarrhea Difficult intravenous access Multiple IV attempts, usually requires ultrasound placement. Discharge planning issues DVT prophylaxis Dystrophic nail Elev transaminase/LDH due to alcohol Epigastric abdominal pain Facial fracture due to fall Facial laceration Fall as cause of accidental injury at home as place of occurrence Fall at home Fracture of humerus, left, closed Genital herpes simplex recurrent gential; suppressive Valtrex GERD (gastroesophageal reflux disease) GI bleed (12/20/16) Head contusion Headache History of alcohol abuse Humerus fracture (09/12/19) Right Hyperlipidemia Hypertension Hypokalemia Hypokalemia Hypokalemia Hypomagnesemia Incidental lung nodule, greater than or equal to 8mm 1cm, spiculated, stable for many years, recommend f/u in 6 mo Intractable vomiting Leukopenia Macrocytosis (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 Multiple contusions Multiple fractures of ribs Multiple rib fractures 03/11/19 [facility] Nausea and vomiting in adult Non-cardiac chest pain (09/21/16) [facility] [place] [facility] 1/24/17 NEGATIVE MP Osteoarthritis Osteopenia Palliative care patient (03/21/17) Pancreatitis, alcoholic, acute Peripheral edema Photophobia of right eye Pleural effusion on left 03/11/19 [facility] Pneumonia Presacral mass (~09/15/18) 09/15/18 [facility] Rash Rib pain on right side Right rib fracture Sacral mass Sciatica right, epidural injuections PainCare Suicidal ideation Tendinitis of left rotator cuff Tubular adenoma of colon (01/28/17) Urinary incontinence 01/24/13 urethral suspension and sling at [facility] [place] (bladder suspension 1991) UTI (urinary tract infection) UTI (urinary tract infection) 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 Bladder repair. Ligation of fallopian tube Repair bladder injury, simple Family History Mother No problems noted. Father , DROWNED at age 50. No problems noted. Sister Personal history of malignant neoplasm MELANOMA Sister No problems noted. Grandfather Personal history of malignant neoplasm STOMACH Grandfather Personal history of malignant neoplasm PROSTATE Grandmother Heart disease MT Acute ill-defined cerebrovascular disease Grandmother Personal history of malignant neoplasm UTERINE Aunt , MT Heart disease MT Aunt , MT Heart disease Brother No problems noted. Social History Smoking/Tobacco Use Status: Never Smoking risk assessment performed?: Yes Alcohol Intake: current Alcohol Intake frequency: 3 or more drinks per day Alcohol type: hard liquor Drug use: Never Substance use type: does not use Current gender identity: female Do you feel safe at home: Yes Do you feel safe in your relationship?: Yes Additional Social history: Pt has been binge drinking since 4am Exam <CELINA Snow - Last Filed: 05/30/21 16:15> Const General: cooperative and ill appearing [facility] Head: normal to inspection Throat: uvula midline Other: tongue fasciculations Eyes Pupils: PERRL Neck Other: no midline tenderness Resp Effort & Inspection: normal respiratory effort Auscultation: clear to auscultation bilaterally Cardio Rate: tachycardic Rhythm: regular rhythm GI Other: Diffuse abdominal tenderness, no rebound or guarding Skin General skin exam: no rashes or lesions noted Neuro General: patient alert and patient oriented x3 Cranial Nerves: CN's II-XI intact bilaterally and tongue midline Other: Tremor noted Extrem Other: distal pulses intact no peripheral edema Psych Appearance: disheveled Course <CELINA Snow - Last Filed: 05/30/21 16:15> Vital Signs Vital signs: Vital Signs Temperature 36.4 C L 05/29/21 09:04 Pulse 131 H 05/29/21 09:04 Respiratory Rate 24 05/29/21 09:04 Blood Pressure 195/109 H 05/29/21 09:04 Pulse Oximetry 98 05/29/21 09:04 Temperature 36.4 C L 05/29/21 09:04 Temperature Source Temporal Artery Scan 05/29/21 09:04 Pulse 131 H 05/29/21 09:04 Respiratory Rate 24 05/29/21 09:04 Blood Pressure 195/109 H 05/29/21 09:04 Blood Pressure Position Supine 05/29/21 09:04 Pulse Oximetry 98 05/29/21 09:04 Oxygen Delivery Method Room Air 05/29/21 09:04 Oxygen Flow Rate 0 05/29/21 09:04 Pain Level 6 05/29/21 09:43 Lab/Test Results Lab/Test Results: Laboratory Tests Range/Units 05/29/21 05/29/21 09:25 09:25 WBC (4.4-10.8) 10^3/uL 9.00 D RBC (3.93-5.22) 10^6/uL 3.27 L Hgb (11.2-15.7) g/dL 11.0 L Hct (36.0-46.0) % 33.6 L MCV (80-95) fL 102.8 H MCH (27.0-33.0) pg 33.6 H MCHC (32.0-36.0) % 32.7 RDW (11.7-14.6) % 13.5 Plt Count (130-400) 10^3/uL 142 MPV (8.0-11.0) fL 8.9 Immature Gran % 0.2 Neutrophils % 92.2 Lymphocytes % 3.7 Monocytes % 3.6 Eosinophils % 0.1 Basophils % 0.2 Nucleated RBC % % 0 Absolute Neutrophils (1.2-6.7) 10^3/uL 8.30 H Absolute Lymphocytes (1.2-3.4) 10^3/uL 0.33 L Absolute Monocytes (0.1-0.8) 10^3/uL 0.32 Absolute Eosinophils (0.0-0.7) 10^3/uL 0.01 Absolute Basophils (0.0-0.2) 10^3/uL 0.02 Sodium (136-145) mmol/L 143 Potassium (3.5-5.1) mmol/L 3.4 L Chloride (98-107) mmol/L 101 Carbon Dioxide (21.0-32.0) mmol/L 22.0 Anion Gap (3-11) mmol/L 20.0 H BUN (7-18) mg/dL 9 Creatinine (0.55-1.02) mg/dL 1.0 Estimated GFR/1.73 m2 (mL/min/1.73m2) 54.05 Glucose (74-106) mg/dL 227 H D Calcium (8.5-10.1) mg/dL 9.8 Magnesium (1.8-2.4) mg/dL 2.0 Total Bilirubin (0.2-1.0) mg/dL 2.6 H AST (15-37) U/L 111 H ALT (14-59) U/L 65 H Alkaline Phosphatase (46-116) U/L 164 H Total Protein (6.4-8.2) g/dL 7.5 Albumin (3.4-5.0) g/dL 3.8 Ethyl Alcohol (<3) mg/dL < 3.0 Critical Care Time <CELINA Snow - Last Filed: 05/30/21 16:15> Critical Care Time Critical Care Time: Yes Total Critical Care Time: 40 Attestation: Ativan administration for acute alcohol withdrawal, tachycardia, hypotension, telemetry monitoring, IV fluid resuscitation. Acute dehydration, admission PAWSS <CELINA Snow - Last Filed: 05/30/21 16:15> Have you Been Recently Intoxicated or Drunk Within the Last 30 days?: Yes Have you Ever Experienced Previous Episodes of Alcohol Withdrawal?: Yes Have you ever Experienced Withdrawal Seizures?: No Have you ever Experienced Delirium Tremens(DT)s?: No Have you ever undergone Alcohol Rehabilitation Treatment (i.e, inpt ot outpatient treatment programs)?: Yes Have you ever Experienced Blackouts?: No Have you ever Combined Alcohol with other Downers within the last 90 days?: No Have you ever Combined Alcohol with any other Substance of Abuse during the last 90 days?: No Positive Blood Alcohol level on Presentation? [PCS.BAL]: No Evidence of Increased Autonomic Activity (i.e. HR>120, tremor, sweating, agitation, nausea)?: Yes Result: 4
[2021-05-29] MEDS: LORazepam 2 MG/ML VIAL IVP (10:27)
[2021-05-29] MEDS: Lactated Ringers 1,000 ML 500 ML IV (10:28)
[2021-05-29 10:29] LABS: Lipase 69 U/L (73-393)
[2021-05-29 10:30] LABS: Troponin I < 0.05 ng/mL (<0.06)
[2021-05-29 11:03] LABS: BE (Venous) 2 mmol/L (-2-3); HCO3 (Venous) 26 mmol/L (23-28); O2 Sat (Venous) 91 %; Source Nasal/Nares; TCO2 (Venous) 24 mmol/L (24-29); pCO2 (Venous) 36 mmHg (41-51); pH (Venous) 7.46 (7.31-7.41); pO2 (Venous) 59 mmHg
[2021-05-29 11:54] LABS: COVID-19 PCR Negative (Negative)
[2021-05-29] MEDS: Lactated Ringers 1,000 ML 100 ML IV (13:14)
[2021-05-29] MEDS: Lactated Ringers 1,000 ML 80 ML IV (14:48)
[2021-05-29 15:16] LABS: Bilirubin Negative (Negative); Blood Negative (Negative); Clarity Cloudy (Clear); Glucose 250 mg/dL (Negative); Ketones 80 mg/dL (Negative); Leukocyte Esterase Negative (Negative); Nitrite Positive (Negative); Urobilinogen 0.2 EU/dL (Up TO 0.2); pH 5.5 (5-8)
[2021-05-29] MEDS: POTASSIUM CHLORIDE 10 MEQ/100 ML BAG 100 MEQ IVPB ×2 (15:28→16:35)
[2021-05-29 15:41] LABS: Bacteria Packed HPF (Negative); C & S Indicated? Yes; Crystals Negative HPF (Negative); Epithelial Cells Negative HPF (Negative); Mucus Negative (Negative); RBC Negative HPF (0-2)
[2021-05-29] MEDS: Refresh PLUS Eye Drops 0.4ml OU (20:04)
[2021-05-29] MEDS: Metoprolol 50 MG TAB PO (20:05)
--- NOTE | 2021-05-29 20:30 | W.PM.HP.N ---
Date of service: 05/29/21 Time of Service: 16:31 Assessment and Plan Assessment and plan (1) Nausea and vomiting: Status: Acute Assessment and plan: Likely related to alcoholic gastritis. Protonix 40mg IV daily. PRN antiemetic. Clear liquid diet. (2) Transaminitis: Status: Acute Assessment and plan: Alcohol related. trend (3) Alcohol abuse: Status: Chronic Assessment and plan: Multiple admissions and noted not to have significant alcohol withdrawal. Ativan given in the ED for tremor. PRN Ativan. Continue to offer resources for alcohol cessation / sobriety maintenance though she has relapsed multiple times after hospital discharge. History of Present Illness History of Present Illness Chief Complaint: Abdominal pain Narrative: This is a 76 yo female with history of alcohol abuse, pancreatitis, HTN, HLD, PTSD, Depression, presacral mass, AMBER, hypomagnesemia, and urinary tract infections presents with report of nausea and vomiting and abd pain. Denied any fever or chills. She stated that her last drink of alcohol was 4 days ago although her blood alcohol last evening was 213 at 11 PM when she presented then to the ED (discharged to home). She denies any falls or injuries. No chest pain or shortness of breath. + generallized weakness and tremulouness. Denies any diarrhea. Denies No hematemesis or blood in stools. Denies suicidal or homicidal ideation Her blood alcohol level was negative. WBC count normal. Hgb 11. Platelets 142. K 3.4. Creatinine 1. Glucose 227. Bili 2.6. AST 111. ALT 65. Troponin neg. Lipase 69. Review of Systems All systems reviewed & are unremarkable except as noted in HPI and below [facility] Medical History Acute alcoholism Acute UTI Adjustment disorder with depressed mood AMBER (acute kidney injury) Alcohol abuse Alcohol intoxication Alcohol intoxication Alcoholic gastritis without bleeding Alcoholic ketosis Allergic rhinitis Anemia Back pain, chronic Blunt head trauma Blunt trauma of multiple sites of trunk Calcific tendinitis of left shoulder CAP (community acquired pneumonia) Cataract (11/07/15) Cervical radicular pain neck pain and DJD [facility] Cervical strain 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) pls refrain from alcohol Chronic alcoholism she will not stop drinking unless she checks with me, so that we can help her avert withdrawal I do not think she is capable on her own--she would need placement to achieve required goal of 3 months of sobriety Chronic diarrhea Closed displaced fracture of proximal phalanx of right index finger with routine healing (06/03/17) Closed right humeral fracture Contusion of left little finger Corneal ulcer, right (~08/23/18) 08/23/18; [facility] Dehydration Depression Diarrhea Difficult intravenous access Multiple IV attempts, usually requires ultrasound placement. Discharge planning issues DVT prophylaxis Dystrophic nail Elev transaminase/LDH due to alcohol Epigastric abdominal pain Facial fracture due to fall Facial laceration Fall as cause of accidental injury at home as place of occurrence Fall at home Fracture of humerus, left, closed Genital herpes simplex recurrent gential; suppressive Valtrex GERD (gastroesophageal reflux disease) GI bleed (12/20/16) Head contusion Headache History of alcohol abuse Humerus fracture (09/12/19) Right Hyperlipidemia Hypertension Hypokalemia Hypokalemia Hypokalemia Hypomagnesemia Incidental lung nodule, greater than or equal to 8mm 1cm, spiculated, stable for many years, recommend f/u in 6 mo Intractable vomiting Leukopenia Macrocytosis (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 Multiple contusions Multiple fractures of ribs Multiple rib fractures 03/11/19 [facility] Nausea and vomiting in adult Non-cardiac chest pain (09/21/16) [facility] 09/21/16 NEGATIVE MP Osteoarthritis Osteopenia Palliative care patient (03/21/17) Pancreatitis, alcoholic, acute Peripheral edema Photophobia of right eye Pleural effusion on left 03/11/19 [facility] Pneumonia Presacral mass (~09/15/18) 09/15/18 [facility] Rash Rib pain on right side Right rib fracture Sacral mass Sciatica right, epidural injuections [facility] Suicidal ideation Tendinitis of left rotator cuff Tubular adenoma of colon (01/28/17) Urinary incontinence 01/24/13 urethral suspension and sling at [facility] (bladder suspension 1991) UTI (urinary tract infection) UTI (urinary tract infection) 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 Bladder repair. Ligation of fallopian tube Repair bladder injury, simple Family History Mother No problems noted. Father , DROWNED at age 50. No problems noted. Sister Personal history of malignant neoplasm MELANOMA Sister No problems noted. Grandfather Personal history of malignant neoplasm STOMACH Grandfather Personal history of malignant neoplasm PROSTATE Grandmother Heart disease DE Acute ill-defined cerebrovascular disease Grandmother Personal history of malignant neoplasm UTERINE Aunt , DE Heart disease DE Aunt , DE Heart disease Brother No problems noted. Social History Smoking/Tobacco Use Status: Never Smoking risk assessment performed?: Yes Alcohol Intake: current Alcohol Intake frequency: 3 or more drinks per day Alcohol type: hard liquor Drug use: Never Substance use type: does not use Current gender identity: female Do you feel safe at home: Yes Do you feel safe in your relationship?: Yes Additional Social history: Pt has been binge drinking since 4am Meds Allergies and Home Medications Allergies Allergy/AdvReac Type Severity Reaction Status Date / Time Penicillins Allergy Mild Rash Verified 05/28/21 19:16 ramipril Allergy Unknown ITCHING Verified 05/28/21 19:16 meperidine [From Demerol] AdvReac Severe Nausea Verified 05/28/21 19:16 bupropion AdvReac Mild GI upset Verified 05/28/21 19:16 AMBER Inhibitors AdvReac Unknown COUGH Verified 05/28/21 19:16 alendronate sodium AdvReac Unknown GI Distress Verified 05/28/21 19:16 clarithromycin AdvReac Unknown intolerant Verified 05/28/21 19:16 paroxetine AdvReac Unknown Diarrhea Verified 05/28/21 19:16 Home Medications Medication Instructions Recorded Confirmed Type Refresh Plus 1 drp OU Q4H WHILE AWAKE #30 each 06/20/19 05/29/21 Rx food supplemt, lactose-reduced 414 ml PO DAILY #55297 ml 08/24/19 05/29/21 Rx ipratropium 0.5 mg-albuterol 3 mg 3 ml IH QID PRN #90 ml 01/04/20 05/29/21 Rx (2.5 mg base)/3 mL nebulization soln lifitegrast 5 % eye drops in a 1 drp OPHTHALMIC (EYE) BID 08/05/20 05/29/21 History dropperette folic acid 1 mg tablet 1 mg PO DAILY #90 tab 09/05/20 05/29/21 Rx metoprolol tartrate 50 mg tablet 50 mg PO BID #180 tab 09/05/20 05/29/21 Rx multivitamin 1 tab PO DAILY #90 tab 09/05/20 05/29/21 Rx thiamine HCl (vitamin B1) 100 mg 100 mg PO DAILY #90 tab 09/05/20 05/29/21 Rx tablet Restasis 0.4 ml OU BID #10 ea 10/25/20 05/29/21 Rx amlodipine 5 mg PO DAILY 11/12/20 05/29/21 History fluoxetine 10 mg tablet 10 mg PO DAILY #30 tab 03/27/21 05/29/21 Rx sucralfate 1 gram tablet 1 g PO AC & HS #120 tab 04/04/21 05/29/21 Rx Creon 1 cap PO QMEALS #90 cap 04/23/21 05/29/21 Rx cholestyramine-aspartame 1 ea PO BID PRN PRN #60 ea 04/23/21 05/29/21 Rx [Prevalite] ondansetron 4 mg disintegrating 4 mg PO Q8H PRN #20 tab 04/28/21 05/29/21 Rx tablet Exam Const General: cooperative, no acute distress and lethargic Nutritional Appearance: underweight Orientation: oriented x3 Eyes Sclera: sclerae normal Pupils: PERRL Neck Neck: full ROM and no JVD Resp Effort & Inspection: normal respiratory effort Auscultation: clear to auscultation bilaterally Cardio Rate: regular rate Rhythm: regular rhythm Heart Sounds: S1 normal and S2 normal GI Inspection: non-distended Palpation: soft and tender in the epigastrum Skin General skin exam: no rashes or lesions noted Neuro General: no focal motor deficits Cranial Nerves: facial strength normal Speech: speech normal Extrem General: no pedal edema and no calf tenderness Psych Appearance: grossly normal Speech and Movement: speech clear Affect: blunted Results Labs Result diagrams: 05/29/21 09:25 05/29/21 09:25 Labs: Laboratory Results - last 24 hr 05/29/21 05/29/21 05/29/21 09:25 09:25 09:25 WBC 9.00 D RBC 3.27 L Hgb 11.0 L Hct 33.6 L MCV 102.8 H MCH 33.6 H MCHC 32.7 RDW 13.5 Plt Count 142 MPV 8.9 Immature Gran % 0.2 Neutrophils % 92.2 Lymphocytes % 3.7 Monocytes % 3.6 Eosinophils % 0.1 Basophils % 0.2 Nucleated RBC % 0 Absolute Neutrophils 8.30 H Absolute Lymphocytes 0.33 L Absolute Monocytes 0.32 Absolute Eosinophils 0.01 Absolute Basophils 0.02 VBG pH VBG pCO2 VBG pO2 VBG HCO3 VBG Total CO2 VBG O2 Saturation VBG Base Excess Sodium 143 Potassium 3.4 L Chloride 101 Carbon Dioxide 22.0 Anion Gap 20.0 H BUN 9 Creatinine 1.0 Estimated GFR/1.73 m2 54.05 Glucose 227 H D Calcium 9.8 Magnesium 2.0 Total Bilirubin 2.6 H AST 111 H ALT 65 H Alkaline Phosphatase 164 H Troponin I < 0.05 Total Protein 7.5 Albumin 3.8 Lipase 69 Urine Color Urine Clarity Urine pH Ur Specific [place] Urine Protein Urine Ketones Urine Blood Urine Nitrite Urine Bilirubin Urine Urobilinogen Ur Leukocyte Esterase Urine RBC Urine WBC Ur Epithelial Cells Urine Crystals Urine Bacteria Urine Mucus Ur Culture Indicated? Urine Glucose Ethyl Alcohol < 3.0 COVID-19 Source SARS-CoV-2 (PCR) 05/29/21 05/29/21 05/29/21 11:00 11:00 14:30 WBC RBC Hgb Hct MCV MCH MCHC RDW Plt Count MPV Immature Gran % Neutrophils % Lymphocytes % Monocytes % Eosinophils % Basophils % Nucleated RBC % Absolute Neutrophils Absolute Lymphocytes Absolute Monocytes Absolute Eosinophils Absolute Basophils VBG pH 7.46 H VBG pCO2 36 L VBG pO2 59 VBG HCO3 26 VBG Total CO2 24 VBG O2 Saturation 91 VBG Base Excess 2 Sodium Potassium Chloride Carbon Dioxide Anion Gap BUN Creatinine Estimated GFR/1.73 m2 Glucose Calcium Magnesium Total Bilirubin AST ALT Alkaline Phosphatase Troponin I Total Protein Albumin Lipase Urine Color Yellow Urine Clarity Cloudy Urine pH 5.5 Ur Specific [place] 1.020 Urine Protein Trace H Urine Ketones 80 H Urine Blood Negative Urine Nitrite Positive H Urine Bilirubin Negative Urine Urobilinogen 0.2 Ur Leukocyte Esterase Negative Urine RBC Negative Urine WBC 5-10 Ur Epithelial Cells Negative Urine Crystals Negative Urine Bacteria Packed Urine Mucus Negative Ur Culture Indicated? Yes Urine Glucose 250 H Ethyl Alcohol COVID-19 Source Nasal/Nares SARS-CoV-2 (PCR) Negative Last Vital Signs Temp 36.8 C 05/29/21 14:49 Pulse 95 H 05/29/21 16:40 Resp 18 05/29/21 14:49 BP 151/86 H 05/29/21 14:49 Pulse Ox 94 05/29/21 16:40 PAWSS Have you Been Recently Intoxicated or Drunk Within the Last 30 days?: Yes Have you Ever Experienced Previous Episodes of Alcohol Withdrawal?: Yes Have you ever Experienced Withdrawal Seizures?: No Have you ever Experienced Delirium Tremens(DT)s?: No Have you ever undergone Alcohol Rehabilitation Treatment (i.e, inpt ot outpatient treatment programs)?: Yes Have you ever Experienced Blackouts?: No Have you ever Combined Alcohol with other Downers within the last 90 days?: No Have you ever Combined Alcohol with any other Substance of Abuse during the last 90 days?: No Positive Blood Alcohol level on Presentation? [PCS.BAL]: No Evidence of Increased Autonomic Activity (i.e. HR>120, tremor, sweating, agitation, nausea)?: Yes Result: 4
[2021-05-30] VITALS (7 sets, daily range): BP systolic 124–149; BP diastolic 75–90; PULSE 80–101; RESP 16–18; TEMP 36.6–37.6; O2SAT 93–96
[2021-05-30] MEDS: LORazepam 2 MG/ML VIAL 1 MG IVP ×2 (01:11→03:22)
[2021-05-30] MEDS: Lactated Ringers 1,000 ML 80 ML IV (03:21)
[2021-05-30] MEDS: LORazepam 2 MG/ML VIAL 1.5 MG IVP (05:00)
[2021-05-30 06:44] LABS: Abs Immature Grans 0.02 10^3/uL (0.0-0.06); Absolute Basophil Count 0.01 10^3/uL (0.0-0.2); Absolute Lymphocyte Count 0.89 10^3/uL (1.2-3.4); Absolute Monocyte Count 0.32 10^3/uL (0.1-0.8); Absolute Neutrophil Count 3.58 10^3/uL (1.2-6.7); Basophils % 0.2; HCT 29.4 % (36.0-46.0); HGB 9.4 g/dL (11.2-15.7); Immature Grans % 0.4; Lymphocytes % 18.5; MCH 33.1 pg (27.0-33.0); MCV 103.5 fL (80-95); MPV 9.7 fL (8.0-11.0); Monocytes % 6.6; Neutrophils % 74.3; Nucleated RBC 0 %; Platelet Count 92 10^3/uL (130-400); RBC 2.84 10^6/uL (3.93-5.22); RDW-SD 49.1 fL; WBC 4.82 10^3/uL (4.4-10.8)
[2021-05-30 07:04] LABS: ALT 43 U/L (14-59); AST 69 U/L (15-37); Albumin 2.8 g/dL (3.4-5.0); Alkaline Phosphatase 120 U/L (46-116); Anion Gap 6.4 mmol/L (3-11); BUN 3 mg/dL (7-18); Bilirubin, Total 2.3 mg/dL (0.2-1.0); CO2 29.6 mmol/L (21.0-32.0); CREATININE 0.8 mg/dL (0.55-1.02); Chloride 100 mmol/L (98-107); Glucose 158 mg/dL (74-106); Sodium 136 mmol/L (136-145); Total Protein 5.8 g/dL (6.4-8.2)
[2021-05-30 07:06] LABS: Potassium 2.9 mmol/L (3.5-5.1)
[2021-05-30] MEDS: Creon, Lipase 6,000 CAPCR 1 CAP PO ×3 (07:47→16:09)
[2021-05-30] MEDS: Pantoprazole 40 MG VIAL IVP (07:47)
[2021-05-30] MEDS: FLUoxetine 10 MG TAB PO (07:47)
[2021-05-30] MEDS: Refresh PLUS Eye Drops 0.4ml OU ×4 (07:47→19:27)
[2021-05-30] MEDS: amLODIPine 5 MG TAB PO (07:48)
[2021-05-30] MEDS: Multivitamin TAB 1 TAB PO (07:48)
[2021-05-30] MEDS: Folic Acid 1 MG TAB PO (07:48)
[2021-05-30] MEDS: Thiamine 100 MG TAB PO (07:48)
[2021-05-30] MEDS: Metoprolol 50 MG TAB PO ×2 (07:48→19:28)
[2021-05-30 08:23] LABS: Magnesium 1.3 mg/dL (1.8-2.4)
[2021-05-30] MEDS: POTASSIUM CHLORIDE 20 MEQ/100 ML BAG 50 MEQ IVPB ×2 (08:33→11:17)
[2021-05-30] MEDS: Potassium Chloride 20 MEQ TABCR 40 MEQ PO (08:33)
[2021-05-30] MEDS: Normal Saline Flush 10 ML SYR IVP ×2 (08:34→19:28)
--- NOTE | 2021-05-30 09:59 | PDOC.CMIN ---
- If Service Date Differs Date of service: 05/30/21 Time of Service: 09:59 Care Management Initial Assess REASON FOR HOSPITALIZATION:: Abdominal Pain with Emesis. PAST MEDICAL HISTORY/PAST SURGICAL HISTORY:: Medical History: Acute alcoholism, Acute UTI, Adjustment disorder with depressed mood, AMBER (acute kidney injury), Alcohol abuse, Alcohol intoxication, Alcoholic gastritis without bleeding, Alcoholic ketosis, Allergic rhinitis, Anemia, Back pain, chronic, Blunt head trauma, Blunt trauma of multiple sites of trunk, Calcific tendinitis of left shoulder,. CAP (community acquired pneumonia), Cataract (11/07/15), Cervical radicular pain, neck pain and DJD - [facility], Cervical strain,. 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) - pls refrain from alcohol; Chronic alcoholism - she will not stop drinking unless she checks with me, so that we can help her avert withdrawal - I do not think she is capable on her own--she would need placement to achieve required goal of 3 months of sobriety, Chronic diarrhea, Closed displaced fracture of proximal phalanx of right index finger with routine healing (06/03/17), Closed right humeral fracture, Contusion of left little finger, Corneal ulcer, right (~08/23/18). 08/23/18; [facility], Dehydration, Depression, Diarrhea, Difficult intravenous access - Multiple IV attempts, usually requires ultrasound placement., Discharge planning issues, DVT prophylaxis, Dystrophic nail. Elev transaminase/LDH - due to alcohol, Epigastric abdominal pain,. Facial fracture due to fall, Facial laceration, Fall as cause of accidental injury at home as place of occurrence, Fall at home, Fracture of humerus, left, closed, Genital herpes simplex - recurrent gential; suppressive Valtrex, GERD (gastroesophageal reflux disease), GI bleed (12/20/16),. Head contusion, Headache, History of alcohol abuse, Humerus fracture (09/12/19) - Right, Hyperlipidemia, Hypertension, Hypokalemia,. Hypomagnesemia, Incidental lung nodule, greater than or equal to 8mm. 1cm, spiculated, stable for many years, recommend f/u in 6 mo, Intractable vomiting, Leukopenia, Macrocytosis (09/26/14) - due to alcohol, Multiple contusions, Multiple rib fractures - 03/11/19 [facility] ,. Nausea and vomiting in adult, Non-cardiac chest pain (09/21/16) - [facility] 09/21/16 NEGATIVE MP, Osteoarthritis, Osteopenia, Palliative care patient (03/21/17), Pancreatitis, alcoholic, acute, Peripheral edema, Photophobia of right eye, Pleural effusion on left - 03/11/19 [facility], Pneumonia,. Presacral mass (~09/15/18) - 09/15/18 [facility], Rash,. Rib pain on right side, Right rib fracture, Sacral mass, Sciatica - right, epidural injuections, [facility], Suicidal ideation, Tendinitis of left rotator cuff, Tubular adenoma of colon (01/28/17), Urinary incontinence - 01/24/13 urethral suspension and sling at [facility] (bladder suspension 1991), UTI (urinary tract infection), Vision loss of right eye - 08/17/18;[facility], and. Wernicke encephalopathy. Surgical History: Bladder Surgery - suspension, Colonoscopy - MAC (01/28/17), EGD - MAC (12/20/16), History of bilateral ligation of fallopian tubes, History of Surgical Procedure - a. Bladder repair., and Repair bladder injury, simple. PREVIOUS FUNCTIONAL STATUS/SOCIAL/FAMILY SUPPORTS:: Leticia lives alone with several pets in her own home in [place]. ADVANCE DIRECTIVES:: DNR/COLST on file; her son Bennie is appointed as Health Care Agent. Has patient been provided with info about the portal/API?: Yes Did the patient sign up for the portal?: Yes (Previously enrolled.) CODE STATUS:: DNR/DNI INSURANCE COVERAGE / FINANCIAL ISSUES:: [facility] ([facility] Replacement Plan). CURRENT HOME/COMMUNITY SERVICES/EQUIPMENT:: Leticia owns a walker, a cane, and a toilet seat riser. She has a caregiver four days a week for two hours per day, in addition to HH RN and MOW. PRIMARY CARE PHYSICIAN:: Lavelle Galindo MD ([facility]). POTENTIAL DISCHARGE NEEDS:: Follow up with PCP and discharge plan of care. PATIENT/FAMILY EDUCATION NEEDS:: Review of discharge instructions regarding medications, activity level, and follow up plan of care, and discussion of Ask Me Three. ANTICIPATED BARRIERS TO DISCHARGE:: None anticipated at this time. TRANSPORTATION:: Via [facility] private vehicle. PLAN:: Anticipate Leticia will be discharged home with a resumption of HH RN services when medically cleared by provider. She will follow up with her community providers and plan of care as directed. Leticia will transport home via [facility] private vehicle coordinated by CM. CM will continue to support Leticia and any discharge planning needs. Readmission - Within the Past 30 Days Yes or No: Y - Date of First Admission Date of 1st Admission: 05/12/21 - Date of this Admission Date of Admission: 05/29/21 This admission was: Through ED - Office Visit Since 1st Admission Have you seen your PCP in the office since discharge?: No Had an appointment Been Scheduled?: No Describe barriers for scheduling or getting an appointment: Patient did not wish to schedule a follow up appointment with her PCP. - I. Interview patient and/or Family Difficulty reaching your doctor or getting an office appt?: No Have you had trouble purchasing/ or taking medication?: No How do you take your medications and set up your pills?: Caregiver sets up Leticia's medications. Have you had trouble with getting meals at home?: No Describe your typical meals since you have been home: MOW. Did you feel ready for discharge when you left the last time: Yes Were services received that you thought were set up on disch: Yes What services were received?: HH RN services and MOW. Did you call your physician beore you came to the ED?: No How do you think you became sick enough to come back?: I don't know. - If the patient had a VNA ordered Did the patient have a VNA order?: Yes Did you call the VNA before you came?: No - Ask the Care Team Members: What do you think caused the patient to be readmitted: Patient has had several admissions for nausea and vomiting, alcohol abuse, and dehydration. Her ongoing use of alcohol is preventing her from following up with IR for a biopsy of her lung/pelvic masses. Patient has undergone alcohol rehabilitation rehabilitation treatment but has been unsuccessful at remaining sober. - ED visits How many ED visits in the past 12 months: 19 - Assessment for Readmission Summary of readmission circumstances, based upon interviews: Leticia continues to drink alcohol on a daily basis which is preventing her from following up with a biopsy of her lung/pelvic masses. Her use of alcohol frequently leads to dehydration, hypokalemia and hypomagnesemia. A palliative care consult has been requested to help Leticia clarify her goals of care.
--- NOTE | 2021-05-30 11:52 | PGE_ITS ---
Date of Service Date of service: 05/30/21 Time of Service: 11:52 Assessment and Plan Assessment and plan (1) Alcohol withdrawal delirium, acute, hypoactive: Status: Acute Assessment and plan: Continue to monitor on CIWA with prn oral/SL benzodiazepines, which appear to be sufficient to control her sx. Monitor on medical surgical floor. Provide vitamin replacement. (2) Epigastric pain: Status: Acute Assessment and plan: Suspect alcoholic gastritis. Noted that Hemoglobin has drifted down to 9.4 from 11.0. Will r/o GI bleeding - check hemoccult, reheck H/H. On IV PPI - add carafate. Continue clears. (3) Nausea and vomiting: Status: Acute Assessment and plan: As above (4) Transaminitis: Status: Acute Assessment and plan: Improved. I also suspect alcoholic liver disease. Continue to monitor (5) Dehydration: Status: Acute Assessment and plan: Continue IVF (6) Hypokalemia: Status: Acute Assessment and plan: Replete and recheck in am. Also replete magnesium (7) Hypomagnesemia: Status: Chronic Assessment and plan: Replete and recheck in am (8) Alcohol abuse: Status: Chronic Assessment and plan: Consult palliative care. At this point, if the patient continues to drink, which prevents her from following up with IR for biopsy of her lung/pelvic masses, hospice [facility] tbe appropriate. (9) DVT prophylaxis: Status: Acute Assessment and plan: SCDs (10) Discharge planning issues: Status: Acute Assessment and plan: DNR/DNI Consult PT and palliative care Subjective Subjective Interval history since last seen: Leticia reports feeling terrible. When I ask her what she means, she says she has a headache and her whole left side of the chest hurts. This pain is reproducible with palpation. She also reports nausea. Denies dizziness. Endorses abdominal pain (epigastric). Per nurses, she has spent the majority of the morning sleeping and reported none of this until my visit. She did require an extra dose of ativan overnight for a CIWA score of 13, which improved to 1 this morning. Exam Narrative Exam Narrative: General: Somnolent but arousable elderly female, A&Ox1 (I am on level 6 when asked for location) HEENT: EOMI, dry MM Heart: RRR, mildly tachycardic Lungs: CTAB (diminished) Abdomen: soft, tender in epigastrium, nondistended Extremities: no edema BLE's Objective Last Vital Signs Temp 36.9 C 05/30/21 07:26 Pulse 101 H 05/30/21 07:26 Resp 18 05/30/21 07:26 BP 133/90 05/30/21 07:26 Pulse Ox 93 05/30/21 07:26 Laboratory Results - last 24 hr 05/29/21 05/29/21 05/30/21 11:00 14:30 06:14 WBC RBC Hgb Hct MCV MCH MCHC RDW Plt Count MPV Immature Gran % Neutrophils % Lymphocytes % Monocytes % Eosinophils % Basophils % Nucleated RBC % Absolute Neutrophils Absolute Lymphocytes Absolute Monocytes Absolute Eosinophils Absolute Basophils Sodium 136 Potassium 2.9 L Chloride 100 Carbon Dioxide 29.6 Anion Gap 6.4 BUN 3 L Creatinine 0.8 Estimated GFR/1.73 m2 >= 60.00 Glucose 158 H Calcium 9.0 Magnesium 1.3 L Total Bilirubin 2.3 H AST 69 H ALT 43 Alkaline Phosphatase 120 H Total Protein 5.8 L Albumin 2.8 L Urine Color Yellow Urine Clarity Cloudy Urine pH 5.5 Ur Specific [place] 1.020 Urine Protein Trace H Urine Ketones 80 H Urine Blood Negative Urine Nitrite Positive H Urine Bilirubin Negative Urine Urobilinogen 0.2 Ur Leukocyte Esterase Negative Urine RBC Negative Urine WBC 5-10 Ur Epithelial Cells Negative Urine Crystals Negative Urine Bacteria Packed Urine Mucus Negative Ur Culture Indicated? Yes Urine Glucose 250 H SARS-CoV-2 (PCR) Negative 05/30/21 06:14 WBC 4.82 D RBC 2.84 L Hgb 9.4 L Hct 29.4 L MCV 103.5 H MCH 33.1 H MCHC 32.0 RDW 13.0 Plt Count 92 L MPV 9.7 Immature Gran % 0.4 Neutrophils % 74.3 Lymphocytes % 18.5 Monocytes % 6.6 Eosinophils % 0.0 Basophils % 0.2 Nucleated RBC % 0 Absolute Neutrophils 3.58 Absolute Lymphocytes 0.89 L Absolute Monocytes 0.32 Absolute Eosinophils 0.00 Absolute Basophils 0.01 Sodium Potassium Chloride Carbon Dioxide Anion Gap BUN Creatinine Estimated GFR/1.73 m2 Glucose Calcium Magnesium Total Bilirubin AST ALT Alkaline Phosphatase Total Protein Albumin Urine Color Urine Clarity Urine pH Ur Specific [place] Urine Protein Urine Ketones Urine Blood Urine Nitrite Urine Bilirubin Urine Urobilinogen Ur Leukocyte Esterase Urine RBC Urine WBC Ur Epithelial Cells Urine Crystals Urine Bacteria Urine Mucus Ur Culture Indicated? Urine Glucose SARS-CoV-2 (PCR) PAWSS Have you Been Recently Intoxicated or Drunk Within the Last 30 days?: Yes Have you Ever Experienced Previous Episodes of Alcohol Withdrawal?: Yes Have you ever Experienced Withdrawal Seizures?: No Have you ever Experienced Delirium Tremens(DT)s?: No Have you ever undergone Alcohol Rehabilitation Treatment (i.e, inpt ot outpatient treatment programs)?: Yes Have you ever Experienced Blackouts?: No Have you ever Combined Alcohol with other Downers within the last 90 days?: No Have you ever Combined Alcohol with any other Substance of Abuse during the last 90 days?: No Positive Blood Alcohol level on Presentation? [PCS.BAL]: No Evidence of Increased Autonomic Activity (i.e. HR>120, tremor, sweating, agitation, nausea)?: Yes Result: 4
--- NOTE | 2021-05-30 12:02 | PT.INIE ---
Date of service: 05/30/21 Time of Service: 11:10 PT Notes Visit Reasons: Abdominal Pain with Emesis Inpatient Physical Therapy Evaluation Date: 05/30/21 Referring Doctor: Laly Dumont PT Orders: PT CONSULT: Evaluate and Treat Precautions: Standard Patient Profile/Admitting Diagnosis: Orders received for this 76-year-old female. Patient states that she was having abdominal pain and uncontrollable vomiting. She was taken to the hospital and according to diagnosis is on alcohol withdrawal. She has been on Ativan which is made her a little more drowsy as of late. Orders are received for evaluation and treatment of functional level PMHX: Medical History Acute alcoholism Acute UTI Adjustment disorder with depressed mood AMBER (acute kidney injury) Alcohol abuse Alcohol intoxication Alcohol intoxication Alcoholic gastritis without bleeding Alcoholic ketosis Allergic rhinitis Anemia Back pain, chronic Blunt head trauma Blunt trauma of multiple sites of trunk Calcific tendinitis of left shoulder CAP (community acquired pneumonia) Cataract (11/07/15) Cervical radicular pain neck pain and DJD [facility] clinic Cervical strain 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) pls refrain from alcohol Chronic alcoholism she will not stop drinking unless she checks with me, so that we can help her avert withdrawal I do not think she is capable on her own--she would need placement to achieve required goal of 3 months of sobriety Chronic diarrhea Closed displaced fracture of proximal phalanx of right index finger with routine healing (06/03/17) Closed right humeral fracture Contusion of left little finger Corneal ulcer, right (~08/23/18) 08/23/18; [facility] Dehydration Depression Diarrhea Difficult intravenous access Multiple IV attempts, usually requires ultrasound placement. Discharge planning issues DVT prophylaxis Dystrophic nail Elev transaminase/LDH due to alcohol Epigastric abdominal pain Facial fracture due to fall Facial laceration Fall as cause of accidental injury at home as place of occurrence Fall at home Fracture of humerus, left, closed Genital herpes simplex recurrent gential; suppressive Valtrex GERD (gastroesophageal reflux disease) GI bleed (12/20/16) Head contusion Headache History of alcohol abuse Humerus fracture (09/12/19) Right Hyperlipidemia Hypertension Hypokalemia Hypokalemia Hypokalemia Hypomagnesemia Incidental lung nodule, greater than or equal to 8mm 1cm, spiculated, stable for many years, recommend f/u in 6 mo Intractable vomiting Leukopenia Macrocytosis (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 Multiple contusions Multiple fractures of ribs Multiple rib fractures 03/11/19 [facility] Nausea and vomiting in adult Non-cardiac chest pain (09/21/16) [facility] [place] NEGATIVE MP Osteoarthritis Osteopenia Palliative care patient (03/21/17) Pancreatitis, alcoholic, acute Peripheral edema Photophobia of right eye Pleural effusion on left 03/11/19 [facility] Pneumonia Presacral mass (~09/15/18) 09/15/18 [facility] Rash Rib pain on right side Right rib fracture Sacral mass Sciatica right, epidural injuections PainCare Suicidal ideation Tendinitis of left rotator cuff Tubular adenoma of colon (01/28/17) Urinary incontinence 01/24/13 urethral suspension and sling at [facility] [place] (bladder suspension 1991) UTI (urinary tract infection) UTI (urinary tract infection) 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 Bladder repair. Ligation of fallopian tube Repair bladder injury, simple Social History/Home Situation: Patient lives at home with 4 steps in which to enter the home and utilizes a 2 wheel walker at baseline Equipment Owned/DME: 2 wheel walker Subjective: Patient states that she is very tired Objective: Patient lying in bed with head of bed to 30 degrees, she is all covered up medical lines in place on the right upper extremity with IV access. She is a little drowsy but is engaged Mental Status: Well oriented alert to person place and time Pain: Patient complains of minimal pain to the neck which she states as a chronic arthritis pain ROM: Right Upper Extremity: Within functional limits Left Upper Extremity: Within functional limits Right Lower Extremity: Within functional limits Left Lower Extremity: Within functional limits Strength: Right Upper Extremity: Globally 4+ out of 5 Left Upper Extremity: Globally 4+ out of 5 Right Lower Extremity: Globally 4+ out of 5 Left Lower Extremity: Globally 4+ out of 5 Bed Mobility/Transfers: Patient able to negotiate her bed linen independently, she requires mild assistance in order to achieve a supine to long sit position. Due to the fact the patient just barely got out of bed with the aid of nursing and minimal assist to use the commode she was not up for getting back out of bed at this point in time. Supine-sit: Min assist Sit-stand: Not observed performed with nursing Stand-sit: Not observed performed with nursing Bed-commode: Not observed performed with nursing Gait: N/A Balance: Static Sitting: Good Dynamic Sitting: Fair Static Standing: Not observed Dynamic Standing: Not observed Therapeutic exercise: Patient was trained in the following exercises Ankle pumps Heel slides Quad sets Gluteal sets Scapular retraction Cervical spine chin tucks Special Tests: Mobility Limitations Standardized Measure [facility] AM-PAC 6 clicks Basic Mobility Inpatient Short Form: Raw Score: 15 standardized Score: 39.45 CMS Score: 57.7% Informed Consent/Education: Patient instructed in purpose of PT consult and plan of care. ASSESSMENT: Patient is a 76-year-old female with history of chronic health conditions affecting function Admitted with alcohol withdrawal Patient presents with the following impairment level findings: Difficulty with mobility including transfers, gait, balance. Decreased strength through the upper and lower extremities , minor incoordination Pt will benefit from skilled therapy intervention in order to remedy their functional limitations and restore patient to a more appropriate and stable functional level. Impairments are contributing to the following functional limitations: AMPAC score 57.7% Patient is assessed as a moderate complexity initial evaluation based on the following: History: see above Examination: see above Presentation: Evolving Decision Making: Moderate based on impact of 57.7% Goals: Goals X1 week 1. Supine-Sit independent 2. Sit-Supine independent 3. Sit-Stand independent 4. Stand-Sit independent 5. Bed-Chair independent 6. Gait independent with walker 2 wheel up to 100 feet 7: Stairs patient able to negotiate 4 steps independently 8: Independent in Home program Plan of Care/Treatment Plan: 1-2x/day, 7 days/week x 1 week. Plan of care has been reviewed with the MANAGER AUTO providing the service under Physical Therapy direction. Initiate Physical Therapy intervention for strengthening, bed mobility, transfers, gait, stairs, balance training, use of assistive device. DISCHARGE RECOMMENDATIONS: To home once medically stable and if functional goals are met TREATMENT CODE/TIME: Moderate complexity initial evaluation 49076 time of treatment 11:10 AM 20 minutes of care NATALY McduffieT
[2021-05-30] MEDS: Ondansetron 4 MG/2 ML VIAL IVP (12:23)
[2021-05-30] MEDS: Acetaminophen 325 MG TAB PO ×2 (12:24→19:44)
[2021-05-30 12:29] LABS: HCT 29.6 % (36.0-46.0); HGB 9.6 g/dL (11.2-15.7)
[2021-05-30] MEDS: MAGNESIUM SULFATE 4 GM/100 ML BAG IVPB (13:42)
[2021-05-30] MEDS: Sucralfate 1 GM TAB PO ×2 (16:09→21:20)
[2021-05-30] MEDS: Magnesium Oxide 400 MG TAB PO (19:28)
[2021-05-31] VITALS (8 sets, daily range): BP systolic 131–161; BP diastolic 56–92; PULSE 76–95; RESP 16–18; TEMP 35.5–37.1; O2SAT 94–95
[2021-05-31] MEDS: Lactated Ringers 1,000 ML 80 ML IV (00:48)
[2021-05-31] MEDS: Refresh PLUS Eye Drops 0.4ml OU ×5 (00:55→20:32)
[2021-05-31] MEDS: Ondansetron 4 MG/2 ML VIAL IVP ×2 (00:59→10:55)
[2021-05-31] MEDS: Normal Saline Flush 10 ML SYR IVP ×6 (00:59→20:30)
[2021-05-31] MEDS: Acetaminophen 325 MG TAB PO ×3 (05:59→20:53)
[2021-05-31 07:20] LABS: Anion Gap 5.6 mmol/L (3-11); BUN 2 mg/dL (7-18); CO2 27.4 mmol/L (21.0-32.0); CREATININE 0.8 mg/dL (0.55-1.02); Calcium 8.7 mg/dL (8.5-10.1); Chloride 102 mmol/L (98-107); Glucose 123 mg/dL (74-106); Potassium 3.8 mmol/L (3.5-5.1); Sodium 135 mmol/L (136-145)
[2021-05-31] MEDS: Pantoprazole 40 MG VIAL IVP (07:39)
[2021-05-31] MEDS: FLUoxetine 10 MG TAB PO (07:40)
[2021-05-31] MEDS: Creon, Lipase 6,000 CAPCR 1 CAP PO ×3 (07:40→17:08)
[2021-05-31] MEDS: Thiamine 100 MG TAB PO (07:41)
[2021-05-31] MEDS: Metoprolol 50 MG TAB PO ×2 (07:41→20:32)
[2021-05-31] MEDS: Multivitamin TAB 1 TAB PO (07:41)
[2021-05-31] MEDS: Magnesium Oxide 400 MG TAB PO ×2 (07:41→20:32)
[2021-05-31] MEDS: amLODIPine 5 MG TAB PO (07:41)
[2021-05-31] MEDS: Folic Acid 1 MG TAB PO (07:41)
[2021-05-31] MEDS: Sucralfate 1 GM TAB PO ×4 (07:41→20:52)
[2021-05-31 07:46] LABS: ALT 49 U/L (14-59); AST 84 U/L (15-37); Albumin 2.8 g/dL (3.4-5.0); Alkaline Phosphatase 130 U/L (46-116); Bilirubin, Direct 0.7 mg/dL (0.0-0.2); Bilirubin, Total 2.1 mg/dL (0.2-1.0); Magnesium 2.1 mg/dL (1.8-2.4); Total Protein 5.8 g/dL (6.4-8.2)
--- NOTE | 2021-05-31 09:24 | PT.INNT ---
PT Notes Visit Reasons: Abdominal Pain with Emesis Pt refused PT x 2 attempts due to not feeling well.
--- NOTE | 2021-05-31 11:33 | W.PM.PROGNOT ---
Date of Service Date of service: 05/31/21 Time of Service: 11:33 Assessment and Plan Assessment and plan (1) Alcohol withdrawal delirium, acute, hypoactive: Status: Acute Assessment and plan: Continue to monitor on CIWA with prn oral/SL benzodiazepines. She does not appear to be actively withdrawing. Provide vitamin replacement. Monitor closely. (2) Epigastric pain: Status: Acute Assessment and plan: Likely alcoholic gastritis. Noted that Hemoglobin has drifted down to 9.4 from 11.0, stable yesterday. Repeat H&H tomorrow. Hematest stool. Continue PPI & carafate. (3) Nausea and vomiting: Status: Acute Assessment and plan: As above (4) Transaminitis: Status: Acute Assessment and plan: Improved. Likely due to alcoholic liver disease. Continue to monitor (5) Dehydration: Status: Acute Assessment and plan: Improved. Continue IVF in the setting of frequent watery stools and poor PO intake. (6) Hypokalemia: Status: Acute Assessment and plan: Resolved. (7) Hypomagnesemia: Status: Chronic Assessment and plan: Resolved. (8) Alcohol abuse: Status: Chronic Assessment and plan: Palliative consult pending. At this point, if the patient continues to drink, which prevents her from following up with IR for biopsy of her lung/pelvic masses, hospice might be appropriate. (9) Diarrhea: Status: Acute Assessment and plan: With multiple loose stools reported. C-diff test pending. (10) DVT prophylaxis: Status: Acute Assessment and plan: SCDs (11) Discharge planning issues: Status: Acute Assessment and plan: DNR/DNI Consult PT and palliative care Subjective Subjective Interval history since last seen: Nursing reports that Leticia is having frequent loose stools. She reports feeling fatigued. She endorses a cough, states she has been coughing for months. No wheezing or SOB. She has been up to the toilet. She states she is not eating much, nothing settles will with her. She reports that she has been vomiting, no emesis documented. Exam Narrative Exam Narrative: General: Elderly female, awakened for the visit. She is alert, answers questions appropriately. Pleasant and cooperative. HEENT: Normocephalic, traumatic, EOMI, mucous membranes moist. Heart: Heart sounds regular, nontachycardic. Lungs: Respirations appear even and unlabored, lung sounds with rales to right base. No wheezing, no coughing during visit. Abdomen: +BS, abdomen is soft, mildly tender on gentle palpation, nondistended Extremities: Moves all 4 extremities freely, no edema BLE's Objective Last Vital Signs Temp 36.3 C L 05/31/21 07:27 Pulse 85 05/31/21 07:27 Resp 16 05/31/21 07:27 BP 149/85 H 05/31/21 07:27 Pulse Ox 95 05/31/21 07:27 Laboratory Results - last 24 hr 05/30/21 05/31/21 05/31/21 12:20 06:45 06:45 Hgb 9.6 L Hct 29.6 L Sodium 135 L Potassium 3.8 D Chloride 102 Carbon Dioxide 27.4 Anion Gap 5.6 BUN 2 L Creatinine 0.8 Estimated GFR/1.73 m2 >= 60.00 Glucose 123 H Calcium 8.7 Magnesium 2.1 Total Bilirubin 2.1 H Conjugated Bilirubin 0.7 H AST 84 H ALT 49 Alkaline Phosphatase 130 H Total Protein 5.8 L Albumin 2.8 L PAWSS Have you Been Recently Intoxicated or Drunk Within the Last 30 days?: Yes Have you Ever Experienced Previous Episodes of Alcohol Withdrawal?: Yes Have you ever Experienced Withdrawal Seizures?: No Have you ever Experienced Delirium Tremens(DT)s?: No Have you ever undergone Alcohol Rehabilitation Treatment (i.e, inpt ot outpatient treatment programs)?: Yes Have you ever Experienced Blackouts?: No Have you ever Combined Alcohol with other Downers within the last 90 days?: No Have you ever Combined Alcohol with any other Substance of Abuse during the last 90 days?: No Positive Blood Alcohol level on Presentation? [PCS.BAL]: No Evidence of Increased Autonomic Activity (i.e. HR>120, tremor, sweating, agitation, nausea)?: Yes Result: 4
[2021-05-31 12:06] LABS: C Diff PCR Positive (Negative)
[2021-05-31] MEDS: Fidaxomicin 200 MG TAB PO ×2 (12:55→20:32)
[2021-05-31] MEDS: Cholestyramine/Aspartame PKT 1 EACH PO (18:17)
[2021-05-31] MEDS: guaiFENesin 200 MG/10 ML CUP 100 MG PO (20:31)
[2021-05-31] MEDS: Gabapentin 100 MG CAP PO (21:54)
[2021-06-01 03:47] VITALS: BP 130/84; PULSE 80; RESP 16; TEMP 37; O2SAT 95
[2021-06-01 07:04] LABS: HCT 30.3 % (36.0-46.0); HGB 9.7 g/dL (11.2-15.7); MCH 33.6 pg (27.0-33.0); MCV 104.8 fL (80-95); MPV 10.4 fL (8.0-11.0); Platelet Count 79 10^3/uL (130-400); RBC 2.89 10^6/uL (3.93-5.22); RDW-SD 48.7 fL; WBC 2.36 10^3/uL (4.4-10.8)
[2021-06-01 07:35] VITALS: BP 154/74; PULSE 68; RESP 16; TEMP 36.7; O2SAT 95
[2021-06-01] MEDS: Normal Saline Flush 10 ML SYR IVP ×3 (07:45→21:41)
[2021-06-01] MEDS: FLUoxetine 10 MG TAB PO (07:45)
[2021-06-01] MEDS: Fidaxomicin 200 MG TAB PO ×2 (07:46→20:35)
[2021-06-01] MEDS: Thiamine 100 MG TAB PO (07:46)
[2021-06-01] MEDS: Magnesium Oxide 400 MG TAB PO ×2 (07:46→20:31)
[2021-06-01] MEDS: Creon, Lipase 6,000 CAPCR 1 CAP PO ×3 (07:46→16:55)
[2021-06-01] MEDS: Famotidine 20 MG TAB PO (07:46)
[2021-06-01] MEDS: Sucralfate 1 GM TAB PO ×4 (07:46→21:38)
[2021-06-01] MEDS: Folic Acid 1 MG TAB PO (07:46)
[2021-06-01] MEDS: Metoprolol 50 MG TAB PO ×2 (07:46→20:33)
[2021-06-01] MEDS: Multivitamin TAB 1 TAB PO (07:46)
[2021-06-01] MEDS: amLODIPine 5 MG TAB PO (07:46)
[2021-06-01] MEDS: Refresh PLUS Eye Drops 0.4ml OU ×4 (07:47→20:34)
--- NOTE | 2021-06-01 08:02 | W.PALLCONSUL ---
Date of service: 06/01/21 Time of Service: 08:02 History of Present Illness History of Present Illness Chief Complaint: abdominal pain, alcoholism Narrative: From H and P: History of Present Illness Chief Complaint: Abdominal pain Narrative: This is a 76 yo female with history of alcohol abuse, pancreatitis, HTN, HLD, PTSD, Depression, presacral mass, AMBER, hypomagnesemia, and urinary tract infections presents with report of nausea and vomiting and abd pain. Denied any fever or chills. She stated that her last drink of alcohol was 4 days ago although her blood alcohol last evening was 213 at 11 PM when she presented then to the ED (discharged to home). She denies any falls or injuries. No chest pain or shortness of breath. + generallized weakness and tremulouness. Denies any diarrhea. Denies No hematemesis or blood in stools. Denies suicidal or homicidal ideation Her blood alcohol level was negative. WBC count normal. Hgb 11. Platelets 142. K 3.4. Creatinine 1. Glucose 227. Bili 2.6. AST 111. ALT 65. Troponin neg. Lipase 69. Interim Hx: I saw Leticia this morning. She states that she feels lousy, her stomach hurts. She is diagnosed with C. difficile. I came back this evening and Leticia had a better day. At the time of my evening appointment she was anxious to go home Consults Consult date: 06/01/21 Requesting physician: Laly Dumont Assessment and Plan Assessment and plan (1) Alcohol withdrawal delirium, acute, hypoactive: Status: Ruled-out (2) Epigastric pain: Status: Acute (3) Diarrhea: Status: Acute (4) Nausea and vomiting in adult: Status: Resolved (5) C. difficile colitis: Status: Resolved (6) Palliative care patient: Status: Acute Assessment and plan: C. difficile?presently treated with antibiotics. She is on 3 doses of 19. we will continue with hydration and to watch her Alcohol withdrawal protocol in place Unfortunately Leticia is a frequent patient on MedSurg. Hopefully will be able to get her better and then have her return home or to an assisted living situation. I will continue to meet with Leticia. Today was not very fruitful although staff did state that she was in general doing better than usual. Review of Systems Narrative: Stomach pain, weakness, falls, no chest pain, she does have some shortness of breath, memory lapses [facility] Medical History (Updated 06/01/21 @ 16:06 by Kimmy Sierra NP) Acute alcoholism Acute UTI Adjustment disorder with depressed mood AMBER (acute kidney injury) Alcohol abuse Alcohol intoxication Alcohol intoxication Alcoholic gastritis without bleeding Alcoholic ketosis Allergic rhinitis Anemia Back pain, chronic Blunt head trauma Blunt trauma of multiple sites of trunk Calcific tendinitis of left shoulder CAP (community acquired pneumonia) Cataract (11/07/15) Cervical radicular pain neck pain and DJD [facility] Cervical strain 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) pls refrain from alcohol Chronic alcoholism she will not stop drinking unless she checks with me, so that we can help her avert withdrawal I do not think she is capable on her own--she would need placement to achieve required goal of 3 months of sobriety Chronic diarrhea Closed displaced fracture of proximal phalanx of right index finger with routine healing (06/03/17) Closed right humeral fracture Contusion of left little finger Corneal ulcer, right (~08/23/18) 08/23/18; [facility] Dehydration Depression Diarrhea Difficult intravenous access Multiple IV attempts, usually requires ultrasound placement. Discharge planning issues DVT prophylaxis Dystrophic nail Elev transaminase/LDH due to alcohol Epigastric abdominal pain Facial fracture due to fall Facial laceration Fall as cause of accidental injury at home as place of occurrence Fall at home Fracture of humerus, left, closed Genital herpes simplex recurrent gential; suppressive Valtrex GERD (gastroesophageal reflux disease) GI bleed (12/20/16) Head contusion Headache History of alcohol abuse Humerus fracture (09/12/19) Right Hyperlipidemia Hypertension Hypokalemia Hypokalemia Hypokalemia Hypomagnesemia Incidental lung nodule, greater than or equal to 8mm 1cm, spiculated, stable for many years, recommend f/u in 6 mo Intractable vomiting Leukopenia Macrocytosis (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 Multiple contusions Multiple fractures of ribs Multiple rib fractures [facility] Nausea and vomiting in adult Non-cardiac chest pain (09/21/16) [facility] [place] 09/21/16 NEGATIVE MP Osteoarthritis Osteopenia Palliative care patient (03/21/17) Pancreatitis, alcoholic, acute Peripheral edema Photophobia of right eye Pleural effusion on left [facility]11/[facility] Pneumonia Presacral mass (~09/15/18) 09/15/18 [facility] Rash Rib pain on right side Right rib fracture Sacral mass Sciatica right, epidural injuections PainCare Suicidal ideation Tendinitis of left rotator cuff Tubular adenoma of colon (01/28/17) Urinary incontinence 01/24/13 urethral suspension and sling at [facility] [place] (bladder suspension 1991) UTI (urinary tract infection) UTI (urinary tract infection) 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 Bladder repair. Ligation of fallopian tube Repair bladder injury, simple Family History Mother No problems noted. Father , DROWNED at age 50. No problems noted. Sister Personal history of malignant neoplasm MELANOMA Sister No problems noted. Grandfather Personal history of malignant neoplasm STOMACH Grandfather Personal history of malignant neoplasm PROSTATE Grandmother Heart disease [place] Acute ill-defined cerebrovascular disease Grandmother Personal history of malignant neoplasm UTERINE Aunt , [place] Heart disease TN Aunt , [place] Heart disease Brother No problems noted. Social History Smoking/Tobacco Use Status: Never Smoking risk assessment performed?: Yes Alcohol Intake: current Alcohol Intake frequency: 3 or more drinks per day Alcohol type: hard liquor Drug use: Never Substance use type: does not use Current gender identity: female Do you feel safe at home: Yes Do you feel safe in your relationship?: Yes Additional Social history: Pt has been binge drinking since 4am Exam Narrative Exam Narrative: Leticia is lying in bed. She is talking in short sentences. Her heart is slightly fast at about 105. There is a systolic murmur. Her lungs diminished breath sounds. Abdomen good bowel sounds and was tender throughout Results Last Vital Signs Temp 98.1 F 06/01/21 07:35 Pulse 68 06/01/21 07:35 Resp 16 06/01/21 07:35 BP 154/74 H 06/01/21 07:35 Pulse Ox 95 06/01/21 07:35 Labs Result diagrams: 06/01/21 06:20 06/01/21 06:20 Labs: Laboratory Results - last 24 hr 05/31/21 06/01/21 10:13 06:20 WBC 2.36 L RBC 2.89 L Hgb 9.7 L Hct 30.3 L MCV 104.8 H MCH 33.6 H MCHC 32.0 RDW 13.0 Plt Count 79 L MPV 10.4 Stl C.difficile Tox PCR Positive A
[2021-06-01 09:45] LABS: Anion Gap 4.4 mmol/L (3-11); BUN 4 mg/dL (7-18); CO2 29.6 mmol/L (21.0-32.0); CREATININE 0.9 mg/dL (0.55-1.02); Calcium 8.8 mg/dL (8.5-10.1); Chloride 105 mmol/L (98-107); Glucose 99 mg/dL (74-106); Potassium 3.4 mmol/L (3.5-5.1); Sodium 139 mmol/L (136-145)
[2021-06-01] MEDS: Acetaminophen 325 MG TAB PO (09:54)
[2021-06-01] MEDS: Cholestyramine/Aspartame PKT 1 EACH PO ×2 (11:34→20:35)
[2021-06-01 11:40] VITALS: BP 136/76; PULSE 81; RESP 18; TEMP 36.3; O2SAT 95
--- NOTE | 2021-06-01 12:36 | PT.INTREAT ---
Date of service: 06/01/21 Time of Service: 10:33 PT Notes Visit Reasons: Abdominal Pain with Emesis Inpatient Physical Therapy Treatment Note [facility] Date: 06/01/2021 PRECAUTIONS: Fall, Activity as tolerated SUBJECTIVE: Leticia states that she is feeling a little better than yesterday. She is agreeable to participating in PT. OBJECTIVE: PAIN: No c/o pain BED MOBILITY/TRANSFERS Supine-sit: I Sit-supine: I Sit-stand: S Stand-sit: S Bed-Chair: S GAIT Assistive Device: FWW Weight bearing: Full Assist: S Distance: 30' x2 in a.m.; 8' in p.m. Deviation: Slow pace, short step height and length; post-ambulatory nausea in a.m. THEREX: Patient was instructed in a seated LE strengthening program in a.m. and a seated UE and LE strengthening program in p.m., as per flow sheet. ASSESSMENT: Patient tolerated session with complaint of increased nausea and fatigue following gait training. She demonstrates independence with bed mobility at this time. Patient would benefit from continued global strengthening for improved mobility. PLAN: Continue with global strengthening and gait training for improved mobility. TREATMENT CODE/TIME: Session 1: 19 minutes; 11592 (10:33) Session 2: 19 minutes; 97051 (14:20)
[2021-06-01 16:05] VITALS: BP 125/74; PULSE 71; RESP 18; TEMP 36.6; O2SAT 97
--- NOTE | 2021-06-01 16:05 | W.PM.PROGNOT ---
Date of Service Date of service: 06/01/21 Time of Service: 16:05 Assessment and Plan Assessment and plan (1) Alcohol withdrawal delirium, acute, hypoactive: Status: Ruled-out Assessment and plan: Continue to monitor on CIWA with prn oral/SL benzodiazepines. She is not actively withdrawing. Provide vitamin replacement. Monitor closely. (2) Epigastric pain: Status: Acute Assessment and plan: Likely alcoholic gastritis. Noted that Hemoglobin has drifted down to 9.4 from 11.0, stable yesterday. Repeat H&H tomorrow. Hematest stool. Continue PPI & carafate. (3) Nausea and vomiting: Status: Acute Assessment and plan: As above (4) Transaminitis: Status: Acute Assessment and plan: Improved. Likely due to alcoholic liver disease. Continue to monitor (5) Dehydration: Status: Acute Assessment and plan: Improved. Continue IVF in the setting of frequent watery stools and poor PO intake. (6) Hypokalemia: Status: Acute Assessment and plan: Resolved. (7) Hypomagnesemia: Status: Chronic Assessment and plan: Resolved. (8) Alcohol abuse: Status: Chronic Assessment and plan: Palliative consult pending. At this point, if the patient continues to drink, which prevents her from following up with IR for biopsy of her lung/pelvic masses, hospice might be appropriate. (9) Diarrhea: Status: Acute Assessment and plan: With multiple loose stools reported. C-diff test positive (10) DVT prophylaxis: Status: Acute Assessment and plan: SCDs (11) Discharge planning issues: Status: Acute Assessment and plan: DNR/DNI Consult PT and palliative care discussed with DR Dumont Subjective Subjective Patient reports: no new complaints, feels better, tolerating liquids well, tolerating a regular diet, diarrhea and afebrile; denies shortness of breath Exam Const General: cooperative and no acute distress Orientation: oriented x3 Eyes Sclera: sclerae normal Pupils: PERRL Neck Neck: full ROM Resp Effort & Inspection: normal respiratory effort Auscultation: clear to auscultation bilaterally Cardio Rate: regular rate Rhythm: regular rhythm GI Inspection: non-distended Palpation: soft and tender in the epigastrum Skin General skin exam: no rashes or lesions noted Neuro General: no focal motor deficits Cranial Nerves: facial strength normal Speech: speech normal Extrem General: no pedal edema and no calf tenderness Psych Appearance: grossly normal Speech and Movement: speech clear Affect: blunted Objective Last Vital Signs Temp 36.3 C L 06/01/21 11:40 Pulse 81 06/01/21 11:40 Resp 18 06/01/21 11:40 BP 136/76 06/01/21 11:40 Pulse Ox 95 06/01/21 11:40 Laboratory Results - last 24 hr 06/01/21 06/01/21 06:20 06:20 WBC 2.36 L RBC 2.89 L Hgb 9.7 L Hct 30.3 L MCV 104.8 H MCH 33.6 H MCHC 32.0 RDW 13.0 Plt Count 79 L MPV 10.4 Sodium 139 Potassium 3.4 L Chloride 105 Carbon Dioxide 29.6 Anion Gap 4.4 BUN 4 L Creatinine 0.9 Estimated GFR/1.73 m2 >= 60.00 Glucose 99 Calcium 8.8 Magnesium 2.0 PAWSS Have you Been Recently Intoxicated or Drunk Within the Last 30 days?: Yes Have you Ever Experienced Previous Episodes of Alcohol Withdrawal?: Yes Have you ever Experienced Withdrawal Seizures?: No Have you ever Experienced Delirium Tremens(DT)s?: No Have you ever undergone Alcohol Rehabilitation Treatment (i.e, inpt ot outpatient treatment programs)?: Yes Have you ever Experienced Blackouts?: No Have you ever Combined Alcohol with other Downers within the last 90 days?: No Have you ever Combined Alcohol with any other Substance of Abuse during the last 90 days?: No Positive Blood Alcohol level on Presentation? [PCS.BAL]: No Evidence of Increased Autonomic Activity (i.e. HR>120, tremor, sweating, agitation, nausea)?: Yes Result: 4
--- NOTE | 2021-06-01 16:18 | PHA.REVIEW ---
Pharmacy Admission Review - Admission Clinical Review (Last Updated 05/31/21 @ 11:49 by Jessie Cowan NP) Diarrhea (Acute) Epigastric pain (Acute) Nausea and vomiting (Acute) Dehydration (Acute) Hypokalemia (Acute) Transaminitis (Acute) DVT prophylaxis (Acute) Discharge planning issues (Acute) Penicillins Allergy (Mild, Verified 05/28/21 19:16) Rash ramipril Allergy (Unknown, Verified 05/28/21 19:16) ITCHING meperidine [From Demerol] Adverse Reaction (Severe, Verified 05/28/21 19:16) Nausea bupropion Adverse Reaction (Mild, Verified 05/28/21 19:16) GI upset AMBER Inhibitors Adverse Reaction (Unknown, Verified 05/28/21 19:16) COUGH alendronate sodium Adverse Reaction (Unknown, Verified 05/28/21 19:16) GI Distress clarithromycin Adverse Reaction (Unknown, Verified 05/28/21 19:16) intolerant paroxetine Adverse Reaction (Unknown, Verified 05/28/21 19:16) Diarrhea Resuscitation Status DNR/DNI Height 5 ft 1 in Weight 57.2 kg - Renal Dosing Renal Dosing: BUN 4 mg/dL (7-18) L 06/01/21 06:20 Creatinine 0.9 mg/dL (0.55-1.02) 06/01/21 06:20 Medications needing adjustments: Reviewed (Crcl ~40.75 mL/min. It is recommended to use cholestyramine with caution in patients with renal impairment as it may cause hyperchloremic acidosis.) - Anticoagulation Anticoagulation: Hgb 9.7 g/dL (11.2-15.7) L 06/01/21 06:20 Hct 30.3 % (36.0-46.0) L 06/01/21 06:20 Plt Count 79 10^3/uL (130-400) L 06/01/21 06:20 Creatinine 0.9 mg/dL (0.55-1.02) 06/01/21 06:20 DVT Prophylaxis: Reviewed (SCDs ordered) Therapeutic Anticoagulation: N/A - Opiate Usage Evaluate Pain Scale/Pains Meds: N/A - Relevant Labs Sodium 139 mmol/L (136-145) 06/01/21 06:20 Potassium 3.4 mmol/L (3.5-5.1) L 06/01/21 06:20 Chloride 105 mmol/L (98-107) 06/01/21 06:20 Magnesium 2.0 mg/dL (1.8-2.4) 06/01/21 06:20 Electrolytes, C-Reactive P, ESR: Intervened (K+ is a little low, will ask provider about replacement.) - DM Control DM Control: Glucose 99 mg/dL (74-106) 06/01/21 06:20 Insulin Dosing: N/A - Heart Failure/MO Heart Failure/MO: Troponin I < 0.05 ng/mL (<0.06) 05/29/21 09:25 EF%, AMBER's, B-Blockers, Diuretics: Reviewed - BP Control BP Control: Blood Pressure 125/74 Blood Pressure 136/76 Blood Pressure 154/74 If elevated: Reviewed (BP has been normal to high most of admission so far.) - Qtc Review If Elevated: Reviewed (QTc 496 on admission, pt currently has ondansetron and fluoxetine ordered) - IV to PO Switch IV Medications: Reviewed - Home Meds Home Med List reviewed: Intervened (Provider made aware of discrepancies between external med history and home med list in [employer], continue on current meds as pt is improving per provider.) Relevent Home Meds Not ordered & why?: All home meds currently ordered. - Current meds Current Medication Order Review: Reviewed - Comments Comments/Follow Ups: Watch BP, SCr, plts, K+ and for med changes (possible renal dose adjustments, avoid additional QT prolonging meds). Antibiotic Activity - Pharmacy Antibiotic Review Pharmacy Antibiotic Activity: Reviewed, no change (Fidaxomycin continues for C.diff (day 2 of 10))
[2021-06-01] MEDS: Potassium Chloride 20 MEQ TABCR 40 MEQ PO (17:50)
--- NOTE | 2021-06-01 18:43 | PDOC.CMPRO ---
- If Service Date Differs Date of service: 06/01/21 Time of Service: 18:43 Care Management Progress Note S/O: Leticia was sitting up in her chair when CM met with her. The provider was also in the room. Leticia stated that she is feeling much better than she had yesterday, but she is not feeling ready for discharge. Per provider, her labs will be rechecked tomorrow, and she may be ready for discharge, if she continues to improve. CM will continue to follow. A: Leticia is a 76 year old female admitted to [facility] on 05/29/21 with abdominal pain with emesis. P: Anticipate Leticia will be discharged home with a resumption of RN services when medically cleared by provider. She will follow up with her community providers and plan of care as directed. Leticia will transport home via [facility] private vehicle coordinated by CM. CM will continue to support Letciia and any discharge planning needs.
[2021-06-01 19:25] VITALS: BP 125/74; PULSE 70; RESP 18; TEMP 36.5; O2SAT 94
[2021-06-01] MEDS: Gabapentin 100 MG CAP PO (21:38)
[2021-06-01] MEDS: LORazepam 2 MG/ML VIAL 1 MG IVP (21:39)
[2021-06-01 23:20] VITALS: BP 125/74; PULSE 70; RESP 20; TEMP 36.5; O2SAT 94
[2021-06-02] MEDS: Acetaminophen 325 MG TAB PO ×2 (00:22→12:29)
[2021-06-02] MEDS: Refresh PLUS Eye Drops 0.4ml OU ×3 (00:23→11:07)
[2021-06-02 03:45] VITALS: BP 124/74; PULSE 70; RESP 20; TEMP 36.5; O2SAT 95
[2021-06-02 07:32] VITALS: BP 154/85; PULSE 80; RESP 18; TEMP 36.4; O2SAT 94
[2021-06-02 07:35] LABS: Anion Gap 4.8 mmol/L (3-11); BUN 10 mg/dL (7-18); CO2 28.2 mmol/L (21.0-32.0); CREATININE 0.9 mg/dL (0.55-1.02); Calcium 9.6 mg/dL (8.5-10.1); Chloride 103 mmol/L (98-107); Glucose 99 mg/dL (74-106); Magnesium 1.8 mg/dL (1.8-2.4); Sodium 136 mmol/L (136-145)
[2021-06-02] MEDS: Normal Saline Flush 10 ML SYR IVP (08:01)
[2021-06-02] MEDS: Sucralfate 1 GM TAB PO ×2 (08:02→11:08)
[2021-06-02] MEDS: Fidaxomicin 200 MG TAB PO (08:02)
[2021-06-02] MEDS: Thiamine 100 MG TAB PO (08:02)
[2021-06-02] MEDS: FLUoxetine 10 MG TAB PO (08:02)
[2021-06-02] MEDS: Multivitamin TAB 1 TAB PO (08:02)
[2021-06-02] MEDS: amLODIPine 5 MG TAB PO (08:02)
[2021-06-02] MEDS: Folic Acid 1 MG TAB PO (08:02)
[2021-06-02] MEDS: Creon, Lipase 6,000 CAPCR 1 CAP PO ×2 (08:02→11:08)
[2021-06-02] MEDS: Famotidine 20 MG TAB PO (08:02)
[2021-06-02] MEDS: Magnesium Oxide 400 MG TAB PO (08:02)
[2021-06-02] MEDS: Metoprolol 50 MG TAB PO (08:02)
--- NOTE | 2021-06-02 08:33 | PCPN_ITS ---
Date of service: 06/02/21 Time of Service: 07:33 Assessment and Plan Assessment and plan (1) Diarrhea: Status: Acute (2) Alcohol withdrawal delirium, acute, hypoactive: Status: Ruled-out (3) Epigastric pain: Status: Acute (4) Palliative care patient: Status: Acute Assessment and plan: I did talk about alcohol and how it was changing her life for the worst. At this point she is not willing to consider going to a facility for alcohol counseling. She wants to stay with her animals. She seems to be improving at a steady rate which is good. I am glad that the diarrhea has improved. She seemed engaged during our talking time. Overall she will probably be ready to go back home in the next day or 2 Subjective Subjective Interval history since last seen: Leticia states she is feeling better today. She had one very small bowel movement yesterday. Her abdomen still bothers her a lot. She is quite upset with her caregiver at this time and she feels like she is be ing treated like a child. She repeatedly stated that she would not go to a nursing or leave her animals. Exam Const General: anxious and disheveled Nutritional Appearance: average body habitus Orientation: oriented x3 Resp Effort & Inspection: normal respiratory effort and able to speak in complete sentences Auscultation: clear to auscultation bilaterally Cardio Rate: tachycardic GI Inspection: normal to inspection Palpation: soft, no hepatosplenomegaly, guarding and other (Mildly tender throughout) Auscultation: normal bowel sounds Objective Last Vital Signs Temp 97.5 F L 06/02/21 07:32 Pulse 80 06/02/21 07:32 Resp 18 06/02/21 07:32 BP 154/85 H 06/02/21 07:32 Pulse Ox 94 06/02/21 07:32 Laboratory Results - last 24 hr 06/01/21 06/02/21 06:20 06:40 Sodium 139 136 Potassium 3.4 L 4.0 Chloride 105 103 Carbon Dioxide 29.6 28.2 Anion Gap 4.4 4.8 BUN 4 L 10 D Creatinine 0.9 0.9 Estimated GFR/1.73 m2 >= 60.00 >= 60.00 Glucose 99 99 Calcium 8.8 9.6 Magnesium 2.0 1.8
--- NOTE | 2021-06-02 10:12 | W.PM.DS.N ---
Date of service: 06/02/21 Time of Service: 10:13 DS: Diagnosis Discharge Diagnosis (1) C. difficile colitis: Start date: 06/02/21 Start time: 10:17 Status: Acute Asessment and Plan: Multiple bouts, found to have positive this admission as well, will not stop drinking alcohol House is not sanitary. Will likely continue to have positive cdiff Being discharged home on dificid will need to finish 6 and a half days worth Can take imodium as needed (2) Epigastric pain: Start date: 06/02/21 Start time: 10:16 Status: Acute Asessment and Plan: From alcoholic gastritis. HH has been stable Continue PPI and carafate. (3) Diarrhea: Start date: 06/02/21 Start time: 10:21 Status: Acute Asessment and Plan: as a stevie (4) Nausea and vomiting in adult: Start date: 06/02/21 Start time: 10:21 Status: Resolved Asessment and Plan: On admission with n/v requiring multiple visits, due to alcohol. She was admitted for IV hydration and electrolyte replacement. Electrolytes normal at this time (5) Palliative care patient: Start date: 06/02/21 Start time: 10:23 Status: Acute Asessment and Plan: Continue as outpatient discussed with Dr. Dumont Discharge Plan Disposition Patient Disposition: HOME Condition: Good Discharge Details Reason For Visit: Abdominal Pain with Emesis Admit Date/Time: 05/29/21 13:38 Admit Provider: Aydin Joy Attending Provider: Aydin Joy Primary Care Provider: Lavelle Galindo Hospital Course Hospital Course: 76 y.o female with significant EOTH use, gastritis, pancreatitis, presacral mass, ambulatory dysfunction, PTSD, admitted to [facility] for continuation of n/v with electrolyte depletion. She was also found to be cdiff positive. She was placed on dificid. She was hydrated with IVF. Electrolytes have been replaced. Initially she was thought to be going through ETOH w/d however she has never w/d and this was not the case at this time, either. PT states she is at baseline, will discharge her home. Resume HH services. Finish 6 days and 1 dose dificid, she can take imodium as needed for diarrhea. F/u with PCP in 1-2 weeks. Home Meds and New Rx's Prescriptions: New fidaxomicin 200 mg tablet 200 mg PO BID Qty: 15 RF: 0 famotidine 20 mg Tablet 20 mg PO DAILY Qty: 30 RF: 0 gabapentin 100 mg Capsule 100 mg PO HS Qty: 30 RF: 0 Continued Xiidra 5 % dropperette 1 drp ophthalmic (eye) BID RF: 0 ondansetron 4 mg tablet,disintegrating 4 mg PO Q8H PRN (Reason: nausea and vomiting) Qty: 20 RF: 0 Ensure Active High Protein Liquid 414 ml PO DAILY Qty: 61178 RF: 11 ipratropium-albuterol 0.5 mg-3 mg(2.5 mg base)/3 mL solution for nebulization 3 ml IH QID PRN (Reason: shortness of breath) Qty: 90 RF: 3 metoprolol tartrate 50 mg tablet 50 mg PO BID Qty: 180 RF: 3 multivitamin [Multiple Vitamins] Tablet 1 tab PO DAILY Qty: 90 RF: 3 thiamine HCl (vitamin B1) 100 mg tablet 100 mg PO DAILY Qty: 90 RF: 3 folic acid 1 mg tablet 1 mg PO DAILY Qty: 90 RF: 3 fluoxetine 10 mg tablet 10 mg PO DAILY Qty: 30 RF: 1 sucralfate 1 gram tablet 1 g PO AC & HS Qty: 120 RF: 11 Refresh Plus 0.5 % Dropperette 1 drp OU Q4H WHILE AWAKE Qty: 30 RF: 0 Restasis 0.05 % Dropperette 0.4 ml OU BID Qty: 10 RF: 0 amlodipine 5 mg tablet 5 mg PO DAILY RF: 0 cholestyramine-aspartame [Prevalite] 4 gram Powder In Packet 1 ea PO BID PRN PRNQty: 60 RF: 0 Creon 6,000-19,000 -30,000 unit Capsule,Delayed Release(Dr/Ec) 1 cap PO QMEALS Qty: 90 RF: 0 Discharge Instructions Instructions: Gastritis (DC), C. Diff (Clostridioides Difficile) Infection (DC), Acute Nausea and Vomiting (DC) Additional Instructions: Resume HH services STOP DRINKING F/u PCP 1-2 weeks Stand Alone Forms: Nursing Discharge Form Referrals: Lavelle Galindo [Primary Care Provider] - 06/10/21 1:40 pm (Keep current follow up appointment with Dr. Galindo.) Activity:: Activity as Tolerated Equipment/Supplies:: No Equipment Needed Diet:: As Tolerated Discharge Orders Discharge Orders: Discharge Order (Routine); Ordered 06/02/21 Ordered By: Pat Navarro DS: Summary Time Spent with Patient providing and/or coordinating discharge services: Less than 30 minutes Status at Discharge Functional status at discharge: independent ambulation Overall status at discharge: patient is back to baseline Mental Status: mental status grossly normal and other (flat) Speech and Movement: speech clear Mood: congruent mood and other (flat) Affect: blunted Exam Const General: cooperative, no acute distress and ill appearing chronically Nutritional Appearance: average body habitus Orientation: oriented x3 Eyes Sclera: sclerae normal Pupils: PERRL Neck Neck: full ROM and no JVD Resp Effort & Inspection: normal respiratory effort Auscultation: clear to auscultation bilaterally Cardio Rate: regular rate Rhythm: regular rhythm Heart Sounds: S1 normal and S2 normal GI Inspection: non-distended Palpation: soft and tender in the epigastrum Skin General skin exam: no rashes or lesions noted Neuro General: no focal motor deficits Cranial Nerves: facial strength normal Speech: speech normal Extrem General: no pedal edema and no calf tenderness Psych Appearance: grossly normal Mental Status: mental status grossly normal and other (flat) Speech and Movement: speech clear Mood: congruent mood and other (flat) Affect: blunted DS: Data Vitals/I&O Vitals and I&O: Vital Signs Temperature 36.4 C L 06/02/21 07:32 Temperature Source Tympanic 06/02/21 07:32 Pulse 80 06/02/21 07:32 Pulse Rhythm Regular 06/02/21 08:21 Pulse Strength Strong 05/29/21 10:43 Pulse 111 H 05/29/21 11:40 Respiratory Rate 18 06/02/21 07:32 Respiratory Effort Non-Labored 06/02/21 08:21 Respiratory Depth Normal 06/02/21 08:21 Respiratory Pattern Normal 06/02/21 08:21 Blood Pressure 154/85 H 06/02/21 07:32 Blood Pressure Mean 84 05/29/21 11:00 Blood Pressure Position Supine 05/29/21 10:43 Pulse Oximetry 94 06/02/21 07:32 Respiratory End-tidal CO2 35 05/29/21 13:00 Oxygen Delivery Method Room Air 06/02/21 07:32 Oxygen Flow Rate 0 06/02/21 07:32 Pain Level 5 06/02/21 07:32 Comment 05/31/21 03:17 Intake & Output 06/01/21 06/01/21 06/02/21 11:59 23:59 11:59 Intake Total 1050.5 / 1170.5 120 / 1170.5 110 / 110 Output Total 50 / 50 Balance 1050.5 / 1120.5 70 / 1120.5 110 / 110 Weight 57.2 kg Intake: IV 1050.5 / 1070.5 20 / 1070.5 Oral 100 / 100 100 / 100 Output: Urine 50 / 50 Other: Urine Color Yellow Yellow Yellow Urine Appearance Clear Cloudy Clear Urine Odor Strong Normal Comment pT dry at this time pT was incont and voided in commode. urine mixed with stool. Stool Size Moderate Small Stool Characteristics Soft Soft Formed Brown Brown Voiding Methods Diaper Bedside Commode Bedside Commode Incontinent Diaper Incontinent Data Completed and Pending Labs on day of discharge: Labs from last 24 hours 06/02/21 06:40 Sodium 136 Potassium 4.0 Chloride 103 Carbon Dioxide 28.2 Anion Gap 4.8 BUN 10 D Creatinine 0.9 Estimated GFR/1.73 m2 >= 60.00 Glucose 99 Calcium 9.6 Magnesium 1.8 [facility] Medical History (Updated 06/02/21 @ 10:17 by Pat Navarro NP) Acute alcoholism Acute UTI Adjustment disorder with depressed mood AMBER (acute kidney injury) Alcohol abuse Alcohol intoxication Alcohol intoxication Alcoholic gastritis without bleeding Alcoholic ketosis Allergic rhinitis Anemia Back pain, chronic Blunt head trauma Blunt trauma of multiple sites of trunk Calcific tendinitis of left shoulder CAP (community acquired pneumonia) Cataract (11/07/15) Cervical radicular pain neck pain and DJD [facility] clinic Cervical strain 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) pls refrain from alcohol Chronic alcoholism she will not stop drinking unless she checks with me, so that we can help her avert withdrawal I do not think she is capable on her own--she would need placement to achieve required goal of 3 months of sobriety Chronic diarrhea Closed displaced fracture of proximal phalanx of right index finger with routine healing (06/03/17) Closed right humeral fracture Contusion of left little finger Corneal ulcer, right (~08/23/18) 08/23/18; [facility] Dehydration Depression Diarrhea Difficult intravenous access Multiple IV attempts, usually requires ultrasound placement. Discharge planning issues DVT prophylaxis Dystrophic nail Elev transaminase/LDH due to alcohol Epigastric abdominal pain Facial fracture due to fall Facial laceration Fall as cause of accidental injury at home as place of occurrence Fall at home Fracture of humerus, left, closed Genital herpes simplex recurrent gential; suppressive Valtrex GERD (gastroesophageal reflux disease) GI bleed (12/20/16) Head contusion Headache History of alcohol abuse Humerus fracture (09/12/19) Right Hyperlipidemia Hypertension Hypokalemia Hypokalemia Hypokalemia Hypomagnesemia Incidental lung nodule, greater than or equal to 8mm 1cm, spiculated, stable for many years, recommend f/u in 6 mo Intractable vomiting Leukopenia Macrocytosis (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 Multiple contusions Multiple fractures of ribs Multiple rib fractures 03/11/19 [facility] Nausea and vomiting in adult Non-cardiac chest pain [place]09/21/16[place] [facility] [place] NEGATIVE MP Osteoarthritis Osteopenia Palliative care patient (03/21/17) Pancreatitis, alcoholic, acute Peripheral edema Photophobia of right eye Pleural effusion on left 03/11/19 [facility] Pneumonia Presacral mass (~09/15/18) 09/15/18 [facility] Rash Rib pain on right side Right rib fracture Sacral mass Sciatica right, epidural injuections PainCare Suicidal ideation Tendinitis of left rotator cuff Tubular adenoma of colon (01/28/17) Urinary incontinence 01/24/13 [place] [facility] [place] UTI (urinary tract infection) UTI (urinary tract infection) 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 Bladder repair. Ligation of fallopian tube Repair bladder injury, simple Family History Mother No problems noted. Father , DROWNED at age 50. No problems noted. Sister Personal history of malignant neoplasm MELANOMA Sister No problems noted. Grandfather Personal history of malignant neoplasm STOMACH Grandfather Personal history of malignant neoplasm PROSTATE Grandmother Heart disease [place] Acute ill-defined cerebrovascular disease Grandmother Personal history of malignant neoplasm UTERINE Aunt , [place] Heart disease NV Aunt , [place] Heart disease Brother No problems noted. Social History Smoking/Tobacco Use Status: Never Smoking risk assessment performed?: Yes Alcohol Intake: current Alcohol Intake frequency: 3 or more drinks per day Alcohol type: hard liquor Drug use: Never Substance use type: does not use Current gender identity: female Do you feel safe at home: Yes Do you feel safe in your relationship?: Yes Additional Social history: Pt has been binge drinking since 4am
[2021-06-02] MEDS: Cholestyramine/Aspartame PKT 1 EACH PO (11:07)
--- NOTE | 2021-06-02 15:32 | PT.INTREAT ---
Date of service: 06/02/21 Time of Service: 11:37 PT Notes Visit Reasons: Abdominal Pain with Emesis Inpatient Physical Therapy Treatment Note [facility] Date: 06/02/2021 PRECAUTIONS: Fall, activity as tolerated SUBJECTIVE: Leticia states that she has a screaming headache but is feeling a little better. She states that she wants to conserve her energy to go home later today. OBJECTIVE: PAIN: No c/o pain BED MOBILITY/TRANSFERS Supine-sit: I Sit-supine: I Sit-stand: I Stand-sit: I GAIT Assistive Device: FWW Weight bearing: Full Assist: S Distance: 20' + 10' Deviation: Slow pace, short step height/length TOILETING: Patient toileted with assist. ASSESSMENT: Patient tolerated session with complaint of increased fatigue. She demonstrates independence with transfers and bed mobility at this time. PLAN: Patient to discharge to home later today, per provider. Resume PT services. TREATMENT CODE/TIME: Session 1: 26 minutes; [id number] x2 ([id number])
--- NOTE | 2021-06-02 17:38 | CMDISCH_ITS ---
- If Service Date Differs Date of service: 06/02/21 Time of Service: 17:38 LACE Index Scoring Tool - Questions: Length of Stay (in days): 4 - 6 Acuity (Admit via E.D.?): Yes Comorbidities: Mild Liver/Renal Disease, Any Tumor E.D. Visits: 20 - Answers: Total Score: 16 Risk of Readmission: High Risk Care Management Discharge Reason for Hospitalization: Abdominal Pain with Emesis. Discharge Plan: Leticia returned home today with a resumption of [facility] RN. CM coordinated [facility] transportation home via private vehicle. CM attempted to obtain coverage for a new prescription, Dificid, which was denied. CM called Leticia at home to let her know of the denial, and reported that [facility] pharmacy will dispense the remainder of her prescription (4 days) and her caregiver can pick it up. CM called Armida ([phone]), her caregiver, and provided this information as well. She will follow up with her PCP and discharge plan of care. She is happy to be going home. Patient/Family Education Needs: Review discharge instructions regarding activity levels, sobriety, and medications, discussion of self care needs including ask me three. Services Needed at Discharge: Home Health Care Services (resume HH RN), Transpo rtation ([facility] private vehicle)
--- NOTE | 2021-06-05 08:58 | INDS_ITS ---
Date of service: 06/05/21 PT Notes Visit Reasons: Abdominal Pain with Emesis Inpatient Physical Therapy Discharge Summary Date: 06/05/21 Dates of Service: 05/30/2021 through 06/02/2021 This is a clinical summary of care provided for the duration of dates listed above. No charge was made in the completion of this documentation. Referring Doctor: Laly Dumont MD PT Orders: PT CONSULT: Evaluate and Treat Precautions: Standard Patient Profile/Admitting Diagnosis: Orders received for this 76-year-old female. Patient states that she was having abdominal pain and uncontrollable vomiting. She was taken to the hospital and according to diagnosis is on alcoh ol withdrawal. She has been on Ativan which is made her a little more drowsy as of late. Orders are received for evaluation and treatment of functional level PMHX: Medical History Acute alcoholism Acute UTI Adjustment disorder with depressed mood AMBER (acute kidney injury) Alcohol abuse Alcohol intoxication Alcohol intoxication Alcoholic gastritis without bleeding Alcoholic ketosis Allergic rhinitis Anemia Back pain, chronic Blunt head trauma Blunt trauma of multiple sites of trunk Calcific tendinitis of left shoulder CAP (community acquired pneumonia) Cataract (11/07/15) Cervical radicular pain neck pain and DJD [facility] Cervical strain 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) pls refrain from alcohol Chronic alcoholism she will not stop drinking unless she checks with me, so that we can help her avert withdrawal I do not think she is capable on her own--she would need placement to achieve required goal of 3 months of sobriety Chronic diarrhea Closed displaced fracture of proximal phalanx of right index finger with routine healing (06/03/17) Closed right humeral fracture Contusion of left little finger Corneal ulcer, right (~08/23/18) 08/23/18; [facility] Dehydration Depression Diarrhea Difficult intravenous access Multiple IV attempts, usually requires ultrasound placement. Discharge planning issues DVT prophylaxis Dystrophic nail Elev transaminase/LDH due to alcohol Epigastric abdominal pain Facial fracture due to fall Facial laceration Fall as cause of accidental injury at home as place of occurrence Fall at home Fracture of humerus, left, closed Genital herpes simplex recurrent gential; suppressive Valtrex GERD (gastroesophageal reflux disease) GI bleed (12/20/16) Head contusion Headache History of alcohol abuse Humerus fracture (09/12/19) Right Hyperlipidemia Hypertension Hypokalemia Hypokalemia Hypokalemia Hypomagnesemia Incidental lung nodule, greater than or equal to 8mm 1cm, spiculated, stable for many years, recommend f/u in 6 mo Intractable vomiting Leukopenia Macrocytosis (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 Multiple contusions Multiple fractures of ribs Multiple rib fractures 03/11/19 [facility] Nausea and vomiting in adult Non-cardiac chest pain (09/21/16) [facility] [place]/21/16 NEGATIVE MP Osteoarthritis Osteopenia Palliative care patient (03/21/17) Pancreatitis, alcoholic, acute Peripheral edema Photophobia of right eye Pleural effusion on left 03/11/19 [facility] Pneumonia Presacral mass (~09/15/18) 09/15/18 [facility] Rash Rib pain on right side Right rib fracture Sacral mass Sciatica right, epidural injuections PainCare Suicidal ideation Tendinitis of left rotator cuff Tubular adenoma of colon (01/28/17) Urinary incontinence 01/24/13 urethral suspension and sling at [facility] [place] (bladder suspension 1991) UTI (urinary tract infection) UTI (urinary tract infection) 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 Bladder repair. Ligation of fallopian tube Repair bladder injury, simple Social History/Home Situation: Patient lives at home with 4 steps in which to enter the home and utilizes a 2 wheel walker at baseline Equipment Owned/DME: 2 wheel walker Subjective: NT. See most recent TUMBLER DYEING MACHINE OPERATOR notes. Objective: NT. See most recent TUMBLER DYEING MACHINE OPERATOR notes. Mental Status: NT. See most recent TUMBLER DYEING MACHINE OPERATOR notes. Pain: NT. See most recent TUMBLER DYEING MACHINE OPERATOR notes. ROM: Right Upper Extremity: Within functional limits Left Upper Extremity: Within functional limits Right Lower Extremity: Within functional limits Left Lower Extremity: Within functional limits Strength: Right Upper Extremity: Globally 4+ out of 5 Left Upper Extremity: Globally 4+ out of 5 Right Lower Extremity: Globally 4+ out of 5 Left Lower Extremity: Globally 4+ out of 5 Bed Mobility/Transfers: Supine-sit: Independent Sit-stand: Independent independent Stand-sit: Not observed performed with nursing Bed-commode: Independent Gait: 20 feet +10 feet using front-wheeled walker. Huyen decreased. Step length and height decreased. Balance: Static Sitting: Good Dynamic Sitting: Fair Static Standing: Fair Dynamic Standing: Fair ASSESSMENT: Significant functional mobility improvement during this episode of care. Patient will benefit from home health PT services in order to progress mobility level using least restrictive assistive ambulatory device, assess home safety, identify additional equipment needs, and establish a functional maintenance program that will increase ability of patient to remain at home. Goals: Goals X1 week 1. Supine-Sit independent MET 2. Sit-Supine independent MET 3. Sit-Stand independent MET 4. Stand-Sit independent MET 5. Bed-Chair independent MET 6. Gait independent with walker 2 wheel up to 100 feet NOT MET 7: Stairs patient able to negotiate 4 steps independently NOT MET 8: Independent in Home program NOT MET DISCHARGE RECOMMENDATIONS: Patient will benefit from home health PT services in order to progress mobility level using least restrictive assistive ambulatory device, assess home safety, identify additional equipment needs, and establish a functional maintenance program that will increase ability of patient to remain at home. TREATMENT CODE/TIME: NC. Thank you for the opportunity to participate in the care of this patient. Tawana Cruz PT, DPT, CLT [facility] [place], [place]
== END 2021-06-02 14:46 | disposition home or self-care (01) | DRG 372 ==
LOC: ER 14:01 → MS 14:47
PROVIDERS: Internal Medicine; Nurse Practitioner; Admitting Provider Family Medicine; Emergency Provider Physician Assistant; PCP Family Medicine; Visit Provider Family Medicine
DX: A04.71 Enterocolitis due to Clostridium difficile, recurrent (principal); N17.9 Acute kidney failure, unspecified; E51.2 Wernicke's encephalopathy; K29.20 Alcoholic gastritis without bleeding; R74.01 Elevation of levels of liver transaminase levels; I10 Essential (primary) hypertension; E78.5 Hyperlipidemia, unspecified; F43.10 Post-traumatic stress disorder, unspecified; F32.9 Major depressive disorder, single episode, unspecified; E83.42 Hypomagnesemia; Z87.440 Personal history of urinary (tract) infections; J30.9 Allergic rhinitis, unspecified; D64.9 Anemia, unspecified; M47.22 Other spondylosis with radiculopathy, cervical region; F10.20 Alcohol dependence, uncomplicated; K52.9 Noninfective gastroenteritis and colitis, unspecified; K21.9 Gastro-esophageal reflux disease without esophagitis; E87.6 Hypokalemia; D75.89 Other specified diseases of blood and blood-forming organs; R60.0 Localized edema; M54.31 Sciatica, right side; Z20.822 Contact with and (suspected) exposure to COVID-19; E86.0 Dehydration; Z66 Do not resuscitate; K70.9 Alcoholic liver disease, unspecified
CPT/HCPCS: 36415; 80048; 80053; 80076; 82805; 83690; 85027; 87493; 87635; 90662; 93005; 96361; 96365; 96375; 96376; 97110; 97162; 97530; 99291; 74177; 80320; 81003; 81015; 83735; 84484; 85014; 85018; 85025; 87086; 93010; 99222; 99232; 99233; 99238; J2060; J2405; J2765; J3475; J3480; J3490

== ENCOUNTER 2021-07-07 09:05 | Inpatient (IN) | payer MEDICARE, SELFPAY ==
[2021-07-07] VITALS (48 sets, daily range): BP systolic 97–194; BP diastolic 67–116; PULSE 0–107; RESP 0–20; TEMP 36–36.8; O2SAT 89–99
--- NOTE | 2021-07-07 09:49 | ED.GENADUL_ITS ---
Discharge Plan Disposition Patient Disposition: [facility] INPATIENT Condition: Serious Discharge Details Chief Complaint: ETOHWithdr Clinical Impression: Depression with suicidal ideation, Alcohol intoxication Primary Care Provider: Lavelle Galindo ED Provider: Gwyn Sandoval Home Meds and New Rx's Prescriptions: No Action Xiidra 5 % dropperette 1 drp ophthalmic (eye) BID RF: 0 fluoxetine 10 mg tablet 10 mg PO DAILY Qty: 30 RF: 3 ondansetron 4 mg tablet,disintegrating 4 mg PO Q8H PRN (Reason: nausea and vomiting) Qty: 20 RF: 0 Ensure Active High Protein Liquid 414 ml PO DAILY Qty: 50983 RF: 11 multivitamin [Multiple Vitamins] Tablet 1 tab PO DAILY Qty: 90 RF: 3 thiamine HCl (vitamin B1) 100 mg tablet 100 mg PO DAILY Qty: 90 RF: 3 folic acid 1 mg tablet 1 mg PO DAILY Qty: 90 RF: 3 sucralfate 1 gram tablet 1 g PO BID Qty: 60 RF: 11 Refresh Plus 0.5 % Dropperette 1 drp OU Q4H WHILE AWAKE Qty: 30 RF: 0 Medical Decision Making 76-year-old female presents via EMS for evaluation of alcohol intoxication, noncompliant, with depression and SI, attempting to get her gun back in her house. Clinically she appears nontoxic, states I am drunk, give me a blanket and some IV fluid. She is not very engaging in her HPI or examination. Clinically she does not appear to be in alcohol withdrawal. Given her depression and SI, will request a mental health exam when medically clear, initiate a safety plan and a CPSO. Patient reports chronic cough, but clinically is afebrile, O2 sats in the low 90s on room air, will obtain a Covid test. We will also obtain routine screening laboratory values in order to medically clear the patient for mental health evaluation. Given her dry mucous membranes will give her 1 L of IV fluid and have also ordered a banana bag to be given when ready. Patient is not very engaging in a CIWA score, clinically she scores low. Is awake, alert, oriented to self and location, unsure of the exact date. She has no acute medical concerns at this time. Does not require any emergent alcohol withdrawal medications. Laboratory values reveal a white blood cell count of 2.34 hemoglobin 11.4 hematocrit 35.9 platelet count 127. Electrolytes are unremarkable, anion gap of 16.3, creatinine 0.8 with a GFR greater than 60. Glucose 77, calcium 9.2, phosphorus 3.7. Magnesium 1.6. LFTs slightly elevated although this appears to be her baseline, abdomen is soft, nontender. TSH 0.99. Urinalysis positive nitrate, 3-5 red and 5-10 white cells. Rare epithelials. Negative for leuk esterase. Patient denies any dysuria, will await culture. Alcohol level 297.3 Patient is resting comfortably, awakes easily to verbal stimuli. Now receiving banana bag. She remains hemodynamically stable. Repeat Ciwa remains low at 8. Not requiring any emergent alcohol withdrawal medications. Covid negative Patient will likely not be clinically sober for at least 10-12 hours. She will require a mental health evaluation given her depression and SI. We will discussed the case with our hospitalist team for potential admission while she travis up, can be monitored for withdrawal, and then subsequently can have a mental health evaluation. Case discussed with Dr. Dumont, is comfortable [facility] and not [facility] as the patient does not typically have severe withdrawal symptoms. She will write admission orders. Medical Records Medical records reviewed: Yes I reviewed the patient's medical records. Lab Data Lab results reviewed: Yes I reviewed the patient's lab results. Labs: 07/07/21 10:20 Urine - Reflex from Ua Urine Culture - Pending Laboratory Tests Range/Units 07/07/21 07/07/21 07/07/21 09:55 10:05 10:05 WBC (4.4-10.8) 10^3/uL RBC (3.93-5.22) 10^6/uL Hgb (11.2-15.7) g/dL Hct (36.0-46.0) % MCV (80-95) fL MCH (27.0-33.0) pg MCHC (32.0-36.0) % RDW (11.7-14.6) % Plt Count (130-400) 10^3/uL MPV (8.0-11.0) fL Immature Gran % Neutrophils % Lymphocytes % Monocytes % Eosinophils % Basophils % Nucleated RBC % % Absolute Neutrophils (1.2-6.7) 10^3/uL Absolute Lymphocytes (1.2-3.4) 10^3/uL Absolute Monocytes (0.1-0.8) 10^3/uL Absolute Eosinophils (0.0-0.7) 10^3/uL Absolute Basophils (0.0-0.2) 10^3/uL Sodium (136-145) mmol/L 142 Potassium (3.5-5.1) mmol/L 3.5 Chloride (98-107) mmol/L 101 Carbon Dioxide (21.0-32.0) mmol/L 24.7 Anion Gap (3-11) mmol/L 16.3 H BUN (7-18) mg/dL 15 Creatinine (0.55-1.02) mg/dL 0.8 Estimated GFR/1.73 m2 (mL/min/1.73m2) >= 60.00 Glucose (74-106) mg/dL 77 Calcium (8.5-10.1) mg/dL 9.2 Phosphorus (2.6-4.7) mg/dL Magnesium (1.8-2.4) mg/dL 1.6 L Total Bilirubin (0.2-1.0) mg/dL 2.0 H AST (15-37) U/L 165 H ALT (14-59) U/L 62 H Alkaline Phosphatase (46-116) U/L 142 H Total Protein (6.4-8.2) g/dL 7.1 Albumin (3.4-5.0) g/dL 3.5 Lipase (73-393) U/L 81 TSH (0.36-3.74) uIU/mL 0.99 Urine Color Urine Clarity Urine pH Ur Specific [place] Urine Protein Urine Ketones Urine Blood Urine Nitrite Urine Bilirubin Urine Urobilinogen Ur Leukocyte Esterase Urine RBC (0-2) HPF Urine WBC (0-5) HPF Ur Epithelial Cells (Negative) HPF Urine Crystals (Negative) HPF Urine Bacteria (Negative) HPF Urine Casts (Negative) LPF Urine Mucus (Negative) Ur Culture Indicated? Urine Glucose Salicylates (<2.8) mg/dL < 2.8 Urine Opiates Screen (Negative) Urine Methadone Screen (Negative) Acetaminophen (10-30) ug/mL < 2 Ur Barbiturates Screen (Negative) Ur Tricyclics Screen (Negative) Ur Amphetamines Screen (Negative) U Benzodiazepines Scrn (Negative) Urine Cocaine Screen (Negative) Ur THC Screen (Negative) Ethyl Alcohol (<10) mg/dL 297.3 H COVID-19 Source Nasal/Nares SARS-CoV-2 (PCR) (Negative) Negative Range/Units 07/07/21 07/07/21 07/07/21 10:05 10:05 10:08 WBC (4.4-10.8) 10^3/uL 2.84 L RBC (3.93-5.22) 10^6/uL 3.51 L Hgb (11.2-15.7) g/dL 11.4 Hct (36.0-46.0) % 35.9 L MCV (80-95) fL 102.3 H MCH (27.0-33.0) pg 32.5 MCHC (32.0-36.0) % 31.8 L RDW (11.7-14.6) % 15.6 H Plt Count (130-400) 10^3/uL 127 L MPV (8.0-11.0) fL 8.9 Immature Gran % 0.4 Neutrophils % 54.2 Lymphocytes % 36.6 Monocytes % 8.1 Eosinophils % 0.0 Basophils % 0.7 Nucleated RBC % % 0 Absolute Neutrophils (1.2-6.7) 10^3/uL 1.54 Absolute Lymphocytes (1.2-3.4) 10^3/uL 1.04 L Absolute Monocytes (0.1-0.8) 10^3/uL 0.23 Absolute Eosinophils (0.0-0.7) 10^3/uL 0.00 Absolute Basophils (0.0-0.2) 10^3/uL 0.02 Sodium (136-145) mmol/L Potassium (3.5-5.1) mmol/L Chloride (98-107) mmol/L Carbon Dioxide (21.0-32.0) mmol/L Anion Gap (3-11) mmol/L BUN (7-18) mg/dL Creatinine (0.55-1.02) mg/dL Estimated GFR/1.73 m2 (mL/min/1.73m2) Glucose (74-106) mg/dL Calcium (8.5-10.1) mg/dL Phosphorus (2.6-4.7) mg/dL 3.6 Magnesium (1.8-2.4) mg/dL Total Bilirubin (0.2-1.0) mg/dL AST (15-37) U/L ALT (14-59) U/L Alkaline Phosphatase (46-116) U/L Total Protein (6.4-8.2) g/dL Albumin (3.4-5.0) g/dL Lipase (73-393) U/L TSH (0.36-3.74) uIU/mL Urine Color Cancelled Urine Clarity Cancelled Urine pH Cancelled Ur Specific [place] Cancelled Urine Protein Cancelled Urine Ketones Cancelled Urine Blood Cancelled Urine Nitrite Cancelled Urine Bilirubin Cancelled Urine Urobilinogen Cancelled Ur Leukocyte Esterase Cancelled Urine RBC (0-2) HPF Urine WBC (0-5) HPF Ur Epithelial Cells (Negative) HPF Urine Crystals (Negative) HPF Urine Bacteria (Negative) HPF Urine Casts (Negative) LPF Urine Mucus (Negative) Ur Culture Indicated? Urine Glucose Cancelled Salicylates (<2.8) mg/dL Urine Opiates Screen (Negative) Urine Methadone Screen (Negative) Acetaminophen (10-30) ug/mL Ur Barbiturates Screen (Negative) Ur Tricyclics Screen (Negative) Ur Amphetamines Screen (Negative) U Benzodiazepines Scrn (Negative) Urine Cocaine Screen (Negative) Ur THC Screen (Negative) Ethyl Alcohol (<10) mg/dL COVID-19 Source SARS-CoV-2 (PCR) (Negative) Range/Units 07/07/21 07/07/21 10:20 10:20 WBC (4.4-10.8) 10^3/uL RBC (3.93-5.22) 10^6/uL Hgb (11.2-15.7) g/dL Hct (36.0-46.0) % MCV (80-95) fL MCH (27.0-33.0) pg MCHC (32.0-36.0) % RDW (11.7-14.6) % Plt Count (130-400) 10^3/uL MPV (8.0-11.0) fL Immature Gran % Neutrophils % Lymphocytes % Monocytes % Eosinophils % Basophils % Nucleated RBC % % Absolute Neutrophils (1.2-6.7) 10^3/uL Absolute Lymphocytes (1.2-3.4) 10^3/uL Absolute Monocytes (0.1-0.8) 10^3/uL Absolute Eosinophils (0.0-0.7) 10^3/uL Absolute Basophils (0.0-0.2) 10^3/uL Sodium (136-145) mmol/L Potassium (3.5-5.1) mmol/L Chloride (98-107) mmol/L Carbon Dioxide (21.0-32.0) mmol/L Anion Gap (3-11) mmol/L BUN (7-18) mg/dL Creatinine (0.55-1.02) mg/dL Estimated GFR/1.73 m2 (mL/min/1.73m2) Glucose (74-106) mg/dL Calcium (8.5-10.1) mg/dL Phosphorus (2.6-4.7) mg/dL Magnesium (1.8-2.4) mg/dL Total Bilirubin (0.2-1.0) mg/dL AST (15-37) U/L ALT (14-59) U/L Alkaline Phosphatase (46-116) U/L Total Protein (6.4-8.2) g/dL Albumin (3.4-5.0) g/dL Lipase (73-393) U/L TSH (0.36-3.74) uIU/mL Urine Color Yellow Urine Clarity Cloudy Urine pH 7.5 Ur Specific [place] 1.020 Urine Protein 100 H Urine Ketones Trace Urine Blood Trace-intact H Urine Nitrite Positive H Urine Bilirubin Small H Urine Urobilinogen 2.0 H Ur Leukocyte Esterase Small Urine RBC (0-2) HPF 3-5 H Urine WBC (0-5) HPF 5-10 Ur Epithelial Cells (Negative) HPF Rare Urine Crystals (Negative) HPF Urine Bacteria (Negative) HPF Many Urine Casts (Negative) LPF Negative Urine Mucus (Negative) Trace Ur Culture Indicated? Yes Urine Glucose Negative Salicylates (<2.8) mg/dL Urine Opiates Screen (Negative) Negative Urine Methadone Screen (Negative) Negative Acetaminophen (10-30) ug/mL Ur Barbiturates Screen (Negative) Negative Ur Tricyclics Screen (Negative) Negative Ur Amphetamines Screen (Negative) Negative U Benzodiazepines Scrn (Negative) Negative Urine Cocaine Screen (Negative) Negative Ur THC Screen (Negative) Negative Ethyl Alcohol (<10) mg/dL COVID-19 Source SARS-CoV-2 (PCR) (Negative) HPI General Mode of arrival: EMS . Date/Time Provider Initiated Documentation: 07/07/21 09:22 . Limitations to Documentation: altered mental status . Information obtained by: patient and EMS . HPI Narrative: This is a 76-year-old female, presenting to the ER today via EMS for evaluation after being sent here by her caregiver, apparently she has been drinking alcohol, whiskey, heavily for 2 weeks, noncompliant with her medications over the past couple of weeks, chronic cough primarily dry associate with some postnasal drip, not eating or having other fluid intake other than alcohol, now requesting that her sister brings back her gun to her house and stating I do not want to live anymore. Patient has a past nuchal history that includes alcohol abuse, adjustment disorder with depression, AMBER, anemia, chronic back pain, GERD, hypertension, pancreatitis, Warnicke's encephalitis, lung nodule which has not been thoroughly worked up. Patient states just give me a blanket and IV fluid. Patient does not very engaging in her HPI or examination. Patient denies recent illness. Patient reports that she does have multiple falls although nothing in the last couple of days and no distinct injury from any of the falls. She currently denies headache, chest pain, shortness of breath, abdominal pain, nausea change in bowel or bladder function. She denies any focal weakness. Related Data Home Medications Medication Instructions Recorded Confirmed Refresh Plus 1 drp OU Q4H WHILE AWAKE #30 each 06/20/19 07/07/21 food supplemt, lactose-reduced 414 ml PO DAILY #29956 ml 08/24/19 07/07/21 lifitegrast 5 % eye drops in a 1 drp OPHTHALMIC (EYE) BID 08/05/20 07/07/21 dropperette folic acid 1 mg tablet 1 mg PO DAILY #90 tab 09/05/20 07/07/21 multivitamin 1 tab PO DAILY #90 tab 09/05/20 07/07/21 thiamine HCl (vitamin B1) 100 mg 100 mg PO DAILY #90 tab 09/05/20 07/07/21 tablet ondansetron 4 mg disintegrating 4 mg PO Q8H PRN #20 tab 04/28/21 07/07/21 tablet fluoxetine 10 mg tablet 10 mg PO DAILY #30 tab 06/10/21 07/07/21 sucralfate 1 gram tablet 1 g PO BID #60 tab 06/11/21 07/07/21 Previous Rx's Medication Instructions Recorded Refresh Plus 1 drp OU Q4H WHILE AWAKE #30 each 06/20/19 food supplemt, lactose-reduced 414 ml PO DAILY #85421 ml 08/24/19 folic acid 1 mg tablet 1 mg PO DAILY #90 tab 09/05/20 multivitamin 1 tab PO DAILY #90 tab 09/05/20 thiamine HCl (vitamin B1) 100 mg 100 mg PO DAILY #90 tab 09/05/20 tablet ondansetron 4 mg disintegrating 4 mg PO Q8H PRN #20 tab 04/28/21 tablet fluoxetine 10 mg tablet 10 mg PO DAILY #30 tab 06/10/21 sucralfate 1 gram tablet 1 g PO BID #60 tab 06/11/21 Allergies Allergy/AdvReac Type Severity Reaction Status Date / Time Penicillins Allergy Mild Rash Verified 07/07/21 09:24 ramipril Allergy Unknown ITCHING Verified 07/07/21 09:24 meperidine [From Demerol] AdvReac Severe Nausea Verified 07/07/21 09:24 bupropion AdvReac Mild GI upset Verified 07/07/21 09:24 AMBER Inhibitors AdvReac Unknown COUGH Verified 07/07/21 09:24 alendronate sodium AdvReac Unknown GI Distress Verified 07/07/21 09:24 clarithromycin AdvReac Unknown intolerant Verified 07/07/21 09:24 paroxetine AdvReac Unknown Diarrhea Verified 07/07/21 09:24 General Stated Complaint: ETOHWithdr JORDAN: 3 Review of Systems Narrative: Limited, difficult to obtain Constitutional Constitutional: Denies fatigue, Denies fever(s) and Denies headache(s) ENT Ears, Nose, Mouth, and Throat: Denies headache(s) and Denies neck pain Cardiovascular Cardiovascular: Denies chest pain and Denies dyspnea Respiratory Respiratory: Reports cough and Denies dyspnea Gastrointestinal Gastrointestinal: Denies abdominal pain Musculoskeletal Musculoskeletal: Reports back pain (chronic) and Denies neck pain Integumentary/Breasts Skin/Breast: Denies rash Neurologic Neurologic: Denies headache(s) Psychiatric Psychiatric: Reports depression and Reports suicidal ideation Endocrine Endocrine: Denies fatigue Hematologic/Lymphatic Hematologic/Lymphatic: Denies easy bleeding and Denies easy bruising [facility] Medical History Acute alcoholism Acute UTI Adjustment disorder with depressed mood AMBER (acute kidney injury) Alcohol abuse Alcohol intoxication Alcohol intoxication Alcoholic gastritis without bleeding Alcoholic ketosis Allergic rhinitis Anemia Back pain, chronic Blunt head trauma Blunt trauma of multiple sites of trunk Calcific tendinitis of left shoulder CAP (community acquired pneumonia) Cataract (11/07/15) Cervical radicular pain neck pain and DJD [facility] Cervical strain 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) pls refrain from alcohol Chronic alcoholism she will not stop drinking unless she checks with me, so that we can help her avert withdrawal I do not think she is capable on her own--she would need placement to achieve required goal of 3 months of sobriety Chronic diarrhea Closed displaced fracture of proximal phalanx of right index finger with routine healing (06/03/17) Closed right humeral fracture Contusion of left little finger Corneal ulcer, right (~08/23/18) 08/23/18; [facility]- Dehydration Depression Diarrhea Difficult intravenous access Multiple IV attempts, usually requires ultrasound placement. Discharge planning issues DVT prophylaxis Dystrophic nail Elev transaminase/LDH due to alcohol Epigastric abdominal pain Facial fracture due to fall Facial laceration Fall as cause of accidental injury at home as place of occurrence Fall at home Fracture of humerus, left, closed Genital herpes simplex recurrent gential; suppressive Valtrex GERD (gastroesophageal reflux disease) GI bleed (12/20/16) Head contusion Headache History of alcohol abuse Humerus fracture (09/12/19) Right Hyperlipidemia Hypertension Hypokalemia Hypokalemia Hypokalemia Hypomagnesemia Incidental lung nodule, greater than or equal to 8mm 1cm, spiculated, stable for many years, recommend f/u in 6 mo Intractable vomiting Leukopenia Macrocytosis (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 Multiple contusions Multiple fractures of ribs Multiple rib fractures 03/11/19 [facility] Nausea and vomiting in adult Non-cardiac chest pain (09/21/16) [facility] [place]GATIVE MP Osteoarthritis Osteopenia Palliative care patient (03/21/17) Pancreatitis, alcoholic, acute Peripheral edema Photophobia of right eye Pleural effusion on left 03/11/19 [facility] Pneumonia Presacral mass (~09/15/18) 09/15/18 [facility] Rash Rib pain on right side Right rib fracture Sacral mass Sciatica right, epidural injuections [facility] Suicidal ideation Tendinitis of left rotator cuff Tubular adenoma of colon (01/28/17) Urinary incontinence 01/24/13 urethral suspension and sling [place] [facility] [place]bladder suspension 1991) UTI (urinary tract infection) UTI (urinary tract infection) 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 Bladder repair. Ligation of fallopian tube Repair bladder injury, simple Family History Mother No problems noted. Father , DROWNED at age 50. No problems noted. Sister Personal history of malignant neoplasm MELANOMA Sister No problems noted. Grandfather Personal history of malignant neoplasm STOMACH Grandfather Personal history of malignant neoplasm PROSTATE Grandmother Heart disease [place] Acute ill-defined cerebrovascular disease Grandmother Personal history of malignant neoplasm UTERINE Aunt , [place] Heart disease [place] Aunt , [place] Heart disease Brother No problems noted. Social History Smoking/Tobacco Use Status: Never Smoking risk assessment performed?: Yes Alcohol Intake: current Alcohol Intake frequency: 3 or more drinks per day Alcohol type: hard liquor Drug use: Never Substance use type: does not use Current gender identity: female Do you feel safe at home: Yes Do you feel safe in your relationship?: Yes Additional Social history: Pt has been binge drinking since 4am Exam Const General: comfortable, no acute distress, disheveled and ill appearing chronically Orientation: alert, awake and oriented x3 HENMT Head: normal to inspection, normocephalic and atraumatic Face and sinus: normal facial exam Mouth: moist mucous membranes abnormal (dry) Eyes General: appearance normal, both eyes and all related structures Alignment and Position: alignment normal Periorbital: periorbital findings normal Eyelids: eyelids normal Conjunctivae: conjunctivae normal Sclera: sclerae normal Cornea: corneas normal Pupils: PERRL EOM: EOM intact bilaterally Direct ophthalmoscopy: normal light reflex Neck Neck: normal visual inspection, full ROM, trachea midline and supple Resp Effort & Inspection: normal respiratory effort and able to speak in complete sentences Auscultation: diminished lung sounds bilaterally in the lower lung gatica Cardio Rate: regular rate Rhythm: regular rhythm GI Palpation: soft, not firm, no guarding, no pulsatile masses and nontender Back/Spine/Pelvis Back: No back tenderness Skin General skin exam: no rashes or lesions noted Neuro General: patient alert, patient awake, moves all extremities and no focal motor deficits Cognition: normal cognition Speech: speech normal Motor: muscle tone normal throughout and strength 5/5 throughout Sensory Exam: no sensory deficits noted Extrem General: normal to inspection, full ROM and capillary refill normal Psych Appearance: grossly normal Mental Status: mental status grossly normal Speech and Movement: speech and movement normal Mood: dysthymic mood Affect: sad Attitude: belligerent Thought Process: normal Thought Content: suicidality Insight: fair Judgment: fair Course Vital Signs Vital signs: Vital Signs Temperature 36.7 C 07/07/21 09:09 Pulse 87 07/07/21 09:09 Respiratory Rate 16 07/07/21 09:09 Pulse Oximetry 97 07/07/21 09:09 Temperature 36.7 C 07/07/21 09:09 Temperature Source Skin 07/07/21 09:09 Pulse 87 07/07/21 09:09 Respiratory Rate 16 07/07/21 09:09 Respiratory Effort Non-Labored 07/07/21 09:09 Pulse Oximetry 97 07/07/21 09:09 Oxygen Delivery Method Room Air 07/07/21 09:09 Oxygen Flow Rate 0 07/07/21 09:09 Pain Level 7 07/07/21 09:09 Comment 07/07/21 09:09
[2021-07-07 09:58] LABS: Source Nasal/Nares
[2021-07-07] MEDS: Normal Saline 1,000 ML 1000 ML IV (10:10)
[2021-07-07 10:14] LABS: Abs Immature Grans 0.01 10^3/uL (0.0-0.06); Absolute Basophil Count 0.02 10^3/uL (0.0-0.2); Absolute Lymphocyte Count 1.04 10^3/uL (1.2-3.4); Absolute Monocyte Count 0.23 10^3/uL (0.1-0.8); Absolute Neutrophil Count 1.54 10^3/uL (1.2-6.7); Basophils % 0.7; HCT 35.9 % (36.0-46.0); HGB 11.4 g/dL (11.2-15.7); Immature Grans % 0.4; Lymphocytes % 36.6; MCH 32.5 pg (27.0-33.0); MCHC 31.8 % (32.0-36.0); MCV 102.3 fL (80-95); MPV 8.9 fL (8.0-11.0); Monocytes % 8.1; Neutrophils % 54.2; Nucleated RBC 0 %; Platelet Count 127 10^3/uL (130-400); RBC 3.51 10^6/uL (3.93-5.22); RDW 15.6 % (11.7-14.6); RDW-SD 59.3 fL; WBC 2.84 10^3/uL (4.4-10.8)
[2021-07-07 10:38] LABS: Bilirubin Small (Negative); Blood Trace-intact (Negative); Clarity Cloudy (Clear); Glucose Negative (Negative); Ketones Trace mg/dL (Negative); Leukocyte Esterase Small (Negative); Nitrite Positive (Negative); pH 7.5 (5-8)
[2021-07-07 10:39] LABS: BUN 15 mg/dL (7-18); CREATININE 0.8 mg/dL (0.55-1.02); Calcium 9.2 mg/dL (8.5-10.1); Glucose 77 mg/dL (74-106); PHOSPHORUS 3.6 mg/dL (2.6-4.7)
[2021-07-07 10:40] LABS: ALT 62 U/L (14-59); AST 165 U/L (15-37); Albumin 3.5 g/dL (3.4-5.0); Alkaline Phosphatase 142 U/L (46-116); Anion Gap 16.3 mmol/L (3-11); CO2 24.7 mmol/L (21.0-32.0); Chloride 101 mmol/L (98-107); ETHANOL BLOOD 297.3 mg/dL (<10); Lipase 81 U/L (73-393); Magnesium 1.6 mg/dL (1.8-2.4); Potassium 3.5 mmol/L (3.5-5.1); Sodium 142 mmol/L (136-145); TSH (W/Ref FT4) 0.99 uIU/mL (0.36-3.74); Total Protein 7.1 g/dL (6.4-8.2)
[2021-07-07 10:42] LABS: Epithelial Cells Rare HPF (Negative)
[2021-07-07 10:43] LABS: Bacteria Many HPF (Negative)
[2021-07-07 10:44] LABS: C & S Indicated? Yes; Casts Negative LPF (Negative); Mucus Trace (Negative)
[2021-07-07 10:46] LABS: *AMPHETAMINES SCREEN URINE Negative (Negative); *BARBITURATES SCREEN URINE Negative (Negative); *BENZODIAZEPINES SCREEN URINE Negative (Negative); Cannabinoids THC Negative (Negative); Cocaine Screen,Urine Negative (Negative); METHADONE URINE SCREEN Negative (Negative); OPIATES URINE SCREEN Negative (Negative); Tricyclic Antidepressants Negative (Negative)
[2021-07-07 10:47] LABS: Acetaminophen < 2 ug/mL (10-30); Salicylate < 2.8 mg/dL (<2.8)
[2021-07-07 10:54] LABS: COVID-19 PCR Negative (Negative)
[2021-07-07] MEDS: MAGNESIUM SULFATE 8.12 MEQ, MULTIVITAMIN 10 ML, THIAMINE 100 MG, FOLIC ACID 1 MG in Nor... 168.867 MG IV (11:34)
--- NOTE | 2021-07-07 12:49 | PDOC.CMSAFED ---
- If Service Date Differs Date of service: 07/07/21 Time of Service: 12:49 Care Management Safety Plan Status: Interim - Reason for Wait Reason for Wait: Medical Clearance Chief Complaint: Leticia is a 76 year old female who resides alone in [place]. She has a history of depression, suicidal ideation, and alcohol use. Leticia has a private caregiver who comes to her home several days a week for a few hours each day. She presents in the ED today with a blood alcohol level of 297.3 and a complaint of being in pain. When her alcohol level is at zero, Leticia will be evaluated by [facility]. CM will respond to ED to assess patient after patient has been medically cleared and assessed by screener. If screener deems patient meets criteria for psychiatric stabilization CM will facilitate interdepartmental huddle with [facility] screener for safety planning considerations and meet with patient to review [facility] policy and safety plan, establish individual wishes for treatment and maintain patient rights. In the interim; please note safety plan below to guide patient care while awaiting further assessment in the ED. SAFETY PLAN: 1. Will remain on suicide precautions and in paper clothes. 2. Will remain in room under direct supervision of one-on-one staff at all times provided by CPSO, [employer], [employer] account support manager. 3. May have paper cups, plates, finger foods as well as a cardboard spoon with which to eat meals. 4. Follow [facility] Management of the Admitted Behavioral Health Patient policy. 5. Personal care: Comfort bath system only at this time. 6. Bathroom privileges: with escort in ED; available in room without limitation on Med/Surg. 6. No personal belongings at this time. 7. No visitors at this time. 8. Phone contact limited to legal contact at this time. 9. Activities: Music tablet per RN discretion. Med/Surg: Television and remote available at RN discretion. 10. Due to VOLUNTARY status, if patient wishes to leave [facility], staff will contact [facility] Crisis Screener ([phone]) and On-Call Family Services Worker ([phone]) as soon as possible. In the event of elopement, notify [facility] Police ([phone]). If deemed appropriate for inpatient psychiatric care, safety plan will be established with patient, and care team, to adhere to patient goals, identify restrictions based on behavioral status, address nutrition, and determine allowed personal belongings, tools for hygiene and personal care. As well plan will determine level of activity including ambulation, level of supervision, visitors, and determine privileges based on level of acuity, behaviors and level of engagement by patient.
--- NOTE | 2021-07-07 14:54 | HPE_ITS ---
Date of service: 07/07/21 Time of Service: 14:55 Assessment and Plan Assessment and plan (1) Alcohol intoxication: Status: Acute Assessment and plan: MIGUELINA 290, no significant history of withdrawal. CIWA with ativan prn thiamine, folic acid safety precautions (2) Depression with suicidal ideation: Status: Acute Assessment and plan: will need to be medically cleared for mental health evaluation. safety precautions CPSO and safety plan (3) Iron deficiency anemia: Status: Chronic Assessment and plan: H&H is stable Qualifiers: Iron deficiency anemia type: inadequate dietary iron intake Qualified Code(s): D50.8 - Other iron deficiency anemias (4) Hypertension: Status: Chronic Assessment and plan: monitor, adjust meds as needed. Qualifiers: Hypertension type: essential hypertension Qualified Code(s): I10 - Essential (primary) hypertension (5) DVT prophylaxis: Status: Acute Assessment and plan: teds (6) Discharge planning issues: Status: Acute Assessment and plan: mental health screening when sober. case management following discussed with Dr Dumont History of Present Illness History of Present Illness Chief Complaint: alcohol intoxication, suicidal ideation Narrative: this is a 76 year old female, well know to [facility], history of ETOH, pancreatitis, depression who was sent in today for ongoing alcohol use and reports of suicidal statements. Her work up in the ED MIGUELINA of 290, otherwise unremarkable. she is being admitted to med/surg for medical clearance for mental health evaluation. Review of Systems All systems reviewed & are unremarkable except as noted in HPI and below and Unobtainable due to (patient is intoxicated, denies any recent illness) [facility] Medical History Acute alcoholism Acute UTI Adjustment disorder with depressed mood AMBER (acute kidney injury) Alcohol abuse Alcohol intoxication Alcohol intoxication Alcoholic gastritis without bleeding Alcoholic ketosis Allergic rhinitis Anemia Back pain, chronic Blunt head trauma Blunt trauma of multiple sites of trunk Calcific tendinitis of left shoulder CAP (community acquired pneumonia) Cataract (11/07/15) Cervical radicular pain neck pain and DJD [facility] Cervical strain 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) pls refrain from alcohol Chronic alcoholism she will not stop drinking unless she checks with me, so that we can help her avert withdrawal I do not think she is capable on her own--she would need placement to achieve required goal of 3 months of sobriety Chronic diarrhea Closed displaced fracture of proximal phalanx of right index finger with routine healing (06/03/17) Closed right humeral fracture Contusion of left little finger Corneal ulcer, right (~08/23/18) 08/23/18; [facility] Dehydration Depression Diarrhea Difficult intravenous access Multiple IV attempts, usually requires ultrasound placement. Discharge planning issues DVT prophylaxis Dystrophic nail Elev transaminase/LDH due to alcohol Epigastric abdominal pain Facial fracture due to fall Facial laceration Fall as cause of accidental injury at home as place of occurrence Fall at home Fracture of humerus, left, closed Genital herpes simplex recurrent gential; suppressive Valtrex GERD (gastroesophageal reflux disease) GI bleed (12/20/16) Head contusion Headache History of alcohol abuse Humerus fracture (09/12/19) Right Hyperlipidemia Hypertension Hypokalemia Hypokalemia Hypokalemia Hypomagnesemia Incidental lung nodule, greater than or equal to 8mm 1cm, spiculated, stable for many years, recommend f/u in 6 mo Intractable vomiting Leukopenia Macrocytosis (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 Multiple contusions Multiple fractures of ribs Multiple rib fractures 03/11/19 [facility] Nausea and vomiting in adult Non-cardiac chest pain (09/21/16) [facility] 09/21/16 NEGATIVE MP Osteoarthritis Osteopenia Palliative care patient (03/21/17) Pancreatitis, alcoholic, acute Peripheral edema Photophobia of right eye Pleural effusion on left 03/11/19 [facility] Pneumonia Presacral mass (~09/15/18) 09/15/18 [facility] Rash Rib pain on right side Right rib fracture Sacral mass Sciatica right, epidural injuections [facility] Suicidal ideation Tendinitis of left rotator cuff Tubular adenoma of colon (01/28/17) Urinary incontinence 01/24/13 urethral suspension and sling at [facility] (bladder suspension 1991) UTI (urinary tract infection) UTI (urinary tract infection) 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 Bladder repair. Ligation of fallopian tube Repair bladder injury, simple Family History Mother No problems noted. Father , DROWNED at age 50. No problems noted. Sister Personal history of malignant neoplasm MELANOMA Sister No problems noted. Grandfather Personal history of malignant neoplasm STOMACH Grandfather Personal history of malignant neoplasm PROSTATE Grandmother Heart disease [place] Acute ill-defined cerebrovascular disease Grandmother Personal history of malignant neoplasm UTERINE Aunt , [place] Heart disease [place] Aunt , [place] Heart disease Brother No problems noted. Social History Smoking/Tobacco Use Status: Never Smoking risk assessment performed?: Yes Alcohol Intake: current Alcohol Intake frequency: 3 or more drinks per day Alcohol type: hard liquor Drug use: Never Substance use type: does not use Current gender identity: female Do you feel safe at home: Yes Do you feel safe in your relationship?: Yes Additional Social history: Pt has been binge drinking since 4am Meds Allergies and Home Medications Allergies Allergy/AdvReac Type Severity Reaction Status Date / Time Penicillins Allergy Mild Rash Verified 07/07/21 09:24 ramipril Allergy Unknown ITCHING Verified 07/07/21 09:24 meperidine [From Demerol] AdvReac Severe Nausea Verified 07/07/21 09:24 bupropion AdvReac Mild GI upset Verified 07/07/21 09:24 AMBER Inhibitors AdvReac Unknown COUGH Verified 07/07/21 09:24 alendronate sodium AdvReac Unknown GI Distress Verified 07/07/21 09:24 clarithromycin AdvReac Unknown intolerant Verified 07/07/21 09:24 paroxetine AdvReac Unknown Diarrhea Verified 07/07/21 09:24 Home Medications Medication Instructions Recorded Confirmed Type Refresh Plus 1 drp OU Q4H WHILE AWAKE #30 each 06/20/19 07/07/21 Rx food supplemt, lactose-reduced 414 ml PO DAILY #34257 ml 08/24/19 07/07/21 Rx lifitegrast 5 % eye drops in a 1 drp OPHTHALMIC (EYE) BID 08/05/20 07/07/21 History dropperette folic acid 1 mg tablet 1 mg PO DAILY #90 tab 01/08/21 11/09/21 Rx multivitamin 1 tab PO DAILY #90 tab 09/05/20 07/07/21 Rx thiamine HCl (vitamin B1) 100 mg 100 mg PO DAILY #90 tab 09/05/20 07/07/21 Rx tablet ondansetron 4 mg disintegrating 4 mg PO Q8H PRN #20 tab 04/28/21 07/07/21 Rx tablet fluoxetine 10 mg tablet 10 mg PO DAILY #30 tab 06/10/21 07/07/21 Rx sucralfate 1 gram tablet 1 g PO BID #60 tab 06/11/21 07/07/21 Rx Exam Const General: comfortable, no acute distress, disheveled and ill appearing chronically Orientation: alert, awake and oriented x3 HENMT Head: normal to inspection, normocephalic and atraumatic Mouth: moist mucous membranes abnormal (dry) Eyes General: appearance normal, both eyes and all related structures Conjunctivae: conjunctivae normal Sclera: sclerae normal Cornea: corneas normal Neck Neck: normal visual inspection and full ROM Resp Effort & Inspection: normal respiratory effort and able to speak in complete sentences Auscultation: diminished lung sounds bilaterally in the lower lung gatica Cardio Rate: regular rate Rhythm: regular rhythm GI Palpation: soft and nontender Skin General skin exam: no rashes or lesions noted Neuro General: patient alert, patient awake, moves all extremities and no focal motor deficits Cognition: normal cognition Speech: speech normal Motor: muscle tone normal throughout and strength 5/5 throughout Extrem General: normal to inspection and full ROM Psych Mental Status: mental status grossly normal Speech and Movement: speech and movement normal Mood: dysthymic mood Affect: sad Attitude: belligerent Thought Process: normal Thought Content: suicidality Insight: fair Judgment: fair Results Labs Result diagrams: 07/07/21 10:05 07/07/21 10:05 Labs: Laboratory Results - last 24 hr 07/07/21 07/07/21 07/07/21 09:55 10:05 10:05 WBC RBC Hgb Hct MCV MCH MCHC RDW Plt Count MPV Immature Gran % Neutrophils % Lymphocytes % Monocytes % Eosinophils % Basophils % Nucleated RBC % Absolute Neutrophils Absolute Lymphocytes Absolute Monocytes Absolute Eosinophils Absolute Basophils Sodium 142 Potassium 3.5 Chloride 101 Carbon Dioxide 24.7 Anion Gap 16.3 H BUN 15 Creatinine 0.8 Estimated GFR/1.73 m2 >= 60.00 Glucose 77 Calcium 9.2 Phosphorus Magnesium 1.6 L Total Bilirubin 2.0 H AST 165 H ALT 62 H Alkaline Phosphatase 142 H Total Protein 7.1 Albumin 3.5 Lipase 81 TSH 0.99 Urine Color Urine Clarity Urine pH Ur Specific Morley Urine Protein Urine Ketones Urine Blood Urine Nitrite Urine Bilirubin Urine Urobilinogen Ur Leukocyte Esterase Urine RBC Urine WBC Ur Epithelial Cells Urine Crystals Urine Bacteria Urine Casts Urine Mucus Ur Culture Indicated? Urine Glucose Salicylates < 2.8 Urine Opiates Screen Urine Methadone Screen Acetaminophen < 2 Ur Barbiturates Screen Ur Tricyclics Screen Ur Amphetamines Screen U Benzodiazepines Scrn Urine Cocaine Screen Ur THC Screen Ethyl Alcohol 297.3 H COVID-19 Source Nasal/Nares SARS-CoV-2 (PCR) Negative 07/07/21 07/07/21 07/07/21 10:05 10:05 10:08 WBC 2.84 L RBC 3.51 L Hgb 11.4 Hct 35.9 L MCV 102.3 H MCH 32.5 MCHC 31.8 L RDW 15.6 H Plt Count 127 L MPV 8.9 Immature Gran % 0.4 Neutrophils % 54.2 Lymphocytes % 36.6 Monocytes % 8.1 Eosinophils % 0.0 Basophils % 0.7 Nucleated RBC % 0 Absolute Neutrophils 1.54 Absolute Lymphocytes 1.04 L Absolute Monocytes 0.23 Absolute Eosinophils 0.00 Absolute Basophils 0.02 Sodium Potassium Chloride Carbon Dioxide Anion Gap BUN Creatinine Estimated GFR/1.73 m2 Glucose Calcium Phosphorus 3.6 Magnesium Total Bilirubin AST ALT Alkaline Phosphatase Total Protein Albumin Lipase TSH Urine Color Cancelled Urine Clarity Cancelled Urine pH Cancelled Ur Specific Morley Cancelled Urine Protein Cancelled Urine Ketones Cancelled Urine Blood Cancelled Urine Nitrite Cancelled Urine Bilirubin Cancelled Urine Urobilinogen Cancelled Ur Leukocyte Esterase Cancelled Urine RBC Urine WBC Ur Epithelial Cells Urine Crystals Urine Bacteria Urine Casts Urine Mucus Ur Culture Indicated? Urine Glucose Cancelled Salicylates Urine Opiates Screen Urine Methadone Screen Acetaminophen Ur Barbiturates Screen Ur Tricyclics Screen Ur Amphetamines Screen U Benzodiazepines Scrn Urine Cocaine Screen Ur THC Screen Ethyl Alcohol COVID-19 Source SARS-CoV-2 (PCR) 07/07/21 07/07/21 10:20 10:20 WBC RBC Hgb Hct MCV MCH MCHC RDW Plt Count MPV Immature Gran % Neutrophils % Lymphocytes % Monocytes % Eosinophils % Basophils % Nucleated RBC % Absolute Neutrophils Absolute Lymphocytes Absolute Monocytes Absolute Eosinophils Absolute Basophils Sodium Potassium Chloride Carbon Dioxide Anion Gap BUN Creatinine Estimated GFR/1.73 m2 Glucose Calcium Phosphorus Magnesium Total Bilirubin AST ALT Alkaline Phosphatase Total Protein Albumin Lipase TSH Urine Color Yellow Urine Clarity Cloudy Urine pH 7.5 Ur Specific Morley 1.020 Urine Protein 100 H Urine Ketones Trace Urine Blood Trace-intact H Urine Nitrite Positive H Urine Bilirubin Small H Urine Urobilinogen 2.0 H Ur Leukocyte Esterase Small Urine RBC 3-5 H Urine WBC 5-10 Ur Epithelial Cells Rare Urine Crystals Urine Bacteria Many Urine Casts Negative Urine Mucus Trace Ur Culture Indicated? Yes Urine Glucose Negative Salicylates Urine Opiates Screen Negative Urine Methadone Screen Negative Acetaminophen Ur Barbiturates Screen Negative Ur Tricyclics Screen Negative Ur Amphetamines Screen Negative U Benzodiazepines Scrn Negative Urine Cocaine Screen Negative Ur THC Screen Negative Ethyl Alcohol COVID-19 Source SARS-CoV-2 (PCR) Last Vital Signs Temp 36.6 C 07/07/21 13:43 Pulse 92 H 07/07/21 13:43 Resp 18 07/07/21 13:00 BP 156/84 H 07/07/21 13:43 Pulse Ox 97 07/07/21 13:43
[2021-07-07] MEDS: Refresh PLUS Eye Drops 0.4ml OU ×2 (15:21→21:01)
[2021-07-07] MEDS: Enoxaparin 40 MG/0.4 ML SYR SC (15:22)
[2021-07-07] MEDS: LORazepam 1 MG TAB PO/SL ×2 (16:55→21:00)
[2021-07-07] MEDS: Normal Saline Flush 10 ML SYR IVP (18:00)
[2021-07-07] MEDS: Sucralfate 1 GM TAB PO (21:01)
[2021-07-08] VITALS (12 sets, daily range): BP systolic 163–193; BP diastolic 86–108; PULSE 78–118; RESP 17–18; TEMP 36–37.5; O2SAT 93–96
[2021-07-08] MEDS: LORazepam 1 MG TAB PO/SL ×3 (00:26→17:07)
[2021-07-08] MEDS: Refresh PLUS Eye Drops 0.4ml OU ×4 (00:27→11:55)
[2021-07-08] MEDS: Ondansetron O.D.T. 4 MG TABEF PO (00:45)
[2021-07-08] MEDS: Metoprolol 5 MG/5 ML VIAL IVP (00:48)
[2021-07-08] MEDS: Metoprolol 25 MG TAB PO ×2 (05:09→11:55)
[2021-07-08] MEDS: Sucralfate 1 GM TAB PO (07:25)
[2021-07-08 07:38] LABS: Abs Immature Grans 0.02 10^3/uL (0.0-0.06); Absolute Basophil Count 0.02 10^3/uL (0.0-0.2); Absolute Eosinophil Count 0.01 10^3/uL (0.0-0.7); Absolute Lymphocyte Count 1.12 10^3/uL (1.2-3.4); Absolute Monocyte Count 0.34 10^3/uL (0.1-0.8); Absolute Neutrophil Count 2.81 10^3/uL (1.2-6.7); Basophils % 0.5; Eosinophils % 0.2; HCT 33.6 % (36.0-46.0); HGB 10.8 g/dL (11.2-15.7); Immature Grans % 0.5; Lymphocytes % 25.9; MCH 32.6 pg (27.0-33.0); MCHC 32.1 % (32.0-36.0); MCV 101.5 fL (80-95); MPV 9.3 fL (8.0-11.0); Monocytes % 7.9; Nucleated RBC 0 %; Platelet Count 144 10^3/uL (130-400); RBC 3.31 10^6/uL (3.93-5.22); RDW 15.5 % (11.7-14.6); RDW-SD 57.7 fL; WBC 4.32 10^3/uL (4.4-10.8)
[2021-07-08 07:56] LABS: Calcium 8.5 mg/dL (8.5-10.1)
[2021-07-08 07:57] LABS: BUN 12 mg/dL (7-18); CREATININE 0.8 mg/dL (0.55-1.02); Chloride 101 mmol/L (98-107); Glucose 114 mg/dL (74-106); Magnesium 1.6 mg/dL (1.8-2.4); Potassium 3.9 mmol/L (3.5-5.1); Sodium 141 mmol/L (136-145)
[2021-07-08] MEDS: FLUoxetine 10 MG TAB PO (08:54)
[2021-07-08] MEDS: Thiamine 100 MG TAB PO (08:55)
[2021-07-08] MEDS: Multivitamin TAB 1 TAB PO (08:55)
[2021-07-08] MEDS: Folic Acid 1 MG TAB PO (08:55)
--- NOTE | 2021-07-08 13:45 | DSE_ITS ---
Date of service: 07/08/21 Time of Service: 13:46 DS: Diagnosis Discharge Diagnosis (1) Alcohol intoxication: Status: Acute (2) Depression with suicidal ideation: Status: Acute (3) Iron deficiency anemia: Status: Chronic (4) Hypertension: Status: Chronic Discharge Plan Disposition Patient Disposition: HOME W/HOME HEALTH SERVICE Condition: Stable Discharge Details Reason For Visit: Alcohol Intoxication,Suicidal Ideation,Alcohol Abu Admit Date/Time: 07/07/21 11:56 Admit Provider: Laly Dumont Attending Provider: Laly Dumont Primary Care Provider: Lavelle Galindo Hospital Course Hospital Course: This is a 76 year old female, well know to [facility], history of ETOH, pancreatitis, depression who was sent in today for ongoing alcohol use and reports of suicidal statements. Her work up in the ED MIGUELINA of 290, otherwise unremarkable. she was admitted to med/surg for medical clearance for mental health evaluation. Overnight she rested comfortably. she remained medically stable. in the am she was cleared for her mental health evaluation. she was no longer suicidal and stable for discharge to home. She will be discharged with resumption of home health services. discharge discussed with DR Scanlon. Home Meds and New Rx's Prescriptions: Continued Xiidra 5 % dropperette 1 drp ophthalmic (eye) BID RF: 0 fluoxetine 10 mg tablet 10 mg PO DAILY Qty: 30 RF: 3 ondansetron 4 mg tablet,disintegrating 4 mg PO Q8H PRN (Reason: nausea and vomiting) Qty: 20 RF: 0 Ensure Active High Protein Liquid 414 ml PO DAILY Qty: 28271 RF: 11 multivitamin [Multiple Vitamins] Tablet 1 tab PO DAILY Qty: 90 RF: 3 thiamine HCl (vitamin B1) 100 mg tablet 100 mg PO DAILY Qty: 90 RF: 3 folic acid 1 mg tablet 1 mg PO DAILY Qty: 90 RF: 3 sucralfate 1 gram tablet 1 g PO BID Qty: 60 RF: 11 Refresh Plus 0.5 % Dropperette 1 drp OU Q4H WHILE AWAKE Qty: 30 RF: 0 Discharge Instructions Instructions: Abuse of Alcohol (DC) Additional Instructions: avoid alcohol. take medication as directed. Stand Alone Forms: Nursing Discharge Form Referrals: Lavelle Galindo MD [Primary Care Provider] - 07/14/21 10:40 am Activity:: Activity as Tolerated Equipment/Supplies:: No Equipment Needed Diet:: As Tolerated Discharge Orders Discharge Orders: Discharge Order (Routine); Ordered 07/08/21 Ordered By: Kimmy Sierra Discharge Data Discharge Date/Time-TO BE ENTERED AT DEPARTURE: 07/08/21 17:18 DS: Summary Time Spent with Patient providing and/or coordinating discharge services: Less than 30 minutes Status at Discharge Functional status at discharge: independent ambulation Overall status at discharge: patient is back to baseline Mental Status: mental status grossly normal Speech and Movement: speech and movement normal Mood: dysthymic mood Affect: sad Exam Const General: comfortable, no acute distress, disheveled and ill appearing chronically Orientation: alert, awake and oriented x3 HENMT Head: normal to inspection, normocephalic and atraumatic Mouth: moist mucous membranes abnormal (dry) Eyes General: appearance normal, both eyes and all related structures Conjunctivae: conjunctivae normal Sclera: sclerae normal Cornea: corneas normal Neck Neck: normal visual inspection and full ROM Resp Effort & Inspection: normal respiratory effort and able to speak in complete sentences Auscultation: diminished lung sounds bilaterally in the lower lung gatica Cardio Rate: regular rate Rhythm: regular rhythm GI Palpation: soft and nontender Skin General skin exam: no rashes or lesions noted Neuro General: patient alert, patient awake, moves all extremities and no focal motor deficits Cognition: normal cognition Speech: speech normal Motor: muscle tone normal throughout and strength 5/5 throughout Extrem General: normal to inspection and full ROM Psych Mental Status: mental status grossly normal Speech and Movement: speech and movement normal Mood: dysthymic mood Affect: sad Attitude: belligerent Thought Process: normal Thought Content: suicidality Insight: fair Judgment: fair DS: Data Vitals/I&O Vitals and I&O: Vital Signs Temperature 37.1 C 07/08/21 11:21 Temperature Source Tympanic 07/08/21 11:21 Pulse 92 H 07/08/21 11:21 Pulse Rhythm Regular 07/08/21 10:36 Pulse 86 07/07/21 12:45 Respiratory Rate 18 07/08/21 11:21 Respiratory Effort 07/08/21 10:36 Respiratory Depth Normal 07/08/21 10:36 Respiratory Pattern Normal 07/08/21 10:36 Blood Pressure 163/96 H 07/08/21 11:21 Blood Pressure Mean 94 07/07/21 12:45 Pulse Oximetry 95 07/08/21 11:21 Oxygen Delivery Method Room Air 07/08/21 11:21 Oxygen Flow Rate 0 07/08/21 11:21 Pain Level 6 07/08/21 11:21 Comment 07/08/21 00:59 Intake & Output 07/07/21 07/08/21 07/08/21 23:59 11:59 23:59 Intake Total 2223.2 / 2223.2 480 / 480 Output Total 50 50 Balance 2223.2 / 3.2 430 / 430 Weight 65.7 kg 59.5 kg Intake: IV 3.2 / 2022.2 Oral 200 / 200 470 / 470 Output: Emesis Other: Urine Color Yellow Yellow Urine Appearance Cloudy Clear Urine Odor Normal Normal Stool Size Large Stool Characteristics Soft Liquid Emesis Description Retching Bile Voiding Methods Bedside Commode Urinal Bedpan Incontinent Incontinent Data Completed and Pending Labs on day of discharge: Labs from last 24 hours 07/08/21 07/08/21 06:50 06:50 WBC 4.32 L D RBC 3.31 L Hgb 10.8 L Hct 33.6 L MCV 101.5 H MCH 32.6 MCHC 32.1 RDW 15.5 H Plt Count 144 MPV 9.3 Immature Gran % 0.5 Neutrophils % 65.0 Lymphocytes % 25.9 Monocytes % 7.9 Eosinophils % 0.2 Basophils % 0.5 Nucleated RBC % 0 Absolute Neutrophils 2.81 Absolute Lymphocytes 1.12 L Absolute Monocytes 0.34 Absolute Eosinophils 0.01 Absolute Basophils 0.02 Sodium 141 Potassium 3.9 Chloride 101 Carbon Dioxide 20.0 L Anion Gap 20.0 H BUN 12 Creatinine 0.8 Estimated GFR/1.73 m2 >= 60.00 Glucose 114 H Calcium 8.5 Magnesium 1.6 L PFSH Medical History Acute alcoholism Acute UTI Adjustment disorder with depressed mood AMBER (acute kidney injury) Alcohol abuse Alcohol intoxication Alcohol intoxication Alcoholic gastritis without bleeding Alcoholic ketosis Allergic rhinitis Anemia Back pain, chronic Blunt head trauma Blunt trauma of multiple sites of trunk Calcific tendinitis of left shoulder CAP (community acquired pneumonia) Cataract (11/07/15) Cervical radicular pain neck pain and DJD [facility] Cervical strain 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) pls refrain from alcohol Chronic alcoholism she will not stop drinking unless she checks with me, so that we can help her avert withdrawal I do not think she is capable on her own--she would need placement to achieve required goal of 3 months of sobriety Chronic diarrhea Closed displaced fracture of proximal phalanx of right index finger with routine healing (06/03/17) Closed right humeral fracture Contusion of left little finger Corneal ulcer, right (~08/23/18) 08/23/18; [facility]- Dehydration Depression Diarrhea Difficult intravenous access Multiple IV attempts, usually requires ultrasound placement. Discharge planning issues DVT prophylaxis Dystrophic nail Elev transaminase/LDH due to alcohol Epigastric abdominal pain Facial fracture due to fall Facial laceration Fall as cause of accidental injury at home as place of occurrence Fall at home Fracture of humerus, left, closed Genital herpes simplex recurrent gential; suppressive Valtrex GERD (gastroesophageal reflux disease) GI bleed (12/20/16) Head contusion Headache History of alcohol abuse Humerus fracture (09/12/19) Right Hyperlipidemia Hypertension Hypokalemia Hypokalemia Hypokalemia Hypomagnesemia Incidental lung nodule, greater than or equal to 8mm 1cm, spiculated, stable for many years, recommend f/u in 6 mo Intractable vomiting Leukopenia Macrocytosis (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 Multiple contusions Multiple fractures of ribs Multiple rib fractures 03/11/19 [facility] Nausea and vomiting in adult Non-cardiac chest pain (09/21/16) [facility] [place] 09/21/16 NEGATIVE MP Osteoarthritis Osteopenia Palliative care patient (03/21/17) Pancreatitis, alcoholic, acute Peripheral edema Photophobia of right eye Pleural effusion on left 03/11/19 [facility] Pneumonia Presacral mass (~09/15/18) 09/15/18 [facility] Rash Rib pain on right side Right rib fracture Sacral mass Sciatica right, epidural injuections [facility] Suicidal ideation Tendinitis of left rotator cuff Tubular adenoma of colon (01/28/17) Urinary incontinence 01/24/13 urethral suspension and sling at [facility] [place] (bladder suspension 1991) UTI (urinary tract infection) UTI (urinary tract infection) Vision loss of right eye 08/17/18;[facility] Wernicke encephalopathy Surgical History Bladder Surgery suspension Colonoscopy - MAC (01/28/17) EGD - MAC (12/20/16) History of bilateral ligation of fallopian tubes History of Surgical Procedure a. Bladder repair. Ligation of fallopian tube Repair bladder injury, simple Family History Mother No problems noted. Father , DROWNED at age 50. No problems noted. Sister Personal history of malignant neoplasm MELANOMA Sister No problems noted. Grandfather Personal history of malignant neoplasm STOMACH Grandfather Personal history of malignant neoplasm PROSTATE Grandmother Heart disease [place] Acute ill-defined cerebrovascular disease Grandmother Personal history of malignant neoplasm UTERINE Aunt , [place] Heart disease [place] Aunt , [place] Heart disease Brother No problems noted. Social History Smoking/Tobacco Use Status: Never Smoking risk assessment performed?: Yes Alcohol Intake: current Alcohol Intake frequency: 3 or more drinks per day Alcohol type: hard liquor Drug use: Never Substance use type: does not use Current gender identity: female Do you feel safe at home: Yes Do you feel safe in your relationship?: Yes Additional Social history: Pt has been binge drinking since 4am
--- NOTE | 2021-07-08 14:03 | W.INMHPGNOTE ---
Date of service: 07/08/21 Time of Service: 14:03 Mental Health Crisis Note Presenting Issue How did you arrive at the ED and why did you come: [facility] is requesting and evaluation of Pt after she was admitted on 07.07.2021 for intoxication and she had made a comment about suicide. Precipitating Factors Pt is adamant that she is not going to kill herself. She does not appear to be having any delusions however is presenting as being significantly depressed. Disposition BEHAVIOR: Pt presents lying in bed drinking a hot beverage. She is disheveled in appearance. She made fair eye contact but needed to be reminded that this clinician was there via zoom to speak with her by her CPSO. She is cooperative but reports and appears to be in pain. She described her mood as depressed and anxious. She has fair insight and judgment at this time but that clearly, as documented in her chart changes when she is under the influence of ETOH. Pt reported she has not slept in a month or more and her appetite is non existent. EYE CONTACT: see above MOOD: see above AFFECT: see above APPETITE: see above SLEEP(trouble falling/staying asleep: see above Plan Pt will allow an in house referral for counseling. She at this time does not meet criteria for an inpatient referral but would benefit from a substance abuse program which she is not ready for at the time of this assessment. This clinician will put in a referral for substance abuse counseling. Signature Clinician's Name/Title: Gianna Mcneal MS, [facility] Emergency Services Clinician, [facility]
[2021-07-08] MEDS: MAGNESIUM SULFATE 2 GM/50 ML BAG IVPB (14:18)
[2021-07-08] MEDS: Normal Saline Flush 10 ML SYR IVP (14:21)
[2021-07-08] MEDS: Enoxaparin 40 MG/0.4 ML SYR SC (14:21)
--- NOTE | 2021-07-08 16:53 | PDOC.CMPRO ---
- If Service Date Differs Date of service: 07/08/21 Time of Service: 16:53 Care Management Progress Note S/O: Leticia presented to the ED yesterday intoxicated and making suicidal statements. Per provider, she became medically cleared this morning. She was lying in bed when CM met with her. She stated that they make a big deal out of it, when [facility] asked about her suicidal statements. She stated that she is depressed. [facility] coordinated a zoom meeting with KAMLA Katz, who evaluated her. Gianna reported that she does not meet criteria for inpatient admission to a psychiatric facility, but that she did agree to Gianna putting in a referral for outpatient therapy. Leticia was discharged home, via [employer] private vehicle, coordinated by [facility]. [facility] will continue to follow. A: Leticia is a 76 year old female admitted to [facility] on 07/08/21 for ETOH, SI. P: Leticia does not meet criteria for inpatient psychiatric admission, per KAMLA Katz. She will be discharged home with a referral for outpatient therapy, coordinated by KAMLA. She will follow up with her PCP and discharge plan of care. She was driven home by [employer] private vehicle, coordinated by [facility].
== END 2021-07-08 17:18 | disposition home health service (06) | DRG 897 ==
LOC: ER 12:23 → MS 13:02
PROVIDERS: Admitting Provider Internal Medicine; Emergency Provider Physician Assistant; PCP Family Medicine; Visit Provider Internal Medicine
DX: F10.129 Alcohol abuse with intoxication, unspecified (principal); R45.851 Suicidal ideations; E51.2 Wernicke's encephalopathy; F32.A Depression, unspecified; D50.8 Other iron deficiency anemias; I10 Essential (primary) hypertension; Z20.822 Contact with and (suspected) exposure to COVID-19; Z91.14 Patient's other noncompliance with medication regimen; G89.29 Other chronic pain; M54.9 Dorsalgia, unspecified; K21.9 Gastro-esophageal reflux disease without esophagitis; R91.1 Solitary pulmonary nodule; R29.6 Repeated falls; K29.20 Alcoholic gastritis without bleeding; K52.9 Noninfective gastroenteritis and colitis, unspecified; M54.12 Radiculopathy, cervical region; E78.5 Hyperlipidemia, unspecified; Y90.8 Blood alcohol level of 240 mg/100 ml or more
CPT/HCPCS: 36415; 80048; 80053; 80307; 83690; 87635; 96361; 96365; 99285; J1650; 80320; 80329; 81003; 81015; 83735; 84100; 84443; 85025; 87086; 99223; 99238

== ENCOUNTER 2021-07-26 07:26 | Inpatient (IN) | payer MEDICARE, SELFPAY ==
[2021-07-26] VITALS (65 sets, daily range): BP systolic 144–225; BP diastolic 72–114; PULSE 69–132; RESP 14–34; TEMP 36.2–37.5; O2SAT 93–100
--- NOTE | 2021-07-26 07:15 | RT.EKG_ITS ---
APPROVED REPORT Exam: Resting ECG Reason for Exam: weakness Patient Location: E HR:121 bpm ECG Measurements Heart Rate 121 AXIS NH 165 P 68 QRSd 87 QRS -29 QT 332 T -3 QTc 471 Conclusion Sinus tachycardia...rate> 99 Left ventricular hypertrophy...multiple voltage criteria There are no significant changes compared to prior EKG performed on 05/28/2021 at 22:44.
--- NOTE | 2021-07-26 08:10 | DI.CT_ITS ---
Exam(s) CT CHEST PE CTA EXAM: CT CHEST PE CTA CLINICAL HISTORY: sob/chest pressure, tachy 120's. TECHNIQUE: Imaging Protocol: CT angiography of the chest was performed using pulmonary embolus tari col. Multi planar reconstructions were performed. CONTRAST MATERIAL: Intravenous: Omnipaque 350 Contrast volume: 100 cc COMPARISON: CT CT CHEST/ABD/PEL WO from 11/10/[address] CHEST/ABD/PEL WO from 11/10/[address] ABDOMEN PELVIS W from 05/29/2021 FINDINGS: CHEST: Examination is somewhat limited by patient motion artifact. There is suboptimal filling of di stal pulmonary arteries towards the lung bases. PULMONARY ARTERIES: There are no obvious intraluminal filling defects to suggest acute pulmonary embo li. LUNGS: There is a spiculated nodule in the right upper lobe sub apical region measuring approximately 11 x 11 millimeters.. There are no pleural effusions. MEDIASTINUM: There is no hilar nor mediastinal adenopathy. Visualized thyroid unremarkable. CARDIAC: Heart size is upper normal. There is no pericardial effusion.Ascending thoracic aorta is di lated maximum diameter 3.9 cm. No dissection evident. There is no significant shift of the interve ntricular septum. PARTIALLY VISUALIZED UPPERMOST ABDOMEN: Hepatic steatosis. No splenomegaly. Kidney cysts noted. OSSEOUS: Multiple bilateral healed rib fractures. No acute fractures evident. No lytic osseous lesi ons.. IMPRESSION: 1. No evidence of acute pulmonary emboli. No evidence of pulmonary infarction.No pleural effusions. 2. However, there is a spiculated 11 millimeter nodule in the right upper lobe which is suspicious an d will require appropriate follow-up to rule out malignancy. There is no obvious intrathoracic adeno julissa. 3. Ascending thoracic aortic aneurysm maximum diameter 3.9 cm. No dissection. RADIATION DOSE DELIVERED: 449.4mGy.cm Total DLP DATA REPOSITORY: All CT scans at this facility are submitted to the National Radiology Data Registry (NRDR) Dose Index Registry (DIR) with the [employer] ([employer]). RADIATION OPTIMIZATION: All CT scans at this facility use at least one of these dose optimization te chniques: automated exposure control; mA and/or kV adjustment per patient size (includes targeted exa ms where dose is matched to clinical indication); or iterative reconstruction.
--- NOTE | 2021-07-26 08:15 | DI.RAD_ITS ---
Exam(s) XR HIP LT COMPLETE AP PELVIS EXAM: XR HIP LT COMPLETE AP PELVIS CLINICAL HISTORY: fall/pain. TECHNIQUE: 2D digital imaging was performed. COMPARISON: CR,XR XR PELVIS AP from 01/27/2021 FINDINGS: No evidence of pelvic nor hip fractures. Mild degenerative changes in the hips. Contrast is seen in the ureters and urinary bladder. No osseous lesions. IMPRESSION: No fractures evident. DATA REPOSITORY: RADIATION DOSE DELIVERED:
--- NOTE | 2021-07-26 08:24 | W.ED.GENAD ---
Discharge Plan Disposition Patient Disposition: [facility] INPATIENT Condition: Stable Discharge Details Clinical Impression: Pneumonia, Hypomagnesemia, Nausea & vomiting, Abdominal pain Primary Care Provider: Lavelle Galindo ED Provider: Gwyn Sandoval Home Meds and New Rx's Prescriptions: No Action Xiidra 5 % dropperette 1 drp ophthalmic (eye) BID RF: 0 fluoxetine 10 mg tablet 10 mg PO DAILY Qty: 30 RF: 3 ondansetron 4 mg tablet,disintegrating 4 mg PO Q8H PRN (Reason: nausea and vomiting) Qty: 20 RF: 0 Ensure Active High Protein Liquid 414 ml PO DAILY Qty: 67974 RF: 11 multivitamin [Multiple Vitamins] Tablet 1 tab PO DAILY Qty: 90 RF: 3 thiamine HCl (vitamin B1) 100 mg tablet 100 mg PO DAILY Qty: 90 RF: 3 folic acid 1 mg tablet 1 mg PO DAILY Qty: 90 RF: 3 sucralfate 1 gram tablet 1 g PO BID Qty: 60 RF: 11 Refresh Plus 0.5 % Dropperette 1 drp OU Q4H WHILE AWAKE Qty: 30 RF: 0 Medical Decision Making This is a 76-year-old female, multiple comorbidities, presenting to the ER via EMS for evaluation of abdominal pain, nausea, vomiting, cough, chest pressure that began sometime yesterday. Patient reports that she has not drank any alcohol since . Clinically she presents with hypertension, tachycardia, appears dry. Given her tachycardia and shortness of breath, will obtain a cardiac work-up including a CTA of the chest. Will give IV Zofran, and a banana bag. Given her history of alcohol abuse, no alcohol in the past few days, will also give Ativan as I am concerned there may be a component of withdrawal Patient medicated with 2 mg IV Ativan. Heart rate now 104, blood pressure 180s over 90s. Zofran has helped her symptoms, no longer dry heaving. Laboratory values reveal no evidence of leukocytosis or anemia. Platelet count appropriate to team. Lactate of 2.0, sodium 137 potassium 3.5 creatinine 0.8 GFR greater than 60. Glucose 196, calcium 9.4, magnesium 1.1 total bili 3.9 AST 141 ALT 83 alk phosphatase 222. Troponin less than 0.05. BNP slightly elevated at 803. Urine trace ketones no signs of infection. Alcohol less than 3 Covid negative X-ray of hip and pelvis unremarkable. CTA of chest reveals right upper lobe. Question a minute nonocclusive distal right lower lobe pulmonary artery emboli. Cardiomegaly. Interstitial infiltrate right infrahilar region. Bibasal atelectasis This is a 76-year-old female with multiple falls, given there is a question of a PE but this has not been confirmed, I am hesitant to immediately anticoagulate. Believe treating with a dose of Lovenox and then having our radiology team further evaluate the CTA tomorrow is reasonable. Given her magnesium of 1.1 we will also give 1 g IV. Given her interstitial infiltrate, will give IV Rocephin and doxycycline. Her LFTs are chronically elevated although her total bili is higher than it usually is. She does not have a positive Zavala sign but given her overall presentation will obtain CT imaging of her abdomen pelvis with contrast. CT imaging of the abdomen and pelvis does not show anything acute currently. Patient did tolerate ice chips. Heart rate is currently 98 blood pressure 186/99. Will discuss admission with our hospitalist team for pneumonia. Case discussed with Dr. Blake who is agreeable to admitting the patient, he will place admission orders Medical Records Medical records reviewed: Yes I reviewed the patient's medical records. Imaging Data Radiologic Study: Attestation: I personally reviewed and interpreted this imaging study as follows: Imaging: X-Ray Radiologist's impression: PROCEDURE INFORMATION: Exam: XR Left Hip Exam date and time: 07/26/2021 8:15 AM Age: 76 years old Clinical indication: Other: Fall/pain TECHNIQUE: Imaging protocol: XR Left hip. Views: 2 or 3 views hip with pelvis when performed. COMPARISON: CT ABDOMEN PELVIS W 05/29/2021 11:17 AM FINDINGS: Bones/joints: There is degenerative change in the hips and lower lumbar spine. There is no fracture. Soft tissues: Unremarkable. Organs: There is contrast material within the distal ureters bilaterally as well as within the urinary bladder. IMPRESSION: Degenerative changes, no fractures Radiologic Study #2: Attestation: I personally reviewed and interpreted this imaging study as follows: Imaging: CT Scan Radiologist's impression: PROCEDURE INFORMATION: Exam: CTA Chest With Contrast Exam date and time: 07/26/2021 8:47 AM Age: 76 years old Clinical indication: Other: Sob/chest pressure, tachy 120's TECHNIQUE: Imaging protocol: Computed tomographic angiography of the chest with contrast. 3D rendering (Not supervised by radiologist): MIP and/or 3D reconstructed images were created by the technologist. Radiation optimization: All CT scans at this facility use at least one of these dose optimization techniques: automated exposure control; mA and/or kV adjustment per patient size (includes targeted exams where dose is matched to clinical indication); or iterative reconstruction. Contrast material: OMNIPAQUE 350; Contrast volume: 100 ml; Contrast route: INTRAVENOUS (IV); COMPARISON: CT CHEST PE ABD PELVIS W 11/02/2020 5:23 PM FINDINGS: Pulmonary arteries: There may be small emboli in the distal right lower lobe pulmonary artery. The exam is compromised by patient motion. Aorta: There is an ascending aortic aneurysm greatest transverse dimension 39 mm. The transverse aortic arch and descending thoracic aorta are normal Lungs: There is a spiculated mass in the right upper lobe measuring 11 x 11 mm, image a the 111 series 5. There is patchy increased interstitial markings in the right infrahilar region. There is atelectasis in the posterior CP angles bilaterally Pleural spaces: Unremarkable. No pneumothorax. No pleural effusion. Heart: There is cardiomegaly. Lymph nodes: Unremarkable. No enlarged lymph nodes. LINDA CONROY Preliminary Radiology Report [employer] (QA) DISCREPANCY? If there is a discrepancy between the preliminary and final interpretation, please notify [facility] via [email or web address]. If you do not have access to our QA portal, call our QA team at [phone] CONFIDENTIALITY STATEMENT This report is intended only for the use of the referring physician, and only in accordance with law, If you received this in error, call [phone] Page 2 of 2 Liver: there is marked fatty infiltration of the liver. Kidneys and ureters: There are simple appearing right renal cysts the largest is in the lower pole, measuring 33 mm. Bones/joints: Unremarkable. No acute fracture. Soft tissues: Unremarkable. IMPRESSION: 1. Right upper lobe spiculated mass, soft tissue sampling warrants consideration. At a minimum, CT scan at 3-6 months recommended by Fleischner Society. 2. Question a minute nonocclusive distal right lower lobe pulmonary artery emboli. 3. Cardiomegaly. 4. Interstitial infiltrate right infrahilar region. 5. Bibasilar atelectasis. 6. Hepatic steatosis. 7. Renal cysts. Radiologic Study #3: Attestation: I personally reviewed and interpreted this imaging study as follows: Imaging: CT Scan Radiologist's impression: PROCEDURE INFORMATION: Exam: CT Abdomen And Pelvis With Contrast Exam date and time: 07/26/2021 11:31 AM Age: 76 years old Clinical indication: Other: Abd pain, n/v, bili of 3.9 TECHNIQUE: Imaging protocol: Computed tomography of the abdomen and pelvis with contrast. Radiation optimization: All CT scans at this facility use at least one of these dose optimization techniques: automated exposure control; mA and/or kV adjustment per patient size (includes targeted exams where dose is matched to clinical indication); or iterative reconstruction. Contrast material: OMNIPAQUE 350; Contrast volume: 80 ml; Contrast route: INTRAVENOUS (IV); COMPARISON: CT ABDOMEN PELVIS W 05/29/2021 11:17 AM FINDINGS: Lungs: There is bibasilar atelectasis in the posterior CP angles of the lungs. Liver: There is marked fatty infiltration of the liver. Gallbladder and bile ducts: Normal. No calcified stones. No ductal dilation. Pancreas: Normal. No ductal dilation. Spleen: Normal. No splenomegaly. Adrenal glands: There is a 12 mm mass in the left adrenal. There is a left adrenal mass measuring 13 mm, unchanged. Kidneys and ureters: The multiple simple appearing renal cysts the largest is in the lower pole of the right kidney, unchanged. There is a hyperdense cyst extending exophytically from the interpolar region of the left kidney measuring 7 mm, unchanged from prior study. Stomach and bowel: Unremarkable. No obstruction. No mucosal thickening. Appendix: No evidence of appendicitis. LINDA CONROY Preliminary Radiology Report [employer] (QA) DISCREPANCY? If there is a discrepancy between the preliminary and final interpretation, please notify [facility] via [email or web address]. If you do not have access to our QA portal, call our QA team at [phone] CONFIDENTIALITY STATEMENT This report is intended only for the use of the referring physician, and only in accordance with law, If you received this in error, call [phone] Page 2 of 2 Intraperitoneal space: Unremarkable. No free air. No significant fluid collection. Vasculature: Unremarkable. No abdominal aortic aneurysm. Lymph nodes: Unremarkable. No enlarged lymph nodes. Urinary bladder: Unremarkable as visualized. Reproductive: Unremarkable as visualized. Bones/joints: Unremarkable. No acute fracture. Soft tissues: There is a hiatus hernia. There are bilateral inguinal hernias with only fat within them. Other findings: again noted is a multilobulated soft tissue mass measuring 49 x 34 mm in the presacral space. The mass contains solid elements as well as a halo of surrounding fat. The this is unchanged from prior study dated 04/15/2021. IMPRESSION: 1. Left adrenal mass unchanged. 2. Hepatic steatosis unchanged. 3. Presacral, retroperitoneal mass with fat and soft tissue density components unchanged. 4. Bilateral inguinal hernias with fat within them, unchanged. Lab Data Lab results reviewed: Yes I reviewed the patient's lab results. Labs: 07/26/21 11:03 Blood Blood Culture - Pending 07/26/21 10:45 Blood Blood Culture - Pending Laboratory Tests Range/Units 07/26/21 07/26/21 07/26/21 07:41 07:41 07:41 WBC (4.4-10.8) 10^3/uL 5.57 RBC (3.93-5.22) 10^6/uL 3.56 L Hgb (11.2-15.7) g/dL 12.3 Hct (36.0-46.0) % 36.8 MCV (80-95) fL 103.4 H MCH (27.0-33.0) pg 34.6 H MCHC (32.0-36.0) % 33.4 RDW (11.7-14.6) % 15.4 H Plt Count (130-400) 10^3/uL 216 MPV (8.0-11.0) fL 9.6 Immature Gran % 0.5 Neutrophils % 86.7 Lymphocytes % 5.4 Monocytes % 7.0 Eosinophils % 0.0 Basophils % 0.4 Nucleated RBC % % 0 Absolute Neutrophils (1.2-6.7) 10^3/uL 4.83 Absolute Lymphocytes (1.2-3.4) 10^3/uL 0.30 L Absolute Monocytes (0.1-0.8) 10^3/uL 0.39 Absolute Eosinophils (0.0-0.7) 10^3/uL 0.00 Absolute Basophils (0.0-0.2) 10^3/uL 0.02 VBG Lactate (0.6-1.4) mmol/L Sodium (136-145) mmol/L 137 Potassium (3.5-5.1) mmol/L 3.5 Chloride (98-107) mmol/L 98 Carbon Dioxide (21.0-32.0) mmol/L 23.6 Anion Gap (3-11) mmol/L 15.4 H BUN (7-18) mg/dL 12 Creatinine (0.55-1.02) mg/dL 0.8 Estimated GFR/1.73 m2 (mL/min/1.73m2) >= 60.00 Glucose (74-106) mg/dL 196 H Calcium (8.5-10.1) mg/dL 9.4 Magnesium (1.8-2.4) mg/dL 1.1 L Total Bilirubin (0.2-1.0) mg/dL 3.9 H AST (15-37) U/L 141 H ALT (14-59) U/L 83 H Alkaline Phosphatase (46-116) U/L 222 H Troponin I (<0.06) ng/mL < 0.05 NT-Pro-B Natriuret Pep (<300) pg/mL 803 H Total Protein (6.4-8.2) g/dL 7.3 Albumin (3.4-5.0) g/dL 3.5 Lipase (73-393) U/L 99 Urine Color (Yellow) Urine Clarity (Clear) Urine pH (5-8) Ur Specific [place] (1.005-1.025) Urine Protein (Negative) mg/dL Urine Ketones (Negative) mg/dL Urine Blood (Negative) Urine Nitrite (Negative) Urine Bilirubin (Negative) Urine Urobilinogen (Up TO 0.2) EU/dL Ur Leukocyte Esterase (Negative) Urine Glucose (Negative) mg/dL Ethyl Alcohol (<10) mg/dL COVID-19 Source SARS-CoV-2 (PCR) (Negative) Range/Units 07/26/21 07/26/21 07/26/21 07:41 08:25 10:10 WBC (4.4-10.8) 10^3/uL RBC (3.93-5.22) 10^6/uL Hgb (11.2-15.7) g/dL Hct (36.0-46.0) % MCV (80-95) fL MCH (27.0-33.0) pg MCHC (32.0-36.0) % RDW (11.7-14.6) % Plt Count (130-400) 10^3/uL MPV (8.0-11.0) fL Immature Gran % Neutrophils % Lymphocytes % Monocytes % Eosinophils % Basophils % Nucleated RBC % % Absolute Neutrophils (1.2-6.7) 10^3/uL Absolute Lymphocytes (1.2-3.4) 10^3/uL Absolute Monocytes (0.1-0.8) 10^3/uL Absolute Eosinophils (0.0-0.7) 10^3/uL Absolute Basophils (0.0-0.2) 10^3/uL VBG Lactate (0.6-1.4) mmol/L Sodium (136-145) mmol/L Potassium (3.5-5.1) mmol/L Chloride (98-107) mmol/L Carbon Dioxide (21.0-32.0) mmol/L Anion Gap (3-11) mmol/L BUN (7-18) mg/dL Creatinine (0.55-1.02) mg/dL Estimated GFR/1.73 m2 (mL/min/1.73m2) Glucose (74-106) mg/dL Calcium (8.5-10.1) mg/dL Magnesium (1.8-2.4) mg/dL Total Bilirubin (0.2-1.0) mg/dL AST (15-37) U/L ALT (14-59) U/L Alkaline Phosphatase (46-116) U/L Troponin I (<0.06) ng/mL NT-Pro-B Natriuret Pep (<300) pg/mL Total Protein (6.4-8.2) g/dL Albumin (3.4-5.0) g/dL Lipase (73-393) U/L Urine Color (Yellow) Yellow Urine Clarity (Clear) Clear Urine pH (5-8) 7.5 Ur Specific [place] (1.005-1.025) 1.015 Urine Protein (Negative) mg/dL Negative Urine Ketones (Negative) mg/dL Trace H Urine Blood (Negative) Negative Urine Nitrite (Negative) Negative Urine Bilirubin (Negative) Negative Urine Urobilinogen (Up TO 0.2) EU/dL 1.0 H Ur Leukocyte Esterase (Negative) Negative Urine Glucose (Negative) mg/dL Negative Ethyl Alcohol (<10) mg/dL < 3.0 COVID-19 Source Nasal/Nares SARS-CoV-2 (PCR) (Negative) Negative Range/Units 07/26/21 10:45 WBC (4.4-10.8) 10^3/uL RBC (3.93-5.22) 10^6/uL Hgb (11.2-15.7) g/dL Hct (36.0-46.0) % MCV (80-95) fL MCH (27.0-33.0) pg MCHC (32.0-36.0) % RDW (11.7-14.6) % Plt Count (130-400) 10^3/uL MPV (8.0-11.0) fL Immature Gran % Neutrophils % Lymphocytes % Monocytes % Eosinophils % Basophils % Nucleated RBC % % Absolute Neutrophils (1.2-6.7) 10^3/uL Absolute Lymphocytes (1.2-3.4) 10^3/uL Absolute Monocytes (0.1-0.8) 10^3/uL Absolute Eosinophils (0.0-0.7) 10^3/uL Absolute Basophils (0.0-0.2) 10^3/uL VBG Lactate (0.6-1.4) mmol/L 2.0 H Sodium (136-145) mmol/L Potassium (3.5-5.1) mmol/L Chloride (98-107) mmol/L Carbon Dioxide (21.0-32.0) mmol/L Anion Gap (3-11) mmol/L BUN (7-18) mg/dL Creatinine (0.55-1.02) mg/dL Estimated GFR/1.73 m2 (mL/min/1.73m2) Glucose (74-106) mg/dL Calcium (8.5-10.1) mg/dL Magnesium (1.8-2.4) mg/dL Total Bilirubin (0.2-1.0) mg/dL AST (15-37) U/L ALT (14-59) U/L Alkaline Phosphatase (46-116) U/L Troponin I (<0.06) ng/mL NT-Pro-B Natriuret Pep (<300) pg/mL Total Protein (6.4-8.2) g/dL Albumin (3.4-5.0) g/dL Lipase (73-393) U/L Urine Color (Yellow) Urine Clarity (Clear) Urine pH (5-8) Ur Specific [place] (1.005-1.025) Urine Protein (Negative) mg/dL Urine Ketones (Negative) mg/dL Urine Blood (Negative) Urine Nitrite (Negative) Urine Bilirubin (Negative) Urine Urobilinogen (Up TO 0.2) EU/dL Ur Leukocyte Esterase (Negative) Urine Glucose (Negative) mg/dL Ethyl Alcohol (<10) mg/dL COVID-19 Source SARS-CoV-2 (PCR) (Negative) ECG Data Attestation: I personally reviewed and interpreted this ECG (s) as follows: Interpretation: Please see official report by Dr. Lafleur. Sinus tachycardia, ventricular rate of 121. Left ventricular hypertrophy. No dynamic changes when compared to previous EKG HPI General Mode of arrival: EMS. Date/Time Provider Initiated Documentation: 07/26/21 07:59. Limitations to Documentation: no limitations. Information obtained by: patient and EMS. HPI Narrative: This is a 76-year-old female, past medical history that includes alcohol abuse, adjustment disorder, depression, AMBER, gastritis, anemia, elevated LFTs, pancreatitis, multiple falls, GERD, hypertension, hypokalemia, hypomagnesemia, lung nodule, Warnicke encephalopathy, presenting to the ER via EMS for evaluation of what she describes as simply not feeling well over the past 24 hours, diffuse upper abdominal pain, nausea, vomiting, chest pressure, cough. She is vaccinated for Covid. Patient denies recent illness or sick contacts. She denies headache, visual changes, neck pain, chest pain, productive cough, numbness, tingling, weakness in her extremities. Denies pain or swelling in her lower extremities. Patient states that she has not drank any alcohol since day. She tells me that she has been compliant with her typical medications. She does report multiple falls, denies any headache but does report left hip pain. Patient reports the pain in her abdomen is crampy in nature. Mild to moderate, deep pressure in her chest is worse after vomiting. Related Data Home Medications Medication Instructions Recorded Confirmed Refresh Plus 1 drp OU Q4H WHILE AWAKE #30 each 06/20/19 07/26/21 food supplemt, lactose-reduced 414 ml PO DAILY #10442 ml 08/24/19 07/26/21 lifitegrast 5 % eye drops in a 1 drp OPHTHALMIC (EYE) BID 08/05/20 07/26/21 dropperette folic acid 1 mg tablet 1 mg PO DAILY #90 tab 09/05/20 07/26/21 multivitamin 1 tab PO DAILY #90 tab 09/05/20 07/26/21 thiamine HCl (vitamin B1) 100 mg 100 mg PO DAILY #90 tab 09/05/20 07/26/21 tablet ondansetron 4 mg disintegrating 4 mg PO Q8H PRN #20 tab 04/28/21 07/26/21 tablet fluoxetine 10 mg tablet 10 mg PO DAILY #30 tab 06/10/21 07/26/21 sucralfate 1 gram tablet 1 g PO BID #60 tab 06/11/21 07/26/21 Previous Rx's Medication Instructions Recorded Refresh Plus 1 drp OU Q4H WHILE AWAKE #30 each 06/20/19 food supplemt, lactose-reduced 414 ml PO DAILY #06753 ml 08/24/19 folic acid 1 mg tablet 1 mg PO DAILY #90 tab 09/05/20 multivitamin 1 tab PO DAILY #90 tab 09/05/20 thiamine HCl (vitamin B1) 100 mg 100 mg PO DAILY #90 tab 09/05/20 tablet ondansetron 4 mg disintegrating 4 mg PO Q8H PRN #20 tab 04/28/21 tablet fluoxetine 10 mg tablet 10 mg PO DAILY #30 tab 06/10/21 sucralfate 1 gram tablet 1 g PO BID #60 tab 06/11/21 Allergies Allergy/AdvReac Type Severity Reaction Status Date / Time Penicillins Allergy Mild Rash Verified 07/26/21 07:43 ramipril Allergy Unknown ITCHING Verified 07/26/21 07:43 meperidine [From Demerol] AdvReac Severe Nausea Verified 07/26/21 07:43 bupropion AdvReac Mild GI upset Verified 07/26/21 07:43 AMBER Inhibitors AdvReac Unknown COUGH Verified 07/26/21 07:43 alendronate sodium AdvReac Unknown GI Distress Verified 07/26/21 07:43 clarithromycin AdvReac Unknown intolerant Verified 07/26/21 07:43 paroxetine AdvReac Unknown Diarrhea Verified 07/26/21 07:43 General Stated Complaint: GenMedical JORDAN: 3 Review of Systems Constitutional Constitutional: Reports fatigue, Denies fever(s) and Denies headache(s) Eyes Eyes: Denies change in vision ENT Ears, Nose, Mouth, and Throat: Denies headache(s) and Denies neck pain Cardiovascular Cardiovascular: Reports chest pain (Described as pressure) and Denies dyspnea Respiratory Respiratory: Reports cough and Denies dyspnea Gastrointestinal Gastrointestinal: Reports abdominal pain, Reports nausea and Reports vomiting Genitourinary Genitourinary: Denies dysuria Musculoskeletal Musculoskeletal: Denies back pain, Denies neck pain, Denies numbness and Denies tingling Integumentary/Breasts Skin/Breast: Denies rash Neurologic Neurologic: Denies headache(s), Denies numbness, Denies tingling and Reports weakness (Generalized) Psychiatric Psychiatric: Denies suicidal ideation Endocrine Endocrine: Reports fatigue Hematologic/Lymphatic Hematologic/Lymphatic: Denies easy bleeding and Denies easy bruising [facility] Active Problem List Depression with suicidal ideation (Acute) Alcohol intoxication (Acute) Alcohol abuse (Acute) Diarrhea (Acute) Epigastric pain (Acute) Nausea and vomiting (Acute) Dehydration (Acute) Hypokalemia (Acute) Discharge planning issues (Acute) C. difficile colitis (Acute) Palliative care patient (Acute) Difficult intravenous access (Acute) Pancreatitis (Chronic) PTSD (post-traumatic stress disorder) (Acute) Anemia (Chronic) Depression (Chronic) Foot pain, right (Acute) T12 compression fracture (Acute) Presacral mass (Chronic) Deviated nasal septum (Acute) Frequent falls (Chronic) Head injury (Acute) Transaminitis (Acute) Ambulatory dysfunction (Chronic) Shoulder pain, right (Chronic) DVT prophylaxis (Acute) Suicidal ideation (Acute) Dry eye (Acute) Pruritus (Acute) Dystrophic nail (Acute) AMBER (acute kidney injury) (Acute) Iron deficiency anemia (Chronic) Alcohol abuse (Chronic) Hypomagnesemia (Chronic) Discharge planning issues (Acute) UTI (urinary tract infection) (Acute) Fall (Acute) Atelectasis of left lung (Chronic) Advance directive on file (Acute) Nodule of upper lobe of right lung (Acute ~09/13/18) Cataract (Chronic 11/07/15) Hypertension (Chronic) Hyperlipidemia (Chronic) Back pain, chronic (Chronic) Depression (Chronic) Osteopenia (Chronic) Medical History Acute alcoholism Acute UTI Adjustment disorder with depressed mood AMBER (acute kidney injury) Alcohol intoxication Alcohol intoxication Alcoholic gastritis without bleeding Alcoholic ketosis Allergic rhinitis Anemia Blunt head trauma Blunt trauma of multiple sites of trunk Calcific tendinitis of left shoulder CAP (community acquired pneumonia) Cervical radicular pain neck pain and DJD [facility] Cervical strain 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) pls refrain from alcohol Chronic alcoholism she will not stop drinking unless she checks with me, so that we can help her avert withdrawal I do not think she is capable on her own--she would need placement to achieve required goal of 3 months of sobriety Chronic diarrhea Closed displaced fracture of proximal phalanx of right index finger with routine healing (06/03/17) Closed right humeral fracture Contusion of left little finger Corneal ulcer, right (~08/23/18) 08/23/18; [facility] Dehydration Elev transaminase/LDH due to alcohol Epigastric abdominal pain Facial fracture due to fall Facial laceration Fall as cause of accidental injury at home as place of occurrence Fall at home Fracture of humerus, left, closed Genital herpes simplex recurrent gential; suppressive Valtrex GERD (gastroesophageal reflux disease) GI bleed (12/20/16) Head contusion Headache History of alcohol abuse Humerus fracture (09/12/19) Right Hypertension Hypokalemia Hypokalemia Hypomagnesemia Incidental lung nodule, greater than or equal to 8mm 1cm, spiculated, stable for many years, recommend f/u in 6 mo Intractable vomiting Leukopenia Macrocytosis (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 Multiple contusions Multiple fractures of ribs Multiple rib fractures 03/11/19 [facility] Non-cardiac chest pain (09/21/16) [facility] [place] 09/21/16 NEGATIVE MP Osteoarthritis Palliative care patient (03/21/17) Pancreatitis, alcoholic, acute Peripheral edema Photophobia of right eye Pleural effusion on left 03/11/19 [facility] Pneumonia Presacral mass (~09/15/18) 09/15/18 [facility] Rash Rib pain on right side Right rib fracture Sacral mass Sciatica right, epidural injuections [facility]Care Suicidal ideation Tendinitis of left rotator cuff Tubular adenoma of colon (01/28/17) Urinary incontinence 01/24/13 urethral suspension and sling [place] [facility] [place] (bladder suspension 1991) UTI (urinary tract infection) UTI (urinary tract infection) 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 Bladder repair. Ligation of fallopian tube Repair bladder injury, simple Family History Mother No problems noted. Father , DROWNED at age 50. No problems noted. Sister Personal history of malignant neoplasm MELANOMA Sister No problems noted. Grandfather Personal history of malignant neoplasm STOMACH Grandfather Personal history of malignant neoplasm PROSTATE Grandmother Heart disease LA Acute ill-defined cerebrovascular disease Grandmother Personal history of malignant neoplasm UTERINE Aunt , LA Heart disease LA Aunt , LA Heart disease Brother No problems noted. Social History Smoking/Tobacco Use Status: Former Tobacco Use Quit Date: 08/05/20 Smoking risk assessment performed?: Yes Alcohol Intake: current Alcohol Intake frequency: 3 or more drinks per day Alcohol type: hard liquor Drug use: Never Substance use type: does not use Current gender identity: female Do you feel safe at home: Yes Do you feel safe in your relationship?: Yes Additional Social history: Pt has been binge drinking since 4am Exam Const General: cooperative, disheveled and other (Dry heaving) Orientation: alert, awake and oriented x3 HENMT Head: normal to inspection, normocephalic and atraumatic Face and sinus: normal facial exam Mouth: moist mucous membranes abnormal (Dry) Eyes General: appearance normal, both eyes and all related structures Conjunctivae: conjunctivae normal Neck Neck: normal visual inspection, full ROM, trachea midline, supple and nontender Resp Effort & Inspection: normal respiratory effort, able to speak in complete sentences and cough Quality of cough: dry (Mild) Auscultation: diminished lung sounds bilaterally in the lower lung gatica Cardio Rate: tachycardic (128) Rhythm: regular rhythm GI Inspection: normal to inspection Palpation: soft, not firm, no guarding, no pulsatile masses and tender (Diffuse upper quadrant and epigastric region) Auscultation: bowels sounds not normal Back/Spine/Pelvis Back: no CVA tenderness and No back tenderness Skin General skin exam: no rashes or lesions noted Neuro General: patient alert, patient awake, patient oriented x3, moves all extremities and no focal motor deficits Cognition: normal cognition Speech: speech normal Motor: muscle tone normal throughout Sensory Exam: no sensory deficits noted Extrem General: full ROM and capillary refill normal Upper/lower leg/hip images: 1. Contusion, tenderness, skin is intact. No deformity Psych Appearance: grossly normal Mental Status: mental status grossly normal Course Vital Signs Vital signs: Vital Signs Temperature 37.4 C 07/26/21 07:29 Pulse 123 H 07/26/21 07:29 Respiratory Rate 20 07/26/21 07:29 Blood Pressure 224/112 H 07/26/21 07:29 Pulse Oximetry 95 07/26/21 07:29 Temperature 37.4 C 07/26/21 07:29 Temperature Source Skin 07/26/21 07:29 Pulse 122 H 07/26/21 07:46 Pulse 116 H 07/26/21 08:00 Respiratory Rate 33 H 07/26/21 08:00 Respiratory Effort 07/26/21 07:44 Respiratory Depth Normal 07/26/21 07:44 Respiratory Pattern Normal 07/26/21 07:44 Blood Pressure 225/114 H 07/26/21 07:46 Blood Pressure Mean 140 07/26/21 07:46 Pulse Oximetry 98 07/26/21 08:00 Oxygen Delivery Method Room Air 07/26/21 07:29 Oxygen Flow Rate 0 07/26/21 07:29 Pain Level 7 07/26/21 07:29 PAWSS Have you Been Recently Intoxicated or Drunk Within the Last 30 days?: No Have you Ever Experienced Previous Episodes of Alcohol Withdrawal?: No Have you ever Experienced Withdrawal Seizures?: No Have you ever Experienced Delirium Tremens(DT)s?: Yes Have you ever undergone Alcohol Rehabilitation Treatment (i.e, inpt ot outpatient treatment programs)?: Yes Have you ever Experienced Blackouts?: No Have you ever Combined Alcohol with other Downers within the last 90 days?: No Have you ever Combined Alcohol with any other Substance of Abuse during the last 90 days?: No Positive Blood Alcohol level on Presentation? [PCS.BAL]: No Evidence of Increased Autonomic Activity (i.e. HR>120, tremor, sweating, agitation, nausea)?: No Result: 2
[2021-07-26] MEDS: LORazepam 2 MG/ML VIAL IVP (08:28)
[2021-07-26] MEDS: Ondansetron 4 MG/2 ML VIAL IVP ×3 (08:28→19:40)
[2021-07-26 08:36] LABS: Abs Immature Grans 0.03 10^3/uL (0.0-0.06); Absolute Basophil Count 0.02 10^3/uL (0.0-0.2); Absolute Monocyte Count 0.39 10^3/uL (0.1-0.8); Absolute Neutrophil Count 4.83 10^3/uL (1.2-6.7); Basophils % 0.4; HCT 36.8 % (36.0-46.0); HGB 12.3 g/dL (11.2-15.7); Immature Grans % 0.5; Lymphocytes % 5.4; MCH 34.6 pg (27.0-33.0); MCHC 33.4 % (32.0-36.0); MCV 103.4 fL (80-95); MPV 9.6 fL (8.0-11.0); Neutrophils % 86.7; Nucleated RBC 0 %; Platelet Count 216 10^3/uL (130-400); RBC 3.56 10^6/uL (3.93-5.22); RDW 15.4 % (11.7-14.6); RDW-SD 58.9 fL; WBC 5.57 10^3/uL (4.4-10.8)
[2021-07-26 08:37] LABS: Source Nasal/Nares
[2021-07-26] MEDS: Omnipaque 350 MG/ML 100 ML BTL IV ×3 (08:49→11:41)
[2021-07-26 09:06] LABS: Albumin 3.5 g/dL (3.4-5.0); Alkaline Phosphatase 222 U/L (46-116); BUN 12 mg/dL (7-18); Bilirubin, Total 3.9 mg/dL (0.2-1.0); CREATININE 0.8 mg/dL (0.55-1.02); Calcium 9.4 mg/dL (8.5-10.1); Chloride 98 mmol/L (98-107); Glucose 196 mg/dL (74-106); Magnesium 1.1 mg/dL (1.8-2.4); NT-proBNP 803 pg/mL (<300); Potassium 3.5 mmol/L (3.5-5.1); Sodium 137 mmol/L (136-145); Total Protein 7.3 g/dL (6.4-8.2)
[2021-07-26 09:07] LABS: ALT 83 U/L (14-59); AST 141 U/L (15-37); Anion Gap 15.4 mmol/L (3-11); CO2 23.6 mmol/L (21.0-32.0); ETHANOL BLOOD < 3.0 mg/dL (<10); Troponin I < 0.05 ng/mL (<0.06)
[2021-07-26] MEDS: MAGNESIUM SULFATE 8.12 MEQ, MULTIVITAMIN 10 ML, THIAMINE 100 MG, FOLIC ACID 1 MG in Nor... 168.867 MG IV (09:18)
[2021-07-26] MEDS: MAGNESIUM SULFATE 1 GM/100 ML BAG IVPB (09:19)
--- NOTE | 2021-07-26 09:25 | DI.VRAD_ITS ---
PROCEDURE INFORMATION: Exam: XR Left Hip Exam date and time: 07/26/2021 8:15 AM Age: 76 years old Clinical indication: Other: Fall/pain TECHNIQUE: Imaging protocol: XR Left hip. Views: 2 or 3 views hip with pelvis when performed. COMPARISON: CT ABDOMEN PELVIS W 05/29/2021 11:17 AM FINDINGS: Bones/joints: There is degenerative change in the hips and lower lumbar spine. There is no fracture. Soft tissues: Unremarkable. Organs: There is contrast material within the distal ureters bilaterally as well as within the urinary bladder. IMPRESSION: Degenerative changes, no fractures Dictated and Authenticated by: Teo June MD. Ordering:MOUNA Pascal MD
[2021-07-26 09:28] LABS: COVID-19 PCR Negative (Negative)
[2021-07-26 09:35] LABS: Lipase 99 U/L (73-393)
--- NOTE | 2021-07-26 09:42 | DI.VRAD_ITS ---
PROCEDURE INFORMATION: Exam: CTA Chest With Contrast Exam date and time: 07/26/2021 8:47 AM Age: 76 years old Clinical indication: Other: Sob/chest pressure, tachy 120's TECHNIQUE: Imaging protocol: Computed tomographic angiography of the chest with contrast. 3D rendering (Not supervised by radiologist): MIP and/or 3D reconstructed images were created by the technologist. Radiation optimization: All CT scans at this facility use at least one of these dose optimization techniques: automated exposure control; mA and/or kV adjustment per patient size (includes targeted exams where dose is matched to clinical indication); or iterative reconstruction. Contrast material: OMNIPAQUE 350; Contrast volume: 100 ml; Contrast route: INTRAVENOUS (IV); COMPARISON: CT CHEST PE ABD PELVIS W 11/02/2020 5:23 PM FINDINGS: Pulmonary arteries: There may be small emboli in the distal right lower lobe pulmonary artery. The exam is compromised by patient motion. Aorta: There is an ascending aortic aneurysm greatest transverse dimension 39 mm. The transverse aortic arch and descending thoracic aorta are normal Lungs: There is a spiculated mass in the right upper lobe measuring 11 x 11 mm, image a the 111 series 5. There is patchy increased interstitial markings in the right infrahilar region. There is atelectasis in the posterior CP angles bilaterally Pleural spaces: Unremarkable. No pneumothorax. No pleural effusion. Heart: There is cardiomegaly. Lymph nodes: Unremarkable. No enlarged lymph nodes. Liver: there is marked fatty infiltration of the liver. Kidneys and ureters: There are simple appearing right renal cysts the largest is in the lower pole, measuring 33 mm. Bones/joints: Unremarkable. No acute fracture. Soft tissues: Unremarkable. IMPRESSION: 1. Right upper lobe spiculated mass, soft tissue sampling warrants consideration. At a minimum, CT scan at 3-6 months recommended by Fleischner Society. 2. Question a minute nonocclusive distal right lower lobe pulmonary artery emboli. 3. Cardiomegaly. 4. Interstitial infiltrate right infrahilar region. 5. Bibasilar atelectasis. 6. Hepatic steatosis. 7. Renal cysts. Dictated and Authenticated by: Teo June MD. Ordering:MOUNA Pascal MD
--- NOTE | 2021-07-26 09:54 | DI.CT_ITS ---
Exam(s) CT ABDOMEN PELVIS W EXAM: CT ABDOMEN PELVIS W CLINICAL HISTORY: ABD pain, N/V, bili of 3.9. TECHNIQUE: Imaging Protocol: Axial computed tomography images with coronal and sagittal reformatted images were created and reviewed CONTRAST MATERIAL: Intravenous: Omnipaque 100cc Oral: None COMPARISON: CT T/L SPINE RECONS from 04/13/[address] CHEST/ABD/PEL W from 04/13/2020 CT T/L SPINE RECONS from 04/13/[address] CHEST/ABD/PEL W from 04/13/[address] ABDOMEN PELVIS W from 05/29/[address] ABDOMEN PELVIS W from 05/29/[address] CHEST PE CTA from 07/26/2021 FINDINGS: VISUALIZED LUNG BASES: No nodules nor pleural effusions evident. Multiple bilateral healed rib fract ures noted. ABDOMEN: There is no ascites. LIVER: Liver is again noted be hypodense implying steatosis. There are no discrete focal hepatic les ions identified. No dilatation of intrahepatic ducts. GALLBLADDER/BILIARY: No gallstones seen. CBD is not dilated. PANCREAS: No evidence of pancreatic mass nor dilatation of the pancreatic duct. SPLEEN: Spleen is not enlarged. No obvious intrasplenic lesions. Splenic and portal veins are paten t. ADRENALS: Prominent left adrenal gland unchanged. Right adrenal gland unremarkable. KIDNEYS:Benign-appearing cysts both kidneys again noted. Largest of these is located anteriorly in t he right kidney measuring 3.3 by 2.9 cm. No solid renal masses. No calculi. No hydronephrosis. No hydroureter. No significant findings in the urinary bladder. . ABDOMINAL AORTA: Abdominal aorta is not enlarged. LYMPH NODES:There is no retroperitoneal nor paraaortic adenopathy. ABDOMINAL WALL: No evidence of significant anterior abdominal wall nor inguinal hernia. GI: There is no evidence of bowel obstruction, free air, nor abscess. PELVIS: GI: No evidence of appendicitis.Redundant sigmoid but no evidence of diverticulitis. LYMPH NODES: Previously described presacral solid and fatty mass is again noted, unchanged in size fr om 05/29 21. Minimally increased in size from 04/13/2020 REPRODUCTIVE: Age-appropriate URINARY BLADDER: Thickened wall but no obvious masses OSSEOUS: Multiple healed rib fractures. Degenerative anterolisthesis L4 upon L5 again noted. IMPRESSION: 1. Compared to prior CT scans listed above there is again noted a soft tissue and fatty presacral mas s which exhibits minimal change from prior CT scans dating back to March 2020. No new additional ma sses. 2. Hepatic steatosis again noted. No discrete focal hepatic lesions. 3. Benign renal cysts again noted. No solid renal masses. No hydronephrosis. 4. Multiple bilateral healed rib fractures again noted. RADIATION DOSE DELIVERED: 872.87mGy.cm Total DLP DATA REPOSITORY: All CT scans at this facility are submitted to the National Radiology Data Registry (NRDR) Dose Index Registry (DIR) with the [employer] (A[employer]). RADIATION OPTIMIZATION: All CT scans at this facility use at least one of these dose optimization te chniques: automated exposure control; mA and/or kV adjustment per patient size (includes targeted exa ms where dose is matched to clinical indication); or iterative reconstruction.
[2021-07-26 10:21] LABS: Bilirubin Negative (Negative); Blood Negative (Negative); Clarity Clear (Clear); Glucose Negative (Negative); Ketones Trace mg/dL (Negative); Leukocyte Esterase Negative (Negative); Nitrite Negative (Negative); Specific Gravity 1.015 (1.005-1.025); pH 7.5 (5-8)
[2021-07-26 11:09] LABS: INR 1.1 (0.9-1.1); PTT Activated 24.1 sec (21.0-27.5); Prothrombin Time 11.3 sec (9.3-11.0)
[2021-07-26] MEDS: cefTRIAXone 1 GM/50 ML BAG IVPB (11:15)
[2021-07-26] MEDS: DOXYCYCLINE 100 MG in Normal Saline 100 ML IVPB (11:52)
--- NOTE | 2021-07-26 12:34 | DI.VRAD_ITS ---
PROCEDURE INFORMATION: Exam: CT Abdomen And Pelvis With Contrast Exam date and time: 07/26/2021 11:31 AM Age: 76 years old Clinical indication: Other: Abd pain, n/v, bili of 3.9 TECHNIQUE: Imaging protocol: Computed tomography of the abdomen and pelvis with contrast. Radiation optimization: All CT scans at this facility use at least one of these dose optimization techniques: automated exposure control; mA and/or kV adjustment per patient size (includes targeted exams where dose is matched to clinical indication); or iterative reconstruction. Contrast material: OMNIPAQUE 350; Contrast volume: 80 ml; Contrast route: INTRAVENOUS (IV); COMPARISON: CT ABDOMEN PELVIS W 05/29/2021 11:17 AM FINDINGS: Lungs: There is bibasilar atelectasis in the posterior CP angles of the lungs. Liver: There is marked fatty infiltration of the liver. Gallbladder and bile ducts: Normal. No calcified stones. No ductal dilation. Pancreas: Normal. No ductal dilation. Spleen: Normal. No splenomegaly. Adrenal glands: There is a 12 mm mass in the left adrenal. There is a left adrenal mass measuring 13 mm, unchanged. Kidneys and ureters: The multiple simple appearing renal cysts the largest is in the lower pole of the right kidney, unchanged. There is a hyperdense cyst extending exophytically from the interpolar region of the left kidney measuring 7 mm, unchanged from prior study. Stomach and bowel: Unremarkable. No obstruction. No mucosal thickening. Appendix: No evidence of appendicitis. Intraperitoneal space: Unremarkable. No free air. No significant fluid collection. Vasculature: Unremarkable. No abdominal aortic aneurysm. Lymph nodes: Unremarkable. No enlarged lymph nodes. Urinary bladder: Unremarkable as visualized. Reproductive: Unremarkable as visualized. Bones/joints: Unremarkable. No acute fracture. Soft tissues: There is a hiatus hernia. There are bilateral inguinal hernias with only fat within them. Other findings: again noted is a multilobulated soft tissue mass measuring 49 x 34 mm in the presacral space. The mass contains solid elements as well as a halo of surrounding fat. The this is unchanged from prior study dated 04/15/2021. IMPRESSION: 1. Left adrenal mass unchanged. 2. Hepatic steatosis unchanged. 3. Presacral, retroperitoneal mass with fat and soft tissue density components unchanged. 4. Bilateral inguinal hernias with fat within them, unchanged. Dictated and Authenticated by: Teo June MD. Ordering:MOUNA Pascal MD
[2021-07-26 12:37] LABS: Troponin I < 0.05 ng/mL (<0.06)
[2021-07-26] MEDS: Enoxaparin 40 MG/0.4 ML SYR SC (14:50)
[2021-07-26] MEDS: Normal Saline 500 ML 30 ML IVPB (14:50)
[2021-07-26] MEDS: MAGNESIUM SULFATE 4 GM/100 ML BAG IVPB (14:50)
[2021-07-26] MEDS: Normal Saline Flush 10 ML SYR IVP ×2 (16:10→19:39)
[2021-07-26] MEDS: Refresh PLUS Eye Drops 0.4ml OU ×2 (16:10→19:39)
--- NOTE | 2021-07-26 16:32 | W.PM.HP.N ---
Date of service: 07/26/21 Time of Service: 16:32 Assessment and Plan Assessment and plan (1) Abdominal pain: Start date: 07/26/21 Start time: 16:55 Status: Acute Assessment and plan: Onset x a couple of days. Will hydrate and slowly introduce food. carafate AC & HS Protonix BID (2) Nausea & vomiting: Start date: 07/26/21 Start time: 16:57 Status: Acute Assessment and plan: x couple days, likely gastritis from alcohol intoxication as above (3) Pneumonia: Start date: 07/26/21 Start time: 17:09 Status: Acute Assessment and plan: With no leukocytosis, fever or productive cough will hold off on treatment at this time IS/acapella (4) Alcohol intoxication: Start date: 07/26/21 Start time: 17:09 Status: Acute Assessment and plan: States last drink was thanksgiving. She has not had any w/d while hospitalized in the past. Banana bag. continue to monitor (5) Frequent falls: Start date: 07/26/21 Start time: 17:10 Status: Chronic Assessment and plan: PT consulted. (6) Dehydration: Start date: 07/26/21 Start time: 17:10 Status: Acute Assessment and plan: IV hydration, monitor labs (7) DVT prophylaxis: Start date: 07/26/21 Start time: 17:10 Status: Acute Assessment and plan: enoxaparin History of Present Illness History of Present Illness Chief Complaint: N/V, hypomagnesium Narrative: 76 y.o female well known to use admitted from [facility] ED after presented for abd pain, n/v, cough, chest pressure onset day before admission. Patient is alcohol dependent. Labs in ED significant for mag level 1.1, BNP 803, elevated liver enzymes, anion gap 15.4, lactate 2.0. UA negative for nitrates or leuk est., she denies diarrhea. Covid 19 negative. Hip xray negative, CT of chest PE, ABD and PELVIS question question of minute nonocclusive distal right LL pulmonary pulmonary emboli (will cover with enoxaparin until known for sure by our radiologist). Cardiomegaly. Interstitial infiltrate right infrahilar region. Bibasilar atelectasis. Hepatic steatosis. Renal cysts. Asked to be admitted to hospitalists for further admission. Will place on PE treatment with appropriate enoxaparain dosing. Banana bag. Telemetry repeat labs in am. Palliative care consult. Patient would be appropriate for hospice especially if she requires dosing for PE as she is high fall risk and alcoholic. She does not tend to w/d from alcohol. At this time will hold off on treating her with CAP as clinically she is not showing signs, afebrile, no wbc, nonproductive cough. Will treat if she exhibits signs. IS and acapella. Replete mag level, recheck labs in am. Consult palliative and PT to work with patient. She is a candidate for hospice at this time if she does have a PE this should be seriously considered given her high fall risk. Will hydrated with banana bag. Review of Systems All systems reviewed & are unremarkable except as noted in HPI and below [facility] Active Problem List Pneumonia (Acute) Nausea & vomiting (Acute) Abdominal pain (Acute) Depression with suicidal ideation (Acute) Alcohol intoxication (Acute) Alcohol abuse (Acute) Diarrhea (Acute) Epigastric pain (Acute) Nausea and vomiting (Acute) Dehydration (Acute) Hypokalemia (Acute) Discharge planning issues (Acute) C. difficile colitis (Acute) Palliative care patient (Acute) Difficult intravenous access (Acute) Pancreatitis (Chronic) PTSD (post-traumatic stress disorder) (Acute) Anemia (Chronic) Depression (Chronic) Foot pain, right (Acute) T12 compression fracture (Acute) Presacral mass (Chronic) Deviated nasal septum (Acute) Frequent falls (Chronic) Head injury (Acute) Transaminitis (Acute) Ambulatory dysfunction (Chronic) Shoulder pain, right (Chronic) DVT prophylaxis (Acute) Suicidal ideation (Acute) Dry eye (Acute) Pruritus (Acute) Dystrophic nail (Acute) AMBER (acute kidney injury) (Acute) Iron deficiency anemia (Chronic) Alcohol abuse (Chronic) Hypomagnesemia (Chronic) Discharge planning issues (Acute) UTI (urinary tract infection) (Acute) Fall (Acute) Atelectasis of left lung (Chronic) Advance directive on file (Acute) Nodule of upper lobe of right lung (Acute ~09/13/18) Cataract (Chronic 11/07/15) Hypertension (Chronic) Hyperlipidemia (Chronic) Back pain, chronic (Chronic) Depression (Chronic) Osteopenia (Chronic) Medical History Acute alcoholism Acute UTI Adjustment disorder with depressed mood AMBER (acute kidney injury) Alcohol intoxication Alcohol intoxication Alcoholic gastritis without bleeding Alcoholic ketosis Allergic rhinitis Anemia Blunt head trauma Blunt trauma of multiple sites of trunk Calcific tendinitis of left shoulder CAP (community acquired pneumonia) Cervical radicular pain neck pain and DJD [facility] Cervical strain 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) pls refrain from alcohol Chronic alcoholism she will not stop drinking unless she checks with me, so that we can help her avert withdrawal I do not think she is capable on her own--she would need placement to achieve required goal of 3 months of sobriety Chronic diarrhea Closed displaced fracture of proximal phalanx of right index finger with routine healing (06/03/17) Closed right humeral fracture Contusion of left little finger Corneal ulcer, right (~08/23/18) 08/23/18; [facility]- Dehydration Elev transaminase/LDH due to alcohol Epigastric abdominal pain Facial fracture due to fall Facial laceration Fall as cause of accidental injury at home as place of occurrence Fall at home Fracture of humerus, left, closed Genital herpes simplex recurrent gential; suppressive Valtrex GERD (gastroesophageal reflux disease) GI bleed (12/20/16) Head contusion Headache History of alcohol abuse Humerus fracture (09/12/19) Right Hypertension Hypokalemia Hypokalemia Hypomagnesemia Incidental lung nodule, greater than or equal to 8mm 1cm, spiculated, stable for many years, recommend f/u in 6 mo Intractable vomiting Leukopenia Macrocytosis (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 Multiple contusions Multiple fractures of ribs Multiple rib fractures 03/11/19 [facility] Non-cardiac chest pain (09/21/16) [facility] 09/21/16 NEGATIVE MP Osteoarthritis Palliative care patient (03/21/17) Pancreatitis, alcoholic, acute Peripheral edema Photophobia of right eye Pleural effusion on left 03/11/19 [facility] Pneumonia Presacral mass (~09/15/18) 09/15/18 [facility] Rash Rib pain on right side Right rib fracture Sacral mass Sciatica right, epidural injuections [facility] Suicidal ideation Tendinitis of left rotator cuff Tubular adenoma of colon (01/28/17) Urinary incontinence 01/24/13 urethral suspension and sling at [facility] (bladder suspension 1991) UTI (urinary tract infection) UTI (urinary tract infection) 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 Bladder repair. Ligation of fallopian tube Repair bladder injury, simple Family History Mother No problems noted. Father , DROWNED at age 50. No problems noted. Sister Personal history of malignant neoplasm MELANOMA Sister No problems noted. Grandfather Personal history of malignant neoplasm STOMACH Grandfather Personal history of malignant neoplasm PROSTATE Grandmother Heart disease RI Acute ill-defined cerebrovascular disease Grandmother Personal history of malignant neoplasm UTERINE Aunt , RI Heart disease RI Aunt , RI Heart disease Brother No problems noted. Social History Smoking/Tobacco Use Status: Former Tobacco Use Quit Date: 08/05/20 Smoking risk assessment performed?: Yes Alcohol Intake: current Alcohol Intake frequency: 3 or more drinks per day Alcohol type: hard liquor Drug use: Never Substance use type: does not use Current gender identity: female Do you feel safe at home: Yes Do you feel safe in your relationship?: Yes Additional Social history: Pt has been binge drinking since 4am Meds Allergies and Home Medications Allergies Allergy/AdvReac Type Severity Reaction Status Date / Time Penicillins Allergy Mild Rash Verified 07/26/21 07:43 ramipril Allergy Unknown ITCHING Verified 07/26/21 07:43 meperidine [From Demerol] AdvReac Severe Nausea Verified 07/26/21 07:43 bupropion AdvReac Mild GI upset Verified 07/26/21 07:43 AMBER Inhibitors AdvReac Unknown COUGH Verified 07/26/21 07:43 alendronate sodium AdvReac Unknown GI Distress Verified 07/26/21 07:43 clarithromycin AdvReac Unknown intolerant Verified 07/26/21 07:43 paroxetine AdvReac Unknown Diarrhea Verified 07/26/21 07:43 Home Medications Medication Instructions Recorded Confirmed Type Refresh Plus 1 drp OU Q4H WHILE AWAKE #30 each 06/20/19 07/26/21 Rx food supplemt, lactose-reduced 414 ml PO DAILY #35699 ml 08/24/19 07/26/21 Rx lifitegrast 5 % eye drops in a 1 drp OPHTHALMIC (EYE) BID 08/05/20 07/26/21 History dropperette folic acid 1 mg tablet 1 mg PO DAILY #90 tab 09/05/20 07/26/21 Rx multivitamin 1 tab PO DAILY #90 tab 09/05/20 07/26/21 Rx thiamine HCl (vitamin B1) 100 mg 100 mg PO DAILY #90 tab 09/05/20 07/26/21 Rx tablet ondansetron 4 mg disintegrating 4 mg PO Q8H PRN #20 tab 04/28/21 07/26/21 Rx tablet fluoxetine 10 mg tablet 10 mg PO DAILY #30 tab 06/10/21 07/26/21 Rx sucralfate 1 gram tablet 1 g PO BID #60 tab 06/11/21 07/26/21 Rx Exam Const General: cooperative, comfortable and no acute distress Nutritional Appearance: obese Orientation: alert, awake and oriented x3 Eyes Eyelids: eyelids normal Pupils: PERRL EOM: EOM intact bilaterally Neck Neck: normal visual inspection and no JVD Lymphatic: no lymphadenopathy noted Resp Effort & Inspection: normal respiratory effort Auscultation: clear to auscultation bilaterally Cardio Jugular venous pressure: no JVD Rhythm: regular rhythm Heart Sounds: S1 normal GI Auscultation: normal bowel sounds General: No CVA tenderness and deferred Skin General skin exam: no rashes or lesions noted Neuro General: patient alert, patient awake and patient oriented x3 Cognition: normal cognition Speech: speech normal Gait: normal gait Extrem General: normal to inspection, full ROM and no clubbing, cyanosis or edema Results Labs Result diagrams: 07/26/21 07:41 07/26/21 07:41 Labs: Laboratory Results - last 24 hr 07/26/21 07/26/21 07/26/21 07:41 07:41 07:41 WBC 5.57 RBC 3.56 L Hgb 12.3 Hct 36.8 MCV 103.4 H MCH 34.6 H MCHC 33.4 RDW 15.4 H Plt Count 216 MPV 9.6 Immature Gran % 0.5 Neutrophils % 86.7 Lymphocytes % 5.4 Monocytes % 7.0 Eosinophils % 0.0 Basophils % 0.4 Nucleated RBC % 0 Absolute Neutrophils 4.83 Absolute Lymphocytes 0.30 L Absolute Monocytes 0.39 Absolute Eosinophils 0.00 Absolute Basophils 0.02 PT INR APTT VBG Lactate Sodium 137 Potassium 3.5 Chloride 98 Carbon Dioxide 23.6 Anion Gap 15.4 H BUN 12 Creatinine 0.8 Estimated GFR/1.73 m2 >= 60.00 Glucose 196 H Calcium 9.4 Magnesium 1.1 L Total Bilirubin 3.9 H AST 141 H ALT 83 H Alkaline Phosphatase 222 H Troponin I < 0.05 NT-Pro-B Natriuret Pep 803 H Total Protein 7.3 Albumin 3.5 Lipase 99 Urine Color Urine Clarity Urine pH Ur Specific [place] Urine Protein Urine Ketones Urine Blood Urine Nitrite Urine Bilirubin Urine Urobilinogen Ur Leukocyte Esterase Urine Glucose Ethyl Alcohol COVID-19 Source SARS-CoV-2 (PCR) 07/26/21 07/26/21 07/26/21 07:41 08:25 10:10 WBC RBC Hgb Hct MCV MCH MCHC RDW Plt Count MPV Immature Gran % Neutrophils % Lymphocytes % Monocytes % Eosinophils % Basophils % Nucleated RBC % Absolute Neutrophils Absolute Lymphocytes Absolute Monocytes Absolute Eosinophils Absolute Basophils PT INR APTT VBG Lactate Sodium Potassium Chloride Carbon Dioxide Anion Gap BUN Creatinine Estimated GFR/1.73 m2 Glucose Calcium Magnesium Total Bilirubin AST ALT Alkaline Phosphatase Troponin I NT-Pro-B Natriuret Pep Total Protein Albumin Lipase Urine Color Yellow Urine Clarity Clear Urine pH 7.5 Ur Specific [place] 1.015 Urine Protein Negative Urine Ketones Trace H Urine Blood Negative Urine Nitrite Negative Urine Bilirubin Negative Urine Urobilinogen 1.0 H Ur Leukocyte Esterase Negative Urine Glucose Negative Ethyl Alcohol < 3.0 COVID-19 Source Nasal/Nares SARS-CoV-2 (PCR) Negative 07/26/21 07/26/21 07/26/21 10:45 10:45 10:45 WBC RBC Hgb Hct MCV MCH MCHC RDW Plt Count MPV Immature Gran % Neutrophils % Lymphocytes % Monocytes % Eosinophils % Basophils % Nucleated RBC % Absolute Neutrophils Absolute Lymphocytes Absolute Monocytes Absolute Eosinophils Absolute Basophils PT 11.3 H INR 1.1 APTT 24.1 VBG Lactate 2.0 H Sodium Potassium Chloride Carbon Dioxide Anion Gap BUN Creatinine Estimated GFR/1.73 m2 Glucose Calcium Magnesium Total Bilirubin AST ALT Alkaline Phosphatase Troponin I < 0.05 NT-Pro-B Natriuret Pep Total Protein Albumin Lipase Urine Color Urine Clarity Urine pH Ur Specific [place] Urine Protein Urine Ketones Urine Blood Urine Nitrite Urine Bilirubin Urine Urobilinogen Ur Leukocyte Esterase Urine Glucose Ethyl Alcohol COVID-19 Source SARS-CoV-2 (PCR) Last Vital Signs Temp 37.5 C 07/26/21 14:01 Pulse 104 H 07/26/21 14:27 Resp 15 07/26/21 14:01 BP 154/75 H 07/26/21 14:01 Pulse Ox 100 07/26/21 14:01 PAWSS Have you Been Recently Intoxicated or Drunk Within the Last 30 days?: Yes Have you Ever Experienced Previous Episodes of Alcohol Withdrawal?: No Have you ever Experienced Withdrawal Seizures?: No Have you ever Experienced Delirium Tremens(DT)s?: No Have you ever undergone Alcohol Rehabilitation Treatment (i.e, inpt ot outpatient treatment programs)?: Yes Have you ever Experienced Blackouts?: No Have you ever Combined Alcohol with other Downers within the last 90 days?: No Have you ever Combined Alcohol with any other Substance of Abuse during the last 90 days?: No Positive Blood Alcohol level on Presentation? [PCS.BAL]: No Evidence of Increased Autonomic Activity (i.e. HR>120, tremor, sweating, agitation, nausea)?: No Result: 2
[2021-07-26] MEDS: Docusate Sodium 100 MG CAP PO (19:41)
[2021-07-26] MEDS: Pantoprazole 40 MG TABCR PO (19:41)
[2021-07-26] MEDS: Sucralfate 1 GM TAB PO (19:42)
[2021-07-26] MEDS: LORazepam 0.5 MG TAB PO (19:42)
[2021-07-27 03:31] VITALS: BP 145/75; PULSE 97; RESP 18; TEMP 36.6; O2SAT 97
[2021-07-27] MEDS: Normal Saline Flush 10 ML SYR IVP (04:39)
[2021-07-27] MEDS: Ondansetron 4 MG/2 ML VIAL IVP ×2 (04:39→08:26)
[2021-07-27] MEDS: LORazepam 0.5 MG TAB PO ×2 (04:40→12:33)
[2021-07-27 06:54] LABS: Abs Immature Grans 0.03 10^3/uL (0.0-0.06); Absolute Basophil Count 0.02 10^3/uL (0.0-0.2); Absolute Lymphocyte Count 0.61 10^3/uL (1.2-3.4); Absolute Monocyte Count 0.35 10^3/uL (0.1-0.8); Absolute Neutrophil Count 1.97 10^3/uL (1.2-6.7); Basophils % 0.7; HCT 29.6 % (36.0-46.0); HGB 9.5 g/dL (11.2-15.7); Lymphocytes % 20.5; MCH 33.3 pg (27.0-33.0); MCHC 32.1 % (32.0-36.0); MCV 103.9 fL (80-95); MPV 10.1 fL (8.0-11.0); Monocytes % 11.7; Neutrophils % 66.1; Nucleated RBC 0 %; Platelet Count 119 10^3/uL (130-400); RBC 2.85 10^6/uL (3.93-5.22); RDW 15.9 % (11.7-14.6); RDW-SD 61.9 fL; WBC 2.98 10^3/uL (4.4-10.8)
[2021-07-27 07:05] VITALS: PULSE 86
[2021-07-27 07:17] LABS: ALT 52 U/L (14-59); AST 75 U/L (15-37); Albumin 2.7 g/dL (3.4-5.0); Alkaline Phosphatase 154 U/L (46-116); Anion Gap 7.6 mmol/L (3-11); BUN 10 mg/dL (7-18); Bilirubin, Total 2.1 mg/dL (0.2-1.0); CO2 27.4 mmol/L (21.0-32.0); CREATININE 0.8 mg/dL (0.55-1.02); Calcium 8.6 mg/dL (8.5-10.1); Chloride 102 mmol/L (98-107); Glucose 145 mg/dL (74-106); Magnesium 2.5 mg/dL (1.8-2.4); Potassium 3.7 mmol/L (3.5-5.1); Sodium 137 mmol/L (136-145); Total Protein 5.6 g/dL (6.4-8.2)
[2021-07-27 08:00] VITALS: BP 160/90; PULSE 91; RESP 20; TEMP 36.4; O2SAT 96
--- NOTE | 2021-07-27 08:15 | PCNE_ITS ---
Date of service: 07/27/21 Time of Service: 08:15 History of Present Illness Narrative: From H and P: History of Present Illness Chief Complaint: N/V, hypomagnesium Narrative: 76 y.o female well known to use admitted from [facility] ED after presented for abd pain, n/v, cough, chest pressure onset day before admission. Patient is alcohol dependent. Labs in ED significant for mag level 1.1, BNP 803, elevated liver enzymes, anion gap 15.4, lactate 2.0. UA negative for nitrates or leuk est., she denies diarrhea. Covid 19 negative. Hip xray negative, CT of chest PE, ABD and PELVIS question question of minute nonocclusive distal right LL pulmonary pulmonary emboli (will cover with enoxaparin until known for sure by our radiologist). Cardiomegaly. Interstitial infiltrate right infrahilar region. Bibasilar atelectasis. Hepatic steatosis. Renal cysts. Asked to be admitted to hospitalists for further admission. Will place on PE treatment with appropriate enoxaparain dosing. Banana bag. Telemetry repeat labs in am. Palliative care consult. Patient would be appropriate for hospice especially if she requires dosing for PE as she is high fall risk and alcoholic. She does not tend to w/d from alcohol. At this time will hold off on treating her with CAP as clinically she is not showing signs, afebrile, no wbc, nonproductive cough. Will treat if she exhibits signs. IS and acapella. Replete mag level, recheck labs in am. Consult palliative and PT to work with patient. She is a candidate for hospice at this time if she does have a PE this should be seriously considered given her high fall risk. Will hydrated with banana bag Interim Hx: Julia is a 76-year-old woman well-known to me. I think following her for several years due to her frailty and alcoholism. I have also cared for her when she was a resident at the [facility]. Unfortunately she continues to drink falls often, and gets more abdominal pain and most recently chest pain. She says she has chest pain even just lying there. She is extremely short of breath when she tries to do anything. She has a large bruise on her left hip when she fell out of bed. She states that it was quite sore. She has had x-rays on admission. There is a question of a pulmonary emboli and possible infiltrate. She is adamant that she wants to go home to be with her animals. She is not willing to give up their part of her life. She does have someone who comes in on a regular basis, but Leticia has not happy with her. Her son helps to arrange care for her. She states that she did not see him over the vacation Consults Consult date: 07/27/21 Requesting physician: Pat Navarro Assessment and Plan Assessment and plan (1) Pneumonia: Status: Acute (2) Nausea & vomiting: Status: Acute (3) Alcohol abuse: Status: Acute (4) Anemia: Status: Chronic (5) Presacral mass: Status: Chronic (6) Pulmonary mass: Status: Acute (7) Palliative care patient: Status: Acute Assessment and plan: Leticia is a 76-year-old woman with alcoholism well- known to me. She again states that she wants to be going home and be with her animals although she has shown repeatedly that she cannot care for herself even with the additional help Pneumonia she is receiving ceftriaxone and doxycycline She is receiving IV hydration Anemia we will need to monitor she has dropped about 2 units since her last admission She does have a presacral mass which has not been worked up and now has a spiculated mass in her lungs. This is very suspicious for malignancy. I spoke briefly with Leticia this morning but will return this evening and speak to her. I do agree with Kavita Sprague NP that hospice might be a good alternative given her burden of disease, and reluctance to make changes Review of Systems Narrative: She is very tired. She does have abdominal pain and chest pain. She feels short of breath. She does have left hip pain. She has been moving her bowels. No urinary complaints [facility] Active Problem List Pneumonia (Acute) Nausea & vomiting (Acute) Abdominal pain (Acute) Depression with suicidal ideation (Acute) Alcohol intoxication (Acute) Alcohol abuse (Acute) Diarrhea (Acute) Epigastric pain (Acute) Nausea and vomiting (Acute) Dehydration (Acute) Hypokalemia (Acute) Discharge planning issues (Acute) C. difficile colitis (Acute) Palliative care patient (Acute) Difficult intravenous access (Acute) Pancreatitis (Chronic) PTSD (post-traumatic stress disorder) (Acute) Anemia (Chronic) Depression (Chronic) Foot pain, right (Acute) T12 compression fracture (Acute) Presacral mass (Chronic) Deviated nasal septum (Acute) Frequent falls (Chronic) Head injury (Acute) Transaminitis (Acute) Ambulatory dysfunction (Chronic) Shoulder pain, right (Chronic) DVT prophylaxis (Acute) Suicidal ideation (Acute) Dry eye (Acute) Pruritus (Acute) Dystrophic nail (Acute) AMBER (acute kidney injury) (Acute) Iron deficiency anemia (Chronic) Alcohol abuse (Chronic) Hypomagnesemia (Chronic) Discharge planning issues (Acute) UTI (urinary tract infection) (Acute) Fall (Acute) Atelectasis of left lung (Chronic) Advance directive on file (Acute) Nodule of upper lobe of right lung (Acute ~09/13/18) Cataract (Chronic 11/07/15) Hypertension (Chronic) Hyperlipidemia (Chronic) Back pain, chronic (Chronic) Depression (Chronic) Osteopenia (Chronic) Medical History Acute alcoholism Acute UTI Adjustment disorder with depressed mood AMBER (acute kidney injury) Alcohol intoxication Alcohol intoxication Alcoholic gastritis without bleeding Alcoholic ketosis Allergic rhinitis Anemia Blunt head trauma Blunt trauma of multiple sites of trunk Calcific tendinitis of left shoulder CAP (community acquired pneumonia) Cervical radicular pain neck pain and DJD [facility] Cervical strain 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) pls refrain from alcohol Chronic alcoholism she will not stop drinking unless she checks with me, so that we can help her avert withdrawal I do not think she is capable on her own--she would need placement to achieve required goal of 3 months of sobriety Chronic diarrhea Closed displaced fracture of proximal phalanx of right index finger with routine healing (06/03/17) Closed right humeral fracture Contusion of left little finger Corneal ulcer, right (~08/23/18) 08/23/18; [facility] Dehydration Elev transaminase/LDH due to alcohol Epigastric abdominal pain Facial fracture due to fall Facial laceration Fall as cause of accidental injury at home as place of occurrence Fall at home Fracture of humerus, left, closed Genital herpes simplex recurrent gential; suppressive Valtrex GERD (gastroesophageal reflux disease) GI bleed (12/20/16) Head contusion Headache History of alcohol abuse Humerus fracture (09/12/19) Right Hypertension Hypokalemia Hypokalemia Hypomagnesemia Incidental lung nodule, greater than or equal to 8mm 1cm, spiculated, stable for many years, recommend f/u in 6 mo Intractable vomiting Leukopenia Macrocytosis (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 Multiple contusions Multiple fractures of ribs Multiple rib fractures 03/11/19 [facility] Non-cardiac chest pain (09/21/16) [facility] 09/21/16 NEGATIVE MP Osteoarthritis Palliative care patient (03/21/17) Pancreatitis, alcoholic, acute Peripheral edema Photophobia of right eye Pleural effusion on left 03/11/19 [facility] Pneumonia Presacral mass (~09/15/18) 09/15/18 [facility] Rash Rib pain on right side Right rib fracture Sacral mass Sciatica right, epidural injuections [facility] Suicidal ideation Tendinitis of left rotator cuff Tubular adenoma of colon (01/28/17) Urinary incontinence 01/24/13 urethral suspension and sling at [facility] (bladder suspension 1991) UTI (urinary tract infection) UTI (urinary tract infection) 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 Bladder repair. Ligation of fallopian tube Repair bladder injury, simple Family History Mother No problems noted. Father , DROWNED at age 50. No problems noted. Sister Personal history of malignant neoplasm MELANOMA Sister No problems noted. Grandfather Personal history of malignant neoplasm STOMACH Grandfather Personal history of malignant neoplasm PROSTATE Grandmother Heart disease MS Acute ill-defined cerebrovascular disease Grandmother Personal history of malignant neoplasm UTERINE Aunt , MS Heart disease MS Aunt , MS Heart disease Brother No problems noted. Social History Smoking/Tobacco Use Status: Former Tobacco Use Quit Date: 08/05/20 Smoking risk assessment performed?: Yes Alcohol Intake: current Alcohol Intake frequency: 3 or more drinks per day Alcohol type: hard liquor Drug use: Never Substance use type: does not use Current gender identity: female Do you feel safe at home: Yes Do you feel safe in your relationship?: Yes Additional Social history: Pt has been binge drinking since 4am Exam Narrative Exam Narrative: Leticia is disheveled, lying in bed. She answers my questions completely. She is cooperative. Her heart is regular. Her lungs she has good airflow throughout and is cooperative with the exam. Her abdomen has good bowel sounds but she does have tenderness throughout. Her left hip has a large bruise about 20 cm x 10 cm. It looks to be a few days old. She can move her feet and toes easily. Results Last Vital Signs Temp 97.9 F 07/27/21 03:31 Pulse 97 H 07/27/21 03:31 Resp 18 07/27/21 03:31 BP 145/75 H 07/27/21 03:31 Pulse Ox 97 07/27/21 03:[address] MPRESSION: 1. No evidence of acute pulmonary emboli. No evidence of pulmonary infarction.No pleural effusions. 2. However, there is a spiculated 11 millimeter nodule in the right upper lobe which is suspicious and will require appropriate follow-up to rule out malignancy. There is no obvious intrathoracic adenopathy. 3. Ascending thoracic aortic aneurysm maximum diameter 3.9 cm. No dissection. Abd.pelvis CT MPRESSION: 1. Compared to prior CT scans listed above there is again noted a soft tissue and fatty presacral mass which exhibits minimal change from prior CT scans dating back to March 2020. No new additional masses. 2. Hepatic steatosis again noted. No discrete focal hepatic lesions. 3. Benign renal cysts again noted. No solid renal masses. No hydronephrosis. 4. Multiple bilateral healed rib fractures again noted. Labs Result diagrams: 07/27/21 06:09 07/27/21 06:09 Labs: Laboratory Results - last 24 hr 07/26/21 07/26/21 07/26/21 07:41 07:41 07:41 WBC 5.57 RBC 3.56 L Hgb 12.3 Hct 36.8 MCV 103.4 H MCH 34.6 H MCHC 33.4 RDW 15.4 H Plt Count 216 MPV 9.6 Immature Gran % 0.5 Neutrophils % 86.7 Lymphocytes % 5.4 Monocytes % 7.0 Eosinophils % 0.0 Basophils % 0.4 Nucleated RBC % 0 Absolute Neutrophils 4.83 Absolute Lymphocytes 0.30 L Absolute Monocytes 0.39 Absolute Eosinophils 0.00 Absolute Basophils 0.02 PT INR APTT VBG Lactate Sodium 137 Potassium 3.5 Chloride 98 Carbon Dioxide 23.6 Anion Gap 15.4 H BUN 12 Creatinine 0.8 Estimated GFR/1.73 m2 >= 60.00 Glucose 196 H Calcium 9.4 Magnesium 1.1 L Total Bilirubin 3.9 H AST 141 H ALT 83 H Alkaline Phosphatase 222 H Troponin I < 0.05 NT-Pro-B Natriuret Pep 803 H Total Protein 7.3 Albumin 3.5 Lipase 99 Urine Color Urine Clarity Urine pH Ur Specific Hanna Urine Protein Urine Ketones Urine Blood Urine Nitrite Urine Bilirubin Urine Urobilinogen Ur Leukocyte Esterase Urine Glucose Ethyl Alcohol COVID-19 Source SARS-CoV-2 (PCR) 07/26/21 07/26/21 07/26/21 07:41 08:25 10:10 WBC RBC Hgb Hct MCV MCH MCHC RDW Plt Count MPV Immature Gran % Neutrophils % Lymphocytes % Monocytes % Eosinophils % Basophils % Nucleated RBC % Absolute Neutrophils Absolute Lymphocytes Absolute Monocytes Absolute Eosinophils Absolute Basophils PT INR APTT VBG Lactate Sodium Potassium Chloride Carbon Dioxide Anion Gap BUN Creatinine Estimated GFR/1.73 m2 Glucose Calcium Magnesium Total Bilirubin AST ALT Alkaline Phosphatase Troponin I NT-Pro-B Natriuret Pep Total Protein Albumin Lipase Urine Color Yellow Urine Clarity Clear Urine pH 7.5 Ur Specific Hanna 1.015 Urine Protein Negative Urine Ketones Trace H Urine Blood Negative Urine Nitrite Negative Urine Bilirubin Negative Urine Urobilinogen 1.0 H Ur Leukocyte Esterase Negative Urine Glucose Negative Ethyl Alcohol < 3.0 COVID-19 Source Nasal/Nares SARS-CoV-2 (PCR) Negative 07/26/21 07/26/21 07/26/21 10:45 10:45 10:45 WBC RBC Hgb Hct MCV MCH MCHC RDW Plt Count MPV Immature Gran % Neutrophils % Lymphocytes % Monocytes % Eosinophils % Basophils % Nucleated RBC % Absolute Neutrophils Absolute Lymphocytes Absolute Monocytes Absolute Eosinophils Absolute Basophils PT 11.3 H INR 1.1 APTT 24.1 VBG Lactate 2.0 H Sodium Potassium Chloride Carbon Dioxide Anion Gap BUN Creatinine Estimated GFR/1.73 m2 Glucose Calcium Magnesium Total Bilirubin AST ALT Alkaline Phosphatase Troponin I < 0.05 NT-Pro-B Natriuret Pep Total Protein Albumin Lipase Urine Color Urine Clarity Urine pH Ur Specific Hanna Urine Protein Urine Ketones Urine Blood Urine Nitrite Urine Bilirubin Urine Urobilinogen Ur Leukocyte Esterase Urine Glucose Ethyl Alcohol COVID-19 Source SARS-CoV-2 (PCR) 07/27/21 07/27/21 06:09 06:09 WBC 2.98 L D RBC 2.85 L Hgb 9.5 L D Hct 29.6 L MCV 103.9 H MCH 33.3 H MCHC 32.1 RDW 15.9 H Plt Count 119 L MPV 10.1 Immature Gran % 1.0 Neutrophils % 66.1 Lymphocytes % 20.5 Monocytes % 11.7 Eosinophils % 0.0 Basophils % 0.7 Nucleated RBC % 0 Absolute Neutrophils 1.97 Absolute Lymphocytes 0.61 L Absolute Monocytes 0.35 Absolute Eosinophils 0.00 Absolute Basophils 0.02 PT INR APTT VBG Lactate Sodium 137 Potassium 3.7 Chloride 102 Carbon Dioxide 27.4 Anion Gap 7.6 BUN 10 Creatinine 0.8 Estimated GFR/1.73 m2 >= 60.00 Glucose 145 H Calcium 8.6 Magnesium 2.5 H Total Bilirubin 2.1 H AST 75 H ALT 52 Alkaline Phosphatase 154 H Troponin I NT-Pro-B Natriuret Pep Total Protein 5.6 L Albumin 2.7 L Lipase Urine Color Urine Clarity Urine pH Ur Specific Hanna Urine Protein Urine Ketones Urine Blood Urine Nitrite Urine Bilirubin Urine Urobilinogen Ur Leukocyte Esterase Urine Glucose Ethyl Alcohol COVID-19 Source SARS-CoV-2 (PCR)
[2021-07-27] MEDS: Multivitamin TAB 1 TAB PO (08:30)
[2021-07-27] MEDS: Folic Acid 1 MG TAB PO (08:30)
[2021-07-27] MEDS: Pantoprazole 40 MG TABCR PO (08:30)
[2021-07-27] MEDS: FLUoxetine 10 MG TAB PO (08:30)
[2021-07-27] MEDS: THIAMINE 100 MG in Normal Saline 100 ML 200 MG IVPB (08:30)
[2021-07-27] MEDS: Sucralfate 1 GM TAB PO (08:30)
[2021-07-27] MEDS: Docusate Sodium 100 MG CAP PO (08:37)
[2021-07-27] MEDS: Polyethylene Glycol 3350 17 GM PACKET PO (08:37)
[2021-07-27] MEDS: Acetaminophen 325 MG TAB PO (08:42)
--- NOTE | 2021-07-27 12:36 | IN_ITS ---
Date of service: 07/27/21 Time of Service: 12:36 PT Notes Visit Reasons: PNEUMONIA,?PE Inpatient Physical Therapy Evaluation Date: 07/27/2021 Referring Doctor: Pat Navarro NP PT Orders: PT CONSULT:Eval/Treat. Precautions: Standard. Frequent falls. Activity as tolerated. Patient Profile/Admitting Diagnosis: Leticia is a 75-year-old female who presented to the ED on 07/26/2021 due to abdominal pain, nausea, vomiting, cough, and chest pressure. Patient is diagnosed with abdominal pain, nausea and vomiting from recent intoxication, pneumonia, EtOH intoxication, frequent falls, and dehydration. PMHX: Medical History Acute alcoholism Acute UTI Adjustment disorder with depressed mood AMBER (acute kidney injury) Alcohol abuse Alcohol intoxication Alcohol intoxication Alcoholic gastritis without bleeding Alcoholic ketosis Allergic rhinitis Anemia Back pain, chronic Blunt head trauma Blunt trauma of multiple sites of trunk Calcific tendinitis of left shoulder CAP (community acquired pneumonia) Cataract (11/07/15) Cervical radicular pain neck pain and DJD [facility] Cervical strain 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) pls refrain from alcohol Chronic alcoholism she will not stop drinking unless she checks with me, so that we can help her avert withdrawal I do not think she is capable on her own--she would need placement to achieve required goal of 3 months of sobriety Chronic diarrhea Closed displaced fracture of proximal phalanx of right index finger with routine healing (06/03/17) Closed right humeral fracture Contusion of left little finger Corneal ulcer, right (~08/23/18) 08/23/18; [facility] Dehydration Depression Diarrhea Discharge planning issues DVT prophylaxis Dystrophic nail Elev transaminase/LDH due to alcohol Epigastric abdominal pain Facial fracture due to fall Facial laceration Fall as cause of accidental injury at home as place of occurrence Fall at home Fracture of humerus, left, closed Genital herpes simplex recurrent gential; suppressive Valtrex GERD (gastroesophageal reflux disease) GI bleed (12/20/16) Head contusion Headache History of alcohol abuse Humerus fracture (09/12/19) Right Hyperlipidemia Hypertension Hypokalemia Hypokalemia Hypokalemia Hypomagnesemia Incidental lung nodule, greater than or equal to 8mm 1cm, spiculated, stable for many years, recommend f/u in 6 mo Intractable vomiting Leukopenia Macrocytosis (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 Multiple contusions Multiple fractures of ribs Multiple rib fractures 03/11/19 [facility] Nausea and vomiting in adult Non-cardiac chest pain (09/21/16) [facility] 09/21/16 NEGATIVE MP Osteoarthritis Osteopenia Palliative care patient (03/21/17) Pancreatitis, alcoholic, acute Peripheral edema Photophobia of right eye Pleural effusion on left 03/11/19 [facility] Pneumonia Presacral mass (~09/15/18) 09/15/18 [facility] Rash Rib pain on right side Right rib fracture Sacral mass Sciatica right, epidural injuections [facility] Suicidal ideation Tendinitis of left rotator cuff Tubular adenoma of colon (01/28/17) Urinary incontinence 01/24/13 urethral suspension and sling at [facility] (bladder suspension 1991) UTI (urinary tract infection) UTI (urinary tract infection) 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 Bladder repair. Ligation of fallopian tube Repair bladder injury, simple Social History/Home Situation: Leticia lives in a private home in [place], [place]. She has a caregiver who comes in daily 4 days per week for 2 hours each time to assist with laundry, minor house chores, and grocery shopping. Patient is independent with ADLs using a front wheeled walker. She receives meals on wheels. She no longer drives. Equipment Owned/DME: 3WW, FWW, SC, grab bars, emergency alert device Subjective: Leticia indicates that she now uses a 3-wheeled walker at home. Willing to demonstrate ambulation ability using front wheeled walker stating that she doesn't need to walk too far at home at each time. Hopeful that she will get all the needed services she she can be eligible for at home. Objective: General Observation: Telemetry. IV access through right UE. Mental Status: Alert and oriented. Aware of where she is. Unclear about time and date. Pain: Denies ROM: Right Upper Extremity: Shoulder Flexion allows up to 90 degrees. Shoulder abduction allows up to 70 degrees. Elbow flexion WFL. Wrist flexion WFL. Functional opening and closing of hand WFL. Left Upper Extremity: Shoulder Flexion allows up to 100 degrees. Shoulder abduction allows up to 90 degrees. Elbow flexion WFL. Wrist flexion WFL. Functional opening and closing of hand WFL. Right Lower Extremity: Hip flexion allows up to 20 degrees beyond 90 while seated at edge of bed. Hip abduction WFL. Knee flexion 30-90 degrees. Knee extension -30 degrees. Ankle dorsiflexion WFL. Ankle plantarflexion WFL. Left Lower Extremity: Hip flexion allows up to 20 degrees beyond 90 while seated at edge of bed. Hip abduction WFL. Knee flexion 30-90 degrees. Knee extension - 30 degrees. Ankle dorsiflexion WFL. Ankle plantarflexion WFL. Strength: Right Upper Extremity: Shoulder flexors 3-/5. Shoulder abductors 3-/5. Elbow flexors 4/5. Elbow extensors 4/5. Director Power strong. Left Upper Extremity: Shoulder flexors 3-/5. Shoulder abductors 3-/5. Elbow flexors 4/5. Elbow extensors 4/5. Director Power strong. Right Lower Extremity: Hip flexors 3-/5. Hip abductors 4-/5. Knee flexors 3-/5. Knee extensors 3-/5. Ankle dorsiflexors 4-/5. Ankle plantarflexors 4-/5. Left Lower Extremity: Hip flexors 3-/5. Hip abductors 4-/5. Knee flexors 3-/5. Knee extensors 3-/5. Ankle dorsiflexors 4-/5. Ankle plantarflexors 4-/5. Bed Mobility/Transfers: Supine to sit standby assist Sit to stand standby assist Stand to sit standby assist Bed to chair standby assist Gait: Patient exhibited reciprocal gait for 50 feet requiring standby assist from PT. Decreased violeta. Decreased step length and height. Denies headache, chest pain, and dizziness throughout activity. No LOB. Balance: Static Sitting: Normal Dynamic Sitting: Normal Static Standing: Fair Dynamic Standing: Fair Special Tests: Mobility Limitations Standardized Measure [facility] 6 clicks Basic Mobility Inpatient Short Form: Raw Score: 22 CMS Score: 21% deficit Informed Consent/Education: Patient instructed in purpose of PT consult and plan of care. Assessment: Patient only required standby assist for ambulation of up to 50 feet using front wheeled walker. Patient presents with clinical signs and symptoms consistent with current/admitting diagnoses that have resulted to mobility limitations, gait instability, generalized weakness, and impairment of motor control as demonstrated by the following impairment level findings: 1. Decreased strength to B UE/LE major muscle groups 2. Impaired static and dynamic standing balance Impairments are contributing to the following functional limitations: 2. Inability to safely ambulate without assistive device 3. Increase completion time for mobility ADL performance 4. Increased fall risk Patient is assessed as a 81382 moderate complexity based on the following: History: 75-year-old female with impairment level findings, functional impairments, medical history, and [place] PAC deficit score of 47% Examination: Demonstrable impairment in strength, balance, and range of motion with underlying impairments and functional limitations as documented above Presentation: Evolving Decision Makin moderate complexity Goals: Goals X1 week 1. Supine-Sit independent 2. Sit-Supine independent 3. Sit-Stand independent 4. Stand-Sit independent 5. Bed-Chair independent 6. Chair-Bed independent 7. Independent gait on level surface with use of straight cane for at least 100 feet without report of pain nor dyspnea 8. Independent stair negotiation while holding onto bilateral rails for at least 5 steps without report of pain nor dyspnea 9. Good static and dynamic standing balance/tolerance DISCHARGE RECOMMENDATIONS: [] Home with no services [] [X] Home with services. Home when medically cleared by hospitalist. Patient will benefit from home health PT services in order to progress mobility level using least restrictive assistive ambulatory device, assess home safety, identify additional equipment needs, and establish a functional maintenance program that will increase ability of patient to remain at home. [] Home with outpatient PT [] [] SNF for continued rehabilitation [] [] [facility] [] [] SNF versus LTC based on ability to participate and progress [] TREATMENT CODE/TIME: 88111 x 21 minutes beginning at 12:36 PM. Thank you for the opportunity to participate in the care of this patient. Tawana Cruz PT, DPT, CLT [facility] [place], [place]
[2021-07-27] MEDS: Refresh PLUS Eye Drops 0.4ml OU (12:41)
--- NOTE | 2021-07-27 13:00 | INITIAL_ITS ---
- If Service Date Differs Date of service: 07/27/21 Time of Service: 14:11 Care Management Initial Assess REASON FOR HOSPITALIZATION:: Pneumonia, ?PE PAST MEDICAL HISTORY/PAST SURGICAL HISTORY:: Active Problem List. Pneumonia (Acute). Nausea & vomiting (Acute). Abdominal pain (Acute). Depression with suicidal ideation (Acute). Alcohol intoxication (Acute). Alcohol abuse (Acute). Diarrhea (Acute). Epigastric pain (Acute). Nausea and vomiting (Acu te). Dehydration (Acute). Hypokalemia (Acute). Discharge planning issues (Acute). C. difficile colitis (Acute). Palliative care patient (Acute). Difficult intravenous access (Acute). Pancreatitis (Chronic). PTSD (post- traumatic stress disorder) (Acute). Anemia (Chronic). Depression (Chronic). Foot pain, right (Acute). T12 compression fracture (Acute). Presacral mass (Chronic). Deviated nasal septum (Acute). Frequent falls (Chronic). Head injury (Acute). Transaminitis (Acute). Ambulatory dysfunction (Chronic). Shoulder pain, right (Chronic). DVT prophylaxis (Acute). Suicidal ideation (Acute). Dry eye (Acute). Pruritus (Acute). Dystrophic nail (Acute). AMBER (acute kidney injury) (Acute). Iron deficiency anemia (Chronic). Alcohol abuse (Chronic). Hypomagnesemia (Chronic). Discharge planning issues (Acute). UTI (urinary tract infection) (Acute). Fall (Acute). Atelectasis of left lung (Chronic). Advance directive on file (Acute). Nodule of upper lobe of right lung (Acute ~09/13/18). Cataract (Chronic 11/07/15). Hypertension (Chronic). Hyperlipidemia (Chronic). Back pain, chronic (Chronic). Depression (Chronic). Osteopenia (Chronic). Medical History. Acute alcoholism. Acute UTI. Adjustment disorder with depressed mood. AMBER (acute kidney injury). Alcohol intoxication. Alcohol intoxication. Alcoholic gastritis without bleeding. Alcoholic ketosis. Allergic rhinitis. Anemia. Blunt head trauma. Blunt trauma of multiple sites of trunk. Calcific tendinitis of left shoulder. CAP (community acquired pneumonia). Cervical radicular pain. neck pain and DJD. [facility]. Cervical strain. 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). pls refrain from alcohol. Chronic alcoholism. she will not stop drinking unless she checks with me, so that we can help her avert withdrawal. I do not think she is capable on her own--she would need placement to achieve required goal of 3 months of sobriety. Chronic diarrhea. Closed displaced fracture of proximal phalanx of right index finger with routine healing (06/03/17). Closed right humeral fracture. Contusion of left little finger. Corneal ulcer, right (~08/23/18). 08/23/18; [facility]. Dehydration. Elev transaminase/LDH. due to alcohol. Epigastric abdominal pain. Facial fracture due to fall. Facial laceration. Fall as cause of accidental injury at home as place of occurrence. Fall at home. Fracture of humerus, left, closed. Genital herpes simplex. recurrent gential; suppressive Valtrex. GERD (gastroesophageal reflux disease). GI bleed (12/20/16). Head contusion. Headache. History of alcohol abuse. Humerus fracture (09/12/19). Right. Hypertension. Hypokalemia. Hypokalemia. Hypomagnesemia. Incidental lung nodule, greater than or equal to 8mm. 1cm, sp iculated, stable for many years, recommend f/u in 6 mo. Intractable vomiting. Leukopenia. Macrocytosis (09/26/14). due to alcohol. Multiple contusions. Multiple fractures of ribs. Multiple rib fractures. 03/11/19 [facility]. Non- cardiac chest pain (09/21/16). [facility] 09/21/16 NEGATIVE MP. Osteoarthritis. Palliative care patient (03/21/17). Pancreatitis, alcoholic, acute. Peripheral edema. Photophobia of right eye. Pleural effusion on left. 03/11/19 [facility]. Pneumonia. 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 09/15/18 [facility]. Rash. Rib pain on right side. Right rib fracture. Sacral mass. Sciatica. right, epidural injuections. [facility]. Suicidal ideation. Tendinitis of left rotator cuff. Tubular adenoma of colon (01/28/17). Urinary incontinence. 01/24/13 urethral suspension and sling at [facility]. (bladder suspension 1991). UTI (urinary tract infection). UTI (urinary tract infection). Vision loss of right eye. 08/17/18;[facility]. Wernicke encephalopathy. Surgical History. Bladder Surgery. suspension. Colonoscopy - MAC (01/28/17). EGD - MAC (12/20/16). History of bilateral ligation of fallopian tubes. History of Surgical Procedure. a. Bladder repair. Ligation of fallopian tube. Repair bladder injury, simple PREVIOUS FUNCTIONAL STATUS/SOCIAL/FAMILY SUPPORTS:: Leticia lives alone in her home in [place] with her dog and cats. She has a sister who takes care of her animals when she is hospitalized, and a caregiver, Armida Lo (H [phone]; C [phone]), who visits her 4x/week for 2 hrs at a time. Her son Seth is her DPOA, although he lives in [place]. CURRENT FUNCTIONAL STATUS:: Leticia was sitting up in bed when CM met with her. She was awake, alert, oriented, and engaged in conversation with CM. She reported that her son recently increased the hours that her caregiver, Armida is helping her at home. She stated that she has trouble taking her medication because although Armida sets it up for her, the cat will knock it off the table and she will not know which pills to take. She stated that she feels that she will benefit from HH services, as she does not currently have any. Later, she was being discharged and CM inquired about new HH services, which the provider agreed would be beneficial for her. CM informed HH of her new services. CM will continue to follow. ADVANCE DIRECTIVES:: [employer] on file. Son, Seth, listed as agent and DPOA. Has patient been provided with info about the portal/API?: Yes Did the patient sign up for the portal?: Yes (active) CODE STATUS:: DNR/DNI INSURANCE COVERAGE / FINANCIAL ISSUES:: [facility] ([facility] Replacement Plan) CURRENT HOME/COMMUNITY SERVICES/EQUIPMENT:: Leticia owns a walker, a cane, and a toilet seat riser. She has a caregiver four days a week for two hours per day, in addition to MOW. HH services will be ordered upon discharge. PRIMARY CARE PHYSICIAN:: Lavelle Galindo MD ([facility]) POTENTIAL DISCHARGE NEEDS:: Follow up with PCP and discharge plan of care. PATIENT/FAMILY EDUCATION NEEDS:: Review of discharge instructions regarding medications, activity level, and follow up plan of care, and discussion of Ask Me Three. ANTICIPATED BARRIERS TO DISCHARGE:: None anticipated. TRANSPORTATION:: Via [facility] private vehicle. PLAN:: Anticipate Leticia will be discharged home with new orders for HH RN, PT, LEAD SOFTWARE TESTER services when medically cleared by provider. She will follow up with her community providers and plan of care as directed. Leticia will transport home via [facility] private vehicle coordinated by CM. CM will continue to support Leticia and any discharge planning needs.
--- NOTE | 2021-07-27 14:33 | DSE_ITS ---
Date of service: 07/27/21 Time of Service: 14:33 DS: Diagnosis Discharge Diagnosis (1) Pneumonia: Status: Acute (2) Nausea & vomiting: Status: Acute (3) Alcohol abuse: Status: Acute (4) Anemia: Status: Chronic (5) Presacral mass: Status: Chronic (6) Pulmonary mass: Status: Acute (7) Palliative care patient: Status: Acute Discharge Plan Disposition Patient Disposition: HOME W/HOME HEALTH SERVICE Condition: Stable Discharge Details Reason For Visit: PNEUMONIA,?PE Admit Date/Time: 07/26/21 12:54 Admit Provider: Gwyn Blake Attending Provider: Gwyn Blake Primary Care Provider: Lavelle Galindo Hospital Course Hospital Course: This is a 76-year-old female, multiple comorbidities, presented to the ER via EMS for evaluation of abdominal pain, nausea, vomiting, cough, chest pressure. she reports that she has not drank any alcohol since . Clinically she presents with hypertension, tachycardia, appears dry. Given her tachycardia and shortness of breath, will obtain a cardiac work-up including a CTA of the chest. Will give IV Zofran, and a banana bag. Given her history of alcohol abuse, no alcohol in the past few days, will also give Ativan for concern there may be a component of withdrawal. She typically has no significant withdrawal historicially. Her CT was concerning for a possible PE but after inhouse radiology review it was ruled out. She remained stable overnight. diet advanced and tolerating well. she was at her baseline and appears better than previous admissions. she is requesting discharge to home. will place referral for home health services including nursing, PT/OT and CLINICAL PSYCHOLOGY TEACHER. discharge discussed with Dr Blake Home Meds and New Rx's Prescriptions: Continued Xiidra 5 % dropperette 1 drp ophthalmic (eye) BID RF: 0 fluoxetine 10 mg tablet 10 mg PO DAILY Qty: 30 RF: 3 ondansetron 4 mg tablet,disintegrating 4 mg PO Q8H PRN (Reason: nausea and vomiting) Qty: 20 RF: 0 Ensure Active High Protein Liquid 414 ml PO DAILY Qty: 35768 RF: 11 multivitamin [Multiple Vitamins] Tablet 1 tab PO DAILY Qty: 90 RF: 3 thiamine HCl (vitamin B1) 100 mg tablet 100 mg PO DAILY Qty: 90 RF: 3 folic acid 1 mg tablet 1 mg PO DAILY Qty: 90 RF: 3 sucralfate 1 gram tablet 1 g PO BID Qty: 60 RF: 11 Refresh Plus 0.5 % Dropperette 1 drp OU Q4H WHILE AWAKE Qty: 30 RF: 0 Discharge Instructions Instructions: Acute Nausea and Vomiting (DC) Stand Alone Forms: Nursing Discharge Form Referrals: Lavelle Galindo MD [Primary Care Provider] - 08/04/21 11:00 am Activity:: Activity as Tolerated Equipment/Supplies:: No Equipment Needed Diet:: As Tolerated Discharge Orders Discharge Orders: Discharge Order (Routine); Ordered 07/27/21 Ordered By: Kimmy Sierra Discharge Data Discharge Date/Time-TO BE ENTERED AT DEPARTURE: 07/27/21 15:46 DS: Summary Time Spent with Patient providing and/or coordinating discharge services: Greater than 30 minutes Status at Discharge Functional status at discharge: uses cane/walker Overall status at discharge: patient is progressing back to baseline Mental Status: mental status grossly normal Speech and Movement: speech and movement normal Mood: congruent mood Affect: normal affect Exam Const General: cooperative, comfortable and no acute distress Nutritional Appearance: obese Orientation: alert, awake and oriented x3 Eyes Eyelids: eyelids normal Pupils: PERRL EOM: EOM intact bilaterally Neck Neck: normal visual inspection and no JVD Lymphatic: no lymphadenopathy noted Resp Effort & Inspection: normal respiratory effort Auscultation: clear to auscultation bilaterally Cardio Jugular venous pressure: no JVD Rhythm: regular rhythm Heart Sounds: S1 normal GI Auscultation: normal bowel sounds General: No CVA tenderness and deferred Skin General skin exam: no rashes or lesions noted Neuro General: patient alert, patient awake and patient oriented x3 Cognition: normal cognition Speech: speech normal Gait: normal gait Extrem General: normal to inspection, full ROM and no clubbing, cyanosis or edema Psych Mental Status: mental status grossly normal Speech and Movement: speech and movement normal Mood: congruent mood Affect: normal affect DS: Data Vitals/I&O Vitals and I&O: Vital Signs Temperature 36.4 C L 07/27/21 08:00 Temperature Source Tympanic 07/27/21 08:00 Pulse 91 H 07/27/21 08:00 Pulse Rhythm Regular 07/27/21 12:35 Pulse 113 H 07/26/21 13:31 Respiratory Rate 20 07/27/21 08:00 Respiratory Effort Non-Labored 07/27/21 12:35 Respiratory Depth Normal 07/27/21 12:35 Respiratory Pattern Normal 07/27/21 12:35 Blood Pressure 160/90 H 07/27/21 08:00 Blood Pressure Mean 112 07/26/21 13:30 Pulse Oximetry 96 07/27/21 08:00 Oxygen Delivery Method Room Air 07/27/21 08:00 Oxygen Flow Rate 0 07/27/21 08:00 Pain Level 8 07/27/21 08:42 Intake & Output 07/26/21 07/27/21 07/27/21 23:59 11:59 23:59 Intake Total 471.5 / 621.5 1375.667 / 1875.667 500 / 1875.667 Balance 471.5 / 471.5 1375.667 / 1875.667 500 / 1875.667 Weight 63.3 kg 61.3 kg Intake: IV 471.5 / 621.5 1075.667 / 1075.667 Oral 300 / 800 500 / 800 Other: Urine Appearance Clear Clear Clear Stool Size Large Stool Characteristics Liquid Data Completed and Pending Labs on day of discharge: Labs from last 24 hours 07/27/21 07/27/21 06:09 06:09 WBC 2.98 L D RBC 2.85 L Hgb 9.5 L D Hct 29.6 L MCV 103.9 H MCH 33.3 H MCHC 32.1 RDW 15.9 H Plt Count 119 L MPV 10.1 Immature Gran % 1.0 Neutrophils % 66.1 Lymphocytes % 20.5 Monocytes % 11.7 Eosinophils % 0.0 Basophils % 0.7 Nucleated RBC % 0 Absolute Neutrophils 1.97 Absolute Lymphocytes 0.61 L Absolute Monocytes 0.35 Absolute Eosinophils 0.00 Absolute Basophils 0.02 Sodium 137 Potassium 3.7 Chloride 102 Carbon Dioxide 27.4 Anion Gap 7.6 BUN 10 Creatinine 0.8 Estimated GFR/1.73 m2 >= 60.00 Glucose 145 H Calcium 8.6 Magnesium 2.5 H Total Bilirubin 2.1 H AST 75 H ALT 52 Alkaline Phosphatase 154 H Total Protein 5.6 L Albumin 2.7 L Preliminary micro results at discharge 07/26/21 11:03 Blood Culture - Preliminary Blood NO GROWTH 24 HOURS 07/26/21 10:45 Blood Culture - Preliminary Blood NO GROWTH 24 HOURS [facility] Active Problem List Pneumonia (Acute) Nausea & vomiting (Acute) Abdominal pain (Acute) Depression with suicidal ideation (Acute) Alcohol intoxication (Acute) Alcohol abuse (Acute) Diarrhea (Acute) Epigastric pain (Acute) Nausea and vomiting (Acute) Dehydration (Acute) Hypokalemia (Acute) Discharge planning issues (Acute) C. difficile colitis (Acute) Palliative care patient (Acute) Difficult intravenous access (Acute) Pancreatitis (Chronic) PTSD (post-traumatic stress disorder) (Acute) Anemia (Chronic) Depression (Chronic) Foot pain, right (Acute) T12 compression fracture (Acute) Presacral mass (Chronic) Deviated nasal septum (Acute) Frequent falls (Chronic) Head injury (Acute) Transaminitis (Acute) Ambulatory dysfunction (Chronic) Shoulder pain, right (Chronic) DVT prophylaxis (Acute) Suicidal ideation (Acute) Dry eye (Acute) Pruritus (Acute) Dystrophic nail (Acute) AMBER (acute kidney injury) (Acute) Iron deficiency anemia (Chronic) Alcohol abuse (Chronic) Hypomagnesemia (Chronic) Discharge planning issues (Acute) UTI (urinary tract infection) (Acute) Fall (Acute) Atelectasis of left lung (Chronic) Advance directive on file (Acute) Nodule of upper lobe of right lung (Acute ~09/13/18) Cataract (Chronic 11/07/15) Hypertension (Chronic) Hyperlipidemia (Chronic) Back pain, chronic (Chronic) Depression (Chronic) Osteopenia (Chronic) Medical History Acute alcoholism Acute UTI Adjustment disorder with depressed mood AMBER (acute kidney injury) Alcohol intoxication Alcohol intoxication Alcoholic gastritis without bleeding Alcoholic ketosis Allergic rhinitis Anemia Blunt head trauma Blunt trauma of multiple sites of trunk Calcific tendinitis of left shoulder CAP (community acquired pneumonia) Cervical radicular pain neck pain and DJD [facility] Cervical strain 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) pls refrain from alcohol Chronic alcoholism she will not stop drinking unless she checks with me, so that we can help her avert withdrawal I do not think she is capable on her own--she would need placement to achieve required goal of 3 months of sobriety Chronic diarrhea Closed displaced fracture of proximal phalanx of right index finger with routine healing (06/03/17) Closed right humeral fracture Contusion of left little finger Corneal ulcer, right (~08/23/18) 08/23/18; [facility] Dehydration Elev transaminase/LDH due to alcohol Epigastric abdominal pain Facial fracture due to fall Facial laceration Fall as cause of accidental injury at home as place of occurrence Fall at home Fracture of humerus, left, closed Genital herpes simplex recurrent gential; suppressive Valtrex GERD (gastroesophageal reflux disease) GI bleed (12/20/16) Head contusion Headache History of alcohol abuse Humerus fracture (09/12/19) Right Hypertension Hypokalemia Hypokalemia Hypomagnesemia Incidental lung nodule, greater than or equal to 8mm 1cm, spiculated, stable for many years, recommend f/u in 6 mo Intractable vomiting Leukopenia Macrocytosis (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 Multiple contusions Multiple fractures of ribs Multiple rib fractures 03/11/19 [facility] Non-cardiac chest pain (09/21/16) [facility] 09/21/16 NEGATIVE MP Osteoarthritis Palliative care patient (03/21/17) Pancreatitis, alcoholic, acute Peripheral edema Photophobia of right eye Pleural effusion on left 03/11/19 [facility] Pneumonia Presacral mass (~09/15/18) 09/15/18 [facility] Rash Rib pain on right side Right rib fracture Sacral mass Sciatica right, epidural injuections [facility] Suicidal ideation Tendinitis of left rotator cuff Tubular adenoma of colon (01/28/17) Urinary incontinence 01/24/13 urethral suspension and sling at [facility] (bladder suspension 1991) UTI (urinary tract infection) UTI (urinary tract infection) 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 Bladder repair. Ligation of fallopian tube Repair bladder injury, simple Family History Mother No problems noted. Father , DROWNED at age 50. No problems noted. Sister Personal history of malignant neoplasm MELANOMA Sister No problems noted. Grandfather Personal history of malignant neoplasm STOMACH Grandfather Personal history of malignant neoplasm PROSTATE Grandmother Heart disease AR Acute ill-defined cerebrovascular disease Grandmother Personal history of malignant neoplasm UTERINE Aunt , AR Heart disease AR Aunt , AR Heart disease Brother No problems noted. Social History Smoking/Tobacco Use Status: Former Tobacco Use Quit Date: 08/05/20 Smoking risk assessment performed?: Yes Alcohol Intake: current Alcohol Intake frequency: 3 or more drinks per day Alcohol type: hard liquor Drug use: Never Substance use type: does not use Current gender identity: female Do you feel safe at home: Yes Do you feel safe in your relationship?: Yes Additional Social history: Pt has been binge drinking since 4am
--- NOTE | 2021-07-27 14:44 | PDOC.HHF2F_ITS ---
Home Health Certification Home Health Certification: 1. Encounter Date and Reason I certify that Leticia Garza was seen by Kimmy Sierra on 07/27/21 and that I had a [id number] encounter with this patient that meets the physician face to face encounter requirements. 2. Clinical Findings Supporting Skilled Need and Homebound Status I certify that home health services are medically necessary, include either intermittent [place] [facility] and/or physical/speech therapy, and that this katheryn ent is homebound in that absences from the home require considerable and taxing effort and are infrequent or of short duration, or are attributable to the need to receive medical care. [X] (a) Attached documentation from encounter provides clinical findings supporting skilled need and homebound status (including what assistance patient requires to leave the home). The encounter with the patient was in whole, or in part, for the following medical condition, which is the primary reason for home health care: PNEUMONIA,?PE Nursing Home: routine nursing routine evaluation and medication oversight Physical and Occupational Therapy: routine evaluation and treatment FUNDRAISING SALE REPRESENTATIVE: routine evaluation and management Homebound: unable to safely leave the house unattended d/t gait instability and generalized weakness, 3. Certification and Authentication I certify that I composed the above information based on my clinical judgment relating to this patient's medical condition and, if applicable, clinical findings communicated to me by the NPP or inpatient physician who performed the Home Health Referral. All further orders will be obtained through DR Lavelle Galindo_(Community Based Physician - PCP)
--- NOTE | 2021-07-27 18:07 | CMDISCH_ITS ---
- If Service Date Differs Date of service: 07/27/21 Time of Service: 18:07 LACE Index Scoring Tool - Questions: Length of Stay (in days): 1 Acuity (Admit via E.D.?): Yes Comorbidities: Any Tumor E.D. Visits: 21 - Answers: Total Score: 10 Risk of Readmission: High Risk Care Management Discharge Reason for Hospitalization: Pneumonia, ?PE Discharge Plan: Leticia returned home today with new orders for RN, PT, OT and MICROFILM CLERK. She was driven home via private vehicle [facility], coordinated by [facility]. She will follow up with her PCP and discharge plan of care. She was happy to be going home. Patient/Family Education Needs: Review discharge instructions regarding activity levels and medications, discussion of self care needs including ask me three and goals of care. Services Needed at Discharge: Home Health Care Services (new RN, PT, OT, MICROFILM CLERK), Transportation ([facility] pv)
--- NOTE | 2021-07-28 09:55 | PT.INDS ---
Date of service: 07/28/21 PT Notes Visit Reasons: PNEUMONIA,?PE Physical Therapy Inpatient Discharge Summary Date: 07/27/2021 Dates of Service: 07/27/2021 only This is a clinical summary of care provided for the duration of dates listed above. No charge was made in the completion of this documentation. Referring Doctor: Pat Navarro NP PT Orders: PT CONSULT:Eval/Treat. Precautions: Standard. Frequent falls. Activity as tolerated. Patient Profile/Admitting Diagnosis: Leticia is a 75-year-old female who presented to the ED on 07/26/2021 due to abdominal pain, nausea, vomiting, cough, and chest pressure. Patient is diagnosed with abdominal pain, nausea and vomiting from recent intoxication, pneumonia, EtOH intoxication, frequent falls, and dehydration. PMHX: Medical History Acute alcoholism Acute UTI Adjustment disorder with depressed mood AMBER (acute kidney injury) Alcohol abuse Alcohol intoxication Alcohol intoxication Alcoholic gastritis without bleeding Alcoholic ketosis Allergic rhinitis Anemia Back pain, chronic Blunt head trauma Blunt trauma of multiple sites of trunk Calcific tendinitis of left shoulder CAP (community acquired pneumonia) Cataract (11/07/15) Cervical radicular pain neck pain and DJD [facility] Cervical strain 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) pls refrain from alcohol Chronic alcoholism she will not stop drinking unless she checks with me, so that we can help her avert withdrawal I do not think she is capable on her own--she would need placement to achieve required goal of 3 months of sobriety Chronic diarrhea Closed displaced fracture of proximal phalanx of right index finger with routine healing (06/03/17) Closed right humeral fracture Contusion of left little finger Corneal ulcer, right (~08/23/18) 08/23/18; [facility] Dehydration Depression Diarrhea Discharge planning issues DVT prophylaxis Dystrophic nail Elev transaminase/LDH due to alcohol Epigastric abdominal pain Facial fracture due to fall Facial laceration Fall as cause of accidental injury at home as place of occurrence Fall at home Fracture of humerus, left, closed Genital herpes simplex recurrent gential; suppressive Valtrex GERD (gastroesophageal reflux disease) GI bleed (12/20/16) Head contusion Headache History of alcohol abuse Humerus fracture (09/12/19) Right Hyperlipidemia Hypertension Hypokalemia Hypokalemia Hypokalemia Hypomagnesemia Incidental lung nodule, greater than or equal to 8mm 1cm, spiculated, stable for many years, recommend f/u in 6 mo Intractable vomiting Leukopenia Macrocytosis (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 Multiple contusions Multiple fractures of ribs Multiple rib fractures 03/11/19 [facility] Nausea and vomiting in adult Non-cardiac chest pain (09/21/16) [facility] [place]16 NEGATIVE MP Osteoarthritis Osteopenia Palliative care patient (03/21/17) Pancreatitis, alcoholic, acute Peripheral edema Photophobia of right eye Pleural effusion on left 03/11/19 [facility] Pneumonia Presacral mass (~09/15/18) 09/15/18 [facility] Rash Rib pain on right side Right rib fracture Sacral mass Sciatica right, epidural injuections [facility] Suicidal ideation Tendinitis of left rotator cuff Tubular adenoma of colon (01/28/17) Urinary incontinence 01/24/13 urethral suspension and sling at [facility] [place] (bladder suspension 1991) UTI (urinary tract infection) UTI (urinary tract infection) 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 Bladder repair. Ligation of fallopian tube Repair bladder injury, simple Social History/Home Situation: Leticia lives in a private home in [place], [place]. She has a caregiver who comes in daily 4 days per week for 2 hours each time to assist with laundry, minor house chores, and grocery shopping. Patient is independent with ADLs using a front wheeled walker. She receives meals on wheels. She no longer drives. Equipment Owned/DME: 3WW, FWW, SC, grab bars, emergency alert device Subjective: NT. See most recent WELDING SUPERVISOR notes. Objective: General Observation: NT. See most recent WELDING SUPERVISOR notes. Mental Status: NT. See most recent WELDING SUPERVISOR notes. Pain: NT. See most recent WELDING SUPERVISOR notes. ROM: Right Upper Extremity: Shoulder Flexion allows up to 90 degrees. Shoulder abduction allows up to 70 degrees. Elbow flexion WFL. Wrist flexion WFL. Functional opening and closing of hand WFL. Left Upper Extremity: Shoulder Flexion allows up to 100 degrees. Shoulder abduction allows up to 90 degrees. Elbow flexion WFL. Wrist flexion WFL. Functional opening and closing of hand WFL. Right Lower Extremity: Hip flexion allows up to 20 degrees beyond 90 while seated at edge of bed. Hip abduction WFL. Knee flexion 30-90 degrees. Knee extension -30 degrees. Ankle dorsiflexion WFL. Ankle plantarflexion WFL. Left Lower Extremity: Hip flexion allows up to 20 degrees beyond 90 while seated at edge of bed. Hip abduction WFL. Knee flexion 30-90 degrees. Knee extension -30 degrees. Ankle dorsiflexion WFL. Ankle plantarflexion WFL. Strength: Right Upper Extremity: Shoulder flexors 3-/5. Shoulder abductors 3-/5. Elbow flexors 4/5. Elbow extensors 4/5. Operations Manager Assistant strong. Left Upper Extremity: Shoulder flexors 3-/5. Shoulder abductors 3-/5. Elbow flexors 4/5. Elbow extensors 4/5. Operations Manager Assistant strong. Right Lower Extremity: Hip flexors 3-/5. Hip abductors 4-/5. Knee flexors 3-/5. Knee extensors 3-/5. Ankle dorsiflexors 4-/5. Ankle plantarflexors 4-/5. Left Lower Extremity: Hip flexors 3-/5. Hip abductors 4-/5. Knee flexors 3-/5. Knee extensors 3-/5. Ankle dorsiflexors 4-/5. Ankle plantarflexors 4-/5. Bed Mobility/Transfers: Supine to sit standby assist Sit to stand standby assist Stand to sit standby assist Bed to chair standby assist Gait: Patient exhibited reciprocal gait for 50 feet requiring standby assist from PT. Decreased violeta. Decreased step length and height. Denies headache, chest pain, and dizziness throughout activity. No LOB. Balance: Static Sitting: Normal Dynamic Sitting: Normal Static Standing: Fair Dynamic Standing: Fair Assessment: Patient only required standby assist for ambulation of up to 50 feet using front wheeled walker. Patient presents with clinical signs and symptoms consistent with current/admitting diagnoses that have resulted to mobility limitations, gait instability, generalized weakness, and impairment of motor control as demonstrated by the following impairment level findings: 1. Decreased strength to B UE/LE major muscle groups 2. Impaired static and dynamic standing balance Impairments are contributing to the following functional limitations: 2. Inability to safely ambulate without assistive device 3. Increase completion time for mobility ADL performance 4. Increased fall risk Goals: Goals X1 week 1. Supine-Sit independent NOT MET 2. Sit-Supine independent NOT MET 3. Sit-Stand independent NOT MET 4. Stand-Sit independent NOT MET 5. Bed-Chair independent NOT MET 6. Chair-Bed independent NOT MET 7. Independent gait on level surface with use of straight cane for at least 100 feet without report of pain nor dyspnea NOT MET 8. Independent stair negotiation while holding onto bilateral rails for at least 5 steps without report of pain nor dyspnea NOT MET 9. Good static and dynamic standing balance/tolerance NOT MET DISCHARGE RECOMMENDATIONS: [] Home with no services [] [X] Home with services. Home when medically cleared by hospitalist. Patient will benefit from home health PT services in order to progress mobility level using least restrictive assistive ambulatory device, assess home safety, identify additional equipment needs, and establish a functional maintenance program that will increase ability of patient to remain at home. [] Home with outpatient PT [] [] SNF for continued rehabilitation [] [] Alf Care [] [] SNF versus LTC based on ability to participate and progress [] TREATMENT CODE/TIME: [place] Thank you for the opportunity to participate in the care of this patient. Tawana Cruz PT, DPT, CLT [facility] [place], [place]
[2021-07-28 23:05] LABS: Streptococcus Pneumoniae Ag, U Negative (Negative)
== END 2021-07-27 15:46 | disposition home health service (06) | DRG 194 ==
LOC: ER 13:37 → MS 13:56
PROVIDERS: Admitting Provider Internal Medicine; Emergency Provider Physician Assistant; PCP Family Medicine; Visit Provider Internal Medicine
DX: J18.9 Pneumonia, unspecified organism; K86.1 Other chronic pancreatitis; R45.851 Suicidal ideations; R11.2 Nausea with vomiting, unspecified; I10 Essential (primary) hypertension; R00.0 Tachycardia, unspecified; D64.9 Anemia, unspecified; E83.42 Hypomagnesemia; R10.9 Unspecified abdominal pain; R29.6 Repeated falls; R91.1 Solitary pulmonary nodule; E86.0 Dehydration; F10.20 Alcohol dependence, uncomplicated; Z20.822 Contact with and (suspected) exposure to COVID-19; K76.0 Fatty (change of) liver, not elsewhere classified; Z91.81 History of falling; F32.9 Major depressive disorder, single episode, unspecified; D50.9 Iron deficiency anemia, unspecified; M79.89 Other specified soft tissue disorders; R07.89 Other chest pain
CPT/HCPCS: 36415; 51701; 71275; 80053; 83690; 87040; 87635; 93005; 96365; 96366; 96367; 96368; 96375; 96376; 97162; 99285; J1650; 73502; 74177; 80320; 81003; 83605; 83735; 83880; 84484; 85025; 85610; 85730; 87899; 93010; 99223; 99239; J0696; J2060; J2405; J3475; J3490

== ENCOUNTER 2021-09-23 17:09 | Emergency (ER) | payer MEDICARE, SELFPAY ==
[2021-09-23] VITALS (12 sets, daily range): BP systolic 150–165; BP diastolic 72–98; PULSE 86–96; RESP 14–22; TEMP 36.1; O2SAT 96–98
--- NOTE | 2021-09-23 17:15 | ED.GENADUL_ITS ---
Discharge Plan Disposition Patient Disposition: HOME Condition: Improving Discharge Details Clinical Impression: Nausea and vomiting, Hypokalemia, Hypomagnesemia, Alcohol intoxication, UTI (urinary tract infection) Primary Care Provider: Lavelle Galindo ED Provider: Gwyn Sandoval Home Meds and New Rx's Prescriptions: New nitrofurantoin monohyd/m-cryst [Macrobid] 100 mg capsule 100 mg PO BID Qty: 14 RF: 0 Continued Xiidra 5 % dropperette 1 drp ophthalmic (eye) BID RF: 0 venlafaxine 75 mg capsule,extended release 24hr 75 mg PO DAILY Qty: 90 RF: 11 mirtazapine 7.5 mg tablet 7.5 mg PO QHS Qty: 90 RF: 4 buspirone 5 mg tablet 5 mg PO BID Qty: 60 RF: 5 Ensure Active High Protein Liquid 414 ml PO DAILY Qty: 81407 RF: 11 multivitamin [Multiple Vitamins] Tablet 1 tab PO DAILY Qty: 90 RF: 3 thiamine HCl (vitamin B1) 100 mg tablet 100 mg PO DAILY Qty: 90 RF: 3 folic acid 1 mg tablet 1 mg PO DAILY Qty: 90 RF: 3 sucralfate 1 gram tablet 1 g PO BID Qty: 60 RF: 11 ondansetron 4 mg tablet,disintegrating 4 mg PO Q8H PRN (Reason: nausea and vomiting) Qty: 20 RF: 0 Refresh Plus 0.5 % Dropperette 1 drp OU Q4H WHILE AWAKE Qty: 30 RF: 0 Discharge Instructions Instructions: Urinary Tract Infection in Women (ED), Hypokalemia (ED), Alcohol Intoxication (ED), Acute Nausea and Vomiting (ED), Hypomagnesemia (ED) Additional Instructions: Zofran and Macrobid as directed. Plenty of fluids to avoid dehydration. Please drink alcohol responsibly and do not drink in excess. Please watch for new or w orsening symptoms and return to the ER for any concerns. Lastly, please contact your primary care provider tomorrow to discuss your ER visit and need for outpatient reevaluation. Medical Decision Making 76-year-old female who is well-known to our ER presents via EMS for concern of dehydration, ongoing abdominal cramping, nausea, vomiting. Clinically she appears well, nontoxic, she is not slurring her words. No retching or active vomiting. Her mucous membranes appear slightly dry. She appears hemodynamically stable. Plan is to obtain IV access, give Zofran IV fluid obtain routine screening laboratory values including an alcohol level. Abdomen is soft, nontender, certainly nonsurgical. Laboratory values reveal a white blood cell count of 6.82 hemoglobin 12.5 hematocrit 39.7 platelet count 179. Potassium of 2.9. Will give 10 IV and 40 p.o. of potassium. Given her hypokalemia, will obtain a EKG. Reviewing her records, she has had hypokalemia multiple times in the past. Creatinine 0.7 with a GFR greater than 60. Her magnesium is 1.6, will give 1 g IV. Total bili of 1.2 which is below her normal. Alcohol of 222. Lipase of 39. urine reveals trace ketones, small leuk esterase, greater than 50 white cells. Will give first dose of Macrobid now and provide prescription for antibiotics. We did discuss the importance of electrolyte intake, Gatorade, bananas, etc. and how detrimental chronic alcohol can be to this. Patient is not interested in detox. She reports improvement of her symptoms with IV fluid and Zofran. She tolerated p.o. intake in the ER without any difficulty. She was then witnessed ambulating steadily using a walker which she reports is how she typically ambulates. Patient reports that she would like to be discharged home and we will work on a ride home for her using RCT. Strict discharge and return precautions were provided. Otherwise she will contact her primary care provider tomorrow to discuss her ongoing visits and need for outpatient reevaluation. This documentation was generated using [employer]Bot[employer] system, please disregard any oddities of phrase or misspellings. Medical Records Medical records reviewed: Yes I reviewed the patient's medical records. Lab Data Lab results reviewed: Yes I reviewed the patient's lab results. Labs: 09/23/21 17:55 Urine - Reflex from Ua Urine Culture - Pending Laboratory Tests Range/Units 09/23/21 09/23/21 09/23/21 17:25 17:25 17:25 WBC (4.4-10.8) 10^3/uL 6.82 RBC (3.93-5.22) 10^6/uL 3.68 L Hgb (11.2-15.7) g/dL 12.5 Hct (36.0-46.0) % 39.7 MCV (80-95) fL 107.9 H MCH (27.0-33.0) pg 34.0 H MCHC (32.0-36.0) % 31.5 L RDW (11.7-14.6) % 13.2 Plt Count (130-400) 10^3/uL 179 MPV (8.0-11.0) fL 8.9 Immature Gran % 0.6 Neutrophils % 74.2 Lymphocytes % 18.6 Monocytes % 6.2 Eosinophils % 0.0 Basophils % 0.4 Nucleated RBC % % 0 Absolute Neutrophils (1.2-6.7) 10^3/uL 5.06 Absolute Lymphocytes (1.2-3.4) 10^3/uL 1.27 Absolute Monocytes (0.1-0.8) 10^3/uL 0.42 Absolute Eosinophils (0.0-0.7) 10^3/uL 0.00 Absolute Basophils (0.0-0.2) 10^3/uL 0.03 RBC Morphology See Below Macrocytosis 2+ Sodium (136-145) mmol/L 141 Potassium (3.5-5.1) mmol/L 2.9 L Chloride (98-107) mmol/L 100 Carbon Dioxide (21.0-32.0) mmol/L 27.6 Anion Gap (3-11) mmol/L 13.4 H BUN (7-18) mg/dL 10 Creatinine (0.55-1.02) mg/dL 0.7 Estimated GFR/1.73 m2 (mL/min/1.73m2) >= 60.00 Glucose (74-106) mg/dL 110 H Calcium (8.5-10.1) mg/dL 9.7 Magnesium (1.8-2.4) mg/dL 1.6 L Total Bilirubin (0.2-1.0) mg/dL 1.2 H AST (15-37) U/L 136 H ALT (14-59) U/L 44 Alkaline Phosphatase (46-116) U/L 283 H Total Protein (6.4-8.2) g/dL 8.2 Albumin (3.4-5.0) g/dL 3.3 L Lipase (73-393) U/L 39 Urine Color (Yellow) Urine Clarity (Clear) Urine pH (5-8) Ur Specific [place] (1.005-1.025) Urine Protein (Negative) mg/dL Urine Ketones (Negative) mg/dL Urine Blood (Negative) Urine Nitrite (Negative) Urine Bilirubin (Negative) Urine Urobilinogen (Up TO 0.2) EU/dL Ur Leukocyte Esterase (Negative) Urine RBC Urine WBC (0-5) HPF Ur Epithelial Cells Urine Crystals (Negative) HPF Urine Bacteria (Negative) HPF Urine Mucus Ur Culture Indicated? Urine Glucose (Negative) mg/dL Ethyl Alcohol (<10) mg/dL 222.0 H Range/Units 09/23/21 17:55 WBC (4.4-10.8) 10^3/uL RBC (3.93-5.22) 10^6/uL Hgb (11.2-15.7) g/dL Hct (36.0-46.0) % MCV (80-95) fL MCH (27.0-33.0) pg MCHC (32.0-36.0) % RDW (11.7-14.6) % Plt Count (130-400) 10^3/uL MPV (8.0-11.0) fL Immature Gran % Neutrophils % Lymphocytes % Monocytes % Eosinophils % Basophils % Nucleated RBC % % Absolute Neutrophils (1.2-6.7) 10^3/uL Absolute Lymphocytes (1.2-3.4) 10^3/uL Absolute Monocytes (0.1-0.8) 10^3/uL Absolute Eosinophils (0.0-0.7) 10^3/uL Absolute Basophils (0.0-0.2) 10^3/uL RBC Morphology Macrocytosis Sodium (136-145) mmol/L Potassium (3.5-5.1) mmol/L Chloride (98-107) mmol/L Carbon Dioxide (21.0-32.0) mmol/L Anion Gap (3-11) mmol/L BUN (7-18) mg/dL Creatinine (0.55-1.02) mg/dL Estimated GFR/1.73 m2 (mL/min/1.73m2) Glucose (74-106) mg/dL Calcium (8.5-10.1) mg/dL Magnesium (1.8-2.4) mg/dL Total Bilirubin (0.2-1.0) mg/dL AST (15-37) U/L ALT (14-59) U/L Alkaline Phosphatase (46-116) U/L Total Protein (6.4-8.2) g/dL Albumin (3.4-5.0) g/dL Lipase (73-393) U/L Urine Color (Yellow) Yellow Urine Clarity (Clear) Sl Cloudy Urine pH (5-8) 6.0 Ur Specific [place] (1.005-1.025) >= 1.030 H Urine Protein (Negative) mg/dL 30 H Urine Ketones (Negative) mg/dL Trace H Urine Blood (Negative) Trace-intact H Urine Nitrite (Negative) Negative Urine Bilirubin (Negative) Negative Urine Urobilinogen (Up TO 0.2) EU/dL 1.0 H Ur Leukocyte Esterase (Negative) Small H Urine RBC Not Applicable Urine WBC (0-5) HPF >50 H Ur Epithelial Cells Not Applicable Urine Crystals (Negative) HPF Many Amorphous Urine Bacteria (Negative) HPF Many Urine Mucus Not Applicable Ur Culture Indicated? Yes Urine Glucose (Negative) mg/dL Negative Ethyl Alcohol (<10) mg/dL ECG Data Attestation: I personally reviewed and interpreted this ECG (s) as follows: Interpretation: Please see official report by Dr. Crenshaw. Sinus rhythm, ventricular rate 87. Prolonged QT interval. No STEMI. No significant changes consistent with hypokalemia HPI General Mode of arrival: EMS . Date/Time Provider Initiated Documentation: 09/23/21 17:15 . Limitations to Documentation: no limitations . Information obtained by: patient and EMS . HPI Narrative: This is a 76-year-old female with a past medical history of alcohol abuse, pancreatitis, PTSD, anemia, depression, hypertension, chronic back pain, presenting to the ER via EMS after a friend called EMS, complaining of nausea, vomiting, worse after she eats, decreased oral intake, concern for dehydration, and chronic pain. She admits to continuing to drink alcohol on a daily basis and is not interested in detox. She denies recent illness or trauma. She does report a mild dull headache which is normal for her. Denies visual changes, neck pain, chest pain, short of breath, diarrhea, constipation, dysuria, pain or swelling in legs, skin rash. She tells me she has not taken any of her medications today given her nausea and vomiting, has not taken any [id number] medications for symptomatic control. Related Data Home Medications Medication Instructions Recorded Confirmed Refresh Plus 1 drp OU Q4H WHILE AWAKE #30 each 06/20/19 09/23/21 food supplemt, lactose-reduced 414 ml PO DAILY #52508 ml 08/24/19 09/23/21 lifitegrast 5 % eye drops in a 1 drp OPHTHALMIC (EYE) BID 08/05/20 09/23/21 dropperette folic acid 1 mg tablet 1 mg PO DAILY #90 tab 09/05/20 09/23/21 multivitamin 1 tab PO DAILY #90 tab 09/05/20 09/23/21 thiamine HCl (vitamin B1) 100 mg 100 mg PO DAILY #90 tab 09/05/20 09/23/21 tablet sucralfate 1 gram tablet 1 g PO BID #60 tab 06/11/21 09/23/21 buspirone 5 mg tablet 5 mg PO BID #60 tab 08/05/21 09/23/21 mirtazapine 7.5 mg tablet 7.5 mg PO QHS #90 tab 08/05/21 09/23/21 venlafaxine 75 mg capsule,extended 75 mg PO DAILY #90 cap 08/05/21 09/23/21 release 24 hr ondansetron 4 mg disintegrating 4 mg PO Q8H PRN #20 tab 09/08/21 09/23/21 tablet nitrofurantoin monohyd/m-cryst 100 mg PO BID #14 cap 09/23/21 [Macrobid] Previous Rx's Medication Instructions Recorded Refresh Plus 1 drp OU Q4H WHILE AWAKE #30 each 06/20/19 food supplemt, lactose-reduced 414 ml PO DAILY #57746 ml 08/24/19 folic acid 1 mg tablet 1 mg PO DAILY #90 tab 09/05/20 multivitamin 1 tab PO DAILY #90 tab 09/05/20 thiamine HCl (vitamin B1) 100 mg 100 mg PO DAILY #90 tab 09/05/20 tablet sucralfate 1 gram tablet 1 g PO BID #60 tab 06/11/21 buspirone 5 mg tablet 5 mg PO BID #60 tab 08/05/21 mirtazapine 7.5 mg tablet 7.5 mg PO QHS #90 tab 08/05/21 venlafaxine 75 mg capsule,extended 75 mg PO DAILY #90 cap 08/05/21 release 24 hr ondansetron 4 mg disintegrating 4 mg PO Q8H PRN #20 tab 09/08/21 tablet nitrofurantoin monohyd/m-cryst 100 mg PO BID #14 cap 09/23/21 [Macrobid] Allergies Allergy/AdvReac Type Severity Reaction Status Date / Time Penicillins Allergy Mild Rash Verified 09/23/21 17:23 ramipril Allergy Unknown ITCHING Verified 09/23/21 17:23 meperidine [From Demerol] AdvReac Severe Nausea Verified 09/23/21 17:23 bupropion AdvReac Mild GI upset Verified 09/23/21 17:23 AMBER Inhibitors AdvReac Unknown COUGH Verified 09/23/21 17:23 alendronate sodium AdvReac Unknown GI Distress Verified 09/23/21 17:23 clarithromycin AdvReac Unknown intolerant Verified 09/23/21 17:23 paroxetine AdvReac Unknown Diarrhea Verified 09/23/21 17:23 General JORDAN: 3 Review of Systems Constitutional Constitutional: Denies fatigue, Denies fever(s) and Reports headache(s) Eyes Eyes: Denies change in vision ENT Ears, Nose, Mouth, and Throat: Reports headache(s) and Denies neck pain Cardiovascular Cardiovascular: Denies chest pain and Denies dyspnea Respiratory Respiratory: Denies cough and Denies dyspnea Gastrointestinal Gastrointestinal: Reports abdominal pain, Denies constipation, Denies diarrhea, Reports nausea and Reports vomiting Genitourinary Genitourinary: Denies dysuria Musculoskeletal Musculoskeletal: Reports back pain and Denies neck pain Integumentary/Breasts Skin/Breast: Denies rash Neurologic Neurologic: Reports headache(s) Endocrine Endocrine: Denies fatigue Hematologic/Lymphatic Hematologic/Lymphatic: Denies easy bleeding PFSH All Active Problems (Updated 09/23/21 @ 19:46 by CELINA Kidd) Hypokalemia (Acute) Pulmonary mass (Acute) spiculated mass Pneumonia (Acute) Nausea & vomiting (Acute) Abdominal pain (Acute) Depression with suicidal ideation (Acute) Alcohol intoxication (Acute) Alcohol abuse (Acute) Diarrhea (Acute) Epigastric pain (Acute) Nausea and vomiting (Acute) Dehydration (Acute) Hypokalemia (Acute) Discharge planning issues (Acute) C. difficile colitis (Acute) Palliative care patient (Acute) Difficult intravenous access (Acute) Multiple IV attempts, usually requires ultrasound placement. Pancreatitis (Chronic) PTSD (post-traumatic stress disorder) (Acute) Anemia (Chronic) Depression (Chronic) Foot pain, right (Acute) T12 compression fracture (Acute) Presacral mass (Chronic) Deviated nasal septum (Acute) Frequent falls (Chronic) Head injury (Acute) Transaminitis (Acute) Ambulatory dysfunction (Chronic) Shoulder pain, right (Chronic) DVT prophylaxis (Acute) Suicidal ideation (Acute) Dry eye (Acute) Pruritus (Acute) Dystrophic nail (Acute) AMBER (acute kidney injury) (Acute) Iron deficiency anemia (Chronic) Alcohol abuse (Chronic) Hypomagnesemia (Chronic) Discharge planning issues (Acute) UTI (urinary tract infection) (Acute) Fall (Acute) Atelectasis of left lung (Chronic) Advance directive on file (Acute) Nodule of upper lobe of right lung (Acute ~09/13/18) 09/13/18 [facility]; 12mm SPICULATED -kb Cataract (Chronic 11/07/15) Hypertension (Chronic) high today; she will check readings at home Hyperlipidemia (Chronic) Back pain, chronic (Chronic) Depression (Chronic) Osteopenia (Chronic) Medical History Acute alcoholism Acute UTI Adjustment disorder with depressed mood AMBER (acute kidney injury) Alcohol intoxication Alcohol intoxication Alcoholic gastritis without bleeding Alcoholic ketosis Allergic rhinitis Anemia Blunt head trauma Blunt trauma of multiple sites of trunk Calcific tendinitis of left shoulder CAP (community acquired pneumonia) Cervical radicular pain neck pain and DJD [facility] clinic Cervical strain 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) pls refrain from alcohol Chronic alcoholism she will not stop drinking unless she checks with me, so that we can help her avert withdrawal I do not think she is capable on her own--she would need placement to achieve required goal of 3 months of sobriety Chronic diarrhea Closed displaced fracture of proximal phalanx of right index finger with routine healing (06/03/17) Closed right humeral fracture Contusion of left little finger Corneal ulcer, right (~08/23/18) 08/23/18; [facility] Dehydration Elev transaminase/LDH due to alcohol Epigastric abdominal pain Facial fracture due to fall Facial laceration Fall as cause of accidental injury at home as place of occurrence Fall at home Fracture of humerus, left, closed Genital herpes simplex recurrent gential; suppressive Valtrex GERD (gastroesophageal reflux disease) GI bleed (12/20/16) Head contusion Headache History of alcohol abuse Humerus fracture (09/12/19) Right Hypertension Hypokalemia Hypokalemia Hypomagnesemia Incidental lung nodule, greater than or equal to 8mm 1cm, spiculated, stable for many years, recommend f/u in 6 mo Intractable vomiting Leukopenia Macrocytosis (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 Multiple contusions Multiple fractures of ribs Multiple rib fractures 03/11/19 [facility] Non-cardiac chest pain (09/21/16) [facility] [place] 09/21/16 NEGATIVE MP Osteoarthritis Palliative care patient (03/21/17) Pancreatitis, alcoholic, acute Peripheral edema Photophobia of right eye Pleural effusion on left 03/11/19 [facility] Pneumonia Presacral mass (~09/15/18) 09/15/18 [facility] Rash Rib pain on right side Right rib fracture Sacral mass Sciatica right, epidural injuections PainCare Suicidal ideation Tendinitis of left rotator cuff Tubular adenoma of colon (01/28/17) Urinary incontinence 01/24/13 urethral suspension and sling at [facility] [place] (bladder suspension 1991) UTI (urinary tract infection) UTI (urinary tract infection) 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 Bladder repair. Ligation of fallopian tube Repair bladder injury, simple Family History Mother No problems noted. Father , DROWNED at age 50. No problems noted. Sister Personal history of malignant neoplasm MELANOMA Sister No problems noted. Grandfather Personal history of malignant neoplasm STOMACH Grandfather Personal history of malignant neoplasm PROSTATE Grandmother Heart disease [place] Acute ill-defined cerebrovascular disease Grandmother Personal history of malignant neoplasm UTERINE Aunt , [place] Heart disease [place] Aunt , [place] Heart disease Brother No problems noted. Social History (Reviewed 09/23/21 @ 19:43 by KENNEDY Kidd Smoking/Tobacco Use Status: Former Tobacco Use Quit Date: 08/05/20 Smoking risk assessment performed?: Yes Alcohol Intake: current Alcohol Intake frequency: 3 or more drinks per day Alcohol type: hard liquor Drug use: Never Substance use type: does not use Details: trevin Current gender identity: female Do you feel safe at home: Yes Do you feel safe in your relationship?: Yes Exam Const General: cooperative, comfortable and no acute distress Orientation: alert, awake and oriented x3 HENOH Head: normal to inspection, normocephalic and atraumatic Face and sinus: normal facial exam Mouth: moist mucous membranes abnormal (Slightly dry) Eyes General: appearance normal, both eyes and all related structures Conjunctivae: conjunctivae normal Neck Neck: normal visual inspection, full ROM, trachea midline, supple and nontender Resp Effort & Inspection: normal respiratory effort and able to speak in complete sentences Auscultation: clear to auscultation bilaterally Cardio Rate: regular rate Rhythm: regular rhythm GI Inspection: normal to inspection Palpation: soft, not firm, no guarding, no pulsatile masses and nontender Auscultation: normal bowel sounds Back/Spine/Pelvis Back: No back tenderness Skin General skin exam: no rashes or lesions noted Neuro General: patient alert, patient awake, patient oriented x3, moves all extremities and no focal motor deficits Cranial Nerves: CN's II-XI intact bilaterally Cognition: normal cognition Speech: speech normal Motor: muscle tone normal throughout Sensory Exam: no sensory deficits noted Extrem General: normal to inspection, full ROM, capillary refill normal, no pedal edema and no calf tenderness Psych Appearance: grossly normal Mental Status: mental status grossly normal
[2021-09-23] MEDS: Normal Saline 1,000 ML 1000 ML IV (17:34)
[2021-09-23 17:38] LABS: Abs Immature Grans 0.04 10^3/uL (0.0-0.06); Absolute Basophil Count 0.03 10^3/uL (0.0-0.2); Absolute Lymphocyte Count 1.27 10^3/uL (1.2-3.4); Absolute Monocyte Count 0.42 10^3/uL (0.1-0.8); Absolute Neutrophil Count 5.06 10^3/uL (1.2-6.7); Basophils % 0.4; HCT 39.7 % (36.0-46.0); HGB 12.5 g/dL (11.2-15.7); Immature Grans % 0.6; Lymphocytes % 18.6; MCHC 31.5 % (32.0-36.0); MCV 107.9 fL (80-95); MPV 8.9 fL (8.0-11.0); Monocytes % 6.2; Neutrophils % 74.2; Nucleated RBC 0 %; Platelet Count 179 10^3/uL (130-400); RBC 3.68 10^6/uL (3.93-5.22); RDW 13.2 % (11.7-14.6); RDW-SD 52.9 fL; WBC 6.82 10^3/uL (4.4-10.8)
[2021-09-23] MEDS: Ondansetron 4 MG/2 ML VIAL IVP (17:40)
--- NOTE | 2021-09-23 17:45 | RT.EKG_ITS ---
APPROVED REPORT Exam: Resting ECG Reason for Exam: Hypokalemia Patient Location: E HR:87 bpm ECG Measurements Heart Rate 87 AXIS ND 211 P 52 QRSd 90 QRS -30 QT 417 T -6 QTc 503 Conclusion Sinus rhythm...normal P axis, V-rate 60- 99 Inferior infarct, old...Q >35mS, II III aVF Prolonged QT interval...QTc >500mS
[2021-09-23 17:49] LABS: Diff Comment Agrees w/ Instrument
[2021-09-23 17:50] LABS: Macrocytosis 2+
[2021-09-23 17:51] LABS: ALT 44 U/L (14-59); AST 136 U/L (15-37); Albumin 3.3 g/dL (3.4-5.0); Alkaline Phosphatase 283 U/L (46-116); Anion Gap 13.4 mmol/L (3-11); BUN 10 mg/dL (7-18); Bilirubin, Total 1.2 mg/dL (0.2-1.0); CO2 27.6 mmol/L (21.0-32.0); CREATININE 0.7 mg/dL (0.55-1.02); Calcium 9.7 mg/dL (8.5-10.1); Chloride 100 mmol/L (98-107); Glucose 110 mg/dL (74-106); Lipase 39 U/L (73-393); Magnesium 1.6 mg/dL (1.8-2.4); Sodium 141 mmol/L (136-145); Total Protein 8.2 g/dL (6.4-8.2)
[2021-09-23 17:53] LABS: Potassium 2.9 mmol/L (3.5-5.1)
[2021-09-23] MEDS: Potassium Chloride 20 MEQ TABCR 40 MEQ PO (18:11)
[2021-09-23] MEDS: MAGNESIUM SULFATE 1 GM/100 ML BAG IVPB (18:12)
[2021-09-23 18:59] LABS: Bilirubin Negative (Negative); Blood Trace-intact (Negative); Clarity Sl Cloudy (Clear); Glucose Negative (Negative); Ketones Trace mg/dL (Negative); Leukocyte Esterase Small (Negative); Nitrite Negative (Negative); Specific Gravity >= 1.030 (1.005-1.025)
[2021-09-23 19:06] LABS: WBC >50 HPF (0-5)
[2021-09-23 19:07] LABS: Bacteria Many HPF (Negative); C & S Indicated? Yes; Crystals Many Amorphous HPF (Negative)
[2021-09-23] MEDS: MacroBID 100 MG CAP PO (19:18)
[2021-09-23] MEDS: POTASSIUM CHLORIDE 10 MEQ/100 ML BAG 100 MEQ IVPB (19:19)
[2021-09-23] MEDS: Ondansetron O.D.T. 4 MG TABEF, 3 TABS/BTL PO (19:45)
[2021-09-23] MEDS: MacroBID 100 MG CAP (19:55)
== END 2021-09-23 19:56 | disposition home or self-care (01) ==
LOC: ER 19:49
PROVIDERS: Emergency Provider Physician Assistant; PCP Family Medicine
DX: R11.2 Nausea with vomiting, unspecified (principal); E87.6 Hypokalemia; E83.42 Hypomagnesemia; N39.0 Urinary tract infection, site not specified; B96.20 Unspecified Escherichia coli [E. coli] as the cause of diseases classified elsewhere; F10.20 Alcohol dependence, uncomplicated; F10.129 Alcohol abuse with intoxication, unspecified; Y90.7 Blood alcohol level of 200-239 mg/100 ml
CPT/HCPCS: 80053; 83690; 87077; 93005; 96361; 96365; 96367; 96375; 99284; 80320; 81003; 81015; 83735; 85025; 87086; 87186; 93010; J2405; J3475; J3480

== ENCOUNTER 2021-10-09 08:59 | Emergency (ER) | payer MEDICARE, SELFPAY ==
[2021-10-09] VITALS (20 sets, daily range): BP systolic 167–201; BP diastolic 79–133; PULSE 109–133; RESP 13–30; TEMP 36.6; O2SAT 93–98
--- NOTE | 2021-10-09 09:15 | DI.CT_ITS ---
Exam(s) CT ABDOMEN PELVIS W EXAM: CT ABDOMEN PELVIS W CLINICAL HISTORY: N/V LUQ pain Concern of possible pancreatitis TECHNIQUE: Imaging Protocol: Axial computed tomography images with coronal and sagittal reformatted images were created and reviewed CONTRAST MATERIAL: Intravenous: Omnipaque 350 Contrast volume:100 mL Oral: No COMPARISON: CT CT ABDOMEN PELVIS W from 07/26/2021 FINDINGS: ABDOMEN: Lung Bases: Coronary artery calcifications are present. There is a small hiatal hernia. Liver: There is diffuse decreased attenuation of the liver consistent with fatty infiltration. No me asurable mass. Portal, Superior Mesenteric, and Splenic Veins: Unremarkable. Gallbladder and Biliary Tract: There does appear to be some soft tissue in the dependent portion of t he gallbladder which may represent stones. This may also represent sludge. No biliary ductal dilata tion. Ultrasound may be considered for evaluation of the gallbladder. Pancreas: Normal density, no abnormal calcifications or inflammatory process. Spleen: Normal. Adrenals: There is mild nodularity of the left adrenal gland. This appears stable. The right adrena l gland is unremarkable. Kidneys: Normal size, contour and axis. There is bilateral nephrolithiasis. No hydronephrosis. Ther e are cysts seen in the kidneys bilaterally. Abdominal Aorta: Abdominal portion non-dilated. Atherosclerosis. Bowel: No obstruction or bowel wall thickening. Appendix is unremarkable. Peritoneal Cavity: No ascites, collection or mesenteric inflammatory response. No free air.There has been no change in the presacral soft tissue mass compared to the prior examination. Lymph Nodes: Within normal limits. Bones: Within normal limits for the patient's age. There are old healed bilateral rib fractures. Soft Tissues: Unremarkable. PELVIS: Bladder: There is diffuse thickening of the wall of the urinary bladder. Cystitis should be considere d. The bladder is underdistended which may also create this appearance. Reproductive Organs: Unremarkable as visualized. There has been no change in appearance of the left o vary. Lymph Nodes: Within normal limits. Bones: Within normal limits for the patient's age. IMPRESSION: 1. Soft tissue debris seen in the dependent portion of the gallbladder which may represent stones or sludge. Gallbladder ultrasound may be obtained for further evaluation. There is no biliary ductal dil atation. 2. Unremarkable pancreas and peripancreatic soft tissues. 3. Stable presacral mass. 4. Diffuse thickening of the wall of the urinary bladder. This may be due to underdistention. Cystiti s cannot be excluded. 5. Results of this exam have been verbally communicated with provider. RADIATION DOSE DELIVERED: 843.04mGy.cm Total DLP DATA REPOSITORY: All CT scans at this facility are submitted to the National Radiology Data Registry (NRDR) Dose Index Registry (DIR) with the [employer] (A[employer]). RADIATION OPTIMIZATION: All CT scans at this facility use at least one of these dose optimization te chniques: automated exposure control; mA and/or kV adjustment per patient size (includes targeted exa ms where dose is matched to clinical indication); or iterative reconstruction.
[2021-10-09] MEDS: Normal Saline Flush 10 ML SYR IVP (09:32)
[2021-10-09] MEDS: Ondansetron 4 MG/2 ML VIAL IVP (09:32)
[2021-10-09 09:33] LABS: Abs Immature Grans 0.04 10^3/uL (0.0-0.06); Absolute Basophil Count 0.04 10^3/uL (0.0-0.2); Absolute Lymphocyte Count 0.67 10^3/uL (1.2-3.4); Absolute Monocyte Count 0.43 10^3/uL (0.1-0.8); Absolute Neutrophil Count 6.06 10^3/uL (1.2-6.7); Basophils % 0.6; HCT 37.3 % (36.0-46.0); HGB 11.7 g/dL (11.2-15.7); Immature Grans % 0.6; Lymphocytes % 9.3; MCHC 31.4 % (32.0-36.0); MCV 108.4 fL (80-95); MPV 9.1 fL (8.0-11.0); Monocytes % 5.9; Neutrophils % 83.6; Nucleated RBC 0 %; Platelet Count 137 10^3/uL (130-400); RBC 3.44 10^6/uL (3.93-5.22); RDW-SD 52.2 fL; WBC 7.24 10^3/uL (4.4-10.8)
[2021-10-09 09:50] LABS: PHOSPHORUS 2.9 mg/dL (2.6-4.7)
[2021-10-09 09:55] LABS: ALT 38 U/L (14-59); AST 116 U/L (15-37); Albumin 3.5 g/dL (3.4-5.0); Alkaline Phosphatase 279 U/L (46-116); Anion Gap 19.6 mmol/L (3-11); BUN 15 mg/dL (7-18); Bilirubin, Total 1.9 mg/dL (0.2-1.0); CO2 21.4 mmol/L (21.0-32.0); CREATININE 0.8 mg/dL (0.55-1.02); Calcium 10.1 mg/dL (8.5-10.1); Chloride 98 mmol/L (98-107); ETHANOL BLOOD 43.3 mg/dL (<10); Glucose 128 mg/dL (74-106); Lipase 40 U/L (73-393); Magnesium 1.7 mg/dL (1.8-2.4); Potassium 3.7 mmol/L (3.5-5.1); Sodium 139 mmol/L (136-145); Troponin I < 50 ng/L (<or=60)
[2021-10-09 09:55] LABS: Bilirubin Small (Negative); Blood Moderate (Negative); Clarity Cloudy (Clear); Glucose Negative (Negative); Ketones 40 mg/dL (Negative); Leukocyte Esterase Small (Negative); Nitrite Negative (Negative); Specific Gravity 1.025 (1.005-1.025)
[2021-10-09] MEDS: MAGNESIUM SULFATE 8.12 MEQ, MULTIVITAMIN 10 ML, THIAMINE 100 MG, FOLIC ACID 1 MG in Nor... 168.867 MG IV (10:03)
--- NOTE | 2021-10-09 10:03 | W.ED.GENAD ---
Discharge Plan Disposition Patient Disposition: HOME Condition: Stable Discharge Details Clinical Impression: Alcoholic gastritis, Alcohol abuse, Acute UTI, Hypertension Primary Care Provider: Lavelle Galindo ED Provider: Brian Rosales Home Meds and New Rx's Prescriptions: New sulfamethoxazole-trimethoprim [Bactrim DS] 800-160 mg tablet 1 tab PO BID 7 Days Qty: 14 0RF Continued Xiidra 5 % dropperette 1 drp ophthalmic (eye) BID 0RF Rx Instructions: administer approximately 12 hours apart venlafaxine 75 mg capsule,extended release 24hr 75 mg PO DAILY Qty: 90 11RF mirtazapine 7.5 mg tablet 7.5 mg PO QHS Qty: 90 4RF buspirone 5 mg tablet 5 mg PO BID Qty: 60 5RF Ensure Active High Protein Liquid 414 ml PO DAILY Qty: 73284 11RF multivitamin [Multiple Vitamins] Tablet 1 tab PO DAILY Qty: 90 3RF thiamine HCl (vitamin B1) 100 mg tablet 100 mg PO DAILY Qty: 90 3RF folic acid 1 mg tablet 1 mg PO DAILY Qty: 90 3RF sucralfate 1 gram tablet 1 g PO BID Qty: 60 11RF nitrofurantoin monohyd/m-cryst [Macrobid] 100 mg capsule 100 mg PO BID Qty: 14 0RF Rx Instructions: must administer with a meal/food ondansetron 4 mg tablet,disintegrating 4 mg PO Q8H PRN (Reason: nausea and vomiting) Qty: 20 0RF No Action carboxymethylcellulose sodium [Refresh Plus] 0.5 % Dropperette 1 drp OU Q4H WHILE AWAKE Qty: 30 0RF Label Comments: 08/15/19 pt states that she took her blister pack of meds but that she vomited them up Discharge Instructions Additional Instructions: It is important that you take your medication as prescribed and I have refilled your Zofran and started you on an antibiotic for urinary tract infection. It is noted today that you have elevated blood pressure and this may be due to you stopping your blood pressure medication for the past month due to side effects. Please follow-up with your primary care provider for recheck of your blood pressure and or resume your medication as serious and potential life-threatening effects of continuous elevated blood pressure may occur if you stop your medication. If you have any new or significant worsening of symptoms or change in your condition please feel free to return to the emergency department otherwise follow-up with your primary care provider for reassessment and further evaluation as needed. Many of your complaints today are secondary to significant intake of alcohol and its effects on your body. It is recommended that you speak to your primary care provider about alcohol cessation if you are interested. Referrals: Lavelle Galindo MD [Primary Care Provider] - 1 week (For reevaluation of your condition.) Discharge Data Discharge Date/Time-TO BE ENTERED AT DEPARTURE: 10/09/21 14:08 Medical Decision Making <Brian ALONZO Rosales - Last Filed: 10/12/21 08:16> Patient presenting to the emergency department via EMS for chief complaint of nausea vomiting and abdominal pain. She states that this is been going on for approximately 4 days with inability to tolerate p.o. intake. Patient states chills but denies any fever. Patient is well-known to emergency department with significant history of alcohol abuse. Physical exam is pertinent for abdominal tenderness and guarding specifically to the left upper quadrant and some in the epigastrium where patient notes most pain. Given history of alcohol abuse I am concerned for pancreatitis given history. Plan to check labs along with CT imaging. Patient is hypertensive and tachycardic on initial examination. Patient ordered Zofran, Ativan, and banana bag pending results. I personally interviewed and evaluated the patient at the bedside. I agree with Mr. Rosales's assessment and plan. Please see his notes. Pending laboratory results patient caregiver at home did call and contact us and stated that patient actually has had alcohol intake this morning. Patient denies any withdrawal type seizures but did state that she had not drank in a couple days. Labs reveal a baseline anemia without significant marked change. Elevated anion gap and slightly decreased magnesium otherwise electrolytes are within normal limits. For liver function patient has abnormalities that are not significantly changed from previous visits. Urinalysis does show signs of urinary tract infection and culture was ordered per protocol. Verbal report was received from radiologist and stated no acute findings noted except for bladder wall thickening that may be consistent with cystitis. 1115 Given otherwise stable presentation and evaluation I do feel that patient can be safely discharged home if able to tolerate p.o. intake and medications. Did discuss plan of care with patient which she is agreeable to at this time so will p.o. challenge patient and plan for discharge. Patient was able to tolerate p.o. intake along with ambulate using cane/slight assistance which is at her baseline. Patient reports feeling well enough to return home and was discharged in stable condition. Lab Data Labs: 10/09/21 09:50 Urine - Reflex from Ua Urine Culture - Preliminary Escherichia coli Gram Negative Rob#2 Gram Positive Lashonda,Mixed Laboratory Tests Range/Units 10/09/21 10/09/21 10/09/21 09:02 09:25 09:25 WBC (4.4-10.8) 10^3/uL 7.24 RBC (3.93-5.22) 10^6/uL 3.44 L Hgb (11.2-15.7) g/dL 11.7 Hct (36.0-46.0) % 37.3 MCV (80-95) fL 108.4 H MCH (27.0-33.0) pg 34.0 H MCHC (32.0-36.0) % 31.4 L RDW (11.7-14.6) % 13.0 Plt Count (130-400) 10^3/uL 137 MPV (8.0-11.0) fL 9.1 Immature Gran % 0.6 Neutrophils % 83.6 Lymphocytes % 9.3 Monocytes % 5.9 Eosinophils % 0.0 Basophils % 0.6 Nucleated RBC % % 0 Absolute Neutrophils (1.2-6.7) 10^3/uL 6.06 Absolute Lymphocytes (1.2-3.4) 10^3/uL 0.67 L Absolute Monocytes (0.1-0.8) 10^3/uL 0.43 Absolute Eosinophils (0.0-0.7) 10^3/uL 0.00 Absolute Basophils (0.0-0.2) 10^3/uL 0.04 PT Cancelled INR Cancelled APTT Cancelled Sodium (136-145) mmol/L 139 Potassium (3.5-5.1) mmol/L 3.7 Chloride (98-107) mmol/L 98 Carbon Dioxide (21.0-32.0) mmol/L 21.4 Anion Gap (3-11) mmol/L 19.6 H BUN (7-18) mg/dL 15 Creatinine (0.55-1.02) mg/dL 0.8 Estimated GFR/1.73 m2 (mL/min/1.73m2) >= 60.00 Glucose (74-106) mg/dL 128 H Calcium (8.5-10.1) mg/dL 10.1 Phosphorus (2.6-4.7) mg/dL Magnesium (1.8-2.4) mg/dL 1.7 L Total Bilirubin (0.2-1.0) mg/dL 1.9 H AST (15-37) U/L 116 H ALT (14-59) U/L 38 Alkaline Phosphatase (46-116) U/L 279 H Troponin I (<or=60) ng/L < 50 Total Protein (6.4-8.2) g/dL 8.0 Albumin (3.4-5.0) g/dL 3.5 Lipase (73-393) U/L 40 Urine Color (Yellow) Urine Clarity (Clear) Urine pH (5-8) Ur Specific Marshall (1.005-1.025) Urine Protein (Negative) mg/dL Urine Ketones (Negative) mg/dL Urine Blood (Negative) Urine Nitrite (Negative) Urine Bilirubin (Negative) Urine Urobilinogen (Up TO 0.2) EU/dL Ur Leukocyte Esterase (Negative) Urine RBC (0-2) HPF Urine WBC (0-5) HPF Ur Epithelial Cells (Negative) HPF Urine Crystals (Negative) HPF Urine Bacteria (Negative) HPF Urine Casts (Negative) LPF Urine Mucus (Negative) Ur Culture Indicated? Urine Glucose (Negative) mg/dL Ethyl Alcohol (<10) mg/dL 43.3 H Range/Units 10/09/21 10/09/21 09:25 09:50 WBC (4.4-10.8) 10^3/uL RBC (3.93-5.22) 10^6/uL Hgb (11.2-15.7) g/dL Hct (36.0-46.0) % MCV (80-95) fL MCH (27.0-33.0) pg MCHC (32.0-36.0) % RDW (11.7-14.6) % Plt Count (130-400) 10^3/uL MPV (8.0-11.0) fL Immature Gran % Neutrophils % Lymphocytes % Monocytes % Eosinophils % Basophils % Nucleated RBC % % Absolute Neutrophils (1.2-6.7) 10^3/uL Absolute Lymphocytes (1.2-3.4) 10^3/uL Absolute Monocytes (0.1-0.8) 10^3/uL Absolute Eosinophils (0.0-0.7) 10^3/uL Absolute Basophils (0.0-0.2) 10^3/uL PT INR APTT Sodium (136-145) mmol/L Potassium (3.5-5.1) mmol/L Chloride (98-107) mmol/L Carbon Dioxide (21.0-32.0) mmol/L Anion Gap (3-11) mmol/L BUN (7-18) mg/dL Creatinine (0.55-1.02) mg/dL Estimated GFR/1.73 m2 (mL/min/1.73m2) Glucose (74-106) mg/dL Calcium (8.5-10.1) mg/dL Phosphorus (2.6-4.7) mg/dL 2.9 Magnesium (1.8-2.4) mg/dL Total Bilirubin (0.2-1.0) mg/dL AST (15-37) U/L ALT (14-59) U/L Alkaline Phosphatase (46-116) U/L Troponin I (<or=60) ng/L Total Protein (6.4-8.2) g/dL Albumin (3.4-5.0) g/dL Lipase (73-393) U/L Urine Color (Yellow) Yellow Urine Clarity (Clear) Cloudy Urine pH (5-8) 7.0 Ur Specific Marshall (1.005-1.025) 1.025 Urine Protein (Negative) mg/dL 100 H Urine Ketones (Negative) mg/dL 40 H Urine Blood (Negative) Moderate H Urine Nitrite (Negative) Negative Urine Bilirubin (Negative) Small H Urine Urobilinogen (Up TO 0.2) EU/dL 2.0 H Ur Leukocyte Esterase (Negative) Small H Urine RBC (0-2) HPF 20-50 H Urine WBC (0-5) HPF 5-10 Ur Epithelial Cells (Negative) HPF Rare Urine Crystals (Negative) HPF Moderate Triple Phos Urine Bacteria (Negative) HPF Many Urine Casts (Negative) LPF Negative Urine Mucus (Negative) Negative Ur Culture Indicated? Yes Urine Glucose (Negative) mg/dL Negative Ethyl Alcohol (<10) mg/dL <Moose Lafleur MD - Last Filed: 10/09/21 10:17> I personally interviewed and evaluated the patient at the bedside. I agree with Mr. Rosales's assessment and plan. Please see his notes. HPI <Brian ALONZO Rosales - Last Filed: 10/12/21 08:16> General Date/Time Provider Initiated Documentation: 10/09/21 09:00. History of Present Illness 76 year old F presents to the emergency department with the chief complaint of Abdominal pain, nausea vomiting, described as moderate and similar to prior episodes, with intensity rated at 8. Quality is described as aching and sharp, and is localized to the abdomen (LUQ). Patient reports radiation to (Epigastrium). Patient started experiencing this day(s) (4) and it has been constant. improves with No relieving factors improve symptom(s), Eating worsens symptoms . Patient notes nausea/vomiting; denies chest pain, cough, headaches and seizure. Patient did receive the following treatments prior to arrival, none Related Data Home Medications Medication Instructions Recorded Confirmed carboxymethylcellulose sodium 0.5 1 drp OU Q4H WHILE AWAKE #30 each 06/20/19 10/09/21 % eye drops in a dropperette (Refresh Plus) food supplemt, lactose-reduced 414 ml PO DAILY #33957 ml 08/24/19 10/09/21 (Ensure Active High Protein) lifitegrast 5 % eye drops in a 1 drp OPHTHALMIC (EYE) BID 08/05/20 10/09/21 dropperette (Xiidra) folic acid 1 mg tablet 1 mg PO DAILY #90 tab 09/05/20 10/09/21 multivitamin (Multiple Vitamins) 1 tab PO DAILY #90 tab 09/05/20 10/09/21 thiamine HCl (vitamin B1) 100 mg 100 mg PO DAILY #90 tab 09/05/20 10/09/21 tablet sucralfate 1 gram tablet 1 g PO BID #60 tab 06/11/21 10/09/21 buspirone 5 mg tablet 5 mg PO BID #60 tab 08/05/21 10/09/21 mirtazapine 7.5 mg tablet 7.5 mg PO QHS #90 tab 08/05/21 10/09/21 venlafaxine 75 mg capsule,extended 75 mg PO DAILY #90 cap 08/05/21 10/09/21 release 24 hr nitrofurantoin 100 mg PO BID #14 cap 09/23/21 10/09/21 monohydrate/macrocrystals 100 mg capsule (Macrobid) ondansetron 4 mg disintegrating 4 mg PO Q8H PRN #20 tab 10/09/21 tablet sulfamethoxazole 800 1 tab PO BID 7 Days #14 tab 10/09/21 mg-trimethoprim 160 mg tablet (Bactrim DS) Previous Rx's Medication Instructions Recorded carboxymethylcellulose sodium 0.5 1 drp OU Q4H WHILE AWAKE #30 each 06/20/19 % eye drops in a dropperette (Refresh Plus) food supplemt, lactose-reduced 414 ml PO DAILY #33892 ml 08/24/19 (Ensure Active High Protein) folic acid 1 mg tablet 1 mg PO DAILY #90 tab 09/05/20 multivitamin (Multiple Vitamins) 1 tab PO DAILY #90 tab 09/05/20 thiamine HCl (vitamin B1) 100 mg 100 mg PO DAILY #90 tab 09/05/20 tablet sucralfate 1 gram tablet 1 g PO BID #60 tab 06/11/21 buspirone 5 mg tablet 5 mg PO BID #60 tab 08/05/21 mirtazapine 7.5 mg tablet 7.5 mg PO QHS #90 tab 08/05/21 venlafaxine 75 mg capsule,extended 75 mg PO DAILY #90 cap 08/05/21 release 24 hr nitrofurantoin 100 mg PO BID #14 cap 09/23/21 monohydrate/macrocrystals 100 mg capsule (Macrobid) ondansetron 4 mg disintegrating 4 mg PO Q8H PRN #20 tab 10/09/21 tablet sulfamethoxazole 800 1 tab PO BID 7 Days #14 tab 10/09/21 mg-trimethoprim 160 mg tablet (Bactrim DS) Allergies Allergy/AdvReac Type Severity Reaction Status Date / Time Penicillins Allergy Mild Rash Verified 10/09/21 09:06 ramipril Allergy Unknown ITCHING Verified 10/09/21 09:06 meperidine [From Demerol] AdvReac Severe Nausea Verified 10/09/21 09:06 bupropion AdvReac Mild GI upset Verified 10/09/21 09:06 AMBER Inhibitors AdvReac Unknown COUGH Verified 10/09/21 09:06 alendronate sodium AdvReac Unknown GI Distress Verified 10/09/21 09:06 clarithromycin AdvReac Unknown intolerant Verified 10/09/21 09:06 paroxetine AdvReac Unknown Diarrhea Verified 10/09/21 09:06 General Stated Complaint: ETOHWithdr JORDAN: 3 Review of Systems <Brian Rosales NP - Last Filed: 10/12/21 08:16> Constitutional Constitutional: Denies chills, Denies fever(s), Denies headache(s) and Reports poor appetite ENT Ears, Nose, Mouth, and Throat: Denies headache(s) Cardiovascular Cardiovascular: Denies chest pain, Denies syncope and Denies dyspnea Respiratory Respiratory: Denies cough and Denies dyspnea Gastrointestinal Gastrointestinal: Reports as per HPI, Reports abdominal pain, Denies melena, Denies change in bowel habits, Denies constipation, Denies diarrhea, Reports nausea, Reports vomiting and Denies hematemesis Genitourinary Genitourinary: Denies hematuria, Denies urinary incontinence, Denies urinary hesitancy and Denies urinary urgency Integumentary/Breasts Skin/Breast: Denies rash Neurologic Neurologic: Denies confusion, Denies syncope, Denies headache(s) and Denies seizure-like activity Psychiatric Psychiatric: Denies confusion PFS <Brian Rosales NP - Last Filed: 10/12/21 08:16> All Active Problems (Updated 10/09/21 @ 11:30 by Brian Rosales NP) Hypokalemia (Acute) Alcoholic gastritis (Acute) Acute UTI (Acute) Pulmonary mass (Acute) spiculated mass Pneumonia (Acute) Nausea & vomiting (Acute) Abdominal pain (Acute) Depression with suicidal ideation (Acute) Alcohol intoxication (Acute) Alcohol abuse (Acute) Diarrhea (Acute) Epigastric pain (Acute) Nausea and vomiting (Acute) Dehydration (Acute) Hypokalemia (Acute) Discharge planning issues (Acute) C. difficile colitis (Acute) Palliative care patient (Acute) Difficult intravenous access (Acute) Multiple IV attempts, usually requires ultrasound placement. Pancreatitis (Chronic) PTSD (post-traumatic stress disorder) (Acute) Anemia (Chronic) Depression (Chronic) Foot pain, right (Acute) T12 compression fracture (Acute) Presacral mass (Chronic) Deviated nasal septum (Acute) Frequent falls (Chronic) Head injury (Acute) Transaminitis (Acute) Ambulatory dysfunction (Chronic) Shoulder pain, right (Chronic) DVT prophylaxis (Acute) Suicidal ideation (Acute) Dry eye (Acute) Pruritus (Acute) Dystrophic nail (Acute) AMBER (acute kidney injury) (Acute) Iron deficiency anemia (Chronic) Alcohol abuse (Chronic) Hypomagnesemia (Chronic) Discharge planning issues (Acute) UTI (urinary tract infection) (Acute) Fall (Acute) Atelectasis of left lung (Chronic) Advance directive on file (Acute) Nodule of upper lobe of right lung (Acute ~09/13/18) 09/13/18 [facility]; 12mm SPICULATED -kb Cataract (Chronic 11/07/15) Hypertension (Chronic) high today; she will check readings at home Hyperlipidemia (Chronic) Back pain, chronic (Chronic) Depression (Chronic) Osteopenia (Chronic) Medical History Acute alcoholism Acute UTI Adjustment disorder with depressed mood AMBER (acute kidney injury) Alcohol intoxication Alcohol intoxication Alcoholic gastritis without bleeding Alcoholic ketosis Allergic rhinitis Anemia Blunt head trauma Blunt trauma of multiple sites of trunk Calcific tendinitis of left shoulder CAP (community acquired pneumonia) Cervical radicular pain neck pain and DJD [facility] Cervical strain 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) pls refrain from alcohol Chronic alcoholism she will not stop drinking unless she checks with me, so that we can help her avert withdrawal I do not think she is capable on her own--she would need placement to achieve required goal of 3 months of sobriety Chronic diarrhea Closed displaced fracture of proximal phalanx of right index finger with routine healing (06/03/17) Closed right humeral fracture Contusion of left little finger Corneal ulcer, right (~08/23/18) 08/23/18; [facility] Dehydration Elev transaminase/LDH due to alcohol Epigastric abdominal pain Facial fracture due to fall Facial laceration Fall as cause of accidental injury at home as place of occurrence Fall at home Fracture of humerus, left, closed Genital herpes simplex recurrent gential; suppressive Valtrex GERD (gastroesophageal reflux disease) GI bleed (12/20/16) Head contusion Headache History of alcohol abuse Humerus fracture (09/12/19) Right Hypertension Hypokalemia Hypokalemia Hypomagnesemia Incidental lung nodule, greater than or equal to 8mm 1cm, spiculated, stable for many years, recommend f/u in 6 mo Intractable vomiting Leukopenia Macrocytosis (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 Multiple contusions Multiple fractures of ribs Multiple rib fractures 03/11/19 [facility] Non-cardiac chest pain (09/21/16) [facility] [place] NEGATIVE MP Osteoarthritis Palliative care patient (03/21/17) Pancreatitis, alcoholic, acute Peripheral edema Photophobia of right eye Pleural effusion on left 03/11/19 [facility] Pneumonia Presacral mass (~09/15/18) 09/15/18 [facility] Rash Rib pain on right side Right rib fracture Sacral mass Sciatica right, epidural injuections PainCare Suicidal ideation Tendinitis of left rotator cuff Tubular adenoma of colon (01/28/17) Urinary incontinence 01/24/13 urethral suspension and sling [place] [facility] [place] (bladder suspension 1991) UTI (urinary tract infection) UTI (urinary tract infection) 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 Bladder repair. Ligation of fallopian tube Repair bladder injury, simple Family History Mother No problems noted. Father , DROWNED at age 50. No problems noted. Sister Personal history of malignant neoplasm MELANOMA Sister No problems noted. Grandfather Personal history of malignant neoplasm STOMACH Grandfather Personal history of malignant neoplasm PROSTATE Grandmother Heart disease [place] Acute ill-defined cerebrovascular disease Grandmother Personal history of malignant neoplasm UTERINE Aunt , [place] Heart disease [place] Aunt , [place] Heart disease Brother No problems noted. Social History Smoking/Tobacco Use Status: Former Tobacco Use Quit Date: 08/05/20 Smoking risk assessment performed?: Yes Alcohol Intake: current Alcohol Intake frequency: 3 or more drinks per day Alcohol type: hard liquor Drug use: Never Substance use type: does not use Details: trevin Current gender identity: female Do you feel safe at home: Yes Do you feel safe in your relationship?: Yes Exam <Brian Rosales NP - Last Filed: 10/12/21 08:16> Const General: cooperative Orientation: alert, awake and oriented x3 Resp Effort & Inspection: normal respiratory effort and able to speak in complete sentences Auscultation: clear to auscultation bilaterally Cardio Rate: regular rate Rhythm: regular rhythm Heart Sounds: S1 normal and S2 normal GI Palpation: soft, not firm, guarding in the LUQ, no masses, no pulsatile masses, not rigid and tender in the epigastrum and in the LUQ Auscultation: normal bowel sounds Neuro General: patient alert, patient awake, patient oriented x3 and moves all extremities Course <Brian Rosales NP - Last Filed: 10/12/21 08:16> Vital Signs Vital signs: Vital Signs Temperature 36.6 C 10/09/21 09:02 Pulse 116 H 10/09/21 09:02 Respiratory Rate 16 10/09/21 09:02 Blood Pressure 201/101 H 10/09/21 09:02 Pulse Oximetry 97 10/09/21 09:02 Temperature 36.6 C 10/09/21 09:02 Temperature Source Skin 10/09/21 09:02 Pulse 110 H 10/09/21 09:31 Pulse 110 H 10/09/21 09:40 Respiratory Rate 20 10/09/21 09:40 Respiratory Effort 10/09/21 09:02 Respiratory Pattern Normal 10/09/21 09:16 Blood Pressure 194/100 H 10/09/21 09:31 Blood Pressure Mean 116 10/09/21 09:31 Pulse Oximetry 97 10/09/21 09:40 Oxygen Delivery Method Room Air 10/09/21 09:02 Oxygen Flow Rate 0 10/09/21 09:02 Pain Level 8 10/09/21 09:02 Lab/Test Results Lab/Test Results: Laboratory Tests Range/Units 10/09/21 10/09/21 10/09/21 09:25 09:25 09:25 WBC (4.4-10.8) 10^3/uL 7.24 RBC (3.93-5.22) 10^6/uL 3.44 L Hgb (11.2-15.7) g/dL 11.7 Hct (36.0-46.0) % 37.3 MCV (80-95) fL 108.4 H MCH (27.0-33.0) pg 34.0 H MCHC (32.0-36.0) % 31.4 L RDW (11.7-14.6) % 13.0 Plt Count (130-400) 10^3/uL 137 MPV (8.0-11.0) fL 9.1 Immature Gran % 0.6 Neutrophils % 83.6 Lymphocytes % 9.3 Monocytes % 5.9 Eosinophils % 0.0 Basophils % 0.6 Nucleated RBC % % 0 Absolute Neutrophils (1.2-6.7) 10^3/uL 6.06 Absolute Lymphocytes (1.2-3.4) 10^3/uL 0.67 L Absolute Monocytes (0.1-0.8) 10^3/uL 0.43 Absolute Eosinophils (0.0-0.7) 10^3/uL 0.00 Absolute Basophils (0.0-0.2) 10^3/uL 0.04 Sodium (136-145) mmol/L 139 Potassium (3.5-5.1) mmol/L 3.7 Chloride (98-107) mmol/L 98 Carbon Dioxide (21.0-32.0) mmol/L 21.4 Anion Gap (3-11) mmol/L 19.6 H BUN (7-18) mg/dL 15 Creatinine (0.55-1.02) mg/dL 0.8 Estimated GFR/1.73 m2 (mL/min/1.73m2) >= 60.00 Glucose (74-106) mg/dL 128 H Calcium (8.5-10.1) mg/dL 10.1 Phosphorus (2.6-4.7) mg/dL 2.9 Magnesium (1.8-2.4) mg/dL 1.7 L Total Bilirubin (0.2-1.0) mg/dL 1.9 H AST (15-37) U/L 116 H ALT (14-59) U/L 38 Alkaline Phosphatase (46-116) U/L 279 H Troponin I (<or=60) ng/L < 50 Total Protein (6.4-8.2) g/dL 8.0 Albumin (3.4-5.0) g/dL 3.5 Lipase (73-393) U/L 40 Urine Color (Yellow) Urine Clarity (Clear) Urine pH (5-8) Ur Specific Marshall (1.005-1.025) Urine Protein (Negative) mg/dL Urine Ketones (Negative) mg/dL Urine Blood (Negative) Urine Nitrite (Negative) Urine Bilirubin (Negative) Urine Urobilinogen (Up TO 0.2) EU/dL Ur Leukocyte Esterase (Negative) Urine Glucose (Negative) mg/dL Ethyl Alcohol (<10) mg/dL 43.3 H Range/Units 10/09/21 09:50 WBC (4.4-10.8) 10^3/uL RBC (3.93-5.22) 10^6/uL Hgb (11.2-15.7) g/dL Hct (36.0-46.0) % MCV (80-95) fL MCH (27.0-33.0) pg MCHC (32.0-36.0) % RDW (11.7-14.6) % Plt Count (130-400) 10^3/uL MPV (8.0-11.0) fL Immature Gran % Neutrophils % Lymphocytes % Monocytes % Eosinophils % Basophils % Nucleated RBC % % Absolute Neutrophils (1.2-6.7) 10^3/uL Absolute Lymphocytes (1.2-3.4) 10^3/uL Absolute Monocytes (0.1-0.8) 10^3/uL Absolute Eosinophils (0.0-0.7) 10^3/uL Absolute Basophils (0.0-0.2) 10^3/uL Sodium (136-145) mmol/L Potassium (3.5-5.1) mmol/L Chloride (98-107) mmol/L Carbon Dioxide (21.0-32.0) mmol/L Anion Gap (3-11) mmol/L BUN (7-18) mg/dL Creatinine (0.55-1.02) mg/dL Estimated GFR/1.73 m2 (mL/min/1.73m2) Glucose (74-106) mg/dL Calcium (8.5-10.1) mg/dL Phosphorus (2.6-4.7) mg/dL Magnesium (1.8-2.4) mg/dL Total Bilirubin (0.2-1.0) mg/dL AST (15-37) U/L ALT (14-59) U/L Alkaline Phosphatase (46-116) U/L Troponin I (<or=60) ng/L Total Protein (6.4-8.2) g/dL Albumin (3.4-5.0) g/dL Lipase (73-393) U/L Urine Color (Yellow) Yellow Urine Clarity (Clear) Cloudy Urine pH (5-8) 7.0 Ur Specific Marshall (1.005-1.025) 1.025 Urine Protein (Negative) mg/dL 100 H Urine Ketones (Negative) mg/dL 40 H Urine Blood (Negative) Moderate H Urine Nitrite (Negative) Negative Urine Bilirubin (Negative) Small H Urine Urobilinogen (Up TO 0.2) EU/dL 2.0 H Ur Leukocyte Esterase (Negative) Small H Urine Glucose (Negative) mg/dL Negative Ethyl Alcohol (<10) mg/dL PAWSS <Brian Rosales NP - Last Filed: 10/12/21 08:16> Have you Been Recently Intoxicated or Drunk Within the Last 30 days?: Yes Have you Ever Experienced Previous Episodes of Alcohol Withdrawal?: Yes Result: 2 <Moose Lafleur MD - Last Filed: 10/09/21 10:17> Result: 2
[2021-10-09 10:04] LABS: Epithelial Cells Rare HPF (Negative); RBC 20-50 HPF (0-2)
[2021-10-09 10:05] LABS: Bacteria Many HPF (Negative); C & S Indicated? Yes; Casts Negative LPF (Negative); Crystals Moderate Triple Phos HPF (Negative); Mucus Negative (Negative)
[2021-10-09] MEDS: Omnipaque 350 MG/ML 100 ML BTL IJ (10:40)
[2021-10-09] MEDS: LORazepam 2 MG/ML VIAL 1 MG IVP (10:48)
--- NOTE | 2021-10-09 13:25 | NUR.NOTE ---
Nursing Note: Pt ate 50% of lunch without N/V. Ambulated in room with 1 person assist
[2021-10-09] MEDS: Ondansetron O.D.T. 4 MG TABEF PO (14:02)
[2021-10-09] MEDS: Ondansetron O.D.T. 4 MG TABEF, 3 TABS/BTL PO (14:04)
[2021-10-09] MEDS: Sulfameth/Trimeth DS, 2 TABS/BTL 1 TAB PO (14:04)
== END 2021-10-09 14:08 | disposition home or self-care (01) ==
PROVIDERS: Emergency Provider Nurse Practitioner Family; PCP Family Medicine
DX: K29.20 Alcoholic gastritis without bleeding (principal); F10.20 Alcohol dependence, uncomplicated; N39.0 Urinary tract infection, site not specified; B96.20 Unspecified Escherichia coli [E. coli] as the cause of diseases classified elsewhere; R10.12 Left upper quadrant pain; I10 Essential (primary) hypertension
CPT/HCPCS: 36415; 80053; 83690; 87077; 99285; 74177; 80320; 81003; 81015; 83735; 84100; 84484; 85025; 85610; 85730; 87086; 87186; 99284; J2060; J2405; J3490

== ENCOUNTER 2021-10-12 08:31 | Emergency (ER) | payer MEDICARE, SELFPAY ==
[2021-10-12] VITALS (17 sets, daily range): BP systolic 158–188; BP diastolic 78–97; PULSE 101–112; RESP 10–23; TEMP 36.4; O2SAT 92–99
--- NOTE | 2021-10-12 08:30 | DI.US_ITS ---
Exam(s) US ABDOMEN LIMITED EXAM: US ABDOMEN LIMITED CLINICAL HISTORY: Eval of gallbladder TECHNIQUE: Ultrasound abdomen performed using standard protocol. COMPARISON: US US OR ANESTHESIA from 04/17/[address] ABDOMEN PELVIS W from 10/09/2021 FINDINGS: As per request, this study was limited to the gallbladder/biliary tree. CT scan 10/09/2021 was revie wed. GALLBLADDER/BILIARY: There are multiple small gallstones as well as sludge in the gallbladder lumen a s well as at the level the gallbladder neck. No pericholecystic fluid. The common hepatic duct isupper normal, measuring 6mm at the level of yamileth hepatis. IMPRESSION: 1. Cholelithiasis. Multiple gallstones and sludge in the gallbladder. Common hepatic duct size is upper normal. Not able to visualize the lower CBD although this was not significantly dilated on the recent CT scan of 10/09/2021 2. There is no ascites DATA REPOSITORY:
[2021-10-12] MEDS: Normal Saline 1,000 ML 1000 ML IV (08:51)
[2021-10-12 08:52] LABS: Abs Immature Grans 0.07 10^3/uL (0.0-0.06); Absolute Basophil Count 0.03 10^3/uL (0.0-0.2); Absolute Lymphocyte Count 0.81 10^3/uL (1.2-3.4); Absolute Neutrophil Count 6.53 10^3/uL (1.2-6.7); Basophils % 0.4; HCT 35.8 % (36.0-46.0); HGB 11.4 g/dL (11.2-15.7); Immature Grans % 0.9; Lymphocytes % 10.2; MCH 33.9 pg (27.0-33.0); MCHC 31.8 % (32.0-36.0); MCV 106.5 fL (80-95); MPV 9.2 fL (8.0-11.0); Monocytes % 6.3; Neutrophils % 82.2; Nucleated RBC 0 %; Platelet Count 143 10^3/uL (130-400); RBC 3.36 10^6/uL (3.93-5.22); RDW 13.1 % (11.7-14.6); WBC 7.94 10^3/uL (4.4-10.8)
[2021-10-12] MEDS: Normal Saline Flush 10 ML SYR IVP (08:52)
--- NOTE | 2021-10-12 08:53 | W.ED.GENAD ---
Discharge Plan Disposition Patient Disposition: HOME Condition: Stable Discharge Details Clinical Impression: Alcoholic gastritis, UTI (urinary tract infection), Alcohol abuse Primary Care Provider: Lavelle Galindo ED Provider: Brian Rosales Home Meds and New Rx's Prescriptions: Continued Xiidra 5 % dropperette 1 drp ophthalmic (eye) BID 0RF Rx Instructions: administer approximately 12 hours apart venlafaxine 75 mg capsule,extended release 24hr 75 mg PO DAILY Qty: 90 11RF mirtazapine 7.5 mg tablet 7.5 mg PO QHS Qty: 90 4RF buspirone 5 mg tablet 5 mg PO BID Qty: 60 5RF Ensure Active High Protein Liquid 414 ml PO DAILY Qty: 84460 11RF multivitamin [Multiple Vitamins] Tablet 1 tab PO DAILY Qty: 90 3RF thiamine HCl (vitamin B1) 100 mg tablet 100 mg PO DAILY Qty: 90 3RF folic acid 1 mg tablet 1 mg PO DAILY Qty: 90 3RF sucralfate 1 gram tablet 1 g PO BID Qty: 60 11RF carboxymethylcellulose sodium [Refresh Plus] 0.5 % Dropperette 1 drp OU Q4H WHILE AWAKE Qty: 30 0RF Label Comments: 08/15/19 pt states that she took her blister pack of meds but that she vomited them up ondansetron 4 mg tablet,disintegrating 4 mg PO Q8H PRN (Reason: nausea and vomiting) Qty: 20 0RF Discontinued sulfamethoxazole-trimethoprim [Bactrim DS] 800-160 mg tablet 1 tab PO BID 7 Days Qty: 14 0RF Discharge Instructions Instructions: Gastritis (ED), Urinary Tract Infection in Women (ED), Abuse of Alcohol (ED) Additional Instructions: As discussed most of your problems are related to you not taking your normally prescribed medications. It is very important that you take these medications as prescribed as they will help you with your symptoms. As discussed on Tuesday your alcohol abuse is a significant factor to your health complaint. It is important that you talk to your primary care provider about alcohol cessation and how to do this safely. If you notice any new, worsening, or change in your symptoms feel free to return to the emergency department for reevaluation. Referrals: Lavelle Galindo MD [Primary Care Provider] - Discharge Data Discharge Date/Time-TO BE ENTERED AT DEPARTURE: 10/12/21 13:47 Medical Decision Making Patient presenting to the emergency department for chief complaint of abdominal pain nausea vomiting. Patient reports this is been going on since last week. I am familiar with patient's condition as I have evaluated her on Tuesday. Patient reports that she has not taken any antinausea medication or medication for her ongoing urinary tract infection. Patient has continued to have alcohol intake but states otherwise poor appetite. Today physical exam does show mild tachycardia, now showing some tenderness to right upper quadrant and epigastrium, no CVA tenderness, normal cardiac and respiratory exam. Plan to recheck labs, will do an ultrasound of the gallbladder given some sludge noted last time but on Tuesday patient had no abdominal tenderness to palpation. Pending results patient given IV fluids, Zofran, morphine. After patient can tolerate p.o. intake will give patient GI cocktail and Carafate given high suspicion of alcoholic gastritis as main cause of discomfort. Once patient can tolerate p.o. intake plan to give fosfomycin for urinary tract infection given that patient states that she has not taking any of her meds since she was initially evaluated last week. Patient is otherwise in stable condition and I do not feel that she is septic. Review of labs show a little change from last week's evaluation. Patient has slightly low potassium and magnesium so plan to orally replete but do not feel that IV is necessary at this time. Patient continues to have obvious findings of urinary tract infection. LFTs are close to patient's baseline but will continue with ultrasound of gallbladder. Given that patient is not taking outpatient medications for UTI we will plan on giving fosfomycin 1 dose. Reviewed radiologist report that shows Cholelithiasis. Radiologist noted no ascites. Given that patient has no Zavala sign on examination I doubt infected gallbladder. After patient received fluids and p.o. medication she was reassessed and stated slight improvement of symptoms but was concerned about return of symptoms. Thoroughly discussed with patient importance of taking her normally prescribed medications given that a lot of her symptoms I feel are being caused by her alcoholic gastritis. Patient was given p.o. intake and again tolerated this without any further vomiting or worsening of symptoms. As patient was ready to be discharged she started bringing up multiple other complaints. Discussed with patient what her hesitation towards discharge was and she stated that she did not want to talk about it. She asked to stay in the emergency department for 1 more hour but without any specific reason or medical complaint. Unsure what patient secondary gain coming to the emergency department is but do feel that she needs primary care follow-up due to multiple ER visits. Return and follow-up precautions were discussed with patient HPI General Mode of arrival: EMS. Date/Time Provider Initiated Documentation: 10/12/21 08:39. Limitations to Documentation: no limitations. Information obtained by: patient. History of Present Illness 76 year old F presents to the emergency department with the chief complaint of Nausea vomiting abdominal pain, described as severe and similar to prior episodes, with intensity rated at 9. Quality is described as aching, and is localized to the abdomen. Patient reports no radiation. Patient started experiencing this week(s) (1) and it has been constant. improves with No relieving factors improve symptom(s), No exacerbating factors reported . Patient notes loss of appetite; denies fever/chills. Patient did receive the following treatments prior to arrival, none Related Data Home Medications Medication Instructions Recorded Confirmed carboxymethylcellulose sodium 0.5 1 drp OU Q4H WHILE AWAKE #30 each 06/20/19 10/12/21 % eye drops in a dropperette (Refresh Plus) food supplemt, lactose-reduced 414 ml PO DAILY #79678 ml 08/24/19 10/12/21 (Ensure Active High Protein) lifitegrast 5 % eye drops in a 1 drp OPHTHALMIC (EYE) BID 08/05/20 10/12/21 dropperette (Xiidra) folic acid 1 mg tablet 1 mg PO DAILY #90 tab 09/05/20 10/12/21 multivitamin (Multiple Vitamins) 1 tab PO DAILY #90 tab 09/05/20 10/12/21 thiamine HCl (vitamin B1) 100 mg 100 mg PO DAILY #90 tab 09/05/20 10/12/21 tablet sucralfate 1 gram tablet 1 g PO BID #60 tab 06/11/21 10/12/21 buspirone 5 mg tablet 5 mg PO BID #60 tab 08/05/21 10/12/21 mirtazapine 7.5 mg tablet 7.5 mg PO QHS #90 tab 08/05/21 10/12/21 venlafaxine 75 mg capsule,extended 75 mg PO DAILY #90 cap 08/05/21 10/12/21 release 24 hr ondansetron 4 mg disintegrating 4 mg PO Q8H PRN #20 tab 10/09/21 10/12/21 tablet Previous Rx's Medication Instructions Recorded carboxymethylcellulose sodium 0.5 1 drp OU Q4H WHILE AWAKE #30 each 06/20/19 % eye drops in a dropperette (Refresh Plus) food supplemt, lactose-reduced 414 ml PO DAILY #72433 ml 08/24/19 (Ensure Active High Protein) folic acid 1 mg tablet 1 mg PO DAILY #90 tab 09/05/20 multivitamin (Multiple Vitamins) 1 tab PO DAILY #90 tab 09/05/20 thiamine HCl (vitamin B1) 100 mg 100 mg PO DAILY #90 tab 09/05/20 tablet sucralfate 1 gram tablet 1 g PO BID #60 tab 06/11/21 buspirone 5 mg tablet 5 mg PO BID #60 tab 08/05/21 mirtazapine 7.5 mg tablet 7.5 mg PO QHS #90 tab 08/05/21 venlafaxine 75 mg capsule,extended 75 mg PO DAILY #90 cap 08/05/21 release 24 hr ondansetron 4 mg disintegrating 4 mg PO Q8H PRN #20 tab 10/09/21 tablet Allergies Allergy/AdvReac Type Severity Reaction Status Date / Time Penicillins Allergy Mild Rash Verified 10/12/21 08:42 ramipril Allergy Unknown ITCHING Verified 10/12/21 08:42 meperidine [From Demerol] AdvReac Severe Nausea Verified 10/12/21 08:42 bupropion AdvReac Mild GI upset Verified 10/12/21 08:42 AMBER Inhibitors AdvReac Unknown COUGH Verified 10/12/21 08:42 alendronate sodium AdvReac Unknown GI Distress Verified 10/12/21 08:42 clarithromycin AdvReac Unknown intolerant Verified 10/12/21 08:42 paroxetine AdvReac Unknown Diarrhea Verified 10/12/21 08:42 General Stated Complaint: Nausea/Vomit/Diar JORDAN: 3 Review of Systems Constitutional Constitutional: Denies chills, Denies fever(s) and Reports poor appetite Cardiovascular Cardiovascular: Denies chest pain and Denies dyspnea Respiratory Respiratory: Denies cough and Denies dyspnea Gastrointestinal Gastrointestinal: Reports as per HPI, Reports abdominal pain, Denies melena, Denies change in bowel habits, Denies coffee ground emesis, Denies constipation, Denies diarrhea, Reports nausea, Reports vomiting and Denies hematemesis Genitourinary Genitourinary: Denies hematuria, Denies urinary incontinence, Denies urinary hesitancy and Denies urinary urgency PFSH All Active Problems (Updated 10/12/21 @ 13:01 by Brian Rosales NP) Hypokalemia (Acute) Alcoholic gastritis (Acute) Acute UTI (Acute) Pulmonary mass (Acute) spiculated mass Pneumonia (Acute) Nausea & vomiting (Acute) Abdominal pain (Acute) Depression with suicidal ideation (Acute) Alcohol intoxication (Acute) Alcohol abuse (Acute) Diarrhea (Acute) Epigastric pain (Acute) Nausea and vomiting (Acute) Dehydration (Acute) Hypokalemia (Acute) Discharge planning issues (Acute) C. difficile colitis (Acute) Palliative care patient (Acute) Difficult intravenous access (Acute) Multiple IV attempts, usually requires ultrasound placement. Pancreatitis (Chronic) PTSD (post-traumatic stress disorder) (Acute) Anemia (Chronic) Depression (Chronic) Foot pain, right (Acute) T12 compression fracture (Acute) Presacral mass (Chronic) Deviated nasal septum (Acute) Frequent falls (Chronic) Head injury (Acute) Transaminitis (Acute) Ambulatory dysfunction (Chronic) Shoulder pain, right (Chronic) DVT prophylaxis (Acute) Suicidal ideation (Acute) Dry eye (Acute) Pruritus (Acute) Dystrophic nail (Acute) AMBER (acute kidney injury) (Acute) Iron deficiency anemia (Chronic) Alcohol abuse (Chronic) Hypomagnesemia (Chronic) Discharge planning issues (Acute) UTI (urinary tract infection) (Acute) Fall (Acute) Atelectasis of left lung (Chronic) Advance directive on file (Acute) Nodule of upper lobe of right lung (Acute ~09/13/18) 09/13/18 [facility] ; 12mm SPICULATED -kb Cataract (Chronic 11/07/15) Hypertension (Chronic) high today; she will check readings at home Hyperlipidemia (Chronic) Back pain, chronic (Chronic) Depression (Chronic) Osteopenia (Chronic) Medical History Acute alcoholism Acute UTI Adjustment disorder with depressed mood AMBER (acute kidney injury) Alcohol intoxication Alcohol intoxication Alcoholic gastritis without bleeding Alcoholic ketosis Allergic rhinitis Anemia Blunt head trauma Blunt trauma of multiple sites of trunk Calcific tendinitis of left shoulder CAP (community acquired pneumonia) Cervical radicular pain neck pain and DJD [facility] Cervical strain 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) pls refrain from alcohol Chronic alcoholism she will not stop drinking unless she checks with me, so that we can help her avert withdrawal I do not think she is capable on her own--she would need placement to achieve required goal of 3 months of sobriety Chronic diarrhea Closed displaced fracture of proximal phalanx of right index finger with routine healing (06/03/17) Closed right humeral fracture Contusion of left little finger Corneal ulcer, right (~08/23/18) 08/23/18; [facility]- Dehydration Elev transaminase/LDH due to alcohol Epigastric abdominal pain Facial fracture due to fall Facial laceration Fall as cause of accidental injury at home as place of occurrence Fall at home Fracture of humerus, left, closed Genital herpes simplex recurrent gential; suppressive Valtrex GERD (gastroesophageal reflux disease) GI bleed (12/20/16) Head contusion Headache History of alcohol abuse Humerus fracture (09/12/19) Right Hypertension Hypokalemia Hypokalemia Hypomagnesemia Incidental lung nodule, greater than or equal to 8mm 1cm, spiculated, stable for many years, recommend f/u in 6 mo Intractable vomiting Leukopenia Macrocytosis (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 Multiple contusions Multiple fractures of ribs Multiple rib fractures 03/11/19 [facility] Non-cardiac chest pain (09/21/16) [facility] 09/21/16 NEGATIVE MP Osteoarthritis Palliative care patient (03/21/17) Pancreatitis, alcoholic, acute Peripheral edema Photophobia of right eye Pleural effusion on left 03/11/19 [facility] Pneumonia Presacral mass (~09/15/18) 09/15/18 [facility] Rash Rib pain on right side Right rib fracture Sacral mass Sciatica right, epidural injuections [facility] Suicidal ideation Tendinitis of left rotator cuff Tubular adenoma of colon (01/28/17) Urinary incontinence 01/24/13 urethral suspension and sling at [facility] (bladder suspension 1991) UTI (urinary tract infection) UTI (urinary tract infection) 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 Bladder repair. Ligation of fallopian tube Repair bladder injury, simple Family History Mother No problems noted. Father , DROWNED at age 50. No problems noted. Sister Personal history of malignant neoplasm MELANOMA Sister No problems noted. Grandfather Personal history of malignant neoplasm STOMACH Grandfather Personal history of malignant neoplasm PROSTATE Grandmother Heart disease IN Acute ill-defined cerebrovascular disease Grandmother Personal history of malignant neoplasm UTERINE Aunt , [place] Heart disease IN Aunt , [place] Heart disease Brother No problems noted. Social History Smoking/Tobacco Use Status: Former Tobacco Use Quit Date: 08/05/20 Smoking risk assessment performed?: Yes Alcohol Intake: current Alcohol Intake frequency: 3 or more drinks per day Alcohol type: hard liquor Drug use: Never Substance use type: does not use Details: whiskey---last on Tuesday per pt Current gender identity: female Do you feel safe at home: Yes Do you feel safe in your relationship?: Yes Exam Const General: cooperative Orientation: alert, awake and oriented x3 Resp Effort & Inspection: normal respiratory effort and able to speak in complete sentences Auscultation: clear to auscultation bilaterally Cardio Rate: regular rate Rhythm: regular rhythm Heart Sounds: S1 normal and S2 normal GI Palpation: soft, no hepatosplenomegaly, not firm, guarding in the RUQ and other (epigastric), no masses, no pulsatile masses, not rigid and tender in the epigastrum, in the LUQ and in the RUQ; Negative for not at McBurney's point, Zavala's sign negative and Rovsing's sign negative Auscultation: normal bowel sounds Back/Spine/Pelvis Back: no CVA tenderness Neuro General: patient alert, patient awake, patient oriented x3, gait normal and moves all extremities Course Vital Signs Vital signs: Vital Signs Temperature 36.4 C L 10/12/21 08:36 Pulse 112 H 10/12/21 08:36 Respiratory Rate 18 10/12/21 08:36 Blood Pressure 181/82 H 10/12/21 08:36 Pulse Oximetry 99 10/12/21 08:36 Temperature 36.4 C L 10/12/21 08:36 Temperature Source Tympanic 10/12/21 08:36 Pulse 112 H 10/12/21 08:36 Respiratory Rate 18 10/12/21 08:36 Respiratory Effort Non-Labored 10/12/21 08:39 Blood Pressure 181/82 H 10/12/21 08:36 Blood Pressure Position Supine 10/12/21 08:36 Pulse Oximetry 99 10/12/21 08:36 Oxygen Delivery Method Room Air 10/12/21 08:36 Oxygen Flow Rate 0 10/12/21 08:36 Pain Level 9 10/12/21 08:36 PAWSS Have you Been Recently Intoxicated or Drunk Within the Last 30 days?: Yes Have you Ever Experienced Previous Episodes of Alcohol Withdrawal?: Yes Have you ever Experienced Withdrawal Seizures?: Yes Have you ever undergone Alcohol Rehabilitation Treatment (i.e, inpt ot outpatient treatment programs)?: Yes Have you ever Experienced Blackouts?: Yes Have you ever Combined Alcohol with other Downers within the last 90 days?: No Have you ever Combined Alcohol with any other Substance of Abuse during the last 90 days?: No Evidence of Increased Autonomic Activity (i.e. HR>120, tremor, sweating, agitation, nausea)?: No Result: 5
[2021-10-12] MEDS: Ondansetron 4 MG/2 ML VIAL IVP (08:58)
[2021-10-12 09:08] LABS: ALT 42 U/L (14-59); AST 131 U/L (15-37); Albumin 3.4 g/dL (3.4-5.0); Alkaline Phosphatase 276 U/L (46-116); Anion Gap 14.2 mmol/L (3-11); BUN 12 mg/dL (7-18); CO2 24.8 mmol/L (21.0-32.0); CREATININE 0.9 mg/dL (0.55-1.02); Chloride 98 mmol/L (98-107); Glucose 150 mg/dL (74-106); Lipase 38 U/L (73-393); Magnesium 1.5 mg/dL (1.8-2.4); Potassium 3.3 mmol/L (3.5-5.1); Sodium 137 mmol/L (136-145); Total Protein 7.9 g/dL (6.4-8.2)
[2021-10-12 09:12] LABS: ETHANOL BLOOD < 3.0 mg/dL (<10)
[2021-10-12] MEDS: MORPHine 4 MG/ML SYR IVP (09:14)
[2021-10-12] MEDS: Sucralfate 1 GM TAB PO (09:17)
[2021-10-12 09:18] LABS: Bilirubin Moderate (Negative); Blood Negative (Negative); Clarity Cloudy (Clear); Glucose Negative (Negative); Ketones 40 mg/dL (Negative); Leukocyte Esterase Small (Negative); Nitrite Positive (Negative); Specific Gravity 1.025 (1.005-1.025); Urobilinogen >=8.0 EU/dL (Up TO 0.2)
[2021-10-12 09:26] LABS: Bacteria Many HPF (Negative); C & S Indicated? Yes; Casts 5-10 Hyaline LPF (Negative); Crystals Few Calcium Oxalate HPF (Negative); Epithelial Cells Few HPF (Negative); Mucus Trace (Negative); RBC Negative HPF (0-2)
[2021-10-12] MEDS: Magnesium Oxide 400 MG TAB PO (09:46)
[2021-10-12] MEDS: Potassium Chloride 20 MEQ TABCR PO (09:46)
[2021-10-12] MEDS: Fosfomycin Tromethamine 3 GM PACKET PO (11:03)
[2021-10-12] MEDS: LORazepam 0.5 MG TAB PO (11:54)
[2021-10-12] MEDS: Ondansetron O.D.T. 4 MG TABEF PO (11:55)
--- NOTE | 2021-10-12 16:58 | NUR.NOTE ---
Referral faxed to PCP/[facility] for multiple ED visits and patient not taking her medications; this week. Wendy Roth Nursing Note:
== END 2021-10-12 13:47 | disposition home or self-care (01) ==
PROVIDERS: Emergency Provider Nurse Practitioner Family; PCP Family Medicine
DX: K29.20 Alcoholic gastritis without bleeding (principal); F10.10 Alcohol abuse, uncomplicated; N39.0 Urinary tract infection, site not specified; B96.89 Other specified bacterial agents as the cause of diseases classified elsewhere; Z91.14 Patient's other noncompliance with medication regimen; R00.0 Tachycardia, unspecified; E87.6 Hypokalemia; K80.20 Calculus of gallbladder without cholecystitis without obstruction; Z79.899 Other long term (current) drug therapy
CPT/HCPCS: 80053; 83690; 96361; 96374; 96375; 99284; 76705; 80320; 81003; 81015; 83735; 85025; 87086; 99283; J2270; J2405; J3490

== ENCOUNTER 2021-11-01 01:47 | Emergency (ER) | payer MEDICARE, SELFPAY ==
[2021-11-01] VITALS (59 sets, daily range): BP systolic 81–204; BP diastolic 32–126; PULSE 87–160; RESP 22–48; TEMP 37.2–39.4; O2SAT 90–100
--- NOTE | 2021-11-01 01:52 | W.ED.GENAD ---
Discharge Plan Disposition Patient Disposition: [facility] Condition: Stable Discharge Details Clinical Impression: UTI (urinary tract infection), Hydronephrosis with renal and ureteral calculus obstruction, Sepsis, History of alcohol abuse Primary Care Provider: Lavelle Galindo ED Provider: Megan Foster Home Meds and New Rx's Prescriptions: No Action Xiidra 5 % dropperette 1 drp ophthalmic (eye) BID 0RF Rx Instructions: administer approximately 12 hours apart venlafaxine 75 mg capsule,extended release 24hr 75 mg PO DAILY Qty: 90 11RF mirtazapine 7.5 mg tablet 7.5 mg PO QHS Qty: 90 4RF buspirone 5 mg tablet 5 mg PO BID Qty: 60 5RF Ensure Active High Protein Liquid 414 ml PO DAILY Qty: 37910 11RF multivitamin [Multiple Vitamins] Tablet 1 tab PO DAILY Qty: 90 3RF thiamine HCl (vitamin B1) 100 mg tablet 100 mg PO DAILY Qty: 90 3RF folic acid 1 mg tablet 1 mg PO DAILY Qty: 90 3RF sucralfate 1 gram tablet 1 g PO BID Qty: 60 11RF carboxymethylcellulose sodium [Refresh Plus] 0.5 % Dropperette 1 drp OU Q4H WHILE AWAKE Qty: 30 0RF Label Comments: 08/15/19 pt states that she took her blister pack of meds but that she vomited them up ondansetron 4 mg tablet,disintegrating 4 mg PO Q8H PRN (Reason: nausea and vomiting) Qty: 20 0RF Medical Decision Making <Wes Dc MD - Last Filed: 11/01/21 06:58> Patient presenting to the ED with active dry heaving and complaint of right thigh pain up into her right abdomen. Also complains of chest pain and shortness of breath which is chronic. Patient has multiple visits to the ED as well as admissions to the hospital due to various complaints mostly related to her alcoholism. Her abdomen is completely benign when distracted. IV ordered with fluids and Compazine to be given. Laboratory studies and EKG obtained. EKG is unchanged from previous. Laboratory studies significant for anion gap and low bicarb which she has had previously and is typically related to alcohol ketosis. Troponin is negative. Liver function elevated as it has been in the past. Magnesium low will need replacement. Alcohol level 81 tonight. Will likely need a couple of liters of fluids and reevaluation before determining disposition. Patient now reporting to nursing that she did fall last night. Will obtain x-ray of right hip. Seems to be doing okay after some fluids and Compazine. Now seemingly worse with recurrent vomiting, increasing heart rate and blood pressure, anxiety, tremulousness suggesting alcohol withdrawal. IV Ativan ordered. Patient with multiple prior admissions for similar presentations. Cannot use phenobarbital given persistently elevated LFTs. Has required metoprolol in the past because she tends to be noncompliant. Discussed with hospitalist and will try to avoid admission as this is a chronic, recurring problem. Medical Records Medical records reviewed: Yes I reviewed the patient's medical records. Lab Data Lab results reviewed: Yes I reviewed the patient's lab results. ECG Data Attestation: I personally reviewed and interpreted this ECG (s) as follows: Prior ECG tracings: available for review Interpretation: see EKG <Megan Foster, - Last Filed: 11/01/21 11:11> Patient presenting to the ED with active dry heaving and complaint of right thigh pain up into her right abdomen. Also complains of chest pain and shortness of breath which is chronic. Patient has multiple visits to the ED as well as admissions to the hospital due to various complaints mostly related to her alcoholism. Her abdomen is completely benign when distracted. IV ordered with fluids and Compazine to be given. Laboratory studies and EKG obtained. EKG is unchanged from previous. Laboratory studies significant for anion gap and low bicarb which she has had previously and is typically related to alcohol ketosis. Troponin is negative. Liver function elevated as it has been in the past. Magnesium low will need replacement. Alcohol level 81 tonight. Will likely need a couple of liters of fluids and reevaluation before determining disposition. Patient now reporting to nursing that she did fall last night. Will obtain x-ray of right hip. Seems to be doing okay after some fluids and Compazine. Now seemingly worse with recurrent vomiting, increasing heart rate and blood pressure, anxiety, tremulousness suggesting alcohol withdrawal. IV Ativan ordered. Patient with multiple prior admissions for similar presentations. Cannot use phenobarbital given persistently elevated LFTs. Has required metoprolol in the past because she tends to be noncompliant. Discussed with hospitalist and will try to avoid admission as this is a chronic, recurring problem. 11/01/21 Dr. Foster 0800 --please see Dr. Dc's note for initial presentation, exam and plan. Case endorsed to continue to monitor, awaiting urinalysis result and final disposition. 0830 --patient assessed by me at bedside and is complaining of right-sided hip pain. She has full range of motion and skin appears normal to inspection without cellulitis or evidence of trauma. She has neurovascularly intact. Back normal to inspection. Her heart rate remains 120s to 130s. BP hypertensive and stable. She felt quite warm to touch and temp obtained is 103. We will continue IV fluid hydration, obtain a CT chest abdomen pelvis, Fluvid, and IV tylenol. 1015 -- CT chest imaging reviewed and no acute findings. CT abdomen and pelvis reviewed and notes mild right hydroureteronephrosis secondary to an obstructing 5 mm calculus in the proximal right ureter. 1025 -- Case discussed with hospitalist and Dr. Rivera -- Dr. Rivera recommends that patient be transferred to a facility as she likely needs urgent stent placement today for a infected kidney stone. Dose of Rocephin ordered. 1055 -- Case discussed with [facility] urology who accepts patient for transfer to the ED. Accepting physician Dr. Cordero. Patient's heart rate improved to the 110s. Blood pressure stable 111/66. Imaging Data Radiologic Study: Radiologist's impression: CTA Chest With Contrast Exam date and time: 11/01/2021 9:12 AM Age: 76 years old Clinical indication: Other: Fever, R hip pain, R/O pneumonia TECHNIQUE: Imaging protocol: Computed tomographic angiography of the chest with contrast. 3D rendering (Not supervised by radiologist): MIP and/or 3D reconstructed images were created by the technologist. Radiation optimization: All CT scans at this facility use at least one of these dose optimization techniques: automated exposure control; mA and/or kV adjustment per patient size (includes targeted exams where dose is matched to clinical indication); or iterative reconstruction. Contrast material: OMNIPAQUE 350; Contrast volume: 100 ml; Contrast route: INTRAVENOUS (IV);? COMPARISON: CT CHEST PE CTA 07/26/2021 8:47 AM FINDINGS: Limitations: Image quality is degraded by significant respiratory motion artifact. Pulmonary arteries: The main pulmonary artery is normal in caliber. There are no central or lobar pulmonary arterial filling defects to suggest pulmonary emboli. Characterization of smaller caliber pulmonary arterial branch vessels is limited by the degree of respiratory motion artifact. Aorta: Normal caliber thoracic aorta with mild atherosclerotic mural calcification. The origins of the great vessels are patent and normal in caliber. Of note, the common carotid arteries are retropharyngeal. Lungs: Evaluation of the lung parenchyma is limited by considerable respiratory motion artifact. There is moderately advanced upper lobe predominant centrilobular emphysema. There are mild dependent atelectatic changes in both lower lobes. There is no consolidating pneumonia. There is a 1.3 cm x 0.9 cm spiculated solid nodular opacity in the posterior right lung apex (series 7, image 143), grossly unchanged in size within the limits of motion artifact. Pleural spaces: Unremarkable. No pleural effusion or pneumothorax. Heart: Mild cardiomegaly. No pericardial effusion. Lymph nodes: Unremarkable. No pathologically enlarged mediastinal, hilar, or axillary lymph nodes. Bones/joints: Degenerative changes in the visualized spine. No suspicious osseous lesions. Soft tissues: Unremarkable. Other findings: Visualized upper abdominal structures demonstrate no acute or suspicious abnormality. IMPRESSION: 1. No central or lobar pulmonary emboli. Study degraded by respiratory motion artifact, which limits characterization of smaller caliber pulmonary arterial branches. 2. No gross interval change in a spiculated 1.3 cm x 0.9 cm solid nodule at the right lung apex. Further characterization with nonemergent PET/CT is suggested. 3. Moderately advanced centrilobular emphysema. 4. Additional stable chronic and incidental findings as above. CT Angiography Abdomen With Contrast Exam date and time: 11/01/2021 9:12 AM Age: 76 years old Clinical indication: Other: Fever, R hip pain, R/O pneumonia TECHNIQUE: Imaging protocol: Computed tomographic angiography images of the abdomen with intravenous contrast material. 3D rendering (Not supervised by radiologist): MIP and/or 3D reconstructed images were created by the technologist. Radiation optimization: All CT scans at this facility use at least one of these dose optimization techniques: automated exposure control; mA and/or kV adjustment per patient size (includes targeted exams where dose is matched to clinical indication); or iterative reconstruction. Contrast material: OMNIPAQUE 350; Contrast volume: 100 ml; Contrast route: INTRAVENOUS (IV);? COMPARISON: 1. CT CHEST PE CTA 07/26/2021 8:[address] ABDOMEN PELVIS W 05/29/2021 11:17 AM FINDINGS: Limitations: Study significantly degraded by motion artifact. Aorta: Mild atherosclerotic mural calcification in the abdominal aorta, without aneurysm or dissection. Celiac trunk and mesenteric arteries: No occlusion or significant stenosis. Renal arteries: No occlusion or significant stenosis. Liver: Mild hepatic steatosis. Gallbladder and bile ducts: Normal. No calcified stones. No ductal dilation. Pancreas: The pancreas is moderately atrophic. No acute abnormality. Spleen: Normal. No splenomegaly. Adrenals: Unremarkable. The stomach is nearly collapsed on this air for not well assessed. There is a small hiatal hernia. Small and large bowel are normal in caliber. Kidneys and ureters: Normal. No hydronephrosis. There is mild right hydroureteronephrosis secondary to an obstructing 5 mm calculus in the proximal right ureter (series 14, image 41). The left renal collecting system and left ureter are normal in caliber. Bilateral renal cysts are again noted, the largest measuring up to 3.5 cm in the anterior mid right kidney. Further characterization is limited by excessive motion artifact. Stomach and bowel: Unremarkable. No obstruction. No mucosal thickening. Appendix: A normal nondilated retrocecal appendix is identified. Lymph nodes: Unremarkable. No enlarged lymph nodes. Intraperitoneal space: Unremarkable. No free air. No significant fluid collection. There is a small amount of pelvic ascites. There is no fluid collection or pneumoperitoneum. Bladder: The urinary bladder is under distended, which limits evaluation. There is trace gas within the bladder, possibly due to recent instrumentation. No intraluminal calcifications. Bones/joints: Unremarkable. No acute fracture. No dislocation. Multilevel spondylosis in the visualized spine. Grade 1 retrolisthesis of L1 on L2 and of L2 on L3. Grade 1 anterolisthesis of L4 on L5. Mild lumbar levoscoliosis. Mild bilateral hip osteoarthritis. No suspicious osseous lesions. Soft tissues: There is a 4.2 cm x 4.9 cm x 3 cm lobulated solid mass in the presacral soft tissues, not significantly changed in size since 05/29/2021. Small bilateral fat containing inguinal hernias. IMPRESSION: 1. Mild right hydroureteronephrosis secondary to an obstructing 5 mm calculus in the proximal right ureter. Study significantly degraded by motion artifact. 2. No evidence of aneurysm or dissection in the abdominal aorta. 3. Stable 4.2 cm x 4.9 cm x 3 cm lobulated solid presacral mass, which could also be further assessed at the time of the PET/CT recommended above. 4. Multiple additional stable chronic and incidental/nonemergent findings are discussed in the body of the report. HPI <Wes Dc MD - Last Filed: 11/01/21 06:58> General Mode of arrival: EMS. Date/Time Provider Initiated Documentation: 11/01/21 01:48. Limitations to Documentation: no limitations. Information obtained by: patient, EMS, RN notes reviewed and old records reviewed. HPI Narrative: Patient presents to ED by ambulance with complaint of right sided thigh pain up into her right abdomen. Patient denies any falls or trauma. She is dry heaving here. She complains of chest pain and shortness of breath which is chronic and unchanged. She denies any diarrhea. She denies fever. She does continue to drink alcohol. She is able to move her right lower extremity without significant difficulty. Related Data Home Medications Medication Instructions Recorded Confirmed carboxymethylcellulose sodium 0.5 1 drp OU Q4H WHILE AWAKE #30 each 06/20/19 10/12/21 % eye drops in a dropperette (Refresh Plus) food supplemt, lactose-reduced 414 ml PO DAILY #64128 ml 08/24/19 10/12/21 (Ensure Active High Protein) lifitegrast 5 % eye drops in a 1 drp OPHTHALMIC (EYE) BID 08/05/20 10/12/21 dropperette (Xiidra) folic acid 1 mg tablet 1 mg PO DAILY #90 tab 09/05/20 10/12/21 multivitamin (Multiple Vitamins) 1 tab PO DAILY #90 tab 09/05/20 11/01/21 thiamine HCl (vitamin B1) 100 mg 100 mg PO DAILY #90 tab 09/05/20 10/12/21 tablet sucralfate 1 gram tablet 1 g PO BID #60 tab 06/11/21 11/01/21 buspirone 5 mg tablet 5 mg PO BID #60 tab 08/05/21 11/01/21 mirtazapine 7.5 mg tablet 7.5 mg PO QHS #90 tab 08/05/21 11/01/21 venlafaxine 75 mg capsule,extended 75 mg PO DAILY #90 cap 08/05/21 11/01/21 release 24 hr ondansetron 4 mg disintegrating 4 mg PO Q8H PRN #20 tab 10/09/21 11/01/21 tablet Previous Rx's Medication Instructions Recorded carboxymethylcellulose sodium 0.5 1 drp OU Q4H WHILE AWAKE #30 each 06/20/19 % eye drops in a dropperette (Refresh Plus) food supplemt, lactose-reduced 414 ml PO DAILY #00304 ml 08/24/19 (Ensure Active High Protein) folic acid 1 mg tablet 1 mg PO DAILY #90 tab 09/05/20 multivitamin (Multiple Vitamins) 1 tab PO DAILY #90 tab 09/05/20 thiamine HCl (vitamin B1) 100 mg 100 mg PO DAILY #90 tab 09/05/20 tablet sucralfate 1 gram tablet 1 g PO BID #60 tab 06/11/21 buspirone 5 mg tablet 5 mg PO BID #60 tab 08/05/21 mirtazapine 7.5 mg tablet 7.5 mg PO QHS #90 tab 08/05/21 venlafaxine 75 mg capsule,extended 75 mg PO DAILY #90 cap 08/05/21 release 24 hr ondansetron 4 mg disintegrating 4 mg PO Q8H PRN #20 tab 10/09/21 tablet Allergies Allergy/AdvReac Type Severity Reaction Status Date / Time Penicillins Allergy Mild Rash Verified 11/01/21 01:57 ramipril Allergy Unknown ITCHING Verified 11/01/21 01:57 meperidine [From Demerol] AdvReac Severe Nausea Verified 11/01/21 01:57 bupropion AdvReac Mild GI upset Verified 11/01/21 01:57 AMBER Inhibitors AdvReac Unknown COUGH Verified 11/01/21 01:57 alendronate sodium AdvReac Unknown GI Distress Verified 11/01/21 01:57 clarithromycin AdvReac Unknown intolerant Verified 11/01/21 01:57 paroxetine AdvReac Unknown Diarrhea Verified 11/01/21 01:57 General JORDAN: 3 Review of Systems <Wes Dc MD - Last Filed: 11/01/21 06:58> Narrative: As documented in HPI otherwise negative as below. Const: no fever, chills, weakness Resp: no cough, pleuritic pain CV: no diaphoresis, edema, syncope GI: no diarrhea Neuro: no headache, numbness, focal weakness, confusion PFSH <Wes Dc MD - Last Filed: 11/01/21 06:58> All Active Problems (Updated 11/01/21 @ 11:08 by Megan Foster DO) UTI (urinary tract infection) (Acute) Hydronephrosis with renal and ureteral calculus obstruction (Acute) Sepsis (Acute) History of alcohol abuse (Acute) Tendinitis of left rotator cuff (Acute) Macrocytosis (Acute 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 Leukopenia (Acute) Headache (Acute) Epigastric abdominal pain (Acute) Elev transaminase/LDH (Acute) due to alcohol Calcific tendinitis of left shoulder (Acute) Alcoholic gastritis (Acute) Acute UTI (Acute) Pulmonary mass (Acute) spiculated mass Pneumonia (Acute) Nausea & vomiting (Acute) Abdominal pain (Acute) Depression with suicidal ideation (Acute) Alcohol intoxication (Acute) Alcohol abuse (Acute) Diarrhea (Acute) Epigastric pain (Acute) Nausea and vomiting (Acute) Dehydration (Acute) Hypokalemia (Acute) Discharge planning issues (Acute) C. difficile colitis (Acute) Palliative care patient (Acute) Difficult intravenous access (Acute) Multiple IV attempts, usually requires ultrasound placement. Pancreatitis (Chronic) PTSD (post-traumatic stress disorder) (Acute) Anemia (Chronic) Depression (Chronic) Foot pain, right (Acute) T12 compression fracture (Acute) Presacral mass (Chronic) Deviated nasal septum (Acute) Frequent falls (Chronic) Head injury (Acute) Transaminitis (Acute) Ambulatory dysfunction (Chronic) Shoulder pain, right (Chronic) DVT prophylaxis (Acute) Suicidal ideation (Acute) Dry eye (Acute) Pruritus (Acute) Dystrophic nail (Acute) AMBER (acute kidney injury) (Acute) Iron deficiency anemia (Chronic) Alcohol abuse (Chronic) Hypomagnesemia (Chronic) Discharge planning issues (Acute) UTI (urinary tract infection) (Acute) Fall (Acute) Atelectasis of left lung (Chronic) Advance directive on file (Acute) Nodule of upper lobe of right lung (Acute ~09/13/18) 09/13/18 [facility]; 12mm SPICULATED -kb Cataract (Chronic 11/07/15) Hypertension (Chronic) high today; she will check readings at home Hyperlipidemia (Chronic) Back pain, chronic (Chronic) Depression (Chronic) Osteopenia (Chronic) Medical History Adjustment disorder with depressed mood Alcoholic ketosis Anemia Cervical radicular pain neck pain and [facility] 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) pls refrain from alcohol Chronic alcoholism she will not stop drinking unless she checks with me, so that we can help her avert withdrawal I do not think she is capable on her own--she would need placement to achieve required goal of 3 months of sobriety Chronic diarrhea Closed right humeral fracture Corneal ulcer, right (~08/23/18) 08/23/18; [facility]- Fracture of humerus, left, closed Genital herpes simplex recurrent gential; suppressive Valtrex GERD (gastroesophageal reflux disease) GI bleed (12/20/16) Hypertension Hypokalemia Hypomagnesemia Incidental lung nodule, greater than or equal to 8mm 1cm, spiculated, stable for many years, recommend f/u in 6 mo Multiple rib fractures 03/11/19 [facility] Non-cardiac chest pain (09/21/16[place] [facility] [place] NEGATIVE MP Osteoarthritis Palliative care patient (03/21/17) Pancreatitis, alcoholic, acute Peripheral edema Photophobia of right eye Pleural effusion on left 03/11/19 [facility] Presacral mass (~09/15/18) 09/15/18 [facility] Sciatica right, epidural injuections [facility] Tubular adenoma of colon (01/28/17) Urinary incontinence 01/24/13 [place]ral suspension [place] [facility] [place] 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 Bladder repair. Repair bladder injury, simple Family History Mother No problems noted. Father , DROWNED at age 50. No problems noted. Sister Personal history of malignant neoplasm MELANOMA Sister No problems noted. Grandfather Personal history of malignant neoplasm STOMACH Grandfather Personal history of malignant neoplasm PROSTATE Grandmother Heart disease [place] Acute ill-defined cerebrovascular disease Grandmother Personal history of malignant neoplasm UTERINE Aunt , [place] Heart disease TN Aunt , [place] Heart disease Brother No problems noted. Social History Smoking/Tobacco Use Status: Former Tobacco Use Quit Date: 08/05/20 Smoking risk assessment performed?: Yes Alcohol Intake: current Alcohol Intake frequency: 3 or more drinks per day Alcohol type: hard liquor Drug use: Never Substance use type: does not use Details: whiskey---last on Tuesday per pt Current gender identity: female Do you feel safe at home: Yes Do you feel safe in your relationship?: Yes Exam <Wes Dc MD - Last Filed: 11/01/21 06:58> Narrative Exam Narrative: Const: Frail, thin, elderly female dry heaving. HEENT: NC/AT. Normal facial exam. Neck: Supple. Trachea midline. Lungs: Normal respiratory effort. Lungs are clear. Cor: RRR without murmur/gallop. Tachy. Good radial pulses. GI: Soft. NT/ND. No guarding or rebound when distracted. Neuro: A+O x 3. Normal speech, mentation. Cranial nerves II - XII grossly intact. No gross motor or sensory deficit. Ext: No C/C/E. Normal ROM. No pain with palpation over right hip or with ROM of right hip. Skin: Warm and dry without rash. Sign Out <Wes Dc MD - Last Filed: 11/01/21 06:58> Sign Out Data: Sign Out Comment: Vital signs have improved with after IV Lopressor. Cath urine being obtained now. At this point should be able to discharge pending U/A results. Last updated by Wes Dc MD at 11/01/21 07:49
--- NOTE | 2021-11-01 02:30 | RT.EKG_ITS ---
APPROVED REPORT Exam: Resting ECG Reason for Exam: Patient Location: E HR:108 bpm ECG Measurements Heart Rate 108 AXIS FL 178 P 65 QRSd 89 QRS -27 QT 360 T -4 QTc 483 Conclusion Sinus tachycardia...rate> 99 Inferior infarct, old...Q >35mS, II III aVF Nonspecific ST-T changes There are no significant changes compared to prior EKG performed on 09/23/2021 at 18:06.
[2021-11-01] MEDS: Prochlorperazine 10 MG/2 ML VIAL IVP (02:58)
[2021-11-01] MEDS: Normal Saline 1,000 ML 1000 ML IV ×2 (02:59→05:18)
[2021-11-01 03:06] LABS: Abs Immature Grans 0.05 10^3/uL (0.0-0.06); Absolute Basophil Count 0.03 10^3/uL (0.0-0.2); Absolute Lymphocyte Count 0.46 10^3/uL (1.2-3.4); Absolute Monocyte Count 0.52 10^3/uL (0.1-0.8); Absolute Neutrophil Count 8.73 10^3/uL (1.2-6.7); Basophils % 0.3; HCT 35.6 % (36.0-46.0); HGB 11.3 g/dL (11.2-15.7); Immature Grans % 0.5; Lymphocytes % 4.7; MCH 33.6 pg (27.0-33.0); MCHC 31.7 % (32.0-36.0); MPV 9.7 fL (8.0-11.0); Monocytes % 5.3; Neutrophils % 89.2; Nucleated RBC 0 %; Platelet Count 132 10^3/uL (130-400); RBC 3.36 10^6/uL (3.93-5.22); RDW 13.9 % (11.7-14.6); RDW-SD 54.4 fL; WBC 9.79 10^3/uL (4.4-10.8)
[2021-11-01 03:21] LABS: Diff Comment RBC Morph Reviewed; Macrocytosis 3+; Polychromasia Present
[2021-11-01 03:42] LABS: ALT 27 U/L (14-59); AST 86 U/L (15-37); Alkaline Phosphatase 238 U/L (46-116); Anion Gap 20.4 mmol/L (3-11); BUN 14 mg/dL (7-18); CO2 19.6 mmol/L (21.0-32.0); CREATININE 0.8 mg/dL (0.55-1.02); Calcium 9.3 mg/dL (8.5-10.1); Chloride 101 mmol/L (98-107); Glucose 148 mg/dL (74-106); Lipase 28 U/L (73-393); Magnesium 1.4 mg/dL (1.8-2.4); Sodium 141 mmol/L (136-145); Total Protein 6.9 g/dL (6.4-8.2); Troponin I < 50 ng/L (<or=60)
[2021-11-01] MEDS: Ketorolac 15 MG/ML VIAL IVP (05:19)
[2021-11-01] MEDS: Ondansetron 4 MG/2 ML VIAL IVP (05:26)
[2021-11-01] MEDS: LORazepam 2 MG/ML VIAL 1 MG IVP ×2 (05:29→06:01)
[2021-11-01] MEDS: Magnesium Oxide 400 MG TAB PO (05:31)
[2021-11-01] MEDS: MAGNESIUM SULFATE 1 GM/100 ML BAG IVPB (05:37)
--- NOTE | 2021-11-01 05:45 | DI.RAD_ITS ---
Exam(s) XR HIP RT COMPLETE AP PELVIS EXAM: XR HIP RT COMPLETE AP PELVIS CLINICAL HISTORY: fall/pain TECHNIQUE: COMPARISON: CR,XR XR HIP LT COMPLETE AP PELVIS from 07/26/2021 FINDINGS: Three views were obtained. There are moderate degenerative changes of the hip joint. There is no ev idence of acute fracture or dislocation. IMPRESSION: RADIATION DOSE DELIVERED: Total DLP
--- NOTE | 2021-11-01 06:28 | DI.VRAD_ITS ---
PROCEDURE INFORMATION: Exam: XR Right Hip Exam date and time: 11/01/2021 6:00 AM Age: 76 years old Clinical indication: Hip pain; Right hip; Patient HX: Fall/pain TECHNIQUE: Imaging protocol: XR Right hip. Views: 2 or 3 views hip with pelvis when performed. COMPARISON: CT ABDOMEN PELVIS W 10/09/2021 10:28 AM FINDINGS: Bones/joints: Degenerative changes in the right hip No acute fracture. Soft tissues: Unremarkable. IMPRESSION: No acute fracture noted Dictated and Authenticated by: Dylon Carter MD. Ordering:EVE Hravey MD
[2021-11-01] MEDS: Metoprolol 5 MG/5 ML VIAL IVP (07:32)
[2021-11-01 07:59] LABS: Bilirubin Small (Negative); Blood Large (Negative); Clarity Cloudy (Clear); Glucose Negative (Negative); Ketones 15 mg/dL (Negative); Leukocyte Esterase Large (Negative); Nitrite Negative (Negative); Specific Gravity 1.025 (1.005-1.025)
[2021-11-01 08:07] LABS: RBC >50 HPF (0-2); WBC >50 HPF (0-5)
[2021-11-01 08:08] LABS: Bacteria Many HPF (Negative); C & S Indicated? Yes; Casts Negative LPF (Negative); Crystals Negative HPF (Negative); Epithelial Cells Few HPF (Negative); Mucus Negative (Negative); Other Cells Negative (Negative)
--- NOTE | 2021-11-01 08:39 | DI.CT_ITS ---
Exam(s) CT CHEST PE ABD PELVIS W EXAM: CT CHEST PE ABD PELVIS W CLINICAL HISTORY: fever, R hip pain, r/o pneumonia TECHNIQUE: CT examination of the chest, abdomen, and pelvis was performed with intravenous infusion of 100 cc of Omnipaque 350. COMPARISON: CT CT CHEST PE CTA from 07/26/[address] ABDOMEN PELVIS W from 10/09/2021 FINDINGS: There is multifocal pulmonary scarring. There is a spiculated 13 millimeter right apical nodule, unc hanged from prior CT of July 26. No new consolidation period. There is no pleural effusion seen. There is no mediastinal or hilar adenopathy. Pulmonary arteries are not well visualized due to motion artifact, no gross central pulmonary embolus identified.. Thoracic aorta and major branches appear intact with no evidence of aneurysm or dissection. No bony abnormality seen in the thorax. There is marked hepatic steatosis.. Gallbladder and bile ducts are CT normal. No abnormality seen involving the spleen. Pancreas appears intact. The adrenals are unremarkable in appearance. Multiple bilateral apparent renal cysts noted, there is moderate right hydronephrosis secondary to obstructing 5 millimeter in diameter proximal right urete ral calculus period.. Abdominal aorta and major visceral branches appear intact. No significant abdominal wall hernia seen. No significant abdominal or pelvic adenopathy. No focal bowel pathology. No evidence of appendicitis or diverticulitis. The previously described presacral mass which is indeterminate is unchanged in appearance comparison with prior examination of October 09. IMPRESSION: Right hydronephrosis secondary to proximal 5 millimeter right ureteral stone period. Stable presacral mass. This is an indeterminate mass and malignancy is not excluded. Appropriate follow-up for right apical lung nodule, 6 month follow-up chest CT recommended, alternati vely PET-CT could be considered for evaluation.. RADIATION DOSE DELIVERED: 1,691.93mGy.cm Total DLP 1,691.93mGy.cm Total DLP !Error CTDIvol
[2021-11-01] MEDS: ACETAMINOPHEN 1,000 MG/100 ML BTL 400 MG IVPB (09:04)
[2021-11-01 09:10] LABS: Lactate 5.1 mmol/L (0.6-1.4)
[2021-11-01] MEDS: Normal Saline Flush 10 ML SYR IVP (09:11)
[2021-11-01] MEDS: Omnipaque 350 MG/ML 100 ML BTL IV (09:11)
[2021-11-01 09:26] LABS: COVID-19 PCR Negative (Negative); Influenza A PCR Negative (Negative); Influenza B PCR Negative (Negative); RSV PCR Negative (Negative)
[2021-11-01 09:27] LABS: Source Nasopharynx
--- NOTE | 2021-11-01 10:06 | DI.VRAD_ITS ---
PROCEDURE INFORMATION: Exam: CTA Chest With Contrast Exam date and time: 11/01/2021 9:12 AM Age: 76 years old Clinical indication: Other: Fever, R hip pain, R/O pneumonia TECHNIQUE: Imaging protocol: Computed tomographic angiography of the chest with contrast. 3D rendering (Not supervised by radiologist): MIP and/or 3D reconstructed images were created by the technologist. Radiation optimization: All CT scans at this facility use at least one of these dose optimization techniques: automated exposure control; mA and/or kV adjustment per patient size (includes targeted exams where dose is matched to clinical indication); or iterative reconstruction. Contrast material: OMNIPAQUE 350; Contrast volume: 100 ml; Contrast route: INTRAVENOUS (IV); COMPARISON: CT CHEST PE CTA 07/26/2021 8:47 AM FINDINGS: Limitations: Image quality is degraded by significant respiratory motion artifact. Pulmonary arteries: The main pulmonary artery is normal in caliber. There are no central or lobar pulmonary arterial filling defects to suggest pulmonary emboli. Characterization of smaller caliber pulmonary arterial branch vessels is limited by the degree of respiratory motion artifact. Aorta: Normal caliber thoracic aorta with mild atherosclerotic mural calcification. The origins of the great vessels are patent and normal in caliber. Of note, the common carotid arteries are retropharyngeal. Lungs: Evaluation of the lung parenchyma is limited by considerable respiratory motion artifact. There is moderately advanced upper lobe predominant centrilobular emphysema. There are mild dependent atelectatic changes in both lower lobes. There is no consolidating pneumonia. There is a 1.3 cm x 0.9 cm spiculated solid nodular opacity in the posterior right lung apex (series 7, image 143), grossly unchanged in size within the limits of motion artifact. Pleural spaces: Unremarkable. No pleural effusion or pneumothorax. Heart: Mild cardiomegaly. No pericardial effusion. Lymph nodes: Unremarkable. No pathologically enlarged mediastinal, hilar, or axillary lymph nodes. Bones/joints: Degenerative changes in the visualized spine. No suspicious osseous lesions. Soft tissues: Unremarkable. Other findings: Visualized upper abdominal structures demonstrate no acute or suspicious abnormality. IMPRESSION: 1. No central or lobar pulmonary emboli. Study degraded by respiratory motion artifact, which limits characterization of smaller caliber pulmonary arterial branches. 2. No gross interval change in a spiculated 1.3 cm x 0.9 cm solid nodule at the right lung apex. Further characterization with nonemergent PET/CT is suggested. 3. Moderately advanced centrilobular emphysema. 4. Additional stable chronic and incidental findings as above. PROCEDURE INFORMATION: Exam: CT Angiography Abdomen With Contrast Exam date and time: 11/01/2021 9:12 AM Age: 76 years old Clinical indication: Other: Fever, R hip pain, R/O pneumonia TECHNIQUE: Imaging protocol: Computed tomographic angiography images of the abdomen with intravenous contrast material. 3D rendering (Not supervised by radiologist): MIP and/or 3D reconstructed images were created by the technologist. Radiation optimization: All CT scans at this facility use at least one of these dose optimization techniques: automated exposure control; mA and/or kV adjustment per patient size (includes targeted exams where dose is matched to clinical indication); or iterative reconstruction. Contrast material: OMNIPAQUE 350; Contrast volume: 100 ml; Contrast route: INTRAVENOUS (IV); COMPARISON: 1. CT CHEST PE CTA 07/26/2021 8:[address] ABDOMEN PELVIS W 05/29/2021 11:17 AM FINDINGS: Limitations: Study significantly degraded by motion artifact. Aorta: Mild atherosclerotic mural calcification in the abdominal aorta, without aneurysm or dissection. Celiac trunk and mesenteric arteries: No occlusion or significant stenosis. Renal arteries: No occlusion or significant stenosis. Liver: Mild hepatic steatosis. Gallbladder and bile ducts: Normal. No calcified stones. No ductal dilation. Pancreas: The pancreas is moderately atrophic. No acute abnormality. Spleen: Normal. No splenomegaly. Adrenals: Unremarkable. The stomach is nearly collapsed on this air for not well assessed. There is a small hiatal hernia. Small and large bowel are normal in caliber. Kidneys and ureters: Normal. No hydronephrosis. There is mild right hydroureteronephrosis secondary to an obstructing 5 mm calculus in the proximal right ureter (series 14, image 41). The left renal collecting system and left ureter are normal in caliber. Bilateral renal cysts are again noted, the largest measuring up to 3.5 cm in the anterior mid right kidney. Further characterization is limited by excessive motion artifact. Stomach and bowel: Unremarkable. No obstruction. No mucosal thickening. Appendix: A normal nondilated retrocecal appendix is identified. Lymph nodes: Unremarkable. No enlarged lymph nodes. Intraperitoneal space: Unremarkable. No free air. No significant fluid collection. There is a small amount of pelvic ascites. There is no fluid collection or pneumoperitoneum. Bladder: The urinary bladder is under distended, which limits evaluation. There is trace gas within the bladder, possibly due to recent instrumentation. No intraluminal calcifications. Bones/joints: Unremarkable. No acute fracture. No dislocation. Multilevel spondylosis in the visualized spine. Grade 1 retrolisthesis of L1 on L2 and of L2 on L3. Grade 1 anterolisthesis of L4 on L5. Mild lumbar levoscoliosis. Mild bilateral hip osteoarthritis. No suspicious osseous lesions. Soft tissues: There is a 4.2 cm x 4.9 cm x 3 cm lobulated solid mass in the presacral soft tissues, not significantly changed in size since 05/29/2021. Small bilateral fat containing inguinal hernias. IMPRESSION: 1. Mild right hydroureteronephrosis secondary to an obstructing 5 mm calculus in the proximal right ureter. Study significantly degraded by motion artifact. 2. No evidence of aneurysm or dissection in the abdominal aorta. 3. Stable 4.2 cm x 4.9 cm x 3 cm lobulated solid presacral mass, which could also be further assessed at the time of the PET/CT recommended above. 4. Multiple additional stable chronic and incidental/nonemergent findings are discussed in the body of the report. Dictated and Authenticated by: Bianka Jasso MD. Ordering:KATE Guzman MD
[2021-11-01] MEDS: cefTRIAXone 1 GM/50 ML BAG IVPB (10:48)
--- NOTE | 2021-11-01 11:31 | NUR.NOTE ---
Nursing Note: 1130 Spoke with Armida Lo and notified her that the patient is going to be transferred to [facility] for an infected kidney stone. She will be sure that the patient's animals are taken care of. Wendy Roth
[2021-11-01] MEDS: HYDROmorphone 2 MG/ML VIAL 0.5 MG IVP (11:43)
--- NOTE | 2021-11-03 09:22 | NUR.NOTE ---
Nursing Note: Accessed chart to get demographics to confirm patient in [facility] records. Wendy Roth
--- NOTE | 2021-11-03 09:53 | NUR.NOTE ---
Nursing Note: Preliminary blood culture results were faxed to [facility] [address] Mccarthy is aware. Wendy Roth [facility] [phone] fax
== END 2021-11-01 12:00 | disposition short-term general hospital (02) ==
PROVIDERS: Emergency Medicine; Emergency Provider Physician Assistant; PCP Family Medicine
DX: A41.51 Sepsis due to Escherichia coli [E. coli] (principal); N39.0 Urinary tract infection, site not specified; N13.1 Hydronephrosis with ureteral stricture, not elsewhere classified; N20.2 Calculus of kidney with calculus of ureter; M25.551 Pain in right hip; R07.9 Chest pain, unspecified; R06.02 Shortness of breath; W18.39XA Other fall on same level, initial encounter
CPT/HCPCS: 36415; 71275; 74177; 80053; 83690; 87040; 87077; 87637; 93005; 96361; 96365; 96366; 96367; 96375; 96376; 99285; 73502; 80320; 81003; 81015; 83605; 83735; 84484; 85025; 87086; 87186; 93010; J0131; J0696; J0780; J1885; J2060; J2405; J3475; J3490

== ENCOUNTER 2021-12-25 16:50 | Outpatient (CLI) | payer MEDICARE, SELFPAY ==
--- NOTE | 2021-12-25 16:45 | RT.EKG_ITS ---
APPROVED REPORT Exam: Resting ECG Reason for Exam: Patient complains of chest pain and congestion Patient Location: O HR:86 bpm ECG Measurements Heart Rate 86 AXIS [place] 182 P 9 QRSd 91 QRS -24 QT 406 T 4 QTc 487 Conclusion Sinus rhythm...normal P axis, V-rate 60- 99 Left ventricular hypertrophy...multiple voltage criteria
== END 2021-12-25 16:51 | disposition home or self-care (01) ==
LOC: DI.CM 16:51
PROVIDERS: PCP Family Medicine; Visit Provider Family Medicine
DX: R07.9 Chest pain, unspecified (principal)
CPT/HCPCS: 93010

== ENCOUNTER 2021-12-31 03:02 | Outpatient (CLI) | payer MEDICARE, SELFPAY ==
--- NOTE | 2021-12-31 13:39 | DI.RAD_ITS ---
Exam(s) XR FOOT RT COMPLETE EXAM: XR FOOT RT COMPLETE CLINICAL HISTORY: rt foot pain for months,DORSUM AND LATERAL, REDNESS,M79.671 TECHNIQUE: COMPARISON: CR,XR XR FOOT RT COMPLETE from 03/06/2021 FINDINGS: Three views were obtained. The bones of the foot appears somewhat demineralized in a patchy fashion. Alignment appears within normal limits. There are slight connor articular degenerative changes. No o ther significant abnormality seen. IMPRESSION: RADIATION DOSE DELIVERED: Total DLP
== END 2021-12-31 03:22 ==
PROVIDERS: PCP Family Medicine; Visit Provider Family Medicine
DX: M79.671 Pain in right foot (principal); M85.871 Other specified disorders of bone density and structure, right ankle and foot
CPT/HCPCS: 73630

== ENCOUNTER → 2022-02-04 01:45 | Outpatient (CLI) | payer MEDICARE, SELFPAY ==
--- NOTE | 2022-02-04 07:00 | DI.CT_ITS ---
Exam(s) CT HEAD WO EXAM: CT HEAD WO CLINICAL HISTORY: chronic daily rt sided headache,r51.9. TECHNIQUE: Imaging Protocol: Axial computed tomography images with coronal and sagittal reformatted images were created and reviewed COMPARISON: CT CT HEAD CERV SPINE FACIAL WO from 02/18/2021 FINDINGS: There are no skull fractures nor fluid in the visualized paranasal sinuses. There is no evidence of intracranial hemorrhage, mass effect, or shift of midline structures. There are no extra-axial fluid collections. The ventricles are not enlarged or shifted and there is no blo od within the ventricular system nor within the basal cisterns. Amount of involutional change is symmetric and consistent with the patient's age. IMPRESSION: No acute intracranial findings on this noninfused CT scan of the brain. No significant change compared to 02/18/2021. RADIATION DOSE DELIVERED: 820.06mGy.cm Total DLP DATA REPOSITORY: All CT scans at this facility are submitted to the National Radiology Data Registry (NRDR) Dose Index Registry (DIR) with the [employer] (A[employer]). RADIATION OPTIMIZATION: All CT scans at this facility use at least one of these dose optimization te chniques: automated exposure control; mA and/or kV adjustment per patient size (includes targeted exa ms where dose is matched to clinical indication); or iterative reconstruction.
== END ==
PROVIDERS: PCP Family Medicine; Visit Provider Family Medicine
DX: R51.9 Headache, unspecified (principal)
CPT/HCPCS: 70450

== ENCOUNTER → 2022-03-25 10:59 | Outpatient (BNVA) | payer MEDICARE, SELFPAY | PROVIDERS: PCP Family Medicine; Referring Provider Family Medicine; Visit Provider Nurse Practitioner Gerontology | DX: N20.0 Calculus of kidney (principal); N13.30 Unspecified hydronephrosis; Z98.890 Other specified postprocedural states; R32 Unspecified urinary incontinence | CPT/HCPCS: 51798; 81003; 99215 ==

== ENCOUNTER → 2022-03-30 11:05 | Outpatient (BNVA) | payer MEDICARE, SELFPAY | PROVIDERS: PCP Family Medicine; Referring Provider Family Medicine; Visit Provider Urology | DX: M54.6 Pain in thoracic spine (principal); R32 Unspecified urinary incontinence; N20.1 Calculus of ureter | CPT/HCPCS: 99214 ==

== ENCOUNTER → 2022-04-27 10:40 | Outpatient (BNVA) | payer MEDICARE, SELFPAY | PROVIDERS: PCP Family Medicine; Referring Provider Family Medicine; Visit Provider Urology | DX: R32 Unspecified urinary incontinence (principal) | CPT/HCPCS: 99213 ==

== ENCOUNTER 2022-05-12 22:55 | Inpatient (IN) | payer MEDICARE, SELFPAY ==
--- NOTE | 2022-05-12 22:45 | RT.EKG_ITS ---
APPROVED REPORT Exam: Resting ECG Reason for Exam: Vomiting Patient Location: E HR:108 bpm ECG Measurements Heart Rate 108 AXIS CA 197 P 151 QRSd 87 QRS -28 QT 354 T -26 QTc 475 Conclusion Sinus or ectopic atrial tachycardia...P axis (-45,135), rate> 99 Inferior infarct, old...Q >35mS, II III aVF
[2022-05-12 23:01] VITALS: BP 188/100; PULSE 116; TEMP 36.9; O2SAT 97
[2022-05-12] MEDS: Lactated Ringers 500 ML 1000 ML IV (23:15)
[2022-05-12] MEDS: Ondansetron 4 MG/2 ML VIAL IVP (23:15)
[2022-05-12 23:18] LABS: Abs Immature Grans 0.04 10^3/uL (0.0-0.06); Absolute Basophil Count 0.02 10^3/uL (0.0-0.2); Absolute Lymphocyte Count 0.19 10^3/uL (1.2-3.4); Absolute Monocyte Count 0.17 10^3/uL (0.1-0.8); Absolute Neutrophil Count 3.95 10^3/uL (1.2-6.7); Basophils % 0.5; HCT 28.6 % (36.0-46.0); HGB 8.3 g/dL (11.2-15.7); Immature Grans % 0.9; Lymphocytes % 4.3; MCH 23.7 pg (27.0-33.0); MCV 82 fL (80-95); MPV 8.4 fL (8.0-11.0); Monocytes % 3.9; Neutrophils % 90.4; Platelet Count 106 10^3/uL (130-400); RDW 20.5 % (11.7-14.6); RDW-SD 59.9 fL; WBC 4.37 10^3/uL (4.4-10.8)
[2022-05-12] MEDS: LORazepam 20 MG/10 ML VIAL IVP (23:20)
[2022-05-12] MEDS: FAMOTIDINE 20 MG in Normal Saline 100 ML 400 MG IVPB (23:25)
[2022-05-12 23:28] LABS: Bilirubin Negative (Negative); Blood Trace-lysed (Negative); Clarity Sl Cloudy (Clear); Glucose 100 mg/dL (Negative); Ketones >=160 mg/dL (Negative); Leukocyte Esterase Negative (Negative); Nitrite Negative (Negative); Specific Gravity 1.025 (1.005-1.025); pH 6.5 (5-8)
--- NOTE | 2022-05-12 23:30 | DI.CT_ITS ---
Exam(s) CT ABDOMEN PELVIS W EXAM: CT ABDOMEN PELVIS W CLINICAL HISTORY: upper abdominal pain x 5 days, n/v x2 days TECHNIQUE: Imaging Protocol: Axial computed tomography images with coronal and sagittal reformatted images were created and reviewed CONTRAST MATERIAL: Intravenous: Omnipaque 350 Contrast volume:100 mL Oral: No COMPARISON: CT CT ABDOMEN PELVIS W from 10/09/[address] CHEST PE ABD PELVIS W from 11/01/2021 FINDINGS: ABDOMEN: Lung Bases: There is cardiomegaly. Coronary artery calcifications are present. There is a small hia rajat hernia. Dependent atelectasis is seen in the lung bases. Liver: There is diffuse decreased attenuation of the liver suggesting fatty infiltration. There is a n unchanged tiny hypodensity in the posterior segment of the right lobe of the liver. It is too smal l for further characterization. Portal, Superior Mesenteric, and Splenic Veins: Unremarkable. Gallbladder and Biliary Tract: There stones seen within the gallbladder. There is a small focus of g as in the dependent portion of the gallbladder. There is no biliary ductal dilatation. No definite biliary ductal stone is seen. Pancreas: Normal density. Question of mild infiltration in the region of the head and uncinate proces s of the pancreas. No peripancreatic fluid collection is seen. Spleen: Normal. Adrenals: No masses seen. Kidneys: Normal size, contour and axis. There are nonobstructing stones in the left kidney. There are hypodensities in both kidneys which are too small for further characterization but likely reflect sm all cysts. There is a simple cyst measuring 2.7 cm in the right kidney. Abdominal Aorta: Abdominal portion non-dilated. Atherosclerosis is present. Bowel: No obstruction or bowel wall thickening. Appendix is unremarkable. Peritoneal Cavity: No ascites, collection or mesenteric inflammatory response. No free air.There has been no change in the presacral mass. Lymph Nodes: Within normal limits. Bones: Within normal limits for the patient's age. There are old healed bilateral rib fractures. The re is stable grade 1 anterolisthesis of L4 on L5 Soft Tissues: Bilateral fat containing inguinal hernia are present. PELVIS: Bladder: Symmetric distention, no gross wall thickening. Reproductive Organs: Unremarkable as visualized. Lymph Nodes: Within normal limits. Bones: Within normal limits for the patient's age. IMPRESSION: 1. Cholelithiasis. No biliary ductal dilatation. 2. Question of mild infiltration in the fat surrounding the head and uncinate process of the pancreas . Mild acute pancreatitis should be considered. Please correlate clinically. 3. Small focus of air in the gallbladder versus an air containing gallstone. 4. Stable presacral mass. RADIATION DOSE DELIVERED: 796.99mGy.cm Total DLP DATA REPOSITORY: All CT scans at this facility are submitted to the National Radiology Data Registry (NRDR) Dose Index Registry (DIR) with the [employer] (ACR). RADIATION OPTIMIZATION: All CT scans at this facility use at least one of these dose optimization te chniques: automated exposure control; mA and/or kV adjustment per patient size (includes targeted exa ms where dose is matched to clinical indication); or iterative reconstruction.
[2022-05-12 23:36] LABS: Anisocytosis 2+; Microcytosis 1+
[2022-05-12 23:39] LABS: ALT 68 U/L (14-59); AST 72 U/L (15-37); Albumin 4.4 g/dL (3.4-5.0); Alkaline Phosphatase 138 U/L (46-116); Anion Gap 18.7 mmol/L (3-11); BUN 19 mg/dL (7-18); Bilirubin, Total 3.4 mg/dL (0.2-1.0); CO2 22.3 mmol/L (21.0-32.0); CREATININE 1.1 mg/dL (0.55-1.02); Calcium 10.5 mg/dL (8.5-10.1); Chloride 97 mmol/L (98-107); Estimated GFR 52.08 (mL/min/1.73m2); Glucose 243 mg/dL (74-106); Lipase 144 U/L (73-393); Magnesium 1.4 mg/dL (1.8-2.4); Sodium 138 mmol/L (136-145); Total Protein 8.6 g/dL (6.4-8.2); Troponin I < 50 ng/L (<or=60)
[2022-05-12 23:41] LABS: Epithelial Cells Rare HPF (Negative); RBC 0-2 HPF (0-2)
[2022-05-12 23:42] LABS: Bacteria Many HPF (Negative); C & S Indicated? Yes; Casts 0-2 Hyaline LPF (Negative); Crystals Negative HPF (Negative); Mucus Trace (Negative)
--- NOTE | 2022-05-12 23:44 | W.ED.GENAD ---
Discharge Plan Disposition Patient Disposition: [facility] INPATIENT Discharge Details Chief Complaint: Nausea/Vomit/Diar Clinical Impression: Severe nausea and vomiting, Hypomagnesemia, Alcohol withdrawal Admit Date/Time: 05/13/22 03:15 Admit Provider: Aydin Joy Attending Provider: Aydin Joy Primary Care Provider: Lavelle Galindo ED Provider: James Crenshaw Discharge Data Discharge Date/Time-TO BE ENTERED AT DEPARTURE: 05/13/22 04:12 Medical Decision Making [id number] --77-year-old female with multiple medical problems including history of alcoholism, here with abdominal pain over the past 4 to 5 days and now with nausea and vomiting over the past 1 to 2 days. Patient is tachycardic and hypertensive. She notes is not able to keep anything down including medication. Patient has tenderness in her epigastric area. I am concerned about potential for gastritis versus gastric ulcer versus pancreatitis or other acute surgical process. Plan to obtain CT of the abdomen pelvis. I will give Zofran IV for nausea. Pepcid IV for abdominal discomfort. Patient does appear dehydrated. I will give IV fluid bolus I am concerned that patient may have alcohol withdrawal. Will give Ativan 1 mg IV. Patient is quite clear that she may not be willing to be admitted to the hospital tonight should admission be recommended and will need to consider this further. Patient also with cough and rhonchi on auscultation. Consider aspiration pneumonia versus other. Plan to obtain chest x-ray. I will send COVID testing. Initial labs reviewed and hemoglobin is 8.3. Patient does have prior history of iron deficiency anemia. Magnesium is low at 1.4. I will give magnesium 1 g IV. 300 --CT of the abdomen pelvis was interpreted by radiology: IMPRESSION: Minimal pancreatitis suspected.? Gallstones and faint distal common bile duct. stone. Minimal air in the gallbladder versus air containing gallstone Grossly stable lobulated presacral mass/soft tissue lesion Patient reassessed and while she did have some initial improvement with antiemetic, nausea is returned and she is again vomiting. Patient has no focal right upper quadrant tenderness. Pain is currently epigastric and left upper quadrant. Rectal exam was performed. No gross blood. Trace positive Hemoccult. Concern for gastritis versus gastric ulcer and pancreatitis. Plan to admit for further work-up and treatment. 309 --I spoke with Dr. Joy, on-call hospitalist, discussed ED presentation and course, he will admit the patient. Care was transitioned to Dr. Joy at time of admission. HPI General Mode of arrival: EMS. Date/Time Provider Initiated Documentation: 05/12/22 22:58. Limitations to Documentation: no limitations. Information obtained by: patient. HPI Narrative: 77-year-old female with multiple medical problems including history of alcoholism, iron deficiency anemia, here with chief complaint of nausea. Patient notes nausea and associated vomiting over the past 2 days. Symptoms worsening tonight. Now severe with no modifiers. She notes associated abdominal pain over the past 4 to 5 days. Pain is localized to her epigastric area. Patient notes she is a regular drinker and has not had any alcohol in about 1 week. She does not feel that she is in withdrawal. Related Data Home Medications Medication Instructions Recorded Confirmed carboxymethylcellulose sodium 0.5 1 drp OU Q4H WHILE AWAKE #30 ea 06/20/19 05/13/22 % eye drops in a dropperette (Refresh Plus) lifitegrast 5 % eye drops in a 1 drp ophthalmic (eye) BID 08/05/20 05/13/22 dropperette (Xiidra) multivitamin (Multiple Vitamins 1 tab PO DAILY #90 tabs 09/05/20 05/13/22 tablet) venlafaxine 75 mg capsule,extended 75 mg PO DAILY #90 caps 08/05/21 05/13/22 release 24 hr ipratropium 0.5 mg-albuterol 3 mg 3 ml inhalation Q6H PRN 12/25/21 05/13/22 (2.5 mg base)/3 mL nebulization soln quetiapine 25 mg tablet See Rx Instructions PO BID #30 tabs 12/29/21 05/13/22 albuterol sulfate 90 mcg/actuation 2 puff inhalation QID PRN 02/08/22 05/13/22 aerosol inhaler (Ventolin HFA) shortness of breath or wheezing #8.5 grams amlodipine 10 mg tablet 10 mg PO DAILY #90 tabs 02/08/22 05/13/22 buspirone 5 mg tablet 5 mg PO BID #60 tabs 02/08/22 05/13/22 folic acid 1 mg tablet 1 mg PO DAILY #90 tabs 02/08/22 05/13/22 melatonin 3 mg capsule 6 mg PO HS #180 caps 02/08/22 05/13/22 metoprolol tartrate 50 mg tablet 50 mg PO DAILY #90 tabs 02/08/22 05/13/22 mirtazapine 7.5 mg tablet 7.5 mg PO QHS #90 tabs 02/08/22 05/13/22 ondansetron 4 mg disintegrating 4 mg PO Q8H PRN nausea and 02/08/22 05/13/22 tablet vomiting #20 tabs pantoprazole 40 mg tablet,delayed 40 mg PO DAILY #90 tabs 02/08/22 05/13/22 release sucralfate 1 gram tablet 1 g PO BID #60 tabs 02/08/22 05/13/22 thiamine HCl (vitamin B1) 100 mg 100 mg PO DAILY #90 tabs 02/08/22 05/13/22 tablet valacyclovir 500 mg tablet 500 mg PO DAILY #90 tabs 02/08/22 05/13/22 (Valtrex) fluticasone propionate 50 2 spray NS daily prn #16 grams 03/06/22 05/13/22 mcg/actuation nasal spray,suspension budesonide 0.5 mg/2 mL suspension 0.5 mg (2 mL) inhalation DAILY #60 05/06/22 05/13/22 for nebulization (Pulmicort) mL melatonin 3 mg capsule 3 mg PO .pm PRN sleep #90 caps 05/12/22 05/13/22 Previous Rx's Medication Instructions Recorded carboxymethylcellulose sodium 0.5 1 drp OU Q4H WHILE AWAKE #30 ea 06/20/ % eye drops in a dropperette (Refresh Plus) multivitamin (Multiple Vitamins 1 tab PO DAILY #90 tabs 09/05/20 tablet) venlafaxine 75 mg capsule,extended 75 mg PO DAILY #90 caps 08/05/21 release 24 hr quetiapine 25 mg tablet See Rx Instructions PO BID #30 tabs 12/29/21 albuterol sulfate 90 mcg/actuation 2 puff inhalation QID PRN 02/08/22 aerosol inhaler (Ventolin HFA) shortness of breath or wheezing #8.5 grams amlodipine 10 mg tablet 10 mg PO DAILY #90 tabs 02/08/22 buspirone 5 mg tablet 5 mg PO BID #60 tabs 02/08/22 folic acid 1 mg tablet 1 mg PO DAILY #90 tabs 02/08/22 melatonin 3 mg capsule 6 mg PO HS #180 caps 02/08/22 metoprolol tartrate 50 mg tablet 50 mg PO DAILY #90 tabs 02/08/22 mirtazapine 7.5 mg tablet 7.5 mg PO QHS #90 tabs 02/08/22 ondansetron 4 mg disintegrating 4 mg PO Q8H PRN nausea and 02/08/22 tablet vomiting #20 tabs pantoprazole 40 mg tablet,delayed 40 mg PO DAILY #90 tabs 02/08/22 release sucralfate 1 gram tablet 1 g PO BID #60 tabs 02/08/22 thiamine HCl (vitamin B1) 100 mg 100 mg PO DAILY #90 tabs 02/08/22 tablet valacyclovir 500 mg tablet 500 mg PO DAILY #90 tabs 02/08/22 (Valtrex) fluticasone propionate 50 2 spray NS daily prn #16 grams 03/06/22 mcg/actuation nasal spray,suspension budesonide 0.5 mg/2 mL suspension 0.5 mg (2 mL) inhalation DAILY #60 05/06/22 for nebulization (Pulmicort) mL melatonin 3 mg capsule 3 mg PO .pm PRN sleep #90 caps 05/12/22 Allergies Allergy/AdvReac Type Severity Reaction Status Date / Time Penicillins Allergy Mild Rash Verified 05/13/22 03:56 ramipril Allergy Unknown ITCHING Verified 05/13/22 03:56 meperidine [From Demerol] AdvReac Severe Nausea Verified 05/13/22 03:56 bupropion AdvReac Mild GI upset Verified 05/13/22 03:56 AMBER Inhibitors AdvReac Unknown COUGH Verified 05/13/22 03:56 alendronate sodium AdvReac Unknown GI Distress Verified 05/13/22 03:56 clarithromycin AdvReac Unknown intolerant Verified 05/13/22 03:56 paroxetine AdvReac Unknown Diarrhea Verified 05/13/22 03:56 General Stated Complaint: Nausea/Vomit/Diar JORDAN: 3 Review of Systems All systems reviewed & are unremarkable except as noted in HPI and below Constitutional Constitutional: Denies fever(s) Cardiovascular Cardiovascular: Denies chest pain Respiratory Respiratory: Reports cough Gastrointestinal Gastrointestinal: Reports as per HPI and Denies hematemesis PFSH All Active Problems (Updated 05/13/22 @ 20:24 by Gwyn Blake MD) Epigastric abdominal pain (Acute) Anemia (Chronic) Advance care planning (Acute) Gallstones (Acute) Hyperbilirubinemia (Acute) Severe nausea and vomiting (Acute) Hypomagnesemia (Acute) Alcohol withdrawal (Acute) Shortness of breath (Acute) Elevated blood pressure reading without diagnosis of hypertension (Acute) Left arm pain (Acute) Ambulatory dysfunction (Acute) Weakness (Acute) Incontinence (Acute) Urge incontinence (Acute) Anorexia (Acute) Headache (Acute) Onychomycosis (Acute) Depression (Chronic) Chest pain (Acute) Foot pain, right (Acute) Tendinitis of left rotator cuff (Acute) Macrocytosis (Acute 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 Leukopenia (Acute) Headache (Acute) Epigastric abdominal pain (Acute) Elev transaminase/LDH (Acute) due to alcohol Calcific tendinitis of left shoulder (Acute) Pulmonary mass (Acute) spiculated mass Pneumonia (Acute) Nausea & vomiting (Acute) Depression with suicidal ideation (Acute) Alcohol abuse (Chronic) Diarrhea (Acute) Epigastric pain (Acute) Nausea and vomiting (Acute) Dehydration (Acute) Hypokalemia (Acute) Discharge planning issues (Acute) C. difficile colitis (Acute) Palliative care patient (Acute) Difficult intravenous access (Acute) Multiple IV attempts, usually requires ultrasound placement. Pancreatitis (Chronic) PTSD (post-traumatic stress disorder) (Acute) Anemia (Chronic) Depression (Chronic) Foot pain, right (Acute) T12 compression fracture (Acute) Presacral mass (Chronic) Deviated nasal septum (Acute) Frequent falls (Chronic) Head injury (Acute) Transaminitis (Acute) Ambulatory dysfunction (Chronic) Shoulder pain, right (Chronic) DVT prophylaxis (Acute) Suicidal ideation (Acute) Dry eye (Acute) Pruritus (Acute) Dystrophic nail (Acute) AMBER (acute kidney injury) (Acute) Iron deficiency anemia (Chronic) Alcohol abuse (Chronic) Hypomagnesemia (Chronic) Discharge planning issues (Acute) UTI (urinary tract infection) (Acute) Fall (Acute) Atelectasis of left lung (Chronic) Advance directive on file (Acute) Nodule of upper lobe of right lung (Acute ~09/13/18) 09/13/18 [facility]; 12mm SPICULATED -kb Cataract (Chronic 11/07/15) Hypertension (Chronic) high today; she will check readings at home Hyperlipidemia (Chronic) Back pain, chronic (Chronic) Depression (Chronic) Osteopenia (Chronic) Medical History Adjustment disorder with depressed mood Alcoholic ketosis Anemia Cervical radicular pain neck pain and [facility] 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) pls refrain from alcohol Chronic alcoholism she will not stop drinking unless she checks with me, so that we can help her avert withdrawal I do not think she is capable on her own--she would need placement to achieve required goal of 3 months of sobriety Chronic diarrhea Closed right humeral fracture Corneal ulcer, right (~08/23/18) 08/23/18; [facility] Fracture of humerus, left, closed Genital herpes simplex recurrent gential; suppressive Valtrex GERD (gastroesophageal reflux disease) GI bleed (12/20/16) Hypertension Hypokalemia Hypomagnesemia Incidental lung nodule, greater than or equal to 8mm 1cm, spiculated, stable for many years, recommend f/u in 6 mo Multiple rib fractures 03/11/19 [facility] Non-cardiac chest pain (09/21/16) [facility] [place] [place] 09/21/16 NEGATIVE MP Osteoarthritis Palliative care patient (03/21/17) Pancreatitis, alcoholic, acute Peripheral edema Photophobia of right eye Pleural effusion on left 03/11/19 [facility] Presacral mass (~09/15/18) 09/15/18 [facility] Sciatica right, epidural injuections [facility] Tubular adenoma of colon (01/28/17) Urinary incontinence 01/24/13 urethral suspension and sling at [facility] [place] [place] (bladder suspension 1991) 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 Bladder repair. Repair bladder injury, simple Family History Mother No problems noted. Father , DROWNED at age 50. No problems noted. Sister Personal history of malignant neoplasm MELANOMA Sister No problems noted. Grandfather Personal history of malignant neoplasm STOMACH Grandfather Personal history of malignant neoplasm PROSTATE Grandmother Heart disease MA Acute ill-defined cerebrovascular disease Grandmother Personal history of malignant neoplasm UTERINE Aunt , MA Heart disease MA Aunt , MA Heart disease Brother No problems noted. Social History Smoking/Tobacco Use Status: Former Tobacco Use Quit Date: 08/05/20 Smoking risk assessment performed?: Yes Alcohol Intake: current Alcohol Intake frequency: 3 or more drinks per day Alcohol type: hard liquor Drug use: Never Substance use type: does not use Details: whiskey---last on Tuesday per pt Current gender identity: female Do you feel safe at home: Yes Do you feel safe in your relationship?: Yes Exam Const General: cooperative and no acute distress Orientation: alert, awake and oriented x3 HENMT Mouth: mucous membranes dry Eyes Conjunctivae: normal conjunctivae Sclera: normal sclerae Neck Neck: trachea midline and supple Resp Auscultation: rhonchi and no wheezes Cardio Rate: tachycardic Rhythm: regular rhythm Heart Sounds: no murmurs GI Palpation: soft, not firm, no guarding, no masses, not rigid and tender in the epigastrum; with no rebound tenderness Auscultation: hyperactive bowel sounds Skin General skin exam: no rashes or lesions noted Neuro General: patient alert, patient awake and tone normal Other: resting tremor Extrem General: no edema Psych Appearance: grossly normal Mental Status: mental status grossly normal Course Vital Signs Vital signs: Vital Signs Temperature 36.9 C 05/12/22 23:01 Pulse 116 H 05/12/22 23:01 Blood Pressure 188/100 H 05/12/22 23:01 Pulse Oximetry 97 05/12/22 23:01 Temperature 36.9 C 05/12/22 23:01 Temperature Source Tympanic 05/12/22 23:01 Pulse 116 H 05/12/22 23:01 Respiratory Effort 05/12/22 23:09 Blood Pressure 188/100 H 05/12/22 23:01 Blood Pressure Position Supine 05/12/22 23:01 Pulse Oximetry 97 05/12/22 23:01 Oxygen Delivery Method Room Air 05/12/22 23:01 Oxygen Flow Rate 0 05/12/22 23:01 Pain Level 6 05/12/22 23:01 Lab/Test Results Lab/Test Results: 05/12/22 23:20 Urine - Reflex from Ua Urine Culture - Pending Laboratory Tests Range/Units 05/12/22 05/12/22 05/12/22 23:12 23:12 23:20 WBC (4.4-10.8) 10^3/uL 4.37 L RBC (3.93-5.22) 10^6/uL 3.50 L Hgb (11.2-15.7) g/dL 8.3 L Hct (36.0-46.0) % 28.6 L MCV (80-95) fL 82 MCH (27.0-33.0) pg 23.7 L MCHC (32.0-36.0) % 29.0 L RDW (11.7-14.6) % 20.5 H Plt Count (130-400) 10^3/uL 106 L MPV (8.0-11.0) fL 8.4 Immature Gran % 0.9 Neutrophils % 90.4 Lymphocytes % 4.3 Monocytes % 3.9 Eosinophils % 0.0 Basophils % 0.5 Nucleated RBC % (0.0-0.3) % 0.0 Absolute Neutrophils (1.2-6.7) 10^3/uL 3.95 Absolute Lymphocytes (1.2-3.4) 10^3/uL 0.19 L Absolute Monocytes (0.1-0.8) 10^3/uL 0.17 Absolute Eosinophils (0.0-0.7) 10^3/uL 0.00 Absolute Basophils (0.0-0.2) 10^3/uL 0.02 RBC Morphology See Below Anisocytosis 2+ Microcytosis 1+ Sodium (136-145) mmol/L 138 Potassium (3.5-5.1) mmol/L 4.0 Chloride (98-107) mmol/L 97 L Carbon Dioxide (21.0-32.0) mmol/L 22.3 Anion Gap (3-11) mmol/L 18.7 H BUN (7-18) mg/dL 19 H Creatinine (0.55-1.02) mg/dL 1.1 H Est GFR (CKD-EPI 2020) (mL/min/1.73m2) 52.08 Glucose (74-106) mg/dL 243 H Calcium (8.5-10.1) mg/dL 10.5 H Magnesium (1.8-2.4) mg/dL 1.4 L Total Bilirubin (0.2-1.0) mg/dL 3.4 H AST (15-37) U/L 72 H ALT (14-59) U/L 68 H Alkaline Phosphatase (46-116) U/L 138 H Troponin I (<or=60) ng/L < 50 Total Protein (6.4-8.2) g/dL 8.6 H Albumin (3.4-5.0) g/dL 4.4 Lipase (73-393) U/L 144 Urine Color (Yellow) Yellow Urine Clarity (Clear) Sl Cloudy Urine pH (5-8) 6.5 Ur Specific [place] (1.005-1.025) 1.025 Urine Protein (Negative) mg/dL 100 H Urine Ketones (Negative) mg/dL >=160 H Urine Blood (Negative) Trace-lysed H Urine Nitrite (Negative) Negative Urine Bilirubin (Negative) Negative Urine Urobilinogen (Up TO 0.2) EU/dL 2.0 H Ur Leukocyte Esterase (Negative) Negative Urine RBC (0-2) HPF 0-2 Urine WBC (0-5) HPF 3-5 Ur Epithelial Cells (Negative) HPF Rare Urine Crystals (Negative) HPF Negative Urine Bacteria (Negative) HPF Many Urine Casts (Negative) LPF 0-2 Hyaline Urine Mucus (Negative) Trace Ur Culture Indicated? Yes Urine Glucose (Negative) mg/dL 100 PAWSS Have you Been Recently Intoxicated or Drunk Within the Last 30 days?: Yes Have you Ever Experienced Previous Episodes of Alcohol Withdrawal?: No Have you ever Experienced Withdrawal Seizures?: No Have you ever Experienced Delirium Tremens(DT)s?: No Have you ever undergone Alcohol Rehabilitation Treatment (i.e, inpt ot outpatient treatment programs)?: No Have you ever Experienced Blackouts?: No Have you ever Combined Alcohol with other Downers within the last 90 days?: No Have you ever Combined Alcohol with any other Substance of Abuse during the last 90 days?: No Evidence of Increased Autonomic Activity (i.e. HR>120, tremor, sweating, agitation, nausea)?: No Result: 1
--- NOTE | 2022-05-12 23:45 | DI.RAD_ITS ---
Exam(s) XR CHEST 2V PA LATERAL EXAM: XR CHEST 2V PA LATERAL CLINICAL HISTORY: cough TECHNIQUE: 2D digital imaging was performed of the chest. Two images were obtained. PA and lateral views were obtained. COMPARISON: CR XR CHEST 2V PA LATERAL from 04/14/2020 CR XR PORTABLE CHEST AP from 04/16/2021 CR XR PORTABLE CHEST AP from 05/12/2021 FINDINGS: MEDIASTINUM: Normal. HEART: Cardiomegaly. PULMONARY VASCULATURE: Normal. LUNGS: Mild increased prominence of the interstitium bilaterally. No focal consolidating infiltrates are seen. PLEURAL SPACE: No pleural effusion or pneumothorax. BONE:Within normal limits for the patient's age. Old healed bilateral rib fractures. OTHER FINDINGS:Normal. IMPRESSION: Question mild interstitial pneumonitis or edema. DATA REPOSITORY: RADIATION DOSE DELIVERED:
[2022-05-12 23:46] LABS: *AMPHETAMINES SCREEN URINE Negative (Negative); *BARBITURATES SCREEN URINE Negative (Negative); *BENZODIAZEPINES SCREEN URINE Negative (Negative); Cannabinoids THC Negative (Negative); Cocaine Screen,Urine Negative (Negative); METHADONE URINE SCREEN Negative (Negative); OPIATES URINE SCREEN Negative (Negative); Tricyclic Antidepressants Negative (Negative)
[2022-05-12 23:47] VITALS: BP 192/94; PULSE 115; PULSE 134; RESP 34; O2SAT 97
[2022-05-12 23:47] LABS: ETHANOL BLOOD < 3.0 mg/dL (<10)
[2022-05-12 23:48] VITALS: PULSE 127; RESP 25; O2SAT 97
[2022-05-12 23:50] VITALS: PULSE 112; RESP 19; O2SAT 97
[2022-05-13] VITALS (43 sets, daily range): BP systolic 149–198; BP diastolic 77–100; PULSE 85–127; RESP 16–34; TEMP 36.6–37.7; O2SAT 89–97
--- NOTE | 2022-05-13 | DI.US_ITS ---
Exam(s) US ABDOMEN LIMITED EXAM: US ABDOMEN LIMITED CLINICAL HISTORY: Abd pain, gallstones TECHNIQUE: Ultrasound abdomen performed using standard protocol. COMPARISON: US US ABDOMEN LIMITED from 10/12/[address] ABDOMEN PELVIS W from 05/13/2022 FINDINGS: PANCREAS: Normal where visualized. LIVER: Normal. Hepatopedal flow in the Portal Vein. The liver measures in 14.5 cm length. GALLBLADDER:Multiple gallstones are present. There are some nonmobile gallstones present. There is sludge seen within the gallbladder. The gallbladder wall measures 4.7 mm. There is a small amount o f pericholecystic fluid. BILIARY SYSTEM: Common bile duct measures < 7 mm. No intrahepatic biliary ductal dilation. GURROLA'S SIGN: Positive RIGHT KIDNEY: Kidney is normal in size. No evidence of renal calculi. No evidence of hydronephrosis. There is a 3.1 cm simple cyst in the lower pole of the right kidney. This is unchanged compared to prior examinations. No follow-up is recommended. ASCITES: None seen. ABDOMINAL AORTA AND IVC: Visualized portions normal caliber. IMPRESSION: Findings suspicious for acute cholecystitis. DATA REPOSITORY:
[2022-05-13] MEDS: MAGNESIUM SULFATE 1 GM/100 ML BAG IVPB (00:30)
[2022-05-13 00:37] LABS: Source Nasal/Nares
[2022-05-13 01:09] LABS: COVID-19 PCR Negative (Negative)
[2022-05-13] MEDS: Omnipaque 350 MG/ML 100 ML BTL IJ (01:31)
--- NOTE | 2022-05-13 02:14 | DI.VRAD_ITS ---
PROCEDURE INFORMATION: Exam: CT Abdomen And Pelvis With Contrast Exam date and time: 05/13/2022 1:15 AM Age: 77 years old Clinical indication: Other: Upper abdominal pain x 5 days, n/v x2 days; Localized TECHNIQUE: Imaging protocol: Computed tomography of the abdomen and pelvis with contrast. Radiation optimization: All CT scans at this facility use at least one of these dose optimization techniques: automated exposure control; mA and/or kV adjustment per patient size (includes targeted exams where dose is matched to clinical indication); or iterative reconstruction. Contrast material: OMNI 350; Contrast volume: 100 ml; Contrast route: INTRAVENOUS (IV); COMPARISON: CT ABDOMEN PELVIS W 10/09/2021 10:28 AM FINDINGS: Minimal subsegmental atelectasis versus scarring. Chronic rib fractures bilaterally. Moderate to severe cardiomegaly Liver: Fatty infiltration No mass. Gallbladder and bile ducts: Calcified stones. Minimal air in the gallbladder versus air containing gallstone. No ductal dilation. Faint distal common bile duct stone axial image 30 Pancreas: Question minimal infiltration surrounding the pancreatic uncinate process No ductal dilation. Spleen: No splenomegaly. Adrenal glands: No mass. Kidneys and ureters: Renal bilaterally a No hydronephrosis. Stomach and bowel: Unremarkable. No obstruction. No mucosal thickening. Appendix: No evidence of appendicitis. Intraperitoneal space: Lobulated soft tissue mass measuring 5.4 x 3.4 cm in the presacral space stable. Minimal ascites No free air. No significant fluid collection. Vasculature: Unremarkable. No abdominal aortic aneurysm. Lymph nodes: Please see pre sacral findings Urinary bladder: Unremarkable as visualized. Reproductive: Calcification in the left adnexa and small cyst. Bones/joints: No acute fracture. Soft tissues: Unremarkable. IMPRESSION: Minimal pancreatitis suspected. Gallstones and faint distal common bile duct stone Minimal air in the gallbladder versus air containing gallstone Grossly stable lobulated presacral mass/soft tissue lesion Dictated and Authenticated by: Dylon Carter MD. Ordering:ALICIA Ramirez MD
--- NOTE | 2022-05-13 02:16 | DI.VRAD_ITS ---
PROCEDURE INFORMATION: Exam: XR Chest Exam date and time: 05/13/2022 1:25 AM Age: 77 years old Clinical indication: Cough TECHNIQUE: Imaging protocol: Radiologic exam of the chest. Views: 2 views. COMPARISON: CR XR PORTABLE CHEST AP 05/12/2021 9:44 AM FINDINGS: Lungs: Interstitial prominence may be slightly increased No consolidation. Pleural spaces: No pleural effusion. No pneumothorax. Heart/Mediastinum: Grossly stable cardiomegaly. Bones/joints: Grossly stable. IMPRESSION: Question minimal interstitial pneumonitis versus edema Dictated and Authenticated by: Dylon Carter MD. Ordering:ALICIA Ramirez MD
[2022-05-13 02:25] LABS: Troponin I < 50 ng/L (<or=60)
[2022-05-13] MEDS: Prochlorperazine 10 MG/2 ML VIAL (03:00)
--- NOTE | 2022-05-13 03:37 | W.PM.HP.N ---
Date of service: 05/13/22 Time of Service: 03:37 Assessment and Plan Assessment and plan (1) Hypomagnesemia: Status: Acute Assessment and plan: Replete and monitor (2) Palliative care patient: Assessment and plan: Seen on 05/12/22 and was doing reportedly well at the time. She had been a DNR/DNI but recently changed to Full Code status. (3) Alcohol abuse: Status: Acute Assessment and plan: Etoh level negative at time of this admission. Abd symptoms started appx 5 days ago. Historically she has had no significant withdrawal issues. Ativen prn and then CIWA scoring if necessary. Folate and thiamine supplementation. (4) Pancreatitis: Status: Chronic Assessment and plan: Acute on chronic. CT showed question of minimal infiltration surrounding the pancreatic uncinate process No ductal dilation Now with N/V. Bowel/pancreatic rest; sips of water and ice chips OK. PRN compazine. She was not administered any narcotics in the ED; complained mostly of N/V. If needed, dilaudid 0.5mg IV Q4H prn pain. Qualifiers: Acute pancreatitis complication: no infection or necrosis Chronicity: acute Pancreatitis type: alcohol induced Qualified Code(s): K85.20 - Alcohol induced acute pancreatitis without necrosis or infection (5) Anemia: Status: Chronic Assessment and plan: Hgb 8.3. Stool was tr heme positive. Protonix IV initiated in ED. Monitor. (6) Transaminitis: Status: Acute Assessment and plan: Likely alcoholic hepatitis. Monitor. (7) Hyperbilirubinemia: Status: Acute Assessment and plan: Chronically high, but higher than previous lab in [facility] system. No biliary ductal dilation noted on CT. + gallstones. Related to Etoh abuse. (8) Gallstones: Status: Acute Assessment and plan: No biliary ductal dilation. Biliary US ordered. (9) Depression: Status: Chronic Assessment and plan: Cont venlafaxine, buspar, mirtazapine History of Present Illness History of Present Illness Chief Complaint: Abdominal pain, nausea and vomitting. Narrative: This is a 77 yo female that has had multiple admissions to [facility]. PMH of alcohol abuse, pancreatitis, depression, transaminitis, AMBER, Fe def anemia, HTN. She presented currently with 4-5 days of abdominal pain but more now with N/V. She has not been able to keep her medications down for 1-2 days. She did, however have a clinic visit with palliative care on 05/12/22 and did not mention pain, N/V at that time. She now endorses some cough. No fever or chills. No diarrhea. No CP/palpitations. In the ED her Hgb was 8.3. Mg low at 1.4. WBC count mildly low. CT abd/pelvis: Minimal pancreatitis suspected.? Gallstones and faint distal common bile duct. stone. Minimal air in the gallbladder versus air containing gallstone Grossly stable lobulated presacral mass/soft tissue lesion She was administered IV fluids, antiemetics, IV protonix and a dose of IV ativan. Admitted for further care and workup. Review of Systems All systems reviewed & are unremarkable except as noted in HPI and below PFSH All Active Problems (Updated 05/13/22 @ 03:42 by Aydin Joy MD) Gallstones (Acute) Hyperbilirubinemia (Acute) Severe nausea and vomiting (Acute) Hypomagnesemia (Acute) Alcohol withdrawal (Acute) Shortness of breath (Acute) Elevated blood pressure reading without diagnosis of hypertension (Acute) Left arm pain (Acute) Ambulatory dysfunction (Acute) Weakness (Acute) Incontinence (Acute) Urge incontinence (Acute) Anorexia (Acute) Headache (Acute) Onychomycosis (Acute) Depression (Chronic) Abdominal pain (Acute) Chest pain (Acute) Foot pain, right (Acute) Tendinitis of left rotator cuff (Acute) Macrocytosis (Acute 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 Leukopenia (Acute) Headache (Acute) Epigastric abdominal pain (Acute) Elev transaminase/LDH (Acute) due to alcohol Calcific tendinitis of left shoulder (Acute) Pulmonary mass (Acute) spiculated mass Pneumonia (Acute) Nausea & vomiting (Acute) Abdominal pain (Acute) Depression with suicidal ideation (Acute) Alcohol abuse (Acute) Diarrhea (Acute) Epigastric pain (Acute) Nausea and vomiting (Acute) Dehydration (Acute) Hypokalemia (Acute) Discharge planning issues (Acute) C. difficile colitis (Acute) Palliative care patient (Acute) Difficult intravenous access (Acute) Multiple IV attempts, usually requires ultrasound placement. Pancreatitis (Chronic) PTSD (post-traumatic stress disorder) (Acute) Anemia (Chronic) Depression (Chronic) Foot pain, right (Acute) T12 compression fracture (Acute) Presacral mass (Chronic) Deviated nasal septum (Acute) Frequent falls (Chronic) Head injury (Acute) Transaminitis (Acute) Ambulatory dysfunction (Chronic) Shoulder pain, right (Chronic) DVT prophylaxis (Acute) Suicidal ideation (Acute) Dry eye (Acute) Pruritus (Acute) Dystrophic nail (Acute) AMBER (acute kidney injury) (Acute) Iron deficiency anemia (Chronic) Alcohol abuse (Chronic) Hypomagnesemia (Chronic) Discharge planning issues (Acute) UTI (urinary tract infection) (Acute) Fall (Acute) Atelectasis of left lung (Chronic) Advance directive on file (Acute) Nodule of upper lobe of right lung (Acute ~09/13/18) 09/13/18 [facility]; 12mm SPICULATED -kb Cataract (Chronic 11/07/15) Hypertension (Chronic) high today; she will check readings at home Hyperlipidemia (Chronic) Back pain, chronic (Chronic) Depression (Chronic) Osteopenia (Chronic) Medical History Adjustment disorder with depressed mood Alcoholic ketosis Anemia Cervical radicular pain neck pain and DJD [facility] 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) pls refrain from alcohol Chronic alcoholism she will not stop drinking unless she checks with me, so that we can help her avert withdrawal I do not think she is capable on her own--she would need placement to achieve required goal of 3 months of sobriety Chronic diarrhea Closed right humeral fracture Corneal ulcer, right (~08/23/18) 08/23/18; [facility] Fracture of humerus, left, closed Genital herpes simplex recurrent gential; suppressive Valtrex GERD (gastroesophageal reflux disease) GI bleed (12/20/16) Hypertension Hypokalemia Hypomagnesemia Incidental lung nodule, greater than or equal to 8mm 1cm, spiculated, stable for many years, recommend f/u in 6 mo Multiple rib fractures 03/11/19 [facility] Non-cardiac chest pain (09/21/16) [facility] [place] 09/21/16 NEGATIVE MP Osteoarthritis Palliative care patient (03/21/17) Pancreatitis, alcoholic, acute Peripheral edema Photophobia of right eye Pleural effusion on left 03/11/19 [facility] Presacral mass (~09/15/18) 09/15/18 [facility] Sciatica right, epidural injuections [facility] Tubular adenoma of colon (01/28/17) Urinary incontinence 01/24/13 urethral suspension and sling at [facility] [place] (bladder suspension 1991) 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 Bladder repair. Repair bladder injury, simple Family History Mother No problems noted. Father , DROWNED at age 50. No problems noted. Sister Personal history of malignant neoplasm MELANOMA Sister No problems noted. Grandfather Personal history of malignant neoplasm STOMACH Grandfather Personal history of malignant neoplasm PROSTATE Grandmother Heart disease DE Acute ill-defined cerebrovascular disease Grandmother Personal history of malignant neoplasm UTERINE Aunt , DE Heart disease DE Aunt , DE Heart disease Brother No problems noted. Social History Smoking/Tobacco Use Status: Former Tobacco Use Quit Date: 08/05/20 Smoking risk assessment performed?: Yes Alcohol Intake: current Alcohol Intake frequency: 3 or more drinks per day Alcohol type: hard liquor Drug use: Never Substance use type: does not use Details: whiskey---last on Tuesday per pt Current gender identity: female Do you feel safe at home: Yes Do you feel safe in your relationship?: Yes Meds Allergies and Home Medications Allergies Allergy/AdvReac Type Severity Reaction Status Date / Time Penicillins Allergy Mild Rash Verified 05/13/22 03:56 ramipril Allergy Unknown ITCHING Verified 05/13/22 03:56 meperidine [From Demerol] AdvReac Severe Nausea Verified 05/13/22 03:56 bupropion AdvReac Mild GI upset Verified 05/13/22 03:56 AMBER Inhibitors AdvReac Unknown COUGH Verified 05/13/22 03:56 alendronate sodium AdvReac Unknown GI Distress Verified 05/13/22 03:56 clarithromycin AdvReac Unknown intolerant Verified 05/13/22 03:56 paroxetine AdvReac Unknown Diarrhea Verified 05/13/22 03:56 Home Medications Medication Instructions Recorded Confirmed Type carboxymethylcellulose sodium 0.5 1 drp OU Q4H WHILE AWAKE #30 ea 06/20/19 05/13/22 Rx % eye drops in a dropperette (Refresh Plus) lifitegrast 5 % eye drops in a 1 drp ophthalmic (eye) BID 08/05/20 05/13/22 History dropperette (Xiidra) multivitamin (Multiple Vitamins 1 tab PO DAILY #90 tabs 09/05/20 05/13/22 Rx tablet) venlafaxine 75 mg capsule,extended 75 mg PO DAILY #90 caps 08/05/21 05/13/22 Rx release 24 hr ipratropium 0.5 mg-albuterol 3 mg 3 ml inhalation Q6H PRN 12/25/21 05/13/22 History (2.5 mg base)/3 mL nebulization soln quetiapine 25 mg tablet See Rx Instructions PO BID #30 tabs 12/29/21 05/13/22 Rx albuterol sulfate 90 mcg/actuation 2 puff inhalation QID PRN 02/08/22 05/13/22 Rx aerosol inhaler (Ventolin HFA) shortness of breath or wheezing #8.5 grams amlodipine 10 mg tablet 10 mg PO DAILY #90 tabs 02/08/22 05/13/22 Rx buspirone 5 mg tablet 5 mg PO BID #60 tabs 02/08/22 05/13/22 Rx folic acid 1 mg tablet 1 mg PO DAILY #90 tabs 02/08/22 05/13/22 Rx melatonin 3 mg capsule 6 mg PO HS #180 caps 02/08/22 05/13/22 Rx metoprolol tartrate 50 mg tablet 50 mg PO DAILY #90 tabs 02/08/22 05/13/22 Rx mirtazapine 7.5 mg tablet 7.5 mg PO QHS #90 tabs 02/08/22 05/13/22 Rx ondansetron 4 mg disintegrating 4 mg PO Q8H PRN nausea and 02/08/22 05/13/22 Rx tablet vomiting #20 tabs pantoprazole 40 mg tablet,delayed 40 mg PO DAILY #90 tabs 02/08/22 05/13/22 Rx release sucralfate 1 gram tablet 1 g PO BID #60 tabs 02/08/22 05/13/22 Rx thiamine HCl (vitamin B1) 100 mg 100 mg PO DAILY #90 tabs 02/08/22 05/13/22 Rx tablet valacyclovir 500 mg tablet 500 mg PO DAILY #90 tabs 02/08/22 05/13/22 Rx (Valtrex) fluticasone propionate 50 2 spray NS daily prn #16 grams 03/06/22 05/13/22 Rx mcg/actuation nasal spray,suspension budesonide 0.5 mg/2 mL suspension 0.5 mg (2 mL) inhalation DAILY #60 05/06/22 05/13/22 Rx for nebulization (Pulmicort) mL melatonin 3 mg capsule 3 mg PO .pm PRN sleep #90 caps 05/12/22 05/13/22 Rx Exam Narrative Exam Narrative: Patient lying in bed with eyes closed. Opens eyes when her name is called but she does not verbally interact. Const General: no acute distress and frail appearing Nutritional Appearance: average body habitus Eyes General: appearance normal, both eyes and all related structures Sclera: sclerae normal Resp Effort & Inspection: normal respiratory effort Auscultation: clear to auscultation bilaterally Cardio Rate: regular rate Rhythm: regular rhythm Heart Sounds: S1 normal and S2 normal GI Inspection: non-distended Palpation: soft and nontender Skin General skin exam: no rashes or lesions noted Neuro General: moves all extremities and other (Doesn't participate in exam and follow commands) Extrem General: normal to inspection and no pedal edema Psych Attitude: avoids eye contact and other (appears to refuse to interact. ) Results Labs Result diagrams: 05/12/22 23:12 05/12/22 23:12 Labs: Laboratory Results - last 24 hr 05/12/22 05/12/22 05/12/22 23:12 23:12 23:20 WBC 4.37 L RBC 3.50 L Hgb 8.3 L Hct 28.6 L MCV 82 MCH 23.7 L MCHC 29.0 L RDW 20.5 H Plt Count 106 L MPV 8.4 Immature Gran % 0.9 Neutrophils % 90.4 Lymphocytes % 4.3 Monocytes % 3.9 Eosinophils % 0.0 Basophils % 0.5 Nucleated RBC % 0.0 Absolute Neutrophils 3.95 Absolute Lymphocytes 0.19 L Absolute Monocytes 0.17 Absolute Eosinophils 0.00 Absolute Basophils 0.02 RBC Morphology See Below Anisocytosis 2+ Microcytosis 1+ Sodium 138 Potassium 4.0 Chloride 97 L Carbon Dioxide 22.3 Anion Gap 18.7 H BUN 19 H Creatinine 1.1 H Est GFR (CKD-EPI 2020) 52.08 Glucose 243 H Calcium 10.5 H Magnesium 1.4 L Total Bilirubin 3.4 H AST 72 H ALT 68 H Alkaline Phosphatase 138 H Troponin I < 50 Total Protein 8.6 H Albumin 4.4 Lipase 144 Urine Color Urine Clarity Urine pH Ur Specific Brainard Urine Protein Urine Ketones Urine Blood Urine Nitrite Urine Bilirubin Urine Urobilinogen Ur Leukocyte Esterase Urine RBC Urine WBC Ur Epithelial Cells Urine Crystals Urine Bacteria Urine Casts Urine Mucus Ur Culture Indicated? Urine Glucose Urine Opiates Screen Negative Urine Methadone Screen Negative Ur Barbiturates Screen Negative Ur Tricyclics Screen Negative Ur Amphetamines Screen Negative U Benzodiazepines Scrn Negative Urine Cocaine Screen Negative Ur THC Screen Negative Ethyl Alcohol < 3.0 COVID-19 Source SARS-CoV-2 (PCR) 05/12/22 05/13/22 05/13/22 23:20 00:33 01:50 WBC RBC Hgb Hct MCV MCH MCHC RDW Plt Count MPV Immature Gran % Neutrophils % Lymphocytes % Monocytes % Eosinophils % Basophils % Nucleated RBC % Absolute Neutrophils Absolute Lymphocytes Absolute Monocytes Absolute Eosinophils Absolute Basophils RBC Morphology Anisocytosis Microcytosis Sodium Potassium Chloride Carbon Dioxide Anion Gap BUN Creatinine Est GFR (CKD-EPI 2020) Glucose Calcium Magnesium Total Bilirubin AST ALT Alkaline Phosphatase Troponin I < 50 Total Protein Albumin Lipase Urine Color Yellow Urine Clarity Sl Cloudy Urine pH 6.5 Ur Specific Brainard 1.025 Urine Protein 100 H Urine Ketones >=160 H Urine Blood Trace-lysed H Urine Nitrite Negative Urine Bilirubin Negative Urine Urobilinogen 2.0 H Ur Leukocyte Esterase Negative Urine RBC 0-2 Urine WBC 3-5 Ur Epithelial Cells Rare Urine Crystals Negative Urine Bacteria Many Urine Casts 0-2 Hyaline Urine Mucus Trace Ur Culture Indicated? Yes Urine Glucose 100 Urine Opiates Screen Urine Methadone Screen Ur Barbiturates Screen Ur Tricyclics Screen Ur Amphetamines Screen U Benzodiazepines Scrn Urine Cocaine Screen Ur THC Screen Ethyl Alcohol COVID-19 Source Nasal/Nares SARS-CoV-2 (PCR) Negative Last Vital Signs Temp 36.9 C 05/12/22 23:01 Pulse 116 H 05/12/22 23:01 BP 188/100 H 05/12/22 23:01 Pulse Ox 97 05/12/22 23:01 PAWSS Have you Been Recently Intoxicated or Drunk Within the Last 30 days?: Yes Have you Ever Experienced Previous Episodes of Alcohol Withdrawal?: No Have you ever Experienced Withdrawal Seizures?: No Have you ever Experienced Delirium Tremens(DT)s?: No Have you ever undergone Alcohol Rehabilitation Treatment (i.e, inpt ot outpatient treatment programs)?: No Have you ever Experienced Blackouts?: No Have you ever Combined Alcohol with other Downers within the last 90 days?: No Have you ever Combined Alcohol with any other Substance of Abuse during the last 90 days?: No Evidence of Increased Autonomic Activity (i.e. HR>120, tremor, sweating, agitation, nausea)?: No Result: 1
[2022-05-13] MEDS: Pantoprazole 40 MG VIAL 80 MG IVP (03:47)
--- NOTE | 2022-05-13 05:10 | NUR.NOTE ---
Nursing Note: Patient arrived drowsy and difficult to arouse for admission intake questions. Patient was given Lorazepam and multiple antiemetics in ED that may be contributing to her drowsiness. Head to Toe assessment completed and in Part 2. Will ask patient home questions when she wakes up.
[2022-05-13] MEDS: Lactated Ringers 1,000 ML 100 ML IV ×2 (05:19→16:11)
[2022-05-13] MEDS: MAGNESIUM SULFATE 2 GM/50 ML BAG IVPB (05:19)
[2022-05-13 07:18] LABS: Abs Immature Grans 0.05 10^3/uL (0.0-0.06); Absolute Basophil Count 0.01 10^3/uL (0.0-0.2); Absolute Lymphocyte Count 0.31 10^3/uL (1.2-3.4); Absolute Monocyte Count 0.32 10^3/uL (0.1-0.8); Absolute Neutrophil Count 2.23 10^3/uL (1.2-6.7); Basophils % 0.3; HCT 26.7 % (36.0-46.0); HGB 7.9 g/dL (11.2-15.7); Immature Grans % 1.7; Lymphocytes % 10.6; MCH 24.3 pg (27.0-33.0); MCHC 29.6 % (32.0-36.0); MCV 82 fL (80-95); MPV 9.4 fL (8.0-11.0); Neutrophils % 76.4; RBC 3.25 10^6/uL (3.93-5.22); RDW 20.6 % (11.7-14.6); RDW-SD 61.3 fL; WBC 2.92 10^3/uL (4.4-10.8)
[2022-05-13 07:45] LABS: ALT 53 U/L (14-59); AST 45 U/L (15-37); Albumin 3.7 g/dL (3.4-5.0); Alkaline Phosphatase 120 U/L (46-116); Anion Gap 10.4 mmol/L (3-11); BUN 15 mg/dL (7-18); Bilirubin, Total 3.3 mg/dL (0.2-1.0); CO2 28.6 mmol/L (21.0-32.0); CREATININE 0.9 mg/dL (0.55-1.02); Calcium 10.2 mg/dL (8.5-10.1); Chloride 100 mmol/L (98-107); Estimated GFR 66.26 (mL/min/1.73m2); Glucose 156 mg/dL (74-106); Potassium 3.8 mmol/L (3.5-5.1); Sodium 139 mmol/L (136-145); Total Protein 7.5 g/dL (6.4-8.2)
[2022-05-13 08:00] LABS: Platelet Count 91 10^3/uL (130-400)
[2022-05-13 08:01] LABS: Anisocytosis 2+; Basophilic Stippling Present; Diff Comment Diff Reviewed; Hypochromasia 2+; Polychromasia Present
[2022-05-13 08:18] LABS: Procalcitonin 0.2 ng/mL
[2022-05-13] MEDS: Pantoprazole 40 MG VIAL IVP ×2 (09:20→20:34)
[2022-05-13] MEDS: Normal Saline Flush 10 ML SYR IVP (09:20)
[2022-05-13] MEDS: Refresh PLUS Eye Drops 0.4ml OU ×4 (09:20→20:34)
[2022-05-13] MEDS: Sucralfate 1 GM TAB PO ×4 (09:21→22:02)
[2022-05-13] MEDS: QUEtiapine 25 MG TAB 12.5 MG PO ×2 (09:21→20:35)
[2022-05-13] MEDS: Folic Acid 1 MG TAB PO (09:21)
[2022-05-13] MEDS: Metoprolol 50 MG TAB PO (09:21)
[2022-05-13] MEDS: busPIRone 5 MG TAB PO ×2 (09:21→20:34)
[2022-05-13] MEDS: valACYclovir 500 MG TAB PO ×2 (09:21→20:38)
[2022-05-13] MEDS: Thiamine 100 MG TAB PO (09:21)
[2022-05-13] MEDS: Venlafaxine 75 MG CAPCR PO (09:22)
[2022-05-13] MEDS: amLODIPine 10 MG TAB PO (09:22)
--- NOTE | 2022-05-13 10:34 | INITIAL_ITS ---
- If Service Date Differs Date of service: 05/13/22 Time of Service: 10:34 Care Management Initial Assess REASON FOR HOSPITALIZATION:: Pancreatitis PAST MEDICAL HISTORY/PAST SURGICAL HISTORY:: All Active Problems. Gallstones (Acute). Hyperbilirubinemia (Acute). Severe nausea and vomiting (Acute). Hypomagnesemia (Acute). Alcohol withdrawal (Acute). Shortness of breath (Acute). Elevated blood pressure reading without diagnosis of hypertension (Acute). Left arm pain (Acute). Ambulatory dysfunction (Acute). Weakness (Acute). Incontinence (Acute). Urge incontinence (Acute). Anorexia (Acute). Headache (Acute). Onychomycosis (Acute). Depression (Chronic). Abdominal pain (Acute). Chest pain (Acute). Foot pain, right (Acute). Tendinitis of left rotator cuff (Acute). Macrocytosis (Acute 09/26/14). due to alcohol. Leukopenia (Acute). Headache (Acute). Epigastric abdominal pain (Acute). Elev transaminase/LDH (Acute). due to alcohol. Calcific tendinitis of left shoulder (Acute). Pulmonary mass (Acute). spiculated mass. Pneumonia (Acute). Nausea & vomiting (Acute). Abdominal pain (Acute). Depression with suicidal ideation (Acute). Alcohol abuse (Acute). Diarrhea (Acute). Epigastric pain (Acute). Nausea and vomiting (Acute). Dehydration (Acute). Hypokalemia (Acute). Discharge planning issues (Acute). C. difficile colitis (Acute). Palliative care patient (Acute). Difficult intravenous access (Acute). Multiple IV attempts, usually requires ultrasound placement. Pancreatitis (Chronic). PTSD (post-traumatic stress disorder) (Acute). Anemia (Chronic). Depression (Chronic). Foot pain, right (Acute). T12 compression fracture (Acute). Presacral mass (Chronic). Deviated nasal septum (Acute). Frequent falls (Chronic). Head injury (Acute). Transaminitis (Acute). Ambulatory dysfunction (Chronic). Shoulder pain, right (Chronic). DVT prophylaxis (Acute). Suicidal ideation (Acute). Dry eye (Acute). Pruritus (Acute). Dystrophic nail (Acute). AMBER (acute kidney injury) (Acute). Iron deficiency anemia (Chronic). Alcohol abuse (Chronic). Hypomagnesemia (Chronic). Discharge planning issues (Acute). UTI (urinary tract infection) (Acute). Fall (Acute). Atelectasis of left lung (Chronic). Advance directive on file (Acute). Nodule of upper lobe of right lung (Acute ~09/13/18). 09/13/18 [facility]; 12mm SPICULATED -kb. Cataract (Chronic 11/07/15). Hypertension (Chronic). high today; she will check readings at home. Hyperlipidemia (Chronic). Back pain, chronic (Chronic). Depression (Chronic). Osteopenia (Chronic). Medical History. Adjustment disorder with depressed mood. Alcoholic ketosis. Anemia. Cervical radicular pain. neck pain and DJD. [facility]. 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). pls refrain from alcohol. Chronic alcoholism. she will not stop drinking unless she checks with me, so that we can help her avert withdrawal. I do not think she is capable on her own--she would need placement to achieve required goal of 3 months of sobriety. Chronic diarrhea. Closed right humeral fracture. Corneal ulcer, right (~08/23/18). 08/23/18; [facility]. Fracture of humerus, left, closed. Genital herpes simplex. recurrent gential; suppressive Valtrex. GERD (gastroesophageal reflux disease). GI bleed (12/20/16). Hypertension. Hypokalemia. Hypomagnesemia. Incidental lung nodule, greater than or equal to 8mm. 1cm, spiculated, stable for many years, recommend f/u in 6 mo. Multiple rib fractures. 03/11/19 [facility]. Non-cardiac chest pain (09/21/16). [facility] [place] 09/21/16 NEGATIVE MP. Osteoarthritis. Palliative care patient (03/21/17). Pancreatitis, alcoholic, acute. Peripheral edema. Photophobia of right eye. Pleural effusion on left. 03/11/19 [facility]. 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 09/15/18 [facility]. Sciatica. right, epidural injuections. [facility]. Tubular adenoma of colon (01/28/17). Urinary incontinence. 01/24/13 urethral suspension and sling at [facility] [place]. (bladder suspension 1991). Vision loss of right eye. 08/17/18;[facility]. Wernicke encephalopathy. Surgical History. Bladder Surgery. suspension. Colonoscopy - MAC (01/28/17). EGD - MAC (12/20/16). History of bilateral ligation of fallopian tubes. History of Surgical Procedure. a. Bladder repair. Repair bladder injury, simple PREVIOUS FUNCTIONAL STATUS/SOCIAL/FAMILY SUPPORTS:: Leticia lives alone in her home in [place] with her dog and cats. She has a sister who takes care of her animals when she is hospitalized, and a caregiver, Marry, who visits her 3x/week for 2 hrs at a time. Her son Seth is her DPOA, although he lives in [place]. CURRENT FUNCTIONAL STATUS:: Leticia was lying in bed when CM met with her. She is well known to this journalists and other writers, and she presented much better than her baseline. She reported that she is NPO currently, and had been vomiting for days prior to coming in the the ED. She stated that she was hoping to return home soon. CM informed her that her diet would likely be advanced proir to discharge. She stated that she has a new caregiver, named Marry, who visits her 3 days a week for 2 hours. She has a palliative care consult, which will likely happen today. CM will continue to follow. ADVANCE DIRECTIVES:: COLST on file. Son, Seth, listed as agent and DPOA. Has patient been provided with info about the portal/API?: Yes Did the patient sign up for the portal?: Yes (active) CODE STATUS:: Full Code CODE STATUS COMMENT:: Leticia was DNR/DNI, but recently completed a new COLST stating that she is full code. INSURANCE COVERAGE / FINANCIAL ISSUES:: [facility] MCR replacement CURRENT HOME/COMMUNITY SERVICES/EQUIPMENT:: Leticia owns a walker, a cane, and a toilet seat riser. She has a caregiver four days a week for two hours per day, in addition to MOW. PRIMARY CARE PHYSICIAN:: Lavelle Galindo POTENTIAL DISCHARGE NEEDS:: Evaluations for further needs, follow up appointments. PATIENT/FAMILY EDUCATION NEEDS:: Review of discharge instructions regarding medications, activity level, and follow up plan of care, and discussion of Ask Me Three. ANTICIPATED BARRIERS TO DISCHARGE:: None anticipated. TRANSPORTATION:: Via [facility] private vehicle. PLAN:: Anticipate Leticia will be discharged home with new orders for HH RN, PT, [id number] services when medically cleared by provider. She will follow up with her community providers and plan of care as directed. Leticia will transport home via [facility] private vehicle coordinated by CM. CM will continue to support Leticia and any discharge planning needs.
[2022-05-13] MEDS: Prochlorperazine 10 MG/2 ML VIAL IVP (11:31)
--- NOTE | 2022-05-13 15:05 | W.PALLCONSUL ---
Date of service: 05/13/22 Time of Service: 15:05 History of Present Illness History of Present Illness Chief Complaint: Abdominal pain, unable to eat, vomiting Narrative: Per H and P History of Present Illness?Chief Complaint: Abdominal pain, nausea and vomitting.?Narrative: This is a 77 yo female that has had multiple admissions to [facility].? PMH of alcohol abuse, pancreatitis, depression, transaminitis, AMBER, Fe def anemia, HTN.? She presented currently with 4-5 days of abdominal pain but more now with N/V.? She has not been able to keep her medications down for 1-2 days.? She did, however have a clinic visit with palliative care on 05/12/22 and did not mention pain, N/V at that time. She now endorses some cough.? No fever or chills.? No diarrhea.? No CP/palpitations. In the ED her Hgb was 8.3.? Mg low at 1.4.? WBC count mildly low.? CT abd/pelvis:?Minimal pancreatitis suspected.? Gallstones and faint distal common bile duct. stone. Minimal air in the gallbladder versus air containing gallstone Grossly stable lobulated presacral mass/soft tissue lesion She was administered IV fluids, antiemetics, IV protonix and a dose of IV ativan. Admitted for further care and workup.?? Interim hx: I have known Leticia for some time. I had actually seen her yesterday and at that time she said that it was difficult for her to eat, but her exam was reassuring. She had good bowel sounds and her abdomen was soft nontender. As the evening progressed she became more symptomatic and stated that she started vomiting. She was unable to keep water down and went to the emergency room. She was afraid of being dehydrated. Since arrival she has been n.p.o. She is starting to feel better and wonders if she is going home today. She says it usually takes her 2 to 3 days to improve her ability to eat and not vomit. During our meeting yesterday I noted that she had a change in her CODE STATUS. I spoke with her primary care doctor and he did this on the basis of a COLST form done at a custodial. Leticia has no memory of being asked about this Assessment and Plan Assessment and plan (1) Gallstones: Status: Acute Assessment and plan: Ultrasound suspicious for acute cholecystitis. Abdominal exam showed minimal tenderness. (2) Severe nausea and vomiting: Status: Acute Assessment and plan: Presently n.p.o. and doing better. Doubtful that she will be discharged today considering she has not attempted to eat (3) Advance care planning: Status: Acute Assessment and plan: Leticia and I spent some time talking about her different COLST forms and advanced care planning. Her major aim is to stay home with her dog. She also does plan to live for a long time. We talked about CPR what it involves. At this point she said that she does not remember discussing this when she was at [facility]. She does not want intubation or chest compressions. But she is hopeful for a long life. We completed a new POLST form and she is DNR/DNI. She is okay with a trial of a feeding tube, IV hydration, and antibiotics. I did give a copy of her POLST form to hospitalist staff (4) Anemia: Status: Chronic Assessment and plan: Will need to watch carefully. Uncertain where the source of bleeding is except that it could be from her chronic gastritis. Again abdominal exam was fairly benign so I doubt that its from her diverticulitis. Review of Systems Narrative: Leticia says that she is starting to feel better. She does not have abdominal pain. Being n.p.o. she has not had any recent vomiting. She has no chest pain. She is tired quite a bit of the time. PFSH All Active Problems (Updated 05/13/22 @ 16:58 by Genoveva Young MD, [place]) Anemia (Chronic) Advance care planning (Acute) Gallstones (Acute) Hyperbilirubinemia (Acute) Severe nausea and vomiting (Acute) Hypomagnesemia (Acute) Alcohol withdrawal (Acute) Shortness of breath (Acute) Elevated blood pressure reading without diagnosis of hypertension (Acute) Left arm pain (Acute) Ambulatory dysfunction (Acute) Weakness (Acute) Incontinence (Acute) Urge incontinence (Acute) Anorexia (Acute) Headache (Acute) Onychomycosis (Acute) Depression (Chronic) Abdominal pain (Acute) Chest pain (Acute) Foot pain, right (Acute) Tendinitis of left rotator cuff (Acute) Macrocytosis (Acute 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 Leukopenia (Acute) Headache (Acute) Epigastric abdominal pain (Acute) Elev transaminase/LDH (Acute) due to alcohol Calcific tendinitis of left shoulder (Acute) Pulmonary mass (Acute) spiculated mass Pneumonia (Acute) Nausea & vomiting (Acute) Abdominal pain (Acute) Depression with suicidal ideation (Acute) Alcohol abuse (Acute) Diarrhea (Acute) Epigastric pain (Acute) Nausea and vomiting (Acute) Dehydration (Acute) Hypokalemia (Acute) Discharge planning issues (Acute) C. difficile colitis (Acute) Palliative care patient (Acute) Difficult intravenous access (Acute) Multiple IV attempts, usually requires ultrasound placement. Pancreatitis (Chronic) PTSD (post-traumatic stress disorder) (Acute) Anemia (Chronic) Depression (Chronic) Foot pain, right (Acute) T12 compression fracture (Acute) Presacral mass (Chronic) Deviated nasal septum (Acute) Frequent falls (Chronic) Head injury (Acute) Transaminitis (Acute) Ambulatory dysfunction (Chronic) Shoulder pain, right (Chronic) DVT prophylaxis (Acute) Suicidal ideation (Acute) Dry eye (Acute) Pruritus (Acute) Dystrophic nail (Acute) AMBER (acute kidney injury) (Acute) Iron deficiency anemia (Chronic) Alcohol abuse (Chronic) Hypomagnesemia (Chronic) Discharge planning issues (Acute) UTI (urinary tract infection) (Acute) Fall (Acute) Atelectasis of left lung (Chronic) Advance directive on file (Acute) Nodule of upper lobe of right lung (Acute ~09/13/18) 09/13/18 [facility]; 12mm SPICULATED -kb Cataract (Chronic 11/07/15) Hypertension (Chronic) high today; she will check readings at home Hyperlipidemia (Chronic) Back pain, chronic (Chronic) Depression (Chronic) Osteopenia (Chronic) Medical History Adjustment disorder with depressed mood Alcoholic ketosis Anemia Cervical radicular pain neck pain and [facility]D [facility] 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) pls refrain from alcohol Chronic alcoholism she will not stop drinking unless she checks with me, so that we can help her avert withdrawal I do not think she is capable on her own--she would need placement to achieve required goal of 3 months of sobriety Chronic diarrhea Closed right humeral fracture Corneal ulcer, right (~08/23/18) 08/23/18; [facility] Fracture of humerus, left, closed Genital herpes simplex recurrent gential; suppressive Valtrex GERD (gastroesophageal reflux disease) GI bleed (12/20/16) Hypertension Hypokalemia Hypomagnesemia Incidental lung nodule, greater than or equal to 8mm 1cm, spiculated, stable for many years, recommend f/u in 6 mo Multiple rib fractures 03/11/19 [facility] Non-cardiac chest pain (09/21/16) [facility] 09/21/16 NEGATIVE MP Osteoarthritis Palliative care patient (03/21/17) Pancreatitis, alcoholic, acute Peripheral edema Photophobia of right eye Pleural effusion on left 03/11/19 [facility] Presacral mass (~09/15/18) 09/15/18 [facility] Sciatica right, epidural injuections [facility] Tubular adenoma of colon (01/28/17) Urinary incontinence 01/24/13 urethral suspension and sling at [facility] (bladder suspension 1991) 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 Bladder repair. Repair bladder injury, simple Family History Mother No problems noted. Father , DROWNED at age 50. No problems noted. Sister Personal history of malignant neoplasm MELANOMA Sister No problems noted. Grandfather Personal history of malignant neoplasm STOMACH Grandfather Personal history of malignant neoplasm PROSTATE Grandmother Heart disease [place] Acute ill-defined cerebrovascular disease Grandmother Personal history of malignant neoplasm UTERINE Aunt , [place] Heart disease [place] Aunt , [place] Heart disease Brother No problems noted. Social History Smoking/Tobacco Use Status: Former Tobacco Use Quit Date: 08/05/20 Smoking risk assessment performed?: Yes Alcohol Intake: current Alcohol Intake frequency: 3 or more drinks per day Alcohol type: hard liquor Drug use: Never Substance use type: does not use Details: whiskey---last on Tuesday per pt Current gender identity: female Do you feel safe at home: Yes Do you feel safe in your relationship?: Yes Exam Narrative Exam Narrative: Julia is sitting in her bed. She is speaking coherently and is alert and oriented. She knows who I am and remembers our discussion yesterday about her abdominal complaints. Her heart is regular. Lungs shallow breaths but no rales or wheezes. Her abdomen has bowel sounds in 3 of the 4 quadrants. Palpation?soft nontender. Mood?stable. Please note weight is about the same today as it was yesterday. There has been a decrease but she seems to fluctuate in the 130s if I look back at her weights historically Results Last Vital Signs Temp 97.9 F 05/13/22 07:16 Pulse 99 H 05/13/22 07:16 Resp 17 05/13/22 07:16 BP 167/82 H 05/13/22 07:16 Pulse Ox 95 05/13/22 07:16 Labs Result diagrams: 05/13/22 06:30 05/13/22 06:30 Labs: Laboratory Results - last 24 hr 05/12/22 05/12/22 05/12/22 23:12 23:12 23:20 WBC 4.37 L RBC 3.50 L Hgb 8.3 L Hct 28.6 L MCV 82 MCH 23.7 L MCHC 29.0 L RDW 20.5 H Plt Count 106 L MPV 8.4 Immature Gran % 0.9 Neutrophils % 90.4 Lymphocytes % 4.3 Monocytes % 3.9 Eosinophils % 0.0 Basophils % 0.5 Nucleated RBC % 0.0 Absolute Neutrophils 3.95 Absolute Lymphocytes 0.19 L Absolute Monocytes 0.17 Absolute Eosinophils 0.00 Absolute Basophils 0.02 RBC Morphology See Below Polychromasia Hypochromasia Basophilic Stippling Anisocytosis 2+ Microcytosis 1+ Sodium 138 Potassium 4.0 Chloride 97 L Carbon Dioxide 22.3 Anion Gap 18.7 H BUN 19 H Creatinine 1.1 H Est GFR (CKD-EPI 2020) 52.08 Glucose 243 H Calcium 10.5 H Magnesium 1.4 L Total Bilirubin 3.4 H AST 72 H ALT 68 H Alkaline Phosphatase 138 H Troponin I < 50 Total Protein 8.6 H Albumin 4.4 Lipase 144 Procalcitonin Urine Color Urine Clarity Urine pH Ur Specific [place] Urine Protein Urine Ketones Urine Blood Urine Nitrite Urine Bilirubin Urine Urobilinogen Ur Leukocyte Esterase Urine RBC Urine WBC Ur Epithelial Cells Urine Crystals Urine Bacteria Urine Casts Urine Mucus Ur Culture Indicated? Urine Glucose Urine Opiates Screen Negative Urine Methadone Screen Negative Ur Barbiturates Screen Negative Ur Tricyclics Screen Negative Ur Amphetamines Screen Negative U Benzodiazepines Scrn Negative Urine Cocaine Screen Negative Ur THC Screen Negative Ethyl Alcohol < 3.0 COVID-19 Source SARS-CoV-2 (PCR) Patient ABO/Rh Antibody Screen 05/12/22 05/13/22 05/13/22 23:20 00:33 01:50 WBC RBC Hgb Hct MCV MCH MCHC RDW Plt Count MPV Immature Gran % Neutrophils % Lymphocytes % Monocytes % Eosinophils % Basophils % Nucleated RBC % Absolute Neutrophils Absolute Lymphocytes Absolute Monocytes Absolute Eosinophils Absolute Basophils RBC Morphology Polychromasia Hypochromasia Basophilic Stippling Anisocytosis Microcytosis Sodium Potassium Chloride Carbon Dioxide Anion Gap BUN Creatinine Est GFR (CKD-EPI 2020) Glucose Calcium Magnesium Total Bilirubin AST ALT Alkaline Phosphatase Troponin I < 50 Total Protein Albumin Lipase Procalcitonin Urine Color Yellow Urine Clarity Sl Cloudy Urine pH 6.5 Ur Specific [place] 1.025 Urine Protein 100 H Urine Ketones >=160 H Urine Blood Trace-lysed H Urine Nitrite Negative Urine Bilirubin Negative Urine Urobilinogen 2.0 H Ur Leukocyte Esterase Negative Urine RBC 0-2 Urine WBC 3-5 Ur Epithelial Cells Rare Urine Crystals Negative Urine Bacteria Many Urine Casts 0-2 Hyaline Urine Mucus Trace Ur Culture Indicated? Yes Urine Glucose 100 Urine Opiates Screen Urine Methadone Screen Ur Barbiturates Screen Ur Tricyclics Screen Ur Amphetamines Screen U Benzodiazepines Scrn Urine Cocaine Screen Ur THC Screen Ethyl Alcohol COVID-19 Source Nasal/Nares SARS-CoV-2 (PCR) Negative Patient ABO/Rh Antibody Screen 05/13/22 05/13/22 05/13/22 06:30 06:30 06:30 WBC 2.92 L RBC 3.25 L Hgb 7.9 L Hct 26.7 L MCV 82 MCH 24.3 L MCHC 29.6 L RDW 20.6 H Plt Count 91 L MPV 9.4 Immature Gran % 1.7 Neutrophils % 76.4 Lymphocytes % 10.6 Monocytes % 11.0 Eosinophils % 0.0 Basophils % 0.3 Nucleated RBC % 0.0 Absolute Neutrophils 2.23 Absolute Lymphocytes 0.31 L Absolute Monocytes 0.32 Absolute Eosinophils 0.00 Absolute Basophils 0.01 RBC Morphology See Below Polychromasia Present Hypochromasia 2+ Basophilic Stippling Present Anisocytosis 2+ Microcytosis Sodium 139 Potassium 3.8 Chloride 100 Carbon Dioxide 28.6 Anion Gap 10.4 BUN 15 Creatinine 0.9 Est GFR (CKD-EPI 2020) 66.26 Glucose 156 H Calcium 10.2 H Magnesium Total Bilirubin 3.3 H AST 45 H ALT 53 Alkaline Phosphatase 120 H Troponin I Total Protein 7.5 Albumin 3.7 Lipase Procalcitonin 0.2 Urine Color Urine Clarity Urine pH Ur Specific [place] Urine Protein Urine Ketones Urine Blood Urine Nitrite Urine Bilirubin Urine Urobilinogen Ur Leukocyte Esterase Urine RBC Urine WBC Ur Epithelial Cells Urine Crystals Urine Bacteria Urine Casts Urine Mucus Ur Culture Indicated? Urine Glucose Urine Opiates Screen Urine Methadone Screen Ur Barbiturates Screen Ur Tricyclics Screen Ur Amphetamines Screen U Benzodiazepines Scrn Urine Cocaine Screen Ur THC Screen Ethyl Alcohol COVID-19 Source SARS-CoV-2 (PCR) Patient ABO/Rh Antibody Screen 05/13/22 07:30 WBC RBC Hgb Hct MCV MCH MCHC RDW Plt Count MPV Immature Gran % Neutrophils % Lymphocytes % Monocytes % Eosinophils % Basophils % Nucleated RBC % Absolute Neutrophils Absolute Lymphocytes Absolute Monocytes Absolute Eosinophils Absolute Basophils RBC Morphology Polychromasia Hypochromasia Basophilic Stippling Anisocytosis Microcytosis Sodium Potassium Chloride Carbon Dioxide Anion Gap BUN Creatinine Est GFR (CKD-EPI 2020) Glucose Calcium Magnesium Total Bilirubin AST ALT Alkaline Phosphatase Troponin I Total Protein Albumin Lipase Procalcitonin Urine Color Urine Clarity Urine pH Ur Specific [place] Urine Protein Urine Ketones Urine Blood Urine Nitrite Urine Bilirubin Urine Urobilinogen Ur Leukocyte Esterase Urine RBC Urine WBC Ur Epithelial Cells Urine Crystals Urine Bacteria Urine Casts Urine Mucus Ur Culture Indicated? Urine Glucose Urine Opiates Screen Urine Methadone Screen Ur Barbiturates Screen Ur Tricyclics Screen Ur Amphetamines Screen U Benzodiazepines Scrn Urine Cocaine Screen Ur THC Screen Ethyl Alcohol COVID-19 Source SARS-CoV-2 (PCR) Patient ABO/Rh A Negative Antibody Screen NEGATIVE Imaging Abdomen CT scan report/results: report reviewed and other Additional studies: ABDOMEN: Lung Bases: There is cardiomegaly.? Coronary artery calcifications are present.? There is a small hiatal hernia.? Dependent atelectasis is seen in the lung bases.? Liver: There is diffuse decreased attenuation of the liver suggesting fatty infiltration.? There is an unchanged tiny hypodensity in the posterior segment of the right lobe of the liver.? It is too small for further characterization.? Portal, Superior Mesenteric, and Splenic Veins: Unremarkable.? Gallbladder and Biliary Tract: There stones seen within the gallbladder.? There is a small focus of gas in the dependent portion of the gallbladder.? There is no biliary ductal dilatation.? No definite biliary ductal stone is seen. Pancreas: Normal density. Question of mild infiltration in the region of the head and uncinate process of the pancreas. No peripancreatic fluid collection is seen. Spleen: Normal. Adrenals: No masses seen. Kidneys: Normal size, contour and axis. There are nonobstructing stones in the left kidney. There are hypodensities in both kidneys which are too small for further characterization but likely reflect small cysts. There is a simple cyst measuring 2.7 cm in the right kidney. Abdominal Aorta: Abdominal portion non-dilated. Atherosclerosis is present. Bowel: No obstruction or bowel wall thickening. Appendix is unremarkable. Peritoneal Cavity: No ascites, collection or mesenteric inflammatory response.? No free air.There has been no change in the presacral mass. Lymph Nodes: Within normal limits. Bones: Within normal limits for the patient's age.? There are old healed bilateral rib fractures. There is stable grade 1 anterolisthesis of L4 on L5 Soft Tissues: Bilateral fat containing inguinal hernia are present. PELVIS: Bladder: Symmetric distention, no gross wall thickening. Reproductive Organs: Unremarkable as visualized. Lymph Nodes: Within normal limits. Bones: Within normal limits for the patient's age.? IMPRESSION: 1. Cholelithiasis. No biliary ductal dilatation. 2. Question of mild infiltration in the fat surrounding the head and uncinate process of the pancreas. Mild acute pancreatitis should be considered. Please correlate clinically. 3. Small focus of air in the gallbladder versus an air containing gallstone. 4. Stable presacral mass. Imaging Studies: FINDINGS: PANCREAS: Normal where visualized. LIVER: Normal. Hepatopedal flow in the Portal Vein. The liver measures in 14.5 cm length. GALLBLADDER:Multiple gallstones are present.? There are some nonmobile gallstones present.? There is sludge seen within the gallbladder.? The gallbladder wall measures 4.7 mm.? There is a small amount of pericholecystic fluid.? BILIARY SYSTEM: Common bile duct measures < 7 mm. No intrahepatic biliary ductal dilation. GURROLA'S SIGN: Positive RIGHT KIDNEY: Kidney is normal in size.? No evidence of renal calculi. No evidence of hydronephrosis. There is a 3.1 cm simple cyst in the lower pole of the right kidney.? This is unchanged compared to prior examinations.? No follow-up is recommended.? ASCITES: None seen. ABDOMINAL AORTA AND IVC: Visualized portions normal caliber. IMPRESSION: Findings suspicious for acute cholecystitis.?
--- NOTE | 2022-05-13 17:45 | W.PM.PROGNOT ---
Date of Service Date of service: 05/13/22 Time of Service: 17:46 Assessment and Plan Assessment and plan (1) Epigastric abdominal pain: Status: Acute Assessment and plan: ddx: acute cholecystitis, PUD/gastritis, pancreatitis. Given that her lipase was normal, I doube acute pancreatitis, some CT findings suggesting per-pancreatic fat inflammation. I am more concerned about her GB ultrasound w/ GB wall thickening and pericholecystic fluid along w/ her gallstones. She has had known gallstones and sludge in the past. Clinically her pain is more epigastric and LUQ and even over to her left mid to lower abdomen but really no Zavala sign for me although the vascular technologist sonographer did elicit Zavala sign. Her transaminases are improving, probably was d/t her alcohol use For now I have kept her NPO until Dr. Noble can evaluate her. continue iv fluids. (2) Gallstones: Status: Acute Assessment and plan: as above (3) Anemia: Status: Chronic Assessment and plan: patient has had anemia in the past although her last Hb from 11/01/21 was low normal at 11.3 gm. she was heme positive on her stools. I will keep her on protonix but increase to every 12hr. she is also on carafate. Will monitor her hemoglobin overnight and type and screen, transfuse for Hb less than 7 gm. (4) Hyperbilirubinemia: Status: Acute Assessment and plan: Chronically high, but higher than previous lab in [facility] system. No biliary ductal dilation noted on CT. + gallstones. Related to Etoh abuse. (5) Alcohol abuse: Status: Acute Assessment and plan: Etoh level negative at time of this admission. Abd symptoms started appx 5 days ago. Historically she has had no significant withdrawal issues. Ativen prn and then CIWA scoring if necessary. Folate and thiamine supplementation. (6) Transaminitis: Status: Acute Assessment and plan: Likely alcoholic hepatitis as it is improving Monitor. (7) Depression: Status: Chronic Assessment and plan: Cont venlafaxine, buspar, mirtazapine (8) Hypomagnesemia: Status: Acute Assessment and plan: Replete and monitor (9) Palliative care patient: Assessment and plan: Dr. Young consulted on the patient today and has gone over Leticia's code status with her and corrected her DNR/DNI status. Subjective Subjective Interval history since last seen: 77 yr old female w/ known hx of alcoholic gastritis, alcoholic pancreatitis, depression, anxiety and hypertension. She was admitted last night after presenting w/ nausea, vomiting and increasing abdominal pain that has developed over the past 4 to 5 days. No hematemesis. She had seen her palliative care provider on 05/12 and did not mention any of these symptoms. She did mention she has had a cough and some increasing dyspnea but no chest pains. Her abdominal pains are more left sided in the mid abdomen to LUQ. Evaluation last night included routine labs and CT scan of her abdomen/pelvis. CT demonstrated Cholelithiasis no biliary ductal dilatation and questionable mild infiltration of the fat surrounding the head and uncinate process of the pancreas and small focus of air in the gallbladder versus an air-containing gallstone. Stable presacral mass. Patient subsequently underwent ultrasound of her abdomen this morning which showed findings suspicious for acute cholecystitis with gallbladder wall thickening of 4.7 mm small pericholecystic fluid some nonmobile gallstones and positive Zavala sign. Laboratory studies done yesterday and today include a lipase that was normal last night and normal troponin last night. CMP showed a chronically elevated total bilirubin 3.3 with a mild transaminitis which is improving. BUN/creatinine were elevated at 19 and 1.1 last night and has since improved. CBC demonstrated anemia hemoglobin 8.3 which was repeated this morning found to be 7.9 and 7.6 this afternoon. She has a leukopenia with a white count of 4000. She has thrombocytopenia with a platelet count of 91,000. Patient states she is hungry is no longer nauseated but still has some persistent abdominal pain primarily on the left side. She has been afebrile. Because the abnormal ultrasound and persistent abdominal discomfort I have asked for surgical consult and discussed case with Dr. Noble who said he would see her this evening. Exam Narrative Exam Narrative: Julia is alert oriented person place time circumstance in no acute distress. Lungs with no rhonchi she has some faint bibasilar rales Heart regular rate and rhythm Abdomen is soft nondistended normal bowel sounds she has some mild epigastric and left upper quadrant tenderness I cannot elicit any Zavala sign when I palpated the right upper quadrant. She is also tender in the left mid to left lower quadrant to palpation. She has no rebound tenderness or and no guarding Objective Last Vital Signs Temp 36.8 C 05/13/22 15:34 Pulse 85 05/13/22 15:34 Resp 22 05/13/22 15:34 BP 160/85 H 05/13/22 15:34 Pulse Ox 95 05/13/22 15:34 Laboratory Results - last 24 hr 05/12/22 05/12/22 05/12/22 23:12 23:12 23:20 WBC 4.37 L RBC 3.50 L Hgb 8.3 L Hct 28.6 L MCV 82 MCH 23.7 L MCHC 29.0 L RDW 20.5 H Plt Count 106 L MPV 8.4 Immature Gran % 0.9 Neutrophils % 90.4 Lymphocytes % 4.3 Monocytes % 3.9 Eosinophils % 0.0 Basophils % 0.5 Nucleated RBC % 0.0 Absolute Neutrophils 3.95 Absolute Lymphocytes 0.19 L Absolute Monocytes 0.17 Absolute Eosinophils 0.00 Absolute Basophils 0.02 RBC Morphology See Below Polychromasia Hypochromasia Basophilic Stippling Anisocytosis 2+ Microcytosis 1+ Sodium 138 Potassium 4.0 Chloride 97 L Carbon Dioxide 22.3 Anion Gap 18.7 H BUN 19 H Creatinine 1.1 H Est GFR (CKD-EPI 2020) 52.08 Glucose 243 H Calcium 10.5 H Magnesium 1.4 L Total Bilirubin 3.4 H AST 72 H ALT 68 H Alkaline Phosphatase 138 H Troponin I < 50 Total Protein 8.6 H Albumin 4.4 Lipase 144 Procalcitonin Urine Color Urine Clarity Urine pH Ur Specific [place] Urine Protein Urine Ketones Urine Blood Urine Nitrite Urine Bilirubin Urine Urobilinogen Ur Leukocyte Esterase Urine RBC Urine WBC Ur Epithelial Cells Urine Crystals Urine Bacteria Urine Casts Urine Mucus Ur Culture Indicated? Urine Glucose Urine Opiates Screen Negative Urine Methadone Screen Negative Ur Barbiturates Screen Negative Ur Tricyclics Screen Negative Ur Amphetamines Screen Negative U Benzodiazepines Scrn Negative Urine Cocaine Screen Negative Ur THC Screen Negative Ethyl Alcohol < 3.0 COVID-19 Source SARS-CoV-2 (PCR) Patient ABO/Rh Antibody Screen 05/12/22 05/13/22 05/13/22 23:20 00:33 01:50 WBC RBC Hgb Hct MCV MCH MCHC RDW Plt Count MPV Immature Gran % Neutrophils % Lymphocytes % Monocytes % Eosinophils % Basophils % Nucleated RBC % Absolute Neutrophils Absolute Lymphocytes Absolute Monocytes Absolute Eosinophils Absolute Basophils RBC Morphology Polychromasia Hypochromasia Basophilic Stippling Anisocytosis Microcytosis Sodium Potassium Chloride Carbon Dioxide Anion Gap BUN Creatinine Est GFR (CKD-EPI 2020) Glucose Calcium Magnesium Total Bilirubin AST ALT Alkaline Phosphatase Troponin I < 50 Total Protein Albumin Lipase Procalcitonin Urine Color Yellow Urine Clarity Sl Cloudy Urine pH 6.5 Ur Specific [place] 1.025 Urine Protein 100 H Urine Ketones >=160 H Urine Blood Trace-lysed H Urine Nitrite Negative Urine Bilirubin Negative Urine Urobilinogen 2.0 H Ur Leukocyte Esterase Negative Urine RBC 0-2 Urine WBC 3-5 Ur Epithelial Cells Rare Urine Crystals Negative Urine Bacteria Many Urine Casts 0-2 Hyaline Urine Mucus Trace Ur Culture Indicated? Yes Urine Glucose 100 Urine Opiates Screen Urine Methadone Screen Ur Barbiturates Screen Ur Tricyclics Screen Ur Amphetamines Screen U Benzodiazepines Scrn Urine Cocaine Screen Ur THC Screen Ethyl Alcohol COVID-19 Source Nasal/Nares SARS-CoV-2 (PCR) Negative Patient ABO/Rh Antibody Screen 05/13/22 05/13/22 05/13/22 06:30 06:30 06:30 WBC 2.92 L RBC 3.25 L Hgb 7.9 L Hct 26.7 L MCV 82 MCH 24.3 L MCHC 29.6 L RDW 20.6 H Plt Count 91 L MPV 9.4 Immature Gran % 1.7 Neutrophils % 76.4 Lymphocytes % 10.6 Monocytes % 11.0 Eosinophils % 0.0 Basophils % 0.3 Nucleated RBC % 0.0 Absolute Neutrophils 2.23 Absolute Lymphocytes 0.31 L Absolute Monocytes 0.32 Absolute Eosinophils 0.00 Absolute Basophils 0.01 RBC Morphology See Below Polychromasia Present Hypochromasia 2+ Basophilic Stippling Present Anisocytosis 2+ Microcytosis Sodium 139 Potassium 3.8 Chloride 100 Carbon Dioxide 28.6 Anion Gap 10.4 BUN 15 Creatinine 0.9 Est GFR (CKD-EPI 2020) 66.26 Glucose 156 H Calcium 10.2 H Magnesium Total Bilirubin 3.3 H AST 45 H ALT 53 Alkaline Phosphatase 120 H Troponin I Total Protein 7.5 Albumin 3.7 Lipase Procalcitonin 0.2 Urine Color Urine Clarity Urine pH Ur Specific [place] Urine Protein Urine Ketones Urine Blood Urine Nitrite Urine Bilirubin Urine Urobilinogen Ur Leukocyte Esterase Urine RBC Urine WBC Ur Epithelial Cells Urine Crystals Urine Bacteria Urine Casts Urine Mucus Ur Culture Indicated? Urine Glucose Urine Opiates Screen Urine Methadone Screen Ur Barbiturates Screen Ur Tricyclics Screen Ur Amphetamines Screen U Benzodiazepines Scrn Urine Cocaine Screen Ur THC Screen Ethyl Alcohol COVID-19 Source SARS-CoV-2 (PCR) Patient ABO/Rh Antibody Screen 05/13/22 07:30 WBC RBC Hgb Hct MCV MCH MCHC RDW Plt Count MPV Immature Gran % Neutrophils % Lymphocytes % Monocytes % Eosinophils % Basophils % Nucleated RBC % Absolute Neutrophils Absolute Lymphocytes Absolute Monocytes Absolute Eosinophils Absolute Basophils RBC Morphology Polychromasia Hypochromasia Basophilic Stippling Anisocytosis Microcytosis Sodium Potassium Chloride Carbon Dioxide Anion Gap BUN Creatinine Est GFR (CKD-EPI 2020) Glucose Calcium Magnesium Total Bilirubin AST ALT Alkaline Phosphatase Troponin I Total Protein Albumin Lipase Procalcitonin Urine Color Urine Clarity Urine pH Ur Specific [place] Urine Protein Urine Ketones Urine Blood Urine Nitrite Urine Bilirubin Urine Urobilinogen Ur Leukocyte Esterase Urine RBC Urine WBC Ur Epithelial Cells Urine Crystals Urine Bacteria Urine Casts Urine Mucus Ur Culture Indicated? Urine Glucose Urine Opiates Screen Urine Methadone Screen Ur Barbiturates Screen Ur Tricyclics Screen Ur Amphetamines Screen U Benzodiazepines Scrn Urine Cocaine Screen Ur THC Screen Ethyl Alcohol COVID-19 Source SARS-CoV-2 (PCR) Patient ABO/Rh A Negative Antibody Screen NEGATIVE PAWSS Have you Been Recently Intoxicated or Drunk Within the Last 30 days?: Yes Have you Ever Experienced Previous Episodes of Alcohol Withdrawal?: No Have you ever Experienced Withdrawal Seizures?: No Have you ever Experienced Delirium Tremens(DT)s?: No Have you ever undergone Alcohol Rehabilitation Treatment (i.e, inpt ot outpatient treatment programs)?: No Have you ever Experienced Blackouts?: No Have you ever Combined Alcohol with other Downers within the last 90 days?: No Have you ever Combined Alcohol with any other Substance of Abuse during the last 90 days?: No Evidence of Increased Autonomic Activity (i.e. HR>120, tremor, sweating, agitation, nausea)?: No Result: 1
[2022-05-13] MEDS: Lactated Ringers 1,000 ML 75 ML IV (18:15)
[2022-05-13 18:27] LABS: Abs Immature Grans 0.02 10^3/uL (0.0-0.06); Absolute Basophil Count 0.02 10^3/uL (0.0-0.2); Absolute Eosinophil Count 0.01 10^3/uL (0.0-0.7); Absolute Lymphocyte Count 0.59 10^3/uL (1.2-3.4); Absolute Monocyte Count 0.34 10^3/uL (0.1-0.8); Absolute Neutrophil Count 3.14 10^3/uL (1.2-6.7); Basophils % 0.5; ESR 8 mm/hr (0-30); Eosinophils % 0.2; HCT 25.8 % (36.0-46.0); HGB 7.6 g/dL (11.2-15.7); Immature Grans % 0.5; Lymphocytes % 14.3; MCH 24.1 pg (27.0-33.0); MCHC 29.5 % (32.0-36.0); MCV 82 fL (80-95); MPV 8.7 fL (8.0-11.0); Monocytes % 8.3; Neutrophils % 76.2; Platelet Count 100 10^3/uL (130-400); RBC 3.15 10^6/uL (3.93-5.22); RDW 21.2 % (11.7-14.6); WBC 4.12 10^3/uL (4.4-10.8)
[2022-05-13 18:36] LABS: Anisocytosis 2+; Basophilic Stippling Present
[2022-05-13 18:42] LABS: INR 1.1 (0.9-1.1); PTT Activated 25.6 sec (21.0-27.5); Prothrombin Time 11.1 sec (9.3-11.0)
[2022-05-13 19:04] LABS: C-Reactive Protein 0.37 mg/dL (0.0-0.3)
[2022-05-13 19:09] LABS: ALT 48 U/L (14-59); AST 49 U/L (15-37); Albumin 3.6 g/dL (3.4-5.0); Alkaline Phosphatase 109 U/L (46-116); Anion Gap 10.5 mmol/L (3-11); BUN 15 mg/dL (7-18); Bilirubin, Direct 0.9 mg/dL (0.0-0.2); Bilirubin, Total 3.3 mg/dL (0.2-1.0); CO2 27.5 mmol/L (21.0-32.0); CREATININE 1.1 mg/dL (0.55-1.02); Calcium 9.9 mg/dL (8.5-10.1); Chloride 101 mmol/L (98-107); Estimated GFR 52.08 (mL/min/1.73m2); Glucose 143 mg/dL (74-106); Potassium 3.2 mmol/L (3.5-5.1); Sodium 139 mmol/L (136-145)
--- NOTE | 2022-05-13 20:17 | SCONE_ITS ---
Date of service: 05/13/22 Time of Service: 20:19 Assessment and Plan Assessment and plan (1) Epigastric abdominal pain: Status: Acute Assessment and plan: I do not know if Julia has cholecystitis or not. The CAT scan certainly shows a focus of air within the lumen of the gallbladder that would the diagnosis of some form to. However, her symptoms have been going on for some time, and the nature and location of them really do not coincide with a traditional diagnosis of acute cholecystitis. The symptoms really do fit more with gastritis or peptic ulcer disease, or pancreatitis. Furthermore, her unconjugated hyperbilirubinemia complicate this even further. Her other labs and vital signs are certainly reassuring. I suspect she has some level of liver injury from the intensity of her drinking through the years. I suppose that could explain abnormal bilirubin. I think the most important part at this point is how she feels subjectively, which certainly seems to be better than the past several days. She is quite eager to eat tonight. And I think that may be a useful test of her upper GI in biliopancreatic pathology. If she is unable to tolerate the diet, or if she continues to have abnormal bilirubins, then I suppose an MRCP or HIDA scan may be another useful diagnostic adjunct. Especially since that original CAT scan raise the possibility of choledocholithiasis. I just want to be very careful with consideration of cholecystectomy, since in the big picture, I do not think she is a very good operative candidate. History of Present Illness History of Present Illness Chief Complaint: vomiting Narrative: I was pleased to meet Leticia maurice, after consultation from Dr. Blake regarding abnormality seen on her CAT scan and ultrasound. Leticia is a 77-year-old woman with a past medical history that is most relevant for severe alcoholism. She came to the emergency department after the onset of abdominal pain that was mostly in the mid epigastrium and radiated slightly to the left upper quadrant and into her back. She thinks it started about 5 days ago now. this is similar to episodes of pain that she has had throughout the past several years. Similar to previous events, this pain became associated with nausea, and then severe vomiting. She was not able to tolerate any food or drink by mouth, and that was the main reason that she went to the emergency department. While in the ED, she underwent a CAT scan of the abdomen and pelvis that demonstrated some mild inflammation around the head of the pancreas. Interestingly, her se rum lipase was within normal limits. She was admitted with a presumptive diagnosis of acute pancreatitis. While in the emergency department, she had a white blood cell count around 4. Interestingly, she also had an acute anemia with a hemoglobin around 7.6 with an associated unconjugated hyperbilirubinemia. She was admitted to the hospital, and intravenous fluids were started for gentle resuscitation. She underwent an ultrasound of the right upper quadrant today that demonstrated gallbladder sludge as well as cholelithiasis. There is a small amount of pericholecystic fluid, but not much gallbladder wall thickening for a woman her age. When I met her tonight, she says that she is feeling better. She certainly has an increase in her appetite. She says she still does have discomfort mostly in the left upper quadrant, but it is certainly better than when she came to the emergency department, and in her opinion, basically back to the baseline. She denies any nausea at this time. She tells me she is having waxing and waning diarrhea and constipation. Review of systems is most significant for depression as well as inanition. Review of Systems Constitutional Constitutional: Denies fever(s), Reports lethargy and Denies weight loss Eyes Eyes: Denies blurry vision and Denies change in vision ENT Ears, Nose, Mouth, and Throat: Reports abnormal hearing, Denies vertigo and Reports disequilibrium Cardiovascular Cardiovascular: Reports system reviewed and no additional complaints, except as documented and Denies dyspnea Respiratory Respiratory: Denies chest congestion, Reports cough and Denies dyspnea Gastrointestinal Gastrointestinal: Reports abdominal pain, Denies melena, Denies hematochezia, Reports change in bowel habits, Reports change in stool character, Reports constipation, Reports diarrhea, Denies nausea and Denies vomiting Genitourinary Genitourinary: Reports system reviewed and no additional complaints, except as documented Musculoskeletal Musculoskeletal: Reports back pain, Reports myalgias, Reports arthralgias and Reports stiffness Neurologic Neurologic: Reports abnormal hearing, Denies confusion, Denies vertigo and Reports disequilibrium Psychiatric Psychiatric: Denies confusion, Reports depression, Reports difficulty con centrating and Denies suicidal ideation Hematologic/Lymphatic Hematologic/Lymphatic: Denies easy bleeding and Denies easy bruising PFSH All Active Problems (Updated 05/13/22 @ 20:24 by Gwyn Blake MD) Epigastric abdominal pain (Acute) Anemia (Chronic) Advance care planning (Acute) Gallstones (Acute) Hyperbilirubinemia (Acute) Severe nausea and vomiting (Acute) Hypomagnesemia (Acute) Alcohol withdrawal (Acute) Shortness of breath (Acute) Elevated blood pressure reading without diagnosis of hypertension (Acute) Left arm pain (Acute) Ambulatory dysfunction (Acute) Weakness (Acute) Incontinence (Acute) Urge incontinence (Acute) Anorexia (Acute) Headache (Acute) Onychomycosis (Acute) Depression (Chronic) Chest pain (Acute) Foot pain, right (Acute) Tendinitis of left rotator cuff (Acute) Macrocytosis (Acute 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 Leukopenia (Acute) Headache (Acute) Epigastric abdominal pain (Acute) Elev transaminase/LDH (Acute) due to alcohol Calcific tendinitis of left shoulder (Acute) Pulmonary mass (Acute) spiculated mass Pneumonia (Acute) Nausea & vomiting (Acute) Depression with suicidal ideation (Acute) Alcohol abuse (Acute) Diarrhea (Acute) Epigastric pain (Acute) Nausea and vomiting (Acute) Dehydration (Acute) Hypokalemia (Acute) Discharge planning issues (Acute) C. difficile colitis (Acute) Palliative care patient (Acute) Difficult intravenous access (Acute) Multiple IV attempts, usually requires ultrasound placement. Pancreatitis (Chronic) PTSD (post-traumatic stress disorder) (Acute) Anemia (Chronic) Depression (Chronic) Foot pain, right (Acute) T12 compression fracture (Acute) Presacral mass (Chronic) Deviated nasal septum (Acute) Frequent falls (Chronic) Head injury (Acute) Transaminitis (Acute) Ambulatory dysfunction (Chronic) Shoulder pain, right (Chronic) DVT prophylaxis (Acute) Suicidal ideation (Acute) Dry eye (Acute) Pruritus (Acute) Dystrophic nail (Acute) AMBER (acute kidney injury) (Acute) Iron deficiency anemia (Chronic) Alcohol abuse (Chronic) Hypomagnesemia (Chronic) Discharge planning issues (Acute) UTI (urinary tract infection) (Acute) Fall (Acute) Atelectasis of left lung (Chronic) Advance directive on file (Acute) Nodule of upper lobe of right lung (Acute ~09/13/18) 09/13/18 [facility]; 12mm SPICULATED -kb Cataract (Chronic 11/07/15) Hypertension (Chronic) high today; she will check readings at home Hyperlipidemia (Chronic) Back pain, chronic (Chronic) Depression (Chronic) Osteopenia (Chronic) Medical History Adjustment disorder with depressed mood Alcoholic ketosis Anemia Cervical radicular pain neck pain and [facility] 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) pls refrain from alcohol Chronic alcoholism she will not stop drinking unless she checks with me, so that we can help her avert withdrawal I do not think she is capable on her own--she would need placement to achieve required goal of 3 months of sobriety Chronic diarrhea Closed right humeral fracture Corneal ulcer, right (~08/23/18) 08/23/18; [facility]- Fracture of humerus, left, closed Genital herpes simplex recurrent gential; suppressive Valtrex GERD (gastroesophageal reflux disease) GI bleed (12/20/16) Hypertension Hypokalemia Hypomagnesemia Incidental lung nodule, greater than or equal to 8mm 1cm, spiculated, stable for many years, recommend f/u in 6 mo Multiple rib fractures 03/11/19 [facility] Non-cardiac chest pain (09/21/16) [facility] [place] [place] 09/21/16 NEGATIVE MP Osteoarthritis Palliative care patient (03/21/17) Pancreatitis, alcoholic, acute Peripheral edema Photophobia of right eye Pleural effusion on left 03/11/19 [facility] Presacral mass (~09/15/18) 09/15/18 [facility] Sciatica right, epidural injuections [facility] Tubular adenoma of colon (01/28/17) Urinary incontinence 01/24/13 urethral suspension and sling at [facility] [place] [place] (bladder suspension 1991) 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 Bladder repair. Repair bladder injury, simple Family History Mother No problems noted. Father , DROWNED at age 50. No problems noted. Sister Personal history of malignant neoplasm MELANOMA Sister No problems noted. Grandfather Personal history of malignant neoplasm STOMACH Grandfather Personal history of malignant neoplasm PROSTATE Grandmother Heart disease OR Acute ill-defined cerebrovascular disease Grandmother Personal history of malignant neoplasm UTERINE Aunt , OR Heart disease OR Aunt , OR Heart disease Brother No problems noted. Social History Smoking/Tobacco Use Status: Former Tobacco Use Quit Date: 08/05/20 Smoking risk assessment performed?: Yes Alcohol Intake: current Alcohol Intake frequency: 3 or more drinks per day Alcohol type: hard liquor Drug use: Never Substance use type: does not use Details: whiskey---last on Tuesday per pt Current gender identity: female Do you feel safe at home: Yes Do you feel safe in your relationship?: Yes Exam Const General: cooperative, comfortable and no acute distress Nutritional Appearance: overweight Orientation: awake and oriented x3 Eyes General: appearance normal, both eyes and all related structures Conjunctivae: conjunctivae normal Sclera: sclerae normal Resp Effort & Inspection: normal respiratory effort and able to speak in complete sentences Cardio Jugular venous pressure: no JVD Rate: regular rate GI Inspection: normal to inspection and non-distended Palpation: soft, no guarding, no hernias and tender (Mild left upper quadrant tenderness) Auscultation: normal bowel sounds Skin General skin exam: normal turgor Neuro General: patient alert, patient awake and patient oriented x3 Cognition: normal cognition Extrem Right lower extremity: no edema Left lower extremity: no edema Results Last Vital Signs Temp 98.2 F 05/13/22 15:34 Pulse 85 05/13/22 15:34 Resp 22 05/13/22 15:34 BP 160/85 H 05/13/22 15:34 Pulse Ox 95 05/13/22 15:34 Labs Result diagrams: 05/13/22 18:19 05/13/22 18:19 Labs: Laboratory Results - last 24 hr 05/12/22 05/12/22 05/12/22 23:12 23:12 23:20 WBC 4.37 L RBC 3.50 L Hgb 8.3 L Hct 28.6 L MCV 82 MCH 23.7 L MCHC 29.0 L RDW 20.5 H Plt Count 106 L MPV 8.4 Immature Gran % 0.9 Neutrophils % 90.4 Lymphocytes % 4.3 Monocytes % 3.9 Eosinophils % 0.0 Basophils % 0.5 Nucleated RBC % 0.0 Absolute Neutrophils 3.95 Absolute Lymphocytes 0.19 L Absolute Monocytes 0.17 Absolute Eosinophils 0.00 Absolute Basophils 0.02 RBC Morphology See Below Polychromasia Hypochromasia Basophilic Stippling Anisocytosis 2+ Microcytosis 1+ ESR PT INR APTT Sodium 138 Potassium 4.0 Chloride 97 L Carbon Dioxide 22.3 Anion Gap 18.7 H BUN 19 H Creatinine 1.1 H Est GFR (CKD-EPI 2020) 52.08 Glucose 243 H Calcium 10.5 H Magnesium 1.4 L Total Bilirubin 3.4 H Conjugated Bilirubin AST 72 H ALT 68 H Alkaline Phosphatase 138 H Troponin I < 50 C-Reactive Protein Total Protein 8.6 H Albumin 4.4 Lipase 144 Procalcitonin Urine Color Urine Clarity Urine pH Ur Specific [place] Urine Protein Urine Ketones Urine Blood Urine Nitrite Urine Bilirubin Urine Urobilinogen Ur Leukocyte Esterase Urine RBC Urine WBC Ur Epithelial Cells Urine Crystals Urine Bacteria Urine Casts Urine Mucus Ur Culture Indicated? Urine Glucose Urine Opiates Screen Negative Urine Methadone Screen Negative Ur Barbiturates Screen Negative Ur Tricyclics Screen Negative Ur Amphetamines Screen Negative U Benzodiazepines Scrn Negative Urine Cocaine Screen Negative Ur THC Screen Negative Ethyl Alcohol < 3.0 COVID-19 Source SARS-CoV-2 (PCR) Patient ABO/Rh Antibody Screen 05/12/22 05/13/22 05/13/22 23:20 00:33 01:50 WBC RBC Hgb Hct MCV MCH MCHC RDW Plt Count MPV Immature Gran % Neutrophils % Lymphocytes % Monocytes % Eosinophils % Basophils % Nucleated RBC % Absolute Neutrophils Absolute Lymphocytes Absolute Monocytes Absolute Eosinophils Absolute Basophils RBC Morphology Polychromasia Hypochromasia Basophilic Stippling Anisocytosis Microcytosis ESR PT INR APTT Sodium Potassium Chloride Carbon Dioxide Anion Gap BUN Creatinine Est GFR (CKD-EPI 2020) Glucose Calcium Magnesium Total Bilirubin Conjugated Bilirubin AST ALT Alkaline Phosphatase Troponin I < 50 C-Reactive Protein Total Protein Albumin Lipase Procalcitonin Urine Color Yellow Urine Clarity Sl Cloudy Urine pH 6.5 Ur Specific [place] 1.025 Urine Protein 100 H Urine Ketones >=160 H Urine Blood Trace-lysed H Urine Nitrite Negative Urine Bilirubin Negative Urine Urobilinogen 2.0 H Ur Leukocyte Esterase Negative Urine RBC 0-2 Urine WBC 3-5 Ur Epithelial Cells Rare Urine Crystals Negative Urine Bacteria Many Urine Casts 0-2 Hyaline Urine Mucus Trace Ur Culture Indicated? Yes Urine Glucose 100 Urine Opiates Screen Urine Methadone Screen Ur Barbiturates Screen Ur Tricyclics Screen Ur Amphetamines Screen U Benzodiazepines Scrn Urine Cocaine Screen Ur THC Screen Ethyl Alcohol COVID-19 Source Nasal/Nares SARS-CoV-2 (PCR) Negative Patient ABO/Rh Antibody Screen 05/13/22 05/13/22 05/13/22 06:30 06:30 06:30 WBC 2.92 L RBC 3.25 L Hgb 7.9 L Hct 26.7 L MCV 82 MCH 24.3 L MCHC 29.6 L RDW 20.6 H Plt Count 91 L MPV 9.4 Immature Gran % 1.7 Neutrophils % 76.4 Lymphocytes % 10.6 Monocytes % 11.0 Eosinophils % 0.0 Basophils % 0.3 Nucleated RBC % 0.0 Absolute Neutrophils 2.23 Absolute Lymphocytes 0.31 L Absolute Monocytes 0.32 Absolute Eosinophils 0.00 Absolute Basophils 0.01 RBC Morphology See Below Polychromasia Present Hypochromasia 2+ Basophilic Stippling Present Anisocytosis 2+ Microcytosis ESR PT INR APTT Sodium 139 Potassium 3.8 Chloride 100 Carbon Dioxide 28.6 Anion Gap 10.4 BUN 15 Creatinine 0.9 Est GFR (CKD-EPI 2020) 66.26 Glucose 156 H Calcium 10.2 H Magnesium Total Bilirubin 3.3 H Conjugated Bilirubin AST 45 H ALT 53 Alkaline Phosphatase 120 H Troponin I C-Reactive Protein Total Protein 7.5 Albumin 3.7 Lipase Procalcitonin 0.2 Urine Color Urine Clarity Urine pH Ur Specific [place] Urine Protein Urine Ketones Urine Blood Urine Nitrite Urine Bilirubin Urine Urobilinogen Ur Leukocyte Esterase Urine RBC Urine WBC Ur Epithelial Cells Urine Crystals Urine Bacteria Urine Casts Urine Mucus Ur Culture Indicated? Urine Glucose Urine Opiates Screen Urine Methadone Screen Ur Barbiturates Screen Ur Tricyclics Screen Ur Amphetamines Screen U Benzodiazepines Scrn Urine Cocaine Screen Ur THC Screen Ethyl Alcohol COVID-19 Source SARS-CoV-2 (PCR) Patient ABO/Rh Antibody Screen 05/13/22 05/13/22 05/13/22 07:30 18:19 18:19 WBC RBC Hgb Hct MCV MCH MCHC RDW Plt Count MPV Immature Gran % Neutrophils % Lymphocytes % Monocytes % Eosinophils % Basophils % Nucleated RBC % Absolute Neutrophils Absolute Lymphocytes Absolute Monocytes Absolute Eosinophils Absolute Basophils RBC Morphology Polychromasia Hypochromasia Basophilic Stippling Anisocytosis Microcytosis ESR 8 PT INR APTT Sodium Potassium Chloride Carbon Dioxide Anion Gap BUN Creatinine Est GFR (CKD-EPI 2020) Glucose Calcium Magnesium Total Bilirubin Conjugated Bilirubin AST ALT Alkaline Phosphatase Troponin I C-Reactive Protein 0.37 H Total Protein Albumin Lipase Procalcitonin Urine Color Urine Clarity Urine pH Ur Specific [place] Urine Protein Urine Ketones Urine Blood Urine Nitrite Urine Bilirubin Urine Urobilinogen Ur Leukocyte Esterase Urine RBC Urine WBC Ur Epithelial Cells Urine Crystals Urine Bacteria Urine Casts Urine Mucus Ur Culture Indicated? Urine Glucose Urine Opiates Screen Urine Methadone Screen Ur Barbiturates Screen Ur Tricyclics Screen Ur Amphetamines Screen U Benzodiazepines Scrn Urine Cocaine Screen Ur THC Screen Ethyl Alcohol COVID-19 Source SARS-CoV-2 (PCR) Patient ABO/Rh A Negative Antibody Screen NEGATIVE 05/13/22 05/13/22 05/13/22 18:19 18:19 18:19 WBC 4.12 L RBC 3.15 L Hgb 7.6 L Hct 25.8 L MCV 82 MCH 24.1 L MCHC 29.5 L RDW 21.2 H Plt Count 100 L MPV 8.7 Immature Gran % 0.5 Neutrophils % 76.2 Lymphocytes % 14.3 Monocytes % 8.3 Eosinophils % 0.2 Basophils % 0.5 Nucleated RBC % 0.0 Absolute Neutrophils 3.14 Absolute Lymphocytes 0.59 L Absolute Monocytes 0.34 Absolute Eosinophils 0.01 Absolute Basophils 0.02 RBC Morphology Polychromasia Hypochromasia Basophilic Stippling Present Anisocytosis 2+ Microcytosis ESR PT 11.1 H INR 1.1 APTT 25.6 Sodium 139 Potassium 3.2 L Chloride 101 Carbon Dioxide 27.5 Anion Gap 10.5 BUN 15 Creatinine 1.1 H Est GFR (CKD-EPI 2020) 52.08 Glucose 143 H Calcium 9.9 Magnesium Total Bilirubin 3.3 H Conjugated Bilirubin 0.9 H AST 49 H ALT 48 Alkaline Phosphatase 109 Troponin I C-Reactive Protein Total Protein 7.0 Albumin 3.6 Lipase Procalcitonin Urine Color Urine Clarity Urine pH Ur Specific [place] Urine Protein Urine Ketones Urine Blood Urine Nitrite Urine Bilirubin Urine Urobilinogen Ur Leukocyte Esterase Urine RBC Urine WBC Ur Epithelial Cells Urine Crystals Urine Bacteria Urine Casts Urine Mucus Ur Culture Indicated? Urine Glucose Urine Opiates Screen Urine Methadone Screen Ur Barbiturates Screen Ur Tricyclics Screen Ur Amphetamines Screen U Benzodiazepines Scrn Urine Cocaine Screen Ur THC Screen Ethyl Alcohol COVID-19 Source SARS-CoV-2 (PCR) Patient ABO/Rh Antibody Screen
[2022-05-13] MEDS: miSOPROStol 100 MCG TAB PO (20:34)
[2022-05-13] MEDS: LORazepam 20 MG/10 ML VIAL IVP (20:36)
[2022-05-13] MEDS: Mirtazapine 15 MG TAB 7.5 MG PO (22:00)
[2022-05-13] MEDS: Melatonin 3 MG TAB 6 MG PO (22:02)
[2022-05-13 22:50] LABS: HCT 25.4 % (36.0-46.0); HGB 7.4 g/dL (11.2-15.7)
[2022-05-14] VITALS (16 sets, daily range): BP systolic 125–170; BP diastolic 60–92; PULSE 83–103; RESP 12–24; TEMP 35.9–37.5; O2SAT 92–96
[2022-05-14] MEDS: Refresh PLUS Eye Drops 0.4ml OU ×6 (00:21→23:50)
[2022-05-14] MEDS: Budesonide 0.5 MG/2 ML UPD VIAL IH (07:50)
[2022-05-14] MEDS: Folic Acid 1 MG TAB PO (08:07)
[2022-05-14] MEDS: miSOPROStol 100 MCG TAB PO (08:08)
[2022-05-14] MEDS: valACYclovir 500 MG TAB PO ×2 (08:08→19:56)
[2022-05-14] MEDS: busPIRone 5 MG TAB PO ×2 (08:08→19:56)
[2022-05-14 08:09] LABS: Abs Immature Grans 0.01 10^3/uL (0.0-0.06); Absolute Basophil Count 0.01 10^3/uL (0.0-0.2); Absolute Eosinophil Count 0.01 10^3/uL (0.0-0.7); Absolute Lymphocyte Count 0.84 10^3/uL (1.2-3.4); Absolute Monocyte Count 0.35 10^3/uL (0.1-0.8); Absolute Neutrophil Count 2.06 10^3/uL (1.2-6.7); Basophils % 0.3; Eosinophils % 0.3; HCT 23.9 % (36.0-46.0); HGB 7.1 g/dL (11.2-15.7); Immature Grans % 0.3; Lymphocytes % 25.6; MCH 24.2 pg (27.0-33.0); MCHC 29.7 % (32.0-36.0); MCV 82 fL (80-95); MPV 9.3 fL (8.0-11.0); Monocytes % 10.7; Neutrophils % 62.8; RBC 2.93 10^6/uL (3.93-5.22); RDW 20.8 % (11.7-14.6); WBC 3.28 10^3/uL (4.4-10.8)
[2022-05-14] MEDS: Metoprolol 50 MG TAB PO (08:09)
[2022-05-14] MEDS: amLODIPine 10 MG TAB PO (08:09)
[2022-05-14] MEDS: Thiamine 100 MG TAB PO (08:09)
[2022-05-14] MEDS: Venlafaxine 75 MG CAPCR PO (08:09)
[2022-05-14] MEDS: Sucralfate 1 GM TAB PO ×4 (08:09→21:09)
[2022-05-14] MEDS: Normal Saline Flush 10 ML SYR IVP ×4 (08:10→19:55)
[2022-05-14] MEDS: QUEtiapine 25 MG TAB 12.5 MG PO ×2 (08:10→19:56)
[2022-05-14] MEDS: Pantoprazole 40 MG VIAL IVP ×2 (08:11→19:55)
[2022-05-14 08:39] LABS: ALT 43 U/L (14-59); AST 42 U/L (15-37); Albumin 3.4 g/dL (3.4-5.0); Alkaline Phosphatase 100 U/L (46-116); Anion Gap 8.3 mmol/L (3-11); BUN 11 mg/dL (7-18); Bilirubin, Total 2.3 mg/dL (0.2-1.0); CO2 28.7 mmol/L (21.0-32.0); CREATININE 0.8 mg/dL (0.55-1.02); Calcium 9.5 mg/dL (8.5-10.1); Chloride 99 mmol/L (98-107); Estimated GFR 76.31 (mL/min/1.73m2); Glucose 132 mg/dL (74-106); LDH 136 U/L (81-234); Magnesium 1.7 mg/dL (1.8-2.4); Potassium 3.2 mmol/L (3.5-5.1); Sodium 136 mmol/L (136-145); Total Protein 6.5 g/dL (6.4-8.2)
[2022-05-14 08:44] LABS: Platelet Count 75 10^3/uL (130-400)
[2022-05-14 08:45] LABS: Acanthocytes 1+; Diff Comment RBC Morph Reviewed
[2022-05-14] MEDS: Ursodiol 300 MG CAP PO ×2 (09:00→19:56)
[2022-05-14] MEDS: MAGNESIUM SULFATE 2 GM/50 ML BAG IVPB (11:49)
--- NOTE | 2022-05-14 12:35 | PGE_ITS ---
Date of Service Date of service: 05/14/22 Time of Service: 12:35 Assessment and Plan Assessment and plan (1) Epigastric abdominal pain: Status: Acute Assessment and plan: Given her worsening anemia Hemoccult positive stool and epigastric abdominal pain and postprandial nausea and pain her findings were consistent with peptic ulcer disease. Patient is currently on Protonix 40 mg IV twice a day along with Carafate 1 g before meals and at bedtime as well as misoprostol 100 mcg twice a day. I stopped her misoprostol in case this is contributing to her epigastric distress. I will transfuse her 2 units of packed red cells as her hemoglobin is down to 7.1 g. I will asked Dr. Noble to reevaluate her and consider an EGD. (2) Gallstones: Status: Acute Assessment and plan: Multiple gallstones along with some gallbladder wall thickening and either air in the gallbladder or area in one of her gallstones. These findings were concerning for cholecystitis but I think her other physical findings and worsening anemia point more towards peptic ulcer disease. 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 Her worsening anemia may be due to bleeding ulcers. We will make her n.p.o. continue IV Protonix and request surgery to reevaluate. (4) Hyperbilirubinemia: Status: Acute Assessment and plan: Stable chronic hyperbilirubinemia prior from her chronic liver disease. (5) Alcohol abuse: Status: Chronic Assessment and plan: History of chronic alcohol abuse. However historically she has not ever gone into acute alcohol withdrawal. (6) Transaminitis: Status: Acute Assessment and plan: Improving with hydration and abstinence from alcohol (7) Depression: Status: Chronic Assessment and plan: Cont venlafaxine, buspar, mirtazapine (8) Hypomagnesemia: Status: Acute Assessment and plan: Replete and monitor (9) Palliative care patient: Assessment and plan: Dr. Young consulted on the patient yesterday and has gone over Leticia's code status with her and corrected her DNR/DNI status. Subjective Subjective Interval history since last seen: Complaints of postprandial nausea and epigastric abdominal pain. Patient is becoming more anemic with a hemoglobin of 7.1 g this morning. She is agreeable to transfusions. I have asked Dr. Noble to reevaluate her and consider an EGD as she very well may have it peptic ulcer. He does not feel that she has acute cholecystitis as her examination is not consistent with acute cholecystitis. Also she has had no fevers and no leukocytosis with this. Fact that she has Hemoccult positive stools worsening anemia and postprandial pain and nausea is more consistent with peptic ulcer disease. However I did start her on misoprostol yesterday and some of her nausea and epigastric discomfort may have been exacerbated by this. Exam Narrative Exam Narrative: Elderly female sitting up at the bedside attempting to eat lunch but only picked at some bites of her lunch. She feels nauseated and is complaining of epigastric discomfort. Abdomen is slightly distended with active bowel sounds without rebound tenderness or guarding but with reproducible epigastric pain with deep palpation. No Zavala sign with palpation in her right upper quadrant. Objective Last Vital Signs Temp 37.5 C 05/14/22 07:45 Pulse 103 H 05/14/22 07:45 Resp 20 05/14/22 07:45 BP 164/77 H 05/14/22 07:45 Pulse Ox 93 05/14/22 07:45 Laboratory Results - last 24 hr 05/13/22 05/13/22 05/13/22 18:19 18:19 18:19 WBC RBC Hgb Hct MCV MCH MCHC RDW Plt Count MPV Immature Gran % Neutrophils % Lymphocytes % Monocytes % Eosinophils % Basophils % Nucleated RBC % Absolute Neutrophils Absolute Lymphocytes Absolute Monocytes Absolute Eosinophils Absolute Basophils RBC Morphology Basophilic Stippling Anisocytosis Acanthocytes (Spur) ESR 8 PT 11.1 H INR 1.1 APTT 25.6 Sodium Potassium Chloride Carbon Dioxide Anion Gap BUN Creatinine Est GFR (CKD-EPI 2020) Glucose Calcium Magnesium Total Bilirubin Conjugated Bilirubin AST ALT Alkaline Phosphatase Lactate Dehydrogenase C-Reactive Protein 0.37 H Total Protein Albumin 05/13/22 05/13/22 05/13/22 18:19 18:19 22:30 WBC 4.12 L RBC 3.15 L Hgb 7.6 L 7.4 L Hct 25.8 L 25.4 L MCV 82 MCH 24.1 L MCHC 29.5 L RDW 21.2 H Plt Count 100 L MPV 8.7 Immature Gran % 0.5 Neutrophils % 76.2 Lymphocytes % 14.3 Monocytes % 8.3 Eosinophils % 0.2 Basophils % 0.5 Nucleated RBC % 0.0 Absolute Neutrophils 3.14 Absolute Lymphocytes 0.59 L Absolute Monocytes 0.34 Absolute Eosinophils 0.01 Absolute Basophils 0.02 RBC Morphology Basophilic Stippling Present Anisocytosis 2+ Acanthocytes (Spur) ESR PT INR APTT Sodium 139 Potassium 3.2 L Chloride 101 Carbon Dioxide 27.5 Anion Gap 10.5 BUN 15 Creatinine 1.1 H Est GFR (CKD-EPI 2020) 52.08 Glucose 143 H Calcium 9.9 Magnesium Total Bilirubin 3.3 H Conjugated Bilirubin 0.9 H AST 49 H ALT 48 Alkaline Phosphatase 109 Lactate Dehydrogenase C-Reactive Protein Total Protein 7.0 Albumin 3.6 05/14/22 05/14/22 06:19 06:19 WBC 3.28 L RBC 2.93 L Hgb 7.1 L Hct 23.9 L MCV 82 MCH 24.2 L MCHC 29.7 L RDW 20.8 H Plt Count 75 L MPV 9.3 Immature Gran % 0.3 Neutrophils % 62.8 Lymphocytes % 25.6 Monocytes % 10.7 Eosinophils % 0.3 Basophils % 0.3 Nucleated RBC % 0.0 Absolute Neutrophils 2.06 Absolute Lymphocytes 0.84 L Absolute Monocytes 0.35 Absolute Eosinophils 0.01 Absolute Basophils 0.01 RBC Morphology See Below Basophilic Stippling Anisocytosis Acanthocytes (Spur) 1+ ESR PT INR APTT Sodium 136 Potassium 3.2 L Chloride 99 Carbon Dioxide 28.7 Anion Gap 8.3 BUN 11 Creatinine 0.8 Est GFR (CKD-EPI 2020) 76.31 Glucose 132 H Calcium 9.5 Magnesium 1.7 L Total Bilirubin 2.3 H Conjugated Bilirubin AST 42 H ALT 43 Alkaline Phosphatase 100 Lactate Dehydrogenase 136 C-Reactive Protein Total Protein 6.5 Albumin 3.4 PAWSS Have you Been Recently Intoxicated or Drunk Within the Last 30 days?: Yes Have you Ever Experienced Previous Episodes of Alcohol Withdrawal?: No Have you ever Experienced Withdrawal Seizures?: No Have you ever Experienced Delirium Tremens(DT)s?: No Have you ever undergone Alcohol Rehabilitation Treatment (i.e, inpt ot ou tpatient treatment programs)?: No Have you ever Experienced Blackouts?: No Have you ever Combined Alcohol with other Downers within the last 90 days?: No Have you ever Combined Alcohol with any other Substance of Abuse during the last 90 days?: No Evidence of Increased Autonomic Activity (i.e. HR>120, tremor, sweating, agitation, nausea)?: No Result: 1
[2022-05-14] MEDS: diphenhydrAMINE 25 MG CAP PO (13:45)
[2022-05-14] MEDS: Acetaminophen 325 MG TAB PO (13:45)
--- NOTE | 2022-05-14 15:48 | CHAPLAIN ---
Leticia was in bed when I visited. We know each other from previous admissions. She showed me that she was getting a couple of units of blood and told me that she's anemic. She's been sleeping a lot while she's here, she said. She has a new aide who comes to her house a few times a week and she likes this person and is enjoying her company. Leticia's sister is looking after Leticia's dog and four cats while she's here. Her animals are always a concern of hers.
--- NOTE | 2022-05-14 16:16 | PDOC.CMPRO ---
- If Service Date Differs Date of service: 05/14/22 Time of Service: 16:16 Care Management Progress Note S/O: Leticia was lying in bed when CM met with her today. She stated that she isn't feeling well today. She reported that her diet had been advanced and she did not tolerate it well. She also stated that she is now going to receive a unit of blood, and was seen by the surgeon. She is comfortable remaining overnight, as she is not feeling well. CM will continue to follow. A: Leticia is a 77 year old female admitted to [facility] on 05/13/22 for pancreatitis. P: Leticia will return home once medically cleared. She will be driven home via [facility] private vehicle when ready, coordinated by CM. She will follow up with her PCP and discharge plan of care. CM will continue to follow.
[2022-05-14] MEDS: Furosemide 20 MG/2 ML VIAL IVP (16:32)
--- NOTE | 2022-05-14 17:04 | W.PM.PROGNOT ---
Date of Service Date of service: 05/14/22 Time of Service: 07:00 Assessment and Plan Assessment and plan (1) Epigastric abdominal pain: Status: Acute Assessment and plan: I think her abdominal pain is most consistent with gastritis, especially in light of her decreasing hemoglobin. I understand she is transfused today, and I am certainly happy to follow her through the weekend. If she continues to have signs of ongoing bleeding, then there is probably some utility in an EGD to evaluate for ulcers, or specific foci of bleeding. Otherwise, she is basically maximized on medical therapy for gastritis. Subjective Subjective Interval history since last seen: She was able to eat a little bit of dinner last night, and says that she felt a little better through the evening. She continues to have some midepigastric, and mostly left upper quadrant discomfort. Food did not result in any nausea or vomiting, but it may have contributed to some more postprandial discomfort Exam GI Inspection: normal to inspection and non-distended Palpation: soft, no guarding, no hernias and tender (Minimal tenderness in the left upper quadrant about the same as yesterday. ) Other: The area overlying her gallbladder and around her right upper quadrant are really not tender at all. Objective Last Vital Signs Temp 98.1 F 05/14/22 16:35 Pulse 87 05/14/22 16:35 Resp 16 05/14/22 16:35 BP 155/84 H 05/14/22 16:35 Pulse Ox 94 05/14/22 16:35 Laboratory Results - last 24 hr 05/13/22 05/13/22 05/13/22 07:30 18:19 18:19 WBC RBC Hgb Hct MCV MCH MCHC RDW Plt Count MPV Immature Gran % Neutrophils % Lymphocytes % Monocytes % Eosinophils % Basophils % Nucleated RBC % Absolute Neutrophils Absolute Lymphocytes Absolute Monocytes Absolute Eosinophils Absolute Basophils RBC Morphology Basophilic Stippling Anisocytosis Acanthocytes (Spur) ESR 8 PT INR APTT Sodium Potassium Chloride Carbon Dioxide Anion Gap BUN Creatinine Est GFR (CKD-EPI 2020) Glucose Calcium Magnesium Total Bilirubin Conjugated Bilirubin AST ALT Alkaline Phosphatase Lactate Dehydrogenase C-Reactive Protein 0.37 H Total Protein Albumin Patient ABO/Rh A Negative Antibody Screen NEGATIVE Crossmatch See Detail 05/13/22 05/13/22 05/13/22 18:19 18:19 18:19 WBC 4.12 L RBC 3.15 L Hgb 7.6 L Hct 25.8 L MCV 82 MCH 24.1 L MCHC 29.5 L RDW 21.2 H Plt Count 100 L MPV 8.7 Immature Gran % 0.5 Neutrophils % 76.2 Lymphocytes % 14.3 Monocytes % 8.3 Eosinophils % 0.2 Basophils % 0.5 Nucleated RBC % 0.0 Absolute Neutrophils 3.14 Absolute Lymphocytes 0.59 L Absolute Monocytes 0.34 Absolute Eosinophils 0.01 Absolute Basophils 0.02 RBC Morphology Basophilic Stippling Present Anisocytosis 2+ Acanthocytes (Spur) ESR PT 11.1 H INR 1.1 APTT 25.6 Sodium 139 Potassium 3.2 L Chloride 101 Carbon Dioxide 27.5 Anion Gap 10.5 BUN 15 Creatinine 1.1 H Est GFR (CKD-EPI 2020) 52.08 Glucose 143 H Calcium 9.9 Magnesium Total Bilirubin 3.3 H Conjugated Bilirubin 0.9 H AST 49 H ALT 48 Alkaline Phosphatase 109 Lactate Dehydrogenase C-Reactive Protein Total Protein 7.0 Albumin 3.6 Patient ABO/Rh Antibody Screen Crossmatch 05/13/22 05/14/22 05/14/22 22:30 06:19 06:19 WBC 3.28 L RBC 2.93 L Hgb 7.4 L 7.1 L Hct 25.4 L 23.9 L MCV 82 MCH 24.2 L MCHC 29.7 L RDW 20.8 H Plt Count 75 L MPV 9.3 Immature Gran % 0.3 Neutrophils % 62.8 Lymphocytes % 25.6 Monocytes % 10.7 Eosinophils % 0.3 Basophils % 0.3 Nucleated RBC % 0.0 Absolute Neutrophils 2.06 Absolute Lymphocytes 0.84 L Absolute Monocytes 0.35 Absolute Eosinophils 0.01 Absolute Basophils 0.01 RBC Morphology See Below Basophilic Stippling Anisocytosis Acanthocytes (Spur) 1+ ESR PT INR APTT Sodium 136 Potassium 3.2 L Chloride 99 Carbon Dioxide 28.7 Anion Gap 8.3 BUN 11 Creatinine 0.8 Est GFR (CKD-EPI 2020) 76.31 Glucose 132 H Calcium 9.5 Magnesium 1.7 L Total Bilirubin 2.3 H Conjugated Bilirubin AST 42 H ALT 43 Alkaline Phosphatase 100 Lactate Dehydrogenase 136 C-Reactive Protein Total Protein 6.5 Albumin 3.4 Patient ABO/Rh Antibody Screen Crossmatch PAWSS Have you Been Recently Intoxicated or Drunk Within the Last 30 days?: Yes Have you Ever Experienced Previous Episodes of Alcohol Withdrawal?: No Have you ever Experienced Withdrawal Seizures?: No Have you ever Experienced Delirium Tremens(DT)s?: No Have you ever undergone Alcohol Rehabilitation Treatment (i.e, inpt ot outpatient treatment programs)?: No Have you ever Experienced Blackouts?: No Have you ever Combined Alcohol with other Downers within the last 90 days?: No Have you ever Combined Alcohol with any other Substance of Abuse during the last 90 days?: No Evidence of Increased Autonomic Activity (i.e. HR>120, tremor, sweating, agitation, nausea)?: No Result: 1
[2022-05-14 17:20] LABS: Potassium 3.2 mmol/L (3.5-5.1)
[2022-05-14] MEDS: POTASSIUM CHLORIDE 20 MEQ/100 ML BAG 50 MEQ IVPB ×2 (19:55→22:17)
[2022-05-14 20:18] LABS: HCT 34.4 % (36.0-46.0); HGB 10.7 g/dL (11.2-15.7)
[2022-05-14] MEDS: Mirtazapine 15 MG TAB 7.5 MG PO (21:08)
[2022-05-14] MEDS: Melatonin 3 MG TAB 6 MG PO (21:09)
[2022-05-15] MEDS: LORazepam 20 MG/10 ML VIAL IVP (01:46)
[2022-05-15] MEDS: Normal Saline Flush 10 ML SYR IVP ×3 (01:47→20:48)
[2022-05-15] MEDS: Refresh PLUS Eye Drops 0.4ml OU ×5 (04:16→20:48)
[2022-05-15] MEDS: Budesonide 0.5 MG/2 ML UPD VIAL IH (08:18)
[2022-05-15] MEDS: Pantoprazole 40 MG VIAL IVP ×2 (08:24→20:49)
[2022-05-15] MEDS: busPIRone 5 MG TAB PO ×2 (08:25→20:48)
[2022-05-15] MEDS: Metoprolol 50 MG TAB PO (08:25)
[2022-05-15] MEDS: Venlafaxine 75 MG CAPCR PO (08:25)
[2022-05-15] MEDS: amLODIPine 10 MG TAB PO (08:25)
[2022-05-15] MEDS: Sucralfate 1 GM TAB PO ×4 (08:25→21:19)
[2022-05-15] MEDS: QUEtiapine 25 MG TAB 12.5 MG PO ×2 (08:25→20:44)
[2022-05-15] MEDS: Thiamine 100 MG TAB PO (08:25)
[2022-05-15] MEDS: Ursodiol 300 MG CAP PO ×2 (08:25→20:44)
[2022-05-15] MEDS: Folic Acid 1 MG TAB PO (08:25)
[2022-05-15] MEDS: valACYclovir 500 MG TAB PO ×2 (08:26→20:44)
[2022-05-15 08:37] LABS: Abs Immature Grans 0.02 10^3/uL (0.0-0.06); Absolute Basophil Count 0.01 10^3/uL (0.0-0.2); Absolute Eosinophil Count 0.01 10^3/uL (0.0-0.7); Absolute Lymphocyte Count 0.71 10^3/uL (1.2-3.4); Absolute Monocyte Count 0.23 10^3/uL (0.1-0.8); Absolute Neutrophil Count 1.38 10^3/uL (1.2-6.7); Basophils % 0.4; Eosinophils % 0.4; HCT 35.7 % (36.0-46.0); Immature Grans % 0.8; Lymphocytes % 30.1; MCH 25.6 pg (27.0-33.0); MCHC 30.8 % (32.0-36.0); MCV 83 fL (80-95); MPV 9.2 fL (8.0-11.0); Monocytes % 9.7; Neutrophils % 58.6; RBC 4.29 10^6/uL (3.93-5.22); RDW 18.6 % (11.7-14.6); RDW-SD 54.9 fL; WBC 2.36 10^3/uL (4.4-10.8)
[2022-05-15 08:53] VITALS: BP 164/82; PULSE 84; RESP 18; TEMP 36.9; O2SAT 95
[2022-05-15 08:59] LABS: Diff Comment PLT Morph Reviewed; Platelet Count 82 10^3/uL (130-400)
[2022-05-15 09:01] LABS: Anisocytosis 2+; Polychromasia Present
[2022-05-15 09:04] LABS: ALT 50 U/L (14-59); AST 60 U/L (15-37); Albumin 3.4 g/dL (3.4-5.0); Alkaline Phosphatase 105 U/L (46-116); Anion Gap 7.8 mmol/L (3-11); BUN 7 mg/dL (7-18); Bilirubin, Total 2.5 mg/dL (0.2-1.0); CO2 29.2 mmol/L (21.0-32.0); CREATININE 0.8 mg/dL (0.55-1.02); Calcium 9.6 mg/dL (8.5-10.1); Chloride 100 mmol/L (98-107); Estimated GFR 76.31 (mL/min/1.73m2); Glucose 117 mg/dL (74-106); Magnesium 1.9 mg/dL (1.8-2.4); Potassium 3.3 mmol/L (3.5-5.1); Sodium 137 mmol/L (136-145)
--- NOTE | 2022-05-15 10:48 | W.PM.PROGNOT ---
Date of Service Date of service: 05/15/22 Time of Service: 10:57 Assessment and Plan Assessment and plan (1) Epigastric abdominal pain: Status: Acute Assessment and plan: Differential diagnosis peptic ulcer disease, pancreatitis, cholecystitis. In light of her recent abnormal CT scan of her abdomen and her abnormal abdominal ultrasound showing gallbladder wall thickening pericholecystic fluid gallstones and some questionable air in the gallbladder. I will check a HIDA scan. We have been empirically treating her for possible peptic ulcer disease. She has been chronically on a PPI for alcoholic gastritis and esophagitis she is also on Carafate. I discontinued the misoprostol yesterday that I put her on 2 days ago because I was concerned that maybe this was adding to her abdominal discomfort. Professional time spent interviewing and examining patient, discussion of goals of care with hospital team (care management, nursing and consulting professionals) was 20 minutes. (2) Gallstones: Status: Acute Assessment and plan: As above (3) Anemia: Status: Chronic Assessment and plan: Her anemia has improved with transfusion. Hemoglobin came up to 11 g this morning from a low of 7.1 g yesterday. I do believe that her anemia is from some ongoing bleeding issues in addition to delusional. We will continue to monitor H&H throughout the day today. She will remain on Protonix and Carafate. (4) Alcohol abuse: Status: Chronic Assessment and plan: History of chronic alcohol abuse. However historically she has not ever gone into acute alcohol withdrawal. (5) Transaminitis: Status: Acute Assessment and plan: Improving with hydration and abstinence from alcohol (6) Depression: Status: Chronic Assessment and plan: Cont venlafaxine, buspar, mirtazapine (7) Hypomagnesemia: Status: Acute Assessment and plan: Replete and monitor (8) Palliative care patient: Assessment and plan: Dr. Young consulted on the patient yesterday and has gone over Leticia's code status with her and corrected her DNR/DNI status. Subjective Subjective Interval history since last seen: Patient reportedly was hallucinating last night was medicated with Ativan. I was called to see this morning because nursing was concerned that she was confused thinking that she was at home thinking that her parents were here in the room with her. area loss prevention manager came and got me. Upon my evaluation of the patient she is totally alert and oriented to person place time circumstance she knows that I am her doctor knows why she is here in the hospital because of her recurrent nausea vomiting and abdominal pain. She also knows the month of the year and the name of the hospital. I explained to nursing staff that she is never gone through acute alcohol withdrawal and I do not feel that she is in withdrawal now. In that sure where this was a post hypnagogic hallucination or whether there is some behavioral issues with her acting out for nursing staff. I will check an ammonia level to make sure she is not having hepatic encephalopathy. Because she is having continuing epigastric and now some right upper quadrant pain I will get a HIDA scan. Exam Narrative Exam Narrative: Julia is awake alert oriented person place time circumstance. Lungs are clear to auscultation Heart regular rate and rhythm Abdomen slightly distended normal bowel sounds soft but tender in the epigastrium and right upper quadrant without rebound tenderness. Extremities without edema normal range of motion and strength. Objective Last Vital Signs Temp 36.9 C 05/15/22 08:53 Pulse 84 05/15/22 08:53 Resp 18 05/15/22 08:53 BP 164/82 H 05/15/22 08:53 Pulse Ox 95 05/15/22 08:53 Laboratory Results - last 24 hr 05/13/22 05/14/22 05/14/22 07:30 17:00 19:57 WBC RBC Hgb 10.7 L D Hct 34.4 L MCV MCH MCHC RDW Plt Count MPV Immature Gran % Neutrophils % Lymphocytes % Monocytes % Eosinophils % Basophils % Nucleated RBC % Absolute Neutrophils Absolute Lymphocytes Absolute Monocytes Absolute Eosinophils Absolute Basophils RBC Morphology Polychromasia Anisocytosis Sodium Potassium 3.2 L Chloride Carbon Dioxide Anion Gap BUN Creatinine Est GFR (CKD-EPI 2020) Glucose Calcium Magnesium Total Bilirubin AST ALT Alkaline Phosphatase Total Protein Albumin Patient ABO/Rh A Negative Antibody Screen NEGATIVE Crossmatch See Detail 05/15/22 05/15/22 07:30 07:30 WBC 2.36 L RBC 4.29 Hgb 11.0 L Hct 35.7 L MCV 83 MCH 25.6 L MCHC 30.8 L RDW 18.6 H Plt Count 82 L MPV 9.2 Immature Gran % 0.8 Neutrophils % 58.6 Lymphocytes % 30.1 Monocytes % 9.7 Eosinophils % 0.4 Basophils % 0.4 Nucleated RBC % 0.0 Absolute Neutrophils 1.38 Absolute Lymphocytes 0.71 L Absolute Monocytes 0.23 Absolute Eosinophils 0.01 Absolute Basophils 0.01 RBC Morphology See Below Polychromasia Present Anisocytosis 2+ Sodium 137 Potassium 3.3 L Chloride 100 Carbon Dioxide 29.2 Anion Gap 7.8 BUN 7 Creatinine 0.8 Est GFR (CKD-EPI 2020) 76.31 Glucose 117 H Calcium 9.6 Magnesium 1.9 Total Bilirubin 2.5 H AST 60 H ALT 50 Alkaline Phosphatase 105 Total Protein 7.0 Albumin 3.4 Patient ABO/Rh Antibody Screen Crossmatch PAWSS Have you Been Recently Intoxicated or Drunk Within the Last 30 days?: Yes Have you Ever Experienced Previous Episodes of Alcohol Withdrawal?: No Have you ever Experienced Withdrawal Seizures?: No Have you ever Experienced Delirium Tremens(DT)s?: No Have you ever undergone Alcohol Rehabilitation Treatment (i.e, inpt ot outpatient treatment programs)?: No Have you ever Experienced Blackouts?: No Have you ever Combined Alcohol with other Downers within the last 90 days?: No Have you ever Combined Alcohol with any other Substance of Abuse during the last 90 days?: No Evidence of Increased Autonomic Activity (i.e. HR>120, tremor, sweating, agitation, nausea)?: No Result: 1
[2022-05-15] MEDS: POTASSIUM CHLORIDE 20 MEQ/100 ML BAG 50 MEQ IVPB ×2 (11:47→13:47)
[2022-05-15 12:26] LABS: Ammonia 30 umol/L (11-32)
--- NOTE | 2022-05-15 14:02 | CMPROGNOTE_ITS ---
- If Service Date Differs Date of service: 05/15/22 Time of Service: 14:02 Care Management Progress Note At Leticia's request CM outreached to her sister, Robyn. Robyn reported she was checking on the animals, and would look for Leticia's necklace that holds her cards and life alert. She also stated she would make sure her bubble packed meds were on her walker at home. Robyn advised that Leticia does not have a caregiver, she has a concrete buster operator named Marry that comes in 3x/wk for two hours and cleans but does not provide any personal care for Leticia. Robyn did not have Marry's number and did not feel it appropriate to outreach to her as she is not providing care to Leticia or managing any of her affairs.
[2022-05-15 15:48] VITALS: BP 154/87; PULSE 84; RESP 16; TEMP 36.4; O2SAT 95
[2022-05-15] MEDS: MEROPENEM 1 GM in Normal Saline 100 ML IVPB (15:57)
[2022-05-15 17:04] LABS: HCT 36.5 % (36.0-46.0); HGB 11.3 g/dL (11.2-15.7)
[2022-05-15 17:18] LABS: Potassium 4.2 mmol/L (3.5-5.1)
[2022-05-15] MEDS: Melatonin 3 MG TAB 6 MG PO (21:19)
[2022-05-15] MEDS: Mirtazapine 15 MG TAB PO (21:19)
[2022-05-15 22:25] LABS: Lipase 103 U/L (73-393)
[2022-05-16] VITALS (8 sets, daily range): BP systolic 136–180; BP diastolic 77–93; PULSE 75–102; RESP 1–17; TEMP 36.6–37.3; O2SAT 95–97
[2022-05-16] MEDS: MEROPENEM 1 GM in Normal Saline 100 ML IVPB ×3 (00:27→20:28)
[2022-05-16] MEDS: Refresh PLUS Eye Drops 0.4ml OU ×6 (00:28→20:28)
[2022-05-16 07:30] LABS: Abs Immature Grans 0.02 10^3/uL (0.0-0.06); Absolute Basophil Count 0.01 10^3/uL (0.0-0.2); Absolute Eosinophil Count 0.01 10^3/uL (0.0-0.7); Absolute Monocyte Count 0.25 10^3/uL (0.1-0.8); Absolute Neutrophil Count 1.55 10^3/uL (1.2-6.7); Basophils % 0.4; Eosinophils % 0.4; HCT 34.3 % (36.0-46.0); HGB 10.4 g/dL (11.2-15.7); Immature Grans % 0.9; Lymphocytes % 21.4; MCH 25.8 pg (27.0-33.0); MCHC 30.3 % (32.0-36.0); MCV 85 fL (80-95); MPV 9.4 fL (8.0-11.0); Monocytes % 10.7; Neutrophils % 66.2; RBC 4.03 10^6/uL (3.93-5.22); RDW 19.3 % (11.7-14.6); RDW-SD 56.8 fL; WBC 2.34 10^3/uL (4.4-10.8)
[2022-05-16] MEDS: Sucralfate 1 GM TAB PO ×4 (07:48→22:10)
[2022-05-16] MEDS: Ursodiol 300 MG CAP PO ×2 (07:48→20:23)
[2022-05-16] MEDS: Folic Acid 1 MG TAB PO (07:48)
[2022-05-16] MEDS: valACYclovir 500 MG TAB PO (07:48)
[2022-05-16] MEDS: busPIRone 5 MG TAB PO ×2 (07:49→20:23)
[2022-05-16] MEDS: Metoprolol 50 MG TAB PO (07:49)
[2022-05-16] MEDS: Venlafaxine 75 MG CAPCR PO (07:49)
[2022-05-16] MEDS: QUEtiapine 25 MG TAB 12.5 MG PO ×2 (07:49→20:23)
[2022-05-16] MEDS: amLODIPine 10 MG TAB PO (07:49)
[2022-05-16 07:50] LABS: ALT 49 U/L (14-59); AST 44 U/L (15-37); Albumin 2.9 g/dL (3.4-5.0); Alkaline Phosphatase 99 U/L (46-116); Anion Gap 8.4 mmol/L (3-11); BUN 9 mg/dL (7-18); Bilirubin, Total 1.7 mg/dL (0.2-1.0); CO2 26.6 mmol/L (21.0-32.0); CREATININE 0.9 mg/dL (0.55-1.02); Chloride 103 mmol/L (98-107); Estimated GFR 66.26 (mL/min/1.73m2); Glucose 124 mg/dL (74-106); Potassium 3.3 mmol/L (3.5-5.1); Sodium 138 mmol/L (136-145); Total Protein 6.4 g/dL (6.4-8.2)
[2022-05-16] MEDS: Thiamine 100 MG TAB PO (07:50)
[2022-05-16] MEDS: Pantoprazole 40 MG VIAL IVP ×2 (07:51→20:27)
[2022-05-16] MEDS: Normal Saline Flush 10 ML SYR IVP ×3 (07:51→22:10)
[2022-05-16 08:15] LABS: Platelet Count 89 10^3/uL (130-400)
[2022-05-16 08:16] LABS: Anisocytosis 2+; Diff Comment PLT Morph Reviewed; Polychromasia Present
[2022-05-16] MEDS: Budesonide 0.5 MG/2 ML UPD VIAL IH (08:43)
[2022-05-16] MEDS: Albuterol 2.5 MG/3 ML INH SOLN VIAL UPD (08:43)
[2022-05-16 08:51] LABS: Lab Add On Test COMPLETED
[2022-05-16 08:57] LABS: Magnesium 1.7 mg/dL (1.8-2.4)
[2022-05-16] MEDS: Potassium Chloride 10 MEQ CAPCR 20 MEQ PO ×3 (09:13→20:23)
[2022-05-16] MEDS: POTASSIUM CHLORIDE 20 MEQ/100 ML BAG 50 MEQ IVPB ×2 (09:15→11:28)
--- NOTE | 2022-05-16 10:19 | W.PM.PROGNOT ---
Date of Service Date of service: 05/16/22 Time of Service: 10:19 Assessment and Plan Assessment and plan (1) Epigastric abdominal pain: Status: Acute Assessment and plan: General, I think her labs, vital signs, and exam have been reassuring over the past 48 hours or so. Certainly, she responded nicely to the transfusion of packed red blood cells, and her bilirubin has improved significantly. Overall, I think she is doing a little better, but her ongoing pain remains a little puzzling. I do still think it is most consistent with gastritis as opposed to cholecystitis, but certainly physical exam can be a little tricky. Especially in light of her comorbidities. From my standpoint, I think any diet that she tolerates is reasonable. I am happy to check up on her again over the next 24 hours to see how she evolves. Subjective Subjective Interval history since last seen: She tells me that she is continuing to have midepigastric abdominal pain. She thinks that she might of had 1 spell on the right side yesterday, but the majority of her discomfort remains more towards the left side. She does have a little more appetite over the past few days, and she is hungry this morning. Exam GI Inspection: normal to inspection Palpation: soft, no guarding and tender (Minimal midepigastric and left upper quadrant tenderness.) Objective Last Vital Signs Temp 99.1 F 05/16/22 09:01 Pulse 102 H 05/16/22 09:01 Resp 16 05/16/22 09:01 BP 179/92 H 05/16/22 09:01 Pulse Ox 95 05/16/22 09:01 Laboratory Results - last 24 hr 05/15/22 05/15/22 05/15/22 11:57 16:45 16:45 WBC RBC Hgb 11.3 Hct 36.5 MCV MCH MCHC RDW Plt Count MPV Immature Gran % Neutrophils % Lymphocytes % Monocytes % Eosinophils % Basophils % Nucleated RBC % Absolute Neutrophils Absolute Lymphocytes Absolute Monocytes Absolute Eosinophils Absolute Basophils RBC Morphology Polychromasia Anisocytosis Sodium Potassium Chloride Carbon Dioxide Anion Gap BUN Creatinine Est GFR (CKD-EPI 2020) Glucose Calcium Magnesium Total Bilirubin AST ALT Alkaline Phosphatase Ammonia 30 Total Protein Albumin Lipase 103 Add-On Test Request 05/15/22 05/16/22 05/16/22 16:45 06:35 06:35 WBC 2.34 L RBC 4.03 Hgb 10.4 L Hct 34.3 L MCV 85 MCH 25.8 L MCHC 30.3 L RDW 19.3 H Plt Count 89 L MPV 9.4 Immature Gran % 0.9 Neutrophils % 66.2 Lymphocytes % 21.4 Monocytes % 10.7 Eosinophils % 0.4 Basophils % 0.4 Nucleated RBC % 0.0 Absolute Neutrophils 1.55 Absolute Lymphocytes 0.50 L Absolute Monocytes 0.25 Absolute Eosinophils 0.01 Absolute Basophils 0.01 RBC Morphology See Below Polychromasia Present Anisocytosis 2+ Sodium 138 Potassium 4.2 3.3 L Chloride 103 Carbon Dioxide 26.6 Anion Gap 8.4 BUN 9 Creatinine 0.9 Est GFR (CKD-EPI 2020) 66.26 Glucose 124 H Calcium 9.0 Magnesium 1.7 L Total Bilirubin 1.7 H AST 44 H ALT 49 Alkaline Phosphatase 99 Ammonia Total Protein 6.4 Albumin 2.9 L Lipase Add-On Test Request 05/16/22 08:50 WBC RBC Hgb Hct MCV MCH MCHC RDW Plt Count MPV Immature Gran % Neutrophils % Lymphocytes % Monocytes % Eosinophils % Basophils % Nucleated RBC % Absolute Neutrophils Absolute Lymphocytes Absolute Monocytes Absolute Eosinophils Absolute Basophils RBC Morphology Polychromasia Anisocytosis Sodium Potassium Chloride Carbon Dioxide Anion Gap BUN Creatinine Est GFR (CKD-EPI 2020) Glucose Calcium Magnesium Total Bilirubin AST ALT Alkaline Phosphatase Ammonia Total Protein Albumin Lipase Add-On Test Request COMPLETED PAWSS Have you Been Recently Intoxicated or Drunk Within the Last 30 days?: Yes Have you Ever Experienced Previous Episodes of Alcohol Withdrawal?: No Have you ever Experienced Withdrawal Seizures?: No Have you ever Experienced Delirium Tremens(DT)s?: No Have you ever undergone Alcohol Rehabilitation Treatment (i.e, inpt ot outpatient treatment programs)?: No Have you ever Experienced Blackouts?: No Have you ever Combined Alcohol with other Downers within the last 90 days?: No Have you ever Combined Alcohol with any other Substance of Abuse during the last 90 days?: No Evidence of Increased Autonomic Activity (i.e. HR>120, tremor, sweating, agitation, nausea)?: No Result: 1
--- NOTE | 2022-05-16 17:20 | W.PM.PROGNOT ---
Date of Service Date of service: 05/16/22 Time of Service: 17:20 Assessment and Plan Assessment and plan (1) Epigastric abdominal pain: Status: Acute Assessment and plan: Differential diagnosis still include peptic ulcer disease, pancreatitis, cholecystitis. Due to recent abnormal CT scan of her abdomen and her abnormal abdominal ultrasound showing gallbladder wall thickening pericholecystic fluid gallstones and some questionable air in the gallbladder, a HIDA scan is pending for tomorrow. Continue to empirically treat her for possible peptic ulcer disease. She has been chronically on a PPI for alcoholic gastritis and esophagitis she is also on Carafate. misoprostol discontinued as it was concerned that maybe this was adding to her abdominal discomfort. surgery following along with no new recommendations at this time while HIDA pending. (2) Gallstones: Status: Acute Assessment and plan: As above (3) Anemia: Status: Chronic Assessment and plan: Her anemia has improved with transfusion. Hemoglobin stable will continue to monitor H&H. She will remain on Protonix and Carafate. (4) Alcohol abuse: Status: Chronic Assessment and plan: History of chronic alcohol abuse. However historically she has not ever gone into acute alcohol withdrawal. (5) Transaminitis: Status: Acute Assessment and plan: Improving with hydration and abstinence from alcohol (6) Depression: Status: Chronic Assessment and plan: Cont venlafaxine, buspar, mirtazapine (7) Hypomagnesemia: Status: Acute Assessment and plan: Replete and monitor repleting potassium also. (8) Palliative care patient: Assessment and plan: Dr. Young consulted on the patient yesterday and has gone over Leticia's code status with her and corrected her DNR/DNI status. discussed with DR Blake Subjective Subjective Patient reports: no new complaints, feels better, tolerating liquids well, tolerating a regular diet, voiding w/o difficulty (incontinent), bowel movement (large soft) and afebrile; denies shortness of breath Exam Const General: cooperative, comfortable and no acute distress Nutritional Appearance: thin Orientation: alert, awake and oriented x3 HENMT Head: normal to inspection, normocephalic and atraumatic Mouth: oral mucosae normal Neck Neck: normal visual inspection Chest Chest: normal inspection of the chest Resp Effort & Inspection: normal respiratory effort and able to speak in complete sentences Cardio Rate: regular rate Rhythm: regular rhythm GI Inspection: normal to inspection Palpation: soft, no guarding and tender (Minimal midepigastric and left upper quadrant tenderness.) Skin General skin exam: no rashes or lesions noted Neuro General: patient alert, patient awake, patient oriented x3 and no focal motor deficits Extrem General: normal to inspection and no pedal edema Objective Last Vital Signs Temp 36.6 C 05/16/22 15:00 Pulse 75 05/16/22 15:00 Resp 17 05/16/22 15:00 BP 142/78 H 05/16/22 15:00 Pulse Ox 96 05/16/22 15:00 Laboratory Results - last 24 hr 05/15/22 05/16/22 05/16/22 16:45 06:35 06:35 WBC 2.34 L RBC 4.03 Hgb 10.4 L Hct 34.3 L MCV 85 MCH 25.8 L MCHC 30.3 L RDW 19.3 H Plt Count 89 L MPV 9.4 Immature Gran % 0.9 Neutrophils % 66.2 Lymphocytes % 21.4 Monocytes % 10.7 Eosinophils % 0.4 Basophils % 0.4 Nucleated RBC % 0.0 Absolute Neutrophils 1.55 Absolute Lymphocytes 0.50 L Absolute Monocytes 0.25 Absolute Eosinophils 0.01 Absolute Basophils 0.01 RBC Morphology See Below Polychromasia Present Anisocytosis 2+ Sodium 138 Potassium 3.3 L Chloride 103 Carbon Dioxide 26.6 Anion Gap 8.4 BUN 9 Creatinine 0.9 Est GFR (CKD-EPI 2020) 66.26 Glucose 124 H Calcium 9.0 Magnesium 1.7 L Total Bilirubin 1.7 H AST 44 H ALT 49 Alkaline Phosphatase 99 Total Protein 6.4 Albumin 2.9 L Lipase 103 Add-On Test Request 05/16/22 08:50 WBC RBC Hgb Hct MCV MCH MCHC RDW Plt Count MPV Immature Gran % Neutrophils % Lymphocytes % Monocytes % Eosinophils % Basophils % Nucleated RBC % Absolute Neutrophils Absolute Lymphocytes Absolute Monocytes Absolute Eosinophils Absolute Basophils RBC Morphology Polychromasia Anisocytosis Sodium Potassium Chloride Carbon Dioxide Anion Gap BUN Creatinine Est GFR (CKD-EPI 2020) Glucose Calcium Magnesium Total Bilirubin AST ALT Alkaline Phosphatase Total Protein Albumin Lipase Add-On Test Request COMPLETED PAWSS Have you Been Recently Intoxicated or Drunk Within the Last 30 days?: Yes Have you Ever Experienced Previous Episodes of Alcohol Withdrawal?: No Have you ever Experienced Withdrawal Seizures?: No Have you ever Experienced Delirium Tremens(DT)s?: No Have you ever undergone Alcohol Rehabilitation Treatment (i.e, inpt ot outpatient treatment programs)?: No Have you ever Experienced Blackouts?: No Have you ever Combined Alcohol with other Downers within the last 90 days?: No Have you ever Combined Alcohol with any other Substance of Abuse during the last 90 days?: No Evidence of Increased Autonomic Activity (i.e. HR>120, tremor, sweating, agitation, nausea)?: No Result: 1
[2022-05-16] MEDS: Melatonin 3 MG TAB 6 MG PO (22:09)
[2022-05-16] MEDS: Mirtazapine 15 MG TAB PO (22:10)
--- NOTE | 2022-05-17 | DI.NM_ITS ---
Exam(s) NM HEPATOBILIARY SCAN GRP EXAM: NM HEPATOBILIARY SCAN GRP CLINICAL HISTORY: Cholelithiasis epigastric abdominal pain. TECHNIQUE: Injected dose: 5 mCi Tc-99 mebrofenin Initial dynamic images: 60 minutes Additional images: Delayed images at 90 minutes and 2 hours COMPARISON: US US ABDOMEN LIMITED from 05/13/[address] ABDOMEN PELVIS W from 05/13/2022 FINDINGS: Normal hepatic transit time. Prompt excretion into the small bowel. Gallbladder not visualized. IMPRESSION: 1. Non visualization of the gallbladder, suspicious for cholecystitis. SNM guidelines: Gallbladder visualization should be present by 3 hours. Delayed [id number] rausch sit beyond 60 min raises the suspicion for partial common bile duct (CBD) obstruction. Gallbladder ejection fraction <35% has a good correlation with acalculous disease (i.e., chronic acal culous cholecystitis, cystic duct syndrome, sphincter of Oddi disease).
[2022-05-17 07:17] LABS: Abs Immature Grans 0.03 10^3/uL (0.0-0.06); Absolute Basophil Count 0.02 10^3/uL (0.0-0.2); Absolute Eosinophil Count 0.01 10^3/uL (0.0-0.7); Absolute Lymphocyte Count 0.68 10^3/uL (1.2-3.4); Absolute Monocyte Count 0.29 10^3/uL (0.1-0.8); Absolute Neutrophil Count 1.76 10^3/uL (1.2-6.7); Basophils % 0.7; Eosinophils % 0.4; HCT 37.8 % (36.0-46.0); HGB 11.4 g/dL (11.2-15.7); Immature Grans % 1.1; Lymphocytes % 24.4; MCH 25.8 pg (27.0-33.0); MCHC 30.2 % (32.0-36.0); MCV 86 fL (80-95); Monocytes % 10.4; RBC 4.42 10^6/uL (3.93-5.22); RDW-SD 60.4 fL; WBC 2.79 10^3/uL (4.4-10.8)
[2022-05-17 07:36] LABS: Anisocytosis 2+; Diff Comment Diff Reviewed; Hypochromasia 1+; Polychromasia Present
[2022-05-17 07:42] LABS: Anion Gap 9.3 mmol/L (3-11); BUN 11 mg/dL (7-18); CO2 24.7 mmol/L (21.0-32.0); CREATININE 0.9 mg/dL (0.55-1.02); Calcium 9.5 mg/dL (8.5-10.1); Chloride 103 mmol/L (98-107); Estimated GFR 66.26 (mL/min/1.73m2); Glucose 122 mg/dL (74-106); Potassium 4.3 mmol/L (3.5-5.1); Sodium 137 mmol/L (136-145)
[2022-05-17 08:18] VITALS: BP 177/83; PULSE 97; RESP 18; TEMP 37; O2SAT 96
[2022-05-17] MEDS: Prochlorperazine 10 MG/2 ML VIAL IVP (08:45)
[2022-05-17] MEDS: Normal Saline Flush 10 ML SYR IVP ×2 (08:46→09:53)
[2022-05-17] MEDS: MEROPENEM 1 GM in Normal Saline 100 ML IVPB ×2 (08:48→20:26)
[2022-05-17] MEDS: Albuterol 2.5 MG/3 ML INH SOLN VIAL UPD (08:54)
[2022-05-17] MEDS: Budesonide 0.5 MG/2 ML UPD VIAL IH (08:55)
[2022-05-17 09:13] VITALS: PULSE 95; RESP 24; RESP 8; O2SAT 96
[2022-05-17] MEDS: Refresh PLUS Eye Drops 0.4ml OU ×3 (09:50→20:26)
[2022-05-17] MEDS: Metoprolol 50 MG TAB PO (09:51)
[2022-05-17] MEDS: amLODIPine 10 MG TAB PO (09:51)
[2022-05-17] MEDS: Pantoprazole 40 MG VIAL IVP (09:53)
--- NOTE | 2022-05-17 10:41 | PCPN_ITS ---
Date of service: 05/17/22 Time of Service: 07:00 Assessment and Plan Assessment and plan (1) 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 ascites: Status: Acute (2) Epigastric abdominal pain: Status: Acute (3) Anemia: Status: Chronic (4) Advance care planning: Status: Acute Assessment and plan: Leticia seems to be improving. There is question as to whether or not it was gastritis or acute cholecystitis. Labs are improving. This seems to be the way that Leticia cycles through her admissions. I am glad that she is feeling better. Will follow her outpatient. Subjective Subjective Interval history since last seen: Leticia has been advancing her diet. There is some question as to whether or not she had acute Nidia cystitis versus chronic gastritis. She seems to be doing b darin and is anxious to think about going home and being back with her dogs Exam Narrative Exam Narrative: Lying in bed, cooperative, alert and oriented x3. No acute distress. Her heart is regular. Abdomen mildly tender. She seems jovial Objective Last Vital Signs Temp 98.6 F 05/17/22 08:18 Pulse 95 H 05/17/22 09:13 Resp 24 05/17/22 09:13 BP 177/83 H 05/17/22 08:18 Pulse Ox 96 05/17/22 09:13 Laboratory Results - last 24 hr 05/17/22 05/17/22 06:35 06:35 WBC 2.79 L RBC 4.42 Hgb 11.4 Hct 37.8 MCV 86 MCH 25.8 L MCHC 30.2 L RDW 20.0 H Plt Count MPV Immature Gran % 1.1 Neutrophils % 63.0 Lymphocytes % 24.4 Monocytes % 10.4 Eosinophils % 0.4 Basophils % 0.7 Nucleated RBC % 0.0 Absolute Neutrophils 1.76 Absolute Lymphocytes 0.68 L Absolute Monocytes 0.29 Absolute Eosinophils 0.01 Absolute Basophils 0.02 RBC Morphology See Below Polychromasia Present Hypochromasia 1+ Anisocytosis 2+ Sodium 137 Potassium 4.3 D Chloride 103 Carbon Dioxide 24.7 Anion Gap 9.3 BUN 11 Creatinine 0.9 Est GFR (CKD-EPI 2020) 66.26 Glucose 122 H Calcium 9.5
--- NOTE | 2022-05-17 13:46 | PGE_ITS ---
Date of Service Date of service: 05/17/22 Time of Service: 16:59 Assessment and Plan Assessment and plan (1) Epigastric abdominal pain: Status: Acute Assessment and plan: HIDA scan is definitely suspicious for cholecystitis. I did discuss this with Leticia. We reviewed the risks and benefits of doing a laparoscopic cholecystectomy. I did tell her that she was at increased risk for complications during the surgery especially bleeding from the liver bed. She is also a slight increased risk of having to go open due to bleeding. Her calculated MELD score is 9. Child-Soler Class is A, which is well compensated cirrhosis. Her surgical risk calculator does show that she is at increased risk for severe complications, longer stay in the hospital as well as possible need for rehab afterwards. After discussing all of this with the patient she would like to proceed with continuing with antibiotics at this time. If she has continued pain or her pain gets worse then she may want to pursue surgery. I did discuss with her that there is a risk of postponing surgery as she may get sicker. I told her we would check in with her tomorrow and see how she is doing and chaz cedillo discussed surgery versus continued antibiotic treatment. (2) 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 ascites: Status: Acute Assessment and plan: MELD score 9 Child-soler Class A Subjective Subjective Interval history since last seen: Ms Ingram back from having her HIDA scan done. She tells me that she has no abdominal pain right now. She is hungry and wants to eat. When I asked her to show me where her pain is she points to the epigastric left upper and somewhat right upper quadrant area. She continues to not have any fevers. Her white count is low today. There is no shift. HIDA scan did show that there was no uptake to the gallbladder which is suspicious for cholecystitis. Treatment complaint of chest pain. She does have shortness of breath with activity. She lives a very sedentary life as she is blind in the right eye and has a cataract in the left eye. She lives alone with her dogs. Her only surgery was about 20 years ago where she had a bladder suspension surgery. She did have an adverse reaction to that. She ended up with a migraine headache for 2 days. She has had a colonoscopy in the past and did not have any issues with the propofol. Exam Const General: comfortable and no acute distress Orientation: alert and oriented x3 HENMT Head: normocephalic and atraumatic Resp Effort & Inspection: normal respiratory effort Auscultation: clear to auscultation bilaterally Cardio Rate: regular rate Rhythm: regular rhythm GI Inspection: normal to inspection Palpation: soft, no hepatosplenomegaly, no hernias and nontender Objective Last Vital Signs Temp 98.6 F 05/17/22 08:18 Pulse 95 H 05/17/22 09:13 Resp 24 05/17/22 09:13 BP 177/83 H 05/17/22 08:18 Pulse Ox 96 05/17/22 09:13 Laboratory Results - last 24 hr 05/17/22 05/17/22 06:35 06:35 WBC 2.79 L RBC 4.42 Hgb 11.4 Hct 37.8 MCV 86 MCH 25.8 L MCHC 30.2 L RDW 20.0 H Plt Count MPV Immature Gran % 1.1 Neutrophils % 63.0 Lymphocytes % 24.4 Monocytes % 10.4 Eosinophils % 0.4 Basophils % 0.7 Nucleated RBC % 0.0 Absolute Neutrophils 1.76 Absolute Lymphocytes 0.68 L Absolute Monocytes 0.29 Absolute Eosinophils 0.01 Absolute Basophils 0.02 RBC Morphology See Below Polychromasia Present Hypochromasia 1+ Anisocytosis 2+ Sodium 137 Potassium 4.3 D Chloride 103 Carbon Dioxide 24.7 Anion Gap 9.3 BUN 11 Creatinine 0.9 Est GFR (CKD-EPI 2020) 66.26 Glucose 122 H Calcium 9.5 PAWSS Have you Been Recently Intoxicated or Drunk Within the Last 30 days?: Yes Have you Ever Experienced Previous Episodes of Alcohol Withdrawal?: No Have you ever Experienced Withdrawal Seizures?: No Have you ever Experienced Delirium Tremens(DT)s?: No Have you ever undergone Alcohol Rehabilitation Treatment (i.e, inpt ot outpatient treatment programs)?: No Have you ever Experienced Blackouts?: No Have you ever Combined Alcohol with other Downers within the last 90 days?: No Have you ever Combined Alcohol with any other Substance of Abuse during the last 90 days?: No Evidence of Increased Autonomic Activity (i.e. HR>120, tremor, sweating, agitation, nausea)?: No Result: 1
[2022-05-17] MEDS: Sucralfate 1 GM TAB PO ×2 (15:15→20:34)
[2022-05-17 16:02] VITALS: BP 148/80; PULSE 71; RESP 18; TEMP 36.8; O2SAT 96
--- NOTE | 2022-05-17 17:35 | PGE_ITS ---
Date of Service Date of service: 05/17/22 Time of Service: 17:35 Assessment and Plan Assessment and plan (1) Acute cholecystitis: Status: Acute Assessment and plan: Continue meropenem. For now allowing the patient to eat a low-fat diet as tolerated but if she starts getting nauseated and having vomiting then we will make her n.p.o. and surgery will discuss with her again the need for cholecystectomy (2) Epigastric abdominal pain: Status: Acute Assessment and plan: Differential diagnoses include peptic ulcer disease, alcoholic gastritis, cholecystitis. While her worsening anemia that required blood transfusion would have suggested peptic ulcer disease her abnormal HIDA scan and abnormal ultrasound and CT scan of her abdomen are more indicative of a cholecystitis. She very well could have a combination of 2 different abdominal processes contributing to her epigastric abdominal pain. For treatment of potential peptic ulcer disease she remains on a PPI along with Carafate. For the cholecystitis she remains on meropenem antibiotic treatment with surgery closely following her. (3) Gallstones: Status: Acute Assessment and plan: As above (4) Anemia: Status: Chronic Assessment and plan: Her anemia has improved with transfusion. Hemoglobin stable will continue to monitor H&H. She will remain on Protonix and Carafate. (5) Alcohol abuse: Status: Chronic Assessment and plan: History of chronic alcohol abuse. However historically she has not ever gone into acute alcohol withdrawal. (6) Transaminitis: Status: Acute Assessment and plan: Improving with hydration and abstinence from alcohol (7) Depression: Status: Chronic Assessment and plan: Cont venlafaxine, buspar, mirtazapine (8) Hypomagnesemia: Status: Acute Assessment and plan: Replete and monitor repleting potassium also. (9) Palliative care patient: Assessment and plan: Dr. Young consulted on the patient and has gone over Leticia's code status with her and corrected her DNR/DNI status. Subjective Subjective Interval history since last seen: Patient sitting up eating her dinner states she is hungry but also states that she cannot finish it because she feels full and has some postprandial discomfort in her abdomen. No nausea or vomiting. I explained to the patient that she has evidence of cholecystitis with an abnormal HIDA scan and abnormal ultrasound. She understands this and she is already spoke with Dr. Wells who was discussed the risks and benefits of doing a laparoscopic cholecystectomy. Patient has increased risk of perioperative bleeding from her chronic liver disease. However Dr. Wells feels that her cirrhosis is well compensated and that her calculated meld score is 9 and her child Soler class is A. Present time Leticia would like to continue antibiotic treatment of her cholecystitis however she understands that her cholecystitis could progress and she could get septic from a gangrenous gallbladder. Dr. Wells will [place] visit tomorrow to discuss with her again the pros and cons of going to surgery versus continued antibiotic therapy Exam Narrative Exam Narrative: Julia is alert and very interactive appears to be in no distress. She ate over half of her dinner. Lungs are clear to auscultation Heart is regular rate and rhythm Abdomen is soft nondistended but she does have some continued epigastric and now right and left upper quadrant abdominal tenderness without guarding or rebound tenderness. Objective Last Vital Signs Temp 36.8 C 05/17/22 16:02 Pulse 71 05/17/22 16:02 Resp 18 05/17/22 16:02 BP 148/80 H 05/17/22 16:02 Pulse Ox 96 05/17/22 16:02 Laboratory Results - last 24 hr 05/17/22 05/17/22 06:35 06:35 WBC 2.79 L RBC 4.42 Hgb 11.4 Hct 37.8 MCV 86 MCH 25.8 L MCHC 30.2 L RDW 20.0 H Plt Count MPV Immature Gran % 1.1 Neutrophils % 63.0 Lymphocytes % 24.4 Monocytes % 10.4 Eosinophils % 0.4 Basophils % 0.7 Nucleated RBC % 0.0 Absolute Neutrophils 1.76 Absolute Lymphocytes 0.68 L Absolute Monocytes 0.29 Absolute Eosinophils 0.01 Absolute Basophils 0.02 RBC Morphology See Below Polychromasia Present Hypochromasia 1+ Anisocytosis 2+ Sodium 137 Potassium 4.3 D Chloride 103 Carbon Dioxide 24.7 Anion Gap 9.3 BUN 11 Creatinine 0.9 Est GFR (CKD-EPI 2020) 66.26 Glucose 122 H Calcium 9.5 PAWSS Have you Been Recently Intoxicated or Drunk Within the Last 30 days?: Yes Have you Ever Experienced Previous Episodes of Alcohol Withdrawal?: No Have you ever Experienced Withdrawal Seizures?: No Have you ever Experienced Delirium Tremens(DT)s?: No Have you ever undergone Alcohol Rehabilitation Treatment (i.e, inpt ot outpatient treatment programs)?: No Have you ever Experienced Blackouts?: No Have you ever Combined Alcohol with other Downers within the last 90 days?: No Have you ever Combined Alcohol with any other Substance of Abuse during the last 90 days?: No Evidence of Increased Autonomic Activity (i.e. HR>120, tremor, sweating, agitation, nausea)?: No Result: 1
--- NOTE | 2022-05-17 17:44 | CMPROGNOTE_ITS ---
- If Service Date Differs Date of service: 05/17/22 Time of Service: 17:44 Care Management Progress Note S/O: CM attempted to visit Leticia today, but she was out of her room, having a HIDA scan. Per report, the scan was suspicious for cholecystitis. She discussed surgery vs continue antibiotics with the surgeon today, and at this time, has opted for non surgical intervention. If her pain increases, she reports that she would reconsider surgery. Her diet has been advanced, although she was NPO for her scan today. She is not yet medically cleared for discharge. CM will continue to follow. A: Leticia is a 77 year old female admitted to [facility] on 05/13/22 for pancreatitis. P: Leticia will return home once medically cleared. She will be driven home via [facility] private vehicle when ready, coordinated by CM. She will follow up with her PCP and discharge plan of care. CM will continue to follow.
[2022-05-17] MEDS: Ursodiol 300 MG CAP PO (20:26)
[2022-05-17] MEDS: QUEtiapine 25 MG TAB 12.5 MG PO (20:26)
[2022-05-17] MEDS: busPIRone 5 MG TAB PO (20:26)
[2022-05-17] MEDS: Pantoprazole 40 MG TABCR PO (20:26)
[2022-05-17] MEDS: LORazepam 0.5 MG TAB PO (20:34)
[2022-05-17] MEDS: Mirtazapine 15 MG TAB PO (20:34)
[2022-05-17] MEDS: Melatonin 3 MG TAB 9 MG PO (20:49)
[2022-05-17 23:30] VITALS: BP 175/80; PULSE 85; RESP 18; TEMP 36.9; O2SAT 97
[2022-05-18 07:26] LABS: ALT 42 U/L (14-59); AST 34 U/L (15-37); Alkaline Phosphatase 101 U/L (46-116); Anion Gap 6.3 mmol/L (3-11); BUN 14 mg/dL (7-18); Bilirubin, Direct 0.3 mg/dL (0.0-0.2); Bilirubin, Total 1.2 mg/dL (0.2-1.0); C-Reactive Protein 0.24 mg/dL (0.0-0.3); CO2 25.7 mmol/L (21.0-32.0); CREATININE 0.9 mg/dL (0.55-1.02); Calcium 9.9 mg/dL (8.5-10.1); Chloride 103 mmol/L (98-107); Estimated GFR 66.26 (mL/min/1.73m2); Glucose 126 mg/dL (74-106); INR 1.1 (0.9-1.1); Potassium 3.7 mmol/L (3.5-5.1); Sodium 135 mmol/L (136-145); Total Protein 6.5 g/dL (6.4-8.2)
[2022-05-18 08:26] VITALS: BP 163/91; PULSE 111; RESP 20; TEMP 37.4; O2SAT 97
[2022-05-18] MEDS: Refresh PLUS Eye Drops 0.4ml OU ×4 (09:03→21:17)
[2022-05-18] MEDS: Ursodiol 300 MG CAP PO ×2 (09:03→21:16)
[2022-05-18] MEDS: valACYclovir 500 MG TAB PO (09:03)
[2022-05-18] MEDS: Pantoprazole 40 MG TABCR PO ×2 (09:04→21:16)
[2022-05-18] MEDS: Venlafaxine 75 MG CAPCR PO (09:04)
[2022-05-18] MEDS: busPIRone 5 MG TAB PO ×2 (09:04→21:16)
[2022-05-18] MEDS: Folic Acid 1 MG TAB PO (09:04)
[2022-05-18] MEDS: Sucralfate 1 GM TAB PO ×4 (09:04→21:16)
[2022-05-18] MEDS: QUEtiapine 25 MG TAB 12.5 MG PO ×2 (09:05→21:17)
[2022-05-18] MEDS: amLODIPine 10 MG TAB PO (09:05)
[2022-05-18] MEDS: Metoprolol 50 MG TAB PO (09:05)
[2022-05-18] MEDS: Thiamine 100 MG TAB PO (09:05)
[2022-05-18] MEDS: MEROPENEM 1 GM in Normal Saline 100 ML IVPB ×2 (09:06→21:17)
[2022-05-18] MEDS: Normal Saline Flush 10 ML SYR IVP ×2 (09:06→16:31)
[2022-05-18] MEDS: Albuterol 2.5 MG/3 ML INH SOLN VIAL UPD (09:30)
[2022-05-18] MEDS: Budesonide 0.5 MG/2 ML UPD VIAL IH (09:31)
[2022-05-18 09:41] VITALS: PULSE 94; RESP 1; RESP 20; RESP 4; RESP 8; O2SAT 98
--- NOTE | 2022-05-18 12:35 | W.PM.PROGNOT ---
Date of Service Date of service: 05/18/22 Time of Service: 12:35 Assessment and Plan Assessment and plan (1) Acute cholecystitis: Status: Acute Assessment and plan: The alternatives to surgery, risks, complications, and the possible need to convert to open cholecystectomy were discussed. Also bleeding, infection, pneumonia, blood clots, complications of anesthesia, damage to bowel, bladder, blood vessels, or bile ducts, liver, need for blood transfusions. Also: chronic pain, chronic diarrhea, reoccurrence of signs and symptoms, port site hernias, adhesions. All questions were answered and the patient elected to proceed with surgery (2) 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 ascites: Status: Acute Assessment and plan: chronic (3) Thrombocytopenia: Status: Chronic Assessment and plan: -repeat labs in am. IF stable/improving will plan surgery, otherwise pt will need to wait until counts improve. cont pulm toilet -PPI Abx: Merrem (4) Epigastric abdominal pain: Status: Acute (5) Gallstones: Status: Acute (6) Urge incontinence: Status: Acute (7) Alcohol withdrawal delirium, acute, hypoactive: Status: Ruled-out Assessment and plan: resolved (8) Pancreatitis: Status: Chronic Assessment and plan: resolved Qualifiers: Acute pancreatitis complication: no infection or necrosis Chronicity: acute Pancreatitis type: alcohol induced Qualified Code(s): K85.20 - Alcohol induced acute pancreatitis without necrosis or infection (9) T12 compression fracture: Status: Acute (10) Pancreatitis, alcoholic, acute: (11) Elev transaminase/LDH: Status: Acute (12) Hypertension: Status: Chronic Qualifiers: Hypertension type: essential hypertension Qualified Code(s): I10 - Essential (primary) hypertension (13) Nodule of upper lobe of right lung: Status: Acute (14) Umbilical hernia: Status: Acute Subjective Subjective Interval history since last seen: Pt states she had x6 attacks of pain today. THey are in both in LUQ & RUQ and radiate to back. This was after she ate butter. She is currently eating pork. No N/v. no headaches. No CP or SOB. no productive cough. no dysuria. no leg pain or swelling. She had multiple BM. PT states her previous abdominal surgery's were a bladder suspension and a tubal. She does have an umbilical hernia. SHe lives home alone. She uses a walker. It is questionable if she anyone at home to help her out after surgery. Exam Resp Effort & Inspection: normal respiratory effort and able to speak in complete sentences Auscultation: clear to auscultation bilaterally Cardio Rate: regular rate Rhythm: regular rhythm GI Other: mild distention. +umbilical hernia +BS. no pain today. Extrem General: no clubbing, cyanosis or edema Objective Last Vital Signs Temp 37.4 C 05/18/22 08:26 Pulse 94 H 05/18/22 09:41 Resp 20 05/18/22 09:41 BP 163/91 H 05/18/22 08:26 Pulse Ox 98 05/18/22 09:41 Laboratory Results - last 24 hr 05/18/22 05/18/22 06:38 06:38 PT 11.0 INR 1.1 Sodium 135 L Potassium 3.7 Chloride 103 Carbon Dioxide 25.7 Anion Gap 6.3 BUN 14 Creatinine 0.9 Est GFR (CKD-EPI 2020) 66.26 Glucose 126 H Calcium 9.9 Total Bilirubin 1.2 H Conjugated Bilirubin 0.3 H AST 34 ALT 42 Alkaline Phosphatase 101 C-Reactive Protein 0.24 Total Protein 6.5 Albumin 3.0 L PAWSS Have you Been Recently Intoxicated or Drunk Within the Last 30 days?: Yes Have you Ever Experienced Previous Episodes of Alcohol Withdrawal?: No Have you ever Experienced Withdrawal Seizures?: No Have you ever Experienced Delirium Tremens(DT)s?: No Have you ever undergone Alcohol Rehabilitation Treatment (i.e, inpt ot outpatient treatment programs)?: No Have you ever Experienced Blackouts?: No Have you ever Combined Alcohol with other Downers within the last 90 days?: No Have you ever Combined Alcohol with any other Substance of Abuse during the last 90 days?: No Evidence of Increased Autonomic Activity (i.e. HR>120, tremor, sweating, agitation, nausea)?: No Result: 1
--- NOTE | 2022-05-18 12:58 | PDOC.CMPRO ---
- If Service Date Differs Date of service: 05/18/22 Time of Service: 12:58 Care Management Progress Note S/O: Leticia was lying in bed when CM met with her today. She stated that she had six pain attacks today, and they were severe. She reported that per MD, she would go to surgery tomorrow, which she is agreeable to. CM discussed her discharge plan after surgery, as she may benefit from a short term rehab stay, but she stated that she would prefer to return home. CM will continue to follow. A: Leticia is a 77 year old female admitted to [facility] on 05/13/22 for pancreatitis. P: Leticia will return home once medically cleared. She will be driven home via [facility] private vehicle when ready, coordinated by CM. She will follow up with her PCP and discharge plan of care. CM will continue to follow.
--- NOTE | 2022-05-18 15:37 | CHAPLAIN ---
Leticia is resting in bed watching tv when I visit. She tells me that she is schedule to have surgery to remove her gallbladder tomorrow, she doesn't know what time. She has had six attacks of sharp pain today, and hopes removing her gallbladder will cure that. Leticia said she knows the surgery is routine, but she is worried because of her age. You don't know what will happen at 77, she tells me. Leticia is well known to staff because of previous admissions. She is concerned about her four cats and a dog at home. Her sister is caring for them, she said. Leticia said doesn't know what time the surgery will be. Things are always a surprise around here, she said. She was happy to see the staff person from the kitchen who takes her order. I will continue to visit.
[2022-05-18 15:53] VITALS: BP 130/77; PULSE 76; RESP 18; TEMP 36.4; O2SAT 98
--- NOTE | 2022-05-18 19:32 | W.PM.PROGNOT ---
Date of Service Date of service: 05/18/22 Time of Service: 17:45 Assessment and Plan Assessment and plan (1) Acute cholecystitis: Status: Acute Assessment and plan: Continue meropenem. NPO for cholecystectomy tomorrow. (2) Epigastric abdominal pain: Status: Acute Assessment and plan: Possible one or a combination of peptic ulcer disease, alcoholic gastritis, cholecystitis. Continue PPI, carafate. For a probable cholecystectomy tomorrow. (3) Anemia: Status: Chronic Assessment and plan: S/p transfusion of 2 units of pRBCs on this admission. CBC is being rechecked tomorrow. Will check anemia studies. Continue Protonix and Carafate. (4) Alcohol abuse: Status: Chronic Assessment and plan: Does not appear to be having acute withdrawal at this time. Continue thiamine, MVI. (5) Transaminitis: Status: Acute Assessment and plan: In setting of suspected cholecystitis and well as EtOH abuse. Improving. Continue to mointor. (6) Depression: Status: Chronic Assessment and plan: Continue venlafaxine, buspar, mirtazapine (7) Hypomagnesemia: Status: Acute Assessment and plan: Recheck in am (8) DVT prophylaxis: Status: Acute Assessment and plan: SCDs Holding chemical DVT ppx in light of GI bleeding (9) Discharge planning issues: Status: Acute Assessment and plan: DNR/DNI Continues to require hospitalization Subjective Subjective Interval history since last seen: Leticia states that her abdomen felt horrible this morning, pointing to LUQ, but that it feels fine now. She has tolerated dinner. She still says her RUQ hurts when I press on it. Denies dizziness, chest pain, shortness of breath, nausea. Says she is agreeable to surgery. Exam Narrative Exam Narrative: General: Pleasant elderly female, A&Ox3, at her baseline mental status, does not appear ill HEENT: EOMI, MMM Heart: RRR, +KIRTI Lungs: CTAB Abdomen: soft, tender in RUQ Extremities: no edema BLEs Objective Last Vital Signs Temp 36.4 C L 05/18/22 15:53 Pulse 76 05/18/22 15:53 Resp 18 05/18/22 15:53 BP 130/77 05/18/22 15:53 Pulse Ox 98 09/20/22 15:53 Laboratory Results - last 24 hr 05/18/22 05/18/22 06:38 06:38 PT 11.0 INR 1.1 Sodium 135 L Potassium 3.7 Chloride 103 Carbon Dioxide 25.7 Anion Gap 6.3 BUN 14 Creatinine 0.9 Est GFR (CKD-EPI 2020) 66.26 Glucose 126 H Calcium 9.9 Total Bilirubin 1.2 H Conjugated Bilirubin 0.3 H AST 34 ALT 42 Alkaline Phosphatase 101 C-Reactive Protein 0.24 Total Protein 6.5 Albumin 3.0 L PAWSS Have you Been Recently Intoxicated or Drunk Within the Last 30 days?: Yes Have you Ever Experienced Previous Episodes of Alcohol Withdrawal?: No Have you ever Experienced Withdrawal Seizures?: No Have you ever Experienced Delirium Tremens(DT)s?: No Have you ever undergone Alcohol Rehabilitation Treatment (i.e, inpt ot outpatient treatment programs)?: No Have you ever Experienced Blackouts?: No Have you ever Combined Alcohol with other Downers within the last 90 days?: No Have you ever Combined Alcohol with any other Substance of Abuse during the last 90 days?: No Evidence of Increased Autonomic Activity (i.e. HR>120, tremor, sweating, agitation, nausea)?: No Result: 1
[2022-05-18] MEDS: LORazepam 0.5 MG TAB PO (21:16)
[2022-05-18] MEDS: Melatonin 3 MG TAB 9 MG PO (21:16)
[2022-05-18] MEDS: Mirtazapine 15 MG TAB PO (21:16)
[2022-05-18 23:09] VITALS: BP 133/77; PULSE 75; RESP 18; TEMP 36.7; O2SAT 98
[2022-05-19] VITALS (14 sets, daily range): BP systolic 129–156; BP diastolic 34–85; PULSE 67–100; RESP 1–24; TEMP 35.6–36.6; O2SAT 93–100; BMI 21.9
--- NOTE | 2022-05-19 06:53 | ROE_ITS ---
Date of service: 05/19/22 Time of Service: 13:51 Operative Note Operative Note DATE OF PROCEDURE: 05/19/22 PRE-OP DIAGNOSIS: Acute Cholecystitis, alcoholic cirrhosis POST-OP DIAGNOSIS: same PROCEDURE: Laparoscopic Cholecystectomy SURGEON: Diandra Wells GUEST RELATION OFFICER: Margaret Fleming ANESTHESIA TYPE: General LMA/ETT Refer to Anesthesia Record ESTIMATED BLOOD LOSS: 50 PATHOLOGY: other (Gallbladder) COMPLICATIONS: None Patient was transported to: PACU Patient's condition: stable Indications: The alternatives to surgery, risks, complications, and the possible need to convert to open cholecystectomy were discussed. Also bleeding, infection, pneumonia, blood clots, complications of anesthesia, damage to bowel, bladder, blood vessels, or bile ducts, liver, need for blood transfusions. Also: chronic pain, chronic diarrhea, reoccurrence of signs and symptoms, port site hernias, adhesions. All questions were answered and the patient elected to proceed with surgery Findings: Normal looking Gallbladder. Cirrhotic liver Procedure Description: After informed consent was obtained the patient was brought to the operating room, placed in a supine position and monitors were applied. SCDs were applied to her lower extremities and she was placed under general anesthesia and intubated without difficulty. Her abdomen was then prepped and draped in a sterile fashion using ChloraPrep. At this point a timeout was done and the patient's name, date of , procedure type, allergies to medications, metal in her body, antibiotic and DVT prophylaxis, and fire risk was assessed. Next 0.25% Bupivocaine was injected just above the umbilicus into the dermis and subcutaneous tissue. A 5 mm incision was made with an 11 blade. The skin next to the incision was grasped with penetrating towel clamps and while pulling up on the skin a 5 mm port was placed under direct visualization. The abdomen was insuflated and then 3 more ports were placed. A 12 mm port was placed in the subxiphoid area and two 5 mm ports were placed in the right upper quadrant. The liver was inspected and looked cirrhotic. The patient's bed was then turned to the left and her head was brought up. Part of the Transverse colon was adhered to the liver and gallbladder. The adhesions were carefully taken down with cuatery. The gallbladder was grasped at the body and pushed towards the right shoulder, this allowed me to visualize the neck of the gallbladder. The neck was grasped and pulled towards the right flank and down allowing me to visualize the lymph node. Using a [place] dissector with cautery the lymph node was gently dissected away from the tissues and the fatty tissue was also dissected away. The light was changed to see the Dye that was given by anesthesia. The duct didnt light up. The liver lit up. The cystic duct was iden tified it was normal in size. The duct was dissected 360 degrees using the [place] dissector in order for me to visualize its entrance into the gallbladder. Liver was noted behind it. There were no other structures right behind. Critical view was achieved. 3 clips were placed one proximal and 2 distal and the cystic duct was cut. The cystic artery was then identified and dissected 360 degrees. It was located just medial to the cystic duct. It was visualized going into the gallbladder. The clip on the Gallbladder side of the cystic duct came off and I had some spill of sludge. The sludge was succtioned. Once dissected 3 more clips were placed one proximal and 2 distal and the artery was cut. Using the hook dissector the gallbladder was then dissected away from the liver bed and placed into an Endo Catch bag and pulled through the 12 mm port site. The 12 mm port was placed back into the abdomen under direct visualization. The liver bed was inspected , and there was a small amount of bleeding was noted. A piece of surgicell was placed onto the liver. It was left for 1 minute. The surgicell was removed. No more bleeding was noted. The abdomen was then irrigated with a 1.5 L of normal saline until the effluent was clear. Once all the fluid was suctioned out, the 12 mm and the 2 right upper quadrant ports were removed under direct visualization and no bleeding was noted from the fascia. The abdomen was deflated completely and lastly the umbilical port was removed. The skin was cleaned and the incisions were closed with 4-0 Vicryl. The skin was dried and skin affix was applied over the closed incisions. Needle, instrument and sponge counts were correct at the end of the case. At this point the patient was woken up, extubated and taken back to recovery in stable condition. There were no immediate complications.
[2022-05-19] MEDS: Budesonide 0.5 MG/2 ML UPD VIAL IH (07:35)
[2022-05-19] MEDS: Albuterol/Ipratropium 3 ML UPD VIAL UPD (07:35)
[2022-05-19 07:36] LABS: Abs Immature Grans 0.02 10^3/uL (0.0-0.06); Absolute Basophil Count 0.01 10^3/uL (0.0-0.2); Absolute Monocyte Count 0.45 10^3/uL (0.1-0.8); Absolute Neutrophil Count 1.35 10^3/uL (1.2-6.7); Basophils % 0.4; HCT 34.3 % (36.0-46.0); HGB 10.7 g/dL (11.2-15.7); Immature Grans % 0.8; Lymphocytes % 27.7; MCH 26.1 pg (27.0-33.0); MCHC 31.2 % (32.0-36.0); MCV 84 fL (80-95); MPV 9.3 fL (8.0-11.0); Monocytes % 17.8; Neutrophils % 53.3; Platelet Count 112 10^3/uL (130-400); RDW 19.9 % (11.7-14.6); RDW-SD 59.8 fL; WBC 2.53 10^3/uL (4.4-10.8)
[2022-05-19 07:52] LABS: Iron 34 ug/dL (50-170); Total Iron Binding Capacity 290 ug/dL (250-450); Transferrin Sat 12 % (15-50)
[2022-05-19] MEDS: Acetaminophen 325 MG TAB PO (07:54)
[2022-05-19] MEDS: busPIRone 5 MG TAB PO ×2 (07:55→19:28)
[2022-05-19] MEDS: amLODIPine 10 MG TAB PO (07:55)
[2022-05-19] MEDS: Pantoprazole 40 MG TABCR PO ×2 (07:55→19:28)
[2022-05-19] MEDS: Metoprolol 50 MG TAB PO (07:55)
[2022-05-19 07:56] LABS: ALT 39 U/L (14-59); AST 33 U/L (15-37); Albumin 3.1 g/dL (3.4-5.0); Alkaline Phosphatase 107 U/L (46-116); Anion Gap 11.3 mmol/L (3-11); BUN 18 mg/dL (7-18); Bilirubin, Direct 0.2 mg/dL (0.0-0.2); Bilirubin, Total 0.8 mg/dL (0.2-1.0); CO2 22.7 mmol/L (21.0-32.0); CREATININE 0.9 mg/dL (0.55-1.02); Calcium 9.8 mg/dL (8.5-10.1); Chloride 104 mmol/L (98-107); Estimated GFR 66.26 (mL/min/1.73m2); Glucose 131 mg/dL (74-106); Magnesium 1.5 mg/dL (1.8-2.4); Potassium 3.5 mmol/L (3.5-5.1); Sodium 138 mmol/L (136-145); Total Protein 6.7 g/dL (6.4-8.2)
[2022-05-19] MEDS: QUEtiapine 25 MG TAB 12.5 MG PO ×2 (07:56→19:29)
[2022-05-19] MEDS: Venlafaxine 75 MG CAPCR PO (07:56)
[2022-05-19] MEDS: Ursodiol 300 MG CAP PO ×2 (07:57→19:28)
[2022-05-19] MEDS: MEROPENEM 1 GM in Normal Saline 100 ML IVPB ×2 (07:58→19:33)
[2022-05-19] MEDS: Normal Saline Flush 10 ML SYR IVP ×3 (07:58→18:10)
[2022-05-19] MEDS: Refresh PLUS Eye Drops 0.4ml OU ×3 (07:58→19:28)
[2022-05-19] MEDS: valACYclovir 500 MG TAB PO (07:58)
[2022-05-19 08:00] LABS: Prothrombin Time 10.4 sec (9.3-11.0)
[2022-05-19 08:18] LABS: Vitamin B12 242 pg/mL (193-986)
[2022-05-19 08:19] LABS: Folate > 20.0 ng/mL (8.6-20.0)
[2022-05-19 08:29] LABS: Ferritin 45 ng/mL (8-252)
[2022-05-19] MEDS: Lactated Ringers 1,000 ML 100 ML IV (09:43)
[2022-05-19] MEDS: MAGNESIUM SULFATE 2 GM/50 ML BAG IVPB ×2 (09:43→18:10)
--- NOTE | 2022-05-19 11:22 | W.ANESPRE ---
General Info Date of Service Date Performed: 05/19/22 Height: 5 ft 5 in Weight: 59.7 kg Body Mass Index (BMI): 21.9 Surgical Procedure: Operation Date: 05/19/22 13:10 Proposed Procedure Side Surgeon p Cholecystectomy Laparoscopic Diandra Wells MD Meds Allergies and Home Medications Allergies Allergy/AdvReac Type Severity Reaction Status Date / Time Penicillins Allergy Mild Rash Verified 05/13/22 03:56 ramipril Allergy Unknown ITCHING Verified 05/13/22 03:56 meperidine [From Demerol] AdvReac Severe Nausea Verified 05/13/22 03:56 bupropion AdvReac Mild GI upset Verified 05/13/22 03:56 AMBER Inhibitors AdvReac Unknown COUGH Verified 05/13/22 03:56 alendronate sodium AdvReac Unknown GI Distress Verified 05/13/22 03:56 clarithromycin AdvReac Unknown intolerant Verified 05/13/22 03:56 paroxetine AdvReac Unknown Diarrhea Verified 05/13/22 03:56 Home Medication Medication Instructions Recorded carboxymethylcellulose sodium 0.5 1 drp OU Q4H WHILE AWAKE #30 ea 06/20/19 % eye drops in a dropperette (Refresh Plus) lifitegrast 5 % eye drops in a 1 drp ophthalmic (eye) BID 08/05/20 dropperette (Xiidra) multivitamin (Multiple Vitamins 1 tab PO DAILY #90 tabs 09/05/20 tablet) venlafaxine 75 mg capsule,extended 75 mg PO DAILY #90 caps 08/05/21 release 24 hr ipratropium 0.5 mg-albuterol 3 mg 3 ml inhalation Q6H PRN 12/25/21 (2.5 mg base)/3 mL nebulization soln quetiapine 25 mg tablet See Rx Instructions PO BID #30 tabs 12/29/21 albuterol sulfate 90 mcg/actuation 2 puff inhalation QID PRN 02/08/22 aerosol inhaler (Ventolin HFA) shortness of breath or wheezing #8.5 grams amlodipine 10 mg tablet 10 mg PO DAILY #90 tabs 02/08/22 buspirone 5 mg tablet 5 mg PO BID #60 tabs 02/08/22 folic acid 1 mg tablet 1 mg PO DAILY #90 tabs 02/08/22 melatonin 3 mg capsule 6 mg PO HS #180 caps 02/08/22 metoprolol tartrate 50 mg tablet 50 mg PO DAILY #90 tabs 02/08/22 mirtazapine 7.5 mg tablet 7.5 mg PO QHS #90 tabs 02/08/22 ondansetron 4 mg disintegrating 4 mg PO Q8H PRN nausea and 02/08/22 tablet vomiting #20 tabs pantoprazole 40 mg tablet,delayed 40 mg PO DAILY #90 tabs 02/08/22 release sucralfate 1 gram tablet 1 g PO BID #60 tabs 02/08/22 thiamine HCl (vitamin B1) 100 mg 100 mg PO DAILY #90 tabs 02/08/22 tablet valacyclovir 500 mg tablet 500 mg PO DAILY #90 tabs 02/08/22 (Valtrex) fluticasone propionate 50 2 spray NS daily prn #16 grams 03/06/22 mcg/actuation nasal spray,suspension budesonide 0.5 mg/2 mL suspension 0.5 mg (2 mL) inhalation DAILY #60 05/06/22 for nebulization (Pulmicort) mL melatonin 3 mg capsule 3 mg PO .pm PRN sleep #90 caps 05/12/22 Current Visit Medications: Current Medications Generic Name Dose Route Start Last Admin Trade Name Freq PRN Reason Stop Dose Admin Acetaminophen 325 - 650 mg 05/13/22 03:20 05/19/22 07:54 Acetaminophen 325 Mg Tab PO 650 mg Q4H PRN PRN Administration Albuterol Sulfate 2.5 mg 05/13/22 03:20 05/18/22 09:30 Albuterol 2.5 Mg/3 Ml Inh Soln Vial UPD 2.5 mg Q2H PRN PRN Administration Albuterol/Ipratropium 3 ml 05/13/22 03:20 05/19/22 07:35 Albuterol/Ipratropium 3 Ml Upd Vial UPD 3 ml Q6H PRN PRN Administration Amlodipine Besylate 10 mg 05/13/22 08:30 05/19/22 07:55 Amlodipine 10 Mg Tab PO 10 mg DAILY AMALIA Administration Budesonide 0.5 mg 05/13/22 08:30 05/19/22 07:35 Budesonide 0.5 Mg/2 Ml Upd Vial IH 0.5 mg DAILY AMALIA Administration Buspirone HCl 5 mg 05/13/22 08:30 05/19/22 07:55 Buspirone 5 Mg Tab PO 5 mg BID AMALIA Administration Carboxymethylcellulose Sodium 0 each 05/13/22 08:00 05/19/22 07:58 Refresh Plus Eye Drops 0.4ml OU 1 drp Q4H WHILE AWAKE AMALIA Administration Dimethicone/Zinc Oxide 0 gm 05/13/22 03:15 Pelon Protect Cream 142 Gm Tube TP PRN PRN Fluticasone Propionate 0 gm 05/13/22 04:00 Fluticasone Nasal [place] 16 Gm Btl NS daily prn PRN Folic Acid 1 mg 05/13/22 08:30 05/19/22 10:58 Folic Acid 1 Mg Tab PO Not Given DAILY AMALIA Hydromorphone HCl 0.5 mg 05/13/22 03:50 Hydromorphone 2 Mg/Ml Syr IVP Q4H PRN PRN Meropenem 1 gm/ Sodium 100 mls @ 200 mls/hr 05/16/22 20:00 05/19/22 09:00 Chloride IVPB Infused Q12H AMALIA Infusion Protocol Ringer's Solution 1,000 mls @ 100 mls/hr 05/19/22 09:00 05/19/22 09:43 IV 05/19/22 18:59 100 mls/hr INFUSION AMALIA Administration IV Miscellaneous Supplies 1 each 05/12/22 23:00 Iv Access IV DIRECTED AMALIA Lorazepam 0.5 mg 05/17/22 17:41 05/18/22 21:16 Lorazepam 0.5 Mg Tab PO 0.5 mg HS PRN PRN Administration sleep Magnesium Hydroxide 30 ml 05/13/22 03:20 Milk Of Magnesia 30 Ml Cup PO DAILY PRN PRN Melatonin 9 mg 05/17/22 22:00 05/18/22 21:16 Melatonin 3 Mg Tab PO 9 mg HS AMALIA Administration Metoprolol Tartrate 50 mg 05/13/22 08:30 05/19/22 07:55 Metoprolol 50 Mg Tab PO 50 mg DAILY AMALIA Administration Mirtazapine 15 mg 05/15/22 22:00 05/18/22 21:16 Mirtazapine 15 Mg Tab PO 15 mg HS AMALIA Administration Pantoprazole Sodium 40 mg 05/17/22 20:00 05/19/22 07:55 Pantoprazole 40 Mg Tabcr PO 40 mg BID@0730,2000 AMALIA Administration Patient's Own 1 each 05/13/22 08:30 05/19/22 07:56 Medication (Xiidra 5 OP Not Given % Eye Drops) BID AMALIA Polyethylene Glycol 17 gm 05/13/22 03:20 Polyethylene Glycol 3350 17 Gm Packet PO DAILY PRN PRN Constipation Prochlorperazine Edisylate 10 mg 05/13/22 03:32 05/17/22 08:45 Prochlorperazine 10 Mg/2 Ml Vial IVP 10 mg Q4H PRN PRN Administration Quetiapine Fumarate 12.5 mg 05/13/22 08:30 05/19/22 07:56 Quetiapine 25 Mg Tab PO 12.5 mg BID AMALIA Administration Sodium Chloride 0 ml 05/12/22 22:58 05/19/22 09:43 Normal Saline Flush 10 Ml Syr IVP 10 ml PRN PRN Administration Sodium Chloride 50 ml 05/13/22 01:45 05/13/22 01:31 Normal Saline 250 Ml Bag IJ 250 ml DIRECTED AMALIA Administration Sucralfate 1 gm 05/13/22 07:30 05/19/22 07:56 Sucralfate 1 Gm Tab PO Not Given AC & HS [facility] Thiamine HCl 100 mg 05/13/22 08:30 05/19/22 10:58 Thiamine 100 Mg Tab PO Not Given DAILY [facility] Ursodiol 300 mg 05/14/22 08:30 05/19/22 07:57 Ursodiol 300 Mg Cap PO 300 mg BID AMALIA Administration Valacyclovir HCl 500 mg 05/16/22 08:30 05/19/22 07:58 Valacyclovir 500 Mg Tab PO 500 mg DAILY AMALIA Administration Venlafaxine HCl 75 mg 05/13/22 08:30 05/19/22 07:56 Venlafaxine 75 Mg Capcr PO 75 mg DAILY AMALIA Administration [facility] Active Problems Active Problems: Problem Status Onset Code Discharge planning issues Z02.9 DVT prophylaxis Z29.9 Umbilical hernia K42.9 Thrombocytopenia D69.6 Acute cholecystitis K81.0 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 ascites K70.30 Epigastric abdominal pain R10.13 Anemia D64.9 Advance care planning Z71.89 Gallstones K80.20 Hyperbilirubinemia E80.6 Severe nausea and vomiting R11.2 Hypomagnesemia E83.42 Alcohol withdrawal F10.939 Shortness of breath R06.02 Elevated blood pressure reading without diagnosis of hypertension R03.0 Left arm pain M79.602 Ambulatory dysfunction R26.2 Weakness R53.1 Incontinence R32 Urge incontinence N39.41 Anorexia R63.0 Headache R51.9 Onychomycosis B35.1 Depression F32.A Chest pain R07.9 Foot pain, right M79.671 Tendinitis of left rotator cuff M75.82 Macrocytosis 09/26/14 D75.89 Leukopenia D72.819 Headache R51 Epigastric abdominal pain R10.13 Elev transaminase/LDH R74.0 Calcific tendinitis of left shoulder M75.32 Pulmonary mass R91.8 Pneumonia J18.9 Nausea & vomiting R11.2 Depression with suicidal ideation F32.A, R45.851 Alcohol abuse F10.10 Diarrhea R19.7 Epigastric pain R10.13 Nausea and vomiting R11.2 Dehydration E86.0 Hypokalemia E87.6 Discharge planning issues Z02.9 Nausea and vomiting in adult R11.2 C. difficile colitis A04.72 Palliative care patient Z51.5 Alcohol intoxication F10.929 Dehydration E86.0 Vomiting R11.10 Difficult intravenous access Z78.9 Pancreatitis K85.90 PTSD (post-traumatic stress disorder) F43.10 Anemia D64.9 Depression F32.9 Foot pain, right M79.671 T12 compression fracture S22.080A Presacral mass R19.09 Deviated nasal septum J34.2 Frequent falls R29.6 Head injury S09.90XA Transaminitis R74.01 Ambulatory dysfunction R26.2 Shoulder pain, right M25.511 DVT prophylaxis Z29.9 Suicidal ideation R45.851 Alcohol intoxication F10.929 Dry eye H04.129 Pruritus L29.9 Dystrophic nail L60.3 AMBER (acute kidney injury) N17.9 Iron deficiency anemia D50.9 Alcohol abuse F10.10 Hypomagnesemia E83.42 Discharge planning issues Z02.9 UTI (urinary tract infection) N39.0 Fall W19.XXXA Atelectasis of left lung J98.11 Advance directive on file Z78.9 Nodule of upper lobe of right lung ~09/13/18 R91.1 Cataract 11/07/15 H26.9 Hypertension I10 Hyperlipidemia E78.5 Back pain, chronic M54.9, G89.29 Depression F32.9 Osteopenia M85.80 Medical History Medical History (Updated 05/18/22 @ 19:36 by Laly Dumont MD) Adjustment disorder with depressed mood Alcoholic ketosis Anemia Cervical radicular pain neck pain and DJD [facility] 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) pls refrain from alcohol Chronic alcoholism she will not stop drinking unless she checks with me, so that we can help her avert withdrawal I do not think she is capable on her own--she would need placement to achieve required goal of 3 months of sobriety Chronic diarrhea Closed right humeral fracture Corneal ulcer, right (~08/23/18) 08/23/18; [facility] Fracture of humerus, left, closed Genital herpes simplex recurrent gential; suppressive Valtrex GERD (gastroesophageal reflux disease) GI bleed (12/20/16) Hypertension Hypokalemia Hypomagnesemia Incidental lung nodule, greater than or equal to 8mm 1cm, spiculated, stable for many years, recommend f/u in 6 mo Multiple rib fractures 03/11/19 [facility] Non-cardiac chest pain (09/21/16) [facility] [place] 09/21/16 NEGATIVE MP Osteoarthritis Palliative care patient (03/21/17) Pancreatitis, alcoholic, acute Peripheral edema Photophobia of right eye Pleural effusion on left 03/11/19 [facility] Presacral mass (~09/15/18) 09/15/18 [facility] Sciatica right, epidural injuections [facility] Tubular adenoma of colon (01/28/17) Urinary incontinence 01/24/13 urethral suspension and sling at [facility] [place] (bladder suspension 1991) Vision loss of right eye 08/17/18;[facility] Wernicke encephalopathy Surgical History Surgical History (Updated 05/17/22 @ 17:08 by Diandra Wells MD) Colonoscopy - MAC (01/28/17) EGD - MAC (12/20/16) History of bilateral ligation of fallopian tubes History of Surgical Procedure a. Bladder repair. Repair bladder injury, simple Tobacco Smoking/Tobacco Use Status: Former Tobacco Use Passive smoking exposure: Yes Alcohol Alcohol Intake: current Alcohol intake frequency: 3 or more drinks per day Alcohol type: hard liquor Substance Use Substance use: Never Substance use type: does not use Details: whiskey---last on Tuesday per pt Vital Signs and Lab Results Vital Signs Most Recent Vital Signs in EMR: Most Recent Vital Signs Temp Pulse Resp BP Pulse Ox 36.5 C 100 H 18 147/78 H 94 05/19/22 07:26 05/19/22 07:26 05/19/22 07:35 05/19/22 07:26 05/19/22 07:35 Lab Results Result Diagrams: 05/19/22 06:34 05/19/22 06:34 Blood Type / Crossmatch: Patient ABO/Rh A Negative 05/13/22 Antibody Screen NEGATIVE 05/13/22 Crossmatch See Detail 05/13/22 Complete Blood Count: White Blood Count 2.53 10^3/uL (4.4-10.8) L 05/19/22 06:34 Red Blood Count 4.10 10^6/uL (3.93-5.22) 05/19/22 06:34 Hemoglobin 10.7 g/dL (11.2-15.7) L 05/19/22 06:34 Hematocrit 34.3 % (36.0-46.0) L 05/19/22 06:34 Platelet Count 112 10^3/uL (130-400) L 05/19/22 06:34 Complete Metabolic Panel: Sodium Level 138 mmol/L (136-145) 05/19/22 06:34 Potassium Level 3.5 mmol/L (3.5-5.1) 05/19/22 06:34 Chloride Level 104 mmol/L (98-107) 05/19/22 06:34 Carbon Dioxide Level 22.7 mmol/L (21.0-32.0) 05/19/22 06:34 Blood Urea Nitrogen 18 mg/dL (7-18) 05/19/22 06:34 Creatinine 0.9 mg/dL (0.55-1.02) 05/19/22 06:34 Magnesium Level 1.5 mg/dL (1.8-2.4) L 05/19/22 06:34 Calcium Level 9.8 mg/dL (8.5-10.1) 05/19/22 06:34 Albumin 3.1 g/dL (3.4-5.0) L 05/19/22 06:34 Glucose Level 131 mg/dL (74-106) H 05/19/22 06:34 C-Reactive Protein 0.24 mg/dL (0.0-0.3) 05/18/22 06:38 Liver Function Panel: Alanine Aminotransferase (ALT/SGPT) 39 U/L (14-59) 05/19/22 06:34 Aspartate Amino Transf (AST/SGOT) 33 U/L (15-37) 05/19/22 06:34 Coagulation Panel: INR International Normalized Ratio 1.0 (0.9-1.1) 05/19/22 06:34 Prothrombin Time 10.4 sec (9.3-11.0) 05/19/22 06:34 Activated Partial Thromboplast Time 25.6 sec (21.0-27.5) 05/13/22 18:19 Cardiac Panel: Troponin I < 50 ng/L (<or=60) 05/13/22 Arterial Blood Gas: No Data to Display Venous Blood Gas: No Data to Display Pancreas Panel: Lipase 103 U/L (73-393) 05/15/22 16:45 Thyroid Panel: No Data to Display Infectious Disease: Coronavirus (COVID-19)(PCR) Negative (Negative) 05/13/22 00:33 Coronavirus 2019 Source Nasal/Nares 05/13/22 00:33 Blood Cultures: No Data to Display Toxicology Panel: Ethyl Alcohol Level < 3.0 mg/dL (<10) 05/12/22 23:12 Urine Amphetamines Screen Negative (Negative) 05/12/22 23:20 Urine Benzodiazepines Screen Negative (Negative) 05/12/22 23:20 Urine Barbiturates Screen Negative (Negative) 05/12/22 23:20 Urine Cocaine Screen Negative (Negative) 05/12/22 23:20 Urine Methadone Screen Negative (Negative) 05/12/22 23:20 Urine Opiates Screen Negative (Negative) 05/12/22 23:20 Ur Tricyclic Antidepressants Screen Negative (Negative) 05/12/22 23:20 Ur Tetrahydrocannabinol (THC) Scrn Negative (Negative) 05/12/22 23:20 Imaging and Studies Imaging and Studies Study information below may be from another EMR and interpreted by another provider. Please see original notes in EMR for more complete details. EKG Summary: Conclusion Sinus or ectopic atrial tachycardia...P axis (-45,135), rate> 99 Inferior infarct, old...Q >35mS, II III aVF I have reviewed and I agree with the emergency room physician's ECG interpretation. 05/12/22 Anesthesia Assessment and Plan Anesthesia History Personal History: No History of Anesthesia Complications Family History: No Family History of Anesthesia Complications Exercise Tolerance Exercise Tolerance: Metabolic Equivalents<4 Cardiac & Pulmonary Exam Cardiac Exam: Normal S1/S2 Heart Sounds Pulmonary Exam: Clear Bilateral Breath Sounds Implantable Cardiac Device Does patient have a Pacemaker or an ICD?: No Airway Exam Known Difficult Airway: No Mallampati Class: 3 Mouth Opening: Normal (> 3cm) Thyromental Distance: Greater than 3 cm Neck Range of Motion: Limited ROM and Known Cervical Instability or radiculopathy Neck Circumference: Normal Teeth Condition: Loose or Chipped (Loose permanent left upper bridge) ASA Classification ASA Score: ASA 3 Emergency Case?: No NPO Status NPO Status: NPO Clears >2 hours, Solids >8 hours Anesthesia Plan Resuscitation Status: DNR Fully Suspended During Perioperative Period Anesthesia Technique: General Anesthesia Airway Planned: Endotracheal Tube Monitors Used: Standard Monitors
[2022-05-19] MEDS: Indocyanine green 25 MG VIAL (13:08)
[2022-05-19] MEDS: Bupivacaine 0.25% Pres-Free 30 ML VIAL (13:08)
[2022-05-19] MEDS: Cellulose,Oxidized 4X8 1 PACKET MC (13:30)
--- NOTE | 2022-05-19 13:33 | GB_PTH ---
PATIENT: Leticia Felix LOC: U#:[id number] AGE/SX: 77/F ROOM: RE05/13/[address]: Rufino SERVIN, Aydin : 1945 BED: A DIS: 05/21/2022 SPEC #: [id number] RECD: 05/19/22 15:58 STATUS: LILLIANAHamilton REWillis #: [id number] RANDOLPH: 05/19/22 13:[address]: Aydin Joy DEPT: Surgical Specimen RECD BY: Monica Christie ENTERED: 05/19/22 15:58 SP TYPE: GB OTHR DR: Lavelle Galindo MD Tissues: 1 - GALLBLADDER Procedures: GROSS AND MICRO LEVEL 3 Comments: [id number]
[2022-05-19 16:41] LABS: Bilirubin Negative (Negative); Blood Negative (Negative); Clarity Clear (Clear); Glucose Negative (Negative); Ketones Negative (Negative); Leukocyte Esterase Negative (Negative); Nitrite Negative (Negative); Urobilinogen 0.2 EU/dL (Up TO 0.2)
--- NOTE | 2022-05-19 16:42 | CMPROGNOTE_ITS ---
- If Service Date Differs Date of service: 05/19/22 Time of Service: 16:42 Care Management Progress Note S/O: Julia went to the OR today. CM checked in on her after surgery, but she was sleeping at the time, and CM did not wake her. Per report, there were no complications from surgery. CM will continue to follow. A: Leticia is a 77 year old female admitted to [facility] on 05/13/22 for pancreatitis. P: Leticia will return home once medically cleared. She will be driven home via [facility] private vehicle when ready, coordinated by CM. She will follow up with her PCP and discharge plan of care. CM will continue to follow.
--- NOTE | 2022-05-19 17:37 | W.PM.PROGNOT ---
Date of Service Date of service: 05/19/22 Time of Service: 17:37 Assessment and Plan Assessment and plan (1) Acute cholecystitis: Status: Acute Assessment and plan: S/p cholecystectomy today. Continue meropenem. (2) Epigastric abdominal pain: Status: Acute Assessment and plan: Possible one or a combination of peptic ulcer disease, alcoholic gastritis, cholecystitis. Continue PPI, carafate. s/p cholecystectomy today. (3) Anemia: Status: Chronic Assessment and plan: S/p transfusion of 2 units of pRBCs on this admission. H/H stable. B12 and iron low - will replete. Will check anemia studies. Continue Protonix and Carafate. (4) Alcohol abuse: Status: Chronic Assessment and plan: Does not appear to be having acute withdrawal at this time. Continue thiamine, MVI. (5) Transaminitis: Status: Acute Assessment and plan: In setting of suspected cholecystitis and well as EtOH abuse. Improving. Continue to [facility]. (6) Depression: Status: Chronic Assessment and plan: Continue venlafaxine, buspar, mirtazapine (7) Hypomagnesemia: Status: Acute Assessment and plan: Replete and Recheck in am (8) DVT prophylaxis: Status: Acute Assessment and plan: SCDs Holding chemical DVT ppx in light of GI bleeding (9) Discharge planning issues: Status: Acute Assessment and plan: DNR/DNI Continues to require hospitalization Subjective Subjective Interval history since last seen: S/p cholecystectomy today. Feels nauseated. Feels RUQ and epigastric pain. Otherwise, denies CP, SOB, dizziness. Exam Narrative Exam Narrative: General: Pleasant elderly female, A&Ox3,looks tired and nauseated HEENT: EOMI, MMM Heart: RRR, +KIRTI Lungs: CTAB Abdomen: soft, tender in RUQ Extremities: no edema BLEs Objective Last Vital Signs Temp 36 C L 05/19/22 17:01 Pulse 81 05/19/22 17:01 Resp 16 05/19/22 17:01 BP 145/85 H 05/19/22 17:01 Pulse Ox 96 05/19/22 17:01 Laboratory Results - last 24 hr 05/19/22 05/19/22 05/19/22 06:34 06:34 06:34 WBC 2.53 L RBC 4.10 Hgb 10.7 L Hct 34.3 L MCV 84 MCH 26.1 L MCHC 31.2 L RDW 19.9 H Plt Count 112 L MPV 9.3 Immature Gran % 0.8 Neutrophils % 53.3 Lymphocytes % 27.7 Monocytes % 17.8 Eosinophils % 0.0 Basophils % 0.4 Nucleated RBC % 0.0 Absolute Neutrophils 1.35 Absolute Lymphocytes 0.70 L Absolute Monocytes 0.45 Absolute Eosinophils 0.00 Absolute Basophils 0.01 PT 10.4 INR 1.0 Sodium 138 Potassium 3.5 Chloride 104 Carbon Dioxide 22.7 Anion Gap 11.3 H BUN 18 Creatinine 0.9 Est GFR (CKD-EPI 2020) 66.26 Glucose 131 H Calcium 9.8 Magnesium 1.5 L Iron TIBC Transferrin % Sat Ferritin 45 Total Bilirubin 0.8 Conjugated Bilirubin 0.2 AST 33 ALT 39 Alkaline Phosphatase 107 Total Protein 6.7 Albumin 3.1 L Vitamin B12 Folate Urine Color Urine Clarity Urine pH Ur Specific [place] Urine Protein Urine Ketones Urine Blood Urine Nitrite Urine Bilirubin Urine Urobilinogen Ur Leukocyte Esterase Urine Glucose 05/19/22 05/19/22 05/19/22 06:34 06:34 16:17 WBC RBC Hgb Hct MCV MCH MCHC RDW Plt Count MPV Immature Gran % Neutrophils % Lymphocytes % Monocytes % Eosinophils % Basophils % Nucleated RBC % Absolute Neutrophils Absolute Lymphocytes Absolute Monocytes Absolute Eosinophils Absolute Basophils PT INR Sodium Potassium Chloride Carbon Dioxide Anion Gap BUN Creatinine Est GFR (CKD-EPI 2020) Glucose Calcium Magnesium Iron 34 L TIBC 290 Transferrin % Sat 12 L Ferritin Total Bilirubin Conjugated Bilirubin AST ALT Alkaline Phosphatase Total Protein Albumin Vitamin B12 242 Folate > 20.0 H Urine Color Yellow Urine Clarity Clear Urine pH 6.0 Ur Specific [place] 1.020 Urine Protein Negative Urine Ketones Negative Urine Blood Negative Urine Nitrite Negative Urine Bilirubin Negative Urine Urobilinogen 0.2 Ur Leukocyte Esterase Negative Urine Glucose Negative PAWSS Have you Been Recently Intoxicated or Drunk Within the Last 30 days?: Yes Have you Ever Experienced Previous Episodes of Alcohol Withdrawal?: No Have you ever Experienced Withdrawal Seizures?: No Have you ever Experienced Delirium Tremens(DT)s?: No Have you ever undergone Alcohol Rehabilitation Treatment (i.e, inpt ot outpatient treatment programs)?: No Have you ever Experienced Blackouts?: No Have you ever Combined Alcohol with other Downers within the last 90 days?: No Have you ever Combined Alcohol with any other Substance of Abuse during the last 90 days?: No Evidence of Increased Autonomic Activity (i.e. HR>120, tremor, sweating, agitation, nausea)?: No Result: 1
[2022-05-19] MEDS: Prochlorperazine 10 MG/2 ML VIAL IVP (17:38)
[2022-05-19] MEDS: Cyanocobalamin 1000 MCG/ML VIAL IM/SC (18:10)
[2022-05-19] MEDS: Ferrous Sulfate 325 MG TAB PO (19:28)
[2022-05-19] MEDS: Melatonin 3 MG TAB 9 MG PO (20:41)
[2022-05-19] MEDS: LORazepam 0.5 MG TAB PO (20:42)
[2022-05-19] MEDS: Sucralfate 1 GM TAB PO (21:46)
[2022-05-19] MEDS: Mirtazapine 15 MG TAB PO (21:46)
[2022-05-20 06:58] LABS: Abs Immature Grans 0.03 10^3/uL (0.0-0.06); Absolute Basophil Count 0.01 10^3/uL (0.0-0.2); Absolute Lymphocyte Count 0.48 10^3/uL (1.2-3.4); Absolute Monocyte Count 0.66 10^3/uL (0.1-0.8); Absolute Neutrophil Count 2.65 10^3/uL (1.2-6.7); Basophils % 0.3; HCT 33.2 % (36.0-46.0); HGB 10.4 g/dL (11.2-15.7); Immature Grans % 0.8; Lymphocytes % 12.5; MCH 26.1 pg (27.0-33.0); MCHC 31.3 % (32.0-36.0); MCV 83 fL (80-95); Monocytes % 17.2; Neutrophils % 69.2; Platelet Count 159 10^3/uL (130-400); RBC 3.98 10^6/uL (3.93-5.22); RDW 19.8 % (11.7-14.6); RDW-SD 59.8 fL; WBC 3.83 10^3/uL (4.4-10.8)
[2022-05-20 07:27] LABS: ALT 48 U/L (14-59); AST 43 U/L (15-37); Albumin 2.9 g/dL (3.4-5.0); Alkaline Phosphatase 100 U/L (46-116); Anion Gap 8.3 mmol/L (3-11); BUN 18 mg/dL (7-18); Bilirubin, Direct 0.3 mg/dL (0.0-0.2); Bilirubin, Total 0.8 mg/dL (0.2-1.0); CO2 24.7 mmol/L (21.0-32.0); Calcium 9.8 mg/dL (8.5-10.1); Chloride 104 mmol/L (98-107); Estimated GFR 58.39 (mL/min/1.73m2); Glucose 128 mg/dL (74-106); Magnesium 2.4 mg/dL (1.8-2.4); Potassium 3.8 mmol/L (3.5-5.1); Sodium 137 mmol/L (136-145); Total Protein 6.4 g/dL (6.4-8.2)
[2022-05-20 07:30] VITALS: BP 135/70; PULSE 91; RESP 16; TEMP 36.9; O2SAT 95
[2022-05-20] MEDS: Albuterol 2.5 MG/3 ML INH SOLN VIAL UPD (07:38)
[2022-05-20] MEDS: Budesonide 0.5 MG/2 ML UPD VIAL IH (07:38)
[2022-05-20 07:41] VITALS: PULSE 89; RESP 18; O2SAT 94
[2022-05-20 07:55] VITALS: PULSE 91; RESP 2; RESP 20; RESP 8; O2SAT 95
[2022-05-20] MEDS: MEROPENEM 1 GM in Normal Saline 100 ML IVPB ×2 (09:04→19:41)
[2022-05-20] MEDS: Refresh PLUS Eye Drops 0.4ml OU ×5 (09:05→23:46)
[2022-05-20] MEDS: Normal Saline Flush 10 ML SYR IVP (09:05)
[2022-05-20] MEDS: busPIRone 5 MG TAB PO ×2 (09:07→19:41)
[2022-05-20] MEDS: Cyanocobalamin 500 MCG TAB 1000 MCG PO (09:07)
[2022-05-20] MEDS: Ursodiol 300 MG CAP PO ×2 (09:07→19:42)
[2022-05-20] MEDS: Pantoprazole 40 MG TABCR PO ×2 (09:07→19:41)
[2022-05-20] MEDS: Sucralfate 1 GM TAB PO ×4 (09:07→22:20)
[2022-05-20] MEDS: valACYclovir 500 MG TAB PO (09:07)
[2022-05-20] MEDS: amLODIPine 10 MG TAB PO (09:07)
[2022-05-20] MEDS: Ferrous Sulfate 325 MG TAB PO ×2 (09:08→19:41)
[2022-05-20] MEDS: Metoprolol 50 MG TAB PO (09:08)
[2022-05-20] MEDS: Folic Acid 1 MG TAB PO (09:08)
[2022-05-20] MEDS: Venlafaxine 75 MG CAPCR PO (09:08)
[2022-05-20] MEDS: QUEtiapine 25 MG TAB 12.5 MG PO ×2 (09:08→19:42)
[2022-05-20] MEDS: Thiamine 100 MG TAB PO (09:08)
--- NOTE | 2022-05-20 12:53 | PGE_ITS ---
Date of Service Date of service: 05/20/22 Time of Service: 07:30 Assessment and Plan Assessment and plan (1) Acute cholecystitis: Status: Acute Assessment and plan: She looks very good 1 day after laparoscopic cholecystectomy. I think is fine to advance her diet back to regular food. Her labs are reassuring today. I would like for her to get out of bed and move around a little bit. If she feels okay today, I think it would be reasonable to discharge from a surgical standpoint Subjective Subjective Interval history since last seen: She feels better this morning, but still has some mild ongoing abdominal discomfort. Her appetite is a little more than it has been in previous days. She denies any nausea or vomiting overnight. Exam GI Inspection: non-distended Palpation: soft, no hernias and tender Percussion: normal to percussion Objective Last Vital Signs Temp 98.4 F 05/20/22 07:30 Pulse 91 H 05/20/22 07:55 Resp 20 05/20/22 07:55 BP 135/70 05/20/22 07:30 Pulse Ox 95 05/20/22 07:55 Laboratory Results - last 24 hr 05/19/22 05/20/22 05/20/22 16:17 06:15 06:15 WBC 3.83 L RBC 3.98 Hgb 10.4 L Hct 33.2 L MCV 83 MCH 26.1 L MCHC 31.3 L RDW 19.8 H Plt Count 159 MPV 10.0 Immature Gran % 0.8 Neutrophils % 69.2 Lymphocytes % 12.5 Monocytes % 17.2 Eosinophils % 0.0 Basophils % 0.3 Nucleated RBC % 0.0 Absolute Neutrophils 2.65 Absolute Lymphocytes 0.48 L Absolute Monocytes 0.66 Absolute Eosinophils 0.00 Absolute Basophils 0.01 Sodium 137 Potassium 3.8 Chloride 104 Carbon Dioxide 24.7 Anion Gap 8.3 BUN 18 Creatinine 1.0 Est GFR (CKD-EPI 2020) 58.39 Glucose 128 H Calcium 9.8 Magnesium 2.4 Total Bilirubin 0.8 Conjugated Bilirubin 0.3 H AST 43 H ALT 48 Alkaline Phosphatase 100 Total Protein 6.4 Albumin 2.9 L Urine Color Yellow Urine Clarity Clear Urine pH 6.0 Ur Specific [place] 1.020 Urine Protein Negative Urine Ketones Negative Urine Blood Negative Urine Nitrite Negative Urine Bilirubin Negative Urine Urobilinogen 0.2 Ur Leukocyte Esterase Negative Urine Glucose Negative PAWSS Have you Been Recently Intoxicated or Drunk Within the Last 30 days?: Yes Have you Ever Experienced Previous Episodes of Alcohol Withdrawal?: No Have you ever Experienced Withdrawal Seizures?: No Have you ever Experienced Delirium Tremens(DT)s?: No Have you ever undergone Alcohol Rehabilitation Treatment (i.e, inpt ot outpatient treatment programs)?: No Have you ever Experienced Blackouts?: No Have you ever Combined Alcohol with other Downers within the last 90 days?: No Have you ever Combined Alcohol with any other Substance of Abuse during the last 90 days?: No Evidence of Increased Autonomic Activity (i.e. HR>120, tremor, sweating, agitation, nausea)?: No Result: 1
--- NOTE | 2022-05-20 14:39 | CHAPLAIN ---
Leticia said she felt like she was kicked in the stomach after her gallbladder surgery, but it's not painful. She thinks she may be discharged today but said no one has told her anything. Her tv was not working so she was frustrated by that. 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
[2022-05-20] MEDS: Acetaminophen 325 MG TAB PO ×2 (15:03→23:46)
[2022-05-20 15:16] VITALS: BP 117/68; PULSE 71; RESP 16; TEMP 36.7; O2SAT 98
--- NOTE | 2022-05-20 15:49 | W.ANESPOSTOP ---
Postoperative Evaluation Date, Time and Location Date Performed: 05/20/22 Time Performed: 12:24 Patient Location: Med/Surg Vital Signs Most Recent Imported Vital Signs: Most Recent Vital Signs Temp Pulse Resp BP Pulse Ox 36.7 C 71 16 117/68 98 05/20/22 15:16 05/20/22 15:16 05/20/22 15:16 05/20/22 15:16 05/20/22 15:16 Pain Score Most Recent Pain Score: Most Recent Pain Score Pain Level 6 05/20/22 15:16 Assessment Mental Status: Awake (Alert & Oriented to Patient Baseline) Airway and Respiratory Function: Patent airway with normal (patient baseline) respiratory exam Cardiovascular Function: Hemodynamically Stable Hydration Status: Adequately Hydrated Nausea & Vomiting: No Nausea or Vomiting Pain: Pain is tolerable per patient Peripheral Nerve Block: Patient did not receive a nerve block Postoperative Comments:: At the end of the OR case on 05/19/22 it was noted that the foot of the bed was elevated for most of the case with some hyperextension of the knees possible. Re-evaluated patient's legs today with no residual effects noted. Patient denies pain or ROM issues.
--- NOTE | 2022-05-20 17:41 | CMPROGNOTE_ITS ---
- If Service Date Differs Date of service: 05/20/22 Time of Service: 17:42 Care Management Progress Note S/O: Leticia was lying in bed when CM met with her. She stated that she felt like she was punched in the stomach. She was eating lunch and stated that she is tolerating it well. She asked CM to reschedule a urology appointment that is for tomorrow, as she doesn't feel ready to return home today. CM asked if she would be interested in services, and she declined. CM will continue to follow. A: Leticia is a 77 year old female admitted to [facility] on 05/13/22 for pancreatitis. P: Leticia will return home once medically cleared. She will be driven home via [facility] private vehicle when ready, coordinated by CM. She will follow up with her PCP and discharge plan of care. CM will continue to follow.
--- NOTE | 2022-05-20 20:06 | W.PM.PROGNOT ---
Date of Service Date of service: 05/20/22 Time of Service: 17:00 Assessment and Plan Assessment and plan (1) Acute cholecystitis: Status: Acute Assessment and plan: S/p cholecystectomy 05/19/22 Continue meropenem through today. Would d/c tomorrow. (2) Epigastric abdominal pain: Status: Acute Assessment and plan: Possible one or a combination of peptic ulcer disease, alcoholic gastritis, cholecystitis. Continue PPI, carafate. s/p cholecystectomy 05/19/22. (3) Anemia: Status: Chronic Assessment and plan: S/p transfusion of 2 units of pRBCs on this admission. H/H stable. B12 and iron low - replete. Continue Protonix and Carafate. (4) Alcohol abuse: Status: Chronic Assessment and plan: Does not appear to be having acute withdrawal at this time. Continue thiamine, MVI. (5) Transaminitis: Status: Acute Assessment and plan: In setting of suspected cholecystitis and well as EtOH abuse. Improving. Continue to [facility]. (6) Depression: Status: Chronic Assessment and plan: Continue venlafaxine, buspar, mirtazapine (7) Hypomagnesemia: Status: Resolved Assessment and plan: Recheck in am (8) DVT prophylaxis: Status: Acute Assessment and plan: SCDs Holding chemical DVT ppx in light of GI bleeding (9) Discharge planning issues: Status: Acute Assessment and plan: DNR/DNI Anticipate discharge home tomorrow if pain is controlled. Subjective Subjective Interval history since last seen: Leticia reports a lot of RUQ pain and does not feel ready for discharge home today. She is tolerating PO. She denies dizziness, chest pain, shortness of breath. She requests ativan for sleep tonight. Exam Narrative Exam Narrative: General: Pleasant elderly female, A&Ox3, looks tired and uncomfortable, sitting up in a chair holding her RUQ HEENT: EOMI, MMM Heart: RRR, Lungs: CTAB Abdomen: soft, tender in RUQ Extremities: no edema BLEs Objective Last Vital Signs Temp 36.7 C 05/20/22 15:16 Pulse 71 05/20/22 15:16 Resp 16 05/20/22 15:16 BP 117/68 05/20/22 15:16 Pulse Ox 98 05/20/22 15:16 Laboratory Results - last 24 hr 05/20/22 05/20/22 06:15 06:15 WBC 3.83 L RBC 3.98 Hgb 10.4 L Hct 33.2 L MCV 83 MCH 26.1 L MCHC 31.3 L RDW 19.8 H Plt Count 159 MPV 10.0 Immature Gran % 0.8 Neutrophils % 69.2 Lymphocytes % 12.5 Monocytes % 17.2 Eosinophils % 0.0 Basophils % 0.3 Nucleated RBC % 0.0 Absolute Neutrophils 2.65 Absolute Lymphocytes 0.48 L Absolute Monocytes 0.66 Absolute Eosinophils 0.00 Absolute Basophils 0.01 Sodium 137 Potassium 3.8 Chloride 104 Carbon Dioxide 24.7 Anion Gap 8.3 BUN 18 Creatinine 1.0 Est GFR (CKD-EPI 2020) 58.39 Glucose 128 H Calcium 9.8 Magnesium 2.4 Total Bilirubin 0.8 Conjugated Bilirubin 0.3 H AST 43 H ALT 48 Alkaline Phosphatase 100 Total Protein 6.4 Albumin 2.9 L PAWSS Have you Been Recently Intoxicated or Drunk Within the Last 30 days?: Yes Have you Ever Experienced Previous Episodes of Alcohol Withdrawal?: No Have you ever Experienced Withdrawal Seizures?: No Have you ever Experienced Delirium Tremens(DT)s?: No Have you ever undergone Alcohol Rehabilitation Treatment (i.e, inpt ot outpatient treatment programs)?: No Have you ever Experienced Blackouts?: No Have you ever Combined Alcohol with other Downers within the last 90 days?: No Have you ever Combined Alcohol with any other Substance of Abuse during the last 90 days?: No Evidence of Increased Autonomic Activity (i.e. HR>120, tremor, sweating, agitation, nausea)?: No Result: 1
[2022-05-20] MEDS: Melatonin 3 MG TAB 9 MG PO (22:20)
[2022-05-20] MEDS: Mirtazapine 15 MG TAB PO (22:20)
[2022-05-20] MEDS: LORazepam 0.5 MG TAB PO (22:20)
[2022-05-21 00:15] VITALS: BP 128/72; PULSE 74; RESP 18; TEMP 36.7; O2SAT 95
[2022-05-21] MEDS: Refresh PLUS Eye Drops 0.4ml OU ×2 (03:15→08:28)
[2022-05-21 08:13] VITALS: BP 138/76; PULSE 94; RESP 16; TEMP 36.3; O2SAT 95
[2022-05-21] MEDS: amLODIPine 10 MG TAB PO (08:28)
[2022-05-21] MEDS: Ursodiol 300 MG CAP PO (08:28)
[2022-05-21] MEDS: Cyanocobalamin 500 MCG TAB 1000 MCG PO (08:28)
[2022-05-21] MEDS: valACYclovir 500 MG TAB PO (08:28)
[2022-05-21] MEDS: Venlafaxine 75 MG CAPCR PO (08:28)
[2022-05-21] MEDS: Ferrous Sulfate 325 MG TAB PO (08:28)
[2022-05-21] MEDS: Sucralfate 1 GM TAB PO (08:28)
[2022-05-21] MEDS: busPIRone 5 MG TAB PO (08:29)
[2022-05-21] MEDS: Metoprolol 50 MG TAB PO (08:29)
[2022-05-21] MEDS: Pantoprazole 40 MG TABCR PO (08:29)
[2022-05-21] MEDS: QUEtiapine 25 MG TAB 12.5 MG PO (08:29)
[2022-05-21] MEDS: Thiamine 100 MG TAB PO (08:29)
[2022-05-21] MEDS: Folic Acid 1 MG TAB PO (08:29)
[2022-05-21] MEDS: Budesonide 0.5 MG/2 ML UPD VIAL IH (08:37)
[2022-05-21] MEDS: MEROPENEM 1 GM in Normal Saline 100 ML IVPB (09:14)
[2022-05-21] MEDS: Normal Saline Flush 10 ML SYR IVP (10:15)
[2022-05-21] MEDS: Acetaminophen 325 MG TAB PO (11:21)
--- NOTE | 2022-05-21 13:17 | W.PM.PROGNOT ---
Date of Service Date of service: 05/21/22 Time of Service: 13:17 Assessment and Plan Assessment and plan (1) Acute cholecystitis: Status: Acute Assessment and plan: Leticia is POD #2 s/p Lap Soo. She is doing well. Her abdominal pain is appropriate for POD #2. She has had no N/V or worsening pain with eating OK to discharge from surgical standpoint. I would recommend that she stay on PPI BID for at least 3 months and then continue on daily for ever due to her heavy alcohol intake. Appt with Dr. Wells on 06/01 at 1:30 pm Subjective Subjective Interval history since last seen: Leticia is feeling well. She has eaten without N/V. She still complains of some upper abdominal pain. She has been afebrile and she has had several BM's Exam Const General: comfortable and no acute distress HENMT Head: normocephalic and atraumatic Resp Effort & Inspection: normal respiratory effort Auscultation: clear to auscultation bilaterally Cardio Rate: regular rate Rhythm: regular rhythm GI Inspection: incision (c/d/i) Palpation: soft and tender (appropriatly tender to palpation in the RUQ and epigastric area) Objective Last Vital Signs Temp 97.3 F L 05/21/22 08:13 Pulse 94 H 05/21/22 08:13 Resp 16 05/21/22 08:13 BP 138/76 05/21/22 08:13 Pulse Ox 95 05/21/22 08:13 PAWSS Have you Been Recently Intoxicated or Drunk Within the Last 30 days?: Yes Have you Ever Experienced Previous Episodes of Alcohol Withdrawal?: No Have you ever Experienced Withdrawal Seizures?: No Have you ever Experienced Delirium Tremens(DT)s?: No Have you ever undergone Alcohol Rehabilitation Treatment (i.e, inpt ot outpatient treatment programs)?: No Have you ever Experienced Blackouts?: No Have you ever Combined Alcohol with other Downers within the last 90 days?: No Have you ever Combined Alcohol with any other Substance of Abuse during the last 90 days?: No Evidence of Increased Autonomic Activity (i.e. HR>120, tremor, sweating, agitation, nausea)?: No Result: 1
--- NOTE | 2022-05-21 13:57 | W.PM.DS.N ---
Date of service: 05/21/22 Time of Service: 13:57 DS: Diagnosis Discharge Diagnosis (1) Acute cholecystitis: Status: Resolved Discharge Plan Disposition Patient Disposition: HOME Condition: Improving Discharge Details Reason For Visit: Pancreatitis Admit Date/Time: 05/13/22 03:15 Admit Provider: Aydin Joy Attending Provider: Aydin Joy Primary Care Provider: Lavelle Galindo Hospital Course Hospital Course: This is a 77 yo female patient that has had multiple admissions to [facility].? PMH of alcohol abuse, pancreatitis, depression, transaminitis, AMBER, Fe def anemia, HTN.? She presented to the [facility] emergency department complaining of 4-5 days of abdominal pain, nausea and vomiting. She had not been able to keep her medications down for 1-2 days.? She did, however have a clinic visit with palliative care on 05/12/22 and did not mention pain, N/V at that time. She did complain of some cough.? No fever or chills.? No diarrhea.? No CP/palpitations. In the ED her Hgb was 8.3.? Mg low at 1.4.? WBC count mildly low.?CT abd/pelvis:?Minimal pancreatitis suspected.? Gallstones and faint distal common bile duct. stone. Minimal air in the gallbladder versus air containing gallstones. Grossly stable lobulated presacral mass/soft tissue lesion. She was administered IV fluids, antiemetics, IV protonix and a dose of IV ativan. She was admitted to the medical floor for further care and workup.?She was seen by surgery for continued abdominal pain on 05/13/2022. She underwent an ultrasound of the right upper quadrant that demonstrated gallbladder sludge as well as cholelithiasis.? There was a small amount of pericholecystic fluid, but not much gallbladder wall thickening for a woman her age. She underwent cholecystectomy and did well. She was up out of bed and eating on POD 2. She was seen by surgery and cleared for discharge with recommendation to continue PPI BID for at least 3 months. She was discharged to home stable. She declined services. Home Meds and New Rx's Prescriptions: New cyanocobalamin (vitamin B-12) [Vitamin B-12] 500 mcg Tablet 1,000 mcg PO DAILY Qty: 0 0RF ferrous sulfate 325 mg (65 mg iron) Tablet 325 mg PO BID Qty: 30 0RF pantoprazole 40 mg Tablet,Delayed Release (Dr/Ec) 40 mg PO BID@0730,1999 Qty: 60 0RF Continued Xiidra 5 % dropperette 1 drp ophthalmic (eye) BID Rx Instructions: administer approximately 12 hours apart venlafaxine 75 mg capsule,extended release 24hr 75 mg PO DAILY Qty: 90 11RF Hold Instructions: Home Medication placed on hold at Doctor's office melatonin 3 mg capsule 3 mg PO .pm PRN (Reason: sleep) Qty: 90 4RF Rx Instructions: take in the middle of the night if you cannot get back to sleep ( total dose per 24 hrs - 9mg) budesonide [Pulmicort] 0.5 mg/2 mL suspension for nebulization 0.5 mg inhalation DAILY Qty: 60 5RF ipratropium-albuterol 0.5 mg-3 mg(2.5 mg base)/3 mL solution for nebulization 3 ml inhalation Q6H PRN quetiapine 25 mg tablet See Rx Instructions PO BID Qty: 30 2RF Rx Instructions: 0.5 tab PO twice a day; multivitamin [Multiple Vitamins] Tablet 1 tab PO DAILY Qty: 90 3RF albuterol sulfate [Ventolin HFA] 90 mcg/actuation HFA aerosol inhaler 2 puff inhalation QID PRN (Reason: shortness of breath or wheezing) Qty: 8.5 1RF amlodipine 10 mg tablet 10 mg PO DAILY Qty: 90 3RF buspirone 5 mg tablet 5 mg PO BID Qty: 60 5RF folic acid 1 mg tablet 1 mg PO DAILY Qty: 90 3RF melatonin 3 mg capsule 6 mg PO HS Qty: 180 3RF metoprolol tartrate 50 mg tablet 50 mg PO DAILY Qty: 90 3RF mirtazapine 7.5 mg tablet 7.5 mg PO QHS Qty: 90 4RF ondansetron 4 mg tablet,disintegrating 4 mg PO Q8H PRN (Reason: nausea and vomiting) Qty: 20 2RF pantoprazole 40 mg tablet,delayed release (DR/EC) 40 mg PO DAILY Qty: 90 3RF sucralfate 1 gram tablet 1 g PO BID Qty: 60 11RF thiamine HCl (vitamin B1) 100 mg tablet 100 mg PO DAILY Qty: 90 3RF valacyclovir [Valtrex] 500 mg tablet 500 mg PO DAILY Qty: 90 3RF Rx Instructions: Take 500 mg BID for 3 days, then take daily fluticasone propionate 50 mcg/actuation spray,suspension 2 spray NS daily prn Qty: 16 5RF carboxymethylcellulose sodium [Refresh Plus] 0.5 % Dropperette 1 drp OU Q4H WHILE AWAKE Qty: 30 0RF Label Comments: 08/15/19 pt states that she took her blister pack of meds but that she vomited them up Discharge Instructions Instructions: Pancreatitis (DC), Abuse of Alcohol (DC) Stand Alone Forms: Nursing Discharge Form Referrals: Eldon Rivera MD [ [facility] STAFF PHYSICIAN] - 06/11/22 3:00 pm Diandra Wells MD [ [facility] STAFF PHYSICIAN] - 06/01/22 1:30 pm (You have an appointment 06/01 @ 1:30 PM at the office ) Activity:: Activity as Tolerated Equipment/Supplies:: Indwelling urinary cath Diet:: As Tolerated Discharge Orders Discharge Orders: Discharge Order (Routine); Ordered 05/21/22 Ordered By: Jerica Diez Discharge Data Discharge Date/Time-TO BE ENTERED AT DEPARTURE: 05/21/22 14:41 DS: Summary Time Spent with Patient providing and/or coordinating discharge services: Less than 30 minutes Status at Discharge Functional status at discharge: independent ambulation Overall status at discharge: patient is progressing back to baseline Mental Status: mental status grossly normal Speech and Movement: speech and movement normal Mood: congruent mood Affect: normal affect Exam Psych Mental Status: mental status grossly normal Speech and Movement: speech and movement normal Mood: congruent mood Affect: normal affect DS: Data Vitals/I&O Vitals and I&O: Vital Signs Temperature 36.3 C L 05/21/22 08:13 Temperature Source Tympanic 05/21/22 08:13 Pulse 94 H 05/21/22 08:13 Pulse Rhythm Regular 05/21/22 10:18 Pulse 105 H 05/13/22 03:50 Respiratory Rate 16 05/21/22 08:13 Respiratory Effort 05/21/22 10:18 Respiratory Depth Normal 05/21/22 10:18 Respiratory Pattern Normal 05/21/22 10:18 Blood Pressure 138/76 05/21/22 08:13 Blood Pressure Mean 110 05/13/22 03:46 Blood Pressure Position Supine 05/12/22 23:01 Pulse Oximetry 95 05/21/22 08:13 Oxygen Delivery Method Room Air 05/21/22 08:13 Oxygen Flow Rate 0 05/21/22 08:13 Pain Level 8 05/21/22 11:21 Comment 05/19/22 07:26 Intake & Output 05/20/22 05/21/22 05/21/22 23:59 11:59 23:59 Intake Total 1300 / 2320 600 / 600 Balance 1300 / 2320 600 / 600 Intake: IV 100 / 200 Oral 1200 / 2120 600 / 600 Other: Urine Color Yellow Yellow Urine Appearance Clear Clear Urine Odor None Comment urine mixed with stool unable to measure correct output Stool Size Large Large Stool Characteristics Soft Soft Voiding Methods Diaper Toilet Incontinent Diaper PFSH All Active Problems (Updated 05/22/22 @ 00:01 by BARB ACHARYA) Umbilical hernia (Acute) 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 ascites (Acute) Hyperbilirubinemia (Acute) Shortness of breath (Acute) Elevated blood pressure reading without diagnosis of hypertension (Acute) Left arm pain (Acute) Ambulatory dysfunction (Acute) Weakness (Acute) Incontinence (Acute) Urge incontinence (Acute) Anorexia (Acute) Headache (Acute) Onychomycosis (Acute) Depression (Chronic) Chest pain (Acute) Foot pain, right (Acute) Tendinitis of left rotator cuff (Acute) Macrocytosis (Acute 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 Leukopenia (Acute) Headache (Acute) Epigastric abdominal pain (Acute) Calcific tendinitis of left shoulder (Acute) Pulmonary mass (Acute) spiculated mass Pneumonia (Acute) Nausea & vomiting (Acute) Depression with suicidal ideation (Acute) Alcohol abuse (Chronic) Diarrhea (Acute) Epigastric pain (Acute) Nausea and vomiting (Acute) Dehydration (Acute) Hypokalemia (Acute) Discharge planning issues (Acute) C. difficile colitis (Acute) Palliative care patient (Acute) Difficult intravenous access (Acute) Multiple IV attempts, usually requires ultrasound placement. PTSD (post-traumatic stress disorder) (Acute) Anemia (Chronic) Depression (Chronic) Foot pain, right (Acute) T12 compression fracture (Acute) Presacral mass (Chronic) Deviated nasal septum (Acute) Frequent falls (Chronic) Head injury (Acute) Ambulatory dysfunction (Chronic) Shoulder pain, right (Chronic) DVT prophylaxis (Acute) Suicidal ideation (Acute) Dry eye (Acute) Pruritus (Acute) Dystrophic nail (Acute) AMBER (acute kidney injury) (Acute) Iron deficiency anemia (Chronic) Alcohol abuse (Chronic) Hypomagnesemia (Chronic) Discharge planning issues (Acute) UTI (urinary tract infection) (Acute) Fall (Acute) Atelectasis of left lung (Chronic) Advance directive on file (Acute) Nodule of upper lobe of right lung (Acute ~09/13/18) 09/13/18 [facility]; 12mm SPICULATED -kb Cataract (Chronic 11/07/15) Hypertension (Chronic) high today; she will check readings at home Hyperlipidemia (Chronic) Back pain, chronic (Chronic) Depression (Chronic) Osteopenia (Chronic) Medical History (Updated 05/22/22 @ 00:01 by BARB ACHARYA) Adjustment disorder with depressed mood Alcoholic ketosis Anemia Cervical radicular pain neck pain and DJD [facility] 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) pls refrain from alcohol Chronic alcoholism she will not stop drinking unless she checks with me, so that we can help her avert withdrawal I do not think she is capable on her own--she would need placement to achieve required goal of 3 months of sobriety Chronic diarrhea Closed right humeral fracture Corneal ulcer, right (~08/23/18) 08/23/18; UV-kb Fracture of humerus, left, closed Genital herpes simplex recurrent gential; suppressive Valtrex GERD (gastroesophageal reflux disease) GI bleed (12/20/16) Hypertension Hypokalemia Hypomagnesemia Incidental lung nodule, greater than or equal to 8mm 1cm, spiculated, stable for many years, recommend f/u in 6 mo Multiple rib fractures 03/11/19 [facility] Non-cardiac chest pain (09/21/16) [facility] 09/21/16 NEGATIVE MP Osteoarthritis Palliative care patient (03/21/17) Pancreatitis, alcoholic, acute Peripheral edema Photophobia of right eye Pleural effusion on left 03/11/19 [facility] Presacral mass (~09/15/18) 09/15/18 [facility] Sciatica right, epidural injuections [facility] Tubular adenoma of colon (01/28/17) Urinary incontinence 01/24/13 urethral suspension and sling at [facility] (bladder suspension 1991) Vision loss of right eye 08/17/18;[facility]-kb Wernicke encephalopathy Surgical History (Updated 05/17/22 @ 17:08 by Diandra Wells MD) Colonoscopy - [facility] (01/28/17) EGD - [facility] (12/20/16) History of bilateral ligation of fallopian tubes History of Surgical Procedure a. Bladder repair. Repair bladder injury, simple Family History Mother No problems noted. Father , DROWNED at age 50. No problems noted. Sister Personal history of malignant neoplasm MELANOMA Sister No problems noted. Grandfather Personal history of malignant neoplasm STOMACH Grandfather Personal history of malignant neoplasm PROSTATE Grandmother Heart disease PR Acute ill-defined cerebrovascular disease Grandmother Personal history of malignant neoplasm UTERINE Aunt , PR Heart disease PR Aunt , PR Heart disease Brother No problems noted. Social History Smoking/Tobacco Use Status: Former Tobacco Use Quit Date: 08/05/20 Smoking risk assessment performed?: Yes Alcohol Intake: current Alcohol Intake frequency: 3 or more drinks per day Alcohol type: hard liquor Drug use: Never Substance use type: does not use Details: whiskey---last on Tuesday per pt Current gender identity: female Do you feel safe at home: Yes Do you feel safe in your relationship?: Yes
--- NOTE | 2022-05-21 16:11 | PDOC.CMDIS ---
- If Service Date Differs Date of service: 05/21/22 Time of Service: 16:11 LACE Index Scoring Tool - Questions: Length of Stay (in days): 7 - 13 Acuity (Admit via E.D.?): Yes E.D. Visits: 1 - Answers: Total Score: 9 Risk of Readmission: Low Risk Care Management Discharge Reason for Hospitalization: Pancreatitis Discharge Plan: Leticia will return home once medically cleared. She will be driven home via [facility] private vehicle when ready, coordinated by CM. She will follow up with her PCP and discharge plan of care. Patient/Family Education Needs: Review discharge instructions, discuss Ask Me Three.
== END 2022-05-21 14:41 | disposition home or self-care (01) | DRG 417 ==
LOC: ER 05-13 04:20 → MS 05-13 04:21
PROVIDERS: Emergency Medicine; Internal Medicine; Surgery; Admitting Provider Family Medicine; Emergency Provider Student in an Organized Health Care Education/Training Program; PCP Family Medicine; Visit Provider Family Medicine
PROC: 0FT44ZZ Resection of Gallbladder, Percutaneous Endoscopic Approach (ICD-10-PCS; CPT 47562; principal; 2022-05-19 13:00)
DX: K80.12 Calculus of gallbladder with acute and chronic cholecystitis without obstruction (principal); E83.42 Hypomagnesemia; K85.20 Alcohol induced acute pancreatitis without necrosis or infection; K70.30 Alcoholic cirrhosis of liver without ascites; R53.1 Weakness; N39.41 Urge incontinence; F32.A Depression, unspecified; D75.89 Other specified diseases of blood and blood-forming organs; D72.819 Decreased white blood cell count, unspecified; R74.01 Elevation of levels of liver transaminase levels; R91.1 Solitary pulmonary nodule; Z66 Do not resuscitate; K70.10 Alcoholic hepatitis without ascites; D50.9 Iron deficiency anemia, unspecified; I10 Essential (primary) hypertension; R11.2 Nausea with vomiting, unspecified; R63.0 Anorexia; E86.0 Dehydration; E87.6 Hypokalemia; F43.10 Post-traumatic stress disorder, unspecified; N17.9 Acute kidney failure, unspecified; R45.851 Suicidal ideations; E78.5 Hyperlipidemia, unspecified; G89.29 Other chronic pain; M54.9 Dorsalgia, unspecified; M85.80 Other specified disorders of bone density and structure, unspecified site; Z87.891 Personal history of nicotine dependence; K21.9 Gastro-esophageal reflux disease without esophagitis; E80.6 Other disorders of bilirubin metabolism; R19.5 Other fecal abnormalities; D69.6 Thrombocytopenia, unspecified; K42.9 Umbilical hernia without obstruction or gangrene; F10.10 Alcohol abuse, uncomplicated
CPT/HCPCS: 47562; 36415; 78227; 80048; 80053; 80076; 80307; 83690; 84145; 85027; 85652; 86850; 86900; 86901; 86920; 87040; 87077; 87635; 93005; 96361; 96365; 96366; 96375; 99223; 99231; 99232; 99233; 99285; 71046; 74177; 76705; 80320; 81003; 81015; 82140; 82607; 82728; 82746; 83540; 83550; 83615; 83735; 84132; 84484; 85014; 85018; 85025; 85610; 85730; 86140; 87086; 87186; 88304; 93010; 94640; 99238; J0780; J1100; J1885; J1941; J2405; J2704; J3420; J3475; J3480; J3490; J7613; J7620; J7626; P9016

== ENCOUNTER 2022-05-28 22:02 | Emergency (ER) | payer MEDICARE, SELFPAY ==
[2022-05-28 22:13] VITALS: BP 176/98; PULSE 126; RESP 16; TEMP 36.7; O2SAT 96
--- NOTE | 2022-05-28 22:15 | DI.CT_ITS ---
Exam(s) CT ABDOMEN PELVIS W EXAM: CT ABDOMEN PELVIS W CLINICAL HISTORY: vomiting, pain, s/p cholecystectomy. TECHNIQUE: Imaging Protocol: Axial computed tomography images with coronal and sagittal reformatted images were created and reviewed CONTRAST MATERIAL: Intravenous: Omnipaque 100cc Oral: None COMPARISON: CT ABD PELVIS WO CONTRAST from 12/18/[address] CHEST/ABD/PEL W from 07/10/[address] CHEST/ABD/PEL W from 12/13/[address] CHEST PE ABD PELVIS W from 11/01/[address] ABDOMEN PELVIS W from 05/13/2022 FINDINGS: VISUALIZED LUNG BASES: Mild increased markings in the lung bases. No pleural effusions.. ABDOMEN: There has been interval cholecystectomy since the 05/13/2022 CT scan and there is now a moderate amou nt of ascites in the abdomen and pelvis and 1st consideration would be for a bile leak. Intrahepatic ducts are not dilated. CBD is not dilated. There is no calculus evident in the nondilated CBD. LIVER: There are no focal hepatic lesions evident . GALLBLADDER/BILIARY: Surgically absent. CBD is not dilated. PANCREAS: No evidence of pancreatic mass nor dilatation of the pancreatic duct. SPLEEN: Spleen is not enlarged. No obvious intrasplenic lesions. Splenic and portal veins are paten t. ADRENALS: There are no significant adrenal masses. KIDNEYS:There are multiple benign cysts in the kidneys again noted. The largest is again noted to be in the inferior pole of the right kidney and measures 3 x 3 cm. No solid renal masses. No calculi. No hydronephrosis.. ABDOMINAL AORTA: Abdominal aorta is not enlarged. LYMPH NODES:There is no retroperitoneal nor paraaortic adenopathy. ABDOMINAL WALL: No evidence of significant anterior abdominal wall nor inguinal hernia. GI: There is no evidence of bowel obstruction, free air, nor abscess. PELVIS: GI: No evidence of appendicitis.No evidence of sigmoid diverticulitis. LYMPH NODES: There is no intrapelvic nor inguinal adenopathy. REPRODUCTIVE: Uterus normal size. There is again noted the previously described partially fat partia lly solid presacral mass in the pelvis which measures 7.4 cm AP x 4.8 cm wide by 6.8 cm craniocaudal. URINARY BLADDER: No calculi nor obvious masses evident OSSEOUS: No significant osseous lesions. Healed multiple rib fractures noted. No acute fractures evident. There are multilevel degenerative listhesis ease in the lumbosacral spinal column. IMPRESSION: Compared to the prior CT scan of 05/13/2022 there has been interval cholecystectomy. There is no dil atation of biliary tree but there is now a significant amount of ascites in the abdomen pelvis. Firs t consideration is for a bile leak. This can be confirmed with nuclear hepatobiliary imaging. Stable presacral fat containing mass again noted. This exhibits only mild increased in size when com pared to CT scans dating back to June 2019. Mildly increasing in size neoplasm.. Does not conta in calcium. RADIATION DOSE DELIVERED: 897.06mGy.cm Total DLP DATA REPOSITORY: All CT scans at this facility are submitted to the National Radiology Data Registry (NRDR) Dose Index Registry (DIR) with the [employer] ([employer]). RADIATION OPTIMIZATION: All CT scans at this facility use at least one of these dose optimization te chniques: automated exposure control; mA and/or kV adjustment per patient size (includes targeted exa ms where dose is matched to clinical indication); or iterative reconstruction.
[2022-05-28] MEDS: Metoclopramide 10 MG/2 ML VIAL IM (22:46)
[2022-05-28] MEDS: Normal Saline 1,000 ML 1000 ML IV (22:46)
[2022-05-28 22:48] LABS: Abs Immature Grans 0.04 10^3/uL (0.0-0.06); Absolute Basophil Count 0.04 10^3/uL (0.0-0.2); Absolute Eosinophil Count 0.01 10^3/uL (0.0-0.7); Absolute Lymphocyte Count 1.07 10^3/uL (1.2-3.4); Absolute Monocyte Count 0.46 10^3/uL (0.1-0.8); Absolute Neutrophil Count 6.11 10^3/uL (1.2-6.7); Basophils % 0.5; Eosinophils % 0.1; HCT 34.8 % (36.0-46.0); HGB 10.9 g/dL (11.2-15.7); Immature Grans % 0.5; Lymphocytes % 13.8; MCH 26.7 pg (27.0-33.0); MCHC 31.3 % (32.0-36.0); MCV 85 fL (80-95); MPV 8.8 fL (8.0-11.0); Neutrophils % 79.1; Platelet Count 194 10^3/uL (130-400); RBC 4.08 10^6/uL (3.93-5.22); RDW 20.2 % (11.7-14.6); RDW-SD 61.9 fL; WBC 7.73 10^3/uL (4.4-10.8)
[2022-05-28 22:50] LABS: Anisocytosis 1+
[2022-05-28 23:05] LABS: ALT 31 U/L (14-59); AST 35 U/L (15-37); Albumin 3.2 g/dL (3.4-5.0); Alkaline Phosphatase 130 U/L (46-116); Anion Gap 15.6 mmol/L (3-11); BUN 12 mg/dL (7-18); Bilirubin, Total 1.9 mg/dL (0.2-1.0); CO2 21.4 mmol/L (21.0-32.0); CREATININE 0.7 mg/dL (0.55-1.02); Chloride 105 mmol/L (98-107); Estimated GFR 89.58 (mL/min/1.73m2); Glucose 137 mg/dL (74-106); Lipase 32 U/L (73-393); Magnesium 1.4 mg/dL (1.8-2.4); Potassium 4.2 mmol/L (3.5-5.1); Sodium 142 mmol/L (136-145); Total Protein 6.8 g/dL (6.4-8.2); Troponin I < 50 ng/L (<or=60)
--- NOTE | 2022-05-28 23:14 | ED.GENADUL_ITS ---
Discharge Plan Disposition Patient Disposition: HOME Condition: Improving Discharge Details Clinical Impression: Urinary tract infection Primary Care Provider: Lavelle Galindo ED Provider: Aydin Mauricio Home Meds and New Rx's Prescriptions: New cefpodoxime 100 mg tablet 100 mg PO BID 7 Days Qty: 14 0RF Rx Instructions: must administer with a meal/food No Action Xiidra 5 % dropperette 1 drp ophthalmic (eye) BID Rx Instructions: administer approximately 12 hours apart venlafaxine 75 mg capsule,extended release 24hr 75 mg PO DAILY Qty: 90 11RF Hold Instructions: Home Medication placed on hold at Doctor's office melatonin 3 mg capsule 3 mg PO .pm PRN (Reason: sleep) Qty: 90 4RF Rx Instructions: take in the middle of the night if you cannot get back to sleep ( total dose per 24 hrs - 9mg) budesonide [Pulmicort] 0.5 mg/2 mL suspension for nebulization 0.5 mg inhalation DAILY Qty: 60 5RF doxycycline hyclate 100 mg capsule 100 mg PO BID Qty: 20 0RF metronidazole 500 mg tablet 500 mg PO TID Qty: 30 0RF ipratropium-albuterol 0.5 mg-3 mg(2.5 mg base)/3 mL solution for nebulization 3 ml inhalation Q6H PRN quetiapine 25 mg tablet See Rx Instructions PO BID Qty: 30 2RF Rx Instructions: 0.5 tab PO twice a day; multivitamin [Multiple Vitamins] Tablet 1 tab PO DAILY Qty: 90 3RF albuterol sulfate [Ventolin HFA] 90 mcg/actuation HFA aerosol inhaler 2 puff inhalation QID PRN (Reason: shortness of breath or wheezing) Qty: 8.5 1RF amlodipine 10 mg tablet 10 mg PO DAILY Qty: 90 3RF buspirone 5 mg tablet 5 mg PO BID Qty: 60 5RF folic acid 1 mg tablet 1 mg PO DAILY Qty: 90 3RF melatonin 3 mg capsule 6 mg PO HS Qty: 180 3RF metoprolol tartrate 50 mg tablet 50 mg PO DAILY Qty: 90 3RF mirtazapine 7.5 mg tablet 7.5 mg PO QHS Qty: 90 4RF ondansetron 4 mg tablet,disintegrating 4 mg PO Q8H PRN (Reason: nausea and vomiting) Qty: 20 2RF pantoprazole 40 mg tablet,delayed release (DR/EC) 40 mg PO DAILY Qty: 90 3RF sucralfate 1 gram tablet 1 g PO BID Qty: 60 11RF thiamine HCl (vitamin B1) 100 mg tablet 100 mg PO DAILY Qty: 90 3RF valacyclovir [Valtrex] 500 mg tablet 500 mg PO DAILY Qty: 90 3RF Rx Instructions: Take 500 mg BID for 3 days, then take daily fluticasone propionate 50 mcg/actuation spray,suspension 2 spray NS daily prn Qty: 16 5RF carboxymethylcellulose sodium [Refresh Plus] 0.5 % Dropperette 1 drp OU Q4H WHILE AWAKE Qty: 30 0RF Label Comments: 08/15/19 pt states that she took her blister pack of meds but that she vomited them up cyanocobalamin (vitamin B-12) [Vitamin B-12] 500 mcg Tablet 1,000 mcg PO DAILY Qty: 0 0RF ferrous sulfate 325 mg (65 mg iron) Tablet 325 mg PO BID Qty: 30 0RF pantoprazole 40 mg Tablet,Delayed Release (Dr/Ec) 40 mg PO BID@0730,1999 Qty: 60 0RF Discharge Instructions Instructions: Urinary Tract Infection in Women (ED) Additional Instructions: Please follow-up with your primary care physician. Please return to the emergen cy department for any worsening symptoms. Discharge Data Discharge Date/Time-TO BE ENTERED AT DEPARTURE: 05/29/22 06:28 Medical Decision Making <CELINA Snow - Last Filed: 06/03/22 12:47> Labs stable for patient aside from magnesium which , will supplement with 2 g of mag gap of 15.6 likely secondary to dehydration from vomiting Will order CT scan given recent surgery, IV fluids, telemetry monitoring, transition care pending CT scan and return of labs Medical Records Medical records reviewed: Yes I reviewed the patient's medical records. Lab Data Lab results reviewed: Yes I reviewed the patient's lab results. <Aydin Mauricio MD - Last Filed: 05/29/22 02:21> Labs stable for patient aside from magnesium which , will supplement with 2 g of mag gap of 15.6 likely secondary to dehydration from vomiting Will order CT scan given recent surgery, IV fluids, telemetry monitoring, transition care pending CT scan and return of labs 2: 16 patient resting comfortably no acute distress. Abdomen soft nontender, does have noticeable ascites on exam and imaging, caput medusa consistent with advanced liver cirrhosis, last drink 1 day ago does have some tongue fasciculations and tachycardia, improvement of symptoms after fluids and benzodiazepine administration. Evidence of UTI. Will treat empirically. Patient to be discharged home with oral antibiotics. Home care instructions and return precautions given. HPI <CELINA Snow - Last Filed: 06/03/22 12:47> General Date/Time Provider Initiated Documentation: 05/28/22 22:07 . HPI Narrative: This 77-year-old female with history of umbilical hernia with recent cholecystectomy, alcoholic cirrhosis, hyperbilirubinemia, shortness of breath pneumonia, nausea and vomiting, presents with report of abdominal pain, nausea, vomiting. Status post surgery on Tuesday of this week. Denies any fever or chills. Denies blood in vomitus. States her symptoms started approximately 2 days prior to arrival. Denies any recent alcohol consumption. Related Data Home Medications Medication Instructions Recorded Confirmed carboxymethylcellulose sodium 0.5 1 drp OU Q4H WHILE AWAKE #30 ea 06/20/19 05/30/22 % eye drops in a dropperette (Refresh Plus) lifitegrast 5 % eye drops in a 1 drp ophthalmic (eye) BID 08/05/20 05/30/22 dropperette (Xiidra) multivitamin (Multiple Vitamins 1 tab PO DAILY #90 tabs 09/05/20 05/30/22 tablet) venlafaxine 75 mg capsule,extended 75 mg PO DAILY #90 caps 08/05/21 05/30/22 release 24 hr ipratropium 0.5 mg-albuterol 3 mg 3 ml inhalation Q6H PRN 12/25/21 05/30/22 (2.5 mg base)/3 mL nebulization soln quetiapine 25 mg tablet See Rx Instructions PO BID #30 tabs 12/29/21 05/30/22 albuterol sulfate 90 mcg/actuation 2 puff inhalation QID PRN 02/08/22 05/30/22 aerosol inhaler (Ventolin HFA) shortness of breath or wheezing #8.5 grams amlodipine 10 mg tablet 10 mg PO DAILY #90 tabs 02/08/22 05/30/22 buspirone 5 mg tablet 5 mg PO BID #60 tabs 02/08/22 05/30/22 folic acid 1 mg tablet 1 mg PO DAILY #90 tabs 02/08/22 05/30/22 melatonin 3 mg capsule 6 mg PO HS #180 caps 02/08/22 05/30/22 metoprolol tartrate 50 mg tablet 50 mg PO DAILY #90 tabs 02/08/22 05/30/22 mirtazapine 7.5 mg tablet 7.5 mg PO QHS #90 tabs 02/08/22 05/30/22 ondansetron 4 mg disintegrating 4 mg PO Q8H PRN nausea and 02/08/22 05/30/22 tablet vomiting #20 tabs pantoprazole 40 mg tablet,delayed 40 mg PO DAILY #90 tabs 02/08/22 05/30/22 release sucralfate 1 gram tablet 1 g PO BID #60 tabs 02/08/22 05/30/22 thiamine HCl (vitamin B1) 100 mg 100 mg PO DAILY #90 tabs 02/08/22 05/30/22 tablet valacyclovir 500 mg tablet 500 mg PO DAILY #90 tabs 02/08/22 05/30/22 (Valtrex) fluticasone propionate 50 2 spray NS daily prn #16 grams 03/06/22 05/30/22 mcg/actuation nasal spray,suspension budesonide 0.5 mg/2 mL suspension 0.5 mg (2 mL) inhalation DAILY #60 05/06/22 05/30/22 for nebulization (Pulmicort) mL melatonin 3 mg capsule 3 mg PO .pm PRN sleep #90 caps 05/12/22 05/30/22 cyanocobalamin (vitamin B-12) 500 1,000 mcg PO DAILY #0 tabs 05/21/22 05/30/22 mcg tablet (Vitamin B-12) ferrous sulfate 325 mg (65 mg 325 mg PO BID #30 tabs 05/21/22 05/30/22 iron) tablet pantoprazole 40 mg tablet,delayed 40 mg PO BID@0730,2000 #60 tabs 05/21/22 05/30/22 release doxycycline hyclate 100 mg capsule 100 mg PO BID #20 caps 05/27/22 05/30/22 metronidazole 500 mg tablet 500 mg PO TID #30 tabs 05/27/22 05/30/22 cefpodoxime 100 mg tablet 100 mg PO BID 7 days #14 tabs 05/29/22 05/30/22 Previous Rx's Medication Instructions Recorded carboxymethylcellulose sodium 0.5 1 drp OU Q4H WHILE AWAKE #30 ea 06/20/19 % eye drops in a dropperette (Refresh Plus) multivitamin (Multiple Vitamins 1 tab PO DAILY #90 tabs 09/05/20 tablet) venlafaxine 75 mg capsule,extended 75 mg PO DAILY #90 caps 08/05/21 release 24 hr quetiapine 25 mg tablet See Rx Instructions PO BID #30 tabs 12/29/21 albuterol sulfate 90 mcg/actuation 2 puff inhalation QID PRN 02/08/22 aerosol inhaler (Ventolin HFA) shortness of breath or wheezing #8.5 grams amlodipine 10 mg tablet 10 mg PO DAILY #90 tabs 02/08/22 buspirone 5 mg tablet 5 mg PO BID #60 tabs 02/08/22 folic acid 1 mg tablet 1 mg PO DAILY #90 tabs 02/08/22 melatonin 3 mg capsule 6 mg PO HS #180 caps 02/08/22 metoprolol tartrate 50 mg tablet 50 mg PO DAILY #90 tabs 02/08/22 mirtazapine 7.5 mg tablet 7.5 mg PO QHS #90 tabs 02/08/22 ondansetron 4 mg disintegrating 4 mg PO Q8H PRN nausea and 02/08/22 tablet vomiting #20 tabs pantoprazole 40 mg tablet,delayed 40 mg PO DAILY #90 tabs 02/08/22 release sucralfate 1 gram tablet 1 g PO BID #60 tabs 02/08/22 thiamine HCl (vitamin B1) 100 mg 100 mg PO DAILY #90 tabs 02/08/22 tablet valacyclovir 500 mg tablet 500 mg PO DAILY #90 tabs 02/08/22 (Valtrex) fluticasone propionate 50 2 spray NS daily prn #16 grams 03/06/22 mcg/actuation nasal spray,suspension budesonide 0.5 mg/2 mL suspension 0.5 mg (2 mL) inhalation DAILY #60 05/06/22 for nebulization (Pulmicort) mL melatonin 3 mg capsule 3 mg PO .pm PRN sleep #90 caps 05/12/22 cyanocobalamin (vitamin B-12) 500 1,000 mcg PO DAILY #0 tabs 05/21/22 mcg tablet (Vitamin B-12) ferrous sulfate 325 mg (65 mg 325 mg PO BID #30 tabs 05/21/22 iron) tablet pantoprazole 40 mg tablet,delayed 40 mg PO BID@07,1999 #60 tabs 05/21/22 release doxycycline hyclate 100 mg capsule 100 mg PO BID #20 caps 05/27/22 metronidazole 500 mg tablet 500 mg PO TID #30 tabs 05/27/22 cefpodoxime 100 mg tablet 100 mg PO BID 7 days #14 tabs 05/29/22 Allergies Allergy/AdvReac Type Severity Reaction Status Date / Time Penicillins Allergy Mild Rash Verified 05/30/22 09:29 ramipril Allergy Unknown ITCHING Verified 05/30/22 09:29 meperidine [From Demerol] AdvReac Severe Nausea Verified 05/30/22 09:29 bupropion AdvReac Mild GI upset Verified 05/30/22 09:29 AMBER Inhibitors AdvReac Unknown COUGH Verified 05/30/22 09:29 alendronate sodium AdvReac Unknown GI Distress Verified 05/30/22 09:29 clarithromycin AdvReac Unknown intolerant Verified 05/30/22 09:29 paroxetine AdvReac Unknown Diarrhea Verified 05/30/22 09:29 General Stated Complaint: Abd Prob JORDAN: 3 Review of Systems <CELINA Snow - Last Filed: 06/03/22 12:47> All systems reviewed & are unremarkable except as noted in HPI and below PFSH <CELINA Snow - Last Filed: 06/03/22 12:47> All Active Problems Advance care planning (Acute) Discharge planning issues (Acute) DVT prophylaxis (Acute) Cirrhosis of liver with ascites (Acute) Animal bite of right hand with infection (Acute) Urinary tract infection (Acute) Umbilical hernia (Acute) 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 ascites (Acute) Hyperbilirubinemia (Acute) Shortness of breath (Acute) Elevated blood pressure reading without diagnosis of hypertension (Acute) Left arm pain (Acute) Ambulatory dysfunction (Acute) Weakness (Acute) Incontinence (Acute) Urge incontinence (Acute) Anorexia (Acute) Headache (Acute) Onychomycosis (Acute) Depression (Chronic) Chest pain (Acute) Foot pain, right (Acute) Tendinitis of left rotator cuff (Acute) Macrocytosis (Acute 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 Leukopenia (Acute) Headache (Acute) Epigastric abdominal pain (Acute) Calcific tendinitis of left shoulder (Acute) Pulmonary mass (Acute) spiculated mass Pneumonia (Acute) Nausea & vomiting (Acute) Depression with suicidal ideation (Acute) Alcohol abuse (Chronic) Diarrhea (Acute) Epigastric pain (Acute) Nausea and vomiting (Acute) Dehydration (Acute) Hypokalemia (Acute) Discharge planning issues (Acute) C. difficile colitis (Acute) Palliative care patient (Acute) Difficult intravenous access (Acute) Multiple IV attempts, usually requires ultrasound placement. PTSD (post-traumatic stress disorder) (Acute) Anemia (Chronic) Depression (Chronic) Foot pain, right (Acute) T12 compression fracture (Acute) Presacral mass (Chronic) Deviated nasal septum (Acute) Frequent falls (Chronic) Head injury (Acute) Ambulatory dysfunction (Chronic) Shoulder pain, right (Chronic) DVT prophylaxis (Acute) Suicidal ideation (Acute) Dry eye (Acute) Pruritus (Acute) Dystrophic nail (Acute) AMBER (acute kidney injury) (Acute) Iron deficiency anemia (Chronic) Alcohol abuse (Chronic) Hypomagnesemia (Chronic) Discharge planning issues (Acute) UTI (urinary tract infection) (Acute) Fall (Acute) Atelectasis of left lung (Chronic) Advance directive on file (Acute) Nodule of upper lobe of right lung (Acute ~09/13/18) 09/13/18 [facility]; 12mm SPICULATED -kb Cataract (Chronic 11/07/15) Hypertension (Chronic) high today; she will check readings at home Hyperlipidemia (Chronic) Back pain, chronic (Chronic) Depression (Chronic) Osteopenia (Chronic) Medical History Adjustment disorder with depressed mood Alcoholic ketosis Anemia Cervical radicular pain neck pain and [facility] 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) pls refrain from alcohol Chronic alcoholism she will not stop drinking unless she checks with me, so that we can help her avert withdrawal I do not think she is capable on her own--she would need placement to achieve required goal of 3 months of sobriety Chronic diarrhea Closed right humeral fracture Corneal ulcer, right (~08/23/18) 08/23/18; [facility] Fracture of humerus, left, closed Genital herpes simplex recurrent gential; suppressive Valtrex GERD (gastroesophageal reflux disease) GI bleed (12/20/16) Hypertension Hypokalemia Hypomagnesemia Incidental lung nodule, greater than or equal to 8mm 1cm, spiculated, stable for many years, recommend f/u in 6 mo Multiple rib fractures 03/11/19 [facility] Non-cardiac chest pain (09/21/16) [facility] [place] [place] 09/21/16 NEGATIVE MP Osteoarthritis Palliative care patient (03/21/17) Pancreatitis, alcoholic, acute Peripheral edema Photophobia of right eye Pleural effusion on left 03/11/19 [facility] Presacral mass (~09/15/18) 09/15/18 [facility] Sciatica right, epidural injuections [facility] Tubular adenoma of colon (01/28/17) Urinary incontinence 01/24/13 urethral suspension and sling at [facility] [place] [place] (bladder suspension 1991) 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 Bladder repair. Repair bladder injury, simple Family History Mother No problems noted. Father , DROWNED at age 50. No problems noted. Sister Personal history of malignant neoplasm MELANOMA Sister No problems noted. Grandfather Personal history of malignant neoplasm STOMACH Grandfather Personal history of malignant neoplasm PROSTATE Grandmother Heart disease DE Acute ill-defined cerebrovascular disease Grandmother Personal history of malignant neoplasm UTERINE Aunt , [place] Heart disease DE Aunt , [place] Heart disease Brother No problems noted. Social History Smoking/Tobacco Use Status: Former Tobacco Use Quit Date: 08/05/20 Smoking risk assessment performed?: Yes Alcohol Intake: current Alcohol Intake frequency: 3 or more drinks per day Alcohol type: hard liquor Drug use: Never Substance use type: does not use Details: patient states has not had anything to drink for about 5 weeks. patient denies withdrawl symptoms. Current gender identity: female Do you feel safe at home: Yes Do you feel safe in your relationship?: Yes Exam <CELINA Snow - Last Filed: 06/03/22 12:47> Const General: cooperative and ill appearing HENMT Mouth: oral mucosae normal Eyes Sclera: sclerae normal Pupils: PERRL Resp Effort & Inspection: normal respiratory effort Auscultation: clear to auscultation bilaterally Cardio Rate: tachycardic Rhythm: regular rhythm GI Other: ascites, tenderness Skin General skin exam: no rashes or lesions noted Neuro General: patient alert and patient oriented x3 Extrem General: normal to inspection Course <CELINA Snow - Last Filed: 06/03/22 12:47> Vital Signs Vital signs: Vital Signs Temperature 36.7 C 05/28/22 22:13 Pulse 126 H 05/28/22 22:13 Respiratory Rate 16 05/28/22 22:13 Blood Pressure 176/98 H 05/28/22 22:13 Pulse Oximetry 96 05/28/22 22:13 Temperature 36.7 C 05/28/22 22:13 Temperature Source Oral 05/28/22 22:13 Pulse 126 H 05/28/22 22:13 Respiratory Rate 16 05/28/22 22:13 Respiratory Effort Non-Labored 05/28/22 22:18 Blood Pressure 176/98 H 05/28/22 22:13 Blood Pressure Position Supine 05/28/22 22:13 Pulse Oximetry 96 05/28/22 22:13 Oxygen Delivery Method Room Air 05/28/22 22:13 Oxygen Flow Rate 0 05/28/22 22:13 Pain Level 6 05/28/22 22:13 Lab/Test Results Lab/Test Results: Laboratory Tests Range/Units 05/28/22 05/28/22 05/28/22 22:44 22:44 22:44 WBC (4.4-10.8) 10^3/uL 7.73 RBC (3.93-5.22) 10^6/uL 4.08 Hgb (11.2-15.7) g/dL 10.9 L Hct (36.0-46.0) % 34.8 L MCV (80-95) fL 85 MCH (27.0-33.0) pg 26.7 L MCHC (32.0-36.0) % 31.3 L RDW (11.7-14.6) % 20.2 H Plt Count (130-400) 10^3/uL 194 MPV (8.0-11.0) fL 8.8 Immature Gran % 0.5 Neutrophils % 79.1 Lymphocytes % 13.8 Monocytes % 6.0 Eosinophils % 0.1 Basophils % 0.5 Nucleated RBC % (0.0-0.3) % 0.0 Absolute Neutrophils (1.2-6.7) 10^3/uL 6.11 Absolute Lymphocytes (1.2-3.4) 10^3/uL 1.07 L Absolute Monocytes (0.1-0.8) 10^3/uL 0.46 Absolute Eosinophils (0.0-0.7) 10^3/uL 0.01 Absolute Basophils (0.0-0.2) 10^3/uL 0.04 RBC Morphology See Below Anisocytosis 1+ Sodium Cancelled Potassium Cancelled Chloride Cancelled Carbon Dioxide Cancelled Anion Gap Cancelled BUN Cancelled Creatinine Cancelled Est GFR (CKD-EPI 2020) Cancelled Glucose Cancelled Calcium Cancelled Magnesium Cancelled Total Bilirubin Cancelled AST Cancelled ALT Cancelled Alkaline Phosphatase Cancelled Troponin I Cancelled Total Protein Cancelled Albumin Cancelled Lipase Cancelled Range/Units 05/28/22 22:44 WBC (4.4-10.8) 10^3/uL RBC (3.93-5.22) 10^6/uL Hgb (11.2-15.7) g/dL Hct (36.0-46.0) % MCV (80-95) fL MCH (27.0-33.0) pg MCHC (32.0-36.0) % RDW (11.7-14.6) % Plt Count (130-400) 10^3/uL MPV (8.0-11.0) fL Immature Gran % Neutrophils % Lymphocytes % Monocytes % Eosinophils % Basophils % Nucleated RBC % (0.0-0.3) % Absolute Neutrophils (1.2-6.7) 10^3/uL Absolute Lymphocytes (1.2-3.4) 10^3/uL Absolute Monocytes (0.1-0.8) 10^3/uL Absolute Eosinophils (0.0-0.7) 10^3/uL Absolute Basophils (0.0-0.2) 10^3/uL RBC Morphology Anisocytosis Sodium 142 Potassium 4.2 Chloride 105 Carbon Dioxide 21.4 Anion Gap 15.6 H BUN 12 Creatinine 0.7 Est GFR (CKD-EPI 2020) 89.58 Glucose 137 H Calcium 10.0 Magnesium 1.4 L Total Bilirubin 1.9 H AST 35 ALT 31 Alkaline Phosphatase 130 H Troponin I < 50 Total Protein 6.8 Albumin 3.2 L Lipase 32 Sign Out <CELINA Snow - Last Filed: 06/03/22 12:47> Sign Out Data: Sign Out Comment: pending ct, labs, disposition Last updated by Monica Yarbrough PA at 05/29/22 00:09
[2022-05-28] MEDS: MAGNESIUM SULFATE 2 GM/50 ML BAG IVPB (23:29)
--- NOTE | 2022-05-28 23:41 | DI.VRAD_ITS ---
PROCEDURE INFORMATION: Exam: CT Abdomen And Pelvis With Contrast Exam date and time: 05/28/2022 11:00 PM Age: 77 years old Clinical indication: Other: Vomiting, pain, S/P cholecystectomy TECHNIQUE: Imaging protocol: Computed tomography of the abdomen and pelvis with contrast. COMPARISON: CT ABDOMEN PELVIS W 05/13/2022 1:15 AM FINDINGS: Lungs: Bibasilar linear opacities of atelectasis and/or fibrosis. Liver: Unremarkable. No mass. Gallbladder and bile ducts: Interval cholecystectomy. Pancreas: Unremarkable. No ductal dilation. Spleen: Unremarkable. No splenomegaly. Adrenal glands: Normal. No mass. Kidneys and ureters: Bilateral renal cortical cysts, simple, up to 2.9 centimetres in diameter. Several small bilateral renal cortical hypodensities that are too small to accurately characterize, likely simple cysts. Stomach and bowel: Small hiatal hernia containing proximal stomach. Stomach is under distended, cannot rule out mucosal thickening. No mechanical bowel obstruction. No mucosal thickening within colon or small bowel. Appendix: No evidence of appendicitis. Intraperitoneal space: Ascites, not seen on the prior study. Vasculature: No abdominal aortic aneurysm. Lymph nodes: No enlarged lymph nodes. Urinary bladder: Unremarkable as visualized. Reproductive: Small cyst and calcification within left adnexa. No right adnexal lesions identified. Involuting anteverted uterus with small calcifications, possibly vascular, otherwise, unremarkable. Bones/joints: Multilevel degenerative changes within thoracic and lumbar spine. Anterolisthesis of L4 over L5. Deformities of multiple healed rib fractures on the left. Deformities of healed rib fractures on the right. Soft tissues: Presacral soft tissue density mass, 5.2 x 3.0 centimetres, surrounded by adipose tissue, seen on the prior study. Focal areas of stranding/infiltration within subcutaneous adipose tissues of the anterior abdominal wall, some of them a related to recent cholecystectomy. Some of them represent diffuse infiltration stranding of the adipose tissue. IMPRESSION: Status post interval cholecystectomy. Interval development of moderate amount of ascites. No free intraperitoneal air identified. Stable presacral mass. Dictated and Authenticated by: Aly Loera MD. Ordering:RIZWAN Anderson MD
[2022-05-29] MEDS: LORazepam 2 MG/ML VIAL 1 MG IVP (00:35)
[2022-05-29] MEDS: Normal Saline 1,000 ML 1000 ML IV (00:36)
[2022-05-29 01:49] VITALS: BP 166/98; PULSE 104; RESP 16; O2SAT 95
[2022-05-29 01:56] LABS: Bilirubin Negative (Negative); Blood Small (Negative); Clarity Clear (Clear); Glucose Negative (Negative); Ketones 15 mg/dL (Negative); Leukocyte Esterase Trace (Negative); Nitrite Positive (Negative); Urobilinogen 0.2 EU/dL (Up TO 0.2); pH 5.5 (5-8)
[2022-05-29 02:04] LABS: Bacteria Many HPF (Negative); C & S Indicated? Yes; Casts Negative LPF (Negative); Crystals Negative HPF (Negative); Epithelial Cells Few HPF (Negative); Mucus Negative (Negative); WBC 20-50 HPF (0-5)
[2022-05-29] MEDS: Cefpodoxime 200 MG TAB PO (02:30)
== END 2022-05-29 06:28 | disposition home or self-care (01) ==
PROVIDERS: Physician Assistant; Emergency Provider Emergency Medicine; PCP Family Medicine
DX: N39.0 Urinary tract infection, site not specified (principal); I10 Essential (primary) hypertension; F43.21 Adjustment disorder with depressed mood; Z87.891 Personal history of nicotine dependence
CPT/HCPCS: 80053; 83690; 87077; 96361; 96372; 96374; 96375; 99285; 74177; 81003; 81015; 83735; 84484; 85025; 87086; 87186; 99284; J2060; J2765

== ENCOUNTER 2022-05-30 09:18 | Inpatient (IN) | payer MEDICARE, SELFPAY ==
[2022-05-30] VITALS (28 sets, daily range): BP systolic 143–169; BP diastolic 68–115; PULSE 96–114; RESP 16–30; TEMP 36.7–37.3; O2SAT 95–97
[2022-05-30 09:56] LABS: Source Nasal/Nares
--- NOTE | 2022-05-30 09:57 | W.ED.GENAD ---
Discharge Plan Disposition Patient Disposition: [facility] INPATIENT Condition: Stable Discharge Details Chief Complaint: Abd Prob Clinical Impression: Nausea & vomiting Primary Care Provider: Lavelle Galindo ED Provider: Blaze Mccarthy [place] Meds and New Rx's Prescriptions: No Action Xiidra 5 % dropperette 1 drp ophthalmic (eye) BID Rx Instructions: administer approximately 12 hours apart venlafaxine 75 mg capsule,extended release 24hr 75 mg PO DAILY Qty: 90 11RF Hold Instructions: Home Medication placed on hold at Doctor's office melatonin 3 mg capsule 3 mg PO .pm PRN (Reason: sleep) Qty: 90 4RF Rx Instructions: take in the middle of the night if you cannot get back to sleep ( total dose per 24 hrs - 9mg) budesonide [Pulmicort] 0.5 mg/2 mL suspension for nebulization 0.5 mg inhalation DAILY Qty: 60 5RF doxycycline hyclate 100 mg capsule 100 mg PO BID Qty: 20 0RF metronidazole 500 mg tablet 500 mg PO TID Qty: 30 0RF ipratropium-albuterol 0.5 mg-3 mg(2.5 mg base)/3 mL solution for nebulization 3 ml inhalation Q6H PRN quetiapine 25 mg tablet See Rx Instructions PO BID Qty: 30 2RF Rx Instructions: 0.5 tab PO twice a day; multivitamin [Multiple Vitamins] Tablet 1 tab PO DAILY Qty: 90 3RF albuterol sulfate [Ventolin HFA] 90 mcg/actuation HFA aerosol inhaler 2 puff inhalation QID PRN (Reason: shortness of breath or wheezing) Qty: 8.5 1RF amlodipine 10 mg tablet 10 mg PO DAILY Qty: 90 3RF buspirone 5 mg tablet 5 mg PO BID Qty: 60 5RF folic acid 1 mg tablet 1 mg PO DAILY Qty: 90 3RF melatonin 3 mg capsule 6 mg PO HS Qty: 180 3RF metoprolol tartrate 50 mg tablet 50 mg PO DAILY Qty: 90 3RF mirtazapine 7.5 mg tablet 7.5 mg PO QHS Qty: 90 4RF ondansetron 4 mg tablet,disintegrating 4 mg PO Q8H PRN (Reason: nausea and vomiting) Qty: 20 2RF pantoprazole 40 mg tablet,delayed release (DR/EC) 40 mg PO DAILY Qty: 90 3RF sucralfate 1 gram tablet 1 g PO BID Qty: 60 11RF thiamine HCl (vitamin B1) 100 mg tablet 100 mg PO DAILY Qty: 90 3RF valacyclovir [Valtrex] 500 mg tablet 500 mg PO DAILY Qty: 90 3RF Rx Instructions: Take 500 mg BID for 3 days, then take daily fluticasone propionate 50 mcg/actuation spray,suspension 2 spray NS daily prn Qty: 16 5RF carboxymethylcellulose sodium [Refresh Plus] 0.5 % Dropperette 1 drp OU Q4H WHILE AWAKE Qty: 30 0RF Label Comments: 08/15/19 pt states that she took her blister pack of meds but that she vomited them up cyanocobalamin (vitamin B-12) [Vitamin B-12] 500 mcg Tablet 1,000 mcg PO DAILY Qty: 0 0RF ferrous sulfate 325 mg (65 mg iron) Tablet 325 mg PO BID Qty: 30 0RF pantoprazole 40 mg Tablet,Delayed Release (Dr/Ec) 40 mg PO BID@07,1999 Qty: 60 0RF cefpodoxime 100 mg tablet 100 mg PO BID 7 Days Qty: 14 0RF Rx Instructions: must administer with a meal/food Medical Decision Making 77 yo female with hx of cirrhosis, who had a cholecystectomy last week and was seen in the ED two days ago for n/v and d/c'd, comes in with continued intermittent n/v and feeling as though her abdomen is distended. She denies chest pain, fevers, chills, headache. The vrad read when she had a ct done 2 days ago stated moderate amount of ascites and overread by Dr. Quintero questioned a bile leak. Today she again had n/v so called ems. She arrives stable. She is caox4. She was bitten by a cat last week as well and started on doxy, her right hand is not red or swollen, has mild tenderness of it, no warmth or other signs of infection, full rom. Her abdomen is distended and mild tenderness in the mid abdomen. On bedside u/s has moderate to large abmount of ascites. Will obtain cbc, cmp, lipase and perform paracentesis. She was advised of the risks and benefits of the procedure and consents to having it done, has decision making capacity. labs show no clear sbp, and blood work without acute changes from baseline. Given her recent surgery and the overread by rebecca discussed with Dr. Noble who accepts for admission and nuclear study tomorrow. Differential Diagnosis Differential Diagnosis: sbp, cirrhosis, bile leak Medical Records Medical records reviewed: Yes I reviewed the patient's medical records. Lab Data Lab results reviewed: Yes I reviewed the patient's lab results. HPI General Mode of arrival: EMS. Date/Time Provider Initiated Documentation: 05/30/22 09:30. Limitations to Documentation: no limitations. Information obtained by: patient. History of Present Illness 77 year old F presents to the emergency department with the chief complaint of nausea and vomit, described as moderate, Patient started experiencing this day(s) (3) and it has been intermittent. No relieving factors improve symptom(s), No exacerbating factors reported . Patient notes denies fever/chills. Patient did receive the following treatments prior to arrival, none Related Data Home Medications Medication Instructions Recorded Confirmed carboxymethylcellulose sodium 0.5 1 drp OU Q4H WHILE AWAKE #30 ea 06/20/19 05/30/22 % eye drops in a dropperette (Refresh Plus) lifitegrast 5 % eye drops in a 1 drp ophthalmic (eye) BID 08/05/20 05/30/22 dropperette (Xiidra) multivitamin (Multiple Vitamins 1 tab PO DAILY #90 tabs 09/05/20 05/30/22 tablet) venlafaxine 75 mg capsule,extended 75 mg PO DAILY #90 caps 08/05/21 05/30/22 release 24 hr ipratropium 0.5 mg-albuterol 3 mg 3 ml inhalation Q6H PRN 12/25/21 05/30/22 (2.5 mg base)/3 mL nebulization soln quetiapine 25 mg tablet See Rx Instructions PO BID #30 tabs 12/29/21 05/30/22 albuterol sulfate 90 mcg/actuation 2 puff inhalation QID PRN 02/08/22 05/30/22 aerosol inhaler (Ventolin HFA) shortness of breath or wheezing #8.5 grams amlodipine 10 mg tablet 10 mg PO DAILY #90 tabs 02/08/22 05/30/22 buspirone 5 mg tablet 5 mg PO BID #60 tabs 02/08/22 05/30/22 folic acid 1 mg tablet 1 mg PO DAILY #90 tabs 02/08/22 05/30/22 melatonin 3 mg capsule 6 mg PO HS #180 caps 02/08/22 05/30/22 metoprolol tartrate 50 mg tablet 50 mg PO DAILY #90 tabs 02/08/22 05/30/22 mirtazapine 7.5 mg tablet 7.5 mg PO QHS #90 tabs 02/08/22 05/30/22 ondansetron 4 mg disintegrating 4 mg PO Q8H PRN nausea and 02/08/22 05/30/22 tablet vomiting #20 tabs pantoprazole 40 mg tablet,delayed 40 mg PO DAILY #90 tabs 02/08/22 05/30/22 release sucralfate 1 gram tablet 1 g PO BID #60 tabs 02/08/22 05/30/22 thiamine HCl (vitamin B1) 100 mg 100 mg PO DAILY #90 tabs 02/08/22 05/30/22 tablet valacyclovir 500 mg tablet 500 mg PO DAILY #90 tabs 02/08/22 05/30/22 (Valtrex) fluticasone propionate 50 2 spray NS daily prn #16 grams 03/06/22 05/30/22 mcg/actuation nasal spray,suspension budesonide 0.5 mg/2 mL suspension 0.5 mg (2 mL) inhalation DAILY #60 05/06/22 05/30/22 for nebulization (Pulmicort) mL melatonin 3 mg capsule 3 mg PO .pm PRN sleep #90 caps 05/12/22 05/30/22 cyanocobalamin (vitamin B-12) 500 1,000 mcg PO DAILY #0 tabs 05/21/22 05/30/22 mcg tablet (Vitamin B-12) ferrous sulfate 325 mg (65 mg 325 mg PO BID #30 tabs 05/21/22 05/30/22 iron) tablet pantoprazole 40 mg tablet,delayed 40 mg PO BID@0730,2000 #60 tabs 05/21/22 05/30/22 release doxycycline hyclate 100 mg capsule 100 mg PO BID #20 caps 05/27/22 05/30/22 metronidazole 500 mg tablet 500 mg PO TID #30 tabs 05/27/22 05/30/22 cefpodoxime 100 mg tablet 100 mg PO BID 7 days #14 tabs 05/29/22 05/30/22 Previous Rx's Medication Instructions Recorded carboxymethylcellulose sodium 0.5 1 drp OU Q4H WHILE AWAKE #30 ea 06/20/ % eye drops in a dropperette (Refresh Plus) multivitamin (Multiple Vitamins 1 tab PO DAILY #90 tabs 09/05/20 tablet) venlafaxine 75 mg capsule,extended 75 mg PO DAILY #90 caps 08/05/21 release 24 hr quetiapine 25 mg tablet See Rx Instructions PO BID #30 tabs 12/29/21 albuterol sulfate 90 mcg/actuation 2 puff inhalation QID PRN 02/08/22 aerosol inhaler (Ventolin HFA) shortness of breath or wheezing #8.5 grams amlodipine 10 mg tablet 10 mg PO DAILY #90 tabs 02/08/22 buspirone 5 mg tablet 5 mg PO BID #60 tabs 02/08/22 folic acid 1 mg tablet 1 mg PO DAILY #90 tabs 02/08/22 melatonin 3 mg capsule 6 mg PO HS #180 caps 02/08/22 metoprolol tartrate 50 mg tablet 50 mg PO DAILY #90 tabs 02/08/22 mirtazapine 7.5 mg tablet 7.5 mg PO QHS #90 tabs 02/08/22 ondansetron 4 mg disintegrating 4 mg PO Q8H PRN nausea and 02/08/22 tablet vomiting #20 tabs pantoprazole 40 mg tablet,delayed 40 mg PO DAILY #90 tabs 02/08/22 release sucralfate 1 gram tablet 1 g PO BID #60 tabs 02/08/22 thiamine HCl (vitamin B1) 100 mg 100 mg PO DAILY #90 tabs 02/08/22 tablet valacyclovir 500 mg tablet 500 mg PO DAILY #90 tabs 02/08/22 (Valtrex) fluticasone propionate 50 2 spray NS daily prn #16 grams 03/06/22 mcg/actuation nasal spray,suspension budesonide 0.5 mg/2 mL suspension 0.5 mg (2 mL) inhalation DAILY #60 05/06/22 for nebulization (Pulmicort) mL melatonin 3 mg capsule 3 mg PO .pm PRN sleep #90 caps 05/12/22 cyanocobalamin (vitamin B-12) 500 1,000 mcg PO DAILY #0 tabs 05/21/22 mcg tablet (Vitamin B-12) ferrous sulfate 325 mg (65 mg 325 mg PO BID #30 tabs 05/21/22 iron) tablet pantoprazole 40 mg tablet,delayed 40 mg PO BID@ #60 tabs 05/21/22 release doxycycline hyclate 100 mg capsule 100 mg PO BID #20 caps 05/27/22 metronidazole 500 mg tablet 500 mg PO TID #30 tabs 05/27/22 cefpodoxime 100 mg tablet 100 mg PO BID 7 days #14 tabs 05/29/22 Allergies Allergy/AdvReac Type Severity Reaction Status Date / Time Penicillins Allergy Mild Rash Verified 05/30/22 09:29 ramipril Allergy Unknown ITCHING Verified 05/30/22 09:29 meperidine [From Demerol] AdvReac Severe Nausea Verified 05/30/22 09:29 bupropion AdvReac Mild GI upset Verified 05/30/22 09:29 AMBER Inhibitors AdvReac Unknown COUGH Verified 05/30/22 09:29 alendronate sodium AdvReac Unknown GI Distress Verified 05/30/22 09:29 clarithromycin AdvReac Unknown intolerant Verified 05/30/22 09:29 paroxetine AdvReac Unknown Diarrhea Verified 05/30/22 09:29 General Stated Complaint: Abd Prob JORDAN: 2 Review of Systems All systems reviewed & are unremarkable except as noted in HPI and below Constitutional Constitutional: Denies chills, Denies fever(s) and Denies weakness Cardiovascular Cardiovascular: Denies chest pain and Denies dyspnea Respiratory Respiratory: Denies cough and Denies dyspnea Genitourinary Genitourinary: Denies dysuria Musculoskeletal Musculoskeletal: Denies joint swelling Integumentary/Breasts Skin/Breast: Denies rash Neurologic Neurologic: Denies weakness PFSH All Active Problems (Updated 05/30/22 @ 13:30 by Blaze Mccarthy MD) Urinary tract infection (Acute) Nausea & vomiting (Acute) Umbilical hernia (Acute) 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 ascites (Acute) Hyperbilirubinemia (Acute) Shortness of breath (Acute) Elevated blood pressure reading without diagnosis of hypertension (Acute) Left arm pain (Acute) Ambulatory dysfunction (Acute) Weakness (Acute) Incontinence (Acute) Urge incontinence (Acute) Anorexia (Acute) Headache (Acute) Onychomycosis (Acute) Depression (Chronic) Chest pain (Acute) Foot pain, right (Acute) Tendinitis of left rotator cuff (Acute) Macrocytosis (Acute 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 Leukopenia (Acute) Headache (Acute) Epigastric abdominal pain (Acute) Calcific tendinitis of left shoulder (Acute) Pulmonary mass (Acute) spiculated mass Pneumonia (Acute) Nausea & vomiting (Acute) Depression with suicidal ideation (Acute) Alcohol abuse (Chronic) Diarrhea (Acute) Epigastric pain (Acute) Nausea and vomiting (Acute) Dehydration (Acute) Hypokalemia (Acute) Discharge planning issues (Acute) C. difficile colitis (Acute) Palliative care patient (Acute) Difficult intravenous access (Acute) Multiple IV attempts, usually requires ultrasound placement. PTSD (post-traumatic stress disorder) (Acute) Anemia (Chronic) Depression (Chronic) Foot pain, right (Acute) T12 compression fracture (Acute) Presacral mass (Chronic) Deviated nasal septum (Acute) Frequent falls (Chronic) Head injury (Acute) Ambulatory dysfunction (Chronic) Shoulder pain, right (Chronic) DVT prophylaxis (Acute) Suicidal ideation (Acute) Dry eye (Acute) Pruritus (Acute) Dystrophic nail (Acute) AMBER (acute kidney injury) (Acute) Iron deficiency anemia (Chronic) Alcohol abuse (Chronic) Hypomagnesemia (Chronic) Discharge planning issues (Acute) UTI (urinary tract infection) (Acute) Fall (Acute) Atelectasis of left lung (Chronic) Advance directive on file (Acute) Nodule of upper lobe of right lung (Acute ~09/13/18) 09/13/18 [facility]; 12mm SPICULATED -kb Cataract (Chronic 11/07/15) Hypertension (Chronic) high today; she will check readings at home Hyperlipidemia (Chronic) Back pain, chronic (Chronic) Depression (Chronic) Osteopenia (Chronic) Medical History Adjustment disorder with depressed mood Alcoholic ketosis Anemia Cervical radicular pain neck pain and [facility] 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) pls refrain from alcohol Chronic alcoholism she will not stop drinking unless she checks with me, so that we can help her avert withdrawal I do not think she is capable on her own--she would need placement to achieve required goal of 3 months of sobriety Chronic diarrhea Closed right humeral fracture Corneal ulcer, right (~08/23/18) 08/23/18; UV-kb Fracture of humerus, left, closed Genital herpes simplex recurrent gential; suppressive Valtrex GERD (gastroesophageal reflux disease) GI bleed (12/20/16) Hypertension Hypokalemia Hypomagnesemia Incidental lung nodule, greater than or equal to 8mm 1cm, spiculated, stable for many years, recommend f/u in 6 mo Multiple rib fractures 03/11/19 [facility] Non-cardiac chest pain (09/21/16) [facility] 09/21/16 NEGATIVE MP Osteoarthritis Palliative care patient (03/21/17) Pancreatitis, alcoholic, acute Peripheral edema Photophobia of right eye Pleural effusion on left 03/11/19 [facility] Presacral mass (~09/15/18) 09/15/18 [facility] Sciatica right, epidural injuections [facility] Tubular adenoma of colon (01/28/17) Urinary incontinence 01/24/13 urethral suspension and sling at [facility] (bladder suspension 1991) 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 Bladder repair. Repair bladder injury, simple Family History Mother No problems noted. Father , DROWNED at age 50. No problems noted. Sister Personal history of malignant neoplasm MELANOMA Sister No problems noted. Grandfather Personal history of malignant neoplasm STOMACH Grandfather Personal history of malignant neoplasm PROSTATE Grandmother Heart disease NM Acute ill-defined cerebrovascular disease Grandmother Personal history of malignant neoplasm UTERINE Aunt , NM Heart disease NM Aunt , NM Heart disease Brother No problems noted. Social History Smoking/Tobacco Use Status: Former Tobacco Use Quit Date: 08/05/20 Smoking risk assessment performed?: Yes Alcohol Intake: current Alcohol Intake frequency: 3 or more drinks per day Alcohol type: hard liquor Drug use: Never Substance use type: does not use Details: patient states has not had anything to drink for about 5 weeks. patient denies withdrawl symptoms. Current gender identity: female Do you feel safe at home: Yes Do you feel safe in your relationship?: Yes Exam Const General: no acute distress Orientation: alert HENMT Head: normal to inspection Ears: external ears normal General nose exam: external nose normal Mouth: moist mucous membranes Eyes General: appearance normal, both eyes and all related structures Neck Neck: normal visual inspection Resp Effort & Inspection: normal respiratory effort and able to speak in complete sentences Cardio Rate: regular rate GI Palpation: no guarding and ascites Skin General skin exam: no rashes or lesions noted Neuro General: patient alert and patient oriented x3 Extrem General: normal to inspection Psych Mental Status: mental status grossly normal Course Vital Signs Vital signs: Vital Signs Temperature 36.7 C 05/30/22 09:19 Pulse 105 H 05/30/22 09:19 Respiratory Rate 24 05/30/22 09:19 Blood Pressure 159/79 H 05/30/22 09:19 Pulse Oximetry 96 05/30/22 09:19 Temperature 36.7 C 05/30/22 09:19 Temperature Source Tympanic 05/30/22 09:19 Pulse 105 H 05/30/22 09:19 Respiratory Rate 24 05/30/22 09:19 Respiratory Effort Non-Labored 05/30/22 09:33 Blood Pressure 159/79 H 05/30/22 09:19 Blood Pressure Position Supine 05/30/22 09:19 Pulse Oximetry 96 05/30/22 09:19 Oxygen Delivery Method Room Air 05/30/22 09:19 Oxygen Flow Rate 0 05/30/22 09:19 Pain Level 7 05/30/22 09:33 Lab/Test Results Lab/Test Results: 05/30/22 09:19 Blood Blood Culture - Pending 05/30/22 09:19 Blood Blood Culture - Pending Laboratory Tests Range/Units 05/30/22 09:45 COVID-19 Source Nasal/Nares Procedures Paracentesis Time Out Performed: Yes Local Anesthetic: Lidocaine 1% Amount of anesthesia used (mL): 5 Fluid: cloudy and Sent to Lab for Analysis Post Procedure Exam: awake, alert, normal BP, normal HR and normal SpO2 Patient Tolerated Procedure: well Complications: none
[2022-05-30] MEDS: Normal Saline 1,000 ML 1000 ML IV (10:09)
[2022-05-30] MEDS: Ondansetron 4 MG/2 ML VIAL IVP (10:10)
[2022-05-30 10:13] LABS: Abs Immature Grans 0.02 10^3/uL (0.0-0.06); Absolute Basophil Count 0.02 10^3/uL (0.0-0.2); Absolute Eosinophil Count 0.01 10^3/uL (0.0-0.7); Absolute Lymphocyte Count 0.69 10^3/uL (1.2-3.4); Absolute Monocyte Count 0.21 10^3/uL (0.1-0.8); Absolute Neutrophil Count 3.91 10^3/uL (1.2-6.7); Basophils % 0.4; Eosinophils % 0.2; HCT 31.5 % (36.0-46.0); HGB 9.8 g/dL (11.2-15.7); Immature Grans % 0.4; Lymphocytes % 14.2; MCH 27.2 pg (27.0-33.0); MCHC 31.1 % (32.0-36.0); MCV 88 fL (80-95); MPV 8.9 fL (8.0-11.0); Monocytes % 4.3; Neutrophils % 80.5; Platelet Count 138 10^3/uL (130-400); RDW 20.8 % (11.7-14.6); RDW-SD 65.1 fL; WBC 4.86 10^3/uL (4.4-10.8)
[2022-05-30 10:29] LABS: INR 1.2 (0.9-1.1); PTT Activated 26.2 sec (21.0-27.5); Prothrombin Time 11.6 sec (9.3-11.0)
[2022-05-30 10:32] LABS: Bilirubin, Direct 0.4 mg/dL (0.0-0.2)
[2022-05-30 10:33] LABS: COVID-19 PCR Negative (Negative)
[2022-05-30 10:33] LABS: ALT 24 U/L (14-59); AST 24 U/L (15-37); Albumin 3.1 g/dL (3.4-5.0); Alkaline Phosphatase 112 U/L (46-116); Anion Gap 5.9 mmol/L (3-11); BUN 11 mg/dL (7-18); Bilirubin, Total 1.6 mg/dL (0.2-1.0); CO2 29.1 mmol/L (21.0-32.0); CREATININE 0.9 mg/dL (0.55-1.02); Calcium 9.4 mg/dL (8.5-10.1); Chloride 104 mmol/L (98-107); Estimated GFR 66.26 (mL/min/1.73m2); Glucose 144 mg/dL (74-106); Magnesium 1.6 mg/dL (1.8-2.4); Potassium 3.8 mmol/L (3.5-5.1); Sodium 139 mmol/L (136-145); Total Protein 6.3 g/dL (6.4-8.2)
[2022-05-30 10:36] LABS: ETHANOL BLOOD < 3.0 mg/dL (<10)
[2022-05-30] MEDS: MAGNESIUM SULFATE 2 GM/50 ML BAG IVPB (10:55)
[2022-05-30 12:24] LABS: Clarity Clear; Source Ascitic
[2022-05-30 12:25] LABS: Mononuclear Cells 86 %; Nucleated Cells 270 uL (0); Polynuclear Cells 14 %
[2022-05-30] MEDS: Acetaminophen 650 MG SUPP PR (12:48)
--- NOTE | 2022-05-30 12:59 | NUR.NOTE ---
Patient going to be admitted. Prior to admission, stated she could have a meal. tray ordered.Nursing Note:
[2022-05-30] MEDS: Lactated Ringers 1,000 ML 75 ML IV (16:20)
[2022-05-30] MEDS: Heparin 5,000 UNITS/ML VIAL 5000 UNITS SC (16:20)
[2022-05-30] MEDS: Refresh PLUS Eye Drops 0.4ml OU ×2 (17:22→20:09)
[2022-05-30 18:06] LABS: Albumin, Body FLuid 1.9 g/dL (See Note); Glucose, Fluid 136 mg/dL (See Note)
[2022-05-30] MEDS: MORPHine 2 MG/ML SYR IVP (20:09)
[2022-05-30] MEDS: Normal Saline Flush 10 ML SYR IVP (20:10)
[2022-05-30] MEDS: Doxycycline Hyclate 100 MG CAP PO (20:10)
[2022-05-30] MEDS: busPIRone 5 MG TAB PO (20:10)
[2022-05-30] MEDS: QUEtiapine 25 MG TAB 12.5 MG PO (20:10)
[2022-05-30] MEDS: Ferrous Sulfate 325 MG TAB PO (20:10)
[2022-05-30] MEDS: LORazepam 1 MG TAB 2 MG PO (20:10)
[2022-05-30] MEDS: Melatonin 3 MG TAB PO (21:47)
[2022-05-30] MEDS: Mirtazapine 15 MG TAB 7.5 MG PO (21:47)
--- NOTE | 2022-05-31 | DI.NM_ITS ---
Exam(s) SD HEPATOBILIARY SCAN GRP EXAM: SD HEPATOBILIARY SCAN GRP CLINICAL HISTORY: rule out bile leak. TECHNIQUE: Injected dose: 5 mCi Tc-99 mebrofenin Initial dynamic images: 60 minutes 70 minutes delayed images.. COMPARISON: [facility] HEPATOBILIARY SCAN GRP from 05/17/[address] ABDOMEN PELVIS W from 05/28/2022 FINDINGS: Normal hepatic transit time. Prompt excretion into the small bowel. No abnormal radiopharmaceutical p ooling to suggest bile leak. IMPRESSION: 1. No evidence of bile leak.
--- NOTE | 2022-05-31 | DI.US_ITS ---
Exam(s) US ABDOMEN LIMITED EXAM: US ABDOMEN LIMITED CLINICAL HISTORY: ascites TECHNIQUE: Ultrasound abdomen performed using standard protocol. COMPARISON: CT CT ABDOMEN PELVIS W from 05/28/2022 FINDINGS: A limited exam was performed to evaluate for ascites. Ascites is noted in all 4 quadrants. IMPRESSION: Moderate quantity of ascites. DATA REPOSITORY:
[2022-05-31] MEDS: Refresh PLUS Eye Drops 0.4ml OU ×5 (00:33→19:33)
[2022-05-31 00:35] VITALS: BP 160/86; PULSE 92; RESP 14; TEMP 36.5; O2SAT 92
[2022-05-31] MEDS: Heparin 5,000 UNITS/ML VIAL 5000 UNITS SC ×2 (03:40→16:06)
[2022-05-31 03:52] VITALS: BP 170/84; PULSE 93; RESP 16; TEMP 36.6; O2SAT 95
[2022-05-31 04:05] VITALS: PULSE 92; RESP 2; RESP 20; RESP 4; RESP 6; O2SAT 93
[2022-05-31] MEDS: Albuterol/Ipratropium 3 ML UPD VIAL IH (04:05)
[2022-05-31] MEDS: Lactated Ringers 1,000 ML 75 ML IV (04:11)
[2022-05-31 07:13] LABS: Abs Immature Grans 0.01 10^3/uL (0.0-0.06); Absolute Basophil Count 0.01 10^3/uL (0.0-0.2); Absolute Lymphocyte Count 0.74 10^3/uL (1.2-3.4); Absolute Monocyte Count 0.23 10^3/uL (0.1-0.8); Absolute Neutrophil Count 1.82 10^3/uL (1.2-6.7); Basophils % 0.4; HGB 9.1 g/dL (11.2-15.7); Immature Grans % 0.4; Lymphocytes % 26.3; MCH 27.6 pg (27.0-33.0); MCHC 30.3 % (32.0-36.0); MCV 91 fL (80-95); MPV 9.4 fL (8.0-11.0); Monocytes % 8.2; Neutrophils % 64.7; Platelet Count 107 10^3/uL (130-400); RDW 20.9 % (11.7-14.6); RDW-SD 67.7 fL; WBC 2.81 10^3/uL (4.4-10.8)
--- NOTE | 2022-05-31 07:28 | W.MEDCONSULT ---
Date of service: 05/31/22 Time of Service: 07:28 Assessment and Plan Assessment and plan (1) Nausea & vomiting: Status: Acute Assessment and plan: I suspect this was Leticia's reaction to metronidazole while drinking alcohol. At this point, there is no evidence of an acute intraabdominal process. I agree with protonix and carafate because alcoholic gastritis is a possibility. Clinically, does not have SBP, but her WBC in the peritoneal fluid was borderline. Cx w/ no growth. Will monitor. Trialing PO diet. (2) Animal bite of right hand with infection: Status: Acute Assessment and plan: The patient may have had a disulfurum reaction to the regimen she was prescribed at the [facility]. Discussed with pharmacy: Leticia does not know if it was cat scratch, cat bite, or both. For this reason, will treat with cipro + clindamycin, which should cover both. Will also start a probiotic. (3) Cirrhosis of liver with ascites: Status: Acute Assessment and plan: Await peritoneal fluid culture. D/c IVF. Low sodium diet. May require a larger volume of paracenthesis. (4) Alcohol abuse: Status: Chronic Assessment and plan: Continue thiamine and monitoring for w/d. (5) DVT prophylaxis: Status: Acute Assessment and plan: SC heparin (6) Discharge planning issues: Status: Acute Assessment and plan: Full code History of Present Illness History of Present Illness Chief Complaint: nausea/vomiting after starting an antibiotic for a cat scratch or bite Narrative: Ms Ingram is a 77 year old female with PMHx of alcohol abuse, alcoholic cirrhosis, chronic anemia, depression, who is s/p laparascopic cholecystectomy on 05/19/22, who was admitted to the general surgical service yesterday for a suspected biliary leak, having presented with nausea and vomiting. Leticia states that she was trying to give her cat a bath but changed her mind when the cat either scratched her or bit her. She is not sure exactly which day this happened. The following day the patient noted worsening swelling and redness of her right hand, wrist, and forearm and also had a subjective fever. She went to the [facility] where she was prescribed doxycycline and metronidazole for the cat bite. Unfortunately, it does not sound like Leticia stopped drinking alcohol and developed nausea and vomiting at home after starting antibiotics while, it appears, still drinking alcohol. She presented to [facility] ED yesterday with chief complaints of n/v and was admitted to general surgery for a suspected billiary leak, which was ruled out. Hospitalists were consulted for decompensated cirrhosis. The patient denies chest pain, shortness of breath, abdominal pain now. She does endorse abdominal distention. Review of Systems All systems reviewed & are unremarkable except as noted in HPI and below PFSH All Active Problems (Updated 05/31/22 @ 15:36 by Laly Dumont MD) Discharge planning issues (Acute) DVT prophylaxis (Acute) Cirrhosis of liver with ascites (Acute) Animal bite of right hand with infection (Acute) Urinary tract infection (Acute) Nausea & vomiting (Acute) Umbilical hernia (Acute) 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 ascites (Acute) Hyperbilirubinemia (Acute) Shortness of breath (Acute) Elevated blood pressure reading without diagnosis of hypertension (Acute) Left arm pain (Acute) Ambulatory dysfunction (Acute) Weakness (Acute) Incontinence (Acute) Urge incontinence (Acute) Anorexia (Acute) Headache (Acute) Onychomycosis (Acute) Depression (Chronic) Chest pain (Acute) Foot pain, right (Acute) Tendinitis of left rotator cuff (Acute) Macrocytosis (Acute 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 Leukopenia (Acute) Headache (Acute) Epigastric abdominal pain (Acute) Calcific tendinitis of left shoulder (Acute) Pulmonary mass (Acute) spiculated mass Pneumonia (Acute) Nausea & vomiting (Acute) Depression with suicidal ideation (Acute) Alcohol abuse (Chronic) Diarrhea (Acute) Epigastric pain (Acute) Nausea and vomiting (Acute) Dehydration (Acute) Hypokalemia (Acute) Discharge planning issues (Acute) C. difficile colitis (Acute) Palliative care patient (Acute) Difficult intravenous access (Acute) Multiple IV attempts, usually requires ultrasound placement. PTSD (post-traumatic stress disorder) (Acute) Anemia (Chronic) Depression (Chronic) Foot pain, right (Acute) T12 compression fracture (Acute) Presacral mass (Chronic) Deviated nasal septum (Acute) Frequent falls (Chronic) Head injury (Acute) Ambulatory dysfunction (Chronic) Shoulder pain, right (Chronic) DVT prophylaxis (Acute) Suicidal ideation (Acute) Dry eye (Acute) Pruritus (Acute) Dystrophic nail (Acute) AMBER (acute kidney injury) (Acute) Iron deficiency anemia (Chronic) Alcohol abuse (Chronic) Hypomagnesemia (Chronic) Discharge planning issues (Acute) UTI (urinary tract infection) (Acute) Fall (Acute) Atelectasis of left lung (Chronic) Advance directive on file (Acute) Nodule of upper lobe of right lung (Acute ~09/13/18) 09/13/18 [facility]; 12mm SPICULATED -kb Cataract (Chronic 11/07/15) Hypertension (Chronic) high today; she will check readings at home Hyperlipidemia (Chronic) Back pain, chronic (Chronic) Depression (Chronic) Osteopenia (Chronic) Medical History Adjustment disorder with depressed mood Alcoholic ketosis Anemia Cervical radicular pain neck pain and [facility] 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) pls refrain from alcohol Chronic alcoholism she will not stop drinking unless she checks with me, so that we can help her avert withdrawal I do not think she is capable on her own--she would need placement to achieve required goal of 3 months of sobriety Chronic diarrhea Closed right humeral fracture Corneal ulcer, right (~08/23/18) 08/23/18; [facility] Fracture of humerus, left, closed Genital herpes simplex recurrent gential; suppressive Valtrex GERD (gastroesophageal reflux disease) GI bleed (12/20/16) Hypertension Hypokalemia Hypomagnesemia Incidental lung nodule, greater than or equal to 8mm 1cm, spiculated, stable for many years, recommend f/u in 6 mo Multiple rib fractures 03/11/19 [facility] Non-cardiac chest pain (09/21/16) [facility] [place] 09/21/16 NEGATIVE MP Osteoarthritis Palliative care patient (03/21/17) Pancreatitis, alcoholic, acute Peripheral edema Photophobia of right eye Pleural effusion on left 03/11/19 [facility] Presacral mass (~09/15/18) 09/15/18 [facility] Sciatica right, epidural injuections [facility] Tubular adenoma of colon (01/28/17) Urinary incontinence 01/24/13 urethral suspension and sling at [facility] [place] (bladder suspension 1991) 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 Bladder repair. Repair bladder injury, simple Family History Mother No problems noted. Father , DROWNED at age 50. No problems noted. Sister Personal history of malignant neoplasm MELANOMA Sister No problems noted. Grandfather Personal history of malignant neoplasm STOMACH Grandfather Personal history of malignant neoplasm PROSTATE Grandmother Heart disease [place] Acute ill-defined cerebrovascular disease Grandmother Personal history of malignant neoplasm UTERINE Aunt , [place] Heart disease [place] Aunt , [place] Heart disease Brother No problems noted. Social History Smoking/Tobacco Use Status: Former Tobacco Use Quit Date: 08/05/20 Smoking risk assessment performed?: Yes Alcohol Intake: current Alcohol Intake frequency: 3 or more drinks per day Alcohol type: hard liquor Drug use: Never Substance use type: does not use Details: patient states has not had anything to drink for about 5 weeks. patient denies withdrawl symptoms. Current gender identity: female Do you feel safe at home: Yes Do you feel safe in your relationship?: Yes Exam Narrative Exam Narrative: General: Pleasant female who is forgetful, A&Ox2, does not appear ill Neurological: A&Ox2, no focal deficits, forgetful Psychiatric: Appropriate speech pattern/content Skin: R hand with mild erythema and evidence of what looks like animal bite or scratches with a large ecchymosis underlying this HEENT: Atraumatic, normocephalic, EOMI, MMM, clear oropharynx, no submandibular or cervical lymphadenopathy, no goiter or JVD Cardiovascular: RRR, no m/r/g Lungs: CTAB Gastrointestinal: soft, distended with ascites Genitourinary: deferred Extremities: no edema BLEs, see skin exam above Results Last Vital Signs Temp 36.6 C 05/31/22 03:52 Pulse 92 H 05/31/22 04:05 Resp 20 05/31/22 04:05 BP 170/84 H 05/31/22 03:52 Pulse Ox 93 05/31/22 04:05 Labs Result diagrams: 05/31/22 05:42 05/31/22 07:45 Labs: Laboratory Results - last 24 hr 05/30/22 05/30/22 05/30/22 09:45 09:50 09:50 WBC 4.86 RBC 3.60 L Hgb 9.8 L Hct 31.5 L MCV 88 MCH 27.2 MCHC 31.1 L RDW 20.8 H Plt Count 138 MPV 8.9 Immature Gran % 0.4 Neutrophils % 80.5 Lymphocytes % 14.2 Monocytes % 4.3 Eosinophils % 0.2 Basophils % 0.4 Nucleated RBC % 0.0 Absolute Neutrophils 3.91 Absolute Lymphocytes 0.69 L Absolute Monocytes 0.21 Absolute Eosinophils 0.01 Absolute Basophils 0.02 PT INR APTT Sodium 139 Potassium 3.8 Chloride 104 Carbon Dioxide 29.1 Anion Gap 5.9 BUN 11 Creatinine 0.9 Est GFR (CKD-EPI 2020) 66.26 Glucose 144 H Calcium 9.4 Magnesium 1.6 L Total Bilirubin 1.6 H Conjugated Bilirubin AST 24 ALT 24 Alkaline Phosphatase 112 Total Protein 6.3 L Albumin 3.1 L Fluid Source Fluid Color Fluid Clarity Fluid WBC Fld Polynuclear WBCs % Fluid Mononuclear Cell Ethyl Alcohol < 3.0 COVID-19 Source Nasal/Nares SARS-CoV-2 (PCR) Negative 05/30/22 05/30/22 05/30/22 09:50 09:50 10:00 WBC RBC Hgb Hct MCV MCH MCHC RDW Plt Count MPV Immature Gran % Neutrophils % Lymphocytes % Monocytes % Eosinophils % Basophils % Nucleated RBC % Absolute Neutrophils Absolute Lymphocytes Absolute Monocytes Absolute Eosinophils Absolute Basophils PT 11.6 H INR 1.2 H APTT 26.2 Sodium Potassium Chloride Carbon Dioxide Anion Gap BUN Creatinine Est GFR (CKD-EPI 2020) Glucose Calcium Magnesium Total Bilirubin Cancelled Conjugated Bilirubin 0.4 H AST ALT Alkaline Phosphatase Total Protein Albumin Fluid Source Fluid Color Fluid Clarity Fluid WBC Fld Polynuclear WBCs % Fluid Mononuclear Cell Ethyl Alcohol COVID-19 Source SARS-CoV-2 (PCR) 05/30/22 10:30 WBC RBC Hgb Hct MCV MCH MCHC RDW Plt Count MPV Immature Gran % Neutrophils % Lymphocytes % Monocytes % Eosinophils % Basophils % Nucleated RBC % Absolute Neutrophils Absolute Lymphocytes Absolute Monocytes Absolute Eosinophils Absolute Basophils PT INR APTT Sodium Potassium Chloride Carbon Dioxide Anion Gap BUN Creatinine Est GFR (CKD-EPI 2020) Glucose Calcium Magnesium Total Bilirubin Conjugated Bilirubin AST ALT Alkaline Phosphatase Total Protein Albumin Fluid Source Ascitic Fluid Color Yellow Fluid Clarity Clear Fluid WBC 270 Fld Polynuclear WBCs % 14 Fluid Mononuclear Cell 86 Ethyl Alcohol COVID-19 Source SARS-CoV-2 (PCR) Imaging Additional studies: HIDA: 1. No evidence of bile leak.
[2022-05-31 07:31] LABS: Anisocytosis 2+; Diff Comment RBC Morph Reviewed
[2022-05-31 07:45] VITALS: RESP 20; O2SAT 93
[2022-05-31] MEDS: busPIRone 5 MG TAB PO ×2 (07:53→19:32)
[2022-05-31] MEDS: Pantoprazole 40 MG TABCR PO (07:53)
[2022-05-31] MEDS: Sucralfate 1 GM TAB PO ×2 (07:53→16:07)
[2022-05-31] MEDS: Ferrous Sulfate 325 MG TAB PO ×2 (07:53→19:33)
[2022-05-31] MEDS: amLODIPine 10 MG TAB PO (07:53)
[2022-05-31] MEDS: Cyanocobalamin 500 MCG TAB 1000 MCG PO (07:53)
[2022-05-31] MEDS: QUEtiapine 25 MG TAB 12.5 MG PO ×2 (07:53→19:32)
[2022-05-31] MEDS: Thiamine 100 MG TAB PO (07:54)
[2022-05-31] MEDS: Folic Acid 1 MG TAB PO (07:54)
[2022-05-31] MEDS: Venlafaxine 75 MG CAPCR PO (07:54)
[2022-05-31] MEDS: Multivitamin TAB 1 TAB PO (07:54)
[2022-05-31] MEDS: Metoprolol 50 MG TAB PO (07:54)
[2022-05-31] MEDS: Doxycycline Hyclate 100 MG CAP PO (07:54)
[2022-05-31 08:04] VITALS: BP 175/83; PULSE 102; RESP 18; TEMP 37.2; O2SAT 94
[2022-05-31 08:08] LABS: ALT 29 U/L (14-59); AST 41 U/L (15-37); Albumin 2.6 g/dL (3.4-5.0); Alkaline Phosphatase 124 U/L (46-116); Anion Gap 7.1 mmol/L (3-11); BUN 10 mg/dL (7-18); Bilirubin, Total 0.9 mg/dL (0.2-1.0); CO2 27.9 mmol/L (21.0-32.0); CREATININE 0.9 mg/dL (0.55-1.02); Calcium 8.7 mg/dL (8.5-10.1); Chloride 107 mmol/L (98-107); Estimated GFR 66.26 (mL/min/1.73m2); Glucose 119 mg/dL (74-106); Potassium 3.5 mmol/L (3.5-5.1); Sodium 142 mmol/L (136-145); Total Protein 5.4 g/dL (6.4-8.2)
--- NOTE | 2022-05-31 08:09 | PCNE_ITS ---
Date of service: 05/31/22 Time of Service: 08:09 History of Present Illness History of Present Illness Chief Complaint: Nausea and vomiting Narrative: Leticia is a 77-year-old woman who is well-known to me. I see her for palliative care at home and also in the clinic. She has had multiple inpatient admissions. Most recently she was here about a week ago and due to continued problems with nausea and vomiting had a cholecystectomy. She is back today with the same. She is admitted to the surgical team, hospitalist has been consulted. Leticia states that she feels awful. She also tells me that she has not been drinking alcohol. Consults Consult date: 05/31/22 Requesting physician: Laly Dumont Assessment and Plan Assessment and plan (1) Cirrhosis of liver with ascites: Status: Acute (2) Nausea & vomiting: Status: Acute (3) Weakness: Status: Acute (4) Advance care planning: Status: Acute Assessment and plan: Leticia is a 77-year-old woman with a long history of alcoholism. She is now has ascites. I like to discuss with her consideration of going on hospice but want her to be more comfortable and awake before we have this discussion Please note I have spoken to Leticia on several occasions and she is always wanted to be a DNR/DNI. My most recent time was 1 week ago. I recommend that her CODE STATUS be in alignment with her wishes Review of Systems Narrative: She states right now that she is not short of breath, she is still nauseous, her abdomen feels worse than it ever has. PFSH All Active Problems (Updated 06/01/22 @ 07:50 by Genoveva Young MD, [place]) Advance care planning (Acute) Discharge planning issues (Acute) DVT prophylaxis (Acute) Cirrhosis of liver with ascites (Acute) Animal bite of right hand with infection (Acute) Urinary tract infection (Acute) Nausea & vomiting (Acute) Umbilical hernia (Acute) 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 ascites (Acute) Hyperbilirubinemia (Acute) Shortness of breath (Acute) Elevated blood pressure reading without diagnosis of hypertension (Acute) Left arm pain (Acute) Ambulatory dysfunction (Acute) Weakness (Acute) Incontinence (Acute) Urge incontinence (Acute) Anorexia (Acute) Headache (Acute) Onychomycosis (Acute) Depression (Chronic) Chest pain (Acute) Foot pain, right (Acute) Tendinitis of left rotator cuff (Acute) Macrocytosis (Acute 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 Leukopenia (Acute) Headache (Acute) Epigastric abdominal pain (Acute) Calcific tendinitis of left shoulder (Acute) Pulmonary mass (Acute) spiculated mass Pneumonia (Acute) Nausea & vomiting (Acute) Depression with suicidal ideation (Acute) Alcohol abuse (Chronic) Diarrhea (Acute) Epigastric pain (Acute) Nausea and vomiting (Acute) Dehydration (Acute) Hypokalemia (Acute) Discharge planning issues (Acute) C. difficile colitis (Acute) Palliative care patient (Acute) Difficult intravenous access (Acute) Multiple IV attempts, usually requires ultrasound placement. PTSD (post-traumatic stress disorder) (Acute) Anemia (Chronic) Depression (Chronic) Foot pain, right (Acute) T12 compression fracture (Acute) Presacral mass (Chronic) Deviated nasal septum (Acute) Frequent falls (Chronic) Head injury (Acute) Ambulatory dysfunction (Chronic) Shoulder pain, right (Chronic) DVT prophylaxis (Acute) Suicidal ideation (Acute) Dry eye (Acute) Pruritus (Acute) Dystrophic nail (Acute) AMBER (acute kidney injury) (Acute) Iron deficiency anemia (Chronic) Alcohol abuse (Chronic) Hypomagnesemia (Chronic) Discharge planning issues (Acute) UTI (urinary tract infection) (Acute) Fall (Acute) Atelectasis of left lung (Chronic) Advance directive on file (Acute) Nodule of upper lobe of right lung (Acute ~09/13/18) 09/13/18 [facility]; 12mm SPICULATED -kb Cataract (Chronic 11/07/15) Hypertension (Chronic) high today; she will check readings at home Hyperlipidemia (Chronic) Back pain, chronic (Chronic) Depression (Chronic) Osteopenia (Chronic) Medical History Adjustment disorder with depressed mood Alcoholic ketosis Anemia Cervical radicular pain neck pain and [facility] 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) pls refrain from alcohol Chronic alcoholism she will not stop drinking unless she checks with me, so that we can help her avert withdrawal I do not think she is capable on her own--she would need placement to achieve required goal of 3 months of sobriety Chronic diarrhea Closed right humeral fracture Corneal ulcer, right (~08/23/18) 08/23/18; [facility] Fracture of humerus, left, closed Genital herpes simplex recurrent gential; suppressive Valtrex GERD (gastroesophageal reflux disease) GI bleed (12/20/16) Hypertension Hypokalemia Hypomagnesemia Incidental lung nodule, greater than or equal to 8mm 1cm, spiculated, stable for many years, recommend f/u in 6 mo Multiple rib fractures 03/11/19 [facility] Non-cardiac chest pain (09/21/16) [facility] [place] NEGATIVE MP Osteoarthritis Palliative care patient (03/21/17) Pancreatitis, alcoholic, acute Peripheral edema Photophobia of right eye Pleural effusion on left 03/11/19 [facility] Presacral mass (~09/15/18) 09/15/18 [facility] Sciatica right, epidural injuections [facility] Tubular adenoma of colon (01/28/17) Urinary incontinence 01/24/13 urethral suspension and sling at [facility] [place]bladder suspension 1991) 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 Bladder repair. Repair bladder injury, simple Family History Mother No problems noted. Father , DROWNED at age 50. No problems noted. Sister Personal history of malignant neoplasm MELANOMA Sister No problems noted. Grandfather Personal history of malignant neoplasm STOMACH Grandfather Personal history of malignant neoplasm PROSTATE Grandmother Heart disease [place] Acute ill-defined cerebrovascular disease Grandmother Personal history of malignant neoplasm UTERINE Aunt , [place] Heart disease [place] Aunt , [place] Heart disease Brother No problems noted. Social History Smoking/Tobacco Use Status: Former Tobacco Use Quit Date: 08/05/20 Smoking risk assessment performed?: Yes Alcohol Intake: current Alcohol Intake frequency: 3 or more drinks per day Alcohol type: hard liquor Drug use: Never Substance use type: does not use Details: patient states has not had anything to drink for about 5 weeks. patient denies withdrawl symptoms. Current gender identity: female Do you feel safe at home: Yes Do you feel safe in your relationship?: Yes Exam Narrative Exam Narrative: Lying in bed. She looks like she is uncomfortable and also wiped out. Her heart was tachycardic. Lungs shallow breaths. Abdomen was not tense but was tender. Results Last Vital Signs Temp 99.0 F 05/31/22 08:04 Pulse 102 H 05/31/22 08:04 Resp 18 05/31/22 08:04 BP 175/83 H 05/31/22 08:04 Pulse Ox 94 05/31/22 08:04 Labs Result diagrams: 05/31/22 05:42 05/31/22 07:45 Labs: Laboratory Results - last 24 hr 05/30/22 05/30/22 05/30/22 09:45 09:50 09:50 WBC 4.86 RBC 3.60 L Hgb 9.8 L Hct 31.5 L MCV 88 MCH 27.2 MCHC 31.1 L RDW 20.8 H Plt Count 138 MPV 8.9 Immature Gran % 0.4 Neutrophils % 80.5 Lymphocytes % 14.2 Monocytes % 4.3 Eosinophils % 0.2 Basophils % 0.4 Nucleated RBC % 0.0 Absolute Neutrophils 3.91 Absolute Lymphocytes 0.69 L Absolute Monocytes 0.21 Absolute Eosinophils 0.01 Absolute Basophils 0.02 RBC Morphology Anisocytosis PT INR APTT Sodium 139 Potassium 3.8 Chloride 104 Carbon Dioxide 29.1 Anion Gap 5.9 BUN 11 Creatinine 0.9 Est GFR (CKD-EPI 2020) 66.26 Glucose 144 H Calcium 9.4 Magnesium 1.6 L Total Bilirubin 1.6 H Conjugated Bilirubin AST 24 ALT 24 Alkaline Phosphatase 112 Total Protein 6.3 L Albumin 3.1 L Fluid Source Fluid Color Fluid Clarity Fluid WBC Fld Polynuclear WBCs % Fluid Mononuclear Cell Ethyl Alcohol < 3.0 COVID-19 Source Nasal/Nares SARS-CoV-2 (PCR) Negative 05/30/22 05/30/22 05/30/22 09:50 09:50 10:00 WBC RBC Hgb Hct MCV MCH MCHC RDW Plt Count MPV Immature Gran % Neutrophils % Lymphocytes % Monocytes % Eosinophils % Basophils % Nucleated RBC % Absolute Neutrophils Absolute Lymphocytes Absolute Monocytes Absolute Eosinophils Absolute Basophils RBC Morphology Anisocytosis PT 11.6 H INR 1.2 H APTT 26.2 Sodium Potassium Chloride Carbon Dioxide Anion Gap BUN Creatinine Est GFR (CKD-EPI 2020) Glucose Calcium Magnesium Total Bilirubin Cancelled Conjugated Bilirubin 0.4 H AST ALT Alkaline Phosphatase Total Protein Albumin Fluid Source Fluid Color Fluid Clarity Fluid WBC Fld Polynuclear WBCs % Fluid Mononuclear Cell Ethyl Alcohol COVID-19 Source SARS-CoV-2 (PCR) 05/30/22 05/31/22 05/31/22 10:30 05:42 05:42 WBC 2.81 L RBC 3.30 L Hgb 9.1 L Hct 30.0 L MCV 91 MCH 27.6 MCHC 30.3 L RDW 20.9 H Plt Count 107 L MPV 9.4 Immature Gran % 0.4 Neutrophils % 64.7 Lymphocytes % 26.3 Monocytes % 8.2 Eosinophils % 0.0 Basophils % 0.4 Nucleated RBC % 0.0 Absolute Neutrophils 1.82 Absolute Lymphocytes 0.74 L Absolute Monocytes 0.23 Absolute Eosinophils 0.00 Absolute Basophils 0.01 RBC Morphology See Below Anisocytosis 2+ PT INR APTT Sodium Cancelled Potassium Cancelled Chloride Cancelled Carbon Dioxide Cancelled Anion Gap Cancelled BUN Cancelled Creatinine Cancelled Est GFR (CKD-EPI 2020) Cancelled Glucose Cancelled Calcium Cancelled Magnesium Total Bilirubin Cancelled Conjugated Bilirubin AST Cancelled ALT Cancelled Alkaline Phosphatase Cancelled Total Protein Cancelled Albumin Cancelled Fluid Source Ascitic Fluid Color Yellow Fluid Clarity Clear Fluid WBC 270 Fld Polynuclear WBCs % 14 Fluid Mononuclear Cell 86 Ethyl Alcohol COVID-19 Source SARS-CoV-2 (PCR) Imaging Additional studies: US FINDINGS: A limited exam was performed to evaluate for ascites.? Ascites is noted in all 4 quadrants.? IMPRESSION: Moderate quantity of ascites. Imaging Studies: HB INDINGS: Normal hepatic transit time. Prompt excretion into the small bowel. No abnormal radiopharmaceutical pooling to suggest bile leak. IMPRESSION: 1. No evidence of bile leak.
[2022-05-31] MEDS: Ondansetron 4 MG/2 ML VIAL IVP (08:39)
[2022-05-31] MEDS: Budesonide 0.5 MG/2 ML UPD VIAL IH (09:01)
[2022-05-31] MEDS: MAGNESIUM SULFATE 2 GM/50 ML BAG IVPB (09:49)
[2022-05-31 12:07] LABS: Bilirubin Small (Negative); Blood Negative (Negative); Clarity Clear (Clear); Glucose Negative (Negative); Ketones Negative (Negative); Leukocyte Esterase Trace (Negative); Nitrite Negative (Negative); Specific Gravity 1.025 (1.005-1.025); Urobilinogen 0.2 EU/dL (Up TO 0.2)
[2022-05-31 12:32] LABS: Bacteria Rare HPF (Negative); C & S Indicated? Yes; Casts 0-2 Hyaline LPF (Negative); Crystals Negative HPF (Negative); Epithelial Cells Rare HPF (Negative); Mucus Trace (Negative); RBC Negative HPF (0-2); WBC 0-2 HPF (0-5)
[2022-05-31 15:01] VITALS: BP 150/83; PULSE 87; RESP 18; TEMP 36.7; O2SAT 95
[2022-05-31] MEDS: Normal Saline Flush 10 ML SYR IVP (16:06)
[2022-05-31] MEDS: CIPROFLOXACIN 400 MG/200 ML BAG 200 MG IVPB (16:08)
--- NOTE | 2022-05-31 17:43 | INITIAL_ITS ---
- If Service Date Differs Date of service: 05/31/22 Time of Service: 17:43 Care Management Initial Assess REASON FOR HOSPITALIZATION:: nausea, vomiting, biliary leak PAST MEDICAL HISTORY/PAST SURGICAL HISTORY:: All Active Problems. Discharge planning issues (Acute). DVT prophylaxis (Acute). Cirrhosis of liver with ascites (Acute). Animal bite of right hand with infection (Acute). Urinary tract infection (Acute). Nausea & vomiting (Acute). Umbilical hernia (Acute). 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 ascites (Acute). Hyperbilirubinemia (Acute). Shortness of breath (Acute). Elevated blood pressure reading without diagnosis of hypertension (Acute). Left arm pain (Acute). Ambulatory dysfunction (Acute). Weakness (Acute). Incontinence (Acute). Urge incontinence (Acute). Anorexia (Acute). Headache (Acute). Onychomycosis (Acute). Depression (Chronic). Chest pain (Acute). Foot pain, right (Acute). Tendinitis of left rotator cuff (Acute). Macrocytosis (Acute 09/26/14). due to alcohol. Leukopenia (Acute). Headache (Acute). Epigastric abdominal pain (Acute). Calcific tendinitis of left shoulder (Acute). Pulmonary mass (Acute). spiculated mass. Pneumonia (Acute). Nausea & vomiting (Acute). Depression with suicidal ideation (Acute). Alcohol abuse (Chronic). Diarrhea (Acute). Epigastric pain (Acute). Nausea and vomiting (Acute). Dehydration (Acute). Hypokalemia (Acute). Discharge planning issues (Acute). C. difficile colitis (Acute). Palliative care patient (Acute). Difficult intravenous access (Acute). Multiple IV attempts, usually requires ultrasound placement. PTSD (post-traumatic stress disorder) (Acute). Anemia (Chronic). Depression (Chronic). Foot pain, right (Acute). T12 compression fracture (Acute). Presacral mass (Chronic). Deviated nasal septum (Acute). Frequent falls (Chronic). Head injury (Acute). Ambulatory dysfunction (Chronic). Shoulder pain, right (Chronic). DVT prophylaxis (Acute). Suicidal ideation (Acute). Dry eye (Acute). Pruritus (Acute). Dystrophic nail (Acute). AMBER (acute kidney injury) (Acute). Iron deficiency anemia (Chronic). Alcohol abuse (Chronic). Hypomagnesemia (Chronic). Discharge planning issues (Acute). UTI (urinary tract infection) (Acute). Fall (Acute). Atelectasis of left lung (Chronic). Advance directive on file (Acute). Nodule of upper lobe of right lung (Acute ~09/13/18). 09/13/18 [facility]; 12mm SPICULATED -kb. Cataract (Chronic 11/07/15). Hypertension (Chronic). high today; she will check readings at home. Hyperlipidemia (Chronic). Back pain, chronic (Chronic). Depression (Chronic). Osteopenia (Chronic). Medical History. Adjustment disorder with depressed mood. Alcoholic ketosis. Anemia. Cervical radicular pain. neck pain and DJD. [facility]. 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). pls refrain from alcohol. Chronic alcoholism. she will not stop drinking unless she checks with me, so that we can help her avert withdrawal. I do not think she is capable on her own--she would need placement to achieve required goal of 3 months of sobriety. Chronic diarrhea. Closed right humeral fracture. Corneal ulcer, right (~08/23/18). 08/23/18; [facility]. Fracture of humerus, left, closed. Genital herpes simplex. recurrent gential; suppressive Valtrex. GERD (gastroesophageal reflux disease). GI bleed (12/20/16). Hypertension. Hypokalemia. Hypomagnesemia. Incidental lung nodule, greater than or equal to 8mm. 1cm, spiculated, stable for many years, recommend f/u in 6 mo. Multiple rib fractures. 03/11/19 [facility]. Non-cardiac chest pain (09/21/16). [facility] 09/21/16 NEGATIVE MP. Osteoarthritis. Palliative care patient (03/21/17). Pancreatitis, alcoholic, acute. Peripheral edema. Photophobia of right eye. Pleural effusion on left. 03/11/19 [facility]. 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 09/15/18 [facility]. Sciatica. right, epidural injuections. [facility]. Tubular adenoma of colon (01/28/17). Urinary incontinence. 01/24/13 urethral suspension and sling at [facility]. (bladder suspension 1991). Vision loss of right eye. 08/17/18;[facility]-kb. Wernicke encephalopathy. Surgical History. Colonoscopy - MAC (01/28/17). EGD - MAC (12/20/16). History of bilateral ligation of fallo pian tubes. History of Surgical Procedure. a. Bladder repair. Repair bladder injury, simple PREVIOUS FUNCTIONAL STATUS/SOCIAL/FAMILY SUPPORTS:: Leticia lives alone in her jaime e in [place] with her dog and cats. She has a sister who takes care of her animals when she is hospitalized, and a homemaker, Marry, who visits her 3x/week for 2 hrs at a time. Her son Seth is her DPOA, although he lives in [place]. CURRENT FUNCTIONAL STATUS:: Leticia was sitting up in bed when CM met with her. She reported that after returning home from the hospital, her cat was missing. After looking all night, the cat appeared the next day. She gave the cat a bath, and it scratched or bit her. She went to express care, who prescribed her antibiotics. Per report, she continued to drink alcohol while taking this new medication, which led to her vomiting, which she came to the ED to address. She had ascites upon arrival, and had fluid removed. She stated that she feels much more comfortable after the fluid removal. She stated that she would like to return home soon, to be with her animals. She will have a palliative consultation while inpatient. CM will continue to follow. ADVANCE DIRECTIVES:: [employer] on file. Son, Seth, listed as agent and DPOA. Has patient been provided with info about the portal/API?: Yes Did the patient sign up for the portal?: Yes (active) CODE STATUS:: Full Code INSURANCE COVERAGE / FINANCIAL ISSUES:: [facility] MCR replacement CURRENT HOME/COMMUNITY SERVICES/EQUIPMENT:: Leticia owns a walker, a cane, and a toilet seat riser. She has a caregiver three days a week for two hours per day, in addition to MOW. PRIMARY CARE PHYSICIAN:: Lavelle Galindo POTENTIAL DISCHARGE NEEDS:: Evaluations for further needs, follow up appointme nts. PATIENT/FAMILY EDUCATION NEEDS:: Review of discharge instructions regarding medications, activity level, and follow up plan of care, and discussion of Ask Me Three. ANTICIPATED BARRIERS TO DISCHARGE:: None identified. TRANSPORTATION:: Via [facility] private vehicle. PLAN:: Anticipate Leticia will be discharged home when medically cleared by provider. She will follow up with her community providers and plan of care as directed. Leticia will transport home via [facility] private vehicle coordinated by CM. CM will continue to support Leticia and any discharge planning needs. Readmission - Within the Past 30 Days Yes or No: Y - Date of First Admission Date of 1st Admission: 05/13/22 - Date of this Admission Date of Admission: 05/30/22 This admission was: Through ED - Office Visit Since 1st Admission Have you seen your PCP in the office since discharge?: No Had an appointment Been Scheduled?: No - Speicalist Appointments Have you seen any other specialist since your 1st Admission?: No Date you saw the Specialist: scheduled surgical follow up 06/01/22 - I. Interview patient and/or Family Difficulty reaching your doctor or getting an office appt?: No Have you had trouble purchasing/ or taking medication?: No Have you had trouble with getting meals at home?: No Did you feel ready for discharge when you left the last time: Yes If patient did not receive services, were there orders at: No Reason there were no orders at discharge: Leticia declined HH services, which were offered. - ED visits How many ED visits in the past 12 months: 9 - Assessment for Readmission Summary of readmission circumstances, based upon interviews: Leticia stated that she felt ready for discharge when she left last week. She reported that since being home, events led her to go to express care (cat scratch), and the new medication prescribed (abx) made her sick. She returned to the ED when she became nauseas and was vomiting. She declined HH services on her previous discharge. CM will offer them on this admission.
[2022-05-31] MEDS: Clindamycin 300 MG CAP PO (19:31)
[2022-05-31] MEDS: LORazepam 1 MG TAB 2 MG PO (19:31)
--- NOTE | 2022-05-31 21:17 | W.PM.HP.N ---
Date of service: 05/31/22 Time of Service: 07:00 Assessment and Plan Assessment and plan (1) Cirrhosis of liver with ascites: Status: Acute Assessment and plan: I doubt that this is acute bile leak after cholecystectomy based on the character of the paracentesis effluent, as well as the diffuse nature of the ascites on the previous CAT scan. We can get a HIDA scan to rule it out for sure, but I think it is more consistent with decompensated cirrhosis. History of Present Illness History of Present Illness Chief Complaint: Nausea and vomiting with abdominal pain Narrative: Julia is 77 years old with a past medical history that significant for alcoholic cirrhosis. She was recently hospitalized for abdominal pain and vomiting, and she had a HIDA scan that was concerning for acute cholecystitis. She underwent cholecystectomy. Her postoperative course has been a bit complicated by ongoing abdominal discomfort. She was eventually discharged home, but returned to the emergency department last week with near continuous vomiting with all meals and bilateral lower abdominal discomfort. She underwent a CAT scan at that time that demonstrated some ascites. Concern of a biliary leak was raised, and she was recommended to follow-up with a HIDA scan. She was subsequently discharged, but returned to the emergency department yesterday with exacerbation of similar complaints. She underwent a diagnostic paracentesis to rule out SBP. Review of Systems Constitutional Constitutional: Reports body ache(s), Denies chills, Reports difficulty sleeping, Reports fatigue, Denies fever(s), Reports lethargy, Reports malaise, Reports poor appetite and Reports weakness Eyes Eyes: Reports system reviewed and no additional complaints, except as documented ENT Ears, Nose, Mouth, and Throat: Reports system reviewed and no additional complaints, except as documented and Denies dizziness Cardiovascular Cardiovascular: Denies chest pain, Denies syncope, Denies irregular heart rhythm, Denies dyspnea and Reports dyspnea on exertion Respiratory Respiratory: Denies cough, Denies dyspnea and Reports dyspnea on exertion Gastrointestinal Gastrointestinal: Reports abdominal pain, Reports belching, Denies constipation, Denies cramping, Reports nausea and Reports vomiting Musculoskeletal Musculoskeletal: Reports back pain, Reports myalgias and Reports atrophy Neurologic Neurologic: Reports confusion, Denies dizziness, Denies syncope and Reports weakness Psychiatric Psychiatric: Reports confusion and Reports anhedonia Endocrine Endocrine: Reports fatigue Hematologic/Lymphatic Hematologic/Lymphatic: Denies lymphadenopathy PFSH All Active Problems Discharge planning issues (Acute) DVT prophylaxis (Acute) Cirrhosis of liver with ascites (Acute) Animal bite of right hand with infection (Acute) Urinary tract infection (Acute) Nausea & vomiting (Acute) Umbilical hernia (Acute) 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 ascites (Acute) Hyperbilirubinemia (Acute) Shortness of breath (Acute) Elevated blood pressure reading without diagnosis of hypertension (Acute) Left arm pain (Acute) Ambulatory dysfunction (Acute) Weakness (Acute) Incontinence (Acute) Urge incontinence (Acute) Anorexia (Acute) Headache (Acute) Onychomycosis (Acute) Depression (Chronic) Chest pain (Acute) Foot pain, right (Acute) Tendinitis of left rotator cuff (Acute) Macrocytosis (Acute 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 Leukopenia (Acute) Headache (Acute) Epigastric abdominal pain (Acute) Calcific tendinitis of left shoulder (Acute) Pulmonary mass (Acute) spiculated mass Pneumonia (Acute) Nausea & vomiting (Acute) Depression with suicidal ideation (Acute) Alcohol abuse (Chronic) Diarrhea (Acute) Epigastric pain (Acute) Nausea and vomiting (Acute) Dehydration (Acute) Hypokalemia (Acute) Discharge planning issues (Acute) C. difficile colitis (Acute) Palliative care patient (Acute) Difficult intravenous access (Acute) Multiple IV attempts, usually requires ultrasound placement. PTSD (post-traumatic stress disorder) (Acute) Anemia (Chronic) Depression (Chronic) Foot pain, right (Acute) T12 compression fracture (Acute) Presacral mass (Chronic) Deviated nasal septum (Acute) Frequent falls (Chronic) Head injury (Acute) Ambulatory dysfunction (Chronic) Shoulder pain, right (Chronic) DVT prophylaxis (Acute) Suicidal ideation (Acute) Dry eye (Acute) Pruritus (Acute) Dystrophic nail (Acute) AMBER (acute kidney injury) (Acute) Iron deficiency anemia (Chronic) Alcohol abuse (Chronic) Hypomagnesemia (Chronic) Discharge planning issues (Acute) UTI (urinary tract infection) (Acute) Fall (Acute) Atelectasis of left lung (Chronic) Advance directive on file (Acute) Nodule of upper lobe of right lung (Acute ~09/13/18) 09/13/18 [facility]; 12mm SPICULATED -kb Cataract (Chronic 11/07/15) Hypertension (Chronic) high today; she will check readings at home Hyperlipidemia (Chronic) Back pain, chronic (Chronic) Depression (Chronic) Osteopenia (Chronic) Medical History Adjustment disorder with depressed mood Alcoholic ketosis Anemia Cervical radicular pain neck pain and DJD [facility] 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) pls refrain from alcohol Chronic alcoholism she will not stop drinking unless she checks with me, so that we can help her avert withdrawal I do not think she is capable on her own--she would need placement to achieve required goal of 3 months of sobriety Chronic diarrhea Closed right humeral fracture Corneal ulcer, right (~08/23/18) 08/23/18; [facility]- Fracture of humerus, left, closed Genital herpes simplex recurrent gential; suppressive Valtrex GERD (gastroesophageal reflux disease) GI bleed (12/20/16) Hypertension Hypokalemia Hypomagnesemia Incidental lung nodule, greater than or equal to 8mm 1cm, spiculated, stable for many years, recommend f/u in 6 mo Multiple rib fractures 03/11/19 [facility] Non-cardiac chest pain (09/21/16) [facility] 09/21/16 NEGATIVE MP Osteoarthritis Palliative care patient (03/21/17) Pancreatitis, alcoholic, acute Peripheral edema Photophobia of right eye Pleural effusion on left 03/11/19 [facility] Presacral mass (~09/15/18) 09/15/18 [facility] Sciatica right, epidural injuections [facility] Tubular adenoma of colon (01/28/17) Urinary incontinence 01/24/13 urethral suspension and sling at [facility] (bladder suspension 1991) 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 Bladder repair. Repair bladder injury, simple Family History Mother No problems noted. Father , DROWNED at age 50. No problems noted. Sister Personal history of malignant neoplasm MELANOMA Sister No problems noted. Grandfather Personal history of malignant neoplasm STOMACH Grandfather Personal history of malignant neoplasm PROSTATE Grandmother Heart disease ID Acute ill-defined cerebrovascular disease Grandmother Personal history of malignant neoplasm UTERINE Aunt , ID Heart disease ID Aunt , ID Heart disease Brother No problems noted. Social History Smoking/Tobacco Use Status: Former Tobacco Use Quit Date: 08/05/20 Smoking risk assessment performed?: Yes Alcohol Intake: current Alcohol Intake frequency: 3 or more drinks per day Alcohol type: hard liquor Drug use: Never Substance use type: does not use Details: patient states has not had anything to drink for about 5 weeks. patient denies withdrawl symptoms. Current gender identity: female Do you feel safe at home: Yes Do you feel safe in your relationship?: Yes Meds Allergies and Home Medications Allergies Allergy/AdvReac Type Severity Reaction Status Date / Time Penicillins Allergy Mild Rash Verified 05/30/22 09:29 ramipril Allergy Unknown ITCHING Verified 05/30/22 09:29 meperidine [From Demerol] AdvReac Severe Nausea Verified 05/30/22 09:29 bupropion AdvReac Mild GI upset Verified 05/30/22 09:29 AMBER Inhibitors AdvReac Unknown COUGH Verified 05/30/22 09:29 alendronate sodium AdvReac Unknown GI Distress Verified 05/30/22 09:29 clarithromycin AdvReac Unknown intolerant Verified 05/30/22 09:29 paroxetine AdvReac Unknown Diarrhea Verified 05/30/22 09:29 Home Medications Medication Instructions Recorded Confirmed Type carboxymethylcellulose sodium 0.5 1 drp OU Q4H WHILE AWAKE #30 ea 06/20/19 05/30/22 Rx % eye drops in a dropperette (Refresh Plus) lifitegrast 5 % eye drops in a 1 drp ophthalmic (eye) BID 08/05/20 05/30/22 History dropperette (Xiidra) multivitamin (Multiple Vitamins 1 tab PO DAILY #90 tabs 09/05/20 05/30/22 Rx tablet) venlafaxine 75 mg capsule,extended 75 mg PO DAILY #90 caps 08/05/21 05/30/22 Rx release 24 hr ipratropium 0.5 mg-albuterol 3 mg 3 ml inhalation Q6H PRN 12/25/21 05/30/22 History (2.5 mg base)/3 mL nebulization soln quetiapine 25 mg tablet See Rx Instructions PO BID #30 tabs 12/29/21 05/30/22 Rx albuterol sulfate 90 mcg/actuation 2 puff inhalation QID PRN 02/08/22 05/30/22 Rx aerosol inhaler (Ventolin HFA) shortness of breath or wheezing #8.5 grams amlodipine 10 mg tablet 10 mg PO DAILY #90 tabs 02/08/22 05/30/22 Rx buspirone 5 mg tablet 5 mg PO BID #60 tabs 02/08/22 05/30/22 Rx folic acid 1 mg tablet 1 mg PO DAILY #90 tabs 02/08/22 05/30/22 Rx melatonin 3 mg capsule 6 mg PO HS #180 caps 02/08/22 05/30/22 Rx metoprolol tartrate 50 mg tablet 50 mg PO DAILY #90 tabs 02/08/22 05/30/22 Rx mirtazapine 7.5 mg tablet 7.5 mg PO QHS #90 tabs 02/08/22 05/30/22 Rx ondansetron 4 mg disintegrating 4 mg PO Q8H PRN nausea and 02/08/22 05/30/22 Rx tablet vomiting #20 tabs pantoprazole 40 mg tablet,delayed 40 mg PO DAILY #90 tabs 02/08/22 05/30/22 Rx release sucralfate 1 gram tablet 1 g PO BID #60 tabs 02/08/22 05/30/22 Rx thiamine HCl (vitamin B1) 100 mg 100 mg PO DAILY #90 tabs 02/08/22 05/30/22 Rx tablet valacyclovir 500 mg tablet 500 mg PO DAILY #90 tabs 02/08/22 05/30/22 Rx (Valtrex) fluticasone propionate 50 2 spray NS daily prn #16 grams 03/06/22 05/30/22 Rx mcg/actuation nasal spray,suspension budesonide 0.5 mg/2 mL suspension 0.5 mg (2 mL) inhalation DAILY #60 05/06/22 05/30/22 Rx for nebulization (Pulmicort) mL melatonin 3 mg capsule 3 mg PO .pm PRN sleep #90 caps 05/12/22 05/30/22 Rx cyanocobalamin (vitamin B-12) 500 1,000 mcg PO DAILY #0 tabs 05/21/22 05/30/22 Rx mcg tablet (Vitamin B-12) ferrous sulfate 325 mg (65 mg 325 mg PO BID #30 tabs 05/21/22 05/30/22 Rx iron) tablet pantoprazole 40 mg tablet,delayed 40 mg PO BID@0730,2000 #60 tabs 05/21/22 05/30/22 Rx release doxycycline hyclate 100 mg capsule 100 mg PO BID #20 caps 05/27/22 05/30/22 Rx metronidazole 500 mg tablet 500 mg PO TID #30 tabs 05/27/22 05/30/22 Rx cefpodoxime 100 mg tablet 100 mg PO BID 7 days #14 tabs 05/29/22 05/30/22 Rx Exam Const General: cooperative, disheveled and ill appearing Nutritional Appearance: malnourished Orientation: awake and confused HENMT Head: normal to inspection Ears: hearing grossly normal bilaterally Mouth: moist mucous membranes Eyes Sclera: scleral abnormality bilaterally other (Mild scleral icterus) Pupils: PERRL Neck Neck: normal visual inspection and no lymphadenopathy Resp Effort & Inspection: decreased respiratory effort (Difficulty with deep inspiration) and labored Auscultation: clear to auscultation bilaterally and diminished lung sounds (Diminished at the bases bilaterally) Cardio Jugular venous pressure: JVD Rate: regular rate Rhythm: regular rhythm Heart Sounds: S1 normal and S2 normal GI Inspection: distended Palpation: firm, no guarding, tender and ascites Percussion: dullness to percussion Auscultation: normal bowel sounds Skin General skin exam: jaundice (Mild) Lesions: no lesions Neuro General: patient awake and patient confused Speech: other (Speech is a little slow) Extrem General: pedal edema Results Labs Result diagrams: 05/31/22 05:42 05/31/22 07:45 Labs: Laboratory Results - last 24 hr 05/30/22 05/30/22 05/31/22 10:30 10:30 05:42 WBC RBC Hgb Hct MCV MCH MCHC RDW Plt Count MPV Immature Gran % Neutrophils % Lymphocytes % Monocytes % Eosinophils % Basophils % Nucleated RBC % Absolute Neutrophils Absolute Lymphocytes Absolute Monocytes Absolute Eosinophils Absolute Basophils RBC Morphology Anisocytosis Sodium Cancelled Potassium Cancelled Chloride Cancelled Carbon Dioxide Cancelled Anion Gap Cancelled BUN Cancelled Creatinine Cancelled Est GFR (CKD-EPI 2021) Cancelled Glucose Cancelled Calcium Cancelled Total Bilirubin Cancelled AST Cancelled ALT Cancelled Alkaline Phosphatase Cancelled Total Protein Cancelled Albumin Cancelled Urine Color Urine Clarity Urine pH Ur Specific [place] Urine Protein Urine Ketones Urine Blood Urine Nitrite Urine Bilirubin Urine Urobilinogen Ur Leukocyte Esterase Urine RBC Urine WBC Ur Epithelial Cells Urine Crystals Urine Bacteria Urine Casts Urine Mucus Ur Culture Indicated? Urine Glucose Fluid Glucose 136 Fluid Albumin 1.9 05/31/22 05/31/22 05/31/22 05:42 07:45 11:55 WBC 2.81 L RBC 3.30 L Hgb 9.1 L Hct 30.0 L MCV 91 MCH 27.6 MCHC 30.3 L RDW 20.9 H Plt Count 107 L MPV 9.4 Immature Gran % 0.4 Neutrophils % 64.7 Lymphocytes % 26.3 Monocytes % 8.2 Eosinophils % 0.0 Basophils % 0.4 Nucleated RBC % 0.0 Absolute Neutrophils 1.82 Absolute Lymphocytes 0.74 L Absolute Monocytes 0.23 Absolute Eosinophils 0.00 Absolute Basophils 0.01 RBC Morphology See Below Anisocytosis 2+ Sodium 142 Potassium 3.5 Chloride 107 Carbon Dioxide 27.9 Anion Gap 7.1 BUN 10 Creatinine 0.9 Est GFR (CKD-EPI 2020) 66.26 Glucose 119 H Calcium 8.7 Total Bilirubin 0.9 AST 41 H ALT 29 Alkaline Phosphatase 124 H Total Protein 5.4 L Albumin 2.6 L Urine Color Dark Yellow Urine Clarity Clear Urine pH 6.0 Ur Specific [place] 1.025 Urine Protein 30 H Urine Ketones Negative Urine Blood Negative Urine Nitrite Negative Urine Bilirubin Small H Urine Urobilinogen 0.2 Ur Leukocyte Esterase Trace H Urine RBC Negative Urine WBC 0-2 Ur Epithelial Cells Rare Urine Crystals Negative Urine Bacteria Rare Urine Casts 0-2 Hyaline Urine Mucus Trace Ur Culture Indicated? Yes Urine Glucose Negative Fluid Glucose Fluid Albumin Last Vital Signs Temp 98.1 F 05/31/22 15:01 Pulse 87 05/31/22 15:01 Resp 18 05/31/22 15:01 BP 150/83 H 05/31/22 15:01 Pulse Ox 95 05/31/22 15:01
[2022-05-31] MEDS: Melatonin 3 MG TAB PO (21:41)
[2022-05-31] MEDS: Mirtazapine 15 MG TAB 7.5 MG PO (21:42)
[2022-06-01] MEDS: Refresh PLUS Eye Drops 0.4ml OU ×4 (04:31→19:47)
[2022-06-01] MEDS: CIPROFLOXACIN 400 MG/200 ML BAG 200 MG IVPB ×2 (04:31→16:30)
[2022-06-01] MEDS: Heparin 5,000 UNITS/ML VIAL 5000 UNITS SC ×2 (04:31→16:29)
[2022-06-01 04:51] VITALS: BP 160/82; PULSE 94; RESP 20; TEMP 36.2; O2SAT 94
[2022-06-01 07:29] VITALS: BP 135/74; PULSE 95; RESP 16; TEMP 36.5; O2SAT 92
[2022-06-01] MEDS: Budesonide 0.5 MG/2 ML UPD VIAL IH (07:50)
[2022-06-01] MEDS: QUEtiapine 25 MG TAB 12.5 MG PO ×2 (09:27→19:48)
[2022-06-01] MEDS: amLODIPine 10 MG TAB PO (09:28)
[2022-06-01] MEDS: Metoprolol 50 MG TAB PO (09:28)
[2022-06-01] MEDS: busPIRone 5 MG TAB PO ×2 (09:29→19:50)
[2022-06-01] MEDS: Clindamycin 300 MG CAP PO ×3 (09:29→19:47)
[2022-06-01] MEDS: Sucralfate 1 GM TAB PO ×2 (09:29→16:27)
[2022-06-01] MEDS: Cyanocobalamin 500 MCG TAB 1000 MCG PO (09:29)
[2022-06-01] MEDS: Ferrous Sulfate 325 MG TAB PO (09:29)
[2022-06-01] MEDS: Multivitamin TAB 1 TAB PO (09:29)
[2022-06-01] MEDS: Folic Acid 1 MG TAB PO (09:29)
[2022-06-01] MEDS: Venlafaxine 75 MG CAPCR PO (09:29)
[2022-06-01] MEDS: Pantoprazole 40 MG TABCR PO (09:29)
[2022-06-01] MEDS: Thiamine 100 MG TAB PO (09:29)
--- NOTE | 2022-06-01 12:51 | W.PM.PROGNOT ---
Date of Service Date of service: 06/01/22 Time of Service: 12:51 Assessment and Plan Assessment and plan (1) Cirrhosis of liver with ascites: Status: Acute Assessment and plan: HIDA scan was negative for a bile leak. Suspect the fluid is all due to cirrhosis for her alcohol abuse. She is asymptomatic at this time from the ascitis. We can do a parasenthesis if she becomes symptomatic. I was very direct with Leticia and told her that if she doesnt stop drinking she will of cirrhosis. Hospitalist is asuming care of the patient which is appreciated Subjective Subjective Interval history since last seen: Leticia is feeling better today. She is eating a regular diet without nausea, vomiting or abdominal pain. Her abdomen is distended. No fevers or chills overnight. Exam Const General: comfortable and no acute distress Orientation: alert and oriented x3 HENMT Head: normocephalic and atraumatic Resp Effort & Inspection: normal respiratory effort Cardio Rate: regular rate Rhythm: regular rhythm GI Inspection: distended (moderate ascitis on CT scan) Objective Last Vital Signs Temp 97.7 F 06/01/22 07:29 Pulse 95 H 06/01/22 07:29 Resp 16 06/01/22 07:29 BP 135/74 06/01/22 07:29 Pulse Ox 92 06/01/22 07:29
[2022-06-01 15:08] VITALS: BP 131/78; PULSE 82; RESP 18; TEMP 36.7; O2SAT 94
[2022-06-01] MEDS: Acetaminophen 325 MG TAB 650 MG PO (16:27)
[2022-06-01] MEDS: Normal Saline Flush 10 ML SYR IVP (16:31)
--- NOTE | 2022-06-01 18:24 | PDOC.CMPRO ---
- If Service Date Differs Date of service: 06/01/22 Time of Service: 18:24 Care Management Progress Note S/O: Leticia was sitting up in bed when CM met with her. She was awake, alert and oriented and engaged easily with CM. Leticia shared that she is feeling better but still does not have much appetite. She made it clear that it was not that the food didn't taste good, just that she did not feel like eating. Leticia expressed her desire to go home. She indicated that she had hoped to be discharged today but that she definitely wanted to go tomorrow - as early as possible. She shared that she is worried about her animals and misses them. There was discussion earlier in the day about the need to have another paracentesis but it was determined not to be necessary. A:Leticia is a 77 year old woman admitted on 05/30/22 with a question of a biliary leak P:Anticipate Leticia will be discharged home when medically cleared by provider. She will follow up with her community providers and plan of care as directed. Leticia will transport home via [facility] private vehicle coordinated by [facility]. CM will continue to support Leticia and any discharge planning needs.
--- NOTE | 2022-06-01 19:30 | DI.RAD_ITS ---
Exam(s) XR HAND RT COMPLETE EXAM: XR HAND RT COMPLETE CLINICAL HISTORY: R hand pain, ecchymosis. TECHNIQUE: 2D digital imaging was performed. Three views. COMPARISON: CR XR hand RT complete from 04/14/2019 FINDINGS: BONES: No acute fracture is present. Old fracture proximal phalanx index finger. Bones appear osteo penic peanut. No bony destructive lesion is seen. JOINTS: No dislocation present. Chronic flexion deformity at the 2nd PIP joint. SOFT TISSUE: Normal. IMPRESSION: No acute abnormality. DATA REPOSITORY: RADIATION DOSE DELIVERED:
--- NOTE | 2022-06-01 19:34 | W.PM.PROGNOT ---
Date of Service Date of service: 06/01/22 Time of Service: 19:36 Assessment and Plan Assessment and plan (1) Animal bite of right hand with infection: Status: Acute Assessment and plan: Continue cipro + clindamycin. Obtain XR R hand. Would opt for the shortest course possible due to h/o C.diff. (2) Nausea & vomiting: Status: Resolved Assessment and plan: I suspect this was Leticia's reaction to metronidazole while drinking alcohol. No evidence of an acute intraabdominal process. No Bile leak. Continue protonix and carafate because alcoholic gastritis is a possibility. Clinically, does not have SBP, but her WBC in the peritoneal fluid was borderline. Cx w/ no growth. Will monitor. Tolerating PO. (3) Cirrhosis of liver with ascites: Status: Acute Assessment and plan: Add aldactone and lasix. Low sodium diet. Does not require paracenthesis at this time. (4) Alcohol abuse: Status: Chronic Assessment and plan: Continue thiamine and monitoring for w/d. (5) DVT prophylaxis: Status: Acute Assessment and plan: SC heparin (6) Discharge planning issues: Status: Acute Assessment and plan: DNR/DNI Anticipate discharge home tomorrow. Subjective Subjective Interval history since last seen: Hospitalists have taken over care. Leticia states that her R hand feels better but it is still very sore. She does not think that she fell on it. She denies dizziness, chest pain, states she gets short of breath with activity. She states that her abdomen does feel a little painful in LLQ today (it used to hurt in RUQ but has now changed). Exam Narrative Exam Narrative: General: Pleasant female who is forgetful, A&Ox2, does not appear ill, laying comfortably in bed HEENT: EOMI, MMM Cardiovascular: RRR, no m/r/g Lungs: CTAB Gastrointestinal: soft, distended with ascites, minimally diffusely tender Extremities: trace edema BLEs, R hand with decreased erythema dorsal surface, ecchymosis lateral hand Objective Last Vital Signs Temp 36.7 C 06/01/22 15:08 Pulse 82 06/01/22 15:08 Resp 18 06/01/22 15:08 BP 131/78 06/01/22 15:08 Pulse Ox 94 06/01/22 15:08
[2022-06-01] MEDS: LORazepam 1 MG TAB 2 MG PO (19:50)
[2022-06-01] MEDS: Melatonin 3 MG TAB PO (21:07)
[2022-06-01] MEDS: Mirtazapine 15 MG TAB 7.5 MG PO (21:08)
[2022-06-01] MEDS: Spironolactone 25 MG TAB PO (21:08)
--- NOTE | 2022-06-01 23:01 | DI.VRAD_ITS ---
PROCEDURE INFORMATION: Exam: XR Right Hand Exam date and time: 06/01/2022 22:04 Age: 77 years old Clinical indication: Right; Patient HX: R hand pain after being scratched and bit by cat, ecchymosis TECHNIQUE: Imaging protocol: Radiologic exam of the Right hand. Views: 3 or more views. COMPARISON: CR XR hand RT complete 04/14/2019 17:02 FINDINGS: Bones/joints: The bones are demineralized. No acute fracture or subluxation. No focal osseous erosion. Chronic appearing deformity 2nd proximal phalanx. Mild suspected fixed flexion of the 2nd PIP joint. Scattered mild degenerative changes in the interphalangeal joints. Soft tissues: Unremarkable. IMPRESSION: 1. No acute bony pathology. 2. Chronic findings as described. Dictated and Authenticated by: Yadira Hernandez MD. Ordering:JENNIE Ruffin MD
[2022-06-01 23:10] VITALS: BP 146/85; PULSE 88; RESP 16; TEMP 36.4; O2SAT 95
[2022-06-02] VITALS (7 sets, daily range): BP systolic 108–160; BP diastolic 67–80; PULSE 77–106; RESP 14–18; TEMP 35.8–37; O2SAT 92–96
[2022-06-02] MEDS: Heparin 5,000 UNITS/ML VIAL 5000 UNITS SC (03:51)
[2022-06-02] MEDS: Refresh PLUS Eye Drops 0.4ml OU ×5 (03:52→19:31)
[2022-06-02] MEDS: Normal Saline Flush 10 ML SYR IVP ×5 (03:52→15:51)
[2022-06-02] MEDS: CIPROFLOXACIN 400 MG/200 ML BAG 200 MG IVPB (04:45)
[2022-06-02 06:43] LABS: Abs Immature Grans 0.03 10^3/uL (0.0-0.06); Absolute Basophil Count 0.01 10^3/uL (0.0-0.2); Absolute Eosinophil Count 0.01 10^3/uL (0.0-0.7); Absolute Lymphocyte Count 0.57 10^3/uL (1.2-3.4); Absolute Neutrophil Count 2.53 10^3/uL (1.2-6.7); Basophils % 0.3; Eosinophils % 0.3; HCT 31.7 % (36.0-46.0); Immature Grans % 0.9; Lymphocytes % 16.5; MCH 27.8 pg (27.0-33.0); MCHC 31.5 % (32.0-36.0); MCV 88 fL (80-95); MPV 9.4 fL (8.0-11.0); Monocytes % 8.7; Neutrophils % 73.3; Platelet Count 137 10^3/uL (130-400); RDW 21.3 % (11.7-14.6); RDW-SD 67.5 fL; WBC 3.45 10^3/uL (4.4-10.8)
[2022-06-02 06:48] LABS: Anion Gap 7.2 mmol/L (3-11); BUN 9 mg/dL (7-18); CO2 25.8 mmol/L (21.0-32.0); CREATININE 0.9 mg/dL (0.55-1.02); Calcium 8.9 mg/dL (8.5-10.1); Chloride 104 mmol/L (98-107); Estimated GFR 66.26 (mL/min/1.73m2); Glucose 140 mg/dL (74-106); Magnesium 1.6 mg/dL (1.8-2.4); Potassium 3.5 mmol/L (3.5-5.1); Sodium 137 mmol/L (136-145)
[2022-06-02 07:22] LABS: Anisocytosis 2+; Diff Comment RBC Morph Reviewed
[2022-06-02] MEDS: Budesonide 0.5 MG/2 ML UPD VIAL IH (07:51)
[2022-06-02] MEDS: Spironolactone 25 MG TAB PO (08:46)
[2022-06-02] MEDS: Pantoprazole 40 MG TABCR PO (08:46)
[2022-06-02] MEDS: amLODIPine 10 MG TAB PO (08:46)
[2022-06-02] MEDS: Cyanocobalamin 500 MCG TAB 1000 MCG PO (08:46)
[2022-06-02] MEDS: Venlafaxine 75 MG CAPCR PO (08:47)
[2022-06-02] MEDS: busPIRone 5 MG TAB PO ×2 (08:47→19:31)
[2022-06-02] MEDS: Ferrous Sulfate 325 MG TAB PO ×2 (08:47→19:31)
[2022-06-02] MEDS: Thiamine 100 MG TAB PO (08:47)
[2022-06-02] MEDS: Sucralfate 1 GM TAB PO ×2 (08:47→15:51)
[2022-06-02] MEDS: Acetaminophen 325 MG TAB 650 MG PO (08:47)
[2022-06-02] MEDS: Multivitamin TAB 1 TAB PO (08:47)
[2022-06-02] MEDS: Metoprolol 50 MG TAB PO (08:48)
[2022-06-02] MEDS: Clindamycin 300 MG CAP PO ×3 (08:48→19:31)
[2022-06-02] MEDS: Furosemide 20 MG TAB PO ×2 (08:49→15:51)
[2022-06-02] MEDS: Folic Acid 1 MG TAB PO (08:49)
[2022-06-02] MEDS: QUEtiapine 25 MG TAB 12.5 MG PO ×2 (08:49→19:32)
[2022-06-02] MEDS: MAGNESIUM SULFATE 2 GM/50 ML BAG IVPB (09:32)
--- NOTE | 2022-06-02 12:01 | IN_ITS ---
PT Notes Visit Reasons: N/V,?Biliary Leak Inpatient Physical Therapy Evaluation Date: 06/02/22 Referring Doctor: Dr. Dumont PT Orders: PT CONSULT: safety consult Precautions: fall, standard Patient Profile/Admitting Diagnosis: Patient seen in the ER for evaluation of abdominal pain and vomiting. She has remained hospitalized under observation status. PT consult ordered for safety consultation. PMHX: All Active Problems? Discharge planning issues (Acute) DVT prophylaxis (Acute) Cirrhosis of liver with ascites (Acute) Animal bite of right hand with infection (Acute) Urinary tract infection (Acute) Nausea & vomiting (Acute) Umbilical hernia (Acute) 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 ascites (Acute) Hyperbilirubinemia (Acute) Shortness of breath (Acute) Elevated blood pressure reading without diagnosis of hypertension (Acute) Left arm pain (Acute) Ambulatory dysfunction (Acute) Weakness (Acute) Incontinence (Acute) Urge incontinence (Acute) Anorexia (Acute) Headache (Acute) Onychomycosis (Acute) Depression (Chronic) Chest pain (Acute) Foot pain, right (Acute) Tendinitis of left rotator cuff (Acute) Macrocytosis (Acute 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 Leukopenia (Acute) Headache (Acute) Epigastric abdominal pain (Acute) Calcific tendinitis of left shoulder (Acute) Pulmonary mass (Acute) spiculated massPneumonia (Acute) Nausea & vomiting (Acute) Depression with suicidal ideation (Acute) Alcohol abuse (Chronic) Diarrhea (Acute) Epigastric pain (Acute) Nausea and vomiting (Acute) Dehydration (Acute) Hypokalemia (Acute) Discharge planning issues (Acute) C. difficile colitis (Acute) Palliative care patient (Acute) Difficult intravenous access (Acute) Multiple IV attempts, usually requires ultrasound placement.PTSD (post-traumatic stress disorder) (Acute) Anemia (Chronic) Depression (Chronic) Foot pain, right (Acute) T12 compression fracture (Acute) Presacral mass (Chronic) Deviated nasal septum (Acute) Frequent falls (Chronic) Head injury (Acute) Ambulatory dysfunction (Chronic) Shoulder pain, right (Chronic) DVT prophylaxis (Acute) Suicidal ideation (Acute) Dry eye (Acute) Pruritus (Acute) Dystrophic nail (Acute) AMBER (acute kidney injury) (Acute) Iron deficiency anemia (Chronic) Alcohol abuse (Chronic) Hypomagnesemia (Chronic) Discharge planning issues (Acute) UTI (urinary tract infection) (Acute) Fall (Acute) Atelectasis of left lung (Chronic) Advance directive on file (Acute) Nodule of upper lobe of right lung (Acute ~09/13/18) 09/13/18 [facility]; 12mm SPICULATED -kbCataract (Chronic 11/07/15) Hypertension (Chronic) high today; she will check readings at homeHyperlipidemia (Chronic) Back pain, chronic (Chronic) Depression (Chronic) Osteopenia (Chronic) Medical History? Adjustment disorder with depressed mood Alcoholic ketosis Anemia Cervical radicular pain neck pain and DJD [facility] 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) pls refrain from alcoholChronic alcoholism she will not stop drinking unless she checks with me, so that we can help her avert withdrawal I do not think she is capable on her own--she would need placement to achieve required goal of 3 months of sobrietyChronic diarrhea Closed right humeral fracture Corneal ulcer, right (~08/23/18) 08/23/18; [facility]-kbFracture of humerus, left, closed Genital herpes simplex recurrent gential; suppressive Valtrex GERD (gastroesophageal reflux disease) GI bleed (12/20/16) Hypertension Hypokalemia Hypomagnesemia Incidental lung nodule, greater than or equal to 8mm 1cm, spiculated, stable for many years, recommend f/u in 6 moMultiple rib fractures [facility]11[facility]16) [facility] 09/21/16 NEGATIVE MP Osteoarthritis Palliative care patient (03/21/17) Pancreatitis, alcoholic, acute Peripheral edema Photophobia of right eye Pleural effusion on left 03/11/[address] [facility] MCPresacral mass (~09/15/18) 09/15/[address] [facility] MEDICAL CENTERSciatica right, epidural injuections [facility] Tubular adenoma of colon (01/28/17) Urinary incontinence 01/24/13 urethral suspension and sling at [facility] (bladder suspension 1991) Vision loss of right eye 08/17/18;[facility]-kbWernicke encephalopathy Social History/Home Situation: lives alone in apartment with 4 RAFAEL. Uses either FWW or cane for ambulation in the home. Has caregiver for 2 hours, 3x/week. Was participating in outpatient PT until her recent issues. Equipment Owned/DME: cane, FWW Subjective: Leticia is agreeable to getting up walking. Objective: General Observation: Resting in chair. IV in LUE. Mental Status: A&Ox3, although provides somewhat inconsistent history. Pain: abdominal pain ROM: Right Upper Extremity: Shoulder flexion to 150*, limited by pain. Elbow and wrist motion WNL. Left Upper Extremity: Shoulder flexion to 140*, limited by pain. Elbow and wrist motion WNL. Right Lower Extremity: Grossly WNL Left Lower Extremity: Groslsy WNL Strength: Right Upper Extremity: grossly 3-/5 for shoulder motions. Resisted strength testing not performed due to recent abdominal surgery. Left Upper Extremity: grossly 3-/5 for shoulder motions. Resisted strength testing not performed due to recent abdominal surgery. Right Lower Extremity: Able to perform SLR, heel slide and ankle pumps. Resisted strength testing not performed due to recent abdominal surgery. Left Lower Extremity: Able to perform SLR, heel slide and ankle pumps. Resisted strength testing not performed due to recent abdominal surgery. Bed Mobility/Transfers: sit-stand: supervision stand-sit: supervision Gait: ambulates 75' x 2, FWW, supervision. She does report symptoms of wooziness on 2 occasions, both passing with rest. Stairs: Ascends and descends 4 steps x 3, 6 steps x 2 with bilat rails, CGA to supervision. Balance: Static Sitting: normal Dynamic Sitting: normal Static Standing: good Dynamic Standing: fair Special Tests: Mobility Limitations Standardized Measure [facility]-PAC 6 clicks Basic Mobility Inpatient Short Form: Raw Score: 22 CMS Score: 21% impairment Informed Consent/Education: Patient instructed in purpose of PT consult and plan of care. Assessment: Patient is a 77 year old female referred to physical therapy services for safety consultation during hospital stay on observation status. Patient presents with chronic mobility issues due to complicated medical history and recent abdominal surgery. She is, however, functioning at baseline level, and is appropriate for discharge home once medically stable. She'll benefit from resuming outpatient PT to address chronic mobility issues once cleared by her surgeon for return. Patient is assessed as Low 31759 complexity based on the following: History: 77 year old female admitted on observation status for post-operative nausea and vomiting. Examination: decreased activity tolerance, with complicated medical history Presentation: stable Decision Making: low Plan of Care/Treatment Plan: No further PT required in hospital setting, as patient is demonstrating baseline level of function. Safe for d/c to community once medically stable. DISCHARGE RECOMMENDATIONS: Home with no services (resume outpatient PT once cleared by surgeon) TREATMENT CODE/TIME: 11:45-12:15 ([id number]) aMe Wallace, PT, DPT [facility]
--- NOTE | 2022-06-02 13:51 | W.PM.PROGNOT ---
Date of Service Date of service: 06/02/22 Time of Service: 13:51 Assessment and Plan Assessment and plan (1) Animal bite of right hand with infection: Status: Acute Assessment and plan: Continue cipro + clindamycin. XR hand w/o acute abnormality. Able to feed herself and use a walker. Hope for OT consultation tomorrow am. Would opt for the shortest course of abx possible due to h/o C.diff. (2) Nausea & vomiting: Status: Resolved Assessment and plan: I suspect this was Leticia's reaction to metronidazole while drinking alcohol. No evidence of an acute intraabdominal process. No Bile leak. Continue protonix and carafate because alcoholic gastritis is a possibility. Check hematest. Clinically, does not have SBP, but her WBC in the peritoneal fluid was borderline. Cx w/ no growth. Will monitor. Tolerating PO. (3) Cirrhosis of liver with ascites: Status: Acute Assessment and plan: C/s general surgery for paracenthesis. Increase the dose of aldactone Continue low sodium diet. . (4) Alcohol abuse: Status: Chronic Assessment and plan: Continue thiamine and monitoring for w/d. (5) DVT prophylaxis: Status: Acute Assessment and plan: SC heparin on hold prior to procedure (6) Discharge planning issues: Status: Acute Assessment and plan: DNR/DNI Anticipate discharge home tomorrow with outpatient PT. Subjective Subjective Interval history since last seen: Leticia states her abdomen is very distended and uncomfortable in BLQ. She would like it drained. She denies dizziness, chest pain, shortness of breath, nausea. Her R hand still hurts. She thinks it's still red, but we discussed how much better it looks. She did well with PT. Exam Narrative Exam Narrative: General: Pleasant female who is forgetful, A&Ox3, sitting up in a chair, abdomen looks much more distended than yesterday. HEENT: EOMI, MMM Cardiovascular: RRR, no m/r/g Lungs: CTAB Gastrointestinal: soft, more distended with ascites, more tender in BLQ Extremities: no edema BLEs, R hand with minimal erythema dorsal surface, ecchymosis lateral hand Objective Last Vital Signs Temp 37.0 C 06/02/22 07:15 Pulse 106 H 06/02/22 07:15 Resp 18 06/02/22 07:15 BP 160/80 H 06/02/22 07:15 Pulse Ox 92 06/02/22 07:15 Laboratory Results - last 24 hr 06/02/22 06/02/22 05:55 05:55 WBC 3.45 L RBC 3.60 L Hgb 10.0 L Hct 31.7 L MCV 88 MCH 27.8 MCHC 31.5 L RDW 21.3 H Plt Count 137 MPV 9.4 Immature Gran % 0.9 Neutrophils % 73.3 Lymphocytes % 16.5 Monocytes % 8.7 Eosinophils % 0.3 Basophils % 0.3 Nucleated RBC % 0.0 Absolute Neutrophils 2.53 Absolute Lymphocytes 0.57 L Absolute Monocytes 0.30 Absolute Eosinophils 0.01 Absolute Basophils 0.01 RBC Morphology See Below Anisocytosis 2+ Sodium 137 Potassium 3.5 Chloride 104 Carbon Dioxide 25.8 Anion Gap 7.2 BUN 9 Creatinine 0.9 Est GFR (CKD-EPI 2020) 66.26 Glucose 140 H Calcium 8.9 Magnesium 1.6 L
--- NOTE | 2022-06-02 15:51 | PDOC.CMPRO ---
- If Service Date Differs Date of service: 06/02/22 Time of Service: 15:51 Care Management Progress Note S/O: Leticia was sitting up in a chair when CM met with her. She reported that she is doing ok, and her hand only hurts when people touch it. Per RN, she will have a paracenthesis later this afternoon. Per MD, she will also have an OT consult, which likely will be tomorrow morning. Leticia expressed that she would like to return home, but is comfortable with the plan to remain overnight, if needed. CM will continue to follow. A:Leticia is a 77 year old woman admitted on 05/30/22 with a question of a biliary leak P:Anticipate Leticia will be discharged home when medically cleared by provider. She will follow up with her community providers and plan of care as directed. Leticia will transport home via [facility] private vehicle coordinated by CM. CM will continue to support Leticia and any discharge planning needs.
[2022-06-02] MEDS: CIPROFLOXACIN 400 MG/200 ML BAG IVPB (15:52)
--- NOTE | 2022-06-02 16:36 | SCONE_ITS ---
Date of service: 06/02/22 Time of Service: 16:37 Assessment and Plan Assessment and plan (1) Cirrhosis of liver with ascites: Status: Acute Assessment and plan: Leticia is a 77 year old with uncompensated cirrhosis and ascitis. We were asked to perform a parasenthesis for comfort. The procedure was explained in detail as well as the risks, benefits and complications. Complications include but are not limited to bleeding, pain, infection, injury to small intestine, hypotension and tachycardia. Questions were entertained and answered to her satisfaction and she wished to proceed. No guarantees were given or implied. History of Present Illness Narrative: We were asked to see Leticia again today for consideration of doing a parasenthesis for ascitis. Leticia is feeling more uncomfortable. She has early satiety. INR is 1.2 which is still safe to do a procedure. Consults Consult date: 06/02/22 Requesting physician: Laly Dumont Review of Systems All systems reviewed & are unremarkable except as noted in HPI and below PFSH All Active Problems Advance care planning (Acute) Discharge planning issues (Acute) DVT prophylaxis (Acute) Cirrhosis of liver with ascites (Acute) Animal bite of right hand with infection (Acute) Urinary tract infection (Acute) Umbilical hernia (Acute) 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 ascites (Acute) Hyperbilirubinemia (Acute) Shortness of breath (Acute) Elevated blood pressure reading without diagnosis of hypertension (Acute) Left arm pain (Acute) Ambulatory dysfunction (Acute) Weakness (Acute) Incontinence (Acute) Urge incontinence (Acute) Anorexia (Acute) Headache (Acute) Onychomycosis (Acute) Depression (Chronic) Chest pain (Acute) Foot pain, right (Acute) Tendinitis of left rotator cuff (Acute) Macrocytosis (Acute 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 Leukopenia (Acute) Headache (Acute) Epigastric abdominal pain (Acute) Calcific tendinitis of left shoulder (Acute) Pulmonary mass (Acute) spiculated mass Pneumonia (Acute) Nausea & vomiting (Acute) Depression with suicidal ideation (Acute) Alcohol abuse (Chronic) Diarrhea (Acute) Epigastric pain (Acute) Nausea and vomiting (Acute) Dehydration (Acute) Hypokalemia (Acute) Discharge planning issues (Acute) C. difficile colitis (Acute) Palliative care patient (Acute) Difficult intravenous access (Acute) Multiple IV attempts, usually requires ultrasound placement. PTSD (post-traumatic stress disorder) (Acute) Anemia (Chronic) Depression (Chronic) Foot pain, right (Acute) T12 compression fracture (Acute) Presacral mass (Chronic) Deviated nasal septum (Acute) Frequent falls (Chronic) Head injury (Acute) Ambulatory dysfunction (Chronic) Shoulder pain, right (Chronic) DVT prophylaxis (Acute) Suicidal ideation (Acute) Dry eye (Acute) Pruritus (Acute) Dystrophic nail (Acute) AMBER (acute kidney injury) (Acute) Iron deficiency anemia (Chronic) Alcohol abuse (Chronic) Hypomagnesemia (Chronic) Discharge planning issues (Acute) UTI (urinary tract infection) (Acute) Fall (Acute) Atelectasis of left lung (Chronic) Advance directive on file (Acute) Nodule of upper lobe of right lung (Acute ~09/13/18) 09/13/18 [facility]; 12mm SPICULATED -kb Cataract (Chronic 11/07/15) Hypertension (Chronic) high today; she will check readings at home Hyperlipidemia (Chronic) Back pain, chronic (Chronic) Depression (Chronic) Osteopenia (Chronic) Medical History Adjustment disorder with depressed mood Alcoholic ketosis Anemia Cervical radicular pain neck pain and [facility]D [facility] 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) pls refrain from alcohol Chronic alcoholism she will not stop drinking unless she checks with me, so that we can help her avert withdrawal I do not think she is capable on her own--she would need placement to achieve required goal of 3 months of sobriety Chronic diarrhea Closed right humeral fracture Corneal ulcer, right (~08/23/18) 08/23/18; [facility] Fracture of humerus, left, closed Genital herpes simplex recurrent gential; suppressive Valtrex GERD (gastroesophageal reflux disease) GI bleed (12/20/16) Hypertension Hypokalemia Hypomagnesemia Incidental lung nodule, greater than or equal to 8mm 1cm, spiculated, stable for many years, recommend f/u in 6 mo Multiple rib fractures 03/11/19 [facility] Non-cardiac chest pain (09/21/16) [facility] 09/21/16 NEGATIVE MP Osteoarthritis Palliative care patient (03/21/17) Pancreatitis, alcoholic, acute Peripheral edema Photophobia of right eye Pleural effusion on left 03/11/19 [facility] Presacral mass (~09/15/18) 09/15/18 [facility] Sciatica right, epidural injuections [facility] Tubular adenoma of colon (01/28/17) Urinary incontinence 01/24/13 urethral suspension and sling at [facility] (bladder suspension 1991) 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 Bladder repair. Repair bladder injury, simple Family History Mother No problems noted. Father , DROWNED at age 50. No problems noted. Sister Personal history of malignant neoplasm MELANOMA Sister No problems noted. Grandfather Personal history of malignant neoplasm STOMACH Grandfather Personal history of malignant neoplasm PROSTATE Grandmother Heart disease MS Acute ill-defined cerebrovascular disease Grandmother Personal history of malignant neoplasm UTERINE Aunt , MS Heart disease MS Aunt , MS Heart disease Brother No problems noted. Social History Smoking/Tobacco Use Status: Former Tobacco Use Quit Date: 08/05/20 Smoking risk assessment performed?: Yes Alcohol Intake: current Alcohol Intake frequency: 3 or more drinks per day Alcohol type: hard liquor Drug use: Never Substance use type: does not use Details: patient states has not had anything to drink for about 5 weeks. patie nt denies withdrawl symptoms. Current gender identity: female Do you feel safe at home: Yes Do you feel safe in your relationship?: Yes Exam GI Inspection: edema (pitting +2), distended and striae Palpation: soft, nontender and ascites Results Last Vital Signs Temp 96.4 F L 06/02/22 15:17 Pulse 77 06/02/22 15:17 Resp 16 06/02/22 15:17 BP 108/68 06/02/22 15:17 Pulse Ox 95 06/02/22 15:17 Labs Result diagrams: 06/02/22 05:55 06/02/22 05:55 Labs: Laboratory Results - last 24 hr 06/02/22 06/02/22 05:55 05:55 WBC 3.45 L RBC 3.60 L Hgb 10.0 L Hct 31.7 L MCV 88 MCH 27.8 MCHC 31.5 L RDW 21.3 H Plt Count 137 MPV 9.4 Immature Gran % 0.9 Neutrophils % 73.3 Lymphocytes % 16.5 Monocytes % 8.7 Eosinophils % 0.3 Basophils % 0.3 Nucleated RBC % 0.0 Absolute Neutrophils 2.53 Absolute Lymphocytes 0.57 L Absolute Monocytes 0.30 Absolute Eosinophils 0.01 Absolute Basophils 0.01 RBC Morphology See Below Anisocytosis 2+ Sodium 137 Potassium 3.5 Chloride 104 Carbon Dioxide 25.8 Anion Gap 7.2 BUN 9 Creatinine 0.9 Est GFR (CKD-EPI 2020) 66.26 Glucose 140 H Calcium 8.9 Magnesium 1.6 L Procedures Paracentesis Time out performed: Yes Indication: Ascites Procedure: therapeutic paracentesis Location: RLQ Local anesthetic used: lidocaine 1% Amount of anesthesia used (ml): 10 Bedside ultrasound used: no Preparation: 11 blade used to make declan in skin Amount of fluid obtained (ml): 2,800 Fluid: clear Size of needle used: 14 Post procedure exam: awake, alert, normal BP, normal HR and normal SpO2 Patient tolerated procedure: well Complications: none Additional comments: After informed consent was obtained from the patient she was placed in a supine position. The right lower quadrant was prepped and draped in a sterile surgical fashion. 1% lidocaine was injected into the dermis and down to the fascia. A small incision was made with an 11 blade. The needle and sheath that came in the kit was slowly advanced through the subcutaneous tissue and the peritoneum into the abdomen. As soon as serous fluid was suctioned the sheath was advanced over the needle into the abdomen and the needle was removed. The sheath was then attached to suction canisters and a total of 2.8 L of serous fluid was removed without complication. Once the procedure was done the sheath was removed and a small Band-Aid was applied over the incision. The patient was slowly placed into a sitting position. Patient did not develop any dizziness. Patient did well and there were no immediate complications.
[2022-06-02] MEDS: ALBUMIN HUMAN 25 GM/100 ML BTL IVPB ×2 (18:02→19:30)
[2022-06-02] MEDS: Spironolactone 25 MG TAB 50 MG PO (19:31)
[2022-06-02] MEDS: Melatonin 3 MG TAB PO (21:03)
[2022-06-02] MEDS: Mirtazapine 15 MG TAB 7.5 MG PO (21:03)
[2022-06-02] MEDS: LORazepam 1 MG TAB 2 MG PO (21:03)
[2022-06-03] MEDS: Acetaminophen 325 MG TAB 650 MG PO (01:32)
[2022-06-03] MEDS: CIPROFLOXACIN 400 MG/200 ML BAG IVPB (03:47)
[2022-06-03] MEDS: Refresh PLUS Eye Drops 0.4ml OU ×3 (03:48→11:54)
[2022-06-03 07:17] VITALS: BP 118/73; PULSE 81; RESP 16; TEMP 36.7; O2SAT 92
--- NOTE | 2022-06-03 08:42 | OTIE_ITS ---
Occupational Therapy Notes Inpatient Occupational Therapy Evaluation Date:06/03/22 Referring Doctor: Laly Dumont MD OT Orders: Eval and Treat- Non Urgent Precautions: Fall, Standard PATIENT PROFILE/ADMITTING DIAGNOSIS: Patient seen in the ER for evaluation of abdominal pain and vomiting. She has remained hospitalized on Med Surg. OT consult ordered for safety consultation and adaptive equipment needs. Past Medical History: All Active Problems? Discharge planning issues (Acute) DVT prophylaxis (Acute) Cirrhosis of liver with ascites (Acute) Animal bite of right hand with infection (Acute) Urinary tract infection (Acute) Nausea & vomiting (Acute) Umbilical hernia (Acute) 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 ascites (Acute) Hyperbilirubinemia (Acute) Shortness of breath (Acute) Elevated blood pressure reading without diagnosis of hypertension (Acute) Left arm pain (Acute) Ambulatory dysfunction (Acute) Weakness (Acute) Incontinence (Acute) Urge incontinence (Acute) Anorexia (Acute) Headache (Acute) Onychomycosis (Acute) Depression (Chronic) Chest pain (Acute) Foot pain, right (Acute) Tendinitis of left rotator cuff (Acute) Macrocytosis (Acute 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 Leukopenia (Acute) Headache (Acute) Epigastric abdominal pain (Acute) Calcific tendinitis of left shoulder (Acute) Pulmonary mass (Acute) spiculated massPneumonia (Acute) Nausea & vomiting (Acute) Depression with suicidal ideation (Acute) Alcohol abuse (Chronic) Diarrhea (Acute) Epigastric pain (Acute) Nausea and vomiting (Acute) Dehydration (Acute) Hypokalemia (Acute) Discharge planning issues (Acute) C. difficile colitis (Acute) Palliative care patient (Acute) Difficult intravenous access (Acute) Multiple IV attempts, usually requires ultrasound placement.PTSD (post-traumatic stress disorder) (Acute) Anemia (Chronic) Depression (Chronic) Foot pain, right (Acute) T12 compression fracture (Acute) Presacral mass (Chronic) Deviated nasal septum (Acute) Frequent falls (Chronic) Head injury (Acute) Ambulatory dysfunction (Chronic) Shoulder pain, right (Chronic) DVT prophylaxis (Acute) Suicidal ideation (Acute) Dry eye (Acute) Pruritus (Acute) Dystrophic nail (Acute) AMBER (acute kidney injury) (Acute) Iron deficiency anemia (Chronic) Alcohol abuse (Chronic) Hypomagnesemia (Chronic) Discharge planning issues (Acute) UTI (urinary tract infection) (Acute) Fall (Acute) Atelectasis of left lung (Chronic) Advance directive on file (Acute) Nodule of upper lobe of right lung (Acute ~09/13/18) 09/13/18 [facility]; 12mm SPICULATED -kbCataract (Chronic 11/07/15) Hypertension (Chronic) high today; she will check readings at homeHyperlipidemia (Chronic) Back pain, chronic (Chronic) Depression (Chronic) Osteopenia (Chronic) Medical History? Adjustment disorder with depressed mood Alcoholic ketosis Anemia Cervical radicular pain neck pain and DJD [facility] 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) pls refrain from alcoholChronic alcoholism she will not stop drinking unless she checks with me, so that we can help her avert withdrawal I do not think she is capable on her own--she would need placement to achieve required goal of 3 months of sobrietyChronic diarrhea Closed right humeral fracture Corneal ulcer, right (~08/23/18) 08/23/18; [facility]-kbFracture of humerus, left, closed Genital herpes simplex recurrent gential; suppressive Valtrex GERD (gastroesophageal reflux disease) GI bleed (12/20/16) Hypertension Hypokalemia Hypomagnesemia Incidental lung nodule, greater than or equal to 8mm 1cm, spiculated, stable for many years, recommend f/u in 6 moMultiple rib fractures 03/11[facility] [place]/21[place]16 NEGATIVE MP Osteoarthritis Palliative care patient (03/21/17) Pancreatitis, alcoholic, acute Peripheral edema Photophobia of right eye Pleural effusion on left 03/11/19 [facility] MCPresacral mass (~09/15/18) 09/15/18 [facility] right, epidural injuections [facility] Tubular adenoma of colon (01/28/17) Urinary incontinence 01/24/13 urethral suspension and sling [place] [facility] [place]bl[place] suspension 1991) Vision loss of right eye 08/17/18;[facility]-kbWernicke encephalopathy Surgical History? Colonoscopy - MAC (01/28/17) EGD - MAC (12/20/16) History of bilateral ligation of fallopian tubes History of Surgical Procedure a. Bladder repair.Repair bladder injury, simple Social History/Home Situation: She reports that she lives in a private home and has a caregiver who comes into the home 2 hours per day. She reports that her caregiver (A) with laundry, grocery shopping and home care tasks. Pt states that she takes a shower 2-3x per week. She states that she has a shower seat and what she considers a regular shower. She has a regular toilet and grab bars near her shower but they are removable. She states that otherwise she feels she is (I) and that she lives with her dog and 3 cats. She is incontinent at baseline and notes that she manages this with depends. She has meals on wheels and states t hat her diet change may affect this but does find this helpful. Equipment owned/DME: grab bars, shower seat, FWW SUBJECTIVE:? Pt was sitting in chair when OT arrived. She was agreeable to OT session and reports that she is going home today and is refusing to go SNF. OBJECTIVE: General Observation:Life line, pleasant and IV in (R) UE. Mental Status: A&Ox3 Pain: c/o pain at times but pt states that this is not consistent. ROM: Right Upper Extremity: Shoulder flexion to 150*, limited by pain. Elbow and wrist motion WNL. Left Upper Extremity: Shoulder flexion to 140*, limited by pain. Elbow and wrist motion WNL. 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 She does require (A) but this is her baseline. OT offered pt adaptive equipment like sock aid, dressing stick, dark room attendant which pt refused. OT and pt went over energy conservation techniques, management of ADLs at home and performance of her ADLs in the home setting. BALANCE: Static sitting Normal Dynamic Sitting Good SPECIAL TESTS: Daily Activity Limitations Standardized Measure [facility] ? AM -PAC ? ?6 clicks? Daily Activity Inpatient Short Form: Raw score: 20? Standardized score: 42.03 ? CMS score: 38.32% ? ? INFORMED CONSENT/EDUCATION: Pt instructed in purpose of OT Consult and plan of care. ASSESSMENT: ? Patient is a? 77-year-old female referred to occupational therapy services for safety consult and need of adaptive equipment in the home setting. Patient presents with clinical signs and symptoms consistent with dx, as demonstrated by the following impairment level findings/functional limitations: Decreased functional activity tolerance and pain at times with functional mobility. Patient is assessed as a Moderate [id number] complexity based on the following: History: See Above Examination: See functional limitations as noted above Presentation: Evolving Decision Making: AMPAC score 20 GOALS N/A pt was seen for OT consult only. PLAN OF CARE/TREATMENT PLAN: Seen for OT consult only. DISCHARGE RECOMMENDATIONS Home when medically cleared per MD. Pt refuses HH Services and notes that she has all the adaptive equipment needed. TREATMENT TIME/MINUTES/CODES 19255, 25 minutes (08:30) Yee Elizalde OTR/L [facility]
[2022-06-03] MEDS: Budesonide 0.5 MG/2 ML UPD VIAL IH (08:52)
[2022-06-03] MEDS: Clindamycin 300 MG CAP PO ×2 (08:59→13:28)
[2022-06-03] MEDS: Spironolactone 25 MG TAB 50 MG PO (08:59)
[2022-06-03] MEDS: Multivitamin TAB 1 TAB PO (09:01)
[2022-06-03] MEDS: Sucralfate 1 GM TAB PO (09:01)
[2022-06-03] MEDS: amLODIPine 10 MG TAB PO (09:01)
[2022-06-03] MEDS: QUEtiapine 25 MG TAB 12.5 MG PO (09:01)
[2022-06-03] MEDS: Cyanocobalamin 500 MCG TAB 1000 MCG PO (09:01)
[2022-06-03] MEDS: Folic Acid 1 MG TAB PO (09:01)
[2022-06-03] MEDS: Thiamine 100 MG TAB PO (09:02)
[2022-06-03] MEDS: Metoprolol 50 MG TAB PO (09:02)
[2022-06-03] MEDS: Pantoprazole 40 MG TABCR PO (09:02)
[2022-06-03] MEDS: Furosemide 20 MG TAB PO (09:02)
[2022-06-03] MEDS: Venlafaxine 75 MG CAPCR PO (09:02)
[2022-06-03] MEDS: busPIRone 5 MG TAB PO (09:02)
--- NOTE | 2022-06-03 13:27 | DSE_ITS ---
Date of service: 06/03/22 Time of Service: 13:27 DS: Diagnosis Discharge Diagnosis (1) Cirrhosis of liver with ascites: Status: Acute Asessment and Plan: secondary to alcoholism; peritoneal culture negative for peritonitis. patient begun on lasix 20 mg bid and spironolactone 50 mg bid; follow up BMP in one week; patient advised to stop all alcohol intake. No biliary leak per hepatobiliary scan. (2) Animal bite of right hand with infection: Status: Acute Asessment and Plan: 4 more days of Cipro 500 mg bid and clindamycin 300 mg tid after 3 days of parenteral antibiotics. blood cultures negative. (3) Nausea & vomiting: Status: Resolved Asessment and Plan: secondary to disulfiram reaction to flagyl and alcohol (4) Adverse effect of metronidazole: Status: Acute Asessment and Plan: disulfiram type reaction to metronidazole Discharge Plan Disposition Patient Disposition: HOME Condition: Improving Discharge Details Reason For Visit: N/V,?Biliary Leak Admit Date/Time: 06/01/22 11:30 Admit Provider: Angelito Noble Attending Provider: Laly Dumont Primary Care Provider: Lavelle Galindo Hospital Course Hospital Course: 68-year-old female with history of alcoholic cirrhosis who continues to abuse alcohol recently hospitalized with acute cholecystitis underwent cholecystectomy on 05/19/2022. Other core morbidities include chronic anemia, alcoholic gastritis, depression. Patient was admitted to the general surgical service on 05/30/2022 with suspected biliary leak after the patient presented with nausea and vomiting. CT scan on the admission demonstrated some ascites she underwent a diagnostic paracentesis to rule out spontaneous bacterial peritonitis. When a biliary leak was ruled out and spontaneous bacterial peritonitis was ruled out the hospital service was consulted. Further history obtained from the patient revealed that the patient had attempted to give her A bath when she had cat scratch and/or Bite to her right hand on the dorsum of her hand. She had been evaluated in [facility] care where she had been prescribed doxycycline and metronidazole for the cat bite. Unfortunately Leticia has never quit drinking alcohol and she developed severe nausea vomiting and abdominal pain with what appears to be a disulfiram like reaction between the alcohol and the metronidazole. Patient was admitted to the general surgical service to Dr. Angelito Noble and was subsequently followed by Dr. Diandra Wells. Abdominal and pelvic CT performed on 05/28/[address] scan on 05/13/2022 showing previous interval cholecystectomy. There is no dilatation biliary tree but the patient has significant mount ascites and radiologist recommend consideration for bile leak. Subsequent abdominal ultrasound and hepatobiliary scan was performed. Ultrasound showed moderate quantity of ascites. Hepatobiliary scan showed no evidence of bile leak. X-ray of the right hand showed no acute bony abnormalities of her right hand. Patient did have significant redness and swelling of her right hand and forearm and was started on ciprofloxacin and clindamycin. Patient has chronic pancytopenia secondary to her chronic liver disease. Her initial white count was within normal limits but on the higher end of normal at 7700 and after antibiotics it came down to her baseline level of 3400. Hemoglobin P.I.C.C. crit remained stable at 10 g and 31%. Platelet count was 137,000. CMP showed normal electrolytes BUN and creatinine with minimal elevation of her LFTs with alkaline phosphatase of 130 but otherwise normal AST and ALT and normal troponin. Albumin is chronically low at 3.2. Lipase was normal at 32. Blood cultures been no growth after 72 hours. Urine culture from 05/29/2022 showed E. coli that was pansensitive. Paracentesis Gram stain showed rare white blood cells but no bacteria. Ascites fluid had no growth after 72 hours. Patient remained afebrile throughout her hospital course. Redness and s welling to right hand and forearm resolved. She was treated with ciprofloxacin 4 mg IV every 12 hours and clindamycin 300 mg orally 3 times a day. She was put on lactobacillus probiotics to prevent recurrent C. difficile colitis. After her paracentesis her ascites was treated with Lasix 20 mg orally twice a day along with spironolactone 25 mg twice daily that was titrated up to 50 mg twice daily. She was kept on Carafate and Protonix for her chronic peptic ulcer disease. Patient be discharged with 4 more days of clindamycin 3 mg orally 3 times a day and ciprofloxacin 5 mg twice a day. Patient is advised not to take a more metronidazole. She is also advised to discontinue her doxycycline. She is advised not to take the clindamycin and Cipro within a couple hours of taking her Carafate. Follow-up with Dr. Lavelle Galindo in 1 week. Follow-up with Dr. Diandra Wells or Dr. Angelito Noble in the next month. Patient has been counseled by multiple providers that she absolutely needs to refrain from any further alcohol ingestion. Home Meds and New Rx's Prescriptions: New ciprofloxacin HCl 500 mg tablet 500 mg PO BID 4 Days Qty: 8 0RF clindamycin HCl 300 mg capsule 300 mg PO Q8H 4 Days Qty: 12 0RF spironolactone 25 mg Tablet 50 mg PO BID Qty: 60 0RF furosemide 20 mg Tablet 20 mg PO BID@0830,1600 Qty: 60 0RF Lactobacillus rhamnosus GG 10 billion cell capsule 1 cap PO DAILY Qty: 30 0RF Continued Xiidra 5 % dropperette 1 drp ophthalmic (eye) BID Rx Instructions: administer approximately 12 hours apart venlafaxine 75 mg capsule,extended release 24hr 75 mg PO DAILY Qty: 90 11RF Hold Instructions: Home Medication placed on hold at Doctor's office melatonin 3 mg capsule 3 mg PO .pm PRN (Reason: sleep) Qty: 90 4RF Rx Instructions: take in the middle of the night if you cannot get back to sleep ( total dose per 24 hrs - 9mg) budesonide [Pulmicort] 0.5 mg/2 mL suspension for nebulization 0.5 mg inhalation DAILY Qty: 60 5RF ipratropium-albuterol 0.5 mg-3 mg(2.5 mg base)/3 mL solution for nebulization 3 ml inhalation Q6H PRN quetiapine 25 mg tablet See Rx Instructions PO BID Qty: 30 2RF Rx Instructions: 0.5 tab PO twice a day; multivitamin [Multiple Vitamins] Tablet 1 tab PO DAILY Qty: 90 3RF albuterol sulfate [Ventolin HFA] 90 mcg/actuation HFA aerosol inhaler 2 puff inhalation QID PRN (Reason: shortness of breath or wheezing) Qty: 8.5 1RF amlodipine 10 mg tablet 10 mg PO DAILY Qty: 90 3RF buspirone 5 mg tablet 5 mg PO BID Qty: 60 5RF folic acid 1 mg tablet 1 mg PO DAILY Qty: 90 3RF melatonin 3 mg capsule 6 mg PO HS Qty: 180 3RF metoprolol tartrate 50 mg tablet 50 mg PO DAILY Qty: 90 3RF mirtazapine 7.5 mg tablet 7.5 mg PO QHS Qty: 90 4RF ondansetron 4 mg tablet,disintegrating 4 mg PO Q8H PRN (Reason: nausea and vomiting) Qty: 20 2RF pantoprazole 40 mg tablet,delayed release (DR/EC) 40 mg PO DAILY Qty: 90 3RF sucralfate 1 gram tablet 1 g PO BID Qty: 60 11RF thiamine HCl (vitamin B1) 100 mg tablet 100 mg PO DAILY Qty: 90 3RF valacyclovir [Valtrex] 500 mg tablet 500 mg PO DAILY Qty: 90 3RF Rx Instructions: Take 500 mg BID for 3 days, then take daily fluticasone propionate 50 mcg/actuation spray,suspension 2 spray NS daily prn Qty: 16 5RF carboxymethylcellulose sodium [Refresh Plus] 0.5 % Dropperette 1 drp OU Q4H WHILE AWAKE Qty: 30 0RF Label Comments: 08/15/19 pt states that she took her blister pack of meds but that she vomited them up cyanocobalamin (vitamin B-12) [Vitamin B-12] 500 mcg Tablet 1,000 mcg PO DAILY Qty: 0 0RF pantoprazole 40 mg Tablet,Delayed Release (Dr/Ec) 40 mg PO BID@729,1999 Qty: 60 0RF ferrous sulfate 325 mg (65 mg iron) Tablet 325 mg PO BID Qty: 30 0RF Rx Instructions: do not take within 2 hours of antibiotics Discontinued doxycycline hyclate 100 mg capsule 100 mg PO BID Qty: 20 0RF metronidazole 500 mg tablet 500 mg PO TID Qty: 30 0RF cefpodoxime 100 mg tablet 100 mg PO BID 7 Days Qty: 14 0RF Rx Instructions: must administer with a meal/food Discharge Instructions Instructions: Ciprofloxacin (By mouth), Clindamycin (By mouth), Animal Bite (DC), Cellulitis (DC), Cat Scratch Disease (DC) Additional Instructions: Your prescriptions have been sent to [facility] as you requested. You have been prescribed two different antibiotics to cover both cat scratch as well as cat bite infection of your right hand. Please finish all of your antibiotics which includes 4 more days of clindamycin and ciprofloxacin. do not take these at the same time as your sucralfate or iron supplement as both the sucralfate and iron may bind up the antibiotics and prevent their absorption by your intestines. If you have fever, shaking chills or recurrence of the redness and swelling of your hand, seek immediate medical attention. If you develope zbigniew liang call your PCP. Take the probiotics Lactobacillus for the next 30 days to prevent recurrent C. difficile infection. You have been prescribed lasix (furosemide) and spironolactone to control the ascites (abdominal fluid) caused by cirrhosis of your liver. Please get follow up labs next week to monitor your electrolytes. Referrals: Diandra Wells MD [ [facility] STAFF PHYSICIAN] - 06/15/22 2:00 pm Lavelle Galindo MD [Primary Care Provider] - (Msg left for office to call to set up follow up appt.) Activity:: Activity as Tolerated Equipment/Supplies:: No Equipment Needed Diet:: Normal Diet Discharge Orders Discharge Orders: Discharge Order (Routine); Ordered 06/03/22 Ordered By: Gwyn Blake Other Ambulatory Orders: Basic Metabolic Panel (Routine) Timeframe: 1 Week Facility: [facility] - Location: Laboratory Outpatient - [facility] Ordered By: Gwyn Blake Magnesium (Routine) Timeframe: 1 Week Facility: [facility] - Location: Laboratory Outpatient - [facility] Ordered By: Gwyn Blake DS: Summary Time Spent with Patient providing and/or coordinating discharge services: Greater than 30 minutes Specific discharge activities: 40 Status at Discharge Functional status at discharge: independent ambulation Overall status at discharge: patient is back to baseline Mental Status: mental status grossly normal Speech and Movement: speech and movement normal Mood: congruent mood Affect: normal affect Exam Narrative Exam Narrative: Kaci is sitting up in bed eating her lunch Lungs: clear to ausculatation Heart: regular Abdomen: soft, nontender, nondistended Legs: no edema Right hand and forearm: no redness or induration or pain w/ ROM or palpation Left forearm: no redness or edema, iv site looks ok Psych Mental Status: mental status grossly normal Speech and Movement: speech and movement normal Mood: congruent mood Affect: normal affect DS: Data Vitals/I&O Vitals and I&O: Vital Signs Temperature 36.7 C 06/03/22 07:17 Temperature Source Tympanic 06/03/22 07:17 Pulse 81 06/03/22 07:17 Pulse Rhythm Regular 06/03/22 09:51 Pulse 99 H 05/30/22 12:01 Respiratory Rate 16 06/03/22 07:17 Respiratory Effort 06/03/22 09:51 Respiratory Depth Normal 06/03/22 09:51 Respiratory Pattern Normal 06/03/22 09:51 Blood Pressure 118/73 06/03/22 07:17 Blood Pressure Mean 119 05/30/22 12:01 Blood Pressure Position Supine 05/30/22 09:19 Pulse Oximetry 92 06/03/22 07:17 Oxygen Delivery Method Room Air 06/03/22 11:17 Oxygen Flow Rate 0 06/03/22 11:17 Pain Level 0 06/03/22 07:17 Comment 05/30/22 14:15 Intake & Output 06/02/22 06/03/22 06/03/22 23:59 11:59 23:59 Intake Total 807.083 / 1275.000 440 / 440 Balance 807.083 / 1275.000 440 / 440 Weight 68.9 kg 65.8 kg Intake: IV 447.083 / 665.000 200 / 200 Oral 360 / 610 240 / 240 Other: Urine Color Yellow Yellow Urine Appearance Clear Urine Odor None Normal Comment not an measureable amount Stool Occult Blood Negative Stool Size Small Moderate Stool Characteristics Soft Soft Black Black Voiding Methods Diaper Toilet Incontinent Diaper Incontinent Data Completed and Pending Labs on day of discharge: Preliminary micro results at discharge 05/30/22 12:43 Blood Culture - Preliminary Blood NO GROWTH 72 HOURS 05/30/22 12:30 Blood Culture - Preliminary Blood NO GROWTH 72 HOURS PFS All Active Problems (Updated 06/03/22 @ 13:30 by Gwyn Blake MD) Adverse effect of metronidazole (Acute) Medication monitoring encounter (Acute) Ascites (Acute) Advance care planning (Acute) Discharge planning issues (Acute) DVT prophylaxis (Acute) Cirrhosis of liver with ascites (Acute) Animal bite of right hand with infection (Acute) Urinary tract infection (Acute) Umbilical hernia (Acute) 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 ascites (Acute) Hyperbilirubinemia (Acute) Shortness of breath (Acute) Elevated blood pressure reading without diagnosis of hypertension (Acute) Left arm pain (Acute) Ambulatory dysfunction (Acute) Weakness (Acute) Incontinence (Acute) Urge incontinence (Acute) Anorexia (Acute) Headache (Acute) Onychomycosis (Acute) Depression (Chronic) Chest pain (Acute) Foot pain, right (Acute) Tendinitis of left rotator cuff (Acute) Macrocytosis (Acute 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 Leukopenia (Acute) Headache (Acute) Epigastric abdominal pain (Acute) Calcific tendinitis of left shoulder (Acute) Pulmonary mass (Acute) spiculated mass Pneumonia (Acute) Depression with suicidal ideation (Acute) Alcohol abuse (Chronic) Diarrhea (Acute) Epigastric pain (Acute) Dehydration (Acute) Hypokalemia (Acute) Discharge planning issues (Acute) Palliative care patient (Acute) Difficult intravenous access (Acute) Multiple IV attempts, usually requires ultrasound placement. PTSD (post-traumatic stress disorder) (Acute) Anemia (Chronic) Depression (Chronic) Foot pain, right (Acute) T12 compression fracture (Acute) Presacral mass (Chronic) Deviated nasal septum (Acute) Frequent falls (Chronic) Head injury (Acute) Ambulatory dysfunction (Chronic) Shoulder pain, right (Chronic) DVT prophylaxis (Acute) Suicidal ideation (Acute) Dry eye (Acute) Pruritus (Acute) Dystrophic nail (Acute) AMBER (acute kidney injury) (Acute) Iron deficiency anemia (Chronic) Alcohol abuse (Chronic) Hypomagnesemia (Chronic) Discharge planning issues (Acute) UTI (urinary tract infection) (Acute) Fall (Acute) Atelectasis of left lung (Chronic) Advance directive on file (Acute) Nodule of upper lobe of right lung (Acute ~09/13/18) 09/13/18 [facility]; 12mm SPICULATED -kb Cataract (Chronic 11/07/15) Hypertension (Chronic) high today; she will check readings at home Hyperlipidemia (Chronic) Back pain, chronic (Chronic) Depression (Chronic) Osteopenia (Chronic) Medical History Adjustment disorder with depressed mood Alcoholic ketosis Anemia Cervical radicular pain neck pain and DJD [facility] 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) pls refrain from alcohol Chronic alcoholism she will not stop drinking unless she checks with me, so that we can help her avert withdrawal I do not think she is capable on her own--she would need placement to achieve required goal of 3 months of sobriety Chronic diarrhea Closed right humeral fracture Corneal ulcer, right (~08/23/18) 08/23/18; [facility] Fracture of humerus, left, closed Genital herpes simplex recurrent gential; suppressive Valtrex GERD (gastroesophageal reflux disease) GI bleed (12/20/16) Hypertension Hypokalemia Hypomagnesemia Incidental lung nodule, greater than or equal to 8mm 1cm, spiculated, stable for many years, recommend f/u in 6 mo Multiple rib fractures 03/11/19 [facility] Non-cardiac chest pain (09/21/16) [facility] 09/21/16 NEGATIVE MP Osteoarthritis Palliative care patient (03/21/17) Pancreatitis, alcoholic, acute Peripheral edema Photophobia of right eye Pleural effusion on left 03/11/19 [facility] Presacral mass (~09/15/18) 09/15/18 [facility] Sciatica right, epidural injuections [facility] Tubular adenoma of colon (01/28/17) Urinary incontinence 01/24/13 urethral suspension and sling at [facility] (bladder suspension 1991) 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 Bladder repair. Repair bladder injury, simple Family History Mother No problems noted. Father , DROWNED at age 50. No problems noted. Sister Personal history of malignant neoplasm MELANOMA Sister No problems noted. Grandfather Personal history of malignant neoplasm STOMACH Grandfather Personal history of malignant neoplasm PROSTATE Grandmother Heart disease [place] Acute ill-defined cerebrovascular disease Grandmother Personal history of malignant neoplasm UTERINE Aunt , [place] Heart disease [place] Aunt , [place] Heart disease Brother No problems noted. Social History Smoking/Tobacco Use Status: Former Tobacco Use Quit Date: 08/05/20 Smoking risk assessment performed?: Yes Alcohol Intake: current Alcohol Intake frequency: 3 or more drinks per day Alcohol type: hard liquor Drug use: Never Substance use type: does not use Details: patient states has not had anything to drink for about 5 weeks. patient denies withdrawl symptoms. Current gender identity: female Do you feel safe at home: Yes Do you feel safe in your relationship?: Yes
--- NOTE | 2022-06-03 16:07 | CMDISCH_ITS ---
- If Service Date Differs Date of service: 06/03/22 Time of Service: 16:07 LACE Index Scoring Tool - Questions: Length of Stay (in days): 2 Acuity (Admit via E.D.?): Yes Comorbidities: Any Tumor, Liver or Renal Disease E.D. Visits: 9 - Answers: Total Score: 14 Risk of Readmission: High Risk Care Management Discharge Reason for Hospitalization: nausea, vomiting, biliary leak Discharge Plan: Leticia will return home with no new services. She will be driven home via [email or web address] private vehicle coordinated by CM. She will follow up with her PCP and discharge plan of care. She is happy to be going home. Patient/Family Education Needs: Review discharge instructions and limitations, discussion of self care needs including ask me three. Services Needed at Discharge: Transportation ([email or web address] private vehicle)
== END 2022-06-03 14:44 | disposition home or self-care (01) | DRG 434 ==
LOC: ER 13:30 → MS 20:36
PROVIDERS: Admitting Provider Surgery; Emergency Provider Emergency Medicine; PCP Family Medicine; Visit Provider Internal Medicine
DX: K70.31 Alcoholic cirrhosis of liver with ascites (principal); R11.2 Nausea with vomiting, unspecified; F10.20 Alcohol dependence, uncomplicated; E86.0 Dehydration; E87.6 Hypokalemia; F32.A Depression, unspecified; D50.9 Iron deficiency anemia, unspecified; I10 Essential (primary) hypertension; K21.9 Gastro-esophageal reflux disease without esophagitis; L08.9 Local infection of the skin and subcutaneous tissue, unspecified; Z66 Do not resuscitate; K29.20 Alcoholic gastritis without bleeding; D75.89 Other specified diseases of blood and blood-forming organs; K42.9 Umbilical hernia without obstruction or gangrene; S61.451A Open bite of right hand, initial encounter; W55.01XA Bitten by cat, initial encounter; T37.8X1A Poisoning by other specified systemic anti-infectives and antiparasitics, accidental (unintentional), initial encounter; T51.0X1A Toxic effect of ethanol, accidental (unintentional), initial encounter
CPT/HCPCS: 49082; 36415; 78227; 80048; 80053; 82042; 87040; 87635; 96361; 96365; 96366; 96375; 97161; 97162; 99219; 99225; 99232; 99285; 73130; 76705; 80320; 81003; 81015; 81373; 82247; 82248; 83735; 85025; 85610; 85730; 87070; 87086; 87205; 89051; 94640; 99220; 99226; 99233; 99239; G0378; J0744; J1644; J2270; J2405; J7620; J7626

== ENCOUNTER → 2022-06-18 07:25 | Outpatient (BNVA) | payer MEDICARE, SELFPAY | PROVIDERS: PCP Family Medicine; Referring Provider Family Medicine; Visit Provider Surgery | DX: K74.60 Unspecified cirrhosis of liver (principal); R18.8 Other ascites | CPT/HCPCS: 49082; 99212 ==

== ENCOUNTER 2022-07-01 16:28 | Inpatient (IN) | payer MEDICARE, SELFPAY ==
[2022-07-01] VITALS (59 sets, daily range): BP systolic 123–184; BP diastolic 73–150; PULSE 87–116; RESP 0–26; TEMP 36.6–36.7; O2SAT 84–99
--- NOTE | 2022-07-01 16:30 | RT.EKG_ITS ---
APPROVED REPORT Exam: Resting ECG Reason for Exam: lethargic Patient Location: E HR:102 bpm ECG Measurements Heart Rate 102 AXIS ID 184 P 2 QRSd 81 QRS -28 QT 350 T -15 QTc 456 Conclusion Sinus tachycardia...rate> 99 Inferior infarct, old...Q >35mS, II III aVF Probable anterior infarct, age indeterminate...Q >35mS, T neg, V2-V5 Normal [place] [address] flattening of the precordial lateral leads
--- NOTE | 2022-07-01 16:52 | ED.GENADUL_ITS ---
Discharge Plan Disposition Patient Disposition: [facility] INPATIENT Condition: Serious Discharge Details Clinical Impression: COVID Primary Care Provider: Lavelle Galindo ED Provider: Gloria Alvarez Home Meds and New Rx's Prescriptions: No Action Xiidra 5 % dropperette 1 drp ophthalmic (eye) BID Rx Instructions: administer approximately 12 hours apart venlafaxine 75 mg capsule,extended release 24hr 75 mg PO DAILY Qty: 90 11RF Hold Instructions: Home Medication placed on hold at Doctor's office melatonin 3 mg capsule 3 mg PO .pm PRN (Reason: sleep) Qty: 90 4RF Rx Instructions: take in the middle of the night if you cannot get back to sleep ( total dose per 24 hrs - 9mg) budesonide [Pulmicort] 0.5 mg/2 mL suspension for nebulization 0.5 mg inhalation DAILY Qty: 60 5RF ipratropium-albuterol 0.5 mg-3 mg(2.5 mg base)/3 mL solution for nebulization 3 ml inhalation Q6H PRN quetiapine 25 mg tablet See Rx Instructions PO BID Qty: 30 2RF Rx Instructions: 0.5 tab PO twice a day; lorazepam 1 mg tablet 1 mg PO QHS PRN (Reason: sleep) Qty: 20 0RF multivitamin [Multiple Vitamins] Tablet 1 tab PO DAILY Qty: 90 3RF albuterol sulfate [Ventolin HFA] 90 mcg/actuation HFA aerosol inhaler 2 puff inhalation QID PRN (Reason: shortness of breath or wheezing) Qty: 8.5 1RF amlodipine 10 mg tablet 10 mg PO DAILY Qty: 90 3RF buspirone 5 mg tablet 5 mg PO BID Qty: 60 5RF folic acid 1 mg tablet 1 mg PO DAILY Qty: 90 3RF melatonin 3 mg capsule 6 mg PO HS Qty: 180 3RF metoprolol tartrate 50 mg tablet 50 mg PO DAILY Qty: 90 3RF mirtazapine 7.5 mg tablet 7.5 mg PO QHS Qty: 90 4RF ondansetron 4 mg tablet,disintegrating 4 mg PO Q8H PRN (Reason: nausea and vomiting) Qty: 20 2RF pantoprazole 40 mg tablet,delayed release (DR/EC) 40 mg PO DAILY Qty: 90 3RF sucralfate 1 gram tablet 1 g PO BID Qty: 60 11RF thiamine HCl (vitamin B1) 100 mg tablet 100 mg PO DAILY Qty: 90 3RF valacyclovir [Valtrex] 500 mg tablet 500 mg PO DAILY Qty: 90 3RF Rx Instructions: Take 500 mg BID for 3 days, then take daily fluticasone propionate 50 mcg/actuation spray,suspension 2 spray NS daily prn Qty: 16 5RF molnupiravir 200 mg capsule 800 mg PO Q12H 5 Days Qty: 40 0RF carboxymethylcellulose sodium [Refresh Plus] 0.5 % Dropperette 1 drp OU Q4H WHILE AWAKE Qty: 30 0RF Label Comments: 08/15/19 pt states that she took her blister pack of meds but that she vomit ed them up cyanocobalamin (vitamin B-12) [Vitamin B-12] 500 mcg Tablet 1,000 mcg PO DAILY Qty: 0 0RF pantoprazole 40 mg Tablet,Delayed Release (Dr/Ec) 40 mg PO BID@0730,2000 Qty: 60 0RF spironolactone 25 mg Tablet 50 mg PO BID Qty: 60 0RF furosemide 20 mg Tablet 20 mg PO BID@0830,1600 Qty: 60 0RF Lactobacillus rhamnosus GG 10 billion cell capsule 1 cap PO DAILY Qty: 30 0RF ferrous sulfate 325 mg (65 mg iron) Tablet 325 mg PO BID Qty: 30 0RF Rx Instructions: do not take within 2 hours of antibiotics Medical Decision Making 77-year-old female with past medical history of adjustment disorder, alcoholic ketosis, anemia, alcoholic gastritis, hypertension, hypokalemia, pancreatitis, ascites presents to the ER with chief complaint of altered mental status after being diagnosed with COVID 5 days ago. Upon initial presentation she is alert and oriented x2, she reports that she been feeling bad for the last 5 days. Work-up ordered including CBC CMP, troponin, blood alcohol level procalcitonin chest x-ray and urinalysis. 1735: O2 sat room air 86% will place on 2 L nasal cannula. White blood cells are 3.75 which is at patient's baseline, platelets are 109, PT/INR within normal limits D-dimer is elevated at 4988, sodium potassium within normal limits, anion gap 12.0 bilirubin 1.6 AST 94 ALT 42 alk phos 136, initial troponin within normal limits, urinalysis shows small bilirubin, 15 ketones 10- 20 WBCs however this is squamous contaminated. Ethyl alcohol is 153.[address] chest rule out PE ordered due to elevated D-dimer and COVID-positive. 2210: Informed by nurse staff, patient 87% on room air for room air trial. She has had multiple episodes of diarrhea while being here. She is currently cleaned up. 2233: Spoke with Dr. Joy regarding request for admission due to hypoxia and COVID-19. CTA chest shows no PE, there is mild bronchial wall thickening, patchy alveolar opacities in the dependent lung gatica bilaterally may represent pneumonia versus atelectasis. See report for additional findings. Medical Records Medical records reviewed: Yes I reviewed the patient's medical records. Imaging Data Radiologic Study: Imaging: X-Ray Radiologist's impression: FINDINGS: Lungs: Low lung volumes. Mild central vascular congestion. Faint opacity in the peripheral left lung base could be due to basilar airspace disease such as atelectasis or pneumonia, versus attenuation from cardiomegaly and lordotic projection. Pleural spaces: No pleural effusion. No pneumothorax. Heart/Mediastinum: Mild cardiomegaly. Bones/joints: Osteopenia. Minimally displaced fractures of the right lateral 7th and 8th ribs may be acute. Chronic posttraumatic or postsurgical changes at the distal clavicles, unchanged in appearance. Numerous bilateral chronic rib fractures again noted. IMPRESSION: 1. Question mild alveolar density in the peripheral left base which could represent atelectasis, pneumonia, or cardiac attenuation related to cardiomegaly and lordotic projection. 2. Mildly displaced fractures of the right lateral 7th and 8th ribs may be acute. There are numerous bilateral chronic rib fractures present, and chronic posttraumatic or postsurgical changes in both distal clavicles. No pneumothorax. Thank you for allowing us to participate in the care of your patient. Radiologic Study #2: Imaging: CT Scan Radiologist's impression: IMPRESSION: 1. No evidence of pulmonary embolism or aortic dissection. Mild changes of pulmonary arterial hypertension. 2. Borderline mild aneurysmal dilatation of the ascending aortic segment at 4.0 cm diameter. No rupture. 3. Mild bronchial wall thickening in the basilar distributions suggesting mild changes of bronchitis or bronchial edema. 4. Patchy alveolar opacities in the dependent lung gatica bilaterally. This is somewhat rounded in the posterior right upper lobe and might represent an element of pneumonia, versus rounded atelectasis. 5. Borderline enlarged subcarinal and right hilar nodes, nonspecific. 6. A 16 mm ovoid nodule at the posterior margin of the right thyroid lobe could represent a pedunculated thyroid nodule versus enlarged parathyroid gland or paratracheal node. Recommend nonemergent thyroid ultrasound assessment. 7. Moderate cardiomegaly and mild coronary artery calcification. 8. Severe fatty infiltration of the liver with suspected hepatomegaly, partially visualized. 9. Large volume simple ascites in the upper abdomen. 10. Chronic bilateral rib fractures and chronic right humeral head articular fracture with suspected underlying chronic AVN. 11. Additional nonemergent findings detailed above. Lab Data Lab results reviewed: Yes I reviewed the patient's lab results. Labs: 07/01/22 17:55 Urine - Reflex from Ua Urine Culture - Pending Laboratory Tests Range/Units 07/01/22 07/01/22 07/01/22 17:55 17:55 19:15 WBC (4.4-10.8) 10^3/uL RBC (3.93-5.22) 10^6/uL Hgb (11.2-15.7) g/dL Hct (36.0-46.0) % MCV (80-95) fL MCH (27.0-33.0) pg MCHC (32.0-36.0) % RDW (11.7-14.6) % Plt Count (130-400) 10^3/uL MPV (8.0-11.0) fL Immature Gran % Neutrophils % Lymphocytes % Monocytes % Eosinophils % Basophils % Nucleated RBC % (0.0-0.3) % Absolute Neutrophils (1.2-6.7) 10^3/uL Absolute Lymphocytes (1.2-3.4) 10^3/uL Absolute Monocytes (0.1-0.8) 10^3/uL Absolute Eosinophils (0.0-0.7) 10^3/uL Absolute Basophils (0.0-0.2) 10^3/uL Anisocytosis PT (9.3-11.0) sec INR (0.9-1.1) APTT (21.0-27.5) sec D-Dimer (<500) ng/mlFEU Sodium (136-145) mmol/L 143 Potassium (3.5-5.1) mmol/L 4.2 Chloride (98-107) mmol/L 106 Carbon Dioxide (21.0-32.0) mmol/L 25.0 Anion Gap (3-11) mmol/L 12.0 H BUN (7-18) mg/dL 16 Creatinine (0.55-1.02) mg/dL 1.0 Est GFR (CKD-EPI 2020) (mL/min/1.73m2) 58.39 Glucose (74-106) mg/dL 85 Calcium (8.5-10.1) mg/dL 9.3 Magnesium (1.8-2.4) mg/dL 1.8 Total Bilirubin (0.2-1.0) mg/dL 1.6 H AST (15-37) U/L 94 H ALT (14-59) U/L 42 Alkaline Phosphatase (46-116) U/L 136 H Troponin I (<or=60) ng/L < 50 Total Protein (6.4-8.2) g/dL 6.6 Albumin (3.4-5.0) g/dL 3.3 L Procalcitonin ng/mL Urine Color (Yellow) Yellow Urine Clarity (Clear) Clear Urine pH (5-8) 6.5 Ur Specific [place] (1.005-1.025) >= 1.030 H Urine Protein (Negative) mg/dL 30 H Urine Ketones (Negative) mg/dL 15 H Urine Blood (Negative) Negative Urine Nitrite (Negative) Negative Urine Bilirubin (Negative) Small H Urine Urobilinogen (Up TO 0.2) EU/dL 1.0 H Ur Leukocyte Esterase (Negative) Negative Urine RBC (0-2) HPF Negative Urine WBC (0-5) HPF 10-20 H Ur Epithelial Cells (Negative) HPF Few Urine Crystals (Negative) HPF Negative Urine Bacteria (Negative) HPF Few Urine Casts (Negative) LPF Negative Urine Mucus (Negative) Negative Ur Culture Indicated? Yes Urine Glucose (Negative) mg/dL Negative Urine Opiates Screen (Negative) Negative Urine Methadone Screen (Negative) Negative Ur Barbiturates Screen (Negative) Negative Ur Tricyclics Screen (Negative) Negative Ur Amphetamines Screen (Negative) Negative U Benzodiazepines Scrn (Negative) Negative Urine Cocaine Screen (Negative) Negative Ur THC Screen (Negative) Negative Ethyl Alcohol (<10) mg/dL 153.0 H Range/Units 07/01/22 07/01/22 07/01/22 19:15 19:15 19:15 WBC (4.4-10.8) 10^3/uL 3.75 L RBC (3.93-5.22) 10^6/uL 4.07 Hgb (11.2-15.7) g/dL 12.0 Hct (36.0-46.0) % 38.8 MCV (80-95) fL 95 MCH (27.0-33.0) pg 29.5 MCHC (32.0-36.0) % 30.9 L RDW (11.7-14.6) % 21.2 H Plt Count (130-400) 10^3/uL 109 L MPV (8.0-11.0) fL 8.9 Immature Gran % 0.8 Neutrophils % 58.9 Lymphocytes % 32.0 Monocytes % 6.7 Eosinophils % 0.8 Basophils % 0.8 Nucleated RBC % (0.0-0.3) % 0.0 Absolute Neutrophils (1.2-6.7) 10^3/uL 2.21 Absolute Lymphocytes (1.2-3.4) 10^3/uL 1.20 Absolute Monocytes (0.1-0.8) 10^3/uL 0.25 Absolute Eosinophils (0.0-0.7) 10^3/uL 0.03 Absolute Basophils (0.0-0.2) 10^3/uL 0.03 Anisocytosis 1+ PT (9.3-11.0) sec 10.4 INR (0.9-1.1) 1.0 APTT (21.0-27.5) sec 25.5 D-Dimer (<500) ng/mlFEU 4988 H Sodium (136-145) mmol/L Potassium (3.5-5.1) mmol/L Chloride (98-107) mmol/L Carbon Dioxide (21.0-32.0) mmol/L Anion Gap (3-11) mmol/L BUN (7-18) mg/dL Creatinine (0.55-1.02) mg/dL Est GFR (CKD-EPI 2020) (mL/min/1.73m2) Glucose (74-106) mg/dL Calcium (8.5-10.1) mg/dL Magnesium (1.8-2.4) mg/dL Total Bilirubin (0.2-1.0) mg/dL AST (15-37) U/L ALT (14-59) U/L Alkaline Phosphatase (46-116) U/L Troponin I (<or=60) ng/L Total Protein (6.4-8.2) g/dL Albumin (3.4-5.0) g/dL Procalcitonin ng/mL < 0.1 Urine Color (Yellow) Urine Clarity (Clear) Urine pH (5-8) Ur Specific [place] (1.005-1.025) Urine Protein (Negative) mg/dL Urine Ketones (Negative) mg/dL Urine Blood (Negative) Urine Nitrite (Negative) Urine Bilirubin (Negative) Urine Urobilinogen (Up TO 0.2) EU/dL Ur Leukocyte Esterase (Negative) Urine RBC (0-2) HPF Urine WBC (0-5) HPF Ur Epithelial Cells (Negative) HPF Urine Crystals (Negative) HPF Urine Bacteria (Negative) HPF Urine Casts (Negative) LPF Urine Mucus (Negative) Ur Culture Indicated? Urine Glucose (Negative) mg/dL Urine Opiates Screen (Negative) Urine Methadone Screen (Negative) Ur Barbiturates Screen (Negative) Ur Tricyclics Screen (Negative) Ur Amphetamines Screen (Negative) U Benzodiazepines Scrn (Negative) Urine Cocaine Screen (Negative) Ur THC Screen (Negative) Ethyl Alcohol (<10) mg/dL Range/Units 07/01/22 21:40 WBC (4.4-10.8) 10^3/uL RBC (3.93-5.22) 10^6/uL Hgb (11.2-15.7) g/dL Hct (36.0-46.0) % MCV (80-95) fL MCH (27.0-33.0) pg MCHC (32.0-36.0) % RDW (11.7-14.6) % Plt Count (130-400) 10^3/uL MPV (8.0-11.0) fL Immature Gran % Neutrophils % Lymphocytes % Monocytes % Eosinophils % Basophils % Nucleated RBC % (0.0-0.3) % Absolute Neutrophils (1.2-6.7) 10^3/uL Absolute Lymphocytes (1.2-3.4) 10^3/uL Absolute Monocytes (0.1-0.8) 10^3/uL Absolute Eosinophils (0.0-0.7) 10^3/uL Absolute Basophils (0.0-0.2) 10^3/uL Anisocytosis PT (9.3-11.0) sec INR (0.9-1.1) APTT (21.0-27.5) sec D-Dimer (<500) ng/mlFEU Sodium (136-145) mmol/L Potassium (3.5-5.1) mmol/L Chloride (98-107) mmol/L Carbon Dioxide (21.0-32.0) mmol/L Anion Gap (3-11) mmol/L BUN (7-18) mg/dL Creatinine (0.55-1.02) mg/dL Est GFR (CKD-EPI 2020) (mL/min/1.73m2) Glucose (74-106) mg/dL Calcium (8.5-10.1) mg/dL Magnesium (1.8-2.4) mg/dL Total Bilirubin (0.2-1.0) mg/dL AST (15-37) U/L ALT (14-59) U/L Alkaline Phosphatase (46-116) U/L Troponin I (<or=60) ng/L < 50 Total Protein (6.4-8.2) g/dL Albumin (3.4-5.0) g/dL Procalcitonin ng/mL Urine Color (Yellow) Urine Clarity (Clear) Urine pH (5-8) Ur Specific [place] (1.005-1.025) Urine Protein (Negative) mg/dL Urine Ketones (Negative) mg/dL Urine Blood (Negative) Urine Nitrite (Negative) Urine Bilirubin (Negative) Urine Urobilinogen (Up TO 0.2) EU/dL Ur Leukocyte Esterase (Negative) Urine RBC (0-2) HPF Urine WBC (0-5) HPF Ur Epithelial Cells (Negative) HPF Urine Crystals (Negative) HPF Urine Bacteria (Negative) HPF Urine Casts (Negative) LPF Urine Mucus (Negative) Ur Culture Indicated? Urine Glucose (Negative) mg/dL Urine Opiates Screen (Negative) Urine Methadone Screen (Negative) Ur Barbiturates Screen (Negative) Ur Tricyclics Screen (Negative) Ur Amphetamines Screen (Negative) U Benzodiazepines Scrn (Negative) Urine Cocaine Screen (Negative) Ur THC Screen (Negative) Ethyl Alcohol (<10) mg/dL HPI General Mode of arrival: EMS . Date/Time Provider Initiated Documentation: 07/01/22 16:36 . Limitations to Documentation: altered mental status . Information obtained by: patient, EMS, RN notes reviewed and old records reviewed . HPI Narrative: 77-year-old female with past medical history of adjustment disorder, alcoholic ketosis, anemia, alcoholic gastritis, hypertension, hypokalemia, pancreatitis, ascites presents to the ER with chief complaint of altered mental status after being diagnosed with COVID 5 days ago. Upon initial presentation she is alert and oriented x2, she reports that she been feeling bad for the last 5 days. She also endorses diarrhea. She states that she hurts all over. She did have a COVID booster from her PCP on June 10. When asked regarding alcohol intake she reports not much she is currently satting 92% on room air. Related Data Home Medications Medication Instructions Recorded Confirmed carboxymethylcellulose sodium 0.5 1 drp OU Q4H WHILE AWAKE #30 ea 06/20/19 07/01/22 % eye drops in a dropperette (Refresh Plus) lifitegrast 5 % eye drops in a 1 drp ophthalmic (eye) BID 08/05/20 07/01/22 dropperette (Xiidra) multivitamin (Multiple Vitamins 1 tab PO DAILY #90 tabs 09/05/20 07/01/22 tablet) venlafaxine 75 mg capsule,extended 75 mg PO DAILY #90 caps 08/05/21 07/01/22 release 24 hr ipratropium 0.5 mg-albuterol 3 mg 3 ml inhalation Q6H PRN 12/25/21 07/01/22 (2.5 mg base)/3 mL nebulization soln quetiapine 25 mg tablet See Rx Instructions PO BID #30 tabs 12/29/21 07/01/22 albuterol sulfate 90 mcg/actuation 2 puff inhalation QID PRN 02/08/22 07/01/22 aerosol inhaler (Ventolin HFA) shortness of breath or wheezing #8.5 grams amlodipine 10 mg tablet 10 mg PO DAILY #90 tabs 02/08/22 07/01/22 buspirone 5 mg tablet 5 mg PO BID #60 tabs 02/08/22 07/01/22 folic acid 1 mg tablet 1 mg PO DAILY #90 tabs 02/08/22 07/01/22 melatonin 3 mg capsule 6 mg PO HS #180 caps 02/08/22 07/01/22 metoprolol tartrate 50 mg tablet 50 mg PO DAILY #90 tabs 02/08/22 07/01/22 mirtazapine 7.5 mg tablet 7.5 mg PO QHS #90 tabs 02/08/22 07/01/22 ondansetron 4 mg disintegrating 4 mg PO Q8H PRN nausea and 02/08/22 07/01/22 tablet vomiting #20 tabs pantoprazole 40 mg tablet,delayed 40 mg PO DAILY #90 tabs 02/08/22 07/01/22 release sucralfate 1 gram tablet 1 g PO BID #60 tabs 02/08/22 07/01/22 thiamine HCl (vitamin B1) 100 mg 100 mg PO DAILY #90 tabs 02/08/22 07/01/22 tablet valacyclovir 500 mg tablet 500 mg PO DAILY #90 tabs 02/08/22 07/01/22 (Valtrex) fluticasone propionate 50 2 spray NS daily prn #16 grams 03/06/22 07/01/22 mcg/actuation nasal spray,suspension budesonide 0.5 mg/2 mL suspension 0.5 mg (2 mL) inhalation DAILY #60 05/06/22 07/01/22 for nebulization (Pulmicort) mL melatonin 3 mg capsule 3 mg PO .pm PRN sleep #90 caps 05/12/22 07/01/22 cyanocobalamin (vitamin B-12) 500 1,000 mcg PO DAILY #0 tabs 05/21/22 07/01/22 mcg tablet (Vitamin B-12) pantoprazole 40 mg tablet,delayed 40 mg PO BID@0730,2000 #60 tabs 05/21/22 07/01/22 release Lactobacillus rhamnosus GG 10 1 cap PO DAILY #30 caps 06/03/22 07/01/22 billion cell capsule ferrous sulfate 325 mg (65 mg 325 mg PO BID #30 tabs 06/03/22 07/01/22 iron) tablet furosemide 20 mg tablet 20 mg PO BID@0830,1600 #60 tabs 06/03/22 07/01/22 spironolactone 25 mg tablet 50 mg PO BID #60 tabs 06/03/22 07/01/22 lorazepam 1 mg tablet 1 mg PO QHS PRN sleep #20 tabs 06/10/22 07/01/22 molnupiravir 200 mg capsule (EUA) 800 mg PO Q12H 5 days #40 caps 07/01/22 07/01/22 Previous Rx's Medication Instructions Recorded carboxymethylcellulose sodium 0.5 1 drp OU Q4H WHILE AWAKE #30 ea 06/20/19 % eye drops in a dropperette (Refresh Plus) multivitamin (Multiple Vitamins 1 tab PO DAILY #90 tabs 09/05/20 tablet) venlafaxine 75 mg capsule,extended 75 mg PO DAILY #90 caps 08/05/21 release 24 hr quetiapine 25 mg tablet See Rx Instructions PO BID #30 tabs 12/29/21 albuterol sulfate 90 mcg/actuation 2 puff inhalation QID PRN 02/08/22 aerosol inhaler (Ventolin HFA) shortness of breath or wheezing #8.5 grams amlodipine 10 mg tablet 10 mg PO DAILY #90 tabs 02/08/22 buspirone 5 mg tablet 5 mg PO BID #60 tabs 02/08/22 folic acid 1 mg tablet 1 mg PO DAILY #90 tabs 02/08/22 melatonin 3 mg capsule 6 mg PO HS #180 caps 02/08/22 metoprolol tartrate 50 mg tablet 50 mg PO DAILY #90 tabs 02/08/22 mirtazapine 7.5 mg tablet 7.5 mg PO QHS #90 tabs 02/08/22 ondansetron 4 mg disintegrating 4 mg PO Q8H PRN nausea and 02/08/22 tablet vomiting #20 tabs pantoprazole 40 mg tablet,delayed 40 mg PO DAILY #90 tabs 02/08/22 release sucralfate 1 gram tablet 1 g PO BID #60 tabs 02/08/22 thiamine HCl (vitamin B1) 100 mg 100 mg PO DAILY #90 tabs 02/08/22 tablet valacyclovir 500 mg tablet 500 mg PO DAILY #90 tabs 02/08/22 (Valtrex) fluticasone propionate 50 2 spray NS daily prn #16 grams 03/06/22 mcg/actuation nasal spray,suspension budesonide 0.5 mg/2 mL suspension 0.5 mg (2 mL) inhalation DAILY #60 05/06/22 for nebulization (Pulmicort) mL melatonin 3 mg capsule 3 mg PO .pm PRN sleep #90 caps 05/12/22 cyanocobalamin (vitamin B-12) 500 1,000 mcg PO DAILY #0 tabs 05/21/22 mcg tablet (Vitamin B-12) pantoprazole 40 mg tablet,delayed 40 mg PO BID@0730,2000 #60 tabs 05/21/22 release Lactobacillus rhamnosus GG 10 1 cap PO DAILY #30 caps 06/03/22 billion cell capsule ferrous sulfate 325 mg (65 mg 325 mg PO BID #30 tabs 06/03/22 iron) tablet furosemide 20 mg tablet 20 mg PO BID@0830,1600 #60 tabs 06/03/22 spironolactone 25 mg tablet 50 mg PO BID #60 tabs 06/03/22 lorazepam 1 mg tablet 1 mg PO QHS PRN sleep #20 tabs 06/10/22 molnupiravir 200 mg capsule (EUA) 800 mg PO Q12H 5 days #40 caps 07/01/22 Allergies Allergy/AdvReac Type Severity Reaction Status Date / Time Penicillins Allergy Mild Rash Verified 07/01/22 19:26 ramipril Allergy Unknown ITCHING Verified 07/01/22 19:26 meperidine [From Demerol] AdvReac Severe Nausea Verified 07/01/22 19:26 bupropion AdvReac Mild GI upset Verified 07/01/22 19:26 AMBER Inhibitors AdvReac Unknown COUGH Verified 07/01/22 19:26 alendronate sodium AdvReac Unknown GI Distress Verified 07/01/22 19:26 clarithromycin AdvReac Unknown intolerant Verified 07/01/22 19:26 paroxetine AdvReac Unknown Diarrhea Verified 07/01/22 19:26 General Stated Complaint: AMS/LOC JORDAN: 2 Review of Systems All systems reviewed & are unremarkable except as noted in HPI and below Constitutional Constitutional: Reports body ache(s), Reports fatigue and Denies headache(s) ENT Ears, Nose, Mouth, and Throat: Denies headache(s) Gastrointestinal Gastrointestinal: Denies abdominal pain, Reports diarrhea, Denies nausea and Denies vomiting Neurologic Neurologic: Denies headache(s) Endocrine Endocrine: Reports fatigue PFSH All Active Problems (Updated 07/01/22 @ 23:28 by Gloria Alvarez NP) COVID (Acute) Anxiety (Chronic) Adverse effect of metronidazole (Acute) Medication monitoring encounter (Acute) Ascites (Acute) Advance care planning (Acute) Cirrhosis of liver with ascites (Acute) Animal bite of right hand with infection (Acute) Umbilical hernia (Acute) 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 ascites (Acute) Hyperbilirubinemia (Acute) Shortness of breath (Acute) Elevated blood pressure reading without diagnosis of hypertension (Acute) Left arm pain (Acute) Ambulatory dysfunction (Acute) Incontinence (Acute) Urge incontinence (Acute) Anorexia (Acute) Headache (Acute) Onychomycosis (Acute) Depression (Chronic) Chest pain (Acute) Foot pain, right (Acute) Tendinitis of left rotator cuff (Acute) Macrocytosis (Acute 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 Leukopenia (Acute) Headache (Acute) Epigastric abdominal pain (Acute) Calcific tendinitis of left shoulder (Acute) Pulmonary mass (Acute) spiculated mass Pneumonia (Acute) Depression with suicidal ideation (Acute) Alcohol abuse (Chronic) Diarrhea (Acute) Epigastric pain (Acute) Dehydration (Acute) Hypokalemia (Acute) Discharge planning issues (Acute) Palliative care patient (Acute) Difficult intravenous access (Acute) Multiple IV attempts, usually requires ultrasound placement. PTSD (post-traumatic stress disorder) (Acute) Anemia (Chronic) Depression (Chronic) Foot pain, right (Acute) T12 compression fracture (Acute) Presacral mass (Chronic) Deviated nasal septum (Acute) Frequent falls (Chronic) Head injury (Acute) Ambulatory dysfunction (Chronic) Shoulder pain, right (Chronic) DVT prophylaxis (Acute) Suicidal ideation (Acute) Dry eye (Acute) Pruritus (Acute) Dystrophic nail (Acute) AMBER (acute kidney injury) (Acute) Iron deficiency anemia (Chronic) Alcohol abuse (Chronic) Hypomagnesemia (Chronic) Discharge planning issues (Acute) UTI (urinary tract infection) (Acute) Fall (Acute) Atelectasis of left lung (Chronic) Advance directive on file (Acute) Nodule of upper lobe of right lung (Acute ~09/13/18) 09/13/18 [facility]; 12mm SPICULATED -kb Cataract (Chronic 11/07/15) Hypertension (Chronic) high today; she will check readings at home Hyperlipidemia (Chronic) Back pain, chronic (Chronic) Depression (Chronic) Osteopenia (Chronic) Medical History Adjustment disorder with depressed mood Alcoholic ketosis Anemia Cervical radicular pain neck pain and [facility] 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) pls refrain from alcohol Chronic alcoholism she will not stop drinking unless she checks with me, so that we can help her avert withdrawal I do not think she is capable on her own--she would need placement to achieve required goal of 3 months of sobriety Chronic diarrhea Closed right humeral fracture Corneal ulcer, right (~08/23/18) 08/23/18; [facility]- Fracture of humerus, left, closed Genital herpes simplex recurrent gential; suppressive Valtrex GERD (gastroesophageal reflux disease) GI bleed (12/20/16) Hypertension Hypokalemia Hypomagnesemia Incidental lung nodule, greater than or equal to 8mm 1cm, spiculated, stable for many years, recommend f/u in 6 mo Multiple rib fractures 03/11/19 [facility] Non-cardiac chest pain (09/21/16) [facility] 09/21/16 NEGATIVE MP Osteoarthritis Palliative care patient (03/21/17) Pancreatitis, alcoholic, acute Peripheral edema Photophobia of right eye Pleural effusion on left 03/11/19 [facility] Presacral mass (~09/15/18) 09/15/18 [facility] Sciatica right, epidural injuections [facility] Tubular adenoma of colon (01/28/17) Urinary incontinence 01/24/13 urethral suspension and sling at [facility] (bladder suspension 1991) 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 Bladder repair. Repair bladder injury, simple Family History Mother No problems noted. Father , DROWNED at age 50. No problems noted. Sister Personal history of malignant neoplasm MELANOMA Sister No problems noted. Grandfather Personal history of malignant neoplasm STOMACH Grandfather Personal history of malignant neoplasm PROSTATE Grandmother Heart disease DC Acute ill-defined cerebrovascular disease Grandmother Personal history of malignant neoplasm UTERINE Aunt , DC Heart disease DC Aunt , DC Heart disease Brother No problems noted. Social History Smoking/Tobacco Use Status: Former Tobacco Use Quit Date: 08/05/20 Smoking risk assessment performed?: Yes Alcohol Intake: current Alcohol Intake frequency: 3 or more drinks per day Alcohol type: hard liquor Drug use: Never Substance use type: does not use Current gender identity: female Do you feel safe at home: Yes Do you feel safe in your relationship?: Yes Exam Narrative Exam Narrative: Constitutional: Alert and oriented x2. Appears stated age. Normal body habitus. Head: Normocephalic, no trauma. Eyes: Pupils PERRL, Red reflex noted, EOM's intact. Eyelids symmetrical without lesions, discharge, or swelling. ENT: Bilateral TM's WNL, External ear normal to inspection, no mastoid TTP, swelling, or erythema, Nasal turbinates WNL, no nasal discharge. Normal dentition, Posterior pharynx WNL, no exudate. Chest: RRR, Normal S1, S2, distal pulses intact. Resp: Lungs clear to auscultation bilaterally, no wheezes, rales, or rhonchi. Abdomen: Soft, appears distended she last had a paracentesis on June 18. Musculoskeletal: Normal gait, 5/5 strength to all four extremities. Skin: No suspicious rashes or lesions. Capillary refill less than 2 sec. Neurologic: Cranial nerves II-XII intact. Alert and oriented x 2. Motor: No d eficits noted. Sensory: Intact bilaterally all 4 extremities. Hematologic/Lymphatic: No ecchymosis, no lymphadenopathy. Course Vital Signs Vital signs: Vital Signs Temperature 36.6 C 07/01/22 16:30 Pulse 92 H 07/01/22 16:30 Respiratory Rate 20 07/01/22 16:30 Blood Pressure 166/99 H 07/01/22 16:30 Pulse Oximetry 107 H 07/01/22 16:30 Temperature 36.6 C 07/01/22 16:30 Temperature Source Temporal Artery Scan 07/01/22 16:30 Pulse 92 H 07/01/22 16:30 Respiratory Rate 20 07/01/22 16:30 Respiratory Effort Non-Labored 07/01/22 16:39 Blood Pressure 166/99 H 07/01/22 16:30 Pulse Oximetry 107 H 07/01/22 16:30 Oxygen Delivery Method Room Air 07/01/22 16:30 Oxygen Flow Rate 0 07/01/22 16:30 Pain Level 0 07/01/22 16:30
[2022-07-01 18:05] LABS: Bilirubin Small (Negative); Blood Negative (Negative); Clarity Clear (Clear); Glucose Negative (Negative); Ketones 15 mg/dL (Negative); Leukocyte Esterase Negative (Negative); Nitrite Negative (Negative); Specific Gravity >= 1.030 (1.005-1.025); pH 6.5 (5-8)
[2022-07-01 18:08] LABS: Bacteria Few HPF (Negative); C & S Indicated? Yes; Casts Negative LPF (Negative); Crystals Negative HPF (Negative); Epithelial Cells Few HPF (Negative); Mucus Negative (Negative); RBC Negative HPF (0-2)
[2022-07-01 18:27] LABS: *AMPHETAMINES SCREEN URINE Negative (Negative); *BARBITURATES SCREEN URINE Negative (Negative); *BENZODIAZEPINES SCREEN URINE Negative (Negative); Cannabinoids THC Negative (Negative); Cocaine Screen,Urine Negative (Negative); METHADONE URINE SCREEN Negative (Negative); OPIATES URINE SCREEN Negative (Negative)
[2022-07-01 18:28] LABS: Tricyclic Antidepressants Negative (Negative)
--- NOTE | 2022-07-01 18:50 | DI.RAD_ITS ---
Exam(s) XR PORTABLE CHEST AP EXAM: XR PORTABLE CHEST AP CLINICAL HISTORY: Covid +, AMS. TECHNIQUE: 2D digital imaging was performed. COMPARISON: CR,XR XR CHEST 2V PA LATERAL from 05/13/2022 FINDINGS: Single AP portable view. Cardiomegaly again noted. The mediastinum is not widened. No obvious confluent infiltrates nor pleural effusions. Multiple right-sided rib fractures are noted , not previously evident. Some of these have acute appearance. There is no pneumothorax. Again noted is surgical partial resection of the left clavicle laterally and deformity of the lateral aspect of the opposite-right clavicle. IMPRESSION: No confluent infiltrates.Cardiomegaly. No pulmonary edema. Multiple right-sided rib fractures, some of which may be acute or subacute. DATA REPOSITORY: RADIATION DOSE DELIVERED:
--- NOTE | 2022-07-01 19:16 | DI.VRAD_ITS ---
PROCEDURE INFORMATION: Exam: XR Chest Exam date and time: 07/01/2022 6:29 PM Age: 77 years old Clinical indication: Other: Covid +, AMS TECHNIQUE: Imaging protocol: Radiologic exam of the chest. Views: 1 view. COMPARISON: CR XR CHEST 2V PA LATERAL 05/13/2022 1:25 AM FINDINGS: Lungs: Low lung volumes. Mild central vascular congestion. Faint opacity in the peripheral left lung base could be due to basilar airspace disease such as atelectasis or pneumonia, versus attenuation from cardiomegaly and lordotic projection. Pleural spaces: No pleural effusion. No pneumothorax. Heart/Mediastinum: Mild cardiomegaly. Bones/joints: Osteopenia. Minimally displaced fractures of the right lateral 7th and 8th ribs may be acute. Chronic posttraumatic or postsurgical changes at the distal clavicles, unchanged in appearance. Numerous bilateral chronic rib fractures again noted. IMPRESSION: 1. Question mild alveolar density in the peripheral left base which could represent atelectasis, pneumonia, or cardiac attenuation related to cardiomegaly and lordotic projection. 2. Mildly displaced fractures of the right lateral 7th and 8th ribs may be acute. There are numerous bilateral chronic rib fractures present, and chronic posttraumatic or postsurgical changes in both distal clavicles. No pneumothorax. Dictated and Authenticated by: Clarence Phipps MD. Ordering:CAMDEN Castro MD
[2022-07-01] MEDS: Albuterol/Ipratropium 3 ML UPD VIAL UPD (19:17)
[2022-07-01 19:24] LABS: Abs Immature Grans 0.03 10^3/uL (0.0-0.06); Absolute Basophil Count 0.03 10^3/uL (0.0-0.2); Absolute Eosinophil Count 0.03 10^3/uL (0.0-0.7); Absolute Monocyte Count 0.25 10^3/uL (0.1-0.8); Absolute Neutrophil Count 2.21 10^3/uL (1.2-6.7); Basophils % 0.8; Eosinophils % 0.8; HCT 38.8 % (36.0-46.0); Immature Grans % 0.8; MCH 29.5 pg (27.0-33.0); MCHC 30.9 % (32.0-36.0); MCV 95 fL (80-95); MPV 8.9 fL (8.0-11.0); Monocytes % 6.7; Neutrophils % 58.9; Platelet Count 109 10^3/uL (130-400); RBC 4.07 10^6/uL (3.93-5.22); RDW 21.2 % (11.7-14.6); RDW-SD 74.3 fL; WBC 3.75 10^3/uL (4.4-10.8)
[2022-07-01 19:36] LABS: PTT Activated 25.5 sec (21.0-27.5); Prothrombin Time 10.4 sec (9.3-11.0)
[2022-07-01 19:40] LABS: ALT 42 U/L (14-59); AST 94 U/L (15-37); Albumin 3.3 g/dL (3.4-5.0); Alkaline Phosphatase 136 U/L (46-116); BUN 16 mg/dL (7-18); Bilirubin, Total 1.6 mg/dL (0.2-1.0); Calcium 9.3 mg/dL (8.5-10.1); Chloride 106 mmol/L (98-107); Estimated GFR 58.39 (mL/min/1.73m2); Glucose 85 mg/dL (74-106); Magnesium 1.8 mg/dL (1.8-2.4); Potassium 4.2 mmol/L (3.5-5.1); Sodium 143 mmol/L (136-145); Total Protein 6.6 g/dL (6.4-8.2); Troponin I < 50 ng/L (<or=60)
[2022-07-01 19:59] LABS: Anisocytosis 1+; Diff Comment RBC Morph Reviewed
[2022-07-01 20:13] LABS: D-Dimer 4988 ng/mlFEU (<500)
[2022-07-01 20:34] LABS: Procalcitonin < 0.1 ng/mL
[2022-07-01] MEDS: Omnipaque 350 MG/ML 100 ML BTL IJ (21:41)
--- NOTE | 2022-07-01 22:00 | DI.CT_ITS ---
Exam(s) CT CHEST PE CTA EXAM: CT CHEST PE CTA CLINICAL HISTORY: R/O D-dimer Covid Positive, elevated Dimer. TECHNIQUE: Imaging Protocol: CT angiography of the chest was performed using pulmonary embolus tari col. Multi planar reconstructions were performed. CONTRAST MATERIAL: Intravenous: Omnipaque 350 Contrast volume: 62 cc COMPARISON: CT CT ABDOMEN PELVIS W from 05/28/2022 FINDINGS: CHEST: PULMONARY ARTERIES: There are no intraluminal filling defects to suggest acute pulmonary emboli. LUNGS: No evidence of pulmonary infarction. However, there is an area of infiltrate in this sub apic al right upper lobe measuring 1.3 x 1.4 cm. Requires follow-up. No other confluent infiltrates nor pleural effusions.. MEDIASTINUM: There is no hilar nor mediastinal adenopathy. CARDIAC: Mild cardiomegaly. No pericardial effusion. Caliber thoracic aorta is upper normal. No di ssection. There is no significant shift of the interventricular septum. PARTIALLY VISUALIZED UPPERMOST ABDOMEN: Hepatic steatosis noted as well as hepatomegaly. There is al so some ascites in the abdomen. OSSEOUS: There are multiple bilateral healed rib fractures. No acute fractures evident. No signific ant osseous lesions seen.. IMPRESSION: 1. No evidence of acute pulmonary emboli. No evidence of pulmonary infarction.No pleural effusions. 2. However, there is an area of infiltrate in the right upper lobe measuring 1.3 x 1.4 cm. This will require appropriate follow-up imaging to rule out neoplasm. 3. Hepatic steatosis and ascites noted. Multiple healed bilateral rib fractures First read by [facility]. Final report called by myself to ER physician 07/02/22 a.m.. RADIATION DOSE DELIVERED: 297.29mGy.cm Total DLP DATA REPOSITORY: All CT scans at this facility are submitted to the National Radiology Data Registry (NRDR) Dose Index Registry (DIR) with the [employer] ([employer]). RADIATION OPTIMIZATION: All CT scans at this facility use at least one of these dose optimization te chniques: automated exposure control; mA and/or kV adjustment per patient size (includes targeted exa ms where dose is matched to clinical indication); or iterative reconstruction.
[2022-07-01 22:05] LABS: Troponin I < 50 ng/L (<or=60)
--- NOTE | 2022-07-01 22:23 | NUR.NOTE ---
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 Stools are formed. Pt expresses disinterestin calling prior to bowel movement. Skin barrier used, improvement noted.
--- NOTE | 2022-07-01 22:27 | DI.VRAD_ITS ---
PROCEDURE INFORMATION: Exam: CTA Chest With Contrast Exam date and time: 07/01/2022 9:55 PM Age: 77 years old Clinical indication: Pain; Other: Elevated d-dimer covid + TECHNIQUE: Imaging protocol: Computed tomographic angiography of the chest with contrast. 3D rendering (Not supervised by radiologist): MIP and/or 3D reconstructed images were created by the technologist. Radiation optimization: All CT scans at this facility use at least one of these dose optimization techniques: automated exposure control; mA and/or kV adjustment per patient size (includes targeted exams where dose is matched to clinical indication); or iterative reconstruction. Contrast material: OMNIPAQUE 350; Contrast volume: 62 ml; Contrast route: INTRAVENOUS (IV); COMPARISON: CT CHEST PE ABD PELVIS W 11/01/2021 9:25 AM FINDINGS: Pulmonary arteries: The pulmonary arteries enhance appropriately with no evidence of pulmonary embolism. Mild dilatation of the central pulmonary arteries suggesting mild pulmonary arterial hypertension. Aorta: Borderline aneurysmal dilatation of the ascending aortic segment at 4.0 cm diameter. No aortic dissection. Mild calcific atherosclerosis. No mediastinal hematoma. Lungs: Mild bilateral basilar bronchial wall thickening consistent with bronchitis or bronchial edema. No bronchiectasis. No bronchial occlusions. Patchy atelectasis in the lung bases likely representing subsegmental atelectasis from hypoventilatory changes or bronchiolitis. Small zone of alveolar density in the posterior right upper lobe could represent atelectasis or patchy mild pneumonia. No pulmonary mass lesions are identified. Pleural spaces: No pleural effusion. No pneumothorax. Heart: Moderate cardiomegaly. Mild coronary artery calcification in the RCA distribution. No pericardial effusion. Lymph nodes: 16 mm nodule at the posterior margin of the right thyroid lobe could represent a paratracheal node or enlarged parathyroid gland, or pedunculated thyroid nodule. Recommend nonemergent thyroid ultrasound assessment. No supraclavicular or axillary adenopathy. No mediastinal adenopathy. Borderline enlarged right hilar node adjacent to the azygous vein measuring about 9 mm short axis, and borderline enlarged subcarinal nodes measuring up to 9 mm short axis. These are nonspecific. Diaphragm: Small hiatal hernia. Small volume ascitic fluid tracks into the hiatal hernia. Distal esophagus is largely contracted without gross abnormality. Liver: Severe fatty infiltration of the liver with hepatomegaly partially visualized. Gallbladder and bile ducts: Prior cholecystectomy. Intraperitoneal space: Large volume simple ascites in the upper abdomen. Bones/joints: Osteopenia. Numerous chronic appearing right posterior and lateral mid to lower rib fractures. Chronic right humeral head articular fracture and suspected underlying chronic AVN without gross change from 11/01/2021, although only marginally visualized. Chronic left-sided rib fractures. Chronic appearing contour irregularity at the inferior most margin of each scapula involving the serratus anterior attachment zone, likely representing chronic changes of remote prior healed insufficiency fractures although this could represent anatomic variation given the symmetry. Soft tissues: The soft tissues of the chest wall demonstrate no acute abnormality. IMPRESSION: 1. No evidence of pulmonary embolism or aortic dissection. Mild changes of pulmonary arterial hypertension. 2. Borderline mild aneurysmal dilatation of the ascending aortic segment at 4.0 cm diameter. No rupture. 3. Mild bronchial wall thickening in the basilar distributions suggesting mild changes of bronchitis or bronchial edema. 4. Patchy alveolar opacities in the dependent lung gatica bilaterally. This is somewhat rounded in the posterior right upper lobe and might represent an element of pneumonia, versus rounded atelectasis. 5. Borderline enlarged subcarinal and right hilar nodes, nonspecific. 6. A 16 mm ovoid nodule at the posterior margin of the right thyroid lobe could represent a pedunculated thyroid nodule versus enlarged parathyroid gland or paratracheal node. Recommend nonemergent thyroid ultrasound assessment. 7. Moderate cardiomegaly and mild coronary artery calcification. 8. Severe fatty infiltration of the liver with suspected hepatomegaly, partially visualized. 9. Large volume simple ascites in the upper abdomen. 10. Chronic bilateral rib fractures and chronic right humeral head articular fracture with suspected underlying chronic AVN. 11. Additional nonemergent findings detailed above. Dictated and Authenticated by: Clarence Phipps MD. Ordering:CAMDEN Castro MD
[2022-07-02] VITALS (8 sets, daily range): BP systolic 113–179; BP diastolic 78–97; PULSE 84–105; RESP 16–18; TEMP 36.9–37.3; O2SAT 92–96
[2022-07-02] MEDS: Enoxaparin 40 MG/0.4 ML SYR SC ×2 (00:01→21:25)
[2022-07-02] MEDS: REMDESIVIR 200 MG in Normal Saline 250 ML 250 MG IVPB (00:03)
[2022-07-02] MEDS: methylPREDNISolone SUCC 125 MG VIAL IVP (00:05)
[2022-07-02] MEDS: Melatonin 3 MG TAB 6 MG PO (00:47)
[2022-07-02] MEDS: LORazepam 1 MG TAB PO ×2 (00:48→20:33)
[2022-07-02] MEDS: Mirtazapine 15 MG TAB 7.5 MG PO ×2 (00:48→20:39)
[2022-07-02 02:00] LABS: Source Nasal/Nares
[2022-07-02 02:38] LABS: COVID-19 PCR POSITIVE (Negative)
--- NOTE | 2022-07-02 05:24 | W.PM.HP.N ---
Date of service: 07/02/22 Time of Service: 05:24 Assessment and Plan Assessment and plan (1) Pneumonia due to COVID-19 virus: Status: Acute Assessment and plan: Initiated Remdesivir and dexamethasone. Initially did not require supplemental O2 in the ED, but then saturations dropped to mid-upper 80's. Now on RA with saturation of 96%. Prone. Acapella and IS. Covid precautions. (2) Cirrhosis of liver with ascites: Status: Acute Assessment and plan: She has been undergoing intermittent paracentesis with general surgery group; last performed on 06/18/22. Monitor for need of further paracentesis. Cont lasix and spironolactone. (3) Chronic alcoholism: Assessment and plan: No history of significant acute alcohol withdrawal. Initiate CIWA monitoring if she does show sighs/sxs of withdrawal. Thiamine, folate and MVI continued. (4) Chronic alcoholic gastritis: Assessment and plan: Cont pantoprazole and carafate. No acute flare of sxs. Qualifiers: Gastritis bleeding: without bleeding Qualified Code(s): K29.20 - Alcoholic gastritis without bleeding (5) Hypertension: Assessment and plan: Cont metoprolol and amlodipine. Also on lasix and spironolactone. Monitor. Qualifiers: Hypertension type: essential hypertension Qualified Code(s): I10 - Essential (primary) hypertension (6) Palliative care patient: Status: Acute Assessment and plan: DNR/DNI Seen by palliative on 06/01/22. History of Present Illness History of Present Illness Chief Complaint: Confusion, Covid-19 Narrative: This is a 77 yo female with a PMH of alcohol abuse disorder, cirrhosis with ascites, gastritis, anemia, depression and PTSD, HTN, HLD, acute cholecystitis with cholecystecomty in Apr of this year. She presented to the ED with concerns of feeling confused, generalized body aches and loose stools for 5 days. She was dxd with COVID-19 5 days ago. She endorses receiving a Covid booster from her PCP on 06/10/22. She was alert and oriented x2 on admission to the ED. W/U showed an initial RA O2 saturation of 92%; this later dropped into the high 80's and 2L of O2 per NC initiated. She was afebrile. WBC count 3.75. Hgb 12. D-dimer 4988. Procal neg. Na 143. K 4.2. Cr 1.0. TBili 1.6. AST 94. ALT 42. CT chest: No evidence of P.E. Borderline mild aneurysmal dilatation of ascending aortic sement at 4.0 cm diameter. Mild bronchial wall thickening. Patchy alveolar opacities in dependent lung gatica bilaterally; Pneumonia vs atelectasis. Sixteen mm nodule of right thyroid lobe; recommended nonemergent thryoid US. Admitted for further treatment and monitoring. Review of Systems All systems reviewed & are unremarkable except as noted in HPI and below PFSH All Active Problems (Updated 07/02/22 @ 05:39 by Aydin Joy MD) Pneumonia due to COVID-19 virus (Acute) COVID (Acute) Anxiety (Chronic) Adverse effect of metronidazole (Acute) Medication monitoring encounter (Acute) Ascites (Acute) Advance care planning (Acute) Cirrhosis of liver with ascites (Acute) Animal bite of right hand with infection (Acute) Umbilical hernia (Acute) 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 ascites (Acute) Hyperbilirubinemia (Acute) Shortness of breath (Acute) Elevated blood pressure reading without diagnosis of hypertension (Acute) Left arm pain (Acute) Ambulatory dysfunction (Acute) Incontinence (Acute) Urge incontinence (Acute) Anorexia (Acute) Headache (Acute) Onychomycosis (Acute) Depression (Chronic) Chest pain (Acute) Foot pain, right (Acute) Tendinitis of left rotator cuff (Acute) Macrocytosis (Acute 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 Leukopenia (Acute) Headache (Acute) Epigastric abdominal pain (Acute) Calcific tendinitis of left shoulder (Acute) Pulmonary mass (Acute) spiculated mass Pneumonia (Acute) Depression with suicidal ideation (Acute) Alcohol abuse (Chronic) Diarrhea (Acute) Epigastric pain (Acute) Dehydration (Acute) Hypokalemia (Acute) Discharge planning issues (Acute) Palliative care patient (Acute) Difficult intravenous access (Acute) Multiple IV attempts, usually requires ultrasound placement. PTSD (post-traumatic stress disorder) (Acute) Anemia (Chronic) Depression (Chronic) Foot pain, right (Acute) T12 compression fracture (Acute) Presacral mass (Chronic) Deviated nasal septum (Acute) Frequent falls (Chronic) Head injury (Acute) Ambulatory dysfunction (Chronic) Shoulder pain, right (Chronic) DVT prophylaxis (Acute) Suicidal ideation (Acute) Dry eye (Acute) Pruritus (Acute) Dystrophic nail (Acute) AMBER (acute kidney injury) (Acute) Iron deficiency anemia (Chronic) Alcohol abuse (Chronic) Hypomagnesemia (Chronic) Discharge planning issues (Acute) UTI (urinary tract infection) (Acute) Fall (Acute) Atelectasis of left lung (Chronic) Advance directive on file (Acute) Nodule of upper lobe of right lung (Acute ~09/13/18) 09/13/18 [facility]; 12mm SPICULATED -kb Cataract (Chronic 11/07/15) Hypertension (Chronic) high today; she will check readings at home Hyperlipidemia (Chronic) Back pain, chronic (Chronic) Depression (Chronic) Osteopenia (Chronic) Medical History Adjustment disorder with depressed mood Alcoholic ketosis Anemia Cervical radicular pain neck pain and DJD [facility] 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) pls refrain from alcohol Chronic alcoholism she will not stop drinking unless she checks with me, so that we can help her avert withdrawal I do not think she is capable on her own--she would need placement to achieve required goal of 3 months of sobriety Chronic diarrhea Closed right humeral fracture Corneal ulcer, right (~08/23/18) 08/23/18; [facility] Fracture of humerus, left, closed Genital herpes simplex recurrent gential; suppressive Valtrex GERD (gastroesophageal reflux disease) GI bleed (12/20/16) Hypertension Hypokalemia Hypomagnesemia Incidental lung nodule, greater than or equal to 8mm 1cm, spiculated, stable for many years, recommend f/u in 6 mo Multiple rib fractures 03/11/19 [facility] Non-cardiac chest pain (09/21/16) [facility] 09/21/16 NEGATIVE MP Osteoarthritis Palliative care patient (03/21/17) Pancreatitis, alcoholic, acute Peripheral edema Photophobia of right eye Pleural effusion on left 03/11/19 [facility] Presacral mass (~09/15/18) 09/15/18 [facility] Sciatica right, epidural injuections [facility] Tubular adenoma of colon (01/28/17) Urinary incontinence 01/24/13 urethral suspension and sling at [facility] (bladder suspension 1991) 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 Bladder repair. Repair bladder injury, simple Family History Mother No problems noted. Father , DROWNED at age 50. No problems noted. Sister Personal history of malignant neoplasm MELANOMA Sister No problems noted. Grandfather Personal history of malignant neoplasm STOMACH Grandfather Personal history of malignant neoplasm PROSTATE Grandmother Heart disease [place] Acute ill-defined cerebrovascular disease Grandmother Personal history of malignant neoplasm UTERINE Aunt , [place] Heart disease [place] Aunt , [place] Heart disease Brother No problems noted. Social History Smoking/Tobacco Use Status: Former Tobacco Use Quit Date: 08/05/20 Smoking risk assessment performed?: Yes Alcohol Intake: current Alcohol Intake frequency: 3 or more drinks per day Alcohol type: hard liquor Drug use: Never Substance use type: does not use Current gender identity: female Do you feel safe at home: Yes Do you feel safe in your relationship?: Yes Meds Allergies and Home Medications Allergies Allergy/AdvReac Type Severity Reaction Status Date / Time Penicillins Allergy Mild Rash Verified 07/01/22 19:26 ramipril Allergy Unknown ITCHING Verified 07/01/22 19:26 meperidine [From Demerol] AdvReac Severe Nausea Verified 07/01/22 19:26 bupropion AdvReac Mild GI upset Verified 07/01/22 19:26 AMBER Inhibitors AdvReac Unknown COUGH Verified 07/01/22 19:26 alendronate sodium AdvReac Unknown GI Distress Verified 07/01/22 19:26 clarithromycin AdvReac Unknown intolerant Verified 07/01/22 19:26 paroxetine AdvReac Unknown Diarrhea Verified 07/01/22 19:26 Home Medications Medication Instructions Recorded Confirmed Type carboxymethylcellulose sodium 0.5 1 drp OU Q4H WHILE AWAKE #30 ea 06/20/19 07/01/22 Rx % eye drops in a dropperette (Refresh Plus) lifitegrast 5 % eye drops in a 1 drp ophthalmic (eye) BID 08/05/20 07/01/22 History dropperette (Xiidra) multivitamin (Multiple Vitamins 1 tab PO DAILY #90 tabs 09/05/20 07/01/22 Rx tablet) venlafaxine 75 mg capsule,extended 75 mg PO DAILY #90 caps 08/05/21 07/01/22 Rx release 24 hr ipratropium 0.5 mg-albuterol 3 mg 3 ml inhalation Q6H PRN 12/25/21 07/01/22 History (2.5 mg base)/3 mL nebulization soln quetiapine 25 mg tablet See Rx Instructions PO BID #30 tabs 12/29/21 07/01/22 Rx albuterol sulfate 90 mcg/actuation 2 puff inhalation QID PRN 02/08/22 07/01/22 Rx aerosol inhaler (Ventolin HFA) shortness of breath or wheezing #8.5 grams amlodipine 10 mg tablet 10 mg PO DAILY #90 tabs 02/08/22 07/01/22 Rx buspirone 5 mg tablet 5 mg PO BID #60 tabs 02/08/22 07/01/22 Rx folic acid 1 mg tablet 1 mg PO DAILY #90 tabs 02/08/22 07/01/22 Rx melatonin 3 mg capsule 6 mg PO HS #180 caps 02/08/22 07/01/22 Rx metoprolol tartrate 50 mg tablet 50 mg PO DAILY #90 tabs 02/08/22 07/01/22 Rx mirtazapine 7.5 mg tablet 7.5 mg PO QHS #90 tabs 02/08/22 07/01/22 Rx ondansetron 4 mg disintegrating 4 mg PO Q8H PRN nausea and 02/08/22 07/01/22 Rx tablet vomiting #20 tabs pantoprazole 40 mg tablet,delayed 40 mg PO DAILY #90 tabs 02/08/22 07/01/22 Rx release sucralfate 1 gram tablet 1 g PO BID #60 tabs 02/08/22 07/01/22 Rx thiamine HCl (vitamin B1) 100 mg 100 mg PO DAILY #90 tabs 02/08/22 07/01/22 Rx tablet valacyclovir 500 mg tablet 500 mg PO DAILY #90 tabs 06/13/22 11/03/22 Rx (Valtrex) fluticasone propionate 50 2 spray NS daily prn #16 grams 03/06/22 07/01/22 Rx mcg/actuation nasal spray,suspension budesonide 0.5 mg/2 mL suspension 0.5 mg (2 mL) inhalation DAILY #60 05/06/22 07/01/22 Rx for nebulization (Pulmicort) mL melatonin 3 mg capsule 3 mg PO .pm PRN sleep #90 caps 05/12/22 07/01/22 Rx cyanocobalamin (vitamin B-12) 500 1,000 mcg PO DAILY #0 tabs 05/21/22 07/01/22 Rx mcg tablet (Vitamin B-12) pantoprazole 40 mg tablet,delayed 40 mg PO BID@0730,2000 #60 tabs 05/21/22 07/01/22 Rx release Lactobacillus rhamnosus GG 10 1 cap PO DAILY #30 caps 06/03/22 07/01/22 Rx billion cell capsule ferrous sulfate 325 mg (65 mg 325 mg PO BID #30 tabs 06/03/22 07/01/22 Rx iron) tablet furosemide 20 mg tablet 20 mg PO BID@0830,1600 #60 tabs 06/03/22 07/01/22 Rx spironolactone 25 mg tablet 50 mg PO BID #60 tabs 06/03/22 07/01/22 Rx lorazepam 1 mg tablet 1 mg PO QHS PRN sleep #20 tabs 06/10/22 07/01/22 Rx molnupiravir 200 mg capsule (EUA) 800 mg PO Q12H 5 days #40 caps 07/01/22 07/01/22 Rx Exam Narrative Exam Narrative: Constitutional: Alert and oriented x2. Appears stated age. Normal body habitus. Appears uncomfortable and tired. Head: Normocephalic, no trauma. Eyes: Sclera clear. EOMI Chest: RRR, Normal S1, S2 Resp: Lungs clear to auscultation bilaterally, no wheezes, rales, or rhonchi. Occasional dry cough. Abdomen: Soft, Diffuse tenderness. Distended (she last had a paracentesis on June 18. Skin: No suspicious rashes or lesions. Capillary refill less than 2 sec. Neurologic: Alert and oriented x 2. No motor deficits. Speech clear. . Psych: Affect blunted; appropriate for situation. Results Labs Result diagrams: 07/01/22 19:15 07/01/22 19:15 Labs: Laboratory Results - last 24 hr 07/01/22 07/01/22 07/01/22 17:55 17:55 19:15 WBC RBC Hgb Hct MCV MCH MCHC RDW Plt Count MPV Immature Gran % Neutrophils % Lymphocytes % Monocytes % Eosinophils % Basophils % Nucleated RBC % Absolute Neutrophils Absolute Lymphocytes Absolute Monocytes Absolute Eosinophils Absolute Basophils Anisocytosis PT INR APTT D-Dimer Sodium 143 Potassium 4.2 Chloride 106 Carbon Dioxide 25.0 Anion Gap 12.0 H BUN 16 Creatinine 1.0 Est GFR (CKD-EPI 2020) 58.39 Glucose 85 Calcium 9.3 Magnesium 1.8 Total Bilirubin 1.6 H AST 94 H ALT 42 Alkaline Phosphatase 136 H Troponin I < 50 Total Protein 6.6 Albumin 3.3 L Procalcitonin Urine Color Yellow Urine Clarity Clear Urine pH 6.5 Ur Specific [place] >= 1.030 H Urine Protein 30 H Urine Ketones 15 H Urine Blood Negative Urine Nitrite Negative Urine Bilirubin Small H Urine Urobilinogen 1.0 H Ur Leukocyte Esterase Negative Urine RBC Negative Urine WBC 10-20 H Ur Epithelial Cells Few Urine Crystals Negative Urine Bacteria Few Urine Casts Negative Urine Mucus Negative Ur Culture Indicated? Yes Urine Glucose Negative Urine Opiates Screen Negative Urine Methadone Screen Negative Ur Barbiturates Screen Negative Ur Tricyclics Screen Negative Ur Amphetamines Screen Negative U Benzodiazepines Scrn Negative Urine Cocaine Screen Negative Ur THC Screen Negative Ethyl Alcohol 153.0 H COVID-19 Source SARS-CoV-2 (PCR) 07/01/22 07/01/22 07/01/22 19:15 19:15 19:15 WBC 3.75 L RBC 4.07 Hgb 12.0 Hct 38.8 MCV 95 MCH 29.5 MCHC 30.9 L RDW 21.2 H Plt Count 109 L MPV 8.9 Immature Gran % 0.8 Neutrophils % 58.9 Lymphocytes % 32.0 Monocytes % 6.7 Eosinophils % 0.8 Basophils % 0.8 Nucleated RBC % 0.0 Absolute Neutrophils 2.21 Absolute Lymphocytes 1.20 Absolute Monocytes 0.25 Absolute Eosinophils 0.03 Absolute Basophils 0.03 Anisocytosis 1+ PT 10.4 INR 1.0 APTT 25.5 D-Dimer 4988 H Sodium Potassium Chloride Carbon Dioxide Anion Gap BUN Creatinine Est GFR (CKD-EPI 2020) Glucose Calcium Magnesium Total Bilirubin AST ALT Alkaline Phosphatase Troponin I Total Protein Albumin Procalcitonin < 0.1 Urine Color Urine Clarity Urine pH Ur Specific [place] Urine Protein Urine Ketones Urine Blood Urine Nitrite Urine Bilirubin Urine Urobilinogen Ur Leukocyte Esterase Urine RBC Urine WBC Ur Epithelial Cells Urine Crystals Urine Bacteria Urine Casts Urine Mucus Ur Culture Indicated? Urine Glucose Urine Opiates Screen Urine Methadone Screen Ur Barbiturates Screen Ur Tricyclics Screen Ur Amphetamines Screen U Benzodiazepines Scrn Urine Cocaine Screen Ur THC Screen Ethyl Alcohol COVID-19 Source SARS-CoV-2 (PCR) 07/01/22 07/02/22 21:40 01:48 WBC RBC Hgb Hct MCV MCH MCHC RDW Plt Count MPV Immature Gran % Neutrophils % Lymphocytes % Monocytes % Eosinophils % Basophils % Nucleated RBC % Absolute Neutrophils Absolute Lymphocytes Absolute Monocytes Absolute Eosinophils Absolute Basophils Anisocytosis PT INR APTT D-Dimer Sodium Potassium Chloride Carbon Dioxide Anion Gap BUN Creatinine Est GFR (CKD-EPI 2020) Glucose Calcium Magnesium Total Bilirubin AST ALT Alkaline Phosphatase Troponin I < 50 Total Protein Albumin Procalcitonin Urine Color Urine Clarity Urine pH Ur Specific [place] Urine Protein Urine Ketones Urine Blood Urine Nitrite Urine Bilirubin Urine Urobilinogen Ur Leukocyte Esterase Urine RBC Urine WBC Ur Epithelial Cells Urine Crystals Urine Bacteria Urine Casts Urine Mucus Ur Culture Indicated? Urine Glucose Urine Opiates Screen Urine Methadone Screen Ur Barbiturates Screen Ur Tricyclics Screen Ur Amphetamines Screen U Benzodiazepines Scrn Urine Cocaine Screen Ur THC Screen Ethyl Alcohol COVID-19 Source Nasal/Nares SARS-CoV-2 (PCR) POSITIVE A* Last Vital Signs Temp 37.1 C 07/02/22 00:41 Pulse 104 H 07/02/22 00:41 Resp 18 07/02/22 00:41 BP 179/97 H 07/02/22 00:41 Pulse Ox 96 07/02/22 00:41 PAWSS Have you Been Recently Intoxicated or Drunk Within the Last 30 days?: Yes Have you Ever Experienced Previous Episodes of Alcohol Withdrawal?: No Have you ever Experienced Withdrawal Seizures?: No Have you ever Experienced Delirium Tremens(DT)s?: No Have you ever undergone Alcohol Rehabilitation Treatment (i.e, inpt ot outpatient treatment programs)?: No Have you ever Experienced Blackouts?: No Have you ever Combined Alcohol with other Downers within the last 90 days?: No Have you ever Combined Alcohol with any other Substance of Abuse during the last 90 days?: No Positive Blood Alcohol level on Presentation? [PCS.BAL]: Yes Evidence of Increased Autonomic Activity (i.e. HR>120, tremor, sweating, agitation, nausea)?: No Result: 2
[2022-07-02 07:41] LABS: D-Dimer 4620 ng/mlFEU (<500)
[2022-07-02 08:20] LABS: Abs Immature Grans 0.02 10^3/uL (0.0-0.06); Absolute Basophil Count 0.01 10^3/uL (0.0-0.2); Absolute Lymphocyte Count 0.26 10^3/uL (1.2-3.4); Absolute Monocyte Count 0.03 10^3/uL (0.1-0.8); Absolute Neutrophil Count 2.01 10^3/uL (1.2-6.7); Basophils % 0.4; HCT 34.7 % (36.0-46.0); HGB 10.9 g/dL (11.2-15.7); Immature Grans % 0.9; Lymphocytes % 11.2; MCH 29.3 pg (27.0-33.0); MCHC 31.4 % (32.0-36.0); MCV 93 fL (80-95); Monocytes % 1.3; Neutrophils % 86.2; RBC 3.72 10^6/uL (3.93-5.22); RDW 20.7 % (11.7-14.6); RDW-SD 71.6 fL; WBC 2.33 10^3/uL (4.4-10.8)
[2022-07-02 08:40] LABS: ALT 36 U/L (14-59); AST 79 U/L (15-37); Albumin 3.1 g/dL (3.4-5.0); Alkaline Phosphatase 136 U/L (46-116); Anion Gap 13.3 mmol/L (3-11); BUN 16 mg/dL (7-18); Bilirubin, Total 1.5 mg/dL (0.2-1.0); C-Reactive Protein 1.21 mg/dL (0.0-0.3); CO2 20.7 mmol/L (21.0-32.0); Chloride 104 mmol/L (98-107); Estimated GFR 58.39 (mL/min/1.73m2); Glucose 165 mg/dL (74-106); Potassium 4.7 mmol/L (3.5-5.1); Sodium 138 mmol/L (136-145); Total Protein 6.2 g/dL (6.4-8.2)
[2022-07-02] MEDS: Budesonide 0.5 MG/2 ML UPD VIAL IH (08:44)
[2022-07-02] MEDS: Refresh PLUS Eye Drops 0.4ml OU ×4 (08:45→20:35)
[2022-07-02] MEDS: Normal Saline Flush 10 ML SYR IVP ×3 (08:45→21:28)
[2022-07-02] MEDS: QUEtiapine 25 MG TAB 12.5 MG PO ×2 (08:46→20:32)
[2022-07-02] MEDS: Metoprolol 50 MG TAB PO (08:46)
[2022-07-02] MEDS: Ferrous Sulfate 325 MG TAB PO ×2 (08:46→20:32)
[2022-07-02] MEDS: Cyanocobalamin 500 MCG TAB 1000 MCG PO (08:46)
[2022-07-02] MEDS: Spironolactone 25 MG TAB 50 MG PO ×2 (08:46→20:32)
[2022-07-02] MEDS: Thiamine 100 MG TAB PO (08:46)
[2022-07-02] MEDS: Multivitamin TAB 1 TAB PO (08:46)
[2022-07-02] MEDS: Folic Acid 1 MG TAB PO (08:47)
[2022-07-02] MEDS: Sucralfate 1 GM TAB PO ×2 (08:47→20:32)
[2022-07-02] MEDS: Venlafaxine 75 MG CAPCR PO (08:47)
[2022-07-02] MEDS: Pantoprazole 40 MG TABCR PO (08:47)
[2022-07-02] MEDS: busPIRone 5 MG TAB PO ×2 (08:47→20:32)
[2022-07-02] MEDS: amLODIPine 10 MG TAB PO (08:48)
[2022-07-02] MEDS: Furosemide 20 MG TAB PO ×2 (08:48→15:56)
[2022-07-02] MEDS: Dexamethasone 4 MG/ML VIAL 6 MG IVP (08:50)
[2022-07-02 08:57] LABS: Anisocytosis 2+; Diff Comment Agrees w/ Instrument; Hypochromasia 2+; Platelet Count 108 10^3/uL (130-400)
[2022-07-02] MEDS: valACYclovir 500 MG TAB PO (08:57)
[2022-07-02] MEDS: Doxycycline Hyclate 100 MG CAP PO ×2 (11:09→20:40)
[2022-07-02] MEDS: Ondansetron O.D.T. 4 MG TABEF PO (11:10)
--- NOTE | 2022-07-02 12:29 | INITIAL_ITS ---
- If Service Date Differs Date of service: 07/02/22 Time of Service: 12:29 Care Management Initial Assess REASON FOR HOSPITALIZATION:: hypoxia, covid positive PAST MEDICAL HISTORY/PAST SURGICAL HISTORY:: All Active Problems. Pneumonia due to COVID-19 virus (Acute). COVID (Acute). Anxiety (Chronic). Adverse effect of metronidazole (Acute). Medication monitoring encounter (Acute). Ascites (Acute). Advance care planning (Acute). Cirrhosis of liver with ascites (Acute). Animal bite of right hand with infection (Acute). Umbilical hernia (Acute). 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 ascites (Acute). Hyperbilirubinemia (Acute). Shortness of breath (Acute). Elevated blood pressure reading without diagnosis of hypertension (Acute). Left arm pain (Acute). Ambulatory dysfunction (Acute). Incontinence (Acute). Urge incontinence (Acute). Anorexia (Acute). Headache (Acute). Onychomycosis (Acute). Depression (Chronic). Chest pain (Acute). Foot pain, right (Acute). Tendinitis of left rotator cuff (Acute). Macrocytosis (Acute 09/26/14). due to alcohol. Leukopenia (Acute). Headache (Acute). Epigastric abdominal pain (Acute). Calcific tendinitis of left shoulder (Acute). Pulmonary mass (Acute). spiculated mass. Pneumonia (Acute). Depression with suicidal ideation (Acute). Alcohol abuse (Chronic). Diarrhea (Acute). Epigastric pain (Acute). Dehydration (Acute). Hypokalemia (Acute). Discharge planning issues (Acute). Palliative care patient (Acute). Difficult intravenous access (Acute). Multiple IV attempts, usually requires ultrasound placement. PTSD (post- traumatic stress disorder) (Acute). Anemia (Chronic). Depression (Chronic). Foot pain, right (Acute). T12 compression fracture (Acute). Presacral mass (Chronic). Deviated nasal septum (Acute). Frequent falls (Chronic). Head injury (Acute). Ambulatory dysfunction (Chronic). Shoulder pain, right (Chronic). DVT prophylaxis (Acute). Suicidal ideation (Acute). Dry eye (Acute). Pruritus (Acute). Dystrophic nail (Acute). AMBER (acute kidney injury) (Acute). Iron deficiency anemia (Chronic). Alcohol abuse (Chronic). Hypomagnesemia (Chronic). Discharge planning issues (Acute). UTI (urinary tract infection) (Acute). Fall (Acute). Atelectasis of left lung (Chronic). Advance directive on file (Acute). Nodule of upper lobe of right lung (Acute ~09/13/18). 09/13/18 [facility]; 12mm SPICULATED -kb. Cataract (Chronic 11/07/15). Hypertension (Chronic). high today; she will check readings at home. Hyperlipidemia (Chronic). Back pain, chronic (Chronic). Depression (Chronic). Osteopenia (Chronic). Medical History. Adjustment disorder with depressed mood. Alcoholic ketosis. Anemia. Cervical radicular pain. neck pain and DJD. [facility]. 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). pls refrain from alcohol. Chronic alcoholism. she will not stop drinking unless she checks with me, so that we can help her avert withdrawal. I do not think she is capable on her own--she would need placement to achieve required goal of 3 months of sobriety. Chronic diarrhea. Closed right humeral fracture. Corneal ulcer, right (~08/23/18). 08/23/18; [facility]. Fracture of humerus, left, closed. Genital herpes simplex. recurrent gential; suppressive Valtrex. GERD (gastroesophageal reflux disease). GI bleed (12/20/16). Hypertension. Hypokalemia. Hypomagnesemia. Incidental lung nodule, greater than or equal to 8mm. 1cm, spiculated, stable for many years, recommend f/u in 6 mo. Multiple rib fractures. 03/11/19 [facility]. Non-cardiac chest pain (09/21/16). [facility] 09/21/16 NEGATIVE MP. Osteoarthritis. Palliative care patient (03/21/17). Pancreatitis, alcoholic, acute. Peripheral edema. Photophobia of right eye. Pleural effusion on left. 03/11/19 [facility]. 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 09/15/18 [facility]. Sciatica. right, epidural injuections. [facility]. Tubular adenoma of colon (01/28/17). Urinary incontinence. 01/24/13 urethral suspension and sling at [facility]. (bladder suspension 1991). Vision loss of right eye. 08/17/18;[facility]. Wernicke encephalopathy. Surgical History. Colonoscopy - MAC (01/28/17). EGD - MAC (12/20/16). History of bilateral ligation of fallopian tubes. History of Surgical Procedure. a. Bladder repair. Repair bladder injury, simple PREVIOUS FUNCTIONAL STATUS/SOCIAL/FAMILY SUPPORTS:: Leticia lives alone in her home in [place] with her dog and cats. She has a sister who takes care of her animals when she is hospitalized, and a homemaker, Marry, who visits her 3x/week for 2 hrs at a time. Her son Seth is her DPOA, although he lives in [place]. CURRENT FUNCTIONAL STATUS:: Leticia is being closely monitored on covid precautions. Per report, she is on room air, and she has refused her lunch today. She is requiring minimum assistance with one person at this time for repositioning. CM will continue to follow. ADVANCE DIRECTIVES:: [employer] on file. Son, Seth, listed as agent and DPOA. Has patient been provided with info about the portal/API?: Yes Did the patient sign up for the portal?: Yes (active) CODE STATUS:: DNR/DNI INSURANCE COVERAGE / FINANCIAL ISSUES:: [facility] MCR replacement CURRENT HOME/COMMUNITY SERVICES/EQUIPMENT:: Leticia owns a walker, a cane, and a toilet seat riser. She has a caregiver three days a week for two hours per day, in addition to MOW. PRIMARY CARE PHYSICIAN:: Lavelle Galindo POTENTIAL DISCHARGE NEEDS:: Evaluations for further needs, follow up appointments. PATIENT/FAMILY EDUCATION NEEDS:: Review of discharge instructions regarding medications, activity level, and follow up plan of care, and discussion of Ask Me Three. ANTICIPATED BARRIERS TO DISCHARGE:: None identified. TRANSPORTATION:: Via EMS due to Covid positive status PLAN:: Anticipate Leticia will be discharged home when medically cleared by provider. She will follow up with her community providers and plan of care as directed. Leticia will transport home via [facility] private vehicle coordinated by CM. CM will continue to support Leticia and any discharge planning needs.
--- NOTE | 2022-07-02 16:43 | PGE_ITS ---
Date of Service Date of service: 07/02/22 Time of Service: 16:43 Assessment and Plan Assessment and plan (1) Pneumonia due to COVID-19 virus: Status: Acute Assessment and plan: Continue Remdesivir currently on day #2 of 5, can continue Decadron, encourage patient to prone and to use her acapella and I-S. Covid precautions. Will continue hospitalization until completion of her Remdesivir. (2) Cirrhosis of liver with ascites: Status: Acute Assessment and plan: She has been undergoing intermittent paracentesis with general surgery group; last performed on 06/18/22. Monitor for need of further paracentesis. Cont lasix and spironolactone. Monitor labs (3) Chronic alcoholism: Assessment and plan: No history of significant acute alcohol withdrawal. Initiate CIWA monitoring if she does show sighs/sxs of withdrawal. Thiamine, folate and MVI continued. (4) Chronic alcoholic gastritis: Assessment and plan: Cont pantoprazole and carafate. No acute flare of sxs. Qualifiers: Gastritis bleeding: without bleeding Qualified Code(s): K29.20 - Alcoholic gastritis without bleeding (5) Hypertension: Assessment and plan: Cont metoprolol and amlodipine. Also on lasix and spironolactone. Monitor. Qualifiers: Hypertension type: essential hypertension Qualified Code(s): I10 - Essential (primary) hypertension (6) Palliative care patient: Status: Acute Assessment and plan: DNR/DNI Seen by palliative on 06/01/22. Subjective Subjective Interval history since last seen: patient presented w/ sx of nausea, vomiting, diarrhea and dyspnea. She had her COVID-19 booster vaccination on 06/10 but was exposed to COVID by her home health caregiver and was notified on Tuesday by her home health aid. Patient was admitted last night due to her generalized weakness along w/ transient hypoxemia in which her SPO2 dropped into the high 80'%. She is now on room air but still having symptoms of diarrhea, nausea and had an episode of emesis. She was started on Remdesivir last night along w/ decadron. She is tolerating some clear liquids but otherwise is not eating. She also complains fo not sleeping. Exam Narrative Exam Narrative: Leticia is alert and oriented to person/place/date and circumstances HEENT: moist mucous membranes; no exudate Neck: no overt JVD Lungs: scattered bilateral fine rales; no wheezes or rhonchi Heart: RRR Abdomen: soft, nontender Extremities: no cyanosis or edema Objective Last Vital Signs Temp 36.9 C 07/02/22 15:54 Pulse 95 H 07/02/22 15:54 Resp 18 07/02/22 15:54 BP 132/78 07/02/22 15:54 Pulse Ox 94 07/02/22 15:54 Laboratory Results - last 24 hr 07/01/22 07/01/22 07/01/22 17:55 17:55 19:15 WBC RBC Hgb Hct MCV MCH MCHC RDW Plt Count MPV Immature Gran % Neutrophils % Band Neutrophils % Lymphocytes % Atypical Lymphs % Monocytes % Eosinophils % Basophils % Metamyelocytes % Myelocytes % Promyelocytes % Other Cells % Nucleated RBC % Absolute Neutrophils Absolute Lymphocytes Absolute Monocytes Absolute Eosinophils Absolute Basophils RBC Morphology Polychromasia Hypochromasia Poikilocytosis Basophilic Stippling Anisocytosis Microcytosis Macrocytosis Spherocytes Tear Drop Cells Ovalocytes Stomatocytes [place] Bodies [place] Cells/Echinocytes Acanthocytes (Spur) Schistocytes PT INR APTT D-Dimer Sodium 143 Potassium 4.2 Chloride 106 Carbon Dioxide 25.0 Anion Gap 12.0 H BUN 16 Creatinine 1.0 Est GFR (CKD-EPI 2020) 58.39 Glucose 85 Calcium 9.3 Magnesium 1.8 Total Bilirubin 1.6 H AST 94 H ALT 42 Alkaline Phosphatase 136 H Troponin I < 50 C-Reactive Protein Total Protein 6.6 Albumin 3.3 L Procalcitonin Urine Color Yellow Urine Clarity Clear Urine pH 6.5 Ur Specific [place] >= 1.030 H Urine Protein 30 H Urine Ketones 15 H Urine Blood Negative Urine Nitrite Negative Urine Bilirubin Small H Urine Urobilinogen 1.0 H Ur Leukocyte Esterase Negative Urine RBC Negative Urine WBC 10-20 H Ur Epithelial Cells Few Urine Crystals Negative Urine Bacteria Few Urine Casts Negative Urine Mucus Negative Ur Culture Indicated? Yes Urine Glucose Negative Urine Opiates Screen Negative Urine Methadone Screen Negative Ur Barbiturates Screen Negative Ur Tricyclics Screen Negative Ur Amphetamines Screen Negative U Benzodiazepines Scrn Negative Urine Cocaine Screen Negative Ur THC Screen Negative Ethyl Alcohol 153.0 H COVID-19 Source SARS-CoV-2 (PCR) 11/03/22 11/03/22 11/03/22 19:15 19:15 19:15 WBC 3.75 L RBC 4.07 Hgb 12.0 Hct 38.8 MCV 95 MCH 29.5 MCHC 30.9 L RDW 21.2 H Plt Count 109 L MPV 8.9 Immature Gran % 0.8 Neutrophils % 58.9 Band Neutrophils % Lymphocytes % 32.0 Atypical Lymphs % Monocytes % 6.7 Eosinophils % 0.8 Basophils % 0.8 Metamyelocytes % Myelocytes % Promyelocytes % Other Cells % Nucleated RBC % 0.0 Absolute Neutrophils 2.21 Absolute Lymphocytes 1.20 Absolute Monocytes 0.25 Absolute Eosinophils 0.03 Absolute Basophils 0.03 RBC Morphology Polychromasia Hypochromasia Poikilocytosis Basophilic Stippling Anisocytosis 1+ Microcytosis Macrocytosis Spherocytes Tear Drop Cells Ovalocytes Stomatocytes [place] Bodies [place] Cells/Echinocytes Acanthocytes (Spur) Schistocytes PT 10.4 INR 1.0 APTT 25.5 D-Dimer 4988 H Sodium Potassium Chloride Carbon Dioxide Anion Gap BUN Creatinine Est GFR (CKD-EPI 2020) Glucose Calcium Magnesium Total Bilirubin AST ALT Alkaline Phosphatase Troponin I C-Reactive Protein Total Protein Albumin Procalcitonin < 0.1 Urine Color Urine Clarity Urine pH Ur Specific [place] Urine Protein Urine Ketones Urine Blood Urine Nitrite Urine Bilirubin Urine Urobilinogen Ur Leukocyte Esterase Urine RBC Urine WBC Ur Epithelial Cells Urine Crystals Urine Bacteria Urine Casts Urine Mucus Ur Culture Indicated? Urine Glucose Urine Opiates Screen Urine Methadone Screen Ur Barbiturates Screen Ur Tricyclics Screen Ur Amphetamines Screen U Benzodiazepines Scrn Urine Cocaine Screen Ur THC Screen Ethyl Alcohol COVID-19 Source SARS-CoV-2 (PCR) 07/01/22 07/02/22 07/02/22 21:40 01:48 06:27 WBC RBC Hgb Hct MCV MCH MCHC RDW Plt Count MPV Immature Gran % Neutrophils % Band Neutrophils % Lymphocytes % Atypical Lymphs % Monocytes % Eosinophils % Basophils % Metamyelocytes % Myelocytes % Promyelocytes % Other Cells % Nucleated RBC % Absolute Neutrophils Absolute Lymphocytes Absolute Monocytes Absolute Eosinophils Absolute Basophils RBC Morphology Polychromasia Hypochromasia Poikilocytosis Basophilic Stippling Anisocytosis Microcytosis Macrocytosis Spherocytes Tear Drop Cells Ovalocytes Stomatocytes [place] Bodies [place] Cells/Echinocytes Acanthocytes (Spur) Schistocytes PT INR APTT D-Dimer Sodium Cancelled Potassium Cancelled Chloride Cancelled Carbon Dioxide Cancelled Anion Gap Cancelled BUN Cancelled Creatinine Cancelled Est GFR (CKD-EPI 2020) Cancelled Glucose Cancelled Calcium Cancelled Magnesium Total Bilirubin Cancelled AST Cancelled ALT Cancelled Alkaline Phosphatase Cancelled Troponin I < 50 C-Reactive Protein Cancelled Total Protein Cancelled Albumin Cancelled Procalcitonin Urine Color Urine Clarity Urine pH Ur Specific [place] Urine Protein Urine Ketones Urine Blood Urine Nitrite Urine Bilirubin Urine Urobilinogen Ur Leukocyte Esterase Urine RBC Urine WBC Ur Epithelial Cells Urine Crystals Urine Bacteria Urine Casts Urine Mucus Ur Culture Indicated? Urine Glucose Urine Opiates Screen Urine Methadone Screen Ur Barbiturates Screen Ur Tricyclics Screen Ur Amphetamines Screen U Benzodiazepines Scrn Urine Cocaine Screen Ur THC Screen Ethyl Alcohol COVID-19 Source Nasal/Nares SARS-CoV-2 (PCR) POSITIVE A* 07/02/22 07/02/22 07/02/22 06:27 06:27 07:50 WBC Cancelled 2.33 L RBC Cancelled 3.72 L Hgb Cancelled 10.9 L Hct Cancelled 34.7 L MCV Cancelled 93 MCH Cancelled 29.3 MCHC Cancelled 31.4 L RDW Cancelled 20.7 H Plt Count Cancelled 108 L MPV Cancelled 9.0 Immature Gran % Cancelled 0.9 Neutrophils % Cancelled 86.2 Band Neutrophils % Cancelled Lymphocytes % Cancelled 11.2 Atypical Lymphs % Cancelled Monocytes % Cancelled 1.3 Eosinophils % Cancelled 0.0 Basophils % Cancelled 0.4 Metamyelocytes % Cancelled Myelocytes % Cancelled Promyelocytes % Cancelled Other Cells % Cancelled Nucleated RBC % Cancelled 0.0 Absolute Neutrophils Cancelled 2.01 Absolute Lymphocytes Cancelled 0.26 L Absolute Monocytes Cancelled 0.03 L Absolute Eosinophils Cancelled 0.00 Absolute Basophils Cancelled 0.01 RBC Morphology Cancelled See Below Polychromasia Cancelled Hypochromasia Cancelled 2+ Poikilocytosis Cancelled Basophilic Stippling Cancelled Anisocytosis Cancelled 2+ Microcytosis Cancelled Macrocytosis Cancelled Spherocytes Cancelled Tear Drop Cells Cancelled Ovalocytes Cancelled Stomatocytes Cancelled [place] Bodies Cancelled [place] Cells/Echinocytes Cancelled Acanthocytes (Spur) Cancelled Schistocytes Cancelled PT INR APTT D-Dimer 4620 H Sodium Potassium Chloride Carbon Dioxide Anion Gap BUN Creatinine Est GFR (CKD-EPI 2020) Glucose Calcium Magnesium Total Bilirubin AST ALT Alkaline Phosphatase Troponin I C-Reactive Protein Total Protein Albumin Procalcitonin Urine Color Urine Clarity Urine pH Ur Specific [place] Urine Protein Urine Ketones Urine Blood Urine Nitrite Urine Bilirubin Urine Urobilinogen Ur Leukocyte Esterase Urine RBC Urine WBC Ur Epithelial Cells Urine Crystals Urine Bacteria Urine Casts Urine Mucus Ur Culture Indicated? Urine Glucose Urine Opiates Screen Urine Methadone Screen Ur Barbiturates Screen Ur Tricyclics Screen Ur Amphetamines Screen U Benzodiazepines Scrn Urine Cocaine Screen Ur THC Screen Ethyl Alcohol COVID-19 Source SARS-CoV-2 (PCR) 07/02/22 07:50 WBC RBC Hgb Hct MCV MCH MCHC RDW Plt Count MPV Immature Gran % Neutrophils % Band Neutrophils % Lymphocytes % Atypical Lymphs % Monocytes % Eosinophils % Basophils % Metamyelocytes % Myelocytes % Promyelocytes % Other Cells % Nucleated RBC % Absolute Neutrophils Absolute Lymphocytes Absolute Monocytes Absolute Eosinophils Absolute Basophils RBC Morphology Polychromasia Hypochromasia Poikilocytosis Basophilic Stippling Anisocytosis Microcytosis Macrocytosis Spherocytes Tear Drop Cells Ovalocytes Stomatocytes [place] Bodies [place] Cells/Echinocytes Acanthocytes (Spur) Schistocytes PT INR APTT D-Dimer Sodium 138 Potassium 4.7 Chloride 104 Carbon Dioxide 20.7 L Anion Gap 13.3 H BUN 16 Creatinine 1.0 Est GFR (CKD-EPI 2020) 58.39 Glucose 165 H Calcium 9.0 Magnesium Total Bilirubin 1.5 H AST 79 H ALT 36 Alkaline Phosphatase 136 H Troponin I C-Reactive Protein 1.21 H Total Protein 6.2 L Albumin 3.1 L Procalcitonin Urine Color Urine Clarity Urine pH Ur Specific [place] Urine Protein Urine Ketones Urine Blood Urine Nitrite Urine Bilirubin Urine Urobilinogen Ur Leukocyte Esterase Urine RBC Urine WBC Ur Epithelial Cells Urine Crystals Urine Bacteria Urine Casts Urine Mucus Ur Culture Indicated? Urine Glucose Urine Opiates Screen Urine Methadone Screen Ur Barbiturates Screen Ur Tricyclics Screen Ur Amphetamines Screen U Benzodiazepines Scrn Urine Cocaine Screen Ur THC Screen Ethyl Alcohol COVID-19 Source SARS-CoV-2 (PCR) PAWSS Have you Been Recently Intoxicated or Drunk Within the Last 30 days?: Yes Have you Ever Experienced Previous Episodes of Alcohol Withdrawal?: No Have you ever Experienced Withdrawal Seizures?: No Have you ever Experienced Delirium Tremens(DT)s?: No Have you ever undergone Alcohol Rehabilitation Treatment (i.e, inpt ot outpatient treatment programs)?: No Have you ever Experienced Blackouts?: No Have you ever Combined Alcohol with other Downers within the last 90 days?: No Have you ever Combined Alcohol with any other Substance of Abuse during the last 90 days?: No Positive Blood Alcohol level on Presentation? [PCS.BAL]: Yes Evidence of Increased Autonomic Activity (i.e. HR>120, tremor, sweating, agitation, nausea)?: No Result: 2
[2022-07-02] MEDS: Melatonin 3 MG TAB 9 MG PO (21:25)
[2022-07-02] MEDS: REMDESIVIR 100 MG in Normal Saline 250 ML 250 MG IVPB (21:29)
[2022-07-03] VITALS (7 sets, daily range): BP systolic 122–147; BP diastolic 67–82; PULSE 88–107; RESP 17–18; TEMP 36.8–37.1; O2SAT 91–95
[2022-07-03] MEDS: Refresh PLUS Eye Drops 0.4ml OU ×4 (00:23→19:24)
[2022-07-03] MEDS: Acetaminophen 325 MG TAB PO (06:44)
[2022-07-03 07:47] LABS: C-Reactive Protein 0.79 mg/dL (0.0-0.3)
[2022-07-03 08:09] LABS: D-Dimer 4549 ng/mlFEU (<500)
[2022-07-03] MEDS: busPIRone 5 MG TAB PO ×2 (08:48→19:24)
[2022-07-03] MEDS: Cholecalciferol (Vitamin D3) 1,000 UNIT TAB 2000 UNITS PO (08:48)
[2022-07-03] MEDS: Sucralfate 1 GM TAB PO ×2 (08:48→19:23)
[2022-07-03] MEDS: QUEtiapine 25 MG TAB 12.5 MG PO ×2 (08:48→19:23)
[2022-07-03] MEDS: Cyanocobalamin 500 MCG TAB 1000 MCG PO (08:48)
[2022-07-03] MEDS: Venlafaxine 75 MG CAPCR PO (08:48)
[2022-07-03] MEDS: Zinc Sulfate 220 MG TAB PO (08:48)
[2022-07-03] MEDS: Multivitamin TAB 1 TAB PO (08:48)
[2022-07-03] MEDS: Furosemide 20 MG TAB PO ×2 (08:49→15:04)
[2022-07-03] MEDS: Pantoprazole 40 MG TABCR PO (08:49)
[2022-07-03] MEDS: Metoprolol 50 MG TAB PO (08:49)
[2022-07-03] MEDS: valACYclovir 500 MG TAB PO (08:49)
[2022-07-03] MEDS: Spironolactone 25 MG TAB 50 MG PO ×2 (08:49→19:23)
[2022-07-03] MEDS: Thiamine 100 MG TAB PO (08:49)
[2022-07-03] MEDS: Ferrous Sulfate 325 MG TAB PO ×2 (08:49→19:23)
[2022-07-03] MEDS: Folic Acid 1 MG TAB PO (08:49)
[2022-07-03] MEDS: amLODIPine 10 MG TAB PO (08:49)
[2022-07-03] MEDS: Dexamethasone 4 MG/ML VIAL 6 MG IVP (09:27)
[2022-07-03] MEDS: Doxycycline Hyclate 100 MG CAP PO ×2 (09:28→22:28)
[2022-07-03] MEDS: Normal Saline Flush 10 ML SYR IVP (09:28)
[2022-07-03] MEDS: Budesonide/Formoterol 160/4.5 6 GM 60 PUFF INH IH ×2 (10:43→19:29)
[2022-07-03] MEDS: Ondansetron O.D.T. 4 MG TABEF PO (15:04)
--- NOTE | 2022-07-03 18:04 | W.PM.PROGNOT ---
Date of Service Date of service: 07/03/22 Time of Service: 18:04 Assessment and Plan Assessment and plan (1) Pneumonia due to COVID-19 virus: Status: Acute Assessment and plan: Continue Remdesivir currently on day #3 of 5, can continue Decadron, encourage patient to prone and to use her acapella and I-S. Covid precautions. Will continue hospitalization until completion of her Remdesivir. Professional time spent interviewing and examining patient, discussion of goals of care with hospital team (care management, nursing and consulting professionals) was 20 minutes. (2) Cirrhosis of liver with ascites: Status: Acute Assessment and plan: She has been undergoing intermittent paracentesis with general surgery group; last performed on 06/18/22. I think that she needs paracentesis again. I will consult w/ Dr. Wells to see in a.m. Cont lasix and spironolactone. Monitor labs (3) Ascites: Status: Acute Assessment and plan: Surgical consult for paracentesis (4) Chronic alcoholism: Assessment and plan: No history of significant acute alcohol withdrawal. Initiate CIWA monitoring if she does show sighs/sxs of withdrawal. Thiamine, folate and MVI continued. (5) Chronic alcoholic gastritis: Assessment and plan: Cont pantoprazole and carafate. No acute flare of sxs. Qualifiers: Gastritis bleeding: without bleeding Qualified Code(s): K29.20 - Alcoholic gastritis without bleeding (6) Hypertension: Assessment and plan: Cont metoprolol and amlodipine. Also on lasix and spironolactone. Monitor. Qualifiers: Hypertension type: essential hypertension Qualified Code(s): I10 - Essential (primary) hypertension (7) Palliative care patient: Status: Acute Assessment and plan: DNR/DNI Seen by palliative on 06/01/22. Subjective Subjective Interval history since last seen: Patient's had poor appetite with nausea and increased abdominal distention. She reports she is having good bowel movements. No emesis. Exam Narrative Exam Narrative: Patient does not appear to be in any acute distress. She is not tachypneic or dyspneic. She is alert and oriented x3. Lungs are clear anteriorly posteriorly she has some fine bibasilar rales no rhonchi or wheezing Heart regular rate and rhythm Abdomen is distended with normal bowel sounds she has a positive fluid wave consistent with ascites in the abdominal wall is starting to look tense Lower extremity she has trace of pedal edema no peripheral cyanosis she has normal range of motion and strength Objective Last Vital Signs Temp 37.1 C 07/03/22 14:40 Pulse 88 07/03/22 14:40 Resp 18 07/03/22 14:40 BP 123/74 07/03/22 14:40 Pulse Ox 93 07/03/22 14:40 Laboratory Results - last 24 hr 07/03/22 07/03/22 06:35 06:35 D-Dimer 4549 H C-Reactive Protein 0.79 H PAWSS Have you Been Recently Intoxicated or Drunk Within the Last 30 days?: Yes Have you Ever Experienced Previous Episodes of Alcohol Withdrawal?: No Have you ever Experienced Withdrawal Seizures?: No Have you ever Experienced Delirium Tremens(DT)s?: No Have you ever undergone Alcohol Rehabilitation Treatment (i.e, inpt ot outpatient treatment programs)?: No Have you ever Experienced Blackouts?: No Have you ever Combined Alcohol with other Downers within the last 90 days?: No Have you ever Combined Alcohol with any other Substance of Abuse during the last 90 days?: No Positive Blood Alcohol level on Presentation? [PCS.BAL]: Yes Evidence of Increased Autonomic Activity (i.e. HR>120, tremor, sweating, agitation, nausea)?: No Result: 2
[2022-07-03] MEDS: LORazepam 1 MG TAB PO (19:46)
[2022-07-03] MEDS: Enoxaparin 40 MG/0.4 ML SYR SC (22:27)
[2022-07-03] MEDS: Melatonin 3 MG TAB 9 MG PO (22:27)
[2022-07-03] MEDS: Mirtazapine 15 MG TAB 7.5 MG PO (22:28)
[2022-07-04] MEDS: REMDESIVIR 100 MG in Normal Saline 250 ML 250 MG IVPB ×2 (01:06→21:59)
[2022-07-04 05:36] VITALS: BP 126/81; PULSE 101; RESP 20; TEMP 36; O2SAT 98
[2022-07-04 07:03] LABS: Abs Immature Grans 0.04 10^3/uL (0.0-0.06); Absolute Basophil Count 0.01 10^3/uL (0.0-0.2); Absolute Lymphocyte Count 0.78 10^3/uL (1.2-3.4); Absolute Monocyte Count 0.31 10^3/uL (0.1-0.8); Absolute Neutrophil Count 3.81 10^3/uL (1.2-6.7); Basophils % 0.2; HCT 33.6 % (36.0-46.0); HGB 11.3 g/dL (11.2-15.7); Immature Grans % 0.8; Lymphocytes % 15.8; MCH 30.4 pg (27.0-33.0); MCHC 33.6 % (32.0-36.0); MCV 90 fL (80-95); MPV 9.2 fL (8.0-11.0); Monocytes % 6.3; Neutrophils % 76.9; RBC 3.72 10^6/uL (3.93-5.22); RDW 20.7 % (11.7-14.6); RDW-SD 69.1 fL; WBC 4.95 10^3/uL (4.4-10.8)
[2022-07-04 07:11] LABS: INR 1.3 (0.9-1.1); PTT Activated 29.4 sec (21.0-27.5); Prothrombin Time 12.7 sec (9.3-11.0)
[2022-07-04 07:17] LABS: C-Reactive Protein 0.42 mg/dL (0.0-0.3); LDH 121 U/L (81-234)
[2022-07-04 07:19] LABS: ALT 32 U/L (14-59); AST 55 U/L (15-37); Alkaline Phosphatase 111 U/L (46-116); Anion Gap 9.8 mmol/L (3-11); BUN 25 mg/dL (7-18); Bilirubin, Total 0.7 mg/dL (0.2-1.0); CO2 25.2 mmol/L (21.0-32.0); CREATININE 1.3 mg/dL (0.55-1.02); Calcium 9.1 mg/dL (8.5-10.1); Chloride 103 mmol/L (98-107); Estimated GFR 42.62 (mL/min/1.73m2); Glucose 148 mg/dL (74-106); Potassium 3.6 mmol/L (3.5-5.1); Sodium 138 mmol/L (136-145); Total Protein 5.8 g/dL (6.4-8.2)
[2022-07-04 07:27] LABS: D-Dimer 3103 ng/mlFEU (<500)
[2022-07-04 07:46] LABS: Anisocytosis 3+; Diff Comment RBC Morph Reviewed; Platelet Count 103 10^3/uL (130-400); Polychromasia Present
[2022-07-04 08:13] VITALS: BP 147/79; PULSE 90; RESP 18; TEMP 36.8; O2SAT 95
[2022-07-04] MEDS: Refresh PLUS Eye Drops 0.4ml OU ×4 (08:35→21:56)
[2022-07-04] MEDS: Dexamethasone 4 MG/ML VIAL 6 MG IVP (08:35)
[2022-07-04] MEDS: Normal Saline Flush 10 ML SYR IVP (08:36)
[2022-07-04] MEDS: busPIRone 5 MG TAB PO ×2 (08:37→21:57)
[2022-07-04] MEDS: Spironolactone 25 MG TAB 50 MG PO ×2 (08:37→21:57)
[2022-07-04] MEDS: Zinc Sulfate 220 MG TAB PO (08:37)
[2022-07-04] MEDS: Metoprolol 50 MG TAB PO (08:37)
[2022-07-04] MEDS: QUEtiapine 25 MG TAB 12.5 MG PO ×2 (08:37→21:58)
[2022-07-04] MEDS: valACYclovir 500 MG TAB PO (08:37)
[2022-07-04] MEDS: Venlafaxine 75 MG CAPCR PO (08:38)
[2022-07-04] MEDS: Folic Acid 1 MG TAB PO (08:38)
[2022-07-04] MEDS: amLODIPine 10 MG TAB PO (08:38)
[2022-07-04] MEDS: Furosemide 20 MG TAB PO ×2 (08:38→16:21)
[2022-07-04] MEDS: Pantoprazole 40 MG TABCR PO (08:38)
[2022-07-04] MEDS: Budesonide/Formoterol 160/4.5 6 GM 60 PUFF INH IH ×2 (09:20→21:58)
[2022-07-04 09:26] VITALS: O2SAT 94
[2022-07-04] MEDS: Doxycycline Hyclate 100 MG CAP PO ×2 (10:52→21:57)
[2022-07-04] MEDS: Ondansetron O.D.T. 4 MG TABEF PO (12:12)
--- NOTE | 2022-07-04 15:04 | W.SURGCON ---
Date of service: 07/04/22 Time of Service: 15:04 Assessment and Plan Assessment and plan (1) Ascites: Status: Acute Assessment and plan: Leticia is a 77 year ol female with ascitis due to cirrhosis. She is having early satiety and SOB. Paracentesis was recommended. Risks and benefits were reviewed. Patient agreed to proceed. History of Present Illness Narrative: Leticia is a pleasant 77 year old female known to our service who has cirrhosis. She underwent a parasenthesis about 3 weeks ago. She has known cirrhosis. She also underwent Lap. Soo prior to that, She was admitted for complications of COVID. Her abdomen is again distended and we have been asked to do another parasenthesis. she denies chest pain. She does complain of SOB and early satiety Consults Consult date: 07/03/22 Requesting physician: Gwyn Blake Review of Systems All systems reviewed & are unremarkable except as noted in HPI and below PFSH All Active Problems (Updated 07/02/22 @ 05:39 by Aydin Joy MD) Pneumonia due to COVID-19 virus (Acute) COVID (Acute) Anxiety (Chronic) Adverse effect of metronidazole (Acute) Medication monitoring encounter (Acute) Ascites (Acute) Advance care planning (Acute) Cirrhosis of liver with ascites (Acute) Animal bite of right hand with infection (Acute) Umbilical hernia (Acute) 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 ascites (Acute) Hyperbilirubinemia (Acute) Shortness of breath (Acute) Elevated blood pressure reading without diagnosis of hypertension (Acute) Left arm pain (Acute) Ambulatory dysfunction (Acute) Incontinence (Acute) Urge incontinence (Acute) Anorexia (Acute) Headache (Acute) Onychomycosis (Acute) Depression (Chronic) Chest pain (Acute) Foot pain, right (Acute) Tendinitis of left rotator cuff (Acute) Macrocytosis (Acute 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 Leukopenia (Acute) Headache (Acute) Epigastric abdominal pain (Acute) Calcific tendinitis of left shoulder (Acute) Pulmonary mass (Acute) spiculated mass Pneumonia (Acute) Depression with suicidal ideation (Acute) Alcohol abuse (Chronic) Diarrhea (Acute) Epigastric pain (Acute) Dehydration (Acute) Hypokalemia (Acute) Discharge planning issues (Acute) Palliative care patient (Acute) Difficult intravenous access (Acute) Multiple IV attempts, usually requires ultrasound placement. PTSD (post-traumatic stress disorder) (Acute) Anemia (Chronic) Depression (Chronic) Foot pain, right (Acute) T12 compression fracture (Acute) Presacral mass (Chronic) Deviated nasal septum (Acute) Frequent falls (Chronic) Head injury (Acute) Ambulatory dysfunction (Chronic) Shoulder pain, right (Chronic) DVT prophylaxis (Acute) Suicidal ideation (Acute) Dry eye (Acute) Pruritus (Acute) Dystrophic nail (Acute) AMBER (acute kidney injury) (Acute) Iron deficiency anemia (Chronic) Alcohol abuse (Chronic) Hypomagnesemia (Chronic) Discharge planning issues (Acute) UTI (urinary tract infection) (Acute) Fall (Acute) Atelectasis of left lung (Chronic) Advance directive on file (Acute) Nodule of upper lobe of right lung (Acute ~09/13/18) 09/13/18 [facility]; 12mm SPICULATED -kb Cataract (Chronic 11/07/15) Hypertension (Chronic) high today; she will check readings at home Hyperlipidemia (Chronic) Back pain, chronic (Chronic) Depression (Chronic) Osteopenia (Chronic) Medical History Adjustment disorder with depressed mood Alcoholic ketosis Anemia Cervical radicular pain neck pain and [facility] 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) pls refrain from alcohol Chronic alcoholism she will not stop drinking unless she checks with me, so that we can help her avert withdrawal I do not think she is capable on her own--she would need placement to achieve required goal of 3 months of sobriety Chronic diarrhea Closed right humeral fracture Corneal ulcer, right (~08/23/18) 08/23/18; [facility] Fracture of humerus, left, closed Genital herpes simplex recurrent gential; suppressive Valtrex GERD (gastroesophageal reflux disease) GI bleed (12/20/16) Hypertension Hypokalemia Hypomagnesemia Incidental lung nodule, greater than or equal to 8mm 1cm, spiculated, stable for many years, recommend f/u in 6 mo Multiple rib fractures 03/11/19 [facility] Non-cardiac chest pain (09/21/16) [facility] 09/21/16 NEGATIVE MP Osteoarthritis Palliative care patient (03/21/17) Pancreatitis, alcoholic, acute Peripheral edema Photophobia of right eye Pleural effusion on left 03/11/19 [facility] Presacral mass (~09/15/18) 09/15/18 [facility] Sciatica right, epidural injuections [facility] Tubular adenoma of colon (01/28/17) Urinary incontinence 01/24/13 urethral suspension and sling at [facility] [place] (bladder suspension 1991) 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 Bladder repair. Repair bladder injury, simple Family History Mother No problems noted. Father , DROWNED at age 50. No problems noted. Sister Personal history of malignant neoplasm MELANOMA Sister No problems noted. Grandfather Personal history of malignant neoplasm STOMACH Grandfather Personal history of malignant neoplasm PROSTATE Grandmother Heart disease DE Acute ill-defined cerebrovascular disease Grandmother Personal history of malignant neoplasm UTERINE Aunt , [place] Heart disease DE Aunt , [place] Heart disease Brother No problems noted. Social History Smoking/Tobacco Use Status: Former Tobacco Use Quit Date: 08/05/20 Smoking risk assessment performed?: Yes Alcohol Intake: current Alcohol Intake frequency: 3 or more drinks per day Alcohol type: hard liquor Drug use: Never Substance use type: does not use Current gender identity: female Do you feel safe at home: Yes Do you feel safe in your relationship?: Yes Exam [facility] Head: normocephalic and atraumatic Resp Effort & Inspection: normal respiratory effort Auscultation: clear to auscultation bilaterally Cardio Palpation: normal PMI Rate: regular rate GI Inspection: distended Palpation: soft, nontender and ascites Results Last Vital Signs Temp 98.2 F 07/04/22 08:13 Pulse 90 07/04/22 08:13 Resp 18 07/04/22 08:13 BP 147/79 H 07/04/22 08:13 Pulse Ox 94 07/04/22 09:26 Labs Result diagrams: 07/04/22 06:00 07/04/22 06:00 Labs: Laboratory Results - last 24 hr 07/04/22 07/04/22 07/04/22 06:00 06:00 06:00 WBC RBC Hgb Hct MCV MCH MCHC RDW Plt Count MPV Immature Gran % Neutrophils % Lymphocytes % Monocytes % Eosinophils % Basophils % Nucleated RBC % Absolute Neutrophils Absolute Lymphocytes Absolute Monocytes Absolute Eosinophils Absolute Basophils RBC Morphology Polychromasia Anisocytosis PT 12.7 H INR 1.3 H APTT 29.4 H D-Dimer 3103 H Sodium 138 Potassium 3.6 D Chloride 103 Carbon Dioxide 25.2 Anion Gap 9.8 BUN 25 H Creatinine 1.3 H Est GFR (CKD-EPI 2020) 42.62 Glucose 148 H Calcium 9.1 Total Bilirubin 0.7 AST 55 H ALT 32 Alkaline Phosphatase 111 Lactate Dehydrogenase 121 C-Reactive Protein 0.42 H Total Protein 5.8 L Albumin 3.0 L 07/04/22 06:00 WBC 4.95 RBC 3.72 L Hgb 11.3 Hct 33.6 L MCV 90 MCH 30.4 MCHC 33.6 D RDW 20.7 H Plt Count 103 L MPV 9.2 Immature Gran % 0.8 Neutrophils % 76.9 Lymphocytes % 15.8 Monocytes % 6.3 Eosinophils % 0.0 Basophils % 0.2 Nucleated RBC % 0.0 Absolute Neutrophils 3.81 Absolute Lymphocytes 0.78 L Absolute Monocytes 0.31 Absolute Eosinophils 0.00 Absolute Basophils 0.01 RBC Morphology See Below Polychromasia Present Anisocytosis 3+ PT INR APTT D-Dimer Sodium Potassium Chloride Carbon Dioxide Anion Gap BUN Creatinine Est GFR (CKD-EPI 2020) Glucose Calcium Total Bilirubin AST ALT Alkaline Phosphatase Lactate Dehydrogenase C-Reactive Protein Total Protein Albumin Procedures Paracentesis Time out performed: Yes Indication: Ascites Procedure: therapeutic paracentesis Location: LLQ Local anesthetic used: lidocaine 1% Amount of anesthesia used (ml): 10 Bedside ultrasound used: no Preparation: 11 blade used to make declan in skin Amount of fluid obtained (ml): 2,700 Fluid: clear Size of needle used: 14 Post procedure exam: awake, alert Patient tolerated procedure: well Complications: none Additional comments: After informed consent was obtained from the patient, she was placed on her bed in a supine position. The left lower quadrant was prepped and draped in a sterile surgical fashion. 1% lidocaine was injected into the dermis and down to the fascia. A small incision was made with an 11 blade. The needle and sheath that came in the kit was slowly advanced through the subcutaneous tissue and the peritoneum into the abdomen. As soon as serous fluid was suctioned the sheath was advanced over the needle into the abdomen and the needle was removed. The sheath was then attached to suction canisters and a total of 2.7 L of serous fluid was removed without complication. The patient's blood pressure was checked throughout the procedure and continued to stay stable in the low 100s. Once the procedure was done the sheath was removed and a small Band-Aid was applied over the incision. The patient was slowly placed into a sitting position. Patient did not develop any dizziness and so she was allowed to go home with her . Patient did well and there were no immediate complications.
[2022-07-04 16:21] VITALS: BP 111/69; PULSE 83; RESP 16; TEMP 36.6; O2SAT 95
--- NOTE | 2022-07-04 17:18 | W.PM.PROGNOT ---
Date of Service Date of service: 07/04/22 Time of Service: 17:18 Assessment and Plan Assessment and plan (1) Pneumonia due to COVID-19 virus: Status: Acute Assessment and plan: Not requiring supplemental O2. Feels better. Continue Remdesivir currently on day #4 of 5. Continue Decadron, encourage patient to prone and to use her acapella and I-S. Covid precautions. Will continue hospitalization until completion of her Remdesivir. (2) Cirrhosis of liver with ascites: Status: Acute Assessment and plan: S/P paracentesis today with removal of 2.7L. Feels much better. (3) Ascites: Status: Acute Assessment and plan: As above. (4) Chronic alcoholism: Assessment and plan: No history of significant acute alcohol withdrawal. Initiate CIWA monitoring if she does show signs/sxs of withdrawal. Thiamine, folate and MVI continued. (5) Chronic alcoholic gastritis: Assessment and plan: Cont pantoprazole and carafate. No acute flare of sxs. Qualifiers: Gastritis bleeding: without bleeding Qualified Code(s): K29.20 - Alcoholic gastritis without bleeding (6) Hypertension: Assessment and plan: Cont metoprolol and amlodipine. Also on lasix and spironolactone. Monitor. Qualifiers: Hypertension type: essential hypertension Qualified Code(s): I10 - Essential (primary) hypertension (7) Palliative care patient: Status: Acute Assessment and plan: DNR/DNI Seen by palliative on 06/01/22. Subjective Subjective Patient reports: no new complaints, feels better and afebrile; denies nausea, vomiting or shortness of breath Interval history since last seen: She states she feels she is ready to go home. S/P paracentesis this afternoon with much improved abdominal comfort. Exam Narrative Exam Narrative: Gen: Sitting up in bed eating dinner. Looks more rested. Lungs are clear anteriorly; Nonlabored breathing. Heart regular rate and rhythm Abdomen is mildly distended. NT. Exts: no pitting edema or calf tenderness. Objective Last Vital Signs Temp 36.6 C 07/04/22 16:21 Pulse 83 07/04/22 16:21 Resp 16 07/04/22 16:21 BP 111/69 07/04/22 16:21 Pulse Ox 95 07/04/22 16:21 Laboratory Results - last 24 hr 07/04/22 07/04/22 07/04/22 06:00 06:00 06:00 WBC RBC Hgb Hct MCV MCH MCHC RDW Plt Count MPV Immature Gran % Neutrophils % Lymphocytes % Monocytes % Eosinophils % Basophils % Nucleated RBC % Absolute Neutrophils Absolute Lymphocytes Absolute Monocytes Absolute Eosinophils Absolute Basophils RBC Morphology Polychromasia Anisocytosis PT 12.7 H INR 1.3 H APTT 29.4 H D-Dimer 3103 H Sodium 138 Potassium 3.6 D Chloride 103 Carbon Dioxide 25.2 Anion Gap 9.8 BUN 25 H Creatinine 1.3 H Est GFR (CKD-EPI 2020) 42.62 Glucose 148 H Calcium 9.1 Total Bilirubin 0.7 AST 55 H ALT 32 Alkaline Phosphatase 111 Lactate Dehydrogenase 121 C-Reactive Protein 0.42 H Total Protein 5.8 L Albumin 3.0 L 07/04/22 06:00 WBC 4.95 RBC 3.72 L Hgb 11.3 Hct 33.6 L MCV 90 MCH 30.4 MCHC 33.6 D RDW 20.7 H Plt Count 103 L MPV 9.2 Immature Gran % 0.8 Neutrophils % 76.9 Lymphocytes % 15.8 Monocytes % 6.3 Eosinophils % 0.0 Basophils % 0.2 Nucleated RBC % 0.0 Absolute Neutrophils 3.81 Absolute Lymphocytes 0.78 L Absolute Monocytes 0.31 Absolute Eosinophils 0.00 Absolute Basophils 0.01 RBC Morphology See Below Polychromasia Present Anisocytosis 3+ PT INR APTT D-Dimer Sodium Potassium Chloride Carbon Dioxide Anion Gap BUN Creatinine Est GFR (CKD-EPI 2020) Glucose Calcium Total Bilirubin AST ALT Alkaline Phosphatase Lactate Dehydrogenase C-Reactive Protein Total Protein Albumin PAWSS Have you Been Recently Intoxicated or Drunk Within the Last 30 days?: Yes Have you Ever Experienced Previous Episodes of Alcohol Withdrawal?: No Have you ever Experienced Withdrawal Seizures?: No Have you ever Experienced Delirium Tremens(DT)s?: No Have you ever undergone Alcohol Rehabilitation Treatment (i.e, inpt ot outpatient treatment programs)?: No Have you ever Experienced Blackouts?: No Have you ever Combined Alcohol with other Downers within the last 90 days?: No Have you ever Combined Alcohol with any other Substance of Abuse during the last 90 days?: No Positive Blood Alcohol level on Presentation? [PCS.BAL]: Yes Evidence of Increased Autonomic Activity (i.e. HR>120, tremor, sweating, agitation, nausea)?: No Result: 2
[2022-07-04 21:50] VITALS: O2SAT 96
[2022-07-04] MEDS: Sucralfate 1 GM TAB PO (21:56)
[2022-07-04] MEDS: Melatonin 3 MG TAB 9 MG PO (21:57)
[2022-07-04] MEDS: Mirtazapine 15 MG TAB 7.5 MG PO (21:57)
[2022-07-04] MEDS: Ferrous Sulfate 325 MG TAB PO (21:58)
[2022-07-05] MEDS: LORazepam 1 MG TAB PO (00:13)
[2022-07-05 00:14] VITALS: BP 121/81; PULSE 77; RESP 20; TEMP 36.4; O2SAT 96
[2022-07-05 06:55] LABS: C-Reactive Protein 0.25 mg/dL (0.0-0.3)
[2022-07-05 07:17] LABS: D-Dimer 1889 ng/mlFEU (<500)
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
[2022-07-05] MEDS: Budesonide/Formoterol 160/4.5 6 GM 60 PUFF INH IH (07:56)
[2022-07-05 08:38] VITALS: BP 130/77; PULSE 89; RESP 18; TEMP 36.2; O2SAT 95
[2022-07-05] MEDS: Normal Saline Flush 10 ML SYR IVP (08:39)
[2022-07-05] MEDS: Spironolactone 25 MG TAB 50 MG PO (08:40)
[2022-07-05] MEDS: Venlafaxine 75 MG CAPCR PO (08:40)
[2022-07-05] MEDS: busPIRone 5 MG TAB PO (08:40)
[2022-07-05] MEDS: Refresh PLUS Eye Drops 0.4ml OU ×2 (08:40→12:01)
[2022-07-05] MEDS: Furosemide 20 MG TAB PO (08:40)
[2022-07-05] MEDS: valACYclovir 500 MG TAB PO (08:40)
[2022-07-05] MEDS: Metoprolol 50 MG TAB PO (08:41)
[2022-07-05] MEDS: Pantoprazole 40 MG TABCR PO (08:41)
[2022-07-05] MEDS: amLODIPine 10 MG TAB PO (08:41)
[2022-07-05] MEDS: QUEtiapine 25 MG TAB 12.5 MG PO (08:41)
[2022-07-05] MEDS: Dexamethasone 4 MG/ML VIAL 6 MG IVP (08:41)
[2022-07-05] MEDS: Sucralfate 1 GM TAB PO (08:49)
[2022-07-05] MEDS: Zinc Sulfate 220 MG TAB PO (08:50)
[2022-07-05] MEDS: Folic Acid 1 MG TAB PO (08:51)
[2022-07-05] MEDS: Ondansetron O.D.T. 4 MG TABEF PO (10:20)
[2022-07-05] MEDS: Doxycycline Hyclate 100 MG CAP PO (10:20)
--- NOTE | 2022-07-05 10:42 | IN_ITS ---
Date of service: 07/05/22 Time of Service: 10:42 PT Notes Visit Reasons: Hypoxia, Covid Positive Inpatient Physical Therapy Evaluation Date: 07/05/2022 Referring Doctor:?Aydin Joy MD PT Orders: PT CONSULT:Eval/Treat. Precautions: Standard. Frequent falls.? Activity as tolerated. Patient Profile/Admitting Diagnosis:? Leticia is a 75-year-old female COVID19 vaccinated and boosted female on palliative care who presented to the ED on 07/01/2022 with diagnoses of COVID-19 infection, cirrhosis of liver with ascites, chronic ETOH gastritis, and HTN. PMHX: All Active Problems?(Updated 07/02/22 @ 05:39 by Aydin Joy MD) Pneumonia due to COVID-19 virus (Acute) COVID (Acute) Anxiety (Chronic) Adverse effect of metronidazole (Acute) Medication monitoring encounter (Acute) Ascites (Acute) Advance care planning (Acute) Cirrhosis of liver with ascites (Acute) Animal bite of right hand with infection (Acute) Umbilical hernia (Acute) 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 ascites (Acute) Hyperbilirubinemia (Acute) Shortness of breath (Acute) Elevated blood pressure reading without diagnosis of hypertension (Acute) Left arm pain (Acute) Ambulatory dysfunction (Acute) Incontinence (Acute) Urge incontinence (Acute) Anorexia (Acute) Headache (Acute) Onychomycosis (Acute) Depression (Chronic) Chest pain (Acute) Foot pain, right (Acute) Tendinitis of left rotator cuff (Acute) Macrocytosis (Acute 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 Leukopenia (Acute) Headache (Acute) Epigastric abdominal pain (Acute) Calcific tendinitis of left shoulder (Acute) Pulmonary mass (Acute) spiculated massPneumonia (Acute) Depression with suicidal ideation (Acute) Alcohol abuse (Chronic) Diarrhea (Acute) Epigastric pain (Acute) Dehydration (Acute) Hypokalemia (Acute) Discharge planning issues (Acute) Palliative care patient (Acute) Difficult intravenous access (Acute) Multiple IV attempts, usually requires ultrasound placement. PTSD (post-traumatic stress disorder) (Acute) Anemia (Chronic) Depression (Chronic) Foot pain, right (Acute) T12 compression fracture (Acute) Presacral mass (Chronic) Deviated nasal septum (Acute) Frequent falls (Chronic) Head injury (Acute) Ambulatory dysfunction (Chronic) Shoulder pain, right (Chronic) DVT prophylaxis (Acute) Suicidal ideation (Acute) Dry eye (Acute) Pruritus (Acute) Dystrophic nail (Acute) AMBER (acute kidney injury) (Acute) Iron deficiency anemia (Chronic) Alcohol abuse (Chronic) Hypomagnesemia (Chronic) Discharge planning issues (Acute) UTI (urinary tract infection) (Acute) Fall (Acute) Atelectasis of left lung (Chronic) Advance directive on file (Acute) Nodule of upper lobe of right lung (Acute ~09/13/18) 09/13/18 [facility]; 12mm SPICULATED -kb Cataract (Chronic 11/07/15) Hypertension (Chronic) high today; she will check readings at home Hyperlipidemia (Chronic) Back pain, chronic (Chronic) Depression (Chronic) Osteopenia (Chronic) Medical History? Adjustment disorder with depressed mood Alcoholic ketosis Anemia Cervical radicular pain neck pain and DJD [facility] 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) pls refrain from alcohol Chronic alcoholism she will not stop drinking unless she checks with me, so that we can help her avert withdrawal. I do not think she is capable on her own--she would need placement to achieve required goal of 3 months of sobrietyChronic diarrhea Closed right humeral fracture Corneal ulcer, right (~08/23/18) 08/23/18; [facility], left, closed Genital herpes simplex recurrent gential; suppressive Valtrex GERD (gastroesophageal reflux disease) GI bleed (12/20/16) Hypertension Hypokalemia Hypomagnesemia Incidental lung nodule, greater than or equal to 8mm 1cm, spiculated, stable for many years, recommend f/u in 6 mo Multiple rib fractures [facility] [place] [facility] [place] NEGATIVE MP Osteoarthritis Palliative care patient (03/21/17) Pancreatitis, alcoholic, acute Peripheral edema Photophobia of right eye Pleural effusion on left 03/11/19 [facility], [facility] Tubular adenoma of colon (01/28/17) Urinary incontinence 01/24/13 [place] [facility] [place] [facility] [place] 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 Colonoscopy - MAC (01/28/17) EGD - MAC (12/20/16) History of bilateral ligation of fallopian tubes History of Surgical Procedure a. Bladder repair.Repair bladder injury, simple Social History/Home Situation: Leticia lives in a private home in [place], [place]. She has a caregiver who comes in three times per week for 2 hours each time to assist with laundry, minor house chores, and grocery shopping.? Patient is independent with ADLs using a front-wheeled walker. She receives meals on wheels. She no longer drives. Equipment Owned/DME: 3WW, FWW, SC, grab bars, emergency alert device Subjective: Complains of tummy pain which she states she had had for several days. Leticia indicates that she now uses a front-wheeled walker at home.? Still feels crappy but is agreeable to getting out of bed and transferring to the bedside commode. [place] nauseous stadning up but no vomiting. Objective: General Observation:?Diarrhea episode when she stood up to transfer. Appears fatigued but agreed to participation with encouragement. Mental Status: Alert and oriented. Aware of where she is. Unclear about time and date. Pain: Abdominal pain ROM: Right Upper Extremity: ? Shoulder Flexion allows up to 90 degrees. Shoulder abduction allows up to 70 degrees. Elbow flexion WFL. Wrist flexion WFL. Functional opening and closing of hand WFL. Left Upper Extremity: ? Shoulder Flexion allows up to 100 degrees. Shoulder abduction allows up to 90 degrees. Elbow flexion WFL. Wrist flexion WFL. Functional opening and closing of hand WFL. Right Lower Extremity: Hip flexion allows up to 20 degrees beyond 90 while seated at edge of bed. Hip abduction WFL. Knee flexion 30-90 degrees. Knee extension -30 degrees.? Ankle dorsiflexion WFL. Ankle plantarflexion WFL. Left Lower Extremity: Hip flexion allows up to 20 degrees beyond 90 while seated at edge of bed. Hip abduction WFL. Knee flexion 30-90 degrees. Knee extension - 30 degrees.? Ankle dorsiflexion WFL. Ankle plantarflexion WFL. Strength: Right Upper Extremity: Shoulder flexors 3-/5. Shoulder abductors 3-/5. Elbow flexors 4/5. Elbow extensors 4/5. Bus Inspector strong. Left Upper Extremity: Shoulder flexors 3-/5. Shoulder abductors 3-/5. Elbow fl exors 4/5. Elbow extensors 4/5. Bus Inspector strong. Right Lower Extremity: Hip flexors 3-/5. Hip abductors 4-/5. Knee flexors 3-/5. Knee extensors 3-/5. Ankle dorsiflexors 4-/5. Ankle plantarflexors 4-/5. Left Lower Extremity: Hip flexors 3-/5. Hip abductors 4-/5. Knee flexors 3-/5. Knee extensors 3-/5. Ankle dorsiflexors 4-/5. Ankle plantarflexors 4-/5. Bed Mobility/Transfers: Supine to sit standby assist Sit to stand standby assist Stand to sit standby assist Bed to chair standby assist Gait: Patient exhibited gait for 5 feet requiring standby assist from PT. Decreased violeta. Decreased step length and height. No LOB. Balance: Static Sitting: Normal Dynamic Sitting: Normal Static Standing: Fair Dynamic Standing: Fair Special Tests: Mobility Limitations Standardized Measure [facility] 6 clicks Basic Mobility Inpatient Short Form: Raw Score: 22 ? CMS Score: 21% deficit Informed Consent/Education: Patient instructed in purpose of PT consult and plan of care. Assessment: Patient presents with clinical signs and symptoms consistent with current/admitting diagnoses that have resulted to mobility limitations, gait instability, generalized weakness, and impairment of motor control as demonstrated by the following impairment level findings: 1.? Decreased strength to B UE/LE major muscle groups 2.? Impaired static and dynamic standing balance Impairments are contributing to the following functional limitations: 2.? Inability to safely ambulate without assistive device 3.? Increase completion time for mobility ADL performance 4.? Increased fall risk Patient is assessed as a 14974 moderate complexity based on the following: History: 75-year-old female with impairment level findings, functional impairments, medical history, and [facility] deficit score of 47% Examination: Demonstrable impairment in strength, balance, and range of motion with underlying impairments and functional limitations as documented above Presentation: Evolving Decision Makin moderate complexity Goals: Goals X1 week 1. Supine-Sit independent 2. Sit-Supine independent 3. Sit-Stand independent 4. Stand-Sit independent 5. Bed-Chair independent 6. Chair-Bed independent 7.? Independent gait on level surface with use of straight cane for at least 100 feet without report of pain nor dyspnea 8.? Independent stair negotiation while holding onto bilateral rails for at least 5 steps without report of pain nor dyspnea 9. Good static and dynamic standing balance/tolerance DISCHARGE RECOMMENDATIONS: [] ? Home with no services [] [X] ? Home with services.? Home when medically cleared by hospitalist.? Patient will benefit from home health PT services in order to progress mobility level using least restrictive assistive ambulatory device, assess home safety, identify additional equipment needs, and establish a functional maintenance program that will increase ability of patient to remain at home. [] ? Home with outpatient PT [] [] ? SNF for continued rehabilitation [] [] ? [facility] [] [] ? SNF versus LTC based on ability to participate and progress [] TREATMENT CODE/TIME: 99114 x 20 minutes, 70521 x 11 minutes beginning at 10:42 AM. Thank you for the opportunity to participate in the care of this patient. Tawana Cruz PT, DPT, CLT [facility] [place], [place]
--- NOTE | 2022-07-05 12:40 | PDOC.HHF2F_ITS ---
Home Health Certification Home Health Certification: 1. Encounter Date and Reason I certify that Leticia Ingram was seen by Aydin Joy MD on 07/05/22 and that I had a [id number] encounter with this patient that meets the physician face to face encounter requirements. 2. Clinical Findings Supporting Skilled Need and Homebound Status I certify that home health services are medically necessary, include either intermittent custodial and/or physical/speech therapy, and that this p atient is homebound in that absences from the home require considerable and taxing effort and are infrequent or of short duration, or are attributable to the need to receive medical care. [X] (a) Attached documentation from encounter provides clinical findings supporting skilled need and homebound status (including what assistance patient requires to leave the home). The encounter with the patient was in whole, or in part, for the following medical condition, which is the primary reason for home health care: Hypoxia, Covid Positive [facility]:Monitor pts medical condition, instruct on medication regimen and signs and symptoms to reort. She is at risk of decompensation and/or adverse events due to recent hospitalization. Physical Therapy:Restore the patient's ability to ambulate independently and safely. Speech Therapy: Homebound:Unable to leave home w/o assistance and ambulation is severely limited due to decreased strength and endurance. 3. Certification and Authentication I certify that I composed the above information based on my clinical judgement relating to this patient's medical condition and, if applicable, clinical findings communicated to me by the NPP or inpatient physician who performed the Home Health Referral. All further orders will be obtained through ____Lavelle Galindo (Community Based Physician - PCP)
--- NOTE | 2022-07-05 12:43 | DSE_ITS ---
Date of service: 07/05/22 Time of Service: 12:43 DS: Diagnosis Discharge Diagnosis (1) Pneumonia due to COVID-19 virus: Status: Acute Asessment and Plan: Now 8 days post-diagnosis. No longer requiring supplemental oxygen. Finished 5 dose course of Remdesivir. Covid precautions for 2 more days. (2) Anxiety: Status: Chronic Asessment and Plan: Cont Effexor XR (3) Cirrhosis of liver with ascites: Status: Acute Asessment and Plan: S/P paracentesis of 2.7 L of fluid Abdominal discomfort much improved. Self monitor and nursing to monitor for re-accumulation. Cont spironolactone and lasix. (4) Depression: Status: Chronic Asessment and Plan: Cont Effexor XR. States she is feeling more depressed by being in the hospital. (5) Palliative care patient: Status: Acute Asessment and Plan: Palliative evaluated patient during this hospitalization. Discharge Plan Disposition Patient Disposition: HOME W/HOME HEALTH SERVICE Condition: Improving Discharge Details Reason For Visit: Hypoxia, Covid Positive Admit Date/Time: 07/01/22 22:49 Admit Provider: Aydin Joy Attending Provider: Aydin Joy Primary Care Provider: Lavelle Galindo Hospital Course Hospital Course: This is a 77 yo female with a PMH of alcohol abuse disorder, cirrhosis with ascites, gastritis, anemia, depression and PTSD, HTN, HLD, acute cholecystitis with cholecystecomty in Apr of this year.? She presented to the ED with concerns of feeling confused, generalized body aches and loose stools for 5 days.? She was dxd with COVID-19 5 days ago.? She endorses receiving a Covid booster from her PCP on 06/10/22.? She was alert and oriented x2 on admission to the ED. W/U showed an initial RA O2 saturation of 92%; this later dropped into the high 80's and 2L of O2 per NC initiated.? She was afebrile. WBC count 3.75. Hgb 12. D-dimer 4988. Procal neg. Na 143. K 4.2. Cr 1.0. TBili 1.6. AST 94. ALT 42.? CT chest: No evidence of P.E. Borderline mild aneurysmal dilatation of ascending aortic sement at 4.0 cm diameter.? Mild bronchial wall thickening. Patchy alveolar opacities in dependent lung gatica bilaterally; Pneumonia vs atelectasis. Sixteen mm nodule of right thyroid lobe; recommended nonemergent thryoid US. Admitted for further treatment and monitoring. See Diagnosis Thyroid US ordered to obtain within the next 1 month; nodule F/U with PCP in 1-2 weeks. Home Meds and New Rx's Prescriptions: Continued Xiidra 5 % dropperette 1 drp ophthalmic (eye) BID Rx Instructions: administer approximately 12 hours apart venlafaxine 75 mg capsule,extended release 24hr 75 mg PO DAILY Qty: 90 11RF Hold Instructions: Home Medication placed on hold at Doctor's office melatonin 3 mg capsule 3 mg PO .pm PRN (Reason: sleep) Qty: 90 4RF Rx Instructions: take in the middle of the night if you cannot get back to sleep ( total dose per 24 hrs - 9mg) ipratropium-albuterol 0.5 mg-3 mg(2.5 mg base)/3 mL solution for nebulization 3 ml inhalation Q6H PRN quetiapine 25 mg tablet See Rx Instructions PO BID Qty: 30 2RF Rx Instructions: 0.5 tab PO twice a day; lorazepam 1 mg tablet 1 mg PO QHS PRN (Reason: sleep) Qty: 20 0RF multivitamin [Multiple Vitamins] Tablet 1 tab PO DAILY Qty: 90 3RF albuterol sulfate [Ventolin HFA] 90 mcg/actuation HFA aerosol inhaler 2 puff inhalation QID PRN (Reason: shortness of breath or wheezing) Qty: 8.5 1RF amlodipine 10 mg tablet 10 mg PO DAILY Qty: 90 3RF buspirone 5 mg tablet 5 mg PO BID Qty: 60 5RF folic acid 1 mg tablet 1 mg PO DAILY Qty: 90 3RF melatonin 3 mg capsule 6 mg PO HS Qty: 180 3RF metoprolol tartrate 50 mg tablet 50 mg PO DAILY Qty: 90 3RF mirtazapine 7.5 mg tablet 7.5 mg PO QHS Qty: 90 4RF ondansetron 4 mg tablet,disintegrating 4 mg PO Q8H PRN (Reason: nausea and vomiting) Qty: 20 2RF pantoprazole 40 mg tablet,delayed release (DR/EC) 40 mg PO DAILY Qty: 90 3RF sucralfate 1 gram tablet 1 g PO BID Qty: 60 11RF thiamine HCl (vitamin B1) 100 mg tablet 100 mg PO DAILY Qty: 90 3RF valacyclovir [Valtrex] 500 mg tablet 500 mg PO DAILY Qty: 90 3RF Rx Instructions: Take 500 mg BID for 3 days, then take daily fluticasone propionate 50 mcg/actuation spray,suspension 2 spray NS daily prn Qty: 16 5RF molnupiravir 200 mg capsule 800 mg PO Q12H 5 Days Qty: 40 0RF carboxymethylcellulose sodium [Refresh Plus] 0.5 % Dropperette 1 drp OU Q4H WHILE AWAKE Qty: 30 0RF Label Comments: 08/15/19 pt states that she took her blister pack of meds but that she vomited them up cyanocobalamin (vitamin B-12) [Vitamin B-12] 500 mcg Tablet 1,000 mcg PO DAILY Qty: 0 0RF pantoprazole 40 mg Tablet,Delayed Release (Dr/Ec) 40 mg PO BID@729,1999 Qty: 60 0RF spironolactone 25 mg Tablet 50 mg PO BID Qty: 60 0RF furosemide 20 mg Tablet 20 mg PO BID@0830,1600 Qty: 60 0RF Lactobacillus rhamnosus GG 10 billion cell capsule 1 cap PO DAILY Qty: 30 0RF ferrous sulfate 325 mg (65 mg iron) Tablet 325 mg PO BID Qty: 30 0RF Rx Instructions: do not take within 2 hours of antibiotics No Action budesonide [Pulmicort] 0.5 mg/2 mL suspension for nebulization 0.5 mg inhalation DAILY Qty: 60 5RF Discharge Instructions Instructions: How To Wash Your Hands (DC), Shortness of Breath (DC), COVID-19: Slow the Coronavirus Spread (DC) Additional Instructions: Remain at home for 2 more days; Covid-19 precaution. Stand Alone Forms: Nursing Discharge Form Referrals: Lavelle Galindo MD [Primary Care Provider] - 07/15/22 11:00 am Activity:: Activity as Tolerated Equipment/Supplies:: No Equipment Needed Diet:: Resume usual home diet Discharge Orders Discharge Orders: Discharge Order (Routine); Ordered 07/05/22 Ordered By: Aydin Joy Other Ambulatory Orders: US thyroid (Routine) Timeframe: 1 Month Location: None Selected Ordered By: Aydin Joy DS: Summary Time Spent with Patient providing and/or coordinating discharge services: Greater than 30 minutes Status at Discharge Functional status at discharge: uses cane/walker Overall status at discharge: patient is progressing back to baseline Mental Status: mental status grossly normal Speech and Movement: speech clear Mood: dysthymic mood Affect: blunted Exam Narrative Exam Narrative: Gen:Lying in bed. Looks sad. States she has to go home; can't stand being in the hospital any longer. Lungs are clear anteriorly; Nonlabored breathing. Heart regular rate and rhythm Abdomen is mildly distended. NT. Exts: no pitting edema or calf tenderness. Psych Mental Status: mental status grossly normal Speech and Movement: speech clear Mood: dysthymic mood Affect: blunted DS: Data Vitals/I&O Vitals and I&O: Vital Signs Temperature 36.2 C L 07/05/22 08:38 Temperature Source Tympanic 07/05/22 08:38 Pulse 89 07/05/22 08:38 Pulse Rhythm Regular 07/05/22 08:30 Pulse 107 H 07/01/22 22:40 Respiratory Rate 18 07/05/22 08:38 Respiratory Effort 07/05/22 08:30 Respiratory Depth Normal 07/05/22 08:30 Respiratory Pattern Normal 07/05/22 08:30 Blood Pressure 130/77 07/05/22 08:38 Blood Pressure Mean 119 07/01/22 20:45 Pulse Oximetry 95 07/05/22 08:38 Oxygen Delivery Method Room Air 07/05/22 08:38 Oxygen Flow Rate 0 07/05/22 08:38 Pain Level 0 07/05/22 08:38 Comment 07/04/22 02:54 Intake & Output 07/04/22 07/05/22 07/05/22 23:59 11:59 23:59 Intake Total 850 / 1110 Output Total 200 / 200 Balance 650 / 910 Intake: IV 250 / 510 Oral 600 / 600 Output: Urine 200 / 200 Other: Urine Color Pale Yellow Urine Appearance Clear Clear Urine Odor None Stool Size Moderate Stool Characteristics Soft Formed Voiding Methods Diaper Diaper Incontinent Incontinent Data Completed and Pending Labs on day of discharge: Labs from last 24 hours 07/05/22 07/05/22 05:40 05:40 D-Dimer 1889 H C-Reactive Protein 0.25 PFSH All Active Problems (Updated 07/05/22 @ 12:59 by Aydin Joy MD) Thyroid nodule (Acute) Palliative care patient (Acute) Pneumonia due to COVID-19 virus (Acute) COVID (Acute) Anxiety (Chronic) Adverse effect of metronidazole (Acute) Medication monitoring encounter (Acute) Ascites (Acute) Advance care planning (Acute) Cirrhosis of liver with ascites (Acute) Animal bite of right hand with infection (Acute) Umbilical hernia (Acute) 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 ascites (Acute) Hyperbilirubinemia (Acute) Shortness of breath (Acute) Elevated blood pressure reading without diagnosis of hypertension (Acute) Left arm pain (Acute) Ambulatory dysfunction (Acute) Incontinence (Acute) Urge incontinence (Acute) Anorexia (Acute) Headache (Acute) Onychomycosis (Acute) Depression (Chronic) Chest pain (Acute) Foot pain, right (Acute) Tendinitis of left rotator cuff (Acute) Macrocytosis (Acute 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 Leukopenia (Acute) Headache (Acute) Epigastric abdominal pain (Acute) Calcific tendinitis of left shoulder (Acute) Pulmonary mass (Acute) spiculated mass Pneumonia (Acute) Depression with suicidal ideation (Acute) Alcohol abuse (Chronic) Diarrhea (Acute) Epigastric pain (Acute) Dehydration (Acute) Hypokalemia (Acute) Discharge planning issues (Acute) Palliative care patient (Acute) Difficult intravenous access (Acute) Multiple IV attempts, usually requires ultrasound placement. PTSD (post-traumatic stress disorder) (Acute) Anemia (Chronic) Depression (Chronic) Foot pain, right (Acute) T12 compression fracture (Acute) Presacral mass (Chronic) Deviated nasal septum (Acute) Frequent falls (Chronic) Head injury (Acute) Ambulatory dysfunction (Chronic) Shoulder pain, right (Chronic) DVT prophylaxis (Acute) Suicidal ideation (Acute) Dry eye (Acute) Pruritus (Acute) Dystrophic nail (Acute) AMBER (acute kidney injury) (Acute) Iron deficiency anemia (Chronic) Alcohol abuse (Chronic) Hypomagnesemia (Chronic) Discharge planning issues (Acute) UTI (urinary tract infection) (Acute) Fall (Acute) Atelectasis of left lung (Chronic) Advance directive on file (Acute) Nodule of upper lobe of right lung (Acute ~09/13/18) 09/13/18 [facility]; 12mm SPICULATED -kb Cataract (Chronic 11/07/15) Hypertension (Chronic) high today; she will check readings at home Hyperlipidemia (Chronic) Back pain, chronic (Chronic) Depression (Chronic) Osteopenia (Chronic) Medical History Adjustment disorder with depressed mood Alcoholic ketosis Anemia Cervical radicular pain neck pain and DJD [facility] 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) pls refrain from alcohol Chronic alcoholism she will not stop drinking unless she checks with me, so that we can help her avert withdrawal I do not think she is capable on her own--she would need placement to achieve required goal of 3 months of sobriety Chronic diarrhea Closed right humeral fracture Corneal ulcer, right (~08/23/18) 08/23/18; [facility]- Fracture of humerus, left, closed Genital herpes simplex recurrent gential; suppressive Valtrex GERD (gastroesophageal reflux disease) GI bleed (12/20/16) Hypertension Hypokalemia Hypomagnesemia Incidental lung nodule, greater than or equal to 8mm 1cm, spiculated, stable for many years, recommend f/u in 6 mo Multiple rib fractures 03/11/19 [facility] Non-cardiac chest pain (09/21/16) [facility] [place] NEGATIVE MP Osteoarthritis Palliative care patient (03/21/17) Pancreatitis, alcoholic, acute Peripheral edema Photophobia of right eye Pleural effusion on left 03/11/19 [facility] Presacral mass (~09/15/18) 09/15/18 [facility] Sciatica right, epidural injuections [facility] Tubular adenoma of colon (01/28/17) Urinary incontinence 01/24/13 urethral suspension and sling at [facility] (bladder suspension 1991) 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 Bladder repair. Repair bladder injury, simple Family History Mother No problems noted. Father , DROWNED at age 50. No problems noted. Sister Personal history of malignant neoplasm MELANOMA Sister No problems noted. Grandfather Personal history of malignant neoplasm STOMACH Grandfather Personal history of malignant neoplasm PROSTATE Grandmother Heart disease MA Acute ill-defined cerebrovascular disease Grandmother Personal history of malignant neoplasm UTERINE Aunt , MA Heart disease MA Aunt , MA Heart disease Brother No problems noted. Social History Smoking/Tobacco Use Status: Former Tobacco Use Quit Date: 08/05/20 Smoking risk assessment performed?: Yes Alcohol Intake: current Alcohol Intake frequency: 3 or more drinks per day Alcohol type: hard liquor Drug use: Never Substance use type: does not use Current gender identity: female Do you feel safe at home: Yes Do you feel safe in your relationship?: Yes
--- NOTE | 2022-07-05 16:01 | PDOC.CMDIS ---
- If Service Date Differs Date of service: 07/05/22 Time of Service: 16:01 LACE Index Scoring Tool - Questions: Length of Stay (in days): 4 - 6 Acuity (Admit via E.D.?): Yes Comorbidities: Any Tumor, Liver or Renal Disease E.D. Visits: 10 - Answers: Total Score: 16 Risk of Readmission: High Risk Care Management Discharge Reason for Hospitalization: hypoxia, covid positive Discharge Plan: Leticia will return home today with new orders for HH RN, PT, OT. Her sister will drive her home via private vehicle. She will follow up with her PCP and discharge plan of care. She is happy to be going home. Patient/Family Education Needs: Review discharge instructions and limitations, discussion of self care needs including ask me three. Services Needed at Discharge: Home Health Care Services (HH RN, PT, OT)
--- NOTE | 2022-07-07 09:41 | INDS_ITS ---
Date of service: 07/07/22 PT Notes Visit Reasons: Hypoxia, Covid Positive Physical Therapy Inpatient Discharge Summary Date: 07/07/2022 Dates of service: 07/05/2022 only This is a clinical summary of care provided for the duration of dates listed above. No charge was made in the completion of this documentation. Referring Doctor:?Aydin Joy MD PT Orders: PT CONSULT:Eval/Treat. Precautions: Standard. Frequent falls.? Activity as tolerated. Patient Profile/Admitting Diagnosis:? Leticia is a 75-year-old female COVID19 vaccinated and boosted female on palliative care who presented to the ED on 07/01/2022 with diagnoses of COVID-19 infection, cirrhosis of liver with ascites,? chronic ETOH gastritis,? and HTN. PMHX: All Active Problems?(Updated 07/02/22 @ 05:39 by Aydin Joy MD) Pneumonia due to COVID-19 virus (Acute) COVID (Acute) Anxiety (Chronic) Adverse effect of metronidazole (Acute) Medication monitoring encounter (Acute) Ascites (Acute) Advance care planning (Acute) Cirrhosis of liver with ascites (Acute) Animal bite of right hand with infection (Acute) Umbilical hernia (Acute) 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 ascites (Acute) Hyperbilirubinemia (Acute) Shortness of breath (Acute) Elevated blood pressure reading without diagnosis of hypertension (Acute) Left arm pain (Acute) Ambulatory dysfunction (Acute) Incontinence (Acute) Urge incontinence (Acute) Anorexia (Acute) Headache (Acute) Onychomycosis (Acute) Depression (Chronic) Chest pain (Acute) Foot pain, right (Acute) Tendinitis of left rotator cuff (Acute) Macrocytosis (Acute 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 Leukopenia (Acute) Headache (Acute) Epigastric abdominal pain (Acute) Calcific tendinitis of left shoulder (Acute) Pulmonary mass (Acute) spiculated massPneumonia (Acute) Depression with suicidal ideation (Acute) Alcohol abuse (Chronic) Diarrhea (Acute) Epigastric pain (Acute) Dehydration (Acute) Hypokalemia (Acute) Discharge planning issues (Acute) Palliative care patient (Acute) Difficult intravenous access (Acute) Multiple IV attempts, usually requires ultrasound placement. PTSD (post-traumatic stress disorder) (Acute) Anemia (Chronic) Depression (Chronic) Foot pain, right (Acute) T12 compression fracture (Acute) Presacral mass (Chronic) Deviated nasal septum (Acute) Frequent falls (Chronic) Head injury (Acute) Ambulatory dysfunction (Chronic) Shoulder pain, right (Chronic) DVT prophylaxis (Acute) Suicidal ideation (Acute) Dry eye (Acute) Pruritus (Acute) Dystrophic nail (Acute) AMBER (acute kidney injury) (Acute) Iron deficiency anemia (Chronic) Alcohol abuse (Chronic) Hypomagnesemia (Chronic) Discharge planning issues (Acute) UTI (urinary tract infection) (Acute) Fall (Acute) Atelectasis of left lung (Chronic) Advance directive on file (Acute) Nodule of upper lobe of right lung (Acute ~09/13/18) 09/13/18 [facility]; 12mm SPICULATED -kb Cataract (Chronic 11/07/15) Hypertension (Chronic) high today; she will check readings at home Hyperlipidemia (Chronic) Back pain, chronic (Chronic) Depression (Chronic) Osteopenia (Chronic) Medical History? Adjustment disorder with depressed mood Alcoholic ketosis Anemia Cervical radicular pain neck pain and DJD [facility] 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) pls refrain from alcohol Chronic alcoholism she will not stop drinking unless she checks with me, so that we can help her avert withdrawal.? I do not think she is capable on her own--she would need placement to achieve required goal of 3 months of sobrietyChronic diarrhea Closed right humeral fracture Corneal ulcer, right (~08/23/18) 08/23/18; [facility]-kbFracture of humerus, left, closed Genital herpes simplex recurrent gential; suppressive Valtrex GERD (gastroesophageal reflux disease) GI bleed (12/20/16) Hypertension Hypokalemia Hypomagnesemia Incidental lung nodule, greater than or equal to 8mm 1cm, spiculated, stable for many years, recommend f/u in 6 mo Multiple [facility] NEGATIVE MP Osteoarthritis Palliative care patient (03/21/17) Pancreatitis, alcoholic, acute Peripheral edema Photophobia of right eye Pleural effusion on left 03/11/19 [facility] MCPresacral mass (~09/15/18) [facility], [facility] Tubular adenoma of colon (01/28/17) Urinary incontinence 01/24/13 [place]ral suspension [place] [facility] 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 Colonoscopy - [facility] (01/28/17) EGD - [facility] (12/20/16) History of bilateral ligation of fallopian tubes History of Surgical Procedure a. Bladder repair.Repair bladder injury, simple Social History/Home Situation: Leticia lives in a private home in [place], [place]. ? She has a caregiver who comes in three times per week for 2 hours each time to assist with laundry, minor house chores, and grocery shopping.? Patient is independent with ADLs using a front-wheeled walker. She receives meals on wheels. She no longer drives. Equipment Owned/DME: 3WW, FWW, SC, grab bars, emergency alert device Subjective: NT. See most recent GENERAL LOT ATTENDANT notes. Objective: General Observation:? NT. See most recent GENERAL LOT ATTENDANT notes. Mental Status: NT. See most recent GENERAL LOT ATTENDANT notes. Pain: NT. See most recent GENERAL LOT ATTENDANT notes. ROM: Right Upper Extremity: ? Shoulder Flexion allows up to 90 degrees. Shoulder abduction allows up to 70 degrees. Elbow flexion WFL. Wrist flexion WFL. Functional opening and closing of hand WFL. Left Upper Extremity: ? Shoulder Flexion allows up to 100 degrees. Shoulder abduction allows up to 90 degrees. Elbow flexion WFL. Wrist flexion WFL. Functional opening and closing of hand WFL. Right Lower Extremity: Hip flexion allows up to 20 degrees beyond 90 while seated at edge of bed. Hip abduction WFL. Knee flexion 30-90 degrees. Knee extension -30 degrees.? Ankle dorsiflexion WFL. Ankle plantarflexion WFL. Left Lower Extremity: Hip flexion allows up to 20 degrees beyond 90 while seated at edge of bed. Hip abduction WFL. Knee flexion 30-90 degrees. Knee extension - 30 degrees.? Ankle dorsiflexion WFL. Ankle plantarflexion WFL. Strength: Right Upper Extremity: Shoulder flexors 3-/5. Shoulder abductors 3-/5. Elbow flexors 4/5. Elbow extensors 4/5. Pharmacy Technician Instructor strong. Left Upper Extremity: Shoulder flexors 3-/5. Shoulder abductors 3-/5. Elbow flexors 4/5. Elbow extensors 4/5. Pharmacy Technician Instructor strong. Right Lower Extremity: Hip flexors 3-/5. Hip abductors 4-/5. Knee flexors 3-/5. Knee extensors 3-/5. Ankle dorsiflexors 4-/5. Ankle plantarflexors 4-/5. Left Lower Extremity: Hip flexors 3-/5. Hip abductors 4-/5. Knee flexors 3-/5. Knee extensors 3-/5. Ankle dorsiflexors 4-/5. Ankle plantarflexors 4-/5. Bed Mobility/Transfers: Supine to sit standby assist Sit to stand standby assist Stand to sit standby assist Bed to chair standby assist Gait: Patient exhibited gait for 5 feet requiring standby assist from PT.? Decreased violeta.? Decreased step length and height. No LOB. Balance: Static Sitting: Normal Dynamic Sitting: Normal Static Standing: Fair Dynamic Standing: Fair Assessment: Patient presents with clinical signs and symptoms consistent with current/admitting diagnoses that have resulted to mobility limitations, gait instability, generalized weakness, and impairment of motor control as demonstrated by the following impairment level findings: 1.? Decreased strength to B UE/LE major muscle groups 2.? Impaired static and dynamic standing balance Impairments are contributing to the following functional limitations: 2.? Inability to safely ambulate without assistive device 3.? Increase completion time for mobility ADL performance 4.? Increased fall risk Goals: Goals X1 week 1. Supine-Sit independent NOT MET 2. Sit-Supine independent NOT MET 3. Sit-Stand independent NOT MET 4. Stand-Sit independent NOT MET 5. Bed-Chair independent NOT MET 6. Chair-Bed independent NOT MET 7.? Independent gait on level surface with use of straight cane for at least 100 feet without report of pain nor dyspnea NOT MET 8.? Independent stair negotiation while holding onto bilateral rails for at least 5 steps without report of pain nor dyspnea NOT MET 9. Good static and dynamic standing balance/tolerance NOT MET DISCHARGE RECOMMENDATIONS: [] ? Home with no services [] [X] ? Home with services.? Home when medically cleared by hospitalist.? Patient will benefit from home health PT services in order to progress mobility level using least restrictive assistive ambulatory device, assess home safety, identify additional equipment needs, and establish a functional maintenance program that will increase ability of patient to remain at home. [] ? Home with outpatient PT [] [] ? SNF for continued rehabilitation [] [] ? [employer] [employer] [facility] [] [] ? SNF versus LTC based on ability to participate and progress [] TREATMENT CODE/TIME: AL Thank you for the opportunity to participate in the care of this patient. Tawana Cruz PT, DPT, CLT [facility] [place], [place]
== END 2022-07-05 16:29 | disposition home health service (06) | DRG 177 ==
LOC: ER 23:28 → MS 07-02 00:11
PROVIDERS: Internal Medicine; Admitting Provider Family Medicine; Emergency Provider Registered Nurse Emergency; PCP Family Medicine; Visit Provider Family Medicine
DX: U07.1 COVID-19 (principal); J12.82 Pneumonia due to coronavirus disease 2019; R09.02 Hypoxemia; F10.20 Alcohol dependence, uncomplicated; R11.2 Nausea with vomiting, unspecified; R19.7 Diarrhea, unspecified; K29.20 Alcoholic gastritis without bleeding; I10 Essential (primary) hypertension; Z66 Do not resuscitate; F32.A Depression, unspecified; F43.10 Post-traumatic stress disorder, unspecified; E78.5 Hyperlipidemia, unspecified; E04.1 Nontoxic single thyroid nodule; F41.9 Anxiety disorder, unspecified; N39.41 Urge incontinence; K70.31 Alcoholic cirrhosis of liver with ascites; D75.89 Other specified diseases of blood and blood-forming organs; R26.9 Unspecified abnormalities of gait and mobility; R29.6 Repeated falls; D50.9 Iron deficiency anemia, unspecified; M47.22 Other spondylosis with radiculopathy, cervical region; K21.9 Gastro-esophageal reflux disease without esophagitis; M54.31 Sciatica, right side
CPT/HCPCS: 49082; 36415; 71275; 80053; 80307; 84145; 87635; 93005; 94640; 96374; 97162; 97530; 99222; 99285; J1650; 71045; 80320; 81003; 81015; 83615; 83735; 84484; 85025; 85379; 85610; 85730; 86140; 87086; 93010; 94667; 94668; 99223; 99232; 99239; J0248; J1100; J2930; J3490; J7620; J7626

== ENCOUNTER 2022-07-16 12:43 | Emergency (ER) | payer MEDICARE, SELFPAY ==
--- NOTE | 2022-07-16 12:45 | RT.EKG_ITS ---
APPROVED REPORT Exam: Resting ECG Reason for Exam: SOB Patient Location: E HR:95 bpm ECG Measurements Heart Rate 95 AXIS ND 218 P 30 QRSd 93 QRS -26 QT 377 T -19 QTc 474 Conclusion Sinus rhythm...normal P axis, V-rate 60- 99 Prolonged ND interval...ND >215, V-rate 91-120 Probable anterior infarct, age indeterminate...Q >35mS, T neg, V2-V5 sinsu rhythm, left axis, t wave inversion anterior leads
[2022-07-16 12:50] VITALS: BP 140/75; PULSE 90; RESP 18; O2SAT 96
--- NOTE | 2022-07-16 13:28 | W.ED.GENAD ---
Discharge Plan Disposition Patient Disposition: Home Condition: Improving Discharge Details Clinical Impression: Cough Primary Care Provider: Lavelle Galindo ED Provider: Aydin Mauricio Home Meds and New Rx's Prescriptions: New albuterol sulfate 90 mcg/actuation HFA aerosol inhaler 2 puff inhalation Q6H PRN (Reason: shortness of breath or wheezing) Qty: 8.5 0RF No Action Xiidra 5 % dropperette 1 drp ophthalmic (eye) BID Rx Instructions: administer approximately 12 hours apart melatonin 3 mg capsule 3 mg PO .pm PRN (Reason: sleep) Qty: 90 4RF Rx Instructions: take in the middle of the night if you cannot get back to sleep ( total dose per 24 hrs - 9mg) budesonide [Pulmicort] 0.5 mg/2 mL suspension for nebulization 0.5 mg inhalation DAILY Qty: 60 5RF ipratropium-albuterol 0.5 mg-3 mg(2.5 mg base)/3 mL solution for nebulization 3 ml inhalation Q6H PRN lorazepam 1 mg tablet 1 mg PO QHS PRN (Reason: sleep) Qty: 20 0RF albuterol sulfate [Ventolin HFA] 90 mcg/actuation HFA aerosol inhaler 2 puff inhalation QID PRN (Reason: shortness of breath or wheezing) Qty: 8.5 1RF amlodipine 10 mg tablet 10 mg PO DAILY Qty: 90 3RF buspirone 5 mg tablet 5 mg PO BID Qty: 60 5RF folic acid 1 mg tablet 1 mg PO DAILY Qty: 90 3RF melatonin 3 mg capsule 6 mg PO HS Qty: 180 3RF metoprolol tartrate 50 mg tablet 50 mg PO DAILY Qty: 90 3RF mirtazapine 7.5 mg tablet 7.5 mg PO QHS Qty: 90 4RF ondansetron 4 mg tablet,disintegrating 4 mg PO Q8H PRN (Reason: nausea and vomiting) Qty: 20 2RF pantoprazole 40 mg tablet,delayed release (DR/EC) 40 mg PO DAILY Qty: 90 3RF sucralfate 1 gram tablet 1 g PO BID Qty: 60 11RF thiamine HCl (vitamin B1) 100 mg tablet 100 mg PO DAILY Qty: 90 3RF valacyclovir [Valtrex] 500 mg tablet 500 mg PO DAILY Qty: 90 3RF Rx Instructions: Take 500 mg BID for 3 days, then take daily fluticasone propionate 50 mcg/actuation spray,suspension 2 spray NS daily prn Qty: 16 5RF cyanocobalamin (vitamin B-12) [Vitamin B-12] 500 mcg tablet 1,000 mcg PO DAILY Qty: 180 3RF ferrous sulfate 325 mg (65 mg iron) tablet 325 mg PO BID Qty: 180 3RF Rx Instructions: do not take within 2 hours of antibiotics furosemide 20 mg tablet 20 mg PO BID@0830,1600 Qty: 180 3RF multivitamin [Multiple Vitamins] Tablet 1 tab PO DAILY Qty: 90 3RF quetiapine 25 mg tablet See Rx Instructions PO BID Qty: 60 5RF Rx Instructions: 0.5 tab PO twice a day; spironolactone [Aldactone] 50 mg tablet 50 mg PO BID Qty: 180 3RF venlafaxine 75 mg capsule,extended release 24hr 75 mg PO DAILY Qty: 90 3RF Hold Instructions: Home Medication placed on hold at Doctor's office carboxymethylcellulose sodium [Refresh Plus] 0.5 % Dropperette 1 drp OU Q4H WHILE AWAKE Qty: 30 0RF Label Comments: 08/15/19 pt states that she took her blister pack of meds but that she vomited them up pantoprazole 40 mg Tablet,Delayed Release (Dr/Ec) 40 mg PO BID@0730,2000 Qty: 60 0RF Discharge Instructions Instructions: Acute Cough (ED) Additional Instructions: Please follow-up with your primary care physician. Please return to the emergency department you have any worsening symptoms. Medical Decision Making 77-year-old female referred in by home health aide for evaluation of crackles bilaterally lung gatica, patient resting comfortably endorses mild productive cough over the past several days to weeks, recently recovered from COVID-19, normotensive nontachycardic afebrile not hypoxic. Speaking full sentences. Patient does not want to go through with laboratory evaluation and x-ray as she recently had a work-up. Offered patient breathing treatment and steroids which she is amenable to. Will reassess after medications. Consider viral respiratory illness versus persistent mild inflammation post COVID, patient does have a history of alcoholic cirrhosis consider mild pleural effusions however at this time no respiratory distress. Will treat symptomatically. Likely discharge home with close follow-up 14: 37 patient resting comfortably feeling much better after breathing treatment and steroids. Likely residual inflammatory state from recent COVID. Lower suspicion for CHF or pleural effusion. Sign Out No HPI General Date/Time Provider Initiated Documentation: 07/16/22 13:19. HPI Narrative: 77-year-old female referred in by her home health aide for evaluation of crackling lung sounds. Patient has recently recovered from COVID. Endorses cough slightly productive. Denies shortness of breath. Endorses generalized fatigue Related Data Home Medications Medication Instructions Recorded Confirmed carboxymethylcellulose sodium 0.5 1 drp OU Q4H WHILE AWAKE #30 ea 06/20/19 07/08/22 % eye drops in a dropperette (Refresh Plus) lifitegrast 5 % eye drops in a 1 drp ophthalmic (eye) BID 08/05/20 07/08/22 dropperette (Xiidra) ipratropium 0.5 mg-albuterol 3 mg 3 ml inhalation Q6H PRN 12/25/21 07/08/22 (2.5 mg base)/3 mL nebulization soln albuterol sulfate 90 mcg/actuation 2 puff inhalation QID PRN 02/08/22 07/08/22 aerosol inhaler (Ventolin HFA) shortness of breath or wheezing #8.5 grams amlodipine 10 mg tablet 10 mg PO DAILY #90 tabs 02/08/22 07/08/22 buspirone 5 mg tablet 5 mg PO BID #60 tabs 02/08/22 07/08/22 folic acid 1 mg tablet 1 mg PO DAILY #90 tabs 02/08/22 07/08/22 melatonin 3 mg capsule 6 mg PO HS #180 caps 02/08/22 07/08/22 metoprolol tartrate 50 mg tablet 50 mg PO DAILY #90 tabs 02/08/22 07/08/22 mirtazapine 7.5 mg tablet 7.5 mg PO QHS #90 tabs 02/08/22 07/08/22 ondansetron 4 mg disintegrating 4 mg PO Q8H PRN nausea and 02/08/22 07/08/22 tablet vomiting #20 tabs pantoprazole 40 mg tablet,delayed 40 mg PO DAILY #90 tabs 06/13/22 11/10/22 release sucralfate 1 gram tablet 1 g PO BID #60 tabs 02/08/22 07/08/22 thiamine HCl (vitamin B1) 100 mg 100 mg PO DAILY #90 tabs 02/08/22 07/08/22 tablet valacyclovir 500 mg tablet 500 mg PO DAILY #90 tabs 02/08/22 07/08/22 (Valtrex) fluticasone propionate 50 2 spray NS daily prn #16 grams 03/06/22 07/08/22 mcg/actuation nasal spray,suspension budesonide 0.5 mg/2 mL suspension 0.5 mg (2 mL) inhalation DAILY #60 05/06/22 07/08/22 for nebulization (Pulmicort) mL melatonin 3 mg capsule 3 mg PO .pm PRN sleep #90 caps 05/12/22 07/08/22 pantoprazole 40 mg tablet,delayed 40 mg PO BID@0730,2000 #60 tabs 05/21/22 07/08/22 release lorazepam 1 mg tablet 1 mg PO QHS PRN sleep #20 tabs 07/08/22 07/08/22 cyanocobalamin (vitamin B-12) 500 1,000 mcg PO DAILY #180 tabs 07/10/22 mcg tablet (Vitamin B-12) ferrous sulfate 325 mg (65 mg 325 mg PO BID #180 tabs 07/10/22 iron) tablet furosemide 20 mg tablet 20 mg PO BID@0830,1600 #180 tabs 07/10/22 multivitamin (Multiple Vitamins 1 tab PO DAILY #90 tabs 07/10/22 tablet) quetiapine 25 mg tablet See Rx Instructions PO BID #60 tabs 07/10/22 spironolactone 50 mg tablet 50 mg PO BID #180 tabs 07/10/22 (Aldactone) venlafaxine 75 mg capsule,extended 75 mg PO DAILY #90 caps 07/10/22 release 24 hr albuterol sulfate 90 mcg/actuation 2 puff inhalation Q6H PRN 07/16/22 aerosol inhaler shortness of breath or wheezing #8.5 grams Previous Rx's Medication Instructions Recorded carboxymethylcellulose sodium 0.5 1 drp OU Q4H WHILE AWAKE #30 ea 06/20/ % eye drops in a dropperette (Refresh Plus) albuterol sulfate 90 mcg/actuation 2 puff inhalation QID PRN 02/08/22 aerosol inhaler (Ventolin HFA) shortness of breath or wheezing #8.5 grams amlodipine 10 mg tablet 10 mg PO DAILY #90 tabs 02/08/22 buspirone 5 mg tablet 5 mg PO BID #60 tabs 02/08/22 folic acid 1 mg tablet 1 mg PO DAILY #90 tabs 02/08/22 melatonin 3 mg capsule 6 mg PO HS #180 caps 02/08/22 metoprolol tartrate 50 mg tablet 50 mg PO DAILY #90 tabs 02/08/22 mirtazapine 7.5 mg tablet 7.5 mg PO QHS #90 tabs 02/08/22 ondansetron 4 mg disintegrating 4 mg PO Q8H PRN nausea and 02/08/22 tablet vomiting #20 tabs pantoprazole 40 mg tablet,delayed 40 mg PO DAILY #90 tabs 02/08/22 release sucralfate 1 gram tablet 1 g PO BID #60 tabs 02/08/22 thiamine HCl (vitamin B1) 100 mg 100 mg PO DAILY #90 tabs 02/08/22 tablet valacyclovir 500 mg tablet 500 mg PO DAILY #90 tabs 02/08/22 (Valtrex) fluticasone propionate 50 2 spray NS daily prn #16 grams 03/06/22 mcg/actuation nasal spray,suspension budesonide 0.5 mg/2 mL suspension 0.5 mg (2 mL) inhalation DAILY #60 05/06/22 for nebulization (Pulmicort) mL melatonin 3 mg capsule 3 mg PO .pm PRN sleep #90 caps 05/12/22 pantoprazole 40 mg tablet,delayed 40 mg PO BID@0730,2000 #60 tabs 05/21/22 release lorazepam 1 mg tablet 1 mg PO QHS PRN sleep #20 tabs 07/08/22 cyanocobalamin (vitamin B-12) 500 1,000 mcg PO DAILY #180 tabs 07/10/22 mcg tablet (Vitamin B-12) ferrous sulfate 325 mg (65 mg 325 mg PO BID #180 tabs 07/10/22 iron) tablet furosemide 20 mg tablet 20 mg PO BID@0830,1600 #180 tabs 07/10/22 multivitamin (Multiple Vitamins 1 tab PO DAILY #90 tabs 07/10/22 tablet) quetiapine 25 mg tablet See Rx Instructions PO BID #60 tabs 07/10/22 spironolactone 50 mg tablet 50 mg PO BID #180 tabs 07/10/22 (Aldactone) venlafaxine 75 mg capsule,extended 75 mg PO DAILY #90 caps 07/10/22 release 24 hr albuterol sulfate 90 mcg/actuation 2 puff inhalation Q6H PRN 07/16/22 aerosol inhaler shortness of breath or wheezing #8.5 grams Allergies Allergy/AdvReac Type Severity Reaction Status Date / Time Penicillins Allergy Mild Rash Verified 07/01/22 19:26 ramipril Allergy Unknown ITCHING Verified 07/01/22 19:26 meperidine [From Demerol] AdvReac Severe Nausea Verified 07/01/22 19:26 bupropion AdvReac Mild GI upset Verified 07/01/22 19:26 AMBER Inhibitors AdvReac Unknown COUGH Verified 07/01/22 19:26 alendronate sodium AdvReac Unknown GI Distress Verified 07/01/22 19:26 clarithromycin AdvReac Unknown intolerant Verified 07/01/22 19:26 paroxetine AdvReac Unknown Diarrhea Verified 07/01/22 19:26 General Stated Complaint: RespSymp JORDAN: 3 Review of Systems Narrative: Review of Systems Constitutional: Fatigue Eyes: negative ENT: negative Cardiovascular: negative Respiratory: negative Gastrointestinal: negative : negative Musculoskeletal: negative Skin: negative Neurologic: negative Psych: negative PFSH All Active Problems (Updated 07/16/22 @ 14:38 by Aydin Mauricio MD) Cough (Acute) Thyroid nodule (Acute) Pneumonia due to COVID-19 virus (Acute) Anxiety (Chronic) Adverse effect of metronidazole (Acute) Medication monitoring encounter (Acute) Advance care planning (Acute) Cirrhosis of liver with ascites (Acute) Animal bite of right hand with infection (Acute) Umbilical hernia (Acute) 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 ascites (Acute) Hyperbilirubinemia (Acute) Shortness of breath (Acute) Elevated blood pressure reading without diagnosis of hypertension (Acute) Left arm pain (Acute) Ambulatory dysfunction (Acute) Incontinence (Acute) Urge incontinence (Acute) Anorexia (Acute) Headache (Acute) Onychomycosis (Acute) Depression (Chronic) Chest pain (Acute) Foot pain, right (Acute) Tendinitis of left rotator cuff (Acute) Macrocytosis (Acute 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 Leukopenia (Acute) Headache (Acute) Epigastric abdominal pain (Acute) Calcific tendinitis of left shoulder (Acute) Pulmonary mass (Acute) spiculated mass Pneumonia (Acute) Depression with suicidal ideation (Acute) Alcohol abuse (Chronic) Diarrhea (Acute) Epigastric pain (Acute) Dehydration (Acute) Hypokalemia (Acute) Discharge planning issues (Acute) Palliative care patient (Acute) Difficult intravenous access (Acute) Multiple IV attempts, usually requires ultrasound placement. PTSD (post-traumatic stress disorder) (Acute) Anemia (Chronic) Depression (Chronic) Foot pain, right (Acute) T12 compression fracture (Acute) Presacral mass (Chronic) Deviated nasal septum (Acute) Frequent falls (Chronic) Head injury (Acute) Ambulatory dysfunction (Chronic) Shoulder pain, right (Chronic) DVT prophylaxis (Acute) Suicidal ideation (Acute) Dry eye (Acute) Pruritus (Acute) Dystrophic nail (Acute) AMBER (acute kidney injury) (Acute) Iron deficiency anemia (Chronic) Alcohol abuse (Chronic) Hypomagnesemia (Chronic) Discharge planning issues (Acute) UTI (urinary tract infection) (Acute) Fall (Acute) Atelectasis of left lung (Chronic) Advance directive on file (Acute) Nodule of upper lobe of right lung (Acute ~09/13/18) 09/13/18 [facility]; 12mm SPICULATED -kb Cataract (Chronic 11/07/15) Hypertension (Chronic) high today; she will check readings at home Hyperlipidemia (Chronic) Back pain, chronic (Chronic) Depression (Chronic) Osteopenia (Chronic) Medical History Adjustment disorder with depressed mood Alcoholic ketosis Anemia Cervical radicular pain neck pain and [facility] 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) pls refrain from alcohol Chronic alcoholism she will not stop drinking unless she checks with me, so that we can help her avert withdrawal I do not think she is capable on her own--she would need placement to achieve required goal of 3 months of sobriety Chronic diarrhea Closed right humeral fracture Corneal ulcer, right (~08/23/18) 08/23/18; [facility] Fracture of humerus, left, closed Genital herpes simplex recurrent gential; suppressive Valtrex GERD (gastroesophageal reflux disease) GI bleed (12/20/16) Hypertension Hypokalemia Hypomagnesemia Incidental lung nodule, greater than or equal to 8mm 1cm, spiculated, stable for many years, recommend f/u in 6 mo Multiple rib fractures 03/11/19 [facility] Non-cardiac chest pain (09/21/16) [facility] 09/21/16 NEGATIVE MP Osteoarthritis Palliative care patient (03/21/17) Pancreatitis, alcoholic, acute Peripheral edema Photophobia of right eye Pleural effusion on left 03/11/19 [facility] Presacral mass (~09/15/18) 09/15/18 [facility] Sciatica right, epidural injuections [facility] Tubular adenoma of colon (01/28/17) Urinary incontinence 01/24/13 urethral suspension and sling at [facility] [place] (bladder suspension 1991) 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 Bladder repair. Repair bladder injury, simple Family History Mother No problems noted. Father , DROWNED at age 50. No problems noted. Sister Personal history of malignant neoplasm MELANOMA Sister No problems noted. Grandfather Personal history of malignant neoplasm STOMACH Grandfather Personal history of malignant neoplasm PROSTATE Grandmother Heart disease [place] Acute ill-defined cerebrovascular disease Grandmother Personal history of malignant neoplasm UTERINE Aunt , [place] Heart disease NV Aunt , [place] Heart disease Brother No problems noted. Social History Smoking/Tobacco Use Status: Former Tobacco Use Quit Date: 08/05/20 Smoking risk assessment performed?: Yes Alcohol Intake: current Alcohol Intake frequency: 3 or more drinks per day Alcohol type: hard liquor Drug use: Never Substance use type: does not use Current gender identity: female Do you feel safe at home: Yes Do you feel safe in your relationship?: Yes Exam Narrative Exam Narrative: Physical Examination General: alert, awake, cooperative, resting comfortably, no acute distress HEENT: normocephalic, atraumatic; PERRL, EOM intact, conjunctiva normal; no nasal discharge; moist mucous membranes, oral and pharyngeal mucosa normal, tolerating secretions Neck: supple, trachea midline; full ROM Chest: normal to inspection Respiratory: normal respiratory effort, speaking in full sentences, clear to auscultation, no wheezing, rales or rhonchi Cardiac: regular rate, regular rhythm, S1S2 intact, no murmurs rubs or gallops GI: abdomen soft, non-tender, non-distended; no palpable mass or hepatosplenomegaly Skin: no lesions, rashes or trauma appreciated Neuro: AAOx3, normal speech, moving all extremities Extremities:No peripheral edema Psych: Appropriate mood and affect Course Vital Signs Vital signs: Vital Signs Pulse 90 07/16/22 12:50 Respiratory Rate 18 07/16/22 12:50 Blood Pressure 140/75 07/16/22 12:50 Pulse Oximetry 96 07/16/22 12:50 Pulse 90 07/16/22 12:50 Respiratory Rate 18 07/16/22 12:50 Respiratory Effort 07/16/22 12:56 Respiratory Depth Normal 07/16/22 12:56 Blood Pressure 140/75 07/16/22 12:50 Blood Pressure Position Supine 07/16/22 12:50 Pulse Oximetry 96 07/16/22 12:50 Oxygen Delivery Method Room Air 07/16/22 12:50 Oxygen Flow Rate 0 07/16/22 12:50 PAWSS Have you Been Recently Intoxicated or Drunk Within the Last 30 days?: No Have you Ever Experienced Previous Episodes of Alcohol Withdrawal?: No Have you ever Experienced Withdrawal Seizures?: No Have you ever Experienced Delirium Tremens(DT)s?: No Have you ever undergone Alcohol Rehabilitation Treatment (i.e, inpt ot outpatient treatment programs)?: Yes Have you ever Experienced Blackouts?: No Have you ever Combined Alcohol with other Downers within the last 90 days?: No Have you ever Combined Alcohol with any other Substance of Abuse during the last 90 days?: No Evidence of Increased Autonomic Activity (i.e. HR>120, tremor, sweating, agitation, nausea)?: No Result: 1
[2022-07-16 13:40] VITALS: PULSE 94; RESP 18; O2SAT 94
[2022-07-16] MEDS: Dexamethasone 10 MG/ML VIAL IM (13:40)
[2022-07-16] MEDS: Albuterol/Ipratropium 3 ML UPD VIAL UPD (13:40)
[2022-07-16 14:48] VITALS: PULSE 98; RESP 18; TEMP 36.8; O2SAT 96
== END 2022-07-16 14:57 | disposition home or self-care (01) ==
PROVIDERS: Emergency Provider Emergency Medicine; PCP Family Medicine
DX: R05.1 Acute cough (principal); R06.02 Shortness of breath; Z86.16 Personal history of COVID-19
CPT/HCPCS: 93005; 94640; 96372; 99284; 93010; 99283; J1100; J7620

== ENCOUNTER → 2022-07-20 13:06 | Outpatient (BNVA) | payer MEDICARE, SELFPAY | PROVIDERS: PCP Family Medicine; Referring Provider Family Medicine; Visit Provider Urology | DX: R35.0 Frequency of micturition (principal); N39.41 Urge incontinence | CPT/HCPCS: 51701; 99214 ==

== ENCOUNTER 2022-07-20 16:45 | Outpatient (REF) | payer MEDICARE, SELFPAY | END 2022-07-20 16:46 | disposition home or self-care (01) | LOC: LBN 16:45 | PROVIDERS: PCP Family Medicine; Visit Provider Urology | DX: N30.00 Acute cystitis without hematuria (principal); N39.41 Urge incontinence | CPT/HCPCS: 87077; 87086; 87186 ==

== ENCOUNTER 2022-07-26 11:08 | Emergency (ER) | payer MEDICARE, SELFPAY ==
[2022-07-26 11:11] VITALS: BP 126/61; PULSE 95; RESP 18; TEMP 36.8; O2SAT 95
--- NOTE | 2022-07-26 12:02 | ED.GENADUL_ITS ---
Discharge Plan Disposition Patient Disposition: Home Condition: Good Discharge Details Clinical Impression: Abdominal ascites Primary Care Provider: Lavelle Galindo ED Provider: Paul Chavira Home Meds and New Rx's Prescriptions: No Action Xiidra 5 % dropperette 1 drp ophthalmic (eye) BID Rx Instructions: administer approximately 12 hours apart melatonin 3 mg capsule 3 mg PO .pm PRN (Reason: sleep) Qty: 90 4RF Rx Instructions: take in the middle of the night if you cannot get back to sleep ( total dose per 24 hrs - 9mg) budesonide [Pulmicort] 0.5 mg/2 mL suspension for nebulization 0.5 mg inhalation DAILY Qty: 60 5RF ipratropium-albuterol 0.5 mg-3 mg(2.5 mg base)/3 mL solution for nebulization 3 ml inhalation Q6H PRN Myrbetriq 50 mg tablet extended release 24 hr 50 mg PO DAILY Qty: 30 12RF lorazepam 1 mg tablet 1 mg PO QHS PRN (Reason: sleep) Qty: 20 0RF albuterol sulfate [Ventolin HFA] 90 mcg/actuation HFA aerosol inhaler 2 puff inhalation QID PRN (Reason: shortness of breath or wheezing) Qty: 8.5 1RF amlodipine 10 mg tablet 10 mg PO DAILY Qty: 90 3RF buspirone 5 mg tablet 5 mg PO BID Qty: 60 5RF folic acid 1 mg tablet 1 mg PO DAILY Qty: 90 3RF melatonin 3 mg capsule 6 mg PO HS Qty: 180 3RF metoprolol tartrate 50 mg tablet 50 mg PO DAILY Qty: 90 3RF mirtazapine 7.5 mg tablet 7.5 mg PO QHS Qty: 90 4RF ondansetron 4 mg tablet,disintegrating 4 mg PO Q8H PRN (Reason: nausea and vomiting) Qty: 20 2RF pantoprazole 40 mg tablet,delayed release (DR/EC) 40 mg PO DAILY Qty: 90 3RF sucralfate 1 gram tablet 1 g PO BID Qty: 60 11RF thiamine HCl (vitamin B1) 100 mg tablet 100 mg PO DAILY Qty: 90 3RF valacyclovir [Valtrex] 500 mg tablet 500 mg PO DAILY Qty: 90 3RF Rx Instructions: Take 500 mg BID for 3 days, then take daily fluticasone propionate 50 mcg/actuation spray,suspension 2 spray NS daily prn Qty: 16 5RF cyanocobalamin (vitamin B-12) [Vitamin B-12] 500 mcg tablet 1,000 mcg PO DAILY Qty: 180 3RF ferrous sulfate 325 mg (65 mg iron) tablet 325 mg PO BID Qty: 180 3RF Rx Instructions: do not take within 2 hours of antibiotics furosemide 20 mg tablet 20 mg PO BID@0830,1600 Qty: 180 3RF multivitamin [Multiple Vitamins] Tablet 1 tab PO DAILY Qty: 90 3RF quetiapine 25 mg tablet See Rx Instructions PO BID Qty: 60 5RF Rx Instructions: 0.5 tab PO twice a day; spironolactone [Aldactone] 50 mg tablet 50 mg PO BID Qty: 180 3RF venlafaxine 75 mg capsule,extended release 24hr 75 mg PO DAILY Qty: 90 3RF Hold Instructions: Home Medication placed on hold at Doctor's office carboxymethylcellulose sodium [Refresh Plus] 0.5 % Dropperette 1 drp OU Q4H WHILE AWAKE Qty: 30 0RF Label Comments: 08/15/19 pt states that she took her blister pack of meds but that she vomited them up pantoprazole 40 mg Tablet,Delayed Release (Dr/Ec) 40 mg PO BID@07,1999 Qty: 60 0RF albuterol sulfate 90 mcg/actuation HFA aerosol inhaler 2 puff inhalation Q6H PRN (Reason: shortness of breath or wheezing) Qty: 8.5 0RF Discharge Instructions Instructions: Ascites (ED), Paracentesis (DC) Additional Instructions: Paracentesis was performed. The analysis of your fluid does not show evidence of infection. Please follow-up closely with your primary care provider for reassessment. If you notice any worsening of your symptoms, or any new symptoms such as vomiting, diarrhea, fever, chills, shortness of breath, chest pain, numbness, weakness, or fainting , please return immediately to the emergency department for reevaluation. Please follow up with your primary care provider as soon as possible for reassessment and reevaluation. As always, it was a pleasure participating in your medical care today. Referrals: Lavelle Galindo MD [Primary Care Provider] - Medical Decision Making 77-year-old female with a past medical history of chronic cirrhosis of the liver, asthma/reactive airway disease, alcoholic cirrhosis, GERD, previous GI bleeds, palliative care patient in the past, who presents today for evaluation of abdominal pain and bloating for the last few days. Patient's ascites has been worsening as of late. She admits to pressure in her abdomen, and continued achiness and pain. She denies any fever or chills. No other complaints at this time. She is requesting paracentesis. She arrives here by EMS. Vitals are stable. Exam demonstrates a mildly distended abdomen with wavelike fluid motion. Bedside ultrasound shows a large collection of fluid on the left with no floating bowel. Patient symptoms consistent with ascites and a subsequent pain secondary to this. Symptoms inconsistent with spontaneous bacterial peritonitis. Patient elected for procedure, and consented. She is on no blood thinners. Paracentesis was performed and 2 L of ascites fluid were removed. Patient tolerated this well. We will send the fluid for testing to confirm no evidence of clinically unlikely spontaneous bacterial peritonitis. Patient feels well and is comfortable with discharge. Ascites fluid analysis is returned and is inconsistent with spontaneous pectoral peritonitis, and negative for evidence of infection. Patient stable for discharge. Patient feels much better and would like to go home. I have extensi vely reviewed the treatment plan and discharge instructions with the patient. I have addressed all patient concerns at this time. The patient was made aware of what symptoms to monitor for that would warrant a return to the emergency department. Discussed the plan with the patient, they demonstrate verbal understanding and agreement with our assessment and plan at this time. The documentation in this chart was dictated using [employer] dictation software. Please excuse any dictation errors. Sign Out No HPI General Date/Time Provider Initiated Documentation: 07/26/22 11:12 . HPI Narrative: 77-year-old female with a past medical history of chronic cirrhosis of the liver, asthma/reactive airway disease, alcoholic cirrhosis, GERD, previous GI bleeds, palliative care patient in the past, who presents today for evaluation of abdominal pain and bloating for the last few days. Patient's ascites has been worsening as of late. She admits to pressure in her abdomen, and continued achiness and pain. She denies any fever or chills. No other complaints at this time. She is requesting paracentesis. She arrives here by EMS. Vitals are stable. Related Data Home Medications Medication Instructions Recorded Confirmed carboxymethylcellulose sodium 0.5 1 drp OU Q4H WHILE AWAKE #30 ea 06/20/19 07/08/22 % eye drops in a dropperette (Refresh Plus) lifitegrast 5 % eye drops in a 1 drp ophthalmic (eye) BID 08/05/20 07/08/22 dropperette (Xiidra) ipratropium 0.5 mg-albuterol 3 mg 3 ml inhalation Q6H PRN 12/25/21 07/08/22 (2.5 mg base)/3 mL nebulization soln albuterol sulfate 90 mcg/actuation 2 puff inhalation QID PRN 02/08/22 07/08/22 aerosol inhaler (Ventolin HFA) shortness of breath or wheezing #8.5 grams amlodipine 10 mg tablet 10 mg PO DAILY #90 tabs 02/08/22 07/08/22 buspirone 5 mg tablet 5 mg PO BID #60 tabs 02/08/22 07/08/22 folic acid 1 mg tablet 1 mg PO DAILY #90 tabs 02/08/22 07/08/22 melatonin 3 mg capsule 6 mg PO HS #180 caps 02/08/22 07/08/22 metoprolol tartrate 50 mg tablet 50 mg PO DAILY #90 tabs 02/08/22 07/08/22 mirtazapine 7.5 mg tablet 7.5 mg PO QHS #90 tabs 02/08/22 07/08/22 ondansetron 4 mg disintegrating 4 mg PO Q8H PRN nausea and 02/08/22 07/08/22 tablet vomiting #20 tabs pantoprazole 40 mg tablet,delayed 40 mg PO DAILY #90 tabs 02/08/22 07/08/22 release sucralfate 1 gram tablet 1 g PO BID #60 tabs 02/08/22 07/08/22 thiamine HCl (vitamin B1) 100 mg 100 mg PO DAILY #90 tabs 02/08/22 07/08/22 tablet valacyclovir 500 mg tablet 500 mg PO DAILY #90 tabs 02/08/22 07/08/22 (Valtrex) fluticasone propionate 50 2 spray NS daily prn #16 grams 03/06/22 07/08/22 mcg/actuation nasal spray,suspension budesonide 0.5 mg/2 mL suspension 0.5 mg (2 mL) inhalation DAILY #60 05/06/22 07/08/22 for nebulization (Pulmicort) mL melatonin 3 mg capsule 3 mg PO .pm PRN sleep #90 caps 05/12/22 07/08/22 pantoprazole 40 mg tablet,delayed 40 mg PO BID@0730,2000 #60 tabs 05/21/22 07/08/22 release lorazepam 1 mg tablet 1 mg PO QHS PRN sleep #20 tabs 07/08/22 07/08/22 cyanocobalamin (vitamin B-12) 500 1,000 mcg PO DAILY #180 tabs 07/10/22 mcg tablet (Vitamin B-12) ferrous sulfate 325 mg (65 mg 325 mg PO BID #180 tabs 07/10/22 iron) tablet furosemide 20 mg tablet 20 mg PO BID@0830,1600 #180 tabs 07/10/22 multivitamin (Multiple Vitamins 1 tab PO DAILY #90 tabs 07/10/22 tablet) quetiapine 25 mg tablet See Rx Instructions PO BID #60 tabs 07/10/22 spironolactone 50 mg tablet 50 mg PO BID #180 tabs 07/10/22 (Aldactone) venlafaxine 75 mg capsule,extended 75 mg PO DAILY #90 caps 07/10/22 release 24 hr albuterol sulfate 90 mcg/actuation 2 puff inhalation Q6H PRN 07/16/22 aerosol inhaler shortness of breath or wheezing #8.5 grams mirabegron 50 mg tablet,extended 50 mg PO DAILY #30 tabs 07/20/22 07/20/22 release 24 hr (Myrbetriq) Previous Rx's Medication Instructions Recorded carboxymethylcellulose sodium 0.5 1 drp OU Q4H WHILE AWAKE #30 ea 06/20/ % eye drops in a dropperette (Refresh Plus) albuterol sulfate 90 mcg/actuation 2 puff inhalation QID PRN 02/08/22 aerosol inhaler (Ventolin HFA) shortness of breath or wheezing #8.5 grams amlodipine 10 mg tablet 10 mg PO DAILY #90 tabs 02/08/22 buspirone 5 mg tablet 5 mg PO BID #60 tabs 02/08/22 folic acid 1 mg tablet 1 mg PO DAILY #90 tabs 02/08/22 melatonin 3 mg capsule 6 mg PO HS #180 caps 02/08/22 metoprolol tartrate 50 mg tablet 50 mg PO DAILY #90 tabs 02/08/22 mirtazapine 7.5 mg tablet 7.5 mg PO QHS #90 tabs 02/08/22 ondansetron 4 mg disintegrating 4 mg PO Q8H PRN nausea and 02/08/22 tablet vomiting #20 tabs pantoprazole 40 mg tablet,delayed 40 mg PO DAILY #90 tabs 02/08/22 release sucralfate 1 gram tablet 1 g PO BID #60 tabs 02/08/22 thiamine HCl (vitamin B1) 100 mg 100 mg PO DAILY #90 tabs 02/08/22 tablet valacyclovir 500 mg tablet 500 mg PO DAILY #90 tabs 02/08/22 (Valtrex) fluticasone propionate 50 2 spray NS daily prn #16 grams 03/06/22 mcg/actuation nasal spray,suspension budesonide 0.5 mg/2 mL suspension 0.5 mg (2 mL) inhalation DAILY #60 05/06/22 for nebulization (Pulmicort) mL melatonin 3 mg capsule 3 mg PO .pm PRN sleep #90 caps 05/12/22 pantoprazole 40 mg tablet,delayed 40 mg PO BID@0730,2000 #60 tabs 05/21/22 release lorazepam 1 mg tablet 1 mg PO QHS PRN sleep #20 tabs 07/08/22 cyanocobalamin (vitamin B-12) 500 1,000 mcg PO DAILY #180 tabs 07/10/22 mcg tablet (Vitamin B-12) ferrous sulfate 325 mg (65 mg 325 mg PO BID #180 tabs 07/10/22 iron) tablet furosemide 20 mg tablet 20 mg PO BID@0830,1600 #180 tabs 07/10/22 multivitamin (Multiple Vitamins 1 tab PO DAILY #90 tabs 07/10/22 tablet) quetiapine 25 mg tablet See Rx Instructions PO BID #60 tabs 07/10/22 spironolactone 50 mg tablet 50 mg PO BID #180 tabs 07/10/22 (Aldactone) venlafaxine 75 mg capsule,extended 75 mg PO DAILY #90 caps 07/10/22 release 24 hr albuterol sulfate 90 mcg/actuation 2 puff inhalation Q6H PRN 07/16/22 aerosol inhaler shortness of breath or wheezing #8.5 grams mirabegron 50 mg tablet,extended 50 mg PO DAILY #30 tabs 07/20/22 release 24 hr (Myrbetriq) Allergies Allergy/AdvReac Type Severity Reaction Status Date / Time Penicillins Allergy Mild Rash Verified 07/01/22 19:26 ramipril Allergy Unknown ITCHING Verified 07/01/22 19:26 meperidine [From Demerol] AdvReac Severe Nausea Verified 07/01/22 19:26 bupropion AdvReac Mild GI upset Verified 07/01/22 19:26 AMBER Inhibitors AdvReac Unknown COUGH Verified 07/01/22 19:26 alendronate sodium AdvReac Unknown GI Distress Verified 07/01/22 19:26 clarithromycin AdvReac Unknown intolerant Verified 07/01/22 19:26 paroxetine AdvReac Unknown Diarrhea Verified 07/01/22 19:26 General Stated Complaint: Abd Prob JORDAN: 3 Review of Systems All systems reviewed & are unremarkable except as noted in HPI and below PFSH All Active Problems Abdominal ascites (Acute) Mixed stress and urge urinary incontinence (Acute) Cough (Acute) Thyroid nodule (Acute) Pneumonia due to COVID-19 virus (Acute) Anxiety (Chronic) Adverse effect of metronidazole (Acute) Medication monitoring encounter (Acute) Advance care planning (Acute) Cirrhosis of liver with ascites (Acute) Animal bite of right hand with infection (Acute) Umbilical hernia (Acute) 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 ascites (Acute) Hyperbilirubinemia (Acute) Shortness of breath (Acute) Elevated blood pressure reading without diagnosis of hypertension (Acute) Left arm pain (Acute) Ambulatory dysfunction (Acute) Incontinence (Acute) Urge incontinence (Acute) Anorexia (Acute) Headache (Acute) Onychomycosis (Acute) Depression (Chronic) Chest pain (Acute) Foot pain, right (Acute) Tendinitis of left rotator cuff (Acute) Macrocytosis (Acute 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 Leukopenia (Acute) Headache (Acute) Epigastric abdominal pain (Acute) Calcific tendinitis of left shoulder (Acute) Pulmonary mass (Acute) spiculated mass Pneumonia (Acute) Depression with suicidal ideation (Acute) Alcohol abuse (Chronic) Diarrhea (Acute) Epigastric pain (Acute) Dehydration (Acute) Hypokalemia (Acute) Discharge planning issues (Acute) Palliative care patient (Acute) Difficult intravenous access (Acute) Multiple IV attempts, usually requires ultrasound placement. PTSD (post-traumatic stress disorder) (Acute) Anemia (Chronic) Depression (Chronic) Foot pain, right (Acute) T12 compression fracture (Acute) Presacral mass (Chronic) Deviated nasal septum (Acute) Frequent falls (Chronic) Head injury (Acute) Ambulatory dysfunction (Chronic) Shoulder pain, right (Chronic) DVT prophylaxis (Acute) Suicidal ideation (Acute) Dry eye (Acute) Pruritus (Acute) Dystrophic nail (Acute) AMBER (acute kidney injury) (Acute) Iron deficiency anemia (Chronic) Alcohol abuse (Chronic) Hypomagnesemia (Chronic) Discharge planning issues (Acute) UTI (urinary tract infection) (Acute) Fall (Acute) Atelectasis of left lung (Chronic) Advance directive on file (Acute) Nodule of upper lobe of right lung (Acute ~09/13/18) 09/13/18 [facility]; 12mm SPICULATED -kb Cataract (Chronic 11/07/15) Hypertension (Chronic) high today; she will check readings at home Hyperlipidemia (Chronic) Back pain, chronic (Chronic) Depression (Chronic) Osteopenia (Chronic) Medical History Adjustment disorder with depressed mood Alcoholic ketosis Anemia Cervical radicular pain neck pain and DJD [facility] 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) pls refrain from alcohol Chronic alcoholism she will not stop drinking unless she checks with me, so that we can help her avert withdrawal I do not think she is capable on her own--she would need placement to achieve required goal of 3 months of sobriety Chronic diarrhea Closed right humeral fracture Corneal ulcer, right (~08/23/18) 08/23/18; [facility] Fracture of humerus, left, closed Genital herpes simplex recurrent gential; suppressive Valtrex GERD (gastroesophageal reflux disease) GI bleed (12/20/16) Hypertension Hypokalemia Hypomagnesemia Incidental lung nodule, greater than or equal to 8mm 1cm, spiculated, stable for many years, recommend f/u in 6 mo Multiple rib fractures 03/11/19 [facility] Non-cardiac chest pain (09/21/16) [facility] [facility] 09/21/16 NEGATIVE MP Osteoarthritis Palliative care patient (03/21/17) Pancreatitis, alcoholic, acute Peripheral edema Photophobia of right eye Pleural effusion on left 03/11/19 [facility] Presacral mass (~09/15/18) 09/15/18 [facility] Sciatica right, epidural injuections [facility] Tubular adenoma of colon (01/28/17) Urinary incontinence 01/24/13 urethral suspension and sling at [facility] [place] [facility] (bladder suspension 1991) 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 Bladder repair. Repair bladder injury, simple Family History Mother No problems noted. Father , DROWNED at age 50. No problems noted. Sister Personal history of malignant neoplasm MELANOMA Sister No problems noted. Grandfather Personal history of malignant neoplasm STOMACH Grandfather Personal history of malignant neoplasm PROSTATE Grandmother Heart disease RI Acute ill-defined cerebrovascular disease Grandmother Personal history of malignant neoplasm UTERINE Aunt , RI Heart disease RI Aunt , RI Heart disease Brother No problems noted. Social History Smoking/Tobacco Use Status: Former Tobacco Use Quit Date: 08/05/20 Smoking risk assessment performed?: Yes Alcohol Intake: current Alcohol Intake frequency: 3 or more drinks per day Alcohol type: hard liquor Drug use: Never Substance use type: does not use Current gender identity: female Do you feel safe at home: Yes Do you feel safe in your relationship?: Yes Exam Narrative Exam Narrative: 1.Const: Well-nourished, Well-developed, appearing stated age 2.Eyes: PERRL, no conjunctival injection, and symmetrical lids. 3.ENT: Atraumatic external nose and ears. Moist MM. Neck: Symmetric, trachea midline, No thyromegaly. 4.CVS: +S1/S2, No murmurs or gallops. Peripheral pulses 2+ and equal in all extremities. Brisk capillary refill in all extremities. 5.RESP: Unlabored respiratory effort. Clear to auscultation bilaterally. No wheezes rales or rhonchi 6.GI: Soft, distended, notable ascites wave like fluid pattern. Bedside ultrasound shows notable ascites with a large area of fluid collection, and no floating bowel on the left lateral abdominal wall. 7.MSK: Normocephalic/Atraumatic, Extremities w/o deformity or ttp No cyanosis or clubbing, Normal movement of all extremities 8.Skin: Warm, Dry. No rashes or lesions. 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 Sensation grossly intact, no focal neurologic deficits. 10.Psych: (AAO) x3. Appropriate mood and affect Course Vital Signs Vital signs: Vital Signs Temperature 36.8 C 07/26/22 11:11 Pulse 95 H 07/26/22 11:11 Respiratory Rate 18 07/26/22 11:11 Blood Pressure 126/61 07/26/22 11:11 Pulse Oximetry 95 07/26/22 11:11 Temperature 36.8 C 07/26/22 11:11 Pulse 95 H 07/26/22 11:11 Respiratory Rate 18 07/26/22 11:11 Respiratory Effort 07/26/22 11:16 Blood Pressure 126/61 07/26/22 11:11 Blood Pressure Position Supine 07/26/22 11:11 Pulse Oximetry 95 07/26/22 11:11 Oxygen Delivery Method Room Air 07/26/22 11:11 Oxygen Flow Rate 0 07/26/22 11:11 Pain Level 7 07/26/22 11:11 Lab/Test Results Lab/Test Results: 07/26/22 11:50 Paracentesis Body Fluid Culture - Pending 07/26/22 11:50 Paracentesis Gram Stain - Pending Procedures Paracentesis Time Out Performed: Yes Local Anesthetic: Lidocaine 1% and with Epi Amount of anesthesia used (mL): 5 Fluid: clear Post Procedure Exam: awake, alert, normal BP, normal HR and normal SpO2 Patient Tolerated Procedure: well and no complications Complications: none PAWSS Have you Been Recently Intoxicated or Drunk Within the Last 30 days?: Unable to Obtain Have you Ever Experienced Previous Episodes of Alcohol Withdrawal?: Unable to Obtain Have you ever Experienced Withdrawal Seizures?: Unable to Obtain Have you ever Experienced Delirium Tremens(DT)s?: Unable to Obtain Have you ever undergone Alcohol Rehabilitation Treatment (i.e, inpt ot outpatient treatment programs)?: Unable to Obtain Have you ever Experienced Blackouts?: Unable to Obtain Have you ever Combined Alcohol with other Downers within the last 90 days?: Unable to Obtain Have you ever Combined Alcohol with any other Substance of Abuse during the last 90 days?: Unable to Obtain Positive Blood Alcohol level on Presentation? [PCS.BAL]: Unable to Obtain Evidence of Increased Autonomic Activity (i.e. HR>120, tremor, sweating, agitation, nausea)?: Unable to Obtain
[2022-07-26 12:35] LABS: Clarity Clear; Nucleated Cells 232 uL (0); Source Peritoneal
[2022-07-26 12:47] LABS: Mononuclear Cells 97 %; Polynuclear Cells 3 %
== END 2022-07-26 13:09 | disposition home or self-care (01) ==
PROVIDERS: Emergency Provider Student in an Organized Health Care Education/Training Program; PCP Family Medicine
DX: R18.8 Other ascites (principal)
CPT/HCPCS: 49082; 99284; 87070; 87205; 89051; 99283

== ENCOUNTER 2022-07-28 15:48 | Emergency (ER) | payer MEDICARE, SELFPAY ==
[2022-07-28 15:52] VITALS: BP 205/116; PULSE 129; RESP 28; TEMP 36.8; O2SAT 96
--- NOTE | 2022-07-28 16:00 | DI.CT_ITS ---
Exam(s) CT ABDOMEN PELVIS WO EXAM: CT ABDOMEN PELVIS WO INDICATION: vomiting, epigastric pain. COMPARISON: CT CT ABDOMEN PELVIS W from 07/26/[address] CHEST PE CTA from 07/01/2022 TECHNIQUE: FINDINGS: CT examination of the abdomen and pelvis was performed without contrast administration. Images obtained through the lung bases show no acute findings. There is hepatic steatosis and suggestion of nodular contour consistent with cirrhosis. There is mod erate abdominal ascites.. Gallbladder has been surgically removed, bile ducts are CT normal. Pancreas appears normal. Spleen is unremarkable in appearance. Adrenals appear normal. Multiple small probably benign renal lesion seen bilaterally, no gross interval change appearance com parison with prior studies including June 2021 urinary bladder unremarkable. Abdominal aorta is of normal diameter and no major vascular abnormality is seen. No abdominal wall hernia. No abdominal or pelvic adenopathy. [employer] structures unremarkable for age. Mixed cysts solid and fatty tumor presacral is again noted, grossly unchanged from examination of Jun. Appendix is normal. No evidence of diverticulitis or bowel obstruction. IMPRESSION: Findings consistent with hepatic steatosis, cirrhosis, and ascites. No evidence of acute process.. RADIATION DOSE DELIVERED: 875.12mGy.cm Total DLP 875.12mGy.cm Total DLP RADIATION OPTIMIZATION: All CT scans at this facility use at least one of these dose optimization te chniques: automated exposure control; mA and/or kV adjustment per patient size (includes targeted exa ms where dose is matched to clinical indication); or iterative reconstruction.
--- NOTE | 2022-07-28 16:00 | RT.EKG_ITS ---
APPROVED REPORT Exam: Resting ECG Reason for Exam: epigastric pain Patient Location: E HR:115 bpm ECG Measurements Heart Rate 115 AXIS WI 175 P 61 QRSd 89 QRS -29 QT 347 T -4 QTc 481 Conclusion Sinus tachycardia...rate> 99 Nonspecific T abnormalities, anterior leads...T <-0.10mV, V2-V4 Physician: no stemi, inverted t waves in V1-3, but unchanged from prior
[2022-07-28 16:18] LABS: Abs Immature Grans 0.04 10^3/uL (0.0-0.06); Absolute Basophil Count 0.03 10^3/uL (0.0-0.2); Absolute Lymphocyte Count 0.43 10^3/uL (1.2-3.4); Absolute Monocyte Count 0.24 10^3/uL (0.1-0.8); Absolute Neutrophil Count 6.31 10^3/uL (1.2-6.7); Basophils % 0.4; HGB 12.5 g/dL (11.2-15.7); Immature Grans % 0.6; Lymphocytes % 6.1; MCH 32.4 pg (27.0-33.0); MCHC 32.9 % (32.0-36.0); MCV 98 fL (80-95); Monocytes % 3.4; Neutrophils % 89.5; Platelet Count 173 10^3/uL (130-400); RBC 3.86 10^6/uL (3.93-5.22); RDW 16.8 % (11.7-14.6); RDW-SD 60.6 fL; WBC 7.05 10^3/uL (4.4-10.8)
[2022-07-28 16:43] LABS: ALT 41 U/L (14-59); AST 53 U/L (15-37); Albumin 3.7 g/dL (3.4-5.0); Alkaline Phosphatase 166 U/L (46-116); Anion Gap 23.8 mmol/L (3-11); BUN 17 mg/dL (7-18); Bilirubin, Total 3.1 mg/dL (0.2-1.0); CO2 16.2 mmol/L (21.0-32.0); CREATININE 1.3 mg/dL (0.55-1.02); Calcium 9.8 mg/dL (8.5-10.1); Chloride 97 mmol/L (98-107); Estimated GFR 42.62 (mL/min/1.73m2); Glucose 252 mg/dL (74-106); Lipase 26 U/L (73-393); Potassium 4.6 mmol/L (3.5-5.1); Sodium 137 mmol/L (136-145); Troponin I < 50 ng/L (<or=60)
--- NOTE | 2022-07-28 16:56 | ED.GENADUL_ITS ---
Discharge Plan Disposition Patient Disposition: Home Condition: Good Discharge Details Clinical Impression: Vomiting, Dehydration Primary Care Provider: Lavelle Galindo ED Provider: Paul Chavira Home Meds and New Rx's Prescriptions: No Action Xiidra 5 % dropperette 1 drp ophthalmic (eye) BID Rx Instructions: administer approximately 12 hours apart melatonin 3 mg capsule 3 mg PO .pm PRN (Reason: sleep) Qty: 90 4RF Rx Instructions: take in the middle of the night if you cannot get back to sleep ( total dose per 24 hrs - 9mg) budesonide [Pulmicort] 0.5 mg/2 mL suspension for nebulization 0.5 mg inhalation DAILY Qty: 60 5RF ipratropium-albuterol 0.5 mg-3 mg(2.5 mg base)/3 mL solution for nebulization 3 ml inhalation Q6H PRN Myrbetriq 50 mg tablet extended release 24 hr 50 mg PO DAILY Qty: 30 12RF lorazepam 1 mg tablet 1 mg PO QHS PRN (Reason: sleep) Qty: 20 0RF albuterol sulfate [Ventolin HFA] 90 mcg/actuation HFA aerosol inhaler 2 puff inhalation QID PRN (Reason: shortness of breath or wheezing) Qty: 8.5 1RF amlodipine 10 mg tablet 10 mg PO DAILY Qty: 90 3RF buspirone 5 mg tablet 5 mg PO BID Qty: 60 5RF folic acid 1 mg tablet 1 mg PO DAILY Qty: 90 3RF melatonin 3 mg capsule 6 mg PO HS Qty: 180 3RF metoprolol tartrate 50 mg tablet 50 mg PO DAILY Qty: 90 3RF mirtazapine 7.5 mg tablet 7.5 mg PO QHS Qty: 90 4RF ondansetron 4 mg tablet,disintegrating 4 mg PO Q8H PRN (Reason: nausea and vomiting) Qty: 20 2RF pantoprazole 40 mg tablet,delayed release (DR/EC) 40 mg PO DAILY Qty: 90 3RF sucralfate 1 gram tablet 1 g PO BID Qty: 60 11RF thiamine HCl (vitamin B1) 100 mg tablet 100 mg PO DAILY Qty: 90 3RF valacyclovir [Valtrex] 500 mg tablet 500 mg PO DAILY Qty: 90 3RF Rx Instructions: Take 500 mg BID for 3 days, then take daily fluticasone propionate 50 mcg/actuation spray,suspension 2 spray NS daily prn Qty: 16 5RF cyanocobalamin (vitamin B-12) [Vitamin B-12] 500 mcg tablet 1,000 mcg PO DAILY Qty: 180 3RF ferrous sulfate 325 mg (65 mg iron) tablet 325 mg PO BID Qty: 180 3RF Rx Instructions: do not take within 2 hours of antibiotics furosemide 20 mg tablet 20 mg PO BID@0830,1600 Qty: 180 3RF multivitamin [Multiple Vitamins] Tablet 1 tab PO DAILY Qty: 90 3RF quetiapine 25 mg tablet See Rx Instructions PO BID Qty: 60 5RF Rx Instructions: 0.5 tab PO twice a day; spironolactone [Aldactone] 50 mg tablet 50 mg PO BID Qty: 180 3RF venlafaxine 75 mg capsule,extended release 24hr 75 mg PO DAILY Qty: 90 3RF Hold Instructions: Home Medication placed on hold at Doctor's office carboxymethylcellulose sodium [Refresh Plus] 0.5 % Dropperette 1 drp OU Q4H WHILE AWAKE Qty: 30 0RF Label Comments: 08/15/19 pt states that she took her blister pack of meds but that she vomited them up pantoprazole 40 mg Tablet,Delayed Release (Dr/Ec) 40 mg PO BID@729,1999 Qty: 60 0RF albuterol sulfate 90 mcg/actuation HFA aerosol inhaler 2 puff inhalation Q6H PRN (Reason: shortness of breath or wheezing) Qty: 8.5 0RF Discharge Instructions Instructions: Dehydration (ED) Additional Instructions: Please take the Zofran as needed for nausea and vomiting. Please follow-up closely with your primary care provider for reassessment. If you notice any worsening of your symptoms, or any new symptoms such as vomiting, diarrhea, fever, chills, shortness of breath, chest pain, numbness, weakness, or fainting , please return immediately to the emergency department for reevaluation. Please follow up with your primary care provider as soon as possible for reassessment and reevaluation. As always, it was a pleasure participating in your medical care today. Referrals: Lavelle Galindo MD [Primary Care Provider] - Medical Decision Making 77-year-old female with a past medical history of chronic cirrhosis of the liver, asthma/reactive airway disease, alcoholic cirrhosis, GERD, previous GI bleeds, palliative care patient in the past, who presents today for nausea and vomiting. Patient has had nausea and vomiting for the last 2 to 3 days. She was actually here yesterday with abdominal bloating from her ascites. 2-1/2 L were removed and she was feeling much better after this. Work-up was negative for evidence of spontaneous bacterial peritonitis. Unfortunately since going home she still has nausea and vomiting. She has not been able to keep anything down. She admits to some mild epigastric achiness but denies any abdominal pain. She states that her abdominal distention is much better and the pain is also much better after the paracentesis. She denies fever or chills. No hematemesis. No bloody diarrhea. No other complaints at this time. Exam demonstrates mild epigastric achiness, but no guarding rebound or signs of tenderness on the abdomen. No disproportional tenderness. Symptoms inconsistent with spontaneous bacterial peritonitis. Concern for pancreatitis. Will give antiemetics, gently rehydrate, get a CT scan, monitor closely and reassess. 9:25 PM Laboratory work-up has returned, patient's electrolytes are all stable, she has been rehydrated with a liter of normal saline. She is feeling better. Patient's anion gap is elevated, creatinine stable, no acute changes. Troponin stable. Lipase normal. Patient was given an additional Reglan and Zofran and she has been able to keep down 2 cups of soda and crackers without difficulty. She still feels nauseous but the symptoms are improved. Repeat abdominal exam continues to show no signs of an acute surgical abdomen. She has mild achiness throughout. No evidence of bacterial peritonitis, peritoneal abdomen, or other critical abnormality. Vital signs notably stable. I did discuss observation versus discharge. Currently there are no beds available in the hospital, and we have called in a 2-hour radius around the hospital and there are no beds available and other surrounding hospitals. I did discuss with the patient that the options are to wait here in the emergency department for the next 16 hours until a potential bed opens here at our hospital, alternatively we could seek for transfer to other distant facilities, or go home as the patient's vomiting has resolved and she is feeling better. Through shared decision-making process patient has elected to go home. We will send her home with additional Zofran. She states that she will come back if her symptoms return, but otherwise feels stable for now to go home. No evidence of an acute surgical abdomen. Discussed red flags for which to return. I have extensively reviewed the treatment plan and discharge instructions with the patient. I have addressed all patient concerns at this time. The patient was made aware of what symptoms to monitor for that would warrant a return to the emergency department. Discussed the plan with the patient, they demonstrate verbal understanding and agreement with our assessment and plan at this time. The documentation in this chart was dictated using Q Interactive dictation software. Please excuse any dictation errors. FINDINGS: Lungs: There is slight fibrosis and scarring at the right lung base. There is slight atelectatic changes at the right lung base. Heart: There is slight coronary artery calcifications. Liver: There is fatty infiltration of the liver. Underlying liver lesions are not totally excluded. There is suspected cirrhosis. Gallbladder and bile ducts: The patient is status post cholecystectomy. Pancreas: The pancreas is somewhat atrophic. Spleen: The spleen is within normal limits. Adrenal glands: The right adrenal gland is within normal limits. There is hypertrophy of the left adrenal gland. There is a small left adrenal adenoma measuring 1.7 cm. Kidneys and ureters: There is a mid to lower pole right simple renal cyst measuring approximately 3.2 cm. There is a suspected hyperdense right renal cyst. This is too small characterize by CT criteria. There is a calcification involving the cortex of the left kidney. There is a cyst in the midpole of the left kidney measuring approximately 1.5 cm. This appears somewhat complex. There is an additional hyperdense cyst in the lower pole of the left kidney measuring approximately 9 mm. This is too small to characterize by CT criteria. Stomach and bowel: Unremarkable. No obstruction. No mucosal thickening. Appendix: No evidence of appendicitis. Intraperitoneal space: There is ascites. Vasculature: There is aneurysmal dilatation of the ascending aorta measuring up to 4.1 cm. There are arteriosclerotic changes of the aorta. Lymph nodes: No enlarged lymph nodes. Urinary bladder: The urinary bladder is unremarkable. Reproductive: The uterus and ovaries are within normal limits for a patient of this age. Bones/joints: There are multiple bilateral old healed rib fractures. There are degenerative changes of the thoracic and lumbar spines. There is a levoscoliosis of the lumbar spine. There is degenerative disc disease at multiple levels. Soft tissues: There are bilateral fat containing incipient inguinal hernias. There is ascites within the left inguinal hernia. Other findings: The study is somewhat limited due to lack of IV contrast. IMPRESSION: 1. Limited study due to lack of IV contrast. Fatty infiltration of the liver. Underlying lesion within the liver are not excluded. There is suspected cirrhosis. The liver can be re- evaluated with CT scan of the liver utilizing hemangioma protocol. Ascites. 2. Renal lesions as above. Further evaluation with a CT scan of the kidneys pre and postcontrast administration utilizing thin sections through the kidneys recommended to assess for any enhancing lesions. 3. Osseous findings as above. 4. Aneurysmal dilatation of the ascending aorta measuring up to 4.1 cm. Arteriosclerotic changes of the aorta. Slight coronary artery calcifications. 5. Status post cholecystectomy. 6. Left adrenal adenoma. Thank you for allowing us to participate in the care of your patient. Dictated and Authenticated by: Morgan Sow MD 07/28/2022 6:49 PM Eastern Time ([place] & [place]) Sign Out No HPI General Date/Time Provider Initiated Documentation: 07/28/22 15:53 . HPI Narrative: 77-year-old female with a past medical history of chronic cirrhosis of the liver, asthma/reactive airway disease, alcoholic cirrhosis, GERD, previous GI bleeds, palliative care patient in the past, who presents today for nausea and vomiting. Patient has had nausea and vomiting for the last 2 to 3 days. She was actually here yesterday with abdominal bloating from her ascites. 2-1/2 L were removed and she was feeling much better after this. Work-up was negative for evidence of spontaneous bacterial peritonitis. Unfortunately since going home she still has nausea and vomiting. She has not been able to keep anything down. She admits to some mild epigastric achiness but denies any abdominal pain. She states that her abdominal distention is much better and the pain is also much better after the paracentesis. She denies fever or chills. No hematemesis. No bloody diarrhea. No other complaints at this time. Related Data Home Medications Medication Instructions Recorded Confirmed carboxymethylcellulose sodium 0.5 1 drp OU Q4H WHILE AWAKE #30 ea 06/20/19 07/28/22 % eye drops in a dropperette (Refresh Plus) lifitegrast 5 % eye drops in a 1 drp ophthalmic (eye) BID 08/05/20 07/28/22 dropperette (Xiidra) ipratropium 0.5 mg-albuterol 3 mg 3 ml inhalation Q6H PRN 12/25/21 07/28/22 (2.5 mg base)/3 mL nebulization soln albuterol sulfate 90 mcg/actuation 2 puff inhalation QID PRN 02/08/22 07/28/22 aerosol inhaler (Ventolin HFA) shortness of breath or wheezing #8.5 grams amlodipine 10 mg tablet 10 mg PO DAILY #90 tabs 02/08/22 07/28/22 buspirone 5 mg tablet 5 mg PO BID #60 tabs 02/08/22 07/28/22 folic acid 1 mg tablet 1 mg PO DAILY #90 tabs 02/08/22 07/28/22 melatonin 3 mg capsule 6 mg PO HS #180 caps 02/08/22 07/28/22 metoprolol tartrate 50 mg tablet 50 mg PO DAILY #90 tabs 02/08/22 07/28/22 mirtazapine 7.5 mg tablet 7.5 mg PO QHS #90 tabs 02/08/22 07/28/22 ondansetron 4 mg disintegrating 4 mg PO Q8H PRN nausea and 02/08/22 07/28/22 tablet vomiting #20 tabs pantoprazole 40 mg tablet,delayed 40 mg PO DAILY #90 tabs 02/08/22 07/28/22 release sucralfate 1 gram tablet 1 g PO BID #60 tabs 02/08/22 07/28/22 thiamine HCl (vitamin B1) 100 mg 100 mg PO DAILY #90 tabs 02/08/22 07/28/22 tablet valacyclovir 500 mg tablet 500 mg PO DAILY #90 tabs 02/08/22 07/28/22 (Valtrex) fluticasone propionate 50 2 spray NS daily prn #16 grams 03/06/22 07/28/22 mcg/actuation nasal spray,suspension budesonide 0.5 mg/2 mL suspension 0.5 mg (2 mL) inhalation DAILY #60 05/06/22 07/28/22 for nebulization (Pulmicort) mL melatonin 3 mg capsule 3 mg PO .pm PRN sleep #90 caps 05/12/22 07/28/22 pantoprazole 40 mg tablet,delayed 40 mg PO BID@0730,2000 #60 tabs 05/21/22 07/28/22 release lorazepam 1 mg tablet 1 mg PO QHS PRN sleep #20 tabs 07/08/22 07/28/22 cyanocobalamin (vitamin B-12) 500 1,000 mcg PO DAILY #180 tabs 07/10/22 07/28/22 mcg tablet (Vitamin B-12) ferrous sulfate 325 mg (65 mg 325 mg PO BID #180 tabs 07/10/22 07/28/22 iron) tablet furosemide 20 mg tablet 20 mg PO BID@0830,1600 #180 tabs 07/10/22 07/28/22 multivitamin (Multiple Vitamins 1 tab PO DAILY #90 tabs 07/10/22 07/28/22 tablet) quetiapine 25 mg tablet See Rx Instructions PO BID #60 tabs 07/10/22 07/28/22 spironolactone 50 mg tablet 50 mg PO BID #180 tabs 07/10/22 07/28/22 (Aldactone) venlafaxine 75 mg capsule,extended 75 mg PO DAILY #90 caps 07/10/22 07/28/22 release 24 hr albuterol sulfate 90 mcg/actuation 2 puff inhalation Q6H PRN 07/16/22 07/28/22 aerosol inhaler shortness of breath or wheezing #8.5 grams mirabegron 50 mg tablet,extended 50 mg PO DAILY #30 tabs 07/20/22 07/28/22 release 24 hr (Myrbetriq) Previous Rx's Medication Instructions Recorded carboxymethylcellulose sodium 0.5 1 drp OU Q4H WHILE AWAKE #30 ea 06/20/19 % eye drops in a dropperette (Refresh Plus) albuterol sulfate 90 mcg/actuation 2 puff inhalation QID PRN 02/08/22 aerosol inhaler (Ventolin HFA) shortness of breath or wheezing #8.5 grams amlodipine 10 mg tablet 10 mg PO DAILY #90 tabs 02/08/22 buspirone 5 mg tablet 5 mg PO BID #60 tabs 02/08/22 folic acid 1 mg tablet 1 mg PO DAILY #90 tabs 02/08/22 melatonin 3 mg capsule 6 mg PO HS #180 caps 02/08/22 metoprolol tartrate 50 mg tablet 50 mg PO DAILY #90 tabs 02/08/22 mirtazapine 7.5 mg tablet 7.5 mg PO QHS #90 tabs 02/08/22 ondansetron 4 mg disintegrating 4 mg PO Q8H PRN nausea and 02/08/22 tablet vomiting #20 tabs pantoprazole 40 mg tablet,delayed 40 mg PO DAILY #90 tabs 02/08/22 release sucralfate 1 gram tablet 1 g PO BID #60 tabs 02/08/22 thiamine HCl (vitamin B1) 100 mg 100 mg PO DAILY #90 tabs 02/08/22 tablet valacyclovir 500 mg tablet 500 mg PO DAILY #90 tabs 02/08/22 (Valtrex) fluticasone propionate 50 2 spray NS daily prn #16 grams 03/06/22 mcg/actuation nasal spray,suspension budesonide 0.5 mg/2 mL suspension 0.5 mg (2 mL) inhalation DAILY #60 05/06/22 for nebulization (Pulmicort) mL melatonin 3 mg capsule 3 mg PO .pm PRN sleep #90 caps 05/12/22 pantoprazole 40 mg tablet,delayed 40 mg PO BID@0730,2000 #60 tabs 05/21/22 release lorazepam 1 mg tablet 1 mg PO QHS PRN sleep #20 tabs 07/08/22 cyanocobalamin (vitamin B-12) 500 1,000 mcg PO DAILY #180 tabs 07/10/22 mcg tablet (Vitamin B-12) ferrous sulfate 325 mg (65 mg 325 mg PO BID #180 tabs 07/10/22 iron) tablet furosemide 20 mg tablet 20 mg PO BID@0830,1600 #180 tabs 07/10/22 multivitamin (Multiple Vitamins 1 tab PO DAILY #90 tabs 07/10/22 tablet) quetiapine 25 mg tablet See Rx Instructions PO BID #60 tabs 07/10/22 spironolactone 50 mg tablet 50 mg PO BID #180 tabs 07/10/22 (Aldactone) venlafaxine 75 mg capsule,extended 75 mg PO DAILY #90 caps 07/10/22 release 24 hr albuterol sulfate 90 mcg/actuation 2 puff inhalation Q6H PRN 07/16/22 aerosol inhaler shortness of breath or wheezing #8.5 grams mirabegron 50 mg tablet,extended 50 mg PO DAILY #30 tabs 07/20/22 release 24 hr (Myrbetriq) Allergies Allergy/AdvReac Type Severity Reaction Status Date / Time Penicillins Allergy Mild Rash Verified 07/28/22 15:58 ramipril Allergy Unknown ITCHING Verified 07/28/22 15:58 meperidine [From Demerol] AdvReac Severe Nausea Verified 07/28/22 15:58 bupropion AdvReac Mild GI upset Verified 07/28/22 15:58 AMBER Inhibitors AdvReac Unknown COUGH Verified 07/28/22 15:58 alendronate sodium AdvReac Unknown GI Distress Verified 07/28/22 15:58 clarithromycin AdvReac Unknown intolerant Verified 07/28/22 15:58 paroxetine AdvReac Unknown Diarrhea Verified 07/28/22 15:58 General Stated Complaint: Abd Prob JORDAN: 3 Review of Systems All systems reviewed & are unremarkable except as noted in HPI and below PFSH All Active Problems (Updated 07/28/22 @ 21:30 by Paul Chavira DO) Abdominal ascites (Acute) Vomiting (Acute) Dehydration (Acute) Mixed stress and urge urinary incontinence (Acute) Cough (Acute) Thyroid nodule (Acute) Pneumonia due to COVID-19 virus (Acute) Anxiety (Chronic) Adverse effect of metronidazole (Acute) Medication monitoring encounter (Acute) Advance care planning (Acute) Cirrhosis of liver with ascites (Acute) Animal bite of right hand with infection (Acute) Umbilical hernia (Acute) 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 ascites (Acute) Hyperbilirubinemia (Acute) Shortness of breath (Acute) Elevated blood pressure reading without diagnosis of hypertension (Acute) Left arm pain (Acute) Ambulatory dysfunction (Acute) Incontinence (Acute) Urge incontinence (Acute) Anorexia (Acute) Headache (Acute) Onychomycosis (Acute) Depression (Chronic) Chest pain (Acute) Foot pain, right (Acute) Tendinitis of left rotator cuff (Acute) Macrocytosis (Acute 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 Leukopenia (Acute) Headache (Acute) Epigastric abdominal pain (Acute) Calcific tendinitis of left shoulder (Acute) Pulmonary mass (Acute) spiculated mass Pneumonia (Acute) Depression with suicidal ideation (Acute) Alcohol abuse (Chronic) Diarrhea (Acute) Epigastric pain (Acute) Dehydration (Acute) Hypokalemia (Acute) Discharge planning issues (Acute) Palliative care patient (Acute) Difficult intravenous access (Acute) Multiple IV attempts, usually requires ultrasound placement. PTSD (post-traumatic stress disorder) (Acute) Anemia (Chronic) Depression (Chronic) Foot pain, right (Acute) T12 compression fracture (Acute) Presacral mass (Chronic) Deviated nasal septum (Acute) Frequent falls (Chronic) Head injury (Acute) Ambulatory dysfunction (Chronic) Shoulder pain, right (Chronic) DVT prophylaxis (Acute) Suicidal ideation (Acute) Dry eye (Acute) Pruritus (Acute) Dystrophic nail (Acute) AMBER (acute kidney injury) (Acute) Iron deficiency anemia (Chronic) Alcohol abuse (Chronic) Hypomagnesemia (Chronic) Discharge planning issues (Acute) UTI (urinary tract infection) (Acute) Fall (Acute) Atelectasis of left lung (Chronic) Advance directive on file (Acute) Nodule of upper lobe of right lung (Acute ~09/13/18) [facility] 12[facility] SPICULATED -kb Cataract (Chronic 11/07/15) Hypertension (Chronic) high today; she will check readings at home Hyperlipidemia (Chronic) Back pain, chronic (Chronic) Depression (Chronic) Osteopenia (Chronic) Medical History Adjustment disorder with depressed mood Alcoholic ketosis Anemia Cervical radicular pain neck pain and [facility] 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) pls refrain from alcohol Chronic alcoholism she will not stop drinking unless she checks with me, so that we can help her avert withdrawal I do not think she is capable on her own--she would need placement to achieve required goal of 3 months of sobriety Chronic diarrhea Closed right humeral fracture Corneal ulcer, right (~08/23/18) 08/23/18; [facility] Fracture of humerus, left, closed Genital herpes simplex recurrent gential; suppressive Valtrex GERD (gastroesophageal reflux disease) GI bleed (12/20/16) Hypertension Hypokalemia Hypomagnesemia Incidental lung nodule, greater than or equal to 8mm 1cm, spiculated, stable for many years, recommend f/u in 6 mo Multiple rib fractures 03/11/19 [facility] Non-cardiac chest pain (09/21/16[place] [facility] NEGATIVE MP Osteoarthritis Palliative care patient (03/21/17) Pancreatitis, alcoholic, acute Peripheral edema Photophobia of right eye Pleural effusion on left 03/11/19 [facility] Presacral mass (~09/15/18) 09/15/18 [facility] Sciatica right, epidural injuections [facility] Tubular adenoma of colon (01/28/17) Urinary incontinence 01/24/13 urethral suspension and sling [place] [facility]bladder suspension [place] 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 Bladder repair. Repair bladder injury, simple Family History Mother No problems noted. Father , DROWNED at age 50. No problems noted. Sister Personal history of malignant neoplasm MELANOMA Sister No problems noted. Grandfather Personal history of malignant neoplasm STOMACH Grandfather Personal history of malignant neoplasm PROSTATE Grandmother Heart disease IA Acute ill-defined cerebrovascular disease Grandmother Personal history of malignant neoplasm UTERINE Aunt , IA Heart disease IA Aunt , IA Heart disease Brother No problems noted. Social History Smoking/Tobacco Use Status: Former Tobacco Use Quit Date: 08/05/20 Smoking risk assessment performed?: Yes Alcohol Intake: current Alcohol Intake frequency: 3 or more drinks per day Alcohol type: hard liquor Drug use: Never Substance use type: does not use Current gender identity: female Do you feel safe at home: Yes Do you feel safe in your relationship?: Yes Exam Narrative Exam Narrative: 1.Const: Well-nourished, Well-developed, appearing stated age 2.Eyes: PERRL, no conjunctival injection, and symmetrical lids. 3.ENT: Atraumatic external nose and ears. Moist MM. Neck: Symmetric, trachea midline, No thyromegaly. 4.CVS: +S1/S2, No murmurs or gallops. Peripheral pulses 2+ and equal in all extremities. Brisk capillary refill in all extremities. 5.RESP: Unlabored respiratory effort. Clear to auscultation bilaterally. No wheezes rales or rhonchi 6.GI: Soft, Nontender/Nondistended, No hepatosplenomegaly. No guarding or rebound. No pain to McBurney's point, negative Zavala sign. Mild achiness throughout on palpation though. 7.MSK: Normocephalic/Atraumatic, Extremities w/o deformity or ttp No cyanosis or clubbing, Normal movement of all extremities 8.Skin: Warm, Dry. No rashes or lesions. 9.Neuro: felt tipping machine tender II-XII grossly intact. Sensation grossly intact, no focal neurologic deficits. 10.Psych: (AAO) x3. Appropriate mood and affect Course Vital Signs Vital signs: Vital Signs Temperature 36.8 C 07/28/22 15:52 Pulse 129 H 07/28/22 15:52 Respiratory Rate 28 H 07/28/22 15:52 Blood Pressure 205/116 H 07/28/22 15:52 Pulse Oximetry 96 07/28/22 15:52 Temperature 36.8 C 07/28/22 15:52 Temperature Source Oral 07/28/22 15:52 Pulse 129 H 07/28/22 15:52 Respiratory Rate 28 H 07/28/22 15:52 Respiratory Effort Labored 07/28/22 15:55 Blood Pressure 205/116 H 07/28/22 15:52 Blood Pressure Position Supine 07/28/22 15:52 Pulse Oximetry 96 07/28/22 15:52 Oxygen Delivery Method Room Air 07/28/22 15:52 Oxygen Flow Rate 0 07/28/22 15:52 Pain Level 7 07/28/22 15:59 Lab/Test Results Lab/Test Results: Laboratory Tests Range/Units 07/28/22 07/28/22 16:10 16:10 WBC (4.4-10.8) 10^3/uL 7.05 RBC (3.93-5.22) 10^6/uL 3.86 L Hgb (11.2-15.7) g/dL 12.5 Hct (36.0-46.0) % 38.0 MCV (80-95) fL 98 H MCH (27.0-33.0) pg 32.4 MCHC (32.0-36.0) % 32.9 RDW (11.7-14.6) % 16.8 H Plt Count (130-400) 10^3/uL 173 MPV (8.0-11.0) fL 9.0 Immature Gran % 0.6 Neutrophils % 89.5 Lymphocytes % 6.1 Monocytes % 3.4 Eosinophils % 0.0 Basophils % 0.4 Nucleated RBC % (0.0-0.3) % 0.0 Absolute Neutrophils (1.2-6.7) 10^3/uL 6.31 Absolute Lymphocytes (1.2-3.4) 10^3/uL 0.43 L Absolute Monocytes (0.1-0.8) 10^3/uL 0.24 Absolute Eosinophils (0.0-0.7) 10^3/uL 0.00 Absolute Basophils (0.0-0.2) 10^3/uL 0.03 Sodium (136-145) mmol/L 137 Potassium (3.5-5.1) mmol/L 4.6 Chloride (98-107) mmol/L 97 L Carbon Dioxide (21.0-32.0) mmol/L 16.2 L Anion Gap (3-11) mmol/L 23.8 H BUN (7-18) mg/dL 17 Creatinine (0.55-1.02) mg/dL 1.3 H Est GFR (CKD-EPI 2020) (mL/min/1.73m2) 42.62 Glucose (74-106) mg/dL 252 H Calcium (8.5-10.1) mg/dL 9.8 Total Bilirubin (0.2-1.0) mg/dL 3.1 H AST (15-37) U/L 53 H ALT (14-59) U/L 41 Alkaline Phosphatase (46-116) U/L 166 H Troponin I (<or=60) ng/L < 50 Total Protein (6.4-8.2) g/dL 7.0 Albumin (3.4-5.0) g/dL 3.7 Lipase (73-393) U/L 26 PAWSS Have you Been Recently Intoxicated or Drunk Within the Last 30 days?: No Have you Ever Experienced Previous Episodes of Alcohol Withdrawal?: Yes Have you ever Experienced Withdrawal Seizures?: No Have you ever Experienced Delirium Tremens(DT)s?: No Have you ever undergone Alcohol Rehabilitation Treatment (i.e, inpt ot outpatient treatment programs)?: Yes Have you ever Experienced Blackouts?: Yes Have you ever Combined Alcohol with other Downers within the last 90 days?: No Have you ever Combined Alcohol with any other Substance of Abuse during the last 90 days?: No Positive Blood Alcohol level on Presentation? [PCS.BAL]: No Evidence of Increased Autonomic Activity (i.e. HR>120, tremor, sweating, agitation, nausea)?: Yes Result: 4
[2022-07-28] MEDS: Normal Saline 1,000 ML 1000 ML IV (16:57)
[2022-07-28] MEDS: Ondansetron 4 MG/2 ML VIAL IVP ×2 (16:57→20:40)
--- NOTE | 2022-07-28 18:49 | DI.VRAD_ITS ---
PROCEDURE INFORMATION: Exam: CT Abdomen And Pelvis Without Contrast Exam date and time: 07/28/2022 6:14 PM Age: 77 years old Clinical indication: Other: Vomiting, epigastric pain TECHNIQUE: Imaging protocol: Computed tomography of the abdomen and pelvis without contrast. COMPARISON: CT ABDOMEN PELVIS W 05/28/2022 11:00 PM FINDINGS: Lungs: There is slight fibrosis and scarring at the right lung base. There is slight atelectatic changes at the right lung base. Heart: There is slight coronary artery calcifications. Liver: There is fatty infiltration of the liver. Underlying liver lesions are not totally excluded. There is suspected cirrhosis. Gallbladder and bile ducts: The patient is status post cholecystectomy. Pancreas: The pancreas is somewhat atrophic. Spleen: The spleen is within normal limits. Adrenal glands: The right adrenal gland is within normal limits. There is hypertrophy of the left adrenal gland. There is a small left adrenal adenoma measuring 1.7 cm. Kidneys and ureters: There is a mid to lower pole right simple renal cyst measuring approximately 3.2 cm. There is a suspected hyperdense right renal cyst. This is too small characterize by CT criteria. There is a calcification involving the cortex of the left kidney. There is a cyst in the midpole of the left kidney measuring approximately 1.5 cm. This appears somewhat complex. There is an additional hyperdense cyst in the lower pole of the left kidney measuring approximately 9 mm. This is too small to characterize by CT criteria. Stomach and bowel: Unremarkable. No obstruction. No mucosal thickening. Appendix: No evidence of appendicitis. Intraperitoneal space: There is ascites. Vasculature: There is aneurysmal dilatation of the ascending aorta measuring up to 4.1 cm. There are arteriosclerotic changes of the aorta. Lymph nodes: No enlarged lymph nodes. Urinary bladder: The urinary bladder is unremarkable. Reproductive: The uterus and ovaries are within normal limits for a patient of this age. Bones/joints: There are multiple bilateral old healed rib fractures. There are degenerative changes of the thoracic and lumbar spines. There is a levoscoliosis of the lumbar spine. There is degenerative disc disease at multiple levels. Soft tissues: There are bilateral fat containing incipient inguinal hernias. There is ascites within the left inguinal hernia. Other findings: The study is somewhat limited due to lack of IV contrast. IMPRESSION: 1. Limited study due to lack of IV contrast. Fatty infiltration of the liver. Underlying lesion within the liver are not excluded. There is suspected cirrhosis. The liver can be re-evaluated with CT scan of the liver utilizing hemangioma protocol. Ascites. 2. Renal lesions as above. Further evaluation with a CT scan of the kidneys pre and postcontrast administration utilizing thin sections through the kidneys recommended to assess for any enhancing lesions. 3. Osseous findings as above. 4. Aneurysmal dilatation of the ascending aorta measuring up to 4.1 cm. Arteriosclerotic changes of the aorta. Slight coronary artery calcifications. 5. Status post cholecystectomy. 6. Left adrenal adenoma. Dictated and Authenticated by: Morgan Sow MD. Ordering:SHADI Miller MD
[2022-07-28] MEDS: Metoclopramide 10 MG/2 ML VIAL IVP (20:39)
[2022-07-28] MEDS: Normal Saline 500 ML IV (21:36)
--- NOTE | 2022-07-29 11:27 | NUR.NOTE ---
Nursing Note: Patient called stating that Dr Chavira told her to call and see if there are beds for admission if she still was not feeling well. I looked up the provider note, he stated to call PCP for close follow up, return to ED with worsening symptoms or not feeling better. I told the patient this. She states she does not want to come in only to be discharged home. I told her that I cannot say that is what is going to happen. If she is not feeling better to return to the ED.
== END 2022-07-28 22:09 | disposition home or self-care (01) ==
PROVIDERS: Emergency Provider Student in an Organized Health Care Education/Training Program; PCP Family Medicine
DX: E86.0 Dehydration (principal); R11.2 Nausea with vomiting, unspecified; I10 Essential (primary) hypertension; J45.909 Unspecified asthma, uncomplicated; F43.21 Adjustment disorder with depressed mood; Z79.52 Long term (current) use of systemic steroids; Z79.51 Long term (current) use of inhaled steroids
CPT/HCPCS: 36415; 80053; 83690; 93005; 96361; 96374; 96375; 96376; 99284; 74176; 84484; 85025; 93010; 99285; J2405; J2765

== ENCOUNTER 2022-07-29 13:06 | Inpatient (IN) | payer MEDICARE, SELFPAY ==
[2022-07-29] VITALS (50 sets, daily range): BP systolic 121–165; BP diastolic 59–108; PULSE 96–115; RESP 13–34; TEMP 36.6–37; O2SAT 94–100
--- NOTE | 2022-07-29 13:16 | ED.GENADUL_ITS ---
Discharge Plan Disposition Patient Disposition: Admit to [facility] Condition: Improving Discharge Details Clinical Impression: Hypomagnesemia, Alcohol abuse, Elevated troponin Admit Date/Time: 07/29/22 18:43 Admit Provider: Clarence Morelos Attending Provider: Clarence Morelos Primary Care Provider: Lavelle Galindo ED Provider: Moose Lafleur Medical Decision Making 77-year-old female presents from home via EMS. She complains of persistent nausea, vomiting and epigastric abdominal pain. Last drink was on Tuesday of this week. She was seen in the emergency department yesterday and underwent work-up including laboratory testing and CT imaging. She had also been seen in the emergency department July 26 and underwent uneventful paracentesis for approximately 2.5 L fluid reduction. She was seen earlier in the day by the palliative care team. Their note mentions a discussion of hospice which the patient has deferred for the time being. Today she complains as above of ongoing GI upset. She is high risk for metabolic abnormalities, electrolyte derangement, dehydration. IV access was established, screening labs obtained and patient given antiemetic, anxiolytic, Protonix, and intravenous fluids. Labs: Sodium 135, potassium 3.6, chloride 99, bicarb 27, BUN 11, creatinine 1.2. Magnesium is low at 1.1 and supplemented in the emergency department. Note of persistent hyperbilirubinemia with a total bili of 2.7, AST 51, ALT 36. Troponin is slightly elevated at 68. CXR: No evidence of acute process. Patient observed and troponin repeated. The troponin remains elevated above normal. Patient does not have a history of elevated troponins in the past. Clinically she is somewhat improved. Case discussed with Dr. Morelos, we will add Lovenox and Plavix, patient to be admitted. Sign Out No HPI General Mode of arrival: ambulatory . Date/Time Provider Initiated Documentation: 07/29/22 13:10 . Limitations to Documentation: no limitations . Information obtained by: patient . History of Present Illness 77 year old F presents to the emergency department with the chief complaint of Nausea, vomiting, recurrent, described as moderate and similar to prior episodes, and is localized to the abdomen. Patient reports no radiation. Patient started experiencing this day(s) and it has been intermittent. No relieving factors improve symptom(s), No exacerbating factors reported . Patient notes cough, loss of appetite and nausea/vomiting; denies chest pain, fever/chills, shortness of breath and syncope. Patient did receive the following treatments prior to arrival, none Related Data Home Medications Medication Instructions Recorded Confirmed carboxymethylcellulose sodium 0.5 1 drp OU Q4H WHILE AWAKE #30 ea 06/20/19 07/29/22 % eye drops in a dropperette (Refresh Plus) lifitegrast 5 % eye drops in a 1 drp ophthalmic (eye) BID 08/05/20 07/29/22 dropperette (Xiidra) ipratropium 0.5 mg-albuterol 3 mg 3 ml inhalation Q6H PRN 12/25/21 07/29/22 (2.5 mg base)/3 mL nebulization soln albuterol sulfate 90 mcg/actuation 2 puff inhalation QID PRN 02/08/22 07/29/22 aerosol inhaler (Ventolin HFA) shortness of breath or wheezing #8.5 grams amlodipine 10 mg tablet 10 mg PO DAILY #90 tabs 02/08/22 07/29/22 buspirone 5 mg tablet 5 mg PO BID #60 tabs 02/08/22 07/29/22 folic acid 1 mg tablet 1 mg PO DAILY #90 tabs 02/08/22 07/29/22 melatonin 3 mg capsule 6 mg PO HS #180 caps 02/08/22 07/29/22 metoprolol tartrate 50 mg tablet 50 mg PO DAILY #90 tabs 02/08/22 07/29/22 mirtazapine 7.5 mg tablet 7.5 mg PO QHS #90 tabs 02/08/22 07/29/22 ondansetron 4 mg disintegrating 4 mg PO Q8H PRN nausea and 02/08/22 07/29/22 tablet vomiting #20 tabs pantoprazole 40 mg tablet,delayed 40 mg PO DAILY #90 tabs 02/08/22 07/29/22 release sucralfate 1 gram tablet 1 g PO BID #60 tabs 02/08/22 07/29/22 thiamine HCl (vitamin B1) 100 mg 100 mg PO DAILY #90 tabs 02/08/22 07/29/22 tablet valacyclovir 500 mg tablet 500 mg PO DAILY #90 tabs 02/08/22 07/29/22 (Valtrex) fluticasone propionate 50 2 spray NS daily prn #16 grams 03/06/22 07/29/22 mcg/actuation nasal spray,suspension budesonide 0.5 mg/2 mL suspension 0.5 mg (2 mL) inhalation DAILY #60 05/06/22 07/29/22 for nebulization (Pulmicort) mL melatonin 3 mg capsule 3 mg PO .pm PRN sleep #90 caps 05/12/22 07/29/22 pantoprazole 40 mg tablet,delayed 40 mg PO BID@0730,2000 #60 tabs 05/21/22 07/29/22 release lorazepam 1 mg tablet 1 mg PO QHS PRN sleep #20 tabs 07/08/22 07/29/22 cyanocobalamin (vitamin B-12) 500 1,000 mcg PO DAILY #180 tabs 07/10/22 07/29/22 mcg tablet (Vitamin B-12) ferrous sulfate 325 mg (65 mg 325 mg PO BID #180 tabs 07/10/22 07/29/22 iron) tablet furosemide 20 mg tablet 20 mg PO BID@0830,1600 #180 tabs 07/10/22 07/29/22 multivitamin (Multiple Vitamins 1 tab PO DAILY #90 tabs 07/10/22 07/29/22 tablet) quetiapine 25 mg tablet See Rx Instructions PO BID #60 tabs 07/10/22 07/29/22 spironolactone 50 mg tablet 50 mg PO BID #180 tabs 07/10/22 07/29/22 (Aldactone) venlafaxine 75 mg capsule,extended 75 mg PO DAILY #90 caps 07/10/22 07/29/22 release 24 hr albuterol sulfate 90 mcg/actuation 2 puff inhalation Q6H PRN 07/16/22 07/29/22 aerosol inhaler shortness of breath or wheezing #8.5 grams mirabegron 50 mg tablet,extended 50 mg PO DAILY #30 tabs 07/20/22 07/29/22 release 24 hr (Myrbetriq) ciprofloxacin HCl 250 mg tablet 250 mg PO BID #14 tabs 07/29/22 07/29/22 Previous Rx's Medication Instructions Recorded carboxymethylcellulose sodium 0.5 1 drp OU Q4H WHILE AWAKE #30 ea 06/20/ % eye drops in a dropperette (Refresh Plus) albuterol sulfate 90 mcg/actuation 2 puff inhalation QID PRN 02/08/22 aerosol inhaler (Ventolin HFA) shortness of breath or wheezing #8.5 grams amlodipine 10 mg tablet 10 mg PO DAILY #90 tabs 02/08/22 buspirone 5 mg tablet 5 mg PO BID #60 tabs 02/08/22 folic acid 1 mg tablet 1 mg PO DAILY #90 tabs 02/08/22 melatonin 3 mg capsule 6 mg PO HS #180 caps 02/08/22 metoprolol tartrate 50 mg tablet 50 mg PO DAILY #90 tabs 02/08/22 mirtazapine 7.5 mg tablet 7.5 mg PO QHS #90 tabs 02/08/22 ondansetron 4 mg disintegrating 4 mg PO Q8H PRN nausea and 02/08/22 tablet vomiting #20 tabs pantoprazole 40 mg tablet,delayed 40 mg PO DAILY #90 tabs 02/08/22 release sucralfate 1 gram tablet 1 g PO BID #60 tabs 02/08/22 thiamine HCl (vitamin B1) 100 mg 100 mg PO DAILY #90 tabs 02/08/22 tablet valacyclovir 500 mg tablet 500 mg PO DAILY #90 tabs 02/08/22 (Valtrex) fluticasone propionate 50 2 spray NS daily prn #16 grams 03/06/22 mcg/actuation nasal spray,suspension budesonide 0.5 mg/2 mL suspension 0.5 mg (2 mL) inhalation DAILY #60 05/06/22 for nebulization (Pulmicort) mL melatonin 3 mg capsule 3 mg PO .pm PRN sleep #90 caps 05/12/22 pantoprazole 40 mg tablet,delayed 40 mg PO BID@0730,2000 #60 tabs 05/21/22 release lorazepam 1 mg tablet 1 mg PO QHS PRN sleep #20 tabs 07/08/22 cyanocobalamin (vitamin B-12) 500 1,000 mcg PO DAILY #180 tabs 07/10/22 mcg tablet (Vitamin B-12) ferrous sulfate 325 mg (65 mg 325 mg PO BID #180 tabs 07/10/22 iron) tablet furosemide 20 mg tablet 20 mg PO BID@0830,1600 #180 tabs 07/10/22 multivitamin (Multiple Vitamins 1 tab PO DAILY #90 tabs 07/10/22 tablet) quetiapine 25 mg tablet See Rx Instructions PO BID #60 tabs 07/10/22 spironolactone 50 mg tablet 50 mg PO BID #180 tabs 07/10/22 (Aldactone) venlafaxine 75 mg capsule,extended 75 mg PO DAILY #90 caps 07/10/22 release 24 hr albuterol sulfate 90 mcg/actuation 2 puff inhalation Q6H PRN 07/16/22 aerosol inhaler shortness of breath or wheezing #8.5 grams mirabegron 50 mg tablet,extended 50 mg PO DAILY #30 tabs 07/20/22 release 24 hr (Myrbetriq) ciprofloxacin HCl 250 mg tablet 250 mg PO BID #14 tabs 07/29/22 Allergies Allergy/AdvReac Type Severity Reaction Status Date / Time Penicillins Allergy Mild Rash Verified 07/28/22 15:58 ramipril Allergy Unknown ITCHING Verified 07/28/22 15:58 meperidine [From Demerol] AdvReac Severe Nausea Verified 07/28/22 15:58 bupropion AdvReac Mild GI upset Verified 07/28/22 15:58 AMBER Inhibitors AdvReac Unknown COUGH Verified 07/28/22 15:58 alendronate sodium AdvReac Unknown GI Distress Verified 07/28/22 15:58 clarithromycin AdvReac Unknown intolerant Verified 07/28/22 15:58 paroxetine AdvReac Unknown Diarrhea Verified 07/28/22 15:58 General Stated Complaint: Nausea/Vomit/Diar JORDAN: 3 Review of Systems Narrative: Last alcohol use Tuesday of this week. Nausea and vomiting at home, some loose stool. Upper epigastric pain. Seen in the emergency. Yesterday underwent paracentesis 2 days prior to that. Yesterday's work-up did involve CAT scan. She had a palliative care visit this morning. 8 systems were reviewed and otherwise negative PFSH All Active Problems (Updated 07/29/22 @ 18:02 by Moose Lafleur MD) Elevated troponin (Acute) Elevated bilirubin (Acute) Abdominal ascites (Acute) Vomiting (Acute) Dehydration (Acute) Mixed stress and urge urinary incontinence (Acute) Cough (Acute) Thyroid nodule (Acute) Pneumonia due to COVID-19 virus (Acute) Anxiety (Chronic) Adverse effect of metronidazole (Acute) Medication monitoring encounter (Acute) Advance care planning (Acute) Cirrhosis of liver with ascites (Acute) Animal bite of right hand with infection (Acute) Umbilical hernia (Acute) 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 ascites (Acute) Hyperbilirubinemia (Acute) Shortness of breath (Acute) Elevated blood pressure reading without diagnosis of hypertension (Acute) Left arm pain (Acute) Ambulatory dysfunction (Acute) Incontinence (Acute) Urge incontinence (Acute) Anorexia (Acute) Headache (Acute) Onychomycosis (Acute) Depression (Chronic) Chest pain (Acute) Foot pain, right (Acute) Tendinitis of left rotator cuff (Acute) Macrocytosis (Acute 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 Leukopenia (Acute) Headache (Acute) Epigastric abdominal pain (Acute) Calcific tendinitis of left shoulder (Acute) Pulmonary mass (Acute) spiculated mass Pneumonia (Acute) Depression with suicidal ideation (Acute) Alcohol abuse (Chronic) Diarrhea (Acute) Epigastric pain (Acute) Dehydration (Acute) Hypokalemia (Acute) Discharge planning issues (Acute) Palliative care patient (Acute) Difficult intravenous access (Acute) Multiple IV attempts, usually requires ultrasound placement. PTSD (post-traumatic stress disorder) (Acute) Anemia (Chronic) Depression (Chronic) Foot pain, right (Acute) T12 compression fracture (Acute) Presacral mass (Chronic) Deviated nasal septum (Acute) Frequent falls (Chronic) Head injury (Acute) Ambulatory dysfunction (Chronic) Shoulder pain, right (Chronic) DVT prophylaxis (Acute) Suicidal ideation (Acute) Dry eye (Acute) Pruritus (Acute) Dystrophic nail (Acute) AMBER (acute kidney injury) (Acute) Iron deficiency anemia (Chronic) Alcohol abuse (Chronic) Hypomagnesemia (Chronic) Discharge planning issues (Acute) UTI (urinary tract infection) (Acute) Fall (Acute) Atelectasis of left lung (Chronic) Advance directive on file (Acute) Nodule of upper lobe of right lung (Acute ~09/13/18) 09/13/18 [facility] ; 12mm SPICULATED -kb Cataract (Chronic 11/07/15) Hypertension (Chronic) high today; she will check readings at home Hyperlipidemia (Chronic) Back pain, chronic (Chronic) Depression (Chronic) Osteopenia (Chronic) Medical History Adjustment disorder with depressed mood Alcoholic ketosis Anemia Cervical radicular pain neck pain and [facility] 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) pls refrain from alcohol Chronic alcoholism she will not stop drinking unless she checks with me, so that we can help her avert withdrawal I do not think she is capable on her own--she would need placement to achieve required goal of 3 months of sobriety Chronic diarrhea Closed right humeral fracture Corneal ulcer, right (~08/23/18) 08/23/18; UV- Fracture of humerus, left, closed Genital herpes simplex recurrent gential; suppressive Valtrex GERD (gastroesophageal reflux disease) GI bleed (12/20/16) Hypertension Hypokalemia Hypomagnesemia Incidental lung nodule, greater than or equal to 8mm 1cm, spiculated, stable for many years, recommend f/u in 6 mo Multiple rib fractures 03/11/19 [facility] Non-cardiac chest pain (09/21/16) [facility] [place] 09/21/16 NEGATIVE MP Osteoarthritis Palliative care patient (03/21/17) Pancreatitis, alcoholic, acute Peripheral edema Photophobia of right eye Pleural effusion on left 03/11/19 [facility] Presacral mass (~09/15/18) 09/15/18 [facility] Sciatica right, epidural injuections [facility] Tubular adenoma of colon (01/28/17) Urinary incontinence 01/24/13 urethral suspension and sling at [facility] [place] (bladder suspension 1991) 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 Bladder repair. Repair bladder injury, simple Family History Mother No problems noted. Father , DROWNED at age 50. No problems noted. Sister Personal history of malignant neoplasm MELANOMA Sister No problems noted. Grandfather Personal history of malignant neoplasm STOMACH Grandfather Personal history of malignant neoplasm PROSTATE Grandmother Heart disease DC Acute ill-defined cerebrovascular disease Grandmother Personal history of malignant neoplasm UTERINE Aunt , DC Heart disease DC Aunt , DC Heart disease Brother No problems noted. Social History Smoking/Tobacco Use Status: Former Tobacco Use Quit Date: 08/05/20 Smoking risk assessment performed?: Yes Alcohol Intake: current Alcohol Intake frequency: 3 or more drinks per day Alcohol type: hard liquor Drug use: Never Substance use type: does not use Details: has not drank since tuesday Current gender identity: female Do you feel safe at home: Yes Do you feel safe in your relationship?: Yes Exam Narrative Exam Narrative: GEN: awake, alert, oriented 3. Pleasant, well groomed, interactive. HEAD: Normocephalic, atraumatic ENT: Mucous membranes moist, oropharynx unremarkable, External ear exam unremarkable EYES: PERRL, EOMI NECK: Full ROM, no CANDY, no menigismus CHEST/RESP: Nontender, clear to auscultation bilateral, no wheeze/rhonchi/rales CARDIOVASCULAR: Regular, borderline tachycardia, no murmur, rub shirin. 2+ Rad pulse bilateral ABDOMEN: Soft, minimal epigastric tenderness, no mass. +Bowel sounds EXT: Full ROM, no edema, no rash Neuro: Grossly normal neurologic exam, conversant, interactive. Psych: Speech fluent, thoughts congruent, affect normal Course Vital Signs Vital signs: Vital Signs Temperature 36.8 C 07/29/22 13:04 Pulse 103 H 07/29/22 13:04 Respiratory Rate 20 07/29/22 13:04 Blood Pressure 159/108 H 07/29/22 13:04 Pulse Oximetry 99 07/29/22 13:04 Temperature 36.8 C 07/29/22 13:04 Temperature Source Oral 07/29/22 13:04 Pulse 103 H 07/29/22 13:04 Respiratory Rate 20 07/29/22 13:04 Respiratory Effort Non-Labored 07/29/22 13:10 Blood Pressure 159/108 H 07/29/22 13:04 Blood Pressure Position Supine 07/29/22 13:04 Pulse Oximetry 99 07/29/22 13:04 Oxygen Delivery Method Room Air 07/29/22 13:04 Oxygen Flow Rate 0 07/29/22 13:04 PAWSS Have you Been Recently Intoxicated or Drunk Within the Last 30 days?: No Have you Ever Experienced Previous Episodes of Alcohol Withdrawal?: No Have you ever Experienced Withdrawal Seizures?: No Have you ever Experienced Delirium Tremens(DT)s?: No Have you ever undergone Alcohol Rehabilitation Treatment (i.e, inpt ot outpatient treatment programs)?: No Have you ever Experienced Blackouts?: No Have you ever Combined Alcohol with other Downers within the last 90 days?: No Have you ever Combined Alcohol with any other Substance of Abuse during the last 90 days?: No Result: 0
[2022-07-29 14:16] LABS: Abs Immature Grans 0.03 10^3/uL (0.0-0.06); Absolute Basophil Count 0.01 10^3/uL (0.0-0.2); Absolute Lymphocyte Count 0.79 10^3/uL (1.2-3.4); Absolute Monocyte Count 0.33 10^3/uL (0.1-0.8); Absolute Neutrophil Count 5.99 10^3/uL (1.2-6.7); Basophils % 0.1; HCT 34.4 % (36.0-46.0); HGB 11.6 g/dL (11.2-15.7); Immature Grans % 0.4; MCH 32.9 pg (27.0-33.0); MCHC 33.7 % (32.0-36.0); MCV 98 fL (80-95); MPV 8.7 fL (8.0-11.0); Monocytes % 4.6; Neutrophils % 83.9; Platelet Count 107 10^3/uL (130-400); RBC 3.53 10^6/uL (3.93-5.22); RDW 16.8 % (11.7-14.6); RDW-SD 59.4 fL; WBC 7.15 10^3/uL (4.4-10.8)
--- NOTE | 2022-07-29 14:30 | RT.EKG_ITS ---
APPROVED REPORT Exam: Resting ECG Reason for Exam: Vomiting Patient Location: E HR:107 bpm ECG Measurements Heart Rate 107 AXIS CO 175 P 55 QRSd 84 QRS -27 QT 386 T -3 QTc 516 Conclusion Sinus tachycardia. Inferior Q >35mS, II III aVF Prolonged QT interval...QTc >500mS
[2022-07-29 14:31] LABS: Lipase 58 U/L (73-393); Magnesium 1.1 mg/dL (1.8-2.4)
[2022-07-29 14:32] LABS: ETHANOL BLOOD < 3.0 mg/dL (<10)
[2022-07-29 14:37] LABS: ALT 36 U/L (14-59); AST 51 U/L (15-37); Albumin 3.4 g/dL (3.4-5.0); Alkaline Phosphatase 155 U/L (46-116); Anion Gap 8.5 mmol/L (3-11); BUN 11 mg/dL (7-18); Bilirubin, Total 2.7 mg/dL (0.2-1.0); CO2 27.5 mmol/L (21.0-32.0); CREATININE 1.2 mg/dL (0.55-1.02); Chloride 99 mmol/L (98-107); Estimated GFR 46.91 (mL/min/1.73m2); Glucose 154 mg/dL (74-106); Potassium 3.6 mmol/L (3.5-5.1); Sodium 135 mmol/L (136-145); Total Protein 6.4 g/dL (6.4-8.2)
[2022-07-29 14:38] LABS: Troponin I 68 ng/L (<or=60)
--- NOTE | 2022-07-29 15:20 | DI.RAD_ITS ---
Exam(s) XR CHEST 2V PA LATERAL EXAM: XR CHEST 2V PA LATERAL CLINICAL HISTORY: persistent cough TECHNIQUE: COMPARISON: CR,XR XR PORTABLE CHEST AP from 07/01/2022 FINDINGS: Multiple bilateral healed rib fractures noted. Cardiac size is at the upper limits of normal. Lungs appear clear. No consolidation. No pleural effusion. IMPRESSION: No evidence of acute process. RADIATION DOSE DELIVERED: Total DLP
[2022-07-29] MEDS: LORazepam 2 MG/ML VIAL 1 MG IVP (15:43)
[2022-07-29] MEDS: Ondansetron 4 MG/2 ML VIAL IVP (15:43)
[2022-07-29] MEDS: Pantoprazole 40 MG VIAL IVP (15:44)
[2022-07-29] MEDS: Aspirin E.C. 325 MG TABEC PO (15:46)
[2022-07-29] MEDS: MAGNESIUM SULFATE 2 GM/50 ML BAG IVPB ×2 (15:47→23:06)
[2022-07-29 17:38] LABS: Troponin I 63 ng/L (<or=60)
[2022-07-29] MEDS: Normal Saline 1,000 ML 150 ML IV ×2 (18:09→23:06)
[2022-07-29 18:11] LABS: Influenza A PCR Negative (Negative); Influenza B PCR Negative (Negative); RSV PCR Negative (Negative)
[2022-07-29 18:19] LABS: Source Nasopharynx
[2022-07-29 18:20] LABS: COVID-19 PCR Positive (Negative)
--- NOTE | 2022-07-29 21:38 | W.PM.HP.N ---
Date of service: 07/29/22 Time of Service: 21:38 Assessment and Plan Assessment and plan (1) Elevated troponin: Status: Acute Assessment and plan: I am concerned that Leticia's exertional epigastric pain and dyspnea with troponins that are newly elevated from yesterday represents acute coronary syndrome. Her EKG is not c/w STEMI. Unfortanately she has a high risk for GI bleed with cirrhosis, but I think we should still treat. Will monitor for blood loss. Given uncertainty will consult cardiology. 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 She understands this will worsen with alcohol use. She had ascites drained 06/25 and she does not need this again. (3) UTI (urinary tract infection): Status: Acute Assessment and plan: culture from 06/21 showed e. coli, stared on cipro per urology, continue Qualifiers: Hematuria presence: without hematuria Urinary tract infection type: acute cystitis Qualified Code(s): N30.00 - Acute cystitis without hematuria (4) Vomiting: Status: Acute Assessment and plan: Leticia has had this chronically, though this time as above there is concerned this is an element of ACS. Treat symptoms, also PPI. (5) Pneumonia due to COVID-19 virus: Status: Acute Assessment and plan: This was positive a month ago, so I don't think she poses any infection risk though she is still positive. (6) Hypomagnesemia: Status: Chronic Assessment and plan: THis is likey contributing to long QTc seen on EKG. Replace IV. (7) Alcohol abuse: Status: Chronic Assessment and plan: Chronic severe alcoholism. She saw palliative care this morning and offered hospice, declined. Continue to work with Leticia on plans to stay sober upon discharge. I don't see signs of withddrawal. If they develop, start CIWA. (8) DVT prophylaxis: Status: Acute Assessment and plan: on full dose LMWH (9) Discharge planning issues: Status: Acute Assessment and plan: Leticia is stable on medical floor, she is DNR/DNI History of Present Illness History of Present Illness Chief Complaint: epigastric pain Narrative: 77 yo F with chronic alcohol use disorder and alcoholic cirrhosis with many admissions at [facility] who presented to the emergency room for the 3rd time in 3 days with nausea, vomiting, and epigstric pain. This constellation of symptoms is the same as her typical on admission. This time it started about 3 days ago. Nausea, vomiting, and epigatric pain all started on Tuesday around the same time. This was the last day she drank alcohol. Pain is band-like epigastric around to her mid back on both sides. Can't eat due to the pain, though she feels a little better with medication in the ED and she would like to eat some pudding. She also feels more short of breath with exertion than usual, though she states she doesn't move much. She isn't sure how long she has had more SOB, but she thinks over a week. She was diagnosed with COVID-19 one month ago and treated at [facility]. About 10 weeks ago she was admitted with cholecystitis and underwent successful cholecystectomy. No history of significant alcohol withdrawal noted. Review of Systems Constitutional Constitutional: Denies chills, Denies fever(s), Denies headache(s) and Reports lethargy Eyes Eyes: Denies change in vision, Denies eye discharge and Reports photophobia ENT Ears, Nose, Mouth, and Throat: Denies dizziness, Denies headache(s), Denies nasal congestion, Denies nasal discharge and Denies sore throat Cardiovascular Cardiovascular: Denies chest pain, Denies edema, Denies palpitations, Reports dyspnea on exertion and Denies orthopnea Respiratory Respiratory: Denies cough, Denies hemoptysis, Denies excessive phlegm production, Reports dyspnea on exertion and Denies wheezing Gastrointestinal Gastrointestinal: Denies melena, Denies hematochezia, Denies coffee ground emesis, Reports loose stools and Denies hematemesis Genitourinary Genitourinary: Denies hematuria, Denies dysuria and Denies urinary incontinence Integumentary/Breasts Skin/Breast: Denies rash and Denies skin ulcer Neurologic Neurologic: Denies dizziness, Denies headache(s), Reports memory loss and Denies sensory deficit Psychiatric Psychiatric: Reports anxiety, Reports memory loss and Denies mood swings Endocrine Endocrine: Denies palpitations Hematologic/Lymphatic Hematologic/Lymphatic: Reports other (hasn't noted recent bleeding) Allergic/Immunologic Allergic/Immunologic: Denies wheezing PFSH All Active Problems Elevated troponin (Acute) Elevated bilirubin (Acute) Abdominal ascites (Acute) Vomiting (Acute) Dehydration (Acute) Mixed stress and urge urinary incontinence (Acute) Cough (Acute) Thyroid nodule (Acute) Pneumonia due to COVID-19 virus (Acute) Anxiety (Chronic) Adverse effect of metronidazole (Acute) Medication monitoring encounter (Acute) Advance care planning (Acute) Cirrhosis of liver with ascites (Acute) Animal bite of right hand with infection (Acute) Umbilical hernia (Acute) 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 ascites (Acute) Hyperbilirubinemia (Acute) Shortness of breath (Acute) Elevated blood pressure reading without diagnosis of hypertension (Acute) Left arm pain (Acute) Ambulatory dysfunction (Acute) Incontinence (Acute) Urge incontinence (Acute) Anorexia (Acute) Headache (Acute) Onychomycosis (Acute) Depression (Chronic) Chest pain (Acute) Foot pain, right (Acute) Tendinitis of left rotator cuff (Acute) Macrocytosis (Acute 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 Leukopenia (Acute) Headache (Acute) Epigastric abdominal pain (Acute) Calcific tendinitis of left shoulder (Acute) Pulmonary mass (Acute) spiculated mass Pneumonia (Acute) Depression with suicidal ideation (Acute) Alcohol abuse (Chronic) Diarrhea (Acute) Epigastric pain (Acute) Dehydration (Acute) Hypokalemia (Acute) Discharge planning issues (Acute) Palliative care patient (Acute) Difficult intravenous access (Acute) Multiple IV attempts, usually requires ultrasound placement. PTSD (post-traumatic stress disorder) (Acute) Anemia (Chronic) Depression (Chronic) Foot pain, right (Acute) T12 compression fracture (Acute) Presacral mass (Chronic) Deviated nasal septum (Acute) Frequent falls (Chronic) Head injury (Acute) Ambulatory dysfunction (Chronic) Shoulder pain, right (Chronic) DVT prophylaxis (Acute) Suicidal ideation (Acute) Dry eye (Acute) Pruritus (Acute) Dystrophic nail (Acute) AMBER (acute kidney injury) (Acute) Iron deficiency anemia (Chronic) Alcohol abuse (Chronic) Hypomagnesemia (Chronic) Discharge planning issues (Acute) UTI (urinary tract infection) (Acute) Fall (Acute) Atelectasis of left lung (Chronic) Advance directive on file (Acute) Nodule of upper lobe of right lung (Acute ~09/13/18) 09/13/18 [facility]; 12mm SPICULATED -kb Cataract (Chronic 11/07/15) Hypertension (Chronic) high today; she will check readings at home Hyperlipidemia (Chronic) Back pain, chronic (Chronic) Depression (Chronic) Osteopenia (Chronic) Medical History Adjustment disorder with depressed mood Alcoholic ketosis Anemia Cervical radicular pain neck pain and [facility]D [facility] 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) pls refrain from alcohol Chronic alcoholism she will not stop drinking unless she checks with me, so that we can help her avert withdrawal I do not think she is capable on her own--she would need placement to achieve required goal of 3 months of sobriety Chronic diarrhea Closed right humeral fracture Corneal ulcer, right (~08/23/18) 08/23/18; [facility] Fracture of humerus, left, closed Genital herpes simplex recurrent gential; suppressive Valtrex GERD (gastroesophageal reflux disease) GI bleed (12/20/16) Hypertension Hypokalemia Hypomagnesemia Incidental lung nodule, greater than or equal to 8mm 1cm, spiculated, stable for many years, recommend f/u in 6 mo Multiple rib fractures 03/11/19 [facility] Non-cardiac chest pain (09/21/16) [facility] 09/21/16 NEGATIVE MP Osteoarthritis Palliative care patient (03/21/17) Pancreatitis, alcoholic, acute Peripheral edema Photophobia of right eye Pleural effusion on left 03/11/19 [facility] Presacral mass (~09/15/18) 09/15/18 [facility] Sciatica right, epidural injuections [facility] Tubular adenoma of colon (01/28/17) Urinary incontinence 01/24/13 urethral suspension and sling at [facility] (bladder suspension 1991) 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 Bladder repair. Repair bladder injury, simple Family History Mother No problems noted. Father , DROWNED at age 50. No problems noted. Sister Personal history of malignant neoplasm MELANOMA Sister No problems noted. Grandfather Personal history of malignant neoplasm STOMACH Grandfather Personal history of malignant neoplasm PROSTATE Grandmother Heart disease [place] Acute ill-defined cerebrovascular disease Grandmother Personal history of malignant neoplasm UTERINE Aunt , [place] Heart disease [place] Aunt , [place] Heart disease Brother No problems noted. Social History Smoking/Tobacco Use Status: Former Tobacco Use Quit Date: 08/05/20 Smoking risk assessment performed?: Yes Alcohol Intake: current Alcohol Intake frequency: 3 or more drinks per day Alcohol type: hard liquor Drug use: Never Substance use type: does not use Details: has not drank since tuesday Current gender identity: female Do you feel safe at home: Yes Do you feel safe in your relationship?: Yes Meds Allergies and Home Medications Allergies Allergy/AdvReac Type Severity Reaction Status Date / Time Penicillins Allergy Mild Rash Verified 07/28/22 15:58 ramipril Allergy Unknown ITCHING Verified 07/28/22 15:58 meperidine [From Demerol] AdvReac Severe Nausea Verified 07/28/22 15:58 bupropion AdvReac Mild GI upset Verified 07/28/22 15:58 AMBER Inhibitors AdvReac Unknown COUGH Verified 07/28/22 15:58 alendronate sodium AdvReac Unknown GI Distress Verified 07/28/22 15:58 clarithromycin AdvReac Unknown intolerant Verified 07/28/22 15:58 paroxetine AdvReac Unknown Diarrhea Verified 07/28/22 15:58 Home Medications Medication Instructions Recorded Confirmed Type carboxymethylcellulose sodium 0.5 1 drp OU Q4H WHILE AWAKE #30 ea 06/20/19 07/29/22 Rx % eye drops in a dropperette (Refresh Plus) lifitegrast 5 % eye drops in a 1 drp ophthalmic (eye) BID 08/05/20 07/29/22 History dropperette (Xiidra) ipratropium 0.5 mg-albuterol 3 mg 3 ml inhalation Q6H PRN 12/25/21 07/29/22 History (2.5 mg base)/3 mL nebulization soln albuterol sulfate 90 mcg/actuation 2 puff inhalation QID PRN 02/08/22 07/29/22 Rx aerosol inhaler (Ventolin HFA) shortness of breath or wheezing #8.5 grams amlodipine 10 mg tablet 10 mg PO DAILY #90 tabs 02/08/22 07/29/22 Rx buspirone 5 mg tablet 5 mg PO BID #60 tabs 02/08/22 07/29/22 Rx folic acid 1 mg tablet 1 mg PO DAILY #90 tabs 02/08/22 07/29/22 Rx melatonin 3 mg capsule 6 mg PO HS #180 caps 02/08/22 07/29/22 Rx metoprolol tartrate 50 mg tablet 50 mg PO DAILY #90 tabs 02/08/22 07/29/22 Rx mirtazapine 7.5 mg tablet 7.5 mg PO QHS #90 tabs 02/08/22 07/29/22 Rx ondansetron 4 mg disintegrating 4 mg PO Q8H PRN nausea and 02/08/22 07/29/22 Rx tablet vomiting #20 tabs pantoprazole 40 mg tablet,delayed 40 mg PO DAILY #90 tabs 02/08/22 07/29/22 Rx release sucralfate 1 gram tablet 1 g PO BID #60 tabs 02/08/22 07/29/22 Rx thiamine HCl (vitamin B1) 100 mg 100 mg PO DAILY #90 tabs 02/08/22 07/29/22 Rx tablet valacyclovir 500 mg tablet 500 mg PO DAILY #90 tabs 02/08/22 07/29/22 Rx (Valtrex) fluticasone propionate 50 2 spray NS daily prn #16 grams 03/06/22 07/29/22 Rx mcg/actuation nasal spray,suspension budesonide 0.5 mg/2 mL suspension 0.5 mg (2 mL) inhalation DAILY #60 05/06/22 07/29/22 Rx for nebulization (Pulmicort) mL melatonin 3 mg capsule 3 mg PO .pm PRN sleep #90 caps 05/12/22 07/29/22 Rx pantoprazole 40 mg tablet,delayed 40 mg PO BID@0730,2000 #60 tabs 05/21/22 07/29/22 Rx release lorazepam 1 mg tablet 1 mg PO QHS PRN sleep #20 tabs 07/08/22 07/29/22 Rx cyanocobalamin (vitamin B-12) 500 1,000 mcg PO DAILY #180 tabs 07/10/22 07/29/22 Rx mcg tablet (Vitamin B-12) ferrous sulfate 325 mg (65 mg 325 mg PO BID #180 tabs 07/10/22 07/29/22 Rx iron) tablet furosemide 20 mg tablet 20 mg PO BID@0830,1600 #180 tabs 07/10/22 07/29/22 Rx multivitamin (Multiple Vitamins 1 tab PO DAILY #90 tabs 07/10/22 07/29/22 Rx tablet) quetiapine 25 mg tablet See Rx Instructions PO BID #60 tabs 07/10/22 07/29/22 Rx spironolactone 50 mg tablet 50 mg PO BID #180 tabs 07/10/22 07/29/22 Rx (Aldactone) venlafaxine 75 mg capsule,extended 75 mg PO DAILY #90 caps 07/10/22 07/29/22 Rx release 24 hr albuterol sulfate 90 mcg/actuation 2 puff inhalation Q6H PRN 07/16/22 07/29/22 Rx aerosol inhaler shortness of breath or wheezing #8.5 grams mirabegron 50 mg tablet,extended 50 mg PO DAILY #30 tabs 07/20/22 07/29/22 Rx release 24 hr (Myrbetriq) ciprofloxacin HCl 250 mg tablet 250 mg PO BID #14 tabs 07/29/22 07/29/22 Rx Exam Narrative Exam Narrative: GEN: Alert and oriented, pleasant and cooperative, but gives vague history. No acute distress at rest. HEENT: Head atraumatic. Conjunctiva clear, mild icterus. PEERL, EOMI. no rhinorrhea. MMM, OP benign. I do not appreciate elevation of JVP. Neck is supple with no masses or lymphadenopathy, trachea midline LUNGS: normal effort at rest. she is speaking in sentances. Lung clear bilaterally other than rales at right base (dependant on exam). CV: RRR with no murmurs, gallops, or rubs. ABD: +BS, softly distented with fluid wave. No large vessels or bruises visible. mild diffuse tenderness more in epigastrum. no rebound or guarding EXT: no cyanosis, clubbing, or edema MSK: No joint redness or swelling NEURO: CN 2-12 grossly intact. Normal movement of 4 extremities. Normal speech and coordination. no tremor or asterixis. SKIN: No rashes or open wounds. bruises on forearms PSYCH: normal mood and affect Results Imaging Abdomen CT scan report/results: report reviewed (Findings consistent with hepatic steatosis, cirrhosis, and ascites. No evidence of acute process..) EKG: report reviewed and image reviewed (no ST elevation, no signficant change from prior, but QTc >500) Labs Result diagrams: 07/29/22 13:40 07/29/22 13:40 Labs: Laboratory Results - last 24 hr 07/29/22 07/29/22 07/29/22 13:05 13:40 13:40 WBC 7.15 RBC 3.53 L Hgb 11.6 Hct 34.4 L MCV 98 H MCH 32.9 MCHC 33.7 RDW 16.8 H Plt Count 107 L MPV 8.7 Immature Gran % 0.4 Neutrophils % 83.9 Lymphocytes % 11.0 Monocytes % 4.6 Eosinophils % 0.0 Basophils % 0.1 Nucleated RBC % 0.0 Absolute Neutrophils 5.99 Absolute Lymphocytes 0.79 L Absolute Monocytes 0.33 Absolute Eosinophils 0.00 Absolute Basophils 0.01 Sodium Cancelled Potassium Cancelled Chloride Cancelled Carbon Dioxide Cancelled Anion Gap Cancelled BUN Cancelled Creatinine Cancelled Est GFR (CKD-EPI 2020) Cancelled Glucose Cancelled Calcium Cancelled Magnesium 1.1 L Total Bilirubin Cancelled AST Cancelled ALT Cancelled Alkaline Phosphatase Cancelled Troponin I Total Protein Cancelled Albumin Cancelled Lipase 58 Ethyl Alcohol < 3.0 COVID-19 Source SARS-CoV-2 (PCR) Influenza Type A (PCR) Influenza Type B (PCR) RSV (PCR) 07/29/22 07/29/22 07/29/22 13:40 16:15 17:12 WBC RBC Hgb Hct MCV MCH MCHC RDW Plt Count MPV Immature Gran % Neutrophils % Lymphocytes % Monocytes % Eosinophils % Basophils % Nucleated RBC % Absolute Neutrophils Absolute Lymphocytes Absolute Monocytes Absolute Eosinophils Absolute Basophils Sodium 135 L Potassium 3.6 D Chloride 99 Carbon Dioxide 27.5 Anion Gap 8.5 BUN 11 Creatinine 1.2 H Est GFR (CKD-EPI 2020) 46.91 Glucose 154 H Calcium 9.0 Magnesium Total Bilirubin 2.7 H AST 51 H ALT 36 Alkaline Phosphatase 155 H Troponin I 68 H* Cancelled 63 H* Total Protein 6.4 Albumin 3.4 Lipase Ethyl Alcohol COVID-19 Source SARS-CoV-2 (PCR) Influenza Type A (PCR) Influenza Type B (PCR) RSV (PCR) 07/29/22 17:24 WBC RBC Hgb Hct MCV MCH MCHC RDW Plt Count MPV Immature Gran % Neutrophils % Lymphocytes % Monocytes % Eosinophils % Basophils % Nucleated RBC % Absolute Neutrophils Absolute Lymphocytes Absolute Monocytes Absolute Eosinophils Absolute Basophils Sodium Potassium Chloride Carbon Dioxide Anion Gap BUN Creatinine Est GFR (CKD-EPI 2020) Glucose Calcium Magnesium Total Bilirubin AST ALT Alkaline Phosphatase Troponin I Total Protein Albumin Lipase Ethyl Alcohol COVID-19 Source Nasopharynx SARS-CoV-2 (PCR) Positive A Influenza Type A (PCR) Negative Influenza Type B (PCR) Negative RSV (PCR) Negative Last Vital Signs Temp 36.6 C 07/29/22 19:41 Pulse 102 H 07/29/22 19:41 Resp 22 07/29/22 19:41 BP 136/81 07/29/22 19:41 Pulse Ox 96 07/29/22 19:41 PAWSS Have you Been Recently Intoxicated or Drunk Within the Last 30 days?: No Have you Ever Experienced Previous Episodes of Alcohol Withdrawal?: No Have you ever Experienced Withdrawal Seizures?: No Have you ever Experienced Delirium Tremens(DT)s?: No Have you ever undergone Alcohol Rehabilitation Treatment (i.e, inpt ot outpatient treatment programs)?: No Have you ever Experienced Blackouts?: No Have you ever Combined Alcohol with other Downers within the last 90 days?: No Have you ever Combined Alcohol with any other Substance of Abuse during the last 90 days?: No Result: 0
[2022-07-29] MEDS: Melatonin 3 MG TAB 6 MG PO (21:40)
[2022-07-29] MEDS: LORazepam 1 MG TAB PO (21:40)
[2022-07-29] MEDS: Mirtazapine 15 MG TAB 7.5 MG PO (21:41)
[2022-07-29 21:43] LABS: Troponin I 63 ng/L (<or=60)
[2022-07-30] VITALS (64 sets, daily range): BP systolic 104–135; BP diastolic 64–72; PULSE 83–111; RESP 8–30; TEMP 36.1–36.7; O2SAT 95
[2022-07-30 06:33] LABS: Abs Immature Grans 0.02 10^3/uL (0.0-0.06); Absolute Basophil Count 0.01 10^3/uL (0.0-0.2); Absolute Lymphocyte Count 1.16 10^3/uL (1.2-3.4); Absolute Neutrophil Count 2.04 10^3/uL (1.2-6.7); Basophils % 0.3; HCT 34.3 % (36.0-46.0); HGB 11.1 g/dL (11.2-15.7); Immature Grans % 0.6; Lymphocytes % 32.9; MCH 32.9 pg (27.0-33.0); MCHC 32.4 % (32.0-36.0); MCV 102 fL (80-95); MPV 9.6 fL (8.0-11.0); Monocytes % 8.5; Neutrophils % 57.7; RBC 3.37 10^6/uL (3.93-5.22); RDW 16.7 % (11.7-14.6); RDW-SD 62.1 fL; WBC 3.53 10^3/uL (4.4-10.8)
[2022-07-30 07:11] LABS: Platelet Count 59 10^3/uL (130-400)
[2022-07-30 07:19] LABS: Diff Comment Diff Reviewed; Polychromasia Present
[2022-07-30] MEDS: QUEtiapine 25 MG TAB 12.5 MG PO ×2 (07:51→20:07)
[2022-07-30] MEDS: amLODIPine 10 MG TAB PO (07:52)
[2022-07-30] MEDS: Furosemide 20 MG TAB PO ×2 (07:53→15:42)
[2022-07-30] MEDS: Cyanocobalamin 500 MCG TAB 1000 MCG PO (07:53)
[2022-07-30] MEDS: Multivitamin TAB 1 TAB PO (07:53)
[2022-07-30] MEDS: Pantoprazole 40 MG TABCR PO ×2 (07:54→20:09)
[2022-07-30] MEDS: Folic Acid 1 MG TAB PO (07:54)
[2022-07-30] MEDS: Budesonide 0.5 MG/2 ML UPD VIAL IH (07:54)
[2022-07-30] MEDS: Ferrous Sulfate 325 MG TAB PO (07:54)
[2022-07-30] MEDS: Metoprolol CR 50 MG TABCR PO (07:55)
[2022-07-30] MEDS: Venlafaxine 75 MG CAPCR PO (07:55)
[2022-07-30] MEDS: busPIRone 5 MG TAB PO ×2 (07:56→20:08)
[2022-07-30] MEDS: Clopidogrel 75 MG TAB PO (07:57)
[2022-07-30] MEDS: Spironolactone 50 MG TAB PO ×2 (07:57→20:09)
[2022-07-30] MEDS: Aspirin E.C. 81 MG TABEC PO (07:58)
[2022-07-30] MEDS: Sucralfate 1 GM TAB PO ×2 (07:58→20:09)
[2022-07-30] MEDS: Refresh PLUS Eye Drops 0.4ml OU ×5 (07:59→23:28)
[2022-07-30] MEDS: Thiamine 100 MG TAB PO (07:59)
--- NOTE | 2022-07-30 08:12 | W.CARDCONSUL ---
Date of service: 07/30/22 Time of Service: 08:12 History of Present Illness History of Present Illness Chief Complaint: Epigastric pain Narrative: This is a 77-year-old woman presenting for 1 of multiple admissions here at [facility]. A consultation was requested to address several points, per Dr. Morelos. He questions whether the patient's borderline troponin represents acute coronary syndrome and whether or not the patient should be continued on dual antiplatelet therapy, possibly to consider a stress test Patient's medical record both here and at [facility] was reviewed in detail. Patient was not interviewed or examined. Her EKGs were reviewed My impression is that this is NOT acute coronary syndrome. Her troponins are very unimpressive and flat; I would consider them nondiagnostic and not particularly concerning. Her EKG shows no acute changes. She has significant thrombocytopenia and I think dual antiplatelet therapy carries significant risk of bleeding given her other comorbidities. I would recommend discontinuation of clopidogrel. Low-dose aspirin can be continued unless she has evidence of bleeding I would not strongly consider a stress test unless true clinical concerns for a cardiac etiology exist. At present I do not see any as per the medical record. Would she be a candidate for left heart catheterization? And if she had an intervention , dual antiplatelet therapy again carries significant risks. I would advise against doing the stress test at present unless new clinical concerns or findings arise [facility], [facility] All Active Problems Elevated troponin (Acute) Elevated bilirubin (Acute) Abdominal ascites (Acute) Vomiting (Acute) Dehydration (Acute) Mixed stress and urge urinary incontinence (Acute) Cough (Acute) Thyroid nodule (Acute) Pneumonia due to COVID-19 virus (Acute) Anxiety (Chronic) Adverse effect of metronidazole (Acute) Medication monitoring encounter (Acute) Advance care planning (Acute) Cirrhosis of liver with ascites (Acute) Animal bite of right hand with infection (Acute) Umbilical hernia (Acute) 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 ascites (Acute) Hyperbilirubinemia (Acute) Shortness of breath (Acute) Elevated blood pressure reading without diagnosis of hypertension (Acute) Left arm pain (Acute) Ambulatory dysfunction (Acute) Incontinence (Acute) Urge incontinence (Acute) Anorexia (Acute) Headache (Acute) Onychomycosis (Acute) Depression (Chronic) Chest pain (Acute) Foot pain, right (Acute) Tendinitis of left rotator cuff (Acute) Macrocytosis (Acute 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 Leukopenia (Acute) Headache (Acute) Epigastric abdominal pain (Acute) Calcific tendinitis of left shoulder (Acute) Pulmonary mass (Acute) spiculated mass Pneumonia (Acute) Depression with suicidal ideation (Acute) Alcohol abuse (Chronic) Diarrhea (Acute) Epigastric pain (Acute) Dehydration (Acute) Hypokalemia (Acute) Discharge planning issues (Acute) Palliative care patient (Acute) Difficult intravenous access (Acute) Multiple IV attempts, usually requires ultrasound placement. PTSD (post-traumatic stress disorder) (Acute) Anemia (Chronic) Depression (Chronic) Foot pain, right (Acute) T12 compression fracture (Acute) Presacral mass (Chronic) Deviated nasal septum (Acute) Frequent falls (Chronic) Head injury (Acute) Ambulatory dysfunction (Chronic) Shoulder pain, right (Chronic) DVT prophylaxis (Acute) Suicidal ideation (Acute) Dry eye (Acute) Pruritus (Acute) Dystrophic nail (Acute) AMBER (acute kidney injury) (Acute) Iron deficiency anemia (Chronic) Alcohol abuse (Chronic) Hypomagnesemia (Chronic) Discharge planning issues (Acute) UTI (urinary tract infection) (Acute) Fall (Acute) Atelectasis of left lung (Chronic) Advance directive on file (Acute) Nodule of upper lobe of right lung (Acute ~09/13/18) 09/13/18 [facility]; 12mm SPICULATED -kb Cataract (Chronic 11/07/15) Hypertension (Chronic) high today; she will check readings at home Hyperlipidemia (Chronic) Back pain, chronic (Chronic) Depression (Chronic) Osteopenia (Chronic) Medical History Adjustment disorder with depressed mood Alcoholic ketosis Anemia Cervical radicular pain neck pain and DJD [facility] 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) pls refrain from alcohol Chronic alcoholism she will not stop drinking unless she checks with me, so that we can help her avert withdrawal I do not think she is capable on her own--she would need placement to achieve required goal of 3 months of sobriety Chronic diarrhea Closed right humeral fracture Corneal ulcer, right (~08/23/18) 08/23/18; [facility] Fracture of humerus, left, closed Genital herpes simplex recurrent gential; suppressive Valtrex GERD (gastroesophageal reflux disease) GI bleed (12/20/16) Hypertension Hypokalemia Hypomagnesemia Incidental lung nodule, greater than or equal to 8mm 1cm, spiculated, stable for many years, recommend f/u in 6 mo Multiple rib fractures 03/11/19 [facility] Non-cardiac chest pain (09/21/16) [facility] 09/21/16 NEGATIVE MP Osteoarthritis Palliative care patient (03/21/17) Pancreatitis, alcoholic, acute Peripheral edema Photophobia of right eye Pleural effusion on left 03/11/19 [facility] Presacral mass (~09/15/18) 09/15/18 [facility] Sciatica right, epidural injuections [facility] Tubular adenoma of colon (01/28/17) Urinary incontinence 01/24/13 urethral suspension and sling at [facility] [place] (bladder suspension 1991) 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 Bladder repair. Repair bladder injury, simple Family History Mother No problems noted. Father , DROWNED at age 50. No problems noted. Sister Personal history of malignant neoplasm MELANOMA Sister No problems noted. Grandfather Personal history of malignant neoplasm STOMACH Grandfather Personal history of malignant neoplasm PROSTATE Grandmother Heart disease [place] Acute ill-defined cerebrovascular disease Grandmother Personal history of malignant neoplasm UTERINE Aunt , [place] Heart disease VT Aunt , [place] Heart disease Brother No problems noted. Social History Smoking/Tobacco Use Status: Former Tobacco Use Quit Date: 08/05/20 Smoking risk assessment performed?: Yes Alcohol Intake: current Alcohol Intake frequency: 3 or more drinks per day Alcohol type: hard liquor Drug use: Never Substance use type: does not use Details: has not drank since tuesday Current gender identity: female Do you feel safe at home: Yes Do you feel safe in your relationship?: Yes Results Last Vital Signs Temp 36.6 C 07/29/22 19:41 Pulse 110 H 07/30/22 00:00 Resp 22 07/29/22 20:01 BP 138/63 07/29/22 20:01 Pulse Ox 98 07/29/22 20:01 Labs Result diagrams: 07/30/22 05:40 07/29/22 13:40 Labs: Laboratory Results - last 24 hr 07/29/22 07/29/22 07/29/22 13:05 13:40 13:40 WBC 7.15 RBC 3.53 L Hgb 11.6 Hct 34.4 L MCV 98 H MCH 32.9 MCHC 33.7 RDW 16.8 H Plt Count 107 L MPV 8.7 Immature Gran % 0.4 Neutrophils % 83.9 Lymphocytes % 11.0 Monocytes % 4.6 Eosinophils % 0.0 Basophils % 0.1 Nucleated RBC % 0.0 Absolute Neutrophils 5.99 Absolute Lymphocytes 0.79 L Absolute Monocytes 0.33 Absolute Eosinophils 0.00 Absolute Basophils 0.01 RBC Morphology Polychromasia Sodium Cancelled Potassium Cancelled Chloride Cancelled Carbon Dioxide Cancelled Anion Gap Cancelled BUN Cancelled Creatinine Cancelled Est GFR (CKD-EPI 2020) Cancelled Glucose Cancelled Calcium Cancelled Magnesium 1.1 L Total Bilirubin Cancelled AST Cancelled ALT Cancelled Alkaline Phosphatase Cancelled Troponin I Total Protein Cancelled Albumin Cancelled Lipase 58 Ethyl Alcohol < 3.0 COVID-19 Source SARS-CoV-2 (PCR) Influenza Type A (PCR) Influenza Type B (PCR) RSV (PCR) 07/29/22 07/29/22 07/29/22 13:40 16:15 17:12 WBC RBC Hgb Hct MCV MCH MCHC RDW Plt Count MPV Immature Gran % Neutrophils % Lymphocytes % Monocytes % Eosinophils % Basophils % Nucleated RBC % Absolute Neutrophils Absolute Lymphocytes Absolute Monocytes Absolute Eosinophils Absolute Basophils RBC Morphology Polychromasia Sodium 135 L Potassium 3.6 D Chloride 99 Carbon Dioxide 27.5 Anion Gap 8.5 BUN 11 Creatinine 1.2 H Est GFR (CKD-EPI 2020) 46.91 Glucose 154 H Calcium 9.0 Magnesium Total Bilirubin 2.7 H AST 51 H ALT 36 Alkaline Phosphatase 155 H Troponin I 68 H* Cancelled 63 H* Total Protein 6.4 Albumin 3.4 Lipase Ethyl Alcohol COVID-19 Source SARS-CoV-2 (PCR) Influenza Type A (PCR) Influenza Type B (PCR) RSV (PCR) 07/29/22 07/29/22 07/30/22 17:24 21:15 05:40 WBC RBC Hgb Hct MCV MCH MCHC RDW Plt Count MPV Immature Gran % Neutrophils % Lymphocytes % Monocytes % Eosinophils % Basophils % Nucleated RBC % Absolute Neutrophils Absolute Lymphocytes Absolute Monocytes Absolute Eosinophils Absolute Basophils RBC Morphology Polychromasia Sodium Cancelled Potassium Cancelled Chloride Cancelled Carbon Dioxide Cancelled Anion Gap Cancelled BUN Cancelled Creatinine Cancelled Est GFR (CKD-EPI 2020) Cancelled Glucose Cancelled Calcium Cancelled Magnesium Cancelled Total Bilirubin Cancelled AST Cancelled ALT Cancelled Alkaline Phosphatase Cancelled Troponin I 63 H* Total Protein Cancelled Albumin Cancelled Lipase Ethyl Alcohol COVID-19 Source Nasopharynx SARS-CoV-2 (PCR) Positive A Influenza Type A (PCR) Negative Influenza Type B (PCR) Negative RSV (PCR) Negative 07/30/22 05:40 WBC 3.53 L RBC 3.37 L Hgb 11.1 L Hct 34.3 L MCV 102 H D MCH 32.9 MCHC 32.4 RDW 16.7 H Plt Count 59 L MPV 9.6 Immature Gran % 0.6 Neutrophils % 57.7 Lymphocytes % 32.9 Monocytes % 8.5 Eosinophils % 0.0 Basophils % 0.3 Nucleated RBC % 0.0 Absolute Neutrophils 2.04 Absolute Lymphocytes 1.16 L Absolute Monocytes 0.30 Absolute Eosinophils 0.00 Absolute Basophils 0.01 RBC Morphology See Below Polychromasia Present Sodium Potassium Chloride Carbon Dioxide Anion Gap BUN Creatinine Est GFR (CKD-EPI 2020) Glucose Calcium Magnesium Total Bilirubin AST ALT Alkaline Phosphatase Troponin I Total Protein Albumin Lipase Ethyl Alcohol COVID-19 Source SARS-CoV-2 (PCR) Influenza Type A (PCR) Influenza Type B (PCR) RSV (PCR)
[2022-07-30] MEDS: Mirabegron 50 MG TABCR PO (09:03)
[2022-07-30] MEDS: Ciprofloxacin 250 MG TAB PO ×2 (09:04→20:09)
[2022-07-30] MEDS: valACYclovir 500 MG TAB PO (09:04)
--- NOTE | 2022-07-30 10:24 | W.ANESVAS ---
Midline Placement Date Performed: 07/30/22 Procedure Time: 10:00 Requesting Provider: Laly Dumont Procedure Location: Intensive Care Unit Sedation Given (Indicate Dose Given): No Sedation given Patient Mental Status: Awake Sterility: Hand Hygiene, Surgical Cap, Surgical Mask, Sterile Gloves, Sterile Drape/Sheet and Chlorhexidine Laterality: Left Insertion Site: Other (Cubital) Midline Device: PowerGlide Pro 20G Catheter Length: 10 cm Midline Procedure Procedure: 1% Lidocaine to skin and subcutaneous tissue with 25g needle, Vessel accessed with needle, Vessel accessed with catheter over needle, Guidewire placed with ease, Catheter placed without resistance and Guidewire removed Dressing: Tegaderm Applied, Statlock Applied and Mastisol Used Blood Return: Present Flushes: Easily Ultrasound: Sterile probe cover and gel used Ultrasound Image Saved?: Yes Number of Attempts (See previous attempts in note section): 1 Procedure Tolerated: No Complications Procedure Outcome: Successful Performed By: Sujey Key
[2022-07-30 10:47] LABS: INR 1.2 (0.9-1.1); Prothrombin Time 11.6 sec (9.3-11.0)
[2022-07-30 11:01] LABS: ALT 37 U/L (14-59); AST 76 U/L (15-37); Albumin 2.5 g/dL (3.4-5.0); Alkaline Phosphatase 117 U/L (46-116); Anion Gap 7.5 mmol/L (3-11); BUN 7 mg/dL (7-18); Bilirubin, Total 1.6 mg/dL (0.2-1.0); CO2 26.5 mmol/L (21.0-32.0); CREATININE 1.1 mg/dL (0.55-1.02); Calcium 8.3 mg/dL (8.5-10.1); Chloride 103 mmol/L (98-107); Estimated GFR 52.08 (mL/min/1.73m2); Glucose 169 mg/dL (74-106); Magnesium 2.2 mg/dL (1.8-2.4); Sodium 137 mmol/L (136-145); Total Protein 4.9 g/dL (6.4-8.2); Troponin I < 50 ng/L (<or=60)
[2022-07-30 11:02] LABS: Potassium 2.9 mmol/L (3.5-5.1)
[2022-07-30] MEDS: POTASSIUM CHLORIDE 20 MEQ/100 ML BAG 50 MEQ IVPB ×3 (11:23→16:07)
[2022-07-30] MEDS: Normal Saline Flush 10 ML SYR IVP ×2 (11:24→23:27)
--- NOTE | 2022-07-30 12:13 | PHACLINREV_ITS ---
Pharmacy Admission Review - Admission Clinical Review (Last Reviewed 07/30/22 @ 08:17 by Dorota Duncan MD) Elevated troponin (Acute) Vomiting (Acute) Pneumonia due to COVID-19 virus (Acute) Cirrhosis of liver with ascites (Acute) DVT prophylaxis (Acute) Discharge planning issues (Acute) UTI (urinary tract infection) (Acute) Penicillins Allergy (Mild, Verified 07/28/22 15:58) Rash ramipril Allergy (Unknown, Verified 07/28/22 15:58) ITCHING meperidine [From Demerol] Adverse Reaction (Severe, Verified 07/28/22 15:58) Nausea bupropion Adverse Reaction (Mild, Verified 07/28/22 15:58) GI upset AMBER Inhibitors Adverse Reaction (Unknown, Verified 07/28/22 15:58) COUGH alendronate sodium Adverse Reaction (Unknown, Verified 07/28/22 15:58) GI Distress clarithromycin Adverse Reaction (Unknown, Verified 07/28/22 15:58) intolerant paroxetine Adverse Reaction (Unknown, Verified 07/28/22 15:58) Diarrhea Resuscitation Status DNR/DNI Height 5 ft 1 in Weight 66.633 kg - Renal Dosing Renal Dosing: BUN 7 mg/dL (7-18) 07/30/22 10:10 Creatinine 1.1 mg/dL (0.55-1.02) H 07/30/22 10:10 Medications needing adjustments: Reviewed (crcl ~38, current meds ok - monitor for change in renal function, addition of new meds) List of meds needing interventions: cipro already renally dosed (250 mg BID for crcl 30-50) - Anticoagulation Anticoagulation: Hgb 11.1 g/dL (11.2-15.7) L 07/30/22 05:40 Hct 34.3 % (36.0-46.0) L 07/30/22 05:40 Plt Count 59 10^3/uL (130-400) L 07/30/22 05:40 INR 1.2 (0.9-1.1) H 07/30/22 10:10 Creatinine 1.1 mg/dL (0.55-1.02) H 07/30/22 10:10 DVT Prophylaxis: Reviewed Medications: Aspirin Therapeutic Anticoagulation: Reviewed (aspirin & plavix. enoxaparin therapeutic dose (1 mg/kg) ordered but has since been dc'd (did not receive a dose)) Medications: Aspirin (on dual anti-platelet therapy aspirin & plavix - ?dc plavix d/t thrombocytopenia (per cardiology Dr. Duncan recommendation). platelets = 59 (from 107 yesterday) - baseline appears to be in 100s) - Opiate Usage Evaluate Pain Scale/Pains Meds: N/A (not on any opiates/pain meds) - Relevant Labs Sodium 137 mmol/L (136-145) 07/30/22 10:10 Potassium 2.9 mmol/L (3.5-5.1) L 07/30/22 10:10 Chloride 103 mmol/L (98-107) 07/30/22 10:10 Magnesium 2.2 mg/dL (1.8-2.4) 07/30/22 10:10 Electrolytes, C-Reactive P, ESR: Reviewed (k = 2.9, has 3x20 mEq IV ordered for today, Mag = 2.2, received 4g IV yesterday) - DM Control DM Control: Glucose 169 mg/dL (74-106) H 07/30/22 10:10 DM Control: Reviewed (no diabetes diagnosis however the majority of glucose readings (this visit and past) have been slightly elevated (mostly mid to high 100s), last a1c = 5.0% apr 2020) - Cardiac Review Cardiac Review: Troponin I < 50 ng/L (<or=60) 07/30/22 10:10 BP, HR, EF%: Reviewed (troponin elevated yesterday (68 then 63), now <50. lovenox 1 mg/kg BID ordered last night, has since been dc'd) - Qtc Review QTc: Reviewed (*QTc on 07/29/22 = 516* - prior (07/28 = 481). other EKG's on file have showing QTc high 400s) If Elevated, List meds needing intervention: on a quinolone (cipro), quetiapine (low dose: 12.5 mg BID), ondansetron 4 mg q8h prn (has only received a couple doses) -- meds as is should be fine but keep close eye on dose changes or addition of any other med with potential to prolong the QT - IV to PO Switch IV Medications: Reviewed (potassium IV otherwise on PO meds) - Home Meds Home Med List reviewed: Reviewed Relevent Home Meds Not ordered & why?: on metoprolol tartrate at home, metoprolol succ ordered here (has been tachycardic). She will need to bring in her own Xiidra eye drops if needed while here - Current meds Current Medication Order Review: Reviewed (new meds: atorvastatin 80 mg, clopido grel (thrombocytopenia - dc?)) - Comments Comments/Follow Ups: watch: renal function, blood sugars, consider ordering a1c, QT Antibiotic Review - Pharmacy Antibiotic Review Pharmacy Antibiotic Activity: Reviewed, no change (cipro for UTI - appropriate per sensitivities from 07/20. duration?)
[2022-07-30 12:30] LABS: Lab Add On Test DONE
--- NOTE | 2022-07-30 13:31 | CHAPLAIN ---
Leticia was tucked in, sleeping when I visited. She woke up as I arrived. Leticia is well known to staff from previous admissions. She said she was tired, and that if she shouldn't have been sent home from the ED the first time she was there. She was discharged from the ED a day or so ago and then returned yesterday and was admitted. I will continue to visit.
[2022-07-30] MEDS: Ondansetron O.D.T. 4 MG TABEF PO (14:07)
--- NOTE | 2022-07-30 15:10 | PDOC.CMIN ---
- If Service Date Differs Date of service: 07/30/22 Time of Service: 15:10 Care Management Initial Assess REASON FOR HOSPITALIZATION:: Elevated troponin PAST MEDICAL HISTORY/PAST SURGICAL HISTORY:: Medical History . Adjustment disorder with depressed mood. Alcoholic ketosis. Anemia. Cervical radicular pain. neck pain and DJD. [facility]. 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). pls refrain from alcohol. Chronic alcoholism. she will not stop drinking unless she checks with me, so that we can help her avert withdrawal. I do not think she is capable on her own--she would need placement to achieve required goal of 3 months of sobriety. Chronic diarrhea. Closed right humeral fracture. Corneal ulcer, right (~08/23/18). 08/23/18; [facility]. Fracture of humerus, left, closed. Genital herpes simplex. recurrent gential; suppressive Valtrex. GERD (gastroesophageal reflux disease). GI bleed (12/20/16). Hypertension. Hypokalemia. Hypomagnesemia. Incidental lung nodule, greater than or equal to 8mm. 1cm, spiculated, stable for many years, recommend f/u in 6 mo. Multiple rib fractures. 03/11/19 [facility]. Non-cardiac chest pain (09/21/16). [facility] [place] NEGATIVE MP. Osteoarthritis. Palliative care patient (03/21/17). Pancreatitis, alcoholic, acute. Peripheral edema. Photophobia of right eye. Pleural effusion on left. 03/11/19 [facility]. 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 09/15/[address] [facility]. Sciatica. right, epidural injuections. [facility]. Tubular adenoma of colon (01/28/17). Urinary incontinence. 01/24/13 urethral suspension [place] [facility] suspension 1991). Vision loss of right eye. 08/17/18;[facility]. Wernicke encephalopathy. Surgical History . Colonoscopy - MAC (01/28/17). EGD - MAC (12/20/16). History of bilateral ligation of fallopian tubes. History of Surgical Procedure. a. Bladder repair. Repair bladder injury, simple PREVIOUS FUNCTIONAL STATUS/SOCIAL/FAMILY SUPPORTS:: Leticia lives alone in her home in [place] with her dog and cats. She has a sister who takes care of her animals when she is hospitalized, and a homemaker, Marry, who visits her 3x/week for 2 hrs at a time. Her son Seth is her DPOA, although he lives in [place]. ADVANCE DIRECTIVES:: [employer] on file. Son, Seth, listed as agent and DPOA. Has patient been provided with info about the portal/API?: Yes Did the patient sign up for the portal?: Yes CODE STATUS:: DNR/DNI INSURANCE COVERAGE / FINANCIAL ISSUES:: [facility] MCR replacement CURRENT HOME/COMMUNITY SERVICES/EQUIPMENT:: Leticia owns a walker, a cane, and a toilet seat riser. She has a caregiver three days a week for two hours per day, in addition to MOW. PRIMARY CARE PHYSICIAN:: Lavelle Galindo POTENTIAL DISCHARGE NEEDS:: Evaluations for further needs, follow up appointments. PATIENT/FAMILY EDUCATION NEEDS:: Review of discharge instructions regarding medications, activity level, and follow up plan of care, and discussion of Ask Me Three. ANTICIPATED BARRIERS TO DISCHARGE:: None identified. TRANSPORTATION:: [facility] PLAN:: Leticia will be discharged home when medically cleared by provider. She will follow up with her community providers and plan of care as directed. Leticia will transport home via RCT private vehicle coordinated by CM. CM will continue to support Leticia and any discharge planning needs.
--- NOTE | 2022-07-30 15:43 | PGE_ITS ---
Date of Service Date of service: 07/30/22 Time of Service: 15:43 Assessment and Plan Assessment and plan (1) Elevated troponin: Status: Acute Assessment and plan: Evaluated by cardiology. Not felt to be due to ACS. Even if there were a coronary lesion, I agree that the patient's thrombocytopenia makes it dangerous to treat. Continue asa, statin. D/c plavix. Lovenox d/c'ed (and HIT panel pending). Continue cardiac monitoring for now. Will obtain an echocardiogram. (2) Thrombocytopenia: Status: Chronic Assessment and plan: I suspect that this is due to YOBANI + lovenox. ?HIT. Less likely due to splenic sequestration/cirrhosis/covid-19 because of the clinical scenario when this occured. Lovenox and plavix d/c'ed. Continue asa. Await HIT panel. Monitor plts. Avoid chemical DVT ppx. (3) Cirrhosis of liver with ascites: Status: Acute Assessment and plan: I spent time talking to Leticia about her need to quit drinking. She states she is really trying. She cites her animals to live for. I would like to re-invite palliative care to see her. S/p parancethesis on 06/25 - agree that she does not need it at this time. Continue furosemide and spironolactone. (4) UTI (urinary tract infection): Status: Acute Assessment and plan: Prior to admission, due to E. Coli. She had a negative UA since (on 07/20/22). Will recheck UA/C&S. Continue cipro for now. Qualifiers: Urinary tract infection type: acute cystitis Hematuria presence: without hematuria Qualified Code(s): N30.00 - Acute cystitis without hematuria (5) Vomiting: Status: Acute Assessment and plan: Remains nauseated. At this point, troponins have normalized and the nausea persists. I suspect this is alcoholic gastritis. Not clinically pancreatitis. Continue PPI, carafate, prn ozfran and tigan. A number of Leticia's medications can cause nausea, including valtrex. Will find out what the indication for it was. Long COVID can also present as nausea. (6) Pneumonia due to COVID-19 virus: Status: Ruled-out Assessment and plan: residual covid-19 positivity. Not currently clinically ill with COVID-19. Ok to remain off of precautions. (7) Hypomagnesemia: Status: Chronic Assessment and plan: Repleted, recheck in am. Continue cardiac monitoring to monitor QTc (prolonged on admission). (8) Hypokalemia: Status: Acute Assessment and plan: Replete. Recheck in am. (9) Alcohol abuse: Status: Chronic Assessment and plan: Chronic alcoholism with alcoholic cirrhosis. Advised abstinence. Patient appears interested. I think she should be again provided with resources in the community. Discussed with care management, who will contact a defensive line coach. Palliative care reconsulted. Monitor for signs of w/d. Continue MVI/thiamine. (10) DVT prophylaxis: Status: Acute Assessment and plan: Chemical DVT ppx d/c'ed due to worsening thrombocytopenia. SCDs. (11) Discharge planning issues: Status: Acute Assessment and plan: DNR/DNI C/s PT. C/s palliative care Subjective Subjective Interval history since last seen: Leticia states that she is nauseated. She continues to report R subcostal pain, not so much on the left. She denies dizziness unless moving (sitting to standing or bending down). She denies shortness of breath unless moving. She does not have chest pain right now, but does endorse shooting L-sided chest pains occasionally. Exam Narrative Exam Narrative: General: Pleaseant elderly female who appears comfortable in bed, A&Ox3, NAD HEENT: EOMI, MMM Heart: RRR, no m/r/g Lungs: CTAB Abdomen: soft, tender in RUQ, nondistended Extremities: no edema BLEs, 2+ pedal pulses B Objective Last Vital Signs Temp 36.1 C L 07/30/22 12:14 Pulse 90 07/30/22 12:00 Resp 17 07/30/22 12:01 BP 116/65 07/30/22 12:00 Pulse Ox 98 07/29/22 20:01 Laboratory Results - last 24 hr 07/29/22 07/29/22 07/29/22 17:12 17:24 21:15 WBC RBC Hgb Hct MCV MCH MCHC RDW Plt Count MPV Immature Gran % Neutrophils % Lymphocytes % Monocytes % Eosinophils % Basophils % Nucleated RBC % Absolute Neutrophils Absolute Lymphocytes Absolute Monocytes Absolute Eosinophils Absolute Basophils RBC Morphology Polychromasia PT INR Sodium Potassium Chloride Carbon Dioxide Anion Gap BUN Creatinine Est GFR (CKD-EPI 2020) Glucose Calcium Magnesium Total Bilirubin AST ALT Alkaline Phosphatase Troponin I 63 H* 63 H* Total Protein Albumin COVID-19 Source Nasopharynx SARS-CoV-2 (PCR) Positive A Influenza Type A (PCR) Negative Influenza Type B (PCR) Negative RSV (PCR) Negative Add-On Test Request 07/30/22 07/30/22 07/30/22 05:40 05:40 10:10 WBC 3.53 L RBC 3.37 L Hgb 11.1 L Hct 34.3 L MCV 102 H D MCH 32.9 MCHC 32.4 RDW 16.7 H Plt Count 59 L MPV 9.6 Immature Gran % 0.6 Neutrophils % 57.7 Lymphocytes % 32.9 Monocytes % 8.5 Eosinophils % 0.0 Basophils % 0.3 Nucleated RBC % 0.0 Absolute Neutrophils 2.04 Absolute Lymphocytes 1.16 L Absolute Monocytes 0.30 Absolute Eosinophils 0.00 Absolute Basophils 0.01 RBC Morphology See Below Polychromasia Present PT 11.6 H INR 1.2 H Sodium Cancelled Potassium Cancelled Chloride Cancelled Carbon Dioxide Cancelled Anion Gap Cancelled BUN Cancelled Creatinine Cancelled Est GFR (CKD-EPI 2020) Cancelled Glucose Cancelled Calcium Cancelled Magnesium Cancelled Total Bilirubin Cancelled AST Cancelled ALT Cancelled Alkaline Phosphatase Cancelled Troponin I Total Protein Cancelled Albumin Cancelled COVID-19 Source SARS-CoV-2 (PCR) Influenza Type A (PCR) Influenza Type B (PCR) RSV (PCR) Add-On Test Request 07/30/22 07/30/22 10:10 Unknown WBC RBC Hgb Hct MCV MCH MCHC RDW Plt Count MPV Immature Gran % Neutrophils % Lymphocytes % Monocytes % Eosinophils % Basophils % Nucleated RBC % Absolute Neutrophils Absolute Lymphocytes Absolute Monocytes Absolute Eosinophils Absolute Basophils RBC Morphology Polychromasia PT INR Sodium 137 Potassium 2.9 L Chloride 103 Carbon Dioxide 26.5 Anion Gap 7.5 BUN 7 Creatinine 1.1 H Est GFR (CKD-EPI 2020) 52.08 Glucose 169 H Calcium 8.3 L Magnesium 2.2 Total Bilirubin 1.6 H AST 76 H ALT 37 Alkaline Phosphatase 117 H Troponin I < 50 Total Protein 4.9 L Albumin 2.5 L COVID-19 Source SARS-CoV-2 (PCR) Influenza Type A (PCR) Influenza Type B (PCR) RSV (PCR) Add-On Test Request DONE PAWSS Have you Been Recently Intoxicated or Drunk Within the Last 30 days?: No Have you Ever Experienced Previous Episodes of Alcohol Withdrawal?: No Have you ever Experienced Withdrawal Seizures?: No Have you ever Experienced Delirium Tremens(DT)s?: No Have you ever undergone Alcohol Rehabilitation Treatment (i.e, inpt ot outpatient treatment programs)?: No Have you ever Experienced Blackouts?: No Have you ever Combined Alcohol with other Downers within the last 90 days?: No Have you ever Combined Alcohol with any other Substance of Abuse during the last 90 days?: No Result: 0
[2022-07-30] MEDS: Trimethobenzamide 200 MG/2 ML VIAL IM (16:07)
[2022-07-30] MEDS: LORazepam 1 MG TAB PO (20:07)
[2022-07-30] MEDS: Atorvastatin 40 MG TAB 80 MG PO (20:09)
[2022-07-30] MEDS: Mirtazapine 15 MG TAB 7.5 MG PO (20:13)
[2022-07-30] MEDS: Melatonin 3 MG TAB 6 MG PO (20:13)
[2022-07-30 22:18] LABS: Bilirubin Negative (Negative); Blood Negative (Negative); Clarity Clear (Clear); Glucose Negative (Negative); Ketones Negative (Negative); Leukocyte Esterase Negative (Negative); Nitrite Negative (Negative); Urobilinogen 0.2 EU/dL (Up TO 0.2); pH 5.5 (5-8)
[2022-07-31] VITALS (23 sets, daily range): BP systolic 92–119; BP diastolic 55–69; PULSE 77–100; RESP 1–26; TEMP 36.1–37; O2SAT 94–98
[2022-07-31] MEDS: Refresh PLUS Eye Drops 0.4ml OU ×5 (03:43→20:17)
[2022-07-31] MEDS: Normal Saline Flush 10 ML SYR IVP ×2 (03:44→20:58)
[2022-07-31 05:45] LABS: Abs Immature Grans 0.02 10^3/uL (0.0-0.06); Absolute Basophil Count 0.01 10^3/uL (0.0-0.2); Absolute Monocyte Count 0.19 10^3/uL (0.1-0.8); Absolute Neutrophil Count 1.89 10^3/uL (1.2-6.7); Basophils % 0.3; HCT 29.7 % (36.0-46.0); HGB 9.6 g/dL (11.2-15.7); Immature Grans % 0.7; Lymphocytes % 29.9; MCH 32.4 pg (27.0-33.0); MCHC 32.3 % (32.0-36.0); MCV 100 fL (80-95); MPV 9.2 fL (8.0-11.0); Monocytes % 6.3; Neutrophils % 62.8; RBC 2.96 10^6/uL (3.93-5.22); RDW 16.8 % (11.7-14.6); RDW-SD 61.5 fL; WBC 3.01 10^3/uL (4.4-10.8)
[2022-07-31 05:55] LABS: Anion Gap 6.5 mmol/L (3-11); BUN 8 mg/dL (7-18); CO2 26.5 mmol/L (21.0-32.0); CREATININE 1.1 mg/dL (0.55-1.02); Calcium 8.2 mg/dL (8.5-10.1); Chloride 105 mmol/L (98-107); Estimated GFR 52.08 (mL/min/1.73m2); Glucose 130 mg/dL (74-106); Magnesium 1.6 mg/dL (1.8-2.4); Potassium 3.5 mmol/L (3.5-5.1); Sodium 138 mmol/L (136-145)
[2022-07-31 06:27] LABS: Platelet Count 88 10^3/uL (130-400)
[2022-07-31] MEDS: Pantoprazole 40 MG TABCR PO ×2 (06:53→20:13)
[2022-07-31] MEDS: Albuterol/Ipratropium 3 ML UPD VIAL IH (07:38)
[2022-07-31] MEDS: Budesonide 0.5 MG/2 ML UPD VIAL IH (08:18)
[2022-07-31] MEDS: MAGNESIUM SULFATE 2 GM/50 ML BAG IVPB (08:55)
[2022-07-31] MEDS: amLODIPine 10 MG TAB PO (09:24)
[2022-07-31] MEDS: Aspirin E.C. 81 MG TABEC PO (09:25)
[2022-07-31] MEDS: busPIRone 5 MG TAB PO ×2 (09:25→20:16)
[2022-07-31] MEDS: Cyanocobalamin 500 MCG TAB 1000 MCG PO (09:26)
[2022-07-31] MEDS: Ciprofloxacin 250 MG TAB PO (09:26)
[2022-07-31] MEDS: Metoprolol CR 50 MG TABCR PO (09:27)
[2022-07-31] MEDS: Ferrous Sulfate 325 MG TAB PO (09:27)
[2022-07-31] MEDS: Mirabegron 50 MG TABCR PO (09:27)
[2022-07-31] MEDS: Furosemide 20 MG TAB PO ×2 (09:27→16:30)
[2022-07-31] MEDS: Folic Acid 1 MG TAB PO (09:27)
[2022-07-31] MEDS: Multivitamin TAB 1 TAB PO (09:28)
[2022-07-31] MEDS: QUEtiapine 25 MG TAB 12.5 MG PO ×2 (09:29→20:05)
[2022-07-31] MEDS: Spironolactone 50 MG TAB PO ×2 (09:30→20:14)
[2022-07-31] MEDS: Sucralfate 1 GM TAB PO ×2 (09:30→20:17)
[2022-07-31] MEDS: Venlafaxine 75 MG CAPCR PO (09:31)
[2022-07-31] MEDS: valACYclovir 500 MG TAB PO (09:31)
[2022-07-31] MEDS: Thiamine 100 MG TAB PO (09:31)
--- NOTE | 2022-07-31 10:43 | IN_ITS ---
PT Notes Visit Reasons: Elevated Troponin Inpatient Physical Therapy Evaluation Date: [07/31/2022] Referring Doctor: Dr. Laly Dumnot PT Orders: PT CONSULT: Limited mobility Precautions: standard, fall Patient Profile/Admitting Diagnosis: 77 yo F with chronic alcohol use disorder and alcoholic cirrhosis with many admissions at [facility] who presented to the emergency room for the 3rd time in 3 days with nausea, vomiting, and epigstric pain.? In ICU with c/o abdominal pain, right chest and shoulder pain. c/o neck pain and general arthritis pain. PMHX: []Had COVID 10 days ago admitted to [facility] All Active Problems? Elevated troponin (Acute) Elevated bilirubin (Acute) Abdominal ascites (Acute) Vomiting (Acute) Dehydration (Acute) Mixed stress and urge urinary incontinence (Acute) Cough (Acute) Thyroid nodule (Acute) Pneumonia due to COVID-19 virus (Acute) Anxiety (Chronic) Adverse effect of metronidazole (Acute) Medication monitoring encounter (Acute) Advance care planning (Acute) Cirrhosis of liver with ascites (Acute) Animal bite of right hand with infection (Acute) Umbilical hernia (Acute) 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 ascites (Acute) Hyperbilirubinemia (Acute) Shortness of breath (Acute) Elevated blood pressure reading without diagnosis of hypertension (Acute) Left arm pain (Acute) Ambulatory dysfunction (Acute) Incontinence (Acute) Urge incontinence (Acute) Anorexia (Acute) Headache (Acute) Onychomycosis (Acute) Depression (Chronic) Chest pain (Acute) Foot pain, right (Acute) Tendinitis of left rotator cuff (Acute) Macrocytosis (Acute 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 Leukopenia (Acute) Headache (Acute) Epigastric abdominal pain (Acute) Calcific tendinitis of left shoulder (Acute) Pulmonary mass (Acute) spiculated massPneumonia (Acute) Depression with suicidal ideation (Acute) Alcohol abuse (Chronic) Diarrhea (Acute) Epigastric pain (Acute) Dehydration (Acute) Hypokalemia (Acute) Discharge planning issues (Acute) Palliative care patient (Acute) Difficult intravenous access (Acute) Multiple IV attempts, usually requires ultrasound placement.PTSD (post-traumatic stress disorder) (Acute) Anemia (Chronic) Depression (Chronic) Foot pain, right (Acute) T12 compression fracture (Acute) Presacral mass (Chronic) Deviated nasal septum (Acute) Frequent falls (Chronic) Head injury (Acute) Ambulatory dysfunction (Chronic) Shoulder pain, right (Chronic) DVT prophylaxis (Acute) Suicidal ideation (Acute) Dry eye (Acute) Pruritus (Acute) Dystrophic nail (Acute) AMBER (acute kidney injury) (Acute) Iron deficiency anemia (Chronic) Alcohol abuse (Chronic) Hypomagnesemia (Chronic) Discharge planning issues (Acute) UTI (urinary tract infection) (Acute) Fall (Acute) Atelectasis of left lung (Chronic) Advance directive on file (Acute) Nodule of upper lobe of right lung (Acute ~09/13/18) 09/13/18 [facility]; 12mm SPICULATED -kbCataract (Chronic 11/07/15) Hypertension (Chronic) high today; she will check readings at homeHyperlipidemia (Chronic) Back pain, chronic (Chronic) Depression (Chronic) Osteopenia (Chronic) Medical History? Adjustment disorder with depressed mood Alcoholic ketosis Anemia Cervical radicular pain neck pain and [facility] 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) pls refrain from alcoholChronic alcoholism she will not stop drinking unless she checks with me, so that we can help her avert withdrawal I do not think she is capable on her own--she would need placement to achieve required goal of 3 months of sobrietyChronic diarrhea Closed right humeral fracture Corneal ulcer, right (~08/23/18) 08/23/18; [facility]-kbFracture of humerus, left, closed Genital herpes simplex recurrent gential; suppressive Valtrex GERD (gastroesophageal reflux disease) GI bleed (12/20/16) Hypertension Hypokalemia Hypomagnesemia Incidental lung nodule, greater than or equal to 8mm 1cm, spiculated, stable for many years, recommend f/u in 6 moMultiple rib fractures [facility]11[facility] 09/21/16 NEGATIVE MP Osteoarthritis Palliative care patient (03/21/17) Pancreatitis, alcoholic, acute Peripheral edema Photophobia of right eye Pleural effusion on left 03/11/19 [facility] (~09/15/18) 09/15/18 [facility], epid[facility] injuections [facility] Tubular adenoma of colon (01/28/17) Urinary incontinence 01/24/13 urethral suspension and sling at [facility] (bladder suspension 1991) Vision loss of right eye 08/17/18;[facility]-kbWernicke encephalopathy Social History/Home Situation: lives alone in apartment with 4 RAFAEL. Uses either FWW or cane for ambulation in the home. Has caregiver for 2 hours, 3x/week. Was participating in outpatient PT until her recent issues. Equipment Owned/DME: cane, FWW Current Functional Limitations: amb at home with RW uses electric chair and electric bed to aid with transfers. Currently states that she gets dizzy going sit to stand and refuses to stand or walk with us today. She is able to go supine to sit with 18 deg incline with min assist. Subjective: I don't think we can do anything today, I'm definately not going to stand Objective: [] General Observation: Laying supine in bed with 18 deg elevation Mental Status: A and O x 3 Pain: 8/10 neck and abdomin, I do better with Advil but they only give me Tylenol Vital Signs: HR 91-98 t/o session, BP 107/68 pt. reports sometimes her BP goes low ROM:hx of bilateral fx shoulders per patient Right Upper Extremity: ? Shoulder Flexion allows up to 90 degrees. Shoulder abduction allows up to 70 degrees. Elbow flexion WFL. Wrist flexion WFL. Functional opening and closing of hand WFL. Left Upper Extremity: ? Shoulder Flexion allows up to 100 degrees. Shoulder abduction allows up to 90 degrees. Elbow flexion WFL. Wrist flexion WFL. Functional opening and closing of hand WFL. Right Lower Extremity: Hip flexion allows up to 20 degrees beyond 90 while seated at edge of bed. Hip abduction WFL. Knee flexion 30-90 degrees. Knee extension -30 degrees.? Ankle dorsiflexion WFL. Ankle plantarflexion WFL. Left Lower Extremity: Hip flexion allows up to 20 degrees beyond 90 while seated at edge of bed. Hip abduction WFL. Knee flexion 30-90 degrees. Knee extension - 30 degrees.? Ankle dorsiflexion WFL. Ankle plantarflexion WFL. Strength: poor effort to MMT Right Upper Extremity: Shoulder flexors 3-/5. Shoulder abductors 3-/5. Elbow flexors 3/5. Elbow extensors 3/5. Communications Clerk strong. Left Upper Extremity: Shoulder flexors 3-/5. Shoulder abductors 3-/5. Elbow flexors 3/5. Elbow extensors 3/5. Communications Clerk strong. Right Lower Extremity: Hip flexors 3-/5. Hip abductors 3/5. Knee flexors 3-/5. Knee extensors 3-/5. Ankle dorsiflexors 3/5. Ankle plantarflexors 3-/5. Left Lower Extremity: Hip flexors 2/5. Hip abductors 3/5. Knee flexors 3-/5. Knee extensors 3-/5. Ankle dorsiflexors 3/5. Ankle plantarflexors 3-/5. Bed Mobility/Transfers: Supine to sit min assist Sit to stand refused x3 Stand to sit NT Bed to chair NT Gait: Pt refused. Reports ambulating with 4WRW at home Balance: Static Sitting: normal Dynamic Sitting: normal Static Standing:[NT] Dynamic Standing: [NT] Special Tests: Mobility Limitations Standardized Measure [facility] 6 clicks Basic Mobility Inpatient Short Form: Raw Score: [] 13 Standardized Score: [] 36.74 CMS Score: [] 64.9 Informed Consent/Education: Patient instructed in purpose of PT consult and plan of care. Assessment: Patient is a 77 year old female referred to physical therapy services with the diagnosis of Alcohol abuse. Patient presents with clinical signs and symptoms consistent with clinical signs and symptoms consistent with current/admitting diagnoses that have resulted to mobility limitations, instability, generalized weakness, and impairment of motor control as demonstrated by the following impairment level findings: 1.? Decreased strength to B UE/LE major muscle groups 2.? Decreased ROM of B UE/LE Impairments are contributing to the following functional limitations: 2.? Inability to independently transfer 3.? Increase completion time for mobility ADL performance 4.? Increased fall risk based on history/strength Patient is assessed as a 49886 minimum complexity based on the following: History: 75-year-old female with impairment level findings, functional impairments, medical history, and [facility] deficit score of 64% Examination: Demonstrable impairment in strength, mobility, and range of motion with underlying impairments and functional limitations as documented above Presentation: Evolving Decision Makin min complexity Goals:Assess transfers and ambulation Goals X1 week 1. Supine-Sit independent 2. Sit-Supine independent 3. Sit-Stand supervised 4. Stand-Sit supervised 5. Bed-Chair supervised 6. Chair-Bed supervised 7.? gait on level surface with use of RW 8.? Stair negotiation while holding onto bilateral rails for at least 5 steps without report of pain nor dyspnea 9. Good static and dynamic standing balance/tolerance Treatment [id number] ankle pumps, supine hip and knee flexion and extension 2x5 bilateral, seated knee flexion and extesnion 2x5, shoulder scaption x5 in sitting. Encouraged patient to participate in activity to decresed stiffness, improve strength and mobility and preparation for safe return to home. DISCHARGE RECOMMENDATIONS: ? Home with no services [] [X] ? Home with services.? Home when medically cleared by hospitalist.? Patient will benefit from home health PT services in order to progress mobility level using least restrictive assistive ambulatory device, assess home safety, identify additional equipment needs, and establish a functional maintenance program that will increase ability of patient to remain at home. [] ? Home with outpatient PT [] [] ? SNF for continued rehabilitation [] [] ? [facility] [] [] ? SNF versus LTC based on ability to participate and progress [] [], as demonstrated by the following impairment level findings: []. Impairments are contributing to the following functional limitations: AMPAC score. Plan of Care/Treatment Plan: 1-2x/day, 7 days/week x 1 week. Plan of care has been reviewed with the SIGNAL WIRER providing the service under Physical Therapy direction. Initiate Physical Therapy intervention for strengthening, bed mobility, transfers, gait, stairs, balance training, use of assistive device. TREATMENT CODE/TIME: 39176 15' /[id number] 10' = 25'
--- NOTE | 2022-07-31 11:48 | NUR.NOTE ---
Physical therapist works with patient while patient in bed. Patient refuses getting out of bed.Nursing Note:
--- NOTE | 2022-07-31 11:58 | PGE_ITS ---
Date of Service Date of service: 07/31/22 Time of Service: 11:59 Assessment and Plan Assessment and plan (1) Elevated troponin: Status: Acute Assessment and plan: Evaluated by cardiology. Not felt to be due to ACS. Even if there were a coronary lesion, patient's thrombocytopenia would make treatment risky. . Continue asa, statin. Plavix and Lovenox d/c'ed (and HIT panel pending). Continue cardiac monitoring for now. Will obtain an echocardiogram. (2) Thrombocytopenia: Status: Chronic Assessment and plan: Improved Suspect that this is due to YOBANI + lovenox. HIT not likely; occurred after 1 day of heparin SQ, not 5> days after heparin initiated which would be typical for HIT. Less likely due to splenic sequestration/cirrhosis/covid-19 because of the clinical scenario when this occured. Lovenox and plavix d/c'ed. Continue asa. Monitor plts. Avoid chemical DVT ppx. (3) Cirrhosis of liver with ascites: Status: Acute Assessment and plan: Dr Dumont spent time talking to Leticia about her need to quit drinking. She states she is really trying. She cites her animals to live for. Palliative care to see her. S/p parancethesis on 06/25 - agree that she does not need it at this time. Continue furosemide and spironolactone. (4) UTI (urinary tract infection): Status: Acute Assessment and plan: Prior to admission, due to E. Coli. She had a negative UA since (on 07/20/22). Urine recheck is negative. D/C cipro. . Qualifiers: Urinary tract infection type: acute cystitis Hematuria presence: without hematuria Qualified Code(s): N30.00 - Acute cystitis without hematuria (5) Vomiting: Status: Acute Assessment and plan: Resolved. Tolerating oral intake. Likely this is alcoholic gastritis. Not clinically pancreatitis. Continue PPI, carafate, prn zofran and tigan. Long COVID can also present as nausea. (6) Pneumonia due to COVID-19 virus: Status: Ruled-out Assessment and plan: residual covid-19 positivity. Not currently clinically ill with COVID-19. Ok to remain off of precautions. (7) Hypomagnesemia: Status: Chronic Assessment and plan: Mg still low at 1.6 IV Mg. Monitor level. Continue cardiac monitoring to monitor QTc (prolonged on admission). (8) Hypokalemia: Status: Acute Assessment and plan: Now low normal. Monitor. (9) Alcohol abuse: Status: Chronic Assessment and plan: Chronic alcoholism with alcoholic cirrhosis. Advised abstinence. Patient appears interested. Interested in cessation; care management to contact a assistant womens volleyball coach. Palliative care reconsulted. Monitor for signs of w/d. Continue MVI/thiamine. (10) DVT prophylaxis: Status: Acute Assessment and plan: Chemical DVT ppx d/c'ed due to worsening thrombocytopenia. SCDs. (11) Discharge planning issues: Status: Acute Assessment and plan: DNR/DNI C/s PT. C/s palliative care Subjective Subjective Patient reports: pain is less (Pain is in RUQ) and tolerating a regular diet (ate small breakfast); denies nausea, vomiting, shortness of breath or afebrile Exam Narrative Exam Narrative: General:Lying in bed. NAD. Pleasant/conversant. HEENT: EOMI, MMM Heart: RRR, no murmur Lungs: CTAB Abdomen: soft, tender in RUQ, nondistended. No rebound. Extremities: no edema BLEs, 2+ pedal pulses B Objective Last Vital Signs Temp 36.1 C L 07/31/22 09:04 Pulse 100 H 07/31/22 09:04 Resp 21 07/31/22 09:04 BP 95/55 L 07/31/22 09:04 Pulse Ox 95 07/31/22 09:04 Laboratory Results - last 24 hr 07/30/22 07/30/22 07/31/22 21:48 Unknown 05:00 WBC RBC Hgb Hct MCV MCH MCHC RDW Plt Count MPV Immature Gran % Neutrophils % Lymphocytes % Monocytes % Eosinophils % Basophils % Nucleated RBC % Absolute Neutrophils Absolute Lymphocytes Absolute Monocytes Absolute Eosinophils Absolute Basophils Sodium 138 Potassium 3.5 Chloride 105 Carbon Dioxide 26.5 Anion Gap 6.5 BUN 8 Creatinine 1.1 H Est GFR (CKD-EPI 2020) 52.08 Glucose 130 H Calcium 8.2 L Magnesium 1.6 L Urine Color Yellow Urine Clarity Clear Urine pH 5.5 Ur Specific [place] 1.020 Urine Protein Negative Urine Ketones Negative Urine Blood Negative Urine Nitrite Negative Urine Bilirubin Negative Urine Urobilinogen 0.2 Ur Leukocyte Esterase Negative Urine Glucose Negative Add-On Test Request DONE 07/31/22 05:00 WBC 3.01 L RBC 2.96 L Hgb 9.6 L Hct 29.7 L MCV 100 H MCH 32.4 MCHC 32.3 RDW 16.8 H Plt Count 88 L MPV 9.2 Immature Gran % 0.7 Neutrophils % 62.8 Lymphocytes % 29.9 Monocytes % 6.3 Eosinophils % 0.0 Basophils % 0.3 Nucleated RBC % 0.0 Absolute Neutrophils 1.89 Absolute Lymphocytes 0.90 L Absolute Monocytes 0.19 Absolute Eosinophils 0.00 Absolute Basophils 0.01 Sodium Potassium Chloride Carbon Dioxide Anion Gap BUN Creatinine Est GFR (CKD-EPI 2020) Glucose Calcium Magnesium Urine Color Urine Clarity Urine pH Ur Specific [place] Urine Protein Urine Ketones Urine Blood Urine Nitrite Urine Bilirubin Urine Urobilinogen Ur Leukocyte Esterase Urine Glucose Add-On Test Request PAWSS Have you Been Recently Intoxicated or Drunk Within the Last 30 days?: No Have you Ever Experienced Previous Episodes of Alcohol Withdrawal?: No Have you ever Experienced Withdrawal Seizures?: No Have you ever Experienced Delirium Tremens(DT)s?: No Have you ever undergone Alcohol Rehabilitation Treatment (i.e, inpt ot outpatient treatment programs)?: No Have you ever Experienced Blackouts?: No Have you ever Combined Alcohol with other Downers within the last 90 days?: No Have you ever Combined Alcohol with any other Substance of Abuse during the last 90 days?: No Result: 0
--- NOTE | 2022-07-31 13:41 | NUR.NOTE ---
Patient has not voided this shift. RN will continue to monitor same. Substantial amount of diarrhea and urine during the overnight last night.Nursing Note:
--- NOTE | 2022-07-31 14:43 | NUR.NOTE ---
Patient sleeping in bed. Patient prior to dosing off did meet with a Dump Truck Driver [address]. Patient was a bit resistance to agreeing to work with the athletic coach and the suggestions that she made.
[2022-07-31] MEDS: Mirtazapine 15 MG TAB 7.5 MG PO (20:07)
[2022-07-31] MEDS: Melatonin 3 MG TAB 6 MG PO (20:14)
[2022-07-31] MEDS: Atorvastatin 40 MG TAB 80 MG PO (20:16)
[2022-07-31] MEDS: LORazepam 1 MG TAB PO (20:16)
[2022-08-01] VITALS (7 sets, daily range): BP systolic 102–104; BP diastolic 54–61; PULSE 70–83; RESP 1–19; O2SAT 95
[2022-08-01 06:21] LABS: Abs Immature Grans 0.02 10^3/uL (0.0-0.06); Absolute Basophil Count 0.02 10^3/uL (0.0-0.2); Absolute Eosinophil Count 0.01 10^3/uL (0.0-0.7); Absolute Lymphocyte Count 0.81 10^3/uL (1.2-3.4); Absolute Monocyte Count 0.27 10^3/uL (0.1-0.8); Absolute Neutrophil Count 1.56 10^3/uL (1.2-6.7); Basophils % 0.7; Eosinophils % 0.4; HCT 31.4 % (36.0-46.0); HGB 10.1 g/dL (11.2-15.7); Immature Grans % 0.7; Lymphocytes % 30.1; MCH 32.7 pg (27.0-33.0); MCHC 32.2 % (32.0-36.0); MCV 102 fL (80-95); Neutrophils % 58.1; RBC 3.09 10^6/uL (3.93-5.22); RDW 17.4 % (11.7-14.6); RDW-SD 65.1 fL; WBC 2.69 10^3/uL (4.4-10.8)
[2022-08-01 06:38] LABS: Anion Gap 4.7 mmol/L (3-11); BUN 11 mg/dL (7-18); CO2 28.3 mmol/L (21.0-32.0); CREATININE 1.2 mg/dL (0.55-1.02); Calcium 8.4 mg/dL (8.5-10.1); Chloride 103 mmol/L (98-107); Estimated GFR 46.91 (mL/min/1.73m2); Glucose 120 mg/dL (74-106); Magnesium 1.8 mg/dL (1.8-2.4); Potassium 3.8 mmol/L (3.5-5.1); Sodium 136 mmol/L (136-145)
[2022-08-01 07:10] LABS: Platelet Count 98 10^3/uL (130-400)
[2022-08-01] MEDS: Multivitamin TAB 1 TAB PO (07:59)
[2022-08-01] MEDS: QUEtiapine 25 MG TAB 12.5 MG PO (07:59)
[2022-08-01] MEDS: valACYclovir 500 MG TAB PO (07:59)
[2022-08-01] MEDS: Refresh PLUS Eye Drops 0.4ml OU (07:59)
[2022-08-01] MEDS: Venlafaxine 75 MG CAPCR PO (07:59)
[2022-08-01] MEDS: Furosemide 20 MG TAB PO (08:00)
[2022-08-01] MEDS: Pantoprazole 40 MG TABCR PO (08:00)
[2022-08-01] MEDS: Spironolactone 50 MG TAB PO (08:00)
[2022-08-01] MEDS: Thiamine 100 MG TAB PO (08:00)
[2022-08-01] MEDS: Folic Acid 1 MG TAB PO (08:00)
[2022-08-01] MEDS: busPIRone 5 MG TAB PO (08:00)
[2022-08-01] MEDS: Mirabegron 50 MG TABCR PO (08:00)
[2022-08-01] MEDS: amLODIPine 10 MG TAB PO (08:00)
[2022-08-01] MEDS: Sucralfate 1 GM TAB PO (08:01)
[2022-08-01] MEDS: Aspirin E.C. 81 MG TABEC PO (08:01)
[2022-08-01] MEDS: Metoprolol CR 50 MG TABCR PO (08:01)
[2022-08-01] MEDS: Cyanocobalamin 500 MCG TAB 1000 MCG PO (08:01)
[2022-08-01] MEDS: Ferrous Sulfate 325 MG TAB PO (08:01)
[2022-08-01] MEDS: Albuterol/Ipratropium 3 ML UPD VIAL IH (08:04)
[2022-08-01] MEDS: Budesonide 0.5 MG/2 ML UPD VIAL IH (08:07)
--- NOTE | 2022-08-01 09:14 | W.PM.DS.N ---
Date of service: 08/01/22 Time of Service: 09:15 DS: Diagnosis Discharge Diagnosis (1) Elevated troponin: Status: Acute (2) Thrombocytopenia: Status: Chronic (3) Cirrhosis of liver with ascites: Status: Acute (4) UTI (urinary tract infection): Status: Acute (5) Vomiting: Status: Acute (6) Pneumonia due to COVID-19 virus: Status: Ruled-out (7) Hypomagnesemia: Status: Chronic (8) Hypokalemia: Status: Acute (9) Alcohol abuse: Status: Chronic (10) DVT prophylaxis: Status: Acute (11) Discharge planning issues: Status: Acute Discharge Plan Disposition Patient Disposition: Home Condition: Improving Discharge Details Reason For Visit: Elevated Troponin Admit Date/Time: 07/29/22 18:43 Admit Provider: Clarence Morelos Attending Provider: Clarence Morelos Primary Care Provider: Lavelle Galindo Hospital Course Hospital Course: 77 yo F with chronic alcohol use disorder and alcoholic cirrhosis with many admissions at [facility] who presented to the emergency room for the 3rd time in 3 days with nausea, vomiting, and epigstric pain.? This constellation of symptoms is the same as her typical on admission.? This time it started about 3 days ago.? Nausea, vomiting, and epigatric pain all started on Tuesday around the same time.? This was the last day she drank alcohol.? Pain is band-like epigastric around to her mid back on both sides.? Can't eat due to the pain, though she felt a little better with medication in the ED and she would like to eat some pudding. ? She also felt more short of breath with exertion than usual, though she stated she doesn't move much.? She wasn't sure how long she has had more SOB, but she thinks over a week. She was diagnosed with COVID-19 one month ago and treated at [facility].? About 10 weeks ago she was admitted with cholecystitis and underwent successful cholecystectomy.? No history of significant alcohol withdrawal noted.? ? Her initial troponin was mildly elevated at 68. Repeat levels were 58, 58, <50. Cardiology consulted and felt this finding was nondiagnostic and not particularly concerning. Her EKG was w/o acute changes. Because her acute on chronic thrombocytopenia, dual platelet therapy carried a significant enough risk that it was not ordered. Low-dose aspirin was continued and she had no evidence of bleeding. Her platelet count did recover from a nilson of 59 tp 98 (which is in her normal range). Her oral intake improved and she had no further emesis. She showed no sign/symptoms of alcohol withdrawal. She endorsed interest in community services and a health coach to assist in alcohol avoidance. Follow up with PCP in 1-2 weeks. Home Meds and New Rx's Prescriptions: New aspirin 81 mg Tablet,Delayed Release (Dr/Ec) 81 mg PO DAILY Qty: 0 0RF Continued Xiidra 5 % dropperette 1 drp ophthalmic (eye) BID Rx Instructions: administer approximately 12 hours apart melatonin 3 mg capsule 3 mg PO .pm PRN (Reason: sleep) Qty: 90 4RF Rx Instructions: take in the middle of the night if you cannot get back to sleep ( total dose per 24 hrs - 9mg) budesonide [Pulmicort] 0.5 mg/2 mL suspension for nebulization 0.5 mg inhalation DAILY Qty: 60 5RF ipratropium-albuterol 0.5 mg-3 mg(2.5 mg base)/3 mL solution for nebulization 3 ml inhalation Q6H PRN Myrbetriq 50 mg tablet extended release 24 hr 50 mg PO DAILY Qty: 30 12RF lorazepam 1 mg tablet 1 mg PO QHS PRN (Reason: sleep) Qty: 20 0RF albuterol sulfate [Ventolin HFA] 90 mcg/actuation HFA aerosol inhaler 2 puff inhalation QID PRN (Reason: shortness of breath or wheezing) Qty: 8.5 1RF amlodipine 10 mg tablet 10 mg PO DAILY Qty: 90 3RF buspirone 5 mg tablet 5 mg PO BID Qty: 60 5RF folic acid 1 mg tablet 1 mg PO DAILY Qty: 90 3RF melatonin 3 mg capsule 6 mg PO HS Qty: 180 3RF metoprolol tartrate 50 mg tablet 50 mg PO DAILY Qty: 90 3RF mirtazapine 7.5 mg tablet 7.5 mg PO QHS Qty: 90 4RF ondansetron 4 mg tablet,disintegrating 4 mg PO Q8H PRN (Reason: nausea and vomiting) Qty: 20 2RF pantoprazole 40 mg tablet,delayed release (DR/EC) 40 mg PO DAILY Qty: 90 3RF sucralfate 1 gram tablet 1 g PO BID Qty: 60 11RF thiamine HCl (vitamin B1) 100 mg tablet 100 mg PO DAILY Qty: 90 3RF valacyclovir [Valtrex] 500 mg tablet 500 mg PO DAILY Qty: 90 3RF Rx Instructions: Take 500 mg BID for 3 days, then take daily fluticasone propionate 50 mcg/actuation spray,suspension 2 spray NS daily prn Qty: 16 5RF cyanocobalamin (vitamin B-12) [Vitamin B-12] 500 mcg tablet 1,000 mcg PO DAILY Qty: 180 3RF ferrous sulfate 325 mg (65 mg iron) tablet 325 mg PO BID Qty: 180 3RF Rx Instructions: do not take within 2 hours of antibiotics furosemide 20 mg tablet 20 mg PO BID@0830,1600 Qty: 180 3RF multivitamin [Multiple Vitamins] Tablet 1 tab PO DAILY Qty: 90 3RF quetiapine 25 mg tablet See Rx Instructions PO BID Qty: 60 5RF Rx Instructions: 0.5 tab PO twice a day; spironolactone [Aldactone] 50 mg tablet 50 mg PO BID Qty: 180 3RF venlafaxine 75 mg capsule,extended release 24hr 75 mg PO DAILY Qty: 90 3RF Hold Instructions: Home Medication placed on hold at Doctor's office carboxymethylcellulose sodium [Refresh Plus] 0.5 % Dropperette 1 drp OU Q4H WHILE AWAKE Qty: 30 0RF Label Comments: 08/15/19 pt states that she took her blister pack of meds but that she vomited them up pantoprazole 40 mg Tablet,Delayed Release (Dr/Ec) 40 mg PO BID@729,1999 Qty: 60 0RF albuterol sulfate 90 mcg/actuation HFA aerosol inhaler 2 puff inhalation Q6H PRN (Reason: shortness of breath or wheezing) Qty: 8.5 0RF Discontinued ciprofloxacin HCl 250 mg tablet 250 mg PO BID Qty: 14 0RF Discharge Instructions Activity:: Activity as Tolerated Equipment/Supplies:: No Equipment Needed Diet:: Resume usual home diet DS: Summary Time Spent with Patient providing and/or coordinating discharge services: Greater than 30 minutes Status at Discharge Functional status at discharge: uses cane/walker Overall status at discharge: patient is progressing back to baseline Mental Status: mental status grossly normal Speech and Movement: speech and movement normal Mood: congruent mood Affect: normal affect Exam Psych Mental Status: mental status grossly normal Speech and Movement: speech and movement normal Mood: congruent mood Affect: normal affect DS: Data Vitals/I&O Vitals and I&O: Vital Signs Temperature 37.0 C 07/31/22 16:07 Temperature Source Temporal Artery Scan 07/31/22 16:07 Pulse 80 08/01/22 08:16 Pulse Rhythm Regular 08/01/22 07:20 Pulse 74 08/01/22 06:00 Respiratory Rate 16 08/01/22 08:16 Respiratory Effort 08/01/22 07:20 Respiratory Depth Normal 08/01/22 07:20 Respiratory Pattern Normal 08/01/22 07:20 Blood Pressure 102/61 08/01/22 04:32 Blood Pressure Mean 71 08/01/22 04:32 Blood Pressure Position Supine 07/29/22 13:04 Pulse Oximetry 95 08/01/22 08:16 Oxygen Delivery Method Room Air 08/01/22 08:04 Oxygen Flow Rate 0 08/01/22 08:04 Pain Level 0 07/31/22 16:07 Comment 07/31/22 01:21 Intake & Output 07/31/22 07/31/22 08/01/22 11:59 23:59 11:59 Intake Total 200 / 560 360 / 560 Balance 200 / 560 360 / 560 Weight 59.8 kg Intake: IV 80 / 80 Oral 120 / 480 360 / 480 Other: Urine Odor None Comment Patient has brief on. Declines to get OOB to commode or use bedpan. Brief changed once on 11p-7a shift. No strong odor or color. Small/Moderate amount of urine in brief. Incontinent of moderate amount of urine. Voiding Methods Diaper Incontinent Data Completed and Pending Labs on day of discharge: Labs from last 24 hours 08/01/22 08/01/22 05:23 05:23 WBC 2.69 L RBC 3.09 L Hgb 10.1 L Hct 31.4 L MCV 102 H MCH 32.7 MCHC 32.2 RDW 17.4 H Plt Count 98 L MPV 10.0 Immature Gran % 0.7 Neutrophils % 58.1 Lymphocytes % 30.1 Monocytes % 10.0 Eosinophils % 0.4 Basophils % 0.7 Nucleated RBC % 0.0 Absolute Neutrophils 1.56 Absolute Lymphocytes 0.81 L Absolute Monocytes 0.27 Absolute Eosinophils 0.01 Absolute Basophils 0.02 Sodium 136 Potassium 3.8 Chloride 103 Carbon Dioxide 28.3 Anion Gap 4.7 BUN 11 Creatinine 1.2 H Est GFR (CKD-EPI 2020) 46.91 Glucose 120 H Calcium 8.4 L Magnesium 1.8 Preliminary micro results at discharge 07/30/22 21:48 Urine Culture - Preliminary Urine - Clean Catch Gram Positive Lashonda,Mixed Gram Negative Lashonda,Mixed PFSH All Active Problems Hypokalemia (Acute) Thrombocytopenia (Chronic) Elevated troponin (Acute) Elevated bilirubin (Acute) Abdominal ascites (Acute) Vomiting (Acute) Dehydration (Acute) Mixed stress and urge urinary incontinence (Acute) Cough (Acute) Thyroid nodule (Acute) Anxiety (Chronic) Adverse effect of metronidazole (Acute) Medication monitoring encounter (Acute) Advance care planning (Acute) Cirrhosis of liver with ascites (Acute) Animal bite of right hand with infection (Acute) Umbilical hernia (Acute) 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 ascites (Acute) Hyperbilirubinemia (Acute) Shortness of breath (Acute) Elevated blood pressure reading without diagnosis of hypertension (Acute) Left arm pain (Acute) Ambulatory dysfunction (Acute) Incontinence (Acute) Urge incontinence (Acute) Anorexia (Acute) Headache (Acute) Onychomycosis (Acute) Depression (Chronic) Chest pain (Acute) Foot pain, right (Acute) Tendinitis of left rotator cuff (Acute) Macrocytosis (Acute 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 Leukopenia (Acute) Headache (Acute) Epigastric abdominal pain (Acute) Calcific tendinitis of left shoulder (Acute) Pulmonary mass (Acute) spiculated mass Pneumonia (Acute) Depression with suicidal ideation (Acute) Alcohol abuse (Chronic) Diarrhea (Acute) Epigastric pain (Acute) Dehydration (Acute) Hypokalemia (Acute) Discharge planning issues (Acute) Palliative care patient (Acute) Difficult intravenous access (Acute) Multiple IV attempts, usually requires ultrasound placement. PTSD (post-traumatic stress disorder) (Acute) Anemia (Chronic) Depression (Chronic) Foot pain, right (Acute) T12 compression fracture (Acute) Presacral mass (Chronic) Deviated nasal septum (Acute) Frequent falls (Chronic) Head injury (Acute) Ambulatory dysfunction (Chronic) Shoulder pain, right (Chronic) DVT prophylaxis (Acute) Suicidal ideation (Acute) Dry eye (Acute) Pruritus (Acute) Dystrophic nail (Acute) AMBER (acute kidney injury) (Acute) Iron deficiency anemia (Chronic) Alcohol abuse (Chronic) Hypomagnesemia (Chronic) Discharge planning issues (Acute) UTI (urinary tract infection) (Acute) Fall (Acute) Atelectasis of left lung (Chronic) Advance directive on file (Acute) Nodule of upper lobe of right lung (Acute ~09/13/18) 09/13/18 [facility]; 12mm SPICULATED -kb Cataract (Chronic 11/07/15) Hypertension (Chronic) high today; she will check readings at home Hyperlipidemia (Chronic) Back pain, chronic (Chronic) Depression (Chronic) Osteopenia (Chronic) Medical History Adjustment disorder with depressed mood Alcoholic ketosis Anemia Cervical radicular pain neck pain and [facility] 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) pls refrain from alcohol Chronic alcoholism she will not stop drinking unless she checks with me, so that we can help her avert withdrawal I do not think she is capable on her own--she would need placement to achieve required goal of 3 months of sobriety Chronic diarrhea Closed right humeral fracture Corneal ulcer, right (~08/23/18) 08/23/18; [facility] Fracture of humerus, left, closed Genital herpes simplex recurrent gential; suppressive Valtrex GERD (gastroesophageal reflux disease) GI bleed (12/20/16) Hypertension Hypokalemia Hypomagnesemia Incidental lung nodule, greater than or equal to 8mm 1cm, spiculated, stable for many years, recommend f/u in 6 mo Multiple rib fractures 03/11/19 [facility] Non-cardiac chest pain (09/21/16) [facility] 09/21/16 NEGATIVE MP Osteoarthritis Palliative care patient (03/21/17) Pancreatitis, alcoholic, acute Peripheral edema Photophobia of right eye Pleural effusion on left 03/11/19 [facility] Presacral mass (~09/15/18) 09/15/18 [facility] Sciatica right, epidural injuections [facility] Tubular adenoma of colon (01/28/17) Urinary incontinence 01/24/13 urethral suspension and sling at [facility] (bladder suspension 1991) 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 Bladder repair. Repair bladder injury, simple Family History Mother No problems noted. Father , DROWNED at age 50. No problems noted. Sister Personal history of malignant neoplasm MELANOMA Sister No problems noted. Grandfather Personal history of malignant neoplasm STOMACH Grandfather Personal history of malignant neoplasm PROSTATE Grandmother Heart disease GA Acute ill-defined cerebrovascular disease Grandmother Personal history of malignant neoplasm UTERINE Aunt , GA Heart disease GA Aunt , [place] Heart disease Brother No problems noted. Social History Smoking/Tobacco Use Status: Former Tobacco Use Quit Date: 08/05/20 Smoking risk assessment performed?: Yes Alcohol Intake: current Alcohol Intake frequency: 3 or more drinks per day Alcohol type: hard liquor Drug use: Never Substance use type: does not use Details: has not drank since tuesday Current gender identity: female Do you feel safe at home: Yes Do you feel safe in your relationship?: Yes
--- NOTE | 2022-08-01 09:26 | PDOC.CMDIS ---
- If Service Date Differs Date of service: 08/01/22 Time of Service: 09:26 LACE Index Scoring Tool - Questions: Length of Stay (in days): 3 Acuity (Admit via E.D.?): Yes Comorbidities: Liver or Renal Disease E.D. Visits: 12 - Answers: Total Score: 15 Risk of Readmission: High Risk Care Management Discharge Reason for Hospitalization: Elevated troponin Discharge Plan: Leticia will be discharged home with a resumption of her caregiver services through [facility]. She will follow up with her community providers and plan of care as directed. Leticia will transport home via [facility] private vehicle coordinated by CM. Patient/Family Education Needs: Review of discharge instructions regarding medications, activity level, and follow up plan of care, and discussion about [employer] Me [employer]
--- NOTE | 2022-08-01 14:30 | PT.INTREAT ---
Date of service: 08/01/22 Time of Service: 10:55 PT Notes Visit Reasons: Elevated Troponin Inpatient Physical Therapy Treatment Note [facility] Date: 08/01/2022 PRECAUTIONS: Fall, activity as tolerated SUBJECTIVE: Leticia is pleasant and agreeable to participating in PT. She states that she is feeling better today. OBJECTIVE: PAIN: No c/o pain BED MOBILITY/TRANSFERS Supine-sit: SBA with HOB at 20 degrees with cueing and encouragement for movement initiation Sit-stand: SBA Stand-sit: SBA Bed-chair: SBA GAIT Assistive Device: No AD Weight bearing: Full Assist: SBA Distance: 5' x2 Deviation: None TOILETING: Patient toileted with assist DRESSING: Patient requires set up assist for donning shirt and pants. ASSESSMENT: Patient tolerated session without complaint. She appears to be at baseline level of function. PLAN: Patient to discharge to home later today, per provider. Recommend follow up with PT upon discharge. TREATMENT CODE/TIME: 16 minutes; 24083 (10:55)
[2022-08-01 15:58] LABS: HIT ELISA 0.056 OD (<0.400); HIT Interpretation Negative (Negative)
--- NOTE | 2022-08-02 18:00 | PT.INDS ---
Date of service: 08/02/22 PT Notes Visit Reasons: Elevated Troponin Inpatient Physical Therapy Discharge Summary Date: 08/02/2022 Dates of Service: 07/31/2022 and 08/01/2022 This is a clinical summary of care provided for the duration of dates listed above. No charge was made in the completion of this documentation. Referring Doctor:? Dr. Laly Dumont PT Orders: PT CONSULT: Limited mobility Precautions: standard, fall Patient Profile/Admitting Diagnosis:??77 yo F with chronic alcohol use disorder and alcoholic cirrhosis with many admissions at [facility] who presented to the emergency room for the 3rd time in 3 days with nausea, vomiting, and epigstric pain.?? In ICU with c/o abdominal pain, right chest and shoulder pain.? c/o neck pain and general arthritis pain.? PMHX: All Active Problems? Elevated troponin (Acute) Elevated bilirubin (Acute) Abdominal ascites (Acute) Vomiting (Acute) Dehydration (Acute) Mixed stress and urge urinary incontinence (Acute) Cough (Acute) Thyroid nodule (Acute) Pneumonia due to COVID-19 virus (Acute) Anxiety (Chronic) Adverse effect of metronidazole (Acute) Medication monitoring encounter (Acute) Advance care planning (Acute) Cirrhosis of liver with ascites (Acute) Animal bite of right hand with infection (Acute) Umbilical hernia (Acute) 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 ascites (Acute) Hyperbilirubinemia (Acute) Shortness of breath (Acute) Elevated blood pressure reading without diagnosis of hypertension (Acute) Left arm pain (Acute) Ambulatory dysfunction (Acute) Incontinence (Acute) Urge incontinence (Acute) Anorexia (Acute) Headache (Acute) Onychomycosis (Acute) Depression (Chronic) Chest pain (Acute) Foot pain, right (Acute) Tendinitis of left rotator cuff (Acute) Macrocytosis (Acute 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 Leukopenia (Acute) Headache (Acute) Epigastric abdominal pain (Acute) Calcific tendinitis of left shoulder (Acute) Pulmonary mass (Acute) spiculated massPneumonia (Acute) Depression with suicidal ideation (Acute) Alcohol abuse (Chronic) Diarrhea (Acute) Epigastric pain (Acute) Dehydration (Acute) Hypokalemia (Acute) Discharge planning issues (Acute) Palliative care patient (Acute) Difficult intravenous access (Acute) Multiple IV attempts, usually requires ultrasound placement.PTSD (post-traumatic stress disorder) (Acute) Anemia (Chronic) Depression (Chronic) Foot pain, right (Acute) T12 compression fracture (Acute) Presacral mass (Chronic) Deviated nasal septum (Acute) Frequent falls (Chronic) Head injury (Acute) Ambulatory dysfunction (Chronic) Shoulder pain, right (Chronic) DVT prophylaxis (Acute) Suicidal ideation (Acute) Dry eye (Acute) Pruritus (Acute) Dystrophic nail (Acute) AMBER (acute kidney injury) (Acute) Iron deficiency anemia (Chronic) Alcohol abuse (Chronic) Hypomagnesemia (Chronic) Discharge planning issues (Acute) UTI (urinary tract infection) (Acute) Fall (Acute) Atelectasis of left lung (Chronic) Advance directive on file (Acute) Nodule of upper lobe of right lung (Acute ~09/13/18) 09/13/18 [facility]; 12mm SPICULATED -kbCataract (Chronic 11/07/15) Hypertension (Chronic) high today; she will check readings at homeHyperlipidemia (Chronic) Back pain, chronic (Chronic) Depression (Chronic) Osteopenia (Chronic) Medical History? Adjustment disorder with depressed mood Alcoholic ketosis Anemia Cervical radicular pain neck pain and [facility] 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) pls refrain from alcoholChronic alcoholism she will not stop drinking unless she checks with me, so that we can help her avert withdrawal I do not think she is capable on her own--she would need placement to achieve required goal of 3 months of sobrietyChronic diarrhea Closed right humeral fracture Corneal ulcer, right (~08/23/18) 08/23/18; [facility]-kbFracture of humerus, left, closed Genital herpes simplex recurrent gential; suppressive Valtrex GERD (gastroesophageal reflux disease) GI bleed (12/20/16) Hypertension Hypokalemia Hypomagnesemia Incidental lung nodule, greater than or equal to 8mm 1cm, spiculated, stable for many years, recommend f/u in 6 moMultiple rib fractures [facility]11[facility] 09/21/16 NEGATIVE MP Osteoarthritis Palliative care patient (03/21/17) Pancreatitis, alcoholic, acute Peripheral edema Photophobia of right eye Pleural effusion on left 03/11/19 [facility]ral mass (~09/15/18) [facility], [facility] Tubular adenoma of colon (01/28/17) Urinary incontinence 01/24/13 urethral suspension and sling at [facility] (bladder suspension 1991) Vision loss of right eye 08/17/18;[facility] Wernicke encephalopathy Social History/Home Situation: lives alone in apartment with 4 RAFAEL. Uses either FWW or cane for ambulation in the home. Has caregiver for 2 hours, 3x/week. Was participating in outpatient PT until her recent issues. Equipment Owned/DME: cane, FWW Current Functional Limitations: amb at home with RW uses electric chair and electric bed to aid with transfers.? Currently states that she gets dizzy going sit to stand and refuses to stand or walk with us today.? She is able to go supine to sit with 18 deg incline with min assist. Subjective:?NT. See most recent TRANSMISSION SPECIALIST notes. Objective:? General Observation: NT. See most recent TRANSMISSION SPECIALIST notes. Mental Status: NT. See most recent TRANSMISSION SPECIALIST notes. Pain: NT. See most recent TRANSMISSION SPECIALIST notes. Vital Signs: NT. See most recent TRANSMISSION SPECIALIST notes. ROM: Right Upper Extremity: ? Shoulder Flexion allows up to 90 degrees. Shoulder abduction allows up to 70 degrees. Elbow flexion WFL. Wrist flexion WFL. Functional opening and closing of hand WFL. Left Upper Extremity: ? Shoulder Flexion allows up to 100 degrees. Shoulder abduction allows up to 90 degrees. Elbow flexion WFL. Wrist flexion WFL. Functional opening and closing of hand WFL. Right Lower Extremity: Hip flexion allows up to 20 degrees beyond 90 while seated at edge of bed. Hip abduction WFL. Knee flexion 30-90 degrees. Knee extension -30 degrees.? Ankle dorsiflexion WFL. Ankle plantarflexion WFL. Left Lower Extremity: Hip flexion allows up to 20 degrees beyond 90 while seated at edge of bed. Hip abduction WFL. Knee flexion 30-90 degrees. Knee extension -30 degrees.? Ankle dorsiflexion WFL. Ankle plantarflexion WFL. Strength:? Right Upper Extremity: Shoulder flexors 3-/5. Shoulder abductors 3-/5. Elbow flexors 3/5. Elbow extensors 3/5. Health Concierge strong. Left Upper Extremity: Shoulder flexors 3-/5. Shoulder abductors 3-/5. Elbow flexors 3/5. Elbow extensors 3/5. Health Concierge strong. Right Lower Extremity: Hip flexors 3-/5. Hip abductors 3/5. Knee flexors 3-/5. Knee extensors 3-/5. Ankle dorsiflexors 3/5. Ankle plantarflexors 3-/5. Left Lower Extremity: Hip flexors 2/5. Hip abductors 3/5. Knee flexors 3-/5. Knee extensors 3-/5. Ankle dorsiflexors 3/5. Ankle plantarflexors 3-/5. BED MOBILITY/TRANSFERS? Supine-sit: SBA with HOB at 20 degrees with cueing and encouragement for movement initiation ? Sit-stand: SBA? Stand-sit: SBA ? Bed-chair: SBA ? GAIT? Assistive Device: No AD? Weight bearing: Full Assist: SBA ? Distance: 5' x2 ? Deviation: None ? Balance:? Static Sitting: normal Dynamic Sitting: normal Static Standing: fair Dynamic Standing: fair Assessment:?? Patient is a 77 year old female referred to physical therapy services with the diagnosis of Alcohol abuse.? Patient presents with clinical signs and symptoms consistent with? clinical signs and symptoms consistent with current/admitting diagnoses that have resulted to mobility limitations, instability, generalized weakness, and impairment of motor control as demonstrated by the following impairment level findings: 1.? Decreased strength to B UE/LE major muscle groups 2.? Decreased ROM of B UE/LE Impairments are contributing to the following functional limitations: 2.? Inability to independently transfer 3.? Increase completion time for mobility ADL performance 4.? Increased fall risk based on history/strength Goals:Assess transfers and ambulation Goals X1 week 1. Supine-Sit independent NOT MET 2. Sit-Supine independent NOT MET 3. Sit-Stand supervised NOT MET 4. Stand-Sit supervised NOT MET 5. Bed-Chair supervised NOT MET 6. Chair-Bed supervised NOT MET 7.?? gait on level surface with use of RW NOT MET 8.? Stair negotiation while holding onto bilateral rails for at least 5 steps without report of pain nor dyspnea NOT MET 9. Good static and dynamic standing balance/tolerance NOT MET DISCHARGE RECOMMENDATIONS: ?? Home with no services [] [X] ? Home with services.? Home when medically cleared by hospitalist.? Patient will benefit from home health PT services in order to progress mobility level using least restrictive assistive ambulatory device, assess home safety, identify additional equipment needs, and establish a functional maintenance program that will increase ability of patient to remain at home. [] ? Home with outpatient PT [] [] ? SNF for continued rehabilitation [] [] ? C[employer] Operations Agent Care [] [] ? SNF versus LTC based on ability to participate and progress TREATMENT CODE/TIME: NC Thank you for the opportunity to participate in the care of this patient. Tawana Cruz PT, DPT, CLT [facility] [place], [place]
== END 2022-08-01 12:56 | disposition home or self-care (01) | DRG 392 ==
LOC: ER 19:17 → ICU 19:37
PROVIDERS: Family Medicine; Internal Medicine; Admitting Provider Family Medicine; Emergency Provider Emergency Medicine; PCP Family Medicine; Visit Provider Family Medicine
DX: K29.20 Alcoholic gastritis without bleeding (principal); N30.00 Acute cystitis without hematuria; E83.42 Hypomagnesemia; R74.8 Abnormal levels of other serum enzymes; F10.10 Alcohol abuse, uncomplicated; K70.31 Alcoholic cirrhosis of liver with ascites; E86.0 Dehydration; N39.46 Mixed incontinence; F41.9 Anxiety disorder, unspecified; F32.A Depression, unspecified; E04.1 Nontoxic single thyroid nodule; R91.8 Other nonspecific abnormal finding of lung field; F43.10 Post-traumatic stress disorder, unspecified; E87.6 Hypokalemia; R29.6 Repeated falls; D50.9 Iron deficiency anemia, unspecified; K21.9 Gastro-esophageal reflux disease without esophagitis; R60.0 Localized edema; I10 Essential (primary) hypertension; M47.22 Other spondylosis with radiculopathy, cervical region; B96.20 Unspecified Escherichia coli [E. coli] as the cause of diseases classified elsewhere; Z66 Do not resuscitate; D69.6 Thrombocytopenia, unspecified; Z86.16 Personal history of COVID-19
CPT/HCPCS: 36592; 76942; 80048; 80053; 83690; 86022; 87637; 93005; 96361; 96365; 96366; 96375; 97161; 97530; 99222; 99284; 99285; 71046; 80320; 81003; 83735; 84484; 85025; 85610; 87086; 93010; 94640; 99232; 99239; J2060; J2405; J3480; J7620; J7626

== ENCOUNTER 2022-08-08 06:18 | Emergency (ER) | payer MEDICARE, SELFPAY ==
[2022-08-08 06:19] VITALS: BP 144/80; PULSE 98; RESP 16; TEMP 37; O2SAT 96
--- NOTE | 2022-08-08 06:40 | ED.GENADUL_ITS ---
Discharge Plan Disposition Patient Disposition: Home Condition: Good Discharge Details Chief Complaint: Abd Prob Clinical Impression: Abdominal ascites Primary Care Provider: Lavelle Galindo ED Provider: Paul Chavira Home Meds and New Rx's Prescriptions: No Action Xiidra 5 % dropperette 1 drp ophthalmic (eye) BID Rx Instructions: administer approximately 12 hours apart melatonin 3 mg capsule 3 mg PO .pm PRN (Reason: sleep) Qty: 90 4RF Rx Instructions: take in the middle of the night if you cannot get back to sleep ( total dose per 24 hrs - 9mg) budesonide [Pulmicort] 0.5 mg/2 mL suspension for nebulization 0.5 mg inhalation DAILY Qty: 60 5RF ipratropium-albuterol 0.5 mg-3 mg(2.5 mg base)/3 mL solution for nebulization 3 ml inhalation Q6H PRN Myrbetriq 50 mg tablet extended release 24 hr 50 mg PO DAILY Qty: 30 12RF lorazepam 1 mg tablet 1 mg PO QHS PRN (Reason: sleep) Qty: 20 0RF albuterol sulfate [Ventolin HFA] 90 mcg/actuation HFA aerosol inhaler 2 puff inhalation QID PRN (Reason: shortness of breath or wheezing) Qty: 8.5 1RF amlodipine 10 mg tablet 10 mg PO DAILY Qty: 90 3RF buspirone 5 mg tablet 5 mg PO BID Qty: 60 5RF folic acid 1 mg tablet 1 mg PO DAILY Qty: 90 3RF melatonin 3 mg capsule 6 mg PO HS Qty: 180 3RF metoprolol tartrate 50 mg tablet 50 mg PO DAILY Qty: 90 3RF mirtazapine 7.5 mg tablet 7.5 mg PO QHS Qty: 90 4RF ondansetron 4 mg tablet,disintegrating 4 mg PO Q8H PRN (Reason: nausea and vomiting) Qty: 20 2RF pantoprazole 40 mg tablet,delayed release (DR/EC) 40 mg PO DAILY Qty: 90 3RF sucralfate 1 gram tablet 1 g PO BID Qty: 60 11RF thiamine HCl (vitamin B1) 100 mg tablet 100 mg PO DAILY Qty: 90 3RF valacyclovir [Valtrex] 500 mg tablet 500 mg PO DAILY Qty: 90 3RF Rx Instructions: Take 500 mg BID for 3 days, then take daily fluticasone propionate 50 mcg/actuation spray,suspension 2 spray NS daily prn Qty: 16 5RF cyanocobalamin (vitamin B-12) [Vitamin B-12] 500 mcg tablet 1,000 mcg PO DAILY Qty: 180 3RF ferrous sulfate 325 mg (65 mg iron) tablet 325 mg PO BID Qty: 180 3RF Rx Instructions: do not take within 2 hours of antibiotics furosemide 20 mg tablet 20 mg PO BID@0830,1600 Qty: 180 3RF multivitamin [Multiple Vitamins] Tablet 1 tab PO DAILY Qty: 90 3RF quetiapine 25 mg tablet See Rx Instructions PO BID Qty: 60 5RF Rx Instructions: 0.5 tab PO twice a day; spironolactone [Aldactone] 50 mg tablet 50 mg PO BID Qty: 180 3RF venlafaxine 75 mg capsule,extended release 24hr 75 mg PO DAILY Qty: 90 3RF Hold Instructions: Home Medication placed on hold at Doctor's office aspirin 81 mg tablet,delayed release (DR/EC) 81 mg PO DAILY Qty: 90 3RF carboxymethylcellulose sodium [Refresh Plus] 0.5 % Dropperette 1 drp OU Q4H WHILE AWAKE Qty: 30 0RF Label Comments: 08/15/19 pt states that she took her blister pack of meds but that she vomited them up pantoprazole 40 mg Tablet,Delayed Release (Dr/Ec) 40 mg PO BID@07,1999 Qty: 60 0RF albuterol sulfate 90 mcg/actuation HFA aerosol inhaler 2 puff inhalation Q6H PRN (Reason: shortness of breath or wheezing) Qty: 8.5 0RF Discharge Instructions Additional Instructions: Please follow-up closely with your primary care provider and your surgeon for future removal of abdominal ascites. If you notice any worsening of your symptoms, or any new symptoms such as vomiting, diarrhea, fever, chills, shortness of breath, chest pain, numbness, weakness, or fainting , please return immediately to the emergency department for reevaluation. Please follow up with your primary care provider as soon as possible for reassessment and reevaluation. As always, it was a pleasure part icipating in your medical care today. Referrals: Lavelle Galindo MD [Primary Care Provider] - Medical Decision Making 77-year-old female with a past medical history of chronic cirrhosis of the liver, asthma/reactive airway disease, alcoholic cirrhosis, GERD, previous GI bleeds, palliative care patient in the past, who presents today specifically with a request of wanting the fluid taken off of her ascites. She states that since she was last here about 10 to 12 days ago her ascites has returned and she would like it removed. She denies fever or chills. She has not followed up with her primary care provider as she states that he has been on vacation. She has no other complaints currently. She stated that she did have some mild achiness in her abdomen but denies any significant pain. She denies any vomiting. She does admit to intermittent diarrhea but has been able to drink well. She states that because of her abdominal bloating she has not been able to drink alcohol which has been frustration. Exam demonstrates no signs of an acute or peritoneal abdomen whatsoever. She has no fever. She is tolerating p.o. I did discuss risks and benefits of procedure, and the patient consented and requested procedure immediately. No clinical evidence of an acute abdomen requiring surgical intervention. Paracen tesis was performed and 2 L of ascites fluid were removed. Ascites fluid is clear, jayne in color, shows no cloudiness to suggest spontaneous bacterial peritonitis. After fluid was removed patient feels better. She has no other current request. Patient will be discharged. I have extensively reviewed the treatment plan and discharge instructions with the patient. I have addressed all patient concerns at this time. The patient was made aware of what symptoms to monitor for that would warrant a return to the emergency department. Discussed the plan with the patient, they demonstrate verbal understanding and agreement with our assessment and plan at this time. The documentation in this chart was dictated using [employer] dictation software. Please excuse any dictation errors. Sign Out No HPI General Date/Time Provider Initiated Documentation: 08/08/22 06:40 . HPI Narrative: 77-year-old female with a past medical history of chronic cirrhosis of the liver, asthma/reactive airway disease, alcoholic cirrhosis, GERD, previous GI bleeds, palliative care patient in the past, who presents today specifically with a request of wanting the fluid taken off of her ascites. She states that since she was last here about 10 to 12 days ago her ascites has returned and she would like it removed. She denies fever or chills. She has not followed up with her primary care provider as she states that he has been on vacation. She has no other complaints currently. She stated that she did have some mild achiness in her abdomen but denies any significant pain. She denies any vomiting. She does admit to intermittent diarrhea but has been able to drink we ll. She states that because of her abdominal bloating she has not been able to drink alcohol which has been frustration. Related Data Home Medications Medication Instructions Recorded Confirmed carboxymethylcellulose sodium 0.5 1 drp OU Q4H WHILE AWAKE #30 ea 06/20/19 08/03/22 % eye drops in a dropperette (Refresh Plus) lifitegrast 5 % eye drops in a 1 drp ophthalmic (eye) BID 08/05/20 08/03/22 dropperette (Xiidra) ipratropium 0.5 mg-albuterol 3 mg 3 ml inhalation Q6H PRN 12/25/21 08/03/22 (2.5 mg base)/3 mL nebulization soln albuterol sulfate 90 mcg/actuation 2 puff inhalation QID PRN 02/08/22 08/03/22 aerosol inhaler (Ventolin HFA) shortness of breath or wheezing #8.5 grams amlodipine 10 mg tablet 10 mg PO DAILY #90 tabs 02/08/22 08/03/22 buspirone 5 mg tablet 5 mg PO BID #60 tabs 02/08/22 08/03/22 folic acid 1 mg tablet 1 mg PO DAILY #90 tabs 02/08/22 08/03/22 melatonin 3 mg capsule 6 mg PO HS #180 caps 02/08/22 08/03/22 metoprolol tartrate 50 mg tablet 50 mg PO DAILY #90 tabs 02/08/22 08/03/22 mirtazapine 7.5 mg tablet 7.5 mg PO QHS #90 tabs 02/08/22 08/03/22 ondansetron 4 mg disintegrating 4 mg PO Q8H PRN nausea and 02/08/22 08/03/22 tablet vomiting #20 tabs pantoprazole 40 mg tablet,delayed 40 mg PO DAILY #90 tabs 02/08/22 08/03/22 release sucralfate 1 gram tablet 1 g PO BID #60 tabs 02/08/22 08/03/22 thiamine HCl (vitamin B1) 100 mg 100 mg PO DAILY #90 tabs 02/08/22 08/03/22 tablet valacyclovir 500 mg tablet 500 mg PO DAILY #90 tabs 02/08/22 08/03/22 (Valtrex) fluticasone propionate 50 2 spray NS daily prn #16 grams 03/06/22 08/03/22 mcg/actuation nasal spray,suspension budesonide 0.5 mg/2 mL suspension 0.5 mg (2 mL) inhalation DAILY #60 05/06/22 08/03/22 for nebulization (Pulmicort) mL melatonin 3 mg capsule 3 mg PO .pm PRN sleep #90 caps 05/12/22 08/03/22 pantoprazole 40 mg tablet,delayed 40 mg PO BID@0730,2000 #60 tabs 05/21/22 08/03/22 release lorazepam 1 mg tablet 1 mg PO QHS PRN sleep #20 tabs 07/08/22 08/03/22 cyanocobalamin (vitamin B-12) 500 1,000 mcg PO DAILY #180 tabs 07/10/22 08/03/22 mcg tablet (Vitamin B-12) ferrous sulfate 325 mg (65 mg 325 mg PO BID #180 tabs 07/10/22 08/03/22 iron) tablet furosemide 20 mg tablet 20 mg PO BID@0830,1600 #180 tabs 07/10/22 08/03/22 multivitamin (Multiple Vitamins 1 tab PO DAILY #90 tabs 07/10/22 08/03/22 tablet) quetiapine 25 mg tablet See Rx Instructions PO BID #60 tabs 07/10/22 08/03/22 spironolactone 50 mg tablet 50 mg PO BID #180 tabs 07/10/22 08/03/22 (Aldactone) venlafaxine 75 mg capsule,extended 75 mg PO DAILY #90 caps 07/10/22 08/03/22 release 24 hr albuterol sulfate 90 mcg/actuation 2 puff inhalation Q6H PRN 07/16/22 08/03/22 aerosol inhaler shortness of breath or wheezing #8.5 grams mirabegron 50 mg tablet,extended 50 mg PO DAILY #30 tabs 07/20/22 08/03/22 release 24 hr (Myrbetriq) aspirin 81 mg tablet,delayed 81 mg PO DAILY #90 tabs 08/05/22 release Previous Rx's Medication Instructions Recorded carboxymethylcellulose sodium 0.5 1 drp OU Q4H WHILE AWAKE #30 ea 06/20/ % eye drops in a dropperette (Refresh Plus) albuterol sulfate 90 mcg/actuation 2 puff inhalation QID PRN 02/08/22 aerosol inhaler (Ventolin HFA) shortness of breath or wheezing #8.5 grams amlodipine 10 mg tablet 10 mg PO DAILY #90 tabs 02/08/22 buspirone 5 mg tablet 5 mg PO BID #60 tabs 02/08/22 folic acid 1 mg tablet 1 mg PO DAILY #90 tabs 02/08/22 melatonin 3 mg capsule 6 mg PO HS #180 caps 02/08/22 metoprolol tartrate 50 mg tablet 50 mg PO DAILY #90 tabs 02/08/22 mirtazapine 7.5 mg tablet 7.5 mg PO QHS #90 tabs 02/08/22 ondansetron 4 mg disintegrating 4 mg PO Q8H PRN nausea and 02/08/22 tablet vomiting #20 tabs pantoprazole 40 mg tablet,delayed 40 mg PO DAILY #90 tabs 02/08/22 release sucralfate 1 gram tablet 1 g PO BID #60 tabs 02/08/22 thiamine HCl (vitamin B1) 100 mg 100 mg PO DAILY #90 tabs 02/08/22 tablet valacyclovir 500 mg tablet 500 mg PO DAILY #90 tabs 02/08/22 (Valtrex) fluticasone propionate 50 2 spray NS daily prn #16 grams 03/06/22 mcg/actuation nasal spray,suspension budesonide 0.5 mg/2 mL suspension 0.5 mg (2 mL) inhalation DAILY #60 05/06/22 for nebulization (Pulmicort) mL melatonin 3 mg capsule 3 mg PO .pm PRN sleep #90 caps 05/12/22 pantoprazole 40 mg tablet,delayed 40 mg PO BID@0730,2000 #60 tabs 05/21/22 release lorazepam 1 mg tablet 1 mg PO QHS PRN sleep #20 tabs 07/08/22 cyanocobalamin (vitamin B-12) 500 1,000 mcg PO DAILY #180 tabs 07/10/22 mcg tablet (Vitamin B-12) ferrous sulfate 325 mg (65 mg 325 mg PO BID #180 tabs 07/10/22 iron) tablet furosemide 20 mg tablet 20 mg PO BID@0830,1600 #180 tabs 07/10/22 multivitamin (Multiple Vitamins 1 tab PO DAILY #90 tabs 07/10/22 tablet) quetiapine 25 mg tablet See Rx Instructions PO BID #60 tabs 07/10/22 spironolactone 50 mg tablet 50 mg PO BID #180 tabs 07/10/22 (Aldactone) venlafaxine 75 mg capsule,extended 75 mg PO DAILY #90 caps 07/10/22 release 24 hr albuterol sulfate 90 mcg/actuation 2 puff inhalation Q6H PRN 07/16/22 aerosol inhaler shortness of breath or wheezing #8.5 grams mirabegron 50 mg tablet,extended 50 mg PO DAILY #30 tabs 07/20/22 release 24 hr (Myrbetriq) aspirin 81 mg tablet,delayed 81 mg PO DAILY #90 tabs 08/05/22 release Allergies Allergy/AdvReac Type Severity Reaction Status Date / Time Penicillins Allergy Mild Rash Verified 07/28/22 15:58 ramipril Allergy Unknown ITCHING Verified 07/28/22 15:58 meperidine [From Demerol] AdvReac Severe Nausea Verified 07/28/22 15:58 bupropion AdvReac Mild GI upset Verified 07/28/22 15:58 AMBER Inhibitors AdvReac Unknown COUGH Verified 07/28/22 15:58 alendronate sodium AdvReac Unknown GI Distress Verified 07/28/22 15:58 clarithromycin AdvReac Unknown intolerant Verified 07/28/22 15:58 paroxetine AdvReac Unknown Diarrhea Verified 07/28/22 15:58 General Stated Complaint: Abd Prob JORDAN: 3 Review of Systems All systems reviewed & are unremarkable except as noted in HPI and below PFSH All Active Problems (Updated 08/08/22 @ 06:52 by Paul Chavira DO) Abdominal ascites (Acute) Thrombocytopenia (Chronic) Elevated bilirubin (Acute) Abdominal ascites (Acute) Dehydration (Acute) Mixed stress and urge urinary incontinence (Acute) Cough (Acute) Thyroid nodule (Acute) Anxiety (Chronic) Adverse effect of metronidazole (Acute) Medication monitoring encounter (Acute) Advance care planning (Acute) Cirrhosis of liver with ascites (Acute) Animal bite of right hand with infection (Acute) Umbilical hernia (Acute) 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 ascites (Acute) Hyperbilirubinemia (Acute) Shortness of breath (Acute) Elevated blood pressure reading without diagnosis of hypertension (Acute) Left arm pain (Acute) Ambulatory dysfunction (Acute) Incontinence (Acute) Urge incontinence (Acute) Anorexia (Acute) Headache (Acute) Onychomycosis (Acute) Depression (Chronic) Chest pain (Acute) Foot pain, right (Acute) Tendinitis of left rotator cuff (Acute) Macrocytosis (Acute 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 Leukopenia (Acute) Headache (Acute) Epigastric abdominal pain (Acute) Calcific tendinitis of left shoulder (Acute) Pulmonary mass (Acute) spiculated mass Pneumonia (Acute) Depression with suicidal ideation (Acute) Alcohol abuse (Chronic) Diarrhea (Acute) Epigastric pain (Acute) Dehydration (Acute) Hypokalemia (Acute) Discharge planning issues (Acute) Palliative care patient (Acute) Difficult intravenous access (Acute) Multiple IV attempts, usually requires ultrasound placement. PTSD (post-traumatic stress disorder) (Acute) Anemia (Chronic) Depression (Chronic) Foot pain, right (Acute) T12 compression fracture (Acute) Presacral mass (Chronic) Deviated nasal septum (Acute) Frequent falls (Chronic) Head injury (Acute) Ambulatory dysfunction (Chronic) Shoulder pain, right (Chronic) Suicidal ideation (Acute) Dry eye (Acute) Pruritus (Acute) Dystrophic nail (Acute) AMBER (acute kidney injury) (Acute) Iron deficiency anemia (Chronic) Alcohol abuse (Chronic) Fall (Acute) Atelectasis of left lung (Chronic) Advance directive on file (Acute) Nodule of upper lobe of right lung (Acute ~09/13/18) 09/13/18 [facility]; 12mm SPICULATED -kb Cataract (Chronic 11/07/15) Hypertension (Chronic) high today; she will check readings at home Hyperlipidemia (Chronic) Back pain, chronic (Chronic) Depression (Chronic) Osteopenia (Chronic) Medical History Adjustment disorder with depressed mood Alcoholic ketosis Anemia Cervical radicular pain neck pain and [facility] 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) pls refrain from alcohol Chronic alcoholism she will not stop drinking unless she checks with me, so that we can help her avert withdrawal I do not think she is capable on her own--she would need placement to achieve required goal of 3 months of sobriety Chronic diarrhea Closed right humeral fracture Corneal ulcer, right (~08/23/18) 08/23/18; [facility]- Fracture of humerus, left, closed Genital herpes simplex recurrent gential; suppressive Valtrex GERD (gastroesophageal reflux disease) GI bleed (12/20/16) Hypertension Hypokalemia Hypomagnesemia Incidental lung nodule, greater than or equal to 8mm 1cm, spiculated, stable for many years, recommend f/u in 6 mo Multiple rib fractures 03/11/19 [facility] Non-cardiac chest pain (09/21/16) [facility] [place] 09/21/16 NEGATIVE MP Osteoarthritis Palliative care patient (03/21/17) Pancreatitis, alcoholic, acute Peripheral edema Photophobia of right eye Pleural effusion on left 03/11/19 [facility] Presacral mass (~09/15/18) 09/15/18 [facility] Sciatica right, epidural injuections [facility] Tubular adenoma of colon (01/28/17) Urinary incontinence 01/24/13 urethral suspension and sling at [facility] [place] (bladder suspension 1991) 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 Bladder repair. Repair bladder injury, simple Family History Mother No problems noted. Father , DROWNED at age 50. No problems noted. Sister Personal history of malignant neoplasm MELANOMA Sister No problems noted. Grandfather Personal history of malignant neoplasm STOMACH Grandfather Personal history of malignant neoplasm PROSTATE Grandmother Heart disease ME Acute ill-defined cerebrovascular disease Grandmother Personal history of malignant neoplasm UTERINE Aunt , ME Heart disease ME Aunt , ME Heart disease Brother No problems noted. Social History (Reviewed 08/08/22 @ 06:49 by ARABELLA Tamayo Smoking/Tobacco Use Status: Former Tobacco Use Quit Date: 08/05/20 Smoking risk assessment performed?: Yes Alcohol Intake: current Alcohol Intake frequency: 3 or more drinks per day Alcohol type: hard liquor Drug use: Never Substance use type: does not use Details: has not drank since tuesday Current gender identity: female Do you feel safe at home: Yes Do you feel safe in your relationship?: Yes Exam Narrative Exam Narrative: 1.Const: Well-nourished, Well-developed, appearing stated age 2.Eyes: PERRL, no conjunctival injection, and symmetrical lids. 3.ENT: Atraumatic external nose and ears. Moist MM. Neck: Symmetric, trachea midline, No thyromegaly. 4.CVS: +S1/S2, No murmurs or gallops. Peripheral pulses 2+ and equal in all extremities. Brisk capillary refill in all extremities. 5.RESP: Unlabored respiratory effort. Clear to auscultation bilaterally. No w heezes rales or rhonchi 6.GI: Soft, mild distention from ascites. No guarding. No rebound, no signs of an acute surgical abdomen or symptoms suggestive of spontaneous bacterial peritonitis or peritoneal abdomen. 7.MSK: Normocephalic/Atraumatic, Extremities w/o deformity or ttp No cyanosis or clubbing, Normal movement of all extremities 8.Skin: Warm, Dry. No rashes or lesions. 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 Sensation grossly intact, no focal neurologic deficits. 10.Psych: (AAO) x3. Appropriate mood and affect Course Vital Signs Vital signs: Vital Signs Temperature 37.0 C 08/08/22 06:19 Pulse 98 H 08/08/22 06:19 Respiratory Rate 16 08/08/22 06:19 Blood Pressure 144/80 H 08/08/22 06:19 Pulse Oximetry 96 08/08/22 06:19 Temperature 37.0 C 08/08/22 06:19 Temperature Source Oral 08/08/22 06:19 Pulse 98 H 08/08/22 06:19 Respiratory Rate 16 08/08/22 06:19 Respiratory Effort 08/08/22 06:24 Blood Pressure 144/80 H 08/08/22 06:19 Pulse Oximetry 96 08/08/22 06:19 Pain Level 7 08/08/22 06:19 Procedures Paracentesis Time Out Performed: Yes Local Anesthetic: Lidocaine 1% Amount of anesthesia used (mL): 5 Fluid: clear Post Procedure Exam: awake, alert, normal BP, normal HR and normal SpO2 Patient Tolerated Procedure: well and no complications Complications: none
--- NOTE | 2022-08-08 06:47 | NUR.NOTE ---
Paracentesis performed by . 1.5L removed. Disposed approriately.
--- NOTE | 2022-08-08 08:34 | NUR.NOTE ---
Nursing Note: Referral given to Care Management for help with management of her ascites outpatient with PCP.
== END 2022-08-08 08:11 | disposition home or self-care (01) ==
PROVIDERS: Emergency Provider Student in an Organized Health Care Education/Training Program; PCP Family Medicine
DX: R18.8 Other ascites (principal)
CPT/HCPCS: 49082

== ENCOUNTER 2022-08-15 13:09 | Emergency (ER) | payer MEDICARE, SELFPAY ==
[2022-08-15 13:09] VITALS: BP 168/94; PULSE 101; RESP 14; TEMP 36.4; O2SAT 96
[2022-08-15] MEDS: Spironolactone 50 MG TAB PO (13:25)
[2022-08-15] MEDS: FUROSEMIDE 40 MG, FUROSEMIDE 20 MG 60 MG PO (13:25)
--- NOTE | 2022-08-15 13:35 | ED.GENADUL_ITS ---
Discharge Plan Disposition Patient Disposition: Home Condition: Good Discharge Details Clinical Impression: Noncompliance with medication regimen, Ascites due to chronic alcoholic hepatitis Primary Care Provider: Lavelle Galindo ED Provider: Paul Chavira Home Meds and New Rx's Prescriptions: No Action Xiidra 5 % dropperette 1 drp ophthalmic (eye) BID Rx Instructions: administer approximately 12 hours apart budesonide [Pulmicort] 0.5 mg/2 mL suspension for nebulization 0.5 mg inhalation DAILY Qty: 60 5RF furosemide 20 mg tablet See Rx Instructions PO BID Qty: 180 3RF Rx Instructions: orally twice a day; 3 tabs (60mg) in AM and 2 tabs(40mg in afternoon; ipratropium-albuterol 0.5 mg-3 mg(2.5 mg base)/3 mL solution for nebulization 3 ml inhalation Q6H PRN Myrbetriq 50 mg tablet extended release 24 hr 50 mg PO DAILY Qty: 30 12RF albuterol sulfate [Ventolin HFA] 90 mcg/actuation HFA aerosol inhaler 2 puff inhalation QID PRN (Reason: shortness of breath or wheezing) Qty: 8.5 1RF amlodipine 10 mg tablet 10 mg PO DAILY Qty: 90 3RF buspirone 5 mg tablet 5 mg PO BID Qty: 60 5RF folic acid 1 mg tablet 1 mg PO DAILY Qty: 90 3RF melatonin 3 mg capsule 6 mg PO HS Qty: 180 3RF metoprolol tartrate 50 mg tablet 50 mg PO DAILY Qty: 90 3RF mirtazapine 7.5 mg tablet 7.5 mg PO QHS Qty: 90 4RF ondansetron 4 mg tablet,disintegrating 4 mg PO Q8H PRN (Reason: nausea and vomiting) Qty: 20 2RF sucralfate 1 gram tablet 1 g PO BID Qty: 60 11RF thiamine HCl (vitamin B1) 100 mg tablet 100 mg PO DAILY Qty: 90 3RF valacyclovir [Valtrex] 500 mg tablet 500 mg PO DAILY Qty: 90 3RF Rx Instructions: Take 500 mg BID for 3 days, then take daily fluticasone propionate 50 mcg/actuation spray,suspension 2 spray NS daily prn Qty: 16 5RF cyanocobalamin (vitamin B-12) [Vitamin B-12] 500 mcg tablet 1,000 mcg PO DAILY Qty: 180 3RF ferrous sulfate 325 mg (65 mg iron) tablet 325 mg PO BID Qty: 180 3RF Rx Instructions: do not take within 2 hours of antibiotics multivitamin [Multiple Vitamins] Tablet 1 tab PO DAILY Qty: 90 3RF quetiapine 25 mg tablet See Rx Instructions PO BID Qty: 60 5RF Rx Instructions: 0.5 tab PO twice a day; spironolactone [Aldactone] 50 mg tablet 50 mg PO BID Qty: 180 3RF venlafaxine 75 mg capsule,extended release 24hr 75 mg PO DAILY Qty: 90 3RF Hold Instructions: Home Medication placed on hold at Doctor's office aspirin 81 mg tablet,delayed release (DR/EC) 81 mg PO DAILY Qty: 90 3RF lorazepam 1 mg tablet 1 mg PO QHS PRN (Reason: sleep) Qty: 20 0RF carboxymethylcellulose sodium [Refresh Plus] 0.5 % Dropperette 1 drp OU Q4H WHILE AWAKE Qty: 30 0RF Label Comments: 08/15/19 pt states that she took her blister pack of meds but that she vomited them up pantoprazole 40 mg Tablet,Delayed Release (Dr/Ec) 40 mg PO BID@ Qty: 60 0RF Discharge Instructions Additional Instructions: As we discussed together that having these frequent paracenteses is not beneficial for you, and may be problematic for you in the future. You still elected to have the procedure for comfort. As we discussed it sounds like you have not had any of your medications for the past 10 days. We will have case management follow-up closely with this to see if they can determine how to get your medications. I have given you 2 to 3 days of your home medications in regards to the diuretics. Please take these as it is written on the baggies. If you notice any worsening of your symptoms, or any new symptoms such as vomiting, diarrhea, fever, chills, shortness of breath, chest pain, numbness, weakness, or fainting , please return immediately to the emergency department for reevaluation. Please follow up with your primary care provider as soon as possible for reassessment and reevaluation. As always, it was a pleasure participating in your medical care today. Referrals: Genoveva Young MD, DC [, [facility]] - Lavelle Galindo MD [Primary Care Provider] - Medical Decision Making 77-year-old female with a past medical history of chronic liver failure and chronic ascites secondary to this presents today for abdominal distention and abdominal pressure. Patient has presented to the ER multiple times for draining of her ascites. She states that the pain started this morning which she describes as a pressure. Last drink was 48 hours ago. She denies any fever or chills. She denies any focal pain but just states that she feels like the pressure from the ascites is too much and she wants it drained. She called EMS to have it drained and be brought to the ER. She did contact her surgery office however it is the weekend and she left a message. Of note she has recently been seen by her primary care provider Genoveva Young, who gave her the options of palliative care option versus drain versus medication compliance. She did decide after that conversation to follow-up with surgery as needed, but unfortunately still has needs today on the weekend. Patient also states that she has not taken any of her medications including any of her diuretics for the last 10 days stating my pharmacy screwed up in the hospital screwed up and I have not been able to get any of my meds. Exam demonstrates a slightly distended abdomen, no peritoneal signs, no focal tenderness. Symptoms inconsistent with spontaneous bacterial peritonitis. I discussed very clearly with the patient that continued and repeated paracenteses are not beneficial and will in fact be harmful in regards to protein shifts, as well as the potential for complications secondary to the procedures. Patient understands this, and in spite of this she is still requesting procedure knowing the risks of this. She states that she wants the pressure sensation to be diminished. Procedure was performed, no complications, a liter of fluid was removed. Additionally because the patient has not been taking any of her medications, we will have case management follow-up on this. Additionally I will give her 2 to 3 days of her spironolactone and Lasix with 60 mg of Lasix daily, and 50 mg of spironolactone twice daily. We will give this in a bag for her for home use, with clear instructions regarding how to take it. Discussed red flags for which to return. I have extensively reviewed the treatment plan and discharge instructions with the patient. I have addressed all patient concerns at this time. The patient was made aware of what symptoms to monitor for that would warrant a return to the emergency department. Discussed the plan with the patient, they demonstrate verbal understanding and agreement with our assessment and plan at this time. The documentation in this chart was dictated using Freever dictation software. Please excuse any dictation errors. HPI General Date/Time Provider Initiated Documentation: 08/15/22 13:10 . HPI Narrative: 77-year-old female with a past medical history of chronic liver failure and chronic ascites secondary to this presents today for abdominal distention and abdominal pressure. Patient has presented to the ER multiple times for draining of her ascites. She states that the pain started this morning which she describes as a pressure. Last drink was 48 hours ago. She denies any fever or chills. She denies any focal pain but just states that she feels like the pressure from the ascites is too much and she wants it drained. She called EMS to have it drained and be brought to the ER. She did contact her surgery office however it is the weekend and she left a message. Of note she has recently been seen by her primary care provider Genoveva Young, who gave her the options of palliative care option versus drain versus medication compliance. She did decide after that conversation to follow-up with surgery as needed, but unfortunately still has needs today on the weekend. Patient also states that she has not taken any of her medications including any of her diuretics for the last 10 days stating my pharmacy screwed up in the hospital screwed up and I have not been able to get any of my meds. Related Data Home Medications Medication Instructions Recorded Confirmed carboxymethylcellulose sodium 0.5 1 drp OU Q4H WHILE AWAKE #30 ea 06/20/19 08/15/22 % eye drops in a dropperette (Refresh Plus) lifitegrast 5 % eye drops in a 1 drp ophthalmic (eye) BID 08/05/20 08/15/22 dropperette (Xiidra) ipratropium 0.5 mg-albuterol 3 mg 3 ml inhalation Q6H PRN 12/25/21 08/15/22 (2.5 mg base)/3 mL nebulization soln albuterol sulfate 90 mcg/actuation 2 puff inhalation QID PRN 02/08/22 08/15/22 aerosol inhaler (Ventolin HFA) shortness of breath or wheezing #8.5 grams amlodipine 10 mg tablet 10 mg PO DAILY #90 tabs 02/08/22 08/15/22 buspirone 5 mg tablet 5 mg PO BID #60 tabs 02/08/22 08/15/22 folic acid 1 mg tablet 1 mg PO DAILY #90 tabs 02/08/22 08/15/22 melatonin 3 mg capsule 6 mg PO HS #180 caps 02/08/22 08/15/22 metoprolol tartrate 50 mg tablet 50 mg PO DAILY #90 tabs 02/08/22 08/15/22 mirtazapine 7.5 mg tablet 7.5 mg PO QHS #90 tabs 02/08/22 08/15/22 ondansetron 4 mg disintegrating 4 mg PO Q8H PRN nausea and 02/08/22 08/15/22 tablet vomiting #20 tabs sucralfate 1 gram tablet 1 g PO BID #60 tabs 02/08/22 08/15/22 thiamine HCl (vitamin B1) 100 mg 100 mg PO DAILY #90 tabs 02/08/22 08/15/22 tablet valacyclovir 500 mg tablet 500 mg PO DAILY #90 tabs 02/08/22 08/15/22 (Valtrex) fluticasone propionate 50 2 spray NS daily prn #16 grams 03/06/22 08/15/22 mcg/actuation nasal spray,suspension budesonide 0.5 mg/2 mL suspension 0.5 mg (2 mL) inhalation DAILY #60 05/06/22 08/15/22 for nebulization (Pulmicort) mL pantoprazole 40 mg tablet,delayed 40 mg PO BID@0730,1999 #60 tabs 05/21/22 08/15/22 release cyanocobalamin (vitamin B-12) 500 1,000 mcg PO DAILY #180 tabs 07/10/22 08/15/22 mcg tablet (Vitamin B-12) ferrous sulfate 325 mg (65 mg 325 mg PO BID #180 tabs 07/10/22 08/15/22 iron) tablet multivitamin (Multiple Vitamins 1 tab PO DAILY #90 tabs 07/10/22 08/15/22 tablet) quetiapine 25 mg tablet See Rx Instructions PO BID #60 tabs 07/10/22 08/15/22 spironolactone 50 mg tablet 50 mg PO BID #180 tabs 07/10/22 08/15/22 (Aldactone) venlafaxine 75 mg capsule,extended 75 mg PO DAILY #90 caps 07/10/22 08/11/22 release 24 hr mirabegron 50 mg tablet,extended 50 mg PO DAILY #30 tabs 07/20/22 08/15/22 release 24 hr (Myrbetriq) aspirin 81 mg tablet,delayed 81 mg PO DAILY #90 tabs 08/05/22 08/15/22 release lorazepam 1 mg tablet 1 mg PO QHS PRN sleep #20 tabs 08/10/22 08/15/22 furosemide 20 mg tablet See Rx Instructions PO BID #180 08/11/22 08/15/22 tabs Previous Rx's Medication Instructions Recorded carboxymethylcellulose sodium 0.5 1 drp OU Q4H WHILE AWAKE #30 ea 06/20/ % eye drops in a dropperette (Refresh Plus) albuterol sulfate 90 mcg/actuation 2 puff inhalation QID PRN 02/08/22 aerosol inhaler (Ventolin HFA) shortness of breath or wheezing #8.5 grams amlodipine 10 mg tablet 10 mg PO DAILY #90 tabs 02/08/22 buspirone 5 mg tablet 5 mg PO BID #60 tabs 02/08/22 folic acid 1 mg tablet 1 mg PO DAILY #90 tabs 02/08/22 melatonin 3 mg capsule 6 mg PO HS #180 caps 02/08/22 metoprolol tartrate 50 mg tablet 50 mg PO DAILY #90 tabs 02/08/22 mirtazapine 7.5 mg tablet 7.5 mg PO QHS #90 tabs 02/08/22 ondansetron 4 mg disintegrating 4 mg PO Q8H PRN nausea and 02/08/22 tablet vomiting #20 tabs sucralfate 1 gram tablet 1 g PO BID #60 tabs 02/08/22 thiamine HCl (vitamin B1) 100 mg 100 mg PO DAILY #90 tabs 02/08/22 tablet valacyclovir 500 mg tablet 500 mg PO DAILY #90 tabs 02/08/22 (Valtrex) fluticasone propionate 50 2 spray NS daily prn #16 grams 03/06/22 mcg/actuation nasal spray,suspension budesonide 0.5 mg/2 mL suspension 0.5 mg (2 mL) inhalation DAILY #60 05/06/22 for nebulization (Pulmicort) mL pantoprazole 40 mg tablet,delayed 40 mg PO BID@0730,1999 #60 tabs 05/21/22 release cyanocobalamin (vitamin B-12) 500 1,000 mcg PO DAILY #180 tabs 07/10/22 mcg tablet (Vitamin B-12) ferrous sulfate 325 mg (65 mg 325 mg PO BID #180 tabs 07/10/22 iron) tablet multivitamin (Multiple Vitamins 1 tab PO DAILY #90 tabs 07/10/22 tablet) quetiapine 25 mg tablet See Rx Instructions PO BID #60 tabs 07/10/22 spironolactone 50 mg tablet 50 mg PO BID #180 tabs 07/10/22 (Aldactone) venlafaxine 75 mg capsule,extended 75 mg PO DAILY #90 caps 07/10/22 release 24 hr mirabegron 50 mg tablet,extended 50 mg PO DAILY #30 tabs 07/20/22 release 24 hr (Myrbetriq) aspirin 81 mg tablet,delayed 81 mg PO DAILY #90 tabs 08/05/22 release lorazepam 1 mg tablet 1 mg PO QHS PRN sleep #20 tabs 08/10/22 furosemide 20 mg tablet See Rx Instructions PO BID #180 08/11/22 tabs Allergies Allergy/AdvReac Type Severity Reaction Status Date / Time Penicillins Allergy Mild Rash Verified 08/11/22 11:35 ramipril Allergy Unknown ITCHING Verified 08/11/22 11:35 meperidine [From Demerol] AdvReac Severe Nausea Verified 08/11/22 11:35 bupropion AdvReac Mild GI upset Verified 08/11/22 11:35 AMBER Inhibitors AdvReac Unknown COUGH Verified 08/11/22 11:35 alendronate sodium AdvReac Unknown GI Distress Verified 08/11/22 11:35 clarithromycin AdvReac Unknown intolerant Verified 08/11/22 11:35 paroxetine AdvReac Unknown Diarrhea Verified 08/11/22 11:35 General Stated Complaint: Abd Prob JORDAN: 3 Review of Systems All systems reviewed & are unremarkable except as noted in HPI and below PFSH All Active Problems Abdominal ascites (Acute) Noncompliance with medication regimen (Acute) Ascites due to chronic alcoholic hepatitis (Acute) Thrombocytopenia (Chronic) Elevated bilirubin (Acute) Abdominal ascites (Acute) Dehydration (Acute) Mixed stress and urge urinary incontinence (Acute) Cough (Acute) Thyroid nodule (Acute) Anxiety (Chronic) Adverse effect of metronidazole (Acute) Medication monitoring encounter (Acute) Advance care planning (Acute) Cirrhosis of liver with ascites (Acute) Animal bite of right hand with infection (Acute) Umbilical hernia (Acute) 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 ascites (Acute) Hyperbilirubinemia (Acute) Shortness of breath (Acute) Elevated blood pressure reading without diagnosis of hypertension (Acute) Left arm pain (Acute) Ambulatory dysfunction (Acute) Incontinence (Acute) Urge incontinence (Acute) Anorexia (Acute) Headache (Acute) Onychomycosis (Acute) Depression (Chronic) Chest pain (Acute) Foot pain, right (Acute) Tendinitis of left rotator cuff (Acute) Macrocytosis (Acute 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 Leukopenia (Acute) Headache (Acute) Epigastric abdominal pain (Acute) Calcific tendinitis of left shoulder (Acute) Pulmonary mass (Acute) spiculated mass Pneumonia (Acute) Depression with suicidal ideation (Acute) Alcohol abuse (Chronic) Diarrhea (Acute) Epigastric pain (Acute) Dehydration (Acute) Hypokalemia (Acute) Discharge planning issues (Acute) Palliative care patient (Acute) Difficult intravenous access (Acute) Multiple IV attempts, usually requires ultrasound placement. PTSD (post-traumatic stress disorder) (Acute) Anemia (Chronic) Depression (Chronic) Foot pain, right (Acute) T12 compression fracture (Acute) Presacral mass (Chronic) Deviated nasal septum (Acute) Frequent falls (Chronic) Head injury (Acute) Ambulatory dysfunction (Chronic) Shoulder pain, right (Chronic) Suicidal ideation (Acute) Dry eye (Acute) Pruritus (Acute) Dystrophic nail (Acute) AMBER (acute kidney injury) (Acute) Iron deficiency anemia (Chronic) Alcohol abuse (Chronic) Fall (Acute) Atelectasis of left lung (Chronic) Advance directive on file (Acute) Nodule of upper lobe of right lung (Acute ~09/13/18) 09/13/18 [facility]; 12mm SPICULATED -kb Cataract (Chronic 11/07/15) Hypertension (Chronic) high today; she will check readings at home Hyperlipidemia (Chronic) Back pain, chronic (Chronic) Depression (Chronic) Osteopenia (Chronic) Medical History Adjustment disorder with depressed mood Alcoholic ketosis Anemia Cervical radicular pain neck pain and [facility] 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) pls refrain from alcohol Chronic alcoholism she will not stop drinking unless she checks with me, so that we can help her avert withdrawal I do not think she is capable on her own--she would need placement to achieve required goal of 3 months of sobriety Chronic diarrhea Closed right humeral fracture Corneal ulcer, right (~08/23/18) 08/23/18; [facility]- Fracture of humerus, left, closed Genital herpes simplex recurrent gential; suppressive Valtrex GERD (gastroesophageal reflux disease) GI bleed (12/20/16) Hypertension Hypokalemia Hypomagnesemia Incidental lung nodule, greater than or equal to 8mm 1cm, spiculated, stable for many years, recommend f/u in 6 mo Multiple rib fractures 03/11/19 [facility] [place]cardiac chest pain [place]09[place]21/16[place] [facility] [place] NE[place] Osteoarthritis Palliative care patient (03/21/17) Pancreatitis, alcoholic, acute Peripheral edema Photophobia of right eye Pleural effusion on left 03/11/19 [facility] Presacral mass (~09/15/18) 09/15/18 [facility] Sciatica right, epidural injuections [facility] Tubular adenoma of colon (01/28/17) Urinary incontinence 01[place]24[place]13 [place] [facility] [place] 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 Bladder repair. Repair bladder injury, simple Family History Mother No problems noted. Father , DROWNED at age 50. No problems noted. Sister Personal history of malignant neoplasm MELANOMA Sister No problems noted. Grandfather Personal history of malignant neoplasm STOMACH Grandfather Personal history of malignant neoplasm PROSTATE Grandmother Heart disease CT Acute ill-defined cerebrovascular disease Grandmother Personal history of malignant neoplasm UTERINE Aunt , CT Heart disease CT Aunt , CT Heart disease Brother No problems noted. Social History Smoking/Tobacco Use Status: Former Tobacco Use Quit Date: 08/05/20 Smoking risk assessment performed?: Yes Alcohol Intake: current Alcohol Intake frequency: 3 or more drinks per day Alcohol type: hard liquor Drug use: Never Substance use type: does not use Details: Last alcoholic drink Mike zhong, 2 days ago Current gender identity: female Do you feel safe at home: Yes Do you feel safe in your relationship?: Yes Exam Narrative Exam Narrative: 1.Const: Well-nourished, Well-developed, appearing stated age 2.Eyes: PERRL, no conjunctival injection, and symmetrical lids. 3.ENT: Atraumatic external nose and ears. Moist MM. Neck: Symmetric, trachea midline, No thyromegaly. 4.CVS: +S1/S2, No murmurs or gallops. Peripheral pulses 2+ and equal in all extremities. Brisk capillary refill in all extremities. 5.RESP: Unlabored respiratory effort. Clear to auscultation bilaterally. No wheezes rales or rhonchi 6.GI: Soft, mild distention, no focal pain. Fluidlike ascites notable. No peritoneal signs whatsoever. 7.MSK: Normocephalic/Atraumatic, Extremities w/o deformity or ttp No cyanosis or clubbing, Normal movement of all extremities 8.Skin: Warm, Dry. No rashes or lesions. 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 Sensation grossly intact, no focal neurologic deficits. 10.Psych: (AAO) x3. Appropriate mood and affect Course Vital Signs Vital signs: Vital Signs Temperature 36.4 C L 08/15/22 13:09 Pulse 101 H 08/15/22 13:09 Respiratory Rate 14 08/15/22 13:09 Blood Pressure 168/94 H 08/15/22 13:09 Pulse Oximetry 96 08/15/22 13:09 Temperature 36.4 C L 08/15/22 13:09 Temperature Source Temporal Artery Scan 08/15/22 13:09 Pulse 101 H 08/15/22 13:09 Respiratory Rate 14 08/15/22 13:09 Respiratory Effort Non-Labored 08/15/22 13:15 Blood Pressure 168/94 H 08/15/22 13:09 Blood Pressure Position Supine 08/15/22 13:09 Pulse Oximetry 96 08/15/22 13:09 Oxygen Delivery Method Room Air 08/15/22 13:09 Oxygen Flow Rate 0 08/15/22 13:09 Pain Level 8 08/15/22 13:09 Procedures Paracentesis Time Out Performed: Yes Local Anesthetic: Lidocaine 1% Amount of anesthesia used (mL): 5 Fluid: clear Post Procedure Exam: awake, alert, normal BP and normal HR Patient Tolerated Procedure: well and no complications Complications: none PAWSS Have you Been Recently Intoxicated or Drunk Within the Last 30 days?: Yes Have you Ever Experienced Previous Episodes of Alcohol Withdrawal?: Yes Have you ever Experienced Delirium Tremens(DT)s?: Yes Have you ever undergone Alcohol Rehabilitation Treatment (i.e, inpt ot outpatient treatment programs)?: Yes Have you ever Experienced Blackouts?: Yes Have you ever Combined Alcohol with other Downers within the last 90 days?: Unable to Obtain Have you ever Combined Alcohol with any other Substance of Abuse during the last 90 days?: Unable to Obtain Positive Blood Alcohol level on Presentation? [PCS.BAL]: Unable to Obtain Evidence of Increased Autonomic Activity (i.e. HR>120, tremor, sweating, agitation, nausea)?: No Result: 5
[2022-08-15 13:38] VITALS: BP 168/84; PULSE 101; O2SAT 96
--- NOTE | 2022-08-15 13:40 | NUR.NOTE ---
Nursing Note: referral to cm. gao had meds in 10 days
[2022-08-15 13:46] VITALS: BP 169/94; PULSE 101
[2022-08-15] MEDS: Furosemide 20 MG TAB 240 MG PO (13:56)
[2022-08-15] MEDS: Spironolactone 50 MG TAB 400 MG PO (13:57)
[2022-08-15 14:01] VITALS: BP 172/88; PULSE 101
[2022-08-15 14:10] VITALS: BP 172/88; PULSE 101
== END 2022-08-15 14:13 | disposition home or self-care (01) ==
LOC: ER 13:45
PROVIDERS: Emergency Provider Student in an Organized Health Care Education/Training Program; PCP Family Medicine
DX: K70.11 Alcoholic hepatitis with ascites (principal); Z91.14 Patient's other noncompliance with medication regimen
CPT/HCPCS: 99283

== ENCOUNTER 2022-08-23 14:31 | Emergency (ER) | payer MEDICARE, SELFPAY ==
[2022-08-23] VITALS (40 sets, daily range): BP systolic 138–218; BP diastolic 71–160; PULSE 83–133; RESP 14–37; TEMP 36.8; O2SAT 94–99
--- NOTE | 2022-08-23 15:00 | RT.EKG_ITS ---
APPROVED REPORT Exam: Resting ECG Reason for Exam: tachycardia Patient Location: E HR:121 bpm ECG Measurements Heart Rate 121 AXIS FL 138 P 91 QRSd 91 QRS -29 QT 349 T -7 QTc 496 Conclusion Sinus tachycardia...rate> 99 sinus tachycardia, left axis, normal intervals, non ischemic
--- NOTE | 2022-08-23 15:05 | W.ED.GENAD ---
Discharge Plan Discharge Details Chief Complaint: Nausea/Vomit/Diar Primary Care Provider: Lavelle Galindo ED Provider: Aydin Mauricio Home Meds and New Rx's Prescriptions: No Action Xiidra 5 % dropperette 1 drp ophthalmic (eye) BID Rx Instructions: administer approximately 12 hours apart budesonide [Pulmicort] 0.5 mg/2 mL suspension for nebulization 0.5 mg inhalation DAILY Qty: 60 5RF furosemide 20 mg tablet See Rx Instructions PO BID Qty: 180 3RF Rx Instructions: orally twice a day; 3 tabs (60mg) in AM and 2 tabs(40mg in afternoon; ipratropium-albuterol 0.5 mg-3 mg(2.5 mg base)/3 mL solution for nebulization 3 ml inhalation Q6H PRN Myrbetriq 50 mg tablet extended release 24 hr 50 mg PO DAILY Qty: 30 12RF albuterol sulfate [Ventolin HFA] 90 mcg/actuation HFA aerosol inhaler 2 puff inhalation QID PRN (Reason: shortness of breath or wheezing) Qty: 8.5 1RF amlodipine 10 mg tablet 10 mg PO DAILY Qty: 90 3RF buspirone 5 mg tablet 5 mg PO BID Qty: 60 5RF folic acid 1 mg tablet 1 mg PO DAILY Qty: 90 3RF melatonin 3 mg capsule 6 mg PO HS Qty: 180 3RF metoprolol tartrate 50 mg tablet 50 mg PO DAILY Qty: 90 3RF mirtazapine 7.5 mg tablet 7.5 mg PO QHS Qty: 90 4RF sucralfate 1 gram tablet 1 g PO BID Qty: 60 11RF thiamine HCl (vitamin B1) 100 mg tablet 100 mg PO DAILY Qty: 90 3RF valacyclovir [Valtrex] 500 mg tablet 500 mg PO DAILY Qty: 90 3RF Rx Instructions: Take 500 mg BID for 3 days, then take daily fluticasone propionate 50 mcg/actuation spray,suspension 2 spray NS daily prn Qty: 16 5RF cyanocobalamin (vitamin B-12) [Vitamin B-12] 500 mcg tablet 1,000 mcg PO DAILY Qty: 180 3RF ferrous sulfate 325 mg (65 mg iron) tablet 325 mg PO BID Qty: 180 3RF Rx Instructions: do not take within 2 hours of antibiotics multivitamin [Multiple Vitamins] Tablet 1 tab PO DAILY Qty: 90 3RF quetiapine 25 mg tablet See Rx Instructions PO BID Qty: 60 5RF Rx Instructions: 0.5 tab PO twice a day; spironolactone [Aldactone] 50 mg tablet 50 mg PO BID Qty: 180 3RF venlafaxine 75 mg capsule,extended release 24hr 75 mg PO DAILY Qty: 90 3RF Hold Instructions: Home Medication placed on hold at Doctor's office aspirin 81 mg tablet,delayed release (DR/EC) 81 mg PO DAILY Qty: 90 3RF lorazepam 1 mg tablet 1 mg PO QHS PRN (Reason: sleep) Qty: 20 0RF ondansetron 4 mg tablet,disintegrating 4 mg PO Q8H PRN (Reason: nausea and vomiting) Qty: 20 2RF carboxymethylcellulose sodium [Refresh Plus] 0.5 % Dropperette 1 drp OU Q4H WHILE AWAKE Qty: 30 0RF Label Comments: 08/15/19 pt states that she took her blister pack of meds but that she vomited them up pantoprazole 40 mg Tablet,Delayed Release (Dr/Ec) 40 mg PO BID@ Qty: 60 0RF Medical Decision Making 77-year-old female history of alcohol abuse, alcohol withdrawal, psychiatric disorders, presents brought in by EMS for evaluation of nausea and vomiting that began earlier today, patient Dors his last drink was at 6 AM, does have slight tongue fasciculation and tremor of hands, hypertensive tachycardic on arrival dry heaving into emesis basin. Patient was dropped off in the waiting room into a chair, patient crawled on the ground and was laying on the ground upon initial presentation. No external signs of trauma. Abdomen soft nontender nondistended. Concern for alcohol induced gastritis versus pancreatitis versus early alcohol withdrawal lower suspicion for bowel obstruction or appendicitis or enterocolitis, patient has a history of cholecystectomy; trial of fluids antiemetics antihistamine and benzodiazepine. Basic labs EKG close reassessment if no response to medications and fluids consider further labs and imaging. 23: 51 patient resting comfortably doing much better after Ativan, and fluids, tremors have resolved no further vomiting. Patient was persistently tachycardic, patient did not take her medications today which include metoprolol after 1 dose of metoprolol tartrate patient's heart rate went from 120s to now 87 bpm. 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 HPI General Date/Time Provider Initiated Documentation: 08/23/22 14:54. HPI Narrative: 77-year-old female history of alcohol abuse, pression, PTSD, presents with nausea and vomiting over the last day, patient brought in by ambulance, patient lives alone with her dog. Patient lying on the ground of the waiting room on initial encounter was picked up placed in wheelchair and taken to triage for further evaluation. Patient endorses crawling on the ground after being dropped off by EMS. Endorses last drink at 6 AM, normal bowel movement yesterday, history of cholecystectomy Related Data Home Medications Medication Instructions Recorded Confirmed carboxymethylcellulose sodium 0.5 1 drp OU Q4H WHILE AWAKE #30 ea 06/20/19 08/23/22 % eye drops in a dropperette (Refresh Plus) lifitegrast 5 % eye drops in a 1 drp ophthalmic (eye) BID 08/05/20 08/23/22 dropperette (Xiidra) ipratropium 0.5 mg-albuterol 3 mg 3 ml inhalation Q6H PRN 12/25/21 08/23/22 (2.5 mg base)/3 mL nebulization soln albuterol sulfate 90 mcg/actuation 2 puff inhalation QID PRN 02/08/22 08/23/22 aerosol inhaler (Ventolin HFA) shortness of breath or wheezing #8.5 grams amlodipine 10 mg tablet 10 mg PO DAILY #90 tabs 02/08/22 08/23/22 buspirone 5 mg tablet 5 mg PO BID #60 tabs 02/08/22 08/23/22 folic acid 1 mg tablet 1 mg PO DAILY #90 tabs 02/08/22 08/23/22 melatonin 3 mg capsule 6 mg PO HS #180 caps 02/08/22 08/23/22 metoprolol tartrate 50 mg tablet 50 mg PO DAILY #90 tabs 02/08/22 08/23/22 mirtazapine 7.5 mg tablet 7.5 mg PO QHS #90 tabs 02/08/22 08/23/22 sucralfate 1 gram tablet 1 g PO BID #60 tabs 02/08/22 08/23/22 thiamine HCl (vitamin B1) 100 mg 100 mg PO DAILY #90 tabs 02/08/22 08/23/22 tablet valacyclovir 500 mg tablet 500 mg PO DAILY #90 tabs 02/08/22 08/23/22 (Valtrex) fluticasone propionate 50 2 spray NS daily prn #16 grams 03/06/22 08/23/22 mcg/actuation nasal spray,suspension budesonide 0.5 mg/2 mL suspension 0.5 mg (2 mL) inhalation DAILY #60 05/06/22 08/23/22 for nebulization (Pulmicort) mL pantoprazole 40 mg tablet,delayed 40 mg PO BID@0730,1999 #60 tabs 05/21/22 08/23/22 release cyanocobalamin (vitamin B-12) 500 1,000 mcg PO DAILY #180 tabs 07/10/22 08/23/22 mcg tablet (Vitamin B-12) ferrous sulfate 325 mg (65 mg 325 mg PO BID #180 tabs 07/10/22 08/23/22 iron) tablet multivitamin (Multiple Vitamins 1 tab PO DAILY #90 tabs 07/10/22 08/23/22 tablet) quetiapine 25 mg tablet See Rx Instructions PO BID #60 tabs 07/10/22 08/23/22 spironolactone 50 mg tablet 50 mg PO BID #180 tabs 07/10/22 08/23/22 (Aldactone) venlafaxine 75 mg capsule,extended 75 mg PO DAILY #90 caps 07/10/22 08/23/22 release 24 hr mirabegron 50 mg tablet,extended 50 mg PO DAILY #30 tabs 07/20/22 08/23/22 release 24 hr (Myrbetriq) aspirin 81 mg tablet,delayed 81 mg PO DAILY #90 tabs 08/05/22 08/23/22 release lorazepam 1 mg tablet 1 mg PO QHS PRN sleep #20 tabs 08/10/22 08/23/22 furosemide 20 mg tablet See Rx Instructions PO BID #180 08/11/22 08/23/22 tabs ondansetron 4 mg disintegrating 4 mg PO Q8H PRN nausea and 08/17/22 08/23/22 tablet vomiting #20 tabs Previous Rx's Medication Instructions Recorded carboxymethylcellulose sodium 0.5 1 drp OU Q4H WHILE AWAKE #30 ea 06/20/ % eye drops in a dropperette (Refresh Plus) albuterol sulfate 90 mcg/actuation 2 puff inhalation QID PRN 02/08/22 aerosol inhaler (Ventolin HFA) shortness of breath or wheezing #8.5 grams amlodipine 10 mg tablet 10 mg PO DAILY #90 tabs 02/08/22 buspirone 5 mg tablet 5 mg PO BID #60 tabs 02/08/22 folic acid 1 mg tablet 1 mg PO DAILY #90 tabs 02/08/22 melatonin 3 mg capsule 6 mg PO HS #180 caps 02/08/22 metoprolol tartrate 50 mg tablet 50 mg PO DAILY #90 tabs 02/08/22 mirtazapine 7.5 mg tablet 7.5 mg PO QHS #90 tabs 02/08/22 sucralfate 1 gram tablet 1 g PO BID #60 tabs 02/08/22 thiamine HCl (vitamin B1) 100 mg 100 mg PO DAILY #90 tabs 02/08/22 tablet valacyclovir 500 mg tablet 500 mg PO DAILY #90 tabs 02/08/22 (Valtrex) fluticasone propionate 50 2 spray NS daily prn #16 grams 03/06/22 mcg/actuation nasal spray,suspension budesonide 0.5 mg/2 mL suspension 0.5 mg (2 mL) inhalation DAILY #60 05/06/22 for nebulization (Pulmicort) mL pantoprazole 40 mg tablet,delayed 40 mg PO BID@0730,2000 #60 tabs 05/21/22 release cyanocobalamin (vitamin B-12) 500 1,000 mcg PO DAILY #180 tabs 07/10/22 mcg tablet (Vitamin B-12) ferrous sulfate 325 mg (65 mg 325 mg PO BID #180 tabs 07/10/22 iron) tablet multivitamin (Multiple Vitamins 1 tab PO DAILY #90 tabs 07/10/22 tablet) quetiapine 25 mg tablet See Rx Instructions PO BID #60 tabs 07/10/22 spironolactone 50 mg tablet 50 mg PO BID #180 tabs 07/10/22 (Aldactone) venlafaxine 75 mg capsule,extended 75 mg PO DAILY #90 caps 07/10/22 release 24 hr mirabegron 50 mg tablet,extended 50 mg PO DAILY #30 tabs 07/20/22 release 24 hr (Myrbetriq) aspirin 81 mg tablet,delayed 81 mg PO DAILY #90 tabs 08/05/22 release lorazepam 1 mg tablet 1 mg PO QHS PRN sleep #20 tabs 08/10/22 furosemide 20 mg tablet See Rx Instructions PO BID #180 08/11/22 tabs ondansetron 4 mg disintegrating 4 mg PO Q8H PRN nausea and 08/17/22 tablet vomiting #20 tabs Allergies Allergy/AdvReac Type Severity Reaction Status Date / Time Penicillins Allergy Mild Rash Verified 08/23/22 14:36 ramipril Allergy Unknown ITCHING Verified 08/23/22 14:36 meperidine [From Demerol] AdvReac Severe Nausea Verified 08/23/22 14:36 bupropion AdvReac Mild GI upset Verified 08/23/22 14:36 AMBER Inhibitors AdvReac Unknown COUGH Verified 08/23/22 14:36 alendronate sodium AdvReac Unknown GI Distress Verified 08/23/22 14:36 clarithromycin AdvReac Unknown intolerant Verified 08/23/22 14:36 paroxetine AdvReac Unknown Diarrhea Verified 08/23/22 14:36 General Stated Complaint: Nausea/Vomit/Diar JORDAN: 3 Review of Systems Narrative: Review of Systems Constitutional: negative Eyes: negative ENT: negative Cardiovascular: negative Respiratory: negative Gastrointestinal: Nausea, vomiting : negative Musculoskeletal: negative Skin: negative Neurologic: negative Psych: negative PFSH All Active Problems (Updated 08/16/22 @ 00:05 by BARB ACHARYA) Abdominal ascites (Acute) Noncompliance with medication regimen (Acute) Ascites due to chronic alcoholic hepatitis (Acute) Thrombocytopenia (Chronic) Elevated bilirubin (Acute) Abdominal ascites (Acute) Dehydration (Acute) Mixed stress and urge urinary incontinence (Acute) Thyroid nodule (Acute) Anxiety (Chronic) Adverse effect of metronidazole (Acute) Medication monitoring encounter (Acute) Advance care planning (Acute) Cirrhosis of liver with ascites (Acute) Animal bite of right hand with infection (Acute) Umbilical hernia (Acute) 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 ascites (Acute) Hyperbilirubinemia (Acute) Shortness of breath (Acute) Elevated blood pressure reading without diagnosis of hypertension (Acute) Left arm pain (Acute) Ambulatory dysfunction (Acute) Incontinence (Acute) Urge incontinence (Acute) Anorexia (Acute) Headache (Acute) Onychomycosis (Acute) Depression (Chronic) Chest pain (Acute) Foot pain, right (Acute) Tendinitis of left rotator cuff (Acute) Macrocytosis (Acute 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 Leukopenia (Acute) Headache (Acute) Epigastric abdominal pain (Acute) Calcific tendinitis of left shoulder (Acute) Pulmonary mass (Acute) spiculated mass Pneumonia (Acute) Depression with suicidal ideation (Acute) Alcohol abuse (Chronic) Diarrhea (Acute) Epigastric pain (Acute) Dehydration (Acute) Hypokalemia (Acute) Discharge planning issues (Acute) Palliative care patient (Acute) Difficult intravenous access (Acute) Multiple IV attempts, usually requires ultrasound placement. PTSD (post-traumatic stress disorder) (Acute) Anemia (Chronic) Depression (Chronic) Foot pain, right (Acute) T12 compression fracture (Acute) Presacral mass (Chronic) Deviated nasal septum (Acute) Frequent falls (Chronic) Head injury (Acute) Ambulatory dysfunction (Chronic) Shoulder pain, right (Chronic) Suicidal ideation (Acute) Dry eye (Acute) Pruritus (Acute) Dystrophic nail (Acute) AMBER (acute kidney injury) (Acute) Iron deficiency anemia (Chronic) Alcohol abuse (Chronic) Fall (Acute) Atelectasis of left lung (Chronic) Advance directive on file (Acute) Nodule of upper lobe of right lung (Acute ~09/13/18) 09/13/18 [facility]; 12mm SPICULATED -kb Cataract (Chronic 11/07/15) Hypertension (Chronic) high today; she will check readings at home Hyperlipidemia (Chronic) Back pain, chronic (Chronic) Depression (Chronic) Osteopenia (Chronic) Medical History Adjustment disorder with depressed mood Alcoholic ketosis Anemia Cervical radicular pain neck pain and [facility] 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) pls refrain from alcohol Chronic alcoholism she will not stop drinking unless she checks with me, so that we can help her avert withdrawal I do not think she is capable on her own--she would need placement to achieve required goal of 3 months of sobriety Chronic diarrhea Closed right humeral fracture Corneal ulcer, right (~08/23/18) 08/23/18; [facility] Fracture of humerus, left, closed Genital herpes simplex recurrent gential; suppressive Valtrex GERD (gastroesophageal reflux disease) GI bleed (12/20/16) Hypertension Hypokalemia Hypomagnesemia Incidental lung nodule, greater than or equal to 8mm 1cm, spiculated, stable for many years, recommend f/u in 6 mo Multiple rib fractures 03/11/19 [facility] Non-cardiac chest pain (09/21/16) [facility] 09/21[place]16 NEGATIVE MP Osteoarthritis Palliative care patient (03/21/17) Pancreatitis, alcoholic, acute Peripheral edema Photophobia of right eye Pleural effusion on left 03/11/19 [facility] Presacral mass (~09/15/18) 09/15/18 [facility] Sciatica right, epidural injuections [facility] Tubular adenoma of colon (01/28/17) Urinary incontinence 01/24/13 urethral suspension and sling at [facility] (bladder suspension 1991) 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 Bladder repair. Repair bladder injury, simple Family History Mother No problems noted. Father , DROWNED at age 50. No problems noted. Sister Personal history of malignant neoplasm MELANOMA Sister No problems noted. Grandfather Personal history of malignant neoplasm STOMACH Grandfather Personal history of malignant neoplasm PROSTATE Grandmother Heart disease [place] Acute ill-defined cerebrovascular disease Grandmother Personal history of malignant neoplasm UTERINE Aunt , [place] Heart disease [place] Aunt , [place] Heart disease Brother No problems noted. Social History Smoking/Tobacco Use Status: Former Tobacco Use Quit Date: 08/05/20 Smoking risk assessment performed?: Yes Alcohol Intake: current Alcohol Intake frequency: 3 or more drinks per day Alcohol type: hard liquor Drug use: Never Substance use type: does not use Details: Last alcoholic drink Mike zhong, 2 days ago Current gender identity: female Do you feel safe at home: Yes Do you feel safe in your relationship?: Yes Exam Narrative Exam Narrative: Physical Examination General: alert, awake, disheveled, uncomfortable appearing HEENT: normocephalic, atraumatic; PERRL, EOM intact, conjunctiva normal; no nasal discharge; mild tongue fasciculation Neck: supple, trachea midline; full ROM Chest: normal to inspection Respiratory: normal respiratory effort, speaking in full sentences, clear to auscultation, no wheezing, rales or rhonchi Cardiac: Tachycardia, regular rhythm, S1S2 intact, no murmurs rubs or gallops GI: abdomen soft, non-tender, non-distended; no palpable mass or hepatosplenomegaly Skin: no lesions, rashes or trauma appreciated Neuro: AAOx3, normal speech, moving all extremities; slight tremor of hands Course Vital Signs Vital signs: Vital Signs Temperature 36.8 C 08/23/22 14:30 Pulse 133 H 08/23/22 14:30 Respiratory Rate 20 08/23/22 14:30 Blood Pressure 218/121 H 08/23/22 14:30 Pulse Oximetry 97 08/23/22 14:30 Temperature 36.8 C 08/23/22 14:30 Temperature Source Skin 08/23/22 14:30 Pulse 133 H 08/23/22 14:30 Respiratory Rate 20 08/23/22 14:30 Respiratory Effort 08/23/22 14:36 Blood Pressure 218/121 H 08/23/22 14:30 Blood Pressure Position Sitting 08/23/22 14:30 Pulse Oximetry 97 08/23/22 14:30 Oxygen Delivery Method Room Air 08/23/22 14:30 Oxygen Flow Rate 0 08/23/22 14:30 Pain Level 7 08/23/22 14:30
[2022-08-23] MEDS: Famotidine 20 MG/2 ML VIAL IVP (16:39)
[2022-08-23] MEDS: Lactated Ringers 1,000 ML 1000 ML IV ×2 (16:39→20:01)
[2022-08-23] MEDS: LORazepam 2 MG/ML VIAL 1 MG IVP ×3 (16:39→21:45)
[2022-08-23] MEDS: Ondansetron 4 MG/2 ML VIAL IVP ×2 (16:40→19:41)
[2022-08-23 16:42] LABS: Abs Immature Grans 0.03 10^3/uL (0.0-0.06); Absolute Basophil Count 0.02 10^3/uL (0.0-0.2); Absolute Monocyte Count 0.29 10^3/uL (0.1-0.8); Absolute Neutrophil Count 4.83 10^3/uL (1.2-6.7); Basophils % 0.4; HCT 35.4 % (36.0-46.0); HGB 11.7 g/dL (11.2-15.7); Immature Grans % 0.6; Lymphocytes % 3.7; MCH 32.6 pg (27.0-33.0); MCHC 33.1 % (32.0-36.0); MCV 99 fL (80-95); Monocytes % 5.4; Neutrophils % 89.9; Platelet Count 209 10^3/uL (130-400); RBC 3.59 10^6/uL (3.93-5.22); RDW 14.7 % (11.7-14.6); RDW-SD 53.2 fL; WBC 5.37 10^3/uL (4.4-10.8)
[2022-08-23 17:06] LABS: ALT 36 U/L (14-59); AST 31 U/L (15-37); Albumin 3.9 g/dL (3.4-5.0); Alkaline Phosphatase 303 U/L (46-116); Anion Gap 17.5 mmol/L (3-11); BUN 19 mg/dL (7-18); Bilirubin, Total 5.2 mg/dL (0.2-1.0); CO2 25.5 mmol/L (21.0-32.0); CREATININE 1.3 mg/dL (0.55-1.02); Calcium 10.3 mg/dL (8.5-10.1); Chloride 97 mmol/L (98-107); Estimated GFR 42.62 (mL/min/1.73m2); Glucose 288 mg/dL (74-106); Lipase 48 U/L (73-393); Potassium 3.6 mmol/L (3.5-5.1); Sodium 140 mmol/L (136-145); Total Protein 7.5 g/dL (6.4-8.2)
[2022-08-23 17:12] LABS: ETHANOL BLOOD < 3.0 mg/dL (<10)
--- NOTE | 2022-08-23 17:15 | DI.CT_ITS ---
Exam(s) CT ABDOMEN PELVIS W EXAM: CT ABDOMEN PELVIS W CLINICAL HISTORY: nausea vomiting. TECHNIQUE: Imaging Protocol: Axial computed tomography images with coronal and sagittal reformatted images were created and reviewed CONTRAST MATERIAL: Intravenous: Omnipaque-350 100cc Oral: None COMPARISON: CT CT ABDOMEN PELVIS WO from 07/28/2022 FINDINGS: VISUALIZED LUNG BASES: No nodules nor pleural effusions evident. Multiple healed bilateral rib fract ures are again noted. ABDOMEN: There is no ascites. LIVER: There is perihepatic ascites again evident. Liver is hypodense implying steatosis. No discre te focal hepatic lesions identified. Liver appears mildly cirrhotic. GALLBLADDER/BILIARY: Gallbladder is again noted be surgically absent. CBD is not dilated. PANCREAS: No evidence of pancreatic mass nor dilatation of the pancreatic duct. SPLEEN: Spleen is not enlarged. No obvious intrasplenic lesions. Splenic and portal veins are paten t. ADRENALS: There are no significant adrenal masses. KIDNEYS:Bilateral kidney cysts noted largest measures 3 cm in the anterior right kidney again noted. No new solid renal masses. No calculi. No hydronephrosis. No hydroureter. No obvious abnormality in the urinary bladder.. ABDOMINAL AORTA: Abdominal aorta is not enlarged. LYMPH NODES:There is no retroperitoneal nor paraaortic adenopathy. ABDOMINAL WALL: No evidence of significant anterior abdominal wall nor inguinal hernia. GI: There is no evidence of bowel obstruction, free air, nor abscess. PELVIS: GI: No evidence of appendicitis.No evidence of sigmoid diverticulitis. LYMPH NODES: There is no intrapelvic nor inguinal adenopathy. REPRODUCTIVE: Uterus and adnexal regions appear age-appropriate. The previously described lobulated presacral mass is again noted, unchanged in size, measuring approx imately 6 x 4 x 6 cm it is adjacent to but does not invade the sacrum and is surrounded by fat. URINARY BLADDER: No calculi nor obvious masses evident OSSEOUS: Multilevel chronic degenerative disc disease. Degenerative anterolisthesis L4 upon L5 again noted. No obvious osseous lesions. IMPRESSION: 1. Compared to 07/28/2022 there is again noted ascites, hepatic steatosis and cirrhotic appearing stephanie er. The amount of ascites as perhaps slightly decreased when compared to prior study listed above. No discrete liver mass identified. Spleen size upper normal. 2. Bilateral benign renal cysts are again noted. 3. Previously described presacral noncalcified lobulated 6.2 cm mass appears unchanged. It does not appear to invade adjacent structures, including the adjacent sacrum. RADIATION DOSE DELIVERED: 959.75mGy.cm Total DLP DATA REPOSITORY: All CT scans at this facility are submitted to the National Radiology Data Registry (NRDR) Dose Index Registry (DIR) with the [employer] (ACR). RADIATION OPTIMIZATION: All CT scans at this facility use at least one of these dose optimization te chniques: automated exposure control; mA and/or kV adjustment per patient size (includes targeted exa ms where dose is matched to clinical indication); or iterative reconstruction.
[2022-08-23] MEDS: Omnipaque 350 MG/ML 100 ML BTL IJ (18:21)
[2022-08-23] MEDS: Normal Saline - Diluent 50 ML VIAL IJ (18:21)
[2022-08-23] MEDS: Normal Saline Flush 10 ML SYR IVP (18:23)
--- NOTE | 2022-08-23 19:06 | DI.VRAD_ITS ---
PROCEDURE INFORMATION: Exam: CT Abdomen And Pelvis With Contrast Exam date and time: 08/23/2022 6:17 PM Age: 77 years old Clinical indication: Other: Nausea vomiting TECHNIQUE: Imaging protocol: Computed tomography of the abdomen and pelvis with contrast. Contrast material: OMNIPAQUE 350; Contrast volume: 100 ml; Contrast route: INTRAVENOUS (IV); COMPARISON: CT ABDOMEN PELVIS WO 07/28/2022 6:14 PM and 05/28/2022. FINDINGS: Heart: Cardiomegaly Mediastinal space: Small esophageal hiatal hernia. Liver: Fatty liver. Cirrhotic configuration of the liver. Gallbladder and bile ducts: Cholecystectomy. Pancreas: Normal. No ductal dilation. Spleen: Normal. No splenomegaly. Adrenal glands: Normal. No mass. Kidneys and ureters: Benign bilateral renal cysts. Stomach and bowel: Unremarkable. No obstruction. No mucosal thickening. Appendix: No evidence of appendicitis. Intraperitoneal space: Moderate ascites. Lobulated presacral measuring approximately 6.2 by 3.8 by 6.2 cm in AP, transverse, and craniocaudad dimension. This is best seen on the sagittal series 7, image 55, axial series 8, image 668, and coronal series 6, image 63. This is unchanged from 07/28/2022. It is adjacent to but does not appear to invade the sacrum at the level of the S2. It is surrounded by a halo of fat. Vasculature: Unremarkable. No abdominal aortic aneurysm. Lymph nodes: Unremarkable. No enlarged lymph nodes. Urinary bladder: Unremarkable as visualized. Reproductive: Unremarkable as visualized. Bones/joints: Degenerative arthritis in the spine and pelvis. Old bilateral rib fractures. Soft tissues: Left inguinal hernia containing fluid. Right inguinal hernia containing fat. Other findings: The images are degraded by motion. IMPRESSION: 1. Fatty liver with a cirrhotic configuration 2. Moderate ascites 3. Bilateral renal cysts 4. Stable approximately 6.2 cm right presacral mass. Dictated and Authenticated by: Emi Freitas MD. Ordering:LAUREN Perrin MD
[2022-08-23 19:30] LABS: Bilirubin Negative (Negative); Blood Trace-intact (Negative); Clarity Clear (Clear); Glucose 100 mg/dL (Negative); Ketones Negative (Negative); Leukocyte Esterase Negative (Negative); Nitrite Negative (Negative); Specific Gravity 1.015 (1.005-1.025); pH 8.5 (5-8)
[2022-08-23 19:37] LABS: Bacteria Moderate HPF (Negative); C & S Indicated? Yes; Casts Negative LPF (Negative); Crystals Negative HPF (Negative); Epithelial Cells Few HPF (Negative); Mucus Negative (Negative); RBC 0-2 HPF (0-2)
[2022-08-23 19:41] LABS: *AMPHETAMINES SCREEN URINE Negative (Negative); *BARBITURATES SCREEN URINE Negative (Negative); *BENZODIAZEPINES SCREEN URINE Negative (Negative); Cannabinoids THC Negative (Negative); Cocaine Screen,Urine Negative (Negative); METHADONE URINE SCREEN Negative (Negative); OPIATES URINE SCREEN Negative (Negative)
[2022-08-23 19:42] LABS: Tricyclic Antidepressants Negative (Negative)
[2022-08-23 21:20] LABS: COVID-19 PCR Negative (Negative); Influenza A PCR Negative (Negative); Influenza B PCR Negative (Negative); RSV PCR Negative (Negative)
[2022-08-23 21:22] LABS: Source Nasopharynx
[2022-08-23] MEDS: Metoprolol 25 MG TAB PO (21:55)
[2022-08-24] VITALS (61 sets, daily range): BP systolic 121–172; BP diastolic 69–92; PULSE 87–93; RESP 13–31; TEMP 36.8; O2SAT 97
--- NOTE | 2022-08-24 00:12 | ED.PROG_ITS ---
Date of service: 08/24/22 Time of Service: 00:05 Medical Decision Making 0005 --please see Dr. Mauricio's note for initial presentation, exam and plan. Case endorsed to continue to monitor until able to get a ride with [facility] or EMS. 0600 --no events overnight and patient continues to do well. She was hemodyn amically stable with no signs of acute alcohol withdrawal prior to discharge. We were able to secure transportation and patient will go home this morning. Medical Records Medical records reviewed: Yes I reviewed the patient's medical records. Sign Out Sign Out Data: Sign Out Comment: resolved nausea vomting and mild etoh withdrawal; can call for ride in a couple hours ([facility]? v EMS?) Last updated by Aydin Mauricio MD at 08/23/22 23:55 Discharge Plan Disposition Patient Disposition: Home Condition: Improving Discharge Details Clinical Impression: Alcohol intoxication, Nausea and vomiting Primary Care Provider: Lavelle Galindo ED Provider: Megan Foster Home Meds and New Rx's Prescriptions: New ondansetron 4 mg tablet,disintegrating 4 mg PO TID PRN (Reason: nausea and vomiting) Qty: 6 0RF Continued Xiidra 5 % dropperette 1 drp ophthalmic (eye) BID Rx Instructions: administer approximately 12 hours apart budesonide [Pulmicort] 0.5 mg/2 mL suspension for nebulization 0.5 mg inhalation DAILY Qty: 60 5RF furosemide 20 mg tablet See Rx Instructions PO BID Qty: 180 3RF Rx Instructions: orally twice a day; 3 tabs (60mg) in AM and 2 tabs(40mg in afternoon; ipratropium-albuterol 0.5 mg-3 mg(2.5 mg base)/3 mL solution for nebulization 3 ml inhalation Q6H PRN Myrbetriq 50 mg tablet extended release 24 hr 50 mg PO DAILY Qty: 30 12RF albuterol sulfate [Ventolin HFA] 90 mcg/actuation HFA aerosol inhaler 2 puff inhalation QID PRN (Reason: shortness of breath or wheezing) Qty: 8.5 1RF amlodipine 10 mg tablet 10 mg PO DAILY Qty: 90 3RF buspirone 5 mg tablet 5 mg PO BID Qty: 60 5RF folic acid 1 mg tablet 1 mg PO DAILY Qty: 90 3RF melatonin 3 mg capsule 6 mg PO HS Qty: 180 3RF metoprolol tartrate 50 mg tablet 50 mg PO DAILY Qty: 90 3RF mirtazapine 7.5 mg tablet 7.5 mg PO QHS Qty: 90 4RF sucralfate 1 gram tablet 1 g PO BID Qty: 60 11RF thiamine HCl (vitamin B1) 100 mg tablet 100 mg PO DAILY Qty: 90 3RF valacyclovir [Valtrex] 500 mg tablet 500 mg PO DAILY Qty: 90 3RF Rx Instructions: Take 500 mg BID for 3 days, then take daily fluticasone propionate 50 mcg/actuation spray,suspension 2 spray NS daily prn Qty: 16 5RF cyanocobalamin (vitamin B-12) [Vitamin B-12] 500 mcg tablet 1,000 mcg PO DAILY Qty: 180 3RF ferrous sulfate 325 mg (65 mg iron) tablet 325 mg PO BID Qty: 180 3RF Rx Instructions: do not take within 2 hours of antibiotics multivitamin [Multiple Vitamins] Tablet 1 tab PO DAILY Qty: 90 3RF quetiapine 25 mg tablet See Rx Instructions PO BID Qty: 60 5RF Rx Instructions: 0.5 tab PO twice a day; spironolactone [Aldactone] 50 mg tablet 50 mg PO BID Qty: 180 3RF venlafaxine 75 mg capsule,extended release 24hr 75 mg PO DAILY Qty: 90 3RF Hold Instructions: Home Medication placed on hold at Doctor's office aspirin 81 mg tablet,delayed release (DR/EC) 81 mg PO DAILY Qty: 90 3RF lorazepam 1 mg tablet 1 mg PO QHS PRN (Reason: sleep) Qty: 20 0RF ondansetron 4 mg tablet,disintegrating 4 mg PO Q8H PRN (Reason: nausea and vomiting) Qty: 20 2RF carboxymethylcellulose sodium [Refresh Plus] 0.5 % Dropperette 1 drp OU Q4H WHILE AWAKE Qty: 30 0RF Label Comments: 08/15/19 pt states that she took her blister pack of meds but that she vomited them up pantoprazole 40 mg Tablet,Delayed Release (Dr/Ec) 40 mg PO BID@0730,2000 Qty: 60 0RF Discharge Instructions Instructions: Alcohol Intoxication (ED), Acute Nausea and Vomiting (ED) Additional Instructions: Drink plenty of fluids and get plenty of rest. Take the Zofran as needed?for nausea and vomiting. Follow-up with your primary care doctor in 1 week. Return to the emergency department with any worsening or new concerning symptoms. Discharge Data Discharge Date/Time-TO BE ENTERED AT DEPARTURE: 08/24/22 06:10 Discharge Physician: Megan Foster
== END 2022-08-24 06:10 | disposition home or self-care (01) ==
PROVIDERS: Emergency Medicine; Emergency Provider Physician Assistant; PCP Family Medicine
DX: F10.239 Alcohol dependence with withdrawal, unspecified (principal); F10.229 Alcohol dependence with intoxication, unspecified; I10 Essential (primary) hypertension; Z20.822 Contact with and (suspected) exposure to COVID-19; Z90.49 Acquired absence of other specified parts of digestive tract; Y90.0 Blood alcohol level of less than 20 mg/100 ml; R11.2 Nausea with vomiting, unspecified; R00.0 Tachycardia, unspecified; Z79.899 Other long term (current) drug therapy
CPT/HCPCS: 80053; 80307; 83690; 87077; 87637; 93005; 96361; 96374; 96375; 96376; 99285; 74177; 80320; 81003; 81015; 85025; 87086; 87186; 93010; J2060; J2405; J3490

== ENCOUNTER 2022-08-26 14:27 | Emergency (ER) | payer MEDICARE, SELFPAY ==
[2022-08-26] VITALS (61 sets, daily range): BP systolic 108–162; BP diastolic 47–93; PULSE 88–101; RESP 14–36; TEMP 37; O2SAT 94–100
--- NOTE | 2022-08-26 15:21 | W.ED.GENAD ---
Discharge Plan Disposition Patient Disposition: Home Condition: Stable Discharge Details Clinical Impression: Hypokalemia, Nausea and vomiting Primary Care Provider: Lavelle Galindo ED Provider: Megan Foster Home Meds and New Rx's Prescriptions: Continued Xiidra 5 % dropperette 1 drp ophthalmic (eye) BID Rx Instructions: administer approximately 12 hours apart budesonide [Pulmicort] 0.5 mg/2 mL suspension for nebulization 0.5 mg inhalation DAILY Qty: 60 5RF furosemide 20 mg tablet See Rx Instructions PO BID Qty: 180 3RF Rx Instructions: orally twice a day; 3 tabs (60mg) in AM and 2 tabs(40mg in afternoon; ipratropium-albuterol 0.5 mg-3 mg(2.5 mg base)/3 mL solution for nebulization 3 ml inhalation Q6H PRN Myrbetriq 50 mg tablet extended release 24 hr 50 mg PO DAILY Qty: 30 12RF albuterol sulfate [Ventolin HFA] 90 mcg/actuation HFA aerosol inhaler 2 puff inhalation QID PRN (Reason: shortness of breath or wheezing) Qty: 8.5 1RF amlodipine 10 mg tablet 10 mg PO DAILY Qty: 90 3RF buspirone 5 mg tablet 5 mg PO BID Qty: 60 5RF folic acid 1 mg tablet 1 mg PO DAILY Qty: 90 3RF melatonin 3 mg capsule 6 mg PO HS Qty: 180 3RF metoprolol tartrate 50 mg tablet 50 mg PO DAILY Qty: 90 3RF mirtazapine 7.5 mg tablet 7.5 mg PO QHS Qty: 90 4RF sucralfate 1 gram tablet 1 g PO BID Qty: 60 11RF thiamine HCl (vitamin B1) 100 mg tablet 100 mg PO DAILY Qty: 90 3RF valacyclovir [Valtrex] 500 mg tablet 500 mg PO DAILY Qty: 90 3RF Rx Instructions: Take 500 mg BID for 3 days, then take daily fluticasone propionate 50 mcg/actuation spray,suspension 2 spray NS daily prn Qty: 16 5RF cyanocobalamin (vitamin B-12) [Vitamin B-12] 500 mcg tablet 1,000 mcg PO DAILY Qty: 180 3RF ferrous sulfate 325 mg (65 mg iron) tablet 325 mg PO BID Qty: 180 3RF Rx Instructions: do not take within 2 hours of antibiotics multivitamin [Multiple Vitamins] Tablet 1 tab PO DAILY Qty: 90 3RF quetiapine 25 mg tablet See Rx Instructions PO BID Qty: 60 5RF Rx Instructions: 0.5 tab PO twice a day; spironolactone [Aldactone] 50 mg tablet 50 mg PO BID Qty: 180 3RF venlafaxine 75 mg capsule,extended release 24hr 75 mg PO DAILY Qty: 90 3RF Hold Instructions: Home Medication placed on hold at Doctor's office aspirin 81 mg tablet,delayed release (DR/EC) 81 mg PO DAILY Qty: 90 3RF lorazepam 1 mg tablet 1 mg PO QHS PRN (Reason: sleep) Qty: 20 0RF ondansetron 4 mg tablet,disintegrating 4 mg PO Q8H PRN (Reason: nausea and vomiting) Qty: 20 2RF carboxymethylcellulose sodium [Refresh Plus] 0.5 % Dropperette 1 drp OU Q4H WHILE AWAKE Qty: 30 0RF Label Comments: 08/15/19 pt states that she took her blister pack of meds but that she vomited them up pantoprazole 40 mg Tablet,Delayed Release (Dr/Ec) 40 mg PO BID@729,1999 Qty: 60 0RF ondansetron 4 mg tablet,disintegrating 4 mg PO TID PRN (Reason: nausea and vomiting) Qty: 6 0RF Discharge Instructions Instructions: Hypokalemia (ED) Additional Instructions: Your potassium and magnesium were low today and you were given IV potassium and magnesium supplementation in the emergency department. Drink plenty of fluids and get plenty of rest. Take the Zofran that you have at home as needed and directed for nausea and vomiting. Follow-up with your primary care doctor in 1 week. Return to the emergency department with any worsening or new concerning symptoms. Discharge Data Discharge Physician: Megan Foster Medical Decision Making <Moose Lafleur MD - Last Filed: 08/26/22 19:00> 77-year-old female presents complaining of nausea, poor p.o. intake, generalized weakness over days time. She notes that she has not been drinking alcohol. She is not had a fever. Patient called EMS due to her persistent weakness. She arrives to the ER alert, interactive, with normal pulse and blood pressure. Her exam is notable for dry mucous membranes. She is at risk for dehydration, electrolyte abnormality. Must exclude a cardiac event or pancreatitis. Patient was placed on a director of cardiac rehabilitation, IV access established, given fluids, antiemetic. Laboratories will note hypomagnesemia and hypokalemia. The patient received 2 g of magnesium, 20 mill equivalents of IV potassium and the labs are rechecked. Magnesium is improved, potassium remains low at 3.1. Patient will receive an additional 20 tanika equivalents of potassium and repeat of her blood level. As it is change of shift, patient will be signed out to Dr. Foster. Please see her note regarding final disposition. <Megan Foster, DO - Last Filed: 08/26/22 22:14> Dr. Lafleur 77-year-old female presents complaining of nausea, poor p.o. intake, generalized weakness over days time. She notes that she has not been drinking alcohol. She is not had a fever. Patient called EMS due to her persistent weakness. She arrives to the ER alert, interactive, with normal pulse and blood pressure. Her exam is notable for dry mucous membranes. She is at risk for dehydration, electrolyte abnormality. Must exclude a cardiac event or pancreatitis. Patient was placed on a director of cardiac rehabilitation, IV access established, given fluids, antiemetic. Laboratories will note hypomagnesemia and hypokalemia. The patient received 2 g of magnesium, 20 mill equivalents of IV potassium and the labs are rechecked. Magnesium is improved, potassium remains low at 3.1. Patient will receive an additional 20 tanika equivalents of potassium and repeat of her blood level. As it is change of shift, patient will be signed out to Dr. Foster. Please see her note regarding final disposition. Dr. Foster 1999 --please see Dr. Lafleur's note for initial presentation, exam and plan. Case endorsed to follow-up on repeat potassium after supplementation with likely plan for discharge to home. 2200 --repeat potassium now within normal limits at 3.7. Patient was able to take p.o. with no further vomiting and feels comfortable going home. Advised to follow up with the primary care doctor for re-evaluation. Usual and customary return precautions given prior to discharge. Medical Records Medical records reviewed: Yes I reviewed the patient's medical records. Lab Data Lab results reviewed: Yes I reviewed the patient's lab results. Labs: Laboratory Tests Range/Units 08/26/22 08/26/22 08/26/22 15:25 15:25 15:25 WBC (4.4-10.8) 10^3/uL 4.41 RBC (3.93-5.22) 10^6/uL 3.08 L Hgb (11.2-15.7) g/dL 10.3 L Hct (36.0-46.0) % 29.7 L MCV (80-95) fL 96 H MCH (27.0-33.0) pg 33.4 H MCHC (32.0-36.0) % 34.7 RDW (11.7-14.6) % 14.4 Plt Count (130-400) 10^3/uL 121 L MPV (8.0-11.0) fL 9.2 Immature Gran % 0.5 Neutrophils % 73.0 Lymphocytes % 18.8 Monocytes % 7.5 Eosinophils % 0.0 Basophils % 0.2 Nucleated RBC % (0.0-0.3) % 0.0 Absolute Neutrophils (1.2-6.7) 10^3/uL 3.22 Absolute Lymphocytes (1.2-3.4) 10^3/uL 0.83 L Absolute Monocytes (0.1-0.8) 10^3/uL 0.33 Absolute Eosinophils (0.0-0.7) 10^3/uL 0.00 Absolute Basophils (0.0-0.2) 10^3/uL 0.01 Sodium (136-145) mmol/L 134 L Cancelled Potassium (3.5-5.1) mmol/L 2.9 L Cancelled Chloride (98-107) mmol/L 97 L Cancelled Carbon Dioxide (21.0-32.0) mmol/L 26.1 Cancelled Anion Gap (3-11) mmol/L 10.9 Cancelled BUN (7-18) mg/dL 12 Cancelled Creatinine (0.55-1.02) mg/dL 1.3 H Cancelled Est GFR (CKD-EPI 2020) (mL/min/1.73m2) 42.62 Cancelled Glucose (74-106) mg/dL 119 H Cancelled Calcium (8.5-10.1) mg/dL 8.6 Cancelled Magnesium (1.8-2.4) mg/dL 1.1 L Total Bilirubin (0.2-1.0) mg/dL 2.2 H Cancelled AST (15-37) U/L 48 H Cancelled ALT (14-59) U/L 30 Cancelled Alkaline Phosphatase (46-116) U/L 202 H Cancelled Troponin I (<or=60) ng/L < 50 Total Protein (6.4-8.2) g/dL 6.1 L Cancelled Albumin (3.4-5.0) g/dL 3.1 L Cancelled Lipase (73-393) U/L 39 Ethyl Alcohol (<10) mg/dL 9.4 Range/Units 08/26/22 08/26/22 18:42 21:33 WBC (4.4-10.8) 10^3/uL RBC (3.93-5.22) 10^6/uL Hgb (11.2-15.7) g/dL Hct (36.0-46.0) % MCV (80-95) fL MCH (27.0-33.0) pg MCHC (32.0-36.0) % RDW (11.7-14.6) % Plt Count (130-400) 10^3/uL MPV (8.0-11.0) fL Immature Gran % Neutrophils % Lymphocytes % Monocytes % Eosinophils % Basophils % Nucleated RBC % (0.0-0.3) % Absolute Neutrophils (1.2-6.7) 10^3/uL Absolute Lymphocytes (1.2-3.4) 10^3/uL Absolute Monocytes (0.1-0.8) 10^3/uL Absolute Eosinophils (0.0-0.7) 10^3/uL Absolute Basophils (0.0-0.2) 10^3/uL Sodium (136-145) mmol/L 134 L Potassium (3.5-5.1) mmol/L 3.1 L 3.7 Chloride (98-107) mmol/L 100 Carbon Dioxide (21.0-32.0) mmol/L 25.4 Anion Gap (3-11) mmol/L 8.6 BUN (7-18) mg/dL 11 Creatinine (0.55-1.02) mg/dL 1.1 H Est GFR (CKD-EPI 2020) (mL/min/1.73m2) 52.08 Glucose (74-106) mg/dL 118 H Calcium (8.5-10.1) mg/dL 7.8 L Magnesium (1.8-2.4) mg/dL 1.8 Total Bilirubin (0.2-1.0) mg/dL AST (15-37) U/L ALT (14-59) U/L Alkaline Phosphatase (46-116) U/L Troponin I (<or=60) ng/L Total Protein (6.4-8.2) g/dL Albumin (3.4-5.0) g/dL Lipase (73-393) U/L Ethyl Alcohol (<10) mg/dL HPI <Moose G MD Ciarra - Last Filed: 08/26/22 19:00> General Mode of arrival: EMS. Date/Time Provider Initiated Documentation: 08/26/22 15:20. Limitations to Documentation: no limitations. Information obtained by: patient and EMS. History of Present Illness 77 year old F presents to the emergency department with the chief complaint of Poor p.o. intake, nausea, general weakness and malaise, described as moderate and similar to prior episodes, Quality is described as dull, and is localized to the abdomen. Patient reports no radiation. Patient started experiencing this day(s) and it has been intermittent. No relieving factors improve symptom(s), Eating worsens symptoms . Patient notes loss of appetite, malaise, nausea/vomiting and weakness; denies cough and fever/chills. Patient did receive the following treatments prior to arrival, none Related Data Home Medications Medication Instructions Recorded Confirmed carboxymethylcellulose sodium 0.5 1 drp OU Q4H WHILE AWAKE #30 ea 06/20/19 08/23/22 % eye drops in a dropperette (Refresh Plus) lifitegrast 5 % eye drops in a 1 drp ophthalmic (eye) BID 08/05/20 08/23/22 dropperette (Xiidra) ipratropium 0.5 mg-albuterol 3 mg 3 ml inhalation Q6H PRN 12/25/21 08/23/22 (2.5 mg base)/3 mL nebulization soln albuterol sulfate 90 mcg/actuation 2 puff inhalation QID PRN 02/08/22 08/23/22 aerosol inhaler (Ventolin HFA) shortness of breath or wheezing #8.5 grams amlodipine 10 mg tablet 10 mg PO DAILY #90 tabs 02/08/22 08/23/22 buspirone 5 mg tablet 5 mg PO BID #60 tabs 02/08/22 08/23/22 folic acid 1 mg tablet 1 mg PO DAILY #90 tabs 02/08/22 08/23/22 melatonin 3 mg capsule 6 mg PO HS #180 caps 02/08/22 08/23/22 metoprolol tartrate 50 mg tablet 50 mg PO DAILY #90 tabs 02/08/22 08/23/22 mirtazapine 7.5 mg tablet 7.5 mg PO QHS #90 tabs 02/08/22 08/23/22 sucralfate 1 gram tablet 1 g PO BID #60 tabs 02/08/22 08/23/22 thiamine HCl (vitamin B1) 100 mg 100 mg PO DAILY #90 tabs 02/08/22 08/23/22 tablet valacyclovir 500 mg tablet 500 mg PO DAILY #90 tabs 02/08/22 08/23/22 (Valtrex) fluticasone propionate 50 2 spray NS daily prn #16 grams 03/06/22 08/23/22 mcg/actuation nasal spray,suspension budesonide 0.5 mg/2 mL suspension 0.5 mg (2 mL) inhalation DAILY #60 05/06/22 08/23/22 for nebulization (Pulmicort) mL pantoprazole 40 mg tablet,delayed 40 mg PO BID@0730,2000 #60 tabs 05/21/22 08/23/22 release cyanocobalamin (vitamin B-12) 500 1,000 mcg PO DAILY #180 tabs 07/10/22 08/23/22 mcg tablet (Vitamin B-12) ferrous sulfate 325 mg (65 mg 325 mg PO BID #180 tabs 07/10/22 08/23/22 iron) tablet multivitamin (Multiple Vitamins 1 tab PO DAILY #90 tabs 07/10/22 08/23/22 tablet) quetiapine 25 mg tablet See Rx Instructions PO BID #60 tabs 07/10/22 08/23/22 spironolactone 50 mg tablet 50 mg PO BID #180 tabs 07/10/22 08/23/22 (Aldactone) venlafaxine 75 mg capsule,extended 75 mg PO DAILY #90 caps 07/10/22 08/23/22 release 24 hr mirabegron 50 mg tablet,extended 50 mg PO DAILY #30 tabs 07/20/22 08/23/22 release 24 hr (Myrbetriq) aspirin 81 mg tablet,delayed 81 mg PO DAILY #90 tabs 08/05/22 08/23/22 release lorazepam 1 mg tablet 1 mg PO QHS PRN sleep #20 tabs 08/10/22 08/23/22 furosemide 20 mg tablet See Rx Instructions PO BID #180 08/11/22 08/23/22 tabs ondansetron 4 mg disintegrating 4 mg PO Q8H PRN nausea and 08/17/22 08/23/22 tablet vomiting #20 tabs ondansetron 4 mg disintegrating 4 mg PO TID PRN nausea and 08/24/22 tablet vomiting #6 tabs Previous Rx's Medication Instructions Recorded carboxymethylcellulose sodium 0.5 1 drp OU Q4H WHILE AWAKE #30 ea 06/20/ % eye drops in a dropperette (Refresh Plus) albuterol sulfate 90 mcg/actuation 2 puff inhalation QID PRN 02/08/22 aerosol inhaler (Ventolin HFA) shortness of breath or wheezing #8.5 grams amlodipine 10 mg tablet 10 mg PO DAILY #90 tabs 02/08/22 buspirone 5 mg tablet 5 mg PO BID #60 tabs 02/08/22 folic acid 1 mg tablet 1 mg PO DAILY #90 tabs 02/08/22 melatonin 3 mg capsule 6 mg PO HS #180 caps 02/08/22 metoprolol tartrate 50 mg tablet 50 mg PO DAILY #90 tabs 02/08/22 mirtazapine 7.5 mg tablet 7.5 mg PO QHS #90 tabs 02/08/22 sucralfate 1 gram tablet 1 g PO BID #60 tabs 02/08/22 thiamine HCl (vitamin B1) 100 mg 100 mg PO DAILY #90 tabs 02/08/22 tablet valacyclovir 500 mg tablet 500 mg PO DAILY #90 tabs 02/08/22 (Valtrex) fluticasone propionate 50 2 spray NS daily prn #16 grams 03/06/22 mcg/actuation nasal spray,suspension budesonide 0.5 mg/2 mL suspension 0.5 mg (2 mL) inhalation DAILY #60 05/06/22 for nebulization (Pulmicort) mL pantoprazole 40 mg tablet,delayed 40 mg PO BID@07 #60 tabs 05/21/22 release cyanocobalamin (vitamin B-12) 500 1,000 mcg PO DAILY #180 tabs 07/10/22 mcg tablet (Vitamin B-12) ferrous sulfate 325 mg (65 mg 325 mg PO BID #180 tabs 07/10/22 iron) tablet multivitamin (Multiple Vitamins 1 tab PO DAILY #90 tabs 07/10/22 tablet) quetiapine 25 mg tablet See Rx Instructions PO BID #60 tabs 07/10/22 spironolactone 50 mg tablet 50 mg PO BID #180 tabs 07/10/22 (Aldactone) venlafaxine 75 mg capsule,extended 75 mg PO DAILY #90 caps 07/10/22 release 24 hr mirabegron 50 mg tablet,extended 50 mg PO DAILY #30 tabs 07/20/22 release 24 hr (Myrbetriq) aspirin 81 mg tablet,delayed 81 mg PO DAILY #90 tabs 08/05/22 release lorazepam 1 mg tablet 1 mg PO QHS PRN sleep #20 tabs 08/10/22 furosemide 20 mg tablet See Rx Instructions PO BID #180 08/11/22 tabs ondansetron 4 mg disintegrating 4 mg PO Q8H PRN nausea and 08/17/22 tablet vomiting #20 tabs ondansetron 4 mg disintegrating 4 mg PO TID PRN nausea and 08/24/22 tablet vomiting #6 tabs Allergies Allergy/AdvReac Type Severity Reaction Status Date / Time Penicillins Allergy Mild Rash Verified 08/23/22 14:36 ramipril Allergy Unknown ITCHING Verified 08/23/22 14:36 meperidine [From Demerol] AdvReac Severe Nausea Verified 08/23/22 14:36 bupropion AdvReac Mild GI upset Verified 08/23/22 14:36 AMBER Inhibitors AdvReac Unknown COUGH Verified 08/23/22 14:36 alendronate sodium AdvReac Unknown GI Distress Verified 08/23/22 14:36 clarithromycin AdvReac Unknown intolerant Verified 08/23/22 14:36 paroxetine AdvReac Unknown Diarrhea Verified 08/23/22 14:36 General Stated Complaint: Nausea/Vomit/Diar JORDAN: 3 Review of Systems <Moose Lafleur MD - Last Filed: 08/26/22 19:00> Narrative: 6 systems reviewed and otherwise negative [facility] <Moose Lafleur MD - Last Filed: 08/26/22 19:00> All Active Problems (Updated 08/26/22 @ 22:10 by Megan Foster DO) Abdominal ascites (Acute) Noncompliance with medication regimen (Acute) Ascites due to chronic alcoholic hepatitis (Acute) Alcohol intoxication (Acute) Nausea and vomiting (Acute) Hypokalemia (Acute) Nausea and vomiting (Acute) Thrombocytopenia (Chronic) Elevated bilirubin (Acute) Dehydration (Acute) Mixed stress and urge urinary incontinence (Acute) Thyroid nodule (Acute) Anxiety (Chronic) Adverse effect of metronidazole (Acute) Medication monitoring encounter (Acute) Advance care planning (Acute) Cirrhosis of liver with ascites (Acute) Animal bite of right hand with infection (Acute) Umbilical hernia (Acute) 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 ascites (Acute) Hyperbilirubinemia (Acute) Shortness of breath (Acute) Elevated blood pressure reading without diagnosis of hypertension (Acute) Left arm pain (Acute) Ambulatory dysfunction (Acute) Incontinence (Acute) Urge incontinence (Acute) Anorexia (Acute) Headache (Acute) Onychomycosis (Acute) Depression (Chronic) Chest pain (Acute) Foot pain, right (Acute) Tendinitis of left rotator cuff (Acute) Macrocytosis (Acute 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 Leukopenia (Acute) Headache (Acute) Epigastric abdominal pain (Acute) Calcific tendinitis of left shoulder (Acute) Pulmonary mass (Acute) spiculated mass Pneumonia (Acute) Depression with suicidal ideation (Acute) Alcohol abuse (Chronic) Diarrhea (Acute) Epigastric pain (Acute) Dehydration (Acute) Hypokalemia (Acute) Discharge planning issues (Acute) Palliative care patient (Acute) Difficult intravenous access (Acute) Multiple IV attempts, usually requires ultrasound placement. PTSD (post-traumatic stress disorder) (Acute) Anemia (Chronic) Depression (Chronic) Foot pain, right (Acute) T12 compression fracture (Acute) Presacral mass (Chronic) Deviated nasal septum (Acute) Frequent falls (Chronic) Head injury (Acute) Ambulatory dysfunction (Chronic) Shoulder pain, right (Chronic) Suicidal ideation (Acute) Dry eye (Acute) Pruritus (Acute) Dystrophic nail (Acute) AMBER (acute kidney injury) (Acute) Iron deficiency anemia (Chronic) Alcohol abuse (Chronic) Fall (Acute) Atelectasis of left lung (Chronic) Advance directive on file (Acute) Nodule of upper lobe of right lung (Acute ~09/13/18) 09/13/18 [facility]; 12mm SPICULATED -kb Cataract (Chronic 11/07/15) Hypertension (Chronic) high today; she will check readings at home Hyperlipidemia (Chronic) Back pain, chronic (Chronic) Depression (Chronic) Osteopenia (Chronic) Medical History Adjustment disorder with depressed mood Alcoholic ketosis Anemia Cervical radicular pain neck pain and [facility] 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) pls refrain from alcohol Chronic alcoholism she will not stop drinking unless she checks with me, so that we can help her avert withdrawal I do not think she is capable on her own--she would need placement to achieve required goal of 3 months of sobriety Chronic diarrhea Closed right humeral fracture Corneal ulcer, right (~08/23/18) 08/23/18; [facility] Fracture of humerus, left, closed Genital herpes simplex recurrent gential; suppressive Valtrex GERD (gastroesophageal reflux disease) GI bleed (12/20/16) Hypertension Hypokalemia Hypomagnesemia Incidental lung nodule, greater than or equal to 8mm 1cm, spiculated, stable for many years, recommend f/u in 6 mo Multiple rib fractures 03/11/19 [facility] Non-cardiac chest pain (09/21/16) [facility] 09/21/16 NEGATIVE MP Osteoarthritis Palliative care patient (03/21/17) Pancreatitis, alcoholic, acute Peripheral edema Photophobia of right eye Pleural effusion on left 03/11/19 [facility] Presacral mass (~09/15/18) 09/15/18 [facility] Sciatica right, epidural injuections [facility] Tubular adenoma of colon (01/28/17) Urinary incontinence 01/24/13 urethral suspension and sling at [facility] (bladder suspension 1991) 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 Bladder repair. Repair bladder injury, simple Family History Mother No problems noted. Father , DROWNED at age 50. No problems noted. Sister Personal history of malignant neoplasm MELANOMA Sister No problems noted. Grandfather Personal history of malignant neoplasm STOMACH Grandfather Personal history of malignant neoplasm PROSTATE Grandmother Heart disease [place] Acute ill-defined cerebrovascular disease Grandmother Personal history of malignant neoplasm UTERINE Aunt , [place] Heart disease [place] Aunt , [place] Heart disease Brother No problems noted. Social History Smoking/Tobacco Use Status: Former Tobacco Use Quit Date: 08/05/20 Smoking risk assessment performed?: Yes Alcohol Intake: current Alcohol Intake frequency: 3 or more drinks per day Alcohol type: hard liquor Drug use: Never Substance use type: does not use Details: Last alcoholic drink Mike zhong, 2 days ago Current gender identity: female Do you feel safe at home: Yes Do you feel safe in your relationship?: Yes Exam <Moose Lafleur MD - Last Filed: 08/26/22 19:00> Narrative Exam Narrative: GEN: awake, alert, oriented 3. Pleasant, well groomed, interactive. HEAD: Normocephalic, atraumatic ENT: Mucous membranes dry, oropharynx unremarkable, External ear exam unremarkable EYES: PERRL, EOMI NECK: Full ROM, no CANDY, no menigismus CHEST/RESP: Nontender, clear to auscultation bilateral, no wheeze/rhonchi/rales CARDIOVASCULAR: RRR, no murmur, rub shirin. 2+ Rad pulse bilateral ABDOMEN: Soft, nontender, no mass. +Bowel sounds EXT: Full ROM, no edema, no rash Neuro: Grossly normal neurologic exam, conversant, interactive. Psych: Speech fluent, thoughts congruent, affect normal Course <Moose Lafleur MD - Last Filed: 08/26/22 19:00> Vital Signs Vital signs: Vital Signs Temperature 37.0 C 08/26/22 14:41 Pulse 89 08/26/22 14:41 Respiratory Rate 18 08/26/22 14:41 Blood Pressure 146/84 H 08/26/22 14:41 Pulse Oximetry 98 08/26/22 14:41 Temperature 37.0 C 08/26/22 14:41 Pulse 89 08/26/22 14:41 Respiratory Rate 18 08/26/22 14:41 Respiratory Effort 08/26/22 14:37 Blood Pressure 146/84 H 08/26/22 14:41 Pulse Oximetry 98 08/26/22 14:41 Oxygen Delivery Method Room Air 08/26/22 14:41 Oxygen Flow Rate 0 08/26/22 14:41 Pain Level 7 08/26/22 14:33 Sign Out <Moose Lafleur MD - Last Filed: 08/26/22 19:00> Sign Out Data: Sign Out Comment: Followup repeat K after supplementation Last updated by Moose Lafleur MD at 08/26/22 19:43 PAWSS <Moose Lafleur MD - Last Filed: 08/26/22 19:00> Have you Been Recently Intoxicated or Drunk Within the Last 30 days?: Yes Have you Ever Experienced Previous Episodes of Alcohol Withdrawal?: No Have you ever Experienced Withdrawal Seizures?: No Have you ever Experienced Delirium Tremens(DT)s?: No Have you ever undergone Alcohol Rehabilitation Treatment (i.e, inpt ot outpatient treatment programs)?: No Have you ever Experienced Blackouts?: No Have you ever Combined Alcohol with other Downers within the last 90 days?: No Have you ever Combined Alcohol with any other Substance of Abuse during the last 90 days?: No Positive Blood Alcohol level on Presentation? [PCS.BAL]: No Evidence of Increased Autonomic Activity (i.e. HR>120, tremor, sweating, agitation, nausea)?: No Result: 1 <Megan Foster DO - Last Filed: 08/26/22 22:14> Result: 1
[2022-08-26 15:31] LABS: Abs Immature Grans 0.02 10^3/uL (0.0-0.06); Absolute Basophil Count 0.01 10^3/uL (0.0-0.2); Absolute Lymphocyte Count 0.83 10^3/uL (1.2-3.4); Absolute Monocyte Count 0.33 10^3/uL (0.1-0.8); Absolute Neutrophil Count 3.22 10^3/uL (1.2-6.7); Basophils % 0.2; HCT 29.7 % (36.0-46.0); HGB 10.3 g/dL (11.2-15.7); Immature Grans % 0.5; Lymphocytes % 18.8; MCH 33.4 pg (27.0-33.0); MCHC 34.7 % (32.0-36.0); MCV 96 fL (80-95); MPV 9.2 fL (8.0-11.0); Monocytes % 7.5; Platelet Count 121 10^3/uL (130-400); RBC 3.08 10^6/uL (3.93-5.22); RDW 14.4 % (11.7-14.6); RDW-SD 50.4 fL; WBC 4.41 10^3/uL (4.4-10.8)
[2022-08-26] MEDS: LORazepam 2 MG/ML VIAL 0.5 MG IVP (15:40)
[2022-08-26] MEDS: Normal Saline 1,000 ML 1000 ML IV (15:40)
[2022-08-26] MEDS: Ondansetron 4 MG/2 ML VIAL IVP ×2 (15:41→17:38)
[2022-08-26 16:00] LABS: ALT 30 U/L (14-59); AST 48 U/L (15-37); Albumin 3.1 g/dL (3.4-5.0); Alkaline Phosphatase 202 U/L (46-116); Anion Gap 10.9 mmol/L (3-11); BUN 12 mg/dL (7-18); Bilirubin, Total 2.2 mg/dL (0.2-1.0); CO2 26.1 mmol/L (21.0-32.0); CREATININE 1.3 mg/dL (0.55-1.02); Calcium 8.6 mg/dL (8.5-10.1); Chloride 97 mmol/L (98-107); ETHANOL BLOOD 9.4 mg/dL (<10); Estimated GFR 42.62 (mL/min/1.73m2); Glucose 119 mg/dL (74-106); Lipase 39 U/L (73-393); Magnesium 1.1 mg/dL (1.8-2.4); Sodium 134 mmol/L (136-145); Total Protein 6.1 g/dL (6.4-8.2); Troponin I < 50 ng/L (<or=60)
[2022-08-26 16:02] LABS: Potassium 2.9 mmol/L (3.5-5.1)
[2022-08-26] MEDS: POTASSIUM CHLORIDE 20 MEQ/100 ML BAG 50 MEQ IVPB ×2 (16:26→19:33)
[2022-08-26] MEDS: MAGNESIUM SULFATE 2 GM/50 ML BAG IVPB (16:26)
[2022-08-26 18:55] LABS: Magnesium 1.8 mg/dL (1.8-2.4); Potassium 3.1 mmol/L (3.5-5.1)
[2022-08-26 21:59] LABS: Anion Gap 8.6 mmol/L (3-11); BUN 11 mg/dL (7-18); CO2 25.4 mmol/L (21.0-32.0); CREATININE 1.1 mg/dL (0.55-1.02); Calcium 7.8 mg/dL (8.5-10.1); Chloride 100 mmol/L (98-107); Estimated GFR 52.08 (mL/min/1.73m2); Glucose 118 mg/dL (74-106); Potassium 3.7 mmol/L (3.5-5.1); Sodium 134 mmol/L (136-145)
[2022-08-26] MEDS: Ondansetron O.D.T. 4 MG TABEF, 3 TABS/BTL PO (22:49)
== END 2022-08-26 22:54 | disposition home or self-care (01) ==
PROVIDERS: Emergency Medicine; Emergency Provider Physician Assistant; PCP Family Medicine
DX: E87.6 Hypokalemia (principal); R11.2 Nausea with vomiting, unspecified; R53.1 Weakness; E83.42 Hypomagnesemia; F10.20 Alcohol dependence, uncomplicated
CPT/HCPCS: 36415; 80048; 80053; 83690; 99284; 80320; 83735; 84132; 84484; 85025; J2060; J2405; J3480

== ENCOUNTER 2022-09-03 15:03 | Emergency (ER) | payer MEDICARE, SELFPAY ==
--- NOTE | 2022-09-03 15:00 | RT.EKG_ITS ---
APPROVED REPORT Exam: Resting ECG Reason for Exam: abdominal pain Patient Location: E HR:94 bpm ECG Measurements Heart Rate 94 AXIS KS 190 P 42 QRSd 86 QRS -26 QT 418 T -9 QTc 523 Conclusion Sinus rhythm...normal P axis, V-rate 60- 99 Inferior infarct, old...Q >35mS, II III aVF Prolonged QT interval...QTc >500mS sinus rhythm, left axis, non ischemic
[2022-09-03 15:20] VITALS: BP 151/84; PULSE 96; RESP 22; TEMP 37; O2SAT 98
--- NOTE | 2022-09-03 15:50 | ED.GENADUL_ITS ---
Discharge Plan Disposition Patient Disposition: Home Condition: Improving Discharge Details Clinical Impression: Nausea Primary Care Provider: Lavelle Galindo ED Provider: Aydin Mauricio Home Meds and New Rx's Prescriptions: New ondansetron 4 mg tablet,disintegrating 4 mg PO Q8H PRN (Reason: nausea and vomiting) Qty: 10 0RF No Action Xiidra 5 % dropperette 1 drp ophthalmic (eye) BID Rx Instructions: administer approximately 12 hours apart budesonide [Pulmicort] 0.5 mg/2 mL suspension for nebulization 0.5 mg inhalation DAILY Qty: 60 5RF furosemide 20 mg tablet See Rx Instructions PO BID Qty: 180 3RF Rx Instructions: orally twice a day; 3 tabs (60mg) in AM and 2 tabs(40mg in afternoon; ipratropium-albuterol 0.5 mg-3 mg(2.5 mg base)/3 mL solution for nebulization 3 ml inhalation Q6H PRN Myrbetriq 50 mg tablet extended release 24 hr 50 mg PO DAILY Qty: 30 12RF albuterol sulfate [Ventolin HFA] 90 mcg/actuation HFA aerosol inhaler 2 puff inhalation QID PRN (Reason: shortness of breath or wheezing) Qty: 8.5 1RF amlodipine 10 mg tablet 10 mg PO DAILY Qty: 90 3RF buspirone 5 mg tablet 5 mg PO BID Qty: 60 5RF folic acid 1 mg tablet 1 mg PO DAILY Qty: 90 3RF melatonin 3 mg capsule 6 mg PO HS Qty: 180 3RF metoprolol tartrate 50 mg tablet 50 mg PO DAILY Qty: 90 3RF mirtazapine 7.5 mg tablet 7.5 mg PO QHS Qty: 90 4RF sucralfate 1 gram tablet 1 g PO BID Qty: 60 11RF thiamine HCl (vitamin B1) 100 mg tablet 100 mg PO DAILY Qty: 90 3RF valacyclovir [Valtrex] 500 mg tablet 500 mg PO DAILY Qty: 90 3RF Rx Instructions: Take 500 mg BID for 3 days, then take daily fluticasone propionate 50 mcg/actuation spray,suspension 2 spray NS daily prn Qty: 16 5RF cyanocobalamin (vitamin B-12) [Vitamin B-12] 500 mcg tablet 1,000 mcg PO DAILY Qty: 180 3RF ferrous sulfate 325 mg (65 mg iron) tablet 325 mg PO BID Qty: 180 3RF Rx Instructions: do not take within 2 hours of antibiotics multivitamin [Multiple Vitamins] Tablet 1 tab PO DAILY Qty: 90 3RF quetiapine 25 mg tablet See Rx Instructions PO BID Qty: 60 5RF Rx Instructions: 0.5 tab PO twice a day; spironolactone [Aldactone] 50 mg tablet 50 mg PO BID Qty: 180 3RF venlafaxine 75 mg capsule,extended release 24hr 75 mg PO DAILY Qty: 90 3RF Hold Instructions: Home Medication placed on hold at Doctor's office aspirin 81 mg tablet,delayed release (DR/EC) 81 mg PO DAILY Qty: 90 3RF lorazepam 1 mg tablet 1 mg PO QHS PRN (Reason: sleep) Qty: 20 0RF ondansetron 4 mg tablet,disintegrating 4 mg PO Q8H PRN (Reason: nausea and vomiting) Qty: 20 2RF carboxymethylcellulose sodium [Refresh Plus] 0.5 % Dropperette 1 drp OU Q4H WHILE AWAKE Qty: 30 0RF Label Comments: 08/15/19 pt states that she took her blister pack of meds but that she vomited them up pantoprazole 40 mg Tablet,Delayed Release (Dr/Ec) 40 mg PO BID@729,1999 Qty: 60 0RF ondansetron 4 mg tablet,disintegrating 4 mg PO TID PRN (Reason: nausea and vomiting) Qty: 6 0RF Discharge Instructions Instructions: Acute Nausea and Vomiting (ED) Additional Instructions: Please follow-up with your primary care physician. Please medications as prescribed. Medical Decision Making 77-year-old female history of alcoholism, cirrhosis, ascites,, chronic recurrent nausea and vomiting presents with acute on chronic nausea. No active vomiting. Hemodynamically stable afebrile nontoxic. Slightly distended abdomen with fluid wave consistent with ascites, although nontympanic nonperitoneal. Patient is alert oriented, clinically sober. No tongue fasciculations or tremors. High clinical suspicion for acute on chronic gastritis in the setting of alcoholism lower suspicion for pancreatitis, no evidence of alcohol withdrawal at this time, no evidence of bowel obstruction. Trial of fluids antiemetics GI cocktail obtain basic labs and lipase. Disposition likely home with close follow-up. 17: 08 resting comfortably no acute distress no vomiting. Hemodynamically stable labs largely unremarkable. HPI General Date/Time Provider Initiated Documentation: 09/03/22 15:06 . HPI Narrative: 77-year-old female history of abdominal ascites alcoholism, presents with acute on chronic nausea over the past several days. Endorses last drink was 4 days ago. Has had history of paracentesis in the past although denies recent paracentesis. No fevers or chills. No lower GI symptoms. Related Data Home Medications Medication Instructions Recorded Confirmed carboxymethylcellulose sodium 0.5 1 drp OU Q4H WHILE AWAKE #30 ea 06/20/19 08/23/22 % eye drops in a dropperette (Refresh Plus) lifitegrast 5 % eye drops in a 1 drp ophthalmic (eye) BID 08/05/20 08/23/22 dropperette (Xiidra) ipratropium 0.5 mg-albuterol 3 mg 3 ml inhalation Q6H PRN 12/25/21 08/23/22 (2.5 mg base)/3 mL nebulization soln albuterol sulfate 90 mcg/actuation 2 puff inhalation QID PRN 02/08/22 08/23/22 aerosol inhaler (Ventolin HFA) shortness of breath or wheezing #8.5 grams amlodipine 10 mg tablet 10 mg PO DAILY #90 tabs 02/08/22 08/23/22 buspirone 5 mg tablet 5 mg PO BID #60 tabs 02/08/22 08/23/22 folic acid 1 mg tablet 1 mg PO DAILY #90 tabs 02/08/22 08/23/22 melatonin 3 mg capsule 6 mg PO HS #180 caps 02/08/22 08/23/22 metoprolol tartrate 50 mg tablet 50 mg PO DAILY #90 tabs 02/08/22 08/23/22 mirtazapine 7.5 mg tablet 7.5 mg PO QHS #90 tabs 02/08/22 08/23/22 sucralfate 1 gram tablet 1 g PO BID #60 tabs 02/08/22 08/23/22 thiamine HCl (vitamin B1) 100 mg 100 mg PO DAILY #90 tabs 02/08/22 08/23/22 tablet valacyclovir 500 mg tablet 500 mg PO DAILY #90 tabs 02/08/22 08/23/22 (Valtrex) fluticasone propionate 50 2 spray NS daily prn #16 grams 03/06/22 08/23/22 mcg/actuation nasal spray,suspension budesonide 0.5 mg/2 mL suspension 0.5 mg (2 mL) inhalation DAILY #60 05/06/22 08/23/22 for nebulization (Pulmicort) mL pantoprazole 40 mg tablet,delayed 40 mg PO BID@0730,1999 #60 tabs 05/21/22 08/23/22 release cyanocobalamin (vitamin B-12) 500 1,000 mcg PO DAILY #180 tabs 07/10/22 08/23/22 mcg tablet (Vitamin B-12) ferrous sulfate 325 mg (65 mg 325 mg PO BID #180 tabs 07/10/22 08/23/22 iron) tablet multivitamin (Multiple Vitamins 1 tab PO DAILY #90 tabs 07/10/22 08/23/22 tablet) quetiapine 25 mg tablet See Rx Instructions PO BID #60 tabs 07/10/22 08/23/22 spironolactone 50 mg tablet 50 mg PO BID #180 tabs 07/10/22 08/23/22 (Aldactone) venlafaxine 75 mg capsule,extended 75 mg PO DAILY #90 caps 07/10/22 08/23/22 release 24 hr mirabegron 50 mg tablet,extended 50 mg PO DAILY #30 tabs 07/20/22 08/23/22 release 24 hr (Myrbetriq) aspirin 81 mg tablet,delayed 81 mg PO DAILY #90 tabs 08/05/22 08/23/22 release lorazepam 1 mg tablet 1 mg PO QHS PRN sleep #20 tabs 08/10/22 08/23/22 furosemide 20 mg tablet See Rx Instructions PO BID #180 08/11/22 08/23/22 tabs ondansetron 4 mg disintegrating 4 mg PO Q8H PRN nausea and 08/17/22 08/23/22 tablet vomiting #20 tabs ondansetron 4 mg disintegrating 4 mg PO TID PRN nausea and 08/24/22 tablet vomiting #6 tabs ondansetron 4 mg disintegrating 4 mg PO Q8H PRN nausea and 09/03/22 tablet vomiting #10 tabs Previous Rx's Medication Instructions Recorded carboxymethylcellulose sodium 0.5 1 drp OU Q4H WHILE AWAKE #30 ea 06/20/ % eye drops in a dropperette (Refresh Plus) albuterol sulfate 90 mcg/actuation 2 puff inhalation QID PRN 02/08/22 aerosol inhaler (Ventolin HFA) shortness of breath or wheezing #8.5 grams amlodipine 10 mg tablet 10 mg PO DAILY #90 tabs 02/08/22 buspirone 5 mg tablet 5 mg PO BID #60 tabs 02/08/22 folic acid 1 mg tablet 1 mg PO DAILY #90 tabs 02/08/22 melatonin 3 mg capsule 6 mg PO HS #180 caps 02/08/22 metoprolol tartrate 50 mg tablet 50 mg PO DAILY #90 tabs 02/08/22 mirtazapine 7.5 mg tablet 7.5 mg PO QHS #90 tabs 02/08/22 sucralfate 1 gram tablet 1 g PO BID #60 tabs 02/08/22 thiamine HCl (vitamin B1) 100 mg 100 mg PO DAILY #90 tabs 02/08/22 tablet valacyclovir 500 mg tablet 500 mg PO DAILY #90 tabs 02/08/22 (Valtrex) fluticasone propionate 50 2 spray NS daily prn #16 grams 03/06/22 mcg/actuation nasal spray,suspension budesonide 0.5 mg/2 mL suspension 0.5 mg (2 mL) inhalation DAILY #60 05/06/22 for nebulization (Pulmicort) mL pantoprazole 40 mg tablet,delayed 40 mg PO BID@0730,2000 #60 tabs 05/21/22 release cyanocobalamin (vitamin B-12) 500 1,000 mcg PO DAILY #180 tabs 07/10/22 mcg tablet (Vitamin B-12) ferrous sulfate 325 mg (65 mg 325 mg PO BID #180 tabs 07/10/22 iron) tablet multivitamin (Multiple Vitamins 1 tab PO DAILY #90 tabs 07/10/22 tablet) quetiapine 25 mg tablet See Rx Instructions PO BID #60 tabs 07/10/22 spironolactone 50 mg tablet 50 mg PO BID #180 tabs 07/10/22 (Aldactone) venlafaxine 75 mg capsule,extended 75 mg PO DAILY #90 caps 07/10/22 release 24 hr mirabegron 50 mg tablet,extended 50 mg PO DAILY #30 tabs 07/20/22 release 24 hr (Myrbetriq) aspirin 81 mg tablet,delayed 81 mg PO DAILY #90 tabs 08/05/22 release lorazepam 1 mg tablet 1 mg PO QHS PRN sleep #20 tabs 08/10/22 furosemide 20 mg tablet See Rx Instructions PO BID #180 08/11/22 tabs ondansetron 4 mg disintegrating 4 mg PO Q8H PRN nausea and 08/17/22 tablet vomiting #20 tabs ondansetron 4 mg disintegrating 4 mg PO TID PRN nausea and 08/24/22 tablet vomiting #6 tabs ondansetron 4 mg disintegrating 4 mg PO Q8H PRN nausea and 09/03/22 tablet vomiting #10 tabs Allergies Allergy/AdvReac Type Severity Reaction Status Date / Time Penicillins Allergy Mild Rash Verified 08/23/22 14:36 ramipril Allergy Unknown ITCHING Verified 08/23/22 14:36 meperidine [From Demerol] AdvReac Severe Nausea Verified 08/23/22 14:36 bupropion AdvReac Mild GI upset Verified 08/23/22 14:36 AMBER Inhibitors AdvReac Unknown COUGH Verified 08/23/22 14:36 alendronate sodium AdvReac Unknown GI Distress Verified 08/23/22 14:36 clarithromycin AdvReac Unknown intolerant Verified 08/23/22 14:36 paroxetine AdvReac Unknown Diarrhea Verified 08/23/22 14:36 General Stated Complaint: Abd Prob JORDAN: 3 Review of Systems Narrative: Review of Systems Constitutional: negative Eyes: negative ENT: negative Cardiovascular: negative Respiratory: negative Gastrointestinal: Nausea : negative Musculoskeletal: negative Skin: negative Neurologic: negative Psych: negative PFSH All Active Problems (Updated 09/03/22 @ 17:08 by Aydin Mauricio MD) Abdominal ascites (Acute) Noncompliance with medication regimen (Acute) Ascites due to chronic alcoholic hepatitis (Acute) Alcohol intoxication (Acute) Nausea and vomiting (Acute) Hypokalemia (Acute) Nausea and vomiting (Acute) Nausea (Acute) Thrombocytopenia (Chronic) Elevated bilirubin (Acute) Mixed stress and urge urinary incontinence (Acute) Thyroid nodule (Acute) Anxiety (Chronic) Adverse effect of metronidazole (Acute) Medication monitoring encounter (Acute) Advance care planning (Acute) Cirrhosis of liver with ascites (Acute) Animal bite of right hand with infection (Acute) Umbilical hernia (Acute) 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 ascites (Acute) Hyperbilirubinemia (Acute) Shortness of breath (Acute) Elevated blood pressure reading without diagnosis of hypertension (Acute) Left arm pain (Acute) Ambulatory dysfunction (Acute) Incontinence (Acute) Urge incontinence (Acute) Anorexia (Acute) Headache (Acute) Onychomycosis (Acute) Depression (Chronic) Chest pain (Acute) Foot pain, right (Acute) Tendinitis of left rotator cuff (Acute) Macrocytosis (Acute 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 Leukopenia (Acute) Headache (Acute) Epigastric abdominal pain (Acute) Calcific tendinitis of left shoulder (Acute) Pulmonary mass (Acute) spiculated mass Pneumonia (Acute) Depression with suicidal ideation (Acute) Alcohol abuse (Chronic) Diarrhea (Acute) Epigastric pain (Acute) Dehydration (Acute) Hypokalemia (Acute) Discharge planning issues (Acute) Palliative care patient (Acute) Difficult intravenous access (Acute) Multiple IV attempts, usually requires ultrasound placement. PTSD (post-traumatic stress disorder) (Acute) Anemia (Chronic) Depression (Chronic) Foot pain, right (Acute) T12 compression fracture (Acute) Presacral mass (Chronic) Deviated nasal septum (Acute) Frequent falls (Chronic) Head injury (Acute) Ambulatory dysfunction (Chronic) Shoulder pain, right (Chronic) Suicidal ideation (Acute) Dry eye (Acute) Pruritus (Acute) Dystrophic nail (Acute) AMBER (acute kidney injury) (Acute) Iron deficiency anemia (Chronic) Alcohol abuse (Chronic) Fall (Acute) Atelectasis of left lung (Chronic) Advance directive on file (Acute) Nodule of upper lobe of right lung (Acute ~09/13/18) 09/13/18 [facility]; 12mm SPICULATED -kb Cataract (Chronic 11/07/15) Hypertension (Chronic) high today; she will check readings at home Hyperlipidemia (Chronic) Back pain, chronic (Chronic) Depression (Chronic) Osteopenia (Chronic) Medical History Adjustment disorder with depressed mood Alcoholic ketosis Anemia Cervical radicular pain neck pain and [facility] 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) pls refrain from alcohol Chronic alcoholism she will not stop drinking unless she checks with me, so that we can help her avert withdrawal I do not think she is capable on her own--she would need placement to achieve required goal of 3 months of sobriety Chronic diarrhea Closed right humeral fracture Corneal ulcer, right (~08/23/18) 08/23/18; [facility]- Fracture of humerus, left, closed Genital herpes simplex recurrent gential; suppressive Valtrex GERD (gastroesophageal reflux disease) GI bleed (12/20/16) Hypertension Hypokalemia Hypomagnesemia Incidental lung nodule, greater than or equal to 8mm 1cm, spiculated, stable for many years, recommend f/u in 6 mo Multiple rib fractures 03/11/19 [facility] Non-cardiac chest pain (09/21/16[place] [facility] [place] NE[place]IVE MP Osteoarthritis Palliative care patient (03/21/17) Pancreatitis, alcoholic, acute Peripheral edema Photophobia of right eye Pleural effusion on left 03/11/19 [facility] Presacral mass (~09/15/18) 09/15/18 [facility] Sciatica right, epidural injuections [facility] Tubular adenoma of colon (01/28/17) Urinary incontinence 01/24/13 [place]ral [place] [facility] [place] 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 Bladder repair. Repair bladder injury, simple Family History Mother No problems noted. Father , DROWNED at age 50. No problems noted. Sister Personal history of malignant neoplasm MELANOMA Sister No problems noted. Grandfather Personal history of malignant neoplasm STOMACH Grandfather Personal history of malignant neoplasm PROSTATE Grandmother Heart disease [place] Acute ill-defined cerebrovascular disease Grandmother Personal history of malignant neoplasm UTERINE Aunt , LA Heart disease LA Aunt , LA Heart disease Brother No problems noted. Social History Smoking/Tobacco Use Status: Former Tobacco Use Quit Date: 08/05/20 Smoking risk assessment performed?: Yes Alcohol Intake: current Alcohol Intake frequency: 3 or more drinks per day Alcohol type: hard liquor Drug use: Never Substance use type: does not use Details: Last alcoholic drink Mike zhong, 2 days ago Current gender identity: female Do you feel safe at home: Yes Do you feel safe in your relationship?: Yes Exam Narrative Exam Narrative: Physical Examination General: alert, awake, cooperative, resting comfortably, no acute distress HEENT: normocephalic, atraumatic; PERRL, EOM intact, conjunctiva normal; no nasal discharge; moist mucous membranes, oral and pharyngeal mucosa normal, tolerating secretions Neck: supple, trachea midline; full ROM Chest: normal to inspection Respiratory: normal respiratory effort, speaking in full sentences, clear to auscultation, no wheezing, rales or rhonchi Cardiac: regular rate, regular rhythm, S1S2 intact, no murmurs rubs or gallops GI: abdomen soft, non-tender, slight abdominal distention with mild fluid wave, nontympanic nontender Skin: no lesions, rashes or trauma appreciated Neuro: AAOx3, normal speech, moving all extremities Psych: Appropriate mood and affect Course Vital Signs Vital signs: Vital Signs Temperature 37.0 C 09/03/22 15:20 Pulse 96 H 09/03/22 15:20 Respiratory Rate 22 09/03/22 15:20 Blood Pressure 151/84 H 09/03/22 15:20 Pulse Oximetry 98 09/03/22 15:20 Temperature 37.0 C 09/03/22 15:20 Temperature Source Oral 09/03/22 15:20 Pulse 96 H 09/03/22 15:20 Respiratory Rate 22 09/03/22 15:20 Respiratory Effort 09/03/22 15:25 Blood Pressure 151/84 H 09/03/22 15:20 Blood Pressure Position Supine 09/03/22 15:20 Pulse Oximetry 98 09/03/22 15:20 Oxygen Delivery Method Room Air 09/03/22 15:20 Oxygen Flow Rate 0 09/03/22 15:20 Pain Level 7 09/03/22 15:20 PAWSS Have you Been Recently Intoxicated or Drunk Within the Last 30 days?: No Have you Ever Experienced Previous Episodes of Alcohol Withdrawal?: Yes Have you ever Experienced Withdrawal Seizures?: No Have you ever Experienced Delirium Tremens(DT)s?: No Have you ever undergone Alcohol Rehabilitation Treatment (i.e, inpt ot outpatient treatment programs)?: No Have you ever Experienced Blackouts?: No Have you ever Combined Alcohol with other Downers within the last 90 days?: No Have you ever Combined Alcohol with any other Substance of Abuse during the last 90 days?: No Positive Blood Alcohol level on Presentation? [PCS.BAL]: No Evidence of Increased Autonomic Activity (i.e. HR>120, tremor, sweating, agitation, nausea)?: No Result: 1
[2022-09-03] MEDS: Famotidine 20 MG/2 ML VIAL IVP (16:05)
[2022-09-03] MEDS: Ondansetron 4 MG/2 ML VIAL IVP (16:05)
[2022-09-03] MEDS: Mylanta Suspension 30 ML CUP PO (16:07)
[2022-09-03] MEDS: Normal Saline 500 ML 1000 ML IV (16:11)
[2022-09-03 16:12] LABS: Abs Immature Grans 0.03 10^3/uL (0.0-0.06); Absolute Basophil Count 0.01 10^3/uL (0.0-0.2); Absolute Lymphocyte Count 0.79 10^3/uL (1.2-3.4); Absolute Monocyte Count 0.48 10^3/uL (0.1-0.8); Absolute Neutrophil Count 3.68 10^3/uL (1.2-6.7); Basophils % 0.2; HCT 31.9 % (36.0-46.0); HGB 10.7 g/dL (11.2-15.7); Immature Grans % 0.6; Lymphocytes % 15.8; MCH 33.5 pg (27.0-33.0); MCHC 33.5 % (32.0-36.0); MCV 100 fL (80-95); MPV 9.2 fL (8.0-11.0); Monocytes % 9.6; Neutrophils % 73.8; Platelet Count 159 10^3/uL (130-400); RBC 3.19 10^6/uL (3.93-5.22); RDW 14.8 % (11.7-14.6); RDW-SD 54.9 fL; WBC 4.99 10^3/uL (4.4-10.8)
[2022-09-03 16:25] LABS: ALT 26 U/L (14-59); AST 36 U/L (15-37); Albumin 3.3 g/dL (3.4-5.0); Alkaline Phosphatase 186 U/L (46-116); BUN 13 mg/dL (7-18); Bilirubin, Total 3.7 mg/dL (0.2-1.0); Calcium 8.7 mg/dL (8.5-10.1); Chloride 101 mmol/L (98-107); Estimated GFR 58.39 (mL/min/1.73m2); Glucose 135 mg/dL (74-106); Lipase 23 U/L (73-393); Potassium 3.6 mmol/L (3.5-5.1); Sodium 136 mmol/L (136-145); Total Protein 6.3 g/dL (6.4-8.2)
[2022-09-03 17:30] VITALS: BP 168/79; PULSE 98; RESP 18; O2SAT 99
== END 2022-09-03 17:33 | disposition home or self-care (01) ==
PROVIDERS: Emergency Provider Emergency Medicine; PCP Family Medicine
DX: R11.0 Nausea (principal); R14.0 Abdominal distension (gaseous); I10 Essential (primary) hypertension; Z87.19 Personal history of other diseases of the digestive system
CPT/HCPCS: 36415; 80053; 83690; 93005; 96374; 96375; 99284; 85025; 93010; J2405

== ENCOUNTER → 2022-09-06 10:03 | Outpatient (BNVA) | payer MEDICARE, SELFPAY | PROVIDERS: PCP Family Medicine; Referring Provider Family Medicine; Visit Provider Surgery | DX: R10.13 Epigastric pain (principal) | CPT/HCPCS: 99215 ==

== ENCOUNTER 2022-09-11 12:56 | Emergency (ER) | payer MEDICARE, SELFPAY ==
--- NOTE | 2022-09-11 12:45 | RT.EKG_ITS ---
APPROVED REPORT Exam: Resting ECG Reason for Exam: vomiting and diarrhea Patient Location: E HR:100 bpm ECG Measurements Heart Rate 100 AXIS DE 191 P 23 QRSd 87 QRS -27 QT 391 T -19 QTc 506 Conclusion Sinus tachycardia...rate> 99 Probable anterior infarct, age indeterminate...Q >35mS, T neg, V2-V5 Prolonged QT interval...QTc >500mS sinus tachycardia, left axis, normal intervals, non ischemic
[2022-09-11 12:57] VITALS: BP 164/83; PULSE 102; RESP 16; TEMP 37.9; O2SAT 97
--- NOTE | 2022-09-11 13:15 | DI.RAD_ITS ---
Exam(s) XR PORTABLE CHEST AP EXAM: XR PORTABLE CHEST AP CLINICAL HISTORY: fever TECHNIQUE: 2D digital imaging was performed of the chest. One image was obtained. An AP view was ob tained. COMPARISON: CR XR CHEST 2V PA LATERAL from 07/29/2022 FINDINGS: There is poor inspiration. MEDIASTINUM: Normal. HEART: Normal. PULMONARY VASCULATURE: Normal. LUNGS: No focal consolidating infiltrates are seen. PLEURAL SPACE: No pleural effusion or pneumothorax. BONE:Within normal limits for the patient's age. There are old bilateral healed rib fractures. There is chronic deformity seen at the distal clavicles bilaterally. OTHER FINDINGS:Normal. IMPRESSION: No acute pulmonary findings. DATA REPOSITORY: RADIATION DOSE DELIVERED:
--- NOTE | 2022-09-11 13:31 | ED.GENADUL_ITS ---
Discharge Plan Disposition Patient Disposition: Home Condition: Improving Discharge Details Clinical Impression: Acute UTI Primary Care Provider: Lavelle Galindo ED Provider: Aydin Mauricio Home Meds and New Rx's Prescriptions: New cefpodoxime 100 mg tablet 100 mg PO BID 7 Days Qty: 14 0RF Rx Instructions: must administer with a meal/food No Action Xiidra 5 % dropperette 1 drp ophthalmic (eye) BID Rx Instructions: administer approximately 12 hours apart budesonide [Pulmicort] 0.5 mg/2 mL suspension for nebulization 0.5 mg inhalation DAILY Qty: 60 5RF furosemide 20 mg tablet See Rx Instructions PO BID Qty: 180 3RF Rx Instructions: orally twice a day; 3 tabs (60mg) in AM and 2 tabs(40mg in afternoon; ipratropium-albuterol 0.5 mg-3 mg(2.5 mg base)/3 mL solution for nebulization 3 ml inhalation Q6H PRN Myrbetriq 50 mg tablet extended release 24 hr 50 mg PO DAILY Qty: 30 12RF albuterol sulfate [Ventolin HFA] 90 mcg/actuation HFA aerosol inhaler 2 puff inhalation QID PRN (Reason: shortness of breath or wheezing) Qty: 8.5 1RF amlodipine 10 mg tablet 10 mg PO DAILY Qty: 90 3RF buspirone 5 mg tablet 5 mg PO BID Qty: 60 5RF folic acid 1 mg tablet 1 mg PO DAILY Qty: 90 3RF melatonin 3 mg capsule 6 mg PO HS Qty: 180 3RF metoprolol tartrate 50 mg tablet 50 mg PO DAILY Qty: 90 3RF mirtazapine 7.5 mg tablet 7.5 mg PO QHS Qty: 90 4RF sucralfate 1 gram tablet 1 g PO BID Qty: 60 11RF thiamine HCl (vitamin B1) 100 mg tablet 100 mg PO DAILY Qty: 90 3RF valacyclovir [Valtrex] 500 mg tablet 500 mg PO DAILY Qty: 90 3RF Rx Instructions: Take 500 mg BID for 3 days, then take daily fluticasone propionate 50 mcg/actuation spray,suspension 2 spray NS daily prn Qty: 16 5RF cyanocobalamin (vitamin B-12) [Vitamin B-12] 500 mcg tablet 1,000 mcg PO DAILY Qty: 180 3RF ferrous sulfate 325 mg (65 mg iron) tablet 325 mg PO BID Qty: 180 3RF Rx Instructions: do not take within 2 hours of antibiotics multivitamin [Multiple Vitamins] Tablet 1 tab PO DAILY Qty: 90 3RF quetiapine 25 mg tablet See Rx Instructions PO BID Qty: 60 5RF Rx Instructions: 0.5 tab PO twice a day; spironolactone [Aldactone] 50 mg tablet 50 mg PO BID Qty: 180 3RF venlafaxine 75 mg capsule,extended release 24hr 75 mg PO DAILY Qty: 90 3RF Hold Instructions: Home Medication placed on hold at Doctor's office aspirin 81 mg tablet,delayed release (DR/EC) 81 mg PO DAILY Qty: 90 3RF lorazepam 1 mg tablet 1 mg PO QHS PRN (Reason: sleep) Qty: 20 0RF ondansetron 4 mg tablet,disintegrating 4 mg PO Q8H PRN (Reason: nausea and vomiting) Qty: 20 2RF carboxymethylcellulose sodium [Refresh Plus] 0.5 % Dropperette 1 drp OU Q4H WHILE AWAKE Qty: 30 0RF Label Comments: 08/15/19 pt states that she took her blister pack of meds but that she vomited them up pantoprazole 40 mg Tablet,Delayed Release (Dr/Ec) 40 mg PO BID@729,1999 Qty: 60 0RF ondansetron 4 mg tablet,disintegrating 4 mg PO TID PRN (Reason: nausea and vomiting) Qty: 6 0RF ondansetron 4 mg tablet,disintegrating 4 mg PO Q8H PRN (Reason: nausea and vomiting) Qty: 10 0RF Discharge Instructions Instructions: Urinary Tract Infection in Women (ED) Additional Instructions: Please follow with your primary care physician. Medical Decision Making 77-year-old female history of alcoholism, cirrhosis, ascites presents with nausea vomiting and loose stool over the past several days decreased p.o. intake. Mildly tachycardic on arrival low-grade fever on arrival. Patient resting comfortably currently sleeping. Normotensive normal mental status abdomen soft with ascites and fluid wave. No active vomiting. Patient was seen multiple times in the past for similar presentation. Usually treated successfully with fluids and antiemetics. Patient is a chronic drinker last drink within the last week no signs withdrawal at this time however will dose half milligram of Ativan on top of famotidine Zofran fluids and viscous lidocaine. Obtain basic labs COVID and flu swab, chest x-ray and urinalysis given fever. Disposition likely home with close follow-up 16: 11 patient resting comfortably no acute distress. Evidence of UTI. Will start on antibiotics. HPI General Date/Time Provider Initiated Documentation: 09/11/22 12:58 . HPI Narrative: 77-year-old female history of alcohol abuse cirrhosis ascites presents with recurrent nausea acute on chronic, endorses mild loose stool over the past several days and decreased p.o. intake. Patient scheduled for elective paracentesis on at surgical clinic. Related Data Home Medications Medication Instructions Recorded Confirmed carboxymethylcellulose sodium 0.5 1 drp OU Q4H WHILE AWAKE #30 ea 06/20/19 09/11/22 % eye drops in a dropperette (Refresh Plus) lifitegrast 5 % eye drops in a 1 drp ophthalmic (eye) BID 08/05/20 09/11/22 dropperette (Xiidra) ipratropium 0.5 mg-albuterol 3 mg 3 ml inhalation Q6H PRN 12/25/21 09/11/22 (2.5 mg base)/3 mL nebulization soln albuterol sulfate 90 mcg/actuation 2 puff inhalation QID PRN 02/08/22 09/11/22 aerosol inhaler (Ventolin HFA) shortness of breath or wheezing #8.5 grams amlodipine 10 mg tablet 10 mg PO DAILY #90 tabs 02/08/22 09/11/22 buspirone 5 mg tablet 5 mg PO BID #60 tabs 02/08/22 09/11/22 folic acid 1 mg tablet 1 mg PO DAILY #90 tabs 02/08/22 09/11/22 melatonin 3 mg capsule 6 mg PO HS #180 caps 02/08/22 09/11/22 metoprolol tartrate 50 mg tablet 50 mg PO DAILY #90 tabs 02/08/22 09/11/22 mirtazapine 7.5 mg tablet 7.5 mg PO QHS #90 tabs 02/08/22 09/11/22 sucralfate 1 gram tablet 1 g PO BID #60 tabs 02/08/22 09/11/22 thiamine HCl (vitamin B1) 100 mg 100 mg PO DAILY #90 tabs 02/08/22 09/11/22 tablet valacyclovir 500 mg tablet 500 mg PO DAILY #90 tabs 02/08/22 09/11/22 (Valtrex) fluticasone propionate 50 2 spray NS daily prn #16 grams 03/06/22 09/11/22 mcg/actuation nasal spray,suspension budesonide 0.5 mg/2 mL suspension 0.5 mg (2 mL) inhalation DAILY #60 05/06/22 09/11/22 for nebulization (Pulmicort) mL pantoprazole 40 mg tablet,delayed 40 mg PO BID@0730,1999 #60 tabs 05/21/22 09/11/22 release cyanocobalamin (vitamin B-12) 500 1,000 mcg PO DAILY #180 tabs 07/10/22 09/11/22 mcg tablet (Vitamin B-12) ferrous sulfate 325 mg (65 mg 325 mg PO BID #180 tabs 07/10/22 09/11/22 iron) tablet multivitamin (Multiple Vitamins 1 tab PO DAILY #90 tabs 07/10/22 09/11/22 tablet) quetiapine 25 mg tablet See Rx Instructions PO BID #60 tabs 07/10/22 09/11/22 spironolactone 50 mg tablet 50 mg PO BID #180 tabs 07/10/22 09/11/22 (Aldactone) venlafaxine 75 mg capsule,extended 75 mg PO DAILY #90 caps 07/10/22 09/11/22 release 24 hr mirabegron 50 mg tablet,extended 50 mg PO DAILY #30 tabs 07/20/22 09/11/22 release 24 hr (Myrbetriq) aspirin 81 mg tablet,delayed 81 mg PO DAILY #90 tabs 08/05/22 09/11/22 release lorazepam 1 mg tablet 1 mg PO QHS PRN sleep #20 tabs 08/10/22 09/11/22 furosemide 20 mg tablet See Rx Instructions PO BID #180 08/11/22 09/11/22 tabs ondansetron 4 mg disintegrating 4 mg PO Q8H PRN nausea and 08/17/22 09/11/22 tablet vomiting #20 tabs ondansetron 4 mg disintegrating 4 mg PO TID PRN nausea and 08/24/22 09/11/22 tablet vomiting #6 tabs ondansetron 4 mg disintegrating 4 mg PO Q8H PRN nausea and 09/03/22 09/11/22 tablet vomiting #10 tabs cefpodoxime 100 mg tablet 100 mg PO BID 7 days #14 tabs 09/11/22 Previous Rx's Medication Instructions Recorded carboxymethylcellulose sodium 0.5 1 drp OU Q4H WHILE AWAKE #30 ea 06/20/ % eye drops in a dropperette (Refresh Plus) albuterol sulfate 90 mcg/actuation 2 puff inhalation QID PRN 02/08/22 aerosol inhaler (Ventolin HFA) shortness of breath or wheezing #8.5 grams amlodipine 10 mg tablet 10 mg PO DAILY #90 tabs 02/08/22 buspirone 5 mg tablet 5 mg PO BID #60 tabs 02/08/22 folic acid 1 mg tablet 1 mg PO DAILY #90 tabs 02/08/22 melatonin 3 mg capsule 6 mg PO HS #180 caps 02/08/22 metoprolol tartrate 50 mg tablet 50 mg PO DAILY #90 tabs 02/08/22 mirtazapine 7.5 mg tablet 7.5 mg PO QHS #90 tabs 02/08/22 sucralfate 1 gram tablet 1 g PO BID #60 tabs 02/08/22 thiamine HCl (vitamin B1) 100 mg 100 mg PO DAILY #90 tabs 02/08/22 tablet valacyclovir 500 mg tablet 500 mg PO DAILY #90 tabs 02/08/22 (Valtrex) fluticasone propionate 50 2 spray NS daily prn #16 grams 03/06/22 mcg/actuation nasal spray,suspension budesonide 0.5 mg/2 mL suspension 0.5 mg (2 mL) inhalation DAILY #60 05/06/22 for nebulization (Pulmicort) mL pantoprazole 40 mg tablet,delayed 40 mg PO BID@0730,2000 #60 tabs 05/21/22 release cyanocobalamin (vitamin B-12) 500 1,000 mcg PO DAILY #180 tabs 07/10/22 mcg tablet (Vitamin B-12) ferrous sulfate 325 mg (65 mg 325 mg PO BID #180 tabs 07/10/22 iron) tablet multivitamin (Multiple Vitamins 1 tab PO DAILY #90 tabs 07/10/22 tablet) quetiapine 25 mg tablet See Rx Instructions PO BID #60 tabs 07/10/22 spironolactone 50 mg tablet 50 mg PO BID #180 tabs 07/10/22 (Aldactone) venlafaxine 75 mg capsule,extended 75 mg PO DAILY #90 caps 07/10/22 release 24 hr mirabegron 50 mg tablet,extended 50 mg PO DAILY #30 tabs 07/20/22 release 24 hr (Myrbetriq) aspirin 81 mg tablet,delayed 81 mg PO DAILY #90 tabs 08/05/22 release lorazepam 1 mg tablet 1 mg PO QHS PRN sleep #20 tabs 08/10/22 furosemide 20 mg tablet See Rx Instructions PO BID #180 08/11/22 tabs ondansetron 4 mg disintegrating 4 mg PO Q8H PRN nausea and 08/17/22 tablet vomiting #20 tabs ondansetron 4 mg disintegrating 4 mg PO TID PRN nausea and 08/24/22 tablet vomiting #6 tabs ondansetron 4 mg disintegrating 4 mg PO Q8H PRN nausea and 09/03/22 tablet vomiting #10 tabs cefpodoxime 100 mg tablet 100 mg PO BID 7 days #14 tabs 09/11/22 Allergies Allergy/AdvReac Type Severity Reaction Status Date / Time Penicillins Allergy Mild Rash Verified 09/11/22 13:02 ramipril Allergy Unknown ITCHING Verified 09/11/22 13:02 meperidine [From Demerol] AdvReac Severe Nausea Verified 09/11/22 13:02 bupropion AdvReac Mild GI upset Verified 09/11/22 13:02 AMBER Inhibitors AdvReac Unknown COUGH Verified 09/11/22 13:02 alendronate sodium AdvReac Unknown GI Distress Verified 09/11/22 13:02 clarithromycin AdvReac Unknown intolerant Verified 09/11/22 13:02 paroxetine AdvReac Unknown Diarrhea Verified 09/11/22 13:02 General Stated Complaint: Nausea/Vomit/Diar JORDAN: 3 Review of Systems Narrative: Review of Systems Constitutional: negative Eyes: negative ENT: negative Cardiovascular: negative Respiratory: negative Gastrointestinal: Nausea : negative Musculoskeletal: negative Skin: negative Neurologic: negative Psych: negative PFSH All Active Problems (Updated 09/11/22 @ 16:12 by Aydin Mauricio MD) Noncompliance with medication regimen (Acute) Ascites due to chronic alcoholic hepatitis (Acute) Alcohol intoxication (Acute) Nausea and vomiting (Acute) Hypokalemia (Acute) Nausea and vomiting (Acute) Nausea (Acute) Acute UTI (Acute) Thrombocytopenia (Chronic) Elevated bilirubin (Acute) Mixed stress and urge urinary incontinence (Acute) Thyroid nodule (Acute) Anxiety (Chronic) Adverse effect of metronidazole (Acute) Medication monitoring encounter (Acute) Advance care planning (Acute) Cirrhosis of liver with ascites (Acute) Animal bite of right hand with infection (Acute) Umbilical hernia (Acute) 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 ascites (Acute) Hyperbilirubinemia (Acute) Shortness of breath (Acute) Elevated blood pressure reading without diagnosis of hypertension (Acute) Left arm pain (Acute) Ambulatory dysfunction (Acute) Incontinence (Acute) Urge incontinence (Acute) Anorexia (Acute) Headache (Acute) Onychomycosis (Acute) Depression (Chronic) Chest pain (Acute) Foot pain, right (Acute) Tendinitis of left rotator cuff (Acute) Macrocytosis (Acute 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 Leukopenia (Acute) Headache (Acute) Epigastric abdominal pain (Acute) Calcific tendinitis of left shoulder (Acute) Pulmonary mass (Acute) spiculated mass Pneumonia (Acute) Depression with suicidal ideation (Acute) Alcohol abuse (Chronic) Diarrhea (Acute) Epigastric pain (Acute) Dehydration (Acute) Hypokalemia (Acute) Discharge planning issues (Acute) Palliative care patient (Acute) Difficult intravenous access (Acute) Multiple IV attempts, usually requires ultrasound placement. PTSD (post-traumatic stress disorder) (Acute) Anemia (Chronic) Depression (Chronic) Foot pain, right (Acute) T12 compression fracture (Acute) Presacral mass (Chronic) Deviated nasal septum (Acute) Frequent falls (Chronic) Head injury (Acute) Ambulatory dysfunction (Chronic) Shoulder pain, right (Chronic) Suicidal ideation (Acute) Dry eye (Acute) Pruritus (Acute) Dystrophic nail (Acute) AMBER (acute kidney injury) (Acute) Iron deficiency anemia (Chronic) Alcohol abuse (Chronic) Fall (Acute) Atelectasis of left lung (Chronic) Advance directive on file (Acute) Nodule of upper lobe of right lung (Acute ~09/13/18) [facility] Cataract (Chronic 11/07/15) Hypertension (Chronic) high today; she will check readings at home Hyperlipidemia (Chronic) Back pain, chronic (Chronic) Depression (Chronic) Osteopenia (Chronic) Medical History Adjustment disorder with depressed mood Alcoholic ketosis Anemia Cervical radicular pain neck pain and [facility] 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) pls refrain from alcohol Chronic alcoholism she will not stop drinking unless she checks with me, so that we can help her avert withdrawal I do not think she is capable on her own--she would need placement to achieve required goal of 3 months of sobriety Chronic diarrhea Closed right humeral fracture Corneal ulcer, right (~08/23/18) 08/23/18; [facility] Fracture of humerus, left, closed Genital herpes simplex recurrent gential; suppressive Valtrex GERD (gastroesophageal reflux disease) GI bleed (12/20/16) Hypertension Hypokalemia Hypomagnesemia Incidental lung nodule, greater than or equal to 8mm 1cm, spiculated, stable for many years, recommend f/u in 6 mo Multiple rib fractures 03/11/19 [facility] Non-cardiac chest pain (09/21/16[place] [facility] [place] NEGATIVE MP Osteoarthritis Palliative care patient (03/21/17) Pancreatitis, alcoholic, acute Peripheral edema Photophobia of right eye Pleural effusion on left 03/11/19 [facility] Presacral mass (~09/15/18) 09/15/18 [facility] Sciatica right, epidural injuections [facility] Tubular adenoma of colon (01/28/17) Urinary incontinence 01/24/13 urethral suspension and [place] [facility] [place] 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 Bladder repair. Repair bladder injury, simple Family History Mother No problems noted. Father , DROWNED at age 50. No problems noted. Sister Personal history of malignant neoplasm MELANOMA Sister No problems noted. Grandfather Personal history of malignant neoplasm STOMACH Grandfather Personal history of malignant neoplasm PROSTATE Grandmother Heart disease RI Acute ill-defined cerebrovascular disease Grandmother Personal history of malignant neoplasm UTERINE Aunt , RI Heart disease RI Aunt , RI Heart disease Brother No problems noted. Social History Smoking/Tobacco Use Status: Former Tobacco Use Quit Date: 08/05/20 Smoking risk assessment performed?: Yes Alcohol Intake: current Alcohol Intake frequency: 3 or more drinks per day Alcohol type: hard liquor Drug use: Never Substance use type: does not use Details: Last alcoholic drink Mike zhong, 2 days ago Current gender identity: female Do you feel safe at home: Yes Do you feel safe in your relationship?: Yes Exam Narrative Exam Narrative: Physical Examination General: alert, awake, cooperative, resting comfortably, no acute distress HEENT: normocephalic, atraumatic; PERRL, EOM intact, conjunctiva normal; no nasal discharge; moist mucous membranes, oral and pharyngeal mucosa normal, tolerating secretions Neck: supple, trachea midline; full ROM Chest: normal to inspection Respiratory: normal respiratory effort, speaking in full sentences, clear to auscultation, no wheezing, rales or rhonchi Cardiac: regular rate, regular rhythm, S1S2 intact, no murmurs rubs or gallops GI: abdomen soft, non-tender, mild abdominal distention with fluid wave nontense nonperitoneal Skin: Superficial half centimeter skin abrasion abdominal wall superior to umbilicus, hemostatic no foreign body no signs of infection Neuro: AAOx3, normal speech, moving all extremities Psych: Appropriate mood and affect Course Vital Signs Vital signs: Vital Signs Temperature 37.9 C H 09/11/22 12:57 Pulse 102 H 09/11/22 12:57 Respiratory Rate 16 09/11/22 12:57 Blood Pressure 164/83 H 09/11/22 12:57 Pulse Oximetry 97 09/11/22 12:57 Temperature 37.9 C H 09/11/22 12:57 Temperature Source Skin 09/11/22 12:57 Pulse 102 H 09/11/22 12:57 Respiratory Rate 16 09/11/22 12:57 Respiratory Effort 09/11/22 13:03 Blood Pressure 164/83 H 09/11/22 12:57 Blood Pressure Position Supine 09/11/22 12:57 Pulse Oximetry 97 09/11/22 12:57 Oxygen Delivery Method Room Air 09/11/22 12:57 Oxygen Flow Rate 0 09/11/22 12:57 Pain Level 7 09/11/22 12:57 PAWSS Have you Been Recently Intoxicated or Drunk Within the Last 30 days?: Yes Have you Ever Experienced Previous Episodes of Alcohol Withdrawal?: Yes Have you ever Experienced Withdrawal Seizures?: No Have you ever Experienced Delirium Tremens(DT)s?: No Have you ever undergone Alcohol Rehabilitation Treatment (i.e, inpt ot outpatient treatment programs)?: Yes Have you ever Experienced Blackouts?: No Have you ever Combined Alcohol with other Downers within the last 90 days?: No Have you ever Combined Alcohol with any other Substance of Abuse during the last 90 days?: No Positive Blood Alcohol level on Presentation? [PCS.BAL]: No Evidence of Increased Autonomic Activity (i.e. HR>120, tremor, sweating, agitation, nausea)?: No Result: 3
--- NOTE | 2022-09-11 14:09 | DI.VRAD_ITS ---
PROCEDURE INFORMATION: Exam: XR Chest Exam date and time: 09/11/2022 1:23 PM Age: 77 years old Clinical indication: Fever TECHNIQUE: Imaging protocol: Radiologic exam of the chest. 1image(s) are provided. Views: 1 view. COMPARISON: CR XR CHEST 2V PA LATERAL 07/29/2022 3:16 PM FINDINGS: Lungs: The lung volumes are slightly lower which may be effort related exaggerating the bronchovascular markings. There is some bandlike subsegmental atelectasis versus postinflammatory scarring at the left lung base similar overall.No lobar consolidation is appreciated. Pleural spaces: No pneumothorax or pleural effusion is appreciated. Heart/Mediastinum: The cardiomediastinal silhouette is upper normal in size.This can be seen with central averaging as well as yadiel enlargement. Diaphragm: There is slight asymmetric right hemidiaphragm elevation. Bones/joints: There are chronic osseous deformities present overall similar throughout. Soft tissues: No radiopaque foreign body or subcutaneous emphysema is appreciated. No significant interval changes are appreciated. IMPRESSION: There is some bandlike subsegmental atelectasis with chronic appearing scarring at the left lung base similar overall.No lobar consolidation is appreciated.No significant change of parenchymal aeration is appreciated. Dictated and Authenticated by: Varun Alberto MD. Ordering:LAUREN Perrin MD
[2022-09-11 14:20] VITALS: PULSE 89; O2SAT 98
[2022-09-11 14:29] VITALS: TEMP 37.9
[2022-09-11] MEDS: Acetaminophen 325 MG TAB PO (14:29)
[2022-09-11] MEDS: Lidocaine 2% Viscous 1 ML Solution 15 ML PO (14:30)
[2022-09-11] MEDS: Mylanta Suspension 30 ML CUP PO (14:31)
[2022-09-11 14:34] VITALS: PULSE 89; O2SAT 98
[2022-09-11 14:34] LABS: Absolute Basophil Count 0.01 10^3/uL (0.0-0.2); Absolute Lymphocyte Count 0.65 10^3/uL (1.2-3.4); Absolute Monocyte Count 0.36 10^3/uL (0.1-0.8); Absolute Neutrophil Count 1.78 10^3/uL (1.2-6.7); Basophils % 0.4; HCT 32.4 % (36.0-46.0); HGB 10.7 g/dL (11.2-15.7); Lymphocytes % 23.2; MCH 33.6 pg (27.0-33.0); MCV 102 fL (80-95); MPV 8.9 fL (8.0-11.0); Monocytes % 12.9; Neutrophils % 63.5; Platelet Count 143 10^3/uL (130-400); RBC 3.18 10^6/uL (3.93-5.22); RDW 15.3 % (11.7-14.6); RDW-SD 57.3 fL
[2022-09-11] MEDS: Normal Saline 500 ML 1000 ML IV (14:40)
[2022-09-11] MEDS: LORazepam 2 MG/ML VIAL 0.5 MG IVP (14:43)
[2022-09-11] MEDS: Ondansetron 4 MG/2 ML VIAL IVP (14:43)
[2022-09-11] MEDS: Famotidine 20 MG/2 ML VIAL IVP (14:49)
[2022-09-11 14:51] VITALS: BP 164/75; PULSE 91; O2SAT 98
[2022-09-11 14:52] LABS: ALT 26 U/L (14-59); AST 38 U/L (15-37); Albumin 3.2 g/dL (3.4-5.0); Alkaline Phosphatase 164 U/L (46-116); Anion Gap 11.2 mmol/L (3-11); BUN 17 mg/dL (7-18); Bilirubin, Total 3.2 mg/dL (0.2-1.0); CO2 25.8 mmol/L (21.0-32.0); CREATININE 1.4 mg/dL (0.55-1.02); Calcium 9.3 mg/dL (8.5-10.1); Chloride 102 mmol/L (98-107); Estimated GFR 38.99 (mL/min/1.73m2); Glucose 129 mg/dL (74-106); Lipase 20 U/L (73-393); Potassium 4.1 mmol/L (3.5-5.1); Sodium 139 mmol/L (136-145); Total Protein 6.2 g/dL (6.4-8.2)
[2022-09-11 15:12] VITALS: BP 149/60; PULSE 88; O2SAT 97
[2022-09-11 15:44] LABS: Bilirubin Negative (Negative); Blood Trace-intact (Negative); Clarity Cloudy (Clear); Glucose Negative (Negative); Ketones 40 mg/dL (Negative); Leukocyte Esterase Trace (Negative); Nitrite Positive (Negative); Urobilinogen 0.2 EU/dL (Up TO 0.2)
[2022-09-11 15:52] LABS: Bacteria Many HPF (Negative); C & S Indicated? Yes; Crystals Negative HPF (Negative); Epithelial Cells Few HPF (Negative); Mucus Trace (Negative); RBC 0-2 HPF (0-2); WBC 20-50 HPF (0-5)
[2022-09-11] MEDS: Cefpodoxime 200 MG TAB PO (16:08)
== END 2022-09-11 16:22 | disposition home or self-care (01) ==
PROVIDERS: Emergency Provider Emergency Medicine; PCP Family Medicine
DX: N39.0 Urinary tract infection, site not specified (principal); I10 Essential (primary) hypertension; S30.811A Abrasion of abdominal wall, initial encounter; Z20.822 Contact with and (suspected) exposure to COVID-19; X58.XXXA Exposure to other specified factors, initial encounter
CPT/HCPCS: 36415; 80053; 83690; 87077; 93005; 96374; 96375; 99284; 71045; 81003; 81015; 85025; 87086; 87186; 93010; 99285; J2060; J2405

== ENCOUNTER 2022-09-16 12:32 | Day surgery (SDC) | payer MEDICARE, SELFPAY ==
--- NOTE | 2022-09-15 20:52 | ROE_ITS ---
Date of service: 09/16/22 Time of Service: 15:06 Operative Note Operative Note DATE OF PROCEDURE: 09/16/22 PRE-OP DIAGNOSIS: Ascites POST-OP DIAGNOSIS: same PROCEDURE: Paracentesis SURGEON: Angelito Noble ANESTHESIA TYPE: Local By Surgeon ESTIMATED BLOOD LOSS: 5 PATHOLOGY: none sent COMPLICATIONS: None Patient was transported to: same day Patient's condition: stable Indications: Leticia Ingram is a 77-year-old woman with cirrhosis and tense ascites. She is undergone paracentesis in the past with some relief of her symptoms. She is interested in another palliative paracentesis for abdominal pain. Findings: 2300 milliliters of straw-colored ascites Procedure Description: I started by performing a limited ultrasound of the abdomen to identify appropriate site for paracentesis. Next, I selected the right lower quadrant as the ideal site for paracentesis. The left side has only a small pocket of ascites, and there is a fairly thickened amount of peritoneum and adjacent bowel in the area. I then prepped and draped the abdomen. Next, using ultrasound guidance, I anesthetized the skin with 1% lidocaine. I used the ultrasound to guide the needle down to the peritoneal level which was also anesthetized. I then made a small incision in the skin with a 11 blade scalpel. Next, I advanced the 5 Nauruan paracentesis needle and catheter through the incision and into the peritoneal cavity under the direct vision of the ultrasound. I aspirated straw-colored ascites. Next, I gently advance the catheter and remove the needle. I affixed drainage tubing, and began draining the ascites with the assistance of Vacutainer's. I drained 2200 mL of ascites. As the flow decreased, I assisted the patient to the left lateral decubitus position to improve drainage. I also switched to a hand pump and drained approximately 100 mL more. Once the ascites stopped flowing, I removed the catheter and used Band-Aid to dress the wound.
--- NOTE | 2022-09-15 20:53 | PDOC.DSDIS_ITS ---
Date of service: 09/16/22 Time of Service: 15:09 Discharge Plan Disposition Patient Disposition: Home Condition: Good Discharge Details Reason For Visit: Paracents[facility] Attending Provider: Angelito Noble Primary Care Provider: Lavelle Galindo Home Meds and New Rx's Prescriptions: Continued Xiidra 5 % dropperette 1 drp ophthalmic (eye) BID Rx Instructions: administer approximately 12 hours apart budesonide [Pulmicort] 0.5 mg/2 mL suspension for nebulization 0.5 mg inhalation DAILY Qty: 60 5RF Label Comments: pt states meds come in blister pack labeled daily by [employer] and she takes them but doesn't know the names furosemide 20 mg tablet See Rx Instructions PO BID Qty: 180 3RF Label Comments: pt states meds come in blister pack labeled daily by [employer] and she takes them but doesn't know the names Rx Instructions: orally twice a day; 3 tabs (60mg) in AM and 2 tabs(40mg in afternoon; ipratropium-albuterol 0.5 mg-3 mg(2.5 mg base)/3 mL solution for nebulization 3 ml inhalation Q6H PRN Label Comments: pt states meds come in blister pack labeled daily by [employer] and she takes them but doesn't know the names Myrbetriq 50 mg tablet extended release 24 hr 50 mg PO DAILY Qty: 30 12RF lorazepam 1 mg tablet 0.5 - 1 mg PO QHS PRN (Reason: sleep) Qty: 20 0RF Label Comments: pt states meds come in blister pack labeled daily by [employer] and she takes them but doesn't know the names albuterol sulfate [Ventolin HFA] 90 mcg/actuation HFA aerosol inhaler 2 puff inhalation QID PRN (Reason: shortness of breath or wheezing) Qty: 8.5 1RF amlodipine 10 mg tablet 10 mg PO DAILY Qty: 90 3RF Label Comments: pt states meds come in blister pack labeled daily by [employer] and she takes them but doesn't know the names buspirone 5 mg tablet 5 mg PO BID Qty: 60 5RF Label Comments: pt states meds come in blister pack labeled daily by [employer] and she takes them but doesn't know the names folic acid 1 mg tablet 1 mg PO DAILY Qty: 90 3RF Label Comments: pt states meds come in blister pack labeled daily by [employer] and she takes them but doesn't know the names melatonin 3 mg capsule 6 mg PO HS Qty: 180 3RF Label Comments: pt states meds come in blister pack labeled daily by [employer] and she takes them but doesn't know the names metoprolol tartrate 50 mg tablet 50 mg PO DAILY Qty: 90 3RF Label Comments: pt states meds come in blister pack labeled daily by [employer] and she takes them but doesn't know the names mirtazapine 7.5 mg tablet 7.5 mg PO QHS Qty: 90 4RF Label Comments: pt states meds come in blister pack labeled daily by [employer] and she takes them but doesn't know the names sucralfate 1 gram tablet 1 g PO BID Qty: 60 11RF Label Comments: pt states meds come in blister pack labeled daily by [employer] and she takes them but doesn't know the names thiamine HCl (vitamin B1) 100 mg tablet 100 mg PO DAILY Qty: 90 3RF Label Comments: pt states meds come in blister pack labeled daily by [employer] and she takes them but doesn't know the names valacyclovir [Valtrex] 500 mg tablet 500 mg PO DAILY Qty: 90 3RF Label Comments: pt states meds come in blister pack labeled daily by [employer] and she takes them but doesn't know the names Rx Instructions: Take 500 mg BID for 3 days, then take daily fluticasone propionate 50 mcg/actuation spray,suspension 2 spray NS daily prn Qty: 16 5RF Label Comments: pt states meds come in blister pack labeled daily by [employer] and she takes them but doesn't know the names cyanocobalamin (vitamin B-12) [Vitamin B-12] 500 mcg tablet 1,000 mcg PO DAILY Qty: 180 3RF Label Comments: pt states meds come in blister pack labeled daily by [employer] and she takes them but doesn't know the names ferrous sulfate 325 mg (65 mg iron) tablet 325 mg PO BID Qty: 180 3RF Label Comments: pt states meds come in blister pack labeled daily by [employer] and she takes them but doesn't know the names Rx Instructions: do not take within 2 hours of antibiotics multivitamin [Multiple Vitamins] Tablet 1 tab PO DAILY Qty: 90 3RF Label Comments: pt states meds come in blister pack labeled daily by [employer] and she takes them but doesn't know the names quetiapine 25 mg tablet See Rx Instructions PO BID Qty: 60 5RF Label Comments: pt states meds come in blister pack labeled daily by [employer] and she takes them but doesn't know the names Rx Instructions: 0.5 tab PO twice a day; spironolactone [Aldactone] 50 mg tablet 50 mg PO BID Qty: 180 3RF Label Comments: pt states meds come in blister pack labeled daily by [employer] and she takes them but doesn't know the names venlafaxine 75 mg capsule,extended release 24hr 75 mg PO DAILY Qty: 90 3RF Hold Instructions: Home Medication placed on hold at Doctor's office Label Comments: pt states meds come in blister pack labeled daily by [employer] and she takes them but doesn't know the names. aspirin 81 mg tablet,delayed release (DR/EC) 81 mg PO DAILY Qty: 90 3RF Label Comments: pt states meds come in blister pack labeled daily by [employer] and she takes them but doesn't know the names ondansetron 4 mg tablet,disintegrating 4 mg PO Q8H PRN (Reason: nausea and vomiting) Qty: 20 2RF carboxymethylcellulose sodium [Refresh Plus] 0.5 % Dropperette 1 drp OU Q4H WHILE AWAKE Qty: 30 0RF Label Comments: pt states meds come in blister pack labeled daily by [employer] and she takes them but doesn't know the names pantoprazole 40 mg Tablet,Delayed Release (Dr/Ec) 40 mg PO BID@729,1999 Qty: 60 0RF Label Comments: pt states meds come in blister pack labeled daily by [employer] and she takes them but doesn't know the names ondansetron 4 mg tablet,disintegrating 4 mg PO TID PRN (Reason: nausea and vomiting) Qty: 6 0RF ondansetron 4 mg tablet,disintegrating 4 mg PO Q8H PRN (Reason: nausea and vomiting) Qty: 10 0RF cefpodoxime 100 mg tablet 100 mg PO BID 7 Days Qty: 14 0RF Label Comments: pt states meds come in blister pack labeled daily by [employer] and she takes them but doesn't know the names Rx Instructions: must administer with a meal/food Discharge Instructions Activity:: Activity as Tolerated Remove Dressings/Wound Care:: 24 hours Shower/Bathe:: 24 hours Diet:: As Tolerated Discharge Orders Discharge Orders: Discharge Order (Routine); Ordered 09/15/22 Ordered By: Angelito Noble DS: Diagnosis Discharge Diagnosis (1) Cirrhosis of liver with ascites: Status: Acute Asessment and Plan: Leticia, we were able to drain 2300 mL of ascites from your abdomen today. I hope this relieves some of your abdominal pain. Please call the office tomorrow to try to schedule another paracentesis in approximately 2 weeks.
[2022-09-16 12:42] VITALS: BP 148/92; PULSE 109; RESP 19; TEMP 36.7; O2SAT 97
[2022-09-16] MEDS: Normal Saline Flush 10 ML SYR IV (13:55)
[2022-09-16] MEDS: MORPHine 4 MG/ML SYR 2 MG IVP (14:00)
[2022-09-16 15:00] VITALS: BP 154/80; PULSE 97; RESP 20; TEMP 36.7; O2SAT 97
[2022-09-16 15:30] VITALS: BP 168/84; PULSE 97; RESP 20; TEMP 36.6; O2SAT 94
== END 2022-09-16 16:25 | disposition home or self-care (01) ==
PROVIDERS: PCP Family Medicine; Visit Provider Surgery
PROC: 0W9G3ZZ Drainage of Peritoneal Cavity, Percutaneous Approach (ICD-10-PCS; CPT 49082; principal; 2022-09-16 13:45)
DX: K74.60 Unspecified cirrhosis of liver (principal); R18.8 Other ascites
CPT/HCPCS: 49082; J2270

== ENCOUNTER 2022-09-24 16:57 | Emergency (ER) | payer MEDICARE, SELFPAY ==
[2022-09-24] VITALS (11 sets, daily range): BP systolic 116–144; BP diastolic 53–88; PULSE 86–91; RESP 0–28; TEMP 36.7; O2SAT 95
--- NOTE | 2022-09-24 17:00 | RT.EKG_ITS ---
APPROVED REPORT Exam: Resting ECG Reason for Exam: chest pain Patient Location: E HR:86 bpm ECG Measurements Heart Rate 86 AXIS ND 193 P 40 QRSd 90 QRS -29 QT 401 T -1 QTc 479 Conclusion Sinus rhythm...normal P axis, V-rate 60- 99 Low voltage, precordial leads...precordial leads <1.0mV Physician: no stemi
--- NOTE | 2022-09-24 17:17 | W.ED.GENAD ---
Discharge Plan Discharge Details Chief Complaint: Abd Prob Primary Care Provider: Lvaelle Galindo ED Provider: Gloria Alvarez Home Meds and New Rx's Prescriptions: No Action Xiidra 5 % dropperette 1 drp ophthalmic (eye) BID Rx Instructions: administer approximately 12 hours apart budesonide [Pulmicort] 0.5 mg/2 mL suspension for nebulization 0.5 mg inhalation DAILY Qty: 60 5RF Label Comments: pt states meds come in blister pack labeled daily by [employer] and she takes them but doesn't know the names furosemide 20 mg tablet See Rx Instructions PO BID Qty: 180 3RF Label Comments: pt states meds come in blister pack labeled daily by [employer] and she takes them but doesn't know the names Rx Instructions: orally twice a day; 3 tabs (60mg) in AM and 2 tabs(40mg in afternoon; ipratropium-albuterol 0.5 mg-3 mg(2.5 mg base)/3 mL solution for nebulization 3 ml inhalation Q6H PRN Label Comments: pt states meds come in blister pack labeled daily by [employer] and she takes them but doesn't know the names Myrbetriq 50 mg tablet extended release 24 hr 50 mg PO DAILY Qty: 30 12RF lorazepam 1 mg tablet 0.5 - 1 mg PO QHS PRN (Reason: sleep) Qty: 20 0RF Label Comments: pt states meds come in blister pack labeled daily by [employer] and she takes them but doesn't know the names albuterol sulfate [Ventolin HFA] 90 mcg/actuation HFA aerosol inhaler 2 puff inhalation QID PRN (Reason: shortness of breath or wheezing) Qty: 8.5 1RF amlodipine 10 mg tablet 10 mg PO DAILY Qty: 90 3RF Label Comments: pt states meds come in blister pack labeled daily by [employer] and she takes them but doesn't know the names buspirone 5 mg tablet 5 mg PO BID Qty: 60 5RF Label Comments: pt states meds come in blister pack labeled daily by [employer] and she takes them but doesn't know the names folic acid 1 mg tablet 1 mg PO DAILY Qty: 90 3RF Label Comments: pt states meds come in blister pack labeled daily by [employer] and she takes them but doesn't know the names melatonin 3 mg capsule 6 mg PO HS Qty: 180 3RF Label Comments: pt states meds come in blister pack labeled daily by [employer] and she takes them but doesn't know the names metoprolol tartrate 50 mg tablet 50 mg PO DAILY Qty: 90 3RF Label Comments: pt states meds come in blister pack labeled daily by [employer] and she takes them but doesn't know the names mirtazapine 7.5 mg tablet 7.5 mg PO QHS Qty: 90 4RF Label Comments: pt states meds come in blister pack labeled daily by [employer] and she takes them but doesn't know the names sucralfate 1 gram tablet 1 g PO BID Qty: 60 11RF Label Comments: pt states meds come in blister pack labeled daily by [employer] and she takes them but doesn't know the names thiamine HCl (vitamin B1) 100 mg tablet 100 mg PO DAILY Qty: 90 3RF Label Comments: pt states meds come in blister pack labeled daily by [employer] and she takes them but doesn't know the names valacyclovir [Valtrex] 500 mg tablet 500 mg PO DAILY Qty: 90 3RF Label Comments: pt states meds come in blister pack labeled daily by [employer] and she takes them but doesn't know the names Rx Instructions: Take 500 mg BID for 3 days, then take daily fluticasone propionate 50 mcg/actuation spray,suspension 2 spray NS daily prn Qty: 16 5RF Label Comments: pt states meds come in blister pack labeled daily by [employer] and she takes them but doesn't know the names cyanocobalamin (vitamin B-12) [Vitamin B-12] 500 mcg tablet 1,000 mcg PO DAILY Qty: 180 3RF Label Comments: pt states meds come in blister pack labeled daily by [employer] and she takes them but doesn't know the names ferrous sulfate 325 mg (65 mg iron) tablet 325 mg PO BID Qty: 180 3RF Label Comments: pt states meds come in blister pack labeled daily by [employer] and she takes them but doesn't know the names Rx Instructions: do not take within 2 hours of antibiotics multivitamin [Multiple Vitamins] Tablet 1 tab PO DAILY Qty: 90 3RF Label Comments: pt states meds come in blister pack labeled daily by [employer] and she takes them but doesn't know the names quetiapine 25 mg tablet See Rx Instructions PO BID Qty: 60 5RF Label Comments: pt states meds come in blister pack labeled daily by [employer] and she takes them but doesn't know the names Rx Instructions: 0.5 tab PO twice a day; spironolactone [Aldactone] 50 mg tablet 50 mg PO BID Qty: 180 3RF Label Comments: pt states meds come in blister pack labeled daily by [employer] and she takes them but doesn't know the names venlafaxine 75 mg capsule,extended release 24hr 75 mg PO DAILY Qty: 90 3RF Hold Instructions: Home Medication placed on hold at Doctor's office Label Comments: pt states meds come in blister pack labeled daily by [employer] and she takes them but doesn't know the names. aspirin 81 mg tablet,delayed release (DR/EC) 81 mg PO DAILY Qty: 90 3RF Label Comments: pt states meds come in blister pack labeled daily by [employer] and she takes them but doesn't know the names ondansetron 4 mg tablet,disintegrating 4 mg PO Q8H PRN (Reason: nausea and vomiting) Qty: 20 2RF carboxymethylcellulose sodium [Refresh Plus] 0.5 % Dropperette 1 drp OU Q4H WHILE AWAKE Qty: 30 0RF Label Comments: pt states meds come in blister pack labeled daily by [employer] and she takes them but doesn't know the names pantoprazole 40 mg Tablet,Delayed Release (Dr/Ec) 40 mg PO BID@ Qty: 60 0RF Label Comments: pt states meds come in blister pack labeled daily by [employer] and she takes them but doesn't know the names ondansetron 4 mg tablet,disintegrating 4 mg PO TID PRN (Reason: nausea and vomiting) Qty: 6 0RF ondansetron 4 mg tablet,disintegrating 4 mg PO Q8H PRN (Reason: nausea and vomiting) Qty: 10 0RF Discharge Data Discharge Date/Time-TO BE ENTERED AT DEPARTURE: 09/24/22 18:41 Medical Decision Making 77-year-old female with a past medical history of hyperlipidemia, hypertension, cirrhosis of liver with ascites, hypokalemia, insomnia, chronic alcoholism, GI bleed, palliative care patient, presents to the ER with chief complaint of upper abdominal pain and leaking fluid after having a procedure last . She reports that she has had pain since the procedure, nausea vomiting. Work-up ordered including CBC CMP liver panel, lipase, PT PTT INR ethyl alcohol. 181: Informed by staff counselor that patient is requesting to leave will sign AMA form. Patient requesting to leave AMA. Discussed risks and benefits with patient. Patient verbalizes understanding of situation and the risks of leaving including worsening condition, developing disability, including but not limited to . Discussed results of labs and imaging, if they were performed and recommendations for further treatment and/or observation. The patient verbalizes understanding of the results discussed. At this time patient has opted to leave against medical advice. Patient is alert and oriented and has the capacity to make own decisions. Patient left prior to complete work-up being complete, labs are largely at baseline, Labs are within normal limits, patient did write on the ama form that she was screamed at and yelled at, this was not witnessed by me. Patient placed on care management list to follow-up with general surgery for an additional paracentesis. Records reviewed and patient was given discharge instructions on the and instructed to follow-up within 2 weeks for an additional paracentesis. This text was generated using [employer] dictation system, please disregard any oddities of phrase or misspellings. Medical Records Medical records reviewed: Yes I reviewed the patient's medical records. Lab Data Lab results reviewed: Yes I reviewed the patient's lab results. Labs: Laboratory Tests Range/Units 09/24/22 09/24/22 09/24/22 17:30 17:30 17:30 WBC (4.4-10.8) 10^3/uL 3.17 L RBC (3.93-5.22) 10^6/uL 3.24 L Hgb (11.2-15.7) g/dL 10.9 L Hct (36.0-46.0) % 33.7 L MCV (80-95) fL 104 H MCH (27.0-33.0) pg 33.6 H MCHC (32.0-36.0) % 32.3 RDW (11.7-14.6) % 15.2 H Plt Count (130-400) 10^3/uL 130 MPV (8.0-11.0) fL 9.0 Immature Gran % 0.3 Neutrophils % 51.1 Lymphocytes % 40.4 Monocytes % 7.3 Eosinophils % 0.0 Basophils % 0.9 Nucleated RBC % (0.0-0.3) % 0.0 Absolute Neutrophils (1.2-6.7) 10^3/uL 1.62 Absolute Lymphocytes (1.2-3.4) 10^3/uL 1.28 Absolute Monocytes (0.1-0.8) 10^3/uL 0.23 Absolute Eosinophils (0.0-0.7) 10^3/uL 0.00 Absolute Basophils (0.0-0.2) 10^3/uL 0.03 PT (9.3-11.0) sec INR (0.9-1.1) APTT (21.0-27.5) sec Sodium (136-145) mmol/L 144 Potassium (3.5-5.1) mmol/L 3.6 Chloride (98-107) mmol/L 109 H Carbon Dioxide (21.0-32.0) mmol/L 27.9 Anion Gap (3-11) mmol/L 7.1 BUN (7-18) mg/dL 14 Creatinine (0.55-1.02) mg/dL 1.1 H Est GFR (CKD-EPI 2020) (mL/min/1.73m2) 52.08 Glucose (74-106) mg/dL 105 Calcium (8.5-10.1) mg/dL 8.6 Magnesium (1.8-2.4) mg/dL 1.6 L Total Bilirubin (0.2-1.0) mg/dL 0.5 Conjugated Bilirubin (0.0-0.2) mg/dL 0.2 AST (15-37) U/L 40 H ALT (14-59) U/L 21 Alkaline Phosphatase (46-116) U/L 123 H Troponin I (<or=60) ng/L < 50 Total Protein (6.4-8.2) g/dL 5.2 L Albumin (3.4-5.0) g/dL 2.5 L Lipase (73-393) U/L 31 Ethyl Alcohol (<10) mg/dL 201.0 H Range/Units 09/24/22 17:30 WBC (4.4-10.8) 10^3/uL RBC (3.93-5.22) 10^6/uL Hgb (11.2-15.7) g/dL Hct (36.0-46.0) % MCV (80-95) fL MCH (27.0-33.0) pg MCHC (32.0-36.0) % RDW (11.7-14.6) % Plt Count (130-400) 10^3/uL MPV (8.0-11.0) fL Immature Gran % Neutrophils % Lymphocytes % Monocytes % Eosinophils % Basophils % Nucleated RBC % (0.0-0.3) % Absolute Neutrophils (1.2-6.7) 10^3/uL Absolute Lymphocytes (1.2-3.4) 10^3/uL Absolute Monocytes (0.1-0.8) 10^3/uL Absolute Eosinophils (0.0-0.7) 10^3/uL Absolute Basophils (0.0-0.2) 10^3/uL PT (9.3-11.0) sec 10.6 INR (0.9-1.1) 1.1 APTT (21.0-27.5) sec 22.5 Sodium (136-145) mmol/L Potassium (3.5-5.1) mmol/L Chloride (98-107) mmol/L Carbon Dioxide (21.0-32.0) mmol/L Anion Gap (3-11) mmol/L BUN (7-18) mg/dL Creatinine (0.55-1.02) mg/dL Est GFR (CKD-EPI 2020) (mL/min/1.73m2) Glucose (74-106) mg/dL Calcium (8.5-10.1) mg/dL Magnesium (1.8-2.4) mg/dL Total Bilirubin (0.2-1.0) mg/dL Conjugated Bilirubin (0.0-0.2) mg/dL AST (15-37) U/L ALT (14-59) U/L Alkaline Phosphatase (46-116) U/L Troponin I (<or=60) ng/L Total Protein (6.4-8.2) g/dL Albumin (3.4-5.0) g/dL Lipase (73-393) U/L Ethyl Alcohol (<10) mg/dL HPI General Mode of arrival: EMS. Date/Time Provider Initiated Documentation: 09/24/22 17:17. Limitations to Documentation: no limitations. Information obtained by: patient, EMS and old records reviewed. HPI Narrative: 77-year-old female with a past medical history of hyperlipidemia, hypertension, cirrhosis of liver with ascites, hypokalemia, insomnia, chronic alcoholism, GI bleed, palliative care patient, presents to the ER with chief complaint of upper abdominal pain and leaking fluid after having a procedure last . She reports that she has had pain since the procedure, nausea vomiting. On medical record review she did have a paracentesis on September 15 and had 2200 mils of fluid drained at that time. She reports per EMS that she has not had any alcoholic drink since yesterday. Hemodynamically stable upon arrival O2 sat 95% on room air. No tremors noted. Patient is alert and orient x4. Related Data Home Medications Medication Instructions Recorded Confirmed carboxymethylcellulose sodium 0.5 1 drp OU Q4H WHILE AWAKE #30 ea 06/20/19 09/16/22 % eye drops in a dropperette (Refresh Plus) lifitegrast 5 % eye drops in a 1 drp ophthalmic (eye) BID 08/05/20 09/16/22 dropperette (Xiidra) ipratropium 0.5 mg-albuterol 3 mg 3 ml inhalation Q6H PRN 12/25/21 09/16/22 (2.5 mg base)/3 mL nebulization soln albuterol sulfate 90 mcg/actuation 2 puff inhalation QID PRN 02/08/22 09/16/22 aerosol inhaler (Ventolin HFA) shortness of breath or wheezing #8.5 grams amlodipine 10 mg tablet 10 mg PO DAILY #90 tabs 02/08/22 09/16/22 buspirone 5 mg tablet 5 mg PO BID #60 tabs 02/08/22 09/16/22 folic acid 1 mg tablet 1 mg PO DAILY #90 tabs 02/08/22 09/16/22 melatonin 3 mg capsule 6 mg PO HS #180 caps 02/08/22 09/16/22 metoprolol tartrate 50 mg tablet 50 mg PO DAILY #90 tabs 02/08/22 09/16/22 mirtazapine 7.5 mg tablet 7.5 mg PO QHS #90 tabs 02/08/22 09/16/22 sucralfate 1 gram tablet 1 g PO BID #60 tabs 02/08/22 09/16/22 thiamine HCl (vitamin B1) 100 mg 100 mg PO DAILY #90 tabs 02/08/22 09/16/22 tablet valacyclovir 500 mg tablet 500 mg PO DAILY #90 tabs 02/08/22 09/16/22 (Valtrex) fluticasone propionate 50 2 spray NS daily prn #16 grams 03/06/22 09/16/22 mcg/actuation nasal spray,suspension budesonide 0.5 mg/2 mL suspension 0.5 mg (2 mL) inhalation DAILY #60 05/06/22 09/16/22 for nebulization (Pulmicort) mL pantoprazole 40 mg tablet,delayed 40 mg PO BID@0730,1999 #60 tabs 05/21/22 09/16/22 release cyanocobalamin (vitamin B-12) 500 1,000 mcg PO DAILY #180 tabs 07/10/22 09/16/22 mcg tablet (Vitamin B-12) ferrous sulfate 325 mg (65 mg 325 mg PO BID #180 tabs 07/10/22 09/16/22 iron) tablet multivitamin (Multiple Vitamins 1 tab PO DAILY #90 tabs 07/10/22 09/16/22 tablet) quetiapine 25 mg tablet See Rx Instructions PO BID #60 tabs 07/10/22 09/16/22 spironolactone 50 mg tablet 50 mg PO BID #180 tabs 07/10/22 09/16/22 (Aldactone) venlafaxine 75 mg capsule,extended 75 mg PO DAILY #90 caps 07/10/22 09/16/22 release 24 hr mirabegron 50 mg tablet,extended 50 mg PO DAILY #30 tabs 07/20/22 09/16/22 release 24 hr (Myrbetriq) aspirin 81 mg tablet,delayed 81 mg PO DAILY #90 tabs 08/05/22 09/16/22 release furosemide 20 mg tablet See Rx Instructions PO BID #180 08/11/22 09/16/22 tabs ondansetron 4 mg disintegrating 4 mg PO Q8H PRN nausea and 08/17/22 09/16/22 tablet vomiting #20 tabs ondansetron 4 mg disintegrating 4 mg PO TID PRN nausea and 08/24/22 09/16/22 tablet vomiting #6 tabs ondansetron 4 mg disintegrating 4 mg PO Q8H PRN nausea and 09/03/22 09/16/22 tablet vomiting #10 tabs lorazepam 1 mg tablet 0.5 - 1 mg PO QHS PRN sleep #20 09/14/22 09/24/22 tabs Previous Rx's Medication Instructions Recorded carboxymethylcellulose sodium 0.5 1 drp OU Q4H WHILE AWAKE #30 ea 06/20/19 % eye drops in a dropperette (Refresh Plus) albuterol sulfate 90 mcg/actuation 2 puff inhalation QID PRN 02/08/22 aerosol inhaler (Ventolin HFA) shortness of breath or wheezing #8.5 grams amlodipine 10 mg tablet 10 mg PO DAILY #90 tabs 02/08/22 buspirone 5 mg tablet 5 mg PO BID #60 tabs 02/08/22 folic acid 1 mg tablet 1 mg PO DAILY #90 tabs 02/08/22 melatonin 3 mg capsule 6 mg PO HS #180 caps 02/08/22 metoprolol tartrate 50 mg tablet 50 mg PO DAILY #90 tabs 02/08/22 mirtazapine 7.5 mg tablet 7.5 mg PO QHS #90 tabs 02/08/22 sucralfate 1 gram tablet 1 g PO BID #60 tabs 02/08/22 thiamine HCl (vitamin B1) 100 mg 100 mg PO DAILY #90 tabs 02/08/22 tablet valacyclovir 500 mg tablet 500 mg PO DAILY #90 tabs 02/08/22 (Valtrex) fluticasone propionate 50 2 spray NS daily prn #16 grams 03/06/22 mcg/actuation nasal spray,suspension budesonide 0.5 mg/2 mL suspension 0.5 mg (2 mL) inhalation DAILY #60 05/06/22 for nebulization (Pulmicort) mL pantoprazole 40 mg tablet,delayed 40 mg PO BID@07 #60 tabs 05/21/22 release cyanocobalamin (vitamin B-12) 500 1,000 mcg PO DAILY #180 tabs 07/10/22 mcg tablet (Vitamin B-12) ferrous sulfate 325 mg (65 mg 325 mg PO BID #180 tabs 07/10/22 iron) tablet multivitamin (Multiple Vitamins 1 tab PO DAILY #90 tabs 07/10/22 tablet) quetiapine 25 mg tablet See Rx Instructions PO BID #60 tabs 07/10/22 spironolactone 50 mg tablet 50 mg PO BID #180 tabs 07/10/22 (Aldactone) venlafaxine 75 mg capsule,extended 75 mg PO DAILY #90 caps 07/10/22 release 24 hr mirabegron 50 mg tablet,extended 50 mg PO DAILY #30 tabs 07/20/22 release 24 hr (Myrbetriq) aspirin 81 mg tablet,delayed 81 mg PO DAILY #90 tabs 08/05/22 release furosemide 20 mg tablet See Rx Instructions PO BID #180 08/11/22 tabs ondansetron 4 mg disintegrating 4 mg PO Q8H PRN nausea and 08/17/22 tablet vomiting #20 tabs ondansetron 4 mg disintegrating 4 mg PO TID PRN nausea and 08/24/22 tablet vomiting #6 tabs ondansetron 4 mg disintegrating 4 mg PO Q8H PRN nausea and 09/03/22 tablet vomiting #10 tabs lorazepam 1 mg tablet 0.5 - 1 mg PO QHS PRN sleep #20 09/14/22 tabs Allergies Allergy/AdvReac Type Severity Reaction Status Date / Time Penicillins Allergy Mild Rash Verified 09/14/22 10:36 ramipril Allergy Unknown ITCHING Verified 09/14/22 10:36 meperidine [From Demerol] AdvReac Severe Nausea Verified 09/14/22 10:36 bupropion AdvReac Mild GI upset Verified 09/14/22 10:36 AMBER Inhibitors AdvReac Unknown COUGH Verified 09/14/22 10:36 alendronate sodium AdvReac Unknown GI Distress Verified 09/14/22 10:36 clarithromycin AdvReac Unknown intolerant Verified 09/14/22 10:36 paroxetine AdvReac Unknown Diarrhea Verified 09/14/22 10:36 General Stated Complaint: Abd Prob JORDAN: 3 Review of Systems All systems reviewed & are unremarkable except as noted in HPI and below Cardiovascular Cardiovascular: Reports chest pain (Bilateral rib cage pain) and Denies dyspnea Respiratory Respiratory: Denies cough and Denies dyspnea Gastrointestinal Gastrointestinal: Reports as per HPI and Reports abdominal pain [facility] All Active Problems Insomnia (Acute) Hypokalemia (Acute) Nausea and vomiting (Acute) Nausea (Acute) Acute UTI (Acute) Thrombocytopenia (Chronic) Elevated bilirubin (Acute) Mixed stress and urge urinary incontinence (Acute) Thyroid nodule (Acute) Anxiety (Chronic) Adverse effect of metronidazole (Acute) Medication monitoring encounter (Acute) Advance care planning (Acute) Cirrhosis of liver with ascites (Acute) Animal bite of right hand with infection (Acute) Umbilical hernia (Acute) 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 ascites (Acute) Hyperbilirubinemia (Acute) Shortness of breath (Acute) Elevated blood pressure reading without diagnosis of hypertension (Acute) Left arm pain (Acute) Ambulatory dysfunction (Acute) Incontinence (Acute) Urge incontinence (Acute) Anorexia (Acute) Headache (Acute) Onychomycosis (Acute) Depression (Chronic) Chest pain (Acute) Foot pain, right (Acute) Tendinitis of left rotator cuff (Acute) Macrocytosis (Acute 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 Leukopenia (Acute) Headache (Acute) Epigastric abdominal pain (Acute) Calcific tendinitis of left shoulder (Acute) Pulmonary mass (Acute) spiculated mass Pneumonia (Acute) Depression with suicidal ideation (Acute) Alcohol abuse (Chronic) Diarrhea (Acute) Epigastric pain (Acute) Dehydration (Acute) Hypokalemia (Acute) Discharge planning issues (Acute) Palliative care patient (Acute) Difficult intravenous access (Acute) Multiple IV attempts, usually requires ultrasound placement. PTSD (post-traumatic stress disorder) (Acute) Anemia (Chronic) Depression (Chronic) Foot pain, right (Acute) T12 compression fracture (Acute) Presacral mass (Chronic) Deviated nasal septum (Acute) Frequent falls (Chronic) Head injury (Acute) Ambulatory dysfunction (Chronic) Shoulder pain, right (Chronic) Suicidal ideation (Acute) Dry eye (Acute) Pruritus (Acute) Dystrophic nail (Acute) AMBER (acute kidney injury) (Acute) Iron deficiency anemia (Chronic) Alcohol abuse (Chronic) Fall (Acute) Atelectasis of left lung (Chronic) Advance directive on file (Acute) Nodule of upper lobe of right lung (Acute ~09/13/18) 09/13/18 [facility]; 12mm SPICULATED -kb Cataract (Chronic 11/07/15) Hypertension (Chronic) high today; she will check readings at home Hyperlipidemia (Chronic) Back pain, chronic (Chronic) Depression (Chronic) Osteopenia (Chronic) Medical History Adjustment disorder with depressed mood Alcoholic ketosis Anemia Cervical radicular pain neck pain and [facility] 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) pls refrain from alcohol Chronic alcoholism she will not stop drinking unless she checks with me, so that we can help her avert withdrawal I do not think she is capable on her own--she would need placement to achieve required goal of 3 months of sobriety Chronic diarrhea Closed right humeral fracture Corneal ulcer, right (~08/23/18) 08/23/18; [facility]- Fracture of humerus, left, closed Genital herpes simplex recurrent gential; suppressive Valtrex GERD (gastroesophageal reflux disease) GI bleed (12/20/16) Hypertension Hypokalemia Hypomagnesemia Incidental lung nodule, greater than or equal to 8mm 1cm, spiculated, stable for many years, recommend f/u in 6 mo Multiple rib fractures 03/11/19 [facility] Non-cardiac chest pain (09/21/16) [facility] 09/21/16 NEGATIVE MP Osteoarthritis Palliative care patient (03/21/17) Pancreatitis, alcoholic, acute Peripheral edema Photophobia of right eye Pleural effusion on left 03/11/19 [facility] Presacral mass (~09/15/18) 09/15/18 [facility] Sciatica right, epidural injuections [facility] Tubular adenoma of colon (01/28/17) Urinary incontinence 01/24/13 urethral suspension and sling at [facility] (bladder suspension 1991) 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 Bladder repair. Repair bladder injury, simple Family History Mother No problems noted. Father , DROWNED at age 50. No problems noted. Sister Personal history of malignant neoplasm MELANOMA Sister No problems noted. Grandfather Personal history of malignant neoplasm STOMACH Grandfather Personal history of malignant neoplasm PROSTATE Grandmother Heart disease AL Acute ill-defined cerebrovascular disease Grandmother Personal history of malignant neoplasm UTERINE Aunt , AL Heart disease AL Aunt , AL Heart disease Brother No problems noted. Social History Smoking/Tobacco Use Status: Former Tobacco Use Quit Date: 08/05/20 Smoking risk assessment performed?: Yes Alcohol Intake: current Alcohol Intake frequency: 3 or more drinks per day Alcohol type: hard liquor Drug use: Never Substance use type: does not use Details: Last alcoholic drink Mike [employer], 2 days ago Current gender identity: female Do you feel safe at home: Yes Do you feel safe in your relationship?: Yes Exam Narrative Exam Narrative: Constitutional: Alert and oriented x3. Appears stated age. Normal body habitus. Head: Normocephalic, no trauma. Eyes: Pupils PERRL, Red reflex noted, EOM's intact. Eyelids symmetrical without lesions, discharge, or swelling. ENT: Bilateral TM's WNL, External ear normal to inspection, no mastoid TTP, swelling, or erythema, Nasal turbinates WNL, no nasal discharge. Normal dentition, Posterior pharynx WNL, no exudate. Chest: RRR, Normal S1, S2, distal pulses intact. Resp: Lungs clear to auscultation bilaterally, no wheezes, rales, or rhonchi. Abdomen: Soft, mildly distended, Normoactive bowel sounds all 4 quads. Ecchymosis noted to the right lower quadrant, there is a small lesion in the mid abdomen no leaking fluid. Positive fluid wave. Musculoskeletal: Unable to assess gait, 5/5 strength to all four extremities. Skin: No suspicious rashes or lesions. Capillary refill less than 2 sec. Neurologic: Cranial nerves II-XII intact. Alert and oriented x 3. Motor: No deficits noted. Sensory: Intact bilaterally all 4 extremities. Hematologic/Lymphatic: No ecchymosis, no lymphadenopathy. Course Vital Signs Vital signs: Vital Signs Temperature 36.7 C 09/24/22 17:05 Pulse 87 09/24/22 17:05 Respiratory Rate 20 09/24/22 17:05 Blood Pressure 144/88 H 09/24/22 17:05 Pulse Oximetry 95 09/24/22 17:05 Temperature 36.7 C 09/24/22 17:05 Temperature Source Tympanic 09/24/22 17:05 Pulse 87 09/24/22 17:05 Respiratory Rate 20 09/24/22 17:05 Respiratory Effort 09/24/22 17:14 Blood Pressure 144/88 H 09/24/22 17:05 Blood Pressure Position Supine 09/24/22 17:05 Pulse Oximetry 95 09/24/22 17:05 Oxygen Delivery Method Room Air 09/24/22 17:05 Oxygen Flow Rate 0 09/24/22 17:05 Pain Level 6 09/24/22 17:09 PAWSS Have you Been Recently Intoxicated or Drunk Within the Last 30 days?: Yes Have you Ever Experienced Previous Episodes of Alcohol Withdrawal?: Yes Have you ever Experienced Withdrawal Seizures?: No Have you ever Experienced Delirium Tremens(DT)s?: No Have you ever undergone Alcohol Rehabilitation Treatment (i.e, inpt ot outpatient treatment programs)?: Yes Have you ever Experienced Blackouts?: No Have you ever Combined Alcohol with other Downers within the last 90 days?: No Have you ever Combined Alcohol with any other Substance of Abuse during the last 90 days?: Yes Positive Blood Alcohol level on Presentation? [PCS.BAL]: No Evidence of Increased Autonomic Activity (i.e. HR>120, tremor, sweating, agitation, nausea)?: No Result: 5
[2022-09-24 17:49] LABS: Abs Immature Grans 0.01 10^3/uL (0.0-0.06); Absolute Basophil Count 0.03 10^3/uL (0.0-0.2); Absolute Lymphocyte Count 1.28 10^3/uL (1.2-3.4); Absolute Monocyte Count 0.23 10^3/uL (0.1-0.8); Absolute Neutrophil Count 1.62 10^3/uL (1.2-6.7); Basophils % 0.9; HCT 33.7 % (36.0-46.0); HGB 10.9 g/dL (11.2-15.7); Immature Grans % 0.3; Lymphocytes % 40.4; MCH 33.6 pg (27.0-33.0); MCHC 32.3 % (32.0-36.0); MCV 104 fL (80-95); Monocytes % 7.3; Neutrophils % 51.1; Platelet Count 130 10^3/uL (130-400); RBC 3.24 10^6/uL (3.93-5.22); RDW 15.2 % (11.7-14.6); RDW-SD 58.6 fL; WBC 3.17 10^3/uL (4.4-10.8)
[2022-09-24 18:03] LABS: INR 1.1 (0.9-1.1); PTT Activated 22.5 sec (21.0-27.5); Prothrombin Time 10.6 sec (9.3-11.0)
[2022-09-24 18:20] LABS: ALT 21 U/L (14-59); AST 40 U/L (15-37); Albumin 2.5 g/dL (3.4-5.0); Alkaline Phosphatase 123 U/L (46-116); Anion Gap 7.1 mmol/L (3-11); BUN 14 mg/dL (7-18); Bilirubin, Direct 0.2 mg/dL (0.0-0.2); Bilirubin, Total 0.5 mg/dL (0.2-1.0); CO2 27.9 mmol/L (21.0-32.0); CREATININE 1.1 mg/dL (0.55-1.02); Calcium 8.6 mg/dL (8.5-10.1); Chloride 109 mmol/L (98-107); Estimated GFR 52.08 (mL/min/1.73m2); Glucose 105 mg/dL (74-106); Lipase 31 U/L (73-393); Magnesium 1.6 mg/dL (1.8-2.4); Potassium 3.6 mmol/L (3.5-5.1); Sodium 144 mmol/L (136-145); Total Protein 5.2 g/dL (6.4-8.2); Troponin I < 50 ng/L (<or=60)
--- NOTE | 2022-09-24 20:42 | NUR.NOTE ---
Refferral sent ton [facility] General Surgery to follow up for Hx of Cirrhosis needs paracentesis for 3-5 daysNursing Note:
== END 2022-09-24 18:41 ==
LOC: ER 17:16
PROVIDERS: Emergency Provider Registered Nurse Emergency; PCP Family Medicine
DX: Z53.29 Procedure and treatment not carried out because of patient's decision for other reasons (principal); R10.10 Upper abdominal pain, unspecified; R11.2 Nausea with vomiting, unspecified; K74.60 Unspecified cirrhosis of liver; R07.9 Chest pain, unspecified; Z79.899 Other long term (current) drug therapy
CPT/HCPCS: 80053; 80076; 83690; 93005; 99283; 80320; 83735; 84484; 85025; 85610; 85730; 93010

== ENCOUNTER 2022-09-28 09:16 | Day surgery (SDC) | payer MEDICARE, SELFPAY ==
--- NOTE | 2022-09-27 20:46 | PDOC.DSDIS_ITS ---
Date of service: 09/28/22 Time of Service: 11:22 Discharge Plan Disposition Patient Disposition: Home Condition: Fair Discharge Details Reason For Visit: PARACENTESIS Attending Provider: Angelito Noble Primary Care Provider: Lavelle Galindo Home Meds and New Rx's Prescriptions: Continued Xiidra 5 % dropperette 1 drp ophthalmic (eye) BID Rx Instructions: administer approximately 12 hours apart budesonide [Pulmicort] 0.5 mg/2 mL suspension for nebulization 0.5 mg inhalation DAILY Qty: 60 5RF Label Comments: pt states meds come in blister pack labeled daily by [employer] and she takes them but doesn't know the names furosemide 20 mg tablet See Rx Instructions PO BID Qty: 180 3RF Label Comments: pt states meds come in blister pack labeled daily by [employer] and she takes them but doesn't know the names Rx Instructions: orally twice a day; 3 tabs (60mg) in AM and 2 tabs(40mg in afternoon; ipratropium-albuterol 0.5 mg-3 mg(2.5 mg base)/3 mL solution for nebulization 3 ml inhalation Q6H PRN Label Comments: pt states meds come in blister pack labeled daily by [employer] and she takes them but doesn't know the names Myrbetriq 50 mg tablet extended release 24 hr 50 mg PO DAILY Qty: 30 12RF lorazepam 1 mg tablet 0.5 - 1 mg PO QHS PRN (Reason: sleep) Qty: 20 0RF Label Comments: pt states meds come in blister pack labeled daily by [employer] and she takes them but doesn't know the names albuterol sulfate [Ventolin HFA] 90 mcg/actuation HFA aerosol inhaler 2 puff inhalation QID PRN (Reason: shortness of breath or wheezing) Qty: 8.5 1RF amlodipine 10 mg tablet 10 mg PO DAILY Qty: 90 3RF Label Comments: pt states meds come in blister pack labeled daily by [employer] and she takes them but doesn't know the names buspirone 5 mg tablet 5 mg PO BID Qty: 60 5RF Label Comments: pt states meds come in blister pack labeled daily by [employer] and she takes them but doesn't know the names folic acid 1 mg tablet 1 mg PO DAILY Qty: 90 3RF Label Comments: pt states meds come in blister pack labeled daily by [employer] and she takes them but doesn't know the names melatonin 3 mg capsule 6 mg PO HS Qty: 180 3RF Label Comments: pt states meds come in blister pack labeled daily by [employer] and she takes them but doesn't know the names metoprolol tartrate 50 mg tablet 50 mg PO DAILY Qty: 90 3RF Label Comments: pt states meds come in blister pack labeled daily by [employer] and she takes them but doesn't know the names mirtazapine 7.5 mg tablet 7.5 mg PO QHS Qty: 90 4RF Label Comments: pt states meds come in blister pack labeled daily by [employer] and she takes them but doesn't know the names sucralfate 1 gram tablet 1 g PO BID Qty: 60 11RF Label Comments: pt states meds come in blister pack labeled daily by [employer] and she takes them but doesn't know the names thiamine HCl (vitamin B1) 100 mg tablet 100 mg PO DAILY Qty: 90 3RF Label Comments: pt states meds come in blister pack labeled daily by [employer] and she takes them but doesn't know the names valacyclovir [Valtrex] 500 mg tablet 500 mg PO DAILY Qty: 90 3RF Label Comments: pt states meds come in blister pack labeled daily by [employer] and she takes them but doesn't know the names Rx Instructions: Take 500 mg BID for 3 days, then take daily fluticasone propionate 50 mcg/actuation spray,suspension 2 spray NS daily prn Qty: 16 5RF Label Comments: pt states meds come in blister pack labeled daily by [employer] and she takes them but doesn't know the names cyanocobalamin (vitamin B-12) [Vitamin B-12] 500 mcg tablet 1,000 mcg PO DAILY Qty: 180 3RF Label Comments: pt states meds come in blister pack labeled daily by [employer] and she takes them but doesn't know the names ferrous sulfate 325 mg (65 mg iron) tablet 325 mg PO BID Qty: 180 3RF Label Comments: pt states meds come in blister pack labeled daily by [employer] and she takes them but doesn't know the names Rx Instructions: do not take within 2 hours of antibiotics multivitamin [Multiple Vitamins] Tablet 1 tab PO DAILY Qty: 90 3RF Label Comments: pt states meds come in blister pack labeled daily by [employer] and she takes them but doesn't know the names quetiapine 25 mg tablet See Rx Instructions PO BID Qty: 60 5RF Label Comments: pt states meds come in blister pack labeled daily by [employer] and she takes them but doesn't know the names Rx Instructions: 0.5 tab PO twice a day; spironolactone [Aldactone] 50 mg tablet 50 mg PO BID Qty: 180 3RF Label Comments: pt states meds come in blister pack labeled daily by [employer] and she takes them but doesn't know the names venlafaxine 75 mg capsule,extended release 24hr 75 mg PO DAILY Qty: 90 3RF Hold Instructions: Home Medication placed on hold at Doctor's office Label Comments: pt states meds come in blister pack labeled daily by [employer] and she takes them but doesn't know the names. aspirin 81 mg tablet,delayed release (DR/EC) 81 mg PO DAILY Qty: 90 3RF Label Comments: pt states meds come in blister pack labeled daily by [employer] and she takes them but doesn't know the names ondansetron 4 mg tablet,disintegrating 4 mg PO Q8H PRN (Reason: nausea and vomiting) Qty: 20 2RF carboxymethylcellulose sodium [Refresh Plus] 0.5 % Dropperette 1 drp OU Q4H WHILE AWAKE Qty: 30 0RF Label Comments: pt states meds come in blister pack labeled daily by [employer] and she takes them but doesn't know the names pantoprazole 40 mg Tablet,Delayed Release (Dr/Ec) 40 mg PO BID@729,1999 Qty: 60 0RF Label Comments: pt states meds come in blister pack labeled daily by [employer] and she takes them but doesn't know the names ondansetron 4 mg tablet,disintegrating 4 mg PO TID PRN (Reason: nausea and vomiting) Qty: 6 0RF ondansetron 4 mg tablet,disintegrating 4 mg PO Q8H PRN (Reason: nausea and vomiting) Qty: 10 0RF Discharge Instructions Instructions: Paracentesis (GEN) Stand Alone Forms: Press Ganey (DSU) Activity:: Activity as Tolerated Remove Dressings/Wound Care:: 24 hours Shower/Bathe:: 24 hours Diet:: As Tolerated Discharge Orders Discharge Orders: Discharge Order (Routine); Ordered 09/28/22 Ordered By: Angelito Noble DS: Diagnosis Discharge Diagnosis (1) Cirrhosis of liver with ascites: Status: Acute Asessment and Plan: Reassess role and timing of paracentesis if necessary after meeting with palliative care on October 06.
--- NOTE | 2022-09-27 20:48 | ROE_ITS ---
Date of service: 09/28/22 Time of Service: 11:24 Operative Note Operative Note DATE OF PROCEDURE: 09/28/22 PRE-OP DIAGNOSIS: Ascites POST-OP DIAGNOSIS: same PROCEDURE: paracentesis SURGEON: Angelito Noble ANESTHESIA TYPE: Local By Surgeon ESTIMATED BLOOD LOSS: 5 PATHOLOGY: none sent COMPLICATIONS: None Patient was transported to: same day Patient's condition: stable Indications: Julia is a 77-year-old woman with alcoholic cirrhosis and ascites Findings: Minimal ascites Procedure Description: I started by performing a limited ultrasound of the abdomen to identify appropriate site for paracentesis. There was not much fluid in the peritoneal cavity. There was minimal fluid in the left lower quadrant in the pelvis. There was a small pocket of fluid in the right lower quadrant. I then prepped and draped the right lower quadrant of the abdomen. Next, using ultrasound guidance, I anesthetized the skin with 1% lidocaine with epinephrine. I used the ultrasound to guide the needle down to the peritoneal level which was also anesthetized. I then made a small incision in the skin with a 11 blade scalpel. Next, I advanced the 5 [place] paracentesis needle and catheter through the incision and into the peritoneal cavity under the direct vision of the ultrasound. I aspirated straw-colored ascites. Next, I gently advance the catheter and remove the needle. I then attached the large syringe and began aspirating the ascites. Flow was poor. I attempted to reposition her. This did not change the flow of the ascites. Because of the poor flow through the set up, I removed the catheter, and we ultrasounded the area. Again, with real- time direct guidance of the ultrasound, I advanced a new 5 [place] paracentesis needle into that pocket of ascites. Again, I remove the needle leaving the catheter in the pocket. I attempted to hand pump the ascites. I was able to drain approximately 200 mL of ascites. We attempted a few positions to improve drainage, but I was unable to remove any more fluid. Because of her difficulty with ascites draining from the needlestick at the last procedure, I did close this skin site using a 4-0 Monocryl [id number] suture. I applied a Band- Aid.
[2022-09-28 09:39] VITALS: BP 177/94; PULSE 100; RESP 20; TEMP 36.3; O2SAT 96
[2022-09-28] MEDS: Lactated Ringers 1,000 ML 80 ML IV (10:50)
[2022-09-28 11:23] VITALS: BP 156/89; PULSE 87; RESP 18; TEMP 36.7; O2SAT 97
[2022-09-28 12:25] VITALS: BP 163/118; PULSE 109; RESP 20; TEMP 36.4; O2SAT 98
== END 2022-09-28 13:01 | disposition home or self-care (01) ==
PROVIDERS: PCP Family Medicine; Visit Provider Surgery
PROC: 0W9G3ZZ Drainage of Peritoneal Cavity, Percutaneous Approach (ICD-10-PCS; CPT 49082; principal; 2022-09-28 10:30)
DX: K70.31 Alcoholic cirrhosis of liver with ascites (principal)
CPT/HCPCS: 49082

== ENCOUNTER 2022-10-17 12:34 | Observation (INO) | payer MEDICARE, SELFPAY ==
[2022-10-17] VITALS (15 sets, daily range): BP systolic 146–209; BP diastolic 75–123; PULSE 103–135; RESP 14–27; TEMP 36.3–37.9; O2SAT 97–99
--- NOTE | 2022-10-17 12:15 | RT.EKG_ITS ---
APPROVED REPORT Exam: Resting ECG Reason for Exam: Vomiting Patient Location: E HR:125 bpm ECG Measurements Heart Rate 125 AXIS WI 213 P 112 QRSd 75 QRS -30 QT 302 T [id number] QTc 436 Conclusion Sinus tachycardia...rate> 99 Prolonged WI interval...WI >210, V-rate 121-300 Inferior infarct, old...Q >35mS, II III aVF Consider anterior infarct...Q >30mS in V2-V5 Narrow complex sinus tachycardia at a rate of 125 with first-degree AV block and left axis deviation. No signs of LVH based on voltage criteria. T wave inversion in lead III. Low voltage based on [address] st wall leads. ST segment flattening in V2. Low voltage appears persistent compared to prior dated earlier this winter. T wave infection in lead III appears similar to prior. No acute injury pattern . Nonspecific T abnormalities, lateral leads...T <-0.10mV, I aVL V5 V6
--- NOTE | 2022-10-17 12:18 | W.ED.GENAD ---
Discharge Plan Discharge Details Chief Complaint: Nausea/Vomit/Diar Clinical Impression: Hypomagnesemia, Nausea and vomiting, Sinus tachycardia, High anion gap metabolic acidosis, Elevated blood pressure reading with diagnosis of hypertension Primary Care Provider: Lavelle Galindo ED Provider: Clarence Heller [place] Meds and New Rx's Prescriptions: No Action Xiidra 5 % dropperette 1 drp ophthalmic (eye) BID Rx Instructions: administer approximately 12 hours apart budesonide [Pulmicort] 0.5 mg/2 mL suspension for nebulization 0.5 mg inhalation DAILY Qty: 60 5RF Patient Comments: pt states meds come in blister pack labeled daily by [email or web address] and she takes them but doesn't know the names furosemide 20 mg tablet See Rx Instructions PO BID Qty: 180 3RF Patient Comments: pt states meds come in blister pack labeled daily by [employer] and she takes them but doesn't know the names Rx Instructions: orally twice a day; 3 tabs (60mg) in AM and 2 tabs(40mg in afternoon; ipratropium-albuterol 0.5 mg-3 mg(2.5 mg base)/3 mL solution for nebulization 3 ml inhalation Q6H PRN Patient Comments: pt states meds come in blister pack labeled daily by [employer] and she takes them but doesn't know the names Myrbetriq 50 mg tablet extended release 24 hr 50 mg PO DAILY Qty: 30 12RF lorazepam 1 mg tablet 0.5 - 1 mg PO QHS PRN (Reason: sleep) Qty: 20 0RF Patient Comments: pt states meds come in blister pack labeled daily by [employer] and she takes them but doesn't know the names albuterol sulfate [Ventolin HFA] 90 mcg/actuation HFA aerosol inhaler 2 puff inhalation QID PRN (Reason: shortness of breath or wheezing) Qty: 8.5 1RF amlodipine 10 mg tablet 10 mg PO DAILY Qty: 90 3RF Patient Comments: pt states meds come in blister pack labeled daily by [employer] and she takes them but doesn't know the names buspirone 5 mg tablet 5 mg PO BID Qty: 60 5RF Patient Comments: pt states meds come in blister pack labeled daily by [employer] and she takes them but doesn't know the names folic acid 1 mg tablet 1 mg PO DAILY Qty: 90 3RF Patient Comments: pt states meds come in blister pack labeled daily by [employer] and she takes them but doesn't know the names melatonin 3 mg capsule 6 mg PO HS Qty: 180 3RF Patient Comments: pt states meds come in blister pack labeled daily by [employer] and she takes them but doesn't know the names metoprolol tartrate 50 mg tablet 50 mg PO DAILY Qty: 90 3RF Patient Comments: pt states meds come in blister pack labeled daily by [employer] and she takes them but doesn't know the names mirtazapine 7.5 mg tablet 7.5 mg PO QHS Qty: 90 4RF Patient Comments: pt states meds come in blister pack labeled daily by [employer] and she takes them but doesn't know the names sucralfate 1 gram tablet 1 g PO BID Qty: 60 11RF Patient Comments: pt states meds come in blister pack labeled daily by [employer] and she takes them but doesn't know the names thiamine HCl (vitamin B1) 100 mg tablet 100 mg PO DAILY Qty: 90 3RF Patient Comments: pt states meds come in blister pack labeled daily by [employer] and she takes them but doesn't know the names valacyclovir [Valtrex] 500 mg tablet 500 mg PO DAILY Qty: 90 3RF Patient Comments: pt states meds come in blister pack labeled daily by [employer] and she takes them but doesn't know the names Rx Instructions: Take 500 mg BID for 3 days, then take daily fluticasone propionate 50 mcg/actuation spray,suspension 2 spray NS daily prn Qty: 16 5RF Patient Comments: pt states meds come in blister pack labeled daily by [employer] and she takes them but doesn't know the names cyanocobalamin (vitamin B-12) [Vitamin B-12] 500 mcg tablet 1,000 mcg PO DAILY Qty: 180 3RF Patient Comments: pt states meds come in blister pack labeled daily by [employer] and she takes them but doesn't know the names ferrous sulfate 325 mg (65 mg iron) tablet 325 mg PO BID Qty: 180 3RF Patient Comments: pt states meds come in blister pack labeled daily by [employer] and she takes them but doesn't know the names Rx Instructions: do not take within 2 hours of antibiotics multivitamin [Multiple Vitamins] Tablet 1 tab PO DAILY Qty: 90 3RF Patient Comments: pt states meds come in blister pack labeled daily by [employer] and she takes them but doesn't know the names quetiapine 25 mg tablet See Rx Instructions PO BID Qty: 60 5RF Patient Comments: pt states meds come in blister pack labeled daily by [employer] and she takes them but doesn't know the names Rx Instructions: 0.5 tab PO twice a day; spironolactone [Aldactone] 50 mg tablet 50 mg PO BID Qty: 180 3RF Patient Comments: pt states meds come in blister pack labeled daily by [employer] and she takes them but doesn't know the names venlafaxine 75 mg capsule,extended release 24hr 75 mg PO DAILY Qty: 90 3RF Hold Instructions: Home Medication placed on hold at Doctor's office Patient Comments: pt states meds come in blister pack labeled daily by [employer] and she takes them but doesn't know the names. aspirin 81 mg tablet,delayed release (DR/EC) 81 mg PO DAILY Qty: 90 3RF Patient Comments: pt states meds come in blister pack labeled daily by [employer] and she takes them but doesn't know the names ondansetron 4 mg tablet,disintegrating 4 mg PO Q8H PRN (Reason: nausea and vomiting) Qty: 20 2RF carboxymethylcellulose sodium [Refresh Plus] 0.5 % Dropperette 1 drp OU Q4H WHILE AWAKE Qty: 30 0RF Patient Comments: pt states meds come in blister pack labeled daily by [employer] and she takes them but doesn't know the names pantoprazole 40 mg Tablet,Delayed Release (Dr/Ec) 40 mg PO BID@ Qty: 60 0RF Patient Comments: pt states meds come in blister pack labeled daily by [employer] and she takes them but doesn't know the names ondansetron 4 mg tablet,disintegrating 4 mg PO TID PRN (Reason: nausea and vomiting) Qty: 6 0RF ondansetron 4 mg tablet,disintegrating 4 mg PO Q8H PRN (Reason: nausea and vomiting) Qty: 10 0RF Medical Decision Making This is a hypertensive and tachycardic alcoholic in whom I am concerned for possibility of alcohol withdrawal Given that she recently stopped drinking 3 days ago. We will check an ECG to assess for prolonged QTc which could be secondary to hypomagnesemia or hypomagnesemia. We will obtain basic labs and treat with 5 mg of IV diazepam and 25 mg of chlordiazepoxide and 4 mg IV ondansetron. Her abdomen is soft and nondistended tender so I am not concerned for spontaneous bacterial peritonitis. She certainly has ascites based on clinical exam but I do not feel that she requires an emergent paracentesis. No right lower quadrant tenderness to suggest appendicitis. She denies dysuria frequency so I am not suspicious of recurrent UTI. No fevers so my suspicion is low for C. difficile though she has had antibiotics reportedly last week. No pain out of proportion to suggest necrotizing soft tissue infection. No history of IV drug use to suggest endocarditis. No history of hematemesis so I not concerned for upper GI bleed. Similarly no reported melena. Given soft nontender abdomen will defer CT scan at this point as patient has had 5 in the past 6 months. No fever or infectious symptoms to suggest sepsis so I did not send a lactate as I anticipate that it would be elevated secondary to the patient's history of cirrhosis and likely hepatic dysfunction. No epigastric tenderness to suggest pancreatitis. 2:15 PM CODE STATUS signed DNI/DNR back in April. Patient became tremulousness and endorsed body aches. Will obtain urinalysis given reported UTI last week. She received 2 mg of magnesium. She was mildly hyperglycemic but I do not feel that her presentation was consistent with DKA. Her urinalysis did show ketonuria but did not show glucosuria. Patient does not carry a diagnosis of diabetes. 3:30 PM Repeat labs pending with BMP, magnesium, and creatinine kinase. Patient is tolerating sips of monica paradise and crackers. She has received 2 L of IV fluids with NS. 3:45 PM Repeat labs with persistent high anion gap acidosis that improved slightly from 29-26. Persistent acidosis with a bicarbonate of 13 likely secondary to starvation ketosis and alcoholic ketoacidosis. Creatinine improved slightly from 1.4-1.3. Mild hyperglycemia has also improved from 214-176. Hypomagnesemia improved from 1.4-2.6. 4 PM I met with the patient and offered her hospitalization to which she was amenable. I suspect that her elevated blood pressure and tachycardia were secondary to her lack of metoprolol and amlodipine. She received these orally and has not subsequently vomited. Her CK was not consistent with rhabdomyolysis and her urinalysis was nitrite negative reassuring against UTI. She confirmed full code. I spoke with Dr. CARRASCO who graciously accepted the patient for hospitalization. Patient vomited again in the emergency department. Given her persistent anion gap will treat with 500 cc of D10W. We will also add 1.25 mg of droperidol. I ordered an asymptomatic COVID swab. She will likely benefit from telemetry and possibly an echocardiogram given her age and history of alcohol abuse. Her heart rate is currently 98. HPI General Date/Time Provider Initiated Documentation: 10/17/22 12:40. HPI Narrative: This is a 77-year-old female with a history of hyperlipidemia hypertension cirrhosis with ascites chronic alcoholism insomnia and hypokalemia now in the emergency department in the setting of vomiting and decreased p.o. intake for the past 2 days. Patient reports that she last drank alcohol 3 days ago. She drinks 3-4 drinks per day. Paramedics noted that there was a bottle of Hay behind her in her chair. She said that she had antibiotics last week in the setting of urinary tract infection. She denies any recurrent or persistent dysuria. Concerning her alcohol abuse she denies history of withdrawal. She reports no history of seizures nor intubations in the past. She endorses generalized abdominal pain secondary to her nausea. She has not had any blood in her emesis which has been dark and brown. She reports that she has had paracentesis in the past. Related Data Home Medications Medication Instructions Recorded Confirmed carboxymethylcellulose sodium 0.5 1 drp OU Q4H WHILE AWAKE #30 ea 06/20/19 10/17/22 % eye drops in a dropperette (Refresh Plus) lifitegrast 5 % eye drops in a 1 drp ophthalmic (eye) BID 08/05/20 10/17/22 dropperette (Xiidra) ipratropium 0.5 mg-albuterol 3 mg 3 ml inhalation Q6H PRN 12/25/21 10/17/22 (2.5 mg base)/3 mL nebulization soln albuterol sulfate 90 mcg/actuation 2 puff inhalation QID PRN 02/08/22 10/17/22 aerosol inhaler (Ventolin HFA) shortness of breath or wheezing #8.5 grams amlodipine 10 mg tablet 10 mg PO DAILY #90 tabs 02/08/22 10/17/22 buspirone 5 mg tablet 5 mg PO BID #60 tabs 02/08/22 10/17/22 folic acid 1 mg tablet 1 mg PO DAILY #90 tabs 02/08/22 10/17/22 melatonin 3 mg capsule 6 mg PO HS #180 caps 02/08/22 10/17/22 metoprolol tartrate 50 mg tablet 50 mg PO DAILY #90 tabs 02/08/22 10/17/22 mirtazapine 7.5 mg tablet 7.5 mg PO QHS #90 tabs 02/08/22 10/17/22 sucralfate 1 gram tablet 1 g PO BID #60 tabs 02/08/22 10/17/22 thiamine HCl (vitamin B1) 100 mg 100 mg PO DAILY #90 tabs 02/08/22 10/17/22 tablet valacyclovir 500 mg tablet 500 mg PO DAILY #90 tabs 02/08/22 10/17/22 (Valtrex) fluticasone propionate 50 2 spray NS daily prn #16 grams 03/06/22 10/17/22 mcg/actuation nasal spray,suspension budesonide 0.5 mg/2 mL suspension 0.5 mg (2 mL) inhalation DAILY #60 05/06/22 10/17/22 for nebulization (Pulmicort) mL pantoprazole 40 mg tablet,delayed 40 mg PO BID@0730,2000 #60 tabs 05/21/22 10/17/22 release cyanocobalamin (vitamin B-12) 500 1,000 mcg PO DAILY #180 tabs 07/10/22 10/17/22 mcg tablet (Vitamin B-12) ferrous sulfate 325 mg (65 mg 325 mg PO BID #180 tabs 07/10/22 10/17/22 iron) tablet multivitamin (Multiple Vitamins 1 tab PO DAILY #90 tabs 07/10/22 10/17/22 tablet) quetiapine 25 mg tablet See Rx Instructions PO BID #60 tabs 07/10/22 10/17/22 spironolactone 50 mg tablet 50 mg PO BID #180 tabs 07/10/22 10/17/22 (Aldactone) venlafaxine 75 mg capsule,extended 75 mg PO DAILY #90 caps 07/10/22 10/17/22 release 24 hr mirabegron 50 mg tablet,extended 50 mg PO DAILY #30 tabs 07/20/22 10/17/22 release 24 hr (Myrbetriq) aspirin 81 mg tablet,delayed 81 mg PO DAILY #90 tabs 08/05/22 10/17/22 release furosemide 20 mg tablet See Rx Instructions PO BID #180 08/11/22 10/17/22 tabs ondansetron 4 mg disintegrating 4 mg PO Q8H PRN nausea and 08/17/22 10/17/22 tablet vomiting #20 tabs ondansetron 4 mg disintegrating 4 mg PO TID PRN nausea and 08/24/22 10/17/22 tablet vomiting #6 tabs ondansetron 4 mg disintegrating 4 mg PO Q8H PRN nausea and 09/03/22 10/17/22 tablet vomiting #10 tabs lorazepam 1 mg tablet 0.5 - 1 mg PO QHS PRN sleep #20 09/14/22 10/17/22 tabs Previous Rx's Medication Instructions Recorded carboxymethylcellulose sodium 0.5 1 drp OU Q4H WHILE AWAKE #30 ea 06/20/19 % eye drops in a dropperette (Refresh Plus) albuterol sulfate 90 mcg/actuation 2 puff inhalation QID PRN 02/08/22 aerosol inhaler (Ventolin HFA) shortness of breath or wheezing #8.5 grams amlodipine 10 mg tablet 10 mg PO DAILY #90 tabs 02/08/22 buspirone 5 mg tablet 5 mg PO BID #60 tabs 02/08/22 folic acid 1 mg tablet 1 mg PO DAILY #90 tabs 02/08/22 melatonin 3 mg capsule 6 mg PO HS #180 caps 02/08/22 metoprolol tartrate 50 mg tablet 50 mg PO DAILY #90 tabs 02/08/22 mirtazapine 7.5 mg tablet 7.5 mg PO QHS #90 tabs 02/08/22 sucralfate 1 gram tablet 1 g PO BID #60 tabs 02/08/22 thiamine HCl (vitamin B1) 100 mg 100 mg PO DAILY #90 tabs 02/08/22 tablet valacyclovir 500 mg tablet 500 mg PO DAILY #90 tabs 02/08/22 (Valtrex) fluticasone propionate 50 2 spray NS daily prn #16 grams 03/06/22 mcg/actuation nasal spray,suspension budesonide 0.5 mg/2 mL suspension 0.5 mg (2 mL) inhalation DAILY #60 05/06/22 for nebulization (Pulmicort) mL pantoprazole 40 mg tablet,delayed 40 mg PO BID@07,1999 #60 tabs 05/21/22 release cyanocobalamin (vitamin B-12) 500 1,000 mcg PO DAILY #180 tabs 07/10/22 mcg tablet (Vitamin B-12) ferrous sulfate 325 mg (65 mg 325 mg PO BID #180 tabs 07/10/22 iron) tablet multivitamin (Multiple Vitamins 1 tab PO DAILY #90 tabs 07/10/22 tablet) quetiapine 25 mg tablet See Rx Instructions PO BID #60 tabs 07/10/22 spironolactone 50 mg tablet 50 mg PO BID #180 tabs 07/10/22 (Aldactone) venlafaxine 75 mg capsule,extended 75 mg PO DAILY #90 caps 07/10/22 release 24 hr mirabegron 50 mg tablet,extended 50 mg PO DAILY #30 tabs 07/20/22 release 24 hr (Myrbetriq) aspirin 81 mg tablet,delayed 81 mg PO DAILY #90 tabs 08/05/22 release furosemide 20 mg tablet See Rx Instructions PO BID #180 08/11/22 tabs ondansetron 4 mg disintegrating 4 mg PO Q8H PRN nausea and 08/17/22 tablet vomiting #20 tabs ondansetron 4 mg disintegrating 4 mg PO TID PRN nausea and 08/24/22 tablet vomiting #6 tabs ondansetron 4 mg disintegrating 4 mg PO Q8H PRN nausea and 09/03/22 tablet vomiting #10 tabs lorazepam 1 mg tablet 0.5 - 1 mg PO QHS PRN sleep #20 09/14/22 tabs Allergies Allergy/AdvReac Type Severity Reaction Status Date / Time Penicillins Allergy Mild Rash Verified 10/06/22 09:05 ramipril Allergy Unknown ITCHING Verified 10/06/22 09:05 meperidine [From Demerol] AdvReac Severe Nausea Verified 10/06/22 09:05 bupropion AdvReac Mild GI upset Verified 10/06/22 09:05 AMBER Inhibitors AdvReac Unknown COUGH Verified 10/06/22 09:05 alendronate sodium AdvReac Unknown GI Distress Verified 10/06/22 09:05 clarithromycin AdvReac Unknown intolerant Verified 10/06/22 09:05 paroxetine AdvReac Unknown Diarrhea Verified 10/06/22 09:05 General JORDAN: 3 PFSH All Active Problems (Updated 10/17/22 @ 15:32 by Clarence Heller MD) Hypomagnesemia (Acute) Nausea and vomiting (Acute) Sinus tachycardia (Acute) High anion gap metabolic acidosis (Acute) Elevated blood pressure reading with diagnosis of hypertension (Acute) Pincer nail deformity (Acute) Insomnia (Acute) Thrombocytopenia (Chronic) Elevated bilirubin (Acute) Mixed stress and urge urinary incontinence (Acute) Thyroid nodule (Acute) Anxiety (Chronic) Adverse effect of metronidazole (Acute) Medication monitoring encounter (Acute) Advance care planning (Acute) Cirrhosis of liver with ascites (Acute) Animal bite of right hand with infection (Acute) Umbilical hernia (Acute) Hyperbilirubinemia (Acute) Shortness of breath (Acute) Elevated blood pressure reading without diagnosis of hypertension (Acute) Left arm pain (Acute) Ambulatory dysfunction (Acute) Incontinence (Acute) Anorexia (Acute) Headache (Acute) Depression (Chronic) Chest pain (Acute) Foot pain, right (Acute) Tendinitis of left rotator cuff (Acute) Macrocytosis (Acute 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 Leukopenia (Acute) Headache (Acute) Epigastric abdominal pain (Acute) Calcific tendinitis of left shoulder (Acute) Pulmonary mass (Acute) spiculated mass Pneumonia (Acute) Depression with suicidal ideation (Acute) Alcohol abuse (Chronic) Diarrhea (Acute) Epigastric pain (Acute) Dehydration (Acute) Hypokalemia (Acute) Discharge planning issues (Acute) Palliative care patient (Acute) Difficult intravenous access (Acute) Multiple IV attempts, usually requires ultrasound placement. PTSD (post-traumatic stress disorder) (Acute) Anemia (Chronic) Depression (Chronic) Foot pain, right (Acute) T12 compression fracture (Acute) Presacral mass (Chronic) Deviated nasal septum (Acute) Frequent falls (Chronic) Head injury (Acute) Ambulatory dysfunction (Chronic) Shoulder pain, right (Chronic) Suicidal ideation (Acute) Dry eye (Acute) Pruritus (Acute) Dystrophic nail (Acute) AMBER (acute kidney injury) (Acute) Iron deficiency anemia (Chronic) Alcohol abuse (Chronic) Fall (Acute) Atelectasis of left lung (Chronic) Advance directive on file (Acute) Nodule of upper lobe of right lung (Acute ~09/13/18) 09/13/18 [facility] [employer] [facility]; 12mm SPICULATED -kb Cataract (Chronic 11/07/15) Hypertension (Chronic) high today; she will check readings at home Hyperlipidemia (Chronic) Back pain, chronic (Chronic) Depression (Chronic) Osteopenia (Chronic) Medical History Adjustment disorder with depressed mood Alcoholic ketosis Anemia Cervical radicular pain neck pain and [facility] 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) pls refrain from alcohol Chronic alcoholism she will not stop drinking unless she checks with me, so that we can help her avert withdrawal I do not think she is capable on her own--she would need placement to achieve required goal of 3 months of sobriety Chronic diarrhea Closed right humeral fracture Corneal ulcer, right (~08/23/18) 08/23/18; UV-kb Fracture of humerus, left, closed Genital herpes simplex recurrent gential; suppressive Valtrex GERD (gastroesophageal reflux disease) GI bleed (12/20/16) Hypertension Hypokalemia Hypomagnesemia Incidental lung nodule, greater than or equal to 8mm 1cm, spiculated, stable for many years, recommend f/u in 6 mo Multiple rib fractures 03/11/19 [facility] Non-cardiac chest pain (09/21/16) [facility] [place] 09/21/16 NEGATIVE MP Osteoarthritis Palliative care patient (03/21/17) Pancreatitis, alcoholic, acute Peripheral edema Photophobia of right eye Pleural effusion on left 03/11/19 [employer] Presacral mass (~09/15/18) 09/15/18 [facility] Sciatica right, epidural injuections [facility] Tubular adenoma of colon (01/28/17) Urinary incontinence 01/24/13 urethral suspension and sling at [facility] [place] (bladder suspension 1991) 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 Bladder repair. Repair bladder injury, simple Family History Mother No problems noted. Father , DROWNED at age 50. No problems noted. Sister Personal history of malignant neoplasm MELANOMA Sister No problems noted. Grandfather Personal history of malignant neoplasm STOMACH Grandfather Personal history of malignant neoplasm PROSTATE Grandmother Heart disease AL Acute ill-defined cerebrovascular disease Grandmother Personal history of malignant neoplasm UTERINE Aunt , AL Heart disease AL Aunt , AL Heart disease Brother No problems noted. Social History (Updated 10/06/22 @ 12:01 by Margaret Kinney RN) Smoking/Tobacco Use Status: Former Tobacco Use Quit Date: 08/29/80 Smoking risk assessment performed?: Yes Alcohol Intake: current Alcohol Intake frequency: 3 or more drinks per day Alcohol type: hard liquor Drug use: Never Substance use type: does not use Details: Last alcoholic drink Mike zhong, 2 days ago Current gender identity: female Do you feel safe at home: Yes Do you feel safe in your relationship?: No Additional Social history: Has 1 dog, 4 cats. Exam Narrative Exam Narrative: General: Chronically ill-appearing in no acute distress speaking in complete sentences. Head: Normocephalic, atraumatic Ear, nose, mouth, throat: Grossly normal inspection. Normal voice, handling secretions normally. Neck: Trachea midline. Cardiovascular: Well-perfused distal extremities. Rapid regular rate. No murmurs. Respiratory: Nonlabored respiration. Gastrointestinal: Moderately distended abdomen. Soft. Nontender. No rebound or guarding. Shifting dullness with positive fluid wave. Musculoskeletal: No edema. Moving all 4 extremities spontaneously. Skin: Normal for age and race, grossly normal temperature and turgor. No acute rash. Neurologic: Alert to person and place. No apparently acute to have. Psychiatric: Mood and manner are appropriate. Grooming and personal hygiene are appropriate.
[2022-10-17] MEDS: Normal Saline 1,000 ML 1000 ML IV ×2 (12:41→14:13)
[2022-10-17 12:42] LABS: Abs Immature Grans 0.05 10^3/uL (0.0-0.06); Absolute Eosinophil Count 0.01 10^3/uL (0.0-0.7); Absolute Neutrophil Count 10.41 10^3/uL (1.2-6.7); Basophils % 0.4; Eosinophils % 0.1; HCT 37.4 % (36.0-46.0); HGB 12.4 g/dL (11.2-15.7); Immature Grans % 0.4; Lymphocytes % 4.5; MCH 33.4 pg (27.0-33.0); MCHC 33.2 % (32.0-36.0); MCV 101 fL (80-95); MPV 8.8 fL (8.0-11.0); Monocytes % 1.8; Neutrophils % 92.8; Platelet Count 174 10^3/uL (130-400); RBC 3.71 10^6/uL (3.93-5.22); RDW 14.1 % (11.7-14.6); RDW-SD 51.9 fL; WBC 11.22 10^3/uL (4.4-10.8)
[2022-10-17 12:44] LABS: Absolute Basophil Count 0.04 10^3/uL (0.0-0.2)
[2022-10-17 12:53] LABS: BUN 13 mg/dL (7-18); CO2 13.8 mmol/L (21.0-32.0); CREATININE 1.4 mg/dL (0.55-1.02); Calcium 9.9 mg/dL (8.5-10.1); Chloride 100 mmol/L (98-107); Estimated GFR 38.99 (mL/min/1.73m2); Glucose 214 mg/dL (74-106); Potassium 3.7 mmol/L (3.5-5.1); Sodium 143 mmol/L (136-145)
[2022-10-17 12:54] LABS: Anion Gap 29.2 mmol/L (3-11); ETHANOL BLOOD < 3.0 mg/dL (<10); Magnesium 1.4 mg/dL (1.8-2.4)
[2022-10-17] MEDS: THIAMINE 100 MG in Normal Saline 100 ML 200 MG IVPB (12:55)
[2022-10-17] MEDS: diazePAM 10 MG/2 ML SYR 5 MG IVP (12:55)
[2022-10-17] MEDS: Ondansetron 4 MG/2 ML VIAL IVP ×2 (14:00→17:49)
[2022-10-17] MEDS: MAGNESIUM SULFATE 2 GM/50 ML BAG IVPB (14:04)
[2022-10-17] MEDS: Droperidol 5 MG/2 ML VIAL 1.25 MG IVP ×2 (14:19→16:23)
[2022-10-17] MEDS: Metoprolol CR 50 MG TABCR PO (14:42)
[2022-10-17] MEDS: amLODIPine 5 MG TAB 10 MG PO (15:03)
[2022-10-17] MEDS: chlordiazePOXIDE 25 MG CAP PO (15:03)
[2022-10-17 15:30] LABS: Bilirubin Negative (Negative); Blood Negative (Negative); Clarity Cloudy (Clear); Glucose Negative (Negative); Ketones 40 mg/dL (Negative); Leukocyte Esterase Negative (Negative); Nitrite Negative (Negative); Specific Gravity 1.025 (1.005-1.025); pH 5.5 (5-8)
[2022-10-17 15:36] LABS: Epithelial Cells Few HPF (Negative); Other Cells Negative (Negative); RBC 0-2 HPF (0-2)
[2022-10-17 15:37] LABS: Bacteria Negative HPF (Negative); C & S Indicated? No; Casts Negative LPF (Negative); Crystals Negative HPF (Negative); Mucus Negative (Negative)
[2022-10-17 15:38] LABS: Anion Gap 26.7 mmol/L (3-11); BUN 12 mg/dL (7-18); CO2 13.3 mmol/L (21.0-32.0); CREATININE 1.3 mg/dL (0.55-1.02); Calcium 8.8 mg/dL (8.5-10.1); Chloride 103 mmol/L (98-107); Estimated GFR 42.62 (mL/min/1.73m2); Glucose 176 mg/dL (74-106); Potassium 3.4 mmol/L (3.5-5.1); Sodium 143 mmol/L (136-145)
[2022-10-17 15:39] LABS: Magnesium 2.6 mg/dL (1.8-2.4)
[2022-10-17 15:44] LABS: Creatine Kinase 29 U/L (26-192)
[2022-10-17] MEDS: DEXTROSE 10%-WATER 500 ML 50 ML IV (16:19)
[2022-10-17 16:21] LABS: Source Nasal/Nares
--- NOTE | 2022-10-17 16:35 | HPE_ITS ---
Date of service: 10/17/22 Time of Service: 16:35 Assessment and Plan Assessment and plan (1) High anion gap metabolic acidosis: Status: Acute Assessment and plan: No source of infection has been identified. Thought to be due to starvation. We will continue aggressive IV hydration and electrolyte replacement. Will add hemoglobin A1c, beta hydroxybutyrate, blood sugar not significantly elevated b ut in setting of history need to consider dka. Continue close monitoring (2) Nausea and vomiting: Status: Acute Assessment and plan: Continue IV hydration, antiemetics as needed with abdominal pain, need to add lipase, suspect pancreatitis by physical exam (3) Hypokalemia: Status: Acute Assessment and plan: Continue to replete and follow, secondary to GI losses (4) Hypomagnesemia: Status: Resolved Assessment and plan: Resolved After receiving 2 g of IV magnesium in the emergency department we will repeat level in the a.m. (5) Alcohol abuse: Status: Chronic Assessment and plan: No history of withdrawal No desire to stop drinking (6) DVT prophylaxis: Status: Acute Assessment and plan: SCDs (7) Discharge planning issues: Status: Acute Assessment and plan: Discussed in the emergency department with the patient who chooses to be a full code Has been seen by palliative in the past. discussed with DR Joy History of Present Illness History of Present Illness Chief Complaint: nausea and vomiting Narrative: This is a 77-year-old female patient with a past medical history for alcohol abuse cirrhosis of the liver pancreatitis who presents to the emergency department by EMS after a 3-day history of nausea vomiting unable to take p.o. Presented hypertensive and tachycardic which is consistent with previous presentations and in addition to some dehydration due to inability to take her medications which include beta-j luis and calcium channel j luis. She was given 2 L of IV fluid in the emergency department with some improvement in her symptoms but she remained with a high anion gap and metabolic acidosis. Request was made for observation admission for further hydration and monitoring. Other labs noted was a magnesium level of 1.4 this was repleted with 2 g of IV magnesium. She received IV Zofran with resolution of her nausea. Last alcoholic beverage was reported as 3 days ago but she does not have a history of withdrawal symptoms or seizures. No source of infection has been identified. Review of Systems All systems reviewed & are unremarkable except as noted in HPI and below PFSH All Active Problems (Updated 10/17/22 @ 16:53 by Kimmy Sierra NP) DVT prophylaxis (Acute) Discharge planning issues (Acute) Nausea and vomiting (Acute) Hypomagnesemia (Acute) Nausea and vomiting (Acute) Sinus tachycardia (Acute) High anion gap metabolic acidosis (Acute) Elevated blood pressure reading with diagnosis of hypertension (Acute) Pincer nail deformity (Acute) Insomnia (Acute) Thrombocytopenia (Chronic) Elevated bilirubin (Acute) Mixed stress and urge urinary incontinence (Acute) Thyroid nodule (Acute) Anxiety (Chronic) Adverse effect of metronidazole (Acute) Medication monitoring encounter (Acute) Advance care planning (Acute) Cirrhosis of liver with ascites (Acute) Animal bite of right hand with infection (Acute) Umbilical hernia (Acute) Hyperbilirubinemia (Acute) Shortness of breath (Acute) Elevated blood pressure reading without diagnosis of hypertension (Acute) Left arm pain (Acute) Ambulatory dysfunction (Acute) Incontinence (Acute) Anorexia (Acute) Headache (Acute) Depression (Chronic) Chest pain (Acute) Foot pain, right (Acute) Tendinitis of left rotator cuff (Acute) Macrocytosis (Acute 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 Leukopenia (Acute) Headache (Acute) Epigastric abdominal pain (Acute) Calcific tendinitis of left shoulder (Acute) Pulmonary mass (Acute) spiculated mass Pneumonia (Acute) Depression with suicidal ideation (Acute) Alcohol abuse (Chronic) Diarrhea (Acute) Epigastric pain (Acute) Dehydration (Acute) Hypokalemia (Acute) Discharge planning issues (Acute) Palliative care patient (Acute) Difficult intravenous access (Acute) Multiple IV attempts, usually requires ultrasound placement. PTSD (post-traumatic stress disorder) (Acute) Anemia (Chronic) Depression (Chronic) Foot pain, right (Acute) T12 compression fracture (Acute) Presacral mass (Chronic) Deviated nasal septum (Acute) Frequent falls (Chronic) Head injury (Acute) Ambulatory dysfunction (Chronic) Shoulder pain, right (Chronic) Suicidal ideation (Acute) Dry eye (Acute) Pruritus (Acute) Dystrophic nail (Acute) AMBER (acute kidney injury) (Acute) Iron deficiency anemia (Chronic) Alcohol abuse (Chronic) Fall (Acute) Atelectasis of left lung (Chronic) Advance directive on file (Acute) Nodule of upper lobe of right lung (Acute ~09/13/18) 09/13/18 [facility]; 12mm SPICULATED -kb Cataract (Chronic 11/07/15) Hypertension (Chronic) high today; she will check readings at home Hyperlipidemia (Chronic) Back pain, chronic (Chronic) Depression (Chronic) Osteopenia (Chronic) Medical History (Updated 10/17/22 @ 16:53 by Kimmy Sierra NP) Adjustment disorder with depressed mood Alcoholic ketosis Anemia Cervical radicular pain neck pain and [facility]D [facility] 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) pls refrain from alcohol Chronic alcoholism she will not stop drinking unless she checks with me, so that we can help her avert withdrawal I do not think she is capable on her own--she would need placement to achieve required goal of 3 months of sobriety Chronic diarrhea Closed right humeral fracture Corneal ulcer, right (~08/23/18) 08/23/18; [facility] Fracture of humerus, left, closed Genital herpes simplex recurrent gential; suppressive Valtrex GERD (gastroesophageal reflux disease) GI bleed (12/20/16) Hypertension Hypokalemia Hypomagnesemia Incidental lung nodule, greater than or equal to 8mm 1cm, spiculated, stable for many years, recommend f/u in 6 mo Multiple rib fractures 03/11/19 [facility] Non-cardiac chest pain [place]09/21/16[place] [facility] [place] NEGATIVE MP Osteoarthritis Palliative care patient (03/21/17) Pancreatitis, alcoholic, acute Peripheral edema Photophobia of right eye Pleural effusion on left 03/11/19 [facility] Presacral mass (~09/15/18) 09/15/18 [facility] Sciatica right, epidural injuections [facility] Tubular adenoma of colon (01/28/17) Urinary incontinence 01/24/13 [place]ral [place] [facility] [place] Vision loss of right eye 08/17/18;[facility] Wernicke encephalopathy Surgical History (Updated 10/17/22 @ 22:07 by Gwyn Blake MD) Colonoscopy - MAC (01/28/17) EGD - MAC (12/20/16) History of bilateral ligation of fallopian tubes History of Surgical Procedure a. Bladder repair. Repair bladder injury, simple S/P laparoscopic cholecystectomy (~05/19/22) Family History Mother No problems noted. Father , DROWNED at age 50. No problems noted. Sister Personal history of malignant neoplasm MELANOMA Sister No problems noted. Grandfather Personal history of malignant neoplasm STOMACH Grandfather Personal history of malignant neoplasm PROSTATE Grandmother Heart disease NC Acute ill-defined cerebrovascular disease Grandmother Personal history of malignant neoplasm UTERINE Aunt , NC Heart disease NC Aunt , NC Heart disease Brother No problems noted. Social History (Updated 10/06/22 @ 12:01 by Margaret Kinney RN) Smoking/Tobacco Use Status: Former Tobacco Use Quit Date: 08/29/80 Smoking risk assessment performed?: Yes Alcohol Intake: current Alcohol Intake frequency: 3 or more drinks per day Alcohol type: hard liquor Drug use: Never Substance use type: does not use Details: Last alcoholic drink Mike zhong, 2 days ago Current gender identity: female Do you feel safe at home: Yes Do you feel safe in your relationship?: No Additional Social history: Has 1 dog, 4 cats. Meds Allergies and Home Medications Allergies Allergy/AdvReac Type Severity Reaction Status Date / Time Penicillins Allergy Mild Rash Verified 10/06/22 09:05 ramipril Allergy Unknown ITCHING Verified 10/06/22 09:05 meperidine [From Demerol] AdvReac Severe Nausea Verified 10/06/22 09:05 bupropion AdvReac Mild GI upset Verified 10/06/22 09:05 AMBER Inhibitors AdvReac Unknown COUGH Verified 10/06/22 09:05 alendronate sodium AdvReac Unknown GI Distress Verified 10/06/22 09:05 clarithromycin AdvReac Unknown intolerant Verified 10/06/22 09:05 paroxetine AdvReac Unknown Diarrhea Verified 10/06/22 09:05 Home Medications Medication Instructions Recorded Confirmed Type carboxymethylcellulose sodium 0.5 1 drp OU Q4H WHILE AWAKE #30 ea 06/20/19 10/17/22 Rx % eye drops in a dropperette (Refresh Plus) lifitegrast 5 % eye drops in a 1 drp ophthalmic (eye) BID 08/05/20 10/17/22 History dropperette (Xiidra) ipratropium 0.5 mg-albuterol 3 mg 3 ml inhalation Q6H PRN 12/25/21 10/17/22 History (2.5 mg base)/3 mL nebulization soln albuterol sulfate 90 mcg/actuation 2 puff inhalation QID PRN 02/08/22 10/17/22 Rx aerosol inhaler (Ventolin HFA) shortness of breath or wheezing #8.5 grams amlodipine 10 mg tablet 10 mg PO DAILY #90 tabs 02/08/22 10/17/22 Rx buspirone 5 mg tablet 5 mg PO BID #60 tabs 02/08/22 10/17/22 Rx folic acid 1 mg tablet 1 mg PO DAILY #90 tabs 02/08/22 10/17/22 Rx melatonin 3 mg capsule 6 mg PO HS #180 caps 02/08/22 10/17/22 Rx metoprolol tartrate 50 mg tablet 50 mg PO DAILY #90 tabs 02/08/22 10/17/22 Rx mirtazapine 7.5 mg tablet 7.5 mg PO QHS #90 tabs 02/08/22 10/17/22 Rx sucralfate 1 gram tablet 1 g PO BID #60 tabs 02/08/22 10/17/22 Rx thiamine HCl (vitamin B1) 100 mg 100 mg PO DAILY #90 tabs 02/08/22 10/17/22 Rx tablet valacyclovir 500 mg tablet 500 mg PO DAILY #90 tabs 02/08/22 10/17/22 Rx (Valtrex) fluticasone propionate 50 2 spray NS daily prn #16 grams 03/06/22 10/17/22 Rx mcg/actuation nasal spray,suspension budesonide 0.5 mg/2 mL suspension 0.5 mg (2 mL) inhalation DAILY #60 05/06/22 10/17/22 Rx for nebulization (Pulmicort) mL pantoprazole 40 mg tablet,delayed 40 mg PO BID@0730,1999 #60 tabs 05/21/22 10/17/22 Rx release cyanocobalamin (vitamin B-12) 500 1,000 mcg PO DAILY #180 tabs 07/10/22 10/17/22 Rx mcg tablet (Vitamin B-12) ferrous sulfate 325 mg (65 mg 325 mg PO BID #180 tabs 07/10/22 10/17/22 Rx iron) tablet multivitamin (Multiple Vitamins 1 tab PO DAILY #90 tabs 07/10/22 10/17/22 Rx tablet) quetiapine 25 mg tablet See Rx Instructions PO BID #60 tabs 07/10/22 10/17/22 Rx spironolactone 50 mg tablet 50 mg PO BID #180 tabs 07/10/22 10/17/22 Rx (Aldactone) venlafaxine 75 mg capsule,extended 75 mg PO DAILY #90 caps 07/10/22 10/17/22 Rx release 24 hr mirabegron 50 mg tablet,extended 50 mg PO DAILY #30 tabs 07/20/22 10/17/22 Rx release 24 hr (Myrbetriq) aspirin 81 mg tablet,delayed 81 mg PO DAILY #90 tabs 08/05/22 10/17/22 Rx release furosemide 20 mg tablet See Rx Instructions PO BID #180 08/11/22 10/17/22 Rx tabs ondansetron 4 mg disintegrating 4 mg PO Q8H PRN nausea and 08/17/22 10/17/22 Rx tablet vomiting #20 tabs ondansetron 4 mg disintegrating 4 mg PO TID PRN nausea and 08/24/22 10/17/22 Rx tablet vomiting #6 tabs ondansetron 4 mg disintegrating 4 mg PO Q8H PRN nausea and 09/03/22 10/17/22 Rx tablet vomiting #10 tabs lorazepam 1 mg tablet 0.5 - 1 mg PO QHS PRN sleep #20 09/14/22 10/17/22 Rx tabs Exam Const General: disheveled, frail appearing and ill appearing acutely and chronically Nutritional Appearance: thin Orientation: alert, awake and oriented x3 HENMT Head: normal to inspection, normocephalic and atraumatic Mouth: oral mucosae normal Neck Neck: normal visual inspection Chest Chest: normal inspection of the chest Resp Effort & Inspection: normal respiratory effort and able to speak in complete sentences Cardio Rate: regular rate Rhythm: regular rhythm GI Inspection: normal to inspection Palpation: soft, no masses and tender (midepigastric and left upper quadrant tenderness.) Skin General skin exam: no rashes or lesions noted Neuro General: patient alert, patient awake, patient oriented x3 and no focal motor deficits Extrem General: normal to inspection and no pedal edema Results Labs 10/17/22 12:35 10/17/22 15:25 Labs: Laboratory Results - last 24 hr 10/17/22 10/17/22 10/17/22 12:35 12:35 12:35 WBC 11.22 H RBC 3.71 L Hgb 12.4 Hct 37.4 MCV 101 H MCH 33.4 H MCHC 33.2 RDW 14.1 Plt Count 174 MPV 8.8 Immature Gran % 0.4 Neutrophils % 92.8 Lymphocytes % 4.5 Monocytes % 1.8 Eosinophils % 0.1 Basophils % 0.4 Nucleated RBC % 0.0 Absolute Neutrophils 10.41 H Absolute Lymphocytes 0.50 L Absolute Monocytes 0.20 Absolute Eosinophils 0.01 Absolute Basophils 0.04 Sodium 143 Cancelled Potassium 3.7 Cancelled Chloride 100 Cancelled Carbon Dioxide 13.8 L Cancelled Anion Gap 29.2 H Cancelled BUN 13 Cancelled Creatinine 1.4 H Cancelled Est GFR (CKD-EPI 2020) 38.99 Cancelled Glucose 214 H Cancelled Hemoglobin A1c Calcium 9.9 Cancelled Magnesium 1.4 L Creatine Kinase Urine Color Urine Clarity Urine pH Ur Specific [place] Urine Protein Urine Ketones Urine Blood Urine Nitrite Urine Bilirubin Urine Urobilinogen Ur Leukocyte Esterase Urine RBC Urine WBC Ur Epithelial Cells Urine Crystals Urine Bacteria Urine Casts Urine Mucus Urine Other Ur Culture Indicated? Urine Glucose Ethyl Alcohol < 3.0 Cancelled COVID-19 Source 10/17/22 10/17/22 10/17/22 15:10 15:25 15:25 WBC RBC Hgb Hct MCV MCH MCHC RDW Plt Count MPV Immature Gran % Neutrophils % Lymphocytes % Monocytes % Eosinophils % Basophils % Nucleated RBC % Absolute Neutrophils Absolute Lymphocytes Absolute Monocytes Absolute Eosinophils Absolute Basophils Sodium 143 Potassium 3.4 L Chloride 103 Carbon Dioxide 13.3 L Anion Gap 26.7 H BUN 12 Creatinine 1.3 H Est GFR (CKD-EPI 2020) 42.62 Glucose 176 H Hemoglobin A1c Calcium 8.8 Magnesium 2.6 H Creatine Kinase Urine Color Yellow Urine Clarity Cloudy Urine pH 5.5 Ur Specific [place] 1.025 Urine Protein 30 H Urine Ketones 40 H Urine Blood Negative Urine Nitrite Negative Urine Bilirubin Negative Urine Urobilinogen 1.0 H Ur Leukocyte Esterase Negative Urine RBC 0-2 Urine WBC 5-10 Ur Epithelial Cells Few Urine Crystals Negative Urine Bacteria Negative Urine Casts Negative Urine Mucus Negative Urine Other Negative Ur Culture Indicated? No Urine Glucose Negative Ethyl Alcohol COVID-19 Source 10/17/22 10/17/22 10/17/22 15:25 16:15 16:15 WBC RBC Hgb Hct MCV MCH MCHC RDW Plt Count MPV Immature Gran % Neutrophils % Lymphocytes % Monocytes % Eosinophils % Basophils % Nucleated RBC % Absolute Neutrophils Absolute Lymphocytes Absolute Monocytes Absolute Eosinophils Absolute Basophils Sodium Potassium Chloride Carbon Dioxide Anion Gap BUN Creatinine Est GFR (CKD-EPI 2020) Glucose Hemoglobin A1c Cancelled Calcium Magnesium Creatine Kinase 29 Urine Color Urine Clarity Urine pH Ur Specific [place] Urine Protein Urine Ketones Urine Blood Urine Nitrite Urine Bilirubin Urine Urobilinogen Ur Leukocyte Esterase Urine RBC Urine WBC Ur Epithelial Cells Urine Crystals Urine Bacteria Urine Casts Urine Mucus Urine Other Ur Culture Indicated? Urine Glucose Ethyl Alcohol COVID-19 Source Nasal/Nares Last Vital Signs Temp 36.3 C L 10/17/22 12:20 Pulse 114 H 10/17/22 16:01 Resp 21 10/17/22 15:46 BP 176/87 H 10/17/22 16:01 Pulse Ox 97 10/17/22 15:46 PAWSS Have you Been Recently Intoxicated or Drunk Within the Last 30 days?: Unable to Obtain Have you Ever Experienced Previous Episodes of Alcohol Withdrawal?: Unable to Obtain Have you ever Experienced Withdrawal Seizures?: Unable to Obtain Have you ever Experienced Delirium Tremens(DT)s?: Unable to Obtain Have you ever undergone Alcohol Rehabilitation Treatment (i.e, inpt ot outpatient treatment programs)?: Yes Have you ever Experienced Blackouts?: No Have you ever Combined Alcohol with other Downers within the last 90 days?: No Have you ever Combined Alcohol with any other Substance of Abuse during the last 90 days?: No Positive Blood Alcohol level on Presentation? [PCS.BAL]: No Evidence of Increased Autonomic Activity (i.e. HR>120, tremor, sweating, agitation, nausea)?: Yes Result: 2 Time Spent Time spent with Patient: 40-54 minutes Time was spent: preparing to see the patient(eg.review tests), obtaining and/or reviewing separately otained hiistory, ordering medications,tests, procedures, indepentently interpreting results and counseling the patient
[2022-10-17 16:52] LABS: COVID-19 PCR Negative (Negative)
[2022-10-17 17:06] LABS: Lipase 13 U/L (16-77)
[2022-10-17 17:11] LABS: Hemoglobin A1C 4.5 % (<5.7)
[2022-10-17 17:28] LABS: BE (Venous) -11 mmol/L (-2-3); HCO3 (Venous) 15 mmol/L (23-28); O2 Sat (Venous) 71 %; TCO2 (Venous) 15 mmol/L (24-29); pCO2 (Venous) 32 mmHg (41-51); pH (Venous) 7.29 (7.31-7.41); pO2 (Venous) 44 mmHg
[2022-10-17 17:31] LABS: Lactate 11.7 mmol/L (0.6-1.4)
[2022-10-17] MEDS: POTASSIUM CHLORIDE 10 MEQ/100 ML BAG 100 MEQ IVPB ×4 (17:34→21:57)
[2022-10-17] MEDS: Metoprolol 5 MG/5 ML VIAL IVP (17:35)
[2022-10-17] MEDS: Sucralfate 1 GM TAB PO (17:35)
[2022-10-17] MEDS: Normal Saline Flush 10 ML SYR IVP (17:36)
--- NOTE | 2022-10-17 17:43 | DI.CT_ITS ---
Exam(s) CT ABDOMEN PELVIS W EXAM: CT ABDOMEN PELVIS W CLINICAL HISTORY: elevated lactate, nausea vomiting. TECHNIQUE: Imaging Protocol: Axial computed tomography images with coronal and sagittal reformatted images were created and reviewed CONTRAST MATERIAL: Intravenous: Omnipaque 350 Contrast volume:100 ml Oral: / no COMPARISON: CT CT ABDOMEN PELVIS W from 08/23/2022 CR,XR XR PORTABLE CHEST AP from 09/11/2022 FINDINGS: Exam is limited by patient motion. ABDOMEN: Lung Bases: The heart is enlarged. Old bilateral rib fractures. Dependent changes at the lung bases . Significant motion artifact. Liver: Severe fatty infiltration of the liver.. No measurable mass. Gallbladder and biliary tract: Status post cholecystectomy. No radiodense calculus or dilation. Pancreas: Normal density, no abnormal calcifications or inflammatory process. Spleen: Borderline enlargement. Kidneys: Normal size, contour and axis. No radiodense stones or obstructive uropathy. No suspicious m asses seen. Adrenal glands: No masses seen. Abdominal Aorta: Abdominal portion non-dilated. PELVIS: Bladder: No gross wall thickening. No calculi.No focal mass. Bowel: No obstruction or bowel wall thickening. Appendix normal. Peritoneal cavity: Increased ascites when compared with prior, now seen in both upper and lower quadr ants, surrounding the liver and spleen. Bones: Scoliosis and degenerative changes of the lumbar spine. Stable mild compression fracture of t he inferior endplate of T12.. Reproductive organs: Within normal limits. Lymph nodes: Unremarkable. Stable appearance of adjacent soft tissue masses in the presacral fat. Impression: Increasing ascites. No evidence of bowel obstruction. RADIATION DOSE DELIVERED: 1,104.75mGy.cm Total DLP DATA REPOSITORY: All CT scans at this facility are submitted to the National Radiology Data Registry (NRDR) Dose Index Registry (DIR) with the [employer] ([employer]). RADIATION OPTIMIZATION: All CT scans at this facility use at least one of these dose optimization te chniques: automated exposure control; mA and/or kV adjustment per patient size (includes targeted exa ms where dose is matched to clinical indication); or iterative reconstruction.
[2022-10-17] MEDS: Lactated Ringers 1,000 ML 175 ML IV (17:56)
[2022-10-17 18:06] LABS: Lab Add On Test DONE
[2022-10-17 18:19] LABS: ALT 31 U/L (14-59); AST 103 U/L (15-37); Albumin 3.3 g/dL (3.4-5.0); Alkaline Phosphatase 183 U/L (46-116); Bilirubin, Total 4.4 mg/dL (0.2-1.0); Total Protein 6.4 g/dL (6.4-8.2)
[2022-10-17] MEDS: Normal Saline - Diluent 50 ML VIAL IJ (18:40)
[2022-10-17] MEDS: Omnipaque 350 MG/ML 100 ML BTL IJ (18:41)
--- NOTE | 2022-10-17 18:47 | DI.VRAD_ITS ---
PROCEDURE INFORMATION: Exam: CT Abdomen And Pelvis With Contrast Exam date and time: 10/17/2022 6:19 PM Age: 77 years old Clinical indication: Abnormal findings; Abnormal lab test; Nausea and vomiting; Prior surgery; Surgery date: 6+ months; Surgery type: Bladder repair; Patient HX: Elevated lactate, nausea vomiting TECHNIQUE: Imaging protocol: Computed tomography of the abdomen and pelvis with contrast. Radiation optimization: All CT scans at this facility use at least one of these dose optimization techniques: automated exposure control; mA and/or kV adjustment per patient size (includes targeted exams where dose is matched to clinical indication); or iterative reconstruction. Contrast material: OMNIPAQUE 350; Contrast volume: 70 ml; Contrast route: INTRAVENOUS (IV); COMPARISON: CT ABDOMEN PELVIS W 08/23/2022 6:17 PM FINDINGS: Mildly limited due to motion artifact Cardiomegaly and minimal subsegmental atelectasis. Chronic rib fractures observed bilaterally A small hiatal hernia is detected. Liver: Fatty infiltration and questionable mildly nodular contour No mass. Gallbladder and bile ducts: Prior cholecystectomy. No ductal dilation. Pancreas: No ductal dilation. Spleen: No splenomegaly. Adrenal glands: No mass. Kidneys and ureters: Renal cysts noted No hydronephrosis. Stomach and bowel: No obstruction. No mucosal thickening. Appendix: No evidence of appendicitis. Intraperitoneal space: No free air. No significant fluid collection. Calcifications in the left paracolic gutter and left adnexa noted Vasculature: No abdominal aortic aneurysm. Lymph nodes: Sterling mass versus metastatic lesions in the presacral region measuring up to 3.1 cm Urinary bladder: Unremarkable as visualized. Reproductive: Unremarkable as visualized. Bones/joints: . No acute fracture. Degenerative changes and levoscoliosis Soft tissues: Unremarkable. IMPRESSION: Moderate ascites and question cirrhosis. No definite active bleeding noted Sterling mass versus metastatic lesions in the presacral space as noted, grossly stable Additional nonurgent findings as noted Dictated and Authenticated by: Dylon Carter MD. Ordering:TAMIKA Oneal MD
[2022-10-17] MEDS: Pantoprazole 40 MG VIAL IVP (19:15)
[2022-10-17] MEDS: QUEtiapine 25 MG TAB 12.5 MG PO (19:15)
[2022-10-17] MEDS: Ferrous Sulfate 325 MG TAB PO (19:15)
[2022-10-17] MEDS: Furosemide 40 MG TAB PO (19:15)
[2022-10-17] MEDS: busPIRone 5 MG TAB PO (19:15)
[2022-10-17] MEDS: Refresh PLUS Eye Drops 0.4ml OU (20:27)
[2022-10-17] MEDS: Melatonin 3 MG TAB 6 MG PO (21:15)
[2022-10-17] MEDS: Mirtazapine 15 MG TAB 7.5 MG PO (21:16)
[2022-10-17] MEDS: LORazepam 1 MG TAB PO (21:16)
[2022-10-17 22:37] LABS: Abs Immature Grans 0.03 10^3/uL (0.0-0.06); Absolute Lymphocyte Count 0.37 10^3/uL (1.2-3.4); Absolute Monocyte Count 0.26 10^3/uL (0.1-0.8); Absolute Neutrophil Count 5.44 10^3/uL (1.2-6.7); HCT 30.7 % (36.0-46.0); HGB 9.9 g/dL (11.2-15.7); Immature Grans % 0.5; Lymphocytes % 6.1; MCH 33.1 pg (27.0-33.0); MCHC 32.2 % (32.0-36.0); MCV 103 fL (80-95); MPV 9.4 fL (8.0-11.0); Monocytes % 4.3; Neutrophils % 89.1; Platelet Count 97 10^3/uL (130-400); RBC 2.99 10^6/uL (3.93-5.22); RDW 14.3 % (11.7-14.6); RDW-SD 52.9 fL
[2022-10-17 22:49] LABS: Diff Comment PLT Morph Reviewed; RBC Morphology Normal
[2022-10-17 22:58] LABS: BE (Venous) 2 mmol/L (-2-3); HCO3 (Venous) 25 mmol/L (23-28); O2 Sat (Venous) > 99 %; pCO2 (Venous) 31 mmHg (41-51); pH (Venous) 7.51 (7.31-7.41); pO2 (Venous) 192 mmHg
[2022-10-17 23:01] LABS: Lactate 4.3 mmol/L (0.6-1.4)
[2022-10-17 23:18] LABS: ALT 26 U/L (14-59); AST 93 U/L (15-37); Alkaline Phosphatase 165 U/L (46-116); Anion Gap 11.1 mmol/L (3-11); BUN 9 mg/dL (7-18); Bilirubin, Total 3.8 mg/dL (0.2-1.0); CO2 24.9 mmol/L (21.0-32.0); Calcium 8.5 mg/dL (8.5-10.1); Chloride 103 mmol/L (98-107); Estimated GFR 58.39 (mL/min/1.73m2); Glucose 173 mg/dL (74-106); Potassium 4.7 mmol/L (3.5-5.1); Sodium 139 mmol/L (136-145); Total Protein 5.7 g/dL (6.4-8.2)
[2022-10-17 23:38] LABS: Procalcitonin 0.3 ng/mL
[2022-10-18] VITALS (7 sets, daily range): BP systolic 105–161; BP diastolic 66–90; PULSE 82–99; RESP 1–20; TEMP 36.8–37.4; O2SAT 95–100
[2022-10-18] MEDS: Lactated Ringers 1,000 ML 175 ML IV ×3 (00:59→16:37)
[2022-10-18 06:57] LABS: BE (Venous) 5 mmol/L (-2-3); HCO3 (Venous) 30 mmol/L (23-28); O2 Sat (Venous) 48 %; TCO2 (Venous) 28 mmol/L (24-29); pCO2 (Venous) 48 mmHg (41-51); pH (Venous) 7.41 (7.31-7.41); pO2 (Venous) 29 mmHg
[2022-10-18 06:59] LABS: Lactate 2.2 mmol/L (0.6-1.4)
--- NOTE | 2022-10-18 07:00 | DI.US_ITS ---
Exam(s) US ABDOMEN LIMITED EXAM: US ABDOMEN LIMITED CLINICAL HISTORY: abdominal pain TECHNIQUE: Ultrasound abdomen performed using standard protocol. COMPARISON: CT CT ABDOMEN PELVIS W from 10/17/2022 FINDINGS: LIVER: Normal size. Increased echogenicity and coarsened echotexture, consistent with attic steatosi s is well as cirrhosis. There is nodularity of the liver surface. Echogenicity. No focal liver les ions are seen.. GALLBLADDER: Status post cholecystectomy.. BILIARY SYSTEM: No intrahepatic or extrahepatic biliary ductal dilation. RIGHT KIDNEY: Normal size. No evidence of renal calculi. No evidence of hydronephrosis. No suspicious renal mass. Two cysts identified. PANCREAS: Normal where visualized. ABDOMINAL AORTA AND IVC: Visualized portions normal caliber. ASCITES: Ascites noted around liver IMPRESSION: Cirrhotic appearing liver. Ascites noted around liver.. DATA REPOSITORY:
[2022-10-18 07:07] LABS: Abs Immature Grans 0.02 10^3/uL (0.0-0.06); Absolute Basophil Count 0.02 10^3/uL (0.0-0.2); Absolute Lymphocyte Count 1.16 10^3/uL (1.2-3.4); Absolute Monocyte Count 0.29 10^3/uL (0.1-0.8); Absolute Neutrophil Count 6.29 10^3/uL (1.2-6.7); Basophils % 0.3; HCT 37.5 % (36.0-46.0); HGB 12.3 g/dL (11.2-15.7); Immature Grans % 0.3; Lymphocytes % 14.9; MCH 33.6 pg (27.0-33.0); MCHC 32.8 % (32.0-36.0); MCV 103 fL (80-95); MPV 10.2 fL (8.0-11.0); Monocytes % 3.7; Neutrophils % 80.8; Platelet Count 122 10^3/uL (130-400); RBC 3.66 10^6/uL (3.93-5.22); RDW 14.7 % (11.7-14.6); RDW-SD 53.2 fL; WBC 7.78 10^3/uL (4.4-10.8)
[2022-10-18 07:34] LABS: Anion Gap 9.1 mmol/L (3-11); BUN 10 mg/dL (7-18); CO2 29.9 mmol/L (21.0-32.0); CREATININE 0.9 mg/dL (0.55-1.02); Calcium 9.2 mg/dL (8.5-10.1); Chloride 103 mmol/L (98-107); Estimated GFR 66.26 (mL/min/1.73m2); Glucose 122 mg/dL (74-106); Potassium 3.8 mmol/L (3.5-5.1); Sodium 142 mmol/L (136-145)
[2022-10-18 07:40] LABS: ALT 27 U/L (14-59); AST 87 U/L (15-37); Albumin 3.4 g/dL (3.4-5.0); Alkaline Phosphatase 183 U/L (46-116); Bilirubin, Direct 1.3 mg/dL (0.0-0.2); Bilirubin, Total 3.4 mg/dL (0.2-1.0); Lipase 43 U/L (16-77); Magnesium 1.7 mg/dL (1.8-2.4); Total Protein 6.6 g/dL (6.4-8.2)
--- NOTE | 2022-10-18 08:06 | W.PALLCONSUL ---
Date of service: 10/18/22 Time of Service: 08:06 History of Present Illness History of Present Illness Chief Complaint: Abdominal pain Narrative: Julia is a 77-year-old woman who is well-known to me. She has end-stage cirrhosis with ascites. She has had frequent paracentesis to help with her breathing. Her pain has been increasing. It worsened and she came to the emergency room and was admitted for further care. She states that she is extremely tired. Things have been getting worse at home. She does like her caregiver even though she is kind of messy. She loves her animals and wants to be home as soon as she can. She states that she has not been drinking very much because of cost. Consults Consult date: 10/18/22 Requesting physician: Aydin Joy Assessment and Plan Assessment and plan (1) Nausea and vomiting: Status: Resolved (2) Cirrhosis of liver with ascites: Status: Acute (3) Alcohol abuse: Status: Chronic (4) Palliative care patient: Status: Acute Assessment and plan: We again spoke about code status. She says she wants help for her stomach pain, but does not want CPR. I relayed this information to the hospitalist, Dr Joy. She again stated to me that in the event of her heart stopping or her breathing stopping, she does not want CPR Leticia has had numerous admissions and CAT scans of her belly. She continues to drink although by her statement less often. She has had multiple paracentesis. I do feel that she has end-stage cirrhosis and probably has weeks to months to live. She is not interested in hospice when I have spoken to her in the past. I do not feel that today is a day that I can talk to her about this. I will continue to follow her both inpatient and outpatient. Review of Systems Narrative: Overwhelming fatigue, nausea, vomiting, abdominal pain. No chest pain. She does feel short of breath. PFSH All Active Problems (Updated 10/18/22 @ 17:37 by Kimmy Sierra NP) DVT prophylaxis (Acute) Discharge planning issues (Acute) Hypomagnesemia (Acute) Nausea and vomiting (Acute) Sinus tachycardia (Acute) High anion gap metabolic acidosis (Acute) Elevated blood pressure reading with diagnosis of hypertension (Acute) Pincer nail deformity (Acute) Insomnia (Acute) Thrombocytopenia (Chronic) Elevated bilirubin (Acute) Mixed stress and urge urinary incontinence (Acute) Thyroid nodule (Acute) Anxiety (Chronic) Adverse effect of metronidazole (Acute) Medication monitoring encounter (Acute) Advance care planning (Acute) Cirrhosis of liver with ascites (Acute) Animal bite of right hand with infection (Acute) Umbilical hernia (Acute) Hyperbilirubinemia (Acute) Shortness of breath (Acute) Elevated blood pressure reading without diagnosis of hypertension (Acute) Left arm pain (Acute) Ambulatory dysfunction (Acute) Incontinence (Acute) Anorexia (Acute) Headache (Acute) Depression (Chronic) Chest pain (Acute) Foot pain, right (Acute) Tendinitis of left rotator cuff (Acute) Macrocytosis (Acute 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 Leukopenia (Acute) Headache (Acute) Epigastric abdominal pain (Acute) Calcific tendinitis of left shoulder (Acute) Pulmonary mass (Acute) spiculated mass Pneumonia (Acute) Depression with suicidal ideation (Acute) Alcohol abuse (Chronic) Diarrhea (Acute) Epigastric pain (Acute) Dehydration (Acute) Discharge planning issues (Acute) Palliative care patient (Acute) Difficult intravenous access (Acute) Multiple IV attempts, usually requires ultrasound placement. PTSD (post-traumatic stress disorder) (Acute) Anemia (Chronic) Depression (Chronic) Foot pain, right (Acute) T12 compression fracture (Acute) Presacral mass (Chronic) Deviated nasal septum (Acute) Frequent falls (Chronic) Head injury (Acute) Ambulatory dysfunction (Chronic) Shoulder pain, right (Chronic) Suicidal ideation (Acute) Dry eye (Acute) Pruritus (Acute) Dystrophic nail (Acute) AMBER (acute kidney injury) (Acute) Iron deficiency anemia (Chronic) Alcohol abuse (Chronic) Fall (Acute) Atelectasis of left lung (Chronic) Advance directive on file (Acute) Nodule of upper lobe of right lung (Acute ~09/13/18) 09/13/18 [facility]; 12mm SPICULATED -kb Cataract (Chronic 11/07/15) Hypertension (Chronic) high today; she will check readings at home Hyperlipidemia (Chronic) Back pain, chronic (Chronic) Depression (Chronic) Osteopenia (Chronic) Medical History (Updated 10/18/22 @ 17:37 by Kimmy Sierra NP) Adjustment disorder with depressed mood Alcoholic ketosis Anemia Cervical radicular pain neck pain and [facility] 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) pls refrain from alcohol Chronic alcoholism she will not stop drinking unless she checks with me, so that we can help her avert withdrawal I do not think she is capable on her own--she would need placement to achieve required goal of 3 months of sobriety Chronic diarrhea Closed right humeral fracture Corneal ulcer, right (~08/23/18) 08/23/18; [facility]- Fracture of humerus, left, closed Genital herpes simplex recurrent gential; suppressive Valtrex GERD (gastroesophageal reflux disease) GI bleed (12/20/16) Hypertension Hypokalemia Hypomagnesemia Incidental lung nodule, greater than or equal to 8mm 1cm, spiculated, stable for many years, recommend f/u in 6 mo Multiple rib fractures 03/11/19 [facility] Non-cardiac chest pain (09/21/16) [facility]/21/16 NEGATIVE MP Osteoarthritis Palliative care patient (03/21/17) Pancreatitis, alcoholic, acute Peripheral edema Photophobia of right eye Pleural effusion on left 03/11/19 [facility] Presacral mass (~09/15/18) 09/15/18 [facility] Sciatica right, epidural injuections [facility] Tubular adenoma of colon (01/28/17) Urinary incontinence 01/24/13 urethral suspension and sling at [facility] [place] (bladder suspension 1991) Vision loss of right eye 08/17/18;[id number] Wernicke encephalopathy Surgical History (Updated 10/17/22 @ 22:07 by Gwyn Blake MD) Colonoscopy - MAC (01/28/17) EGD - MAC (12/20/16) History of bilateral ligation of fallopian tubes History of Surgical Procedure a. Bladder repair. Repair bladder injury, simple S/P laparoscopic cholecystectomy (~05/19/22) Family History Mother No problems noted. Father , DROWNED at age 50. No problems noted. Sister Personal history of malignant neoplasm MELANOMA Sister No problems noted. Grandfather Personal history of malignant neoplasm STOMACH Grandfather Personal history of malignant neoplasm PROSTATE Grandmother Heart disease HI Acute ill-defined cerebrovascular disease Grandmother Personal history of malignant neoplasm UTERINE Aunt , HI Heart disease HI Aunt , HI Heart disease Brother No problems noted. Social History (Updated 10/06/22 @ 12:01 by Margaret Kinney RN) Smoking/Tobacco Use Status: Former Tobacco Use Quit Date: 08/29/80 Smoking risk assessment performed?: Yes Alcohol Intake: current Alcohol Intake frequency: 3 or more drinks per day Alcohol type: hard liquor Drug use: Never Substance use type: does not use Details: Last alcoholic drink Mike zhong, 2 days ago Current gender identity: female Do you feel safe at home: Yes Do you feel safe in your relationship?: No Additional Social history: Has 1 dog, 4 cats. Exam Narrative Exam Narrative: Leticia looks worse than usual. I have seen her many times over that home and in the hospital. She looks extremely fatigued. Right I decrease reaction to light. Her heart is regular. Her lungs very little air movement. Her abdomen is not tense, bowel sounds present, but patient states that it hurts all over when I touch. She does not have any edema. Mood anxious and depressed Results Last Vital Signs Temp 100.2 F H 10/17/22 22:54 Pulse 103 H 10/17/22 22:54 Resp 16 10/17/22 22:54 BP 146/75 H 10/17/22 22:54 Pulse Ox 98 10/18/22 01:49 Labs 10/18/22 06:50 10/18/22 06:50 Labs: Laboratory Results - last 24 hr 10/17/22 10/17/22 10/17/22 12:35 12:35 12:35 WBC 11.22 H RBC 3.71 L Hgb 12.4 Hct 37.4 MCV 101 H MCH 33.4 H MCHC 33.2 RDW 14.1 Plt Count 174 MPV 8.8 Immature Gran % 0.4 Neutrophils % 92.8 Lymphocytes % 4.5 Monocytes % 1.8 Eosinophils % 0.1 Basophils % 0.4 Nucleated RBC % 0.0 Absolute Neutrophils 10.41 H Absolute Lymphocytes 0.50 L Absolute Monocytes 0.20 Absolute Eosinophils 0.01 Absolute Basophils 0.04 RBC Morphology VBG pH VBG pCO2 VBG pO2 VBG HCO3 VBG Total CO2 VBG O2 Saturation VBG Base Excess VBG Lactate Sodium 143 Cancelled Potassium 3.7 Cancelled Chloride 100 Cancelled Carbon Dioxide 13.8 L Cancelled Anion Gap 29.2 H Cancelled BUN 13 Cancelled Creatinine 1.4 H Cancelled Est GFR (CKD-EPI 2020) 38.99 Cancelled Glucose 214 H Cancelled Hemoglobin A1c Calcium 9.9 Cancelled Magnesium 1.4 L Total Bilirubin Conjugated Bilirubin AST ALT Alkaline Phosphatase Creatine Kinase Total Protein Albumin Lipase Procalcitonin Urine Color Urine Clarity Urine pH Ur Specific [employer] Urine Protein Urine Ketones Urine Blood Urine Nitrite Urine Bilirubin Urine Urobilinogen Ur Leukocyte Esterase Urine RBC Urine WBC Ur Epithelial Cells Urine Crystals Urine Bacteria Urine Casts Urine Mucus Urine Other Ur Culture Indicated? Urine Glucose Ethyl Alcohol < 3.0 Cancelled COVID-19 Source SARS-CoV-2 (PCR) Add-On Test Request 10/17/22 10/17/22 10/17/22 12:35 15:10 15:25 WBC RBC Hgb Hct MCV MCH MCHC RDW Plt Count MPV Immature Gran % Neutrophils % Lymphocytes % Monocytes % Eosinophils % Basophils % Nucleated RBC % Absolute Neutrophils Absolute Lymphocytes Absolute Monocytes Absolute Eosinophils Absolute Basophils RBC Morphology VBG pH VBG pCO2 VBG pO2 VBG HCO3 VBG Total CO2 VBG O2 Saturation VBG Base Excess VBG Lactate Sodium 143 Potassium 3.4 L Chloride 103 Carbon Dioxide 13.3 L Anion Gap 26.7 H BUN 12 Creatinine 1.3 H Est GFR (CKD-EPI 2020) 42.62 Glucose 176 H Hemoglobin A1c 4.5 Calcium 8.8 Magnesium Total Bilirubin Conjugated Bilirubin AST ALT Alkaline Phosphatase Creatine Kinase Total Protein Albumin Lipase Procalcitonin Urine Color Yellow Urine Clarity Cloudy Urine pH 5.5 Ur Specific [employer] 1.025 Urine Protein 30 H Urine Ketones 40 H Urine Blood Negative Urine Nitrite Negative Urine Bilirubin Negative Urine Urobilinogen 1.0 H Ur Leukocyte Esterase Negative Urine RBC 0-2 Urine WBC 5-10 Ur Epithelial Cells Few Urine Crystals Negative Urine Bacteria Negative Urine Casts Negative Urine Mucus Negative Urine Other Negative Ur Culture Indicated? No Urine Glucose Negative Ethyl Alcohol COVID-19 Source SARS-CoV-2 (PCR) Add-On Test Request 10/17/22 10/17/22 10/17/22 15:25 15:25 15:25 WBC RBC Hgb Hct MCV MCH MCHC RDW Plt Count MPV Immature Gran % Neutrophils % Lymphocytes % Monocytes % Eosinophils % Basophils % Nucleated RBC % Absolute Neutrophils Absolute Lymphocytes Absolute Monocytes Absolute Eosinophils Absolute Basophils RBC Morphology VBG pH VBG pCO2 VBG pO2 VBG HCO3 VBG Total CO2 VBG O2 Saturation VBG Base Excess VBG Lactate Sodium Potassium Chloride Carbon Dioxide Anion Gap BUN Creatinine Est GFR (CKD-EPI 2020) Glucose Hemoglobin A1c Calcium Magnesium 2.6 H Total Bilirubin Conjugated Bilirubin AST ALT Alkaline Phosphatase Creatine Kinase 29 Total Protein Albumin Lipase 13 L Procalcitonin Urine Color Urine Clarity Urine pH Ur Specific [employer] Urine Protein Urine Ketones Urine Blood Urine Nitrite Urine Bilirubin Urine Urobilinogen Ur Leukocyte Esterase Urine RBC Urine WBC Ur Epithelial Cells Urine Crystals Urine Bacteria Urine Casts Urine Mucus Urine Other Ur Culture Indicated? Urine Glucose Ethyl Alcohol COVID-19 Source SARS-CoV-2 (PCR) Add-On Test Request 10/17/22 10/17/22 10/17/22 16:15 16:15 17:20 WBC RBC Hgb Hct MCV MCH MCHC RDW Plt Count MPV Immature Gran % Neutrophils % Lymphocytes % Monocytes % Eosinophils % Basophils % Nucleated RBC % Absolute Neutrophils Absolute Lymphocytes Absolute Monocytes Absolute Eosinophils Absolute Basophils RBC Morphology VBG pH 7.29 L VBG pCO2 32 L VBG pO2 44 VBG HCO3 15 L VBG Total CO2 15 L VBG O2 Saturation 71 VBG Base Excess -11 L VBG Lactate Sodium Potassium Chloride Carbon Dioxide Anion Gap BUN Creatinine Est GFR (CKD-EPI 2020) Glucose Hemoglobin A1c Cancelled Calcium Magnesium Total Bilirubin Conjugated Bilirubin AST ALT Alkaline Phosphatase Creatine Kinase Total Protein Albumin Lipase Procalcitonin Urine Color Urine Clarity Urine pH Ur Specific [employer] Urine Protein Urine Ketones Urine Blood Urine Nitrite Urine Bilirubin Urine Urobilinogen Ur Leukocyte Esterase Urine RBC Urine WBC Ur Epithelial Cells Urine Crystals Urine Bacteria Urine Casts Urine Mucus Urine Other Ur Culture Indicated? Urine Glucose Ethyl Alcohol COVID-19 Source Nasal/Nares SARS-CoV-2 (PCR) Negative Add-On Test Request 10/17/22 10/17/22 10/17/22 17:20 17:20 17:20 WBC RBC Hgb Hct MCV MCH MCHC RDW Plt Count MPV Immature Gran % Neutrophils % Lymphocytes % Monocytes % Eosinophils % Basophils % Nucleated RBC % Absolute Neutrophils Absolute Lymphocytes Absolute Monocytes Absolute Eosinophils Absolute Basophils RBC Morphology VBG pH VBG pCO2 VBG pO2 VBG HCO3 VBG Total CO2 VBG O2 Saturation VBG Base Excess VBG Lactate 11.7 H* Sodium Potassium Chloride Carbon Dioxide Anion Gap BUN Creatinine Est GFR (CKD-EPI 2020) Glucose Hemoglobin A1c Calcium Magnesium Total Bilirubin 4.4 H Conjugated Bilirubin 2.0 H AST 103 H ALT 31 Alkaline Phosphatase 183 H Creatine Kinase Total Protein 6.4 Albumin 3.3 L Lipase Procalcitonin Urine Color Urine Clarity Urine pH Ur Specific [employer] Urine Protein Urine Ketones Urine Blood Urine Nitrite Urine Bilirubin Urine Urobilinogen Ur Leukocyte Esterase Urine RBC Urine WBC Ur Epithelial Cells Urine Crystals Urine Bacteria Urine Casts Urine Mucus Urine Other Ur Culture Indicated? Urine Glucose Ethyl Alcohol COVID-19 Source SARS-CoV-2 (PCR) Add-On Test Request DONE 10/17/22 10/17/22 10/17/22 22:28 22:28 22:28 WBC 6.10 RBC 2.99 L Hgb 9.9 L D Hct 30.7 L MCV 103 H MCH 33.1 H MCHC 32.2 RDW 14.3 Plt Count 97 L MPV 9.4 Immature Gran % 0.5 Neutrophils % 89.1 Lymphocytes % 6.1 Monocytes % 4.3 Eosinophils % 0.0 Basophils % 0.0 Nucleated RBC % 0.0 Absolute Neutrophils 5.44 Absolute Lymphocytes 0.37 L Absolute Monocytes 0.26 Absolute Eosinophils 0.00 Absolute Basophils 0.00 RBC Morphology Normal VBG pH VBG pCO2 VBG pO2 VBG HCO3 VBG Total CO2 VBG O2 Saturation VBG Base Excess VBG Lactate Sodium 139 Potassium 4.7 D Chloride 103 Carbon Dioxide 24.9 Anion Gap 11.1 H BUN 9 Creatinine 1.0 Est GFR (CKD-EPI 2020) 58.39 Glucose 173 H Hemoglobin A1c Calcium 8.5 Magnesium Total Bilirubin 3.8 H Conjugated Bilirubin AST 93 H ALT 26 Alkaline Phosphatase 165 H Creatine Kinase Total Protein 5.7 L Albumin 3.0 L Lipase Procalcitonin 0.3 Urine Color Urine Clarity Urine pH Ur Specific [employer] Urine Protein Urine Ketones Urine Blood Urine Nitrite Urine Bilirubin Urine Urobilinogen Ur Leukocyte Esterase Urine RBC Urine WBC Ur Epithelial Cells Urine Crystals Urine Bacteria Urine Casts Urine Mucus Urine Other Ur Culture Indicated? Urine Glucose Ethyl Alcohol COVID-19 Source SARS-CoV-2 (PCR) Add-On Test Request 10/17/22 10/17/22 10/18/22 22:28 22:28 06:50 WBC RBC Hgb Hct MCV MCH MCHC RDW Plt Count MPV Immature Gran % Neutrophils % Lymphocytes % Monocytes % Eosinophils % Basophils % Nucleated RBC % Absolute Neutrophils Absolute Lymphocytes Absolute Monocytes Absolute Eosinophils Absolute Basophils RBC Morphology VBG pH 7.51 H VBG pCO2 31 L VBG pO2 192 VBG HCO3 25 VBG Total CO2 VBG O2 Saturation > 99 VBG Base Excess 2 VBG Lactate 4.3 H* Sodium 142 Potassium 3.8 Chloride 103 Carbon Dioxide 29.9 Anion Gap 9.1 BUN 10 Creatinine 0.9 Est GFR (CKD-EPI 2020) 66.26 Glucose 122 H Hemoglobin A1c Calcium 9.2 Magnesium Total Bilirubin Conjugated Bilirubin AST ALT Alkaline Phosphatase Creatine Kinase Total Protein Albumin Lipase Procalcitonin Urine Color Urine Clarity Urine pH Ur Specific [employer] Urine Protein Urine Ketones Urine Blood Urine Nitrite Urine Bilirubin Urine Urobilinogen Ur Leukocyte Esterase Urine RBC Urine WBC Ur Epithelial Cells Urine Crystals Urine Bacteria Urine Casts Urine Mucus Urine Other Ur Culture Indicated? Urine Glucose Ethyl Alcohol COVID-19 Source SARS-CoV-2 (PCR) Add-On Test Request 10/18/22 10/18/22 10/18/22 06:50 06:50 06:50 WBC 7.78 RBC 3.66 L Hgb 12.3 D Hct 37.5 MCV 103 H MCH 33.6 H MCHC 32.8 RDW 14.7 H Plt Count 122 L MPV 10.2 Immature Gran % 0.3 Neutrophils % 80.8 Lymphocytes % 14.9 Monocytes % 3.7 Eosinophils % 0.0 Basophils % 0.3 Nucleated RBC % 0.0 Absolute Neutrophils 6.29 Absolute Lymphocytes 1.16 L Absolute Monocytes 0.29 Absolute Eosinophils 0.00 Absolute Basophils 0.02 RBC Morphology VBG pH VBG pCO2 VBG pO2 VBG HCO3 VBG Total CO2 VBG O2 Saturation VBG Base Excess VBG Lactate 2.2 H* Sodium Potassium Chloride Carbon Dioxide Anion Gap BUN Creatinine Est GFR (CKD-EPI 2020) Glucose Hemoglobin A1c Calcium Magnesium 1.7 L Total Bilirubin 3.4 H Conjugated Bilirubin 1.3 H AST 87 H ALT 27 Alkaline Phosphatase 183 H Creatine Kinase Total Protein 6.6 Albumin 3.4 Lipase 43 Procalcitonin Urine Color Urine Clarity Urine pH Ur Specific [employer] Urine Protein Urine Ketones Urine Blood Urine Nitrite Urine Bilirubin Urine Urobilinogen Ur Leukocyte Esterase Urine RBC Urine WBC Ur Epithelial Cells Urine Crystals Urine Bacteria Urine Casts Urine Mucus Urine Other Ur Culture Indicated? Urine Glucose Ethyl Alcohol COVID-19 Source SARS-CoV-2 (PCR) Add-On Test Request 10/18/22 06:50 WBC RBC Hgb Hct MCV MCH MCHC RDW Plt Count MPV Immature Gran % Neutrophils % Lymphocytes % Monocytes % Eosinophils % Basophils % Nucleated RBC % Absolute Neutrophils Absolute Lymphocytes Absolute Monocytes Absolute Eosinophils Absolute Basophils RBC Morphology VBG pH 7.41 VBG pCO2 48 VBG pO2 29 VBG HCO3 30 H VBG Total CO2 28 VBG O2 Saturation 48 VBG Base Excess 5 H VBG Lactate Sodium Potassium Chloride Carbon Dioxide Anion Gap BUN Creatinine Est GFR (CKD-EPI 2020) Glucose Hemoglobin A1c Calcium Magnesium Total Bilirubin Conjugated Bilirubin AST ALT Alkaline Phosphatase Creatine Kinase Total Protein Albumin Lipase Procalcitonin Urine Color Urine Clarity Urine pH Ur Specific [employer] Urine Protein Urine Ketones Urine Blood Urine Nitrite Urine Bilirubin Urine Urobilinogen Ur Leukocyte Esterase Urine RBC Urine WBC Ur Epithelial Cells Urine Crystals Urine Bacteria Urine Casts Urine Mucus Urine Other Ur Culture Indicated? Urine Glucose Ethyl Alcohol COVID-19 Source SARS-CoV-2 (PCR) Add-On Test Request Imaging Imaging Studies: CT Scan FINDINGS: Exam is limited by patient motion. ABDOMEN: Lung Bases: The heart is enlarged.? Old bilateral rib fractures.? Dependent changes at the lung bases.? Significant motion artifact. Liver: Severe fatty infiltration of the liver..? No measurable mass. Gallbladder and biliary tract: Status post cholecystectomy.? No radiodense calculus or dilation.? Pancreas: Normal density, no abnormal calcifications or inflammatory process. Spleen: Borderline enlargement. Kidneys: Normal size, contour and axis. No radiodense stones or obstructive uropathy. No suspicious masses seen. Adrenal glands: No masses seen. Abdominal Aorta: Abdominal portion non-dilated. PELVIS:? Bladder:? No gross wall thickening. No calculi.No focal mass. Bowel: No obstruction or bowel wall thickening. Appendix normal. Peritoneal cavity: Increased ascites when compared with prior, now seen in both upper and lower quadrants, surrounding the liver and spleen. Bones: Scoliosis and degenerative changes of the lumbar spine.? Stable mild compression fracture of the inferior endplate of T12.. Reproductive organs: Within normal limits. Lymph nodes: Unremarkable.? Stable appearance of adjacent soft tissue masses in the presacral fat. Impression: Increasing ascites. No evidence of bowel obstruction.
[2022-10-18] MEDS: Albuterol/Ipratropium 3 ML UPD VIAL IH (08:38)
[2022-10-18] MEDS: Budesonide 0.5 MG/2 ML UPD VIAL IH (09:56)
[2022-10-18 10:03] LABS: Lactate 1.9 mmol/L (0.6-1.4)
[2022-10-18] MEDS: Mirabegron 50 MG TABCR PO (10:06)
[2022-10-18] MEDS: Folic Acid 1 MG TAB PO (10:06)
[2022-10-18] MEDS: Cyanocobalamin 500 MCG TAB 1000 MCG PO (10:06)
[2022-10-18] MEDS: amLODIPine 10 MG TAB PO (10:06)
[2022-10-18] MEDS: Venlafaxine 75 MG CAPCR PO (10:06)
[2022-10-18] MEDS: Ferrous Sulfate 325 MG TAB PO ×2 (10:07→20:23)
[2022-10-18] MEDS: busPIRone 5 MG TAB PO ×2 (10:07→20:23)
[2022-10-18] MEDS: valACYclovir 500 MG TAB PO (10:07)
[2022-10-18] MEDS: Refresh PLUS Eye Drops 0.4ml OU ×5 (10:07→23:48)
[2022-10-18] MEDS: Metoprolol 50 MG TAB PO (10:07)
[2022-10-18] MEDS: Sucralfate 1 GM TAB PO ×3 (10:07→16:37)
[2022-10-18] MEDS: Thiamine 100 MG TAB PO (10:07)
[2022-10-18] MEDS: Aspirin E.C. 81 MG TABEC PO (10:07)
[2022-10-18] MEDS: QUEtiapine 25 MG TAB 12.5 MG PO ×2 (10:07→20:23)
[2022-10-18] MEDS: Pantoprazole 40 MG VIAL IVP ×2 (10:15→20:25)
[2022-10-18] MEDS: Multivitamin TAB 1 TAB PO (10:32)
--- NOTE | 2022-10-18 10:47 | W.PM.PROGNOT ---
Date of Service Date of service: 10/18/22 Time of Service: 10:47 Assessment and Plan Assessment and plan (1) Nausea and vomiting: Status: Resolved Assessment and plan: Continue IV hydration, antiemetics as needed lipase normal, ct unremarkable. advance diet today (2) Hypokalemia: Status: Resolved Assessment and plan: repleted, continue to follow, secondary to GI losses (3) Hypomagnesemia: Status: Resolved Assessment and plan: Resolved After receiving 2 g of IV magnesium in the emergency department we will repeat level in the a.m. (4) Alcohol abuse: Status: Chronic Assessment and plan: No history of withdrawal No desire to stop drinking continue thiamine (5) DVT prophylaxis: Status: Acute Assessment and plan: teds (6) Discharge planning issues: Status: Acute Assessment and plan: palliative care consulted for continuity of care. patient wishes to be DNR/DNI as previous request. anticipate discharge to home tomorrow, +/- services. discussed with DR Joy Subjective Subjective Patient reports: no new complaints, feels better, pain is less, tolerating liquids well, voiding w/o difficulty and afebrile; denies shortness of breath Exam Const General: cooperative, comfortable and no acute distress Nutritional Appearance: thin Orientation: alert, awake and oriented x3 HENMT Head: normal to inspection, normocephalic and atraumatic Mouth: oral mucosae normal Neck Neck: normal visual inspection Chest Chest: normal inspection of the chest Resp Effort & Inspection: normal respiratory effort and able to speak in complete sentences Cardio Rate: regular rate Rhythm: regular rhythm GI Inspection: normal to inspection Palpation: soft, no guarding and tender (Minimal midepigastric and left upper quadrant tenderness.) Skin General skin exam: no rashes or lesions noted Neuro General: patient alert, patient awake, patient oriented x3 and no focal motor deficits Extrem General: normal to inspection and no pedal edema Objective Last Vital Signs Temp 37.4 C 10/18/22 07:10 Pulse 91 H 10/18/22 08:42 Resp 20 10/18/22 08:42 BP 161/90 H 10/18/22 07:10 Pulse Ox 100 10/18/22 08:42 Laboratory Results - last 24 hr 10/17/22 10/17/22 10/17/22 12:35 12:35 12:35 WBC 11.22 H RBC 3.71 L Hgb 12.4 Hct 37.4 MCV 101 H MCH 33.4 H MCHC 33.2 RDW 14.1 Plt Count 174 MPV 8.8 Immature Gran % 0.4 Neutrophils % 92.8 Lymphocytes % 4.5 Monocytes % 1.8 Eosinophils % 0.1 Basophils % 0.4 Nucleated RBC % 0.0 Absolute Neutrophils 10.41 H Absolute Lymphocytes 0.50 L Absolute Monocytes 0.20 Absolute Eosinophils 0.01 Absolute Basophils 0.04 RBC Morphology VBG pH VBG pCO2 VBG pO2 VBG HCO3 VBG Total CO2 VBG O2 Saturation VBG Base Excess VBG Lactate Sodium 143 Cancelled Potassium 3.7 Cancelled Chloride 100 Cancelled Carbon Dioxide 13.8 L Cancelled Anion Gap 29.2 H Cancelled BUN 13 Cancelled Creatinine 1.4 H Cancelled Est GFR (CKD-EPI 2020) 38.99 Cancelled Glucose 214 H Cancelled Hemoglobin A1c Calcium 9.9 Cancelled Magnesium 1.4 L Total Bilirubin Conjugated Bilirubin AST ALT Alkaline Phosphatase Creatine Kinase Total Protein Albumin Lipase Procalcitonin Urine Color Urine Clarity Urine pH Ur Specific [place] Urine Protein Urine Ketones Urine Blood Urine Nitrite Urine Bilirubin Urine Urobilinogen Ur Leukocyte Esterase Urine RBC Urine WBC Ur Epithelial Cells Urine Crystals Urine Bacteria Urine Casts Urine Mucus Urine Other Ur Culture Indicated? Urine Glucose Ethyl Alcohol < 3.0 Cancelled COVID-19 Source SARS-CoV-2 (PCR) Add-On Test Request 10/17/22 10/17/22 10/17/22 12:35 15:10 15:25 WBC RBC Hgb Hct MCV MCH MCHC RDW Plt Count MPV Immature Gran % Neutrophils % Lymphocytes % Monocytes % Eosinophils % Basophils % Nucleated RBC % Absolute Neutrophils Absolute Lymphocytes Absolute Monocytes Absolute Eosinophils Absolute Basophils RBC Morphology VBG pH VBG pCO2 VBG pO2 VBG HCO3 VBG Total CO2 VBG O2 Saturation VBG Base Excess VBG Lactate Sodium 143 Potassium 3.4 L Chloride 103 Carbon Dioxide 13.3 L Anion Gap 26.7 H BUN 12 Creatinine 1.3 H Est GFR (CKD-EPI 2020) 42.62 Glucose 176 H Hemoglobin A1c 4.5 Calcium 8.8 Magnesium Total Bilirubin Conjugated Bilirubin AST ALT Alkaline Phosphatase Creatine Kinase Total Protein Albumin Lipase Procalcitonin Urine Color Yellow Urine Clarity Cloudy Urine pH 5.5 Ur Specific [place] 1.025 Urine Protein 30 H Urine Ketones 40 H Urine Blood Negative Urine Nitrite Negative Urine Bilirubin Negative Urine Urobilinogen 1.0 H Ur Leukocyte Esterase Negative Urine RBC 0-2 Urine WBC 5-10 Ur Epithelial Cells Few Urine Crystals Negative Urine Bacteria Negative Urine Casts Negative Urine Mucus Negative Urine Other Negative Ur Culture Indicated? No Urine Glucose Negative Ethyl Alcohol COVID-19 Source SARS-CoV-2 (PCR) Add-On Test Request 10/17/22 10/17/22 10/17/22 15:25 15:25 15:25 WBC RBC Hgb Hct MCV MCH MCHC RDW Plt Count MPV Immature Gran % Neutrophils % Lymphocytes % Monocytes % Eosinophils % Basophils % Nucleated RBC % Absolute Neutrophils Absolute Lymphocytes Absolute Monocytes Absolute Eosinophils Absolute Basophils RBC Morphology VBG pH VBG pCO2 VBG pO2 VBG HCO3 VBG Total CO2 VBG O2 Saturation VBG Base Excess VBG Lactate Sodium Potassium Chloride Carbon Dioxide Anion Gap BUN Creatinine Est GFR (CKD-EPI 2020) Glucose Hemoglobin A1c Calcium Magnesium 2.6 H Total Bilirubin Conjugated Bilirubin AST ALT Alkaline Phosphatase Creatine Kinase 29 Total Protein Albumin Lipase 13 L Procalcitonin Urine Color Urine Clarity Urine pH Ur Specific [place] Urine Protein Urine Ketones Urine Blood Urine Nitrite Urine Bilirubin Urine Urobilinogen Ur Leukocyte Esterase Urine RBC Urine WBC Ur Epithelial Cells Urine Crystals Urine Bacteria Urine Casts Urine Mucus Urine Other Ur Culture Indicated? Urine Glucose Ethyl Alcohol COVID-19 Source SARS-CoV-2 (PCR) Add-On Test Request 10/17/22 10/17/22 10/17/22 16:15 16:15 17:20 WBC RBC Hgb Hct MCV MCH MCHC RDW Plt Count MPV Immature Gran % Neutrophils % Lymphocytes % Monocytes % Eosinophils % Basophils % Nucleated RBC % Absolute Neutrophils Absolute Lymphocytes Absolute Monocytes Absolute Eosinophils Absolute Basophils RBC Morphology VBG pH 7.29 L VBG pCO2 32 L VBG pO2 44 VBG HCO3 15 L VBG Total CO2 15 L VBG O2 Saturation 71 VBG Base Excess -11 L VBG Lactate Sodium Potassium Chloride Carbon Dioxide Anion Gap BUN Creatinine Est GFR (CKD-EPI 2020) Glucose Hemoglobin A1c Cancelled Calcium Magnesium Total Bilirubin Conjugated Bilirubin AST ALT Alkaline Phosphatase Creatine Kinase Total Protein Albumin Lipase Procalcitonin Urine Color Urine Clarity Urine pH Ur Specific [place] Urine Protein Urine Ketones Urine Blood Urine Nitrite Urine Bilirubin Urine Urobilinogen Ur Leukocyte Esterase Urine RBC Urine WBC Ur Epithelial Cells Urine Crystals Urine Bacteria Urine Casts Urine Mucus Urine Other Ur Culture Indicated? Urine Glucose Ethyl Alcohol COVID-19 Source Nasal/Nares SARS-CoV-2 (PCR) Negative Add-On Test Request 10/17/22 10/17/22 10/17/22 17:20 17:20 17:20 WBC RBC Hgb Hct MCV MCH MCHC RDW Plt Count MPV Immature Gran % Neutrophils % Lymphocytes % Monocytes % Eosinophils % Basophils % Nucleated RBC % Absolute Neutrophils Absolute Lymphocytes Absolute Monocytes Absolute Eosinophils Absolute Basophils RBC Morphology VBG pH VBG pCO2 VBG pO2 VBG HCO3 VBG Total CO2 VBG O2 Saturation VBG Base Excess VBG Lactate 11.7 H* Sodium Potassium Chloride Carbon Dioxide Anion Gap BUN Creatinine Est GFR (CKD-EPI 2020) Glucose Hemoglobin A1c Calcium Magnesium Total Bilirubin 4.4 H Conjugated Bilirubin 2.0 H AST 103 H ALT 31 Alkaline Phosphatase 183 H Creatine Kinase Total Protein 6.4 Albumin 3.3 L Lipase Procalcitonin Urine Color Urine Clarity Urine pH Ur Specific [place] Urine Protein Urine Ketones Urine Blood Urine Nitrite Urine Bilirubin Urine Urobilinogen Ur Leukocyte Esterase Urine RBC Urine WBC Ur Epithelial Cells Urine Crystals Urine Bacteria Urine Casts Urine Mucus Urine Other Ur Culture Indicated? Urine Glucose Ethyl Alcohol COVID-19 Source SARS-CoV-2 (PCR) Add-On Test Request DONE 10/17/22 10/17/22 10/17/22 22:28 22:28 22:28 WBC 6.10 RBC 2.99 L Hgb 9.9 L D Hct 30.7 L MCV 103 H MCH 33.1 H MCHC 32.2 RDW 14.3 Plt Count 97 L MPV 9.4 Immature Gran % 0.5 Neutrophils % 89.1 Lymphocytes % 6.1 Monocytes % 4.3 Eosinophils % 0.0 Basophils % 0.0 Nucleated RBC % 0.0 Absolute Neutrophils 5.44 Absolute Lymphocytes 0.37 L Absolute Monocytes 0.26 Absolute Eosinophils 0.00 Absolute Basophils 0.00 RBC Morphology Normal VBG pH VBG pCO2 VBG pO2 VBG HCO3 VBG Total CO2 VBG O2 Saturation VBG Base Excess VBG Lactate Sodium 139 Potassium 4.7 D Chloride 103 Carbon Dioxide 24.9 Anion Gap 11.1 H BUN 9 Creatinine 1.0 Est GFR (CKD-EPI 2020) 58.39 Glucose 173 H Hemoglobin A1c Calcium 8.5 Magnesium Total Bilirubin 3.8 H Conjugated Bilirubin AST 93 H ALT 26 Alkaline Phosphatase 165 H Creatine Kinase Total Protein 5.7 L Albumin 3.0 L Lipase Procalcitonin 0.3 Urine Color Urine Clarity Urine pH Ur Specific [place] Urine Protein Urine Ketones Urine Blood Urine Nitrite Urine Bilirubin Urine Urobilinogen Ur Leukocyte Esterase Urine RBC Urine WBC Ur Epithelial Cells Urine Crystals Urine Bacteria Urine Casts Urine Mucus Urine Other Ur Culture Indicated? Urine Glucose Ethyl Alcohol COVID-19 Source SARS-CoV-2 (PCR) Add-On Test Request 10/17/22 10/17/22 10/18/22 22:28 22:28 06:50 WBC RBC Hgb Hct MCV MCH MCHC RDW Plt Count MPV Immature Gran % Neutrophils % Lymphocytes % Monocytes % Eosinophils % Basophils % Nucleated RBC % Absolute Neutrophils Absolute Lymphocytes Absolute Monocytes Absolute Eosinophils Absolute Basophils RBC Morphology VBG pH 7.51 H VBG pCO2 31 L VBG pO2 192 VBG HCO3 25 VBG Total CO2 VBG O2 Saturation > 99 VBG Base Excess 2 VBG Lactate 4.3 H* Sodium 142 Potassium 3.8 Chloride 103 Carbon Dioxide 29.9 Anion Gap 9.1 BUN 10 Creatinine 0.9 Est GFR (CKD-EPI 2020) 66.26 Glucose 122 H Hemoglobin A1c Calcium 9.2 Magnesium Total Bilirubin Conjugated Bilirubin AST ALT Alkaline Phosphatase Creatine Kinase Total Protein Albumin Lipase Procalcitonin Urine Color Urine Clarity Urine pH Ur Specific [place] Urine Protein Urine Ketones Urine Blood Urine Nitrite Urine Bilirubin Urine Urobilinogen Ur Leukocyte Esterase Urine RBC Urine WBC Ur Epithelial Cells Urine Crystals Urine Bacteria Urine Casts Urine Mucus Urine Other Ur Culture Indicated? Urine Glucose Ethyl Alcohol COVID-19 Source SARS-CoV-2 (PCR) Add-On Test Request 10/18/22 10/18/22 10/18/22 06:50 06:50 06:50 WBC 7.78 RBC 3.66 L Hgb 12.3 D Hct 37.5 MCV 103 H MCH 33.6 H MCHC 32.8 RDW 14.7 H Plt Count 122 L MPV 10.2 Immature Gran % 0.3 Neutrophils % 80.8 Lymphocytes % 14.9 Monocytes % 3.7 Eosinophils % 0.0 Basophils % 0.3 Nucleated RBC % 0.0 Absolute Neutrophils 6.29 Absolute Lymphocytes 1.16 L Absolute Monocytes 0.29 Absolute Eosinophils 0.00 Absolute Basophils 0.02 RBC Morphology VBG pH VBG pCO2 VBG pO2 VBG HCO3 VBG Total CO2 VBG O2 Saturation VBG Base Excess VBG Lactate 2.2 H* Sodium Potassium Chloride Carbon Dioxide Anion Gap BUN Creatinine Est GFR (CKD-EPI 2020) Glucose Hemoglobin A1c Calcium Magnesium 1.7 L Total Bilirubin 3.4 H Conjugated Bilirubin 1.3 H AST 87 H ALT 27 Alkaline Phosphatase 183 H Creatine Kinase Total Protein 6.6 Albumin 3.4 Lipase 43 Procalcitonin Urine Color Urine Clarity Urine pH Ur Specific [place] Urine Protein Urine Ketones Urine Blood Urine Nitrite Urine Bilirubin Urine Urobilinogen Ur Leukocyte Esterase Urine RBC Urine WBC Ur Epithelial Cells Urine Crystals Urine Bacteria Urine Casts Urine Mucus Urine Other Ur Culture Indicated? Urine Glucose Ethyl Alcohol COVID-19 Source SARS-CoV-2 (PCR) Add-On Test Request 10/18/22 10/18/22 06:50 10:00 WBC RBC Hgb Hct MCV MCH MCHC RDW Plt Count MPV Immature Gran % Neutrophils % Lymphocytes % Monocytes % Eosinophils % Basophils % Nucleated RBC % Absolute Neutrophils Absolute Lymphocytes Absolute Monocytes Absolute Eosinophils Absolute Basophils RBC Morphology VBG pH 7.41 VBG pCO2 48 VBG pO2 29 VBG HCO3 30 H VBG Total CO2 28 VBG O2 Saturation 48 VBG Base Excess 5 H VBG Lactate 1.9 H Sodium Potassium Chloride Carbon Dioxide Anion Gap BUN Creatinine Est GFR (CKD-EPI 2020) Glucose Hemoglobin A1c Calcium Magnesium Total Bilirubin Conjugated Bilirubin AST ALT Alkaline Phosphatase Creatine Kinase Total Protein Albumin Lipase Procalcitonin Urine Color Urine Clarity Urine pH Ur Specific [place] Urine Protein Urine Ketones Urine Blood Urine Nitrite Urine Bilirubin Urine Urobilinogen Ur Leukocyte Esterase Urine RBC Urine WBC Ur Epithelial Cells Urine Crystals Urine Bacteria Urine Casts Urine Mucus Urine Other Ur Culture Indicated? Urine Glucose Ethyl Alcohol COVID-19 Source SARS-CoV-2 (PCR) Add-On Test Request [facility] Have you Been Recently Intoxicated or Drunk Within the Last 30 days?: Unable to Obtain Have you Ever Experienced Previous Episodes of Alcohol Withdrawal?: Unable to Obtain Have you ever Experienced Withdrawal Seizures?: Unable to Obtain Have you ever Experienced Delirium Tremens(DT)s?: Unable to Obtain Have you ever undergone Alcohol Rehabilitation Treatment (i.e, inpt ot outpatient treatment programs)?: Yes Have you ever Experienced Blackouts?: No Have you ever Combined Alcohol with other Downers within the last 90 days?: No Have you ever Combined Alcohol with any other Substance of Abuse during the last 90 days?: No Positive Blood Alcohol level on Presentation? [PCS.BAL]: No Evidence of Increased Autonomic Activity (i.e. HR>120, tremor, sweating, agitation, nausea)?: Yes Result: 2 Time Spent with Patient Time Spent with Patient: 35-49 minutes Time was spent: preparing to see the patient(eg.review tests), obtaining and/or reviewing separately otained hiistory, ordering medications,tests, procedures, indepentently interpreting results and counseling the patient
[2022-10-18] MEDS: MAGNESIUM SULFATE 1 GM/100 ML BAG IVPB (13:50)
--- NOTE | 2022-10-18 16:58 | INITIAL_ITS ---
- If Service Date Differs Date of service: 10/18/22 Time of Service: 16:59 Care Management Initial Assess REASON FOR HOSPITALIZATION:: High anion gap acidosis PAST MEDICAL HISTORY/PAST SURGICAL HISTORY:: All Active Problems. DVT prophylaxis (Acute). Discharge planning issues (Acute). Nausea and vomiting (Acute). Hypomagnesemia (Acute). Nausea and vomiting (Acute). Sinus tachycardia (Acute). High anion gap metabolic acidosis (Acute). Elevated blood pressure reading with diagnosis of hypertension (Acute). Pincer nail deformity (Acute). Insomnia (Acute). Thrombocytopenia (Chronic). Elevated bilirubin (Acute). Mixed stress and urge urinary incontinence (Acute). Thyroid nodule (Acute). Anxiety (Chronic). Adverse effect of metronidazole (Acute). Medication monitoring encounter (Acute). Advance care planning (Acute). Cirrhosis of liver with ascites (Acute). Animal bite of right hand with infection (Acute). Umbilical hernia (Acute). Hyperbilirubinemia (Acute). Shortness of breath (Acute). Elevated blood pressure reading without diagnosis of hypertension (Acute). Left arm pain (Acute). Ambulatory dysfunction (Acute). Incontinence (Acute). Anorexia (Acute). Headache (Acute). Depression (Chronic). Chest pain (Acute). Foot pain, right (Acute). Tendinitis of left rotator cuff (Acute). Macrocytosis (Acute 09/26/14). due to alcohol. Leukopenia (Acute). Headache (Acute). Epigastric abdominal pain (Acute). Calcific tendinitis of left shoulder (Acute). Pulmonary mass (Acute). spiculated mass. Pneumonia (Acute). Depression with suicidal ideation (Acute). Alcohol abuse (Chronic). Diarrhea (Acute). Epigastric pain (Acute). Dehydration (Acute). Hypokalemia (Acute). Discharge planning issues (Acute). Palliative care patient (Acute). Difficult intravenous access (Acute). Multiple IV attempts, usually requires ultrasound placement. PTSD (post- traumatic stress disorder) (Acute). Anemia (Chronic). Depression (Chronic). Foot pain, right (Acute). T12 compression fracture (Acute). Presacral mass (Chronic). Deviated nasal septum (Acute). Frequent falls (Chronic). Head injury (Acute). Ambulatory dysfunction (Chronic). Shoulder pain, right (Chronic). Suicidal ideation (Acute). Dry eye (Acute). Pruritus (Acute). Dystrophic nail (Acute). AMBER (acute kidney injury) (Acute). Iron deficiency anemia (Chronic). Alcohol abuse (Chronic). Fall (Acute). Atelectasis of left lung (Chronic). Advance directive on file (Acute). Nodule of upper lobe of right lung (Acute ~09/13/18). 09/13/18 [facility]; 12mm SPICULATED -kb. Cataract (Chronic 11/07/15). Hypertension (Chronic). high today; she will check readings at home. Hyperlipidemia (Chronic). Back pain, chronic (Chronic). Depression (Chronic). Osteopenia (Chronic). Medical History. Adjustment disorder with depressed mood. Alcoholic ketosis. Anemia. Cervical radicular pain. neck pain and DJD. [facility]. 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). pls refrain from alcohol. Chronic alcoholism. she will not stop drinking unless she checks with me, so that we can help her avert withdrawal. I do not think she is capable on her own--she would need placement to achieve required goal of 3 months of sobriety. Chronic diarrhea. Closed right humeral fracture. Corneal ulcer, right (~08/23/18). 08/23/18; UV-kb. Fracture of humerus, left, closed. Genital herpes simplex. recurrent gential; suppressive Valtrex. GERD (gastroesophageal reflux disease). GI bleed (12/20/16). Hypertension. Hypokalemia. Hypomagnesemia. Incidental lung nodule, greater than or equal to 8mm. 1cm, spiculated, stable for many years, recommend f/u in 6 mo. Multiple rib fractures. 03/11/19 [facility]. Non-cardiac chest pain (09/21/16). [facility] [place] [facility] [place] NEGATIVE MP. Osteoarthritis. Palliative care patient (03/21/17). Pancreatitis, alcoholic, acute. Peripheral edema. Photophobia of right eye. Pleural effusion on left. 03/11/19 [facility]. 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 09/15/18 [facility]. Sciatica. right, epidural injue ctions. [facility]. Tubular adenoma of colon (01/28/17). Urinary incontinence. 01/24/13 urethral suspension and sling [place] [facility] [place]. (bladder suspension 1991). Vision loss of right eye. 08/17/18;[facility]. Wernicke encephalopathy. Surgical History. Colonoscopy - MAC (01/28/17). EGD - MAC (12/20/16). History of bilateral ligation of fallopian tubes. History of Surgical Procedure. a. Bladder repair. Repair bladder injury, simple. S/P laparoscopic cholecystectomy (~05/19/22) PREVIOUS FUNCTIONAL STATUS/SOCIAL/FAMILY SUPPORTS:: Leticia lives alone in her home in [place] with her dog and cats. She has a sister who takes care of her animals when she is hospitalized, and a homemaker, Marry, who visits her 3x/week for 2 hrs at a time. Her son Seth is her DPOA, although he lives in [place]. CURRENT FUNCTIONAL STATUS:: Leticia was lying in bed when CM met with her. She stated that she had spilled her milk all over her bed. CM called for staff to assist Leticia to get out of bed so she could be cleaned up and have her lunch sitting up in the chair. Leticia stated that she is feeling better and has been able to eat a small amount after her ultrasound this morning, but she is feeling weak. CM requested a PT consult from the provider to assess Leticia for additional needs in the community. CM will continue to follow. ADVANCE DIRECTIVES:: [employer] on file. Son, Seth, listed as agent and DPOA. Has patient been provided with info about the portal/API?: Yes Did the patient sign up for the portal?: Yes (active) CODE STATUS:: DNR/DNI INSURANCE COVERAGE / FINANCIAL ISSUES:: [facility] MCR replacement CURRENT HOME/COMMUNITY SERVICES/EQUIPMENT:: Leticia owns a walker, a cane, and a toilet seat riser. She has a homemaker three days a week for two hours per day, in addition to MOW. PRIMARY CARE PHYSICIAN:: Lavelle Galindo POTENTIAL DISCHARGE NEEDS:: Evaluations for further needs, follow up appointments. PATIENT/FAMILY EDUCATION NEEDS:: Review of discharge instructions regarding medications, activity level, and follow up plan of care, and discussion of Ask Me [employer]. ANTICIPATED BARRIERS TO DISCHARGE:: None. TRANSPORTATION:: Via [facility] private vehicle. PLAN:: Leticia will be discharged home when medically cleared by provider. She will follow up with her community providers and plan of care as directed. Leticia will transport home via [facility] private vehicle coordinated by CM. CM will continue to support Leticia and any discharge planning needs.
[2022-10-18 17:50] LABS: Beta-Hydroxybutyrate 1.6 mmol/L (<0.4)
[2022-10-18] MEDS: LORazepam 1 MG TAB PO (20:23)
[2022-10-18] MEDS: Melatonin 3 MG TAB 6 MG PO (21:10)
[2022-10-18] MEDS: Mirtazapine 15 MG TAB 7.5 MG PO (21:11)
[2022-10-19 07:09] LABS: ALT 19 U/L (14-59); AST 44 U/L (15-37); Albumin 2.4 g/dL (3.4-5.0); Alkaline Phosphatase 118 U/L (46-116); Anion Gap 6.6 mmol/L (3-11); BUN 8 mg/dL (7-18); Bilirubin, Total 1.3 mg/dL (0.2-1.0); CO2 28.4 mmol/L (21.0-32.0); Calcium 8.3 mg/dL (8.5-10.1); Chloride 104 mmol/L (98-107); Estimated GFR 58.39 (mL/min/1.73m2); Glucose 113 mg/dL (74-106); Potassium 3.3 mmol/L (3.5-5.1); Sodium 139 mmol/L (136-145); Total Protein 4.6 g/dL (6.4-8.2)
[2022-10-19 07:47] VITALS: BP 167/108; PULSE 109; RESP 16; TEMP 37.2; O2SAT 92
[2022-10-19 07:48] VITALS: BP 158/92
[2022-10-19] MEDS: Budesonide 0.5 MG/2 ML UPD VIAL IH (08:38)
[2022-10-19] MEDS: Refresh PLUS Eye Drops 0.4ml OU ×4 (08:45→21:42)
[2022-10-19] MEDS: valACYclovir 500 MG TAB PO (08:46)
[2022-10-19] MEDS: Mirabegron 50 MG TABCR PO (08:46)
[2022-10-19] MEDS: QUEtiapine 25 MG TAB 12.5 MG PO ×2 (08:46→21:45)
[2022-10-19] MEDS: Thiamine 100 MG TAB PO (08:46)
[2022-10-19] MEDS: Venlafaxine 75 MG CAPCR PO (08:46)
[2022-10-19] MEDS: Aspirin E.C. 81 MG TABEC PO (08:46)
[2022-10-19] MEDS: Ferrous Sulfate 325 MG TAB PO (08:46)
[2022-10-19] MEDS: Normal Saline Flush 10 ML SYR IVP (08:46)
[2022-10-19] MEDS: Folic Acid 1 MG TAB PO (08:47)
[2022-10-19] MEDS: amLODIPine 10 MG TAB PO (08:47)
[2022-10-19] MEDS: busPIRone 5 MG TAB PO ×2 (08:47→21:42)
[2022-10-19] MEDS: Cyanocobalamin 500 MCG TAB 1000 MCG PO (08:47)
[2022-10-19] MEDS: Metoprolol 50 MG TAB PO (08:47)
[2022-10-19] MEDS: Multivitamin TAB 1 TAB PO (08:47)
[2022-10-19] MEDS: Sucralfate 1 GM TAB PO ×2 (08:47→16:13)
--- NOTE | 2022-10-19 08:48 | CMPROGNOTE_ITS ---
- If Service Date Differs Date of service: 10/19/22 Time of Service: 08:48 Care Management Progress Note S/O: Leticia is sitting in her recliner when CM met with her. She is awake and easily engages in conversation. Leticia reports that she receives MOW, but no other community services mostly because she is reluctant to let people in her home. She notes that her eyesight is impaired but she is planning on seeing Dr. Eric to talk about cataract surgery and has new eye glasses on order at [facility]. It sounds like when Kaci is home, she mostly just sits in her recliner in a darkened room and is bored. Leticia is closely followed in the community by her PCP and has community care coordination with [facility]. PT recommends Home with [facility] PT, when medically ready. A: 77 year old female admitted to [facility] on 10/17/22 for High anion gap acidosis P: Leticia will be discharged home with [facility], when medically cleared by provider. She will follow up with her community providers and plan of care as directed. Leticia will transport home via [facility] private vehicle coordinated by CM. CM will continue to support Leticia and any discharge planning needs.
--- NOTE | 2022-10-19 09:57 | IN_ITS ---
Date of service: 10/19/22 Time of Service: 09:34 PT Notes Visit Reasons: High Anion Gap Acidosis Inpatient Physical Therapy Evaluation Date: 10/19/2022 Referring Doctor:?Kimmy Sierra NP PT Orders: PT CONSULT:Eval/Treat. Precautions: Standard. Frequent falls.? Activity as tolerated. Patient Profile/Admitting Diagnosis:? Leticia is a 77-year-old female who presented to the Ed on 10/17/2022 due to nausea, vomitting, and decreased oral intake. Patient is admitted to [facility] for management of high anion gap metabolic acidosis, nausea, vomiting, hypokalemia, hypomagnesemia, and EtOH abuse. PMHX: All Active Problems?(Updated 10/17/22 @ 16:53 by Kimmy Sierra NP) DVT prophylaxis (Acute) Discharge planning issues (Acute) Nausea and vomiting (Acute) Hypomagnesemia (Acute) Nausea and vomiting (Acute) Sinus tachycardia (Acute) High anion gap metabolic acidosis (Acute) Elevated blood pressure reading with diagnosis of hypertension (Acute) Pincer nail deformity (Acute) Insomnia (Acute) Thrombocytopenia (Chronic) Elevated bilirubin (Acute) Mixed stress and urge urinary incontinence (Acute) Thyroid nodule (Acute) Anxiety (Chronic) Adverse effect of metronidazole (Acute) Medication monitoring encounter (Acute) Advance care planning (Acute) Cirrhosis of liver with ascites (Acute) Animal bite of right hand with infection (Acute) Umbilical hernia (Acute) Hyperbilirubinemia (Acute) Shortness of breath (Acute) Elevated blood pressure reading without diagnosis of hypertension (Acute) Left arm pain (Acute) Ambulatory dysfunction (Acute) Incontinence (Acute) Anorexia (Acute) Headache (Acute) Depression (Chronic) Chest pain (Acute) Foot pain, right (Acute) Tendinitis of left rotator cuff (Acute) Macrocytosis (Acute 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 Leukopenia (Acute) Headache (Acute) Epigastric abdominal pain (Acute) Calcific tendinitis of left shoulder (Acute) Pulmonary mass (Acute) spiculated mass Pneumonia (Acute) Depression with suicidal ideation (Acute) Alcohol abuse (Chronic) Diarrhea (Acute) Epigastric pain (Acute) Dehydration (Acute) Hypokalemia (Acute) Discharge planning issues (Acute) Palliative care patient (Acute) Difficult intravenous access (Acute) Multiple IV attempts, usually requires ultrasound placement. PTSD (post-traumatic stress disorder) (Acute) Anemia (Chronic) Depression (Chronic) Foot pain, right (Acute) T12 compression fracture (Acute) Presacral mass (Chronic) Deviated nasal septum (Acute) Frequent falls (Chronic) Head injury (Acute) Ambulatory dysfunction (Chronic) Shoulder pain, right (Chronic) Suicidal ideation (Acute) Dry eye (Acute) Pruritus (Acute) Dystrophic nail (Acute) AMBER (acute kidney injury) (Acute) Iron deficiency anemia (Chronic) Alcohol abuse (Chronic) Fall (Acute) Atelectasis of left lung (Chronic) Advance directive on file (Acute) Nodule of upper lobe of right lung (Acute ~09/13/18) 09/13/18 [facility]; 12mm SPICULATED -kb Cataract (Chronic 11/07/15) Hypertension (Chronic) high today; she will check readings at home Hyperlipidemia (Chronic) Back pain, chronic (Chronic) Depression (Chronic) Osteopenia (Chronic) Medical History?(Updated 10/17/22 @ 16:53 by Kimmy Sierra NP) Adjustment disorder with depressed mood Alcoholic ketosis Anemia Cervical radicular pain neck pain and DJD [facility] 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) pls refrain from alcohol Chronic alcoholism she will not stop drinking unless she checks with me, so that we can help her avert withdrawal I do not think she is capable on her own--she would need placement to achieve required goal of 3 months of sobrietyChronic diarrhea Closed right humeral fracture Corneal ulcer, right (~08/23/18) 08/23/18; [facility]-kbFracture of humerus, left, closed Genital herpes simplex recurrent gential; suppressive Valtrex GERD (gastroesophageal reflux disease) GI bleed (12/20/16) Hypertension Hypokalemia Hypomagnesemia Incidental lung nodule, greater than or equal to 8mm 1cm, spiculated, stable for many years, recommend f/u in 6 moMultiple rib fractures [facility]11[facility] [place] NEGATIVE MP Osteoarthritis Palliative care patient (03/21/17) Pancreatitis, alcoholic, acute Peripheral edema Photophobia of right eye Pleural effusion on left 03/11/19 [facility]resacral mass (~09/15/18) [facility], [facility] Tubular adenoma of colon (01/28/17) Urinary incontinence 01/24/13 urethral suspension and sling at [facility] (bladder suspension 1991) Vision loss of right eye 08/17/18;[facility]-kb Wernicke encephalopathy Surgical History?(Updated 10/17/22 @ 22:07 by Gwyn Blake MD) Colonoscopy - MAC (01/28/17) EGD - MAC (12/20/16) History of bilateral ligation of fallopian tubes History of Surgical Procedure a. Bladder repair. Repair bladder injury, simple S/P laparoscopic cholecystectomy (~05/19/22) Social History/Home Situation: Leticia lives in a private home in [place], [place]. ? She has a caregiver who comes in three times per week for 2 hours each time to assist with laundry, minor house chores, and grocery shopping.? Patient is independent with ADLs using a front-wheeled walker. She receives meals on wheels. She no longer drives. Sister lives 2 miles away and helps minimally, she is taking care of the patient's cat right now. Equipment Owned/DME: 3WW, FWW, SC, grab bars, emergency alert device Subjective: Nauseous but agreeable to walking. Reports fatigue and pain all over her body. Objective: General Observation:?Supine in bed. Appears fatigued but agreed to participation with encouragement. Mental Status: Alert and oriented. Aware of where she is. Unclear about time and date. Pain:Chronic body pain ROM: Right Upper Extremity: ? Shoulder Flexion allows up to 90 degrees. Shoulder abduction allows up to 70 degrees. Elbow flexion WFL. Wrist flexion WFL. Functional opening and closing of hand WFL. Left Upper Extremity: ? Shoulder Flexion allows up to 100 degrees. Shoulder abduction allows up to 90 degrees. Elbow flexion WFL. Wrist flexion WFL. Functional opening and closing of hand WFL. Right Lower Extremity: Hip flexion allows up to 20 degrees beyond 90 while seated at edge of bed. Hip abduction WFL. Knee flexion 30-90 degrees. Knee extension -30 degrees.? Ankle dorsiflexion WFL. Ankle plantarflexion WFL. Left Lower Extremity: Hip flexion allows up to 20 degrees beyond 90 while seated at edge of bed. Hip abduction WFL. Knee flexion 30-90 degrees. Knee extension - 30 degrees.? Ankle dorsiflexion WFL. Ankle plantarflexion WFL. Strength: Right Upper Extremity: Shoulder flexors 3-/5. Shoulder abductors 3-/5. Elbow flexors 4/5. Elbow extensors 4/5. Video Player Mechanic strong. Left Upper Extremity: Shoulder flexors 3-/5. Shoulder abductors 3-/5. Elbow flexors 4/5. Elbow extensors 4/5. Video Player Mechanic strong. Right Lower Extremity: Hip flexors 3-/5. Hip abductors 4-/5. Knee flexors 3-/5. Knee extensors 3-/5. Ankle dorsiflexors 4-/5. Ankle plantarflexors 4-/5. Left Lower Extremity: Hip flexors 3-/5. Hip abductors 4-/5. Knee flexors 3-/5. Knee extensors 3-/5. Ankle dorsiflexors 4-/5. Ankle plantarflexors 4-/5. Bed Mobility/Transfers: Supine to sit minimal assist with HOB at 40 degrees Sit to stand standby assist Stand to sit standby assist Bed to chair standby assist Gait: Patient exhibited gait for 50 feet requiring standby assist from PT using FWW.? Decreased violeta.? Decreased step length and height. No LOB. Reported fatigue which made her turn around back to her room after a distance of about 25 feet. Balance: Static Sitting: Good Dynamic Sitting: Fair Static Standing: Fair Dynamic Standing: Fair Special Tests: Mobility Limitations Standardized Measure [facility]-PAC 6 clicks Basic Mobility Inpatient Short Form: Raw Score: 22 ? CMS Score: 21% deficit Informed Consent/Education: Patient was instructed in purpose of PT consult and plan of care. Agreeable to proceed with established PT POC to achieve personal goals. Assessment: Patient presents with clinical signs and symptoms consistent with curre nt/admitting diagnoses that have resulted to mobility limitations, gait instability, generalized weakness, and impairment of motor control as demonstrated by the following impairment level findings: 1.? Decreased strength to B UE/LE major muscle groups 2.? Impaired static and dynamic standing balance Impairments are contributing to the following functional limitations: 2.? Inability to safely ambulate without assistive device 3.? Increase completion time for mobility ADL performance 4.? Increased fall risk Patient is assessed as a 66179 moderate complexity based on the following: History: 75-year-old female with impairment level findings, functional impairments, medical history, and [place] AM PAC deficit score of 47% Examination: Demonstrable impairment in strength, balance, and range of motion with underlying impairments and functional limitations as documented above Presentation: Evolving Decision Makin moderate complexity Goals: Goals X1 week 1. Supine-Sit independent 2. Sit-Supine independent 3. Sit-Stand independent 4. Stand-Sit independent 5. Bed-Chair independent 6. Chair-Bed independent 7.? Independent gait on level surface with use of straight cane for at least 100 feet without report of pain nor dyspnea 8.? Independent stair negotiation while holding onto bilateral rails for at least 5 steps without report of pain nor dyspnea 9. Good static and dynamic standing balance/tolerance DISCHARGE RECOMMENDATIONS: [] ? Home with no services [] [X] ? Home with services.? Home when medically cleared by hospitalist.? Patient will benefit from home health PT services in order to progress mobility level using least restrictive assistive ambulatory device, assess home safety, identify additional equipment needs, and establish a functional maintenance program that will increase ability of patient to remain at home. [] ? Home with outpatient PT [] [] ? SNF for continued rehabilitation [] [] ? [facility] [] [] ? SNF versus LTC based on ability to participate and progress [] TREATMENT CODE/TIME: 17625 x 20 minutes beginning at 9:34 AM. Thank you for the opportunity to participate in the care of this patient. Tawana Cruz PT, DPT, CLT [facility] [place], [place]
--- NOTE | 2022-10-19 12:52 | PT.INTREAT ---
Date of service: 10/19/22 Time of Service: 11:25 PT Notes Visit Reasons: High Anion Gap Acidosis Inpatient Physical Therapy Treatment Note [facility] Date: 10/19/2020 PRECAUTIONS: Activity as tolerated, fall SUBJECTIVE: Leticia reports that she is not feeling well this morning, she reports feeling dizzy and that her stomach is upset. She is agreeable to participating in PT. OBJECTIVE: PAIN: No c/o pain BED MOBILITY/TRANSFERS Supine-sit: CGA Sit-stand: SBA Stand-sit: SBA GAIT Assistive Device: FWW Weight bearing: Full Assist: SBA Distance: 50' x2 Deviation: Slow pacing, seated rest ASSESSMENT: Patient tolerated session without complaint of increased dizziness nor stomach pain. She was able to tolerate a slight progression in gait distance with FWW support and SBA. PLAN: Patient to discharge to home later today, per provider. Recommend HH PT upon discharge. TREATMENT CODE/TIME: 15 minutes; 81294 (11:25)
[2022-10-19] MEDS: Potassium Chloride Liquid 20 MEQ PKT PO (14:55)
[2022-10-19 15:03] VITALS: BP 128/76; PULSE 87; RESP 16; TEMP 36.6; O2SAT 93
--- NOTE | 2022-10-19 15:15 | W.PM.PROGNOT ---
Date of Service Date of service: 10/19/22 Time of Service: 15:15 Assessment and Plan Assessment and plan (1) Nausea and vomiting: Status: Resolved Assessment and plan: stop IV meds/access. continue oral antiemetics as needed lipase normal, ct unremarkable. continue advancing diet (2) Hypokalemia: Status: Acute Assessment and plan: replete, continue to follow (3) Hypomagnesemia: Status: Resolved Assessment and plan: Resolved After receiving 2 g of IV magnesium will start oral (4) Alcohol abuse: Status: Chronic Assessment and plan: No history of withdrawal No desire to stop drinking continue thiamine (5) DVT prophylaxis: Status: Acute Assessment and plan: teds (6) Discharge planning issues: Status: Acute Assessment and plan: palliative care consulted for continuity of care. patient wishes to be DNR/DNI as previous request. anticipate discharge to home tomorrow, +/- services. stating today she does not want services. discussed with DR Joy Subjective Subjective Patient reports: feels better, tolerating liquids well, voiding w/o difficulty, diarrhea, nausea and afebrile; denies tolerating a regular diet (reporting some nausea), vomiting or shortness of breath Exam Const General: cooperative, comfortable and no acute distress Nutritional Appearance: thin Orientation: alert, awake and oriented x3 HENDC Head: normal to inspection, normocephalic and atraumatic Mouth: oral mucosae normal Neck Neck: normal visual inspection Chest Chest: normal inspection of the chest Resp Effort & Inspection: normal respiratory effort and able to speak in complete sentences Cardio Rate: regular rate Rhythm: regular rhythm GI Inspection: normal to inspection Palpation: soft and no guarding Skin General skin exam: no rashes or lesions noted Neuro General: patient alert, patient awake, patient oriented x3 and no focal motor deficits Extrem General: normal to inspection and no pedal edema Objective Last Vital Signs Temp 36.6 C 10/19/22 15:03 Pulse 87 10/19/22 15:03 Resp 16 10/19/22 15:03 BP 128/76 10/19/22 15:03 Pulse Ox 93 10/19/22 15:03 Laboratory Results - last 24 hr 10/17/22 10/19/22 12:35 06:00 Sodium 139 Potassium 3.3 L Chloride 104 Carbon Dioxide 28.4 Anion Gap 6.6 BUN 8 Creatinine 1.0 Est GFR (CKD-EPI 2020) 58.39 Glucose 113 H Calcium 8.3 L Total Bilirubin 1.3 H AST 44 H ALT 19 Alkaline Phosphatase 118 H Total Protein 4.6 L Albumin 2.4 L B-Hydroxybutyrate 1.6 H PAWSS Have you Been Recently Intoxicated or Drunk Within the Last 30 days?: Unable to Obtain Have you Ever Experienced Previous Episodes of Alcohol Withdrawal?: Unable to Obtain Have you ever Experienced Withdrawal Seizures?: Unable to Obtain Have you ever Experienced Delirium Tremens(DT)s?: Unable to Obtain Have you ever undergone Alcohol Rehabilitation Treatment (i.e, inpt ot outpatient treatment programs)?: Yes Have you ever Experienced Blackouts?: No Have you ever Combined Alcohol with other Downers within the last 90 days?: No Have you ever Combined Alcohol with any other Substance of Abuse during the last 90 days?: No Positive Blood Alcohol level on Presentation? [PCS.BAL]: No Evidence of Increased Autonomic Activity (i.e. HR>120, tremor, sweating, agitation, nausea)?: Yes Result: 2 Time Spent with Patient Time Spent with Patient: 25-34 minutes Time was spent: preparing to see the patient(eg.review tests), obtaining and/or reviewing separately otained hiistory, ordering medications,tests, procedures, referring, communicating with other health farm or ranch animal caretaker, indepentently interpreting results and care coordination
[2022-10-19] MEDS: Furosemide 40 MG TAB PO (15:18)
[2022-10-19] MEDS: Spironolactone 50 MG TAB PO (15:18)
[2022-10-19] MEDS: Mirtazapine 15 MG TAB 7.5 MG PO (21:43)
[2022-10-19] MEDS: Magnesium Oxide 400 MG TAB PO (21:44)
[2022-10-19] MEDS: Pantoprazole 40 MG TABCR PO (21:45)
[2022-10-19] MEDS: LORazepam 1 MG TAB PO (21:58)
[2022-10-19 23:57] VITALS: BP 130/75; PULSE 88; RESP 16; TEMP 36.9; O2SAT 93
[2022-10-20 07:08] VITALS: BP 136/85; PULSE 97; RESP 16; TEMP 36.6; O2SAT 98
[2022-10-20 07:55] VITALS: PULSE 105; RESP 2; RESP 20; RESP 8; O2SAT 97
[2022-10-20] MEDS: Albuterol/Ipratropium 3 ML UPD VIAL IH (07:55)
[2022-10-20 08:05] VITALS: PULSE 100; RESP 2; RESP 20; RESP 8; O2SAT 98
[2022-10-20] MEDS: Budesonide 0.5 MG/2 ML UPD VIAL IH (08:40)
--- NOTE | 2022-10-20 09:09 | PDOC.CMPRO ---
- If Service Date Differs Date of service: 10/20/22 Time of Service: 09:09
[2022-10-20] MEDS: Refresh PLUS Eye Drops 0.4ml OU (09:19)
[2022-10-20] MEDS: busPIRone 5 MG TAB PO (09:19)
[2022-10-20] MEDS: Mirabegron 50 MG TABCR PO (09:19)
[2022-10-20] MEDS: QUEtiapine 25 MG TAB 12.5 MG PO (09:19)
[2022-10-20] MEDS: Potassium Chloride Liquid 20 MEQ PKT PO (09:19)
[2022-10-20] MEDS: Aspirin E.C. 81 MG TABEC PO (09:20)
[2022-10-20] MEDS: Ferrous Sulfate 325 MG TAB PO (09:20)
[2022-10-20] MEDS: Pantoprazole 40 MG TABCR PO (09:20)
[2022-10-20] MEDS: Thiamine 100 MG TAB PO (09:20)
[2022-10-20] MEDS: valACYclovir 500 MG TAB PO (09:20)
[2022-10-20] MEDS: Venlafaxine 75 MG CAPCR PO (09:20)
[2022-10-20] MEDS: Sucralfate 1 GM TAB PO (09:20)
[2022-10-20] MEDS: Spironolactone 50 MG TAB PO (09:20)
[2022-10-20] MEDS: Cyanocobalamin 500 MCG TAB 1000 MCG PO (09:20)
[2022-10-20] MEDS: Magnesium Oxide 400 MG TAB PO (09:20)
[2022-10-20] MEDS: Folic Acid 1 MG TAB PO (09:20)
[2022-10-20] MEDS: amLODIPine 10 MG TAB PO (09:20)
[2022-10-20] MEDS: Furosemide 20 MG TAB 60 MG PO (09:20)
[2022-10-20] MEDS: Multivitamin TAB 1 TAB PO (09:20)
[2022-10-20] MEDS: Metoprolol 50 MG TAB PO (09:20)
--- NOTE | 2022-10-20 10:55 | W.PM.DS.N ---
Date of service: 10/20/22 Time of Service: 11:00 DS: Diagnosis Discharge Diagnosis (1) Nausea and vomiting: Status: Resolved Asessment and Plan: IV hydration, anti-emetics - able to tolerate oral - discharge with oral zofran (2) Hypokalemia: Status: Resolved Asessment and Plan: secondary to GI losses, repleted (3) Hypomagnesemia: Status: Resolved Asessment and Plan: secondary to GI losses, repleted (4) Alcohol abuse: Status: Chronic Discharge Plan Disposition Patient Disposition: Home Condition: Fair Discharge Details Reason For Visit: High Anion Gap Acidosis Admit Date/Time: 10/17/22 16:00 Admit Provider: Gwyn Blake Attending Provider: Gwyn Blake Primary Care Provider: Lavelle Galindo Hospital Course Hospital Course: This is a 77-year-old female patient with a past medical history for alcohol abuse cirrhosis of the liver and pancreatitis who presented to the [facility] emergency department on 10/18/2022 by EMS after a 3-day history of nausea, vomiting and being unable to take anything oral without vomiting. In the ED, she presented hypertensive and tachycardic which is consistent with previous presentations and in addition to some dehydration due to inability to take her medications which include beta-j luis and calcium channel j luis.? She was given 2 L of IV fluid in the emergency department with some improvement in her symptoms but she remained with a high anion gap and metabolic acidosis, other labs noted was a magnesium level of 1.4 this was repleted with 2 g of IV magnesium.? She received IV Zofran with resolution of her nausea.? Last alcoholic beverage was reported as 3 days prior to date of admission.? She has no subjective history of withdrawal symptoms or seizures.? No source of infection was identified. She was placed on observation on the medical floor for hydration and further monitoring. She was given IV hydration, her magnesium was repleted and she was able to tolerate oral fluids and solids.? She was seen by palliative care and her code status was reconfirmed to be DNR/DNI.? This is noted on her chart.? She has no new complaints, feels better, pain is less, tolerating liquids well, voiding w/o difficulty and afebrile; denies shortness of breath.? She is being discharged to home, stable. She declines all home health services. ? Discussed with Dr Joy Home Meds and New Rx's Prescriptions: New ondansetron HCl 4 mg Tablet 4 mg PO Q4H PRN PRNQty: 20 0RF Continued Xiidra 5 % dropperette 1 drp ophthalmic (eye) BID Rx Instructions: administer approximately 12 hours apart budesonide [Pulmicort] 0.5 mg/2 mL suspension for nebulization 0.5 mg inhalation DAILY Qty: 60 5RF Patient Comments: pt states meds come in blister pack labeled daily by [facility] and she takes them but doesn't know the names furosemide 20 mg tablet See Rx Instructions PO BID Qty: 180 3RF Patient Comments: pt states meds come in blister pack labeled daily by [facility] and she takes them but doesn't know the names Rx Instructions: orally twice a day; 3 tabs (60mg) in AM and 2 tabs(40mg in afternoon; ipratropium-albuterol 0.5 mg-3 mg(2.5 mg base)/3 mL solution for nebulization 3 ml inhalation Q6H PRN Patient Comments: pt states meds come in blister pack labeled daily by [facility] and she takes them but doesn't know the names Myrbetriq 50 mg tablet extended release 24 hr 50 mg PO DAILY Qty: 30 12RF lorazepam 1 mg tablet 0.5 - 1 mg PO QHS PRN (Reason: sleep) Qty: 20 0RF Patient Comments: pt states meds come in blister pack labeled daily by [facility] and she takes them but doesn't know the names albuterol sulfate [Ventolin HFA] 90 mcg/actuation HFA aerosol inhaler 2 puff inhalation QID PRN (Reason: shortness of breath or wheezing) Qty: 8.5 1RF amlodipine 10 mg tablet 10 mg PO DAILY Qty: 90 3RF Patient Comments: pt states meds come in blister pack labeled daily by [facility] and she takes them but doesn't know the names buspirone 5 mg tablet 5 mg PO BID Qty: 60 5RF Patient Comments: pt states meds come in blister pack labeled daily by [facility] and she takes them but doesn't know the names folic acid 1 mg tablet 1 mg PO DAILY Qty: 90 3RF Patient Comments: pt states meds come in blister pack labeled daily by [facility] and she takes them but doesn't know the names melatonin 3 mg capsule 6 mg PO HS Qty: 180 3RF Patient Comments: pt states meds come in blister pack labeled daily by [facility] and she takes them but doesn't know the names metoprolol tartrate 50 mg tablet 50 mg PO DAILY Qty: 90 3RF Patient Comments: pt states meds come in blister pack labeled daily by [facility] and she takes them but doesn't know the names mirtazapine 7.5 mg tablet 7.5 mg PO QHS Qty: 90 4RF Patient Comments: pt states meds come in blister pack labeled daily by [facility] and she takes them but doesn't know the names sucralfate 1 gram tablet 1 g PO BID Qty: 60 11RF Patient Comments: pt states meds come in blister pack labeled daily by [facility] and she takes them but doesn't know the names thiamine HCl (vitamin B1) 100 mg tablet 100 mg PO DAILY Qty: 90 3RF Patient Comments: pt states meds come in blister pack labeled daily by [facility] and she takes them but doesn't know the names valacyclovir [Valtrex] 500 mg tablet 500 mg PO DAILY Qty: 90 3RF Patient Comments: pt states meds come in blister pack labeled daily by [facility] and she takes them but doesn't know the names Rx Instructions: Take 500 mg BID for 3 days, then take daily fluticasone propionate 50 mcg/actuation spray,suspension 2 spray NS daily prn Qty: 16 5RF Patient Comments: pt states meds come in blister pack labeled daily by [facility] and she takes them but doesn't know the names cyanocobalamin (vitamin B-12) [Vitamin B-12] 500 mcg tablet 1,000 mcg PO DAILY Qty: 180 3RF Patient Comments: pt states meds come in blister pack labeled daily by [facility] and she takes them but doesn't know the names ferrous sulfate 325 mg (65 mg iron) tablet 325 mg PO BID Qty: 180 3RF Patient Comments: pt states meds come in blister pack labeled daily by [facility] and she takes them but doesn't know the names Rx Instructions: do not take within 2 hours of antibiotics multivitamin [Multiple Vitamins] Tablet 1 tab PO DAILY Qty: 90 3RF Patient Comments: pt states meds come in blister pack labeled daily by [facility] and she takes them but doesn't know the names quetiapine 25 mg tablet See Rx Instructions PO BID Qty: 60 5RF Patient Comments: pt states meds come in blister pack labeled daily by [facility] and she takes them but doesn't know the names Rx Instructions: 0.5 tab PO twice a day; spironolactone [Aldactone] 50 mg tablet 50 mg PO BID Qty: 180 3RF Patient Comments: pt states meds come in blister pack labeled daily by [facility] and she takes them but doesn't know the names venlafaxine 75 mg capsule,extended release 24hr 75 mg PO DAILY Qty: 90 3RF Hold Instructions: Home Medication placed on hold at Doctor's office Patient Comments: pt states meds come in blister pack labeled daily by [facility] and she takes them but doesn't know the names. aspirin 81 mg tablet,delayed release (DR/EC) 81 mg PO DAILY Qty: 90 3RF Patient Comments: pt states meds come in blister pack labeled daily by [facility] and she takes them but doesn't know the names ondansetron 4 mg tablet,disintegrating 4 mg PO Q8H PRN (Reason: nausea and vomiting) Qty: 20 2RF carboxymethylcellulose sodium [Refresh Plus] 0.5 % Dropperette 1 drp OU Q4H WHILE AWAKE Qty: 30 0RF Patient Comments: pt states meds come in blister pack labeled daily by [facility] and she takes them but doesn't know the names pantoprazole 40 mg Tablet,Delayed Release (Dr/Ec) 40 mg PO BID@ Qty: 60 0RF Patient Comments: pt states meds come in blister pack labeled daily by [facility] and she takes them but doesn't know the names ondansetron 4 mg tablet,disintegrating 4 mg PO TID PRN (Reason: nausea and vomiting) Qty: 6 0RF ondansetron 4 mg tablet,disintegrating 4 mg PO Q8H PRN (Reason: nausea and vomiting) Qty: 10 0RF Discharge Instructions Instructions: Hypokalemia (DC) Stand Alone Forms: Nursing Discharge Form Referrals: Lavelle Galindo MD [Primary Care Provider] - 10/28/22 11:00 am Activity:: Activity as Tolerated Equipment/Supplies:: No Equipment Needed Diet:: Carb Counting Discharge Orders Discharge Orders: Discharge Order (Routine); Ordered 10/20/22 Ordered By: Jerica Diez Discharge Data Discharge Date/Time-TO BE ENTERED AT DEPARTURE: 10/20/22 12:55 DS: Summary Time Spent with Patient providing and/or coordinating discharge services: Greater than 30 minutes Status at Discharge Functional status at discharge: uses cane/walker Overall status at discharge: patient is back to baseline Mental Status: mental status grossly normal Speech and Movement: speech and movement normal Mood: congruent mood Affect: normal affect Exam Const General: cooperative, comfortable and no acute distress Nutritional Appearance: thin Orientation: alert, awake and oriented x3 HENMT Head: normal to inspection, normocephalic and atraumatic Mouth: oral mucosae normal Neck Neck: normal visual inspection Chest Chest: normal inspection of the chest Resp Effort & Inspection: normal respiratory effort and able to speak in complete sentences Cardio Rate: regular rate Rhythm: regular rhythm GI Inspection: distended (ascites) Palpation: soft and no guarding Skin General skin exam: no rashes or lesions noted Neuro General: patient alert, patient awake, patient oriented x3 and no focal motor deficits Extrem General: normal to inspection and no pedal edema Psych Mental Status: mental status grossly normal Speech and Movement: speech and movement normal Mood: congruent mood Affect: normal affect DS: Data Vitals/I&O Vitals and I&O: Vital Signs Temperature 36.6 C 10/20/22 07:08 Temperature Source Tympanic 10/20/22 07:08 Pulse 100 H 10/20/22 08:05 Pulse Rhythm Regular 10/20/22 09:20 Pulse 115 H 10/17/22 16:01 Respiratory Rate 20 10/20/22 08:05 Respiratory Effort Normal, Non-Labored 10/20/22 09:20 Respiratory Depth Normal 10/20/22 09:20 Respiratory Pattern Normal 10/20/22 09:20 Blood Pressure 136/85 10/20/22 07:08 Blood Pressure Mean 106 10/17/22 16:01 Pulse Oximetry 98 10/20/22 08:05 Oxygen Delivery Method Room Air 10/20/22 07:55 Oxygen Flow Rate 0 10/20/22 07:55 Pain Level 0 10/19/22 23:57 Comment pain states she feels nauseous when she eats; not nauseous when not eating 10/19/22 15:03 Intake & Output 10/19/22 10/19/22 10/20/22 11:59 23:59 11:59 Intake Total 610 / 850 240 / 850 Output Total 325 / 575 250 / 575 300 / 300 Balance 285 / 275 -10 / 275 -300 / -300 Intake: IV Oral 600 / 840 240 / 840 Output: Urine 325 / 575 250 / 575 300 / 300 Other: Urine Color Yellow Light Nguyen Yellow Straw Urine Appearance Clear Clear Urine Odor Strong Normal Comment pT incontinent pt was fully incontinent patient was incont and voided in commode Stool Size Moderate Moderate Stool Characteristics Soft Soft Formed Brown Brown Black Voiding Methods Bedside Commode Bedside Commode Diaper Diaper Diaper Incontinent Incontinent Incontinent PFSH All Active Problems (Updated 10/20/22 @ 17:09 by Jerica Diez NP) DVT prophylaxis (Acute) Discharge planning issues (Acute) Hypomagnesemia (Acute) Nausea and vomiting (Acute) Sinus tachycardia (Acute) High anion gap metabolic acidosis (Acute) Elevated blood pressure reading with diagnosis of hypertension (Acute) Pincer nail deformity (Acute) Insomnia (Acute) Thrombocytopenia (Chronic) Elevated bilirubin (Acute) Mixed stress and urge urinary incontinence (Acute) Thyroid nodule (Acute) Anxiety (Chronic) Adverse effect of metronidazole (Acute) Medication monitoring encounter (Acute) Advance care planning (Acute) Cirrhosis of liver with ascites (Acute) Animal bite of right hand with infection (Acute) Umbilical hernia (Acute) Hyperbilirubinemia (Acute) Shortness of breath (Acute) Elevated blood pressure reading without diagnosis of hypertension (Acute) Left arm pain (Acute) Ambulatory dysfunction (Acute) Incontinence (Acute) Anorexia (Acute) Headache (Acute) Depression (Chronic) Chest pain (Acute) Foot pain, right (Acute) Tendinitis of left rotator cuff (Acute) Macrocytosis (Acute 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 Leukopenia (Acute) Headache (Acute) Epigastric abdominal pain (Acute) Calcific tendinitis of left shoulder (Acute) Pulmonary mass (Acute) spiculated mass Pneumonia (Acute) Depression with suicidal ideation (Acute) Alcohol abuse (Chronic) Diarrhea (Acute) Epigastric pain (Acute) Dehydration (Acute) Discharge planning issues (Acute) Palliative care patient (Acute) Difficult intravenous access (Acute) Multiple IV attempts, usually requires ultrasound placement. PTSD (post-traumatic stress disorder) (Acute) Anemia (Chronic) Depression (Chronic) Foot pain, right (Acute) T12 compression fracture (Acute) Presacral mass (Chronic) Deviated nasal septum (Acute) Frequent falls (Chronic) Head injury (Acute) Ambulatory dysfunction (Chronic) Shoulder pain, right (Chronic) Suicidal ideation (Acute) Dry eye (Acute) Pruritus (Acute) Dystrophic nail (Acute) AMBER (acute kidney injury) (Acute) Iron deficiency anemia (Chronic) Alcohol abuse (Chronic) Fall (Acute) Atelectasis of left lung (Chronic) Advance directive on file (Acute) Nodule of upper lobe of right lung (Acute ~09/13/18) 09/13/18 [facility]; 12mm SPICULATED -kb Cataract (Chronic 11/07/15) Hypertension (Chronic) high today; she will check readings at home Hyperlipidemia (Chronic) Back pain, chronic (Chronic) Depression (Chronic) Osteopenia (Chronic) Medical History (Updated 10/20/22 @ 17:09 by Jerica Diez NP) Adjustment disorder with depressed mood Alcoholic ketosis Anemia Cervical radicular pain neck pain and DJD [facility] 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) pls refrain from alcohol Chronic alcoholism she will not stop drinking unless she checks with me, so that we can help her avert withdrawal I do not think she is capable on her own--she would need placement to achieve required goal of 3 months of sobriety Chronic diarrhea Closed right humeral fracture Corneal ulcer, right (~08/23/18) 08/23/18; [facility] Fracture of humerus, left, closed Genital herpes simplex recurrent gential; suppressive Valtrex GERD (gastroesophageal reflux disease) GI bleed (12/20/16) Hypertension Hypokalemia Hypomagnesemia Incidental lung nodule, greater than or equal to 8mm 1cm, spiculated, stable for many years, recommend f/u in 6 mo Multiple rib fractures 03/11/19 [facility] Non-cardiac chest pain (09/21/16) [facility]/21[place]16 NEGATIVE MP Osteoarthritis Palliative care patient (03/21/17) Pancreatitis, alcoholic, acute Peripheral edema Photophobia of right eye Pleural effusion on left 7/14/19 [facility] Presacral mass (~09/15/18) 09/15/18 [facility] Sciatica right, epidural injuections [facility] Tubular adenoma of colon (01/28/17) Urinary incontinence 01/24/13 urethral suspension and sling at [facility] [place] (bladder suspension 1991) Vision loss of right eye 08/17/18;[facility] Wernicke encephalopathy Surgical History (Updated 10/17/22 @ 22:07 by Gwyn Blake MD) Colonoscopy - MAC (01/28/17) EGD - MAC (12/20/16) History of bilateral ligation of fallopian tubes History of Surgical Procedure a. Bladder repair. Repair bladder injury, simple S/P laparoscopic cholecystectomy (~05/19/22) Family History Mother No problems noted. Father , DROWNED at age 50. No problems noted. Sister Personal history of malignant neoplasm MELANOMA Sister No problems noted. Grandfather Personal history of malignant neoplasm STOMACH Grandfather Personal history of malignant neoplasm PROSTATE Grandmother Heart disease [place] Acute ill-defined cerebrovascular disease Grandmother Personal history of malignant neoplasm UTERINE Aunt , [place] Heart disease [place] Aunt , [place] Heart disease Brother No problems noted. Social History (Updated 10/06/22 @ 12:01 by Margaret Kinney RN) Smoking/Tobacco Use Status: Former Tobacco Use Quit Date: 08/29/80 Smoking risk assessment performed?: Yes Alcohol Intake: current Alcohol Intake frequency: 3 or more drinks per day Alcohol type: hard liquor Drug use: Never Substance use type: does not use Details: Last alcoholic drink Mike zhong, 2 days ago Current gender identity: female Do you feel safe at home: Yes Do you feel safe in your relationship?: No Additional Social history: Has 1 dog, 4 cats. Time Spent with Patient Time Spent with Patient: 45-69 minutes Time was spent: preparing to see the patient(eg.review tests), referring, communicating with other health health care consultant and counseling the patient
--- NOTE | 2022-10-20 11:23 | PDOC.CMDIS ---
- If Service Date Differs Date of service: 10/20/22 Time of Service: 11:23 LACE Index Scoring Tool - Questions: Length of Stay (in days): 3 Acuity (Admit via E.D.?): Yes E.D. Visits: 17 - Answers: Total Score: 10 Risk of Readmission: High Risk Care Management Discharge Reason for Hospitalization: High anion gap acidosis Discharge Plan: Leticia is medically cleared for discharge and is discharged to home via [facility] private vehicle. Leticia will follow up with community providers and discharge plan of care as prescribed. New RX is transmitted to [facility] Hospital follow up with primary care on 10/28/22, as scheduled. No new H PT services are ordered at patients request. Patient/Family Education Needs: Review discharge instructions, limitations and plan to follow up with community providers. Discuss ask me three. Services Needed at Discharge: Home Health Care Services ([facility] PT, pt refuses), Transportation ([facility] private vehicle)
--- NOTE | 2022-10-20 11:46 | PT.INTREAT ---
PT Notes Visit Reasons: High Anion Gap Acidosis PRECAUTIONS: Activity as tolerated, fall SUBJECTIVE: Pt in bed when approached for therapy this morning, Pt pleasant and agreeable to therapy. OBJECTIVE: ? PAIN: No c/o pain ? BED MOBILITY/TRANSFERS? Supine-sit: SBA Sit-stand: CGA? Stand-sit: CGA ? EOB to supine: min A for BLE elevation to get centered in bed ? GAIT? Assistive Device: FWW? Weight bearing: Full Assist: SBA? Distance:? 100' x2 ? Deviation: Slow pacing, standing rest break with wall lean at 50' paul. ASSESSMENT: Patient tolerated session with complaint of dizziness initially, dizziness went away after standing for a minute or so.? She was able to tolerate a slight progression in gait distance with FWW support and SBA. PLAN: Continue with global strengthening and general conditioning for improved mobility and activity tolerance. TREATMENT CODE/TIME: 30 minutes; 13263 (9:30-10:00am)
--- NOTE | 2022-11-02 18:19 | PT.INDS ---
Date of service: 11/02/22 PT Notes Visit Reasons: High Anion Gap Acidosis Physical Therapy Inpatient Discharge Summary Date: Dates of service: 10/19/2022 through 10/20/2022 This is a clinical summary of care provided for the duration of dates listed above. No charge was made in the completion of this documentation. Referring Doctor:?Kimmy Sierra,? HEAD OF BUSINESS DEVELOPMENT PT Orders: PT CONSULT:Eval/Treat. Precautions: Standard. Frequent falls.? Activity as tolerated. Patient Profile/Admitting Diagnosis:? Leticia is a 77-year-old female who presented to the Ed on 10/17/2022 due to nausea, vomitting, and decreased oral intake. ? Patient is admitted to [facility] for management of high anion gap metabolic acidosis, nausea, vomiting, hypokalemia, hypomagnesemia, and EtOH abuse. PMHX: All Active Problems?(Updated 10/17/22 @ 16:53 by Kimmy Sierra NP) DVT prophylaxis (Acute) Discharge planning issues (Acute) Nausea and vomiting (Acute) Hypomagnesemia (Acute) Nausea and vomiting (Acute) Sinus tachycardia (Acute) High anion gap metabolic acidosis (Acute) Elevated blood pressure reading with diagnosis of hypertension (Acute) Pincer nail deformity (Acute) Insomnia (Acute) Thrombocytopenia (Chronic) Elevated bilirubin (Acute) Mixed stress and urge urinary incontinence (Acute) Thyroid nodule (Acute) Anxiety (Chronic) Adverse effect of metronidazole (Acute) Medication monitoring encounter (Acute) Advance care planning (Acute) Cirrhosis of liver with ascites (Acute) Animal bite of right hand with infection (Acute) Umbilical hernia (Acute) Hyperbilirubinemia (Acute) Shortness of breath (Acute) Elevated blood pressure reading without diagnosis of hypertension (Acute) Left arm pain (Acute) Ambulatory dysfunction (Acute) Incontinence (Acute) Anorexia (Acute) Headache (Acute) Depression (Chronic) Chest pain (Acute) Foot pain, right (Acute) Tendinitis of left rotator cuff (Acute) Macrocytosis (Acute 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 Leukopenia (Acute) Headache (Acute) Epigastric abdominal pain (Acute) Calcific tendinitis of left shoulder (Acute) Pulmonary mass (Acute) spiculated mass Pneumonia (Acute) Depression with suicidal ideation (Acute) Alcohol abuse (Chronic) Diarrhea (Acute) Epigastric pain (Acute) Dehydration (Acute) Hypokalemia (Acute) Discharge planning issues (Acute) Palliative care patient (Acute) Difficult intravenous access (Acute) Multiple IV attempts, usually requires ultrasound placement. PTSD (post-traumatic stress disorder) (Acute) Anemia (Chronic) Depression (Chronic) Foot pain, right (Acute) T12 compression fracture (Acute) Presacral mass (Chronic) Deviated nasal septum (Acute) Frequent falls (Chronic) Head injury (Acute) Ambulatory dysfunction (Chronic) Shoulder pain, right (Chronic) Suicidal ideation (Acute) Dry eye (Acute) Pruritus (Acute) Dystrophic nail (Acute) AMBER (acute kidney injury) (Acute) Iron deficiency anemia (Chronic) Alcohol abuse (Chronic) Fall (Acute) Atelectasis of left lung (Chronic) Advance directive on file (Acute) Nodule of upper lobe of right lung (Acute ~09/13/18) 09/13/18 [facility]; 12mm SPICULATED -kb Cataract (Chronic 11/07/15) Hypertension (Chronic) high today; she will check readings at home Hyperlipidemia (Chronic) Back pain, chronic (Chronic) Depression (Chronic) Osteopenia (Chronic) Medical History?(Updated 10/17/22 @ 16:53 by Kimmy Sierra NP) Adjustment disorder with depressed mood Alcoholic ketosis Anemia Cervical radicular pain neck pain and DJD [facility] 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) pls refrain from alcohol Chronic alcoholism she will not stop drinking unless she checks with me, so that we can help her avert withdrawal I do not think she is capable on her own--she would need placement to achieve required goal of 3 months of sobrietyChronic diarrhea Closed right humeral fracture Corneal ulcer, right (~08/23/18) 08/23/18; [facility]Fracture of humerus, left, closed Genital herpes simplex recurrent gential; suppressive Valtrex GERD (gastroesophageal reflux disease) GI bleed (12/20/16) Hypertension Hypokalemia Hypomagnesemia Incidental lung nodule, greater than or equal to 8mm 1cm, spiculated, stable for many years, recommend f/u in 6 moMultiple rib fractures 03/11/19 [facility] 09/21/16 NEGATIVE MP Osteoarthritis Palliative care patient (03/21/17) Pancreatitis, alcoholic, acute Peripheral edema Photophobia of right eye Pleural effusion on left 03/11/19 [facility], [facility] Tubular adenoma of colon (01/28/17) Urinary incontinence 01/24/13 urethral suspension and sling at [facility] (bladder suspension 1991) 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(Updated 10/17/22 @ 22:07 by Gwyn Blake MD) Colonoscopy - [facility] (01/28/17) EGD - [facility] (12/20/16) History of bilateral ligation of fallopian tubes History of Surgical Procedure a. Bladder repair. Repair bladder injury, simple S/P laparoscopic cholecystectomy (~05/19/22) Social History/Home Situation: Leticia lives in a private home in [place], [place]. ? She has a caregiver who comes in three times per week for 2 hours each time to assist with laundry, minor house chores, and grocery shopping.? Patient is independent with ADLs using a front-wheeled walker. She receives meals on wheels. She no longer drives.? Sister lives 2 miles away and helps minimally,? she is taking care of the patient's cat right now. Equipment Owned/DME: 3WW, FWW, SC, grab bars, emergency alert device Subjective: NT. See most recent BROWNING PROCESSOR notes. Objective: General Observation:?NT. See most recent BROWNING PROCESSOR notes. Mental Status: NT. See most recent BROWNING PROCESSOR notes. Pain: NT. See most recent BROWNING PROCESSOR notes. ROM: Right Upper Extremity: ? Shoulder Flexion allows up to 90 degrees. Shoulder abduction allows up to 70 degrees. Elbow flexion WFL. Wrist flexion WFL. Functional opening and closing of hand WFL. Left Upper Extremity: ? Shoulder Flexion allows up to 100 degrees. Shoulder abduction allows up to 90 degrees. Elbow flexion WFL. Wrist flexion WFL. Functional opening and closing of hand WFL. Right Lower Extremity: Hip flexion allows up to 20 degrees beyond 90 while seated at edge of bed. Hip abduction WFL. Knee flexion 30-90 degrees. Knee extension -30 degrees.? Ankle dorsiflexion WFL. Ankle plantarflexion WFL. Left Lower Extremity: Hip flexion allows up to 20 degrees beyond 90 while seated at edge of bed. Hip abduction WFL. Knee flexion 30-90 degrees. Knee extension -30 degrees.? Ankle dorsiflexion WFL. Ankle plantarflexion WFL. Strength: Right Upper Extremity: Shoulder flexors 3-/5. Shoulder abductors 3-/5. Elbow flexors 4/5. Elbow extensors 4/5. Document Control Assistant strong. Left Upper Extremity: Shoulder flexors 3-/5. Shoulder abductors 3-/5. Elbow flexors 4/5. Elbow extensors 4/5. Document Control Assistant strong. Right Lower Extremity: Hip flexors 3-/5. Hip abductors 4-/5. Knee flexors 3-/5. Knee extensors 3-/5. Ankle dorsiflexors 4-/5. Ankle plantarflexors 4-/5. Left Lower Extremity: Hip flexors 3-/5. Hip abductors 4-/5. Knee flexors 3-/5. Knee extensors 3-/5. Ankle dorsiflexors 4-/5. Ankle plantarflexors 4-/5. Bed Mobility/Transfers: Supine to sit minimal assist with HOB at 40 degrees Sit to stand standby assist Stand to sit standby assist Bed to chair standby assist Gait: Patient exhibited gait for 50 feet requiring standby assist from PT using FWW.? Decreased violeta.? Decreased step length and height. No LOB.? Reported fatigue which made her turn around back to her room after a distance of about 25 feet. Balance: Static Sitting: Good Dynamic Sitting: Fair Static Standing: Fair Dynamic Standing: Fair Assessment: Patient presents with clinical signs and symptoms consistent with current/admitting diagnoses that have resulted to mobility limitations, gait instability, generalized weakness, and impairment of motor control as demonstrated by the following impairment level findings: 1.? Decreased strength to B UE/LE major muscle groups 2.? Impaired static and dynamic standing balance Impairments are contributing to the following functional limitations: 2.? Inability to safely ambulate without assistive device 3.? Increase completion time for mobility ADL performance 4.? Increased fall risk Goals: Goals X1 week 1. Supine-Sit independent NOT MET 2. Sit-Supine independent NOT MET 3. Sit-Stand independent NOT MET 4. Stand-Sit independent NOT MET 5. Bed-Chair independent NOT MET 6. Chair-Bed independent NOT MET 7.? Independent gait on level surface with use of straight cane for at least 100 feet without report of pain nor dyspnea NOT MET 8.? Independent stair negotiation while holding onto bilateral rails for at least 5 steps without report of pain nor dyspnea NOT MET 9. Good static and dynamic standing balance/tolerance NOT MET DISCHARGE RECOMMENDATIONS: [] ? Home with no services [] [X] ? Home with services.? Home when medically cleared by hospitalist.? Patient will benefit from home health PT services in order to progress mobility level using least restrictive assistive ambulatory device, assess home safety, identify additional equipment needs, and establish a functional maintenance program that will increase ability of patient to remain at home. [] ? Home with outpatient PT [] [] ? SNF for continued rehabilitation [] [] ? Snf Care [] [] ? SNF versus LTC based on ability to participate and progress [] TREATMENT CODE/TIME: JAMES Thank you for the opportunity to participate in the care of this patient. Tawana Cruz PT, DPT, CLT [facility] [place], [place]
== END 2022-10-20 12:55 | disposition home or self-care (01) ==
LOC: ER 13:29 → MS 16:49
PROVIDERS: Nurse Practitioner Acute Care; Admitting Provider Internal Medicine; Emergency Provider Emergency Medicine; PCP Family Medicine; Visit Provider Internal Medicine
DX: E87.29 Other acidosis (principal); E86.0 Dehydration; R11.2 Nausea with vomiting, unspecified; E83.42 Hypomagnesemia; E87.6 Hypokalemia; R18.8 Other ascites; K74.60 Unspecified cirrhosis of liver; R00.0 Tachycardia, unspecified; I10 Essential (primary) hypertension; R73.9 Hyperglycemia, unspecified; Z20.822 Contact with and (suspected) exposure to COVID-19; E78.5 Hyperlipidemia, unspecified; G47.00 Insomnia, unspecified; D69.6 Thrombocytopenia, unspecified; F32.A Depression, unspecified; N39.46 Mixed incontinence; D50.9 Iron deficiency anemia, unspecified; F10.10 Alcohol abuse, uncomplicated; Z79.899 Other long term (current) drug therapy
CPT/HCPCS: 36415; 80048; 80053; 80076; 82550; 82805; 83690; 84145; 87635; 93005; 96361; 96365; 96366; 96367; 96368; 96375; 96376; 97162; 97530; 99285; 74177; 76705; 80320; 81003; 81015; 82010; 83036; 83605; 83735; 85025; 93010; 94640; 99223; 99232; 99233; 99239; G0378; J1790; J2405; J3360; J3475; J3480; J3490; J7620; J7626

== ENCOUNTER 2022-11-14 23:05 | Emergency (ER) | payer MEDICARE, SELFPAY ==
[2022-11-14 23:05] VITALS: BP 152/81; PULSE 90; RESP 18; TEMP 37; O2SAT 96
--- NOTE | 2022-11-14 23:30 | DI.RAD_ITS ---
Exam(s) XR SHOULDER RT COMPLETE 2+V EXAM: XR SHOULDER RT COMPLETE 2+V CLINICAL HISTORY: s/p fall, r/o fracture. TECHNIQUE: 2D digital imaging was performed. COMPARISON: CR XR SHOULDER RT COMPLETE 2+V from 12/16/2020 FINDINGS: 3 views There is an acute fracture in the superior aspect of humeral head. This is superimposed upon chronic changes. Subacromial space is not diminished. There is a medially directed bony excrescence again noted off the greater tuberosity on the lateral aspect of the humeral head which is unchanged from pr evious and probably related to prior injury. Which also an angulated acute appearing fracture in the lateral 3rd of the clavicle. This is at area of previously present deformity. Acromion appears intact. There is a fracture of the 2nd in right rib. There are multiple healed rib fractures involving the r ight 4th, 5th, 6, and 7th ribs again noted within the field of view. IMPRESSION: There is a subchondral fracture of the superior aspect of the humeral head, this superimposed upon ch ronic humeral head findings described above. There is an acute fracture of the lateral aspect of the right clavicle. Angulation noted. AC joint is not appear distracted. DATA REPOSITORY: RADIATION DOSE DELIVERED:
--- NOTE | 2022-11-14 23:30 | DI.CT_ITS ---
Exam(s) CT CHEST/ABD/PEL W EXAM: CT CHEST/ABD/PEL W CLINICAL HISTORY: fall,R rib pain, r/o acute fracture. TECHNIQUE: Imaging Protocol: Axial computed tomography images with coronal and sagittal reformatted images were created and reviewed CONTRAST MATERIAL: Intravenous: Omnipaque 350 Contrast volume:100 ml Oral: None COMPARISON: CT CT THORACIC LUMBAR SPINE REC from 02/18/2021 CR XR PORTABLE CHEST AP from 05/12/[address] ABDOMEN PELVIS W from 10/17/2022 FINDINGS: CHEST: LUNGS: There is a cyst dilate nodular density in the right upper lobe measuring approximately 1.5 x 1 .5 cm. This requires follow-up to rule out malignancy. No other significant focal lung findings and no pleural effusions. No pneumothorax. No findings in the trachea and mainstem bronchi.. MEDIASTINUM: There is no hilar nor mediastinal adenopathy. Visualized thyroid unremarkable. CARDIAC: Mild cardiomegaly. No pericardial effusion. Caliber thoracic aorta is upper normal. No di ssection.z OSSEOUS: There are multiple healed bilateral rib fractures. No obvious acute appearing rib fractures evident.. ABDOMEN: There is a moderate-prominent amount of ascites in the abdomen and pelvis. This has mildly further i ncreased from the prior study of 10/17/2022. LIVER: Liver appears somewhat cirrhotic. There is a mildly heterogeneous density in the upper right hepatic lobe. No other focal findings in the liver. The amount of steatosis appears somewhat less t fuentes previous. GALLBLADDER/BILIARY: The gallbladder is again noted be surgically absent. CBD is not dilated. PANCREAS: No evidence of pancreatic mass nor dilatation of the pancreatic duct. SPLEEN: Spleen size upper normal. Splenic and portal veins are patent. ADRENALS: There are no significant adrenal masses. KIDNEYS: There are benign cysts in both kidneys again noted. The largest is in the anterior cortex o f the right kidney and measures 3 by 3 cm. No solid lesions in either kidney. No calculi. No hydro nephrosis. No hydroureter. No obvious abnormality in the urinary bladder.. ABDOMINAL AORTA: Abdominal aorta is not enlarged. LYMPH NODES: There is no retroperitoneal nor paraaortic adenopathy. ABDOMINAL WALL: No evidence of significant anterior abdominal wall nor inguinal hernia. GI: There is no evidence of bowel obstruction. PELVIS: LYMPH NODES: There is no intrapelvic nor inguinal adenopathy. GI: No evidence of appendicitis.No evidence of sigmoid diverticulitis. URINARY BLADDER: No calculi nor masses evident REPRODUCTIVE: Uterus and adnexal regions are age-appropriate. OSSEOUS: Chronic degenerative disc disease. Anterolisthesis L4 upon L5 due to did facet arthropathy. Disc space narrowing at this level and other levels in the lumbar spine with the exception of edilberto l disc height at L5-S1. There is indentation of the inferior endplate of T12 noted, unchanged from p revious study IMPRESSION: 1. Compared to the CT scan of 10/17/2022 the amount of ascites in the abdomen pelvis has further incr eased, presently moderate-prominent amount. There are no pleural effusions. 2. Cirrhotic appearing liver. Asymmetric density in the upper right hepatic lobe again noted. Possi lucila area of scarring but cannot exclude more concerning pathology and if clinically indicated follow- up MRI can be performed. 3. Spleen size upper normal. 4. Multiple healed bilateral rib fractures. No obvious acute rib fractures. Indentation of inferior endplate of T12 which is also not new. No acute compression fractures evident. 5. Stellate density in the right upper lobe measuring 1.5 x 1.5 cm. Requires further workup to rule out malignancy. RADIATION DOSE DELIVERED: Total DLP DATA REPOSITORY: All CT scans at this facility are submitted to the National Radiology Data Registry (NRDR) Dose Index Registry (DIR) with the [employer] ([employer]). RADIATION OPTIMIZATION: All CT scans at this facility use at least one of these dose optimization te chniques: automated exposure control; mA and/or kV adjustment per patient size (includes targeted exa ms where dose is matched to clinical indication); or iterative reconstruction.
--- NOTE | 2022-11-14 23:30 | DI.CT_ITS ---
Exam(s) CT HEAD CERVICAL SPINE WO EXAM: CT HEAD CERVICAL SPINE WO CLINICAL HISTORY: s/p fall, r/o acute fracture/intracranial inj. TECHNIQUE: Imaging Protocol: Axial computed tomography images with coronal and sagittal reformatted images were created and reviewed COMPARISON: CT CT HEAD WO from 02/04/2022 FINDINGS: BRAIN: There are no skull fractures nor fluid in the visualized paranasal sinuses. There is no evidence of intracranial hemorrhage, mass effect, or shift of midline structures. There are no extra-axial fluid collections. There is symmetrical generalized atrophy again noted. This ap pears unchanged from previous study. The size of the ventricles is commensurate with the size of the overlying cortical sulci. There is no blood within the ventricular system nor within the basal cist erns. There is some mild bilateral periventricular hypodensity consistent with chronic small vessel disease. No obvious acute infarct. CERVICAL SPINE: No evidence of acute fracture. Multilevel advanced chronic disc space narrowing. There is also dege nerative anterolisthesis of C3 upon C4 related to facet arthrosis. Mild disc space narrowing at this level. More advanced disc space narrowing at the levels below this. There is also mild degenerativ e anterolisthesis C5 upon C6. Multilevel facet arthropathy. There is no significant facet joint malalignment. No significant osseous lesions evident. IMPRESSION: No acute intracranial findings on this noninfused CT scan of the brain.Generalized atrophy again note d. Multilevel chronic degenerative changes in the cervical spine, as discussed above. No evidence of cervical spine fracture, malalignment, nor acute compromise of the cervical spinal can al. There is a nodular infiltrate in the right upper lobe incidentally noted, measuring approximately 1.5 x 1.5 cm. Recommend follow-up CT scan of the chest. RADIATION DOSE DELIVERED: 1,056.06mGy.cm Total DLP DATA REPOSITORY: All CT scans at this facility are submitted to the National Radiology Data Registry (NRDR) Dose Index Registry (DIR) with the [employer] ([employer]). RADIATION OPTIMIZATION: All CT scans at this facility use at least one of these dose optimization te chniques: automated exposure control; mA and/or kV adjustment per patient size (includes targeted exa ms where dose is matched to clinical indication); or iterative reconstruction.
--- NOTE | 2022-11-14 23:39 | DI.CT_ITS ---
Exam(s) CT THORACIC LUMBAR SPINE REC EXAM: CT THORACIC LUMBAR SPINE REC CLINICAL HISTORY: fall, r/o acute fracture TECHNIQUE: COMPARISON: CT CT CHEST/ABD/PEL W from 11/15/2022 FINDINGS: THORACIC SPINAL COLUMN: No evidence of acute fracture. No listhesis. No acute compromise of the can al. LUMBOSACRAL SPINAL COLUMN: No evidence of acute fracture. Multilevel disc space narrowing. There is degenerative anterolisthesis L4 upon L5, with approximately 9 millimeters anterior slippage of L5 up on S1. No pars defects. Also advanced disc space narrowing at this level as well as L1-2 and L2-3 l evels. L5-S1 exhibits normal disc height. L3-4 exhibits mild narrowing disc. There is mild degener ative scoliosis convex left. IMPRESSION: Degenerative changes. No fractures. No acute compromise of the spinal canal.
--- NOTE | 2022-11-14 23:40 | NUR.NOTE ---
Nursing Note:Provider at bedside, C-collar applied.
--- NOTE | 2022-11-14 23:47 | W.ED.GENAD ---
Discharge Plan Disposition Patient Disposition: Home Condition: Stable Discharge Details Clinical Impression: Closed fracture of right clavicle, Frequent falls, Closed right humeral fracture, Alcohol intoxication Primary Care Provider: Lavelle Galindo ED Provider: Megan Foster Home Meds and New Rx's Prescriptions: Continued Xiidra 5 % dropperette 1 drp ophthalmic (eye) BID Rx Instructions: administer approximately 12 hours apart budesonide [Pulmicort] 0.5 mg/2 mL suspension for nebulization 0.5 mg inhalation DAILY Qty: 60 5RF Patient Comments: pt states meds come in blister pack labeled daily by [employer] and she takes them but doesn't know the names furosemide 20 mg tablet See Rx Instructions PO BID Qty: 180 3RF Patient Comments: pt states meds come in blister pack labeled daily by [employer] and she takes them but doesn't know the names Rx Instructions: orally twice a day; 3 tabs (60mg) in AM and 2 tabs(40mg in afternoon; ipratropium-albuterol 0.5 mg-3 mg(2.5 mg base)/3 mL solution for nebulization 3 ml inhalation Q6H PRN Patient Comments: pt states meds come in blister pack labeled daily by [employer] and she takes them but doesn't know the names Myrbetriq 50 mg tablet extended release 24 hr 50 mg PO DAILY Qty: 30 12RF lorazepam 1 mg tablet 0.5 - 1 mg PO QHS PRN (Reason: sleep) Qty: 15 0RF Patient Comments: pt states meds come in blister pack labeled daily by [employer] and she takes them but doesn't know the names albuterol sulfate [Ventolin HFA] 90 mcg/actuation HFA aerosol inhaler 2 puff inhalation QID PRN (Reason: shortness of breath or wheezing) Qty: 8.5 1RF amlodipine 10 mg tablet 10 mg PO DAILY Qty: 90 3RF Patient Comments: pt states meds come in blister pack labeled daily by [employer] and she takes them but doesn't know the names buspirone 5 mg tablet 5 mg PO BID Qty: 60 5RF Patient Comments: pt states meds come in blister pack labeled daily by [employer] and she takes them but doesn't know the names folic acid 1 mg tablet 1 mg PO DAILY Qty: 90 3RF Patient Comments: pt states meds come in blister pack labeled daily by [employer] and she takes them but doesn't know the names melatonin 3 mg capsule 6 mg PO HS Qty: 180 3RF Patient Comments: pt states meds come in blister pack labeled daily by [employer] and she takes them but doesn't know the names metoprolol tartrate 50 mg tablet 50 mg PO DAILY Qty: 90 3RF Patient Comments: pt states meds come in blister pack labeled daily by [employer] and she takes them but doesn't know the names mirtazapine 7.5 mg tablet 7.5 mg PO QHS Qty: 90 4RF Patient Comments: pt states meds come in blister pack labeled daily by [employer] and she takes them but doesn't know the names sucralfate 1 gram tablet 1 g PO BID Qty: 60 11RF Patient Comments: pt states meds come in blister pack labeled daily by [employer] and she takes them but doesn't know the names thiamine HCl (vitamin B1) 100 mg tablet 100 mg PO DAILY Qty: 90 3RF Patient Comments: pt states meds come in blister pack labeled daily by [employer] and she takes them but doesn't know the names valacyclovir [Valtrex] 500 mg tablet 500 mg PO DAILY Qty: 90 3RF Patient Comments: pt states meds come in blister pack labeled daily by [employer] and she takes them but doesn't know the names Rx Instructions: Take 500 mg BID for 3 days, then take daily fluticasone propionate 50 mcg/actuation spray,suspension 2 spray NS daily prn Qty: 16 5RF Patient Comments: pt states meds come in blister pack labeled daily by [employer] and she takes them but doesn't know the names cyanocobalamin (vitamin B-12) [Vitamin B-12] 500 mcg tablet 1,000 mcg PO DAILY Qty: 180 3RF Patient Comments: pt states meds come in blister pack labeled daily by [employer] and she takes them but doesn't know the names ferrous sulfate 325 mg (65 mg iron) tablet 325 mg PO BID Qty: 180 3RF Patient Comments: pt states meds come in blister pack labeled daily by [employer] and she takes them but doesn't know the names Rx Instructions: do not take within 2 hours of antibiotics multivitamin [Multiple Vitamins] Tablet 1 tab PO DAILY Qty: 90 3RF Patient Comments: pt states meds come in blister pack labeled daily by [employer] and she takes them but doesn't know the names quetiapine 25 mg tablet See Rx Instructions PO BID Qty: 60 5RF Patient Comments: pt states meds come in blister pack labeled daily by [employer] and she takes them but doesn't know the names Rx Instructions: 0.5 tab PO twice a day; spironolactone [Aldactone] 50 mg tablet 50 mg PO BID Qty: 180 3RF Patient Comments: pt states meds come in blister pack labeled daily by [employer] and she takes them but doesn't know the names venlafaxine 75 mg capsule,extended release 24hr 75 mg PO DAILY Qty: 90 3RF Hold Instructions: Home Medication placed on hold at Doctor's office Patient Comments: pt states meds come in blister pack labeled daily by [employer] and she takes them but doesn't know the names. aspirin 81 mg tablet,delayed release (DR/EC) 81 mg PO DAILY Qty: 90 3RF Patient Comments: pt states meds come in blister pack labeled daily by [employer] and she takes them but doesn't know the names carboxymethylcellulose sodium [Refresh Plus] 0.5 % Dropperette 1 drp OU Q4H WHILE AWAKE Qty: 30 0RF Patient Comments: pt states meds come in blister pack labeled daily by [employer] and she takes them but doesn't know the names pantoprazole 40 mg Tablet,Delayed Release (Dr/Ec) 40 mg PO BID@729,1999 Qty: 60 0RF Patient Comments: pt states meds come in blister pack labeled daily by [employer] and she takes them but doesn't know the names ondansetron HCl 4 mg Tablet 4 mg PO Q4H PRN PRNQty: 20 0RF Discharge Instructions Instructions: Clavicle Fracture (ED), Alcohol Intoxication (ED), Proximal Humerus Fracture (ED) Additional Instructions: Your x-ray showed that you likely have an acute right clavicle fracture and an acute on chronic right shoulder fracture. Your CT imaging today showed no evidence of acute traumatic or new findings. Keep the right arm sling in place at all times. You may remove the sling briefly to shower. Rest, ice, and elevate the affected area as much as possible. Alternate tylenol and motrin as needed and directed for pain. You have been placed on orthopedics follow-up list for reevaluation within the next week. Follow-up with your primary care doctor in 1 week. Return to the emergency department with any worsening or new concerning symptoms. Discharge Data Discharge Date/Time-TO BE ENTERED AT DEPARTURE: 11/15/22 04:19 Discharge Physician: Megan Foster Medical Decision Making 4233 -- 77-year-old female well-known to the emergency department with multiple frequent visits in the setting of falls while intoxicated presents for a fall while intoxicated. She is complaining of right shoulder and right rib pain. Also admits to possible head injury but denies any LOC or vomiting. She reports drinking a little bit of alcohol this evening. Patient appears slightly intoxicated with slurring her words but otherwise answers questions appropriately. Her blood pressure is moderately hypertensive but remainder vitals are within normal limits. She demonstrates no signs of withdrawal. She has a positive deformity to the right superior shoulder/distal clavicle area that is exquisitely tender to palpation and has limited range of motion secondary to pain. This area is edematous but there is no significant tenting of skin. Her right anterior lateral chest is tender to palpation. There is no obvious evidence of trauma to the chest or abdomen. No midline spinal tenderness. No other orthopedic deformity noted. Neurovascular intact. Will obtain screening labs, alcohol level refer for CT head to pelvis imaging in addition to right shoulder x-ray. We will give a dose of IV Tylenol for pain relief. 0120 --Labs and imaging reviewed. Alcohol level 263.6. CT head and cervical spine negative for acute findings. CT chest abdomen pelvis negative for acute chest or abdominal findings. CT thoracic and lumbar spine negative for acute findings. She does have what appears to be an acute clavicle fracture and a possible acute on chronic shoulder fracture on her CT chest and right shoulder x-ray. Pt placed in R arm sling. Right shoulder xray notes: IMPRESSION: Findings concerning for acute fracture distal clavicle and questionable subchondral fracture of the humeral head superimposed upon significant chronic findings as noted. Discussed with radiology supervisor Betsy -- she does not see any utility in obtaining a repeat CT right upper extremity as this was obtained in CT chest and patient will likely not be able to improve her positioning for this repeat study. They will send CT chest for CT upper extremity recons for radiology report of right shoulder and clavicle area. 0230 -- Patient placed on orthopedic follow-up list. Pt placed in Right arm sling. Pt states she does not want surgery. Pt states she would prefer to go home. She appears clinically sober and answering questions appropriately. She states she has a walker at home. Pt also placed on care management list to help obtain a specialized walker or assistance at home if needed. Usual and customary return precautions given prior to discharge. She will wait here until later morning when RCT available for transport home. 3D recons CT chest of right upper extremity notes: 1. On coronal images 44-48, linear radiolucency involving the superior right humeral head indicating acute fracture. 2. In addition, old deformity of the right humeral head compared to prior right shoulder x-ray examination dated 04/25/2020 3. Right humeral head degenerative changes. 4. Old injury of the distal right clavicle. No definite CT evidence of acute fracture. Medical Records Medical records reviewed: Yes I reviewed the patient's medical records. Imaging Data Radiologic Study: Radiologist's impression: CT Head Without Contrast Exam date and time: 11/14/2022 11:56 PM Age: 77 years old Clinical indication: Injury or trauma; Blunt trauma (contusions or hematomas); Consciousness not specified; Injury date: 11/14/22; Injury details: Fall, neck pain TECHNIQUE: Imaging protocol: Computed tomography of the head without contrast. Radiation optimization: All CT scans at this facility use at least one of these dose optimization techniques: automated exposure control; mA and/or kV adjustment per patient size (includes targeted exams where dose is matched to clinical indication); or iterative reconstruction. COMPARISON: CT HEAD WO 02/04/2022 10:05 AM FINDINGS: Brain: There is stable moderate generalized cerebral atrophy. No intracranial mass, hemorrhage or evidence of acute infarcts. Cerebral ventricles: No ventriculomegaly. Paranasal sinuses: There is mild mucosal thickening in the left maxillary sinus and left ethmoid air cells. Paranasal sinuses are otherwise clear. Mastoid air cells: Visualized mastoid air cells are well aerated. Bones/joints: Unremarkable. No acute fracture. Soft tissues: Unremarkable. IMPRESSION: No acute intracranial abnormality CT Cervical Spine Without Contrast Exam date and time: 11/14/2022 11:56 PM Age: 77 years old Clinical indication: Injury or trauma; Blunt trauma (contusions or hematomas); Consciousness not specified; Injury date: 11/14/22; Injury details: Fall, neck pain TECHNIQUE: Imaging protocol: Computed tomography of the cervical spine without contrast. Radiation optimization: All CT scans at this facility use at least one of these dose optimization techniques: automated exposure control; mA and/or kV adjustment per patient size (includes targeted exams where dose is matched to clinical indication); or iterative reconstruction. COMPARISON: CT HEAD CERV SPINE FACIAL WO 02/18/2021 3:31 PM FINDINGS: Bones/joints: There is severe multilevel degenerative disc disease and facet arthropathy throughout the cervical spine with relative sparing of the C2-C3 level. Facet arthropathy produces grade 1 anterolisthesis of C3 and C5. No acute fracture evident. Lungs: There is partially visualized parenchymal opacity in the right lung apex. Soft tissues: Unremarkable. IMPRESSION: 1. Severe degenerative changes of the cervical spine.? No evidence of acute injury.? 2. Partially visualized opacity in the right lung apex.? Correlation with findings on CT chest indicated. CT Chest With Contrast; Diagnostic Exam date and time: 11/15/2022 12:22 AM Age: 77 years old Clinical indication: Injury or trauma; Generalized; Blunt trauma (contusions or hematomas); Injury date: 11/14/22; Injury details: Fall, R rib pain, R/O acute fracture; Prior surgery; Surgery date: 6+ months; Surgery type: Multiple; Additional info: +etoh TECHNIQUE: Imaging protocol: Diagnostic computed tomography of the chest with contrast. Radiation optimization: All CT scans at this facility use at least one of these dose optimization techniques: automated exposure control; mA and/or kV adjustment per patient size (includes targeted exams where dose is matched to clinical indication); or iterative reconstruction. Contrast material: OMNIPAQUE 350; Contrast volume: 100 ml; Contrast route: INTRAVENOUS (IV);? COMPARISON: CT CHEST PE CTA 07/01/2022 9:55 PM FINDINGS: Lungs: There is mild dependent atelectasis in the lungs. There is a stable focus of opacity in the posterior right lung apex compatible with chronic scarring. No active pulmonary infiltrate. Pleural spaces: Unremarkable. No pneumothorax. No pleural effusion. Heart: The heart is top-normal in size. Lymph nodes: Unremarkable. No enlarged lymph nodes. Vasculature: There is mild dilation of the ascending aorta measuring maximum diameter of 3.7 cm. No evidence of aortic dissection. Bones/joints: Multiple old bilateral rib fractures noted. No acute fracture evident. Soft tissues: Unremarkable. IMPRESSION: Stable chronic findings as noted.? No acute posttraumatic changes evident in the chest. CT Abdomen And Pelvis With Contrast Exam date and time: 11/15/2022 12:22 AM Age: 77 years old Clinical indication: Injury or trauma; Generalized; Blunt trauma (contusions or hematomas); Injury date: 11/14/22; Injury details: Fall, R rib pain, R/O acute fracture; Prior surgery; Surgery date: 6+ months; Surgery type: Multiple; Additional info: +etoh TECHNIQUE: Imaging protocol: Computed tomography of the abdomen and pelvis with contrast. Radiation optimization: All CT scans at this facility use at least one of these dose optimization techniques: automated exposure control; mA and/or kV adjustment per patient size (includes targeted exams where dose is matched to clinical indication); or iterative reconstruction. Contrast material: OMNIPAQUE 350; Contrast volume: 100 ml; Contrast route: INTRAVENOUS (IV);? COMPARISON: CT ABDOMEN PELVIS W 10/17/2022 6:19 PM FINDINGS: Liver: Liver is diffusely fatty.? Approximally 6 cm area of heterogeneous attenuation noted in the dome of the liver. Gallbladder and bile ducts: Gallbladder is surgically absent. Pancreas: Normal. No ductal dilation. Spleen: Normal. No splenomegaly. Adrenal glands: Normal. No mass. Kidneys and ureters: Multiple simple appearing bilateral renal cortical cysts appear similar to previous. No evidence of hydronephrosis. Stomach and bowel: Unremarkable. No obstruction. No mucosal thickening. Appendix: No evidence of appendicitis. Intraperitoneal space: Moderate amount of ascites noted throughout the abdomen and pelvis. Vasculature: Unremarkable. No abdominal aortic aneurysm. Lymph nodes: Unremarkable. No enlarged lymph nodes. Urinary bladder: Unremarkable as visualized. Reproductive: Unremarkable as visualized. Bones/joints: Mild scoliosis and moderate degenerative changes noted throughout the lower spine. Soft tissues: Unremarkable. IMPRESSION: 1.? No acute posttraumatic changes in the abdomen or pelvis 2. Approximally 6 cm area of heterogeneous density in the dome of the liver, which appears otherwise diffusely fatty.? Overlying contracted contour of the liver suggests this may represent chronic scar tissue in retrospect appears to have been present from the study of July 2022. Further evaluation with non-emergent liver MRI is recommended. (Reference: [facility]) CT Thoracic Spine Without Contrast Exam date and time: 11/15/2022 12:22 AM Age: 77 years old Clinical indication: Injury or trauma; Blunt trauma (contusions or hematomas); Injury date: 11/14/22; Injury details: Fall, pain. R/O FX TECHNIQUE: Imaging protocol: Computed tomography of the thoracic spine without contrast. Radiation optimization: All CT scans at this facility use at least one of these dose optimization techniques: automated exposure control; mA and/or kV adjustment per patient size (includes targeted exams where dose is matched to clinical indication); or iterative reconstruction. COMPARISON: CT HEAD CERVICAL SPINE WO 11/14/2022 11:56 PM FINDINGS: Bones/joints: Osseous alignment is normal. [id number] multilevel degenerative disc changes are noted. No acute fracture. Multiple old bilateral posterior rib fractures noted. Soft tissues: Unremarkable. IMPRESSION: Chronic osseous changes.? No acute fracture CT Lumbar Spine Without Contrast Exam date and time: 11/15/2022 12:22 AM Age: 77 years old Clinical indication: Injury or trauma; Blunt trauma (contusions or hematomas); Injury date: 11/14/22; Injury details: Fall, pain. R/O FX TECHNIQUE: Imaging protocol: Computed tomography of the lumbar spine without contrast. Radiation optimization: All CT scans at this facility use at least one of these dose optimization techniques: automated exposure control; mA and/or kV adjustment per patient size (includes targeted exams where dose is matched to clinical indication); or iterative reconstruction. COMPARISON: CT ABDOMEN PELVIS W 10/17/2022 6:19 PM FINDINGS: Bones/joints: There is mild levoscoliosis of the lumbar spine. No vertebral body compression or acute fracture. Severe degenerative disc changes noted L1-L2, L2-L3 and L4-L5 disc levels. Severe bilateral facet arthropathy noted L4-L5 producing significant grade 1 anterolisthesis of L4. Soft tissues: Unremarkable. IMPRESSION: Severe degenerative changes of the lumbar spine.? No acute fracture XR Right Shoulder Exam date and time: 11/15/2022 12:39 AM Age: 77 years old Clinical indication: Injury or trauma; Blunt trauma (contusions or hematomas); Shoulder; Right; Injury date: 11/14/21; Injury details: Fall, pain; Additional info: +etoh TECHNIQUE: Imaging protocol: Radiologic exam of the right shoulder. Views: 2 or more views. COMPARISON: CR XR SHOULDER RT COMPLETE 2+V 12/16/2020 8:38 AM FINDINGS: Bones/joints: Chronic deformity of the distal clavicle compatible with old fracture noted. There is now lucency through the deformed portion of the clavicle raising concern for acute fracture. Chronic deformity of the humeral head compatible with old fracture. Subchondral lucency in the humeral head could represent acute fracture or avascular necrosis. Old, healed right rib fractures are noted. Glenohumeral joint is normally aligned. Soft tissues: Normal. IMPRESSION: Findings concerning for acute fracture distal clavicle and questionable subchondral fracture of the humeral head superimposed upon significant chronic findings as noted. CT Right Upper Extremity With Contrast, Shoulder (recons of CT chest) 1. On coronal images 44-48, linear radiolucency involving the superior right humeral head indicating acute fracture. 2. In addition, old deformity of the right humeral head compared to prior right shoulder x-ray examination dated 04/25/2020 3. Right humeral head degenerative changes. 4. Old injury of the distal right clavicle. No definite CT evidence of acute fracture. Lab Data Lab results reviewed: Yes I reviewed the patient's lab results. Labs: Laboratory Tests Range/Units 11/14/22 11/14/22 11/14/22 23:25 23:25 23:25 WBC (4.4-10.8) 10^3/uL 3.14 L RBC (3.93-5.22) 10^6/uL 3.83 L Hgb (11.2-15.7) g/dL 12.7 Hct (36.0-46.0) % 39.0 MCV (80-95) fL 102 H MCH (27.0-33.0) pg 33.2 H MCHC (32.0-36.0) % 32.6 RDW (11.7-14.6) % 14.6 Plt Count (130-400) 10^3/uL 174 MPV (8.0-11.0) fL 9.1 Immature Gran % 0.6 Neutrophils % 48.4 Lymphocytes % 44.6 Monocytes % 5.1 Eosinophils % 0.3 Basophils % 1.0 Nucleated RBC % (0.0-0.3) % 0.0 Absolute Neutrophils (1.2-6.7) 10^3/uL 1.52 Absolute Lymphocytes (1.2-3.4) 10^3/uL 1.40 Absolute Monocytes (0.1-0.8) 10^3/uL 0.16 Absolute Eosinophils (0.0-0.7) 10^3/uL 0.01 Absolute Basophils (0.0-0.2) 10^3/uL 0.03 Sodium (136-145) mmol/L 139 Potassium (3.5-5.1) mmol/L 3.4 L Chloride (98-107) mmol/L 103 Carbon Dioxide (21.0-32.0) mmol/L 25.3 Anion Gap (3-11) mmol/L 10.7 BUN (7-18) mg/dL 13 Creatinine (0.55-1.02) mg/dL 0.8 Est GFR (CKD-EPI 2020) (mL/min/1.73m2) 76.31 Glucose (74-106) mg/dL 105 Calcium (8.5-10.1) mg/dL 8.9 Total Bilirubin (0.2-1.0) mg/dL 0.8 AST (15-37) U/L 48 H ALT (14-59) U/L 24 Alkaline Phosphatase (46-116) U/L 175 H Total Protein (6.4-8.2) g/dL 6.7 Albumin (3.4-5.0) g/dL 3.4 Ethyl Alcohol (<10) mg/dL 263.6 H HPI General Mode of arrival: EMS. Date/Time Provider Initiated Documentation: 11/14/22 23:17. Limitations to Documentation: no limitations. Information obtained by: patient. HPI Narrative: Patient is a 77-year-old female well-known to the emergency department with multiple visits for alcohol intoxication and fall who presents for mechanical fall at home while intoxicated. Patient states she was getting into bed when she tripped over a rug and fell hitting her right shoulder. She states she thinks she may have hit her head but denies any LOC, headache or vomiting. She states she is mainly complaining of pain in her right shoulder. Patient has not taken any medication for pain. She also now admits to right-sided rib pain. She denies any abdominal or back pain. She states she drank a little bit of liquor this evening. She states she drinks as much as I can daily. Related Data Home Medications Medication Instructions Recorded Confirmed carboxymethylcellulose sodium 0.5 1 drp OU Q4H WHILE AWAKE #30 ea 06/20/19 10/28/22 % eye drops in a dropperette (Refresh Plus) lifitegrast 5 % eye drops in a 1 drp ophthalmic (eye) BID 08/05/20 10/28/22 dropperette (Xiidra) ipratropium 0.5 mg-albuterol 3 mg 3 ml inhalation Q6H PRN 12/25/21 10/28/22 (2.5 mg base)/3 mL nebulization soln albuterol sulfate 90 mcg/actuation 2 puff inhalation QID PRN 02/08/22 10/28/22 aerosol inhaler (Ventolin HFA) shortness of breath or wheezing #8.5 grams amlodipine 10 mg tablet 10 mg PO DAILY #90 tabs 02/08/22 10/28/22 buspirone 5 mg tablet 5 mg PO BID #60 tabs 02/08/22 10/28/22 folic acid 1 mg tablet 1 mg PO DAILY #90 tabs 02/08/22 10/28/22 melatonin 3 mg capsule 6 mg PO HS #180 caps 02/08/22 10/28/22 metoprolol tartrate 50 mg tablet 50 mg PO DAILY #90 tabs 02/08/22 10/28/22 mirtazapine 7.5 mg tablet 7.5 mg PO QHS #90 tabs 02/08/22 10/28/22 sucralfate 1 gram tablet 1 g PO BID #60 tabs 02/08/22 10/28/22 thiamine HCl (vitamin B1) 100 mg 100 mg PO DAILY #90 tabs 02/08/22 10/28/22 tablet valacyclovir 500 mg tablet 500 mg PO DAILY #90 tabs 02/08/22 10/28/22 (Valtrex) fluticasone propionate 50 2 spray NS daily prn #16 grams 03/06/22 10/28/22 mcg/actuation nasal spray,suspension budesonide 0.5 mg/2 mL suspension 0.5 mg (2 mL) inhalation DAILY #60 05/06/22 10/28/22 for nebulization (Pulmicort) mL pantoprazole 40 mg tablet,delayed 40 mg PO BID@0730,1999 #60 tabs 05/21/22 10/28/22 release cyanocobalamin (vitamin B-12) 500 1,000 mcg PO DAILY #180 tabs 07/10/22 10/28/22 mcg tablet (Vitamin B-12) ferrous sulfate 325 mg (65 mg 325 mg PO BID #180 tabs 07/10/22 10/28/22 iron) tablet multivitamin (Multiple Vitamins 1 tab PO DAILY #90 tabs 07/10/22 10/28/22 tablet) quetiapine 25 mg tablet See Rx Instructions PO BID #60 tabs 07/10/22 10/28/22 spironolactone 50 mg tablet 50 mg PO BID #180 tabs 07/10/22 10/28/22 (Aldactone) venlafaxine 75 mg capsule,extended 75 mg PO DAILY #90 caps 07/10/22 10/28/22 release 24 hr mirabegron 50 mg tablet,extended 50 mg PO DAILY #30 tabs 07/20/22 10/28/22 release 24 hr (Myrbetriq) aspirin 81 mg tablet,delayed 81 mg PO DAILY #90 tabs 08/05/22 10/28/22 release furosemide 20 mg tablet See Rx Instructions PO BID #180 08/11/22 10/28/22 tabs ondansetron HCl 4 mg tablet 4 mg PO Q4H PRN PRN #20 tabs 10/20/22 10/28/22 lorazepam 1 mg tablet 0.5 - 1 mg PO QHS PRN sleep #15 10/28/22 10/28/22 tabs Previous Rx's Medication Instructions Recorded carboxymethylcellulose sodium 0.5 1 drp OU Q4H WHILE AWAKE #30 ea 06/20/ % eye drops in a dropperette (Refresh Plus) albuterol sulfate 90 mcg/actuation 2 puff inhalation QID PRN 02/08/22 aerosol inhaler (Ventolin HFA) shortness of breath or wheezing #8.5 grams amlodipine 10 mg tablet 10 mg PO DAILY #90 tabs 02/08/22 buspirone 5 mg tablet 5 mg PO BID #60 tabs 02/08/22 folic acid 1 mg tablet 1 mg PO DAILY #90 tabs 02/08/22 melatonin 3 mg capsule 6 mg PO HS #180 caps 02/08/22 metoprolol tartrate 50 mg tablet 50 mg PO DAILY #90 tabs 02/08/22 mirtazapine 7.5 mg tablet 7.5 mg PO QHS #90 tabs 02/08/22 sucralfate 1 gram tablet 1 g PO BID #60 tabs 02/08/22 thiamine HCl (vitamin B1) 100 mg 100 mg PO DAILY #90 tabs 02/08/22 tablet valacyclovir 500 mg tablet 500 mg PO DAILY #90 tabs 02/08/22 (Valtrex) fluticasone propionate 50 2 spray NS daily prn #16 grams 03/06/22 mcg/actuation nasal spray,suspension budesonide 0.5 mg/2 mL suspension 0.5 mg (2 mL) inhalation DAILY #60 05/06/22 for nebulization (Pulmicort) mL pantoprazole 40 mg tablet,delayed 40 mg PO BID@0730,1999 #60 tabs 05/21/22 release cyanocobalamin (vitamin B-12) 500 1,000 mcg PO DAILY #180 tabs 07/10/22 mcg tablet (Vitamin B-12) ferrous sulfate 325 mg (65 mg 325 mg PO BID #180 tabs 07/10/22 iron) tablet multivitamin (Multiple Vitamins 1 tab PO DAILY #90 tabs 07/10/22 tablet) quetiapine 25 mg tablet See Rx Instructions PO BID #60 tabs 07/10/22 spironolactone 50 mg tablet 50 mg PO BID #180 tabs 07/10/22 (Aldactone) venlafaxine 75 mg capsule,extended 75 mg PO DAILY #90 caps 07/10/22 release 24 hr mirabegron 50 mg tablet,extended 50 mg PO DAILY #30 tabs 07/20/22 release 24 hr (Myrbetriq) aspirin 81 mg tablet,delayed 81 mg PO DAILY #90 tabs 08/05/22 release furosemide 20 mg tablet See Rx Instructions PO BID #180 08/11/22 tabs ondansetron HCl 4 mg tablet 4 mg PO Q4H PRN PRN #20 tabs 10/20/22 lorazepam 1 mg tablet 0.5 - 1 mg PO QHS PRN sleep #15 10/28/22 tabs Allergies Allergy/AdvReac Type Severity Reaction Status Date / Time Penicillins Allergy Mild Rash Verified 11/14/22 23:13 ramipril Allergy Unknown ITCHING Verified 11/14/22 23:13 meperidine [From Demerol] AdvReac Severe Nausea Verified 11/14/22 23:13 bupropion AdvReac Mild GI upset Verified 11/14/22 23:13 AMBER Inhibitors AdvReac Unknown COUGH Verified 11/14/22 23:13 alendronate sodium AdvReac Unknown GI Distress Verified 11/14/22 23:13 clarithromycin AdvReac Unknown intolerant Verified 11/14/22 23:13 paroxetine AdvReac Unknown Diarrhea Verified 11/14/22 23:13 General Stated Complaint: Orthopedic JORDAN: 3 Review of Systems All systems reviewed & are unremarkable except as noted in HPI and below Constitutional Constitutional: Reports as per HPI, Denies chills and Denies fever(s) Eyes Eyes: Denies blurry vision ENT Ears, Nose, Mouth, and Throat: Denies dizziness, Denies sore throat and Denies throat swelling Cardiovascular Cardiovascular: Denies chest pain and Denies dyspnea Respiratory Respiratory: Denies cough and Denies dyspnea Gastrointestinal Gastrointestinal: Denies abdominal pain, Denies diarrhea and Denies vomiting Genitourinary Genitourinary: Denies hematuria and Denies dysuria Musculoskeletal Musculoskeletal: Denies back pain and Denies numbness Integumentary/Breasts Skin/Breast: Denies lesions and Denies rash Neurologic Neurologic: Denies dizziness, Denies localized weakness and Denies numbness Allergic/Immunologic Allergic/Immunologic: Denies throat swelling PFSH All Active Problems (Updated 11/15/22 @ 01:43 by Megan Foster DO) Closed fracture of right clavicle (Acute) Frequent falls (Acute) Closed right humeral fracture (Acute) Alcohol intoxication (Acute) Sleep disturbance (Acute) Sinus tachycardia (Acute) High anion gap metabolic acidosis (Acute) Elevated blood pressure reading with diagnosis of hypertension (Acute) Pincer nail deformity (Acute) Insomnia (Acute) Thrombocytopenia (Chronic) Elevated bilirubin (Acute) Mixed stress and urge urinary incontinence (Acute) Thyroid nodule (Acute) Anxiety (Chronic) Adverse effect of metronidazole (Acute) Medication monitoring encounter (Acute) Advance care planning (Acute) Cirrhosis of liver with ascites (Acute) Animal bite of right hand with infection (Acute) Umbilical hernia (Acute) Hyperbilirubinemia (Acute) Shortness of breath (Acute) Elevated blood pressure reading without diagnosis of hypertension (Acute) Left arm pain (Acute) Ambulatory dysfunction (Acute) Incontinence (Acute) Anorexia (Acute) Headache (Acute) Depression (Chronic) Chest pain (Acute) Foot pain, right (Acute) Tendinitis of left rotator cuff (Acute) Macrocytosis (Acute 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 Leukopenia (Acute) Headache (Acute) Epigastric abdominal pain (Acute) Calcific tendinitis of left shoulder (Acute) Pulmonary mass (Acute) spiculated mass Pneumonia (Acute) Depression with suicidal ideation (Acute) Alcohol abuse (Chronic) Diarrhea (Acute) Epigastric pain (Acute) Dehydration (Acute) Discharge planning issues (Acute) Difficult intravenous access (Acute) Multiple IV attempts, usually requires ultrasound placement. PTSD (post-traumatic stress disorder) (Acute) Anemia (Chronic) Depression (Chronic) Foot pain, right (Acute) T12 compression fracture (Acute) Presacral mass (Chronic) Deviated nasal septum (Acute) Frequent falls (Chronic) Head injury (Acute) Ambulatory dysfunction (Chronic) Shoulder pain, right (Chronic) Suicidal ideation (Acute) Dry eye (Acute) Pruritus (Acute) Dystrophic nail (Acute) AMBER (acute kidney injury) (Acute) Iron deficiency anemia (Chronic) Fall (Acute) Atelectasis of left lung (Chronic) Advance directive on file (Acute) Nodule of upper lobe of right lung (Acute ~09/13/18) 09/13/18 [facility]; 12mm SPICULATED -kb Cataract (Chronic 11/07/15) Hypertension (Chronic) high today; she will check readings at home Hyperlipidemia (Chronic) Back pain, chronic (Chronic) Depression (Chronic) Osteopenia (Chronic) Medical History (Updated 11/15/22 @ 01:43 by Megan Foster DO) Adjustment disorder with depressed mood Alcoholic ketosis Anemia Cervical radicular pain neck pain and [facility] 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) pls refrain from alcohol Chronic alcoholism she will not stop drinking unless she checks with me, so that we can help her avert withdrawal I do not think she is capable on her own--she would need placement to achieve required goal of 3 months of sobriety Chronic diarrhea Closed right humeral fracture Corneal ulcer, right (~08/23/18) 08/23/18; [facility] Fracture of humerus, left, closed Genital herpes simplex recurrent gential; suppressive Valtrex GERD (gastroesophageal reflux disease) GI bleed (12/20/16) Hypertension Hypokalemia Hypokalemia Hypomagnesemia Incidental lung nodule, greater than or equal to 8mm 1cm, spiculated, stable for many years, recommend f/u in 6 mo Multiple rib fractures 03/11/19 [facility] Non-cardiac chest pain (09/21/16) [facility] 09/21/16 NEGATIVE MP Osteoarthritis Palliative care patient (03/21/17) Pancreatitis, alcoholic, acute Peripheral edema Photophobia of right eye Pleural effusion on left 03/11/19 [facility] Presacral mass (~09/15/18) 09/15/18 [facility] Sciatica right, epidural injuections [facility] Tubular adenoma of colon (01/28/17) Urinary incontinence 01/24/13 urethral suspension and sling at [facility] (bladder suspension 1991) Vision loss of right eye 08/17/18;[facility] Wernicke encephalopathy Surgical History (Updated 10/17/22 @ 22:07 by Gwyn Blake MD) Colonoscopy - MAC (01/28/17) EGD - MAC (12/20/16) History of bilateral ligation of fallopian tubes History of Surgical Procedure a. Bladder repair. Repair bladder injury, simple S/P laparoscopic cholecystectomy (~05/19/22) Family History Mother No problems noted. Father , DROWNED at age 50. No problems noted. Sister Personal history of malignant neoplasm MELANOMA Sister No problems noted. Grandfather Personal history of malignant neoplasm STOMACH Grandfather Personal history of malignant neoplasm PROSTATE Grandmother Heart disease VA Acute ill-defined cerebrovascular disease Grandmother Personal history of malignant neoplasm UTERINE Aunt , VA Heart disease VA Aunt , VA Heart disease Brother No problems noted. Social History (Updated 10/06/22 @ 12:01 by Margaret Kinney RN) Smoking/Tobacco Use Status: Former Tobacco Use Quit Date: 08/29/80 Smoking risk assessment performed?: Yes Alcohol Intake: current Alcohol Intake frequency: 3 or more drinks per day Alcohol type: hard liquor Drug use: Never Substance use type: does not use Details: Last alcoholic drink Mike zhong, 2 days ago Current gender identity: female Do you feel safe at home: Yes Do you feel safe in your relationship?: No Additional Social history: Has 1 dog, 4 cats. Exam Const General: cooperative and no acute distress Orientation: alert, awake and oriented x3 HENMT Head: normal to inspection Ears: hearing grossly normal bilaterally and external ears normal Face and sinus: normal facial exam Throat: posterior oropharynx normal Eyes General: appearance normal, both eyes and all related structures Pupils: PERRL EOM: EOM intact bilaterally Neck Neck: normal visual inspection and No submandibular swelling Chest Chest: normal inspection of the chest and tenderness (Right anterior lateral ribs) Resp Effort & Inspection: normal respiratory effort and able to speak in complete sentences Auscultation: clear to auscultation bilaterally Cardio Rate: regular rate Rhythm: regular rhythm GI Inspection: normal to inspection and no abdominal wall ecchymosis Palpation: soft, not firm, not rigid and nontender Auscultation: hypoactive bowel sounds Back/Spine/Pelvis Cervical Spine: No cervical spinal tenderness Thoracic/Lumbar Spine: thoracic and lumbar spine normal to inspection, No thoracic spinal tenderness and No lumbar spinal tenderness Pelvis: no pain with anterior-posterior compression Skin General skin exam: no rashes or lesions noted Neuro General: patient alert, patient awake and patient oriented x3 Cognition: normal cognition Speech: speech normal Motor: muscle tone normal throughout Sensory Exam: no sensory deficits noted Extrem General: normal to inspection, capillary refill normal, no calf tenderness bilaterally and no edema Shoulder/upper arm images: 1. Deformity right superior shoulder/trapezius with edema and tenderness to palpation. No open wounds noted. No erythema or ecchymosis noted. Limited range of motion secondary to pain in this area. There is some tenderness to the right anterior shoulder as well but there is no obvious deformity here. There is some tenderness palpation overlying right clavicle but no obvious deformity Other: No tenderness to patient's right elbow, forearm, wrist or hand. Normal range of motion left upper and bilateral lower extremities without significant pain or deformity. Psych Appearance: grossly normal Mental Status: mental status grossly normal Speech and Movement: speech and movement normal Affect: normal affect Course Vital Signs Vital signs: Vital Signs Temperature 98.6 F 11/14/22 23:05 Pulse 90 11/14/22 23:05 Respiratory Rate 18 11/14/22 23:05 Blood Pressure 152/81 H 11/14/22 23:05 Pulse Oximetry 96 11/14/22 23:05 Temperature 98.6 F 11/14/22 23:05 Temperature Source Oral 11/14/22 23:05 Pulse 90 11/14/22 23:05 Respiratory Rate 18 11/14/22 23:05 Respiratory Effort Normal 11/14/22 23:11 Blood Pressure 152/81 H 11/14/22 23:05 Blood Pressure Position Supine 11/14/22 23:05 Pulse Oximetry 96 11/14/22 23:05 Oxygen Delivery Method Room Air 11/14/22 23:05 Oxygen Flow Rate 0 11/14/22 23:05 Pain Level 6 11/14/22 23:05
[2022-11-14 23:49] LABS: Abs Immature Grans 0.02 10^3/uL (0.0-0.06); Absolute Basophil Count 0.03 10^3/uL (0.0-0.2); Absolute Eosinophil Count 0.01 10^3/uL (0.0-0.7); Absolute Monocyte Count 0.16 10^3/uL (0.1-0.8); Absolute Neutrophil Count 1.52 10^3/uL (1.2-6.7); Eosinophils % 0.3; HGB 12.7 g/dL (11.2-15.7); Immature Grans % 0.6; Lymphocytes % 44.6; MCH 33.2 pg (27.0-33.0); MCHC 32.6 % (32.0-36.0); MCV 102 fL (80-95); MPV 9.1 fL (8.0-11.0); Monocytes % 5.1; Neutrophils % 48.4; Platelet Count 174 10^3/uL (130-400); RBC 3.83 10^6/uL (3.93-5.22); RDW 14.6 % (11.7-14.6); RDW-SD 55.2 fL; WBC 3.14 10^3/uL (4.4-10.8)
[2022-11-14] MEDS: Omnipaque 350 MG/ML 100 ML BTL IJ (23:54)
[2022-11-15 00:05] LABS: ALT 24 U/L (14-59); AST 48 U/L (15-37); Albumin 3.4 g/dL (3.4-5.0); Alkaline Phosphatase 175 U/L (46-116); Anion Gap 10.7 mmol/L (3-11); BUN 13 mg/dL (7-18); Bilirubin, Total 0.8 mg/dL (0.2-1.0); CO2 25.3 mmol/L (21.0-32.0); CREATININE 0.8 mg/dL (0.55-1.02); Calcium 8.9 mg/dL (8.5-10.1); Chloride 103 mmol/L (98-107); Estimated GFR 76.31 (mL/min/1.73m2); Glucose 105 mg/dL (74-106); Potassium 3.4 mmol/L (3.5-5.1); Sodium 139 mmol/L (136-145); Total Protein 6.7 g/dL (6.4-8.2)
[2022-11-15 00:09] LABS: ETHANOL BLOOD 263.6 mg/dL (<10)
--- NOTE | 2022-11-15 00:28 | DI.VRAD_ITS ---
PROCEDURE INFORMATION: Exam: CT Head Without Contrast Exam date and time: 11/14/2022 11:56 PM Age: 77 years old Clinical indication: Injury or trauma; Blunt trauma (contusions or hematomas); Consciousness not specified; Injury date: 11/14/22; Injury details: Fall, neck pain TECHNIQUE: Imaging protocol: Computed tomography of the head without contrast. Radiation optimization: All CT scans at this facility use at least one of these dose optimization techniques: automated exposure control; mA and/or kV adjustment per patient size (includes targeted exams where dose is matched to clinical indication); or iterative reconstruction. COMPARISON: CT HEAD WO 02/04/2022 10:05 AM FINDINGS: Brain: There is stable moderate generalized cerebral atrophy. No intracranial mass, hemorrhage or evidence of acute infarcts. Cerebral ventricles: No ventriculomegaly. Paranasal sinuses: There is mild mucosal thickening in the left maxillary sinus and left ethmoid air cells. Paranasal sinuses are otherwise clear. Mastoid air cells: Visualized mastoid air cells are well aerated. Bones/joints: Unremarkable. No acute fracture. Soft tissues: Unremarkable. IMPRESSION: No acute intracranial abnormality PROCEDURE INFORMATION: Exam: CT Cervical Spine Without Contrast Exam date and time: 11/14/2022 11:56 PM Age: 77 years old Clinical indication: Injury or trauma; Blunt trauma (contusions or hematomas); Consciousness not specified; Injury date: 11/14/22; Injury details: Fall, neck pain TECHNIQUE: Imaging protocol: Computed tomography of the cervical spine without contrast. Radiation optimization: All CT scans at this facility use at least one of these dose optimization techniques: automated exposure control; mA and/or kV adjustment per patient size (includes targeted exams where dose is matched to clinical indication); or iterative reconstruction. COMPARISON: CT HEAD CERV SPINE FACIAL WO 02/18/2021 3:31 PM FINDINGS: Bones/joints: There is severe multilevel degenerative disc disease and facet arthropathy throughout the cervical spine with relative sparing of the C2-C3 level. Facet arthropathy produces grade 1 anterolisthesis of C3 and C5. No acute fracture evident. Lungs: There is partially visualized parenchymal opacity in the right lung apex. Soft tissues: Unremarkable. IMPRESSION: 1. Severe degenerative changes of the cervical spine. No evidence of acute injury. 2. Partially visualized opacity in the right lung apex. Correlation with findings on CT chest indicated. Dictated and Authenticated by: Steve Chawla MD. Ordering:KATE Guzman MD
--- NOTE | 2022-11-15 01:05 | DI.VRAD_ITS ---
PROCEDURE INFORMATION: Exam: CT Chest With Contrast; Diagnostic Exam date and time: 11/15/2022 12:22 AM Age: 77 years old Clinical indication: Injury or trauma; Generalized; Blunt trauma (contusions or hematomas); Injury date: 11/14/22; Injury details: Fall, R rib pain, R/O acute fracture; Prior surgery; Surgery date: 6+ months; Surgery type: Multiple; Additional info: +etoh TECHNIQUE: Imaging protocol: Diagnostic computed tomography of the chest with contrast. Radiation optimization: All CT scans at this facility use at least one of these dose optimization techniques: automated exposure control; mA and/or kV adjustment per patient size (includes targeted exams where dose is matched to clinical indication); or iterative reconstruction. Contrast material: OMNIPAQUE 350; Contrast volume: 100 ml; Contrast route: INTRAVENOUS (IV); COMPARISON: CT CHEST PE CTA 07/01/2022 9:55 PM FINDINGS: Lungs: There is mild dependent atelectasis in the lungs. There is a stable focus of opacity in the posterior right lung apex compatible with chronic scarring. No active pulmonary infiltrate. Pleural spaces: Unremarkable. No pneumothorax. No pleural effusion. Heart: The heart is top-normal in size. Lymph nodes: Unremarkable. No enlarged lymph nodes. Vasculature: There is mild dilation of the ascending aorta measuring maximum diameter of 3.7 cm. No evidence of aortic dissection. Bones/joints: Multiple old bilateral rib fractures noted. No acute fracture evident. Soft tissues: Unremarkable. IMPRESSION: Stable chronic findings as noted. No acute posttraumatic changes evident in the chest. PROCEDURE INFORMATION: Exam: CT Abdomen And Pelvis With Contrast Exam date and time: 11/15/2022 12:22 AM Age: 77 years old Clinical indication: Injury or trauma; Generalized; Blunt trauma (contusions or hematomas); Injury date: 11/14/22; Injury details: Fall, R rib pain, R/O acute fracture; Prior surgery; Surgery date: 6+ months; Surgery type: Multiple; Additional info: +etoh TECHNIQUE: Imaging protocol: Computed tomography of the abdomen and pelvis with contrast. Radiation optimization: All CT scans at this facility use at least one of these dose optimization techniques: automated exposure control; mA and/or kV adjustment per patient size (includes targeted exams where dose is matched to clinical indication); or iterative reconstruction. Contrast material: OMNIPAQUE 350; Contrast volume: 100 ml; Contrast route: INTRAVENOUS (IV); COMPARISON: CT ABDOMEN PELVIS W 10/17/2022 6:19 PM FINDINGS: Liver: Liver is diffusely fatty. Approximally 6 cm area of heterogeneous attenuation noted in the dome of the liver. Gallbladder and bile ducts: Gallbladder is surgically absent. Pancreas: Normal. No ductal dilation. Spleen: Normal. No splenomegaly. Adrenal glands: Normal. No mass. Kidneys and ureters: Multiple simple appearing bilateral renal cortical cysts appear similar to previous. No evidence of hydronephrosis. Stomach and bowel: Unremarkable. No obstruction. No mucosal thickening. Appendix: No evidence of appendicitis. Intraperitoneal space: Moderate amount of ascites noted throughout the abdomen and pelvis. Vasculature: Unremarkable. No abdominal aortic aneurysm. Lymph nodes: Unremarkable. No enlarged lymph nodes. Urinary bladder: Unremarkable as visualized. Reproductive: Unremarkable as visualized. Bones/joints: Mild scoliosis and moderate degenerative changes noted throughout the lower spine. Soft tissues: Unremarkable. IMPRESSION: 1. No acute posttraumatic changes in the abdomen or pelvis 2. Approximally 6 cm area of heterogeneous density in the dome of the liver, which appears otherwise diffusely fatty. Overlying contracted contour of the liver suggests this may represent chronic scar tissue in retrospect appears to have been present from the study of July 2022. Further evaluation with non-emergent liver MRI is recommended. (Reference: Moose) References: Moose WISE, et al. Management of Incidental Liver Lesions on CT: A White Paper of the ACR Incidental Findings Committee. J Am Franklin Radiol. 2017;14(11):1947-8067. Dictated and Authenticated by: Steve Chawla MD. Ordering:KATE Guzman MD
[2022-11-15] MEDS: Normal Saline - Diluent 50 ML VIAL IJ (01:12)
[2022-11-15] MEDS: Normal Saline 1,000 ML 1000 ML IV (01:12)
[2022-11-15] MEDS: ACETAMINOPHEN 1,000 MG/100 ML BTL 400 MG IVPB (01:13)
--- NOTE | 2022-11-15 01:18 | DI.VRAD_ITS ---
PROCEDURE INFORMATION: Exam: CT Thoracic Spine Without Contrast Exam date and time: 11/15/2022 12:22 AM Age: 77 years old Clinical indication: Injury or trauma; Blunt trauma (contusions or hematomas); Injury date: 11/14/22; Injury details: Fall, pain. R/O FX TECHNIQUE: Imaging protocol: Computed tomography of the thoracic spine without contrast. Radiation optimization: All CT scans at this facility use at least one of these dose optimization techniques: automated exposure control; mA and/or kV adjustment per patient size (includes targeted exams where dose is matched to clinical indication); or iterative reconstruction. COMPARISON: CT HEAD CERVICAL SPINE WO 11/14/2022 11:56 PM FINDINGS: Bones/joints: Osseous alignment is normal. [id number] multilevel degenerative disc changes are noted. No acute fracture. Multiple old bilateral posterior rib fractures noted. Soft tissues: Unremarkable. IMPRESSION: Chronic osseous changes. No acute fracture PROCEDURE INFORMATION: Exam: CT Lumbar Spine Without Contrast Exam date and time: 11/15/2022 12:22 AM Age: 77 years old Clinical indication: Injury or trauma; Blunt trauma (contusions or hematomas); Injury date: 11/14/22; Injury details: Fall, pain. R/O FX TECHNIQUE: Imaging protocol: Computed tomography of the lumbar spine without contrast. Radiation optimization: All CT scans at this facility use at least one of these dose optimization techniques: automated exposure control; mA and/or kV adjustment per patient size (includes targeted exams where dose is matched to clinical indication); or iterative reconstruction. COMPARISON: CT ABDOMEN PELVIS W 10/17/2022 6:19 PM FINDINGS: Bones/joints: There is mild levoscoliosis of the lumbar spine. No vertebral body compression or acute fracture. Severe degenerative disc changes noted L1-L2, L2-L3 and L4-L5 disc levels. Severe bilateral facet arthropathy noted L4-L5 producing significant grade 1 anterolisthesis of L4. Soft tissues: Unremarkable. IMPRESSION: Severe degenerative changes of the lumbar spine. No acute fracture Dictated and Authenticated by: Steve Chawla MD. Ordering:KATE Guzman MD
--- NOTE | 2022-11-15 01:23 | DI.VRAD_ITS ---
PROCEDURE INFORMATION: Exam: XR Right Shoulder Exam date and time: 11/15/2022 12:39 AM Age: 77 years old Clinical indication: Injury or trauma; Blunt trauma (contusions or hematomas); Shoulder; Right; Injury date: 11/14/21; Injury details: Fall, pain; Additional info: +etoh TECHNIQUE: Imaging protocol: Radiologic exam of the right shoulder. Views: 2 or more views. COMPARISON: CR XR SHOULDER RT COMPLETE 2+V 12/16/2020 8:38 AM FINDINGS: Bones/joints: Chronic deformity of the distal clavicle compatible with old fracture noted. There is now lucency through the deformed portion of the clavicle raising concern for acute fracture. Chronic deformity of the humeral head compatible with old fracture. Subchondral lucency in the humeral head could represent acute fracture or avascular necrosis. Old, healed right rib fractures are noted. Glenohumeral joint is normally aligned. Soft tissues: Normal. IMPRESSION: Findings concerning for acute fracture distal clavicle and questionable subchondral fracture of the humeral head superimposed upon significant chronic findings as noted. Dictated and Authenticated by: Steve Chawla MD. Ordering:KATE Guzman MD
--- NOTE | 2022-11-15 01:27 | DI.CT_ITS ---
Exam(s) 3D RECON ON CT WORKSTATION EXAM: 3D RECON ON CT WORKSTATION CLINICAL HISTORY: R clav fx/possible acute on chronic R shoulder fx TECHNIQUE: COMPARISON: CT CT THORACIC LUMBAR SPINE REC from 11/15/2022 FINDINGS: There is an acute fracture in the superior aspect of the humeral head. This is predominantly in the medial aspect of the humeral head. There is nonacute-old deformity of the right humeral head, related to prior healed fracture at site. No evidence of acute fracture of the osseous glenoid. Fracture deformity in the lateral aspect of th e clavicle is noted which is not acute in appearance. Multiple healed rib fractures noted. IMPRESSION: In addition to a nonacute fracture deformity of the humeral head-neck there is also an acute fracture of the superior aspect of the humeral head in its medial half. There is no dislocation glenohumeral joint. Previous injury involving the outer 3rd of the ipsilateral clavicle.
--- NOTE | 2022-11-15 01:59 | NUR.NOTE ---
Pt placed on [facility] referral for a walker with right arm stabilization.
[2022-11-15] MEDS: LORazepam 1 MG TAB PO (02:15)
== END 2022-11-15 04:19 | disposition home or self-care (01) ==
PROVIDERS: Emergency Provider Physician Assistant; PCP Family Medicine
DX: S42.001A Fracture of unspecified part of right clavicle, initial encounter for closed fracture (principal); S42.201A Unspecified fracture of upper end of right humerus, initial encounter for closed fracture; F10.129 Alcohol abuse with intoxication, unspecified; I10 Essential (primary) hypertension; R07.81 Pleurodynia; R29.6 Repeated falls; Y90.8 Blood alcohol level of 240 mg/100 ml or more; Z79.82 Long term (current) use of aspirin; W01.10XA Fall on same level from slipping, tripping and stumbling with subsequent striking against unspecified object, initial encounter; Y92.009 Unspecified place in unspecified non-institutional (private) residence as the place of occurrence of the external cause; Z79.899 Other long term (current) drug therapy
CPT/HCPCS: 74177; 76376; 80053; 96361; 96374; 99285; 70450; 71260; 72125; 73030; 80320; 85025; 99284; J0131; J3490

== ENCOUNTER 2022-11-25 02:44 | Emergency (ER) | payer MEDICARE, SELFPAY ==
[2022-11-25] VITALS (39 sets, daily range): BP systolic 156–193; BP diastolic 77–106; PULSE 87–102; RESP 11–26; TEMP 36.7–37.1; O2SAT 94–98
--- NOTE | 2022-11-25 02:30 | DI.CT_ITS ---
Exam(s) CT HEAD CERVICAL SPINE WO EXAM: CT HEAD CERVICAL SPINE WO CLINICAL HISTORY: fall yesterday, trauma. TECHNIQUE: Imaging Protocol: Axial computed tomography images with coronal and sagittal reformatted images were created and reviewed COMPARISON: CT CT HEAD CERVICAL SPINE WO from 11/14/2022 FINDINGS: Head CT Ventricles and Extra axial spaces: Normal in size and morphology for the patient's age. Hemorrhage: None. Cerebral parenchyma: Stable atrophy. Mild white matter changes of small vessel disease. Midline shift: None. Brainstem/Cerebellum: Normal. Calvarium: Normal. Visualized Paranasal sinuses/Mastoids: Clear. Cervical Spine CT BONES: Vertebral body heights are maintained. Alignment is normal. There is no evidence of acute cerv ical spine fracture. Right clavicle fracture partially included in field of view. Degenerative disc changes and facet degenerative changes are seen . Stable appearance from prior. R eversal of the normal cervical lordosis again noted. SOFT TISSUES: No paraspinal hematoma. The airway appears intact. No pneumothorax is seen at the lung apices. IMPRESSION: Head CT: No acute abnormality. C-spine CT: Degenerative changes, no acute abnormality. Right clavicle fracture. RADIATION DOSE DELIVERED: 1,294.87mGy.cm Total DLP DATA REPOSITORY: All CT scans at this facility are submitted to the National Radiology Data Registry (NRDR) Dose Index Registry (DIR) with the [employer] ([employer]). RADIATION OPTIMIZATION: All CT scans at this facility use at least one of these dose optimization te chniques: automated exposure control; mA and/or kV adjustment per patient size (includes targeted exa ms where dose is matched to clinical indication); or iterative reconstruction.
--- NOTE | 2022-11-25 02:30 | DI.CT_ITS ---
Exam(s) CT CHEST/ABD/PEL W EXAM: CT CHEST/ABD/PEL W CLINICAL HISTORY: trauma, fell yesterday, right chest and flank pain. TECHNIQUE: Imaging Protocol: Axial computed tomography images with coronal and sagittal reformatted images were created and reviewed CONTRAST MATERIAL: Intravenous: Omnipaque 350 Contrast volume:100 ml Oral: yes / no COMPARISON: CT CHEST FOR PULMONARY EMBOLUS from 02/03/2017 CT ABD PELVIS WO CONTRAST from 03/19/2017 CT CHEST ABD PELVIS WITH CONTRAST from 08/27/[address] CHEST/ABD/PEL WO from 03/11/[address] ABDOMEN PELVIS WO from 07/28/2022 CR XR CHEST 2V PA LATERAL from 07/29/[address] CT [address] ON [address] WORKSTATION from 11/15/2022 FINDINGS: CHEST: Tracheobronchial tree: Patent where visualized. Pulmonary parenchyma: Right upper lobe density, increasing when compared with prior exams back to 201 7.. Pleura: No effusion or pneumothorax. Lymph nodes: Within normal limits. Aorta: ascending aorta 4.1 cm. Mild atherosclerotic changes. Heart: Mildly enlarged. No pericardial effusion. Bones: Acute fracture lateral right 8th and 9th ribs. Multiple old bilateral rib fractures. Right h umeral fracture.. No lytic or blastic lesions.Stable mild compression of the inferior endplate of T1 2. ABDOMEN and PELVIS: : Liver: Cirrhotic appearance.. No measurable mass. Gallbladder and biliary tract: Status post cholecystectomy. No radiodense calculus or dilation. Pancreas: Normal density, no abnormal calcifications or inflammatory process. Spleen: Normal. Kidneys: Normal size, contour and axis. No radiodense stones or obstructive uropathy. No suspicious m asses seen. Adrenal glands: No masses seen. Aorta: Abdominal portion non-dilated. Lymph nodes: Within normal limits. Soft tissues: Unremarkable. Lobulated masses in the presacral fat, increasing over time. Bladder: Symmetric distention, no gross wall thickening. Bowel: No obstruction or bowel wall thickening. Peritoneal cavity: Ascites. Bones: Degenerative changes. No evidence of fracture. Reproductive organs: Within normal limits. IMPRESSION: Right 8th and 9th rib fractures. No evidence of pneumothorax. Right upper lobe opacity, suspicious for mass, increasing over time. Cirrhotic liver. Ascites. No acute abnormality in the abdomen or pelvis. Lobulated mass in the presacral fat, increasing in size over time. RADIATION DOSE DELIVERED: 815.92mGy.cm Total DLP DATA REPOSITORY: All CT scans at this facility are submitted to the National Radiology Data Registry (NRDR) Dose Index Registry (DIR) with the [employer] (ACR). RADIATION OPTIMIZATION: All CT scans at this facility use at least one of these dose optimization te chniques: automated exposure control; mA and/or kV adjustment per patient size (includes targeted exa ms where dose is matched to clinical indication); or iterative reconstruction.
--- NOTE | 2022-11-25 02:50 | W.ED.GENAD ---
Discharge Plan Disposition Patient Disposition: Home Condition: Stable Discharge Details Clinical Impression: Multiple rib fractures, Closed right clavicular fracture, Cervical spondylosis, Fracture of humeral head, right, closed, Opacity of lung on imaging study, Abdominal ascites, Cirrhosis of liver, Pelvic mass, Alcohol intoxication, Fall Primary Care Provider: Lavelle Galindo ED Provider: James Crenshaw Home Meds and New Rx's Prescriptions: Continued Xiidra 5 % dropperette 1 drp ophthalmic (eye) BID Rx Instructions: administer approximately 12 hours apart budesonide [Pulmicort] 0.5 mg/2 mL suspension for nebulization 0.5 mg inhalation DAILY Qty: 60 5RF Patient Comments: pt states meds come in blister pack labeled daily by [employer] and she takes them but doesn't know the names furosemide 20 mg tablet See Rx Instructions PO BID Qty: 180 3RF Patient Comments: pt states meds come in blister pack labeled daily by [employer] and she takes them but doesn't know the names Rx Instructions: orally twice a day; 3 tabs (60mg) in AM and 2 tabs(40mg in afternoon; ipratropium-albuterol 0.5 mg-3 mg(2.5 mg base)/3 mL solution for nebulization 3 ml inhalation Q6H PRN Patient Comments: pt states meds come in blister pack labeled daily by [employer] and she takes them but doesn't know the names Myrbetriq 50 mg tablet extended release 24 hr 50 mg PO DAILY Qty: 30 12RF lorazepam 1 mg tablet 0.5 - 1 mg PO QHS PRN (Reason: sleep) Qty: 15 0RF Patient Comments: pt states meds come in blister pack labeled daily by [employer] and she takes them but doesn't know the names albuterol sulfate [Ventolin HFA] 90 mcg/actuation HFA aerosol inhaler 2 puff inhalation QID PRN (Reason: shortness of breath or wheezing) Qty: 8.5 1RF amlodipine 10 mg tablet 10 mg PO DAILY Qty: 90 3RF Patient Comments: pt states meds come in blister pack labeled daily by [employer] and she takes them but doesn't know the names buspirone 5 mg tablet 5 mg PO BID Qty: 60 5RF Patient Comments: pt states meds come in blister pack labeled daily by [employer] and she takes them but doesn't know the names folic acid 1 mg tablet 1 mg PO DAILY Qty: 90 3RF Patient Comments: pt states meds come in blister pack labeled daily by [employer] and she takes them but doesn't know the names melatonin 3 mg capsule 6 mg PO HS Qty: 180 3RF Patient Comments: pt states meds come in blister pack labeled daily by [employer] and she takes them but doesn't know the names metoprolol tartrate 50 mg tablet 50 mg PO DAILY Qty: 90 3RF Patient Comments: pt states meds come in blister pack labeled daily by [employer] and she takes them but doesn't know the names mirtazapine 7.5 mg tablet 7.5 mg PO QHS Qty: 90 4RF Patient Comments: pt states meds come in blister pack labeled daily by [employer] and she takes them but doesn't know the names sucralfate 1 gram tablet 1 g PO BID Qty: 60 11RF Patient Comments: pt states meds come in blister pack labeled daily by [employer] and she takes them but doesn't know the names thiamine HCl (vitamin B1) 100 mg tablet 100 mg PO DAILY Qty: 90 3RF Patient Comments: pt states meds come in blister pack labeled daily by [employer] and she takes them but doesn't know the names valacyclovir [Valtrex] 500 mg tablet 500 mg PO DAILY Qty: 90 3RF Patient Comments: pt states meds come in blister pack labeled daily by [employer] and she takes them but doesn't know the names Rx Instructions: Take 500 mg BID for 3 days, then take daily fluticasone propionate 50 mcg/actuation spray,suspension 2 spray NS daily prn Qty: 16 5RF Patient Comments: pt states meds come in blister pack labeled daily by [employer] and she takes them but doesn't know the names cyanocobalamin (vitamin B-12) [Vitamin B-12] 500 mcg tablet 1,000 mcg PO DAILY Qty: 180 3RF Patient Comments: pt states meds come in blister pack labeled daily by [employer] and she takes them but doesn't know the names ferrous sulfate 325 mg (65 mg iron) tablet 325 mg PO BID Qty: 180 3RF Patient Comments: pt states meds come in blister pack labeled daily by [employer] and she takes them but doesn't know the names Rx Instructions: do not take within 2 hours of antibiotics multivitamin [Multiple Vitamins] Tablet 1 tab PO DAILY Qty: 90 3RF Patient Comments: pt states meds come in blister pack labeled daily by [employer] and she takes them but doesn't know the names quetiapine 25 mg tablet See Rx Instructions PO BID Qty: 60 5RF Patient Comments: pt states meds come in blister pack labeled daily by [employer] and she takes them but doesn't know the names Rx Instructions: 0.5 tab PO twice a day; spironolactone [Aldactone] 50 mg tablet 50 mg PO BID Qty: 180 3RF Patient Comments: pt states meds come in blister pack labeled daily by [employer] and she takes them but doesn't know the names venlafaxine 75 mg capsule,extended release 24hr 75 mg PO DAILY Qty: 90 3RF Hold Instructions: Home Medication placed on hold at Doctor's office Patient Comments: pt states meds come in blister pack labeled daily by [employer] and she takes them but doesn't know the names. aspirin 81 mg tablet,delayed release (DR/EC) 81 mg PO DAILY Qty: 90 3RF Patient Comments: pt states meds come in blister pack labeled daily by [employer] and she takes them but doesn't know the names carboxymethylcellulose sodium [Refresh Plus] 0.5 % Dropperette 1 drp OU Q4H WHILE AWAKE Qty: 30 0RF Patient Comments: pt states meds come in blister pack labeled daily by [employer] and she takes them but doesn't know the names pantoprazole 40 mg Tablet,Delayed Release (Dr/Ec) 40 mg PO BID@729,1999 Qty: 60 0RF Patient Comments: pt states meds come in blister pack labeled daily by [employer] and she takes them but doesn't know the names ondansetron HCl 4 mg Tablet 4 mg PO Q4H PRN PRNQty: 20 0RF Discharge Instructions Instructions: How to Use an Incentive Spirometer (ED), Clavicle Fracture (ED), Rib Fracture (ED), Alcohol Intoxication (ED) Additional Instructions: Use sling right arm until cleared by your doctor. Please contact your primary care physician to arrange follow-up. Please stop abusing alcohol. You have a mass noted in your pelvis that needs to be followed up. There is also an opacity noted in your lungs. Please discuss these findings with your doctor to arrange timely outpatient diagnostic follow-up. Use incentive spirometer as reviewed with nursing every 2 hours while awake over the next week. Return to the ER immediately for any worsening or new concerning symptoms. Referrals: Lavelle Galindo MD [Primary Care Provider] - Discharge Data Discharge Date/Time-TO BE ENTERED AT DEPARTURE: 11/25/22 09:18 Medical Decision Making 300 --77-year-old female with multiple medical problems including history of alcohol use disorder, frequent falls, here with right lower lateral chest, right upper quadrant abdominal and right flank pain after trip and fall from standing to the ground yesterday. Concerned about the potential for rib fractures as well as pneumothorax. Consider also intra-abdominal traumatic injury and retroperitoneal hemorrhage. Plan to obtain CT imaging of the chest abdomen pelvis. Unclear if patient sustained head trauma during fall. She does seem somewhat confused. Consider acute intracranial traumatic hemorrhage -we will obtain CT of the head. Consider cervical spine fracture given mechanism and potential for distracting injury. Lidocaine patch applied to area of bruising right lower lateral chest. 620 --CT of the head was interpreted by radiology: No acute intracranial findings. CT of the C-spine was interpreted by radiology: No cervical spine fracture. Cervical spondylosis. Right clavicle fracture. CT of the chest was interpreted by radiology: Nondisplaced acute right lateral eighth and ninth rib fractures, no pneumothorax, right upper lobe opacity unchanged, right humeral head fractures. Multiple healed rib fractures. CT of the abdomen pelvis interpreted by radiology: Cirrhotic liver, ascites, cholecystectomy, bilobed 6.2 x 3.8 mixed attenuation mass possibly containing fat in the right lower pelvis, enlarged from 02/18/2021, recommend further evaluation for malignancy, possible malignant teratoma. Labs reviewed and alcohol level significantly elevated at 184. Magnesium low at 1.5. I will replace with magnesium 1 g IV. Plan to monitor for sobriety. I will give thiamine 100 mg IV. 730 --patient reassessed and clinically sober. All results were discussed with the patient. Plan will be for patient to use sling for her clavicle and shoulder fractures. Nursing to review incentive spirometry with patient. HPI General Mode of arrival: EMS. Date/Time Provider Initiated Documentation: 11/25/22 02:50. Limitations to Documentation: other (poor historian). Information obtained by: patient and EMS. HPI Narrative: 77-year-old female with multiple medical problems including history of alcohol use disorder, frequent falls, here today having fallen yesterday with complaint of right chest, back and flank pain. Patient notes she tripped on her rug and fell from standing to the floor landing on her right side yesterday. EMS responded yesterday and she refused transport. She notes today pain is persistent and worse and she is having trouble sitting up in bed and ambulating. She denies associated shortness of breath. She does not recall if she sustained head trauma. She last consumed alcohol 3 days ago. Related Data Home Medications Medication Instructions Recorded Confirmed carboxymethylcellulose sodium 0.5 1 drp OU Q4H WHILE AWAKE #30 ea 06/20/19 11/26/22 % eye drops in a dropperette (Refresh Plus) lifitegrast 5 % eye drops in a 1 drp ophthalmic (eye) BID 08/05/20 11/26/22 dropperette (Xiidra) ipratropium 0.5 mg-albuterol 3 mg 3 ml inhalation Q6H PRN 12/25/21 11/26/22 (2.5 mg base)/3 mL nebulization soln albuterol sulfate 90 mcg/actuation 2 puff inhalation QID PRN 02/08/22 11/26/22 aerosol inhaler (Ventolin HFA) shortness of breath or wheezing #8.5 grams amlodipine 10 mg tablet 10 mg PO DAILY #90 tabs 02/08/22 11/26/22 buspirone 5 mg tablet 5 mg PO BID #60 tabs 02/08/22 11/26/22 folic acid 1 mg tablet 1 mg PO DAILY #90 tabs 02/08/22 11/26/22 melatonin 3 mg capsule 6 mg PO HS #180 caps 02/08/22 11/26/22 metoprolol tartrate 50 mg tablet 50 mg PO DAILY #90 tabs 02/08/22 11/26/22 mirtazapine 7.5 mg tablet 7.5 mg PO QHS #90 tabs 02/08/22 11/26/22 sucralfate 1 gram tablet 1 g PO BID #60 tabs 02/08/22 11/26/22 thiamine HCl (vitamin B1) 100 mg 100 mg PO DAILY #90 tabs 02/08/22 11/26/22 tablet valacyclovir 500 mg tablet 500 mg PO DAILY #90 tabs 02/08/22 11/26/22 (Valtrex) fluticasone propionate 50 2 spray NS daily prn #16 grams 03/06/22 11/26/22 mcg/actuation nasal spray,suspension budesonide 0.5 mg/2 mL suspension 0.5 mg (2 mL) inhalation DAILY #60 05/06/22 11/26/22 for nebulization (Pulmicort) mL pantoprazole 40 mg tablet,delayed 40 mg PO BID@07,1999 #60 tabs 05/21/22 11/26/22 release cyanocobalamin (vitamin B-12) 500 1,000 mcg PO DAILY #180 tabs 07/10/22 11/26/22 mcg tablet (Vitamin B-12) ferrous sulfate 325 mg (65 mg 325 mg PO BID #180 tabs 07/10/22 11/26/22 iron) tablet multivitamin (Multiple Vitamins 1 tab PO DAILY #90 tabs 07/10/22 11/26/22 tablet) quetiapine 25 mg tablet See Rx Instructions PO BID #60 tabs 07/10/22 11/26/22 spironolactone 50 mg tablet 50 mg PO BID #180 tabs 07/10/22 11/26/22 (Aldactone) venlafaxine 75 mg capsule,extended 75 mg PO DAILY #90 caps 07/10/22 11/26/22 release 24 hr mirabegron 50 mg tablet,extended 50 mg PO DAILY #30 tabs 07/20/22 11/26/22 release 24 hr (Myrbetriq) aspirin 81 mg tablet,delayed 81 mg PO DAILY #90 tabs 08/05/22 11/26/22 release furosemide 20 mg tablet See Rx Instructions PO BID #180 08/11/22 11/26/22 tabs ondansetron HCl 4 mg tablet 4 mg PO Q4H PRN PRN #20 tabs 10/20/22 11/26/22 lorazepam 1 mg tablet 0.5 - 1 mg PO QHS PRN sleep #15 10/28/22 11/26/22 tabs Previous Rx's Medication Instructions Recorded carboxymethylcellulose sodium 0.5 1 drp OU Q4H WHILE AWAKE #30 ea 06/20/ % eye drops in a dropperette (Refresh Plus) albuterol sulfate 90 mcg/actuation 2 puff inhalation QID PRN 02/08/22 aerosol inhaler (Ventolin HFA) shortness of breath or wheezing #8.5 grams amlodipine 10 mg tablet 10 mg PO DAILY #90 tabs 02/08/22 buspirone 5 mg tablet 5 mg PO BID #60 tabs 02/08/22 folic acid 1 mg tablet 1 mg PO DAILY #90 tabs 02/08/22 melatonin 3 mg capsule 6 mg PO HS #180 caps 02/08/22 metoprolol tartrate 50 mg tablet 50 mg PO DAILY #90 tabs 02/08/22 mirtazapine 7.5 mg tablet 7.5 mg PO QHS #90 tabs 02/08/22 sucralfate 1 gram tablet 1 g PO BID #60 tabs 02/08/22 thiamine HCl (vitamin B1) 100 mg 100 mg PO DAILY #90 tabs 02/08/22 tablet valacyclovir 500 mg tablet 500 mg PO DAILY #90 tabs 02/08/22 (Valtrex) fluticasone propionate 50 2 spray NS daily prn #16 grams 03/06/22 mcg/actuation nasal spray,suspension budesonide 0.5 mg/2 mL suspension 0.5 mg (2 mL) inhalation DAILY #60 05/06/22 for nebulization (Pulmicort) mL pantoprazole 40 mg tablet,delayed 40 mg PO BID@0730,1999 #60 tabs 05/21/22 release cyanocobalamin (vitamin B-12) 500 1,000 mcg PO DAILY #180 tabs 07/10/22 mcg tablet (Vitamin B-12) ferrous sulfate 325 mg (65 mg 325 mg PO BID #180 tabs 07/10/22 iron) tablet multivitamin (Multiple Vitamins 1 tab PO DAILY #90 tabs 07/10/22 tablet) quetiapine 25 mg tablet See Rx Instructions PO BID #60 tabs 07/10/22 spironolactone 50 mg tablet 50 mg PO BID #180 tabs 07/10/22 (Aldactone) venlafaxine 75 mg capsule,extended 75 mg PO DAILY #90 caps 07/10/22 release 24 hr mirabegron 50 mg tablet,extended 50 mg PO DAILY #30 tabs 07/20/22 release 24 hr (Myrbetriq) aspirin 81 mg tablet,delayed 81 mg PO DAILY #90 tabs 08/05/22 release furosemide 20 mg tablet See Rx Instructions PO BID #180 08/11/22 tabs ondansetron HCl 4 mg tablet 4 mg PO Q4H PRN PRN #20 tabs 10/20/22 lorazepam 1 mg tablet 0.5 - 1 mg PO QHS PRN sleep #15 10/28/22 tabs Allergies Allergy/AdvReac Type Severity Reaction Status Date / Time Penicillins Allergy Mild Rash Verified 11/25/22 08:31 ramipril Allergy Unknown ITCHING Verified 11/25/22 08:31 meperidine [From Demerol] AdvReac Severe Nausea Verified 11/25/22 08:31 bupropion AdvReac Mild GI upset Verified 11/25/22 08:31 AMBER Inhibitors AdvReac Unknown COUGH Verified 11/25/22 08:31 alendronate sodium AdvReac Unknown GI Distress Verified 11/25/22 08:31 clarithromycin AdvReac Unknown intolerant Verified 11/25/22 08:31 paroxetine AdvReac Unknown Diarrhea Verified 11/25/22 08:31 General Stated Complaint: Nk/Back Pain JORDAN: 3 Review of Systems All systems reviewed & are unremarkable except as noted in HPI and below Constitutional Constitutional: Denies fever(s) Gastrointestinal Gastrointestinal: Reports abdominal pain (Right upper and right flank) PFSH All Active Problems (Updated 11/25/22 @ 08:36 by Aydin Mauricio MD) Closed fracture of right clavicle (Acute) Frequent falls (Acute) Closed right humeral fracture (Acute) Alcohol intoxication (Acute) Multiple rib fractures (Acute) Closed right clavicular fracture (Acute) Cervical spondylosis (Acute) Fracture of humeral head, right, closed (Acute) Opacity of lung on imaging study (Acute) Abdominal ascites (Acute) Cirrhosis of liver (Acute) Pelvic mass (Acute) Alcohol intoxication (Acute) Fall (Acute) Fatigue (Acute) Sleep disturbance (Acute) Sinus tachycardia (Acute) High anion gap metabolic acidosis (Acute) Elevated blood pressure reading with diagnosis of hypertension (Acute) Pincer nail deformity (Acute) Insomnia (Acute) Thrombocytopenia (Chronic) Elevated bilirubin (Acute) Mixed stress and urge urinary incontinence (Acute) Thyroid nodule (Acute) Anxiety (Chronic) Adverse effect of metronidazole (Acute) Medication monitoring encounter (Acute) Advance care planning (Acute) Cirrhosis of liver with ascites (Acute) Animal bite of right hand with infection (Acute) Umbilical hernia (Acute) Hyperbilirubinemia (Acute) Shortness of breath (Acute) Elevated blood pressure reading without diagnosis of hypertension (Acute) Left arm pain (Acute) Ambulatory dysfunction (Acute) Incontinence (Acute) Anorexia (Acute) Headache (Acute) Depression (Chronic) Chest pain (Acute) Foot pain, right (Acute) Tendinitis of left rotator cuff (Acute) Macrocytosis (Acute 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 Leukopenia (Acute) Headache (Acute) Epigastric abdominal pain (Acute) Calcific tendinitis of left shoulder (Acute) Pulmonary mass (Acute) spiculated mass Pneumonia (Acute) Depression with suicidal ideation (Acute) Alcohol abuse (Chronic) Diarrhea (Acute) Epigastric pain (Acute) Dehydration (Acute) Discharge planning issues (Acute) Difficult intravenous access (Acute) Multiple IV attempts, usually requires ultrasound placement. PTSD (post-traumatic stress disorder) (Acute) Anemia (Chronic) Depression (Chronic) Foot pain, right (Acute) T12 compression fracture (Acute) Presacral mass (Chronic) Deviated nasal septum (Acute) Frequent falls (Chronic) Head injury (Acute) Ambulatory dysfunction (Chronic) Shoulder pain, right (Chronic) Suicidal ideation (Acute) Dry eye (Acute) Pruritus (Acute) Dystrophic nail (Acute) AMBER (acute kidney injury) (Acute) Iron deficiency anemia (Chronic) Fall (Acute) Atelectasis of left lung (Chronic) Advance directive on file (Acute) Nodule of upper lobe of right lung (Acute ~09/13/18) 09/13/18 [facility]; 12mm SPICULATED -kb Cataract (Chronic 11/07/15) Hypertension (Chronic) high today; she will check readings at home Hyperlipidemia (Chronic) Back pain, chronic (Chronic) Depression (Chronic) Osteopenia (Chronic) Medical History Adjustment disorder with depressed mood Alcoholic ketosis Anemia Cervical radicular pain neck pain and [facility] 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) pls refrain from alcohol Chronic alcoholism she will not stop drinking unless she checks with me, so that we can help her avert withdrawal I do not think she is capable on her own--she would need placement to achieve required goal of 3 months of sobriety Chronic diarrhea Closed right humeral fracture Corneal ulcer, right (~08/23/18) 08/23/18; [facility]- Fracture of humerus, left, closed Genital herpes simplex recurrent gential; suppressive Valtrex GERD (gastroesophageal reflux disease) GI bleed (12/20/16) Hypertension Hypokalemia Hypokalemia Hypomagnesemia Incidental lung nodule, greater than or equal to 8mm 1cm, spiculated, stable for many years, recommend f/u in 6 mo Multiple rib fractures 03/11/19 [facility] Non-cardiac chest pain (09/21/16) [facility] [place]16 NEGATIVE MP Osteoarthritis Palliative care patient (03/21/17) Pancreatitis, alcoholic, acute Peripheral edema Photophobia of right eye Pleural effusion on left 03/11/19 [facility] Presacral mass (~09/15/18) 09/15/18 [facility] Sciatica right, epidural injuections [facility] Tubular adenoma of colon (01/28/17) Urinary incontinence 01/24/13 urethral suspension and sling [place] [facility] [place] (bladder suspension 1991) 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 Bladder repair. Repair bladder injury, simple S/P laparoscopic cholecystectomy (~05/19/22) Family History Mother No problems noted. Father , DROWNED at age 50. No problems noted. Sister Personal history of malignant neoplasm MELANOMA Sister No problems noted. Grandfather Personal history of malignant neoplasm STOMACH Grandfather Personal history of malignant neoplasm PROSTATE Grandmother Heart disease DC Acute ill-defined cerebrovascular disease Grandmother Personal history of malignant neoplasm UTERINE Aunt , DC Heart disease DC Aunt , DC Heart disease Brother No problems noted. Social History Smoking/Tobacco Use Status: Former Tobacco Use Quit Date: 08/29/80 Smoking risk assessment performed?: Yes Alcohol Intake: current Alcohol Intake frequency: 3 or more drinks per day Alcohol type: hard liquor Drug use: Never Substance use type: does not use Details: Last alcoholic drink Mike zhong, 2 days ago Current gender identity: female Do you feel safe at home: Yes Do you feel safe in your relationship?: No Additional Social history: Has 1 dog, 4 cats. Exam Const General: cooperative and no acute distress Nutritional Appearance: thin Orientation: alert and awake HENMT Head: normocephalic and atraumatic Mouth: moist mucous membranes Eyes Conjunctivae: normal conjunctivae Sclera: normal sclerae Neck Neck: trachea midline and supple Chest Chest: no crepitus and tenderness rib (rt low lateral) Resp Auscultation: clear to auscultation bilaterally, no rales, no rhonchi and no wheezes GI Palpation: soft, not firm, no guarding, no masses, not rigid and tender in the RUQ Skin General skin exam: no rashes or lesions noted Neuro General: patient alert, patient awake, oriented Patient Orientation: Person and Place and tone normal Extrem General: no edema Psych Appearance: disheveled Speech and Movement: speech and movement normal Course Vital Signs Vital signs: Vital Signs Temperature 37.1 C 11/25/22 02:24 Pulse 95 H 11/25/22 02:24 Respiratory Rate 17 11/25/22 02:24 Blood Pressure 175/94 H 11/25/22 02:24 Pulse Oximetry 96 11/25/22 02:24 Temperature 37.1 C 11/25/22 02:24 Temperature Source Oral 11/25/22 02:24 Pulse 95 H 11/25/22 02:24 Respiratory Rate 17 11/25/22 02:24 Blood Pressure 175/94 H 11/25/22 02:24 Blood Pressure Position Supine 11/25/22 02:24 Pulse Oximetry 96 11/25/22 02:24 Oxygen Delivery Method Room Air 11/25/22 02:24 Oxygen Flow Rate 0 11/25/22 02:24
[2022-11-25] MEDS: Lidocaine 5% Patch 1 PATCH TP (03:01)
[2022-11-25 03:07] LABS: Abs Immature Grans 0.04 10^3/uL (0.0-0.06); Absolute Basophil Count 0.02 10^3/uL (0.0-0.2); Absolute Lymphocyte Count 1.08 10^3/uL (1.2-3.4); Absolute Monocyte Count 0.31 10^3/uL (0.1-0.8); Absolute Neutrophil Count 1.69 10^3/uL (1.2-6.7); Basophils % 0.6; HCT 31.2 % (36.0-46.0); HGB 10.2 g/dL (11.2-15.7); Immature Grans % 1.3; Lymphocytes % 34.4; MCH 33.9 pg (27.0-33.0); MCHC 32.7 % (32.0-36.0); MCV 104 fL (80-95); MPV 8.7 fL (8.0-11.0); Monocytes % 9.9; Neutrophils % 53.8; Platelet Count 138 10^3/uL (130-400); RBC 3.01 10^6/uL (3.93-5.22); RDW 15.9 % (11.7-14.6); RDW-SD 60.8 fL; WBC 3.14 10^3/uL (4.4-10.8)
[2022-11-25 03:23] LABS: ALT 26 U/L (14-59); AST 40 U/L (15-37); Alkaline Phosphatase 185 U/L (46-116); Anion Gap 13.4 mmol/L (3-11); BUN 13 mg/dL (7-18); Bilirubin, Total 1.4 mg/dL (0.2-1.0); CO2 23.6 mmol/L (21.0-32.0); CREATININE 0.9 mg/dL (0.55-1.02); Calcium 8.8 mg/dL (8.5-10.1); Chloride 107 mmol/L (98-107); ETHANOL BLOOD 184.3 mg/dL (<10); Estimated GFR 66.26 (mL/min/1.73m2); Glucose 113 mg/dL (74-106); Magnesium 1.5 mg/dL (1.8-2.4); Potassium 3.4 mmol/L (3.5-5.1); Sodium 144 mmol/L (136-145); Total Protein 5.8 g/dL (6.4-8.2); Troponin I < 50 ng/L (<or=60)
[2022-11-25] MEDS: Omnipaque 350 MG/ML 100 ML BTL IJ (04:08)
[2022-11-25] MEDS: Normal Saline - Diluent 50 ML VIAL IJ (04:08)
[2022-11-25] MEDS: MAGNESIUM SULFATE 1 GM/100 ML BAG IVPB (04:13)
--- NOTE | 2022-11-25 05:02 | DI.VRAD_ITS ---
PROCEDURE INFORMATION: Exam: CT Head Without Contrast Exam date and time: 11/25/2022 3:57 AM Age: 77 years old Clinical indication: Injury or trauma; Concussion/head injury; Consciousness not specified; Injury details: Fall yesterday, trauma TECHNIQUE: Imaging protocol: Computed tomography of the head without contrast. Radiation optimization: All CT scans at this facility use at least one of these dose optimization techniques: automated exposure control; mA and/or kV adjustment per patient size (includes targeted exams where dose is matched to clinical indication); or iterative reconstruction. COMPARISON: CT HEAD CERVICAL SPINE WO 11/14/2022 11:56 PM FINDINGS: Brain: Periventricular white matter lucencies compatible with chronic microvascular ischemic changes. No intracranial hemorrhage. No mass effect or midline shift. Cerebral ventricles: The ventricles and sulci are prominent compatible with age-related involutional changes. Paranasal sinuses: Visualized sinuses are unremarkable. No fluid levels. Mastoid air cells: Visualized mastoid air cells are well aerated. Bones/joints: Old nasal bone fracture deformities bilaterally. No acute fracture. Soft tissues: Unremarkable. IMPRESSION: No acute intracranial findings. PROCEDURE INFORMATION: Exam: CT Cervical Spine Without Contrast Exam date and time: 11/25/2022 3:57 AM Age: 77 years old Clinical indication: Injury or trauma; Concussion/head injury; Consciousness not specified; Injury details: Fall yesterday, trauma TECHNIQUE: Imaging protocol: Computed tomography of the cervical spine without contrast. Radiation optimization: All CT scans at this facility use at least one of these dose optimization techniques: automated exposure control; mA and/or kV adjustment per patient size (includes targeted exams where dose is matched to clinical indication); or iterative reconstruction. COMPARISON: CT HEAD CERVICAL SPINE WO 11/14/2022 11:56 PM FINDINGS: Bones/joints: No acute cervical spine fracture or subluxation. Stable anterolisthesis at C3-C4 and C5-C6. There is multilevel degenerative disc disease and facet arthritis. There is a fracture of the distal aspect of the right clavicle. Soft tissues: Unremarkable. IMPRESSION: 1. No cervical spine fracture. 2. Cervical spondylosis as above. 3. Right clavicular fracture. Dictated and Authenticated by: Jose Weaver MD. Ordering:ALICIA Ramirez MD
--- NOTE | 2022-11-25 05:23 | DI.VRAD_ITS ---
PROCEDURE INFORMATION: Exam: CT Chest With Contrast; Diagnostic Exam date and time: 11/25/2022 4:01 AM Age: 77 years old Clinical indication: Injury or trauma; Fall; Generalized; Blunt trauma (contusions or hematomas); Additional info: Trauma, fell yesterday, right chest and flank pain TECHNIQUE: Imaging protocol: Diagnostic computed tomography of the chest with contrast. 3D rendering (Not supervised by radiologist): MIP and/or 3D reconstructed images were created by the technologist. Radiation optimization: All CT scans at this facility use at least one of these dose optimization techniques: automated exposure control; mA and/or kV adjustment per patient size (includes targeted exams where dose is matched to clinical indication); or iterative reconstruction. Contrast material: OMNI 350; Contrast volume: 100 ml; Contrast route: INTRAVENOUS (IV); COMPARISON: CT CHEST/ABD/PEL W 11/15/2022 12:22 AM FINDINGS: Thyroid: Small thyroid cysts Lungs: Right upper lobe opacity unchanged. Diffuse bronchial wall thickening and bronchiectasis. Bibasilar atelectasis Pleural spaces: Thickening of the left major fissure Heart: Unremarkable. No cardiomegaly. No pericardial effusion. Lymph nodes: Unremarkable. No enlarged lymph nodes. Vasculature: Unremarkable. No aortic aneurysm. Bones/joints: Right humeral head fractures. Multiple healed rib fractures. Nondisplaced acute right lateral 8th and 9th rib fractures Soft tissues: Unremarkable. IMPRESSION: 1. Nondisplaced acute right lateral 8th and 9th rib fractures 2. No pneumothorax PROCEDURE INFORMATION: Exam: CT Abdomen And Pelvis With Contrast Exam date and time: 11/25/2022 4:01 AM Age: 77 years old Clinical indication: Injury or trauma; Fall; Generalized; Blunt trauma (contusions or hematomas); Additional info: Trauma, fell yesterday, right chest and flank pain TECHNIQUE: Imaging protocol: Computed tomography of the abdomen and pelvis with contrast. 3D rendering (Not supervised by radiologist): MIP and/or 3D reconstructed images were created by the technologist. Radiation optimization: All CT scans at this facility use at least one of these dose optimization techniques: automated exposure control; mA and/or kV adjustment per patient size (includes targeted exams where dose is matched to clinical indication); or iterative reconstruction. Contrast material: OMNI 350; Contrast volume: 100 ml; Contrast route: INTRAVENOUS (IV); COMPARISON: CT CHEST/ABD/PEL W 11/15/2022 12:22 AM and 02/18/2021 FINDINGS: Lungs: See above Liver: Cirrhotic liver Gallbladder and bile ducts: Cholecystectomy Pancreas: Unremarkable. No ductal dilation. Spleen: Splenomegaly Adrenal glands: Normal. No mass. Kidneys and ureters: Unremarkable. No hydronephrosis. Stomach and bowel: Unremarkable. No obstruction. No mucosal thickening. Appendix: No evidence of appendicitis. Intraperitoneal space: Large volume ascites .Bilobed 6.2 x 3.8 cm mixed attenuation mass possibly containing fat in the right lower pelvis, enlarged from 02/18/2021, recommend further evaluation for malignancy, possible malignant teratoma Vasculature: Unremarkable. No abdominal aortic aneurysm. Lymph nodes: Unremarkable. No enlarged lymph nodes. Urinary bladder: Unremarkable as visualized. Reproductive: Unremarkable as visualized. Bones/joints: Mild diffuse degenerative changes are present. Grade 1 anterolisthesis L4-L5. Multilevel degenerative disc disease. Soft tissues: Small bilateral inguinal hernias containing fat Other findings: Multifocal sclerosis, unchanged IMPRESSION: 1. Cirrhotic liver 2. Ascites 3. Cholecystectomy 4. Bilobed 6.2 x 3.8 cm mixed attenuation mass possibly containing fat in the right lower pelvis, enlarged from 02/18/2021, recommend further evaluation for malignancy, possible malignant teratoma Dictated and Authenticated by: Dorota Breen MD. Ordering:ALICIA Ramirez MD
[2022-11-25] MEDS: THIAMINE 100 MG in Normal Saline 100 ML 200 MG IVPB (07:07)
== END 2022-11-25 09:18 | disposition home or self-care (01) ==
PROVIDERS: Emergency Provider Student in an Organized Health Care Education/Training Program; PCP Family Medicine
DX: S22.41XA Multiple fractures of ribs, right side, initial encounter for closed fracture (principal); S42.001A Fracture of unspecified part of right clavicle, initial encounter for closed fracture; S42.201A Unspecified fracture of upper end of right humerus, initial encounter for closed fracture; M47.812 Spondylosis without myelopathy or radiculopathy, cervical region; K74.60 Unspecified cirrhosis of liver; R91.8 Other nonspecific abnormal finding of lung field; E83.42 Hypomagnesemia; R18.8 Other ascites; F10.129 Alcohol abuse with intoxication, unspecified; I10 Essential (primary) hypertension; Y90.6 Blood alcohol level of 120-199 mg/100 ml; W01.0XXA Fall on same level from slipping, tripping and stumbling without subsequent striking against object, initial encounter
CPT/HCPCS: 74177; 80053; 86850; 86900; 86901; 96365; 96367; 99285; 70450; 71260; 72125; 80320; 83735; 84484; 85025; 99284; J3475; J3490

== ENCOUNTER 2022-11-25 08:22 | Emergency (ER) | payer MEDICARE, SELFPAY ==
[2022-11-25 08:26] VITALS: BP 178/97; PULSE 106; RESP 18; TEMP 36.6; O2SAT 97
--- NOTE | 2022-11-25 08:33 | ED.GENADUL_ITS ---
Discharge Plan Disposition Patient Disposition: Home Discharge Details Chief Complaint: Dizzy/Sync Clinical Impression: Fatigue Primary Care Provider: Lavelle Galindo ED Provider: Aydin Mauricio Meds and New Rx's Prescriptions: No Action Xiidra 5 % dropperette 1 drp ophthalmic (eye) BID Rx Instructions: administer approximately 12 hours apart budesonide [Pulmicort] 0.5 mg/2 mL suspension for nebulization 0.5 mg inhalation DAILY Qty: 60 5RF Patient Comments: pt states meds come in blister pack labeled daily by [facility] and she takes them but doesn't know the names furosemide 20 mg tablet See Rx Instructions PO BID Qty: 180 3RF Patient Comments: pt states meds come in blister pack labeled daily by [facility] and she takes them but doesn't know the names Rx Instructions: orally twice a day; 3 tabs (60mg) in AM and 2 tabs(40mg in afternoon; ipratropium-albuterol 0.5 mg-3 mg(2.5 mg base)/3 mL solution for nebulization 3 ml inhalation Q6H PRN Patient Comments: pt states meds come in blister pack labeled daily by [facility] and she takes them but doesn't know the names Myrbetriq 50 mg tablet extended release 24 hr 50 mg PO DAILY Qty: 30 12RF lorazepam 1 mg tablet 0.5 - 1 mg PO QHS PRN (Reason: sleep) Qty: 15 0RF Patient Comments: pt states meds come in blister pack labeled daily by [facility] and she takes them but doesn't know the names albuterol sulfate [Ventolin HFA] 90 mcg/actuation HFA aerosol inhaler 2 puff inhalation QID PRN (Reason: shortness of breath or wheezing) Qty: 8.5 1RF amlodipine 10 mg tablet 10 mg PO DAILY Qty: 90 3RF Patient Comments: pt states meds come in blister pack labeled daily by [facility] and she takes them but doesn't know the names buspirone 5 mg tablet 5 mg PO BID Qty: 60 5RF Patient Comments: pt states meds come in blister pack labeled daily by [facility] and she takes them but doesn't know the names folic acid 1 mg tablet 1 mg PO DAILY Qty: 90 3RF Patient Comments: pt states meds come in blister pack labeled daily by [facility] and she takes them but doesn't know the names melatonin 3 mg capsule 6 mg PO HS Qty: 180 3RF Patient Comments: pt states meds come in blister pack labeled daily by [facility] and she takes them but doesn't know the names metoprolol tartrate 50 mg tablet 50 mg PO DAILY Qty: 90 3RF Patient Comments: pt states meds come in blister pack labeled daily by [facility] and she takes them but doesn't know the names mirtazapine 7.5 mg tablet 7.5 mg PO QHS Qty: 90 4RF Patient Comments: pt states meds come in blister pack labeled daily by [facility] and she takes them but doesn't know the names sucralfate 1 gram tablet 1 g PO BID Qty: 60 11RF Patient Comments: pt states meds come in blister pack labeled daily by [facility] and she takes them but doesn't know the names thiamine HCl (vitamin B1) 100 mg tablet 100 mg PO DAILY Qty: 90 3RF Patient Comments: pt states meds come in blister pack labeled daily by [facility] and she takes them but doesn't know the names valacyclovir [Valtrex] 500 mg tablet 500 mg PO DAILY Qty: 90 3RF Patient Comments: pt states meds come in blister pack labeled daily by [facility] and she takes them but doesn't know the names Rx Instructions: Take 500 mg BID for 3 days, then take daily fluticasone propionate 50 mcg/actuation spray,suspension 2 spray NS daily prn Qty: 16 5RF Patient Comments: pt states meds come in blister pack labeled daily by [facility] and she takes them but doesn't know the names cyanocobalamin (vitamin B-12) [Vitamin B-12] 500 mcg tablet 1,000 mcg PO DAILY Qty: 180 3RF Patient Comments: pt states meds come in blister pack labeled daily by [facility] and she takes them but doesn't know the names ferrous sulfate 325 mg (65 mg iron) tablet 325 mg PO BID Qty: 180 3RF Patient Comments: pt states meds come in blister pack labeled daily by [facility] and she takes them but doesn't know the names Rx Instructions: do not take within 2 hours of antibiotics multivitamin [Multiple Vitamins] Tablet 1 tab PO DAILY Qty: 90 3RF Patient Comments: pt states meds come in blister pack labeled daily by [facility] and she takes them but doesn't know the names quetiapine 25 mg tablet See Rx Instructions PO BID Qty: 60 5RF Patient Comments: pt states meds come in blister pack labeled daily by [facility] and she takes them but doesn't know the names Rx Instructions: 0.5 tab PO twice a day; spironolactone [Aldactone] 50 mg tablet 50 mg PO BID Qty: 180 3RF Patient Comments: pt states meds come in blister pack labeled daily by [facility] and she takes them but doesn't know the names venlafaxine 75 mg capsule,extended release 24hr 75 mg PO DAILY Qty: 90 3RF Hold Instructions: Home Medication placed on hold at Doctor's office Patient Comments: pt states meds come in blister pack labeled daily by [facility] and she takes them but doesn't know the names. aspirin 81 mg tablet,delayed release (DR/EC) 81 mg PO DAILY Qty: 90 3RF Patient Comments: pt states meds come in blister pack labeled daily by [facility] and she takes them but doesn't know the names carboxymethylcellulose sodium [Refresh Plus] 0.5 % Dropperette 1 drp OU Q4H WHILE AWAKE Qty: 30 0RF Patient Comments: pt states meds come in blister pack labeled daily by [facility] and she takes them but doesn't know the names pantoprazole 40 mg Tablet,Delayed Release (Dr/Ec) 40 mg PO BID@729,1999 Qty: 60 0RF Patient Comments: pt states meds come in blister pack labeled daily by [facility] and she takes them but doesn't know the names ondansetron HCl 4 mg Tablet 4 mg PO Q4H PRN PRNQty: 20 0RF Discharge Instructions Instructions: Fatigue (ED) Medical Decision Making 77-year-old female history of alcoholism, multiple falls, recently evaluated for clavicular fracture and humeral head fracture as well as rib fractures. Cleared medically and discharged home this morning. While awaiting ride in waiting room patient felt fatigued and wanted to lay down. Patient was moved to room 4. Vital signs stable. Nontoxic and neurologically intact interactive. No signs of intoxication or withdrawal at this time. Low suspicion for ACS infectious process PE neurologic process or withdrawal at this time given history physical and recent complete evaluation. High clinical suspicion for malingering for a place to stay. Patient will be discharged when her ride is here. HPI General Date/Time Provider Initiated Documentation: 11/25/22 08:23 . HPI Narrative: 77-year-old female recently evaluated for falls and alcohol intoxication, found to have clavicular fracture and humeral head fracture. As well as multiple rib fractures. Was cleared medically, clinically sober and discharged home awaiting our CT, while patient was awaiting a ride home she no longer want to sit in the waiting room and felt more comfortable lying down. Was moved to room 4 to rest. Related Data Home Medications Medication Instructions Recorded Confirmed carboxymethylcellulose sodium 0.5 1 drp OU Q4H WHILE AWAKE #30 ea 06/20/19 11/25/22 % eye drops in a dropperette (Refresh Plus) lifitegrast 5 % eye drops in a 1 drp ophthalmic (eye) BID 08/05/20 11/25/22 dropperette (Xiidra) ipratropium 0.5 mg-albuterol 3 mg 3 ml inhalation Q6H PRN 12/25/21 11/25/22 (2.5 mg base)/3 mL nebulization soln albuterol sulfate 90 mcg/actuation 2 puff inhalation QID PRN 02/08/22 11/25/22 aerosol inhaler (Ventolin HFA) shortness of breath or wheezing #8.5 grams amlodipine 10 mg tablet 10 mg PO DAILY #90 tabs 02/08/22 11/25/22 buspirone 5 mg tablet 5 mg PO BID #60 tabs 02/08/22 11/25/22 folic acid 1 mg tablet 1 mg PO DAILY #90 tabs 02/08/22 11/25/22 melatonin 3 mg capsule 6 mg PO HS #180 caps 02/08/22 11/25/22 metoprolol tartrate 50 mg tablet 50 mg PO DAILY #90 tabs 02/08/22 11/25/22 mirtazapine 7.5 mg tablet 7.5 mg PO QHS #90 tabs 02/08/22 11/25/22 sucralfate 1 gram tablet 1 g PO BID #60 tabs 02/08/22 11/25/22 thiamine HCl (vitamin B1) 100 mg 100 mg PO DAILY #90 tabs 02/08/22 11/25/22 tablet valacyclovir 500 mg tablet 500 mg PO DAILY #90 tabs 02/08/22 11/25/22 (Valtrex) fluticasone propionate 50 2 spray NS daily prn #16 grams 03/06/22 11/25/22 mcg/actuation nasal spray,suspension budesonide 0.5 mg/2 mL suspension 0.5 mg (2 mL) inhalation DAILY #60 05/06/22 11/25/22 for nebulization (Pulmicort) mL pantoprazole 40 mg tablet,delayed 40 mg PO BID@07 #60 tabs 05/21/22 11/25/22 release cyanocobalamin (vitamin B-12) 500 1,000 mcg PO DAILY #180 tabs 07/10/22 11/25/22 mcg tablet (Vitamin B-12) ferrous sulfate 325 mg (65 mg 325 mg PO BID #180 tabs 07/10/22 11/25/22 iron) tablet multivitamin (Multiple Vitamins 1 tab PO DAILY #90 tabs 07/10/22 11/25/22 tablet) quetiapine 25 mg tablet See Rx Instructions PO BID #60 tabs 07/10/22 11/25/22 spironolactone 50 mg tablet 50 mg PO BID #180 tabs 07/10/22 11/25/22 (Aldactone) venlafaxine 75 mg capsule,extended 75 mg PO DAILY #90 caps 07/10/22 11/25/22 release 24 hr mirabegron 50 mg tablet,extended 50 mg PO DAILY #30 tabs 07/20/22 11/25/22 release 24 hr (Myrbetriq) aspirin 81 mg tablet,delayed 81 mg PO DAILY #90 tabs 08/05/22 11/25/22 release furosemide 20 mg tablet See Rx Instructions PO BID #180 08/11/22 11/25/22 tabs ondansetron HCl 4 mg tablet 4 mg PO Q4H PRN PRN #20 tabs 10/20/22 11/25/22 lorazepam 1 mg tablet 0.5 - 1 mg PO QHS PRN sleep #15 10/28/22 11/25/22 tabs Previous Rx's Medication Instructions Recorded carboxymethylcellulose sodium 0.5 1 drp OU Q4H WHILE AWAKE #30 ea 06/20/ % eye drops in a dropperette (Refresh Plus) albuterol sulfate 90 mcg/actuation 2 puff inhalation QID PRN 02/08/22 aerosol inhaler (Ventolin HFA) shortness of breath or wheezing #8.5 grams amlodipine 10 mg tablet 10 mg PO DAILY #90 tabs 02/08/22 buspirone 5 mg tablet 5 mg PO BID #60 tabs 02/08/22 folic acid 1 mg tablet 1 mg PO DAILY #90 tabs 02/08/22 melatonin 3 mg capsule 6 mg PO HS #180 caps 02/08/22 metoprolol tartrate 50 mg tablet 50 mg PO DAILY #90 tabs 02/08/22 mirtazapine 7.5 mg tablet 7.5 mg PO QHS #90 tabs 02/08/22 sucralfate 1 gram tablet 1 g PO BID #60 tabs 02/08/22 thiamine HCl (vitamin B1) 100 mg 100 mg PO DAILY #90 tabs 02/08/22 tablet valacyclovir 500 mg tablet 500 mg PO DAILY #90 tabs 02/08/22 (Valtrex) fluticasone propionate 50 2 spray NS daily prn #16 grams 03/06/22 mcg/actuation nasal spray,suspension budesonide 0.5 mg/2 mL suspension 0.5 mg (2 mL) inhalation DAILY #60 05/06/22 for nebulization (Pulmicort) mL pantoprazole 40 mg tablet,delayed 40 mg PO BID@0730,2000 #60 tabs 05/21/22 release cyanocobalamin (vitamin B-12) 500 1,000 mcg PO DAILY #180 tabs 07/10/22 mcg tablet (Vitamin B-12) ferrous sulfate 325 mg (65 mg 325 mg PO BID #180 tabs 07/10/22 iron) tablet multivitamin (Multiple Vitamins 1 tab PO DAILY #90 tabs 07/10/22 tablet) quetiapine 25 mg tablet See Rx Instructions PO BID #60 tabs 07/10/22 spironolactone 50 mg tablet 50 mg PO BID #180 tabs 07/10/22 (Aldactone) venlafaxine 75 mg capsule,extended 75 mg PO DAILY #90 caps 07/10/22 release 24 hr mirabegron 50 mg tablet,extended 50 mg PO DAILY #30 tabs 07/20/22 release 24 hr (Myrbetriq) aspirin 81 mg tablet,delayed 81 mg PO DAILY #90 tabs 08/05/22 release furosemide 20 mg tablet See Rx Instructions PO BID #180 08/11/22 tabs ondansetron HCl 4 mg tablet 4 mg PO Q4H PRN PRN #20 tabs 10/20/22 lorazepam 1 mg tablet 0.5 - 1 mg PO QHS PRN sleep #15 10/28/22 tabs Allergies Allergy/AdvReac Type Severity Reaction Status Date / Time Penicillins Allergy Mild Rash Verified 11/25/22 08:31 ramipril Allergy Unknown ITCHING Verified 11/25/22 08:31 meperidine [From Demerol] AdvReac Severe Nausea Verified 11/25/22 08:31 bupropion AdvReac Mild GI upset Verified 11/25/22 08:31 AMBER Inhibitors AdvReac Unknown COUGH Verified 11/25/22 08:31 alendronate sodium AdvReac Unknown GI Distress Verified 11/25/22 08:31 clarithromycin AdvReac Unknown intolerant Verified 11/25/22 08:31 paroxetine AdvReac Unknown Diarrhea Verified 11/25/22 08:31 General Stated Complaint: Dizzy/Sync JORDAN: 4 Review of Systems Narrative: Review of Systems Constitutional: negative Eyes: negative ENT: negative Cardiovascular: negative Respiratory: negative Gastrointestinal: negative : negative Musculoskeletal: negative Skin: negative Neurologic: negative Psych: negative PFSH All Active Problems (Updated 11/25/22 @ 08:36 by Aydin Mauricio MD) Closed fracture of right clavicle (Acute) Frequent falls (Acute) Closed right humeral fracture (Acute) Alcohol intoxication (Acute) Multiple rib fractures (Acute) Closed right clavicular fracture (Acute) Cervical spondylosis (Acute) Fracture of humeral head, right, closed (Acute) Opacity of lung on imaging study (Acute) Abdominal ascites (Acute) Cirrhosis of liver (Acute) Pelvic mass (Acute) Alcohol intoxication (Acute) Fall (Acute) Fatigue (Acute) Sleep disturbance (Acute) Sinus tachycardia (Acute) High anion gap metabolic acidosis (Acute) Elevated blood pressure reading with diagnosis of hypertension (Acute) Pincer nail deformity (Acute) Insomnia (Acute) Thrombocytopenia (Chronic) Elevated bilirubin (Acute) Mixed stress and urge urinary incontinence (Acute) Thyroid nodule (Acute) Anxiety (Chronic) Adverse effect of metronidazole (Acute) Medication monitoring encounter (Acute) Advance care planning (Acute) Cirrhosis of liver with ascites (Acute) Animal bite of right hand with infection (Acute) Umbilical hernia (Acute) Hyperbilirubinemia (Acute) Shortness of breath (Acute) Elevated blood pressure reading without diagnosis of hypertension (Acute) Left arm pain (Acute) Ambulatory dysfunction (Acute) Incontinence (Acute) Anorexia (Acute) Headache (Acute) Depression (Chronic) Chest pain (Acute) Foot pain, right (Acute) Tendinitis of left rotator cuff (Acute) Macrocytosis (Acute 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 Leukopenia (Acute) Headache (Acute) Epigastric abdominal pain (Acute) Calcific tendinitis of left shoulder (Acute) Pulmonary mass (Acute) spiculated mass Pneumonia (Acute) Depression with suicidal ideation (Acute) Alcohol abuse (Chronic) Diarrhea (Acute) Epigastric pain (Acute) Dehydration (Acute) Discharge planning issues (Acute) Difficult intravenous access (Acute) Multiple IV attempts, usually requires ultrasound placement. PTSD (post-traumatic stress disorder) (Acute) Anemia (Chronic) Depression (Chronic) Foot pain, right (Acute) T12 compression fracture (Acute) Presacral mass (Chronic) Deviated nasal septum (Acute) Frequent falls (Chronic) Head injury (Acute) Ambulatory dysfunction (Chronic) Shoulder pain, right (Chronic) Suicidal ideation (Acute) Dry eye (Acute) Pruritus (Acute) Dystrophic nail (Acute) AMBER (acute kidney injury) (Acute) Iron deficiency anemia (Chronic) Fall (Acute) Atelectasis of left lung (Chronic) Advance directive on file (Acute) Nodule of upper lobe of right lung (Acute ~09/13/18) 09/13/18 [facility]; 12mm SPICULATED -kb Cataract (Chronic 11/07/15) Hypertension (Chronic) high today; she will check readings at home Hyperlipidemia (Chronic) Back pain, chronic (Chronic) Depression (Chronic) Osteopenia (Chronic) Medical History Adjustment disorder with depressed mood Alcoholic ketosis Anemia Cervical radicular pain neck pain and [facility] 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) pls refrain from alcohol Chronic alcoholism she will not stop drinking unless she checks with me, so that we can help her avert withdrawal I do not think she is capable on her own--she would need placement to achieve required goal of 3 months of sobriety Chronic diarrhea Closed right humeral fracture Corneal ulcer, right (~08/23/18) 08/23/18; UV-kb Fracture of humerus, left, closed Genital herpes simplex recurrent gential; suppressive Valtrex GERD (gastroesophageal reflux disease) GI bleed (12/20/16) Hypertension Hypokalemia Hypokalemia Hypomagnesemia Incidental lung nodule, greater than or equal to 8mm 1cm, spiculated, stable for many years, recommend f/u in 6 mo Multiple rib fractures 03/11/19 [facility] Non-cardiac chest pain (09/21/16) [facility] [place] 09/21/16 NEGATIVE MP Osteoarthritis Palliative care patient (03/21/17) Pancreatitis, alcoholic, acute Peripheral edema Photophobia of right eye Pleural effusion on left 03/11/19 [facility] Presacral mass (~09/15/18) 09/15/18 [facility] Sciatica right, epidural injuections [facility] Tubular adenoma of colon (01/28/17) Urinary incontinence 01/24/13 urethral suspension and sling at [facility] [place] (bladder suspension 1991) 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 Bladder repair. Repair bladder injury, simple S/P laparoscopic cholecystectomy (~05/19/22) Family History Mother No problems noted. Father , DROWNED at age 50. No problems noted. Sister Personal history of malignant neoplasm MELANOMA Sister No problems noted. Grandfather Personal history of malignant neoplasm STOMACH Grandfather Personal history of malignant neoplasm PROSTATE Grandmother Heart disease [place] Acute ill-defined cerebrovascular disease Grandmother Personal history of malignant neoplasm UTERINE Aunt , [place] Heart disease [place] Aunt , [place] Heart disease Brother No problems noted. Social History Smoking/Tobacco Use Status: Former Tobacco Use Quit Date: 08/29/80 Smoking risk assessment performed?: Yes Alcohol Intake: current Alcohol Intake frequency: 3 or more drinks per day Alcohol type: hard liquor Drug use: Never Substance use type: does not use Details: Last alcoholic drink Mike zhong, 2 days ago Current gender identity: female Do you feel safe at home: Yes Do you feel safe in your relationship?: No Additional Social history: Has 1 dog, 4 cats. Exam Narrative Exam Narrative: Physical Examination General: alert, awake, cooperative, resting comfortably, no acute distress HEENT: normocephalic, atraumatic; PERRL, EOM intact, conjunctiva normal; no nasal discharge; moist mucous membranes, oral and pharyngeal mucosa normal, tolerating secretions Neck: supple, trachea midline; full ROM Chest: normal to inspection Respiratory: normal respiratory effort, speaking in full sentences, clear to auscultation, no wheezing, rales or rhonchi Cardiac: regular rate, regular rhythm, S1S2 intact, no murmurs rubs or gallops GI: abdomen soft, non-tender, non-distended; no palpable mass or hepatosplenomegaly Skin: no lesions, rashes or trauma appreciated Neuro: AAOx3, normal speech, moving all extremities Extremities: In right upper extremity sling Psych: Appropriate mood and affect Course Vital Signs Vital signs: Vital Signs Temperature 36.6 C 11/25/22 08:26 Pulse 106 H 11/25/22 08:26 Respiratory Rate 18 11/25/22 08:26 Blood Pressure 178/97 H 11/25/22 08:26 Pulse Oximetry 97 11/25/22 08:26 Temperature 36.6 C 11/25/22 08:26 Temperature Source Oral 11/25/22 08:26 Pulse 106 H 11/25/22 08:26 Respiratory Rate 18 11/25/22 08:26 Blood Pressure 178/97 H 11/25/22 08:26 Pulse Oximetry 97 11/25/22 08:26 Oxygen Delivery Method Room Air 11/25/22 08:26 Oxygen Flow Rate 0 11/25/22 08:26 Pain Level 10 11/25/22 08:26 Comment shoulder and ribs from prior fall 11/25/22 08:26
== END 2022-11-25 08:58 | disposition home or self-care (01) ==
PROVIDERS: Emergency Provider Emergency Medicine; PCP Family Medicine
DX: R53.83 Other fatigue (principal); R55 Syncope and collapse
CPT/HCPCS: 99281; 99282

== ENCOUNTER 2022-12-07 13:49 | Outpatient (CLI) | payer MEDICARE, SELFPAY ==
--- NOTE | 2022-12-07 13:53 | DI.RAD_ITS ---
Exam(s) XR CLAVICLE RT EXAM: XR CLAVICLE RT CLINICAL HISTORY: f/u fx. TECHNIQUE: 2D digital imaging was performed. COMPARISON: CR XR CLAVICLE RT LIMITED 1V from 07/25/2019 CR,XR XR PORTABLE CHEST AP from 09/11/2022 CR,XR XR SHOULDER RT COMPLETE 2+V from 11/15/2022 FINDINGS: Two views: Angulated fracture of the lateral 3rd right clavicle noted. Prominent than on the June 2019 imag es. However, unchanged from images of 11/15/2022 More lateral fragment is still in continuity with the AC joint Deformity of the greater tuberosity on the lateral aspect of the right humeral head is again noted. Subchondral fracture in the top of the humeral head is difficult to visualize on these dedicated clav icle views. Multiple right-sided rib fractures are noted in various stages of healing. IMPRESSION: As above. DATA REPOSITORY: RADIATION DOSE DELIVERED:
--- NOTE | 2022-12-07 13:53 | DI.RAD_ITS ---
Exam(s) XR SHOULDER RT COMPLETE 2+V EXAM: XR SHOULDER RT COMPLETE 2+V CLINICAL HISTORY: f/u fx. TECHNIQUE: 2D digital imaging was performed. COMPARISON: CR,XR XR SHOULDER RT COMPLETE 2+V from 11/15/2022 FINDINGS: 3 views Deformity of the greater tuberosity is unchanged. The sub chondral fracture line in the superior asp ect of the humeral head is still evident, without displacement of this fragment. There is no disloca tion of glenohumeral joint. Angulated fracture deformity of the lateral 3rd of the ipsilateral clavi pio is unchanged. Acromion is unchanged. Coracoid process remains intact. Multiple right-sided rib fractures again noted. IMPRESSION: Minimal if any significant radiographic change when compared to 11/15/2022. Most acute appearing fin ding which is the subchondral fracture line in the superior aspect of the head of the humerus is stil l quite visible but without further displacement. DATA REPOSITORY: RADIATION DOSE DELIVERED:
== END 2022-12-07 13:50 | disposition home or self-care (01) ==
LOC: DIORS 13:49
PROVIDERS: PCP Family Medicine; Referring Provider Family Medicine; Visit Provider Student in an Organized Health Care Education/Training Program
DX: S42.291D Other displaced fracture of upper end of right humerus, subsequent encounter for fracture with routine healing; S42.031D Displaced fracture of lateral end of right clavicle, subsequent encounter for fracture with routine healing; X58.XXXD Exposure to other specified factors, subsequent encounter; R29.6 Repeated falls
CPT/HCPCS: 99214; 73000; 73030

== ENCOUNTER 2022-12-15 23:59 | Emergency (ER) | payer MEDICARE, SELFPAY ==
--- NOTE | 2022-12-15 23:45 | RT.EKG_ITS ---
APPROVED REPORT Exam: Resting ECG Reason for Exam: n/v Patient Location: E HR:119 bpm ECG Measurements Heart Rate 119 AXIS MS [id number] P [id number] QRSd 90 QRS -28 QT 354 T -21 QTc 499 Conclusion Atrial fibrillation...V-rate 118-120, irreg A-activity Inferior infarct, old...Q >35mS, II III aVF Physician: no stemi
[2022-12-16] VITALS (64 sets, daily range): BP systolic 159–222; BP diastolic 80–153; PULSE 88–136; RESP 7–31; TEMP 36.3; O2SAT 82–100
--- NOTE | 2022-12-16 | DI.CT_ITS ---
Exam(s) CT CHEST/ABD/PEL W EXAM: CT CHEST/ABD/PEL W CLINICAL HISTORY: vomiting, chest pain, diarrhea. TECHNIQUE: Imaging Protocol: Axial computed tomography images with coronal and sagittal reformatted images were created and reviewed CONTRAST MATERIAL: Intravenous: Omnipaque 350 Contrast volume:100 ml Oral: no COMPARISON: CT CT CHEST/ABD/PEL W from 04/19/[address] CHEST/ABD/PEL W from 11/15/[address] CHEST/ABD/PEL W from 11/25/2022 FINDINGS: CHEST: Tracheobronchial tree: Patent where visualized. Pulmonary parenchyma: No consolidation or dominant measurable mass. Focal area of scarring posterior right upper lobe. Pleura: No effusion or pneumothorax. Lymph nodes: Within normal limits. Aorta: Ascending 3.9cm. Heart: Mildly enlarged. Bones: Mild scoliosis.. No lytic or blastic lesions.No compression fractures. Multiple old bilatera l rib fractures. ABDOMEN: Liver: Enlarged. Nodular contour. No measurable mass. Gallbladder and biliary tract: Status post cholecystectomy. No radiodense calculus or dilation. Pancreas: Normal density, no abnormal calcifications or inflammatory process. Spleen: Normal. Kidneys: Normal size, contour and axis. No radiodense stones or obstructive uropathy. Bilateral renal cysts. No further workup necessary. No suspicious masses seen. Adrenal glands: No masses seen. Aorta: Abdominal portion non-dilated. Lymph nodes: Within normal limits. Soft tissues: Unremarkable. PELVIS: Bladder: Symmetric distention, no gross wall thickening. Bowel: No obstruction or bowel wall thickening. : Nearly free of stool. Peritoneal cavity: Mild ascites, decreased from prior.. No focal collection or mesenteric inflammator y response. Lobulated masses again noted within the presacral fat adjacent to the rectosigmoid. Bones: Degenerative changes. Reproductive organs: Within normal limits. IMPRESSION: No acute abnormality in the chest, abdomen or pelvis.. Cirrhotic appearing liver. Small amount of as cites. Stable appearance of soft tissue masses in the pelvis. RADIATION DOSE DELIVERED: 876.51mGy.cm Total DLP DATA REPOSITORY: All CT scans at this facility are submitted to the National Radiology Data Registry (NRDR) Dose Index Registry (DIR) with the [employer] ([employer]). RADIATION OPTIMIZATION: All CT scans at this facility use at least one of these dose optimization te chniques: automated exposure control; mA and/or kV adjustment per patient size (includes targeted exa ms where dose is matched to clinical indication); or iterative reconstruction.
[2022-12-16] MEDS: Normal Saline 1,000 ML 1000 ML IV (00:10)
[2022-12-16] MEDS: Ondansetron 4 MG/2 ML VIAL IVP (00:10)
[2022-12-16 00:18] LABS: Lactate 8.7 mmol/L (0.6-1.4)
[2022-12-16 00:22] LABS: Abs Immature Grans 0.04 10^3/uL (0.0-0.06); Absolute Basophil Count 0.03 10^3/uL (0.0-0.2); Absolute Lymphocyte Count 0.39 10^3/uL (1.2-3.4); Absolute Monocyte Count 0.25 10^3/uL (0.1-0.8); Basophils % 0.4; HCT 37.1 % (36.0-46.0); HGB 12.3 g/dL (11.2-15.7); Immature Grans % 0.5; Lymphocytes % 4.6; MCH 33.3 pg (27.0-33.0); MCHC 33.2 % (32.0-36.0); MCV 101 fL (80-95); MPV 9.2 fL (8.0-11.0); Neutrophils % 91.5; Platelet Count 193 10^3/uL (130-400); RBC 3.69 10^6/uL (3.93-5.22); RDW 14.6 % (11.7-14.6); RDW-SD 53.8 fL; WBC 8.41 10^3/uL (4.4-10.8)
[2022-12-16] MEDS: MORPHine 4 MG/ML SYR IVP (00:28)
[2022-12-16 00:34] LABS: Bilirubin Negative (Negative); Blood Small (Negative); Clarity Sl Cloudy (Clear); Glucose 250 mg/dL (Negative); Ketones Trace mg/dL (Negative); Leukocyte Esterase Negative (Negative); Nitrite Positive (Negative); Specific Gravity >= 1.030 (1.005-1.025); Urobilinogen 0.2 mg/dL (Up to 0.2); pH 6.5 (5-8)
[2022-12-16 00:37] LABS: ALT 24 U/L (14-59); AST 36 U/L (15-37); Albumin 4.4 g/dL (3.4-5.0); Alkaline Phosphatase 298 U/L (46-116); Anion Gap 20.5 mmol/L (3-11); BUN 13 mg/dL (7-18); Bilirubin, Total 3.7 mg/dL (0.2-1.0); CO2 20.5 mmol/L (21.0-32.0); CREATININE 1.2 mg/dL (0.55-1.02); Calcium 10.6 mg/dL (8.5-10.1); Chloride 98 mmol/L (98-107); Estimated GFR 46.91 (mL/min/1.73m2); Glucose 259 mg/dL (74-106); Lipase 14 U/L (16-77); Potassium 3.4 mmol/L (3.5-5.1); Sodium 139 mmol/L (136-145); Total Protein 8.5 g/dL (6.4-8.2); Troponin I < 50 ng/L (<or=60)
[2022-12-16 00:38] LABS: INR 1.1 (0.9-1.1); Prothrombin Time 11.5 sec (9.3-11.0)
[2022-12-16 00:40] LABS: ETHANOL BLOOD < 3.0 mg/dL (<10)
[2022-12-16 00:43] LABS: Bacteria Many HPF (Negative); C & S Indicated? Yes; Crystals Negative HPF (Negative); Epithelial Cells Negative HPF (Negative); Mucus Negative (Negative); Other Cells Few Transitional (Negative)
[2022-12-16] MEDS: Omnipaque 350 MG/ML 100 ML BTL IJ (00:44)
[2022-12-16] MEDS: Normal Saline - Diluent 50 ML VIAL IJ (00:45)
[2022-12-16 01:03] LABS: COVID-19 PCR Negative (Negative); Influenza A PCR Negative (Negative); Influenza B PCR Negative (Negative); RSV PCR Negative (Negative)
[2022-12-16 01:08] LABS: Source Nasopharynx
--- NOTE | 2022-12-16 01:30 | W.ED.GENAD ---
Discharge Plan Disposition Patient Disposition: Home Discharge Details Chief Complaint: Nausea/Vomit/Diar Clinical Impression: Dehydration, Nausea and vomiting Primary Care Provider: Lavelle Galindo ED Provider: Paul Chavira Home Meds and New Rx's Prescriptions: No Action Xiidra 5 % dropperette 1 drp ophthalmic (eye) BID Rx Instructions: administer approximately 12 hours apart budesonide [Pulmicort] 0.5 mg/2 mL suspension for nebulization 0.5 mg inhalation DAILY Qty: 60 5RF Patient Comments: pt states meds come in blister pack labeled daily by [employer] [facility] and she takes them but doesn't know the names furosemide 20 mg tablet See Rx Instructions PO BID Qty: 180 3RF Patient Comments: pt states meds come in blister pack labeled daily by [employer] [facility] and she takes them but doesn't know the names Rx Instructions: orally twice a day; 3 tabs (60mg) in AM and 2 tabs(40mg in afternoon; ipratropium-albuterol 0.5 mg-3 mg(2.5 mg base)/3 mL solution for nebulization 3 ml inhalation Q6H PRN Patient Comments: pt states meds come in blister pack labeled daily by [employer] [facility] and she takes them but doesn't know the names Myrbetriq 50 mg tablet extended release 24 hr 50 mg PO DAILY Qty: 30 12RF albuterol sulfate [Ventolin HFA] 90 mcg/actuation HFA aerosol inhaler 2 puff inhalation QID PRN (Reason: shortness of breath or wheezing) Qty: 8.5 1RF amlodipine 10 mg tablet 10 mg PO DAILY Qty: 90 3RF Patient Comments: pt states meds come in blister pack labeled daily by [employer] [facility] [employer] and she takes them but doesn't know the names buspirone 5 mg tablet 5 mg PO BID Qty: 60 5RF Patient Comments: pt states meds come in blister pack labeled daily by [employer] [facility] [employer] and she takes them but doesn't know the names folic acid 1 mg tablet 1 mg PO DAILY Qty: 90 3RF Patient Comments: pt states meds come in blister pack labeled daily by [employer] [facility] [employer] and she takes them but doesn't know the names melatonin 3 mg capsule 6 mg PO HS Qty: 180 3RF Patient Comments: pt states meds come in blister pack labeled daily by [employer] [facility] and she takes them but doesn't know the names metoprolol tartrate 50 mg tablet 50 mg PO DAILY Qty: 90 3RF Patient Comments: pt states meds come in blister pack labeled daily by [employer] [facility] [employer] and she takes them but doesn't know the names mirtazapine 7.5 mg tablet 7.5 mg PO QHS Qty: 90 4RF Patient Comments: pt states meds come in blister pack labeled daily by [employer] [facility] [employer] and she takes them but doesn't know the names sucralfate 1 gram tablet 1 g PO BID Qty: 60 11RF Patient Comments: pt states meds come in blister pack labeled daily by [employer] [facility] [employer] and she takes them but doesn't know the names thiamine HCl (vitamin B1) 100 mg tablet 100 mg PO DAILY Qty: 90 3RF Patient Comments: pt states meds come in blister pack labeled daily by [employer] [facility] [employer] and she takes them but doesn't know the names valacyclovir [Valtrex] 500 mg tablet 500 mg PO DAILY Qty: 90 3RF Patient Comments: pt states meds come in blister pack labeled daily by [employer] [facility] [employer] and she takes them but doesn't know the names Rx Instructions: Take 500 mg BID for 3 days, then take daily fluticasone propionate 50 mcg/actuation spray,suspension 2 spray NS daily prn Qty: 16 5RF Patient Comments: pt states meds come in blister pack labeled daily by [employer] [facility] and she takes them but doesn't know the names cyanocobalamin (vitamin B-12) [Vitamin B-12] 500 mcg tablet 1,000 mcg PO DAILY Qty: 180 3RF Patient Comments: pt states meds come in blister pack labeled daily by [employer] [facility] and she takes them but doesn't know the names ferrous sulfate 325 mg (65 mg iron) tablet 325 mg PO BID Qty: 180 3RF Patient Comments: pt states meds come in blister pack labeled daily by [employer] [facility] [employer] and she takes them but doesn't know the names Rx Instructions: do not take within 2 hours of antibiotics multivitamin [Multiple Vitamins] Tablet 1 tab PO DAILY Qty: 90 3RF Patient Comments: pt states meds come in blister pack labeled daily by [employer] [facility] and she takes them but doesn't know the names quetiapine 25 mg tablet See Rx Instructions PO BID Qty: 60 5RF Patient Comments: pt states meds come in blister pack labeled daily by [employer] [facility] [employer] and she takes them but doesn't know the names Rx Instructions: 0.5 tab PO twice a day; spironolactone [Aldactone] 50 mg tablet 50 mg PO BID Qty: 180 3RF Patient Comments: pt states meds come in blister pack labeled daily by [employer] [facility] and she takes them but doesn't know the names venlafaxine 75 mg capsule,extended release 24hr 75 mg PO DAILY Qty: 90 3RF Hold Instructions: Home Medication placed on hold at Doctor's office Patient Comments: pt states meds come in blister pack labeled daily by [employer] [facility] [employer] and she takes them but doesn't know the names. aspirin 81 mg tablet,delayed release (DR/EC) 81 mg PO DAILY Qty: 90 3RF Patient Comments: pt states meds come in blister pack labeled daily by [employer] [facility] and she takes them but doesn't know the names lorazepam 0.5 mg tablet 0.5 mg PO QHS PRN (Reason: anxiety) Qty: 20 0RF ondansetron HCl 4 mg tablet 4 mg PO Q6H PRN (Reason: nausea and vomiting) Qty: 20 1RF carboxymethylcellulose sodium [Refresh Plus] 0.5 % Dropperette 1 drp OU Q4H WHILE AWAKE Qty: 30 0RF Patient Comments: pt states meds come in blister pack labeled daily by [employer] [facility] [employer] and she takes them but doesn't know the names pantoprazole 40 mg Tablet,Delayed Release (Dr/Ec) 40 mg PO BID@ Qty: 60 0RF Patient Comments: pt states meds come in blister pack labeled daily by [employer] [facility] [employer] and she takes them but doesn't know the names Discharge Instructions Instructions: Dehydration (ED), Acute Nausea and Vomiting (ED) Additional Instructions: Please drink plenty of fluids and stay well-hydrated. Take the Zofran as needed for nausea. Take 1-2 Tums regularly with every meal. If you notice any worsening of your symptoms, or any new symptoms such as vomiting, diarrhea, fever, chills, shortness of breath, chest pain, numbness, weakness, or fainting , please return immediately to the emergency department for reevaluation. Please follow up with your primary care provider as soon as possible for reassessment and reevaluation. As always, it was a pleasure participating in your medical care today. Referrals: Lavelle Galindo MD [Primary Care Provider] - Medical Decision Making 77-year-old female with a past medical history of chronic cirrhosis of the liver, asthma/reactive airway disease, alcoholic cirrhosis, GERD, previous GI bleeds, palliative care patient in the past,?with a history of a more recently diagnosed pelvic mass, recent clavicle fracture, who presents today for vomiting and diarrhea for the past few days. Patient states that she has had a few intermittent episodes of diarrhea. She denies any recent antibiotic use. She has been nauseous and vomiting vomiting multiple times throughout the day. She denies any blood in her vomitus or stool. She has not been able to drink or take her medications because of this. She admits to generalized abdominal pain and discomfort, primarily on the right upper and right lower abdominal area. No other complaints at this time. No other modifying factors. Exam demonstrates mild right-sided abdominal tenderness in the right upper mid and lower abdominal quadrants. No left-sided abdominal pain. Mucous membranes are slightly dry. Differential includes appendicitis, pancreatitis, or gastroenteritis versus SBO. Past surgical history includes tubal ligation, cholecystectomy. We will get a CT scan, rehydrate, give antiemetics, monitor closely and reassess. Of note the patient states that she has been sober for the last 2 weeks. Because of the vomiting she has not been taking her medications though. Symptoms do not appear consistent with spontaneous bacterial peritonitis clinically. 40 2 AM Laboratory work-up has returned, no significant white count, lactate elevated at 8.7 but this is likely high secondary to her chronic liver disease. Electrolytes stable, creatinine 1.2, anion gap is present. Troponin normal, EKG stable. Lipase normal. Urinalysis does show evidence of mild UTI. We will treat with fosfomycin. Patient has remained notably hypertensive, 5 mg of metoprolol IV have been given. She is normally on metoprolol 50. We can add amlodipine if her blood pressure continues to stay high. CT scan shows evidence of fatty mass in the pelvis, but no other acute process. Upon review of the patient's last clinic note it does appear that they decided to not pursue aggressive surgical management for this mass. I am uncertain if this is what is causing her pain. We will continue to gently hydrate and treat her nausea. 5:01 AM On reassessment the patient is feeling much better. She has tolerated p.o. trial. She feels well and feels comfortable going home. I do feel that at this time there is no clinical evidence of an acute surgical pathology. Vital signs have normalized. She is sleeping and resting comfortably. Blood pressure has normalized. She tolerated p.o. trial without any complication. We will send home with some antiemetics. Suspect potential viral component causing her nausea and vomiting versus chronic irritation and gastric irritation from chronic alcoholism. Repeat lactate has returned notably normalized, transitioning from 8.7 down to 1.7. Patient feels well, feels comfortable going home. Discussed red flags for which to return. I have extensively reviewed the treatment plan and discharge instructions with the patient. I have addressed all patient concerns at this time. The patient was made aware of what symptoms to monitor for that would warrant a return to the emergency department. Discussed the plan with the patient, they demonstrate verbal understanding and agreement with our assessment and plan at this time. The documentation in this chart was dictated using [employer] dictation software. Please excuse any dictation errors. FINDINGS: Thyroid: 8 mm hypodense right thyroid lobe nodule, unchanged. Lungs: 12 mm irregular nodular focus within the right upper lobe, with minimal adjacent architectural distortion (series 4, image 10), not significantly changed from comparison study. Mild bibasilar atelectasis. Pleural spaces: Unremarkable. No pneumothorax. No pleural effusion. Heart: Normal. Coronary arteries: Mild atherosclerotic disease of the visualized right coronary artery. Lymph nodes: No pathologically-enlarged lymph nodes. Vasculature: Minimal atherosclerotic disease of the thoracic aorta, without aneurysm or dissection. Diaphragm: Small-sized hiatal hernia. Bones/joints: Multiple old bilateral lateral and posterior rib fractures. Multilevel thoracic spine degenerative changes. Soft tissues: Normal. IMPRESSION: 1. No acute thoracic abnormality. 2. 12 mm irregular nodular focus within the right upper lobe, with minimal adjacent architectural distortion (series 4, image 10), not significantly changed from comparison study. FINDINGS: Diaphragm: Small-sized hiatal hernia. Liver: Nodular hepatic peripheral contour, compatible cirrhosis. Small volume ascites, secondary to cirrhosis. Gallbladder and bile ducts: Gallbladder surgically absent. Pancreas: Normal. Spleen: Normal. Adrenal glands: Mild left adrenal hyperplasia. Kidneys and ureters: Multiple bilateral simple renal cysts, for which no further evaluation necessary. Stomach and bowel: Normal. Appendix: No evidence of appendicitis. Intraperitoneal space: 7.6 x 5.4 cm heterogeneous fat and soft tissue attenuation mass within the right lower pelvis (series 5, image 932), unchanged. Vasculature: Atherosclerotic disease of the abdominal aorta. Lymph nodes: Unremarkable. No enlarged lymph nodes. Urinary bladder: Unremarkable as visualized. Reproductive: Unremarkable as visualized. Bones/joints: Multilevel lumbar spine degenerative disc space narrowing and osteophyte formation. Grade 1 degenerative anterolisthesis of L4 on L5. Soft tissues: Normal. IMPRESSION: 1. No acute abdominal or pelvic abnormality. 2. 7.6 x 5.4 cm heterogeneous fat and soft tissue attenuation mass within the right lower pelvis (series 5, image 932), unchanged. 3. Cirrhosis, with associated small volume ascites. Thank you for allowing us to participate in the care of your patient. Dictated and Authenticated by: Franki Doll MD 12/16/2022 3:21 AM Eastern Time ([place] & [place]) HPI General Date/Time Provider Initiated Documentation: 12/16/22 00:07. HPI Narrative: 77-year-old female with a past medical history of chronic cirrhosis of the liver, asthma/reactive airway disease, alcoholic cirrhosis, GERD, previous GI bleeds, palliative care patient in the past,?with a history of a more recently diagnosed pelvic mass, recent clavicle fracture, who presents today for vomiting and diarrhea for the past few days. Patient states that she has had a few intermittent episodes of diarrhea. She denies any recent antibiotic use. She has been nauseous and vomiting vomiting multiple times throughout the day. She denies any blood in her vomitus or stool. She has not been able to drink or take her medications because of this. She admits to generalized abdominal pain and discomfort, primarily on the right upper and right lower abdominal area. No other complaints at this time. No other modifying factors. Related Data Home Medications Medication Instructions Recorded Confirmed carboxymethylcellulose sodium 0.5 1 drp OU Q4H WHILE AWAKE #30 ea 06/20/19 12/16/22 % eye drops in a dropperette (Refresh Plus) lifitegrast 5 % eye drops in a 1 drp ophthalmic (eye) BID 08/05/20 12/16/22 dropperette (Xiidra) ipratropium 0.5 mg-albuterol 3 mg 3 ml inhalation Q6H PRN 12/25/21 12/16/22 (2.5 mg base)/3 mL nebulization soln albuterol sulfate 90 mcg/actuation 2 puff inhalation QID PRN 02/08/22 12/16/22 aerosol inhaler (Ventolin HFA) shortness of breath or wheezing #8.5 grams amlodipine 10 mg tablet 10 mg PO DAILY #90 tabs 02/08/22 12/16/22 buspirone 5 mg tablet 5 mg PO BID #60 tabs 02/08/22 12/16/22 folic acid 1 mg tablet 1 mg PO DAILY #90 tabs 02/08/22 12/16/22 melatonin 3 mg capsule 6 mg PO HS #180 caps 02/08/22 12/16/22 metoprolol tartrate 50 mg tablet 50 mg PO DAILY #90 tabs 02/08/22 12/16/22 mirtazapine 7.5 mg tablet 7.5 mg PO QHS #90 tabs 02/08/22 12/16/22 sucralfate 1 gram tablet 1 g PO BID #60 tabs 02/08/22 12/16/22 thiamine HCl (vitamin B1) 100 mg 100 mg PO DAILY #90 tabs 02/08/22 12/16/22 tablet valacyclovir 500 mg tablet 500 mg PO DAILY #90 tabs 02/08/22 12/16/22 (Valtrex) fluticasone propionate 50 2 spray NS daily prn #16 grams 03/06/22 12/16/22 mcg/actuation nasal spray,suspension budesonide 0.5 mg/2 mL suspension 0.5 mg (2 mL) inhalation DAILY #60 05/06/22 12/16/22 for nebulization (Pulmicort) mL pantoprazole 40 mg tablet,delayed 40 mg PO BID@0730,1999 #60 tabs 05/21/22 12/16/22 release cyanocobalamin (vitamin B-12) 500 1,000 mcg PO DAILY #180 tabs 07/10/22 12/16/22 mcg tablet (Vitamin B-12) ferrous sulfate 325 mg (65 mg 325 mg PO BID #180 tabs 07/10/22 12/16/22 iron) tablet multivitamin (Multiple Vitamins 1 tab PO DAILY #90 tabs 07/10/22 12/16/22 tablet) quetiapine 25 mg tablet See Rx Instructions PO BID #60 tabs 07/10/22 12/16/22 spironolactone 50 mg tablet 50 mg PO BID #180 tabs 07/10/22 12/16/22 (Aldactone) venlafaxine 75 mg capsule,extended 75 mg PO DAILY #90 caps 07/10/22 12/16/22 release 24 hr mirabegron 50 mg tablet,extended 50 mg PO DAILY #30 tabs 07/20/22 12/16/22 release 24 hr (Myrbetriq) aspirin 81 mg tablet,delayed 81 mg PO DAILY #90 tabs 08/05/22 12/16/22 release furosemide 20 mg tablet See Rx Instructions PO BID #180 08/11/22 12/16/22 tabs lorazepam 0.5 mg tablet 0.5 mg PO QHS PRN anxiety #20 tabs 12/01/22 12/16/22 ondansetron HCl 4 mg tablet 4 mg PO Q6H PRN nausea and 12/11/22 12/16/22 vomiting #20 tabs Previous Rx's Medication Instructions Recorded carboxymethylcellulose sodium 0.5 1 drp OU Q4H WHILE AWAKE #30 ea 06/20/ % eye drops in a dropperette (Refresh Plus) albuterol sulfate 90 mcg/actuation 2 puff inhalation QID PRN 02/08/22 aerosol inhaler (Ventolin HFA) shortness of breath or wheezing #8.5 grams amlodipine 10 mg tablet 10 mg PO DAILY #90 tabs 02/08/22 buspirone 5 mg tablet 5 mg PO BID #60 tabs 02/08/22 folic acid 1 mg tablet 1 mg PO DAILY #90 tabs 02/08/22 melatonin 3 mg capsule 6 mg PO HS #180 caps 02/08/22 metoprolol tartrate 50 mg tablet 50 mg PO DAILY #90 tabs 02/08/22 mirtazapine 7.5 mg tablet 7.5 mg PO QHS #90 tabs 02/08/22 sucralfate 1 gram tablet 1 g PO BID #60 tabs 02/08/22 thiamine HCl (vitamin B1) 100 mg 100 mg PO DAILY #90 tabs 02/08/22 tablet valacyclovir 500 mg tablet 500 mg PO DAILY #90 tabs 02/08/22 (Valtrex) fluticasone propionate 50 2 spray NS daily prn #16 grams 03/06/22 mcg/actuation nasal spray,suspension budesonide 0.5 mg/2 mL suspension 0.5 mg (2 mL) inhalation DAILY #60 05/06/22 for nebulization (Pulmicort) mL pantoprazole 40 mg tablet,delayed 40 mg PO BID@07,1999 #60 tabs 05/21/22 release cyanocobalamin (vitamin B-12) 500 1,000 mcg PO DAILY #180 tabs 07/10/22 mcg tablet (Vitamin B-12) ferrous sulfate 325 mg (65 mg 325 mg PO BID #180 tabs 07/10/22 iron) tablet multivitamin (Multiple Vitamins 1 tab PO DAILY #90 tabs 07/10/22 tablet) quetiapine 25 mg tablet See Rx Instructions PO BID #60 tabs 07/10/22 spironolactone 50 mg tablet 50 mg PO BID #180 tabs 07/10/22 (Aldactone) venlafaxine 75 mg capsule,extended 75 mg PO DAILY #90 caps 07/10/22 release 24 hr mirabegron 50 mg tablet,extended 50 mg PO DAILY #30 tabs 07/20/22 release 24 hr (Myrbetriq) aspirin 81 mg tablet,delayed 81 mg PO DAILY #90 tabs 08/05/22 release furosemide 20 mg tablet See Rx Instructions PO BID #180 08/11/22 tabs lorazepam 0.5 mg tablet 0.5 mg PO QHS PRN anxiety #20 tabs 12/01/22 ondansetron HCl 4 mg tablet 4 mg PO Q6H PRN nausea and 12/11/22 vomiting #20 tabs Allergies Allergy/AdvReac Type Severity Reaction Status Date / Time Penicillins Allergy Mild Rash Verified 12/16/22 00:06 ramipril Allergy Unknown ITCHING Verified 12/16/22 00:06 meperidine [From Demerol] AdvReac Severe Nausea Verified 12/16/22 00:06 bupropion AdvReac Mild GI upset Verified 12/16/22 00:06 AMBER Inhibitors AdvReac Unknown COUGH Verified 12/16/22 00:06 alendronate sodium AdvReac Unknown GI Distress Verified 12/16/22 00:06 clarithromycin AdvReac Unknown intolerant Verified 12/16/22 00:06 paroxetine AdvReac Unknown Diarrhea Verified 12/16/22 00:06 General Stated Complaint: Nausea/Vomit/Diar JORDAN: 3 Review of Systems All systems reviewed & are unremarkable except as noted in HPI and below PFSH All Active Problems (Updated 12/16/22 @ 06:19 by Paul Chavira, DO) Dehydration (Acute) Nausea and vomiting (Acute) Multiple rib fractures (Acute) Closed right clavicular fracture (Acute) Cervical spondylosis (Acute) Fracture of humeral head, right, closed (Acute) Opacity of lung on imaging study (Acute) Abdominal ascites (Acute) Cirrhosis of liver (Acute) Pelvic mass (Acute) Alcohol intoxication (Acute) Fall (Acute) Fatigue (Acute) Sleep disturbance (Acute) Sinus tachycardia (Acute) High anion gap metabolic acidosis (Acute) Elevated blood pressure reading with diagnosis of hypertension (Acute) Pincer nail deformity (Acute) Insomnia (Acute) Thrombocytopenia (Chronic) Elevated bilirubin (Acute) Mixed stress and urge urinary incontinence (Acute) Thyroid nodule (Acute) Anxiety (Chronic) Adverse effect of metronidazole (Acute) Medication monitoring encounter (Acute) Advance care planning (Acute) Cirrhosis of liver with ascites (Acute) Animal bite of right hand with infection (Acute) Umbilical hernia (Acute) Hyperbilirubinemia (Acute) Shortness of breath (Acute) Elevated blood pressure reading without diagnosis of hypertension (Acute) Left arm pain (Acute) Ambulatory dysfunction (Acute) Incontinence (Acute) Anorexia (Acute) Headache (Acute) Depression (Chronic) Chest pain (Acute) Foot pain, right (Acute) Tendinitis of left rotator cuff (Acute) Macrocytosis (Acute 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 Leukopenia (Acute) Headache (Acute) Epigastric abdominal pain (Acute) Calcific tendinitis of left shoulder (Acute) Pulmonary mass (Acute) spiculated mass Pneumonia (Acute) Depression with suicidal ideation (Acute) Alcohol abuse (Chronic) Diarrhea (Acute) Epigastric pain (Acute) Dehydration (Acute) Discharge planning issues (Acute) Difficult intravenous access (Acute) Multiple IV attempts, usually requires ultrasound placement. PTSD (post-traumatic stress disorder) (Acute) Anemia (Chronic) Depression (Chronic) Foot pain, right (Acute) T12 compression fracture (Acute) Presacral mass (Chronic) Deviated nasal septum (Acute) Frequent falls (Chronic) Head injury (Acute) Ambulatory dysfunction (Chronic) Shoulder pain, right (Chronic) Suicidal ideation (Acute) Dry eye (Acute) Pruritus (Acute) Dystrophic nail (Acute) AMBER (acute kidney injury) (Acute) Iron deficiency anemia (Chronic) Fall (Acute) Atelectasis of left lung (Chronic) Advance directive on file (Acute) Nodule of upper lobe of right lung (Acute ~09/13/18) 09/13/18 [facility]; 12mm SPICULATED -kb Cataract (Chronic 11/07/15) Hypertension (Chronic) high today; she will check readings at home Hyperlipidemia (Chronic) Back pain, chronic (Chronic) Depression (Chronic) Osteopenia (Chronic) Medical History Adjustment disorder with depressed mood Alcoholic ketosis Anemia Cervical radicular pain neck pain and [facility] 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) pls refrain from alcohol Chronic alcoholism she will not stop drinking unless she checks with me, so that we can help her avert withdrawal I do not think she is capable on her own--she would need placement to achieve required goal of 3 months of sobriety Chronic diarrhea Closed right humeral fracture Corneal ulcer, right (~08/23/18) 08/23/18; [facility] Fracture of humerus, left, closed Genital herpes simplex recurrent gential; suppressive Valtrex GERD (gastroesophageal reflux disease) GI bleed (12/20/16) Hypertension Hypokalemia Hypokalemia Hypomagnesemia Incidental lung nodule, greater than or equal to 8mm 1cm, spiculated, stable for many years, recommend f/u in 6 mo Multiple rib fractures 03/11/19 [facility] Non-cardiac chest pain (09/21/16) [facility] 09/21/16 NEGATIVE MP Osteoarthritis Palliative care patient (03/21/17) Pancreatitis, alcoholic, acute Peripheral edema Photophobia of right eye Pleural effusion on left 03/11/19 [facility] Presacral mass (~09/15/18) 09/15/18 [facility] Sciatica right, epidural injuections [facility] Tubular adenoma of colon (01/28/17) Urinary incontinence 01/24/13 urethral suspension and sling at [facility] (bladder suspension 1991) 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 Bladder repair. Repair bladder injury, simple S/P laparoscopic cholecystectomy (~05/19/22) Family History Mother No problems noted. Father , DROWNED at age 50. No problems noted. Sister Personal history of malignant neoplasm MELANOMA Sister No problems noted. Grandfather Personal history of malignant neoplasm STOMACH Grandfather Personal history of malignant neoplasm PROSTATE Grandmother Heart disease ID Acute ill-defined cerebrovascular disease Grandmother Personal history of malignant neoplasm UTERINE Aunt , ID Heart disease ID Aunt , ID Heart disease Brother No problems noted. Social History Smoking/Tobacco Use Status: Former Tobacco Use Quit Date: 08/29/80 Smoking risk assessment performed?: Yes Alcohol Intake: current Alcohol Intake frequency: 3 or more drinks per day Alcohol type: hard liquor Drug use: Never Substance use type: does not use Details: Last alcoholic drink Mike zhong, 2 days ago Current gender identity: female Do you feel safe at home: Yes Do you feel safe in your relationship?: No Additional Social history: Has 1 dog, 4 cats. Exam Narrative Exam Narrative: 1.Const: Well-nourished, Well-developed, appearing stated age 2.Eyes: PERRL, no conjunctival injection, and symmetrical lids. 3.ENT: Atraumatic external nose and ears. Dry MM. Neck: Symmetric, trachea midline, No thyromegaly. 4.CVS: +S1/S2, No murmurs or gallops. Peripheral pulses 2+ and equal in all extremities. Brisk capillary refill in all extremities. 5.RESP: Unlabored respiratory effort. Clear to auscultation bilaterally. No wheezes rales or rhonchi 6.GI: Soft, nondistended. No large ascites. No left-sided abdominal pain or tenderness. Mild right mid, right upper and right lower abdominal tenderness is present. No guarding or rebound. 7.MSK: Normocephalic/Atraumatic, Extremities w/o deformity or ttp No cyanosis or clubbing, Normal movement of all extremities 8.Skin: Warm, Dry. No rashes or lesions. 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 Sensation grossly intact, no focal neurologic deficits. 10.Psych: (AAO) x3. Appropriate mood and affect Course Vital Signs Vital signs: Vital Signs Temperature 36.3 C L 12/16/22 00:01 Pulse 119 H 12/16/22 00:01 Respiratory Rate 18 12/16/22 00:01 Blood Pressure 222/120 H 12/16/22 00:01 Pulse Oximetry 97 12/16/22 00:01 Temperature 36.3 C L 12/16/22 00:01 Temperature Source Skin 12/16/22 00:01 Pulse 97 H 12/16/22 01:16 Pulse 98 H 12/16/22 01:20 Respiratory Rate 20 12/16/22 01:20 Respiratory Effort Normal 12/16/22 00:05 Blood Pressure 178/80 H 12/16/22 01:16 Blood Pressure Mean 105 12/16/22 01:16 Blood Pressure Position Supine 12/16/22 00:01 Pulse Oximetry 96 12/16/22 01:20 Oxygen Delivery Method Room Air 12/16/22 00:01 Oxygen Flow Rate 0 12/16/22 00:01 Lab/Test Results Lab/Test Results: 12/16/22 00:30 Urine - Reflex from Ua Urine Culture - Pending Laboratory Tests Range/Units 12/16/22 12/16/22 12/16/22 00:10 00:10 00:10 WBC (4.4-10.8) 10^3/uL 8.41 RBC (3.93-5.22) 10^6/uL 3.69 L Hgb (11.2-15.7) g/dL 12.3 Hct (36.0-46.0) % 37.1 MCV (80-95) fL 101 H MCH (27.0-33.0) pg 33.3 H MCHC (32.0-36.0) % 33.2 RDW (11.7-14.6) % 14.6 Plt Count (130-400) 10^3/uL 193 MPV (8.0-11.0) fL 9.2 Immature Gran % 0.5 Neutrophils % 91.5 Lymphocytes % 4.6 Monocytes % 3.0 Eosinophils % 0.0 Basophils % 0.4 Nucleated RBC % (0.0-0.3) % 0.0 Absolute Neutrophils (1.2-6.7) 10^3/uL 7.70 H Absolute Lymphocytes (1.2-3.4) 10^3/uL 0.39 L Absolute Monocytes (0.1-0.8) 10^3/uL 0.25 Absolute Eosinophils (0.0-0.7) 10^3/uL 0.00 Absolute Basophils (0.0-0.2) 10^3/uL 0.03 PT (9.3-11.0) sec INR (0.9-1.1) APTT (21.5-31.9) sec VBG Lactate (0.6-1.4) mmol/L 8.7 H* Sodium (136-145) mmol/L 139 Potassium (3.5-5.1) mmol/L 3.4 L Chloride (98-107) mmol/L 98 Carbon Dioxide (21.0-32.0) mmol/L 20.5 L Anion Gap (3-11) mmol/L 20.5 H BUN (7-18) mg/dL 13 Creatinine (0.55-1.02) mg/dL 1.2 H Est GFR (CKD-EPI 2020) (mL/min/1.73m2) 46.91 Glucose (74-106) mg/dL 259 H Calcium (8.5-10.1) mg/dL 10.6 H Total Bilirubin (0.2-1.0) mg/dL 3.7 H AST (15-37) U/L 36 ALT (14-59) U/L 24 Alkaline Phosphatase (46-116) U/L 298 H Troponin I (<or=60) ng/L < 50 Total Protein (6.4-8.2) g/dL 8.5 H Albumin (3.4-5.0) g/dL 4.4 Lipase (16-77) U/L 14 L Urine Color (Yellow) Urine Clarity (Clear) Urine pH (5-8) Ur Specific Cooks (1.005-1.025) Urine Protein (Negative) mg/dL Urine Ketones (Negative) mg/dL Urine Blood (Negative) Urine Nitrite (Negative) Urine Bilirubin (Negative) Urine Urobilinogen (Up to 0.2) mg/dL Ur Leukocyte Esterase (Negative) Urine RBC (0-2) HPF Urine WBC (0-5) HPF Ur Epithelial Cells (Negative) HPF Urine Crystals (Negative) HPF Urine Bacteria (Negative) HPF Urine Mucus (Negative) Urine Other (Negative) Ur Culture Indicated? Urine Glucose (Negative) mg/dL Ethyl Alcohol (<10) mg/dL < 3.0 COVID-19 Source SARS-CoV-2 (PCR) (Negative) Influenza Type A (PCR) (Negative) Influenza Type B (PCR) (Negative) RSV (PCR) (Negative) Range/Units 12/16/22 12/16/22 12/16/22 00:10 00:15 00:30 WBC (4.4-10.8) 10^3/uL RBC (3.93-5.22) 10^6/uL Hgb (11.2-15.7) g/dL Hct (36.0-46.0) % MCV (80-95) fL MCH (27.0-33.0) pg MCHC (32.0-36.0) % RDW (11.7-14.6) % Plt Count (130-400) 10^3/uL MPV (8.0-11.0) fL Immature Gran % Neutrophils % Lymphocytes % Monocytes % Eosinophils % Basophils % Nucleated RBC % (0.0-0.3) % Absolute Neutrophils (1.2-6.7) 10^3/uL Absolute Lymphocytes (1.2-3.4) 10^3/uL Absolute Monocytes (0.1-0.8) 10^3/uL Absolute Eosinophils (0.0-0.7) 10^3/uL Absolute Basophils (0.0-0.2) 10^3/uL PT (9.3-11.0) sec 11.5 H INR (0.9-1.1) 1.1 APTT (21.5-31.9) sec 25.0 VBG Lactate (0.6-1.4) mmol/L Sodium (136-145) mmol/L Potassium (3.5-5.1) mmol/L Chloride (98-107) mmol/L Carbon Dioxide (21.0-32.0) mmol/L Anion Gap (3-11) mmol/L BUN (7-18) mg/dL Creatinine (0.55-1.02) mg/dL Est GFR (CKD-EPI 2020) (mL/min/1.73m2) Glucose (74-106) mg/dL Calcium (8.5-10.1) mg/dL Total Bilirubin (0.2-1.0) mg/dL AST (15-37) U/L ALT (14-59) U/L Alkaline Phosphatase (46-116) U/L Troponin I (<or=60) ng/L Total Protein (6.4-8.2) g/dL Albumin (3.4-5.0) g/dL Lipase (16-77) U/L Urine Color (Yellow) Yellow Urine Clarity (Clear) Sl Cloudy Urine pH (5-8) 6.5 Ur Specific Cooks (1.005-1.025) >= 1.030 H Urine Protein (Negative) mg/dL >=300 H Urine Ketones (Negative) mg/dL Trace H Urine Blood (Negative) Small H Urine Nitrite (Negative) Positive H Urine Bilirubin (Negative) Negative Urine Urobilinogen (Up to 0.2) mg/dL 0.2 Ur Leukocyte Esterase (Negative) Negative Urine RBC (0-2) HPF 3-5 H Urine WBC (0-5) HPF 5-10 Ur Epithelial Cells (Negative) HPF Negative Urine Crystals (Negative) HPF Negative Urine Bacteria (Negative) HPF Many Urine Mucus (Negative) Negative Urine Other (Negative) Few Transitional Ur Culture Indicated? Yes Urine Glucose (Negative) mg/dL 250 H Ethyl Alcohol (<10) mg/dL COVID-19 Source Nasopharynx SARS-CoV-2 (PCR) (Negative) Negative Influenza Type A (PCR) (Negative) Negative Influenza Type B (PCR) (Negative) Negative RSV (PCR) (Negative) Negative
[2022-12-16] MEDS: Ondansetron 4 MG/2 ML VIAL (01:54)
[2022-12-16] MEDS: Metoprolol 5 MG/5 ML VIAL IVP (03:20)
--- NOTE | 2022-12-16 03:22 | DI.VRAD_ITS ---
PROCEDURE INFORMATION: Exam: CT Chest With Contrast; Diagnostic Exam date and time: 12/16/2022 1:27 AM Age: 77 years old Clinical indication: Abdominal pain; Generalized; Chest pressure; Prior surgery; Surgery date: 6+ months; Surgery type: Gallbladder removed; Additional info: Vomiting, chest pain, diarrhea TECHNIQUE: Imaging protocol: Diagnostic computed tomography of the chest with contrast. Radiation optimization: All CT scans at this facility use at least one of these dose optimization techniques: automated exposure control; mA and/or kV adjustment per patient size (includes targeted exams where dose is matched to clinical indication); or iterative reconstruction. Contrast material: OMNI 350; Contrast volume: 100 ml; Contrast route: INTRAVENOUS (IV); COMPARISON: CT CHEST/ABD/PEL W 11/25/2022 4:01 AM FINDINGS: Thyroid: 8 mm hypodense right thyroid lobe nodule, unchanged. Lungs: 12 mm irregular nodular focus within the right upper lobe, with minimal adjacent architectural distortion (series 4, image 10), not significantly changed from comparison study. Mild bibasilar atelectasis. Pleural spaces: Unremarkable. No pneumothorax. No pleural effusion. Heart: Normal. Coronary arteries: Mild atherosclerotic disease of the visualized right coronary artery. Lymph nodes: No pathologically-enlarged lymph nodes. Vasculature: Minimal atherosclerotic disease of the thoracic aorta, without aneurysm or dissection. Diaphragm: Small-sized hiatal hernia. Bones/joints: Multiple old bilateral lateral and posterior rib fractures. Multilevel thoracic spine degenerative changes. Soft tissues: Normal. IMPRESSION: 1. No acute thoracic abnormality. 2. 12 mm irregular nodular focus within the right upper lobe, with minimal adjacent architectural distortion (series 4, image 10), not significantly changed from comparison study. PROCEDURE INFORMATION: Exam: CT Abdomen And Pelvis With Contrast Exam date and time: 12/16/2022 1:27 AM Age: 77 years old Clinical indication: Abdominal pain; Generalized; Chest pressure; Prior surgery; Surgery date: 6+ months; Surgery type: Gallbladder removed; Additional info: Vomiting, chest pain, diarrhea TECHNIQUE: Imaging protocol: Computed tomography of the abdomen and pelvis with contrast. Radiation optimization: All CT scans at this facility use at least one of these dose optimization techniques: automated exposure control; mA and/or kV adjustment per patient size (includes targeted exams where dose is matched to clinical indication); or iterative reconstruction. Contrast material: OMNI 350; Contrast volume: 100 ml; Contrast route: INTRAVENOUS (IV); COMPARISON: CT CHEST/ABD/PEL W 11/25/2022 4:01 AM FINDINGS: Diaphragm: Small-sized hiatal hernia. Liver: Nodular hepatic peripheral contour, compatible cirrhosis. Small volume ascites, secondary to cirrhosis. Gallbladder and bile ducts: Gallbladder surgically absent. Pancreas: Normal. Spleen: Normal. Adrenal glands: Mild left adrenal hyperplasia. Kidneys and ureters: Multiple bilateral simple renal cysts, for which no further evaluation necessary. Stomach and bowel: Normal. Appendix: No evidence of appendicitis. Intraperitoneal space: 7.6 x 5.4 cm heterogeneous fat and soft tissue attenuation mass within the right lower pelvis (series 5, image 932), unchanged. Vasculature: Atherosclerotic disease of the abdominal aorta. Lymph nodes: Unremarkable. No enlarged lymph nodes. Urinary bladder: Unremarkable as visualized. Reproductive: Unremarkable as visualized. Bones/joints: Multilevel lumbar spine degenerative disc space narrowing and osteophyte formation. Grade 1 degenerative anterolisthesis of L4 on L5. Soft tissues: Normal. IMPRESSION: 1. No acute abdominal or pelvic abnormality. 2. 7.6 x 5.4 cm heterogeneous fat and soft tissue attenuation mass within the right lower pelvis (series 5, image 932), unchanged. 3. Cirrhosis, with associated small volume ascites. Dictated and Authenticated by: Franki Doll MD. Ordering:SHADI Miller MD
[2022-12-16 03:43] LABS: Troponin I < 50 ng/L (<or=60)
[2022-12-16] MEDS: Metoclopramide 10 MG/2 ML VIAL 20 MG IVP (03:51)
[2022-12-16] MEDS: Normal Saline 1,000 ML 150 ML IV (04:12)
[2022-12-16] MEDS: Fosfomycin Tromethamine 3 GM PACKET PO (04:13)
[2022-12-16 05:33] LABS: Lactate 1.7 mmol/L (0.6-1.4)
[2022-12-16] MEDS: Ondansetron O.D.T. 4 MG TABEF, 3 TABS/BTL PO (06:35)
== END 2022-12-16 07:24 | disposition home or self-care (01) ==
PROVIDERS: Emergency Provider Student in an Organized Health Care Education/Training Program; PCP Family Medicine
DX: E86.0 Dehydration (principal); J45.909 Unspecified asthma, uncomplicated; R74.02 Elevation of levels of lactic acid dehydrogenase [LDH]; R10.811 Right upper quadrant abdominal tenderness; R10.813 Right lower quadrant abdominal tenderness; I10 Essential (primary) hypertension; Z98.51 Tubal ligation status; Z79.51 Long term (current) use of inhaled steroids; Z20.822 Contact with and (suspected) exposure to COVID-19; D69.6 Thrombocytopenia, unspecified
CPT/HCPCS: 36415; 74177; 80053; 83690; 87077; 87637; 93005; 96361; 96374; 96375; 99284; 99285; 71260; 80320; 81003; 81015; 83605; 84484; 85025; 85610; 85730; 87086; 87186; 93010; J2270; J2405; J2765; J3490

== ENCOUNTER 2022-12-22 06:49 | Emergency (ER) | payer MEDICARE, SELFPAY ==
[2022-12-22 06:50] VITALS: BP 155/83; PULSE 94; RESP 18; TEMP 36.2; O2SAT 97
[2022-12-22] MEDS: Lidocaine 5% Patch 1 PATCH TP (07:00)
--- NOTE | 2022-12-22 07:04 | ED.GENADUL_ITS ---
Discharge Plan Discharge Details Chief Complaint: Fall/Non TraumaCriteria Primary Care Provider: Lavelle Galindo ED Provider: Paul Chavira Home Meds and New Rx's Prescriptions: No Action Xiidra 5 % dropperette 1 drp ophthalmic (eye) BID Rx Instructions: administer approximately 12 hours apart budesonide [Pulmicort] 0.5 mg/2 mL suspension for nebulization 0.5 mg inhalation DAILY Qty: 60 5RF Patient Comments: pt states meds come in blister pack labeled daily by [employer] and she takes them but doesn't know the names furosemide 20 mg tablet See Rx Instructions PO BID Qty: 180 3RF Patient Comments: pt states meds come in blister pack labeled daily by [employer] and she takes them but doesn't know the names Rx Instructions: orally twice a day; 3 tabs (60mg) in AM and 2 tabs(40mg in afternoon; ipratropium-albuterol 0.5 mg-3 mg(2.5 mg base)/3 mL solution for nebulization 3 ml inhalation Q6H PRN Patient Comments: pt states meds come in blister pack labeled daily by [employer] and she takes them but doesn't know the names Myrbetriq 50 mg tablet extended release 24 hr 50 mg PO DAILY Qty: 30 12RF albuterol sulfate [Ventolin HFA] 90 mcg/actuation HFA aerosol inhaler 2 puff inhalation QID PRN (Reason: shortness of breath or wheezing) Qty: 8.5 1RF amlodipine 10 mg tablet 10 mg PO DAILY Qty: 90 3RF Patient Comments: pt states meds come in blister pack labeled daily by [employer] and she takes them but doesn't know the names buspirone 5 mg tablet 5 mg PO BID Qty: 60 5RF Patient Comments: pt states meds come in blister pack labeled daily by [employer] and she takes them but doesn't know the names folic acid 1 mg tablet 1 mg PO DAILY Qty: 90 3RF Patient Comments: pt states meds come in blister pack labeled daily by [employer] and she takes them but doesn't know the names melatonin 3 mg capsule 6 mg PO HS Qty: 180 3RF Patient Comments: pt states meds come in blister pack labeled daily by [employer] and she takes them but doesn't know the names metoprolol tartrate 50 mg tablet 50 mg PO DAILY Qty: 90 3RF Patient Comments: pt states meds come in blister pack labeled daily by [employer] and she takes them but doesn't know the names mirtazapine 7.5 mg tablet 7.5 mg PO QHS Qty: 90 4RF Patient Comments: pt states meds come in blister pack labeled daily by [employer] and she takes them but doesn't know the names sucralfate 1 gram tablet 1 g PO BID Qty: 60 11RF Patient Comments: pt states meds come in blister pack labeled daily by [employer] and she takes them but doesn't know the names thiamine HCl (vitamin B1) 100 mg tablet 100 mg PO DAILY Qty: 90 3RF Patient Comments: pt states meds come in blister pack labeled daily by [employer] and she takes them but doesn't know the names valacyclovir [Valtrex] 500 mg tablet 500 mg PO DAILY Qty: 90 3RF Patient Comments: pt states meds come in blister pack labeled daily by [employer] and she takes them but doesn't know the names Rx Instructions: Take 500 mg BID for 3 days, then take daily fluticasone propionate 50 mcg/actuation spray,suspension 2 spray NS daily prn Qty: 16 5RF Patient Comments: pt states meds come in blister pack labeled daily by [employer] and she takes them but doesn't know the names cyanocobalamin (vitamin B-12) [Vitamin B-12] 500 mcg tablet 1,000 mcg PO DAILY Qty: 180 3RF Patient Comments: pt states meds come in blister pack labeled daily by [employer] and she takes them but doesn't know the names ferrous sulfate 325 mg (65 mg iron) tablet 325 mg PO BID Qty: 180 3RF Patient Comments: pt states meds come in blister pack labeled daily by [employer] and she takes them but doesn't know the names Rx Instructions: do not take within 2 hours of antibiotics multivitamin [Multiple Vitamins] Tablet 1 tab PO DAILY Qty: 90 3RF Patient Comments: pt states meds come in blister pack labeled daily by [employer] and she takes them but doesn't know the names quetiapine 25 mg tablet See Rx Instructions PO BID Qty: 60 5RF Patient Comments: pt states meds come in blister pack labeled daily by [employer] and she takes them but doesn't know the names Rx Instructions: 0.5 tab PO twice a day; spironolactone [Aldactone] 50 mg tablet 50 mg PO BID Qty: 180 3RF Patient Comments: pt states meds come in blister pack labeled daily by [employer] and she takes them but doesn't know the names venlafaxine 75 mg capsule,extended release 24hr 75 mg PO DAILY Qty: 90 3RF Hold Instructions: Home Medication placed on hold at Doctor's office Patient Comments: pt states meds come in blister pack labeled daily by [employer] and she takes them but doesn't know the names. aspirin 81 mg tablet,delayed release (DR/EC) 81 mg PO DAILY Qty: 90 3RF Patient Comments: pt states meds come in blister pack labeled daily by [employer] and she takes them but doesn't know the names lorazepam 0.5 mg tablet 0.5 mg PO QHS PRN (Reason: anxiety) Qty: 20 0RF ondansetron HCl 4 mg tablet 4 mg PO Q6H PRN (Reason: nausea and vomiting) Qty: 20 1RF carboxymethylcellulose sodium [Refresh Plus] 0.5 % Dropperette 1 drp OU Q4H WHILE AWAKE Qty: 30 0RF Patient Comments: pt states meds come in blister pack labeled daily by [employer] and she takes them but doesn't know the names pantoprazole 40 mg Tablet,Delayed Release (Dr/Ec) 40 mg PO BID@0730,1999 Qty: 60 0RF Patient Comments: pt states meds come in blister pack labeled daily by [employer] and she takes them but doesn't know the names Medical Decision Making 77-year-old female with a past medical history of chronic cirrhosis of the liver, asthma/reactive airway disease, alcoholic cirrhosis, GERD, previous GI bleeds, palliative care patient in the past, with a history of a more recently diagnosed pelvic mass, recent clavicle fracture, who presents today for fall. Patient states that last evening she fell outside while looking for her dog. She mechanically tripped at that time and fell landing on her left hip. EMS was called, she was gotten up, and she was able to ambulate with mild assistance back to her chair. Per EMS she did not want to be evaluated at that time. This morning at 6 AM she called EMS again because she was having pain in her right leg and she cannot bear weight on it. She denies any other falls. She has not hit her head. She denies any loss of consciousness. She describes the pain as from her hip to her foot on the left. No other complaints at this time Exam demonstrates tenderness in the left hip. Minimal pain with logroll. Moderate pain with flexion at the left hip. Concern for fracture. No other signs of trauma on exam at this time clinically. We will get an x-ray, will monitor closely and reassess. HPI General Date/Time Provider Initiated Documentation: 12/22/22 06:53 . HPI Narrative: 77-year-old female with a past medical history of chronic cirrhosis of the liver, asthma/reactive airway disease, alcoholic cirrhosis, GERD, previous GI bleeds, palliative care patient in the past, with a history of a more recently diagnosed pelvic mass, recent clavicle fracture, who presents today for fall. Patient states that last evening she fell outside while looking for her dog. She mechanically tripped at that time and fell landing on her left hip. EMS was called, she was gotten up, and she was able to ambulate with mild assistance back to her chair. Per EMS she did not want to be evaluated at that time. This morning at 6 AM she called EMS again because she was having pain in her right leg and she cannot bear weight on it. She denies any other falls. She has not hit her head. She denies any loss of consciousness. She describes the pain as from her hip to her foot on the left. No other complaints at this time Related Data Home Medications Medication Instructions Recorded Confirmed carboxymethylcellulose sodium 0.5 1 drp OU Q4H WHILE AWAKE #30 ea 06/20/19 12/16/22 % eye drops in a dropperette (Refresh Plus) lifitegrast 5 % eye drops in a 1 drp ophthalmic (eye) BID 08/05/20 12/16/22 dropperette (Xiidra) ipratropium 0.5 mg-albuterol 3 mg 3 ml inhalation Q6H PRN 12/25/21 12/16/22 (2.5 mg base)/3 mL nebulization soln albuterol sulfate 90 mcg/actuation 2 puff inhalation QID PRN 02/08/22 12/16/22 aerosol inhaler (Ventolin HFA) shortness of breath or wheezing #8.5 grams amlodipine 10 mg tablet 10 mg PO DAILY #90 tabs 02/08/22 12/16/22 buspirone 5 mg tablet 5 mg PO BID #60 tabs 02/08/22 12/16/22 folic acid 1 mg tablet 1 mg PO DAILY #90 tabs 02/08/22 12/16/22 melatonin 3 mg capsule 6 mg PO HS #180 caps 02/08/22 12/16/22 metoprolol tartrate 50 mg tablet 50 mg PO DAILY #90 tabs 02/08/22 12/16/22 mirtazapine 7.5 mg tablet 7.5 mg PO QHS #90 tabs 02/08/22 12/16/22 sucralfate 1 gram tablet 1 g PO BID #60 tabs 02/08/22 12/16/22 thiamine HCl (vitamin B1) 100 mg 100 mg PO DAILY #90 tabs 02/08/22 12/16/22 tablet valacyclovir 500 mg tablet 500 mg PO DAILY #90 tabs 02/08/22 12/16/22 (Valtrex) fluticasone propionate 50 2 spray NS daily prn #16 grams 03/06/22 12/16/22 mcg/actuation nasal spray,suspension budesonide 0.5 mg/2 mL suspension 0.5 mg (2 mL) inhalation DAILY #60 05/06/22 12/16/22 for nebulization (Pulmicort) mL pantoprazole 40 mg tablet,delayed 40 mg PO BID@0730,2000 #60 tabs 05/21/22 12/16/22 release cyanocobalamin (vitamin B-12) 500 1,000 mcg PO DAILY #180 tabs 07/10/22 12/16/22 mcg tablet (Vitamin B-12) ferrous sulfate 325 mg (65 mg 325 mg PO BID #180 tabs 07/10/22 12/16/22 iron) tablet multivitamin (Multiple Vitamins 1 tab PO DAILY #90 tabs 07/10/22 12/16/22 tablet) quetiapine 25 mg tablet See Rx Instructions PO BID #60 tabs 07/10/22 12/16/22 spironolactone 50 mg tablet 50 mg PO BID #180 tabs 07/10/22 12/16/22 (Aldactone) venlafaxine 75 mg capsule,extended 75 mg PO DAILY #90 caps 07/10/22 12/16/22 release 24 hr mirabegron 50 mg tablet,extended 50 mg PO DAILY #30 tabs 07/20/22 12/16/22 release 24 hr (Myrbetriq) aspirin 81 mg tablet,delayed 81 mg PO DAILY #90 tabs 08/05/22 12/16/22 release furosemide 20 mg tablet See Rx Instructions PO BID #180 08/11/22 12/16/22 tabs lorazepam 0.5 mg tablet 0.5 mg PO QHS PRN anxiety #20 tabs 12/01/22 12/16/22 ondansetron HCl 4 mg tablet 4 mg PO Q6H PRN nausea and 12/11/22 12/16/22 vomiting #20 tabs Previous Rx's Medication Instructions Recorded carboxymethylcellulose sodium 0.5 1 drp OU Q4H WHILE AWAKE #30 ea 06/20/ % eye drops in a dropperette (Refresh Plus) albuterol sulfate 90 mcg/actuation 2 puff inhalation QID PRN 02/08/22 aerosol inhaler (Ventolin HFA) shortness of breath or wheezing #8.5 grams amlodipine 10 mg tablet 10 mg PO DAILY #90 tabs 02/08/22 buspirone 5 mg tablet 5 mg PO BID #60 tabs 02/08/22 folic acid 1 mg tablet 1 mg PO DAILY #90 tabs 02/08/22 melatonin 3 mg capsule 6 mg PO HS #180 caps 02/08/22 metoprolol tartrate 50 mg tablet 50 mg PO DAILY #90 tabs 02/08/22 mirtazapine 7.5 mg tablet 7.5 mg PO QHS #90 tabs 02/08/22 sucralfate 1 gram tablet 1 g PO BID #60 tabs 02/08/22 thiamine HCl (vitamin B1) 100 mg 100 mg PO DAILY #90 tabs 02/08/22 tablet valacyclovir 500 mg tablet 500 mg PO DAILY #90 tabs 02/08/22 (Valtrex) fluticasone propionate 50 2 spray NS daily prn #16 grams 03/06/22 mcg/actuation nasal spray,suspension budesonide 0.5 mg/2 mL suspension 0.5 mg (2 mL) inhalation DAILY #60 05/06/22 for nebulization (Pulmicort) mL pantoprazole 40 mg tablet,delayed 40 mg PO BID@0730,1999 #60 tabs 05/21/22 release cyanocobalamin (vitamin B-12) 500 1,000 mcg PO DAILY #180 tabs 07/10/22 mcg tablet (Vitamin B-12) ferrous sulfate 325 mg (65 mg 325 mg PO BID #180 tabs 07/10/22 iron) tablet multivitamin (Multiple Vitamins 1 tab PO DAILY #90 tabs 07/10/22 tablet) quetiapine 25 mg tablet See Rx Instructions PO BID #60 tabs 07/10/22 spironolactone 50 mg tablet 50 mg PO BID #180 tabs 07/10/22 (Aldactone) venlafaxine 75 mg capsule,extended 75 mg PO DAILY #90 caps 07/10/22 release 24 hr mirabegron 50 mg tablet,extended 50 mg PO DAILY #30 tabs 07/20/22 release 24 hr (Myrbetriq) aspirin 81 mg tablet,delayed 81 mg PO DAILY #90 tabs 08/05/22 release furosemide 20 mg tablet See Rx Instructions PO BID #180 08/11/22 tabs lorazepam 0.5 mg tablet 0.5 mg PO QHS PRN anxiety #20 tabs 12/01/22 ondansetron HCl 4 mg tablet 4 mg PO Q6H PRN nausea and 12/11/22 vomiting #20 tabs Allergies Allergy/AdvReac Type Severity Reaction Status Date / Time Penicillins Allergy Mild Rash Verified 12/22/22 06:54 ramipril Allergy Unknown ITCHING Verified 12/22/22 06:54 meperidine [From Demerol] AdvReac Severe Nausea Verified 12/22/22 06:54 bupropion AdvReac Mild GI upset Verified 12/22/22 06:54 AMBER Inhibitors AdvReac Unknown COUGH Verified 12/22/22 06:54 alendronate sodium AdvReac Unknown GI Distress Verified 12/22/22 06:54 clarithromycin AdvReac Unknown intolerant Verified 12/22/22 06:54 paroxetine AdvReac Unknown Diarrhea Verified 12/22/22 06:54 General Stated Complaint: Fall/Non TraumaCriteria JORDAN: 3 Review of Systems All systems reviewed & are unremarkable except as noted in HPI and below PFSH All Active Problems Dehydration (Acute) Nausea and vomiting (Acute) Multiple rib fractures (Acute) Closed right clavicular fracture (Acute) Cervical spondylosis (Acute) Fracture of humeral head, right, closed (Acute) Opacity of lung on imaging study (Acute) Abdominal ascites (Acute) Cirrhosis of liver (Acute) Pelvic mass (Acute) Alcohol intoxication (Acute) Fall (Acute) Fatigue (Acute) Sleep disturbance (Acute) Sinus tachycardia (Acute) High anion gap metabolic acidosis (Acute) Elevated blood pressure reading with diagnosis of hypertension (Acute) Pincer nail deformity (Acute) Insomnia (Acute) Thrombocytopenia (Chronic) Elevated bilirubin (Acute) Mixed stress and urge urinary incontinence (Acute) Thyroid nodule (Acute) Anxiety (Chronic) Adverse effect of metronidazole (Acute) Medication monitoring encounter (Acute) Advance care planning (Acute) Cirrhosis of liver with ascites (Acute) Animal bite of right hand with infection (Acute) Umbilical hernia (Acute) Hyperbilirubinemia (Acute) Shortness of breath (Acute) Elevated blood pressure reading without diagnosis of hypertension (Acute) Left arm pain (Acute) Ambulatory dysfunction (Acute) Incontinence (Acute) Anorexia (Acute) Headache (Acute) Depression (Chronic) Chest pain (Acute) Foot pain, right (Acute) Tendinitis of left rotator cuff (Acute) Macrocytosis (Acute 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 Leukopenia (Acute) Headache (Acute) Epigastric abdominal pain (Acute) Calcific tendinitis of left shoulder (Acute) Pulmonary mass (Acute) spiculated mass Pneumonia (Acute) Depression with suicidal ideation (Acute) Alcohol abuse (Chronic) Diarrhea (Acute) Epigastric pain (Acute) Dehydration (Acute) Discharge planning issues (Acute) Difficult intravenous access (Acute) Multiple IV attempts, usually requires ultrasound placement. PTSD (post-traumatic stress disorder) (Acute) Anemia (Chronic) Depression (Chronic) Foot pain, right (Acute) T12 compression fracture (Acute) Presacral mass (Chronic) Deviated nasal septum (Acute) Frequent falls (Chronic) Head injury (Acute) Ambulatory dysfunction (Chronic) Shoulder pain, right (Chronic) Suicidal ideation (Acute) Dry eye (Acute) Pruritus (Acute) Dystrophic nail (Acute) AMBER (acute kidney injury) (Acute) Iron deficiency anemia (Chronic) Fall (Acute) Atelectasis of left lung (Chronic) Advance directive on file (Acute) Nodule of upper lobe of right lung (Acute ~09/13/18) 09/13/18 [facility]; 12mm SPICULATED -kb Cataract (Chronic 11/07/15) Hypertension (Chronic) high today; she will check readings at home Hyperlipidemia (Chronic) Back pain, chronic (Chronic) Depression (Chronic) Osteopenia (Chronic) Medical History Adjustment disorder with depressed mood Alcoholic ketosis Anemia Cervical radicular pain neck pain and [facility]D [facility] 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) pls refrain from alcohol Chronic alcoholism she will not stop drinking unless she checks with me, so that we can help her avert withdrawal I do not think she is capable on her own--she would need placement to achieve required goal of 3 months of sobriety Chronic diarrhea Closed right humeral fracture Corneal ulcer, right (~08/23/18) 08/23/18; UV- Fracture of humerus, left, closed Genital herpes simplex recurrent gential; suppressive Valtrex GERD (gastroesophageal reflux disease) GI bleed (12/20/16) Hypertension Hypokalemia Hypokalemia Hypomagnesemia Incidental lung nodule, greater than or equal to 8mm 1cm, spiculated, stable for many years, recommend f/u in 6 mo Multiple rib fractures 03/11/19 [facility] Non-cardiac chest pain (09/21/16) [facility] [place]21[place]16 NEGATIVE MP Osteoarthritis Palliative care patient (03/21/17) Pancreatitis, alcoholic, acute Peripheral edema Photophobia of right eye Pleural effusion on left 03/11/19 [facility] Presacral mass (~09/15/18) 09/15/18 [facility] Sciatica right, epidural injuections [facility] Tubular adenoma of colon (01/28/17) Urinary incontinence 01/24/13 urethral suspension and sling at [facility] [place] (bladder suspension 1991) 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 Bladder repair. Repair bladder injury, simple S/P laparoscopic cholecystectomy (~05/19/22) Family History Mother No problems noted. Father , DROWNED at age 50. No problems noted. Sister Personal history of malignant neoplasm MELANOMA Sister No problems noted. Grandfather Personal history of malignant neoplasm STOMACH Grandfather Personal history of malignant neoplasm PROSTATE Grandmother Heart disease [place] Acute ill-defined cerebrovascular disease Grandmother Personal history of malignant neoplasm UTERINE Aunt , [place] Heart disease [place] Aunt , [place] Heart disease Brother No problems noted. Social History Smoking/Tobacco Use Status: Former Tobacco Use Quit Date: 08/29/80 Smoking risk assessment performed?: Yes Alcohol Intake: current Alcohol Intake frequency: 3 or more drinks per day Alcohol type: hard liquor Drug use: Never Substance use type: does not use Details: Last alcoholic drink [email or web address], 2 days ago Current gender identity: female Do you feel safe at home: Yes Do you feel safe in your relationship?: No Additional Social history: Has 1 dog, 4 cats. Exam Narrative Exam Narrative: 1.Const: Well-nourished, Well-developed, appearing stated age 2.Eyes: PERRL, no conjunctival injection, and symmetrical lids. 3.ENT: Atraumatic external nose and ears. Moist MM. Neck: Symmetric, trachea midline, No thyromegaly. There is no evidence of raccoon eyes, bernard sign, CSF rhinorrhea, mastoid tenderness, cranial crepitus, hemotympanum, exophthalmos, or hyphema. Patient demonstrates intact dentition with no signs of tooth avulsion or fracture, no signs of jaw deformity, no evidence of a LeFort's fracture, with an intact palate, nose and orbital region. There is no evidence of a nasal septal hematoma. No proptosis. Jaw closes symmetrically. Airway is clear. 4.CVS: +S1/S2, No murmurs or gallops. Peripheral pulses 2+ and equal in all extremities. Brisk capillary refill in all extremities. 5.RESP: Unlabored respiratory effort. Clear to auscultation bilaterally. No wheezes rales or rhonchi 6.GI: Soft, Nontender/Nondistended, No hepatosplenomegaly. No guarding or rebound. 7.MSK: Normocephalic, left hip demonstrates mild tenderness. No tenderness in the mid femur the knee, tibia/fibula, or the left foot. Patient is unable to lift her leg secondary to pain on the left. Right leg she is able to lift somewhat. No pain in the right hip or right leg. No abdominal pain or tenderness. No chest wall pain or tenderness, no cervical or cranial pain or tenderness. 8.Skin: Warm, Dry. No rashes or lesions. 9.Neuro: strategic partnership manager II-XII grossly intact. Sensation grossly intact, no focal neurologic deficits. 10.Psych: (AAO) x3. Appropriate mood and affect Course Vital Signs Vital signs: Vital Signs Temperature 36.2 C L 12/22/22 06:50 Pulse 94 H 12/22/22 06:50 Respiratory Rate 18 12/22/22 06:50 Blood Pressure 155/83 H 12/22/22 06:50 Pulse Oximetry 97 12/22/22 06:50 Temperature 36.2 C L 12/22/22 06:50 Temperature Source Tympanic 12/22/22 06:50 Pulse 94 H 12/22/22 06:50 Respiratory Rate 18 12/22/22 06:50 Respiratory Effort Normal 12/22/22 06:54 Blood Pressure 155/83 H 12/22/22 06:50 Blood Pressure Position Supine 12/22/22 06:50 Pulse Oximetry 97 12/22/22 06:50 Oxygen Delivery Method Room Air 12/22/22 06:50 Oxygen Flow Rate 0 12/22/22 06:50 Pain Level 7 12/22/22 06:56 PAWSS Have you Been Recently Intoxicated or Drunk Within the Last 30 days?: Yes Have you Ever Experienced Previous Episodes of Alcohol Withdrawal?: Yes Have you ever Experienced Withdrawal Seizures?: Yes Have you ever Experienced Delirium Tremens(DT)s?: Yes Have you ever undergone Alcohol Rehabilitation Treatment (i.e, inpt ot outpatient treatment programs)?: Yes Have you ever Experienced Blackouts?: Yes Have you ever Combined Alcohol with other Downers within the last 90 days?: No Have you ever Combined Alcohol with any other Substance of Abuse during the last 90 days?: No Positive Blood Alcohol level on Presentation? [PCS.BAL]: No Evidence of Increased Autonomic Activity (i.e. HR>120, tremor, sweating, agitation, nausea)?: No Result: 6
[2022-12-22 07:53] LABS: Abs Immature Grans 0.02 10^3/uL (0.0-0.06); Absolute Basophil Count 0.01 10^3/uL (0.0-0.2); Absolute Lymphocyte Count 0.78 10^3/uL (1.2-3.4); Absolute Neutrophil Count 2.96 10^3/uL (1.2-6.7); Basophils % 0.3; HCT 29.9 % (36.0-46.0); Immature Grans % 0.5; Lymphocytes % 19.6; MCH 33.1 pg (27.0-33.0); MCHC 33.4 % (32.0-36.0); MCV 99 fL (80-95); MPV 9.6 fL (8.0-11.0); Neutrophils % 74.6; Platelet Count 133 10^3/uL (130-400); RBC 3.02 10^6/uL (3.93-5.22); RDW 14.6 % (11.7-14.6); RDW-SD 52.7 fL; WBC 3.97 10^3/uL (4.4-10.8)
--- NOTE | 2022-12-22 08:05 | DI.RAD_ITS ---
Exam(s) XR PELVIS AP XR FEMUR LT EXAM: XR PELVIS AP CLINICAL HISTORY: fall, r/o fx. TECHNIQUE: 2D digital imaging was performed. COMPARISON: CT CT CHEST/ABD/PEL W from 11/15/2022 CR XR FEMUR LT from 12/22/2022 FINDINGS: BONES: No acute fracture is present. No bony destructive lesion is seen. The right ischium is partial ly obscured by a plastic buckle. JOINTS: No dislocation present. No joint space narrowing is present. Mild bilateral acetabular spurri ng. SI joints unremarkable. SOFT TISSUE: Normal. IMPRESSION: Unremarkable radiographs of the pelvis and left femur.. DATA REPOSITORY: RADIATION DOSE DELIVERED:
--- NOTE | 2022-12-22 08:16 | W.EDPROG ---
Date of service: 12/22/22 Time of Service: 07:30 Medical Decision Making Summary: 77-year-old female with a past medical history of chronic cirrhosis of the liver, asthma/reactive airway disease, alcoholic cirrhosis, GERD, previous GI bleeds, palliative care patient in the past, with a history of a more recently diagnosed pelvic mass, recent clavicle fracture, who presents today for fall.? Patient states that last evening she fell outside while looking for her dog.? She mechanically tripped at that time and fell landing on her left hip.? EMS was called, she was gotten up, and she was able to ambulate with mild assistance back to her chair.? Per EMS she did not want to be evaluated at that time.? This morning at 6 AM she called EMS again because she was having pain in her right leg and she cannot bear weight on it.? She denies any other falls.? She has not hit her head.? She denies any loss of consciousness.? She describes the pain as from her hip to her foot on the left.? No other complaints at this time patient had x-rays done in the emergency department ordered by Dr. Zamora which were read as negative by the radiologist. Patient received IM morphine and she is able to move her left leg and is able to ambulate she complains of pain on the lateral aspect more like trochanteric bursitis damned trauma. Differential Diagnosis Differential Diagnosis: 1. Hip fracture 2. Femur fracture 3. Pelvic fracture Medical Records Medical records reviewed: Yes I reviewed the patient's medical records. Imaging Data Radiologic Study: Attestation: I personally reviewed and interpreted this imaging study as follows: Imaging: X-Ray My impression: No fracture or dislocation seen in the femur or pelvis as interpreted by me Radiologist's impression: Accession No. : [id number] Creator : ROGELIO REAVES Dictator : ROGELIO REAVES New Car Get Ready Mechanic : Hardness Tester : ROGELIO REAVES Approver2 : Report Date : 12/22/2022 08:50:36 Exam(s) XR PELVIS AP XR FEMUR LT EXAM: XR PELVIS AP CLINICAL HISTORY: fall, r/o fx. TECHNIQUE: 2D digital imaging was performed. COMPARISON: CT CT CHEST/ABD/PEL W from 11/15/2022 CR XR FEMUR LT from 12/22/2022 FINDINGS: BONES: No acute fracture is present. No bony destructive lesion is seen. The right ischium is partially obscured by a plastic buckle. JOINTS: No dislocation present. No joint space narrowing is present. Mild bilateral acetabular spurring. SI joints unremarkable. SOFT TISSUE: Normal. IMPRESSION: Unremarkable radiographs of the pelvis and left femur.. DATA REPOSITORY: RADIATION DOSE DELIVERED: Lab Data Lab results narrative: Labs unremarkable except for mild hypokalemia which she received p.o. potassium and she takes it at home. Labs: White Blood C RUN DATE: 12/22/22 [facility] PAGE 1 RUN TIME: [id number] RUN USER: [place] [address] Susie Peterson MD PATIENT REPORT PATIENT: Leticia Ingram LOC: ER U #: [id number] /SX: 1945 F ROOM: RE12/22/[address]: Greg Rene M.D. STATUS: REG ER BED: DIS: SPEC #: [id number] RANDOLPH: 12/22/22 STATUS: COMP REQ #: [id number] RECD: 12/22/22 [facility] DR: DEREK ZAMORA DO ENTERED: 12/22/22 [facility] DR: HEIKE SERVIN, LAVELLE FAX #: ORDERED: CBC/Diff Test Result Flag Reference Verified WBC 3.97 L 4.4-10.8 10^3/uL 12/22/22 RBC 3.02 L 3.93-5.22 10^6/uL 12/22/22 HGB 10.0 L 11.2-15.7 g/dL 12/22/22 HCT 29.9 L 36.0-46.0 % 12/22/22 MCV 99 H 80-95 fL 12/22/22 MCH 33.1 H 27.0-33.0 pg 12/22/22 MCHC 33.4 32.0-36.0 % 12/22/22 RDW 14.6 11.7-14.6 % 12/22/22 Platelet Count 133 130-400 10^3/uL 12/22/22 MPV 9.6 8.0-11.0 fL 12/22/22 Neutrophils % 74.6 12/22/22 Lymphocytes % 19.6 12/22/22 Monocytes % 5.0 12/22/22 Eosinophils % 0.0 12/22/22 Basophils % 0.3 12/22/22 Immature Grans % 0.5 12/22/22 Nucleated RBC 0.0 0.0-0.3 % 12/22/22 Absolute Neutrophil Count 2.96 1.2-6.7 10^3/uL 12/22/22 Absolute Lymphocyte Count 0.78 L 1.2-3.4 10^3/uL 12/22/22 Absolute Monocyte Count 0.20 0.1-0.8 10^3/uL 12/22/22 Absolute Eosinophil Count 0.00 0.0-0.7 10^3/uL 12/22/22 Absolute Basophil Count 0.01 0.0-0.2 10^3/uL 12/22/22 Patient: Leticia Ingram LABORATORY Acct#[id number] Unit#[id number] RUN DATE: 12/22/22 [facility] PAGE 1 RUN TIME: [id number] RUN USER: [place] [address] Susie Peterson MD PATIENT REPORT PATIENT: Leticia Ingram LOC: ER U #: [id number] /SX: 1945 F ROOM: RE12/22/[address]: Greg Rene M.D. STATUS: REG ER BED: DIS: SPEC #: [id number] RANDOLPH: 12/22/22 STATUS: COMP REQ #: [id number] RECD: 12/22/22 [facility] [address]: DEREK ZAMORA DO ENTERED: 12/22/22 [facility] DR: LAVELLE GALINDO MD FAX #: ORDERED: CMP, Ethyl Alcohol Test Result Flag Reference Verified Calcium 9.1 8.5-10.1 mg/dL 12/22/22 Glucose 119 H 74-106 mg/dL 12/22/22 BUN 20 H 7-18 mg/dL 12/22/22 Creatinine 0.9 0.55-1.02 mg/dL 12/22/22 Estimated GFR 66.26 mL/min/1.73m2 12/22/22 The eGFR is calculated from a serum creatinine using the CKD-EPI 2020 equation. Other variables required for the equation are gender and age; this equation does not include a race coefficient. This equation has similar overall performance to previous equations except values may differ, in particular, in patients with higher values of eGFR and younger-aged adults. Total Protein 7.0 6.4-8.2 g/dL 12/22/22 Albumin 3.5 3.4-5.0 g/dL 12/22/22 Bilirubin, Total 1.0 0.2-1.0 mg/dL 12/22/22 Alk Phos 206 H 46-116 U/L 12/22/22 Sodium 138 136-145 mmol/L 12/22/22 Potassium 3.0 L 3.5-5.1 mmol/L 12/22/22 Chloride 101 98-107 mmol/L 12/22/22 CO2 22.6 21.0-32.0 mmol/L 12/22/22 Anion Gap 14.4 H 3-11 mmol/L 12/22/22 AST 40 H 15-37 U/L 12/22/22 ALT 23 14-59 U/L 12/22/22 Ethyl Alcohol 149.7 H <10 mg/dL 12/22/22 ETOH Reference Range = <10 mg/dL Legal Limit of Intoxication is 80 mg/dL This test is intended only for Medical purposes. Divide result by 1000 to convert to %(w/v) Discharge Plan Disposition Patient Disposition: Home W/Home Health Services Discharge Details Clinical Impression: Contusion of hip Primary Care Provider: Lavelle Galindo ED Provider: Greg Rene Home Meds and New Rx's Prescriptions: Continued Xiidra 5 % dropperette 1 drp ophthalmic (eye) BID Rx Instructions: administer approximately 12 hours apart budesonide [Pulmicort] 0.5 mg/2 mL suspension for nebulization 0.5 mg inhalation DAILY Qty: 60 5RF Patient Comments: pt states meds come in blister pack labeled daily by [facility] and she takes them but doesn't know the names furosemide 20 mg tablet See Rx Instructions PO BID Qty: 180 3RF Patient Comments: pt states meds come in blister pack labeled daily by [facility] and she takes them but doesn't know the names Rx Instructions: orally twice a day; 3 tabs (60mg) in AM and 2 tabs(40mg in afternoon; ipratropium-albuterol 0.5 mg-3 mg(2.5 mg base)/3 mL solution for nebulization 3 ml inhalation Q6H PRN Patient Comments: pt states meds come in blister pack labeled daily by [facility] and she takes them but doesn't know the names Myrbetriq 50 mg tablet extended release 24 hr 50 mg PO DAILY Qty: 30 12RF albuterol sulfate [Ventolin HFA] 90 mcg/actuation HFA aerosol inhaler 2 puff inhalation QID PRN (Reason: shortness of breath or wheezing) Qty: 8.5 1RF amlodipine 10 mg tablet 10 mg PO DAILY Qty: 90 3RF Patient Comments: pt states meds come in blister pack labeled daily by [facility] and she takes them but doesn't know the names buspirone 5 mg tablet 5 mg PO BID Qty: 60 5RF Patient Comments: pt states meds come in blister pack labeled daily by [facility] and she takes them but doesn't know the names folic acid 1 mg tablet 1 mg PO DAILY Qty: 90 3RF Patient Comments: pt states meds come in blister pack labeled daily by [facility] and she takes them but doesn't know the names melatonin 3 mg capsule 6 mg PO HS Qty: 180 3RF Patient Comments: pt states meds come in blister pack labeled daily by [facility] and she takes them but doesn't know the names metoprolol tartrate 50 mg tablet 50 mg PO DAILY Qty: 90 3RF Patient Comments: pt states meds come in blister pack labeled daily by [facility] and she takes them but doesn't know the names mirtazapine 7.5 mg tablet 7.5 mg PO QHS Qty: 90 4RF Patient Comments: pt states meds come in blister pack labeled daily by [facility] and she takes them but doesn't know the names sucralfate 1 gram tablet 1 g PO BID Qty: 60 11RF Patient Comments: pt states meds come in blister pack labeled daily by [facility] and she takes them but doesn't know the names thiamine HCl (vitamin B1) 100 mg tablet 100 mg PO DAILY Qty: 90 3RF Patient Comments: pt states meds come in blister pack labeled daily by [facility] and she takes them but doesn't know the names valacyclovir [Valtrex] 500 mg tablet 500 mg PO DAILY Qty: 90 3RF Patient Comments: pt states meds come in blister pack labeled daily by [facility] and she takes them but doesn't know the names Rx Instructions: Take 500 mg BID for 3 days, then take daily fluticasone propionate 50 mcg/actuation spray,suspension 2 spray NS daily prn Qty: 16 5RF Patient Comments: pt states meds come in blister pack labeled daily by [facility] and she takes them but doesn't know the names cyanocobalamin (vitamin B-12) [Vitamin B-12] 500 mcg tablet 1,000 mcg PO DAILY Qty: 180 3RF Patient Comments: pt states meds come in blister pack labeled daily by [facility] and she takes them but doesn't know the names ferrous sulfate 325 mg (65 mg iron) tablet 325 mg PO BID Qty: 180 3RF Patient Comments: pt states meds come in blister pack labeled daily by [facility] and she takes them but doesn't know the names Rx Instructions: do not take within 2 hours of antibiotics multivitamin [Multiple Vitamins] Tablet 1 tab PO DAILY Qty: 90 3RF Patient Comments: pt states meds come in blister pack labeled daily by [facility] and she takes them but doesn't know the names quetiapine 25 mg tablet See Rx Instructions PO BID Qty: 60 5RF Patient Comments: pt states meds come in blister pack labeled daily by [facility] and she takes them but doesn't know the names Rx Instructions: 0.5 tab PO twice a day; spironolactone [Aldactone] 50 mg tablet 50 mg PO BID Qty: 180 3RF Patient Comments: pt states meds come in blister pack labeled daily by [facility] and she takes them but doesn't know the names venlafaxine 75 mg capsule,extended release 24hr 75 mg PO DAILY Qty: 90 3RF Hold Instructions: Home Medication placed on hold at Doctor's office Patient Comments: pt states meds come in blister pack labeled daily by [facility] and she takes them but doesn't know the names. aspirin 81 mg tablet,delayed release (DR/EC) 81 mg PO DAILY Qty: 90 3RF Patient Comments: pt states meds come in blister pack labeled daily by [facility] and she takes them but doesn't know the names lorazepam 0.5 mg tablet 0.5 mg PO QHS PRN (Reason: anxiety) Qty: 20 0RF ondansetron HCl 4 mg tablet 4 mg PO Q6H PRN (Reason: nausea and vomiting) Qty: 20 1RF carboxymethylcellulose sodium [Refresh Plus] 0.5 % Dropperette 1 drp OU Q4H WHILE AWAKE Qty: 30 0RF Patient Comments: pt states meds come in blister pack labeled daily by [facility] and she takes them but doesn't know the names pantoprazole 40 mg Tablet,Delayed Release (Dr/Ec) 40 mg PO BID@ Qty: 60 0RF Patient Comments: pt states meds come in blister pack labeled daily by [facility] and she takes them but doesn't know the names Discharge Instructions Instructions: Contusion in Adults (ED) Discharge Data Discharge Physician: Greg Rene
[2022-12-22 08:17] LABS: ALT 23 U/L (14-59); AST 40 U/L (15-37); Albumin 3.5 g/dL (3.4-5.0); Alkaline Phosphatase 206 U/L (46-116); Anion Gap 14.4 mmol/L (3-11); BUN 20 mg/dL (7-18); CO2 22.6 mmol/L (21.0-32.0); CREATININE 0.9 mg/dL (0.55-1.02); Calcium 9.1 mg/dL (8.5-10.1); Chloride 101 mmol/L (98-107); ETHANOL BLOOD 149.7 mg/dL (<10); Estimated GFR 66.26 (mL/min/1.73m2); Glucose 119 mg/dL (74-106); Sodium 138 mmol/L (136-145)
[2022-12-22] MEDS: MORPHine 4 MG/ML SYR IM (09:40)
--- NOTE | 2022-12-23 09:34 | NUR.NOTE ---
Nursing Note: Patient called asking about black pants/gabino that she thinks were left here. SHe called the ambulance and they stated they left them in the room. I check the area that we keep patient belongings and they are not there. I told the patient and she stated they were the only ones that fit her. If we find them to please call her.
== END 2022-12-22 09:45 | disposition home health service (06) ==
PROVIDERS: Student in an Organized Health Care Education/Training Program; Emergency Provider Emergency Medicine Emergency Medical Services; PCP Family Medicine
DX: S70.02XA Contusion of left hip, initial encounter (principal); J45.909 Unspecified asthma, uncomplicated; I10 Essential (primary) hypertension; Z79.51 Long term (current) use of inhaled steroids; Z79.82 Long term (current) use of aspirin; W01.0XXA Fall on same level from slipping, tripping and stumbling without subsequent striking against object, initial encounter
CPT/HCPCS: 36415; 73552; 80053; 96372; 99284; 72170; 80320; 85025; J2270

== ENCOUNTER 2023-01-10 15:25 | Inpatient (IN) | payer MEDICARE, SELFPAY ==
[2023-01-10] VITALS (33 sets, daily range): BP systolic 160–192; BP diastolic 71–95; PULSE 0–134; RESP 13–24; TEMP 36.4–36.9; O2SAT 95–100
--- NOTE | 2023-01-10 15:45 | DI.CT_ITS ---
Exam(s) CT ABDOMEN PELVIS W EXAM: CT ABDOMEN PELVIS W CLINICAL HISTORY: generalize pain, etoh TECHNIQUE: Imaging Protocol: Axial computed tomography images with coronal and sagittal reformatted images were created and reviewed CONTRAST MATERIAL: Intravenous: Omnipaque 350 Contrast volume:100 mL Oral: No COMPARISON: CT CT CHEST/ABD/PEL W from 12/16/2022 FINDINGS: ABDOMEN: Lung Bases: Mild cardiomegaly. Mild coronary artery calcification. There is dependent atelectasis i n the lung bases. Liver: The liver has a nodular contour suggesting hepatic cirrhosis. There is decreased attenuation of the liver suggesting hepatic steatosis. No discrete hepatic masses present. No measurable mass. Portal, Superior Mesenteric, and Splenic Veins: Unremarkable. Gallbladder and Biliary Tract: Status post cholecystectomy. No significant biliary ductal dilatation . Pancreas: Normal density, no abnormal calcifications or inflammatory process. There is mild stranding seen around the pancreas and the duodenum. An inflammatory process such as pancreatitis or duodenit is should be considered. Please correlate clinically. Spleen: Normal. Adrenals: There is stable nodularity of the left adrenal gland. The right adrenal gland is unremarka ble. Kidneys: Normal size, contour and axis. There is left nephrolithiasis. No ureterolithiasis or hydron ephrosis. There are stable bilateral renal cysts. No follow-up is recommended. Abdominal Aorta: Abdominal portion non-dilated. Atherosclerosis is present. Bowel: The colon is largely collapsed. There is fluid seen throughout the colon which may reflect di arrheal illness. No evidence of obstruction or definite bowel wall thickening is present. This may be due to underdistention. No evidence of appendicitis. Peritoneal Cavity: There is a small amount of abdominal ascites and a small amount of pelvic ascites. The presacral mass is again seen and measures 3.0 transverse by 5.9 AP by 5.9 cc. This compares to 3.1 x 5.8 x 6.1 cm on the prior examination. No free air. Lymph Nodes: Within normal limits. Bones: Within normal limits for the patient's age. There are old bilateral healed rib fractures. Th ere is again seen grade 1 anterolisthesis of L4 on L5. The bones are unchanged compared to the prior examination. Soft Tissues: There are small bilateral fat containing inguinal hernias. PELVIS: Bladder: The urinary bladder is incompletely distended. There is diffuse thickening of the wall of t he urinary bladder. This is likely due to underdistention. Cystitis cannot be excluded. Please cor relate clinically. Reproductive Organs: Unremarkable as visualized. Lymph Nodes: Within normal limits. Bones: Within normal limits for the patient's age. There are fracture seen through the lateral aspec t of the right 6th through 10th ribs. There does appear to be very mild periosteal reaction suggesti ng a subacute nature. Please correlate with the patient's clinical history. IMPRESSION: 1. Fractures involving the lateral aspects of the right 6th through 10th ribs. There is a suggestion of some periosteal reaction suggesting a subacute nature. Please correlate clinically. 2. Stable presacral mass. 3. Stable abdominal and pelvic ascites. 4. Stable nodular contour of the liver suggesting a [place] cirrhosis. 5. There is fluid seen within the colon which may reflect a diarrheal illness. RADIATION DOSE DELIVERED: 955.43mGy.cm Total DLP DATA REPOSITORY: All CT scans at this facility are submitted to the National Radiology Data Registry (NRDR) Dose Index Registry (DIR) with the [employer] (ACR). RADIATION OPTIMIZATION: All CT scans at this facility use at least one of these dose optimization te chniques: automated exposure control; mA and/or kV adjustment per patient size (includes targeted exa ms where dose is matched to clinical indication); or iterative reconstruction.
--- NOTE | 2023-01-10 15:45 | RT.EKG_ITS ---
APPROVED REPORT Exam: Resting ECG Reason for Exam: weakness, vomiting Patient Location: E HR:113 bpm ECG Measurements Heart Rate 113 AXIS CO 177 P 73 QRSd 84 QRS -26 QT 355 T -3 QTc 487 Conclusion Sinus tachycardia...rate> 99 Inferior infarct, old...Q >35mS, II III aVF
[2023-01-10 16:19] LABS: Abs Immature Grans 0.03 10^3/uL (0.0-0.06); Absolute Basophil Count 0.01 10^3/uL (0.0-0.2); Absolute Lymphocyte Count 0.32 10^3/uL (1.2-3.4); Absolute Monocyte Count 0.18 10^3/uL (0.1-0.8); Absolute Neutrophil Count 4.54 10^3/uL (1.2-6.7); Basophils % 0.2; HCT 33.7 % (36.0-46.0); HGB 11.1 g/dL (11.2-15.7); Immature Grans % 0.6; Lymphocytes % 6.3; MCH 33.4 pg (27.0-33.0); MCHC 32.9 % (32.0-36.0); MCV 102 fL (80-95); MPV 8.7 fL (8.0-11.0); Monocytes % 3.5; Neutrophils % 89.4; Platelet Count 166 10^3/uL (130-400); RBC 3.32 10^6/uL (3.93-5.22); RDW 14.8 % (11.7-14.6); RDW-SD 55.8 fL; WBC 5.08 10^3/uL (4.4-10.8)
[2023-01-10 16:21] LABS: Lactate 4.3 mmol/L (0.6-1.4)
[2023-01-10 16:34] LABS: INR 1.1 (0.9-1.1); Prothrombin Time 11.2 sec (9.3-11.0)
[2023-01-10] MEDS: Prochlorperazine 10 MG/2 ML VIAL 5 MG IVP (16:34)
[2023-01-10] MEDS: Lactated Ringers 500 ML IV (16:39)
[2023-01-10 16:40] LABS: ALT 14 U/L (14-59); AST 30 U/L (15-37); Alkaline Phosphatase 242 U/L (46-116); Anion Gap 27.9 mmol/L (3-11); BUN 24 mg/dL (7-18); Bilirubin, Total 1.7 mg/dL (0.2-1.0); CO2 14.1 mmol/L (21.0-32.0); CREATININE 1.2 mg/dL (0.55-1.02); Calcium 9.9 mg/dL (8.5-10.1); Chloride 98 mmol/L (98-107); Estimated GFR 46.91 (mL/min/1.73m2); Glucose 187 mg/dL (74-106); Magnesium 1.5 mg/dL (1.8-2.4); Potassium 4.1 mmol/L (3.5-5.1); Sodium 140 mmol/L (136-145); Total Protein 7.6 g/dL (6.4-8.2); Troponin I < 50 ng/L (<or=60)
[2023-01-10 16:41] LABS: ETHANOL BLOOD < 3.0 mg/dL (<10); Lipase > 375 U/L (16-77)
[2023-01-10 16:56] LABS: Ammonia < 10 umol/L (11-32)
[2023-01-10 17:04] LABS: BE (Venous) -11 mmol/L (-2-3); HCO3 (Venous) 15 mmol/L (23-28); O2 Sat (Venous) 73 %; TCO2 (Venous) 14 mmol/L (24-29); pCO2 (Venous) 29 mmHg (41-51); pH (Venous) 7.32 (7.31-7.41); pO2 (Venous) 43 mmHg
[2023-01-10 18:08] LABS: Bilirubin Small (Negative); Blood Negative (Negative); Clarity Clear (Clear); Glucose Negative (Negative); Ketones >=160 mg/dL (Negative); Leukocyte Esterase Negative (Negative); Nitrite Positive (Negative); Specific Gravity 1.025 (1.005-1.025); Urobilinogen 0.2 mg/dL (Up to 0.2); pH 5.5 (5-8)
--- NOTE | 2023-01-10 18:15 | RT.EKG_ITS ---
APPROVED REPORT Exam: Resting ECG Reason for Exam: tachy Patient Location: E HR:107 bpm ECG Measurements Heart Rate 107 AXIS OK [id number] P [id number] QRSd 87 QRS -25 QT 372 T 3 QTc 498 Conclusion Atrial fibrillation...V-rate 107-108, irreg A-activity Inferior infarct, old...Q >35mS, II III aVF sinus with some motion artifact
[2023-01-10] MEDS: Omnipaque 350 MG/ML 100 ML BTL IJ (18:16)
[2023-01-10] MEDS: Normal Saline - Diluent 50 ML VIAL IJ (18:17)
[2023-01-10] MEDS: Normal Saline Flush 10 ML SYR IVP ×2 (18:17→22:05)
[2023-01-10 18:19] LABS: Bacteria Many HPF (Negative); C & S Indicated? Yes; Casts 0-2 Hyaline LPF (Negative); Crystals Negative HPF (Negative); Epithelial Cells Rare HPF (Negative); Mucus Negative (Negative); Other Cells Rare Transitional (Negative); RBC Negative HPF (0-2); WBC 0-2 HPF (0-5)
[2023-01-10] MEDS: Normal Saline 1,000 ML 1000 ML IV (18:28)
[2023-01-10] MEDS: LORazepam 2 MG/ML VIAL 1 MG IVP (18:31)
[2023-01-10] MEDS: MAGNESIUM SULFATE 1 GM/100 ML BAG IVPB (18:34)
[2023-01-10 19:23] LABS: Troponin I < 50 ng/L (<or=60)
--- NOTE | 2023-01-10 19:24 | DI.VRAD_ITS ---
PROCEDURE INFORMATION: Exam: CT Abdomen And Pelvis With Contrast Exam date and time: 01/10/2023 5:49 PM Age: 77 years old Clinical indication: Other: Generalized pain, ETOH; Prior surgery; Surgery date: 6+ months; Surgery type: Gallbladder removed TECHNIQUE: Imaging protocol: Computed tomography of the abdomen and pelvis with contrast. Radiation optimization: All CT scans at this facility use at least one of these dose optimization techniques: automated exposure control; mA and/or kV adjustment per patient size (includes targeted exams where dose is matched to clinical indication); or iterative reconstruction. Contrast material: OMNIPAQUE 350; Contrast volume: 100 ml; Contrast route: INTRAVENOUS (IV); COMPARISON: CT CHEST/ABD/PEL W 12/16/2022 1:27 AM FINDINGS: Lungs: Streaky dependent atelectasis. Liver: Probable fatty infiltration of the liver, difficult to confidently diagnose by CT imaging after administration of intravenous contrast. Mildly nodular hepatic contour with relative hypertrophy of the lateral left hepatic segment, nonspecific but commonly seen in the setting of cirrhotic change. Clinical correlation recommended. Gallbladder and bile ducts: Prior cholecystectomy. No biliary dilatation. Pancreas: Peripancreatic fat stranding and fluid. 3 mm cystic lesion in the pancreatic tail, image 288 of series 6, also vaguely demonstrated on the recent comparison exam. Spleen: Normal appearing spleen. Adrenal glands: Normal appearing adrenal glands. Kidneys and ureters: 2.8 cm right renal cyst. Additional smaller hypoattenuating renal lesions, incompletely characterized but statistically most likely additional small cysts. 2 mm nonobstructing left upper pole renal calculus. No hydronephrosis. No obstructing ureteral stones Stomach and bowel: No oral contrast. Stomach partially decompressed. Hazy fat stranding and fluid surrounding the proximal duodenum. No obvious duodenal wall thickening. No small bowel dilatation to suggest obstruction. Colon largely well evacuated of fecal material. Fluid throughout much of the colon and rectum suggesting diarrhea. Apparent mural thickening through the collapsed segments of the colon. Artifact of under distention? Acute colitis? Clinical correlation recommended. Appendix: Normal appendix. Intraperitoneal space: Moderate amount of ascites, also seen on the recent prior exam. No free air. Vasculature: Normal caliber abdominal aorta. Lymph nodes: No pathologically enlarged mesenteric, retroperitoneal, or pelvic sidewall lymph nodes. Urinary bladder: Urinary bladder largely decompressed but circumferentially thick-walled. Reproductive: Uterus and ovaries partially obscured but not grossly enlarged. Extraperitoneal space: 7.6 cm x 5.0 cm x 5.5 cm oval mass in the presacral space to the right of midline with fat density peripherally and lobulated heterogeneous soft tissue density centrally, stable compared with prior exams from December 16 and November 25, 2022. Bones/joints: New acute or early subacute fractures through the lateral aspect of the right, 6-10th ribs, not seen on the recent comparison exam from December 16, 2022. Multiple bilateral subacute-old rib fractures. No acute fracture seen among the bones of the abdomen or pelvis. Spinal degenerative change with discogenic degeneration, Schmorl's nodes, osteophytes, and facet arthrosis at multiple levels. Grade 1 anterolisthesis of L4 on L5. Soft tissues: Small fat containing bilateral inguinal region hernias. IMPRESSION: 1. New acute or early subacute fractures through the lateral aspect of the right 6th-10th ribs, not seen on the recent comparison exam from December 16. Multiple bilateral subacute-old rib fractures also noted. 2. 7.6 cm x 5.0 cm x 5.5 cm oval mass in the presacral space to the right of midline with fat density peripherally and lobulated heterogeneous soft tissue density centrally, stable compared with recent prior exams from December 16 and November 25, 2022. The etiology of this finding is uncertain although a neoplasm is suspected in the absence of other history. Direct comparison with remote prior imaging is recommended. If this finding has not been previously worked up, contrast-enhanced MRI of the pelvis would be recommended for additional evaluation although tissue sampling may be required for definitive diagnosis. 3. Hazy fat stranding and fluid surrounding the pancreas. Acute pancreatitis could have this appearance although correlation with laboratory values is recommended for diagnostic confirmation as third spacing of fluid in the retroperitoneum could produce a similar appearance. If acute pancreatitis is suspected clinically, secondary acute duodenitis may also be present. 4. 3 mm indeterminate cystic lesion in the pancreatic tail. A pancreatic cyst, cystic duct ectasia, or a small cystic neoplasm could have this appearance. This finding could be additionally evaluated by dedicated pancreas protocol MRI if as not been previously worked up. 5. Colon largely well evacuated of fecal material and collapsed through much of its course. Apparent mural thickening through the collapsed colon. Artifact of underdistention or acute colitis could have this appearance. Clinical correlation is recommended. Fluid throughout the colon suggesting diarrhea. 6. Circumferential bladder wall thickening, nonspecific. Artifact of incomplete distention, acute cystitis, or chronic outflow obstruction could produce this appearance. 7. Additional findings, as above. Dictated and Authenticated by: Luis Miguel Sagastume MD. Ordering:RIZWAN Anderson MD
[2023-01-10 19:47] LABS: Lactate 3.5 mmol/L (0.6-1.4)
--- NOTE | 2023-01-10 20:00 | W.PM.HP.N ---
Date of service: 01/10/23 Time of Service: 20:01 Assessment and Plan Assessment and plan (1) Acute pancreatitis: Status: Acute Assessment and plan: Alcoholic pancreatitis. Will maintain NPO with IVF and prn analgesics and antiemetics. Metabolic acidosis: combined lactic acidosis --no evidence of hypoperfusion -- and starvation/alcoholic ketoacidosis. Will track, but lactate already improving. EtOH: probable early withdrawal, will continue on CIWA. Rib fractures: apparently incidental as patient is not complaining of pain; and is showing no respiratory compromise. Per Palliative note 10/21 will maintain as DNR History of Present Illness History of Present Illness Chief Complaint: abdominal pain Narrative: 77 female with h/o chronic alcohol abuse here with 3 days of epigastric pain and nausea, some diarrhea as well. 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 Patient has received 1L IVF, 1 mg Ativan, 1 gm MgSO4 and 5 mg Compazine. Repeat lactate 3.5. I was asked to evaluate for admission. At present patient endorses ongoing epigastric pain, and is requesting antiemetic; denies diarrhea. Review of Systems Narrative: per HPI PFSH All Active Problems (Updated 01/10/23 @ 20:13 by CELINA Snow) Acute pancreatitis (Acute) Hypomagnesemia (Acute) Breast nodule (Acute) Dehydration (Acute) Nausea and vomiting (Acute) Contusion of hip (Acute) Sleep disturbance (Acute) Sinus tachycardia (Acute) High anion gap metabolic acidosis (Acute) Elevated blood pressure reading with diagnosis of hypertension (Acute) Pincer nail deformity (Acute) Insomnia (Acute) Thrombocytopenia (Chronic) Elevated bilirubin (Acute) Mixed stress and urge urinary incontinence (Acute) Thyroid nodule (Acute) Anxiety (Chronic) Adverse effect of metronidazole (Acute) Medication monitoring encounter (Acute) Advance care planning (Acute) Cirrhosis of liver with ascites (Acute) Animal bite of right hand with infection (Acute) Umbilical hernia (Acute) Hyperbilirubinemia (Acute) Shortness of breath (Acute) Elevated blood pressure reading without diagnosis of hypertension (Acute) Left arm pain (Acute) Ambulatory dysfunction (Acute) Incontinence (Acute) Anorexia (Acute) Headache (Acute) Depression (Chronic) Chest pain (Acute) Foot pain, right (Acute) Tendinitis of left rotator cuff (Acute) Macrocytosis (Acute 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 Leukopenia (Acute) Headache (Acute) Epigastric abdominal pain (Acute) Calcific tendinitis of left shoulder (Acute) Pulmonary mass (Acute) spiculated mass Pneumonia (Acute) Depression with suicidal ideation (Acute) Alcohol abuse (Chronic) Diarrhea (Acute) Epigastric pain (Acute) Dehydration (Acute) Discharge planning issues (Acute) Difficult intravenous access (Acute) Multiple IV attempts, usually requires ultrasound placement. PTSD (post-traumatic stress disorder) (Acute) Anemia (Chronic) Depression (Chronic) Foot pain, right (Acute) T12 compression fracture (Acute) Presacral mass (Chronic) Deviated nasal septum (Acute) Frequent falls (Chronic) Head injury (Acute) Ambulatory dysfunction (Chronic) Shoulder pain, right (Chronic) Suicidal ideation (Acute) Dry eye (Acute) Pruritus (Acute) Dystrophic nail (Acute) AMBER (acute kidney injury) (Acute) Iron deficiency anemia (Chronic) Fall (Acute) Atelectasis of left lung (Chronic) Advance directive on file (Acute) Nodule of upper lobe of right lung (Acute ~09/13/18) 09/13/18 [facility]; 12mm SPICULATED -kb Cataract (Chronic 11/07/15) Hypertension (Chronic) high today; she will check readings at home Hyperlipidemia (Chronic) Back pain, chronic (Chronic) Depression (Chronic) Osteopenia (Chronic) Medical History Adjustment disorder with depressed mood Alcoholic ketosis Anemia Cervical radicular pain neck pain and [facility] 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) pls refrain from alcohol Chronic alcoholism she will not stop drinking unless she checks with me, so that we can help her avert withdrawal I do not think she is capable on her own--she would need placement to achieve required goal of 3 months of sobriety Chronic diarrhea Closed right humeral fracture Corneal ulcer, right (~08/23/18) 08/23/18; UV-kb Fracture of humerus, left, closed Genital herpes simplex recurrent gential; suppressive Valtrex GERD (gastroesophageal reflux disease) GI bleed (12/20/16) Hypertension Hypokalemia Hypokalemia Hypomagnesemia Incidental lung nodule, greater than or equal to 8mm 1cm, spiculated, stable for many years, recommend f/u in 6 mo Multiple rib fractures 03/11/19 [facility] Non-cardiac chest pain (09/21/16) [facility] [place] 09/21/16 NEGATIVE MP Osteoarthritis Palliative care patient (03/21/17) Pancreatitis, alcoholic, acute Peripheral edema Photophobia of right eye Pleural effusion on left 03/11/19 [facility] Presacral mass (~09/15/18) 09/15/18 [facility] Sciatica right, epidural injuections [facility] Tubular adenoma of colon (01/28/17) Urinary incontinence 01/24/13 urethral suspension and sling at [facility] [place] (bladder suspension 1991) 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 Bladder repair. Repair bladder injury, simple S/P laparoscopic cholecystectomy (~05/19/22) Family History Mother No problems noted. Father , DROWNED at age 50. No problems noted. Sister Personal history of malignant neoplasm MELANOMA Sister No problems noted. Grandfather Personal history of malignant neoplasm STOMACH Grandfather Personal history of malignant neoplasm PROSTATE Grandmother Heart disease RI Acute ill-defined cerebrovascular disease Grandmother Personal history of malignant neoplasm UTERINE Aunt , RI Heart disease RI Aunt , RI Heart disease Brother No problems noted. Social History Smoking/Tobacco Use Status: Former Tobacco Use Quit Date: 08/29/80 Smoking risk assessment performed?: Yes Alcohol Intake: current Alcohol Intake frequency: 3 or more drinks per day Alcohol type: hard liquor Drug use: Never Substance use type: does not use Details: Last alcoholic drink Mike zhong, 2 days ago Current gender identity: female Do you feel safe at home: Yes Do you feel safe in your relationship?: No Additional Social history: Has 1 dog, 4 cats. Meds Allergies and Home Medications Allergies Allergy/AdvReac Type Severity Reaction Status Date / Time Penicillins Allergy Mild Rash Verified 01/10/23 15:39 ramipril Allergy Unknown ITCHING Verified 01/10/23 15:39 meperidine [From Demerol] AdvReac Severe Nausea Verified 01/10/23 15:39 bupropion AdvReac Mild GI upset Verified 01/10/23 15:39 AMBER Inhibitors AdvReac Unknown COUGH Verified 01/10/23 15:39 alendronate sodium AdvReac Unknown GI Distress Verified 01/10/23 15:39 clarithromycin AdvReac Unknown intolerant Verified 01/10/23 15:39 paroxetine AdvReac Unknown Diarrhea Verified 01/10/23 15:39 Home Medications Medication Instructions Recorded Confirmed Type carboxymethylcellulose sodium 0.5 1 drp OU Q4H WHILE AWAKE #30 ea 06/20/19 01/10/23 Rx % eye drops in a dropperette (Refresh Plus) lifitegrast 5 % eye drops in a 1 drp ophthalmic (eye) BID 08/05/20 01/10/23 History dropperette (Xiidra) ipratropium 0.5 mg-albuterol 3 mg 3 ml inhalation Q6H PRN 12/25/21 01/10/23 History (2.5 mg base)/3 mL nebulization soln albuterol sulfate 90 mcg/actuation 2 puff inhalation QID PRN 02/08/22 01/10/23 Rx aerosol inhaler (Ventolin HFA) shortness of breath or wheezing #8.5 grams amlodipine 10 mg tablet 10 mg PO DAILY #90 tabs 02/08/22 01/10/23 Rx buspirone 5 mg tablet 5 mg PO BID #60 tabs 02/08/22 01/10/23 Rx folic acid 1 mg tablet 1 mg PO DAILY #90 tabs 02/08/22 01/10/23 Rx melatonin 3 mg capsule 6 mg PO HS #180 caps 02/08/22 01/10/23 Rx metoprolol tartrate 50 mg tablet 50 mg PO DAILY #90 tabs 02/08/22 01/10/23 Rx mirtazapine 7.5 mg tablet 7.5 mg PO QHS #90 tabs 02/08/22 01/10/23 Rx sucralfate 1 gram tablet 1 g PO BID #60 tabs 02/08/22 01/10/23 Rx thiamine HCl (vitamin B1) 100 mg 100 mg PO DAILY #90 tabs 02/08/22 01/10/23 Rx tablet valacyclovir 500 mg tablet 500 mg PO DAILY #90 tabs 02/08/22 01/10/23 Rx (Valtrex) fluticasone propionate 50 2 spray NS daily prn #16 grams 03/06/22 01/10/23 Rx mcg/actuation nasal spray,suspension budesonide 0.5 mg/2 mL suspension 0.5 mg (2 mL) inhalation DAILY #60 05/06/22 01/10/23 Rx for nebulization (Pulmicort) mL pantoprazole 40 mg tablet,delayed 40 mg PO BID@0730,1999 #60 tabs 05/21/22 01/10/23 Rx release cyanocobalamin (vitamin B-12) 500 1,000 mcg PO DAILY #180 tabs 07/10/22 01/10/23 Rx mcg tablet (Vitamin B-12) ferrous sulfate 325 mg (65 mg 325 mg PO BID #180 tabs 07/10/22 01/10/23 Rx iron) tablet multivitamin (Multiple Vitamins 1 tab PO DAILY #90 tabs 07/10/22 01/10/23 Rx tablet) quetiapine 25 mg tablet See Rx Instructions PO BID #60 tabs 07/10/22 01/10/23 Rx spironolactone 50 mg tablet 50 mg PO BID #180 tabs 07/10/22 01/10/23 Rx (Aldactone) venlafaxine 75 mg capsule,extended 75 mg PO DAILY #90 caps 07/10/22 01/10/23 Rx release 24 hr mirabegron 50 mg tablet,extended 50 mg PO DAILY #30 tabs 07/20/22 01/10/23 Rx release 24 hr (Myrbetriq) aspirin 81 mg tablet,delayed 81 mg PO DAILY #90 tabs 08/05/22 01/10/23 Rx release furosemide 20 mg tablet See Rx Instructions PO BID #180 08/11/22 01/10/23 Rx tabs lorazepam 0.5 mg tablet 0.5 mg PO QHS PRN anxiety #20 tabs 12/01/22 01/10/23 Rx ondansetron HCl 4 mg tablet 4 mg PO Q6H PRN nausea and 12/11/22 01/10/23 Rx vomiting #20 tabs Exam Narrative Exam Narrative: 179/81, 113, 36.4, 19, 100% RA. HEENT atraumatic; neck supple; lungs clear; heart tachy/regular; chest no bruising, mild tenderness laterally on right; abdomen +BS, soft, mild tenderness epigastrum, no rebound; rectal deferred; extremities w/o edema; neuro Ox3, slight resting tremor, moves all 4s Results Labs 01/10/23 15:55 01/10/23 15:55 Labs: Laboratory Results - last 24 hr 01/10/23 01/10/23 01/10/23 15:55 15:55 15:55 WBC 5.08 RBC 3.32 L Hgb 11.1 L Hct 33.7 L MCV 102 H MCH 33.4 H MCHC 32.9 RDW 14.8 H Plt Count 166 MPV 8.7 Immature Gran % 0.6 Neutrophils % 89.4 Lymphocytes % 6.3 Monocytes % 3.5 Eosinophils % 0.0 Basophils % 0.2 Nucleated RBC % 0.0 Absolute Neutrophils 4.54 Absolute Lymphocytes 0.32 L Absolute Monocytes 0.18 Absolute Eosinophils 0.00 Absolute Basophils 0.01 PT INR VBG pH VBG pCO2 VBG pO2 VBG HCO3 VBG Total CO2 VBG O2 Saturation VBG Base Excess VBG Lactate 4.3 H* Sodium 140 Potassium 4.1 Chloride 98 Carbon Dioxide 14.1 L Anion Gap 27.9 H BUN 24 H Creatinine 1.2 H Est GFR (CKD-EPI 2020) 46.91 Glucose 187 H Calcium 9.9 Magnesium 1.5 L Total Bilirubin 1.7 H AST 30 ALT 14 Alkaline Phosphatase 242 H Ammonia Troponin I < 50 Total Protein 7.6 Albumin 4.0 Lipase > 375 H Urine Color Urine Clarity Urine pH Ur Specific [place] Urine Protein Urine Ketones Urine Blood Urine Nitrite Urine Bilirubin Urine Urobilinogen Ur Leukocyte Esterase Urine RBC Urine WBC Ur Epithelial Cells Urine Crystals Urine Bacteria Urine Casts Urine Mucus Urine Other Ur Culture Indicated? Urine Glucose Ethyl Alcohol < 3.0 01/10/23 01/10/23 01/10/23 15:55 16:36 16:56 WBC RBC Hgb Hct MCV MCH MCHC RDW Plt Count MPV Immature Gran % Neutrophils % Lymphocytes % Monocytes % Eosinophils % Basophils % Nucleated RBC % Absolute Neutrophils Absolute Lymphocytes Absolute Monocytes Absolute Eosinophils Absolute Basophils PT 11.2 H INR 1.1 VBG pH 7.32 VBG pCO2 29 L VBG pO2 43 VBG HCO3 15 L VBG Total CO2 14 L VBG O2 Saturation 73 VBG Base Excess -11 L VBG Lactate Sodium Potassium Chloride Carbon Dioxide Anion Gap BUN Creatinine Est GFR (CKD-EPI 2020) Glucose Calcium Magnesium Total Bilirubin AST ALT Alkaline Phosphatase Ammonia < 10 L Troponin I Total Protein Albumin Lipase Urine Color Urine Clarity Urine pH Ur Specific [place] Urine Protein Urine Ketones Urine Blood Urine Nitrite Urine Bilirubin Urine Urobilinogen Ur Leukocyte Esterase Urine RBC Urine WBC Ur Epithelial Cells Urine Crystals Urine Bacteria Urine Casts Urine Mucus Urine Other Ur Culture Indicated? Urine Glucose Ethyl Alcohol 01/10/23 01/10/23 01/10/23 17:50 18:58 19:37 WBC RBC Hgb Hct MCV MCH MCHC RDW Plt Count MPV Immature Gran % Neutrophils % Lymphocytes % Monocytes % Eosinophils % Basophils % Nucleated RBC % Absolute Neutrophils Absolute Lymphocytes Absolute Monocytes Absolute Eosinophils Absolute Basophils PT INR VBG pH VBG pCO2 VBG pO2 VBG HCO3 VBG Total CO2 VBG O2 Saturation VBG Base Excess VBG Lactate 3.5 H* Sodium Potassium Chloride Carbon Dioxide Anion Gap BUN Creatinine Est GFR (CKD-EPI 2020) Glucose Calcium Magnesium Total Bilirubin AST ALT Alkaline Phosphatase Ammonia Troponin I < 50 Total Protein Albumin Lipase Urine Color Yellow Urine Clarity Clear Urine pH 5.5 Ur Specific [place] 1.025 Urine Protein 100 H Urine Ketones >=160 H Urine Blood Negative Urine Nitrite Positive H Urine Bilirubin Small H Urine Urobilinogen 0.2 Ur Leukocyte Esterase Negative Urine RBC Negative Urine WBC 0-2 Ur Epithelial Cells Rare Urine Crystals Negative Urine Bacteria Many Urine Casts 0-2 Hyaline Urine Mucus Negative Urine Other Rare Transitional Ur Culture Indicated? Yes Urine Glucose Negative Ethyl Alcohol Last Vital Signs Temp 36.4 C L 01/10/23 15:32 Pulse 113 H 01/10/23 17:31 Resp 19 01/10/23 19:50 BP 179/81 H 01/10/23 17:31 Pulse Ox 100 01/10/23 19:50 Time Spent Time spent with Patient: 40-54 minutes Time was spent: preparing to see the patient(eg.review tests), obtaining and/or reviewing separately otained hiistory, ordering medications,tests, procedures, referring, communicating with other health child care lead teacher and indepentently interpreting results
--- NOTE | 2023-01-10 20:07 | ED.GENADUL_ITS ---
Discharge Plan Disposition Patient Disposition: Admit to [facility] Discharge Details Clinical Impression: High anion gap metabolic acidosis, Acute pancreatitis, Hypomagnesemia, Alcohol withdrawal Primary Care Provider: Lavelle Galindo ED Provider: Monica Yarbrough Home Meds and New Rx's Prescriptions: No Action Xiidra 5 % dropperette 1 drp ophthalmic (eye) BID Rx Instructions: administer approximately 12 hours apart budesonide [Pulmicort] 0.5 mg/2 mL suspension for nebulization 0.5 mg inhalation DAILY Qty: 60 5RF Patient Comments: pt states meds come in blister pack labeled daily by [employer] and she takes them but doesn't know the names furosemide 20 mg tablet See Rx Instructions PO BID Qty: 180 3RF Patient Comments: pt states meds come in blister pack labeled daily by [employer] and she takes them but doesn't know the names Rx Instructions: orally twice a day; 3 tabs (60mg) in AM and 2 tabs(40mg in afternoon; ipratropium-albuterol 0.5 mg-3 mg(2.5 mg base)/3 mL solution for nebulization 3 ml inhalation Q6H PRN Patient Comments: pt states meds come in blister pack labeled daily by [employer] and she takes them but doesn't know the names Myrbetriq 50 mg tablet extended release 24 hr 50 mg PO DAILY Qty: 30 12RF albuterol sulfate [Ventolin HFA] 90 mcg/actuation HFA aerosol inhaler 2 puff inhalation QID PRN (Reason: shortness of breath or wheezing) Qty: 8.5 1RF amlodipine 10 mg tablet 10 mg PO DAILY Qty: 90 3RF Patient Comments: pt states meds come in blister pack labeled daily by [employer] and she takes them but doesn't know the names buspirone 5 mg tablet 5 mg PO BID Qty: 60 5RF Patient Comments: pt states meds come in blister pack labeled daily by [employer] and she takes them but doesn't know the names folic acid 1 mg tablet 1 mg PO DAILY Qty: 90 3RF Patient Comments: pt states meds come in blister pack labeled daily by [employer] and she takes them but doesn't know the names melatonin 3 mg capsule 6 mg PO HS Qty: 180 3RF Patient Comments: pt states meds come in blister pack labeled daily by [employer] and she takes them but doesn't know the names metoprolol tartrate 50 mg tablet 50 mg PO DAILY Qty: 90 3RF Patient Comments: pt states meds come in blister pack labeled daily by [employer] and she takes them but doesn't know the names mirtazapine 7.5 mg tablet 7.5 mg PO QHS Qty: 90 4RF Patient Comments: pt states meds come in blister pack labeled daily by [employer] and she takes them but doesn't know the names sucralfate 1 gram tablet 1 g PO BID Qty: 60 11RF Patient Comments: pt states meds come in blister pack labeled daily by [employer] and she takes them but doesn't know the names thiamine HCl (vitamin B1) 100 mg tablet 100 mg PO DAILY Qty: 90 3RF Patient Comments: pt states meds come in blister pack labeled daily by [employer] and she takes them but doesn't know the names valacyclovir [Valtrex] 500 mg tablet 500 mg PO DAILY Qty: 90 3RF Patient Comments: pt states meds come in blister pack labeled daily by [employer] and she takes them but doesn't know the names Rx Instructions: Take 500 mg BID for 3 days, then take daily fluticasone propionate 50 mcg/actuation spray,suspension 2 spray NS daily prn Qty: 16 5RF Patient Comments: pt states meds come in blister pack labeled daily by [employer] and she takes them but doesn't know the names cyanocobalamin (vitamin B-12) [Vitamin B-12] 500 mcg tablet 1,000 mcg PO DAILY Qty: 180 3RF Patient Comments: pt states meds come in blister pack labeled daily by [employer] and she takes them but doesn't know the names ferrous sulfate 325 mg (65 mg iron) tablet 325 mg PO BID Qty: 180 3RF Patient Comments: pt states meds come in blister pack labeled daily by [employer] and she takes them but doesn't know the names Rx Instructions: do not take within 2 hours of antibiotics multivitamin [Multiple Vitamins] Tablet 1 tab PO DAILY Qty: 90 3RF Patient Comments: pt states meds come in blister pack labeled daily by [employer] and she takes them but doesn't know the names quetiapine 25 mg tablet See Rx Instructions PO BID Qty: 60 5RF Patient Comments: pt states meds come in blister pack labeled daily by [employer] and she takes them but doesn't know the names Rx Instructions: 0.5 tab PO twice a day; spironolactone [Aldactone] 50 mg tablet 50 mg PO BID Qty: 180 3RF Patient Comments: pt states meds come in blister pack labeled daily by [employer] and she takes them but doesn't know the names venlafaxine 75 mg capsule,extended release 24hr 75 mg PO DAILY Qty: 90 3RF Hold Instructions: Home Medication placed on hold at Doctor's office Patient Comments: pt states meds come in blister pack labeled daily by [employer] and she takes them but doesn't know the names. aspirin 81 mg tablet,delayed release (DR/EC) 81 mg PO DAILY Qty: 90 3RF Patient Comments: pt states meds come in blister pack labeled daily by [employer] and she takes them but doesn't know the names lorazepam 0.5 mg tablet 0.5 mg PO QHS PRN (Reason: anxiety) Qty: 20 0RF ondansetron HCl 4 mg tablet 4 mg PO Q6H PRN (Reason: nausea and vomiting) Qty: 20 1RF carboxymethylcellulose sodium [Refresh Plus] 0.5 % Dropperette 1 drp OU Q4H WHILE AWAKE Qty: 30 0RF Patient Comments: pt states meds come in blister pack labeled daily by [employer] and she takes them but doesn't know the names pantoprazole 40 mg Tablet,Delayed Release (Dr/Ec) 40 mg PO BID@ Qty: 60 0RF Patient Comments: pt states meds come in blister pack labeled daily by [employer] and she takes them but doesn't know the names Medical Decision Making 77-year-old female presents with nausea, vomiting, abdominal pain, tremulousness Patient appears to be in mild acute withdrawal, will treat with Ativan Tachycardia, epigastric pain, elevated lipase consistent with pancreatitis, CT abdomen and pelvis shows evidence of acute pancreatitis, she has known masses in the sacral region She also has a mass on her pancreas that will need further evaluation at her discretion C was placed Magnesium is 1.5, will supplement with IV magnesium Received 1.5 L of IV hydration for pancreatitis and dehydration, metabolic acidosis noted, lactic acidosis noted, lactate 4.6, decreased to 3.5 HPI General Date/Time Provider Initiated Documentation: 01/10/23 15:46 . HPI Narrative: This 77-year-old female known to this facility with history of alcoholism, hypertension, asthma, COPD anemia presents with report of weakness, nausea, vomiting, diarrhea. States has been going on for the past several days. States she fell approximately a week and a half ago but was evaluated in was told that she has rib fractures. Denies any current headache, fever, chills. Denies blood in stool or vomitus. States her last drink was on Tuesday. States that she feels quite weak. She denies any chest pain or shortness of breath. Reports epigastric abdominal pain. Denies any illicit drug use. Related Data Home Medications Medication Instructions Recorded Confirmed carboxymethylcellulose sodium 0.5 1 drp OU Q4H WHILE AWAKE #30 ea 06/20/19 01/10/23 % eye drops in a dropperette (Refresh Plus) lifitegrast 5 % eye drops in a 1 drp ophthalmic (eye) BID 08/05/20 01/10/23 dropperette (Xiidra) ipratropium 0.5 mg-albuterol 3 mg 3 ml inhalation Q6H PRN 12/25/21 01/10/23 (2.5 mg base)/3 mL nebulization soln albuterol sulfate 90 mcg/actuation 2 puff inhalation QID PRN 02/08/22 01/10/23 aerosol inhaler (Ventolin HFA) shortness of breath or wheezing #8.5 grams amlodipine 10 mg tablet 10 mg PO DAILY #90 tabs 02/08/22 01/10/23 buspirone 5 mg tablet 5 mg PO BID #60 tabs 02/08/22 01/10/23 folic acid 1 mg tablet 1 mg PO DAILY #90 tabs 02/08/22 01/10/23 melatonin 3 mg capsule 6 mg PO HS #180 caps 02/08/22 01/10/23 metoprolol tartrate 50 mg tablet 50 mg PO DAILY #90 tabs 02/08/22 01/10/23 mirtazapine 7.5 mg tablet 7.5 mg PO QHS #90 tabs 02/08/22 01/10/23 sucralfate 1 gram tablet 1 g PO BID #60 tabs 02/08/22 01/10/23 thiamine HCl (vitamin B1) 100 mg 100 mg PO DAILY #90 tabs 02/08/22 01/10/23 tablet valacyclovir 500 mg tablet 500 mg PO DAILY #90 tabs 02/08/22 01/10/23 (Valtrex) fluticasone propionate 50 2 spray NS daily prn #16 grams 03/06/22 01/10/23 mcg/actuation nasal spray,suspension budesonide 0.5 mg/2 mL suspension 0.5 mg (2 mL) inhalation DAILY #60 05/06/22 01/10/23 for nebulization (Pulmicort) mL pantoprazole 40 mg tablet,delayed 40 mg PO BID@0730,1999 #60 tabs 05/21/22 01/10/23 release cyanocobalamin (vitamin B-12) 500 1,000 mcg PO DAILY #180 tabs 07/10/22 01/10/23 mcg tablet (Vitamin B-12) ferrous sulfate 325 mg (65 mg 325 mg PO BID #180 tabs 07/10/22 01/10/23 iron) tablet multivitamin (Multiple Vitamins 1 tab PO DAILY #90 tabs 07/10/22 01/10/23 tablet) quetiapine 25 mg tablet See Rx Instructions PO BID #60 tabs 07/10/22 01/10/23 spironolactone 50 mg tablet 50 mg PO BID #180 tabs 07/10/22 01/10/23 (Aldactone) venlafaxine 75 mg capsule,extended 75 mg PO DAILY #90 caps 07/10/22 01/10/23 release 24 hr mirabegron 50 mg tablet,extended 50 mg PO DAILY #30 tabs 07/20/22 01/10/23 release 24 hr (Myrbetriq) aspirin 81 mg tablet,delayed 81 mg PO DAILY #90 tabs 08/05/22 01/10/23 release furosemide 20 mg tablet See Rx Instructions PO BID #180 08/11/22 01/10/23 tabs lorazepam 0.5 mg tablet 0.5 mg PO QHS PRN anxiety #20 tabs 12/01/22 01/10/23 ondansetron HCl 4 mg tablet 4 mg PO Q6H PRN nausea and 12/11/22 01/10/23 vomiting #20 tabs Previous Rx's Medication Instructions Recorded carboxymethylcellulose sodium 0.5 1 drp OU Q4H WHILE AWAKE #30 ea 06/20/ % eye drops in a dropperette (Refresh Plus) albuterol sulfate 90 mcg/actuation 2 puff inhalation QID PRN 02/08/22 aerosol inhaler (Ventolin HFA) shortness of breath or wheezing #8.5 grams amlodipine 10 mg tablet 10 mg PO DAILY #90 tabs 02/08/22 buspirone 5 mg tablet 5 mg PO BID #60 tabs 02/08/22 folic acid 1 mg tablet 1 mg PO DAILY #90 tabs 02/08/22 melatonin 3 mg capsule 6 mg PO HS #180 caps 02/08/22 metoprolol tartrate 50 mg tablet 50 mg PO DAILY #90 tabs 02/08/22 mirtazapine 7.5 mg tablet 7.5 mg PO QHS #90 tabs 02/08/22 sucralfate 1 gram tablet 1 g PO BID #60 tabs 02/08/22 thiamine HCl (vitamin B1) 100 mg 100 mg PO DAILY #90 tabs 02/08/22 tablet valacyclovir 500 mg tablet 500 mg PO DAILY #90 tabs 02/08/22 (Valtrex) fluticasone propionate 50 2 spray NS daily prn #16 grams 03/06/22 mcg/actuation nasal spray,suspension budesonide 0.5 mg/2 mL suspension 0.5 mg (2 mL) inhalation DAILY #60 05/06/22 for nebulization (Pulmicort) mL pantoprazole 40 mg tablet,delayed 40 mg PO BID@0730,1999 #60 tabs 05/21/22 release cyanocobalamin (vitamin B-12) 500 1,000 mcg PO DAILY #180 tabs 07/10/22 mcg tablet (Vitamin B-12) ferrous sulfate 325 mg (65 mg 325 mg PO BID #180 tabs 07/10/22 iron) tablet multivitamin (Multiple Vitamins 1 tab PO DAILY #90 tabs 07/10/22 tablet) quetiapine 25 mg tablet See Rx Instructions PO BID #60 tabs 07/10/22 spironolactone 50 mg tablet 50 mg PO BID #180 tabs 07/10/22 (Aldactone) venlafaxine 75 mg capsule,extended 75 mg PO DAILY #90 caps 07/10/22 release 24 hr mirabegron 50 mg tablet,extended 50 mg PO DAILY #30 tabs 07/20/22 release 24 hr (Myrbetriq) aspirin 81 mg tablet,delayed 81 mg PO DAILY #90 tabs 08/05/22 release furosemide 20 mg tablet See Rx Instructions PO BID #180 08/11/22 tabs lorazepam 0.5 mg tablet 0.5 mg PO QHS PRN anxiety #20 tabs 12/01/22 ondansetron HCl 4 mg tablet 4 mg PO Q6H PRN nausea and 12/11/22 vomiting #20 tabs Allergies Allergy/AdvReac Type Severity Reaction Status Date / Time Penicillins Allergy Mild Rash Verified 01/10/23 15:39 ramipril Allergy Unknown ITCHING Verified 01/10/23 15:39 meperidine [From Demerol] AdvReac Severe Nausea Verified 01/10/23 15:39 bupropion AdvReac Mild GI upset Verified 01/10/23 15:39 AMBER Inhibitors AdvReac Unknown COUGH Verified 01/10/23 15:39 alendronate sodium AdvReac Unknown GI Distress Verified 01/10/23 15:39 clarithromycin AdvReac Unknown intolerant Verified 01/10/23 15:39 paroxetine AdvReac Unknown Diarrhea Verified 01/10/23 15:39 General Stated Complaint: Abd Prob JORDAN: 3 PFSH All Active Problems (Updated 01/10/23 @ 20:44 by CELINA Snow) Alcohol withdrawal (Acute) Acute pancreatitis (Acute) Hypomagnesemia (Acute) Breast nodule (Acute) Dehydration (Acute) Nausea and vomiting (Acute) Contusion of hip (Acute) Sleep disturbance (Acute) Sinus tachycardia (Acute) High anion gap metabolic acidosis (Acute) Elevated blood pressure reading with diagnosis of hypertension (Acute) Pincer nail deformity (Acute) Insomnia (Acute) Thrombocytopenia (Chronic) Elevated bilirubin (Acute) Mixed stress and urge urinary incontinence (Acute) Thyroid nodule (Acute) Anxiety (Chronic) Adverse effect of metronidazole (Acute) Medication monitoring encounter (Acute) Advance care planning (Acute) Cirrhosis of liver with ascites (Acute) Animal bite of right hand with infection (Acute) Umbilical hernia (Acute) Hyperbilirubinemia (Acute) Shortness of breath (Acute) Elevated blood pressure reading without diagnosis of hypertension (Acute) Left arm pain (Acute) Ambulatory dysfunction (Acute) Incontinence (Acute) Anorexia (Acute) Headache (Acute) Depression (Chronic) Chest pain (Acute) Foot pain, right (Acute) Tendinitis of left rotator cuff (Acute) Macrocytosis (Acute 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 Leukopenia (Acute) Headache (Acute) Epigastric abdominal pain (Acute) Calcific tendinitis of left shoulder (Acute) Pulmonary mass (Acute) spiculated mass Pneumonia (Acute) Depression with suicidal ideation (Acute) Alcohol abuse (Chronic) Diarrhea (Acute) Epigastric pain (Acute) Dehydration (Acute) Discharge planning issues (Acute) Difficult intravenous access (Acute) Multiple IV attempts, usually requires ultrasound placement. PTSD (post-traumatic stress disorder) (Acute) Anemia (Chronic) Depression (Chronic) Foot pain, right (Acute) T12 compression fracture (Acute) Presacral mass (Chronic) Deviated nasal septum (Acute) Frequent falls (Chronic) Head injury (Acute) Ambulatory dysfunction (Chronic) Shoulder pain, right (Chronic) Suicidal ideation (Acute) Dry eye (Acute) Pruritus (Acute) Dystrophic nail (Acute) AMBER (acute kidney injury) (Acute) Iron deficiency anemia (Chronic) Fall (Acute) Atelectasis of left lung (Chronic) Advance directive on file (Acute) Nodule of upper lobe of right lung (Acute ~09/13/18) 09/13/18 [facility]; 12mm SPICULATED -kb Cataract (Chronic 11/07/15) Hypertension (Chronic) high today; she will check readings at home Hyperlipidemia (Chronic) Back pain, chronic (Chronic) Depression (Chronic) Osteopenia (Chronic) Medical History Adjustment disorder with depressed mood Alcoholic ketosis Anemia Cervical radicular pain neck pain and [facility] 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) pls refrain from alcohol Chronic alcoholism she will not stop drinking unless she checks with me, so that we can help her avert withdrawal I do not think she is capable on her own--she would need placement to achieve required goal of 3 months of sobriety Chronic diarrhea Closed right humeral fracture Corneal ulcer, right (~08/23/18) 08/23/18; [facility] Fracture of humerus, left, closed Genital herpes simplex recurrent gential; suppressive Valtrex GERD (gastroesophageal reflux disease) GI bleed (12/20/16) Hypertension Hypokalemia Hypokalemia Hypomagnesemia Incidental lung nodule, greater than or equal to 8mm 1cm, spiculated, stable for many years, recommend f/u in 6 mo Multiple rib fractures 03/11/19 [facility] Non-cardiac chest pain (09/21/16) [facility]16 NEGATIVE MP Osteoarthritis Palliative care patient (03/21/17) Pancreatitis, alcoholic, acute Peripheral edema Photophobia of right eye Pleural effusion on left 03/11/19 [facility] Presacral mass (~09/15/18) 09/15/18 [email or web address] Sciatica right, epidural injuections [facility] Tubular adenoma of colon (01/28/17) Urinary incontinence 01/24/13 urethral suspension and sling at [facility] [place] (bladder suspension 1991) 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 Bladder repair. Repair bladder injury, simple S/P laparoscopic cholecystectomy (~05/19/22) Family History Mother No problems noted. Father , DROWNED at age 50. No problems noted. Sister Personal history of malignant neoplasm MELANOMA Sister No problems noted. Grandfather Personal history of malignant neoplasm STOMACH Grandfather Personal history of malignant neoplasm PROSTATE Grandmother Heart disease LA Acute ill-defined cerebrovascular disease Grandmother Personal history of malignant neoplasm UTERINE Aunt , LA Heart disease LA Aunt , LA Heart disease Brother No problems noted. Social History Smoking/Tobacco Use Status: Former Tobacco Use Quit Date: 08/29/80 Smoking risk assessment performed?: Yes Alcohol Intake: current Alcohol Intake frequency: 3 or more drinks per day Alcohol type: hard liquor Drug use: Never Substance use type: does not use Details: Last alcoholic drink Mike zhong, 2 days ago Current gender identity: female Do you feel safe at home: Yes Do you feel safe in your relationship?: No Additional Social history: Has 1 dog, 4 cats. Exam Const General: cooperative and ill appearing Orientation: alert and oriented x3 HENMT Other: Dry mucous membranes Eyes Pupils: PERRL Resp Effort & Inspection: normal respiratory effort Auscultation: clear to auscultation bilaterally Cardio Rate: tachycardic Rhythm: regular rhythm GI Other: diffuse tenderness Skin General skin exam: no rashes or lesions noted Neuro General: patient alert and patient oriented x3 Course Vital Signs Vital signs: Vital Signs Temperature 36.4 C L 01/10/23 15:32 Pulse 116 H 01/10/23 15:32 Respiratory Rate 20 01/10/23 15:32 Blood Pressure 192/95 H 01/10/23 15:32 Pulse Oximetry 96 01/10/23 15:32 Temperature 36.4 C L 01/10/23 15:32 Temperature Source Oral 01/10/23 15:32 Pulse 113 H 01/10/23 17:31 Pulse 102 H 01/10/23 19:50 Respiratory Rate 19 01/10/23 19:50 Respiratory Effort Normal, Non-Labored 01/10/23 16:05 Blood Pressure 179/81 H 01/10/23 17:31 Blood Pressure Mean 103 01/10/23 17:31 Pulse Oximetry 100 01/10/23 19:50 Pain Level 8 01/10/23 15:32 Lab/Test Results Lab/Test Results: 01/10/23 17:50 Urine - Reflex from Ua Urine Culture - Pending Laboratory Tests Range/Units 01/10/23 01/10/23 01/10/23 15:55 15:55 15:55 WBC (4.4-10.8) 10^3/uL 5.08 RBC (3.93-5.22) 10^6/uL 3.32 L Hgb (11.2-15.7) g/dL 11.1 L Hct (36.0-46.0) % 33.7 L MCV (80-95) fL 102 H MCH (27.0-33.0) pg 33.4 H MCHC (32.0-36.0) % 32.9 RDW (11.7-14.6) % 14.8 H Plt Count (130-400) 10^3/uL 166 MPV (8.0-11.0) fL 8.7 Immature Gran % 0.6 Neutrophils % 89.4 Lymphocytes % 6.3 Monocytes % 3.5 Eosinophils % 0.0 Basophils % 0.2 Nucleated RBC % (0.0-0.3) % 0.0 Absolute Neutrophils (1.2-6.7) 10^3/uL 4.54 Absolute Lymphocytes (1.2-3.4) 10^3/uL 0.32 L Absolute Monocytes (0.1-0.8) 10^3/uL 0.18 Absolute Eosinophils (0.0-0.7) 10^3/uL 0.00 Absolute Basophils (0.0-0.2) 10^3/uL 0.01 PT (9.3-11.0) sec INR (0.9-1.1) VBG pH (7.31-7.41) VBG pCO2 (41-51) mmHg VBG pO2 mmHg VBG HCO3 (23-28) mmol/L VBG Total CO2 (24-29) mmol/L VBG O2 Saturation % VBG Base Excess (-2-3) mmol/L VBG Lactate (0.6-1.4) mmol/L 4.3 H* Sodium (136-145) mmol/L 140 Potassium (3.5-5.1) mmol/L 4.1 Chloride (98-107) mmol/L 98 Carbon Dioxide (21.0-32.0) mmol/L 14.1 L Anion Gap (3-11) mmol/L 27.9 H BUN (7-18) mg/dL 24 H Creatinine (0.55-1.02) mg/dL 1.2 H Est GFR (CKD-EPI 2020) (mL/min/1.73m2) 46.91 Glucose (74-106) mg/dL 187 H Calcium (8.5-10.1) mg/dL 9.9 Magnesium (1.8-2.4) mg/dL 1.5 L Total Bilirubin (0.2-1.0) mg/dL 1.7 H AST (15-37) U/L 30 ALT (14-59) U/L 14 Alkaline Phosphatase (46-116) U/L 242 H Ammonia (11-32) umol/L Troponin I (<or=60) ng/L < 50 Total Protein (6.4-8.2) g/dL 7.6 Albumin (3.4-5.0) g/dL 4.0 Lipase (16-77) U/L > 375 H Urine Color (Yellow) Urine Clarity (Clear) Urine pH (5-8) Ur Specific [place] (1.005-1.025) Urine Protein (Negative) mg/dL Urine Ketones (Negative) mg/dL Urine Blood (Negative) Urine Nitrite (Negative) Urine Bilirubin (Negative) Urine Urobilinogen (Up to 0.2) mg/dL Ur Leukocyte Esterase (Negative) Urine RBC (0-2) HPF Urine WBC (0-5) HPF Ur Epithelial Cells (Negative) HPF Urine Crystals (Negative) HPF Urine Bacteria (Negative) HPF Urine Casts (Negative) LPF Urine Mucus (Negative) Urine Other (Negative) Ur Culture Indicated? Urine Glucose (Negative) mg/dL Ethyl Alcohol (<10) mg/dL < 3.0 Range/Units 01/10/23 01/10/23 01/10/23 15:55 16:36 16:56 WBC (4.4-10.8) 10^3/uL RBC (3.93-5.22) 10^6/uL Hgb (11.2-15.7) g/dL Hct (36.0-46.0) % MCV (80-95) fL MCH (27.0-33.0) pg MCHC (32.0-36.0) % RDW (11.7-14.6) % Plt Count (130-400) 10^3/uL MPV (8.0-11.0) fL Immature Gran % Neutrophils % Lymphocytes % Monocytes % Eosinophils % Basophils % Nucleated RBC % (0.0-0.3) % Absolute Neutrophils (1.2-6.7) 10^3/uL Absolute Lymphocytes (1.2-3.4) 10^3/uL Absolute Monocytes (0.1-0.8) 10^3/uL Absolute Eosinophils (0.0-0.7) 10^3/uL Absolute Basophils (0.0-0.2) 10^3/uL PT (9.3-11.0) sec 11.2 H INR (0.9-1.1) 1.1 VBG pH (7.31-7.41) 7.32 VBG pCO2 (41-51) mmHg 29 L VBG pO2 mmHg 43 VBG HCO3 (23-28) mmol/L 15 L VBG Total CO2 (24-29) mmol/L 14 L VBG O2 Saturation % 73 VBG Base Excess (-2-3) mmol/L -11 L VBG Lactate (0.6-1.4) mmol/L Sodium (136-145) mmol/L Potassium (3.5-5.1) mmol/L Chloride (98-107) mmol/L Carbon Dioxide (21.0-32.0) mmol/L Anion Gap (3-11) mmol/L BUN (7-18) mg/dL Creatinine (0.55-1.02) mg/dL Est GFR (CKD-EPI 2020) (mL/min/1.73m2) Glucose (74-106) mg/dL Calcium (8.5-10.1) mg/dL Magnesium (1.8-2.4) mg/dL Total Bilirubin (0.2-1.0) mg/dL AST (15-37) U/L ALT (14-59) U/L Alkaline Phosphatase (46-116) U/L Ammonia (11-32) umol/L < 10 L Troponin I (<or=60) ng/L Total Protein (6.4-8.2) g/dL Albumin (3.4-5.0) g/dL Lipase (16-77) U/L Urine Color (Yellow) Urine Clarity (Clear) Urine pH (5-8) Ur Specific [place] (1.005-1.025) Urine Protein (Negative) mg/dL Urine Ketones (Negative) mg/dL Urine Blood (Negative) Urine Nitrite (Negative) Urine Bilirubin (Negative) Urine Urobilinogen (Up to 0.2) mg/dL Ur Leukocyte Esterase (Negative) Urine RBC (0-2) HPF Urine WBC (0-5) HPF Ur Epithelial Cells (Negative) HPF Urine Crystals (Negative) HPF Urine Bacteria (Negative) HPF Urine Casts (Negative) LPF Urine Mucus (Negative) Urine Other (Negative) Ur Culture Indicated? Urine Glucose (Negative) mg/dL Ethyl Alcohol (<10) mg/dL Range/Units 01/10/23 01/10/23 01/10/23 17:50 18:58 19:37 WBC (4.4-10.8) 10^3/uL RBC (3.93-5.22) 10^6/uL Hgb (11.2-15.7) g/dL Hct (36.0-46.0) % MCV (80-95) fL MCH (27.0-33.0) pg MCHC (32.0-36.0) % RDW (11.7-14.6) % Plt Count (130-400) 10^3/uL MPV (8.0-11.0) fL Immature Gran % Neutrophils % Lymphocytes % Monocytes % Eosinophils % Basophils % Nucleated RBC % (0.0-0.3) % Absolute Neutrophils (1.2-6.7) 10^3/uL Absolute Lymphocytes (1.2-3.4) 10^3/uL Absolute Monocytes (0.1-0.8) 10^3/uL Absolute Eosinophils (0.0-0.7) 10^3/uL Absolute Basophils (0.0-0.2) 10^3/uL PT (9.3-11.0) sec INR (0.9-1.1) VBG pH (7.31-7.41) VBG pCO2 (41-51) mmHg VBG pO2 mmHg VBG HCO3 (23-28) mmol/L VBG Total CO2 (24-29) mmol/L VBG O2 Saturation % VBG Base Excess (-2-3) mmol/L VBG Lactate (0.6-1.4) mmol/L 3.5 H* Sodium (136-145) mmol/L Potassium (3.5-5.1) mmol/L Chloride (98-107) mmol/L Carbon Dioxide (21.0-32.0) mmol/L Anion Gap (3-11) mmol/L BUN (7-18) mg/dL Creatinine (0.55-1.02) mg/dL Est GFR (CKD-EPI 2020) (mL/min/1.73m2) Glucose (74-106) mg/dL Calcium (8.5-10.1) mg/dL Magnesium (1.8-2.4) mg/dL Total Bilirubin (0.2-1.0) mg/dL AST (15-37) U/L ALT (14-59) U/L Alkaline Phosphatase (46-116) U/L Ammonia (11-32) umol/L Troponin I (<or=60) ng/L < 50 Total Protein (6.4-8.2) g/dL Albumin (3.4-5.0) g/dL Lipase (16-77) U/L Urine Color (Yellow) Yellow Urine Clarity (Clear) Clear Urine pH (5-8) 5.5 Ur Specific [place] (1.005-1.025) 1.025 Urine Protein (Negative) mg/dL 100 H Urine Ketones (Negative) mg/dL >=160 H Urine Blood (Negative) Negative Urine Nitrite (Negative) Positive H Urine Bilirubin (Negative) Small H Urine Urobilinogen (Up to 0.2) mg/dL 0.2 Ur Leukocyte Esterase (Negative) Negative Urine RBC (0-2) HPF Negative Urine WBC (0-5) HPF 0-2 Ur Epithelial Cells (Negative) HPF Rare Urine Crystals (Negative) HPF Negative Urine Bacteria (Negative) HPF Many Urine Casts (Negative) LPF 0-2 Hyaline Urine Mucus (Negative) Negative Urine Other (Negative) Rare Transitional Ur Culture Indicated? Yes Urine Glucose (Negative) mg/dL Negative Ethyl Alcohol (<10) mg/dL Critical Care Time Critical Care Time Critical Care Time: Yes Total Critical Care Time: 45 Attestation: Patient 45 minutes critical care time secondary to acute pancreatitis, metabolic acidosis, alcohol withdrawal, hypomagnesemia with supplementation, WA protocol observation, and admission to the hospital, IV fluid resuscitation, hospitalist discussion and admission
[2023-01-10] MEDS: Melatonin 3 MG TAB 6 MG PO (22:04)
[2023-01-10] MEDS: Mirtazapine 15 MG TAB 7.5 MG PO (22:04)
[2023-01-10] MEDS: Lactated Ringers 1,000 ML 150 ML IV (22:05)
[2023-01-10] MEDS: Pantoprazole 40 MG VIAL IVP (22:07)
[2023-01-11 00:30] VITALS: BP 156/80; PULSE 104; RESP 16; TEMP 36.5; O2SAT 96
[2023-01-11] MEDS: Lactated Ringers 1,000 ML 150 ML IV ×2 (04:30→08:34)
[2023-01-11 05:32] LABS: C Diff PCR Positive (Negative)
[2023-01-11 07:04] LABS: HCT 27.7 % (36.0-46.0); HGB 9.1 g/dL (11.2-15.7); MCH 33.5 pg (27.0-33.0); MCHC 32.9 % (32.0-36.0); MCV 102 fL (80-95); MPV 8.9 fL (8.0-11.0); Platelet Count 103 10^3/uL (130-400); RBC 2.72 10^6/uL (3.93-5.22); RDW 15.1 % (11.7-14.6); RDW-SD 56.8 fL; WBC 2.63 10^3/uL (4.4-10.8)
[2023-01-11 07:19] LABS: Anion Gap 10.7 mmol/L (3-11); BUN 19 mg/dL (7-18); CO2 25.3 mmol/L (21.0-32.0); CREATININE 1.1 mg/dL (0.55-1.02); Calcium 9.2 mg/dL (8.5-10.1); Chloride 107 mmol/L (98-107); Estimated GFR 52.08 (mL/min/1.73m2); Glucose 144 mg/dL (74-106); Magnesium 1.6 mg/dL (1.8-2.4); Potassium 3.6 mmol/L (3.5-5.1); Sodium 143 mmol/L (136-145)
[2023-01-11 07:20] LABS: Lipase > 375 U/L (16-77)
[2023-01-11] MEDS: Budesonide 0.5 MG/2 ML UPD VIAL IH (07:58)
[2023-01-11 08:26] VITALS: BP 153/73; PULSE 116; RESP 18; TEMP 37.4; O2SAT 97
[2023-01-11] MEDS: Mirabegron 50 MG TABCR PO (08:32)
[2023-01-11] MEDS: amLODIPine 10 MG TAB PO (08:32)
[2023-01-11] MEDS: valACYclovir 500 MG TAB PO (08:32)
[2023-01-11] MEDS: QUEtiapine 25 MG TAB 12.5 MG PO ×2 (08:32→20:00)
[2023-01-11] MEDS: Venlafaxine 75 MG CAPCR PO (08:32)
[2023-01-11] MEDS: Metoprolol 50 MG TAB PO (08:32)
[2023-01-11] MEDS: Normal Saline Flush 10 ML SYR IVP ×4 (08:33→21:27)
[2023-01-11] MEDS: metroNIDAZOLE 500 MG/100 ML BAG 100 MG IVPB ×3 (08:33→23:37)
--- NOTE | 2023-01-11 08:43 | INITIAL_ITS ---
Date of service: 01/11/23 Time of Service: 08:43 Care Management Initial Assmt Initial Assessment REASON FOR HOSPITALIZATION:: pancreatitis PREVIOUS FUNCTIONAL STATUS/SOCIAL/FAMILY SUPPORTS:: Leticia lives alone in her home in [place] with her dog and cats. She has a sister who takes care of her animals when she is hospitalized, and a homemaker, Marry, who visits her 3x/week for 2 hrs at a time. Her son Seth is her DPOA, although he lives in [place]. CURRENT FUNCTIONAL STATUS:: Leticia was sitting up in her chair when CM met with her. She stated that she is feeling a little better today, but not at her baseline. Per RN, she has been advanced to clear liquids. She stated that things at home are the same- no changes. CM asked about her ability to walk her dog (as this was a goal of hers from a previous admission) and she stated that she has been too weak to walk outside, as she is worried about falling. CM will ask for a PT consult. CM will continue to follow. ADVANCE DIRECTIVES:: [employer] on file. Son, Seth, listed as agent and DPOA. Has patient been provided with info about the portal/API?: Yes Did the patient sign up for the portal?: Yes CODE STATUS:: DNR/DNI INSURANCE COVERAGE / FINANCIAL ISSUES:: [facility] MCR replacement CURRENT HOME/COMMUNITY SERVICES/EQUIPMENT:: Leticia owns a walker, a cane, and a toilet seat riser. She has a homemaker three days a week for two hours per day, in addition to MOW. PRIMARY CARE PHYSICIAN:: Lavelle Galindo POTENTIAL DISCHARGE NEEDS:: Evaluations for further needs, follow up appointments. PATIENT/FAMILY EDUCATION NEEDS:: Review of discharge instructions regarding medications, activity level, and follow up plan of care, and discussion of Ask Me Three. ANTICIPATED BARRIERS TO DISCHARGE:: None identified. TRANSPORTATION:: Via [facility] private vehicle PLAN:: Leticia will be discharged home when medically cleared by provider. She will follow up with her community providers and plan of care as directed. Leticia will transport home via [facility] private vehicle coordinated by CM. CM will continue to support Leticia and any discharge planning needs. PFSH All Active Problems (Updated 01/11/23 @ 14:11 by Kimmy Sierra NP) DVT prophylaxis (Acute) Hypomagnesemia (Acute) Alcohol abuse (Acute) DVT prophylaxis (Acute) Discharge planning issues (Acute) Multiple rib fractures (Chronic) 03/11/19 [facility] Alcohol withdrawal (Acute) Acute pancreatitis (Acute) Hypomagnesemia (Acute) Breast nodule (Acute) Dehydration (Acute) Nausea and vomiting (Acute) Contusion of hip (Acute) Sleep disturbance (Acute) Sinus tachycardia (Acute) High anion gap metabolic acidosis (Acute) Elevated blood pressure reading with diagnosis of hypertension (Acute) Pincer nail deformity (Acute) Insomnia (Acute) Thrombocytopenia (Chronic) Elevated bilirubin (Acute) Mixed stress and urge urinary incontinence (Acute) Thyroid nodule (Acute) Anxiety (Chronic) Adverse effect of metronidazole (Acute) Medication monitoring encounter (Acute) Advance care planning (Acute) Cirrhosis of liver with ascites (Acute) Animal bite of right hand with infection (Acute) Umbilical hernia (Acute) Hyperbilirubinemia (Acute) Shortness of breath (Acute) Elevated blood pressure reading without diagnosis of hypertension (Acute) Left arm pain (Acute) Ambulatory dysfunction (Acute) Incontinence (Acute) Anorexia (Acute) Headache (Acute) Depression (Chronic) Chest pain (Acute) Foot pain, right (Acute) Tendinitis of left rotator cuff (Acute) Macrocytosis (Acute 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 Leukopenia (Acute) Headache (Acute) Epigastric abdominal pain (Acute) Calcific tendinitis of left shoulder (Acute) Pulmonary mass (Acute) spiculated mass Pneumonia (Acute) Depression with suicidal ideation (Acute) Alcohol abuse (Chronic) Diarrhea (Acute) Epigastric pain (Acute) Dehydration (Acute) Discharge planning issues (Acute) Difficult intravenous access (Acute) Multiple IV attempts, usually requires ultrasound placement. PTSD (post-traumatic stress disorder) (Acute) Anemia (Chronic) Depression (Chronic) Foot pain, right (Acute) T12 compression fracture (Acute) Presacral mass (Chronic) Deviated nasal septum (Acute) Frequent falls (Chronic) Head injury (Acute) Ambulatory dysfunction (Chronic) Shoulder pain, right (Chronic) Suicidal ideation (Acute) Dry eye (Acute) Pruritus (Acute) Dystrophic nail (Acute) AMBER (acute kidney injury) (Acute) Iron deficiency anemia (Chronic) Fall (Acute) Atelectasis of left lung (Chronic) Advance directive on file (Acute) Nodule of upper lobe of right lung (Acute ~09/13/18) 09/13/18 [facility]; 12mm SPICULATED -kb Cataract (Chronic 11/07/15) Hypertension (Chronic) high today; she will check readings at home Hyperlipidemia (Chronic) Back pain, chronic (Chronic) Depression (Chronic) Osteopenia (Chronic) Medical History Adjustment disorder with depressed mood Alcoholic ketosis Anemia Cervical radicular pain neck pain and [facility] 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) pls refrain from alcohol Chronic alcoholism she will not stop drinking unless she checks with me, so that we can help her avert withdrawal I do not think she is capable on her own--she would need placement to achieve required goal of 3 months of sobriety Chronic diarrhea Closed right humeral fracture Corneal ulcer, right (~08/23/18) 08/23/18; [facility] Fracture of humerus, left, closed Genital herpes simplex recurrent gential; suppressive Valtrex GERD (gastroesophageal reflux disease) GI bleed (12/20/16) Hypertension Hypokalemia Hypokalemia Hypomagnesemia Incidental lung nodule, greater than or equal to 8mm 1cm, spiculated, stable for many years, recommend f/u in 6 mo Multiple rib fractures 03/11/19 [facility] Non-cardiac chest pain (09/21/16) [facility] 09/21/16 NEGATIVE MP Osteoarthritis Palliative care patient (03/21/17) Pancreatitis, alcoholic, acute Peripheral edema Photophobia of right eye Pleural effusion on left 03/11/19 [facility] Presacral mass (~09/15/18) 09/15/18 [facility] Sciatica right, epidural injuections [facility] Tubular adenoma of colon (01/28/17) Urinary incontinence 01/24/13 urethral suspension and sling at [facility] (bladder suspension 1991) 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 Bladder repair. Repair bladder injury, simple S/P laparoscopic cholecystectomy (~05/19/22) Family History Mother No problems noted. Father , DROWNED at age 50. No problems noted. Sister Personal history of malignant neoplasm MELANOMA Sister No problems noted. Grandfather Personal history of malignant neoplasm STOMACH Grandfather Personal history of malignant neoplasm PROSTATE Grandmother Heart disease NE Acute ill-defined cerebrovascular disease Grandmother Personal history of malignant neoplasm UTERINE Aunt , NE Heart disease NE Aunt , NE Heart disease Brother No problems noted. Social History Smoking/Tobacco Use Status: Former Tobacco Use Quit Date: 08/29/80 Smoking risk assessment performed?: Yes Alcohol Intake: current Alcohol Intake frequency: 3 or more drinks per day Alcohol type: hard liquor Drug use: Never Substance use type: does not use Details: Last alcoholic drink Mike zhong, 2 days ago Current gender identity: female Do you feel safe at home: Yes Do you feel safe in your relationship?: No Additional Social history: Has 1 dog, 4 cats.
[2023-01-11] MEDS: MORPHine 4 MG/ML SYR IVP ×2 (09:51→19:59)
[2023-01-11] MEDS: MAGNESIUM SULFATE 2 GM/50 ML BAG IVPB (11:00)
--- NOTE | 2023-01-11 11:32 | W.PM.PROGNOT ---
Date of Service Date of service: 01/11/23 Time of Service: 11:32 Assessment and Plan Assessment and plan (1) Acute pancreatitis: Status: Acute Assessment and plan: Alcoholic pancreatitis. reporting improvement in symptoms, ok to advance diet as tolerated continue prn analgesics and antiemetics. drop IV fluids to 100 cc/hr (2) Multiple rib fractures: Status: Chronic Assessment and plan: Rib fractures: incidental as patient is not complaining of pain; no respiratory compromise or c/o. (3) Hypomagnesemia: Status: Acute Assessment and plan: replete and follow (4) Alcohol abuse: Status: Acute Assessment and plan: No history of withdrawal, will stop ciwa scoring No desire to stop drinking daily thiamine (5) DVT prophylaxis: Status: Acute Assessment and plan: teds (6) Discharge planning issues: Status: Acute Assessment and plan: palliative care has seen her in the past, DNR/DNI anticipate discharge to home tomorrow to home when medically stable, resumption HH services. discussed with DR Blake Subjective Subjective Patient reports: still having pain and afebrile; denies tolerating a regular diet or shortness of breath Interval history since last seen: no signs of withdrawal Exam Const General: cooperative and ill appearing Orientation: alert and oriented x3 HENMT Other: Dry mucous membranes Eyes Pupils: PERRL Resp Effort & Inspection: normal respiratory effort Auscultation: clear to auscultation bilaterally Cardio Rate: tachycardic Rhythm: regular rhythm GI Other: diffuse tenderness Skin General skin exam: no rashes or lesions noted Neuro General: patient alert and patient oriented x3 Objective Last Vital Signs Temp 37.4 C 01/11/23 08:26 Pulse 116 H 01/11/23 08:26 Resp 18 01/11/23 08:26 BP 153/73 H 01/11/23 08:26 Pulse Ox 97 01/11/23 08:26 Laboratory Results - last 24 hr 01/10/23 01/10/23 01/10/23 15:55 15:55 15:55 WBC 5.08 RBC 3.32 L Hgb 11.1 L Hct 33.7 L MCV 102 H MCH 33.4 H MCHC 32.9 RDW 14.8 H Plt Count 166 MPV 8.7 Immature Gran % 0.6 Neutrophils % 89.4 Lymphocytes % 6.3 Monocytes % 3.5 Eosinophils % 0.0 Basophils % 0.2 Nucleated RBC % 0.0 Absolute Neutrophils 4.54 Absolute Lymphocytes 0.32 L Absolute Monocytes 0.18 Absolute Eosinophils 0.00 Absolute Basophils 0.01 PT INR VBG pH VBG pCO2 VBG pO2 VBG HCO3 VBG Total CO2 VBG O2 Saturation VBG Base Excess VBG Lactate 4.3 H* Sodium 140 Potassium 4.1 Chloride 98 Carbon Dioxide 14.1 L Anion Gap 27.9 H BUN 24 H Creatinine 1.2 H Est GFR (CKD-EPI 2020) 46.91 Glucose 187 H Calcium 9.9 Magnesium 1.5 L Total Bilirubin 1.7 H AST 30 ALT 14 Alkaline Phosphatase 242 H Ammonia Troponin I < 50 Total Protein 7.6 Albumin 4.0 Lipase > 375 H Urine Color Urine Clarity Urine pH Ur Specific [place] Urine Protein Urine Ketones Urine Blood Urine Nitrite Urine Bilirubin Urine Urobilinogen Ur Leukocyte Esterase Urine RBC Urine WBC Ur Epithelial Cells Urine Crystals Urine Bacteria Urine Casts Urine Mucus Urine Other Ur Culture Indicated? Urine Glucose Stl C.difficile Tox PCR Ethyl Alcohol < 3.0 01/10/23 01/10/23 01/10/23 15:55 16:36 16:56 WBC RBC Hgb Hct MCV MCH MCHC RDW Plt Count MPV Immature Gran % Neutrophils % Lymphocytes % Monocytes % Eosinophils % Basophils % Nucleated RBC % Absolute Neutrophils Absolute Lymphocytes Absolute Monocytes Absolute Eosinophils Absolute Basophils PT 11.2 H INR 1.1 VBG pH 7.32 VBG pCO2 29 L VBG pO2 43 VBG HCO3 15 L VBG Total CO2 14 L VBG O2 Saturation 73 VBG Base Excess -11 L VBG Lactate Sodium Potassium Chloride Carbon Dioxide Anion Gap BUN Creatinine Est GFR (CKD-EPI 2020) Glucose Calcium Magnesium Total Bilirubin AST ALT Alkaline Phosphatase Ammonia < 10 L Troponin I Total Protein Albumin Lipase Urine Color Urine Clarity Urine pH Ur Specific [place] Urine Protein Urine Ketones Urine Blood Urine Nitrite Urine Bilirubin Urine Urobilinogen Ur Leukocyte Esterase Urine RBC Urine WBC Ur Epithelial Cells Urine Crystals Urine Bacteria Urine Casts Urine Mucus Urine Other Ur Culture Indicated? Urine Glucose Stl C.difficile Tox PCR Ethyl Alcohol 01/10/23 01/10/23 01/10/23 17:50 18:58 19:37 WBC RBC Hgb Hct MCV MCH MCHC RDW Plt Count MPV Immature Gran % Neutrophils % Lymphocytes % Monocytes % Eosinophils % Basophils % Nucleated RBC % Absolute Neutrophils Absolute Lymphocytes Absolute Monocytes Absolute Eosinophils Absolute Basophils PT INR VBG pH VBG pCO2 VBG pO2 VBG HCO3 VBG Total CO2 VBG O2 Saturation VBG Base Excess VBG Lactate 3.5 H* Sodium Potassium Chloride Carbon Dioxide Anion Gap BUN Creatinine Est GFR (CKD-EPI 2020) Glucose Calcium Magnesium Total Bilirubin AST ALT Alkaline Phosphatase Ammonia Troponin I < 50 Total Protein Albumin Lipase Urine Color Yellow Urine Clarity Clear Urine pH 5.5 Ur Specific [place] 1.025 Urine Protein 100 H Urine Ketones >=160 H Urine Blood Negative Urine Nitrite Positive H Urine Bilirubin Small H Urine Urobilinogen 0.2 Ur Leukocyte Esterase Negative Urine RBC Negative Urine WBC 0-2 Ur Epithelial Cells Rare Urine Crystals Negative Urine Bacteria Many Urine Casts 0-2 Hyaline Urine Mucus Negative Urine Other Rare Transitional Ur Culture Indicated? Yes Urine Glucose Negative Stl C.difficile Tox PCR Ethyl Alcohol 01/11/23 01/11/23 01/11/23 04:36 05:35 06:00 WBC RBC Hgb Hct MCV MCH MCHC RDW Plt Count MPV Immature Gran % Neutrophils % Lymphocytes % Monocytes % Eosinophils % Basophils % Nucleated RBC % Absolute Neutrophils Absolute Lymphocytes Absolute Monocytes Absolute Eosinophils Absolute Basophils PT INR VBG pH VBG pCO2 VBG pO2 VBG HCO3 VBG Total CO2 VBG O2 Saturation VBG Base Excess VBG Lactate Sodium Cancelled Potassium Cancelled Chloride Cancelled Carbon Dioxide Cancelled Anion Gap Cancelled BUN Cancelled Creatinine Cancelled Est GFR (CKD-EPI 2020) Cancelled Glucose Cancelled Calcium Cancelled Magnesium Cancelled Total Bilirubin AST ALT Alkaline Phosphatase Ammonia Troponin I Total Protein Albumin Lipase Urine Color Urine Clarity Urine pH Ur Specific [place] Urine Protein Urine Ketones Urine Blood Urine Nitrite Urine Bilirubin Urine Urobilinogen Ur Leukocyte Esterase Urine RBC Urine WBC Ur Epithelial Cells Urine Crystals Urine Bacteria Urine Casts Urine Mucus Urine Other Ur Culture Indicated? Urine Glucose Stl C.difficile Tox PCR Positive A Ethyl Alcohol 01/11/23 01/11/23 06:30 06:30 WBC 2.63 L RBC 2.72 L Hgb 9.1 L D Hct 27.7 L MCV 102 H MCH 33.5 H MCHC 32.9 RDW 15.1 H Plt Count 103 L MPV 8.9 Immature Gran % Neutrophils % Lymphocytes % Monocytes % Eosinophils % Basophils % Nucleated RBC % Absolute Neutrophils Absolute Lymphocytes Absolute Monocytes Absolute Eosinophils Absolute Basophils PT INR VBG pH VBG pCO2 VBG pO2 VBG HCO3 VBG Total CO2 VBG O2 Saturation VBG Base Excess VBG Lactate Sodium 143 Potassium 3.6 Chloride 107 Carbon Dioxide 25.3 Anion Gap 10.7 BUN 19 H Creatinine 1.1 H Est GFR (CKD-EPI 2020) 52.08 Glucose 144 H Calcium 9.2 Magnesium 1.6 L Total Bilirubin AST ALT Alkaline Phosphatase Ammonia Troponin I Total Protein Albumin Lipase > 375 H Urine Color Urine Clarity Urine pH Ur Specific [place] Urine Protein Urine Ketones Urine Blood Urine Nitrite Urine Bilirubin Urine Urobilinogen Ur Leukocyte Esterase Urine RBC Urine WBC Ur Epithelial Cells Urine Crystals Urine Bacteria Urine Casts Urine Mucus Urine Other Ur Culture Indicated? Urine Glucose Stl C.difficile Tox PCR Ethyl Alcohol Time Spent with Patient Time Spent with Patient: 25-34 minutes Time was spent: preparing to see the patient(eg.review tests), obtaining and/or reviewing separately [facility] hiistory, ordering medications,tests, procedures, indepentently interpreting results and counseling the patient
[2023-01-11] MEDS: Lactated Ringers 1,000 ML 100 ML IV (14:11)
[2023-01-11 15:42] VITALS: BP 119/71; PULSE 95; RESP 16; TEMP 36.1; O2SAT 95
[2023-01-11] MEDS: Prochlorperazine 10 MG/2 ML VIAL IVP (18:12)
[2023-01-11] MEDS: Pantoprazole 40 MG VIAL IVP (21:27)
[2023-01-11] MEDS: Mirtazapine 15 MG TAB 7.5 MG PO (21:28)
[2023-01-11] MEDS: Melatonin 3 MG TAB 6 MG PO (21:28)
[2023-01-11 23:14] VITALS: BP 100/69; PULSE 89; RESP 18; TEMP 36.1; O2SAT 95
[2023-01-12] MEDS: Lactated Ringers 1,000 ML 100 ML IV ×2 (00:56→11:26)
[2023-01-12 07:26] LABS: Abs Immature Grans 0.01 10^3/uL (0.0-0.06); Absolute Basophil Count 0.01 10^3/uL (0.0-0.2); Absolute Lymphocyte Count 0.49 10^3/uL (1.2-3.4); Absolute Neutrophil Count 0.82 10^3/uL (1.2-6.7); Basophils % 0.7; HCT 25.7 % (36.0-46.0); HGB 8.1 g/dL (11.2-15.7); Immature Grans % 0.7; Lymphocytes % 34.3; MCH 32.7 pg (27.0-33.0); MCHC 31.5 % (32.0-36.0); MCV 104 fL (80-95); MPV 9.6 fL (8.0-11.0); Neutrophils % 57.3; Platelet Count 84 10^3/uL (130-400); RBC 2.48 10^6/uL (3.93-5.22); RDW 14.7 % (11.7-14.6)
[2023-01-12 07:50] LABS: Diff Comment Diff Reviewed; RBC Morphology Normal
[2023-01-12] MEDS: Budesonide 0.5 MG/2 ML UPD VIAL IH (07:51)
[2023-01-12 07:52] LABS: WBC 1.43 10^3/uL (4.4-10.8)
[2023-01-12 08:04] LABS: ALT 10 U/L (14-59); AST 16 U/L (15-37); Albumin 2.8 g/dL (3.4-5.0); Alkaline Phosphatase 155 U/L (46-116); Anion Gap 7.3 mmol/L (3-11); BUN 12 mg/dL (7-18); Bilirubin, Total 0.7 mg/dL (0.2-1.0); CO2 27.7 mmol/L (21.0-32.0); Calcium 9.1 mg/dL (8.5-10.1); Chloride 103 mmol/L (98-107); Estimated GFR 58.39 (mL/min/1.73m2); Glucose 108 mg/dL (74-106); Sodium 138 mmol/L (136-145); Total Protein 5.5 g/dL (6.4-8.2)
[2023-01-12 08:05] VITALS: BP 137/70; PULSE 91; RESP 18; TEMP 36.2; O2SAT 98
[2023-01-12 08:10] LABS: Potassium 2.5 mmol/L (3.5-5.1)
[2023-01-12 08:39] LABS: Lab Add On Test DONE
[2023-01-12 08:49] LABS: Magnesium 1.8 mg/dL (1.8-2.4)
[2023-01-12] MEDS: metroNIDAZOLE 500 MG/100 ML BAG 100 MG IVPB ×2 (08:57→16:28)
[2023-01-12] MEDS: QUEtiapine 25 MG TAB 12.5 MG PO ×2 (08:58→21:03)
[2023-01-12] MEDS: POTASSIUM CHLORIDE 10 MEQ/100 ML BAG 100 MEQ IVPB ×4 (08:58→13:36)
[2023-01-12] MEDS: Mirabegron 50 MG TABCR PO (08:58)
[2023-01-12] MEDS: Thiamine 100 MG TAB PO (08:58)
[2023-01-12] MEDS: Metoprolol 50 MG TAB PO (08:58)
[2023-01-12] MEDS: valACYclovir 500 MG TAB PO (08:58)
[2023-01-12] MEDS: Venlafaxine 75 MG CAPCR PO (08:59)
[2023-01-12] MEDS: amLODIPine 10 MG TAB PO (08:59)
[2023-01-12] MEDS: Potassium Chloride Liquid 20 MEQ PKT PO ×2 (09:19→16:27)
[2023-01-12] MEDS: Acetaminophen 325 MG TAB 650 MG PO (11:31)
--- NOTE | 2023-01-12 13:04 | PDOC.CMPRO ---
Date of service: 01/12/23 Time of Service: 13:04 Care Management Progress Note Progress Note Text Progress Note Text: S/O: Leticia was sitting up in her chair eating lunch when CM checked in on her. Her diet was advanced today, so she is no longer on clear liquids. Per report, her WBC is 1.43 today. She has a PT consult, and a palliative consult was placed today. CM will continue to follow. A: Leticia is a 77 year old female admitted to [facility] on 01/10/23 for pancreatitis. P: Anticipate Leticia will return home when medically cleared. CM will coordinate [facility] transport, private vehicle. She will follow up with her PCP and discharge plan of care. CM will continue to follow.
[2023-01-12 13:10] LABS: Campylobacter PCR Negative (Negative); Salmonella PCR Negative (Negative); Shiga Toxin PCR Negative (Negative); Shigella/Enteroinvasive Ecoli Negative (Negative)
--- NOTE | 2023-01-12 13:27 | W.PM.PROGNOT ---
Date of Service Date of service: 01/12/23 Time of Service: 13:27 Assessment and Plan Assessment and plan (1) Diarrhea: Status: Acute Assessment and plan: will check stool for cdiff imodium prn (2) Hypokalemia: Status: Acute Assessment and plan: d/t #1 replete and follow. mag ok (3) Acute pancreatitis: Status: Resolved Assessment and plan: Alcoholic pancreatitis. reporting resolution of symptoms, tolerating advanced diet stop IV fluids (4) Multiple rib fractures: Status: Chronic Assessment and plan: Rib fractures: incidental as patient is not complaining of pain; no respiratory compromise or c/o. (5) Hypomagnesemia: Status: Resolved Assessment and plan: replete and follow (6) Alcohol abuse: Status: Chronic Assessment and plan: No history of withdrawal, will stop ciwa scoring No desire to stop drinking daily thiamine (7) DVT prophylaxis: Status: Acute Assessment and plan: teds (8) Discharge planning issues: Status: Acute Assessment and plan: palliative care has seen her in the past, DNR/DNI anticipate discharge to home tomorrow to home when medically stable, resumption services. discussed with DR Blake Subjective Subjective Patient reports: feels better, pain is less, tolerating liquids well, tolerating a regular diet, diarrhea and afebrile; denies blood in stool, nausea or vomiting Exam Narrative Exam Narrative: sitting up in chair, well appearing today Const General: cooperative, comfortable and no acute distress Nutritional Appearance: average body habitus Orientation: alert, awake and oriented x3 HENMT Head: normal to inspection, normocephalic and atraumatic Face and sinus: normal facial exam Eyes Pupils: PERRL Chest Chest: normal inspection of the chest Resp Effort & Inspection: normal respiratory effort Auscultation: clear to auscultation bilaterally Cardio Rate: regular rate Rhythm: regular rhythm Skin General skin exam: no rashes or lesions noted Neuro General: patient alert and patient oriented x3 Objective Last Vital Signs Temp 36.2 C L 01/12/23 08:05 Pulse 91 H 01/12/23 08:05 Resp 18 01/12/23 08:05 BP 137/70 01/12/23 08:05 Pulse Ox 98 01/12/23 08:05 Laboratory Results - last 24 hr 01/11/23 01/12/23 01/12/23 04:36 06:23 06:23 WBC 1.43 L* RBC 2.48 L Hgb 8.1 L Hct 25.7 L MCV 104 H MCH 32.7 MCHC 31.5 L RDW 14.7 H Plt Count 84 L MPV 9.6 Immature Gran % 0.7 Neutrophils % 57.3 Lymphocytes % 34.3 Monocytes % 7.0 Eosinophils % 0.0 Basophils % 0.7 Nucleated RBC % 0.0 Absolute Neutrophils 0.82 L Absolute Lymphocytes 0.49 L Absolute Monocytes 0.10 Absolute Eosinophils 0.00 Absolute Basophils 0.01 RBC Morphology Normal Sodium 138 Potassium 2.5 L* D Chloride 103 Carbon Dioxide 27.7 Anion Gap 7.3 BUN 12 Creatinine 1.0 Est GFR (CKD-EPI 2020) 58.39 Glucose 108 H Calcium 9.1 Magnesium Total Bilirubin 0.7 AST 16 ALT 10 L Alkaline Phosphatase 155 H Total Protein 5.5 L Albumin 2.8 L Stool Campylobacter PCR Negative Stool Salmonella PCR Negative Stool Shigella PCR Negative Shiga Toxin (PCR) Negative Add-On Test Request 01/12/23 01/12/23 06:23 06:52 WBC RBC Hgb Hct MCV MCH MCHC RDW Plt Count MPV Immature Gran % Neutrophils % Lymphocytes % Monocytes % Eosinophils % Basophils % Nucleated RBC % Absolute Neutrophils Absolute Lymphocytes Absolute Monocytes Absolute Eosinophils Absolute Basophils RBC Morphology Sodium Potassium Chloride Carbon Dioxide Anion Gap BUN Creatinine Est GFR (CKD-EPI 2020) Glucose Calcium Magnesium 1.8 Total Bilirubin AST ALT Alkaline Phosphatase Total Protein Albumin Stool Campylobacter PCR Stool Salmonella PCR Stool Shigella PCR Shiga Toxin (PCR) Add-On Test Request DONE Time Spent with Patient Time Spent with Patient: 25-34 minutes Time was spent: preparing to see the patient(eg.review tests), obtaining and/or reviewing separately otained hiistory, ordering medications,tests, procedures, indepentently interpreting results and counseling the patient
[2023-01-12 15:08] VITALS: BP 90/61; PULSE 74; RESP 18; TEMP 36.5; O2SAT 96
--- NOTE | 2023-01-12 15:54 | CHAPLAIN ---
Leticia was resting in bed when I visited. We know each other from her previous admissions. Leticia said she will likely go home tomorrow. Her sister is caring for her dog and three cats, as usual. Today Leticia shared about personal losses in her life, good friends and a sister, and her first dog. She also talked about her first job working for the [employer]. She stayed there for 37 years. 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
[2023-01-12] MEDS: Loperamide 2 MG CAP PO (16:28)
[2023-01-12] MEDS: Pantoprazole 40 MG TABCR PO (16:31)
--- NOTE | 2023-01-12 18:26 | PT.INIE ---
Date of service: 01/12/23 Time of Service: 03:25 PT Notes Visit Reasons: Pancreatitis Inpatient Physical Therapy Evaluation Date: 01/12/2023 Referring Doctor:?Kimmy Sierra,? CASSANDRA DEVELOPER PT Orders: PT CONSULT:Eval/Treat. Precautions: Standard. Frequent falls.? Activity as tolerated. Patient Profile/Admitting Diagnosis:? Leticia is a 77-year-old female who presented to the ED on 01/10/2023 due to nausea, vomitting, and abdominal pain. ? Patient is admitted to [facility] for management of acute pancreatitis, multiple rib fractures, hypomagnesemia, and EtOH abuse. PMHX: All Active Problems? DVT prophylaxis (Acute) Discharge planning issues (Acute) Nausea and vomiting (Acute) Hypomagnesemia (Acute) Nausea and vomiting (Acute) Sinus tachycardia (Acute) High anion gap metabolic acidosis (Acute) Elevated blood pressure reading with diagnosis of hypertension (Acute) Pincer nail deformity (Acute) Insomnia (Acute) Thrombocytopenia (Chronic) Elevated bilirubin (Acute) Mixed stress and urge urinary incontinence (Acute) Thyroid nodule (Acute) Anxiety (Chronic) Adverse effect of metronidazole (Acute) Medication monitoring encounter (Acute) Advance care planning (Acute) Cirrhosis of liver with ascites (Acute) Animal bite of right hand with infection (Acute) Umbilical hernia (Acute) Hyperbilirubinemia (Acute) Shortness of breath (Acute) Elevated blood pressure reading without diagnosis of hypertension (Acute) Left arm pain (Acute) Ambulatory dysfunction (Acute) Incontinence (Acute) Anorexia (Acute) Headache (Acute) Depression (Chronic) Chest pain (Acute) Foot pain, right (Acute) Tendinitis of left rotator cuff (Acute) Macrocytosis (Acute 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 Leukopenia (Acute) Headache (Acute) Epigastric abdominal pain (Acute) Calcific tendinitis of left shoulder (Acute) Pulmonary mass (Acute) spiculated mass Pneumonia (Acute) Depression with suicidal ideation (Acute) Alcohol abuse (Chronic) Diarrhea (Acute) Epigastric pain (Acute) Dehydration (Acute) Hypokalemia (Acute) Discharge planning issues (Acute) Palliative care patient (Acute) Difficult intravenous access (Acute) Multiple IV attempts, usually requires ultrasound placement. PTSD (post-traumatic stress disorder) (Acute) Anemia (Chronic) Depression (Chronic) Foot pain, right (Acute) T12 compression fracture (Acute) Presacral mass (Chronic) Deviated nasal septum (Acute) Frequent falls (Chronic) Head injury (Acute) Ambulatory dysfunction (Chronic) Shoulder pain, right (Chronic) Suicidal ideation (Acute) Dry eye (Acute) Pruritus (Acute) Dystrophic nail (Acute) AMBER (acute kidney injury) (Acute) Iron deficiency anemia (Chronic) Alcohol abuse (Chronic) Fall (Acute) Atelectasis of left lung (Chronic) Advance directive on file (Acute) Nodule of upper lobe of right lung (Acute ~09/13/18) 09/13/18 [facility]; 12mm SPICULATED -kb Cataract (Chronic 11/07/15) Hypertension (Chronic) high today; she will check readings at home Hyperlipidemia (Chronic) Back pain, chronic (Chronic) Depression (Chronic) Osteopenia (Chronic) Medical History? Adjustment disorder with depressed mood Alcoholic ketosis Anemia Cervical radicular pain neck pain and [facility]D [facility] 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) pls refrain from alcohol Chronic alcoholism she will not stop drinking unless she checks with me, so that we can help her avert withdrawal I do not think she is capable on her own--she would need placement to achieve required goal of 3 months of sobrietyChronic diarrhea Closed right humeral fracture Corneal ulcer, right (~08/23/18) 08/23/18; [facility]-kbFracture of humerus, left, closed Genital herpes simplex recurrent gential; suppressive Valtrex GERD (gastroesophageal reflux disease) GI bleed (12/20/16) Hypertension Hypokalemia Hypomagnesemia Incidental lung nodule, greater than or equal to 8mm 1cm, spiculated, stable for many years, recommend f/u in 6 moMultiple rib fractures [facility]11[facility] [place] NEGATIVE MP Osteoarthritis Palliative care patient (03/21/17) Pancreatitis, alcoholic, acute Peripheral edema Photophobia of right eye Pleural effusion on left 03/11/19 [facility] MCPresacral mass (~09/15/18) 09/15/18 [facility] right, epidural injuections [facility] Tubular adenoma of colon (01/28/17) Urinary incontinence 01/24[place] [facility] [place] 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 Colonoscopy - MAC (01/28/17) EGD - MAC (12/20/16) History of bilateral ligation of fallopian tubes History of Surgical Procedure a. Bladder repair. Repair bladder injury, simple S/P laparoscopic cholecystectomy (~05/19/22) Social History/Home Situation: Leticia lives in a private home in [place], [place]. ? She has a caregiver who comes in three times per week for 2 hours each time to assist with laundry, minor house chores, and grocery shopping.? Patient is independent with ADLs using a front-wheeled walker. She receives meals on wheels. She no longer drives.? Sister lives 2 miles away and helps minimally,? she is taking care of the patient's cat right now. Equipment Owned/DME: 3WW, FWW, SC, grab bars, emergency alert device Subjective: Agreable to getting out of bed and doing a short walk. Objective: General Observation:?Supine in bed.? Appears fatigued but agreed to participation with encouragement. Mental Status: Alert and oriented. Aware of where she is. Unclear about time and date. Pain:pain in R side of chest at sites of rib fractures ROM: Right Upper Extremity: ? Shoulder Flexion allows up to 90 degrees. Shoulder abduction allows up to 70 degrees. Elbow flexion WFL. Wrist flexion WFL. Functional opening and closing of hand WFL. Left Upper Extremity: ? Shoulder Flexion allows up to 100 degrees. Shoulder abduction allows up to 90 degrees. Elbow flexion WFL. Wrist flexion WFL. Functional opening and closing of hand WFL. Right Lower Extremity: Hip flexion allows up to 20 degrees beyond 90 while seated at edge of bed. Hip abduction WFL. Knee flexion 30-90 degrees. Knee extension -30 degrees.? Ankle dorsiflexion WFL. Ankle plantarflexion WFL. Left Lower Extremity: Hip flexion allows up to 20 degrees beyond 90 while seated at edge of bed. Hip abduction WFL. Knee flexion 30-90 degrees. Knee extension -30 degrees.? Ankle dorsiflexion WFL. Ankle plantarflexion WFL. Strength: Right Upper Extremity: Shoulder flexors 3-/5. Shoulder abductors 3-/5. Elbow flexors 4/5. Elbow extensors 4/5. Barrel Charrer strong. Left Upper Extremity: Shoulder flexors 3-/5. Shoulder abductors 3-/5. Elbow flexors 4/5. Elbow extensors 4/5. Barrel Charrer strong. Right Lower Extremity: Hip flexors 3-/5. Hip abductors 4-/5. Knee flexors 3-/5. Knee extensors 3-/5. Ankle dorsiflexors 4-/5. Ankle plantarflexors 4-/5. Left Lower Extremity: Hip flexors 3-/5. Hip abductors 4-/5. Knee flexors 3-/5. Knee extensors 3-/5. Ankle dorsiflexors 4-/5. Ankle plantarflexors 4-/5. Bed Mobility/Transfers: Supine to sit minimal assist with HOB at 40 degrees Sit to stand contact guard assist Stand to sit contact guard assist Bed to chair contact guard assist Gait: Patient exhibited gait for 30 feet requiring contact guard assist from PT using FWW.? Decreased violeta.? Decreased step length and height. No LOB.? Reported fatigue and shortness of breath with activity. Balance: Static Sitting: Good Dynamic Sitting: Fair Static Standing: Fair Dynamic Standing: Fair Special Tests: Mobility Limitations Standardized Measure [facility] 6 clicks Basic Mobility Inpatient Short Form: Raw Score: 18 ? CMS Score: 47% deficit Informed Consent/Education:? Patient was instructed in purpose of PT consult and plan of care. Agreeable to proceed with established PT POC to achieve personal goals. Assessment: Patient presents with clinical signs and symptoms consistent with current/admitting diagnoses that have resulted to mobility limitations, gait instability, generalized weakness, and impairment of motor control as demonstrated by the following impairment level findings: 1.? Decreased strength to B UE/LE major muscle groups 2.? Impaired static and dynamic standing balance Impairments are contributing to the following functional limitations: 2.? Inability to safely ambulate without assistive device 3.? Increase completion time for mobility ADL performance 4.? Increased fall risk Patient is assessed as a 31707 moderate complexity based on the following: History: 75-year-old female with impairment level findings, functional impairments, medical history, and [facility] deficit score of 47% Examination: Demonstrable impairment in strength, balance, and range of motion with underlying impairments and functional limitations as documented above Presentation: Evolving Decision Makin moderate complexity Goals: Goals X1 week 1. Supine-Sit independent 2. Sit-Supine independent 3. Sit-Stand independent 4. Stand-Sit independent 5. Bed-Chair independent 6. Chair-Bed independent 7.? Independent gait on level surface with use of straight cane for at least 100 feet without report of pain nor dyspnea 8.? Independent stair negotiation while holding onto bilateral rails for at least 5 steps without report of pain nor dyspnea 9. Good static and dynamic standing balance/tolerance DISCHARGE RECOMMENDATIONS: [] ? Home with no services [] [X] ? Home with services.? Home when medically cleared by hospitalist.? Patient will benefit from home health PT services in order to progress mobility level using least restrictive assistive ambulatory device, assess home safety, identify additional equipment needs, and establish a functional maintenance program that will increase ability of patient to remain at home. [] ? Home with outpatient PT [] [] ? SNF for continued rehabilitation [] [] ? [employer] [facility] [] [] ? SNF versus LTC based on ability to participate and progress [] TREATMENT CODE/TIME: 11526 x 20 minutes, 06686 x 12 minutes beginning at 15:25 PM. Thank you for the opportunity to participate in the care of this patient. Tawana Cruz PT, DPT, CLT [facility] [place], [place]
[2023-01-12] MEDS: Mirtazapine 15 MG TAB 7.5 MG PO (21:02)
[2023-01-12] MEDS: Melatonin 3 MG TAB 6 MG PO (21:04)
[2023-01-12] MEDS: Normal Saline Flush 10 ML SYR IVP (21:12)
[2023-01-12 23:20] VITALS: BP 122/76; PULSE 81; RESP 18; TEMP 36.8; O2SAT 96
[2023-01-13] MEDS: metroNIDAZOLE 500 MG/100 ML BAG 100 MG IVPB ×2 (00:26→07:56)
[2023-01-13] MEDS: Normal Saline Flush 10 ML SYR IVP ×2 (00:27→09:50)
[2023-01-13 06:22] VITALS: BP 131/73; PULSE 90; RESP 18; TEMP 36.6; O2SAT 98
[2023-01-13] MEDS: Acetaminophen 325 MG TAB 650 MG PO (06:26)
[2023-01-13 06:43] LABS: Abs Immature Grans 0.03 10^3/uL (0.0-0.06); Absolute Basophil Count 0.02 10^3/uL (0.0-0.2); Absolute Lymphocyte Count 0.57 10^3/uL (1.2-3.4); Absolute Neutrophil Count 1.47 10^3/uL (1.2-6.7); Basophils % 0.9; HGB 9.2 g/dL (11.2-15.7); Immature Grans % 1.3; Lymphocytes % 24.9; MCH 33.6 pg (27.0-33.0); MCHC 31.7 % (32.0-36.0); MCV 106 fL (80-95); MPV 9.5 fL (8.0-11.0); Monocytes % 8.7; Neutrophils % 64.2; RBC 2.74 10^6/uL (3.93-5.22); RDW 14.7 % (11.7-14.6); RDW-SD 57.3 fL; WBC 2.29 10^3/uL (4.4-10.8)
[2023-01-13 06:59] LABS: Anion Gap 7.3 mmol/L (3-11); BUN 11 mg/dL (7-18); CO2 23.7 mmol/L (21.0-32.0); CREATININE 0.9 mg/dL (0.55-1.02); Calcium 9.1 mg/dL (8.5-10.1); Chloride 103 mmol/L (98-107); Estimated GFR 66.26 (mL/min/1.73m2); Glucose 139 mg/dL (74-106); Magnesium 1.6 mg/dL (1.8-2.4); Sodium 134 mmol/L (136-145)
[2023-01-13 07:13] LABS: Macrocytosis 1+; Platelet Count 50 10^3/uL (130-400)
[2023-01-13 07:49] VITALS: BP 135/77; PULSE 89; RESP 18; TEMP 36; O2SAT 98
[2023-01-13] MEDS: Pantoprazole 40 MG TABCR PO (07:56)
[2023-01-13] MEDS: amLODIPine 10 MG TAB PO (07:57)
[2023-01-13] MEDS: Metoprolol 50 MG TAB PO (07:57)
[2023-01-13] MEDS: Mirabegron 50 MG TABCR PO (07:57)
[2023-01-13] MEDS: Budesonide 0.5 MG/2 ML UPD VIAL IH (09:25)
[2023-01-13] MEDS: valACYclovir 500 MG TAB PO (09:33)
[2023-01-13] MEDS: Thiamine 100 MG TAB PO (09:33)
[2023-01-13] MEDS: QUEtiapine 25 MG TAB 12.5 MG PO (09:33)
[2023-01-13] MEDS: Venlafaxine 75 MG CAPCR PO (09:34)
[2023-01-13] MEDS: MORPHine 4 MG/ML SYR IVP (09:48)
--- NOTE | 2023-01-13 10:44 | W.PM.DS.N ---
Date of service: 01/13/23 Time of Service: 10:45 DS: Diagnosis Discharge Diagnosis (1) Diarrhea: Status: Acute (2) Hypokalemia: Status: Acute (3) Acute pancreatitis: Status: Resolved (4) Multiple rib fractures: Status: Chronic (5) Hypomagnesemia: Status: Resolved (6) Alcohol abuse: Status: Chronic Discharge Plan Disposition Patient Disposition: Home W/Home Health Services Condition: Stable Discharge Details Reason For Visit: Pancreatitis Admit Date/Time: 01/10/23 20:22 Admit Provider: Saeed Cosme Attending Provider: Saeed Cosme Primary Care Provider: Lavelle Galindo Hospital Course Hospital Course: This is a 77 year old well known to [facility] for frequent visits and hospitalizations, presents with abdominal pain, nausea, vomiting and diarrhea, which is chronic for her and found to have an elevated lipase consistent with history of pancreatitis and positive for cdiff colitis. she was started on flaygl IV, given IV fluids, pain medication and antiemetics. Her symptoms resolved with treatment and her diet was advanced. she remained hemodynamically stable and reambulated. she is stable for discharge and will continue flagyl for 10 more days to complete a 2 week course. she will be referred to home health for ongoing care and evaluation. she is discharged home by RCT with home health. discussed with DR Hayden Kim and New Rx's Prescriptions: New loperamide 2 mg Capsule 2 mg PO Q4H PRN PRNQty: 12 0RF lidocaine 5 % Adhesive Patch,Medicated 2 patch topical Q24H Qty: 30 0RF metronidazole 500 mg tablet 500 mg PO TID Qty: 30 0RF Continued Xiidra 5 % dropperette 1 drp ophthalmic (eye) BID Rx Instructions: administer approximately 12 hours apart budesonide [Pulmicort] 0.5 mg/2 mL suspension for nebulization 0.5 mg inhalation DAILY Qty: 60 5RF Patient Comments: pt states meds come in blister pack labeled daily by [employer] and she takes them but doesn't know the names furosemide 20 mg tablet See Rx Instructions PO BID Qty: 180 3RF Patient Comments: pt states meds come in blister pack labeled daily by [employer] and she takes them but doesn't know the names Rx Instructions: orally twice a day; 3 tabs (60mg) in AM and 2 tabs(40mg in afternoon; ipratropium-albuterol 0.5 mg-3 mg(2.5 mg base)/3 mL solution for nebulization 3 ml inhalation Q6H PRN Patient Comments: pt states meds come in blister pack labeled daily by [employer] and she takes them but doesn't know the names Myrbetriq 50 mg tablet extended release 24 hr 50 mg PO DAILY Qty: 30 12RF albuterol sulfate [Ventolin HFA] 90 mcg/actuation HFA aerosol inhaler 2 puff inhalation QID PRN (Reason: shortness of breath or wheezing) Qty: 8.5 1RF amlodipine 10 mg tablet 10 mg PO DAILY Qty: 90 3RF Patient Comments: pt states meds come in blister pack labeled daily by [employer] and she takes them but doesn't know the names buspirone 5 mg tablet 5 mg PO BID Qty: 60 5RF Patient Comments: pt states meds come in blister pack labeled daily by [employer] and she takes them but doesn't know the names folic acid 1 mg tablet 1 mg PO DAILY Qty: 90 3RF Patient Comments: pt states meds come in blister pack labeled daily by [employer] and she takes them but doesn't know the names melatonin 3 mg capsule 6 mg PO HS Qty: 180 3RF Patient Comments: pt states meds come in blister pack labeled daily by [employer] and she takes them but doesn't know the names metoprolol tartrate 50 mg tablet 50 mg PO DAILY Qty: 90 3RF Patient Comments: pt states meds come in blister pack labeled daily by [employer] and she takes them but doesn't know the names mirtazapine 7.5 mg tablet 7.5 mg PO QHS Qty: 90 4RF Patient Comments: pt states meds come in blister pack labeled daily by [employer] and she takes them but doesn't know the names sucralfate 1 gram tablet 1 g PO BID Qty: 60 11RF Patient Comments: pt states meds come in blister pack labeled daily by [employer] and she takes them but doesn't know the names thiamine HCl (vitamin B1) 100 mg tablet 100 mg PO DAILY Qty: 90 3RF Patient Comments: pt states meds come in blister pack labeled daily by [employer] and she takes them but doesn't know the names valacyclovir [Valtrex] 500 mg tablet 500 mg PO DAILY Qty: 90 3RF Patient Comments: pt states meds come in blister pack labeled daily by [employer] and she takes them but doesn't know the names Rx Instructions: Take 500 mg BID for 3 days, then take daily fluticasone propionate 50 mcg/actuation spray,suspension 2 spray NS daily prn Qty: 16 5RF Patient Comments: pt states meds come in blister pack labeled daily by [employer] and she takes them but doesn't know the names cyanocobalamin (vitamin B-12) [Vitamin B-12] 500 mcg tablet 1,000 mcg PO DAILY Qty: 180 3RF Patient Comments: pt states meds come in blister pack labeled daily by [employer] and she takes them but doesn't know the names ferrous sulfate 325 mg (65 mg iron) tablet 325 mg PO BID Qty: 180 3RF Patient Comments: pt states meds come in blister pack labeled daily by [employer] and she takes them but doesn't know the names Rx Instructions: do not take within 2 hours of antibiotics multivitamin [Multiple Vitamins] Tablet 1 tab PO DAILY Qty: 90 3RF Patient Comments: pt states meds come in blister pack labeled daily by [employer] and she takes them but doesn't know the names quetiapine 25 mg tablet See Rx Instructions PO BID Qty: 60 5RF Patient Comments: pt states meds come in blister pack labeled daily by [employer] and she takes them but doesn't know the names Rx Instructions: 0.5 tab PO twice a day; spironolactone [Aldactone] 50 mg tablet 50 mg PO BID Qty: 180 3RF Patient Comments: pt states meds come in blister pack labeled daily by [employer] and she takes them but doesn't know the names venlafaxine 75 mg capsule,extended release 24hr 75 mg PO DAILY Qty: 90 3RF Hold Instructions: Home Medication placed on hold at Doctor's office Patient Comments: pt states meds come in blister pack labeled daily by [employer] and she takes them but doesn't know the names. aspirin 81 mg tablet,delayed release (DR/EC) 81 mg PO DAILY Qty: 90 3RF Patient Comments: pt states meds come in blister pack labeled daily by [employer] and she takes them but doesn't know the names lorazepam 0.5 mg tablet 0.5 mg PO QHS PRN (Reason: anxiety) Qty: 20 0RF ondansetron HCl 4 mg tablet 4 mg PO Q6H PRN (Reason: nausea and vomiting) Qty: 20 1RF carboxymethylcellulose sodium [Refresh Plus] 0.5 % Dropperette 1 drp OU Q4H WHILE AWAKE Qty: 30 0RF Patient Comments: pt states meds come in blister pack labeled daily by [employer] and she takes them but doesn't know the names pantoprazole 40 mg Tablet,Delayed Release (Dr/Ec) 40 mg PO BID@ Qty: 60 0RF Patient Comments: pt states meds come in blister pack labeled daily by [employer] and she takes them but doesn't know the names Discharge Instructions Instructions: Pancreatitis (DC), Rib Fracture (DC), C. Diff (Clostridioides Difficile) Infection (DC), Fall Prevention (DC) Stand Alone Forms: Nursing Discharge Form Referrals: Lavelle Galindo MD [Primary Care Provider] - 01/19/23 11:20 am () Activity:: Activity as Tolerated Equipment/Supplies:: No Equipment Needed Diet:: As Tolerated Discharge Orders Discharge Orders: Discharge Order (Routine); Ordered 01/13/23 Ordered By: Kimmy Sierra Discharge Data Discharge Date/Time-TO BE ENTERED AT DEPARTURE: 01/13/23 14:08 DS: Summary Time Spent with Patient providing and/or coordinating discharge services: Greater than 30 minutes Status at Discharge Functional status at discharge: independent ambulation Overall status at discharge: patient is progressing back to baseline Mental Status: mental status grossly normal Speech and Movement: speech and movement normal Mood: congruent mood Affect: normal affect Exam Const General: cooperative, comfortable and no acute distress Nutritional Appearance: average body habitus Orientation: alert, awake and oriented x3 HENMT Head: normal to inspection, normocephalic and atraumatic Face and sinus: normal facial exam Eyes Pupils: PERRL Chest Chest: normal inspection of the chest Resp Effort & Inspection: normal respiratory effort Auscultation: clear to auscultation bilaterally Cardio Rate: regular rate Rhythm: regular rhythm Skin General skin exam: no rashes or lesions noted Neuro General: patient alert and patient oriented x3 Psych Mental Status: mental status grossly normal Speech and Movement: speech and movement normal Mood: congruent mood Affect: normal affect DS: Data Vitals/I&O Vitals and I&O: Vital Signs Temperature 36 C L 01/13/23 07:49 Temperature Source Tympanic 01/13/23 07:49 Pulse 89 01/13/23 07:49 Pulse Rhythm Regular 01/13/23 05:32 Pulse 115 H 01/10/23 21:00 Respiratory Rate 18 01/13/23 07:49 Respiratory Effort Non-Labored 01/13/23 05:32 Respiratory Depth Normal 01/13/23 05:32 Respiratory Pattern Normal 01/13/23 05:32 Blood Pressure 135/77 01/13/23 07:49 Blood Pressure Mean 103 01/10/23 17:31 Pulse Oximetry 98 01/13/23 07:49 Oxygen Delivery Method Room Air 01/13/23 07:49 Oxygen Flow Rate 0 01/13/23 07:49 Pain Level 7 01/13/23 10:12 Intake & Output 01/12/23 01/12/23 01/13/23 11:59 23:59 11:59 Intake Total 3770 / 4595 825 / 4595 200 / 200 Balance 3770 / 4595 825 / 4595 200 / 200 Intake: IV 2920 / 3745 825 / 3745 200 / 200 Oral 850 / 850 Other: Urine Color Yellow Comment urine mixed with stool, unable to get acurate amount Stool Size Moderate Small Moderate Stool Characteristics Liquid Soft Soft Black Brown Voiding Methods Bedside Commode Diaper Incontinent Data Completed and Pending Labs on day of discharge: Labs from last 24 hours 01/13/23 01/13/23 01/11/23 06:27 06:27 04:36 WBC 2.29 L RBC 2.74 L Hgb 9.2 L Hct 29.0 L MCV 106 H MCH 33.6 H MCHC 31.7 L RDW 14.7 H Plt Count 50 L MPV 9.5 Immature Gran % 1.3 Neutrophils % 64.2 Lymphocytes % 24.9 Monocytes % 8.7 Eosinophils % 0.0 Basophils % 0.9 Nucleated RBC % 0.0 Absolute Neutrophils 1.47 Absolute Lymphocytes 0.57 L Absolute Monocytes 0.20 Absolute Eosinophils 0.00 Absolute Basophils 0.02 RBC Morphology See Below Macrocytosis 1+ Sodium 134 L Potassium 4.0 D Chloride 103 Carbon Dioxide 23.7 Anion Gap 7.3 BUN 11 Creatinine 0.9 Est GFR (CKD-EPI 2020) 66.26 Glucose 139 H Calcium 9.1 Magnesium 1.6 L Stool Campylobacter PCR Negative Stool Salmonella PCR Negative Stool Shigella PCR Negative Shiga Toxin (PCR) Negative PFSH All Active Problems (Updated 01/12/23 @ 15:52 by Kimmy Sierra NP) Hypokalemia (Acute) DVT prophylaxis (Acute) Alcohol abuse (Chronic) DVT prophylaxis (Acute) Discharge planning issues (Acute) Multiple rib fractures (Chronic) 03/11/19 [facility] Alcohol withdrawal (Acute) Hypomagnesemia (Acute) Breast nodule (Acute) Dehydration (Acute) Nausea and vomiting (Acute) Contusion of hip (Acute) Sleep disturbance (Acute) Sinus tachycardia (Acute) High anion gap metabolic acidosis (Acute) Elevated blood pressure reading with diagnosis of hypertension (Acute) Pincer nail deformity (Acute) Insomnia (Acute) Thrombocytopenia (Chronic) Elevated bilirubin (Acute) Mixed stress and urge urinary incontinence (Acute) Thyroid nodule (Acute) Anxiety (Chronic) Adverse effect of metronidazole (Acute) Medication monitoring encounter (Acute) Advance care planning (Acute) Cirrhosis of liver with ascites (Acute) Animal bite of right hand with infection (Acute) Umbilical hernia (Acute) Hyperbilirubinemia (Acute) Shortness of breath (Acute) Elevated blood pressure reading without diagnosis of hypertension (Acute) Left arm pain (Acute) Ambulatory dysfunction (Acute) Incontinence (Acute) Anorexia (Acute) Headache (Acute) Depression (Chronic) Chest pain (Acute) Foot pain, right (Acute) Tendinitis of left rotator cuff (Acute) Macrocytosis (Acute 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 Leukopenia (Acute) Headache (Acute) Epigastric abdominal pain (Acute) Calcific tendinitis of left shoulder (Acute) Pulmonary mass (Acute) spiculated mass Pneumonia (Acute) Depression with suicidal ideation (Acute) Alcohol abuse (Chronic) Diarrhea (Acute) Epigastric pain (Acute) Dehydration (Acute) Discharge planning issues (Acute) Difficult intravenous access (Acute) Multiple IV attempts, usually requires ultrasound placement. PTSD (post-traumatic stress disorder) (Acute) Anemia (Chronic) Depression (Chronic) Foot pain, right (Acute) T12 compression fracture (Acute) Presacral mass (Chronic) Deviated nasal septum (Acute) Frequent falls (Chronic) Head injury (Acute) Ambulatory dysfunction (Chronic) Shoulder pain, right (Chronic) Suicidal ideation (Acute) Dry eye (Acute) Pruritus (Acute) Dystrophic nail (Acute) AMBER (acute kidney injury) (Acute) Iron deficiency anemia (Chronic) Fall (Acute) Atelectasis of left lung (Chronic) Advance directive on file (Acute) Nodule of upper lobe of right lung (Acute ~09/13/18) 09/13/18 [facility]; 12mm SPICULATED -kb Cataract (Chronic 11/07/15) Hypertension (Chronic) high today; she will check readings at home Hyperlipidemia (Chronic) Back pain, chronic (Chronic) Depression (Chronic) Osteopenia (Chronic) Medical History Adjustment disorder with depressed mood Alcoholic ketosis Anemia Cervical radicular pain neck pain and [facility] 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) pls refrain from alcohol Chronic alcoholism she will not stop drinking unless she checks with me, so that we can help her avert withdrawal I do not think she is capable on her own--she would need placement to achieve required goal of 3 months of sobriety Chronic diarrhea Closed right humeral fracture Corneal ulcer, right (~08/23/18) 08/23/18; [facility] Fracture of humerus, left, closed Genital herpes simplex recurrent gential; suppressive Valtrex GERD (gastroesophageal reflux disease) GI bleed (12/20/16) Hypertension Hypokalemia Hypokalemia Hypomagnesemia Incidental lung nodule, greater than or equal to 8mm 1cm, spiculated, stable for many years, recommend f/u in 6 mo Multiple rib fractures 03/11/19 [facility] Non-cardiac chest pain (09/21/16) [facility] 09/21/16 NEGATIVE MP Osteoarthritis Palliative care patient (03/21/17) Pancreatitis, alcoholic, acute Peripheral edema Photophobia of right eye Pleural effusion on left 03/11/19 [facility] Presacral mass (~09/15/18) 09/15/18 [facility] Sciatica right, epidural injuections [facility] Tubular adenoma of colon (01/28/17) Urinary incontinence 01/24/13 urethral suspension and sling at [facility] (bladder suspension 1991) 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 Bladder repair. Repair bladder injury, simple S/P laparoscopic cholecystectomy (~05/19/22) Family History Mother No problems noted. Father , DROWNED at age 50. No problems noted. Sister Personal history of malignant neoplasm MELANOMA Sister No problems noted. Grandfather Personal history of malignant neoplasm STOMACH Grandfather Personal history of malignant neoplasm PROSTATE Grandmother Heart disease OR Acute ill-defined cerebrovascular disease Grandmother Personal history of malignant neoplasm UTERINE Aunt , OR Heart disease OR Aunt , OR Heart disease Brother No problems noted. Social History Smoking/Tobacco Use Status: Former Tobacco Use Quit Date: 08/29/80 Smoking risk assessment performed?: Yes Alcohol Intake: current Alcohol Intake frequency: 3 or more drinks per day Alcohol type: hard liquor Drug use: Never Substance use type: does not use Details: Last alcoholic drink Mike zhong, 2 days ago Current gender identity: female Do you feel safe at home: Yes Do you feel safe in your relationship?: No Additional Social history: Has 1 dog, 4 cats. Time Spent with Patient Time Spent with Patient: 45-69 minutes Time was spent: preparing to see the patient(eg.review tests), obtaining and/or reviewing separately otained hiistory, ordering medications,tests, procedures, referring, communicating with other health skin care technician, counseling the patient and care coordination
[2023-01-13] MEDS: Lidocaine 5% Patch 2 PATCH TP (10:56)
--- NOTE | 2023-01-13 11:24 | INDS_ITS ---
Date of service: 01/13/23 Time of Service: 10:45 PT Notes Visit Reasons: Pancreatitis Physical Therapy Inpatient Discharge Summary Date: 01/13/2023 Dates of service: 01/12/2023 through 01/13/2023 Referring Doctor:?Kimmy Sierra? RESIDENTIAL LIFE DIRECTOR PT Orders: PT CONSULT:Eval/Treat. Precautions: Standard. Frequent falls.? Activity as tolerated. Patient Profile/Admitting Diagnosis:? Leticia is a 77-year-old female who presented to the ED on 01/10/2023 due to nausea, vomitting, and abdominal pain. ? Patient is admitted to [facility] for management of acute pancreatitis, multiple rib fractures, hypomagnesemia, and EtOH abuse. PMHX: All Active Problems? DVT prophylaxis (Acute) Discharge planning issues (Acute) Nausea and vomiting (Acute) Hypomagnesemia (Acute) Nausea and vomiting (Acute) Sinus tachycardia (Acute) High anion gap metabolic acidosis (Acute) Elevated blood pressure reading with diagnosis of hypertension (Acute) Pincer nail deformity (Acute) Insomnia (Acute) Thrombocytopenia (Chronic) Elevated bilirubin (Acute) Mixed stress and urge urinary incontinence (Acute) Thyroid nodule (Acute) Anxiety (Chronic) Adverse effect of metronidazole (Acute) Medication monitoring encounter (Acute) Advance care planning (Acute) Cirrhosis of liver with ascites (Acute) Animal bite of right hand with infection (Acute) Umbilical hernia (Acute) Hyperbilirubinemia (Acute) Shortness of breath (Acute) Elevated blood pressure reading without diagnosis of hypertension (Acute) Left arm pain (Acute) Ambulatory dysfunction (Acute) Incontinence (Acute) Anorexia (Acute) Headache (Acute) Depression (Chronic) Chest pain (Acute) Foot pain, right (Acute) Tendinitis of left rotator cuff (Acute) Macrocytosis (Acute 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 Leukopenia (Acute) Headache (Acute) Epigastric abdominal pain (Acute) Calcific tendinitis of left shoulder (Acute) Pulmonary mass (Acute) spiculated mass Pneumonia (Acute) Depression with suicidal ideation (Acute) Alcohol abuse (Chronic) Diarrhea (Acute) Epigastric pain (Acute) Dehydration (Acute) Hypokalemia (Acute) Discharge planning issues (Acute) Palliative care patient (Acute) Difficult intravenous access (Acute) Multiple IV attempts, usually requires ultrasound placement. PTSD (post-traumatic stress disorder) (Acute) Anemia (Chronic) Depression (Chronic) Foot pain, right (Acute) T12 compression fracture (Acute) Presacral mass (Chronic) Deviated nasal septum (Acute) Frequent falls (Chronic) Head injury (Acute) Ambulatory dysfunction (Chronic) Shoulder pain, right (Chronic) Suicidal ideation (Acute) Dry eye (Acute) Pruritus (Acute) Dystrophic nail (Acute) AMBER (acute kidney injury) (Acute) Iron deficiency anemia (Chronic) Alcohol abuse (Chronic) Fall (Acute) Atelectasis of left lung (Chronic) Advance directive on file (Acute) Nodule of upper lobe of right lung (Acute ~09/13/18) 09/13/18 [facility]; 12mm SPICULATED -kb Cataract (Chronic 11/07/15) Hypertension (Chronic) high today; she will check readings at home Hyperlipidemia (Chronic) Back pain, chronic (Chronic) Depression (Chronic) Osteopenia (Chronic) Medical History? Adjustment disorder with depressed mood Alcoholic ketosis Anemia Cervical radicular pain neck pain and [facility]D [facility] 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) pls refrain from alcohol Chronic alcoholism she will not stop drinking unless she checks with me, so that we can help her avert withdrawal I do not think she is capable on her own--she would need placement to achieve required goal of 3 months of sobrietyChronic diarrhea Closed right humeral fracture Corneal ulcer, right (~08/23/18) 08/23/18; [facility]-kbFracture of humerus, left, closed Genital herpes simplex recurrent gential; suppressive Valtrex GERD (gastroesophageal reflux disease) GI bleed (12/20/16) Hypertension Hypokalemia Hypomagnesemia Incidental lung nodule, greater than or equal to 8mm 1cm, spiculated, stable for many years, recommend f/u in 6 moMultiple rib fractures [facility]11[facility] 09/21/16 NEGATIVE MP Osteoarthritis Palliative care patient (03/21/17) Pancreatitis, alcoholic, acute Peripheral edema Photophobia of right eye Pleural effusion on left 03/11/19 [facility] MCPresacral mass (~09/15/18) 09/15/18 [facility], epidural injuections [facility] Tubular adenoma of colon (01/28/17) Urinary incontinence 01/24/13 urethral suspension and sling at [facility] (bladder suspension 1991) 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 Colonoscopy - MAC (01/28/17) EGD - MAC (12/20/16) History of bilateral ligation of fallopian tubes History of Surgical Procedure a. Bladder repair. Repair bladder injury, simple S/P laparoscopic cholecystectomy (~05/19/22) Social History/Home Situation: Leticia lives in a private home in [place], [place]. ? She has a caregiver who comes in three times per week for 2 hours each time to assist with laundry, minor house chores, and grocery shopping.? Patient is independent with ADLs using a front-wheeled walker. She receives meals on wheels. She no longer drives.? Sister lives 2 miles away and helps minimally,? she is taking care of the patient's cat right now. Equipment Owned/DME: 3WW, FWW, SC, grab bars, emergency alert device Subjective: Agreeable to session. All dressed up to go home. Objective: General Observation:?Supine in bed.? Mental Status: Alert and oriented. Aware of where she is. Unclear about time and date. Pain: Minimal pain in R side of chest at sites of rib fractures ROM: Right Upper Extremity: ? Shoulder Flexion allows up to 90 degrees. Shoulder abduction allows up to 70 degrees. Elbow flexion WFL. Wrist flexion WFL. Functional opening and closing of hand WFL. Left Upper Extremity: ? Shoulder Flexion allows up to 100 degrees. Shoulder abduction allows up to 90 degrees. Elbow flexion WFL. Wrist flexion WFL. Functional opening and closing of hand WFL. Right Lower Extremity: Hip flexion allows up to 20 degrees beyond 90 while seated at edge of bed. Hip abduction WFL. Knee flexion 30-90 degrees. Knee extension -30 degrees.? Ankle dorsiflexion WFL. Ankle plantarflexion WFL. Left Lower Extremity: Hip flexion allows up to 20 degrees beyond 90 while seated at edge of bed. Hip abduction WFL. Knee flexion 30-90 degrees. Knee extension - 30 degrees.? Ankle dorsiflexion WFL. Ankle plantarflexion WFL. Strength: Right Upper Extremity: Shoulder flexors 3-/5. Shoulder abductors 3-/5. Elbow flexors 4/5. Elbow extensors 4/5. Life Sciences Teacher strong. Left Upper Extremity: Shoulder flexors 3-/5. Shoulder abductors 3-/5. Elbow flexors 4/5. Elbow extensors 4/5. Life Sciences Teacher strong. Right Lower Extremity: Hip flexors 3-/5. Hip abductors 4-/5. Knee flexors 3-/5. Knee extensors 3-/5. Ankle dorsiflexors 4-/5. Ankle plantarflexors 4-/5. Left Lower Extremity: Hip flexors 3-/5. Hip abductors 4-/5. Knee flexors 3-/5. Knee extensors 3-/5. Ankle dorsiflexors 4-/5. Ankle plantarflexors 4-/5. Bed Mobility/Transfers: Supine to sit contact guard assist Sit to stand stand by assist Stand to sit stand by assist Bed to chair stand by assist Gait: Patient able to tolerate gait for 30 feet requiring contact guard assist from PT using FWW.? Decreased violeta.? Decreased step length and height. No LOB.? Reported fatigue and shortness of breath with activity. Balance: Static Sitting: Good Dynamic Sitting: Fair Static Standing: Fair Dynamic Standing: Fair Special Tests: Mobility Limitations Standardized Measure [facility] 6 clicks Basic Mobility Inpatient Short Form: Raw Score: 18 ? CMS Score: 47% deficit Assessment: Patient presents with clinical signs and symptoms consistent with current/admitting diagnoses that have resulted to mobility limitations, gait instability, generalized weakness, and impairment of motor control as demonstrated by the following impairment level findings: 1.? Decreased strength to B UE/LE major muscle groups 2.? Impaired static and dynamic standing balance Impairments are contributing to the following functional limitations: 2.? Inability to safely ambulate without assistive device 3.? Increase completion time for mobility ADL performance 4.? Increased fall risk Goals: Goals X1 week 1. Supine-Sit independent NOT MET 2. Sit-Supine independent NOT MET 3. Sit-Stand independent NOT MET 4. Stand-Sit independent NOT MET 5. Bed-Chair independent NOT MET 6. Chair-Bed independent NOT MET 7.? Independent gait on level surface with use of straight cane for at least 100 feet without report of pain nor dyspnea NOT MET 8.? Independent stair negotiation while holding onto bilateral rails for at least 5 steps without report of pain nor dyspnea NOT MET 9. Good static and dynamic standing balance/tolerance NOT MET DISCHARGE RECOMMENDATIONS: [] ? Home with no services [] [X] ? Home with services.? Home when medically cleared by hospitalist.? Patient will benefit from home health PT services in order to progress mobility level using least restrictive assistive ambulatory device, assess home safety, identify additional equipment needs, and establish a functional maintenance program that will increase ability of patient to remain at home. [] ? Home with outpatient PT [] [] ? SNF for continued rehabilitation [] [] ? Merchandise Team Manager Care [] [] ? SNF versus LTC based on ability to participate and progress [] TREATMENT CODE/TIME: 25354 x 16 minutes beginning at 10:45 AM. Thank you for the opportunity to participate in the care of this patient. Tawana Cruz PT, DPT, CLT [facility] [place], [place]
--- NOTE | 2023-01-13 12:39 | PDOC.HHF2F ---
Home Health Referral Home Health Orders Clinical synopsis of why skilled professionals are needed: medication oversight, safety evaluation, frequent falls Medical diagnosis necessitation home health referral: pancreatitis, c diff colitis, fractured ribs Registered Nurse: Check all that apply Instruct on new or changed medication(s)/assess compliance: Ordered Physical Therapist: Check all that apply Increase strength & endurance for safe mobility at home: Ordered To design/establish home maintenance program: Ordered Fall reduction therapy program for patient with history of frequent falls: Ordered Home safety evaluation and teaching/gait training including stair management (if applicable): Ordered Machine Stamper: Assist with community resources: Ordered Assist with residential care planning: Ordered Encounter Date and Reason: I certify that a FTF encounter for this patient was performed on January 13, 2023 and that such encounter was related to the primary reason the patient requires home health services. The encounter was conducted in the following manner: By me as the certifying physician, SLAB CONDITIONER SUPERVISOR, PA or By an inpatient physician, SLAB CONDITIONER SUPERVISOR or PA during an inpatient stay who communicated findings to me, Certification And Authentication I certify that I composed the above information based on my clinical judgment relating to this patient's medical condition and, if applicable, clinical findings communicated to me by the NPP or inpatient physician who performed the FTF encounter. Name of Provider that will be monitoring home health services: Lavelle Galindo
--- NOTE | 2023-01-13 14:04 | CMDISCH_ITS ---
Date of service: 01/13/23 Time of Service: 14:04 LACE Index Scoring Tool Questions: Length of Stay (in days): 3 Was the patient admitted via the E.D.?: Yes Comorbidities: Any Tumor and Liver or Renal Disease E.D. Visits: 12 Answers: Total Score: 15 Risk of Readmission: High Risk Care Management Discharge Plan Reason for Hospitalization: pancreatitis Discharge Plan: Leticia will return home with new orders for HH PT. RCT will tr ansport her home via private vehicle, coordinated by CM. She will follow up with her PCP and discharge plan of care. She is happy to go home to be with her dog, Lm. Patient/Family Education Needs: Review discharge instructions and limitations, discussion of self care needs including ask me three. Services Needed at Discharge: Home Health Care Services (HH PT)
== END 2023-01-13 14:08 | disposition home health service (06) | DRG 439 ==
LOC: ER 20:13 → MS 21:23
PROVIDERS: Nurse Practitioner Acute Care; Admitting Provider General Practice; Emergency Provider Physician Assistant; PCP Family Medicine; Visit Provider General Practice
DX: K85.20 Alcohol induced acute pancreatitis without necrosis or infection (principal); A04.72 Enterocolitis due to Clostridium difficile, not specified as recurrent; E87.21 Acute metabolic acidosis; S22.41XA Multiple fractures of ribs, right side, initial encounter for closed fracture; W19.XXXA Unspecified fall, initial encounter; E83.42 Hypomagnesemia; E86.0 Dehydration; R11.2 Nausea with vomiting, unspecified; R00.0 Tachycardia, unspecified; G47.00 Insomnia, unspecified; N39.46 Mixed incontinence; F41.9 Anxiety disorder, unspecified; F32.A Depression, unspecified; E04.1 Nontoxic single thyroid nodule; R91.1 Solitary pulmonary nodule; D75.89 Other specified diseases of blood and blood-forming organs; D69.6 Thrombocytopenia, unspecified; F43.10 Post-traumatic stress disorder, unspecified; I10 Essential (primary) hypertension; E78.5 Hyperlipidemia, unspecified; D50.9 Iron deficiency anemia, unspecified; F10.10 Alcohol abuse, uncomplicated; Z66 Do not resuscitate; E87.6 Hypokalemia
CPT/HCPCS: 36415; 80048; 80053; 82805; 83690; 85027; 87493; 87505; 93005; 96361; 96365; 96366; 96375; 97162; 97530; 99285; 74177; 80320; 81003; 81015; 82140; 83605; 83735; 84484; 85025; 85610; 87086; 93010; 94640; 99222; 99233; 99239; J0780; J2060; J2270; J3475; J3480; J3490; J7626

== ENCOUNTER 2023-01-15 08:03 | Emergency (ER) | payer MEDICARE, SELFPAY ==
[2023-01-15] VITALS (24 sets, daily range): BP systolic 128–171; BP diastolic 66–92; PULSE 83–114; RESP 14–26; TEMP 36.9; O2SAT 96–100
--- NOTE | 2023-01-15 08:00 | RT.EKG_ITS ---
APPROVED REPORT Exam: Resting ECG Reason for Exam: abd pain Patient Location: E HR:111 bpm ECG Measurements Heart Rate 111 AXIS NM 186 P 46 QRSd 85 QRS -33 QT 342 T 9 QTc 465 Conclusion Sinus tachycardia...rate> 99 Inferior infarct, old...Q >35mS, II III aVF Consider anterior infarct...Q >30mS in V2-V5. Sinus. Left axis. No STEMI. I have reviewed and interpreted ECG and agree with software generated interpretation.
--- NOTE | 2023-01-15 08:15 | DI.CT_ITS ---
Exam(s) CT ABDOMEN PELVIS W EXAM: CT ABDOMEN PELVIS W CLINICAL HISTORY: abd pain cdif TECHNIQUE: Imaging Protocol: Axial computed tomography images with coronal and sagittal reformatted images were created and reviewed CONTRAST MATERIAL: Intravenous: Omnipaque 350 Contrast volume:100 mL Oral: No COMPARISON: CT CT CHEST/ABD/PEL W from 12/16/[address] ABDOMEN PELVIS W from 01/10/2023 FINDINGS: ABDOMEN: Lung Bases: Normal where visualized. Liver: Findings of hepatic cirrhosis. No measurable mass. Portal, Superior Mesenteric, and Splenic Veins: Unremarkable. Gallbladder and Biliary Tract: Status post cholecystectomy. No significant intra or extrahepatic azeem iary ductal dilatation. Pancreas: Normal density, no abnormal calcifications or inflammatory process. There is a stable tiny cyst in the tail of the pancreas. Spleen: Normal. Adrenals: There is stable nodularity of the left adrenal gland. Kidneys: Normal size, contour and axis. No radiodense stones or obstructive uropathy. Stable simple b ilateral renal cysts. No follow-up is recommended. Abdominal Aorta: Abdominal portion non-dilated. Atherosclerosis is present. Bowel: No evidence of obstruction. There is mild wall thickening seen in the cecum and ascending col on. There is mild thickening of the wall of the distal stomach. This may be due to underdistention but gastritis cannot be excluded. No evidence of appendicitis. Peritoneal Cavity: There is persistent moderate amount of abdominal pelvic ascites. No free air.Ther e has been no change in size of the presacral mass. Lymph Nodes: Within normal limits. Bones: Within normal limits for the patient's age. There are stable healing right rib fractures. Th ere are also again seen old united and nonunited bilateral rib fractures. Stable grade 1 anterolisth esis of L4 on L5. There is a stable compression fracture deformity of the inferior endplate of T12. Soft Tissues: Unremarkable. PELVIS: Bladder: Symmetric distention, no gross wall thickening. Reproductive Organs: Unremarkable as visualized. Lymph Nodes: Within normal limits. Bones: Within normal limits for the patient's age. IMPRESSION: 1. There is thickening of the wall of the cecum and ascending colon suspicious for an infectious or i nflammatory colitis. 2. Otherwise stable appearance of the abdomen and pelvis. Findings include but are not limited to he patic cirrhosis, abdominal ascites and stable presacral mass. RADIATION DOSE DELIVERED: 1,102.63mGy.cm Total DLP DATA REPOSITORY: All CT scans at this facility are submitted to the National Radiology Data Registry (NRDR) Dose Index Registry (DIR) with the [employer] (ACR). RADIATION OPTIMIZATION: All CT scans at this facility use at least one of these dose optimization te chniques: automated exposure control; mA and/or kV adjustment per patient size (includes targeted exa ms where dose is matched to clinical indication); or iterative reconstruction.
[2023-01-15] MEDS: Ondansetron 4 MG/2 ML VIAL IVP (08:55)
[2023-01-15] MEDS: Omnipaque 350 MG/ML 100 ML BTL IJ (09:00)
[2023-01-15] MEDS: Normal Saline - Diluent 50 ML VIAL IJ (09:00)
[2023-01-15] MEDS: Lactated Ringers 1,000 ML 1000 ML IV (09:22)
--- NOTE | 2023-01-15 10:19 | ED.GENADUL_ITS ---
Discharge Plan Disposition Patient Disposition: Home Discharge Details Clinical Impression: Hypomagnesemia, Clostridium difficile diarrhea Primary Care Provider: Lavelle Galindo ED Provider: Monica Yarbrough Home Meds and New Rx's Prescriptions: New magnesium oxide 400 mg magnesium tablet 400 mg PO BID Qty: 30 0RF Dificid 200 mg tablet 200 mg PO Q12H Qty: 20 0RF Continued Xiidra 5 % dropperette 1 drp ophthalmic (eye) BID Rx Instructions: administer approximately 12 hours apart budesonide [Pulmicort] 0.5 mg/2 mL suspension for nebulization 0.5 mg inhalation DAILY Qty: 60 5RF Patient Comments: pt states meds come in blister pack labeled daily by [employer] and she takes them but doesn't know the names furosemide 20 mg tablet See Rx Instructions PO BID Qty: 180 3RF Patient Comments: pt states meds come in blister pack labeled daily by [employer] and she takes them but doesn't know the names Rx Instructions: orally twice a day; 3 tabs (60mg) in AM and 2 tabs(40mg in afternoon; ipratropium-albuterol 0.5 mg-3 mg(2.5 mg base)/3 mL solution for nebulization 3 ml inhalation Q6H PRN Patient Comments: pt states meds come in blister pack labeled daily by [employer] and she takes them but doesn't know the names Myrbetriq 50 mg tablet extended release 24 hr 50 mg PO DAILY Qty: 30 12RF albuterol sulfate [Ventolin HFA] 90 mcg/actuation HFA aerosol inhaler 2 puff inhalation QID PRN (Reason: shortness of breath or wheezing) Qty: 8.5 1RF amlodipine 10 mg tablet 10 mg PO DAILY Qty: 90 3RF Patient Comments: pt states meds come in blister pack labeled daily by [employer] and she takes them but doesn't know the names buspirone 5 mg tablet 5 mg PO BID Qty: 60 5RF Patient Comments: pt states meds come in blister pack labeled daily by [employer] and she takes them but doesn't know the names folic acid 1 mg tablet 1 mg PO DAILY Qty: 90 3RF Patient Comments: pt states meds come in blister pack labeled daily by [employer] and she takes them but doesn't know the names melatonin 3 mg capsule 6 mg PO HS Qty: 180 3RF Patient Comments: pt states meds come in blister pack labeled daily by [employer] and she takes them but doesn't know the names metoprolol tartrate 50 mg tablet 50 mg PO DAILY Qty: 90 3RF Patient Comments: pt states meds come in blister pack labeled daily by [employer] [facility] and she takes them but doesn't know the names mirtazapine 7.5 mg tablet 7.5 mg PO QHS Qty: 90 4RF Patient Comments: pt states meds come in blister pack labeled daily by [employer] and she takes them but doesn't know the names sucralfate 1 gram tablet 1 g PO BID Qty: 60 11RF Patient Comments: pt states meds come in blister pack labeled daily by [employer] and she takes them but doesn't know the names thiamine HCl (vitamin B1) 100 mg tablet 100 mg PO DAILY Qty: 90 3RF Patient Comments: pt states meds come in blister pack labeled daily by [employer] [facility] and she takes them but doesn't know the names valacyclovir [Valtrex] 500 mg tablet 500 mg PO DAILY Qty: 90 3RF Patient Comments: pt states meds come in blister pack labeled daily by [employer] and she takes them but doesn't know the names Rx Instructions: Take 500 mg BID for 3 days, then take daily fluticasone propionate 50 mcg/actuation spray,suspension 2 spray NS daily prn Qty: 16 5RF Patient Comments: pt states meds come in blister pack labeled daily by [employer] and she takes them but doesn't know the names cyanocobalamin (vitamin B-12) [Vitamin B-12] 500 mcg tablet 1,000 mcg PO DAILY Qty: 180 3RF Patient Comments: pt states meds come in blister pack labeled daily by [employer] [facility] and she takes them but doesn't know the names ferrous sulfate 325 mg (65 mg iron) tablet 325 mg PO BID Qty: 180 3RF Patient Comments: pt states meds come in blister pack labeled daily by [employer] [facility] and she takes them but doesn't know the names Rx Instructions: do not take within 2 hours of antibiotics multivitamin [Multiple Vitamins] Tablet 1 tab PO DAILY Qty: 90 3RF Patient Comments: pt states meds come in blister pack labeled daily by [employer] [facility] and she takes them but doesn't know the names quetiapine 25 mg tablet See Rx Instructions PO BID Qty: 60 5RF Patient Comments: pt states meds come in blister pack labeled daily by [employer] [facility] and she takes them but doesn't know the names Rx Instructions: 0.5 tab PO twice a day; spironolactone [Aldactone] 50 mg tablet 50 mg PO BID Qty: 180 3RF Patient Comments: pt states meds come in blister pack labeled daily by [employer] [facility] and she takes them but doesn't know the names venlafaxine 75 mg capsule,extended release 24hr 75 mg PO DAILY Qty: 90 3RF Hold Instructions: Home Medication placed on hold at Doctor's office Patient Comments: pt states meds come in blister pack labeled daily by [employer] [facility] and she takes them but doesn't know the names. aspirin 81 mg tablet,delayed release (DR/EC) 81 mg PO DAILY Qty: 90 3RF Patient Comments: pt states meds come in blister pack labeled daily by [employer] [facility] and she takes them but doesn't know the names ondansetron HCl 4 mg tablet 4 mg PO Q6H PRN (Reason: nausea and vomiting) Qty: 20 1RF lorazepam 0.5 mg tablet 0.5 mg PO QHS PRN (Reason: anxiety) Qty: 20 0RF carboxymethylcellulose sodium [Refresh Plus] 0.5 % Dropperette 1 drp OU Q4H WHILE AWAKE Qty: 30 0RF Patient Comments: pt states meds come in blister pack labeled daily by [employer] [facility] and she takes them but doesn't know the names pantoprazole 40 mg Tablet,Delayed Release (Dr/Ec) 40 mg PO BID@729,1999 Qty: 60 0RF Patient Comments: pt states meds come in blister pack labeled daily by [employer] and she takes them but doesn't know the names loperamide 2 mg Capsule 2 mg PO Q4H PRN PRNQty: 12 0RF lidocaine 5 % Adhesive Patch,Medicated 2 patch topical Q24H Qty: 30 0RF metronidazole 500 mg tablet 500 mg PO TID Qty: 30 0RF Discharge Data Discharge Date/Time-TO BE ENTERED AT DEPARTURE: 01/15/23 14:47 Medical Decision Making This 77-year-old female presents with report of nausea, vomiting, diarrhea She was discharged 2 days ago from this facility She is mildly dehydrated and has hypomagnesemia, she is also not been treated continuously for her C. difficile infection She is an alcoholic so Flagyl will be changed to Dificid, she was given the first dose here, she was also given a prescription for home Patient was given antiemetics and magnesium supplementation from Magnesium was 1.3, supplemented with 2 g of magnesium Patient is ambulatory at her baseline with walker and is stable for discharge home at this time She was given 1 L of IV fluid, 2 g of magnesium, antiemetics, she is able to tolerate p.o. She is given a first dose of Dificid Return precautions reviewed in detail and patient expressed understanding Medical Records Medical records reviewed: Yes I reviewed the patient's medical records. Lab Data Lab results reviewed: Yes I reviewed the patient's lab results. HPI General Date/Time Provider Initiated Documentation: 01/15/23 08:06 . HPI Narrative: This 77-year-old female known to this facility presents with report of persistent abdominal pain, persistent diarrhea, persistent nausea in the presence of recent admission for C. difficile colitis and acute pancreatitis. She was discharged on the from this facility. She states she has had 1 drink since she was home but has not had anything additionally She was prescribed Flagyl which she has not taken. Denies any fever or chills. Denies chest discomfort shortness of breath. States she feels weak Related Data Home Medications Medication Instructions Recorded Confirmed carboxymethylcellulose sodium 0.5 1 drp OU Q4H WHILE AWAKE #30 ea 06/20/19 01/10/23 % eye drops in a dropperette (Refresh Plus) lifitegrast 5 % eye drops in a 1 drp ophthalmic (eye) BID 08/05/20 01/10/23 dropperette (Xiidra) ipratropium 0.5 mg-albuterol 3 mg 3 ml inhalation Q6H PRN 12/25/21 01/10/23 (2.5 mg base)/3 mL nebulization soln albuterol sulfate 90 mcg/actuation 2 puff inhalation QID PRN 02/08/22 01/10/23 aerosol inhaler (Ventolin HFA) shortness of breath or wheezing #8.5 grams amlodipine 10 mg tablet 10 mg PO DAILY #90 tabs 02/08/22 01/10/23 buspirone 5 mg tablet 5 mg PO BID #60 tabs 02/08/22 01/10/23 folic acid 1 mg tablet 1 mg PO DAILY #90 tabs 02/08/22 01/10/23 melatonin 3 mg capsule 6 mg PO HS #180 caps 02/08/22 01/10/23 metoprolol tartrate 50 mg tablet 50 mg PO DAILY #90 tabs 02/08/22 01/10/23 mirtazapine 7.5 mg tablet 7.5 mg PO QHS #90 tabs 02/08/22 01/10/23 sucralfate 1 gram tablet 1 g PO BID #60 tabs 02/08/22 01/10/23 thiamine HCl (vitamin B1) 100 mg 100 mg PO DAILY #90 tabs 02/08/22 01/10/23 tablet valacyclovir 500 mg tablet 500 mg PO DAILY #90 tabs 02/08/22 01/10/23 (Valtrex) fluticasone propionate 50 2 spray NS daily prn #16 grams 03/06/22 01/10/23 mcg/actuation nasal spray,suspension budesonide 0.5 mg/2 mL suspension 0.5 mg (2 mL) inhalation DAILY #60 05/06/22 01/10/23 for nebulization (Pulmicort) mL pantoprazole 40 mg tablet,delayed 40 mg PO BID@0730,1999 #60 tabs 05/21/22 01/10/23 release cyanocobalamin (vitamin B-12) 500 1,000 mcg PO DAILY #180 tabs 07/10/22 01/10/23 mcg tablet (Vitamin B-12) ferrous sulfate 325 mg (65 mg 325 mg PO BID #180 tabs 07/10/22 01/10/23 iron) tablet multivitamin (Multiple Vitamins 1 tab PO DAILY #90 tabs 07/10/22 01/10/23 tablet) quetiapine 25 mg tablet See Rx Instructions PO BID #60 tabs 07/10/22 01/10/23 spironolactone 50 mg tablet 50 mg PO BID #180 tabs 07/10/22 01/10/23 (Aldactone) venlafaxine 75 mg capsule,extended 75 mg PO DAILY #90 caps 07/10/22 01/10/23 release 24 hr mirabegron 50 mg tablet,extended 50 mg PO DAILY #30 tabs 07/20/22 01/10/23 release 24 hr (Myrbetriq) aspirin 81 mg tablet,delayed 81 mg PO DAILY #90 tabs 08/05/22 01/10/23 release furosemide 20 mg tablet See Rx Instructions PO BID #180 08/11/22 01/10/23 tabs ondansetron HCl 4 mg tablet 4 mg PO Q6H PRN nausea and 12/11/22 01/10/23 vomiting #20 tabs lidocaine 5 % topical patch 2 patch topical Q24H #30 ea 01/13/23 loperamide 2 mg capsule 2 mg PO Q4H PRN PRN #12 caps 01/13/23 metronidazole 500 mg tablet 500 mg PO TID #30 tabs 01/13/23 fidaxomicin 200 mg tablet (Dificid) 200 mg PO Q12H #20 tabs 01/15/23 lorazepam 0.5 mg tablet 0.5 mg PO QHS PRN anxiety #20 tabs 01/15/23 magnesium oxide 400 mg PO BID #30 tabs 01/15/23 Previous Rx's Medication Instructions Recorded carboxymethylcellulose sodium 0.5 1 drp OU Q4H WHILE AWAKE #30 ea 06/20/ % eye drops in a dropperette (Refresh Plus) albuterol sulfate 90 mcg/actuation 2 puff inhalation QID PRN 02/08/22 aerosol inhaler (Ventolin HFA) shortness of breath or wheezing #8.5 grams amlodipine 10 mg tablet 10 mg PO DAILY #90 tabs 02/08/22 buspirone 5 mg tablet 5 mg PO BID #60 tabs 02/08/22 folic acid 1 mg tablet 1 mg PO DAILY #90 tabs 02/08/22 melatonin 3 mg capsule 6 mg PO HS #180 caps 02/08/22 metoprolol tartrate 50 mg tablet 50 mg PO DAILY #90 tabs 02/08/22 mirtazapine 7.5 mg tablet 7.5 mg PO QHS #90 tabs 02/08/22 sucralfate 1 gram tablet 1 g PO BID #60 tabs 02/08/22 thiamine HCl (vitamin B1) 100 mg 100 mg PO DAILY #90 tabs 02/08/22 tablet valacyclovir 500 mg tablet 500 mg PO DAILY #90 tabs 02/08/22 (Valtrex) fluticasone propionate 50 2 spray NS daily prn #16 grams 03/06/22 mcg/actuation nasal spray,suspension budesonide 0.5 mg/2 mL suspension 0.5 mg (2 mL) inhalation DAILY #60 05/06/22 for nebulization (Pulmicort) mL pantoprazole 40 mg tablet,delayed 40 mg PO BID@07,1999 #60 tabs 05/21/22 release cyanocobalamin (vitamin B-12) 500 1,000 mcg PO DAILY #180 tabs 07/10/22 mcg tablet (Vitamin B-12) ferrous sulfate 325 mg (65 mg 325 mg PO BID #180 tabs 07/10/22 iron) tablet multivitamin (Multiple Vitamins 1 tab PO DAILY #90 tabs 07/10/22 tablet) quetiapine 25 mg tablet See Rx Instructions PO BID #60 tabs 07/10/22 spironolactone 50 mg tablet 50 mg PO BID #180 tabs 07/10/22 (Aldactone) venlafaxine 75 mg capsule,extended 75 mg PO DAILY #90 caps 07/10/22 release 24 hr mirabegron 50 mg tablet,extended 50 mg PO DAILY #30 tabs 07/20/22 release 24 hr (Myrbetriq) aspirin 81 mg tablet,delayed 81 mg PO DAILY #90 tabs 08/05/22 release furosemide 20 mg tablet See Rx Instructions PO BID #180 08/11/22 tabs ondansetron HCl 4 mg tablet 4 mg PO Q6H PRN nausea and 12/11/22 vomiting #20 tabs lidocaine 5 % topical patch 2 patch topical Q24H #30 ea 01/13/23 loperamide 2 mg capsule 2 mg PO Q4H PRN PRN #12 caps 01/13/23 metronidazole 500 mg tablet 500 mg PO TID #30 tabs 01/13/23 fidaxomicin 200 mg tablet (Dificid) 200 mg PO Q12H #20 tabs 01/15/23 lorazepam 0.5 mg tablet 0.5 mg PO QHS PRN anxiety #20 tabs 01/15/23 magnesium oxide 400 mg PO BID #30 tabs 01/15/23 Allergies Allergy/AdvReac Type Severity Reaction Status Date / Time Penicillins Allergy Mild Rash Verified 01/15/23 08:08 ramipril Allergy Unknown ITCHING Verified 01/15/23 08:08 meperidine [From Demerol] AdvReac Severe Nausea Verified 01/15/23 08:08 bupropion AdvReac Mild GI upset Verified 01/15/23 08:08 AMBER Inhibitors AdvReac Unknown COUGH Verified 01/15/23 08:08 alendronate sodium AdvReac Unknown GI Distress Verified 01/15/23 08:08 clarithromycin AdvReac Unknown intolerant Verified 01/15/23 08:08 paroxetine AdvReac Unknown Diarrhea Verified 01/15/23 08:08 General Stated Complaint: Abd Prob JORDAN: 3 PFSH All Active Problems (Updated 01/16/23 @ 00:15 by BARB ACHARYA) Hypomagnesemia (Acute) Clostridium difficile diarrhea (Acute) Hypokalemia (Acute) Alcohol abuse (Chronic) DVT prophylaxis (Acute) Multiple rib fractures (Chronic) 03/11/19 [facility] Alcohol withdrawal (Acute) Hypomagnesemia (Acute) Breast nodule (Acute) Contusion of hip (Acute) Sleep disturbance (Acute) Sinus tachycardia (Acute) High anion gap metabolic acidosis (Acute) Elevated blood pressure reading with diagnosis of hypertension (Acute) Pincer nail deformity (Acute) Insomnia (Acute) Thrombocytopenia (Chronic) Elevated bilirubin (Acute) Mixed stress and urge urinary incontinence (Acute) Thyroid nodule (Acute) Anxiety (Chronic) Adverse effect of metronidazole (Acute) Medication monitoring encounter (Acute) Advance care planning (Acute) Cirrhosis of liver with ascites (Acute) Animal bite of right hand with infection (Acute) Umbilical hernia (Acute) Hyperbilirubinemia (Acute) Shortness of breath (Acute) Elevated blood pressure reading without diagnosis of hypertension (Acute) Left arm pain (Acute) Ambulatory dysfunction (Acute) Incontinence (Acute) Anorexia (Acute) Headache (Acute) Depression (Chronic) Chest pain (Acute) Foot pain, right (Acute) Tendinitis of left rotator cuff (Acute) Macrocytosis (Acute 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 Leukopenia (Acute) Headache (Acute) Epigastric abdominal pain (Acute) Calcific tendinitis of left shoulder (Acute) Pulmonary mass (Acute) spiculated mass Pneumonia (Acute) Depression with suicidal ideation (Acute) Alcohol abuse (Chronic) Diarrhea (Acute) Epigastric pain (Acute) Dehydration (Acute) Discharge planning issues (Acute) Difficult intravenous access (Acute) Multiple IV attempts, usually requires ultrasound placement. PTSD (post-traumatic stress disorder) (Acute) Anemia (Chronic) Depression (Chronic) Foot pain, right (Acute) T12 compression fracture (Acute) Presacral mass (Chronic) Deviated nasal septum (Acute) Frequent falls (Chronic) Head injury (Acute) Ambulatory dysfunction (Chronic) Shoulder pain, right (Chronic) Suicidal ideation (Acute) Dry eye (Acute) Pruritus (Acute) Dystrophic nail (Acute) AMBER (acute kidney injury) (Acute) Iron deficiency anemia (Chronic) Fall (Acute) Atelectasis of left lung (Chronic) Advance directive on file (Acute) Nodule of upper lobe of right lung (Acute ~09/13/18) 09/13/18 [facility]; 12mm SPICULATED -kb Cataract (Chronic 11/07/15) Hypertension (Chronic) high today; she will check readings at home Hyperlipidemia (Chronic) Back pain, chronic (Chronic) Depression (Chronic) Osteopenia (Chronic) Medical History Adjustment disorder with depressed mood Alcoholic ketosis Anemia Cervical radicular pain neck pain and [facility] 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) pls refrain from alcohol Chronic alcoholism she will not stop drinking unless she checks with me, so that we can help her avert withdrawal I do not think she is capable on her own--she would need placement to achieve required goal of 3 months of sobriety Chronic diarrhea Closed right humeral fracture Corneal ulcer, right (~08/23/18) 08/23/18; [facility] Fracture of humerus, left, closed Genital herpes simplex recurrent gential; suppressive Valtrex GERD (gastroesophageal reflux disease) GI bleed (12/20/16) Hypertension Hypokalemia Hypokalemia Hypomagnesemia Incidental lung nodule, greater than or equal to 8mm 1cm, spiculated, stable for many years, recommend f/u in 6 mo Multiple rib fractures 03/11/19 [facility] Non-cardiac chest pain (09/21/16) [facility] 09/21/16 NEGATIVE MP Osteoarthritis Palliative care patient (03/21/17) Pancreatitis, alcoholic, acute Peripheral edema Photophobia of right eye Pleural effusion on left 03/11/19 [facility] Presacral mass (~09/15/18) 09/15/18 [facility] Sciatica right, epidural injuections [facility] Tubular adenoma of colon (01/28/17) Urinary incontinence 01/24/13 urethral suspension and sling at [facility] (bladder suspension 1991) 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 Bladder repair. Repair bladder injury, simple S/P laparoscopic cholecystectomy (~05/19/22) Family History Mother No problems noted. Father , DROWNED at age 50. No problems noted. Sister Personal history of malignant neoplasm MELANOMA Sister No problems noted. Grandfather Personal history of malignant neoplasm STOMACH Grandfather Personal history of malignant neoplasm PROSTATE Grandmother Heart disease MA Acute ill-defined cerebrovascular disease Grandmother Personal history of malignant neoplasm UTERINE Aunt , MA Heart disease MA Aunt , MA Heart disease Brother No problems noted. Social History Smoking/Tobacco Use Status: Former Tobacco Use Quit Date: 08/29/80 Smoking risk assessment performed?: Yes Alcohol Intake: current Alcohol Intake frequency: 3 or more drinks per day Alcohol type: hard liquor Drug use: Never Substance use type: does not use Details: Last alcoholic drink Mike Odot[place]hey, 2 days ago Current gender identity: female Do you feel safe at home: Yes Do you feel safe in your relationship?: No Additional Social history: Has 1 dog, 4 cats. Exam Narrative Exam Narrative: Patient appears weak, she is pale, pupils equal round reactive to light and accommodation, lungs clear to auscultation, cardiac rate tachycardic, normal rhythm, mild right upper quadrant abdominal tenderness, no rebound or guarding, pallor, alert and oriented x4, no peripheral edema Const General: disheveled Orientation: alert and oriented x3 Other: Chronically ill-appearing HENMT Head: normal to inspection Eyes Pupils: PERRL Resp Effort & Inspection: normal respiratory effort Auscultation: clear to auscultation bilaterally Cardio Rate: regular rate Rhythm: regular rhythm GI Inspection: normal to inspection Auscultation: normal bowel sounds Skin General skin exam: no rashes or lesions noted Neuro General: patient alert Cranial Nerves: CN's II-XI intact bilaterally and tongue midline Extrem General: normal to inspection Course Vital Signs Vital signs: Vital Signs Pulse 109 H 01/15/23 08:05 Respiratory Rate 24 01/15/23 08:05 Blood Pressure 135/66 01/15/23 08:05 Pulse Oximetry 98 01/15/23 08:05 Temperature 36.9 C 01/15/23 08:09 Temperature Source Oral 01/15/23 08:09 Pulse 109 H 01/15/23 08:05 Respiratory Rate 24 01/15/23 08:05 Respiratory Effort Normal, Non-Labored 01/15/23 08:06 Blood Pressure 135/66 01/15/23 08:05 Pulse Oximetry 98 01/15/23 08:05 Oxygen Delivery Method Room Air 01/15/23 08:05 Oxygen Flow Rate 0 01/15/23 08:05 PAWSS Have you Been Recently Intoxicated or Drunk Within the Last 30 days?: No Have you Ever Experienced Previous Episodes of Alcohol Withdrawal?: Yes Have you ever Experienced Withdrawal Seizures?: No Have you ever Experienced Delirium Tremens(DT)s?: No Have you ever undergone Alcohol Rehabilitation Treatment (i.e, inpt ot outpatient treatment programs)?: Yes Have you ever Experienced Blackouts?: No Have you ever Combined Alcohol with other Downers within the last 90 days?: No Have you ever Combined Alcohol with any other Substance of Abuse during the last 90 days?: No Positive Blood Alcohol level on Presentation? [PCS.BAL]: No Evidence of Increased Autonomic Activity (i.e. HR>120, tremor, sweating, agitation, nausea)?: No Result: 2
[2023-01-15 10:22] LABS: Abs Immature Grans 0.15 10^3/uL (0.0-0.06); Absolute Basophil Count 0.01 10^3/uL (0.0-0.2); Absolute Lymphocyte Count 0.56 10^3/uL (1.2-3.4); Absolute Neutrophil Count 1.99 10^3/uL (1.2-6.7); Basophils % 0.3; HCT 27.4 % (36.0-46.0); Lymphocytes % 18.6; MCH 33.6 pg (27.0-33.0); MCHC 32.8 % (32.0-36.0); MCV 102 fL (80-95); MPV 9.1 fL (8.0-11.0); Neutrophils % 66.1; Platelet Count 108 10^3/uL (130-400); RBC 2.68 10^6/uL (3.93-5.22); WBC 3.01 10^3/uL (4.4-10.8)
[2023-01-15 10:29] LABS: ALT 14 U/L (14-59); AST 40 U/L (15-37); Albumin 2.6 g/dL (3.4-5.0); Alkaline Phosphatase 196 U/L (46-116); BUN 10 mg/dL (7-18); Bilirubin, Total 0.9 mg/dL (0.2-1.0); CREATININE 0.8 mg/dL (0.55-1.02); Calcium 8.7 mg/dL (8.5-10.1); Chloride 101 mmol/L (98-107); Estimated GFR 76.31 (mL/min/1.73m2); Glucose 122 mg/dL (74-106); Magnesium 1.3 mg/dL (1.8-2.4); Potassium 3.6 mmol/L (3.5-5.1); Sodium 136 mmol/L (136-145); Total Protein 5.3 g/dL (6.4-8.2); Troponin I < 50 ng/L (<or=60)
[2023-01-15 10:46] LABS: ETHANOL BLOOD < 3.0 mg/dL (<10)
--- NOTE | 2023-01-15 10:52 | DI.VRAD_ITS ---
PROCEDURE INFORMATION: Exam: CT Abdomen And Pelvis With Contrast Exam date and time: 01/15/2023 8:59 AM Age: 77 years old Clinical indication: Other: Abd pain, cdif TECHNIQUE: Imaging protocol: Computed tomography of the abdomen and pelvis with contrast. Radiation optimization: All CT scans at this facility use at least one of these dose optimization techniques: automated exposure control; mA and/or kV adjustment per patient size (includes targeted exams where dose is matched to clinical indication); or iterative reconstruction. Contrast material: OMNIPAQUE 350; Contrast volume: 100 ml; Contrast route: INTRAVENOUS (IV); COMPARISON: CT ABDOMEN PELVIS W 01/10/2023 5:49 PM FINDINGS: Liver: Lobulated liver contour. Gallbladder and bile ducts: Cholecystectomy. Pancreas: Normal. No ductal dilation. Spleen: Normal. No splenomegaly. Adrenal glands: Thickening of the left adrenal gland. Right adrenal gland not well visualized. Kidneys and ureters: Bilateral renal cortical cystic nodules largest right kidney measuring 2.7 cm. Stomach and bowel: Diffuse thickening of the ascending colon wall and cecum. Appendix: No evidence of appendicitis. Intraperitoneal space: Abdominal and pelvic wall edema. Moderate volume intra-abdominal ascites. Mesenteric edema. Vasculature: Unremarkable. No abdominal aortic aneurysm. Lymph nodes: Unremarkable. No enlarged lymph nodes. Urinary bladder: Unremarkable as visualized. Reproductive: Left of midline uterus. No adnexal mass. Bones/joints: Anterolisthesis L4 on L5. Multilevel advanced lumbar spine disc degeneration.. No acute fracture. Soft tissues: Fluid present in the left inguinal canal. IMPRESSION: 1. Ascending colitis. 2. Liver cirrhosis. 3. Intra-abdominal ascites. 4. Bilateral renal cortical cysts. Dictated and Authenticated by: Christopher Hanna MD. Ordering:RIZWAN Anderson MD
[2023-01-15] MEDS: MAGNESIUM SULFATE 2 GM/50 ML BAG IVPB (11:05)
[2023-01-15] MEDS: Fidaxomicin 200 MG TAB PO (11:29)
[2023-01-15] MEDS: ACETAMINOPHEN 1,000 MG/100 ML BTL 400 MG IVPB (12:14)
[2023-01-15] MEDS: Normal Saline 1,000 ML 1000 ML IV (12:14)
--- NOTE | 2023-01-17 09:27 | NUR.NOTE ---
Nursing Note: Accessed pt chart to determine what medications were prescribed for her. [facility] called stating that she had not picked her prescription from last week, were we aware? Spoke with Tash Servin and she will try to contact pt and/or PCP.
== END 2023-01-15 14:47 | disposition home or self-care (01) ==
PROVIDERS: Emergency Provider Physician Assistant; PCP Family Medicine
DX: E83.42 Hypomagnesemia (principal); A04.72 Enterocolitis due to Clostridium difficile, not specified as recurrent; Z79.899 Other long term (current) drug therapy
CPT/HCPCS: 36415; 80053; 93005; 96361; 96365; 96366; 96375; 99285; 74177; 80320; 83735; 84484; 85025; 93010; 99284; J0131; J2405; J3490

== ENCOUNTER 2023-01-29 10:23 | Emergency (ER) | payer MEDICARE, SELFPAY ==
[2023-01-29] VITALS (44 sets, daily range): BP systolic 111–171; BP diastolic 50–98; PULSE 90–118; RESP 10–33; TEMP 36.7; O2SAT 82–99
--- NOTE | 2023-01-29 10:27 | W.ED.GENAD ---
Discharge Plan Disposition Patient Disposition: Home Discharge Details Clinical Impression: Abdominal pain, Leukopenia, Thrombocytopenia, Hypomagnesemia, Elevated LFTs, Macrocytic anemia, Pelvic mass Primary Care Provider: Lavelle Galindo ED Provider: Clarence Heller Home Meds and New Rx's Prescriptions: Continued Xiidra 5 % dropperette 1 drp ophthalmic (eye) BID Rx Instructions: administer approximately 12 hours apart budesonide [Pulmicort] 0.5 mg/2 mL suspension for nebulization 0.5 mg inhalation DAILY Qty: 60 5RF Patient Comments: pt states meds come in blister pack labeled daily by [employer] and she takes them but doesn't know the names furosemide 20 mg tablet See Rx Instructions PO BID Qty: 180 3RF Patient Comments: pt states meds come in blister pack labeled daily by [employer] and she takes them but doesn't know the names Rx Instructions: orally twice a day; 3 tabs (60mg) in AM and 2 tabs(40mg in afternoon; ipratropium-albuterol 0.5 mg-3 mg(2.5 mg base)/3 mL solution for nebulization 3 ml inhalation Q6H PRN Patient Comments: pt states meds come in blister pack labeled daily by [employer] and she takes them but doesn't know the names Myrbetriq 50 mg tablet extended release 24 hr 50 mg PO DAILY Qty: 30 12RF albuterol sulfate [Ventolin HFA] 90 mcg/actuation HFA aerosol inhaler 2 puff inhalation QID PRN (Reason: shortness of breath or wheezing) Qty: 8.5 1RF amlodipine 10 mg tablet 10 mg PO DAILY Qty: 90 3RF Patient Comments: pt states meds come in blister pack labeled daily by [employer] and she takes them but doesn't know the names buspirone 5 mg tablet 5 mg PO BID Qty: 60 5RF Patient Comments: pt states meds come in blister pack labeled daily by [employer] and she takes them but doesn't know the names folic acid 1 mg tablet 1 mg PO DAILY Qty: 90 3RF Patient Comments: pt states meds come in blister pack labeled daily by [employer] and she takes them but doesn't know the names melatonin 3 mg capsule 6 mg PO HS Qty: 180 3RF Patient Comments: pt states meds come in blister pack labeled daily by [employer] and she takes them but doesn't know the names metoprolol tartrate 50 mg tablet 50 mg PO DAILY Qty: 90 3RF Patient Comments: pt states meds come in blister pack labeled daily by [employer] and she takes them but doesn't know the names mirtazapine 7.5 mg tablet 7.5 mg PO QHS Qty: 90 4RF Patient Comments: pt states meds come in blister pack labeled daily by [employer] and she takes them but doesn't know the names sucralfate 1 gram tablet 1 g PO BID Qty: 60 11RF Patient Comments: pt states meds come in blister pack labeled daily by [employer] and she takes them but doesn't know the names thiamine HCl (vitamin B1) 100 mg tablet 100 mg PO DAILY Qty: 90 3RF Patient Comments: pt states meds come in blister pack labeled daily by [employer] and she takes them but doesn't know the names valacyclovir [Valtrex] 500 mg tablet 500 mg PO DAILY Qty: 90 3RF Patient Comments: pt states meds come in blister pack labeled daily by [employer] and she takes them but doesn't know the names Rx Instructions: Take 500 mg BID for 3 days, then take daily fluticasone propionate 50 mcg/actuation spray,suspension 2 spray NS daily prn Qty: 16 5RF Patient Comments: pt states meds come in blister pack labeled daily by [employer] and she takes them but doesn't know the names cyanocobalamin (vitamin B-12) [Vitamin B-12] 500 mcg tablet 1,000 mcg PO DAILY Qty: 180 3RF Patient Comments: pt states meds come in blister pack labeled daily by [employer] and she takes them but doesn't know the names ferrous sulfate 325 mg (65 mg iron) tablet 325 mg PO BID Qty: 180 3RF Patient Comments: pt states meds come in blister pack labeled daily by [employer] and she takes them but doesn't know the names Rx Instructions: do not take within 2 hours of antibiotics multivitamin [Multiple Vitamins] Tablet 1 tab PO DAILY Qty: 90 3RF Patient Comments: pt states meds come in blister pack labeled daily by [employer] and she takes them but doesn't know the names quetiapine 25 mg tablet See Rx Instructions PO BID Qty: 60 5RF Patient Comments: pt states meds come in blister pack labeled daily by [employer] and she takes them but doesn't know the names Rx Instructions: 0.5 tab PO twice a day; spironolactone [Aldactone] 50 mg tablet 50 mg PO BID Qty: 180 3RF Patient Comments: pt states meds come in blister pack labeled daily by [employer] and she takes them but doesn't know the names venlafaxine 75 mg capsule,extended release 24hr 75 mg PO DAILY Qty: 90 3RF Hold Instructions: Home Medication placed on hold at Doctor's office Patient Comments: pt states meds come in blister pack labeled daily by [employer] and she takes them but doesn't know the names. aspirin 81 mg tablet,delayed release (DR/EC) 81 mg PO DAILY Qty: 90 3RF Patient Comments: pt states meds come in blister pack labeled daily by [employer] and she takes them but doesn't know the names ondansetron HCl 4 mg tablet 4 mg PO Q6H PRN (Reason: nausea and vomiting) Qty: 20 1RF lorazepam 0.5 mg tablet 0.5 mg PO QHS PRN (Reason: anxiety) Qty: 20 0RF carboxymethylcellulose sodium [Refresh Plus] 0.5 % Dropperette 1 drp OU Q4H WHILE AWAKE Qty: 30 0RF Patient Comments: pt states meds come in blister pack labeled daily by [employer] and she takes them but doesn't know the names pantoprazole 40 mg Tablet,Delayed Release (Dr/Ec) 40 mg PO BID@0730,1999 Qty: 60 0RF Patient Comments: pt states meds come in blister pack labeled daily by [employer] and she takes them but doesn't know the names magnesium oxide 400 mg magnesium tablet 400 mg PO BID Qty: 30 0RF Dificid 200 mg tablet 200 mg PO Q12H Qty: 20 0RF loperamide 2 mg Capsule 2 mg PO Q4H PRN PRNQty: 12 0RF lidocaine 5 % Adhesive Patch,Medicated 2 patch topical Q24H Qty: 30 0RF metronidazole 500 mg tablet 500 mg PO TID Qty: 30 0RF Discharge Instructions Additional Instructions: Please read all of the information that accompanies these instructions. You were seen in the emergency department for your abdominal pain. As noted previously have a pelvic mass for which she will benefit from an outpatient pelvic ultrasound. Please schedule an appointment with your primary care provider later this week. Please return to the emergency department if develop worsening abdominal pain nausea or vomiting that does not stop. Please take your antibiotics as previously directed. Please call the general surgery clinic team if you have worsening abdominal pain and feel that you need to have any fluid drained from your abdomen, a paracentesis. Discharge Data Discharge Date/Time-TO BE ENTERED AT DEPARTURE: 01/29/23 16:03 Medical Decision Making This is a 77-year-old alcoholic female with recent diagnosis of C. difficile now with worsening abdominal pain concerning for complications secondary to C. difficile for which patient will undergo CT scan. She reportedly has been unable to tolerate p.o. as a result of nausea. She has not been vomiting. She has been having diarrhea every approximately hour for the past several days. She has not yet taken her antibiotics. She says that she last drank 2 days ago. She has never had to be intubated secondary to withdrawal from alcohol. She has had no fever to suggest spontaneous bacterial peritonitis. No chest pain to suggest ACS. No wheezes to suggest exacerbation of COPD. She has had shortness of breath but no significant cough nor fevers so I am not suspicious for pneumonia. No falls to suggest increased risk for pneumothorax. I considered PE however I feel that the patient's tachycardia is secondary to early withdrawal from ethanol given her last drink was 2 [address] patient on a CIWA protocol. We will check a lipase to assess for pancreatitis. Given alcohol history will obtain a magnesium level. No rash to abdomen to suggest zoster. Denies dysuria and frequency so not concern for pneumothorax. If patient's CTA is reassuring against any acute complication secondary to CHF she may benefit from a paracentesis but I do not feel that she requires this emergently. Will order patient's previously prescribed fidaxomicin. If patient has a reassuring CT and feels improved she may be appropriate for discharge but will have to pass a p.o. challenge. 12 PM Normal lipase comprehensive metabolic panel with mildly low BUN. Elevated T. bili similar to prior. Elevated LFTs similar to prior. Leukopenia similar to prior. Persistent macrocytic anemia. Mild thrombocytopenia. Mild hypomagnesemia for which patient will receive 2 mg IV magnesium. Negative ethanol [address] showed moderate volume low-attenuation ascites. Similar to prior. Colonic and rectal wall thickening similar to prior. Right pelvic mass patient will likely benefit from outpatient ultrasound. Will p.o. challenge for now. Pelvic mass has been noted before. 2:15 PM Patient has not taken her home medications and likely her tachycardia is secondary to lack of her beta-blockade. I ordered her home metoprolol in the ED. patient reports PCP follow-up in 3 days. I have asked asked health community development manager Wendy to have an outpatient pelvic ultrasound performed by her primary care for her pelvic mass. Patient has been seen in the past by general surgery for paracentesis. I advised her to call the general surgery team if she develops worsening abdominal pain. 3 PM Patient tolerated p.o. in the ED without emesis. Her heart rate improved. We will give her return indications. She did not score on CIWA protocol. Chronic conditions affecting the care of the patient: Alcohol abuse History obtained from an outside historian: Paramedics External record review: [facility] [place] Diagnostic interpretations performed by me: [Per my independent interpretation chest x-ray shows:] No acute cardiopulmonary process Per my independent interpretation EKG shows: Narrow complex sinus tachycardia at a rate of 104. Left axis deviation no signs of LVH based on voltage criteria in aVL. Intervals within normal limits. Biphasic T wave new in lead III. No ST segment abnormalities. No T wave inversions. Biphasic T wave in lead III new compared to prior. Prior dated last month. Medications: Fentanyl and ondansetron Social determinants of health affecting disposition: Chronic alcoholism Management discussed with: Aneglito Noble General surgery Treatment/interventions considered: Improved pain following acetaminophen Response to therapies provided: Improved following ingestion HPI General Date/Time Provider Initiated Documentation: 01/29/23 10:26. HPI Narrative: This is a 77-year-old female with recent diagnosis of C. difficile on fidaxomicin and history of Wernicke encephalopathy, recent hospitalization at [facility] in the setting of postprocedural right-sided pneumothorax, cirrhosis with ascites and hepatic encephalopathy now arriving via EMS in the setting of abdominal pain. Patient reportedly last had a drink 2 days ago. She feels as if she may be withdrawing. She denies any confusion. She has gone through withdrawal in the past but has never had to have an endotracheal tube placed. She reports drinking a small cup of whiskey every day. She denies tobacco. She feels worsening shortness of breath. She has been nauseous and had dry heaves but no vomiting. She has been having diarrhea every hour. She has not yet taken her outpatient antibiotics for C. difficile. She has had no recent falls. She denies fevers. She denies dysuria and frequency. She has not had any blood in her stool. Related Data Home Medications Medication Instructions Recorded Confirmed carboxymethylcellulose sodium 0.5 1 drp OU Q4H WHILE AWAKE #30 ea 06/20/19 01/29/23 % eye drops in a dropperette (Refresh Plus) lifitegrast 5 % eye drops in a 1 drp ophthalmic (eye) BID 08/05/20 01/29/23 dropperette (Xiidra) ipratropium 0.5 mg-albuterol 3 mg 3 ml inhalation Q6H PRN 12/25/21 01/29/23 (2.5 mg base)/3 mL nebulization soln albuterol sulfate 90 mcg/actuation 2 puff inhalation QID PRN 02/08/22 01/29/23 aerosol inhaler (Ventolin HFA) shortness of breath or wheezing #8.5 grams amlodipine 10 mg tablet 10 mg PO DAILY #90 tabs 02/08/22 01/29/23 buspirone 5 mg tablet 5 mg PO BID #60 tabs 02/08/22 01/29/23 folic acid 1 mg tablet 1 mg PO DAILY #90 tabs 02/08/22 01/29/23 melatonin 3 mg capsule 6 mg PO HS #180 caps 02/08/22 01/29/23 metoprolol tartrate 50 mg tablet 50 mg PO DAILY #90 tabs 02/08/22 01/29/23 mirtazapine 7.5 mg tablet 7.5 mg PO QHS #90 tabs 02/08/22 01/29/23 sucralfate 1 gram tablet 1 g PO BID #60 tabs 02/08/22 01/29/23 thiamine HCl (vitamin B1) 100 mg 100 mg PO DAILY #90 tabs 02/08/22 01/29/23 tablet valacyclovir 500 mg tablet 500 mg PO DAILY #90 tabs 02/08/22 01/29/23 (Valtrex) fluticasone propionate 50 2 spray NS daily prn #16 grams 03/06/22 01/29/23 mcg/actuation nasal spray,suspension budesonide 0.5 mg/2 mL suspension 0.5 mg (2 mL) inhalation DAILY #60 05/06/22 01/29/23 for nebulization (Pulmicort) mL pantoprazole 40 mg tablet,delayed 40 mg PO BID@0730,1999 #60 tabs 05/21/22 01/29/23 release cyanocobalamin (vitamin B-12) 500 1,000 mcg PO DAILY #180 tabs 07/10/22 01/29/23 mcg tablet (Vitamin B-12) ferrous sulfate 325 mg (65 mg 325 mg PO BID #180 tabs 07/10/22 01/29/23 iron) tablet multivitamin (Multiple Vitamins 1 tab PO DAILY #90 tabs 07/10/22 01/29/23 tablet) quetiapine 25 mg tablet See Rx Instructions PO BID #60 tabs 07/10/22 01/29/23 spironolactone 50 mg tablet 50 mg PO BID #180 tabs 07/10/22 01/29/23 (Aldactone) venlafaxine 75 mg capsule,extended 75 mg PO DAILY #90 caps 07/10/22 01/29/23 release 24 hr mirabegron 50 mg tablet,extended 50 mg PO DAILY #30 tabs 07/20/22 01/29/23 release 24 hr (Myrbetriq) aspirin 81 mg tablet,delayed 81 mg PO DAILY #90 tabs 08/05/22 01/29/23 release furosemide 20 mg tablet See Rx Instructions PO BID #180 08/11/22 01/29/23 tabs ondansetron HCl 4 mg tablet 4 mg PO Q6H PRN nausea and 12/11/22 01/29/23 vomiting #20 tabs lidocaine 5 % topical patch 2 patch topical Q24H #30 ea 01/13/23 01/29/23 loperamide 2 mg capsule 2 mg PO Q4H PRN PRN #12 caps 01/13/23 01/29/23 metronidazole 500 mg tablet 500 mg PO TID #30 tabs 01/13/23 01/29/23 fidaxomicin 200 mg tablet (Dificid) 200 mg PO Q12H #20 tabs 01/15/23 01/29/23 lorazepam 0.5 mg tablet 0.5 mg PO QHS PRN anxiety #20 tabs 01/15/23 01/29/23 magnesium oxide 400 mg PO BID #30 tabs 01/15/23 01/29/23 Previous Rx's Medication Instructions Recorded carboxymethylcellulose sodium 0.5 1 drp OU Q4H WHILE AWAKE #30 ea 06/20/19 % eye drops in a dropperette (Refresh Plus) albuterol sulfate 90 mcg/actuation 2 puff inhalation QID PRN 02/08/22 aerosol inhaler (Ventolin HFA) shortness of breath or wheezing #8.5 grams amlodipine 10 mg tablet 10 mg PO DAILY #90 tabs 02/08/22 buspirone 5 mg tablet 5 mg PO BID #60 tabs 02/08/22 folic acid 1 mg tablet 1 mg PO DAILY #90 tabs 02/08/22 melatonin 3 mg capsule 6 mg PO HS #180 caps 02/08/22 metoprolol tartrate 50 mg tablet 50 mg PO DAILY #90 tabs 02/08/22 mirtazapine 7.5 mg tablet 7.5 mg PO QHS #90 tabs 02/08/22 sucralfate 1 gram tablet 1 g PO BID #60 tabs 02/08/22 thiamine HCl (vitamin B1) 100 mg 100 mg PO DAILY #90 tabs 02/08/22 tablet valacyclovir 500 mg tablet 500 mg PO DAILY #90 tabs 02/08/22 (Valtrex) fluticasone propionate 50 2 spray NS daily prn #16 grams 03/06/22 mcg/actuation nasal spray,suspension budesonide 0.5 mg/2 mL suspension 0.5 mg (2 mL) inhalation DAILY #60 05/06/22 for nebulization (Pulmicort) mL pantoprazole 40 mg tablet,delayed 40 mg PO BID@07,1999 #60 tabs 05/21/22 release cyanocobalamin (vitamin B-12) 500 1,000 mcg PO DAILY #180 tabs 07/10/22 mcg tablet (Vitamin B-12) ferrous sulfate 325 mg (65 mg 325 mg PO BID #180 tabs 07/10/22 iron) tablet multivitamin (Multiple Vitamins 1 tab PO DAILY #90 tabs 07/10/22 tablet) quetiapine 25 mg tablet See Rx Instructions PO BID #60 tabs 07/10/22 spironolactone 50 mg tablet 50 mg PO BID #180 tabs 07/10/22 (Aldactone) venlafaxine 75 mg capsule,extended 75 mg PO DAILY #90 caps 07/10/22 release 24 hr mirabegron 50 mg tablet,extended 50 mg PO DAILY #30 tabs 07/20/22 release 24 hr (Myrbetriq) aspirin 81 mg tablet,delayed 81 mg PO DAILY #90 tabs 08/05/22 release furosemide 20 mg tablet See Rx Instructions PO BID #180 08/11/22 tabs ondansetron HCl 4 mg tablet 4 mg PO Q6H PRN nausea and 12/11/22 vomiting #20 tabs lidocaine 5 % topical patch 2 patch topical Q24H #30 ea 01/13/23 loperamide 2 mg capsule 2 mg PO Q4H PRN PRN #12 caps 01/13/23 metronidazole 500 mg tablet 500 mg PO TID #30 tabs 01/13/23 fidaxomicin 200 mg tablet (Dificid) 200 mg PO Q12H #20 tabs 01/15/23 lorazepam 0.5 mg tablet 0.5 mg PO QHS PRN anxiety #20 tabs 01/15/23 magnesium oxide 400 mg PO BID #30 tabs 01/15/23 Allergies Allergy/AdvReac Type Severity Reaction Status Date / Time Penicillins Allergy Mild Rash Verified 01/29/23 10:38 ramipril Allergy Unknown ITCHING Verified 01/29/23 10:38 meperidine [From Demerol] AdvReac Severe Nausea Verified 01/29/23 10:38 bupropion AdvReac Mild GI upset Verified 01/29/23 10:38 AMBER Inhibitors AdvReac Unknown COUGH Verified 01/29/23 10:38 alendronate sodium AdvReac Unknown GI Distress Verified 01/29/23 10:38 clarithromycin AdvReac Unknown intolerant Verified 01/29/23 10:38 paroxetine AdvReac Unknown Diarrhea Verified 01/29/23 10:38 General JORDAN: 3 PFSH All Active Problems (Updated 01/29/23 @ 14:19 by Clarence Heller MD) Abdominal pain (Acute) Leukopenia (Acute) Thrombocytopenia (Chronic) Hypomagnesemia (Acute) Elevated LFTs (Acute) Macrocytic anemia (Acute) Pelvic mass (Acute) Pneumothorax after biopsy (Acute) 01/19/23 Per [facility] CXR. -hb Soft tissue mass (Acute) 12/29/22 PET at [facility] Avid lobulated pre-sacral. -hb Hypomagnesemia (Acute) Clostridium difficile diarrhea (Acute) Hypokalemia (Acute) Alcohol abuse (Chronic) DVT prophylaxis (Acute) Multiple rib fractures (Chronic) 03/11/19 [facility] Alcohol withdrawal (Acute) Hypomagnesemia (Acute) Breast nodule (Acute) Sleep disturbance (Acute) Sinus tachycardia (Acute) High anion gap metabolic acidosis (Acute) Elevated blood pressure reading with diagnosis of hypertension (Acute) Pincer nail deformity (Acute) Insomnia (Acute) Thrombocytopenia (Chronic) Elevated bilirubin (Acute) Mixed stress and urge urinary incontinence (Acute) Thyroid nodule (Acute) Anxiety (Chronic) Adverse effect of metronidazole (Acute) Medication monitoring encounter (Acute) Advance care planning (Acute) Cirrhosis of liver with ascites (Acute) Animal bite of right hand with infection (Acute) Umbilical hernia (Acute) Hyperbilirubinemia (Acute) Shortness of breath (Acute) Elevated blood pressure reading without diagnosis of hypertension (Acute) Left arm pain (Acute) Ambulatory dysfunction (Acute) Incontinence (Acute) Anorexia (Acute) Headache (Acute) Depression (Chronic) Chest pain (Acute) Foot pain, right (Acute) Tendinitis of left rotator cuff (Acute) Macrocytosis (Acute 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 Leukopenia (Acute) Headache (Acute) Epigastric abdominal pain (Acute) Calcific tendinitis of left shoulder (Acute) Pulmonary mass (Acute) spiculated mass Pneumonia (Acute) Depression with suicidal ideation (Acute) Alcohol abuse (Chronic) Diarrhea (Acute) Epigastric pain (Acute) Dehydration (Acute) Discharge planning issues (Acute) Difficult intravenous access (Acute) Multiple IV attempts, usually requires ultrasound placement. PTSD (post-traumatic stress disorder) (Acute) Anemia (Chronic) Depression (Chronic) Foot pain, right (Acute) T12 compression fracture (Acute) Presacral mass (Chronic) Deviated nasal septum (Acute) Frequent falls (Chronic) Head injury (Acute) Ambulatory dysfunction (Chronic) Shoulder pain, right (Chronic) Suicidal ideation (Acute) Dry eye (Acute) Pruritus (Acute) Dystrophic nail (Acute) AMBER (acute kidney injury) (Acute) Iron deficiency anemia (Chronic) Fall (Acute) Atelectasis of left lung (Chronic) Advance directive on file (Acute) Nodule of upper lobe of right lung (Acute ~09/13/18) 01/19/23 Increased in size per [facility]. -hb 09/13/18 [facility]; 12mm SPICULATED -kb Cataract (Chronic 11/07/15) Hypertension (Chronic) high today; she will check readings at home Hyperlipidemia (Chronic) Back pain, chronic (Chronic) Depression (Chronic) Osteopenia (Chronic) Medical History Adjustment disorder with depressed mood Alcoholic ketosis Anemia Cervical radicular pain neck pain and [facility]D [facility] 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) pls refrain from alcohol Chronic alcoholism she will not stop drinking unless she checks with me, so that we can help her avert withdrawal I do not think she is capable on her own--she would need placement to achieve required goal of 3 months of sobriety Chronic diarrhea Closed right humeral fracture Corneal ulcer, right (~08/23/18) 08/23/18; [facility] Fracture of humerus, left, closed Genital herpes simplex recurrent gential; suppressive Valtrex GERD (gastroesophageal reflux disease) GI bleed (12/20/16) Hypertension Hypokalemia Hypokalemia Hypomagnesemia Incidental lung nodule, greater than or equal to 8mm 1cm, spiculated, stable for many years, recommend f/u in 6 mo Multiple rib fractures 03/11/19 [facility] Non-cardiac chest pain (09/21/16) [facility] 09/21/16 NEGATIVE MP Osteoarthritis Palliative care patient (03/21/17) Pancreatitis, alcoholic, acute Peripheral edema Photophobia of right eye Pleural effusion on left 03/11/19 [facility] Presacral mass (~09/15/18) 09/15/18 [facility] Sciatica right, epidural injuections [facility] Tubular adenoma of colon (01/28/17) Urinary incontinence 01/24/13 urethral suspension and sling at [facility] (bladder suspension 1991) 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 Bladder repair. Repair bladder injury, simple S/P laparoscopic cholecystectomy (~05/19/22) Family History Mother No problems noted. Father , DROWNED at age 50. No problems noted. Sister Personal history of malignant neoplasm MELANOMA Sister No problems noted. Grandfather Personal history of malignant neoplasm STOMACH Grandfather Personal history of malignant neoplasm PROSTATE Grandmother Heart disease PR Acute ill-defined cerebrovascular disease Grandmother Personal history of malignant neoplasm UTERINE Aunt , PR Heart disease PR Aunt , PR Heart disease Brother No problems noted. Social History Smoking/Tobacco Use Status: Former Tobacco Use Quit Date: 08/29/80 Smoking risk assessment performed?: Yes Alcohol Intake: current Alcohol Intake frequency: 3 or more drinks per day Alcohol type: hard liquor Drug use: Never Substance use type: does not use Details: Last alcoholic drink Mike zhong, 2 days ago Current gender identity: female Do you feel safe at home: Yes Do you feel safe in your relationship?: No Additional Social history: Has 1 dog, 4 cats. Exam Narrative Exam Narrative: General: Chronically ill-appearing in no acute distress speaking in complete sentences. Head: Normocephalic, atraumatic. Eye: Pupils equal, round reactive to light. Extraocular eye movements intact. No conjunctival injection. No scleral icterus. Ear, nose, mouth, throat: Grossly normal inspection. Normal voice, handling secretions normally. Neck: Trachea midline. Cardiovascular: Well-perfused distal extremities. Rapid regular rate. Respiratory: Nonlabored respiration.Decreased breath sounds bilateral bases. Gastrointestinal: Moderately distended abdomen. Soft with generalized tenderness. No rebound. No guarding. Musculoskeletal: No edema. Moving all 4 extremities spontaneously. Skin: Normal for age and race, grossly normal temperature and turgor. No acute rash. Neurologic: Alert and appropriate, no apparent acute deficits. Psychiatric: Mood and manner are appropriate. Grooming and personal hygiene are appropriate.
--- NOTE | 2023-01-29 10:45 | DI.CT_ITS ---
Exam(s) CT ABDOMEN PELVIS W EXAM: CT ABDOMEN PELVIS W CLINICAL HISTORY: Abdominal pain TECHNIQUE: Imaging Protocol: Axial computed tomography images with coronal and sagittal reformatted images were created and reviewed CONTRAST MATERIAL: Intravenous: Omnipaque 350 Contrast volume:100 mL Oral: None COMPARISON: CT CT ABDOMEN PELVIS W from 12/17/2019 FINDINGS: ABDOMEN: Lung Bases: Normal where visualized. There are multiple old rib bilateral rib fractures. Liver: There is diffuse decreased attenuation of the liver. The liver has a nodular contour suggesti ng hepatic cirrhosis. No measurable mass. There is a recanalized umbilical vein. Portal, Superior Mesenteric, and Splenic Veins: Unremarkable. Gallbladder and Biliary Tract: Status post cholecystectomy. No significant biliary ductal dilatation . Pancreas: Normal density, no abnormal calcifications or inflammatory process. Spleen: Mild splenomegaly. The tiny hypodensity in the anterior spleen is unchanged. Adrenals: There is stable nodularity of the left adrenal gland. The right adrenal gland is unremarka ble. Kidneys: Normal size, contour and axis. Bilateral nephrolithiasis. No hydronephrosis. There are sta ble bilateral renal nodules. These all appear stable when compared to prior examinations. Abdominal Aorta: Abdominal portion non-dilated. Atherosclerosis. Bowel: There is thickening of the wall of the cecum, ascending colon and proximal transverse colon. There is no evidence of bowel obstruction. There is no evidence of appendicitis. Peritoneal Cavity: There is a stable amount of abdominal pelvic ascites. The soft tissue mass in the presacral region is unchanged. No free air.There again seen several calcifications in the dependent portion of the pelvis. Lymph Nodes: Within normal limits. Bones: Within normal limits for the patient's age. There has been no significant change in appearanc e of the bones or alignment of the lumbar spine. Soft Tissues: Bilateral fat containing inguinal hernias and a small fat containing umbilical hernia. PELVIS: Bladder: Symmetric distention, no gross wall thickening. Reproductive Organs: Unremarkable as visualized. Lymph Nodes: Within normal limits. Bones: Within normal limits for the patient's age. IMPRESSION: 1. Findings of cirrhosis with portal hypertension. There is ascites and mild splenomegaly. 2. Colonic wall thickening which given the hepatic dysfunction could be related to portal enteropathy . 3. Stable presacral mass. RADIATION DOSE DELIVERED: 845.08mGy.cm Total DLP DATA REPOSITORY: All CT scans at this facility are submitted to the National Radiology Data Registry (NRDR) Dose Index Registry (DIR) with the [employer] ([employer]). RADIATION OPTIMIZATION: All CT scans at this facility use at least one of these dose optimization te chniques: automated exposure control; mA and/or kV adjustment per patient size (includes targeted exa ms where dose is matched to clinical indication); or iterative reconstruction.
--- NOTE | 2023-01-29 10:45 | RT.EKG_ITS ---
APPROVED REPORT Exam: Resting ECG Reason for Exam: Tachycardia Patient Location: E HR:104 bpm ECG Measurements Heart Rate 104 AXIS RI 185 P 40 QRSd 82 QRS -29 QT 347 T 12 QTc 459 Conclusion Sinus tachycardia...rate> 99 Narrow complex sinus tachycardia at a rate of 104. Left axis deviation no signs of LVH based on volt age criteria in aVL. Intervals within normal limits. Biphasic T wave new in lead III. No ST segmen t abnormalities. No T wave inversions. Biphasic T wave in lead III new compared to prior. Prior da mary last month.
--- NOTE | 2023-01-29 10:52 | DI.RAD_ITS ---
Exam(s) XR PORTABLE CHEST AP EXAM: XR PORTABLE CHEST AP CLINICAL HISTORY: Shortness of breath TECHNIQUE: 2D digital imaging was performed of the chest. One image was obtained. An AP view was ob tained. COMPARISON: CR,XR XR PORTABLE CHEST AP from 09/11/[address] CHEST/ABD/PEL W from 12/16/2022 FINDINGS: MEDIASTINUM: Normal. HEART: Normal. PULMONARY VASCULATURE: Normal. LUNGS: No focal consolidating infiltrates are seen. Stable opacity in the right lung apex. This is best appreciated on the CT scan from 12/16/2022. PLEURAL SPACE: No pleural effusion or pneumothorax. BONE:Within normal limits for the patient's age. Old deformities involving the clavicles and the prox imal right humerus. Old bilateral healed rib fractures. OTHER FINDINGS:Normal. IMPRESSION: No acute pulmonary findings. DATA REPOSITORY: RADIATION DOSE DELIVERED:
[2023-01-29 11:33] LABS: Abs Immature Grans 0.01 10^3/uL (0.0-0.06); Absolute Basophil Count 0.01 10^3/uL (0.0-0.2); Absolute Lymphocyte Count 0.43 10^3/uL (1.2-3.4); Absolute Monocyte Count 0.14 10^3/uL (0.1-0.8); Absolute Neutrophil Count 1.19 10^3/uL (1.2-6.7); Basophils % 0.6; HCT 28.1 % (36.0-46.0); HGB 9.3 g/dL (11.2-15.7); Immature Grans % 0.6; Lymphocytes % 24.2; MCH 34.3 pg (27.0-33.0); MCHC 33.1 % (32.0-36.0); MCV 104 fL (80-95); MPV 8.9 fL (8.0-11.0); Monocytes % 7.9; Neutrophils % 66.7; Platelet Count 116 10^3/uL (130-400); RBC 2.71 10^6/uL (3.93-5.22); RDW 16.3 % (11.7-14.6); RDW-SD 61.1 fL
[2023-01-29 11:40] LABS: WBC 1.78 10^3/uL (4.4-10.8)
[2023-01-29] MEDS: fentaNYL 100 MCG/2 ML VIAL 50 MCG IVP (11:40)
[2023-01-29] MEDS: ACETAMINOPHEN 1,000 MG/100 ML BTL 400 MG IVPB (11:40)
[2023-01-29] MEDS: Ondansetron 4 MG/2 ML VIAL IVP (11:40)
[2023-01-29] MEDS: Normal Saline 500 ML IV (11:41)
[2023-01-29] MEDS: Fidaxomicin 200 MG TAB PO (11:41)
[2023-01-29 11:51] LABS: ALT 12 U/L (14-59); AST 44 U/L (15-37); Albumin 3.3 g/dL (3.4-5.0); Alkaline Phosphatase 244 U/L (46-116); Anion Gap 13.3 mmol/L (3-11); BUN 5 mg/dL (7-18); Bilirubin, Total 1.7 mg/dL (0.2-1.0); CO2 24.7 mmol/L (21.0-32.0); CREATININE 0.8 mg/dL (0.55-1.02); Calcium 8.6 mg/dL (8.5-10.1); Chloride 100 mmol/L (98-107); Estimated GFR 76.31 (mL/min/1.73m2); Glucose 125 mg/dL (74-106); Lipase 58 U/L (16-77); Magnesium 1.3 mg/dL (1.8-2.4); Potassium 3.7 mmol/L (3.5-5.1); Sodium 138 mmol/L (136-145); Total Protein 6.5 g/dL (6.4-8.2)
[2023-01-29 11:53] LABS: ETHANOL BLOOD < 3.0 mg/dL (<10)
[2023-01-29 11:58] LABS: Anisocytosis 1+; Diff Comment Agrees w/ Instrument; Polychromasia Present
[2023-01-29] MEDS: Normal Saline Flush 10 ML SYR IVP (12:34)
[2023-01-29] MEDS: Normal Saline - Diluent 50 ML VIAL IJ (12:35)
[2023-01-29 12:50] LABS: COVID-19 PCR Negative (Negative); Influenza A PCR Negative (Negative); Influenza B PCR Negative (Negative); RSV PCR Negative (Negative)
[2023-01-29 13:01] LABS: Source Nasopharynx
--- NOTE | 2023-01-29 13:28 | DI.VRAD_ITS ---
PROCEDURE INFORMATION: Exam: XR Chest Exam date and time: 01/29/2023 12:55 PM Age: 77 years old Clinical indication: Shortness of breath TECHNIQUE: Imaging protocol: Radiologic exam of the chest. Views: 1 view. COMPARISON: CT CHEST/ABD/PEL W 12/16/2022 1:27 AM FINDINGS: Lungs: No pulmonary vascular congestion, pulmonary edema or pneumonia. Ill-defined opacity in the right upper lobe felt to correspond to the lesion described on the prior comparison exam. Pleural spaces: No pleural effusion or pneumothorax. Heart/Mediastinum: The cardiac silhouette is not enlarged. The mediastinal contours are normal. Bones/joints: Old posttraumatic changes involving the distal right clavicle and the proximal right humerus. Suspect either posttraumatic deformity of the distal left clavicle versus prior surgery. Bilateral old rib fractures. IMPRESSION: No pneumonia or pulmonary edema. Dictated and Authenticated by: Leland Mendoza MD. Ordering:CAMRON Lima MD
--- NOTE | 2023-01-29 13:41 | DI.VRAD_ITS ---
PROCEDURE INFORMATION: Exam: CT Abdomen And Pelvis With Contrast Exam date and time: 01/29/2023 12:40 PM Age: 77 years old Clinical indication: Abdominal pain TECHNIQUE: Imaging protocol: Computed tomography of the abdomen and pelvis with contrast. Radiation optimization: All CT scans at this facility use at least one of these dose optimization techniques: automated exposure control; mA and/or kV adjustment per patient size (includes targeted exams where dose is matched to clinical indication); or iterative reconstruction. Contrast material: OMNIPAQUE 350; Contrast volume: 100 ml; Contrast route: INTRAVENOUS (IV); COMPARISON: CT ABDOMEN PELVIS W 01/15/2023 8:59 AM FINDINGS: Liver: Nodular liver contour. This suggests cirrhosis. There may also be fatty change involving the liver parenchyma. Gallbladder and bile ducts: Prior cholecystectomy. No biliary ductal dilatation. Pancreas: No pancreatic mass. No peripancreatic inflammation. No pancreatic ductal dilation. Spleen: The spleen is enlarged. There is a tiny low-attenuation lesion in the anterior spleen. Adrenal glands: Nodular left adrenal gland. The right adrenal gland appears normal. Kidneys and ureters: Left nephrolithiasis. No hydronephrosis. Simple appearing renal cysts measuring up to approximally 3.2 cm in size. Stomach and bowel: Concentric wall thickening involving the colon and rectum which can be due portal enteropathy given the other findings. Appendix: No evidence of appendicitis. Intraperitoneal space: Moderate volume low-attenuation ascites. No pneumoperitoneum. Numerous small calcifications in the dependent portion of the peritoneal cavity in the pelvis. Vasculature: No abdominal aortic aneurysm. The mesenteric arteries are patent. The mesenteric, portal, and hepatic veins are patent. Recanalized umbilical vein. Lymph nodes: No enlarged lymph nodes. Urinary bladder: No urinary bladder calculus or wall thickening. Reproductive: There is a mixed attenuation right pelvic mass measuring approximally 8.5 cm in size. This has soft tissue and fat attenuation components. Bones/joints: No acute ossesous abnormality. Soft tissues: Fat containing right indirect inguinal hernia. Fat and fluid containing indirect left inguinal hernia. Bilateral subcutaneous body wall edema. IMPRESSION: 1. Cirrhosis. Portal hypertension. Splenomegaly. Ascites. Anasarca. 2. Colonic and rectal wall thickening which given the other findings can be due to portal enteropathy. 3. Mixed attenuation right pelvic mass. Ovarian dermoid/teratoma? Dictated and Authenticated by: Leland Mendoza MD. Ordering:CAMRON Lima MD
[2023-01-29] MEDS: MAGNESIUM SULFATE 2 GM/50 ML BAG IVPB (13:51)
[2023-01-29] MEDS: Ondansetron O.D.T. 4 MG TABEF PO (14:32)
[2023-01-29] MEDS: Metoprolol 50 MG TAB PO (14:33)
[2023-01-29] MEDS: LORazepam 0.5 MG TAB PO (14:33)
[2023-01-29] MEDS: Ibuprofen 200 MG TAB 400 MG PO (14:33)
--- NOTE | 2023-01-29 16:02 | NUR.NOTE ---
Nursing Note: Referral faxed to [facility] in [place] to James Galindo PCP for follow up with PCP in one week
--- NOTE | 2023-01-29 16:02 | NUR.NOTE ---
Nursing Note: patient was cleaned of BM and given new brief prior to DC by ELA
== END 2023-01-29 16:03 | disposition home or self-care (01) ==
PROVIDERS: Emergency Provider Emergency Medicine; PCP Family Medicine
DX: R10.9 Unspecified abdominal pain (principal); E83.42 Hypomagnesemia; D64.9 Anemia, unspecified; D69.6 Thrombocytopenia, unspecified; D72.829 Elevated white blood cell count, unspecified; R79.89 Other specified abnormal findings of blood chemistry; R19.00 Intra-abdominal and pelvic swelling, mass and lump, unspecified site
CPT/HCPCS: 36415; 80053; 83690; 87637; 93005; 96361; 96365; 96366; 96375; 99285; 71045; 74177; 80320; 83735; 85025; 93010; 99284; J0131; J2405; J3010

== ENCOUNTER 2023-02-05 14:33 | Emergency (ER) | payer MEDICARE, SELFPAY ==
[2023-02-05] VITALS (40 sets, daily range): BP systolic 111–168; BP diastolic 61–88; PULSE 96–110; RESP 16–37; TEMP 36.1; O2SAT 86–96
--- NOTE | 2023-02-05 14:30 | RT.EKG_ITS ---
APPROVED REPORT Exam: Resting ECG Reason for Exam: chest pain Patient Location: E HR:105 bpm ECG Measurements Heart Rate 105 AXIS NM 184 P 1 QRSd 86 QRS -31 QT 364 T -2 QTc 481 Conclusion Sinus tachycardia...rate> 99 Left axis deviation...QRS axis (-30,-90) Low voltage, precordial leads...precordial leads <1.0mV Narrow complex sinus tachycardia rate of 105. Left axis deviation no signs of LVH based on voltage c riteria in aVL. T wave inversion in lead III. T wave flattening in aVL leads V2, V3, III. Poor R w ave progression. Appears similar to prior dated last week. No acute injury pattern.
--- NOTE | 2023-02-05 14:42 | ED.GENADUL_ITS ---
Discharge Plan Disposition Patient Disposition: Home Discharge Details Clinical Impression: Hypokalemia, Iron deficiency anemia, Ambulatory dysfunction, Alcohol abuse, Clostridium difficile diarrhea Primary Care Provider: Lavelle Galindo ED Provider: Phillip Oneil Home Meds and New Rx's Prescriptions: No Action Xiidra 5 % dropperette 1 drp ophthalmic (eye) BID Rx Instructions: administer approximately 12 hours apart budesonide [Pulmicort] 0.5 mg/2 mL suspension for nebulization 0.5 mg inhalation DAILY Qty: 60 5RF Patient Comments: pt states meds come in blister pack labeled daily by [employer] and she takes them but doesn't know the names furosemide 20 mg tablet See Rx Instructions PO BID Qty: 180 3RF Patient Comments: pt states meds come in blister pack labeled daily by [employer] and she takes them but doesn't know the names Rx Instructions: orally twice a day; 3 tabs (60mg) in AM and 2 tabs(40mg in afternoon; ipratropium-albuterol 0.5 mg-3 mg(2.5 mg base)/3 mL solution for nebulization 3 ml inhalation Q6H PRN Patient Comments: pt states meds come in blister pack labeled daily by [employer] and she takes them but doesn't know the names Myrbetriq 50 mg tablet extended release 24 hr 50 mg PO DAILY Qty: 30 12RF albuterol sulfate [Ventolin HFA] 90 mcg/actuation HFA aerosol inhaler 2 puff inhalation QID PRN (Reason: shortness of breath or wheezing) Qty: 8.5 1RF amlodipine 10 mg tablet 10 mg PO DAILY Qty: 90 3RF Patient Comments: pt states meds come in blister pack labeled daily by [employer] and she takes them but doesn't know the names buspirone 5 mg tablet 5 mg PO BID Qty: 60 5RF Patient Comments: pt states meds come in blister pack labeled daily by [employer] and she takes them but doesn't know the names folic acid 1 mg tablet 1 mg PO DAILY Qty: 90 3RF Patient Comments: pt states meds come in blister pack labeled daily by [employer] and she takes them but doesn't know the names melatonin 3 mg capsule 6 mg PO HS Qty: 180 3RF Patient Comments: pt states meds come in blister pack labeled daily by [employer] and she takes them but doesn't know the names metoprolol tartrate 50 mg tablet 50 mg PO DAILY Qty: 90 3RF Patient Comments: pt states meds come in blister pack labeled daily by [employer] and she takes them but doesn't know the names mirtazapine 7.5 mg tablet 7.5 mg PO QHS Qty: 90 4RF Patient Comments: pt states meds come in blister pack labeled daily by [employer] and she takes them but doesn't know the names sucralfate 1 gram tablet 1 g PO BID Qty: 60 11RF Patient Comments: pt states meds come in blister pack labeled daily by [employer] and she takes them but doesn't know the names thiamine HCl (vitamin B1) 100 mg tablet 100 mg PO DAILY Qty: 90 3RF Patient Comments: pt states meds come in blister pack labeled daily by [employer] and she takes them but doesn't know the names valacyclovir [Valtrex] 500 mg tablet 500 mg PO DAILY Qty: 90 3RF Patient Comments: pt states meds come in blister pack labeled daily by [employer] and she takes them but doesn't know the names Rx Instructions: Take 500 mg BID for 3 days, then take daily cyanocobalamin (vitamin B-12) [Vitamin B-12] 500 mcg tablet 1,000 mcg PO DAILY Qty: 180 3RF Patient Comments: pt states meds come in blister pack labeled daily by [employer] and she takes them but doesn't know the names ferrous sulfate 325 mg (65 mg iron) tablet 325 mg PO BID Qty: 180 3RF Patient Comments: pt states meds come in blister pack labeled daily by [employer] and she takes them but doesn't know the names Rx Instructions: do not take within 2 hours of antibiotics multivitamin [Multiple Vitamins] Tablet 1 tab PO DAILY Qty: 90 3RF Patient Comments: pt states meds come in blister pack labeled daily by [employer] and she takes them but doesn't know the names quetiapine 25 mg tablet See Rx Instructions PO BID Qty: 60 5RF Patient Comments: pt states meds come in blister pack labeled daily by [employer] and she takes them but doesn't know the names Rx Instructions: 0.5 tab PO twice a day; spironolactone [Aldactone] 50 mg tablet 50 mg PO BID Qty: 180 3RF Patient Comments: pt states meds come in blister pack labeled daily by [employer] and she takes them but doesn't know the names venlafaxine 75 mg capsule,extended release 24hr 75 mg PO DAILY Qty: 90 3RF Hold Instructions: Home Medication placed on hold at Doctor's office Patient Comments: pt states meds come in blister pack labeled daily by [employer] and she takes them but doesn't know the names. aspirin 81 mg tablet,delayed release (DR/EC) 81 mg PO DAILY Qty: 90 3RF Patient Comments: pt states meds come in blister pack labeled daily by [employer] and she takes them but doesn't know the names ondansetron HCl 4 mg tablet 4 mg PO Q6H PRN (Reason: nausea and vomiting) Qty: 20 1RF lorazepam 0.5 mg tablet 0.5 mg PO QHS PRN (Reason: anxiety) Qty: 20 0RF fluticasone propionate 50 mcg/actuation spray,suspension 2 spray NS daily prn Qty: 16 5RF Patient Comments: pt states meds come in blister pack labeled daily by [employer] and she takes them but doesn't know the names carboxymethylcellulose sodium [Refresh Plus] 0.5 % Dropperette 1 drp OU Q4H WHILE AWAKE Qty: 30 0RF Patient Comments: pt states meds come in blister pack labeled daily by [employer] and she takes them but doesn't know the names pantoprazole 40 mg Tablet,Delayed Release (Dr/Ec) 40 mg PO BID@729,1999 Qty: 60 0RF Patient Comments: pt states meds come in blister pack labeled daily by [employer] and she takes them but doesn't know the names magnesium oxide 400 mg magnesium tablet 400 mg PO BID Qty: 30 0RF Dificid 200 mg tablet 200 mg PO Q12H Qty: 20 0RF loperamide 2 mg Capsule 2 mg PO Q4H PRN PRNQty: 12 0RF lidocaine 5 % Adhesive Patch,Medicated 2 patch topical Q24H Qty: 30 0RF metronidazole 500 mg tablet 500 mg PO TID Qty: 30 0RF Discharge Instructions Instructions: Hypokalemia (ED), Abuse of Alcohol (ED), Acute Diarrhea (ED), Anemia (ED) Additional Instructions: Please continue taking all your regular medications and follow-up your primary care doctor on Tuesday Discharge Data Discharge Date/Time-TO BE ENTERED AT DEPARTURE: 02/05/23 19:33 Medical Decision Making Patient is a pleasant 77-year-old female well-known to myself in the department, brought in via EMS, with chief complaint of persistent nausea, diarrhea, general malaise and poor p.o. intake. She denies any vomiting today. Patient is currently being treated for known C. difficile but states that she has not been taking her antibiotics secondary to GI upset. She was here recently for similar symptoms. Sounds like this has been persistent for her. She reports has been having some right-sided chest discomfort for the past month. 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 She had a biopsy in December but due to her poor overall baseline function was not felt to be a good surgical candidate. Patient was seen by [facility] oncology team on 02/02/2023. At that time, they discussed that she was poor surgical candidate but that she has want for curative therapy and plan for follow-up with primary care. On exam, patient appears chronically unwell but does not appear vastly changed from her baseline.Her lungs are clear, normal cardiac exam aside from mild tac hycardia with heart rate of 110. She is afebrile. Her abdomen is distended but no significant fluid wave to suggest ascites. She has no lower extremity edema. She is 2+ distal pulses in all of her extremities. She is mentating well. Primarily concern for acute on chronic nausea, vomiting and untreated C. difficile. While I find ACS unlikely, this is certainly on my differential particularly given her multitude of comorbidities. Patient certainly appears dehydrated we will begin IV hydration, offer Zofran. Notes her abdominal pain has worsened as has her distention, considered potential complication and will obtain imaging kidney function pending. Labs reviewed. Significant for white count of 1.9 which is baseline for the patient. Hemoglobin 9.3 which is baseline for the patient. CMP concerning for potassium of 3.2, given the nausea we will replace this IV. She does have an elevated anion gap 14.9. Creatinine 0.9. Mag is low at 1.2, replenish this as well. At the end of my shift, care transition to oncoming physician. HPI General Date/Time Provider Initiated Documentation: 02/05/23 14:40 . Limitations to Documentation: no limitations . Information obtained by: patient, EMS, RN notes reviewed and old records review ed . History of Present Illness 77 year old F presents to the emergency department with the chief complaint of abdominal bloating, nausea, vomiting, described as moderate and similar to prior episodes, and is localized to the abdomen. Patient reports no radiation. Patient started experiencing this unknown (patient has been here several times for similar, waxes/wanes, may be associated with ETOH) and it has been intermittent. No relieving factors improve symptom(s), Other factors that worsen symptoms (worse when no ETOH) . Patient notes chest pain (months), loss of appetite, malaise, nausea/vomiting and shortness of breath (chronic); denies diaphoresis, fever/chills and rash. Patient did receive the following treatments prior to arrival, none Related Data Home Medications Medication Instructions Recorded Confirmed carboxymethylcellulose sodium 0.5 1 drp OU Q4H WHILE AWAKE #30 ea 06/20/19 02/09/23 % eye drops in a dropperette (Refresh Plus) lifitegrast 5 % eye drops in a 1 drp ophthalmic (eye) BID 08/05/20 02/09/23 dropperette (Xiidra) ipratropium 0.5 mg-albuterol 3 mg 3 ml inhalation Q6H PRN 12/25/21 02/09/23 (2.5 mg base)/3 mL nebulization soln albuterol sulfate 90 mcg/actuation 2 puff inhalation QID PRN 02/08/22 02/09/23 aerosol inhaler (Ventolin HFA) shortness of breath or wheezing #8.5 grams amlodipine 10 mg tablet 10 mg PO DAILY #90 tabs 02/08/22 02/09/23 buspirone 5 mg tablet 5 mg PO BID #60 tabs 02/08/22 02/09/23 folic acid 1 mg tablet 1 mg PO DAILY #90 tabs 02/08/22 02/09/23 melatonin 3 mg capsule 6 mg PO HS #180 caps 02/08/22 02/09/23 metoprolol tartrate 50 mg tablet 50 mg PO DAILY #90 tabs 02/08/22 02/09/23 mirtazapine 7.5 mg tablet 7.5 mg PO QHS #90 tabs 02/08/22 02/09/23 sucralfate 1 gram tablet 1 g PO BID #60 tabs 02/08/22 02/09/23 thiamine HCl (vitamin B1) 100 mg 100 mg PO DAILY #90 tabs 02/08/22 02/09/23 tablet valacyclovir 500 mg tablet 500 mg PO DAILY #90 tabs 02/08/22 02/09/23 (Valtrex) budesonide 0.5 mg/2 mL suspension 0.5 mg (2 mL) inhalation DAILY #60 05/06/22 02/09/23 for nebulization (Pulmicort) mL pantoprazole 40 mg tablet,delayed 40 mg PO BID@0730,1999 #60 tabs 05/21/22 02/09/23 release cyanocobalamin (vitamin B-12) 500 1,000 mcg PO DAILY #180 tabs 07/10/22 02/09/23 mcg tablet (Vitamin B-12) ferrous sulfate 325 mg (65 mg 325 mg PO BID #180 tabs 07/10/22 02/09/23 iron) tablet multivitamin (Multiple Vitamins 1 tab PO DAILY #90 tabs 07/10/22 02/09/23 tablet) quetiapine 25 mg tablet See Rx Instructions PO BID #60 tabs 07/10/22 02/09/23 spironolactone 50 mg tablet 50 mg PO BID #180 tabs 07/10/22 02/09/23 (Aldactone) venlafaxine 75 mg capsule,extended 75 mg PO DAILY #90 caps 07/10/22 02/09/23 release 24 hr mirabegron 50 mg tablet,extended 50 mg PO DAILY #30 tabs 07/20/22 02/09/23 release 24 hr (Myrbetriq) aspirin 81 mg tablet,delayed 81 mg PO DAILY #90 tabs 08/05/22 02/09/23 release furosemide 20 mg tablet See Rx Instructions PO BID #180 08/11/22 02/09/23 tabs lidocaine 5 % topical patch 2 patch topical Q24H #30 ea 05/18/23 06/14/23 loperamide 2 mg capsule 2 mg PO Q4H PRN PRN #12 caps 01/13/23 02/09/23 metronidazole 500 mg tablet 500 mg PO TID #30 tabs 01/13/23 02/09/23 fidaxomicin 200 mg tablet (Dificid) 200 mg PO Q12H #20 tabs 01/15/23 02/09/23 magnesium oxide 400 mg PO BID #30 tabs 01/15/23 02/09/23 lorazepam 0.5 mg tablet 0.5 mg PO QHS PRN anxiety #20 tabs 02/02/23 02/09/23 ondansetron HCl 4 mg tablet 4 mg PO Q6H PRN nausea and 02/02/23 02/09/23 vomiting #20 tabs fluticasone propionate 50 2 spray NS daily prn #16 grams 02/03/23 02/09/23 mcg/actuation nasal spray,suspension Previous Rx's Medication Instructions Recorded carboxymethylcellulose sodium 0.5 1 drp OU Q4H WHILE AWAKE #30 ea 06/20/ % eye drops in a dropperette (Refresh Plus) albuterol sulfate 90 mcg/actuation 2 puff inhalation QID PRN 02/08/22 aerosol inhaler (Ventolin HFA) shortness of breath or wheezing #8.5 grams amlodipine 10 mg tablet 10 mg PO DAILY #90 tabs 02/08/22 buspirone 5 mg tablet 5 mg PO BID #60 tabs 02/08/22 folic acid 1 mg tablet 1 mg PO DAILY #90 tabs 02/08/22 melatonin 3 mg capsule 6 mg PO HS #180 caps 02/08/22 metoprolol tartrate 50 mg tablet 50 mg PO DAILY #90 tabs 02/08/22 mirtazapine 7.5 mg tablet 7.5 mg PO QHS #90 tabs 02/08/22 sucralfate 1 gram tablet 1 g PO BID #60 tabs 02/08/22 thiamine HCl (vitamin B1) 100 mg 100 mg PO DAILY #90 tabs 02/08/22 tablet valacyclovir 500 mg tablet 500 mg PO DAILY #90 tabs 02/08/22 (Valtrex) budesonide 0.5 mg/2 mL suspension 0.5 mg (2 mL) inhalation DAILY #60 05/06/22 for nebulization (Pulmicort) mL pantoprazole 40 mg tablet,delayed 40 mg PO BID@0730,1999 #60 tabs 05/21/22 release cyanocobalamin (vitamin B-12) 500 1,000 mcg PO DAILY #180 tabs 07/10/22 mcg tablet (Vitamin B-12) ferrous sulfate 325 mg (65 mg 325 mg PO BID #180 tabs 07/10/22 iron) tablet multivitamin (Multiple Vitamins 1 tab PO DAILY #90 tabs 07/10/22 tablet) quetiapine 25 mg tablet See Rx Instructions PO BID #60 tabs 07/10/22 spironolactone 50 mg tablet 50 mg PO BID #180 tabs 07/10/22 (Aldactone) venlafaxine 75 mg capsule,extended 75 mg PO DAILY #90 caps 07/10/22 release 24 hr mirabegron 50 mg tablet,extended 50 mg PO DAILY #30 tabs 07/20/22 release 24 hr (Myrbetriq) aspirin 81 mg tablet,delayed 81 mg PO DAILY #90 tabs 08/05/22 release furosemide 20 mg tablet See Rx Instructions PO BID #180 08/11/22 tabs lidocaine 5 % topical patch 2 patch topical Q24H #30 ea 01/13/23 loperamide 2 mg capsule 2 mg PO Q4H PRN PRN #12 caps 01/13/23 metronidazole 500 mg tablet 500 mg PO TID #30 tabs 01/13/23 fidaxomicin 200 mg tablet (Dificid) 200 mg PO Q12H #20 tabs 01/15/23 magnesium oxide 400 mg PO BID #30 tabs 01/15/23 lorazepam 0.5 mg tablet 0.5 mg PO QHS PRN anxiety #20 tabs 02/02/23 ondansetron HCl 4 mg tablet 4 mg PO Q6H PRN nausea and 02/02/23 vomiting #20 tabs fluticasone propionate 50 2 spray NS daily prn #16 grams 02/03/23 mcg/actuation nasal spray,suspension Allergies Allergy/AdvReac Type Severity Reaction Status Date / Time Penicillins Allergy Mild Rash Verified 02/09/23 11:38 ramipril Allergy Unknown ITCHING Verified 02/09/23 11:38 meperidine [From Demerol] AdvReac Severe Nausea Verified 02/09/23 11:38 bupropion AdvReac Mild GI upset Verified 02/09/23 11:38 AMBER Inhibitors AdvReac Unknown COUGH Verified 02/09/23 11:38 alendronate sodium AdvReac Unknown GI Distress Verified 02/09/23 11:38 clarithromycin AdvReac Unknown intolerant Verified 02/09/23 11:38 paroxetine AdvReac Unknown Diarrhea Verified 02/09/23 11:38 General Stated Complaint: Nausea/Vomit/Diar JORDAN: 3 Review of Systems Constitutional Constitutional: Reports as per HPI and Denies chills Cardiovascular Cardiovascular: Reports as per HPI Respiratory Respiratory: Reports as per HPI Gastrointestinal Gastrointestinal: Reports as per HPI Musculoskeletal Musculoskeletal: Reports as per HPI and Denies back pain Integumentary/Breasts Skin/Breast: Reports as per HPI and Denies rash Neurologic Neurologic: Reports as per HPI PFS All Active Problems (Updated 02/05/23 @ 18:10 by Phillip Oneil MD) Abdominal pain (Acute) Leukopenia (Acute) Thrombocytopenia (Chronic) Hypomagnesemia (Acute) Elevated LFTs (Acute) Macrocytic anemia (Acute) Pelvic mass (Acute) Pneumothorax after biopsy (Acute) 01/19/23 Per [facility] CXR. -hb Soft tissue mass (Acute) 12/29/22 PET at [facility] Avid lobulated pre-sacral. -hb Hypomagnesemia (Acute) Clostridium difficile diarrhea (Acute) Hypokalemia (Acute) Alcohol abuse (Chronic) DVT prophylaxis (Acute) Multiple rib fractures (Chronic) 03/11/19 [facility] Alcohol withdrawal (Acute) Hypomagnesemia (Acute) Breast nodule (Acute) Sleep disturbance (Acute) Sinus tachycardia (Acute) High anion gap metabolic acidosis (Acute) Elevated blood pressure reading with diagnosis of hypertension (Acute) Pincer nail deformity (Acute) Insomnia (Acute) Thrombocytopenia (Chronic) Elevated bilirubin (Acute) Mixed stress and urge urinary incontinence (Acute) Thyroid nodule (Acute) Anxiety (Chronic) Adverse effect of metronidazole (Acute) Medication monitoring encounter (Acute) Advance care planning (Acute) Cirrhosis of liver with ascites (Acute) Animal bite of right hand with infection (Acute) Umbilical hernia (Acute) Hyperbilirubinemia (Acute) Shortness of breath (Acute) Elevated blood pressure reading without diagnosis of hypertension (Acute) Left arm pain (Acute) Ambulatory dysfunction (Acute) Incontinence (Acute) Anorexia (Acute) Headache (Acute) Depression (Chronic) Chest pain (Acute) Foot pain, right (Acute) Tendinitis of left rotator cuff (Acute) Macrocytosis (Acute 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 Leukopenia (Acute) Headache (Acute) Epigastric abdominal pain (Acute) Calcific tendinitis of left shoulder (Acute) Pulmonary mass (Acute) spiculated mass Pneumonia (Acute) Depression with suicidal ideation (Acute) Alcohol abuse (Chronic) Diarrhea (Acute) Epigastric pain (Acute) Dehydration (Acute) Discharge planning issues (Acute) Difficult intravenous access (Acute) Multiple IV attempts, usually requires ultrasound placement. PTSD (post-traumatic stress disorder) (Acute) Anemia (Chronic) Depression (Chronic) Foot pain, right (Acute) T12 compression fracture (Acute) Presacral mass (Chronic) Deviated nasal septum (Acute) Frequent falls (Chronic) Head injury (Acute) Ambulatory dysfunction (Chronic) Shoulder pain, right (Chronic) Suicidal ideation (Acute) Dry eye (Acute) Pruritus (Acute) Dystrophic nail (Acute) AMBER (acute kidney injury) (Acute) Iron deficiency anemia (Chronic) Fall (Acute) Atelectasis of left lung (Chronic) Advance directive on file (Acute) Nodule of upper lobe of right lung (Acute ~09/13/18) 01/19/23 Increased in size per [facility]. 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) pls refrain from alcohol Chronic alcoholism she will not stop drinking unless she checks with me, so that we can help her avert withdrawal I do not think she is capable on her own--she would need placement to achieve required goal of 3 months of sobriety Chronic diarrhea Closed right humeral fracture Corneal ulcer, right (~08/23/18) 08/23/18; [facility] Fracture of humerus, left, closed Genital herpes simplex recurrent gential; suppressive Valtrex GERD (gastroesophageal reflux disease) GI bleed (12/20/16) Hypertension Hypokalemia Hypokalemia Hypomagnesemia Incidental lung nodule, greater than or equal to 8mm 1cm, spiculated, stable for many years, recommend f/u in 6 mo Multiple rib fractures 03/11/19 [facility] Non-cardiac chest pain (09/21/16) [facility] 09/21/16 NEGATIVE MP Osteoarthritis Palliative care patient (03/21/17) Pancreatitis, alcoholic, acute Peripheral edema Photophobia of right eye Pleural effusion on left 03/11/19 [facility] Presacral mass (~09/15/18) 09/15/18 [facility] Sciatica right, epidural injuections [facility] Tubular adenoma of colon (01/28/17) Urinary incontinence 01/24/13 urethral suspension and sling at [facility] (bladder suspension 1991) 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 Bladder repair. Repair bladder injury, simple S/P laparoscopic cholecystectomy (~05/19/22) Family History Mother No problems noted. Father , DROWNED at age 50. No problems noted. Sister Personal history of malignant neoplasm MELANOMA Sister No problems noted. Grandfather Personal history of malignant neoplasm STOMACH Grandfather Personal history of malignant neoplasm PROSTATE Grandmother Heart disease [place] Acute ill-defined cerebrovascular disease Grandmother Personal history of malignant neoplasm UTERINE Aunt , [place] Heart disease [place] Aunt , [place] Heart disease Brother No problems noted. Social History Smoking/Tobacco Use Status: Former Tobacco Use Quit Date: 08/29/80 Smoking risk assessment performed?: Yes Alcohol Intake: current Alcohol Intake frequency: 3 or more drinks per day Alcohol type: hard liquor Drug use: Never Substance use type: does not use Details: Last alcoholic drink Mike zhong, 2 days ago Current gender identity: female Do you feel safe at home: Yes Do you feel safe in your relationship?: No Additional Social history: Has 1 dog, 4 cats. Exam Const General: cooperative, comfortable, no acute distress and ill appearing chronically Nutritional Appearance: average body habitus Orientation: alert, awake and oriented x3 HENMT Head: normal to inspection Mouth: mucous membranes dry (appears dry) Resp Effort & Inspection: normal respiratory effort, able to speak in complete sentences and no respiratory distress Auscultation: clear to auscultation bilaterally, no rales, no rhonchi and no wheezes Cardio Rate: regular rate Rhythm: regular rhythm Heart Sounds: S1 normal and S2 normal GI Inspection: distended Palpation: soft, no guarding, hepatomegaly, no pulsatile masses, not rigid, tender (diffusely tender, no focal pain) and ascites Percussion: dullness to percussion and fluid wave Auscultation: hypoactive bowel sounds Back/Spine/Pelvis Back: no CVA tenderness Skin General skin exam: no rashes or lesions noted Trauma: no lacerations or abrasions Neuro General: patient alert and patient awake Cognition: normal cognition Speech: speech normal Extrem General: normal to inspection, capillary refill normal, no pedal edema and no calf tenderness Psych Appearance: grossly normal and disheveled Mental Status: mental status grossly normal Speech and Movement: speech and movement normal Course Vital Signs Vital signs: Vital Signs Temperature 36.1 C L 02/05/23 14:32 Pulse 110 H 02/05/23 14:32 Respiratory Rate 18 02/05/23 14:32 Blood Pressure 143/79 H 02/05/23 14:32 Pulse Oximetry 93 02/05/23 14:32 Temperature 36.1 C L 02/05/23 14:32 Temperature Source Skin 02/05/23 14:32 Pulse 110 H 02/05/23 14:32 Respiratory Rate 18 02/05/23 14:32 Blood Pressure 143/79 H 02/05/23 14:32 Pulse Oximetry 93 02/05/23 14:32 Oxygen Delivery Method Room Air 02/05/23 14:32 Oxygen Flow Rate 0 02/05/23 14:32 Pain Level 7 02/05/23 14:32 Sign Out Sign Out Data: Sign Out Comment: Care transition to Dr. Oneil with imaging and reevaluation pending. Patient noted to be hypokalemic, hypomagnesemic. These are being replenished IV. Here with nausea, dehydration, general unwell. We will also give thiamine given chronic alcohol state. Does have small amount of alcohol on board. Abdomen pain has been increasing as her abdomen has also become more distended. Last updated by Tash Servin PA at 02/05/23 16:00
[2023-02-05] MEDS: Lactated Ringers 1,000 ML 500 ML IV (15:04)
[2023-02-05] MEDS: Ondansetron 4 MG/2 ML VIAL IVP (15:04)
[2023-02-05 15:08] LABS: Abs Immature Grans 0.02 10^3/uL (0.0-0.06); Absolute Basophil Count 0.01 10^3/uL (0.0-0.2); Absolute Monocyte Count 0.32 10^3/uL (0.1-0.8); Absolute Neutrophil Count 1.06 10^3/uL (1.2-6.7); Basophils % 0.5; HCT 28.3 % (36.0-46.0); HGB 9.3 g/dL (11.2-15.7); Lymphocytes % 26.2; MCH 33.7 pg (27.0-33.0); MCHC 32.9 % (32.0-36.0); MCV 103 fL (80-95); MPV 8.2 fL (8.0-11.0); Monocytes % 16.8; Neutrophils % 55.5; Platelet Count 127 10^3/uL (130-400); RBC 2.76 10^6/uL (3.93-5.22); RDW 17.3 % (11.7-14.6); RDW-SD 64.5 fL
[2023-02-05 15:27] LABS: Lipase 35 U/L (16-77)
[2023-02-05 15:29] LABS: WBC 1.91 10^3/uL (4.4-10.8)
[2023-02-05 15:30] LABS: ALT 12 U/L (14-59); AST 45 U/L (15-37); Albumin 3.3 g/dL (3.4-5.0); Alkaline Phosphatase 212 U/L (46-116); Anion Gap 14.9 mmol/L (3-11); Anisocytosis 2+; BUN 10 mg/dL (7-18); Bilirubin, Total 1.5 mg/dL (0.2-1.0); CO2 25.1 mmol/L (21.0-32.0); CREATININE 0.9 mg/dL (0.55-1.02); Calcium 8.8 mg/dL (8.5-10.1); Chloride 97 mmol/L (98-107); Diff Comment Diff Reviewed; ETHANOL BLOOD 70.9 mg/dL (<10); Estimated GFR 66.26 (mL/min/1.73m2); Glucose 113 mg/dL (74-106); Magnesium 1.2 mg/dL (1.8-2.4); Polychromasia Present; Potassium 3.2 mmol/L (3.5-5.1); Sodium 137 mmol/L (136-145); Total Protein 6.7 g/dL (6.4-8.2); Troponin I < 50 ng/L (<or=60)
--- NOTE | 2023-02-05 15:45 | DI.CT_ITS ---
Exam(s) CT ABDOMEN PELVIS W EXAM: CT ABDOMEN PELVIS W CLINICAL HISTORY: upper abdominal pain, RUQ TECHNIQUE: Imaging Protocol: Axial computed tomography images with coronal and sagittal reformatted images were created and reviewed CONTRAST MATERIAL: Intravenous: Omnipaque 350 Contrast volume:100 mL Oral: yes / no COMPARISON: CT CT ABDOMEN PELVIS W from 01/29/2023 FINDINGS: ABDOMEN: Lung Bases: Mild dependent atelectasis. Liver: There is a cirrhotic liver and portal hypertension. It is of decreased attenuation. No suspi cious hepatic masses are seen. There has been no stone stripper opaquer appearance of the liver since the prior e xaminations. Portal, Superior Mesenteric, and Splenic Veins: Unremarkable. Gallbladder and Biliary Tract: Status post cholecystectomy. Stable bile ducts. Pancreas: Normal density, no abnormal calcifications or inflammatory process. Spleen: Splenomegaly. Adrenals: Stable adrenal glands. Kidneys: Normal size, contour and axis. No radiodense stones or obstructive uropathy. Stable cysts. No follow-up. Abdominal Aorta: Abdominal portion non-dilated. Atherosclerosis. Bowel: No obstruction or bowel wall thickening. Appendix is unremarkable. Peritoneal Cavity: Stable abdominal ascites. No free air.Stable peritoneal mass anterior to the sacr um. Lymph Nodes: Within normal limits. Bones: Within normal limits for the patient's age. Old healed rib fractures. Soft Tissues: Soft tissue edema suggesting anasarca. Stable bilateral fat containing inguinal hernia s with a small amount of fluid in the left inguinal hernia. PELVIS: Bladder: Symmetric distention, no gross wall thickening. Reproductive Organs: Unremarkable as visualized. Lymph Nodes: Within normal limits. Bones: Within normal limits for the patient's age. IMPRESSION: 1. No acute abdominal or pelvic process. 2. Stable findings in the abdomen and pelvis. RADIATION DOSE DELIVERED: 1,109.92mGy.cm Total DLP DATA REPOSITORY: All CT scans at this facility are submitted to the National Radiology Data Registry (NRDR) Dose Index Registry (DIR) with the [employer] ([employer]). RADIATION OPTIMIZATION: All CT scans at this facility use at least one of these dose optimization te chniques: automated exposure control; mA and/or kV adjustment per patient size (includes targeted exa ms where dose is matched to clinical indication); or iterative reconstruction.
[2023-02-05] MEDS: POTASSIUM CHLORIDE 20 MEQ/100 ML BAG 50 MEQ IVPB (16:06)
[2023-02-05] MEDS: MAGNESIUM SULFATE 1 GM/100 ML BAG IVPB (16:06)
[2023-02-05] MEDS: THIAMINE 100 MG in Normal Saline 100 ML 200 MG IVPB (16:06)
[2023-02-05] MEDS: MORPHine 4 MG/ML SYR IVP (16:07)
[2023-02-05] MEDS: Vancomycin 125 MG CAP PO (16:36)
[2023-02-05] MEDS: Omnipaque 350 MG/ML 100 ML BTL IJ (16:40)
[2023-02-05] MEDS: Normal Saline - Diluent 50 ML VIAL IJ (16:41)
--- NOTE | 2023-02-05 16:53 | NUR.NOTE ---
Nursing Note:Number to MANUEL, called ED stated that she would transport Leticia after discharge
[2023-02-05 17:36] LABS: Bilirubin Negative (Negative); Blood Negative (Negative); Clarity Clear (Clear); Glucose Negative (Negative); Ketones 40 mg/dL (Negative); Leukocyte Esterase Negative (Negative); Nitrite Negative (Negative); Specific Gravity <= 1.005 (1.005-1.025)
[2023-02-05 17:45] LABS: Bacteria Moderate HPF (Negative); C & S Indicated? Yes; Casts Negative LPF (Negative); Crystals Negative HPF (Negative); Epithelial Cells Rare HPF (Negative); Mucus Negative (Negative); RBC 0-2 HPF (0-2); WBC 0-2 HPF (0-5)
--- NOTE | 2023-02-05 17:48 | DI.VRAD_ITS ---
PROCEDURE INFORMATION: Exam: CT Abdomen And Pelvis With Contrast Exam date and time: 02/05/2023 4:44 PM Age: 77 years old Clinical indication: Other: Upper abd pain ruq TECHNIQUE: Imaging protocol: Computed tomography of the abdomen and pelvis with contrast. Contrast material: 350; Contrast volume: 100 ml; Contrast route: INTRAVENOUS (IV); COMPARISON: CT ABDOMEN PELVIS W 11/01/2022 12:40 FINDINGS: Lungs: Bibasilar reticular markings consistent with scar versus atelectasis. Heart: Cardiomegaly. Coronary arteries: Calcified coronary arteries. Liver: Nodular liver contour consistent with cirrhosis. Gallbladder and bile ducts: Cholecystectomy. Pancreas: Normal. No ductal dilation. Spleen: Splenomegaly. Adrenal glands: Again noted nodular left adrenal gland. Kidneys and ureters: Stable bilateral renal cysts. Stable perirenal fat infiltration. Left nephrolithiasis without hydronephrosis. Contracted colon and small bowel. Stomach and bowel: Unremarkable. No obstruction. No mucosal thickening. Appendix: No evidence of appendicitis. The appendix is not identified. Intraperitoneal space: Ascites. Vasculature: Atherosclerotic disease. Lymph nodes: Unremarkable. No enlarged lymph nodes. Urinary bladder: Unremarkable as visualized. Reproductive: In the right posterior pelvis series 4, image 72 there is the soft tissue 9.4 cm fat containing mass that appears to correspond to the right ovary adjacent to the rectum and sigmoid colon. The mass similar to the prior study January 29, 2023. Bones/joints: Multilevel degenerative scoliotic changes of the spine. Multiple age indeterminate bilateral rib fractures. Soft tissues: Fat distension of the inguinal canals. Ascites is extending into the left inguinal canal. Anasarca. IMPRESSION: 1. 9.4 cm fat containing mass corresponding to the right ovary as discussed above. Recommend further evaluation with ultrasound and pelvic MRI. 2. Cirrhotic liver. Ascites. Splenomegaly. 3. Multiple additional findings as discussed above. Dictated and Authenticated by: Elizabeth Granger MD. Ordering:BECKIE Bianchi MD
--- NOTE | 2023-02-05 18:05 | W.EDPROG ---
Date of service: 02/05/23 Time of Service: 20:12 Medical Decision Making Signout received early on this patient. Labs are pending as well as CT scan of the abdomen pelvis Labs are at baseline except for recurrent hypomagnesemia and hypokalemia. Both these electrolytes were replaced. Patient was given some IV fluids. UA no infection CT scan given pelvis ordered by my colleague earlier does not reveal any acute findings. Results reviewed with the patient. She will be discharged home. Sign Out Sign Out Data: Sign Out Comment: Care transition to Dr. Oneil with imaging and reevaluation pending. Patient noted to be hypokalemic, hypomagnesemic. These are being replenished IV. Here with nausea, dehydration, general unwell. We will also give thiamine given chronic alcohol state. Does have small amount of alcohol on board. Abdomen pain has been increasing as her abdomen has also become more distended. Last updated by Tash Servin PA at 02/05/23 16:00 Discharge Plan Disposition Patient Disposition: Home Discharge Details Clinical Impression: Hypokalemia, Iron deficiency anemia, Ambulatory dysfunction, Alcohol abuse, Clostridium difficile diarrhea Primary Care Provider: Lavelle Galindo ED Provider: Phillip Oneil Home Meds and New Rx's Prescriptions: No Action Xiidra 5 % dropperette 1 drp ophthalmic (eye) BID Rx Instructions: administer approximately 12 hours apart budesonide [Pulmicort] 0.5 mg/2 mL suspension for nebulization 0.5 mg inhalation DAILY Qty: 60 5RF Patient Comments: pt states meds come in blister pack labeled daily by [employer] and she takes them but doesn't know the names furosemide 20 mg tablet See Rx Instructions PO BID Qty: 180 3RF Patient Comments: pt states meds come in blister pack labeled daily by [employer] and she takes them but doesn't know the names Rx Instructions: orally twice a day; 3 tabs (60mg) in AM and 2 tabs(40mg in afternoon; ipratropium-albuterol 0.5 mg-3 mg(2.5 mg base)/3 mL solution for nebulization 3 ml inhalation Q6H PRN Patient Comments: pt states meds come in blister pack labeled daily by [employer] and she takes them but doesn't know the names Myrbetriq 50 mg tablet extended release 24 hr 50 mg PO DAILY Qty: 30 12RF albuterol sulfate [Ventolin HFA] 90 mcg/actuation HFA aerosol inhaler 2 puff inhalation QID PRN (Reason: shortness of breath or wheezing) Qty: 8.5 1RF amlodipine 10 mg tablet 10 mg PO DAILY Qty: 90 3RF Patient Comments: pt states meds come in blister pack labeled daily by [employer] and she takes them but doesn't know the names buspirone 5 mg tablet 5 mg PO BID Qty: 60 5RF Patient Comments: pt states meds come in blister pack labeled daily by [employer] and she takes them but doesn't know the names folic acid 1 mg tablet 1 mg PO DAILY Qty: 90 3RF Patient Comments: pt states meds come in blister pack labeled daily by [employer] and she takes them but doesn't know the names melatonin 3 mg capsule 6 mg PO HS Qty: 180 3RF Patient Comments: pt states meds come in blister pack labeled daily by [employer] and she takes them but doesn't know the names metoprolol tartrate 50 mg tablet 50 mg PO DAILY Qty: 90 3RF Patient Comments: pt states meds come in blister pack labeled daily by [employer] and she takes them but doesn't know the names mirtazapine 7.5 mg tablet 7.5 mg PO QHS Qty: 90 4RF Patient Comments: pt states meds come in blister pack labeled daily by [employer] and she takes them but doesn't know the names sucralfate 1 gram tablet 1 g PO BID Qty: 60 11RF Patient Comments: pt states meds come in blister pack labeled daily by [employer] and she takes them but doesn't know the names thiamine HCl (vitamin B1) 100 mg tablet 100 mg PO DAILY Qty: 90 3RF Patient Comments: pt states meds come in blister pack labeled daily by [employer] and she takes them but doesn't know the names valacyclovir [Valtrex] 500 mg tablet 500 mg PO DAILY Qty: 90 3RF Patient Comments: pt states meds come in blister pack labeled daily by [employer] and she takes them but doesn't know the names Rx Instructions: Take 500 mg BID for 3 days, then take daily cyanocobalamin (vitamin B-12) [Vitamin B-12] 500 mcg tablet 1,000 mcg PO DAILY Qty: 180 3RF Patient Comments: pt states meds come in blister pack labeled daily by [employer] and she takes them but doesn't know the names ferrous sulfate 325 mg (65 mg iron) tablet 325 mg PO BID Qty: 180 3RF Patient Comments: pt states meds come in blister pack labeled daily by [employer] and she takes them but doesn't know the names Rx Instructions: do not take within 2 hours of antibiotics multivitamin [Multiple Vitamins] Tablet 1 tab PO DAILY Qty: 90 3RF Patient Comments: pt states meds come in blister pack labeled daily by [employer] and she takes them but doesn't know the names quetiapine 25 mg tablet See Rx Instructions PO BID Qty: 60 5RF Patient Comments: pt states meds come in blister pack labeled daily by [employer] and she takes them but doesn't know the names Rx Instructions: 0.5 tab PO twice a day; spironolactone [Aldactone] 50 mg tablet 50 mg PO BID Qty: 180 3RF Patient Comments: pt states meds come in blister pack labeled daily by [employer] and she takes them but doesn't know the names venlafaxine 75 mg capsule,extended release 24hr 75 mg PO DAILY Qty: 90 3RF Hold Instructions: Home Medication placed on hold at Doctor's office Patient Comments: pt states meds come in blister pack labeled daily by [employer] and she takes them but doesn't know the names. aspirin 81 mg tablet,delayed release (DR/EC) 81 mg PO DAILY Qty: 90 3RF Patient Comments: pt states meds come in blister pack labeled daily by [employer] and she takes them but doesn't know the names ondansetron HCl 4 mg tablet 4 mg PO Q6H PRN (Reason: nausea and vomiting) Qty: 20 1RF lorazepam 0.5 mg tablet 0.5 mg PO QHS PRN (Reason: anxiety) Qty: 20 0RF fluticasone propionate 50 mcg/actuation spray,suspension 2 spray NS daily prn Qty: 16 5RF Patient Comments: pt states meds come in blister pack labeled daily by [employer] and she takes them but doesn't know the names carboxymethylcellulose sodium [Refresh Plus] 0.5 % Dropperette 1 drp OU Q4H WHILE AWAKE Qty: 30 0RF Patient Comments: pt states meds come in blister pack labeled daily by [employer] and she takes them but doesn't know the names pantoprazole 40 mg Tablet,Delayed Release (Dr/Ec) 40 mg PO BID@ Qty: 60 0RF Patient Comments: pt states meds come in blister pack labeled daily by [employer] and she takes them but doesn't know the names magnesium oxide 400 mg magnesium tablet 400 mg PO BID Qty: 30 0RF Dificid 200 mg tablet 200 mg PO Q12H Qty: 20 0RF loperamide 2 mg Capsule 2 mg PO Q4H PRN PRNQty: 12 0RF lidocaine 5 % Adhesive Patch,Medicated 2 patch topical Q24H Qty: 30 0RF metronidazole 500 mg tablet 500 mg PO TID Qty: 30 0RF Discharge Instructions Instructions: Hypokalemia (ED), Abuse of Alcohol (ED), Acute Diarrhea (ED), Anemia (ED) Additional Instructions: Please continue taking all your regular medications and follow-up your primary care doctor on Tuesday
[2023-02-05 18:21] LABS: Troponin I < 50 ng/L (<or=60)
--- NOTE | 2023-02-07 09:15 | NUR.NOTE ---
Nursing Note: Accessed pt chart to determine if pt on antibiotic on dc.
--- NOTE | 2023-02-09 15:36 | W.ED.FU ---
Date of service: 02/09/23 Time of Service: 15:36 Follow Up Plan: left message with pt and her contacts to call back and discuss if antibiotics need to be started for her urine culture from 02/05, no one answered but I left messages to have them return a call.
--- NOTE | 2023-02-10 09:52 | W.ED.FU ---
Follow Up Plan: Patient contacted at 10 AM on 615 and made aware regarding urinary tract infection, placed on fosfomycin single dose 3 g, and Florastor Encouraged follow-up with primary care physician this week she still reports diarrhea and recent C. difficile
== END 2023-02-05 19:33 | disposition home or self-care (01) ==
PROVIDERS: Physician Assistant; Emergency Provider Emergency Medicine; PCP Family Medicine
DX: E87.6 Hypokalemia (principal); D64.9 Anemia, unspecified; F10.10 Alcohol abuse, uncomplicated; A04.72 Enterocolitis due to Clostridium difficile, not specified as recurrent; R11.2 Nausea with vomiting, unspecified
CPT/HCPCS: 80053; 83690; 87077; 93005; 96361; 96365; 96366; 96368; 96375; 99285; 74177; 80320; 81003; 81015; 83735; 84484; 85025; 87086; 87186; 93010; 99284; J2270; J2405; J3475; J3480; J3490

== ENCOUNTER → 2023-02-09 11:30 | Outpatient (BNVA) | payer MEDICARE, SELFPAY | PROVIDERS: PCP Family Medicine; Visit Provider Student in an Organized Health Care Education/Training Program ==

== ENCOUNTER 2023-02-13 11:03 | Emergency (ER) | payer MEDICARE, SELFPAY ==
--- NOTE | 2023-02-13 11:00 | RT.EKG_ITS ---
APPROVED REPORT Exam: Resting ECG Reason for Exam: SOB Patient Location: E HR:102 bpm ECG Measurements Heart Rate 102 AXIS ME 159 P 5 QRSd 86 QRS -29 QT 376 T 2 QTc 489 Conclusion Sinus tachycardia...rate> 99 Nonspecific T abnormalities, anterior leads...T <-0.10mV, V2-V4 Narrow complex sinus tachycardia at a rate of 102. Left axis deviation no signs of LVH based on volt age criteria. T wave inversion in lead III and flattening in aVF. More prominent T wave inversions in V2 and V3. No acute ST segment abnormalities. No acute injury pattern. Right chest wall T wave versions more pronounced compared to prior dated earlier this month.
[2023-02-13 11:04] VITALS: BP 165/75; PULSE 105; RESP 18; TEMP 37.2; O2SAT 90
--- NOTE | 2023-02-13 11:23 | W.ED.GENAD ---
Discharge Plan Disposition Patient Disposition: Home Discharge Details Clinical Impression: Leukopenia, Macrocytic anemia, Hypokalemia, Hypomagnesemia, Shortness of breath Primary Care Provider: Lavelle Galindo ED Provider: Clarence Heller Home Meds and New Rx's Prescriptions: Continued Xiidra 5 % dropperette 1 drp ophthalmic (eye) BID Rx Instructions: administer approximately 12 hours apart budesonide [Pulmicort] 0.5 mg/2 mL suspension for nebulization 0.5 mg inhalation DAILY Qty: 60 5RF Patient Comments: pt states meds come in blister pack labeled daily by [employer] and she takes them but doesn't know the names furosemide 20 mg tablet See Rx Instructions PO BID Qty: 180 3RF Patient Comments: pt states meds come in blister pack labeled daily by [employer] and she takes them but doesn't know the names Rx Instructions: orally twice a day; 3 tabs (60mg) in AM and 2 tabs(40mg in afternoon; ipratropium-albuterol 0.5 mg-3 mg(2.5 mg base)/3 mL solution for nebulization 3 ml inhalation Q6H PRN Patient Comments: pt states meds come in blister pack labeled daily by [employer] and she takes them but doesn't know the names Myrbetriq 50 mg tablet extended release 24 hr 50 mg PO DAILY Qty: 30 12RF albuterol sulfate [Ventolin HFA] 90 mcg/actuation HFA aerosol inhaler 2 puff inhalation QID PRN (Reason: shortness of breath or wheezing) Qty: 8.5 1RF amlodipine 10 mg tablet 10 mg PO DAILY Qty: 90 3RF Patient Comments: pt states meds come in blister pack labeled daily by [employer] and she takes them but doesn't know the names buspirone 5 mg tablet 5 mg PO BID Qty: 60 5RF Patient Comments: pt states meds come in blister pack labeled daily by [employer] and she takes them but doesn't know the names folic acid 1 mg tablet 1 mg PO DAILY Qty: 90 3RF Patient Comments: pt states meds come in blister pack labeled daily by [employer] and she takes them but doesn't know the names melatonin 3 mg capsule 6 mg PO HS Qty: 180 3RF Patient Comments: pt states meds come in blister pack labeled daily by [employer] and she takes them but doesn't know the names metoprolol tartrate 50 mg tablet 50 mg PO DAILY Qty: 90 3RF Patient Comments: pt states meds come in blister pack labeled daily by [employer] and she takes them but doesn't know the names mirtazapine 7.5 mg tablet 7.5 mg PO QHS Qty: 90 4RF Patient Comments: pt states meds come in blister pack labeled daily by [employer] and she takes them but doesn't know the names sucralfate 1 gram tablet 1 g PO BID Qty: 60 11RF Patient Comments: pt states meds come in blister pack labeled daily by [employer] and she takes them but doesn't know the names thiamine HCl (vitamin B1) 100 mg tablet 100 mg PO DAILY Qty: 90 3RF Patient Comments: pt states meds come in blister pack labeled daily by [employer] and she takes them but doesn't know the names valacyclovir [Valtrex] 500 mg tablet 500 mg PO DAILY Qty: 90 3RF Patient Comments: pt states meds come in blister pack labeled daily by [employer] and she takes them but doesn't know the names Rx Instructions: Take 500 mg BID for 3 days, then take daily cyanocobalamin (vitamin B-12) [Vitamin B-12] 500 mcg tablet 1,000 mcg PO DAILY Qty: 180 3RF Patient Comments: pt states meds come in blister pack labeled daily by [employer] and she takes them but doesn't know the names ferrous sulfate 325 mg (65 mg iron) tablet 325 mg PO BID Qty: 180 3RF Patient Comments: pt states meds come in blister pack labeled daily by [employer] and she takes them but doesn't know the names Rx Instructions: do not take within 2 hours of antibiotics multivitamin [Multiple Vitamins] Tablet 1 tab PO DAILY Qty: 90 3RF Patient Comments: pt states meds come in blister pack labeled daily by [employer] and she takes them but doesn't know the names quetiapine 25 mg tablet See Rx Instructions PO BID Qty: 60 5RF Patient Comments: pt states meds come in blister pack labeled daily by [employer] and she takes them but doesn't know the names Rx Instructions: 0.5 tab PO twice a day; spironolactone [Aldactone] 50 mg tablet 50 mg PO BID Qty: 180 3RF Patient Comments: pt states meds come in blister pack labeled daily by [employer] and she takes them but doesn't know the names venlafaxine 75 mg capsule,extended release 24hr 75 mg PO DAILY Qty: 90 3RF Hold Instructions: Home Medication placed on hold at Doctor's office Patient Comments: pt states meds come in blister pack labeled daily by [employer] and she takes them but doesn't know the names. aspirin 81 mg tablet,delayed release (DR/EC) 81 mg PO DAILY Qty: 90 3RF Patient Comments: pt states meds come in blister pack labeled daily by [employer] and she takes them but doesn't know the names ondansetron HCl 4 mg tablet 4 mg PO Q6H PRN (Reason: nausea and vomiting) Qty: 20 1RF lorazepam 0.5 mg tablet 0.5 mg PO QHS PRN (Reason: anxiety) Qty: 20 0RF fluticasone propionate 50 mcg/actuation spray,suspension 2 spray NS daily prn Qty: 16 5RF Patient Comments: pt states meds come in blister pack labeled daily by [employer] and she takes them but doesn't know the names carboxymethylcellulose sodium [Refresh Plus] 0.5 % Dropperette 1 drp OU Q4H WHILE AWAKE Qty: 30 0RF Patient Comments: pt states meds come in blister pack labeled daily by [employer] and she takes them but doesn't know the names pantoprazole 40 mg Tablet,Delayed Release (Dr/Ec) 40 mg PO BID@729,1999 Qty: 60 0RF Patient Comments: pt states meds come in blister pack labeled daily by [employer] and she takes them but doesn't know the names magnesium oxide 400 mg magnesium tablet 400 mg PO BID Qty: 30 0RF Dificid 200 mg tablet 200 mg PO Q12H Qty: 20 0RF loperamide 2 mg Capsule 2 mg PO Q4H PRN PRNQty: 12 0RF lidocaine 5 % Adhesive Patch,Medicated 2 patch topical Q24H Qty: 30 0RF metronidazole 500 mg tablet 500 mg PO TID Qty: 30 0RF fosfomycin tromethamine 3 gram packet 3 g PO ONCE Qty: 1 0RF Saccharomyces marveli [Florastor] 250 mg capsule 250 mg PO BID Qty: 20 0RF Discharge Instructions Instructions: Hypomagnesemia (ED) Additional Instructions: Please read all of the information that accompanies these instructions. You were seen in the emergency department for your shortness of breath. Your chest x-ray showed no sign of pneumonia. You were advised to have a CAT scan of your chest but declined. Please schedule an appointment with your primary care provider later this week. Please return to the emergency department if fevers cough or worsening shortness of breath. Discharge Data Discharge Date/Time-TO BE ENTERED AT DEPARTURE: 02/13/23 16:37 Medical Decision Making This is a normothermic and mildly tachycardic 77-year-old alcoholic female with recent diagnosis of C. difficile now with worsening shortness of breath. Patient does have a distended abdomen which is baseline for her. She had no significant rebound or guarding so my suspicion for SBP was low. She is hypertensive and she has not taken her daily amlodipine or metoprolol. We will redose these in the ED. Patient is requesting something to eat. She is complaining of shortness of breath. She said no fevers nor cough. Given her history of cirrhosis she likely has synthetic dysfunction and as result may be hypercoagulable so we will obtain a D-dimer to assess for risk of PE. Based on years criteria PE is not the most likely diagnosis so we will use a criteria of 1000. Patient last drank at midnight and has no tongue fasciculations to suggest withdrawal from alcohol though her vital signs are concerning for early withdrawal. She has no asterixis nor altered mental status to suggest hyperammonemia. She is requesting something to eat so given her nontender abdomen will provide with p.o. Will assess for any acute electrolyte abnormalities and will check magnesium. No pain out of proportion to suggest necrotizing soft tissue infection. I considered sepsis and patient is mildly tachycardic and hypoxic on room air however when she sits up and is breathing normally her oxygen improves. She has a nonischemic ECG however given shortness of breath and age will obtain a troponin. No fevers so my suspicion is low for pneumonia. No prolonged expiratory phase to suggest reactive airway disease exacerbation. 12:15 PM Slightly improved leukopenia. Slightly worsened macrocytic anemia. Resolved thrombocytopenia. 12:45 PM Mildly elevated alcohol level similar to prior. Basic metabolic panel with no AMBER. Mild hypokalemia similar to prior. Mild anion gap. Only mildly elevated glucose not consistent with DKA. Normal reassuring calcium. Mild hypomagnesemia similar to prior. Will replete potassium and magnesium. 1:15 PM D-dimer returned floridly positive for which patient will undergo CTA chest to assess for PE. 2:20 PM [address] attempted to place a 20-gauge IV under ultrasound guidance in the patient's right forearm. Fortunately she did not tolerate this procedure well. I advised her that we needed an IV to obtain a CT scan. She reported that she wanted to go. I advised her that there is a risk in her going as she could have an undiagnosed PE. She understood this risk and wanted to be discharged to lie down and rest at home. She was able to tolerate p.o. in the ED with neither nausea nor vomiting. She was not hypoxic on room air. No ongoing GI losses to suggest increased risk for persistent hypokalemia and hypomagnesemia. I asked health manager community outreach Wendy to have the patient seen for follow-up by her PCP later this week. 1. I explained the current situation and condition to the patient. 2. I explained the recommended treatment for this condition -CTA to assess for PE 3. I explained the risk of not having the recommended treatment -undiagnosed blood clot 4. The patient understands this information has no questions, and repeated back this information. 5. The patient states that they need to leave and will return if her symptoms worsen 6. Mental status is lucid and the patient has decision-making capacity. 7. Patient is withdrawing consent for care [facility] General Date/Time Provider Initiated Documentation: 02/13/23 11:08. [facility] Narrative: This is a 77-year-old alcoholic with shortness of breathand dizziness. She reports that she has not been to eat anything for the past 3 days. She last drank at midnight last night. She denies routine tobacco. She has had no fevers but she has had a cough along with her shortness of breath. She is not having any chest pain. She never had a DVT or PE. She has not taken any recent falls. She endorses nausea but not vomiting. No sick contacts. Related Data Home Medications Medication Instructions Recorded Confirmed carboxymethylcellulose sodium 0.5 1 drp OU Q4H WHILE AWAKE #30 ea 10/23/19 06/18/23 % eye drops in a dropperette (Refresh Plus) lifitegrast 5 % eye drops in a 1 drp ophthalmic (eye) BID 08/05/20 02/13/23 dropperette (Xiidra) ipratropium 0.5 mg-albuterol 3 mg 3 ml inhalation Q6H PRN 12/25/21 02/13/23 (2.5 mg base)/3 mL nebulization soln albuterol sulfate 90 mcg/actuation 2 puff inhalation QID PRN 02/08/22 02/13/23 aerosol inhaler (Ventolin HFA) shortness of breath or wheezing #8.5 grams amlodipine 10 mg tablet 10 mg PO DAILY #90 tabs 02/08/22 02/13/23 buspirone 5 mg tablet 5 mg PO BID #60 tabs 02/08/22 02/13/23 folic acid 1 mg tablet 1 mg PO DAILY #90 tabs 02/08/22 02/13/23 melatonin 3 mg capsule 6 mg PO HS #180 caps 02/08/22 02/13/23 metoprolol tartrate 50 mg tablet 50 mg PO DAILY #90 tabs 02/08/22 02/13/23 mirtazapine 7.5 mg tablet 7.5 mg PO QHS #90 tabs 02/08/22 02/13/23 sucralfate 1 gram tablet 1 g PO BID #60 tabs 02/08/22 02/13/23 thiamine HCl (vitamin B1) 100 mg 100 mg PO DAILY #90 tabs 02/08/22 02/13/23 tablet valacyclovir 500 mg tablet 500 mg PO DAILY #90 tabs 02/08/22 02/13/23 (Valtrex) budesonide 0.5 mg/2 mL suspension 0.5 mg (2 mL) inhalation DAILY #60 05/06/22 02/13/23 for nebulization (Pulmicort) mL pantoprazole 40 mg tablet,delayed 40 mg PO BID@07,1999 #60 tabs 05/21/22 02/13/23 release cyanocobalamin (vitamin B-12) 500 1,000 mcg PO DAILY #180 tabs 07/10/22 02/13/23 mcg tablet (Vitamin B-12) ferrous sulfate 325 mg (65 mg 325 mg PO BID #180 tabs 07/10/22 02/13/23 iron) tablet multivitamin (Multiple Vitamins 1 tab PO DAILY #90 tabs 07/10/22 02/13/23 tablet) quetiapine 25 mg tablet See Rx Instructions PO BID #60 tabs 07/10/22 02/13/23 spironolactone 50 mg tablet 50 mg PO BID #180 tabs 07/10/22 02/13/23 (Aldactone) venlafaxine 75 mg capsule,extended 75 mg PO DAILY #90 caps 07/10/22 02/13/23 release 24 hr mirabegron 50 mg tablet,extended 50 mg PO DAILY #30 tabs 07/20/22 02/13/23 release 24 hr (Myrbetriq) aspirin 81 mg tablet,delayed 81 mg PO DAILY #90 tabs 08/05/22 02/13/23 release furosemide 20 mg tablet See Rx Instructions PO BID #180 08/11/22 02/13/23 tabs lidocaine 5 % topical patch 2 patch topical Q24H #30 ea 01/13/23 02/13/23 loperamide 2 mg capsule 2 mg PO Q4H PRN PRN #12 caps 01/13/23 02/13/23 metronidazole 500 mg tablet 500 mg PO TID #30 tabs 01/13/23 02/13/23 fidaxomicin 200 mg tablet (Dificid) 200 mg PO Q12H #20 tabs 01/15/23 02/13/23 magnesium oxide 400 mg PO BID #30 tabs 01/15/23 02/13/23 lorazepam 0.5 mg tablet 0.5 mg PO QHS PRN anxiety #20 tabs 02/02/23 02/13/23 ondansetron HCl 4 mg tablet 4 mg PO Q6H PRN nausea and 02/02/23 02/13/23 vomiting #20 tabs fluticasone propionate 50 2 spray NS daily prn #16 grams 02/03/23 02/13/23 mcg/actuation nasal spray,suspension Saccharomyces boulardii 250 mg 250 mg PO BID #20 caps 02/10/23 02/13/23 capsule (Florastor) fosfomycin tromethamine 3 gram 3 g PO ONCE #1 ea 02/10/23 02/13/23 oral packet Previous Rx's Medication Instructions Recorded carboxymethylcellulose sodium 0.5 1 drp OU Q4H WHILE AWAKE #30 ea 06/20/ % eye drops in a dropperette (Refresh Plus) albuterol sulfate 90 mcg/actuation 2 puff inhalation QID PRN 02/08/22 aerosol inhaler (Ventolin HFA) shortness of breath or wheezing #8.5 grams amlodipine 10 mg tablet 10 mg PO DAILY #90 tabs 02/08/22 buspirone 5 mg tablet 5 mg PO BID #60 tabs 02/08/22 folic acid 1 mg tablet 1 mg PO DAILY #90 tabs 02/08/22 melatonin 3 mg capsule 6 mg PO HS #180 caps 02/08/22 metoprolol tartrate 50 mg tablet 50 mg PO DAILY #90 tabs 02/08/22 mirtazapine 7.5 mg tablet 7.5 mg PO QHS #90 tabs 02/08/22 sucralfate 1 gram tablet 1 g PO BID #60 tabs 02/08/22 thiamine HCl (vitamin B1) 100 mg 100 mg PO DAILY #90 tabs 02/08/22 tablet valacyclovir 500 mg tablet 500 mg PO DAILY #90 tabs 02/08/22 (Valtrex) budesonide 0.5 mg/2 mL suspension 0.5 mg (2 mL) inhalation DAILY #60 05/06/22 for nebulization (Pulmicort) mL pantoprazole 40 mg tablet,delayed 40 mg PO BID@0730,2000 #60 tabs 05/21/22 release cyanocobalamin (vitamin B-12) 500 1,000 mcg PO DAILY #180 tabs 07/10/22 mcg tablet (Vitamin B-12) ferrous sulfate 325 mg (65 mg 325 mg PO BID #180 tabs 07/10/22 iron) tablet multivitamin (Multiple Vitamins 1 tab PO DAILY #90 tabs 07/10/22 tablet) quetiapine 25 mg tablet See Rx Instructions PO BID #60 tabs 07/10/22 spironolactone 50 mg tablet 50 mg PO BID #180 tabs 07/10/22 (Aldactone) venlafaxine 75 mg capsule,extended 75 mg PO DAILY #90 caps 07/10/22 release 24 hr mirabegron 50 mg tablet,extended 50 mg PO DAILY #30 tabs 07/20/22 release 24 hr (Myrbetriq) aspirin 81 mg tablet,delayed 81 mg PO DAILY #90 tabs 08/05/22 release furosemide 20 mg tablet See Rx Instructions PO BID #180 08/11/22 tabs lidocaine 5 % topical patch 2 patch topical Q24H #30 ea 01/13/23 loperamide 2 mg capsule 2 mg PO Q4H PRN PRN #12 caps 01/13/23 metronidazole 500 mg tablet 500 mg PO TID #30 tabs 01/13/23 fidaxomicin 200 mg tablet (Dificid) 200 mg PO Q12H #20 tabs 01/15/23 magnesium oxide 400 mg PO BID #30 tabs 01/15/23 lorazepam 0.5 mg tablet 0.5 mg PO QHS PRN anxiety #20 tabs 02/02/23 ondansetron HCl 4 mg tablet 4 mg PO Q6H PRN nausea and 02/02/23 vomiting #20 tabs fluticasone propionate 50 2 spray NS daily prn #16 grams 02/03/23 mcg/actuation nasal spray,suspension Saccharomyces boulardii 250 mg 250 mg PO BID #20 caps 02/10/23 capsule (Florastor) fosfomycin tromethamine 3 gram 3 g PO ONCE #1 ea 02/10/23 oral packet Allergies Allergy/AdvReac Type Severity Reaction Status Date / Time Penicillins Allergy Mild Rash Verified 02/13/23 11:07 ramipril Allergy Unknown ITCHING Verified 02/13/23 11:07 meperidine [From Demerol] AdvReac Severe Nausea Verified 02/13/23 11:07 bupropion AdvReac Mild GI upset Verified 02/13/23 11:07 AMBER Inhibitors AdvReac Unknown COUGH Verified 02/13/23 11:07 alendronate sodium AdvReac Unknown GI Distress Verified 02/13/23 11:07 clarithromycin AdvReac Unknown intolerant Verified 02/13/23 11:07 paroxetine AdvReac Unknown Diarrhea Verified 02/13/23 11:07 General Stated Complaint: GenMedical JORDAN: 3 PFSH All Active Problems (Updated 02/13/23 @ 14:20 by Clarence Heller MD) Leukopenia (Acute) Macrocytic anemia (Acute) Hypokalemia (Acute) Hypomagnesemia (Acute) Shortness of breath (Acute) Lung cancer (Chronic) RUL Abdominal pain (Acute) Leukopenia (Acute) Thrombocytopenia (Chronic) Hypomagnesemia (Acute) Elevated LFTs (Acute) Macrocytic anemia (Acute) Pelvic mass (Acute) Pneumothorax after biopsy (Acute) 01/19/23 [place] [facility] [place] Soft tissue mass (Acute) 12/29/22 [place] [facility] [place] Avid lobulated pre-sacral. -hb Hypomagnesemia (Acute) Clostridium difficile diarrhea (Acute) Hypokalemia (Acute) Alcohol abuse (Chronic) DVT prophylaxis (Acute) Multiple rib fractures (Chronic) 03/11/19 [facility] Alcohol withdrawal (Acute) Hypomagnesemia (Acute) Breast nodule (Acute) Sleep disturbance (Acute) Sinus tachycardia (Acute) High anion gap metabolic acidosis (Acute) Elevated blood pressure reading with diagnosis of hypertension (Acute) Pincer nail deformity (Acute) Insomnia (Acute) Thrombocytopenia (Chronic) Elevated bilirubin (Acute) Mixed stress and urge urinary incontinence (Acute) Thyroid nodule (Acute) Anxiety (Chronic) Adverse effect of metronidazole (Acute) Medication monitoring encounter (Acute) Advance care planning (Acute) Cirrhosis of liver with ascites (Acute) Animal bite of right hand with infection (Acute) Umbilical hernia (Acute) Hyperbilirubinemia (Acute) Shortness of breath (Acute) Elevated blood pressure reading without diagnosis of hypertension (Acute) Left arm pain (Acute) Ambulatory dysfunction (Acute) Incontinence (Acute) Anorexia (Acute) Headache (Acute) Depression (Chronic) Chest pain (Acute) Foot pain, right (Acute) Tendinitis of left rotator cuff (Acute) Macrocytosis (Acute 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 Leukopenia (Acute) Headache (Acute) Epigastric abdominal pain (Acute) Calcific tendinitis of left shoulder (Acute) Pulmonary mass (Acute) spiculated mass Pneumonia (Acute) Depression with suicidal ideation (Acute) Alcohol abuse (Chronic) Diarrhea (Acute) Epigastric pain (Acute) Dehydration (Acute) Discharge planning issues (Acute) Difficult intravenous access (Acute) Multiple IV attempts, usually requires ultrasound placement. PTSD (post-traumatic stress disorder) (Acute) Anemia (Chronic) Depression (Chronic) Foot pain, right (Acute) T12 compression fracture (Acute) Presacral mass (Chronic) Deviated nasal septum (Acute) Frequent falls (Chronic) Head injury (Acute) Ambulatory dysfunction (Chronic) Shoulder pain, right (Chronic) Suicidal ideation (Acute) Dry eye (Acute) Pruritus (Acute) Dystrophic nail (Acute) AMBER (acute kidney injury) (Acute) Iron deficiency anemia (Chronic) Fall (Acute) Atelectasis of left lung (Chronic) Advance directive on file (Acute) Nodule of upper lobe of right lung (Acute ~09/13/18) 01/19/23 Increased in [place] 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) pls refrain from alcohol Chronic alcoholism she will not stop drinking unless she checks with me, so that we can help her avert withdrawal I do not think she is capable on her own--she would need placement to achieve required goal of 3 months of sobriety Chronic diarrhea Closed right humeral fracture Corneal ulcer, right (~08/23/18) 08/23/18; [facility]-kb Fracture of humerus, left, closed Genital herpes simplex recurrent gential; suppressive Valtrex GERD (gastroesophageal reflux disease) GI bleed (12/20/16) Hypertension Hypokalemia Hypokalemia Hypomagnesemia Incidental lung nodule, greater than or equal to 8mm 1cm, spiculated, stable for many years, recommend f/u in 6 mo Multiple rib fractures 03/11/19 [facility] Non-cardiac chest pain (09/21/16) [facility] [place] NEGATIVE MP Osteoarthritis Palliative care patient (03/21/17) Pancreatitis, alcoholic, acute Peripheral edema Photophobia of right eye Pleural effusion on left 03/11/19 [facility] Presacral mass (~09/15/18) 09/15/18 [facility] Sciatica right, epidural injuections [facility] Tubular adenoma of colon (01/28/17) Urinary incontinence 01/24/13 urethral suspension and sling [place] [facility]bladder suspension [place] 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 Bladder repair. Repair bladder injury, simple S/P laparoscopic cholecystectomy (~05/19/22) Family History Mother No problems noted. Father , DROWNED at age 50. No problems noted. Sister Personal history of malignant neoplasm MELANOMA Sister No problems noted. Grandfather Personal history of malignant neoplasm STOMACH Grandfather Personal history of malignant neoplasm PROSTATE Grandmother Heart disease IA Acute ill-defined cerebrovascular disease Grandmother Personal history of malignant neoplasm UTERINE Aunt , [place] Heart disease IA Aunt , [place] Heart disease Brother No problems noted. Social History Smoking/Tobacco Use Status: Former Tobacco Use Quit Date: 08/29/80 Smoking risk assessment performed?: Yes Alcohol Intake: current Alcohol Intake frequency: 3 or more drinks per day Alcohol type: hard liquor Drug use: Never Substance use type: does not use Details: Last alcoholic drink Mike zhong, 2 days ago Current gender identity: female Do you feel safe at home: Yes Do you feel safe in your relationship?: No Additional Social history: Has 1 dog, 4 cats. Exam Narrative Exam Narrative: General: Well-appearing in no acute distress speaking in complete sentences. Head: Normocephalic, atraumatic. Eye: Extraocular eye movements intact. No conjunctival injection. No scleral icterus. Ear, nose, mouth, throat: Grossly normal inspection. Normal voice, handling secretions normally. No tongue fasciculations. Neck: Trachea midline. Cardiovascular: Well-perfused distal extremities. Rapid regular rate Respiratory: Nonlabored respiration.clear lungs bilaterally. Gastrointestinal: Moderately distended abdomen. No rebound. No guarding. Musculoskeletal: No significant lower extremity pitting edema. Moving all 4 extremities spontaneously. Skin: Normal for age and race, grossly normal temperature and turgor. No acute rash. Neurologic: Alert and appropriate, no apparent acute deficits. Psychiatric: Mood and manner are appropriate. Grooming and personal hygiene are appropriate. Course Vital Signs Vital signs: Vital Signs Temperature 37.2 C 02/13/23 11:04 Pulse 105 H 02/13/23 11:04 Respiratory Rate 18 02/13/23 11:04 Blood Pressure 165/75 H 02/13/23 11:04 Pulse Oximetry 90 L 02/13/23 11:04 Temperature 37.2 C 02/13/23 11:04 Temperature Source Oral 02/13/23 11:04 Pulse 105 H 02/13/23 11:04 Respiratory Rate 18 02/13/23 11:04 Respiratory Effort Normal 02/13/23 11:08 Blood Pressure 165/75 H 02/13/23 11:04 Blood Pressure Position Sitting 02/13/23 11:04 Pulse Oximetry 90 L 02/13/23 11:04 Oxygen Delivery Method Room Air 02/13/23 11:04 Oxygen Flow Rate 0 02/13/23 11:04 Pain Level 6 02/13/23 11:04 PAWSS Have you Been Recently Intoxicated or Drunk Within the Last 30 days?: Yes Have you Ever Experienced Previous Episodes of Alcohol Withdrawal?: Yes Have you ever Experienced Withdrawal Seizures?: No Have you ever Experienced Delirium Tremens(DT)s?: No Have you ever undergone Alcohol Rehabilitation Treatment (i.e, inpt ot outpatient treatment programs)?: Yes Have you ever Experienced Blackouts?: No Have you ever Combined Alcohol with other Downers within the last 90 days?: No Have you ever Combined Alcohol with any other Substance of Abuse during the last 90 days?: No Positive Blood Alcohol level on Presentation? [PCS.BAL]: No Evidence of Increased Autonomic Activity (i.e. HR>120, tremor, sweating, agitation, nausea)?: No Result: 3
[2023-02-13 11:30] VITALS: RESP 18
--- NOTE | 2023-02-13 11:30 | DI.RAD_ITS ---
Exam(s) XR PORTABLE CHEST AP EXAM: XR PORTABLE CHEST AP CLINICAL HISTORY: Shortness of breath. TECHNIQUE: 2D digital imaging was performed. COMPARISON: CR,XR XR PORTABLE CHEST AP from 01/29/2023 FINDINGS: Single AP portable view. Heart size is upper normal. The mediastinum is not widened. Multiple bilateral rib fractures again noted. No new infiltrates nor pleural effusions. No pulmonar y edema. No pneumothorax. Deformities of both clavicles again noted. Also deformity of the right humeral head again noted. IMPRESSION: No obvious acute pulmonary findings. Osseous findings as above. DATA REPOSITORY: RADIATION DOSE DELIVERED:
[2023-02-13] MEDS: Normal Saline 500 ML 250 ML IV (11:44)
[2023-02-13] MEDS: Metoprolol 50 MG TAB PO (11:44)
[2023-02-13] MEDS: amLODIPine 5 MG TAB 10 MG PO (11:44)
[2023-02-13 12:00] LABS: Abs Immature Grans 0.03 10^3/uL (0.0-0.06); Absolute Basophil Count 0.02 10^3/uL (0.0-0.2); Absolute Eosinophil Count 0.01 10^3/uL (0.0-0.7); Absolute Lymphocyte Count 0.44 10^3/uL (1.2-3.4); Absolute Monocyte Count 0.25 10^3/uL (0.1-0.8); Absolute Neutrophil Count 2.06 10^3/uL (1.2-6.7); Basophils % 0.7; Eosinophils % 0.4; HCT 25.1 % (36.0-46.0); Immature Grans % 1.1; Lymphocytes % 15.7; MCH 32.7 pg (27.0-33.0); MCHC 31.9 % (32.0-36.0); MCV 102 fL (80-95); MPV 8.5 fL (8.0-11.0); Monocytes % 8.9; Neutrophils % 73.2; Platelet Count 172 10^3/uL (130-400); RBC 2.45 10^6/uL (3.93-5.22); WBC 2.81 10^3/uL (4.4-10.8)
[2023-02-13 12:12] LABS: Anion Gap 16.3 mmol/L (3-11); BUN 8 mg/dL (7-18); CO2 25.7 mmol/L (21.0-32.0); CREATININE 0.8 mg/dL (0.55-1.02); Calcium 8.8 mg/dL (8.5-10.1); Chloride 100 mmol/L (98-107); ETHANOL BLOOD 64.4 mg/dL (<10); Estimated GFR 76.31 (mL/min/1.73m2); Glucose 118 mg/dL (74-106); Magnesium 1.2 mg/dL (1.8-2.4); Potassium 3.1 mmol/L (3.5-5.1); Sodium 142 mmol/L (136-145)
--- NOTE | 2023-02-13 12:18 | DI.VRAD_ITS ---
PROCEDURE INFORMATION: Exam: XR Chest Exam date and time: 02/13/2023 11:50 AM Age: 77 years old Clinical indication: Shortness of breath TECHNIQUE: Imaging protocol: Radiologic exam of the chest. Views: 1 view. COMPARISON: CR XR PORTABLE CHEST AP 01/29/2023 12:55 PM FINDINGS: Lungs: Reduced lung volumes.. No consolidation. Pleural spaces: Pleural thickening adjacent to the bilateral rib fractures. No pleural effusion. No pneumothorax. Heart/Mediastinum: Unchanged cardiomegaly. Tortuous aorta. Right upper quadrant surgical clips. Bones/joints: Old bilateral rib fractures. Nonacute appearing deformity deformities of the bilateral [place] colored your joint are unchanged compared with July 2022, may be posttraumatic and/or postsurgical. Nonacute appearing deformity of the proximal right humerus is present on 11/15/2022 however, appears new since July 29, 2022 chest x-ray. Comparison with October and November 2022 chest CTs is somewhat limited secondary to positioning and field of view. IMPRESSION: 1. No acute cardiopulmonary disease. Similar enlargement of cardiac silhouette. No focal consolidation. 2. Nonacute appearing deformity of proximal right humerus and bilateral acromioclavicular joint. If warranted, advise consider dedicated imaging. See discussion. Dictated and Authenticated by: Sahara Estrada MD. Ordering:CAMRON Lima MD
[2023-02-13 13:02] LABS: D-Dimer 4834 ng/mlFEU (<500)
[2023-02-13] MEDS: Potassium Bicarbonate/Cit AC 25 MEQ TABLET.EFF 50 MEQ PO (13:08)
[2023-02-13] MEDS: Magnesium Oxide 400 MG TAB 800 MG PO (13:08)
--- NOTE | 2023-02-13 14:05 | NUR.NOTE ---
multiple attempts made to establish an US IV for a CTA by this RN and MD Heller. unable to establish IV. pt asking for staff to stop trying
--- NOTE | 2023-02-13 14:59 | NUR.NOTE ---
Nursing Note: Referral faxed to PCP for shortness of breath to be seen later this week.
== END 2023-02-13 16:37 | disposition home or self-care (01) ==
PROVIDERS: Emergency Provider Emergency Medicine; PCP Family Medicine
DX: D72.829 Elevated white blood cell count, unspecified (principal); D64.9 Anemia, unspecified; E87.6 Hypokalemia; E83.42 Hypomagnesemia; Z79.899 Other long term (current) drug therapy; R06.02 Shortness of breath; R79.89 Other specified abnormal findings of blood chemistry; F10.20 Alcohol dependence, uncomplicated
CPT/HCPCS: 36415; 80048; 93005; 96360; 96361; 99284; 99285; 71045; 80320; 83735; 84484; 85025; 85379; 93010; 99283

== ENCOUNTER 2023-02-16 08:27 | Inpatient (IN) | payer MEDICARE, SELFPAY ==
[2023-02-16] VITALS (70 sets, daily range): BP systolic 109–156; BP diastolic 31–124; PULSE 81–117; RESP 6–30; TEMP 36.6–37.3; O2SAT 87–99
--- NOTE | 2023-02-16 | DI.CT_ITS ---
Exam(s) CT ABDOMEN PELVIS WO EXAM: CT ABDOMEN PELVIS WO CLINICAL HISTORY: abdominal pain and distention, anemia, C.Diff. TECHNIQUE: Imaging Protocol: Axial computed tomography images with coronal and sagittal reformatted images were created and reviewed. COMPARISON: CT CT ABDOMEN PELVIS W from 02/05/2023 FINDINGS: Lung Bases: Tiny bilateral pleural effusions. Mild dependent atelectasis. Liver: Cirrhotic appearance. Stable low-density lesion posterior liver . Gallbladder and biliary tract: Status post cholecystectomy. No radiodense calculus or biliary ductal dilation. Pancreas: Normal density, no abnormal calcifications or inflammatory process. Spleen: Normal. Kidneys: Normal size, contour and axis.No radiodense stones or obstructive uropathy. No masses seen. Stable cysts. No further follow-up recommended. Adrenal glands: No mass is seen. Lymph nodes: Within normal limits. Abdominal Aorta: Abdominal portion non-dilated. Bladder:Symmetric distention, no gross wall thickening. Bowel: Limited evaluation without IV or oral contrast. Colon decompressed. No obstruction or bowel wall thickening. No evidence of appendicitis. Peritoneal cavity: Moderate to large quantity of ascites, roughly stable. Stable large masses in t he posterior presacral fat. Omental caking again visible. Reproductive organs: Within normal limits. Bones: Old bilateral rib fractures. Degenerative changes in the spine. Soft Tissues: Within normal limits. IMPRESSION: Bowel not well evaluated do like of IV an oral contrast. Colon is decompressed. Stable appearance of ascites and omental caking. Stable appearance of masses in the presacral fat. RADIATION DOSE DELIVERED: 994.95mGy.cm Total DLP 994.95mGy.cm Total DLP DATA REPOSITORY: All CT scans at this facility are submitted to the National Radiology Data Registry (NRDR) Dose Index Registry (DIR) with the [employer] ([employer]). RADIATION OPTIMIZATION: All CT scans at this facility use at least one of these dose optimization te chniques: automated exposure control; mA and/or kV adjustment per patient size (includes targeted exa ms where dose is matched to clinical indication); or iterative reconstruction.
--- NOTE | 2023-02-16 08:30 | RT.EKG_ITS ---
APPROVED REPORT Exam: Resting ECG Reason for Exam: electrolyte abnormality Patient Location: E HR:97 bpm ECG Measurements Heart Rate 97 AXIS AR 181 P 44 QRSd 83 QRS -25 QT 381 T 3 QTc 484 Conclusion Sinus rhythm...normal P axis, V-rate 60- 99 Low voltage, precordial leads...precordial leads <1.0mV SINUS RHYTHM no significant change from prior 02/13/23
[2023-02-16] MEDS: MAGNESIUM SULFATE 1 GM/100 ML BAG IVPB (09:09)
[2023-02-16] MEDS: Normal Saline 1,000 ML 1000 ML IV ×2 (09:09→10:44)
[2023-02-16] MEDS: Prochlorperazine 10 MG/2 ML VIAL 5 MG IVP (09:09)
[2023-02-16] MEDS: THIAMINE 100 MG in Normal Saline 100 ML 200 MG IVPB (09:10)
[2023-02-16 09:14] LABS: Abs Immature Grans 0.02 10^3/uL (0.0-0.06); Absolute Basophil Count 0.02 10^3/uL (0.0-0.2); Absolute Eosinophil Count 0.01 10^3/uL (0.0-0.7); Absolute Lymphocyte Count 0.48 10^3/uL (1.2-3.4); Absolute Monocyte Count 0.32 10^3/uL (0.1-0.8); Absolute Neutrophil Count 2.08 10^3/uL (1.2-6.7); Basophils % 0.7; Eosinophils % 0.3; HCT 22.4 % (36.0-46.0); HGB 7.1 g/dL (11.2-15.7); Immature Grans % 0.7; Lymphocytes % 16.4; MCH 32.6 pg (27.0-33.0); MCHC 31.7 % (32.0-36.0); MCV 103 fL (80-95); MPV 8.8 fL (8.0-11.0); Monocytes % 10.9; Platelet Count 177 10^3/uL (130-400); RBC 2.18 10^6/uL (3.93-5.22); RDW 19.1 % (11.7-14.6); RDW-SD 71.7 fL; WBC 2.93 10^3/uL (4.4-10.8)
[2023-02-16 09:25] LABS: ETHANOL BLOOD 52.7 mg/dL (<10)
[2023-02-16 09:27] LABS: ALT 16 U/L (14-59); AST 40 U/L (15-37); Albumin 2.9 g/dL (3.4-5.0); Alkaline Phosphatase 184 U/L (46-116); Anion Gap 12.2 mmol/L (3-11); BUN 15 mg/dL (7-18); Bilirubin, Total 1.7 mg/dL (0.2-1.0); CO2 26.8 mmol/L (21.0-32.0); CREATININE 0.9 mg/dL (0.55-1.02); Calcium 8.4 mg/dL (8.5-10.1); Chloride 98 mmol/L (98-107); Estimated GFR 66.26 (mL/min/1.73m2); Glucose 131 mg/dL (74-106); Lipase 26 U/L (16-77); Magnesium 1.4 mg/dL (1.8-2.4); Potassium 3.6 mmol/L (3.5-5.1); Sodium 137 mmol/L (136-145); Total Protein 5.8 g/dL (6.4-8.2)
[2023-02-16 09:54] LABS: Diff Comment Diff Reviewed; Hypochromasia 2+; Polychromasia Present
[2023-02-16] MEDS: MAGNESIUM SULFATE 2 GM/50 ML BAG IVPB (09:58)
[2023-02-16] MEDS: Pantoprazole 40 MG VIAL IVP (10:58)
[2023-02-16 11:01] LABS: Bilirubin Moderate (Negative); Blood Negative (Negative); Clarity Cloudy (Clear); Glucose Negative (Negative); Ketones 40 mg/dL (Negative); Leukocyte Esterase Trace (Negative); Nitrite Negative (Negative); Specific Gravity 1.015 (1.005-1.025)
[2023-02-16 11:08] LABS: INR 1.2 (0.9-1.1); Prothrombin Time 12.2 sec (9.3-11.0)
[2023-02-16 11:10] LABS: Bacteria Many HPF (Negative); C & S Indicated? Yes; Casts Negative LPF (Negative); Crystals Negative HPF (Negative); Epithelial Cells Rare HPF (Negative); Mucus Trace (Negative); RBC 0-2 HPF (0-2)
[2023-02-16 11:17] LABS: Abs Immature Grans 0.02 10^3/uL (0.0-0.06); Absolute Basophil Count 0.01 10^3/uL (0.0-0.2); Absolute Eosinophil Count 0.01 10^3/uL (0.0-0.7); Absolute Lymphocyte Count 0.45 10^3/uL (1.2-3.4); Absolute Monocyte Count 0.25 10^3/uL (0.1-0.8); Absolute Neutrophil Count 1.45 10^3/uL (1.2-6.7); Basophils % 0.5; Eosinophils % 0.5; Immature Grans % 0.9; Lymphocytes % 20.5; MCH 32.6 pg (27.0-33.0); MCHC 31.4 % (32.0-36.0); MCV 104 fL (80-95); MPV 8.7 fL (8.0-11.0); Monocytes % 11.4; Neutrophils % 66.2; Platelet Count 131 10^3/uL (130-400); RBC 1.87 10^6/uL (3.93-5.22); RDW 19.2 % (11.7-14.6); RDW-SD 71.8 fL; WBC 2.19 10^3/uL (4.4-10.8)
[2023-02-16 11:19] LABS: Vitamin B12 437 pg/mL (193-986)
[2023-02-16 11:21] LABS: HCT 19.4 % (36.0-46.0); HGB 6.1 g/dL (11.2-15.7)
[2023-02-16 11:40] LABS: Diff Comment Diff Reviewed; Hypochromasia 3+
--- NOTE | 2023-02-16 11:55 | W.ED.GENAD ---
Discharge Plan Disposition Patient Disposition: Admit to [facility] Discharge Details Chief Complaint: Nausea/Vomit/Diar Clinical Impression: Alcohol abuse, Anemia, Hypomagnesemia Admit Date/Time: 02/16/23 11:23 Admit Provider: Laly Dumont Attending Provider: Laly Dumont Primary Care Provider: Lavelle Galindo ED Provider: Monica Yarbrough Medical Decision Making 77-year-old female known to this facility presents with nausea vomiting and diarrhea, consistent with her prior presentations Patient is still not actively vomiting, received antiemetics, fluids Magnesium is 1.4, labs do not show significantly changed from prior CBC shows hemoglobin of 7.1, hematocrit of 22, this is a change from her prior prior approximately one-point On repeat CBC, she is decreased to 6.1 Given 40 mg of Protonix, concern for possible upper GI source of anemia, dark stool., guaiac negative 1 unit of blood after consent obtained 2 units of magnesium patient She has remained hemodynamically stable throughout this encounter Blood alcohol of 52, history of delirium tremens when reviewed from prior Case discussed with Dr. Dumont, surgery was consulted at her request, Dr. Wells he does not feel like patient needs emergent endoscopy Patient will be admitted to this facility at this time HPI General Date/Time Provider Initiated Documentation: 02/16/23 08:34. HPI Narrative: This 77-year-old female known to this facility presents with weakness, nausea, vomiting, diarrhea. Denies blood in her stool. Denies any chest pain or shortness of breath. Denies fever or chills. States her symptoms have been going on for weeks. Last drink was at 12:00 last night. Related Data Home Medications Medication Instructions Recorded Confirmed carboxymethylcellulose sodium 0.5 1 drp OU Q4H WHILE AWAKE #30 ea 06/20/19 02/16/23 % eye drops in a dropperette (Refresh Plus) lifitegrast 5 % eye drops in a 1 drp ophthalmic (eye) BID 08/05/20 02/16/23 dropperette (Xiidra) ipratropium 0.5 mg-albuterol 3 mg 3 ml inhalation Q6H PRN 12/25/21 02/16/23 (2.5 mg base)/3 mL nebulization soln albuterol sulfate 90 mcg/actuation 2 puff inhalation QID PRN 02/08/22 02/16/23 aerosol inhaler (Ventolin HFA) shortness of breath or wheezing #8.5 grams amlodipine 10 mg tablet 10 mg PO DAILY #90 tabs 02/08/22 02/16/23 buspirone 5 mg tablet 5 mg PO BID #60 tabs 02/08/22 02/16/23 folic acid 1 mg tablet 1 mg PO DAILY #90 tabs 02/08/22 02/16/23 melatonin 3 mg capsule 6 mg PO HS #180 caps 02/08/22 02/16/23 metoprolol tartrate 50 mg tablet 50 mg PO DAILY #90 tabs 02/08/22 02/16/23 mirtazapine 7.5 mg tablet 7.5 mg PO QHS #90 tabs 02/08/22 02/16/23 sucralfate 1 gram tablet 1 g PO BID #60 tabs 02/08/22 02/16/23 thiamine HCl (vitamin B1) 100 mg 100 mg PO DAILY #90 tabs 02/08/22 02/16/23 tablet valacyclovir 500 mg tablet 500 mg PO DAILY #90 tabs 02/08/22 02/16/23 (Valtrex) budesonide 0.5 mg/2 mL suspension 0.5 mg (2 mL) inhalation DAILY #60 05/06/22 02/16/23 for nebulization (Pulmicort) mL pantoprazole 40 mg tablet,delayed 40 mg PO BID@0730,2000 #60 tabs 05/21/22 02/16/23 release cyanocobalamin (vitamin B-12) 500 1,000 mcg PO DAILY #180 tabs 07/10/22 02/16/23 mcg tablet (Vitamin B-12) ferrous sulfate 325 mg (65 mg 325 mg PO BID #180 tabs 07/10/22 02/16/23 iron) tablet multivitamin (Multiple Vitamins 1 tab PO DAILY #90 tabs 07/10/22 02/16/23 tablet) quetiapine 25 mg tablet See Rx Instructions PO BID #60 tabs 07/10/22 02/16/23 spironolactone 50 mg tablet 50 mg PO BID #180 tabs 07/10/22 02/16/23 (Aldactone) venlafaxine 75 mg capsule,extended 75 mg PO DAILY #90 caps 07/10/22 02/16/23 release 24 hr mirabegron 50 mg tablet,extended 50 mg PO DAILY #30 tabs 07/20/22 02/16/23 release 24 hr (Myrbetriq) aspirin 81 mg tablet,delayed 81 mg PO DAILY #90 tabs 08/05/22 02/16/23 release furosemide 20 mg tablet See Rx Instructions PO BID #180 08/11/22 02/16/23 tabs lidocaine 5 % topical patch 2 patch topical Q24H #30 ea 01/13/23 02/16/23 loperamide 2 mg capsule 2 mg PO Q4H PRN PRN #12 caps 01/13/23 02/16/23 metronidazole 500 mg tablet 500 mg PO TID #30 tabs 01/13/23 02/16/23 fidaxomicin 200 mg tablet (Dificid) 200 mg PO Q12H #20 tabs 01/15/23 02/16/23 magnesium oxide 400 mg PO BID #30 tabs 01/15/23 02/16/23 lorazepam 0.5 mg tablet 0.5 mg PO QHS PRN anxiety #20 tabs 02/02/23 02/16/23 ondansetron HCl 4 mg tablet 4 mg PO Q6H PRN nausea and 02/02/23 02/16/23 vomiting #20 tabs fluticasone propionate 50 2 spray NS daily prn #16 grams 02/03/23 02/16/23 mcg/actuation nasal spray,suspension Saccharomyces boulardii 250 mg 250 mg PO BID #20 caps 02/10/23 02/16/23 capsule (Florastor) fosfomycin tromethamine 3 gram 3 g PO ONCE #1 ea 02/10/23 02/16/23 oral packet Previous Rx's Medication Instructions Recorded carboxymethylcellulose sodium 0.5 1 drp OU Q4H WHILE AWAKE #30 ea 06/20/ % eye drops in a dropperette (Refresh Plus) albuterol sulfate 90 mcg/actuation 2 puff inhalation QID PRN 02/08/22 aerosol inhaler (Ventolin HFA) shortness of breath or wheezing #8.5 grams amlodipine 10 mg tablet 10 mg PO DAILY #90 tabs 02/08/22 buspirone 5 mg tablet 5 mg PO BID #60 tabs 02/08/22 folic acid 1 mg tablet 1 mg PO DAILY #90 tabs 02/08/22 melatonin 3 mg capsule 6 mg PO HS #180 caps 02/08/22 metoprolol tartrate 50 mg tablet 50 mg PO DAILY #90 tabs 02/08/22 mirtazapine 7.5 mg tablet 7.5 mg PO QHS #90 tabs 02/08/22 sucralfate 1 gram tablet 1 g PO BID #60 tabs 02/08/22 thiamine HCl (vitamin B1) 100 mg 100 mg PO DAILY #90 tabs 02/08/22 tablet valacyclovir 500 mg tablet 500 mg PO DAILY #90 tabs 02/08/22 (Valtrex) budesonide 0.5 mg/2 mL suspension 0.5 mg (2 mL) inhalation DAILY #60 05/06/22 for nebulization (Pulmicort) mL pantoprazole 40 mg tablet,delayed 40 mg PO BID@0730,2000 #60 tabs 05/21/22 release cyanocobalamin (vitamin B-12) 500 1,000 mcg PO DAILY #180 tabs 07/10/22 mcg tablet (Vitamin B-12) ferrous sulfate 325 mg (65 mg 325 mg PO BID #180 tabs 07/10/22 iron) tablet multivitamin (Multiple Vitamins 1 tab PO DAILY #90 tabs 07/10/22 tablet) quetiapine 25 mg tablet See Rx Instructions PO BID #60 tabs 07/10/22 spironolactone 50 mg tablet 50 mg PO BID #180 tabs 07/10/22 (Aldactone) venlafaxine 75 mg capsule,extended 75 mg PO DAILY #90 caps 07/10/22 release 24 hr mirabegron 50 mg tablet,extended 50 mg PO DAILY #30 tabs 07/20/22 release 24 hr (Myrbetriq) aspirin 81 mg tablet,delayed 81 mg PO DAILY #90 tabs 08/05/22 release furosemide 20 mg tablet See Rx Instructions PO BID #180 08/11/22 tabs lidocaine 5 % topical patch 2 patch topical Q24H #30 ea 01/13/23 loperamide 2 mg capsule 2 mg PO Q4H PRN PRN #12 caps 01/13/23 metronidazole 500 mg tablet 500 mg PO TID #30 tabs 01/13/23 fidaxomicin 200 mg tablet (Dificid) 200 mg PO Q12H #20 tabs 01/15/23 magnesium oxide 400 mg PO BID #30 tabs 01/15/23 lorazepam 0.5 mg tablet 0.5 mg PO QHS PRN anxiety #20 tabs 02/02/23 ondansetron HCl 4 mg tablet 4 mg PO Q6H PRN nausea and 02/02/23 vomiting #20 tabs fluticasone propionate 50 2 spray NS daily prn #16 grams 02/03/23 mcg/actuation nasal spray,suspension Saccharomyces boulardii 250 mg 250 mg PO BID #20 caps 02/10/23 capsule (Florastor) fosfomycin tromethamine 3 gram 3 g PO ONCE #1 ea 02/10/23 oral packet Allergies Allergy/AdvReac Type Severity Reaction Status Date / Time Penicillins Allergy Mild Rash Verified 02/16/23 08:34 ramipril Allergy Unknown ITCHING Verified 02/16/23 08:34 meperidine [From Demerol] AdvReac Severe Nausea Verified 02/16/23 08:34 bupropion AdvReac Mild GI upset Verified 02/16/23 08:34 AMBER Inhibitors AdvReac Unknown COUGH Verified 02/16/23 08:34 alendronate sodium AdvReac Unknown GI Distress Verified 02/16/23 08:34 clarithromycin AdvReac Unknown intolerant Verified 02/16/23 08:34 paroxetine AdvReac Unknown Diarrhea Verified 02/16/23 08:34 General Stated Complaint: Nausea/Vomit/Diar JORDAN: 3 PFSH All Active Problems (Updated 02/16/23 @ 13:42 by CELINA Snow) Anemia (Chronic) Portal hypertension (Acute) Leukopenia (Acute) Macrocytic anemia (Acute) Hypokalemia (Acute) Hypomagnesemia (Acute) Shortness of breath (Acute) Lung cancer (Chronic) RUL Abdominal pain (Acute) Leukopenia (Acute) Thrombocytopenia (Chronic) Hypomagnesemia (Acute) Elevated LFTs (Acute) Macrocytic anemia (Acute) Pelvic mass (Acute) Pneumothorax after biopsy (Acute) 01/19/23 Per [facility] CXR. -hb Soft tissue mass (Acute) 12/29/22 PET at [facility] Avid lobulated pre-sacral. -hb Hypokalemia (Acute) Alcohol abuse (Chronic) DVT prophylaxis (Acute) Multiple rib fractures (Chronic) 03/11/19 [facility] Alcohol withdrawal (Acute) Hypomagnesemia (Acute) Breast nodule (Acute) Sleep disturbance (Acute) Sinus tachycardia (Acute) High anion gap metabolic acidosis (Acute) Elevated blood pressure reading with diagnosis of hypertension (Acute) Pincer nail deformity (Acute) Insomnia (Acute) Thrombocytopenia (Chronic) Elevated bilirubin (Acute) Mixed stress and urge urinary incontinence (Acute) Thyroid nodule (Acute) Anxiety (Chronic) Adverse effect of metronidazole (Acute) Medication monitoring encounter (Acute) Advance care planning (Acute) Cirrhosis of liver with ascites (Acute) Animal bite of right hand with infection (Acute) Umbilical hernia (Acute) Hyperbilirubinemia (Acute) Shortness of breath (Acute) Elevated blood pressure reading without diagnosis of hypertension (Acute) Left arm pain (Acute) Ambulatory dysfunction (Acute) Incontinence (Acute) Anorexia (Acute) Headache (Acute) Depression (Chronic) Chest pain (Acute) Foot pain, right (Acute) Tendinitis of left rotator cuff (Acute) Macrocytosis (Acute 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 Leukopenia (Acute) Headache (Acute) Epigastric abdominal pain (Acute) Calcific tendinitis of left shoulder (Acute) Pulmonary mass (Acute) spiculated mass Pneumonia (Acute) Depression with suicidal ideation (Acute) Alcohol abuse (Chronic) Diarrhea (Acute) Epigastric pain (Acute) Dehydration (Acute) Discharge planning issues (Acute) Difficult intravenous access (Acute) Multiple IV attempts, usually requires ultrasound placement. PTSD (post-traumatic stress disorder) (Acute) Anemia (Chronic) Depression (Chronic) Foot pain, right (Acute) T12 compression fracture (Acute) Presacral mass (Chronic) Deviated nasal septum (Acute) Frequent falls (Chronic) Head injury (Acute) Ambulatory dysfunction (Chronic) Shoulder pain, right (Chronic) Suicidal ideation (Acute) Dry eye (Acute) Pruritus (Acute) Dystrophic nail (Acute) AMBER (acute kidney injury) (Acute) Iron deficiency anemia (Chronic) Fall (Acute) Atelectasis of left lung (Chronic) Advance directive on file (Acute) Nodule of upper lobe of right lung (Acute ~09/13/18) 01/19/23 Increased in size per [facility]. 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) pls refrain from alcohol Chronic alcoholism she will not stop drinking unless she checks with me, so that we can help her avert withdrawal I do not think she is capable on her own--she would need placement to achieve required goal of 3 months of sobriety Chronic diarrhea Closed right humeral fracture Corneal ulcer, right (~08/23/18) 08/23/18; [facility]- Fracture of humerus, left, closed Genital herpes simplex recurrent gential; suppressive Valtrex GERD (gastroesophageal reflux disease) GI bleed (12/20/16) Hypertension Hypokalemia Hypomagnesemia Incidental lung nodule, greater than or equal to 8mm 1cm, spiculated, stable for many years, recommend f/u in 6 mo Non-cardiac chest pain (09/21/16) [facility] 09/21/16 NEGATIVE MP Osteoarthritis Palliative care patient (03/21/17) Pancreatitis, alcoholic, acute Peripheral edema Photophobia of right eye Pleural effusion on left 03/11/19 [facility] Presacral mass (~09/15/18) 09/15/18 [facility] Sciatica right, epidural injuections [facility] Tubular adenoma of colon (01/28/17) Urinary incontinence 01/24/13 urethral suspension and sling at [facility] (bladder suspension 1991) 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 Bladder repair. Repair bladder injury, simple S/P laparoscopic cholecystectomy (~05/19/22) Family History Mother No problems noted. Father , DROWNED at age 50. No problems noted. Sister Personal history of malignant neoplasm MELANOMA Sister No problems noted. Grandfather Personal history of malignant neoplasm STOMACH Grandfather Personal history of malignant neoplasm PROSTATE Grandmother Heart disease IA Acute ill-defined cerebrovascular disease Grandmother Personal history of malignant neoplasm UTERINE Aunt , IA Heart disease IA Aunt , IA Heart disease Brother No problems noted. Social History Smoking/Tobacco Use Status: Never Smoking risk assessment performed?: Yes Alcohol Intake: current Alcohol Intake frequency: 3 or more drinks per day Alcohol type: hard liquor Drug use: Never Substance use type: does not use Details: Last alcoholic drink Mike zhong, 2 days ago Current gender identity: female Do you feel safe at home: Yes Do you feel safe in your relationship?: No Additional Social history: Has 1 dog, 4 cats. Exam Narrative Exam Narrative: Patient is disheveled, alert and oriented, appears chronically ill, pupils equal round reactive to light and accommodation, lungs clear to auscultation, sinus tachycardia, lungs clear to auscultation, mild diffuse abdominal tenderness, abdominal distention, no rebound or guarding, alert and oriented x4, no peripheral edema, distal pulses intact Course Vital Signs Vital signs: Vital Signs Temperature 37.3 C 02/16/23 08:24 Pulse 110 H 02/16/23 08:24 Respiratory Rate 16 02/16/23 08:24 Blood Pressure 139/78 02/16/23 08:24 Temperature 37.3 C 02/16/23 08:24 Temperature Source Oral 02/16/23 08:24 Pulse 81 02/16/23 09:29 Pulse 97 H 02/16/23 09:30 Respiratory Rate 23 02/16/23 09:30 Blood Pressure 122/71 02/16/23 09:29 Blood Pressure Mean 84 02/16/23 09:29 Blood Pressure Position Supine 02/16/23 08:24 Oxygen Delivery Method Room Air 02/16/23 08:24 Oxygen Flow Rate 0 02/16/23 08:24 Pain Level 7 02/16/23 08:24 Lab/Test Results Lab/Test Results: 02/16/23 10:30 Urine - Reflex from Ua Urine Culture - Pending Laboratory Tests Range/Units 02/16/23 02/16/23 02/16/23 08:55 08:55 08:55 WBC (4.4-10.8) 10^3/uL 2.93 L RBC (3.93-5.22) 10^6/uL 2.18 L Hgb (11.2-15.7) g/dL 7.1 L Hct (36.0-46.0) % 22.4 L MCV (80-95) fL 103 H MCH (27.0-33.0) pg 32.6 MCHC (32.0-36.0) % 31.7 L RDW (11.7-14.6) % 19.1 H Plt Count (130-400) 10^3/uL 177 MPV (8.0-11.0) fL 8.8 Immature Gran % 0.7 Neutrophils % 71.0 Lymphocytes % 16.4 Monocytes % 10.9 Eosinophils % 0.3 Basophils % 0.7 Nucleated RBC % (0.0-0.3) % 0.0 Absolute Neutrophils (1.2-6.7) 10^3/uL 2.08 Absolute Lymphocytes (1.2-3.4) 10^3/uL 0.48 L Absolute Monocytes (0.1-0.8) 10^3/uL 0.32 Absolute Eosinophils (0.0-0.7) 10^3/uL 0.01 Absolute Basophils (0.0-0.2) 10^3/uL 0.02 RBC Morphology See Below Polychromasia Present Hypochromasia 2+ PT (9.3-11.0) sec INR (0.9-1.1) Sodium (136-145) mmol/L 137 Potassium (3.5-5.1) mmol/L 3.6 Chloride (98-107) mmol/L 98 Carbon Dioxide (21.0-32.0) mmol/L 26.8 Anion Gap (3-11) mmol/L 12.2 H BUN (7-18) mg/dL 15 Creatinine (0.55-1.02) mg/dL 0.9 Est GFR (CKD-EPI 2020) (mL/min/1.73m2) 66.26 Glucose (74-106) mg/dL 131 H Calcium (8.5-10.1) mg/dL 8.4 L Magnesium (1.8-2.4) mg/dL 1.4 L Total Bilirubin (0.2-1.0) mg/dL 1.7 H AST (15-37) U/L 40 H ALT (14-59) U/L 16 Alkaline Phosphatase (46-116) U/L 184 H Total Protein (6.4-8.2) g/dL 5.8 L Albumin (3.4-5.0) g/dL 2.9 L Lipase (16-77) U/L 26 Vitamin B12 (193-986) pg/mL Urine Color (Yellow) Urine Clarity (Clear) Urine pH (5-8) Ur Specific Triplett (1.005-1.025) Urine Protein (Negative) mg/dL Urine Ketones (Negative) mg/dL Urine Blood (Negative) Urine Nitrite (Negative) Urine Bilirubin (Negative) Urine Urobilinogen (Up to 0.2) mg/dL Ur Leukocyte Esterase (Negative) Urine RBC (0-2) HPF Urine WBC (0-5) HPF Ur Epithelial Cells (Negative) HPF Urine Crystals (Negative) HPF Urine Bacteria (Negative) HPF Urine Casts (Negative) LPF Urine Mucus (Negative) Ur Culture Indicated? Urine Glucose (Negative) mg/dL Ethyl Alcohol (<10) mg/dL 52.7 H Patient ABO/Rh Antibody Screen Crossmatch Range/Units 02/16/23 02/16/23 02/16/23 08:55 10:30 10:38 WBC (4.4-10.8) 10^3/uL RBC (3.93-5.22) 10^6/uL Hgb (11.2-15.7) g/dL Hct (36.0-46.0) % MCV (80-95) fL MCH (27.0-33.0) pg MCHC (32.0-36.0) % RDW (11.7-14.6) % Plt Count (130-400) 10^3/uL MPV (8.0-11.0) fL Immature Gran % Neutrophils % Lymphocytes % Monocytes % Eosinophils % Basophils % Nucleated RBC % (0.0-0.3) % Absolute Neutrophils (1.2-6.7) 10^3/uL Absolute Lymphocytes (1.2-3.4) 10^3/uL Absolute Monocytes (0.1-0.8) 10^3/uL Absolute Eosinophils (0.0-0.7) 10^3/uL Absolute Basophils (0.0-0.2) 10^3/uL RBC Morphology Polychromasia Hypochromasia PT (9.3-11.0) sec 12.2 H INR (0.9-1.1) 1.2 H Sodium (136-145) mmol/L Potassium (3.5-5.1) mmol/L Chloride (98-107) mmol/L Carbon Dioxide (21.0-32.0) mmol/L Anion Gap (3-11) mmol/L BUN (7-18) mg/dL Creatinine (0.55-1.02) mg/dL Est GFR (CKD-EPI 2020) (mL/min/1.73m2) Glucose (74-106) mg/dL Calcium (8.5-10.1) mg/dL Magnesium (1.8-2.4) mg/dL Total Bilirubin (0.2-1.0) mg/dL AST (15-37) U/L ALT (14-59) U/L Alkaline Phosphatase (46-116) U/L Total Protein (6.4-8.2) g/dL Albumin (3.4-5.0) g/dL Lipase (16-77) U/L Vitamin B12 (193-986) pg/mL 437 Urine Color (Yellow) Yellow Urine Clarity (Clear) Cloudy Urine pH (5-8) 7.0 Ur Specific Triplett (1.005-1.025) 1.015 Urine Protein (Negative) mg/dL 100 H Urine Ketones (Negative) mg/dL 40 H Urine Blood (Negative) Negative Urine Nitrite (Negative) Negative Urine Bilirubin (Negative) Moderate H Urine Urobilinogen (Up to 0.2) mg/dL 2.0 H Ur Leukocyte Esterase (Negative) Trace H Urine RBC (0-2) HPF 0-2 Urine WBC (0-5) HPF 3-5 Ur Epithelial Cells (Negative) HPF Rare Urine Crystals (Negative) HPF Negative Urine Bacteria (Negative) HPF Many Urine Casts (Negative) LPF Negative Urine Mucus (Negative) Trace Ur Culture Indicated? Yes Urine Glucose (Negative) mg/dL Negative Ethyl Alcohol (<10) mg/dL Patient ABO/Rh Antibody Screen Crossmatch Range/Units 02/16/23 02/16/23 10:38 11:08 WBC (4.4-10.8) 10^3/uL 2.19 L RBC (3.93-5.22) 10^6/uL 1.87 L Hgb (11.2-15.7) g/dL 6.1 L* Hct (36.0-46.0) % 19.4 L* MCV (80-95) fL 104 H MCH (27.0-33.0) pg 32.6 MCHC (32.0-36.0) % 31.4 L RDW (11.7-14.6) % 19.2 H Plt Count (130-400) 10^3/uL 131 MPV (8.0-11.0) fL 8.7 Immature Gran % 0.9 Neutrophils % 66.2 Lymphocytes % 20.5 Monocytes % 11.4 Eosinophils % 0.5 Basophils % 0.5 Nucleated RBC % (0.0-0.3) % 0.0 Absolute Neutrophils (1.2-6.7) 10^3/uL 1.45 Absolute Lymphocytes (1.2-3.4) 10^3/uL 0.45 L Absolute Monocytes (0.1-0.8) 10^3/uL 0.25 Absolute Eosinophils (0.0-0.7) 10^3/uL 0.01 Absolute Basophils (0.0-0.2) 10^3/uL 0.01 RBC Morphology See Below Polychromasia Hypochromasia 3+ PT (9.3-11.0) sec INR (0.9-1.1) Sodium (136-145) mmol/L Potassium (3.5-5.1) mmol/L Chloride (98-107) mmol/L Carbon Dioxide (21.0-32.0) mmol/L Anion Gap (3-11) mmol/L BUN (7-18) mg/dL Creatinine (0.55-1.02) mg/dL Est GFR (CKD-EPI 2020) (mL/min/1.73m2) Glucose (74-106) mg/dL Calcium (8.5-10.1) mg/dL Magnesium (1.8-2.4) mg/dL Total Bilirubin (0.2-1.0) mg/dL AST (15-37) U/L ALT (14-59) U/L Alkaline Phosphatase (46-116) U/L Total Protein (6.4-8.2) g/dL Albumin (3.4-5.0) g/dL Lipase (16-77) U/L Vitamin B12 (193-986) pg/mL Urine Color (Yellow) Urine Clarity (Clear) Urine pH (5-8) Ur Specific Triplett (1.005-1.025) Urine Protein (Negative) mg/dL Urine Ketones (Negative) mg/dL Urine Blood (Negative) Urine Nitrite (Negative) Urine Bilirubin (Negative) Urine Urobilinogen (Up to 0.2) mg/dL Ur Leukocyte Esterase (Negative) Urine RBC (0-2) HPF Urine WBC (0-5) HPF Ur Epithelial Cells (Negative) HPF Urine Crystals (Negative) HPF Urine Bacteria (Negative) HPF Urine Casts (Negative) LPF Urine Mucus (Negative) Ur Culture Indicated? Urine Glucose (Negative) mg/dL Ethyl Alcohol (<10) mg/dL Patient ABO/Rh A Negative Antibody Screen NEGATIVE Crossmatch See Detail PAWSS Have you Been Recently Intoxicated or Drunk Within the Last 30 days?: Yes Have you Ever Experienced Previous Episodes of Alcohol Withdrawal?: Yes Have you ever Experienced Withdrawal Seizures?: No Have you ever Experienced Delirium Tremens(DT)s?: No Have you ever undergone Alcohol Rehabilitation Treatment (i.e, inpt ot outpatient treatment programs)?: Yes Have you ever Experienced Blackouts?: No Have you ever Combined Alcohol with other Downers within the last 90 days?: No Have you ever Combined Alcohol with any other Substance of Abuse during the last 90 days?: No Evidence of Increased Autonomic Activity (i.e. HR>120, tremor, sweating, agitation, nausea)?: No Result: 3
--- NOTE | 2023-02-16 12:55 | SCONE_ITS ---
Date of service: 02/16/23 Time of Service: 12:55 Assessment and Plan Assessment and plan (1) Anemia: Status: Chronic Assessment and plan: Acute on Chronic Anemia with negative occult blood. Patient with known cirrhosis and portal hypertension. Portal Hypertension may cause diffuse gastritis. Without evidence of hematemesis or melena intervention is not indicated at this time. Recommend Protonix 80 mg Bid and Carafate 1 gm Q6H Recommend checking reticulocyte count, serum iron, serum ferritin, Transferin saturation and Hepcidin. Patients Child-Soler Class B- moderately severe liver disease (2) Cirrhosis of liver with ascites: Status: Acute (3) Portal hypertension: Status: Acute History of Present Illness Narrative: Ms Ingram is a pleasant 77-year-old female who is a known alcoholic and has chronic anemia comes into the emergency department complaining of weakness, nausea, vomiting and diarrhea. She denies dark tarry stools or bright red blood per rectum. She tells me that the symptoms have been going on for months. She has had 8 CT scans of the abdomen and pelvis and several of her chest this year alone. Last CT of the abdomen and pelvis was done on [address] scan shows liver cirrhosis and portal hypertension. She has already had her cholecystectomy out. There was no thickening of the bowel. The patient complains of right upper quadrant and left flank pain which has been going on for months. CT scan of the chest shows no varices. Stool in the ER was negative for blood. She denies hematemesis. Consults Consult date: 02/16/23 Requesting physician: Laly Dumont Review of Systems Constitutional Constitutional: Reports as per HPI, Denies fever(s), Denies headache(s) and Denies weight loss ENT Ears, Nose, Mouth, and Throat: Denies dysphagia and Denies headache(s) Cardiovascular Cardiovascular: Denies chest pain, Denies chest pain at rest, Denies irregular heart rhythm, Denies palpitations, Denies dyspnea and Denies dyspnea on exertion Respiratory Respiratory: Denies dyspnea and Denies dyspnea on exertion Gastrointestinal Gastrointestinal: Reports as per HPI and Denies dysphagia Genitourinary Genitourinary: Reports system reviewed and no additional complaints, except as documented Musculoskeletal Musculoskeletal: Reports system reviewed and no additional complaints, except as documented Integumentary/Breasts Skin/Breast: Reports system reviewed and no additional complaints, except as documented Neurologic Neurologic: Reports system reviewed and no additional complaints, except as documented and Denies headache(s) Endocrine Endocrine: Reports system reviewed and no additional complaints, except as documented and Denies palpitations [facility] All Active Problems (Updated 02/16/23 @ 13:42 by CELINA Snow) Anemia (Chronic) Portal hypertension (Acute) Leukopenia (Acute) Macrocytic anemia (Acute) Hypokalemia (Acute) Hypomagnesemia (Acute) Shortness of breath (Acute) Lung cancer (Chronic) RUL Abdominal pain (Acute) Leukopenia (Acute) Thrombocytopenia (Chronic) Hypomagnesemia (Acute) Elevated LFTs (Acute) Macrocytic anemia (Acute) Pelvic mass (Acute) Pneumothorax after biopsy (Acute) 01/19/23 Per [facility] CXR. -hb Soft tissue mass (Acute) 12/29/22 PET at [facility] Avid lobulated pre-sacral. -hb Hypokalemia (Acute) Alcohol abuse (Chronic) DVT prophylaxis (Acute) Multiple rib fractures (Chronic) 03/11/19 [facility] Alcohol withdrawal (Acute) Hypomagnesemia (Acute) Breast nodule (Acute) Sleep disturbance (Acute) Sinus tachycardia (Acute) High anion gap metabolic acidosis (Acute) Elevated blood pressure reading with diagnosis of hypertension (Acute) Pincer nail deformity (Acute) Insomnia (Acute) Thrombocytopenia (Chronic) Elevated bilirubin (Acute) Mixed stress and urge urinary incontinence (Acute) Thyroid nodule (Acute) Anxiety (Chronic) Adverse effect of metronidazole (Acute) Medication monitoring encounter (Acute) Advance care planning (Acute) Cirrhosis of liver with ascites (Acute) Animal bite of right hand with infection (Acute) Umbilical hernia (Acute) Hyperbilirubinemia (Acute) Shortness of breath (Acute) Elevated blood pressure reading without diagnosis of hypertension (Acute) Left arm pain (Acute) Ambulatory dysfunction (Acute) Incontinence (Acute) Anorexia (Acute) Headache (Acute) Depression (Chronic) Chest pain (Acute) Foot pain, right (Acute) Tendinitis of left rotator cuff (Acute) Macrocytosis (Acute 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 Leukopenia (Acute) Headache (Acute) Epigastric abdominal pain (Acute) Calcific tendinitis of left shoulder (Acute) Pulmonary mass (Acute) spiculated mass Pneumonia (Acute) Depression with suicidal ideation (Acute) Alcohol abuse (Chronic) Diarrhea (Acute) Epigastric pain (Acute) Dehydration (Acute) Discharge planning issues (Acute) Difficult intravenous access (Acute) Multiple IV attempts, usually requires ultrasound placement. PTSD (post-traumatic stress disorder) (Acute) Anemia (Chronic) Depression (Chronic) Foot pain, right (Acute) T12 compression fracture (Acute) Presacral mass (Chronic) Deviated nasal septum (Acute) Frequent falls (Chronic) Head injury (Acute) Ambulatory dysfunction (Chronic) Shoulder pain, right (Chronic) Suicidal ideation (Acute) Dry eye (Acute) Pruritus (Acute) Dystrophic nail (Acute) AMBER (acute kidney injury) (Acute) Iron deficiency anemia (Chronic) Fall (Acute) Atelectasis of left lung (Chronic) Advance directive on file (Acute) Nodule of upper lobe of right lung (Acute ~09/13/18) 01/19/23 Increased in size per [facility]. 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) pls refrain from alcohol Chronic alcoholism she will not stop drinking unless she checks with me, so that we can help her avert withdrawal I do not think she is capable on her own--she would need placement to achieve required goal of 3 months of sobriety Chronic diarrhea Closed right humeral fracture Corneal ulcer, right (~08/23/18) 08/23/18; [facility] Fracture of humerus, left, closed Genital herpes simplex recurrent gential; suppressive Valtrex GERD (gastroesophageal reflux disease) GI bleed (12/20/16) Hypertension Hypokalemia Hypomagnesemia Incidental lung nodule, greater than or equal to 8mm 1cm, spiculated, stable for many years, recommend f/u in 6 mo Non-cardiac chest pain (09/21/16) [facility] 09/21/16 NEGATIVE MP Osteoarthritis Palliative care patient (03/21/17) Pancreatitis, alcoholic, acute Peripheral edema Photophobia of right eye Pleural effusion on left 03/11/19 [facility] Presacral mass (~09/15/18) 09/15/18 [facility] Sciatica right, epidural injuections [facility] Tubular adenoma of colon (01/28/17) Urinary incontinence 01/24/13 urethral suspension and sling at [facility] (bladder suspension 1991) 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 Bladder repair. Repair bladder injury, simple S/P laparoscopic cholecystectomy (~05/19/22) Family History Mother No problems noted. Father , DROWNED at age 50. No problems noted. Sister Personal history of malignant neoplasm MELANOMA Sister No problems noted. Grandfather Personal history of malignant neoplasm STOMACH Grandfather Personal history of malignant neoplasm PROSTATE Grandmother Heart disease MA Acute ill-defined cerebrovascular disease Grandmother Personal history of malignant neoplasm UTERINE Aunt , MA Heart disease MA Aunt , MA Heart disease Brother No problems noted. Social History Smoking/Tobacco Use Status: Never Smoking risk assessment performed?: Yes Alcohol Intake: current Alcohol Intake frequency: 3 or more drinks per day Alcohol type: hard liquor Drug use: Never Substance use type: does not use Details: Last alcoholic drink [employer], 2 days ago Current gender identity: female Do you feel safe at home: Yes Do you feel safe in your relationship?: No Additional Social history: Has 1 dog, 4 cats. Exam Const General: cooperative, no acute distress and frail appearing Nutritional Appearance: malnourished Orientation: alert [facility] Head: normocephalic and atraumatic Resp Effort & Inspection: normal respiratory effort Auscultation: clear to auscultation bilaterally Cardio Rate: tachycardic Rhythm: regular rhythm Heart Sounds: no gallops, no murmurs and no rubs GI Inspection: distended Palpation: soft, hepatomegaly, tender (RUQ and LUQ, no rebound or guarding) and ascites Auscultation: normal bowel sounds Results Last Vital Signs Temp 98 F 02/16/23 12:44 Pulse 101 H 02/16/23 12:44 Resp 20 02/16/23 12:44 BP 120/31 L 02/16/23 12:44 Pulse Ox 94 02/16/23 12:44 Labs 02/16/23 11:08 02/16/23 08:55 Labs: Laboratory Results - last 24 hr 02/16/23 02/16/23 02/16/23 08:55 08:55 08:55 WBC 2.93 L RBC 2.18 L Hgb 7.1 L Hct 22.4 L MCV 103 H MCH 32.6 MCHC 31.7 L RDW 19.1 H Plt Count 177 MPV 8.8 Immature Gran % 0.7 Neutrophils % 71.0 Lymphocytes % 16.4 Monocytes % 10.9 Eosinophils % 0.3 Basophils % 0.7 Nucleated RBC % 0.0 Absolute Neutrophils 2.08 Absolute Lymphocytes 0.48 L Absolute Monocytes 0.32 Absolute Eosinophils 0.01 Absolute Basophils 0.02 RBC Morphology See Below Polychromasia Present Hypochromasia 2+ PT INR Sodium 137 Potassium 3.6 Chloride 98 Carbon Dioxide 26.8 Anion Gap 12.2 H BUN 15 Creatinine 0.9 Est GFR (CKD-EPI 2020) 66.26 Glucose 131 H Calcium 8.4 L Magnesium 1.4 L Total Bilirubin 1.7 H AST 40 H ALT 16 Alkaline Phosphatase 184 H Total Protein 5.8 L Albumin 2.9 L Lipase 26 Vitamin B12 Urine Color Urine Clarity Urine pH Ur Specific [place] Urine Protein Urine Ketones Urine Blood Urine Nitrite Urine Bilirubin Urine Urobilinogen Ur Leukocyte Esterase Urine RBC Urine WBC Ur Epithelial Cells Urine Crystals Urine Bacteria Urine Casts Urine Mucus Ur Culture Indicated? Urine Glucose Ethyl Alcohol 52.7 H Patient ABO/Rh Antibody Screen Crossmatch 02/16/23 02/16/23 02/16/23 08:55 10:30 10:38 WBC RBC Hgb Hct MCV MCH MCHC RDW Plt Count MPV Immature Gran % Neutrophils % Lymphocytes % Monocytes % Eosinophils % Basophils % Nucleated RBC % Absolute Neutrophils Absolute Lymphocytes Absolute Monocytes Absolute Eosinophils Absolute Basophils RBC Morphology Polychromasia Hypochromasia PT 12.2 H INR 1.2 H Sodium Potassium Chloride Carbon Dioxide Anion Gap BUN Creatinine Est GFR (CKD-EPI 2020) Glucose Calcium Magnesium Total Bilirubin AST ALT Alkaline Phosphatase Total Protein Albumin Lipase Vitamin B12 437 Urine Color Yellow Urine Clarity Cloudy Urine pH 7.0 Ur Specific [place] 1.015 Urine Protein 100 H Urine Ketones 40 H Urine Blood Negative Urine Nitrite Negative Urine Bilirubin Moderate H Urine Urobilinogen 2.0 H Ur Leukocyte Esterase Trace H Urine RBC 0-2 Urine WBC 3-5 Ur Epithelial Cells Rare Urine Crystals Negative Urine Bacteria Many Urine Casts Negative Urine Mucus Trace Ur Culture Indicated? Yes Urine Glucose Negative Ethyl Alcohol Patient ABO/Rh Antibody Screen Crossmatch 02/16/23 02/16/23 10:38 11:08 WBC 2.19 L RBC 1.87 L Hgb 6.1 L* Hct 19.4 L* MCV 104 H MCH 32.6 MCHC 31.4 L RDW 19.2 H Plt Count 131 MPV 8.7 Immature Gran % 0.9 Neutrophils % 66.2 Lymphocytes % 20.5 Monocytes % 11.4 Eosinophils % 0.5 Basophils % 0.5 Nucleated RBC % 0.0 Absolute Neutrophils 1.45 Absolute Lymphocytes 0.45 L Absolute Monocytes 0.25 Absolute Eosinophils 0.01 Absolute Basophils 0.01 RBC Morphology See Below Polychromasia Hypochromasia 3+ PT INR Sodium Potassium Chloride Carbon Dioxide Anion Gap BUN Creatinine Est GFR (CKD-EPI 2020) Glucose Calcium Magnesium Total Bilirubin AST ALT Alkaline Phosphatase Total Protein Albumin Lipase Vitamin B12 Urine Color Urine Clarity Urine pH Ur Specific [place] Urine Protein Urine Ketones Urine Blood Urine Nitrite Urine Bilirubin Urine Urobilinogen Ur Leukocyte Esterase Urine RBC Urine WBC Ur Epithelial Cells Urine Crystals Urine Bacteria Urine Casts Urine Mucus Ur Culture Indicated? Urine Glucose Ethyl Alcohol Patient ABO/Rh A Negative Antibody Screen NEGATIVE Crossmatch See Detail Imaging Abdomen CT scan report/results: report reviewed and image reviewed CT scan - chest: report reviewed and image reviewed CT scan - pelvis: report reviewed and image reviewed
[2023-02-16] MEDS: Sucralfate 1 GM TAB PO ×2 (14:09→19:55)
[2023-02-16] MEDS: Normal Saline Flush 10 ML SYR IVP ×3 (15:05→22:40)
--- NOTE | 2023-02-16 16:21 | HPE_ITS ---
Date of service: 02/16/23 Time of Service: 16:21 Assessment and Plan Assessment and plan (1) Acute on chronic anemia: Status: Acute Assessment and plan: She was reportedly hematest negative in the ED< but we are going to be verifying this should stools recur. S/p 1 unit pRBCS. Follow up H/H is pending. Treat for a presumed GI source with IV protonix + carafate. NPO. General surgery is consulted. She does have a h/o cirrhosis, but does not appear to be having a variceal bleed at this time. (2) Abdominal pain: Status: Acute Assessment and plan: I am concerned about the fact that it doesn't appear that Leticia finished her C.diff antibiotic course. I am concerned about how tender she is and would like for her to have a CT of her abdomen/pelvis to ensure she does not have a complication of C diff such as perforation of toxic megacolon. (3) Diarrhea: Status: Acute Assessment and plan: As above Check C.diff. Suspect that she will need to restart therapy. (4) Alcohol abuse: Status: Chronic Assessment and plan: MOnitor for EtOH w/d. (5) Portal hypertension: Status: Chronic Assessment and plan: at risk of portal gastropathy and varices. As above (6) Hypomagnesemia: Status: Acute Assessment and plan: Repleted in the ED. Recheck in am. (7) DVT prophylaxis: Status: Acute Assessment and plan: SCDs Chemical DVT ppx is contraindicated in setting of suspected acute bleeding (8) Discharge planning issues: Status: Acute Assessment and plan: DNR/DNI Admit to the ICU. Total Critical Care Time 60 minutes. History of Present Illness History of Present Illness Chief Complaint: Abdominal pain, nausea, diarrhea, thirst Narrative: Ms Ingram is a 77 year old female with PMHx of EtOH abuse, portal hyp ertension, recent admission for C.Diff colitis, chronic anemia, who presented to [facility] ED today c/o diffuse abdominal pain since last night as well as nausea. The patient states she vomited once last night. She cannot tell me about the color of her diarrhea. She is not sure what C. DIff is or if she finished her antibiotics for it. She had 3 bouts of diarrhea last night, she states, and she also had diarrhea this am. The patient states her Upper front teeth are painful and that she went to the dentist sometime last week and was told she had a dental infection but had not yet had a chance to take antibiotics for that. In the ED, she was found to be hemoccult negative but her hemoglobin went from 9.3 on 02/05 to 8.0 on 02/13 to 7.1 this morning at 08:55 in the ER to 6.1 at 11:08. She also reportedly had a nontender abdomen in the ER. The patient was written for a unit of pRBCs, general surgery was consulted with no immediate plans for endoscopy, and a hospitalist admission to the ICU was requested. Review of Systems Narrative: The patient reports an occasional CP radiating from L to the R (not now), Chronic R eye vision loss, chronic dizziness, though not now. All systems reviewed & are unremarkable except as noted in HPI and below PFSH All Active Problems (Updated 02/16/23 @ 16:51 by Laly Dumont MD) Acute on chronic anemia (Acute) Anemia (Chronic) Portal hypertension (Chronic) Leukopenia (Acute) Macrocytic anemia (Acute) Hypokalemia (Acute) Hypomagnesemia (Acute) Shortness of breath (Acute) Lung cancer (Chronic) RUL Abdominal pain (Acute) Leukopenia (Acute) Thrombocytopenia (Chronic) Hypomagnesemia (Acute) Elevated LFTs (Acute) Macrocytic anemia (Acute) Pelvic mass (Acute) Pneumothorax after biopsy (Acute) 01/19/[address] [facility] CXR. -hb Soft tissue mass (Acute) 12/29/[address] [facility] Avid lobulated pre-sacral. -hb Hypokalemia (Acute) Alcohol abuse (Chronic) DVT prophylaxis (Acute) Multiple rib fractures (Chronic) 03/11/19 [facility] [facility] Alcohol withdrawal (Acute) Hypomagnesemia (Acute) Breast nodule (Acute) Sleep disturbance (Acute) Sinus tachycardia (Acute) High anion gap metabolic acidosis (Acute) Elevated blood pressure reading with diagnosis of hypertension (Acute) Pincer nail deformity (Acute) Insomnia (Acute) Thrombocytopenia (Chronic) Elevated bilirubin (Acute) Mixed stress and urge urinary incontinence (Acute) Thyroid nodule (Acute) Anxiety (Chronic) Adverse effect of metronidazole (Acute) Medication monitoring encounter (Acute) Advance care planning (Acute) Cirrhosis of liver with ascites (Acute) Animal bite of right hand with infection (Acute) Umbilical hernia (Acute) Hyperbilirubinemia (Acute) Shortness of breath (Acute) Elevated blood pressure reading without diagnosis of hypertension (Acute) Left arm pain (Acute) Ambulatory dysfunction (Acute) Incontinence (Acute) Anorexia (Acute) Headache (Acute) Depression (Chronic) Chest pain (Acute) Foot pain, right (Acute) Tendinitis of left rotator cuff (Acute) Macrocytosis (Acute 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 Leukopenia (Acute) Headache (Acute) Epigastric abdominal pain (Acute) Calcific tendinitis of left shoulder (Acute) Pulmonary mass (Acute) spiculated mass Pneumonia (Acute) Depression with suicidal ideation (Acute) Alcohol abuse (Chronic) Diarrhea (Acute) Epigastric pain (Acute) Dehydration (Acute) Discharge planning issues (Acute) Difficult intravenous access (Acute) Multiple IV attempts, usually requires ultrasound placement. PTSD (post-traumatic stress disorder) (Acute) Anemia (Chronic) Depression (Chronic) Foot pain, right (Acute) T12 compression fracture (Acute) Presacral mass (Chronic) Deviated nasal septum (Acute) Frequent falls (Chronic) Head injury (Acute) Ambulatory dysfunction (Chronic) Shoulder pain, right (Chronic) Suicidal ideation (Acute) Dry eye (Acute) Pruritus (Acute) Dystrophic nail (Acute) AMBER (acute kidney injury) (Acute) Iron deficiency anemia (Chronic) Fall (Acute) Atelectasis of left lung (Chronic) Advance directive on file (Acute) Nodule of upper lobe of right lung (Acute ~09/13/18) 01/19/23 [address] size [address] [facility]. 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) pls refrain from alcohol Chronic alcoholism she will not stop drinking unless she checks with me, so that we can help her avert withdrawal I do not think she is capable on her own--she would need placement to achieve required goal of 3 months of sobriety Chronic diarrhea Closed right humeral fracture Corneal ulcer, right (~08/23/18) 08/23/18; [facility] Fracture of humerus, left, closed Genital herpes simplex recurrent gential; suppressive Valtrex GERD (gastroesophageal reflux disease) GI bleed (12/20/16) Hypertension Hypokalemia Hypomagnesemia Incidental lung nodule, greater than or equal to 8mm 1cm, spiculated, stable for many years, recommend f/u in 6 mo Non-cardiac chest pain (09/21/16) [facility] 09/21/16 NEGATIVE MP Osteoarthritis Palliative care patient (03/21/17) Pancreatitis, alcoholic, acute Peripheral edema Photophobia of right eye Pleural effusion on left 03/11/19 [facility] Presacral mass (~09/15/18) 09/15/18 [facility] Sciatica right, epidural injuections [facility] Tubular adenoma of colon (01/28/17) Urinary incontinence 01/24/13 urethral suspension and sling at [facility] (bladder suspension 1991) 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 Bladder repair. Repair bladder injury, simple S/P laparoscopic cholecystectomy (~05/19/22) Family History Mother No problems noted. Father , DROWNED at age 50. No problems noted. Sister Personal history of malignant neoplasm MELANOMA Sister No problems noted. Grandfather Personal history of malignant neoplasm STOMACH Grandfather Personal history of malignant neoplasm PROSTATE Grandmother Heart disease PA Acute ill-defined cerebrovascular disease Grandmother Personal history of malignant neoplasm UTERINE Aunt , PA Heart disease PA Aunt , PA Heart disease Brother No problems noted. Social History Smoking/Tobacco Use Status: Never Smoking risk assessment performed?: Yes Alcohol Intake: current Alcohol Intake frequency: 3 or more drinks per day Alcohol type: hard liquor Drug use: Never Substance use type: does not use Details: Last alcoholic drink Mike zhong, 2 days ago Current gender identity: female Do you feel safe at home: Yes Do you feel safe in your relationship?: No Additional Social history: Has 1 dog, 4 cats. Meds Allergies and Home Medications Allergies Allergy/AdvReac Type Severity Reaction Status Date / Time Penicillins Allergy Mild Rash Verified 02/16/23 08:34 ramipril Allergy Unknown ITCHING Verified 02/16/23 08:34 meperidine [From Demerol] AdvReac Severe Nausea Verified 02/16/23 08:34 bupropion AdvReac Mild GI upset Verified 02/16/23 08:34 AMBER Inhibitors AdvReac Unknown COUGH Verified 02/16/23 08:34 alendronate sodium AdvReac Unknown GI Distress Verified 02/16/23 08:34 clarithromycin AdvReac Unknown intolerant Verified 02/16/23 08:34 paroxetine AdvReac Unknown Diarrhea Verified 02/16/23 08:34 Home Medications Medication Instructions Recorded Confirmed Type carboxymethylcellulose sodium 0.5 1 drp OU Q4H WHILE AWAKE #30 ea 06/20/19 02/16/23 Rx % eye drops in a dropperette (Refresh Plus) lifitegrast 5 % eye drops in a 1 drp ophthalmic (eye) BID 08/05/20 02/16/23 History dropperette (Xiidra) ipratropium 0.5 mg-albuterol 3 mg 3 ml inhalation Q6H PRN 12/25/21 02/16/23 History (2.5 mg base)/3 mL nebulization soln albuterol sulfate 90 mcg/actuation 2 puff inhalation QID PRN 02/08/22 02/16/23 Rx aerosol inhaler (Ventolin HFA) shortness of breath or wheezing #8.5 grams amlodipine 10 mg tablet 10 mg PO DAILY #90 tabs 02/08/22 02/16/23 Rx buspirone 5 mg tablet 5 mg PO BID #60 tabs 02/08/22 02/16/23 Rx folic acid 1 mg tablet 1 mg PO DAILY #90 tabs 02/08/22 02/16/23 Rx melatonin 3 mg capsule 6 mg PO HS #180 caps 02/08/22 02/16/23 Rx metoprolol tartrate 50 mg tablet 50 mg PO DAILY #90 tabs 02/08/22 02/16/23 Rx mirtazapine 7.5 mg tablet 7.5 mg PO QHS #90 tabs 02/08/22 02/16/23 Rx sucralfate 1 gram tablet 1 g PO BID #60 tabs 02/08/22 02/16/23 Rx thiamine HCl (vitamin B1) 100 mg 100 mg PO DAILY #90 tabs 02/08/22 02/16/23 Rx tablet valacyclovir 500 mg tablet 500 mg PO DAILY #90 tabs 02/08/22 02/16/23 Rx (Valtrex) budesonide 0.5 mg/2 mL suspension 0.5 mg (2 mL) inhalation DAILY #60 05/06/22 02/16/23 Rx for nebulization (Pulmicort) mL pantoprazole 40 mg tablet,delayed 40 mg PO BID@0730,1999 #60 tabs 05/21/22 02/16/23 Rx release cyanocobalamin (vitamin B-12) 500 1,000 mcg PO DAILY #180 tabs 07/10/22 02/16/23 Rx mcg tablet (Vitamin B-12) ferrous sulfate 325 mg (65 mg 325 mg PO BID #180 tabs 07/10/22 02/16/23 Rx iron) tablet multivitamin (Multiple Vitamins 1 tab PO DAILY #90 tabs 07/10/22 02/16/23 Rx tablet) quetiapine 25 mg tablet See Rx Instructions PO BID #60 tabs 07/10/22 02/16/23 Rx spironolactone 50 mg tablet 50 mg PO BID #180 tabs 07/10/22 02/16/23 Rx (Aldactone) venlafaxine 75 mg capsule,extended 75 mg PO DAILY #90 caps 07/10/22 02/16/23 Rx release 24 hr mirabegron 50 mg tablet,extended 50 mg PO DAILY #30 tabs 07/20/22 02/16/23 Rx release 24 hr (Myrbetriq) aspirin 81 mg tablet,delayed 81 mg PO DAILY #90 tabs 08/05/22 02/16/23 Rx release furosemide 20 mg tablet See Rx Instructions PO BID #180 08/11/22 02/16/23 Rx tabs lidocaine 5 % topical patch 2 patch topical Q24H #30 ea 01/13/23 02/16/23 Rx loperamide 2 mg capsule 2 mg PO Q4H PRN PRN #12 caps 01/13/23 02/16/23 Rx metronidazole 500 mg tablet 500 mg PO TID #30 tabs 01/13/23 02/16/23 Rx fidaxomicin 200 mg tablet (Dificid) 200 mg PO Q12H #20 tabs 01/15/23 02/16/23 Rx magnesium oxide 400 mg PO BID #30 tabs 01/15/23 02/16/23 Rx lorazepam 0.5 mg tablet 0.5 mg PO QHS PRN anxiety #20 tabs 02/02/23 02/16/23 Rx ondansetron HCl 4 mg tablet 4 mg PO Q6H PRN nausea and 02/02/23 02/16/23 Rx vomiting #20 tabs fluticasone propionate 50 2 spray NS daily prn #16 grams 02/03/23 02/16/23 Rx mcg/actuation nasal spray,suspension Saccharomyces boulardii 250 mg 250 mg PO BID #20 caps 02/10/23 02/16/23 Rx capsule (Florastor) fosfomycin tromethamine 3 gram 3 g PO ONCE #1 ea 02/10/23 02/16/23 Rx oral packet Exam Narrative Exam Narrative: General: Pleasant but demanding pale appearing female who is A&Ox3 (hesitant about the date), laying comfortably flat in bed Neurological: A&ox3, nontremulous, no focal deficits Psychiatric: Appropriate speech pattern/content Skin: Visible skin intact HEENT: Atraumatic, normocephalic, EOMI, dry MM, clear oropharynx, no submandibular or cervical lymphadenopathy, no goiter or JVD Cardiovascular: RRR, no m/r/g, tachycardic Lungs: CTAB Gastrointestinal: soft, exquisitely tender even on minimal palpation, +nontense ascites Genitourinary: deferred Extremities: no edema BLEs, 1+ pedal pulses B Results Imaging Additional studies: CT abdomen/pelvis pending EKG: ST, HR 97, no acute ischemia Labs 02/16/23 11:08 02/16/23 08:55 Labs: Laboratory Results - last 24 hr 02/16/23 02/16/23 02/16/23 08:55 08:55 08:55 WBC 2.93 L RBC 2.18 L Hgb 7.1 L Hct 22.4 L MCV 103 H MCH 32.6 MCHC 31.7 L RDW 19.1 H Plt Count 177 MPV 8.8 Immature Gran % 0.7 Neutrophils % 71.0 Lymphocytes % 16.4 Monocytes % 10.9 Eosinophils % 0.3 Basophils % 0.7 Nucleated RBC % 0.0 Absolute Neutrophils 2.08 Absolute Lymphocytes 0.48 L Absolute Monocytes 0.32 Absolute Eosinophils 0.01 Absolute Basophils 0.02 RBC Morphology See Below Polychromasia Present Hypochromasia 2+ PT INR Sodium 137 Potassium 3.6 Chloride 98 Carbon Dioxide 26.8 Anion Gap 12.2 H BUN 15 Creatinine 0.9 Est GFR (CKD-EPI 2020) 66.26 Glucose 131 H Calcium 8.4 L Magnesium 1.4 L Total Bilirubin 1.7 H AST 40 H ALT 16 Alkaline Phosphatase 184 H Total Protein 5.8 L Albumin 2.9 L Lipase 26 Vitamin B12 Urine Color Urine Clarity Urine pH Ur Specific Paradis Urine Protein Urine Ketones Urine Blood Urine Nitrite Urine Bilirubin Urine Urobilinogen Ur Leukocyte Esterase Urine RBC Urine WBC Ur Epithelial Cells Urine Crystals Urine Bacteria Urine Casts Urine Mucus Ur Culture Indicated? Urine Glucose Ethyl Alcohol 52.7 H Patient ABO/Rh Antibody Screen Crossmatch 02/16/23 02/16/23 02/16/23 08:55 10:30 10:38 WBC RBC Hgb Hct MCV MCH MCHC RDW Plt Count MPV Immature Gran % Neutrophils % Lymphocytes % Monocytes % Eosinophils % Basophils % Nucleated RBC % Absolute Neutrophils Absolute Lymphocytes Absolute Monocytes Absolute Eosinophils Absolute Basophils RBC Morphology Polychromasia Hypochromasia PT 12.2 H INR 1.2 H Sodium Potassium Chloride Carbon Dioxide Anion Gap BUN Creatinine Est GFR (CKD-EPI 2020) Glucose Calcium Magnesium Total Bilirubin AST ALT Alkaline Phosphatase Total Protein Albumin Lipase Vitamin B12 437 Urine Color Yellow Urine Clarity Cloudy Urine pH 7.0 Ur Specific Paradis 1.015 Urine Protein 100 H Urine Ketones 40 H Urine Blood Negative Urine Nitrite Negative Urine Bilirubin Moderate H Urine Urobilinogen 2.0 H Ur Leukocyte Esterase Trace H Urine RBC 0-2 Urine WBC 3-5 Ur Epithelial Cells Rare Urine Crystals Negative Urine Bacteria Many Urine Casts Negative Urine Mucus Trace Ur Culture Indicated? Yes Urine Glucose Negative Ethyl Alcohol Patient ABO/Rh Antibody Screen Crossmatch 02/16/23 02/16/23 10:38 11:08 WBC 2.19 L RBC 1.87 L Hgb 6.1 L* Hct 19.4 L* MCV 104 H MCH 32.6 MCHC 31.4 L RDW 19.2 H Plt Count 131 MPV 8.7 Immature Gran % 0.9 Neutrophils % 66.2 Lymphocytes % 20.5 Monocytes % 11.4 Eosinophils % 0.5 Basophils % 0.5 Nucleated RBC % 0.0 Absolute Neutrophils 1.45 Absolute Lymphocytes 0.45 L Absolute Monocytes 0.25 Absolute Eosinophils 0.01 Absolute Basophils 0.01 RBC Morphology See Below Polychromasia Hypochromasia 3+ PT INR Sodium Potassium Chloride Carbon Dioxide Anion Gap BUN Creatinine Est GFR (CKD-EPI 2020) Glucose Calcium Magnesium Total Bilirubin AST ALT Alkaline Phosphatase Total Protein Albumin Lipase Vitamin B12 Urine Color Urine Clarity Urine pH Ur Specific Paradis Urine Protein Urine Ketones Urine Blood Urine Nitrite Urine Bilirubin Urine Urobilinogen Ur Leukocyte Esterase Urine RBC Urine WBC Ur Epithelial Cells Urine Crystals Urine Bacteria Urine Casts Urine Mucus Ur Culture Indicated? Urine Glucose Ethyl Alcohol Patient ABO/Rh A Negative Antibody Screen NEGATIVE Crossmatch See Detail Last Vital Signs Temp 36.7 C 02/16/23 15:00 Pulse 104 H 02/16/23 15:00 Resp 24 02/16/23 15:00 BP 150/67 H 02/16/23 15:00 Pulse Ox 92 02/16/23 15:00 PAWSS Have you Been Recently Intoxicated or Drunk Within the Last 30 days?: Yes Have you Ever Experienced Previous Episodes of Alcohol Withdrawal?: Yes Have you ever Experienced Withdrawal Seizures?: No Have you ever Experienced Delirium Tremens(DT)s?: No Have you ever undergone Alcohol Rehabilitation Treatment (i.e, inpt ot outpatient treatment programs)?: Yes Have you ever Experienced Blackouts?: No Have you ever Combined Alcohol with other Downers within the last 90 days?: No Have you ever Combined Alcohol with any other Substance of Abuse during the last 90 days?: No Evidence of Increased Autonomic Activity (i.e. HR>120, tremor, sweating, agitation, nausea)?: No Result: 3 Time Spent Time spent with Patient: 55-74 minutes Time was spent: preparing to see the patient(eg.review tests), obtaining and[facility]or [facility], ordering medications,tests, procedures, referring, communicating with other health customer care associate, indepentently interpreting results, counseling the patient and care coordination
--- NOTE | 2023-02-16 16:41 | CHAPLAIN ---
Leticia and I know each other from previous admissions. She was in bed when I visited. She told me she was going for a scan, but really wanted something to drink. It turned out she had a small cup of water and a sponge, but didn't see it, so she was happy with that. Leticia told me she got a unit of blood. I left when her nurses arrived to clean her up to go for the scan. I'll continue to visit.
--- NOTE | 2023-02-16 17:28 | DI.VRAD_ITS ---
PROCEDURE INFORMATION: Exam: CT Abdomen And Pelvis Without Contrast Exam date and time: 02/16/2023 4:42 PM Age: 77 years old Clinical indication: Other: Abdominal pain and distention, anemia, c. Diff TECHNIQUE: Imaging protocol: Computed tomography of the abdomen and pelvis without contrast. Radiation optimization: All CT scans at this facility use at least one of these dose optimization techniques: automated exposure control; mA and/or kV adjustment per patient size (includes targeted exams where dose is matched to clinical indication); or iterative reconstruction. COMPARISON: CT ABDOMEN PELVIS W 02/05/2023 4:44 PM FINDINGS: Minimal pleural fluid and subsegmental atelectasis Liver: Nodular contour in keeping with cirrhosis. Hypodensity posteriorly presumably representing a simple cyst. Gallbladder and bile ducts: Prior cholecystectomy. No ductal dilation. Pancreas: No ductal dilation. Spleen: No splenomegaly. Adrenal glands: No mass. Kidneys and ureters: Bilateral simple and hyperdense renal cysts No hydronephrosis. Stomach and bowel: No obstruction. Decompressed colon limiting evaluation for mucosal thickening. Decompressed stomach and small bowel loops Appendix: No evidence of appendicitis. Intraperitoneal space: Moderate to large ascites. Question mild omental infiltration No free air. No significant fluid collection. Vasculature: No abdominal aortic aneurysm. Lymph nodes: Adenopathy versus metastatic implants superior to the rectosigmoid junction No enlarged lymph nodes. Urinary bladder: Unremarkable as visualized. Reproductive: Unremarkable as visualized. Bones/joints: Levoscoliosis of the lower lumbar spine and degenerative changes noted No acute fracture. Soft tissues: Unremarkable. IMPRESSION: Decompressed colon and bowel limiting evaluation for mucosal thickening. Colitis can not be completely excluded Moderate to large ascites in this patient with cirrhosis. Question adenopathy versus metastatic implants in the upper posterior pelvis measuring up to 4 cm Dictated and Authenticated by: Dylon Carter MD. Ordering:JENNIE Rufifn MD
[2023-02-16 17:59] LABS: C Diff PCR Positive (Negative)
[2023-02-16 18:28] LABS: Lactate 1.3 mmol/L (0.6-1.4)
[2023-02-16 18:32] LABS: HGB 9.7 g/dL (11.2-15.7)
[2023-02-16 18:34] LABS: Reticulocyte 3.2 % (0.5-2.4)
[2023-02-16 18:45] LABS: Iron 162 ug/dL (50-170); Total Iron Binding Capacity 224 ug/dL (250-450); Transferrin Sat 72 % (15-50)
[2023-02-16] MEDS: Normal Saline 1,000 ML 100 ML IV (18:56)
[2023-02-16 19:08] LABS: Ferritin 426 ng/mL (8-252)
[2023-02-16] MEDS: QUEtiapine 25 MG TAB 12.5 MG PO (19:53)
[2023-02-16] MEDS: Refresh PLUS Eye Drops 0.4ml 1 EACH OU (19:53)
[2023-02-16] MEDS: Ferrous Sulfate 325 MG TAB PO (19:54)
[2023-02-16] MEDS: busPIRone 5 MG TAB PO (19:55)
[2023-02-16] MEDS: metroNIDAZOLE 500 MG/100 ML BAG 100 MG IVPB (19:56)
[2023-02-16] MEDS: Lidocaine 5% Patch 2 PATCH TP (19:56)
[2023-02-16] MEDS: LORazepam 0.5 MG TAB PO (21:37)
[2023-02-16] MEDS: Mirtazapine 15 MG TAB 7.5 MG PO (21:37)
[2023-02-16 21:40] LABS: Lab Add On Test DONE
[2023-02-16] MEDS: Pantoprazole 40 MG VIAL 80 MG IVP (22:40)
[2023-02-17] VITALS (35 sets, daily range): BP systolic 101–167; BP diastolic 51–96; PULSE 79–114; RESP 22–32; TEMP 36.2–36.8; O2SAT 84–98
[2023-02-17] MEDS: metroNIDAZOLE 500 MG/100 ML BAG 100 MG IVPB ×4 (01:52→20:39)
[2023-02-17] MEDS: Sucralfate 1 GM TAB PO ×4 (01:53→20:35)
[2023-02-17 06:10] LABS: Abs Immature Grans 0.01 10^3/uL (0.0-0.06); Absolute Basophil Count 0.01 10^3/uL (0.0-0.2); Absolute Eosinophil Count 0.01 10^3/uL (0.0-0.7); Absolute Lymphocyte Count 0.54 10^3/uL (1.2-3.4); Absolute Monocyte Count 0.29 10^3/uL (0.1-0.8); Absolute Neutrophil Count 1.28 10^3/uL (1.2-6.7); Basophils % 0.5; Eosinophils % 0.5; HGB 8.8 g/dL (11.2-15.7); Immature Grans % 0.5; Lymphocytes % 25.2; MCH 32.8 pg (27.0-33.0); MCHC 32.6 % (32.0-36.0); MCV 101 fL (80-95); Monocytes % 13.6; Neutrophils % 59.7; Platelet Count 117 10^3/uL (130-400); RBC 2.68 10^6/uL (3.93-5.22); RDW 19.8 % (11.7-14.6); RDW-SD 72.2 fL; WBC 2.14 10^3/uL (4.4-10.8)
[2023-02-17 07:53] LABS: Anion Gap 8.2 mmol/L (3-11); BUN 14 mg/dL (7-18); CO2 25.8 mmol/L (21.0-32.0); CREATININE 0.8 mg/dL (0.55-1.02); Calcium 8.1 mg/dL (8.5-10.1); Chloride 106 mmol/L (98-107); Estimated GFR 76.31 (mL/min/1.73m2); Glucose 119 mg/dL (74-106); Magnesium 1.8 mg/dL (1.8-2.4); Potassium 3.4 mmol/L (3.5-5.1); Sodium 140 mmol/L (136-145)
[2023-02-17] MEDS: Budesonide 0.5 MG/2 ML UPD VIAL IH (07:59)
--- NOTE | 2023-02-17 08:35 | PDOC.CMIN ---
Date of service: 02/17/23 Time of Service: 08:35 Care Management Initial Assmt Initial Assessment REASON FOR HOSPITALIZATION:: anemia and GI bleed PREVIOUS FUNCTIONAL STATUS/SOCIAL/FAMILY SUPPORTS:: Leticia lives alone in her home in [place] with her dog and cats. She has a sister who takes care of her animals when she is hospitalized, and a homemaker, Marry, who visits her 3x/week for 2 hrs at a time. Her son Seth is her DPOA, although he lives in [place]. ADVANCE DIRECTIVES:: COLST on file. Son Seth HCA Has patient been provided with info about the portal/API?: Yes Did the patient sign up for the portal?: Yes CODE STATUS:: DNR/DNI INSURANCE COVERAGE / FINANCIAL ISSUES:: [employer] Medicare replacement Plan CURRENT HOME/COMMUNITY SERVICES/EQUIPMENT:: Leticia receives home health services through [facility] for SN, PT, OT PRIMARY CARE PHYSICIAN:: Lavelle Galindo POTENTIAL DISCHARGE NEEDS:: Evaluations for further needs, follow up appointments. PATIENT/FAMILY EDUCATION NEEDS:: Review of discharge instructions regarding medications, limitations, activity level, and follow up plan of care, and discussion of Ask Me Three. TRANSPORTATION:: Via [facility] private vehicle PLAN:: Leticia will be discharged home when medically cleared by provider. She will follow up with her community providers and plan of care as directed. Leticia will transport home via [facility] private vehicle coordinated by CM. CM will continue to support Leticia and any discharge planning needs. [facility] All Active Problems (Updated 02/16/23 @ 16:51 by Laly Dumnot MD) Acute on chronic anemia (Acute) Anemia (Chronic) Portal hypertension (Chronic) Leukopenia (Acute) Macrocytic anemia (Acute) Hypokalemia (Acute) Hypomagnesemia (Acute) Shortness of breath (Acute) Lung cancer (Chronic) RUL Abdominal pain (Acute) Leukopenia (Acute) Thrombocytopenia (Chronic) Hypomagnesemia (Acute) Elevated LFTs (Acute) Macrocytic anemia (Acute) Pelvic mass (Acute) Pneumothorax after biopsy (Acute) 01/19/23 Per [facility] CXR. -hb Soft tissue mass (Acute) 12/29/22 PET at [facility] Avid lobulated pre-sacral. -hb Hypokalemia (Acute) Alcohol abuse (Chronic) DVT prophylaxis (Acute) Multiple rib fractures (Chronic) 03/11/19 [facility] Alcohol withdrawal (Acute) Hypomagnesemia (Acute) Breast nodule (Acute) Sleep disturbance (Acute) Sinus tachycardia (Acute) High anion gap metabolic acidosis (Acute) Elevated blood pressure reading with diagnosis of hypertension (Acute) Pincer nail deformity (Acute) Insomnia (Acute) Thrombocytopenia (Chronic) Elevated bilirubin (Acute) Mixed stress and urge urinary incontinence (Acute) Thyroid nodule (Acute) Anxiety (Chronic) Adverse effect of metronidazole (Acute) Medication monitoring encounter (Acute) Advance care planning (Acute) Cirrhosis of liver with ascites (Acute) Animal bite of right hand with infection (Acute) Umbilical hernia (Acute) Hyperbilirubinemia (Acute) Shortness of breath (Acute) Elevated blood pressure reading without diagnosis of hypertension (Acute) Left arm pain (Acute) Ambulatory dysfunction (Acute) Incontinence (Acute) Anorexia (Acute) Headache (Acute) Depression (Chronic) Chest pain (Acute) Foot pain, right (Acute) Tendinitis of left rotator cuff (Acute) Macrocytosis (Acute 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 Leukopenia (Acute) Headache (Acute) Epigastric abdominal pain (Acute) Calcific tendinitis of left shoulder (Acute) Pulmonary mass (Acute) spiculated mass Pneumonia (Acute) Depression with suicidal ideation (Acute) Alcohol abuse (Chronic) Diarrhea (Acute) Epigastric pain (Acute) Dehydration (Acute) Discharge planning issues (Acute) Difficult intravenous access (Acute) Multiple IV attempts, usually requires ultrasound placement. PTSD (post-traumatic stress disorder) (Acute) Anemia (Chronic) Depression (Chronic) Foot pain, right (Acute) T12 compression fracture (Acute) Presacral mass (Chronic) Deviated nasal septum (Acute) Frequent falls (Chronic) Head injury (Acute) Ambulatory dysfunction (Chronic) Shoulder pain, right (Chronic) Suicidal ideation (Acute) Dry eye (Acute) Pruritus (Acute) Dystrophic nail (Acute) AMBER (acute kidney injury) (Acute) Iron deficiency anemia (Chronic) Fall (Acute) Atelectasis of left lung (Chronic) Advance directive on file (Acute) Nodule of upper lobe of right lung (Acute ~09/13/18) 01/19/23 Increased in size per [facility]. -hb 09/13/18 [facility]; 12mm SPICULATED -kb Cataract (Chronic 11/07/15) Hypertension (Chronic) high today; she will check readings at home Hyperlipidemia (Chronic) Back pain, chronic (Chronic) Depression (Chronic) Osteopenia (Chronic) Medical History Adjustment disorder with depressed mood Alcoholic ketosis Anemia Cervical radicular pain neck pain and DJD [facility] 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) pls refrain from alcohol Chronic alcoholism she will not stop drinking unless she checks with me, so that we can help her avert withdrawal I do not think she is capable on her own--she would need placement to achieve required goal of 3 months of sobriety Chronic diarrhea Closed right humeral fracture Corneal ulcer, right (~08/23/18) 08/23/18; UV-kb Fracture of humerus, left, closed Genital herpes simplex recurrent gential; suppressive Valtrex GERD (gastroesophageal reflux disease) GI bleed (12/20/16) Hypertension Hypokalemia Hypomagnesemia Incidental lung nodule, greater than or equal to 8mm 1cm, spiculated, stable for many years, recommend f/u in 6 mo Non-cardiac chest pain (09/21/16) [facility] 09/21/16 NEGATIVE MP Osteoarthritis Palliative care patient (03/21/17) Pancreatitis, alcoholic, acute Peripheral edema Photophobia of right eye Pleural effusion on left 03/11/19 [facility] Presacral mass (~09/15/18) 09/15/[address] [facility] Sciatica right, epidural injuections [facility] Tubular adenoma of colon (01/28/17) Urinary incontinence 01/24/13 urethral suspension and sling at [facility] (bladder suspension 1991) 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 Bladder repair. Repair bladder injury, simple S/P laparoscopic cholecystectomy (~05/19/22) Family History Mother No problems noted. Father , DROWNED at age 50. No problems noted. Sister Personal history of malignant neoplasm MELANOMA Sister No problems noted. Grandfather Personal history of malignant neoplasm STOMACH Grandfather Personal history of malignant neoplasm PROSTATE Grandmother Heart disease MA Acute ill-defined cerebrovascular disease Grandmother Personal history of malignant neoplasm UTERINE Aunt , MA Heart disease MA Aunt , MA Heart disease Brother No problems noted. Social History Smoking/Tobacco Use Status: Never Smoking risk assessment performed?: Yes Alcohol Intake: current Alcohol Intake frequency: 3 or more drinks per day Alcohol type: hard liquor Drug use: Never Substance use type: does not use Details: Last alcoholic drink Mike zhong, 2 days ago Current gender identity: female Do you feel safe at home: Yes Do you feel safe in your relationship?: No Additional Social history: Has 1 dog, 4 cats.
[2023-02-17] MEDS: Fluticasone NASAL SPRAY 16 GM BTL NS (10:21)
[2023-02-17] MEDS: Normal Saline Flush 10 ML SYR IVP ×2 (10:21→20:48)
[2023-02-17] MEDS: Refresh PLUS Eye Drops 0.4ml 1 EACH OU ×4 (10:25→20:34)
[2023-02-17] MEDS: Cyanocobalamin 500 MCG TAB 1000 MCG PO (10:26)
[2023-02-17] MEDS: Ferrous Sulfate 325 MG TAB PO ×2 (10:26→20:35)
[2023-02-17] MEDS: Metoprolol 50 MG TAB PO (10:26)
[2023-02-17] MEDS: QUEtiapine 25 MG TAB 12.5 MG PO ×2 (10:26→20:36)
[2023-02-17] MEDS: Venlafaxine 75 MG CAPCR PO (10:26)
[2023-02-17] MEDS: valACYclovir 500 MG TAB PO (10:26)
[2023-02-17] MEDS: Mirabegron 50 MG TABCR PO (10:26)
[2023-02-17] MEDS: amLODIPine 10 MG TAB PO (10:27)
[2023-02-17] MEDS: Aspirin E.C. 81 MG TABEC PO (10:27)
[2023-02-17] MEDS: Multivitamin TAB 1 TAB PO (10:27)
[2023-02-17] MEDS: busPIRone 5 MG TAB PO ×2 (10:27→20:36)
[2023-02-17] MEDS: Thiamine 100 MG TAB PO (10:28)
[2023-02-17] MEDS: Pantoprazole 40 MG VIAL 80 MG IVP ×2 (10:29→21:32)
[2023-02-17] MEDS: Patch Removal 2 EACH TP (11:47)
[2023-02-17] MEDS: Folic Acid 1 MG TAB PO (12:16)
--- NOTE | 2023-02-17 12:43 | PGE_ITS ---
Date of Service Date of service: 02/17/23 Time of Service: 12:30 Assessment and Plan Assessment and plan (1) Acute on chronic anemia: Status: Acute (2) Portal hypertension: Status: Chronic (3) Lung cancer: Status: Chronic Assessment and plan: Stage I NSCLC. Oncology feels that this is a slow-growing and will not likely to be her demise. She is not a candidate for surgery. supposes to be starting STBRT this week (4) Pelvic mass: Status: Acute Assessment and plan: Oncology feels that this is a secondary primary. CT shows omental caking consistent w/ abdominal metastatic Dx pt is suppose to be having MRI Preop Ativan ordered (5) Cirrhosis of liver with ascites: Status: Acute Assessment and plan: Stable (6) Anemia: Status: Chronic Assessment and plan: Stable (7) GERD (gastroesophageal reflux disease): Qualifiers: Esophagitis presence: with esophagitis Qualified Code(s): K21.0 - Gastro-esophageal reflux disease with esophagitis (8) Colitis due to Clostridium difficile: Status: Acute Assessment and plan: Vancomycin and Flagyl Subjective Subjective Interval history since last seen: Pt states she been vomting an dc/o severe abdominal pain. RN states she is not. Per RN; She is currently tolerating clears. She has had to smears of stools w/ no blood. pt c/o pain under ribs. Objective Last Vital Signs Temp 36.5 C 02/17/23 07:42 Pulse 79 02/17/23 12:00 Resp 23 02/17/23 12:00 BP 114/60 02/17/23 12:00 Pulse Ox 94 02/17/23 12:00 Laboratory Results - last 24 hr 02/16/23 02/16/23 02/16/23 16:25 18:10 18:10 WBC RBC Hgb 9.7 L D Hct 30.0 L MCV MCH MCHC RDW Plt Count MPV Reticulocyte % (Auto) Immature Gran % Neutrophils % Lymphocytes % Monocytes % Eosinophils % Basophils % Nucleated RBC % Absolute Neutrophils Absolute Lymphocytes Absolute Monocytes Absolute Eosinophils Absolute Basophils VBG Lactate 1.3 Sodium Potassium Chloride Carbon Dioxide Anion Gap BUN Creatinine Est GFR (CKD-EPI 2020) Glucose Calcium Magnesium Iron TIBC Transferrin % Sat Ferritin Stl C.difficile Tox PCR Positive A Add-On Test Request 02/16/23 02/16/23 02/16/23 18:10 18:10 18:10 WBC RBC Hgb Hct MCV MCH MCHC RDW Plt Count MPV Reticulocyte % (Auto) 3.2 H Immature Gran % Neutrophils % Lymphocytes % Monocytes % Eosinophils % Basophils % Nucleated RBC % Absolute Neutrophils Absolute Lymphocytes Absolute Monocytes Absolute Eosinophils Absolute Basophils VBG Lactate Sodium Potassium Chloride Carbon Dioxide Anion Gap BUN Creatinine Est GFR (CKD-EPI 2020) Glucose Calcium Magnesium Iron 162 TIBC 224 L Transferrin % Sat 72 H Ferritin 426 H Stl C.difficile Tox PCR Add-On Test Request 02/16/23 02/17/23 02/17/23 Unknown 05:40 05:40 WBC 2.14 L RBC 2.68 L Hgb 8.8 L Hct 27.0 L MCV 101 H MCH 32.8 MCHC 32.6 RDW 19.8 H Plt Count 117 L MPV 9.0 Reticulocyte % (Auto) Immature Gran % 0.5 Neutrophils % 59.7 Lymphocytes % 25.2 Monocytes % 13.6 Eosinophils % 0.5 Basophils % 0.5 Nucleated RBC % 0.0 Absolute Neutrophils 1.28 Absolute Lymphocytes 0.54 L Absolute Monocytes 0.29 Absolute Eosinophils 0.01 Absolute Basophils 0.01 VBG Lactate Sodium 140 Potassium 3.4 L Chloride 106 Carbon Dioxide 25.8 Anion Gap 8.2 BUN 14 Creatinine 0.8 Est GFR (CKD-EPI 2020) 76.31 Glucose 119 H Calcium 8.1 L Magnesium 1.8 Iron TIBC Transferrin % Sat Ferritin Stl C.difficile Tox PCR Add-On Test Request DONE PAWSS Have you Been Recently Intoxicated or Drunk Within the Last 30 days?: Yes Have you Ever Experienced Previous Episodes of Alcohol Withdrawal?: Yes Have you ever Experienced Withdrawal Seizures?: No Have you ever Experienced Delirium Tremens(DT)s?: No Have you ever undergone Alcohol Rehabilitation Treatment (i.e, inpt ot outpatient treatment programs)?: Yes Have you ever Experienced Blackouts?: No Have you ever Combined Alcohol with other Downers within the last 90 days?: No Have you ever Combined Alcohol with any other Substance of Abuse during the last 90 days?: No Evidence of Increased Autonomic Activity (i.e. HR>120, tremor, sweating, agitation, nausea)?: No Result: 3 Time Spent with Patient Time Spent with Patient: 25-34 minutes Time was spent: preparing to see the patient(eg.review tests), obtaining and/or reviewing separately otained hiistory, ordering medications,tests, procedures, referring, communicating with other health direct care counselor, indepentently interpreting results, counseling the patient and care coordination
--- NOTE | 2023-02-17 13:00 | W.PALLCONSUL ---
Date of service: 02/17/23 Time of Service: 15:00 History of Present Illness History of Present Illness Chief Complaint: Abdominal pain Narrative: From H and P History of Present Illness History of Present Illness?Chief Complaint: Abdominal pain, nausea, diarrhea, thirst?Narrative: Ms Ingram is a 77 year old female with PMHx of EtOH abuse, portal hypertension, recent admission for C.Diff colitis, chronic anemia, who presented to [facility] ED today c/o diffuse abdominal pain since last night as well as nausea. The patient states she vomited once last night. She cannot tell me about the color of her diarrhea. She is not sure what C. DIff is or if she finished her antibiotics for it. She had 3 bouts of diarrhea last night, she states, and she also had diarrhea this am. The patient states her Upper front teeth are painful and that she went to the dentist sometime last week and was told she had a dental infection but had not yet had a chance to take antibiotics for that. In the ED, she was found to be hemoccult negative but her hemoglobin went from 9.3 on 02/05 to 8.0 on 02/13 to 7.1 this morning at 08:55 in the ER to 6.1 at 11:08.? She also reportedly had a nontender abdomen in the ER. The patient was written for a unit of pRBCs, general surgery was consulted with no immediate plans for endoscopy, and a hospitalist admission to the ICU was requested. Leticia continues to have nausea. She states that she vomited today when discussing this with surgery, but when she talked to me she said she did not. She had 3 loose stools this afternoon none of which was she able to make it to the toilet. She continues to have the abdominal pain. She feels like she did in the past when she needed a paracentesis. She is very very concerned about transportation for her cancer treatment. She was recently found to have lung cancer with treatment aimed towards curative.? Assessment and Plan Assessment and plan (1) Colitis due to Clostridium difficile: Status: Acute (2) Acute on chronic anemia: Status: Acute (3) Portal hypertension: Status: Chronic (4) Leukopenia: Status: Acute (5) Lung cancer: Status: Chronic (6) Thrombocytopenia: Status: Chronic (7) Alcohol abuse: Status: Chronic Assessment and plan: C. difficile will?continue on antibiotics daily Pancytopenia?slowly coming back up. Does not presently require transfusion Lung cancer?will speak with Vesna Hawkins our chronic patient care provider at [facility] about helping her with transportation. I am really not certain that treatment for her lung cancer given her extreme debilitated state is in her best interest but she wants to pursue it Alcoholism continues to drink has no intention of stopping I again talked to her about considering more comfort type measures rather than aggressive lung cancer treatment and continual return to ER and hospitalizations at [facility]. She again stated that she wanted to live and has no intention of going on hospice at this time. She continues with unrealistic expectations about her future I have spent more than 50% of time in counseling with this patient. Review of Systems Narrative: Continues to have nausea intermittent vomiting, diarrhea, abdominal pain, fatigue, shortness of breath PFSH All Active Problems (Updated 02/17/23 @ 18:20 by Margaret Boss, ) Colitis due to Clostridium difficile (Acute) Acute on chronic anemia (Acute) Anemia (Chronic) Portal hypertension (Chronic) Leukopenia (Acute) Macrocytic anemia (Acute) Hypokalemia (Acute) Hypomagnesemia (Acute) Shortness of breath (Acute) Lung cancer (Chronic) RUL Abdominal pain (Acute) Leukopenia (Acute) Thrombocytopenia (Chronic) Hypomagnesemia (Acute) Elevated LFTs (Acute) Macrocytic anemia (Acute) Pelvic mass (Acute) Pneumothorax after biopsy (Acute) 01/19/23 Per [facility] CXR. -hb Soft tissue mass (Acute) 12/29/22 PET at [facility] Avid lobulated pre-sacral. -hb Hypokalemia (Acute) Alcohol abuse (Chronic) DVT prophylaxis (Acute) Multiple rib fractures (Chronic) 03/11/19 [facility] Alcohol withdrawal (Acute) Hypomagnesemia (Acute) Breast nodule (Acute) Sleep disturbance (Acute) Sinus tachycardia (Acute) High anion gap metabolic acidosis (Acute) Elevated blood pressure reading with diagnosis of hypertension (Acute) Pincer nail deformity (Acute) Insomnia (Acute) Thrombocytopenia (Chronic) Elevated bilirubin (Acute) Mixed stress and urge urinary incontinence (Acute) Thyroid nodule (Acute) Anxiety (Chronic) Adverse effect of metronidazole (Acute) Medication monitoring encounter (Acute) Advance care planning (Acute) Cirrhosis of liver with ascites (Acute) Animal bite of right hand with infection (Acute) Umbilical hernia (Acute) Hyperbilirubinemia (Acute) Shortness of breath (Acute) Elevated blood pressure reading without diagnosis of hypertension (Acute) Left arm pain (Acute) Ambulatory dysfunction (Acute) Incontinence (Acute) Anorexia (Acute) Headache (Acute) Depression (Chronic) Chest pain (Acute) Foot pain, right (Acute) Tendinitis of left rotator cuff (Acute) Macrocytosis (Acute 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 Leukopenia (Acute) Headache (Acute) Epigastric abdominal pain (Acute) Calcific tendinitis of left shoulder (Acute) Pulmonary mass (Acute) spiculated mass Pneumonia (Acute) Depression with suicidal ideation (Acute) Alcohol abuse (Chronic) Diarrhea (Acute) Epigastric pain (Acute) Dehydration (Acute) Discharge planning issues (Acute) Difficult intravenous access (Acute) Multiple IV attempts, usually requires ultrasound placement. PTSD (post-traumatic stress disorder) (Acute) Anemia (Chronic) Depression (Chronic) Foot pain, right (Acute) T12 compression fracture (Acute) Presacral mass (Chronic) Deviated nasal septum (Acute) Frequent falls (Chronic) Head injury (Acute) Ambulatory dysfunction (Chronic) Shoulder pain, right (Chronic) Suicidal ideation (Acute) Dry eye (Acute) Pruritus (Acute) Dystrophic nail (Acute) AMBER (acute kidney injury) (Acute) Iron deficiency anemia (Chronic) Fall (Acute) Atelectasis of left lung (Chronic) Advance directive on file (Acute) Nodule of upper lobe of right lung (Acute ~09/13/18) 01/19/23 Increased in size per [facility]. 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) pls refrain from alcohol Chronic alcoholism she will not stop drinking unless she checks with me, so that we can help her avert withdrawal I do not think she is capable on her own--she would need placement to achieve required goal of 3 months of sobriety Chronic diarrhea Closed right humeral fracture Corneal ulcer, right (~08/23/18) 08/23/18; [facility] Fracture of humerus, left, closed Genital herpes simplex recurrent gential; suppressive Valtrex GERD (gastroesophageal reflux disease) GI bleed (12/20/16) Hypertension Hypokalemia Hypomagnesemia Incidental lung nodule, greater than or equal to 8mm 1cm, spiculated, stable for many years, recommend f/u in 6 mo Non-cardiac chest pain (09/21/16) [facility] 09/21/16 NEGATIVE MP Osteoarthritis Palliative care patient (03/21/17) Pancreatitis, alcoholic, acute Peripheral edema Photophobia of right eye Pleural effusion on left 03/11/19 [facility] Presacral mass (~09/15/18) 09/15/18 [facility] Sciatica right, epidural injuections [facility] Tubular adenoma of colon (01/28/17) Urinary incontinence 01/24/13 urethral suspension and sling at [facility] (bladder suspension 1991) 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 Bladder repair. Repair bladder injury, simple S/P laparoscopic cholecystectomy (~05/19/22) Family History Mother No problems noted. Father , DROWNED at age 50. No problems noted. Sister Personal history of malignant neoplasm MELANOMA Sister No problems noted. Grandfather Personal history of malignant neoplasm STOMACH Grandfather Personal history of malignant neoplasm PROSTATE Grandmother Heart disease AR Acute ill-defined cerebrovascular disease Grandmother Personal history of malignant neoplasm UTERINE Aunt , AR Heart disease AR Aunt , AR Heart disease Brother No problems noted. Social History Smoking/Tobacco Use Status: Never Smoking risk assessment performed?: Yes Alcohol Intake: current Alcohol Intake frequency: 3 or more drinks per day Alcohol type: hard liquor Drug use: Never Substance use type: does not use Details: Last alcoholic drink Mike zhong, 2 days ago Current gender identity: female Do you feel safe at home: Yes Do you feel safe in your relationship?: No Additional Social history: Has 1 dog, 4 cats. Exam Narrative Exam Narrative: Leticia is lying in the ICU bed. She was watching TV when I came in the room. She was able to answer all of my questions. She perseverated over transportation to her cancer treatment. Her heart was regular. Lungs not a lot of air movement and some rales on the right. Please note she was lying on her right side. Bowel sounds present abdominal tenderness throughout but mostly epigastric and right lower quadrant. Mood depressed Results Last Vital Signs Temp 97.7 F 02/17/23 07:42 Pulse 79 02/17/23 12:00 Resp 23 02/17/23 12:00 BP 114/60 02/17/23 12:00 Pulse Ox 94 02/17/23 12:00 Laboratory Tests 02/16/23 02/17/23 11:08 05:40 Hgb 6.1 L* 8.[address] SCAN FINDINGS: Lung Bases: Tiny bilateral pleural effusions.? Mild dependent atelectasis. Liver: Cirrhotic appearance.? Stable low-density lesion posterior liver . Gallbladder and biliary tract: Status post cholecystectomy.? No radiodense calculus or biliary ductal dilation. Pancreas: Normal density, no abnormal calcifications or inflammatory process. Spleen: Normal. Kidneys: Normal size, contour and axis.No radiodense stones or obstructive uropathy. No masses seen. ? Stable cysts.? No further follow-up recommended. Adrenal glands: No mass is seen. Lymph nodes: Within normal limits.? Abdominal Aorta: Abdominal portion non-dilated. Bladder:Symmetric distention, no gross wall thickening. Bowel: Limited evaluation without IV or oral contrast.? Colon decompressed.? No obstruction or bowel wall thickening. No evidence of appendicitis. Peritoneal cavity: Moderate to large quantity of ascites, roughly stable.? ? Stable large masses in the posterior presacral fat.? Omental caking again visible. Reproductive organs: Within normal limits. Bones: Old bilateral rib fractures.? Degenerative changes in the spine. Soft Tissues: Within normal limits. IMPRESSION: Bowel not well evaluated do like of IV an oral contrast.? Colon is decompressed. Stable appearance of ascites and omental caking. Stable appearance of masses in the presacral fat. Labs 02/18/23 05:40 02/18/23 05:40 Labs: Laboratory Results - last 24 hr 02/16/23 02/16/23 02/16/23 16:25 18:10 18:10 WBC RBC Hgb 9.7 L D Hct 30.0 L MCV MCH MCHC RDW Plt Count MPV Reticulocyte % (Auto) Immature Gran % Neutrophils % Lymphocytes % Monocytes % Eosinophils % Basophils % Nucleated RBC % Absolute Neutrophils Absolute Lymphocytes Absolute Monocytes Absolute Eosinophils Absolute Basophils VBG Lactate 1.3 Sodium Potassium Chloride Carbon Dioxide Anion Gap BUN Creatinine Est GFR (CKD-EPI 2020) Glucose Calcium Magnesium Iron TIBC Transferrin % Sat Ferritin Stl C.difficile Tox PCR Positive A Add-On Test Request 02/16/23 02/16/23 02/16/23 18:10 18:10 18:10 WBC RBC Hgb Hct MCV MCH MCHC RDW Plt Count MPV Reticulocyte % (Auto) 3.2 H Immature Gran % Neutrophils % Lymphocytes % Monocytes % Eosinophils % Basophils % Nucleated RBC % Absolute Neutrophils Absolute Lymphocytes Absolute Monocytes Absolute Eosinophils Absolute Basophils VBG Lactate Sodium Potassium Chloride Carbon Dioxide Anion Gap BUN Creatinine Est GFR (CKD-EPI 2020) Glucose Calcium Magnesium Iron 162 TIBC 224 L Transferrin % Sat 72 H Ferritin 426 H Stl C.difficile Tox PCR Add-On Test Request 02/16/23 02/17/23 02/17/23 Unknown 05:40 05:40 WBC 2.14 L RBC 2.68 L Hgb 8.8 L Hct 27.0 L MCV 101 H MCH 32.8 MCHC 32.6 RDW 19.8 H Plt Count 117 L MPV 9.0 Reticulocyte % (Auto) Immature Gran % 0.5 Neutrophils % 59.7 Lymphocytes % 25.2 Monocytes % 13.6 Eosinophils % 0.5 Basophils % 0.5 Nucleated RBC % 0.0 Absolute Neutrophils 1.28 Absolute Lymphocytes 0.54 L Absolute Monocytes 0.29 Absolute Eosinophils 0.01 Absolute Basophils 0.01 VBG Lactate Sodium 140 Potassium 3.4 L Chloride 106 Carbon Dioxide 25.8 Anion Gap 8.2 BUN 14 Creatinine 0.8 Est GFR (CKD-EPI 2020) 76.31 Glucose 119 H Calcium 8.1 L Magnesium 1.8 Iron TIBC Transferrin % Sat Ferritin Stl C.difficile Tox PCR Add-On Test Request DONE Alcohol?elevated
--- NOTE | 2023-02-17 16:43 | W.PM.PROGNOT ---
Date of Service Date of service: 02/17/23 Time of Service: 08:40 Assessment and Plan Assessment and plan (1) Acute on chronic anemia: Status: Acute Assessment and plan: She was reportedly hematest negative in the ED. S/p 1 unit pRBCS. Hgb:7.1 > 6.1 > 9.7 > 8.8 Treat for a presumed GI source with IV protonix + carafate. clear liquids and advance as tolerated. General surgery is consulted. She does have a h/o cirrhosis, but does not appear to be having a variceal bleed at this time. (2) Abdominal pain: Status: Acute Assessment and plan: Recent C.Diff. She did not complete her course of antibiotics she was prescribed previously. Stool cx + for C.Diff. CT Abd/Pelvis w/o toxic megacolon. + stable appearing ascites and omental caking. Stable appearance of masses in presacral fat. (3) C. difficile colitis: Status: Resolved Assessment and plan: As above. Now on oral vancomycin and IV flagyl. (4) Diarrhea: Status: Acute Assessment and plan: As above Check C.diff. Suspect that she will need to restart therapy. (5) Alcohol abuse: Status: Chronic Assessment and plan: Monitor for EtOH w/d. (6) Portal hypertension: Status: Chronic Assessment and plan: at risk of portal gastropathy and varices. As above (7) Hypomagnesemia: Status: Acute Assessment and plan: Repleted in the ED. Now low normal. (8) DVT prophylaxis: Status: Acute Assessment and plan: SCDs Chemical DVT ppx is contraindicated in setting of suspected acute bleeding (9) Discharge planning issues: Status: Acute Assessment and plan: DNR/DNI Admit to the ICU, now med-surg status. Subjective Subjective Patient reports: no new complaints, pain is less, nausea and afebrile; denies vomiting or shortness of breath Interval history since last seen: Tolerating clear liquids. Exam Narrative Exam Narrative: General: Lying in bed with blanket covering much of head. Conversant. Neurological: A&ox3, Esther Psychiatric: Appropriate speech pattern/content. Flat affect. Skin: Visible skin intact HEENT: sclera clear. MMM. Cardiovascular: RRR, no murmur Lungs: CTAB Gastrointestinal: soft, tender to palpation, +nontense ascites Extremities: no edema BLEs or calf pain. Objective Last Vital Signs Temp 36.5 C 02/17/23 07:42 Pulse 79 02/17/23 12:00 Resp 23 02/17/23 12:00 BP 114/60 02/17/23 12:00 Pulse Ox 94 02/17/23 12:00 Laboratory Results - last 24 hr 02/16/23 02/16/23 02/16/23 16:25 18:10 18:10 WBC RBC Hgb 9.7 L D Hct 30.0 L MCV MCH MCHC RDW Plt Count MPV Reticulocyte % (Auto) Immature Gran % Neutrophils % Lymphocytes % Monocytes % Eosinophils % Basophils % Nucleated RBC % Absolute Neutrophils Absolute Lymphocytes Absolute Monocytes Absolute Eosinophils Absolute Basophils VBG Lactate 1.3 Sodium Potassium Chloride Carbon Dioxide Anion Gap BUN Creatinine Est GFR (CKD-EPI 2020) Glucose Calcium Magnesium Iron TIBC Transferrin % Sat Ferritin Stl C.difficile Tox PCR Positive A Add-On Test Request 02/16/23 02/16/23 02/16/23 18:10 18:10 18:10 WBC RBC Hgb Hct MCV MCH MCHC RDW Plt Count MPV Reticulocyte % (Auto) 3.2 H Immature Gran % Neutrophils % Lymphocytes % Monocytes % Eosinophils % Basophils % Nucleated RBC % Absolute Neutrophils Absolute Lymphocytes Absolute Monocytes Absolute Eosinophils Absolute Basophils VBG Lactate Sodium Potassium Chloride Carbon Dioxide Anion Gap BUN Creatinine Est GFR (CKD-EPI 2020) Glucose Calcium Magnesium Iron 162 TIBC 224 L Transferrin % Sat 72 H Ferritin 426 H Stl C.difficile Tox PCR Add-On Test Request 02/16/23 02/17/23 02/17/23 Unknown 05:40 05:40 WBC 2.14 L RBC 2.68 L Hgb 8.8 L Hct 27.0 L MCV 101 H MCH 32.8 MCHC 32.6 RDW 19.8 H Plt Count 117 L MPV 9.0 Reticulocyte % (Auto) Immature Gran % 0.5 Neutrophils % 59.7 Lymphocytes % 25.2 Monocytes % 13.6 Eosinophils % 0.5 Basophils % 0.5 Nucleated RBC % 0.0 Absolute Neutrophils 1.28 Absolute Lymphocytes 0.54 L Absolute Monocytes 0.29 Absolute Eosinophils 0.01 Absolute Basophils 0.01 VBG Lactate Sodium 140 Potassium 3.4 L Chloride 106 Carbon Dioxide 25.8 Anion Gap 8.2 BUN 14 Creatinine 0.8 Est GFR (CKD-EPI 2020) 76.31 Glucose 119 H Calcium 8.1 L Magnesium 1.8 Iron TIBC Transferrin % Sat Ferritin Stl C.difficile Tox PCR Add-On Test Request DONE PAWSS Have you Been Recently Intoxicated or Drunk Within the Last 30 days?: Yes Have you Ever Experienced Previous Episodes of Alcohol Withdrawal?: Yes Have you ever Experienced Withdrawal Seizures?: No Have you ever Experienced Delirium Tremens(DT)s?: No Have you ever undergone Alcohol Rehabilitation Treatment (i.e, inpt ot outpatient treatment programs)?: Yes Have you ever Experienced Blackouts?: No Have you ever Combined Alcohol with other Downers within the last 90 days?: No Have you ever Combined Alcohol with any other Substance of Abuse during the last 90 days?: No Evidence of Increased Autonomic Activity (i.e. HR>120, tremor, sweating, agitation, nausea)?: No Result: 3 Time Spent with Patient Time Spent with Patient: 35-49 minutes Time was spent: preparing to see the patient(eg.review tests), obtaining and/or reviewing separately otained hiistory, ordering medications,tests, procedures, referring, communicating with other health director critical care, indepentently interpreting results and counseling the patient
[2023-02-17] MEDS: Normal Saline 250 ML 500 ML IV (17:49)
--- NOTE | 2023-02-17 19:01 | INITIAL_ITS ---
Date of service: 02/17/23 Time of Service: 19:01 Care Management Initial Assmt Initial Assessment REASON FOR HOSPITALIZATION:: GI Bleed PREVIOUS FUNCTIONAL STATUS/SOCIAL/FAMILY SUPPORTS:: Leticia lives alone in her home in [place] with her dog and cats. She has a sister who takes care of her animals when she is hospitalized, and a homemaker, Marry, who visits her 3x/week for 2 hrs at a time. Her son Seth is her DPOA, although he lives in [facility]. CURRENT FUNCTIONAL STATUS:: Leticia was lying in bed when CM met with her. She was awake, alert and oriented and engaged well with CM. Leticia was smiling and appeared to remember CM from prior hospital stays. She stated that she is feeling pretty good. For a while the conversation centered around work and vacations and she shared that she worked for the [employer] for 37 years. ADVANCE DIRECTIVES:: [employer] on file. Son, Seth, listed as agent and DPOA. Has patient been provided with info about the portal/API?: Yes Did the patient sign up for the portal?: Yes CODE STATUS:: DNR/DNI INSURANCE COVERAGE / FINANCIAL ISSUES:: [facility] Medicare replacement CURRENT HOME/COMMUNITY SERVICES/EQUIPMENT:: Leticia owns a walker, a cane, and a toilet seat riser. She has a homemaker three days a week for two hours per day, in addition to MOW. PRIMARY CARE PHYSICIAN:: Lavelle Galindo POTENTIAL DISCHARGE NEEDS:: Evaluations for further needs, follow up appointments. PATIENT/FAMILY EDUCATION NEEDS:: Review of discharge instructions regarding medications, activity level, and follow up plan of care, and discussion of Ask Me Three. TRANSPORTATION:: [facility] private vehicle PLAN:: Anticipate Leticia will be discharged home when medically cleared by provider. She will follow up with her community providers and plan of care as directed. Leticia will transport home via [facility] private vehicle coordinated by CM. CM will continue to support Leticia and any discharge planning needs. PFSH All Active Problems (Updated 02/17/23 @ 18:20 by Margaret Boss DO) Colitis due to Clostridium difficile (Acute) Acute on chronic anemia (Acute) Anemia (Chronic) Portal hypertension (Chronic) Leukopenia (Acute) Macrocytic anemia (Acute) Hypokalemia (Acute) Hypomagnesemia (Acute) Shortness of breath (Acute) Lung cancer (Chronic) RUL Abdominal pain (Acute) Leukopenia (Acute) Thrombocytopenia (Chronic) Hypomagnesemia (Acute) Elevated LFTs (Acute) Macrocytic anemia (Acute) Pelvic mass (Acute) Pneumothorax after biopsy (Acute) 01/19/23 Per [facility] [place]. [place] Soft tissue mass (Acute) 12/29/22 PET at [facility] Avid lobulated pre-sacral. -hb Hypokalemia (Acute) Alcohol abuse (Chronic) DVT prophylaxis (Acute) Multiple rib fractures (Chronic) 03/11/19 [facility] Alcohol withdrawal (Acute) Hypomagnesemia (Acute) Breast nodule (Acute) Sleep disturbance (Acute) Sinus tachycardia (Acute) High anion gap metabolic acidosis (Acute) Elevated blood pressure reading with diagnosis of hypertension (Acute) Pincer nail deformity (Acute) Insomnia (Acute) Thrombocytopenia (Chronic) Elevated bilirubin (Acute) Mixed stress and urge urinary incontinence (Acute) Thyroid nodule (Acute) Anxiety (Chronic) Adverse effect of metronidazole (Acute) Medication monitoring encounter (Acute) Advance care planning (Acute) Cirrhosis of liver with ascites (Acute) Animal bite of right hand with infection (Acute) Umbilical hernia (Acute) Hyperbilirubinemia (Acute) Shortness of breath (Acute) Elevated blood pressure reading without diagnosis of hypertension (Acute) Left arm pain (Acute) Ambulatory dysfunction (Acute) Incontinence (Acute) Anorexia (Acute) Headache (Acute) Depression (Chronic) Chest pain (Acute) Foot pain, right (Acute) Tendinitis of left rotator cuff (Acute) Macrocytosis (Acute 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 Leukopenia (Acute) Headache (Acute) Epigastric abdominal pain (Acute) Calcific tendinitis of left shoulder (Acute) Pulmonary mass (Acute) spiculated mass Pneumonia (Acute) Depression with suicidal ideation (Acute) Alcohol abuse (Chronic) Diarrhea (Acute) Epigastric pain (Acute) Dehydration (Acute) Discharge planning issues (Acute) Difficult intravenous access (Acute) Multiple IV attempts, usually requires ultrasound placement. PTSD (post-traumatic stress disorder) (Acute) Anemia (Chronic) Depression (Chronic) Foot pain, right (Acute) T12 compression fracture (Acute) Presacral mass (Chronic) Deviated nasal septum (Acute) Frequent falls (Chronic) Head injury (Acute) Ambulatory dysfunction (Chronic) Shoulder pain, right (Chronic) Suicidal ideation (Acute) Dry eye (Acute) Pruritus (Acute) Dystrophic nail (Acute) AMBER (acute kidney injury) (Acute) Iron deficiency anemia (Chronic) Fall (Acute) Atelectasis of left lung (Chronic) Advance directive on file (Acute) Nodule of upper lobe of right lung (Acute ~09/13/18) 01/19/23 Increased in size per [facility]. -hb 09/13/18 [facility]; 12mm SPICULATED -kb Cataract (Chronic 11/07/15) Hypertension (Chronic) high today; she will check readings at home Hyperlipidemia (Chronic) Back pain, chronic (Chronic) Depression (Chronic) Osteopenia (Chronic) Medical History Adjustment disorder with depressed mood Alcoholic ketosis Anemia Cervical radicular pain neck pain and DJD [facility] 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) pls refrain from alcohol Chronic alcoholism she will not stop drinking unless she checks with me, so that we can help her avert withdrawal I do not think she is capable on her own--she would need placement to achieve required goal of 3 months of sobriety Chronic diarrhea Closed right humeral fracture Corneal ulcer, right (~08/23/18) 08/23/18; [facility] Fracture of humerus, left, closed Genital herpes simplex recurrent gential; suppressive Valtrex GERD (gastroesophageal reflux disease) GI bleed (12/20/16) Hypertension Hypokalemia Hypomagnesemia Incidental lung nodule, greater than or equal to 8mm 1cm, spiculated, stable for many years, recommend f/u in 6 mo Non-cardiac chest pain (09/21/16) [facility] 09/21/16 NEGATIVE MP Osteoarthritis Palliative care patient (03/21/17) Pancreatitis, alcoholic, acute Peripheral edema Photophobia of right eye Pleural effusion on left 03/11/19 [facility] Presacral mass (~09/15/18) 09/15/18 [facility] Sciatica right, epidural injuections [facility] Tubular adenoma of colon (01/28/17) Urinary incontinence 01/24/13 urethral suspension and sling at [facility] (bladder suspension 1991) 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 Bladder repair. Repair bladder injury, simple S/P laparoscopic cholecystectomy (~05/19/22) Family History Mother No problems noted. Father , DROWNED at age 50. No problems noted. Sister Personal history of malignant neoplasm MELANOMA Sister No problems noted. Grandfather Personal history of malignant neoplasm STOMACH Grandfather Personal history of malignant neoplasm PROSTATE Grandmother Heart disease AR Acute ill-defined cerebrovascular disease Grandmother Personal history of malignant neoplasm UTERINE Aunt , AR Heart disease AR Aunt , AR Heart disease Brother No problems noted. Social History Smoking/Tobacco Use Status: Never Smoking risk assessment performed?: Yes Alcohol Intake: current Alcohol Intake frequency: 3 or more drinks per day Alcohol type: hard liquor Drug use: Never Substance use type: does not use Details: Last alcoholic drink Mike andreyjohanne, 2 days ago Current gender identity: female Do you feel safe at home: Yes Do you feel safe in your relationship?: No Additional Social history: Has 1 dog, 4 cats.
[2023-02-17] MEDS: Acetaminophen 325 MG TAB PO (20:35)
[2023-02-17] MEDS: Lidocaine 5% Patch 2 PATCH TP (20:36)
[2023-02-17] MEDS: LORazepam 0.5 MG TAB PO (21:32)
[2023-02-17] MEDS: Melatonin 3 MG TAB 6 MG PO (21:32)
[2023-02-17] MEDS: Mirtazapine 15 MG TAB 7.5 MG PO (21:33)
[2023-02-18] VITALS (23 sets, daily range): BP systolic 92–149; BP diastolic 58–83; PULSE 70–102; RESP 10–26; TEMP 36.2–37; O2SAT 90–91
[2023-02-18] MEDS: metroNIDAZOLE 500 MG/100 ML BAG 100 MG IVPB ×3 (02:24→20:41)
[2023-02-18] MEDS: Sucralfate 1 GM TAB PO ×4 (04:31→20:40)
[2023-02-18] MEDS: Refresh PLUS Eye Drops 0.4ml 1 EACH OU ×5 (04:31→20:40)
[2023-02-18 06:29] LABS: Abs Immature Grans 0.02 10^3/uL (0.0-0.06); Absolute Basophil Count 0.02 10^3/uL (0.0-0.2); Absolute Eosinophil Count 0.01 10^3/uL (0.0-0.7); Absolute Lymphocyte Count 0.52 10^3/uL (1.2-3.4); Absolute Monocyte Count 0.22 10^3/uL (0.1-0.8); Absolute Neutrophil Count 1.46 10^3/uL (1.2-6.7); Basophils % 0.9; Eosinophils % 0.4; HGB 8.8 g/dL (11.2-15.7); Immature Grans % 0.9; Lymphocytes % 23.1; MCH 31.8 pg (27.0-33.0); MCHC 32.6 % (32.0-36.0); MCV 98 fL (80-95); MPV 8.9 fL (8.0-11.0); Monocytes % 9.8; Neutrophils % 64.9; Platelet Count 120 10^3/uL (130-400); RBC 2.77 10^6/uL (3.93-5.22); RDW-SD 64.3 fL; WBC 2.25 10^3/uL (4.4-10.8)
[2023-02-18 06:59] LABS: ALT 9 U/L (14-59); AST 35 U/L (15-37); Albumin 2.2 g/dL (3.4-5.0); Alkaline Phosphatase 149 U/L (46-116); Anion Gap 7.9 mmol/L (3-11); BUN 10 mg/dL (7-18); CO2 24.1 mmol/L (21.0-32.0); CREATININE 0.9 mg/dL (0.55-1.02); Chloride 105 mmol/L (98-107); Estimated GFR 66.26 (mL/min/1.73m2); Glucose 130 mg/dL (74-106); Sodium 137 mmol/L (136-145); Total Protein 4.5 g/dL (6.4-8.2)
[2023-02-18 07:09] LABS: Potassium 2.9 mmol/L (3.5-5.1)
[2023-02-18] MEDS: Budesonide 0.5 MG/2 ML UPD VIAL IH (08:19)
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
[2023-02-18 09:32] LABS: Transferrin 138 mg/dL (201-352)
[2023-02-18] MEDS: HYDROmorphone 2 MG/ML SYR 1 MG IVP (10:11)
[2023-02-18] MEDS: Normal Saline Flush 10 ML SYR IVP ×3 (10:11→20:40)
[2023-02-18] MEDS: Patch Removal 2 EACH TP (10:51)
[2023-02-18] MEDS: Ondansetron O.D.T. 4 MG TABEF PO (10:52)
[2023-02-18] MEDS: Normal Saline 500 ML IV (10:53)
[2023-02-18] MEDS: Normal Saline 1,000 ML 100 ML IV (11:17)
[2023-02-18] MEDS: valACYclovir 500 MG TAB PO (11:18)
[2023-02-18] MEDS: Venlafaxine 75 MG CAPCR PO (11:18)
[2023-02-18] MEDS: Ferrous Sulfate 325 MG TAB PO ×2 (11:19→20:41)
[2023-02-18] MEDS: Metoprolol 50 MG TAB PO (11:19)
[2023-02-18] MEDS: Thiamine 100 MG TAB PO (11:19)
[2023-02-18] MEDS: amLODIPine 10 MG TAB PO (11:19)
[2023-02-18] MEDS: Aspirin E.C. 81 MG TABEC PO (11:19)
[2023-02-18] MEDS: QUEtiapine 25 MG TAB 12.5 MG PO ×2 (11:19→20:40)
[2023-02-18] MEDS: Mirabegron 50 MG TABCR PO (11:19)
[2023-02-18] MEDS: busPIRone 5 MG TAB PO ×2 (11:19→20:40)
[2023-02-18] MEDS: Folic Acid 1 MG TAB PO (11:19)
[2023-02-18] MEDS: Cyanocobalamin 500 MCG TAB 1000 MCG PO (11:20)
[2023-02-18] MEDS: Multivitamin TAB 1 TAB PO (11:20)
[2023-02-18] MEDS: Pantoprazole 40 MG VIAL 80 MG IVP ×2 (11:24→21:52)
[2023-02-18] MEDS: POTASSIUM CHLORIDE 20 MEQ/100 ML BAG 50 MEQ IVPB ×2 (13:00→16:06)
--- NOTE | 2023-02-18 14:10 | W.PM.PROGNOT ---
Date of Service Date of service: 02/18/23 Time of Service: 14:11 Assessment and Plan Assessment and plan (1) Acute on chronic anemia: Status: Acute Assessment and plan: She was reportedly hematest negative in the ED. S/p 1 unit pRBCS. Hgb:7.1 > 6.1 > 9.7 > 8.8 > 8.8 Treat for a presumed GI source with IV protonix + carafate. clear liquids and advance as tolerated. General surgery is consulted. She does have a h/o cirrhosis, but does not appear to be having a variceal bleed at this time. (2) Abdominal pain: Status: Acute Assessment and plan: Recent C.Diff. She did not complete her course of antibiotics she was prescribed previously. Stool cx + for C.Diff. CT Abd/Pelvis w/o toxic megacolon. + stable appearing ascites and omental caking. Stable appearance of masses in presacral fat. + evidence of colitis. (3) C. difficile colitis: Status: Resolved Assessment and plan: As above. Now on oral vancomycin and IV flagyl. Stool volume diminishing. PRN lomotil. (4) Alcohol abuse: Status: Chronic Assessment and plan: Monitor for EtOH w/d. (5) Portal hypertension: Status: Chronic Assessment and plan: at risk of portal gastropathy and varices. As above (6) Hypomagnesemia: Status: Acute Assessment and plan: Repleted in the ED. Now low normal. (7) DVT prophylaxis: Status: Acute Assessment and plan: SCDs Chemical DVT ppx is contraindicated in setting of suspected acute bleeding (8) Discharge planning issues: Status: Acute Assessment and plan: DNR/DNI Admit to the ICU, now med-surg status. Subjective Subjective Patient reports: nausea and afebrile; denies vomiting Interval history since last seen: C/O diffuse abd pain particularly in epigastric area. Less stool volume and frequency. Exam Narrative Exam Narrative: General: Lying supine. c/o abd pain. Appears uncomfortable. Neurological: A&ox3, Esther HEENT: sclera clear. MMM. Cardiovascular: RRR, no murmur Lungs: CTAB Gastrointestinal: soft, diffusely tenders. + fluid wave. Extremities: no edema BLEs or calf pain. Objective Last Vital Signs Temp 37.0 C 02/18/23 04:00 Pulse 92 H 02/18/23 07:00 Resp 25 H 02/18/23 07:00 BP 139/75 02/18/23 07:00 Pulse Ox 95 02/17/23 23:18 Laboratory Results - last 24 hr 02/16/23 02/18/23 02/18/23 18:10 05:40 05:40 WBC 2.25 L RBC 2.77 L Hgb 8.8 L Hct 27.0 L MCV 98 H MCH 31.8 MCHC 32.6 RDW 18.0 H Plt Count 120 L MPV 8.9 Immature Gran % 0.9 Neutrophils % 64.9 Lymphocytes % 23.1 Monocytes % 9.8 Eosinophils % 0.4 Basophils % 0.9 Nucleated RBC % 0.0 Absolute Neutrophils 1.46 Absolute Lymphocytes 0.52 L Absolute Monocytes 0.22 Absolute Eosinophils 0.01 Absolute Basophils 0.02 Sodium 137 Potassium 2.9 L Chloride 105 Carbon Dioxide 24.1 Anion Gap 7.9 BUN 10 Creatinine 0.9 Est GFR (CKD-EPI 2020) 66.26 Glucose 130 H Calcium 8.0 L Transferrin 138 L Total Bilirubin 1.0 AST 35 ALT 9 L Alkaline Phosphatase 149 H Total Protein 4.5 L Albumin 2.2 L PAWSS Have you Been Recently Intoxicated or Drunk Within the Last 30 days?: No Have you Ever Experienced Previous Episodes of Alcohol Withdrawal?: Yes Have you ever Experienced Withdrawal Seizures?: No Have you ever Experienced Delirium Tremens(DT)s?: Yes Have you ever undergone Alcohol Rehabilitation Treatment (i.e, inpt ot outpatient treatment programs)?: Yes Have you ever Experienced Blackouts?: No Have you ever Combined Alcohol with other Downers within the last 90 days?: No Have you ever Combined Alcohol with any other Substance of Abuse during the last 90 days?: No Evidence of Increased Autonomic Activity (i.e. HR>120, tremor, sweating, agitation, nausea)?: Yes Result: 4 Time Spent with Patient Time Spent with Patient: 25-34 minutes Time was spent: preparing to see the patient(eg.review tests), obtaining and/or reviewing separately otained hiistory, ordering medications,tests, procedures, referring, communicating with other health progressive care manager, indepentently interpreting results and care coordination
--- NOTE | 2023-02-18 14:31 | IN_ITS ---
Date of service: 02/18/23 Time of Service: 14:12 PT Notes Visit Reasons: Symtomatic anemia of acute GI blood loss Inpatient Physical Therapy Evaluation Date: 02/18/2023 Referring Doctor:?Kimmy Sierra,? BLEND PLANT OPERATOR PT Orders: PT CONSULT: Eval/Treat. Precautions: Standard. Frequent falls.? Activity as tolerated. Patient Profile/Admitting Diagnosis:? Leticia is a 77-year-old female who presented to the ED on 02/16/2023 due to nausea, vomitting, and diarrhea. ? Patient is admitted to [facility] for management of acute on chronic anemia, abdominal pain, C.Difficile colitis, ETOH abuse, portal hypertension, hypomagnesemia. PMHX: All Active Problems?(Updated 02/16/23 @ 16:51 by Laly Dumont MD) Acute on chronic anemia (Acute) Anemia (Chronic) Portal hypertension (Chronic) Leukopenia (Acute) Macrocytic anemia (Acute) Hypokalemia (Acute) Hypomagnesemia (Acute) Shortness of breath (Acute) Lung cancer (Chronic) RUL Abdominal pain (Acute) Leukopenia (Acute) Thrombocytopenia (Chronic) Hypomagnesemia (Acute) Elevated LFTs (Acute) Macrocytic anemia (Acute) Pelvic mass (Acute) Pneumothorax after biopsy (Acute) 01/19/23? Per [facility] CXR.? -hb Soft tissue mass (Acute) 12/29/22? PET at [facility] Avid lobulated pre-sacral.? -hb Hypokalemia (Acute) Alcohol abuse (Chronic) DVT prophylaxis (Acute) Multiple rib fractures (Chronic) 03/11/19 [facility] Alcohol withdrawal (Acute) Hypomagnesemia (Acute) Breast nodule (Acute) Sleep disturbance (Acute) Sinus tachycardia (Acute) High anion gap metabolic acidosis (Acute) Elevated blood pressure reading with diagnosis of hypertension (Acute) Pincer nail deformity (Acute) Insomnia (Acute) Thrombocytopenia (Chronic) Elevated bilirubin (Acute) Mixed stress and urge urinary incontinence (Acute) Thyroid nodule (Acute) Anxiety (Chronic) Adverse effect of metronidazole (Acute) Medication monitoring encounter (Acute) Advance care planning (Acute) Cirrhosis of liver with ascites (Acute) Animal bite of right hand with infection (Acute) Umbilical hernia (Acute) Hyperbilirubinemia (Acute) Shortness of breath (Acute) Elevated blood pressure reading without diagnosis of hypertension (Acute) Left arm pain (Acute) Ambulatory dysfunction (Acute) Incontinence (Acute) Anorexia (Acute) Headache (Acute) Depression (Chronic) Chest pain (Acute) Foot pain, right (Acute) Tendinitis of left rotator cuff (Acute) Macrocytosis (Acute 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 Leukopenia (Acute) Headache (Acute) Epigastric abdominal pain (Acute) Calcific tendinitis of left shoulder (Acute) Pulmonary mass (Acute) spiculated massPneumonia (Acute) Depression with suicidal ideation (Acute) Alcohol abuse (Chronic) Diarrhea (Acute) Epigastric pain (Acute) Dehydration (Acute) Discharge planning issues (Acute) Difficult intravenous access (Acute) Multiple IV attempts, usually requires ultrasound placement.PTSD (post-traumatic stress disorder) (Acute) Anemia (Chronic) Depression (Chronic) Foot pain, right (Acute) T12 compression fracture (Acute) Presacral mass (Chronic) Deviated nasal septum (Acute) Frequent falls (Chronic) Head injury (Acute) Ambulatory dysfunction (Chronic) Shoulder pain, right (Chronic) Suicidal ideation (Acute) Dry eye (Acute) Pruritus (Acute) Dystrophic nail (Acute) AMBER (acute kidney injury) (Acute) Iron deficiency anemia (Chronic) Fall (Acute) Atelectasis of left lung (Chronic) Advance directive on file (Acute) Nodule of upper lobe of right lung (Acute ~09/13/18) 01/19/23? Increased in size per [facility].? [facility] SPICULATED -kb Cataract (Chronic 11/07/15) Hypertension (Chronic) high today; she will check readings at homeHyperlipidemia (Chronic) Back pain, chronic (Chronic) Depression (Chronic) Osteopenia (Chronic) Medical History? Adjustment disorder with depressed mood Alcoholic ketosis Anemia Cervical radicular pain neck pain and DJD [facility] 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) pls refrain from alcohol Chronic alcoholism she will not stop drinking unless she checks with me, so that we can help her avert withdrawal I do not think she is capable on her own--she would need placement to achieve required goal of 3 months of sobriety Chronic diarrhea Closed right humeral fracture Corneal ulcer, right (~08/23/18) 08/23/18; UV-kbFracture of humerus, left, closed Genital herpes simplex recurrent gential; suppressive Valtrex GERD (gastroesophageal reflux disease) GI bleed (12/20/16) Hypertension Hypokalemia Hypomagnesemia Incidental lung nodule, greater than or equal to 8mm 1cm, spiculated, stable for many years, recommend f/u in 6 mo Non-cardiac chest pain (09/21/16) [facility] 09/21/16 NEGATIVE MP Osteoarthritis Palliative care patient (03/21/17) Pancreatitis, alcoholic, acute Peripheral edema Photophobia of right eye Pleural effusion on left 03/11/19 [facility] Presacral mass (~09/15/18) 09/15/18 [facility] Sciatica right, epidural injuections [facility] Tubular adenoma of colon (01/28/17) Urinary incontinence 01/24/13 urethral suspension and sling at [facility] (bladder suspension 1991) 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 Colonoscopy - MAC (01/28/17) EGD - MAC (12/20/16) History of bilateral ligation of fallopian tubes History of Surgical Procedure a. Bladder repair.Repair bladder injury, simple S/P laparoscopic cholecystectomy (~05/19/22) Social History/Home Situation: Leticia lives in a private home in [place], [place]. ? She has a caregiver who comes in once a week for 2 hours each time to assist with laundry, minor house chores, and grocery shopping.? Patient is independent with ADLs using a front- wheeled walker. No longer receives meals on wheels, does frozen dinners now. She no longer drives.? Sister lives 2 miles away and helps minimally,? she is taking care of the patient's cat right now. Equipment Owned/DME: 3WW, FWW, SC, grab bars, emergency alert device Subjective: Difficulty with staying awake. Continues to report pain in ribs on B sides. Reports dizziness when chair feature of bed was initiated. Complains of being too fatigued to do anything. Objective: General Observation:?Supine in bed.? Telemtry monitoring in place. Mental Status: Drowsy but responses are appropriate. Able to keep conversation for about a minute or two and then eyes start to close unless provider continues to engage patient. Pain: sides of upper chest on B sides at rest ROM: Right Upper Extremity: ? Shoulder Flexion allows up to 150 degrees. Shoulder abduction allows up to 120 degrees. Elbow flexion WFL. Wrist flexion WFL. Functional opening and closing of hand WFL. Left Upper Extremity: ? Shoulder Flexion allows up to 150 degrees. Shoulder abduction allows up to 120 degrees. Elbow flexion WFL. Wrist flexion WFL. Functional opening and closing of hand WFL. Right Lower Extremity: Hip flexion allows up to 20 degrees. Hip abduction lacks the last 50% of AROM. Knee flexion 30-90 degrees. Knee extension -30 degrees.? Ankle dorsiflexion WFL. Ankle plantarflexion WFL. Left Lower Extremity: Hip flexion allows up to 20 degrees. Hip abduction lacks the last 50% of AROM. Knee flexion 30-90 degrees. Knee extension -30 degrees.? Ankle dorsiflexion WFL. Ankle plantarflexion WFL. Strength: Right Upper Extremity: Shoulder flexors 3-/5. Shoulder abductors 3-/5. Elbow flexors 4/5. Elbow extensors 4/5. Environmental Maintenance Worker strong. Left Upper Extremity: Shoulder flexors 3-/5. Shoulder abductors 3-/5. Elbow flexors 4/5. Elbow extensors 4/5. Environmental Maintenance Worker strong. Right Lower Extremity: Hip flexors 2-/5. Hip abductors 3-/5. Knee flexors 2-/5. Knee extensors 2-/5. Ankle dorsiflexors 2-/5. Ankle plantarflexors 2-/5. Left Lower Extremity: Hip flexors 2-/5. Hip abductors 3-/5. Knee flexors 2-/5. Knee extensors 2-/5. Ankle dorsiflexors 2-/5. Ankle plantarflexors 2-/5. Bed Mobility/Transfers: Dr Real VICTOR(surgeon) came in for central line placement for patient. Will try to revisit patient to re-assess this Gait: Dr Real VICTOR(surgeon) came in for central line placement for patient. Will try to revisit patient to re-assess this. Balance: Static Sitting: Unable to test Dynamic Sitting: Unable to test Static Standing: Unable to test Dynamic Standing: Unable to test Special Tests: Mobility Limitations Standardized Measure [facility] 6 clicks Basic Mobility Inpatient Short Form: Raw Score:9 ? CMS Score: 81% deficit Informed Consent/Education:? Patient was instructed in purpose of PT consult and plan of care. Agreeable to proceed with established PT POC to achieve personal goals. Assessment: Patient presents with clinical signs and symptoms consistent with current/admitting diagnoses that have resulted to mobility limitations, gait instability, generalized weakness, and impairment of motor control as demonstrated by the following impairment level findings: 1.? Decreased strength to B UE/LE major muscle groups 2.? Impaired static and dynamic standing balance 3. Dizziness 4. Fatigue Impairments are contributing to the following functional limitations: 2.? Inability to safely ambulate due to admitting diagnoses and anxiety over increased dizziness 3.? Increase completion time for mobility ADL performance 4.? Increased fall risk Patient is assessed as a 51918 moderate complexity based on the following: History: 75-year-old female with impairment level findings, functional impairments, medical history, and [facility] deficit score of 47% Examination: Demonstrable impairment in strength, balance, and range of motion with underlying impairments and functional limitations as documented above Presentation: Evolving Decision Makin moderate complexity Goals: Goals X1 week 1. Supine-Sit independent 2. Sit-Supine independent 3. Sit-Stand independent 4. Stand-Sit independent 5. Bed-Chair independent 6. Chair-Bed independent 7.? Independent gait on level surface with use of straight cane for at least 100 feet without report of pain nor dyspnea 8.? Independent stair negotiation while holding onto bilateral rails for at least 5 steps without report of pain nor dyspnea 9. Good static and dynamic standing balance/tolerance DISCHARGE RECOMMENDATIONS: [] ? Home with no services [] [X] ? Home with services.? Home when medically cleared by hospitalist.? Patient will benefit from home health PT services in order to progress mobility level using least restrictive assistive ambulatory device, assess home safety, identify additional equipment needs, and establish a functional maintenance program that will increase ability of patient to remain at home. [] ? Home with outpatient PT [] [] ? SNF for continued rehabilitation [] [] ? Residential Care [] [] ? SNF versus LTC based on ability to participate and progress [] TREATMENT CODE/TIME: 78037 x 15 minutes beginning at 14:12 PM. Thank you for the opportunity to participate in the care of this patient. Tawana Cruz PT, DPT, CLT [facility] [place], [place]
[2023-02-18] MEDS: Normal Saline-STERILE FIELD 0.9% 10 ML SYR (14:50)
--- NOTE | 2023-02-18 15:00 | DI.RAD_ITS ---
Exam(s) XR PORTABLE CHEST AP POST LINE EXAM: XR PORTABLE CHEST AP POST LINE CLINICAL HISTORY: S/P IJ line placement TECHNIQUE: 2D digital imaging was performed of the chest. One image was obtained. An AP view was ob tained. COMPARISON: CR,XR XR PORTABLE CHEST AP from 02/13/2023 FINDINGS: MEDIASTINUM: Normal. HEART: Normal. PULMONARY VASCULATURE: Normal. LUNGS: Unchanged compared to prior examination. PLEURAL SPACE: No pleural effusion or pneumothorax. BONE:Within normal limits for the patient's age. OTHER FINDINGS:There has been interval placement of a right IJ catheter. The tip of the catheter is at the junction of the superior vena cava and right atrium. IMPRESSION: The tip of the right IJ catheter is at the junction of the superior vena cava and right atrium. No p neumothorax is present. DATA REPOSITORY: RADIATION DOSE DELIVERED:
--- NOTE | 2023-02-18 15:18 | PGE_ITS ---
Date of Service Date of service: 02/18/23 Time of Service: 15:19 Assessment and Plan Assessment and plan (1) Colitis due to Clostridium difficile: Status: Acute Assessment and plan: Right IJ central triple lumen catheter placed to 16 cm at the skin with ultrasound guideance. Subjective Subjective Interval history since last seen: Re-consult for central line Objective Last Vital Signs Temp 98.6 F 02/18/23 04:00 Pulse 79 02/18/23 12:46 Resp 12 02/18/23 12:46 BP 105/72 02/18/23 12:46 Pulse Ox 95 02/17/23 23:18 Laboratory Results - last 24 hr 02/16/23 02/18/23 02/18/23 18:10 05:40 05:40 WBC 2.25 L RBC 2.77 L Hgb 8.8 L Hct 27.0 L MCV 98 H MCH 31.8 MCHC 32.6 RDW 18.0 H Plt Count 120 L MPV 8.9 Immature Gran % 0.9 Neutrophils % 64.9 Lymphocytes % 23.1 Monocytes % 9.8 Eosinophils % 0.4 Basophils % 0.9 Nucleated RBC % 0.0 Absolute Neutrophils 1.46 Absolute Lymphocytes 0.52 L Absolute Monocytes 0.22 Absolute Eosinophils 0.01 Absolute Basophils 0.02 Sodium 137 Potassium 2.9 L Chloride 105 Carbon Dioxide 24.1 Anion Gap 7.9 BUN 10 Creatinine 0.9 Est GFR (CKD-EPI 2020) 66.26 Glucose 130 H Calcium 8.0 L Transferrin 138 L Total Bilirubin 1.0 AST 35 ALT 9 L Alkaline Phosphatase 149 H Total Protein 4.5 L Albumin 2.2 L Procedures Central Line Placement Right IJ: Time out performed: Yes Patient placed on monitor/pulse ox: Yes MD prep: mask, gown and gloves Central line prep: Chlorhexidine scrub and sterile drapes applied Local anesthesia used: lidocaine 1% Amount of anesthesia used (ml): 5 Ultrasound used for placement: Yes Central line lumen inserted: triple Post procedure: sutured in place, all ports aspirated, flushed, capped and sterile dressing applied Post procedure x-ray: tip of catheter in good position and no pneumothorax seen Patient tolerated procedure: well Complications: none PAWSS Have you Been Recently Intoxicated or Drunk Within the Last 30 days?: No Have you Ever Experienced Previous Episodes of Alcohol Withdrawal?: Yes Have you ever Experienced Withdrawal Seizures?: No Have you ever Experienced Delirium Tremens(DT)s?: Yes Have you ever undergone Alcohol Rehabilitation Treatment (i.e, inpt ot outpatient treatment programs)?: Yes Have you ever Experienced Blackouts?: No Have you ever Combined Alcohol with other Downers within the last 90 days?: No Have you ever Combined Alcohol with any other Substance of Abuse during the last 90 days?: No Evidence of Increased Autonomic Activity (i.e. HR>120, tremor, sweating, agitation, nausea)?: Yes Result: 4 Time Spent with Patient Time Spent with Patient: >50 minutes Time was spent: preparing to see the patient(eg.review tests), referring, communicating with other health coronary care unit nurse, indepentently interpreting results, counseling the patient and care coordination
[2023-02-18] MEDS: ALBUMIN HUMAN 25 GM/100 ML BTL IVPB (18:37)
[2023-02-18] MEDS: Furosemide 20 MG/2 ML VIAL IVP (19:07)
[2023-02-18] MEDS: Lidocaine 5% Patch 2 PATCH TP (20:41)
[2023-02-18] MEDS: Mirtazapine 15 MG TAB 7.5 MG PO (21:53)
[2023-02-18] MEDS: Melatonin 3 MG TAB 6 MG PO (21:53)
[2023-02-18] MEDS: LORazepam 0.5 MG TAB PO (21:54)
[2023-02-19] VITALS (30 sets, daily range): BP systolic 95–140; BP diastolic 44–89; PULSE 68–100; RESP 20–27; TEMP 36.8–36.9; O2SAT 90–95
[2023-02-19] MEDS: Normal Saline Flush 10 ML SYR IVP ×2 (03:43→20:15)
[2023-02-19] MEDS: metroNIDAZOLE 500 MG/100 ML BAG 100 MG IVPB ×4 (03:43→20:16)
[2023-02-19] MEDS: Sucralfate 1 GM TAB PO ×5 (06:13→21:20)
[2023-02-19] MEDS: Refresh PLUS Eye Drops 0.4ml 1 EACH OU ×4 (06:13→20:16)
[2023-02-19 06:22] LABS: Abs Immature Grans 0.02 10^3/uL (0.0-0.06); Absolute Basophil Count 0.02 10^3/uL (0.0-0.2); Absolute Eosinophil Count 0.01 10^3/uL (0.0-0.7); Absolute Lymphocyte Count 0.35 10^3/uL (1.2-3.4); Absolute Monocyte Count 0.19 10^3/uL (0.1-0.8); Absolute Neutrophil Count 1.88 10^3/uL (1.2-6.7); Basophils % 0.8; Eosinophils % 0.4; HCT 23.2 % (36.0-46.0); HGB 7.5 g/dL (11.2-15.7); Immature Grans % 0.8; Lymphocytes % 14.2; MCH 31.6 pg (27.0-33.0); MCHC 32.3 % (32.0-36.0); MCV 98 fL (80-95); MPV 8.7 fL (8.0-11.0); Monocytes % 7.7; Neutrophils % 76.1; Platelet Count 106 10^3/uL (130-400); RBC 2.37 10^6/uL (3.93-5.22); RDW 18.1 % (11.7-14.6); RDW-SD 64.6 fL; WBC 2.47 10^3/uL (4.4-10.8)
[2023-02-19 06:49] LABS: Anion Gap 9.2 mmol/L (3-11); BUN 7 mg/dL (7-18); CO2 23.8 mmol/L (21.0-32.0); CREATININE 0.8 mg/dL (0.55-1.02); Calcium 7.8 mg/dL (8.5-10.1); Chloride 106 mmol/L (98-107); Estimated GFR 76.31 (mL/min/1.73m2); Glucose 123 mg/dL (74-106); Magnesium 1.2 mg/dL (1.8-2.4); Sodium 139 mmol/L (136-145)
[2023-02-19] MEDS: Budesonide 0.5 MG/2 ML UPD VIAL IH (08:34)
[2023-02-19] MEDS: Patch Removal 2 EACH TP (08:35)
[2023-02-19] MEDS: MAGNESIUM SULFATE 4 GM/100 ML BAG IVPB (09:24)
[2023-02-19] MEDS: Normal Saline 500 ML 30 ML IV (09:25)
[2023-02-19] MEDS: POTASSIUM CHLORIDE 20 MEQ/100 ML BAG 50 MEQ IVPB ×2 (09:28→11:32)
[2023-02-19] MEDS: Pantoprazole 40 MG VIAL 80 MG IVP ×2 (09:38→21:35)
[2023-02-19] MEDS: valACYclovir 500 MG TAB PO (09:51)
[2023-02-19] MEDS: amLODIPine 10 MG TAB PO (09:51)
[2023-02-19] MEDS: Metoprolol 50 MG TAB PO (09:51)
[2023-02-19] MEDS: Venlafaxine 75 MG CAPCR PO (09:51)
[2023-02-19] MEDS: Fosfomycin Tromethamine 3 GM PACKET PO (11:11)
[2023-02-19 12:04] LABS: HGB 8.1 g/dL (11.2-15.7)
[2023-02-19] MEDS: Ondansetron O.D.T. 4 MG TABEF PO (12:58)
--- NOTE | 2023-02-19 14:11 | PT.INTREAT ---
Date of service: 02/19/23 Time of Service: 09:20 PT Notes Visit Reasons: Symtomatic anemia of acute GI blood loss Inpatient Physical Therapy Treatment Note [facility] Date: 02/19/2023 Precautions: Standard.? Frequent falls.? Activity as tolerated. Subjective: Complaining of feeling very dizzy and nausea after drinking her coffee. Did not want to sit up due to this. Was willing to try doing some exercises in bed if they do not make her worse. Objective: Pain: Nausea and dizziness Therapeutic Exercises: Able to perform ankle pumps, hip IR/ER, quad sets, glut sets, shoulder IR/ER, bicep curls and supine punch ups with bilateral UEs for 10 reps each. Verbal cueing given with each exercise. Held on transfers supine to sit/ sit to supine today due to continuing to not feel well. Hope to try tomorrow. Assessment: Did well with bed activities. Plan: Attempt to continue to advance activities as able to tolerate. Hope to try sitting on edge of bed tomorrow. Treatment code/ time: 91931 x 1, 9:20 to 9:33 (13')
--- NOTE | 2023-02-19 15:58 | W.PM.PROGNOT ---
Date of Service Date of service: 02/19/23 Time of Service: 15:59 Assessment and Plan Assessment and plan (1) Acute on chronic anemia: Status: Acute Assessment and plan: She was reportedly hematest negative in the ED. S/p 1 unit pRBCS. Hgb:7.1 > 6.1 > 9.7 > 8.8 > 8.8>7.5>8.1 Treat for a presumed GI source with IV protonix + carafate. Advanced diet to full liquids. General surgery is consulted. Placed IJ d/t poor peripheral access. She does have a h/o cirrhosis, but does not appear to be having a variceal bleed at this time. (2) Abdominal pain: Status: Acute Assessment and plan: No pain today. Recent C.Diff. She did not complete her course of antibiotics she was prescribed previously. Stool cx + for C.Diff. CT Abd/Pelvis w/o toxic megacolon. + stable appearing ascites and omental caking. Stable appearance of masses in presacral fat. + evidence of colitis. (3) C. difficile colitis: Status: Resolved Assessment and plan: As above. Now on oral vancomycin and IV flagyl. Stool volume diminishing. PRN lomotil. (4) Alcohol abuse: Status: Chronic Assessment and plan: Monitor for EtOH w/d. Has never had any significant withdrawal sxs during previous hospitalizations. (5) Portal hypertension: Status: Chronic Assessment and plan: at risk of portal gastropathy and varices. As above (6) Hypomagnesemia: Status: Acute Assessment and plan: Repleted in the ED. Conts to require intermittent repletion. Monitor. (7) DVT prophylaxis: Status: Acute Assessment and plan: SCDs Chemical DVT ppx is contraindicated in setting of suspected acute bleeding (8) Discharge planning issues: Status: Acute Assessment and plan: DNR/DNI Admit to the ICU, now med-surg status. Subjective Subjective Patient reports: feels better, diarrhea, blood in stool (dark, tarry, heme +) and afebrile; denies vomiting or shortness of breath Interval history since last seen: She would like to advance diet to full liquids. Exam Narrative Exam Narrative: General: Lying supine. NAD. Pleasant and interactive. Neurological: A&Ox3, Esther HEENT: sclera clear. MMM. Cardiovascular: RRR, no murmur Lungs: CTAB Gastrointestinal: soft, NT, + fluid wave. Extremities: no edema BLEs or calf pain. Objective Last Vital Signs Temp 36.9 C 02/19/23 13:11 Pulse 68 02/19/23 14:00 Resp 23 02/19/23 14:01 BP 95/61 L 02/19/23 14:00 Pulse Ox 93 02/19/23 14:01 Laboratory Results - last 24 hr 02/19/23 02/19/23 02/19/23 05:45 05:45 12:00 WBC 2.47 L RBC 2.37 L Hgb 7.5 L 8.1 L Hct 23.2 L 25.0 L MCV 98 H MCH 31.6 MCHC 32.3 RDW 18.1 H Plt Count 106 L MPV 8.7 Immature Gran % 0.8 Neutrophils % 76.1 Lymphocytes % 14.2 Monocytes % 7.7 Eosinophils % 0.4 Basophils % 0.8 Nucleated RBC % 0.0 Absolute Neutrophils 1.88 Absolute Lymphocytes 0.35 L Absolute Monocytes 0.19 Absolute Eosinophils 0.01 Absolute Basophils 0.02 Sodium 139 Potassium 3.0 L Chloride 106 Carbon Dioxide 23.8 Anion Gap 9.2 BUN 7 Creatinine 0.8 Est GFR (CKD-EPI 2020) 76.31 Glucose 123 H Calcium 7.8 L Magnesium 1.2 L PAWSS Have you Been Recently Intoxicated or Drunk Within the Last 30 days?: No Have you Ever Experienced Previous Episodes of Alcohol Withdrawal?: Yes Have you ever Experienced Withdrawal Seizures?: No Have you ever Experienced Delirium Tremens(DT)s?: Yes Have you ever undergone Alcohol Rehabilitation Treatment (i.e, inpt ot outpatient treatment programs)?: Yes Have you ever Experienced Blackouts?: No Have you ever Combined Alcohol with other Downers within the last 90 days?: No Have you ever Combined Alcohol with any other Substance of Abuse during the last 90 days?: No Evidence of Increased Autonomic Activity (i.e. HR>120, tremor, sweating, agitation, nausea)?: Yes Result: 4 Time Spent with Patient Time Spent with Patient: 25-34 minutes Time was spent: preparing to see the patient(eg.review tests), obtaining and/or reviewing separately otained hiistory, ordering medications,tests, procedures, referring, communicating with other health career technical education teacher, indepentently interpreting results and counseling the patient
[2023-02-19] MEDS: Lidocaine 5% Patch 2 PATCH TP (20:15)
[2023-02-19] MEDS: QUEtiapine 25 MG TAB 12.5 MG PO (20:16)
[2023-02-19] MEDS: Furosemide 20 MG/2 ML VIAL IVP (20:16)
[2023-02-19] MEDS: Loperamide 2 MG CAP PO (20:16)
[2023-02-19] MEDS: busPIRone 5 MG TAB PO (20:17)
[2023-02-19] MEDS: Ferrous Sulfate 325 MG TAB PO (20:17)
[2023-02-19] MEDS: ALBUMIN HUMAN 25 GM/100 ML BTL IVPB (20:17)
[2023-02-19] MEDS: LORazepam 0.5 MG TAB PO (21:19)
[2023-02-19] MEDS: Mirtazapine 15 MG TAB 7.5 MG PO (21:19)
[2023-02-19] MEDS: Melatonin 3 MG TAB 6 MG PO (21:19)
[2023-02-20] VITALS (12 sets, daily range): BP systolic 98–109; BP diastolic 53–74; PULSE 78–100; RESP 14–25; TEMP 36.2–37; O2SAT 92–96
[2023-02-20] MEDS: metroNIDAZOLE 500 MG/100 ML BAG 100 MG IVPB ×4 (02:35→20:47)
[2023-02-20] MEDS: Ondansetron O.D.T. 4 MG TABEF PO ×2 (03:15→18:36)
[2023-02-20 06:13] LABS: Abs Immature Grans 0.01 10^3/uL (0.0-0.06); Absolute Basophil Count 0.01 10^3/uL (0.0-0.2); Absolute Eosinophil Count 0.01 10^3/uL (0.0-0.7); Absolute Lymphocyte Count 0.41 10^3/uL (1.2-3.4); Absolute Monocyte Count 0.24 10^3/uL (0.1-0.8); Absolute Neutrophil Count 1.72 10^3/uL (1.2-6.7); Basophils % 0.4; Eosinophils % 0.4; HGB 7.5 g/dL (11.2-15.7); Immature Grans % 0.4; Lymphocytes % 17.1; MCH 31.9 pg (27.0-33.0); MCHC 32.6 % (32.0-36.0); MCV 98 fL (80-95); MPV 8.9 fL (8.0-11.0); Neutrophils % 71.7; Platelet Count 111 10^3/uL (130-400); RBC 2.35 10^6/uL (3.93-5.22); RDW 18.6 % (11.7-14.6)
[2023-02-20 06:27] LABS: Anion Gap 9.5 mmol/L (3-11); BUN 7 mg/dL (7-18); CO2 23.5 mmol/L (21.0-32.0); CREATININE 0.9 mg/dL (0.55-1.02); Calcium 8.4 mg/dL (8.5-10.1); Chloride 106 mmol/L (98-107); Estimated GFR 66.26 (mL/min/1.73m2); Glucose 141 mg/dL (74-106); Sodium 139 mmol/L (136-145)
[2023-02-20 06:28] LABS: Potassium 2.9 mmol/L (3.5-5.1)
[2023-02-20] MEDS: Cyanocobalamin 500 MCG TAB 1000 MCG PO (08:20)
[2023-02-20] MEDS: Mirabegron 50 MG TABCR PO (08:20)
[2023-02-20] MEDS: amLODIPine 10 MG TAB PO (08:21)
[2023-02-20] MEDS: Refresh PLUS Eye Drops 0.4ml 1 EACH OU ×5 (08:21→23:25)
[2023-02-20] MEDS: Venlafaxine 75 MG CAPCR PO (08:21)
[2023-02-20] MEDS: busPIRone 5 MG TAB PO ×2 (08:21→20:46)
[2023-02-20] MEDS: Thiamine 100 MG TAB PO (08:21)
[2023-02-20] MEDS: Metoprolol 50 MG TAB PO (08:22)
[2023-02-20] MEDS: Multivitamin TAB 1 TAB PO (08:22)
[2023-02-20] MEDS: Folic Acid 1 MG TAB PO (08:22)
[2023-02-20] MEDS: QUEtiapine 25 MG TAB 12.5 MG PO ×2 (08:23→20:46)
[2023-02-20] MEDS: Sucralfate 1 GM TAB PO ×4 (08:23→21:13)
[2023-02-20] MEDS: POTASSIUM CHLORIDE 20 MEQ/100 ML BAG 50 MEQ IVPB ×2 (08:35→10:54)
[2023-02-20] MEDS: Patch Removal 2 EACH TP (08:47)
[2023-02-20] MEDS: valACYclovir 500 MG TAB PO (08:55)
[2023-02-20] MEDS: Ferrous Sulfate 325 MG TAB PO ×2 (08:56→20:46)
[2023-02-20] MEDS: Budesonide 0.5 MG/2 ML UPD VIAL IH (09:18)
[2023-02-20] MEDS: Pantoprazole 40 MG VIAL 80 MG IVP ×2 (10:54→22:23)
[2023-02-20] MEDS: Normal Saline Flush 10 ML SYR IVP (12:15)
[2023-02-20 12:32] LABS: HCT 23.3 % (36.0-46.0); HGB 7.4 g/dL (11.2-15.7)
[2023-02-20 12:39] LABS: Potassium 3.9 mmol/L (3.5-5.1)
--- NOTE | 2023-02-20 12:40 | PT.INTREAT ---
Date of service: 02/20/23 Time of Service: 11:30 PT Notes Visit Reasons: Symtomatic anemia of acute GI blood loss Inpatient Physical Therapy Treatment Note [facility] Date: 02/20/2023 SUBJECTIVE: Patient was sitting up in chair when I arrived to room. Still having a lot of stomach pain, but willing to try her PT exercises while sitting up in chair. Post exercises she indicated she would like to return to bed. Was feeling very tired. Nurse Blaze was made aware that patient would like to return to bed and was in agreement with this plan. Leticia request under garments be applied prior to returning to bed. OBJECTIVE: ? PAIN: Stomach pain ? BED MOBILITY/TRANSFERS Required mod assist with bringing legs up into bed when going sit to supine.?Was able to help boost herself up to head of bed with bed flat to reposition with slight assist of one. ? GAIT? Device: FWW Weight bearing: Full Assist: CGA Distance: 3ft chair to bed Was able to stand to have under garments donned. ? THERACT: Performed ankle pumps x 10 reps each, quad / glut sets x 10 reps, LAQ x 10 reps each, seated hip abd / adduction x 10 reps each and sit to stand exercise for 3 reps. Vitals monitored with telemetry.? ASSESSMENT:? PLAN: Continue strengthening, per plan of care, as able to tolerate. TREATMENT CODE/TIME: 69065 x 1 / 36562 x 1, 10:10 to 10:40 (30 minutes)
--- NOTE | 2023-02-20 12:49 | PHA.REVIEW2 ---
Pharmacy Admission Review Admission Clinical Review Admission Pharmacy Review: (Updated 02/17/23 @ 18:20 by Margaret Boss DO) Colitis due to Clostridium difficile (Acute) Acute on chronic anemia (Acute) Leukopenia (Acute) Hypomagnesemia (Acute) Abdominal pain (Acute) Pelvic mass (Acute) DVT prophylaxis (Acute) Cirrhosis of liver with ascites (Acute) Diarrhea (Acute) Discharge planning issues (Acute) Penicillins Allergy (Mild, Verified 02/16/23 08:34) Rash ramipril Allergy (Unknown, Verified 02/16/23 08:34) ITCHING meperidine [From Demerol] Adverse Reaction (Severe, Verified 02/16/23 08:34) Nausea bupropion Adverse Reaction (Mild, Verified 02/16/23 08:34) GI upset AMBER Inhibitors Adverse Reaction (Unknown, Verified 02/16/23 08:34) COUGH alendronate sodium Adverse Reaction (Unknown, Verified 02/16/23 08:34) GI Distress clarithromycin Adverse Reaction (Unknown, Verified 02/16/23 08:34) intolerant paroxetine Adverse Reaction (Unknown, Verified 02/16/23 08:34) Diarrhea Resuscitation Status DNR/DNI Height 5 ft Weight 69.4 kg Comments Comments/Follow Ups: Symptomatic anemia-on Protonix 80mg IV Q12h and Sucralfate, Ferrous Sulfate twice a day, recent C.Diff: did not complete home treatment with Dificid (now on oral Vanco, IV Flagyl), Stool heme positive 02/18/23. Follow H/H closely, GI meds, advancing diet Pharmacy Admission Review Renal Dosing Renal Dosing: BUN 7 mg/dL (7-18) 02/20/23 05:48 Creatinine 0.9 mg/dL (0.55-1.02) 02/20/23 05:48 CrCl~41.6ml/min Anticoagulation Anticoagulation: Hgb 7.4 g/dL (11.2-15.7) L 02/20/23 12:15 Hct 23.3 % (36.0-46.0) L 02/20/23 12:15 Plt Count 111 10^3/uL (130-400) L 02/20/23 05:48 INR 1.2 (0.9-1.1) H 02/16/23 10:38 Creatinine 0.9 mg/dL (0.55-1.02) 02/20/23 05:48 N/A contraindicated with GI Bleed H/H drifting down, did receive blood DVT Prophylaxis: N/A Relevant Labs Relevant Labs: Sodium 139 mmol/L (136-145) 02/20/23 05:48 Potassium 3.9 mmol/L (3.5-5.1) D 02/20/23 12:15 Chloride 106 mmol/L (98-107) 02/20/23 05:48 Magnesium 1.2 mg/dL (1.8-2.4) L 02/19/23 05:45 K+ and Magnesium were repleted Cardiac Review Cardiac Review: Amlodipine, Metoprolol List meds needing interventions: Will add hold parameters to b-j luis IV to PO Switch IV Medications: Reviewed (IV Protonix) Comments Comments/Follow Ups: Symptomatic anemia-on Protonix 80mg IV Q12h and Sucralfate, Ferrous Sulfate twice a day, recent C.Diff: did not complete home treatment with Dificid (now on oral Vanco, IV Flagyl), Stool heme positive 02/18/23. Follow H/H closely, GI meds, advancing diet
--- NOTE | 2023-02-20 16:24 | W.PM.PROGNOT ---
Date of Service Date of service: 02/20/23 Time of Service: 16:24 Assessment and Plan Assessment and plan (1) Acute on chronic anemia: Status: Acute Assessment and plan: She was reportedly hematest negative in the ED. S/p 1 unit pRBCS. Hgb:7.1 > 6.1 > 9.7 > 8.8 > 8.8>7.5>8.1>7.5 and 7.4 Treat for a presumed GI source with IV protonix + carafate. Advanced diet to full liquids. General surgery is consulted. Placed IJ d/t poor peripheral access. She does have a h/o cirrhosis, but does not appear to be having a variceal bleed at this time. (2) Abdominal pain: Status: Acute Assessment and plan: No pain today. Recent C.Diff. Stooling frequency has slowed considerably. She did not complete her course of antibiotics she was prescribed previously. Stool cx + for C.Diff. CT Abd/Pelvis w/o toxic megacolon. + stable appearing ascites and omental caking. Stable appearance of masses in presacral fat. + evidence of colitis. (3) C. difficile colitis: Status: Resolved Assessment and plan: As above. Now on oral vancomycin and IV flagyl. Stool volume diminishing. PRN lomotil. (4) Alcohol abuse: Status: Chronic Assessment and plan: Monitor for EtOH w/d. Has never had any significant withdrawal sxs during previous hospitalizations. (5) Portal hypertension: Status: Chronic Assessment and plan: at risk of portal gastropathy and varices. As above (6) Hypomagnesemia: Status: Acute Assessment and plan: Repleted in the ED. Conts to require intermittent repletion. Monitor. (7) DVT prophylaxis: Status: Acute Assessment and plan: SCDs Chemical DVT ppx is contraindicated in setting of suspected acute bleeding (8) Discharge planning issues: Status: Acute Assessment and plan: DNR/DNI Admitted to the ICU initially, now med-surg status. Subjective Subjective Patient reports: no new complaints, bowel movement (2 liquid stools yest. None as of yet today) and afebrile; denies nausea, vomiting or shortness of breath Exam Narrative Exam Narrative: General: Lying supine. NAD. Cardiovascular: RRR, no murmur Lungs: CTAB Gastrointestinal: soft, NT, + fluid wave. Extremities: no edema BLEs or calf pain. Objective Last Vital Signs Temp 36.7 C 02/20/23 15:44 Pulse 82 02/20/23 15:44 Resp 15 02/20/23 15:44 BP 98/64 L 02/20/23 15:44 Pulse Ox 96 02/20/23 15:44 Laboratory Results - last 24 hr 02/20/23 02/20/23 02/20/23 05:48 05:48 12:15 WBC 2.40 L RBC 2.35 L Hgb 7.5 L 7.4 L Hct 23.0 L 23.3 L MCV 98 H MCH 31.9 MCHC 32.6 RDW 18.6 H Plt Count 111 L MPV 8.9 Immature Gran % 0.4 Neutrophils % 71.7 Lymphocytes % 17.1 Monocytes % 10.0 Eosinophils % 0.4 Basophils % 0.4 Nucleated RBC % 0.0 Absolute Neutrophils 1.72 Absolute Lymphocytes 0.41 L Absolute Monocytes 0.24 Absolute Eosinophils 0.01 Absolute Basophils 0.01 Sodium 139 Potassium 2.9 L Chloride 106 Carbon Dioxide 23.5 Anion Gap 9.5 BUN 7 Creatinine 0.9 Est GFR (CKD-EPI 2020) 66.26 Glucose 141 H Calcium 8.4 L 02/20/23 12:15 WBC RBC Hgb Hct MCV MCH MCHC RDW Plt Count MPV Immature Gran % Neutrophils % Lymphocytes % Monocytes % Eosinophils % Basophils % Nucleated RBC % Absolute Neutrophils Absolute Lymphocytes Absolute Monocytes Absolute Eosinophils Absolute Basophils Sodium Potassium 3.9 D Chloride Carbon Dioxide Anion Gap BUN Creatinine Est GFR (CKD-EPI 2020) Glucose Calcium PAWSS Have you Been Recently Intoxicated or Drunk Within the Last 30 days?: No Have you Ever Experienced Previous Episodes of Alcohol Withdrawal?: Yes Have you ever Experienced Withdrawal Seizures?: No Have you ever Experienced Delirium Tremens(DT)s?: Yes Have you ever undergone Alcohol Rehabilitation Treatment (i.e, inpt ot outpatient treatment programs)?: Yes Have you ever Experienced Blackouts?: No Have you ever Combined Alcohol with other Downers within the last 90 days?: No Have you ever Combined Alcohol with any other Substance of Abuse during the last 90 days?: No Evidence of Increased Autonomic Activity (i.e. HR>120, tremor, sweating, agitation, nausea)?: Yes Result: 4 Time Spent with Patient Time Spent with Patient: 25-34 minutes Time was spent: preparing to see the patient(eg.review tests), obtaining and/or reviewing separately otained hiistory, ordering medications,tests, procedures, referring, communicating with other health career services coordinator and indepentently interpreting results
[2023-02-20] MEDS: Lidocaine 5% Patch 2 PATCH TP (20:44)
[2023-02-20] MEDS: Melatonin 3 MG TAB 6 MG PO (21:13)
[2023-02-20] MEDS: Mirtazapine 15 MG TAB 7.5 MG PO (21:13)
[2023-02-20] MEDS: LORazepam 0.5 MG TAB PO (21:13)
[2023-02-20] MEDS: Acetaminophen 325 MG TAB PO (23:24)
--- NOTE | 2023-02-21 | DI.MRI_ITS ---
Exam(s) MR PELVIS WO/W EXAM: MR PELVIS WO/W CLINICAL HISTORY: seoncd primary malig in pelvis TECHNIQUE: Multiplanar multisequence MRI of Pelvis was performed. CONTRAST MATERIAL: IV Contrast: 14 mL of Dotarem contrast administered. COMPARISON: CT CT ABDOMEN PELVIS WO from 02/16/2023 FINDINGS: Peritoneum: There is prominent pelvic ascites. Reproductive organs: Unremarkable as visualized. Urinary bladder: Underdistended. There is a Lopez catheter in place. Soft tissues: There is again seen a presacral mass measuring 10.6 x 7.6 x 5.7 cm. A large component of the mass is composed of fat. There is a solid component near the center which enhances and measur es up to 6.7 cm cranio caudally. Bones: No aggressive osseous lesions are seen. There is grade 1 anterolisthesis of L4 on L5. Lymph nodes: Unremarkable. Aorta: Unremarkable. IMPRESSION: 1. 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 Frontal consideration s include liposarcoma, extra adrenal myelolipoma or metastatic disease. 2. Ascites. DATA REPOSITORY:
[2023-02-21] MEDS: metroNIDAZOLE 500 MG/100 ML BAG 100 MG IVPB ×4 (02:18→20:16)
[2023-02-21 06:59] LABS: Abs Immature Grans 0.03 10^3/uL (0.0-0.06); Absolute Eosinophil Count 0.02 10^3/uL (0.0-0.7); Absolute Monocyte Count 0.36 10^3/uL (0.1-0.8); Absolute Neutrophil Count 1.94 10^3/uL (1.2-6.7); Eosinophils % 0.7; HCT 24.8 % (36.0-46.0); Immature Grans % 1.1; Lymphocytes % 17.5; MCH 31.9 pg (27.0-33.0); MCHC 32.3 % (32.0-36.0); MCV 99 fL (80-95); MPV 9.3 fL (8.0-11.0); Monocytes % 12.6; Neutrophils % 68.1; Platelet Count 156 10^3/uL (130-400); RBC 2.51 10^6/uL (3.93-5.22); RDW 19.5 % (11.7-14.6); RDW-SD 70.2 fL; WBC 2.85 10^3/uL (4.4-10.8)
[2023-02-21 07:00] VITALS: PULSE 83
[2023-02-21 07:21] VITALS: BP 132/80; PULSE 101; RESP 18; TEMP 36.7; O2SAT 96
[2023-02-21 07:22] LABS: ALT 12 U/L (14-59); AST 21 U/L (15-37); Albumin 2.6 g/dL (3.4-5.0); Alkaline Phosphatase 119 U/L (46-116); Anion Gap 9.3 mmol/L (3-11); BUN 8 mg/dL (7-18); Bilirubin, Total 0.8 mg/dL (0.2-1.0); CO2 23.7 mmol/L (21.0-32.0); Calcium 8.5 mg/dL (8.5-10.1); Chloride 104 mmol/L (98-107); Estimated GFR 58.39 (mL/min/1.73m2); Glucose 146 mg/dL (74-106); Magnesium 1.6 mg/dL (1.8-2.4); Potassium 3.2 mmol/L (3.5-5.1); Sodium 137 mmol/L (136-145); Total Protein 4.7 g/dL (6.4-8.2)
[2023-02-21] MEDS: Budesonide 0.5 MG/2 ML UPD VIAL IH (07:46)
--- NOTE | 2023-02-21 08:04 | W.PALPGNOTE ---
Date of service: 02/21/23 Time of Service: 08:04 Assessment and Plan Assessment and plan (1) Colitis due to Clostridium difficile: Status: Acute Assessment and plan: Julia's bowel movements have been slowing down. She has only had a very small bowel movement in the last 37 hours. She does feel better as far as her bowel movements (2) Acute on chronic anemia: Status: Acute Assessment and plan: Await today's CBC. Her hematocrit is drifting down again Addendum?her hematocrit is up a little from yesterday (3) Hypokalemia: Status: Acute Assessment and plan: Requiring high amounts of both potassium and magnesium. She now has a central line in. It might be worthwhile to try some of these p.o. since her bowel movements have been decreasing (4) Hypomagnesemia: Status: Acute (5) Lung cancer: Status: Chronic Assessment and plan: If she is expected to remain in the hospital through Tuesday, she will need to cancel her appointments for her lung cancer work-up and treatment. She also gets [facility] and the bobcat driver/labor will need to be canceled. (6) Palliative care patient: Status: Acute Assessment and plan: She looks considerably worse today than what she did the last time I saw her. It may be because it was early in the morning. She says that her abdomen continues to bother her although she had good bowel sounds and it was not tense. Doubtful that surgery would want to do a paracentesis. We again talked about the future. She has very little prognostic awareness. She again stated that she is not ready to and therefore not ready to stop treatments. I would recommend that as many wires, IV meds and telemetry be switched to p.o. meds that she can take at home. This will help to facilitate discharge. She will need as much magnesium and potassium since her stools have slowed down. Switching her to p.o. if possible would be good Discussion with Dr. Cassidy and staff Subjective Subjective Interval history since last seen: Leticia states that she feels worse today than she did the last couple of days. She has a lot of abdominal pain. She has only had 1 bowel movement in the last 2 days and that was only a very small 1. Overall she does not feel like she is making headway. She is very concerned about her possible lung cancer treatments that were supposed to start this week. Plan is to cancel these if she will remain in the hospital Exam Narrative Exam Narrative: She is lying in bed, her eyes are awake and alert. She is very pale looking. Her heart was regular. Lungs little air movement. Abdomen good bowel sounds in all 4 quadrants. She is full but not tense. As I am talking with her I can easily distract her and she does not grimace or state that her abdomen hurts. She does have compression devices around her legs. Mood depressed and anxious Objective Last Vital Signs Temp 98.1 F 02/21/23 07:21 Pulse 101 H 02/21/23 07:21 Resp 18 02/21/23 07:21 BP 132/80 02/21/23 07:21 Pulse Ox 96 02/21/23 07:21 Laboratory Results - last 24 hr 02/20/23 02/20/23 02/21/23 12:15 12:15 06:00 WBC 2.85 L RBC 2.51 L Hgb 7.4 L 8.0 L Hct 23.3 L 24.8 L MCV 99 H MCH 31.9 MCHC 32.3 RDW 19.5 H Plt Count 156 MPV 9.3 Immature Gran % 1.1 Neutrophils % 68.1 Lymphocytes % 17.5 Monocytes % 12.6 Eosinophils % 0.7 Basophils % 0.0 Nucleated RBC % 0.0 Absolute Neutrophils 1.94 Absolute Lymphocytes 0.50 L Absolute Monocytes 0.36 Absolute Eosinophils 0.02 Absolute Basophils 0.00 Sodium Potassium 3.9 D Chloride Carbon Dioxide Anion Gap BUN Creatinine Est GFR (CKD-EPI 2020) Glucose Calcium Magnesium Total Bilirubin AST ALT Alkaline Phosphatase Total Protein Albumin 02/21/23 06:00 WBC RBC Hgb Hct MCV MCH MCHC RDW Plt Count MPV Immature Gran % Neutrophils % Lymphocytes % Monocytes % Eosinophils % Basophils % Nucleated RBC % Absolute Neutrophils Absolute Lymphocytes Absolute Monocytes Absolute Eosinophils Absolute Basophils Sodium 137 Potassium 3.2 L Chloride 104 Carbon Dioxide 23.7 Anion Gap 9.3 BUN 8 Creatinine 1.0 Est GFR (CKD-EPI 2020) 58.39 Glucose 146 H Calcium 8.5 Magnesium 1.6 L Total Bilirubin 0.8 AST 21 ALT 12 L Alkaline Phosphatase 119 H Total Protein 4.7 L Albumin 2.6 L
[2023-02-21] MEDS: Folic Acid 1 MG TAB PO (09:22)
[2023-02-21] MEDS: Venlafaxine 75 MG CAPCR PO (09:22)
[2023-02-21] MEDS: amLODIPine 10 MG TAB PO (09:22)
[2023-02-21] MEDS: Cyanocobalamin 500 MCG TAB 1000 MCG PO (09:22)
[2023-02-21] MEDS: Mirabegron 50 MG TABCR PO (09:23)
[2023-02-21] MEDS: Metoprolol 50 MG TAB PO (09:23)
[2023-02-21] MEDS: valACYclovir 500 MG TAB PO (09:23)
[2023-02-21] MEDS: Potassium Chloride 20 MEQ TABCR PO (09:23)
[2023-02-21] MEDS: Sucralfate 1 GM TAB PO ×4 (09:23→21:47)
[2023-02-21] MEDS: QUEtiapine 25 MG TAB 12.5 MG PO ×2 (09:23→20:17)
[2023-02-21] MEDS: MAGNESIUM SULFATE 4 GM/100 ML BAG IVPB (09:24)
[2023-02-21] MEDS: Ondansetron O.D.T. 4 MG TABEF PO (09:29)
[2023-02-21] MEDS: Pantoprazole 40 MG VIAL 80 MG IVP ×2 (09:29→21:49)
[2023-02-21] MEDS: Refresh PLUS Eye Drops 0.4ml 1 EACH OU ×5 (11:58→23:40)
[2023-02-21] MEDS: Patch Removal 2 EACH TP (12:04)
[2023-02-21] MEDS: Scopolamine 1 MG/3 DAYS PATCH TD (12:05)
--- NOTE | 2023-02-21 13:51 | PDOC.CMPRO ---
Date of service: 02/21/23 Time of Service: 13:51 Care Management Progress Note Progress Note Text Progress Note Text: S:Leticia was lying in bed when CM met with her. She informed CM that she had an appointment at [facility] on Tuesday that needed to be cancelled. CM called the cancer center and cancelled the appointment as requested. CM also obtained the dates and times of Leticia's future appointments and provided her with the information. [facility] offered to help with scheduling transportation with [facility] but Leticia declined, stating she did not know how she would feel. Her next appointment is for February 25 at 12:15 pm. A:Leticia is a 77 year old woman admitted on 02/16/23 with a GI Bleed P:Anticipate Leticia will be discharged home when medically cleared by provider. She will follow up with her community providers and plan of care as directed. Leticia will transport home via [facility] private vehicle coordinated by [facility]. CM will continue to support Leticia and any discharge planning needs.
[2023-02-21] MEDS: LORazepam 1 MG TAB PO (14:10)
[2023-02-21 14:51] VITALS: BP 132/80; O2SAT 96
[2023-02-21] MEDS: Normal Saline Flush 10 ML SYR IVP (15:24)
[2023-02-21] MEDS: Gadoterate meglumine 20 ML SYRINGE 14 ML IVP (15:25)
--- NOTE | 2023-02-21 16:04 | PT.INNT ---
Date of service: 02/21/23 Time of Service: 14:10 PT Notes Visit Reasons: Symtomatic anemia of acute GI blood loss Patient refused treatment, stating that she has had a very bad day. Does not want therapist to check back later. Does want therapist to check back tomorrow, hopes to be feeling better then.
--- NOTE | 2023-02-21 17:24 | PGE_ITS ---
Date of Service Date of service: 02/21/23 Time of Service: 17:24 Assessment and Plan Assessment and plan (1) Acute on chronic anemia: Status: Acute Assessment and plan: She was reportedly hematest negative in the ED. S/p 1 unit pRBCS. Hgb:7.1 > 6.1 > 9.7 > 8.8 > 8.8>7.5>8.1>7.5 and 7.4 > 8.0 Treat for a presumed GI source with IV protonix + carafate. Advanced diet to full liquids. General surgery is consulted. Placed IJ d/t poor peripheral access. She does have a h/o cirrhosis, but does not appear to be having a variceal bleed at this time. (2) Abdominal pain: Status: Acute Assessment and plan: No pain today. Recent C.Diff. Stooling frequency has slowed considerably. She did not complete her course of antibiotics she was prescribed previously. Stool cx + for C.Diff. CT Abd/Pelvis w/o toxic megacolon. + stable appearing ascites and omental caking. Stable appearance of masses in presacral fat. + evidence of colitis. (3) C. difficile colitis: Status: Resolved Assessment and plan: As above. Now on oral vancomycin and IV flagyl. Stool volume diminishing. PRN lomotil. (4) Alcohol abuse: Status: Chronic Assessment and plan: Minimal withdrawal symptoms. Likely contributing to her esophagitis/gastritis as well as her poor nutritional state. Encourage ongoing cessation. (5) Portal hypertension: Status: Chronic Assessment and plan: at risk of portal gastropathy and varices. As above (6) Hypomagnesemia: Status: Acute Assessment and plan: Repleted in the ED. Conts to require intermittent repletion. Monitor. (7) DVT prophylaxis: Status: Acute Assessment and plan: SCDs Chemical DVT ppx is contraindicated in setting of suspected acute bleeding (8) Discharge planning issues: Status: Acute Assessment and plan: DNR/DNI Admitted to the ICU initially, now med-surg status. Subjective Subjective Patient reports: no new complaints, nausea and afebrile; denies vomiting or shortness of breath Interval history since last seen: She would like to see if some of her medications can be held or stopped d/t nausea that's a frequent occurrence. Exam Narrative Exam Narrative: General: Lying supine. NAD. Appears tired. Cardiovascular: RRR, no murmur Lungs: CTAB Gastrointestinal: soft, NT, + fluid wave. Extremities: no edema BLEs or calf pain. Objective Last Vital Signs Temp 36.7 C 02/21/23 07:21 Pulse 101 H 02/21/23 07:21 Resp 18 02/21/23 07:21 BP 132/80 02/21/23 14:51 Pulse Ox 96 02/21/23 14:51 Laboratory Results - last 24 hr 02/21/23 02/21/23 06:00 06:00 WBC 2.85 L RBC 2.51 L Hgb 8.0 L Hct 24.8 L MCV 99 H MCH 31.9 MCHC 32.3 RDW 19.5 H Plt Count 156 MPV 9.3 Immature Gran % 1.1 Neutrophils % 68.1 Lymphocytes % 17.5 Monocytes % 12.6 Eosinophils % 0.7 Basophils % 0.0 Nucleated RBC % 0.0 Absolute Neutrophils 1.94 Absolute Lymphocytes 0.50 L Absolute Monocytes 0.36 Absolute Eosinophils 0.02 Absolute Basophils 0.00 Sodium 137 Potassium 3.2 L Chloride 104 Carbon Dioxide 23.7 Anion Gap 9.3 BUN 8 Creatinine 1.0 Est GFR (CKD-EPI 2020) 58.39 Glucose 146 H Calcium 8.5 Magnesium 1.6 L Total Bilirubin 0.8 AST 21 ALT 12 L Alkaline Phosphatase 119 H Total Protein 4.7 L Albumin 2.6 L PAWSS Have you Been Recently Intoxicated or Drunk Within the Last 30 days?: No Have you Ever Experienced Previous Episodes of Alcohol Withdrawal?: Yes Have you ever Experienced Withdrawal Seizures?: No Have you ever Experienced Delirium Tremens(DT)s?: Yes Have you ever undergone Alcohol Rehabilitation Treatment (i.e, inpt ot outpatient treatment programs)?: Yes Have you ever Experienced Blackouts?: No Have you ever Combined Alcohol with other Downers within the last 90 days?: No Have you ever Combined Alcohol with any other Substance of Abuse during the last 90 days?: No Evidence of Increased Autonomic Activity (i.e. HR>120, tremor, sweating, agitation, nausea)?: Yes Result: 4 Time Spent with Patient Time Spent with Patient: 25-34 minutes Time was spent: preparing to see the patient(eg.review tests), obtaining and/or reviewing separately otained hiistory, ordering medications,tests, procedures, referring, communicating with other health assisted living care manager, indepentently interpreting results and counseling the patient
--- NOTE | 2023-02-21 17:58 | DI.VRAD_ITS ---
PROCEDURE INFORMATION: Exam: MR Pelvis Without and With Contrast Exam date and time: 02/21/2023 3:14 PM Age: 77 years old Clinical indication: Abnormal findings; Abnormal imaging test; Patient HX: Pre-sacral mass TECHNIQUE: Imaging protocol: Magnetic resonance imaging of the pelvis without and with contrast. Contrast material: DOTAREM; Contrast volume: 14 ml; Contrast route: INTRAVENOUS (IV); COMPARISON: CT ABDOMEN PELVIS WO 02/16/2023 4:42 PM FINDINGS: Intraperitoneal space: Prominent ascites noted throughout the abdomen and pelvis. Urinary bladder: A Lopez catheter is seen within the urinary bladder, which is decompressed. Reproductive: Unremarkable. Extraperitoneal space: There is a large presacral mass noted, which is predominantly well-circumscribed and containing macroscopic fat. The lesion measures approximately 10.6 x 7.6 x 5.7 cm. There are lobulated solid non-fat components in the center of the lesion, which are avidly enhancing and measure up to 6.7 cm in craniocaudal dimension. Bones/joints: No fracture. No evidence of sacral osseous involvement of presacral lesion. There is grade 1 anterolisthesis of L4 on L5. Soft tissues: No significant subcutaneous soft tissue abnormality. Kidneys and ureters: Perirenal fatty hypertrophy partially visualized. IMPRESSION: 1. Large 10.6 cm predominantly well-circumscribed fat-containing lesion with central enhancing nodular components seen in the presacral region. 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 Correlate with clinical findings and compare with remote prior imaging for any change. Sulfur colloid nuclear medicine scan may be considered for further differentiation. 2. Ascites again noted throughout the abdomen and pelvis. THIS REPORT CONTAINS FINDINGS THAT MAY BE CRITICAL TO PATIENT CARE. The findings were verbally communicated via telephone conference with Dr. Joy at 5:52 PM EDT on 02/21/2023. The findings were acknowledged and understood. Dictated and Authenticated by: Emani Liriano MD. Ordering:SID Robles MD
[2023-02-21 18:19] VITALS: BP 113/71; PULSE 87; RESP 16; TEMP 36.7; O2SAT 93
[2023-02-21] MEDS: Lidocaine 5% Patch 2 PATCH TP (20:17)
[2023-02-21] MEDS: Melatonin 3 MG TAB 6 MG PO (21:47)
[2023-02-21] MEDS: Mirtazapine 15 MG TAB 7.5 MG PO (21:48)
[2023-02-21] MEDS: LORazepam 0.5 MG TAB PO (21:48)
[2023-02-22] MEDS: metroNIDAZOLE 500 MG/100 ML BAG 100 MG IVPB ×4 (01:46→20:59)
[2023-02-22] MEDS: Acetaminophen 325 MG TAB PO ×3 (01:58→21:57)
[2023-02-22] MEDS: Mylanta Suspension 30 ML CUP PO (01:58)
[2023-02-22 04:07] VITALS: BP 118/71; PULSE 98; RESP 18; TEMP 36.1; O2SAT 92
[2023-02-22] MEDS: Refresh PLUS Eye Drops 0.4ml 1 EACH OU ×5 (04:28→23:52)
[2023-02-22] MEDS: Ondansetron O.D.T. 4 MG TABEF PO ×3 (04:28→21:57)
[2023-02-22 06:15] LABS: Abs Immature Grans 0.02 10^3/uL (0.0-0.06); Absolute Basophil Count 0.01 10^3/uL (0.0-0.2); Absolute Eosinophil Count 0.02 10^3/uL (0.0-0.7); Absolute Monocyte Count 0.44 10^3/uL (0.1-0.8); Absolute Neutrophil Count 2.31 10^3/uL (1.2-6.7); Basophils % 0.3; Eosinophils % 0.6; HGB 8.3 g/dL (11.2-15.7); Immature Grans % 0.6; Lymphocytes % 17.6; MCH 31.9 pg (27.0-33.0); MCHC 31.9 % (32.0-36.0); MCV 100 fL (80-95); MPV 9.3 fL (8.0-11.0); Monocytes % 12.9; Platelet Count 174 10^3/uL (130-400); RDW 19.6 % (11.7-14.6); RDW-SD 70.8 fL
[2023-02-22 06:27] LABS: Anion Gap 8.1 mmol/L (3-11); BUN 7 mg/dL (7-18); CO2 22.9 mmol/L (21.0-32.0); CREATININE 1.2 mg/dL (0.55-1.02); Chloride 104 mmol/L (98-107); Estimated GFR 46.91 (mL/min/1.73m2); Glucose 146 mg/dL (74-106); Magnesium 2.3 mg/dL (1.8-2.4); Potassium 3.4 mmol/L (3.5-5.1); Sodium 135 mmol/L (136-145)
[2023-02-22 07:20] VITALS: BP 116/78; PULSE 88; RESP 18; TEMP 36.6; O2SAT 94
[2023-02-22] MEDS: Budesonide 0.5 MG/2 ML UPD VIAL IH (08:29)
[2023-02-22 08:41] VITALS: RESP 20; RESP 4
[2023-02-22] MEDS: Albuterol/Ipratropium 3 ML UPD VIAL IH (08:41)
--- NOTE | 2023-02-22 08:51 | PDOC.CMPRO ---
Date of service: 02/22/23 Time of Service: 08:52 Care Management Progress Note Progress Note Text Progress Note Text: S:Leticia was lying in bed when CM met with her.? She was complaining of nausea and increased abdominal pain and requested medication for it. Additional imaging has been ordered to rule out an obstruction. Leticia remains afebrile and her vital signs are stable. A:Leticia is a 77 year old woman admitted on 02/16/23 with a GI Bleed P:Anticipate Leticia will be discharged home when medically cleared by provider. She will follow up with her community providers and plan of care as directed. Leticia will transport home via [facility] private vehicle coordinated by [facility]. CM will continue to support Leticia and any discharge planning needs.
[2023-02-22] MEDS: Sucralfate 1 GM TAB PO ×3 (09:43→21:58)
[2023-02-22] MEDS: Folic Acid 1 MG TAB PO (09:43)
[2023-02-22] MEDS: valACYclovir 500 MG TAB PO (09:43)
[2023-02-22] MEDS: QUEtiapine 25 MG TAB 12.5 MG PO ×2 (09:43→20:19)
[2023-02-22] MEDS: Mirabegron 50 MG TABCR PO (09:44)
[2023-02-22] MEDS: Venlafaxine 75 MG CAPCR PO (09:44)
[2023-02-22] MEDS: Metoprolol 50 MG TAB PO (09:44)
[2023-02-22] MEDS: Normal Saline Flush 10 ML SYR IVP ×3 (09:44→11:20)
[2023-02-22] MEDS: Normal Saline 500 ML 100 ML IV (09:50)
[2023-02-22] MEDS: Patch Removal 2 EACH TP (10:01)
[2023-02-22] MEDS: Pantoprazole 40 MG VIAL 80 MG IVP ×2 (10:18→21:54)
[2023-02-22] MEDS: Loperamide 2 MG CAP PO (10:19)
--- NOTE | 2023-02-22 10:31 | PT.INNT ---
Date of service: 02/22/23 Time of Service: 10:25 PT Notes Visit Reasons: Symtomatic anemia of acute GI blood loss Patient refuses therapy, states she is having difficulty breathing right now. Agreeable to attempt supine exercises after lunch. RN in room at time of conversation.
[2023-02-22] MEDS: Scopolamine 1 MG/3 DAYS PATCH TD ×2 (14:00→18:15)
[2023-02-22 15:59] VITALS: BP 103/66; PULSE 78; RESP 16; TEMP 36.3; O2SAT 93
--- NOTE | 2023-02-22 16:30 | DI.RAD_ITS ---
Exam(s) XR ABDOMEN FLAT UPRIGHT EXAM: 2D digital imaging was performed. CLINICAL HISTORY: abdominal pain, C diff colitis. COMPARISON: CT CT ABDOMEN PELVIS W from 02/23/2023 TECHNIQUE: Supine and upright views of the abdomen was performed. Three images were obtained. FINDINGS: LUNG BASES: The tip of the central venous catheter is in the right atrium. BOWEL GAS PATTERN: Nonobstructive bowel gas pattern. No definite evidence of portal venous gas or pn eumatosis. FREE AIR: None. CALCIFICATIONS: No radiopaque calcifications. OSSEOUS STRUCTURES: Osteopenia degenerative changes are seen in the lumbar spine. Chronic bilateral rib fractures are noted. OTHER FINDINGS: There is overall in increased opacity of the abdomen suggesting ascites. IMPRESSION: Findings suggestive abdominal ascites. DATA REPOSITORY: RADIATION DOSE DELIVERED:
--- NOTE | 2023-02-22 16:32 | W.PM.PROGNOT ---
Date of Service Date of service: 02/22/23 Time of Service: 16:33 Assessment and Plan Assessment and plan (1) Abdominal pain: Status: Acute Assessment and plan: Increased abdominal pain with nausea but no vomiting today. Abdominal exam is somewhat concerning. Although initial CT scan of the abdomen pelvis was without toxic megacolon and demonstrated stable ascites and omental caking. I will get a repeat abdominal x-ray flatplate and upright to rule out obstruction. We may need to repeat her CT scan. Recent C.Diff. Stooling frequency has slowed considerably. She did not complete her course of antibiotics she was prescribed previously. Stool cx + for C.Diff. Patient remains on a full liquid diet. I was considering advancing her diet but given her nausea and abdominal pain we will hold off pending her x-rays. Staff and talked about possible discharge today however given that she was only on a liquid diet and now she has had increased nausea and abdominal pain discharge plans been put on hold. Professional time spent interviewing and examining patient, discussion of goals of care with hospital team (care management, nursing and consulting professionals) was 30 minutes. (2) C. difficile colitis: Status: Resolved Assessment and plan: Continue IV Flagyl and oral vancomycin and probiotics. Upon discharge patient should go on a prolonged taper of oral vancomycin. (3) Acute on chronic anemia: Status: Acute Assessment and plan: She was reportedly hematest negative in the ED. S/p 1 unit pRBCS. Hgb:7.1 > 6.1 > 9.7 > 8.8 > 8.8>7.5>8.1>7.5 and 7.4 > 8.0 >8.3 Treat for a presumed GI source with IV protonix + carafate. (I would consider switching her to oral Protonix if she were tolerating p.o. better.) Advanced diet to full liquids. General surgery is consulted. Placed IJ d/t poor peripheral access. She does have a h/o cirrhosis, but does not appear to be having a variceal bleed at this time. (4) Portal hypertension: Status: Chronic Assessment and plan: at risk of portal gastropathy and varices. As above (5) Hypomagnesemia: Status: Acute Assessment and plan: Repleted in the ED. Conts to require intermittent repletion. Monitor. Remains repleted at 2.3 today. (6) Alcohol abuse: Status: Chronic Assessment and plan: No evidence for acute alcohol withdrawal Likely contributing to her esophagitis/gastritis as well as her poor nutritional state. Encourage ongoing cessation. (7) DVT prophylaxis: Status: Acute Assessment and plan: SCDs Chemical DVT ppx is contraindicated in setting of suspected acute bleeding (8) Discharge planning issues: Status: Acute Assessment and plan: DNR/DNI Admitted to the ICU initially, now med-surg status, dc home w/ HH services when medically stable. Need her to be tolerating solid diet w/out nausea and abdominal pains. Subjective Subjective Interval history since last seen: Patient complains of increased nausea but no vomiting , however she has increased abdominal pain. She still is forming stools, more formed, she remains on flagyl iv and vancomycin oral for C. difficile colitis Exam Narrative Exam Narrative: Julia is lying in bed with the lights off watching TV. She is alert and oriented. Lungs are clear to auscultation Heart is regular rate and rhythm Abdomen is distended firm but not hard she has a positive fluid wave consistent with ascites. She has hypoactive bowel sounds with a few bowel sounds are present sound high-pitched and scattered she has some voluntary guarding but no rebound tenderness. Lower extremities without peripheral cyanosis or edema Objective Last Vital Signs Temp 36.3 C L 02/22/23 15:59 Pulse 78 02/22/23 15:59 Resp 16 02/22/23 15:59 BP 103/66 02/22/23 15:59 Pulse Ox 93 02/22/23 15:59 Laboratory Results - last 24 hr 02/22/23 02/22/23 05:30 05:30 WBC 3.40 L RBC 2.60 L Hgb 8.3 L Hct 26.0 L MCV 100 H MCH 31.9 MCHC 31.9 L RDW 19.6 H Plt Count 174 MPV 9.3 Immature Gran % 0.6 Neutrophils % 68.0 Lymphocytes % 17.6 Monocytes % 12.9 Eosinophils % 0.6 Basophils % 0.3 Nucleated RBC % 0.0 Absolute Neutrophils 2.31 Absolute Lymphocytes 0.60 L Absolute Monocytes 0.44 Absolute Eosinophils 0.02 Absolute Basophils 0.01 Sodium 135 L Potassium 3.4 L Chloride 104 Carbon Dioxide 22.9 Anion Gap 8.1 BUN 7 Creatinine 1.2 H Est GFR (CKD-EPI 2021) 46.91 Glucose 146 H Calcium 9.0 Magnesium 2.3 PAWSS Have you Been Recently Intoxicated or Drunk Within the Last 30 days?: No Have you Ever Experienced Previous Episodes of Alcohol Withdrawal?: Yes Have you ever Experienced Withdrawal Seizures?: No Have you ever Experienced Delirium Tremens(DT)s?: Yes Have you ever undergone Alcohol Rehabilitation Treatment (i.e, inpt ot outpatient treatment programs)?: Yes Have you ever Experienced Blackouts?: No Have you ever Combined Alcohol with other Downers within the last 90 days?: No Have you ever Combined Alcohol with any other Substance of Abuse during the last 90 days?: No Evidence of Increased Autonomic Activity (i.e. HR>120, tremor, sweating, agitation, nausea)?: Yes Result: 4 Time Spent with Patient Time Spent with Patient: 25-34 minutes Time was spent: preparing to see the patient(eg.review tests), ordering medications,tests, procedures, indepentently interpreting results, counseling the patient and care coordination
[2023-02-22] MEDS: POTASSIUM CHLORIDE 10 MEQ/100 ML BAG 100 MEQ IVPB ×3 (18:16→21:00)
--- NOTE | 2023-02-22 18:56 | DI.VRAD_ITS ---
PROCEDURE INFORMATION: Exam: XR Abdomen Exam date and time: 02/22/2023 5:39 PM Age: 77 years old Clinical indication: Other: Abdominal pain, c diff colitis TECHNIQUE: Imaging protocol: Radiologic exam of the abdomen. Views: 2 Views. Upright and supine views. COMPARISON: CT ABDOMEN PELVIS WO 02/16/2023 4:42 PM FINDINGS: Tubes, catheters and devices: Central venous catheter in place with its tip in the right atrium. Lungs: Minor atelectasis in the peripheral left lung base unchanged. Gastrointestinal tract: Nonobstructive bowel gas pattern. No evidence of pneumatosis or portal gas. Intraperitoneal space: No free air is evident. Right upper quadrant surgical clips suggest prior cholecystectomy. Vasculature: Small intrapelvic phleboliths incidentally noted. Bones/joints: Osteopenia. No fracture. SI joints and pubic symphysis are unremarkable. Hip joint spaces are well aligned and well-maintained. Moderate lumbar spondylosis. Multiple chronic bilateral rib fractures again noted. Mild leftward convexity lumbar scoliosis. Soft tissues: No gross soft tissue abnormalities. IMPRESSION: No acute findings. Dictated and Authenticated by: Clarence Phipps MD. Ordering:[facility] Hayden Pascal MD
[2023-02-22] MEDS: Melatonin 3 MG TAB 6 MG PO (21:56)
[2023-02-22] MEDS: Mirtazapine 15 MG TAB 7.5 MG PO (21:56)
[2023-02-22] MEDS: LORazepam 0.5 MG TAB PO (21:56)
[2023-02-22] MEDS: Lidocaine 5% Patch 2 PATCH TP (22:02)
[2023-02-22 23:53] VITALS: BP 108/70; PULSE 82; RESP 18; TEMP 36.7; O2SAT 97
[2023-02-23] MEDS: metroNIDAZOLE 500 MG/100 ML BAG 100 MG IVPB ×4 (02:19→20:44)
[2023-02-23] MEDS: Ondansetron O.D.T. 4 MG TABEF PO ×3 (04:05→20:48)
[2023-02-23 06:57] LABS: Abs Immature Grans 0.02 10^3/uL (0.0-0.06); Absolute Basophil Count 0.01 10^3/uL (0.0-0.2); Absolute Eosinophil Count 0.01 10^3/uL (0.0-0.7); Absolute Lymphocyte Count 0.42 10^3/uL (1.2-3.4); Absolute Monocyte Count 0.33 10^3/uL (0.1-0.8); Absolute Neutrophil Count 1.64 10^3/uL (1.2-6.7); Basophils % 0.4; Eosinophils % 0.4; HCT 25.5 % (36.0-46.0); HGB 8.1 g/dL (11.2-15.7); Immature Grans % 0.8; Lymphocytes % 17.3; MCH 32.3 pg (27.0-33.0); MCHC 31.8 % (32.0-36.0); MCV 102 fL (80-95); MPV 9.4 fL (8.0-11.0); Monocytes % 13.6; Neutrophils % 67.5; Platelet Count 169 10^3/uL (130-400); RBC 2.51 10^6/uL (3.93-5.22); RDW 19.8 % (11.7-14.6); RDW-SD 73.6 fL; WBC 2.43 10^3/uL (4.4-10.8)
[2023-02-23 07:03] VITALS: BP 132/73; PULSE 99; TEMP 35.9; O2SAT 91
[2023-02-23 07:29] VITALS: PULSE 100; RESP 1; RESP 24; RESP 5; O2SAT 96
[2023-02-23] MEDS: Albuterol/Ipratropium 3 ML UPD VIAL IH (07:29)
[2023-02-23] MEDS: Budesonide 0.5 MG/2 ML UPD VIAL IH (07:35)
[2023-02-23 07:41] VITALS: PULSE 100; RESP 1; RESP 24; RESP 4; RESP 5; O2SAT 97
[2023-02-23 07:53] LABS: ALT 13 U/L (14-59); Albumin 2.5 g/dL (3.4-5.0); Alkaline Phosphatase 125 U/L (46-116); Anion Gap 10.5 mmol/L (3-11); BUN 9 mg/dL (7-18); Bilirubin, Total 0.7 mg/dL (0.2-1.0); CO2 21.5 mmol/L (21.0-32.0); CREATININE 1.1 mg/dL (0.55-1.02); Chloride 107 mmol/L (98-107); Estimated GFR 52.08 (mL/min/1.73m2); Glucose 140 mg/dL (74-106); Sodium 139 mmol/L (136-145); Total Protein 4.8 g/dL (6.4-8.2)
[2023-02-23] MEDS: Refresh PLUS Eye Drops 0.4ml 1 EACH OU ×3 (08:05→20:47)
[2023-02-23] MEDS: Normal Saline Flush 10 ML SYR IVP ×2 (08:09→15:04)
[2023-02-23] MEDS: Fluticasone NASAL SPRAY 16 GM BTL NS (08:09)
[2023-02-23] MEDS: Pantoprazole 40 MG VIAL 80 MG IVP (08:10)
[2023-02-23 08:14] LABS: AST 15 U/L (15-37)
--- NOTE | 2023-02-23 08:37 | PDOC.CMPRO ---
Date of service: 02/23/23 Time of Service: 08:37 Care Management Progress Note Progress Note Text Progress Note Text: S:Leticia was lying in bed when CM met with her.? She was complaining of nausea and increased abdominal pain and requested medication for it. Additional imaging has been ordered to rule out an obstruction. Leticia remains afebrile and her vital signs are stable. Leticia's ammonia levels are not elevated and a CT scan of her head did not reveal any new pathology. She is lethargic but arousable and answers questions appropriately. At times she seems a bit confused, but it may be because she is speaking very softly and may not be clearly understood. A:Leticia is a 77 year old woman admitted on 02/16/23 with a GI Bleed P:Anticipate Leticia will be discharged home when medically cleared by provider. She will follow up with her community providers and plan of care as directed. Leticia will transport home via [facility] private vehicle coordinated by [facility]. CM will continue to support Leticia and any discharge planning needs.
[2023-02-23] MEDS: ACETAMINOPHEN 1,000 MG/100 ML BTL 400 MG IVPB (12:16)
[2023-02-23 12:54] LABS: Ammonia 21 umol/L (11-32)
[2023-02-23 12:56] LABS: BE (Venous) -5 mmol/L (-2-3); HCO3 (Venous) 21 mmol/L (23-28); O2 Sat (Venous) 84 %; TCO2 (Venous) 20 mmol/L (24-29); pCO2 (Venous) 37 mmHg (41-51); pH (Venous) 7.36 (7.31-7.41); pO2 (Venous) 50 mmHg
--- NOTE | 2023-02-23 13:06 | DI.CT_ITS ---
Exam(s) CT HEAD - STROKE PROTOCOL EXAM: CT HEAD - STROKE PROTOCOL CLINICAL HISTORY: acute confusion. TECHNIQUE: Imaging Protocol: Axial computed tomography images with coronal and sagittal reformatted images were created and reviewed COMPARISON: CT CT HEAD CERVICAL SPINE WO from 11/25/2022 FINDINGS: Ventricles and Extra axial spaces: Normal in size and morphology for the patient's age. Hemorrhage: None. Cerebral parenchyma: There is no evidence of an acute territorial infarct. There are areas of decrea sed attenuation in the white matter most consistent with small vessel ischemic disease. Midline shift: None. Brainstem/Cerebellum: Normal. Calvarium: Normal. Visualized Paranasal sinuses/Mastoids: Clear. Soft Tissues: Unremarkable. IMPRESSION: No acute intracranial process. RADIATION DOSE DELIVERED: 1,519.53mGy.cm Total DLP DATA REPOSITORY: All CT scans at this facility are submitted to the National Radiology Data Registry (NRDR) Dose Index Registry (DIR) with the [employer] (ACR). RADIATION OPTIMIZATION: All CT scans at this facility use at least one of these dose optimization te chniques: automated exposure control; mA and/or kV adjustment per patient size (includes targeted exa ms where dose is matched to clinical indication); or iterative reconstruction.
[2023-02-23] MEDS: Metoclopramide 10 MG/2 ML VIAL IVP (13:18)
--- NOTE | 2023-02-23 14:18 | W.PM.PROGNOT ---
Date of Service Date of service: 02/23/23 Time of Service: 14:18 Assessment and Plan Assessment and plan (1) Abdominal pain: Status: Acute Assessment and plan: KUB yesterday showed no small bowel obstruction. We will proceed with CT scan of abdomen today to rule out toxic megacolon. Otherwise continue treatment for C. difficile colitis with IV Flagyl and oral vancomycin. Professional time spent interviewing and examining patient, discussion of goals of care with hospital team (care management, nursing and consulting professionals) was 45 minutes. (2) C. difficile colitis: Status: Resolved Assessment and plan: Continue IV Flagyl and oral vancomycin and probiotics. Upon discharge patient should go on a prolonged taper of oral vancomycin. Continue full liquid diet. (3) Acute on chronic anemia: Status: Acute Assessment and plan: Stable chronic macrocytic anemia secondary to alcoholism. Hemoglobin 8.1 g hematocrit 25% MCV 102. Continue to monitor no evidence of acute GI bleeding. Does have a history of known gastritis and duodenitis and esophagitis from her alcoholism. Patient is on high-dose pantoprazole IV will switch her back to her routine dose of 40 mg orally twice a day as she is taking other oral medicines continue sucralfate 1 g before meals and at bedtime. (4) Portal hypertension: Status: Chronic Assessment and plan: at risk of portal gastropathy and varices. As above (5) Hypomagnesemia: Status: Acute Assessment and plan: Repleted in the ED. Conts to require intermittent repletion. Continue to monitor (6) Alcohol abuse: Status: Chronic Assessment and plan: No evidence for acute alcohol withdrawal Likely contributing to her esophagitis/gastritis as well as her poor nutritional state. Encourage ongoing cessation. (7) DVT prophylaxis: Status: Acute Assessment and plan: SCDs Chemical DVT ppx is contraindicated in setting of suspected acute bleeding (8) Discharge planning issues: Status: Acute Assessment and plan: DNR/DNI Discharge home once she is medically stable and tolerating soft foods and having normal bowel movements. Subjective Subjective Interval history since last seen: Leticia was very lethargic this moring, not eating well, nauseated. It does not appear that she has received any narcotics. She has had antiemetics but otherwise she is on her same dose of Seroquel, Buspar, Mirtazapine and her nightly dose of lorazepam. I checked ammonia level, VBG and she is not hyperammonemic and not hypercapneic. She is afebrile. CT head w/out contrast was negative for acute changes. I will put her lorazepam on hold. decrease her Seroquel to at night time only. If she is not improving then consider MRI brain. She did wake up for me and although she seemed groggy, her speech was clear. Exam Narrative Exam Narrative: Leticia was lethargic but she was awakened easily by my calling her name. First she was very groggy but then she became more responsive for me and for physical medicine specialist. Her speech is clear not dysarthric. She has no facial asymmetry. She moves both arms and legs fairly well without noticeable paraparesis. Lungs are clear to auscultation Heart is regular rate and rhythm Abdomen is still distended she has bowel sounds present she has diffuse abdominal tenderness but no rebound tenderness. Extremities without peripheral cyanosis or edema Objective Last Vital Signs Temp 35.9 C L 02/23/23 07:03 Pulse 100 H 02/23/23 07:41 Resp 24 02/23/23 07:41 BP 132/73 02/23/23 07:03 Pulse Ox 97 02/23/23 07:41 Laboratory Results - last 24 hr 02/23/23 02/23/23 02/23/23 06:18 06:18 12:20 WBC 2.43 L RBC 2.51 L Hgb 8.1 L Hct 25.5 L MCV 102 H MCH 32.3 MCHC 31.8 L RDW 19.8 H Plt Count 169 MPV 9.4 Immature Gran % 0.8 Neutrophils % 67.5 Lymphocytes % 17.3 Monocytes % 13.6 Eosinophils % 0.4 Basophils % 0.4 Nucleated RBC % 0.0 Absolute Neutrophils 1.64 Absolute Lymphocytes 0.42 L Absolute Monocytes 0.33 Absolute Eosinophils 0.01 Absolute Basophils 0.01 VBG pH VBG pCO2 VBG pO2 VBG HCO3 VBG Total CO2 VBG O2 Saturation VBG Base Excess Sodium 139 Potassium 4.0 Chloride 107 Carbon Dioxide 21.5 Anion Gap 10.5 BUN 9 Creatinine 1.1 H Est GFR (CKD-EPI 2020) 52.08 Glucose 140 H Calcium 9.0 Total Bilirubin 0.7 AST 15 ALT 13 L Alkaline Phosphatase 125 H Ammonia 21 Total Protein 4.8 L Albumin 2.5 L 02/23/23 12:20 WBC RBC Hgb Hct MCV MCH MCHC RDW Plt Count MPV Immature Gran % Neutrophils % Lymphocytes % Monocytes % Eosinophils % Basophils % Nucleated RBC % Absolute Neutrophils Absolute Lymphocytes Absolute Monocytes Absolute Eosinophils Absolute Basophils VBG pH 7.36 VBG pCO2 37 L VBG pO2 50 VBG HCO3 21 L VBG Total CO2 20 L VBG O2 Saturation 84 VBG Base Excess -5 L Sodium Potassium Chloride Carbon Dioxide Anion Gap BUN Creatinine Est GFR (CKD-EPI 2020) Glucose Calcium Total Bilirubin AST ALT Alkaline Phosphatase Ammonia Total Protein Albumin PAWSS Have you Been Recently Intoxicated or Drunk Within the Last 30 days?: No Have you Ever Experienced Previous Episodes of Alcohol Withdrawal?: Yes Have you ever Experienced Withdrawal Seizures?: No Have you ever Experienced Delirium Tremens(DT)s?: Yes Have you ever undergone Alcohol Rehabilitation Treatment (i.e, inpt ot outpatient treatment programs)?: Yes Have you ever Experienced Blackouts?: No Have you ever Combined Alcohol with other Downers within the last 90 days?: No Have you ever Combined Alcohol with any other Substance of Abuse during the last 90 days?: No Evidence of Increased Autonomic Activity (i.e. HR>120, tremor, sweating, agitation, nausea)?: Yes Result: 4 Time Spent with Patient Time Spent with Patient: 35-49 minutes Time was spent: preparing to see the patient(eg.review tests), ordering medications,tests, procedures, referring, communicating with other health career representative, indepentently interpreting results, counseling the patient and care coordination
--- NOTE | 2023-02-23 14:38 | PT.INTREAT ---
Date of service: 02/23/23 Time of Service: 14:20 PT Notes Visit Reasons: Symtomatic anemia of acute GI blood loss Inpatient Physical Therapy Treatment Note [facility] Date: 02/23/23 PRECAUTIONS: Fall, standard, enteric contact, activity as tolerated SUBJECTIVE: This therapist arrived at the same time as Dr Blake. Patient supine in bed, somewhat disoriented (states wrong year, right month). Agreeable to therapy. Dr Blake expresses concern over patient's alertness, mentation. OBJECTIVE: PAIN: Patient complains of stomach pain, states that it's about the same as before. THEREX: Patient participates in supine, bed level exercises with moderate verbal cues to remain engaged, including 2x5 heel slides, 1x5 cross body reaching, 1x5 assisted straight leg raises. Patient dozes off several times during session. ASSESSMENT: Patient tolerates therapy well, resting in bed at end of session with call bailey clipped to blanket and in easy reach. PLAN: Continue strengthening per plan of care as patient is able. TREATMENT CODE/TIME: 08034 Ther Ex 14 minutes beginning at 14:20
[2023-02-23 14:41] VITALS: BP 131/74; PULSE 85; TEMP 36; O2SAT 96
[2023-02-23] MEDS: Breeza Beverage 473 ML BTL 946 ML PO (14:57)
[2023-02-23] MEDS: Omnipaque 350 MG/ML 100 ML BTL IJ (15:00)
[2023-02-23] MEDS: Omnipaque 350 MG/ML 50 ML BTL PO (15:03)
--- NOTE | 2023-02-23 15:41 | DI.CT_ITS ---
Exam(s) CT ABDOMEN PELVIS W EXAM: CT ABDOMEN PELVIS W CLINICAL HISTORY: abdominal pain TECHNIQUE: Imaging Protocol: Axial computed tomography images with coronal and sagittal reformatted images were created and reviewed CONTRAST MATERIAL: Intravenous: Omnipaque 350 Contrast volume:100 mL Oral: yes / no COMPARISON: CT CT ABDOMEN PELVIS W from 02/05/[address] ABDOMEN PELVIS WO from 02/16/2023 FINDINGS: ABDOMEN: Lung Bases: There are small bilateral pleural effusions and subjacent infiltrates. Cardiomegaly is p resent. Coronary artery calcifications are present. There is a small hiatal hernia. Liver: The liver has a nodular appearance suggesting hepatic cirrhosis. No measurable mass. Portal, Superior Mesenteric, and Splenic Veins: Unremarkable. Gallbladder and Biliary Tract: Cholecystectomy. No intrahepatic biliary ductal dilatation. Pancreas: Normal density, no abnormal calcifications or inflammatory process. Spleen: Normal. Adrenals: Stable nodularity of the left adrenal gland. The right adrenal gland is unremarkable. Kidneys: Normal size, contour and axis. No radiodense stones or obstructive uropathy. There are bilat eral renal cysts. There also tiny hypodensities in the kidneys which are too small for further juventino cterization. Abdominal Aorta: Abdominal portion non-dilated. Atherosclerosis. Bowel: There is bowel wall thickening seen in the ascending colon and proximal transverse colon. The re is also bowel wall thickening seen in the distal transverse colon. There is no evidence of bowel obstruction. No evidence of appendicitis. There is no evidence of pneumatosis or portal venous gas. Peritoneal Cavity: Large amount of abdominal pelvic ascites is present. No free air. Lymph Nodes: Within normal limits. Bones: No acute abnormality. Chronic rib fractures. Soft Tissues: There is anasarca. There is a fluid containing inguinal left inguinal hernia. The pre sacral mass is stable. PELVIS: Bladder: Lopez catheter is seen in a decompressed urinary bladder. Reproductive Organs: Unremarkable as visualized. Lymph Nodes: Within normal limits. Bones: Within normal limits for the patient's age. IMPRESSION: 1. Significant increase in size of the abdominal pelvic ascites. 2. Bowel wall thickening seen in the colon which may represent colitis or secondary to abdominal asci taya. 3. Stable presacral mass. 4. Bilateral pleural effusions and subjacent infiltrates. RADIATION DOSE DELIVERED: 1,015.99mGy.cm Total DLP DATA REPOSITORY: All CT scans at this facility are submitted to the National Radiology Data Registry (NRDR) Dose Index Registry (DIR) with the [employer] (ACR). RADIATION OPTIMIZATION: All CT scans at this facility use at least one of these dose optimization te chniques: automated exposure control; mA and/or kV adjustment per patient size (includes targeted exa ms where dose is matched to clinical indication); or iterative reconstruction.
--- NOTE | 2023-02-23 17:23 | PHA.ACLINAW ---
Renal Dosing Renal Dosing: BUN 9 mg/dL (7-18) 02/23/23 06:18 Creatinine 1.1 mg/dL (0.55-1.02) H 02/23/23 06:18 Anticoagulation Anticoagulation: Hgb 8.1 g/dL (11.2-15.7) L 02/23/23 06:18 Hct 25.5 % (36.0-46.0) L 02/23/23 06:18 Plt Count 169 10^3/uL (130-400) 02/23/23 06:18 INR 1.2 (0.9-1.1) H 02/16/23 10:38 Creatinine 1.1 mg/dL (0.55-1.02) H 02/23/23 06:18 DM Control DM Control: Glucose 140 mg/dL (74-106) H 02/23/23 06:18 Pharmacy Antibiotic Review Pharmacy Antibiotic Activity: 48 hour review and Antibiotic de-escalation Comments: metronidazole and po vanco continue for c. diff, will require a prolonged taper upon DC, probiotic added to regimen today
--- NOTE | 2023-02-23 17:40 | DI.VRAD_ITS ---
PROCEDURE INFORMATION: Exam: CT Abdomen And Pelvis With Contrast Exam date and time: 02/23/2023 3:01 PM Age: 77 years old Clinical indication: Abdominal pain; Generalized TECHNIQUE: Imaging protocol: Computed tomography of the abdomen and pelvis with contrast. Radiation optimization: All CT scans at this facility use at least one of these dose optimization techniques: automated exposure control; mA and/or kV adjustment per patient size (includes targeted exams where dose is matched to clinical indication); or iterative reconstruction. Contrast material: OMNI 350; Contrast volume: 100 ml; Contrast route: INTRAVENOUS (IV); Other contrast: Oral, Omni 350/Breeza, 473; COMPARISON: MR PELVIS WO/W 02/21/2023 3:14 PM FINDINGS: Lungs: Dependent atelectasis is seen at the lung bases. Pleural spaces: Mild pleural thickening noted at the bilateral bases. Liver: There is a shrunken appearance of the liver with lobulated borders, suggestive of cirrhosis. No hepatic mass seen. Gallbladder and bile ducts: The patient is status post cholecystectomy. Pancreas: The pancreas appears slightly atrophic. No pancreatic duct dilation. Spleen: The spleen is unremarkable. No splenomegaly. Adrenal glands: The adrenal glands are unremarkable. No defined mass. Kidneys and ureters: Bilateral simple appearing renal cysts are noted, measuring up to 2.9 cm on the right and 1.3 cm the left. There are small bilateral renal hypodensities, which are too small to characterize but may represent cysts. No hydronephrosis. Stomach and bowel: No bowel obstruction. Mucosal thickening noted in the ascending colon possibly reactive to adjacent ascites. Appendix: No evidence of appendicitis. Intraperitoneal space: There is diffuse ascites noted throughout the abdomen and pelvis, increased in volume since the prior examination. The AP diameter of the abdomen has increased since the prior examination measuring approximately 18 cm, previously 12.5 cm (image 63, series 10). Vasculature: No abdominal aortic aneurysm. Lymph nodes: No enlarged lymph nodes. Urinary bladder: A Lopez catheter is noted in a decompressed urinary bladder. Reproductive: Unremarkable as visualized. Bones/joints: No acute fracture. Healed rib fractures are noted bilaterally. Multilevel degenerative disc disease and bilateral facet arthropathy noted with grade 1 anterolisthesis of L4-L5. Soft tissues: There is redemonstration of large heterogeneous mass in the presacral region containing fat and nodular components measuring up to 10 cm (image 69, series 5). IMPRESSION: 1. Extensive ascites in the abdomen and pelvis, progressed since the prior examination with increased abdominal girth noted. 2. Findings suggestive of hepatic cirrhosis. 3. Bowel wall thickening in the ascending colon, possibly reactive bowel wall edema from adjacent ascites or secondary to colitis. Clinical correlation recommended. 4. Large heterogeneous presacral mass again noted, better evaluated on recent MRI. Dictated and Authenticated by: Emani Liriano MD. Ordering:.[facility] Hayden Pascal MD
--- NOTE | 2023-02-23 18:49 | PT.INTREAT ---
Date of service: 02/23/23 Time of Service: 09:56 PT Notes Visit Reasons: Symtomatic anemia of acute GI blood loss Inpatient Physical Therapy Treatment Note [facility] Date: 02/23/2023 SUBJECTIVE: Fatigued but with encouragement, was agreeable to getting out of bed and doing a few steps. Knows that she needs to be a lot better to manage at home alone. Willing to slowly go back to moving as long as her pain is managed. OBJECTIVE: ? ? General Observation: Resting in bed. IV access in R UE. PAIN: Reports abdominal discomfort buts is able to work through pain for sit>supine and sit>stand. ? BED MOBILITY/TRANSFERS Supine to sit minimal assist Sit to stand contact guard assist Bed to chair contact guard assist ? GAIT? Device: FWW Weight bearing: Full Assist: CGA Distance: 5-6 steps from edge of bed to chair Deviation: Slowed violeta. Minimal abdominal discomfort. Unwilling to do anymore, complained of fatigue. ? ASSESSMENT:? Requires extensive encouragement to participate in session. Does not want to go to a SNF. Appears that she can do more than what she currently is willing to do. CM Lien aware of patient status and motivation level. PLAN: Progress functional mobility level, strength, and balance in anticipation of discharge to home with needed services. TREATMENT CODE/TIME: 70376 x 19 minutes beginning at 9:56 AM.
[2023-02-23] MEDS: Lidocaine 5% Patch 2 PATCH TP (20:44)
[2023-02-23] MEDS: Mylanta Suspension 30 ML CUP PO (20:46)
[2023-02-23] MEDS: Pantoprazole 40 MG TABCR PO (20:47)
[2023-02-23] MEDS: Sucralfate 1 GM TAB PO (20:47)
[2023-02-23] MEDS: Melatonin 3 MG TAB 6 MG PO (20:47)
[2023-02-23] MEDS: Mirtazapine 15 MG TAB 7.5 MG PO (20:47)
[2023-02-23] MEDS: QUEtiapine 25 MG TAB 12.5 MG PO (20:48)
[2023-02-23] MEDS: Loperamide 2 MG CAP PO (20:49)
[2023-02-23 21:30] VITALS: BP 114/83; PULSE 90; RESP 20; TEMP 36.8; O2SAT 97
[2023-02-24] MEDS: Refresh PLUS Eye Drops 0.4ml 1 EACH OU ×6 (01:05→21:00)
[2023-02-24] MEDS: metroNIDAZOLE 500 MG/100 ML BAG 100 MG IVPB ×4 (01:06→21:10)
[2023-02-24 03:02] LABS: HCT 28.6 % (36.0-46.0); HGB 8.8 g/dL (11.2-15.7)
[2023-02-24 06:43] VITALS: BP 130/70; PULSE 111; RESP 20; TEMP 35.6; O2SAT 91
[2023-02-24] MEDS: Loperamide 2 MG CAP PO ×2 (08:08→20:49)
[2023-02-24] MEDS: Normal Saline Flush 10 ML SYR IVP ×2 (08:08→13:57)
[2023-02-24] MEDS: Pantoprazole 40 MG TABCR PO ×2 (08:08→20:51)
[2023-02-24] MEDS: Sucralfate 1 GM TAB PO ×4 (08:08→22:30)
--- NOTE | 2023-02-24 08:09 | W.PALPGNOTE ---
Date of service: 02/24/23 Time of Service: 08:09 Assessment and Plan Assessment and plan (1) Colitis due to Clostridium difficile: Status: Acute (2) Acute on chronic anemia: Status: Acute (3) Portal hypertension: Status: Chronic (4) Shortness of breath: Status: Acute (5) Palliative care patient: Status: Acute Assessment and plan: Leticia is getting hospitalized. She was quite critical of her care. I have spoken with both the nurse supervisory investigative specialist and the PRODUCT SAFETY TEST ENGINEER in charge of her care. They both understand her request. She really would like to have paracentesis. She is not a good candidate because of how sick she is and surgery in the past has told me that because of her condition that having paracentesis could be detrimental. It might be worth consulting them again and asking them if they would do it as she states that her breathing has been worse and that she feels she needs to be drained. Also the most recent CT showed increased ascites Regarding her shortness of breath low-dose morphine may be helpful. I would try either pills of one half of morphine 15 mg immediate release or 0.25 mL of liquid morphine She still has her catheter in her I would remove as many drains as possible .I do see a IV in her right hand. Hopefully she will be able to be switched over to all p.o. medications. Subjective Subjective Interval history since last seen: I feel awful I feel like I get Lambasted when I ask for help my water is old and stale and they would not give me any soda I want to get home to my dog as soon as possible. I am not ready to . I feel like I need to be tapped again. I do not feel like I can breathe. Exam Narrative Exam Narrative: Leticia is distraught at this time. She wants to go home. Her p.o. has not been adequate and sometimes she does not eat. This is pretty much her baseline at home. Her heart is regular. Breathing is regular and rhythmic. I do hear some coarse sounds. Her abdomen has bowel sounds and is not tense. Mood depressed and angry Objective Last Vital Signs Temp 96.0 F L 02/24/23 06:43 Pulse 111 H 02/24/23 06:43 Resp 20 02/24/23 06:43 BP 130/70 02/24/23 06:43 Pulse Ox 91 L 02/24/23 06:43 Laboratory Results - last 24 hr 02/23/23 02/23/23 02/23/23 06:18 12:20 12:20 Hgb Hct VBG pH 7.36 VBG pCO2 37 L VBG pO2 50 VBG HCO3 21 L VBG Total CO2 20 L VBG O2 Saturation 84 VBG Base Excess -5 L AST 15 Ammonia 21 02/24/23 02:50 Hgb 8.8 L Hct 28.6 L VBG pH VBG pCO2 VBG pO2 VBG HCO3 VBG Total CO2 VBG O2 Saturation VBG Base Excess AST Ammonia 02/23/23 IMPRESSION: 1. Significant increase in size of the abdominal pelvic ascites. 2. Bowel wall thickening seen in the colon which may represent colitis or secondary to abdominal ascites. 3. Stable presacral mass. 4. Bilateral pleural effusions and subjacent infiltrates.?
[2023-02-24] MEDS: Patch Removal 2 EACH TP (08:12)
[2023-02-24] MEDS: Budesonide 0.5 MG/2 ML UPD VIAL IH (08:16)
[2023-02-24 08:24] VITALS: O2SAT 90
--- NOTE | 2023-02-24 10:04 | PDOC.CMPRO ---
Date of service: 02/24/23 Time of Service: 10:05 Care Management Progress Note Progress Note Text Progress Note Text: S:CM was unable to meet with Leticia in person today. She was in the OR when CM first attempted to see her. Later in the day Leticia was asleep and CM opted not to wake her. She went to the OR this morning where a therapeutic paracentesis was performed. Per provider, over 5000 ml of fluid was removed.Leticia's remains afebrile and her blood pressure and oxygenation is relatively stable although she is a bit tachycardic. She continues to have diarrhea from the C. difficile and a new medication will be added to the treatment of the infection. Per provider and staff, Leticia has been more alert and awake today. A:Leticia is a 77 year old woman admitted on 02/16/23 with a GI Bleed P:Anticipate Leticia will be discharged home when medically cleared by provider. She will follow up with her community providers and plan of care as directed. Leticia will transport home via [facility] private vehicle coordinated by [facility]. CM will continue to support Leticia and any discharge planning needs.
--- NOTE | 2023-02-24 10:40 | W.PM.PROGNOT ---
Date of Service Date of service: 02/24/23 Time of Service: 10:40 Assessment and Plan Assessment and plan (1) Abdominal pain: Status: Acute Assessment and plan: likely d/t combo of her C difficile colitis and her increasing ascites. I will ask Dr. Angelito Noble, surgery to evaluate her and consider paracentesis. This will give short term relief. However then will need to optimize her diuretics. CT demonstrated diffuse colitis but not toxic megacolon. I have added Fidaxomicin to her regimen for her C difficile Professional time spent interviewing and examining patient, discussion of goals of care with hospital team (care management, nursing and consulting professionals) was 30 minutes. (2) Ascites due to chronic alcoholic hepatitis: Status: Inactive Assessment and plan: surgical consult as above (3) C. difficile colitis: Status: Resolved Assessment and plan: continue iv flagyl, oral vancomycin and add Fidaxomicin. I am asking pharmacy to look into getting her Bezlotoxumab, monoclonal antibody for C. difficile (4) Acute on chronic anemia: Status: Acute Assessment and plan: Stable chronic macrocytic anemia secondary to alcoholism. Hemoglobin 8.1 g hematocrit 25% MCV 102. Continue to monitor no evidence of acute GI bleeding. Does have a history of known gastritis and duodenitis and esophagitis from her alcoholism. Patient is on high-dose pantoprazole IV will switch her back to her routine dose of 40 mg orally twice a day as she is taking other oral medicines continue sucralfate 1 g before meals and at bedtime. (5) Portal hypertension: Status: Chronic Assessment and plan: at risk of portal gastropathy and varices. As above (6) Hypomagnesemia: Status: Acute Assessment and plan: Conts to require intermittent repletion. Continue to monitor (7) Alcohol abuse: Status: Chronic Assessment and plan: No evidence for acute alcohol withdrawal Likely contributing to her esophagitis/gastritis as well as her poor nutritional state. Encourage ongoing cessation. (8) DVT prophylaxis: Status: Acute Assessment and plan: SCDs Chemical DVT ppx is contraindicated in setting of suspected acute bleeding (9) Discharge planning issues: Status: Acute Assessment and plan: DNR/DNI Discharge home once she is medically stable and tolerating soft foods and having normal bowel movements and she is able to ambulate independently Subjective Subjective Interval history since last seen: Leticia is alert and oriented this morning. She still has diffuse abdominal pains. CT scan of her abdomen demonstrated diffuse bowel wall thickening c/w her dx of C difficile colitis, she also has increasing ascites. She refused P.T. this mornning out of fear of having diarrhea while getting out of bed. She has been on Vancomycin oral and iv flagyl since admission on 02/16 and she has not improved significantly. She remains afebrile and does not have leukocytosis (she is pancytopenic from her lung cancer treatments. However her Alf score is 2 d/t her age and low albumin and this is consistent w/ severe C difficile colitis. 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 In the interim I will ad Fidaxomicin Exam Narrative Exam Narrative: Leticia is alert and oriented She is lying in bed w/ the window shades pulled and sitting up watching TV, she does not appear to be in acute distress Lungs: clear anteriorly Heart: RRR Abdomen: very distended, tympanic bowel sounds and diffuse tenderness although no rebound tenderness Legs/feet: no edema or cyanosis Objective Last Vital Signs Temp 35.6 C L 02/24/23 06:43 Pulse 111 H 02/24/23 06:43 Resp 20 02/24/23 06:43 BP 130/70 02/24/23 06:43 Pulse Ox 90 L 02/24/23 08:24 Laboratory Results - last 24 hr 02/23/23 02/23/23 02/24/23 12:20 12:20 02:50 Hgb 8.8 L Hct 28.6 L VBG pH 7.36 VBG pCO2 37 L VBG pO2 50 VBG HCO3 21 L VBG Total CO2 20 L VBG O2 Saturation 84 VBG Base Excess -5 L Ammonia 21 PAWSS Have you Been Recently Intoxicated or Drunk Within the Last 30 days?: No Have you Ever Experienced Previous Episodes of Alcohol Withdrawal?: Yes Have you ever Experienced Withdrawal Seizures?: No Have you ever Experienced Delirium Tremens(DT)s?: Yes Have you ever undergone Alcohol Rehabilitation Treatment (i.e, inpt ot outpatient treatment programs)?: Yes Have you ever Experienced Blackouts?: No Have you ever Combined Alcohol with other Downers within the last 90 days?: No Have you ever Combined Alcohol with any other Substance of Abuse during the last 90 days?: No Evidence of Increased Autonomic Activity (i.e. HR>120, tremor, sweating, agitation, nausea)?: Yes Result: 4 Time Spent with Patient Time Spent with Patient: 25-34 minutes Time was spent: preparing to see the patient(eg.review tests), ordering medications,tests, procedures, referring, communicating with other health primary care nurse practitioner, indepentently interpreting results, counseling the patient and care coordination
[2023-02-24] MEDS: Psyllium PKT 1 EACH PO ×2 (11:28→20:51)
[2023-02-24] MEDS: Fidaxomicin 200 MG TAB PO ×2 (11:28→20:51)
--- NOTE | 2023-02-24 13:47 | ROE_ITS ---
Date of service: 02/24/23 Time of Service: 13:47 Operative Note Operative Note DATE OF PROCEDURE: 02/24/23 PRE-OP DIAGNOSIS: Tense ascites POST-OP DIAGNOSIS: same PROCEDURE: Therapeutic paracentesis SURGEON: Angelito Noble ANESTHESIA TYPE: Local By Surgeon Refer to Anesthesia Record ESTIMATED BLOOD LOSS: 5 PATHOLOGY: none sent COMPLICATIONS: None Patient was transported to: floor Patient's condition: stable Indications: Julia is a 77-year-old woman with tense ascites. Findings: 5450 liters of straw-colored ascites Procedure Description: I started by performing a limited ultrasound of the abdomen to identify appropriate site for paracentesis. Next, I selected the right lower quadrant as the ideal site for paracentesis. I then prepped and draped the abdomen. Next, using ultrasound guidance, I anesthetized the skin with 1% lidocaine with epi nephrine. I used the ultrasound to guide the needle down to the peritoneal level which was also anesthetized. I then made a small incision in the skin with a 11 blade scalpel. Next, I advanced the 5 [place] paracentesis needle and catheter through the incision and into the peritoneal cavity under the direct vision of the ultrasound. I aspirated straw-colored ascites. Next, I gently advance the catheter and remove the needle. I affixed drainage tubing, and began draining the ascites with the assistance of Vacutainer's. I drained 5450 mL of ascites. Once the ascites stopped flowing, I removed the catheter and used a Band-Aid to dress the wound.
--- NOTE | 2023-02-24 13:49 | W.PM.PROGNOT ---
Date of Service Date of service: 02/24/23 Time of Service: 11:50 Assessment and Plan Assessment and plan (1) Abdominal ascites: Status: Acute Assessment and plan: I do agree that Leticia will benefit from therapeutic paracentesis. I explained that this would be used strictly to help reduce the discomfort associated with her abdominal pain. It might also improve some positional dyspnea that she is experiencing around the time of sleep. I think she has a good understanding of the risks and the benefits of the procedure, she was able to provide informed consent today, or making arrangements to proceed urgently. Subjective Subjective Interval history since last seen: I was asked to revisit with Leticia to discuss palliative paracentesis. We talked for a little bit about her increasing abdominal girth, and the discomfort that she has been experiencing. I explained that the procedure would be the exact same as paracentesis that I performed before. Exam GI Other: Her abdomen is distended and tense, consistent with tense ascites Objective Last Vital Signs Temp 96.0 F L 02/24/23 06:43 Pulse 111 H 02/24/23 06:43 Resp 20 02/24/23 06:43 BP 130/70 02/24/23 06:43 Pulse Ox 90 L 02/24/23 08:24 Laboratory Results - last 24 hr 02/24/23 02:50 Hgb 8.8 L Hct 28.6 L PAWSS Have you Been Recently Intoxicated or Drunk Within the Last 30 days?: No Have you Ever Experienced Previous Episodes of Alcohol Withdrawal?: Yes Have you ever Experienced Withdrawal Seizures?: No Have you ever Experienced Delirium Tremens(DT)s?: Yes Have you ever undergone Alcohol Rehabilitation Treatment (i.e, inpt ot outpatient treatment programs)?: Yes Have you ever Experienced Blackouts?: No Have you ever Combined Alcohol with other Downers within the last 90 days?: No Have you ever Combined Alcohol with any other Substance of Abuse during the last 90 days?: No Evidence of Increased Autonomic Activity (i.e. HR>120, tremor, sweating, agitation, nausea)?: Yes Result: 4 Time Spent with Patient Time Spent with Patient: <25 minutes Time was spent: counseling the patient
--- NOTE | 2023-02-24 16:00 | PT.INNT ---
Date of service: 02/24/23 Time of Service: 10:17 PT Notes Visit Reasons: Symtomatic anemia of acute GI blood loss Patient refuses therapy in the A.M. due to pain, concern about accidental stooling, and fatigue. Reports she has not been sleeping well. Patient refuses again in the afternoon, this time citing fatigue as the primary reason. This therapist did discuss with patient that therapy can only take a certain number of refusals before we have to stop going in. Patient verbalizes understanding. Supervising PT Tawana Cruz and case management team are aware.
[2023-02-24] MEDS: Ondansetron O.D.T. 4 MG TABEF PO (17:30)
[2023-02-24] MEDS: HYDROmorphone 2 MG TAB 1 MG PO (18:24)
[2023-02-24] MEDS: QUEtiapine 25 MG TAB 12.5 MG PO (20:49)
[2023-02-24] MEDS: Melatonin 3 MG TAB 6 MG PO (20:50)
[2023-02-24] MEDS: Mirtazapine 15 MG TAB 7.5 MG PO (20:51)
[2023-02-24] MEDS: Acetaminophen 325 MG TAB PO (20:52)
[2023-02-24] MEDS: Lidocaine 5% Patch 2 PATCH TP (21:00)
[2023-02-25] MEDS: HYDROmorphone 2 MG TAB 1 MG PO ×3 (03:10→20:59)
[2023-02-25] MEDS: metroNIDAZOLE 500 MG/100 ML BAG 100 MG IVPB ×4 (03:12→21:09)
[2023-02-25] MEDS: Acetaminophen 325 MG TAB PO ×2 (06:01→21:00)
[2023-02-25] MEDS: Pantoprazole 40 MG TABCR PO ×2 (06:02→21:03)
[2023-02-25] MEDS: Sucralfate 1 GM TAB PO ×4 (06:27→22:06)
[2023-02-25 07:46] VITALS: BP 136/85; PULSE 106; RESP 22; TEMP 36.9; O2SAT 98
[2023-02-25 08:27] VITALS: PULSE 107; RESP 1; RESP 20; RESP 8; O2SAT 97
[2023-02-25] MEDS: Albuterol/Ipratropium 3 ML UPD VIAL IH (08:27)
[2023-02-25] MEDS: Budesonide 0.5 MG/2 ML UPD VIAL IH (08:29)
[2023-02-25 08:39] VITALS: PULSE 111; RESP 1; RESP 20; RESP 8; O2SAT 97
--- NOTE | 2023-02-25 08:50 | PDOC.CMPRO ---
Date of service: 02/25/23 Time of Service: 08:50 Care Management Progress Note Progress Note Text Progress Note Text: S:Leticia was working with PT in the hallway when CM met with her. She was in a wheelchair and was attempting to stand from a sitting position. It took her several attempts, but eventually she was successful. She then walked from her chair to her room. Leticia still has some leakage from the site of her paracentesis and she stated that this is bothersome to her. It has soaked her arjun several times today. She is also reluctant to ambulate because she continues to have liquid stools and is concerned about having an accident. Dificid has been added to the regimen to treat her C. dificile colitis. A:Leticia is a 77 year old woman admitted on 02/16/23 with a GI Bleed P:Anticipate Leticia will be discharged home when medically cleared by provider. She will follow up with her community providers and plan of care as directed. Leticia will transport home via [facility] private vehicle coordinated by [facility]. CM will continue to support Leticia and any discharge planning needs.
[2023-02-25] MEDS: valACYclovir 500 MG TAB PO (08:56)
[2023-02-25] MEDS: Fidaxomicin 200 MG TAB PO ×2 (08:56→21:01)
[2023-02-25] MEDS: Venlafaxine 75 MG CAPCR PO (08:56)
[2023-02-25] MEDS: Refresh PLUS Eye Drops 0.4ml 1 EACH OU ×4 (08:56→21:03)
[2023-02-25] MEDS: Metoprolol 50 MG TAB PO (08:56)
[2023-02-25] MEDS: Psyllium PKT 1 EACH PO (08:56)
[2023-02-25] MEDS: Mirabegron 50 MG TABCR PO (08:56)
[2023-02-25] MEDS: Ondansetron O.D.T. 4 MG TABEF PO ×2 (13:53→21:05)
--- NOTE | 2023-02-25 14:29 | PGE_ITS ---
Date of Service Date of service: 02/25/23 Time of Service: 14:29 Assessment and Plan Assessment and plan (1) Abdominal pain: Status: Acute Assessment and plan: secondary to C difficile colitis and ascites, improved since her paracentesis. continue to monitor, encourage po intake, treat C difficile colitis (currently on Flagyl iv, vancomycin po and fidaxomicin po; now will give her the monoclonal antibody Bezlotoxumab. Professional time spent interviewing and examining patient, discussion of goals of care with hospital team (care management, nursing and consulting sharath sampson) was 30 minutes. (2) C. difficile colitis: Status: Resolved Assessment and plan: as above. If the MAB does not work then she will be referred to tertiary center for fecal microbiota transplant; I explained this to her. (3) Ascites due to chronic alcoholic hepatitis: Status: Inactive Assessment and plan: improved since paracentesis. I am reluctant to resume diuretics for control of her ascites until she is taking better po less she become hypotensive and prerenal. I will watch her for a day or two to see if her po intake picks up after the MAB infusion (4) Acute on chronic anemia: Status: Acute Assessment and plan: stable. Hb is actually improving. up to 8.8 gm, continue to monitor. continue B12 supplementation; folate levels were high. (5) Portal hypertension: Status: Chronic Assessment and plan: at risk of portal gastropathy and varices. As above (6) Hypomagnesemia: Status: Acute Assessment and plan: Conts to require intermittent repletion. Continue to monitor (7) Alcohol abuse: Status: Chronic Assessment and plan: No evidence for acute alcohol withdrawal Likely contributing to her esophagitis/gastritis as well as her poor nutritional state. Encourage ongoing cessation. (8) DVT prophylaxis: Status: Acute Assessment and plan: SCDs Chemical DVT ppx is contraindicated in setting of suspected acute bleeding (9) Discharge planning issues: Status: Acute Assessment and plan: DNR/DNI Discharge home once she is medically stable and tolerating soft foods and having normal bowel movements and she is able to ambulate independently Subjective Subjective Interval history since last seen: Leticia states that everyone is mean to me however when I asked her to elaborate she said that I would not understand. She says that she is still having diarrhea, two watery stools today. I told her that we are going to give her an antibody to the C difficile, Bezlotuxumab and hopefully this will help clear her C difficile colitis. Her abdominal pain does not seem as bad today since she had her paracentesis. Appetite is still poor. Exam Narrative Exam Narrative: Leticia is alert, watching TV, surprisingly her room shades are partially raised and her room lights were on (usually she lies or sits in the dark even when she is not sleeping) Lungs: clear Heart: RRR Abdomen: soft, no longer distended, active bowel sounds (not high pitch tympanitic) and she has minimal tenderness, only noted w/ deep palpations Extremities: no edema She still has a ochoa in place, urine appears dark, concentrated. Objective Last Vital Signs Temp 36.9 C 02/25/23 07:46 Pulse 111 H 02/25/23 08:39 Resp 20 02/25/23 08:39 BP 136/85 02/25/23 07:46 Pulse Ox 97 02/25/23 08:39 PAWSS Have you Been Recently Intoxicated or Drunk Within the Last 30 days?: No Have you Ever Experienced Previous Episodes of Alcohol Withdrawal?: Yes Have you ever Experienced Withdrawal Seizures?: No Have you ever Experienced Delirium Tremens(DT)s?: Yes Have you ever undergone Alcohol Rehabilitation Treatment (i.e, inpt ot outpatient treatment programs)?: Yes Have you ever Experienced Blackouts?: No Have you ever Combined Alcohol with other Downers within the last 90 days?: No Have you ever Combined Alcohol with any other Substance of Abuse during the last 90 days?: No Evidence of Increased Autonomic Activity (i.e. HR>120, tremor, sweating, agitation, nausea)?: Yes Result: 4 Time Spent with Patient Time Spent with Patient: 25-34 minutes Time was spent: preparing to see the patient(eg.review tests), ordering medications,tests, procedures, referring, communicating with other health palliative care coordinator, indepentently interpreting results, counseling the patient and care coordination
--- NOTE | 2023-02-25 16:06 | CHAPLAIN ---
Leticia and I know each other from previous admissions. She was in bed when I visited. Her shades were raised slightly letting in some sunshine but Pat said because of her eyes, she doesn't want a lot of light in her room. She said she's feeling better since having fluid (5L) drained from her abdomen yesterday. Although she would like to go home to be with her dog and cats (one cat may have feline leukaemia), Leticia said she doesn't think she is strong enough to go home yet and would like to feel more confident about being independent before going home. Her sister is looking after her pets. She has an aide for 6 hours/week, who uses words like she got off a [place] ship, Leticia said. That's just her.
[2023-02-25] MEDS: Scopolamine 1 MG/3 DAYS PATCH TD (17:32)
--- NOTE | 2023-02-25 17:32 | PT.INNT ---
Date of service: 02/25/23 Time of Service: 17:23 PT Notes Visit Reasons: Symtomatic anemia of acute GI blood loss Patient is well pleased with the therapy she received this morning, however right now her goal is to eat. Feels as though it is too late in the day for therapy anyhow.
--- NOTE | 2023-02-25 18:27 | PTTR_ITS ---
Date of service: 02/25/23 Time of Service: 11:51 PT Notes Visit Reasons: Symtomatic anemia of acute GI blood loss Inpatient Physical Therapy Treatment Note [facility] Date: 02/25/2023 SUBJECTIVE: Needed strong persuasion to get out of bed and get walking this morning. She sees the reason as to why this PT was firm with her about trying out to get out of bed and walking. Sad about the passing of her cat Reyez due to feline aster kemia. Nurse Charlette unhooked patient from IV temporarily to facilitate ease of mobilizing patient. OBJECTIVE: ? ? General Observation:? Resting in bed.? IV access in R UE. PAIN: 3-4/10 in abdominal area ? BED MOBILITY/TRANSFERS Supine to sit? minimal assist Sit to stand minimal assist Bed to chair contact guard assist ? GAIT? Device: FWW Weight bearing: Full Assist: CGA Distance: 20 feet + 50 feet + 50 feet Deviation:? Slowed violeta.? Minimal abdominal discomfort.? Complained of dizziness. ? ASSESSMENT:? Slowly gaining more confidence to walk and manage FWW. Responds well to firm instructions specially if goal of going home is emphasized. Likes to be cheered on. PLAN: Progress functional mobility level,? strength, and balance in anticipation of discharge to home with needed services. TREATMENT CODE/TIME: 91639 x 40 minutes? beginning at 11:51 AM.
[2023-02-25] MEDS: Patch Removal 2 EACH TP (18:52)
[2023-02-25] MEDS: QUEtiapine 25 MG TAB 12.5 MG PO (21:01)
[2023-02-25] MEDS: Loperamide 2 MG CAP PO (21:01)
[2023-02-25] MEDS: Melatonin 3 MG TAB 6 MG PO (22:06)
[2023-02-25] MEDS: Mirtazapine 15 MG TAB 7.5 MG PO (22:06)
[2023-02-25] MEDS: Lidocaine 5% Patch 2 PATCH TP (22:08)
[2023-02-26] MEDS: Ondansetron 4 MG/2 ML VIAL IVP (01:27)
[2023-02-26] MEDS: metroNIDAZOLE 500 MG/100 ML BAG 100 MG IVPB ×3 (01:28→14:44)
[2023-02-26 08:02] VITALS: O2SAT 97
[2023-02-26] MEDS: Budesonide 0.5 MG/2 ML UPD VIAL IH (08:02)
--- NOTE | 2023-02-26 08:19 | PT.INTREAT ---
PT Notes Visit Reasons: Symtomatic anemia of acute GI blood loss Date: 02/26/2023 820 SUBJECTIVE: Pt reports that she was sick earlier and worried she will vomit again if she moves, refuses treatment at this time OBJECTIVE: ? ? General Observation:? Resting in bed.? IV access in R UE. PAIN: 3-4/10 in abdominal area ? BED MOBILITY/TRANSFERS Supine to sit? minimal assist Sit to stand minimal assist Bed to chair contact guard assist ? GAIT? Device: FWW Weight bearing: Full Assist: CGA Distance: 20 feet + 50 feet + 50 feet Deviation:? Slowed violeta.? Minimal abdominal discomfort.? Complained of dizziness. ? ASSESSMENT:? Slowly gaining more confidence to walk and manage FWW.? Responds well to firm instructions specially if goal of going home is emphasized.? Likes to be cheered on. PLAN: Progress functional mobility level,? strength, and balance in anticipation of discharge to home with needed services. TREATMENT CODE/TIME: 01486 x 40 minutes? beginning at 11:51 AM.
--- NOTE | 2023-02-26 08:26 | PT.INNT ---
PT Notes Visit Reasons: Symtomatic anemia of acute GI blood loss SUBJECTIVE: Pt reports that she was sick earlier and worried she will vomit again if she moves, refuses treatment at this time
[2023-02-26] MEDS: Ondansetron O.D.T. 4 MG TABEF PO ×2 (08:46→20:07)
[2023-02-26] MEDS: Pantoprazole 40 MG TABCR PO ×2 (08:47→19:58)
[2023-02-26] MEDS: Fidaxomicin 200 MG TAB PO ×2 (08:48→19:57)
[2023-02-26] MEDS: Venlafaxine 75 MG CAPCR PO (08:48)
[2023-02-26] MEDS: QUEtiapine 25 MG TAB 12.5 MG PO ×2 (08:48→19:55)
[2023-02-26] MEDS: valACYclovir 500 MG TAB PO (08:49)
[2023-02-26] MEDS: Metoprolol 50 MG TAB PO (08:49)
[2023-02-26] MEDS: Mirabegron 50 MG TABCR PO (08:49)
[2023-02-26] MEDS: Sucralfate 1 GM TAB PO ×3 (08:49→19:55)
[2023-02-26] MEDS: Refresh PLUS Eye Drops 0.4ml 1 EACH OU ×3 (08:50→19:59)
[2023-02-26] MEDS: Psyllium PKT 1 EACH PO ×2 (10:14→19:59)
[2023-02-26] MEDS: Patch Removal 2 EACH TP (10:14)
[2023-02-26 11:30] LABS: Abs Immature Grans 0.03 10^3/uL (0.0-0.06); Absolute Basophil Count 0.01 10^3/uL (0.0-0.2); Absolute Eosinophil Count 0.01 10^3/uL (0.0-0.7); Absolute Lymphocyte Count 0.54 10^3/uL (1.2-3.4); Absolute Neutrophil Count 2.17 10^3/uL (1.2-6.7); Basophils % 0.3; Eosinophils % 0.3; HGB 8.9 g/dL (11.2-15.7); Lymphocytes % 17.6; MCH 32.6 pg (27.0-33.0); MCHC 31.8 % (32.0-36.0); MCV 103 fL (80-95); MPV 9.3 fL (8.0-11.0); Monocytes % 9.8; Platelet Count 164 10^3/uL (130-400); RBC 2.73 10^6/uL (3.93-5.22); RDW 19.7 % (11.7-14.6); RDW-SD 73.9 fL; WBC 3.06 10^3/uL (4.4-10.8)
[2023-02-26 11:36] LABS: Anion Gap 9.2 mmol/L (3-11); BUN 10 mg/dL (7-18); CO2 19.8 mmol/L (21.0-32.0); Calcium 8.5 mg/dL (8.5-10.1); Chloride 107 mmol/L (98-107); Estimated GFR 58.39 (mL/min/1.73m2); Glucose 135 mg/dL (74-106); Potassium 3.9 mmol/L (3.5-5.1); Sodium 136 mmol/L (136-145)
--- NOTE | 2023-02-26 15:38 | PDOC.CMPRO ---
Date of service: 02/26/23 Time of Service: 15:38 Care Management Progress Note Progress Note Text Progress Note Text: S:Leticia was sitting up in bed having lunch when CM met with her. She was visibly upset as she had just spilled her cup of tea onto her dinner plate and all over her sheets and arjun. CM helped to clean her up and reorder lunch. Leticia has not been working with PT much of the time. She refused yesterday afternoon and again this morning. CM inquired if she would be willing to consider rehab. Leticia indicated that she would not. She cited her animals as the reason. CM did remind Leticia that she has become very deconditioned since her admission 10 days ago and that functioning independently at home would be very challenging in her current state. A:Leticia is a 77 year old woman admitted on 02/16/23 with a GI Bleed P:Anticipate Leticia will be discharged home with a resumption of home health services when medically cleared by provider. She would likely benefit from short term rehab in a SNF but, at this point, she is not willing. She will follow up with her community providers and plan of care as directed. Leticia will transport home via [facility] private vehicle coordinated by CM. CM will continue to support Leticia and any discharge planning needs.
[2023-02-26 15:41] VITALS: BP 132/78; PULSE 94; RESP 20; TEMP 36.5; O2SAT 97
--- NOTE | 2023-02-26 17:00 | W.PM.PROGNOT ---
Date of Service Date of service: 02/26/23 Time of Service: 17:00 Assessment and Plan Assessment and plan (1) Abdominal pain: Status: Acute Assessment and plan: secondary to C difficile colitis and ascites, improved since her paracentesis. s/p Professional time spent interviewing and examining patient, discussion of goals of care with hospital team (care management, nursing and consulting professionals) was 30 minutes. (2) C. difficile colitis: Status: Resolved Assessment and plan: as above. If the MAB does not work then she will be referred to tertiary center for fecal microbiota transplant; I explained this to her. (3) Ascites due to chronic alcoholic hepatitis: Status: Inactive Assessment and plan: improved since paracentesis. I am reluctant to resume diuretics for control of her ascites until she is taking better po less she become hypotensive and prerenal. I will watch her for a day or two to see if her po intake picks up after the MAB infusion (4) Acute on chronic anemia: Status: Acute Assessment and plan: stable. Hb is actually improving. up to 8.8 gm, continue to monitor. continue B12 supplementation; folate levels were high. (5) Portal hypertension: Status: Chronic Assessment and plan: at risk of portal gastropathy and varices. As above (6) Hypomagnesemia: Status: Acute Assessment and plan: Conts to require intermittent repletion. Continue to monitor (7) Alcohol abuse: Status: Chronic Assessment and plan: No evidence for acute alcohol withdrawal Likely contributing to her esophagitis/gastritis as well as her poor nutritional state. Encourage ongoing cessation. (8) DVT prophylaxis: Status: Acute Assessment and plan: SCDs Chemical DVT ppx is contraindicated in setting of suspected acute bleeding (9) Discharge planning issues: Status: Acute Assessment and plan: DNR/DNI Discharge home once she is medically stable and tolerating soft foods and having normal bowel movements and she is able to ambulate independently Subjective Subjective Interval history since last seen: Patient is no longer having diarrhea. Abdominal pain is better since the paracentesis. She is having leakeage from the paracentesis site. I discussed w/ Leticia the fact that she has been here for 10 days and she has hardly worked w/ P.T. often refusing to participate. I also explained that while she is too weak to care for herself in her current condition, the fact that she refuses to be admitted to SNF and to not work w/ our P.T. leaves us no choice but to discharge her. Her C difficile colitis is under improved control and she no longer needs inpatient medical hospitalization although she would benefit from a short term rehab stay. However, she has refused this based on her concern that her sister can not continue to care for Leticia's pets at home. I told her that I plan for discharge tomorrow morning unless she is willing to participate in a rehab program. Exam Narrative Exam Narrative: Leticia is lying in bed w/ the shade drawn, she has her sunglasses on. She is alert, oriented x 3 Lungs: clear Heart: RRR Abdomen: no longer distended, soft, nontender, but draining ascites from her paracentesis site. Legs: no edema Objective Last Vital Signs Temp 36.5 C 02/26/23 15:41 Pulse 94 H 02/26/23 15:41 Resp 20 02/26/23 15:41 BP 132/78 02/26/23 15:41 Pulse Ox 97 02/26/23 15:41 Laboratory Results - last 24 hr 02/26/23 02/26/23 11:16 11:16 WBC 3.06 L RBC 2.73 L Hgb 8.9 L Hct 28.0 L MCV 103 H MCH 32.6 MCHC 31.8 L RDW 19.7 H Plt Count 164 MPV 9.3 Immature Gran % 1.0 Neutrophils % 71.0 Lymphocytes % 17.6 Monocytes % 9.8 Eosinophils % 0.3 Basophils % 0.3 Nucleated RBC % 0.0 Absolute Neutrophils 2.17 Absolute Lymphocytes 0.54 L Absolute Monocytes 0.30 Absolute Eosinophils 0.01 Absolute Basophils 0.01 Sodium 136 Potassium 3.9 Chloride 107 Carbon Dioxide 19.8 L Anion Gap 9.2 BUN 10 Creatinine 1.0 Est GFR (CKD-EPI 2020) 58.39 Glucose 135 H Calcium 8.5 PAWSS Have you Been Recently Intoxicated or Drunk Within the Last 30 days?: No Have you Ever Experienced Previous Episodes of Alcohol Withdrawal?: Yes Have you ever Experienced Withdrawal Seizures?: No Have you ever Experienced Delirium Tremens(DT)s?: Yes Have you ever undergone Alcohol Rehabilitation Treatment (i.e, inpt ot outpatient treatment programs)?: Yes Have you ever Experienced Blackouts?: No Have you ever Combined Alcohol with other Downers within the last 90 days?: No Have you ever Combined Alcohol with any other Substance of Abuse during the last 90 days?: No Evidence of Increased Autonomic Activity (i.e. HR>120, tremor, sweating, agitation, nausea)?: Yes Result: 4 Time Spent with Patient Time Spent with Patient: 25-34 minutes Time was spent: preparing to see the patient(eg.review tests), ordering medications,tests, procedures, referring, communicating with other health career development coordinator (Discussion with case management), indepentently interpreting results, counseling the patient and care coordination
[2023-02-26] MEDS: Melatonin 3 MG TAB 6 MG PO (19:55)
[2023-02-26] MEDS: Mirtazapine 15 MG TAB 7.5 MG PO (19:55)
[2023-02-26] MEDS: Lidocaine 5% Patch 2 PATCH TP (19:58)
[2023-02-26 23:55] VITALS: BP 116/70; PULSE 92; RESP 22; TEMP 36.2; O2SAT 96
[2023-02-27] MEDS: Ondansetron O.D.T. 4 MG TABEF PO ×3 (04:59→21:41)
[2023-02-27] MEDS: Mylanta Suspension 30 ML CUP PO (07:12)
[2023-02-27] MEDS: Budesonide 0.5 MG/2 ML UPD VIAL IH (07:59)
[2023-02-27] MEDS: Psyllium PKT 1 EACH PO (08:58)
[2023-02-27] MEDS: Refresh PLUS Eye Drops 0.4ml 1 EACH OU ×2 (08:58→15:40)
[2023-02-27] MEDS: Fluticasone NASAL SPRAY 16 GM BTL NS (08:58)
[2023-02-27] MEDS: Mirabegron 50 MG TABCR PO (08:59)
[2023-02-27] MEDS: Sucralfate 1 GM TAB PO ×3 (08:59→21:41)
[2023-02-27] MEDS: valACYclovir 500 MG TAB PO (08:59)
[2023-02-27] MEDS: Fidaxomicin 200 MG TAB PO (08:59)
[2023-02-27] MEDS: Pantoprazole 40 MG TABCR PO ×2 (08:59→21:42)
[2023-02-27] MEDS: QUEtiapine 25 MG TAB 12.5 MG PO ×2 (08:59→21:42)
[2023-02-27] MEDS: Venlafaxine 75 MG CAPCR PO (08:59)
[2023-02-27] MEDS: Metoprolol 50 MG TAB PO (08:59)
[2023-02-27] MEDS: Patch Removal 2 EACH TP (09:00)
--- NOTE | 2023-02-27 10:38 | PTTR_ITS ---
PT Notes Visit Reasons: Symtomatic anemia of acute GI blood loss Subjective: Pt reports that she is having headaches, fits of nausea and vomiting and would not like to leave her bed, pt agreed to bed level exercises after being encouraged by RESIDENTIAL THERAPIST, pt able to perform shoulder and leg planar movements and diagonals with max verbal cuing for continuity with task, pt refused doing anything else after activity. pt setup in bed for comfort and alignment after session. 15052 Therapeutic Procedure 8mins (10:27-10:35am)
[2023-02-27 15:00] VITALS: BP 125/84; PULSE 89; RESP 18; TEMP 36.7; O2SAT 98
--- NOTE | 2023-02-27 17:51 | W.PM.PROGNOT ---
Date of Service Date of service: 02/27/23 Time of Service: 17:51 Assessment and Plan Assessment and plan (1) C. difficile colitis: Status: Resolved Assessment and plan: Abdominal pain is resolved. She is no longer having diarrhea or vomiting. She was successfully treated with monoclonal antibody. Nevertheless she should go home on a taper dose of vancomycin to prevent recurrence of her C. difficile. (2) Ascites due to chronic alcoholic hepatitis: Status: Inactive Assessment and plan: improved since her paracentesis. ostomy bag applied to catch excess drainage from her puncture site. I will restart her on her spironolactone but start her on once per day. (3) Acute on chronic anemia: Status: Acute Assessment and plan: stable. monitor as outpatient (4) Hypomagnesemia: Status: Acute Assessment and plan: Conts to require intermittent repletion. Continue to monitor (5) Alcohol abuse: Status: Chronic Assessment and plan: No evidence for acute alcohol withdrawal Likely contributing to her esophagitis/gastritis as well as her poor nutritional state. Encourage ongoing cessation. (6) DVT prophylaxis: Status: Acute Assessment and plan: SCDs Chemical DVT ppx is contraindicated in setting of suspected acute bleeding (7) Discharge planning issues: Status: Acute Assessment and plan: dc home tomorrow w/ home health nursing and PT and OT Subjective Subjective Interval history since last seen: Leticia was supposed to participate in physical therapy today in order to be eligible to enter into a swing bed program. However the patient refused to get out of bed for therapy reportedly stated she was too tired and nauseated. However the patient herself tells me that the physical therapist told her that she did not have to participate in therapy if she did not want to. Irregardless has been explained to Leticia that her diarrhea and ascites have improved since she had the paracentesis and she was treated with a monoclonal antibody for her C. difficile colitis. She has been afebrile and not having any emesis. It has been documented that she is able to get out of bed and transfer to a chair walking across the floor short distance. While I remain skeptical that she will fare very well at home without further rehabilitation nevertheless she is refused to participate in therapy here at [facility] and therefore would not be eligible for swing bed program and she would not be excepted in any area residential facilities furthermore she does not want to go to a SNF out of concern for her pets at home. Case management Lien, and myself both spoke with the patient explained that she will be discharged tomorrow morning. We will set follow-up PT and OT and home nursing to follow her in the home and to initiate home therapy. Exam Narrative Exam Narrative: Julia is dressed alert oriented Lungs are clear to auscultation Heart is regular Abdomen is soft nondistended normal bowel sounds no rebound tenderness or guarding Extremities without peripheral cyanosis or edema Objective Last Vital Signs Temp 36.7 C 02/27/23 15:00 Pulse 89 02/27/23 15:00 Resp 18 02/27/23 15:00 BP 125/84 02/27/23 15:00 Pulse Ox 98 02/27/23 15:00 PAWSS Have you Been Recently Intoxicated or Drunk Within the Last 30 days?: No Have you Ever Experienced Previous Episodes of Alcohol Withdrawal?: Yes Have you ever Experienced Withdrawal Seizures?: No Have you ever Experienced Delirium Tremens(DT)s?: Yes Have you ever undergone Alcohol Rehabilitation Treatment (i.e, inpt ot outpatient treatment programs)?: Yes Have you ever Experienced Blackouts?: No Have you ever Combined Alcohol with other Downers within the last 90 days?: No Have you ever Combined Alcohol with any other Substance of Abuse during the last 90 days?: No Evidence of Increased Autonomic Activity (i.e. HR>120, tremor, sweating, agitation, nausea)?: Yes Result: 4 Time Spent with Patient Time Spent with Patient: 25-34 minutes Time was spent: preparing to see the patient(eg.review tests), ordering medications,tests, procedures, referring, communicating with other health pediatric critical care nurse, indepentently interpreting results, counseling the patient and care coordination
[2023-02-27] MEDS: Melatonin 3 MG TAB 6 MG PO (21:41)
[2023-02-27] MEDS: Mirtazapine 15 MG TAB 7.5 MG PO (21:42)
[2023-02-27] MEDS: HYDROmorphone 2 MG TAB 1 MG PO (22:48)
--- NOTE | 2023-02-27 22:57 | NUR.NOTE ---
Nursing Note: pt extremely agitated chcf through taking pills because we explained that she needed to repo and not lay in one spot. refused to take the rest of her pills. pt now callin repeatedly stating that noone has been in in and hour and telling me to do some housework. pt did state that she was lonely and in pain. i gave her prn pain meds to help with pain. pt is now resting and denies further needs at this time. is clearly agitated and angry, wctm.
[2023-02-27 23:02] VITALS: BP 127/80; PULSE 76; RESP 18; TEMP 37; O2SAT 94
--- NOTE | 2023-02-28 03:43 | NUR.NOTE ---
Nursing Note: pt agitated tonight, has continued to refuse some meds but wont give a reason why
[2023-02-28 07:52] VITALS: BP 132/81; PULSE 110; RESP 18; TEMP 36.4; O2SAT 98
--- NOTE | 2023-02-28 08:07 | W.PALPGNOTE ---
Date of service: 02/28/23 Time of Service: 08:07 Assessment and Plan Assessment and plan (1) Colitis due to Clostridium difficile: Status: Acute (2) Acute on chronic anemia: Status: Acute (3) Lung cancer: Status: Chronic (4) Palliative care patient: Status: Acute Assessment and plan: Leticia does have capacity. Unfortunately she chooses to make poor decisions. She misses her dog and she wants to go home. Generally when she goes home she also does start drinking alcohol again. These are all bad decisions but she has the right to make them. Unfortunately her strength is still very low. I am not sure how she is even going to make it from the car to the [facility] who will be bringing her home. I do not know how she is going to manage things at home although she will have home health services again. I would expect that she is going to fail C. difficile?she has not had any bowel movements like she was before. She states that the Imodium helps. She is receiving antibiotics. My hope is that when she goes home that she will have pretty much treated the infection as she is not compliant with medication I will continue to follow her at home. We will be very interesting as to how the next couple of weeks ago Subjective Subjective Interval history since last seen: Leticia states that she feels much much better after the paracentesis. She feels that she can breathe better and has less distention. She is looking forward to going home but not certain how she is going to cope as she still feels very weak. I have read clinicians notes. Leticia is refusing physical therapy. She is refusing SNF referral. Exam Narrative Exam Narrative: She is lying in her bed. She still looks quite pale. Her heart is regular. She has air movement in her lungs. Objective Last Vital Signs Temp 97.5 F L 02/28/23 07:52 Pulse 110 H 02/28/23 07:52 Resp 18 02/28/23 07:52 BP 132/81 02/28/23 07:52 Pulse Ox 98 02/28/23 07:52
[2023-02-28] MEDS: Sucralfate 1 GM TAB PO ×2 (09:11→15:18)
[2023-02-28] MEDS: Metoprolol 50 MG TAB PO (09:11)
[2023-02-28] MEDS: Pantoprazole 40 MG TABCR PO ×2 (09:11→21:03)
[2023-02-28] MEDS: Mirabegron 50 MG TABCR PO (09:12)
[2023-02-28] MEDS: valACYclovir 500 MG TAB PO (09:12)
[2023-02-28] MEDS: Refresh PLUS Eye Drops 0.4ml 1 EACH OU ×3 (09:12→21:05)
[2023-02-28] MEDS: Venlafaxine 75 MG CAPCR PO (09:12)
[2023-02-28] MEDS: Patch Removal 2 EACH TP (09:13)
[2023-02-28] MEDS: QUEtiapine 25 MG TAB 12.5 MG PO ×2 (09:13→21:05)
[2023-02-28 09:25] VITALS: PULSE 113; RESP 24; RESP 8; O2SAT 97
[2023-02-28] MEDS: Albuterol/Ipratropium 3 ML UPD VIAL IH (09:25)
[2023-02-28] MEDS: Budesonide 0.5 MG/2 ML UPD VIAL IH (09:26)
[2023-02-28 09:33] VITALS: PULSE 120; RESP 1; RESP 20; RESP 8; O2SAT 98
--- NOTE | 2023-02-28 10:01 | W.PM.PROGNOT ---
Date of Service Date of service: 02/28/23 Time of Service: 10:01 Assessment and Plan Assessment and plan (1) Abdominal ascites: Status: Acute Assessment and plan: We talked about options for managing the drainage from the wound. Essentially, I could place a stitch, which she can wear an ostomy bag to help control the effluent. She is quite uncomfortable going home with the bag, and feels like she is not able to manage it even with the assistance of nursing at home. Therefore, I anesthetized the site with 2 cc of 1% lidocaine. I used a [id number] suture to help close the hole. I applied a gentle pressure dressing. He may still have some ongoing drainage from here, that can be dressed with absorptive dressings. The suture at her skin is absorbable, but certainly can be removed if the wound dries out, and the stitch itself is irritating. Subjective Subjective Interval history since last seen: And has continued drainage of ascites out of her paracentesis access site. She drained about 350 mL overnight. Exam GI Other: Her abdomen is a bit firm, and it feels like she is reaccumulating more ascites. Drainage from the needle site is serous Objective Last Vital Signs Temp 97.5 F L 02/28/23 07:52 Pulse 120 H 02/28/23 09:33 Resp 20 02/28/23 09:33 BP 132/81 02/28/23 07:52 Pulse Ox 98 02/28/23 09:33 PAWSS Have you Been Recently Intoxicated or Drunk Within the Last 30 days?: No Have you Ever Experienced Previous Episodes of Alcohol Withdrawal?: Yes Have you ever Experienced Withdrawal Seizures?: No Have you ever Experienced Delirium Tremens(DT)s?: Yes Have you ever undergone Alcohol Rehabilitation Treatment (i.e, inpt ot outpatient treatment programs)?: Yes Have you ever Experienced Blackouts?: No Have you ever Combined Alcohol with other Downers within the last 90 days?: No Have you ever Combined Alcohol with any other Substance of Abuse during the last 90 days?: No Evidence of Increased Autonomic Activity (i.e. HR>120, tremor, sweating, agitation, nausea)?: Yes Result: 4 Time Spent with Patient Time Spent with Patient: 35-49 minutes Time was spent: counseling the patient and care coordination
--- NOTE | 2023-02-28 10:29 | PT.INTREAT ---
Date of service: 02/28/23 Time of Service: 09:35 PT Notes Visit Reasons: Symtomatic anemia of acute GI blood loss Inpatient Physical Therapy Treatment Note [facility] Date: 02/28/23 PRECAUTIONS: Fall, standard, contact, activity as tolerated SUBJECTIVE: Patient supine in bed, just finished respiratory treatment, agreeable to therapy OBJECTIVE: PAIN: reports the stitch stings BED MOBILITY/TRANSFERS Rolling L/R: min assist with verbal cues to use legs as well as arms Supine-sit: modified independent with head of bed maximally elevated Sit-supine: min assist to put legs in bed Sit-stand: standby Stand-sit: standby Bed-Chair: standby Chair-bed: standby GAIT Assistive Device: FWW Weight bearing: full Assist: CGA Distance: 12 feet x5, 30 feet x1 Deviation: Patient repeatedly complains of dizziness, needs to sit suddenly. ASSESSMENT: Patient tolerates therapy well, is resting comfortably in bed at end of treatment with call bailey, tissues, water in easy reach. PLAN: Continue global strengthening per plan of care TREATMENT CODE/TIME: [id number] Gait 33 minutes beginning at 9:35
[2023-02-28] MEDS: Scopolamine 1 MG/3 DAYS PATCH TD (15:18)
--- NOTE | 2023-02-28 15:20 | W.PM.PROGNOT ---
Date of Service Date of service: 02/28/23 Time of Service: 15:20 Assessment and Plan Assessment and plan (1) Acute on chronic anemia: Status: Acute Assessment and plan: stable. monitor as outpatient (2) C. difficile colitis: Status: Resolved Assessment and plan: Abdominal pain is resolved. She is no longer having diarrhea or vomiting. She was successfully treated with monoclonal antibody. Nevertheless she should go home on a taper dose of vancomycin to prevent recurrence of her C. difficile. (3) Ascites due to chronic alcoholic hepatitis: Status: Chronic Assessment and plan: improved since her paracentesis. spironalactone restarted. site was leaking, Dr Noble inserted a stitch to stop the leakage. she can apply absorbent dressing if needed. stitch is absorbable so no suture removal needed. (4) Hypomagnesemia: Status: Acute Assessment and plan: Conts to require intermittent repletion. Continue to monitor (5) Alcohol abuse: Status: Chronic Assessment and plan: No evidence for acute alcohol withdrawal Likely contributing to her esophagitis/gastritis as well as her poor nutritional state. Encourage ongoing cessation. (6) DVT prophylaxis: Status: Acute Assessment and plan: SCDs Chemical DVT ppx is contraindicated in setting of suspected acute bleeding (7) Discharge planning issues: Status: Acute Assessment and plan: dc home tomorrow w/ home health nursing and PT and OT discussed with Dr Dumont Subjective Subjective Patient reports: still having pain, tolerating liquids well, tolerating a regular diet and afebrile; denies shortness of breath Interval history since last seen: tolerated working with physical therapy today Exam Const General: cooperative, comfortable, no acute distress and ill appearing chronically Nutritional Appearance: average body habitus Orientation: alert, awake and oriented x3 [facility] Head: normal to inspection, normocephalic and atraumatic Face and sinus: normal facial exam Eyes Pupils: PERRL Chest Chest: normal inspection of the chest Resp Effort & Inspection: normal respiratory effort Auscultation: clear to auscultation bilaterally Cardio Rate: regular rate Rhythm: regular rhythm GI Inspection: distended Palpation: firm and tender (generalized) Skin Lesions: other (paracentesis site with no surrounding erythema, suture) Neuro General: patient alert, patient awake, patient oriented x3 and tone normal Cognition: normal cognition Speech: speech normal Motor: muscle tone normal throughout Extrem General: normal to inspection, full ROM and no pedal edema Psych Appearance: other (groomed today) Mental Status: mental status grossly normal Speech and Movement: speech and movement normal Mood: irritable mood Affect: blunted Attitude: cooperative Thought Process: normal Thought Content: normal Objective Last Vital Signs Temp 36.4 C L 02/28/23 07:52 Pulse 120 H 02/28/23 09:33 Resp 20 02/28/23 09:33 BP 132/81 02/28/23 07:52 Pulse Ox 98 02/28/23 09:33 PAWSS Have you Been Recently Intoxicated or Drunk Within the Last 30 days?: No Have you Ever Experienced Previous Episodes of Alcohol Withdrawal?: Yes Have you ever Experienced Withdrawal Seizures?: No Have you ever Experienced Delirium Tremens(DT)s?: Yes Have you ever undergone Alcohol Rehabilitation Treatment (i.e, inpt ot outpatient treatment programs)?: Yes Have you ever Experienced Blackouts?: No Have you ever Combined Alcohol with other Downers within the last 90 days?: No Have you ever Combined Alcohol with any other Substance of Abuse during the last 90 days?: No Evidence of Increased Autonomic Activity (i.e. HR>120, tremor, sweating, agitation, nausea)?: Yes Result: 4 Time Spent with Patient Time Spent with Patient: 25-34 minutes Time was spent: preparing to see the patient(eg.review tests), obtaining and/or reviewing separately otained hiistory, indepentently interpreting results and counseling the patient
--- NOTE | 2023-02-28 18:53 | PT.INPN ---
Date of service: 02/28/23 Time of Service: 18:53 PT Notes Visit Reasons: Symtomatic anemia of acute GI blood loss Inpatient Physical Therapy Progress Note Date: 02/28/2023 Dates of Service: 02/18/2023 through 02/28/2023 Referring Doctor:Matthew Sierra,? ALONZO PT Orders: PT CONSULT: Eval/Treat. Precautions: Standard.? Frequent falls.? Activity as tolerated. Subjective: See most recent [employer] WORKER notes. Continues to refuse SNF placement. Objective: General Observation:?NT. See most recent B[employer] FORM[employer] WORKER notes. Mental Status: NT. See most recent BAB[employer] FORMULA WORKER notes. Pain: NT. See most recent BAB[employer] FORM[employer]A WORKER notes. ROM: Right Upper Extremity: ? Shoulder Flexion allows up to 150 degrees. Shoulder abduction allows up to 120 degrees. Elbow flexion WFL. Wrist flexion WFL. Functional opening and closing of hand WFL. Left Upper Extremity: ? Shoulder Flexion allows up to 150 degrees. Shoulder abduction allows up to 120 degrees. Elbow flexion WFL. Wrist flexion WFL. Functional opening and closing of hand WFL. Right Lower Extremity: Hip flexion allows up to 20 degrees. Hip abduction lacks the last 50% of AROM. Knee flexion 30-90 degrees. Knee extension -30 degrees.? Ankle dorsiflexion WFL. Ankle plantarflexion WFL. Left Lower Extremity: Hip flexion allows up to 20 degrees. Hip abduction lacks the last 50% of AROM. Knee flexion 30-90 degrees. Knee extension -30 degrees.? Ankle dorsiflexion WFL. Ankle plantarflexion WFL. Strength: Right Upper Extremity: Shoulder flexors 3-/5. Shoulder abductors 3-/5. Elbow flexors 4/5. Elbow extensors 4/5. Horticulture Teacher strong. Left Upper Extremity: Shoulder flexors 3-/5. Shoulder abductors 3-/5. Elbow flexors 4/5. Elbow extensors 4/5. Horticulture Teacher strong. Right Lower Extremity: Hip flexors 2-/5. Hip abductors 3-/5. Knee flexors 2-/5. Knee extensors 2-/5. Ankle dorsiflexors 2-/5. Ankle plantarflexors 2-/5. Left Lower Extremity: Hip flexors 2-/5. Hip abductors 3-/5. Knee flexors 2-/5. Knee extensors 2-/5. Ankle dorsiflexors 2-/5. Ankle plantarflexors 2-/5. Bed Mobility/Transfers: Rolling contact guard assist Supine to sit hand-held assist Sit to stand contact guard assist with FWW, cues provided for safety Stand to sit contact guard assist with FWW, cues provided for safety Bed to chair contact guard assist with FWW, cues provided for safety Gait: Up to 50 feet of level surface ambulation using FWW with contact guard assist. Reports fatigue and beginning heaviness in lateral abdominal area. Some leaking from paracentesis site remains. [facility] Melissa made aware. Balance: Static Sitting: Good Dynamic Sitting: Fair Static Standing: Fair Dynamic Standing: Fair Special Tests: Mobility Limitations Standardized Measure [facility]-PAC 6 clicks Basic Mobility Inpatient Short Form: Raw Score: 18 ? CMS Score: 47% deficit Informed Consent/Education:? Patient was instructed in purpose of PT consult and plan of care.? Agreeable to proceed with established PT POC to achieve personal goals. Assessment: Slow gains achived in therapy. Needs extensive encouragement to participate in PT. Dizziness limits ability to participate in PT. Patient presents with clinical signs and symptoms consistent with current/admitting diagnoses that have resulted to mobility limitations, gait instability, generalized weakness, and impairment of motor control as demonstrated by the following impairment level findings: 1.? Decreased strength to B UE/LE major muscle groups 2.? Impaired static and dynamic standing balance 3. Dizziness 4. Fatigue Impairments are contributing to the following functional limitations: 2.? Inability to safely ambulate due to admitting diagnoses and anxiety over increased dizziness 3.? Increase completion time for mobility ADL performance 4.? Increased fall risk Goals: Goals X1 week 1. Supine-Sit independent NOT MET, CONTINUE 2. Sit-Supine independent NOT MET, CONTINUE 3. Sit-Stand independent NOT MET, CONTINUE 4. Stand-Sit independent NOT MET, CONTINUE 5. Bed-Chair independent NOT MET, CONTINUE 6. Chair-Bed independent NOT MET, CONTINUE 7.? Independent gait on level surface with use of straight cane for at least 100 feet without report of pain nor dyspnea NOT MET, CONTINUE 8.? Independent stair negotiation while holding onto bilateral rails for at least 5 steps without report of pain nor dyspnea NOT MET, CONTINUE 9. Good static and dynamic standing balance/tolerance NOT MET, CONTINUE DISCHARGE RECOMMENDATIONS: [] ? Home with no services [] [X] ? Home with services.? Home when medically cleared by hospitalist.? Patient will benefit from home health PT services in order to progress mobility level using least restrictive assistive ambulatory device, assess home safety, identify additional equipment needs, and establish a functional maintenance program that will increase ability of patient to remain at home. [] ? Home with outpatient PT [] [] ? SNF for continued rehabilitation [] [] ? Medical Assistant Float [facility] [] [] ? SNF versus LTC based on ability to participate and progress [] TREATMENT CODE/TIME: MD Thank you for the opportunity to participate in the care of this patient. Tawana Cruz PT, DPT, CLT [facility] [place], [place]
[2023-02-28 19:41] VITALS: BP 122/72; PULSE 93; RESP 16; TEMP 36.6; O2SAT 95
--- NOTE | 2023-02-28 21:01 | PDOC.CMPRO ---
Date of service: 02/28/23 Time of Service: 21:01 Care Management Progress Note Progress Note Text Progress Note Text: S:Leticia was sitting up in bed when CM met with her. She was supposed to be discharged home today but pleaded with the provider for another day. She has been working with PT for the past couple of days and is doing better. She will have a resumption of her home health PT when discharged. Leticia still had drainage from her paracentesis site. A urostomy appliance was proposed to contain the excess drainage, but Leticia did not feel she could handle it. Dr. Noble came in and placed an absorbable suture over the opening today to seal the site. What small amount of drainage remains can be covered with a bandage.. A:Leticia is a 77 year old woman admitted on 02/16/23 with a GI Bleed P:Anticipate Leticia will be discharged home with a resumption of home health services, likely tomorrow. She would likely benefit from short term rehab in a SNF but, at this point, she is not willing. She will follow up with her community providers and plan of care as directed. Leticia will transport home via [facility] private vehicle coordinated by [facility]. CM will continue to support Leticia and any discharge planning needs.
[2023-02-28] MEDS: Ondansetron O.D.T. 4 MG TABEF PO (21:03)
[2023-02-28] MEDS: Mirtazapine 15 MG TAB 7.5 MG PO (21:03)
[2023-02-28] MEDS: Melatonin 3 MG TAB 6 MG PO (21:05)
[2023-02-28 22:33] VITALS: BP 128/85; PULSE 104; RESP 18; TEMP 36.5; O2SAT 98
[2023-03-01] MEDS: Ondansetron O.D.T. 4 MG TABEF PO ×2 (03:49→10:30)
[2023-03-01] MEDS: HYDROmorphone 2 MG TAB 1 MG PO ×2 (04:32→19:48)
--- NOTE | 2023-03-01 04:34 | NUR.NOTE ---
Nursing Note:Pt called reporting that her lower right abdomen was hard and painful. this rn came in to assess and found that the area was infact hard, discolored red/purple, and has clear boundaries and difference to the rest of abdomen. this is around the site that was stitched today to sea up leaking paracentesis site. Pain medication given, and charge nurse alerted with intentions of her alerting the risk control consultant dr. srinivasan.
[2023-03-01 07:15] VITALS: BP 132/84; PULSE 105; RESP 18; TEMP 36.7; O2SAT 96
[2023-03-01] MEDS: Budesonide 0.5 MG/2 ML UPD VIAL IH (07:57)
[2023-03-01] MEDS: Sucralfate 1 GM TAB PO ×2 (08:07→17:07)
[2023-03-01] MEDS: Pantoprazole 40 MG TABCR PO ×2 (08:07→19:48)
--- NOTE | 2023-03-01 08:54 | W.PM.PROGNOT ---
Date of Service Date of service: 03/01/23 Time of Service: 08:54 Assessment and Plan Assessment and plan (1) Abdominal ascites: Status: Acute Assessment and plan: I encouraged Leticia to get up and move around. This will help redistribute some of the anasarca, and help decrease some of the discomfort in the area. I do not see any obvious signs of infection. Unfortunately, Julia is now dealing with the sequelae of longstanding alcoholic cirrhosis with evolving ascites. I do not think another round of paracentesis will make much of a difference here, since she reaccumulates very quickly. We could use a drain in the peritoneal cavity for better control of the ascites, but this would be a purely palliative treatment. And since she had difficulty managing the ostomy device yesterday, I do not think she would be very happy with dealing with the surgical drain. For now, I would continue with basic soft tissue protective measures with regards to the anasarca and all of her body parts. Encouraged her to move around as much as possible. Subjective Subjective Interval history since last seen: Leticia complains of increased pain on her right flank. There is been no drainage from the paracentesis site since I placed a stitch yesterday. Exam GI Other: Her abdomen is soft, and feels like she is reaccumulating ascites. The right flank has anasarca, but I suspect is just peritoneal ascites tracking to a dependent portion. She actually has some on the left flank as well. Objective Last Vital Signs Temp 98.1 F 03/01/23 07:15 Pulse 105 H 03/01/23 07:15 Resp 18 03/01/23 07:15 BP 132/84 03/01/23 07:15 Pulse Ox 96 03/01/23 07:15 PAWSS Have you Been Recently Intoxicated or Drunk Within the Last 30 days?: No Have you Ever Experienced Previous Episodes of Alcohol Withdrawal?: Yes Have you ever Experienced Withdrawal Seizures?: No Have you ever Experienced Delirium Tremens(DT)s?: Yes Have you ever undergone Alcohol Rehabilitation Treatment (i.e, inpt ot outpatient treatment programs)?: Yes Have you ever Experienced Blackouts?: No Have you ever Combined Alcohol with other Downers within the last 90 days?: No Have you ever Combined Alcohol with any other Substance of Abuse during the last 90 days?: No Evidence of Increased Autonomic Activity (i.e. HR>120, tremor, sweating, agitation, nausea)?: Yes Result: 4 Time Spent with Patient Time Spent with Patient: <25 minutes Time was spent: preparing to see the patient(eg.review tests) and counseling the patient
[2023-03-01] MEDS: Venlafaxine 75 MG CAPCR PO (10:29)
[2023-03-01] MEDS: Metoprolol 50 MG TAB PO (10:29)
[2023-03-01] MEDS: valACYclovir 500 MG TAB PO (10:29)
[2023-03-01] MEDS: QUEtiapine 25 MG TAB 12.5 MG PO ×2 (10:30→19:49)
[2023-03-01] MEDS: Mirabegron 50 MG TABCR PO (10:30)
[2023-03-01] MEDS: Refresh PLUS Eye Drops 0.4ml 1 EACH OU ×3 (10:31→17:07)
--- NOTE | 2023-03-01 12:35 | PT.INTREAT ---
Date of service: 03/01/23 Time of Service: 12:20 PT Notes Visit Reasons: Symtomatic anemia of acute GI blood loss Inpatient Physical Therapy Treatment Note [facility] Date: 02/28/2023 PRECAUTIONS: Standard, Falls, Activity as tolerated SUBJECTIVE: Too tired to get out of bed. Did not sleep well last night, just needs some sleep. Indicated she is agreeable to do some UE /LE exercises in bed but not willing to walk or sit up in chair. Maybe will get up later. Having a lot of abdominal pain. Too tired to even get up to go to the restroom. OBJECTIVE: PAIN: Right abdominal pain. BED MOBILITY/TRANSFERS Willing to perform bed exercises only GAIT Refused ambulation THEREX: Performed ankle pumps x 15 reps, quad sets / glut sets x 12 reps for 3 second holds, supine marching x 12 reps, supine hip abd / adduction x 12 reps, as well as bilateral UE bicep curls x 12 reps, shoulder abd/adduction x 12 reps and punch ups x 11 reps. ASSESSMENT: Very limited motivation. Reminded patient that her doctor said she needs to keep moving and that she is only going to get more tired and weaker if she does not get out of bed. PLAN: Continue to encourage movement and independence with ADL activities such as going to the bathroom. TREATMENT CODE/TIME: 65890 x 1, 12:20 to 12:35 (15')
--- NOTE | 2023-03-01 14:03 | PGE_ITS ---
Date of Service Date of service: 03/01/23 Time of Service: 14:03 Assessment and Plan Assessment and plan (1) Acute on chronic anemia: Status: Acute Assessment and plan: stable. monitor as outpatient (2) Ascites due to chronic alcoholic hepatitis: Status: Chronic Assessment and plan: site was leaking, Dr Noble inserted a stitch to stop the leakage. drainage has stopped, but unfortunately she is re-accumulating fluid rapidly. lasix and spironalactone resumed stitch is absorbable so no suture removal needed. (3) Hypomagnesemia: Status: Acute Assessment and plan: Conts to require intermittent repletion. Continue to monitor (4) Alcohol abuse: Status: Chronic Assessment and plan: No evidence for acute alcohol withdrawal Likely contributing to her esophagitis/gastritis as well as her poor nutritional state. Encourage ongoing cessation. (5) DVT prophylaxis: Status: Acute Assessment and plan: SCDs Chemical DVT ppx is contraindicated in setting of suspected acute bleeding (6) Discharge planning issues: Status: Acute Assessment and plan: She is followed by palliative and measures are seeming futile at this point. We will ask palliative to readdress goals of care and limits of care and consider transitioning more to a comfort focused or hospice at this point. discussed with Dr Dumont Subjective Subjective Patient reports: nausea and afebrile Interval history since last seen: This morning Leticia is complaining of increased abdominal swelling and tenderness especially right lateral lower abdomen and nausea which is chronic for her she has not had any vomiting but poor p.o. intake. Since the stitch was inserted yesterday at her old paracentesis site she has not had any further leakage at the site Exam Const General: cooperative, comfortable, no acute distress and ill appearing chronically Nutritional Appearance: average body habitus Orientation: alert, awake and oriented x3 HENMT Head: normal to inspection, normocephalic and atraumatic Face and sinus: normal facial exam Eyes Pupils: PERRL Chest Chest: normal inspection of the chest Resp Effort & Inspection: normal respiratory effort Auscultation: clear to auscultation bilaterally Cardio Rate: regular rate Rhythm: regular rhythm GI Inspection: distended Palpation: firm (laterally) in the RLQ and in the RUQ and tender (right side) Skin Lesions: other (paracentesis site with no surrounding erythema, suture intact) Rashes: no rashes Neuro General: patient alert, patient awake, patient oriented x3 and tone normal Cognition: normal cognition Speech: speech normal Motor: muscle tone normal throughout Extrem General: normal to inspection, full ROM and no pedal edema Psych Appearance: other (groomed today) Mental Status: mental status grossly normal Speech and Movement: speech and movement normal Mood: irritable mood Affect: blunted Attitude: cooperative Thought Process: normal Thought Content: normal Objective Last Vital Signs Temp 36.7 C 03/01/23 07:15 Pulse 105 H 03/01/23 07:15 Resp 18 03/01/23 07:15 BP 132/84 03/01/23 07:15 Pulse Ox 96 03/01/23 07:15 PAWSS Have you Been Recently Intoxicated or Drunk Within the Last 30 days?: No Have you Ever Experienced Previous Episodes of Alcohol Withdrawal?: Yes Have you ever Experienced Withdrawal Seizures?: No Have you ever Experienced Delirium Tremens(DT)s?: Yes Have you ever undergone Alcohol Rehabilitation Treatment (i.e, inpt ot outpatient treatment programs)?: Yes Have you ever Experienced Blackouts?: No Have you ever Combined Alcohol with other Downers within the last 90 days?: No Have you ever Combined Alcohol with any other Substance of Abuse during the last 90 days?: No Evidence of Increased Autonomic Activity (i.e. HR>120, tremor, sweating, agitation, nausea)?: Yes Result: 4 Time Spent with Patient Time Spent with Patient: 25-34 minutes Time was spent: preparing to see the patient(eg.review tests), ordering medica tions,tests, procedures and counseling the patient
[2023-03-01] MEDS: Furosemide 40 MG/4 ML VIAL IVP (15:15)
[2023-03-01] MEDS: Spironolactone 50 MG TAB PO ×2 (15:15→19:48)
[2023-03-01 15:20] VITALS: BP 121/84; PULSE 87; TEMP 35.9; O2SAT 96
[2023-03-01] MEDS: Furosemide 40 MG TAB PO (17:06)
[2023-03-01] MEDS: Lidocaine 5% Patch 2 PATCH TP (19:50)
[2023-03-01 19:55] VITALS: BP 127/92; PULSE 90; RESP 16; TEMP 36.7; O2SAT 98
[2023-03-02 03:51] VITALS: BP 132/86; PULSE 99; RESP 18; TEMP 36.1; O2SAT 95
[2023-03-02] MEDS: Ondansetron O.D.T. 4 MG TABEF PO ×2 (05:03→12:39)
[2023-03-02 07:33] VITALS: BP 118/74; PULSE 93; TEMP 36.5; O2SAT 96
[2023-03-02] MEDS: Furosemide 40 MG TAB PO (08:09)
[2023-03-02] MEDS: Sucralfate 1 GM TAB PO ×2 (08:10→12:38)
[2023-03-02] MEDS: Spironolactone 50 MG TAB PO (08:10)
[2023-03-02] MEDS: Pantoprazole 40 MG TABCR PO (08:10)
[2023-03-02] MEDS: Mirabegron 50 MG TABCR PO (08:10)
[2023-03-02] MEDS: Psyllium PKT 1 EACH PO (08:10)
[2023-03-02] MEDS: Patch Removal 2 EACH TP (08:10)
[2023-03-02] MEDS: QUEtiapine 25 MG TAB 12.5 MG PO (08:10)
[2023-03-02] MEDS: Metoprolol 50 MG TAB PO (08:10)
[2023-03-02] MEDS: valACYclovir 500 MG TAB PO (08:11)
[2023-03-02] MEDS: Venlafaxine 75 MG CAPCR PO (08:11)
[2023-03-02] MEDS: Refresh PLUS Eye Drops 0.4ml 1 EACH OU ×2 (08:11→12:38)
[2023-03-02 08:50] VITALS: PULSE 96; RESP 1; RESP 20; O2SAT 95
[2023-03-02] MEDS: Albuterol/Ipratropium 3 ML UPD VIAL IH (08:50)
[2023-03-02 08:52] VITALS: PULSE 89; RESP 1; O2SAT 100
[2023-03-02] MEDS: Budesonide 0.5 MG/2 ML UPD VIAL IH (08:52)
--- NOTE | 2023-03-02 13:38 | PT.INTREAT ---
Date of service: 03/02/23 Time of Service: 10:54 PT Notes Visit Reasons: Symtomatic anemia of acute GI blood loss Inpatient Physical Therapy Treatment Note [facility] Date: 03/02/23 PRECAUTIONS: Fall, standard, contact, activity as tolerated. SUBJECTIVE: Patient is supine in bed, agreeable to therapy. OBJECTIVE: PAIN: 10/10 throughout abdoment, especially with movement. BED MOBILITY/TRANSFERS Rolling L/R: Standby Supine-sit: standby to mod assist Sit-supine: standby to min assist Sit-stand: CGA Stand-sit: CGA Bed-Chair: CGA Chair-bed: CGA GAIT Assistive Device: FWW Weight bearing: full Assist: CGA, wheelchair follow Distance: 12 feet x3, after which patient states she just doesn't have it today and is unwilling to go further. Deviation: Patient sits urgently and without much warning. THERACT: Transfer training including bed to chair, chair to bed; self care and hygiene tasks with therapist providing contact guard assist and coaching / problem solving. ASSESSMENT: I have concerns about this patient being able to manage at home, although I also find that she can do more than she believes. PLAN: Continue strengthening per plan of care until patient is medically cleared for discharge. TREATMENT CODE/TIME: 15348 Gait 12 minutes and 70064 Ther Act 14 minutes beginning at 10:54
--- NOTE | 2023-03-02 14:12 | W.PM.DS.N ---
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Diff colitis, chronic anemia, who presented to [facility] ED on 02/16/23 with c/o diffuse abdominal pain since as well as nausea. She had 3 bouts of diarrhea, she was asked about c diff and shes said she knows nothing about that, nor does she know if she finished the course of medication for that. The patient stated her Upper front teeth are painful and that she went to the dentist sometime last week and was told she had a dental infection but had not yet had a chance to take antibiotics for that. In the ED, she was found to be hemoccult negative but her hemoglobin went from 9.3 on 02/05 to 8.0 on 02/13 to 7.1 to 6.1 She also reportedly had a nontender abdomen in the ED. The patient was given pRBCs, general surgery was consulted with no immediate plans for endoscopy, and she was admitted to the hospital ICU for further testing and treatment. She has poor IV access and a PICC was placed. She pulled that out and an IJ was placed and sutured in. She eventually removed that line as well. She received magnesium and potassium supplements. She was given vancomycin and flagyl IV. and started on probiotics. She frequents the hospital and has very poor health. While here she was seen by surgery and her belly was taped, she was also seen by palliative care. She did participate on and off with PT. She was discharged to home with instructions to complete the course of Dificid 200 mg twice a day for 10 days. She is to continue furosemide twice a day as well as pantoprazole twice a day. She was stable and agreed with the plan. She should have resumption of home health services. ? Home Meds and New Rx's Prescriptions: New furosemide 40 mg Tablet 40 mg PO BID@0830,1600 Qty: 80 0RF pantoprazole 40 mg Tablet,Delayed Release (Dr/Ec) 40 mg PO BID@0730,2000 Qty: 80 0RF Continued Xiidra 5 % dropperette 1 drp ophthalmic (eye) BID Rx Instructions: administer approximately 12 hours apart budesonide [Pulmicort] 0.5 mg/2 mL suspension for nebulization 0.5 mg inhalation DAILY Qty: 60 5RF Patient Comments: pt states meds come in blister pack labeled daily by [employer] and she takes them but doesn't know the names furosemide 20 mg tablet See Rx Instructions PO BID Qty: 180 3RF Patient Comments: pt states meds come in blister pack labeled daily by [employer] and she takes them but doesn't know the names Rx Instructions: orally twice a day; 3 tabs (60mg) in AM and 2 tabs(40mg in afternoon; ipratropium-albuterol 0.5 mg-3 mg(2.5 mg base)/3 mL solution for nebulization 3 ml inhalation Q6H PRN Patient Comments: pt states meds come in blister pack labeled daily by [employer] and she takes them but doesn't know the names Myrbetriq 50 mg tablet extended release 24 hr 50 mg PO DAILY Qty: 30 12RF albuterol sulfate [Ventolin HFA] 90 mcg/actuation HFA aerosol inhaler 2 puff inhalation QID PRN (Reason: shortness of breath or wheezing) Qty: 8.5 1RF amlodipine 10 mg tablet 10 mg PO DAILY Qty: 90 3RF Patient Comments: pt states meds come in blister pack labeled daily by [employer] and she takes them but doesn't know the names buspirone 5 mg tablet 5 mg PO BID Qty: 60 5RF Patient Comments: pt states meds come in blister pack labeled daily by [employer] and she takes them but doesn't know the names folic acid 1 mg tablet 1 mg PO DAILY Qty: 90 3RF Patient Comments: pt states meds come in blister pack labeled daily by [employer] and she takes them but doesn't know the names melatonin 3 mg capsule 6 mg PO HS Qty: 180 3RF Patient Comments: pt states meds come in blister pack labeled daily by [employer] and she takes them but doesn't know the names metoprolol tartrate 50 mg tablet 50 mg PO DAILY Qty: 90 3RF Patient Comments: pt states meds come in blister pack labeled daily by [employer] and she takes them but doesn't know the names mirtazapine 7.5 mg tablet 7.5 mg PO QHS Qty: 90 4RF Patient Comments: pt states meds come in blister pack labeled daily by [employer] and she takes them but doesn't know the names sucralfate 1 gram tablet 1 g PO BID Qty: 60 11RF Patient Comments: pt states meds come in blister pack labeled daily by [employer] and she takes them but doesn't know the names thiamine HCl (vitamin B1) 100 mg tablet 100 mg PO DAILY Qty: 90 3RF Patient Comments: pt states meds come in blister pack labeled daily by [employer] and she takes them but doesn't know the names valacyclovir [Valtrex] 500 mg tablet 500 mg PO DAILY Qty: 90 3RF Patient Comments: pt states meds come in blister pack labeled daily by [employer] and she takes them but doesn't know the names Rx Instructions: Take 500 mg BID for 3 days, then take daily cyanocobalamin (vitamin B-12) [Vitamin B-12] 500 mcg tablet 1,000 mcg PO DAILY Qty: 180 3RF Patient Comments: pt states meds come in blister pack labeled daily by [employer] and she takes them but doesn't know the names ferrous sulfate 325 mg (65 mg iron) tablet 325 mg PO BID Qty: 180 3RF Patient Comments: pt states meds come in blister pack labeled daily by [employer] and she takes them but doesn't know the names Rx Instructions: do not take within 2 hours of antibiotics multivitamin [Multiple Vitamins] Tablet 1 tab PO DAILY Qty: 90 3RF Patient Comments: pt states meds come in blister pack labeled daily by [employer] and she takes them but doesn't know the names quetiapine 25 mg tablet See Rx Instructions PO BID Qty: 60 5RF Patient Comments: pt states meds come in blister pack labeled daily by [employer] and she takes them but doesn't know the names Rx Instructions: 0.5 tab PO twice a day; spironolactone [Aldactone] 50 mg tablet 50 mg PO BID Qty: 180 3RF Patient Comments: pt states meds come in blister pack labeled daily by [employer] and she takes them but doesn't know the names venlafaxine 75 mg capsule,extended release 24hr 75 mg PO DAILY Qty: 90 3RF Hold Instructions: Home Medication placed on hold at Doctor's office Patient Comments: pt states meds come in blister pack labeled daily by [employer] and she takes them but doesn't know the names. aspirin 81 mg tablet,delayed release (DR/EC) 81 mg PO DAILY Qty: 90 3RF Patient Comments: pt states meds come in blister pack labeled daily by [employer] and she takes them but doesn't know the names ondansetron HCl 4 mg tablet 4 mg PO Q6H PRN (Reason: nausea and vomiting) Qty: 20 1RF lorazepam 0.5 mg tablet 0.5 mg PO QHS PRN (Reason: anxiety) Qty: 20 0RF fluticasone propionate 50 mcg/actuation spray,suspension 2 spray NS daily prn Qty: 16 5RF Patient Comments: pt states meds come in blister pack labeled daily by [employer] and she takes them but doesn't know the names carboxymethylcellulose sodium [Refresh Plus] 0.5 % Dropperette 1 drp OU Q4H WHILE AWAKE Qty: 30 0RF Patient Comments: pt states meds come in blister pack labeled daily by [employer] and she takes them but doesn't know the names pantoprazole 40 mg Tablet,Delayed Release (Dr/Ec) 40 mg PO BID@ Qty: 60 0RF Patient Comments: pt states meds come in blister pack labeled daily by [employer] and she takes them but doesn't know the names magnesium oxide 400 mg magnesium tablet 400 mg PO BID Qty: 30 0RF Dificid 200 mg tablet 200 mg PO Q12H Qty: 20 0RF loperamide 2 mg Capsule 2 mg PO Q4H PRN PRNQty: 12 0RF lidocaine 5 % Adhesive Patch,Medicated 2 patch topical Q24H Qty: 30 0RF metronidazole 500 mg tablet 500 mg PO TID Qty: 30 0RF Saccharomyces boulardii [Florastor] 250 mg capsule 250 mg PO BID Qty: 20 0RF Discontinued fosfomycin tromethamine 3 gram packet 3 g PO ONCE Qty: 1 0RF Discharge Instructions Instructions: C. Diff (Clostridioides Difficile) Infection (DC) Additional Instructions: See your PCP as planned. Stand Alone Forms: Nursing Discharge Form Referrals: Lavelle Galindo MD [Primary Care Provider] - 03/14/23 11:00 am Activity:: Activity as Tolerated Equipment/Supplies:: No Equipment Needed Diet:: As Tolerated Discharge Orders Discharge Orders: Discharge Order (Routine); Ordered 03/02/23 Ordered By: Jerica Diez Discharge Data Discharge Date/Time-TO BE ENTERED AT DEPARTURE: 03/02/23 15:23 Discharge Comment: home with HH DS: Summary Time Spent with Patient providing and/or coordinating discharge services: Greater than 30 minutes Status at Discharge Functional status at discharge: uses cane/walker Overall status at discharge: patient is back to baseline Mental Status: mental status grossly normal Speech and Movement: speech and movement normal Mood: congruent mood Affect: normal affect Exam Narrative Exam Narrative: General: Lying supine. NAD. Appears tired. Cardiovascular: RRR, no murmur Lungs: CTAB Gastrointestinal: soft, NT, + fluid wave. Extremities: no edema BLEs or calf pain. Psych Mental Status: mental status grossly normal Speech and Movement: speech and movement normal Mood: congruent mood Affect: normal affect DS: Data Vitals/I&O Vitals and I&O: Vital Signs Temperature 36.5 C 03/02/23 07:33 Temperature Source Tympanic 03/02/23 07:33 Pulse 89 03/02/23 08:52 Pulse Rhythm Irregular 03/02/23 08:00 Pulse 84 02/20/23 02:01 Respiratory Rate 20 03/02/23 08:50 Respiratory Effort Normal, Non-Labored 03/02/23 08:00 Respiratory Depth Normal 03/02/23 08:00 Respiratory Pattern Normal 03/02/23 08:00 Blood Pressure 118/74 03/02/23 07:33 Blood Pressure Mean 70 02/20/23 02:00 Blood Pressure Position Supine 02/17/23 07:42 Pulse Oximetry 100 03/02/23 08:52 Oxygen Delivery Method Room Air 03/02/23 08:50 Oxygen Flow Rate 0 03/02/23 08:50 Fraction of Inspired Oxygen (FIO2) 93 02/26/23 00:07 Pain Level 6 03/02/23 07:33 Comment Pt. asleep at this time. Pt. doens't display any s/s of pain at this time. 02/22/23 07:55 Intake & Output 03/01/23 03/02/23 03/02/23 23:59 11:59 23:59 Intake Total 150 / 150 Balance 150 / 150 Intake: Oral 150 / 150 Injectate 0 / 0 Right Lateral Abdomen 0 / 0 Other: Urine Color Yellow Urine Appearance Clear Clear Comment brief changed pt incontinent of urine. Stool Size Smear Stool Characteristics Formed Voiding Methods Diaper Diaper Incontinent Incontinent PFSH All Active Problems (Updated 03/04/23 @ 19:55 by Jerica Diez NP) Discharge planning issues (Acute) DVT prophylaxis (Acute) Hypomagnesemia (Chronic) Acute on chronic anemia (Acute) Ascites due to chronic alcoholic hepatitis (Chronic) Colitis due to Clostridium difficile (Acute) Anemia (Chronic) Portal hypertension (Chronic) Macrocytic anemia (Acute) Lung cancer (Chronic) RUL Pneumothorax after biopsy (Acute) 01/19/23 Per [facility] CXR. -hb Soft tissue mass (Acute) 12/29/22 PET at [facility] Avid lobulated pre-sacral. -hb Hypokalemia (Acute) Alcohol abuse (Chronic) Multiple rib fractures (Chronic) 03/11/19 [facility] Alcohol withdrawal (Acute) Hypomagnesemia (Acute) Breast nodule (Acute) Sleep disturbance (Acute) Sinus tachycardia (Acute) High anion gap metabolic acidosis (Acute) Elevated blood pressure reading with diagnosis of hypertension (Acute) Pincer nail deformity (Acute) Insomnia (Acute) Thrombocytopenia (Chronic) Elevated bilirubin (Acute) Mixed stress and urge urinary incontinence (Acute) Thyroid nodule (Acute) Anxiety (Chronic) Adverse effect of metronidazole (Acute) Medication monitoring encounter (Acute) Advance care planning (Acute) Cirrhosis of liver with ascites (Acute) Animal bite of right hand with infection (Acute) Umbilical hernia (Acute) Hyperbilirubinemia (Acute) Shortness of breath (Acute) Elevated blood pressure reading without diagnosis of hypertension (Acute) Left arm pain (Acute) Ambulatory dysfunction (Acute) Incontinence (Acute) Anorexia (Acute) Headache (Acute) Depression (Chronic) Chest pain (Acute) Foot pain, right (Acute) Tendinitis of left rotator cuff (Acute) Macrocytosis (Acute 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 Leukopenia (Acute) Headache (Acute) Epigastric abdominal pain (Acute) Calcific tendinitis of left shoulder (Acute) Pulmonary mass (Acute) spiculated mass Pneumonia (Acute) Depression with suicidal ideation (Acute) Alcohol abuse (Chronic) Diarrhea (Acute) Epigastric pain (Acute) Dehydration (Acute) Difficult intravenous access (Acute) Multiple IV attempts, usually requires ultrasound placement. PTSD (post-traumatic stress disorder) (Acute) Anemia (Chronic) Depression (Chronic) Foot pain, right (Acute) T12 compression fracture (Acute) Presacral mass (Chronic) Deviated nasal septum (Acute) Frequent falls (Chronic) Head injury (Acute) Ambulatory dysfunction (Chronic) Shoulder pain, right (Chronic) Suicidal ideation (Acute) Dry eye (Acute) Pruritus (Acute) Dystrophic nail (Acute) AMBER (acute kidney injury) (Acute) Iron deficiency anemia (Chronic) Fall (Acute) Atelectasis of left lung (Chronic) Advance directive on file (Acute) Nodule of upper lobe of right lung (Acute ~09/13/18) 01/19/23 Increased in size per [facility]. -hb 09/13/18 [facility]; 12mm SPICULATED -kb Cataract (Chronic 11/07/15) Hypertension (Chronic) high today; she will check readings at home Hyperlipidemia (Chronic) Back pain, chronic (Chronic) Depression (Chronic) Osteopenia (Chronic) Medical History (Updated 03/04/23 @ 19:55 by Jerica Diez NP) Adjustment disorder with depressed mood Alcoholic ketosis Anemia Cervical radicular pain neck pain and [facility]D [facility] 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) pls refrain from alcohol Chronic alcoholism she will not stop drinking unless she checks with me, so that we can help her avert withdrawal I do not think she is capable on her own--she would need placement to achieve required goal of 3 months of sobriety Chronic diarrhea Closed right humeral fracture Corneal ulcer, right (~08/23/18) 08/23/18; [facility]-kb Fracture of humerus, left, closed Genital herpes simplex recurrent gential; suppressive Valtrex GERD (gastroesophageal reflux disease) GI bleed (12/20/16) Hypertension Hypokalemia Hypomagnesemia Incidental lung nodule, greater than or equal to 8mm 1cm, spiculated, stable for many years, recommend f/u in 6 mo Non-cardiac chest pain (09/21/16) [facility] 09/21/16 NEGATIVE MP Osteoarthritis Palliative care patient (03/21/17) Pancreatitis, alcoholic, acute Peripheral edema Photophobia of right eye Pleural effusion on left 03/11/19 [facility] Presacral mass (~09/15/18) 09/15/18 [facility] Sciatica right, epidural injuections [facility] Tubular adenoma of colon (01/28/17) Urinary incontinence 01/24/13 urethral suspension and sling at [facility] (bladder suspension 1991) 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 Bladder repair. Repair bladder injury, simple S/P laparoscopic cholecystectomy (~05/19/22) Family History Mother No problems noted. Father , DROWNED at age 50. No problems noted. Sister Personal history of malignant neoplasm MELANOMA Sister No problems noted. Grandfather Personal history of malignant neoplasm STOMACH Grandfather Personal history of malignant neoplasm PROSTATE Grandmother Heart disease NE Acute ill-defined cerebrovascular disease Grandmother Personal history of malignant neoplasm UTERINE Aunt , NE Heart disease NE Aunt , NE Heart disease Brother No problems noted. Social History Smoking/Tobacco Use Status: Never Smoking risk assessment performed?: Yes Alcohol Intake: current Alcohol Intake frequency: 3 or more drinks per day Alcohol type: hard liquor Drug use: Never Substance use type: does not use Details: Last alcoholic drink Mike zhong, 2 days ago Housing: apartment Current gender identity: female Do you feel safe at home: Yes Do you feel safe in your relationship?: No Additional Social history: Has 1 dog, 4 cats. Time Spent with Patient Time Spent with Patient: 70-84 minutes4 Time was spent: preparing to see the patient(eg.review tests), ordering medications,tests, procedures, referring, communicating with other health managed care specialist, indepentently interpreting results, counseling the patient and care coordination
--- NOTE | 2023-03-02 17:41 | PDOC.CMDIS ---
Date of service: 03/02/23 Time of Service: 17:41 LACE Index Scoring Tool Questions: Length of Stay (in days): 14 or more Was the patient admitted via the E.D.?: Yes Comorbidities: Any Tumor and Liver or Renal Disease E.D. Visits: 14 Answers: Total Score: 19 Risk of Readmission: High Risk Care Management Discharge Plan Reason for Hospitalization: GI Bleed Discharge Plan: Leticia returned home today with a resumption of HH RN, PT, OT. CM coordinated her transport home via [employer] w/c van. She will follow up with her PCP, palliative care, and her discharge plan of care. CM discussed the option of going to a SNF upon discharge, which she declined. She was agreeable to returning home. Patient/Family Education Needs: Review discharge instructions and limitations, discussion of self care needs and goals of care. Services Needed at Discharge: Home Health Care Services (resumption of HH RN, PT, OT) and Transportation ([facility] w/c van)
--- NOTE | 2023-03-08 10:44 | PT.INDS ---
Date of service: 03/02/23 PT Notes Visit Reasons: Symtomatic anemia of acute GI blood loss Inpatient Physical Therapy Discharge Summary Date: 03/02/2023 Dates of Service:? 02/18/2023 through 03/02/2023 This is a clinical summary of care provided for the duration of dates listed above. No charge was made in the completion of this documentation. Referring Doctor:?Kimmy Sierra,? [employer] AUDITOR PT Orders: PT CONSULT: Eval/Treat. Precautions: Standard.? Frequent falls.? Activity as tolerated. Subjective: See most recent MODEL TECHNICIAN notes.? Continues to refuse SNF placement. Objective: General Observation:?NT. See most recent MODEL TECHNICIAN notes. Mental Status: NT. See most recent MODEL TECHNICIAN notes. Pain: NT. See most recent MODEL TECHNICIAN notes. ROM: Right Upper Extremity: ? Shoulder Flexion allows up to 150 degrees. Shoulder abduction allows up to 120 degrees. Elbow flexion WFL. Wrist flexion WFL. Functional opening and closing of hand WFL. Left Upper Extremity: ? Shoulder Flexion allows up to 150 degrees. Shoulder abduction allows up to 120 degrees. Elbow flexion WFL. Wrist flexion WFL. Functional opening and closing of hand WFL. Right Lower Extremity: Hip flexion allows up to 20 degrees. Hip abduction lacks the last 50% of AROM. Knee flexion 30-90 degrees. Knee extension -30 degrees.? Ankle dorsiflexion WFL. Ankle plantarflexion WFL. Left Lower Extremity: Hip flexion allows up to 20 degrees. Hip abduction lacks the last 50% of AROM. Knee flexion 30-90 degrees. Knee extension -30 degrees.? Ankle dorsiflexion WFL. Ankle plantarflexion WFL. Strength: Right Upper Extremity: Shoulder flexors 3-/5. Shoulder abductors 3-/5. Elbow flexors 4/5. Elbow extensors 4/5. Dater Assembler strong. Left Upper Extremity: Shoulder flexors 3-/5. Shoulder abductors 3-/5. Elbow flexors 4/5. Elbow extensors 4/5. Dater Assembler strong. Right Lower Extremity: Hip flexors 2-/5. Hip abductors 3-/5. Knee flexors 2-/5. Knee extensors 2-/5. Ankle dorsiflexors 2-/5. Ankle plantarflexors 2-/5. Left Lower Extremity: Hip flexors 2-/5. Hip abductors 3-/5. Knee flexors 2-/5. Knee extensors 2-/5. Ankle dorsiflexors 2-/5. Ankle plantarflexors 2-/5. Bed Mobility/Transfers: Rolling contact guard assist Supine to sit hand-held assist Sit to stand contact guard assist with FWW,? cues provided for safety Stand to sit contact guard assist with FWW,? cues provided for safety Bed to chair contact guard assist with FWW,? cues provided for safety Gait: Up to 50 feet of level surface ambulation using FWW with contact guard assist.? Reports fatigue and beginning heaviness in lateral abdominal area.? Some leaking from paracentesis site remains.? [facility] Nurse Melissa made aware.? Balance: Static Sitting: Good Dynamic Sitting: Fair Static Standing: Fair Dynamic Standing: Fair Assessment: Slow gains achieved in therapy.? Needs extensive encouragement to participate in PT. Report of dizziness and fatigue limit ability to participate in PT.? Patient presents with clinical signs and symptoms consistent with current/admitting diagnoses that have resulted to mobility limitations, gait instability, generalized weakness, and impairment of motor control as demonstrated by the following impairment level findings: 1.? Decreased strength to B UE/LE major muscle groups 2.? Impaired static and dynamic standing balance 3.? Dizziness 4.? Fatigue Impairments are contributing to the following functional limitations: 2.? Inability to safely ambulate due to admitting diagnoses and anxiety over increased dizziness 3.? Increase completion time for mobility ADL performance 4.? Increased fall risk Goals: Goals X1 week 1. Supine-Sit independent NOT MET,? CONTINUE with HH PT 2. Sit-Supine independent NOT MET,? CONTINUE with HH PT 3. Sit-Stand independent NOT MET,? CONTINUE with HH PT 4. Stand-Sit independent NOT MET,? CONTINUE with HH PT 5. Bed-Chair independent NOT MET,? CONTINUE with HH PT 6. Chair-Bed independent NOT MET,? CONTINUE with HH PT 7.? Independent gait on level surface with use of straight cane for at least 100 feet without report of pain nor dyspnea NOT MET,? CONTINUE with HH PT 8.? Independent stair negotiation while holding onto bilateral rails for at least 5 steps without report of pain nor dyspnea NOT MET,? CONTINUE with HH PT 9. Good static and dynamic standing balance/tolerance NOT MET,? CONTINUE with HH PT DISCHARGE RECOMMENDATIONS: [] ? Home with no services [] [X] ? Home with services.? Home when medically cleared by hospitalist.? Patient will benefit from home health PT services in order to progress mobility level using least restrictive assistive ambulatory device, assess home safety, identify additional equipment needs, and establish a functional maintenance program that will increase ability of patient to remain at home. [] ? Home with outpatient PT [] [] ? SNF for continued rehabilitation [] [] ? [facility] [] [] ? SNF versus LTC based on ability to participate and progress [] TREATMENT CODE/TIME: [place] Thank you for the opportunity to participate in the care of this patient. Tawana Cruz PT, DPT, CLT [facility] [place], [place]
== END 2023-03-02 15:23 | disposition home health service (06) | DRG 811 ==
LOC: ER 12:35 → ICU 12:54 → MS 02-20 07:33
PROVIDERS: Family Medicine; Internal Medicine; Surgery; Admitting Provider Internal Medicine; Emergency Provider Physician Assistant; PCP Family Medicine; Visit Provider Internal Medicine
PROC: 0W9G3ZZ Drainage of Peritoneal Cavity, Percutaneous Approach (ICD-10-PCS; CPT 49082; principal; 2023-02-24 12:30)
DX: D62 Acute posthemorrhagic anemia (principal); K20.81 Other esophagitis with bleeding; K29.21 Alcoholic gastritis with bleeding; K29.81 Duodenitis with bleeding; K76.6 Portal hypertension; A04.72 Enterocolitis due to Clostridium difficile, not specified as recurrent; C34.11 Malignant neoplasm of upper lobe, right bronchus or lung; C79.89 Secondary malignant neoplasm of other specified sites; D61.818 Other pancytopenia; D53.9 Nutritional anemia, unspecified; D72.819 Decreased white blood cell count, unspecified; D69.6 Thrombocytopenia, unspecified; E83.42 Hypomagnesemia; E87.6 Hypokalemia; G47.00 Insomnia, unspecified; E04.1 Nontoxic single thyroid nodule; N39.46 Mixed incontinence; F41.9 Anxiety disorder, unspecified; K74.60 Unspecified cirrhosis of liver; Z66 Do not resuscitate; F32.A Depression, unspecified; F43.10 Post-traumatic stress disorder, unspecified; R29.6 Repeated falls; E78.5 Hyperlipidemia, unspecified; I10 Essential (primary) hypertension; H54.61 Unqualified visual loss, right eye, normal vision left eye; R19.09 Other intra-abdominal and pelvic swelling, mass and lump; K70.11 Alcoholic hepatitis with ascites; F10.10 Alcohol abuse, uncomplicated
CPT/HCPCS: 36558; 76937; 49083; 36415; 36569; 36592; 71045; 72197; 80048; 80053; 82805; 83690; 86850; 86900; 86901; 86920; 87077; 87493; 93005; 96365; 96366; 96368; 96375; 97110; 97116; 97162; 97530; 99222; 99231; 99232; 99285; 70450; 74019; 74176; 74177; 80320; 81003; 81015; 82140; 82607; 82728; 83540; 83550; 83605; 83735; 84132; 84466; 85014; 85018; 85025; 85045; 85610; 87086; 87186; 93010; 94640; 94668; 94760; 99233; 99239; 99291; J0131; J0565; J0780; J1170; J1940; J1941; J2405; J2765; J3475; J3480; J3490; J7620; J7626; P9016; Q9967

== ENCOUNTER 2023-03-04 05:21 | Inpatient (IN) | payer MEDICARE, SELFPAY ==
[2023-03-04] VITALS (59 sets, daily range): BP systolic 75–149; BP diastolic 53–102; PULSE 98–121; RESP 1–38; TEMP 35.5–36.7; O2SAT 91–99
--- NOTE | 2023-03-04 06:00 | DI.RAD_ITS ---
Exam(s) XR PELVIS AP EXAM: XR PELVIS AP CLINICAL HISTORY: fall. TECHNIQUE: 2D digital imaging was performed. COMPARISON: MR MR PELVIS WO/W from 02/21/2023 FINDINGS: BONES: No acute fracture is present. No bony destructive lesion is seen. JOINTS: No dislocation present. No joint space narrowing is present. Mild acetabular spurring. SOFT TISSUE: Normal. IMPRESSION: Degenerative changes. No acute abnormality. DATA REPOSITORY: RADIATION DOSE DELIVERED:
--- NOTE | 2023-03-04 06:00 | DI.RAD_ITS ---
Exam(s) XR CHEST 1V IN DI DEPT EXAM: XR CHEST 1V IN DI DEPT CLINICAL HISTORY: fall TECHNIQUE: 2D digital imaging was performed. COMPARISON: CR,XR XR PORTABLE CHEST AP from 02/13/2023 CR XR PORTABLE CHEST AP POST LINE from 02/18/[address] ABDOMEN PELVIS W from 02/23/2023 FINDINGS: Monitoring leads overlie the chest. LUNGS: Chronic fibrotic changes. Minimal blunting at the left costophrenic angle. HEART: Enlarged, unchanged. AORTA: Ectatic. BONES: Old left lower rib fractures, seen on prior CT. No grossly displaced acute fracture. Soft tissues: Unremarkable. IMPRESSION: No acute findings. DATA REPOSITORY: RADIATION DOSE DELIVERED:
--- NOTE | 2023-03-04 06:00 | DI.CT_ITS ---
Exam(s) CT HEAD WO EXAM: CT HEAD WO CLINICAL HISTORY: fall head injury. TECHNIQUE: Imaging Protocol: Axial computed tomography images with coronal and sagittal reformatted images were created and reviewed COMPARISON: CT CT HEAD - STROKE PROTOCOL from 02/23/2023 FINDINGS: Ventricles and Extra axial spaces: Normal in size and morphology for the degree of atrophy. Hemorrhage: None. Cerebral parenchyma: No evidence of acute infarct or mass. Moderate severe atrophy. Mild white matte r changes of small vessel disease. Midline shift: None. Brainstem/Cerebellum: Normal. Calvarium: Normal. Visualized Paranasal sinuses/Mastoids: Some fluid inferior left mastoid air cells. Soft Tissues: Unremarkable. IMPRESSION: No acute intracranial process. RADIATION DOSE DELIVERED: 688.89mGy.cm Total DLP DATA REPOSITORY: All CT scans at this facility are submitted to the National Radiology Data Registry (NRDR) Dose Index Registry (DIR) with the [employer] (ACR). RADIATION OPTIMIZATION: All CT scans at this facility use at least one of these dose optimization te chniques: automated exposure control; mA and/or kV adjustment per patient size (includes targeted exa ms where dose is matched to clinical indication); or iterative reconstruction.
[2023-03-04] MEDS: Normal Saline 1,000 ML 1000 ML IV (06:10)
[2023-03-04 06:17] LABS: Abs Immature Grans 0.02 10^3/uL (0.0-0.06); Absolute Basophil Count 0.02 10^3/uL (0.0-0.2); Absolute Eosinophil Count 0.01 10^3/uL (0.0-0.7); Absolute Lymphocyte Count 0.78 10^3/uL (1.2-3.4); Absolute Monocyte Count 0.23 10^3/uL (0.1-0.8); Absolute Neutrophil Count 2.58 10^3/uL (1.2-6.7); Basophils % 0.5; Eosinophils % 0.3; HCT 29.7 % (36.0-46.0); HGB 9.2 g/dL (11.2-15.7); Immature Grans % 0.5; Lymphocytes % 21.4; MCH 32.5 pg (27.0-33.0); MCV 105 fL (80-95); MPV 10.1 fL (8.0-11.0); Monocytes % 6.3; Platelet Count 192 10^3/uL (130-400); RBC 2.83 10^6/uL (3.93-5.22); RDW 19.2 % (11.7-14.6); RDW-SD 73.9 fL; WBC 3.64 10^3/uL (4.4-10.8)
--- NOTE | 2023-03-04 06:24 | W.ED.GENAD ---
Discharge Plan Disposition Patient Disposition: Admit to [facility] Discharge Details Chief Complaint: GenMedical Clinical Impression: Hypomagnesemia, Dehydration, C. difficile diarrhea, Hypotension Admit Date/Time: 03/04/23 07:46 Admit Provider: Laly Dumont Attending Provider: Laly Dumont Primary Care Provider: Lavelle Galindo ED Provider: Jefferson Tai Medical Decision Making Patient likely dehydrated. She is having multiple episodes of diarrhea and when I questioned her about her fluid intake she stated she had a cup of monica [place] for the entirety of the day. She has had episodes of hypotension in the ED while laying supine. This is most likely the etiology of her fall. May not have been purely mechanical and there may have been a component of hypotension. Also given her history we will check for anemia. She has anemia at baseline and perhaps this is worsening. Also electrolyte abnormalities she is noted to be hypomagnesemic. CT brain for the head injury while minimal in appearance this patient most certainly is at increased risk for bleeding. Also chest and pelvis x-ray given the fall. However on exam she does not have any rib tenderness or pelvic instability hip tenderness. Generally is patient just appears weak and dehydrated most likely secondary to diarrhea and poor p.o. intake fluids. Patient reports no alcohol intake since being discharged from the hospital Patient's likely disposition will be hospitalization as she would not be a safe discharge from the ED. Differential Diagnosis Differential Diagnosis: Electrolyte abnormalities/dehydration/anemia/head injury Medical Records Medical records reviewed: Yes I reviewed the patient's medical records. Lab Data Lab results reviewed: Yes I reviewed the patient's lab results. HPI General Date/Time Provider Initiated Documentation: 03/04/23 06:01. HPI Narrative: Patient with a longstanding history of alcohol abuse and with a recent discharge from this hospital now presents status post mechanical fall. Per the patient she lives at home alone with her animals. She contacted EMS at least once EMS medical alert. EMS went to the house to assist the patient by lifting her but refused transport to the ED. Patient tells me that one of the times EMS came to the house they left the light on in the living room and the patient got up to turn the light off and that is when she had a mechanical fall. Impacting the right side of her head. She could not get up she used her medical alarm. Patient transported via EMS to the hospital. Patient complains of pain over the right head pain. The right hip pain the bilateral knees. Also complains of multiple bouts of watery diarrhea. Known to have C. difficile. Patient is a chronic cough alcoholic but states that she is not ingested alcohol through weeks. States that she has a sister that lives 1 mile away that checks on her every other day and helps her feed her animals. Otherwise she lives at home alone. States that if she runs out of alcohol she gets a taxi to go buy some. Patient is DNR and DNI per [facility] form from 2021 Related Data Home Medications Medication Instructions Recorded Confirmed carboxymethylcellulose sodium 0.5 1 drp OU Q4H WHILE AWAKE #30 ea 06/20/19 03/04/23 % eye drops in a dropperette (Refresh Plus) lifitegrast 5 % eye drops in a 1 drp ophthalmic (eye) BID 08/05/20 03/04/23 dropperette (Xiidra) ipratropium 0.5 mg-albuterol 3 mg 3 ml inhalation Q6H PRN 12/25/21 03/04/23 (2.5 mg base)/3 mL nebulization soln albuterol sulfate 90 mcg/actuation 2 puff inhalation QID PRN 02/08/22 03/04/23 aerosol inhaler (Ventolin HFA) shortness of breath or wheezing #8.5 grams amlodipine 10 mg tablet 10 mg PO DAILY #90 tabs 02/08/22 03/04/23 buspirone 5 mg tablet 5 mg PO BID #60 tabs 02/08/22 03/04/23 folic acid 1 mg tablet 1 mg PO DAILY #90 tabs 02/08/22 03/04/23 melatonin 3 mg capsule 6 mg PO HS #180 caps 02/08/22 03/04/23 metoprolol tartrate 50 mg tablet 50 mg PO DAILY #90 tabs 02/08/22 03/04/23 mirtazapine 7.5 mg tablet 7.5 mg PO QHS #90 tabs 02/08/22 03/04/23 sucralfate 1 gram tablet 1 g PO BID #60 tabs 02/08/22 03/04/23 thiamine HCl (vitamin B1) 100 mg 100 mg PO DAILY #90 tabs 02/08/22 03/04/23 tablet valacyclovir 500 mg tablet 500 mg PO DAILY #90 tabs 02/08/22 03/04/23 (Valtrex) budesonide 0.5 mg/2 mL suspension 0.5 mg (2 mL) inhalation DAILY #60 05/06/22 03/04/23 for nebulization (Pulmicort) mL pantoprazole 40 mg tablet,delayed 40 mg PO BID@0730,2000 #60 tabs 05/21/22 03/04/23 release cyanocobalamin (vitamin B-12) 500 1,000 mcg PO DAILY #180 tabs 07/10/22 03/04/23 mcg tablet (Vitamin B-12) ferrous sulfate 325 mg (65 mg 325 mg PO BID #180 tabs 07/10/22 03/04/23 iron) tablet multivitamin (Multiple Vitamins 1 tab PO DAILY #90 tabs 07/10/22 03/04/23 tablet) quetiapine 25 mg tablet See Rx Instructions PO BID #60 tabs 07/10/22 03/04/23 spironolactone 50 mg tablet 50 mg PO BID #180 tabs 07/10/22 03/04/23 (Aldactone) venlafaxine 75 mg capsule,extended 75 mg PO DAILY #90 caps 07/10/22 03/04/23 release 24 hr mirabegron 50 mg tablet,extended 50 mg PO DAILY #30 tabs 07/20/22 03/04/23 release 24 hr (Myrbetriq) aspirin 81 mg tablet,delayed 81 mg PO DAILY #90 tabs 08/05/22 03/04/23 release furosemide 20 mg tablet See Rx Instructions PO BID #180 08/11/22 03/04/23 tabs lidocaine 5 % topical patch 2 patch topical Q24H #30 ea 01/13/23 03/04/23 loperamide 2 mg capsule 2 mg PO Q4H PRN PRN #12 caps 01/13/23 03/04/23 metronidazole 500 mg tablet 500 mg PO TID #30 tabs 01/13/23 03/04/23 fidaxomicin 200 mg tablet (Dificid) 200 mg PO Q12H #20 tabs 01/15/23 03/04/23 magnesium oxide 400 mg PO BID #30 tabs 01/15/23 03/04/23 lorazepam 0.5 mg tablet 0.5 mg PO QHS PRN anxiety #20 tabs 02/02/23 03/04/23 ondansetron HCl 4 mg tablet 4 mg PO Q6H PRN nausea and 02/02/23 03/04/23 vomiting #20 tabs fluticasone propionate 50 2 spray NS daily prn #16 grams 02/03/23 03/04/23 mcg/actuation nasal spray,suspension Saccharomyces boulardii 250 mg 250 mg PO BID #20 caps 02/10/23 03/04/23 capsule (Florastor) furosemide 40 mg tablet 40 mg PO BID@0830,1599 #80 tabs 03/02/23 03/04/23 pantoprazole 40 mg tablet,delayed 40 mg PO BID@ #80 tabs 03/02/23 03/04/23 release Previous Rx's Medication Instructions Recorded carboxymethylcellulose sodium 0.5 1 drp OU Q4H WHILE AWAKE #30 ea 06/20/ % eye drops in a dropperette (Refresh Plus) albuterol sulfate 90 mcg/actuation 2 puff inhalation QID PRN 02/08/22 aerosol inhaler (Ventolin HFA) shortness of breath or wheezing #8.5 grams amlodipine 10 mg tablet 10 mg PO DAILY #90 tabs 02/08/22 buspirone 5 mg tablet 5 mg PO BID #60 tabs 02/08/22 folic acid 1 mg tablet 1 mg PO DAILY #90 tabs 02/08/22 melatonin 3 mg capsule 6 mg PO HS #180 caps 02/08/22 metoprolol tartrate 50 mg tablet 50 mg PO DAILY #90 tabs 02/08/22 mirtazapine 7.5 mg tablet 7.5 mg PO QHS #90 tabs 02/08/22 sucralfate 1 gram tablet 1 g PO BID #60 tabs 02/08/22 thiamine HCl (vitamin B1) 100 mg 100 mg PO DAILY #90 tabs 02/08/22 tablet valacyclovir 500 mg tablet 500 mg PO DAILY #90 tabs 02/08/22 (Valtrex) budesonide 0.5 mg/2 mL suspension 0.5 mg (2 mL) inhalation DAILY #60 05/06/22 for nebulization (Pulmicort) mL pantoprazole 40 mg tablet,delayed 40 mg PO BID@ #60 tabs 05/21/22 release cyanocobalamin (vitamin B-12) 500 1,000 mcg PO DAILY #180 tabs 07/10/22 mcg tablet (Vitamin B-12) ferrous sulfate 325 mg (65 mg 325 mg PO BID #180 tabs 07/10/22 iron) tablet multivitamin (Multiple Vitamins 1 tab PO DAILY #90 tabs 07/10/22 tablet) quetiapine 25 mg tablet See Rx Instructions PO BID #60 tabs 07/10/22 spironolactone 50 mg tablet 50 mg PO BID #180 tabs 07/10/22 (Aldactone) venlafaxine 75 mg capsule,extended 75 mg PO DAILY #90 caps 07/10/22 release 24 hr mirabegron 50 mg tablet,extended 50 mg PO DAILY #30 tabs 07/20/22 release 24 hr (Myrbetriq) aspirin 81 mg tablet,delayed 81 mg PO DAILY #90 tabs 08/05/22 release furosemide 20 mg tablet See Rx Instructions PO BID #180 08/11/22 tabs lidocaine 5 % topical patch 2 patch topical Q24H #30 ea 01/13/23 loperamide 2 mg capsule 2 mg PO Q4H PRN PRN #12 caps 01/13/23 metronidazole 500 mg tablet 500 mg PO TID #30 tabs 01/13/23 fidaxomicin 200 mg tablet (Dificid) 200 mg PO Q12H #20 tabs 01/15/23 magnesium oxide 400 mg PO BID #30 tabs 01/15/23 lorazepam 0.5 mg tablet 0.5 mg PO QHS PRN anxiety #20 tabs 02/02/23 ondansetron HCl 4 mg tablet 4 mg PO Q6H PRN nausea and 02/02/23 vomiting #20 tabs fluticasone propionate 50 2 spray NS daily prn #16 grams 02/03/23 mcg/actuation nasal spray,suspension Saccharomyces boulardii 250 mg 250 mg PO BID #20 caps 02/10/23 capsule (Florastor) furosemide 40 mg tablet 40 mg PO BID@30,1599 #80 tabs 03/02/23 pantoprazole 40 mg tablet,delayed 40 mg PO BID@ #80 tabs 03/02/23 release Allergies Allergy/AdvReac Type Severity Reaction Status Date / Time Penicillins Allergy Mild Rash Verified 03/04/23 05:24 ramipril Allergy Unknown ITCHING Verified 03/04/23 05:24 meperidine [From Demerol] AdvReac Severe Nausea Verified 03/04/23 05:24 bupropion AdvReac Mild GI upset Verified 03/04/23 05:24 AMBER Inhibitors AdvReac Unknown COUGH Verified 03/04/23 05:24 alendronate sodium AdvReac Unknown GI Distress Verified 03/04/23 05:24 clarithromycin AdvReac Unknown intolerant Verified 03/04/23 05:24 paroxetine AdvReac Unknown Diarrhea Verified 03/04/23 05:24 General Stated Complaint: GenMedical JORDAN: 3 Review of Systems Narrative: CONST: Negative for fever, body aches and chills. HENT: Negative for neck pain/stiffness, headache, congestion, sore throat, swelling. EYES: Negative for discharge/pain or vision changes. RESP: Negative for cough/hemoptysis and shortness of breath. CV: Negative chest pain, difficulty breathing, palpitations. ABD: + pain, negative nausea, vomiting. : Negative increase frequency, dysuria, blood in urine or stool. MUSC: Negative for muscle aches, edema. SKIN: Negative rash, lesions/sores. NEURO: Negative headache, + dizziness, +weakness. PFSH All Active Problems (Updated 03/04/23 @ 23:09 by Jefferson Tai MD) Hypomagnesemia (Acute) Dehydration (Acute) C. difficile diarrhea (Acute) Hypotension (Acute) Discharge planning issues (Acute) DVT prophylaxis (Acute) Hypomagnesemia (Chronic) Acute on chronic anemia (Acute) Ascites due to chronic alcoholic hepatitis (Chronic) Colitis due to Clostridium difficile (Acute) Anemia (Chronic) Portal hypertension (Chronic) Macrocytic anemia (Acute) Lung cancer (Chronic) RUL Pneumothorax after biopsy (Acute) 01/19/23 [place] [facility] [place] Soft tissue mass (Acute) 12/29/22 [place] [facility] Avid lobulated pre-sacral. -hb Hypokalemia (Acute) Alcohol abuse (Chronic) Multiple rib fractures (Chronic) 03/11/19 [facility] Alcohol withdrawal (Acute) Hypomagnesemia (Acute) Breast nodule (Acute) Sleep disturbance (Acute) Sinus tachycardia (Acute) High anion gap metabolic acidosis (Acute) Elevated blood pressure reading with diagnosis of hypertension (Acute) Pincer nail deformity (Acute) Insomnia (Acute) Thrombocytopenia (Chronic) Elevated bilirubin (Acute) Mixed stress and urge urinary incontinence (Acute) Thyroid nodule (Acute) Anxiety (Chronic) Adverse effect of metronidazole (Acute) Medication monitoring encounter (Acute) Advance care planning (Acute) Cirrhosis of liver with ascites (Acute) Animal bite of right hand with infection (Acute) Umbilical hernia (Acute) Hyperbilirubinemia (Acute) Shortness of breath (Acute) Elevated blood pressure reading without diagnosis of hypertension (Acute) Left arm pain (Acute) Ambulatory dysfunction (Acute) Incontinence (Acute) Anorexia (Acute) Headache (Acute) Depression (Chronic) Chest pain (Acute) Foot pain, right (Acute) Tendinitis of left rotator cuff (Acute) Macrocytosis (Acute 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 Leukopenia (Acute) Headache (Acute) Epigastric abdominal pain (Acute) Calcific tendinitis of left shoulder (Acute) Pulmonary mass (Acute) spiculated mass Pneumonia (Acute) Depression with suicidal ideation (Acute) Alcohol abuse (Chronic) Diarrhea (Acute) Epigastric pain (Acute) Dehydration (Acute) Difficult intravenous access (Acute) Multiple IV attempts, usually requires ultrasound placement. PTSD (post-traumatic stress disorder) (Acute) Anemia (Chronic) Depression (Chronic) Foot pain, right (Acute) T12 compression fracture (Acute) Presacral mass (Chronic) Deviated nasal septum (Acute) Frequent falls (Chronic) Head injury (Acute) Ambulatory dysfunction (Chronic) Shoulder pain, right (Chronic) Suicidal ideation (Acute) Dry eye (Acute) Pruritus (Acute) Dystrophic nail (Acute) AMBER (acute kidney injury) (Acute) Iron deficiency anemia (Chronic) Fall (Acute) Atelectasis of left lung (Chronic) Advance directive on file (Acute) Nodule of upper lobe of right lung (Acute ~09/13/18) 01/19/23 Increased [place] [facility] 09/13/18 [facility] ; 12mm SPICULATED -kb Cataract (Chronic 11/07/15) Hypertension (Chronic) high today; she will check readings at home Hyperlipidemia (Chronic) Back pain, chronic (Chronic) Depression (Chronic) Osteopenia (Chronic) Medical History (Updated 03/04/23 @ 23:09 by Jefferson Tai MD) Adjustment disorder with depressed mood Alcoholic ketosis Anemia Cervical radicular pain neck pain and DJD [facility] 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) pls refrain from alcohol Chronic alcoholism she will not stop drinking unless she checks with me, so that we can help her avert withdrawal I do not think she is capable on her own--she would need placement to achieve required goal of 3 months of sobriety Chronic diarrhea Closed right humeral fracture Corneal ulcer, right (~08/23/18) 08/23/18; UV- Fracture of humerus, left, closed Genital herpes simplex recurrent gential; suppressive Valtrex GERD (gastroesophageal reflux disease) GI bleed (12/20/16) Hypertension Hypokalemia Hypomagnesemia Incidental lung nodule, greater than or equal to 8mm 1cm, spiculated, stable for many years, recommend f/u in 6 mo Non-cardiac chest pain (09/21/16) [facility] [place] NEGATIVE MP Osteoarthritis Palliative care patient (03/21/17) Pancreatitis, alcoholic, acute Peripheral edema Photophobia of right eye Pleural effusion on left 03/11/19 [facility] Presacral mass (~09/15/18) 09/15/18 [facility] Sciatica right, epidural injuections [facility] Tubular adenoma of colon (01/28/17) Urinary incontinence 01/24/13 urethral suspension [place] sling [place] [facility] [place]bladder suspension 1991[place] 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 Bladder repair. Repair bladder injury, simple S/P laparoscopic cholecystectomy (~05/19/22) Family History Mother No problems noted. Father , DROWNED at age 50. No problems noted. Sister Personal history of malignant neoplasm MELANOMA Sister No problems noted. Grandfather Personal history of malignant neoplasm STOMACH Grandfather Personal history of malignant neoplasm PROSTATE Grandmother Heart disease [place] Acute ill-defined cerebrovascular disease Grandmother Personal history of malignant neoplasm UTERINE Aunt , [place] Heart disease [place] Aunt , [place] Heart disease Brother No problems noted. Social History Smoking/Tobacco Use Status: Never Smoking risk assessment performed?: Yes Alcohol Intake: current Alcohol Intake frequency: 3 or more drinks per day Alcohol type: hard liquor Drug use: Never Substance use type: does not use Details: Last alcoholic drink Mike zhong, 2 days ago Housing: apartment Current gender identity: female Do you feel safe at home: Yes Do you feel safe in your relationship?: No Additional Social history: Has 1 dog, 4 cats. Exam Narrative Exam Narrative: GENERAL APPEARANCE weak in appearance, poorly developed poorly nourished , pallor, EYES lids/PAL conjunctiva normal. EARS/NOSE/THROAT Mucous membranes moist, HEAD/NECK small superficial abrasion to the right temporal region, no facial trauma, neck is supple. RESPIRATORY poor inspiratory effort ,, repetitively clearing her throat, no tripod position, no accessory muscle use. CARDIAC nontachycardic, occasional PVCs, no edema. ABDOMINAL distended abdomen with cutaneous edema. Suture in the right upper quadrant of the abdomen from previous drain. No focal tenderness no ecchymosis MUSCLES/EXTREMITIES No abnormal range of motion, no swelling. Old ecchymoses over the bilateral knees SKIN poor skin turgor, multiple bruises in various stages of healing NEUROLOGICAL Speech is clear and appropriate. Normal level of consciousness. No lateralizing deficits PSYCH tearful. Judgement/competence is appropriate Course Vital Signs Vital signs: Vital Signs Temperature 36.6 C 03/04/23 05:13 Pulse 109 H 03/04/23 05:13 Respiratory Rate 37 H 03/04/23 05:13 Blood Pressure 82/53 L 03/04/23 05:13 Pulse Oximetry 95 03/04/23 05:13 Temperature 36.6 C 03/04/23 05:13 Temperature Source Tympanic 03/04/23 05:13 Pulse 107 H 03/04/23 05:45 Pulse 115 H 03/04/23 05:50 Respiratory Rate 28 H 03/04/23 05:54 Respiratory Effort Normal 03/04/23 05:54 Respiratory Depth Normal 03/04/23 05:54 Respiratory Pattern Normal 03/04/23 05:54 Blood Pressure 95/68 L 03/04/23 05:45 Blood Pressure Mean 74 03/04/23 05:45 Blood Pressure Position Supine 03/04/23 05:13 Pulse Oximetry 98 03/04/23 05:50 Oxygen Delivery Method Room Air 03/04/23 05:13 Oxygen Flow Rate 0 03/04/23 05:13 End Tidal Co2 6 03/04/23 05:13 Lab/Test Results Lab/Test Results: Laboratory Tests Range/Units 03/04/23 05:45 WBC (4.4-10.8) 10^3/uL 3.64 L RBC (3.93-5.22) 10^6/uL 2.83 L Hgb (11.2-15.7) g/dL 9.2 L Hct (36.0-46.0) % 29.7 L MCV (80-95) fL 105 H MCH (27.0-33.0) pg 32.5 MCHC (32.0-36.0) % 31.0 L RDW (11.7-14.6) % 19.2 H Plt Count (130-400) 10^3/uL 192 MPV (8.0-11.0) fL 10.1 Immature Gran % 0.5 Neutrophils % 71.0 Lymphocytes % 21.4 Monocytes % 6.3 Eosinophils % 0.3 Basophils % 0.5 Nucleated RBC % (0.0-0.3) % 0.0 Absolute Neutrophils (1.2-6.7) 10^3/uL 2.58 Absolute Lymphocytes (1.2-3.4) 10^3/uL 0.78 L Absolute Monocytes (0.1-0.8) 10^3/uL 0.23 Absolute Eosinophils (0.0-0.7) 10^3/uL 0.01 Absolute Basophils (0.0-0.2) 10^3/uL 0.02 PAWSS Pt Consumed Any Amount of Alcohol Within the Last 30 days OR had positive MIGUELINA Upon Admission: Yes
[2023-03-04 06:32] LABS: ALT 9 U/L (14-59); AST 25 U/L (15-37); Albumin 2.3 g/dL (3.4-5.0); Alkaline Phosphatase 165 U/L (46-116); Anion Gap 10.4 mmol/L (3-11); BUN 9 mg/dL (7-18); Bilirubin, Total 0.6 mg/dL (0.2-1.0); CO2 23.6 mmol/L (21.0-32.0); Calcium 8.5 mg/dL (8.5-10.1); Chloride 109 mmol/L (98-107); Estimated GFR 58.39 (mL/min/1.73m2); Glucose 115 mg/dL (74-106); Lipase 23 U/L (16-77); Magnesium 1.4 mg/dL (1.8-2.4); Potassium 3.5 mmol/L (3.5-5.1); Sodium 143 mmol/L (136-145); Total Protein 4.9 g/dL (6.4-8.2)
[2023-03-04 06:33] LABS: ETHANOL BLOOD < 3.0 mg/dL (<10)
[2023-03-04] MEDS: MAGNESIUM SULFATE 2 GM/50 ML BAG IVPB ×2 (07:02→20:26)
--- NOTE | 2023-03-04 07:23 | DI.VRAD_ITS ---
PROCEDURE INFORMATION: Exam: CT Head Without Contrast Exam date and time: 03/04/2023 6:43 AM Age: 77 years old Clinical indication: Injury or trauma; Fall; Concussion/head injury; Consciousness not specified TECHNIQUE: Imaging protocol: Computed tomography of the head without contrast. Radiation optimization: All CT scans at this facility use at least one of these dose optimization techniques: automated exposure control; mA and/or kV adjustment per patient size (includes targeted exams where dose is matched to clinical indication); or iterative reconstruction. COMPARISON: CT HEAD - STROKE PROTOCOL 02/23/2023 12:56 PM FINDINGS: Brain: Diffuse sulcal enlargement is compatible with age-related cerebral volume loss. There is no intracranial hemorrhage, mass effect, midline shift, or extra-axial collection. Schmitz-white matter differentiation is preserved. There is no evidence of acute territorial infarct. There is mild patchy periventricular and subcortical white matter hypoattenuation, most compatible with mild chronic microangiopathy. Cerebral ventricles: Diffuse mild ventricular enlargement compatible with age-related cerebral volume loss. No hydrocephalus. Paranasal sinuses: Visualized paranasal sinuses are well aerated. Mastoid air cells: Partial opacification of the left mastoid air cells. The right mastoid air cells are clear. Orbital cavities: Right lens prosthesis. Bones/joints: Unremarkable. No depressed calvarial fracture. Soft tissues: Extracranial soft tissues are unremarkable. Vasculature: Atherosclerotic vascular calcifications are noted at the skull base. IMPRESSION: No acute intracranial abnormality. No intracranial hemorrhage or depressed calvarial fracture. Dictated and Authenticated by: Bianka Jasso MD. Ordering:SAUL Paulino MD
--- NOTE | 2023-03-04 07:26 | DI.VRAD_ITS ---
PROCEDURE INFORMATION: Exam: XR Chest Exam date and time: 03/04/2023 6:51 AM Age: 77 years old Clinical indication: Injury or trauma; Fall TECHNIQUE: Imaging protocol: Radiologic exam of the chest. Views: 1 view. COMPARISON: 1. CR XR PORTABLE CHEST AP POST LINE 02/18/2023 3:21 PM 2. XR PORTABLE CHEST AP 02/13/2023 11:50 AM FINDINGS: Lungs: No consolidation or pulmonary edema. Pulmonary vasculature is normal in caliber. Pleural spaces: Unremarkable. No pleural effusion or pneumothorax. Heart/Mediastinum: Mild enlargement of the cardiac silhouette. The thoracic aorta is uncoiled. Cardiomediastinal contours are stable. Bones/joints: No acute osseous abnormality. Presumed osteotomy defect again noted in the distal left clavicle. IMPRESSION: No acute posttraumatic abnormality in the chest. Dictated and Authenticated by: Bianka Jasso MD. Ordering:SAUL Paulino MD
--- NOTE | 2023-03-04 07:29 | DI.VRAD_ITS ---
PROCEDURE INFORMATION: Exam: XR Pelvis Exam date and time: 03/04/2023 6:50 AM Age: 77 years old Clinical indication: Injury or trauma; Fall; Blunt trauma (contusions or hematomas); Bilateral; Pelvic region TECHNIQUE: Imaging protocol: Radiologic exam of the pelvis. Views: 1 view. COMPARISON: CT ABDOMEN PELVIS W 02/23/2023 3:01 PM FINDINGS: Bones/joints: No fractures are identified. There are changes of mild osteoarthritis in both hips. Lower lumbar spondylosis is noted. Soft tissues: Regional soft tissues are unremarkable. IMPRESSION: No fracture identified in the pelvis. Dictated and Authenticated by: Bianka Jasso MD. Ordering:SAUL Paulino MD
--- NOTE | 2023-03-04 07:30 | DI.CT_ITS ---
Exam(s) CT ABDOMEN PELVIS WO EXAM: CT ABDOMEN PELVIS WO CLINICAL HISTORY: Hx of Cdiff, ascitis. TECHNIQUE: Imaging Protocol: Axial computed tomography images with coronal and sagittal reformatted images were created and reviewed. Oral:/ no COMPARISON: CT CT ABDOMEN PELVIS WO from 02/16/[address] ABDOMEN PELVIS W from 02/23/2023 FINDINGS: ABDOMEN: Lung Bases: Small bilateral pleural effusions and adjacent atelectasis versus infiltrates. Heart is enlarged, reticular the left ventricle. Trace pericardial effusion. Mild coronary artery calcificat ions. Old bilateral rib fractures. Liver: Cirrhotic liver.. No measurable mass. Gallbladder and biliary tract: Status post cholecystectomy. No radiodense calculus or dilation. Pancreas: Normal density, no abnormal calcifications or inflammatory process. Spleen: Normal. Kidneys: Normal size, contour and axis. No radiodense stones or obstructive uropathy. Bilateral pilar l cysts. No suspicious masses seen. Adrenal glands: No masses seen. Lymph nodes: Within normal limits. Abdominal Aorta: Abdominal portion non-dilated. Soft tissues: Anasarca. Bilateral inguinal hernias. Some fluid seen in the left inguinal hernia, si milar to prior. PELVIS: Bladder: Symmetric distention, no gross wall thickening. Bowel: No obstruction. Mild colonic wall thickening remains present at this is decreased significant ly from prior exam. No pneumatosis. Appendix appears normal. Bowel is not well evaluated without o ral IV contrast. Peritoneal cavity: Large quantity of ascites which appears to have somewhat decreased when compared w ith prior. Reproductive organs: Within normal limits. Bones: Severe degenerative changes and scoliosis in the spine. Presacral masses again noted, without visible change. IMPRESSION: Some improvement in colonic wall thickening. No new abnormalities. RADIATION DOSE DELIVERED: 982.84mGy.cm Total DLP DATA REPOSITORY: All CT scans at this facility are submitted to the National Radiology Data Registry (NRDR) Dose Index Registry (DIR) with the [employer] (A[employer]). RADIATION OPTIMIZATION: All CT scans at this facility use at least one of these dose optimization te chniques: automated exposure control; mA and/or kV adjustment per patient size (includes targeted exa ms where dose is matched to clinical indication); or iterative reconstruction.
[2023-03-04 08:34] LABS: Lab Add On Test DONE
[2023-03-04 08:51] LABS: Creatine Kinase 29 U/L (26-192)
--- NOTE | 2023-03-04 09:18 | NUR.NOTE ---
Nursing Note: this nurse heard IV pump beeping in patient's room. Patient told this RN that she pulled out IV to make it so someone will come in to room. upon entering room this RN visualized call light was within reach of patient
[2023-03-04 09:22] LABS: Procalcitonin 0.1 ng/mL
[2023-03-04] MEDS: Cholestyramine/Aspartame PKT 1 EACH PO ×2 (09:51→20:06)
[2023-03-04] MEDS: Refresh PLUS Eye Drops 0.4ml OU ×3 (09:51→20:15)
[2023-03-04] MEDS: Lidocaine 5% Patch 2 PATCH TP (09:51)
[2023-03-04] MEDS: Mirabegron 50 MG TABCR PO (09:53)
[2023-03-04] MEDS: valACYclovir 500 MG TAB PO (09:53)
[2023-03-04] MEDS: Sucralfate 1 GM TAB PO ×2 (09:53→20:08)
[2023-03-04] MEDS: busPIRone 5 MG TAB PO ×2 (09:58→20:11)
[2023-03-04] MEDS: Aspirin E.C. 81 MG TABEC PO (09:58)
[2023-03-04] MEDS: Cyanocobalamin 500 MCG TAB 1000 MCG PO (09:58)
[2023-03-04] MEDS: Folic Acid 1 MG TAB PO (09:59)
[2023-03-04] MEDS: Ferrous Sulfate 325 MG TAB PO ×2 (09:59→20:10)
[2023-03-04] MEDS: QUEtiapine 25 MG TAB 12.5 MG PO ×2 (09:59→20:11)
[2023-03-04] MEDS: metroNIDAZOLE 500 MG TAB PO ×3 (09:59→20:10)
[2023-03-04] MEDS: Fidaxomicin 200 MG TAB PO ×2 (09:59→20:08)
[2023-03-04] MEDS: Midodrine 2.5 MG TAB 5 MG PO ×3 (09:59→20:11)
[2023-03-04] MEDS: Famotidine 20 MG TAB 40 MG PO ×2 (10:00→20:08)
[2023-03-04] MEDS: Venlafaxine 75 MG CAPCR PO (10:00)
[2023-03-04] MEDS: Multivitamin TAB 1 TAB PO (10:00)
[2023-03-04] MEDS: Thiamine 100 MG TAB PO (10:00)
[2023-03-04] MEDS: Albuterol/Ipratropium 3 ML UPD VIAL IH (10:46)
[2023-03-04] MEDS: Budesonide 0.5 MG/2 ML UPD VIAL IH (10:50)
[2023-03-04] MEDS: Acetaminophen 325 MG TAB PO (14:25)
[2023-03-04 15:09] LABS: C Diff PCR Negative (Negative)
--- NOTE | 2023-03-04 16:34 | NT_ITS ---
Date of service: 03/04/23 Time of Service: 16:24 PT Notes Visit Reasons: Fall,dehydration,symptomatic hypotension Patient returns to hospital from home after discharge on 03/02/2023. Came back to the ED today due to another mechanical fall at home. Attempted to see patient but is sleeping and refuses to open eyes and to wake up. Nurse Bianka updated. Weekend circulation assistant PT Tia Dave notified about this case for tomorrow's evaluation.
--- NOTE | 2023-03-04 19:35 | W.PM.HP.N ---
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 Continue lasix and spironalactone stitch is absorbable so no suture removal needed. (3) C. difficile colitis: Status: Resolved Assessment and plan: Continue Dificid 200 mg BID (4) Depression: Status: Chronic Assessment and plan: Continue home meds (5) Hypomagnesemia: Status: Chronic Assessment and plan: Conts to require repletion, today 1.4 . Continue to monitor (6) Alcohol abuse: Status: Chronic Assessment and plan: No evidence for acute alcohol withdrawal Encourage ongoing cessation. Thiamine 100 mg daily Multivitamin Folic acid (7) DVT prophylaxis: Status: Acute Assessment and plan: SCDs (8) Discharge planning issues: Status: Acute Assessment and plan: She is followed by palliative and measures are seeming futile at this point. We will ask palliative to readdress goals of care and limits of care and consider transitioning more to a comfort focused or hospice at this point. discussed with Dr Dumont History of Present Illness Narrative: This is a 77 year old patient with a longstanding history of alcohol abuse and with a recent discharge from this hospital who presented status post mechanical fall.? Per the patient she lives at home alone with her animals.? She contacted EMS. EMS went to the house to assist the patient by lifting her but refused transport to the ED.? Patient tells me that one of the times EMS came to the house they left the light on in the living room and the patient got up to turn the light off and that is when she had a mechanical fall.? Impacting the right side of her head.? She could not get up she used her medical alarm.? Patient transported via EMS to the hospital. Patient complained of pain over the right head pain, right hip pain and bilateral knee pain.? She continues to report having multiple bouts of watery diarrhea.? Known to have C. difficile.? Patient is a chronic alcoholic but states that she is not ingested alcohol through weeks. States that she has a sister that lives 1 mile away that checks on her every other day and helps her feed her animals.? Otherwise she lives at home alone. States that if she runs out of alcohol she gets a taxi to go buy some, although has not for several weeks. In the ED she had some hypotension which may have contributed to her fall at home. Labs in ED H/H 05/27, WBC 3.63, sodium 143, potassium 3.5, glucose 115, Magnesium 1.4, alk phos 165, Albumin 2.3, CT of the head with no acute intracranial process, CXR no acute findings, pelvis xray no acute abnormality, degenerative changes;CT abd/pelvis, nothing new. In the ED she received one litre of normal saline. She continued to have hypotension and was admitted to the medical floor for further testing and treatment. She is DNR/DNI. Review of Systems All systems reviewed & are unremarkable except as noted in HPI and below PFSH All Active Problems (Updated 03/04/23 @ 19:54 by Jerica Diez NP) Discharge planning issues (Acute) DVT prophylaxis (Acute) Hypomagnesemia (Chronic) Acute on chronic anemia (Acute) Ascites due to chronic alcoholic hepatitis (Chronic) Colitis due to Clostridium difficile (Acute) Anemia (Chronic) Portal hypertension (Chronic) Macrocytic anemia (Acute) Lung cancer (Chronic) RUL Pneumothorax after biopsy (Acute) 01/19/23 Per [facility] CXR. -hb Soft tissue mass (Acute) 12/29/22 PET at [facility] Avid lobulated pre-sacral. -hb Hypokalemia (Acute) Alcohol abuse (Chronic) Multiple rib fractures (Chronic) 03/11/19 [facility] Alcohol withdrawal (Acute) Hypomagnesemia (Acute) Breast nodule (Acute) Sleep disturbance (Acute) Sinus tachycardia (Acute) High anion gap metabolic acidosis (Acute) Elevated blood pressure reading with diagnosis of hypertension (Acute) Pincer nail deformity (Acute) Insomnia (Acute) Thrombocytopenia (Chronic) Elevated bilirubin (Acute) Mixed stress and urge urinary incontinence (Acute) Thyroid nodule (Acute) Anxiety (Chronic) Adverse effect of metronidazole (Acute) Medication monitoring encounter (Acute) Advance care planning (Acute) Cirrhosis of liver with ascites (Acute) Animal bite of right hand with infection (Acute) Umbilical hernia (Acute) Hyperbilirubinemia (Acute) Shortness of breath (Acute) Elevated blood pressure reading without diagnosis of hypertension (Acute) Left arm pain (Acute) Ambulatory dysfunction (Acute) Incontinence (Acute) Anorexia (Acute) Headache (Acute) Depression (Chronic) Chest pain (Acute) Foot pain, right (Acute) Tendinitis of left rotator cuff (Acute) Macrocytosis (Acute 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 Leukopenia (Acute) Headache (Acute) Epigastric abdominal pain (Acute) Calcific tendinitis of left shoulder (Acute) Pulmonary mass (Acute) spiculated mass Pneumonia (Acute) Depression with suicidal ideation (Acute) Alcohol abuse (Chronic) Diarrhea (Acute) Epigastric pain (Acute) Dehydration (Acute) Difficult intravenous access (Acute) Multiple IV attempts, usually requires ultrasound placement. PTSD (post-traumatic stress disorder) (Acute) Anemia (Chronic) Depression (Chronic) Foot pain, right (Acute) T12 compression fracture (Acute) Presacral mass (Chronic) Deviated nasal septum (Acute) Frequent falls (Chronic) Head injury (Acute) Ambulatory dysfunction (Chronic) Shoulder pain, right (Chronic) Suicidal ideation (Acute) Dry eye (Acute) Pruritus (Acute) Dystrophic nail (Acute) AMBER (acute kidney injury) (Acute) Iron deficiency anemia (Chronic) Fall (Acute) Atelectasis of left lung (Chronic) Advance directive on file (Acute) Nodule of upper lobe of right lung (Acute ~09/13/18) 01/19/23 Increased in size per [facility]. 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) pls refrain from alcohol Chronic alcoholism she will not stop drinking unless she checks with me, so that we can help her avert withdrawal I do not think she is capable on her own--she would need placement to achieve required goal of 3 months of sobriety Chronic diarrhea Closed right humeral fracture Corneal ulcer, right (~08/23/18) 08/23/18; [facility] Fracture of humerus, left, closed Genital herpes simplex recurrent gential; suppressive Valtrex GERD (gastroesophageal reflux disease) GI bleed (12/20/16) Hypertension Hypokalemia Hypomagnesemia Incidental lung nodule, greater than or equal to 8mm 1cm, spiculated, stable for many years, recommend f/u in 6 mo Non-cardiac chest pain (09/21/16) [facility] 09/21/16 NEGATIVE MP Osteoarthritis Palliative care patient (03/21/17) Pancreatitis, alcoholic, acute Peripheral edema Photophobia of right eye Pleural effusion on left 03/11/19 [facility] Presacral mass (~09/15/18) 09/15/18 [facility] Sciatica right, epidural injuections [facility] Tubular adenoma of colon (01/28/17) Urinary incontinence 01/24/13 urethral suspension and sling at [facility] (bladder suspension 1991) 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 Bladder repair. Repair bladder injury, simple S/P laparoscopic cholecystectomy (~05/19/22) Family History Mother No problems noted. Father , DROWNED at age 50. No problems noted. Sister Personal history of malignant neoplasm MELANOMA Sister No problems noted. Grandfather Personal history of malignant neoplasm STOMACH Grandfather Personal history of malignant neoplasm PROSTATE Grandmother Heart disease ND Acute ill-defined cerebrovascular disease Grandmother Personal history of malignant neoplasm UTERINE Aunt , ND Heart disease ND Aunt , ND Heart disease Brother No problems noted. Social History Smoking/Tobacco Use Status: Never Smoking risk assessment performed?: Yes Alcohol Intake: current Alcohol Intake frequency: 3 or more drinks per day Alcohol type: hard liquor Drug use: Never Substance use type: does not use Details: Last alcoholic drink Mike whiskey, 2 days ago Housing: apartment Current gender identity: female Do you feel safe at home: Yes Do you feel safe in your relationship?: No Additional Social history: Has 1 dog, 4 cats. Meds Allergies and Home Medications Allergies Allergy/AdvReac Type Severity Reaction Status Date / Time Penicillins Allergy Mild Rash Verified 03/04/23 05:24 ramipril Allergy Unknown ITCHING Verified 03/04/23 05:24 meperidine [From Demerol] AdvReac Severe Nausea Verified 03/04/23 05:24 bupropion AdvReac Mild GI upset Verified 03/04/23 05:24 AMBER Inhibitors AdvReac Unknown COUGH Verified 03/04/23 05:24 alendronate sodium AdvReac Unknown GI Distress Verified 03/04/23 05:24 clarithromycin AdvReac Unknown intolerant Verified 03/04/23 05:24 paroxetine AdvReac Unknown Diarrhea Verified 03/04/23 05:24 Home Medications Medication Instructions Recorded Confirmed Type carboxymethylcellulose sodium 0.5 1 drp OU Q4H WHILE AWAKE #30 ea 06/20/19 03/04/23 Rx % eye drops in a dropperette (Refresh Plus) lifitegrast 5 % eye drops in a 1 drp ophthalmic (eye) BID 08/05/20 03/04/23 History dropperette (Xiidra) ipratropium 0.5 mg-albuterol 3 mg 3 ml inhalation Q6H PRN 12/25/21 03/04/23 History (2.5 mg base)/3 mL nebulization soln albuterol sulfate 90 mcg/actuation 2 puff inhalation QID PRN 02/08/22 03/04/23 Rx aerosol inhaler (Ventolin HFA) shortness of breath or wheezing #8.5 grams amlodipine 10 mg tablet 10 mg PO DAILY #90 tabs 02/08/22 03/04/23 Rx buspirone 5 mg tablet 5 mg PO BID #60 tabs 02/08/22 03/04/23 Rx folic acid 1 mg tablet 1 mg PO DAILY #90 tabs 02/08/22 03/04/23 Rx melatonin 3 mg capsule 6 mg PO HS #180 caps 02/08/22 03/04/23 Rx metoprolol tartrate 50 mg tablet 50 mg PO DAILY #90 tabs 02/08/22 03/04/23 Rx mirtazapine 7.5 mg tablet 7.5 mg PO QHS #90 tabs 02/08/22 03/04/23 Rx sucralfate 1 gram tablet 1 g PO BID #60 tabs 02/08/22 03/04/23 Rx thiamine HCl (vitamin B1) 100 mg 100 mg PO DAILY #90 tabs 02/08/22 03/04/23 Rx tablet valacyclovir 500 mg tablet 500 mg PO DAILY #90 tabs 02/08/22 03/04/23 Rx (Valtrex) budesonide 0.5 mg/2 mL suspension 0.5 mg (2 mL) inhalation DAILY #60 05/06/22 03/04/23 Rx for nebulization (Pulmicort) mL pantoprazole 40 mg tablet,delayed 40 mg PO BID@ #60 tabs 05/21/22 03/04/23 Rx release cyanocobalamin (vitamin B-12) 500 1,000 mcg PO DAILY #180 tabs 07/10/22 03/04/23 Rx mcg tablet (Vitamin B-12) ferrous sulfate 325 mg (65 mg 325 mg PO BID #180 tabs 07/10/22 03/04/23 Rx iron) tablet multivitamin (Multiple Vitamins 1 tab PO DAILY #90 tabs 07/10/22 03/04/23 Rx tablet) quetiapine 25 mg tablet See Rx Instructions PO BID #60 tabs 07/10/22 03/04/23 Rx spironolactone 50 mg tablet 50 mg PO BID #180 tabs 07/10/22 03/04/23 Rx (Aldactone) venlafaxine 75 mg capsule,extended 75 mg PO DAILY #90 caps 07/10/22 03/04/23 Rx release 24 hr mirabegron 50 mg tablet,extended 50 mg PO DAILY #30 tabs 07/20/22 03/04/23 Rx release 24 hr (Myrbetriq) aspirin 81 mg tablet,delayed 81 mg PO DAILY #90 tabs 08/05/22 03/04/23 Rx release furosemide 20 mg tablet See Rx Instructions PO BID #180 08/11/22 03/04/23 Rx tabs lidocaine 5 % topical patch 2 patch topical Q24H #30 ea 01/13/23 03/04/23 Rx loperamide 2 mg capsule 2 mg PO Q4H PRN PRN #12 caps 01/13/23 03/04/23 Rx metronidazole 500 mg tablet 500 mg PO TID #30 tabs 01/13/23 03/04/23 Rx fidaxomicin 200 mg tablet (Dificid) 200 mg PO Q12H #20 tabs 01/15/23 03/04/23 Rx magnesium oxide 400 mg PO BID #30 tabs 01/15/23 03/04/23 Rx lorazepam 0.5 mg tablet 0.5 mg PO QHS PRN anxiety #20 tabs 02/02/23 03/04/23 Rx ondansetron HCl 4 mg tablet 4 mg PO Q6H PRN nausea and 02/02/23 03/04/23 Rx vomiting #20 tabs fluticasone propionate 50 2 spray NS daily prn #16 grams 02/03/23 03/04/23 Rx mcg/actuation nasal spray,suspension Saccharomyces boulardii 250 mg 250 mg PO BID #20 caps 02/10/23 03/04/23 Rx capsule (Florastor) furosemide 40 mg tablet 40 mg PO BID@0830,1600 #80 tabs 03/02/23 03/04/23 Rx pantoprazole 40 mg tablet,delayed 40 mg PO BID@0730,2000 #80 tabs 03/02/23 03/04/23 Rx release Exam Narrative Exam Narrative: GENERAL APPEARANCE weak in appearance, poorly developed poorly nourished , pallor, EYES lids/PAL conjunctiva normal. EARS/NOSE/THROAT Mucous membranes moist, HEAD/NECK small superficial abrasion to the right temporal region, no facial trauma, neck is supple. RESPIRATORY poor inspiratory effort, no accessory muscle use. CARDIAC nontachycardic, occasional PVCs, no edema. ABDOMINAL distended abdomen with cutaneous edema. Suture in the right upper quadrant of the abdomen from previous tap. No focal tenderness no ecchymosis MUSCLES/EXTREMITIES No abnormal range of motion, no swelling. Old ecchymoses over the bilateral knees SKIN poor skin turgor, multiple bruises in various stages of healing NEUROLOGICAL Speech is clear and appropriate. Normal level of consciousness. No lateralizing deficits PSYCH tearful. Judgement/competence is appropriate Results Labs 03/04/23 05:45 03/04/23 05:45 Labs: Laboratory Results - last 24 hr 0703/04/23 03/04/23 05:45 05:45 05:45 WBC 3.64 L RBC 2.83 L Hgb 9.2 L Hct 29.7 L MCV 105 H MCH 32.5 MCHC 31.0 L RDW 19.2 H Plt Count 192 MPV 10.1 Immature Gran % 0.5 Neutrophils % 71.0 Lymphocytes % 21.4 Monocytes % 6.3 Eosinophils % 0.3 Basophils % 0.5 Nucleated RBC % 0.0 Absolute Neutrophils 2.58 Absolute Lymphocytes 0.78 L Absolute Monocytes 0.23 Absolute Eosinophils 0.01 Absolute Basophils 0.02 Sodium 143 Potassium 3.5 Chloride 109 H Carbon Dioxide 23.6 Anion Gap 10.4 BUN 9 Creatinine 1.0 Est GFR (CKD-EPI 2020) 58.39 Glucose 115 H Calcium 8.5 Magnesium 1.4 L Total Bilirubin 0.6 AST 25 ALT 9 L Alkaline Phosphatase 165 H Creatine Kinase Total Protein 4.9 L Albumin 2.3 L Lipase 23 Procalcitonin Stl C.difficile Tox PCR Ethyl Alcohol < 3.0 Add-On Test Request DONE 03/04/23 03/04/23 03/04/23 05:45 05:45 13:56 WBC RBC Hgb Hct MCV MCH MCHC RDW Plt Count MPV Immature Gran % Neutrophils % Lymphocytes % Monocytes % Eosinophils % Basophils % Nucleated RBC % Absolute Neutrophils Absolute Lymphocytes Absolute Monocytes Absolute Eosinophils Absolute Basophils Sodium Potassium Chloride Carbon Dioxide Anion Gap BUN Creatinine Est GFR (CKD-EPI 2020) Glucose Calcium Magnesium Total Bilirubin AST ALT Alkaline Phosphatase Creatine Kinase 29 Total Protein Albumin Lipase Procalcitonin 0.1 Stl C.difficile Tox PCR Negative Ethyl Alcohol Add-On Test Request Last Vital Signs Temp 35.5 C L 03/04/23 14:56 Pulse 120 H 03/04/23 15:00 Resp 18 03/04/23 14:56 BP 110/77 03/04/23 14:56 Pulse Ox 94 03/04/23 14:56 PAWSS Pt Consumed Any Amount of Alcohol Within the Last 30 days OR had positive MIGUELINA Upon Admission: Yes Time Spent Time spent with Patient: 55-74 minutes Time was spent: preparing to see the patient(eg.review tests), obtaining and/or reviewing separately otained hiistory, ordering medications,tests, procedures, referring, communicating with other health furnace caretaker, indepentently interpreting results, counseling the patient and care coordination
[2023-03-04] MEDS: Lidocaine Patch Removal 2 EACH TP (20:19)
[2023-03-04] MEDS: Normal Saline 1,000 ML 100 ML IV (20:26)
[2023-03-04] MEDS: Melatonin 3 MG TAB 6 MG PO (22:21)
[2023-03-04] MEDS: Mirtazapine 15 MG TAB 7.5 MG PO (22:22)
[2023-03-04] MEDS: ALBUMIN HUMAN 25 GM/100 ML BTL IVPB (22:23)
[2023-03-05] VITALS (9 sets, daily range): BP systolic 94–120; BP diastolic 53–76; PULSE 104–120; RESP 1–22; TEMP 36.1–36.9; O2SAT 89–98
[2023-03-05] MEDS: Ondansetron O.D.T. 4 MG TABEF PO ×3 (03:17→17:32)
[2023-03-05] MEDS: LORazepam 0.5 MG TAB PO ×2 (04:52→17:31)
[2023-03-05] MEDS: Albuterol/Ipratropium 3 ML UPD VIAL IH ×2 (06:05→17:30)
[2023-03-05 07:21] LABS: Abs Immature Grans 0.02 10^3/uL (0.0-0.06); Absolute Basophil Count 0.03 10^3/uL (0.0-0.2); Absolute Eosinophil Count 0.01 10^3/uL (0.0-0.7); Absolute Lymphocyte Count 0.77 10^3/uL (1.2-3.4); Absolute Monocyte Count 0.23 10^3/uL (0.1-0.8); Absolute Neutrophil Count 2.69 10^3/uL (1.2-6.7); Basophils % 0.8; Eosinophils % 0.3; HCT 27.9 % (36.0-46.0); HGB 8.7 g/dL (11.2-15.7); Immature Grans % 0.5; Lymphocytes % 20.5; MCHC 31.2 % (32.0-36.0); MCV 106 fL (80-95); MPV 10.2 fL (8.0-11.0); Monocytes % 6.1; Neutrophils % 71.8; Platelet Count 202 10^3/uL (130-400); RBC 2.64 10^6/uL (3.93-5.22); RDW 18.9 % (11.7-14.6); RDW-SD 74.1 fL; WBC 3.75 10^3/uL (4.4-10.8)
[2023-03-05 07:40] LABS: Anion Gap 13.3 mmol/L (3-11); BUN 8 mg/dL (7-18); CO2 18.7 mmol/L (21.0-32.0); CREATININE 0.8 mg/dL (0.55-1.02); Calcium 8.7 mg/dL (8.5-10.1); Chloride 110 mmol/L (98-107); Estimated GFR 76.31 (mL/min/1.73m2); Glucose 153 mg/dL (74-106); Magnesium 2.3 mg/dL (1.8-2.4); Sodium 142 mmol/L (136-145)
[2023-03-05] MEDS: Budesonide 0.5 MG/2 ML UPD VIAL IH (07:58)
[2023-03-05] MEDS: Refresh PLUS Eye Drops 0.4ml OU ×4 (08:18→21:19)
[2023-03-05] MEDS: Famotidine 20 MG TAB 40 MG PO ×2 (08:18→20:09)
[2023-03-05] MEDS: metroNIDAZOLE 500 MG TAB PO ×2 (08:19→13:39)
[2023-03-05] MEDS: Sucralfate 1 GM TAB PO ×2 (08:19→20:12)
[2023-03-05] MEDS: Folic Acid 1 MG TAB PO (08:19)
[2023-03-05] MEDS: Cyanocobalamin 500 MCG TAB 1000 MCG PO (08:19)
[2023-03-05] MEDS: Ferrous Sulfate 325 MG TAB PO ×2 (08:19→20:10)
[2023-03-05] MEDS: Mirabegron 50 MG TABCR PO (08:19)
[2023-03-05] MEDS: Thiamine 100 MG TAB PO (08:19)
[2023-03-05] MEDS: Multivitamin TAB 1 TAB PO (08:19)
[2023-03-05] MEDS: Midodrine 2.5 MG TAB 5 MG PO ×3 (08:19→20:09)
[2023-03-05] MEDS: Aspirin E.C. 81 MG TABEC PO (08:20)
[2023-03-05] MEDS: busPIRone 5 MG TAB PO ×2 (08:20→20:10)
[2023-03-05] MEDS: QUEtiapine 25 MG TAB 12.5 MG PO ×2 (08:20→20:10)
[2023-03-05] MEDS: Lidocaine 5% Patch 2 PATCH TP (08:23)
[2023-03-05] MEDS: Fidaxomicin 200 MG TAB PO ×2 (08:24→20:09)
[2023-03-05] MEDS: valACYclovir 500 MG TAB PO (08:29)
[2023-03-05] MEDS: Venlafaxine 75 MG CAPCR PO (08:29)
[2023-03-05] MEDS: Cholestyramine/Aspartame PKT 1 EACH PO ×2 (09:24→21:19)
--- NOTE | 2023-03-05 11:13 | PT.INIE ---
Date of service: 03/05/23 Time of Service: 09:30 PT Notes Visit Reasons: Fall,dehydration,symptomatic hypotension Inpatient Physical Therapy Evaluation Date: 03/05/23 Referring Doctor: Laly Dumont MD PT Orders: PT CONSULT: Limited ability Precautions: Fall risk Patient Profile/Admitting Diagnosis: This is a 77 year old patient with a longstanding history of alcohol abuse and with a recent discharge from this hospital who presented status post mechanical fall. Impacting the right side of her head with fall.? She could not get up she used her medical alarm.? Patient transported via EMS to the hospital.?? PMHX: All Active Problems?(Updated 03/04/23 @ 19:54 by Jerica Diez NP) Discharge planning issues (Acute) DVT prophylaxis (Acute) Hypomagnesemia (Chronic) Acute on chronic anemia (Acute) Ascites due to chronic alcoholic hepatitis (Chronic) Colitis due to Clostridium difficile (Acute) Anemia (Chronic) Portal hypertension (Chronic) Macrocytic anemia (Acute) Lung cancer (Chronic) RULPneumothorax after biopsy (Acute) 01/19/23? Per [facility] CXR.? -hbSoft tissue mass (Acute) 12/29/22? PET at [facility] Avid lobulated pre-sacral.? -hb Hypokalemia (Acute) Alcohol abuse (Chronic) Multiple rib fractures (Chronic) [facility]) Hypomagnesemia (Acute) Breast nodule (Acute) Sleep disturbance (Acute) Sinus tachycardia (Acute) High anion gap metabolic acidosis (Acute) Elevated blood pressure reading with diagnosis of hypertension (Acute) Pincer nail deformity (Acute) Insomnia (Acute) Thrombocytopenia (Chronic) Elevated bilirubin (Acute) Mixed stress and urge urinary incontinence (Acute) Thyroid nodule (Acute) Anxiety (Chronic) Adverse effect of metronidazole (Acute) Medication monitoring encounter (Acute) Advance care planning (Acute) Cirrhosis of liver with ascites (Acute) Animal bite of right hand with infection (Acute) Umbilical hernia (Acute) Hyperbilirubinemia (Acute) Shortness of breath (Acute) Elevated blood pressure reading without diagnosis of hypertension (Acute) Left arm pain (Acute) Ambulatory dysfunction (Acute) Incontinence (Acute) Anorexia (Acute) Headache (Acute) Depression (Chronic) Chest pain (Acute) Foot pain, right (Acute) Tendinitis of left rotator cuff (Acute) Macrocytosis (Acute 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 Leukopenia (Acute) Headache (Acute) Epigastric abdominal pain (Acute) Calcific tendinitis of left shoulder (Acute) Pulmonary mass (Acute) spiculated massPneumonia (Acute) Depression with suicidal ideation (Acute) Alcohol abuse (Chronic) Diarrhea (Acute) Epigastric pain (Acute) Dehydration (Acute) Difficult intravenous access (Acute) Multiple IV attempts, usually requires ultrasound placement.PTSD (post-traumatic stress disorder) (Acute) Anemia (Chronic) Depression (Chronic) Foot pain, right (Acute) T12 compression fracture (Acute) Presacral mass (Chronic) Deviated nasal septum (Acute) Frequent falls (Chronic) Head injury (Acute) Ambulatory dysfunction (Chronic) Shoulder pain, right (Chronic) Suicidal ideation (Acute) Dry eye (Acute) Pruritus (Acute) Dystrophic nail (Acute) AMBER (acute kidney injury) (Acute) Iron deficiency anemia (Chronic) Fall (Acute) Atelectasis of left lung (Chronic) Advance directive on file (Acute) Nodule of upper lobe of right lung (Acute ~09/13/18) 01/19/23? Increased in size per [facility].? -hb 09/13/18 [facility]; 12mm SPICULATED -kbCataract (Chronic 11/07/15) Hypertension (Chronic) high today; she will check readings at homeHyperlipidemia (Chronic) Back pain, chronic (Chronic) Depression (Chronic) Osteopenia (Chronic) Medical History?(Updated 03/04/23 @ 19:54 by Jerica Diez NP) Adjustment disorder with depressed mood Alcoholic ketosis Anemia Cervical radicular pain neck pain and DJD [facility] 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) pls refrain from alcoholChronic alcoholism she will not stop drinking unless she checks with me, so that we can help her avert withdrawal I do not think she is capable on her own--she would need placement to achieve required goal of 3 months of sobrietyChronic diarrhea Closed right humeral fracture Corneal ulcer, right (~08/23/18) 08/23/18; [facility]Fract[facility] of humerus, left, closed Genital herpes simplex recurrent gential; suppressive Valtrex GERD (gastroesophageal reflux disease) GI bleed (12/20/16) Hypertension Hypokalemia Hypomagnesemia Incidental lung nodule, greater than or equal to 8mm 1cm, spiculated, stable for many years, recommend f/u in 6 moNon-cardiac chest pain (09/21/16) [facility] 09/21/16 NEGATIVE MP Osteoarthritis Palliative care patient (03/21/17) Pancreatitis, alcoholic, acute Peripheral edema Photophobia of right eye Pleural effusion on left 03/11/19 [facility] (~09/15/18[facility], [facility] Tubular adenoma of colon (01/28/17) Urinary incontinence 01/24/13 urethral suspension and sling at [facility] (bladder suspension 1991) Vision loss of right eye 08/17/18;[facility] encephal[facility] Surgical History? Colonoscopy - MAC (01/28/17) EGD - MAC (12/20/16) History of bilateral ligation of fallopian tubes History of Surgical Procedure a. Bladder repair.Repair bladder injury, simple S/P laparoscopic cholecystectomy (~05/19/22) Social History/Home Situation: Lives alone in apartment, with two animals. She does not leave her home at all, has family or neighbors bring her groceries. She is unable to get in and out of her apartment, reports 5 men had to help her get in her apartment two days ago. Current Functional Limitations: Requires assist for all bed mobility, and EOB stability. Unable to ambulate or stand due to low BP. Equipment Owned/DME: Walker Subjective: Very tired and dizzy. Does not feel up to moving, do to nauseau. Objective: General Observation: Lying in hospital bed, reclined, sleeping. Difficult to awake, very sleep. Mental Status: A & O x 3 Pain: Reports achiness on R side of head, unable to quantify. Otherwise no pain. Vital Signs: Seated BP 94/43, HR 125. ROM: Right Upper Extremity: Erica flex and abd 90 with pain, she fell on her right side. Otherwise WNL Left Upper Extremity: WFL Right Lower Extremity: WFL Left Lower Extremity: WFL Strength: Right Upper Extremity: Erica flex and abd 3+/5, elbow flex/ext 4/5, wrist and digits 4/5 Left Upper Extremity: Erica flex and abd 3+/5, elbow flex/ext 4/5, wrist and digits 4/5 Right Lower Extremity: Assessed in hooklying due to low BP in sitting - Grossly 4-/5 throughout Left Lower Extremity: Assessed in hooklying due to low BP in sitting - Grossly 4-/5 throughout Sensation: Intact Bed Mobility/Transfers: Mod A x 1 <>reclined with HOB at 45 deg, to sitting at EOB Unable to tolerate stand or transfer due to low BP, and consequential fatigue Gait: Unable Balance: Static Sitting: Poor Dynamic Sitting: Poor Static Standing: Poor Dynamic Standing: Poor Special Tests: Mobility Limitations Standardized Measure [facility] AM-PAC 6 clicks Basic Mobility Inpatient Short Form: 92% disability Informed Consent/Education: Patient instructed in purpose of PT consult and plan of care. Assessment: Patient is a 77 year old female referred to physical therapy services with the diagnosis of limited ability due to weakness, as consequence of chronic alcoholism with chronic anemia, weakness, and frequent falls. Patient presents with clinical signs and symptoms consistent with global weakness, deconditioning, and poor balance. Unable to asses in standing and functional transfer ability, as she is unable to tolerate due to current low BP condition, contributing to balance disorder and limited mobility. requires skilled PT to attend to above impairments, allowing for progressing of sitting, transfers, standing, and ambulating ability. Currently patient unsafe to return to independent living situation, and will likely require SNF or fdc placement if her abilities to do not improve. Patient is assessed as a Moderate 13853 complexity based on the above history, examination findings, evolving presentation with easy decision making. Goals: Goals X1 week - all with RW 1. Supine-Sit independent 2. Sit-Supine independent 3. Sit-Stand independent 4. Stand-Sit independent 5. Bed-Chair independent 6. Chair-Bed independent 7. Gait independent with RW 8. Stairs 5 with rail, close supervision 9. Independent with home exercise program 10. Balance good with RW Plan of Care/Treatment Plan: 1-2x/day, 7 days/week x 1 week. Plan of care has been reviewed with the BIAS MACHINE OPERATOR HELPER providing the service under Physical Therapy direction. Initiate Physical Therapy intervention for strengthening, bed mobility, transfers, gait, stairs, balance training, use of assistive device. Monitor vitals, and improve vital stability with change of position. DISCHARGE RECOMMENDATIONS: SNF for continued rehabilitation TREATMENT CODE/TIME: 30782, 9:30-10:00 a.m.
--- NOTE | 2023-03-05 12:08 | INITIAL_ITS ---
Date of service: 03/05/23 Time of Service: 12:08 Care Management Initial Assmt Initial Assessment REASON FOR HOSPITALIZATION:: Fall, dehydration, symptomatic hypotension PREVIOUS FUNCTIONAL STATUS/SOCIAL/FAMILY SUPPORTS:: Leticia lives alone in her home in [place] with her dog and cats. She has a sister who takes care of her animals when she is hospitalized, and a homemaker, Marry, who visits her 3x/week for 2 hrs at a time. Her son Seth is her DPOA, although he lives in [place]. CURRENT FUNCTIONAL STATUS:: Leticia was resting in bed when CM met with her. She stated that she had a difficult time getting into her home after being discharged, and was not successful at home. Despite this information, when asked about SNF placement Leticia remains resistant. She stated that her main concern about placement is that she does not want to leave her dog and three cats. Her sister takes care of her animals when she is hospitalized. Leticia stated that she is not feeling well currently, and feels that she needs to get stronger prior to going home again. CM will continue to review discharge options with Leticia, and will continue to follow. ADVANCE DIRECTIVES:: [employer] on file. SonSeth, listed as agent and DPOA. Has patient been provided with info about the portal/API?: Yes Did the patient sign up for the portal?: Yes CODE STATUS:: DNR/DNI INSURANCE COVERAGE / FINANCIAL ISSUES:: [facility] Medicare replacement CURRENT HOME/COMMUNITY SERVICES/EQUIPMENT:: Leitcia owns a walker, a cane, and a toilet seat riser. She has a homemaker three days a week for two hours per day, in addition to MOW. PRIMARY CARE PHYSICIAN:: Lavelle Galindo POTENTIAL DISCHARGE NEEDS:: Evaluations for further needs, possible rehab placement, follow up appointments. PATIENT/FAMILY EDUCATION NEEDS:: Review of discharge instructions regarding medications, activity level, and follow up plan of care, and discussion of Ask Me Three. ANTICIPATED BARRIERS TO DISCHARGE:: None identified. TRANSPORTATION:: [facility] private vehicle PLAN:: Anticipate Leticia will be discharged home vs SNF, if agreeable, when medically cleared by provider. She will follow up with her community providers and plan of care as directed. Leticia will transport home via [facility] private vehicle coordinated by CM. CM will continue to support Leticia and any discharge planning needs. PFSH All Active Problems (Updated 03/04/23 @ 23:09 by Jefferson Tai MD) Hypomagnesemia (Acute) Dehydration (Acute) C. difficile diarrhea (Acute) Hypotension (Acute) Discharge planning issues (Acute) DVT prophylaxis (Acute) Hypomagnesemia (Chronic) Acute on chronic anemia (Acute) Ascites due to chronic alcoholic hepatitis (Chronic) Colitis due to Clostridium difficile (Acute) Anemia (Chronic) Portal hypertension (Chronic) Macrocytic anemia (Acute) Lung cancer (Chronic) RUL Pneumothorax after biopsy (Acute) 01/19/23 Per [facility] CXR. -hb Soft tissue mass (Acute) 12/29/22 PET at [facility] Avid lobulated pre-sacral. -hb Hypokalemia (Acute) Alcohol abuse (Chronic) Multiple rib fractures (Chronic) 03/11/19 [facility] Alcohol withdrawal (Acute) Hypomagnesemia (Acute) Breast nodule (Acute) Sleep disturbance (Acute) Sinus tachycardia (Acute) High anion gap metabolic acidosis (Acute) Elevated blood pressure reading with diagnosis of hypertension (Acute) Pincer nail deformity (Acute) Insomnia (Acute) Thrombocytopenia (Chronic) Elevated bilirubin (Acute) Mixed stress and urge urinary incontinence (Acute) Thyroid nodule (Acute) Anxiety (Chronic) Adverse effect of metronidazole (Acute) Medication monitoring encounter (Acute) Advance care planning (Acute) Cirrhosis of liver with ascites (Acute) Animal bite of right hand with infection (Acute) Umbilical hernia (Acute) Hyperbilirubinemia (Acute) Shortness of breath (Acute) Elevated blood pressure reading without diagnosis of hypertension (Acute) Left arm pain (Acute) Ambulatory dysfunction (Acute) Incontinence (Acute) Anorexia (Acute) Headache (Acute) Depression (Chronic) Chest pain (Acute) Foot pain, right (Acute) Tendinitis of left rotator cuff (Acute) Macrocytosis (Acute 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 Leukopenia (Acute) Headache (Acute) Epigastric abdominal pain (Acute) Calcific tendinitis of left shoulder (Acute) Pulmonary mass (Acute) spiculated mass Pneumonia (Acute) Depression with suicidal ideation (Acute) Alcohol abuse (Chronic) Diarrhea (Acute) Epigastric pain (Acute) Dehydration (Acute) Difficult intravenous access (Acute) Multiple IV attempts, usually requires ultrasound placement. PTSD (post-traumatic stress disorder) (Acute) Anemia (Chronic) Depression (Chronic) Foot pain, right (Acute) T12 compression fracture (Acute) Presacral mass (Chronic) Deviated nasal septum (Acute) Frequent falls (Chronic) Head injury (Acute) Ambulatory dysfunction (Chronic) Shoulder pain, right (Chronic) Suicidal ideation (Acute) Dry eye (Acute) Pruritus (Acute) Dystrophic nail (Acute) AMBER (acute kidney injury) (Acute) Iron deficiency anemia (Chronic) Fall (Acute) Atelectasis of left lung (Chronic) Advance directive on file (Acute) Nodule of upper lobe of right lung (Acute ~09/13/18) 01/19/23 Increased in size per [facility]. -hb 09/13/18 [facility]; 12mm SPICULATED -kb Cataract (Chronic 11/07/15) Hypertension (Chronic) high today; she will check readings at home Hyperlipidemia (Chronic) Back pain, chronic (Chronic) Depression (Chronic) Osteopenia (Chronic) Medical History (Updated 03/04/23 @ 23:09 by Jefferson Tai MD) Adjustment disorder with depressed mood Alcoholic ketosis Anemia Cervical radicular pain neck pain and DJD [facility] 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) pls refrain from alcohol Chronic alcoholism she will not stop drinking unless she checks with me, so that we can help her avert withdrawal I do not think she is capable on her own--she would need placement to achieve required goal of 3 months of sobriety Chronic diarrhea Closed right humeral fracture Corneal ulcer, right (~08/23/18) 08/23/18; [facility] Fracture of humerus, left, closed Genital herpes simplex recurrent gential; suppressive Valtrex GERD (gastroesophageal reflux disease) GI bleed (12/20/16) Hypertension Hypokalemia Hypomagnesemia Incidental lung nodule, greater than or equal to 8mm 1cm, spiculated, stable for many years, recommend f/u in 6 mo Non-cardiac chest pain (09/21/16) [facility] 09/21/16 NEGATIVE MP Osteoarthritis Palliative care patient (03/21/17) Pancreatitis, alcoholic, acute Peripheral edema Photophobia of right eye Pleural effusion on left 03/11/19 [facility] Presacral mass (~09/15/18) 09/15/18 [facility] Sciatica right, epidural injuections [facility] Tubular adenoma of colon (01/28/17) Urinary incontinence 01/24/13 urethral suspension and sling at [facility] (bladder suspension 1991) 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 Bladder repair. Repair bladder injury, simple S/P laparoscopic cholecystectomy (~05/19/22) Family History Mother No problems noted. Father , DROWNED at age 50. No problems noted. Sister Personal history of malignant neoplasm MELANOMA Sister No problems noted. Grandfather Personal history of malignant neoplasm STOMACH Grandfather Personal history of malignant neoplasm PROSTATE Grandmother Heart disease [place] Acute ill-defined cerebrovascular disease Grandmother Personal history of malignant neoplasm UTERINE Aunt , [place] Heart disease [place] Aunt , [place] Heart disease Brother No problems noted. Social History Smoking/Tobacco Use Status: Never Smoking risk assessment performed?: Yes Alcohol Intake: current Alcohol Intake frequency: 3 or more drinks per day Alcohol type: hard liquor Drug use: Never Substance use type: does not use Details: Last alcoholic drink Mike zhong, 2 days ago Housing: apartment Current gender identity: female Do you feel safe at home: Yes Do you feel safe in your relationship?: No Additional Social history: Has 1 dog, 4 cats. Readmission Within the Past 30 Days Yes or No: Yes Date of First Admission Date of 1st Admission: 02/16/23 Date of this Admission Date of Admission: 03/04/23 This admission was: Through ED Office Visit Since 1st Admission Have you seen your PCP in the office since discharge?: No Had an appointment Been Scheduled?: Yes Date of Scheduled Appointment: 03/15/23 Speicalist Appointments Have you seen any other specialist since your 1st Admission?: No I. Interview patient and/or Family Difficulty reaching your doctor or getting an office appt?: No Have you had trouble purchasing/ or taking medication?: No Have you had trouble with getting meals at home?: No Were services received that you thought were set up on disch: Yes What services were received?: RAJI RN Did you call your physician beore you came to the ED?: No If the patient had a VNA ordered Did the patient have a VNA order?: Yes Did you call the VNA before you came?: No ED visits How many ED visits in the past 12 months: 27 Assessment for Readmission Summary of readmission circumstances, based upon interviews: Leticia stated that she had a difficult time getting into her home after discharge, and has fallen at home since. She called EMS to help her up, and she resisted returning to the hospital the first time, but decided to be transported by EMS the second time. She remains resistant to placement, due to her concern of the abandonment of her pets. She did state that she feels she needs some time to rest and get stronger prior to returning home. CM suggested that this happen at a facility, which would be appropriate. She stated that she would revisit this when she was feeling better, as she did not feel well during the conversation. CM will continue to support discharge planning considerations.
--- NOTE | 2023-03-05 13:42 | TELEP.MEDREC ---
Date of service: 03/05/23 Time of Service: 13:43 Telepharmacy Home Med Rec Allergies Allergies: Penicillins Allergy (Mild, Verified 03/04/23 05:24) Rash ramipril Allergy (Unknown, Verified 03/04/23 05:24) ITCHING meperidine [From Demerol] Adverse Reaction (Severe, Verified 03/04/23 05:24) Nausea bupropion Adverse Reaction (Mild, Verified 03/04/23 05:24) GI upset AMBER Inhibitors Adverse Reaction (Unknown, Verified 03/04/23 05:24) COUGH alendronate sodium Adverse Reaction (Unknown, Verified 03/04/23 05:24) GI Distress clarithromycin Adverse Reaction (Unknown, Verified 03/04/23 05:24) intolerant paroxetine Adverse Reaction (Unknown, Verified 03/04/23 05:24) Diarrhea Interview Person Interviewed: Prescription list from [facility] courtesy of [facility] Service Quality Quality of Interview/Accuracy of Medication List: Excellent Sources Sources used to compile medication list: Retail Pharmacy Changes made to Home Medication List: ADDITIONS: None DELETIONS: Amlodipine Fidaxomicin Folic acid Furosemide 20 (order for 40 mg still active) Lifitegrast gtt Metoprolol tartrate Metronidazole Mirabegron Mirtazapine Ondansetron Pantoprazole (duplicate, one order still active) Quetiapine Saccharomyces boulardii Spironolactone Sucralfate Valacyclovir Venlafaxine CHANGES: None Additional Notes Additional Notes: Pt very unfamiliar with her meds. Reports she just gets blister packs from [facility] and takes what she is directed to. Unable to verify pt use of OTC meds but pt likely compliant w/ rx meds left on med list (unsure of last admin times of prns). Pt had furosemide and fluticasone prescribed on 03/02/23 (possible she has not had a chance to product picker yet), otherwise has not received a maintenance med since August. Pt has completed several acute abx courses recently- Zpak finished on 02/15/23, fosfomycin 3 g x 1 dose on 02/10, cephalexin 500 mg po bid x 7 days on 02/07, fidaxomicin 200 mg po bid x 10 days on 01/28, and metronidazole 500 mg po tid x 10 days on 01/28. Recommended Changes Recommended Changes(reason for recommendation): Recommend discontinuing loperamide if pt being treated for C. diff diarrhea to prevent toxins lingering in GI tract longer. Attestation: The home medication list is now updated to the best of my knowledge and is ready to be reconciled by the provider. Please contact the TelePharmacy Medication Reconciliation Pharmacist at for any questions.
--- NOTE | 2023-03-05 15:46 | W.PM.PROGNOT ---
Date of Service Date of service: 03/05/23 Time of Service: 15:46 Assessment and Plan Assessment and plan (1) Acute on chronic anemia: Status: Acute Assessment and plan: Hgb mildly lower than on admission; likely dilutional. Hgb is in the range it has been during last admission. (2) Ascites due to chronic alcoholic hepatitis: Status: Chronic Assessment and plan: Paracentesis last time she was in the hospital and developed a leak, a suture was placed that remains in place; she is re-accumulating fluid which was expected. Continue lasix and spironalactone stitch is absorbable so no suture removal needed. (3) C. difficile colitis: Status: Resolved Assessment and plan: Continued Dificid 200 mg BID intitially. C.Diff now negative. Stop antibiotic after today. Had been on dificid and IV flagly during hospitalization of 02/16/23 through 03/04/23 and discharged on Dificid (4) Depression: Status: Chronic Assessment and plan: Continue home meds (5) Hypomagnesemia: Status: Chronic Assessment and plan: Repleted. (6) Alcohol abuse: Status: Chronic Assessment and plan: No evidence for acute alcohol withdrawal Etoh level neg on admission. Encourage ongoing cessation. Thiamine 100 mg daily Multivitamin Folic acid (7) DVT prophylaxis: Status: Acute Assessment and plan: SCDs (8) Discharge planning issues: Status: Acute Assessment and plan: She is followed by palliative and measures are seeming futile at this point. Consulted palliative to readdress goals of care and limits of care and consider transitioning more to a comfort focused or hospice at this point. Subjective Subjective Patient reports: no new complaints; denies diarrhea, nausea, vomiting, shortness of breath or afebrile Exam Narrative Exam Narrative: GENERAL: appears ill, fatigued. EYES: scleral clear. EARS/NOSE/THROAT Mucous membranes moist, RESPIRATORY poor inspiratory effort, no accessory muscle use. Clear. CARDIAC RRR. S1, S2. ABDOMINAL distended abdomen with cutaneous edema. Suture in the right upper quadrant of the abdomen from previous paracentesis. No focal tenderness no ecchymosis NEUROLOGICAL Speech is clear and appropriate. Normal level of consciousness. No lateralizing deficits PSYCH; appropriate affect. Judgement/competence is appropriate Objective Last Vital Signs Temp 36.1 C L 03/05/23 15:00 Pulse 107 H 03/05/23 15:00 Resp 22 03/05/23 15:00 BP 108/65 03/05/23 15:00 Pulse Ox 97 03/05/23 15:00 Laboratory Results - last 24 hr 03/05/23 03/05/23 07:05 07:05 WBC 3.75 L RBC 2.64 L Hgb 8.7 L Hct 27.9 L MCV 106 H MCH 33.0 MCHC 31.2 L RDW 18.9 H Plt Count 202 MPV 10.2 Immature Gran % 0.5 Neutrophils % 71.8 Lymphocytes % 20.5 Monocytes % 6.1 Eosinophils % 0.3 Basophils % 0.8 Nucleated RBC % 0.0 Absolute Neutrophils 2.69 Absolute Lymphocytes 0.77 L Absolute Monocytes 0.23 Absolute Eosinophils 0.01 Absolute Basophils 0.03 Sodium 142 Potassium 3.0 L Chloride 110 H Carbon Dioxide 18.7 L Anion Gap 13.3 H BUN 8 Creatinine 0.8 Est GFR (CKD-EPI 2020) 76.31 Glucose 153 H Calcium 8.7 Magnesium 2.3 PAWSS Pt Consumed Any Amount of Alcohol Within the Last 30 days OR had positive MIGUELINA Upon Admission: Yes Time Spent with Patient Time Spent with Patient: 25-34 minutes Time was spent: preparing to see the patient(eg.review tests), obtaining and/or reviewing separately otained hiistory, ordering medications,tests, procedures, referring, communicating with other health medicare sales executive, indepentently interpreting results and counseling the patient
[2023-03-05] MEDS: Potassium Chloride 20 MEQ TABCR PO (18:47)
[2023-03-05] MEDS: POTASSIUM CHLORIDE 10 MEQ/100 ML BAG 100 MEQ IVPB ×2 (18:55→20:13)
[2023-03-05] MEDS: Melatonin 3 MG TAB 6 MG PO (20:09)
[2023-03-05] MEDS: Mirtazapine 15 MG TAB 7.5 MG PO (20:10)
[2023-03-05] MEDS: Loperamide 2 MG CAP PO (20:10)
[2023-03-05] MEDS: Lidocaine Patch Removal 2 EACH TP (21:20)
[2023-03-06] VITALS (39 sets, daily range): BP systolic 89–132; BP diastolic 49–84; PULSE 101–142; RESP 19–36; TEMP 36.3–37; O2SAT 89–99
--- NOTE | 2023-03-06 | DI.CT_ITS ---
Exam(s) CT CHEST PE CTA EXAM: CT CHEST PE CTA CLINICAL HISTORY: Chest pain, Shortness of air.. TECHNIQUE: Imaging Protocol: CT angiography of the chest was performed using pulmonary embolus tari col. Multi planar reconstructions were performed. CONTRAST MATERIAL: Intravenous: Omnipaque 350 Contrast volume: 100 cc COMPARISON: CR,XR XR CHEST 1V IN DI DEPT from 03/04/[address] ABDOMEN PELVIS WO from 03/04/2023 CR,XR XR PORTABLE CHEST AP from 03/06/2023 FINDINGS: CHEST: PULMONARY ARTERIES: There are no intraluminal filling defects to suggest acute pulmonary emboli. LUNGS: Increasing size bilateral pleural effusions with volume loss in the basal segments of both low er lobes. Right pleural effusion is larger than the left pleural effusion. Pleural fluid extends in to the major fissure on the left side. There are also increase interstitial and confluent infiltrate s in the para-suprahilar regions bilaterally. Suspect pulmonary edema. MEDIASTINUM: There is no hilar nor mediastinal adenopathy. CARDIAC: Mild cardiomegaly. No shift of the interventricular septum.Ascending thoracic aorta is enla rged, measuring 4 cm. PARTIALLY VISUALIZED UPPERMOST ABDOMEN: Abundant ascites again noted. Cirrhotic appearing liver. OSSEOUS: Multiple bilateral nonacute/healed rib fractures again noted. No acute fractures.. IMPRESSION: 1. No evidence of acute pulmonary emboli. No evidence of pulmonary infarction. 2. However, there are increasing size bilateral pleural effusions, right larger than left, and pulmon natasha infiltrates which have the appearance of probable pulmonary edema. There is volume loss/atelecta sis in the basal segments of both lower lobes, this related to the pleural effusions. 3. Enlarged ascending thoracic aorta measuring 4 cm. No obvious dissection although the contrast is predominately in the pulmonary arteries. No obvious intrathoracic adenopathy. Multiple bilateral healed rib fractures. No acute fractures evident. RADIATION DOSE DELIVERED: 348.65mGy.cm Total DLP DATA REPOSITORY: All CT scans at this facility are submitted to the National Radiology Data Registry (NRDR) Dose Index Registry (DIR) with the [employer] (A[employer]). RADIATION OPTIMIZATION: All CT scans at this facility use at least one of these dose optimization te chniques: automated exposure control; mA and/or kV adjustment per patient size (includes targeted exa ms where dose is matched to clinical indication); or iterative reconstruction.
[2023-03-06 06:49] LABS: Anion Gap 9.4 mmol/L (3-11); BUN 7 mg/dL (7-18); CO2 20.6 mmol/L (21.0-32.0); CREATININE 0.9 mg/dL (0.55-1.02); Calcium 8.7 mg/dL (8.5-10.1); Chloride 111 mmol/L (98-107); Estimated GFR 66.26 (mL/min/1.73m2); Glucose 142 mg/dL (74-106); Potassium 4.4 mmol/L (3.5-5.1); Sodium 141 mmol/L (136-145)
[2023-03-06] MEDS: Budesonide 0.5 MG/2 ML UPD VIAL IH (07:37)
[2023-03-06] MEDS: Normal Saline Flush 10 ML SYR IVP ×2 (07:51→11:53)
[2023-03-06] MEDS: Lidocaine 5% Patch 2 PATCH TP (07:51)
[2023-03-06] MEDS: Refresh PLUS Eye Drops 0.4ml OU ×3 (07:52→12:00)
[2023-03-06] MEDS: LORazepam 0.5 MG TAB PO ×3 (07:59→19:08)
[2023-03-06] MEDS: Cholestyramine/Aspartame PKT 1 EACH PO ×2 (10:48→19:07)
--- NOTE | 2023-03-06 10:57 | PT.INTREAT ---
PT Notes Visit Reasons: Fall,dehydration,symptomatic hypotension Inpatient Physical Therapy Treatment Note [facility] Date: 03/06/23 PRECAUTIONS:Low bp SUBJECTIVE: Pt reports that she has been experiencing panic attacks and is not doing well today because of that. She states that she is waiting for the doctor and they are going to try and change her medication to help with the attacks. OBJECTIVE: THEREX: Due to pt not feeling well she reports not being able to sit at the OOB or get OOB at this time. Pt completed shoulder horz abd x 10, rowing x 10, hip abd x 10, and ankle pumps x 10 and then began to have another panic attack and was not able to continue. ASSESSMENT: Pt was having a difficult day today and was not able to tolerate much PT because of her panic attacks. PLAN: Cont as per PT POC as per kevin. TREATMENT CODE/TIME: 10:10-10:30 (20) TP
--- NOTE | 2023-03-06 11:30 | RT.EKG_ITS ---
APPROVED REPORT Exam: Resting ECG Reason for Exam: Shortness of air, chest pressure Patient Location: I HR:136 bpm ECG Measurements Heart Rate 136 AXIS GA 165 P 24 QRSd 80 QRS -22 QT 334 T 166 QTc 503 Conclusion Sinus tachycardia...rate> 99 Borderline left axis deviation...QRS axis (-15,-29) Low voltage, precordial leads...precordial leads <1.0mV Consider anterior infarct...Q >30mS in V2-V5 Nonspecific T abnormalities, lateral leads...T <-0.10mV, I aVL V5 V6 Baseline wander in lead(s) V2
[2023-03-06] MEDS: MORPHine 2 MG/ML SYR IVP (11:53)
[2023-03-06 12:26] LABS: Troponin I 83 ng/L (<or=60)
[2023-03-06] MEDS: Heparin in 0.45% NaCl 25,000 UNIT/250 ML BAG 8.5 UNIT IV (13:14)
[2023-03-06] MEDS: Metoprolol 5 MG/5 ML VIAL IVP (13:19)
[2023-03-06] MEDS: nitroGLYcerin in D5W 50 MG/250 ML BTL IV (13:27)
[2023-03-06] MEDS: Heparin in 0.45% NaCl 25,000 UNIT/250 ML BAG 850 UNIT IV (13:27)
[2023-03-06 13:29] LABS: PTT Activated 23.9 sec (21.5-31.9)
--- NOTE | 2023-03-06 14:10 | DI.RAD_ITS ---
Exam(s) XR PORTABLE CHEST AP EXAM: XR PORTABLE CHEST AP CLINICAL HISTORY: Shortness of breath, elevated troponin TECHNIQUE: 2D digital imaging was performed. COMPARISON: CR,XR XR CHEST 1V IN DI DEPT from 03/04/[address] ABDOMEN PELVIS WO from 03/04/2023 FINDINGS: Leads overlie the chest Small left pleural effusion. Old left rib fractures. The heart is enlarged, unchanged. The majorit y of the left lung base is obscured by the cardiac silhouette and fusion. Infiltrates not excluded. Prominence of the pulmonary vasculature. Underlying fibrotic changes. IMPRESSION: Small left pleural effusion. Pulmonary edema. DATA REPOSITORY: RADIATION DOSE DELIVERED:
[2023-03-06] MEDS: Midodrine 2.5 MG TAB 5 MG PO ×2 (14:23→19:07)
[2023-03-06] MEDS: Aspirin 81 MG CHEW 162 MG PO (14:24)
--- NOTE | 2023-03-06 14:25 | DI.VRAD_ITS ---
PROCEDURE INFORMATION: Exam: XR Chest Exam date and time: 03/06/2023 1:54 PM Age: 77 years old Clinical indication: Patient HX: Shortness of breath, elevated troponin TECHNIQUE: Imaging protocol: Radiologic exam of the chest. Views: 1 view. COMPARISON: CR XR CHEST 1V IN DI DEPT 03/04/2023 6:51 AM FINDINGS: Lungs: Increased central pulmonary vascular congestion. Pleural spaces: Suspected small left pleural effusion. Heart/Mediastinum: Stable mild cardiomegaly. Bones/joints: Stable osteotomy defect distal left clavicle. IMPRESSION: 1. Increased central pulmonary vascular congestion. 2. Suspected small left pleural effusion. Dictated and Authenticated by: Iris Chase MD. Ordering:KALEY Perrin MD
[2023-03-06] MEDS: FUROSEMIDE 20 MG, FUROSEMIDE 40 MG 60 MG IVP (15:00)
[2023-03-06 15:38] LABS: Troponin I 79 ng/L (<or=60)
[2023-03-06 15:39] LABS: NT-proBNP > 35000 pg/mL (<300)
[2023-03-06] MEDS: Normal Saline - Diluent 50 ML VIAL IJ (16:33)
--- NOTE | 2023-03-06 16:43 | W.PM.PROGNOT ---
Date of Service Date of service: 03/06/23 Time of Service: 16:44 Assessment and Plan Assessment and plan (1) Acute congestive heart failure: Status: Acute Assessment and plan: No previous history of CHF. + pulmonary edema and pleural effusions on CXR and CTA chest. NTProBNP > 61162. Lasix 60mg IV administered. Schedule 40mg IV daily. Echocardiogram ordered: no previous echocardiogram in chart EKG with concern of anterior Q-waves and T-wave abnormality. Troponin 83. Transferred to the ICU Heparin drip with initial bolus and nitroglycerin drip initiated. Aspirin 162mg given. Had received her usual 81mg in the AM. Her ashen skin coloration improved and her shortness of air and chest pressure resolved. Metoprolol IV administered for sinus tachycardia with good results. Second troponin lower at 79. Stopped IV nitro and heparin to administer contrast for CTA. Initiated therapeutic lovenox to continue for ACS tx and potential pulmonary embolism tx. CTA chest w/o pulmonary embolism. Likely NSTEMI. Will change lovenox back to prophylactic dosing. (2) Acute on chronic anemia: Status: Acute Assessment and plan: Hgb mildly lower than on admission; likely dilutional. Hgb is in the range it has been during last admission. (3) Acute respiratory failure with hypoxia: Status: Acute Assessment and plan: Mild hypoxemia. Now on 2L supplemental O2. Secondary to pulmonary edema. (4) Ascites due to chronic alcoholic hepatitis: Status: Chronic Assessment and plan: Paracentesis last time she was in the hospital and developed a leak, a suture was placed that remains in place; she is re-accumulating fluid which was expected. Continue lasix and spironalactone stitch is absorbable so no suture removal needed. Ascites and bilateral pleural effusions noted on CTA chest. Discuss with gen surg tomorrow regarding paracentesis. (5) C. difficile colitis: Status: Resolved Assessment and plan: Resolved and off tx. (6) Depression: Status: Chronic Assessment and plan: Continue home meds (7) Hypomagnesemia: Status: Chronic Assessment and plan: Repleted. (8) Alcohol abuse: Status: Chronic Assessment and plan: No evidence for acute alcohol withdrawal Etoh level neg on admission. Encourage ongoing cessation. Thiamine 100 mg daily Multivitamin Folic acid (9) DVT prophylaxis: Status: Acute Assessment and plan: SCDs (10) Discharge planning issues: Status: Acute Assessment and plan: She is followed by palliative and measures are seeming futile at this point. Consulted palliative to readdress goals of care. She decided she wanted to be a full code after todays events, but then could not decide on what status she desired. Subjective Subjective Patient reports: afebrile Interval history since last seen: On initial evaluation this AM, patient was feeling generally OK. She had an episode of shortness of breath last night that resolved with ativan. Pt developed SOA later this AM; not improved with ativan. Then stated she had some chest pressure. Transferred to ICU; See A&P. Exam Narrative Exam Narrative: GENERAL: Pt initially appeared better and in NAD. Later in the AM she appeared pale and was in respiratory distress. EYES: scleral clear. EARS/NOSE/THROAT Mucous membranes moist, RESPIRATORY: Tachypnea. Clear. CARDIAC Tachycardia. ABDOMINAL distended abdomen with cutaneous edema. Suture in the right upper quadrant of the abdomen from previous paracentesis. No focal tenderness no ecchymosis NEUROLOGICAL Speech is clear and appropriate. Normal level of consciousness. No lateralizing deficits PSYCH; appropriate affect. Judgement/competence is appropriate Objective Last Vital Signs Temp 36.6 C 03/06/23 13:00 Pulse 110 H 03/06/23 15:55 Resp 27 H 03/06/23 15:55 BP 110/73 03/06/23 15:55 Pulse Ox 97 03/06/23 15:55 Laboratory Results - last 24 hr 03/06/23 03/06/23 03/06/23 06:17 11:50 13:07 APTT 23.9 Sodium 141 Potassium 4.4 D Chloride 111 H Carbon Dioxide 20.6 L Anion Gap 9.4 BUN 7 Creatinine 0.9 Est GFR (CKD-EPI 2020) 66.26 Glucose 142 H Calcium 8.7 Troponin I 83 H* NT-Pro-B Natriuret Pep 03/06/23 03/06/23 03/06/23 15:08 15:08 18:49 APTT Sodium Potassium Chloride Carbon Dioxide Anion Gap BUN Creatinine Est GFR (CKD-EPI 2020) Glucose Calcium Troponin I 79 H* Cancelled NT-Pro-B Natriuret Pep > 06170 H PAWSS Pt Consumed Any Amount of Alcohol Within the Last 30 days OR had positive MIGUELINA Upon Admission: Yes Time Spent with Patient Time Spent with Patient: >50 minutes Time was spent: preparing to see the patient(eg.review tests), obtaining and/or reviewing separately otained hiistory, ordering medications,tests, procedures, referring, communicating with other health healthcare economics manager, indepentently interpreting results, counseling the patient and care coordination
[2023-03-06] MEDS: Omnipaque 350 MG/ML 100 ML BTL IJ (16:46)
--- NOTE | 2023-03-06 17:27 | DI.VRAD_ITS ---
PROCEDURE INFORMATION: Exam: CTA Chest With Contrast Exam date and time: 03/06/2023 4:40 PM Age: 77 years old Clinical indication: Other: Chest pain, shortness of breathe TECHNIQUE: Imaging protocol: Computed tomographic angiography of the chest with contrast. Exam focused on the arteries. 3D rendering (Not supervised by radiologist): MIP and/or 3D reconstructed images were created by the technologist. Contrast material: 350; Contrast volume: 100 ml; Contrast route: INTRAVENOUS (IV); COMPARISON: CT CHEST PE CTA 07/01/2022 9:55 PM FINDINGS: Pulmonary arteries: Normal. No pulmonary emboli. Aorta: Unremarkable. No aortic aneurysm. No aortic dissection. Thyroid: The thyroid gland is normal. Lungs: Central ground-glass opacities with smooth thickening of the interlobular septa is consistent with pulmonary edema. Compressive atelectatic changes adjacent to the pleural effusions. Pleural spaces: Small left and moderate right pleural effusions. No pneumothorax. Heart: Moderate multi chamber cardiac enlargement. No pericardial effusion. Lymph nodes: Unremarkable. No enlarged lymph nodes. Liver: The liver is likely enlarged. There is a lobulation of the liver edge consistent with cirrhosis. Intraperitoneal space: There is a moderate amount of ascites. Bones/joints: Multiple healed bilateral rib fractures. No acute fracture. Soft tissues: Unremarkable. IMPRESSION: 1. No acute pulmonary embolism, thoracic aortic aneurysm or dissection. 2. Probable cardiac decompensation with moderate pulmonary edema. 3. Bilateral mipik-ihkjxko-crvo-left pleural effusions with adjacent atelectasis. 4. Probable cirrhosis with pleural effusions and ascites Dictated and Authenticated by: Nakul Mcfadden MD. Ordering:KALEY Perrin MD
[2023-03-06 18:30] LABS: Troponin I 76 ng/L (<or=60)
[2023-03-06] MEDS: Ferrous Sulfate 325 MG TAB PO (19:07)
[2023-03-06] MEDS: QUEtiapine 25 MG TAB 12.5 MG PO (19:07)
[2023-03-06] MEDS: Mirtazapine 15 MG TAB 7.5 MG PO (19:08)
[2023-03-06] MEDS: busPIRone 5 MG TAB PO (19:08)
[2023-03-06] MEDS: Acetaminophen 325 MG TAB PO (19:08)
[2023-03-06] MEDS: Famotidine 20 MG TAB 40 MG PO (19:08)
[2023-03-06] MEDS: Melatonin 3 MG TAB 6 MG PO (19:08)
[2023-03-06] MEDS: Sucralfate 1 GM TAB PO (19:09)
[2023-03-06] MEDS: Lidocaine Patch Removal 2 EACH TP (19:09)
[2023-03-07] VITALS (31 sets, daily range): BP systolic 89–132; BP diastolic 55–79; PULSE 100–136; RESP 18–32; O2SAT 85–94
--- NOTE | 2023-03-07 07:59 | W.PALLCONSUL ---
Date of service: 03/07/23 Time of Service: 08:00 History of Present Illness History of Present Illness Chief Complaint: SOB Narrative: Julia is a 77-year-old woman who is well-known to both inpatient and outpatient physicians. She has cirrhosis and abdominal ascites, frequent pancreatitis, esophageal varices, pulmonary hypertension, alcoholism, and poor prognostic awareness. She was at home for a couple of days after having spent time in the hospital. She refuses to go to a rehab center. She has burned many bridges as far as health. When she was at home she said she had a panic attack, came back into the hospital and after her admission had some sort of an event. She was found to have of the BNP around 35,000. She is due for an echo today. Again she has multiple admissions, has poor prognostic awareness, all she wants to do is to go home. Assessment and Plan Assessment and plan (1) Acute congestive heart failure: Status: Acute (2) Acute respiratory failure with hypoxia: Status: Acute (3) C. difficile diarrhea: Status: Acute (4) Hypotension: Status: Acute (5) Portal hypertension: Status: Chronic (6) Cirrhosis of liver with ascites: Status: Acute (7) Palliative care patient: Status: Acute Assessment and plan: CHF - echo ordered. This is another organ which is failure due to her very poor health C Diff continue the antibx Overall, she is failing despite what we do. I agree with Dr Joy that this care is futile. I have told Leticia this. She has 2 wishes: to watch Renny Nirmal on TV and to be home with her animals - even if it means she is dying. After much discussion, she agrees to comfort care at [facility] for 24 hours and then transition to hospice if they will accept her. A caregiver is an impediment, but short term maybe 25 hr care can be arranged. She refuses [facility] care. She has little to no prognostic awareness and despit are conversation revoling around her dying and multi organ failure, she still wants to go home, knowing that she may soon. I did relay this to Dr Joy Review of Systems Narrative: She tells me that she feels fine but wants to go home PFSH All Active Problems (Updated 03/07/23 @ 08:01 by Genoveva Young MD, DC) Palliative care patient (Acute) Acute congestive heart failure (Acute) Acute respiratory failure with hypoxia (Acute) Hypomagnesemia (Acute) Dehydration (Acute) C. difficile diarrhea (Acute) Hypotension (Acute) Discharge planning issues (Acute) DVT prophylaxis (Acute) Hypomagnesemia (Chronic) Acute on chronic anemia (Acute) Ascites due to chronic alcoholic hepatitis (Chronic) Colitis due to Clostridium difficile (Acute) Anemia (Chronic) Portal hypertension (Chronic) Macrocytic anemia (Acute) Lung cancer (Chronic) RUL Pneumothorax after biopsy (Acute) 01/19/23 Per [facility] CXR. -hb Soft tissue mass (Acute) 12/29/22 PET at [facility] Avid lobulated pre-sacral. -hb Hypokalemia (Acute) Alcohol abuse (Chronic) Multiple rib fractures (Chronic) 03/11/19 [facility] Alcohol withdrawal (Acute) Hypomagnesemia (Acute) Breast nodule (Acute) Sleep disturbance (Acute) Sinus tachycardia (Acute) High anion gap metabolic acidosis (Acute) Elevated blood pressure reading with diagnosis of hypertension (Acute) Pincer nail deformity (Acute) Insomnia (Acute) Thrombocytopenia (Chronic) Elevated bilirubin (Acute) Mixed stress and urge urinary incontinence (Acute) Thyroid nodule (Acute) Anxiety (Chronic) Adverse effect of metronidazole (Acute) Medication monitoring encounter (Acute) Advance care planning (Acute) Cirrhosis of liver with ascites (Acute) Animal bite of right hand with infection (Acute) Umbilical hernia (Acute) Hyperbilirubinemia (Acute) Shortness of breath (Acute) Elevated blood pressure reading without diagnosis of hypertension (Acute) Left arm pain (Acute) Ambulatory dysfunction (Acute) Incontinence (Acute) Anorexia (Acute) Headache (Acute) Depression (Chronic) Chest pain (Acute) Foot pain, right (Acute) Tendinitis of left rotator cuff (Acute) Macrocytosis (Acute 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 Leukopenia (Acute) Headache (Acute) Epigastric abdominal pain (Acute) Calcific tendinitis of left shoulder (Acute) Pulmonary mass (Acute) spiculated mass Pneumonia (Acute) Depression with suicidal ideation (Acute) Alcohol abuse (Chronic) Diarrhea (Acute) Epigastric pain (Acute) Dehydration (Acute) Difficult intravenous access (Acute) Multiple IV attempts, usually requires ultrasound placement. PTSD (post-traumatic stress disorder) (Acute) Anemia (Chronic) Depression (Chronic) Foot pain, right (Acute) T12 compression fracture (Acute) Presacral mass (Chronic) Deviated nasal septum (Acute) Frequent falls (Chronic) Head injury (Acute) Ambulatory dysfunction (Chronic) Shoulder pain, right (Chronic) Suicidal ideation (Acute) Dry eye (Acute) Pruritus (Acute) Dystrophic nail (Acute) AMBER (acute kidney injury) (Acute) Iron deficiency anemia (Chronic) Fall (Acute) Atelectasis of left lung (Chronic) Advance directive on file (Acute) Nodule of upper lobe of right lung (Acute ~09/13/18) 01/19/23 Increased in size per [facility]. -hb 09/13/18 [facility]; 12mm SPICULATED -kb Cataract (Chronic 11/07/15) Hypertension (Chronic) high today; she will check readings at home Hyperlipidemia (Chronic) Back pain, chronic (Chronic) Depression (Chronic) Osteopenia (Chronic) Medical History (Updated 03/07/23 @ 08:01 by Genoveva Young MD, DC) Adjustment disorder with depressed mood Alcoholic ketosis Anemia Cervical radicular pain neck pain and DJD [facility] 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) pls refrain from alcohol Chronic alcoholism she will not stop drinking unless she checks with me, so that we can help her avert withdrawal I do not think she is capable on her own--she would need placement to achieve required goal of 3 months of sobriety Chronic diarrhea Closed right humeral fracture Corneal ulcer, right (~08/23/18) 08/23/18; [facility] Fracture of humerus, left, closed Genital herpes simplex recurrent gential; suppressive Valtrex GERD (gastroesophageal reflux disease) GI bleed (12/20/16) Hypertension Hypokalemia Hypomagnesemia Incidental lung nodule, greater than or equal to 8mm 1cm, spiculated, stable for many years, recommend f/u in 6 mo Non-cardiac chest pain (09/21/16) [facility] 09/21/16 NEGATIVE MP Osteoarthritis Palliative care patient (03/21/17) Pancreatitis, alcoholic, acute Peripheral edema Photophobia of right eye Pleural effusion on left 03/11/19 [facility] Presacral mass (~09/15/18) 09/15/18 [facility] Sciatica right, epidural injuections [facility] Tubular adenoma of colon (01/28/17) Urinary incontinence 01/24/13 urethral suspension and sling at [facility] (bladder suspension 1991) 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 Bladder repair. Repair bladder injury, simple S/P laparoscopic cholecystectomy (~05/19/22) Family History Mother No problems noted. Father , DROWNED at age 50. No problems noted. Sister Personal history of malignant neoplasm MELANOMA Sister No problems noted. Grandfather Personal history of malignant neoplasm STOMACH Grandfather Personal history of malignant neoplasm PROSTATE Grandmother Heart disease DC Acute ill-defined cerebrovascular disease Grandmother Personal history of malignant neoplasm UTERINE Aunt , DC Heart disease DC Aunt , DC Heart disease Brother No problems noted. Social History Smoking/Tobacco Use Status: Never Smoking risk assessment performed?: Yes Alcohol Intake: current Alcohol Intake frequency: 3 or more drinks per day Alcohol type: hard liquor Drug use: Never Substance use type: does not use Details: Last alcoholic drink Mike zhong, 2 days ago Housing: apartment Current gender identity: female Do you feel safe at home: Yes Do you feel safe in your relationship?: No Additional Social history: Has 1 dog, 4 cats. Exam Narrative Exam Narrative: She is lying in bed, her respiratory rate is normal. She is not exerting any effort to breathe. I did ask her to get out of bed and to try walking, but she declined. She stated that all she wants to do is to go home Results Last Vital Signs Temp 97.9 F 03/06/23 19:50 Pulse 108 H 03/07/23 06:00 Resp 26 H 03/07/23 06:00 BP 112/74 03/07/23 06:00 Pulse Ox 92 03/07/23 06:00 FINDINGS: CHEST: PULMONARY ARTERIES: There are no intraluminal filling defects to suggest acute pulmonary emboli. LUNGS: Increasing size bilateral pleural effusions with volume loss in the basal segments of both lower lobes.? Right pleural effusion is larger than the left pleural effusion.? Pleural fluid extends into the major fissure on the left side.? There are also increase interstitial and confluent infiltrates in the para-suprahilar regions bilaterally.? Suspect pulmonary edema. MEDIASTINUM: There is no hilar nor mediastinal adenopathy.? CARDIAC: Mild cardiomegaly.? No shift of the interventricular septum.Ascending thoracic aorta is enlarged, measuring 4 cm. ? PARTIALLY VISUALIZED UPPERMOST ABDOMEN: Abundant ascites again noted.? Cirrhotic appearing liver. OSSEOUS: Multiple bilateral nonacute/healed rib fractures again noted.? No acute fractures.. IMPRESSION: 1. No evidence of acute pulmonary emboli.? No evidence of pulmonary infarction. 2. However, there are increasing size bilateral pleural effusions, right larger than left, and pulmonary infiltrates which have the appearance of probable pulmonary edema.? There is volume loss/atelectasis in the basal segments of both lower lobes, this related to the pleural effusions. 3. Enlarged ascending thoracic aorta measuring 4 cm.? No obvious dissection although the contrast is predominately in the pulmonary arteries. No obvious intrathoracic adenopathy. Multiple bilateral healed rib fractures.? No acute fractures evident. Labs 03/05/23 07:05 03/06/23 06:17 Labs: Laboratory Results - last 24 hr 03/06/23 03/06/23 03/06/23 11:50 13:07 15:08 APTT 23.9 Troponin I 83 H* 79 H* NT-Pro-B Natriuret Pep 03/06/23 03/06/23 03/06/23 15:08 17:57 18:49 APTT Troponin I 76 H* Cancelled NT-Pro-B Natriuret Pep > 78772 H 03/06/23 19:30 APTT Cancelled Troponin I NT-Pro-B Natriuret Pep
[2023-03-07] MEDS: Budesonide 0.5 MG/2 ML UPD VIAL IH (08:38)
[2023-03-07] MEDS: QUEtiapine 25 MG TAB 12.5 MG PO ×2 (08:55→20:20)
[2023-03-07] MEDS: Venlafaxine 75 MG CAPCR PO (08:55)
[2023-03-07] MEDS: Scopolamine 1 MG/3 DAYS PATCH TD (08:56)
[2023-03-07] MEDS: Lidocaine 5% Patch 2 PATCH TP (08:57)
[2023-03-07] MEDS: LORazepam 2 MG/ML VIAL IV/SC (08:59)
--- NOTE | 2023-03-07 10:56 | CMPROGNOTE_ITS ---
Date of service: 03/07/23 Time of Service: 10:57 Care Management Progress Note Progress Note Text Progress Note Text: S/O: Leticia was sleeping when CM attempted to visit with her. Per provider, Leticia met with Palliative care today and has made the decision to be placed on comfort measures as of today. CM met with her sister, Robyn today to discuss Leticia's transition to comfort measures. Robyn is not clear if Leticia's son Bennie will attempt to visit her during this hospitalization, but she stated that she will contact him. The provider would like to monitor Leticia for the next 24-48H to determine what level of care she will require; acute vs SNF. CM will send referrals to facilities if it is determined to be appropriate. CM will continue to follow. A: Leticia is a 77 year old female admitted to [facility] on 03/04/23 for fall, dehydration, symptomatic hypotension. P: Anticipate Leticia will return home with a resumption of HH vs SNF for short term rehab. Her transportation will depend on disposition. She will follow up with her PCP and discharge plan of care. CM will continue to follow.
--- NOTE | 2023-03-07 17:13 | NUR.NOTE ---
Nursing Note: notified charge nurse of decreased appetite and disinterest in attempting to eat.
[2023-03-07] MEDS: Lidocaine Patch Removal 2 EACH TP (20:20)
[2023-03-07] MEDS: Refresh PLUS Eye Drops 0.4ml OU (20:20)
[2023-03-07] MEDS: Melatonin 3 MG TAB 6 MG PO (21:47)
[2023-03-07] MEDS: Mirtazapine 15 MG TAB 7.5 MG PO (21:47)
[2023-03-08] MEDS: LORazepam 2 MG/ML VIAL IV/SC (01:24)
[2023-03-08] MEDS: MORPHine 4 MG/ML SYR IV/SC (01:25)
[2023-03-08] MEDS: Budesonide 0.5 MG/2 ML UPD VIAL IH (08:29)
[2023-03-08 08:33] VITALS: O2SAT 90
--- NOTE | 2023-03-08 08:52 | PDOC.CMPRO ---
Date of service: 03/08/23 Time of Service: 16:22 Care Management Progress Note Progress Note Text Progress Note Text: S/O: Leticia was transitioned to comfort care after meeting with Palliative Care yesterday. CM met with her this afternoon. She has been sleeping much of the day but CM was able to rouse her long enough to have a brief conversation. Leticia's son Bennie contacted CM this today, requesting information about Leticia's condition and prognosis. Leticia's sister reached out to update him yesterday about Leticia's decision to go on comfort care. CM spoke with Leticia and asked her if she would like to see Bennie. She stated that it would be nice. CM informed Bennie of her response but was unable to give him any idea about the course her illness will take or what time frame is involved. Bennie informed CM that he and other family members will likely come to visit early next week. He asked that he be notifird if any significant changes occurred before then and CM agreed. A: Leticia is a 77 year old female admitted to [facility] on 03/04/23 for fall, dehydration, symptomatic hypotension. P: Leticia has been transitioned to comfort care. Anticipate she will remain at [facility] for end of life care, but Leticia may make a different choice. She has talked about returning home and there has been some discussion about SNF placement for end of life care. Leticia's son Bennie has contacted CM and may come to visit early next week. CM will follow and continue to support Leticia and any discharge or end of life issues that arise.
[2023-03-08] MEDS: QUEtiapine 25 MG TAB 12.5 MG PO ×2 (09:29→19:50)
[2023-03-08] MEDS: Lidocaine 5% Patch 2 PATCH TP (09:30)
[2023-03-08] MEDS: Venlafaxine 75 MG CAPCR PO (09:30)
[2023-03-08] MEDS: Refresh PLUS Eye Drops 0.4ml OU ×2 (09:30→19:52)
--- NOTE | 2023-03-08 14:02 | PT.INDS ---
PT Notes Visit Reasons: Fall,Dehydration,Symptomatic Hypotension Physical Therapy Inpatient Discharge Summary Date: 03/07/23 Dates of service: 03/05/2023 through 03/06/2023 This is a clinical summary of care provided for the duration of dates listed above. No charge was made in the completion of this documentation. Referring Doctor:? Laly Dumont MD PT Orders: PT CONSULT: Limited ability Precautions: Fall risk Patient Profile/Admitting Diagnosis:??This is a 77 year old patient with a longstanding history of alcohol abuse and with a recent discharge from this hospital who presented status post mechanical fall. Impacting the right side of her head with fall.? She could not get up she used her medical alarm.? Patient transported via EMS to the hospital.?? PMHX:? All Active Problems?(Updated 03/04/23 @ 19:54 by Jerica Diez NP) Discharge planning issues (Acute) DVT prophylaxis (Acute) Hypomagnesemia (Chronic) Acute on chronic anemia (Acute) Ascites due to chronic alcoholic hepatitis (Chronic) Colitis due to Clostridium difficile (Acute) Anemia (Chronic) Portal hypertension (Chronic) Macrocytic anemia (Acute) Lung cancer (Chronic) RULPneumothorax after biopsy (Acute) 01/19/23? [place] [facility] [place].? -hbSoft tissue mass (Acute) 12/29/22? PET at [facility] Avid lobulated pre-sacral.? -hb Hypokalemia (Acute) Alcohol abuse (Chronic) Multiple rib fractures (Chronic) 03/11/19 [facility] withdrawal [facility]) Hypomagnesemia (Acute) Breast nodule (Acute) Sleep disturbance (Acute) Sinus tachycardia (Acute) High anion gap metabolic acidosis (Acute) Elevated blood pressure reading with diagnosis of hypertension (Acute) Pincer nail deformity (Acute) Insomnia (Acute) Thrombocytopenia (Chronic) Elevated bilirubin (Acute) Mixed stress and urge urinary incontinence (Acute) Thyroid nodule (Acute) Anxiety (Chronic) Adverse effect of metronidazole (Acute) Medication monitoring encounter (Acute) Advance care planning (Acute) Cirrhosis of liver with ascites (Acute) Animal bite of right hand with infection (Acute) Umbilical hernia (Acute) Hyperbilirubinemia (Acute) Shortness of breath (Acute) Elevated blood pressure reading without diagnosis of hypertension (Acute) Left arm pain (Acute) Ambulatory dysfunction (Acute) Incontinence (Acute) Anorexia (Acute) Headache (Acute) Depression (Chronic) Chest pain (Acute) Foot pain, right (Acute) Tendinitis of left rotator cuff (Acute) Macrocytosis (Acute 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 Leukopenia (Acute) Headache (Acute) Epigastric abdominal pain (Acute) Calcific tendinitis of left shoulder (Acute) Pulmonary mass (Acute) spiculated massPneumonia (Acute) Depression with suicidal ideation (Acute) Alcohol abuse (Chronic) Diarrhea (Acute) Epigastric pain (Acute) Dehydration (Acute) Difficult intravenous access (Acute) Multiple IV attempts, usually requires ultrasound placement.PTSD (post-traumatic stress disorder) (Acute) Anemia (Chronic) Depression (Chronic) Foot pain, right (Acute) T12 compression fracture (Acute) Presacral mass (Chronic) Deviated nasal septum (Acute) Frequent falls (Chronic) Head injury (Acute) Ambulatory dysfunction (Chronic) Shoulder pain, right (Chronic) Suicidal ideation (Acute) Dry eye (Acute) Pruritus (Acute) Dystrophic nail (Acute) AMBER (acute kidney injury) (Acute) Iron deficiency anemia (Chronic) Fall (Acute) Atelectasis of left lung (Chronic) Advance directive on file (Acute) Nodule of upper lobe of right lung (Acute ~09/13/18) 01/19/23? Increased in size [place] [facility] -[facility]; 12mm SPICULATED -kbCataract (Chronic 11/07/15) Hypertension (Chronic) high today; she will check readings at homeHyperlipidemia (Chronic) Back pain, chronic (Chronic) Depression (Chronic) Osteopenia (Chronic) Medical History?(Updated 03/04/23 @ 19:54 by Jerica Diez NP) Adjustment disorder with depressed mood Alcoholic ketosis Anemia Cervical radicular pain neck pain and DJD [facility] 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) pls refrain from alcoholChronic alcoholism she will not stop drinking unless she checks with me, so that we can help her avert withdrawal I do not think she is capable on her own--she would need placement to achieve required goal of 3 months of sobrietyChronic diarrhea Closed right humeral fracture Corneal ulcer, right (~08/23/18) 08/23/18; [facility]-kbFracture of humerus, left, closed Genital herpes simplex recurrent gential; suppressive Valtrex GERD (gastroesophageal reflux disease) GI bleed (12/20/16) Hypertension Hypokalemia Hypomagnesemia Incidental lung nodule, greater than or equal to 8mm 1cm, spiculated, stable for many years, recommend f/u in 6 moNon-cardiac chest pain (09/21/16) [facility] [place] NEGATIVE MP Osteoarthritis Palliative care patient (03/21/17) Pancreatitis, alcoholic, acute Peripheral edema Photophobia of right eye Pleural effusion on left 03/11/19 [facility]ral mass (~09/15/18) [facility], epid[facility] injuections [facility] Tubular adenoma of colon (01/28/17) Urinary incontinence 01/24/13 urethral suspension and sling [place] [facility] (bladder suspension 1991) Vision loss of right eye 08/17/18;[facility]-kbWernicke encephalopathy Surgical History? Colonoscopy - MAC (01/28/17) EGD - [facility] (12/20/16) History of bilateral ligation of fallopian tubes History of Surgical Procedure a. Bladder repair.Repair bladder injury, simple S/P laparoscopic cholecystectomy (~05/19/22) Social History/Home Situation: Lives alone in apartment, with two animals. She does not leave her home at all, has family or neighbors bring her groceries. She is unable to get in and out of her apartment, reports 5 men had to help her get in her apartment two days ago. Current Functional Limitations: Requires assist for all bed mobility, and EOB stability. Unable to ambulate or stand due to low BP. Equipment Owned/DME: Walker Subjective: NT. See most recent FOAM CUTTING SUPERVISOR notes. Objective:? General Observation: NT. See most recent FOAM CUTTING SUPERVISOR notes. Mental Status: NT. See most recent FOAM CUTTING SUPERVISOR notes. Pain: NT. See most recent FOAM CUTTING SUPERVISOR notes. Vital Signs: NT. See most recent FOAM CUTTING SUPERVISOR notes. ROM: Right Upper Extremity: Erica flex and abd 90 with pain, she fell on her right side. Otherwise WNL Left Upper Extremity: WFL Right Lower Extremity: WFL Left Lower Extremity: WFL Strength: Right Upper Extremity: Erica flex and abd 3+/5, elbow flex/ext 4/5, wrist and digits 4/5 Left Upper Extremity: Erica flex and abd 3+/5, elbow flex/ext 4/5, wrist and digits 4/5 Right Lower Extremity: Assessed in hooklying due to low BP in sitting - Grossly 4-/5 throughout Left Lower Extremity: Assessed in hooklying due to low BP in sitting - Grossly 4-/5 throughout Sensation:?Intact Bed Mobility/Transfers: Mod A x 1 <>reclined with HOB at 45 deg, to sitting at EOB Unable to tolerate stand or transfer due to low BP, and consequential fatigue Gait:?Unable Balance:? Static Sitting: Poor Dynamic Sitting: Poor Static Standing: Poor Dynamic Standing: Poor Assessment:?? Patient on comfort measures as of 03/07/2023 and discontinued from PT services. Goals: Goals X1 week - all with RW 1. Supine-Sit independent NOT MET 2. Sit-Supine independent NOT MET 3. Sit-Stand independent NOT MET 4. Stand-Sit independent NOT MET 5. Bed-Chair independent NOT MET 6. Chair-Bed independent NOT MET 7. Gait independent with RW NOT MET 8. Stairs 5 with rail, close supervision NOT MET 9. Independent with home exercise program NOT MET 10. Balance good with RW NOT MET DISCHARGE RECOMMENDATIONS: Comfort measures as of 03/07/2023. TREATMENT CODE/TIME:? NC Thank you for the opportunity to participate in the care of this patient. Tawana Cruz PT, DPT, CLT [facility] [place], [place]
--- NOTE | 2023-03-08 17:11 | W.PM.PROGNOT ---
Date of Service Date of service: 03/08/23 Time of Service: 17:11 Assessment and Plan Assessment and plan (1) Comfort measures only status: Status: Acute Assessment and plan: Pt pulled IV out. She is comfortable with prn concentrated oral lorazepam and morphine. She has been comfortable. Lopez catheter in as a comfort measure. (2) Acute congestive heart failure: Status: Acute Assessment and plan: No previous history of CHF. + pulmonary edema and pleural effusions on CXR and CTA chest. NTProBNP > 91480. Lasix 60mg IV administered. EKG with concern of anterior Q-waves and T-wave abnormality. Troponin 83. Transferred to the ICU Heparin drip with initial bolus and nitroglycerin drip initiated. Aspirin 162mg given. Had received her usual 81mg in the AM. Her ashen skin coloration improved and her shortness of air and chest pressure resolved. Metoprolol IV administered for sinus tachycardia with good results. Second troponin lower at 79. Stopped IV nitro and heparin to administer contrast for CTA. Initiated therapeutic lovenox to continue for ACS tx and potential pulmonary embolism tx. CTA chest w/o pulmonary embolism. Likely NSTEMI. Will change lovenox back to prophylactic dosing. Now on comfort measures given her declining status. (3) Acute respiratory failure with hypoxia: Status: Acute Assessment and plan: Supplemental O2 for comfort.. (4) C. difficile colitis: Status: Resolved Assessment and plan: Resolved and off tx. (5) Depression: Status: Chronic Assessment and plan: Continue home meds (6) Discharge planning issues: Status: Deleted Assessment and plan: DNR/DNI Comfort care patient. Subjective Subjective Patient reports: no new complaints and afebrile; denies nausea or vomiting Interval history since last seen: Pt sleeping much of the time. Exam Narrative Exam Narrative: GENERAL: Asleep. Arousable with verbal stimuli. NAD. EARS/NOSE/THROAT Mucous membranes moist, RESPIRATORY: Nonlabored breathing. ABDOMINAL distended abdomen. NTs PSYCH;Affect blunted Objective Last Vital Signs Temp 36.6 C 03/06/23 19:50 Pulse 136 H 03/07/23 08:00 Resp 32 H 03/07/23 08:01 BP 132/79 03/07/23 08:00 Pulse Ox 90 L 03/08/23 08:33 PAWSS Pt Consumed Any Amount of Alcohol Within the Last 30 days OR had positive MIGUELINA Upon Admission: Yes Time Spent with Patient Time Spent with Patient: <25 minutes Time was spent: preparing to see the patient(eg.review tests), counseling the patient and care coordination
[2023-03-08] MEDS: Lidocaine Patch Removal 2 EACH TP (19:53)
[2023-03-08 21:43] VITALS: O2SAT 90
[2023-03-08] MEDS: Senna TAB PO (22:05)
[2023-03-08] MEDS: Mirtazapine 15 MG TAB 7.5 MG PO (22:06)
[2023-03-09] MEDS: Refresh PLUS Eye Drops 0.4ml OU ×7 (00:18→23:40)
[2023-03-09] MEDS: LORazepam 2 MG/1 ML Oral Concentrate 0.5 MG PO ×2 (02:20→11:13)
[2023-03-09] MEDS: Mylanta Suspension 30 ML CUP PO (05:49)
[2023-03-09] MEDS: QUEtiapine 25 MG TAB 12.5 MG PO ×2 (08:23→20:37)
[2023-03-09] MEDS: Venlafaxine 75 MG CAPCR PO (08:23)
[2023-03-09] MEDS: Lidocaine 5% Patch 2 PATCH TP (08:23)
--- NOTE | 2023-03-09 12:33 | CMPROGNOTE_ITS ---
Date of service: 03/09/23 Time of Service: 12:34 Care Management Progress Note Progress Note Text Progress Note Text: S/O: Leticia was lying in bed when CM met with her. She stated that she is not feeling well, as she feels dizzy and nauseas. She asked for her glasses, which she felt would help with the dizziness, but CM did not find them in the room. CM called her sister, Robyn, to ask if she would look at Leticia's home to see if her glasses were left at home. Leticia remains on comfort measures; she may remain at [facility] for end of life care, or transition to a SNF if needed. CM will continue to follow. A: Leticia is a 77 year old female admitted to [facility] on 03/04/23 for fall, dehydration, symptomatic hypotension. P: Leticia has been transitioned to comfort care. Anticipate she will remain at [facility] for end of life care, but Leticia may make a different choice. She has talked about returning home and there has been some discussion about SNF placement for end of life care. Leticia's son Bennie has contacted CM and may come to visit early next week. CM will follow and continue to support Leticia and any discharge or end of life issues that arise.
--- NOTE | 2023-03-09 14:37 | W.PM.PROGNOT ---
Date of Service Date of service: 03/09/23 Time of Service: 14:37 Assessment and Plan Assessment and plan (1) Comfort measures only status: Status: Acute Assessment and plan: Pt pulled IV out. She is comfortable with prn concentrated oral lorazepam and morphine. Lopez catheter in as a comfort measure. (2) Acute congestive heart failure: Status: Acute Assessment and plan: No previous history of CHF. + pulmonary edema and pleural effusions on CXR and CTA chest. NTProBNP > 81171. Lasix 60mg IV administered. EKG with concern of anterior Q-waves and T-wave abnormality. Troponin 83. Transferred to the ICU Heparin drip with initial bolus and nitroglycerin drip initiated. Aspirin 162mg given. Had received her usual 81mg in the AM. Her ashen skin coloration improved and her shortness of air and chest pressure resolved. Metoprolol IV administered for sinus tachycardia with good results. Second troponin lower at 79. Stopped IV nitro and heparin to administer contrast for CTA. Initiated therapeutic lovenox to continue for ACS tx and potential pulmonary embolism tx. CTA chest w/o pulmonary embolism. Likely NSTEMI. Will change lovenox back to prophylactic dosing. Now on comfort measures given her declining status. (3) Acute respiratory failure with hypoxia: Status: Acute Assessment and plan: Supplemental O2 for comfort.. (4) C. difficile colitis: Status: Resolved Assessment and plan: Resolved and off tx. (5) Depression: Status: Chronic Assessment and plan: Continue home meds (6) Discharge planning issues: Status: Deleted Assessment and plan: DNR/DNI Comfort care patient. Subjective Subjective Patient reports: no new complaints and afebrile; denies diarrhea or nausea Interval history since last seen: Intermittent anxiety. Exam Narrative Exam Narrative: GENERAL: Awake. Asks for a drink of water. Then falls asleep. EARS/NOSE/THROAT Mucous membranes moist, RESPIRATORY: Nonlabored breathing. ABDOMINAL distended abdomen. NTs PSYCH;Affect blunted Objective Last Vital Signs Temp 36.6 C 03/06/23 19:50 Pulse 136 H 03/07/23 08:00 Resp 32 H 03/07/23 08:01 BP 132/79 03/07/23 08:00 Pulse Ox 90 L 03/08/23 21:43 PAWSS Pt Consumed Any Amount of Alcohol Within the Last 30 days OR had positive MIGUELINA Upon Admission: Yes Time Spent with Patient Time Spent with Patient: <25 minutes Time was spent: preparing to see the patient(eg.review tests) and referring, communicating with other health intensive care medicine specialist
--- NOTE | 2023-03-09 15:52 | PHA.ACLINA_ITS ---
Renal Dosing Medications needing adjustments: N/A (GARNISHMENT SPECIALIST) Anticoagulation DVT Prophylaxis: N/A (GARNISHMENT SPECIALIST) Therapeutic Anticoagulation: N/A Opiate Usage Evaluate Pain Scale/Pains Meds: Reviewed (PO morphine solution PRN as pt pulled out IV per nursing report) Scheduled Bowel Reg ordered if on Opiates?: No Relevant Labs Electrolytes, C-Reactive P, ESR: N/A (GARNISHMENT SPECIALIST) DM Control DM Control: N/A (GARNISHMENT SPECIALIST) Cardiac Review BP, HR, EF%: N/A (GARNISHMENT SPECIALIST) QTc Review QTc: N/A (GARNISHMENT SPECIALIST) IV to PO Switch IV Medications: Reviewed Home Meds Home Med List reviewed: Reviewed (med rec completed by Telepharmacy) Relevent Home Meds Not ordered & why?: some home meds were discontinued when pt transitioned to GARNISHMENT SPECIALIST Current Meds Current Medication Order Review: Reviewed Comments Comments/Follow Ups: Watch for possible med changes (BM meds, comfort meds).
--- NOTE | 2023-03-09 15:52 | PHA.ACLINAW ---
Renal Dosing Medications needing adjustments: N/A (SPRAY I PAINTER) Anticoagulation DVT Prophylaxis: N/A (SPRAY I PAINTER) Therapeutic Anticoagulation: N/A Opiate Usage Evaluate Pain Scale/Pains Meds: Reviewed (PO morphine solution PRN as pt pulled out IV per nursing report) Scheduled Bowel Reg ordered if on Opiates?: No Relevant Labs Electrolytes, C-Reactive P, ESR: N/A (SPRAY I PAINTER) DM Control DM Control: N/A (SPRAY I PAINTER) Cardiac Review BP, HR, EF%: N/A (SPRAY I PAINTER) QTc Review QTc: N/A (SPRAY I PAINTER) IV to PO Switch IV Medications: Reviewed Home Meds Home Med List reviewed: Reviewed (med rec completed by Telepharmacy) Relevent Home Meds Not ordered & why?: some home meds were discontinued when pt transitioned to SPRAY I PAINTER Current Meds Current Medication Order Review: Reviewed Comments Comments/Follow Ups: Watch for possible med changes (BM meds, comfort meds).
--- NOTE | 2023-03-09 17:55 | CHAPLAIN ---
I visited with Leticia a couple of times today. She was also sleeping at other times. She was concerned about when her sister would be here so I let Care Management know about that. She was tearful and said she need to know that her sister was okay. Later she was calmer and was watching [employer].
[2023-03-09] MEDS: Lidocaine Patch Removal 2 EACH TP (20:39)
[2023-03-09] MEDS: Mirtazapine 15 MG TAB 7.5 MG PO (22:53)
[2023-03-09] MEDS: Senna TAB PO (22:53)
[2023-03-10] MEDS: Acetaminophen 325 MG TAB PO (04:09)
[2023-03-10] MEDS: Refresh PLUS Eye Drops 0.4ml OU ×2 (04:10→08:14)
[2023-03-10] MEDS: LORazepam 2 MG/1 ML Oral Concentrate 0.5 MG PO ×2 (04:54→12:03)
[2023-03-10] MEDS: Venlafaxine 75 MG CAPCR PO (08:14)
[2023-03-10] MEDS: Lidocaine 5% Patch 2 PATCH TP (08:14)
[2023-03-10] MEDS: Scopolamine 1 MG/3 DAYS PATCH TD (08:14)
[2023-03-10] MEDS: QUEtiapine 25 MG TAB 12.5 MG PO ×2 (08:15→20:07)
[2023-03-10] MEDS: Ondansetron O.D.T. 4 MG TABEF PO (09:42)
[2023-03-10] MEDS: fentaNYL 12 MCG PATCH TD (09:43)
--- NOTE | 2023-03-10 11:35 | W.PALPGNOTE ---
Date of service: 03/10/23 Time of Service: 11:35 Assessment and Plan Assessment and plan (1) Comfort measures only status: Status: Acute Assessment and plan: Leticia is presently on comfort measures. We did talk about treatment for her lung cancer. I had been contacted by Dr. Garcia and I did reach out to him and said that she is no longer able to undergo lung cancer treatment. She again stated she wanted to go home. Nausea?I let nursing supervisor poultry hatchery know that she needs nausea medication. She has ondansetron on her med list Awakening for eyedrops?nursing supervisor poultry hatchery will look into this. Dr. Renee also stressed this in his order. She is on comfort measures she does not need to be awakened Pain she is definitely in pain she does not have IV access. Plan is to start her on a fentanyl patch. Hopefully this will also help her shortness of breath. She does have Ativan on her med list. I would recommend giving the patient Ativan as needed she certainly needs some now I have reached out to Dr. Garcia regarding lung cancer treatment Dr. Renee and I discussed Julia's care. He made several changes to her medications Subjective Subjective Interval history since last seen: Julia is presently on comfort care. The expectation is that she will be staying in the hospital the duration. I came into the room and she was stating that she had a spell. She was having difficulty with nausea, pain under her diaphragm and shortness of breath. She was also upset because she was awakened at 4:00 and given eyedrops. She was unable to get back to sleep. Which she mostly wants to do is to sleep. She also again voiced that she would like to go home if possible Exam Narrative Exam Narrative: Leticia is tachycardic at about 110. Her lungs deep diminished sounds. She has increased ascites in her abdomen. She looks uncomfortable. Objective Last Vital Signs Temp 97.9 F 03/06/23 19:50 Pulse 136 H 03/07/23 08:00 Resp 32 H 03/07/23 08:01 BP 132/79 03/07/23 08:00 Pulse Ox 90 L 03/08/23 21:43
--- NOTE | 2023-03-10 12:26 | PDOC.CMPRO ---
Date of service: 03/10/23 Time of Service: 12:26 Care Management Progress Note Progress Note Text Progress Note Text: S/O: Leticia was sleeping when CM attempted to meet with her. Per report, she has been eating and drinking very little, but did enjoy some tomato soup for lunch today. She remains on comfort measures. CM will continue to follow. A: Leticia is a 77 year old female admitted to [facility] on 03/04/23 for fall, dehydration, symptomatic hypotension. P: Leticia has been transitioned to comfort care. Anticipate she will remain at [facility] for end of life care, but Leticia may make a different choice. She has talked about returning home and there has been some discussion about SNF placement for end of life care. Leticia's son Bennie has contacted CM and may come to visit early next week. CM will follow and continue to support Leticia and any discharge or end of life issues that arise.
--- NOTE | 2023-03-10 17:15 | PGE_ITS ---
Date of Service Date of service: 03/10/23 Time of Service: 17:15 Assessment and Plan Assessment and plan (1) Comfort measures only status: Status: Acute Assessment and plan: palliative care following and medication adjustments made. continue comfort care case management following for discharge planning, may remain here for end of life discussed with DR Blake Subjective Subjective Patient reports: still having pain and afebrile Exam Const General: comfortable, no acute distress, frail appearing and ill appearing chronically Nutritional Appearance: average body habitus Orientation: alert, awake and oriented x3 HENMT Head: normal to inspection, normocephalic and atraumatic Mouth: moist mucous membranes abnormal (slightly dry) Chest Chest: normal inspection of the chest Resp Auscultation: diminished lung sounds Cardio Rate: regular rate Rhythm: regular rhythm GI Inspection: distended Palpation: ascites Skin Rashes: no rashes Neuro General: patient alert, patient awake, patient oriented x3 and no focal motor deficits Extrem General: normal to inspection and no pedal edema Objective Last Vital Signs Temp 36.6 C 03/06/23 19:50 Pulse 136 H 03/07/23 08:00 Resp 32 H 03/07/23 08:01 BP 132/79 03/07/23 08:00 Pulse Ox 90 L 03/08/23 21:43 PAWSS Pt Consumed Any Amount of Alcohol Within the Last 30 days OR had positive MIGUELINA Upon Admission: Yes Time Spent with Patient Time Spent with Patient: 25-34 minutes Time was spent: preparing to see the patient(eg.review tests), obtaining and/or reviewing separately otained hiistory, ordering medications,tests, procedures, referring, communicating with other health physician primary care sports medicine and care coordination
[2023-03-10] MEDS: Mirtazapine 15 MG TAB 7.5 MG PO (21:20)
[2023-03-10] MEDS: Senna TAB PO (21:20)
[2023-03-11] MEDS: Venlafaxine 75 MG CAPCR PO (08:41)
[2023-03-11] MEDS: Lidocaine 5% Patch 2 PATCH TP (08:41)
[2023-03-11] MEDS: QUEtiapine 25 MG TAB 12.5 MG PO ×2 (08:41→19:21)
--- NOTE | 2023-03-11 09:17 | PDOC.CMPRO ---
Date of service: 03/11/23 Time of Service: 09:17 Care Management Progress Note Progress Note Text Progress Note Text: S/O: Leticia was sitting up in bed when CM met with her. CM talked to Leticia about her sons, Bennie and Balbina, who are both planning to visit early next week. She expressed anxiety about seeing her children, as she hasn't for quite a while. CM discussed Letciia transitioning to a SNF, and she stated that she doesn't know where she wants to go, but she agreed to CM sending referrals to the [facility] and [facility], which were sent today. CM will continue to follow. A: Leticia is a 77 year old female admitted to [facility] on 03/04/23 for fall, dehydration, symptomatic hypotension. P: Leticia has been transitioned to comfort care. Anticipate she will remain at [facility] for end of life care, but Leticia may make a different choice. She has talked about returning home and there has been some discussion about SNF placement for end of life care. Leticia's son Bennie has contacted CM and may come to visit early next week. CM will follow and continue to support Leticia and any discharge or end of life issues that arise.
[2023-03-11] MEDS: LORazepam 2 MG/1 ML Oral Concentrate 0.5 MG PO (15:34)
--- NOTE | 2023-03-11 16:10 | W.PM.PROGNOT ---
Date of Service Date of service: 03/11/23 Time of Service: 16:11 Assessment and Plan Assessment and plan (1) Comfort measures only status: Status: Acute Assessment and plan: palliative care following and symptoms managed with medication adjustments made yesterday. continue comfort care case management following for discharge planning, may remain here for end of life discussed with DR Blake Subjective Subjective Patient reports: no new complaints, feels better, pain is less, tolerating liquids well, tolerating a regular diet and afebrile; denies shortness of breath Interval history since last seen: indwelling ochoa cath Exam Const General: no acute distress Nutritional Appearance: average body habitus Orientation: alert, awake and oriented x3 HENMT Head: atraumatic Resp Effort & Inspection: normal respiratory effort Cardio Rate: regular rate GI Inspection: distended Palpation: tender and ascites Neuro General: patient alert, patient awake, patient oriented x3 and no focal motor deficits Cognition: normal cognition Motor: muscle tone normal throughout Objective Last Vital Signs Temp 36.6 C 03/06/23 19:50 Pulse 136 H 03/07/23 08:00 Resp 32 H 03/07/23 08:01 BP 132/79 03/07/23 08:00 Pulse Ox 90 L 03/08/23 21:43 PAWSS Pt Consumed Any Amount of Alcohol Within the Last 30 days OR had positive MIGUELINA Upon Admission: Yes Time Spent with Patient Time Spent with Patient: <25 minutes Time was spent: preparing to see the patient(eg.review tests)
[2023-03-11] MEDS: Acetaminophen 325 MG TAB PO (19:22)
[2023-03-11] MEDS: Refresh PLUS Eye Drops 0.4ml OU (19:24)
[2023-03-11] MEDS: Lidocaine Patch Removal 2 EACH TP (20:05)
[2023-03-11] MEDS: Mirtazapine 15 MG TAB 7.5 MG PO (20:06)
[2023-03-12] MEDS: QUEtiapine 25 MG TAB 12.5 MG PO ×2 (08:06→19:46)
[2023-03-12] MEDS: Lidocaine 5% Patch 2 PATCH TP (08:06)
[2023-03-12] MEDS: Venlafaxine 75 MG CAPCR PO (08:07)
--- NOTE | 2023-03-12 16:27 | W.PM.PROGNOT ---
Date of Service Date of service: 03/12/23 Time of Service: 16:28 Assessment and Plan Assessment and plan (1) Comfort measures only status: Status: Acute Assessment and plan: no new issues, eating and drinking ok. hemodynamically stable. pain is well managed palliative care following and symptoms managed with medication adjustments as needed continue comfort care case management following for discharge planning, may remain here for end of life discussed with DR Blake Subjective Subjective Patient reports: no new complaints Exam Const General: no acute distress Nutritional Appearance: average body habitus Orientation: alert, awake and oriented x3 HENMT Head: atraumatic Resp Effort & Inspection: normal respiratory effort Cardio Rate: regular rate GI Inspection: distended Palpation: tender and ascites Neuro General: patient alert, patient awake and patient oriented x3 Cognition: normal cognition Motor: muscle tone normal throughout Objective Last Vital Signs Temp 36.6 C 03/06/23 19:50 Pulse 136 H 03/07/23 08:00 Resp 32 H 03/07/23 08:01 BP 132/79 03/07/23 08:00 Pulse Ox 90 L 03/08/23 21:43 PAWSS Pt Consumed Any Amount of Alcohol Within the Last 30 days OR had positive MIGUELINA Upon Admission: Yes Time Spent with Patient Time Spent with Patient: <25 minutes Time was spent: preparing to see the patient(eg.review tests), obtaining and/or reviewing separately otained hiistory and counseling the patient
[2023-03-12] MEDS: Mirtazapine 15 MG TAB 7.5 MG PO (19:49)
[2023-03-12] MEDS: Lidocaine Patch Removal 2 EACH TP (20:30)
[2023-03-13] MEDS: Lidocaine 5% Patch 2 PATCH TP (07:32)
[2023-03-13] MEDS: Scopolamine 1 MG/3 DAYS PATCH TD (07:32)
[2023-03-13] MEDS: QUEtiapine 25 MG TAB 12.5 MG PO ×2 (07:33→20:27)
[2023-03-13] MEDS: Venlafaxine 75 MG CAPCR PO (07:33)
[2023-03-13] MEDS: fentaNYL 12 MCG PATCH TD (10:27)
[2023-03-13] MEDS: Ondansetron O.D.T. 4 MG TABEF PO (12:08)
[2023-03-13] MEDS: Mylanta Suspension 30 ML CUP PO (13:19)
--- NOTE | 2023-03-13 14:04 | W.PM.PROGNOT ---
Date of Service Date of service: 03/13/23 Time of Service: 14:04 Assessment and Plan Assessment and plan (1) Comfort measures only status: Status: Acute Assessment and plan: no new issues, eating and drinking with poor po intake. hemodynamically stable. pain is well managed palliative care following and symptoms managed with medication adjustments as needed continue comfort care case management following for discharge planning, referrals sent and pending discussed with DR Blake Subjective Subjective Interval history since last seen: patient continue with poor po intake, pain managed. noted to be having visual hallucinations (see bugs), not distressing to her. has had similar history. Exam Const General: no acute distress Nutritional Appearance: average body habitus Orientation: alert, awake and oriented x3 HENMT Head: atraumatic Resp Effort & Inspection: normal respiratory effort Cardio Rate: regular rate GI Inspection: distended Palpation: tender and ascites Neuro General: patient alert, patient awake and patient oriented x3 Motor: muscle tone normal throughout Psych Mood: congruent mood Affect: blunted Attitude: cooperative Thought Content: hallucinations visual Insight: poor Judgment: limited and poor Objective Last Vital Signs Temp 36.6 C 03/06/23 19:50 Pulse 136 H 03/07/23 08:00 Resp 32 H 03/07/23 08:01 BP 132/79 03/07/23 08:00 Pulse Ox 90 L 03/08/23 21:43 PAWSS Pt Consumed Any Amount of Alcohol Within the Last 30 days OR had positive MIGUELINA Upon Admission: Yes Time Spent with Patient Time Spent with Patient: <25 minutes Time was spent: preparing to see the patient(eg.review tests) and counseling the patient
[2023-03-13] MEDS: Senna TAB PO (20:27)
[2023-03-13] MEDS: Mirtazapine 15 MG TAB 7.5 MG PO (20:27)
[2023-03-14] MEDS: Venlafaxine 75 MG CAPCR PO (08:50)
[2023-03-14] MEDS: QUEtiapine 25 MG TAB 12.5 MG PO ×2 (08:50→19:34)
[2023-03-14] MEDS: Lidocaine 5% Patch 2 PATCH TP (08:53)
--- NOTE | 2023-03-14 12:31 | PDOC.CMPRO ---
Date of service: 03/14/23 Time of Service: 12:32 Care Management Progress Note Progress Note Text Progress Note Text: S/O: Leticia was sitting up in bed when CM met with her. She was eating a few bites of lunch, and stated that she doesn't have much of an apetite. She discussed how her son Balbina visited with her sister, Robyn, yesterday, and stated that it was a nice visit. She reported that she is expecting to see her son Bennie as well, which she is happy about. CM reviewed her discharge plan, which will be to transition to a SNF for comfort focused care. [facility] is reviewing her referral. CM will continue to follow. A: Leticia is a 77 year old female admitted to [facility] on 03/04/23 for fall, dehydration, symptomatic hypotension. P: Leticia has been transitioned to comfort care. Anticipate she will remain at [facility] for end of life care, but Leticia may make a different choice. She has talked about returning home and there has been some discussion about SNF placement for end of life care. Leticia's son Bennie has contacted CM and may come to visit early next week. CM will follow and continue to support Leticia and any discharge or end of life issues that arise.
--- NOTE | 2023-03-14 15:24 | W.PM.PROGNOT ---
Date of Service Date of service: 03/14/23 Time of Service: 15:24 Assessment and Plan Assessment and plan (1) Comfort measures only status: Status: Acute Assessment and plan: no new issues, eating and drinking with poor po intake. hemodynamically stable. pain is well managed palliative care following and symptoms managed with medication adjustments as needed continue comfort care case management following for discharge planning, referrals sent and pending discussed with DR Blake Subjective Subjective Patient reports: no new complaints, pain is less, tolerating liquids well, tolerating a regular diet and afebrile Exam Const General: no acute distress Nutritional Appearance: average body habitus Orientation: alert, awake and oriented x3 HENMT Head: atraumatic Resp Effort & Inspection: normal respiratory effort Cardio Rate: regular rate GI Inspection: distended Palpation: tender and ascites Neuro General: patient alert, patient awake and patient oriented x3 Motor: muscle tone normal throughout Psych Mood: congruent mood Affect: blunted Attitude: cooperative Thought Content: hallucinations visual Insight: poor Judgment: limited and poor Objective Last Vital Signs Temp 36.6 C 03/06/23 19:50 Pulse 136 H 03/07/23 08:00 Resp 32 H 03/07/23 08:01 BP 132/79 03/07/23 08:00 Pulse Ox 90 L 03/08/23 21:43 PAWSS Pt Consumed Any Amount of Alcohol Within the Last 30 days OR had positive MIGUELINA Upon Admission: Yes Time Spent with Patient Time Spent with Patient: <25 minutes Time was spent: preparing to see the patient(eg.review tests), obtaining and/or reviewing separately otained hiistory, referring, communicating with other health child care supervisor, counseling the patient and care coordination
[2023-03-14] MEDS: Mirtazapine 15 MG TAB 7.5 MG PO (19:36)
[2023-03-14] MEDS: Lidocaine Patch Removal 2 EACH TP (21:00)
[2023-03-15] MEDS: Venlafaxine 75 MG CAPCR PO (08:04)
[2023-03-15] MEDS: QUEtiapine 25 MG TAB 12.5 MG PO ×2 (08:04→20:09)
[2023-03-15] MEDS: Lidocaine 5% Patch 2 PATCH TP (08:05)
[2023-03-15] MEDS: LORazepam 2 MG/1 ML Oral Concentrate 0.5 MG PO ×2 (11:11→20:08)
--- NOTE | 2023-03-15 12:56 | PDOC.CMPRO ---
Date of service: 03/15/23 Time of Service: 12:56 Care Management Progress Note Progress Note Text Progress Note Text: S/O: Leticia was resting comfortably when CM attempted to meet with her, therefore CM did not wake her. CM spoke to the provider at the [facility], who stated that she spoke with Dr. Young, Palliative care, regarding Leticia's plan of care, and felt that Leticia would be appropriate for hospice care. CM then contacted admissions at the [facility] to determine if she has a bed offer, with no response. CM also [facility], with [facility]. CM will continue to follow and support discharge planning considerations. A: Leticia is a 77 year old female admitted to [facility] on 03/04/23 for fall, dehydration, symptomatic hypotension. P: Leticia has been transitioned to comfort focused care. Referrals have been sent to SNF for Leticia to continue comfort focused care, likely end of life care, as she does not have a caregiver at home. Leticia's sons Bennie and Balbina have been visiting this week. CM will follow and continue to support Leticia and any discharge or end of life issues that arise.
--- NOTE | 2023-03-15 13:37 | W.PM.PROGNOT ---
Date of Service Date of service: 03/15/23 Time of Service: 13:37 Assessment and Plan Assessment and plan (1) Comfort measures only status: Status: Acute Assessment and plan: no new issues, eating and drinking with poor po intake. hemodynamically stable. pain is well managed palliative care following and symptoms managed with medication adjustments as needed continue comfort care case management following for discharge planning, referrals sent and pending discussed with DR Dumont Subjective Subjective Patient reports: no new complaints, tolerating liquids well, tolerating a regular diet and afebrile; denies shortness of breath Exam Const General: no acute distress Nutritional Appearance: average body habitus Orientation: alert, awake and oriented x3 HENMT Head: atraumatic Resp Effort & Inspection: normal respiratory effort Cardio Rate: regular rate GI Inspection: distended Palpation: tender and ascites Neuro General: patient alert, patient awake and patient oriented x3 Motor: muscle tone normal throughout Psych Mood: congruent mood Affect: blunted Attitude: cooperative Thought Content: hallucinations visual Insight: poor Judgment: limited and poor Objective Last Vital Signs Temp 36.6 C 03/06/23 19:50 Pulse 136 H 03/07/23 08:00 Resp 32 H 03/07/23 08:01 BP 132/79 03/07/23 08:00 Pulse Ox 90 L 03/08/23 21:43 PAWSS Pt Consumed Any Amount of Alcohol Within the Last 30 days OR had positive MIGUELINA Upon Admission: Yes Time Spent with Patient Time Spent with Patient: <25 minutes Time was spent: preparing to see the patient(eg.review tests), counseling the patient and care coordination
--- NOTE | 2023-03-15 15:16 | CHAPLAIN ---
Leticia is on comfort measures. She seems to be comfortable. Her son Anca visited recently. Leticia said she hasn't seen her son in over a year. He lives in [place]. Leticia's sister has visited as well. Leticia said she's been liking watching old tv shows and getting good rest while she's here. I will continue to visit.
[2023-03-15] MEDS: Ondansetron O.D.T. 4 MG TABEF PO ×2 (18:21→20:24)
[2023-03-15] MEDS: Mylanta Suspension 30 ML CUP PO (19:59)
[2023-03-15] MEDS: Mirtazapine 15 MG TAB 7.5 MG PO (20:08)
[2023-03-15] MEDS: Senna TAB PO (20:09)
[2023-03-15] MEDS: Lidocaine Patch Removal 2 EACH TP (20:09)
[2023-03-16] MEDS: LORazepam 2 MG/1 ML Oral Concentrate 0.5 MG PO ×2 (03:32→20:09)
[2023-03-16] MEDS: Ondansetron O.D.T. 4 MG TABEF 8 MG PO ×3 (03:32→20:10)
[2023-03-16] MEDS: Venlafaxine 75 MG CAPCR PO (08:17)
[2023-03-16] MEDS: QUEtiapine 25 MG TAB 12.5 MG PO ×2 (08:17→20:11)
[2023-03-16] MEDS: Scopolamine 1 MG/3 DAYS PATCH TD (08:19)
[2023-03-16] MEDS: Lidocaine 5% Patch 2 PATCH TP (08:20)
[2023-03-16] MEDS: fentaNYL 12 MCG PATCH TD (10:01)
--- NOTE | 2023-03-16 10:03 | PDOC.CMPRO ---
Date of service: 03/16/23 Time of Service: 10:04 Care Management Progress Note Progress Note Text Progress Note Text: S/O: Leticia was sitting up in bed when CM met with her. She had a visitor who identified herself as her senior steel fixer. Later, CM visited again, and had another friend visiting. Leticia was in great spirits, was smiling, and was well engaged. Karina, Palliative care, visited with Leticia with CM in the room, and Leticia reviewed who she would want to help make health care decisions, as the forms on file are quite old. Leticia stated that she would want Bennie to make decisions, as her health care agent, and if he is not willing or able, then he would appoint Robyn, her sister, as alternate. Leticia stated that her goals are to return home and be with her animals, and identified that a barrier to that is that she doesn't have anyone to take her animals. Leticia's sons Bennie and Balbina visited this afternoon, and CM met with them to review Leticia's plan. SNF referrals are pending, CM continues to follow. A: Leticia is a 77 year old female admitted to [facility] on 03/04/23 for fall, dehydration, symptomatic hypotension. P: Leticia has been transitioned to comfort focused care. Referrals have been sent to SNF for Leticia to continue comfort focused care, likely end of life care, as she does not have a caregiver at home. Leticia's sons Bennie and Balbina have been visiting this week. CM will follow and continue to support Leticia and any discharge or end of life issues that arise.
--- NOTE | 2023-03-16 16:23 | PCNE_ITS ---
Date of service: 03/16/23 Time of Service: 13:15 History of Present Illness Narrative: Ms. Kelly is a 77 y/o F currently inpt at [facility] r/t PMx sig for lung cancer (not eligible for treatment), cirrhosis w/portal HTN, ascites and nausea (h/o paracentesis w/good effect), h/o c diff Hospital course: Assessment and Plan Assessment and plan (1) Comfort measures only status: Status: Acute (2) Palliative care patient: Status: Acute (3) Ascites due to chronic alcoholic hepatitis: Status: Chronic (4) Portal hypertension: Status: Chronic (5) Alcohol abuse: Status: Chronic (6) Sleep disturbance: Status: Acute (7) Anxiety: Status: Chronic (8) Advance care planning: Status: Acute (9) Cirrhosis of liver with ascites: Status: Acute (10) Shortness of breath: Status: Acute (11) Frequent falls: Status: Chronic (12) Ambulatory dysfunction: Status: Chronic (13) Need for home health care: Status: Acute (14) Nausea: Status: Resolved (15) Deficit in activities of daily living (ADL): Status: Acute Review of Systems Narrative: as per HPI PFSH All Active Problems (Updated 03/16/23 @ 16:36 by Jessica Vila NP) Deficit in activities of daily living (ADL) (Acute) Need for home health care (Acute) Comfort measures only status (Acute) Palliative care patient (Acute) Acute congestive heart failure (Acute) Acute respiratory failure with hypoxia (Acute) Hypomagnesemia (Acute) Dehydration (Acute) C. 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 -hb Soft tissue mass (Acute) 12/29/22 PET at [facility] Avid lobulated pre-sacral. -hb Hypokalemia (Acute) Alcohol abuse (Chronic) Multiple rib fractures (Chronic) 03/11/19 [facility] Alcohol withdrawal (Acute) Hypomagnesemia (Acute) Breast nodule (Acute) Sleep disturbance (Acute) Sinus tachycardia (Acute) High anion gap metabolic acidosis (Acute) Elevated blood pressure reading with diagnosis of hypertension (Acute) Pincer nail deformity (Acute) Insomnia (Acute) Thrombocytopenia (Chronic) Elevated bilirubin (Acute) Mixed stress and urge urinary incontinence (Acute) Thyroid nodule (Acute) Anxiety (Chronic) Adverse effect of metronidazole (Acute) Medication monitoring encounter (Acute) Advance care planning (Acute) Cirrhosis of liver with ascites (Acute) Animal bite of right hand with infection (Acute) Umbilical hernia (Acute) Hyperbilirubinemia (Acute) Shortness of breath (Acute) Elevated blood pressure reading without diagnosis of hypertension (Acute) Left arm pain (Acute) Ambulatory dysfunction (Acute) Incontinence (Acute) Anorexia (Acute) Headache (Acute) Depression (Chronic) Chest pain (Acute) Foot pain, right (Acute) Tendinitis of left rotator cuff (Acute) Macrocytosis (Acute 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 Leukopenia (Acute) Headache (Acute) Epigastric abdominal pain (Acute) Calcific tendinitis of left shoulder (Acute) Pulmonary mass (Acute) spiculated mass Pneumonia (Acute) Depression with suicidal ideation (Acute) Alcohol abuse (Chronic) Diarrhea (Acute) Epigastric pain (Acute) Dehydration (Acute) Difficult intravenous access (Acute) Multiple IV attempts, usually requires ultrasound placement. PTSD (post-traumatic stress disorder) (Acute) Depression (Chronic) Foot pain, right (Acute) T12 compression fracture (Acute) Presacral mass (Chronic) Deviated nasal septum (Acute) Frequent falls (Chronic) Head injury (Acute) Ambulatory dysfunction (Chronic) Shoulder pain, right (Chronic) Suicidal ideation (Acute) Dry eye (Acute) Pruritus (Acute) Dystrophic nail (Acute) AMBER (acute kidney injury) (Acute) Iron deficiency anemia (Chronic) Fall (Acute) Atelectasis of left lung (Chronic) Advance directive on file (Acute) Nodule of upper lobe of right lung (Acute ~09/13/18) 01/19/23 Increased in size per [facility]. -hb 09/13/18 [facility] ; 12mm SPICULATED -kb Cataract (Chronic 11/07/15) Hypertension (Chronic) high today; she will check readings at home Hyperlipidemia (Chronic) Back pain, chronic (Chronic) Depression (Chronic) Osteopenia (Chronic) Medical History Adjustment disorder with depressed mood Alcoholic ketosis Anemia Cervical radicular pain neck pain and DJD [facility] 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) pls refrain from alcohol Chronic alcoholism she will not stop drinking unless she checks with me, so that we can help her avert withdrawal I do not think she is capable on her own--she would need placement to achieve required goal of 3 months of sobriety Chronic diarrhea Closed right humeral fracture Corneal ulcer, right (~08/23/18) 08/23/18; UV-kb Fracture of humerus, left, closed Genital herpes simplex recurrent gential; suppressive Valtrex GERD (gastroesophageal reflux disease) GI bleed (12/20/16) Hypertension Hypokalemia Hypomagnesemia Incidental lung nodule, greater than or equal to 8mm 1cm, spiculated, stable for many years, recommend f/u in 6 mo Non-cardiac chest pain (09/21/16) [facility] 09/21/16 NEGATIVE MP Osteoarthritis Palliative care patient (03/21/17) Pancreatitis, alcoholic, acute Peripheral edema Photophobia of right eye Pleural effusion on left 03/11/19 [facility] Presacral mass (~09/15/18) 09/15/18 [facility] Sciatica right, epidural injuections [facility] Tubular adenoma of colon (01/28/17) Urinary incontinence 01/24/13 urethral suspension and sling at [facility] (bladder suspension 1991) 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 Bladder repair. Repair bladder injury, simple S/P laparoscopic cholecystectomy (~05/19/22) Family History Mother No problems noted. Father , DROWNED at age 50. No problems noted. Sister Personal history of malignant neoplasm MELANOMA Sister No problems noted. Grandfather Personal history of malignant neoplasm STOMACH Grandfather Personal history of malignant neoplasm PROSTATE Grandmother Heart disease [place] Acute ill-defined cerebrovascular disease Grandmother Personal history of malignant neoplasm UTERINE Aunt , [place] Heart disease GA Aunt , [place] Heart disease Brother No problems noted. Social History Smoking/Tobacco Use Status: Never Smoking risk assessment performed?: Yes Alcohol Intake: current Alcohol Intake frequency: 3 or more drinks per day Alcohol type: hard liquor Drug use: Never Substance use type: does not use Details: Last alcoholic drink Mike zhong, 2 days ago Housing: apartment Current gender identity: female Do you feel safe at home: Yes Do you feel safe in your relationship?: No Additional Social history: Has 1 dog, 4 cats. Results Last Vital Signs Temp 97.9 F 03/06/23 19:50 Pulse 136 H 03/07/23 08:00 Resp 32 H 03/07/23 08:01 BP 132/79 03/07/23 08:00 Pulse Ox 90 L 03/08/23 21:43 Labs 03/05/23 07:05 03/06/23 06:17
--- NOTE | 2023-03-16 16:57 | PGE_ITS ---
Date of Service Date of service: 03/16/23 Time of Service: 16:57 Assessment and Plan Assessment and plan (1) Ambulatory dysfunction: Status: Acute Assessment and plan: seen by palliative today, patient would like to re-mobilize more. she has been getting out of bed with nursing. PT consult placed for routine evaluation and treatment discussed with DR Dumont Subjective Subjective Patient reports: still having pain and nausea Exam Const General: no acute distress Nutritional Appearance: average body habitus Orientation: alert, awake and oriented x3 HENMT Head: atraumatic Resp Effort & Inspection: normal respiratory effort Cardio Rate: regular rate GI Inspection: distended Palpation: tender and ascites Neuro General: patient alert, patient awake and patient oriented x3 Motor: muscle tone normal throughout Psych Mood: congruent mood Affect: blunted Attitude: cooperative Thought Content: hallucinations visual Insight: poor Judgment: limited and poor Objective Last Vital Signs Temp 36.6 C 03/06/23 19:50 Pulse 136 H 03/07/23 08:00 Resp 32 H 03/07/23 08:01 BP 132/79 03/07/23 08:00 Pulse Ox 90 L 03/08/23 21:43 PAWSS Pt Consumed Any Amount of Alcohol Within the Last 30 days OR had positive MIGUELINA Upon Admission: Yes Time Spent with Patient Time Spent with Patient: <25 minutes Time was spent: preparing to see the patient(eg.review tests), referring, communicating with other health complex care nurse, counseling the patient and care coordination
--- NOTE | 2023-03-16 18:11 | PCPN_ITS ---
Leticia is well known to me. She has poor prognostic awareness. She often changes her mind. I would like her to get home with her pets. This may not be possible Date of service: 03/16/23 Time of Service: 13:00 Assessment and Plan Assessment and plan (1) Deficit in activities of daily living (ADL): Status: Acute (2) Need for home health care: Status: Acute (3) Comfort measures only status: Status: Acute (4) Acute congestive heart failure: Status: Acute (5) Ascites due to chronic alcoholic hepatitis: Status: Chronic (6) Portal hypertension: Status: Chronic (7) Lung cancer: Status: Chronic (8) Anxiety: Status: Chronic (9) Advance care planning: Status: Acute (10) Cirrhosis of liver with ascites: Status: Acute (11) Shortness of breath: Status: Acute (12) Ambulatory dysfunction: Status: Acute (13) Epigastric abdominal pain: Status: Acute (14) Chronic alcoholism: (15) Palliative care patient: Status: Acute Assessment and plan: Ms. Kelly is well-known to outpatient and inpatient staff, including her palliative care provider Dr. Young, who she prefers to continue following with, she agrees to meet shortly with palliative today to review discharge planning and advance care planning Leticia reason only goal is to return home to care for her animals and be with her animals, she recognizes that in order to do this she needs to participate in rehabilitation to ensure that she is home safely, she is aware that it may never be approved for her to return home, however she is not ready to talk about that yet. She is agreeable to work with physical therapy to ensure ongoing rehabilitation, with goals of short time at skilled rehab as bridge to returning home. PT consult placed, referrals to health and rehab and [facility] sent Her son Bennie is listed as her healthcare agent with secondary to being her Sister Robyn. She is already on comfort measures, paracentesis available as needed, not needed today. Continue oxygen as needed. We reviewed hospice as a way to help manage symptoms that are debilitating: Pain, nausea, paracentesis, shortness of breath, itchiness, fatigue, today she is not interested Subjective Subjective Interval history since last seen: Leticia remains hospitalized w/hopeful discharge to SNF; she is followed by Dr. Young with palliative care, preference to continue following with her, however agrees despite reluctancy to meet with palliative today with soft handoff from . She continues to experience significant nausea, medications continue to help wi th this. Pain spikes 4-5 times per day across abdomen to right upper quadrant and side. She has not needed further paracentesis, denies needing this now. Reports itchiness all over. Shortness of breath, all the time with worsening on and off, uses oxygen as needed. Reports itchy all over body. she has been able to get out of bed on her own 3 times a day, reports this makes her feel worse with increased dizziness and nausea; she gets uncomfortable in bed with increased blankets increases, feels that she is being a burden so she does not ask staff, does not like feeling like she is being a pest and feels staff is thinking this of her; She is concerned that her insurance will not cover palliative detention visits or home health or hospice, is worried she would have to private pay and would choose to not do these things if it meant it would be, financial burden, she is unable to state which ensures that she has She had a visit with her friend read earlier today. Sons Bennie and Balbina have been visiting, this made her quite happy She identifies Bennie as her healthcare agent, would want her Sister Robyn to be secondary. ACP/Goals: Biggest and only goal is to be home with her pets, she has 3 cats and 1 dog; she states that a barrier to going to going home as no one will take my animals - to get better and be able to walk dog -She is aware that hospice is being presented as an option, however she does not think this will help,feels that hospice would put me in the grave, she is not ready to ; had to close examples of hospice and dying right away. She does state that she is running out of breath and running out of time -She is agreeable to short-term rehab if it is a bridge to returning home, he is willing to engage in PT Exam Narrative Exam Narrative: General: Chronically ill-appearing older adult female lying in bed, eyes closed on arrival, eyes closed intermittent throughout visit, no acute distress HEENT: Hearing within normal limits; moist mucous membranes Resp: Respirations even and unlabored, speaks full sentences no audible; wheezing no cough Psych: Sleepy, cooperative with some agitation, judgment and insight limited to poor Objective Last Vital Signs Temp 97.9 F 03/06/23 19:50 Pulse 136 H 03/07/23 08:00 Resp 32 H 03/07/23 08:01 BP 132/79 03/07/23 08:00 Pulse Ox 90 L 03/08/23 21:43
[2023-03-16] MEDS: Mirtazapine 15 MG TAB 7.5 MG PO (20:11)
[2023-03-16] MEDS: Lidocaine Patch Removal 2 EACH TP (20:13)
[2023-03-17] MEDS: Ondansetron O.D.T. 4 MG TABEF 8 MG PO (02:13)
[2023-03-17] MEDS: LORazepam 2 MG/1 ML Oral Concentrate 0.5 MG PO ×3 (02:57→19:40)
[2023-03-17] MEDS: Lidocaine 5% Patch 2 PATCH TP (08:06)
[2023-03-17] MEDS: QUEtiapine 25 MG TAB 12.5 MG PO ×2 (08:07→19:41)
[2023-03-17] MEDS: Venlafaxine 75 MG CAPCR PO (08:09)
--- NOTE | 2023-03-17 11:15 | IN_ITS ---
PT Notes Visit Reasons: Fall,Dehydration,Symptomatic Hypotension Inpatient Physical Therapy Evaluation Date: 03/17/2023 Referring Doctor:?Jessica Vila,? CATERING MANAGER PT Orders: PT CONSULT: Limited bility. Evaluate Leticia; plan for d/c to SNF for ongoing rehab w/ walking goals Precautions: Standard.? Frequent falls.? Activity as tolerated. Patient Profile/Admitting Diagnosis:? Leticia is a 77-year-old female now on modified comfort measures re-evaluated today for resumption of PT services per request of CATERING MANAGER Karina Vila yesterday (03/16/2023) with patient in agreement of plan of regaining strength while here and then at the SNF for short-term rehab with ultimate goal of going home alone with needed community services. Patient was admitted on 03/04/2023 due to acute on chronic anemia, ascites, C. difficile colitis, depression, hypomagnesemia, and EtOH abuse with PT services provided from 03/05/2023 and discontinuation on 03/08/2023 as patient converted to comfort measures level of care. PMHX: All Active Problems?(Updated 02/16/23 @ 16:51 by Laly Dumont MD) Acute on chronic anemia (Acute) Anemia (Chronic) Portal hypertension (Chronic) Leukopenia (Acute) Macrocytic anemia (Acute) Hypokalemia (Acute) Hypomagnesemia (Acute) Shortness of breath (Acute) Lung cancer (Chronic) RUL Abdominal pain (Acute) Leukopenia (Acute) Thrombocytopenia (Chronic) Hypomagnesemia (Acute) Elevated LFTs (Acute) Macrocytic anemia (Acute) Pelvic mass (Acute) Pneumothorax after biopsy (Acute) 01/19/23? Per [facility] CXR.? -hb Soft tissue mass (Acute) 12/29/22? PET at [facility] Avid lobulated pre-sacral.? -hb Hypokalemia (Acute) Alcohol abuse (Chronic) DVT prophylaxis (Acute) Multiple rib fractures (Chronic) 03/11/19 [facility] Alcohol withdrawal (Acute) Hypomagnesemia (Acute) Breast nodule (Acute) Sleep disturbance (Acute) Sinus tachycardia (Acute) High anion gap metabolic acidosis (Acute) Elevated blood pressure reading with diagnosis of hypertension (Acute) Pincer nail deformity (Acute) Insomnia (Acute) Thrombocytopenia (Chronic) Elevated bilirubin (Acute) Mixed stress and urge urinary incontinence (Acute) Thyroid nodule (Acute) Anxiety (Chronic) Adverse effect of metronidazole (Acute) Medication monitoring encounter (Acute) Advance care planning (Acute) Cirrhosis of liver with ascites (Acute) Animal bite of right hand with infection (Acute) Umbilical hernia (Acute) Hyperbilirubinemia (Acute) Shortness of breath (Acute) Elevated blood pressure reading without diagnosis of hypertension (Acute) Left arm pain (Acute) Ambulatory dysfunction (Acute) Incontinence (Acute) Anorexia (Acute) Headache (Acute) Depression (Chronic) Chest pain (Acute) Foot pain, right (Acute) Tendinitis of left rotator cuff (Acute) Macrocytosis (Acute 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 Leukopenia (Acute) Headache (Acute) Epigastric abdominal pain (Acute) Calcific tendinitis of left shoulder (Acute) Pulmonary mass (Acute) spiculated massPneumonia (Acute) Depression with suicidal ideation (Acute) Alcohol abuse (Chronic) Diarrhea (Acute) Epigastric pain (Acute) Dehydration (Acute) Discharge planning issues (Acute) Difficult intravenous access (Acute) Multiple IV attempts, usually requires ultrasound placement.PTSD (post-traumatic stress disorder) (Acute) Anemia (Chronic) Depression (Chronic) Foot pain, right (Acute) T12 compression fracture (Acute) Presacral mass (Chronic) Deviated nasal septum (Acute) Frequent falls (Chronic) Head injury (Acute) Ambulatory dysfunction (Chronic) Shoulder pain, right (Chronic) Suicidal ideation (Acute) Dry eye (Acute) Pruritus (Acute) Dystrophic nail (Acute) AMBER (acute kidney injury) (Acute) Iron deficiency anemia (Chronic) Fall (Acute) Atelectasis of left lung (Chronic) Advance directive on file (Acute) Nodule of upper lobe of right lung (Acute ~09/13/18) 01/19/23? Increased in size per [facility].? -hb 09/13/18 [facility] ; 12mm SPICULATED -kb Cataract (Chronic 11/07/15) Hypertension (Chronic) high today; she will check readings at homeHyperlipidemia (Chronic) Back pain, chronic (Chronic) Depression (Chronic) Osteopenia (Chronic) Medical History? Adjustment disorder with depressed mood Alcoholic ketosis Anemia Cervical radicular pain neck pain and [facility]D [facility] 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) pls refrain from alcohol Chronic alcoholism she will not stop drinking unless she checks with me, so that we can help her avert withdrawal I do not think she is capable on her own--she would need placement to achieve required goal of 3 months of sobriety Chronic diarrhea Closed right humeral fracture Corneal ulcer, right (~08/23/18) 08/23/18; [facility]-kbFracture of humerus, left, closed Genital herpes simplex recurrent gential; suppressive Valtrex GERD (gastroesophageal reflux disease) GI bleed (12/20/16) Hypertension Hypokalemia Hypomagnesemia Incidental lung nodule, greater than or equal to 8mm 1cm, spiculated, stable for many years, recommend f/u in 6 mo Non-cardiac chest pain (09/21/16) [facility] 09/21/16 NEGATIVE MP Osteoarthritis Palliative care patient (03/21/17) Pancreatitis, alcoholic, acute Peripheral edema Photophobia of right eye Pleural effusion on left 03/11/19 [facility] Presacral mass (~09/15/18) 09/15/18 [facility] Sciatica right, epidural injections [facility] Tubular adenoma of colon (01/28/17) Urinary incontinence 01/24/13 urethral suspension and sling at [facility] (bladder suspension 1991) 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 Colonoscopy - [facility] (01/28/17) EGD - [facility] (12/20/16) History of bilateral ligation of fallopian tubes History of Surgical Procedure a. Bladder repair.Repair bladder injury, simple S/P laparoscopic cholecystectomy (~05/19/22) Social History/Home Situation: Leticia lives in a private home in [place], [place]. ? She has a caregiver who comes in once a week for 2 hours each time to assist with laundry, minor house chores, and grocery shopping.? Patient is independent with ADLs using a front- wheeled walker. No longer receives meals on wheels,? does frozen dinners now.? S he no longer drives.? Sister lives 2 miles away and helps minimally,? she is taking care of the patient's cat right now. Equipment Owned/DME: 3WW, FWW, SC, grab bars, emergency alert device Subjective: Very weak. Unable to stay standing for more than 1-2 minutes. Difficulty with following instructions. Objective: General Observation:?Supine in bed.? Lopez catheter in place. Mental Status: Drowsy but responses are appropriate.? Decreased motor response time due to persistent weakness and confusion. Pain: Minimal pain in lower abdominal area with weight bearing, resolved with rest ROM: Right Upper Extremity: ? Shoulder Flexion allows up to 150 degrees. Shoulder abduction allows up to 120 degrees. Elbow flexion WFL. Wrist flexion WFL. Functional opening and closing of hand WFL. Left Upper Extremity: ? Shoulder Flexion allows up to 150 degrees. Shoulder abduction allows up to 120 degrees. Elbow flexion WFL. Wrist flexion WFL. Functional opening and closing of hand WFL. Right Lower Extremity: Hip flexion allows up to 20 degrees. Hip abduction lacks the last 50% of AROM. Knee flexion 30-90 degrees. Knee extension -30 degrees.? Ankle dorsiflexion WFL. Ankle plantarflexion WFL. Left Lower Extremity: Hip flexion allows up to 20 degrees. Hip abduction lacks the last 50% of AROM. Knee flexion 30-90 degrees. Knee extension -30 degrees.? Ankle dorsiflexion WFL. Ankle plantarflexion WFL. Strength: Right Upper Extremity: Shoulder flexors 3-/5. Shoulder abductors 3-/5. Elbow flexors 4/5. Elbow extensors 4/5. Recycler strong. Left Upper Extremity: Shoulder flexors 3-/5. Shoulder abductors 3-/5. Elbow flexors 4/5. Elbow extensors 4/5. Recycler strong. Right Lower Extremity: Hip flexors 2-/5. Hip abductors 3-/5. Knee flexors 2-/5. Knee extensors 2-/5. Ankle dorsiflexors 2-/5. Ankle plantarflexors 2-/5. Left Lower Extremity: Hip flexors 2-/5. Hip abductors 3-/5. Knee flexors 2-/5. Knee extensors 2-/5. Ankle dorsiflexors 2-/5. Ankle plantarflexors 2-/5. Bed Mobility/Transfers: Rolling minimal assist Supine to sit moderate assist Sit to stand moderate assist of 2, maximal cues provided for hand placement Stand to sit moderate assist of 2, maximal cues provided for hand placement Bed to chair moderate assist of 2, maximal cues provided for hand placement Scooting backward while on chair moderate assist of 2 Gait: 4-5 small steps to transfer from edge of bed to reclining chair with moderate assist of PT and Nurse Jillian. Highly unsteady. Exhausted after transfer. Needed considerable assistance with walker handling. Balance: Static Sitting: Fair Dynamic Sitting: Poor Static Standing: Poor Dynamic Standing: Poor Special Tests: Mobility Limitations Standardized Measure [facility] 6 clicks Basic Mobility Inpatient Short Form: Raw Score:10 ? CMS Score: 77% deficit Informed Consent/Education:? Patient was instructed in purpose of PT consult and plan of care.? Agreeable to proceed with established PT POC to achieve personal goals. Assessment: Significant functional mobility decline, difficulty with walking, and generalized weakness all increase risk for falls in patient. Patient presents with clinical signs and symptoms consistent with current/admitting diagnoses that have resulted to mobility limitations, gait instability, generalized weakness, and impairment of motor control as demonstrated by the following impairment level findings: 1.? Decreased strength to B UE/LE major muscle groups 2.? Impaired static and dynamic standing balance 3. Decreased activity tolerance 4. Confusion Impairments are contributing to the following functional limitations: 2.? Inability to safely ambulate due to admitting diagnoses 3.? Increase completion time for mobility ADL performance 4.? Increased fall risk Patient is assessed as a 64848 high complexity based on the following: History: 75-year-old female with impairment level findings, functional impairments, medical history, and [employer] deficit score of 47% Examination: Demonstrable impairment in strength, balance, and range of motion with underlying impairments and functional limitations as documented above Presentation: Evolving Decision Makin high complexity Goals: Goals X1 week 1. Supine-Sit stand by assist 2. Sit-Supine stand by assist 3. Sit-Stand stand by assist 4. Stand-Sit stand by assist 5. Bed-Chair stand by assist 6. Chair-Bed stand by assist 7.?Minimal assist on level surface with use of straight cane for at least 100 feet without report of pain nor dyspnea 8.?Minimal assist with stair negotiation while holding onto bilateral rails for at least 5 steps without report of pain nor dyspnea 9. Good static and dynamic standing balance/tolerance DISCHARGE RECOMMENDATIONS: [] ? Home with no services [] [] ? Home with services [] ? Home with outpatient PT [] [X] ? SNF for continued rehabilitation. Patient will benefit from longterm facility placement for continued skilled physical therapy services in order to progress mobility level, strength, and balance in preparation for a safe discharge to home. [] ? [facility] [employer] [facility] [] [] ? SNF versus LTC based on ability to participate and progress [] TREATMENT CODE/TIME: 76512 x 28 minutes beginning at 9:40 AM. Thank you for the opportunity to participate in the care of this patient. Tawana Cruz PT, DPT, CLT [facility] [place], [place]
--- NOTE | 2023-03-17 12:01 | PDOC.CMPRO ---
Date of service: 03/17/23 Time of Service: 12:01 Care Management Progress Note Progress Note Text Progress Note Text: S/O: Leticia was resting in her chair when CM visited her. 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 CM talked to Melissa, admissions at the [facility], who offered Leticia a bed, pending PA. She submitted the PA, and reported that she will discuss finances with Bennie, her financial DPOA, in the event that Leticia requires a longer stay than what her insurance will cover. CM advised that she has a assisted care insurance policy, and that a claim will be submitted today. CM will continue to follow. A: Leticia is a 77 year old female admitted to [facility] on 03/04/23 for fall, dehydration, symptomatic hypotension. P: Leticia has been transitioned to comfort focused care, although she is working with PT. Referrals have been sent to SNF for Leticia to continue comfort focused care, which may transition to end of life care. Leticia's sons Bennie and Balbina have been visiting this week. CM will follow and continue to support Leticia and any discharge or end of life issues that arise.
--- NOTE | 2023-03-17 14:19 | PTTR_ITS ---
Date of service: 03/17/23 Time of Service: 13:54 PT Notes Visit Reasons: Fall,Dehydration,Symptomatic Hypotension Physical Therapy Inpatient Treatment Note Date: 03/17/2023 Precautions: Standard.? Frequent falls.? Activity as tolerated. Subjective: ELA Childers present in room to assist with patient for the walk. Agreeable to walking some this afternoon. Bed Mobility/Transfers: Sit to stand minimal assist of 2,? moderate cues provided for hand placement Stand to sit minimal assist of 2, moderate cues provided for hand placement Wheelchair to chair minimal assist of 2, moderate cues provided for hand placement Scooting backward while on chair moderate assist of 2 Gait: 5 steps + 6 steps + 3 small steps moderate assist of PT and contact guard assist of ELA Childers.? Highly unsteady.? Needed considerable assistance with walker handling. THERA EX: Chest expansion exercises with DBE x 5 B LAQs x 10 Chest expansion exercises with DBE x 5 Ankle pumps x 10 Seated marches x 10 Balance: Static Sitting: Fair Dynamic Sitting: Poor Static Standing: Poor Dynamic Standing: Poor Assessment: Able to take more steps this afternoon. With cueing to use B hands to push off arm rests, patient is able to stand up with less assistance. Easily fatigued with little movement. More awake and alert this afternoon. DISCHARGE RECOMMENDATIONS: [] ? Home with no services [] [] ? Home with services [] ? Home with outpatient PT [] [X] ? SNF for continued rehabilitation.? Patient will benefit from prison facility placement for continued skilled physical therapy services in order to progress mobility level, strength, and balance in preparation for a safe discharge to home. [] ? Pharmacist Manager Care [] [] ? SNF versus LTC based on ability to participate and progress [] TREATMENT CODE/TIME: 11595 x 15 minutes, 31633 x 9 minutes beginning at 13:54 PM.
--- NOTE | 2023-03-17 17:15 | CHAPLAIN ---
Leticia was up in the chair watching tv when I visited. This is the first time I've seen her in the chair on this admission. She told me about her pets, as usual, and said he sister looking out for them. (Three cats and one dog.) She also talked about her two sons visiting and seemed very pleased that they had. I will continue to visit.
[2023-03-17] MEDS: Mirtazapine 15 MG TAB 7.5 MG PO (21:23)
[2023-03-17] MEDS: Lidocaine Patch Removal 2 EACH TP (22:21)
[2023-03-18] MEDS: QUEtiapine 25 MG TAB 12.5 MG PO (07:52)
[2023-03-18] MEDS: Venlafaxine 75 MG CAPCR PO (07:52)
[2023-03-18] MEDS: Lidocaine 5% Patch 2 PATCH TP (07:52)
--- NOTE | 2023-03-18 09:56 | W.PM.DS.N ---
Date of service: 03/18/23 Time of Service: 09:57 DS: Diagnosis Discharge Diagnosis (1) Deficit in activities of daily living (ADL): Status: Acute (2) Need for home health care: Status: Acute (3) Comfort measures only status: Status: Acute (4) Acute congestive heart failure: Status: Acute (5) Ascites due to chronic alcoholic hepatitis: Status: Chronic (6) Portal hypertension: Status: Chronic (7) Lung cancer: Status: Chronic (8) Anxiety: Status: Chronic (9) Advance care planning: Status: Acute (10) Cirrhosis of liver with ascites: Status: Acute (11) Shortness of breath: Status: Acute (12) Ambulatory dysfunction: Status: Acute (13) Epigastric abdominal pain: Status: Acute (14) Chronic alcoholism: (15) Palliative care patient: Status: Acute Discharge Plan Disposition Patient Disposition: Custodial Facility(SNF) Condition: Stable Discharge Details Reason For Visit: Fall,Dehydration,Symptomatic Hypotension Admit Date/Time: 03/04/23 07:46 Admit Provider: Aydin Joy Attending Provider: Aydin Joy Primary Care Provider: Lavelle Galindo Hospital Course Hospital Course: This is a 77 year old patient with a longstanding history of alcohol abuse and with multiple hospitalizations at this hospital who most recently presented status post mechanical fall.? She lives at home alone with her animals and has progressively been declining and at this point not safe to be living independently.? She was admitted to the hospital and evaluated by palliative care she did decide she wanted to focus more on a comfort focused plan but did not feel ready for hospice at this time. She was started on a fentanyl patch which did provide good relief of her pain which is mostly abdominal. She has had bouts of pancreatitis but lipase not elevated on this visit. She also has ascites for which she has required paracentesis. Hemodynamically she has been stable her appetite is poor but that is baseline. She had not been drinking heavily prior to this admission but our experience with her is that she does not have alcohol withdrawal symptoms. She has had a history of cdiff but also has chronic diarrhea. She also has urinary incontinence and did request a indwelling Lopez catheter for her comfort. She will be discharged with this Lopez catheter in place. She is a DNR/DNI. She has been working with physical therapy as she does hope to possibly get strong enough to return home at some point but also understands this might not be possible. Her 2 sons and sister have become involved in her care and decision making which has been helpful. Case management has been following medically she has been stable referrals have been placed and she was excepted at the [facility] for which she is being transported to for further physical therapy and rehabilitation. Discharge discussed with Dr. Dumont Home Meds and New Rx's Prescriptions: New morphine 10 mg/5 mL Solution 2 - 4 mg PO Q1H PRN PRNQty: 20 0RF scopolamine base 1 mg over 3 days Patch 3 Day 1 mg transdermal Q72H Qty: 3 0RF fentanyl 12 mcg/hr Patch 72 Hour 12 mcg transdermal Q72H Qty: 5 0RF Continued budesonide [Pulmicort] 0.5 mg/2 mL suspension for nebulization 0.5 mg inhalation DAILY Qty: 60 5RF Patient Comments: pt states meds come in blister pack labeled daily by [employer] and she takes them but doesn't know the names ipratropium-albuterol 0.5 mg-3 mg(2.5 mg base)/3 mL solution for nebulization 3 ml inhalation Q6H PRN Patient Comments: pt states meds come in blister pack labeled daily by [employer] and she takes them but doesn't know the names albuterol sulfate [Ventolin HFA] 90 mcg/actuation HFA aerosol inhaler 2 puff inhalation QID PRN (Reason: shortness of breath or wheezing) Qty: 8.5 1RF buspirone 5 mg tablet 5 mg PO BID Qty: 60 5RF Patient Comments: pt states meds come in blister pack labeled daily by [employer] and she takes them but doesn't know the names melatonin 3 mg capsule 6 mg PO HS Qty: 180 3RF Patient Comments: pt states meds come in blister pack labeled daily by [employer] and she takes them but doesn't know the names thiamine HCl (vitamin B1) 100 mg tablet 100 mg PO DAILY Qty: 90 3RF Patient Comments: pt states meds come in blister pack labeled daily by [employer] and she takes them but doesn't know the names cyanocobalamin (vitamin B-12) [Vitamin B-12] 500 mcg tablet 1,000 mcg PO DAILY Qty: 180 3RF Patient Comments: pt states meds come in blister pack labeled daily by [employer] and she takes them but doesn't know the names ferrous sulfate 325 mg (65 mg iron) tablet 325 mg PO BID Qty: 180 3RF Patient Comments: pt states meds come in blister pack labeled daily by [employer] and she takes them but doesn't know the names Rx Instructions: do not take within 2 hours of antibiotics aspirin 81 mg tablet,delayed release (DR/EC) 81 mg PO DAILY Qty: 90 3RF Patient Comments: pt states meds come in blister pack labeled daily by [employer] and she takes them but doesn't know the names lorazepam 0.5 mg tablet 0.5 mg PO QHS PRN (Reason: anxiety) Qty: 20 0RF carboxymethylcellulose sodium [Refresh Plus] 0.5 % Dropperette 1 drp OU Q4H WHILE AWAKE Qty: 30 0RF Patient Comments: pt states meds come in blister pack labeled daily by [employer] and she takes them but doesn't know the names pantoprazole 40 mg Tablet,Delayed Release (Dr/Ec) 40 mg PO BID@0730,2000 Qty: 60 0RF Patient Comments: pt states meds come in blister pack labeled daily by [employer] and she takes them but doesn't know the names magnesium oxide 400 mg magnesium tablet 400 mg PO BID Qty: 30 0RF loperamide 2 mg Capsule 2 mg PO Q4H PRN PRNQty: 12 0RF lidocaine 5 % Adhesive Patch,Medicated 2 patch topical Q24H Qty: 30 0RF Discontinued multivitamin [Multiple Vitamins] Tablet 1 tab PO DAILY Qty: 90 3RF Patient Comments: pt states meds come in blister pack labeled daily by [employer] and she takes them but doesn't know the names fluticasone propionate 50 mcg/actuation spray,suspension 2 spray NS daily prn Qty: 16 5RF Patient Comments: pt states meds come in blister pack labeled daily by [employer] and she takes them but doesn't know the names furosemide 40 mg Tablet 40 mg PO BID@0830,1600 Qty: 80 0RF Discharge Instructions Instructions: Ascites (DC), Cirrhosis (DC) Referrals: Lavelle Galindo MD [Primary Care Provider] - Activity:: Activity as Tolerated Equipment/Supplies:: No Equipment Needed Diet:: As Tolerated Discharge Orders Discharge Orders: Discharge Order (Routine); Ordered 03/18/23 Ordered By: Kimmy Sierra DS: Summary Time Spent with Patient providing and/or coordinating discharge services: Greater than 30 minutes Status at Discharge Functional status at discharge: independent ambulation Overall status at discharge: patient is back to baseline Mental Status: mental status grossly normal Speech and Movement: speech and movement normal Mood: congruent mood Affect: blunted Exam Const General: no acute distress Nutritional Appearance: average body habitus Orientation: alert, awake and oriented x3 HENMT Head: atraumatic Resp Effort & Inspection: normal respiratory effort Cardio Rate: regular rate GI Inspection: distended Palpation: tender and ascites Neuro General: patient alert, patient awake and patient oriented x3 Motor: muscle tone normal throughout Psych Mental Status: mental status grossly normal Speech and Movement: speech and movement normal Mood: congruent mood Affect: blunted Attitude: cooperative Insight: poor Judgment: limited and poor DS: Data Vitals/I&O Vitals and I&O: Vital Signs Temperature 36.6 C 03/06/23 19:50 Temperature Source Tympanic 03/06/23 19:50 Pulse 136 H 03/07/23 08:00 Pulse Rhythm Regular 03/14/23 21:24 Pulse 125 H 03/07/23 08:01 Respiratory Rate 32 H 03/07/23 08:01 Respiratory Effort Normal 03/14/23 21:24 Respiratory Depth Normal 03/14/23 21:24 Respiratory Pattern Normal 03/14/23 21:24 Blood Pressure 132/79 03/07/23 08:00 Blood Pressure Mean 93 03/07/23 08:00 Blood Pressure Position Supine 03/06/23 13:00 Pulse Oximetry 90 L 03/08/23 21:43 Oxygen Delivery Method Room Air 03/11/23 21:06 Oxygen Flow Rate 0 03/11/23 21:06 End Tidal Co2 6 03/04/23 05:13 Pain Level 2 03/15/23 12:11 Intake & Output 03/17/23 03/17/23 03/18/23 11:59 23:59 11:59 Output Total 150 / 250 100 / 250 150 / 150 Balance -150 / -250 -100 / -250 -150 / -150 Output: Urine 150 / 250 100 / 250 150 / 150 Other: Urine Color Yellow Light Nguyen Yellow Urine Appearance Clear Cloudy Cloudy Sediment PFSH All Active Problems (Updated 03/16/23 @ 16:36 by Jessica Vila NP) Deficit in activities of daily living (ADL) (Acute) Need for home health care (Acute) Comfort measures only status (Acute) Palliative care patient (Acute) Acute congestive heart failure (Acute) Acute respiratory failure with hypoxia (Acute) Hypomagnesemia (Acute) Dehydration (Acute) C. 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 -hb Soft tissue mass (Acute) 12/29/22 PET at [facility] Avid lobulated pre-sacral. -hb Hypokalemia (Acute) Alcohol abuse (Chronic) Multiple rib fractures (Chronic) 03/11/19 [facility] Alcohol withdrawal (Acute) Hypomagnesemia (Acute) Breast nodule (Acute) Sleep disturbance (Acute) Sinus tachycardia (Acute) High anion gap metabolic acidosis (Acute) Elevated blood pressure reading with diagnosis of hypertension (Acute) Pincer nail deformity (Acute) Insomnia (Acute) Thrombocytopenia (Chronic) Elevated bilirubin (Acute) Mixed stress and urge urinary incontinence (Acute) Thyroid nodule (Acute) Anxiety (Chronic) Adverse effect of metronidazole (Acute) Medication monitoring encounter (Acute) Advance care planning (Acute) Cirrhosis of liver with ascites (Acute) Animal bite of right hand with infection (Acute) Umbilical hernia (Acute) Hyperbilirubinemia (Acute) Shortness of breath (Acute) Elevated blood pressure reading without diagnosis of hypertension (Acute) Left arm pain (Acute) Ambulatory dysfunction (Acute) Incontinence (Acute) Anorexia (Acute) Headache (Acute) Depression (Chronic) Chest pain (Acute) Foot pain, right (Acute) Tendinitis of left rotator cuff (Acute) Macrocytosis (Acute 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 Leukopenia (Acute) Headache (Acute) Epigastric abdominal pain (Acute) Calcific tendinitis of left shoulder (Acute) Pulmonary mass (Acute) spiculated mass Pneumonia (Acute) Depression with suicidal ideation (Acute) Alcohol abuse (Chronic) Diarrhea (Acute) Epigastric pain (Acute) Dehydration (Acute) Difficult intravenous access (Acute) Multiple IV attempts, usually requires ultrasound placement. PTSD (post-traumatic stress disorder) (Acute) Depression (Chronic) Foot pain, right (Acute) T12 compression fracture (Acute) Presacral mass (Chronic) Deviated nasal septum (Acute) Frequent falls (Chronic) Head injury (Acute) Ambulatory dysfunction (Chronic) Shoulder pain, right (Chronic) Suicidal ideation (Acute) Dry eye (Acute) Pruritus (Acute) Dystrophic nail (Acute) AMBER (acute kidney injury) (Acute) Iron deficiency anemia (Chronic) Fall (Acute) Atelectasis of left lung (Chronic) Advance directive on file (Acute) Nodule of upper lobe of right lung (Acute ~09/13/18) 01/19/23 Increased in size per [facility]. 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) pls refrain from alcohol Chronic alcoholism she will not stop drinking unless she checks with me, so that we can help her avert withdrawal I do not think she is capable on her own--she would need placement to achieve required goal of 3 months of sobriety Chronic diarrhea Closed right humeral fracture Corneal ulcer, right (~08/23/18) 08/23/18; UV-kb Fracture of humerus, left, closed Genital herpes simplex recurrent gential; suppressive Valtrex GERD (gastroesophageal reflux disease) GI bleed (12/20/16) Hypertension Hypokalemia Hypomagnesemia Incidental lung nodule, greater than or equal to 8mm 1cm, spiculated, stable for many years, recommend f/u in 6 mo Non-cardiac chest pain (09/21/16) [facility] 09/21/16 NEGATIVE MP Osteoarthritis Palliative care patient (03/21/17) Pancreatitis, alcoholic, acute Peripheral edema Photophobia of right eye Pleural effusion on left 03/11/19 [facility] Presacral mass (~09/15/18) 09/15/18 [facility] Sciatica right, epidural injuections [facility] Tubular adenoma of colon (01/28/17) Urinary incontinence 01/24/13 urethral suspension and sling at [facility] (bladder suspension 1991) 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 Bladder repair. Repair bladder injury, simple S/P laparoscopic cholecystectomy (~05/19/22) Family History Mother No problems noted. Father , DROWNED at age 50. No problems noted. Sister Personal history of malignant neoplasm MELANOMA Sister No problems noted. Grandfather Personal history of malignant neoplasm STOMACH Grandfather Personal history of malignant neoplasm PROSTATE Grandmother Heart disease [place] Acute ill-defined cerebrovascular disease Grandmother Personal history of malignant neoplasm UTERINE Aunt , [place] Heart disease [place] Aunt , [place] Heart disease Brother No problems noted. Social History Smoking/Tobacco Use Status: Never Smoking risk assessment performed?: Yes Alcohol Intake: current Alcohol Intake frequency: 3 or more drinks per day Alcohol type: hard liquor Drug use: Never Substance use type: does not use Details: Last alcoholic drink Mike zhong, 2 days ago Housing: apartment Current gender identity: female Do you feel safe at home: Yes Do you feel safe in your relationship?: No Additional Social history: Has 1 dog, 4 cats. Time Spent with Patient Time Spent with Patient: 45-69 minutes Time was spent: preparing to see the patient(eg.review tests), ordering medications,tests, procedures, referring, communicating with other health care trainer, counseling the patient and care coordination
--- NOTE | 2023-03-18 10:26 | CMDISCH_ITS ---
Date of service: 03/18/23 Time of Service: 10:26 LACE Index Scoring Tool Questions: Length of Stay (in days): 14 or more Was the patient admitted via the E.D.?: Yes Comorbidities: Congestive Heart Failure, Any Tumor and Liver or Renal Disease E.D. Visits: 12 Answers: Total Score: 19 Risk of Readmission: High Risk Care Management Discharge Plan Reason for Hospitalization: Fall, dehydration, symptomatic hypotension Discharge Plan: Leticia will transition to the [facility] today for short term rehab with comfort focused care. CM called her son to inform him of this transition, and left a voicemail. CM coordinated [facility] w/c van transportation. She will follow up with Palliative care, her PCP and her discharge plan of care. Patient/Family Education Needs: Review discharge instructions and limitations, discussion of self care needs including ask me three. Services Needed at Discharge: [facility] Facility ([facility]) and Transportation ([facility] W/C [employer])
[2023-03-18] MEDS: LORazepam 2 MG/1 ML Oral Concentrate 0.5 MG PO (12:03)
--- NOTE | 2023-03-18 13:27 | PT.INDS ---
Date of service: 03/18/23 PT Notes Visit Reasons: Fall,Dehydration,Symptomatic Hypotension Physical Therapy Inpatient Discharge Summary Date: 03/18/2023 Dates of service: 03/17/23 only This is a clinical summary of care provided for the duration of dates listed above. No charge was made in the completion of this documentation. Referring Doctor:?Jessica Vila,? RECEPTIONIST PT Orders: PT CONSULT: Limited bility.? Evaluate Leticia;? plan for d/c to SNF for ongoing rehab w/ walking goals Precautions: Standard.? Frequent falls.? Activity as tolerated. Patient Profile/Admitting Diagnosis:? Leticia is a 77-year-old female now on modified comfort measures re-evaluated today for resumption of PT services per request of RECEPTIONIST Karina Vila yesterday (03/16/2023) with patient in agreement of plan of regaining strength while here and then at the SNF for short-term rehab with ultimate goal of going home alone with needed community services.? Patient was admitted on 03/04/2023 due to acute on chronic anemia, ascites, C. difficile colitis, depression, hypomagnesemia, and EtOH abuse with PT services provided from 03/05/2023 and discontinuation on 03/08/2023 as patient converted to comfort measures level of care.? PMHX: All Active Problems?(Updated 02/16/23 @ 16:51 by Laly Dumont MD) Acute on chronic anemia (Acute) Anemia (Chronic) Portal hypertension (Chronic) Leukopenia (Acute) Macrocytic anemia (Acute) Hypokalemia (Acute) Hypomagnesemia (Acute) Shortness of breath (Acute) Lung cancer (Chronic) RUL Abdominal pain (Acute) Leukopenia (Acute) Thrombocytopenia (Chronic) Hypomagnesemia (Acute) Elevated LFTs (Acute) Macrocytic anemia (Acute) Pelvic mass (Acute) Pneumothorax after biopsy (Acute) 01/19/23? Per [facility] CXR.? -hb Soft tissue mass (Acute) 12/29/22? PET at [facility] Avid lobulated pre-sacral.? -hb Hypokalemia (Acute) Alcohol abuse (Chronic) DVT prophylaxis (Acute) Multiple rib fractures (Chronic) 03/11/19 [facility] Alcohol withdrawal (Acute) Hypomagnesemia (Acute) Breast nodule (Acute) Sleep disturbance (Acute) Sinus tachycardia (Acute) High anion gap metabolic acidosis (Acute) Elevated blood pressure reading with diagnosis of hypertension (Acute) Pincer nail deformity (Acute) Insomnia (Acute) Thrombocytopenia (Chronic) Elevated bilirubin (Acute) Mixed stress and urge urinary incontinence (Acute) Thyroid nodule (Acute) Anxiety (Chronic) Adverse effect of metronidazole (Acute) Medication monitoring encounter (Acute) Advance care planning (Acute) Cirrhosis of liver with ascites (Acute) Animal bite of right hand with infection (Acute) Umbilical hernia (Acute) Hyperbilirubinemia (Acute) Shortness of breath (Acute) Elevated blood pressure reading without diagnosis of hypertension (Acute) Left arm pain (Acute) Ambulatory dysfunction (Acute) Incontinence (Acute) Anorexia (Acute) Headache (Acute) Depression (Chronic) Chest pain (Acute) Foot pain, right (Acute) Tendinitis of left rotator cuff (Acute) Macrocytosis (Acute 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 Leukopenia (Acute) Headache (Acute) Epigastric abdominal pain (Acute) Calcific tendinitis of left shoulder (Acute) Pulmonary mass (Acute) spiculated massPneumonia (Acute) Depression with suicidal ideation (Acute) Alcohol abuse (Chronic) Diarrhea (Acute) Epigastric pain (Acute) Dehydration (Acute) Discharge planning issues (Acute) Difficult intravenous access (Acute) Multiple IV attempts, usually requires ultrasound placement.PTSD (post-traumatic stress disorder) (Acute) Anemia (Chronic) Depression (Chronic) Foot pain, right (Acute) T12 compression fracture (Acute) Presacral mass (Chronic) Deviated nasal septum (Acute) Frequent falls (Chronic) Head injury (Acute) Ambulatory dysfunction (Chronic) Shoulder pain, right (Chronic) Suicidal ideation (Acute) Dry eye (Acute) Pruritus (Acute) Dystrophic nail (Acute) AMBER (acute kidney injury) (Acute) Iron deficiency anemia (Chronic) Fall (Acute) Atelectasis of left lung (Chronic) Advance directive on file (Acute) Nodule of upper lobe of right lung (Acute ~09/13/18) 01/19/23? Increased in size per [facility].? -[facility]; 12mm SPICULATED -kb Cataract (Chronic 11/07/15) Hypertension (Chronic) high today; she will check readings at homeHyperlipidemia (Chronic) Back pain, chronic (Chronic) Depression (Chronic) Osteopenia (Chronic) Medical History? Adjustment disorder with depressed mood Alcoholic ketosis Anemia Cervical radicular pain neck pain and [facility] 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) pls refrain from alcohol Chronic alcoholism she will not stop drinking unless she checks with me, so that we can help her avert withdrawal I do not think she is capable on her own--she would need placement to achieve required goal of 3 months of sobriety Chronic diarrhea Closed right humeral fracture Corneal ulcer, right (~08/23/18) 08/23/18; UV-kbFracture of humerus, left, closed Genital herpes simplex recurrent gential; suppressive Valtrex GERD (gastroesophageal reflux disease) GI bleed (12/20/16) Hypertension Hypokalemia Hypomagnesemia Incidental lung nodule, greater than or equal to 8mm 1cm, spiculated, stable for many years, recommend f/u in 6 mo Non-cardiac chest pain (09/21/16) [facility] 09/21/16 NEGATIVE MP Osteoarthritis Palliative care patient (03/21/17) Pancreatitis, alcoholic, acute Peripheral edema Photophobia of right eye Pleural effusion on left 03/11/19 [facility] Presacral mass (~09/15/18) 09/15/18 [facility] Sciatica right, epidural injections [facility] Tubular adenoma of colon (01/28/17) Urinary incontinence 01/24/13 urethral suspension and sling at [facility] (bladder suspension 1991) 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 Colonoscopy - [facility] (01/28/17) EGD - [facility] (12/20/16) History of bilateral ligation of fallopian tubes History of Surgical Procedure a. Bladder repair.Repair bladder injury, simple S/P laparoscopic cholecystectomy (~05/19/22) Social History/Home Situation: Leticia lives in a private home in [place], [place]. ? She has a caregiver who comes in once a week for 2 hours each time to assist with laundry, minor house chores, and grocery shopping.? Patient is independent with ADLs using a front-wheeled walker. No longer receives meals on wheels,? does frozen dinners now.? She no longer drives.? Sister lives 2 miles away and helps minimally,? she is taking care of the patient's cat right now. Equipment Owned/DME: 3WW, FWW, SC, grab bars, emergency alert device Subjective: NT. See most recent [employer] notes. Objective: General Observation: NT. See most recent [employer] notes. Mental Status: NT. See most recent [employer] notes. Pain: NT. See most recent [employer] notes. ROM: Right Upper Extremity: ? Shoulder Flexion allows up to 150 degrees. Shoulder abduction allows up to 120 degrees. Elbow flexion WFL. Wrist flexion WFL. Functional opening and closing of hand WFL. Left Upper Extremity: ? Shoulder Flexion allows up to 150 degrees. Shoulder abduction allows up to 120 degrees. Elbow flexion WFL. Wrist flexion WFL. Functional opening and closing of hand WFL. Right Lower Extremity: Hip flexion allows up to 20 degrees. Hip abduction lacks the last 50% of AROM. Knee flexion 30-90 degrees. Knee extension -30 degrees.? Ankle dorsiflexion WFL. Ankle plantarflexion WFL. Left Lower Extremity: Hip flexion allows up to 20 degrees. Hip abduction lacks the last 50% of AROM. Knee flexion 30-90 degrees. Knee extension -30 degrees.? Ankle dorsiflexion WFL. Ankle plantarflexion WFL. Strength: Right Upper Extremity: Shoulder flexors 3-/5. Shoulder abductors 3-/5. Elbow flexors 4/5. Elbow extensors 4/5. [employer] strong. Left Upper Extremity: Shoulder flexors 3-/5. Shoulder abductors 3-/5. Elbow flexors 4/5. Elbow extensors 4/5. Livestock Feeder strong. Right Lower Extremity: Hip flexors 2-/5. Hip abductors 3-/5. Knee flexors 2-/5. Knee extensors 2-/5. Ankle dorsiflexors 2-/5. Ankle plantarflexors 2-/5. Left Lower Extremity: Hip flexors 2-/5. Hip abductors 3-/5. Knee flexors 2-/5. Knee extensors 2-/5. Ankle dorsiflexors 2-/5. Ankle plantarflexors 2-/5. Bed Mobility/Transfers: Sit to stand minimal assist of 2,? moderate cues provided for hand placement Stand to sit minimal assist of 2,? moderate cues provided for hand placement Wheelchair to chair minimal assist of 2,? moderate cues provided for hand placement Scooting backward while on chair moderate assist of 2 Gait: 5 steps + 6 steps + 3 small steps moderate assist of PT and contact guard assist of ELA Childers.? Highly unsteady.? Needed considerable assistance with walker handling. THERA EX: Chest expansion exercises with DBE x 5 B LAQs x 10 Chest expansion exercises with DBE x 5 Ankle pumps x 10 Seated marches x 10 Balance: Static Sitting: Fair Dynamic Sitting: Poor Static Standing: Poor Dynamic Standing: Poor Special Tests: Mobility Limitations Standardized Measure [facility] AM-PAC 6 clicks Basic Mobility Inpatient Short Form: Raw Score: 10 ? CMS Score: 77% deficit Assessment: Significant functional mobility decline, difficulty with walking,? and generalized weakness all increase risk for falls in patient.? Will require SNF placement in for continued rehab to attain goals below. Patient presents with clinical signs and symptoms consistent with current/admitting diagnoses that have resulted to mobility limitations, gait instability, generalized weakness, and impairment of motor control as demonstrated by the following impairment level findings: 1.? Decreased strength to B UE/LE major muscle groups 2.? Impaired static and dynamic standing balance 3.? Decreased activity tolerance 4.? Confusion Impairments are contributing to the following functional limitations: 2.? Inability to safely ambulate due to admitting diagnoses 3.? Increase completion time for mobility ADL performance 4.? Increased fall risk Goals: Goals X1 week 1. Supine-Sit stand by assist NOT MET 2. Sit-Supine stand by assist NOT MET 3. Sit-Stand stand by assist NOT MET 4. Stand-Sit stand by assist NOT MET 5. Bed-Chair stand by assist NOT MET 6. Chair-Bed stand by assist NOT MET 7.?Minimal assist on level surface with use of straight cane for at least 100 feet without report of pain nor dyspnea NOT MET 8.?Minimal assist with stair negotiation while holding onto bilateral rails for at least 5 steps without report of pain nor dyspnea NOT MET 9. Good static and dynamic standing balance/tolerance NOT MET DISCHARGE RECOMMENDATIONS: [] ? Home with no services [] [] ? Home with services [] ? Home with outpatient PT [] [X] ? SNF for continued rehabilitation.? Patient will benefit from senior living facility placement for continued skilled physical therapy services in order to progress mobility level, strength, and balance in preparation for a safe discharge to home. [] ? [facility] [] [] ? SNF versus LTC based on ability to participate and progress [] TREATMENT CODE/TIME: JAMES Thank you for the opportunity to participate in the care of this patient. Tawana Cruz PT, DPT, CLT [facility] [place], [place]
== END 2023-03-18 12:07 | disposition skilled nursing facility (03) | DRG 280 ==
LOC: ER 09:00 → MS 09:31 → ICU 03-06 12:48 → MS 03-07 13:34
PROVIDERS: Internal Medicine; Admitting Provider Family Medicine; Emergency Provider Emergency Medicine; PCP Family Medicine; Visit Provider Family Medicine
DX: I95.9 Hypotension, unspecified (principal); I21.4 Non-ST elevation (NSTEMI) myocardial infarction; J96.01 Acute respiratory failure with hypoxia; C34.11 Malignant neoplasm of upper lobe, right bronchus or lung; K76.6 Portal hypertension; E83.42 Hypomagnesemia; D53.9 Nutritional anemia, unspecified; E87.6 Hypokalemia; F10.20 Alcohol dependence, uncomplicated; K70.11 Alcoholic hepatitis with ascites; D69.6 Thrombocytopenia, unspecified; G47.00 Insomnia, unspecified; R32 Unspecified urinary incontinence; F32.A Depression, unspecified; K70.31 Alcoholic cirrhosis of liver with ascites; K29.20 Alcoholic gastritis without bleeding; R29.6 Repeated falls; W19.XXXA Unspecified fall, initial encounter; F43.10 Post-traumatic stress disorder, unspecified; Z51.5 Encounter for palliative care; Z66 Do not resuscitate; F41.9 Anxiety disorder, unspecified; R10.13 Epigastric pain; I11.0 Hypertensive heart disease with heart failure; I50.9 Heart failure, unspecified
CPT/HCPCS: 36415; 36569; 71275; 80048; 80053; 82550; 83690; 84145; 87493; 96361; 96365; 97110; 97161; 97163; 97530; 99285; 70450; 71045; 72170; 74176; 80320; 83735; 83880; 84484; 85025; 85730; 93005; 93010; 94640; 94667; 94668; 94760; 99222; 99231; 99232; 99233; 99239; J1940; J1941; J2060; J2270; J3480; J3490; J7620; J7626